=== PATIENT | male | born 1960 | race Caucasian/White ===

== ENCOUNTER 2018-01-28 02:40 | Outpatient (RCR) | payer MEDICARE, SELFPAY ==
[2018-01-28] MEDS: Normal Saline Flush 10 ML SYR IVP (08:15)
[2018-01-28] MEDS: Heparin 500 UNITS/5 ML SYRINGE IV (08:16)
[2018-01-28 08:42] LABS: Creatine Kinase 114 U/L (39-308)
[2018-01-28 09:00] VITALS: BP 126/63; PULSE 61; RESP 18; TEMP 37
[2018-01-28 09:15] VITALS: BP 129/68; PULSE 61; RESP 18; TEMP 37.1
[2018-01-28 09:30] VITALS: BP 149/77; PULSE 59; RESP 20; TEMP 37
[2018-01-28 10:00] VITALS: BP 140/73; PULSE 59; RESP 18; TEMP 37
[2018-01-28 10:30] VITALS: BP 135/65; PULSE 60; RESP 18; TEMP 37.1
[2018-01-28 11:00] VITALS: BP 135/70; PULSE 65; RESP 18; TEMP 37.1
[2018-01-29 08:00] VITALS: BP 132/72; PULSE 60; RESP 17; TEMP 36.1
[2018-01-29] MEDS: Heparin 500 UNITS/5 ML SYRINGE IV (08:06)
[2018-01-29] MEDS: Normal Saline Flush 10 ML SYR IVP (08:06)
[2018-01-29 08:15] VITALS: BP 155/76; PULSE 56; RESP 18; TEMP 37.1
[2018-01-29 08:45] VITALS: BP 144/64; PULSE 46; RESP 18; TEMP 37.1
[2018-01-29 09:15] VITALS: BP 151/69; PULSE 42; RESP 18; TEMP 37.2
[2018-02-04] MEDS: Normal Saline Flush 10 ML SYR IVP (10:29)
[2018-02-04] MEDS: IRON SUCROSE COMPLEX 100 MG in Normal Saline 100 ML 420 MG IVPB (10:29)
[2018-02-04] MEDS: Heparin 500 UNITS/5 ML SYRINGE IV (10:29)
[2018-02-04 10:39] LABS: HCT 30.9 % (40.0-50.0); HGB 9.6 g/dL (13.5-17.5)
== END 2018-02-07 ==
LOC: INF 01-29 01:19
PROVIDERS: PCP Family Medicine; Visit Provider Family Medicine
DX: M60.9 Myositis, unspecified (principal); D63.1 Anemia in chronic kidney disease; N18.3 Chronic kidney disease, stage 3 (moderate); I12.9 Hypertensive chronic kidney disease with stage 1 through stage 4 chronic kidney disease, or unspecified chronic kidney disease; Z45.2 Encounter for adjustment and management of vascular access device
CPT/HCPCS: 36591 ×2; 96365 ×3; 96366 ×2; 96372; J0881; J1459 ×2; J1756; J2930; 82550; 85014; 85018

== ENCOUNTER 2018-03-04 01:38 | Outpatient (RCR) | payer MEDICARE, SELFPAY ==
[2018-02-18] MEDS: Heparin 500 UNITS/5 ML SYRINGE IV (08:10)
[2018-02-18] MEDS: Normal Saline Flush 10 ML SYR IVP (08:10)
[2018-02-18 08:16] LABS: HCT 32.7 % (40.0-50.0); HGB 10.2 g/dL (13.5-17.5)
[2018-02-25] MEDS: Heparin 500 UNITS/5 ML SYRINGE IV (08:24)
[2018-02-25] MEDS: Normal Saline Flush 10 ML SYR IVP (08:24)
[2018-02-25 08:26] LABS: Creatine Kinase 144 U/L (39-308)
[2018-02-25 09:03] VITALS: BP 131/68; PULSE 63; RESP 18; TEMP 37.2
[2018-02-25 09:20] VITALS: BP 130/67; PULSE 62; RESP 18; TEMP 37
[2018-02-26] MEDS: Normal Saline Flush 10 ML SYR IVP (08:15)
[2018-02-26] MEDS: Heparin 500 UNITS/5 ML SYRINGE IV (08:16)
[2018-02-26] MEDS: IRON SUCROSE COMPLEX 100 MG in Normal Saline 100 ML 420 MG IVPB (08:28)
[2018-02-26 08:50] VITALS: BP 148/58; PULSE 50; RESP 18; TEMP 36.8
[2018-02-26 09:05] VITALS: BP 154/60; PULSE 49; RESP 18; TEMP 36.8; O2SAT 95
[2018-02-26 09:35] VITALS: BP 151/56; PULSE 46; RESP 18; TEMP 36.5
[2018-02-26 10:05] VITALS: BP 150/55; PULSE 46; RESP 18; TEMP 36.1
[2018-02-26 10:35] VITALS: BP 164/61; PULSE 46; RESP 18; TEMP 36.5
[2018-03-04] MEDS: Normal Saline Flush 10 ML SYR IVP (07:40)
[2018-03-04] MEDS: Heparin 500 UNITS/5 ML SYRINGE IV (07:40)
[2018-03-04 08:04] LABS: HCT 33.4 % (40.0-50.0); HGB 10.5 g/dL (13.5-17.5)
== END 2018-03-09 23:59 | disposition home or self-care (01) ==
LOC: INF 01:38
PROVIDERS: PCP Family Medicine; Visit Provider Family Medicine
DX: M60.9 Myositis, unspecified (principal); D63.1 Anemia in chronic kidney disease; N18.3 Chronic kidney disease, stage 3 (moderate); I12.9 Hypertensive chronic kidney disease with stage 1 through stage 4 chronic kidney disease, or unspecified chronic kidney disease; Z45.2 Encounter for adjustment and management of vascular access device; D46.9 Myelodysplastic syndrome, unspecified
CPT/HCPCS: 36591; 82550; 96365; 96366; 96372; 85014; 85018; J0881; J1459; J1756; J2930

== ENCOUNTER 2018-04-01 00:54 | Outpatient (RCR) | payer MEDICARE, SELFPAY ==
[2018-03-18] MEDS: Normal Saline Flush 10 ML SYR IVP (07:45)
[2018-03-18 07:50] LABS: HCT 32.5 % (40.0-50.0); HGB 10.3 g/dL (13.5-17.5)
[2018-03-18] MEDS: Heparin 500 UNITS/5 ML SYRINGE IV (07:50)
[2018-03-25] MEDS: Normal Saline Flush 10 ML SYR IVP (07:43)
[2018-03-25] MEDS: Heparin 500 UNITS/5 ML SYRINGE IV (07:44)
[2018-03-25 07:51] VITALS: BP 131/65; PULSE 74; RESP 18; TEMP 37.3; O2SAT 99
[2018-03-25 07:59] LABS: Creatine Kinase 113 U/L (39-308)
[2018-03-25 08:40] VITALS: BP 133/62; PULSE 63; RESP 18; TEMP 37.2; O2SAT 99
[2018-03-25 09:00] VITALS: BP 125/62; PULSE 63; RESP 18; TEMP 37.2; O2SAT 99
[2018-03-25 09:40] VITALS: BP 139/69; PULSE 62; RESP 18; TEMP 37.2; O2SAT 98
[2018-03-25 10:15] VITALS: BP 137/72; PULSE 57; RESP 18; TEMP 37.1; O2SAT 99
[2018-03-26] MEDS: IRON SUCROSE COMPLEX 100 MG in Normal Saline 100 ML 420 MG IVPB (07:46)
[2018-03-26] MEDS: Heparin 500 UNITS/5 ML SYRINGE IV (07:47)
[2018-03-26] MEDS: Normal Saline Flush 10 ML SYR IVP (07:47)
[2018-03-26 08:03] VITALS: BP 126/50; PULSE 61; RESP 18; TEMP 37; O2SAT 97
[2018-03-26 08:25] VITALS: BP 143/59; PULSE 52; RESP 18; TEMP 36.8; O2SAT 98
[2018-03-26 08:40] VITALS: BP 150/58; PULSE 58; RESP 18; TEMP 37; O2SAT 98
[2018-03-26 08:56] VITALS: BP 150/25; PULSE 60; RESP 18; TEMP 37.1; O2SAT 98
[2018-03-26 09:20] VITALS: BP 151/62; PULSE 52; RESP 18; TEMP 37; O2SAT 98
== END 2018-04-09 23:59 | disposition home or self-care (01) ==
LOC: INF 00:54
PROVIDERS: PCP Family Medicine; Visit Provider Internal Medicine Hematology & Oncology
DX: M60.9 Myositis, unspecified (principal); N18.3 Chronic kidney disease, stage 3 (moderate); Z45.2 Encounter for adjustment and management of vascular access device; D63.1 Anemia in chronic kidney disease
CPT/HCPCS: 36591; 82550; 96365; 96366; 96372; 96523; 85014; 85018; J0881; J1459; J1756; J2930

== ENCOUNTER 2018-05-06 01:32 | Outpatient (RCR) | payer MEDICARE, SELFPAY ==
[2018-04-15] MEDS: Normal Saline Flush 10 ML SYR IVP (07:40)
[2018-04-15] MEDS: Heparin 500 UNITS/5 ML SYRINGE IV (07:42)
[2018-04-15 08:14] LABS: HCT 31.4 % (40.0-50.0); HGB 9.8 g/dL (13.5-17.5)
[2018-04-22] MEDS: Normal Saline Flush 10 ML SYR IVP (07:48)
[2018-04-22] MEDS: Heparin 500 UNITS/5 ML SYRINGE IV (07:49)
[2018-04-22 07:58] LABS: Abs Immature Grans 0.02 k/cumm (0.0-0.09); Absolute Basophil Count 0.03 k/cumm (0.0-0.2); Absolute Eosinophil Count 0.34 k/cumm (0.0-0.7); Absolute Lymphocyte Count 0.61 k/cumm (1.2-3.4); Absolute Monocyte Count 0.31 k/cumm (0.11-0.7); Absolute Neutrophil Count 2.61 k/cumm (1.2-6.7); Basophils % 0.8; Eosinophils % 8.7; HCT 32.1 % (40.0-50.0); HGB 10.2 g/dL (13.5-17.5); Immature Grans % 0.5; Lymphocytes % 15.6; Mean Corp. HGB Concentration 31.8 g/dL (32.0-36.0); Mean Corpuscular Hemoglobin 30.4 pg (27.0-33.0); Mean Corpuscular Volume 95.8 fL (80-95); Mean Platelet Volume 11.7 fL (8.0-11.0); Monocytes % 7.9; Neutrophils % 66.5; RBC 3.35 m/cumm (4.50-6.00); RBC Distribution Width 17.3 % (11.8-14.1); White Blood Cell Count 3.92 k/cumm (4.4-10.8)
[2018-04-22 07:59] VITALS: BP 118/61; PULSE 74; RESP 18; TEMP 37.2; O2SAT 99
[2018-04-22 08:10] LABS: Creatine Kinase 112 U/L (39-308)
[2018-04-22 08:17] LABS: Anisocytosis 1+; Diff Comment RBC Morph Reviewed; Platelet Count 86 x1000/uL (130-400); Polychromasia Present
[2018-04-22 08:26] VITALS: BP 115/58; PULSE 70; RESP 18; TEMP 37.1; O2SAT 99
[2018-04-22 08:40] VITALS: BP 129/63; PULSE 70; RESP 18; TEMP 36.8; O2SAT 99
[2018-04-22 09:00] VITALS: BP 129/61; PULSE 71; RESP 18; TEMP 36.8; O2SAT 99
[2018-04-22 10:00] VITALS: BP 135/68; PULSE 65; RESP 18; TEMP 37; O2SAT 99
[2018-04-22 12:21] VITALS: BP 149/68; PULSE 64; TEMP 37.1; O2SAT 100
[2018-04-23] VITALS (7 sets, daily range): BP systolic 138–160; BP diastolic 59–66; PULSE 50–65; RESP 18; TEMP 36.6–37.1; O2SAT 97–99
[2018-04-23] MEDS: Heparin 500 UNITS/5 ML SYRINGE IV (07:27)
[2018-04-23] MEDS: Normal Saline Flush 10 ML SYR IVP (07:27)
[2018-04-23] MEDS: IRON SUCROSE COMPLEX 100 MG in Normal Saline 100 ML 420 MG IVPB (07:32)
[2018-05-06] MEDS: Normal Saline Flush 10 ML SYR IVP (07:45)
[2018-05-06] MEDS: Heparin 500 UNITS/5 ML SYRINGE IV (07:46)
[2018-05-06 08:14] LABS: Abs Immature Grans 0.01 k/cumm (0.0-0.09); Absolute Basophil Count 0.05 k/cumm (0.0-0.2); Absolute Eosinophil Count 0.38 k/cumm (0.0-0.7); Absolute Lymphocyte Count 0.59 k/cumm (1.2-3.4); Absolute Monocyte Count 0.38 k/cumm (0.11-0.7); Eosinophils % 7.9; HCT 31.1 % (40.0-50.0); HGB 9.7 g/dL (13.5-17.5); Immature Grans % 0.2; Lymphocytes % 12.3; Mean Corp. HGB Concentration 31.2 g/dL (32.0-36.0); Mean Corpuscular Hemoglobin 30.4 pg (27.0-33.0); Mean Corpuscular Volume 97.5 fL (80-95); Mean Platelet Volume 11.7 fL (8.0-11.0); Monocytes % 7.9; Neutrophils % 70.7; RBC 3.19 m/cumm (4.50-6.00); White Blood Cell Count 4.81 k/cumm (4.4-10.8)
[2018-05-06 08:26] LABS: Platelet Count 64 x1000/uL (130-400)
[2018-05-06 08:27] LABS: Diff Comment Diff Reviewed; Hypochromasia 2+; Polychromasia Present
== END 2018-05-09 23:59 | disposition home or self-care (01) ==
LOC: INF 01:32
PROVIDERS: Internal Medicine; PCP Family Medicine; Visit Provider Family Medicine
DX: M60.9 Myositis, unspecified (principal); D63.1 Anemia in chronic kidney disease; N18.3 Chronic kidney disease, stage 3 (moderate); Z45.2 Encounter for adjustment and management of vascular access device
CPT/HCPCS: 36591; 36592; 82550; 96365; 96366; 96372; 85014; 85018; 85025; J0881; J1459; J1756; J2930

== ENCOUNTER 2018-06-04 00:34 | Outpatient (RCR) | payer MEDICARE, SELFPAY ==
[2018-05-20 07:48] VITALS: BP 106/44; PULSE 67; RESP 18; TEMP 36.7
[2018-05-20 07:57] LABS: Absolute Basophil Count 0.02 k/cumm (0.0-0.2); Absolute Eosinophil Count 0.35 k/cumm (0.0-0.7); Absolute Lymphocyte Count 0.62 k/cumm (1.2-3.4); Absolute Monocyte Count 0.36 k/cumm (0.11-0.7); Absolute Neutrophil Count 1.94 k/cumm (1.2-6.7); Basophils % 0.6; Eosinophils % 10.6; HCT 30.9 % (40.0-50.0); HGB 9.7 g/dL (13.5-17.5); Lymphocytes % 18.8; Mean Corp. HGB Concentration 31.4 g/dL (32.0-36.0); Mean Corpuscular Hemoglobin 30.9 pg (27.0-33.0); Mean Corpuscular Volume 98.4 fL (80-95); Mean Platelet Volume 11.6 fL (8.0-11.0); Monocytes % 10.9; Neutrophils % 59.1; Platelet Count 76 x1000/uL (130-400); RBC 3.14 m/cumm (4.50-6.00); RBC Distribution Width 16.6 % (11.8-14.1); White Blood Cell Count 3.29 k/cumm (4.4-10.8)
[2018-05-20 07:58] LABS: ALT 35 U/L (12-78); AST 25 U/L (15-37); Albumin 3.2 g/dL (3.4-5.0); Alkaline Phosphatase 146 U/L (46-116); Anion Gap 11.8 mmol/L (3-11); BUN 74 mg/dL (7-18); Bilirubin, Total 0.4 mg/dL (0.2-1.0); CO2 22.2 mmol/L (21.0-32.0); CREATININE 3.22 mg/dL (0.70-1.30); Calcium 8.6 mg/dL (8.5-10.1); Chloride 106 mmol/L (98-107); Creatine Kinase 130 U/L (39-308); Estimated GFR 19.77 (mL/min/1.73m2); Glucose 116 mg/dL (70-100); Potassium 4.7 mmol/L (3.5-5.1); Sodium 140 mmol/L (136-145); Total Protein 7.7 g/dL (6.4-8.2)
[2018-05-20 08:16] VITALS: BP 107/46; PULSE 66; TEMP 36.7
[2018-05-20 08:32] VITALS: BP 110/47; PULSE 66; TEMP 36.4
[2018-05-20 08:52] VITALS: BP 99/43; PULSE 60; TEMP 36.3
[2018-05-20 09:51] VITALS: BP 138/57; PULSE 62; TEMP 36.4
[2018-05-20 10:45] VITALS: BP 130/58; PULSE 64; RESP 16; TEMP 36.4; O2SAT 97
[2018-05-20] MEDS: Normal Saline Flush 10 ML SYR IVP (12:22)
[2018-05-21 07:22] VITALS: BP 139/55; PULSE 56; RESP 16; TEMP 36.5; O2SAT 99
[2018-05-21 07:49] VITALS: BP 144/55; PULSE 52; RESP 16; TEMP 36.7; O2SAT 97
[2018-05-21 08:08] VITALS: BP 134/51; PULSE 50; RESP 14; TEMP 36.6; O2SAT 98
[2018-05-21] MEDS: Normal Saline Flush 10 ML SYR IVP (08:24)
[2018-05-21] MEDS: Heparin 500 UNITS/5 ML SYRINGE IV (08:24)
[2018-05-21 08:34] VITALS: BP 134/51; PULSE 50; RESP 16; TEMP 36.6; O2SAT 98
[2018-05-21 09:27] VITALS: BP 154/63; PULSE 49; RESP 16; TEMP 36.5; O2SAT 98
[2018-05-21 10:06] VITALS: BP 164/55; PULSE 55; RESP 14; TEMP 36.3; O2SAT 99
[2018-06-04 07:36] LABS: HCT 30.4 % (40.0-50.0); HGB 9.7 g/dL (13.5-17.5)
[2018-06-04] MEDS: Normal Saline Flush 10 ML SYR IVP (07:43)
[2018-06-04] MEDS: Heparin 500 UNITS/5 ML SYRINGE IV (07:44)
== END 2018-06-09 23:59 | disposition home or self-care (01) ==
LOC: INF 00:34
PROVIDERS: Internal Medicine; PCP Family Medicine; Visit Provider Family Medicine
DX: M60.9 Myositis, unspecified (principal); D63.1 Anemia in chronic kidney disease; N18.3 Chronic kidney disease, stage 3 (moderate); Z45.2 Encounter for adjustment and management of vascular access device
CPT/HCPCS: 36591; 80053; 82550; 96365; 96366; 96372; 96523; 85014; 85018; 85025; J0881; J1459; J1756; J2930

== ENCOUNTER 2018-07-03 00:52 | Outpatient (RCR) | payer MEDICARE, SELFPAY ==
[2018-06-17 07:50] VITALS: BP 114/54; PULSE 69; RESP 18; TEMP 36.7; O2SAT 98
[2018-06-17 08:02] LABS: Absolute Basophil Count 0.02 k/cumm (0.0-0.2); Absolute Eosinophil Count 0.45 k/cumm (0.0-0.7); Absolute Lymphocyte Count 0.59 k/cumm (1.2-3.4); Absolute Monocyte Count 0.41 k/cumm (0.11-0.7); Absolute Neutrophil Count 2.35 k/cumm (1.2-6.7); Basophils % 0.5; Eosinophils % 11.8; HCT 31.1 % (40.0-50.0); HGB 9.8 g/dL (13.5-17.5); Lymphocytes % 15.4; Mean Corp. HGB Concentration 31.5 g/dL (32.0-36.0); Mean Corpuscular Hemoglobin 30.6 pg (27.0-33.0); Mean Corpuscular Volume 97.2 fL (80-95); Mean Platelet Volume 11.3 fL (8.0-11.0); Monocytes % 10.7; Neutrophils % 61.6; RBC Distribution Width 16.2 % (11.8-14.1); White Blood Cell Count 3.82 k/cumm (4.4-10.8)
[2018-06-17 08:16] LABS: Platelet Count 87 x1000/uL (130-400)
[2018-06-17 08:17] LABS: Anisocytosis 1+; Diff Comment Diff Reviewed
[2018-06-17 08:21] LABS: ALT 22 U/L (12-78); AST 19 U/L (15-37); Alkaline Phosphatase 132 U/L (46-116); Anion Gap 12.1 mmol/L (3-11); BUN 59 mg/dL (7-18); Bilirubin, Total 0.4 mg/dL (0.2-1.0); CO2 21.9 mmol/L (21.0-32.0); CREATININE 2.42 mg/dL (0.70-1.30); Calcium 8.7 mg/dL (8.5-10.1); Chloride 105 mmol/L (98-107); Creatine Kinase 97 U/L (39-308); Estimated GFR 27.49 (mL/min/1.73m2); Glucose 114 mg/dL (70-100); Potassium 4.1 mmol/L (3.5-5.1); Sodium 139 mmol/L (136-145); Total Protein 7.7 g/dL (6.4-8.2)
[2018-06-17 08:42] LABS: Iron 46 ug/dL (50-175); Total Iron Binding Capacity 353 ug/dL (250-450); Transferrin Sat 13 % (20-55)
[2018-06-17] MEDS: Normal Saline Flush 10 ML SYR IVP ×2 (08:54→12:31)
[2018-06-17 08:57] VITALS: BP 116/55; PULSE 64; RESP 18; TEMP 36.5; O2SAT 99
[2018-06-17 09:13] VITALS: BP 118/62; PULSE 58; RESP 18; TEMP 36.7; O2SAT 99
[2018-06-17 09:45] VITALS: BP 116/58; PULSE 57; RESP 18; TEMP 36.5; O2SAT 99
[2018-06-17 10:15] VITALS: BP 144/67; PULSE 58; RESP 18; TEMP 37; O2SAT 99
[2018-06-17 10:56] VITALS: BP 146/69; PULSE 57; RESP 18; TEMP 36.8; O2SAT 100
[2018-06-17] MEDS: Heparin 500 UNITS/5 ML SYRINGE IV ×2 (12:07→12:31)
[2018-06-18 07:28] VITALS: BP 125/53; PULSE 68; RESP 18; TEMP 36.8; O2SAT 98
[2018-06-18 07:40] VITALS: BP 124/56; PULSE 64; RESP 18; TEMP 36.7; O2SAT 97
[2018-06-18 07:54] VITALS: BP 130/53; PULSE 60; RESP 18; TEMP 36.8; O2SAT 97
[2018-06-18 08:25] VITALS: BP 125/53; PULSE 52; RESP 18; TEMP 37; O2SAT 98
[2018-06-18 08:53] VITALS: BP 147/59; PULSE 54; RESP 18; TEMP 36.7; O2SAT 97
[2018-06-18 09:25] VITALS: BP 147/61; PULSE 52; RESP 18; TEMP 36.5; O2SAT 98
[2018-06-18] MEDS: Normal Saline Flush 10 ML SYR IVP (11:22)
[2018-06-18] MEDS: Heparin 500 UNITS/5 ML SYRINGE IV (11:23)
[2018-07-03 07:38] LABS: HGB 10.3 g/dL (13.5-17.5)
[2018-07-03] MEDS: Normal Saline Flush 10 ML SYR IVP (07:47)
[2018-07-03] MEDS: Heparin 500 UNITS/5 ML SYRINGE IV (07:48)
== END 2018-07-10 23:59 | disposition home or self-care (01) ==
LOC: INF 00:52
PROVIDERS: Internal Medicine; PCP Family Medicine; Visit Provider Family Medicine
DX: M60.9 Myositis, unspecified (principal); D63.1 Anemia in chronic kidney disease; N18.3 Chronic kidney disease, stage 3 (moderate); Z45.2 Encounter for adjustment and management of vascular access device
CPT/HCPCS: 36591; 80053; 82550; 96365; 96366; 96372; 96523; 83540; 83550; 85014; 85018; 85025; J0881; J1459; J1756; J2930

== ENCOUNTER 2018-07-29 00:23 | Outpatient (RCR) | payer MEDICARE, SELFPAY ==
[2018-07-15] VITALS (7 sets, daily range): BP systolic 101–133; BP diastolic 53–65; PULSE 60–77; RESP 18; TEMP 36.4–36.9; O2SAT 98–100
[2018-07-15] MEDS: Normal Saline Flush 10 ML SYR IVP (08:04)
[2018-07-15] MEDS: Heparin 500 UNITS/5 ML SYRINGE IV (08:04)
[2018-07-15 08:07] LABS: HCT 32.2 % (40.0-50.0); HGB 10.1 g/dL (13.5-17.5)
[2018-07-15 08:20] LABS: Creatine Kinase 131 U/L (39-308)
[2018-07-16 07:21] VITALS: BP 128/56; PULSE 65; RESP 18; TEMP 37; O2SAT 97
[2018-07-16 07:45] VITALS: BP 146/57; PULSE 57; RESP 18; TEMP 36.6; O2SAT 99
[2018-07-16 07:59] VITALS: BP 145/55; PULSE 61; RESP 18; TEMP 36.5; O2SAT 100
[2018-07-16 08:30] VITALS: BP 170/56; PULSE 52; RESP 18; TEMP 36.6; O2SAT 99
[2018-07-16 09:27] VITALS: BP 165/55; PULSE 53; RESP 18; TEMP 36.6; O2SAT 98
[2018-07-29] MEDS: Heparin 500 UNITS/5 ML SYRINGE IV (07:35)
[2018-07-29] MEDS: Normal Saline Flush 10 ML SYR IVP (07:35)
[2018-07-29 07:49] LABS: HCT 32.4 % (40.0-50.0); HGB 10.1 g/dL (13.5-17.5)
== END 2018-08-07 23:59 | disposition home or self-care (01) ==
LOC: INF 00:23
PROVIDERS: Internal Medicine; PCP Family Medicine; Visit Provider Family Medicine
DX: M60.9 Myositis, unspecified (principal); D53.9 Nutritional anemia, unspecified; D63.1 Anemia in chronic kidney disease; N18.3 Chronic kidney disease, stage 3 (moderate); Z45.2 Encounter for adjustment and management of vascular access device
CPT/HCPCS: 36591; 82550; 96365; 96366; 96372; 85014; 85018; J0881; J1459; J1756; J2930

== ENCOUNTER 2018-08-26 01:36 | Outpatient (RCR) | payer MEDICARE, SELFPAY ==
[2018-08-11 07:28] LABS: HCT 33.5 % (40.0-50.0); HGB 10.6 g/dL (13.5-17.5)
[2018-08-11] MEDS: Normal Saline Flush 10 ML SYR IVP (07:39)
[2018-08-11] MEDS: Heparin 500 UNITS/5 ML SYRINGE IV (07:39)
[2018-08-11 07:46] LABS: Creatine Kinase 116 U/L (39-308)
[2018-08-11 07:51] VITALS: BP 101/63; PULSE 65; RESP 18; TEMP 36.1; O2SAT 97
[2018-08-11 08:25] VITALS: BP 114/53; PULSE 64; RESP 18; TEMP 36; O2SAT 98
[2018-08-11 08:53] VITALS: BP 121/55; PULSE 62; RESP 18; TEMP 36.1; O2SAT 98
[2018-08-11 09:26] VITALS: BP 129/58; PULSE 62; RESP 18; TEMP 36.2; O2SAT 97
[2018-08-11 10:20] VITALS: BP 140/67; PULSE 60; RESP 16; TEMP 36.1; O2SAT 95
[2018-08-11 10:59] VITALS: BP 153/72; PULSE 61; RESP 18; TEMP 36; O2SAT 98
[2018-08-12 07:09] VITALS: BP 142/68; PULSE 63; RESP 18; TEMP 36.1; O2SAT 98
[2018-08-12] MEDS: Heparin 500 UNITS/5 ML SYRINGE IV (07:09)
[2018-08-12] MEDS: Normal Saline Flush 10 ML SYR IVP (07:09)
[2018-08-12 07:30] VITALS: BP 150/60; PULSE 59; RESP 18; TEMP 37; O2SAT 98
[2018-08-12 08:06] VITALS: BP 147/56; PULSE 55; RESP 16; TEMP 37; O2SAT 97
[2018-08-12 08:27] VITALS: BP 147/49; PULSE 56; RESP 18; TEMP 36.8; O2SAT 96
[2018-08-12 09:03] VITALS: BP 151/60; PULSE 51; RESP 18; TEMP 36.9; O2SAT 95
[2018-08-26] MEDS: Heparin 500 UNITS/5 ML SYRINGE IV (07:36)
[2018-08-26] MEDS: Normal Saline Flush 10 ML SYR IVP (07:36)
[2018-08-26 07:38] LABS: Absolute Basophil Count 0.04 k/cumm (0.0-0.2); Absolute Eosinophil Count 0.39 k/cumm (0.0-0.7); Absolute Lymphocyte Count 0.64 k/cumm (1.2-3.4); Absolute Monocyte Count 0.39 k/cumm (0.11-0.7); Absolute Neutrophil Count 2.88 k/cumm (1.2-6.7); Basophils % 0.9; HCT 34.6 % (40.0-50.0); Lymphocytes % 14.7; Mean Corp. HGB Concentration 31.8 g/dL (32.0-36.0); Mean Corpuscular Hemoglobin 31.3 pg (27.0-33.0); Mean Corpuscular Volume 98.3 fL (80-95); Mean Platelet Volume 11.7 fL (8.0-11.0); Neutrophils % 66.4; RBC 3.52 m/cumm (4.50-6.00); RBC Distribution Width 15.7 % (11.8-14.1); White Blood Cell Count 4.34 k/cumm (4.4-10.8)
[2018-08-26 08:01] LABS: ALT 27 U/L (12-78); AST 23 U/L (15-37); Albumin 3.1 g/dL (3.4-5.0); Alkaline Phosphatase 150 U/L (46-116); Anion Gap 11.3 mmol/L (3-11); BUN 58 mg/dL (7-18); Bilirubin, Total 0.6 mg/dL (0.2-1.0); CO2 23.7 mmol/L (21.0-32.0); CREATININE 2.05 mg/dL (0.70-1.30); Calcium 9.1 mg/dL (8.5-10.1); Chloride 104 mmol/L (98-107); Estimated GFR 33.29 (mL/min/1.73m2); Glucose 138 mg/dL (70-100); Sodium 139 mmol/L (136-145); Total Protein 8.5 g/dL (6.4-8.2)
[2018-08-26 08:24] LABS: Iron 67 ug/dL (50-175); Platelet Count 68 x1000/uL (130-400); Total Iron Binding Capacity 330 ug/dL (250-450); Transferrin Sat 20 % (20-55)
[2018-08-26 08:25] LABS: Diff Comment Diff Reviewed; RBC Morphology Normal
[2018-08-26 08:39] VITALS: BP 151/60; PULSE 51; RESP 18; TEMP 36.9; O2SAT 95
== END 2018-09-07 23:59 | disposition home or self-care (01) ==
LOC: INF 01:36
PROVIDERS: PCP Family Medicine; Visit Provider Family Medicine
DX: M60.9 Myositis, unspecified (principal); D53.9 Nutritional anemia, unspecified; N18.3 Chronic kidney disease, stage 3 (moderate); D63.1 Anemia in chronic kidney disease; Z45.2 Encounter for adjustment and management of vascular access device
CPT/HCPCS: 36591; 80053; 82550; 96365; 96366; 96372; 83540; 83550; 85014; 85018; 85025; J0881; J1459; J1756; J2930

== ENCOUNTER 2018-10-07 01:04 | Outpatient (RCR) | payer MEDICARE, SELFPAY ==
[2018-09-08] VITALS (7 sets, daily range): BP systolic 106–142; BP diastolic 59–69; PULSE 58–65; RESP 18; TEMP 36.5–36.7; O2SAT 97–99
[2018-09-08 07:57] LABS: Absolute Basophil Count 0.04 k/cumm (0.0-0.2); Absolute Eosinophil Count 0.43 k/cumm (0.0-0.7); Absolute Lymphocyte Count 0.59 k/cumm (1.2-3.4); Absolute Monocyte Count 0.34 k/cumm (0.11-0.7); Absolute Neutrophil Count 2.19 k/cumm (1.2-6.7); Basophils % 1.1; HCT 33.9 % (40.0-50.0); HGB 10.9 g/dL (13.5-17.5); Lymphocytes % 16.4; Mean Corp. HGB Concentration 32.2 g/dL (32.0-36.0); Mean Corpuscular Hemoglobin 31.3 pg (27.0-33.0); Mean Corpuscular Volume 97.4 fL (80-95); Mean Platelet Volume 11.7 fL (8.0-11.0); Monocytes % 9.5; RBC 3.48 m/cumm (4.50-6.00); RBC Distribution Width 15.8 % (11.8-14.1); White Blood Cell Count 3.59 k/cumm (4.4-10.8)
[2018-09-08] MEDS: methylPREDNISolone SUCC 500 MG in Normal Saline 100 ML 432 MG IVPB (08:12)
[2018-09-08 08:13] LABS: ALT 28 U/L (12-78); AST 28 U/L (15-37); Albumin 3.2 g/dL (3.4-5.0); Alkaline Phosphatase 152 U/L (46-116); Anion Gap 10.6 mmol/L (3-11); BUN 54 mg/dL (7-18); Bilirubin, Total 0.4 mg/dL (0.2-1.0); CO2 24.4 mmol/L (21.0-32.0); CREATININE 1.86 mg/dL (0.70-1.30); Calcium 8.9 mg/dL (8.5-10.1); Chloride 106 mmol/L (98-107); Estimated GFR 37.24 (mL/min/1.73m2); Glucose 137 mg/dL (70-100); Potassium 3.9 mmol/L (3.5-5.1); Sodium 141 mmol/L (136-145); Total Protein 7.8 g/dL (6.4-8.2)
[2018-09-08] MEDS: Normal Saline Flush 10 ML SYR IVP (08:16)
[2018-09-08] MEDS: Heparin 500 UNITS/5 ML SYRINGE IV (08:16)
[2018-09-08 08:19] LABS: Anisocytosis 2+; Diff Comment Diff Reviewed; Iron 61 ug/dL (50-175); Platelet Count 72 x1000/uL (130-400); Poikilocytes 1+; Total Iron Binding Capacity 364 ug/dL (250-450); Transferrin Sat 17 % (20-55)
[2018-09-08 08:25] LABS: C-Reactive Protein 0.65 mg/dL (0.0-0.3)
[2018-09-08 09:58] LABS: Creatine Kinase 418 U/L (39-308)
[2018-09-09 07:09] VITALS: BP 140/62; PULSE 61; RESP 18; TEMP 36.6; O2SAT 99
[2018-09-09] MEDS: Heparin 500 UNITS/5 ML SYRINGE IV (07:19)
[2018-09-09] MEDS: Normal Saline Flush 10 ML SYR IVP (07:19)
[2018-09-09 07:40] VITALS: BP 130/70; PULSE 65; RESP 18; TEMP 36.5; O2SAT 99
[2018-09-09 08:00] VITALS: BP 120/62; PULSE 65; RESP 18; TEMP 36.6; O2SAT 98
[2018-09-09 08:36] VITALS: BP 146/57; PULSE 51; RESP 18; TEMP 36
[2018-09-09 09:00] VITALS: BP 159/64; PULSE 60; RESP 18; TEMP 36.6; O2SAT 99
[2018-09-23 07:39] LABS: HCT 32.9 % (40.0-50.0); HGB 10.4 g/dL (13.5-17.5)
[2018-09-23] MEDS: Normal Saline Flush 10 ML SYR IVP (08:00)
[2018-09-23] MEDS: Heparin 500 UNITS/5 ML SYRINGE IV (08:27)
[2018-10-07] VITALS (8 sets, daily range): BP systolic 125–176; BP diastolic 70–91; PULSE 53–65; RESP 16–18; TEMP 36.4–36.9; O2SAT 97–99
[2018-10-07 07:27] LABS: Abs Immature Grans 0.01 k/cumm (0.0-0.09); Absolute Basophil Count 0.04 k/cumm (0.0-0.2); Absolute Eosinophil Count 0.43 k/cumm (0.0-0.7); Absolute Lymphocyte Count 0.61 k/cumm (1.2-3.4); Absolute Monocyte Count 0.37 k/cumm (0.11-0.7); Absolute Neutrophil Count 1.86 k/cumm (1.2-6.7); Basophils % 1.2; HCT 33.8 % (40.0-50.0); HGB 10.7 g/dL (13.5-17.5); Immature Grans % 0.3; Lymphocytes % 18.4; Mean Corp. HGB Concentration 31.7 g/dL (32.0-36.0); Mean Corpuscular Hemoglobin 31.7 pg (27.0-33.0); Mean Platelet Volume 10.8 fL (8.0-11.0); Monocytes % 11.1; RBC 3.38 m/cumm (4.50-6.00); RBC Distribution Width 15.9 % (11.8-14.1); White Blood Cell Count 3.32 k/cumm (4.4-10.8)
[2018-10-07 07:44] LABS: ALT 25 U/L (12-78); AST 20 U/L (15-37); Albumin 3.2 g/dL (3.4-5.0); Alkaline Phosphatase 124 U/L (46-116); BUN 57 mg/dL (7-18); Bilirubin, Total 0.4 mg/dL (0.2-1.0); CREATININE 1.84 mg/dL (0.70-1.30); Calcium 8.6 mg/dL (8.5-10.1); Chloride 104 mmol/L (98-107); Creatine Kinase 100 U/L (39-308); Estimated GFR 37.71 (mL/min/1.73m2); Glucose 182 mg/dL (70-100); Potassium 4.2 mmol/L (3.5-5.1); Sodium 137 mmol/L (136-145); Total Protein 7.6 g/dL (6.4-8.2)
[2018-10-07] MEDS: methylPREDNISolone SUCC 500 MG in Normal Saline 100 ML 432 MG IVPB (07:45)
[2018-10-07] MEDS: Normal Saline Flush 10 ML SYR IVP (07:46)
[2018-10-07 07:51] LABS: Iron 58 ug/dL (50-175); Total Iron Binding Capacity 349 ug/dL (250-450); Transferrin Sat 17 % (20-55)
[2018-10-07 07:53] LABS: Anisocytosis 1+; Diff Comment RBC Morph Reviewed; Macrocytosis 1+; Platelet Count 70 x1000/uL (130-400)
[2018-10-07] MEDS: Heparin 500 UNITS/5 ML SYRINGE IV (12:00)
== END 2018-10-07 23:59 | disposition home or self-care (01) ==
LOC: INF 01:04
PROVIDERS: Nurse Practitioner Adult Health; PCP Family Medicine; Visit Provider Family Medicine
DX: M60.9 Myositis, unspecified (principal); D50.9 Iron deficiency anemia, unspecified; N18.3 Chronic kidney disease, stage 3 (moderate); D63.1 Anemia in chronic kidney disease
CPT/HCPCS: 36591; 80053; 82550; 96365; 96366; 96372; 83540; 83550; 85014; 85018; 85025; 86140; J0881; J1459; J1756; J2930

== ENCOUNTER 2018-11-06 01:55 | Outpatient (RCR) | payer MEDICARE, SELFPAY ==
[2018-10-08 07:31] VITALS: BP 168/75; PULSE 47; RESP 18; TEMP 36.7; O2SAT 98
[2018-10-08 07:45] VITALS: BP 167/73; PULSE 47; RESP 18; TEMP 36.7; O2SAT 98
[2018-10-08 08:00] VITALS: BP 159/64; PULSE 50; RESP 18; TEMP 36.5; O2SAT 99
[2018-10-08 08:41] VITALS: BP 164/72; PULSE 46; RESP 18; TEMP 36.6; O2SAT 100
[2018-10-08 09:16] VITALS: BP 186/75; PULSE 49; RESP 16; O2SAT 99
[2018-10-08 10:30] VITALS: BP 181/95; PULSE 42; RESP 16; TEMP 36.6; O2SAT 100
[2018-10-08] MEDS: Heparin 500 UNITS/5 ML SYRINGE IV (10:59)
[2018-10-08] MEDS: Normal Saline Flush 10 ML SYR IVP (11:00)
[2018-10-20] MEDS: Normal Saline Flush 10 ML SYR IVP (07:25)
[2018-10-20] MEDS: Heparin 500 UNITS/5 ML SYRINGE IV (07:26)
[2018-10-20 07:39] LABS: Absolute Basophil Count 0.04 k/cumm (0.0-0.2); Absolute Eosinophil Count 0.32 k/cumm (0.0-0.7); Absolute Lymphocyte Count 0.62 k/cumm (1.2-3.4); Absolute Monocyte Count 0.33 k/cumm (0.11-0.7); Absolute Neutrophil Count 1.28 k/cumm (1.2-6.7); Basophils % 1.5; Eosinophils % 12.4; HCT 33.2 % (40.0-50.0); HGB 10.4 g/dL (13.5-17.5); Lymphocytes % 23.9; Mean Corp. HGB Concentration 31.3 g/dL (32.0-36.0); Mean Corpuscular Hemoglobin 31.2 pg (27.0-33.0); Mean Corpuscular Volume 99.7 fL (80-95); Mean Platelet Volume 11.8 fL (8.0-11.0); Monocytes % 12.7; Neutrophils % 49.5; RBC 3.33 m/cumm (4.50-6.00); RBC Distribution Width 15.6 % (11.8-14.1); White Blood Cell Count 2.59 k/cumm (4.4-10.8)
[2018-10-20 07:45] LABS: CREATININE 1.89 mg/dL (0.70-1.30); Estimated GFR 36.56 (mL/min/1.73m2)
[2018-10-20 07:58] LABS: Iron 65 ug/dL (50-175); Platelet Count 62 x1000/uL (130-400); RBC Morphology Normal
[2018-11-04 07:18] VITALS: BP 114/70; PULSE 65; RESP 18; TEMP 36.3; O2SAT 98
[2018-11-04] MEDS: methylPREDNISolone SUCC 500 MG in Normal Saline 100 ML 432 MG IVPB (07:21)
[2018-11-04] MEDS: Normal Saline Flush 10 ML SYR IVP (07:22)
[2018-11-04 07:36] LABS: Abs Immature Grans 0.01 k/cumm (0.0-0.09); Absolute Basophil Count 0.03 k/cumm (0.0-0.2); Absolute Eosinophil Count 0.45 k/cumm (0.0-0.7); Absolute Lymphocyte Count 0.67 k/cumm (1.2-3.4); Absolute Monocyte Count 0.36 k/cumm (0.11-0.7); Basophils % 0.8; Eosinophils % 12.1; HCT 34.3 % (40.0-50.0); Immature Grans % 0.3; Mean Corp. HGB Concentration 32.1 g/dL (32.0-36.0); Mean Corpuscular Hemoglobin 31.7 pg (27.0-33.0); Mean Corpuscular Volume 98.8 fL (80-95); Mean Platelet Volume 11.5 fL (8.0-11.0); Monocytes % 9.7; Neutrophils % 59.1; RBC 3.47 m/cumm (4.50-6.00); RBC Distribution Width 15.8 % (11.8-14.1); White Blood Cell Count 3.73 k/cumm (4.4-10.8)
[2018-11-04 07:50] LABS: ALT 24 U/L (12-78); AST 14 U/L (15-37); Albumin 3.2 g/dL (3.4-5.0); Alkaline Phosphatase 125 U/L (46-116); Anion Gap 12.4 mmol/L (3-11); Bilirubin, Total 0.3 mg/dL (0.2-1.0); CO2 22.6 mmol/L (21.0-32.0); CREATININE 2.88 mg/dL (0.70-1.30); Calcium 8.5 mg/dL (8.5-10.1); Chloride 105 mmol/L (98-107); Creatine Kinase 138 U/L (39-308); Estimated GFR 22.49 (mL/min/1.73m2); Glucose 108 mg/dL (70-100); Potassium 4.1 mmol/L (3.5-5.1); Sodium 140 mmol/L (136-145); Total Protein 7.7 g/dL (6.4-8.2)
[2018-11-04 07:55] LABS: Anisocytosis 1+; Basophilic Stippling Present; Diff Comment RBC Morph Reviewed; Platelet Count 74 x1000/uL (130-400); Polychromasia Present
[2018-11-04 07:57] LABS: BUN 90 mg/dL (7-18)
[2018-11-04 08:06] VITALS: BP 116/69; PULSE 62; RESP 18; TEMP 36.1; O2SAT 98
[2018-11-04 08:30] VITALS: BP 137/73; PULSE 63; RESP 18; TEMP 36.5; O2SAT 98
[2018-11-04 08:33] LABS: Iron 54 ug/dL (50-175); Total Iron Binding Capacity 311 ug/dL (250-450); Transferrin Sat 17 % (20-55)
[2018-11-04 09:05] VITALS: BP 126/74; PULSE 59; RESP 18; TEMP 36.3; O2SAT 98
[2018-11-04 10:14] VITALS: BP 127/76; PULSE 59; RESP 18; TEMP 36.5; O2SAT 98
[2018-11-04 11:21] VITALS: BP 137/85; PULSE 60; RESP 18; TEMP 35.8; O2SAT 98
[2018-11-06 07:01] VITALS: BP 132/69; PULSE 55; RESP 18; TEMP 36.2; O2SAT 98
[2018-11-06] MEDS: Normal Saline Flush 10 ML SYR IVP (07:17)
[2018-11-06 07:18] VITALS: BP 128/72; PULSE 55; RESP 18; TEMP 36.1; O2SAT 98
[2018-11-06] MEDS: Heparin 500 UNITS/5 ML SYRINGE IV (07:18)
[2018-11-06 07:51] VITALS: BP 121/59; PULSE 58; RESP 18; TEMP 36; O2SAT 98
[2018-11-06 08:48] VITALS: BP 134/77; PULSE 49; TEMP 36.6; O2SAT 100
[2018-11-06 09:30] VITALS: BP 167/77; PULSE 43; RESP 18; TEMP 36.3; O2SAT 98
[2018-11-06 10:45] VITALS: BP 147/74; PULSE 50; RESP 18; TEMP 36.1; O2SAT 98
== END 2018-11-07 23:59 | disposition home or self-care (01) ==
LOC: INF 01:55
PROVIDERS: Internal Medicine; PCP Family Medicine; Visit Provider Family Medicine
DX: M60.9 Myositis, unspecified (principal); N18.3 Chronic kidney disease, stage 3 (moderate); D63.1 Anemia in chronic kidney disease; D53.9 Nutritional anemia, unspecified
CPT/HCPCS: 36591; 80053; 82550; 96365; 96366; 96372; 82565; 83540; 83550; 85025; J0881; J1459; J1756; J2930

== ENCOUNTER 2018-12-02 01:30 | Outpatient (RCR) | payer MEDICARE, SELFPAY ==
[2018-11-17 08:04] LABS: Abs Immature Grans 0.01 k/cumm (0.0-0.09); Absolute Basophil Count 0.03 k/cumm (0.0-0.2); Absolute Eosinophil Count 0.37 k/cumm (0.0-0.7); Absolute Lymphocyte Count 0.64 k/cumm (1.2-3.4); Absolute Monocyte Count 0.48 k/cumm (0.11-0.7); Absolute Neutrophil Count 2.59 k/cumm (1.2-6.7); Basophils % 0.7; HCT 35.6 % (40.0-50.0); HGB 11.1 g/dL (13.5-17.5); Immature Grans % 0.2; Lymphocytes % 15.5; Mean Corp. HGB Concentration 31.2 g/dL (32.0-36.0); Mean Corpuscular Hemoglobin 31.1 pg (27.0-33.0); Mean Corpuscular Volume 99.7 fL (80-95); Mean Platelet Volume 11.1 fL (8.0-11.0); Monocytes % 11.7; Neutrophils % 62.9; RBC 3.57 m/cumm (4.50-6.00); RBC Distribution Width 15.6 % (11.8-14.1); White Blood Cell Count 4.12 k/cumm (4.4-10.8)
[2018-11-17 08:17] LABS: ALT 35 U/L (12-78); AST 25 U/L (15-37); Albumin 3.1 g/dL (3.4-5.0); Alkaline Phosphatase 129 U/L (46-116); Anion Gap 9.9 mmol/L (3-11); BUN 64 mg/dL (7-18); Bilirubin, Total 0.5 mg/dL (0.2-1.0); CO2 25.1 mmol/L (21.0-32.0); CREATININE 2.15 mg/dL (0.70-1.30); Calcium 8.9 mg/dL (8.5-10.1); Chloride 102 mmol/L (98-107); Estimated GFR 31.51 (mL/min/1.73m2); Glucose 126 mg/dL (70-100); Potassium 4.1 mmol/L (3.5-5.1); Sodium 137 mmol/L (136-145); Total Protein 8.8 g/dL (6.4-8.2)
[2018-11-17] MEDS: Heparin 500 UNITS/5 ML SYRINGE IV (08:20)
[2018-11-17] MEDS: Normal Saline Flush 10 ML SYR IVP (08:20)
[2018-11-17 08:27] LABS: Anisocytosis 1+; Platelet Count 66 x1000/uL (130-400); Polychromasia Present
[2018-12-01 07:24] VITALS: BP 127/65; PULSE 68; RESP 18; TEMP 37.1; O2SAT 98
[2018-12-01] MEDS: Normal Saline Flush 10 ML SYR IVP ×2 (07:25→07:44)
[2018-12-01] MEDS: methylPREDNISolone SUCC 500 MG in Normal Saline 100 ML 432 MG IVPB (07:25)
[2018-12-01 07:42] LABS: ALT 24 U/L (12-78); AST 20 U/L (15-37); Albumin 3.2 g/dL (3.4-5.0); Alkaline Phosphatase 126 U/L (46-116); Anion Gap 12.6 mmol/L (3-11); BUN 64 mg/dL (7-18); Bilirubin, Total 0.6 mg/dL (0.2-1.0); CO2 24.4 mmol/L (21.0-32.0); CREATININE 2.28 mg/dL (0.70-1.30); Calcium 8.7 mg/dL (8.5-10.1); Chloride 104 mmol/L (98-107); Estimated GFR 29.45 (mL/min/1.73m2); Glucose 114 mg/dL (70-100); Potassium 4.2 mmol/L (3.5-5.1); Sodium 141 mmol/L (136-145)
[2018-12-01] MEDS: Heparin 500 UNITS/5 ML SYRINGE IV (07:44)
[2018-12-01 07:46] LABS: Abs Immature Grans 0.01 k/cumm (0.0-0.09); Absolute Basophil Count 0.04 k/cumm (0.0-0.2); Absolute Eosinophil Count 0.48 k/cumm (0.0-0.7); Absolute Lymphocyte Count 0.67 k/cumm (1.2-3.4); Absolute Monocyte Count 0.48 k/cumm (0.11-0.7); Absolute Neutrophil Count 2.89 k/cumm (1.2-6.7); Basophils % 0.9; Eosinophils % 10.5; HCT 36.4 % (40.0-50.0); HGB 11.5 g/dL (13.5-17.5); Immature Grans % 0.2; Lymphocytes % 14.7; Mean Corp. HGB Concentration 31.6 g/dL (32.0-36.0); Mean Corpuscular Hemoglobin 31.4 pg (27.0-33.0); Mean Corpuscular Volume 99.5 fL (80-95); Mean Platelet Volume 11.7 fL (8.0-11.0); Monocytes % 10.5; Neutrophils % 63.2; RBC 3.66 m/cumm (4.50-6.00); RBC Distribution Width 15.7 % (11.8-14.1); White Blood Cell Count 4.57 k/cumm (4.4-10.8)
[2018-12-01 07:58] VITALS: BP 150/78; PULSE 70; RESP 18; TEMP 37.1; O2SAT 97
[2018-12-01 08:07] LABS: Platelet Count 74 x1000/uL (130-400)
[2018-12-01 08:19] VITALS: BP 139/80; PULSE 65; TEMP 37; O2SAT 99
[2018-12-01 08:19] LABS: Iron 83 ug/dL (50-175); Total Iron Binding Capacity 324 ug/dL (250-450); Transferrin Sat 26 % (20-55)
[2018-12-01 08:35] VITALS: BP 133/70; PULSE 62; RESP 18; TEMP 37.1; O2SAT 95
[2018-12-01 09:07] VITALS: BP 145/75; PULSE 63; RESP 18; TEMP 37; O2SAT 98
[2018-12-01 09:37] VITALS: BP 138/76; PULSE 62; RESP 18; TEMP 37; O2SAT 98
[2018-12-02] VITALS (7 sets, daily range): BP systolic 137–169; BP diastolic 58–77; PULSE 45–56; RESP 18; TEMP 35.1–36.1; O2SAT 98–99
[2018-12-02] MEDS: Normal Saline Flush 10 ML SYR IVP (07:17)
[2018-12-02] MEDS: Heparin 500 UNITS/5 ML SYRINGE IV (07:18)
== END 2018-12-07 23:59 | disposition home or self-care (01) ==
LOC: INF 01:30
PROVIDERS: Internal Medicine; PCP Family Medicine; Visit Provider Family Medicine
DX: N18.3 Chronic kidney disease, stage 3 (moderate) (principal); D63.1 Anemia in chronic kidney disease; Z45.2 Encounter for adjustment and management of vascular access device; D50.9 Iron deficiency anemia, unspecified; M60.9 Myositis, unspecified
CPT/HCPCS: 36591; 80053; 96365; 96366; 96372; 83540; 83550; 85025; J0881; J1459; J1756; J2930

== ENCOUNTER 2018-12-30 01:09 | Outpatient (RCR) | payer MEDICARE, SELFPAY ==
[2018-12-15 07:16] LABS: Absolute Basophil Count 0.05 k/cumm (0.0-0.2); Absolute Eosinophil Count 0.44 k/cumm (0.0-0.7); Absolute Lymphocyte Count 0.66 k/cumm (1.2-3.4); Absolute Monocyte Count 0.34 k/cumm (0.11-0.7); Basophils % 1.4; Eosinophils % 11.9; HCT 35.4 % (40.0-50.0); HGB 11.6 g/dL (13.5-17.5); Lymphocytes % 17.9; Mean Corp. HGB Concentration 32.8 g/dL (32.0-36.0); Mean Corpuscular Hemoglobin 32.2 pg (27.0-33.0); Mean Corpuscular Volume 98.3 fL (80-95); Mean Platelet Volume 11.8 fL (8.0-11.0); Monocytes % 9.2; Neutrophils % 59.6; RBC Distribution Width 15.7 % (11.8-14.1); White Blood Cell Count 3.69 k/cumm (4.4-10.8)
[2018-12-15] MEDS: Normal Saline Flush 10 ML SYR IVP (07:23)
[2018-12-15 07:31] LABS: ALT 21 U/L (12-78); AST 14 U/L (15-37); Alkaline Phosphatase 122 U/L (46-116); Anion Gap 10.8 mmol/L (3-11); BUN 69 mg/dL (7-18); Bilirubin, Total 0.5 mg/dL (0.2-1.0); CO2 23.2 mmol/L (21.0-32.0); Calcium 8.6 mg/dL (8.5-10.1); Chloride 106 mmol/L (98-107); Estimated GFR 32.38 (mL/min/1.73m2); Glucose 128 mg/dL (70-100); Potassium 4.1 mmol/L (3.5-5.1); Sodium 140 mmol/L (136-145); Total Protein 8.6 g/dL (6.4-8.2)
[2018-12-15 07:56] LABS: Diff Comment RBC Morph Reviewed; Platelet Count 63 x1000/uL (130-400)
[2018-12-15 07:57] LABS: Anisocytosis 1+; Polychromasia Present
[2018-12-15 08:12] LABS: Iron 74 ug/dL (50-175); Total Iron Binding Capacity 309 ug/dL (250-450); Transferrin Sat 24 % (20-55)
[2018-12-15] MEDS: Heparin 500 UNITS/5 ML SYRINGE IV (08:21)
[2018-12-29 07:41] LABS: Abs Immature Grans 0.01 k/cumm (0.0-0.09); Absolute Basophil Count 0.04 k/cumm (0.0-0.2); Absolute Eosinophil Count 0.62 k/cumm (0.0-0.7); Absolute Lymphocyte Count 0.64 k/cumm (1.2-3.4); Absolute Monocyte Count 0.41 k/cumm (0.11-0.7); Basophils % 1.1; Eosinophils % 16.7; HCT 36.6 % (40.0-50.0); HGB 11.9 g/dL (13.5-17.5); Immature Grans % 0.3; Lymphocytes % 17.3; Mean Corp. HGB Concentration 32.5 g/dL (32.0-36.0); Mean Corpuscular Hemoglobin 32.1 pg (27.0-33.0); Mean Corpuscular Volume 98.7 fL (80-95); Mean Platelet Volume 11.7 fL (8.0-11.0); Monocytes % 11.1; Neutrophils % 53.5; RBC 3.71 m/cumm (4.50-6.00); White Blood Cell Count 3.71 k/cumm (4.4-10.8)
[2018-12-29 07:42] VITALS: BP 123/75; PULSE 65; RESP 18; TEMP 37.1; O2SAT 98
[2018-12-29 07:44] LABS: Absolute Neutrophil Count 1.98 k/cumm (1.2-6.7)
[2018-12-29] MEDS: methylPREDNISolone SUCC 500 MG in Normal Saline 100 ML 432 MG IVPB (07:45)
[2018-12-29] MEDS: Normal Saline Flush 10 ML SYR IVP (07:49)
[2018-12-29 08:08] LABS: ALT 31 U/L (12-78); AST 22 U/L (15-37); Albumin 3.3 g/dL (3.4-5.0); Alkaline Phosphatase 127 U/L (46-116); BUN 61 mg/dL (7-18); Bilirubin, Total 0.4 mg/dL (0.2-1.0); Calcium 8.9 mg/dL (8.5-10.1); Chloride 105 mmol/L (98-107); Creatine Kinase 116 U/L (39-308); Estimated GFR 34.25 (mL/min/1.73m2); Glucose 130 mg/dL (70-100); Potassium 4.4 mmol/L (3.5-5.1); Sodium 138 mmol/L (136-145)
[2018-12-29 08:09] LABS: Platelet Count 66 x1000/uL (130-400)
[2018-12-29 08:10] VITALS: BP 119/71; PULSE 61; RESP 18; TEMP 36.4; O2SAT 98
[2018-12-29 08:10] LABS: Anisocytosis 1+; Diff Comment RBC Morph Reviewed; Macrocytosis 2+
[2018-12-29 08:11] LABS: Poikilocytes 1+
[2018-12-29 08:32] VITALS: BP 112/70; PULSE 59; RESP 18; TEMP 36.6; O2SAT 99
[2018-12-29 08:59] VITALS: BP 124/73; PULSE 60; RESP 18; TEMP 36.4; O2SAT 98
[2018-12-29 10:20] VITALS: BP 149/77; PULSE 56; RESP 18; TEMP 36.3; O2SAT 100
[2018-12-29 11:23] VITALS: BP 161/90; PULSE 57; RESP 18; TEMP 36.6; O2SAT 100
[2018-12-29] MEDS: Heparin 500 UNITS/5 ML SYRINGE IV (11:36)
[2018-12-30 07:12] VITALS: BP 151/69; PULSE 58; RESP 18; TEMP 37; O2SAT 96
[2018-12-30] MEDS: Normal Saline Flush 10 ML SYR IVP (07:12)
[2018-12-30] MEDS: Heparin 500 UNITS/5 ML SYRINGE IV (07:12)
[2018-12-30 07:40] VITALS: BP 119/84; PULSE 56; RESP 18; TEMP 36.4; O2SAT 99
[2018-12-30 07:55] VITALS: BP 156/78; PULSE 50; RESP 18; TEMP 36.6; O2SAT 99
[2018-12-30 08:05] VITALS: BP 169/76; PULSE 50; RESP 18; TEMP 36.6; O2SAT 99
[2018-12-30 08:37] VITALS: BP 166/76; PULSE 51; RESP 18; TEMP 36.6; O2SAT 99
[2018-12-30 09:00] VITALS: BP 157/76; PULSE 50; RESP 18; TEMP 36.4; O2SAT 98
== END 2019-01-07 23:59 | disposition home or self-care (01) ==
LOC: INF 01:09
PROVIDERS: Internal Medicine; PCP Family Medicine; Visit Provider Family Medicine
DX: M60.9 Myositis, unspecified (principal); D50.9 Iron deficiency anemia, unspecified; N18.3 Chronic kidney disease, stage 3 (moderate); D63.1 Anemia in chronic kidney disease
CPT/HCPCS: 36591; 80053; 82550; 96365; 96366; 96372; 96523; 83540; 83550; 85014; 85018; 85025; J0881; J1459; J1756; J2930

== ENCOUNTER 2019-01-27 01:55 | Outpatient (RCR) | payer MEDICARE, SELFPAY ==
[2019-01-12 07:44] LABS: Absolute Basophil Count 0.02 k/cumm (0.0-0.2); Absolute Eosinophil Count 0.35 k/cumm (0.0-0.7); Absolute Lymphocyte Count 0.68 k/cumm (1.2-3.4); Absolute Monocyte Count 0.33 k/cumm (0.11-0.7); Absolute Neutrophil Count 2.62 k/cumm (1.2-6.7); Basophils % 0.5; Eosinophils % 8.8; HCT 37.1 % (40.0-50.0); HGB 11.8 g/dL (13.5-17.5); Mean Corp. HGB Concentration 31.8 g/dL (32.0-36.0); Mean Corpuscular Hemoglobin 31.5 pg (27.0-33.0); Mean Corpuscular Volume 98.9 fL (80-95); Mean Platelet Volume 12.4 fL (8.0-11.0); Monocytes % 8.3; Neutrophils % 65.4; RBC 3.75 m/cumm (4.50-6.00); RBC Distribution Width 16.1 % (11.8-14.1)
[2019-01-12 07:59] LABS: ALT 28 U/L (12-78); AST 19 U/L (15-37); Albumin 3.1 g/dL (3.4-5.0); Alkaline Phosphatase 118 U/L (46-116); Anion Gap 11.1 mmol/L (3-11); BUN 67 mg/dL (7-18); Bilirubin, Total 0.4 mg/dL (0.2-1.0); CO2 20.9 mmol/L (21.0-32.0); CREATININE 1.94 mg/dL (0.70-1.30); Calcium 8.9 mg/dL (8.5-10.1); Chloride 105 mmol/L (98-107); Estimated GFR 35.48 (mL/min/1.73m2); Glucose 269 mg/dL (70-100); Potassium 4.9 mmol/L (3.5-5.1); Sodium 137 mmol/L (136-145); Total Protein 8.5 g/dL (6.4-8.2)
[2019-01-12 08:12] LABS: Platelet Count 59 x1000/uL (130-400)
[2019-01-12] MEDS: Normal Saline Flush 10 ML SYR IVP (08:59)
[2019-01-12] MEDS: Heparin 500 UNITS/5 ML SYRINGE IV (09:00)
[2019-01-12 09:11] LABS: Iron 67 ug/dL (50-175); Total Iron Binding Capacity 281 ug/dL (250-450); Transferrin Sat 24 % (20-55)
[2019-01-26] MEDS: Normal Saline Flush 10 ML SYR IVP (07:00)
[2019-01-26 07:14] VITALS: BP 123/78; PULSE 69; RESP 18; TEMP 37.1; O2SAT 98
[2019-01-26] MEDS: Heparin 500 UNITS/5 ML SYRINGE IV (07:24)
[2019-01-26 07:37] LABS: Creatine Kinase 88 U/L (39-308)
[2019-01-26] MEDS: methylPREDNISolone SUCC 500 MG in Normal Saline 100 ML 432 MG IVPB (07:43)
[2019-01-26 08:11] VITALS: BP 133/73; PULSE 61; RESP 18; TEMP 36.7; O2SAT 99
[2019-01-26 08:30] VITALS: BP 132/73; PULSE 60; RESP 18; TEMP 36.7; O2SAT 98
[2019-01-26 08:45] VITALS: BP 135/81; PULSE 59; RESP 18; TEMP 36.5; O2SAT 99
[2019-01-26 09:11] VITALS: BP 137/82; PULSE 57; RESP 18; TEMP 36.7; O2SAT 97
[2019-01-26 09:58] VITALS: BP 178/82; PULSE 58; TEMP 36.6; O2SAT 100
[2019-01-26 12:27] LABS: Abs Immature Grans 0.01 k/cumm (0.0-0.09); Absolute Basophil Count 0.03 k/cumm (0.0-0.2); Absolute Eosinophil Count 0.34 k/cumm (0.0-0.7); Absolute Lymphocyte Count 0.56 k/cumm (1.2-3.4); Absolute Monocyte Count 0.42 k/cumm (0.11-0.7); Absolute Neutrophil Count 1.58 k/cumm (1.2-6.7); Eosinophils % 11.6; HCT 35.5 % (40.0-50.0); HGB 11.5 g/dL (13.5-17.5); Immature Grans % 0.3; Mean Corp. HGB Concentration 32.4 g/dL (32.0-36.0); Mean Corpuscular Hemoglobin 32.5 pg (27.0-33.0); Mean Corpuscular Volume 100.3 fL (80-95); Mean Platelet Volume 12.3 fL (8.0-11.0); Monocytes % 14.3; Neutrophils % 53.8; RBC 3.54 m/cumm (4.50-6.00); RBC Distribution Width 16.2 % (11.8-14.1); White Blood Cell Count 2.94 k/cumm (4.4-10.8)
[2019-01-26 12:59] LABS: Diff Comment Diff Reviewed; Platelet Count 71 x1000/uL (130-400); RBC Morphology Normal
[2019-01-27 07:00] VITALS: BP 145/79; PULSE 53; RESP 18; TEMP 37.2; O2SAT 98
[2019-01-27 07:32] VITALS: BP 156/80; PULSE 52; RESP 18; TEMP 37.3; O2SAT 98
[2019-01-27 07:48] VITALS: BP 168/81; PULSE 54; RESP 18; TEMP 36.3; O2SAT 98
[2019-01-27 08:09] VITALS: BP 174/78; PULSE 50; RESP 18; TEMP 36.3; O2SAT 98
[2019-01-27 08:12] LABS: CREATININE 1.82 mg/dL (0.70-1.30); Estimated GFR 38.19 (mL/min/1.73m2)
[2019-01-27 08:43] VITALS: BP 123/73; PULSE 64; RESP 18; TEMP 36.5; O2SAT 98
[2019-01-27] MEDS: Heparin 500 UNITS/5 ML SYRINGE IV (09:33)
[2019-01-27] MEDS: Normal Saline Flush 10 ML SYR IVP (09:33)
== END 2019-02-07 23:59 | disposition home or self-care (01) ==
LOC: INF 01:55
PROVIDERS: PCP Family Medicine; Visit Provider Family Medicine
DX: M60.9 Myositis, unspecified (principal); D63.1 Anemia in chronic kidney disease; N18.3 Chronic kidney disease, stage 3 (moderate); Z45.2 Encounter for adjustment and management of vascular access device; D50.9 Iron deficiency anemia, unspecified
CPT/HCPCS: 36591; 80053; 82550; 96365; 96366; 96372; 82565; 83540; 83550; 85025; J0881; J1459; J2930

== ENCOUNTER 2019-02-24 01:07 | Outpatient (RCR) | payer MEDICARE, SELFPAY ==
[2019-02-10 07:36] LABS: HCT 35.4 % (40.0-50.0); HGB 11.1 g/dL (13.5-17.5)
[2019-02-10 07:39] LABS: Estimated GFR 38.68 (mL/min/1.73m2)
[2019-02-10] MEDS: Normal Saline Flush 10 ML SYR IVP (08:13)
[2019-02-10 09:34] LABS: Iron 63 ug/dL (50-175)
[2019-02-10 09:35] LABS: Total Iron Binding Capacity 298 ug/dL (250-450); Transferrin Sat 21 % (20-55)
[2019-02-10] MEDS: Heparin 500 UNITS/5 ML SYRINGE IV (09:50)
[2019-02-23] VITALS (9 sets, daily range): BP systolic 156–191; BP diastolic 73–105; PULSE 55–63; RESP 18–19; TEMP 35.9–37; O2SAT 99–100
[2019-02-23 07:35] LABS: CREATININE 1.41 mg/dL (0.70-1.30); Estimated GFR 51.27 (mL/min/1.73m2)
[2019-02-23] MEDS: methylPREDNISolone SUCC 500 MG in Normal Saline 100 ML 400 MG IVPB (07:38)
[2019-02-23 07:39] LABS: Abs Immature Grans 0.01 k/cumm (0.0-0.09); Absolute Basophil Count 0.03 k/cumm (0.0-0.2); Absolute Eosinophil Count 0.23 k/cumm (0.0-0.7); Absolute Lymphocyte Count 0.48 k/cumm (1.2-3.4); Absolute Monocyte Count 0.28 k/cumm (0.11-0.7); Absolute Neutrophil Count 1.65 k/cumm (1.2-6.7); Basophils % 1.1; Eosinophils % 8.6; HCT 35.3 % (40.0-50.0); Immature Grans % 0.4; Lymphocytes % 17.9; Mean Corp. HGB Concentration 31.2 g/dL (32.0-36.0); Mean Corpuscular Hemoglobin 31.5 pg (27.0-33.0); Mean Corpuscular Volume 101.1 fL (80-95); Mean Platelet Volume 11.2 fL (8.0-11.0); Monocytes % 10.4; Neutrophils % 61.6; RBC 3.49 m/cumm (4.50-6.00); RBC Distribution Width 15.8 % (11.8-14.1); White Blood Cell Count 2.68 k/cumm (4.4-10.8)
[2019-02-23] MEDS: Normal Saline Flush 10 ML SYR IVP (07:39)
[2019-02-23 07:56] LABS: Creatine Kinase 88 U/L (39-308)
[2019-02-23 08:02] LABS: Diff Comment RBC Morph Reviewed; Hypochromasia 1+; Platelet Count 67 x1000/uL (130-400)
[2019-02-23] MEDS: Heparin 500 UNITS/5 ML SYRINGE IV (08:16)
[2019-02-24] VITALS (7 sets, daily range): BP systolic 166–191; BP diastolic 62–80; PULSE 42–52; TEMP 36.3–36.8; O2SAT 98–100
[2019-02-24] MEDS: Normal Saline Flush 10 ML SYR IVP (07:14)
[2019-02-24] MEDS: Heparin 500 UNITS/5 ML SYRINGE IV (07:15)
== END 2019-03-09 23:59 | disposition home or self-care (01) ==
LOC: INF 01:07
PROVIDERS: PCP Family Medicine; Visit Provider Family Medicine
DX: M60.9 Myositis, unspecified (principal); D50.9 Iron deficiency anemia, unspecified; N18.3 Chronic kidney disease, stage 3 (moderate); D63.1 Anemia in chronic kidney disease; Z45.2 Encounter for adjustment and management of vascular access device
CPT/HCPCS: 36591; 82550; 96365; 96366; 96372; 96523; 82565; 83540; 83550; 85014; 85018; 85025; J0881; J1459; J2930

== ENCOUNTER 2019-03-09 01:42 | Outpatient (RCR) | payer MEDICARE, SELFPAY ==
[2019-03-09] MEDS: Heparin 500 UNITS/5 ML SYRINGE IV (07:04)
[2019-03-09] MEDS: Normal Saline Flush 10 ML SYR IVP (07:04)
[2019-03-09 07:17] LABS: Abs Immature Grans 0.01 k/cumm (0.0-0.09); Absolute Basophil Count 0.04 k/cumm (0.0-0.2); Absolute Eosinophil Count 0.36 k/cumm (0.0-0.7); Absolute Lymphocyte Count 0.58 k/cumm (1.2-3.4); Absolute Monocyte Count 0.47 k/cumm (0.11-0.7); Absolute Neutrophil Count 3.05 k/cumm (1.2-6.7); Basophils % 0.9; HCT 35.3 % (40.0-50.0); HGB 11.3 g/dL (13.5-17.5); Immature Grans % 0.2; Lymphocytes % 12.9; Mean Corpuscular Hemoglobin 32.1 pg (27.0-33.0); Mean Corpuscular Volume 100.3 fL (80-95); Mean Platelet Volume 11.2 fL (8.0-11.0); Monocytes % 10.4; Neutrophils % 67.6; RBC 3.52 m/cumm (4.50-6.00); RBC Distribution Width 15.1 % (11.8-14.1); White Blood Cell Count 4.51 k/cumm (4.4-10.8)
[2019-03-09 07:42] LABS: Diff Comment RBC Morph Reviewed; Macrocytosis 2+; Platelet Count 78 x1000/uL (130-400)
[2019-03-09 07:43] LABS: ALT 26 U/L (16-63); AST 25 U/L (15-37); Alkaline Phosphatase 120 U/L (46-116); Anion Gap 10.9 mmol/L (3-11); BUN 41 mg/dL (7-18); Bilirubin, Total 0.5 mg/dL (0.2-1.0); CO2 25.1 mmol/L (21.0-32.0); CREATININE 1.67 mg/dL (0.70-1.30); Calcium 8.6 mg/dL (8.5-10.1); Chloride 105 mmol/L (98-107); Estimated GFR 42.18 (mL/min/1.73m2); Ferritin 503 ng/mL (8-388); Glucose 173 mg/dL (70-100); Potassium 4.1 mmol/L (3.5-5.1); Sodium 141 mmol/L (136-145); Total Protein 8.4 g/dL (6.4-8.2)
[2019-03-09 08:16] LABS: Iron 53 ug/dL (50-175); Total Iron Binding Capacity 290 ug/dL (250-450); Transferrin Sat 18 % (20-55)
== END 2019-03-09 23:59 | disposition home or self-care (01) ==
LOC: INF 01:42
PROVIDERS: Nurse Practitioner Adult Health; PCP Family Medicine; Visit Provider Family Medicine
DX: D50.9 Iron deficiency anemia, unspecified (principal); N18.3 Chronic kidney disease, stage 3 (moderate); D63.1 Anemia in chronic kidney disease
CPT/HCPCS: 36591; 80053; 96365; 96366; 96372; 82728; 83540; 83550; 85025; J0881; J1756

== ENCOUNTER 2019-04-06 01:59 | Outpatient (RCR) | payer MEDICARE, SELFPAY ==
[2019-03-23] VITALS (10 sets, daily range): BP systolic 144–178; BP diastolic 73–95; PULSE 63–68; RESP 18–19; TEMP 36.7–37.1; O2SAT 94–99
[2019-03-23 07:23] LABS: Abs Immature Grans 0.01 k/cumm (0.0-0.09); Absolute Basophil Count 0.03 k/cumm (0.0-0.2); Absolute Eosinophil Count 0.33 k/cumm (0.0-0.7); Absolute Monocyte Count 0.44 k/cumm (0.11-0.7); Absolute Neutrophil Count 2.03 k/cumm (1.2-6.7); Basophils % 0.9; Eosinophils % 9.9; HCT 36.8 % (40.0-50.0); HGB 11.9 g/dL (13.5-17.5); Immature Grans % 0.3; Mean Corp. HGB Concentration 32.3 g/dL (32.0-36.0); Mean Corpuscular Hemoglobin 32.2 pg (27.0-33.0); Mean Corpuscular Volume 99.5 fL (80-95); Monocytes % 13.2; Neutrophils % 60.7; RBC Distribution Width 15.1 % (11.8-14.1); White Blood Cell Count 3.34 k/cumm (4.4-10.8)
[2019-03-23 07:30] LABS: CREATININE 1.54 mg/dL (0.70-1.30); Creatine Kinase 86 U/L (39-308); Estimated GFR 46.31 (mL/min/1.73m2)
[2019-03-23 07:33] LABS: Platelet Count 73 x1000/uL (130-400)
[2019-03-23 07:34] LABS: Diff Comment RBC Morph Reviewed; RBC Morphology Normal
[2019-03-23] MEDS: methylPREDNISolone SUCC 500 MG in Normal Saline 100 ML 432 MG IVPB (07:35)
[2019-03-23] MEDS: Normal Saline Flush 10 ML SYR IVP (07:38)
[2019-03-23] MEDS: Heparin 500 UNITS/5 ML SYRINGE (12:25)
[2019-03-24] VITALS (10 sets, daily range): BP systolic 155–184; BP diastolic 74–83; PULSE 51–68; RESP 18–19; TEMP 36.6–37; O2SAT 97–99
[2019-03-24] MEDS: Normal Saline Flush 10 ML SYR IVP (07:17)
[2019-03-24] MEDS: Heparin 500 UNITS/5 ML SYRINGE ×2 (07:17→10:40)
[2019-04-06 07:47] LABS: Absolute Basophil Count 0.05 k/cumm (0.0-0.2); Absolute Eosinophil Count 0.36 k/cumm (0.0-0.7); Absolute Lymphocyte Count 0.65 k/cumm (1.2-3.4); Absolute Monocyte Count 0.34 k/cumm (0.11-0.7); Absolute Neutrophil Count 2.79 k/cumm (1.2-6.7); Basophils % 1.2; Eosinophils % 8.6; HCT 37.6 % (40.0-50.0); HGB 11.7 g/dL (13.5-17.5); Lymphocytes % 15.5; Mean Corp. HGB Concentration 31.1 g/dL (32.0-36.0); Mean Corpuscular Hemoglobin 31.2 pg (27.0-33.0); Mean Corpuscular Volume 100.3 fL (80-95); Mean Platelet Volume 11.5 fL (8.0-11.0); Monocytes % 8.1; Neutrophils % 66.6; RBC 3.75 m/cumm (4.50-6.00); RBC Distribution Width 14.8 % (11.8-14.1); White Blood Cell Count 4.19 k/cumm (4.4-10.8)
[2019-04-06 07:49] LABS: CREATININE 1.63 mg/dL (0.70-1.30); Estimated GFR 43.23 (mL/min/1.73m2)
[2019-04-06 08:08] LABS: Iron 73 ug/dL (50-175); Total Iron Binding Capacity 303 ug/dL (250-450); Transferrin Sat 24 % (20-55)
[2019-04-06 08:15] LABS: Diff Comment RBC Morph Reviewed; Platelet Count 64 x1000/uL (130-400); RBC Morphology Normal
[2019-04-06] MEDS: Normal Saline Flush 10 ML SYR IVP (08:26)
[2019-04-06] MEDS: Heparin 500 UNITS/5 ML SYRINGE (08:27)
[2019-04-07 10:51] LABS: Hepatitis C Ab w Rflx HCV PCR Negative (NEGAT)
== END 2019-04-09 23:59 | disposition home or self-care (01) ==
LOC: INF 01:59
PROVIDERS: Nurse Practitioner Adult Health; PCP Family Medicine; Visit Provider Family Medicine
DX: M60.9 Myositis, unspecified (principal); N18.3 Chronic kidney disease, stage 3 (moderate); D63.1 Anemia in chronic kidney disease; D50.9 Iron deficiency anemia, unspecified; Z45.2 Encounter for adjustment and management of vascular access device
CPT/HCPCS: 36591; 82550; 86803; 96365; 96366; 96372; 96523; 82565; 83540; 83550; 85025; 87522; J0881; J1459; J2930

== ENCOUNTER 2019-05-04 02:57 | Outpatient (RCR) | payer MEDICARE, SELFPAY ==
[2019-04-20] VITALS (9 sets, daily range): BP systolic 129–166; BP diastolic 75–82; PULSE 61–73; RESP 17–19; TEMP 37–37.1; O2SAT 98–99
[2019-04-20 07:20] LABS: Absolute Basophil Count 0.04 k/cumm (0.0-0.2); Absolute Eosinophil Count 0.38 k/cumm (0.0-0.7); Absolute Lymphocyte Count 0.59 k/cumm (1.2-3.4); Absolute Monocyte Count 0.29 k/cumm (0.11-0.7); Absolute Neutrophil Count 1.67 k/cumm (1.2-6.7); Basophils % 1.3; Eosinophils % 12.8; HCT 36.9 % (40.0-50.0); HGB 11.7 g/dL (13.5-17.5); Lymphocytes % 19.9; Mean Corp. HGB Concentration 31.7 g/dL (32.0-36.0); Mean Corpuscular Hemoglobin 31.3 pg (27.0-33.0); Mean Corpuscular Volume 98.7 fL (80-95); Mean Platelet Volume 10.5 fL (8.0-11.0); Monocytes % 9.8; Neutrophils % 56.2; RBC 3.74 m/cumm (4.50-6.00); RBC Distribution Width 15.2 % (11.8-14.1); White Blood Cell Count 2.97 k/cumm (4.4-10.8)
[2019-04-20] MEDS: methylPREDNISolone SUCC 500 MG in Normal Saline 100 ML 432 MG IVPB (07:29)
[2019-04-20 07:31] LABS: CREATININE 1.67 mg/dL (0.70-1.30); Creatine Kinase 82 U/L (39-308); Estimated GFR 42.03 (mL/min/1.73m2)
[2019-04-20 07:33] LABS: Diff Comment PLT Morph Reviewed; Platelet Count 73 x1000/uL (130-400); Polychromasia Present
[2019-04-20] MEDS: Normal Saline Flush 10 ML SYR IVP (07:34)
[2019-04-20 08:22] LABS: Iron 56 ug/dL (50-175); Total Iron Binding Capacity 304 ug/dL (250-450); Transferrin Sat 18 % (20-55)
[2019-04-21] VITALS (9 sets, daily range): BP systolic 157–185; BP diastolic 70–79; PULSE 54–63; RESP 18–19; TEMP 36.6–37.1; O2SAT 97–99
[2019-04-21] MEDS: Normal Saline Flush 10 ML SYR IVP (07:25)
[2019-04-21] MEDS: Heparin 500 UNITS/5 ML SYRINGE IV (07:29)
[2019-05-04] MEDS: Normal Saline Flush 10 ML SYR IVP (07:16)
[2019-05-04] MEDS: Heparin 500 UNITS/5 ML SYRINGE IV (07:17)
[2019-05-04 07:42] LABS: Absolute Basophil Count 0.04 k/cumm (0.0-0.2); Absolute Lymphocyte Count 0.56 k/cumm (1.2-3.4); Absolute Neutrophil Count 2.82 k/cumm (1.2-6.7); Basophils % 0.9; CREATININE 1.76 mg/dL (0.70-1.30); Eosinophils % 9.5; Estimated GFR 39.56 (mL/min/1.73m2); HCT 37.8 % (40.0-50.0); HGB 12.1 g/dL (13.5-17.5); Lymphocytes % 13.3; Mean Corpuscular Hemoglobin 31.5 pg (27.0-33.0); Mean Corpuscular Volume 98.4 fL (80-95); Monocytes % 9.5; Neutrophils % 66.8; RBC 3.84 m/cumm (4.50-6.00); RBC Distribution Width 15.4 % (11.8-14.1); White Blood Cell Count 4.22 k/cumm (4.4-10.8)
[2019-05-04 08:03] LABS: Anisocytosis 1+; Diff Comment Diff Reviewed; Platelet Count 70 x1000/uL (130-400)
[2019-05-04 08:22] LABS: Iron 58 ug/dL (65-175); Total Iron Binding Capacity 329 ug/dL (250-450); Transferrin Sat 18 % (20-55)
[2019-05-04] MEDS: IRON SUCROSE COMPLEX 300 MG in Normal Saline 250 ML 176.667 MG IVPB (08:45)
== END 2019-05-09 23:59 | disposition home or self-care (01) ==
LOC: INF 02:57
PROVIDERS: Nurse Practitioner Adult Health; PCP Family Medicine; Visit Provider Family Medicine
DX: M60.9 Myositis, unspecified (principal); N18.3 Chronic kidney disease, stage 3 (moderate); D63.1 Anemia in chronic kidney disease
CPT/HCPCS: 36591; 82550; 96365; 96366; 96372; 82565; 83540; 83550; 85025; J0881; J1459; J1756; J2930

== ENCOUNTER 2019-06-01 01:16 | Outpatient (RCR) | payer MEDICARE, SELFPAY ==
[2019-05-18] MEDS: methylPREDNISolone SUCC 500 MG in Normal Saline 100 ML 200 MG IVPB (07:40)
[2019-05-18] MEDS: Normal Saline Flush 10 ML SYR IVP (07:47)
[2019-05-18] MEDS: Heparin 500 UNITS/5 ML SYRINGE IV (07:48)
[2019-05-18 07:50] VITALS: BP 135/74; PULSE 72; RESP 19; TEMP 37.1; O2SAT 98
[2019-05-18 08:16] VITALS: BP 142/74; PULSE 64; RESP 19; TEMP 36.8; O2SAT 98
[2019-05-18 08:31] VITALS: BP 127/73; PULSE 63; RESP 19; TEMP 37; O2SAT 99
[2019-05-18 08:44] LABS: Absolute Basophil Count 0.04 k/cumm (0.0-0.2); Absolute Eosinophil Count 0.32 k/cumm (0.0-0.7); Absolute Lymphocyte Count 0.71 k/cumm (1.2-3.4); Absolute Monocyte Count 0.49 k/cumm (0.11-0.7); Absolute Neutrophil Count 1.05 k/cumm (1.2-6.7); Basophils % 1.5; Eosinophils % 12.3; HCT 34.7 % (40.0-50.0); HGB 10.9 g/dL (13.5-17.5); Lymphocytes % 27.2; Mean Corp. HGB Concentration 31.4 g/dL (32.0-36.0); Mean Corpuscular Hemoglobin 30.7 pg (27.0-33.0); Mean Corpuscular Volume 97.7 fL (80-95); Mean Platelet Volume 10.8 fL (8.0-11.0); Monocytes % 18.8; Neutrophils % 40.2; Platelet Count 73 x1000/uL (130-400); RBC 3.55 m/cumm (4.50-6.00); RBC Distribution Width 15.2 % (11.8-14.1); White Blood Cell Count 2.61 k/cumm (4.4-10.8)
[2019-05-18 08:55] LABS: Creatine Kinase 80 U/L (39-308); Estimated GFR 36.22 (mL/min/1.73m2)
[2019-05-18 10:01] VITALS: BP 166/77; PULSE 61; RESP 19; TEMP 35.9; O2SAT 98
[2019-05-19 07:00] VITALS: BP 159/77; PULSE 56; RESP 19; TEMP 37.1; O2SAT 98
[2019-05-19 07:24] VITALS: BP 161/77; PULSE 55; RESP 19; TEMP 37.1; O2SAT 98
[2019-05-19] MEDS: Heparin 500 UNITS/5 ML SYRINGE IV (07:30)
[2019-05-19] MEDS: Normal Saline Flush 10 ML SYR IVP (07:30)
[2019-05-19 07:39] VITALS: BP 181/69; PULSE 57; RESP 18; TEMP 36.7; O2SAT 96
[2019-05-19 07:55] VITALS: BP 154/75; PULSE 52; RESP 19; TEMP 37; O2SAT 96
[2019-05-19 08:25] VITALS: BP 148/73; PULSE 53; RESP 18; TEMP 36.7; O2SAT 98
[2019-06-01 07:12] LABS: Absolute Basophil Count 0.06 k/cumm (0.0-0.2); Absolute Eosinophil Count 0.31 k/cumm (0.0-0.7); Absolute Lymphocyte Count 0.64 k/cumm (1.2-3.4); Absolute Monocyte Count 0.39 k/cumm (0.11-0.7); Absolute Neutrophil Count 2.52 k/cumm (1.2-6.7); Basophils % 1.5; Eosinophils % 7.9; HCT 34.9 % (40.0-50.0); HGB 11.2 g/dL (13.5-17.5); Lymphocytes % 16.3; Mean Corp. HGB Concentration 32.1 g/dL (32.0-36.0); Mean Corpuscular Hemoglobin 31.5 pg (27.0-33.0); Mean Platelet Volume 11.6 fL (8.0-11.0); Monocytes % 9.9; Neutrophils % 64.4; RBC 3.56 m/cumm (4.50-6.00); RBC Distribution Width 16.1 % (11.8-14.1); White Blood Cell Count 3.92 k/cumm (4.4-10.8)
[2019-06-01 07:17] LABS: CREATININE 1.65 mg/dL (0.70-1.30); Estimated GFR 42.62 (mL/min/1.73m2)
[2019-06-01 07:32] LABS: Anisocytosis 1+; Diff Comment RBC Morph Reviewed; Platelet Count 57 x1000/uL (130-400)
[2019-06-01 08:03] LABS: Iron 66 ug/dL (65-175); Total Iron Binding Capacity 284 ug/dL (250-450); Transferrin Sat 23 % (20-55)
[2019-06-01] MEDS: Heparin 500 UNITS/5 ML SYRINGE IV (08:56)
[2019-06-01] MEDS: Normal Saline Flush 10 ML SYR IVP (08:56)
== END 2019-06-09 23:59 | disposition home or self-care (01) ==
LOC: INF 01:16
PROVIDERS: Nurse Practitioner Adult Health; PCP Family Medicine; Visit Provider Family Medicine
DX: M60.9 Myositis, unspecified (principal); N18.3 Chronic kidney disease, stage 3 (moderate); D63.1 Anemia in chronic kidney disease; Z45.2 Encounter for adjustment and management of vascular access device
CPT/HCPCS: 36591; 82550; 96365; 96366; 96372; 82565; 83540; 83550; 85025; J0881; J1459; J2930

== ENCOUNTER 2019-06-29 01:02 | Outpatient (RCR) | payer MEDICARE, SELFPAY ==
[2019-06-15 07:24] LABS: Abs Immature Grans 0.01 k/cumm (0.0-0.09); Absolute Basophil Count 0.04 k/cumm (0.0-0.2); Absolute Lymphocyte Count 0.62 k/cumm (1.2-3.4); Absolute Monocyte Count 0.34 k/cumm (0.11-0.7); Absolute Neutrophil Count 1.99 k/cumm (1.2-6.7); Basophils % 1.1; Eosinophils % 14.3; HGB 11.2 g/dL (13.5-17.5); Immature Grans % 0.3 %; Lymphocytes % 17.7; Mean Corpuscular Hemoglobin 31.5 pg (27.0-33.0); Mean Corpuscular Volume 98.6 fL (80-95); Mean Platelet Volume 11.1 fL (8.0-11.0); Monocytes % 9.7; Neutrophils % 56.9; RBC 3.55 m/cumm (4.50-6.00); RBC Distribution Width 16.1 % (11.8-14.1)
[2019-06-15 07:35] LABS: CREATININE 1.56 mg/dL (0.70-1.30); Creatine Kinase 135 U/L (39-308); Estimated GFR 45.47 (mL/min/1.73m2)
[2019-06-15 07:48] VITALS: BP 135/80; PULSE 63; RESP 18; TEMP 35.8; O2SAT 99
[2019-06-15 07:50] LABS: Platelet Count 76 x1000/uL (130-400)
[2019-06-15] MEDS: methylPREDNISolone SUCC 500 MG in Normal Saline 100 ML 432 MG IVPB (07:50)
[2019-06-15 07:51] LABS: Anisocytosis 1+; Diff Comment Diff Reviewed; Polychromasia Present
[2019-06-15 08:21] VITALS: BP 131/75; PULSE 64; RESP 18; TEMP 35.6; O2SAT 98
[2019-06-15] MEDS: Heparin 500 UNITS/5 ML SYRINGE IV (08:23)
[2019-06-15] MEDS: Normal Saline Flush 10 ML SYR IVP (08:23)
[2019-06-15 08:36] VITALS: BP 136/73; PULSE 64; RESP 19; TEMP 35.6; O2SAT 96
[2019-06-15 09:07] VITALS: BP 146/69; PULSE 64; RESP 18; TEMP 36.6; O2SAT 99
[2019-06-15 09:37] VITALS: BP 154/81; PULSE 64; RESP 18; TEMP 36.6; O2SAT 99
[2019-06-15 10:07] VITALS: BP 157/94; PULSE 65; RESP 19; TEMP 35.8; O2SAT 99
[2019-06-16 07:37] VITALS: BP 127/75; PULSE 63; RESP 19; TEMP 35.7; O2SAT 95
[2019-06-16 07:43] VITALS: BP 143/70; PULSE 67; RESP 19; TEMP 35.7; O2SAT 98
[2019-06-16] MEDS: Normal Saline Flush 10 ML SYR IVP (07:44)
[2019-06-16] MEDS: Heparin 500 UNITS/5 ML SYRINGE IV (07:44)
[2019-06-16 07:58] VITALS: BP 133/69; PULSE 64; RESP 18; TEMP 35.7; O2SAT 93
[2019-06-16 08:28] VITALS: BP 151/67; PULSE 63; RESP 19; TEMP 35.3; O2SAT 97
[2019-06-16 08:58] VITALS: BP 163/73; PULSE 65; RESP 18; TEMP 35.4; O2SAT 98
[2019-06-16 09:38] VITALS: BP 155/74; PULSE 54; RESP 18; TEMP 35.5; O2SAT 99
[2019-06-29 07:28] LABS: Abs Immature Grans 0.01 k/cumm (0.0-0.09); Absolute Basophil Count 0.03 k/cumm (0.0-0.2); Absolute Eosinophil Count 0.31 k/cumm (0.0-0.7); Absolute Lymphocyte Count 0.65 k/cumm (1.2-3.4); Absolute Monocyte Count 0.39 k/cumm (0.11-0.7); Absolute Neutrophil Count 2.84 k/cumm (1.2-6.7); Basophils % 0.7; Eosinophils % 7.3; HCT 35.3 % (40.0-50.0); HGB 11.3 g/dL (13.5-17.5); Immature Grans % 0.2 %; Lymphocytes % 15.4; Mean Corpuscular Hemoglobin 31.3 pg (27.0-33.0); Mean Corpuscular Volume 97.8 fL (80-95); Mean Platelet Volume 11.4 fL (8.0-11.0); Monocytes % 9.2; Neutrophils % 67.2; RBC 3.61 m/cumm (4.50-6.00); RBC Distribution Width 16.7 % (11.8-14.1); White Blood Cell Count 4.23 k/cumm (4.4-10.8)
[2019-06-29 07:35] LABS: CREATININE 1.69 mg/dL (0.70-1.30); Estimated GFR 41.46 (mL/min/1.73m2)
[2019-06-29 07:47] LABS: Anisocytosis 1+; Diff Comment PLT Morph Reviewed; Platelet Count 59 x1000/uL (130-400); Polychromasia Present
[2019-06-29 08:17] LABS: Iron 84 ug/dL (65-175); Total Iron Binding Capacity 310 ug/dL (250-450); Transferrin Sat 27 % (20-55)
[2019-06-29] MEDS: Normal Saline Flush 10 ML SYR IVP (08:25)
[2019-06-29] MEDS: Heparin 500 UNITS/5 ML SYRINGE IV (08:25)
== END 2019-07-10 23:59 | disposition home or self-care (01) ==
LOC: INF 01:02
PROVIDERS: Nurse Practitioner Adult Health; PCP Family Medicine; Visit Provider Family Medicine
DX: M60.9 Myositis, unspecified (principal); N18.3 Chronic kidney disease, stage 3 (moderate); D63.1 Anemia in chronic kidney disease
CPT/HCPCS: 36591; 82550; 96365; 96366; 96372; 82565; 83540; 83550; 85025; J0881; J1459; J2930

== ENCOUNTER 2019-07-27 02:57 | Outpatient (RCR) | payer MEDICARE, SELFPAY ==
[2019-07-13 07:15] LABS: Absolute Basophil Count 0.02 k/cumm (0.0-0.2); Absolute Eosinophil Count 0.35 k/cumm (0.0-0.7); Absolute Lymphocyte Count 0.47 k/cumm (1.2-3.4); Absolute Neutrophil Count 2.21 k/cumm (1.2-6.7); Basophils % 0.6; Eosinophils % 9.9; HCT 35.4 % (40.0-50.0); HGB 11.2 g/dL (13.5-17.5); Lymphocytes % 13.2; Mean Corp. HGB Concentration 31.6 g/dL (32.0-36.0); Mean Corpuscular Hemoglobin 31.5 pg (27.0-33.0); Mean Corpuscular Volume 99.4 fL (80-95); Mean Platelet Volume 11.3 fL (8.0-11.0); Monocytes % 14.1; Neutrophils % 62.2; RBC 3.56 m/cumm (4.50-6.00); RBC Distribution Width 16.2 % (11.8-14.1); White Blood Cell Count 3.55 k/cumm (4.4-10.8)
[2019-07-13 07:27] LABS: CREATININE 1.54 mg/dL (0.70-1.30); Creatine Kinase 93 U/L (39-308); Estimated GFR 46.16 (mL/min/1.73m2)
[2019-07-13 07:42] LABS: Diff Comment Diff Reviewed; Platelet Count 70 x1000/uL (130-400)
[2019-07-13 07:43] LABS: Anisocytosis 1+; Hypochromasia 2+; Poikilocytes 2+; Polychromasia Present
[2019-07-13] MEDS: Normal Saline Flush 10 ML SYR IVP (07:52)
[2019-07-13] MEDS: methylPREDNISolone SUCC 500 MG in Normal Saline 100 ML 432 MG IVPB (07:52)
[2019-07-13] MEDS: Heparin 500 UNITS/5 ML SYRINGE IV (07:53)
[2019-07-13 08:15] VITALS: BP 158/83; PULSE 66; RESP 18; TEMP 37.1; O2SAT 99
[2019-07-13 08:40] VITALS: BP 159/83; PULSE 68; RESP 19; TEMP 37; O2SAT 98
[2019-07-13 08:55] VITALS: BP 156/83; PULSE 66; RESP 18; TEMP 37; O2SAT 98
[2019-07-13 09:10] VITALS: BP 164/90; PULSE 66; RESP 18; TEMP 37.1; O2SAT 98
[2019-07-13 09:40] VITALS: BP 140/80; PULSE 70; RESP 19; TEMP 37; O2SAT 98
[2019-07-13 10:10] VITALS: BP 139/82; PULSE 80; RESP 18; TEMP 37; O2SAT 99
[2019-07-14] MEDS: Heparin 500 UNITS/5 ML SYRINGE IV (07:28)
[2019-07-14] MEDS: Normal Saline Flush 10 ML SYR IVP (07:28)
[2019-07-14 07:42] VITALS: BP 148/73; PULSE 60; RESP 16; TEMP 36.3; O2SAT 97
[2019-07-14 07:55] VITALS: BP 162/78; PULSE 60; RESP 18; TEMP 35.7; O2SAT 97
[2019-07-14 08:10] VITALS: BP 163/74; PULSE 63; RESP 18; TEMP 36.3; O2SAT 96
[2019-07-14 08:43] VITALS: BP 148/74; PULSE 63; RESP 18; TEMP 36.1; O2SAT 98
[2019-07-14 09:38] VITALS: BP 155/79; PULSE 58; RESP 16; TEMP 35.6; O2SAT 99
[2019-07-14 11:02] VITALS: BP 179/90; PULSE 57; RESP 14; TEMP 35.7; O2SAT 100
[2019-07-27 07:18] LABS: Abs Immature Grans 0.01 k/cumm (0.0-0.09); Absolute Basophil Count 0.03 k/cumm (0.0-0.2); Absolute Eosinophil Count 0.22 k/cumm (0.0-0.7); Absolute Lymphocyte Count 0.58 k/cumm (1.2-3.4); Absolute Monocyte Count 0.42 k/cumm (0.11-0.7); Absolute Neutrophil Count 2.87 k/cumm (1.2-6.7); Basophils % 0.7; Eosinophils % 5.3; HCT 36.8 % (40.0-50.0); HGB 11.5 g/dL (13.5-17.5); Immature Grans % 0.2 %; Mean Corp. HGB Concentration 31.3 g/dL (32.0-36.0); Mean Corpuscular Hemoglobin 31.3 pg (27.0-33.0); Mean Platelet Volume 11.2 fL (8.0-11.0); Monocytes % 10.2; Neutrophils % 69.6; Platelet Count 73 x1000/uL (130-400); RBC 3.68 m/cumm (4.50-6.00); RBC Distribution Width 15.7 % (11.8-14.1); White Blood Cell Count 4.13 k/cumm (4.4-10.8)
[2019-07-27 07:23] LABS: CREATININE 1.56 mg/dL (0.70-1.30); Estimated GFR 45.47 (mL/min/1.73m2)
[2019-07-27 07:34] LABS: Anisocytosis 1+; Diff Comment Diff Reviewed; Polychromasia Present
[2019-07-27 07:35] LABS: Poikilocytes 1+
[2019-07-27 07:49] LABS: Iron 78 ug/dL (65-175); Total Iron Binding Capacity 300 ug/dL (250-450); Transferrin Sat 26 % (20-55)
[2019-07-27] MEDS: Heparin 500 UNITS/5 ML SYRINGE IV (07:54)
[2019-07-27] MEDS: Normal Saline Flush 10 ML SYR IVP (07:54)
== END 2019-08-08 23:59 | disposition home or self-care (01) ==
LOC: INF 02:57
PROVIDERS: Nurse Practitioner Adult Health; PCP Family Medicine; Visit Provider Family Medicine
DX: M60.9 Myositis, unspecified (principal); D50.9 Iron deficiency anemia, unspecified; N18.3 Chronic kidney disease, stage 3 (moderate); D63.1 Anemia in chronic kidney disease; Z45.2 Encounter for adjustment and management of vascular access device
CPT/HCPCS: 36591; 82550; 96365; 96366; 96372; 82565; 83540; 83550; 85025; J0881; J1459; J2930

== ENCOUNTER 2019-09-08 04:04 | Outpatient (RCR) | payer MEDICARE, SELFPAY ==
[2019-08-10] VITALS (7 sets, daily range): BP systolic 131–161; BP diastolic 76–89; PULSE 62–66; RESP 18–19; TEMP 36–36.8; O2SAT 93–99
[2019-08-10 07:40] LABS: Absolute Basophil Count 0.03 k/cumm (0.0-0.2); Absolute Eosinophil Count 0.36 k/cumm (0.0-0.7); Absolute Lymphocyte Count 0.51 k/cumm (1.2-3.4); Absolute Monocyte Count 0.42 k/cumm (0.11-0.7); Absolute Neutrophil Count 2.05 k/cumm (1.2-6.7); Basophils % 0.9; Eosinophils % 10.7; HCT 35.7 % (40.0-50.0); HGB 11.4 g/dL (13.5-17.5); Lymphocytes % 15.1; Mean Corp. HGB Concentration 31.9 g/dL (32.0-36.0); Mean Corpuscular Hemoglobin 31.8 pg (27.0-33.0); Mean Corpuscular Volume 99.4 fL (80-95); Mean Platelet Volume 11.3 fL (8.0-11.0); Monocytes % 12.5; Neutrophils % 60.8; RBC 3.59 m/cumm (4.50-6.00); RBC Distribution Width 15.6 % (11.8-14.1); White Blood Cell Count 3.37 k/cumm (4.4-10.8)
[2019-08-10 07:43] LABS: CREATININE 1.64 mg/dL (0.70-1.30); Creatine Kinase 63 U/L (39-308); Estimated GFR 42.92 (mL/min/1.73m2)
[2019-08-10] MEDS: methylPREDNISolone SUCC 500 MG in Normal Saline 100 ML 432 MG IVPB (07:56)
[2019-08-10 08:01] LABS: Diff Comment PLT Morph Reviewed; Platelet Count 70 x1000/uL (130-400); RBC Morphology Normal
[2019-08-10] MEDS: Normal Saline Flush 10 ML SYR IVP (08:33)
[2019-08-10] MEDS: Heparin 500 UNITS/5 ML SYRINGE IV (13:00)
[2019-08-11 07:30] VITALS: BP 137/76; PULSE 68; RESP 19; TEMP 37; O2SAT 98
[2019-08-11 07:36] VITALS: BP 146/61; PULSE 64; RESP 19; TEMP 37; O2SAT 96
[2019-08-11] MEDS: Normal Saline Flush 10 ML SYR IVP (07:41)
[2019-08-11] MEDS: Heparin 500 UNITS/5 ML SYRINGE IV (07:41)
[2019-08-11 07:51] VITALS: BP 143/78; PULSE 64; RESP 18; TEMP 36.7; O2SAT 98
[2019-08-11 08:06] VITALS: BP 127/80; PULSE 66; RESP 19; TEMP 37; O2SAT 98
[2019-08-11 08:36] VITALS: BP 154/80; PULSE 59; RESP 18; TEMP 37; O2SAT 97
[2019-08-11 09:06] VITALS: BP 147/73; PULSE 66; RESP 18; TEMP 36.7; O2SAT 99
[2019-08-24] MEDS: Normal Saline Flush 10 ML SYR IVP (07:21)
[2019-08-24 07:29] LABS: Absolute Basophil Count 0.04 k/cumm (0.0-0.2); Absolute Eosinophil Count 0.32 k/cumm (0.0-0.7); Absolute Lymphocyte Count 0.57 k/cumm (1.2-3.4); Absolute Monocyte Count 0.42 k/cumm (0.11-0.7); Absolute Neutrophil Count 2.06 k/cumm (1.2-6.7); Basophils % 1.2; Eosinophils % 9.4; HCT 36.5 % (40.0-50.0); HGB 11.4 g/dL (13.5-17.5); Lymphocytes % 16.7; Mean Corp. HGB Concentration 31.2 g/dL (32.0-36.0); Mean Corpuscular Hemoglobin 31.3 pg (27.0-33.0); Mean Corpuscular Volume 100.3 fL (80-95); Mean Platelet Volume 11.3 fL (8.0-11.0); Monocytes % 12.3; Neutrophils % 60.4; RBC 3.64 m/cumm (4.50-6.00); RBC Distribution Width 15.3 % (11.8-14.1); White Blood Cell Count 3.41 k/cumm (4.4-10.8)
[2019-08-24 07:42] LABS: CREATININE 1.59 mg/dL (0.70-1.30); Estimated GFR 44.48 (mL/min/1.73m2)
[2019-08-24 07:59] LABS: Diff Comment Diff Reviewed; Platelet Count 60 x1000/uL (130-400)
[2019-08-24 08:00] LABS: RBC Morphology Normal
[2019-08-24] MEDS: Heparin 500 UNITS/5 ML SYRINGE IV (08:23)
[2019-08-24 08:37] LABS: Iron 65 ug/dL (65-175); Total Iron Binding Capacity 308 ug/dL (250-450); Transferrin Sat 21 % (20-55)
[2019-09-07 08:48] LABS: Abs Immature Grans 0.01 k/cumm (0.0-0.09); Absolute Basophil Count 0.04 k/cumm (0.0-0.2); Absolute Lymphocyte Count 0.65 k/cumm (1.2-3.4); Absolute Monocyte Count 0.34 k/cumm (0.11-0.7); Absolute Neutrophil Count 2.07 k/cumm (1.2-6.7); Basophils % 1.1; Eosinophils % 11.4; HCT 37.8 % (40.0-50.0); HGB 11.9 g/dL (13.5-17.5); Immature Grans % 0.3 %; Lymphocytes % 18.5; Mean Corp. HGB Concentration 31.5 g/dL (32.0-36.0); Mean Corpuscular Hemoglobin 31.2 pg (27.0-33.0); Mean Platelet Volume 10.8 fL (8.0-11.0); Monocytes % 9.7; RBC 3.82 m/cumm (4.50-6.00); RBC Distribution Width 15.1 % (11.8-14.1); White Blood Cell Count 3.51 k/cumm (4.4-10.8)
[2019-09-07] MEDS: Normal Saline Flush 10 ML SYR IVP (08:57)
[2019-09-07] MEDS: methylPREDNISolone SUCC 500 MG in Normal Saline 100 ML 400 MG IVPB (08:57)
[2019-09-07 09:01] LABS: CREATININE 1.73 mg/dL (0.70-1.30); Estimated GFR 40.36 (mL/min/1.73m2)
[2019-09-07 09:11] VITALS: BP 151/78; PULSE 65; RESP 18; TEMP 36.9; O2SAT 98
[2019-09-07 09:20] LABS: Diff Comment Diff Reviewed; Platelet Count 69 x1000/uL (130-400); RBC Morphology Normal
[2019-09-07 09:38] VITALS: BP 162/84; PULSE 66; RESP 18; TEMP 37.1; O2SAT 98
[2019-09-07] MEDS: Heparin 500 UNITS/5 ML SYRINGE IV (09:40)
[2019-09-07 09:42] LABS: Creatine Kinase 78 U/L (39-308)
[2019-09-07 09:53] VITALS: BP 140/74; PULSE 64; RESP 18; TEMP 36.8; O2SAT 99
[2019-09-07 10:08] VITALS: BP 123/80; PULSE 59; RESP 19; TEMP 36.6; O2SAT 98
[2019-09-07 10:38] VITALS: BP 164/109; PULSE 62; RESP 18; TEMP 36.5; O2SAT 98
[2019-09-07 11:08] VITALS: BP 174/90; PULSE 64; RESP 18; TEMP 36.5; O2SAT 100
[2019-09-08 08:26] VITALS: BP 178/71; PULSE 67; RESP 18; TEMP 36.7; O2SAT 97
[2019-09-08] MEDS: Normal Saline Flush 10 ML SYR IVP (08:38)
[2019-09-08 08:45] VITALS: BP 162/74; PULSE 62; RESP 19; TEMP 36.6; O2SAT 98
[2019-09-08 09:00] VITALS: BP 149/70; PULSE 66; RESP 18; TEMP 36.7; O2SAT 98
[2019-09-08 09:30] VITALS: BP 152/69; PULSE 62; RESP 19; TEMP 36.3; O2SAT 98
[2019-09-08 10:00] VITALS: BP 147/77; PULSE 63; RESP 18; TEMP 36.3; O2SAT 99
[2019-09-08 10:30] VITALS: BP 151/73; PULSE 66; RESP 18; TEMP 36.7; O2SAT 99
[2019-09-08] MEDS: Heparin 500 UNITS/5 ML SYRINGE IV (12:11)
== END 2019-09-08 23:59 | disposition home or self-care (01) ==
LOC: INF 04:04
PROVIDERS: Nurse Practitioner Adult Health; PCP Family Medicine; Visit Provider Family Medicine
DX: D50.9 Iron deficiency anemia, unspecified (principal); N18.3 Chronic kidney disease, stage 3 (moderate); D63.1 Anemia in chronic kidney disease; M60.9 Myositis, unspecified
CPT/HCPCS: 36591; 82550; 96365; 96366; 96372; 82565; 83540; 83550; 85025; J0881; J1459; J2930

== ENCOUNTER 2019-10-06 00:35 | Outpatient (RCR) | payer MEDICARE, SELFPAY ==
[2019-09-22 08:07] LABS: White Blood Cell Count 3.92 k/cumm (4.4-10.8)
[2019-09-22 08:08] LABS: Abs Immature Grans 0.01 k/cumm (0.0-0.09); Absolute Basophil Count 0.05 k/cumm (0.0-0.2); Absolute Eosinophil Count 0.38 k/cumm (0.0-0.7); Absolute Lymphocyte Count 0.72 k/cumm (1.2-3.4); Absolute Monocyte Count 0.42 k/cumm (0.11-0.7); Absolute Neutrophil Count 2.34 k/cumm (1.2-6.7); Basophils % 1.3; Eosinophils % 9.7; HCT 37.1 % (40.0-50.0); HGB 11.7 g/dL (13.5-17.5); Immature Grans % 0.3 %; Lymphocytes % 18.4; Mean Corp. HGB Concentration 31.5 g/dL (32.0-36.0); Mean Corpuscular Hemoglobin 31.4 pg (27.0-33.0); Mean Corpuscular Volume 99.5 fL (80-95); Mean Platelet Volume 11.5 fL (8.0-11.0); Monocytes % 10.7; Neutrophils % 59.6; RBC 3.73 m/cumm (4.50-6.00); RBC Distribution Width 15.2 % (11.8-14.1)
[2019-09-22] MEDS: Normal Saline Flush 10 ML SYR IVP (08:14)
[2019-09-22] MEDS: Heparin 500 UNITS/5 ML SYRINGE IV (08:14)
[2019-09-22 08:17] LABS: CREATININE 1.63 mg/dL (0.70-1.30); Estimated GFR 43.23 (mL/min/1.73m2)
[2019-09-22 08:19] LABS: Platelet Count 57 x1000/uL (130-400)
[2019-09-22 08:22] LABS: Iron 73 ug/dL (65-175); Total Iron Binding Capacity 340 ug/dL (250-450); Transferrin Sat 21 % (20-55)
[2019-10-05] MEDS: Normal Saline Flush 10 ML SYR IVP (08:00)
[2019-10-05 08:19] LABS: Absolute Basophil Count 0.03 k/cumm (0.0-0.2); Absolute Eosinophil Count 0.41 k/cumm (0.0-0.7); Absolute Lymphocyte Count 0.58 k/cumm (1.2-3.4); HCT 35.9 % (40.0-50.0); HGB 11.3 g/dL (13.5-17.5); Lymphocytes % 19.9; Mean Corp. HGB Concentration 31.5 g/dL (32.0-36.0); Mean Corpuscular Hemoglobin 31.4 pg (27.0-33.0); Mean Corpuscular Volume 99.7 fL (80-95); Mean Platelet Volume 10.8 fL (8.0-11.0); Monocytes % 10.3; Neutrophils % 54.8; RBC Distribution Width 15.2 % (11.8-14.1); White Blood Cell Count 2.92 k/cumm (4.4-10.8)
[2019-10-05 08:35] LABS: Anisocytosis 1+; Diff Comment PLT Morph Reviewed; Platelet Count 59 x1000/uL (130-400); Poikilocytes 1+
[2019-10-05 08:40] LABS: Creatine Kinase 80 U/L (39-308); Estimated GFR 38.55 (mL/min/1.73m2)
[2019-10-05] MEDS: methylPREDNISolone SUCC 500 MG in Normal Saline 100 ML 400 MG IVPB (08:49)
[2019-10-05 09:15] VITALS: BP 152/74; PULSE 63; RESP 18; TEMP 36.4
[2019-10-05 09:30] VITALS: BP 148/83; PULSE 98; RESP 18; TEMP 36.4
[2019-10-05 10:15] VITALS: BP 153/74; PULSE 61; RESP 18; TEMP 36.7
[2019-10-05 10:45] VITALS: BP 152/72; PULSE 77; RESP 18; TEMP 36.8
[2019-10-05] MEDS: Heparin 500 UNITS/5 ML SYRINGE IV (12:51)
[2019-10-05 15:47] LABS: Albumin 3.2 g/dL (3.4-5.0); Anion Gap 8.6 mmol/L (3-11); BUN 42 mg/dL (7-18); CO2 25.4 mmol/L (21.0-32.0); CREATININE 1.81 mg/dL (0.70-1.30); Calcium 8.9 mg/dL (8.5-10.1); Chloride 106 mmol/L (98-107); Glucose 152 mg/dL (74-106); PHOSPHORUS 3.2 mg/dL (2.6-4.7); Potassium 4.1 mmol/L (3.5-5.1); Sodium 140 mmol/L (136-145); Uric Acid 4.4 mg/dL (3.5-7.2)
[2019-10-06 08:15] VITALS: BP 146/80; PULSE 64; RESP 19; TEMP 37.1; O2SAT 96
[2019-10-06] MEDS: Normal Saline Flush 10 ML SYR IVP (08:17)
[2019-10-06] MEDS: Heparin 500 UNITS/5 ML SYRINGE IV (08:17)
[2019-10-06 08:21] VITALS: BP 155/73; PULSE 65; RESP 19; TEMP 37; O2SAT 97
[2019-10-06 08:31] LABS: C-Reactive Protein 1.09 mg/dL (0.0-0.3)
[2019-10-06 08:36] VITALS: BP 146/80; PULSE 64; RESP 19; TEMP 37; O2SAT 96
[2019-10-06 08:52] VITALS: BP 147/70; PULSE 69; RESP 18; TEMP 37; O2SAT 97
[2019-10-06 09:19] LABS: ESR 87 mm/hr (1-20)
[2019-10-06 09:22] VITALS: BP 148/78; PULSE 62; RESP 19; TEMP 37; O2SAT 98
[2019-10-06 09:52] VITALS: BP 157/75; PULSE 65; RESP 18; TEMP 37; O2SAT 98
[2019-10-06 12:07] LABS: Parathyroid Hormone,Intact 82 pg/mL (19-88)
== END 2019-10-08 23:59 | disposition home or self-care (01) ==
LOC: INF 00:35
PROVIDERS: Internal Medicine Rheumatology; Nurse Practitioner Adult Health; PCP Family Medicine; Visit Provider Family Medicine
DX: D50.0 Iron deficiency anemia secondary to blood loss (chronic) (principal); D75.89 Other specified diseases of blood and blood-forming organs; M60.9 Myositis, unspecified
CPT/HCPCS: 36591; 80048; 82550; 85652; 96365; 96366; 96372; 82040; 82565; 83540; 83550; 83970; 84100; 84550; 85025; 86140; J0881; J1459; J2930

== ENCOUNTER 2019-11-04 01:42 | Outpatient (RCR) | payer MEDICARE, SELFPAY ==
[2019-10-19] MEDS: Heparin 500 UNITS/5 ML SYRINGE IV ×2 (08:07→08:54)
[2019-10-19] MEDS: Normal Saline Flush 10 ML SYR IVP ×2 (08:07→08:54)
[2019-10-19 08:19] LABS: Absolute Basophil Count 0.02 k/cumm (0.0-0.2); Absolute Lymphocyte Count 0.61 k/cumm (1.2-3.4); Absolute Monocyte Count 0.39 k/cumm (0.11-0.7); Absolute Neutrophil Count 2.84 k/cumm (1.2-6.7); Basophils % 0.5; Eosinophils % 7.2; HCT 34.1 % (40.0-50.0); HGB 10.9 g/dL (13.5-17.5); Lymphocytes % 14.7; Mean Corpuscular Hemoglobin 31.6 pg (27.0-33.0); Mean Corpuscular Volume 98.8 fL (80-95); Mean Platelet Volume 10.4 fL (8.0-11.0); Monocytes % 9.4; Neutrophils % 68.2; RBC 3.45 m/cumm (4.50-6.00); White Blood Cell Count 4.16 k/cumm (4.4-10.8)
[2019-10-19 08:36] LABS: Diff Comment PLT Morph Reviewed; Platelet Count 62 x1000/uL (130-400); RBC Morphology Normal
[2019-10-19 08:45] LABS: ALT 32 U/L (16-63); AST 27 U/L (15-37); Albumin 2.9 g/dL (3.4-5.0); Alkaline Phosphatase 121 U/L (46-116); Anion Gap 8.9 mmol/L (3-11); BUN 38 mg/dL (7-18); Bilirubin, Total 0.6 mg/dL (0.2-1.0); CO2 25.1 mmol/L (21.0-32.0); CREATININE 1.71 mg/dL (0.70-1.30); Calcium 8.5 mg/dL (8.5-10.1); Chloride 105 mmol/L (98-107); Ferritin 461 ng/mL (26-388); Glucose 129 mg/dL (74-106); Potassium 4.4 mmol/L (3.5-5.1); Sodium 139 mmol/L (136-145); Total Protein 8.1 g/dL (6.4-8.2)
[2019-10-19 09:02] LABS: Iron 67 ug/dL (65-175); Total Iron Binding Capacity 311 ug/dL (250-450); Transferrin Sat 22 % (20-55)
[2019-11-03 07:57] LABS: Absolute Basophil Count 0.04 k/cumm (0.0-0.2); Absolute Eosinophil Count 0.45 k/cumm (0.0-0.7); Absolute Lymphocyte Count 0.67 k/cumm (1.2-3.4); Absolute Monocyte Count 0.36 k/cumm (0.11-0.7); Absolute Neutrophil Count 2.18 k/cumm (1.2-6.7); Basophils % 1.1; Eosinophils % 12.2; HCT 35.5 % (40.0-50.0); HGB 11.4 g/dL (13.5-17.5); Lymphocytes % 18.1; Mean Corp. HGB Concentration 32.1 g/dL (32.0-36.0); Mean Corpuscular Hemoglobin 31.7 pg (27.0-33.0); Mean Corpuscular Volume 98.6 fL (80-95); Mean Platelet Volume 10.5 fL (8.0-11.0); Monocytes % 9.7; Neutrophils % 58.9; RBC Distribution Width 15.3 % (11.8-14.1)
[2019-11-03 08:14] LABS: Diff Comment PLT Morph Reviewed; Platelet Count 73 x1000/uL (130-400)
[2019-11-03 08:15] LABS: Anisocytosis 1+
[2019-11-03 08:23] LABS: CREATININE 1.58 mg/dL (0.70-1.30); Creatine Kinase 64 U/L (39-308); Estimated GFR 44.81 (mL/min/1.73m2)
[2019-11-03] MEDS: METHYLPREDNISOLONE SUCC IVPB (08:24)
[2019-11-03] MEDS: NORMAL SALINE IVPB (08:24)
[2019-11-03] MEDS: Heparin 500 UNITS/5 ML SYRINGE IV (08:24)
[2019-11-03] MEDS: Normal Saline Flush 10 ML SYR IVP (08:24)
[2019-11-03 08:25] VITALS: BP 163/79; PULSE 71; RESP 19; TEMP 37.1; O2SAT 98
[2019-11-03 08:41] VITALS: BP 158/78; PULSE 67; RESP 19; TEMP 36.8; O2SAT 100
[2019-11-03 08:59] VITALS: BP 164/76; PULSE 74; RESP 19; TEMP 37.1; O2SAT 99
[2019-11-03 09:44] VITALS: BP 147/85; PULSE 70; RESP 18; TEMP 36.9; O2SAT 99
[2019-11-03 10:14] VITALS: BP 147/85; PULSE 70; RESP 18; TEMP 36.9; O2SAT 99
[2019-11-03 10:44] VITALS: BP 185/93; PULSE 68; RESP 18; TEMP 36.6; O2SAT 99
[2019-11-04] VITALS (8 sets, daily range): BP systolic 151–194; BP diastolic 69–93; PULSE 67–76; RESP 18–19; TEMP 36–37.1; O2SAT 97–99
[2019-11-04] MEDS: Heparin 500 UNITS/5 ML SYRINGE IV (08:16)
[2019-11-04] MEDS: Normal Saline Flush 10 ML SYR IVP (08:16)
== END 2019-11-08 23:59 | disposition home or self-care (01) ==
LOC: INF 01:42
PROVIDERS: Nurse Practitioner Adult Health; PCP Family Medicine; Visit Provider Nurse Practitioner Acute Care
DX: D50.0 Iron deficiency anemia secondary to blood loss (chronic) (principal); Z45.2 Encounter for adjustment and management of vascular access device; D75.89 Other specified diseases of blood and blood-forming organs; M60.9 Myositis, unspecified
CPT/HCPCS: 36591; 80053; 82550; 96365; 96366; 96372; 82565; 82728; 83540; 83550; 85025; J0881; J1459; J2930

== ENCOUNTER 2019-12-01 00:44 | Outpatient (RCR) | payer MEDICARE, SELFPAY ==
[2019-11-16 07:50] LABS: Absolute Basophil Count 0.02 k/cumm (0.0-0.2); Absolute Eosinophil Count 0.34 k/cumm (0.0-0.7); Absolute Lymphocyte Count 0.52 k/cumm (1.2-3.4); Absolute Monocyte Count 0.37 k/cumm (0.11-0.7); Absolute Neutrophil Count 2.82 k/cumm (1.2-6.7); Basophils % 0.5; Eosinophils % 8.4; HGB 11.2 g/dL (13.5-17.5); Lymphocytes % 12.8; Mean Corp. HGB Concentration 31.1 g/dL (32.0-36.0); Mean Corpuscular Hemoglobin 30.9 pg (27.0-33.0); Mean Corpuscular Volume 99.2 fL (80-95); Monocytes % 9.1; Neutrophils % 69.2; RBC 3.63 m/cumm (4.50-6.00); RBC Distribution Width 15.3 % (11.8-14.1); White Blood Cell Count 4.07 k/cumm (4.4-10.8)
[2019-11-16 07:56] LABS: CREATININE 1.74 mg/dL (0.70-1.30); Estimated GFR 40.09 (mL/min/1.73m2)
[2019-11-16 08:07] LABS: Platelet Count 57 x1000/uL (130-400)
[2019-11-16 08:08] LABS: Anisocytosis 1+; Diff Comment PLT Morph Reviewed
[2019-11-16 08:20] LABS: Iron 62 ug/dL (65-175); Total Iron Binding Capacity 310 ug/dL (250-450); Transferrin Sat 20 % (20-55)
[2019-11-16] MEDS: Normal Saline Flush 10 ML SYR IVP ×2 (08:36→08:43)
[2019-11-16] MEDS: Heparin 500 UNITS/5 ML SYRINGE IV ×2 (08:37→08:44)
[2019-11-30 08:46] LABS: Absolute Basophil Count 0.03 k/cumm (0.0-0.2); Absolute Lymphocyte Count 0.64 k/cumm (1.2-3.4); Absolute Monocyte Count 0.45 k/cumm (0.11-0.7); Absolute Neutrophil Count 2.42 k/cumm (1.2-6.7); Basophils % 0.7; Eosinophils % 14.5; HCT 34.4 % (40.0-50.0); HGB 10.8 g/dL (13.5-17.5); Lymphocytes % 15.5; Mean Corp. HGB Concentration 31.4 g/dL (32.0-36.0); Mean Corpuscular Hemoglobin 30.9 pg (27.0-33.0); Mean Corpuscular Volume 98.6 fL (80-95); Mean Platelet Volume 11.6 fL (8.0-11.0); Monocytes % 10.9; Neutrophils % 58.4; RBC 3.49 m/cumm (4.50-6.00); RBC Distribution Width 15.5 % (11.8-14.1); White Blood Cell Count 4.14 k/cumm (4.4-10.8)
[2019-11-30 08:50] VITALS: BP 121/63; PULSE 65; RESP 18; TEMP 36.5; O2SAT 97
[2019-11-30] MEDS: METHYLPREDNISOLONE SUCC IVPB (08:52)
[2019-11-30] MEDS: NORMAL SALINE IVPB (08:52)
[2019-11-30] MEDS: Normal Saline Flush 10 ML SYR IVP (08:52)
[2019-11-30] MEDS: Heparin 500 UNITS/5 ML SYRINGE IV (08:53)
[2019-11-30 08:56] LABS: CREATININE 2.04 mg/dL (0.70-1.30); Creatine Kinase 79 U/L (39-308); Estimated GFR 33.37 (mL/min/1.73m2)
[2019-11-30 09:02] LABS: Anisocytosis 1+; Diff Comment RBC Morph Reviewed; Hypochromasia 1+; Platelet Count 87 x1000/uL (130-400)
[2019-11-30 09:33] VITALS: BP 127/53; PULSE 65; RESP 19; TEMP 36.3; O2SAT 96
[2019-11-30 09:48] VITALS: BP 118/58; PULSE 61; RESP 18; TEMP 36.3; O2SAT 97
[2019-11-30 10:03] VITALS: BP 131/55; PULSE 62; RESP 19; TEMP 36.3; O2SAT 96
[2019-11-30 10:31] VITALS: BP 141/58; PULSE 62; RESP 18; O2SAT 98
[2019-11-30 11:05] VITALS: BP 146/75; PULSE 63; RESP 19; TEMP 36.5; O2SAT 96
[2019-12-01 08:18] VITALS: BP 147/70; PULSE 68; RESP 18; TEMP 36.8; O2SAT 98
[2019-12-01] MEDS: Heparin 500 UNITS/5 ML SYRINGE IV (08:23)
[2019-12-01] MEDS: Normal Saline Flush 10 ML SYR IVP (08:23)
[2019-12-01 08:36] VITALS: BP 130/60; BP 147/70; PULSE 66; PULSE 71; RESP 18; RESP 19; TEMP 36.8; O2SAT 97; O2SAT 98
[2019-12-01 09:06] VITALS: BP 147/71; PULSE 69; RESP 19; TEMP 36.8; O2SAT 99
[2019-12-01 09:37] VITALS: BP 133/65; PULSE 65; RESP 19; TEMP 36.8; O2SAT 99
[2019-12-01 10:05] VITALS: BP 136/63; PULSE 64; RESP 18; TEMP 35.9; O2SAT 98
== END 2019-12-08 23:59 | disposition home or self-care (01) ==
LOC: INF 00:44
PROVIDERS: Nurse Practitioner Adult Health; PCP Family Medicine; Visit Provider Family Medicine
DX: D50.0 Iron deficiency anemia secondary to blood loss (chronic) (principal); D63.1 Anemia in chronic kidney disease; Z45.2 Encounter for adjustment and management of vascular access device; M60.9 Myositis, unspecified
CPT/HCPCS: 36591; 82550; 96365; 96366; 96372; 82565; 83540; 83550; 85025; J0881; J1459; J2930

== ENCOUNTER 2019-12-29 01:54 | Outpatient (RCR) | payer MEDICARE, SELFPAY ==
[2019-12-14] MEDS: Heparin 500 UNITS/5 ML SYRINGE IV (07:58)
[2019-12-14] MEDS: Normal Saline Flush 10 ML SYR IVP (07:58)
[2019-12-14 08:24] LABS: Abs Immature Grans 0.01 k/cumm (0.0-0.09); Absolute Basophil Count 0.03 k/cumm (0.0-0.2); Absolute Eosinophil Count 0.31 k/cumm (0.0-0.7); Absolute Lymphocyte Count 0.61 k/cumm (1.2-3.4); Absolute Monocyte Count 0.34 k/cumm (0.11-0.7); Basophils % 0.8; Eosinophils % 8.2; HCT 34.9 % (40.0-50.0); HGB 11.1 g/dL (13.5-17.5); Immature Grans % 0.3 %; Lymphocytes % 16.1; Mean Corp. HGB Concentration 31.8 g/dL (32.0-36.0); Mean Corpuscular Hemoglobin 31.5 pg (27.0-33.0); Mean Corpuscular Volume 99.1 fL (80-95); Mean Platelet Volume 11.5 fL (8.0-11.0); Monocytes % 8.9; Neutrophils % 65.7; RBC 3.52 m/cumm (4.50-6.00); RBC Distribution Width 15.8 % (11.8-14.1)
[2019-12-14 08:30] LABS: CREATININE 2.04 mg/dL (0.70-1.30); Estimated GFR 33.37 (mL/min/1.73m2)
[2019-12-14 08:34] LABS: Iron 55 ug/dL (65-175); Total Iron Binding Capacity 285 ug/dL (250-450); Transferrin Sat 19 % (20-55)
[2019-12-14 08:41] LABS: Anisocytosis 1+; Diff Comment RBC Morph Reviewed; Platelet Count 59 x1000/uL (130-400)
[2019-12-14] MEDS: IRON SUCROSE COMPLEX 300 MG in Normal Saline 250 ML 176.667 MG IVPB (09:12)
[2019-12-28 08:26] LABS: Absolute Basophil Count 0.03 k/cumm (0.0-0.2); Absolute Lymphocyte Count 0.62 k/cumm (1.2-3.4); Absolute Monocyte Count 0.33 k/cumm (0.11-0.7); Absolute Neutrophil Count 2.01 k/cumm (1.2-6.7); Basophils % 0.9; Eosinophils % 14.3; HCT 33.7 % (40.0-50.0); HGB 10.8 g/dL (13.5-17.5); Lymphocytes % 17.8; Mean Corpuscular Hemoglobin 31.6 pg (27.0-33.0); Mean Corpuscular Volume 98.5 fL (80-95); Mean Platelet Volume 11.1 fL (8.0-11.0); Monocytes % 9.5; Neutrophils % 57.5; RBC 3.42 m/cumm (4.50-6.00); RBC Distribution Width 15.8 % (11.8-14.1); White Blood Cell Count 3.49 k/cumm (4.4-10.8)
[2019-12-28] MEDS: Heparin 500 UNITS/5 ML SYRINGE IV (08:37)
[2019-12-28] MEDS: Normal Saline Flush 10 ML SYR IVP (08:37)
[2019-12-28] MEDS: NORMAL SALINE IVPB (08:37)
[2019-12-28] MEDS: METHYLPREDNISOLONE SUCC IVPB (08:37)
[2019-12-28 08:40] VITALS: BP 149/70; PULSE 64; RESP 19; TEMP 37; O2SAT 98
[2019-12-28 08:40] LABS: CREATININE 1.94 mg/dL (0.70-1.30); Creatine Kinase 156 U/L (39-308); Estimated GFR 35.36 (mL/min/1.73m2)
[2019-12-28 08:41] LABS: Platelet Count 76 x1000/uL (130-400)
[2019-12-28 08:42] LABS: Diff Comment PLT Morph Reviewed; Polychromasia Present
[2019-12-28 09:13] VITALS: BP 153/66; PULSE 63; RESP 18; TEMP 36.6; O2SAT 98
[2019-12-28 09:28] VITALS: BP 135/68; PULSE 64; RESP 19; TEMP 36.4; O2SAT 99
[2019-12-28 09:56] VITALS: BP 155/52; PULSE 65; RESP 20; TEMP 36.6; O2SAT 97
[2019-12-28 10:13] VITALS: BP 129/65; PULSE 65; RESP 18; TEMP 36.8; O2SAT 98
[2019-12-28 10:47] VITALS: BP 153/62; PULSE 61; RESP 19; TEMP 36.6; O2SAT 98
[2019-12-29 07:30] VITALS: BP 147/71; PULSE 62; RESP 18; TEMP 36.7
[2019-12-29 07:33] VITALS: BP 153/62; PULSE 61; RESP 19; TEMP 36.6; O2SAT 98
[2019-12-29] MEDS: Heparin 500 UNITS/5 ML SYRINGE IV (07:33)
[2019-12-29] MEDS: Normal Saline Flush 10 ML SYR IVP (07:33)
[2019-12-29 07:45] VITALS: BP 141/74; PULSE 62; TEMP 36.3
[2019-12-29 08:30] VITALS: BP 129/62; PULSE 62; RESP 19; TEMP 36.6; O2SAT 98
[2019-12-29 09:00] VITALS: BP 145/67; PULSE 64; RESP 18; TEMP 36.4; O2SAT 96
== END 2020-01-08 23:59 | disposition home or self-care (01) ==
LOC: INF 01:54
PROVIDERS: Internal Medicine Rheumatology; PCP Family Medicine; Visit Provider Family Medicine
DX: D50.0 Iron deficiency anemia secondary to blood loss (chronic) (principal); Z45.2 Encounter for adjustment and management of vascular access device; D63.1 Anemia in chronic kidney disease; M60.9 Myositis, unspecified; N18.9 Chronic kidney disease, unspecified
CPT/HCPCS: 36591; 82550; 96365; 96366; 96372; 82565; 83540; 83550; 85025; J0881; J1459; J1756; J2930

== ENCOUNTER 2020-02-08 02:26 | Outpatient (RCR) | payer MEDICARE, SELFPAY ==
[2020-01-12 07:28] LABS: HCT 35.9 % (40.0-50.0); HGB 11.2 g/dL (13.5-17.5); Lymphocytes % 17.4; MCH 31.2 pg (27.0-33.0); MCHC 31.2 % (32.0-36.0); MPV 12.3 fL (8.0-11.0); Monocytes % 8.3; Neutrophils % 63.1; RBC 3.59 10^6/uL (4.36-5.78); RDW 15.9 % (11.8-14.1); RDW-SD 58.5 fL; WBC 4.71 10^3/uL (4.4-10.8)
[2020-01-12 07:29] LABS: Abs Immature Grans 0.01 10^3/uL (0.0-0.06); Absolute Basophil Count 0.04 10^3/uL (0.0-0.2); Absolute Eosinophil Count 0.48 10^3/uL (0.0-0.7); Absolute Lymphocyte Count 0.82 10^3/uL (1.2-3.4); Absolute Monocyte Count 0.39 10^3/uL (0.1-0.8); Absolute Neutrophil Count 2.97 10^3/uL (1.2-6.7); Basophils % 0.8; Eosinophils % 10.2; Immature Grans % 0.2
[2020-01-12 07:31] LABS: CREATININE 1.77 mg/dL (0.70-1.30); Estimated GFR 39.31 (mL/min/1.73m2)
[2020-01-12] MEDS: Normal Saline Flush 10 ML SYR IVP (07:31)
[2020-01-12] MEDS: Heparin 500 UNITS/5 ML SYRINGE IV (07:31)
[2020-01-12 07:49] LABS: Anisocytosis 1+; Diff Comment Diff Reviewed; Macrocytosis 2+; Platelet Count 67 10^3/uL (130-400); Polychromasia Present
[2020-01-12 08:35] LABS: Iron 65 ug/dL (65-175); Total Iron Binding Capacity 296 ug/dL (250-450); Transferrin Sat 22 % (20-55)
[2020-01-25] MEDS: Normal Saline Flush 10 ML SYR IVP (07:57)
[2020-01-25] MEDS: Heparin 500 UNITS/5 ML SYRINGE IV (07:58)
[2020-01-25 08:13] LABS: Creatine Kinase 73 U/L (39-308); Estimated GFR 36.22 (mL/min/1.73m2); Nucleated RBC 0 %
[2020-01-25 08:15] LABS: Absolute Basophil Count 0.05 10^3/uL (0.0-0.2); Absolute Eosinophil Count 0.59 10^3/uL (0.0-0.7); Absolute Monocyte Count 0.35 10^3/uL (0.1-0.8); Absolute Neutrophil Count 2.16 10^3/uL (1.2-6.7); Basophils % 1.3; Eosinophils % 15.7; HGB 10.8 g/dL (13.5-17.5); MCH 31.1 pg (27.0-33.0); MCHC 30.9 % (32.0-36.0); MCV 100.9 fL (80-95); Monocytes % 9.3; Neutrophils % 57.7; RBC 3.47 10^6/uL (4.36-5.78); RDW 15.9 % (11.8-14.1); RDW-SD 58.4 fL; WBC 3.75 10^3/uL (4.4-10.8)
[2020-01-25 08:48] LABS: Platelet Count 71 10^3/uL (130-400)
[2020-01-25] MEDS: METHYLPREDNISOLONE SUCC IVPB (08:50)
[2020-01-25] MEDS: NORMAL SALINE IVPB (08:50)
[2020-01-25 09:16] VITALS: BP 151/70; PULSE 61; RESP 19; TEMP 36.6; O2SAT 99
[2020-01-25 09:25] VITALS: BP 162/72; PULSE 63; RESP 18; TEMP 36.6; O2SAT 100
[2020-01-25 09:40] VITALS: BP 169/70; PULSE 63; RESP 19; TEMP 36.7; O2SAT 98
[2020-01-25 10:10] VITALS: BP 157/59; PULSE 73; RESP 18; TEMP 36.4; O2SAT 98
[2020-01-25 10:40] VITALS: BP 175/78; PULSE 65; RESP 19; TEMP 36.2; O2SAT 98
[2020-01-25 11:10] VITALS: BP 159/69; PULSE 64; RESP 18; TEMP 36.2; O2SAT 100
[2020-01-26 07:50] VITALS: BP 167/68; PULSE 74; RESP 18; TEMP 36.7; O2SAT 97
[2020-01-26 07:55] VITALS: BP 182/62; PULSE 62; RESP 19; TEMP 36.7; O2SAT 97
[2020-01-26] MEDS: Normal Saline Flush 10 ML SYR IVP (08:00)
[2020-01-26 08:10] VITALS: BP 151/70; PULSE 61; RESP 18; TEMP 36.7; O2SAT 98
[2020-01-26 08:40] VITALS: BP 152/65; PULSE 63; RESP 18; TEMP 36.7; O2SAT 98
[2020-01-26 09:10] VITALS: BP 154/71; PULSE 59; RESP 18; TEMP 36.7; O2SAT 98
[2020-01-26 09:40] VITALS: BP 144/74; PULSE 58; RESP 18; TEMP 36.6; O2SAT 98
[2020-02-08] MEDS: Normal Saline Flush 10 ML SYR IVP (08:10)
[2020-02-08] MEDS: Heparin 500 UNITS/5 ML SYRINGE IV (08:10)
[2020-02-08 08:20] LABS: Abs Immature Grans 0.01 10^3/uL (0.0-0.06); Absolute Basophil Count 0.05 10^3/uL (0.0-0.2); Absolute Eosinophil Count 0.46 10^3/uL (0.0-0.7); Absolute Lymphocyte Count 0.81 10^3/uL (1.2-3.4); Absolute Monocyte Count 0.58 10^3/uL (0.1-0.8); Absolute Neutrophil Count 3.78 10^3/uL (1.2-6.7); Basophils % 0.9; Eosinophils % 8.1; HCT 35.8 % (40.0-50.0); HGB 11.3 g/dL (13.5-17.5); Immature Grans % 0.2; Lymphocytes % 14.2; MCH 31.4 pg (27.0-33.0); MCHC 31.6 % (32.0-36.0); MCV 99.4 fL (80-95); MPV 11.9 fL (8.0-11.0); Monocytes % 10.2; Neutrophils % 66.4; Nucleated RBC 0 %; RDW 15.5 % (11.8-14.1); RDW-SD 57.1 fL; WBC 5.69 10^3/uL (4.4-10.8)
[2020-02-08 08:34] LABS: CREATININE 1.96 mg/dL (0.70-1.30); Estimated GFR 34.94 (mL/min/1.73m2)
[2020-02-08 08:49] LABS: Diff Comment PLT Morph Reviewed; Platelet Count 66 10^3/uL (130-400); RBC Morphology Normal
[2020-02-08 09:02] LABS: Iron 54 ug/dL (65-175); Total Iron Binding Capacity 313 ug/dL (250-450); Transferrin Sat 17 % (20-55)
[2020-02-08] MEDS: IRON SUCROSE COMPLEX 300 MG in Normal Saline 250 ML 176.667 MG IVPB (09:39)
== END 2020-02-08 23:59 | disposition home or self-care (01) ==
LOC: INF 02:26
PROVIDERS: PCP Family Medicine; Visit Provider Family Medicine
DX: M60.9 Myositis, unspecified (principal); D75.89 Other specified diseases of blood and blood-forming organs; D50.0 Iron deficiency anemia secondary to blood loss (chronic); D63.1 Anemia in chronic kidney disease; N18.9 Chronic kidney disease, unspecified
CPT/HCPCS: 36591; 82550; 96365; 96366; 96372; 82565; 83540; 83550; 85025; J0881; J1459; J1756; J2930

== ENCOUNTER 2020-03-07 02:07 | Outpatient (RCR) | payer MEDICARE, SELFPAY ==
[2020-02-22] MEDS: Normal Saline Flush 10 ML SYR IVP (07:57)
[2020-02-22 08:10] LABS: Abs Immature Grans 0.01 10^3/uL (0.0-0.06); Absolute Basophil Count 0.04 10^3/uL (0.0-0.2); Absolute Eosinophil Count 0.53 10^3/uL (0.0-0.7); Absolute Lymphocyte Count 0.68 10^3/uL (1.2-3.4); Absolute Monocyte Count 0.46 10^3/uL (0.1-0.8); Absolute Neutrophil Count 2.72 10^3/uL (1.2-6.7); Basophils % 0.9; Eosinophils % 11.9; HCT 36.6 % (40.0-50.0); HGB 11.4 g/dL (13.5-17.5); Immature Grans % 0.2; Lymphocytes % 15.3; MCH 31.4 pg (27.0-33.0); MCHC 31.1 % (32.0-36.0); MCV 100.8 fL (80-95); MPV 11.3 fL (8.0-11.0); Monocytes % 10.4; Neutrophils % 61.3; Nucleated RBC 0 %; RBC 3.63 10^6/uL (4.36-5.78); RDW 15.6 % (11.8-14.1); WBC 4.44 10^3/uL (4.4-10.8)
[2020-02-22 08:15] VITALS: BP 149/75; PULSE 70; RESP 19; TEMP 36.9; O2SAT 99
[2020-02-22 08:17] LABS: CREATININE 1.85 mg/dL (0.70-1.30); Estimated GFR 37.35 (mL/min/1.73m2)
[2020-02-22] MEDS: METHYLPREDNISOLONE SUCC IVPB (08:24)
[2020-02-22] MEDS: NORMAL SALINE IVPB (08:24)
[2020-02-22 08:36] LABS: Platelet Count 69 10^3/uL (130-400)
[2020-02-22 08:56] VITALS: BP 136/75; PULSE 66; RESP 19; TEMP 36.8; O2SAT 99
[2020-02-22 09:11] VITALS: BP 144/76; PULSE 65; RESP 20; TEMP 36.5; O2SAT 98
[2020-02-22 09:41] VITALS: BP 144/80; PULSE 65; RESP 18; TEMP 36.5; O2SAT 98
[2020-02-22 10:11] VITALS: BP 145/84; PULSE 67; RESP 19; TEMP 36.5; O2SAT 99
[2020-02-22 10:45] VITALS: BP 102/70; PULSE 87; RESP 17; TEMP 36.3; O2SAT 100
[2020-02-23] MEDS: Normal Saline Flush 10 ML SYR IVP (07:38)
[2020-02-23] MEDS: Heparin 500 UNITS/5 ML SYRINGE IV (07:38)
[2020-02-23 07:39] VITALS: BP 165/78; PULSE 61; RESP 19; TEMP 36.8; O2SAT 98
[2020-02-23 07:41] VITALS: BP 155/78; PULSE 60; RESP 19; TEMP 36.8; O2SAT 98
[2020-02-23 07:56] VITALS: BP 150/66; PULSE 63; RESP 18; TEMP 36.8; O2SAT 98
[2020-02-23 08:26] VITALS: BP 152/67; PULSE 60; RESP 18; TEMP 36.6; O2SAT 98
[2020-02-23 08:56] VITALS: BP 149/68; PULSE 61; RESP 18; TEMP 36.6; O2SAT 98
[2020-02-23 09:26] VITALS: BP 146/70; PULSE 60; RESP 18; TEMP 36.5; O2SAT 100
[2020-03-07] MEDS: Normal Saline Flush 10 ML SYR IVP ×2 (07:30→09:58)
[2020-03-07 08:12] LABS: Absolute Basophil Count 0.03 10^3/uL (0.0-0.2); Absolute Eosinophil Count 0.35 10^3/uL (0.0-0.7); Absolute Lymphocyte Count 0.59 10^3/uL (1.2-3.4); Absolute Neutrophil Count 2.15 10^3/uL (1.2-6.7); Basophils % 0.9; Eosinophils % 10.2; HCT 35.2 % (40.0-50.0); HGB 11.1 g/dL (13.5-17.5); Lymphocytes % 17.3; MCH 31.4 pg (27.0-33.0); MCHC 31.5 % (32.0-36.0); MCV 99.7 fL (80-95); MPV 12.6 fL (8.0-11.0); Monocytes % 8.8; Neutrophils % 62.8; Nucleated RBC 0 %; RBC 3.53 10^6/uL (4.36-5.78); RDW 15.7 % (11.8-14.1); RDW-SD 57.1 fL; WBC 3.42 10^3/uL (4.4-10.8)
[2020-03-07 08:38] LABS: Diff Comment PLT Morph Reviewed; Platelet Count 58 10^3/uL (130-400); RBC Morphology Normal
[2020-03-07 08:40] LABS: CREATININE 1.95 mg/dL (0.70-1.30); Estimated GFR 35.15 (mL/min/1.73m2)
[2020-03-07 09:29] LABS: Iron 77 ug/dL (65-175); Total Iron Binding Capacity 287 ug/dL (250-450); Transferrin Sat 27 % (20-55)
[2020-03-07] MEDS: IRON SUCROSE COMPLEX 300 MG in Normal Saline 250 ML 176.667 MG IVPB (09:58)
== END 2020-03-09 23:59 | disposition home or self-care (01) ==
LOC: INF 02:07
PROVIDERS: Nurse Practitioner Adult Health; PCP Family Medicine; Visit Provider Family Medicine
DX: D63.1 Anemia in chronic kidney disease (principal); D50.0 Iron deficiency anemia secondary to blood loss (chronic); N18.9 Chronic kidney disease, unspecified; M60.9 Myositis, unspecified; Z45.2 Encounter for adjustment and management of vascular access device
CPT/HCPCS: 36591; 96365; 96366; 96372; 82565; 83540; 83550; 85025; J0881; J1459; J1756; J2930

== ENCOUNTER 2020-04-04 01:04 | Outpatient (RCR) | payer MEDICARE, SELFPAY ==
[2020-03-22 08:09] VITALS: BP 155/76; PULSE 69; RESP 19; TEMP 36.1; O2SAT 98
[2020-03-22] MEDS: NORMAL SALINE IVPB (08:28)
[2020-03-22] MEDS: METHYLPREDNISOLONE SUCC IVPB (08:28)
[2020-03-22 08:31] LABS: Abs Immature Grans 0.01 10^3/uL (0.0-0.06); Absolute Basophil Count 0.04 10^3/uL (0.0-0.2); Absolute Eosinophil Count 0.43 10^3/uL (0.0-0.7); Absolute Lymphocyte Count 0.63 10^3/uL (1.2-3.4); Absolute Monocyte Count 0.37 10^3/uL (0.1-0.8); Absolute Neutrophil Count 2.36 10^3/uL (1.2-6.7); Eosinophils % 11.2; HCT 34.9 % (40.0-50.0); HGB 11.1 g/dL (13.5-17.5); Immature Grans % 0.3; Lymphocytes % 16.4; MCH 31.5 pg (27.0-33.0); MCHC 31.8 % (32.0-36.0); MCV 99.1 fL (80-95); MPV 11.9 fL (8.0-11.0); Monocytes % 9.6; Neutrophils % 61.5; Nucleated RBC 0 %; Platelet Count 65 10^3/uL (130-400); RBC 3.52 10^6/uL (4.36-5.78); RDW-SD 58.5 fL; WBC 3.84 10^3/uL (4.4-10.8)
[2020-03-22 08:37] LABS: CREATININE 1.78 mg/dL (0.70-1.30); Estimated GFR 39.05 (mL/min/1.73m2)
[2020-03-22 08:46] LABS: Diff Comment PLT Morph Reviewed; RBC Morphology Normal
[2020-03-22 09:15] VITALS: BP 149/68; PULSE 63; RESP 18; TEMP 36.7; O2SAT 98
[2020-03-22 09:31] VITALS: BP 138/62; PULSE 62; RESP 18; TEMP 36.7; O2SAT 98
[2020-03-22 10:01] VITALS: BP 175/75; PULSE 63; RESP 19; TEMP 36.7; O2SAT 99
[2020-03-22 10:31] VITALS: BP 167/82; PULSE 62; RESP 18; TEMP 36.6; O2SAT 99
[2020-03-22 11:01] VITALS: BP 175/81; PULSE 67; RESP 18; TEMP 36.2; O2SAT 100
[2020-03-22] MEDS: Normal Saline Flush 10 ML SYR IVP (12:45)
[2020-03-23 07:43] VITALS: BP 160/76; PULSE 60; RESP 18; TEMP 37; O2SAT 98
[2020-03-23 07:44] VITALS: BP 160/76; PULSE 60; RESP 18; TEMP 37; O2SAT 98
[2020-03-23] MEDS: Normal Saline Flush 10 ML SYR IVP (07:46)
[2020-03-23 07:59] VITALS: BP 169/64; PULSE 72; RESP 19; TEMP 37; O2SAT 96
[2020-03-23 08:59] VITALS: BP 156/68; PULSE 60; RESP 18; TEMP 36.8; O2SAT 98
[2020-03-23 09:29] VITALS: BP 147/72; PULSE 63; RESP 18; TEMP 36.6; O2SAT 97
[2020-03-23] MEDS: Heparin 500 UNITS/5 ML SYRINGE (11:00)
[2020-04-04] MEDS: Normal Saline Flush 10 ML SYR IVP (08:11)
[2020-04-04 08:24] LABS: Abs Immature Grans 0.02 10^3/uL (0.0-0.06); Absolute Basophil Count 0.05 10^3/uL (0.0-0.2); Absolute Eosinophil Count 0.38 10^3/uL (0.0-0.7); Absolute Lymphocyte Count 0.71 10^3/uL (1.2-3.4); Absolute Monocyte Count 0.43 10^3/uL (0.1-0.8); Absolute Neutrophil Count 2.58 10^3/uL (1.2-6.7); Basophils % 1.2; Eosinophils % 9.1; HCT 36.2 % (40.0-50.0); HGB 11.2 g/dL (13.5-17.5); Immature Grans % 0.5; MCH 31.5 pg (27.0-33.0); MCHC 30.9 % (32.0-36.0); MPV 11.6 fL (8.0-11.0); Monocytes % 10.3; Neutrophils % 61.9; Nucleated RBC 0 %; RBC 3.55 10^6/uL (4.36-5.78); RDW 15.5 % (11.8-14.1); RDW-SD 58.2 fL; WBC 4.17 10^3/uL (4.4-10.8)
[2020-04-04 08:40] LABS: Diff Comment PLT Morph Reviewed; Platelet Count 62 10^3/uL (130-400); RBC Morphology Normal
[2020-04-04 08:41] LABS: CREATININE 1.78 mg/dL (0.70-1.30); Estimated GFR 38.92 (mL/min/1.73m2)
[2020-04-04 08:53] LABS: Iron 91 ug/dL (65-175); Total Iron Binding Capacity 287 ug/dL (250-450); Transferrin Sat 32 % (20-55)
[2020-04-04] MEDS: Heparin 500 UNITS/5 ML SYRINGE (08:59)
== END 2020-04-09 23:59 | disposition home or self-care (01) ==
LOC: INF 01:04
PROVIDERS: Nurse Practitioner Adult Health; PCP Family Medicine; Visit Provider Family Medicine
DX: D63.1 Anemia in chronic kidney disease (principal); D50.0 Iron deficiency anemia secondary to blood loss (chronic); N18.9 Chronic kidney disease, unspecified; M60.9 Myositis, unspecified; Z45.2 Encounter for adjustment and management of vascular access device
CPT/HCPCS: 36591; 96365; 96366; 96372; 82565; 83540; 83550; 85025; J0881; J1459; J2930

== ENCOUNTER 2020-04-27 00:41 | Outpatient (CLI) | payer MEDICARE, SELFPAY ==
--- NOTE | 2020-04-27 | DI.DEXA_ITS ---
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 FINDINGS: Lateral Spine Image: Unremarkable. No compression deformities identified. Left hip: Total T-Score: 0.6 Total Z-Score: 1.1 T- and Z-scores: Within normal limits. Lumbar Spine: Total T-Score: 1.7 Total Z-Score: 2.4 T- and Z-scores: Within normal limits. IMPRESSION: No evidence of osteoporosis.
== END 2020-04-27 01:01 ==
PROVIDERS: PCP Family Medicine; Visit Provider Nurse Practitioner
DX: Z79.52 Long term (current) use of systemic steroids (principal); G72.0 Drug-induced myopathy; T50.995A Adverse effect of other drugs, medicaments and biological substances, initial encounter
CPT/HCPCS: 77080

== ENCOUNTER 2020-05-02 02:11 | Outpatient (RCR) | payer MEDICARE, SELFPAY ==
[2020-04-18 07:35] LABS: Abs Immature Grans 0.01 10^3/uL (0.0-0.06); Absolute Basophil Count 0.05 10^3/uL (0.0-0.2); Absolute Monocyte Count 0.33 10^3/uL (0.1-0.8); Absolute Neutrophil Count 2.79 10^3/uL (1.2-6.7); Basophils % 1.1; Eosinophils % 13.4; HCT 36.1 % (40.0-50.0); HGB 11.2 g/dL (13.5-17.5); Immature Grans % 0.2; Lymphocytes % 15.6; MCH 31.5 pg (27.0-33.0); MCV 101.4 fL (80-95); MPV 11.1 fL (8.0-11.0); Monocytes % 7.4; Neutrophils % 62.3; Nucleated RBC 0 %; RBC 3.56 10^6/uL (4.36-5.78); RDW 15.7 % (11.8-14.1); RDW-SD 58.5 fL; WBC 4.48 10^3/uL (4.4-10.8)
[2020-04-18 07:46] LABS: Platelet Count 65 10^3/uL (130-400)
[2020-04-18 07:47] LABS: Albumin 3.1 g/dL (3.4-5.0); Anion Gap 7.7 mmol/L (3-11); BUN 51 mg/dL (7-18); CO2 25.3 mmol/L (21.0-32.0); CREATININE 2.05 mg/dL (0.70-1.30); Calcium 8.3 mg/dL (8.5-10.1); Chloride 109 mmol/L (98-107); Diff Comment Diff Reviewed; Estimated GFR 33.07 (mL/min/1.73m2); Glucose 133 mg/dL (74-106); Potassium 4.3 mmol/L (3.5-5.1); RBC Morphology Normal; Sodium 142 mmol/L (136-145)
[2020-04-18 07:57] LABS: C-Reactive Protein 1.09 mg/dL (0.0-0.3); PHOSPHORUS 3.1 mg/dL (2.6-4.7); Uric Acid 4.4 mg/dL (3.5-7.2)
[2020-04-18] MEDS: Normal Saline Flush 10 ML SYR IVP (08:01)
[2020-04-18] MEDS: METHYLPREDNISOLONE SUCC IVPB (08:01)
[2020-04-18] MEDS: NORMAL SALINE IVPB (08:01)
[2020-04-18 08:10] VITALS: BP 153/61; PULSE 64; RESP 19; TEMP 37.1; O2SAT 97
[2020-04-18 08:40] VITALS: BP 123/65; PULSE 62; RESP 16; TEMP 36.6; O2SAT 99
[2020-04-18 08:48] LABS: COMMENT (LAB VIEW ONLY) 48.01 mg/dL; Microalb ug/mg Crea 54.6 ug/mg Cr
[2020-04-18 08:52] VITALS: BP 124/73; PULSE 64; RESP 19; TEMP 37.1; O2SAT 99
[2020-04-18 09:26] VITALS: BP 151/74; PULSE 62; RESP 18; TEMP 36.8; O2SAT 100
[2020-04-18 09:50] VITALS: BP 138/78; PULSE 60; RESP 17; TEMP 36.8; O2SAT 98
[2020-04-18 10:20] VITALS: BP 145/84; PULSE 65; RESP 18; TEMP 36.8; O2SAT 99
[2020-04-18 11:35] LABS: Creatine Kinase 77 U/L (39-308)
[2020-04-18] MEDS: Heparin 500 UNITS/5 ML SYRINGE IV (12:05)
[2020-04-19 07:47] VITALS: BP 159/74; PULSE 70; RESP 18; TEMP 36.7; O2SAT 97
[2020-04-19] MEDS: Heparin 500 UNITS/5 ML SYRINGE IV (08:12)
[2020-04-19] MEDS: Normal Saline Flush 10 ML SYR IVP (08:12)
[2020-04-19 08:18] VITALS: BP 138/72; PULSE 69; RESP 18; TEMP 36; O2SAT 96
[2020-04-19 08:33] VITALS: BP 142/70; PULSE 67; RESP 18; TEMP 36.6; O2SAT 97
[2020-04-19 09:03] VITALS: BP 147/69; PULSE 63; RESP 18; TEMP 36.6; O2SAT 97
[2020-04-19 09:33] VITALS: BP 155/73; PULSE 70; RESP 19; TEMP 36.6; O2SAT 96
[2020-04-19 10:03] VITALS: BP 154/77; PULSE 66; RESP 18; TEMP 36; O2SAT 97
[2020-04-26 13:41] LABS: Parathyroid Hormone,Intact 75 pg/mL (15-65)
[2020-05-02] MEDS: Normal Saline Flush 10 ML SYR IVP (07:38)
[2020-05-02] MEDS: Heparin 500 UNITS/5 ML SYRINGE IV (07:38)
[2020-05-02 07:44] LABS: Abs Immature Grans 0.01 10^3/uL (0.0-0.06); Absolute Basophil Count 0.03 10^3/uL (0.0-0.2); Absolute Eosinophil Count 0.34 10^3/uL (0.0-0.7); Absolute Lymphocyte Count 0.65 10^3/uL (1.2-3.4); Absolute Monocyte Count 0.49 10^3/uL (0.1-0.8); Absolute Neutrophil Count 2.69 10^3/uL (1.2-6.7); Basophils % 0.7; Eosinophils % 8.1; HCT 35.5 % (40.0-50.0); HGB 11.1 g/dL (13.5-17.5); Immature Grans % 0.2; Lymphocytes % 15.4; MCH 31.5 pg (27.0-33.0); MCHC 31.3 % (32.0-36.0); MCV 100.9 fL (80-95); Monocytes % 11.6; Nucleated RBC 0 %; RBC 3.52 10^6/uL (4.36-5.78); RDW 15.1 % (11.8-14.1); WBC 4.21 10^3/uL (4.4-10.8)
[2020-05-02 07:50] LABS: CREATININE 1.92 mg/dL (0.70-1.30); Estimated GFR 35.67 (mL/min/1.73m2)
[2020-05-02 07:57] LABS: Anisocytosis 1+; Diff Comment PLT Morph Reviewed; Platelet Count 68 10^3/uL (130-400); Polychromasia Present
[2020-05-02 08:01] LABS: Iron 60 ug/dL (65-175); Total Iron Binding Capacity 299 ug/dL (250-450); Transferrin Sat 20 % (20-55)
[2020-05-02] MEDS: IRON SUCROSE COMPLEX 300 MG in Normal Saline 250 ML 176.667 MG IVPB (08:48)
== END 2020-05-09 23:59 | disposition home or self-care (01) ==
LOC: INF 02:11
PROVIDERS: Nurse Practitioner Adult Health; PCP Family Medicine; Visit Provider Family Medicine
DX: N18.30 Chronic kidney disease, stage 3 unspecified; D50.0 Iron deficiency anemia secondary to blood loss (chronic); D63.1 Anemia in chronic kidney disease; Z45.2 Encounter for adjustment and management of vascular access device; M60.9 Myositis, unspecified
CPT/HCPCS: 36591; 80048; 82550; 96365; 96366; 96372; 82040; 82043; 82565; 82570; 83540; 83550; 83970; 84100; 84550; 85025; 86140; J0881; J1459; J1756; J2930

== ENCOUNTER 2020-05-30 01:41 | Outpatient (RCR) | payer MEDICARE, SELFPAY ==
[2020-05-10 00:12] VITALS: BP 154/77; PULSE 66; RESP 18; TEMP 36
[2020-05-16] VITALS (7 sets, daily range): BP systolic 122–160; BP diastolic 75–88; PULSE 64–73; RESP 18–19; TEMP 36.2–37.8; O2SAT 97–99
[2020-05-16 07:59] LABS: Abs Immature Grans 0.01 10^3/uL (0.0-0.06); Absolute Basophil Count 0.06 10^3/uL (0.0-0.2); Absolute Eosinophil Count 0.55 10^3/uL (0.0-0.7); Absolute Lymphocyte Count 0.66 10^3/uL (1.2-3.4); Absolute Monocyte Count 0.45 10^3/uL (0.1-0.8); Absolute Neutrophil Count 2.98 10^3/uL (1.2-6.7); Basophils % 1.3; Eosinophils % 11.7; HCT 36.7 % (40.0-50.0); HGB 11.6 g/dL (13.5-17.5); Immature Grans % 0.2; MCHC 31.6 % (32.0-36.0); MCV 101.1 fL (80-95); MPV 10.1 fL (8.0-11.0); Monocytes % 9.6; Neutrophils % 63.2; Nucleated RBC 0 %; RBC 3.63 10^6/uL (4.36-5.78); RDW 15.1 % (11.8-14.1); WBC 4.71 10^3/uL (4.4-10.8)
[2020-05-16] MEDS: Normal Saline Flush 10 ML SYR IVP (08:02)
[2020-05-16 08:09] LABS: Anisocytosis 1+; Diff Comment PLT Morph Reviewed; Macrocytosis 1+; Platelet Count 69 10^3/uL (130-400)
[2020-05-16 08:11] LABS: C-Reactive Protein 0.81 mg/dL (0.0-0.3); CREATININE 1.68 mg/dL (0.70-1.30); Creatine Kinase 61 U/L (39-308); Estimated GFR 41.61 (mL/min/1.73m2)
[2020-05-16] MEDS: Heparin 500 UNITS/5 ML SYRINGE IV (08:17)
[2020-05-16] MEDS: IMMUNE GLOBULIN 5 GM/50 ML BTL 0.68 GM IVPB (08:38)
[2020-05-16] MEDS: IMMUNE GLOBULIN 10 GM/100 ML BTL 2.7 GM IVPB (09:02)
[2020-05-17 07:17] VITALS: BP 160/74; PULSE 81; RESP 19; TEMP 36.8; O2SAT 97
[2020-05-17] MEDS: IMMUNE GLOBULIN 5 GM/50 ML BTL 0.65 GM IVPB (07:27)
[2020-05-17] MEDS: Normal Saline Flush 10 ML SYR IVP (07:27)
[2020-05-17] MEDS: Heparin 500 UNITS/5 ML SYRINGE IV (07:27)
[2020-05-17 07:28] VITALS: BP 144/75; PULSE 69; RESP 19; TEMP 36.8; O2SAT 98
[2020-05-17 07:41] VITALS: BP 127/68; PULSE 64; RESP 18; TEMP 36.6; O2SAT 98
[2020-05-17] MEDS: IMMUNE GLOBULIN 10 GM/100 ML BTL 2.7 GM IVPB (07:49)
[2020-05-17 08:11] VITALS: BP 119/65; PULSE 68; RESP 18; TEMP 36.6; O2SAT 98
[2020-05-17 08:41] VITALS: BP 134/77; PULSE 68; RESP 18; TEMP 36.6; O2SAT 97
[2020-05-17 09:17] VITALS: BP 132/70; PULSE 64; RESP 18; TEMP 36.6; O2SAT 98
[2020-05-30 07:56] LABS: Abs Immature Grans 0.01 10^3/uL (0.0-0.06); Absolute Basophil Count 0.04 10^3/uL (0.0-0.2); Absolute Eosinophil Count 0.43 10^3/uL (0.0-0.7); Absolute Lymphocyte Count 0.59 10^3/uL (1.2-3.4); Absolute Neutrophil Count 2.13 10^3/uL (1.2-6.7); Basophils % 1.1; Eosinophils % 11.9; HCT 34.8 % (40.0-50.0); HGB 11.1 g/dL (13.5-17.5); Immature Grans % 0.3; Lymphocytes % 16.4; MCHC 31.9 % (32.0-36.0); MCV 100.3 fL (80-95); MPV 12.5 fL (8.0-11.0); Monocytes % 11.1; Neutrophils % 59.2; Nucleated RBC 0 %; RBC 3.47 10^6/uL (4.36-5.78); RDW 15.6 % (11.8-14.1); RDW-SD 57.3 fL
[2020-05-30 08:17] LABS: CREATININE 2.09 mg/dL (0.70-1.30); Estimated GFR 32.34 (mL/min/1.73m2)
[2020-05-30 08:18] LABS: Platelet Count 48 10^3/uL (130-400)
[2020-05-30 08:47] LABS: Iron 66 ug/dL (65-175); Total Iron Binding Capacity 301 ug/dL (250-450); Transferrin Sat 22 % (20-55)
[2020-05-30] MEDS: Normal Saline Flush 10 ML SYR IVP (08:53)
[2020-05-30] MEDS: IRON SUCROSE COMPLEX 300 MG in Normal Saline 250 ML 176.667 MG IVPB (09:04)
== END 2020-06-09 23:59 | disposition home or self-care (01) ==
LOC: INF 01:41
PROVIDERS: Nurse Practitioner; Nurse Practitioner Adult Health; PCP Family Medicine; Visit Provider Family Medicine
DX: D50.0 Iron deficiency anemia secondary to blood loss (chronic) (principal); D63.1 Anemia in chronic kidney disease; N18.30 Chronic kidney disease, stage 3 unspecified; M60.9 Myositis, unspecified; Z79.52 Long term (current) use of systemic steroids; Z45.2 Encounter for adjustment and management of vascular access device
CPT/HCPCS: 36591; 82550; 96365; 96366; 96372; 82565; 83540; 83550; 85025; 86140; J0881; J1459; J1561; J1756; J2930

== ENCOUNTER 2020-06-16 17:44 | Outpatient (CLI) | payer MEDICARE, SELFPAY ==
--- NOTE | 2020-06-16 | DI.RAD_ITS ---
EXAM: XR LUMBAR SPINE COMPLETE CLINICAL HISTORY: RT PROXIMAL FLANK PAIN W/POSITION CHANGE 01/17, H/O MYOPATHY, NO RADICULOPAT. TECHNIQUE: 2D digital imaging was performed. COMPARISON: CR LUMBAR SPINE COMPLETE from 02/10/2013 CR LUMBAR SPINE COMPLETE from 02/10/2013 CR XR DEXA BONE DENSITY W/WO MAJO from 04/27/2020 FINDINGS: There is no evidence of acute fracture. There is no prominent anterior left bridging osteophyte betw een the L4 and L5 vertebral bodies. Disc space at this level maintains normal height. Other disc sp aces exhibit normal height. Mild anterior osseous lipping L1-2. No facet arthropathy evident. The sacroiliac joints appear unremarkable. IMPRESSION: DATA REPOSITORY: RADIATION DOSE DELIVERED:
--- NOTE | 2020-06-16 | DI.RAD_ITS ---
EXAM: XR THORACIC SPINE COMPLETE CLINICAL HISTORY: RT PROXIMAL FLANK PAIN 8/10, NO RADICULOPATHY, H/O MYOPATHY. TECHNIQUE: 2D digital imaging was performed. COMPARISON: No exams were available for comparison FINDINGS: There is no evidence of compression fracture in the thoracic spinal column. No scoliosis. Multileve l bridging osteophytes noted with relative preservation of disc space height throughout the thoracic spine. No abnormal widening of the paraspinal lines. No obvious osseous lesions. IMPRESSION: DATA REPOSITORY: RADIATION DOSE DELIVERED:
== END 2020-06-16 18:04 ==
PROVIDERS: PCP Family Medicine; Visit Provider Nurse Practitioner
DX: R10.9 Unspecified abdominal pain (principal); M25.78 Osteophyte, vertebrae
CPT/HCPCS: 72072; 72110

== ENCOUNTER 2020-06-27 01:44 | Outpatient (RCR) | payer MEDICARE, SELFPAY ==
[2020-06-10 00:08] VITALS: BP 132/70; PULSE 64; RESP 18; TEMP 36.6
[2020-06-13] MEDS: Normal Saline Flush 10 ML SYR IVP (07:38)
[2020-06-13] MEDS: Heparin 500 UNITS/5 ML SYRINGE IV (07:39)
[2020-06-13 07:40] LABS: Abs Immature Grans 0.01 10^3/uL (0.0-0.06); Absolute Basophil Count 0.04 10^3/uL (0.0-0.2); Absolute Eosinophil Count 0.61 10^3/uL (0.0-0.7); Absolute Lymphocyte Count 0.62 10^3/uL (1.2-3.4); Absolute Monocyte Count 0.39 10^3/uL (0.1-0.8); Absolute Neutrophil Count 2.32 10^3/uL (1.2-6.7); Eosinophils % 15.3; HCT 36.9 % (40.0-50.0); HGB 11.4 g/dL (13.5-17.5); Immature Grans % 0.3; Lymphocytes % 15.5; MCH 31.4 pg (27.0-33.0); MCHC 30.9 % (32.0-36.0); MCV 101.7 fL (80-95); MPV 9.7 fL (8.0-11.0); Monocytes % 9.8; Neutrophils % 58.1; Nucleated RBC 0 %; RBC 3.63 10^6/uL (4.36-5.78); RDW 15.7 % (11.8-14.1); RDW-SD 58.5 fL; WBC 3.99 10^3/uL (4.4-10.8)
[2020-06-13 07:44] LABS: C-Reactive Protein 0.87 mg/dL (0.0-0.3); CREATININE 1.92 mg/dL (0.70-1.30); Creatine Kinase 73 U/L (39-308); Estimated GFR 35.67 (mL/min/1.73m2)
[2020-06-13 07:58] LABS: Anisocytosis 1+; Diff Comment PLT Morph Reviewed; Macrocytosis 2+; Platelet Count 62 10^3/uL (130-400)
[2020-06-13] MEDS: IMMUNE GLOBULIN 5 GM/50 ML BTL 0.68 GM IVPB (08:06)
[2020-06-13 08:07] VITALS: BP 120/69; PULSE 58; RESP 14; TEMP 35.8; O2SAT 100
[2020-06-13 08:19] VITALS: BP 113/73; PULSE 61; RESP 15; TEMP 35.7; O2SAT 99
[2020-06-13] MEDS: IMMUNE GLOBULIN 10 GM/100 ML BTL 2.7 GM IVPB (08:36)
[2020-06-13 08:45] VITALS: BP 143/79; PULSE 66; RESP 16; TEMP 35.8; O2SAT 99
[2020-06-13 09:28] VITALS: BP 147/72; PULSE 72; RESP 18; TEMP 35.5; O2SAT 97
[2020-06-13 10:02] VITALS: BP 145/70; PULSE 72; RESP 18; TEMP 35.8; O2SAT 100
[2020-06-13 10:36] VITALS: BP 152/80; PULSE 67; RESP 18; TEMP 35.7; O2SAT 97
[2020-06-14 07:11] VITALS: BP 161/73; PULSE 74; RESP 19; TEMP 36.8; O2SAT 97
[2020-06-14 07:25] VITALS: BP 129/71; PULSE 67; RESP 19; TEMP 36.8; O2SAT 97
[2020-06-14] MEDS: IMMUNE GLOBULIN 5 GM/50 ML BTL 0.68 GM IVPB (07:27)
[2020-06-14] MEDS: Heparin 500 UNITS/5 ML SYRINGE IV (07:27)
[2020-06-14] MEDS: Normal Saline Flush 10 ML SYR IVP (07:27)
[2020-06-14 07:40] VITALS: BP 136/72; PULSE 67; RESP 18; TEMP 36.8; O2SAT 97
[2020-06-14] MEDS: IMMUNE GLOBULIN 10 GM/100 ML BTL IVPB (07:49)
[2020-06-14 08:10] VITALS: BP 164/72; PULSE 71; RESP 18; TEMP 36.6; O2SAT 97
[2020-06-14 08:40] VITALS: BP 129/71; PULSE 68; RESP 18; TEMP 36.6; O2SAT 98
[2020-06-14 09:10] VITALS: BP 148/82; PULSE 66; RESP 18; TEMP 36.2; O2SAT 98
[2020-06-27] MEDS: Normal Saline Flush 10 ML SYR IVP (07:25)
[2020-06-27] MEDS: Heparin 500 UNITS/5 ML SYRINGE IV (07:25)
[2020-06-27 07:28] LABS: Abs Immature Grans 0.01 10^3/uL (0.0-0.06); Absolute Basophil Count 0.05 10^3/uL (0.0-0.2); Absolute Eosinophil Count 0.35 10^3/uL (0.0-0.7); Absolute Lymphocyte Count 0.59 10^3/uL (1.2-3.4); Absolute Monocyte Count 0.47 10^3/uL (0.1-0.8); Absolute Neutrophil Count 2.95 10^3/uL (1.2-6.7); Basophils % 1.1; Eosinophils % 7.9; HCT 34.7 % (40.0-50.0); Immature Grans % 0.2; Lymphocytes % 13.3; MCH 31.9 pg (27.0-33.0); MCHC 31.7 % (32.0-36.0); MCV 100.6 fL (80-95); MPV 11.7 fL (8.0-11.0); Monocytes % 10.6; Neutrophils % 66.9; Nucleated RBC 0 %; RBC 3.45 10^6/uL (4.36-5.78); RDW 15.6 % (11.8-14.1); WBC 4.42 10^3/uL (4.4-10.8)
[2020-06-27 07:34] LABS: CREATININE 1.76 mg/dL (0.70-1.30); Estimated GFR 39.43 (mL/min/1.73m2)
[2020-06-27 07:55] LABS: Iron 57 ug/dL (65-175); Total Iron Binding Capacity 296 ug/dL (250-450); Transferrin Sat 19 % (20-55)
[2020-06-27 08:06] LABS: Platelet Count 65 10^3/uL (130-400)
[2020-06-27 08:07] LABS: Anisocytosis 1+; Diff Comment PLT Morph Reviewed; Macrocytosis 2+
[2020-06-27] MEDS: IRON SUCROSE COMPLEX 300 MG in Normal Saline 250 ML 176.667 MG IVPB (08:16)
== END 2020-07-10 23:59 | disposition home or self-care (01) ==
LOC: INF 01:44
PROVIDERS: Nurse Practitioner Adult Health; PCP Family Medicine; Visit Provider Family Medicine
DX: D63.1 Anemia in chronic kidney disease (principal); N18.30 Chronic kidney disease, stage 3 unspecified; D50.0 Iron deficiency anemia secondary to blood loss (chronic); M60.9 Myositis, unspecified; Z79.52 Long term (current) use of systemic steroids; Z45.2 Encounter for adjustment and management of vascular access device
CPT/HCPCS: 36591; 82550; 96365; 96366; 96372; 82565; 83540; 83550; 85025; 86140; J0881; J1459; J1561; J1756; J2930

== ENCOUNTER 2020-07-25 01:19 | Outpatient (RCR) | payer MEDICARE, SELFPAY ==
[2020-07-11] VITALS (8 sets, daily range): BP systolic 121–153; BP diastolic 68–89; PULSE 58–100; RESP 18–20; TEMP 36.2–37.4; O2SAT 99–100
[2020-07-11] MEDS: Normal Saline Flush 10 ML SYR IVP (07:21)
[2020-07-11 07:34] LABS: Absolute Basophil Count 0.04 10^3/uL (0.0-0.2); Absolute Eosinophil Count 0.55 10^3/uL (0.0-0.7); Absolute Lymphocyte Count 0.49 10^3/uL (1.2-3.4); Absolute Monocyte Count 0.44 10^3/uL (0.1-0.8); Absolute Neutrophil Count 2.85 10^3/uL (1.2-6.7); Basophils % 0.9; Eosinophils % 12.6; HCT 36.4 % (40.0-50.0); HGB 11.5 g/dL (13.5-17.5); Lymphocytes % 11.2; MCHC 31.6 % (32.0-36.0); MCV 101.4 fL (80-95); MPV 10.9 fL (8.0-11.0); Monocytes % 10.1; Neutrophils % 65.2; Nucleated RBC 0 %; RBC 3.59 10^6/uL (4.36-5.78); RDW 15.6 % (11.8-14.1); RDW-SD 58.6 fL; WBC 4.37 10^3/uL (4.4-10.8)
[2020-07-11 07:45] LABS: C-Reactive Protein 0.98 mg/dL (0.0-0.3); CREATININE 1.8 mg/dL (0.70-1.30); Creatine Kinase 53 U/L (39-308); Estimated GFR 38.42 (mL/min/1.73m2)
[2020-07-11 07:51] LABS: Diff Comment PLT Morph Reviewed; Platelet Count 64 10^3/uL (130-400)
[2020-07-11 07:52] LABS: Macrocytosis 2+; Polychromasia Present
[2020-07-11] MEDS: IMMUNE GLOBULIN 5 GM/50 ML BTL 0.68 GM IVPB (08:25)
[2020-07-11] MEDS: IMMUNE GLOBULIN 10 GM/100 ML BTL 1.35 GM IVPB (08:51)
[2020-07-11] MEDS: Heparin 500 UNITS/5 ML SYRINGE IV (12:28)
[2020-07-12 07:29] VITALS: BP 183/62; PULSE 70; RESP 19; TEMP 37.2; O2SAT 98
[2020-07-12 07:47] VITALS: BP 132/58; PULSE 68; RESP 19; TEMP 37.2; O2SAT 98
[2020-07-12] MEDS: IMMUNE GLOBULIN 5 GM/50 ML BTL 0.68 GM IVPB (07:48)
[2020-07-12] MEDS: Normal Saline Flush 10 ML SYR IVP (07:48)
[2020-07-12] MEDS: Heparin 500 UNITS/5 ML SYRINGE IV (07:48)
[2020-07-12 08:09] VITALS: BP 142/77; PULSE 67; RESP 19; TEMP 37.2; O2SAT 99
[2020-07-12] MEDS: IMMUNE GLOBULIN 10 GM/100 ML BTL 2.7 GM IVPB (08:10)
[2020-07-12 08:32] VITALS: BP 171/66; PULSE 65; RESP 18; TEMP 37.4; O2SAT 97
[2020-07-12 09:02] VITALS: BP 127/64; PULSE 66; RESP 19; TEMP 37.4; O2SAT 95
[2020-07-12 09:32] VITALS: BP 136/65; PULSE 64; RESP 18; TEMP 37.2; O2SAT 98
[2020-07-25] MEDS: Normal Saline Flush 10 ML SYR IVP (07:23)
[2020-07-25 07:37] LABS: Abs Immature Grans 0.02 10^3/uL (0.0-0.06); Absolute Basophil Count 0.04 10^3/uL (0.0-0.2); Absolute Eosinophil Count 0.35 10^3/uL (0.0-0.7); Absolute Monocyte Count 0.42 10^3/uL (0.1-0.8); Absolute Neutrophil Count 2.81 10^3/uL (1.2-6.7); Eosinophils % 8.5; HCT 35.2 % (40.0-50.0); HGB 10.9 g/dL (13.5-17.5); Immature Grans % 0.5; Lymphocytes % 12.1; MCV 103.2 fL (80-95); MPV 11.8 fL (8.0-11.0); Monocytes % 10.1; Neutrophils % 67.8; Nucleated RBC 0 %; RBC 3.41 10^6/uL (4.36-5.78); RDW 15.9 % (11.8-14.1); RDW-SD 60.5 fL; WBC 4.14 10^3/uL (4.4-10.8)
[2020-07-25 07:51] LABS: CREATININE 1.8 mg/dL (0.70-1.30); Estimated GFR 38.42 (mL/min/1.73m2); Platelet Count 56 10^3/uL (130-400)
[2020-07-25 07:53] LABS: Diff Comment Diff Reviewed; Polychromasia Present
[2020-07-25 08:03] LABS: Iron 65 ug/dL (65-175); Total Iron Binding Capacity 296 ug/dL (250-450); Transferrin Sat 22 % (20-55)
[2020-07-25] MEDS: IRON SUCROSE COMPLEX 300 MG in Normal Saline 250 ML 176.667 MG IVPB (08:23)
[2020-07-25] MEDS: Heparin 500 UNITS/5 ML SYRINGE IV (08:24)
== END 2020-08-07 23:59 | disposition home or self-care (01) ==
LOC: INF 01:19
PROVIDERS: PCP Family Medicine; Visit Provider Family Medicine
DX: D50.0 Iron deficiency anemia secondary to blood loss (chronic) (principal); N18.30 Chronic kidney disease, stage 3 unspecified; D63.1 Anemia in chronic kidney disease; M60.9 Myositis, unspecified; Z79.52 Long term (current) use of systemic steroids; Z45.2 Encounter for adjustment and management of vascular access device; G72.9 Myopathy, unspecified
CPT/HCPCS: 36591; 82550; 96365; 96366; 96372; 82565; 83540; 83550; 85025; 86140; J0881; J1459; J1561; J1756; J2930

== ENCOUNTER 2020-09-06 02:59 | Outpatient (RCR) | payer MEDICARE, SELFPAY ==
[2020-08-08] VITALS (9 sets, daily range): BP systolic 124–164; BP diastolic 65–82; PULSE 63–68; RESP 18–20; TEMP 36.9–37.9; O2SAT 97–100
[2020-08-08 07:32] LABS: Abs Immature Grans 0.01 10^3/uL (0.0-0.06); Absolute Basophil Count 0.03 10^3/uL (0.0-0.2); Absolute Eosinophil Count 0.46 10^3/uL (0.0-0.7); Absolute Lymphocyte Count 0.54 10^3/uL (1.2-3.4); Absolute Neutrophil Count 3.11 10^3/uL (1.2-6.7); Basophils % 0.7; Eosinophils % 10.1; HCT 36.5 % (40.0-50.0); HGB 11.5 g/dL (13.5-17.5); Immature Grans % 0.2; Lymphocytes % 11.9; MCH 31.9 pg (27.0-33.0); MCHC 31.5 % (32.0-36.0); MCV 101.4 fL (80-95); MPV 10.9 fL (8.0-11.0); Monocytes % 8.8; Neutrophils % 68.3; Nucleated RBC 0 %; RDW 15.9 % (11.8-14.1); RDW-SD 60.2 fL; WBC 4.55 10^3/uL (4.4-10.8)
[2020-08-08] MEDS: Normal Saline Flush 10 ML SYR IVP ×2 (07:40→08:12)
[2020-08-08] MEDS: Heparin 500 UNITS/5 ML SYRINGE IV ×2 (07:40→08:12)
[2020-08-08 07:46] LABS: Platelet Count 69 10^3/uL (130-400)
[2020-08-08 07:47] LABS: Diff Comment PLT Morph Reviewed; Polychromasia Present
[2020-08-08 07:49] LABS: C-Reactive Protein 1.07 mg/dL (0.0-0.3); CREATININE 1.8 mg/dL (0.70-1.30); Creatine Kinase 56 U/L (39-308); Estimated GFR 38.42 (mL/min/1.73m2)
[2020-08-08] MEDS: IMMUNE GLOBULIN 10 GM/100 ML BTL IVPB (08:18)
[2020-08-08] MEDS: IMMUNE GLOBULIN 5 GM/50 ML BTL 5.4 GM IVPB (11:46)
[2020-08-09 07:17] VITALS: BP 130/69; PULSE 62; RESP 19; TEMP 37.3; O2SAT 99
[2020-08-09 07:37] VITALS: BP 126/68; PULSE 63; RESP 19; TEMP 36.9; O2SAT 98
[2020-08-09] MEDS: IMMUNE GLOBULIN 5 GM/50 ML BTL 1.35 GM IVPB (07:37)
[2020-08-09] MEDS: Normal Saline Flush 10 ML SYR IVP (07:38)
[2020-08-09] MEDS: Heparin 500 UNITS/5 ML SYRINGE IV (07:38)
[2020-08-09 07:52] VITALS: BP 123/70; PULSE 62; RESP 18; TEMP 36.9; O2SAT 97
[2020-08-09] MEDS: IMMUNE GLOBULIN 10 GM/100 ML BTL 2.7 GM IVPB (07:59)
[2020-08-09 08:22] VITALS: BP 118/70; PULSE 59; RESP 18; TEMP 36.9; O2SAT 98
[2020-08-09 08:52] VITALS: BP 116/68; PULSE 59; RESP 18; TEMP 36.8; O2SAT 98
[2020-08-09 09:22] VITALS: BP 123/62; PULSE 60; RESP 18; TEMP 36.8; O2SAT 98
[2020-08-22 07:16] LABS: CREATININE 1.7 mg/dL (0.70-1.30); Estimated GFR 41.04 (mL/min/1.73m2)
[2020-08-22 07:18] LABS: Abs Immature Grans 0.01 10^3/uL (0.0-0.06); Absolute Basophil Count 0.04 10^3/uL (0.0-0.2); Absolute Eosinophil Count 0.33 10^3/uL (0.0-0.7); Absolute Lymphocyte Count 0.53 10^3/uL (1.2-3.4); Absolute Monocyte Count 0.42 10^3/uL (0.1-0.8); Absolute Neutrophil Count 2.85 10^3/uL (1.2-6.7); Eosinophils % 7.9; HGB 11.3 g/dL (13.5-17.5); Immature Grans % 0.2; Lymphocytes % 12.7; MCH 31.9 pg (27.0-33.0); MCHC 31.4 % (32.0-36.0); MCV 101.7 fL (80-95); MPV 10.9 fL (8.0-11.0); Neutrophils % 68.2; Nucleated RBC 0 %; RBC 3.54 10^6/uL (4.36-5.78); RDW 15.4 % (11.8-14.1); RDW-SD 58.4 fL; WBC 4.18 10^3/uL (4.4-10.8)
[2020-08-22 07:34] LABS: Iron 67 ug/dL (65-175); Total Iron Binding Capacity 302 ug/dL (250-450); Transferrin Sat 22 % (20-55)
[2020-08-22 07:39] LABS: Anisocytosis 1+; Diff Comment Diff Reviewed; Platelet Count 61 10^3/uL (130-400)
[2020-08-22] MEDS: Heparin 500 UNITS/5 ML SYRINGE IV (07:48)
[2020-08-22] MEDS: Normal Saline Flush 10 ML SYR IVP (07:48)
[2020-08-22] MEDS: IRON SUCROSE COMPLEX 300 MG in Normal Saline 250 ML 176.667 MG IVPB (10:57)
[2020-09-05] MEDS: Normal Saline Flush 10 ML SYR IVP ×2 (07:23→08:08)
[2020-09-05 07:34] LABS: Abs Immature Grans 0.01 10^3/uL (0.0-0.06); Absolute Basophil Count 0.05 10^3/uL (0.0-0.2); Absolute Eosinophil Count 0.58 10^3/uL (0.0-0.7); Absolute Lymphocyte Count 0.63 10^3/uL (1.2-3.4); Absolute Monocyte Count 0.37 10^3/uL (0.1-0.8); Absolute Neutrophil Count 2.94 10^3/uL (1.2-6.7); Basophils % 1.1; Eosinophils % 12.7; HCT 37.9 % (40.0-50.0); HGB 11.9 g/dL (13.5-17.5); Immature Grans % 0.2; Lymphocytes % 13.8; MCHC 31.4 % (32.0-36.0); MCV 101.9 fL (80-95); MPV 10.5 fL (8.0-11.0); Monocytes % 8.1; Neutrophils % 64.1; Nucleated RBC 0 %; RBC 3.72 10^6/uL (4.36-5.78); RDW 15.1 % (11.8-14.1); RDW-SD 57.4 fL; WBC 4.58 10^3/uL (4.4-10.8)
[2020-09-05 07:44] LABS: C-Reactive Protein 0.94 mg/dL (0.0-0.3); CREATININE 1.8 mg/dL (0.70-1.30); Creatine Kinase 79 U/L (39-308); Estimated GFR 38.42 (mL/min/1.73m2)
[2020-09-05 07:48] LABS: Platelet Count 71 10^3/uL (130-400)
[2020-09-05 07:49] LABS: Diff Comment PLT Morph Reviewed
[2020-09-05 07:50] LABS: Poikilocytes 1+
[2020-09-05 07:52] LABS: Anisocytosis 1+
[2020-09-05 08:05] VITALS: BP 122/72; PULSE 60; RESP 18; TEMP 37.2; O2SAT 98
[2020-09-05 08:12] VITALS: BP 143/78; PULSE 64; RESP 18; TEMP 36.8; O2SAT 97
[2020-09-05] MEDS: IMMUNE GLOBULIN 5 GM/50 ML BTL 1.36 GM IVPB (08:44)
[2020-09-05 08:58] VITALS: BP 128/78; PULSE 71; RESP 18; TEMP 37.1; O2SAT 97
[2020-09-05] MEDS: IMMUNE GLOBULIN 10 GM/100 ML BTL IVPB (09:08)
[2020-09-05 09:30] VITALS: BP 138/81; PULSE 60; RESP 18; TEMP 37.1; O2SAT 99
[2020-09-05 10:00] VITALS: BP 148/79; PULSE 68; RESP 18; TEMP 37; O2SAT 99
[2020-09-05 10:37] VITALS: BP 143/84; PULSE 65; RESP 18; TEMP 36.9; O2SAT 98
[2020-09-05 17:10] LABS: PSA, Screening 0.1 ng/mL (0.0-4.5)
[2020-09-06 07:25] VITALS: BP 145/78; PULSE 75; RESP 20; TEMP 36.6; O2SAT 98
[2020-09-06 07:41] VITALS: BP 133/67; PULSE 65; RESP 20; TEMP 36.5; O2SAT 98
[2020-09-06] MEDS: Heparin 500 UNITS/5 ML SYRINGE IV (07:41)
[2020-09-06] MEDS: IMMUNE GLOBULIN 5 GM/50 ML BTL 1.35 GM IVPB (07:41)
[2020-09-06] MEDS: Normal Saline Flush 10 ML SYR IVP (07:41)
[2020-09-06 07:55] VITALS: BP 119/68; PULSE 60; RESP 18; TEMP 35.8; O2SAT 97
[2020-09-06] MEDS: IMMUNE GLOBULIN 10 GM/100 ML BTL 2.7 GM IVPB (08:02)
[2020-09-06 08:10] VITALS: BP 114/67; PULSE 60; RESP 18; TEMP 36.4; O2SAT 96
[2020-09-06 08:40] VITALS: BP 123/71; PULSE 67; RESP 16; TEMP 35.7; O2SAT 96
[2020-09-06 09:10] VITALS: BP 134/74; PULSE 56; RESP 16; TEMP 35.9; O2SAT 97
== END 2020-09-07 23:59 | disposition home or self-care (01) ==
LOC: INF 02:59
PROVIDERS: Nurse Practitioner; PCP Family Medicine; Visit Provider Nurse Practitioner Adult Health
DX: D50.0 Iron deficiency anemia secondary to blood loss (chronic) (principal); D63.1 Anemia in chronic kidney disease; G72.9 Myopathy, unspecified; Z79.52 Long term (current) use of systemic steroids; N18.9 Chronic kidney disease, unspecified; Z00.00 Encounter for general adult medical examination without abnormal findings; R39.15 Urgency of urination; M60.9 Myositis, unspecified
CPT/HCPCS: 36591; 82550; 84153; 96365; 96366; 96367; 96372; 82565; 83540; 83550; 85025; 86140; J0881; J1459; J1756; J2930

== ENCOUNTER 2020-10-05 03:17 | Outpatient (RCR) | payer MEDICARE, SELFPAY ==
[2020-09-08 00:13] VITALS: BP 134/74; PULSE 56; RESP 16; TEMP 35.9
[2020-09-19 07:30] LABS: Abs Immature Grans 0.01 10^3/uL (0.0-0.06); Absolute Basophil Count 0.05 10^3/uL (0.0-0.2); Absolute Eosinophil Count 0.43 10^3/uL (0.0-0.7); Absolute Lymphocyte Count 0.56 10^3/uL (1.2-3.4); Absolute Monocyte Count 0.41 10^3/uL (0.1-0.8); Absolute Neutrophil Count 3.61 10^3/uL (1.2-6.7); Eosinophils % 8.5; HCT 36.1 % (40.0-50.0); HGB 11.4 g/dL (13.5-17.5); Immature Grans % 0.2; MCH 32.2 pg (27.0-33.0); MCHC 31.6 % (32.0-36.0); MPV 11.7 fL (8.0-11.0); Monocytes % 8.1; Neutrophils % 71.2; Nucleated RBC 0 %; Platelet Count 59 10^3/uL (130-400); RBC 3.54 10^6/uL (4.36-5.78); RDW 14.8 % (11.8-14.1); RDW-SD 55.8 fL; WBC 5.07 10^3/uL (4.4-10.8)
[2020-09-19 07:33] LABS: Estimated GFR 34.03 (mL/min/1.73m2)
[2020-09-19 07:52] LABS: Iron 66 ug/dL (65-175); Total Iron Binding Capacity 266 ug/dL (250-450); Transferrin Sat 25 % (20-55)
[2020-09-19] MEDS: Normal Saline Flush 10 ML SYR IVP (08:00)
[2020-09-19] MEDS: Heparin 500 UNITS/5 ML SYRINGE IV (08:00)
[2020-09-19] MEDS: IRON SUCROSE COMPLEX 300 MG in Normal Saline 250 ML 176.667 MG IVPB (08:16)
[2020-10-04] MEDS: Normal Saline Flush 10 ML SYR IVP ×2 (07:00→07:47)
[2020-10-04 07:07] LABS: Abs Immature Grans 0.01 10^3/uL (0.0-0.06); Absolute Basophil Count 0.04 10^3/uL (0.0-0.2); Absolute Eosinophil Count 0.56 10^3/uL (0.0-0.7); Absolute Lymphocyte Count 0.58 10^3/uL (1.2-3.4); Absolute Neutrophil Count 3.67 10^3/uL (1.2-6.7); Basophils % 0.8; Eosinophils % 10.6; HCT 37.7 % (40.0-50.0); HGB 12.1 g/dL (13.5-17.5); Immature Grans % 0.2; MCHC 32.1 % (32.0-36.0); MCV 102.7 fL (80-95); MPV 11.9 fL (8.0-11.0); Monocytes % 7.6; Neutrophils % 69.8; Nucleated RBC 0 %; RBC 3.67 10^6/uL (4.36-5.78); RDW 14.5 % (11.8-14.1); WBC 5.26 10^3/uL (4.4-10.8)
[2020-10-04 07:14] LABS: C-Reactive Protein 1.18 mg/dL (0.0-0.3); CREATININE 1.9 mg/dL (0.70-1.30)
[2020-10-04 07:33] LABS: Platelet Count 63 10^3/uL (130-400)
[2020-10-04 07:34] LABS: Diff Comment Diff Reviewed; RBC Morphology Normal
[2020-10-04 07:54] VITALS: BP 122/75; PULSE 64; RESP 16; TEMP 37.2; O2SAT 99
[2020-10-04 08:25] VITALS: BP 135/77; PULSE 65; RESP 16; TEMP 37; O2SAT 99
[2020-10-04] MEDS: IMMUNE GLOBULIN 5 GM/50 ML BTL IVPB (08:26)
[2020-10-04 08:40] VITALS: BP 138/82; PULSE 64; RESP 16; TEMP 37.2; O2SAT 99
[2020-10-04] MEDS: IMMUNE GLOBULIN 10 GM/100 ML BTL IVPB (08:46)
[2020-10-04 09:10] VITALS: BP 126/78; PULSE 62; RESP 16; TEMP 37; O2SAT 99
[2020-10-04] MEDS: IMMUNE GLOBULIN 40 GM/400 ML BTL IVPB ×3 (09:12→11:00)
[2020-10-04 09:40] VITALS: BP 133/79; PULSE 62; RESP 18; TEMP 37; O2SAT 99
[2020-10-04 10:10] VITALS: BP 139/72; PULSE 64; RESP 16; TEMP 37.1; O2SAT 98
[2020-10-05] MEDS: Heparin 500 UNITS/5 ML SYRINGE IV ×2 (07:03→07:33)
[2020-10-05] MEDS: Normal Saline Flush 10 ML SYR IVP ×2 (07:03→07:33)
[2020-10-05 07:15] VITALS: BP 155/78; PULSE 62; RESP 17; TEMP 36.3; O2SAT 98
[2020-10-05 07:30] VITALS: BP 147/82; PULSE 69; RESP 18; TEMP 36.3; O2SAT 98
[2020-10-05] MEDS: IMMUNE GLOBULIN 5 GM/50 ML BTL 1.35 GM IVPB (07:32)
[2020-10-05 07:48] VITALS: BP 146/73; PULSE 65; RESP 16; TEMP 37.1; O2SAT 99
[2020-10-05] MEDS: IMMUNE GLOBULIN 10 GM/100 ML BTL IVPB (07:55)
[2020-10-05 08:15] VITALS: BP 128/68; PULSE 65; RESP 16; TEMP 37; O2SAT 99
[2020-10-05] MEDS: IMMUNE GLOBULIN 40 GM/400 ML BTL IVPB ×3 (08:21→10:15)
[2020-10-05 08:45] VITALS: BP 144/75; PULSE 60; RESP 16; TEMP 36.9; O2SAT 98
[2020-10-05 09:15] VITALS: BP 133/77; PULSE 61; RESP 18; TEMP 36.8; O2SAT 98
== END 2020-10-07 23:59 | disposition home or self-care (01) ==
LOC: INF 03:17
PROVIDERS: PCP Family Medicine; Visit Provider Nurse Practitioner Adult Health
DX: D50.0 Iron deficiency anemia secondary to blood loss (chronic) (principal); N18.30 Chronic kidney disease, stage 3 unspecified; D63.1 Anemia in chronic kidney disease; M60.9 Myositis, unspecified; G72.9 Myopathy, unspecified; Z79.52 Long term (current) use of systemic steroids; Z45.2 Encounter for adjustment and management of vascular access device
CPT/HCPCS: 36591; 96365; 96366; 96372; 82565; 83540; 83550; 85025; 86140; J0881; J1459; J1756; J2930

== ENCOUNTER 2020-11-04 03:59 | Outpatient (RCR) | payer MEDICARE, SELFPAY ==
[2020-10-08 00:08] VITALS: BP 133/77; PULSE 61; RESP 18; TEMP 36.8
[2020-10-20 07:21] LABS: Abs Immature Grans 0.01 10^3/uL (0.0-0.06); Absolute Basophil Count 0.05 10^3/uL (0.0-0.2); Absolute Eosinophil Count 0.51 10^3/uL (0.0-0.7); Absolute Lymphocyte Count 0.55 10^3/uL (1.2-3.4); Absolute Monocyte Count 0.43 10^3/uL (0.1-0.8); Absolute Neutrophil Count 3.59 10^3/uL (1.2-6.7); Eosinophils % 9.9; HCT 36.8 % (40.0-50.0); HGB 11.6 g/dL (13.5-17.5); Immature Grans % 0.2; Lymphocytes % 10.7; MCH 31.7 pg (27.0-33.0); MCHC 31.5 % (32.0-36.0); MCV 100.5 fL (80-95); Monocytes % 8.4; Neutrophils % 69.8; Nucleated RBC 0 %; Platelet Count 67 10^3/uL (130-400); RBC 3.66 10^6/uL (4.36-5.78); RDW 14.5 % (11.8-14.1); RDW-SD 52.9 fL; WBC 5.14 10^3/uL (4.4-10.8)
[2020-10-20 07:31] LABS: CREATININE 1.8 mg/dL (0.70-1.30); Estimated GFR 38.42 (mL/min/1.73m2)
[2020-10-20] MEDS: Heparin 500 UNITS/5 ML SYRINGE IV (07:51)
[2020-10-20] MEDS: Normal Saline Flush 10 ML SYR IVP (07:51)
[2020-10-20 08:14] LABS: Iron 69 ug/dL (65-175); Total Iron Binding Capacity 259 ug/dL (250-450); Transferrin Sat 27 % (20-55)
[2020-10-20] MEDS: IRON SUCROSE COMPLEX 300 MG in Normal Saline 250 ML 176.667 MG IVPB (08:32)
[2020-11-03] MEDS: methylPREDNISolone SUCC 40 MG VIAL (07:00)
[2020-11-03] MEDS: Normal Saline Flush 10 ML SYR IVP ×2 (07:05→07:11)
[2020-11-03 07:15] LABS: Abs Immature Grans 0.01 10^3/uL (0.0-0.06); Absolute Basophil Count 0.05 10^3/uL (0.0-0.2); Absolute Eosinophil Count 0.48 10^3/uL (0.0-0.7); Absolute Monocyte Count 0.39 10^3/uL (0.1-0.8); Absolute Neutrophil Count 2.72 10^3/uL (1.2-6.7); Basophils % 1.2; Eosinophils % 11.3; HCT 37.5 % (40.0-50.0); HGB 12.1 g/dL (13.5-17.5); Immature Grans % 0.2; Lymphocytes % 14.1; MCH 32.1 pg (27.0-33.0); MCHC 32.3 % (32.0-36.0); MCV 99.5 fL (80-95); MPV 11.4 fL (8.0-11.0); Monocytes % 9.2; Nucleated RBC 0 %; RBC 3.77 10^6/uL (4.36-5.78); RDW 14.8 % (11.8-14.1); RDW-SD 54.4 fL; WBC 4.25 10^3/uL (4.4-10.8)
[2020-11-03 07:26] LABS: CREATININE 1.8 mg/dL (0.70-1.30); Creatine Kinase 84 U/L (39-308); Estimated GFR 38.42 (mL/min/1.73m2)
[2020-11-03 07:40] LABS: Platelet Count 61 10^3/uL (130-400)
[2020-11-03] MEDS: IMMUNE GLOBULIN 5 GM/50 ML BTL IVPB (07:40)
[2020-11-03 07:41] LABS: Basophilic Stippling Present; Diff Comment Diff Reviewed
[2020-11-03 07:45] VITALS: BP 120/68; PULSE 61; RESP 16; TEMP 37.1; O2SAT 98
[2020-11-03 08:00] VITALS: BP 110/69; PULSE 61; RESP 16; TEMP 37; O2SAT 99
[2020-11-03] MEDS: IMMUNE GLOBULIN 10 GM/100 ML BTL IVPB (08:09)
[2020-11-03 08:15] VITALS: BP 111/69; PULSE 62; RESP 16; TEMP 37; O2SAT 98
[2020-11-03 08:30] VITALS: BP 134/78; PULSE 63; RESP 16; TEMP 37; O2SAT 98
[2020-11-03] MEDS: IMMUNE GLOBULIN 40 GM/400 ML BTL IVPB (08:33)
[2020-11-03 09:20] VITALS: BP 134/80; PULSE 64; RESP 16; TEMP 37.1; O2SAT 98
[2020-11-04] MEDS: Heparin 500 UNITS/5 ML SYRINGE IV (07:12)
[2020-11-04] MEDS: Normal Saline Flush 10 ML SYR IVP (07:12)
[2020-11-04] MEDS: IMMUNE GLOBULIN 5 GM/50 ML BTL 1.35 GM IVPB (07:12)
[2020-11-04 07:15] VITALS: BP 146/72; PULSE 65; RESP 17; TEMP 36.3; O2SAT 99
[2020-11-04 07:30] VITALS: BP 131/72; PULSE 62; RESP 17; TEMP 36; O2SAT 98
[2020-11-04] MEDS: IMMUNE GLOBULIN 10 GM/100 ML BTL 2.7 GM IVPB (07:35)
[2020-11-04 07:45] VITALS: BP 136/69; PULSE 60; RESP 16; TEMP 36.2; O2SAT 98
[2020-11-04] MEDS: IMMUNE GLOBULIN 40 GM/400 ML BTL IVPB (08:06)
[2020-11-04 08:16] VITALS: BP 129/72; PULSE 57; RESP 16; TEMP 36; O2SAT 99
[2020-11-04 08:52] VITALS: BP 134/74; PULSE 61; RESP 16; TEMP 35.8; O2SAT 99
== END 2020-11-07 23:59 | disposition home or self-care (01) ==
LOC: INF 03:59
PROVIDERS: PCP Family Medicine; Visit Provider Nurse Practitioner Adult Health
DX: D50.0 Iron deficiency anemia secondary to blood loss (chronic) (principal); N18.30 Chronic kidney disease, stage 3 unspecified; D63.1 Anemia in chronic kidney disease; M60.9 Myositis, unspecified; G72.0 Drug-induced myopathy; Z45.2 Encounter for adjustment and management of vascular access device; Z79.52 Long term (current) use of systemic steroids
CPT/HCPCS: 36591; 82550; 96365; 96366; 96372; 96374; 96375; 82565; 83540; 83550; 85025; 86140; J0881; J1459; J1756

== ENCOUNTER 2020-12-02 05:05 | Outpatient (RCR) | payer MEDICARE, SELFPAY ==
[2020-11-08 00:16] VITALS: BP 134/74; PULSE 61; RESP 16; TEMP 35.8
[2020-11-15] MEDS: Heparin 500 UNITS/5 ML SYRINGE IV (07:04)
[2020-11-15] MEDS: Normal Saline Flush 10 ML SYR IVP (07:04)
[2020-11-15 07:22] LABS: Abs Immature Grans 0.02 10^3/uL (0.0-0.06); Absolute Basophil Count 0.05 10^3/uL (0.0-0.2); Absolute Eosinophil Count 0.34 10^3/uL (0.0-0.7); Absolute Monocyte Count 0.37 10^3/uL (0.1-0.8); Absolute Neutrophil Count 2.46 10^3/uL (1.2-6.7); Basophils % 1.3; Eosinophils % 8.9; HCT 35.6 % (40.0-50.0); HGB 11.4 g/dL (13.5-17.5); Immature Grans % 0.5; Lymphocytes % 15.6; MCH 32.2 pg (27.0-33.0); MCV 100.6 fL (80-95); MPV 12.3 fL (8.0-11.0); Monocytes % 9.6; Neutrophils % 64.1; Nucleated RBC 0 %; Platelet Count 59 10^3/uL (130-400); RBC 3.54 10^6/uL (4.36-5.78); RDW 14.8 % (11.8-14.1); RDW-SD 55.9 fL; WBC 3.84 10^3/uL (4.4-10.8)
[2020-11-15 07:25] LABS: Estimated GFR 34.03 (mL/min/1.73m2)
[2020-11-15 08:57] LABS: Iron 63 ug/dL (65-175); Total Iron Binding Capacity 237 ug/dL (250-450); Transferrin Sat 27 % (20-55)
[2020-11-15] MEDS: IRON SUCROSE COMPLEX 300 MG in Normal Saline 250 ML 176.667 MG IVPB (09:21)
[2020-12-01] MEDS: Normal Saline Flush 10 ML SYR IVP (07:12)
[2020-12-01] MEDS: methylPREDNISolone SUCC 40 MG VIAL 30 MG IVP (07:17)
[2020-12-01] MEDS: IMMUNE GLOBULIN 5 GM/50 ML BTL IVPB (07:23)
[2020-12-01 07:25] VITALS: BP 146/78; PULSE 65; RESP 18; TEMP 37; O2SAT 100
[2020-12-01 07:28] LABS: Abs Immature Grans 0.01 10^3/uL (0.0-0.06); Absolute Basophil Count 0.06 10^3/uL (0.0-0.2); Absolute Eosinophil Count 0.52 10^3/uL (0.0-0.7); Absolute Lymphocyte Count 0.56 10^3/uL (1.2-3.4); Absolute Monocyte Count 0.35 10^3/uL (0.1-0.8); Absolute Neutrophil Count 2.76 10^3/uL (1.2-6.7); Basophils % 1.4; Eosinophils % 12.2; HCT 37.9 % (40.0-50.0); HGB 11.9 g/dL (13.5-17.5); Immature Grans % 0.2; Lymphocytes % 13.1; MCH 31.9 pg (27.0-33.0); MCHC 31.4 % (32.0-36.0); MCV 101.6 fL (80-95); MPV 11.9 fL (8.0-11.0); Monocytes % 8.2; Neutrophils % 64.9; Nucleated RBC 0 %; RBC 3.73 10^6/uL (4.36-5.78); RDW 15.1 % (11.8-14.1); RDW-SD 57.3 fL; WBC 4.26 10^3/uL (4.4-10.8)
[2020-12-01 07:41] LABS: C-Reactive Protein 0.89 mg/dL (0.0-0.3); CREATININE 1.8 mg/dL (0.70-1.30); Creatine Kinase 94 U/L (39-308); Estimated GFR 38.42 (mL/min/1.73m2)
[2020-12-01 07:45] LABS: Platelet Count 61 10^3/uL (130-400)
[2020-12-01] MEDS: IMMUNE GLOBULIN 10 GM/100 ML BTL IVPB (07:50)
[2020-12-01 08:20] VITALS: BP 120/73; PULSE 58; RESP 16; TEMP 37.1; O2SAT 99
[2020-12-01] MEDS: IMMUNE GLOBULIN 40 GM/400 ML BTL IVPB ×3 (08:20→10:15)
[2020-12-01 08:55] VITALS: BP 138/80; PULSE 60; RESP 16; TEMP 37; O2SAT 100
[2020-12-01 09:20] VITALS: BP 146/88; PULSE 61; RESP 16; TEMP 36.9; O2SAT 99
[2020-12-02] MEDS: Normal Saline Flush 10 ML SYR IVP (07:11)
[2020-12-02] MEDS: Heparin 500 UNITS/5 ML SYRINGE IV (07:12)
[2020-12-02] MEDS: IMMUNE GLOBULIN 5 GM/50 ML BTL IVPB (07:25)
[2020-12-02 07:30] VITALS: BP 119/68; PULSE 59; RESP 16; TEMP 37; O2SAT 98
[2020-12-02 07:45] VITALS: BP 118/69; PULSE 59; RESP 16; TEMP 37; O2SAT 99
[2020-12-02] MEDS: IMMUNE GLOBULIN 10 GM/100 ML BTL IVPB (07:49)
[2020-12-02 08:15] VITALS: BP 119/71; PULSE 58; RESP 16; TEMP 37; O2SAT 100
[2020-12-02] MEDS: IMMUNE GLOBULIN 40 GM/400 ML BTL IVPB ×3 (08:17→10:00)
[2020-12-02 08:45] VITALS: BP 126/75; PULSE 53; RESP 16; TEMP 36.9; O2SAT 98
[2020-12-02 09:15] VITALS: BP 133/73; PULSE 56; RESP 16; TEMP 37; O2SAT 99
== END 2020-12-07 23:59 | disposition home or self-care (01) ==
LOC: INF 05:05
PROVIDERS: PCP Family Medicine; Visit Provider Nurse Practitioner Adult Health
DX: D50.0 Iron deficiency anemia secondary to blood loss (chronic) (principal); N18.30 Chronic kidney disease, stage 3 unspecified; D63.1 Anemia in chronic kidney disease; M60.9 Myositis, unspecified; Z79.52 Long term (current) use of systemic steroids; Z45.2 Encounter for adjustment and management of vascular access device; G72.9 Myopathy, unspecified
CPT/HCPCS: 36591; 82550; 96365; 96366; 96372; 82565; 83540; 83550; 85025; 86140; J0881; J1459; J1756

== ENCOUNTER 2020-12-27 02:06 | Outpatient (RCR) | payer MEDICARE, SELFPAY ==
[2020-12-08 00:08] VITALS: BP 133/73; PULSE 56; RESP 16; TEMP 37
[2020-12-13] MEDS: Normal Saline Flush 10 ML SYR IVP (07:00)
[2020-12-13 07:05] LABS: Abs Immature Grans 0.01 10^3/uL (0.0-0.06); Absolute Basophil Count 0.05 10^3/uL (0.0-0.2); Absolute Eosinophil Count 0.43 10^3/uL (0.0-0.7); Absolute Lymphocyte Count 0.54 10^3/uL (1.2-3.4); Absolute Neutrophil Count 3.11 10^3/uL (1.2-6.7); Basophils % 1.1; Eosinophils % 9.5; HGB 11.4 g/dL (13.5-17.5); Immature Grans % 0.2; Lymphocytes % 11.9; MCHC 31.7 % (32.0-36.0); MCV 101.1 fL (80-95); MPV 10.9 fL (8.0-11.0); Monocytes % 8.8; Neutrophils % 68.5; Nucleated RBC 0 %; Platelet Count 67 10^3/uL (130-400); RBC 3.56 10^6/uL (4.36-5.78); RDW 15.7 % (11.8-14.1); RDW-SD 58.4 fL; WBC 4.54 10^3/uL (4.4-10.8)
[2020-12-13 07:21] LABS: Diff Comment Diff Reviewed; RBC Morphology Normal
[2020-12-13 07:33] LABS: CREATININE 1.7 mg/dL (0.70-1.30); Estimated GFR 41.04 (mL/min/1.73m2)
[2020-12-13 07:54] LABS: Iron 64 ug/dL (65-175); Total Iron Binding Capacity 253 ug/dL (250-450); Transferrin Sat 25 % (20-55)
[2020-12-13] MEDS: IRON SUCROSE COMPLEX 300 MG in Normal Saline 250 ML 176.667 MG IVPB (08:14)
[2020-12-26] MEDS: Normal Saline Flush 10 ML SYR IVP (07:23)
[2020-12-26] MEDS: IMMUNE GLOBULIN 5 GM/50 ML BTL 0.68 GM IVPB (07:23)
[2020-12-26 07:24] VITALS: BP 149/78; PULSE 71; RESP 18; TEMP 37.2; O2SAT 97
[2020-12-26 07:37] LABS: HCT 38.8 % (40.0-50.0); HGB 12.2 g/dL (13.5-17.5); MCH 31.9 pg (27.0-33.0); MCHC 31.4 % (32.0-36.0); MCV 101.6 fL (80-95); Platelet Count 71 10^3/uL (130-400); RBC 3.82 10^6/uL (4.36-5.78); RDW 15.1 % (11.8-14.1); RDW-SD 56.9 fL; WBC 4.56 10^3/uL (4.4-10.8)
[2020-12-26 07:40] VITALS: BP 112/66; PULSE 68; RESP 18; TEMP 37.2; O2SAT 98
[2020-12-26 07:53] LABS: C-Reactive Protein 1.02 mg/dL (0.0-0.3); CREATININE 1.7 mg/dL (0.70-1.30); Creatine Kinase 117 U/L (39-308); Estimated GFR 41.04 (mL/min/1.73m2)
[2020-12-26] MEDS: IMMUNE GLOBULIN 10 GM/100 ML BTL 2.7 GM IVPB (07:54)
[2020-12-26 07:55] VITALS: BP 124/70; PULSE 66; RESP 18; TEMP 37.2; O2SAT 99
[2020-12-26] MEDS: IMMUNE GLOBULIN 40 GM/400 ML BTL 4.05 GM IVPB ×3 (08:22→10:10)
[2020-12-26 08:25] VITALS: BP 145/79; PULSE 62; RESP 18; TEMP 37.1; O2SAT 99
[2020-12-26 09:05] VITALS: BP 155/80; PULSE 66; RESP 18; TEMP 37.1; O2SAT 99
[2020-12-26 10:00] VITALS: BP 159/88; PULSE 68; RESP 18; TEMP 37; O2SAT 99
[2020-12-26] MEDS: Heparin 500 UNITS/5 ML SYRINGE IV (11:11)
[2020-12-27 07:10] VITALS: BP 143/74; PULSE 72; RESP 20; TEMP 37.1; O2SAT 98
[2020-12-27] MEDS: Normal Saline Flush 10 ML SYR IVP (07:16)
[2020-12-27] MEDS: IMMUNE GLOBULIN 5 GM/50 ML BTL 0.68 GM IVPB (07:16)
[2020-12-27 07:35] VITALS: BP 120/72; PULSE 70; RESP 18; TEMP 37.2; O2SAT 100
[2020-12-27] MEDS: IMMUNE GLOBULIN 10 GM/100 ML BTL 2.7 GM IVPB (07:43)
[2020-12-27 07:50] VITALS: BP 133/74; PULSE 78; RESP 18; TEMP 37.1; O2SAT 96
[2020-12-27] MEDS: IMMUNE GLOBULIN 40 GM/400 ML BTL IVPB ×3 (08:10→09:55)
[2020-12-27 09:10] VITALS: BP 146/83; PULSE 68; RESP 18; TEMP 37.2; O2SAT 98
[2020-12-27 09:40] VITALS: BP 139/85; PULSE 65; RESP 18; TEMP 37.1; O2SAT 98
== END 2021-01-07 23:59 | disposition home or self-care (01) ==
LOC: INF 02:06
PROVIDERS: PCP Family Medicine; Visit Provider Nurse Practitioner Adult Health
DX: D50.0 Iron deficiency anemia secondary to blood loss (chronic) (principal); N18.30 Chronic kidney disease, stage 3 unspecified; D63.1 Anemia in chronic kidney disease; M60.9 Myositis, unspecified; Z79.52 Long term (current) use of systemic steroids; Z45.2 Encounter for adjustment and management of vascular access device; G72.9 Myopathy, unspecified
CPT/HCPCS: 36591; 82550; 85027; 96365; 96366; 96372; 82565; 83540; 83550; 85025; 86140; J0881; J1459; J1756

== ENCOUNTER 2021-02-06 02:48 | Outpatient (RCR) | payer MEDICARE, SELFPAY ==
[2021-01-09 07:34] LABS: Absolute Basophil Count 0.04 10^3/uL (0.0-0.2); Absolute Eosinophil Count 0.45 10^3/uL (0.0-0.7); Absolute Lymphocyte Count 0.53 10^3/uL (1.2-3.4); Absolute Monocyte Count 0.32 10^3/uL (0.1-0.8); Absolute Neutrophil Count 2.19 10^3/uL (1.2-6.7); Basophils % 1.1; Eosinophils % 12.7; HCT 35.3 % (40.0-50.0); HGB 11.2 g/dL (13.5-17.5); MCH 32.2 pg (27.0-33.0); MCHC 31.7 % (32.0-36.0); MCV 101.4 fL (80-95); Monocytes % 9.1; Neutrophils % 62.1; Nucleated RBC 0 %; Platelet Count 68 10^3/uL (130-400); RBC 3.48 10^6/uL (4.36-5.78); RDW 15.3 % (11.8-14.1); WBC 3.53 10^3/uL (4.4-10.8)
[2021-01-09 07:39] LABS: Estimated GFR 34.03 (mL/min/1.73m2)
[2021-01-09] MEDS: Heparin 500 UNITS/5 ML SYRINGE IV (07:41)
[2021-01-09] MEDS: Normal Saline Flush 10 ML SYR IVP (07:41)
[2021-01-09 07:48] LABS: Anisocytosis 1+; Diff Comment Diff Reviewed; Macrocytosis 1+
[2021-01-09 09:13] LABS: Iron 67 ug/dL (65-175); Total Iron Binding Capacity 237 ug/dL (250-450); Transferrin Sat 28 % (20-55)
[2021-01-09] MEDS: IRON SUCROSE COMPLEX 300 MG in Normal Saline 250 ML 176.667 MG IVPB (09:44)
[2021-01-23] VITALS (8 sets, daily range): BP systolic 101–132; BP diastolic 62–80; PULSE 60–63; RESP 16–17; TEMP 36.8–37.1; O2SAT 96–100
[2021-01-23] MEDS: Normal Saline Flush 10 ML SYR IVP (07:23)
[2021-01-23] MEDS: IMMUNE GLOBULIN 5 GM/50 ML BTL IVPB (07:35)
[2021-01-23 07:36] LABS: Abs Immature Grans 0.01 10^3/uL (0.0-0.06); Absolute Basophil Count 0.05 10^3/uL (0.0-0.2); Absolute Eosinophil Count 0.52 10^3/uL (0.0-0.7); Absolute Monocyte Count 0.35 10^3/uL (0.1-0.8); Absolute Neutrophil Count 2.96 10^3/uL (1.2-6.7); Basophils % 1.1; Eosinophils % 11.8; HCT 36.3 % (40.0-50.0); HGB 11.3 g/dL (13.5-17.5); Immature Grans % 0.2; Lymphocytes % 11.4; MCH 32.4 pg (27.0-33.0); MCHC 31.1 % (32.0-36.0); MPV 11.8 fL (8.0-11.0); Neutrophils % 67.5; Nucleated RBC 0 %; RBC 3.49 10^6/uL (4.36-5.78); RDW 15.4 % (11.8-14.1); RDW-SD 59.1 fL; WBC 4.39 10^3/uL (4.4-10.8)
[2021-01-23 07:49] LABS: CREATININE 1.8 mg/dL (0.70-1.30); Creatine Kinase 119 U/L (39-308); Estimated GFR 38.42 (mL/min/1.73m2)
[2021-01-23 07:52] LABS: Diff Comment Diff Reviewed; Platelet Count 60 10^3/uL (130-400); RBC Morphology Normal
[2021-01-23] MEDS: IMMUNE GLOBULIN 10 GM/100 ML BTL IVPB (07:59)
[2021-01-23] MEDS: IMMUNE GLOBULIN 40 GM/400 ML BTL 4.05 GM IVPB ×2 (08:25→09:24)
[2021-01-23] MEDS: IMMUNE GLOBULIN 40 GM/400 ML BTL IVPB (10:14)
[2021-01-23] MEDS: Heparin 500 UNITS/5 ML SYRINGE IV (12:11)
[2021-01-24 07:18] VITALS: BP 115/68; PULSE 64; RESP 17; TEMP 37.1; O2SAT 98
[2021-01-24] MEDS: Heparin 500 UNITS/5 ML SYRINGE IV (07:31)
[2021-01-24] MEDS: Normal Saline Flush 10 ML SYR IVP (07:31)
[2021-01-24] MEDS: IMMUNE GLOBULIN 5 GM/50 ML BTL IVPB (07:32)
[2021-01-24 07:45] VITALS: BP 120/70; PULSE 63; RESP 17; TEMP 37.1; O2SAT 98
[2021-01-24] MEDS: IMMUNE GLOBULIN 10 GM/100 ML BTL IVPB (07:51)
[2021-01-24 08:00] VITALS: BP 114/68; PULSE 64; RESP 17; TEMP 37.1; O2SAT 97
[2021-01-24] MEDS: IMMUNE GLOBULIN 40 GM/400 ML BTL IVPB ×3 (08:20→09:40)
[2021-01-24 08:35] VITALS: BP 128/76; PULSE 62; RESP 16; TEMP 36.9; O2SAT 97
[2021-01-24 09:05] VITALS: BP 138/80; PULSE 64; RESP 16; TEMP 37.1; O2SAT 97
[2021-01-24 09:35] VITALS: BP 138/85; PULSE 62; RESP 16; TEMP 36.8; O2SAT 100
[2021-02-06] MEDS: Normal Saline Flush 10 ML SYR IVP (07:26)
[2021-02-06] MEDS: Heparin 500 UNITS/5 ML SYRINGE IV (07:26)
[2021-02-06 07:45] LABS: Absolute Basophil Count 0.05 10^3/uL (0.0-0.2); Absolute Eosinophil Count 0.44 10^3/uL (0.0-0.7); Absolute Lymphocyte Count 0.47 10^3/uL (1.2-3.4); Absolute Monocyte Count 0.33 10^3/uL (0.1-0.8); Basophils % 1.3; Eosinophils % 11.6; HCT 35.6 % (40.0-50.0); HGB 11.3 g/dL (13.5-17.5); Lymphocytes % 12.4; MCH 32.8 pg (27.0-33.0); MCHC 31.7 % (32.0-36.0); MCV 103.5 fL (80-95); MPV 11.9 fL (8.0-11.0); Monocytes % 8.7; Nucleated RBC 0 %; RBC 3.44 10^6/uL (4.36-5.78); RDW 15.6 % (11.8-14.1); RDW-SD 59.7 fL; WBC 3.79 10^3/uL (4.4-10.8)
[2021-02-06 07:53] LABS: CREATININE 1.9 mg/dL (0.70-1.30)
[2021-02-06 08:11] LABS: Platelet Count 64 10^3/uL (130-400)
[2021-02-06 08:32] LABS: Iron 59 ug/dL (65-175); Total Iron Binding Capacity 242 ug/dL (250-450); Transferrin Sat 24 % (20-55)
[2021-02-06] MEDS: IRON SUCROSE COMPLEX 300 MG in Normal Saline 250 ML 176.667 MG IVPB (09:03)
== END 2021-02-07 23:59 | disposition home or self-care (01) ==
LOC: INF 02:48
PROVIDERS: Nurse Practitioner Adult Health; PCP Family Medicine; Visit Provider Family Medicine
DX: D50.9 Iron deficiency anemia, unspecified (principal); D63.1 Anemia in chronic kidney disease; N18.30 Chronic kidney disease, stage 3 unspecified; G72.9 Myopathy, unspecified; M60.9 Myositis, unspecified; Z79.52 Long term (current) use of systemic steroids; Z45.2 Encounter for adjustment and management of vascular access device
CPT/HCPCS: 36591; 82550; 96365; 96366; 96372; 82565; 83540; 83550; 85025; 86140; J0881; J1459; J1756

== ENCOUNTER 2021-02-10 12:19 | Outpatient (REF) | payer MEDICARE, SELFPAY ==
--- NOTE | 2021-02-10 10:40 | SKI_PTH ---
PATIENT: Bucky Acevedo LOC: [facility] U#:[id number] AGE/SX: 60/M ROOM: RE02/10/[address]: LUDA Kim : 1960 BED: DIS: 02/10/2021 SPEC #: [id number] RECD: 02/14/21 08:19 STATUS: CLAUDIA REQ #: [id number] JAGDISH: 02/10/21 10:[address]: Nile Naik DEPT: Surgical Specimen RECD BY: Makayla Jones ENTERED: 02/14/21 08:20 SP TYPE: SKI OTHR DR: Jazmine Baer V Tissues: 1 - SKIN BIOPSY(SHAVE/PUNCH) Procedures: SKIN LEVEL 4 Comments: [id number]
== END 2021-02-10 12:20 | disposition home or self-care (01) ==
LOC: LBN 12:19
PROVIDERS: PCP Family Medicine; Visit Provider Physician Assistant
DX: C44.319 Basal cell carcinoma of skin of other parts of face (principal)
CPT/HCPCS: 88305

== ENCOUNTER 2021-03-06 02:39 | Outpatient (RCR) | payer MEDICARE, SELFPAY ==
[2021-02-08 00:16] VITALS: BP 138/85; PULSE 62; RESP 16; TEMP 36.8
[2021-02-20] MEDS: Normal Saline Flush 10 ML SYR IVP ×2 (07:37→09:11)
[2021-02-20] MEDS: IMMUNE GLOBULIN 5 GM/50 ML BTL IVPB (07:37)
[2021-02-20 07:41] VITALS: BP 129/66; PULSE 70; RESP 21; TEMP 37.1; O2SAT 98
[2021-02-20 07:41] LABS: HCT 37.5 % (40.0-50.0); HGB 11.9 g/dL (13.5-17.5); MCH 33.4 pg (27.0-33.0); MCHC 31.7 % (32.0-36.0); MCV 105.3 fL (80-95); MPV 11.2 fL (8.0-11.0); RBC 3.56 10^6/uL (4.36-5.78); RDW 15.7 % (11.8-14.1); WBC 4.55 10^3/uL (4.4-10.8)
[2021-02-20 07:59] LABS: Platelet Count 64 10^3/uL (130-400)
[2021-02-20] MEDS: IMMUNE GLOBULIN 10 GM/100 ML BTL IVPB (08:06)
[2021-02-20 08:07] LABS: C-Reactive Protein 1.41 mg/dL (0.0-0.3); CREATININE 1.8 mg/dL (0.70-1.30); Creatine Kinase 205 U/L (39-308); Estimated GFR 38.42 (mL/min/1.73m2)
[2021-02-20 08:20] VITALS: BP 135/76; PULSE 65; RESP 18; TEMP 37.1; O2SAT 99
[2021-02-20] MEDS: IMMUNE GLOBULIN 40 GM/400 ML BTL IVPB ×3 (08:35→10:28)
[2021-02-20 08:50] VITALS: BP 131/75; PULSE 62; RESP 18; TEMP 36.7; O2SAT 98
[2021-02-20 08:55] VITALS: BP 127/72; PULSE 64; RESP 17; TEMP 37; O2SAT 96
[2021-02-20 09:25] VITALS: BP 139/78; PULSE 61; RESP 18; TEMP 36.6; O2SAT 99
[2021-02-21] MEDS: IMMUNE GLOBULIN 5 GM/50 ML BTL IVPB (07:13)
[2021-02-21 07:36] VITALS: BP 138/79; PULSE 73; RESP 19; TEMP 37.1; O2SAT 97
[2021-02-21] MEDS: IMMUNE GLOBULIN 10 GM/100 ML BTL IVPB (07:45)
[2021-02-21 07:51] VITALS: BP 125/74; PULSE 78; RESP 22; TEMP 36.7; O2SAT 94
[2021-02-21] MEDS: IMMUNE GLOBULIN 40 GM/400 ML BTL IVPB ×3 (08:24→10:07)
[2021-02-21 08:30] VITALS: BP 134/78; PULSE 75; RESP 22; TEMP 36.8; O2SAT 98
[2021-02-21 09:03] VITALS: BP 142/78; PULSE 70; RESP 22; TEMP 36.7; O2SAT 99
[2021-02-21 09:35] VITALS: BP 155/88; PULSE 67; RESP 20; TEMP 36.9; O2SAT 97
[2021-02-21] MEDS: Heparin 500 UNITS/5 ML SYRINGE IV (10:30)
[2021-03-06] MEDS: Normal Saline Flush 10 ML SYR IVP (07:13)
[2021-03-06] MEDS: Heparin 500 UNITS/5 ML SYRINGE IV (07:14)
[2021-03-06 07:30] LABS: Abs Immature Grans 0.01 10^3/uL (0.0-0.06); Absolute Basophil Count 0.04 10^3/uL (0.0-0.2); Absolute Eosinophil Count 0.28 10^3/uL (0.0-0.7); Absolute Lymphocyte Count 0.43 10^3/uL (1.2-3.4); Absolute Monocyte Count 0.33 10^3/uL (0.1-0.8); Absolute Neutrophil Count 2.56 10^3/uL (1.2-6.7); Basophils % 1.1; Eosinophils % 7.7; HCT 37.9 % (40.0-50.0); HGB 11.8 g/dL (13.5-17.5); Immature Grans % 0.3; Lymphocytes % 11.8; MCH 32.5 pg (27.0-33.0); MCHC 31.1 % (32.0-36.0); MCV 104.4 fL (80-95); MPV 11.5 fL (8.0-11.0); Neutrophils % 70.1; Nucleated RBC 0 %; RBC 3.63 10^6/uL (4.36-5.78); RDW 15.4 % (11.8-14.1); RDW-SD 59.7 fL; WBC 3.65 10^3/uL (4.4-10.8)
[2021-03-06 07:33] LABS: CREATININE 1.8 mg/dL (0.70-1.30); Estimated GFR 38.42 (mL/min/1.73m2)
[2021-03-06 07:55] LABS: Platelet Count 64 10^3/uL (130-400)
[2021-03-06 08:03] LABS: Iron 71 ug/dL (65-175); Total Iron Binding Capacity 267 ug/dL (250-450); Transferrin Sat 27 % (20-55)
[2021-03-06] MEDS: IRON SUCROSE COMPLEX 300 MG in Normal Saline 250 ML 176.667 MG IVPB (08:29)
== END 2021-03-09 23:59 | disposition home or self-care (01) ==
LOC: INF 02:39
PROVIDERS: Nurse Practitioner Adult Health; PCP Family Medicine; Visit Provider Family Medicine
DX: D50.0 Iron deficiency anemia secondary to blood loss (chronic) (principal); D63.1 Anemia in chronic kidney disease; G72.9 Myopathy, unspecified; Z79.52 Long term (current) use of systemic steroids; N18.30 Chronic kidney disease, stage 3 unspecified; M60.9 Myositis, unspecified; Z45.2 Encounter for adjustment and management of vascular access device
CPT/HCPCS: 36591; 82550; 85027; 96365; 96366; 96372; 82565; 83540; 83550; 85025; 86140; J0881; J1459; J1756

== ENCOUNTER 2021-04-06 01:43 | Outpatient (RCR) | payer MEDICARE, SELFPAY ==
[2021-03-10 00:23] VITALS: BP 155/88; PULSE 67; RESP 20; TEMP 36.9
[2021-03-20 07:25] VITALS: BP 127/70; PULSE 68; RESP 20; TEMP 36.1; O2SAT 98
[2021-03-20] MEDS: IMMUNE GLOBULIN 5 GM/50 ML BTL IVPB (07:25)
[2021-03-20] MEDS: Normal Saline Flush 10 ML SYR IVP (07:31)
[2021-03-20 07:40] VITALS: BP 117/70; PULSE 66; RESP 20; TEMP 35.7; O2SAT 96
[2021-03-20] MEDS: IMMUNE GLOBULIN 10 GM/100 ML BTL IVPB (07:51)
[2021-03-20 07:54] LABS: C-Reactive Protein 0.97 mg/dL (0.0-0.3); Creatine Kinase 313 U/L (39-308); Estimated GFR 34.03 (mL/min/1.73m2)
[2021-03-20 07:55] LABS: HCT 40.9 % (40.0-50.0); HGB 12.4 g/dL (13.5-17.5); MCH 32.6 pg (27.0-33.0); MCHC 30.3 % (32.0-36.0); MCV 107.6 fL (80-95); MPV 12.3 fL (8.0-11.0); Platelet Count 62 10^3/uL (130-400); RDW 15.7 % (11.8-14.1); RDW-SD 63.2 fL; WBC 5.55 10^3/uL (4.4-10.8)
[2021-03-20 08:00] VITALS: BP 115/72; PULSE 62; RESP 20; TEMP 37.4; O2SAT 98
[2021-03-20] MEDS: IMMUNE GLOBULIN 40 GM/400 ML BTL IVPB ×3 (08:23→10:07)
[2021-03-20 08:30] VITALS: BP 114/72; PULSE 61; RESP 20; TEMP 37.3; O2SAT 98
[2021-03-20 09:00] VITALS: BP 127/75; PULSE 61; RESP 20; TEMP 37.1; O2SAT 99
[2021-03-20 09:43] VITALS: BP 156/64; PULSE 75; RESP 20; TEMP 36.8; O2SAT 95
[2021-03-20] MEDS: Heparin 500 UNITS/5 ML SYRINGE IV (11:03)
[2021-03-21] VITALS (7 sets, daily range): BP systolic 103–136; BP diastolic 59–81; PULSE 59–67; RESP 17–20; TEMP 36.4–36.7; O2SAT 97–98
[2021-03-21] MEDS: Normal Saline Flush 10 ML SYR IVP (07:18)
[2021-03-21] MEDS: Heparin 500 UNITS/5 ML SYRINGE IV (07:18)
[2021-03-21] MEDS: IMMUNE GLOBULIN 5 GM/50 ML BTL IVPB (07:45)
[2021-03-21] MEDS: IMMUNE GLOBULIN 10 GM/100 ML BTL IVPB (08:06)
[2021-03-21] MEDS: IMMUNE GLOBULIN 40 GM/400 ML BTL IVPB ×3 (08:34→10:10)
[2021-04-04] MEDS: Heparin 500 UNITS/5 ML SYRINGE IV (07:15)
[2021-04-04] MEDS: Normal Saline Flush 10 ML SYR IVP (07:15)
[2021-04-04 07:33] LABS: Abs Immature Grans 0.01 10^3/uL (0.0-0.06); Absolute Basophil Count 0.05 10^3/uL (0.0-0.2); Absolute Eosinophil Count 0.41 10^3/uL (0.0-0.7); Absolute Lymphocyte Count 0.45 10^3/uL (1.2-3.4); Absolute Monocyte Count 0.36 10^3/uL (0.1-0.8); Absolute Neutrophil Count 2.69 10^3/uL (1.2-6.7); Basophils % 1.3; Eosinophils % 10.3; HCT 37.4 % (40.0-50.0); HGB 11.7 g/dL (13.5-17.5); Immature Grans % 0.3; Lymphocytes % 11.3; MCH 33.2 pg (27.0-33.0); MCHC 31.3 % (32.0-36.0); MCV 106.3 fL (80-95); MPV 11.2 fL (8.0-11.0); Monocytes % 9.1; Neutrophils % 67.7; Nucleated RBC 0 %; RBC 3.52 10^6/uL (4.36-5.78); RDW 15.9 % (11.8-14.1); RDW-SD 62.6 fL; WBC 3.97 10^3/uL (4.4-10.8)
[2021-04-04 07:42] LABS: CREATININE 1.8 mg/dL (0.70-1.30)
[2021-04-04 08:02] LABS: Iron 81 ug/dL (65-175); Total Iron Binding Capacity 255 ug/dL (250-450); Transferrin Sat 32 % (20-55)
[2021-04-04 08:14] LABS: Diff Comment RBC Morph Reviewed; Platelet Count 63 10^3/uL (130-400)
[2021-04-04 08:15] LABS: Macrocytosis 1+
== END 2021-04-09 23:59 | disposition home or self-care (01) ==
LOC: INF 01:43
PROVIDERS: Nurse Practitioner Adult Health; PCP Family Medicine; Visit Provider Family Medicine
DX: D50.0 Iron deficiency anemia secondary to blood loss (chronic) (principal); N18.30 Chronic kidney disease, stage 3 unspecified; D63.1 Anemia in chronic kidney disease; M60.9 Myositis, unspecified; Z79.52 Long term (current) use of systemic steroids; Z45.2 Encounter for adjustment and management of vascular access device; G72.9 Myopathy, unspecified
CPT/HCPCS: 36591; 82533; 82550; 85027; 96365; 96366; 96372; 82565; 83540; 83550; 85025; 86140; J0881; J1459

== ENCOUNTER 2021-04-10 10:14 | Observation (INO) | payer MEDICARE, SELFPAY ==
[2021-04-10] VITALS (39 sets, daily range): BP systolic 115–164; BP diastolic 70–86; PULSE 71–83; RESP 11–24; TEMP 36.4–36.9; O2SAT 95–99
--- NOTE | 2021-04-10 10:26 | W.ED.GENAD ---
Discharge Plan Discharge Details Chief Complaint: CVA/TIA Admit Date/Time: 04/10/21 19:13 Admit Provider: Chris Rossi Attending Provider: Chris Rossi Primary Care Provider: Jazmine Baer V ED Provider: Tayla Santana Discharge Data Discharge Date/Time-TO BE ENTERED AT DEPARTURE: 04/10/21 20:23 Medical Decision Making <LUDA Paniagua - Last Filed: 04/11/21 08:01> 61-year-old gentleman, past medical history of obesity, diabetes, hypertension, myositis, presents to the ER for evaluation of slurred speech and weakness yesterday, now with generalized weakness. Clinically he appears well, nontoxic, neurologically intact. Will initiate a cardiac-CVA work-up including a stroke protocol CT. Initial laboratory values reveal a white blood cell count of 4.57, hemoglobin hematocrit revealed anemia but appears to be baseline, platelet count of 68 10 which is also baseline. Sodium 142 potassium 4.2 creatinine 1.7 with a GFR of 40.91 calcium 8.7 magnesium 1.7 troponin of 0.73 urinalysis negative for infection. CT imaging of the head read by radiology is unremarkable, will obtain MRI and MRA. Patient now tells me that the swelling in his legs is worse than usual, adding on a BNP. MRI and MRA are unremarkable for acute process. Patient will likely require admission to our facility if troponin is unchanged, otherwise potential transfer if troponin is trending upward. He denies any chest pain or shortness of breath whatsoever. BNP over 7000, given his renal status will give 40 IV Lasix Patient also be noted that when the patient presented today his glucose was 60 although he was essentially asymptomatic. I did question if he could have been hypoglycemic last night causing the symptoms in the first place. He was given orange juice and crackers, glucose came up to 85. Checked an hour later and was down to 65 and he remained asymptomatic. Patient ate lunch turkey sandwich, glucose now at 96 and he remains asymptomatic Medical Records Medical records reviewed: Yes I reviewed the patient's medical records. Imaging Data Radiologic Study: Attestation: I personally reviewed and interpreted this imaging study as follows: Imaging: CT Scan Radiologist's impression: Exam(s) CT HEAD - STROKE PROTOCOL EXAM: CT HEAD - STROKE PROTOCOL CLINICAL HISTORY: Slurred speech, weakness. TECHNIQUE: Imaging Protocol: Axial computed tomography images with coronal and sagittal reformatted images were created and reviewed COMPARISON: No exams were available for comparison FINDINGS: There are no skull fractures. Mucosal thickening is noted in both maxillary sinuses, not associated with fluid levels. Also some mucosal thickening in the sphenoid sinuses. Frontal sinuses are well aerated. Ethmoidal air cells are aerated. There is no evidence of intracranial hemorrhage, mass effect, or shift of midline structures. There are no extra-axial fluid collections. The ventricles are not enlarged or shifted and there is no blood within the ventricular system nor within the basal cisterns. IMPRESSION: No acute intracranial findings on this noninfused CT scan of the brain. Clinically indicated follow-up MRI can be performed Paranasal sinus disease as described above. Report called by myself to ER provider 04/10/2021 11:25 a.m. Radiologic Study #2: Attestation: I personally reviewed and interpreted this imaging study as follows: Imaging: X-Ray Radiologist's impression: Exam(s) XR CHEST 2V PA LATERAL EXAM: XR CHEST 2V PA LATERAL CLINICAL HISTORY: Slurred speech. TECHNIQUE: 2D digital imaging was performed. COMPARISON: CR PORTABLE AP CHEST from 07/01/2012 FINDINGS: The previously present left subclavian Port-A-Cath has been replaced by a right supra clavi in Port-A-Cath. Its distal tip is in satisfactory position in the SVC. Mild cardiomegaly. Mediastinum not widened. No confluent infiltrates nor pleural effusions. No pulmonary edema. No pneumothorax. No ominous pulmonary nodule seen. Radiologic Study #3: Attestation: I personally reviewed and interpreted this imaging study as follows: Imaging: MRI Radiologist's impression: Exam(s) MR BRAIN WO EXAM: MR BRAIN WO CLINICAL HISTORY: Slurred speech, weakness TECHNIQUE: Multiplanar multisequence MRI of the brain was performed. COMPARISON: No exams were available for comparison FINDINGS: CEREBRAL PARENCHYMA: There is no evidence of intracranial hemorrhage, mass effect, or shift of midline structures. There are no extra-axial fluid collections. Ventricles are not enlarged or shifted. There is no significant focal signal abnormality in the cerebellar hemispheres nor within the karla, midbrain, and thalami. There are a few foci Moni in ventricular white signal abnormality FLAIR images, the largest of these being right periventricular white matter measuring 5 x 5 millimeters. No associated signal abnormality on DWI to suggest restricted diffusion at this level nor elsewhere in the brain. No hemorrhage. There is no significant focal signal abnormality evident on diffusion imaging to suggest acute ischemic event. No restricted diffusion Susceptibility imaging does not reveal evidence of microhemorrhages. PITUITARY GLAND: No mass nor parasellar abnormality. No obvious abnormality in the cavernous sinuses. FLOW VOIDS: The expected flow void are noted. No evidence of obvious aneurysm nor obvious vascular malformation. PARANASAL SINUSES: Go so thickening in the maxillary sinuses bilaterally noted. Also within the ethmoidal air cells, left more so than right. ORBITS: No obvious findings. IMPRESSION: Nonspecific white matter foci of signal abnormality as described above, not associated restricted diffusion on DWI and therefore not indicating acute lacunar infarcts. No hemorrhage. No territorial infarct. Susceptibility imaging does not reveal evidence of microhemorrhages. Radiologic Study #4: Attestation: I personally reviewed and interpreted this imaging study as follows: Imaging: MRI Radiologist's impression: Exam(s) MR ANGIO BRAIN WO EXAM: MR ANGIO BRAIN WO CLINICAL HISTORY: Slurred speech, weakness TECHNIQUE: Brain MRA study performed with [id number] sequence. No intravenous contrast. COMPARISON: Brain MRI and CT performed today reviewed FINDINGS: ANTERIOR CIRCULATION: Both internal carotid arteries patent the skull base-carotid canals well as within cavernous sinuses. Supraclinoid aspects are patent and nonaneurysmal. Both A1 segments are patent as are the anterior cerebral arteries and there is no evidence of aneurysm at the level of the anterior communicating artery. Both middle cerebral arteries are patent. However, there appears to be a mild-moderate stenosis in the distal M1 segment of the right middle cerebral artery. There is no evidence of intraluminal filling defect in this region. Flow signal is seen in the sylvian fissure branches middle cerebral artery distal to this level. POSTERIOR CIRCULATION: Both vertebral arteries are patent at the skull base and give off the posterior inferior cerebellar arteries at this level. Both vertebral arteries contribute to the formation of the basilar artery. The basilar artery ascends in the midline with normal luminal diameter. Distally it gives off patent superior cerebellar arteries and above this level terminates as patent bilateral posterior cerebral arteries. There is no aneurysm of the tip of the basilar artery nor elsewhere in the mrwppe-hf-[place]. No evidence of venous sinus thrombosis. IMPRESSION: 1. Mild stenosis in the distal M1 segment of the right middle cerebral artery. No intraluminal thrombus evident. 2. No aneurysm seen No evidence of venous dural sinus thrombosis. Lab Data Lab results reviewed: Yes I reviewed the patient's lab results. Labs: Laboratory Tests Range/Units 04/10/21 04/10/21 04/10/21 10:50 13:05 13:05 WBC (4.4-10.8) 10^3/uL 4.57 RBC (4.36-5.78) 10^6/uL 3.81 L Hgb (13.5-17.5) g/dL 12.2 L Hct (40.0-50.0) % 39.9 L MCV (80-95) fL 104.7 H MCH (27.0-33.0) pg 32.0 MCHC (32.0-36.0) % 30.6 L RDW (11.8-14.1) % 15.8 H Plt Count (130-400) 10^3/uL 68 L MPV (8.0-11.0) fL 10.7 Immature Gran % 0.4 Neutrophils % 72.6 Lymphocytes % 10.1 Monocytes % 9.0 Eosinophils % 6.8 Basophils % 1.1 Nucleated RBC % % 0 Absolute Neutrophils (1.2-6.7) 10^3/uL 3.32 Absolute Lymphocytes (1.2-3.4) 10^3/uL 0.46 L Absolute Monocytes (0.1-0.8) 10^3/uL 0.41 Absolute Eosinophils (0.0-0.7) 10^3/uL 0.31 Absolute Basophils (0.0-0.2) 10^3/uL 0.05 RBC Morphology See Below Polychromasia Present Poikilocytosis 2+ Macrocytosis 1+ Sodium (136-145) mmol/L 142 Potassium (3.5-5.1) mmol/L 4.2 Chloride (98-107) mmol/L 108 H Carbon Dioxide (21.0-32.0) mmol/L 28.1 Anion Gap (3-11) mmol/L 5.9 BUN (7-18) mg/dL 53 H Creatinine (0.70-1.30) mg/dL 1.7 H Estimated GFR/1.73 m2 (mL/min/1.73m2) 40.91 Glucose (74-106) mg/dL 60 L Calcium (8.5-10.1) mg/dL 8.7 Magnesium (1.8-2.4) mg/dL 1.7 L Total Bilirubin (0.2-1.0) mg/dL 0.5 AST (15-37) U/L 49 H ALT (16-63) U/L 39 Alkaline Phosphatase (46-116) U/L 143 H Troponin I (<0.06) ng/mL 0.73 H* NT-Pro-B Natriuret Pep (<300) pg/mL Total Protein (6.4-8.2) g/dL 8.2 Albumin (3.4-5.0) g/dL 2.9 L Urine Color (Yellow) Yellow Urine Clarity (Clear) Clear Urine pH (5-8) 5.5 Ur Specific [place] (1.005-1.025) 1.020 Urine Protein (Negative) mg/dL Negative Urine Ketones (Negative) mg/dL Negative Urine Blood (Negative) Small H Urine Nitrite (Negative) Negative Urine Bilirubin (Negative) Negative Urine Urobilinogen (Up TO 0.2) EU/dL 0.2 Ur Leukocyte Esterase (Negative) Negative Urine RBC (0-2) HPF 3-5 H Urine WBC (0-5) HPF 0-2 Ur Epithelial Cells (Negative) HPF Rare Urine Crystals (Negative) HPF Negative Urine Bacteria (Negative) HPF Rare Urine Casts (Negative) LPF Negative Urine Mucus (Negative) Trace Ur Culture Indicated? No Urine Glucose (Negative) mg/dL Negative COVID-19 Source Range/Units 04/10/21 04/10/21 15:00 15:12 WBC (4.4-10.8) 10^3/uL RBC (4.36-5.78) 10^6/uL Hgb (13.5-17.5) g/dL Hct (40.0-50.0) % MCV (80-95) fL MCH (27.0-33.0) pg MCHC (32.0-36.0) % RDW (11.8-14.1) % Plt Count (130-400) 10^3/uL MPV (8.0-11.0) fL Immature Gran % Neutrophils % Lymphocytes % Monocytes % Eosinophils % Basophils % Nucleated RBC % % Absolute Neutrophils (1.2-6.7) 10^3/uL Absolute Lymphocytes (1.2-3.4) 10^3/uL Absolute Monocytes (0.1-0.8) 10^3/uL Absolute Eosinophils (0.0-0.7) 10^3/uL Absolute Basophils (0.0-0.2) 10^3/uL RBC Morphology Polychromasia Poikilocytosis Macrocytosis Sodium (136-145) mmol/L Potassium (3.5-5.1) mmol/L Chloride (98-107) mmol/L Carbon Dioxide (21.0-32.0) mmol/L Anion Gap (3-11) mmol/L BUN (7-18) mg/dL Creatinine (0.70-1.30) mg/dL Estimated GFR/1.73 m2 (mL/min/1.73m2) Glucose (74-106) mg/dL Calcium (8.5-10.1) mg/dL Magnesium (1.8-2.4) mg/dL Total Bilirubin (0.2-1.0) mg/dL AST (15-37) U/L ALT (16-63) U/L Alkaline Phosphatase (46-116) U/L Troponin I (<0.06) ng/mL NT-Pro-B Natriuret Pep (<300) pg/mL 7207 H Total Protein (6.4-8.2) g/dL Albumin (3.4-5.0) g/dL Urine Color (Yellow) Urine Clarity (Clear) Urine pH (5-8) Ur Specific [place] (1.005-1.025) Urine Protein (Negative) mg/dL Urine Ketones (Negative) mg/dL Urine Blood (Negative) Urine Nitrite (Negative) Urine Bilirubin (Negative) Urine Urobilinogen (Up TO 0.2) EU/dL Ur Leukocyte Esterase (Negative) Urine RBC (0-2) HPF Urine WBC (0-5) HPF Ur Epithelial Cells (Negative) HPF Urine Crystals (Negative) HPF Urine Bacteria (Negative) HPF Urine Casts (Negative) LPF Urine Mucus (Negative) Ur Culture Indicated? Urine Glucose (Negative) mg/dL COVID-19 Source Nasal/Nares ECG Data Attestation: I personally reviewed and interpreted this ECG (s) as follows: Interpretation: Please see official report by Dr. Guerin, sinus rhythm, nonspecific T wave abnormalities, no STEMI <LUDA Fortune - Last Filed: 04/10/21 22:04> Care transition myself from Jayden Patel PA-C. Please see his initial note regarding history, presentation and exam. In brief, patient is a pleasant 61-year-old male, accompanied by family, presenting today after having episode of slurred speech yesterday. Generalized weakness today. His generalized weakness is not atypical for the patient. Report indicated that patient's weakness is chronic and associated with flares of the patient's myositis. Initial labs are concerning for troponin of 0.73. EKG without significant abnormality. As the initial concern was for slurred speech and weakness, Mr. Patel was concern for potential CVA. CT and MR were obtained and unremarkable for acute process. At the time I assumed care, repeat troponin is pending. If stable, plan is for patient to be admitted here. Patient did have an elevated BNP which is new, he also has extremity edema and was given 40 mg IV Lasix. Patient's glucose has been running low since being here. His lowest 50, Mr. Patel was questioning if this may be associated with his weakness and slurred speech.. Repeat troponin remains flat at 0.72. Reassessed the patient. He continues to feel well. 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 He denies CP, SOB, nausea. Consulted with hospitalist regarding admission. He is questioning of this elevated troponin may in fact be associated with the myositis flare. Recommend adding on a repeat troponin as well as a CPK. CPK is elevated. Repeat troponin remains flat. Dr. Rossi agrees to admission for continued monitoring and evaluation of his elevated troponin and BNP. Plan with the patient and his are in agreement. HPI <LUDA Paniagua - Last Filed: 04/11/21 08:01> General Mode of arrival: ambulatory. Date/Time Provider Initiated Documentation: 04/10/21 10:26. Limitations to Documentation: no limitations. Information obtained by: patient and family. HPI Narrative: This is a 61-year-old male, past medical history that includes diabetes, hypertension, inclusion body myositis, obesity, presenting to the ER today at the request of his primary care office after having episode of generalized weakness yesterday with slurred speech that occurred around 5:30 PM, lasted for couple of hours. Patient and significant other reports that because of his myositis, he does get generalized weakness like this from time to time but not typically slurred speech. Patient today now reports having generalized weakness, fatigue but otherwise feels well. Denies recent illness or trauma. Denies headache, neck pain, chest pain, shortness of breath, abdominal pain, nausea, vomiting, change in bowel or bladder function, skin rash, numbness, tingling, weakness. Patient reports that he has been having increased leg swelling lately. Has taken all of his regular medications as directed but did not take anything [id number] today. Related Data Home Medications Medication Instructions Recorded Confirmed insulin glargine [Lantus Solostar] 75 unit SQ HS 09/15/12 04/10/21 ondansetron [Zofran Odt] 4 mg PO Q4H PRN 09/15/12 04/10/21 Gamaguard Ivig MONTHLY FOR 2 DAYS 09/18/12 11/24/13 indomethacin 50 mg PO Q8H PRN tab-cap 09/18/12 11/24/13 insulin lispro [Humalog] 100 unit SQ AC cartridge 09/18/12 11/24/13 insulin glargine [Lantus] 10 units SQ DAILY 11/23/13 04/10/21 multivitamin [Multi Vitamin Daily] 1 tab PO DAILY 11/23/13 04/10/21 omeprazole 40 mg PO DAILY PRN 11/23/13 04/10/21 allopurinol 400 mg PO DAILY 04/10/21 04/10/21 furosemide 40 mg PO DAILY 04/10/21 04/10/21 glipizide [Glucotrol XL] 10 mg PO DAILY 04/10/21 04/10/21 losartan-hydrochlorothiazide tab 04/10/21 04/10/21 terazosin 5 mg PO DAILY 04/10/21 04/10/21 Allergies Allergy/AdvReac Type Severity Reaction Status Date / Time methotrexate Allergy Skin Rash Unverified 04/10/21 10:33 morphine Allergy Itching Unverified 04/10/21 10:33 Axxqobp-YOH-GrF Reductase Allergy NECROTIZING Unverified 04/10/21 10:33 Inhibitor MYOPATHY [Rhkxksi-Qxg-Kjo Reductase Inhibitor] Review of Systems <LUDA Paniagua - Last Filed: 04/11/21 08:01> Constitutional Constitutional: Reports fatigue, Denies fever(s) and Denies headache(s) Eyes Eyes: Denies change in vision ENT Ears, Nose, Mouth, and Throat: Denies headache(s) and Denies neck pain Cardiovascular Cardiovascular: Denies chest pain and Denies dyspnea Respiratory Respiratory: Denies cough and Denies dyspnea Gastrointestinal Gastrointestinal: Denies abdominal pain, Denies diarrhea, Denies nausea and Denies vomiting Genitourinary Genitourinary: Denies dysuria Musculoskeletal Musculoskeletal: Denies back pain, Denies neck pain, Denies numbness and Denies tingling Integumentary/Breasts Skin/Breast: Denies rash Neurologic Neurologic: Denies headache(s), Denies numbness, Denies tingling and Reports weakness (Generalized) Endocrine Endocrine: Reports fatigue Hematologic/Lymphatic Hematologic/Lymphatic: Denies easy bleeding and Denies easy bruising PFSH <LUDA Paniagua - Last Filed: 04/11/21 08:01> Medical History Diabetes mellitus Essential hypertension Hypercholesterolemia Inclusion body myositis Kidney stone MYOPATHY DUE TO DRUGS Surgical History Colonoscopy - MAC (~2009) EGD - MAC (~2009) LITHOTRIPSY MUSCLE BIOPSY POWER PORT Repair of umbilical hernia Family History Mother Renal failure syndrome Diabetes Personal history of malignant neoplasm COLON Father No problems noted. Sister Diabetes PATERNAL UNCLE Personal history of malignant neoplasm STOMACH Social History Smoking/Tobacco Use Status: Never Smoking risk assessment performed?: Yes Alcohol Intake: never Drug use: Never Do you feel safe at home: Yes Do you feel safe in your relationship?: Yes Exam <LUDA Paniagua - Last Filed: 04/11/21 08:01> Const General: cooperative, comfortable, no acute distress and ill appearing chronically Orientation: alert, awake and oriented x3 HENMT Head: normal to inspection, normocephalic and atraumatic Face and sinus: normal facial exam Mouth: moist mucous membranes Eyes General: appearance normal, both eyes and all related structures Conjunctivae: conjunctivae normal Neck Neck: normal visual inspection, full ROM, trachea midline, supple and nontender Resp Effort & Inspection: normal respiratory effort and able to speak in complete sentences Auscultation: diminished lung sounds bilaterally in the lower lung cano Cardio Rate: regular rate Rhythm: regular rhythm GI Inspection: obesity Palpation: soft, not firm, no guarding, no pulsatile masses and nontender Back/Spine/Pelvis Back: No back tenderness Skin General skin exam: no rashes or lesions noted Neuro General: patient alert, patient awake, patient oriented x3, moves all extremities and no focal motor deficits Cranial Nerves: CN's II-XI intact bilaterally Cognition: normal cognition Speech: speech normal Gait: normal gait Motor: muscle tone normal throughout, strength 5/5 throughout, no movement abnormalities noted and no fasciculations Sensory Exam: no sensory deficits noted Extrem General: full ROM, capillary refill normal, no calf tenderness and pedal edema bilaterally non-pitting and 2+ Psych Appearance: grossly normal Mental Status: mental status grossly normal Sign Out <LUDA Paniagua - Last Filed: 04/11/21 08:01> Sign Out Data: Sign Out Comment: Slurred speech and weakness yesterday. CT of head, MRI, MRA nothing acute. Patient found to be hypoglycemic at 60, after food, glucose up to 96. Question of episode yesterday could be secondary to hypoglycemia. Work-up today revealed elevated troponin and BNP, what appears to be new onset CHF. Given renal function given 40 IV Lasix. Awaiting repeat troponin, if stable likely admission here, if trending upward or patient becomes symptomatic, likely transfer Last updated by Leoncio Patel PA at 04/10/21 15:59
--- NOTE | 2021-04-10 10:46 | NUR.NOTE ---
Nursing Note: BGL 60. Pt reports that he has a PMH of diabetes and has not had breakfast this morning. PT provided with cup of orange juice with provider approval.
--- NOTE | 2021-04-10 11:00 | RT.EKG_ITS ---
APPROVED REPORT Exam: Resting ECG Reason for Exam: Slurred speech Patient Location: E HR:80 bpm ECG Measurements Heart Rate 80 AXIS UT 177 P 35 QRSd 106 QRS -11 QT 429 T 242 QTc 495 Conclusion Sinus rhythm...normal P axis, V-rate 60- 99 Atrial premature complex...SV complex w/ short R-R interval Nonspecific T abnormalities, lateral leads...T <-0.10mV, I aVL V5 V6 no STEMI, non-diagnostic EKG I have reviewed and interpreted ECG and agree with software generated interpretation.
[2021-04-10 11:05] LABS: Bilirubin Negative (Negative); Blood Small (Negative); Clarity Clear (Clear); Glucose Negative (Negative); Ketones Negative (Negative); Leukocyte Esterase Negative (Negative); Nitrite Negative (Negative); Urobilinogen 0.2 EU/dL (Up TO 0.2); pH 5.5 (5-8)
[2021-04-10 11:11] LABS: Bacteria Rare HPF (Negative); C & S Indicated? No; Casts Negative LPF (Negative); Crystals Negative HPF (Negative); Epithelial Cells Rare HPF (Negative); Mucus Trace (Negative); WBC 0-2 HPF (0-5)
--- NOTE | 2021-04-10 11:20 | DI.CT_ITS ---
Exam(s) CT HEAD - STROKE PROTOCOL EXAM: CT HEAD - STROKE PROTOCOL CLINICAL HISTORY: Slurred speech, weakness. TECHNIQUE: Imaging Protocol: Axial computed tomography images with coronal and sagittal reformatted images were created and reviewed COMPARISON: No exams were available for comparison FINDINGS: There are no skull fractures. Mucosal thickening is noted in both maxillary sinuses, not associated with fluid levels. Also some mucosal thickening in the sphenoid sinuses. Frontal sinuses are well aerated. Ethmoidal air cells are aerated. There is no evidence of intracranial hemorrhage, mass effect, or shift of midline structures. There are no extra-axial fluid collections. The ventricles are not enlarged or shifted and there is no blo od within the ventricular system nor within the basal cisterns. IMPRESSION: No acute intracranial findings on this noninfused CT scan of the brain. Clinically indicated follow- up MRI can be performed Paranasal sinus disease as described above. Report called by myself to ER provider 04/10/2021 11:25 a.m. RADIATION DOSE DELIVERED: 943.07mGy.cm Total DLP DATA REPOSITORY: All CT scans at this facility are submitted to the National Radiology Data Registry (NRDR) Dose Index Registry (DIR) with the [employer] ([employer]). RADIATION OPTIMIZATION: All CT scans at this facility use at least one of these dose optimization te chniques: automated exposure control; mA and/or kV adjustment per patient size (includes targeted exa ms where dose is matched to clinical indication); or iterative reconstruction.
--- NOTE | 2021-04-10 11:25 | DI.RAD_ITS ---
Exam(s) XR CHEST 2V PA LATERAL EXAM: XR CHEST 2V PA LATERAL CLINICAL HISTORY: Slurred speech. TECHNIQUE: 2D digital imaging was performed. COMPARISON: CR PORTABLE AP CHEST from 07/01/2012 FINDINGS: The previously present left subclavian Port-A-Cath has been replaced by a right supra clavi in Port-A -Cath. Its distal tip is in satisfactory position in the SVC. Mild cardiomegaly. Mediastinum not widened. No confluent infiltrates nor pleural effusions. No pulmonary edema. No pneumothorax. No ominous pu lmonary nodule seen. IMPRESSION: No acute pulmonary findings. Port-A-Cath is in satisfactory position DATA REPOSITORY: RADIATION DOSE DELIVERED:
--- NOTE | 2021-04-10 11:30 | DI.MRI_ITS ---
Exam(s) MR BRAIN WO EXAM: MR BRAIN WO CLINICAL HISTORY: Slurred speech, weakness TECHNIQUE: Multiplanar multisequence MRI of the brain was performed. COMPARISON: No exams were available for comparison FINDINGS: CEREBRAL PARENCHYMA: There is no evidence of intracranial hemorrhage, mass effect, or shift of midline structures. There are no extra-axial fluid collections. Ventricles are not enlarged or shifted. There is no significant focal signal abnormality in the cerebellar hemispheres nor within the karla, m idbrain, and thalami. There are a few foci Moni in ventricular white signal abnormality FLAIR images, the largest of these being right periventricular white matter measuring 5 x 5 millimeters. No associated signal abnormali ty on DWI to suggest restricted diffusion at this level nor elsewhere in the brain. No hemorrhage. There is no significant focal signal abnormality evident on diffusion imaging to suggest acute ischem ic event. No restricted diffusion Susceptibility imaging does not reveal evidence of microhemorrhages. PITUITARY GLAND: No mass nor parasellar abnormality. No obvious abnormality in the cavernous sinuses. FLOW VOIDS: The expected flow void are noted. No evidence of obvious aneurysm nor obvious vascular ma lformation. PARANASAL SINUSES: Go so thickening in the maxillary sinuses bilaterally noted. Also within the ethm oidal air cells, left more so than right. ORBITS: No obvious findings. IMPRESSION: Nonspecific white matter foci of signal abnormality as described above, not associated restricted dif fusion on DWI and therefore not indicating acute lacunar infarcts. No hemorrhage. No territorial in farct. Susceptibility imaging does not reveal evidence of microhemorrhages. DATA REPOSITORY:
--- NOTE | 2021-04-10 11:30 | DI.MRI_ITS ---
Exam(s) MR ANGIO BRAIN WO EXAM: MR ANGIO BRAIN WO CLINICAL HISTORY: Slurred speech, weakness TECHNIQUE: Brain MRA study performed with [id number] sequence. No intravenous contrast. COMPARISON: Brain MRI and CT performed today reviewed FINDINGS: ANTERIOR CIRCULATION: Both internal carotid arteries patent the skull base-carotid canals well as wit hin cavernous sinuses. Supraclinoid aspects are patent and nonaneurysmal. Both A1 segments are peterson nt as are the anterior cerebral arteries and there is no evidence of aneurysm at the level of the ant erior communicating artery. Both middle cerebral arteries are patent. However, there appears to be a mild-moderate stenosis in t he distal M1 segment of the right middle cerebral artery. There is no evidence of intraluminal filli ng defect in this region. Flow signal is seen in the sylvian fissure branches middle cerebral artery distal to this level. POSTERIOR CIRCULATION: Both vertebral arteries are patent at the skull base and give off the posterio r inferior cerebellar arteries at this level. Both vertebral arteries contribute to the formation of the basilar artery. The basilar artery ascends in the midline with normal luminal diameter. Distal ly it gives off patent superior cerebellar arteries and above this level terminates as patent bilater al posterior cerebral arteries. There is no aneurysm of the tip of the basilar artery nor elsewhere in the [id number]. No evidence of venous sinus thrombosis. IMPRESSION: 1. Mild stenosis in the distal M1 segment of the right middle cerebral artery. No intraluminal thro mbus evident. 2. No aneurysm seen No evidence of venous dural sinus thrombosis. DATA REPOSITORY:
[2021-04-10 13:14] LABS: Abs Immature Grans 0.02 10^3/uL (0.0-0.06); Absolute Basophil Count 0.05 10^3/uL (0.0-0.2); Absolute Eosinophil Count 0.31 10^3/uL (0.0-0.7); Absolute Lymphocyte Count 0.46 10^3/uL (1.2-3.4); Absolute Monocyte Count 0.41 10^3/uL (0.1-0.8); Absolute Neutrophil Count 3.32 10^3/uL (1.2-6.7); Basophils % 1.1; Eosinophils % 6.8; HCT 39.9 % (40.0-50.0); HGB 12.2 g/dL (13.5-17.5); Immature Grans % 0.4; Lymphocytes % 10.1; MCHC 30.6 % (32.0-36.0); MCV 104.7 fL (80-95); MPV 10.7 fL (8.0-11.0); Neutrophils % 72.6; Nucleated RBC 0 %; RBC 3.81 10^6/uL (4.36-5.78); RDW 15.8 % (11.8-14.1); WBC 4.57 10^3/uL (4.4-10.8)
[2021-04-10 13:30] LABS: ALT 39 U/L (16-63); AST 49 U/L (15-37); Albumin 2.9 g/dL (3.4-5.0); Alkaline Phosphatase 143 U/L (46-116); Anion Gap 5.9 mmol/L (3-11); BUN 53 mg/dL (7-18); Bilirubin, Total 0.5 mg/dL (0.2-1.0); CO2 28.1 mmol/L (21.0-32.0); CREATININE 1.7 mg/dL (0.70-1.30); Calcium 8.7 mg/dL (8.5-10.1); Chloride 108 mmol/L (98-107); Estimated GFR 40.91 (mL/min/1.73m2); Glucose 60 mg/dL (74-106); Magnesium 1.7 mg/dL (1.8-2.4); Potassium 4.2 mmol/L (3.5-5.1); Sodium 142 mmol/L (136-145); Total Protein 8.2 g/dL (6.4-8.2)
[2021-04-10 13:33] LABS: Diff Comment Diff Reviewed; Platelet Count 68 10^3/uL (130-400)
[2021-04-10 13:34] LABS: Macrocytosis 1+; Poikilocytes 2+; Polychromasia Present
[2021-04-10 13:38] LABS: Troponin I 0.73 ng/mL (<0.06)
[2021-04-10] MEDS: Aspirin 325 MG TAB PO (15:00)
[2021-04-10 15:08] LABS: Source Nasal/Nares
[2021-04-10 15:42] LABS: NT-proBNP 7207 pg/mL (<300)
[2021-04-10] MEDS: Furosemide 40 MG/4 ML VIAL IVP (15:51)
--- NOTE | 2021-04-10 16:15 | RT.EKG_ITS ---
APPROVED REPORT Exam: Resting ECG Reason for Exam: elevated trop Patient Location: E HR:71 bpm ECG Measurements Heart Rate 71 AXIS IN 164 P 26 QRSd 106 QRS -9 QT 395 T 245 QTc 430 Conclusion Sinus rhythm...normal P axis, V-rate 60- 99 Nonspecific T abnormalities, lateral leads...T <-0.10mV, I aVL V5 V6
[2021-04-10 16:22] LABS: COVID-19 PCR Negative (Negative)
[2021-04-10 16:32] LABS: Troponin I 0.72 ng/mL (<0.06)
[2021-04-10 18:24] LABS: Creatine Kinase 478 U/L (39-308)
[2021-04-10 18:44] LABS: Troponin I 0.77 ng/mL (<0.06)
--- NOTE | 2021-04-10 18:53 | HPE_ITS ---
Date of service: 04/10/21 Time of Service: 18:53 Assessment and Plan Assessment and plan (1) Elevated troponin: Status: Acute Assessment and plan: That the trops are essentially flat, and without any CP, I suspect this may be a non-cardiac cause (viz, myositis). However the presence of EKG findings (unknown if new old) and elevated BNP with s/s c/w CHF -- this would potentially constitute three separate cardiac factors and I think the wisest course here is to provisionally make a working assumption of some unspecified cardiac lesion. 1. Cardiac: trend trops, ECHO, check MB fraction of CPK, track diuresis 2. DM : glucose 60 here. Will hold oral agents and cut basal insulin by 50%, with SS coverage 3. Episode of slurred speech yesterday: unclear, possibly non-specific, though TIA can be considered, Certainly patient at risk of CVD and should probably be on ASA prevention regardless. As above has received dose in ER. 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 In ER initial findings of note for negative head CT, nonspecific findings MRI. However lab findings of note for troponin 0.73 and BNP >7000. Notably patient denies CP but does note some increase in baseline pedal edema over last month or so and also (to me) endorses a degree of orthopnea over past 3 months. Initial EKG shows NSR with diffuse TW flattening (no priors) and second EKG unchanged. Second and third trop 0.72, 0.77. Patient was given ASA 325 and 40 Lasix IVP. A CPK was 478. I was asked to evaluate for admission. 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 Sister Diabetes PATERNAL UNCLE Personal history of malignant neoplasm STOMACH Social History Smoking/Tobacco Use Status: Never Smoking risk assessment performed?: Yes Alcohol Intake: never Drug use: Never Do you feel safe at home: Yes Do you feel safe in your relationship?: Yes Meds Allergies and Home Medications Allergies Allergy/AdvReac Type Severity Reaction Status Date / Time methotrexate Allergy Skin Rash Unverified 04/10/21 10:33 morphine Allergy Itching Unverified 04/10/21 10:33 [id number]-[id number] Reductase Allergy NECROTIZING Unverified 04/10/21 10:33 Inhibitor MYOPATHY [Caogfxn-Slr-Tfn Reductase Inhibitor] Home Medications Medication Instructions Recorded Confirmed Type insulin glargine [Lantus Solostar] 75 unit SQ HS 09/15/12 04/10/21 History ondansetron [Zofran Odt] 4 mg PO Q4H PRN 09/15/12 04/10/21 History Gamaguard Ivig MONTHLY FOR 2 DAYS 09/18/12 11/24/13 History indomethacin 50 mg PO Q8H PRN tab-cap 09/18/12 11/24/13 History insulin lispro [Humalog] 100 unit SQ AC cartridge 09/18/12 11/24/13 History insulin glargine [Lantus] 10 units SQ DAILY 11/23/13 04/10/21 History multivitamin [Multi Vitamin Daily] 1 tab PO DAILY 11/23/13 04/10/21 History omeprazole 40 mg PO DAILY PRN 11/23/13 04/10/21 History allopurinol 400 mg PO DAILY 04/10/21 04/10/21 History furosemide 40 mg PO DAILY 04/10/21 04/10/21 History glipizide [Glucotrol XL] 10 mg PO DAILY 04/10/21 04/10/21 History losartan-hydrochlorothiazide tab 04/10/21 04/10/21 History terazosin 5 mg PO DAILY 04/10/21 04/10/21 History Exam Narrative Exam Narrative: 138/74, 78, 36.4, 16, 97% RA. HEENT atraumatic; neck 8unablke to read JVP; lungs clear though difficult exam due to ambient noise; heart distant/ RRR; abdomern soft and NT; extremities 1-2+ pedal edema, pulse 2+/=; neuro Ox3, lucid, moves all 4s Results Labs Result diagrams: 04/10/21 13:05 04/10/21 13:05 Labs: Laboratory Results - last 24 hr 04/10/21 04/10/21 04/10/21 10:50 13:05 13:05 WBC 4.57 RBC 3.81 L Hgb 12.2 L Hct 39.9 L MCV 104.7 H MCH 32.0 MCHC 30.6 L RDW 15.8 H Plt Count 68 L MPV 10.7 Immature Gran % 0.4 Neutrophils % 72.6 Lymphocytes % 10.1 Monocytes % 9.0 Eosinophils % 6.8 Basophils % 1.1 Nucleated RBC % 0 Absolute Neutrophils 3.32 Absolute Lymphocytes 0.46 L Absolute Monocytes 0.41 Absolute Eosinophils 0.31 Absolute Basophils 0.05 RBC Morphology See Below Polychromasia Present Poikilocytosis 2+ Macrocytosis 1+ Sodium 142 Potassium 4.2 Chloride 108 H Carbon Dioxide 28.1 Anion Gap 5.9 BUN 53 H Creatinine 1.7 H Estimated GFR/1.73 m2 40.91 Glucose 60 L Calcium 8.7 Magnesium 1.7 L Total Bilirubin 0.5 AST 49 H ALT 39 Alkaline Phosphatase 143 H Creatine Kinase Troponin I 0.73 H* NT-Pro-B Natriuret Pep Total Protein 8.2 Albumin 2.9 L Urine Color Yellow Urine Clarity Clear Urine pH 5.5 Ur Specific [place] 1.020 Urine Protein Negative Urine Ketones Negative Urine Blood Small H Urine Nitrite Negative Urine Bilirubin Negative Urine Urobilinogen 0.2 Ur Leukocyte Esterase Negative Urine RBC 3-5 H Urine WBC 0-2 Ur Epithelial Cells Rare Urine Crystals Negative Urine Bacteria Rare Urine Casts Negative Urine Mucus Trace Ur Culture Indicated? No Urine Glucose Negative COVID-19 Source SARS-CoV-2 (PCR) 04/10/21 04/10/21 04/10/21 15:00 15:12 15:12 WBC RBC Hgb Hct MCV MCH MCHC RDW Plt Count MPV Immature Gran % Neutrophils % Lymphocytes % Monocytes % Eosinophils % Basophils % Nucleated RBC % Absolute Neutrophils Absolute Lymphocytes Absolute Monocytes Absolute Eosinophils Absolute Basophils RBC Morphology Polychromasia Poikilocytosis Macrocytosis Sodium Potassium Chloride Carbon Dioxide Anion Gap BUN Creatinine Estimated GFR/1.73 m2 Glucose Calcium Magnesium Total Bilirubin AST ALT Alkaline Phosphatase Creatine Kinase 478 H Troponin I NT-Pro-B Natriuret Pep 7207 H Total Protein Albumin Urine Color Urine Clarity Urine pH Ur Specific [place] Urine Protein Urine Ketones Urine Blood Urine Nitrite Urine Bilirubin Urine Urobilinogen Ur Leukocyte Esterase Urine RBC Urine WBC Ur Epithelial Cells Urine Crystals Urine Bacteria Urine Casts Urine Mucus Ur Culture Indicated? Urine Glucose COVID-19 Source Nasal/Nares SARS-CoV-2 (PCR) Negative 04/10/21 04/10/21 16:05 18:16 WBC RBC Hgb Hct MCV MCH MCHC RDW Plt Count MPV Immature Gran % Neutrophils % Lymphocytes % Monocytes % Eosinophils % Basophils % Nucleated RBC % Absolute Neutrophils Absolute Lymphocytes Absolute Monocytes Absolute Eosinophils Absolute Basophils RBC Morphology Polychromasia Poikilocytosis Macrocytosis Sodium Potassium Chloride Carbon Dioxide Anion Gap BUN Creatinine Estimated GFR/1.73 m2 Glucose Calcium Magnesium Total Bilirubin AST ALT Alkaline Phosphatase Creatine Kinase Troponin I 0.72 H* 0.77 H* NT-Pro-B Natriuret Pep Total Protein Albumin Urine Color Urine Clarity Urine pH Ur Specific [place] Urine Protein Urine Ketones Urine Blood Urine Nitrite Urine Bilirubin Urine Urobilinogen Ur Leukocyte Esterase Urine RBC Urine WBC Ur Epithelial Cells Urine Crystals Urine Bacteria Urine Casts Urine Mucus Ur Culture Indicated? Urine Glucose COVID-19 Source SARS-CoV-2 (PCR) Last Vital Signs Temp 36.4 C L 04/10/21 10:22 Pulse 78 04/10/21 18:01 Resp 16 04/10/21 17:50 BP 138/74 04/10/21 18:01 Pulse Ox 97 04/10/21 18:01
[2021-04-10] MEDS: Insulin Glargine 300 UNITS/3 ML PEN 25 UNITS SC (23:29)
[2021-04-11] VITALS (9 sets, daily range): BP systolic 118–153; BP diastolic 74–84; PULSE 77–87; RESP 17–18; TEMP 36.4–36.8; O2SAT 95–97
--- NOTE | 2021-04-11 | DI.US_ITS ---
APPROVED REPORT EXAM: Comprehensive 2D, Doppler, and color-flow Echocardiogram Patient Location: In-Patient Room/Bed: [address] Engineer: Kerry Carranza RDCS (AE) Indications: CHF Other Information Study Quality: Poor. Technically limited study due to body habitus. Conclusion Technically difficult study Left ventricle is moderately dilated. Overall left ventricular systolic function is reduced with an ejection fraction estimated at 30 to 35%. Regional wall motion could not be accurately assessed The right ventricle is not well visualized Both atria appear borderline dilated The aortic valve is trileaflet and sclerotic. There is mild aortic stenosis with a peak gradient of 27 mmHg, mean 19 mmHg, calculated aortic valve area of 1.24 cm?? Thickened mitral leaflets with mild regurgitation. Mild mitral annular calcification Normal tricuspid valve with trace regurgitation. Right ventricular systolic pressure could not be es timated Mildly dilated ascending aorta measuring 3.68 cm Wall motion Left Ventricle Left ventricle is moderately dilated. Left ventricular systolic function is moderate to severely decr eased. There is normal left ventricular wall thickness. Regional wall motion abnormalities cannot be excluded. There is no ventricular septal defect visualized. LVEF is 30-35%. Right Ventricle Right ventricle is not well visualized. Right ventricular systolic function could not be assessed. Atria Left atrium is borderline dilated. Right atrium is borderline dilated. The interatrial septum is inta ct with no evidence for an atrial septal defect. Aortic Valve Aortic valve is calcified. Mild aortic stenosis. Peak aortic valve gradient is 30.5mmHg. Highest mean aortic valve gradient is 19.1mmHg. Calculated LILIA by the continuity equation is 1.28cm2. No aortic r egurgitation is present. Mitral Valve The mitral valve is thickened but opens well. Mild mitral annular calcification. No evidence of melissa l valve stenosis. Mild mitral regurgitation. Tricuspid Valve The tricuspid valve is normal in structure. There is no tricuspid valve stenosis. Trace tricuspid reg urgitation. Unable to assess PA pressure. Pulmonic Valve The pulmonary valve is normal in structure. There is no pulmonic valvular stenosis. Trace pulmonic re gurgitation. Great Vessels The aortic root is normal in size. The ascending aorta is mildly dilated. The IVC collapses <50% with inspiration. Pericardium There is no pericardial effusion. 2D Dimensions IVSD d PLAX 0.94 cm M: 0.6-1.2 LVPW d PLAX 0.94 cm M: 0.6 - 1.2 LVID d PLAX 7.08 cm M: 4.2 - 5.8 LVDs 6.00 cm M: 2.5 - 4.0 Ao Root d 3.07 cm M: 3.1 - 3.7 RA Area A4C 14.72 cm2 Ao Asc Diam d 3.68 cm M: 2.6 - 3.4 LV EF Teichholz 30.1 % FS 14.60 % M-Mode TAPSE 2.87 cm (M/F) >1.7 LV Diastology E/A Ratio 2.4 MV E Vmax 1.21 (0.4-1.3 m/s) MV A Vmax 0.50 (0.4-1.3 m/s) MV E/A Ratio 2.32 Aortic Valve LVOT Area 3.13 cm2 AoV Area Vmax 1.28 cm2 LVOT Vmax 1.13 m/s LILIA Mean Volodymyr. 1.35 cm2 LVOT Mean Volodymyr. 0.91 m/s LVOT Peak Grad 5.1 mmHg LVOT Mean Grad 3.4 mmHg LVOT VTI 0.238 m LVOT Diam s 1.95 cm AoV Vmax 2.76 m/s Velocity Ratio 0.40 AoV Mean Volodymyr. 2.11 m/s AoV Peak Grad 30.5 mmHg LVOT SV 74.38 mL AoV Mean Grad 19.1 mmHg AoV VTI 0.598 m AoV Area VTI 1.24 cm2 Mitral Valve MV DT 145 (160-240 msec) MV PHT 42 msec MV Area PHT 5.23 cm2 MV VTI 0.328 m MV Area VTI 2.27 (4.0-6.0 cm2) Pulmonary Valve PV Vmax 1.01 (0.5-1.5 m/s) RVOT Peak Gr. 2.39 mmHg PV Peak Grad 4.1 mmHg RVOT Mean Gr. 1.25 mmHg PV Mean Grad 2.3 mmHg RVOT VTI 0.151 m PV VTI 0.191 m RVOT Vmax 0.77 m/s
[2021-04-11 07:33] LABS: Troponin I 0.45 ng/mL (<0.06)
[2021-04-11] MEDS: Allopurinol 100 MG TAB 400 MG PO (09:01)
[2021-04-11 09:02] LABS: Hemoglobin A1C 4.8 % (<5.7)
[2021-04-11] MEDS: Magnesium Oxide 400 MG TAB 800 MG PO (10:05)
[2021-04-11] MEDS: Insulin Aspart 300 UNITS/3 ML PEN SC ×2 (11:46→16:49)
--- NOTE | 2021-04-11 13:25 | W.PM.PROGNOT ---
Date of Service Date of service: 04/11/21 Time of Service: 13:25 Assessment and Plan Assessment and plan (1) Elevated troponin: Status: Acute Assessment and plan: Possibility secondary to his inflammatory myopathy however the fact that his troponins are declining and his echocardiogram demonstrates moderately severe cardiomyopathy I suspect that this is a recent ischemic event. Patient will be treated like an NSTEMI with dual antiplatelet therapy and beta-blockers and be given a prescription for as needed nitroglycerin. He will be set up to follow-up with cardiology as an outpatient and arrange to have a stress test versus cardiac catheterization in the near future. (2) Cardiomyopathy: Status: Acute Assessment and plan: Probable ischemic cardiomyopathy. Increase Lasix to twice a day, add low-dose carvedilol, continue losartan and consider addition an SGLT2 inhibitor. Qualifiers: Cardiomyopathy type: dilated Qualified Code(s): I42.0 - Dilated cardiomyopathy (3) Diabetes mellitus: Status: Chronic Assessment and plan: Decrease his baseline Lantus by 25% and continue current mealtime treatment. Consider discontinuation of glipizide and adding an SGLT2 inhibitor. 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 mellitus termite exterminator insulin use: with termite exterminator use Diabetes mellitus complication status: with kidney complications Diabetes mellitus complication detail: with chronic kidney disease Chronic kidney disease stage: stage 3 (moderate) Chronic kidney disease stage 3 subtype: stage 3b (GFR 30-44) Qualified Code(s): E11.22 - Type 2 diabetes mellitus with diabetic chronic kidney disease; N18.32 - Chronic kidney disease, stage 3b; Z79.4 - intermediate (current) use of insulin Subjective Subjective Interval history since last seen: He denies any chest pain or chest pressure. He has exertional dyspnea which is been a chronic symptom for years. I met with him and his and explained the findings with the elevated troponin of 0.73 being significant and possibly indicative of having had a CT. His troponins are trending downward and are now down to 0.45. 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 His CK is elevated at 478 therefore the elevated troponin may be part of his inflammatory myopathy however he had an echocardiogram that demonstrates a significant cardiomyopathy. His echocardiogram shows moderately dilated left ventricle with an ejection fraction of 30 to 35%. Because of his poor study and technically limited because of his body habitus regional wall motion abnormality could not be properly assessed. Right ventricle was not well visualized. He has dilated atria bilaterally. He has mild aortic stenosis and mild mitral regurgitation and only trace of tricuspid regurgitation. Based on these findings I recommend that he be treated for ischemic heart disease with dual antiplatelet therapy and low-dose beta-china in addition to his losartan. Furthermore he is mildly volume overloaded as evidenced by his bilateral leg edema and elevated proBNP and therefore I recommended that we double up his Lasix. I recommend that he see a conservation officer and get an outpatient stress test and the next 4 weeks. Because of elevated troponin he would not be a candidate for stress test in the house. With regards to his syncopal spell his indicates she did not check his blood sugar but it sounds like it was more of a hypoglycemic spell rather than a TIA or CVA. I went over the results of his MRI and MRA of his brain. Explained that there is no evidence of an acute infarct. And that the MRA showed mild stenosis in the right middle cerebral artery there is no aneurysm and no evidence of acute thrombosis. Went over his lab results with the patient and his explained his glycohemoglobin A1c is down to 4.8% which suggests his diabetes may be too tightly controlled. I explained to both him that would like him to stay today while we adjust some of his medicines and start him on a beta-china along with the dual antiplatelet therapy. I think he should talk with an elevator troubleshooter or his primary care provider but alternative antihyperlipidemic medications since he is not not able to take statins due to his myopathy. I also think that his glipizide should be discontinued and he should be considered for GLP-1 agonist or an SGLT2 inhibitor which would help with his cardiomyopathy and renal failure as well as his diabetes. Exam Narrative Exam Narrative: Morbidly obese gentleman lying in bed in no discomfort or distress. Lungs with faint bibasilar rales no rhonchi or wheezes Heart with distant heart tones but regular and no appreciable murmur or rub Abdomen morbidly obese soft nontender Lower extremities with 1+ pitting pedal and ankle edema. Objective Last Vital Signs Temp 36.5 C 04/11/21 11:35 Pulse 77 04/11/21 11:35 Resp 18 04/11/21 11:35 BP 126/74 04/11/21 11:35 Pulse Ox 97 04/11/21 11:35 Laboratory Results - last 24 hr 04/10/21 04/10/21 04/10/21 13:05 13:05 15:00 WBC 4.57 RBC 3.81 L Hgb 12.2 L Hct 39.9 L MCV 104.7 H MCH 32.0 MCHC 30.6 L RDW 15.8 H Plt Count 68 L MPV 10.7 Immature Gran % 0.4 Neutrophils % 72.6 Lymphocytes % 10.1 Monocytes % 9.0 Eosinophils % 6.8 Basophils % 1.1 Nucleated RBC % 0 Absolute Neutrophils 3.32 Absolute Lymphocytes 0.46 L Absolute Monocytes 0.41 Absolute Eosinophils 0.31 Absolute Basophils 0.05 RBC Morphology See Below Polychromasia Present Poikilocytosis 2+ Macrocytosis 1+ Sodium 142 Potassium 4.2 Chloride 108 H Carbon Dioxide 28.1 Anion Gap 5.9 BUN 53 H Creatinine 1.7 H Estimated GFR/1.73 m2 40.91 Glucose 60 L Hemoglobin A1c Calcium 8.7 Magnesium 1.7 L Total Bilirubin 0.5 AST 49 H ALT 39 Alkaline Phosphatase 143 H Creatine Kinase CK Isoenzymes Spec Troponin I 0.73 H* NT-Pro-B Natriuret Pep Total Protein 8.2 Albumin 2.9 L COVID-19 Source Nasal/Nares SARS-CoV-2 (PCR) Negative 04/10/21 04/10/21 04/10/21 15:12 15:12 16:05 WBC RBC Hgb Hct MCV MCH MCHC RDW Plt Count MPV Immature Gran % Neutrophils % Lymphocytes % Monocytes % Eosinophils % Basophils % Nucleated RBC % Absolute Neutrophils Absolute Lymphocytes Absolute Monocytes Absolute Eosinophils Absolute Basophils RBC Morphology Polychromasia Poikilocytosis Macrocytosis Sodium Potassium Chloride Carbon Dioxide Anion Gap BUN Creatinine Estimated GFR/1.73 m2 Glucose Hemoglobin A1c Calcium Magnesium Total Bilirubin AST ALT Alkaline Phosphatase Creatine Kinase 478 H CK Isoenzymes Spec Troponin I 0.72 H* NT-Pro-B Natriuret Pep 7207 H Total Protein Albumin COVID-19 Source SARS-CoV-2 (PCR) 04/10/21 04/11/21 04/11/21 18:16 06:49 06:49 WBC RBC Hgb Hct MCV MCH MCHC RDW Plt Count MPV Immature Gran % Neutrophils % Lymphocytes % Monocytes % Eosinophils % Basophils % Nucleated RBC % Absolute Neutrophils Absolute Lymphocytes Absolute Monocytes Absolute Eosinophils Absolute Basophils RBC Morphology Polychromasia Poikilocytosis Macrocytosis Sodium Potassium Chloride Carbon Dioxide Anion Gap BUN Creatinine Estimated GFR/1.73 m2 Glucose Hemoglobin A1c 4.8 Calcium Magnesium Total Bilirubin AST ALT Alkaline Phosphatase Creatine Kinase CK Isoenzymes Spec Troponin I 0.77 H* 0.45 H* NT-Pro-B Natriuret Pep Total Protein Albumin COVID-19 Source SARS-CoV-2 (PCR) 04/11/21 06:49 WBC RBC Hgb Hct MCV MCH MCHC RDW Plt Count MPV Immature Gran % Neutrophils % Lymphocytes % Monocytes % Eosinophils % Basophils % Nucleated RBC % Absolute Neutrophils Absolute Lymphocytes Absolute Monocytes Absolute Eosinophils Absolute Basophils RBC Morphology Polychromasia Poikilocytosis Macrocytosis Sodium Potassium Chloride Carbon Dioxide Anion Gap BUN Creatinine Estimated GFR/1.73 m2 Glucose Hemoglobin A1c Calcium Magnesium Total Bilirubin AST ALT Alkaline Phosphatase Creatine Kinase Cancelled CK Isoenzymes Spec Cancelled Troponin I NT-Pro-B Natriuret Pep Total Protein Albumin COVID-19 Source SARS-CoV-2 (PCR)
[2021-04-11] MEDS: Clopidogrel 300 MG TAB PO (14:13)
[2021-04-11] MEDS: Aspirin 81 MG CHEW 324 MG CH (14:13)
--- NOTE | 2021-04-11 16:19 | CHAPLAIN ---
Bucky was resting in bed when I visited. I explained my role and offered support. Chris said he used to live in [facility], but lives in [place] now. He's been in touch with family, and seems to be comfortable being here.
[2021-04-11] MEDS: Furosemide 20 MG TAB PO (16:49)
--- NOTE | 2021-04-11 19:08 | PDOC.CMIN ---
- If Service Date Differs Date of service: 04/11/21 Time of Service: 19:08 Care Management Initial Assess REASON FOR HOSPITALIZATION:: Elevated troponin, CHF PAST MEDICAL HISTORY/PAST SURGICAL HISTORY:: Diabetes mellitus. Essential hypertension. Hypercholesterolemia. Inclusion body myositis. Kidney stone. 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 Colonoscopy - MAC (~2009). EGD - MAC (~2009). LITHOTRIPSY. MUSCLE BIOPSY. POWER PORT. Repair of umbilical hernia PREVIOUS FUNCTIONAL STATUS/SOCIAL/FAMILY SUPPORTS:: Resides in [place] with , Bethanie. Independent at baseline in the community, utilizes a cane with ambulation. CURRENT FUNCTIONAL STATUS:: Bucky was sitting up in his chair, watching television when CM met with him. He was quite smiling and pleasant in interaction. He shared no concerns and verbalized understanding of his plan of care, including outpatient follow up. He reported anticipating he would discharge tomorrow. Has patient been provided with info about the portal/API?: Yes Did the patient sign up for the portal?: Yes (Previously ) CODE STATUS:: Full Code INSURANCE COVERAGE / FINANCIAL ISSUES:: MCR. Financial Asst 100 CURRENT HOME/COMMUNITY SERVICES/EQUIPMENT:: Ramp, raised toilet seat, w/c, FWW, cane. PRIMARY CARE PHYSICIAN:: Jazmine Baer POTENTIAL DISCHARGE NEEDS:: Follow up appoinment with cardiology, Outpatient MPI Stress Test, new medications. PATIENT/FAMILY EDUCATION NEEDS:: Review discharge instructions, discuss Ask Me Three. ANTICIPATED BARRIERS TO DISCHARGE:: None identified at this time. TRANSPORTATION:: Via private vehicle with his . PLAN:: Bucky will return home when ready per MD. He will have outpatient follow up appointments with Cardiology and for a stress test (4-6 weeks). Per MD, he will have new prescriptions as well. He will follow up with his PCP and plan of care as prescribed and transport via private vehicle with his .
[2021-04-11] MEDS: Carvedilol 3.125 MG TAB PO (19:56)
[2021-04-11] MEDS: Magnesium Oxide 400 MG TAB PO (19:56)
[2021-04-11] MEDS: Insulin Glargine 300 UNITS/3 ML PEN 25 UNITS SC (22:04)
[2021-04-12 03:26] VITALS: BP 135/75; PULSE 95; RESP 17; TEMP 36.7; O2SAT 95
[2021-04-12 07:26] LABS: BUN 57 mg/dL (7-18); CREATININE 1.6 mg/dL (0.70-1.30); Calcium 8.4 mg/dL (8.5-10.1); Chloride 110 mmol/L (98-107); Estimated GFR 43.87 (mL/min/1.73m2); Glucose 119 mg/dL (74-106); NT-proBNP 4532 pg/mL (<300); Potassium 4.3 mmol/L (3.5-5.1); Sodium 144 mmol/L (136-145)
[2021-04-12 07:29] LABS: Troponin I 0.35 ng/mL (<0.06)
[2021-04-12 07:56] VITALS: BP 158/97; PULSE 99; RESP 17; TEMP 36.8; O2SAT 95
[2021-04-12] MEDS: Magnesium Oxide 400 MG TAB PO (08:39)
[2021-04-12] MEDS: Aspirin E.C. 81 MG TABEC PO (08:40)
[2021-04-12] MEDS: Losartan 50 MG TAB PO (08:40)
[2021-04-12] MEDS: Furosemide 20 MG TAB PO (08:40)
[2021-04-12] MEDS: Allopurinol 100 MG TAB 400 MG PO (08:40)
[2021-04-12] MEDS: Carvedilol 3.125 MG TAB PO (08:40)
[2021-04-12] MEDS: Clopidogrel 75 MG TAB PO (08:40)
[2021-04-12 11:22] VITALS: BP 137/83; PULSE 75; RESP 17; TEMP 36.4; O2SAT 96
--- NOTE | 2021-04-12 13:06 | DSE_ITS ---
Date of service: 04/12/21 Time of Service: 13:06 DS: Diagnosis Discharge Diagnosis (1) NSTEMI (non-ST elevated myocardial infarction): Status: Acute Asessment and Plan: see below (2) Elevated troponin: Status: Acute Asessment and Plan: Patient did not present w/ any acute chest pain or pressure. He was initially sent in for evaluation of what was believed to be stroke like or TIA like symptoms. his MRI and MRA did not show evidence for stroke but labs demonstrated elevated troponin of 0.72 and 0.77 which declined the next morning to 0.45 and was down to 0.35 on the day of his discharge. It is believed that he may have experienced a recent NSTEMI. His EKG did not demonstrate any acute ST elevation or depression but he had nonspecific T wave abnormalities in the lateral leads. His echocardiogram which was technically difficult, demonstrated a cardiomyopathy w/ moderately dilated LV and reduced LVEF of 30 to 35%, regional wall abnormalities could not be assessed. He as started on DAPT w/ Plavix and ASA and was begun on low dose carvedilol and his lasix was increased to 40 mg bid. He was kept on his losartan 50 mg daily. He was advised that he needs either a cardiac cath or at least a stress MPI to determine his ischemic burden and if he has a large area of ischemia then he wo uld need a catheterization. As he was feeling fine and felt to be back to his baseline, he was discharged home on the above changes and an follow up appointment was made for him to see a bucket turner at [facility] on April 20. he was instructed that should he have chest pain or pressure or sudden worsening dyspnea he should return to the emergency room. He was given an Rx for prn NTG and information about ACS (3) Cardiomyopathy: Status: Acute Asessment and Plan: patient's lasix was increased to 40 mg bid, carvedilol 3.12 mg bid was started and he was kept on his losartan 50 mg daily (although the HCTZ component was stopped). Patien was put on DAPT (Plavix and ASA). He will be set up for follow up w/ cardiology in couple of weeks and a stress Lexiscan in 4 weeks). Patient was started on Farxiga for his DM and for his CM (4) Diabetes mellitus: Status: Chronic Asessment and Plan: Lantus was reduced to 50 units and his glipizide was stopped d/t low glucose readings and an A1c of 4.8%. Farxiga was added for both his DM and his CM Discharge Plan Disposition Patient Disposition: HOME Condition: Improving Discharge Details Reason For Visit: Elevated Troponin, CHF Admit Date/Time: 04/10/21 19:13 Admit Provider: Chris Rossi Attending Provider: Chris Rossi Primary Care Provider: Jazmine Baer V Home Meds and New Rx's Prescriptions: New aspirin 81 mg Tablet,Delayed Release (Dr/Ec) 81 mg PO DAILY Qty: 100 RF: 0 carvedilol 3.125 mg Tablet 3.125 mg PO BID Qty: 60 RF: 1 clopidogrel 75 mg Tablet 75 mg PO DAILY Qty: 30 RF: 1 magnesium oxide 400 mg (241.3 mg magnesium) Tablet 400 mg PO BID Qty: 60 RF: 1 furosemide 40 mg tablet 40 mg PO BID Qty: 60 RF: 0 canagliflozin 100 mg tablet 100 mg PO DAILY Qty: 30 RF: 1 losartan 50 mg tablet 50 mg PO DAILY Qty: 30 RF: 1 nitroglycerin 0.4 mg tablet, sublingual 0.4 mg sublingual Q5-15M PRNQty: 30 RF: 0 Continued ondansetron [Zofran ODT] 4 MG tablet,disintegrating 4 mg PO Q4H PRN RF: 0 Humalog U-100 Insulin 100 UNIT/1 ML cartridge 100 unit SQ AC RF: 0 GAMAGUARD IVIG MONTHLY FOR 2 DAYS RF: 0 multivitamin [Daily Multi-Vitamin] 1 EACH tablet 1 tab PO DAILY RF: 0 omeprazole 40 MG capsule,delayed release(DR/EC) 40 mg PO DAILY PRN RF: 0 terazosin 5 mg capsule 5 mg PO DAILY RF: 0 allopurinol 100 mg tablet 400 mg PO DAILY RF: 0 Changed Lantus Solostar U-100 Insulin 100 UNIT/1 ML insulin pen 50 unit SQ HS Qty: 0 RF: 0 Discontinued indomethacin 50 MG capsule 50 mg PO Q8H PRN RF: 0 Lantus U-100 Insulin 100 UNIT/ML solution 10 units SQ DAILY RF: 0 losartan-hydrochlorothiazide 50-12.5 mg tablet RF: 0 glipizide [Glucotrol XL] 10 mg Tablet Extended Release 24hr 10 mg PO DAILY RF: 0 furosemide 20 mg tablet 20 mg PO DAILY RF: 0 Discharge Instructions Instructions: Furosemide (By mouth), Carvedilol (By mouth), Clopidogrel (By mouth), Dapagliflozin (By mouth), Heart Failure (DC), Dilated Cardiomyopathy (DC), Acute Coronary Syndrome (DC) Additional Instructions: You were evaluated for stroke like symptoms. Your MRI of the brain and MRA of the vessels of the brain and neck did not show a stroke nor did it show any significant narrowing or aneurysm. However you have small vessel disease from diabetes mellitus and hypercholesterolemia. During your evaluation you had labs that showed an elevated troponin I. This enzyme is specific to heart muscle and is used to help identify a heart attack. Your troponin levels high enough above normal to warrant further workup. Your EKG did not who an acute heart attack and your troponin level declined overnight. However an ultrasound of your heart (also called an echocardiogram) demonstrated moderate impairment of your hearts ability to pump adequately. This is called a cardiomyopathy. Cardiomyopathy developes in patients who have hypertension, diabetes and those who have ischemic heart disease (i.e. blocked coronary arteries). This also can develope in people who have had a viral illness of the heart or those who drink excessive amounts of alcohol. We would like for you to follow up with a bucket turner and get a stress test in about 4 weeks. Your bucket turner may want to forego the stress test and refer you for cardiac catheterization. This is an invasive examine to directly look at your coronary arteries to document and treat any blocked coronary arteries. If you have the stress test and it is abnormal then you will be referred for a cardiac catheterization. You have been put on medications to help with the cardiomyopathy including Farxiga, losartan (which you already were on), carvedilol (a beta china) and your lasix dose was increased to 40 mg twice a day. You should weigh yourself daily and report any sudden weight increase over 2 lbs in a day or increasing legs/foot edema or worsening shortness of breath. Your transient stroke like symptoms, acute confusion, slurred speech which occurred the day prior to your admission may have been a TIA or more likely was due to low glucose readings. We did a glycohemoglobin A1c which measures ferry terminal supervisor glucose control. Your level was 4.8% which is rather low. In diabetes the goal is for an A1c below 7%. You probably have been having frequent lows. Glucose goals should be fasting under 110 and post prandial (i.e. glucose taken 2 hr after eating) under 180. Your A1c should be between 5.8 and 7%. We decrea sed your Lantus dose by 25 units to 50 units. If your fasting glucose climbs over 120 mg/dL then increase your evening Lantus gradually by 5 units with a goal of 90 to 120. Stand Alone Forms: Nursing Discharge Form Referrals: Jazmine Baer MD [Primary Care Provider] - 04/27/21 8:45 am Fiona Cruz MD [ [facility] STAFF PHYSICIAN] - 04/20/21 11:20 am (Referral sent and appt made for discharge) Activity:: Activity as Tolerated Equipment/Supplies:: No Equipment Needed Diet:: Carb Counting Discharge Orders Discharge Orders: Discharge Order (Routine); Ordered 04/12/21 Ordered By: Leoncio Correa Other Ambulatory Orders: Basic Metabolic Panel (Routine) Timeframe: 1 Week Facility: [facility] - Location: Laboratory Outpatient Ordered By: Leoncio Correa Magnesium (Routine) Timeframe: 1 Week Facility: [facility] - Location: Laboratory Outpatient Ordered By: Leoncio Correa MPI Resting & Stress GRP (Routine) Timeframe: 4 Weeks Facility: [facility] - Location: DIAGNOSTIC IMAGING DEPT Ordered By: Leoncio Correa NT-proBNP (Routine) Timeframe: 1 Week Facility: [facility] - Location: Laboratory Outpatient Ordered By: Leoncio Correa Discharge Data Discharge Date/Time-TO BE ENTERED AT DEPARTURE: 04/12/21 14:00 DS: Summary Time Spent with Patient providing and/or coordinating discharge services: Greater than 30 minutes Status at Discharge Functional status at discharge: independent ambulation Overall status at discharge: patient is back to baseline Mental Status: mental status grossly normal Speech and Movement: speech and movement normal Mood: congruent mood Affect: normal affect Exam Narrative Exam Narrative: Morbidly obese gentleman lying in bed in no discomfort or distress. Lungs with faint bibasilar rales no rhonchi or wheezes Heart with distant heart tones but regular and no appreciable murmur or rub Abdomen morbidly obese soft nontender Lower extremities with 1+ pitting pedal and ankle edema. Psych Mental Status: mental status grossly normal Speech and Movement: speech and movement normal Mood: congruent mood Affect: normal affect DS: Data Vitals/I&O Vitals and I&O: Vital Signs Temperature 36.4 C L 04/12/21 11:22 Temperature Source Tympanic 04/12/21 11:22 Pulse 75 04/12/21 11:22 Pulse Rhythm Regular 04/12/21 08:41 Pulse 79 04/10/21 18:11 Respiratory Rate 17 04/12/21 11:22 Respiratory Effort Non-Labored 04/12/21 08:41 Respiratory Depth Shallow 04/12/21 08:41 Respiratory Pattern Normal 04/12/21 08:41 Blood Pressure 137/83 04/12/21 11:22 Blood Pressure Mean 91 04/10/21 18:01 Blood Pressure Position Sitting 04/10/21 10:22 Pulse Oximetry 96 04/12/21 11:22 Oxygen Delivery Method Room Air 04/12/21 11:22 Oxygen Flow Rate 0 04/12/21 11:22 Pain Level 0 04/12/21 11:22 Comment 04/12/21 08:35 Intake & Output 04/11/21 04/12/21 04/12/21 23:59 11:59 23:59 Intake Total 480 / 1270 790 / 1030 240 / 1030 Output Total 1200 / 2300 700 / 700 Balance -720 / -1030 90 / 330 240 / 330 Intake: Oral 480 / 1270 790 / 1030 240 / 1030 Output: Urine 1200 / 2300 700 / 700 Other: Urine Color Yellow Yellow Urine Appearance Clear Clear Urine Odor Normal Normal Comment Per pt. report, void x3 in the toilet (urine amount is from most recent void). Stool Size Moderate Stool Characteristics Soft Voiding Methods Urinal Toilet Data Completed and Pending Labs on day of discharge: Labs from last 24 hours 04/12/21 04/11/21 06:35 06:49 Sodium 144 Potassium 4.3 Chloride 110 H Carbon Dioxide 30.0 Anion Gap 4.0 BUN 57 H Creatinine 1.6 H Estimated GFR/1.73 m2 43.87 Glucose 119 H Calcium 8.4 L Creatine Kinase Pending Troponin I 0.35 H* NT-Pro-B Natriuret Pep 4532 H PFSH Medical History (Updated 04/12/21 @ 21:32 by Leoncio Correa) Chronic kidney disease Diabetes mellitus Essential hypertension Hypercholesterolemia Inclusion body myositis Kidney stone Medication monitoring encounter MYOPATHY DUE TO DRUGS Surgical History Colonoscopy - MAC (~2009) EGD - MAC (~2009) LITHOTRIPSY MUSCLE BIOPSY POWER PORT Repair of umbilical hernia Family History Mother Renal failure syndrome Diabetes Personal history of malignant neoplasm COLON Father No problems noted. Sister Diabetes PATERNAL UNCLE Personal history of malignant neoplasm STOMACH Social History Smoking/Tobacco Use Status: Never Smoking risk assessment performed?: Yes Alcohol Intake: never Drug use: Never Do you feel safe at home: Yes Do you feel safe in your relationship?: Yes
[2021-04-12] MEDS: Heparin 500 UNITS/5 ML SYRINGE IVP (13:16)
[2021-04-12] MEDS: Normal Saline Flush 10 ML SYR (13:21)
--- NOTE | 2021-04-12 17:08 | PDOC.CMDIS ---
- If Service Date Differs Date of service: 04/12/21 Time of Service: 17:08 LACE Index Scoring Tool - Questions: Length of Stay (in days): 2 Acuity (Admit via E.D.?): Yes Comorbidities: Diabetes w/o Complication, Mild Liver/Renal Disease E.D. Visits: 1 - Answers: Total Score: 9 Risk of Readmission: Low Risk Care Management Discharge Reason for Hospitalization: Elevated troponin, CHF Discharge Plan: Bucky will return home today with no new services. He will be driven home via private vehicle by family. He will follow up with his PCP and discharge plan of care. Patient/Family Education Needs: Review discharge instructions regarding activity levels and medications, discussion of self care needs including ask me three.
[2021-04-13 08:53] LABS: Creatine Kinase 341 U/L (39 - 308)
[2021-04-13 09:37] LABS: Myoglobin, S 47 mcg/L (<=90)
[2021-04-13 09:37] LABS: Myoglobin, U 20 mcg/L (<=65)
[2021-04-13 16:49] LABS: BB Fraction 0 % (0); MB Fraction 0 % (0); MM Fraction 100 % (100)
== END 2021-04-12 14:00 | disposition home or self-care (01) ==
LOC: ER 20:08 → MS 20:24
PROVIDERS: Internal Medicine; Physician Assistant; Admitting Provider General Practice; Emergency Provider Physician Assistant; PCP Family Medicine; Visit Provider General Practice
DX: I21.4 Non-ST elevation (NSTEMI) myocardial infarction (principal); R53.1 Weakness; E11.649 Type 2 diabetes mellitus with hypoglycemia without coma; R47.81 Slurred speech; R06.09 Other forms of dyspnea; R55 Syncope and collapse; Z79.84 Long term (current) use of oral hypoglycemic drugs; Z79.4 Long term (current) use of insulin; M79.89 Other specified soft tissue disorders; I42.0 Dilated cardiomyopathy; Z68.41 Body mass index [BMI] 40.0-44.9, adult; Z23 Encounter for immunization; E78.00 Pure hypercholesterolemia, unspecified; G72.41 Inclusion body myositis [IBM]; Z20.822 Contact with and (suspected) exposure to COVID-19; G72.0 Drug-induced myopathy; N18.32 Chronic kidney disease, stage 3b; I12.9 Hypertensive chronic kidney disease with stage 1 through stage 4 chronic kidney disease, or unspecified chronic kidney disease; E11.22 Type 2 diabetes mellitus with diabetic chronic kidney disease; E66.01 Morbid (severe) obesity due to excess calories
CPT/HCPCS: 36416; 70544; 80048; 80053; 82550; 82962; 87635; 90686; 93005; 93306; 96374; 99285; 70450; 70551; 71046; 81003; 81015; 82552; 83036; 83735; 83874; 83880; 84484; 85025; 93010; 99217; 99219; 99225; G0378; J1940

== ENCOUNTER 2021-04-20 09:28 | Outpatient (CLI) | payer MEDICARE, SELFPAY ==
--- NOTE | 2021-04-20 09:15 | RT.EKG_ITS ---
APPROVED REPORT Exam: Resting ECG Reason for Exam: DC Patient Location: O HR:81 bpm ECG Measurements Heart Rate 81 AXIS VA 159 P 48 QRSd 120 QRS -16 QT 395 T 204 QTc 459 Conclusion Sinus rhythm...normal P axis, V-rate 50- 99 Probable left atrial enlargement...P >50mS, <-0.10mV V1 LVH with IVCD and secondary repol abnrm...multi-criteria, wQRSd, abnr ST-T
== END 2021-04-20 09:29 | disposition home or self-care (01) ==
LOC: DI.CARD 09:29
PROVIDERS: PCP Family Medicine; Visit Provider Internal Medicine Cardiovascular Disease
DX: I21.4 Non-ST elevation (NSTEMI) myocardial infarction (principal)
CPT/HCPCS: 93010

== ENCOUNTER → 2021-04-20 11:01 | Outpatient (BNVA) | payer MEDICARE, SELFPAY | PROVIDERS: PCP Family Medicine; Referring Provider Family Medicine; Visit Provider Internal Medicine Cardiovascular Disease | DX: I42.0 Dilated cardiomyopathy (principal); R77.8 Other specified abnormalities of plasma proteins; G72.49 Other inflammatory and immune myopathies, not elsewhere classified; I21.4 Non-ST elevation (NSTEMI) myocardial infarction | CPT/HCPCS: 93005; 99203; 99214 ==

== ENCOUNTER 2021-04-24 01:37 | Outpatient (CLI) | payer MEDICARE, SELFPAY ==
--- NOTE | 2021-04-24 06:30 | DI.NM_ITS ---
APPROVED REPORT Exam: Pharmacologic Patient Location: Out-Patient Room/Bed: Stress Nurse: Rosalinda Eden RN Ordering Provider:GARIMA RAYO, Contact Number: [phone] BMI: 43.55 Baseline Rhythm: Sinus Rhythm Comment: Nonspecific T abnormalities inferior and lateral leads Indications: Dyspnea, new cardiomyopathy, elevated troponin level Medical History Medical History: Hypertension, hyperlipidemia, diabetes, obesity, chronic kidney disease, autoimmune myopathy Cardiac Medications: Clopidogrel, aspirin, losartan, furosemide, magnesium oxide, omeprazole, nitrogl ycerin, lantus insulin, humalog insulin Allergies: Methotrexate, morphine, statins Cardiac Risk Factors: Hypertension, hyperlipidemia, diabetes, obesity, family hx Previous Cardiac Procedures: None Pretest Chest Pain Characteristics: None Exercise History: Sedentary Physical Disabilities: BLE myopathy Lung Sounds: Clear to auscultation Heart Sounds: Regular Stress Test Details Test: Exercise stress converted to pharmacologic stress due to failure to obtain a diagnostic stress test. Reason for pharmacologic stress test: changed from exercise stress test due to inability to reach t arget heart rate. Nuclear Acquisition: Rest Tc-99m/Stress Tc-99m 1 day Rest Isotope: Tc-99m Sestamibi. Dose: 14.5 Date: 04/24/2021 Injection Time: 0945 Stress Isotope: Tc-99m Sestamibi. Dose: 46.2 Date: 04/24/2021 Injection Time: 1140 HR Resting HR Supine: 94 bpm Max Heart Rate (APMHR): 157.409897 bpm Resting HR Standin bpm Target HR (85% APMHR): 133.836011 bpm Max HR Achieved: 124 bpm % of APMHR: 78.98 Recovery HR: 98 bpm BP Resting BP Supine: 140/100 mmHg Resting BP Standin/98 mmHg Max BP: 150/90 mmHg Recovery BP: 124/90 mmHg ECG Resting ECG: Sinus Rhythm, nonspecific ST-T abnormalities inferior and lateral leads Ectopy: Rare PVCs Comment: Flipped T waves inferior leads Stress ECG: Sinus Tachycardia ST Change: Nondiagnostic resting ST abnormalities Arrhythmia: None Comment: Flipped T waves inferior leads Recovery ECG: Sinus Rhythm Recovery ST Change: Nondiagnostic resting ST abnormalities Recovery Arrhythmia: None Comment: Flipped T waves inferior leads Clinical Stress Symptoms: Dyspnea Exercise capacity: 3.83 METs Rate Pressure Product: [id number] Stress ECG Conclusion 1. Resting electrocardiogram showed left ventricular hypertrophy with repolarization abnormalities, I VCD 2. Patient underwent pharmacologic stress with regadenoson, coupled with low-level exercise 3. Peak workload achieved was 3.83 METS. The patient achieved 78% of predicted heart rate for age 2. Electrocardiographically the test was nondiagnostic due to inadequate heart rate and resting elect rocardiographic abnormalities Stress Test Summary STAGE Time (mins) Speed (mph) Grade (%) HR BP SYMPTOMS METS Supine 94 140/100 Standing 97 138/98 SpO2 97% 1 3 1.7 10 124 SpO2 97% 4.6 1 min post Lexiscan injection 122 150/90 SpO2 97%, mild SOB 3 min post Lexiscan injection 107 148/94 SpO2 98%, symptoms resolved 6 min post Lexiscan injection 98 124/90 SpO2 97% Pt exercised for approximately 1 min 45 sec when pt stated he can no longer exercise due to fatigue a nd muscle weakness in legs. Vika injected, pt reported mild SOB. After 3 minutes in recovery pt state d symptoms resolved. MPI Conclusion LV is dilated with global hypokinesis EF 27% No definite ischemia or evidence of prior infarction Radiologist Interpretation Radiologist agrees with Senior Mechanical Engineer's Interpretation. Radiologist Interpretation by: Slade Johnson MD Interpretation Date/Time: 04/26/2021 11:12:21
[2021-04-24] MEDS: Regadenoson 0.4 MG/5 ML SYR IVP (12:05)
== END 2021-04-24 01:57 ==
PROVIDERS: PCP Family Medicine; Visit Provider Internal Medicine
DX: I42.9 Cardiomyopathy, unspecified (principal); R77.8 Other specified abnormalities of plasma proteins; R06.00 Dyspnea, unspecified; I10 Essential (primary) hypertension; E78.5 Hyperlipidemia, unspecified; E11.9 Type 2 diabetes mellitus without complications; E66.9 Obesity, unspecified; Z82.49 Family history of ischemic heart disease and other diseases of the circulatory system; R94.39 Abnormal result of other cardiovascular function study; R94.31 Abnormal electrocardiogram [ECG] [EKG]
CPT/HCPCS: 78452; 93016; 93018; 93017; J2785

== ENCOUNTER 2021-05-01 01:40 | Outpatient (RCR) | payer MEDICARE, SELFPAY ==
[2021-04-10 00:11] VITALS: BP 136/81; PULSE 64; RESP 17; TEMP 36.6
[2021-04-17 07:25] VITALS: BP 121/73; PULSE 72; RESP 20; TEMP 37.2; O2SAT 96
[2021-04-17 07:26] LABS: Abs Immature Grans 0.01 10^3/uL (0.0-0.06); Absolute Basophil Count 0.06 10^3/uL (0.0-0.2); Absolute Eosinophil Count 0.66 10^3/uL (0.0-0.7); Absolute Lymphocyte Count 0.49 10^3/uL (1.2-3.4); Absolute Monocyte Count 0.49 10^3/uL (0.1-0.8); Absolute Neutrophil Count 3.64 10^3/uL (1.2-6.7); Basophils % 1.1; Eosinophils % 12.3; HCT 42.3 % (40.0-50.0); HGB 13.4 g/dL (13.5-17.5); Immature Grans % 0.2; Lymphocytes % 9.2; MCH 32.2 pg (27.0-33.0); MCHC 31.7 % (32.0-36.0); MCV 101.7 fL (80-95); Monocytes % 9.2; Nucleated RBC 0 %; RBC 4.16 10^6/uL (4.36-5.78); RDW 14.6 % (11.8-14.1); RDW-SD 54.7 fL; WBC 5.35 10^3/uL (4.4-10.8)
[2021-04-17] MEDS: IMMUNE GLOBULIN 5 GM/50 ML BTL IVPB (07:26)
[2021-04-17] MEDS: Normal Saline Flush 10 ML SYR IVP (07:26)
[2021-04-17 07:40] VITALS: BP 125/74; PULSE 70; RESP 18; TEMP 37.1; O2SAT 95
[2021-04-17 07:43] LABS: C-Reactive Protein 2.39 mg/dL (0.0-0.3); CREATININE 1.7 mg/dL (0.70-1.30); Estimated GFR 40.91 (mL/min/1.73m2)
[2021-04-17] MEDS: IMMUNE GLOBULIN 10 GM/100 ML BTL IVPB (07:43)
[2021-04-17 07:57] VITALS: BP 121/74; PULSE 73; RESP 18; TEMP 36.8; O2SAT 97
[2021-04-17 08:06] LABS: Platelet Count 74 10^3/uL (130-400)
[2021-04-17] MEDS: IMMUNE GLOBULIN 40 GM/400 ML BTL IVPB ×3 (08:17→10:11)
[2021-04-17 08:28] VITALS: BP 131/72; PULSE 66; RESP 18; TEMP 37; O2SAT 97
[2021-04-17 08:58] VITALS: BP 144/77; PULSE 66; RESP 22; TEMP 36.9; O2SAT 98
[2021-04-17 09:30] VITALS: BP 135/77; PULSE 66; RESP 20; TEMP 37.1; O2SAT 97
[2021-04-17 16:21] LABS: Creatine Kinase 449 U/L (39-308)
[2021-04-18] VITALS (7 sets, daily range): BP systolic 120–152; BP diastolic 74–87; PULSE 62–74; RESP 18–20; TEMP 36.1–36.6; O2SAT 96–99
[2021-04-18] MEDS: Normal Saline Flush 10 ML SYR IVP (07:09)
[2021-04-18] MEDS: Heparin 500 UNITS/5 ML SYRINGE IV (07:09)
[2021-04-18] MEDS: IMMUNE GLOBULIN 5 GM/50 ML BTL IVPB (07:25)
[2021-04-18] MEDS: IMMUNE GLOBULIN 10 GM/100 ML BTL IVPB (08:02)
[2021-04-18] MEDS: IMMUNE GLOBULIN 40 GM/400 ML BTL IVPB ×3 (08:26→10:15)
[2021-05-01 07:22] LABS: Abs Immature Grans 0.01 10^3/uL (0.0-0.06); Absolute Basophil Count 0.06 10^3/uL (0.0-0.2); Absolute Eosinophil Count 0.45 10^3/uL (0.0-0.7); Absolute Lymphocyte Count 0.59 10^3/uL (1.2-3.4); Absolute Monocyte Count 0.47 10^3/uL (0.1-0.8); Absolute Neutrophil Count 3.48 10^3/uL (1.2-6.7); Basophils % 1.2; Eosinophils % 8.9; HCT 43.3 % (40.0-50.0); HGB 13.5 g/dL (13.5-17.5); Immature Grans % 0.2; Lymphocytes % 11.7; MCH 31.8 pg (27.0-33.0); MCHC 31.2 % (32.0-36.0); MCV 102.1 fL (80-95); MPV 11.7 fL (8.0-11.0); Monocytes % 9.3; Neutrophils % 68.7; Nucleated RBC 0 %; RBC 4.24 10^6/uL (4.36-5.78); RDW 14.4 % (11.8-14.1); RDW-SD 54.3 fL; WBC 5.06 10^3/uL (4.4-10.8)
[2021-05-01 07:59] LABS: Platelet Count 92 10^3/uL (130-400)
[2021-05-01 08:06] LABS: Anion Gap 7.7 mmol/L (3-11); BUN 62 mg/dL (7-18); CO2 27.3 mmol/L (21.0-32.0); CREATININE 1.9 mg/dL (0.70-1.30); Calcium 8.9 mg/dL (8.5-10.1); Chloride 103 mmol/L (98-107); Creatine Kinase 644 U/L (39-308); Estimated GFR 35.98 (mL/min/1.73m2); Glucose 146 mg/dL (74-106); Potassium 4.8 mmol/L (3.5-5.1); Sodium 138 mmol/L (136-145)
[2021-05-01 08:47] LABS: Iron 86 ug/dL (65-175)
[2021-05-01 09:18] LABS: Total Iron Binding Capacity 233 ug/dL (250-450); Transferrin Sat 37 % (20-55)
[2021-05-01] MEDS: Normal Saline Flush 10 ML SYR IVP (09:43)
[2021-05-01] MEDS: Heparin 500 UNITS/5 ML SYRINGE IV (09:43)
== END 2021-05-09 23:59 | disposition home or self-care (01) ==
LOC: INF 01:40
PROVIDERS: Nurse Practitioner Adult Health; PCP Family Medicine; Visit Provider Family Medicine
DX: D50.9 Iron deficiency anemia, unspecified (principal); I12.9 Hypertensive chronic kidney disease with stage 1 through stage 4 chronic kidney disease, or unspecified chronic kidney disease; N18.9 Chronic kidney disease, unspecified; D63.1 Anemia in chronic kidney disease; G72.9 Myopathy, unspecified; Z79.52 Long term (current) use of systemic steroids; Z45.2 Encounter for adjustment and management of vascular access device; M60.9 Myositis, unspecified
CPT/HCPCS: 36591; 80048; 82550; 96365; 96366; 96372; 96523; 82565; 83540; 83550; 85025; 86140; J1459

== ENCOUNTER → 2021-05-08 11:21 | Outpatient (BNVA) | payer MEDICARE, SELFPAY | PROVIDERS: PCP Family Medicine; Referring Provider Family Medicine; Visit Provider Internal Medicine Cardiovascular Disease | DX: I42.0 Dilated cardiomyopathy (principal); I10 Essential (primary) hypertension; G72.9 Myopathy, unspecified; Z71.2 Person consulting for explanation of examination or test findings; Z79.899 Other long term (current) drug therapy | CPT/HCPCS: 99214 ==

== ENCOUNTER 2021-05-29 01:20 | Outpatient (RCR) | payer MEDICARE, SELFPAY ==
[2021-05-10 00:03] VITALS: BP 152/87; PULSE 70; RESP 18; TEMP 36.2
[2021-05-15 07:15] VITALS: BP 124/66; PULSE 70; RESP 17; TEMP 37.2; O2SAT 97
[2021-05-15] MEDS: IMMUNE GLOBULIN 5 GM/50 ML BTL IVPB (07:16)
[2021-05-15] MEDS: Normal Saline Flush 10 ML SYR IVP (07:18)
[2021-05-15 07:23] LABS: Abs Immature Grans 0.01 10^3/uL (0.0-0.06); Absolute Basophil Count 0.08 10^3/uL (0.0-0.2); Absolute Eosinophil Count 0.54 10^3/uL (0.0-0.7); Absolute Monocyte Count 0.54 10^3/uL (0.1-0.8); Absolute Neutrophil Count 4.12 10^3/uL (1.2-6.7); Basophils % 1.4; Eosinophils % 9.3; HCT 42.3 % (40.0-50.0); HGB 13.6 g/dL (13.5-17.5); Immature Grans % 0.2; Lymphocytes % 8.6; MCH 32.7 pg (27.0-33.0); MCHC 32.2 % (32.0-36.0); MCV 101.7 fL (80-95); MPV 12.1 fL (8.0-11.0); Monocytes % 9.3; Neutrophils % 71.2; Nucleated RBC 0 %; RBC 4.16 10^6/uL (4.36-5.78); RDW 14.2 % (11.8-14.1); RDW-SD 54.3 fL; WBC 5.79 10^3/uL (4.4-10.8)
[2021-05-15 07:34] LABS: Platelet Count 72 10^3/uL (130-400)
[2021-05-15 07:36] LABS: C-Reactive Protein 1.69 mg/dL (0.0-0.3); CREATININE 2.2 mg/dL (0.70-1.30); Creatine Kinase 800 U/L (39-308); Estimated GFR 30.38 (mL/min/1.73m2)
[2021-05-15 07:40] VITALS: BP 98/61; PULSE 64; RESP 16; TEMP 37.1; O2SAT 95
[2021-05-15] MEDS: IMMUNE GLOBULIN 10 GM/100 ML BTL IVPB (07:40)
[2021-05-15 07:53] VITALS: BP 113/67; PULSE 66; RESP 16; TEMP 37; O2SAT 98
[2021-05-15] MEDS: IMMUNE GLOBULIN 40 GM/400 ML BTL IVPB ×3 (08:12→09:55)
[2021-05-15 08:20] VITALS: BP 116/71; PULSE 79; RESP 19; TEMP 36.9; O2SAT 95
[2021-05-15 08:50] VITALS: BP 111/71; PULSE 61; RESP 16; TEMP 36.6; O2SAT 97
[2021-05-15 09:20] VITALS: BP 117/69; PULSE 67; RESP 18; TEMP 36.9; O2SAT 98
[2021-05-16] MEDS: Heparin 500 UNITS/5 ML SYRINGE IV (07:08)
[2021-05-16] MEDS: Normal Saline Flush 10 ML SYR IVP ×2 (07:08→07:38)
[2021-05-16 07:12] VITALS: BP 125/70; PULSE 63; RESP 17; TEMP 36.8; O2SAT 98
[2021-05-16] MEDS: IMMUNE GLOBULIN 5 GM/50 ML BTL IVPB (07:37)
[2021-05-16 07:42] VITALS: BP 125/71; PULSE 63; RESP 18; TEMP 36.8; O2SAT 98
[2021-05-16 08:02] VITALS: BP 121/71; PULSE 63; RESP 18; TEMP 36.6; O2SAT 98
[2021-05-16] MEDS: IMMUNE GLOBULIN 10 GM/100 ML BTL IVPB (08:14)
[2021-05-16 08:16] VITALS: BP 144/69; PULSE 66; RESP 20; TEMP 36.8; O2SAT 97
[2021-05-16] MEDS: IMMUNE GLOBULIN 40 GM/400 ML BTL IVPB ×3 (08:35→10:22)
[2021-05-16 08:47] VITALS: BP 131/66; PULSE 66; RESP 18; TEMP 36; O2SAT 98
[2021-05-16 09:17] VITALS: BP 122/60; PULSE 62; RESP 18; TEMP 36.4; O2SAT 98
[2021-05-29] MEDS: Heparin 500 UNITS/5 ML SYRINGE IV (07:34)
[2021-05-29] MEDS: Normal Saline Flush 10 ML SYR IVP ×2 (07:34→10:51)
[2021-05-29 07:40] LABS: Abs Immature Grans 0.02 10^3/uL (0.0-0.06); Absolute Basophil Count 0.05 10^3/uL (0.0-0.2); Absolute Lymphocyte Count 0.57 10^3/uL (1.2-3.4); Absolute Neutrophil Count 6.58 10^3/uL (1.2-6.7); Basophils % 0.6; HCT 36.3 % (40.0-50.0); HGB 11.8 g/dL (13.5-17.5); Immature Grans % 0.2; Lymphocytes % 7.1; MCH 32.7 pg (27.0-33.0); MCHC 32.5 % (32.0-36.0); MCV 100.6 fL (80-95); MPV 11.6 fL (8.0-11.0); Neutrophils % 82.1; Nucleated RBC 0 %; RBC 3.61 10^6/uL (4.36-5.78); RDW 14.8 % (11.8-14.1); RDW-SD 55.2 fL; WBC 8.02 10^3/uL (4.4-10.8)
[2021-05-29 07:57] LABS: Platelet Count 68 10^3/uL (130-400)
[2021-05-29 07:59] LABS: Anion Gap 6.4 mmol/L (3-11); CO2 27.6 mmol/L (21.0-32.0); CREATININE 2.1 mg/dL (0.70-1.30); Calcium 8.9 mg/dL (8.5-10.1); Chloride 102 mmol/L (98-107); Estimated GFR 32.06 (mL/min/1.73m2); Glucose 192 mg/dL (74-106); Potassium 4.5 mmol/L (3.5-5.1); Sodium 136 mmol/L (136-145); TSH (W/Ref FT4) 3.66 uIU/mL (0.36-3.74)
[2021-05-29 08:14] LABS: BUN 98 mg/dL (7-18)
[2021-05-29 08:33] LABS: Iron 79 ug/dL (65-175); Total Iron Binding Capacity 287 ug/dL (250-450); Transferrin Sat 28 % (20-55)
[2021-05-29 08:51] LABS: Vitamin B12 1454 pg/mL (193-986)
[2021-05-29] MEDS: IRON SUCROSE COMPLEX 300 MG in Normal Saline 250 ML 176.667 MG IVPB (08:56)
== END 2021-06-09 23:59 | disposition home or self-care (01) ==
LOC: INF 01:20
PROVIDERS: Nurse Practitioner Adult Health; PCP Family Medicine; Visit Provider Family Medicine
DX: G72.0 Drug-induced myopathy (principal); M60.9 Myositis, unspecified; D50.9 Iron deficiency anemia, unspecified; R53.1 Weakness; D53.9 Nutritional anemia, unspecified; T46.6X5A Adverse effect of antihyperlipidemic and antiarteriosclerotic drugs, initial encounter; N18.9 Chronic kidney disease, unspecified; D63.1 Anemia in chronic kidney disease; I12.9 Hypertensive chronic kidney disease with stage 1 through stage 4 chronic kidney disease, or unspecified chronic kidney disease
CPT/HCPCS: 36591; 80048; 82550; 96365; 96366; 82565; 82607; 83540; 83550; 84443; 85025; 86140; J0881; J1459; J1756; J2930

== ENCOUNTER 2021-07-10 01:14 | Outpatient (RCR) | payer MEDICARE, SELFPAY ==
[2021-06-10 00:02] VITALS: BP 122/60; PULSE 62; RESP 18; TEMP 36.4
[2021-06-12] MEDS: IMMUNE GLOBULIN 5 GM/50 ML BTL IVPB (07:22)
[2021-06-12] MEDS: Normal Saline Flush 10 ML SYR IVP (07:22)
[2021-06-12 07:33] LABS: Abs Immature Grans 0.01 10^3/uL (0.0-0.06); Absolute Basophil Count 0.05 10^3/uL (0.0-0.2); Absolute Eosinophil Count 0.66 10^3/uL (0.0-0.7); Absolute Lymphocyte Count 0.47 10^3/uL (1.2-3.4); Absolute Monocyte Count 0.39 10^3/uL (0.1-0.8); Absolute Neutrophil Count 3.93 10^3/uL (1.2-6.7); Basophils % 0.9; HCT 35.8 % (40.0-50.0); HGB 11.5 g/dL (13.5-17.5); Immature Grans % 0.2; Lymphocytes % 8.5; MCHC 32.1 % (32.0-36.0); MCV 102.6 fL (80-95); MPV 11.4 fL (8.0-11.0); Monocytes % 7.1; Neutrophils % 71.3; Nucleated RBC 0 %; RBC 3.49 10^6/uL (4.36-5.78); RDW-SD 55.9 fL; WBC 5.51 10^3/uL (4.4-10.8)
[2021-06-12 07:37] VITALS: BP 101/64; BP 136/76; PULSE 68; PULSE 74; RESP 18; TEMP 36.9; O2SAT 98
[2021-06-12 07:43] LABS: CREATININE 1.9 mg/dL (0.70-1.30); Estimated GFR 35.98 (mL/min/1.73m2)
[2021-06-12 07:46] LABS: Diff Comment Diff Reviewed; Platelet Count 72 10^3/uL (130-400); Stomatocytes 2+
[2021-06-12 07:55] LABS: Creatine Kinase 883 U/L (39-308)
[2021-06-12] MEDS: IMMUNE GLOBULIN 10 GM/100 ML BTL IVPB (08:05)
[2021-06-12 08:16] VITALS: BP 116/69; PULSE 64; RESP 18; TEMP 36.8; O2SAT 99
[2021-06-12] MEDS: IMMUNE GLOBULIN 40 GM/400 ML BTL IVPB ×3 (08:23→10:17)
[2021-06-12 08:43] VITALS: BP 122/70; PULSE 62; RESP 18; TEMP 36.7; O2SAT 98
[2021-06-12 09:14] VITALS: BP 124/72; PULSE 61; RESP 20; TEMP 36.6; O2SAT 99
[2021-06-12 09:40] VITALS: BP 129/75; PULSE 63; RESP 17; TEMP 35.9; O2SAT 100
[2021-06-13 07:09] VITALS: BP 123/80; PULSE 78; RESP 17; TEMP 36.5; O2SAT 98
[2021-06-13] MEDS: Heparin 500 UNITS/5 ML SYRINGE IV (07:17)
[2021-06-13] MEDS: Normal Saline Flush 10 ML SYR IVP (07:17)
[2021-06-13] MEDS: IMMUNE GLOBULIN 5 GM/50 ML BTL IVPB (07:28)
[2021-06-13 07:50] VITALS: BP 100/61; PULSE 63; RESP 17; TEMP 36.6; O2SAT 100
[2021-06-13] MEDS: IMMUNE GLOBULIN 10 GM/100 ML BTL IVPB (07:56)
[2021-06-13 08:00] VITALS: BP 113/63; PULSE 63; RESP 20; TEMP 36.5; O2SAT 100
[2021-06-13] MEDS: IMMUNE GLOBULIN 40 GM/400 ML BTL IVPB ×3 (08:28→10:20)
[2021-06-13 08:39] VITALS: BP 111/68; PULSE 60; RESP 16; TEMP 36.6; O2SAT 99
[2021-06-13 09:10] VITALS: BP 119/71; PULSE 59; RESP 17; TEMP 36.4; O2SAT 99
[2021-06-26 07:17] LABS: Abs Immature Grans 0.01 10^3/uL (0.0-0.06); Absolute Basophil Count 0.07 10^3/uL (0.0-0.2); Absolute Eosinophil Count 0.46 10^3/uL (0.0-0.7); Absolute Lymphocyte Count 0.43 10^3/uL (1.2-3.4); Absolute Monocyte Count 0.41 10^3/uL (0.1-0.8); Absolute Neutrophil Count 4.35 10^3/uL (1.2-6.7); Basophils % 1.2; HCT 34.7 % (40.0-50.0); HGB 10.8 g/dL (13.5-17.5); Immature Grans % 0.2; Lymphocytes % 7.5; MCH 32.6 pg (27.0-33.0); MCHC 31.1 % (32.0-36.0); MCV 104.8 fL (80-95); MPV 11.9 fL (8.0-11.0); Monocytes % 7.2; Neutrophils % 75.9; Nucleated RBC 0 %; RBC 3.31 10^6/uL (4.36-5.78); RDW 15.4 % (11.8-14.1); RDW-SD 59.6 fL; WBC 5.73 10^3/uL (4.4-10.8)
[2021-06-26 07:21] LABS: Estimated GFR 33.91 (mL/min/1.73m2)
[2021-06-26 07:31] LABS: Platelet Count 79 10^3/uL (130-400)
[2021-06-26] MEDS: Normal Saline Flush 10 ML SYR IVP (07:53)
[2021-06-26 08:08] LABS: Iron 80 ug/dL (65-175); Total Iron Binding Capacity 282 ug/dL (250-450); Transferrin Sat 28 % (20-55)
[2021-06-26] MEDS: IRON SUCROSE COMPLEX 300 MG in Normal Saline 250 ML 176.667 MG IVPB (08:46)
[2021-06-26] MEDS: Heparin 500 UNITS/5 ML SYRINGE IV (10:30)
[2021-07-10] MEDS: Normal Saline Flush 10 ML SYR IVP (07:24)
[2021-07-10 07:39] LABS: Abs Immature Grans 0.01 10^3/uL (0.0-0.06); Absolute Basophil Count 0.06 10^3/uL (0.0-0.2); Absolute Eosinophil Count 0.79 10^3/uL (0.0-0.7); Absolute Lymphocyte Count 0.62 10^3/uL (1.2-3.4); Absolute Monocyte Count 0.47 10^3/uL (0.1-0.8); Absolute Neutrophil Count 3.93 10^3/uL (1.2-6.7); Eosinophils % 13.4; HCT 36.6 % (40.0-50.0); HGB 11.6 g/dL (13.5-17.5); Immature Grans % 0.2; Lymphocytes % 10.5; MCH 33.5 pg (27.0-33.0); MCHC 31.7 % (32.0-36.0); MCV 105.8 fL (80-95); MPV 11.9 fL (8.0-11.0); Neutrophils % 66.9; Nucleated RBC 0 %; RBC 3.46 10^6/uL (4.36-5.78); RDW 15.4 % (11.8-14.1); RDW-SD 60.2 fL; WBC 5.88 10^3/uL (4.4-10.8)
[2021-07-10 07:40] VITALS: BP 106/65; PULSE 63; RESP 18; TEMP 36.7; O2SAT 99
[2021-07-10] MEDS: IMMUNE GLOBULIN 5 GM/50 ML BTL IVPB (07:40)
[2021-07-10 07:59] LABS: Diff Comment Diff Reviewed; Macrocytosis 1+; Platelet Count 72 10^3/uL (130-400); Poikilocytes 1+
[2021-07-10 08:02] VITALS: BP 97/58; PULSE 58; RESP 17; TEMP 36.9; O2SAT 98
[2021-07-10] MEDS: IMMUNE GLOBULIN 10 GM/100 ML BTL IVPB (08:10)
[2021-07-10 08:20] VITALS: BP 114/57; PULSE 54; RESP 17; TEMP 36.7; O2SAT 98
[2021-07-10] MEDS: IMMUNE GLOBULIN 40 GM/400 ML BTL IVPB ×3 (08:42→10:28)
[2021-07-10 08:43] LABS: C-Reactive Protein 0.76 mg/dL (0.0-0.3); Creatine Kinase 653 U/L (39-308); Estimated GFR 33.91 (mL/min/1.73m2)
[2021-07-10 08:50] VITALS: BP 102/62; PULSE 59; RESP 17; TEMP 36.7; O2SAT 98
[2021-07-10 09:22] VITALS: BP 108/55; PULSE 59; RESP 17; TEMP 36.6; O2SAT 99
[2021-07-10 09:55] VITALS: BP 135/65; PULSE 60; RESP 17; TEMP 36.4; O2SAT 99
== END 2021-07-10 23:59 | disposition home or self-care (01) ==
LOC: INF 01:14
PROVIDERS: Nurse Practitioner Adult Health; PCP Family Medicine; Visit Provider Family Medicine
DX: D50.9 Iron deficiency anemia, unspecified (principal); N18.9 Chronic kidney disease, unspecified; D63.1 Anemia in chronic kidney disease; G72.0 Drug-induced myopathy; Z79.52 Long term (current) use of systemic steroids; Z45.2 Encounter for adjustment and management of vascular access device; M60.9 Myositis, unspecified
CPT/HCPCS: 36591; 82550; 96365; 96366; 96372; 82565; 83540; 83550; 85025; 86140; J0881; J1459; J1756

== ENCOUNTER 2021-08-01 02:39 | Outpatient (CLI) | payer MEDICARE, SELFPAY ==
--- NOTE | 2021-08-01 06:45 | DI.US_ITS ---
APPROVED REPORT EXAM: Comprehensive 2D, Doppler, and color-flow Echocardiogram Patient Location: Out-Patient Geodesist: Kerry Carranza RDCS ([place]) Indications: Check EF, Cardiomyopathy Other Information Study Quality: Fair. Technically limited study due to body habitus. Conclusion Left ventricle is moderately dilated. Wall thickness is normal. Estimated ejection fraction is 30 t o 35% with global hypokinesis Normal right ventricular size and systolic function Mildly dilated left atrium. Normal right atrial size Aortic valve is sclerotic with mild stenosis, trace regurgitation Mild mitral annular calcification. Mild mitral regurgitation Normal tricuspid valve with trace to mild regurgitation Mildly dilated ascending aorta measuring 3.68 cm Wall motion Left Ventricle Left ventricle is moderately dilated. Left ventricular systolic function is moderately decreased. The re is normal left ventricular wall thickness. There is global hypokinesis of the left ventricle. Ther e is no ventricular septal defect visualized. LVEF is 30-35%. Right Ventricle Right ventricle is grossly normal in size. Right ventricular systolic function is grossly normal. The RVSP is 23.9mmHg. Atria Left atrium is mildly dilated. The right atrium size is normal. The interatrial septum is intact with no evidence for an atrial septal defect. Aortic Valve Aortic valve is calcified. Number of aortic valve leaflets could not be assessed. Mild aortic stenosi s. Peak aortic valve gradient is 26.7mmHg. Highest mean aortic valve gradient is 16.1mmHg. Peak aorti c valve gradient is 26.7mmHg. Calculated LILIA by the continuity equation is 1.69cm2. Trace aortic regu rgitation. Mitral Valve Mild mitral annular calcification. No evidence of mitral valve stenosis. Mild mitral regurgitation. Tricuspid Valve The tricuspid valve is normal in structure. There is no tricuspid valve stenosis. Trace to mild tricu spid regurgitation. Pulmonic Valve The pulmonary valve is normal in structure. There is no pulmonic valvular stenosis. Trace pulmonic re gurgitation. Great Vessels The aortic root is normal in size. The ascending aorta is mildly dilated.3.68 cm Aortic arch is edinson l in caliber. IVC is normal in size and collapses >50% with inspiration. Pericardium There is no pericardial effusion. 2D Dimensions IVSD d PLAX 0.98 cm M: 0.6-1.2 LV Vol A2C d MOD 210.6 mL LVPW d PLAX 0.98 cm M: 0.6 - 1.2 LV Vol A4C d MOD 194.8 mL LVID d PLAX 6.99 cm M: 4.2 - 5.8 LA vol/ BSA A2C s A-L 28.6 mL/m2 LVDs 5.90 cm M: 2.5 - 4.0 LA vol/ BSA A4C s A-L 36.2 mL/m2 Ao Root d 3.28 cm M: 3.1 - 3.7 LA Vol/ BSA Biplane s A-L 34.2 mL/m2 RA Area A4C 14.28 cm2 LA Area A4C s MOD 26.26 cm2 RA Vol/ BSA A4C s A-L 16.0 mL/m2 LA Area A2C s MOD 21.96 cm2 Ao Asc Diam d 3.68 cm M: 2.6 - 3.4 LV EF A4C MOD 30.4 % LV EF Teichholz 31.5 % LV EF A2C MOD 30.4 % LVEF (Acevedo's) 30.12 % M: 52 - 72 LV EF Biplane MOD 30.1 % LV Volume 150.71 mL M: 62 - 150 SV 63.92 mL LV Volume Index 63.32 mL/m2 M: 34 - 74 SV Index 26.86 mL/m2 LV Vol Biplane MOD 212.2 mL FS 15.30 % M-Mode TAPSE 2.52 cm (M/F) >1.7 LV Diastology MV E' medial 0.068 (>0.07 m/s) E/A Ratio 1.9 LV E/e MED 15.60 (<14) MV E Vmax 1.07 (0.4-1.3 m/s) MV E' lateral 0.103 (>0.1 m/s) MV A Vmax 0.55 (0.4-1.3 m/s) LV E/e LAT 10.40 (<14) MV E/A Ratio 1.80 MV E/E' medial 15.64 MV E/E' lateral 10.43 Aortic Valve LVOT Area 3.74 cm2 AoV Area Vmax 1.69 cm2 LVOT Vmax 1.17 m/s AoV Area/ BSA (Vmax) 0.71 cm2/m2 LVOT Mean Volodymyr. 0.94 m/s LILIA Mean Volodymyr. 1.83 cm2 LVOT Peak Grad 5.5 mmHg LILIA Mean Volodymyr. Index 0.77 cm2/m2 LVOT Mean Grad 3.8 mmHg LVOT VTI 0.312 m LVOT Diam s 2.15 cm AoV Vmax 2.58 m/s Velocity Ratio 0.45 AoV Mean Volodymyr. 1.93 m/s AoV Peak Grad 26.7 mmHg LVOT SV 116.65 mL AoV Mean Grad 16.1 mmHg AoV VTI 0.652 m AoV Area VTI 1.79 cm2 AoV Area/ BSA (VTI) 0.75 cm/m2 Mitral Valve MV DT 162 (160-240 msec) MV PHT 47 msec MV Area PHT 4.69 cm2 MV VTI 0.326 m MV Area VTI 3.58 (4.0-6.0 cm2) Pulmonary Valve PV Vmax 0.99 (0.5-1.5 m/s) RVOT Peak Gr. 2.39 mmHg PV Peak Grad 4.0 mmHg RVOT Mean Gr. 1.25 mmHg PV Mean Grad 2.1 mmHg RVOT VTI 0.156 m PV VTI 0.223 m RVOT Vmax 0.77 m/s Tricuspid Valve TR Peak Grad 20.8 mmHg TR Vmax 2.29 m/s RA Pressure 3.00 mmHg RVSP (TR) 23.9 mmHg
== END 2021-08-01 02:59 ==
PROVIDERS: PCP Family Medicine; Visit Provider Internal Medicine Cardiovascular Disease
DX: I42.0 Dilated cardiomyopathy (principal)
CPT/HCPCS: 36591; 93306; 85025

== ENCOUNTER 2021-08-07 01:21 | Outpatient (RCR) | payer MEDICARE, SELFPAY ==
[2021-07-11] VITALS (8 sets, daily range): BP systolic 116–148; BP diastolic 65–77; PULSE 56–67; RESP 16–18; TEMP 36.4–37; O2SAT 98–100
[2021-07-11] MEDS: IMMUNE GLOBULIN 5 GM/50 ML BTL IVPB (07:17)
[2021-07-11] MEDS: Normal Saline Flush 10 ML SYR IVP (07:18)
[2021-07-11] MEDS: Heparin 500 UNITS/5 ML SYRINGE IV (07:18)
[2021-07-11] MEDS: IMMUNE GLOBULIN 10 GM/100 ML BTL IVPB (07:51)
[2021-07-11] MEDS: IMMUNE GLOBULIN 40 GM/400 ML BTL IVPB ×3 (08:22→10:05)
[2021-07-25 07:08] LABS: Abs Immature Grans 0.02 10^3/uL (0.0-0.06); Absolute Basophil Count 0.06 10^3/uL (0.0-0.2); Absolute Eosinophil Count 0.73 10^3/uL (0.0-0.7); Absolute Lymphocyte Count 0.63 10^3/uL (1.2-3.4); Absolute Monocyte Count 0.52 10^3/uL (0.1-0.8); Absolute Neutrophil Count 4.52 10^3/uL (1.2-6.7); Basophils % 0.9; Eosinophils % 11.3; HCT 26.8 % (40.0-50.0); HGB 8.4 g/dL (13.5-17.5); Immature Grans % 0.3; Lymphocytes % 9.7; MCH 33.9 pg (27.0-33.0); MCHC 31.3 % (32.0-36.0); MCV 108.1 fL (80-95); MPV 10.9 fL (8.0-11.0); Neutrophils % 69.8; Nucleated RBC 0 %; Platelet Count 102 10^3/uL (130-400); RBC 2.48 10^6/uL (4.36-5.78); RDW-SD 63.9 fL; WBC 6.48 10^3/uL (4.4-10.8)
[2021-07-25 07:19] LABS: CREATININE 2.1 mg/dL (0.70-1.30); Estimated GFR 32.06 (mL/min/1.73m2)
[2021-07-25 07:45] VITALS: BP 106/62; PULSE 69; RESP 20; O2SAT 100
[2021-07-25 07:52] LABS: Iron 71 ug/dL (65-175); Total Iron Binding Capacity 310 ug/dL (250-450); Transferrin Sat 23 % (20-55)
[2021-07-25] MEDS: Heparin 500 UNITS/5 ML SYRINGE IV (07:55)
[2021-07-25] MEDS: Normal Saline Flush 10 ML SYR IVP (07:55)
[2021-07-25] MEDS: IRON SUCROSE COMPLEX 300 MG in Normal Saline 250 ML 176.667 MG IVPB (08:18)
[2021-08-01] MEDS: Heparin 500 UNITS/5 ML SYRINGE IV (09:06)
[2021-08-01] MEDS: Normal Saline Flush 10 ML SYR IVP (09:06)
[2021-08-01 09:29] LABS: Abs Immature Grans 0.02 10^3/uL (0.0-0.06); Absolute Basophil Count 0.07 10^3/uL (0.0-0.2); Absolute Eosinophil Count 0.62 10^3/uL (0.0-0.7); Absolute Lymphocyte Count 0.55 10^3/uL (1.2-3.4); Basophils % 1.2; Eosinophils % 10.2; HCT 28.3 % (40.0-50.0); Immature Grans % 0.3; Lymphocytes % 9.1; MCH 34.7 pg (27.0-33.0); MCHC 31.8 % (32.0-36.0); MCV 109.3 fL (80-95); MPV 10.4 fL (8.0-11.0); Monocytes % 8.3; Neutrophils % 70.9; Nucleated RBC 0 %; RBC 2.59 10^6/uL (4.36-5.78); RDW 16.1 % (11.8-14.1); RDW-SD 64.9 fL; WBC 6.06 10^3/uL (4.4-10.8)
[2021-08-01 10:18] LABS: Diff Comment RBC Morph Reviewed; Macrocytosis 2+; Platelet Count 94 10^3/uL (130-400)
[2021-08-07 07:25] VITALS: BP 105/55; PULSE 60; RESP 20; TEMP 36.9; O2SAT 99
[2021-08-07 07:36] LABS: Absolute Basophil Count 0.05 10^3/uL (0.0-0.2); Absolute Eosinophil Count 0.47 10^3/uL (0.0-0.7); Absolute Lymphocyte Count 0.45 10^3/uL (1.2-3.4); Absolute Monocyte Count 0.42 10^3/uL (0.1-0.8); Absolute Neutrophil Count 2.96 10^3/uL (1.2-6.7); Basophils % 1.1; Eosinophils % 10.8; HGB 9.4 g/dL (13.5-17.5); Lymphocytes % 10.3; MCH 33.8 pg (27.0-33.0); MCHC 31.3 % (32.0-36.0); MCV 107.9 fL (80-95); MPV 11.3 fL (8.0-11.0); Monocytes % 9.7; Neutrophils % 68.1; Nucleated RBC 0 %; RBC 2.78 10^6/uL (4.36-5.78); RDW 15.2 % (11.8-14.1); RDW-SD 60.9 fL; WBC 4.35 10^3/uL (4.4-10.8)
[2021-08-07] MEDS: IMMUNE GLOBULIN 5 GM/50 ML BTL IVPB (07:37)
[2021-08-07] MEDS: Normal Saline Flush 10 ML SYR IVP (07:37)
[2021-08-07] MEDS: Heparin 500 UNITS/5 ML SYRINGE IV (07:37)
[2021-08-07 07:50] VITALS: BP 132/56; PULSE 65; RESP 20; TEMP 37; O2SAT 100
[2021-08-07] MEDS: IMMUNE GLOBULIN 10 GM/100 ML BTL IVPB (07:56)
[2021-08-07 08:04] LABS: Diff Comment Diff Reviewed; Macrocytosis 2+; Platelet Count 72 10^3/uL (130-400)
[2021-08-07 08:05] LABS: Poikilocytes 1+
[2021-08-07 08:08] LABS: C-Reactive Protein 0.85 mg/dL (0.0-0.3); CREATININE 1.9 mg/dL (0.70-1.30); Creatine Kinase 481 U/L (39-308); Estimated GFR 35.98 (mL/min/1.73m2)
[2021-08-07 08:20] VITALS: BP 136/67; PULSE 57; RESP 20; TEMP 36.9; O2SAT 100
[2021-08-07] MEDS: IMMUNE GLOBULIN 40 GM/400 ML BTL IVPB ×3 (08:24→10:15)
[2021-08-07 08:50] VITALS: BP 130/67; PULSE 64; RESP 18; TEMP 36.9; O2SAT 100
[2021-08-07 09:20] VITALS: BP 123/74; PULSE 57; RESP 18; TEMP 36.9; O2SAT 99
[2021-08-07 09:50] VITALS: BP 138/78; PULSE 61; RESP 20; TEMP 36.9; O2SAT 100
== END 2021-08-07 23:59 | disposition home or self-care (01) ==
LOC: INF 01:21
PROVIDERS: Nurse Practitioner Adult Health; PCP Family Medicine; Visit Provider Family Medicine
DX: D50.9 Iron deficiency anemia, unspecified (principal); N18.31 Chronic kidney disease, stage 3a; D63.1 Anemia in chronic kidney disease; D75.89 Other specified diseases of blood and blood-forming organs; Z79.52 Long term (current) use of systemic steroids; G72.0 Drug-induced myopathy; T46.6X5A Adverse effect of antihyperlipidemic and antiarteriosclerotic drugs, initial encounter; M60.9 Myositis, unspecified
CPT/HCPCS: 36591; 82550; 96365; 96366; 96372; 99214; 82565; 83540; 83550; 85025; 86140; J0881; J1459; J1756

== ENCOUNTER 2021-09-05 02:19 | Outpatient (RCR) | payer MEDICARE, SELFPAY ==
[2021-08-08] VITALS (7 sets, daily range): BP systolic 116–147; BP diastolic 58–78; PULSE 59–65; RESP 18–20; TEMP 36.7–37; O2SAT 99–100
[2021-08-08] MEDS: Heparin 500 UNITS/5 ML SYRINGE IV (07:21)
[2021-08-08] MEDS: IMMUNE GLOBULIN 5 GM/50 ML BTL IVPB (07:21)
[2021-08-08] MEDS: Normal Saline Flush 10 ML SYR IVP (07:21)
[2021-08-08] MEDS: IMMUNE GLOBULIN 10 GM/100 ML BTL IVPB (07:46)
[2021-08-08] MEDS: IMMUNE GLOBULIN 40 GM/400 ML BTL IVPB ×3 (08:20→10:09)
[2021-08-21] MEDS: Normal Saline Flush 10 ML SYR IVP (07:05)
[2021-08-21] MEDS: Heparin 500 UNITS/5 ML SYRINGE IV (07:05)
[2021-08-21 07:18] LABS: Absolute Basophil Count 0.05 10^3/uL (0.0-0.2); Absolute Eosinophil Count 0.52 10^3/uL (0.0-0.7); Absolute Lymphocyte Count 0.57 10^3/uL (1.2-3.4); Absolute Monocyte Count 0.46 10^3/uL (0.1-0.8); Basophils % 1.1; Eosinophils % 11.1; HCT 34.3 % (40.0-50.0); HGB 10.4 g/dL (13.5-17.5); Lymphocytes % 12.1; MCH 32.7 pg (27.0-33.0); MCHC 30.3 % (32.0-36.0); MCV 107.9 fL (80-95); MPV 11.3 fL (8.0-11.0); Monocytes % 9.8; Neutrophils % 65.9; Nucleated RBC 0 %; RBC 3.18 10^6/uL (4.36-5.78); RDW 14.2 % (11.8-14.1); RDW-SD 56.4 fL
[2021-08-21 07:24] LABS: CREATININE 2.3 mg/dL (0.70-1.30); Estimated GFR 28.86 (mL/min/1.73m2)
[2021-08-21 07:26] LABS: Diff Comment RBC Morph Reviewed; Macrocytosis 2+; Platelet Count 81 10^3/uL (130-400)
[2021-08-21 08:02] LABS: Iron 48 ug/dL (65-175); Total Iron Binding Capacity 283 ug/dL (250-450); Transferrin Sat 17 % (20-55)
[2021-08-21] MEDS: IRON SUCROSE COMPLEX 300 MG in Normal Saline 250 ML 176.667 MG IVPB (08:22)
[2021-09-04] MEDS: Normal Saline Flush 10 ML SYR IVP ×2 (07:05→07:58)
[2021-09-04 07:12] LABS: Abs Immature Grans 0.01 10^3/uL (0.0-0.06); Absolute Basophil Count 0.06 10^3/uL (0.0-0.2); Absolute Eosinophil Count 0.58 10^3/uL (0.0-0.7); Absolute Lymphocyte Count 0.54 10^3/uL (1.2-3.4); Absolute Neutrophil Count 3.09 10^3/uL (1.2-6.7); Basophils % 1.3; Eosinophils % 12.1; HCT 35.8 % (40.0-50.0); HGB 11.1 g/dL (13.5-17.5); Immature Grans % 0.2; Lymphocytes % 11.3; MCH 32.6 pg (27.0-33.0); MCV 105.3 fL (80-95); Monocytes % 10.5; Neutrophils % 64.6; Nucleated RBC 0 %; RDW 14.5 % (11.8-14.1); RDW-SD 56.5 fL; WBC 4.78 10^3/uL (4.4-10.8)
[2021-09-04 07:24] LABS: C-Reactive Protein 0.76 mg/dL (0.0-0.3); CREATININE 1.9 mg/dL (0.70-1.30); Creatine Kinase 484 U/L (39-308); Estimated GFR 35.98 (mL/min/1.73m2)
[2021-09-04 07:39] LABS: Platelet Count 73 10^3/uL (130-400)
[2021-09-04 07:40] LABS: Diff Comment RBC Morph Reviewed; Macrocytosis 2+
[2021-09-04] MEDS: IMMUNE GLOBULIN 10 GM/100 ML BTL IVPB (07:58)
[2021-09-04 08:05] VITALS: BP 115/71; PULSE 56; RESP 20; TEMP 36.9; O2SAT 100
[2021-09-04 08:20] VITALS: BP 120/69; PULSE 56; RESP 16; TEMP 36.8; O2SAT 99
[2021-09-04] MEDS: IMMUNE GLOBULIN 40 GM/400 ML BTL IVPB ×3 (08:39→10:42)
[2021-09-04 08:52] VITALS: BP 129/73; PULSE 58; RESP 16; TEMP 36.6; O2SAT 100
[2021-09-04 09:26] VITALS: BP 124/74; PULSE 63; RESP 16; TEMP 36.6; O2SAT 99
[2021-09-04 09:56] VITALS: BP 149/82; PULSE 58; RESP 17; TEMP 36.7; O2SAT 100
[2021-09-05] MEDS: Normal Saline Flush 10 ML SYR IVP (07:01)
[2021-09-05] MEDS: Heparin 500 UNITS/5 ML SYRINGE IV (07:03)
[2021-09-05 07:20] VITALS: BP 124/67; PULSE 61; RESP 17; TEMP 36.9; O2SAT 99
[2021-09-05] MEDS: IMMUNE GLOBULIN 40 GM/400 ML BTL IVPB ×3 (07:28→10:12)
[2021-09-05 07:50] VITALS: BP 122/67; PULSE 58; RESP 19; TEMP 36.6; O2SAT 100
[2021-09-05 08:05] VITALS: BP 133/74; PULSE 58; RESP 18; TEMP 36.5; O2SAT 100
[2021-09-05] MEDS: IMMUNE GLOBULIN 10 GM/100 ML BTL IVPB (08:13)
[2021-09-05 08:35] VITALS: BP 147/80; PULSE 58; RESP 18; TEMP 36.5; O2SAT 100
[2021-09-05 09:05] VITALS: BP 137/77; PULSE 56; RESP 20; TEMP 36.3; O2SAT 100
== END 2021-09-07 23:59 | disposition home or self-care (01) ==
LOC: INF 02:19
PROVIDERS: Nurse Practitioner Adult Health; PCP Family Medicine; Visit Provider Family Medicine
DX: D50.0 Iron deficiency anemia secondary to blood loss (chronic) (principal); N18.9 Chronic kidney disease, unspecified; D63.1 Anemia in chronic kidney disease; Z45.2 Encounter for adjustment and management of vascular access device; M60.9 Myositis, unspecified; G72.0 Drug-induced myopathy; T46.6X5A Adverse effect of antihyperlipidemic and antiarteriosclerotic drugs, initial encounter
CPT/HCPCS: 36591; 82550; 96365; 96366; 96372; 82565; 83540; 83550; 85025; 86140; J0881; J1459; J1756

== ENCOUNTER 2021-10-03 04:39 | Outpatient (RCR) | payer MEDICARE, SELFPAY ==
[2021-09-08 00:12] VITALS: BP 137/77; PULSE 56; RESP 20; TEMP 36.3
[2021-09-18 07:23] LABS: Abs Immature Grans 0.02 10^3/uL (0.0-0.06); Absolute Basophil Count 0.04 10^3/uL (0.0-0.2); Absolute Eosinophil Count 0.54 10^3/uL (0.0-0.7); Absolute Lymphocyte Count 0.45 10^3/uL (1.2-3.4); Absolute Monocyte Count 0.41 10^3/uL (0.1-0.8); Eosinophils % 13.6; HGB 11.6 g/dL (13.5-17.5); Immature Grans % 0.5; Lymphocytes % 11.4; MCH 32.5 pg (27.0-33.0); MCHC 31.4 % (32.0-36.0); MCV 103.6 fL (80-95); MPV 12.2 fL (8.0-11.0); Monocytes % 10.4; Neutrophils % 63.1; Nucleated RBC 0 %; RBC 3.57 10^6/uL (4.36-5.78); RDW 14.6 % (11.8-14.1); RDW-SD 55.7 fL; WBC 3.96 10^3/uL (4.4-10.8)
[2021-09-18 07:29] LABS: CREATININE 1.9 mg/dL (0.70-1.30); Estimated GFR 35.98 (mL/min/1.73m2)
[2021-09-18 07:41] LABS: Platelet Count 62 10^3/uL (130-400)
[2021-09-18 07:59] LABS: Iron 59 ug/dL (65-175); Total Iron Binding Capacity 292 ug/dL (250-450); Transferrin Sat 20 % (20-55)
[2021-09-18] MEDS: Normal Saline Flush 10 ML SYR IVP (08:13)
[2021-09-18] MEDS: Heparin 500 UNITS/5 ML SYRINGE IV (08:14)
[2021-09-18] MEDS: IRON SUCROSE COMPLEX 300 MG in Normal Saline 250 ML 176.667 MG IVPB (08:24)
[2021-10-02] MEDS: Normal Saline Flush 10 ML SYR IVP (07:08)
[2021-10-02 07:16] LABS: Abs Immature Grans 0.01 10^3/uL (0.0-0.06); Absolute Basophil Count 0.05 10^3/uL (0.0-0.2); Absolute Lymphocyte Count 0.44 10^3/uL (1.2-3.4); Absolute Monocyte Count 0.47 10^3/uL (0.1-0.8); Absolute Neutrophil Count 3.56 10^3/uL (1.2-6.7); Eosinophils % 11.7; HCT 38.6 % (40.0-50.0); HGB 12.1 g/dL (13.5-17.5); Immature Grans % 0.2; Lymphocytes % 8.6; MCH 32.3 pg (27.0-33.0); MCHC 31.3 % (32.0-36.0); MCV 102.9 fL (80-95); Monocytes % 9.2; Neutrophils % 69.3; RBC 3.75 10^6/uL (4.36-5.78); RDW 14.8 % (11.8-14.1); RDW-SD 56.9 fL; WBC 5.13 10^3/uL (4.4-10.8)
[2021-10-02 07:30] LABS: Platelet Count 62 10^3/uL (130-400); RBC Morphology Normal
[2021-10-02] MEDS: IMMUNE GLOBULIN 10 GM/100 ML BTL IVPB (07:36)
[2021-10-02 07:40] VITALS: BP 128/73; PULSE 60; RESP 18; TEMP 36.8; O2SAT 100
[2021-10-02 08:00] VITALS: BP 124/77; PULSE 59; RESP 17; TEMP 36.6; O2SAT 100
[2021-10-02 08:15] VITALS: BP 122/75; PULSE 58; RESP 18; TEMP 36.5; O2SAT 100
[2021-10-02] MEDS: IMMUNE GLOBULIN 40 GM/400 ML BTL IVPB ×3 (08:23→10:43)
[2021-10-02 09:10] VITALS: BP 138/78; PULSE 52; RESP 17; TEMP 36.6; O2SAT 100
[2021-10-02 09:16] LABS: ALT 81 U/L (16-63); AST 72 U/L (15-37); Albumin 2.8 g/dL (3.4-5.0); Alkaline Phosphatase 180 U/L (46-116); BUN 68 mg/dL (7-18); Bilirubin, Total 0.5 mg/dL (0.2-1.0); Calcium 8.3 mg/dL (8.5-10.1); Chloride 102 mmol/L (98-107); Estimated GFR 33.91 (mL/min/1.73m2); Glucose 357 mg/dL (74-106); Potassium 4.9 mmol/L (3.5-5.1); Sodium 133 mmol/L (136-145); Total Protein 7.4 g/dL (6.4-8.2)
[2021-10-02 09:33] LABS: C-Reactive Protein 1.15 mg/dL (0.0-0.3); Creatine Kinase 662 U/L (39-308); Magnesium 2.2 mg/dL (1.8-2.4)
[2021-10-02 09:40] VITALS: BP 153/81; PULSE 59; RESP 18; TEMP 36.6; O2SAT 100
[2021-10-02 10:10] VITALS: BP 155/82; PULSE 60; RESP 18; TEMP 36.6; O2SAT 100
[2021-10-03] MEDS: IMMUNE GLOBULIN 10 GM/100 ML BTL IVPB (07:30)
[2021-10-03] MEDS: Normal Saline Flush 10 ML SYR IVP (07:30)
[2021-10-03 07:35] VITALS: BP 128/71; PULSE 56; RESP 16; TEMP 36.9; O2SAT 100
[2021-10-03 07:50] VITALS: BP 129/73; PULSE 56; RESP 16; TEMP 36.9; O2SAT 100
[2021-10-03 08:05] VITALS: BP 120/71; PULSE 55; RESP 16; TEMP 36.9; O2SAT 99
[2021-10-03] MEDS: IMMUNE GLOBULIN 40 GM/400 ML BTL IVPB ×3 (08:11→10:07)
[2021-10-03 08:35] VITALS: BP 131/73; PULSE 57; RESP 16; TEMP 36.8; O2SAT 99
[2021-10-03 09:08] VITALS: BP 129/75; PULSE 56; RESP 16; TEMP 36.9; O2SAT 100
== END 2021-10-07 23:59 | disposition home or self-care (01) ==
LOC: INF 04:39
PROVIDERS: Nurse Practitioner Adult Health; PCP Family Medicine; Visit Provider Family Medicine
DX: D50.9 Iron deficiency anemia, unspecified (principal); D63.1 Anemia in chronic kidney disease; G72.9 Myopathy, unspecified; Z79.52 Long term (current) use of systemic steroids; I42.9 Cardiomyopathy, unspecified; D53.9 Nutritional anemia, unspecified; E11.65 Type 2 diabetes mellitus with hyperglycemia; N28.9 Disorder of kidney and ureter, unspecified
CPT/HCPCS: 36591; 80053; 82550; 96365; 96366; 96372; 82565; 83540; 83550; 83735; 85025; 86140; J0881; J1459; J1756

== ENCOUNTER 2021-10-31 02:22 | Outpatient (RCR) | payer MEDICARE, SELFPAY ==
[2021-10-08 00:14] VITALS: BP 129/75; PULSE 56; RESP 16; TEMP 36.9
[2021-10-16] MEDS: Normal Saline Flush 10 ML SYR IVP (07:11)
[2021-10-16] MEDS: Heparin 500 UNITS/5 ML SYRINGE IV (07:11)
[2021-10-16 07:12] LABS: Abs Immature Grans 0.01 10^3/uL (0.0-0.06); Absolute Basophil Count 0.03 10^3/uL (0.0-0.2); Absolute Eosinophil Count 0.25 10^3/uL (0.0-0.7); Absolute Lymphocyte Count 0.41 10^3/uL (1.2-3.4); Absolute Monocyte Count 0.32 10^3/uL (0.1-0.8); Absolute Neutrophil Count 3.79 10^3/uL (1.2-6.7); Basophils % 0.6; Eosinophils % 5.2; HCT 37.6 % (40.0-50.0); HGB 12.1 g/dL (13.5-17.5); Immature Grans % 0.2; Lymphocytes % 8.5; MCH 32.4 pg (27.0-33.0); MCHC 32.2 % (32.0-36.0); MCV 101 fL (80-95); MPV 11.7 fL (8.0-11.0); Monocytes % 6.7; Neutrophils % 78.8; RBC 3.73 10^6/uL (4.36-5.78); RDW 15.3 % (11.8-14.1); RDW-SD 56.9 fL; WBC 4.81 10^3/uL (4.4-10.8)
[2021-10-16 07:17] LABS: CREATININE 2.1 mg/dL (0.70-1.30); Estimated GFR 32.06 (mL/min/1.73m2)
[2021-10-16 07:30] LABS: Platelet Count 61 10^3/uL (130-400)
[2021-10-16 07:54] LABS: Iron 83 ug/dL (65-175); Total Iron Binding Capacity 277 ug/dL (250-450); Transferrin Sat 30 % (20-55)
[2021-10-30] MEDS: Normal Saline Flush 10 ML SYR IVP ×2 (07:10→11:24)
[2021-10-30 07:17] LABS: Abs Immature Grans 0.01 10^3/uL (0.0-0.06); Absolute Basophil Count 0.05 10^3/uL (0.0-0.2); Absolute Eosinophil Count 0.49 10^3/uL (0.0-0.7); Absolute Lymphocyte Count 0.47 10^3/uL (1.2-3.4); Absolute Monocyte Count 0.46 10^3/uL (0.1-0.8); Absolute Neutrophil Count 2.96 10^3/uL (1.2-6.7); Basophils % 1.1; HCT 35.8 % (40.0-50.0); HGB 11.5 g/dL (13.5-17.5); Immature Grans % 0.2; Lymphocytes % 10.6; MCH 32.4 pg (27.0-33.0); MCHC 32.1 % (32.0-36.0); MCV 101 fL (80-95); MPV 11.6 fL (8.0-11.0); Monocytes % 10.4; Neutrophils % 66.7; RBC 3.55 10^6/uL (4.36-5.78); RDW 15.4 % (11.8-14.1); RDW-SD 57.3 fL; WBC 4.44 10^3/uL (4.4-10.8)
[2021-10-30 07:37] VITALS: BP 112/72; PULSE 58; RESP 17; TEMP 36.9; O2SAT 98
[2021-10-30 07:37] LABS: C-Reactive Protein 1.46 mg/dL (0.0-0.3); CREATININE 2.1 mg/dL (0.70-1.30); Estimated GFR 32.06 (mL/min/1.73m2)
[2021-10-30 07:39] LABS: Creatine Kinase 1425 U/L (39-308)
[2021-10-30] MEDS: IMMUNE GLOBULIN 10 GM/100 ML BTL IVPB (07:39)
[2021-10-30 07:43] LABS: Platelet Count 65 10^3/uL (130-400)
[2021-10-30 08:00] VITALS: BP 111/65; PULSE 60; RESP 16; TEMP 36.9; O2SAT 98
[2021-10-30 08:15] VITALS: BP 115/73; PULSE 58; RESP 17; TEMP 36.9; O2SAT 100
[2021-10-30] MEDS: IMMUNE GLOBULIN 40 GM/400 ML BTL IVPB ×3 (08:29→10:24)
[2021-10-30 08:45] VITALS: BP 121/73; PULSE 58; RESP 16; TEMP 36.8; O2SAT 100
[2021-10-30 09:15] VITALS: BP 120/73; PULSE 53; RESP 18; TEMP 37; O2SAT 99
[2021-10-30 09:45] VITALS: BP 134/66; PULSE 54; RESP 17; TEMP 36.7; O2SAT 100
[2021-10-31] MEDS: Normal Saline Flush 10 ML SYR IVP (07:05)
[2021-10-31 07:16] VITALS: BP 120/73; PULSE 59; RESP 16; TEMP 37.2; O2SAT 99
[2021-10-31] MEDS: IMMUNE GLOBULIN 10 GM/100 ML BTL IVPB (07:34)
[2021-10-31 07:55] VITALS: BP 109/67; PULSE 57; RESP 16; TEMP 37; O2SAT 100
[2021-10-31] MEDS: IMMUNE GLOBULIN 40 GM/400 ML BTL IVPB ×3 (08:18→10:11)
[2021-10-31 08:25] VITALS: BP 117/69; PULSE 64; RESP 17; TEMP 36.8; O2SAT 100
[2021-10-31 08:55] VITALS: BP 132/79; PULSE 64; RESP 16; TEMP 36.9; O2SAT 95
[2021-10-31 09:27] VITALS: BP 131/73; PULSE 58; RESP 16; TEMP 36.9; O2SAT 98
[2021-10-31] MEDS: Heparin 500 UNITS/5 ML SYRINGE IV (11:01)
== END 2021-11-07 23:59 | disposition home or self-care (01) ==
LOC: INF 02:22
PROVIDERS: PCP Family Medicine; Visit Provider Family Medicine
DX: D50.9 Iron deficiency anemia, unspecified (principal); D63.1 Anemia in chronic kidney disease; G72.9 Myopathy, unspecified; Z79.52 Long term (current) use of systemic steroids; M60.9 Myositis, unspecified
CPT/HCPCS: 36591; 82550; 96365; 96366; 96372; 82565; 83540; 83550; 85025; 86140; J0881; J1459

== ENCOUNTER 2021-11-28 00:35 | Outpatient (RCR) | payer MEDICARE, SELFPAY ==
[2021-11-08 00:15] VITALS: BP 131/73; PULSE 58; RESP 16; TEMP 36.9
[2021-11-13 07:30] LABS: Abs Immature Grans 0.01 10^3/uL (0.0-0.06); Absolute Basophil Count 0.05 10^3/uL (0.0-0.2); Absolute Eosinophil Count 0.53 10^3/uL (0.0-0.7); Absolute Lymphocyte Count 0.44 10^3/uL (1.2-3.4); Absolute Monocyte Count 0.47 10^3/uL (0.1-0.8); Absolute Neutrophil Count 2.89 10^3/uL (1.2-6.7); Basophils % 1.1; Eosinophils % 12.1; HCT 35.3 % (40.0-50.0); HGB 11.3 g/dL (13.5-17.5); Immature Grans % 0.2; MCH 32.1 pg (27.0-33.0); MCV 100 fL (80-95); MPV 11.8 fL (8.0-11.0); Monocytes % 10.7; Neutrophils % 65.9; RBC 3.52 10^6/uL (4.36-5.78); RDW 16.1 % (11.8-14.1); RDW-SD 58.9 fL; WBC 4.38 10^3/uL (4.4-10.8)
[2021-11-13 07:38] LABS: CREATININE 2.1 mg/dL (0.70-1.30); Estimated GFR 32.06 (mL/min/1.73m2)
[2021-11-13 07:46] LABS: Platelet Count 65 10^3/uL (130-400)
[2021-11-13 07:47] LABS: Iron 76 ug/dL (65-175); Total Iron Binding Capacity 268 ug/dL (250-450); Transferrin Sat 28 % (20-55)
[2021-11-13] MEDS: IRON SUCROSE COMPLEX 300 MG in Normal Saline 250 ML 176.667 MG IVPB (08:14)
[2021-11-13] MEDS: Heparin 500 UNITS/5 ML SYRINGE IV (08:14)
[2021-11-13] MEDS: Normal Saline Flush 10 ML SYR IVP (08:14)
[2021-11-27 07:10] VITALS: BP 126/73; PULSE 63; RESP 20; TEMP 37; O2SAT 99
[2021-11-27 07:27] LABS: Abs Immature Grans 0.01 10^3/uL (0.0-0.06); Absolute Basophil Count 0.09 10^3/uL (0.0-0.2); Absolute Eosinophil Count 0.75 10^3/uL (0.0-0.7); Absolute Monocyte Count 0.58 10^3/uL (0.1-0.8); Basophils % 1.6; Eosinophils % 13.1; HCT 38.1 % (40.0-50.0); HGB 12.4 g/dL (13.5-17.5); Immature Grans % 0.2; Lymphocytes % 8.7; MCH 32.7 pg (27.0-33.0); MCHC 32.5 % (32.0-36.0); MCV 101 fL (80-95); MPV 11.8 fL (8.0-11.0); Monocytes % 10.1; Neutrophils % 66.3; RBC 3.79 10^6/uL (4.36-5.78); RDW 15.6 % (11.8-14.1); RDW-SD 57.5 fL; WBC 5.73 10^3/uL (4.4-10.8)
[2021-11-27 07:39] LABS: C-Reactive Protein 1.49 mg/dL (0.0-0.3); CREATININE 2.1 mg/dL (0.70-1.30); Estimated GFR 32.06 (mL/min/1.73m2)
[2021-11-27] MEDS: IMMUNE GLOBULIN 10 GM/100 ML BTL IVPB (07:40)
[2021-11-27 07:42] LABS: Platelet Count 79 10^3/uL (130-400)
[2021-11-27] MEDS: Normal Saline Flush 10 ML SYR IVP (07:42)
[2021-11-27 07:58] VITALS: BP 128/75; PULSE 60; RESP 19; TEMP 36.6; O2SAT 99
[2021-11-27 08:13] VITALS: BP 106/66; PULSE 56; RESP 19; TEMP 36.6; O2SAT 100
[2021-11-27 08:21] LABS: Creatine Kinase 1925 U/L (39-308)
[2021-11-27] MEDS: IMMUNE GLOBULIN 40 GM/400 ML BTL IVPB ×3 (08:22→10:16)
[2021-11-27 08:43] VITALS: BP 114/66; PULSE 60; RESP 18; TEMP 36.8; O2SAT 99
[2021-11-27 09:13] VITALS: BP 127/71; PULSE 56; RESP 19; TEMP 36.7; O2SAT 99
[2021-11-27 09:43] VITALS: BP 144/75; PULSE 55; RESP 20; TEMP 36.7; O2SAT 100
[2021-11-28 07:15] VITALS: BP 117/63; PULSE 58; RESP 18; TEMP 36.7; O2SAT 99
[2021-11-28] MEDS: IMMUNE GLOBULIN 10 GM/100 ML BTL IVPB (07:15)
[2021-11-28] MEDS: Normal Saline Flush 10 ML SYR IVP (07:22)
[2021-11-28] MEDS: Heparin 500 UNITS/5 ML SYRINGE IV (07:22)
[2021-11-28 07:30] VITALS: BP 100/63; PULSE 58; RESP 18; TEMP 37; O2SAT 99
[2021-11-28 07:45] VITALS: BP 110/68; PULSE 59; RESP 18; TEMP 37; O2SAT 99
[2021-11-28] MEDS: IMMUNE GLOBULIN 40 GM/400 ML BTL IVPB ×3 (08:02→10:09)
[2021-11-28 08:15] VITALS: BP 124/75; PULSE 61; RESP 18; TEMP 37; O2SAT 97
[2021-11-28 08:45] VITALS: BP 106/64; PULSE 57; RESP 18; TEMP 36.8; O2SAT 99
[2021-11-28 09:15] VITALS: BP 133/77; PULSE 57; TEMP 36.9; O2SAT 99
== END 2021-12-07 23:59 | disposition home or self-care (01) ==
LOC: INF 00:35
PROVIDERS: PCP Family Medicine; Visit Provider Family Medicine
DX: D50.9 Iron deficiency anemia, unspecified (principal); N18.9 Chronic kidney disease, unspecified; D63.1 Anemia in chronic kidney disease; Z79.52 Long term (current) use of systemic steroids; M60.9 Myositis, unspecified
CPT/HCPCS: 36591; 82550; 96365; 96366; 96372; 82565; 83540; 83550; 85025; 86140; J0881; J1459; J1756

== ENCOUNTER 2021-12-28 00:58 | Outpatient (RCR) | payer MEDICARE, SELFPAY ==
[2021-12-08 00:19] VITALS: BP 133/77; PULSE 57; RESP 18; TEMP 36.9
[2021-12-12 07:47] LABS: Abs Immature Grans 0.01 10^3/uL (0.0-0.06); Absolute Basophil Count 0.06 10^3/uL (0.0-0.2); Absolute Eosinophil Count 0.47 10^3/uL (0.0-0.7); Absolute Lymphocyte Count 0.45 10^3/uL (1.2-3.4); Absolute Monocyte Count 0.51 10^3/uL (0.1-0.8); Absolute Neutrophil Count 2.53 10^3/uL (1.2-6.7); Basophils % 1.5; Eosinophils % 11.7; HCT 33.5 % (40.0-50.0); HGB 10.7 g/dL (13.5-17.5); Immature Grans % 0.2; Lymphocytes % 11.2; MCH 32.6 pg (27.0-33.0); MCHC 31.9 % (32.0-36.0); MCV 102 fL (80-95); MPV 11.1 fL (8.0-11.0); Monocytes % 12.7; Neutrophils % 62.7; RBC 3.28 10^6/uL (4.36-5.78); RDW 15.4 % (11.8-14.1); WBC 4.03 10^3/uL (4.4-10.8)
[2021-12-12 07:48] LABS: CREATININE 2.2 mg/dL (0.70-1.30); Estimated GFR 30.38 (mL/min/1.73m2)
[2021-12-12] MEDS: methylPREDNISolone SUCC 500 MG in Normal Saline 100 ML 200 MG IVPB (07:50)
[2021-12-12 08:16] LABS: Diff Comment PLT Morph Reviewed
[2021-12-12 08:17] LABS: Anisocytosis 1+; Macrocytosis 1+; Platelet Count 66 10^3/uL (130-400)
[2021-12-12 09:00] LABS: Iron 62 ug/dL (65-175); Total Iron Binding Capacity 282 ug/dL (250-450); Transferrin Sat 22 % (20-55)
[2021-12-12] MEDS: IRON SUCROSE COMPLEX 300 MG in Normal Saline 250 ML 176.667 MG IVPB (09:17)
[2021-12-12] MEDS: Heparin 500 UNITS/5 ML SYRINGE IV (11:12)
[2021-12-12] MEDS: Normal Saline Flush 10 ML SYR IVP (11:12)
[2021-12-27] VITALS (7 sets, daily range): BP systolic 110–157; BP diastolic 59–82; PULSE 52–57; RESP 17–18; TEMP 36.2–36.9; O2SAT 98–100
[2021-12-27 07:23] LABS: Abs Immature Grans 0.02 10^3/uL (0.0-0.06); Absolute Basophil Count 0.05 10^3/uL (0.0-0.2); Absolute Eosinophil Count 0.37 10^3/uL (0.0-0.7); Absolute Lymphocyte Count 0.42 10^3/uL (1.2-3.4); Absolute Monocyte Count 0.52 10^3/uL (0.1-0.8); Absolute Neutrophil Count 4.11 10^3/uL (1.2-6.7); Basophils % 0.9; Eosinophils % 6.7; HCT 34.7 % (40.0-50.0); HGB 11.4 g/dL (13.5-17.5); Immature Grans % 0.4; Lymphocytes % 7.7; MCH 33.8 pg (27.0-33.0); MCHC 32.9 % (32.0-36.0); MCV 103 fL (80-95); MPV 10.8 fL (8.0-11.0); Monocytes % 9.5; Neutrophils % 74.8; RBC 3.37 10^6/uL (4.36-5.78); RDW 15.3 % (11.8-14.1); RDW-SD 57.6 fL; WBC 5.49 10^3/uL (4.4-10.8)
[2021-12-27 07:42] LABS: Platelet Count 63 10^3/uL (130-400)
[2021-12-27 07:43] LABS: C-Reactive Protein 2.11 mg/dL (0.0-0.3); CREATININE 2.1 mg/dL (0.70-1.30); Creatine Kinase 1394 U/L (39-308); Estimated GFR 32.06 (mL/min/1.73m2); Magnesium 2.2 mg/dL (1.8-2.4)
[2021-12-27] MEDS: methylPREDNISolone SUCC 500 MG in Normal Saline 100 ML 216 MG IVPB (07:45)
[2021-12-27] MEDS: Normal Saline Flush 10 ML SYR IVP (07:46)
[2021-12-27] MEDS: IMMUNE GLOBULIN 10 GM/100 ML BTL IVPB (08:12)
[2021-12-27] MEDS: IMMUNE GLOBULIN 40 GM/400 ML BTL IVPB ×3 (08:48→11:00)
[2021-12-28] VITALS (9 sets, daily range): BP systolic 131–171; BP diastolic 63–75; PULSE 46–58; RESP 16–18; TEMP 36.3–36.8; O2SAT 95–99
[2021-12-28] MEDS: Normal Saline Flush 10 ML SYR IVP (07:12)
[2021-12-28] MEDS: IMMUNE GLOBULIN 10 GM/100 ML BTL IVPB (07:32)
[2021-12-28] MEDS: IMMUNE GLOBULIN 40 GM/400 ML BTL IVPB ×3 (08:19→10:17)
[2021-12-28] MEDS: Heparin 500 UNITS/5 ML SYRINGE IV (10:17)
[2021-12-28 13:41] LABS: ALT 116 U/L (16-63); AST 103 U/L (15-37); Albumin 3.1 g/dL (3.4-5.0); Alkaline Phosphatase 170 U/L (46-116); Total Protein 7.5 g/dL (6.4-8.2)
== END 2022-01-07 23:59 | disposition home or self-care (01) ==
LOC: INF 00:58
PROVIDERS: PCP Family Medicine; Visit Provider Family Medicine
DX: D50.9 Iron deficiency anemia, unspecified (principal); Z45.2 Encounter for adjustment and management of vascular access device
CPT/HCPCS: 36591; 82550; 96365; 96366; 96372; 82040; 82565; 83540; 83550; 83735; 84075; 84155; 84450; 84460; 85025; 86140; J0881; J1459; J1756; J2930

== ENCOUNTER → 2022-01-18 00:57 | Outpatient (CLI) | payer MEDICARE, SELFPAY ==
--- NOTE | 2022-01-18 14:00 | DI.US_ITS ---
APPROVED REPORT EXAM: Comprehensive 2D, Doppler, and color-flow Echocardiogram Patient Location: Out-Patient Black Top Roller: Kerry Carranza RDCS ([facility]) Indications: CMP, Dilated cardiomyopathy Other Information Study Quality: Adequate Conclusion Left ventricle is dilated. There is global hypokinesis with an estimated ejection fraction of 35 to 40% The right ventricle is not well visualized but does not appear enlarged Both atria are normal in size The aortic valve is trileaflet and sclerotic with mild aortic stenosis. Peak gradient is 29, mean 17 mmHg. Calculated aortic valve area is 1.45 cm?? Mild mitral annular calcification, mild mitral regurgitation Normal tricuspid valve with trace to mild regurgitation. Estimated right ventricular systolic pressu re is 29 mmHg Dilated ascending aorta measuring 3.6 cm Wall motion Left Ventricle Left ventricle is moderately to severely dilated. Left ventricular systolic function is moderately de creased. There is normal left ventricular wall thickness. There is global hypokinesis of the left sparkle tricle. There is no ventricular septal defect visualized. LVEF is 35-40%. Right Ventricle Right ventricle is not well visualized. But does not appear enlarged Right ventricular systolic funct ion could not be assessed. Atria The left atrium size is normal. The right atrium size is normal. The interatrial septum is intact wit h no evidence for an atrial septal defect. Aortic Valve Aortic valve is calcified. Aortic valve is trileaflet. Mild aortic stenosis. Peak aortic valve gradie nt is 29.1mmHg. Highest mean aortic valve gradient is 17.0mmHg. Calculated LILIA by the continuity equa tion is1.5_cm2. No aortic regurgitation is present. Mitral Valve Mild mitral annular calcification. No evidence of mitral valve stenosis. Mild mitral regurgitation. Tricuspid Valve The tricuspid valve is normal in structure. There is no tricuspid valve stenosis. Trace to mild tricu spid regurgitation. Pulmonic Valve The pulmonary valve is normal in structure. There is no pulmonic valvular stenosis. There is no pulmo idalmis valvular regurgitation. Great Vessels The aortic root is normal in size. The ascending aorta is mildly dilated. Aortic arch is normal in ca liber. IVC is normal in size and collapses >50% with inspiration. Pericardium There is no pericardial effusion. 2D Dimensions IVSD d PLAX 1.04 cm M: 0.6-1.2 LV Vol A2C d MOD 152.6 mL LVPW d PLAX 1.01 cm M: 0.6 - 1.2 LV Vol A4C d MOD 164.6 mL LVID d PLAX 6.80 cm M: 4.2 - 5.8 LA vol/ BSA A4C s A-L 18.6 mL/m2 LVDs 5.80 cm M: 2.5 - 4.0 LA Area A4C s MOD 15.98 cm2 Ao Root d 3.21 cm M: 3.1 - 3.7 LV EF A4C MOD 35.8 % RA Area A4C 10.28 cm2 LV EF A2C MOD 35.9 % RA Vol/ BSA A4C s A-L 9.4 mL/m2 LV EF Biplane MOD 33.5 % Ao Asc Diam d 3.60 cm M: 2.6 - 3.4 SV 52.83 mL LV EF Teichholz 29.7 % SV Index 22.51 mL/m2 LVEF (Acevedo's) 33.51 % M: 52 - 72 LV Volume 112.41 mL M: 62 - 150 LV Volume Index 48.03 mL/m2 M: 34 - 74 LV Vol Biplane MOD 157.6 mL FS 14.35 % M-Mode TAPSE 3.13 cm (M/F) >1.7 LV Diastology MV E' medial 0.071 (>0.07 m/s) E/A Ratio 0.9 LV E/e MED 11.55 (<14) MV E Vmax 0.82 (0.4-1.3 m/s) MV E' lateral 0.089 (>0.1 m/s) MV A Vmax 0.90 (0.4-1.3 m/s) LV E/e LAT 9.15 (<14) MV E/A Ratio 0.89 MV E/E' medial 11.56 MV E/E' lateral 9.19 Aortic Valve LVOT Area 3.43 cm2 AoV Area Vmax 1.55 cm2 LVOT Vmax 1.22 m/s AoV Area/ BSA (Vmax) 0.66 cm2/m2 LVOT Mean Volodymyr. 0.81 m/s LILIA Mean Volodymyr. 1.42 cm2 LVOT Peak Grad 5.9 mmHg LILIA Mean Volodymyr. Index 0.60 cm2/m2 LVOT Mean Grad 3.1 mmHg LVOT VTI 0.254 m LVOT Diam s 2.05 cm AoV Vmax 2.70 m/s Velocity Ratio 0.45 AoV Mean Volodymyr. 1.97 m/s AoV Peak Grad 29.1 mmHg LVOT SV 87.26 mL AoV Mean Grad 17.0 mmHg AoV VTI 0.538 m AoV Area VTI 1.62 cm2 AoV Area/ BSA (VTI) 0.69 cm/m2 Mitral Valve MV DT 214 (160-240 msec) MV PHT 62 msec MV Area PHT 3.54 cm2 MV VTI 0.364 m MV Area VTI 2.40 (4.0-6.0 cm2) Pulmonary Valve PV Vmax 1.21 (0.5-1.5 m/s) RVOT Peak Gr. 4.66 mmHg PV Peak Grad 5.8 mmHg RVOT Mean Gr. 2.10 mmHg PV Mean Grad 3.3 mmHg RVOT VTI 0.210 m PV VTI 0.247 m RVOT Vmax 1.08 m/s Tricuspid Valve TR Peak Grad 25.6 mmHg TR Vmax 2.53 m/s RA Pressure 3.00 mmHg RVSP (TR) 28.6 mmHg
== END ==
PROVIDERS: PCP Family Medicine; Visit Provider Internal Medicine Cardiovascular Disease
DX: I42.0 Dilated cardiomyopathy (principal)
CPT/HCPCS: 93306

== ENCOUNTER 2022-02-05 02:51 | Outpatient (RCR) | payer MEDICARE, SELFPAY ==
[2022-01-08 00:09] VITALS: BP 169/74; PULSE 46; RESP 16; TEMP 36.6
[2022-01-08 08:36] LABS: Abs Immature Grans 0.01 10^3/uL (0.0-0.06); Absolute Basophil Count 0.06 10^3/uL (0.0-0.2); Absolute Eosinophil Count 0.34 10^3/uL (0.0-0.7); Absolute Lymphocyte Count 0.49 10^3/uL (1.2-3.4); Absolute Monocyte Count 0.47 10^3/uL (0.1-0.8); Absolute Neutrophil Count 3.13 10^3/uL (1.2-6.7); Basophils % 1.3; Eosinophils % 7.6; HCT 36.4 % (40.0-50.0); HGB 11.5 g/dL (13.5-17.5); Immature Grans % 0.2; Lymphocytes % 10.9; MCHC 31.6 % (32.0-36.0); MCV 104 fL (80-95); MPV 12.3 fL (8.0-11.0); Monocytes % 10.4; Neutrophils % 69.6; RBC 3.49 10^6/uL (4.36-5.78); RDW 15.2 % (11.8-14.1); RDW-SD 57.7 fL
[2022-01-08] MEDS: Normal Saline Flush 10 ML SYR IVP (08:44)
[2022-01-08] MEDS: Heparin 500 UNITS/5 ML SYRINGE IV (08:44)
[2022-01-08 08:45] LABS: Estimated GFR 33.91 (mL/min/1.73m2)
[2022-01-08 09:01] LABS: Platelet Count 60 10^3/uL (130-400)
[2022-01-08 09:49] LABS: Total Iron Binding Capacity 270 ug/dL (250-450)
[2022-01-08 10:24] LABS: Iron 80 ug/dL (65-175)
[2022-01-22] MEDS: Normal Saline Flush 10 ML SYR IVP (07:13)
[2022-01-22 07:22] LABS: Abs Immature Grans 0.01 10^3/uL (0.0-0.06); Absolute Basophil Count 0.07 10^3/uL (0.0-0.2); Absolute Lymphocyte Count 0.58 10^3/uL (1.2-3.4); Absolute Monocyte Count 0.53 10^3/uL (0.1-0.8); Absolute Neutrophil Count 3.15 10^3/uL (1.2-6.7); Basophils % 1.4; Eosinophils % 13.9; HCT 37.2 % (40.0-50.0); HGB 12.1 g/dL (13.5-17.5); Immature Grans % 0.2; Lymphocytes % 11.5; MCH 33.4 pg (27.0-33.0); MCHC 32.5 % (32.0-36.0); MCV 103 fL (80-95); Monocytes % 10.5; Neutrophils % 62.5; RBC 3.62 10^6/uL (4.36-5.78); RDW 14.9 % (11.8-14.1); RDW-SD 56.8 fL; WBC 5.04 10^3/uL (4.4-10.8)
[2022-01-22 07:29] VITALS: BP 119/72; PULSE 62; RESP 18; TEMP 36.8; O2SAT 100
[2022-01-22 07:34] LABS: Platelet Count 77 10^3/uL (130-400)
[2022-01-22] MEDS: methylPREDNISolone SUCC 500 MG in Normal Saline 100 ML 216 MG IVPB (07:40)
[2022-01-22 07:41] LABS: C-Reactive Protein 0.71 mg/dL (0.0-0.3); CREATININE 1.8 mg/dL (0.70-1.30)
[2022-01-22 07:42] LABS: Creatine Kinase 1178 U/L (39-308)
[2022-01-22] MEDS: IMMUNE GLOBULIN 10 GM/100 ML BTL IVPB (08:14)
[2022-01-22 08:34] VITALS: BP 127/69; PULSE 60; RESP 16; TEMP 36.3; O2SAT 100
[2022-01-22 08:49] VITALS: BP 117/73; PULSE 59; RESP 16; TEMP 36.6; O2SAT 100
[2022-01-22] MEDS: IMMUNE GLOBULIN 40 GM/400 ML BTL IVPB ×3 (08:58→10:56)
[2022-01-22 09:19] VITALS: BP 144/74; PULSE 56; RESP 16; TEMP 36.9; O2SAT 100
[2022-01-22 09:50] VITALS: BP 152/74; PULSE 57; RESP 16; TEMP 36.7; O2SAT 100
[2022-01-22 10:17] VITALS: BP 149/81; PULSE 58; RESP 17; TEMP 36.8; O2SAT 100
[2022-01-23] VITALS (7 sets, daily range): BP systolic 137–182; BP diastolic 67–78; PULSE 47–60; RESP 18; TEMP 36.2–36.6; O2SAT 97–100
[2022-01-23] MEDS: Heparin 500 UNITS/5 ML SYRINGE IV (07:22)
[2022-01-23] MEDS: IMMUNE GLOBULIN 10 GM/100 ML BTL IVPB (07:22)
[2022-01-23] MEDS: Normal Saline Flush 10 ML SYR IVP (07:22)
[2022-01-23] MEDS: IMMUNE GLOBULIN 40 GM/400 ML BTL IVPB ×3 (08:08→10:10)
[2022-02-05] MEDS: Heparin 500 UNITS/5 ML SYRINGE IV (07:14)
[2022-02-05] MEDS: Normal Saline Flush 10 ML SYR IVP (07:14)
[2022-02-05 07:29] LABS: Abs Immature Grans 0.01 10^3/uL (0.0-0.06); Absolute Basophil Count 0.06 10^3/uL (0.0-0.2); Absolute Eosinophil Count 0.37 10^3/uL (0.0-0.7); Absolute Lymphocyte Count 0.49 10^3/uL (1.2-3.4); Absolute Monocyte Count 0.44 10^3/uL (0.1-0.8); Absolute Neutrophil Count 3.52 10^3/uL (1.2-6.7); Basophils % 1.2; Eosinophils % 7.6; HCT 35.9 % (40.0-50.0); HGB 11.3 g/dL (13.5-17.5); Immature Grans % 0.2; MCH 32.6 pg (27.0-33.0); MCHC 31.5 % (32.0-36.0); MCV 104 fL (80-95); MPV 12.5 fL (8.0-11.0); RBC 3.47 10^6/uL (4.36-5.78); RDW 14.7 % (11.8-14.1); RDW-SD 56.2 fL; WBC 4.89 10^3/uL (4.4-10.8)
[2022-02-05 07:36] LABS: CREATININE 1.9 mg/dL (0.70-1.30); Estimated GFR 35.98 (mL/min/1.73m2)
[2022-02-05 08:05] LABS: Platelet Count 51 10^3/uL (130-400)
[2022-02-05 08:06] LABS: Diff Comment Diff Reviewed; RBC Morphology Normal
[2022-02-05 08:13] LABS: Iron 92 ug/dL (65-175); Total Iron Binding Capacity 304 ug/dL (250-450); Transferrin Sat 30 % (20-55)
== END 2022-02-07 23:59 | disposition home or self-care (01) ==
LOC: INF 02:51
PROVIDERS: Nurse Practitioner Adult Health; PCP Family Medicine; Visit Provider Family Medicine
DX: D50.9 Iron deficiency anemia, unspecified (principal); M60.9 Myositis, unspecified; T46.6X5A Adverse effect of antihyperlipidemic and antiarteriosclerotic drugs, initial encounter; N18.9 Chronic kidney disease, unspecified; D63.1 Anemia in chronic kidney disease; I12.9 Hypertensive chronic kidney disease with stage 1 through stage 4 chronic kidney disease, or unspecified chronic kidney disease; Z45.2 Encounter for adjustment and management of vascular access device
CPT/HCPCS: 36591; 82550; 96365; 96366; 96372; 96523; 99214; 82565; 83540; 83550; 85025; 86140; J0881; J1459; J2930

== ENCOUNTER 2022-02-05 13:34 | Outpatient (CLI) | payer MEDICARE, SELFPAY ==
--- NOTE | 2022-02-05 13:30 | RT.EKG_ITS ---
APPROVED REPORT Exam: Resting ECG Reason for Exam: NPW, Baseline needed Patient Location: O HR:69 bpm ECG Measurements Heart Rate 69 AXIS MS 170 P 44 QRSd 118 QRS -10 QT 414 T 163 QTc 444 Conclusion Sinus rhythm...normal P axis, V-rate 50- 99 LVH with IVCD and secondary repol abnrm...multi-criteria, wQRSd, abnr ST-T
== END 2022-02-05 13:35 | disposition home or self-care (01) ==
LOC: DI.CARD 13:35
PROVIDERS: PCP Family Medicine; Visit Provider Internal Medicine Cardiovascular Disease
DX: I10 Essential (primary) hypertension (principal); I26.99 Other pulmonary embolism without acute cor pulmonale; I42.9 Cardiomyopathy, unspecified; R01.1 Cardiac murmur, unspecified; R77.8 Other specified abnormalities of plasma proteins; R94.31 Abnormal electrocardiogram [ECG] [EKG]
CPT/HCPCS: 93010

== ENCOUNTER 2022-03-05 02:25 | Outpatient (RCR) | payer MEDICARE, SELFPAY ==
[2022-02-08 00:04] VITALS: BP 182/78; PULSE 50; RESP 18; TEMP 36.2
[2022-02-19] VITALS (7 sets, daily range): BP systolic 109–176; BP diastolic 62–85; PULSE 55–59; RESP 16–18; TEMP 36.5–36.8; O2SAT 98–100
[2022-02-19 07:37] LABS: Abs Immature Grans 0.01 10^3/uL (0.0-0.06); Absolute Basophil Count 0.07 10^3/uL (0.0-0.2); Absolute Eosinophil Count 0.63 10^3/uL (0.0-0.7); Absolute Lymphocyte Count 0.57 10^3/uL (1.2-3.4); Absolute Monocyte Count 0.34 10^3/uL (0.1-0.8); Absolute Neutrophil Count 2.97 10^3/uL (1.2-6.7); Basophils % 1.5; Eosinophils % 13.7; HCT 38.2 % (40.0-50.0); HGB 12.7 g/dL (13.5-17.5); Immature Grans % 0.2; Lymphocytes % 12.4; MCH 33.8 pg (27.0-33.0); MCHC 33.2 % (32.0-36.0); MCV 102 fL (80-95); MPV 10.7 fL (8.0-11.0); Monocytes % 7.4; Neutrophils % 64.8; RBC 3.76 10^6/uL (4.36-5.78); RDW 14.9 % (11.8-14.1); RDW-SD 55.8 fL; WBC 4.59 10^3/uL (4.4-10.8)
[2022-02-19 07:56] LABS: C-Reactive Protein 0.83 mg/dL (0.0-0.3); CREATININE 1.9 mg/dL (0.70-1.30); Creatine Kinase 367 U/L (39-308); Estimated GFR 39.15 (mL/min/1.73m2)
[2022-02-19] MEDS: methylPREDNISolone SUCC 500 MG in Normal Saline 100 ML 216 MG IVPB (07:58)
[2022-02-19 08:01] LABS: Platelet Count 76 10^3/uL (130-400)
[2022-02-19] MEDS: IMMUNE GLOBULIN 10 GM/100 ML BTL IVPB (08:27)
[2022-02-19] MEDS: Normal Saline Flush 10 ML SYR IVP (08:28)
[2022-02-19] MEDS: IMMUNE GLOBULIN 40 GM/400 ML BTL IVPB ×3 (09:14→11:15)
[2022-02-20 07:05] VITALS: BP 137/71; PULSE 59; RESP 20; TEMP 37.3; O2SAT 96
[2022-02-20] MEDS: IMMUNE GLOBULIN 10 GM/100 ML BTL IVPB (07:40)
[2022-02-20] MEDS: Heparin 500 UNITS/5 ML SYRINGE IV (07:40)
[2022-02-20] MEDS: Normal Saline Flush 10 ML SYR IVP (07:40)
[2022-02-20 08:00] VITALS: BP 154/71; PULSE 50; RESP 18; TEMP 37.2; O2SAT 98
[2022-02-20 08:15] VITALS: BP 161/73; PULSE 63; RESP 18; TEMP 36.9; O2SAT 99
[2022-02-20] MEDS: IMMUNE GLOBULIN 40 GM/400 ML BTL IVPB ×3 (08:29→10:25)
[2022-02-20 08:45] VITALS: BP 169/72; PULSE 48; RESP 18; TEMP 36.8; O2SAT 97
[2022-02-20 09:15] VITALS: BP 156/63; PULSE 50; RESP 18; TEMP 36.8; O2SAT 97
[2022-02-20 09:49] VITALS: BP 182/69; PULSE 48; RESP 18; TEMP 36.6; O2SAT 99
[2022-03-05 07:37] LABS: Abs Immature Grans 0.01 10^3/uL (0.0-0.06); Absolute Basophil Count 0.06 10^3/uL (0.0-0.2); Absolute Eosinophil Count 0.37 10^3/uL (0.0-0.7); Absolute Lymphocyte Count 0.44 10^3/uL (1.2-3.4); Absolute Monocyte Count 0.31 10^3/uL (0.1-0.8); Absolute Neutrophil Count 3.33 10^3/uL (1.2-6.7); Basophils % 1.3; Eosinophils % 8.2; HCT 36.2 % (40.0-50.0); HGB 11.6 g/dL (13.5-17.5); Immature Grans % 0.2; Lymphocytes % 9.7; MCH 32.8 pg (27.0-33.0); MCV 102 fL (80-95); MPV 11.7 fL (8.0-11.0); Monocytes % 6.9; Neutrophils % 73.7; RBC 3.54 10^6/uL (4.36-5.78); RDW 14.6 % (11.8-14.1); RDW-SD 55.3 fL; WBC 4.52 10^3/uL (4.4-10.8)
[2022-03-05 07:43] LABS: CREATININE 1.8 mg/dL (0.70-1.30); Estimated GFR 41.77 (mL/min/1.73m2)
[2022-03-05 07:57] LABS: Diff Comment Diff Reviewed; Platelet Count 52 10^3/uL (130-400); RBC Morphology Normal
[2022-03-05 08:09] LABS: Iron 75 ug/dL (65-175); Total Iron Binding Capacity 275 ug/dL (250-450); Transferrin Sat 27 % (20-55)
[2022-03-05] MEDS: IRON SUCROSE COMPLEX 300 MG in Normal Saline 250 ML 176.667 MG IVPB (08:30)
[2022-03-05] MEDS: Normal Saline Flush 10 ML SYR IVP (08:30)
== END 2022-03-09 23:59 | disposition home or self-care (01) ==
LOC: INF 02:25
PROVIDERS: Nurse Practitioner Adult Health; PCP Family Medicine; Visit Provider Family Medicine
DX: D50.9 Iron deficiency anemia, unspecified (principal); M60.9 Myositis, unspecified; D63.1 Anemia in chronic kidney disease; Z79.52 Long term (current) use of systemic steroids; Z45.2 Encounter for adjustment and management of vascular access device
CPT/HCPCS: 36591; 82550; 96365; 96366; 96372; 82565; 83540; 83550; 85025; 86140; J0881; J1459; J1756; J2930

== ENCOUNTER 2022-04-02 02:21 | Outpatient (RCR) | payer MEDICARE, SELFPAY ==
[2022-03-10 00:05] VITALS: BP 182/69; PULSE 48; RESP 18; TEMP 36.6
[2022-03-19] VITALS (8 sets, daily range): BP systolic 125–171; BP diastolic 61–90; PULSE 60–67; RESP 17–18; TEMP 36.5–36.7; O2SAT 99–100
[2022-03-19] MEDS: Normal Saline Flush 10 ML SYR IVP (07:14)
[2022-03-19 07:36] LABS: Absolute Basophil Count 0.04 10^3/uL (0.0-0.2); Absolute Lymphocyte Count 0.45 10^3/uL (1.2-3.4); Absolute Neutrophil Count 2.41 10^3/uL (1.2-6.7); Basophils % 1.1; Eosinophils % 13.5; HCT 35.6 % (40.0-50.0); HGB 11.6 g/dL (13.5-17.5); Lymphocytes % 12.2; MCH 33.4 pg (27.0-33.0); MCHC 32.6 % (32.0-36.0); MCV 103 fL (80-95); MPV 12.3 fL (8.0-11.0); Monocytes % 8.1; Neutrophils % 65.1; RBC 3.47 10^6/uL (4.36-5.78); RDW 15.1 % (11.8-14.1); RDW-SD 56.8 fL
[2022-03-19] MEDS: methylPREDNISolone SUCC 500 MG in Normal Saline 100 ML 216 MG IVPB (07:42)
[2022-03-19 07:52] LABS: C-Reactive Protein 1.08 mg/dL (0.0-0.3); CREATININE 1.7 mg/dL (0.70-1.30); Creatine Kinase 154 U/L (39-308); Estimated GFR 44.74 (mL/min/1.73m2)
[2022-03-19 07:57] LABS: Diff Comment Diff Reviewed; Platelet Count 56 10^3/uL (130-400); RBC Morphology Normal
[2022-03-19] MEDS: IMMUNE GLOBULIN 10 GM/100 ML BTL IVPB (08:16)
[2022-03-19] MEDS: IMMUNE GLOBULIN 40 GM/400 ML BTL IVPB ×3 (09:03→11:04)
[2022-03-20] VITALS (7 sets, daily range): BP systolic 154–175; BP diastolic 65–79; PULSE 51–62; RESP 18; TEMP 36.6–36.9; O2SAT 98–100
[2022-03-20] MEDS: IMMUNE GLOBULIN 10 GM/100 ML BTL IVPB (07:35)
[2022-03-20] MEDS: Normal Saline Flush 10 ML SYR IVP (07:36)
[2022-03-20] MEDS: IMMUNE GLOBULIN 40 GM/400 ML BTL IVPB ×3 (08:15→10:25)
[2022-04-02 07:32] LABS: Abs Immature Grans 0.01 10^3/uL (0.0-0.06); Absolute Basophil Count 0.06 10^3/uL (0.0-0.2); Absolute Eosinophil Count 0.44 10^3/uL (0.0-0.7); Absolute Lymphocyte Count 0.56 10^3/uL (1.2-3.4); Absolute Monocyte Count 0.31 10^3/uL (0.1-0.8); Basophils % 1.2; HGB 12.4 g/dL (13.5-17.5); Immature Grans % 0.2; Lymphocytes % 11.5; MCH 32.7 pg (27.0-33.0); MCHC 31.8 % (32.0-36.0); MCV 103 fL (80-95); MPV 11.6 fL (8.0-11.0); Monocytes % 6.4; Neutrophils % 71.7; RBC 3.79 10^6/uL (4.36-5.78); RDW 14.8 % (11.8-14.1); RDW-SD 55.8 fL; WBC 4.88 10^3/uL (4.4-10.8)
[2022-04-02 07:40] LABS: CREATININE 1.8 mg/dL (0.70-1.30); Estimated GFR 41.51 (mL/min/1.73m2)
[2022-04-02 07:58] LABS: Diff Comment Diff Reviewed; Platelet Count 70 10^3/uL (130-400); RBC Morphology Normal
[2022-04-02 08:33] LABS: Iron 90 ug/dL (65-175); Total Iron Binding Capacity 337 ug/dL (250-450); Transferrin Sat 27 % (20-55)
[2022-04-02] MEDS: IRON SUCROSE COMPLEX 300 MG in Normal Saline 250 ML 176.667 MG IVPB (09:18)
[2022-04-02] MEDS: Heparin 500 UNITS/5 ML SYRINGE IV (09:18)
[2022-04-02] MEDS: Normal Saline Flush 10 ML SYR IVP (09:18)
== END 2022-04-09 23:59 | disposition home or self-care (01) ==
LOC: INF 02:21
PROVIDERS: Nurse Practitioner Adult Health; PCP Family Medicine; Visit Provider Family Medicine
DX: D50.9 Iron deficiency anemia, unspecified (principal); D63.1 Anemia in chronic kidney disease; Z45.2 Encounter for adjustment and management of vascular access device; M60.9 Myositis, unspecified
CPT/HCPCS: 36591; 82550; 96365; 96366; 96372; 82565; 83540; 83550; 85025; 86140; J0881; J1459; J1756; J2930

== ENCOUNTER 2022-04-11 10:36 | Emergency (ER) | payer MEDICARE, SELFPAY ==
[2022-04-11 10:44] VITALS: BP 125/57; PULSE 88; RESP 20; TEMP 39; O2SAT 96
--- OUTSIDE RECORDS SUMMARY | 2022-04-11 10:46 | XMS_ITS | Encounter Summary ---
:1960 Author Organization [facility] Address [facility] [place] [address] Care Team Providers Name Role Phone Jazmine Baer MD Primary Care Provider Encounter Details Date Type Department Care Team Description 03/07/2022 Office Visit Nephrology Hypertension Lea Villavicencio MD [facility] [place] [address] Stage 3b chronic kidney disease; at 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 Hypertens ion, unspecified type; Drive Type 2 diabetes mellitus wit h diabetic nephropathy, without long-term current use of insulin; [place] [address] Obesity, unspecified classif ication, unspecified obesity type, unspecified whether serious comorbidity present [phone] Social History Tobacco Use Types Packs/Day Years Used Date Never Smoker Smokeless Tobacco: Never Used Alcohol Use Standard Drinks/Week Comments No 0 (1 standard drink = 0.6 oz pure alcoho l) Sex Assigned at Date Recorded Not on file documented as of this encounter Last Filed Vital Signs Vital Sign Reading Time Taken Comments Blood Pressure 155/62 03/07/2022 9:09 AM EDT Pulse 62 03/07/2022 9:09 AM EDT Temperature - - Respiratory Rate - - Oxygen Saturation - - Inhaled Oxygen Concentration - - Weight 122.8 kg (270 lb 12.8 oz) 03/07/2022 9:09 AM EDT Height - - Body Mass Index 39.99 01/31/2022 8:30 AM EDT documented in this encounter Patient Instructions Patient InstructionsOralia Thomas RN - 03/07/2022 9:00 AM EDT Your kidney function is doing great; it really hasn't changed in the last year. Dr. Villavicencio does not feel we need to change anything in that regard. It may be helpful for you to have a separate sliding scale for insulin when you have your Solu-medrol dose given to help keep your blood sugars down. Call if you feel differently (consistent symptoms of nausea, vomiting, little appeal for food, itching, change in sleep patterns, worsening energy levels, shortness of breath). These are some of the signs of worsening kidney function. We will see you sooner if you are not feeling well. Please call. Oralia Thomas RN Chronic Kidney Disease Nurse Clinician [facility] Nephrology documented in this encounter Progress Notes Lea Villavicencio MD - 03/07/2022 9:00 AM EDT Images from the original note were not included. [facility] [address] [place] [address] Reason for Clinic Visit: Systems Review and CKD management. 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 ?? Bucky is doing well. Conitnues intermittent IVIG for management of chronic statin induced myopathy presenting in 2008.. No recent gout. Obesity: Has lost approximately 30 lb in the past 18 months. Working on portion control and exercise for weight loss. Bucky reports no specific uremic symptoms as de tailed. History obtained by RN Specialist: Last seen in clinic on 05/02/21, eGFR 40. 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 Patient's gout remains well controlled. Review of Systems: Sign/Symptom Comments Activity level/fatigue: Fair - still takes a while to get things done, a lot due to the autoimmune issues Change in sleep patterns: Hit or miss; a lot of times it is hard to get to sleep, and then has difficulty staying asleep. He sleeps for a couple hours at a time. Does not nap during the day Nocturia: Up once or twice for urination Appetite changes: Slim Fast in the morning for breakfast to help lose weight, otherwise he will havea small meal or not eat. Has a lot of tuna fish and chicken Food aversions: Kind of tired of all of it, but no specific odd tastes Nausea: None Vomiting: None Bowels: No issues Edema: No pitting Shortness of breath: Occasionally if he's going up a hill or stairs Orthopnea/PND: No PND; 2 pillows Muscle Cramping: No Cold intolerance: Yes, feels especially cold Itching: Has always had itching, no changes Bruising/bleeding: Has had some bruises in his hands/arms lately Mental Status Changes: No change Recent Home Blood Pressure Control: 123/80 Recent Lipid Management: Allergic to statins Recent Diabetic Management Depends. It goes really high when he has solu-medrol. Runs from 80s to 250s after a meal. Will stay in the 300s when on the steroid dosing. Additional CCM Comments: How's your health been in the last 4 weeks: Poor, Fair, Good, Very Good, Excellent Advanced Directives: None on file in eD-H Social Determinant Date/Comments Food Security/ Nutritional Education Low salt diet. Receives food stamps. Stable Housing/ Safety Concerns Stable housing Community Supports/ Transportation issues/ Appointment coordination Lives with spouse. 4 adult sons live nearby. Supportive family network. 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 SSDI is primary income. Pt is disabled and not able to work. Hepatitis B Status: Serum Testing Date of Testing Results Hep B sAb/Hep B sAg Not tested Vaccination Status: Two doses recorded in 2013 and 2014 Education: AAKP Phase One Booklet, Options video, Kidney Beginnings, Decision Aid:??none given 12/25 - [facility] Nutrition Counter and Potassium Content of Foods given.?? Anticipated Renal Replacement Therapy Plan: not discussed. Transplant evaluation: ??Not discussed Fistula Date/Type of Initial Access/Surgeon: He is right handed; he has a mediport on the right side. When you have IV's or blood drawn use your RIGHT arm. Save your LEFT arm from venipuncture. (i.e. Do not use your left arm for blood drawing.) ?? Patient has a Mediport in his right neck for his monthly infusions PMH: Past Medical History: Diagnosis Date ??? Cirrhosis ??? Diabetes ??? DM II (diabetes mellitus, type II), controlled ??? Gout ??? Hyperlipidemia ??? Hypertension ??? Kidney stone ??? 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 Obesity ??? Shingles 2009 ALLERGIES: Allergies Allergen Reactions ??? Methotrexate Hives, Itching and Rash Other reaction(s): Unknown ??? Morphine Itching ??? Ypjvyoi-Jbv-Mif Reductase Inhibitors Myopathy MEDICATIONS: Current Outpatient Medications Medication Sig Dispense Refill ??? clopidogreL (Plavix) 75 mg Tablet ??? ondansetron ODT (Zofran-ODT) 4 mg Tablet, Rapid Dissolve DISSOLVE 1 TABLET IN MOUTH TWICE DAILY NEEDED FOR NAUSEA ??? magnesium oxide (Mag-Ox) 400 mg (241.3 mg magnesium) Tablet Take by mouth 2 times daily. ??? canagliflozin (Invokana) 100 mg Tablet Take 100 mg by mouth daily. Indications: type 2 diabetes mellitus ??? losartan (Cozaar) 50 mg Tablet Take 50 mg by mouth daily. ??? nitroGLYcerin (Nitrostat) 0.4 mg Tablet, Sublingual Place 0.4 mg under the tongue every 5 minutes as needed for Chest pain. ??? aspirin EC 81 mg Tablet, Delayed Release (E.C.) Take 81 mg by mouth daily. ??? carvediloL (Coreg) 3.125 mg Tablet Take 12.5 mg by mouth 2 times daily (with meals). ??? BD Ultra-Fine Short Pen Needle 31 gauge x 5/16 Needle Inject 1 each subcutaneously 5 times daily. ??? allopurinoL (Zyloprim) 100 mg Tablet Take 400 mg by mouth daily. ??? darbepoetin matt in polysorbat (ARANESP, IN POLYSORBATE, INJ) Inject as directed every 14 days. ??? HUMALOG KWIKPEN 100 unit/mL Insulin Pen 20 Units 3 times daily (with meals). 3 ??? ONETOUCH ULTRA TEST Strip 1 each by Other route 3 times daily. 3 ??? IMMUNE GLOBULIN,GAMMA,IGG, (IMMUNE GLOBULIN, HUMAN,, IGG, IV) 1,200 mg intravenously twice monthly. ??? insulin glargine (Lantus) 100 unit/mL (3 mL) pen Inject 40 Units subcutaneously nightly. ??? furosemide (LASIX) 20 mg Tablet Take 1 tablet by mouth daily. (Patient taking differently: Take 40 mg by mouth daily.) 30 tablet 12 ??? multivitamin Capsule Take 1 capsule by mouth daily. No current facility-administered medications for this visit. PHYSICAL EXAM: Vitals: 03/07/22 0909 BP: 155/62 Pulse: 62 Weight: 122.8 kg (270 lb 12.8 oz) Body mass index is 39.99 kg/m??. General appearance Obese, mildly plethoric, Appears well, alert Head Atraumatic Eyes No pallor, no scleral icterus ENT Neck No JVD Respiratory CTA bilaterally. No added sounds COR/Vascular RRR No RMG Abdomen Soft, non tender, obese Not examined Skin Intact face, neck, limbs, upper trunk. No rash Neuro Intact. Normal facies, gait. Normal speech and mentation Asterixis None present Extremities Trace edema L + R to mid kim. No sacral edema Psych Mood is appropriate LABS: Serum creatinine Recent Results (from the past 336 hour(s)) PTH Collection Time: 03/07/22 7:55 AM Result Value Ref Range PTH 50 15 - 65 pg/mL Uric acid Collection Time: 03/07/22 7:55 AM Result Value Ref Range Uric Acid 4.2 3.5 - 8.5 mg/dL Albumin Level Collection Time: 03/07/22 7:55 AM Result Value Ref Range Albumin 3.7 3.2 - 5.2 g/dL Phosphorus Collection Time: 03/07/22 7:55 AM Result Value Ref Range Phosphorus 3.7 2.5 - 4.5 mg/dL Basic Metabolic Panel (non-fasting) Collection Time: 03/07/22 7:55 AM Result Value Ref Range Glucose Lvl 186 65 - 199 mg/dL BUN 57 (H) 10 - 20 mg/dL Creatinine 1.74 (H) 0.80 - 1.50 mg/dL Sodium 140 135 - 145 mmol/L Potassium 4.2 3.5 - 5.0 mmol/L Chloride 104 98 - 107 mmol/L CO2 26 22 - 31 mmol/L Anion Gap 10 5 - 15 mmol/L Calcium 9.4 8.5 - 10.5 mg/dL Estimated GFR 44 (L) >=60 mL/min/1.73 m?? Reticulocyte Count Collection Time: 03/07/22 7:55 AM Result Value Ref Range Retic Ct % 1.4 0.7 - 2.6 % Retic Ct Abs 0.050 0.030 - 0.120 x10(6)/mcL Immature Retic% 12.3 0.0 - 15.6 % Reticulated Hgb 38.2 31.3 - 40.2 pg Iron and TIBC Collection Time: 03/07/22 7:55 AM Result Value Ref Range Iron 100 45 - 160 mcg/dL TIBC 278 250 - 450 mcg/dL Iron Saturation 36 20 - 50 % Hemogram Collection Time: 03/07/22 7:55 AM Result Value Ref Range WBC 4.8 4.0 - 9.5 x10(3)/mcL RBC 3.61 (L) 4.58 - 5.54 x10(6)/mcL Hemoglobin 12.0 (L) 13.7 - 16.5 g/dL Hematocrit 36.3 (L) 40.5 - 48.5 % MCV 100.6 (H) 82.9 - 93.1 fL MCH 33.2 (H) 27.5 - 32.1 pg MCHC 33.1 32.0 - 35.7 g/dL Platelets 62 (L) 145 - 357 x10(3)/mcL RDWSD 54.9 (H) 36.0 - 45.0 fL RDWCV 14.8 (H) 11.4 - 13.8 % MPV 11.8 7.6 - 12.9 fL nRBC % Auto 0.0 % nRBC Abs Auto 0.000 0.000 - 0.000 x10(3)/mcL Differential, Automated Collection Time: 03/07/22 7:55 AM Result Value Ref Range Neutrophils % 68.4 % Neutr Abs (ANC) 3.26 1.70 - 6.10 x10(3)/mcL Lymphocytes % 12.2 % Lymphocytes Abs 0.6 (L) 0.9 - 3.2 x10(3)/mcL Monocytes % 7.8 % Monocyte Abs 0.4 0.3 - 0.9 x10(3)/mcL Eosinophils % 9.7 % Eosinophils Abs 0.5 (H) 0.0 - 0.4 x10(3)/mcL Basophils % 1.7 % Basophils Abs 0.1 0.0 - 0.1 x10(3)/mcL Immature Gran % 0.20 % Tamara Gran Abs 0.01 0.00 - 0.04 x10(3)/mcL ASSESSMENT AND PLAN: Problem: Chronic Kidney Disease Estimated GFR Date Value 03/07/2022 44 mL/min/1.73 m?? (L) 02/05/2022 35.98 01/22/2022 38.30 CKD Stage 3b Potassium Date Value Ref Range Status 03/07/2022 4.2 3.5 - 5.0 mmol/L Final Comment: Please note: Patients with WBC >100,000 may have falsely elevated Potassium levels. For accurate Potassium quantification in these patients send serum separator tube (gold top) for subsequent determinations. Contact the Clinical Chemistry Laboratory if there are any questions. 10/02/2021 4.9 3.5 - 5.1 Final 05/29/2021 4.5 3.5 - 5.1 Final CO2 (mmol/L) Date Value 03/07/2022 26 05/02/2021 26 03/03/2021 25 Not on bicarb Uric Acid (mg/dL) Date Value 03/07/2022 4.2 05/02/2021 4.4 08/24/2020 4.5 on allopurinol 400 mg daily Standard Recommendations: Reduce rate of progression. Education for CKD stage- specific issues. RN Notes: Your kidney function is doing great; it really hasn't changed in the last year. Dr. Neely not feel we need to change anything in that regard. /FINANCIAL AGENT A/P: Problem: Management of Anemia related to Chronic Kidney Disease (CKD) Hemoglobin (g/dL) Date Value 03/07/2022 12.0 (L) Goal: 9.5-10.9 g/dl Ferritin (ng/mL) Date Value 08/29/2020 1,177 (H) Goal: >100ng/ml Iron Saturation (%) Date Value 03/07/2022 36 Goal: >20% GREGOR: Yes; start date: ; last dose: Drug/Dose/Frequency: Aranesp 60 mcg every two weeks for Hgb < 12 Where administered (clinic/hospital/home): IV Iron replacement therapy (Venofer), Last dose: 300mg dose monthly for iron saturation < 20. Receives dosing for both through [place]. RN Notes: Give Aranesp according to Aranesp guidelines to attain Hemoglobin levels up to 10.9. If Hgb falls below 9.5 g/dl or rises over 10.9g/dl the dose or the frequency of the Aranesp should be adjusted. MD/FINANCIAL AGENT A/P: Problem: Hypertension BP: (155)/(62) Goal (if urine alb:cr ratio is <30mg/g): </= 140/90 Goal (if urine alb:cr ratio is >30mg/g): </= 130/80 Standard Recommendations: Sodium intake < 2 Gm per day. RN Notes: No changes MD/FINANCIAL AGENT A/P: Problem: Proteinuria Prot/Cre Ratio (ratio) Date Value 05/02/2021 1.2 Goal: <0.2mg/mg RN Notes: No changes MD/FINANCIAL AGENT A/P: Problem: Bone and mineral metabolism 25-OH Vit D Total (ng/mL) Date Value 08/24/2020 44 03/15/2020 41 03/31/2019 41 Not on vitamin D PTH (pg/mL) Date Value 03/07/2022 50 05/02/2021 85 (H) 08/24/2020 56 Not on calcitriol Goal: Stage 3: 35-70 pg/ml Stage 4: 70-110 pg/ml Stage 5: 150-300 pg/ml Phosphorus (mg/dL) Date Value 03/07/2022 3.7 05/02/2021 3.8 08/24/2020 3.6 Not on sevelamer/calcium carbonate (Tums)/calcium acetate Goal: 2.7-4.6mg/dl Calcium Date Value 03/07/2022 9.4 mg/dL 10/02/2021 8.3 (A) 05/29/2021 8.9 Not on calcium carbonate Goal: 8.5-10.5mg/dl RN Notes: No changes MD/FINANCIAL AGENT A/P: Problem: Nutrition Albumin Date Value 03/07/2022 3.7 g/dL 10/02/2021 2.8 (A) 05/02/2021 3.7 g/dL Goal: >/= 4.0 gm/dl Body mass index is 39.99 kg/m??. Goal: 20-25 kg/m2 RN Notes: No changes MD/FINANCIAL AGENT A/P: Problem: Diabetes Hemoglobin A1C (%) Date Value 02/16/2019 7.0 (H) 10/30/2017 10.1 (H) 04/11/2017 7.8 (H) Goal: ~7% Random blood glucose: 186 RN Notes: It may be helpful for you to have a separate sliding scale for insulin when you have your Solu-medrol dose given to help keep your blood sugars down. 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 ?? Bucky is doing well. Bibinues intermittent IVIG for management of chronic statin induced myopathy presenting in 2008.. No recent gout. Obesity: Has lost approximately 30 lb in the past 18 months. Working on portion control and exercise for weight loss. Bucky reports no specific uremic symptoms as detailed Recommend monitor home blood pressure and up-titrate losartan as needed with goal SBP < 120 mm Hgon average. Return to CKD clinic: 6 months in Nephrology clinic documented in this encounter Plan of Treatment Upcoming Encounters Date Type Specialty Care Team Description 06/19/2022 Office Visit Rheumatology Richi Blackmon MD [facility] DR RHEUMATOLOGY [place], [place] [address] (Wo rk) Scheduled Procedures Name Priority Associated Diagnoses Date/Time EGD, UPPER GI ENDOSCOPY Family hx of colon cance r COLONOSCOPY, DIAGNOSTIC Family hx of colon cance r documented as of this encounter Visit Diagnoses Diagnosis Stage 3b chronic kidney disease Hyperuricemia Other abnormal blood chemistry Hypertension, unspecified type Type 2 diabetes mellitus with diabetic n ephropathy, without long-term current use of insulin Obesity, unspecified classification, uns pecified obesity type, unspecified whether serious comorbidity present documented in this encounter Care Teams Interventional Neuroradiologist Relationship Specialty Start Date End Date Jazmine Baer MD PCP - General 11/07/10 [address] [place] [address] documented as of this encounter
--- OUTSIDE RECORDS SUMMARY | 2022-04-11 10:46 | XMS_ITS | Clinical Summary ---
:1960 Author Organization [facility] [place] [address] Care Team Providers Name Role Phone Jazmine Baer MD Primary Care Provider Allergies Active Allergy Reactions Severity Noted Date Comments Methotrexate Hives, Itching, Rash 07/08/2014 Other r eaction(s): Unknown Morphine Itching 02/16/2014 Jhrvwvb-Bzb-Gns Myopathy Reductase Inhibitors Medications Medication Sig Dispensed Refills Start Date End Date Status multivitamin Capsule Take 1 capsule by 0 Active mouth daily. furosemide (LASIX) 20 Take 1 tablet by 30 tablet 12 03/25/2015 Active mg TabletIndications: mouth daily. Myopathy Additional Information Patient taking differently: 40 mg Oral DAILY, Reported on 03/07/2022 insulin glargine (Lantus) 100 Inject 40 Units subcutaneously 0 Active unit/mL (3 mL) pen nightly. ONETOUCH ULTRA TEST Strip 1 each by Other route 3 times 3 10/23/2016 Active daily. IMMUNE GLOBULIN,GAMMA,IGG, 1,200 mg intravenously twice 0 Active (IMMUNE GLOBULIN, HUMAN,, IGG, monthly. IV) HUMALOG KWIKPEN 100 unit/mL 20 Units 3 times daily (with 3 02/16/2017 Active Insulin Pen meals). allopurinoL (Zyloprim) 100 mg Take 400 mg by mouth daily. 0 Active Tablet darbepoetin matt in polysorbat Inject as directed every 14 0 Active (ARANESP, IN POLYSORBATE, INJ) days. BD Ultra-Fine Short Pen Needle Inject 1 each subcutaneously 5 0 02/28/2020 Active 31 gauge x 5/16 Needle times daily. canagliflozin (Invokana) 100 Take 100 mg by mouth daily. 0 Active mg TabletIndications: type 2 Indications: type 2 diabetes diabetes mellitus mellitus losartan (Cozaar) 50 mg Tablet Take 50 mg by mouth daily. 0 Active nitroGLYcerin (Nitrostat) 0.[address] Place 0.4 mg under the tongue 0 Active mg Tablet, Sublingual every 5 minutes as needed for Chest pain. aspirin EC 81 mg Tablet, Take 81 mg by mouth daily. 0 Active Delayed Release (E.C.) carvediloL (Coreg) 3.125 mg Take 12.5 mg by mouth 2 times 0 Active Tablet daily (with meals). clopidogreL (Plavix) 75 mg 0 04/12/2021 Active Tablet ondansetron ODT (Zofran-ODT) 4 DISSOLVE 1 TABLET IN MOUTH 0 02/16/2021 Active mg Tablet, Rapid Dissolve TWICE DAILY NEEDED FOR NAUSEA magnesium oxide (Mag-Ox) 400 Take by mouth 2 times daily. 0 05/08/2021 Active mg (241.3 mg magnesium) Tablet carvediloL (Coreg) 12.5 mg TAKE 1 TABLET (12.5 MG) BY 0 02/01/2022 Active Tablet MOUTH TWICE DAILY WITH A MEAL/FOOD furosemide (Lasix) 40 mg Take 40 mg by mouth daily. 0 12/31/2021 Active Tablet calcium carbonate (Tums) 200 Take 2 tablets by mouth daily. 0 03/15/2022 Active mg calcium (500 mg) Tablet, Chewable Active Problems Problem Noted Date Anemia, iron deficiency 01/21/2018 CKD (chronic kidney disease) stage 3, GFR 30-59 ml/min 09/26/2017 Chronic fatigue 01/27/2017 Thrombocytopenia 01/25/2017 Gout 08/02/2016 Myositis 07/09/2016 Imbalance 08/26/2014 Skin rash 07/09/2014 Durand's esophagus 11/04/2013 Overview: Secondary to GERD Nonalcoholic steatohepatitis (HORTON) 11/04/2013 Anemia 11/04/2013 Overview: BMBX was negative. Unclear cause. Either anemia of chronic disease or possibly due to renal insufficiency and decreased epo production. 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 Used to see Dr. Bucky Marie @ [facility] ?? Initial work up and differential diag nosis ?? Onset: late 2008, pain in back & RLE, progressive weakness with walking in setting of being on statin x about 9 years ?? Jun 2009: progressive muscle weakness ?? No improvement with stopping statin & oral prednisone -> further work [place] for [place] [address] ?? Muscle Bx @ [facility] [place] Jul 2009 (Dr. Carolina george) c/w necrotizing myopathy (cannot rule out inclusion body myositis) ?? Bx reviewed by Dr. Ricardo in [place], c onsistent with necrotizing myopathy without significant infalmmation ?? Treated with IVIG & steroids, improve d some but relapsed more than once ?? --> immune mediated necrotizing myopa thy suspected (statin induced vs paraneoplastic) ?? Paraneoplastic work up negative ?? Immunotherapy: ?? Was on prednisone previously, then MT X and monthly IVIG infusions ?? IVIG seemed to be the only effective treatment ?? Workup: ?? TPMT enzyme activity 08/2009 normal ?? Myositis Antibody Panel Plus 06/2009 n egative (anti-Kiesha, PM/SCL, TX-2, PL-7, PL-12, EJ, OJ KU, U2 SN GROCERY STORE ASSOCIATE, SRP) ?? mitochondrial mutations: Absence of a ll screened point mtDNA mutations and deletions associated with neuromuscular disorders. 2012 ?? Was off IVIG from Apr 2012 - Jul 2012 , no change in muscle strength ?? IVIG restarted, 2 days IVIG per month , on MTX 15mg qweekly ?? Weakness stabilized, improved a bit o n exam (3/5 proximal LEs) August 2013 ?? Has exam findings of distal LE sensor y deficits consistent with diabetic neuropathy (very poorly controlled DM) ?? Stopped MTX in summer (seen in [place] for this decision) but stopped seeing Dr. Olivera ?? C/o back pain ?? 4/5 proximal LE strengths ?? Still on IVIG 2 days / month September - October 2013 ?? CK 719 (09/11) --> 664 (09/29) ?? (+) port-induced thrombosis. IVIG dis continued, placed on coumadin Mar 2014 ?? CK 3555 (03/17). Main complaint = low back pain Jun - Jul 2014 ?? Worsening weakness, hard to do stairs ?? CK 8581 -> IVIG x 5 days inpatient ( - 07/13), started on cellcept 250mg daily ?? CK 6277 prior to discharge on 07/12 ?? CK 8738 on 07/29, mild weakness in LUE , and worsened severe weakness in hip flexors compared to the time of discharge ?? Plan titrate cellcept up to 1000mg BI D (schedule given to patient) ?? CK on 08/05 (prior to 2 days of IVIG) was 5720, A1c 6.4 ?? Anti HMGCR Ab positive at titer value >200 (negative <20, strongly positive >=60), repeat muscle biopsy deferred August 2014 ?? Case presented at muscle meeting, adm itted to initiate Rituxan and stop IVIG as weakness worse ?? CK 4393 (08/17), 4329 (08/25) ?? Developed diarrhea with cellcept, sto pped ?? Rituxan started on 08/18 (4 weekly dos es for induction to be completed on 09/15) Plan: ?? Check CD19 level [address] Rituxan induction dose ?? Rituxan to be given Q3-6 months based on CD19 level REFERENCES: Curr Opin Rheumatol. 2010;23(6):612- 9. doi: 10.1097/BOR.[id number]. Necrotizing autoimmune myopathy. Sherwin Madden, Navya M. Muscle Nerve. 2009;41(2):185-90. doi : 10.1002/mus.93550. Immune-mediated necrotizing myopathy ass ociated with statins. Lewis P1, Dominik HD, Jamilah fernandez SA, Keith J, Julissa J, Davion AA. 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; Other specified disorders of bone density and structure, other site ; Gout, unspecifi ed cause, unspecified chronicity, unspecified site; HMG-CoA myositi s; Chronic kidney disease, unspecified CKD stage ; High risk medic ation use 03/14/2022 Telephone Rheumatology Violet Neumann, RMA 03/07/2022 Office Visit Nephrology Lea Villavicencio, Stage 3b c hronic kidney disease; Hyperuricemia; Optimization Engineer, Hypertensio n, unspecified type; B Type 2 diabetes mellitus with diabetic nephropathy, without long-term current use of insulin; Obesity, unspec ified classification, unspecified obesity type, unspecified whether serious comorbidity present 03/07/2022 Laboratory Lab Stage 3b chroni c kidney disease; Appointment Bicytopenia; Iron deficiency anemia, unspecified iron deficiency anemia type; Anemia in stage 3a chronic kidney disease 02/24/2022 External Results Hematology and Jessica Santos Oncology R, RN 02/16/2022 Orders Only Nephrology Sofi, Stage 3b chroni c [facility] [place] kidney disease 02/06/2022 External Results Hematology and Ankita Alonzo analytical statistician 01/31/2022 Office Visit Gastroenterology Tc, Family hx o f colon Slade Mack MD cancer (Primar y Dx) from Last 3 Months Immunizations Name Administration Dates Next Due Hepatitis B Vaccine, Adult 08/10/2014, 01/27/2014 Influenza Vaccine PF, Quadrivalent 03/15/2022, 03/31/2019 Influenza Vaccine w/Preservative, Split 04/29/2015, 03/10/20 14 Influenza Vaccine, Whole 03/10/2009, 04/23/2006 Pneumococcal Polyvalent 23 08/13/2014 Family History Medical History Relation Comments Coronary Artery Disease Father Hyperlipidemia Father Hypertension Father Myocardial Infarction Father first [place] at 36 Colorectal Cancer Mother Diabetes Mother Obesity Mother Stomach Cancer Other uncle Cirrhosis Paternal Aunt Alcohol Abuse Type 2 Diabetes Paternal Uncle Obesity Sister 2 Type 2 Diabetes Sister 3 Relation Status Comments Father (Age 60) [place], HTN, hyperlipide nupur Maternal Grandfather (Age 87) unknown Maternal Grandmother (Age 50s) unknown Mother (Age 59) DM2, colorectal canc er, obesity Other Paternal Aunt Paternal Grandfather (Age 74) unknown Paternal Grandmother (Age 50s) unknown Paternal Uncle Sister 1 Alive age 56, DM2, obesity Sister 2 Sister 3 Son 1 Alive age 33, healthy Son 2 Alive age 30, healthy Son 3 Alive age 27, seizure diso rder (tuberous sclerosis) Son 4 Alive age 24, healthy Social History Tobacco Use Types Packs/Day Years Used Date Never Smoker Smokeless Tobacco: Never Used Alcohol Use Standard Drinks/Week Comments No 0 (1 standard drink = 0.6 oz pure alcoho l) Sex Assigned at Date Recorded Not on file Last Filed Vital Signs Vital Sign Reading Time Taken Comments Blood Pressure 162/60 03/15/2022 10:45 AM EDT Pulse 62 03/15/2022 10:45 AM EDT Temperature 36.4 ??C (97.5 ??F) 03/15/2022 10:45 AM EDT Respiratory Rate 22 03/15/2022 10:45 AM EDT Oxygen Saturation 100% 03/15/2022 10:45 AM EDT Inhaled Oxygen Concentration - - Weight 122.8 kg (270 lb 12.8 oz) 03/15/2022 10:45 AM EDT Height 175.3 cm (5' 9) 03/15/2022 10:45 AM EDT Body Mass Index 39.99 03/15/2022 10:45 AM EDT Plan of Treatment Upcoming Encounters Date Type Specialty Care Team Description 06/19/2022 Office Visit Rheumatology Richi Blackmon MD [facility] [place], [place] [address] (Wo rk) Scheduled Procedures Name Priority Associated Diagnoses Date/Time EGD, UPPER GI ENDOSCOPY Family hx of colon cance r COLONOSCOPY, DIAGNOSTIC Family hx of colon cance r Health Maintenance Due Date Last Done Comments Covid-19 Vaccine (#1) 1960 DM Opthalmology Exam 1968 HIV screen 1976 Hepatitis C Screening 1976 Tdap adult 1977 Tetanus vaccine 1977 Zoster vaccine (1 of 2) 2008 Advance Directive 2013 Pneumococcal Vaccine: At-Risk 08/14/2015 08/13/2014 5-64yrs (2 - PCV) DM Hemoglobin A1c 05/18/2019 02/16/2019, 10/30/2017, 04/11/2017, Additional history exists Lipid Screening 03/06/2021 03/06/2016 DM Urine Microalbumin yearly 08/24/2021 08/24/2020, 019, 07/02/2017 DM Creatinine yearly 03/19/2023 03/19/2022, 03/07/2022, 02/19/2022, Additional history exists Colonoscopy 11/12/2026 11/12/2016, 11/12/2016, 07/21/2013, Additional history exists Influenza (Flu) vaccine Completed 03/15/2022, 03/31/2019, 04/29/2015, Additional history exists Medical Devices Implanted Type Area Director Statistical Programming Device Shelf Model / Identifier Expiration Serial / Date Lot Port,8f,Sgl Lumen,Power ([id number])-11/04/2015 IMPLANTS Right: Bar d Vascular 06/06/2017 [id number] / Implanted: Qty: 1 on 11/04/2015 by Jayson Dias MD [employer] Systems - 0616 / Wall [id number] Description: OK FOR MRI SCANS PER SWAPNIL BANEGAS IN INTERVENTIONAL RADIOLOGY Procedures Procedure Name Priority Date/Time Associated Diagnosis Comme nts CBC (WITH DIFF) Routine 03/19/2022 7:10 AM Result s for this EDT procedure are i n the results section. LAB SCAN 03/19/2022 12:00 Results for this AM EDT procedure are i n the results section. LAB SCAN 03/19/2022 12:00 Results for this AM EDT procedure are i n the results section. HC CREATININE - NON Routine 03/07/2022 8:06 AM Stage 3b chroni c Results for this BLOOD EDT kidney disease procedure are in the results section. DIFFERENTIAL, Routine 03/07/2022 7:55 AM Stage 3b chronic Resu lts for this AUTOMATED EDT kidney disease procedure are in the results section. HEMOGRAM Routine 03/07/2022 7:55 AM Stage 3b chronic Resul ts for this EDT kidney disease procedure are in the results section. HC IRON BINDING Routine 03/07/2022 7:55 AM Bicytopenia Results for this CAPACITY EDT Iron deficiency procedure ar e in anemia, unspecified the resu lts iron deficiency section. anemia type Anemia in stage 3a chronic kidney disease HC FERRITIN, SERUM Routine 03/07/2022 7:55 AM Bicytopeni a Results for this EDT Iron deficiency procedure ar e in anemia, unspecified the resu lts iron deficiency section. anemia type Anemia in stage 3a chronic kidney disease HC RETIC,AUTO STAT 03/07/2022 7:55 AM Bicytopenia Results for this INCLUDES RETHE & IRF EDT Iron deficiency proc edure are in anemia, unspecified the resu lts iron deficiency section. 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 HC PHOSPHORUS, SERUM Routine 03/07/2022 7:55 AM Stage 3b chron ic Results for this EDT kidney disease procedure are in the results section. HC ALBUMIN, SERUM Routine 03/07/2022 7:55 AM Stage 3b chronic Results for this EDT kidney disease procedure are in the results section. HC URIC ACID, SERUM Routine 03/07/2022 7:55 AM Stage 3b chroni c Results for this EDT kidney disease procedure are in the results section. HC VENIPUNCTURE Routine 03/07/2022 7:55 AM Stage 3b chronic Re sults for this EDT kidney disease procedure are in the results section. LAB SCAN 03/06/2022 12:00 Results for this AM EDT procedure are i n the results section. LAB SCAN 03/06/2022 12:00 Results for this AM EDT procedure are i n the results section. CBC (WITH DIFF) Routine 02/19/2022 7:05 AM Result s for this EDT procedure are i n the results section. LAB SCAN 02/19/2022 12:00 Results for this AM EDT procedure are i n the results section. LAB SCAN 02/19/2022 12:00 Results for this AM EDT procedure are i n the results section. CBC (WITH DIFF) Routine 02/05/2022 Results for this procedure are i n the results section. CREATININE Routine 02/05/2022 Results for thi s procedure are i n the results section. IRON AND TIBC Routine 02/05/2022 Results for th is procedure are i n the results section. LAB SCAN 02/05/2022 12:00 Results for this AM EDT procedure are i n the results section. LAB SCAN 02/05/2022 12:00 Results for this AM EDT procedure are i n the results section. CBC (WITH DIFF) Routine 01/22/2022 Results for this procedure are i n the results section. CREATININE Routine 01/22/2022 Results for thi s procedure are i n the results section. CK Routine 01/22/2022 Results for thi s procedure are i n the results section. CRP, ACUTE Routine 01/22/2022 Results for thi s INFLAMMATION procedure are i n the results section. LAB SCAN 01/22/2022 12:00 Results for this AM EDT procedure are i n the results section. LAB SCAN 01/22/2022 12:00 Results for this AM EDT procedure are i n the results section. from Last 3 Months Results (ABNORMAL) CBC (with Diff) (03/19/2022 7:10 AM EDT)Only the most recent of4 resultswithin the time period is included. Analysis Performed At Patho logist Time Signature WBC 3.7 (A) 4.4 - 10.8 EXTERNAL LAB Hemoglobin 11.6 (A) 13.5 - EXTERNAL LAB 17.5 Hematocrit 35.6 (A) 40.0 - EXTERNAL LAB 50.0 Platelets 56 (A) 130 - 400 EXTERNAL LAB Neutr Abs (ANC) 2.41 1.2 - 6.7 EXTERNAL LAB Creatinine 1.7 (A) 0.7 - 1.3 EXTERNAL LAB CK, Total 154 39 - 308 EXTERNAL LAB CRP 1.08 (A) 0 - 0.3 EXTERNAL LAB Specimen (Source) Anatomical Collection Method Collection Time Re ceived Time Location / / Volume Laterality Blood 03/19/2022 7:10 AM EDT Historical Provider HEMATOLOGY ORDERABLES Performing Organization Address City/State/ZIP Code Phon e Number EXTERNAL FACILITY EXTERNAL LAB SCAN DOC: LAB (03/19/2022 12:00 AM EDT)Only the most recent of10 resultswithin the time period is included. Narrative 03/19/2022 12:00 AM EDT This result has an attachment that is no t available. Ordered by an unspecified provider. Scanning Provider MEDIA MGR SCAN EXT ORDR/RSLT Protein/Creatinine Ratio, urine (03/07/2022 8:06 AM EDT) P athologist Signature U Creatinine 18 mg/dL [facility] U Protein Ran <6 0 - 12 [facility] mg/dL [facility] Prot/Cre Ratio <0.3 ratio [facility] Specimen Anatomical Collection Method Collection Time Receive d Time (Source) Location / / Volume Laterality Urine 03/07/2022 8:06 AM 2 8:30 EDT AM EDT Resulting Agency Comment Spec In Lab Lea Villavicencio MD URINE ORDERABLES Performing Organization Address City/State/ZIP Code Phon e Number [address] PTH (03/07/2022 7:55 AM EDT) athologist Signature PTH 50 15 - 65 [facility] Specimen Anatomical Collection Method Collection Time Receive d Time (Source) Location / / Volume Laterality Blood 03/07/2022 7:55 AM 2 8:03 EDT AM EDT Resulting Agency Comment Spec In Lab Lea Villavicencio MD CHEMISTRY ORDERABLES Performing Organization Address City/[facility] Phon e Number [address] (ABNORMAL) Hemogram (03/07/2022 7:55 AM EDT) Patholo gist Method Time Signature WBC 4.8 4.0 - 9.5 [facility] x10(3)/[facility] LABORATORY RBC 3.61 (L) 4.58 - [facility] 5.54 [facility] x10(6)/[facility] LABORATORY Hemoglobin 12.0 (L) 13.7 - [facility] 16.5 g/dL [facility] Hematocrit 36.3 (L) 40.5 - [facility] 48.5 % [facility] MCV 100.6 (H) 82.9 - [facility] 93.1 fL [facility] MCH 33.2 (H) 27.5 - [place] 32.1 pg [facility] MCHC 33.1 32.0 - [place] 35.7 g/dL [facility] Platelets 62 (L) 145 - 357 [facility] x10(3)/[facility] LABORATORY RDWSD 54.9 (H) 36.0 - [facility] 45.0 [facility] LABORATORY RDWCV 14.8 (H) 11.4 - [facility] 13.8 % [facility] MPV 11.8 7.6 - 12.9 [facility] LABORATORY nRBC % Auto 0.0 % [facility] nRBC Abs Auto 0.000 0.000 - [facility] 0.000 [facility] x10(3)/[facility] LABORATORY Specimen Anatomical Collection Method Collection Time Receive d Time (Source) Location / / Volume Laterality Blood 03/07/2022 7:55 AM 8:03 EDT AM EDT Resulting Agency Comment Spec In Lab Lea Villavicencio MD HEMATOLOGY ORDERABLES Performing Organization Address City/State/[place] [address] (ABNORMAL) Differential, Automated (03/07/2022 7:55 AM EDT) [facility] gist Method Time Signature Neutrophils % 68.4 % [facility] Neutr Abs (ANC) 3.26 1.70 - [place] 6.10 [facility] x10(3)/[facility] LABORATORY Lymphocytes % 12.2 % [facility] Lymphocytes Abs 0.6 (L) 0.9 - 3.2 [facility] x10(3)/[facility] LABORATORY Monocytes % 7.8 % [facility] Monocyte Abs 0.4 0.3 - 0.9 [facility] x10(3)/[facility] LABORATORY Eosinophils % 9.7 % [facility] Eosinophils Abs 0.5 (H) 0.0 - 0.4 [facility] x10(3)/[facility] LABORATORY Basophils % 1.7 % [facility] Basophils Abs 0.1 0.0 - 0.1 [facility] x10(3)/[facility] LABORATORY Immature Gran % 0.20 % [facility] Comment: Immature granulocytes(IG's)percentage an d absolute count will include metamyelocytes, myelocytes, and promyelo cytes. Blood smears from CBCs yielding IG's will be scanned manually for concor dance. If this scan disagrees with the automated IG or if promyelocytes are not ed, a manual differential will be performed. Tamara Gran Abs 0.01 0.00 - 0.04 x10(3)/[facility] Specimen Anatomical Collection Method Collection Time Receive d Time (Source) Location / / Volume Laterality Blood 03/07/2022 7:55 AM 2 8:03 EDT AM EDT Resulting Agency Comment Spec In Lab Lea Villavicencio MD HEMATOLOGY ORDERABLES Performing Organization Address City/[facility] Phon e Number [address] Iron and TIBC (03/07/2022 7:55 AM EDT)Only the most recent of2 resultswithin the time period is included. athologist Signature Iron 100 45 - 160 [facility] mcg/dL [facility] TIBC 278 250 - 450 [facility] mcg/dL [facility] Iron Saturation 36 20 - 50 % [facility] Specimen Anatomical Collection Method Collection Time Receive d Time (Source) Location / / Volume Laterality Blood 03/07/2022 7:55 AM 2 8:03 EDT AM EDT Resulting Agency Comment Spec In Lab Jayden Ignacio MD CHEMISTRY ORDERABLES Performing Organization Address City/[facility]/ZIP [facility] Phon e Number [address] Reticulocyte Count (03/07/2022 7:55 AM EDT) P athologist Signature Retic Ct % 1.4 0.7 - 2.6 [facility] LABOR[facility] Retic Ct Abs 0.050 0.030 - [facility] 0.120 [facility] x10(6)/[facility] LABORATORY Immature Retic% 12.3 0.0 - 15.6 [place] K % [facility] Reticulated Hgb 38.2 31.3 - [place] 40.2 pg [facility] Specimen Anatomical Collection Method Collection Time Receive d Time (Source) Location / / Volume Laterality Blood 03/07/2022 7:55 AM 2 8:03 EDT AM EDT Resulting Agency Comment Spec In Lab Jayden Ignacio MD HEMATOLOGY ORDERABLES Performing Organization Address City/[facility]/[place] [address] Uric acid (03/07/2022 7:55 AM EDT) athologist Signature Uric Acid 4.2 3.5 - 8.5 [facility] mg/dL [facility] Specimen Anatomical Collection Method Collection Time Receive d Time (Source) Location / / Volume Laterality Blood 03/07/2022 7:55 AM 2 8:03 EDT AM EDT Resulting Agency Comment Spec In Lab Lea Villavicencio MD CHEMISTRY ORDERABLES Performing Organization Address City/[facility]/[place] [address] Phosphorus (03/07/2022 7:55 AM EDT) athologist Signature Phosphorus 3.7 2.5 - 4.5 [facility] mg/dL [facility] Specimen Anatomical Collection Method Collection Time Receive d Time (Source) Location / / Volume Laterality Blood 03/07/2022 7:55 AM 2 8:03 EDT AM EDT Resulting Agency Comment Spec In Lab Lea Villavicencio MD CHEMISTRY ORDERABLES Performing Organization Address City/[facility]/[place] [address] [address] (ABNORMAL) Ferritin (03/07/2022 7:55 AM EDT) athologist Signature Ferritin 1,996 (H) 30 - 400 [place] ng/mL [facility] Comment: rerun Pediatric reference ranges not verified at [facility], interpret with caution. Reference ranges for females greater kayleigh n 50 years of age approach values for men, i.e., 30-400 ng/mL. Specimen Anatomical Collection Method Collection Time Receive d Time (Source) Location / / Volume Laterality Blood 03/07/2022 7:55 AM 2 8:03 EDT AM EDT Resulting Agency Comment Spec In Lab Jayden Ignacio MD CHEMISTRY ORDERABLES Performing Organization Address City/[facility]/ZIP Code Phon e Number [address] Albumin Level (03/07/2022 7:55 AM EDT) athologist Signature Albumin 3.7 3.2 - 5.2 [facility] g/dL [facility] Specimen Anatomical Collection Method Collection Time Receive d Time (Source) Location / / Volume Laterality Blood 03/07/2022 7:55 AM 2 8:03 EDT AM EDT Resulting Agency Comment Spec In Lab Lea Villavicencio MD CHEMISTRY ORDERABLES Performing Organization Address City/[facility]/[place] [address] (ABNORMAL) Basic Metabolic Panel (non-fasting) (03/07/2022 7:55 AM EDT) athologist Signature Glucose Lvl 186 65 - 199 [facility] mg/dL [facility] Comment: Diabetes: >=200 mg/dL plus symp toms BUN 57 (H) 10 - 20 mg/dL [facility] Creatinine 1.74 (H) 0.80 - 1.50 mg/dL [facility] Sodium 140 135 - 145 mmol/L [facility] Potassium 4.2 3.5 - 5.0 mmol/L [facility] Comment: Please note: ??Patients with WBC >100,00 0 may have falsely elevated Potassium levels. ??For accurate Potassium quantif ication in these patients send serum separator tube (gold top) for subsequent determinations. ??Contact the Clinical Chemistry Laboratory if there are any qu estions. Chloride 104 98 - 107 mmol/L [facility] CO2 26 22 - 31 mmol/L [facility] Anion Gap 10 5 - 15 mmol/L [facility] Calcium 9.4 8.5 - 10.5 mg/dL [facility] Estimated GFR 44 (L) >=60 mL/min/1.73 m?? [facility] Comment: This patient's estimated GFR was calcula manuel using the 2020 CKD-EPI equation. The estimated GFR can vary from the madi ured GFR by up to 30% in the absence of rapidly changing kidney function. Assess ment of the estimated GFR is not appropriate when creatinine concentratio ns are rapidly changing. For clinical situations in which a more precise estim ate of GFR is necessary, consider alternative methods of GFR estimation ro ch as a 24-hour urine creatinine clearance. Assignment of CKD stage 1-5 for patients with an eGFR near the transition point between stages may be based on clinical assessment of muscle mass and symptoms in addition to eGFR. Specimen Anatomical Collection Method Collection Time Receive d Time (Source) Location / / Volume Laterality Blood 03/07/2022 7:55 AM 8:03 EDT AM EDT Resulting Agency Comment Spec In Lab Lea Villavicencio MD CHEMISTRY ORDERABLES Performing Organization Address City/State/[place] [address] (ABNORMAL) Creatinine (02/05/2022)Only the most recent of2 resultswithin the time period is included. Patholo gist Method Time Signature Creatinine 1.9 (A) 0.7 - 1.3 [facility] Estimated GFR 35.98 [facility] Specimen (Source) Anatomical Location Collection Method / Collectio n Time Received Time / Laterality Volume Blood 02/05/2022 Karen Lugo APRN CHEMISTRY ORDERABLES Performing Organization Address City/State/ZIP Code Phon e Number [facility] [address] [place] [address] HOSPITAL (ABNORMAL) CRP, acute inflammation (01/22/2022) P athologist Signature CRP 0.71 (A) 0 - 0.3 [facility] Specimen (Source) Anatomical Location Collection Method / Collectio n Time Received Time / Laterality Volume Blood 01/22/2022 Richard Rodriguez MD CHEMISTRY ORDERABLES Performing Organization Address City/[facility]/ZIP Code Phon e Number [address] [place] [address] HOSPITAL (ABNORMAL) CK (01/22/2022) P athologist Signature CK, Total 1,178 (A) 39 - 308 [facility] Specimen (Source) Anatomical Location Collection Method / Collectio n Time Received Time / Laterality Volume Blood 01/22/2022 Richard Rodriguez MD CHEMISTRY ORDERABLES Performing Organization Address City/[facility]/ZIP Code Phon e Number [address] [place] [address] HOSPITAL from Last 3 Months Insurance Payer Benefit Plan / Subscriber ID Effective Dates Phone Addre ss Type Group MEDICARE MEDICARE PART A [id number] 2013-Present [phone] [facility] [id number] Advance Directives Documents on File Type Date Recorded Patient Internal Recruiter Explanati on Personal Internal Recruiter 07/16/2019 3:39 PM navya dc Latest Code Status on File Code Status Date Activated Date Inactivated Comments Full Code 07/09/2016 10:35 PM 07/13/2016 3:30 PM Does patient have capacity to make decision: Yes Full Code 03/19/2016 10:18 AM 07/09/2016 10:35 PM Does patient have capacity to make decision: Yes Full Code 11/04/2015 7:17 AM 11/05/2015 4:34 AM Does patient have capacity to make decision: Yes Full Code 08/17/2014 4:43 PM 08/19/2014 6:02 PM Order Status: Initial Order Does patient have decision making capacity? Yes, Order is based on Patients wishes. Full Code 07/08/2014 11:09 PM 07/13/2014 3:49 PM Order Status: Initial Order Does patient have decision making capacity? Yes, Order is based on Patients wishes. Care Teams Hotel Dining Room Cashier Relationship Specialty Start Date End Date Jazmine Baer MD PCP - General 11/07/10 [address] [place] [address]
--- OUTSIDE RECORDS SUMMARY | 2022-04-11 10:46 | XMS_ITS | Encounter Summary ---
:1960 Author Organization [facility] [place] [address] Care Team Providers Name Role Phone Jazmine Baer MD Primary Care Provider Encounter Details Date Type Department Care Team Description 10/05/2021 Telephone Hematology and [place]cology [place] [phone] Social History Tobacco Use Types Packs/Day Years Used Date Never Smoker Smokeless Tobacco: Never Used Alcohol Use Standard Drinks/Week Comments No 0 (1 standard drink = 0.6 oz pure alcoho l) Sex Assigned at Date Recorded Not on file documented as of this encounter Miscellaneous Notes Telephone Encounter - Jessica Santos RN - 10/05/2021 3:56 PM EDT Received lab results dated 10/02/21 via fax from [facility]. Results have been input into eDH. Latest Reference Range & Units 10/02/21 08:50 CK, Total 39 - 308 662 ! (E) !: Data is abnormal (E): External lab result Latest Reference Range & Units 10/02/21 08:50 CRP 0.0 - 0.3 1.15 ! (E) !: Data is abnormal (E): External lab result Latest Reference Range & Units 10/02/21 08:50 Magnesium 1.8 - 2.4 mg/dL 2.2 (E) (E): External lab result Note sent to Karen Lugo with lab results. documented in this encounter Plan of Treatment Upcoming Encounters Date Type Specialty Care Team Description 06/19/2022 Office Visit Rheumatology Richi Blackmon MD [facility] ER DR RHEUMATOLOGY [place], [place] [address] (Wo rk) Scheduled Procedures Name Priority Associated Diagnoses Date/Time EGD, UPPER GI ENDOSCOPY Family hx of colon cance r COLONOSCOPY, DIAGNOSTIC Family hx of colon cance r documented as of this encounter Procedures Procedure Name Priority Date/Time Associated Diagnosis Comme nts MAGNESIUM Routine 10/02/2021 8:50 AM Results f or this EDT procedure are i n the results section . documented in this encounter Results (ABNORMAL) Magnesium (10/02/2021 8:50 AM EDT) P athologist Signature Magnesium 2.2 1.8 - 2.4 EXTERNAL LAB mg/dL CK, Total 662 (A) 39 - 308 EXTERNAL LAB CRP 1.15 (A) 0.0 - 0.3 EXTERNAL LAB Specimen (Source) Anatomical Collection Method Collection Time Re ceived Time Location / / Volume Laterality Blood 10/02/2021 8:50 AM EDT Historical Provider CHEMISTRY ORDERABLES Performing Organization Address City/State/ZIP Code Phon e Number EXTERNAL FACILITY EXTERNAL LAB documented in this encounter Visit Diagnoses Not on filedocumented in this encounter Care Teams Call Center Trainer Relationship Specialty Start Date End Date Jazmine Baer MD PCP - General 11/07/10 [address] [place] [address] documented as of this encounter
--- OUTSIDE RECORDS SUMMARY | 2022-04-11 10:46 | XMS_ITS | Encounter Summary ---
:1960 Author Organization [facility] [place] [address] Care Team Providers Name Role Phone Jazmine Baer MD Primary Care Provider Encounter Details Date Type Department Care Team Description 02/06/2022 External Results [facility] [place] [address] Social History Tobacco Use Types Packs/Day Years Used Date Never Smoker Smokeless Tobacco: Never Used Alcohol Use Standard Drinks/Week Comments No 0 (1 standard drink = 0.6 oz pure alcoho l) Sex Assigned at Date Recorded Not on file documented as of this encounter Plan of Treatment Upcoming Encounters Date Type Specialty Care Team Description 06/19/2022 Office Visit Rheumatology Richi Blackmon MD [facility] DR RHEUMATOLOGY [place], [place] [address] (Wo rk) Scheduled Procedures Name Priority Associated Diagnoses Date/Time EGD, UPPER GI ENDOSCOPY Family hx of colon cance r COLONOSCOPY, DIAGNOSTIC Family hx of colon cance r documented as of this encounter Procedures Procedure Name Priority Date/Time Associated Diagnosis Comme nts CREATININE Routine 02/05/2022 Results for thi s procedure are i n the results section . IRON AND TIBC Routine 02/05/2022 Results for th is procedure are i n the results section . CBC (WITH DIFF) Routine 02/05/2022 Results for this procedure are i n the results section . CRP, ACUTE INFLAMMATION Routine 01/22/2022 Resu lts for this procedure are i n the results section . CREATININE Routine 01/22/2022 Results for thi s procedure are i n the results section . CBC (WITH DIFF) Routine 01/22/2022 Results for this procedure are i n the results section . CK Routine 01/22/2022 Results for thi s procedure are i n the results section . CRP, ACUTE INFLAMMATION Routine 12/27/2021 Resu lts for this procedure are i n the results section . CREATININE Routine 12/27/2021 Results for thi s procedure are i n the results section . CBC (WITH DIFF) Routine 12/27/2021 Results for this procedure are i n the results section . MAGNESIUM Routine 12/27/2021 Results for thi s procedure are i n the results section . CK Routine 12/27/2021 Results for thi s procedure are i n the results section . IRON AND TIBC Routine 12/12/2021 Results for th is procedure are i n the results section . documented in this encounter Results (ABNORMAL) CBC (with Diff) (02/05/2022) [facility] Method Time Signature WBC 4.89 4.4 - [facility] 10.8 [facility] RBC 3.47 (A) 4.36 - [facility] 5.78 [facility] Hemoglobin 11.3 (A) 13.5 - [facility] 17.5 [facility] Hematocrit 35.9 (A) 40.0 - [facility] 50.0 [facility] MCV 104.0 (A) 80.0 - [facility] 95.0 [facility] MCH 32.6 27.0 - [facility] 33.0 [facility] MCHC 31.5 (A) 32.0 - [facility] 36.0 [facility] RDWCV 14.7 (A) 11.8 - [facility] 14.1 [facility] Platelets 51 (A) 130 - 400 [facility] MPV 12.5 (A) 8 - 11 [facility] Neutrophils % 72.0 [facility] Lymphocytes % 10.0 [facility] Monocytes % 9.0 [facility] Eosinophil % 7.6 [facility] Basophils % 1.2 [facility] Immature Gran % 0.2 [facility] Neutr Abs (ANC) 3.52 1.2 - 6.7 [facility] Lymphocyte Abs 0.49 (A) 1.2 - 3.4 [facility] Monocyte Abs 0.44 0.1 - 0.8 [facility] Eosinophil Abs 0.37 0 - 0.7 [facility] Basophil Abs 0.06 0 - 0.2 [facility] Specimen (Source) Anatomical Location Collection Method / Collectio n Time Received Time / Laterality Volume Blood 02/05/2022 Karen Lugo PHOTOGRAPHIC LABORATORY TECHNICIAN HEMATOLOGY ORDERABLES Performing Organization Address City/[facility]/ZIP Code Phon e Number [address] [place] [address] HOSPITAL (ABNORMAL) Creatinine (02/05/2022) Patholo gist Method Time Signature Creatinine 1.9 (A) 0.7 - 1.3 [facility] Estimated GFR 35.98 [facility] Specimen (Source) Anatomical Location Collection Method / Collectio n Time Received Time / Laterality Volume Blood 02/05/2022 Karen Lugo PHOTOGRAPHIC LABORATORY TECHNICIAN CHEMISTRY ORDERABLES Performing Organization Address City/[facility] Phon e Number [address] [place] [address] HOSPITAL Iron and TIBC (02/05/2022) P athologist Signature Iron 92 65 - 175 [facility] TIBC 304 250 - 450 [facility] Transferrin 30 20 - 55 [facility] Specimen (Source) Anatomical Location Collection Method / Collectio n Time Received Time / Laterality Volume Blood 02/05/2022 Karen Lugo PHOTOGRAPHIC LABORATORY TECHNICIAN CHEMISTRY ORDERABLES Performing Organization Address City/[facility] Phon e Number [address] [place] [address] HOSPITAL (ABNORMAL) CBC (with Diff) (01/22/2022) Patholo gist Method Time Signature WBC 5.04 4.4 - [facility] 10.8 [facility] RBC 3.62 (A) 4.36 - [facility] 5.78 [facility] Hemoglobin 12.1 (A) 13.5 - [facility] 17.5 [facility] Hematocrit 37.2 (A) 40.0 - [facility] 50.0 [facility] MCV 103.0 (A) 80.0 - [facility] 95.0 [facility] MCH 33.4 (A) 27.0 - [facility] 33.0 [facility] MCHC 32.5 32.0 - [facility] 36.0 [facility] RDWCV 14.9 (A) 11.8 - [facility] 14.1 [facility] Platelets 77 (A) 130 - 400 [facility] MPV 12 (A) 8 - 11 [facility] Neutrophils % 62.5 [facility] Lymphocytes % 11.5 [facility] Monocytes % 10.5 [facility] Eosinophil % 13.9 [facility] Basophils % 1.4 [facility] Immature Gran % 0.2 [facility] Neutr Abs (ANC) 3.15 1.2 - 6.7 [facility] Lymphocyte Abs 0.58 (A) 1.2 - 3.4 [facility] Monocyte Abs 0.53 0.1 - 0.8 [facility] Eosinophil Abs 0.70 0 - 0.7 [facility] Basophil Abs 0.07 0 - 0.2 [facility] Specimen (Source) Anatomical Location Collection Method / Collectio n Time Received Time / Laterality Volume Blood 01/22/2022 Richard Rodriguez MD HEMATOLOGY ORDERABLES Performing Organization Address City/[facility] Phon e Number [address] [place] [address] HOSPITAL (ABNORMAL) Creatinine (01/22/2022) Patholo gist Method Time Signature Creatinine 1.8 (A) 0.7 - 1.3 [facility] Estimated GFR 38.30 [facility] Specimen (Source) Anatomical Location Collection Method / Collectio n Time Received Time / Laterality Volume Blood 01/22/2022 Richard Rodriguez MD CHEMISTRY ORDERABLES Performing Organization Address City/[facility] Phon e Number [address] [place] [address] HOSPITAL (ABNORMAL) CK (01/22/2022) P athologist Signature CK, Total 1,178 (A) 39 - 308 [facility] Specimen (Source) Anatomical Location Collection Method / Collectio n Time Received Time / Laterality Volume Blood 01/22/2022 Richard Rodriguez MD CHEMISTRY ORDERABLES Performing Organization Address City/[facility] Phon e Number [address] [place] [address] HOSPITAL (ABNORMAL) CRP, acute inflammation (01/22/2022) P athologist Signature CRP 0.71 (A) 0 - 0.3 [facility] Specimen (Source) Anatomical Location Collection Method / Collectio n Time Received Time / Laterality Volume Blood 01/22/2022 Richard Rodriguez MD CHEMISTRY ORDERABLES Performing Organization Address City/[facility] Phon e Number [address] [place] [address] HOSPITAL (ABNORMAL) CBC (with Diff) (12/27/2021) Patholo gist Method Time Signature WBC 5.49 4.4 - [facility] 10.8 [facility] RBC 3.37 (A) 4.36 - [facility] 5.78 [facility] Hemoglobin 11.4 (A) 13.5 - [facility] 17.5 [facility] Hematocrit 34.7 (A) 40.0 - [facility] 50.0 [facility] MCV 103.0 (A) 80.0 - [facility] 95.0 [facility] MCH 33.8 (A) 27.0 - [facility] 33.0 [facility] MCHC 32.9 32.0 - [facility] 36.0 [facility] RDWCV 15.3 (A) 11.8 - [facility] 14.1 [facility] Platelets 63 (A) 130 - 400 [facility] MPV 10.8 8 - 11 [facility] Neutrophils % 74.8 [facility] Lymphocytes % 7.7 [facility] Monocytes % 9.5 [facility] Eosinophil % 6.7 [facility] Basophils % 0.9 [facility] Immature Gran % 0.4 [facility] Neutr Abs (ANC) 4.11 1.2 - 6.7 [facility] Lymphocyte Abs 0.42 (A) 1.2 - 3.4 [facility] Monocyte Abs 0.52 0.1 - 0.8 [facility] Eosinophil Abs 0.37 0 - 0.7 [facility] Basophil Abs 0.05 0 - 0.2 [facility] Specimen (Source) Anatomical Location Collection Method / Collectio n Time Received Time / Laterality Volume Blood 12/27/2021 Jazmine Baer MD HEMATOLOGY ORDERABLES Performing Organization Address City/[facility] Phon e Number [address] [place] [address] HOSPITAL (ABNORMAL) Creatinine (12/27/2021) Patholo gist Method Time Signature Creatinine 2.1 (A) 0.7 - 1.3 [facility] Estimated GFR 32.06 [facility] Specimen (Source) Anatomical Location Collection Method / Collectio n Time Received Time / Laterality Volume Blood 12/27/2021 Jazmine Baer MD CHEMISTRY ORDERABLES Performing Organization Address City/[facility] Phon e Number [address] [place] [address] HOSPITAL (ABNORMAL) CK (12/27/2021) P athologist Signature CK, Total 1,394 (A) 39 - 308 [facility] Specimen (Source) Anatomical Location Collection Method / Collectio n Time Received Time / Laterality Volume Blood 12/27/2021 Jazmine Baer MD CHEMISTRY ORDERABLES Performing Organization Address City/[facility] Phon e Number [address] [place] [id number] HOSPITAL (ABNORMAL) CRP, acute inflammation (12/27/2021) P athologist Signature CRP 2.11 (A) 0 - 0.3 [facility] Specimen (Source) Anatomical Location Collection Method / Collectio n Time Received Time / Laterality Volume Blood 12/27/2021 Jazmine Baer MD CHEMISTRY ORDERABLES Performing Organization Address City/[facility]/ZIP [facility] Phon e Number [address] [place], [place] [id number] HOSPITAL Magnesium (12/27/2021) P athologist Signature Magnesium 2.2 1.8 - 2.4 [facility] mg/dL [facility] Specimen (Source) Anatomical Location Collection Method / Collectio n Time Received Time / Laterality Volume Blood 12/27/2021 Jazmine Baer MD CHEMISTRY ORDERABLES Performing Organization Address City/[facility]/ZIP [facility] Phon e Number [address] [place], [place] [id number] HOSPITAL (ABNORMAL) Iron and TIBC (12/12/2021) athologist Signature Iron 62 (A) 65 - 175 [facility] TIBC 282 250 - 450 [facility] Transferrin 22 20 - 55 [facility] Specimen (Source) Anatomical Location Collection Method / Collectio n Time Received Time / Laterality Volume Blood 12/12/2021 Karen Lugo PHOTOGRAPHIC LABORATORY TECHNICIAN CHEMISTRY ORDERABLES Performing Organization Address City/[facility] Phon e Number [address] [place], [place] [address] HOSPITAL documented in this encounter Visit Diagnoses Not on filedocumented in this encounter Care Teams Oncology Admin Relationship Specialty Start Date End Date Jazmine Baer MD PCP - General 11/07/10 [address] [place] [address] documented as of this encounter
--- OUTSIDE RECORDS SUMMARY | 2022-04-11 10:46 | XMS_ITS | Encounter Summary ---
:1960 Author Organization [facility] [place] [address] Care Team Providers Name Role Phone Jazmine Baer MD Primary Care Provider Encounter Details Date Type Department Care Team Description 03/15/2022 Office Visit Rheumatology at [facility] Inserra, Long-term current use of int ravenous immunoglobulin (IVIG); [facility] Jayden Echeverria MD terminal clerk current use of systemic steroi ds; [facility] Other specified disorders of bone density and structure, other site ; [place], [place] Gout, unspecified cause, unspecified chr onicity, unspecified site; [id number] RHEUMATOLOGY DEPT HMG-CoA myositis; [phone] [place], [place] [address] Chronic kidney disease, unspecified CKD stage ; [phone] (Wo rk) High risk medication use Social History Tobacco Use Types Packs/Day Years [...] Mass Index 39.99 03/15/2022 10:45 AM EDT documented in this encounter Progress Notes Jayden Blackmon MD - 03/15/2022 11:00 AM EDT Rheumatology Outpatient Follow Up Note PCP: Jazmine Baer MD Bucky Acevedo is a 61 y.o. 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 Rheum History: HMG-CoA reductase myopathy: ?? Initially seen December 2015 by Akash Prieto MD, for evaluation and treatment of myopathy. ?? 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 + HMG-COA reductase Ab; CK was initially in the 10-11,000 range but below 100 with IVIG. ?? Treatment: IVIG started in 2010. Currently receives 1 g/kg with 2 infusions per month at [facility] on 2 successive days. Previously received Solu-medrol on the first day (intially 1 gram, then decreased to 500 mg September 2019; then decreased to 250 mg March and April 2020 infusions; then decreased to125 mg starting with 05/13/2020 infusion, 60 mg with 10/2020 infusion, 30 mg with 11/2020 infusion, then stopped). SoluMedrol taper initiated due to affect on diabetes control and weight. ?? He has been doing well at baseline until 2-3 days before infusions with mild symptoms including some muscle weakness, eg when climbing a flight of stairs he had to pull himself up by the railing if he has done too much activity. ?? Did not tolerate decreased IVIG dose (had increased muscle weakness, reduced muscle tone) with the last attempt in about 2017 by patient report. ?? Failed azathioprine, mycophenolate, rituximab, and methotrexate (intolerant of MTX due to rash). ?? Re-initiated Solu-Medrol 500 mg daily with the first day of IVIG infusions on 12/12/21 given worsening disease activity ?? Gout: ?? Started in the great toes MTPs bilaterally several years ago. Then when he was in the hospital a couple 3 years ago at [facility] he had his knee drained and says it was related to gout. He has not had follow up for the knee since it was drained. ?? No flares on allopurinol 400 mg. Has not needed to take any colchicine. Uric acid level 4.5 at [facility] 08/2020. Interval History: -last visit: 12/06/21 -most recent labs 03/07/22: uric acid 4.2, BMP notable for creatinine 1.74, CBC stable although Hb 12.0 and platelets 62, ferritin 1995, iron panel normal, urine protein/creatinine <0.3 -most recent CK and CRP 367 and 0.83 mg/dl, respectively, on 02/19/22 -Seen by gastroenterology on 01/31/2022 at which time plan was to set up a follow-up surveillance biopsy session given history of Durand's -Seen by nephrology on 03/07/2022 and deemed to be doing well from renal standpoint -feeling much better after he has received doses of 500 mg Solu-Medrol during first day of IVIG infusions each of last 3 months -denies adverse effects from steroids -feels his strength is coming back -his PCP has been closely following his blood sugars (and has increased his insulin as well); stateshis blood sugars have been under control ROS (positives in bold): Gen: no fevers, no chills, no night sweats Pulm: no SOB CV: no CP Abd: no abd pain, no nausea, no vomiting, no diarrhea MSK: see HPI Meds and Allergies: Reviewed in eDH Physical exam: BP 162/60 Pulse 62 Temp 36.4 ??C (97.5 ??F) (Temporal) Resp 22 Ht 175.3 cm (5' 9) Wt 122.8 kg (270 lb 12.8 oz) SpO2 100% BMI 39.99 kg/m?? Gen: well appearing, alert and oriented x 3, nad, arrives with single point cane HEENT: NCAT, EOMI grossly, normal sclerae Heart: normal rate, regular rhythm Lungs: normal respiratory effort, CTAB Abd: nondistended Skin: warm and dry, no rheumatologic rashes Nails: no nail pitting Joints: Shoulders: FROM, non-tender to palpation Elbows:FROM Wrists: FROM, no swelling, non-tender Hands: No synovitis Knees: FROM, no effusion Ankles: FROM, no effusion Feet: no MTP compression tenderness Neuro: strength appears to be full and symmetric throughout upper extremities and lower extremities with notable exception that he is unable to rise from seated position without the use of his hands; on further isolation of hip flexor strength testing, he is not able to complete full hip flexion against only gravity on either side (testing with gravity eliminated not done) Labs/Studies: Reviewed. Current Immunizations Name Date HEP B 08/10/2014 , 01/27/2014 INFLUENZA 03/15/2022 , 03/31/2019 , 04/29/2015 , 03/10/2014 , 03/10/2009 , 04/23/2006 Pneumo (PPSV-23) 08/13/2014 Assessment/Plan: 1. HMG-CoA reductase myopathy Last visit 12/06/21 at which time Solu-Medrol 500 mg was re-added to the first day of his IVIG infusions given worsening disease activity (had not received a dose since November 2020 as he was tapered off then). This has resulted in a significant improvement in his labs (CK + CRP) and his symptoms. Also appears to be tolerating this without adverse effects. Due for his next doses of IVIG on 03/19/22 and 03/20/22. -continue monthly 1 g/kg IVIG infusions (2 doses on consecutive days) -continue 500 mg Solu-Medrol with the first day of his monthly IVIG infusions -will hopefully be able to taper dose of Solu-Medrol once he is willing but believe it is reasonableto keep dose the same for now given how dramatically his symptoms and labs changed; will plan to reduce dose with more urgency if DXA shows evidence of worsening BMD -labs with each set of infusions: Cr, CK, CRP 2. group home current use of systemic steroids -have ordered DXA and sent this to [facility] per his request -he takes (the [employer] generic version of) Centrum Silver, which contains 1000 units daily -start calcium carbonate 1000 mg daily 3. Health maintenance -flu shot administered in clinic today -plans to get COVID bivalent/omicron booster next time he visits his PCP -also recommended that he get Prevnar 20, states he can get this at PCP's office -has completed Shingrix series 4. Gout Well-controlled on allopurinol 400 mg daily. Uric acid 4.2 on 03/07/22. -continue allopurinol 400 mg daily Follow up in 3 months Patient was discussed with Dr. José Miguel Blackmon MD Rheumatology Fellow Pager: [phone] Jayden Valdez MD - 03/15/2022 11:00 AM EDT Attending Addendum The patient was seen by Jayden Blackmon MD, rheumatology fellow II. We reviewed the patient's interval history and exam, and Dr. Blackmon's management plan. I did not directly meet with the patient. I agree with Dr. Blackmon's assessment and plan. Jayden Valdez MD Staff Management Associate documented in this encounter Plan of Treatment Upcoming Encounters Date Type Specialty Care Team Description 06/19/2022 Office Visit Rheumatology Richi Blackmon MD [facility] DR RHEUMATOLOGY [place], [place] [address] (Wo rk) Scheduled Orders Name Type Priority Associated Diagnoses Order S chedule DXA Central Spine, Imaging Routine Long-term current use of Expected: 03/22/2022 Hip, and/or Whole intravenous immunoglobu trista (Approximate), Body (Generic) (IVIG) Expires: 09/21/2022 Other specified disorders of bone density and structure, other site Scheduled Procedures Name Priority Associated Diagnoses Date/Time EGD, UPPER GI ENDOSCOPY Family hx of colon cance r COLONOSCOPY, DIAGNOSTIC Family hx of colon cance r documented as of this encounter Visit Diagnoses Diagnosis Long-term current use of intravenous imm unoglobulin (IVIG) terminal clerk current use of systemic steroi ds Encounter for long-term (current) use of steroids Other specified disorders of bone densit y and structure, other site Gout, unspecified cause, unspecified chr onicity, unspecified site HMG-CoA myositis Mylagia and myositis, unspecified Chronic kidney disease, unspecified CKD stage High risk medication use Encounter for long-term (current) use of other medications documented in this encounter Care Teams Gang Plank Workman Relationship Specialty Start Date End Date Jazmine Baer MD PCP - General 11/07/10 [address] [place] [address] documented as of this encounter
--- OUTSIDE RECORDS SUMMARY | 2022-04-11 10:46 | XMS_ITS | Encounter Summary ---
:1960 Author Organization [facility] [place] [address] Care Team Providers Name Role Phone Jazmine Baer MD Primary Care Provider Encounter Details Date Type Department Care Team Description 12/06/2021 Office Visit Rheumatology at [facility] Jayden Blackmon HMG-CoA myositis; [facility] MD Juwan High risk medication use; Drive [facility] Gout, unspecified cause, uns pecified chronicity, [place] [address] RHEUMATOLOGY DEPT [phone] [place], [place] [address] (Wo rk) Social History Tobacco Use Types Packs/Day Years Used Date Never Smoker Smokeless Tobacco: Never Used Alcohol Use Standard Drinks/Week Comments No 0 (1 standard drink = 0.6 oz pure alcoho l) Sex Assigned at Date Recorded Not on file documented as of this encounter Last Filed Vital Signs Vital Sign Reading Time Taken Comments Blood Pressure 155/64 12/06/2021 1:19 PM EDT Pulse 69 12/06/2021 1:19 PM EDT Temperature 36.4 ??C (97.5 ??F) 12/06/2021 1:19 PM EDT Respiratory Rate 24 12/06/2021 1:19 PM EDT Oxygen Saturation 99% 12/06/2021 1:19 PM EDT Inhaled Oxygen Concentration - - Weight 123.1 kg (271 lb 4.8 oz) 12/06/2021 1:19 PM EDT Height 175.3 cm (5' 9) 12/06/2021 1:19 PM EDT Body Mass Index 40.06 12/06/2021 1:19 PM EDT documented in this encounter Progress Notes Jayden Blackmon MD - 12/06/2021 1:45 PM EDT Rheumatology Outpatient Follow Up Note PCP: [...] g/kg with 2 infusions per month at [facility] on 2 successive days. Previously received Solu-medrol [...] (intolerant of MTX due to rash). ?? Gout: ?? Started in the great toes MTPs bilaterally several years ago. Then when he was in the hospital a couple 3 years ago at [facility] he had his knee drained and says it was related to gout. He has not had follow up for the knee since it was drained. ?? No flares on allopurinol 400 mg. Has not needed to take any colchicine. Uric acid level 4.5 at [facility] 08/2020. Interval History: -last visit: 08/22/21 -most recent labs 11/27/21 (from [facility]): Cr 2.1, CK 1925, CRP 1.49 -feeling weaker and legs are feeling heavy -continues to be without muscle pain but has noticed some tingling in the tips of both 5th fingers -states that he remembers MTX definitely caused a rash after the first dose that he took it -he does not remember being on AZA and therefore does not know why it was discontinued -reports that he was never on two DMARDs at once -denies dysphagia and dyspnea at rest (will get winded if he has to exert himself greatly but attributes this to his muscle weakness) ROS (positives in bold): Gen: no fevers, no chills, no night sweats Pulm: no SOB CV: no CP Abd: no abd pain, no nausea, no vomiting, no diarrhea MSK: see HPI Meds and Allergies: Reviewed in eDH Physical exam: BP 155/64 (BP Location (NBP): Left arm, Patient Position: Sitting, BP Cuff Sizes: Large Adult (32-43cm)) Pulse 69 Temp 36.4 ??C (97.5 ??F) (Temporal) Resp 24 Ht 175.3 cm (5' 9) Wt 123.1 kg (271 lb 4.8 oz) SpO2 99% BMI 40.06 kg/m?? Gen: well appearing, alert and oriented [...] Date HEP B 08/10/2014 , 01/27/2014 INFLUENZA 03/31/2019 , 04/29/2015 , 03/10/2014 , 03/10/2009 , 04/23/2006 Pneumo (PPSV-23) 08/13/2014 Assessment/Plan: 1. HMG-CoA reductase myopathy Worsened since last visit from both a clinical and laboratory standpoint. In trying to find a specific reason for this, it was noted that he was receiving doses of Solu-Medrol with the first day of hismonthly IVIG infusions up until November 2020 before this was stopped. -will therefore request that patient receive a dose of 500 mg Solu-Medrol with upcoming iron infusion on 12/12/21 -continue monthly 1 g/kg IVIG infusions (2 doses on consecutive days) -will have him again receive 500 mg Solu-Medrol with the first day of his monthly IVIG infusions -will hopefully be able to taper dose of Solu-Medrol once his symptoms start to improve and will also plan to introduce steroid-sparing agent such as AZA or leflunomide at that time -labs with each set of infusions: Cr, CK, CRP -labs today: TSH, T4, Cr, CK, and CRP 2. Gout Well-controlled on allopurinol 400 mg daily. Uric acid 4.4. on 05/02/21. -continue allopurinol 400 mg daily Follow up in 3 months Patient was seen and discussed with Dr. José Miguel Blackmon MD Rheumatology Fellow Pager: [phone] Jayden Valdez MD - 12/06/2021 1:45 PM EDT ATTENDING ADDENDUM The patient's history was reviewed, and I interviewed and examined the patient with Dr. Jayden Blackmon. I agree with his summary, findings, and plan. We'll add back SoluMedrol to his IVIG and consider an alternative agent to add to the IVIG before attempting to get him off steroids again. Jayden Valdez MD Staff Funeral Limousine Driver documented in this encounter Plan of Treatment Upcoming Encounters Date Type Specialty Care Team Description 06/19/2022 Office Visit Rheumatology Richi Blackmon MD [facility] ER RHEUMATOLOGY [place] [address] (Wo rk) Scheduled Procedures Name Priority Associated Diagnoses Date/Time EGD, UPPER GI ENDOSCOPY Family hx of colon cance r COLONOSCOPY, DIAGNOSTIC Family hx of colon cance r documented as of this encounter Results (ABNORMAL) CRP, acute inflammation (12/06/2021 3:12 PM EDT) athologist Signature CRP 9.3 (H) <=4.9 mg/L [facility] Specimen Anatomical Collection Method Collection Time Receive d Time (Source) Location / / Volume Laterality Blood 12/06/2021 3:12 PM 2 3:31 EDT PM EDT Resulting Agency Comment Spec In Lab Jayden Valdez MD CHEMISTRY ORDERABLES Performing Organization Address City/[facility]/[place] [address] (ABNORMAL) CK (12/06/2021 3:12 PM EDT) athologist Signature CK, Total 1,453 (H) 0 - 200 [facility] unit/L [facility] Specimen Anatomical Collection Method Collection Time Receive d Time (Source) Location / / Volume Laterality Blood 12/06/2021 3:12 PM 2 3:31 EDT PM EDT Resulting Agency Comment Spec In Lab Jayden Valdez MD CHEMISTRY ORDERABLES Performing Organization Address City/[facility]/[place] [address] (ABNORMAL) Creatinine (12/06/2021 3:12 PM EDT) Analysis Performed At Patho logist Time Signature Creatinine 1.80 (H) 0.80 [facility] 1.[facility] mg/dL [facility] Estimated GFR 42 (L) >=60 [facility] mL/min/1.[address]?? [facility] Comment: This patient's estimated GFR [...] (Source) Location / / Volume Laterality Blood 12/06/2021 3:12 PM 2 3:31 EDT PM EDT Resulting Agency Comment Spec In Lab Jayden Valdez MD CHEMISTRY ORDERABLES Performing Organization Address City/[facility]/ZIP Code Phon e Number [address] T4, free (12/06/2021 3:12 PM EDT) athologist Signature Free T4 1.07 0.93 - 1.70 [facility] ng/dL [facility] Comment: Reference Interval (ng/dL): Females: ??First Trimester: 0.97-1.68 ??Second Trimester: 0.77-1.51 ??Third Trimester: 0.77-1.49 Specimen Anatomical Collection Method Collection Time Receive d Time (Source) Location / / Volume Laterality Blood 12/06/2021 3:12 PM 2 3:31 EDT PM EDT Resulting Agency Comment Spec In Lab Jayden Valdez MD CHEMISTRY ORDERABLES Performing Organization Address City/[facility]/[place]IP [facility] [place] Number [address] TSH (12/06/2021 3:12 PM EDT) athologist Signature TSH 2.48 0.27 - 4.20 DUGLAS RYANCK mcIU/mL [facility] Comment: Reference Interval (mcIU/mL): Females: ??First Trimester: 0.23-3.88 ??Second Trimester: 0.22-3.90 ??Third Trimester: 0.44-4.66 Specimen Anatomical Collection Method Collection Time Receive d Time (Source) Location / / Volume Laterality Blood 12/06/2021 3:12 PM 2 3:31 EDT PM EDT Resulting Agency Comment Spec In Lab Jayden Valdez MD CHEMISTRY ORDERABLES Performing Organization Address City/State/[place] [address] documented in this encounter Visit Diagnoses Diagnosis HMG-CoA myositis Mylagia and myositis, unspecified High risk medication use Encounter for long-term (current) use of other medications Gout, unspecified cause, unspecified chr onicity, unspecified site documented in this encounter Care Teams Engineering Assistant Relationship Specialty Start Date End Date Jazmine Baer MD PCP - General 11/07/10 [address] [place] [address] documented as of this encounter
--- OUTSIDE RECORDS SUMMARY | 2022-04-11 10:46 | XMS_ITS | Encounter Summary ---
:1960 Author Organization [facility] [place] [address] Care Team Providers Name Role Phone Jazmine Baer MD Primary Care Provider Encounter Details Date Type Department Care Team Description 03/14/2022 Telephone Rheumatology at [facility] Violet Neumann, [facility] [place] [address] Social History Tobacco Use Types Packs/Day Years Used Date Never Smoker Smokeless Tobacco: Never Used Alcohol Use Standard Drinks/Week Comments No 0 (1 standard drink = 0.6 oz pure alcoho l) Sex Assigned at Date Recorded Not on file documented as of this encounter Miscellaneous Notes Telephone Encounter - Violet Neumann RMA - 03/14/2022 11:54 AM EDT Called patient for pre-charting, no answer. JOAN DIEGO documented in this encounter Plan of Treatment Upcoming Encounters Date Type Specialty Care Team Description 06/19/2022 Office Visit Rheumatology Richi Blackmon MD [facility] ER RHEUMATOLOGY [place], [place] [address] (Wo rk) Scheduled Procedures Name Priority Associated Diagnoses Date/Time EGD, UPPER GI ENDOSCOPY Family hx of colon cance r COLONOSCOPY, DIAGNOSTIC Family hx of colon cance r documented as of this encounter Visit Diagnoses Not on filedocumented in this encounter Care Teams Tank Farm Gauger Relationship Specialty Start Date End Date Jazmine Baer MD PCP - General 11/07/10 [address] [place] [address] documented as of this encounter
--- OUTSIDE RECORDS SUMMARY | 2022-04-11 10:46 | XMS_ITS | Encounter Summary ---
:1960 Author Organization [facility] [address] Care Team Providers Name Role Phone Jazmine Baer MD Primary Care Provider Encounter Details Date Type Department Care Team Description 12/25/2021 Telephone Gastroenterology at [facility] [place] [address] Social History Tobacco Use Types Packs/Day Years Used Date Never Smoker Smokeless Tobacco: Never Used Alcohol Use Standard Drinks/Week Comments No 0 (1 standard drink = 0.6 oz pure alcoho l) Sex Assigned at Date Recorded Not on file documented as of this encounter Miscellaneous Notes Telephone Encounter - Kerline Lala - 12/25/2021 4:39 PM EDT Left detailed message informing patient that his appointment with Dr Montez on 01/31/22 has been changed to 830 instead of 9am. The patient was asked to contact the office to confirm he received the information. documented in this encounter Plan of Treatment Upcoming Encounters Date Type Specialty Care Team Description 06/19/2022 Office Visit Rheumatology Richi Blackmon MD [facility] RHEUMATOLOGY [place], [place] [address] (Wo rk) Scheduled Procedures Name Priority Associated Diagnoses Date/Time EGD, UPPER GI ENDOSCOPY Family hx of colon cance r COLONOSCOPY, DIAGNOSTIC Family hx of colon cance r documented as of this encounter Visit Diagnoses Not on filedocumented in this encounter Care Teams Chief Engineer Research Relationship Specialty Start Date End Date Jazmine Baer MD PCP - General 11/07/10 [address] [place] [address] documented as of this encounter
--- OUTSIDE RECORDS SUMMARY | 2022-04-11 10:46 | XMS_ITS | Encounter Summary ---
:1960 Author Organization [facility] [place] [address] Care Team Providers Name Role Phone Jazmine Baer MD Primary Care Provider Encounter Details Date Type Department Care Team Description 03/07/2022 Laboratory Appointment Lab 3L [facility] Stage 3b chronic kidney disease; [facility] Bicytopenia; [facility] Iron defi ciency anemia, unspecified iron deficiency anemia type; Drive Anemia in stage 3a [place] [id number] Social History Tobacco Use Types Packs/Day Years Used Date Never Smoker Smokeless Tobacco: Never Used Alcohol Use Standard Drinks/Week Comments No 0 (1 standard drink = 0.6 oz pure alcoho l) Sex Assigned at Date Recorded Not on file documented as of this encounter Plan of Treatment Upcoming Encounters Date Type Specialty Care Team Description 06/19/2022 Office Visit Rheumatology Richi Blackmon MD [facility] DR RHEUMATOLOGY [place], [place] [address] (Wo rk) Scheduled Procedures Name Priority Associated Diagnoses Date/Time EGD, UPPER GI ENDOSCOPY Family hx of colon cance r COLONOSCOPY, DIAGNOSTIC Family hx of colon cance r documented as of this encounter Procedures Procedure Name Priority Date/Time Associated Diagnosis Comme nts HC CREATININE - NON Routine 03/07/2022 8:06 [...] Stage 3b chronic DIFF EDT kidney disease HC URIC ACID, SERUM Routine 03/07/2022 7:55 AM Stage 3b chroni c Results for this EDT kidney disease procedure are in the results section. HC PHOSPHORUS, SERUM Routine 03/07/2022 7:55 AM Stage 3b chron ic Results for this EDT kidney disease procedure are in the results section. HC FERRITIN, SERUM Routine 03/07/2022 7:55 AM Bicytopeni a Results for this EDT Iron deficiency procedure ar e in anemia, unspecified the resu lts iron deficiency section. anemia type Anemia in stage 3a chronic kidney disease HC ALBUMIN, SERUM Routine 03/07/2022 7:55 AM Stage 3b chronic Results for this EDT kidney disease procedure are in the results section. BASIC METABOLIC PANEL Routine 03/07/2022 7:55 AM Stage 3b prevention rn idalmis Results for this (NON-FASTING) EDT kidney disease procedure ar e in the results section. documented in this encounter Results Protein/Creatinine Ratio, urine (03/07/2022 8:06 AM EDT) P athologist Signature U Creatinine 18 mg/dL [facility] U Protein Ran <6 0 - 12 [facility] mg/dL [facility] Prot/Cre Ratio <0.3 ratio [facility] Specimen Anatomical Collection Method Collection Time Receive d Time (Source) Location / / Volume Laterality Urine 03/07/2022 8:06 AM 2 8:30 EDT AM EDT Resulting Agency Comment Spec In Lab Lea Villavicencio MD URINE ORDERABLES Performing Organization Address City/State/[place] [address] (ABNORMAL) Differential, Automated (03/07/2022 7:55 AM EDT) [facility] Method Time Signature Neutrophils % 68.4 % [facility] Neutr Abs (ANC) 3.26 1.70 - [facility] 6.10 [facility] x10(3)/[facility] LABORATORY Lymphocytes % 12.2 % [facility] Lymphocytes Abs 0.6 (L) 0.9 - 3.2 [facility] x10(3)/[facility] LABORATORY Monocytes % 7.8 % [facility] Monocyte Abs 0.4 0.3 - 0.9 [facility] x10(3)/[facility] LABORATORY Eosinophils % 9.7 % [facility] Eosinophils Abs 0.5 (H) 0.0 - 0.4 [facility] x10(3)/[facility] LABORATORY Basophils % 1.7 % [facility] Basophils Abs 0.1 0.0 - 0.1 [facility] x10(3)/[facility] LABORATORY Immature Gran % 0.20 % [facility] Comment: Immature granulocytes(IG's)percentage an d absolute count will include metamyelocytes, myelocytes, and promyelo cytes. Blood smears from CBCs yielding IG's will be scanned manually for concor dance. If this scan disagrees with the automated IG or if promyelocytes are not ed, a manual differential will be performed. Tamara Gran Abs 0.01 0.00 - 0.04 x10(3)/[facility] Y [facility] LABORATORY Specimen Anatomical Collection Method Collection Time Receive d Time (Source) Location / / Volume Laterality Blood 03/07/2022 7:55 AM 2 8:03 EDT AM EDT Resulting Agency Comment Spec In Lab Lea Villavicencio MD HEMATOLOGY ORDERABLES Performing Organization Address City/[facility]/[place] [address] (ABNORMAL) Hemogram (03/07/2022 7:55 AM EDT) [facility] Method Time Signature WBC 4.8 4.0 - 9.5 [facility] x[facility](3[facility] LABORATORY RBC 3.61 (L) 4.58 - [facility] 5.54 [facility] x10(6)/[facility] LABORATORY Hemoglobin 12.0 (L) 13.7 - [facility] 16.5 g/dL [facility] Hematocrit 36.3 (L) 40.5 - [facility] 48.5 % [facility] MCV 100.6 (H) 82.9 - [facility] 93.1 [facility] LABORATORY MCH 33.2 (H) 27.5 - [facility] 32.1 pg [facility] MCHC 33.1 32.0 - [facility] 35.7 g/dL [facility] Platelets 62 (L) 145 - 357 [facility] x10(3)/[facility] LABORATORY RDWSD 54.9 (H) 36.0 - [facility] 45.0 [facility] LABORATORY RDWCV 14.8 (H) 11.4 - [facility] 13.8 % [facility] MPV 11.8 7.6 - 12.9 [facility] LABORATORY nRBC % Auto 0.0 % [facility] nRBC Abs Auto 0.000 0.000 - [facility] 0.000 [facility] x10(3)/[facility] LABORATORY Specimen Anatomical Collection Method Collection Time Receive d Time (Source) Location / / Volume Laterality Blood 03/07/2022 7:55 AM 8:03 EDT AM EDT Resulting Agency Comment Spec In Lab Lea Villavicencio MD HEMATOLOGY ORDERABLES Performing Organization Address City/[facility]/[place] [address] [facility] LABORATORY Drive Iron and TIBC (03/07/2022 7:55 AM EDT) athologist Signature Iron 100 45 - 160 [facility] mcg/dL [facility] TIBC 278 250 - 450 [facility] mcg/dL [facility] Iron Saturation 36 20 - 50 % [facility] Specimen Anatomical Collection Method Collection Time Receive d Time (Source) Location / / Volume Laterality Blood 03/07/2022 7:55 AM 2 8:03 EDT AM EDT Resulting Agency Comment Spec In Lab Jayden Ignacio MD CHEMISTRY ORDERABLES Performing Organization Address City/[facility]/ZIP [facility] [place] [address] (ABNORMAL) Ferritin (03/07/2022 7:55 AM EDT) athologist Signature Ferritin 1,996 (H) 30 - 400 [facility] ng/mL [facility] Comment: rerun Pediatric reference ranges not verified at [facility], interpret with caution. Reference ranges for females greater kayleigh n 50 years of age approach values for men, i.e., 30-400 ng/mL. Specimen Anatomical Collection Method Collection Time Receive d Time (Source) Location / / Volume Laterality Blood 03/07/2022 7:55 AM 2 8:03 EDT AM EDT Resulting Agency Comment Spec In Lab Jayden Ignacio MD CHEMISTRY ORDERABLES Performing Organization Address City/[facility] [place] [address] Reticulocyte Count (03/07/2022 7:55 AM EDT) athologist Signature Retic Ct % 1.4 0.7 - 2.6 [facility] Retic Ct Abs 0.050 0.030 - [facility] 0.120 [facility] x10(6)/[facility] LABORATORY Immature Retic% 12.3 0.0 - 15.6 [facility] K % [facility] Reticulated Hgb 38.2 31.3 - [facility] 40.2 pg [facility] Specimen Anatomical Collection Method Collection Time Receive d Time (Source) Location / / Volume Laterality Blood 03/07/2022 7:55 AM 8:03 EDT AM EDT Resulting Agency Comment Spec In Lab Jayden Ignacio MD HEMATOLOGY ORDERABLES Performing Organization Address City/State/[place] [address] (ABNORMAL) Basic Metabolic Panel (non-fasting) (03/07/2022 7:55 AM EDT) P athologist Signature Glucose Lvl 186 65 - 199 [facility] mg/dL [facility] Comment: Diabetes: >=200 mg/dL plus symp toms BUN 57 (H) 10 - 20 mg/dL [facility] Creatinine 1.74 (H) 0.80 - 1.50 mg/dL [facility] Sodium 140 135 - 145 mmol/L [facility] Potassium 4.2 3.5 - 5.0 mmol/L [facility] Comment: Please note: ??Patients with WBC >100,00 0 may have falsely elevated Potassium levels. ??For accurate Potassium quantif ication in these patients send serum separator tube (gold top) for subsequent determinations. ??Contact the Clinical Chemistry Laboratory if there are any qu estions. Chloride 104 98 - 107 mmol/L [facility] CO2 26 22 - 31 mmol/L [facility] Anion Gap 10 5 - 15 mmol/L [facility] Calcium 9.4 8.5 - 10.5 mg/dL [facility] Estimated GFR 44 (L) >=60 mL/min/1.73 m?? [facility] Comment: This patient's estimated GFR was [...] Villavicencio MD CHEMISTRY ORDERABLES Performing Organization Address City/[facility]/ZIP Code Phon e Number [address] Phosphorus (03/07/2022 7:55 AM EDT) P athologist Signature Phosphorus 3.7 2.5 - 4.5 [facility] mg/dL [facility] Specimen Anatomical Collection Method Collection Time Receive d Time (Source) Location / / Volume Laterality Blood 03/07/2022 7:55 AM 2 8:03 EDT AM EDT Resulting Agency Comment Spec In Lab Lea Villavicencio MD CHEMISTRY ORDERABLES Performing Organization Address City/[facility]/ZIP Code Phon e Number [address] Albumin Level (03/07/2022 7:55 AM EDT) P athologist Signature Albumin 3.7 3.2 - 5.2 [facility] g/dL [facility] Specimen Anatomical Collection Method Collection Time Receive d Time (Source) Location / / Volume Laterality Blood 03/07/2022 7:55 AM 2 8:03 EDT AM EDT Resulting Agency Comment Spec In Lab Lea Villavicencio MD CHEMISTRY ORDERABLES Performing Organization Address City/[facility]/ZIP [facility] [place] [address] Uric acid (03/07/2022 7:55 AM EDT) P athologist Signature Uric Acid 4.2 3.5 - 8.5 [facility] mg/dL [facility] Specimen Anatomical Collection Method Collection Time Receive d Time (Source) Location / / Volume Laterality Blood 03/07/2022 7:55 AM 2 8:03 EDT AM EDT Resulting Agency Comment Spec In Lab Lea Villavicencio MD CHEMISTRY ORDERABLES Performing Organization Address City/State/ZIP Code Phon e Number [address] PTH (03/07/2022 7:55 AM EDT) P athologist Signature PTH 50 15 - 65 [facility] pg/mL [facility] Specimen Anatomical Collection Method Collection Time Receive d Time (Source) Location / / Volume Laterality Blood 03/07/2022 7:55 AM 8:03 EDT AM EDT Resulting Agency Comment Spec In Lab Lea Villavicencio MD CHEMISTRY ORDERABLES Performing Organization Address City/[facility]/[place] [address] documented in this encounter Visit Diagnoses Diagnosis Stage 3b chronic kidney disease Bicytopenia Other specified diseases of blood and bl ood-forming organs Iron deficiency anemia, unspecified iron deficiency anemia type Anemia in stage 3a chronic kidney diseas e documented in this encounter Care Teams Wrist Liner Relationship Specialty Start Date End Date Jazmine Baer MD PCP - General 11/07/10 [address] [place] [address] documented as of this encounter
--- OUTSIDE RECORDS SUMMARY | 2022-04-11 10:46 | XMS_ITS | Encounter Summary ---
:1960 Author Organization [place] [address] Care Team Providers Name Role Phone Jazmine Baer MD Primary Care Provider Encounter Details Date Type Department Care Team Description 02/24/2022 External Results Hematology and Oncology Rosalina Santos, [place] [address] Social History Tobacco Use Types Packs/Day Years Used Date Never Smoker Smokeless Tobacco: Never Used Alcohol Use Standard Drinks/Week Comments No 0 (1 standard drink = 0.6 oz pure alcoho l) Sex Assigned at Date Recorded Not on file documented as of this encounter Plan of Treatment Upcoming Encounters Date Type Specialty Care Team Description 06/19/2022 Office Visit Rheumatology Richi Blackmon MD [facility] DR RHEUMATOLOGY [place], [place] [address] (Wo rk) Scheduled Procedures Name Priority Associated Diagnoses Date/Time EGD, UPPER GI ENDOSCOPY Family hx of colon cance r COLONOSCOPY, DIAGNOSTIC Family hx of colon cance r documented as of this encounter Procedures Procedure Name Priority Date/Time Associated Diagnosis Comme nts CBC (WITH DIFF) Routine 02/19/2022 7:05 AM Result s for this EDT procedure are i n the results section. documented in this encounter Results (ABNORMAL) CBC (with Diff) (02/19/2022 7:05 AM EDT) Analysis Performed At [facility] Time Signature WBC 4.59 4.4 - 10.8 EXTERNAL LAB Hemoglobin 12.7 (A) 13.5 - EXTERNAL LAB 17.5 Hematocrit 38.2 (A) 40.0 - EXTERNAL LAB 50.0 Platelets 76 (A) 130 - 400 EXTERNAL LAB Neutr Abs (ANC) 2.97 1.2 - 6.7 EXTERNAL LAB Creatinine 1.9 (A) 0.7 - 1.3 EXTERNAL LAB CK, Total 367 (A) 39 - 308 EXTERNAL LAB CRP 0.83 (A) 0 - 0.3 EXTERNAL LAB Specimen (Source) Anatomical Collection Method Collection Time Re ceived Time Location / / Volume Laterality Blood 02/19/2022 7:05 AM EDT Historical Provider HEMATOLOGY ORDERABLES Performing Organization Address City/State/ZIP Code Phon e Number EXTERNAL FACILITY EXTERNAL LAB documented in this encounter Visit Diagnoses Not on filedocumented in this encounter Care Teams Host/Hostess Ground Relationship Specialty Start Date End Date Jazmine Baer MD PCP - General 11/07/10 [address] [place] [address] documented as of this encounter
--- OUTSIDE RECORDS SUMMARY | 2022-04-11 10:46 | XMS_ITS | Encounter Summary ---
:1960 Author Organization [facility] [place] [address] Care Team Providers Name Role Phone Jazmine Baer MD Primary Care Provider Encounter Details Date Type Department Care Team Description 02/16/2022 Orders Only Nephrology Hypertension Pb Farah 3b chronic at [facility] [place] [phone] Social History Tobacco Use Types Packs/Day Years Used Date Never Smoker Smokeless Tobacco: Never Used Alcohol Use Standard Drinks/Week Comments No 0 (1 standard drink = 0.6 oz pure alcoho l) Sex Assigned at Date Recorded Not on file documented as of this encounter Plan of Treatment Upcoming Encounters Date Type Specialty Care Team Description 06/19/2022 Office Visit Rheumatology Richi Blackmon MD [facility] DR RHEUMATOLOGY [place], [place] [address] (Wo rk) Scheduled Procedures Name Priority Associated Diagnoses Date/Time EGD, UPPER GI ENDOSCOPY Family hx of colon cance r COLONOSCOPY, DIAGNOSTIC Family hx of colon cance r documented as of this encounter Results Protein/Creatinine Ratio, urine (03/07/2022 8:06 AM EDT) P athologist Signature U Creatinine 18 mg/dL [facility] U Protein Ran <6 0 - 12 [facility] Prot/Cre Ratio <0.3 ratio [facility] Specimen Anatomical Collection Method Collection Time Receive d Time (Source) Location / / Volume Laterality Urine 03/07/2022 8:06 AM 2 8:30 EDT AM EDT Resulting Agency Comment Spec In Lab Lea Villavicencio MD URINE ORDERABLES Performing Organization Address City/[facility]/[place] [address] PTH (03/07/2022 7:55 AM EDT) P athologist Signature PTH 50 15 - 65 [facility] pg/mL [facility] Specimen Anatomical Collection Method Collection Time Receive d Time (Source) Location / / Volume Laterality Blood 03/07/2022 7:55 AM 2 8:03 EDT AM EDT Resulting Agency Comment Spec In Lab Lea Villavicencio MD CHEMISTRY ORDERABLES Performing Organization Address City/[facility]/[place] [address] Uric acid (03/07/2022 7:55 AM EDT) P athologist Signature Uric Acid 4.2 3.5 - 8.5 [facility] mg/dL [facility] Specimen Anatomical Collection Method Collection Time Receive d Time (Source) Location / / Volume Laterality Blood 03/07/2022 7:55 AM 2 8:03 EDT AM EDT Resulting Agency Comment Spec In Lab Lea Villavicencio MD CHEMISTRY ORDERABLES Performing Organization Address City/[facility]/[place] [address] Albumin Level (03/07/2022 7:55 AM EDT) P athologist Signature Albumin 3.7 3.2 - 5.2 [facility] g/dL [facility] Specimen Anatomical Collection Method Collection Time Receive d Time (Source) Location / / Volume Laterality Blood 03/07/2022 7:55 AM 2 8:03 EDT AM EDT Resulting Agency Comment Spec In Lab Lea Villavicencio MD CHEMISTRY ORDERABLES Performing Organization Address City/[facility]/[place] [address] [facility] [address] Phosphorus (03/07/2022 7:55 AM EDT) athologist Signature Phosphorus 3.7 2.5 - 4.5 [facility] Specimen Anatomical Collection Method Collection Time Receive d Time (Source) Location / / Volume Laterality Blood 03/07/2022 7:55 AM 8:03 EDT AM EDT Resulting Agency Comment Spec In Lab Lea Villavicencio MD CHEMISTRY ORDERABLES Performing Organization Address City/State/[place] [address] [facility] [address] (ABNORMAL) Basic Metabolic Panel (non-fasting) (03/07/2022 7:55 AM EDT) athologist Signature Glucose Lvl 186 65 - 199 [facility] mg/dL [facility] Comment: Diabetes: >=200 mg/dL plus symp toms BUN 57 (H) 10 - 20 mg/dL [facility] Creatinine 1.74 (H) 0.80 - 1.50 mg/dL [facility] Sodium 140 135 - 145 mmol/L [facility] Potassium 4.2 3.5 - 5.0 mmol/L [facility] Comment: Please note: ??Patients with WBC >100,00 0 may have falsely elevated Potassium levels. ??For accurate Potassium quantif ication in these patients send serum separator tube (gold top) for subsequent determinations. ??Contact the Clinical Chemistry Laboratory if there are any qu estions. Chloride 104 98 - 107 mmol/L [facility] CO2 26 22 - 31 mmol/L [facility] Anion Gap 10 5 - 15 mmol/L [facility] Calcium 9.4 8.5 - 10.5 mg/dL [facility] Estimated GFR 44 (L) >=60 mL/min/1.73 m?? [facility] Comment: This patient's estimated GFR [...] Organization Address City/State/[place] [address] documented in this encounter Visit Diagnoses Diagnosis Stage 3b chronic kidney disease documented in this encounter Care Teams Ticket Manager Relationship Specialty Start Date End Date Jazmine Baer MD PCP - General 11/07/10 [address] [place] [address] documented as of this encounter
--- OUTSIDE RECORDS SUMMARY | 2022-04-11 10:46 | XMS_ITS | Encounter Summary ---
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 Jazmine Baer MD [facility] [place] [place] Gastro 4l 571.5 (ICD-9-CM) - K74.60 (I CD-10-CM) - Hepatic cirrhosis, unspecified hepatic cirrhosis type, unspecified whether ascites present [address] [facility] Procedures 530.85 (ICD-9-CM) - K22.70 (ICD-10-CM) - 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 571.5 (ICD-9-CM) - K74.60 (ICD-10-CM) - Hepatic cirrhosis, unspecified hepatic cirrhosis type, unspecified [place] [address] [place] [address] Phone: Fax: Referral ID Status Reason Start Expiration Visits Visits Date Date Requested Authorized [id number] Authorized Consult, 10/04/2021 10/04/2022 12 12 Test & Treat PCP Updated and/or Approved Encounter Details Date Type Department Care Team Description 10/04/2021 Transcribe Orders eDH Incoming Jazmine Baer Durand' s esophagus without dysplasia; Referrals MD Nikia Hepatic cirrhosis, unspecified hepatic c irrhosis type, unspecified whether ascites present [phone] [address] [place] [address] Social History Tobacco Use Types Packs/Day Years Used Date Never Smoker Smokeless Tobacco: Never Used Alcohol Use Standard Drinks/Week Comments No 0 (1 standard drink = 0.6 oz pure alcoho l) Sex Assigned at Date Recorded Not on file documented as of this encounter Plan of Treatment Upcoming Encounters Date Type Specialty Care Team Description 06/19/2022 Office Visit Rheumatology Richi Blackmon MD [facility] DR RHEUMATOLOGY [place], [place] [address] (Wo rk) Scheduled Procedures Name Priority Associated Diagnoses Date/Time EGD, UPPER GI ENDOSCOPY Family hx of colon cance r COLONOSCOPY, DIAGNOSTIC Family hx of colon cance r Scheduled Referrals Name Type Priority Associated Order Schedule Diagnoses Referral to Outpatient Routine Durand's esophagus Ordered: Gastroenterology Referral without dysplas ia 10/04/2021 Hepatic cirrhosis, unspecified hepatic cirrhosis type, unspecified whether ascites present documented as of this encounter Visit Diagnoses Diagnosis 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
--- OUTSIDE RECORDS SUMMARY | 2022-04-11 10:46 | XMS_ITS | Encounter Summary ---
:1960 Author Organization [facility] [place] [address] Care Team Providers Name Role Phone Jazmine Baer MD Primary Care Provider Encounter Details Date Type Department Care Team Description 12/06/2021 Laboratory Appointment Lab 3L [facility] HMG-CoA myositis; [facility] [place] [id number] Social History Tobacco Use Types Packs/Day Years Used Date Never Smoker Smokeless Tobacco: Never Used Alcohol Use Standard Drinks/Week Comments No 0 (1 standard drink = 0.6 oz pure alcoho l) Sex Assigned at Date Recorded Not on file documented as of this encounter Plan of Treatment Upcoming Encounters Date Type Specialty Care Team Description 06/19/2022 Office Visit Rheumatology Richi Blackmon MD [facility] RHEUMATOLOGY [place], [place] [address] (Wo rk) Scheduled Procedures Name Priority Associated Diagnoses Date/Time EGD, UPPER GI ENDOSCOPY Family hx of colon cance r COLONOSCOPY, DIAGNOSTIC Family hx of colon cance r documented as of this encounter Procedures Procedure Name Priority Date/Time Associated Comments Diagnosis HC VENIPUNCTURE Routine 12/06/2021 3:12 PM HMG-CoA myosi tis Results for this EDT High risk procedure are i n medication use the results section. HC CREATININE Routine 12/06/2021 3:12 PM HMG-CoA myosi tis Results for this EDT High risk procedure are i n medication use the results section. HC THYROID Routine 12/06/2021 3:12 PM HMG-CoA myosi tis Results for this STIMULATING HORMONE, EDT High risk procedu re are in SERUM medication use the results section. HC FREE THYROXINE Routine 12/06/2021 3:12 PM HMG-CoA varinder sitis Results for this (T4) EDT High risk procedure are i n medication use the results section. HC CREATINE Routine 12/06/2021 3:12 PM HMG-CoA myosi tis Results for this PHOSPHOKINASE, SERUM EDT High risk procedu re are in medication use the results section. documented in this encounter Results TSH (12/06/2021 3:12 PM EDT) athologist Signature TSH 2.48 0.27 - 4.20 DU[place] JAUREGUI mcIU/mL [facility] Comment: Reference Interval (mcIU/mL): Females: ??First Trimester: 0.23-3.88 ??Second Trimester: 0.22-3.90 ??Third Trimester: 0.44-4.66 Specimen Anatomical Collection Method Collection Time Receive d Time (Source) Location / / Volume Laterality Blood 12/06/2021 3:12 PM 2 3:31 EDT PM EDT Resulting Agency Comment Spec In Lab Jayden Valdez MD CHEMISTRY ORDERABLES Performing Organization Address City/[facility]/[place] [address] T4, free (12/06/2021 3:12 PM EDT) athologist Signature Free T4 1.07 0.93 - 1.70 DU[place] JAUREGUI ng/dL [facility] Comment: Reference Interval (ng/dL): Females: ??First Trimester: 0.97-1.68 ??Second Trimester: 0.77-1.51 ??Third Trimester: 0.77-1.49 Specimen Anatomical Collection Method Collection Time Receive d Time (Source) Location / / Volume Laterality Blood 12/06/2021 3:12 PM 2 3:31 EDT PM EDT Resulting Agency Comment Spec In Lab Jayden Valdez MD CHEMISTRY ORDERABLES Performing Organization Address City/State/ZIP Code [place] [address] (ABNORMAL) Creatinine (12/06/2021 3:12 PM EDT) Analysis Performed At Patho logist Time Signature Creatinine 1.80 (H) 0.80 - DU[place]AS JAUREGUI 1.50 mg/dL [facility] Estimated GFR 42 (L) >=60 DUGLAS JAUREGUI mL/min/1.7 [facility] 3 ?? [facility] Comment: This patient's estimated GFR [...] Organization Address City/State/[place] [address] (ABNORMAL) CK (12/06/2021 3:12 PM EDT) athologist Signature CK, Total 1,453 (H) 0 - 200 [facility] [place] unit/L [facility] Specimen Anatomical Collection Method Collection Time Receive d Time (Source) Location / / Volume Laterality Blood 12/06/2021 3:12 PM 2 3:31 EDT PM EDT Resulting Agency Comment Spec In Lab Jayden Valdez MD CHEMISTRY ORDERABLES Performing Organization Address City/State/[place] [address] (ABNORMAL) CRP, acute inflammation (12/06/2021 3:12 PM EDT) P athologist Signature CRP 9.3 (H) <=4.9 mg/L [facility] Specimen Anatomical Collection Method Collection Time Receive d Time (Source) Location / / Volume Laterality Blood 12/06/2021 3:12 PM 2 3:31 EDT PM EDT Resulting Agency Comment Spec In Lab Jayden Valdez MD CHEMISTRY ORDERABLES Performing Organization Address City/State/[place] [address] documented in this encounter Visit Diagnoses Diagnosis HMG-CoA myositis Mylagia and myositis, unspecified High risk medication use Encounter for long-term (current) use of other medications documented in this encounter Care Teams Refractory Specialist Relationship Specialty Start Date End Date Jazmine Baer MD PCP - General 11/07/10 [address] [place] [address] documented as of this encounter
--- OUTSIDE RECORDS SUMMARY | 2022-04-11 10:47 | XMS_ITS | Encounter Summary ---
:1960 Author Organization [facility] [place] [address] Care Team Providers Name Role Phone Jazmine Baer MD Primary Care Provider Reason for Visit Reason Onset Date Comments Results 06/22/2020 LS/TS Xrays Encounter Details Date Type Department Care Team Description 06/22/2020 Telephone Rheumatology at [facility] Corrine Gomes, Results (LS/TS Xrays) [facility] Hilda shafer [place] [address] [facility] [phone] [place], [place] [address] Social History Tobacco Use Types Packs/Day Years Used Date Never Smoker Smokeless Tobacco: Never Used Alcohol Use Standard Drinks/Week Comments No 0 (1 standard drink = 0.6 oz pure alcoho l) Sex Assigned at Date Recorded Not on file documented as of this encounter Miscellaneous Notes Telephone Encounter - Corrine Gomes APRN - 06/22/2020 11:17 AM EST I spoke with Les via telephone regarding his x-ray results. Overall looks like osteoarthritis withno obvious cause for his right flank pain. He said he tried the baclofen with minimal benefit so hasnot continued. Taking Tylenol 1500 mg twice daily is helpful. Denies hematuria. We discussed need for follow-up as potential causes for his back pain could be renal (though less likely given that it is positional and he had no CVA tenderness on exam) and he should follow-up with his vacuum pan tender, likewise because he is taking 3000 mg of Tylenol daily. If nephrology does not feel that additional work-up is warranted then the next up would be primary care. Les expressed understanding and will follow up with this plan. He will let me know if he needs anything from me. documented in this encounter Plan of Treatment Upcoming Encounters Date Type Specialty Care Team Description 06/19/2022 Office Visit Rheumatology Richi Blackmon MD [facility] DR RHEUMATOLOGY [place], [place] [address] (Wo rk) Scheduled Procedures Name Priority Associated Diagnoses Date/Time EGD, UPPER GI ENDOSCOPY Family hx of colon cance r COLONOSCOPY, DIAGNOSTIC Family hx of colon cance r documented as of this encounter Visit Diagnoses Not on filedocumented in this encounter Care Teams Md Urologist Relationship Specialty Start Date End Date Jazmine Baer MD PCP - General 11/07/10 [address] [place] [address] documented as of this encounter
--- OUTSIDE RECORDS SUMMARY | 2022-04-11 10:47 | XMS_ITS | Encounter Summary ---
:1960 Author Organization [facility] [place] [address] Care Team Providers Name Role Phone Jazmine Baer MD Primary Care Provider Encounter Details Date Type Department Care Team Description 08/02/2021 Telephone Hematology and Oncol ogy at [facility] Daniela Lan, [place] [address] Social History Tobacco Use Types Packs/Day Years Used Date Never Smoker Smokeless Tobacco: Never Used Alcohol Use Standard Drinks/Week Comments No 0 (1 standard drink = 0.6 oz pure alcoho l) Sex Assigned at Date Recorded Not on file documented as of this encounter Miscellaneous Notes Telephone Encounter - Daniela Lan, RN - 08/02/2021 10:42 AM EST Received lab results dated??08/01/2021??via fax from [facility].??Results have been entered into eD-H. ?? Diagnosis: Iron deficiency anemia, anemia of renal insufficiency, (Aranesp 60mcg SQ injection q2 weeks for for Hgb < 12; Venofer 300mg IV every 4 weeks for iron saturation < 30). Continue with current POC: labs and care at [facility]. RTC 03/02/22. ?? 08/01/21 00:00 WBC 6.06 (C) (E) Hemoglobin 9.0 (L) (C) (E) Hematocrit 28.3 (L) (C) (E) Platelets 94 (L) (C) (E) Neutr Abs (ANC) 4.3 (C) (E) (L): Data is abnormally low (C): Corrected (E): External lab result Note sent to Karen Lugo APRN, with??lab results. ?? RN will continue to track labs,??monitor status??and coordinate care. Telephone Encounter - Daniela Lan RN - 08/02/2021 10:22 AM EST Error documented in this encounter Plan of Treatment Upcoming Encounters Date Type Specialty Care Team Description 06/19/2022 Office Visit Rheumatology Richi Blackmon MD [facility] DR RHEUMATOLOGY [place], [place] [address] (Wo rk) Scheduled Procedures Name Priority Associated Diagnoses Date/Time EGD, UPPER GI ENDOSCOPY Family hx of colon cance r COLONOSCOPY, DIAGNOSTIC Family hx of colon cance r documented as of this encounter Procedures Procedure Name Priority Date/Time Associated Diagnosis Comme nts CBC (WITH DIFF) Routine 08/01/2021 Results for this procedure are i n the results section . COMPREHENSIVE METABOLIC Routine 07/31/2021 PANEL (NON-FASTING) documented in this encounter Results (ABNORMAL) CBC (with Diff) (08/01/2021) Analysis Performed At Patho logist Time Signature WBC 6.06 Hemoglobin 9.0 (L) Hematocrit 28.3 (L) Platelets 94 (L) Neutr Abs (ANC) 4.3 Specimen (Source) Anatomical Location Collection Method / Collectio n Time Received Time / Laterality Volume Blood 08/01/2021 Historical Provider HEMATOLOGY ORDERABLES (ABNORMAL) Comprehensive metabolic panel (non-fasting) (07/31/2021) P athologist Signature Sodium Potassium Chloride CO2 Calcium Total Protein AST ALT Specimen (Source) Anatomical Location Collection Method / Collectio n Time Received Time / Laterality Volume Blood 07/31/2021 Historical Provider CHEMISTRY ORDERABLES documented in this encounter Visit Diagnoses Not on filedocumented in this encounter Care Teams Management Information Systems Director Relationship Specialty Start Date End Date Jazmine Baer MD PCP - General 11/07/10 [address] [place] [address] documented as of this encounter
--- OUTSIDE RECORDS SUMMARY | 2022-04-11 10:47 | XMS_ITS | Encounter Summary ---
:1960 Author Organization [facility] [place] [address] Care Team Providers Name Role Phone Jazmine Baer MD Primary Care Provider Encounter Details Date Type Department Care Team Description 02/07/2021 Telephone Hematology and Oncol ogy at [facility] Daniela Lan, [place] [address] Social History Tobacco Use Types Packs/Day Years Used Date Never Smoker Smokeless Tobacco: Never Used Alcohol Use Standard Drinks/Week Comments No 0 (1 standard drink = 0.6 oz pure alcoho l) Sex Assigned at Date Recorded Not on file documented as of this encounter Miscellaneous Notes Telephone Encounter - Daniela Lan RN - 02/07/2021 7:28 PM EDT FReceived lab results dated??02/06/21??via fax from [facility].??Results available under media tab. ?? Patient w/LONNIE & Thrombocytopenia last seen 08/30/19 with q month Venofer for iron sat <20 and q other week Aranesp for HGB <12 at [facility]. ?? HGB 11.3 L, HCT 35.6 L, PLT 64 L, ANC 2.5, CR 1.9 H, IRON 59 L, TIBC 242 L, IRON SAT 24, EGFR 36.1 L ?? Note sent to Karen Lugo APRN, with??lab results. ?? Continue with current POC: labs and care at [facility] 03/03/21 ?? RN will continue to track labs,??monitor status??and coordinate care. documented in this encounter Plan of Treatment Upcoming Encounters Date Type Specialty Care Team Description 06/19/2022 Office Visit Rheumatology Richi Blackmon MD [facility] ER DR RHEUMATOLOGY [place], [place] [address] (Wo rk) Scheduled Procedures Name Priority Associated Diagnoses Date/Time EGD, UPPER GI ENDOSCOPY Family hx of colon cance r COLONOSCOPY, DIAGNOSTIC Family hx of colon cance r documented as of this encounter Visit Diagnoses Not on filedocumented in this encounter Care Teams Aircraft Time Clerk Relationship Specialty Start Date End Date Jazmine Baer MD PCP - General 11/07/10 [address] [place] [address] documented as of this encounter
--- OUTSIDE RECORDS SUMMARY | 2022-04-11 10:47 | XMS_ITS | Encounter Summary ---
:1960 Author Organization [facility] [place] [address] Care Team Providers Name Role Phone Jazmine Baer MD Primary Care Provider Reason for Visit Reason Onset Date Comments Epistaxis 07/25/2021 Encounter Details Date Type Department Care Team Description 07/25/2021 Telephone Hematology and Oncol [place] at [facility] [place] [address] Social History Tobacco Use Types Packs/Day Years Used Date Never Smoker Smokeless Tobacco: Never Used Alcohol Use Standard Drinks/Week Comments No 0 (1 standard drink = 0.6 oz pure alcoho l) Sex Assigned at Date Recorded Not on file documented as of this encounter Miscellaneous Notes Telephone Encounter - Ankita Alonzo RN - 07/25/2021 4:40 PM EST Message received from guidance secretary: Just got a call from Dolores at [facility] infusion room. ??Les gets his iron and aranesp injections thereonce a month. ?? She said he reports that he had a recent nose bleed that lasted for 4 hours and said sometimes they last for 8 hours. ??He said that ever since [facility] docs put him on carvedilol, they seem to be getting worse. ??He was prescribed this drug by them in April,. She said he doesn't go to the ER for these bleeds. ??His hgb last month was 11.6 last month and now it's 8.4. Please givesonja/patient a call at: [phone]. RN Reviewed Chart: patient with both anemia and thrombocytopenia last seen in clinic 03/03/21. Care Plan=monthly Venofer 300mg for iron saturation < 20 and Aranesp 60 mcg SQ injection q2 weeks for Hgb < 12gm/dL at [facility]. RTC currently scheduled for 03/02/22. 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 No clinically significant bleeding. Platelet count remains stable without clinical consequences in the 60-80,000 range. RN called Dolores at [facility]: PLT today 102 which is robust for patient. For today if patient refusing ER, RN instructed Dolores to have him call PCP as high BP (treated with Carvedilol) could contribute to epistaxis. In the meantime, RN will round back to team here for ?sooner RTC or other intervention. Caller: Les Relationship: Self Clarified Two Patient Identifiers: [x] Reason For Call: Epistaxis Assessment/Symptom Review (onset, location, duration, what makes it better or worse, pertinent positives and negatives): He reports he has a long standing history of nosebleeds, that happened monthly, but were able to be controlled readily. He estimates since April they have gotten worse and are happening weekly. Thenin the last month these started happening and were unable to be controlled readily and started persisting for hours. This has only ever been on the right nare, which had been cauterized previously. Blood is deep red not bright red. No clots. It does drain down his throat which then once caused himto vomit. More often he's spitting it out from the nasal drain. When the bleed happens, he lays flat on a bed and uses a kleenex or toilet paper and pushes this up the nasal passage. He is not having any dizziness or lightheadedness right now. No shortness of breath. No feeling of heart racing or skipping beats or chest pain. No CAR[place]. No traumatic injuries. He did call his PCP today, who has referred him back to ENT. Review of Systems Related to Reason for Call: System POS NEG Not Applicable Head (ENT /Neuro) [x] [] [] Cardiac [] [x] [] Respiratory [] [x] [] GI [] [x] [] [] [x] [] Musculoskeletal [] [x] [] Integumentary [] [x] [] Mental Health [] [x] [] Select Specific Decision Support Tool Used: Telephone Triage Protocols for Nurses, 6th Edition, Bethanie Charles, 2020 Name of Guideline/Protocol Used: Nosebleed Disposition/Plan of Care: Referred to specialty provider RN provided home care instructions: maintain moist nasal passages to prevent bleeding (humidifer, nasal saline spray but do not insert nozzle oranything else to nasal passage). Do not traumatize the nasal passage by inserting fingers/kleenex, and if need to blow nose do so gently as possible. If nose bleeds, apply firm pressure using thumb andforefinger to bridge of nose for 15 consecutive minutes. If this does not resolve bleed, repeat. If still bleeding, ER for intervention. Patient/Caregiver verbalizes understanding of plan of care: Yes Patient/Caregiver agrees with plan: No Patient refuses to go to ER but will comply with PCP/ENT follow up and director of career resources instructions. Advised patient/caregiver to: call office back for any new or worsening symptoms; emphasized symptoms that would require immediate ER/UC visit as per guideline in [place] Patient/Caregiver demonstrates understanding via teach back: Yes documented in this encounter Plan of Treatment Upcoming Encounters Date Type Specialty Care Team Description 06/19/2022 Office Visit Rheumatology Richi Blackmon MD [facility] ER DR RHEUMATOLOGY [place], [place] [address] (Wo rk) Scheduled Procedures Name Priority Associated Diagnoses Date/Time EGD, UPPER GI ENDOSCOPY Family hx of colon cance r COLONOSCOPY, DIAGNOSTIC Family hx of colon cance r documented as of this encounter Visit Diagnoses Not on filedocumented in this encounter Care Teams Aircraft Structure Mechanic Relationship Specialty Start Date End Date Jazmine Baer MD PCP - General 11/07/10 [address] [place] [address] documented as of this encounter
--- OUTSIDE RECORDS SUMMARY | 2022-04-11 10:47 | XMS_ITS | Encounter Summary ---
:1960 Author Organization [facility] [place] [address] Care Team Providers Name Role Phone Jazmine Baer MD Primary Care Provider Reason for Visit Reason Onset Date Comments Labs Only 12/26/2020 Encounter Details Date Type Department Care Team Description 12/26/2020 Telephone Hematology and Oncol ogy at [facility] Ankita [place] [address] Social History Tobacco Use Types Packs/Day Years Used Date Never Smoker Smokeless Tobacco: Never Used Alcohol Use Standard Drinks/Week Comments No 0 (1 standard drink = 0.6 oz pure alcoho l) Sex Assigned at Date Recorded Not on file documented as of this encounter Miscellaneous Notes Telephone Encounter - Ankita Alonzo RN - 12/26/2020 4:18 PM EDT Received lab results dated??12/26/20??via fax from [facility].??Results have been sent to Tatiana Vincent to input results into eDH. Results under Media page. ?? Patient w/LONNIE & Thrombocytopenia last seen 08/30/19 with q month Venofer for iron sat <20 and q other week Aranesp for HGB <12 at [facility]. ?? HGB 12.2 L, HCT 38.8 L, PLT 71 L, CR 1.7 H, CRP 1.02 H ?? Note sent to Karen Lugo APRN, with??lab results. ?? Continue with current POC: labs and care at [facility]. RTC 03/03/21 ?? RN will continue to track labs,??monitor status??and coordinate care. documented in this encounter Plan of Treatment Upcoming Encounters Date Type Specialty Care Team Description 06/19/2022 Office Visit Rheumatology Richi Blackmon MD [facility] ER DR RHEUMATOLOGY [place], [place] [address] (Wo rk) Scheduled Procedures Name Priority Associated Diagnoses Date/Time EGD, UPPER GI ENDOSCOPY Family hx of colon cance r COLONOSCOPY, DIAGNOSTIC Family hx of colon cance r documented as of this encounter Visit Diagnoses Not on filedocumented in this encounter Care Teams Blue Line Trimmer Relationship Specialty Start Date End Date Jazmine Baer MD PCP - General 11/07/10 [address] [place] [address] documented as of this encounter
--- OUTSIDE RECORDS SUMMARY | 2022-04-11 10:47 | XMS_ITS | Encounter Summary ---
:1960 Author Organization [facility] [place] [address] Care Team Providers Name Role Phone Jazmine Baer MD Primary Care Provider Encounter Details Date Type Department Care Team Description 06/27/2020 Orders Only Hematology and Oncology at Karen Camilo APRN [facility] Hilda shafer HEMATOLOGY/[place] [address] DEPT. [phone] [place], [place] [address] (Wo rk) Social History Tobacco Use Types Packs/Day Years Used Date Never Smoker Smokeless Tobacco: Never Used Alcohol Use Standard Drinks/Week Comments No 0 (1 standard drink = 0.6 oz pure alcoho l) Sex Assigned at Date Recorded Not on file documented as of this encounter Progress Notes Karen Lugo APRN - 06/27/2020 9:31 AM EST Date: 06/27/2020 Patient Name: Bucky Acevedo : 1960 Diagnosis: Iron deficiency anemia, anemia of renal insufficiency Referral to [site]: [facility] Lab orders: ?? CBC, creatinine q2 weeks; iron saturation q4 weeks Infusion Orders: Standing orders x 12 months ?? Aranesp 60mcg SQ injection q2 weeks for for Hgb < 12 ?? Venofer 300mg IV every 4 weeks for iron saturation < 30 Signature: Karen Lugo, MSN, [employer] MIXER beeper # [id number] documented in this encounter Plan of Treatment Upcoming Encounters Date Type Specialty Care Team Description 06/19/2022 Office Visit Rheumatology Richi Blackmon MD [facility] DR RHEUMATOLOGY [place], [place] [address] (Wo rk) Scheduled Procedures Name Priority Associated Diagnoses Date/Time EGD, UPPER GI ENDOSCOPY Family hx of colon cance r COLONOSCOPY, DIAGNOSTIC Family hx of colon cance r documented as of this encounter Visit Diagnoses Not on filedocumented in this encounter Care Teams Section Gang Relationship Specialty Start Date End Date Jazmine Baer MD PCP - General 11/07/10 [address] [place] [address] documented as of this encounter
--- OUTSIDE RECORDS SUMMARY | 2022-04-11 10:47 | XMS_ITS | Encounter Summary ---
:1960 Author Organization [facility] [place] [address] Care Team Providers Name Role Phone Jazmine Baer MD Primary Care Provider Encounter Details Date Type Department Care Team Description 08/24/2020 Laboratory Appointment Lab 3L [facility] Stage 3b [facility] [place] [id number] Social History Tobacco Use Types Packs/Day Years Used Date Never Smoker Smokeless Tobacco: Never Used Alcohol Use Standard Drinks/Week Comments No 0 (1 standard drink = 0.6 oz pure alcoho l) Sex Assigned at Date Recorded Not on file documented as of this encounter Plan of Treatment Upcoming Encounters Date Type Specialty Care Team Description 06/19/2022 Office Visit Rheumatology Richi Blackmon MD [facility] RHEUMATOLOGY [place], [place] [address] (Wo rk) Scheduled Procedures Name Priority Associated Diagnoses Date/Time EGD, UPPER GI ENDOSCOPY Family hx of colon cance r COLONOSCOPY, DIAGNOSTIC Family hx of colon cance r documented as of this encounter Procedures Procedure Name Priority Date/Time Associated Comments Diagnosis HC CREATININE - NON Routine 08/24/2020 9:38 AM Stage 3b chroni c Results for this BLOOD EDT kidney disease procedure are in the results section. HC PARATHYROID Routine 08/24/2020 9:32 AM Stage 3b chronic Res ults for this HORMONE(PTH INTACT EDT kidney disease procedu re are in the results section. HEMOGRAM Routine 08/24/2020 9:32 AM Stage 3b chronic Resul ts for this EDT kidney disease procedure are in the results section. DIFFERENTIAL, Routine 08/24/2020 9:32 AM Stage 3b chronic Resu lts for this AUTOMATED EDT kidney disease procedure are in the results section. HC VITAMIN D TOTAL-25 Routine 08/24/2020 9:32 AM Stage 3b manager digital idalmis Results for this HYDROXY EDT kidney disease procedure are in the results section. HC VENIPUNCTURE Routine 08/24/2020 9:32 AM Stage 3b chronic EDT kidney disease HC URIC ACID, SERUM Routine 08/24/2020 9:32 AM Stage 3b chroni c Results for this EDT kidney disease procedure are in the results section. HC PHOSPHORUS, SERUM Routine 08/24/2020 9:32 AM Stage 3b chron ic Results for this EDT kidney disease procedure are in the results section. HC ALBUMIN, SERUM Routine 08/24/2020 9:32 AM Stage 3b chronic Results for this EDT kidney disease procedure are in the results section. BASIC METABOLIC PANEL Routine 08/24/2020 9:32 AM Stage 3b manager digital idalmis Results for this (NON-FASTING) EDT kidney disease procedure ar e in the results section. documented in this encounter Results (ABNORMAL) U Albumin/Cre Ratio (08/24/2020 9:38 AM EDT) athologist Signature Alb/Cr Ratio, 111 (H) 0 - 29 [facility] Random mcg/mg Man [facility] LABORATORY Comment: Reference Ranges: <30 mcg/mg: Normal 30-300 mcg/mg: Moderately increased albu minuria.* >300 mcg/mg: Severely increased albuminu marci. * ACEI or ARB recommended if diabetic; s uggested if BP>130/80 without diabetes ACEI or ARB strongly recommended if di abetic; recommended if BP>130/80 without diabetes Two of three specimens collected within a 3 to 6 month period should be abnormal before considering a patient to have albuminuria. Transient causes: exercise, fever, infection, CHF, marked hyperglycemia or hypertension. Persistent albuminuria indicates CKD and is an independent risk factor for ASCVD. ADA Standards of Medical Care in Diabete s-2016; KDIGO: Kidney International Supplements (2012) 2, 357? 362 U Albumin Conc, Random 49.8 mg/L [facility] LABORATORY U Creatinine 45 mg/dL [facility] LABORATORY Specimen Anatomical Collection Method Collection Time Receive d Time (Source) Location / / Volume Laterality Urine specimen 08/24/2020 9:38 AM 021 9:50 (specimen) EDT AM EDT Resulting Agency Comment Spec In Lab Lea Villavicencio MD URINE ORDERABLES Performing Organization Address City/State/[place] [address] (ABNORMAL) Differential, Automated (08/24/2020 9:32 AM EDT) [facility] Method Time Signature Neutrophils % 67.9 % [facility] LABORATORY Neutr Abs (ANC) 3.01 1.70 - [facility] 6.10 [facility] x10(3)/[facility] LABORATORY Lymphocytes % 11.3 % [facility] LABORATORY Lymphocytes Abs 0.5 (L) 0.9 - 3.2 [facility] x10(3)/[facility] LABORATORY Monocytes % 10.4 % [facility] LABORATORY Monocyte Abs 0.5 0.3 - 0.9 [facility] x10(3)/[facility] LABORATORY Eosinophils % 9.3 % [facility] LABORATORY Eosinophils Abs 0.4 0.0 - 0.4 [facility] x10(3)/[facility] LABORATORY Basophils % 1.1 % [facility] LABORATORY Basophils Abs 0.0 0.0 - 0.1 [facility] x10(3)/[facility] LABORATORY Immature Gran % 0.00 % [facility] LABORATORY Comment: Immature granulocytes(IG's)percentage an d absolute count will include metamyelocytes, myelocytes, and promyelo cytes. Blood smears from CBCs yielding IG's will be scanned manually for concor dance. If this scan disagrees with the automated IG or if promyelocytes are not ed, a manual differential will be performed. Tamara Gran Abs 0.00 0.00 - 0.04 x10(3)/[facility] Y [facility] LABORATORY Specimen Anatomical Collection Method Collection Time Receive d Time (Source) Location / / Volume Laterality Blood specimen 08/24/2020 9:32 AM 021 9:41 (specimen) EDT AM EDT Resulting Agency Comment Spec In Lab Lea Villavicencio MD HEMATOLOGY ORDERABLES Performing Organization Address City/State/[place] [address] (ABNORMAL) Hemogram (08/24/2020 9:32 AM EDT) [facility] gist Method Time Signature WBC 4.4 4.0 - 9.5 [facility] LABORATORY RBC 3.63 (L) 4.58 - [place] 5.54 [facility] x10(6)/[facility] LABORATORY Hemoglobin 11.8 (L) 13.7 - [facility] 16.5 gm/dL [facility] LABORATORY Hematocrit 36.7 (L) 40.5 - [facility] 48.5 % [facility] LABORATORY MCV 101.1 (H) 82.9 - [facility] [place] 93.1 [facility] LABORATORY MCH 32.5 (H) 27.5 - [place] 32.1 pg [facility] LABORATORY MCHC 32.2 32.0 - [place] 35.7 gm/dL [facility] LABORATORY Platelets 62 (L) 145 - 357 [facility] x10(3)/[facility] LABORATORY RDWSD 58.4 (H) 36.0 - [place] 45.0 [facility] LABORATORY RDWCV 15.5 (H) 11.4 - [facility] [place] 13.8 % [facility] LABORATORY MPV 11.4 7.6 - 12.9 [facility] nRBC % Auto 0.0 % [facility] LABORATORY nRBC Abs Auto 0.000 0.000 - [facility] [place] 0.000 [facility] x10(3)/[facility] LABORATORY Specimen Anatomical Collection Method Collection Time Receive d Time (Source) Location / / Volume Laterality Blood specimen 08/24/2020 9:32 AM 021 9:41 (specimen) EDT AM EDT Resulting Agency Comment Spec In Lab Lea Villavicencio MD HEMATOLOGY ORDERABLES Performing Organization Address City/State/ZIP Code Phon e Number [place] [address] Vitamin D, 25-Hydroxy (08/24/2020 9:32 AM EDT) Patholo gist Method Time Signature 25-OH Vit D 44 21 - 100 [place] Total ng/mL [facility] LABORATORY 25-OH Vit D Sufficient [facility] LABORATORY Specimen Anatomical Collection Method Collection Time Receive d Time (Source) Location / / Volume Laterality Blood specimen 08/24/2020 9:32 AM 021 9:41 (specimen) EDT AM EDT Resulting Agency Comment Spec In Lab Lea Villavicencio MD CHEMISTRY ORDERABLES Performing Organization Address City/[facility]/ZIP Code Phon e Number [address] PTH (08/24/2020 9:32 AM EDT) P athologist Signature PTH 56 15 - 65 [facility] [place] pg/mL [facility] LABORATORY Specimen Anatomical Collection Method Collection Time Receive d Time (Source) Location / / Volume Laterality Blood specimen 08/24/2020 9:32 AM 021 9:41 (specimen) EDT AM EDT Resulting Agency Comment Spec In Lab Lea Villavicencio MD CHEMISTRY ORDERABLES Performing Organization Address City/[facility]/[place] [address] Uric acid (08/24/2020 9:32 AM EDT) P athologist Signature Uric Acid 4.5 3.5 - 8.5 [facility] [place] mg/dL [facility] LABORATORY Specimen Anatomical Collection Method Collection Time Receive d Time (Source) Location / / Volume Laterality Blood specimen 08/24/2020 9:32 AM 021 9:41 (specimen) EDT AM EDT Resulting Agency Comment Spec In Lab Lea Villavicencio MD CHEMISTRY ORDERABLES Performing Organization Address City/[facility]/[place] [address] Albumin Level (08/24/2020 9:32 AM EDT) P athologist Signature Albumin 3.4 3.2 - 5.2 [facility] gm/dL [facility] LABORATORY Specimen Anatomical Collection Method Collection Time Receive d Time (Source) Location / / Volume Laterality Blood specimen 08/24/2020 9:32 AM 021 9:41 (specimen) EDT AM EDT Resulting Agency Comment Spec In Lab Lea Villavicencio MD CHEMISTRY ORDERABLES Performing Organization Address City/[facility]/ZIP Code Phon e Number [address] Phosphorus (08/24/2020 9:32 AM EDT) athologist Signature Phosphorus 3.6 2.5 - 4.5 [facility] mg/dL [facility] LABORATORY Specimen Anatomical Collection Method Collection Time Receive d Time (Source) Location / / Volume Laterality Blood specimen 08/24/2020 9:32 AM 021 9:41 (specimen) EDT AM EDT Resulting Agency Comment Spec In Lab Lea Villavicencio MD CHEMISTRY ORDERABLES Performing Organization Address City/[facility]/ZIP [facility] Phon e Number [address] (ABNORMAL) Basic Metabolic Panel (non-fasting) (08/24/2020 9:32 AM EDT) athologist Signature Glucose Lvl 83 65 - 199 [facility] mg/dL [facility] LABORATORY Comment: Diabetes: >=200 mg/dL plus symp toms BUN 44 (H) 10 - 20 mg/dL [facility] LABORATORY Creatinine 1.59 (H) 0.80 - 1.50 mg/dL [facility] LABORATORY Sodium 143 135 - 145 mmol/L [facility] LABORATORY Potassium 4.1 3.5 - 5.0 mmol/L [facility] LABORATORY Comment: Please note: ??Patients with WBC >100,00 0 may have falsely elevated Potassium levels. ??For accurate Potassium quantif ication in these patients send serum separator tube (gold top) for subsequent determinations. ??Contact the Clinical Chemistry Laboratory if there are any qu estions. Chloride 107 98 - 107 mmol/L [facility] LABORATORY CO2 25 22 - 31 mmol/L [facility] LABORATORY Anion Gap 11 5 - 15 mmol/L [facility] LABORATORY Calcium 8.9 8.5 - 10.5 mg/dL [facility] LABORATORY Estimated GFR 46 (L) >=60 mL/min/1.73 m?? [facility] LABORATORY Comment: This patient? s estimated glomerular filtration rate (eGFR) is between 46 mL/min/1.73 m2 (patients with less muscl e mass per kg body weight) and 53 mL/min/1.73 m2 (patients with more muscl e mass per kg body weight) as determined by the CKD-EPI equation. Asse ssment of eGFR is not appropriate when creatinine concentrations are rapidly ch anging. For clinical decisions where creatinine clearance will affect therapy , a 24-hour urine creatinine clearance may be advised. Assignment of CKD stage 1 - 5 for patien ts with an eGFR near the transition point between stages may be based on cli nical assessment of muscle mass and symptoms in addition to eGFR. Specimen Anatomical Collection Method Collection Time Receive d Time (Source) Location / / Volume Laterality Blood specimen 08/24/2020 9:32 AM 021 9:41 (specimen) EDT AM EDT Resulting Agency Comment Spec In Lab Lea Villavicencio MD CHEMISTRY ORDERABLES Performing Organization Address City/State/[place] [address] documented in this encounter Visit Diagnoses Diagnosis Stage 3b chronic kidney disease documented in this encounter Care Teams Still Operator Relationship Specialty Start Date End Date Jazmine Baer MD PCP - General 11/07/10 [address] [place] [address] documented as of this encounter
--- OUTSIDE RECORDS SUMMARY | 2022-04-11 10:47 | XMS_ITS | Encounter Summary ---
:1960 [place] [address] Care Team Providers Name Role Phone Jazmine Baer MD Primary Care Provider Encounter Details Date Type Department Care Team Description 03/17/2021 External Results [place]emat[place] [phone] Social History Tobacco Use Types Packs/Day [...] Richi Blackmon MD [facility] RHEUMATOLOGY [place], [place] [address] (Wo rk) Scheduled Procedures Name Priority Associated Diagnoses Date/Time EGD, UPPER GI ENDOSCOPY Family hx of colon cance r COLONOSCOPY, DIAGNOSTIC Family hx of colon cance r documented as of this encounter Procedures Procedure Name Priority Date/Time Associated Diagnosis Comme nts CBC (WITH DIFF) Routine 12/23/2020 7:15 AM Result s for this EDT procedure are i n the results section. documented in this encounter Results (ABNORMAL) CBC (with Diff) (12/23/2020 7:15 AM EDT) athologist Signature WBC 4.56 EXTERNAL LAB Hemoglobin 12.2 EXTERNAL LAB (EXTERNAL/A BN) Hematocrit 38.8 EXTERNAL LAB (EXTERNAL/A BN) Platelets 71 EXTERNAL LAB (EXTERNAL/A BN) Specimen (Source) Anatomical Collection Method Collection Time Re ceived Time Location / / Volume Laterality Blood 12/23/2020 7:15 AM EDT Historical Provider HEMATOLOGY ORDERABLES Performing Organization Address City/State/ZIP Code Phon e Number EXTERNAL FACILITY EXTERNAL LAB documented in this encounter Visit Diagnoses Not on filedocumented in this encounter Care Teams Blue Leather Sorter Relationship Specialty Start Date End Date Jazmine Baer MD PCP - General 11/07/10 [address] [place] [address] documented as of this encounter
--- OUTSIDE RECORDS SUMMARY | 2022-04-11 10:47 | XMS_ITS | Encounter Summary ---
:1960 [place] [address] Care Team Providers Name Role Phone Jazmine Baer MD Primary Care Provider Encounter Details Date Type Department Care Team Description 09/19/2021 Telephone Hematology [place] [phone] Social History Tobacco Use Types Packs/Day Years Used Date Never Smoker Smokeless Tobacco: Never Used Alcohol Use Standard Drinks/Week Comments No 0 (1 standard drink = 0.6 oz pure alcoho l) Sex Assigned at Date Recorded Not on file documented as of this encounter Miscellaneous Notes Telephone Encounter - Jessica Santos RN - 09/19/2021 4:15 PM EDT RN received request from Karen Lugo NP to enter labs dated 09/18/21 from [facility] into patient's chart. Labs entered as requested. documented in this encounter Plan of Treatment Upcoming Encounters Date Type Specialty Care Team Description 06/19/2022 Office Visit Rheumatology Richi Blackmon MD [facility] [address] RHEUMATOLOGY [place], [place] [address] (Wo rk) Scheduled Procedures Name Priority Associated Diagnoses Date/Time EGD, UPPER GI ENDOSCOPY Family hx of colon cance r COLONOSCOPY, DIAGNOSTIC Family hx of colon cance r documented as of this encounter Procedures Procedure Name Priority Date/Time Associated Diagnosis Comme nts CREATININE Routine 09/18/2021 7:17 AM Results f or this EDT procedure are i n the results section. IRON AND TIBC Routine 09/18/2021 7:17 AM Results for this EDT procedure are i n the results section. CBC (WITH DIFF) Routine 09/18/2021 7:17 AM Result s for this EDT procedure are i n the results section. documented in this encounter Results (ABNORMAL) CBC (with Diff) (09/18/2021 7:17 AM EDT) Analysis Performed At Patho logist Time Signature WBC 3.96 (A) 4.4 - 10.8 EXTERNAL LAB Hemoglobin 11.6 (A) 13.5 - EXTERNAL LAB 17.5 Hematocrit 37.0 (A) 40.0 - EXTERNAL LAB 50.0 Platelets 62 (A) 130 - 400 EXTERNAL LAB Neutr Abs (ANC) 2.5 1.2 - 6.7 EXTERNAL LAB Specimen (Source) Anatomical Collection Method Collection Time Re ceived Time Location / / Volume Laterality Blood 09/18/2021 7:17 AM EDT Historical Provider HEMATOLOGY ORDERABLES Performing Organization Address City/State/ZIP Code Phon e Number EXTERNAL FACILITY EXTERNAL LAB (ABNORMAL) Iron and TIBC (09/18/2021 7:17 AM EDT) P athologist Signature Iron 59 (A) 65 - 175 EXTERNAL LAB TIBC 292 250 - 450 EXTERNAL LAB Iron Saturation 20 20 - 55 EXTERNAL LAB Specimen (Source) Anatomical Collection Method Collection Time Re ceived Time Location / / Volume Laterality Blood 09/18/2021 7:17 AM EDT Historical Provider CHEMISTRY ORDERABLES Performing Organization Address City/State/ZIP Code Phon e Number EXTERNAL FACILITY EXTERNAL LAB (ABNORMAL) Creatinine (09/18/2021 7:17 AM EDT) P athologist Signature Creatinine 1.9 (A) 0.7 - 1.3 EXTERNAL LAB Specimen (Source) Anatomical Collection Method Collection Time Re ceived Time Location / / Volume Laterality Blood 09/18/2021 7:17 AM EDT Historical Provider CHEMISTRY ORDERABLES Performing Organization Address City/State/ZIP Code Phon e Number EXTERNAL FACILITY EXTERNAL LAB documented in this encounter Visit Diagnoses Not on filedocumented in this encounter Care Teams Repeat Chief Relationship Specialty Start Date End Date Jazmine Baer MD PCP - General 11/07/10 [address] [place] [address] documented as of this encounter
--- OUTSIDE RECORDS SUMMARY | 2022-04-11 10:47 | XMS_ITS | Encounter Summary ---
:1960 Author Organization [facility] Address [facility] [place] [address] Care Team Providers Name Role Phone Jazmine Baer MD Primary Care Provider Encounter Details Date Type Department Care Team Description 05/02/2021 Office Visit Nephrology Hypertension Lea Villavicencio MD [facility] [place] [address] Stage 3a chronic kidney disease; at [facility] [employer], A None Hyperuricemia; [facility] Gout, uns pecified cause, unspecified chronicity, unspecified site; Drive GUY (acute kidney injury); [place] [address] Hypertension, unspecified ty pe; [phone] Type 2 diabetes mellitus with diabetic nephropathy, without long-term current use of insulin; Obesity, unspec ified classification, unspecified obesity type, unspecified whether serious comorbidity present Social History Tobacco Use Types Packs/Day Years Used Date Never Smoker Smokeless Tobacco: Never Used Alcohol Use Standard Drinks/Week Comments No 0 (1 standard drink = 0.6 oz pure alcoho l) Sex Assigned at Date Recorded Not on file documented as of this encounter Last Filed Vital Signs Vital Sign Reading Time Taken Comments Blood Pressure 157/79 05/02/2021 11:31 AM EST Pulse 74 05/02/2021 11:31 AM EST Temperature - - Respiratory Rate - - Oxygen Saturation - - Inhaled Oxygen Concentration - - Weight 131.8 kg (290 lb 9.6 oz) 05/02/2021 11:31 AM EST Height - - Body Mass Index 42.91 03/17/2021 10:39 AM EDT documented in this encounter Patient Instructions Patient InstructionsOralia Thomas RN - 05/02/2021 11:20 AM EST Your kidney function is looking pretty stable. Your hemoglobin has gone up; it may be beneficial to have a sleep study done to see if you have sleep apnea. Dr. Villavicencio doesn't think that your current symptoms are related to your kidney function; is it more likely related to your myopathy and your more recent weight gain. With your decrease in activity, reducing portions a little at a time may assist with this goal. Call if you feel differently (consistent symptoms of nausea, vomiting, little appeal for food, itching, change in sleep patterns, worsening energy levels, shortness of breath). These are some of the signs of worsening kidney function. We will see you sooner if you are not feeling well. Please call. Oralia Thomas RN Chronic Kidney Disease Nurse Specialist at [facility]. documented in this encounter Progress Notes Lea Villavicencio MD - 05/02/2021 11:20 AM EST Images from the original note were not included. [facility] [address] [place] [address] Reason for Clinic Visit: Systems Review and CKD management. 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 Bucky is doing well. COnitnues intermittent IVIG. Recent rapid weight gain - working on portion control and exercise for weight loss. No specific uremic symptoms as detailed History obtained by RN Specialist: Last seen in clinic on 08/24/20, eGFR 46. Continues allopurinol for gout; no recent flares, hasn't needed colchicine. Recently hospitalized at [facility] (04/15-) and had a lot of his cardiac medications changed. A1c was down to 4.8 when he was in the hospital; he also had a djustments to his Lantus and Humalog. Patient had a stress test last week and is waiting to discuss the results. Review of Systems: Sign/Symptom Comments Activity level/fatigue: Minimal - takes a lot longer to do things and he has to stop in between because he gets tired more easily Change in sleep patterns: Since the furosemide increase, he is up every 2-3 hours Nocturia: Yes - at least three times, usually can fall back to sleep afterward Appetite changes: Appetite is also very minimal; he is not very hungry at all. Food aversions: No Nausea: None Vomiting: None Bowels: No issues Edema: No pitting Shortness of breath: About the same as before; didn't bother him today walking to the clinic but he has difficulty walking around in stores; he needs to stop and rest Orthopnea/PND: No PND; 2 pillows Muscle Cramping: No Cold intolerance: Yes, feels especially cold Itching: None Bruising/bleeding: Nothing unusual Mental Status Changes: No change Recent Home Blood Pressure Control: 134/80 Recent Lipid Management: Allergic to statins Recent Diabetic Management Checks twice daily; 115 this morning Additional CCM Comments: How's your health been [...] Kidney Beginnings, Decision Aid:??none given 12/25 - AAKP Nutrition Counter and Potassium Content of Foods [...] Reactions ??? Methotrexate Hives, Itching and Rash ??? Morphine Itching ??? Ompshma-Mia-Rdh Reductase Inhibitors Myopathy MEDICATIONS: Current Outpatient Medications Medication Sig Dispense Refill ??? canagliflozin (Invokana) 100 mg Tablet Take [...] ??? carvediloL (Coreg) 3.125 mg Tablet Take 3.125 mg by mouth 2 times daily (with meals). ??? ondansetron (Zofran) 4 mg Tablet Take 4 mg by mouth every 8 hours as needed for Nausea. ??? BD Ultra-Fine Short Pen Needle 31 gauge x 5/16 Needle Inject 1 each subcutaneously 5 times daily. ??? allopurinoL (Zyloprim) 100 mg Tablet Take 400 mg by mouth daily. ??? darbepoetin matt in polysorbat (ARANESP, IN POLYSORBATE, INJ) Inject as directed every 14 days. ??? HUMALOG KWIKPEN 100 unit/mL Insulin Pen 35-40 Units. 3 ??? ONETOUCH ULTRA TEST Strip 1 each by Other route 3 times daily. 3 ??? IMMUNE GLOBULIN,GAMMA,IGG, (IMMUNE GLOBULIN, HUMAN,, IGG, IV) 1,200 mg intravenously twice monthly. ??? insulin glargine (LANTUS SOLOSTAR) Insulin Pen Inject 30-55 Units subcutaneously 2 times daily. ??? furosemide (LASIX) 20 mg Tablet Take 1 tablet by mouth daily. 30 tablet 12 ??? multivitamin Capsule Take 1 capsule by mouth daily. No current facility-administered medications for this visit. PHYSICAL EXAM: Vitals: 05/02/21 1131 BP: 157/79 Pulse: 74 Weight: 131.8 kg (290 lb 9.6 oz) Body mass index is 42.91 kg/m??. General appearance Plethoric, obese, Appears well, alert Head Atraumatic Eyes No pallor, no scleral icterus ENT Oropharynx clear. No exudate. Neck No JVD Respiratory CTA bilaterally. No [...] the past 336 hour(s)) PTH Collection Time: 05/02/21 10:16 AM Result Value Ref Range PTH 85 (H) 15 - 65 pg/mL Uric acid Collection Time: 05/02/21 10:16 AM Result Value Ref Range Uric Acid 4.4 3.5 - 8.5 mg/dL Albumin Level Collection Time: 05/02/21 10:16 AM Result Value Ref Range Albumin 3.7 3.2 - 5.2 g/dL Phosphorus Collection Time: 05/02/21 10:16 AM Result Value Ref Range Phosphorus 3.8 2.5 - 4.5 mg/dL Basic Metabolic Panel (non-fasting) Collection Time: 05/02/21 10:16 AM Result Value Ref Range Glucose Lvl 137 65 - 199 mg/dL BUN 53 (H) 10 - 20 mg/dL Creatinine 1.78 (H) 0.80 - 1.50 mg/dL Sodium 136 135 - 145 mmol/L Potassium 4.7 3.5 - 5.0 mmol/L Chloride 99 98 - 107 mmol/L CO2 26 22 - 31 mmol/L Anion Gap 11 5 - 15 mmol/L Calcium 9.7 8.5 - 10.5 mg/dL Estimated GFR 40 (L) >=60 mL/min/1.73 m?? Hemogram Collection Time: 05/02/21 10:16 AM Result Value Ref Range WBC 6.6 4.0 - 9.5 x10(3)/mcL RBC 4.68 4.58 - 5.54 x10(6)/mcL Hemoglobin 15.3 13.7 - 16.5 g/dL Hematocrit 47.6 40.5 - 48.5 % MCV 101.7 (H) 82.9 - 93.1 fL MCH 32.7 (H) 27.5 - 32.1 pg MCHC 32.1 32.0 - 35.7 g/dL Platelets 115 (L) 145 - 357 x10(3)/mcL RDWSD 55.0 (H) 36.0 - 45.0 fL RDWCV 14.6 (H) 11.4 - 13.8 % MPV 11.4 7.6 - 12.9 fL nRBC % Auto 0.0 % nRBC Abs Auto 0.000 0.000 - 0.000 x10(3)/mcL Differential, Automated Collection Time: 05/02/21 10:16 AM Result Value Ref Range Neutrophils % 69.6 % Neutr Abs (ANC) 4.60 1.70 - 6.10 x10(3)/mcL Lymphocytes % 10.9 % Lymphocytes Abs 0.7 (L) 0.9 - 3.2 x10(3)/mcL Monocytes % 9.7 % Monocyte Abs 0.6 0.3 - 0.9 x10(3)/mcL Eosinophils % 8.0 % Eosinophils Abs 0.5 (H) 0.0 - 0.4 x10(3)/mcL Basophils % 1.5 % Basophils Abs 0.1 0.0 - 0.1 x10(3)/mcL Immature Gran % 0.30 % Tamara Gran Abs 0.02 0.00 - 0.04 x10(3)/mcL Protein/Creatinine Ratio, urine Collection Time: 05/02/21 10:17 AM Result Value Ref Range U Creatinine 23 mg/dL U Protein Ran 28 (H) 0 - 12 mg/dL Prot/Cre Ratio 1.2 ratio ASSESSMENT AND PLAN: Problem: Chronic Kidney Disease Estimated GFR (mL/min/1.73 m??) Date Value 05/02/2021 40 (L) 03/03/2021 43 (L) 08/29/2020 48 (L) CKD Stage 3a Potassium Date Value Ref Range Status 05/02/2021 4.7 3.5 - 5.0 mmol/L Final Comment: Please note: Patients with WBC >100,000 may have falsely elevated Potassium levels. For accurate Potassium quantification in these patients send serum separator tube (gold top) for subsequent determinations. Contact the Clinical Chemistry Laboratory if there are any questions. 03/03/2021 4.1 3.5 - 5.0 mmol/L Final Comment: Please note: Patients with WBC >100,000 may have falsely elevated Potassium levels. For accurate Potassium quantification in these patients send serum separator tube (gold top) for subsequent determinations. Contact the Clinical Chemistry Laboratory if there are any questions. 08/29/2020 4.3 3.5 - 5.0 mmol/L Final Comment: Please note: Patients with WBC >100,000 may have falsely elevated Potassium levels. For accurate Potassium quantification in these patients send serum separator tube (gold top) for subsequent determinations. Contact the Clinical Chemistry Laboratory if there are any questions. CO2 (mmol/L) Date Value 05/02/2021 26 03/03/2021 25 08/29/2020 25 Not on bicarb Uric Acid Date Value 05/02/2021 4.4 mg/dL 08/24/2020 4.5 mg/dL 04/18/2020 4.4 on allopurinol 400 mg daily Standard Recommendations: Reduce rate of progression. Education for CKD stage- specific issues. RN Notes: Your kidney function is looking pretty stable. Your hemoglobin has gone up; it may be beneficial to have a sleep study done to see if you have sleep apnea. Dr. Villavicencio doesn't think that your current symptoms are related to your kidney function; is it more likely related to your myopathy and your more recent weight gain. With your decrease in activity, reducing portions a little at a time may assist with this goal. /FLORAL ASSOCIATE A/P: Problem: Management of Anemia related to Chronic Kidney Disease (CKD) Hemoglobin (g/dL) Date Value 05/02/2021 15.3 Goal: 9.5-10.9 g/dl Ferritin (ng/mL) Date Value 08/29/2020 1,177 (H) Goal: >100ng/ml Iron Saturation (%) Date Value 03/03/2021 25 Goal: >20% GREGOR: Yes; start date: ; last dose: Drug/Dose/Frequency: Aranesp 60 mcg every two weeks for Hgb < 12 Where administered (clinic/hospital/home): IV Iron replacement therapy (Venofer), Last dose: 300mg dose monthly for iron saturation < 20. Receives dosing for both through [facility]. RN Notes: Give Aranesp according to Aranesp guidelines to attain Hemoglobin levels up to 10.9. If Hgb falls below 9.5 g/dl or rises over 10.9g/dl the dose or the frequency of the Aranesp should be adjusted. MD/FLORAL ASSOCIATE A/P: Problem: Hypertension BP: (157)/(79) Goal (if urine alb:cr ratio is <30mg/g): </= 140/90 Goal (if urine alb:cr ratio is >30mg/g): </= 130/80 Standard Recommendations: Sodium intake < 2 Gm per day. RN Notes: No changes MD/FLORAL ASSOCIATE A/P: Problem: Proteinuria Prot/Cre Ratio (ratio) Date Value 05/02/2021 1.2 Goal: <0.2mg/mg RN Notes: No changes MD/FLORAL ASSOCIATE A/P: Problem: Bone and mineral metabolism 25-OH Vit D Total (ng/mL) Date Value 08/24/2020 44 03/15/2020 41 03/31/2019 41 Not on vitamin D PTH (pg/mL) Date Value 05/02/2021 85 (H) 08/24/2020 56 08/13/2018 89 (H) Not on calcitriol Goal: Stage 3: 35-70 pg/ml Stage 4: 70-110 pg/ml Stage 5: 150-300 pg/ml Phosphorus Date Value 05/02/2021 3.8 mg/dL 08/24/2020 3.6 mg/dL 04/18/2020 3.1 Not on sevelamer/calcium carbonate (Tums)/calcium acetate Goal: 2.7-4.6mg/dl Calcium (mg/dL) Date Value 05/02/2021 9.7 03/03/2021 8.9 08/29/2020 8.8 Not on calcium carbonate Goal: 8.5-10.5mg/dl RN Notes: No changes MD/FLORAL ASSOCIATE A/P: Problem: Nutrition Albumin Date Value 05/02/2021 3.7 g/dL 03/03/2021 3.3 g/dL 08/29/2020 3.4 gm/dL Goal: >/= 4.0 gm/dl Body mass index is 42.91 kg/m??. 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 Bucky is doing well. Conitnues intermittent IVIG - encouraged adequate hydration prior to infusionsto prevent IVIG-related tubular toxicity. Recent rapid weight gain - working on portion control and exercise for weight loss. No specific uremic symptoms as detailed Return to CKD clinic: 6 months documented in this encounter Plan of Treatment Upcoming Encounters Date Type Specialty Care Team Description 06/19/2022 Office Visit Rheumatology Richi Blackmon MD [facility] [place] [address] ( rk) Scheduled Procedures Name Priority Associated Diagnoses Date/Time EGD, UPPER GI ENDOSCOPY Family hx of colon cance r COLONOSCOPY, DIAGNOSTIC Family hx of colon cance r documented as of this encounter Visit Diagnoses Diagnosis Stage 3a chronic kidney disease Hyperuricemia Other abnormal blood chemistry Gout, unspecified cause, unspecified chr onicity, unspecified site GUY (acute kidney injury) Acute kidney failure, unspecified Hypertension, unspecified type Type 2 diabetes mellitus with diabetic n ephropathy, without long-term current use of insulin Obesity, unspecified classification, uns pecified obesity type, unspecified whether serious comorbidity present documented in this encounter Care Teams Claim Representative Relationship Specialty Start Date End Date Jazmine Baer MD PCP - General 11/07/10 [address] [place] [address] documented as of this encounter
--- OUTSIDE RECORDS SUMMARY | 2022-04-11 10:47 | XMS_ITS | Encounter Summary ---
:1960 Author Organization [place] [address] Care Team Providers Name Role Phone Jazmine Baer MD Primary Care Provider Encounter Details Date Type Department Care Team Description 02/14/2021 Orders Only Nephrology Hypertension Pb Farah 3a chronic at [facility] [place] [address] Social History Tobacco Use Types Packs/Day Years Used Date Never Smoker Smokeless Tobacco: Never Used Alcohol Use Standard Drinks/Week Comments No 0 (1 standard drink = 0.6 oz pure alcoho l) Sex Assigned at Date Recorded Not on file documented as of this encounter Plan of Treatment Upcoming Encounters Date Type Specialty Care Team Description 06/19/2022 Office Visit Rheumatology Richi Blackmon MD [facility] DR RHEUMATOLOGY [place], [place] [address] (Wo rk) Scheduled Procedures Name Priority Associated Diagnoses Date/Time EGD, UPPER GI ENDOSCOPY Family hx of colon cance r COLONOSCOPY, DIAGNOSTIC Family hx of colon cance r documented as of this encounter Results (ABNORMAL) Protein/Creatinine Ratio, urine (05/02/2021 10:17 AM EST) P athologist Signature U Creatinine 23 mg/dL [facility] U Protein Ran 28 (H) 0 - 12 [facility] mg/dL [facility] Prot/Cre Ratio 1.2 ratio [facility] Specimen Anatomical Collection Method Collection Time Receive d Time (Source) Location / / Volume Laterality Urine 05/02/2021 10:17 05/02/2021 AM EST 10:25 AM EST Resulting Agency Comment Spec In Lab Lea Villavicencio MD URINE ORDERABLES Performing Organization Address City/State/[place] [address] (ABNORMAL) PTH (05/02/2021 10:16 AM EST) P athologist Signature PTH 85 (H) 15 - 65 [facility] pg/mL [facility] Specimen Anatomical Collection Method Collection Time Receive d Time (Source) Location / / Volume Laterality Blood 05/02/2021 10:16 05/02/2021 AM EST 10:30 AM EST Resulting Agency Comment Spec In Lab Lea Villavicencio MD CHEMISTRY ORDERABLES Performing Organization Address City/[facility]/[place]IP [place] [address] Uric acid (05/02/2021 10:16 AM EST) P athologist Signature Uric Acid 4.4 3.5 - 8.5 [facility] mg/dL [facility] Specimen Anatomical Collection Method Collection Time Receive d Time (Source) Location / / Volume Laterality Blood 05/02/2021 10:16 05/02/2021 AM EST 10:30 AM EST Resulting Agency Comment Spec In Lab Lea Villavicencio MD CHEMISTRY ORDERABLES Performing Organization Address City/State/[place] [address] Albumin Level (05/02/2021 10:16 AM EST) P athologist Signature Albumin 3.7 3.2 - 5.2 [facility] g/dL [facility] Specimen Anatomical Collection Method Collection Time Receive d Time (Source) Location / / Volume Laterality Blood 05/02/2021 10:16 05/02/2021 AM EST 10:30 AM EST Resulting Agency Comment Spec In Lab Lea Villavicencio MD CHEMISTRY ORDERABLES Performing Organization Address City/State/ZIP Code [place] [address] [facility] [address] Phosphorus (05/02/2021 10:16 AM EST) P athologist Signature Phosphorus 3.8 2.5 - 4.5 [facility] mg/dL [facility] Specimen Anatomical Collection Method Collection Time Receive d Time (Source) Location / / Volume Laterality Blood 05/02/2021 10:16 05/02/2021 AM EST 10:30 AM EST Resulting Agency Comment Spec In Lab Lea Villavicencio MD CHEMISTRY ORDERABLES Performing Organization Address City/State/ZIP Code Phon e Number [place] [phone] [facility] [address] (ABNORMAL) Basic Metabolic Panel (non-fasting) (05/02/2021 10:16 AM EST) athologist Signature Glucose Lvl 137 65 - 199 [facility] mg/dL [facility] Comment: Diabetes: >=200 mg/dL plus symp toms BUN 53 (H) 10 - 20 mg/dL [facility] Creatinine 1.78 (H) 0.80 - 1.50 mg/dL [facility] Sodium 136 135 - 145 mmol/L [facility] Potassium 4.7 3.5 - 5.0 mmol/L [facility] Comment: Please note: ??Patients with WBC >100,00 0 may have falsely elevated Potassium levels. ??For accurate Potassium quantif ication in these patients send serum separator tube (gold top) for subsequent determinations. ??Contact the Clinical Chemistry Laboratory if there are any qu estions. Chloride 99 98 - 107 mmol/L [facility] CO2 26 22 - 31 mmol/L [facility] Anion Gap 11 5 - 15 mmol/L [facility] Calcium 9.7 8.5 - 10.5 mg/dL [facility] Estimated GFR 40 (L) >=60 mL/min/1.73 m?? [facility] Comment: This patient? s estimated glomerular filtration rate (eGFR) is between 40 mL/min/1.73 m2 (patients with less muscl e mass per kg body weight) and 46 mL/min/1.73 m2 (patients with more muscl e [...] (Source) Location / / Volume Laterality Blood 05/02/2021 10:16 05/02/2021 AM EST 10:30 AM EST Resulting Agency Comment Spec In Lab Lea Villavicencio MD CHEMISTRY ORDERABLES Performing Organization Address City/State/[place] [address] documented in this encounter Visit Diagnoses Diagnosis Stage 3a chronic kidney disease documented in this encounter Care Teams Svp Business Development Relationship Specialty Start Date End Date Jazmine Baer MD PCP - General 11/07/10 [address] [place] [address] documented as of this encounter
--- OUTSIDE RECORDS SUMMARY | 2022-04-11 10:47 | XMS_ITS | Encounter Summary ---
:1960 Author Organization [facility] [place] [address] Care Team Providers Name Role Phone Jazmine Baer MD Primary Care Provider Encounter Details Date Type Department Care Team Description 08/29/2020 Hospital Encounter Hematology and Bicytop enia; Oncology at [facility] Iron deficiency anemia due t o chronic blood loss; [facility] Stage 3 c hronic kidney disease; Drive 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 [address] Social History Tobacco Use Types Packs/Day Years Used Date Never Smoker Smokeless Tobacco: Never Used Alcohol Use Standard Drinks/Week Comments No 0 (1 standard drink = 0.6 oz pure alcoho l) Sex Assigned at Date Recorded Not on file documented as of this encounter Medications at Time of Discharge Medication Sig Dispensed Refills Start Date End Date BD Ultra-Fine Short Pen Inject 1 each 0 0 Needle 31 gauge x 5/16 subcutaneously 5 Needle times daily. allopurinoL (Zyloprim) Take 400 mg by mouth 0 100 mg Tablet daily. darbepoetin matt in Inject as directed 0 polysorbat (ARANESP, IN every 14 days. POLYSORBATE, INJ) HUMALOG KWIKPEN 100 20 Units 3 times 3 02/16/2017 unit/mL Insulin Pen daily (with meals). ONETOUCH ULTRA TEST Strip 1 each by Other route 3 10/23/2016 3 times daily. IMMUNE 1,200 mg 0 GLOBULIN,GAMMA,IGG, intravenously twice (IMMUNE GLOBULIN, HUMAN,, monthly. IGG, IV) insulin glargine (Lantus) Inject 40 Units 0 100 unit/mL (3 mL) pen subcutaneously nightly. furosemide (LASIX) 20 mg Take 1 tablet by 30 tablet 12 03/25 TabletIndications: mouth daily. Myopathy multivitamin Capsule Take 1 capsule by 0 mouth daily. ondansetron (Zofran) 4 mg Take 4 mg by mouth 0 05/02/2021 Tablet every 8 hours as needed. sodium chloride 0.9% SolP Inject 125 mg into 0 05/02/2021 100 mL with the vein once. ONCE A methylPREDNISolone sodium MONTH with 1st IVIG succinate (PF) 1,000 mg/8 infusion. mL SolR 500 mg 'SOLUMEDROL' metoprolol succinate Take 50 mg by mouth 0 201705/02/2021 (TOPROL-XL) 50 mg Tablet daily. Sustained Release 24 hr colchicine (COLCRYS) 0.6 Take 0.6 mg by mouth 0 05/02/2021 mg Tablet daily. Per direction for acuet gout attack terazosin (HYTRIN) 5 mg Take 1 capsule by 3 08/0105/02/2021 Capsule mouth nightly. lisinopril-hydrochlorothi Take 2 tablets by 0 05/02/2021 azide mouth daily. (PRINZIDE;ZESTORETIC) 20-12.5 mg per tablet documented as of this encounter Plan of Treatment Upcoming Encounters Date Type Specialty Care Team Description 06/19/2022 Office Visit Rheumatology Richi Blackmon MD [facility] DR RHEUMATOLOGY [place], [place] [address] (Wo rk) Scheduled Procedures Name Priority Associated Diagnoses Date/Time EGD, UPPER GI ENDOSCOPY Family hx of colon cance r COLONOSCOPY, DIAGNOSTIC Family hx of colon cance r documented as of this encounter Procedures Procedure Name Priority Date/Time Associated Comments Diagnosis HEMOGRAM STAT 08/29/2020 10:01 Bicytopenia Results for this AM EDT Iron deficiency procedure ar e in anemia due to the results chronic blood lo ss section. Stage 3 chronic kidney disease DIFFERENTIAL, STAT 08/29/2020 10:01 Bicytopenia Results for this AUTOMATED AM EDT Iron deficiency procedure ar e in anemia due to the results chronic blood lo ss section. Stage 3 chronic kidney disease HC IRON BINDING STAT 08/29/2020 10:01 Bicytopenia Results for this CAPACITY AM EDT Iron deficiency procedure ar e in anemia due to the results chronic blood lo ss section. Stage 3 chronic kidney disease HC VENIPUNCTURE Routine 08/29/2020 10:01 Liver cirrhosis Resul ts for this AM EDT secondary to HORTON procedure are in the results section. HC CBC,PLT & AUTO DIFF STAT 08/29/2020 10:01 Bicytope ge AM EDT Iron deficiency anemia due to chronic blood lo ss Stage 3 chronic kidney disease HC FERRITIN, SERUM STAT 08/29/2020 10:01 Bicytopenia Results for this AM EDT Iron deficiency procedure ar e in anemia due to the results chronic blood lo ss section. Stage 3 chronic kidney disease COMPREHENSIVE Routine 08/29/2020 10:01 Liver cirrhosis Results for this METABOLIC PANEL AM EDT secondary to HORTON procedu re are in (NON-FASTING) the results section. documented in this encounter Results (ABNORMAL) Differential, Automated (08/29/2020 10:01 AM EDT) [facility] gist Method Time Signature Neutrophils % 63.1 % [facility] Neutr Abs (ANC) 2.52 1.70 - [facility] 6.10 [facility] x10(3)/[facility] LAB[facility]ATORY Lymphocytes % 13.8 % [facility] Lymphocytes Abs 0.6 (L) 0.9 - 3.2 [facility] x10(3)/[facility] LABORATORY Monocytes % 8.8 % [facility] Monocyte Abs 0.4 0.3 - 0.9 [facility] x10(3)/[facility] LABORATORY Eosinophils % 12.5 % [facility] Eosinophils Abs 0.5 (H) 0.0 - 0.4 [facility] x10(3)/[facility] LABORATORY Basophils % 1.5 % [facility] Basophils Abs 0.1 0.0 - 0.1 [facility] x10(3)/[facility] LABORATORY Immature Gran % 0.30 % [facility] Comment: Immature granulocytes(IG's)percentage an d absolute count will include metamyelocytes, myelocytes, and promyelo cytes. Blood smears from CBCs yielding IG's will be scanned manually for concor dance. If this scan disagrees with the automated IG or if promyelocytes are not ed, a manual differential will be performed. Tamara Gran Abs 0.01 0.00 - 0.04 x10(3)/[facility] Specimen Anatomical Collection Method Collection Time Receive d Time (Source) Location / / Volume Laterality Blood specimen 08/29/2020 10:01 1 (specimen) AM EDT 10:08 AM EDT Resulting Agency Comment Spec In Lab Noemy Grant APRN HEMATOLOGY ORDERABLES Performing Organization Address City/State/[place] [address] (ABNORMAL) Hemogram (08/29/2020 10:01 AM EDT) [facility] gist Method Time Signature WBC 4.0 4.0 - 9.5 [facility] x10(3)/[facility] LABORATORY RBC 3.63 (L) 4.58 [facility] 5.54 [facility] x10(6)/[facility]ORY Hemoglobin 11.6 (L) 13.7 - [facility] 16.5 gm/dL [facility] Hematocrit 36.9 (L) 40.5 - [facility] 48.5 % [facility] MCV 101.7 (H) 82.9 - [facility] 93.1 [facility] MCH 32.0 27.[address] [facility] 32.1 pg [facility] MCHC 31.4 (L) 32.0 - [facility] 35.7 gm/dL [facility] Platelets 79 (L) 145 - 357 [facility] x10(3)/[facility] LABORATORY RDWSD 58.4 (H) 36.0 - [facility] 45.0 [facility] LABORATORY RDWCV 15.6 (H) 11.4 - [facility] 13.8 % [facility] MPV 11.7 7.6 - 12.9 [facility] LABORATORY nRBC % Auto 0.0 % [facility] nRBC Abs Auto 0.000 0.000 - [facility] 0.000 [facility] x10(3)/[facility] LABORATORY Specimen Anatomical Collection Method Collection Time Receive d Time (Source) Location / / Volume Laterality Blood specimen 08/29/2020 10:01 1 (specimen) AM EDT 10:08 AM EDT Resulting Agency Comment Spec In Lab Noemy Grant SAM HEMATOLOGY ORDERABLES Performing Organization Address City/State/[place] [address] (ABNORMAL) Comprehensive metabolic panel (non-fasting) (08/29/2020 10:01 AM EDT) athologist Signature Glucose Lvl 155 65 - 199 [facility] mg/dL [facility] Comment: Diabetes: >=200 mg/dL plus symp toms BUN 47 (H) 10 - 20 mg/dL [facility] Creatinine 1.52 (H) 0.80 - 1.50 mg/dL [facility] Sodium 142 135 - 145 mmol/L [facility] Potassium 4.3 3.5 - 5.0 mmol/L [facility] Comment: Please note: ??Patients with WBC >100,00 0 may have falsely elevated Potassium levels. ??For accurate Potassium quantif ication in these patients send serum separator tube (gold top) for subsequent determinations. ??Contact the Clinical Chemistry Laboratory if there are any qu estions. Chloride 108 (H) 98 - 107 mmol/L [facility] CO2 25 22 - 31 mmol/L [facility] Anion Gap 9 5 - 15 mmol/L [facility] Calcium 8.8 8.5 - 10.5 mg/dL [facility] Total Protein 7.6 6.1 - 8.0 gm/dL [facility] Albumin 3.4 3.2 - 5.2 gm/dL [facility] AST 24 0 - 39 unit/L [facility] ALT 13 0 - 55 unit/L [facility] Alk Phos 122 40 - 130 unit/L [facility] Total Bilirubin 0.4 0.2 - 1.3 mg/dL [facility] Estimated GFR 48 (L) >=60 mL/min/1.73 m?? [facility] Comment: This patient? s estimated glomerular filtration rate (eGFR) is between 48 mL/min/1.73 m2 (patients with less muscl e mass per kg body weight) and 56 mL/min/1.73 m2 (patients with more muscl e [...] Location / / Volume Laterality Blood specimen 08/29/2020 10:01 1 (specimen) AM EDT 10:08 AM EDT Resulting Agency Comment Spec In Lab Rhiannon Headley MD CHEMISTRY ORDERABLES Performing Organization Address City/State/[facility] [place] [address] Prothrombin Time (08/29/2020 10:01 AM EDT) P athologist Signature PT 12.4 9.4 - 12.5 [facility] LABORATORY INR 1.1 [facility] Comment: An INR <2.0 indicates adequate procoagul ant activity for hemostasis in most patients without underlying bleeding dis orders, though the INR may not adequately reflect hemostatic capacity i n patients with liver disease and synthetic impairment. The recommended ta rget INR range for therapeutic anticoagulation is 2.0 ? 3.0 for most applications, though lower and higher ranges may be appropriate depending on c linical circumstances. Specimen Anatomical Collection Method Collection Time Receive d Time (Source) Location / / Volume Laterality Blood specimen 08/29/2020 10:01 1 (specimen) AM EDT 10:08 AM EDT Resulting Agency Comment Spec In Lab Rhiannon Headley MD HEMATOLOGY ORDERABLES Performing Organization Address City/State/[place] [address] (ABNORMAL) Ferritin (08/29/2020 10:01 AM EDT) athologist Signature Ferritin 1,177 (H) 30 - 400 [place] [facility] ng/mL [facility] Comment: Pediatric reference ranges not verified at [facility], interpret with caution. Reference ranges for females greater kayleigh n 50 years of age approach values for men, i.e., 30-400 ng/mL. Specimen Anatomical Collection Method Collection Time Receive d Time (Source) Location / / Volume Laterality Blood specimen 08/29/2020 10:01 1 (specimen) AM EDT 10:08 AM EDT Resulting Agency Comment Spec In Lab Noemy Grant APRN CHEMISTRY ORDERABLES Performing Organization Address City/[facility]/[place] [address] Iron and TIBC (08/29/2020 10:01 AM EDT) athologist Signature Iron 63 45 - 160 [facility] mcg/dL [facility] TIBC 278 250 - 450 [facility] mcg/dL [facility] Iron Saturation 23 20 - 50 % [facility] Specimen Anatomical Collection Method Collection Time Receive d Time (Source) Location / / Volume Laterality Blood specimen 08/29/2020 10:01 1 (specimen) AM EDT 10:08 AM EDT Resulting Agency Comment Spec In Lab Noemy Grant APRN CHEMISTRY ORDERABLES Performing Organization Address City/[facility]/ZIP [facility] [address] documented in this encounter Visit Diagnoses Diagnosis Bicytopenia Other specified diseases of blood and bl ood-forming organs Iron deficiency anemia due to chronic bl ood loss Iron deficiency anemia secondary to bloo d loss (chronic) Stage 3 chronic kidney disease 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
--- OUTSIDE RECORDS SUMMARY | 2022-04-11 10:47 | XMS_ITS | Encounter Summary ---
:1960 Author Organization [facility] [place] [address] Care Team Providers Name Role Phone Jazmine Baer MD Primary Care Provider Encounter Details Date Type Department Care Team Description 04/10/2021 Ancillary Procedure Radiology Library at Adore Baer, [facility] [id number] [place] [address] [phone] Social History Tobacco Use Types Packs/Day Years Used Date Never Smoker Smokeless Tobacco: Never Used Alcohol Use Standard Drinks/Week Comments No 0 (1 standard drink = 0.6 oz pure alcoho l) Sex Assigned at Date Recorded Not on file documented as of this encounter Plan of Treatment Upcoming Encounters Date Type Specialty Care Team Description 06/19/2022 Office Visit Rheumatology Richi Blackmon MD [facility] DR RHEUMATOLOGY [place], [place] [address] (Wo rk) Scheduled Procedures Name Priority Associated Diagnoses Date/Time EGD, UPPER GI ENDOSCOPY Family hx of colon cance r COLONOSCOPY, DIAGNOSTIC Family hx of colon cance r documented as of this encounter Procedures Procedure Name Priority Date/Time Associated Diagnosis Comme nts FILM LIBRARY Routine 04/10/2021 1:33 PM Results f or this STORAGE ONLY CT EDT procedure ar e in HEAD the results section. documented in this encounter Results Film Library- Storage Only CT Head (04/10/2021 1:33 PM EDT) Specimen (Source) Anatomical Location Collection Method / Collectio n Time Received Time / Laterality Volume Narrative RAD - 04/10/2021 1:33 PM EDT This exam is auto-finalizing. It's purpo se is for storage only. Jazmine Baer MD IMG FILM LIBRARY ORDERABLES Performing Organization Address City/State/ZIP Code Phon e Number [place], [place] documented in this encounter Visit Diagnoses Not on filedocumented in this encounter Care Teams Body Care Manager Relationship Specialty Start Date End Date Jazmine Baer MD PCP - General 11/07/10 [address] [place] [address] documented as of this encounter
--- OUTSIDE RECORDS SUMMARY | 2022-04-11 10:47 | XMS_ITS | Encounter Summary ---
:1960 [place] [address] Care Team Providers Name Role Phone Jazmine Baer MD Primary Care Provider Encounter Details Date Type Department Care Team Description 06/18/2020 External Results Hematology [place] [address] Social History Tobacco Use Types Packs/Day Years Used Date Never Smoker Smokeless Tobacco: Never Used Alcohol Use Standard Drinks/Week Comments No 0 (1 standard drink = 0.6 oz pure alcoho l) Sex Assigned at Date Recorded Not on file documented as of this encounter Plan of Treatment Upcoming Encounters Date Type Specialty Care Team Description 06/19/2022 Office Visit Rheumatology Richi Blackmon MD [facility] DR RHEUMATOLOGY [place], [place] [address] (Wo rk) Scheduled Procedures Name Priority Associated Diagnoses Date/Time EGD, UPPER GI ENDOSCOPY Family hx of colon cance r COLONOSCOPY, DIAGNOSTIC Family hx of colon cance r documented as of this encounter Visit Diagnoses Not on filedocumented in this encounter Care Teams Media Relations Specialist Relationship Specialty Start Date End Date Jazmine Baer MD PCP - General 11/07/10 [address] [place] [address] documented as of this encounter
--- OUTSIDE RECORDS SUMMARY | 2022-04-11 10:47 | XMS_ITS | Encounter Summary ---
:1960 Author Organization [facility] [place] [address] Care Team Providers Name Role Phone Jazmine Baer MD Primary Care Provider Encounter Details Date Type Department Care Team Description 04/10/2021 Ancillary Procedure Radiology Library at Adore Baer, [facility] [id number] [place] [address] [phone] Social History Tobacco Use Types Packs/Day Years Used Date Never Smoker Smokeless Tobacco: Never Used Alcohol Use Standard Drinks/Week Comments No 0 (1 standard drink = 0.6 oz pure alcoho l) Sex Assigned at Date Recorded Not on file documented as of this encounter Plan of Treatment Upcoming Encounters Date Type Specialty Care Team Description 06/19/2022 Office Visit Rheumatology Richi Blackmon MD [facility] DR RHEUMATOLOGY [place], [place] [address] (Wo rk) Scheduled Procedures Name Priority Associated Diagnoses Date/Time EGD, UPPER GI ENDOSCOPY Family hx of colon cance r COLONOSCOPY, DIAGNOSTIC Family hx of colon cance r documented as of this encounter Procedures Procedure Name Priority Date/Time Associated Diagnosis Comme nts FILM LIBRARY Routine 04/10/2021 1:36 PM Results f or this STORAGE ONLY MR EDT procedure ar e in HEAD the results section. documented in this encounter Results Film Library- Storage Only MR Head (04/10/2021 1:36 PM EDT) Specimen (Source) Anatomical Location Collection Method / Collectio n Time Received Time / Laterality Volume Narrative RAD - 04/10/2021 1:36 PM EDT This exam is auto-finalizing. It's purpo se is for storage only. Jazmine Baer MD IMG FILM LIBRARY ORDERABLES Performing Organization Address City/State/ZIP Code Phon e Number [place], [place] documented in this encounter Visit Diagnoses Not on filedocumented in this encounter Care Teams Keeper Helper Relationship Specialty Start Date End Date Jazmine Baer MD PCP - General 11/07/10 [address] [place] [address] documented as of this encounter
--- OUTSIDE RECORDS SUMMARY | 2022-04-11 10:47 | XMS_ITS | Encounter Summary ---
:1960 Author Organization [facility] [place] [address] Care Team Providers Name Role Phone Jazmine Baer MD Primary Care Provider Encounter Details Date Type Department Care Team Description 07/26/2021 Telephone Hematology and [place]cology [place] [address] Social History Tobacco Use Types Packs/Day Years Used Date Never Smoker Smokeless Tobacco: Never Used Alcohol Use Standard Drinks/Week Comments No 0 (1 standard drink = 0.6 oz pure alcoho l) Sex Assigned at Date Recorded Not on file documented as of this encounter Miscellaneous Notes Telephone Encounter - Deja Garcia RN - 07/26/2021 10:00 AM ESTSummary: Lab Tracking Received lab results dated??07/25/21??via fax from [facility].??Results have been entered into eD-H. Note sent to Karen Lugo APRN, with??lab results. ?? Recent Results (from the past 72 hour(s)) Iron and TIBC Result Value Ref Range Creatinine 2.1 (A) 0.7 - 1.3 Iron 71 65 - 175 TIBC 310 250 - 450 Iron Saturation 23 20 - 55 CBC (with Diff) Result Value Ref Range WBC 6.48 4.4 - 10.8 RBC 2.48 (A) 4.36 - 5.78 Hemoglobin 8.4 (A) 13.5 - 17.5 Hematocrit 26.8 (A) 40.0 - 50.0 Platelets 102 (A) 130 - 400 Neutr Abs (ANC) 4.52 1.2 - 6.7 Diagnosis: Iron deficiency anemia, anemia of renal insufficiency, (Aranesp 60mcg SQ injection q2 weeks for for Hgb < 12; Venofer 300mg IV every 4 weeks for iron saturation < 30). Continue with current POC: labs and care at [facility]. [facility] 03/02/22. ?? RN will continue to track labs,??monitor status??and coordinate care. documented in this encounter Plan of Treatment Upcoming Encounters Date Type Specialty Care Team Description 06/19/2022 Office Visit Rheumatology Richi Blackmon MD [facility] DR RHEUMATOLOGY [place], [place] [address] (Wo rk) Scheduled Procedures Name Priority Associated Diagnoses Date/Time EGD, UPPER GI ENDOSCOPY Family hx of colon cance r COLONOSCOPY, DIAGNOSTIC Family hx of colon cance r documented as of this encounter Procedures Procedure Name Priority Date/Time Associated Diagnosis Comme nts IRON AND TIBC Routine 07/25/2021 6:55 AM Results for this EST procedure are i n the results section. CBC (WITH DIFF) Routine 07/25/2021 6:55 AM Result s for this EST procedure are i n the results section. documented in this encounter Results (ABNORMAL) CBC (with Diff) (07/25/2021 6:55 AM EST) Analysis Performed At Patho logist Time Signature WBC 6.48 4.4 - 10.8 EXTERNAL LAB RBC 2.48 (A) 4.36 - EXTERNAL LAB 5.78 Hemoglobin 8.4 (A) 13.5 - EXTERNAL LAB 17.5 Hematocrit 26.8 (A) 40.0 - EXTERNAL LAB 50.0 Platelets 102 (A) 130 - 400 EXTERNAL LAB Neutr Abs (ANC) 4.52 1.2 - 6.7 EXTERNAL LAB Specimen (Source) Anatomical Collection Method Collection Time Re ceived Time Location / / Volume Laterality Blood 07/25/2021 6:55 AM EST Historical Provider HEMATOLOGY ORDERABLES Performing Organization Address City/State/ZIP Code Phon e Number EXTERNAL FACILITY EXTERNAL LAB (ABNORMAL) Iron and TIBC (07/25/2021 6:55 AM EST) P athologist Signature Creatinine 2.1 (A) 0.7 - 1.3 EXTERNAL LAB Iron 71 65 - 175 EXTERNAL LAB TIBC 310 250 - 450 EXTERNAL LAB Iron Saturation 23 20 - 55 EXTERNAL LAB Specimen (Source) Anatomical Collection Method Collection Time Re ceived Time Location / / Volume Laterality Blood 07/25/2021 6:55 AM EST Historical Provider CHEMISTRY ORDERABLES Performing Organization Address City/State/ZIP Code Phon e Number EXTERNAL FACILITY EXTERNAL LAB documented in this encounter Visit Diagnoses Not on filedocumented in this encounter Care Teams Bit Grinder Relationship Specialty Start Date End Date Jazmine Baer MD PCP - General 11/07/10 [address] [place] [address] documented as of this encounter
--- OUTSIDE RECORDS SUMMARY | 2022-04-11 10:47 | XMS_ITS | Encounter Summary ---
:1960 Author Organization [place] [address] Care Team Providers Name Role Phone Jazmine Baer MD Primary Care Provider Encounter Details Date Type Department Care Team Description 05/29/2021 Telephone Hematology and Oncol ogy at [facility] [place] [address] Social History Tobacco Use Types Packs/Day Years Used Date Never Smoker Smokeless Tobacco: Never Used Alcohol Use Standard Drinks/Week Comments No 0 (1 standard drink = 0.6 oz pure alcoho l) Sex Assigned at Date Recorded Not on file documented as of this encounter Miscellaneous Notes Telephone Encounter - Daniela Lan RN - 05/29/2021 8:18 AM EST RN received call at 08:19 from Gloria with [facility] Lab reporting critical result(s) on patient: BUN 98.0 CR 2.1 RN notified Noemy Grant and Karen Lugo of above results at 08:20. documented in this encounter Plan of Treatment Upcoming Encounters Date Type Specialty Care Team Description 06/19/2022 Office Visit Rheumatology Richi Blackmon MD [facility] DR RHEUMATOLOGY [place], [place] [address] (Wo rk) Scheduled Procedures Name Priority Associated Diagnoses Date/Time EGD, UPPER GI ENDOSCOPY Family hx of colon cance r COLONOSCOPY, DIAGNOSTIC Family hx of colon cance r documented as of this encounter Visit Diagnoses Not on filedocumented in this encounter Care Teams Infant Teacher Relationship Specialty Start Date End Date Jazmine Baer MD PCP - General 11/07/10 [address] [place] [address] documented as of this encounter
--- OUTSIDE RECORDS SUMMARY | 2022-04-11 10:47 | XMS_ITS | Encounter Summary ---
:1960 Author Organization [facility] [place] [address] Care Team Providers Name Role Phone Jazmine Baer MD Primary Care Provider Reason for Visit Reason Comments Follow-up Encounter Details Date Type Department Care Team Description 08/29/2020 Office Visit Hematology and Anastasia Ignacio MD [facility] [address] HEMATOLOGY/[place] [address] Bicytopenia; Oncology at [facility] Karen Lugo [facility] [address] HEMATOLOGY/[place] [address] Iron deficiency anemia, unspecified iron deficiency anemia type [facility] Noemy Grant, [facility] [address] HEMATOLOGY-[place] [address] [place] [address] Social History Tobacco Use Types Packs/Day Years Used Date Never Smoker Smokeless Tobacco: Never Used Alcohol Use Standard Drinks/Week Comments No 0 (1 standard drink = 0.6 oz pure alcoho l) Sex Assigned at Date Recorded Not on file documented as of this encounter Last Filed Vital Signs Vital Sign Reading Time Taken Comments Blood Pressure 146/62 08/29/2020 11:15 AM EDT Pulse 70 08/29/2020 11:15 AM EDT Temperature 36.7 ??C (98.1 ??F) 08/29/2020 11:15 AM EDT Respiratory Rate 19 08/29/2020 11:15 AM EDT Oxygen Saturation 97% 08/29/2020 11:15 AM EDT Inhaled Oxygen Concentration - - Weight 134.8 kg (297 lb 3.2 oz) 08/29/2020 11:15 AM EDT Height 171.4 cm (5' 7.48) 08/29/2020 11:15 AM EDT Body Mass Index 45.89 08/29/2020 11:15 AM EDT documented in this encounter Progress Notes Karen Lugo, [employer] - 08/29/2020 11:15 [place] [address] HEMATOLOGY/BMT CONSULTATION VISIT NOTE Chief Complaint: Bucky Beth is a 60 y.o. male referred by Dr. Baer for evaluation of bicytopenia (anemia and thrombocytopenia) . Data Review (From Jazmine Baer MD and [facility]) Oringinal History of Present Illness (03/16/16) Bucky Beth is a 60 y.o. 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 He was referred for evaluation ofiron deficiency anemia and thrombocytopenia. He had been evaluated by Dr Evangelista at [facility] in 2012 for anemia and thrombocytopenia. At that time a bone marrow biopsy was done which was normal. He states that he was started on iron supplementation pills at that time however, he used them briefly before stopping. He is currently on oral ferrous sulfate alternating with ferrous gluconate daily. He states that Ferrous gluconate was started by Jorgito because of constipation with ferrous sulfate. He e ndorses tiredness/ fatigue with exertion. He denies chest pain, shortness of breath, dizziness or headaches. Endorses pica (eats/chews ice). Denies blood in stool,melana,hematuria or hemoptysis. His last upper endoscopy was done on 08/30/15 and showed no obvious cause cause of anemia. Last colonoscopy was in 07/24 and also showed no cause of anemia. He is scheduled for EGD, capsule endoscopy and possible colonoscopy in 04/25. 04/10/16 BM Bx - hypercellular marrow (60-70%) with NTLM. No evidence of MDS, malignancy or other disorder. CG - normal male karyotype in all cells 54 Gene Myeloid Panel - no gene varients detected Fall 2016 IV IRON x 4 doses 06/07/2017 Epogen 20,000 units injection weekly initiated Interim HPI: Bucky returns to clinic today in routine follow-up of his bicytopenias and iron deficiency. He was last seen in clinic ~ 6 months ago. Since last seen, Bucky reports feeling well. He denies changes to his baseline health. No fevers, chills, recurrent infections or intercurrent illnesses. He has received his first COVID vaccination last Saturday without side effects. He continues to receive at [facility] qmonth Venofer 300mg for iron saturation < 20 and Aranesp 60mcg SQ injection q2 weeks for Hgb < 12gm/dL. He does report fatigue though is able to modify his activity and expectations asnecessary. He remains independent in ADLs. He continues to work on glucose control with PCP with last reported A1c of 5.4. No new health-related concerns. Review of Systems: Constitutional --Energy level: reasonably good, manages ADLs, rests as needed --Pain: None --Fevers/chills/sweats: No --Unexpected weight loss or gain: No Eyes, ears, nose, throat --No change in vision- decreased visual acuity- has an upcoming appt with ophthalmology appt In October -No change hearing, no oral or throat pain or thrush Cardiovascular --Chest pain: No --Palpitations: No Respiratory --Cough: No --SOB, CALDERON: No SOB at rest though admits to little outdoor exercise during the winter to comments onwhether or not he still has CALDERON Gastrointestinal --Appetite: so-so but consistently eats 3 meals a day due to DM --Early satiety: No --Nausea/vomiting/diarrhea/constipation: occasional nausea a few times a month which responds to Zofran [less frequent] --Melena/Hematochezia: No Genitourinary --Dysuria or hematuria: No Musculoskeletal --Muscle pain or weakness: no focal pain though continues to describe generalized muscle weakness improved with solumedrol and IVIG infusions- stable --Joint pain or swelling: No Immune System --Recent infections: No Hematology/Lymph --Bruising/bleeding/melena: No --Enlarged nodes or other masses: No Skin --Rashes or petechiae: No Neuro --Numbness/tingling: No --Headache/dizziness: No --lightheadedness: No Other ROS: All negative Past Medical History Past Medical History: Diagnosis Date ??? Cirrhosis ??? Diabetes ??? DM II (diabetes mellitus, type II), controlled ??? Gout ??? Hyperlipidemia ??? Hypertension ??? Kidney stone ??? 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 Obesity ??? Shingles 2010 Medications: ??? BD Ultra-Fine Short Pen Needle 31 gauge x 5/16 Needle ??? allopurinoL (Zyloprim) 100 mg Tablet ??? darbepoetin matt in polysorbat (ARANESP, IN POLYSORBATE, INJ) ??? ondansetron (Zofran) 4 mg Tablet ??? sodium chloride 0.9% SolP 100 mL with methylPREDNISolone sodium succinate (PF) 1,000 mg/8 mL SolR 500 mg ??? metoprolol succinate (TOPROL-XL) 50 mg Tablet Sustained Release 24 hr ??? colchicine (COLCRYS) 0.6 mg Tablet ??? HUMALOG KWIKPEN 100 unit/mL Insulin Pen ??? ONETOUCH ULTRA TEST Strip ??? IMMUNE GLOBULIN,GAMMA,IGG, (IMMUNE GLOBULIN, HUMAN,, IGG, IV) ??? terazosin (HYTRIN) 5 mg Capsule ??? insulin glargine (LANTUS SOLOSTAR) Insulin Pen ??? furosemide (LASIX) 20 mg Tablet ??? multivitamin Capsule ??? lisinopril-hydrochlorothiazide (PRINZIDE;ZESTORETIC) 20-12.5 mg per tablet Allergies Allergies Allergen Reactions ??? Methotrexate Hives, Itching and Rash ??? Morphine Itching ??? Nppoylz-Bmz-Jpy Reductase Inhibitors Myopathy INTERIM SOCIAL HISTORY: Changes in job, home situation, tobacco or alcohol use since last visit: None CHANGES IN RELEVANT FAMILY HISTORY: None Physical Exam VITAL SIGNS: BP 146/62 (Patient Position: Sitting) Pulse 70 Temp 36.7 ??C (98.1 ??F) (Temporal) Resp 19 Ht 171.4 cm (5' 7.48) Wt 134.8 kg (297 lb 3.2 oz) SpO2 97% BMI 45.89 kg/m?? Laboratory: Results for BUCKY BETH ( ) as of 08/31/2020 20:00 Ref. Range 08/29/2020 10:01 WBC Latest Ref Range: 4.0 - 9.5 x10(3)/mcL 4.0 RBC Latest Ref Range: 4.58 - 5.54 x10(6)/mcL 3.63 (L) Hemoglobin Latest Ref Range: 13.7 - 16.5 gm/dL 11.6 (L) Hematocrit Latest Ref Range: 40.5 - 48.5 % 36.9 (L) MCV Latest Ref Range: 82.9 - 93.1 fL 101.7 (H) MCH Latest Ref Range: 27.5 - 32.1 pg 32.0 MCHC Latest Ref Range: 32.0 - 35.7 gm/dL 31.4 (L) RDWSD Latest Ref Range: 36.0 - 45.0 fL 58.4 (H) RDWCV Latest Ref Range: 11.4 - 13.8 % 15.6 (H) Platelets Latest Ref Range: 145 - 357 x10(3)/mcL 79 (L) MPV Latest Ref Range: 7.6 - 12.9 fL 11.7 nRBC % Auto Latest Units: % 0.0 nRBC Abs Auto Latest Ref Range: 0.000 - 0.000 x10(3)/mcL 0.000 Neutr Abs (ANC) Latest Ref Range: 1 - 6 x10(3)/mcL 2.52 Neutrophils % Latest Units: % 63.1 Immature Gran % Latest Units: % 0.30 Lymphocytes % Latest Units: % 13.8 Monocytes % Latest Units: % 8.8 Eosinophils % Latest Units: % 12.5 Basophils % Latest Units: % 1.5 Tamara Gran Abs Latest Ref Range: 0.00 - 0.04 x10(3)/mcL 0.01 Lymphocytes Abs Latest Ref Range: 0.9 - 3.2 x10(3)/mcL 0.6 (L) Monocyte Abs Latest Ref Range: 0.3 - 0.9 x10(3)/mcL 0.4 Eosinophils Abs Latest Ref Range: 0.0 - 0.4 x10(3)/mcL 0.5 (H) Basophils Abs Latest Ref Range: 0.0 - 0.1 x10(3)/mcL 0.1 PT Latest Ref Range: 9.4 - 12.5 sec 12.4 INR Unknown 1.1 Sodium Latest Ref Range: 135 - 145 mmol/L 142 Potassium Latest Ref Range: 3.5 - 5.0 mmol/L 4.3 Chloride Latest Ref Range: 98 - 107 mmol/L 108 (H) CO2 Latest Ref Range: 22 - 31 mmol/L 25 Anion Gap Latest Ref Range: 5 - 15 mmol/L 9 BUN Latest Ref Range: 10 - 20 mg/dL 47 (H) Creatinine Latest Ref Range: 0.80 - 1.50 mg/dL 1.52 (H) Estimated GFR Latest Ref Range: >=60 mL/min/1.73 m?? 48 (L) Calcium Latest Ref Range: 8.5 - 10.5 mg/dL 8.8 Glucose Lvl Latest Ref Range: 65 - 199 mg/dL 155 Total Protein Latest Ref Range: 6.1 - 8.0 gm/dL 7.6 Albumin Latest Ref Range: 3.2 - 5.2 gm/dL 3.4 Total Bilirubin Latest Ref Range: 0.2 - 1.3 mg/dL 0.4 Alk Phos Latest Ref Range: 40 - 130 unit/L 122 AST Latest Ref Range: 0 - 39 unit/L 24 ALT Latest Ref Range: 0 - 55 unit/L 13 Iron Latest Ref Range: 45 - 160 mcg/dL 63 TIBC Latest Ref Range: 250 - 450 mcg/dL 278 Iron Saturation Latest Ref Range: 20 - 50 % 23 Ferritin Latest Ref Range: 30 - 400 ng/mL 1,177 (H) Radiology: No new images reviewed today Assessment & Plan: Bucky Beth is a 60 y.o. male with h/o thrombocytopenia and anemia. 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 He had been evaluated in the past for thrombocytopenia and anemia with BMbx in 2012 with no evidence of MDS or hematologic malignancy. This was repeated by us in June of 2015 and again showed no evidence of an underlying primary hematologic problem and included normal cytogenetics and normal 54 gene myeloid mutation panel. 1. Anemia - --full anemia w/u in January 2017 found only to be iron deficiency - this despite him being on oral iron. --s/p 4 doses of Venofer 300 mg at [facility] followed by once a month Venofer maintenance infusion for iron saturation is < 20. Ferritin is not valuable to follow given ongoing concomittent diagnosis of autoimmune myopathy causing non- specific inflammation --Epo level inappropriately low for Hgb in the setting of CKD, continue Aranesp 60mcg SQ injection qoweekly for Hgb < 12gm/dL 2. 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 No clinically significant bleeding. Platelet count remains stable without clinical consequences in the 60-80,000 range. 3. Follow-up - Continue qmonth Venofer 300mg for iron saturation < 20 and Aranesp 60mcg SQ injection q2 weeks for Hgb < 12gm/dL at [facility] for convenience - RTC in approximately 6 months with labs and a visit. Will ask that this be coordinated with Nephrology follow-up to minimize travel - General medical care and age appropriate health screening remain under the direction of Dr. Baer. - Bucky was reminded that we remain available in the interim should questions/concerns arise. Karen Lugo, MSN, [employer] Nurse Practitioner Section of Hematology/Oncology Copies Jazmine Baer MD documented in this encounter Plan of Treatment Upcoming Encounters Date Type Specialty Care Team Description 06/19/2022 Office Visit Rheumatology Richi Blackmon MD [facility] [address] RHEUMATOLOGY [place], [place] [address] (Wo rk) Scheduled Procedures Name Priority Associated Diagnoses Date/Time EGD, UPPER GI ENDOSCOPY Family hx of colon cance r COLONOSCOPY, DIAGNOSTIC Family hx of colon cance r documented as of this encounter Results Iron and TIBC (03/03/2021 10:48 AM EDT) athologist Signature Iron 66 45 - 160 [facility] mcg/dL [facility] TIBC 262 250 - 450 [facility] mcg/dL [facility] Iron Saturation 25 20 - 50 % [facility] Specimen Anatomical Collection Method Collection Time Receive d Time (Source) Location / / Volume Laterality Blood 03/03/2021 10:48 03/03/2021 AM EDT 11:07 AM EDT Resulting Agency Comment Spec In Lab Karen Lugo SAM CHEMISTRY ORDERABLES Performing Organization Address City/State/Z[place] [address] (ABNORMAL) Comprehensive metabolic panel (non-fasting) (03/03/2021 10:48 AM EDT) P athologist Signature Glucose Lvl 49 65 - 199 [facility] (Critical) mg/dL [facility] Comment: Called by: JESUS, Read back by: Ankita Mulligan rt, Date/Time: 03/03/21 11:55. Diabetes: >=200 mg/dL plus symptoms BUN 46 (H) 10 - 20 mg/dL [facility] Creatinine 1.67 (H) 0.80 - 1.50 mg/dL [facility] Sodium 139 135 - 145 mmol/L [facility] Potassium 4.1 3.5 - 5.0 mmol/L [facility] Comment: Please note: ??Patients with WBC >100,00 0 may have falsely elevated Potassium levels. ??For accurate Potassium quantif ication in these patients send serum separator tube (gold top) for subsequent determinations. ??Contact the Clinical Chemistry Laboratory if there are any qu estions. Chloride 107 98 - 107 mmol/L [facility] CO2 25 22 - 31 mmol/L [facility] Anion Gap 7 5 - 15 mmol/L [facility] Calcium 8.9 8.5 - 10.5 mg/dL [facility] Total Protein 8.5 (H) 6.1 - 8.0 g/dL [facility] Albumin 3.3 3.2 - 5.2 g/dL [facility] AST 33 0 - 39 unit/L [facility] ALT 21 0 - 55 unit/L [facility] Alk Phos 135 (H) 40 - 130 unit/L [facility] Total Bilirubin 0.6 0.2 - 1.3 mg/dL [facility] Estimated GFR 43 (L) >=60 mL/min/1.73 m?? [facility] Comment: This patient? s estimated glomerular filtration rate (eGFR) is between 43 mL/min/1.73 m2 (patients with less muscl e mass per kg body weight) and 50 mL/min/1.73 m2 (patients with more muscl e [...] (Source) Location / / Volume Laterality Blood 03/03/2021 10:48 03/03/2021 AM EDT 11:07 AM EDT Resulting Agency Comment Spec In Lab Karen Lugo [employer] CHEMISTRY ORDERABLES Performing Organization Address City/State/ZIP Code Phon e Number [place] [phone] documented in this encounter Visit Diagnoses Diagnosis Bicytopenia Other specified diseases of blood and bl ood-forming organs Iron deficiency anemia, unspecified iron deficiency anemia type documented in this encounter Care Teams Parts Department Manager Relationship Specialty Start Date End Date Jazmine Baer MD PCP - General 11/07/10 [address] [place] [address] documented as of this encounter
--- OUTSIDE RECORDS SUMMARY | 2022-04-11 10:47 | XMS_ITS | Encounter Summary ---
:1960 Author Organization [facility] [place] [address] Care Team Providers Name Role Phone Jazmine Baer MD Primary Care Provider Encounter Details Date Type Department Care Team Description 05/26/2021 Telephone Rheumatology at [facility] [place] [address] Social History Tobacco Use Types Packs/Day Years Used Date Never Smoker Smokeless Tobacco: Never Used Alcohol Use Standard Drinks/Week Comments No 0 (1 standard drink = 0.6 oz pure alcoho l) Sex Assigned at Date Recorded Not on file documented as of this encounter Miscellaneous Notes Telephone Encounter - Lanie Lopez LPN - 05/26/2021 3:17 PM EST Beatris from [facility] returned call to Dr. Blackmon and wants to relay that pt reported his weight at 126kg. His dose has been based on 130-135 kg. They will take his weight again in two weeks. She states that he is not getting under dosed at all. If you have any questions, you can call Beatris at [phone]. Luis Dela Cruz documented in this encounter Plan of Treatment Upcoming Encounters Date Type Specialty Care Team Description 06/19/2022 Office Visit Rheumatology Richi Blackmon MD [facility] DR RHEUMATOLOGY [place], [place] [address] (Wo rk) Scheduled Procedures Name Priority Associated Diagnoses Date/Time EGD, UPPER GI ENDOSCOPY Family hx of colon cance r COLONOSCOPY, DIAGNOSTIC Family hx of colon cance r documented as of this encounter Visit Diagnoses Not on filedocumented in this encounter Care Teams Professor Of Art History Relationship Specialty Start Date End Date Jazmine Baer MD PCP - General 11/07/10 [address] [place] [address] documented as of this encounter
--- OUTSIDE RECORDS SUMMARY | 2022-04-11 10:47 | XMS_ITS | Encounter Summary ---
:1960 Author Organization [facility] [place] [address] Care Team Providers Name Role Phone Jazmine Baer MD Primary Care Provider Reason for Visit Reason Onset Date Comments Labs Only 11/15/2020 Lab Tracking Encounter Details Date Type Department Care Team Description 11/15/2020 Telephone Hematology and Oncology Ankita Alonzo L abs Only (Lab Tracking) at [facility] [place] [address] Social History Tobacco Use Types Packs/Day Years Used Date Never Smoker Smokeless Tobacco: Never Used Alcohol Use Standard Drinks/Week Comments No 0 (1 standard drink = 0.6 oz pure alcoho l) Sex Assigned at Date Recorded Not on file documented as of this encounter Miscellaneous Notes Telephone Encounter - Ankita Alonzo RN - 11/15/2020 11:16 AM EDT Received lab results dated 11/15/20 via fax from [facility]. Results have been sent to Tatiana Vincent to inputresults into eDH. Patient w/LONNIE & Thrombocytopenia last seen 08/30/19 with q month Venofer for iron sat <20 and q other week Aranesp for HGB <12 at [facility]. Iron 63 L, TIBC 237 L Transferrin Sat WNL at 27% Note sent to Karen Lugo APRN, with lab results. Continue with current POC: labs and care at [facility]. RN will continue to track labs, monitor status and coordinate care. documented in this encounter Plan of Treatment Upcoming Encounters Date Type Specialty Care Team Description 06/19/2022 Office Visit Rheumatology Richi Blackmon MD [facility] RHEUMATOLOGY [place], [place] [address] (Wo rk) Scheduled Procedures Name Priority Associated Diagnoses Date/Time EGD, UPPER GI ENDOSCOPY Family hx of colon cance r COLONOSCOPY, DIAGNOSTIC Family hx of colon cance r documented as of this encounter Visit Diagnoses Not on filedocumented in this encounter Care Teams Thread Puller Relationship Specialty Start Date End Date Jazmine Baer MD PCP - General 11/07/10 [address] [place] [address] documented as of this encounter
--- OUTSIDE RECORDS SUMMARY | 2022-04-11 10:47 | XMS_ITS | Encounter Summary ---
:1960 Author Organization [place] [address] Care Team Providers Name Role Phone Jazmine Baer MD Primary Care Provider Encounter Details Date Type Department Care Team Description 05/02/2021 Laboratory Appointment Lab 3L [facility] Stage 3a chronic [facility] [place] [id number] Social History Tobacco Use Types Packs/Day Years Used Date Never Smoker Smokeless Tobacco: Never Used Alcohol Use Standard Drinks/Week Comments No 0 (1 standard drink = 0.6 oz pure alcoho l) Sex Assigned at Date Recorded Not on file documented as of this encounter Plan of Treatment Upcoming Encounters Date Type Specialty Care Team Description 06/19/2022 Office Visit Rheumatology Richi Blackmon MD [facility] RHEUMATOLOGY [place], [place] [address] (Wo rk) Scheduled Procedures Name Priority Associated Diagnoses Date/Time EGD, UPPER GI ENDOSCOPY Family hx of colon cance r COLONOSCOPY, DIAGNOSTIC Family hx of colon cance r documented as of this encounter Procedures Procedure Name Priority Date/Time Associated Comments Diagnosis HC PROTEIN, Routine 05/02/2021 10:17 Stage 3a chronic Results for this QUANTITATIVE, URINE AM EST kidney disease proced ure are in the results section. HC PARATHYROID Routine 05/02/2021 10:16 Stage 3a chronic Resul ts for this HORMONE(PTH INTACT AM EST kidney disease procedu re are in the results section. HEMOGRAM Routine 05/02/2021 10:16 Stage 3a chronic Results for this AM EST kidney disease procedure are in the results section. DIFFERENTIAL, Routine 05/02/2021 10:16 Stage 3a chronic Result s for this AUTOMATED AM EST kidney disease procedure are in the results section. HC CBC,PLT & AUTO Routine 05/02/2021 10:16 Stage 3a chronic DIFF AM EST kidney disease HC URIC ACID, SERUM Routine 05/02/2021 10:16 Stage 3a chronic Results for this AM EST kidney disease procedure are in the results section. HC PHOSPHORUS, SERUM Routine 05/02/2021 10:16 Stage 3a chronic Results for this AM EST kidney disease procedure are in the results section. HC ALBUMIN, SERUM Routine 05/02/2021 10:16 Stage 3a chronic Re sults for this AM EST kidney disease procedure are in the results section. BASIC METABOLIC PANEL Routine 05/02/2021 10:16 Stage 3a chroni c Results for this (NON-FASTING) AM EST kidney disease procedure ar e in the results section. documented in this encounter Results (ABNORMAL) Protein/Creatinine Ratio, urine (05/02/2021 10:17 AM EST) P athologist Signature U Creatinine 23 mg/dL [facility] U Protein Ran 28 (H) 0 - 12 [facility] mg/dL [facility] Prot/Cre Ratio 1.2 ratio [facility] Specimen Anatomical Collection Method Collection Time Receive d Time (Source) Location / / Volume Laterality Urine 05/02/2021 10:17 05/02/2021 AM EST 10:25 AM EST Resulting Agency Comment Spec In Lab Lea Villavicencio MD URINE ORDERABLES Performing Organization Address City/State/[place] [address] (ABNORMAL) Differential, Automated (05/02/2021 10:16 AM EST) Patholo gist Method Time Signature Neutrophils % 69.6 % [facility] Neutr Abs (ANC) 4.60 1.70 - [facility] 6.10 [facility] x10(3)/[facility] LABORATORY Lymphocytes % 10.9 % [facility] Lymphocytes Abs 0.7 (L) 0.9 - 3.2 [facility] x10(3)/[facility] LABORATORY Monocytes % 9.7 % [facility] Monocyte Abs 0.6 0.3 - 0.9 [facility] x10(3)/[facility] LABORATORY Eosinophils % 8.0 % [facility] Eosinophils Abs 0.5 (H) 0.0 - 0.4 [facility] x10(3)/[facility] LABORATORY Basophils % 1.5 % [facility] Basophils Abs 0.1 0.0 - 0.1 [facility] x10(3)/[facility] LABORATORY Immature Gran % 0.30 % [facility] Comment: Immature granulocytes(IG's)percentage an d absolute count will include metamyelocytes, myelocytes, and promyelo cytes. Blood smears from CBCs yielding IG's will be scanned manually for concor dance. If this scan disagrees with the automated IG or if promyelocytes are not ed, a manual differential will be performed. Tamara Gran Abs 0.02 0.00 - 0.04 x10(3)/[facility] Specimen Anatomical Collection Method Collection Time Receive d Time (Source) Location / / Volume Laterality Blood 05/02/2021 10:16 05/02/2021 AM EST 10:30 AM EST Resulting Agency Comment Spec In Lab Lea Villavicencio MD HEMATOLOGY ORDERABLES Performing Organization Address City/State/ZIP Code Phon e Number [place] [phone] (ABNORMAL) Hemogram (05/02/2021 10:16 AM EST) [facility] gist Method Time Signature WBC 6.6 4.0 - 9.5 [facility] x10(3)/[facility] LABORATORY RBC 4.68 4.58 - [facility] 5.54 [facility] x10(6)/[facility] LABORATORY Hemoglobin 15.3 13.7 - [facility] 16.5 g/dL [facility] Hematocrit 47.6 40.5 - [facility] 48.5 % [facility] MCV 101.7 (H) 82.9 - [facility] fL [facility] MCH 32.7 (H) 27.5 - [facility] 32.1 pg [facility] MCHC 32.1 32.0 - [facility] 35.7 g/dL [facility] Platelets 115 (L) 145 - 357 [facility] x10(3)/[facility] LABORATORY RDWSD 55.0 (H) 36.0 - [facility] 45.0 [facility] LABORATORY RDWCV 14.6 (H) 11.4 - [facility] 13.8 % [facility] MPV 11.4 7.6 - 12.9 [facility] LABORATORY nRBC % Auto 0.0 % [facility] nRBC Abs Auto 0.000 0.000 - [facility] 0.000 [facility] x10(3)/[facility] LABORATORY Specimen Anatomical Collection Method Collection Time Receive d Time (Source) Location / / Volume Laterality Blood 05/02/2021 10:16 05/02/2021 AM EST 10:30 AM EST Resulting Agency Comment Spec In Lab Lea Villavicencio MD HEMATOLOGY ORDERABLES Performing Organization Address City/State/[place] [address] (ABNORMAL) Basic Metabolic Panel (non-fasting) (05/02/2021 10:16 AM EST) P athologist Signature Glucose Lvl 137 65 - 199 [facility] mg/dL [facility] Comment: Diabetes: >=200 mg/dL plus symp toms BUN 53 (H) 10 - 20 mg/dL [facility] Creatinine 1.78 (H) 0.80 - 1.50 mg/dL [facility] Sodium 136 135 - 145 mmol/L [facility] Potassium 4.7 3.5 - 5.0 mmol/L [facility] Comment: Please note: ??Patients with WBC >100,00 0 may have falsely elevated Potassium levels. ??For accurate Potassium quantif ication in these patients send serum separator tube (gold top) for subsequent determinations. ??Contact the Clinical Chemistry Laboratory if there are any qu estions. Chloride 99 98 - 107 mmol/L [facility] CO2 26 22 - 31 mmol/L [facility] Anion Gap 11 5 - 15 mmol/L [facility] Calcium 9.7 8.5 - 10.5 mg/dL [facility] Estimated GFR 40 (L) >=60 mL/min/1.73 m?? [facility] Comment: This patient? s estimated [...] Villavicencio MD CHEMISTRY ORDERABLES Performing Organization Address City/[facility]/ZIP Code Phon e Number [address] Phosphorus (05/02/2021 10:16 AM EST) P athologist Signature Phosphorus 3.8 2.5 - 4.5 [facility] mg/dL [facility] Specimen Anatomical Collection Method Collection Time Receive d Time (Source) Location / / Volume Laterality Blood 05/02/2021 10:16 05/02/2021 AM EST 10:30 AM EST Resulting Agency Comment Spec In Lab Lea Villavicencio MD CHEMISTRY ORDERABLES Performing Organization Address City/[facility] Phon e Number [address] Albumin Level (05/02/2021 10:16 AM EST) athologist Signature Albumin 3.7 3.2 - 5.2 [place] g/dL [facility] Specimen Anatomical Collection Method Collection Time Receive d Time (Source) Location / / Volume Laterality Blood 05/02/2021 10:16 05/02/2021 AM EST 10:30 AM EST Resulting Agency Comment Spec In Lab Lea Villavicencio MD CHEMISTRY ORDERABLES Performing Organization Address City/[facility]/[place] [address] Uric acid (05/02/2021 10:16 AM EST) P athologist Signature Uric Acid 4.4 3.5 - 8.5 [place] mg/dL [facility] Specimen Anatomical Collection Method Collection Time Receive d Time (Source) Location / / Volume Laterality Blood 05/02/2021 10:16 05/02/2021 AM EST 10:30 AM EST Resulting Agency Comment Spec In Lab Lea Villavicencio MD CHEMISTRY ORDERABLES Performing Organization Address City/[facility]/ZIP Code Phon e Number [address] (ABNORMAL) PTH (05/02/2021 10:16 AM EST) P athologist Signature PTH 85 (H) 15 - 65 [facility] JUV[place] pg/mL [facility] Specimen Anatomical Collection Method Collection Time Receive d Time (Source) Location / / Volume Laterality Blood 05/02/2021 10:16 05/02/2021 AM EST 10:30 AM EST Resulting Agency Comment Spec In Lab Lea Villavicencio MD CHEMISTRY ORDERABLES Performing Organization Address City/[facility]/ZIP Code Phon e Number [address] documented in this encounter Visit Diagnoses Diagnosis Stage 3a chronic kidney disease documented in this encounter Care Teams Lawyers Relationship Specialty Start Date End Date Jazmine Baer MD PCP - General 11/07/10 [address] [place] [address] documented as of this encounter
--- OUTSIDE RECORDS SUMMARY | 2022-04-11 10:47 | XMS_ITS | Encounter Summary ---
:1960 Author Organization [place] [address] Care Team Providers Name Role Phone Jazmine Baer MD Primary Care Provider Encounter Details Date Type Department Care Team Description 10/03/2021 Telephone Hematology [place] [phone] Social History Tobacco Use Types Packs/Day Years Used Date Never Smoker Smokeless Tobacco: Never Used Alcohol Use Standard Drinks/Week Comments No 0 (1 standard drink = 0.6 oz pure alcoho l) Sex Assigned at Date Recorded Not on file documented as of this encounter Miscellaneous Notes Telephone Encounter - Jessica Santos RN - 10/03/2021 5:41 PM EDT Received lab results dated 10/02/21 via fax from [facility]. Results have been input into eDH. Latest Reference Range & Units 10/02/21 07:00 WBC 4.4 - 10.8 5.13 (E) Hemoglobin 13.5 - 17.5 12.1 ! (E) Hematocrit 40.0 - 50.0 38.6 ! (E) Platelets 130 - 400 62 ! (E) Neutr Abs (ANC) 1.2 - 6.7 3.56 (E) !: Data is abnormal (E): External lab result Latest Reference Range & Units 10/02/21 08:50 Sodium 136 - 145 133 ! (E) Potassium 3.5 - 5.1 4.9 (E) BUN 7 - 18 68 ! (E) Creatinine 0.7 - 1.3 2.0 ! (E) Calcium 8.5 - 10.1 8.3 ! (E) Glucose Lvl 74 - 106 357 ! (E) Total Protein 6.4 - 8.2 7.4 (E) Albumin 3.4 - 5.0 2.8 ! (E) Total Bilirubin 0.2 - 1.0 0.5 (E) Alk Phos 46 - 116 180 ! (E) AST 15 - 37 72 ! (E) ALT 16 - 63 81 ! (E) !: Data is abnormal (E): External lab result Note sent to Karen Lugo with lab results. Diagnosis: LONNIE documented in this encounter Plan of Treatment Upcoming Encounters Date Type Specialty Care Team Description 06/19/2022 Office Visit Rheumatology Richi Blackmon MD [facility] ER DR RHEUMATOLOGY [place], [place] [address] (Wo rk) Scheduled Procedures Name Priority Associated Diagnoses Date/Time EGD, UPPER GI ENDOSCOPY Family hx of colon cance r COLONOSCOPY, DIAGNOSTIC Family hx of colon cance r documented as of this encounter Procedures Procedure Name Priority Date/Time Associated Comments Diagnosis COMPREHENSIVE Routine 10/02/2021 8:50 AM Results for this METABOLIC PANEL EDT procedure ar e in (NON-FASTING) the results section. CBC (WITH DIFF) Routine 10/02/2021 7:00 AM Result s for this EDT procedure are i n the results section. documented in this encounter Results (ABNORMAL) Comprehensive metabolic panel (non-fasting) (10/02/2021 8:50 AM EDT) P athologist Signature Glucose Lvl 357 (A) 74 - 106 EXTERNAL LAB BUN 68 (A) 7 - 18 EXTERNAL LAB Creatinine 2.0 (A) 0.7 - 1.3 EXTERNAL LAB Sodium 133 (A) 136 - 145 EXTERNAL LAB Potassium 4.9 3.5 - 5.1 EXTERNAL LAB Calcium 8.3 (A) 8.5 - 10.1 EXTERNAL LAB Total Protein 7.4 6.4 - 8.2 EXTERNAL LAB Albumin 2.8 (A) 3.4 - 5.0 EXTERNAL LAB Total Bilirubin 0.5 0.2 - 1.0 EXTERNAL LAB Alk Phos 180 (A) 46 - 116 EXTERNAL LAB AST 72 (A) 15 - 37 EXTERNAL LAB ALT 81 (A) 16 - 63 EXTERNAL LAB Specimen (Source) Anatomical Collection Method Collection Time Re ceived Time Location / / Volume Laterality Blood 10/02/2021 8:50 AM EDT Historical Provider CHEMISTRY ORDERABLES Performing Organization Address City/State/ZIP Code Phon e Number EXTERNAL FACILITY EXTERNAL LAB (ABNORMAL) CBC (with Diff) (10/02/2021 7:00 AM EDT) Analysis Performed At Patho logist Time Signature WBC 5.13 4.4 - 10.8 EXTERNAL LAB Hemoglobin 12.1 (A) 13.5 - EXTERNAL LAB 17.5 Hematocrit 38.6 (A) 40.0 - EXTERNAL LAB 50.0 Platelets 62 (A) 130 - 400 EXTERNAL LAB Neutr Abs (ANC) 3.56 1.2 - 6.7 EXTERNAL LAB Specimen (Source) Anatomical Collection Method Collection Time Re ceived Time Location / / Volume Laterality Blood 10/02/2021 7:00 AM EDT Historical Provider HEMATOLOGY ORDERABLES Performing Organization Address City/State/ZIP Code Phon e Number EXTERNAL FACILITY EXTERNAL LAB documented in this encounter Visit Diagnoses Not on filedocumented in this encounter Care Teams Learning And Development Associate Relationship Specialty Start Date End Date Jazmine Baer MD PCP - General 11/07/10 [address] [place] [address] documented as of this encounter
--- OUTSIDE RECORDS SUMMARY | 2022-04-11 10:47 | XMS_ITS | Encounter Summary ---
:1960 Author Organization [facility] [place] [address] Care Team Providers Name Role Phone Jazmine Baer MD Primary Care Provider Reason for Visit Reason Onset Date Comments Abnormal Labs 03/03/2021 Encounter Details Date Type Department Care Team Description 03/03/2021 Telephone Hematology and Oncol ogy at [facility] [place]ita [place] [address] Social History Tobacco Use Types Packs/Day Years Used Date Never Smoker Smokeless Tobacco: Never Used Alcohol Use Standard Drinks/Week Comments No 0 (1 standard drink = 0.6 oz pure alcoho l) Sex Assigned at Date Recorded Not on file documented as of this encounter Miscellaneous Notes Telephone Encounter - Ankita Alonzo RN - 03/03/2021 11:59 AM EDT RN received call a t12:01 from Leoncio with Lab reporting critical result(s) on patient: Glucose [address] Ignacio with above results 12:02. RN reviewed chart, pt with 11 AM clinic visit today. RN went to clinic but patient gone from clinic/ area. RN called patient, spoke with Bethanie. He was not home from [facility] yet. RN explained situation. Bethanie states Les is very good about managing his sugars and sees a MD for this. RN left message instructing patient to re-check his BG and if low to treatand re-check in 30 min and to call the MD that manages his DM if symptoms/questions/concerns. Bethanie will try to get ahold of Les. Gave RN a cell to try but states he may have left it in the truck andthat patient has trouble hearing the ringer: [phone]. RN called above number, it was a non-specific VM so left generic message requesting return call. documented in this encounter Plan of Treatment Upcoming Encounters Date Type Specialty Care Team Description 06/19/2022 Office Visit Rheumatology Richi Blackmon MD [facility] ER DR RHEUMATOLOGY [place], [place] [address] (Wo rk) Scheduled Procedures Name Priority Associated Diagnoses Date/Time EGD, UPPER GI ENDOSCOPY Family hx of colon cance r COLONOSCOPY, DIAGNOSTIC Family hx of colon cance r documented as of this encounter Visit Diagnoses Not on filedocumented in this encounter Care Teams Tool And Gauge Inspector Relationship Specialty Start Date End Date Jazmine Baer MD PCP - General 11/07/10 [address] [place] [address] documented as of this encounter
--- OUTSIDE RECORDS SUMMARY | 2022-04-11 10:47 | XMS_ITS | Encounter Summary ---
:1960 Author Organization [facility] [place] [address] Care Team Providers Name Role Phone Jazmine Baer MD Primary Care Provider Encounter Details Date Type Department Care Team Description 07/31/2021 Telephone Hematology and Oncol ogy at [facility] Daniela Lan, [place] [address] Social History Tobacco Use Types Packs/Day Years Used Date Never Smoker Smokeless Tobacco: Never Used Alcohol Use Standard Drinks/Week Comments No 0 (1 standard drink = 0.6 oz pure alcoho l) Sex Assigned at Date Recorded Not on file documented as of this encounter Miscellaneous Notes Telephone Encounter - Daniela Lan RN - 07/31/2021 4:55 PM EST Message received from legal administrative secretary: Diagnosis: Iron deficiency anemia, anemia of renal insufficiency, (Aranesp 60mcg SQ injection q2 weeks for for Hgb < 12; Venofer 300mg IV every 4 weeks for iron saturation < 30). Continue with current POC: labs and care at [facility]. RTC 03/02/22. PT TO CALL [facility] TO SET UP APPT. Services to be provided for pt are: LABS (CBC,DIFF) [facility] ON 08/01/21 AT [facility] ??Orders and necessary supporting documents HAS STANDING ORDERS S/W PT. ??HE'S GOING ON 08/01/21 documented in this encounter Plan of Treatment Upcoming Encounters Date Type Specialty Care Team Description 06/19/2022 Office Visit Rheumatology Richi Blackmon MD [facility] ER RHEUMATOLOGY [place], [place] [address] (Wo rk) Scheduled Procedures Name Priority Associated Diagnoses Date/Time EGD, UPPER GI ENDOSCOPY Family hx of colon cance r COLONOSCOPY, DIAGNOSTIC Family hx of colon cance r documented as of this encounter Visit Diagnoses Not on filedocumented in this encounter Care Teams Learning Technologist Relationship Specialty Start Date End Date Jazmine Baer MD PCP - General 11/07/10 [address] [place] [address] documented as of this encounter
--- OUTSIDE RECORDS SUMMARY | 2022-04-11 10:47 | XMS_ITS | Encounter Summary ---
:1960 Author Organization [facility] Address [facility] [place] [address] Care Team Providers Name Role Phone Jazmine Baer MD Primary Care Provider Encounter Details Date Type Department Care Team Description 08/24/2020 Office Visit Nephrology Hypertension Lea Villavicencio MD [facility] [place] [address] Stage 3b chronic kidney disease; at [facility] Slip Tender, A None Hyperuricemia; [facility] Gout, uns pecified cause, unspecified chronicity, unspecified site; Drive GUY (acute kidney injury); [place] [address] Hypertension, unspecified ty pe [phone] Social History Tobacco Use Types Packs/Day Years Used Date Never Smoker Smokeless Tobacco: Never Used Alcohol Use Standard Drinks/Week Comments No 0 (1 standard drink = 0.6 oz pure alcoho l) Sex Assigned at Date Recorded Not on file documented as of this encounter Last Filed Vital Signs Vital Sign Reading Time Taken Comments Blood Pressure 144/78 08/24/2020 10:36 AM EDT Pulse 72 08/24/2020 10:36 AM EDT Temperature - - Respiratory Rate - - Oxygen Saturation - - Inhaled Oxygen Concentration - - Weight 135.8 kg (299 lb 6.4 oz) 08/24/2020 10:36 AM EDT Height 175.3 cm (5' 9) 08/24/2020 10:36 AM EDT Body Mass Index 44.21 08/24/2020 10:36 AM EDT documented in this encounter Patient Instructions Patient InstructionsLilibeth Valdez RN - 08/24/2020 10:40 AM EDT Discussed Healthy LIfestyle=Healthy Kidney concepts. Importance of BP control, exercise, low sodium diet, and weight management in delaying the progression of kidney disease. We recommend you try to lose some weight. You are right handed. When you have IV's or blood drawn use your RIGHT arm. Save your LEFT arm from venipuncture. (i.e. Do not use your left arm for blood drawing. (use your Mediport!) Call us to have labs sent to your infusion room to avoid needle sticks. Please call. Aysha Farah RN [phone] Hydrate the day before your IVIG infusions. Keep the urine pale. Call if you feel differently (consistent symptoms of nausea, vomiting, little appeal for food, itching, change in sleep patterns, worsening energy levels, shortness of breath). These are some of the signs of worsening kidney function. We will see you sooner if you are not feeling well. Please call. Aysha Farah RN [phone] documented in this encounter Progress Notes Lea Villavicencio MD - 08/24/2020 10:40 AM EDT Images from the original note were not included. [facility] [address] [place] [address] Seen in CKD clinic Reason for CKD Clinic Visit: Systems Review and CKD management. 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 CK was initially in the 10-11,000 range but most recently it has been below 100 on a regimen that includes 2 infusions of 1 g/kg of IVIG done on 2 successive days monthly and on the first day he gets a gram of Solu-MedrolDoing well. Reports he has been well. No intercurrent illness. Minimal uremic symptoms as detailed. Anemia managed by hematology [facility] History obtained by RN Specialist: Last seen via telehealth 10/21/19 eGFR -40. No illness or hospitalizations since then. Aranesp every 2 weeks at [facility]. HA1c yesterday was 5.4. Insuliln dosing was adjusted for low blood sugars. He receives IVIG infusions every 4 weeks for 2 days, and Aranesp every two weeks (managed by Dr Ignacio). He states that he has been well since his last visit. No recent falls. No hospitalizations. He gets his first COVID vaccination this coming Wednesday, August 26, 2020 Review of Systems:?Sign/Symptom ?Comments ?? Energy??level/fatigue: Yes - Varies day to day. Most days out and about doing things but gets tired and legs fatigue easily, tired after infusion. Uses cane. 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 Change in sleep patterns: Yes - sleeps 6 hrs per night, but doesn't sleep well. Goes to bed around 11pm. Gets up by 6am. Solumedrol keeps him awake; tosses and turns. Nocturia: Yes - 1x. Appetite changes: Yes - Not hungry eating 3 meals. He restricts sugar for diabetes. He doesn't cook with salt but uses premade and processed foods Food aversions: Yes - Doesn't prefer red meat any more - picky eater at baseline Nausea: Improved, no zofran for 3 weeks. Vomiting: No Bowels: No - diarrhea or constipation. Edema: Yes - pitting present; pt states better in AM Shortness of breath: Yes - with walking with mask Orthopnea/PND: No PND; 2 pillows Muscle Cramping: No Cold intolerance: Yes, feels especially cold. Itching: Yes - some in arms, lower legs, back. Using gold polo lotion. Bruising/bleeding: Yes - no bruising, having nose bleeds (up to 2-3/week but this week none. ), no black stools. Mental Status Changes: No change Recent Home Blood Pressure Control: 128/68 yesterday at MD office. Not taking at home. Recent Home Diabetic Management: checks 2 x daily, 139mg/dl this morning. Last HA1c-5.4 yesterday Recent Lipid Management: allergic to statins. ?? Advance Directives: he has the paperwork at home but hasn't done them. ?? How has your health been in the last 4 weeks???Poor, Fair, Good, Very Good, Excellent. ?? Additional CCM Comments: Social Determinant Date/Comments Food Security/ Nutritional Education Low salt diet. Receives food stamps. Stable Housing/ Safety Concerns Stable housing Community Supports/ Transportation issues/ Appointment coordination Lives with spouse. 4 adult sons live nearby. Supportive family network. 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 Has been able to afford his co-pays for medications. SSDI is primary income. Pt is disabled and not able to work. ?? Hepatitis B Status: ?Serum Testing ?Date of Testing ?Results Hep B sAb/Hep B sAg Not tested Vaccination Status: Not discussed. ?? Education: [facility] Phase One Booklet, Options video, Kidney Beginnings, Decision Aid:??none given 12/25 - [facility] Nutrition Counter and Potassium Content of Foods given.?? Anticipated Renal Replacement Therapy Plan: not discussed. Transplant evaluation: ??Not discussed ?? Fistula Date/Type of Initial Access/Surgeon:??He is right handed; he has a mediport on the right side. When you have IV's or blood drawn use your RIGHT arm. Save your LEFT arm from venipuncture. (i.e. Do not use your left arm for blood drawing.) Patient has a Mediport in his right neck for his monthly infusions. Immunizations Hepatitis B Vaccine, Adult 08/10/2014, 01/27/2014 Influenza Vaccine w/Preservative, Split 04/29/2015, 03/10/2014, 03/31/2019 Influenza Vaccine, Whole 03/10/2009, 04/23/2006 Pneumococcal Polyvalent 23 08/13/2014 PMH: Patient Active Problem List Diagnosis Code ??? Myopathy G72.9 ??? Nausea and vomiting R11.2 ??? Diabetes mellitus, type II E11.9 ??? Hepatosplenomegaly R16.2 ??? Durand's esophagus K22.70 ??? Nonalcoholic steatohepatitis (HORTON) K75.81 ??? Anemia D64.9 ??? Skin rash R21 ??? Imbalance R26.89 ??? Myositis M60.9 ??? Gout M10.9 ??? Thrombocytopenia D69.6 ??? Chronic fatigue R53.82 ??? CKD (chronic kidney disease) stage 3, GFR 30-59 ml/min N18.30 ??? Anemia, iron deficiency D50.9 Allergies Allergen Reactions ??? Methotrexate Hives, Itching and Rash ??? Morphine Itching ??? Fhiohoz-Ddr-Aky Reductase Inhibitors Myopathy Outpatient Medications Marked as Taking for the 08/24/20 encounter (Office Visit) with Catrachito Villavicencio MD Medication Sig Dispense Refill ??? BD Ultra-Fine Short Pen Needle 31 gauge x 5/16 Needle Inject 1 each subcutaneously 5 times daily. ??? allopurinoL (Zyloprim) 100 mg Tablet Take 400 mg by mouth daily. ??? darbepoetin matt in polysorbat (ARANESP, IN POLYSORBATE, INJ) Inject as directed every 14 days. ??? ondansetron (Zofran) 4 mg Tablet Take 4 mg by mouth every 8 hours as needed. ??? sodium chloride 0.9% SolP 100 mL with methylPREDNISolone sodium succinate (PF) 1,000 mg/8 mL SolR 500 mg Inject 125 mg into the vein once. ONCE A MONTH with 1st IVIG infusion. 'SOLUMEDROL' ??? metoprolol succinate (TOPROL-XL) 50 mg Tablet Sustained Release 24 hr Take 50 mg by mouth daily. ??? HUMALOG KWIKPEN 100 unit/mL Insulin Pen 35-40 Units. 3 ??? ONETOUCH ULTRA TEST Strip 1 each by Other route 3 times daily. 3 ??? IMMUNE GLOBULIN,GAMMA,IGG, (IMMUNE GLOBULIN, HUMAN,, IGG, IV) 1,200 mg intravenously twice monthly. ??? terazosin (HYTRIN) 5 mg Capsule Take 1 capsule by mouth nightly. 3 ??? insulin glargine (LANTUS SOLOSTAR) Insulin Pen Inject 30-55 Units subcutaneously 2 times daily. ??? furosemide (LASIX) 20 mg Tablet Take 1 tablet by mouth daily. 30 tablet 12 ??? multivitamin Capsule Take 1 capsule by mouth daily. ??? lisinopril-hydrochlorothiazide (PRINZIDE;ZESTORETIC) 20-12.5 mg per tablet Take 2 tablets by mouth daily. Physical Exam: BP 144/78 Pulse 72 Ht 175.3 cm (5' 9) Wt 135.8 kg (299 lb 6.4 oz) BMI 44.21 kg/m?? General appearance Plethoric obese male, Appears well, alert Head Atraumatic Eyes ENT Neck Respiratory COR/Vascular Abdomen Skin Neuro Intact. Normal facies, gait. Normal speech and mentation Asterixis None present Extremities Trace edema L + R to mid kim. No sacral edema Psych Mood is appropriate Labs Results for BUCKY BETH ( ) as of 08/24/2020 15:25 Ref. Range 05/30/2020 07:25 06/13/2020 07:20 08/24/2020 09:32 08/24/2020 09:38 WBC Latest Ref Range: 4.0 - 9.5 x10(3)/mcL 3.60 (EXTERNAL/ABN) 3.99 (EXTERNAL/ABN) 4.4 RBC Latest Ref Range: 4.58 - 5.54 x10(6)/mcL 3.63 (L) Hemoglobin Latest Ref Range: 13.7 - 16.5 gm/dL 11.1 (EXTERNAL/ABN) 11.4 (EXTERNAL/ABN) 11.8 (L) Hematocrit Latest Ref Range: 40.5 - 48.5 % 34.8 (EXTERNAL/ABN) 36.9 (EXTERNAL/ABN) 36.7 (L) MCV Latest Ref Range: 82.9 - 93.1 fL 101.1 (H) MCH Latest Ref Range: 27.5 - 32.1 pg 32.5 (H) MCHC Latest Ref Range: 32.0 - 35.7 gm/dL 32.2 RDWSD Latest Ref Range: 36.0 - 45.0 fL 58.4 (H) RDWCV Latest Ref Range: 11.4 - 13.8 % 15.5 (H) Platelets Latest Ref Range: 145 - 357 x10(3)/mcL 48 (EXTERNAL/ABN) 62 (EXTERNAL/ABN) 62 (L) MPV Latest Ref Range: 7.6 - 12.9 fL 11.4 nRBC % Auto Latest Units: % 0.0 nRBC Abs Auto Latest Ref Range: 0.000 - 0.000 x10(3)/mcL 0.000 Neutr Abs (ANC) Latest Ref Range: 1 - 6 x10(3)/mcL 2.13 2.32 3.01 Neutrophils % Latest Units: % 67.9 Immature Gran % Latest Units: % 0.00 Lymphocytes % Latest Units: % 11.3 Monocytes % Latest Units: % 10.4 Eosinophils % Latest Units: % 9.3 Basophils % Latest Units: % 1.1 Tamara Gran Abs Latest Ref Range: 0.00 - 0.04 x10(3)/mcL 0.00 Lymphocytes Abs Latest Ref Range: 0.9 - 3.2 x10(3)/mcL 0.5 (L) Monocyte Abs Latest Ref Range: 0.3 - 0.9 x10(3)/mcL 0.5 Eosinophils Abs Latest Ref Range: 0.0 - 0.4 x10(3)/mcL 0.4 Basophils Abs Latest Ref Range: 0.0 - 0.1 x10(3)/mcL 0.0 Lymphocyte Abs Latest Ref Range: 1.2 - 3.4 0.59 (EXTERNAL/ABN) 0.62 (EXTERNAL/ABN) Sodium Latest Ref Range: 135 - 145 mmol/L 143 Potassium Latest Ref Range: 3.5 - 5.0 mmol/L 4.1 Chloride Latest Ref Range: 98 - 107 mmol/L 107 CO2 Latest Ref Range: 22 - 31 mmol/L 25 Anion Gap Latest Ref Range: 5 - 15 mmol/L 11 BUN Latest Ref Range: 10 - 20 mg/dL 44 (H) Creatinine Latest Ref Range: 0.80 - 1.50 mg/dL 2.09 (EXTERNAL/ABN) 1.92 (EXTERNAL/ABN) 1.59 (H) Estimated GFR Latest Ref Range: >=60 mL/min/1.73 m?? 32.34 (EXTERNAL/ABN) 35.67 (EXTERNAL/ABN) 46(L) Calcium Latest Ref Range: 8.5 - 10.5 mg/dL 8.9 Phosphorus Latest Ref Range: 2.5 - 4.5 mg/dL 3.6 Uric Acid Latest Ref Range: 3.5 - 8.5 mg/dL 4.5 Glucose Lvl Latest Ref Range: 65 - 199 mg/dL 83 Albumin Latest Ref Range: 3.2 - 5.2 gm/dL 3.4 Iron Latest Ref Range: 65 - 175 66 TIBC Latest Ref Range: 250 - 450 301 Transferrin Latest Ref Range: 20 - 55 22 25-OH Vit D Total Latest Ref Range: 21 - 100 ng/mL 44 25-OH Vit D Interp Unknown Sufficient PTH Latest Ref Range: 15 - 65 pg/mL 56 Alb/Cr Ratio, Random Latest Ref Range: 0 - 29 mcg/mg Cr 111 (H) U Albumin Conc, Random Latest Units: mg/L 49.8 U Creatinine Latest Units: mg/dL 45 FILM LIBRARY STORAGE ONLY DX SPINE Unknown Problem/Goal/Assessment/Plan: Problem: Chronic Kidney Disease Goal: Reduce rate of progression Education for CKD Stage specific issues Results: Estimated GFR (CKD-EPI): 46 ml/min/1.73m2 CKD Stage G3a A2 Potassium Level - 4.1 CO2 level - 25 Uric Acid level - 4.5 Changes discussed with RN Specialist: Discussed Healthy LIfestyle=Healthy Kidney concepts. Importance of BP control, exercise, low sodium diet, and weight management in delaying the progression of kidney disease. We recommend you try to lose some weight. You are right handed. When you have IV's or blood drawn use your RIGHT arm. Save your LEFT arm from venipuncture. (i.e. Do not use your left arm for blood drawing. (use your Mediport!) Call us to have labs sent to your infusion room to avoid needle sticks. Please call. Aysha Farah RN [phone] Hydrate the day before your IVIG infusions. Keep the urine pale. Call if you feel differently (consistent symptoms of nausea, vomiting, little appeal for food, itching, change in sleep patterns, worsening energy levels, shortness of breath). These are some of the signs of worsening kidney function. We will see you sooner if you are not feeling well. Please call. Aysha Farah RN [phone] Problem: Management of Anemia related to Chronic Kidney Disease (CKD) Goal: Hgb 9.5-10.9 g/dl Ferritin>100ng/ml TSAT>20% Today's Results Hgb - 11.8 Ferritin - not checked TSAT - not checked Receiving erythropoetic stimulating agent? No Last IV Iron replacement therapy (Venofer), Date : Problem: Hypertension Goal: Urine alb:cr ratio <30mg/g - 140/90, Urine alb:cr ratio > 30mg/g - 130/80 Sodium intake < 2 Gm per day. Results: BP today - 144/78 Problem: Proteinuria Goal: Pro:Cr ratio <0.2mg/mg Alb:Cr ratio < 30mg/g Today's results: Pro:Cr ratio Alb:Cr ratio 111 Changes discussed with RN Specialist: Patient takes lisinopril/HCTZ Problem: Bone Disease Goal: Stage 3 PTH: 35-70 pg/ml Phos 2.7-4.6 Ca 8.5-10.5mg/dl Stage 4 PTH: 70-110 pg/ml Phos 2.7-4.6 Ca 8.5-10.5mg/dl Stage 5 PTH: 150-300 pg/ml Phos 3.5-5.5 Ca 8.5-10.5mg/dl Results: PTH today -56 (pt not taking calcitriol) Phos today -3.6 (pt not taking binders) Calcium today - 8.9 Problem: Nutrition Goal: Albumin > 4.0gm/dl BMI 20-25 kg/m2 Results: Albumin today - 3.4 Changes discussed with RN Specialist: None A/P: Problem: Diabetes Goal: HA1C ~ 7.0% Results: HA1C today - Random Glucose - 83: Problem: Dyslipidemia Goal: LDL < 100 mg/dl Results: LDL not checked today - Summary: Stable CKD stage IIIb A1 without proteinuria 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 CK was initially in the 10-11,000 range but most recently it has been below 100 on a regimen that includes 2 infusions of 1 g/kg of IVIG done on 2 successive days monthly and on the first day he gets a gram of Solu-MedrolDoing well. Reports he has been well. No intercurrent illness. Minimal uremic symptoms as detailed. Anemia managed by hematology [facility] Return to CKD clinic: 6 months documented in this encounter Plan of Treatment Upcoming Encounters Date Type Specialty Care Team Description 06/19/2022 Office Visit Rheumatology Richi Blackmon MD [facility] [address] RHEUMATOLOGY [place], [place] [address] (Wo rk) Scheduled Procedures Name [...] Acute kidney failure, unspecified Hypertension, unspecified type documented in this encounter Care Teams Ward Maid Relationship Specialty Start Date End Date Jazmine Baer MD PCP - General 11/07/10 [address] [place] [address] documented as of this encounter
--- OUTSIDE RECORDS SUMMARY | 2022-04-11 10:47 | XMS_ITS | Encounter Summary ---
:1960 Author Organization [facility] [place] [address] Care Team Providers Name Role Phone Jazmine Baer MD Primary Care Provider Encounter Details Date Type Department Care Team Description 10/02/2021 Telephone Hematology and [place] [facility] [address] Social History Tobacco Use Types Packs/Day Years Used Date Never Smoker Smokeless Tobacco: Never Used Alcohol Use Standard Drinks/Week Comments No 0 (1 standard drink = 0.6 oz pure alcoho l) Sex Assigned at Date Recorded Not on file documented as of this encounter Miscellaneous Notes Telephone Encounter - Ankita Alonzo RN - 10/02/2021 8:14 AM EDT RN received call at 08:15 from Aquil[place] with [facility] Lab reporting critical result(s) on patient: Calcium <5.0 Potassium 2.7 RN requested additional non-critical value(s): RN notified Karen Lugo APRN of above results 08:16. Patient with LONNIE and anemia of renal insufficiency getting q4 week Venofer with labs at [facility] beforehand. RN called [facility] infusion room at [phone] and spoke with Mavis. Patient has offered no complaints. RN asked re: arrythmias or muscle cramps, Mavis says he denies. Per CELL ATTENDANT orders, RN requested re-draw of CMP. Mavis repeated this information correctly. documented in this encounter Plan of Treatment Upcoming Encounters Date Type Specialty Care Team Description 06/19/2022 Office Visit Rheumatology Richi Blackmon MD [facility] DR RHEUMATOLOGY [place], [place] [address] (Wo rk) Scheduled Procedures Name Priority Associated Diagnoses Date/Time EGD, UPPER GI ENDOSCOPY Family hx of colon cance r COLONOSCOPY, DIAGNOSTIC Family hx of colon cance r documented as of this encounter Visit Diagnoses Not on filedocumented in this encounter Care Teams Pairing Machine Operator Relationship Specialty Start Date End Date Jazmine Baer MD PCP - General 11/07/10 [address] [place] [address] documented as of this encounter
--- OUTSIDE RECORDS SUMMARY | 2022-04-11 10:47 | XMS_ITS | Encounter Summary ---
:1960 Author Organization [facility] [address] Care Team Providers Name Role Phone Jazmine Baer MD Primary Care Provider Encounter Details Date Type Department Care Team Description 09/14/2020 Office Visit [place] [facility] [place]rine Gomes, Myopathy; [facility] SEISMOLOGY TECHNICAL OFFICER Long-term current use of intravenous imm unoglobulin (IVIG); [facility] Gout, unspecified cause, uns pecified chronicity, unspecified site; [place] [address] Center terminal carman current use of systemic steroi ds [phone] [place] [address] Social History Tobacco Use Types Packs/Day Years Used Date Never Smoker Smokeless Tobacco: Never Used Alcohol Use Standard Drinks/Week Comments No 0 (1 standard drink = 0.6 oz pure alcoho l) Sex Assigned at Date Recorded Not on file documented as of this encounter Last Filed Vital Signs Vital Sign Reading Time Taken Comments Blood Pressure 149/65 09/14/2020 9:40 AM EDT Pulse 74 09/14/2020 9:40 AM EDT Temperature 37 ??C (98.6 ??F) 09/14/2020 9:40 AM EDT Respiratory Rate - - Oxygen Saturation 99% 09/14/2020 9:40 AM EDT Inhaled Oxygen Concentration - - Weight 134.3 kg (296 lb) 09/14/2020 9:40 AM EDT Height 171.4 cm (5' 7.48) 09/14/2020 9:40 AM EDT Body Mass Index 45.7 09/14/2020 9:40 AM EDT documented in this encounter Patient Instructions Patient InstructionsCorrine Gomes APRN - 09/14/2020 10:00 AM EDT I am happy to try to work your appointments in rheumatology around your other specialist appointments if possible. I am usually here every Saturday, Saturday, and . I have meetings until about 10 or 11 on Tuesdays. I alternate Mondays and Fridays. So, I am here 4 days per week. My last PM appointment is at 3PM. I will decrease solumedrol by 1/2 for your next infusion, then in half again for the next infusion, then stop -- as long as you are okay with the result. 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 on 2 successive days with Solu-medrol on the first day (intially 1 gram, then decreased to 500 mg September 2019; then decreased to 250 mg March and April 2020 infusions; then decreased to 125 mg startingwith 05/13/2020 infusion). Solumedrol taper initiated due to affect on diabetes control and weight. ?? Did not tolerate decreased IVIG dose (had increased muscle weakness, reduced muscle tone) with the last attempt in about 2016 by patient report. ?? Failed azathioprine, mycophenolate, rituximab, and methotrexate (intolerant of MTX due to rash). Gout: ?? Started in the great toes MTPs bilaterally several years ago. Then when he was in [place] a couple 3 [place] [facility] [place] his knee drained and says it was related to gout. He has not had follow up for the knee since it was drained. ?? No flares on allopurinol 400 mg. Has not needed to take any colchicine. Uric acid level 4.[address] [facility] 08/2020. Interval History: Les presents today for follow up of stain-induced myopathy and gout. Last seen 03/15/2020 for his initial visit with me. Overall doing well with monthly IVIG infusions. We have been tapering his Solu-medrol. Last infusion was 06/13-10/2020. Tolerating treatment well. He is maintaining COVID19 precautions re social distancing and masking. Moderna vaccine #2 scheduled for next week. Medications prescribed by Rheumatology: ?? Infusions at [facility]: Last infusion was last week by patient report. Tolerates well without s/s fluid overload by patient report. ?? IVIG infusions 1000 mg/kg (127 grams) 2 doses per month on successive days ?? Solumedrol 125 mg with 1st IVIG (see taper notes in Rheumatology history) ?? Acetaminophen 650 mg + diphenhydramine 25 mg with each infusion ?? Allopurinol 400 mg daily ?? Colchicine 0.6 mg daily for flares only (has not needed) Myopathy: Had been doing well at baseline until 2-3 days before infusions with mild symptoms including some muscle weakness, eg when climbing a flight of stairs he had to pull himself up by the railingif he has done too much activity. Overall he feels that his clinical picture has not changed and he would like to proceed with decreasing solumedrol. Low back pain: noted at 05/2020 OV resolved shortly after the appointment. Has muscle relaxant to use if needed. Baseline physical function with treatment as reviewed at 03/2020 visit: ?? Physical function limited in that he can't do as much as he used to be able to do. ?? Picking up something . 50 lbs is difficult. ?? Used to get underneath cars and work on them but since the myopathy he has trouble getting up offthe ground due to overall weakness. ?? Actvity level -- walks around the house, some yard work. Used to snow blow the yard in the winterbut doesn't know if he can continue to do that much activity. ?? Uses a cane when he is out and about. L leg (corrected from 03/2020 notes) sometimes feels weak -- knee will give out. Other ongoing issues as reviewed at 03/2020 visit: ?? Diabetes (reviewed today): Good control with recent HgbA1c 5.4% by patient report. Diabetes managed by primary care; has seen a transportation associate at his local health center; not eating as much, doesn't feel as hungry. ?? DEAN: Had a sleep apnea consult and says the specialist thought he likely had sleep apnea; did nothave a sleep study because he does not think he would tolerate a CPAP. ?? Obesity (reviewed today): He has lost 2 lbs by our scale since his last visit. Weight went up about 30 lbs since COVID -- he was getting out more before the pandemic. Hard to walk around with a maskdue to difficulty breathing. He used to get a lot of his activity walking around in stores and has not been doing that at all with pandemic. ?? Hypertension: Checks BP at home with good control reported. Specialists: ?? Lea Villavicencio MD, [facility] Nephrology for CKD. Last seen 08/24/2020. Note reviewed with no changes totreatment. ?? Karen Lugo ?? Sees hematology for Venofer infusions at [facility]. Last seen 08/29/2020 with no changes in treatment. Says he has had 3 bone marrow biopsies due to concern about cause of iron-deficiency anemia. ?? Followed by Dr. Silvestre for spot on liver. Review of Systems: General: Denies generalized pain, fevers, chills, recent illness Cardiovascular: Denies chest pain, CALDERON though does not exert himself. Pulmonary: Denies SOB, cough, hemoptysis. See Interval History re sleep apnea. Gastrointestinal: Denies abdominal pain, nausea, vomiting, Musculoskeletal: See Interval History. Neurologic: Denies dizziness, presyncope, syncope Psychiatric: Stable mood. See Interval History re sleep apnea. Family History Problem Relation Age of Onset ??? Colorectal Cancer Mother 59 ??? Diabetes Mother ??? Obesity Mother ??? Myocardial Infarction Father first AK at 36 ??? Coronary Artery Disease Father ??? Hypertension Father ??? Hyperlipidemia Father ??? Stomach Cancer Other uncle ??? Type 2 Diabetes Paternal Uncle ??? Obesity Sister ??? Type 2 Diabetes Sister ??? Cirrhosis Paternal Aunt Alcohol Abuse Social History: Smoking Status Never Smoker Smokeless Tobacco Status Never Used Alcohol Use No Drug Use No Social History Social History Narrative Lives with of 35 years. Feels safe at home. Disabled since 2009. 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 Physical Examination: Patient Vitals for the past 24 hrs: Temp Pulse BP SpO2 09/14/20 0940 37 ??C (98.6 ??F) 74 149/65 99 % General: Morbidly obese, alert and oriented male in no acute distress. Some difficulty with rising from chair and uses arm rests for support with this action. Using a cane with ambulation, steady gait.Pleasant affect. Appears to be a good historian. HEENT: No scleral injection, no icterus Neck: Supple, no lymphadenopathy Heart: Regular rate and rhythm, no murmur/rub/gallop Lungs: Clear to auscultation (no wheezes, rales, rubs) with expected respiratory excursion Skin: no rashes or obvious lesions on exposed areas Neuro: Gait even and co-ordinated using a cane. Speech clearly articulated. Stereotype Finisher strength +4/5 = bilaterally. Strength with lower leg extension against light resistance +3/5 = bilaterally. Decreased strength with ankle flexion against resistance on L compared to R (L 2-3/5, R 4/5). Musculature: No obvious atrophy. Extremities: Hands: No synovitis, swelling, tenderness Wrists: normal ROM, no swelling or tenderness DATA: Labs 03/07/2020 with oncology. Ordered by Richard Basurto MD, in [place], [place]. Lab reports are on file from 03/07/20 showing creatinine 1.95, GFR 35, mild anemia with RBC 3.6, hemoglobin 11.4, hematocrit 36.6, MCV 100.8. Platelets were low at 69. CK 01/25/2020 = 73. 06/13/2020 (OSH): Stable anemia; creatinine 1.68 with GFR 41; CK 61; CRP 0.81 mg/dL. 09/05/2020 labs scanned (ordered by outside provider with ck 79, crp 0.94 mg/dl) Impression: Bucky Acevedo is a 60 y.o. male who presents today for continued management of statin induced myopathy and gout. Statin induced myopathy -- Symptoms have been stable with IVIG infusions (1000 mg/kg = 127 grams) monthly (2 doses on consecutive days) at [facility] plus Solu- Medrol on day 1 tapered to 125 mg starting with05/13/2020 infusion. Concern that he noticed some increased muscle weakness 2-3 days prior to 06/13/2020 infusion which has persisted with subsequent infusions though less pronounced. Resolution of symptoms after the infusion. He would like to continue tapering solumedrol. Gout: No flares on allopurinol 400 mg daily and colchicine 0.6 mg daily. Plan: 1. Continue IVIG infusions 1000 mg/kg (127 grams) 2 doses per month on successive days. May need to do a dose adjustment since his weight has increased though he is working on getting some of this weight off so we will hold on dose adjustment for now. 2. Continue Solu-Medrol with first IVIG infusion but will drop by approximately 1/2 for next infusion then 1/2 again for subsequent infusion then DC as long as this is tolerated. Orders to be sent to [facility]. He will let me know how this works for him. Discussed with Enedina Guzman MD, and alternate approach would be to do an oral steroid taper if needed though will hold off on that for now. 3. Follow up 6 months in-person, sooner if needed. Patient Instructions I am happy to try to work your appointments in rheumatology around your other specialist appointments if possible. I am usually here every Saturday, Saturday, and . I have meetings until about 10 or 11 on Tuesdays. I alternate Mondays and Fridays. So, I am here 4 days per week. My last PM appointment is at 3PM. I will decrease solumedrol by 1/2 for your next infusion, then in half again for the next infusion, then stop -- as long as you are okay with the result. Total time associated with visit: 50 minutes CC: Jazmine Baer MD documented in this encounter Plan of Treatment Upcoming Encounters Date Type Specialty Care Team Description 06/19/2022 Office Visit Rheumatology Richi Blackmon MD [address] [facility] [address] RHEUMATOLOGY [place], [place] [address] (Wo rk) Scheduled Procedures Name Priority Associated Diagnoses Date/Time EGD, UPPER GI ENDOSCOPY Family hx of colon cance r COLONOSCOPY, DIAGNOSTIC Family hx of colon cance r documented as of this encounter Visit Diagnoses Diagnosis Myopathy Myopathy, unspecified Long-term current use of intravenous imm unoglobulin (IVIG) Gout, unspecified cause, unspecified chr onicity, unspecified site terminal carman current use of systemic steroi ds Encounter for long-term (current) use of steroids documented in this encounter Care Teams Costume Mistress Relationship Specialty Start Date End Date Jazmine Baer MD PCP - General 11/07/10 [address] [place] [address] documented as of this encounter
--- OUTSIDE RECORDS SUMMARY | 2022-04-11 10:47 | XMS_ITS | Encounter Summary ---
:1960 Author Organization [facility] [place] [address] Care Team Providers Name Role Phone Jazmine Baer MD Primary Care Provider Encounter Details Date Type Department Care Team Description 06/24/2021 Orders Only Hematology and Oncology at Karen Camilo APRN [facility] Hilda shafer HEMATOLOGY/[place] [address] DEPT. [phone] [place] [id number] (Wo rk) Social History Tobacco Use Types Packs/Day Years Used Date Never Smoker Smokeless Tobacco: Never Used Alcohol Use Standard Drinks/Week Comments No 0 (1 standard drink = 0.6 oz pure alcoho l) Sex Assigned at Date Recorded Not on file documented as of this encounter Progress Notes Karen Lugo APRN - 06/24/2021 8:08 PM EST Date: 06/24/2021 Patient Name: Bucky Acevedo : 1960 Diagnosis: Iron deficiency anemia, anemia of renal insufficiency Referral to [site]: [facility] Lab orders: ?? CBC, creatinine q2 weeks; iron saturation q4 weeks Infusion Orders: Standing orders x 12 months ?? Aranesp 60mcg SQ injection q2 weeks for for Hgb < 12 ?? Venofer 300mg IV every 4 weeks for iron saturation < 30 Signature: Karen Lugo, MSN, HOT HEADER OPERATOR beeper # [id number] documented in this encounter Plan of Treatment Upcoming Encounters Date Type Specialty Care Team Description 06/19/2022 Office Visit Rheumatology Richi Blackmon MD [address] [facility] [address] RHEUMATOLOGY [place], [place] [address] (Wo rk) Scheduled Procedures Name Priority Associated Diagnoses Date/Time EGD, UPPER GI ENDOSCOPY Family hx of colon cance r COLONOSCOPY, DIAGNOSTIC Family hx of colon cance r documented as of this encounter Visit Diagnoses Not on filedocumented in this encounter Care Teams Debt Recovery Officer Relationship Specialty Start Date End Date Jazmine Baer MD PCP - General 11/07/10 [address] [place] [address] documented as of this encounter
--- OUTSIDE RECORDS SUMMARY | 2022-04-11 10:47 | XMS_ITS | Encounter Summary ---
:1960 Author Organization [place] [address] Care Team Providers Name Role Phone Jazmine Baer MD Primary Care Provider Encounter Details Date Type Department Care Team Description 03/03/2021 Hospital Encounter Hematology and Iron de ficiency anemia, unspecified iron deficiency anemia type; Oncology at [facility] [place] [address] Social History Tobacco Use Types Packs/Day Years Used Date Never Smoker Smokeless Tobacco: Never Used Alcohol Use Standard Drinks/Week Comments No 0 (1 standard drink = 0.6 oz pure alcoho l) Sex Assigned at Date Recorded Not on file documented as of this encounter Medications at Time of Discharge Medication Sig Dispensed Refills Start Date End Date ondansetron ODT DISSOLVE 1 TABLET IN 0 02/16/2021 (Zofran-ODT) 4 mg Tablet, MOUTH TWICE DAILY Rapid Dissolve NEEDED FOR NAUSEA BD Ultra-Fine Short Pen Inject 1 each [...] Take 1 capsule by 0 mouth daily. losartan-hydrochlorothiaz Take 2 tablets by 0 05/02/2021 howard (HYZAAR) 50-12.5 mg mouth daily. Tablet ondansetron (Zofran) 4 mg Take 4 mg [...] 06/19/2022 Office Visit Rheumatology Richi Blackmon MD [facility] RHEUMATOLOGY [place], [place] [address] (Wo rk) Scheduled Procedures Name Priority Associated Diagnoses Date/Time EGD, UPPER GI ENDOSCOPY Family hx of colon cance r COLONOSCOPY, DIAGNOSTIC Family hx of colon cance r documented as of this encounter Procedures Procedure Name Priority Date/Time Associated Comments Diagnosis HEMOGRAM STAT 03/03/2021 10:48 Bicytopenia Results for this AM EDT Iron deficiency procedure ar e in anemia, unspecified the resu lts iron deficiency section. anemia type DIFFERENTIAL, STAT 03/03/2021 10:48 Bicytopenia Results for this AUTOMATED AM EDT Iron deficiency procedure ar e in anemia, unspecified the resu lts iron deficiency section. anemia type HC IRON BINDING STAT 03/03/2021 10:48 Iron deficiency Resul ts for this CAPACITY AM EDT anemia, unspecified procedur e are in iron deficiency the results anemia type section. HC CBC,PLT & AUTO DIFF STAT 03/03/2021 10:48 Bicytope ge AM EDT Iron deficiency anemia, unspecified iron deficiency anemia type COMPREHENSIVE STAT 03/03/2021 10:48 Bicytopenia Results fo r this METABOLIC PANEL AM EDT procedure ar e in (NON-FASTING) the results section. documented in this encounter Results (ABNORMAL) Differential, Automated (03/03/2021 10:48 AM EDT) [facility] Method Time Signature Neutrophils % 68.6 % [facility] Neutr Abs (ANC) 2.52 1.70 - [facility] 6.10 [facility] x10(3)/[facility] LABORATORY Lymphocytes % 13.1 % [facility] Lymphocytes Abs 0.5 (L) 0.9 - 3.2 [facility] x10(3)/[facility] LABORATORY Monocytes % 10.9 % [facility] Monocyte Abs 0.4 0.3 - 0.9 [facility] x10(3)/[facility] LABORATORY Eosinophils % 6.0 % [facility] Eosinophils Abs 0.2 0.0 - 0.4 [facility] x10(3)/[facility] LABORATORY Basophils % 1.1 % [facility] Basophils Abs 0.0 0.0 - 0.1 [facility] x10(3)/[facility] LABORATORY Immature Gran % 0.30 % [facility] Comment: Immature granulocytes(IG's)percentage an d absolute count will include metamyelocytes, myelocytes, and promyelo cytes. Blood smears from CBCs yielding IG's will be scanned manually for concor dance. If this scan disagrees with the automated IG or if promyelocytes are not ed, a manual differential will be performed. Tamara Gran Abs 0.01 0.00 - 0.04 x10(3)/[facility] LABORATORY Specimen Anatomical Collection Method Collection Time Receive d Time (Source) Location / / Volume Laterality Blood 03/03/2021 10:48 03/03/2021 AM EDT 11:07 AM EDT Resulting Agency Comment Spec In Lab Karen Lugo SUPERVISOR DRYING HEMATOLOGY ORDERABLES Performing Organization Address City/State/[place] [address] (ABNORMAL) Hemogram (03/03/2021 10:48 AM EDT) [facility] gist Method Time Signature WBC 3.7 (L) 4.0 - 9.5 [facility] x10(3)/[facility] LABORATORY RBC 3.80 (L) 4.58 - [facility] x10(6)/[facility] LABORATORY Hemoglobin 12.4 (L) 13.7 - [facility] 16.5 g/dL [facility]ORY Hematocrit 39.2 (L) 40.5 - [facility] 48.5 % [facility] MCV 103.2 (H) 82.9 - [facility] 93.1 [facility] LABORATORY MCH 32.6 (H) 27.5 - [facility] 32.1 pg [facility] MCHC 31.6 (L) 32.0 - [facility] 35.7 g/dL [facility] Platelets 69 (L) 145 - 357 [facility] x10(3)/[facility] LABORATORY RDWSD 60.2 (H) 36.0 - [facility].0 [facility] LAB[facility]ATORY RDWCV 15.8 (H) 11.4 - [facility] JUVENTINO 13.8 % [facility] LABORATORY MPV 11.0 7.6 - 12.9 [facility] LABORATORY nRBC % Auto 0.0 % [facility] nRBC Abs Auto 0.000 0.000 - [facility] 0.000 [facility] x10(3)/[facility] LABORATORY Specimen Anatomical Collection Method Collection Time Receive d Time (Source) Location / / Volume Laterality Blood 03/03/2021 10:48 03/03/2021 AM EDT 11:07 AM EDT Resulting Agency Comment Spec In Lab Karen Lugo SUPERVISOR DRYING HEMATOLOGY ORDERABLES Performing Organization Address City/State/[place] [address] (ABNORMAL) Comprehensive metabolic panel (non-fasting) (03/03/2021 10:48 AM EDT) P athologist Signature Glucose Lvl 49 65 - 199 [facility] (Critical) mg/dL [facility] Comment: Called by: JESUS, Read back by: Ankita Mulligan rt, Date/Time: 03/03/21 11:55. Diabetes: >=200 mg/dL plus symptoms BUN 46 (H) 10 - 20 mg/dL [facility] Creatinine 1.67 (H) 0.80 - 1.50 mg/dL [facility] Sodium 139 135 - 145 mmol/L [facility] Potassium 4.1 3.5 - 5.0 mmol/L [facility] Anion Gap 7 5 - 15 mmol/L [facility] Calcium 8.9 8.5 - 10.5 mg/dL [facility] Total Protein 8.5 (H) 6.1 - 8.0 g/dL [facility] Albumin 3.3 3.2 - 5.2 g/dL [facility] AST 33 0 - 39 unit/L [facility] ALT 21 0 - 55 unit/L [facility] Alk Phos 135 (H) 40 - 130 unit/L [facility] Total Bilirubin 0.6 0.2 - 1.3 mg/dL [facility] Estimated GFR 43 (L) >=60 mL/min/1.73 [...] Agency Comment Spec In Lab Karen Lugo SUPERVISOR DRYING CHEMISTRY ORDERABLES Performing Organization Address City/State/[place] [address] Iron and TIBC (03/03/2021 10:48 AM EDT) P athologist Signature Iron 66 45 - 160 [facility] mcg/dL [facility] TIBC 262 250 - 450 [facility] mcg/dL [facility] Iron Saturation 25 20 - 50 % [facility] Specimen Anatomical Collection Method Collection Time Receive d Time (Source) Location / / Volume Laterality Blood 03/03/2021 10:48 03/03/2021 AM EDT 11:07 AM EDT Resulting Agency Comment Spec In Lab Karen Lugo SUPERVISOR DRYING CHEMISTRY ORDERABLES Performing Organization Address City/State/[place] [address] documented in this encounter Visit Diagnoses Diagnosis Iron deficiency anemia, unspecified iron deficiency anemia type Bicytopenia Other specified diseases of blood and bl ood-forming organs documented in this encounter Care Teams Mortgage Processor Relationship Specialty Start Date End Date Jazmine Baer MD PCP - General 11/07/10 [address] [place] [address] documented as of this encounter
--- OUTSIDE RECORDS SUMMARY | 2022-04-11 10:47 | XMS_ITS | Encounter Summary ---
:1960 Author Organization [facility] [place] [address] Care Team Providers Name Role Phone Jazmine Baer MD Primary Care Provider Encounter Details Date Type Department Care Team Description 03/03/2021 Office Visit Hematology and Jayden Nance Anemia in stage 3a chronic kidney disease (Primary Dx); Oncology at [facility] MD Carly Bicytopenia; [facility] ENTER Iron deficiency anemia, unspecified iron deficiency anemia type Drive HEMATOLOGY/ONCOLOGY [place], [place] DEPT. [address] [place] [address] [phone] (Wo rk) Social History Tobacco Use Types Packs/Day Years Used Date Never Smoker Smokeless Tobacco: Never Used Alcohol Use Standard Drinks/Week Comments No 0 (1 standard drink = 0.6 oz pure alcoho l) Sex Assigned at Date Recorded Not on file documented as of this encounter Last Filed Vital Signs Vital Sign Reading Time Taken Comments Blood Pressure 147/81 03/03/2021 10:58 AM EDT Pulse 75 03/03/2021 10:58 AM EDT Temperature 36.2 ??C (97.2 ??F) 03/03/2021 10:58 AM EDT Respiratory Rate 13 03/03/2021 10:58 AM EDT Oxygen Saturation 98% 03/03/2021 10:58 AM EDT Inhaled Oxygen Concentration - - Weight 131.1 kg (289 lb) 03/03/2021 10:58 AM EDT Height 175.3 cm (5' 9) 03/03/2021 10:58 AM EDT Body Mass Index 42.68 03/03/2021 10:58 AM EDT documented in this encounter Progress Notes Jayden Nance MD - 03/03/2021 11:00 AM EDT [facility] [place] [address] HEMATOLOGY FOLLOW-UP VISIT NOTE Chief Complaint: Bucky Acevedo is a 60 y.o. male referred by Dr. Baer for evaluation of bicytopenia (anemia and thrombocytopenia) . Data Review (From Jazmine Baer MD and eD) Oringinal History of Present Illness (03/16/16) Bucky Acevedo is a 60 y.o. 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 He was referred for evaluation ofiron deficiency anemia and thrombocytopenia. He had been evaluated by Dr Evangelista at [facility] in 2012 for anemia and thrombocytopenia. At [...] Since last seen, Bucky reports feeling well. Gets tired in the middle of the day. Spends time on the computer, does outside housework. In the middle of the afternoon takes a rest. Feels that he has more energy since starting on Procrit and Venofer. Still getting Procrit every 2 weeks and Venofer as needed based on lab tests - needs it approximately every 2 months. He continues to receive at [facility] qmonth Venofer 300mg for iron saturation < 20 and Aranesp 60mcg SQ injection q2 weeks for Hgb < 12gm/dL. Had a biopsy of a scalp lesion - awaiting results. Last HbA1c was normal at 5.3 and Lantus dose was cut back. New meds - Losartan, lisinopril stopped. Review of Systems: Constitutional --Energy level: reasonably [...] No SOB at rest though admits to corinne CALDERON when working in his yard. Gastrointestinal --Appetite: good - --Early satiety: No --Nausea/vomiting/diarrhea/constipation: occasional nausea a [...] with statins ??? Obesity ??? Shingles 2009 Medications: Current Outpatient Medications Medication Instructions ??? allopurinoL (ZYLOPRIM) 400 mg, Oral, DAILY ??? BD Ultra-Fine Short Pen Needle 31 gauge x 5/16 Needle 1 each, Subcutaneous, 5 TIMES DAILY ??? colchicine (COLCRYS) 0.6 mg, Oral, DAILY, Per direction for acuet gout attack ??? darbepoetin matt in polysorbat (ARANESP, IN POLYSORBATE, INJ) Injection, EVERY 14 DAYS ??? furosemide (LASIX) 20 mg, Oral, DAILY ??? HUMALOG KWIKPEN 100 unit/mL Insulin Pen 35-40 Units. ??? IMMUNE GLOBULIN,GAMMA,IGG, (IMMUNE GLOBULIN, HUMAN,, IGG, IV) 1,200 mg intravenously twice monthly. ??? insulin glargine (LANTUS SOLOSTAR U-100 INSULIN) 30-55 Units, Subcutaneous, 2 TIMES DAILY ??? lisinopril-hydrochlorothiazide (PRINZIDE;ZESTORETIC) 20-12.5 mg per tablet 2 tablets, DAILY ??? metoprolol succinate XL (TOPROL-XL) 50 mg, Oral, DAILY ??? multivitamin Capsule 1 capsule, Oral, DAILY ??? ondansetron (ZOFRAN) 4 mg, Oral, EVERY 8 HOURS PRN ??? ONETOUCH ULTRA TEST Strip 1 each, Other, 3 TIMES DAILY ??? sodium chloride 0.9% SolP 100 mL with methylPREDNISolone sodium succinate (PF) 1,000 mg/8 mL SolR 500 mg 125 mg, Intravenous, ONCE, ONCE A MONTH with 1st IVIG infusion. 'SOLUMEDROL' ??? terazosin (HYTRIN) 5 mg Capsule 1 capsule, Oral, NIGHTLY Allergies Allergies Allergen Reactions ??? Methotrexate Hives, Itching and Rash ??? Morphine Itching ??? Buvquon-Vet-Vyx Reductase Inhibitors Myopathy INTERIM SOCIAL HISTORY: Changes in job, home situation, tobacco or alcohol use since last visit: None CHANGES IN RELEVANT FAMILY HISTORY: None PHYSICAL EXAM VITAL SIGNS: Blood pressure 147/81, pulse 75, temperature 36.2 ??C (97.2 ??F), temperature source Temporal, resp. rate 13, height 175.3 cm (5' 9), weight 131.1 kg (289 lb), SpO2 98 %. GENERAL: Bucky Acevedo is a a mildly chronically ill-appearing 60 y.o. year old male in no acute distress. He is using a cane to help his walking. ENT: Sinuses non-tender. Oropharynx clear. No masses. No thrush. ENDOCRINE: No thyromegaly palpated. CARDIOVASCULAR: Heart with regular rate and rhythm without S3,S4 or murmurs. No cyanosis or peripheral edema. PULMONARY: Lungs are clear to auscultation without rales, rhonchi or wheezing. GASTROINTESTINAL: Abdomen soft and non-tender without palpable masses or hepatosplenomegaly. MUSCULOSKELETAL: Neck supple with full ROM. No spine or CVA tenderness. SKIN: No rashes, bruises or petechiae. Has a biopsy site on his forehead that is healing normally. LYMPH: No abnormal lymphadenopathy. NEUROLOGICAL: Alert and oriented to person, place and time. Laboratory: Recent Results (from the past 72 hour(s)) Iron and TIBC Result Value Ref Range Iron 66 45 - 160 mcg/dL TIBC 262 250 - 450 mcg/dL Iron Saturation 25 20 - 50 % Comprehensive metabolic panel (non-fasting) Result Value Ref Range Glucose Lvl 49 (CRIT) 65 - 199 mg/dL BUN 46 (H) 10 - 20 mg/dL Creatinine 1.67 (H) 0.80 - 1.50 mg/dL Sodium 139 135 - 145 mmol/L Potassium 4.1 3.5 - 5.0 mmol/L Chloride 107 98 - 107 mmol/L CO2 25 22 - 31 mmol/L Anion Gap 7 5 - 15 mmol/L Calcium 8.9 8.5 - 10.5 mg/dL Total Protein 8.5 (H) 6.1 - 8.0 g/dL Albumin 3.3 3.2 - 5.2 g/dL AST 33 0 - 39 unit/L ALT 21 0 - 55 unit/L Alk Phos 135 (H) 40 - 130 unit/L Total Bilirubin 0.6 0.2 - 1.3 mg/dL Estimated GFR 43 (L) >=60 mL/min/1.73 m?? Hemogram Result Value Ref Range WBC 3.7 (L) 4.0 - 9.5 x10(3)/mcL RBC 3.80 (L) 4.58 - 5.54 x10(6)/mcL Hemoglobin 12.4 (L) 13.7 - 16.5 g/dL Hematocrit 39.2 (L) 40.5 - 48.5 % MCV 103.2 (H) 82.9 - 93.1 fL MCH 32.6 (H) 27.5 - 32.1 pg MCHC 31.6 (L) 32.0 - 35.7 g/dL Platelets 69 (L) 145 - 357 x10(3)/mcL RDWSD 60.2 (H) 36.0 - 45.0 fL RDWCV 15.8 (H) 11.4 - 13.8 % MPV 11.0 7.6 - 12.9 fL nRBC % Auto 0.0 % nRBC Abs Auto 0.000 0.000 - 0.000 x10(3)/mcL Differential, Automated Result Value Ref Range Neutrophils % 68.6 % Neutr Abs (ANC) 2.52 1.70 - 6.10 x10(3)/mcL Lymphocytes % 13.1 % Lymphocytes Abs 0.5 (L) 0.9 - 3.2 x10(3)/mcL Monocytes % 10.9 % Monocyte Abs 0.4 0.3 - 0.9 x10(3)/mcL Eosinophils % 6.0 % Eosinophils Abs 0.2 0.0 - 0.4 x10(3)/mcL Basophils % 1.1 % Basophils Abs 0.0 0.0 - 0.1 x10(3)/mcL Immature Gran % 0.30 % Tamara Gran Abs 0.01 0.00 - 0.04 x10(3)/mcL Radiology: No new images reviewed today Assessment & Plans: 1. Anemia - --full anemia w/u in January 2017 found only to be iron deficiency - this despite him being on oral iron. --s/p 4 doses of Venofer 300 mg at [facility] followed by once a month Venofer maintenance infusion for iron saturation is < 20. Ferritin is not valuable to follow given ongoing concomittent diagnosis of autoimmune myopathy causing non- specific inflammation --Epo level was inappropriately low for Hgb in the setting of CKD. --Bucky's Hgb has gradually improved and as of today is at the targetr range of >12.0. continue Aranesp 60mcg SQ injection qoweekly for Hgb < 12gm/dL 2. 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 No clinically significant bleeding. Platelet count remains stable without clinical consequences in the 60-80,000 range. 3. Follow-up - As his current regimen is working well for him, our recommendation is to continue monthly Venofer 300mg for iron saturation < 20 and Aranesp 60 mcg SQ injection q2 weeks for Hgb < 12gm/dL at [facility] for convenience - it is fine to space these out if you find he is neeed the treatments less frequently to hit his targets. - RTC in approximately 12 months with labs and a visit. - General medical care and age appropriate health screening remain under the direction of Dr. Baer. - Bucky was reminded that we remain available in the interim should questions/concerns arise. JAYDEN NANCE MD Section of Hematology [facility] Copies Jazmine Baer MD documented in this encounter Plan of Treatment Upcoming Encounters Date Type Specialty Care Team Description 06/19/2022 Office Visit Rheumatology Richi Blackmon MD [facility] DR RHEUMATOLOGY [place] [address] (Wo rk) Scheduled Orders Name Type Priority Associated Diagnoses Order S chedule CBC (with Diff) Lab STAT Bicytopenia Expected: 03/02/2022 Iron deficiency anemia, ([place] roximate), Expires: unspecified iron deficiency 03/03/2022 anemia type Anemia in stage 3a chronic kidney disease Scheduled Procedures Name Priority Associated Diagnoses Date/Time EGD, UPPER GI ENDOSCOPY Family hx of colon cance r COLONOSCOPY, DIAGNOSTIC Family hx of colon cance r documented as of this encounter Results (ABNORMAL) Ferritin (03/07/2022 7:55 AM EDT) athologist Signature Ferritin 1,996 (H) 30 - 400 [facility] ng/mL [facility] Comment: rerun Pediatric reference ranges not verified at [facility], interpret with caution. Reference ranges for females greater kayleigh n 50 years of age approach values for men, i.e., 30-400 ng/mL. Specimen Anatomical Collection Method Collection Time Receive d Time (Source) Location / / Volume Laterality Blood 03/07/2022 7:55 AM 2 8:03 EDT AM EDT Resulting Agency Comment Spec In Lab Jayden Nance MD CHEMISTRY ORDERABLES Performing Organization Address City/[facility]/ZIP [facility] [place] Number [address] Iron and TIBC (03/07/2022 7:55 AM EDT) athologist Signature Iron 100 45 - 160 [facility] mcg/dL [facility] TIBC 278 250 - 450 [facility] m[facility]/dL [facility] Iron Saturation 36 20 - 50 % [facility] Specimen Anatomical Collection Method Collection Time Receive d Time (Source) Location / / Volume Laterality Blood 03/07/2022 7:55 AM 2 8:03 EDT AM EDT Resulting Agency Comment Spec In Lab Jayden Nance MD CHEMISTRY ORDERABLES Performing Organization Address City/[facility]/ZIP Code [place] [address] documented in this encounter Visit Diagnoses Diagnosis Anemia in stage 3a chronic kidney diseas e - Primary Bicytopenia Other specified diseases of blood and bl ood-forming organs Iron deficiency anemia, unspecified iron deficiency anemia type documented in this encounter Care Teams Reel Man Relationship Specialty Start Date End Date Jazmine Baer MD PCP - General 11/07/10 [address] [place] [address] documented as of this encounter
--- OUTSIDE RECORDS SUMMARY | 2022-04-11 10:47 | XMS_ITS | Encounter Summary ---
:1960 [place] [address] Care Team Providers Name Role Phone Jazmine Baer MD Primary Care Provider Encounter Details Date Type Department Care Team Description 12/14/2020 External Results [place] [address] Social History Tobacco Use Types Packs/Day [...] Visit Rheumatology Richi Blackmon MD [facility] RHEUMATOLOGY [place], [place] [address] (Wo rk) Scheduled Procedures Name Priority Associated Diagnoses Date/Time EGD, UPPER GI ENDOSCOPY Family hx of colon cance r COLONOSCOPY, DIAGNOSTIC Family hx of colon cance r documented as of this encounter Procedures Procedure Name Priority Date/Time Associated Diagnosis Comme nts CBC (WITH DIFF) Routine 12/13/2020 6:53 AM Result s for this EDT procedure are i n the results section. CBC (WITH DIFF) Routine 12/01/2020 7:00 AM Result s for this EDT procedure are i n the results section. CBC (WITH DIFF) Routine 11/15/2020 6:55 AM Result s for this EDT procedure are i n the results section. documented in this encounter Results (ABNORMAL) CBC (with Diff) (12/13/2020 6:53 AM EDT) [facility] Method Time Signature WBC 4.54 EXTERNAL LAB Hemoglobin 11.4 EXTERNAL LAB (EXTERNAL/ ABN) Hematocrit 36.0 EXTERNAL LAB (EXTERNAL/ ABN) Platelets 67 EXTERNAL LAB (EXTERNAL/ ABN) Neutr Abs (ANC) 3.11 EXTERNAL LAB Lymphocyte Abs 0.54 EXTERNAL LAB (EXTERNAL/ ABN) Specimen (Source) Anatomical Collection Method Collection Time Re ceived Time Location / / Volume Laterality Blood 12/13/2020 6:53 AM EDT Historical Provider HEMATOLOGY ORDERABLES Performing Organization Address City/[facility]/ZIP Code Phon e Number EXTERNAL FACILITY EXTERNAL LAB (ABNORMAL) CBC (with Diff) (12/01/2020 7:00 AM EDT) [facility] Method Time Signature WBC 4.26 EXTERNAL LAB (EXTERNAL/ ABN) Hemoglobin 11.9 EXTERNAL LAB (EXTERNAL/ ABN) Hematocrit 37.9 EXTERNAL LAB (EXTERNAL/ ABN) Platelets 61 EXTERNAL LAB (EXTERNAL/ ABN) Neutr Abs (ANC) 2.76 EXTERNAL LAB Lymphocyte Abs 0.56 EXTERNAL LAB (EXTERNAL/ ABN) Specimen (Source) Anatomical Collection Method Collection Time Re ceived Time Location / / Volume Laterality Blood 12/01/2020 7:00 AM EDT Historical Provider HEMATOLOGY ORDERABLES Performing Organization Address [facility] Code Phon e Number EXTERNAL FACILITY EXTERNAL LAB (ABNORMAL) CBC (with Diff) (11/15/2020 6:55 AM EDT) [facility] Method Time Signature WBC 3.54 EXTERNAL LAB (EXTERNAL/ ABN) Hemoglobin 11.4 EXTERNAL LAB (EXTERNAL/ ABN) Hematocrit 35.6 EXTERNAL LAB (EXTERNAL/ ABN) Platelets 59 EXTERNAL LAB (EXTERNAL/ ABN) Neutr Abs (ANC) 2.46 EXTERNAL LAB Lymphocyte Abs 0.60 EXTERNAL LAB (EXTERNAL/ ABN) Specimen (Source) Anatomical Collection Method Collection Time Re ceived Time Location / / Volume Laterality Blood 11/15/2020 6:55 AM EDT Historical Provider HEMATOLOGY ORDERABLES Performing Organization Address City/[facility]/ZIP Code Phon e Number EXTERNAL FACILITY EXTERNAL LAB documented in this encounter Visit Diagnoses Not on filedocumented in this encounter Care Teams Electrician Rectifier Maintenance Relationship Specialty Start Date End Date Jazmine Baer MD PCP - General 11/07/10 [address] [place] [address] documented as of this encounter
--- OUTSIDE RECORDS SUMMARY | 2022-04-11 10:47 | XMS_ITS | Encounter Summary ---
:1960 Author Organization [facility] [address] Care Team Providers Name Role Phone Jazmine Baer MD Primary Care Provider Reason for Visit Reason Onset Date Comments Labs Only 05/15/2021 Encounter Details Date Type Department Care Team Description 05/15/2021 Telephone Rheumatology at [facility] Shanthi Ph[place], [place] [phone] Social History Tobacco Use Types Packs/Day Years Used Date Never Smoker Smokeless Tobacco: Never Used Alcohol Use Standard Drinks/Week Comments No 0 (1 standard drink = 0.6 oz pure alcoho l) Sex Assigned at Date Recorded Not on file documented as of this encounter Miscellaneous Notes Telephone Encounter - Corrine Gomes APRN - 05/15/2021 9:57 AM EST I spoke with Sue at [facility]. Needs new orders for CRP which I will defer to Dr. Blackmon who will be taking over his care. Verbal report of CK now 800. Note that he has not had Solu-Medrol prior to IVIG infusions in quite some time. He is currently at [facility] receiving IVIG (this is day 1 of 2). Verbal order to give him 125 mg of Solu-Medrol IV with this current infusion only. I will defer to regarding future orders. Telephone Encounter - Shanthi Pham RN - 05/15/2021 8:58 AM EST Sue from [facility] Infusion calls for new lab orders for Bucky as other labs have . documented in this encounter Plan of Treatment Upcoming Encounters Date Type Specialty Care Team Description 06/19/2022 Office Visit Rheumatology Richi Blackmon MD [facility] ER DR RHEUMATOLOGY [place], [place] [address] (Wo rk) Scheduled Procedures Name Priority Associated Diagnoses Date/Time EGD, UPPER GI ENDOSCOPY Family hx of colon cance r COLONOSCOPY, DIAGNOSTIC Family hx of colon cance r documented as of this encounter Visit Diagnoses Not on filedocumented in this encounter Care Teams Review Coordinator Relationship Specialty Start Date End Date Jazmine Baer MD PCP - General 11/07/10 [address] [place] [address] documented as of this encounter
--- OUTSIDE RECORDS SUMMARY | 2022-04-11 10:48 | XMS_ITS | Encounter Summary ---
:1960 Author Organization [facility] [place] [address] Care Team Providers Name Role Phone Jazmine Baer MD Primary Care Provider Encounter Details Date Type Department Care Team Description 06/13/2020 Telephone [place]ology [place] [facility] [place] Daniela Lan, [place] [address] Social History Tobacco Use Types Packs/Day Years Used Date Never Smoker Smokeless Tobacco: Never Used Alcohol Use Standard Drinks/Week Comments No 0 (1 standard drink = 0.6 oz pure alcoho l) Sex Assigned at Date Recorded Not on file documented as of this encounter Miscellaneous Notes Telephone Encounter - Daniela Lan, RN - 06/13/2020 3:08 PM EST Received lab results??06-13-20 via fax from [facility]. Request sent to Tatiana Vincent to input results into eDH and forward to Dr Ignacio and Gloria Grant NP. ?? WBC 3.99 PLT 62 H/H 11.4 / 36.9 Cr 1.92 CK 73 C-Reac 0.87 GFR 35.67 [facility] is managing anemia. Per note 02-29-20, continue with current POC:??Aranesp 60 mcg SQ injection q2 weeks for for Hgb < 12??and??Venofer 300mg IV every 4 weeks x 6 for iron saturation <??30. ?? Note sent to Dr Ignacoi regarding drop on PLT. Pt is due for lab re-draw on 06-13-20. ?? RN will continue to track labs [id number], monitor status and coordinate care.?? documented in this encounter Plan of Treatment Upcoming Encounters Date Type Specialty Care Team Description 06/19/2022 Office Visit Rheumatology Richi Blackmon MD [facility] ER DR RHEUMATOLOGY [place], [place] [address] (Wo rk) Scheduled Procedures Name Priority Associated Diagnoses Date/Time EGD, UPPER GI ENDOSCOPY Family hx of colon cance r COLONOSCOPY, DIAGNOSTIC Family hx of colon cance r documented as of this encounter Visit Diagnoses Not on filedocumented in this encounter Care Teams Clinical Nursing Director Relationship Specialty Start Date End Date Jazmine Baer MD PCP - General 11/07/10 [address] [place] [address] documented as of this encounter
--- OUTSIDE RECORDS SUMMARY | 2022-04-11 10:48 | XMS_ITS | Encounter Summary ---
:1960 Author Organization [facility] [place] [address] Care Team Providers Name Role Phone Jazmine Baer MD Primary Care Provider Encounter Details Date Type Department Care Team Description 01/22/[address] [facility] [place] [address] Social History Tobacco Use Types Packs/Day Years Used Date Never Smoker Smokeless Tobacco: Never Used Alcohol Use Standard Drinks/Week Comments No 0 (1 standard drink = 0.6 oz pure alcoho l) Sex Assigned at Date Recorded Not on file documented as of this encounter Miscellaneous Notes Telephone Encounter - Shanthi Pham RN - 01/22/2020 2:04 PM EDT Call received from [facility] asking for new CK orders as last have . Will need to be faxed to [phone] documented in this encounter Plan of Treatment Upcoming Encounters Date Type Specialty Care Team Description 06/19/2022 Office Visit Rheumatology Richi Blackmon MD [facility] DR RHEUMATOLOGY [place], [place] [address] (Wo rk) Scheduled Procedures Name Priority Associated Diagnoses Date/Time EGD, UPPER GI ENDOSCOPY Family hx of colon cance r COLONOSCOPY, DIAGNOSTIC Family hx of colon cance r documented as of this encounter Visit Diagnoses Not on filedocumented in this encounter Care Teams Smutter Relationship Specialty Start Date End Date Jazmine Baer MD PCP - General 11/07/10 [address] [place] [address] documented as of this encounter
--- OUTSIDE RECORDS SUMMARY | 2022-04-11 10:48 | XMS_ITS | Encounter Summary ---
:1960 Author Organization [place] [address] Care Team Providers Name Role Phone Jazmine Baer MD Primary Care Provider Encounter Details Date Type Department Care Team Description 10/19/2019 Telephone Nephrology Hypertens [place] [facility] Kanchan Olsen, [place] [address] Social History Tobacco Use Types Packs/Day Years Used Date Never Smoker Smokeless Tobacco: Never Used Alcohol Use Standard Drinks/Week Comments No 0 (1 standard drink = 0.6 oz pure alcoho l) Sex Assigned at Date Recorded Not on file documented as of this encounter Plan of Treatment Upcoming Encounters Date Type Specialty Care Team Description 06/19/2022 Office Visit Rheumatology Richi Blackmon MD [facility] DR RHEUMATOLOGY [place], [place] [address] (Wo rk) Scheduled Procedures Name Priority Associated Diagnoses Date/Time EGD, UPPER GI ENDOSCOPY Family hx of colon cance r COLONOSCOPY, DIAGNOSTIC Family hx of colon cance r documented as of this encounter Visit Diagnoses Not on filedocumented in this encounter Care Teams Machine Stripper Cutter Relationship Specialty Start Date End Date Jazmine Baer MD PCP - General 11/07/10 [address] [place] [address] documented as of this encounter
--- OUTSIDE RECORDS SUMMARY | 2022-04-11 10:48 | XMS_ITS | Encounter Summary ---
:1960 Author Organization [facility] [place] [address] Care Team Providers Name Role Phone Jazmine Baer MD Primary Care Provider Reason for Visit Reason Comments Follow-up Encounter Details Date Type Department Care Team Description 02/29/2020 Office Visit Hematology and Anastasia Ignacio MD [facility] DR HEMATOLOGY/[place] [address] Iron deficiency anemia due to chronic bl ood loss (Primary Dx); Oncology at [facility] Karen Lugo [facility] DR HEMATOLOGY/[place] [address] Bicytopenia; [facility] Noemy Grant CLAMMER [facility] DR HEMATOLOGY-[place] [address] Stage 3 [place] [address] Social History Tobacco Use Types Packs/Day Years Used Date Never Smoker Smokeless Tobacco: Never Used Alcohol Use Standard Drinks/Week Comments No 0 (1 standard drink = 0.6 oz pure alcoho l) Sex Assigned at Date Recorded Not on file documented as of this encounter Last Filed Vital Signs Vital Sign Reading Time Taken Comments Blood Pressure 161/70 02/29/2020 11:10 AM EDT Pulse 65 02/29/2020 11:10 AM EDT Temperature 36.5 ??C (97.7 ??F) 02/29/2020 11:10 AM EDT Respiratory Rate 18 02/29/2020 11:10 AM EDT Oxygen Saturation 98% 02/29/2020 11:10 AM EDT Inhaled Oxygen Concentration - - Weight 130.6 kg (288 lb) 02/29/2020 11:10 AM EDT Height 170.9 cm (5' 7.28) 02/29/2020 11:10 AM EDT Body Mass Index 44.73 02/29/2020 11:10 AM EDT documented in this encounter Progress Notes Noemy Grant, CLAMMER - 02/29/2020 11:15 AM EDT [facility] [place] [place] [address] HEMATOLOGY/BMT CONSULTATION VISIT NOTE Chief Complaint: Bucky Acevedo is a 59 y.o. male referred by Dr. Baer for evaluation of bicytopenia (anemia and thrombocytopenia) . Data Review (From Jazmine Baer MD and [facility]) Oringinal History of Present Illness (03/16/16) Bucky Acevedo is a 59 y.o. 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 He was referred for evaluation ofiron deficiency anemia and thrombocytopenia. He had been evaluated by Dr Evangelista at [facility] in 2012 for anemia and thrombocytopenia. [...] seen in clinic ~ 6 months ago. Bucky had a recent flair of gout which has now settled down. He has otherwise not had any recent changes in his overall health. He does feel fatigued a lot of the time. He received Venofer 3 weeks ago at [facility] which he is tolerating well. Aranesp was given 2 weeks ago. Has received the Shingrix vaccine and will get the flu vaccine. Remainder of ros neg. Review of Systems: Constitutional --Energy level: reasonably good, manages ADLs, rests as needed --Pain: None --Fevers/chills/sweats: No --Unexpected weight loss or gain: No Eyes, ears, nose, throat --No change in vision- needs to make an ophthalmology appt as it has been a number of years since last examined, using stronger reading glasses --No change hearing, no oral or throat pain or thrush Cardiovascular --Chest pain: No --Palpitations: No Respiratory --Cough: No --SOB, CALDERON: No SOB at rest though admits to CALDERON when walking uphill [unchanged] Gastrointestinal --Appetite: stable --Early satiety: No --Nausea/vomiting/diarrhea/constipation: occasional nausea a few times a month which responds to Zofran, has not needed it in over a month --Melena/Hematochezia: No Genitourinary --Dysuria or hematuria: No Musculoskeletal --Muscle pain or weakness: no focal pain though continues to describe generalized muscle weakness improved with solumedrol and IVIG infusions --Joint pain or swelling: No Immune System --Recent infections: No Hematology/Lymph --Bruising/bleeding/melena: No --Enlarged nodes or other masses: No Skin --Rashes or petechiae: No Neuro --Numbness/tingling: No --Headache/dizziness: occasional, sometimes associated with hypoglycemic episodes [a few times a month] --lightheadedness: No Other ROS: All negative Past Medical History Past Medical History: Diagnosis Date ??? Cirrhosis ??? Diabetes ??? DM II (diabetes mellitus, type II), controlled ??? Gout ??? Hyperlipidemia ??? Hypertension ??? Kidney stone ??? 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 Obesity ??? Shingles 2010 Medications: ??? sodium chloride 0.9% SolP 100 mL with methylPREDNISolone sodium succinate (PF) 1,000 mg/8 mL SolR 500 mg ??? allopurinol (ZYLOPRIM) 100 mg Tablet ??? epoetin matt (PROCRIT INJ) ??? metoprolol succinate (TOPROL-XL) 50 mg Tablet Sustained Release 24 hr ??? colchicine (COLCRYS) 0.6 mg Tablet ??? glipiZIDE (GLUCOTROL XL) 10 mg Tablet Extended Rel 24 hr ??? allopurinol (ZYLOPRIM) 300 mg Tablet ??? HUMALOG KWIKPEN 100 unit/mL Insulin Pen ??? ONETOUCH ULTRA TEST Strip ??? IMMUNE GLOBULIN,GAMMA,IGG, (IMMUNE GLOBULIN, HUMAN,, IGG, IV) ??? UNABLE TO FIND ??? terazosin (HYTRIN) 5 mg Capsule ??? insulin glargine (LANTUS SOLOSTAR) Insulin Pen ??? furosemide (LASIX) 20 mg Tablet ??? multivitamin Capsule ??? ondansetron (ZOFRAN) 4 mg tablet ??? lisinopril-hydrochlorothiazide (PRINZIDE;ZESTORETIC) 20-12.5 mg per tablet Allergies Allergies Allergen Reactions ??? Methotrexate Hives, Itching and Rash ??? Morphine Itching ??? Xxjusnq-Mam-Kba Reductase Inhibitors Myopathy INTERIM SOCIAL HISTORY: Changes in job, home situation, tobacco or alcohol use since last visit: None CHANGES IN RELEVANT FAMILY HISTORY: None Physical Exam VITAL SIGNS: BP 161/70 (Patient Position: Sitting) Pulse 65 Temp 36.5 ??C (97.7 ??F) (Temporal) Resp 18 Ht 170.9 cm (5' 7.28) Wt 130.6 kg (288 lb) SpO2 98% BMI 44.73 kg/m? Laboratory: Recent Results (from the past 72 hour(s)) Ferritin Result Value Ref Range Ferritin 605 (H) 30 - 400 ng/mL Iron and TIBC Result Value Ref Range Iron 56 45 - 160 mcg/dL TIBC 274 250 - 450 mcg/dL Iron Saturation 20 20 - 50 % Folate, serum Result Value Ref Range Folate Lvl >20.0 4.8 - 24.2 ng/mL Vitamin B12 Result Value Ref Range Vitamin B-12 966 232 - 1,245 pg/mL Reticulocyte Count Result Value Ref Range Retic Ct % 2.2 0.7 - 2.6 % Retic Ct Abs 0.080 0.030 - 0.120 x10(6)/mcL Immature Retic% 24.4 (H) 0.0 - 15.6 % Reticulated Hgb 33.3 31.3 - 40.2 pg Phosphorus Result Value Ref Range Phosphorus 3.3 2.5 - 4.5 mg/dL CRP, acute inflammation Result Value Ref Range CRP 10.6 (H) <=4.9 mg/L Hemogram Result Value Ref Range WBC 4.5 4.0 - 9.5 x10(3)/mcL RBC 3.68 (L) 4.58 - 5.54 x10(6)/mcL Hemoglobin 11.7 (L) 13.7 - 16.5 gm/dL Hematocrit 36.6 (L) 40.5 - 48.5 % MCV 99.5 (H) 82.9 - 93.1 fL MCH 31.8 27.5 - 32.1 pg MCHC 32.0 32.0 - 35.7 gm/dL Platelets 69 (L) 145 - 357 x10(3)/mcL RDWSD 59.3 (H) 36.0 - 45.0 fL RDWCV 16.3 (H) 11.4 - 13.8 % MPV 11.7 7.6 - 12.9 fL nRBC % Auto 0.0 % nRBC Abs Auto 0.000 0.000 - 0.000 x10(3)/mcL Differential, Automated Result Value Ref Range Neutrophils % 65.7 % Neutr Abs (ANC) 2.98 1.70 - 6.10 x10(3)/mcL Lymphocytes % 15.2 % Lymphocytes Abs 0.7 (L) 0.9 - 3.2 x10(3)/mcL Monocytes % 11.7 % Monocyte Abs 0.5 0.3 - 0.9 x10(3)/mcL Eosinophils % 6.6 % Eosinophils Abs 0.3 0.0 - 0.4 x10(3)/mcL Basophils % 0.4 % Basophils Abs 0.0 0.0 - 0.1 x10(3)/mcL Immature Gran % 0.40 % Tamara Gran Abs 0.02 0.00 - 0.04 x10(3)/mcL Radiology: No new images reviewed today Assessment & Plan: Bucky Acevedo is a 59 y.o. male who presents for return consultation for thrombocytopenia and anemia. 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 He had been evaluated in the past for thrombocyt openia and anemia with BMbx in 2012 with [...] 4 doses of Venofer 300 mg at [facility] followed by once a month Venofer maintenance infusion for iron saturation is < 20 --Epo level inappropriately low for Hgb in the setting of CKD, continue Aranesp 60mcg SQ injection qoweekly for Hgb < 12gm/dL 2. 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 No clinically significant bleeding. Platelet count remains stable without clinical consequences. 3. Thrush --Resolved 4. Follow-up - Continue qmonth Venofer 300mg for iron saturation < 20 and Aranesp 60mcg SQ injection q2 weeks for Hgb < 12gm/dL at [facility] for convenience - We will arrange for Bucky to RTC in approximately 6 months - General medical care and age appropriate health screening remain under the direction of Dr. Baer. - Bucky was reminded that we remain available in the interim should questions/concerns arise. Noemy Grant APRN Section of Hematology/Oncology Copies Jazmine Baer MD documented in this encounter Plan of Treatment Upcoming Encounters Date Type Specialty Care Team Description 06/19/2022 Office Visit Rheumatology Richi Blackmon MD [facility] DR RHEUMATOLOGY DEP [place] [id number] (Wo rk) Scheduled Procedures Name Priority Associated Diagnoses Date/Time EGD, UPPER GI ENDOSCOPY Family hx of colon cance r COLONOSCOPY, DIAGNOSTIC Family hx of colon cance r documented as of this encounter Results Iron and TIBC (08/29/2020 10:01 AM EDT) athologist Signature Iron 63 45 - 160 [facility] mcg/dL [facility] TIBC 278 250 - 450 [facility] mcg/dL [facility] Iron Saturation 23 20 - 50 % [facility] Specimen Anatomical Collection Method Collection Time Receive d Time (Source) Location / / Volume Laterality Blood specimen 08/29/2020 10:01 1 (specimen) AM EDT 10:08 AM EDT Resulting Agency Comment Spec In Lab Noemy Grant APRN CHEMISTRY ORDERABLES Performing Organization Address City/[facility]/[place] [address] (ABNORMAL) Ferritin (08/29/2020 10:01 AM EDT) athologist Signature Ferritin 1,177 (H) 30 - 400 [facility] ng/mL [facility] Comment: Pediatric reference ranges not verified at [facility], interpret with caution. Reference ranges for females greater kayleigh n 50 years of age approach values for men, i.e., 30-400 ng/mL. Specimen Anatomical Collection Method Collection Time Receive d Time (Source) Location / / Volume Laterality Blood specimen 08/29/2020 10:01 1 (specimen) AM EDT 10:08 AM EDT Resulting Agency Comment Spec In Lab Noemy Grant APRN CHEMISTRY ORDERABLES Performing Organization Address City/[facility]/[place] [address] (ABNORMAL) Ferritin (02/29/2020 10:30 AM EDT) athologist Signature Ferritin 605 (H) 30 - 400 [facility] ng/mL [facility] Comment: Pediatric reference ranges not verified at [facility], interpret with caution. Reference ranges for females greater kayleigh n 50 years of age approach values for men, i.e., 30-400 ng/mL. Specimen Anatomical Collection Method Collection Time Receive d Time (Source) Location / / Volume Laterality Blood specimen 02/29/2020 10:30 0 (specimen) AM EDT 10:41 AM EDT Resulting Agency Comment Spec In Lab Jayden Ignacio MD CHEMISTRY ORDERABLES Performing Organization Address City/[facility]/ZIP Code Phon e Number [address] Iron and TIBC (02/29/2020 10:30 AM EDT) athologist Signature Iron 56 45 - 160 [facility] m[facility]/dL [facility] TIBC 274 250 - 450 [facility] mcg/dL [facility] Iron Saturation 20 20 - 50 % [facility] Specimen Anatomical Collection Method Collection Time Receive d Time (Source) Location / / Volume Laterality Blood specimen 02/29/2020 10:30 0 (specimen) AM EDT 10:41 AM EDT Resulting Agency Comment Spec In Lab Jayden Ignacio MD CHEMISTRY ORDERABLES Performing Organization Address City/[facility]/ZIP Code Phon e Number [address] Folate, serum (02/29/2020 10:30 AM EDT) athologist Signature Folate Lvl >20.0 4.8 - 24.2 [place] [facility] ng/mL [facility] Specimen Anatomical Collection Method Collection Time Receive d Time (Source) Location / / Volume Laterality Blood specimen 02/29/2020 10:30 0 (specimen) AM EDT 10:41 AM EDT Resulting Agency Comment Spec In Lab Jayden Ignacio MD CHEMISTRY ORDERABLES Performing Organization Address City/[facility]/ZIP Code Phon e Number [place] [address] Vitamin B12 (02/29/2020 10:30 AM EDT) P athologist Signature Vitamin B-12 966 232 - 1,245 [facility] pg/mL [facility] Specimen Anatomical Collection Method Collection Time Receive d Time (Source) Location / / Volume Laterality Blood specimen 02/29/2020 10:30 0 (specimen) AM EDT 10:41 AM EDT Resulting Agency Comment Spec In Lab Jayden Ignacio MD CHEMISTRY ORDERABLES Performing Organization Address City/[facility]/ZIP Code Phon e Number [address] (ABNORMAL) Reticulocyte Count (02/29/2020 10:30 AM EDT) Patholo gist Method Time Signature Retic Ct % 2.2 0.7 - 2.6 [facility] % [facility] Retic Ct Abs 0.080 0.030 - [facility] 0.120 [facility] x10(6)/[facility] L LABORATORY Immature Retic% 24.4 (H) 0.0 - [facility] 15.6 % [facility] Reticulated Hgb 33.3 31.3 - [facility] 40.2 pg [facility] Specimen Anatomical Collection Method Collection Time Receive d Time (Source) Location / / Volume Laterality Blood specimen 02/29/2020 10:30 0 (specimen) AM EDT 10:41 AM EDT Resulting Agency Comment Spec In Lab Jayden Ignacio MD HEMATOLOGY ORDERABLES Performing Organization Address City/[facility]/[place] [address] documented in this encounter Visit Diagnoses Diagnosis Iron deficiency anemia due to chronic bl ood loss - Primary Iron deficiency anemia secondary to bloo d loss (chronic) Bicytopenia Other specified diseases of blood and bl ood-forming organs Stage 3 chronic kidney disease documented in this encounter Care Teams Change Agent Relationship Specialty Start Date End Date Jazmine Baer MD PCP - General 11/07/10 [address] [place] [address] documented as of this encounter
--- OUTSIDE RECORDS SUMMARY | 2022-04-11 10:48 | XMS_ITS | Encounter Summary ---
:1960 Author Organization [facility] [place] [address] Care Team Providers Name Role Phone Jazmine Baer MD Primary Care Provider Encounter Details Date Type Department Care Team Description 05/23/2020 External Results Hematology and [place]cology [place] [address] Social History Tobacco Use Types Packs/Day Years Used Date Never Smoker Smokeless Tobacco: Never Used Alcohol Use Standard Drinks/Week Comments No 0 (1 standard drink = 0.6 oz pure alcoho l) Sex Assigned at Date Recorded Not on file documented as of this encounter Plan of Treatment Upcoming Encounters Date Type Specialty Care Team Description 06/19/2022 Office Visit Rheumatology Richi Blackmon MD [facility] RHEUMATOLOGY [place], [place] [address] (Wo rk) Scheduled Procedures Name Priority Associated Diagnoses Date/Time EGD, UPPER GI ENDOSCOPY Family hx of colon cance r COLONOSCOPY, DIAGNOSTIC Family hx of colon cance r documented as of this encounter Procedures Procedure Name Priority Date/Time Associated Comments Diagnosis CRP, ACUTE Routine 05/16/2020 7:25 AM Results f or this INFLAMMATION EST procedure are i n the results section. CREATININE Routine 05/16/2020 7:25 AM Results f or this EST procedure are i n the results section. CBC (WITH DIFF) Routine 05/16/2020 7:25 AM Result s for this EST procedure are i n the results section. CK Routine 05/16/2020 7:25 AM Results f or this EST procedure are i n the results section. documented in this encounter Results (ABNORMAL) CBC (with Diff) (05/16/2020 7:25 AM EST) [facility] Method Time Signature WBC 4.71 4.4 - 10.8 EXTERNAL LAB Hemoglobin 11.6 13.5 - EXTERNAL LAB (EXTERNAL/ 17.5 ABN) Hematocrit 36.7 40.0 - EXTERNAL LAB (EXTERNAL/ 50.0 ABN) Platelets 69 130 - 400 EXTERNAL LAB (EXTERNAL/ ABN) Neutr Abs (ANC) 2.98 1.2 - 6.7 EXTERNAL LAB Lymphocyte Abs 0.66 1.2 - 3.4 EXTERNAL LAB (EXTERNAL/ ABN) Specimen (Source) Anatomical Collection Method Collection Time Re ceived Time Location / / Volume Laterality Blood specimen 05/16/2020 7:25 AM (specimen) EST Historical Provider HEMATOLOGY ORDERABLES Performing Organization Address City/State/ZIP Code Phon e Number EXTERNAL FACILITY EXTERNAL LAB (ABNORMAL) CRP, acute inflammation (05/16/2020 7:25 AM EST) athologist Signature CRP 0.81 0.0 - 0.3 EXTERNAL LAB (EXTERNAL/A BN) Specimen (Source) Anatomical Collection Method Collection Time Re ceived Time Location / / Volume Laterality Blood specimen 05/16/2020 7:25 AM (specimen) EST Historical Provider CHEMISTRY ORDERABLES Performing Organization Address City/State/ZIP Code Phon e Number EXTERNAL FACILITY EXTERNAL LAB CK (05/16/2020 7:25 AM EST) athologist Signature CK, Total 61 39 - 308 EXTERNAL LAB Specimen (Source) Anatomical Collection Method Collection Time Re ceived Time Location / / Volume Laterality Blood specimen 05/16/2020 7:25 AM (specimen) EST Historical Provider CHEMISTRY ORDERABLES Performing Organization Address City/State/ZIP Code Phon e Number EXTERNAL FACILITY EXTERNAL LAB (ABNORMAL) Creatinine (05/16/2020 7:25 AM EST) [facility] Time Signature Creatinine 1.68 0.70 - EXTERNAL LAB (EXTERNAL/ 1.30 ABN) Estimated GFR 41.61 EXTERNAL LAB (EXTERNAL/ ABN) Specimen (Source) Anatomical Collection Method Collection Time Re ceived Time Location / / Volume Laterality Blood specimen 05/16/2020 7:25 AM (specimen) EST Historical Provider CHEMISTRY ORDERABLES Performing Organization Address City/State/ZIP Code Phon e Number EXTERNAL FACILITY EXTERNAL LAB documented in this encounter Visit Diagnoses Not on filedocumented in this encounter Care Teams Terrapin Fisher Relationship Specialty Start Date End Date Jazmine Baer MD PCP - General 11/07/10 [address] [place] [address] documented as of this encounter
--- OUTSIDE RECORDS SUMMARY | 2022-04-11 10:48 | XMS_ITS | Encounter Summary ---
:1960 Author Organization [facility] [place] [address] Care Team Providers Name Role Phone Jazmine Baer MD Primary Care Provider Reason for Visit Diagnostic Test (Routine) - Canceled Specialty Diagnoses / Procedures Referred By Contact Refer red To Contact Radiology Diagnoses Hepatic cirrhosis, unspecified hepatic cirrhosis type, unspecified whether ascites present Rhiannon Headley MD [facility] Rad Mri Procedures MRI Abdomen wwo Contrast (Generic) [facility] [place] [address] [place] [address] Referral ID Status Reason Start Expiration Visits Visits Date Date Requested Authorized [id number] Canceled Specialty 03/15/2020 09/13/2021 1 1 Service Requested Encounter Details Date Type Department Care Team Description 04/21/2020 Hospital Encounter MRI at [facility] Rhiannon Headley MD Canceled [facility] [address] [place] GASTRO[place]OLOG[place] [address] [place], [place] [phone] [id number] Social History Tobacco Use Types Packs/Day Years [...] daily. Per direction for acuet gout attack glipiZIDE (GLUCOTROL XL) Take 10 mg by mouth 0 08/24/2020 10 mg Tablet Extended Rel daily. 24 hr terazosin (HYTRIN) 5 mg Take 1 capsule by 3 08/0105/02/2021 Capsule mouth nightly. lisinopril-hydrochlorothi Take 2 tablets by 0 05/02/2021 azide mouth daily. (PRINZIDE;ZESTORETIC) 20-12.5 mg per tablet documented as of this encounter Plan of Treatment Upcoming Encounters Date Type Specialty Care Team Description 06/19/2022 Office Visit Rheumatology Inserra, Richi pher J, MD [facility] DR RHEUMATOLOGY [place], [place] [address] (Wo rk) Scheduled Procedures Name Priority Associated Diagnoses Date/Time EGD, UPPER GI ENDOSCOPY Family hx of colon cance r COLONOSCOPY, DIAGNOSTIC Family hx of colon cance r documented as of this encounter Visit Diagnoses Not on filedocumented in this encounter Care Teams Artisan Plasterer Relationship Specialty Start Date End Date Jazmine Baer MD PCP - General 11/07/10 [address] [place] [address] documented as of this encounter
--- OUTSIDE RECORDS SUMMARY | 2022-04-11 10:48 | XMS_ITS | Encounter Summary ---
:1960 Author Organization [facility] [place] [address] Care Team Providers Name Role Phone Jazmine Baer MD Primary Care Provider Encounter Details Date Type Department Care Team Description 03/16/2020 External Results Hematology [place] [address] Social History Tobacco Use Types Packs/Day [...] Richi Blackmon MD [facility] RHEUMATOLOGY [place], [place] [address] (Wo rk) Scheduled Procedures Name Priority Associated Diagnoses Date/Time EGD, UPPER GI ENDOSCOPY Family hx of colon cance r COLONOSCOPY, DIAGNOSTIC Family hx of colon cance r documented as of this encounter Procedures Procedure Name Priority Date/Time Associated Diagnosis Comme nts CREATININE Routine 02/22/2020 7:50 AM Results f or this EDT procedure are i n the results section. CBC (WITH DIFF) Routine 02/22/2020 7:50 AM Result s for this EDT procedure are i n the results section. documented in this encounter Results (ABNORMAL) Creatinine (02/22/2020 7:50 AM EDT) Analysis Performed At Patho logist Time Signature Creatinine 1.85 0.70 - EXTERNAL LAB (EXTERNAL/ 1.30 ABN) Estimated GFR 37.35 EXTERNAL LAB (EXTERNAL/ ABN) Specimen (Source) Anatomical Collection Method Collection Time Re ceived Time Location / / Volume Laterality Blood specimen 02/22/2020 7:50 AM (specimen) EDT Historical Provider CHEMISTRY ORDERABLES Performing Organization Address City/State/ZIP Code Phon e Number EXTERNAL FACILITY EXTERNAL LAB (ABNORMAL) CBC (with Diff) (02/22/2020 7:50 AM EDT) Patholo gist Method Time Signature WBC 4.44 4.4 - 10.8 EXTERNAL LAB Hemoglobin 11.4 13.5 - EXTERNAL LAB (EXTERNAL/ 17.5 ABN) Hematocrit 36.6 40.0 - EXTERNAL LAB (EXTERNAL/ 50.0 ABN) Platelets 69 130 - 400 EXTERNAL LAB (EXTERNAL/ ABN) Neutr Abs (ANC) 2.72 1.2 - 6.7 EXTERNAL LAB Lymphocyte Abs 0.68 1.2 - 3.4 EXTERNAL LAB (EXTERNAL/ ABN) Specimen (Source) Anatomical Collection Method Collection Time Re ceived Time Location / / Volume Laterality Blood specimen 02/22/2020 7:50 AM (specimen) EDT Historical Provider HEMATOLOGY ORDERABLES Performing Organization Address City/State/ZIP Code Phon e Number EXTERNAL FACILITY EXTERNAL LAB documented in this encounter Visit Diagnoses Not on filedocumented in this encounter Care Teams Information Coder Relationship Specialty Start Date End Date Jazmine Baer MD PCP - General 11/07/10 [address] [place] [address] documented as of this encounter
--- OUTSIDE RECORDS SUMMARY | 2022-04-11 10:48 | XMS_ITS | Encounter Summary ---
:1960 Author Organization [facility] [place] [address] Care Team Providers Name Role Phone Jazmine Baer MD Primary Care Provider Encounter Details Date Type Department Care Team Description 09/29/2019 TH Visit Rheumatology at [facility] Akash Prieto, Myositis of other (TeleHealth) [facility] MD site, unspecified Drive [facility] [place] [address] CENTER [phone] RHEUMAT[address] DEPT. 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 In the past he is tried and failed azathioprine mycophenolate rituximab and methotrexate ?? He has been stable on this regimen for over a year and has no restrictions with regard to his residual muscle strength ?? His other problems include diabetes for which she is on insulin with good control of his hemoglobin A1c but unfortunately his weight is unchanged ?? He has gout but his uric acid is well controlled on allopurinol he has not needed to use colchicine ?? He had a normal cardiac evaluation 2 years ago but by my exam he probably has obstructive sleep apnea and I have asked him to get a sleep study Since his last visit his strength is been unchanged he still able to ambulate by himself and do a little bit of yard work although the weather is not been conducive at all he has had multiple CK levelsmeasured that range from 63-135 but the most recent one was 78. His next infusions at [facility] are Saturday and Saturday of next week. His only musculoskeletal complaint is that his left arm is weaker than his right arm. His primary thought it was rotator cuff and indeed when he rotates his shoulder he getspain there is no restriction of motion so I do not think it is a frozen shoulder and he was scheduled for physical therapy but it got canceled and they do not think they can do it by video so it will ju st have to wait His hemoglobin A1c has been well controlled at 6.2 but his weight is up to 280 pounds he is doing social distancing except for medical appointments which is not been a problem I reinforced the fact that he is immunocompromised and needs to be careful Lastly he had one episode of gout 1 month ago requiring colchicine in spite of the fact that he is continuing on allopurinol 400 His last uric acid was 7.7 in March but I will remeasure it We decided to reduce his Solu-Medrol from 1 g a month to 500 mg for a couple of months to see if he flares and if not we will try him off of the Solu-Medrol altogether since it clearly compromises his weight and his diabetes I will follow-up in 3 months documented in this encounter Plan of Treatment Upcoming Encounters Date Type Specialty Care Team Description 06/19/2022 Office Visit Rheumatology Richi Blackmon MD [facility] RHEUMATOLOGY [place], [place] [address] (Wo rk) Scheduled Procedures Name Priority Associated Diagnoses Date/Time EGD, UPPER GI ENDOSCOPY Family hx of colon cance r COLONOSCOPY, DIAGNOSTIC Family hx of colon cance r documented as of this encounter Results (ABNORMAL) CRP, acute inflammation (02/29/2020 10:30 AM EDT) athologist Signature CRP 10.6 (H) <=4.9 mg/L [facility] Specimen Anatomical Collection Method Collection Time Receive d Time (Source) Location / / Volume Laterality Blood specimen 02/29/2020 10:30 0 (specimen) AM EDT 10:41 AM EDT Resulting Agency Comment Spec In Lab Akash Prieto MD CHEMISTRY ORDERABLES Performing Organization Address City/State/[place] [address] documented in this encounter Visit Diagnoses Diagnosis Myositis of other site, unspecified myos itis type documented in this encounter Care Teams Senior System Operator Relationship Specialty Start Date End Date Jazmine Baer MD PCP - General 11/07/10 [address] [place] [address] documented as of this encounter
--- OUTSIDE RECORDS SUMMARY | 2022-04-11 10:48 | XMS_ITS | Encounter Summary ---
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 HUMALOG KWIKPEN 100 20 Units 3 times [...] Take 1 capsule by 0 mouth daily. sodium chloride 0.9% SolP Inject 125 mg into 0 05/02/2021 100 mL with the vein once. ONCE A methylPREDNISolone sodium MONTH with 1st IVIG succinate (PF) 1,000 mg/8 infusion. mL SolR 500 mg 'SOLUMEDROL' allopurinol (ZYLOPRIM) Take 1 tablet by 90 tablet 1 019 04/20/2020 100 mg Tablet mouth daily. metoprolol succinate Take 50 mg by mouth 0 201705/02/2021 (TOPROL-XL) 50 mg Tablet daily. Sustained Release 24 hr colchicine (COLCRYS) 0.6 Take 0.6 mg by mouth 0 05/02/2021 mg Tablet daily. Per direction for acuet gout attack glipiZIDE (GLUCOTROL XL) Take 10 mg by mouth 0 08/24/2020 10 mg Tablet Extended Rel daily. 24 hr allopurinol (ZYLOPRIM) Take 300 mg by mouth 0 04/20/2020 300 mg TabletIndications: daily. CKD (chronic kidney disease) stage 3, GFR 30-59 ml/min, Anemia of chronic renal failure, stage 3 (moderate) UNABLE TO FIND Solumedrol IV with 0 IVIG infusions, once monthly (one bag, one mL). terazosin (HYTRIN) 5 mg Take 1 capsule by 3 08/0105/02/2021 Capsule mouth nightly. lisinopril-hydrochlorothi Take 2 tablets by 0 05/02/2021 azide mouth daily. (PRINZIDE;ZESTORETIC) 20-12.5 mg per tablet documented as of this encounter Plan of Treatment Upcoming Encounters Date Type Specialty Care Team Description 06/19/2022 Office Visit Rheumatology Richi Blackmon MD [facility] ER RHEUMATOLOGY [place], [place] [address] (Wo rk) Scheduled Orders Name Type Priority Associated Diagnoses Order S chedule CBC (with Diff) Lab Routine CKD (chronic kidney 1 Occ urrences starting disease) stage 3, GFR 30-59 02/29/2020 until 02/29/2020 ml/min Scheduled Procedures Name Priority Associated Diagnoses Date/Time EGD, UPPER GI ENDOSCOPY Family hx of colon cance r COLONOSCOPY, DIAGNOSTIC Family hx of colon cance r documented as of this encounter Procedures Procedure Name Priority Date/Time Associated Diagnosis Comme nts HC C-REACTIVE Routine 02/29/2020 10:30 AM Myositis of other Re sults for this PROTEIN EDT site, unspecified procedure are in myositis type the results section. HEMOGRAM STAT 02/29/2020 10:30 AM Bicytopenia Results for this EDT procedure are i n the results section. DIFFERENTIAL, STAT 02/29/2020 10:30 AM Bicytopenia Results for this AUTOMATED EDT procedure are i n the results section. HC IRON BINDING Routine 02/29/2020 10:30 AM Bicytopenia Results for this CAPACITY EDT Iron deficiency procedure ar e in anemia due to the results chronic blood loss section. HC RETIC,AUTO STAT 02/29/2020 10:30 AM Bicytopenia Results for this INCLUDES RETHE & EDT procedure a re in IRF the results section. HC CBC,PLT & AUTO STAT 02/29/2020 10:30 AM Bicytopenia DIFF EDT HC PHOSPHORUS, Routine 02/29/2020 10:30 AM CKD (chronic kidney Results for this SERUM EDT disease) stage 3, procedure are in GFR 30-59 ml/min the results section. HC FOLATE, SERUM STAT 02/29/2020 10:30 AM Bicytopenia Resu lts for this EDT procedure are i n the results section. HC FERRITIN, SERUM Routine 02/29/2020 10:30 AM Bicytopen ia Results for this EDT Iron deficiency procedure ar e in anemia due to the results chronic blood loss section. HC VITAMIN B12 STAT 02/29/2020 10:30 AM Bicytopenia Result s for this SERUM EDT procedure are i n the results section. documented in this encounter Results (ABNORMAL) Differential, Automated (02/29/2020 10:30 AM EDT) [facility] Method Time Signature Neutrophils % 65.7 % [facility] Neutr Abs (ANC) 2.98 1.70 - [facility] 6.10 [facility] x10(3)/[facility] LABORATORY Lymphocytes % 15.2 % [facility] Lymphocytes Abs 0.7 (L) 0.9 - 3.2 [facility] x10(3)/[facility] LABORATORY Monocytes % 11.7 % [facility] Monocyte Abs 0.5 0.3 - 0.9 [facility] x10(3)/[facility] LABORATORY Eosinophils % 6.6 % [facility] Eosinophils Abs 0.3 0.0 - 0.4 [facility] x10(3)/[facility] LABORATORY Basophils % 0.4 % [facility] Basophils Abs 0.0 0.0 - 0.1 [facility] x10(3)/[facility] LABORATORY Immature Gran % 0.40 % [facility] Comment: Immature granulocytes(IG's)percentage an d absolute count will include metamyelocytes, myelocytes, and promyelo cytes. Blood smears from CBCs yielding IG's will be scanned manually for concor dance. If this scan disagrees with the automated IG or if promyelocytes are not ed, a manual differential will be performed. Tamara Gran Abs 0.02 0.00 - 0.04 x10(3)/[facility] MAR Y [facility] Specimen Anatomical Collection Method Collection Time Receive d Time (Source) Location / / Volume Laterality Blood specimen 02/29/2020 10:30 0 (specimen) AM EDT 10:41 AM EDT Resulting Agency Comment Spec In Lab Jayden Ignacio MD HEMATOLOGY ORDERABLES Performing Organization Address City/State/[place] [address] (ABNORMAL) Hemogram (02/29/2020 10:30 AM EDT) Analysis Performed At Patho logist Time Signature WBC 4.5 4.0 - 9.5 [facility] x10(3)/[facility] LABORATORY RBC 3.68 (L) 4.58 - [facility] 5.54 [facility] x10(6)/[facility] LABORATORY Hemoglobin 11.7 (L) 13.7 - [facility] 16.5 gm/dL [facility] Hematocrit 36.6 (L) 40.5 - [facility] 48.5 % [facility] MCV 99.5 (H) 82.9 - [place] [facility] 93.1 [facility] LABORATORY MCH 31.8 27.5 - [place] [facility] 32.1 pg [facility] MCHC 32.0 32.0 - [place] [facility] 35.7 gm/dL [facility] Platelets 69 (L) 145 - 357 [facility] x10(3)/[facility] LABORATORY RDWSD 59.3 (H) 36.0 - [place] 45.0 fL [facility] RDWCV 16.3 (H) 11.4 - [place] 13.8 % [facility] MPV 11.7 7.6 - 12.9 [facility] nRBC % Auto 0.0 % [facility] nRBC Abs Auto 0.000 0.000 - [place] 0.000 [facility] x10(3)/[facility] LABORATORY Specimen Anatomical Collection Method Collection Time Receive d Time (Source) Location / / Volume Laterality Blood specimen 02/29/2020 10:30 0 (specimen) AM EDT 10:41 AM EDT Resulting Agency Comment Spec In Lab Jayden Ignacio MD HEMATOLOGY ORDERABLES Performing Organization Address City/State/ZIP Code Phon e Number [address] (ABNORMAL) CRP, acute inflammation (02/29/2020 10:30 AM EDT) P athologist Signature CRP 10.6 (H) <=4.9 mg/L [facility] Specimen Anatomical Collection Method Collection Time Receive d Time (Source) Location / / Volume Laterality Blood specimen 02/29/2020 10:30 0 (specimen) AM EDT 10:41 AM EDT Resulting Agency Comment Spec In Lab Akash Prieto MD CHEMISTRY ORDERABLES Performing Organization Address City/State/[place] [address] Phosphorus (02/29/2020 10:30 AM EDT) P athologist Signature Phosphorus 3.3 2.5 - 4.5 [facility] mg/dL [facility] Specimen Anatomical Collection Method Collection Time Receive d Time (Source) Location / / Volume Laterality Blood specimen 02/29/2020 10:30 0 (specimen) AM EDT 10:41 AM EDT Resulting Agency Comment Spec In Lab Lea Villavicencio MD CHEMISTRY ORDERABLES Performing Organization Address City/[facility]/[place] [address] (ABNORMAL) Reticulocyte Count (02/29/2020 10:30 AM EDT) [facility] gist Method Time Signature Retic Ct % 2.2 0.7 - 2.6 [facility] % [facility] LABORATORY Retic Ct Abs 0.080 0.030 - [facility] 0.120 [facility] x10(6)/[facility] L LABORATORY Immature Retic% 24.4 (H) 0.0 - [facility] 15.6 % [facility]ORY Reticulated Hgb 33.3 31.3 - [facility] 40.2 pg [facility] Specimen Anatomical Collection Method Collection Time Receive d Time (Source) Location / / Volume Laterality Blood specimen 02/29/2020 10:30 0 (specimen) AM EDT 10:41 AM EDT Resulting Agency Comment Spec In Lab Jayden Ignacio MD HEMATOLOGY ORDERABLES Performing Organization Address City/[facility]/ZIP Code Phon e Number [address] Vitamin B12 (02/29/2020 10:30 AM EDT) athologist Signature Vitamin B-12 966 232 - 1,245 [facility] pg/mL [facility] Specimen Anatomical Collection Method Collection Time Receive d Time (Source) Location / / Volume Laterality Blood specimen 02/29/2020 10:30 0 (specimen) AM EDT 10:41 AM EDT Resulting Agency Comment Spec In Lab Jayden Ignacio MD CHEMISTRY ORDERABLES Performing Organization Address City/[facility]/ZIP [facility] Phon e Number [address] Folate, serum (02/29/2020 10:30 AM EDT) athologist Signature Folate Lvl >20.0 4.8 - 24.2 [place] ng/mL [facility] Specimen Anatomical Collection Method Collection Time Receive d Time (Source) Location / / Volume Laterality Blood specimen 02/29/2020 10:30 0 (specimen) AM EDT 10:41 AM EDT Resulting Agency Comment Spec In Lab Jayden Ignacio MD CHEMISTRY ORDERABLES Performing Organization Address City/[facility]/[place] [address] Iron and TIBC (02/29/2020 10:30 AM EDT) athologist Signature Iron 56 45 - 160 [facility] mcg/dL [facility] TIBC 274 250 - 450 [facility] mcg/dL [facility] Iron Saturation 20 20 - 50 % [facility] Specimen Anatomical Collection Method Collection Time Receive d Time (Source) Location / / Volume Laterality Blood specimen 02/29/2020 10:30 0 (specimen) AM EDT 10:41 AM EDT Resulting Agency Comment Spec In Lab Jayden Ignacio MD CHEMISTRY ORDERABLES Performing Organization Address City/[facility]/ZIP Code Phon e Number [address] (ABNORMAL) Ferritin (02/29/2020 10:30 AM EDT) athologist Signature Ferritin 605 (H) 30 - 400 [place] ng/mL [facility] Comment: Pediatric reference ranges not verified at [facility], interpret with caution. Reference ranges for females greater kayleigh n 50 years of age approach values for men, i.e., 30-400 ng/mL. 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
--- OUTSIDE RECORDS SUMMARY | 2022-04-11 10:48 | XMS_ITS | Encounter Summary ---
:1960 Author Organization [facility] [place] [address] Care Team Providers Name Role Phone Jazmine Baer MD Primary Care Provider Reason for Visit Reason Onset Date Comments Labs Only 05/04/2020 Encounter Details Date Type Department Care Team Description 05/04/2020 Telephone Hematology and [place]col [place]gy at [facility] Princess Major, [place] [address] Social History Tobacco Use Types Packs/Day Years Used Date Never Smoker Smokeless Tobacco: Never Used Alcohol Use Standard Drinks/Week Comments No 0 (1 standard drink = 0.6 oz pure alcoho l) Sex Assigned at Date Recorded Not on file documented as of this encounter Miscellaneous Notes Telephone Encounter - Princess Major RN - 05/04/2020 10:34 AM EST Received lab results 05-02-20 via fax from [facility]. Request sent to Tatiana Vincent to input results into eD and forward to Dr Ignacio and Gloria Grant NP. ?? Labs stable: H/H=11.1/35.5, PLT=68, Cr=1.92. Iron=60, WXXI=988, iron sat=20. [facility] is managing anemia. Per note 02-29-20, continue with current POC: Aranesp 60 mcg SQ injection q2 weeks for for Hgb < 12 and Venofer 300mg IV every 4 weeks x 6 for iron saturation <??30. ?? RN will continue to track labs [id number], monitor status and coordinate care. documented in this encounter Plan of Treatment Upcoming Encounters Date Type Specialty Care Team Description 06/19/2022 Office Visit Rheumatology Richi Blackmon MD [facility] ER DR RHEUMATOLOGY [place], [place] [address] (Wo rk) Scheduled Procedures Name Priority Associated Diagnoses Date/Time EGD, UPPER GI ENDOSCOPY Family hx of colon cance r COLONOSCOPY, DIAGNOSTIC Family hx of colon cance r documented as of this encounter Visit Diagnoses Not on filedocumented in this encounter Care Teams Cost Recorder Relationship Specialty Start Date End Date Jazmine Baer MD PCP - General 11/07/10 [address] [place] [address] documented as of this encounter
--- OUTSIDE RECORDS SUMMARY | 2022-04-11 10:48 | XMS_ITS | Encounter Summary ---
:1960 Author Organization [facility] [place] [address] Care Team Providers Name Role Phone Jazmine Baer MD Primary Care Provider Reason for Visit Reason Comments Follow-up Encounter Details Date Type Department Care Team Description 08/17/2019 Office Visit Hematology and Anastasia Ignacio MD [facility] DR HEMATOLOGY/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 [address] B[address] [facility] Noemy Grant [facility] [address] HEMATOLOGY-[place] [address] [place] [address] Social History Tobacco Use Types Packs/Day Years Used Date Never Smoker Smokeless Tobacco: Never Used Alcohol Use Standard Drinks/Week Comments No 0 (1 standard drink = 0.6 oz pure alcoho l) Sex Assigned at Date Recorded Not on file documented as of this encounter Last Filed Vital Signs Vital Sign Reading Time Taken Comments Blood Pressure 159/68 08/17/2019 11:04 AM EDT Pulse 69 08/17/2019 11:04 AM EDT Temperature 36.3 ??C (97.3 ??F) 08/17/2019 11:04 AM EDT Respiratory Rate 20 08/17/2019 11:04 AM EDT Oxygen Saturation 99% 08/17/2019 11:04 AM EDT Inhaled Oxygen Concentration - - Weight 132.3 kg (291 lb 9.6 oz) 08/17/2019 11:04 AM EDT Height 173.8 cm (5' 8.43) 08/17/2019 11:04 AM EDT Body Mass Index 43.79 08/17/2019 11:04 AM EDT documented in this encounter Progress Notes Karen Lugo, ONCOLOGY PHYSICIAN - 08/17/2019 11:15 [place] [address] HEMATOLOGY/BMT CONSULTATION VISIT NOTE Chief Complaint: Bucky Beth is a 59 y.o. male referred by Dr. Baer for evaluation of bicytopenia (anemia and thrombocytopenia) . Data Review (From Jazmine Baer MD and [facility]) Oringinal History of Present Illness (03/16/16) Bucky Beth is a 59 y.o. 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 He was referred for evaluation ofiron deficiency anemia and thrombocytopenia. He had been evaluated by Dr Evangelista at [facility] in 2012 for anemia and [...] 6 months ago. Since last seen, Bucky denies changes to his baseline health. No fevers, chills, recurrent infections. No drenching sweats, unintentional weight loss, ab normal bleeding or excessive bruising. He describes and occasional nose bleed which he attributes towinter dryness. We discussed add humidification to the air and applying vasoline or bacitracin to nasal membranes nightly. He continues to receive solumedrol and IVIG per Rheumatology once a month for myopathy which he tolerates well. He feels like the myopathy is livable. He is not needing a walker or wheelchair. He uses a cane it walking long distances. He does not feel as strong as he was a year ago though remains independent in ADLs. In addition, Bucky is scheduled to receive monthly Venofer 300mg for iron saturation < 20 [last administered 3 months ago] and twice a month Aranesp 60mcg injections for Hgb < 12gm/dL at the infusion clinic at [facility]. He describes that his hemoglobin A1c was recently elevated ~ 6.8. It will be repeated shortly and if it remains elevated, he will need to makechanges to his medication regimen. No new health- related concerns. Review of Systems: Constitutional --Energy level: [...] CALDERON when walking uphill [unchanged] Gastrointestinal --Appetite: varies, not always hungry at lunch and skips a meal --Early satiety: No --Nausea/vomiting/diarrhea/constipation: occasional nausea a few times a month which responds to Zofran, has not needed it in over a month --Melena/Hematochezia: No Genitourinary --Dysuria or hematuria: No Musculoskeletal --Muscle pain or weakness: no focal pain though continues to describe generalized muscle weakness improved with solumedrol and IVIG infusions --Joint pain or swelling: No Immune System --Recent infections: No Hematology/Lymph --Bruising/bleeding/melena: occasional nose bleeds which stop spontaneously --Enlarged nodes or other masses: No Skin --Rashes or petechiae: No Neuro --Numbness/tingling: intermittent PN [tingling] affecting bilateral LE, not noticed in the past 2-3 weeks --Headache/dizziness: occasional, sometimes associated with hypoglycemic episodes [...] ??? Obesity ??? Shingles 2010 Medications: ??? allopurinol (ZYLOPRIM) 100 mg Tablet ??? [...] Itching and Rash ??? Morphine Itching ??? Buutzve-Ufg-Egx Reductase Inhibitors Myopathy INTERIM SOCIAL HISTORY: Changes in job, home situation, tobacco or alcohol use since last visit: None CHANGES IN RELEVANT FAMILY HISTORY: None Physical Exam VITAL SIGNS: BP 159/68 (Patient Position: Sitting) Pulse 69 Temp 36.3 ??C (97.3 ??F) (Temporal) Resp 20 Ht 173.8 cm (5' 8.43) Wt 132.3 kg (291 lb 9.6 oz) SpO2 99% BMI 43.79 kg/m?? GENERAL: Bucky Beth is a well-appearing 59 y.o. male in no acute distress. ENT: Oropharynx clear. No masses. No conjunctival pallor. Thrush on soft palate ENDOCRINE: No thyromegaly palpated. CARDIOVASCULAR: Heart with regular rate and rhythm without S3,S4. Has 2/6 SMITA murmur. No cyanosis. 1+ bilateral ankle edema PULMONARY: Lungs are clear to auscultation without rales, rhonchi or wheezing. GASTROINTESTINAL: Abdomen soft and non-tender without palpable masses or hepatosplenomegaly though abdominal exam is difficult given body habitus MUSCULOSKELETAL: Neck supple with full ROM. No spine or CVA tenderness. SKIN: No rashes, bruises or petechiae. LYMPH: No abnormal cervical, supraclavicular, axillary, or groin lymphadenopathy. NEUROLOGICAL: Alert and oriented to person, place and time. ?? Laboratory: Results for BUCKY BETH ( ) as of 08/17/2019 11:25 Ref. Range 08/17/2019 10:11 WBC Latest Ref Range: 4.0 - 9.5 x10(3)/mcL 4.2 RBC Latest Ref Range: 4.58 - 5.54 x10(6)/mcL 3.90 (L) Hemoglobin Latest Ref Range: 13.7 - 16.5 gm/dL 12.2 (L) Hematocrit Latest Ref Range: 40.5 - 48.5 % 38.9 (L) MCV Latest Ref Range: 82.9 - 93.1 fL 99.7 (H) MCH Latest Ref Range: 27.5 - 32.1 pg 31.3 MCHC Latest Ref Range: 32.0 - 35.7 gm/dL 31.4 (L) RDWSD Latest Ref Range: 36.0 - 45.0 fL 57.9 (H) RDWCV Latest Ref Range: 11.4 - 13.8 % 15.9 (H) Platelets Latest Ref Range: 145 - 357 x10(3)/mcL 77 (L) MPV Latest Ref Range: 7.6 - 12.9 fL 11.6 nRBC % Auto Latest Units: % 0.0 nRBC Abs Auto Latest Ref Range: 0.000 - 0.000 x10(3)/mcL 0.000 Neutr Abs (ANC) Latest Ref Range: 1.70 - 6.10 x10(3)/mcL 2.85 Neutrophils % Latest Units: % 67.8 Immature Gran % Latest Units: % 0.20 Lymphocytes % Latest Units: % 14.3 Monocytes % Latest Units: % 10.5 Eosinophils % Latest Units: % 6.7 Basophils % Latest Units: % 0.5 Tamara Gran Abs Latest Ref Range: 0.00 - 0.04 x10(3)/mcL 0.01 Lymphocytes Abs Latest Ref Range: 0.9 - 3.2 x10(3)/mcL 0.6 (L) Monocyte Abs Latest Ref Range: 0.3 - 0.9 x10(3)/mcL 0.4 Eosinophils Abs Latest Ref Range: 0.0 - 0.4 x10(3)/mcL 0.3 Basophils Abs Latest Ref Range: 0.0 - 0.1 x10(3)/mcL 0.0 Sodium Latest Ref Range: 135 - 145 mmol/L 139 Potassium Latest Ref Range: 3.5 - 5.0 mmol/L 4.5 Chloride Latest Ref Range: 98 - 107 mmol/L 104 CO2 Latest Ref Range: 22 - 31 mmol/L 25 Anion Gap Latest Ref Range: 5 - 15 mmol/L 10 BUN Latest Ref Range: 10 - 20 mg/dL 43 (H) Creatinine Latest Ref Range: 0.80 - 1.50 mg/dL 1.41 eGFR Latest Ref Range: >=60 mL/min/1.73 m?? 53 (L) eGFR Latest Ref Range: >=60 mL/min/1.73 m?? 62 Calcium Latest Ref Range: 8.5 - 10.5 mg/dL 9.3 Glucose Lvl Latest Ref Range: 65 - 199 mg/dL 104 Total Protein Latest Ref Range: 6.1 - 8.0 gm/dL 8.6 (H) Albumin Latest Ref Range: 3.2 - 5.2 gm/dL 3.5 Total Bilirubin Latest Ref Range: 0.2 - 1.3 mg/dL 0.6 Alk Phos Latest Ref Range: 40 - 130 unit/L 107 AST Latest Ref Range: 0 - 39 unit/L 31 ALT Latest Ref Range: 0 - 55 unit/L 28 Iron Latest Ref Range: 45 - 160 mcg/dL 59 TIBC Latest Ref Range: 250 - 450 mcg/dL 282 Iron Saturation Latest Ref Range: 20 - 50 % 21 Ferritin Latest Ref Range: 30 - 400 ng/mL 565 (H) Radiology: No new images reviewed today Assessment & Plan: Bucky Beth is a 59 y.o. male who presents [...] 4 doses of Venofer 300 mg at [facility] followed by once a month Venofer maintenance infusion for iron saturation is < 20 --Epo level inappropriately low for Hgb in the setting of CKD, continue Aranesp 60mcg SQ injection qoweekly for Hgb < 12gm/dL 2. 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 No clinically significant bleeding. Platelet count remains stable without clinical consequences. 3. Thrush --recommended frequent salt water mouth rinses --leave dentures out --nystatin swish and spit QID [patient has prescription at home] 4. Follow-up - Continue qmonth Venofer 300mg for iron saturation < 20 and Aranesp 60mcg SQ injection q2 weeks for Hgb < 12gm/dL at [facility] for convenience - We will arrange for Bucky to RTC in approximately 6 months - General medical care and age appropriate health screening remain under the direction of Dr. Baer. - Bucky was reminded that we remain available in the interim should questions/concerns arise. 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
--- OUTSIDE RECORDS SUMMARY | 2022-04-11 10:48 | XMS_ITS | Encounter Summary ---
:1960 Author Organization [facility] [place] [address] Care Team Providers Name Role Phone Jazmine Baer MD Primary Care Provider Reason for Visit Reason Onset Date Comments Labs Only 03/07/2020 Encounter Details Date Type Department Care Team Description 03/07/2020 Telephone Hematology and Oncol ogy at [facility] [place] [address] Social History Tobacco Use Types Packs/Day Years Used Date Never Smoker Smokeless Tobacco: Never Used Alcohol Use Standard Drinks/Week Comments No 0 (1 standard drink = 0.6 oz pure alcoho l) Sex Assigned at Date Recorded Not on file documented as of this encounter Miscellaneous Notes Telephone Encounter - Princess Major RN - 03/07/2020 1:37 PM EDT Received lab results 03-07-20 via fax from [facility]. Request sent to Tatiana Vincent to input results into eD and forward to Dr Ignacio and Gloria Grant NP. Labs stable: H/H=11.1/35.2, PLT=56, iron =77, UNYB=988 and transferrin=27. [facility] is managing anemia. Per note 02-29-20, continue with current POC. RN will continue to track labs [id number], monitor status and coordinate care. documented in this encounter Plan of Treatment Upcoming Encounters Date Type Specialty Care Team Description 06/19/2022 Office Visit Rheumatology Richi Blackmon MD [facility] DR RHEUMATOLOGY [place], [place] [address] (Wo rk) Scheduled Procedures Name Priority Associated Diagnoses Date/Time EGD, UPPER GI ENDOSCOPY Family hx of colon cance r COLONOSCOPY, DIAGNOSTIC Family hx of colon cance r documented as of this encounter Visit Diagnoses Not on filedocumented in this encounter Care Teams Batch Heat Treat Operator Relationship Specialty Start Date End Date Jazmine Baer MD PCP - General 11/07/10 [address] [place] [address] documented as of this encounter
--- OUTSIDE RECORDS SUMMARY | 2022-04-11 10:48 | XMS_ITS | Encounter Summary ---
:1960 Author Organization [facility] [place] [address] Care Team Providers Name Role Phone Jazmine Baer MD Primary Care Provider Encounter Details Date Type Department Care Team Description 05/02/2020 Telephone Rheumatology at [facility] [place] [address] Social History Tobacco Use Types Packs/Day Years Used Date Never Smoker Smokeless Tobacco: Never Used Alcohol Use Standard Drinks/Week Comments No 0 (1 standard drink = 0.6 oz pure alcoho l) Sex Assigned at Date Recorded Not on file documented as of this encounter Miscellaneous Notes Telephone Encounter - Jeffry Granados, RN - 05/02/2020 10:24 AM EST Called [facility] infusion and they report that Bucky receives 2 doses every month, and not every 2 weeks. I also told them and faxed to them the order from Corrine Gomes for changing the Solumedrol from 250 mg to 125 mg. documented in this encounter Plan of Treatment Upcoming Encounters Date Type Specialty Care Team Description 06/19/2022 Office Visit Rheumatology Richi Blackmon MD [facility] DR RHEUMATOLOGY [place], [place] [address] (Wo rk) Scheduled Procedures Name Priority Associated Diagnoses Date/Time EGD, UPPER GI ENDOSCOPY Family hx of colon cance r COLONOSCOPY, DIAGNOSTIC Family hx of colon cance r documented as of this encounter Visit Diagnoses Not on filedocumented in this encounter Care Teams Coal Grader Relationship Specialty Start Date End Date Jazmine Baer MD PCP - General 11/07/10 [address] [place] [address] documented as of this encounter
--- OUTSIDE RECORDS SUMMARY | 2022-04-11 10:48 | XMS_ITS | Encounter Summary ---
:1960 Author Organization [facility] [place] [address] Care Team Providers Name Role Phone Jazmine Baer MD Primary Care Provider Encounter Details Date Type Department Care Team Description 09/30/2019 Orders Only Nephrology Hypertension Sofi, CKD (chronic kidney [place] [facility] [place] [place] disease) stage 3, GFR [facility] D rive 30-59 ml/[place] [address] Social History Tobacco Use Types Packs/Day [...] Richi Blackmon MD [facility] DR RHEUMATOLOGY [place], [place] [address] (Wo rk) Scheduled Orders Name Type Priority Associated Diagnoses Order S chedule CBC (with Diff) Lab Routine CKD (chronic kidney disea se) Expected: 09/30/2019, stage 3, GFR 30-59 ml/min Ex kimberly: 03/31/2020 Scheduled Procedures Name Priority Associated Diagnoses Date/Time EGD, UPPER GI ENDOSCOPY Family hx of colon cance r COLONOSCOPY, DIAGNOSTIC Family hx of colon cance r documented as of this encounter Results Phosphorus (02/29/2020 10:30 AM EDT) P athologist Signature Phosphorus 3.3 2.5 - 4.5 [facility] mg/dL [facility] Specimen Anatomical Collection Method Collection Time Receive d Time (Source) Location / / Volume Laterality Blood specimen 02/29/2020 10:30 0 (specimen) AM EDT 10:41 AM EDT Resulting Agency Comment Spec In Lab Lea Villavicencio MD CHEMISTRY ORDERABLES Performing Organization Address City/State/[place] [address] documented in this encounter Visit Diagnoses Diagnosis CKD (chronic kidney disease) stage 3, GF R 30-59 ml/min Chronic kidney disease, Stage III (moder ate) documented in this encounter Care Teams Warehouse Driver Relationship Specialty Start Date End Date Jazmine Baer MD PCP - General 11/07/10 [address] [place] [address] documented as of this encounter
--- OUTSIDE RECORDS SUMMARY | 2022-04-11 10:48 | XMS_ITS | Encounter Summary ---
:1960 Author Organization [facility] [place] [address] Care Team Providers Name Role Phone Jazmine Baer MD Primary Care Provider Encounter Details Date Type Department Care Team Description 04/14/2020 Orders Only Nephrology Hypertension Pb Farah 3 chronic kidney at [facility] [place] disease, unspecified [facility] D rive whether stage 3a or 3b [place] [address] CKD [phone] Social History Tobacco Use Types Packs/Day Years Used Date Never Smoker Smokeless Tobacco: Never Used Alcohol Use Standard Drinks/Week Comments No 0 (1 standard drink = 0.6 oz pure alcoho l) Sex Assigned at Date Recorded Not on file documented as of this encounter Plan of Treatment Upcoming Encounters Date Type Specialty Care Team Description 06/19/2022 Office Visit Rheumatology Richi Blackmon MD [facility] DR RHEUMATOLOGY [place], [place] [address] (Wo rk) Scheduled Procedures Name Priority Associated Diagnoses Date/Time EGD, UPPER GI ENDOSCOPY Family hx of colon cance r COLONOSCOPY, DIAGNOSTIC Family hx of colon cance r documented as of this encounter Visit Diagnoses Diagnosis Stage 3 chronic kidney disease, unspecif ied whether stage 3a or 3b CKD documented in this encounter Care Teams Center Manager Relationship Specialty Start Date End Date Jazmine Baer MD PCP - General 11/07/10 [address] [place] [address] documented as of this encounter
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
--- OUTSIDE RECORDS SUMMARY | 2022-04-11 10:48 | XMS_ITS | Encounter Summary ---
:1960 Author Organization [facility] [place] [address] Care Team Providers Name Role Phone Jazmine Baer MD Primary Care Provider Encounter Details Date Type Department Care Team Description 04/20/2020 External Results Hematology and Oncology [place] [address] Social History Tobacco Use Types Packs/Day Years Used Date Never Smoker Smokeless Tobacco: Never Used Alcohol Use Standard Drinks/Week Comments No 0 (1 standard drink = 0.6 oz pure alcoho l) Sex Assigned at Date Recorded Not on file documented as of this encounter Plan of Treatment Upcoming Encounters Date Type Specialty Care Team Description 06/19/2022 Office Visit Rheumatology Richi Blackmon MD [facility] RHEUMATOLOGY [place], [place] [address] (Wo rk) Scheduled Procedures Name Priority Associated Diagnoses Date/Time EGD, UPPER GI ENDOSCOPY Family hx of colon cance r COLONOSCOPY, DIAGNOSTIC Family hx of colon cance r documented as of this encounter Procedures Procedure Name Priority Date/Time Associated Comments Diagnosis CRP, ACUTE Routine 04/18/2020 7:14 AM Results f or this INFLAMMATION EST procedure are i n the results section. CBC (WITH DIFF) Routine 04/18/2020 7:14 AM Result s for this EST procedure are i n the results section. URIC ACID Routine 04/18/2020 7:14 AM Results f or this EST procedure are i n the results section. PHOSPHORUS Routine 04/18/2020 7:14 AM Results f or this EST procedure are i n the results section. BASIC METABOLIC PANEL Routine 04/18/2020 7:14 AM Results for this (NON-FASTING) EST procedure are in the results section. documented in this encounter Results (ABNORMAL) CRP, acute inflammation (04/18/2020 7:14 AM EST) athologist Signature CRP 1.09 0.0 - 0.3 EXTERNAL LAB (EXTERNAL/A BN) Specimen (Source) Anatomical Collection Method Collection Time Re ceived Time Location / / Volume Laterality Blood specimen 04/18/2020 7:14 AM (specimen) EST Historical Provider MD CHEMISTRY ORDERABLES Performing Organization Address City/State/ZIP Code Phon e Number EXTERNAL FACILITY EXTERNAL LAB Uric acid (04/18/2020 7:14 AM EST) athologist Signature Uric Acid 4.4 3.5 - 7.2 EXTERNAL LAB Specimen (Source) Anatomical Collection Method Collection Time Re ceived Time Location / / Volume Laterality Blood specimen 04/18/2020 7:14 AM (specimen) EST Historical Provider MD CHEMISTRY ORDERABLES Performing Organization Address City/State/ZIP Code Phon e Number EXTERNAL FACILITY EXTERNAL LAB Phosphorus (04/18/2020 7:14 AM EST) athologist Signature Phosphorus 3.1 2.6 - 4.7 EXTERNAL LAB Specimen (Source) Anatomical Collection Method Collection Time Re ceived Time Location / / Volume Laterality Blood specimen 04/18/2020 7:14 AM (specimen) EST Historical Provider MD CHEMISTRY ORDERABLES Performing Organization Address City/State/ZIP Code Phon e Number EXTERNAL FACILITY EXTERNAL LAB (ABNORMAL) Basic Metabolic Panel (non-fasting) (04/18/2020 7:14 AM EST) Analysis Performed At Patho logist Time Signature Glucose Lvl 133 74 - 106 EXTERNAL LAB (EXTERNAL/ ABN) BUN 51 7 - 18 EXTERNAL LAB (EXTERNAL/ ABN) Creatinine 2.05 0.70 - EXTERNAL LAB (EXTERNAL/ 1.30 ABN) Estimated GFR 33.07 EXTERNAL LAB Sodium 142 136 - 145 EXTERNAL LAB Potassium 4.3 3.5 - 5.1 EXTERNAL LAB Chloride 109 98 - 107 EXTERNAL LAB (EXTERNAL/ ABN) CO2 25 21.0 - EXTERNAL LAB 32.0 Calcium 8.3 8.5 - 10.1 EXTERNAL LAB (EXTERNAL/ ABN) Albumin 3.1 3.4 - 5.0 EXTERNAL LAB (EXTERNAL/ ABN) Specimen (Source) Anatomical Collection Method Collection Time Re ceived Time Location / / Volume Laterality Blood specimen 04/18/2020 7:14 AM (specimen) EST Historical Provider CHEMISTRY ORDERABLES Performing Organization Address City/State/ZIP Code Phon e Number EXTERNAL FACILITY EXTERNAL LAB (ABNORMAL) CBC (with Diff) (04/18/2020 7:14 AM EST) [facility] gist Method Time Signature WBC 4.48 4.4 - 10.8 EXTERNAL LAB Hemoglobin 11.2 13.5 - EXTERNAL LAB (EXTERNAL/ 17.5 ABN) Hematocrit 36.1 40.0 - EXTERNAL LAB (EXTERNAL/ 50.0 ABN) Platelets 65 130 - 400 EXTERNAL LAB (EXTERNAL/ ABN) Neutr Abs (ANC) 2.79 1.2 - 6.7 EXTERNAL LAB Lymphocyte Abs 0.70 1.2 - 3.4 EXTERNAL LAB (EXTERNAL/ ABN) Specimen (Source) Anatomical Collection Method Collection Time Re ceived Time Location / / Volume Laterality Blood specimen 04/18/2020 7:14 AM (specimen) EST Historical Provider HEMATOLOGY ORDERABLES Performing Organization Address City/State/ZIP Code Phon e Number EXTERNAL FACILITY EXTERNAL LAB documented in this encounter Visit Diagnoses Not on filedocumented in this encounter Care Teams Field Care Manager Relationship Specialty Start Date End Date Jazmine Baer MD PCP - General 11/07/10 [address] [place] [address] documented as of this encounter
--- OUTSIDE RECORDS SUMMARY | 2022-04-11 10:48 | XMS_ITS | Encounter Summary ---
:1960 Author Organization [facility] [place] [address] Care Team Providers Name Role Phone Jazmine Baer MD Primary Care Provider Encounter Details Date Type Department Care Team Description 06/15/2020 Office Visit Rheumatology at [facility] Corrine Gomes, Low back pain, non-specific; [facility] GEOSPATIAL INFORMATION TECHNOLOGIST Gout, unspecified cause, unspecified chr onicity, unspecified site; [facility]; [place] [address] Center alf current use of systemic steroi ds; [phone] [place], [place] Chronic kidney disease, unspecified CKD stage ; [address] Long-term current use of intravenous imm unoglobulin (IVIG) Social History Tobacco Use Types Packs/Day Years Used Date Never Smoker Smokeless Tobacco: Never Used Alcohol Use Standard Drinks/Week Comments No 0 (1 standard drink = 0.6 oz pure alcoho l) Sex Assigned at Date Recorded Not on file documented as of this encounter Last Filed Vital Signs Vital Sign Reading Time Taken Comments Blood Pressure 165/78 06/15/2020 9:49 AM EST Pulse 72 06/15/2020 9:49 AM EST Temperature 36.4 ??C (97.6 ??F) 06/15/2020 9:49 AM EST Respiratory Rate 20 06/15/2020 9:49 AM EST Oxygen Saturation 98% 06/15/2020 9:49 AM EST Inhaled Oxygen Concentration - - Weight 139.6 kg (307 lb 12.8 oz) 06/15/2020 9:49 AM EST Height 175.3 cm (5' 9) 06/15/2020 9:49 AM EST Body Mass Index 45.45 06/15/2020 9:49 AM EST documented in this encounter Patient Instructions Patient InstructionsCorrine Gomes APRN - 06/15/2020 10:00 AM EST Xrays. Let me know after your next infusion how you were doing prior to the infusion re myopathy and how your back is doing. I will keep the same solumedrol dose for now (125). documented in this encounter Progress Notes Corrine Gomes APRN - 06/15/2020 10:00 AM EST Rheumatology Outpatient Follow-up Note Rheumatology History: Statin-induced [...] g/kg with 2 infusions per month at [facility] on 2 successive days with Solu-medrol [...] azathioprine, mycophenolate, rituximab, and methotrexate (intolerant of MTX). Gout: ?? Started in the great toes MTPs bilaterally several years ago. Then when he was in the hospital a couple 3 years ago at [facility] he had his knee drained and says it was related to gout. He has not had follow up for the knee since it was drained. ?? No flares on allopurinol 400 mg. Has not needed to take additional colchicine. Uric acid level 4.4 at [facility] 04/2020. Interval History: Les presents today for follow up of stain-induced myopathy and gout. Last seen 03/15/2020 for his initial visit with me. Overall doing well with monthly IVIG infusions. We have been tapering his Solu-medrol. Last infusion was 06/13-10/2020. Tolerating treatment well. He is maintaining COVID19 precautions re social distancing and masking. Does not know when he will be offered vaccine. Medications prescribed by Rheumatology: ?? Infusions at [facility]: ?? IVIG infusions 1000 mg/kg (127 grams) 2 doses per month on successive days ?? Solumedrol 125 mg with 1st IVIG (see taper notes in Rheumatology history) ?? Acetaminophen 650 mg + diphenhydramine 25 mg with each infusion ?? Allopurinol 400 mg daily ?? Colchicine 0.6 mg daily; and for flares (has not needed) Myopathy: Had been doing well at baseline until 2-3 days before his 06/13/2020 infusion. He started tofeel some muscle weakness, eg when climbing a flight of stairs he had to pull himself up by the railing which is unusual for him. Low back pain: ?? Deep in right flank. ?? Large area about the size of his palm. ?? Non-tender. ?? 8/10 pain. ?? Feels tight clenching, not burning or stabbing. ?? Sudden onset with gradual resolution within about 2-3 minutes. ?? Worsens with rolling over in bed (wakes him up), getting OOB, getting out of a chair, after a fewminutes of walking. ?? Heating ointments, icy hot, and/or Tylenol does not help. ?? Intermittent, might be a couple of days in a row, one time it lasted for a week within the last few months, had once or twice in 04/2020. ?? Had this pain with initial myopathy, improved when the myopathy improved. ?? For a year prior to the last few months did not have this pain. Baseline physical function with treatment as reviewed [...] issues as reviewed at 03/2020 visit: ?? Diabetes: Good control with recent HgbA1c 6.2% (updated today) by patient report. Diabetes managed by primary care; has seen a i o psychologist at his local health center; not eating as much, doesn't feel as hungry. ?? DEAN: Had a sleep apnea consult and says the specialist thought he likely had sleep apnea; did nothave a sleep study because he does not think he would tolerate a CPAP. ?? Obesity: Weight has gone up 30 lbs since COVID -- he was getting out more before the pandemic. Hard to walk around with a mask due to difficulty breathing. He used to get a lot of his activity walking around in stores. ?? Followed by Dr. Silvestre for spot on liver. ?? 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 Dr. Balderrama. ?? Sees hematology for iron infusions at [facility]. Has had 3 bone marrow biopsies due to concern about cause of iron-deficiency anemia. Hypertension: Checks BP at home 135/80 and has checked machine. Review of Systems: General: Denies generalized pain, [...] Obesity Mother ??? Myocardial Infarction Father first PA at 36 ??? Coronary Artery Disease Father [...] 2009. 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 Physical Examination: Patient Vitals for the past 24 hrs: Temp Pulse Resp BP SpO2 06/15/20 0949 36.4 ??C (97.6 ??F) 72 20 165/78 98 % General: Morbidly obese, alert and oriented [...] co-ordinated using a cane. Speech clearly articulated. Stripper And Taper strength +4/5 = bilaterally. Strength with lower leg extension against light resistance +3/5 = bilaterally. Decreased strength with ankle flexion against resistance on L compared to R (L 2-3/5, R 4/5). Musculature: No obvious atrophy. Back: NT lumbar/thoracic back including spine. No spasm noted. No CVA tenderness; Extremities: Hands: No synovitis, swelling, tenderness Wrists: normal ROM, no swelling or tenderness DATA: Labs 03/07/2020 with oncology. Ordered by Richard Basurto MD, in [place], [place]. Lab reports are on file from 03/07/20 showing creatinine 1.95, GFR 35, mild anemia with RBC 3.6, hemoglobin 11.4, hematocrit 36.6, MCV 100.8. Platelets were low at 69. CK 01/25/2020 = 73. 06/13/2020 (OSH): Stable anemia; creatinine 1.68 with GFR 41; CK 61; CRP 0.81 mg/dL. Ref. Range 05/16/2020 07:25 WBC Latest Ref Range: 4.4 - 10.8 4.71 Hemoglobin Latest Ref Range: 13.5 - 17.5 11.6 (EXTERNAL/ABN) Hematocrit Latest Ref Range: 40.0 - 50.0 36.7 (EXTERNAL/ABN) Platelets Latest Ref Range: 130 - 400 69 (EXTERNAL/ABN) Neutr Abs (ANC) Latest Ref Range: 1.2 - 6.7 2.98 Lymphocyte Abs Latest Ref Range: 1.2 - 3.4 0.66 (EXTERNAL/ABN) Creatinine Latest Ref Range: 0.70 - 1.30 1.68 (EXTERNAL/ABN) Estimated GFR Unknown 41.61 (EXTERNAL/ABN) CK, Total Latest Ref Range: 39 - 308 61 CRP Latest Ref Range: 0.0 - 0.3 0.81 (EXTERNAL/ABN) Impression: Bucky Acevedo is a 60 y.o. male who presents today for continued management of statin induced myopathy and gout. Statin induced myopathy -- Symptoms have been stable with IVIG infusions (1000 mg/kg = 127 grams) monthly (2 doses on consecutive days) at [facility] plus Solu- Medrol on day 1 tapered to 125 mg starting with05/13/2020 infusion. Concern that he noticed increased muscle weakness 2-3 days prior to 06/13/2020 infusion with resolution of symptoms after the infusion. Will continue current dose solumedrol and see how he does. Low back pain R flank -- sounds like spasm which could be associated with spine pathology though by Les's report it is reminiscent of myopathy. Concern for renal etiology given location but no CVA tenderness or urinary complaints. Gout: No flares on allopurinol 400 mg [...] Continue Solu-Medrol with first IVIG infusion at 125 mg dose for the time being while we investigate his back issue. We will plan to discuss discontinuation or decreasing dose in the coming months. 3. LS and TS xrays ordered to be done at [facility]. 4. Trial muscle relaxant may be helpful and discussed with Jayden Valdez MD, not contraindicated with myopathy. Concern for use of cyclobenzaprine with his renal impairment though would consider starting at 5 mg dose. Diazepam would be safer from a renal perspective though may cause more sedation. Les has left the office so will discuss outside of visit. 5. I will cc nephrology on this note due to location of back pain and follow up if imaging and conservative treatment are not helpful. 6. Follow up 3 months as scheduled. Patient Instructions Xrays. Let me know after your next infusion how you were doing prior to the infusion re myopathy and how your back is doing. I will keep the same solumedrol dose for now (125). Orders Placed This Encounter Procedures ??? XR Lumbar Spine 2 Or 3 Views (Generic) ??? XR Thoracic Spine 2 views Total time associated with visit: 65 minutes CC: Jazmine Baer MD CC: Lea Villavicencio MD (nephrology) -- re flank pain; workup; treatment documented in this encounter Plan of Treatment Upcoming Encounters Date Type Specialty Care Team Description 06/19/2022 Office Visit Rheumatology Richi Blackmon MD [facility] [address] RHEUMATOLOGY [place] [id number] (Wo rk) Scheduled Procedures Name Priority Associated Diagnoses Date/Time EGD, UPPER GI ENDOSCOPY Family hx of colon cance r COLONOSCOPY, DIAGNOSTIC Family hx of colon cance r documented as of this encounter Visit Diagnoses Diagnosis Low back pain, non-specific Gout, unspecified cause, unspecified chr onicity, unspecified site Myopathy Myopathy, unspecified alf current use of systemic steroi ds Encounter for long-term (current) use of steroids Chronic kidney disease, unspecified CKD stage Long-term current use of intravenous imm unoglobulin (IVIG) documented in this encounter Care Teams Bone Tender Relationship Specialty Start Date End Date Jazmine Baer MD PCP - General 11/07/10 [address] [place] [address] documented as of this encounter
--- OUTSIDE RECORDS SUMMARY | 2022-04-11 10:48 | XMS_ITS | Encounter Summary ---
:1960 Author Organization [facility] [place] [address] Care Team Providers Name Role Phone Jazmine Baer MD Primary Care Provider Reason for Visit Reason Onset Date Comments Labs Only 03/25/2020 Encounter Details Date Type Department Care Team Description 03/25/2020 Telephone Hematology and Oncol ogy at [facility] Princess [place], [place] [address] Social History Tobacco Use Types Packs/Day Years Used Date Never Smoker Smokeless Tobacco: Never Used Alcohol Use Standard Drinks/Week Comments No 0 (1 standard drink = 0.6 oz pure alcoho l) Sex Assigned at Date Recorded Not on file documented as of this encounter Miscellaneous Notes Telephone Encounter - Princess Major RN - 03/27/2020 8:45 PM EDT Received lab results 03-22-20 via fax from [facility]. Request sent to Tatiana Vincent to input results into eD and forward to Dr Ignacio and Gloria Grant NP. Labs stable: H/H=11.1/34.9, PLT=65, Cr=1.78. [facility] is managing anemia. Per note 02-29-20, continue with current POC: Aranesp 60 mcg SQ injection q2 weeks for for Hgb < 12 and Venofer 300mg IV every 4 weeks x 6 for iron saturation < 30. RN will continue to track labs [id number], monitor status and coordinate care. documented in this encounter Plan of Treatment Upcoming Encounters Date Type Specialty Care Team Description 06/19/2022 Office Visit Rheumatology Richi Blackmon MD [facility] [address] RHEUMATOLOGY [place], [place] [address] (Wo rk) Scheduled Procedures Name Priority Associated Diagnoses Date/Time EGD, UPPER GI ENDOSCOPY Family hx of colon cance r COLONOSCOPY, DIAGNOSTIC Family hx of colon cance r documented as of this encounter Visit Diagnoses Not on filedocumented in this encounter Care Teams Software Engineer Web Services Relationship Specialty Start Date End Date Jazmine Baer MD PCP - General 11/07/10 [address] [place] [address] documented as of this encounter
--- OUTSIDE RECORDS SUMMARY | 2022-04-11 10:48 | XMS_ITS | Encounter Summary ---
:1960 Author Organization [facility] [place] [address] Care Team Providers Name Role Phone Jazmine Baer MD Primary Care Provider Reason for Visit Reason Onset Date Comments Labs Only 06/09/2020 Encounter Details Date Type Department Care Team Description 06/09/2020 Telephone Hematology and Oncol ogy at [facility] Princess Major, [place] [address] Social History Tobacco Use Types Packs/Day Years Used Date Never Smoker Smokeless Tobacco: Never Used Alcohol Use Standard Drinks/Week Comments No 0 (1 standard drink = 0.6 oz pure alcoho l) Sex Assigned at Date Recorded Not on file documented as of this encounter Miscellaneous Notes Telephone Encounter - Princess Major, RN - 06/09/2020 8:07 AM EST Received lab results??05-30-20 via fax from [facility]. [facility] Dr Ignacio and Gloria Grant NP. ?? PLT=48, sl slower than baseline. Other labs stable: H/H=11.1/34.8, Cr=2.09.??Iron=66, CGSW=768, ironsat=22. [facility] is managing anemia. Per note 02-29-20, continue with current POC:??Aranesp 60 mcg SQ injection q2 weeks for for Hgb < 12??and??Venofer 300mg IV every 4 weeks x 6 for iron saturation <??30. Note sent to Dr Ignacio regarding drop on PLT. Pt is due for lab re-draw on 06-13-20. ?? RN will continue to track labs [id number], monitor status and coordinate care.?? documented in this encounter Plan of Treatment Upcoming Encounters Date Type Specialty Care Team Description 06/19/2022 Office Visit Rheumatology Richi Blackmon MD [facility] DR RHEUMATOLOGY [place], [place] [address] (Wo rk) Scheduled Procedures Name Priority Associated Diagnoses Date/Time EGD, UPPER GI ENDOSCOPY Family hx of colon cance r COLONOSCOPY, DIAGNOSTIC Family hx of colon cance r documented as of this encounter Visit Diagnoses Not on filedocumented in this encounter Care Teams Musculoskeletal Physician Relationship Specialty Start Date End Date Jazmine Baer MD PCP - General 11/07/10 [address] [place] [address] documented as of this encounter
--- OUTSIDE RECORDS SUMMARY | 2022-04-11 10:48 | XMS_ITS | Encounter Summary ---
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; [facility] Myopathy; [facility] Gout, uns pecified cause, unspecified chronicity, unspecified site; [facility] Hepatic cirrhosis, unspecifi ed hepatic cirrhosis type, unspecified [place] [id number] Social History Tobacco Use Types Packs/Day Years Used Date Never Smoker Smokeless Tobacco: Never Used Alcohol Use Standard Drinks/Week Comments No 0 (1 standard drink = 0.6 oz pure alcoho l) Sex Assigned at Date Recorded Not on file documented as of this encounter Plan of Treatment Upcoming Encounters Date Type Specialty Care Team Description 06/19/2022 Office Visit Rheumatology Richi Blackmno MD [facility] DR RHEUMATOLOGY [place], [place] [address] (Wo rk) Scheduled Procedures Name Priority Associated Diagnoses Date/Time EGD, UPPER GI ENDOSCOPY Family hx of colon cance r COLONOSCOPY, DIAGNOSTIC Family hx of colon cance r documented as of this encounter Procedures Procedure Name Priority Date/Time Associated Comments Diagnosis HC C-REACTIVE PROTEIN Routine 03/15/2020 12:32 Myopathy Re sults for this PM EDT procedure are i n the results section. HC ALPHA FETOPROTEIN Routine 03/15/2020 12:32 Hepatic cirrhosi s, Results for this TUMOR MARKER PM EDT unspecified hepatic procedur e are in cirrhosis type, the results unspecified whether section. ascites present HC VITAMIN D TOTAL-25 Routine 03/15/2020 12:32 intermediate accountant curre nt Results for this HYDROXY PM EDT use of systemic procedure ar e in steroids the results section. HC PROTHROMBIN TIME Routine 03/15/2020 12:32 Hepatic cirrhosis , Results for this PM EDT unspecified hepatic procedur e are in cirrhosis type, the results unspecified whether section. ascites present HC URIC ACID, SERUM Routine 03/15/2020 12:32 Gout, unspecified Results for this PM EDT cause, unspecified procedure are in chronicity, the results unspecified site section. HC CREATINE Routine 03/15/2020 12:32 Myopathy Results for this PHOSPHOKINASE, SERUM PM EDT procedu re are in the results section. COMPREHENSIVE Routine 03/15/2020 12:32 Hepatic cirrhosis, Resu lts for this METABOLIC PANEL PM EDT unspecified hepatic proce dure are in (NON-FASTING) cirrhosis type, the results unspecified whether section. ascites present documented in this encounter Results (ABNORMAL) Comprehensive metabolic panel (non-fasting) (03/15/2020 12:32 PM EDT) P athologist Signature Glucose Lvl 166 65 - 199 [facility] mg/dL [facility] Comment: Diabetes: >=200 mg/dL plus symp toms BUN 52 (H) 10 - 20 mg/dL [facility] Creatinine 1.88 (H) 0.80 - 1.50 mg/dL [facility] Sodium 138 135 - 145 mmol/L [facility] Potassium 4.5 3.5 - 5.0 mmol/L [facility] Comment: Please note: ??Patients with WBC >100,00 0 may have falsely elevated Potassium levels. ??For accurate Potassium quantif ication in these patients send serum separator tube (gold top) for subsequent determinations. ??Contact the Clinical Chemistry Laboratory if there are any qu estions. Chloride 107 98 - 107 mmol/L [facility] CO2 20 (L) 22 - 31 mmol/L [facility] Anion Gap 11 5 - 15 mmol/L [facility] Calcium 9.4 8.5 - 10.5 mg/dL [facility] Total Protein 7.9 6.1 - 8.0 gm/dL [facility] Albumin 3.8 3.2 - 5.2 gm/dL [facility] AST 22 0 - 39 unit/L [facility] ALT 15 0 - 55 unit/L [facility] Alk Phos 116 40 - 130 unit/L [facility] Total Bilirubin 0.3 0.2 - 1.3 mg/dL [facility] Estimated GFR 38 (L) >=60 mL/min/1.73 m?? [facility] Comment: The eGFR was calculated using the CKD-EP I equation. As with all creatinine based estimates of kidney function, eGFR values calculated with the CKD-EPI equation are not accurate in patients wi th acute kidney failure, extremes of body mass or the acutely ill. http://[employer]/[facility] eGFR 44 (L) >=60 mL/min/1.73 m?? [facility] Comment: The eGFR was calculated using the CKD-EP I equation. As with all creatinine based estimates of kidney function, eGFR values calculated with the CKD-EPI equation are not accurate in patients wi th acute kidney failure, extremes of body mass or the acutely ill. http://[employer]/[facility] Specimen Anatomical Collection Method Collection Time Receive d Time (Source) Location / / Volume Laterality Blood specimen 03/15/2020 12:32 0 (specimen) PM EDT 12:53 PM EDT Resulting Agency Comment Spec In Lab Rhiannon Headley MD CHEMISTRY ORDERABLES Performing Organization Address City/State/[place] [address] Prothrombin Time (03/15/2020 12:32 PM EDT) P athologist Signature PT 12.2 9.4 - 12.5 [facility] LABORATORY INR 1.1 [facility] Comment: An INR <2.0 indicates adequate [...] Headley MD HEMATOLOGY ORDERABLES Performing Organization Address City/[facility]/[place] [address] AFP tumor marker (03/15/2020 12:32 PM EDT) athologist Signature AFP 3.2 <=8.3 ng/mL [facility] Specimen Anatomical Collection Method Collection Time Receive d Time (Source) Location / / Volume Laterality Blood specimen 03/15/2020 12:32 0 (specimen) PM EDT 12:53 PM EDT Resulting Agency Comment Spec In Lab Rhiannon Headley MD CHEMISTRY ORDERABLES Performing Organization Address City/[facility]/[place] [address] Uric acid (03/15/2020 12:32 PM EDT) athologist Signature Uric Acid 4.7 3.5 - 8.5 [facility] Specimen Anatomical Collection Method Collection Time Receive d Time (Source) Location / / Volume Laterality Blood specimen 03/15/2020 12:32 0 (specimen) PM EDT 12:53 PM EDT Resulting Agency Comment Spec In Lab Corrine Gomes APRN CHEMISTRY ORDERABLES Performing Organization Address City/[facility]/[place] [address] (ABNORMAL) CRP, acute inflammation (03/15/2020 12:32 PM EDT) athologist Signature CRP 9.2 (H) <=4.9 mg/L [facility] Specimen Anatomical Collection Method Collection Time Receive d Time (Source) Location / / Volume Laterality Blood specimen 03/15/2020 12:32 0 (specimen) PM EDT 12:53 PM EDT Resulting Agency Comment Spec In Lab Corrineclarisa Gomes APPLICATIONS SPECIALIST CHEMISTRY ORDERABLES Performing Organization Address City/[facility]/[place] [address] CK (03/15/2020 12:32 PM EDT) athologist Signature CK, Total 91 0 - 200 [facility] unit/L [facility] Specimen Anatomical Collection Method Collection Time Receive d Time (Source) Location / / Volume Laterality Blood specimen 03/15/2020 12:32 0 (specimen) PM EDT 12:53 PM EDT Resulting Agency Comment Spec In Lab Corrineclarisa Gomes APPLICATIONS SPECIALIST CHEMISTRY ORDERABLES Performing Organization Address City/[facility]/[place] [address] Vitamin D, 25-Hydroxy (03/15/2020 12:32 PM EDT) athologist Signature 25-OH Vit D 41 21 - 100 [facility] Total ng/mL [facility] Comment: Please note, effective October 14, 2019, shruthi tional result field for Vitamin D Interpretation, and updated flagging not ification. 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
--- OUTSIDE RECORDS SUMMARY | 2022-04-11 10:48 | XMS_ITS | Encounter Summary ---
:1960 Author Organization [facility] [place] [address] Care Team Providers Name Role Phone Jazmine Baer MD Primary Care Provider Encounter Details Date Type Department Care Team Description 06/15/2020 Orders Only Rheumatology at [facility] Corrine Gomes APRN [facility] [place] [address] [place] [address] [phone] (Wo rk) Social History Tobacco Use Types [...] 06/19/2022 Office Visit Rheumatology Richi Blackmon MD [facility] RHEUMATOLOGY [place], [place] [address] (Wo rk) Scheduled Procedures Name Priority Associated Diagnoses Date/Time EGD, UPPER GI ENDOSCOPY Family hx of colon cance r COLONOSCOPY, DIAGNOSTIC Family hx of colon cance r documented as of this encounter Visit Diagnoses Not on filedocumented in this encounter Care Teams Press Washer Relationship Specialty Start Date End Date Jazmine Baer MD PCP - General 11/07/10 [address] [place] [address] documented as of this encounter
--- OUTSIDE RECORDS SUMMARY | 2022-04-11 10:48 | XMS_ITS | Encounter Summary ---
:1960 Author Organization [facility] [place] [address] Care Team Providers Name Role Phone Jazmine Baer MD Primary Care Provider Reason for Referral Consultation (Routine) - Closed Specialty Diagnoses / Procedures Referred By Contact Refer red To Contact Sleep Center Diagnoses Snoring Damaris Daniel MD [facility] Sleep Medicine Procedures PRG POLYSOM 6+ YRS SLEEP W 4+ ADDL SHADE ATTND [facility] [address] [place] [address] [place] [address] Referral ID Status Reason Start Date Expiration Date Visits V isits Requested Authorized [id number] Closed Test Only 06/22/2019 06/21/2020 1 1 Reason for Visit Consultation (Routine) - Closed Specialty Diagnoses / Procedures Referred By Contact Refer red To Contact Sleep Center Diagnoses Myositis of other site, 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 chronic kidney disease, unspecified whether longterm insulin use Akash Prieto MD [facility] Sleep Medicine [facility] [address] [place] [address] [place] [address] Referral ID Status Reason Start Date Expiration Date Visits V isits Requested Authorized [id number] Closed Consult, 03/31/2019 03/30/2020 1 1 Test & Treat Encounter Details Date Type Department Care Team Description 06/22/2019 Office Visit Sleep Center at Damaris Daniel MD Snoring; [address] [facility] Apnea; [address] Disrupted sleep-wake cycle [place], [place] SLEEP DISORDERS [address] CENTER [phone] [place], [place] [address] (Wo rk) Social History Tobacco Use Types Packs/Day Years Used Date Never Smoker Smokeless Tobacco: Never Used Alcohol Use Standard Drinks/Week Comments No 0 (1 standard drink = 0.6 oz pure alcoho l) Sex Assigned at Date Recorded Not on file documented as of this encounter Last Filed Vital Signs Vital Sign Reading Time Taken Comments Blood Pressure 155/64 06/22/2019 9:49 AM EST Pulse 68 06/22/2019 9:49 AM EST Temperature - - Respiratory Rate - - Oxygen Saturation 99% 06/22/2019 9:49 AM EST Inhaled Oxygen Concentration - - Weight 130.9 kg (288 lb 9.6 06/22/2019 9:49 AM oz) EST Height 175.3 cm (5' 9) 06/22/2019 9:49 AM Patient repo rts EST Body Mass Index 42.62 06/22/2019 9:49 AM EST documented in this encounter Progress Notes Damaris Daniel MD - 06/22/2019 10:00 AM EST Sleep Medicine Consultation Note HPI: Bucky Acevedo is a 59 y.o. male seen at the request of Dr. Akash Prieto for advice regarding possible obstructive sleep apnea. 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 At that time had trouble getting to sleep due to pain. Gets infusions currently every2 weeks which includes high dose steroids, so has a lot of trouble sleeping with that. reports snoring - probably predates 2009. He thinks the snoring has progressed - she can have trouble sleeping because of the snoring. She has reported pauses in breathing which seems newer since 2009. He's notaware of waking gasping or choking. Feels likes wakes a lot. Has to get up 2-3x to urinate. Does have daytime sleepiness - noticeable since 2009. Limited activity due to muscle issues - may be watchingTV, on computer. May fall asleep watching TV 1-2x week. Doesn't fall asleep at computer. Denies sleepiness with driving. Denies accidents/close calls. Doesn't feel limited by sleepiness - more limited from the weakness. Sleep Pattern: Bed/Recliner/Wedge: bed, flat Bedtime: 9-9:30 Lights out: watches TV until feels tired (usually around [place]) then shuts TV off Latency: 15-30min Awakenings: 2-3x Duration: variable Reason: bathroom Wake time: around 8 Rise time: usually immediate Respiratory: Snoring: yes, loud Observed Apneas: yes Mouth Breathing: not sure Dry Mouth: not usually; has noticed drooling Nocturnal Gasping: denies Nasal Obstruction: denies Daytime Symptoms: Patient-reported scores: [facility] 06/16/2019 [facility] 5 Insomnia Severity Index 15 (Moderately severe insomnia) Upon Awakening: variable Naps: after infusions or if does more activity, but otherwise doesn't regularly nap Involuntary Dozing: couple times a week Driving: denies Close calls related to sleepiness denies Accidents related to sleepiness denies Other Associates Sleep Symptoms: Parasomnias: Sleep Walking: no Dream Enactment: no Motor: RLS: no PLMS: no Family History: Family history of sleep disorders: parents snored ROS: CON: weight change: had last 60# in 2009 when got myopathy but has gained weight over time and is now 20# heavier than then - now at highest weight ENT: nasal obstruction: no PUL: CALDERON: yes CV: chest pain: no Palpitations: occ; not nocturnal LE edema: no GI: GERD: occasional; recently has woken him : Nocturia: 2-3x MSK: Pain: back pain NEURO: sleep related headaches: once a month ALL: no PSY: Depression, anxiety: denies Past Medical History: Patient Active Problem List Diagnosis Code ??? [...] kidney disease) stage 3, GFR 30-59 ml/min N18.3 ??? Anemia, iron deficiency D50.9 Medications: Outpatient Medications Marked as Taking for the 06/22/19 encounter (Office Visit) with Damaris Daniel MD Medication Sig Dispense Refill ??? allopurinol (ZYLOPRIM) 100 mg Tablet Take 1 tablet by mouth daily. 90 tablet 1 ??? epoetin matt (PROCRIT INJ) Inject 10,000 Units as directed every 14 days. ??? metoprolol succinate (TOPROL-XL) 50 mg Tablet Sustained Release 24 hr Take 50 mg by mouth daily. ??? colchicine (COLCRYS) 0.6 mg Tablet Take 0.6 mg by mouth daily. Per direction for acuet gout attack ??? glipiZIDE (GLUCOTROL XL) 10 mg Tablet Extended Rel 24 hr Take 10 mg by mouth daily. ??? allopurinol (ZYLOPRIM) 300 mg Tablet Take 300 mg by mouth daily. ??? HUMALOG KWIKPEN 100 unit/mL Insulin Pen INJECT 40 UNITS SUBCUTANEOUSLY BEFORE MEALS 3 ??? BlueRoadsTOUCH ULTRA TEST Strip TEST DIRECTED THREE TIMES A DAY DIRECTED 3 ??? IMMUNE GLOBULIN,GAMMA,IGG, (IMMUNE GLOBULIN, HUMAN,, IGG, IV) 1,200 mg intravenously twice monthly. ??? UNABLE TO FIND Solumedrol IV with IVIG infusions, once monthly (one bag, one mL). ??? terazosin (HYTRIN) 5 mg Capsule Take 1 capsule by mouth nightly. 3 ??? insulin glargine (LANTUS SOLOSTAR) Insulin Pen 35 units subcutaneously every morning, and 60 units subcutaneously nightly. ??? furosemide (LASIX) 20 mg Tablet Take 1 tablet by mouth daily. 30 tablet 12 ??? multivitamin Capsule Take 1 capsule by mouth daily. ??? ondansetron (ZOFRAN) 4 mg tablet Take 1 tablet by mouth as needed. 20 tablet 3 ??? lisinopril-hydrochlorothiazide (PRINZIDE;ZESTORETIC) 20-12.5 mg per tablet Take 2 tablets by mouth daily. 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 General: alert, no distress Eyes: PERRL, conjunctiva clear ENT: oropharynx MP: 3 Crowded: clear Dentition: edentulous Mandibular structure and position: normal NECK: Submental fat present: yes Supple, no LAD, no thyroid enlargement LUNGS: respirations even and unlabored, CTAB CV: RRR, no m/g/r, no c/c, trace LE edema bilat ABD: BS+, soft, NT, not able to palpate liver, spleen SKIN: warm and dry NEURO: walking with cane, no tremor PSYCH: Alert and appropriate: yes Oriented to person, place and time: yes Affect: full range Mood:fine Judgement and insight: intact Assessment: Bucky Acevedo is a 59 y.o. male with a history of loud snoring, observed apneas, disrupted sleep and some daytime sleepiness. He also has a history of DM. The history and symptoms are suspicious forobstructive sleep apnea. The diagnosis of obstructive sleep apnea was reviewed in detail with the patient at this time. Potential consequences of untreated obstructive sleep apnea reviewed, including increased cardiovascular risk. Treatment options reviewed in detail. Patient confirms that study results can be relayed via [facility]. Questions regarding diagnosis and management answered at this time. Recommendations: 1. Overnight PSG (RR for DME) 2. Role of weight loss reviewed 3. Safe driving precautions extensively reviewed with the patient. documented in this encounter Plan of Treatment Upcoming Encounters Date Type Specialty Care Team Description 06/19/2022 Office Visit Rheumatology Richi Blackmon MD [facility] [address] RHEUMATOLOGY [place], [place] [address] (Wo rk) Scheduled Procedures Name Priority Associated Diagnoses Date/Time EGD, UPPER GI ENDOSCOPY Family hx of colon cance r COLONOSCOPY, DIAGNOSTIC Family hx of colon cance r Scheduled Referrals Name Type Priority Associated Diagnoses Order S chedule Referral to Sleep Outpatient Referral Routine Snoring Ord ered: Disorders Center 06/22/2019 documented as of this encounter Visit Diagnoses Diagnosis Snoring Other dyspnea and respiratory abnormalit y Apnea 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
--- OUTSIDE RECORDS SUMMARY | 2022-04-11 10:48 | XMS_ITS | Encounter Summary ---
:1960 Author Organization [facility] [place] [address] Care Team Providers Name Role Phone Jazmine Baer MD Primary Care Provider Encounter Details Date Type Department Care Team Description 04/04/2020 External Results Hematology and [place]cology [place] [address] Social History Tobacco Use Types Packs/Day Years Used Date Never Smoker Smokeless Tobacco: Never Used Alcohol Use Standard Drinks/Week Comments No 0 (1 standard drink = 0.6 oz pure alcoho l) Sex Assigned at Date Recorded Not on file documented as of this encounter Plan of Treatment Upcoming Encounters Date Type Specialty Care Team Description 06/19/2022 Office Visit Rheumatology Richi Blackmon MD [facility] RHEUMATOLOGY [place], [place] [address] (Wo rk) Scheduled Procedures Name Priority Associated Diagnoses Date/Time EGD, UPPER GI ENDOSCOPY Family hx of colon cance r COLONOSCOPY, DIAGNOSTIC Family hx of colon cance r documented as of this encounter Procedures Procedure Name Priority Date/Time Associated Diagnosis Comme nts CREATININE Routine 04/04/2020 8:05 AM Results f or this EDT procedure are i n the results section. IRON AND TIBC Routine 04/04/2020 8:05 AM Results for this EDT procedure are i n the results section. CBC (WITH DIFF) Routine 04/04/2020 8:05 AM Result s for this EDT procedure are i n the results section. documented in this encounter Results Iron and TIBC (04/04/2020 8:05 AM EDT) P athologist Signature Iron 91 65 - 175 EXTERNAL LAB TIBC 287 250 - 450 EXTERNAL LAB Transferrin 32 20 - 55 EXTERNAL LAB Specimen (Source) Anatomical Collection Method Collection Time Re ceived Time Location / / Volume Laterality Blood specimen 04/04/2020 8:05 AM (specimen) EDT Historical Provider CHEMISTRY ORDERABLES Performing Organization Address City/State/ZIP Code Phon e Number EXTERNAL FACILITY EXTERNAL LAB (ABNORMAL) Creatinine (04/04/2020 8:05 AM EDT) Analysis Performed At Patho logist Time Signature Creatinine 1.78 0.70 - EXTERNAL LAB (EXTERNAL/ 1.30 ABN) Estimated GFR 38.92 >=60 EXTERNAL LAB (EXTERNAL/ ABN) Specimen (Source) Anatomical Collection Method Collection Time Re ceived Time Location / / Volume Laterality Blood specimen 04/04/2020 8:05 AM (specimen) EDT Historical Provider CHEMISTRY ORDERABLES Performing Organization Address City/State/ZIP Code Phon e Number EXTERNAL FACILITY EXTERNAL LAB (ABNORMAL) CBC (with Diff) (04/04/2020 8:05 AM EDT) Patholo gist Method Time Signature WBC 4.17 4.4 - 10.8 EXTERNAL LAB (EXTERNAL/ ABN) Hemoglobin 11.2 13.5 - EXTERNAL LAB (EXTERNAL/ 17.5 ABN) Hematocrit 36.2 40.0 - EXTERNAL LAB (EXTERNAL/ 50.0 ABN) Platelets 62 130 - 400 EXTERNAL LAB (EXTERNAL/ ABN) Neutr Abs (ANC) 2.58 1.2 - 6.7 EXTERNAL LAB Lymphocyte Abs 0.71 1.2 - 3.4 EXTERNAL LAB (EXTERNAL/ ABN) Specimen (Source) Anatomical Collection Method Collection Time Re ceived Time Location / / Volume Laterality Blood specimen 04/04/2020 8:05 AM (specimen) EDT Historical Provider HEMATOLOGY ORDERABLES Performing Organization Address City/State/ZIP Code Phon e Number EXTERNAL FACILITY EXTERNAL LAB documented in this encounter Visit Diagnoses Not on filedocumented in this encounter Care Teams Firesetter Relationship Specialty Start Date End Date Jazmine Baer MD PCP - General 11/07/10 [address] [place] [address] documented as of this encounter
--- OUTSIDE RECORDS SUMMARY | 2022-04-11 10:48 | XMS_ITS | Encounter Summary ---
:1960 Author Organization [facility] [place] [address] Care Team Providers Name Role Phone Jazmine Baer MD Primary Care Provider Encounter Details Date Type Department Care Team Description 07/14/2019 Orders Only Hematology and Oncology at Karen Camilo APRN [facility] Hilda shafer HEMATOLOGY/[place] [address] DEPT. [phone] [place], [place] [address] (Wo rk) Social History Tobacco Use Types Packs/Day Years Used Date Never Smoker Smokeless Tobacco: Never Used Alcohol Use Standard Drinks/Week Comments No 0 (1 standard drink = 0.6 oz pure alcoho l) Sex Assigned at Date Recorded Not on file documented as of this encounter Progress Notes Karen Lugo APRN - 07/14/2019 10:45 AM EST Date: 07/14/2019 Patient Name: Bucky Acevedo : 1960 Diagnosis: Iron deficiency anemia, anemia of renal insufficiency Referral to [site]: [facility] Lab orders: ?? CBC, creatinine q2 weeks; iron saturation q4 weeks Infusion Orders: ?? Aranesp 60mcg SQ injection q2 weeks for for Hgb < 12 ?? Venofer 300mg IV every 4 weeks x 6 for iron saturation < 20 Signature: Karen Lugo, MSN, FINISHING RANGE SUPERVISOR beeper # [id number] Co-signature [if needed]: documented in this encounter Plan of Treatment Upcoming Encounters Date Type Specialty Care Team Description 06/19/2022 Office Visit Rheumatology Richi Blackmon MD [facility] DR RHEUMATOLOGY [place], [place] [address] (Wo rk) Scheduled Procedures Name Priority Associated Diagnoses Date/Time EGD, UPPER GI ENDOSCOPY Family hx of colon cance r COLONOSCOPY, DIAGNOSTIC Family hx of colon cance r documented as of this encounter Visit Diagnoses Not on filedocumented in this encounter Care Teams Market Development Analyst Relationship Specialty Start Date End Date Jazmine Baer MD PCP - General 11/07/10 [address] [place] [address] documented as of this encounter
--- OUTSIDE RECORDS SUMMARY | 2022-04-11 10:48 | XMS_ITS | Encounter Summary ---
:1960 Author Organization [facility] [place] [address] Care Team Providers Name Role Phone Jazmine Baer MD Primary Care Provider Encounter Details Date Type Department Care Team Description 06/16/2020 Ancillary Procedure Radiology Library at Adore Ba[place], [place] [facility] [id number] [place] [address] [phone] Social History Tobacco Use Types Packs/Day Years Used Date Never Smoker Smokeless Tobacco: Never Used Alcohol Use Standard Drinks/Week Comments No 0 (1 standard drink = 0.6 oz pure alcoho l) Sex Assigned at Date Recorded Not on file documented as of this encounter Plan of Treatment Upcoming Encounters Date Type Specialty Care Team Description 06/19/2022 Office Visit Rheumatology Richi Blackmon MD [facility] DR RHEUMATOLOGY [place], [place] [address] (Wo rk) Scheduled Procedures Name Priority Associated Diagnoses Date/Time EGD, UPPER GI ENDOSCOPY Family hx of colon cance r COLONOSCOPY, DIAGNOSTIC Family hx of colon cance r documented as of this encounter Procedures Procedure Name Priority Date/Time Associated Diagnosis Comme nts FILM LIBRARY Routine 06/16/2020 12:00 AM Results for this STORAGE ONLY DX EST procedure ar e in SPINE the results section. documented in this encounter Results Film Library- Storage Only DX Spine (06/16/2020 12:00 AM EST) Specimen (Source) Anatomical Location Collection Method / Collectio n Time Received Time / Laterality Volume Narrative RAD - 06/17/2020 8:24 AM EST This exam is auto-finalizing. It's purpo se is for storage only. Jazmine Baer MD IMG FILM LIBRARY ORDERABLES Performing Organization Address City/State/ZIP Code Phon e Number [place], [place] documented in this encounter Visit Diagnoses Not on filedocumented in this encounter Care Teams Thread Winder Automatic Relationship Specialty Start Date End Date Jazmine Baer MD PCP - General 11/07/10 [address] [place] [address] documented as of this encounter
--- OUTSIDE RECORDS SUMMARY | 2022-04-11 10:48 | XMS_ITS | Encounter Summary ---
:1960 Author Organization [facility] [place] [address] Care Team Providers Name Role Phone Jazmine Baer MD Primary Care Provider Encounter Details Date Type Department Care Team Description 03/15/2020 Telephone Gastroenterology at [facility] [place] [address] Social History Tobacco Use Types Packs/Day Years Used Date Never Smoker Smokeless Tobacco: Never Used Alcohol Use Standard Drinks/Week Comments No 0 (1 standard drink = 0.6 oz pure alcoho l) Sex Assigned at Date Recorded Not on file documented as of this encounter Miscellaneous Notes Telephone Encounter - Reyna Wagner - 03/15/2020 11:16 AM EDT Bucky Acevedo [id number] Headley 03/15/2020 Diagnosis/Indication: hepatic cirrhosis, varices screening 1. Have you ever had a/an Upper Endoscopy before? Yes: Date 08/02/2016 If yes, did you have any problems with the procedure? No What type of sedation was used: IV Conscious Sedation 2. Do you take any Blood Thinners? No 3. Do you have a Pacemaker or Defibrillator device? No 4. Are you a diabetic? Yes: Controlled by diet or medication? Medication 5. Do you have any Allergies to Eggs, Latex or Medications? Yes: in chart 6. Do you take any Oral Iron Supplements (Including multi-vitamins)? No 7. Do you have a history of three or more abdominal surgeries? No 8. Have you had a problem with sedation or anesthesia? No 9. Do you have a c-pap machine or oxygen tank? Neither 10. Do you take prescription narcotic pain medications, including suboxone or methodone? No 11. Do you have a preference regarding the gender of your provider? No Preference 12. Is there any other information you would like to give us to aid in scheduling? No 13. Say to patient: You must have a responsible constitution party who will drive you to your procedure, stay on campus for the entire duration of your procedure, and drive you home from your procedure?yes Height: 5.7.28 Weight: 299 BMI: 46 Age:59 y.o. documented in this encounter Plan of Treatment Upcoming Encounters Date Type Specialty Care Team Description 06/19/2022 Office Visit Rheumatology Richi Blackmon MD [facility] [address] RHEUMATOLOGY [place], [place] [address] (Wo rk) Scheduled Procedures Name Priority Associated Diagnoses Date/Time EGD, UPPER GI ENDOSCOPY Family hx of colon cance r COLONOSCOPY, DIAGNOSTIC Family hx of colon cance r documented as of this encounter Visit Diagnoses Not on filedocumented in this encounter Care Teams Tax Professional Relationship Specialty Start Date End Date Jazmine Baer MD PCP - General 11/07/10 [address] [place] [address] documented as of this encounter
--- OUTSIDE RECORDS SUMMARY | 2022-04-11 10:48 | XMS_ITS | Encounter Summary ---
:1960 Author Organization [facility] [place] [address] Care Team Providers Name Role Phone Jazmine Baer MD Primary Care Provider Encounter Details Date Type Department Care Team Description 09/28/2019 Telephone Rheumatology at [facility] [place] [address] Social History Tobacco Use Types Packs/Day Years Used Date Never Smoker Smokeless Tobacco: Never Used Alcohol Use Standard Drinks/Week Comments No 0 (1 standard drink = 0.6 oz pure alcoho l) Sex Assigned at Date Recorded Not on file documented as of this encounter Miscellaneous Notes Telephone Encounter - Adore Galo MA - 09/28/2019 9:03 AM EDT [facility] Front Office Director Pre-Telemedicine Phone Note [x] Patient not reached [] Patient reached and the following information was reviewed/obtained per protocol: [] Confirmed patient name and date of [] Confirmed telemedicine benita (Vidyo and Virtual Visit) is downloaded and functioning [] Confirmed location of patient - TeleVisit is taking place in [] [place] [] [place] [] If not on [facility], working on signing up for [facility] [] Confirmed has completed any pre-visit questionnaires [] If has not received required pre-visit questionnaires, send via [facility] [] Reviewed patient medications [] Documented self-reported vitals: [] Weight: [] Height [] pulse recorded: [x] Other information or concerns Left message documented in this encounter Plan of Treatment Upcoming Encounters Date Type Specialty Care Team Description 06/19/2022 Office Visit Rheumatology Richi Blackmon MD [facility] RHEUMATOLOGY [place], [place] [address] (Wo rk) Scheduled Procedures Name Priority Associated Diagnoses Date/Time EGD, UPPER GI ENDOSCOPY Family hx of colon cance r COLONOSCOPY, DIAGNOSTIC Family hx of colon cance r documented as of this encounter Visit Diagnoses Not on filedocumented in this encounter Care Teams Speech And Language Specialist Relationship Specialty Start Date End Date Jazmine Baer MD PCP - General 11/07/10 [address] [place] [address] documented as of this encounter
--- OUTSIDE RECORDS SUMMARY | 2022-04-11 10:48 | XMS_ITS | Encounter Summary ---
:1960 Author Organization [facility] [place] [address] Care Team Providers Name Role Phone Jazmine Baer MD Primary Care Provider Encounter Details Date Type Department Care Team Description 04/27/2020 External Results Nephrology [place] [address] Social History Tobacco Use Types Packs/Day Years Used Date Never Smoker Smokeless Tobacco: Never Used Alcohol Use Standard Drinks/Week Comments No 0 (1 standard drink = 0.6 oz pure alcoho l) Sex Assigned at Date Recorded Not on file documented as of this encounter Plan of Treatment Upcoming Encounters Date Type Specialty Care Team Description 06/19/2022 Office Visit Rheumatology Richi Blackmon MD [facility] DR RHEUMATOLOGY [place], [place] [address] (Wo rk) Scheduled Procedures Name Priority Associated Diagnoses Date/Time EGD, UPPER GI ENDOSCOPY Family hx of colon cance r COLONOSCOPY, DIAGNOSTIC Family hx of colon cance r documented as of this encounter Procedures Procedure Name Priority Date/Time Associated Diagnosis Comme nts EXTERNAL LAB CBC CMP Routine 04/18/2020 Results for this THYROID RESULTS PANEL proced ure are in the results section . documented in this encounter Results (ABNORMAL) CBC / CMP / Thyroid External Results (04/18/2020) [facility] Time Signature WBC 4.48 (External Lab) RBC 3.56 (External Lab) Hemoglobin 11.2 (External Lab) Hematocrit 36.1 (External Lab) MCV 101.4 (External Lab) Sodium 142 (External Lab) Potassium 4.3 (External Lab) Chloride 109 (External Lab) CO2 25 (External Lab) Creatinine 2.05 (External Lab) Estimated GFR 33.07 (External Lab) Glucose Lvl 133 (External Lab) Calcium 8.3 (External Lab) Phosphorus 3.1 (External Lab) Albumin 3.1 (External Lab) Uric Acid 4.4 (External Lab) Anion Gap 8 (External Lab) U Creatinine 48.01 (External Lab) Specimen (Source) Anatomical Location Collection Method / Collectio n Time Received Time / Laterality Volume 04/18/2020 Historical Provider POINT OF CARE TEST ORDERABLE S documented in this encounter Visit Diagnoses Not on filedocumented in this encounter Care Teams Staff Nuclear Medicine Technologist Relationship Specialty Start Date End Date Jazmine Baer MD PCP - General 11/07/10 [address] [place] [address] documented as of this encounter
--- OUTSIDE RECORDS SUMMARY | 2022-04-11 10:48 | XMS_ITS | Encounter Summary ---
:1960 Author Organization [facility] [place] [address] Care Team Providers Name Role Phone Jazmine Baer MD Primary Care Provider Encounter Details Date Type Department Care Team Description 01/22/2020 Orders Only Rheumatology at [facility] Akash Prieto, Myositis of other [facility] MD site, unspecified Drive [facility] [place] [address] RHEUMATOLOGY DEP [place], [place] [address] Social History Tobacco Use Types [...] 06/19/2022 Office Visit Rheumatology Richi Blackmon MD [facility] ER RHEUMATOLOGY DEP [place], [place] [address] (Wo rk) Scheduled Procedures Name Priority Associated Diagnoses Date/Time EGD, UPPER GI ENDOSCOPY Family hx of colon cance r COLONOSCOPY, DIAGNOSTIC Family hx of colon cance r documented as of this encounter Visit Diagnoses Diagnosis Myositis of other site, unspecified myos itis type documented in this encounter Care Teams Certified Master Locksmith Relationship Specialty Start Date End Date Jazmine Baer MD PCP - General 5/31/11 [address] [place] [address] documented as of this encounter
--- OUTSIDE RECORDS SUMMARY | 2022-04-11 10:48 | XMS_ITS | Encounter Summary ---
:1960 Author Organization [facility] [place] [address] Care Team Providers Name Role Phone Jazmine Baer MD Primary Care Provider Encounter Details Date Type Department Care Team Description 06/22/2019 [facility] [address] [place] [address] [place] [address] [phone] (Wo rk) Social History Tobacco Use Types Packs/Day Years Used Date Never Smoker Smokeless Tobacco: Never Used Alcohol Use Standard Drinks/Week Comments No 0 (1 standard drink = 0.6 oz pure alcoho l) Sex Assigned at Date Recorded Not on file documented as of this encounter Progress Notes Damaris Daniel MD - 06/22/2019 10:58 AM EST Polysomnogram Order Form Room # Technologist Assignment: To be read by on PSG Patient Information Date of study: : 1960 Name: Bucky Acevedo Height: 69in Weight: 288# 59 y.o. male Normal sleep hours: 11-8 Arrival Time: Physical/Mobility Limitations: No Cognitive Limitations: No Requires Male Tech: No Requires Female Tech: No Requires 1:1 Care: No Requires Parent/Caregiver: [place] of Parent/Caregiver staying: Using Home Oxygen: No At home sleeps in: Bed PSG Indications: snoring, apnea, disrupted sleep -- PSG to assess for DEAN Other Medical Conditions: DM, myositis, chronic kidney disease, GERD PSG Orders Type of study: diagnostic PSG -- split for CMS AHI>15 Additional data required: no Special instructions: no *Initiate CPAP/BPAP/oxygen per previously determined protocols unless otherwise specified. documented in this encounter Plan of Treatment Upcoming Encounters Date Type Specialty Care Team Description 06/19/2022 Office Visit Rheumatology Richi Blackmon MD [facility] ER DR RHEUMATOLOGY [place], [place] [address] (Wo rk) Scheduled Procedures Name Priority Associated Diagnoses Date/Time EGD, UPPER GI ENDOSCOPY Family hx of colon cance r COLONOSCOPY, DIAGNOSTIC Family hx of colon cance r documented as of this encounter Visit Diagnoses Not on filedocumented in this encounter Care Teams Strand Forming Machine Operator Relationship Specialty Start Date End Date Jazmine Baer MD PCP - General 11/07/10 [address] [place] [address] documented as of this encounter
--- OUTSIDE RECORDS SUMMARY | 2022-04-11 10:48 | XMS_ITS | Encounter Summary ---
:1960 Author Organization [facility] [place] [address] Care Team Providers Name Role Phone Jazmine Baer MD Primary Care Provider Encounter Details Date Type Department Care Team Description 08/03/2019 External Results Hematology [place] [address] Social History Tobacco Use Types Packs/Day Years Used Date Never Smoker Smokeless Tobacco: Never Used Alcohol Use Standard Drinks/Week Comments No 0 (1 standard drink = 0.6 oz pure alcoho l) Sex Assigned at Date Recorded Not on file documented as of this encounter Plan of Treatment Upcoming Encounters Date Type Specialty Care Team Description 06/19/2022 Office Visit Rheumatology Richi Blackmon MD [facility] RHEUMATOLOGY [place], [place] [address] (Wo rk) Scheduled Procedures Name Priority Associated Diagnoses Date/Time EGD, UPPER GI ENDOSCOPY Family hx of colon cance r COLONOSCOPY, DIAGNOSTIC Family hx of colon cance r documented as of this encounter Procedures Procedure Name Priority Date/Time Associated Diagnosis Comme nts CBC (WITH DIFF) Routine 07/27/2019 7:00 AM Result s for this EST procedure are i n the results section. documented in this encounter Results (ABNORMAL) CBC (with Diff) (07/27/2019 7:00 AM EST) [facility] gist Method Time Signature WBC 4.13 4.4 - 10.8 EXTERNAL LAB (EXTERNAL/ ABN) Hemoglobin 11.5 13.5 - EXTERNAL LAB (EXTERNAL/ 17.5 ABN) Hematocrit 36.8 40.0 - EXTERNAL LAB (EXTERNAL/ 50.0 ABN) Platelets 73 130 - 400 EXTERNAL LAB (EXTERNAL/ ABN) Neutr Abs (ANC) 2.87 1.2 - 6.7 EXTERNAL LAB Lymphocyte Abs 0.58 1.2 - 3.4 EXTERNAL LAB (EXTERNAL/ ABN) Specimen (Source) Anatomical Collection Method Collection Time Re ceived Time Location / / Volume Laterality Blood specimen 07/27/2019 7:00 AM (specimen) EST Historical Provider HEMATOLOGY ORDERABLES Performing Organization Address City/State/ZIP Code Phon e Number EXTERNAL FACILITY EXTERNAL LAB documented in this encounter Visit Diagnoses Not on filedocumented in this encounter Care Teams Airdox Fitter Relationship Specialty Start Date End Date Jazmine Baer MD PCP - General 11/07/10 [address] [place] [address] documented as of this encounter
--- OUTSIDE RECORDS SUMMARY | 2022-04-11 10:48 | XMS_ITS | Encounter Summary ---
:1960 Author Organization [facility] [place] [address] Care Team Providers Name Role Phone Jazmine Baer MD Primary Care Provider Reason for Visit Reason Onset Date Comments Other 10/05/2019 Encounter Details Date Type Department Care Team Description 10/05/2019 Telephone Rheumatology at [facility] [place] [address] Social History Tobacco Use Types Packs/Day Years Used Date Never Smoker Smokeless Tobacco: Never Used Alcohol Use Standard Drinks/Week Comments No 0 (1 standard drink = 0.6 oz pure alcoho l) Sex Assigned at Date Recorded Not on file documented as of this encounter Miscellaneous Notes Telephone Encounter - Anup Jacques RN - 10/05/2019 3:38 PM EDT Sue from [facility] infusion calls. Asks for uric acid order, may draw tomorrow when patient comes in for day 2 ivig. Also states patient states was to have 250 mg of solumedrol, no order received for decrease dose, received 500 mg today. Requests order for 250 mg of solumedrol, appears order completed, will fax updated order. documented in this encounter Plan of Treatment Upcoming Encounters Date Type Specialty Care Team Description 06/19/2022 Office Visit Rheumatology Richi Blackmon MD [facility] DR RHEUMATOLOGY [place], [place] [address] (Wo rk) Scheduled Procedures Name Priority Associated Diagnoses Date/Time EGD, UPPER GI ENDOSCOPY Family hx of colon cance r COLONOSCOPY, DIAGNOSTIC Family hx of colon cance r documented as of this encounter Visit Diagnoses Not on filedocumented in this encounter Care Teams Guest Service Representative Relationship Specialty Start Date End Date Jazmine Baer MD PCP - General 11/07/10 [address] [place] [address] documented as of this encounter
--- OUTSIDE RECORDS SUMMARY | 2022-04-11 10:48 | XMS_ITS | Encounter Summary ---
:1960 Author Organization [facility] [place] [address] Care Team Providers Name Role Phone Jazmine Baer MD Primary Care Provider Encounter Details Date Type Department Care Team Description 12/29/2019 Telephone Gastroenterology at [facility] [place] [address] Social History Tobacco Use Types Packs/Day Years Used Date Never Smoker Smokeless Tobacco: Never Used Alcohol Use Standard Drinks/Week Comments No 0 (1 standard drink = 0.6 oz pure alcoho l) Sex Assigned at Date Recorded Not on file documented as of this encounter Miscellaneous Notes Telephone Encounter - Jessica Wagner - 12/29/2019 9:59 AM EDT Called pt to schedule a follow up with Dr. Headley, with ultrasound and labs prior. Left message with pt's to have pt call office back to schedule. documented in this encounter Plan of Treatment Upcoming Encounters Date Type Specialty Care Team Description 06/19/2022 Office Visit Rheumatology Richi Blackmon MD [facility] DR RHEUMATOLOGY [place], [place] [address] (Wo rk) Scheduled Procedures Name Priority Associated Diagnoses Date/Time EGD, UPPER GI ENDOSCOPY Family hx of colon cance r COLONOSCOPY, DIAGNOSTIC Family hx of colon cance r documented as of this encounter Visit Diagnoses Not on filedocumented in this encounter Care Teams Preparation Room Manager Relationship Specialty Start Date End Date Jazmine Baer MD PCP - General 11/07/10 [address] [place] [address] documented as of this encounter
--- OUTSIDE RECORDS SUMMARY | 2022-04-11 10:48 | XMS_ITS | Encounter Summary ---
:1960 Author Organization [facility] [place] [address] Care Team Providers Name Role Phone Jazmine Baer MD Primary Care Provider Encounter Details Date Type Department Care Team Description 04/18/2020 External Results Nephrology Hypertension [place] [address] Social History Tobacco Use Types Packs/Day Years Used Date Never Smoker Smokeless Tobacco: Never Used Alcohol Use Standard Drinks/Week Comments No 0 (1 standard drink = 0.6 oz pure alcoho l) Sex Assigned at Date Recorded Not on file documented as of this encounter Plan of Treatment Upcoming Encounters Date Type Specialty Care Team Description 06/19/2022 Office Visit Rheumatology Richi Blackmon MD [facility] DR RHEUMATOLOGY [place], [place] [address] (Wo rk) Scheduled Procedures Name [...] / CMP / Thyroid External Results (04/18/2020) P athologist Signature WBC 4.48 (External Lab) RBC 3.56 (External Lab) Hemoglobin 11.2 (External Lab) Hematocrit 36.1 (External Lab) MCV 101.4 (External Lab) Sodium 142 (External Lab) Potassium 4.3 (External Lab) Chloride 109 (External Lab) CO2 25 (External Lab) Creatinine 2.05 (External Lab) Glucose Lvl 133 (External Lab) [...] on filedocumented in this encounter Care Teams Diabetes Clinical Manager Relationship Specialty Start Date End Date Jazmine Baer MD PCP - General 11/07/10 [address] [place] [address] documented as of this encounter
--- OUTSIDE RECORDS SUMMARY | 2022-04-11 10:48 | XMS_ITS | Encounter Summary ---
:1960 Author Organization [facility] [place] [address] Care Team Providers Name Role Phone Jazmine Baer MD Primary Care Provider Encounter Details Date Type Department Care Team Description 08/17/2019 Hospital Encounter Hematology and Bicytop enia; Oncology at [facility] Iron deficiency anemia [place] [address] Social History Tobacco Use Types Packs/Day Years Used Date Never Smoker Smokeless Tobacco: Never Used Alcohol Use Standard Drinks/Week Comments No 0 (1 standard drink = 0.6 oz pure alcoho l) Sex Assigned at Date Recorded Not on file documented as of this encounter Medications at Time of Discharge Medication Sig Dispensed Refills Start Date End Date HUMALOG KWIKPEN 100 20 Units 3 times daily 3 02/2017 unit/mL Insulin Pen (with meals). ONETOUCH ULTRA TEST 1 each by Other route 3 3 Strip times daily. IMMUNE 1,200 mg intravenously 0 GLOBULIN,GAMMA,IGG, twice monthly. (IMMUNE GLOBULIN, HUMAN,, IGG, IV) insulin glargine Inject 40 Units 0 (Lantus) 100 unit/mL subcutaneously nightly. (3 mL) pen furosemide (LASIX) 20 Take 1 tablet by mouth 30 tablet 12 mg TabletIndications: daily. Myopathy multivitamin Capsule Take 1 capsule by mouth 0 daily. allopurinol (ZYLOPRIM) Take 1 tablet by mouth 90 tablet 1 1 04/20/2020 100 mg Tablet daily. epoetin matt (PROCRIT Inject 10,000 Units as 0 02/29/2020 INJ) directed every 14 days. metoprolol succinate Take 50 mg by mouth 0 201705/02/2021 (TOPROL-XL) 50 mg daily. Tablet Sustained Release 24 hr colchicine (COLCRYS) Take 0.6 mg by mouth 0 05/02/2021 0.6 mg Tablet daily. Per direction for acuet gout attack glipiZIDE (GLUCOTROL Take 10 mg by mouth 0 08/24/2020 XL) 10 mg Tablet daily. Extended Rel 24 hr allopurinol (ZYLOPRIM) Take 300 mg by mouth 0 04/20/2020 300 mg daily. TabletIndications: CKD (chronic kidney disease) stage 3, GFR 30-59 ml/min, Anemia of chronic renal failure, stage 3 (moderate) UNABLE TO FIND Solumedrol IV with IVIG 0 04/20/2020 infusions, once monthly (one bag, one mL). terazosin (HYTRIN) 5 Take 1 capsule by mouth 3 05/02/2021 mg Capsule nightly. ondansetron (ZOFRAN) 4 Take 1 tablet by mouth 20 tablet 3 0 06/18/2013 02/29/2020 mg tablet as needed. lisinopril-hydrochloro Take 2 tablets by mouth 0 05/02/2021 thiazide daily. (PRINZIDE;ZESTORETIC) 20-12.5 mg per tablet documented as of this encounter Plan of Treatment Upcoming Encounters Date Type Specialty Care Team Description 06/19/2022 Office Visit Rheumatology Richi Blackmon MD [facility] ER DR RHEUMATOLOGY [place] [id number] (Wo rk) Scheduled Procedures Name Priority Associated Diagnoses Date/Time EGD, UPPER GI ENDOSCOPY Family hx of colon cance r COLONOSCOPY, DIAGNOSTIC Family hx of colon cance r documented as of this encounter Procedures Procedure Name Priority Date/Time Associated Comments Diagnosis HEMOGRAM STAT 08/17/2019 10:11 Bicytopenia Results for this AM EDT procedure are i n the results section. DIFFERENTIAL, STAT 08/17/2019 10:11 Bicytopenia Results fo r this AUTOMATED AM EDT procedure are i n the results section. HC IRON BINDING STAT 08/17/2019 10:11 Iron deficiency Resul ts for this CAPACITY AM EDT anemia due to procedure are in chronic blood loss the resul ts section. HC VENIPUNCTURE STAT 08/17/2019 10:11 Bicytopenia AM EDT HC FERRITIN, SERUM STAT 08/17/2019 10:11 Iron deficiency Re sults for this AM EDT anemia due to procedure are in chronic blood loss the resul ts section. COMPREHENSIVE STAT 08/17/2019 10:11 Bicytopenia Results fo r this METABOLIC PANEL AM EDT procedure ar e in (NON-FASTING) the results section. documented in this encounter Results (ABNORMAL) Differential, Automated (08/17/2019 10:11 AM EDT) [facility] Method Time Signature Neutrophils % 67.8 % [facility] Neutr Abs (ANC) 2.85 1.70 - [facility] 6.10 [facility] x10(3)/[facility] LABORATORY Lymphocytes % 14.3 % [facility] Lymphocytes Abs 0.6 (L) 0.9 - 3.2 [facility] x10(3)/[facility] LABORATORY Monocytes % 10.5 % [facility] Monocyte Abs 0.4 0.3 - 0.9 [facility] x10(3)/[facility] LABORATORY Eosinophils % 6.7 % [facility] Eosinophils Abs 0.3 0.0 - 0.4 [facility] x10(3)/[facility] LABORATORY Basophils % 0.5 % [facility] Basophils Abs 0.0 0.0 - 0.1 [facility] x10(3)/[facility] LABORATORY Immature Gran % 0.20 % [facility] Comment: Immature granulocytes(IG's)percentage an d absolute count will include metamyelocytes, myelocytes, and promyelo cytes. Blood smears from CBCs yielding IG's will be scanned manually for concor dance. If this scan disagrees with the automated IG or if promyelocytes are not ed, a manual differential will be performed. Tamara Gran Abs 0.01 0.00 - 0.04 x10(3)/[facility] Specimen Anatomical Collection Method Collection Time Receive d Time (Source) Location / / Volume Laterality Blood specimen 08/17/2019 10:11 0 (specimen) AM EDT 10:27 AM EDT Resulting Agency Comment Spec In Lab Karen Montejo Brittney VARGAS HEMATOLOGY ORDERABLES Performing Organization Address City/State/[place] [address] (ABNORMAL) Hemogram (08/17/2019 10:11 AM EDT) Analysis Performed At Patho logist Time Signature WBC 4.2 4.0 - 9.5 [facility] x[facility](3[facility] LABORATORY RBC 3.90 (L) 4.58 - [place] 5.54 [facility] x10(6)/[facility] LABORATORY Hemoglobin 12.2 (L) 13.7 - [facility] 16.5 gm/dL [facility] LABORATORY Hematocrit 38.9 (L) 40.5 - [facility] 48.5 % [facility] LABORATORY MCV 99.7 (H) 82.9 - [facility] 93.1 [facility] LABORATORY MCH 31.3 27.5 - [place] 32.1 pg [facility] LABORATORY MCHC 31.4 (L) 32.0 - [facility] 35.7 gm/dL [facility] LABORATORY Platelets 77 (L) 145 - 357 [facility] x10(3)/[facility] LABORATORY RDWSD 57.9 (H) 36.0 - [facility] [place] 45.0 [facility] LABORATORY RDWCV 15.9 (H) 11.4 - [facility] [place] 13.8 % [facility] LABORATORY MPV 11.6 7.6 - 12.9 [facility] nRBC % Auto 0.0 % [facility] nRBC Abs Auto 0.000 0.000 - [facility] 0.000 [facility] x10(3)/[facility] LABORATORY Specimen Anatomical Collection Method Collection Time Receive d Time (Source) Location / / Volume Laterality Blood specimen 08/17/2019 10:11 0 (specimen) AM EDT 10:27 AM EDT Resulting Agency Comment Spec In Lab Karen Nikia Brittney MENTAL HEALTH NURSE PRACTITIONER HEMATOLOGY ORDERABLES Performing Organization Address City/State/Z[place] [address] Iron and TIBC (08/17/2019 10:11 AM EDT) athologist Signature Iron 59 45 - 160 [facility] mcg/dL [facility]ORY TIBC 282 250 - 450 [facility] mcg/dL [facility] Iron Saturation 21 20 - 50 % [facility] Specimen Anatomical Collection Method Collection Time Receive d Time (Source) Location / / Volume Laterality Blood specimen 08/17/2019 10:11 0 (specimen) AM EDT 10:27 AM EDT Resulting Agency Comment Spec In Lab Karen Lugo APRN CHEMISTRY ORDERABLES Performing Organization Address City/State/ZIP Code Phon e Number [address] (ABNORMAL) Ferritin (08/17/2019 10:11 AM EDT) athologist Signature Ferritin 565 (H) 30 - 400 [facility] ng/mL [facility]ATORY Comment: Pediatric reference ranges not verified at [facility], interpret with caution. Reference ranges for females greater kayleigh n 50 years of age approach values for men, i.e., 30-400 ng/mL. Specimen Anatomical Collection Method Collection Time Receive d Time (Source) Location / / Volume Laterality Blood specimen 08/17/2019 10:11 0 (specimen) AM EDT 10:39 AM EDT Resulting Agency Comment Spec In Lab Karen Lugo APRN CHEMISTRY ORDERABLES Performing Organization Address City/State/ZIP [place] [address] (ABNORMAL) Comprehensive metabolic panel (non-fasting) (08/17/2019 10:11 AM EDT) athologist [facility] Glucose Lvl 104 65 - 199 [facility] mg/dL [facility]ORY Comment: Diabetes: >=200 mg/dL plus symp toms BUN 43 (H) 10 - 20 mg/dL [facility] Creatinine 1.41 0.80 - 1.50 mg/dL [facility] Sodium 139 135 - 145 mmol/L [facility] Potassium 4.5 3.5 - 5.0 mmol/L [facility] Comment: Please note: ??Patients with WBC >100,00 0 may have falsely elevated Potassium levels. ??For accurate Potassium quantif ication in these patients send serum separator tube (gold top) for subsequent determinations. ??Contact the Clinical Chemistry Laboratory if there are any qu estions. Chloride 104 98 - 107 mmol/L [facility] CO2 25 22 - 31 mmol/L [facility] Anion Gap 10 5 - 15 mmol/L [facility] Calcium 9.3 8.5 - 10.5 mg/dL [facility] Total Protein 8.6 (H) 6.1 - 8.0 gm/dL [facility] Albumin 3.5 3.2 - 5.2 gm/dL [facility] AST 31 0 - 39 unit/L [facility] ALT 28 0 - 55 unit/L [facility] Alk Phos 107 40 - 130 unit/L [facility] Total Bilirubin 0.6 0.2 - 1.3 mg/dL [facility] Estimated GFR 53 (L) >=60 mL/min/1.73 m?? [facility] Comment: The eGFR was calculated using the CKD-EP I equation. As with all creatinine based estimates of kidney function, eGFR values calculated with the CKD-EPI equation are not accurate in patients wi th acute kidney failure, extremes of body mass or the acutely ill. [email or web address] com/[facility] eGFR 62 >=60 mL/min/1.73 m?? [facility] Comment: The eGFR was calculated using the CKD-EP I equation. As with all creatinine based estimates of kidney function, eGFR values calculated with the CKD-EPI equation are not accurate in patients wi th acute kidney failure, extremes of body mass or the acutely ill. [email or web address] 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
--- OUTSIDE RECORDS SUMMARY | 2022-04-11 10:48 | XMS_ITS | Encounter Summary ---
:1960 Author Organization [facility] [place] [address] Care Team Providers Name Role Phone Jazmine Baer MD Primary Care Provider Reason for Visit Reason Onset Date Comments Labs Only 05/23/2020 Encounter Details Date Type Department Care Team Description 05/23/2020 Telephone Hematology and Oncol ogy at [facility] Princess Major, [place] [address] Social History Tobacco Use Types Packs/Day Years Used Date Never Smoker Smokeless Tobacco: Never Used Alcohol Use Standard Drinks/Week Comments No 0 (1 standard drink = 0.6 oz pure alcoho l) Sex Assigned at Date Recorded Not on file documented as of this encounter Miscellaneous Notes Telephone Encounter - Princess Major RN - 05/23/2020 1:48 PM EST Received lab results??05-16-20 via fax from [facility]. Request sent to Tatiana Vincent to input results into eD and forward to Dr Ignacio and Gloria Grant NP. ?? Labs stable: H/H=11.6/36.7, PLT=69, Cr=1.68.??[facility] is managing anemia. Per note 02-29-20, continue with current POC:??Aranesp 60 mcg SQ injection q2 weeks for for Hgb < 12. ?? RN will continue to track labs [id number], monitor status and coordinate care.?? documented in this encounter Plan of Treatment Upcoming Encounters Date Type Specialty Care Team Description 06/19/2022 Office Visit Rheumatology Richi Blackmon MD [facility] DR RHEUMATOLOGY [place], [place] [address] (Wo rk) Scheduled Procedures Name Priority Associated Diagnoses Date/Time EGD, UPPER GI ENDOSCOPY Family hx of colon cance r COLONOSCOPY, DIAGNOSTIC Family hx of colon cance r documented as of this encounter Visit Diagnoses Not on filedocumented in this encounter Care Teams Black Ash Worker Relationship Specialty Start Date End Date Jazmine Baer MD PCP - General 11/07/10 [address] [place] [address] documented as of this encounter
--- OUTSIDE RECORDS SUMMARY | 2022-04-11 10:48 | XMS_ITS | Encounter Summary ---
:1960 Author Organization [facility] [place] [address] Care Team Providers Name Role Phone Jazmine Baer MD Primary Care Provider Encounter Details Date Type Department Care Team Description 04/20/2020 Telephone Hematology and Oncol ogy at [facility] [place] [address] Social History Tobacco Use Types Packs/Day Years Used Date Never Smoker Smokeless Tobacco: Never Used Alcohol Use Standard Drinks/Week Comments No 0 (1 standard drink = 0.6 oz pure alcoho l) Sex Assigned at Date Recorded Not on file documented as of this encounter Miscellaneous Notes Telephone Encounter - Ellen Henson RN - 04/20/2020 3:08 PM ESTSummary: lab results Received lab results 04/18/20 via fax from [facility]. Request sent to Tatiana Vincent to input results into eD and forward to Dr Ignacio and Gloria Grant NP. ?? Labs stable: H/H=11.2/36.1, PLT=65,BUN 51 Cr=2.05. [facility] is managing anemia. Per note 02-29-20, continue with current POC: Aranesp 60 mcg SQ injection q2 weeks for for Hgb < 12 and Venofer 300mg IV every 4 weeks x 6 for iron saturation <??30. ?? RN will continue to track labs [id number], monitor status and coordinate care. documented in this encounter Plan of Treatment Upcoming Encounters Date Type Specialty Care Team Description 06/19/2022 Office Visit Rheumatology Richi Blackmon MD [facility] ER DR RHEUMATOLOGY [place], [place] [address] (Wo rk) Scheduled Procedures Name Priority Associated Diagnoses Date/Time EGD, UPPER GI ENDOSCOPY Family hx of colon cance r COLONOSCOPY, DIAGNOSTIC Family hx of colon cance r documented as of this encounter Visit Diagnoses Not on filedocumented in this encounter Care Teams Engineer Systems Relationship Specialty Start Date End Date Jazmine Baer MD PCP - General 11/07/10 [address] [place] [address] documented as of this encounter
--- OUTSIDE RECORDS SUMMARY | 2022-04-11 10:48 | XMS_ITS | Encounter Summary ---
:1960 Author Organization [facility] [address] Care Team Providers Name Role Phone Jazmine Baer MD Primary Care Provider Encounter Details Date Type Department Care Team Description 02/23/2020 Orders Only [place] [facility] Rhiannon Headley MD Liver cirrhosis [facility] [place] [place] [place] [address] [place] [address] [place] [address] Social History Tobacco Use Types Packs/Day Years Used Date Never Smoker Smokeless Tobacco: Never Used Alcohol Use Standard Drinks/Week Comments No 0 (1 standard drink = 0.6 oz pure alcoho l) Sex Assigned at Date Recorded Not on file documented as of this encounter Plan of Treatment Upcoming Encounters Date Type Specialty Care Team Description 06/19/2022 Office Visit Rheumatology Richi Blackmon MD [facility] RHEUMATOLOGY [place], [place] [address] (Wo rk) Scheduled Procedures Name Priority Associated Diagnoses Date/Time EGD, UPPER GI ENDOSCOPY Family hx of colon cance r COLONOSCOPY, DIAGNOSTIC Family hx of colon cance r documented as of this encounter Results Prothrombin Time (08/29/2020 10:01 AM EDT) P athologist Signature PT 12.4 9.4 - 12.5 [facility] LABORATORY INR 1.1 [facility] LABORATORY Comment: An INR <2.0 [...] Organization Address City/State/[place] [address] (ABNORMAL) Comprehensive metabolic panel (non-fasting) (08/29/2020 10:01 AM EDT) P athologist Signature Glucose Lvl 155 65 - 199 [facility] mg/dL [facility] LAB[facility]ORY Comment: Diabetes: >=200 mg/dL plus symp toms BUN 47 (H) 10 - 20 mg/dL [facility] LABORATORY Creatinine 1.52 (H) 0.80 - 1.50 mg/dL [facility] LABOR[facility]ORY Sodium 142 135 - 145 mmol/L [facility] Potassium 4.3 3.5 - 5.0 mmol/L [facility] Comment: Please note: ??Patients with WBC >100,00 0 may have falsely elevated Potassium levels. ??For accurate Potassium quantif ication in these patients send serum separator tube (gold top) for subsequent determinations. ??Contact the Clinical Chemistry Laboratory if there are any qu estions. Chloride 108 (H) 98 - 107 mmol/L [facility] LABORATORY CO2 25 22 - 31 mmol/L [facility]ORY Anion Gap 9 5 - 15 mmol/L [facility]ORY Calcium 8.8 8.5 - 10.5 mg/dL [facility] Total Protein 7.6 6.1 - 8.0 gm/dL [facility] Albumin 3.4 3.2 - 5.2 gm/dL [facility] LABORATORY AST 24 0 - 39 unit/L [facility] ALT 13 0 - 55 unit/L [facility] Alk Phos 122 40 - 130 unit/L [facility]ORY Total Bilirubin 0.4 0.2 - 1.3 mg/dL [facility] LABOR[facility]ORY Estimated GFR 48 (L) >=60 mL/min/1.73 m?? [facility] LAB[facility]ORY Comment: This patient? s estimated glomerular [...] Organization Address City/State/[place] [address] documented in this encounter Visit Diagnoses Diagnosis 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 Other chronic nonalcoholic liver disease documented in this encounter Care Teams Painting Worker Relationship Specialty Start Date End Date Jazmine Baer MD PCP - General 11/07/10 [address] [place] [address] documented as of this encounter
--- OUTSIDE RECORDS SUMMARY | 2022-04-11 10:49 | XMS_ITS | Encounter Summary ---
:1960 Author Organization [facility] [place] [address] Care Team Providers Name Role Phone Jazmine Baer MD Primary Care Provider Reason for Visit Reason Onset Date Comments Questions 08/11/2018 Encounter Details Date Type Department Care Team Description 08/11/2018 Telephone Hematology and Oncology at [place] [address] Social History Tobacco Use Types Packs/Day Years Used Date Never Smoker Smokeless Tobacco: Never Used Alcohol Use Standard Drinks/Week Comments No 0 (1 standard drink = 0.6 oz pure alcoho l) Sex Assigned at Date Recorded Not on file documented as of this encounter Miscellaneous Notes Telephone Encounter - Jessica Santos RN - 08/11/2018 4:21 PM EST Images from the original note were not included. RN received the following message from clinical private secretary: [facility] INFUSION ROOM CALLED Received: Today Message Contents Karen Potts Hem Onc Triage Hematology ?? They need to know if this patient needs to continue with q 2 week labs at [facility]. ??If yes, they need a new order faxed to them. ??The other order has . Per Dr Ignacio, patient is coming [place] [facility] [place]. Plan for continuing every 2 week labs and aranesp can RN contacted [facility] infusion at [phone] and spoke with Karie. She is aware of above plan. documented in this encounter Plan of Treatment Upcoming Encounters Date Type Specialty Care Team Description 06/19/2022 Office Visit Rheumatology Richi Blackmon MD [facility] ER DR RHEUMATOLOGY [place], [place] [address] (Wo rk) Scheduled Procedures Name Priority Associated Diagnoses Date/Time EGD, UPPER GI ENDOSCOPY Family hx of colon cance r COLONOSCOPY, DIAGNOSTIC Family hx of colon cance r documented as of this encounter Visit Diagnoses Not on filedocumented in this encounter Care Teams Bill Adjuster Relationship Specialty Start Date End Date Jazmine Baer MD PCP - General 11/07/10 [address] [place] [address] documented as of this encounter
--- OUTSIDE RECORDS SUMMARY | 2022-04-11 10:49 | XMS_ITS | Encounter Summary ---
:1960 Author Organization [facility] [place] [address] Care Team Providers Name Role Phone Jazmine Baer MD Primary Care Provider Encounter Details Date Type Department Care Team Description 09/25/2018 Office Visit Rheumatology at [facility] Akash Prieto, Myositis of other site, unsp ecified myositis type; [facility] Chronic kidney disease, unspecified [place] [address] [place] [address] R[address] [place] [id number] Social History Tobacco Use Types Packs/Day Years Used Date Never Smoker Smokeless Tobacco: Never Used Alcohol Use Standard Drinks/Week Comments No 0 (1 standard drink = 0.6 oz pure alcoho l) Sex Assigned at Date Recorded Not on file documented as of this encounter Progress Notes Akash Prieto MD - 09/25/2018 11:00 AM EDT ?? 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 When he walks long distances he uses a cane but he has not been to physical therapy recently Today he saw Dr. joe dawson in endocrinology and his hemoglobin A1c was 5.6 last determination and he wants to start him on a regimen that will help him lose weight His renal insufficiency is relatively stable with a creatinine in the 1.5 range his PTH is elevated at 87 He has mild iron deficiency with a iron saturation of 18% and is getting parenteral iron monthly On exam he is obese Pediatric Vitals 09/25/2018 B/P - Systolic 150 B/P - Diastolic 64 B/P - Location Pulse 70 Respirations Pulse Oximetry Temperature Height to cm. 175.3 cm Height in feet/inches 5' 9 Height in inches 69 in Weight (Turkish) 269 lb Weight (Metric) 122.018 kg BMI 39.72 kg/m2 His weight has not changed in spite of efforts on his part His skin shows seborrheic dermatitis Is strength exam is notable for 5 of 5 in his upper extremities both proximal and distal and 5 out of 5 in his lower extremities distally but proximally he is 4/5 Results for BUCKY BETH ( ) as of 09/25/2018 11:24 Ref. Range 08/18/2018 09:46 WBC Latest Ref Range: 4.0 - 9.5 x10(3)/mcL 4.6 RBC Latest Ref Range: 4.58 - 5.54 x10(6)/mcL 3.50 (L) Hemoglobin Latest Ref Range: 13.7 - 16.5 gm/dL 11.0 (L) Hematocrit Latest Ref Range: 40.5 - 48.5 % 35.2 (L) MCV Latest Ref Range: 82.9 - 93.1 fL 100.6 (H) MCH Latest Ref Range: 27.5 - 32.1 pg 31.4 MCHC Latest Ref Range: 32.0 - 35.7 gm/dL 31.3 (L) RDWSD Latest Ref Range: 36.0 - 45.0 fL 60.2 (H) RDWCV Latest Ref Range: 11.4 - 13.8 % 16.5 (H) Platelets Latest Ref Range: 145 - 357 x10(3)/mcL 81 (L) MPV Latest Ref Range: 7.6 - 12.9 fL 12.3 nRBC % Auto Latest Units: % 0.0 nRBC Abs Auto Latest Ref Range: 0.000 - 0.000 x10(3)/mcL 0.000 Neutr Abs (ANC) Latest Ref Range: 1.70 - 6.10 x10(3)/mcL 3.23 Neutrophils % Latest Units: % 70.2 Immature Gran % Latest Units: % 0.40 Lymphocytes % Latest Units: % 15.7 Monocytes % Latest Units: % 10.0 Eosinophils % Latest Units: % 3.3 Basophils % Latest Units: % 0.4 Tamara Gran Abs Latest Ref Range: 0.00 - 0.04 x10(3)/mcL 0.02 Lymphocytes Abs Latest Ref Range: 0.9 - 3.2 x10(3)/mcL 0.7 (L) Monocyte Abs Latest Ref Range: 0.3 - 0.9 x10(3)/mcL 0.5 Eosinophils Abs Latest Ref Range: 0.0 - 0.4 x10(3)/mcL 0.2 Basophils Abs Latest Ref Range: 0.0 - 0.1 x10(3)/mcL 0.0 Sodium Latest Ref Range: 135 - 145 mmol/L 137 Potassium Latest Ref Range: 3.5 - 5.0 mmol/L 4.2 Chloride Latest Ref Range: 98 - 107 mmol/L 102 CO2 Latest Ref Range: 22 - 31 mmol/L 23 Anion Gap Latest Ref Range: 5 - 15 mmol/L 12 BUN Latest Ref Range: 10 - 20 mg/dL 59 (H) Creatinine Latest Ref Range: 0.80 - 1.50 mg/dL 1.57 (H) eGFR Latest Ref Range: >=60 mL/min/1.73 m?? 47 (L) eGFR Latest Ref Range: >=60 mL/min/1.73 m?? 55 (L) Glucose Lvl Latest Ref Range: 65 - 199 mg/dL 199 Calcium Latest Ref Range: 8.5 - 10.5 mg/dL 9.1 Total Protein Latest Ref Range: 6.1 - 8.0 gm/dL 8.9 (H) Albumin Latest Ref Range: 3.2 - 5.2 gm/dL 3.4 Total Bilirubin Latest Ref Range: 0.2 - 1.3 mg/dL 0.5 Alk Phos Latest Ref Range: 40 - 120 unit/L 135 (H) AST Latest Ref Range: 0 - 39 unit/L 33 ALT Latest Ref Range: 0 - 55 unit/L 41 Ferritin Latest Ref Range: 30 - 400 ng/mL 279 Iron Latest Ref Range: 45 - 160 mcg/dL 62 TIBC Latest Ref Range: 250 - 450 mcg/dL 340 Iron Saturation Latest Ref Range: 20 - 50 % 18 (L) Unfortunately no CK was drawn I made no medication changes but I did repeat his labs today that are pending at the time of this dictation I will follow-up in 6 months documented in this encounter Plan of Treatment Upcoming Encounters Date Type Specialty Care Team Description 06/19/2022 Office Visit Rheumatology Richi Blackmon MD [facility] ER DR RHEUMATOLOGY [place], [place] [address] (Wo rk) Scheduled Orders Name Type Priority Associated Diagnoses Order S chedule CK Lab Routine Myositis of other site, unsp ecified Expected: 09/25/2018, Expires: myositis type 09/25/2019 Scheduled Procedures Name Priority Associated Diagnoses Date/Time EGD, UPPER GI ENDOSCOPY Family hx of colon cance r COLONOSCOPY, DIAGNOSTIC Family hx of colon cance r documented as of this encounter Procedures Procedure Name Priority Date/Time Associated Comments Diagnosis CRP, ACUTE Routine 09/25/2018 12:05 Myositis of other Result s for this INFLAMMATION PM EDT site, unspecified procedure are in myositis type the results section. HEMOGRAM Routine 09/25/2018 12:05 Myositis of other Result s for this PM EDT site, unspecified procedure are in myositis type the results section. DIFFERENTIAL, Routine 09/25/2018 12:05 Myositis of other Resul ts for this AUTOMATED PM EDT site, unspecified procedure are in myositis type the results section. IRON AND TIBC Routine 09/25/2018 12:05 Chronic kidney Results for this PM EDT disease, procedure are i n unspecified CKD the results stage section. Myositis of other site, unspecified myositis type SEDIMENTATION RATE Routine 09/25/2018 12:05 Myositis of other Results for this PM EDT site, unspecified procedure are in myositis type the results section. CBC (WITH DIFF) Routine 09/25/2018 12:05 Myositis of other PM EDT site, unspecified myositis type CK Routine 09/25/2018 12:05 Myositis of other Result s for this PM EDT site, unspecified procedure are in myositis type the results section. COMPREHENSIVE Routine 09/25/2018 12:05 Myositis of other Resul ts for this METABOLIC PANEL PM EDT site, unspecified procedu re are in (NON-FASTING) myositis type the results section. documented in this encounter Results (ABNORMAL) Differential, Automated (09/25/2018 12:05 PM EDT) [facility] Method Time Signature Neutrophils % 57.4 % [facility] Neutr Abs (ANC) 2.13 1.70 - [facility] 6.10 [facility] x10(3)/[facility] LABORATORY Lymphocytes % 19.7 % [facility] Lymphocytes Abs 0.7 (L) 0.9 - 3.2 [facility] x10(3)/[facility] LABORATORY Monocytes % 8.1 % [facility] Monocyte Abs 0.3 0.3 - 0.9 [facility] x10(3)/[facility] LABORATORY Eosinophils % 13.2 % [facility] Eosinophils Abs 0.5 (H) 0.0 - 0.4 [facility] x10(3)/[facility] LABORATORY Basophils % 1.6 % [facility] Basophils Abs 0.1 0.0 - 0.1 [facility] x10(3)/[facility] LABORATORY Immature Gran % 0.00 % [facility] Comment: Immature granulocytes(IG's)percentage an d absolute count will include metamyelocytes, myelocytes, and promyelo cytes. Blood smears from CBCs yielding IG's will be scanned manually for concor dance. If this scan disagrees with the automated IG or if promyelocytes are not ed, a manual differential will be performed. Tamara Gran Abs 0.00 0.00 - 0.04 x10(3)/[facility] Specimen Anatomical Collection Method Collection Time Receive d Time (Source) Location / / Volume Laterality Blood specimen 09/25/2018 12:05 9 (specimen) PM EDT 12:15 PM EDT Resulting Agency Comment Spec In Lab Akash Prieto MD HEMATOLOGY ORDERABLES Performing Organization Address City/State/Z[place] [address] (ABNORMAL) Hemogram (09/25/2018 12:05 PM EDT) Analysis Performed At Patho logist Time Signature WBC 3.7 (L) 4.0 - 9.5 [facility] x10(3)/[facility] LAB[facility]ATORY RBC 3.34 (L) 4.58 - [facility] x10(6)/[facility] LABORATORY Hemoglobin 10.2 (L) 13.7 - [facility] 16.5 gm/dL [facility] Hematocrit 33.2 (L) 40.5 - [facility] 48.5 % [facility] MCV 99.4 (H) 82.9 - [facility] 93.1 [facility] MCH 30.5 27.5 - [facility] 32.1 pg [facility] MCHC 30.7 (L) 32.0 - [facility] 35.7 gm/dL [facility] Platelets 65 (L) 145 - 357 [facility] x10(3)/[facility] LABORATORY RDWSD 58.4 (H) 36.0 - [facility] 45.0 [facility] LABORATORY RDWCV 15.8 (H) 11.4 - [facility] 13.8 % [facility] MPV 12.1 7.6 - 12.9 [facility] LABORATORY nRBC % Auto 0.0 % [facility] nRBC Abs Auto 0.000 0.000 - [facility] 0.000 [facility] x10(3)/[facility] LABORATORY Specimen Anatomical Collection Method Collection Time Receive d Time (Source) Location / / Volume Laterality Blood specimen 09/25/2018 12:05 9 (specimen) PM EDT 12:15 PM EDT Resulting Agency Comment Spec In Lab Akash Prieto MD HEMATOLOGY ORDERABLES Performing Organization Address City/State/ZIP Code Phon e Number [address] CK (09/25/2018 12:05 PM EDT) P athologist Signature CK, Total 84 0 - 200 [facility] unit/L [facility] Specimen Anatomical Collection Method Collection Time Receive d Time (Source) Location / / Volume Laterality Blood specimen 09/25/2018 12:05 9 (specimen) PM EDT 12:15 PM EDT Resulting Agency Comment Spec In Lab Akash Prieto MD CHEMISTRY ORDERABLES Performing Organization Address City/[facility]/ZIP Code Phon e Number [address] Iron and TIBC (09/25/2018 12:05 PM EDT) athologist [facility] Iron 68 45 - 160 [facility] mcg/dL [facility] TIBC 332 250 - 450 [facility] mcg/dL [facility] Iron Saturation 20 20 - 50 % [facility] Specimen Anatomical Collection Method Collection Time Receive d Time (Source) Location / / Volume Laterality Blood specimen 09/25/2018 12:05 9 (specimen) PM EDT 12:15 PM EDT Resulting Agency Comment Spec In Lab Akash Prieto MD CHEMISTRY ORDERABLES Performing Organization Address City/[facility]/[place] [address] (ABNORMAL) CRP, acute inflammation (09/25/2018 12:05 PM EDT) athologist [facility] CRP 7.9 (H) <=4.9 mg/L [facility] Specimen Anatomical Collection Method Collection Time Receive d Time (Source) Location / / Volume Laterality Blood specimen 09/25/2018 12:05 9 (specimen) PM EDT 12:15 PM EDT Resulting Agency Comment Spec In Lab Akash Prieto MD CHEMISTRY ORDERABLES Performing Organization Address City/State/ZIP Code Phon e Number [address] (ABNORMAL) Sedimentation rate (09/25/2018 12:05 PM EDT) athologist Signature Sed Rate 77 (H) 0 - 15 [facility] mm/hr [facility] Specimen Anatomical Collection Method Collection Time Receive d Time (Source) Location / / Volume Laterality Blood specimen 09/25/2018 12:05 9 (specimen) PM EDT 12:15 PM EDT Resulting Agency Comment Spec In Lab Akash Prieto MD HEMATOLOGY ORDERABLES Performing Organization Address City/State/ZIP Code Phon e Number [address] (ABNORMAL) Comprehensive metabolic panel (non-fasting) (09/25/2018 12:05 PM EDT) athologist Signature Glucose Lvl 232 (H) 65 - 199 [facility] mg/dL [facility] Comment: Diabetes: >=200 mg/dL plus symp toms BUN 64 (H) 10 - 20 mg/dL [facility] Creatinine 1.92 (H) 0.80 - 1.50 mg/dL [facility] Sodium 137 135 - 145 mmol/L [facility] Potassium 5.0 3.5 - 5.0 mmol/L [facility] Comment: Please note: ??Patients with WBC >100,00 0 may have falsely elevated Potassium levels. ??For accurate Potassium quantif ication in these patients send serum separator tube (gold top) for subsequent determinations. ??Contact the Clinical Chemistry Laboratory if there are any qu estions. Chloride 104 98 - 107 mmol/L [facility] CO2 22 22 - 31 mmol/L [facility] Anion Gap 11 5 - 15 mmol/L [facility] Calcium 9.2 8.5 - 10.5 mg/dL [facility] Total Protein 8.3 (H) 6.1 - 8.0 gm/dL [facility] Albumin 3.6 3.2 - 5.2 gm/dL [facility] AST 22 0 - 39 unit/L [facility] ALT 20 0 - 55 unit/L [facility] Alk Phos 124 (H) 40 - 120 unit/L [facility] Total Bilirubin 0.3 0.2 - 1.3 mg/dL [facility] Estimated GFR 37 (L) >=60 mL/min/1.73 m?? [facility] Comment: The eGFR was calculated using the CKD-EP I equation. As with all creatinine based estimates of kidney function, eGFR values calculated with the CKD-EPI equation are not accurate in patients wi th acute kidney failure, extremes of body mass or the acutely ill. http://[employer])/[facility] eGFR 43 (L) >=60 mL/min/1.73 m?? [facility] Comment: The eGFR was calculated using the CKD-EP I equation. As with all creatinine based estimates of kidney function, eGFR values calculated with the CKD-EPI equation are not accurate in patients wi th acute kidney failure, extremes of body mass or the acutely ill. http://[employer])/[facility] Specimen Anatomical Collection Method Collection Time Receive d Time (Source) Location / / Volume Laterality Blood specimen 09/25/2018 12:05 9 (specimen) PM EDT 12:15 PM EDT Resulting Agency Comment Spec In Lab Akash Prieto MD CHEMISTRY ORDERABLES Performing Organization Address City/State/Z[place] [address] documented in this encounter Visit Diagnoses Diagnosis Myositis of other site, unspecified myos itis type Chronic kidney disease, unspecified CKD stage documented in this encounter Care Teams Rn Oncology Research Relationship Specialty Start Date End Date Jazmine Baer MD PCP - General 11/07/10 [address] [place] [address] documented as of this encounter
--- OUTSIDE RECORDS SUMMARY | 2022-04-11 10:49 | XMS_ITS | Encounter Summary ---
:1960 Author Organization [facility] [place] [address] Care Team Providers Name Role Phone Jazmine Baer MD Primary Care Provider Encounter Details Date Type Department Care Team Description 08/13/2018 Laboratory Appointment Lab 3L [facility] CKD (chronic kidney [facility] disease) stage 3, GFR [facility] 30-59 ml/ [place] [id number] Social History Tobacco Use Types Packs/Day Years Used Date Never Smoker Smokeless Tobacco: Never Used Alcohol Use Standard Drinks/Week Comments No 0 (1 standard drink = 0.6 oz pure alcoho l) Sex Assigned at Date Recorded Not on file documented as of this encounter Plan of Treatment Upcoming Encounters Date Type Specialty Care Team Description 06/19/2022 Office Visit Rheumatology Richi Blackmon MD [facility] ER DR RHEUMATOLOGY [place], [place] [address] (Wo rk) Scheduled Procedures Name Priority Associated Diagnoses Date/Time EGD, UPPER GI ENDOSCOPY Family hx of colon cance r COLONOSCOPY, DIAGNOSTIC Family hx of colon cance r documented as of this encounter Procedures Procedure Name Priority Date/Time Associated Comments Diagnosis U ALBUMIN/CRE RATIO Routine 08/13/2018 9:00 AM CKD (chronic ki dney Results for this EST disease) stage 3, procedure are in GFR 30-59 ml/min the results section. PTH Routine 08/13/2018 8:13 AM CKD (chronic kidney Re sults for this EST disease) stage 3, procedure are in GFR 30-59 ml/min the results section. HEMOGRAM Routine 08/13/2018 8:13 AM CKD (chronic kidney Re sults for this EST disease) stage 3, procedure are in GFR 30-59 ml/min the results section. DIFFERENTIAL, Routine 08/13/2018 8:13 AM CKD (chronic kidney R esults for this AUTOMATED EST disease) stage 3, procedure are in GFR 30-59 ml/min the results section. CBC (WITH DIFF) Routine 08/13/2018 8:13 AM CKD (chronic kidney EST disease) stage 3, GFR 30-59 ml/min PHOSPHORUS Routine 08/13/2018 8:13 AM CKD (chronic kidney Re sults for this EST disease) stage 3, procedure are in GFR 30-59 ml/min the results section. ALBUMIN LEVEL Routine 08/13/2018 8:13 AM CKD (chronic kidney R esults for this EST disease) stage 3, procedure are in GFR 30-59 ml/min the results section. BASIC METABOLIC Routine 08/13/2018 8:13 AM CKD (chronic kidney Results for this PANEL (NON-FASTING) EST disease) stage 3, pro cedure are in GFR 30-59 ml/min the results section. documented in this encounter Results U Albumin/Cre Ratio (08/13/2018 9:00 AM EST) athologist Signature Alb/Cr Ratio, 14 0 - 29 [facility] Random mcg/mg [facility] LABORATORY Comment: Reference Ranges: <30 mcg/mg: [...] 2, 357? 362 U Albumin Conc, Random 14.4 mg/L [facility] LABORATORY U Creatinine 104 mg/dL [facility] LABORATORY Specimen Anatomical Collection Method Collection Time Receive d Time (Source) Location / / Volume Laterality Urine specimen 08/13/2018 9:00 AM 019 5:11 (specimen) EST PM EST Resulting Agency Comment Spec In Lab Lea Villavicencio MD URINE ORDERABLES Performing Organization Address City/State/ZIP Code [place] [address] (ABNORMAL) Differential, Automated (08/13/2018 8:13 AM EST) [facility] gist Method Time Signature Neutrophils % 80.4 % [facility] LABORATORY Neutr Abs (ANC) 3.15 1.70 - [facility] 6.10 [facility] x10(3)/[facility] LABORATORY Lymphocytes % 7.9 % [facility] LABORATORY Lymphocytes Abs 0.3 (L) 0.9 - 3.2 [facility] x10(3)/[facility] LABORATORY Monocytes % 11.2 % [facility] LABORATORY Monocyte Abs 0.4 0.3 - 0.9 [facility] x10(3)/[facility] LABORATORY Eosinophils % 0.0 % [facility] LABORATORY Eosinophils Abs 0.0 0.0 - 0.4 [facility] x10(3)/[facility] LABORATORY Basophils % 0.0 % [facility] LABORATORY Basophils Abs 0.0 0.0 - 0.1 [facility] x10(3)/[facility] LABORATORY Immature Gran % 0.50 % [facility] LABORATORY Comment: Immature granulocytes(IG's)percentage an d absolute count will include metamyelocytes, myelocytes, and promyelo cytes. Blood smears from CBCs yielding IG's will be scanned manually for concor dance. If this scan disagrees with the automated IG or if promyelocytes are not ed, a manual differential will be performed. Tamara Gran Abs 0.02 0.00 - 0.04 x10(3)/[facility] LABORATORY Specimen Anatomical Collection Method Collection Time Receive d Time (Source) Location / / Volume Laterality Blood specimen 08/13/2018 8:13 AM 019 8:15 (specimen) EST AM EST Resulting Agency Comment Spec In Lab Lea Villvaicencio MD HEMATOLOGY ORDERABLES Performing Organization Address City/State/ZIP Code Phon e Number [address] (ABNORMAL) Hemogram (08/13/2018 8:13 AM EST) Analysis Performed At Patho logist Time Signature WBC 3.9 (L) 4.0 - 9.5 [facility] LABORATORY RBC 3.17 (L) 4.58 - [facility] 5.54 [facility] x10(6)/[facility] LABORATORY Hemoglobin 9.8 (L) 13.7 - [facility] 16.5 gm/dL [facility] LABORATORY Hematocrit 30.8 (L) 40.5 - [facility] 48.5 % [facility] LABORATORY MCV 97.2 (H) 82.9 - [facility] 93.1 [facility] LABORATORY MCH 30.9 27.5 - [facility] 32.1 pg [facility] LABORATORY MCHC 31.8 (L) 32.0 - [facility] 35.7 gm/dL [facility] LABORATORY Platelets 76 (L) 145 - 357 [facility] x10(3)/[facility] LABORATORY RDWSD 56.4 (H) 36.0 - [facility] 45.0 [facility] LABORATORY RDWCV 15.8 (H) 11.4 - [facility] 13.8 % [facility] LABORATORY MPV 12.2 7.6 - 12.9 [facility] LABORATORY nRBC % Auto 0.0 % [facility] LABORATORY nRBC Abs Auto 0.000 0.000 - [facility] x10(3)/[facility] LABORATORY Specimen Anatomical Collection Method Collection Time Receive d Time (Source) Location / / Volume Laterality Blood specimen 08/13/2018 8:13 AM 019 8:15 (specimen) EST AM EST Resulting Agency Comment Spec In Lab Lea Villavicencio MD HEMATOLOGY ORDERABLES Performing Organization Address City/State/[place] [address] (ABNORMAL) Basic Metabolic Panel (non-fasting) (08/13/2018 8:13 AM EST) P athologist Signature Glucose Lvl 394 (H) 65 - 199 [facility] mg/dL [facility] LABORATORY Comment: Diabetes: >=200 mg/dL plus symp toms BUN 75 (H) 10 - 20 mg/dL [facility] LABORATORY Creatinine 1.91 (H) 0.80 - 1.50 mg/dL [facility] LABORATORY Sodium 135 135 - 145 mmol/L [facility] LABORATORY Potassium 4.0 3.5 - 5.0 mmol/L [facility] LABORATORY Comment: Please note: ??Patients with WBC >100,00 0 may have falsely elevated Potassium levels. ??For accurate Potassium quantif ication in these patients send serum separator tube (gold top) for subsequent determinations. ??Contact the Clinical Chemistry Laboratory if there are any qu estions. Chloride 103 98 - 107 mmol/L [facility] LABORATORY CO2 19 (L) 22 - 31 mmol/L [facility] LABORATORY Anion Gap 13 5 - 15 mmol/L [facility] LABORATORY Calcium 8.4 (L) 8.5 - 10.5 mg/dL [facility] LABORATORY Estimated GFR 37 (L) >=60 mL/min/1.73 m?? [facility] LABORATORY Comment: The eGFR was calculated using the CKD-EP I equation. As with all creatinine based estimates of kidney function, eGFR values calculated with the CKD-EPI equation are not accurate in patients wi th acute kidney failure, extremes of body mass or the acutely ill. http://[employer]/[facility] eGFR 43 (L) >=60 mL/min/1.73 m?? [facility] LABORATORY Comment: The eGFR was calculated using the CKD-EP I equation. As with all creatinine based estimates of kidney function, eGFR values calculated with the CKD-EPI equation are not accurate in patients wi th acute kidney failure, extremes of body mass or the acutely ill. http://[employer]/[facility] Specimen Anatomical Collection Method Collection Time Receive d Time (Source) Location / / Volume Laterality Blood specimen 08/13/2018 8:13 AM 019 8:15 (specimen) EST AM EST Resulting Agency Comment Spec In Lab Lea Villavicencio MD CHEMISTRY ORDERABLES Performing Organization Address City/[facility]/[place] [address] Phosphorus (08/13/2018 8:13 AM EST) P athologist Signature Phosphorus 3.2 2.5 - 4.5 [facility] mg/dL [facility] LABORATORY Specimen Anatomical Collection Method Collection Time Receive d Time (Source) Location / / Volume Laterality Blood specimen 08/13/2018 8:13 AM 019 8:15 (specimen) EST AM EST Resulting Agency Comment Spec In Lab Lea Villavicencio MD CHEMISTRY ORDERABLES Performing Organization Address City/[facility] [place] [address] Albumin Level (08/13/2018 8:13 AM EST) P athologist Signature Albumin 3.3 3.2 - 5.2 [facility] gm/dL [facility] LABORATORY Specimen Anatomical Collection Method Collection Time Receive d Time (Source) Location / / Volume Laterality Blood specimen 08/13/2018 8:13 AM 019 8:15 (specimen) EST AM EST Resulting Agency Comment Spec In Lab Lea Villavicencio MD CHEMISTRY ORDERABLES Performing Organization Address City/[facility]/[place] [address] (ABNORMAL) PTH (08/13/2018 8:13 AM EST) P athologist Signature PTH 89 (H) 15 - 65 [facility] pg/mL [facility] LABORATORY Specimen Anatomical Collection Method Collection Time Receive d Time (Source) Location / / Volume Laterality Blood specimen 08/13/2018 8:13 AM 019 8:15 (specimen) EST AM EST Resulting Agency Comment Spec In Lab Lea Villavicencio MD CHEMISTRY ORDERABLES Performing Organization Address City/[facility] Code [place] [address] documented in this encounter Visit Diagnoses Diagnosis CKD (chronic kidney disease) stage 3, GF R 30-59 ml/min Chronic kidney disease, Stage III (moder ate) documented in this encounter Care Teams Lacing Cutter Relationship Specialty Start Date End Date Jazmine Baer MD PCP - General 11/07/10 [address] [place] [address] documented as of this encounter
--- OUTSIDE RECORDS SUMMARY | 2022-04-11 10:49 | XMS_ITS | Encounter Summary ---
:1960 Author Organization [facility] Address [facility] [place] [address] Care Team Providers Name Role Phone Jazmine Baer MD Primary Care Provider Encounter Details Date Type Department Care Team Description 05/26/2018 Office Visit Endocrinology at [facility] Enedina Bassett Type 2 diabetes [facility] DOUGLAS Montejo mellitus with Drive [facility], [place] [address] long-term current use [phone] [place] [address] of insulin Social History Tobacco Use Types Packs/Day Years Used Date Never Smoker Smokeless Tobacco: Never Used Alcohol Use Standard Drinks/Week Comments No 0 (1 standard drink = 0.6 oz pure alcoho l) Sex Assigned at Date Recorded Not on file documented as of this encounter Patient Instructions Patient InstructionsEnedina Duffy LD - 05/26/2018 11:00 AM EST Thank you Bucky for the wonderful job taking notes on your food, insulin and bgs! This is very helpful. I will give your reports to your Child Development Director. My main recommendation would be to decrease the amount of soda slowly until you can just have water most of the time. Soda is a sometimes food and should be avoided on most occasions. If you plan to drink soda, maybe drink it at dinner time rather than starting your day off with soda at breakfast. You do a great job counting carbs. The recommendation is 45-60g carb per meal Is it possible to cook 2 meals per day and go out 1x per day? The majority of people get a lot of carbs, sodium, calories and fat from going out to eat and packaged processed foods. If you slowly decrease going out to eat, your carbs would naturally be less and you may see improvement in diabetes management and symptoms. All options to consider. The goal is to start small with goals that you feel you can accomplish and to slowly add more on so it doesn't feel overwhelming. Thank you again! Enedina Duffy documented in this encounter Progress Notes Enedina Duffy LD - 05/26/2018 11:00 AM EST Images from the original note were not included. [facility] Diagnostic Download Bucky Acevedo is a 58 y.o. male with T2DM here today to return his [facility] diagnostic cgm and logbook. Pt filled out the logbook completely with information that is very helpful. He had his Solumedrol treatment on 05/20 and ivig on 05/20. Pt also had IVIG on 05/21/18. Pt has a diet that needs improvement. Today we discussed how the goal is to aim for 45-60g carb per meal. Thanked pt for taking the time to honestly write down his diet and count carbs. Pt is eating over 100 sometimes 200 carbs at meal times. Day 1 Egg mcmuffin with sausage cheese and coke 10 piece nuggets with small frie, small soda, apple pie 1/2 cup ice cream Day 2 3 slices toast, 12 oz chocolate milk 8oz water 2 hotdogs with bread 16oz soda with chips 20 oz water 1 cup ice cream 2 hot dogs and soda with wheat thins 20oz water Day 3 3 slice toast 3 bisquits, chicken and wheat thins, ice cream 2 hot dogs no roll soda 20oz water Day 4 2 slices toast, 16oz soda, 20oz water 2 bologna sandwiches with wheat bread, chips, ice cream, 20 oz water 2 slices meat pie and 16 oz soda 20oz water Day 5 3 slices wheat toast 16oz soda 2 bologna sandiwches on wheat 8oz soda 20oz water ice cream Ugandan fries soda 16oz Day 6 8oz soda Fried rice, chicken fingers, crab rangoon 12oz soda Day 7 Sausage egg mcmuffin and water Whopper with 8oz soda 1 1/2 slices toast wheat with gingerale Day 8 No breakfast fench fried and finish machine tender 2 slices toast with wheat thins chicken tenders and soda The rest of his diet is exactly the same. Large portions of soda, water, ice cream and mostly goes to fast food restaurants to eat. Discussed with pt limiting amt of soda- this was a hard conversation. Pt was only here for a short time for a drop off of his device so soda was what we addressed and the carbs / meal target of 45-60g carb/meal. Recent Labs 10/30/17 1315 HA1C 10.1* documented in this encounter Plan of Treatment Upcoming Encounters Date Type Specialty Care Team Description 06/19/2022 Office Visit Rheumatology Richi Blackmon MD [facility] MEDICAL [facility] DR RHEUMATOLOGY [place], [place] [address] (Wo rk) Scheduled Procedures Name Priority Associated Diagnoses Date/Time EGD, UPPER GI ENDOSCOPY Family hx of colon cance r COLONOSCOPY, DIAGNOSTIC Family hx of colon cance r documented as of this encounter Visit Diagnoses Diagnosis Type 2 diabetes mellitus with hyperglyce nupur, with long-term current use of insulin documented in this encounter Care Teams Rotor Blade Installer Relationship Specialty Start Date End Date Jazmine Baer MD PCP - General 11/07/10 [address] [place] [address] documented as of this encounter
--- OUTSIDE RECORDS SUMMARY | 2022-04-11 10:49 | XMS_ITS | Encounter Summary ---
:1960 Author Organization [facility] [place] [address] Care Team Providers Name Role Phone Jazmine Baer MD Primary Care Provider Encounter Details Date Type Department Care Team Description 08/06/2018 Orders Only Nephrology Hypertension Sofi, CKD (chronic kidney at [facility] [place] disease) stage 3, GFR [facility] D rive 30-59 ml/[place] [address] Social History Tobacco Use Types Packs/Day [...] Visit Rheumatology Richi Blackmon MD [facility] DR RHEUMATOLOGY [place], [place] [address] (Wo rk) Scheduled Procedures Name Priority Associated Diagnoses Date/Time EGD, UPPER GI ENDOSCOPY Family hx of colon cance r COLONOSCOPY, DIAGNOSTIC Family hx of colon cance r documented as of this encounter Results U Albumin/Cre Ratio (08/13/2018 9:00 AM EST) athologist Signature Alb/Cr Ratio, 14 0 - 29 [facility] Random mcg/mg Cr [facility] LABORATORY Comment: Reference Ranges: <30 mcg/mg: Normal [...] 362 U Albumin Conc, Random 14.4 mg/L [facility] LABORATORY U Creatinine 104 mg/dL [facility] LABORATORY Specimen Anatomical Collection Method Collection Time Receive d Time (Source) Location / / Volume Laterality Urine specimen 08/13/2018 9:00 AM 019 5:11 (specimen) EST PM EST Resulting Agency Comment Spec In Lab Lea Villavicencio MD URINE ORDERABLES Performing Organization Address City/[facility]/[place] [address] (ABNORMAL) PTH (08/13/2018 8:13 AM EST) P athologist Signature PTH 89 (H) 15 - 65 [facility] pg/mL [facility] LABORATORY Specimen Anatomical Collection Method Collection Time Receive d Time (Source) Location / / Volume Laterality Blood specimen 08/13/2018 8:13 AM 019 8:15 (specimen) EST AM EST Resulting Agency Comment Spec In Lab Lea Villavicencio MD CHEMISTRY ORDERABLES Performing Organization Address City/[facility]/[place] [address] Albumin Level (08/13/2018 8:13 AM EST) P athologist Signature Albumin 3.3 3.2 - 5.2 [facility] g[facility]/dL [facility] LABORATORY Specimen Anatomical Collection Method Collection Time Receive d Time (Source) Location / / Volume Laterality Blood specimen 08/13/2018 8:13 AM 019 8:15 (specimen) EST AM EST Resulting Agency Comment Spec In Lab Lea Villavicencio MD CHEMISTRY ORDERABLES Performing Organization Address City/State/ZIP Code Phon e Number [address] Phosphorus (08/13/2018 8:13 AM EST) P athologist Signature Phosphorus 3.2 2.5 - 4.5 [facility] mg/dL [facility] LABORATORY Specimen Anatomical Collection Method Collection Time Receive d Time (Source) Location / / Volume Laterality Blood specimen 08/13/2018 8:13 AM 019 8:15 (specimen) EST AM EST Resulting Agency Comment Spec In Lab Lea Villavicencio MD CHEMISTRY ORDERABLES Performing Organization Address City/[facility]/ZIP Code Phon e Number [address] (ABNORMAL) Basic Metabolic Panel (non-fasting) (08/13/2018 8:13 AM EST) athologist Signature Glucose Lvl 394 (H) 65 - 199 [facility] mg/dL [facility] LABORATORY Comment: Diabetes: >=200 mg/dL plus symp toms BUN 75 (H) 10 - 20 mg/dL [facility] LABORATORY Creatinine 1.91 (H) 0.80 - 1.50 mg/dL [facility] LABORATORY Sodium 135 135 - 145 mmol/L [facility] LABORATORY Potassium 4.0 3.5 - 5.0 mmol/L [facility] LABORATORY Comment: Please note: ??Patients with WBC >100,00 0 may have falsely elevated Potassium levels. ??For accurate Potassium quantif ication in these patients send serum separator tube (gold top) for subsequent determinations. ??Contact the Clinical Chemistry Laboratory if there are any qu estions. Chloride 103 98 - 107 mmol/L [facility] LABORATORY CO2 19 (L) 22 - 31 mmol/L [facility] LABORATORY Anion Gap 13 5 - 15 mmol/L [facility] LABORATORY Calcium 8.4 (L) 8.5 - 10.5 mg/dL [facility] LABORATORY Estimated GFR 37 (L) >=60 mL/min/1.73 m?? [facility] LABORATORY Comment: The eGFR was calculated using the CKD-EP I equation. As with all creatinine based estimates of kidney function, eGFR values calculated with the CKD-EPI equation are not accurate in patients wi th acute kidney failure, extremes of body mass or the acutely ill. http://[employer] eGFR 43 (L) >=60 mL/min/1.73 m?? [facility] LABORATORY Comment: The eGFR was calculated using the CKD-EP I equation. As with all creatinine based estimates of kidney function, eGFR values calculated with the CKD-EPI equation are not accurate in patients wi th acute kidney failure, extremes of body mass or the acutely ill. http://[employer] Specimen Anatomical Collection Method Collection Time Receive d Time (Source) Location / / Volume Laterality Blood specimen 08/13/2018 8:13 AM 019 8:15 (specimen) EST AM EST Resulting Agency Comment Spec In Lab Lea Villavicencio MD CHEMISTRY ORDERABLES Performing Organization Address City/State/[place] [address] documented in this encounter Visit Diagnoses Diagnosis CKD (chronic kidney disease) stage 3, GF R 30-59 ml/min Chronic kidney disease, Stage III (moder ate) documented in this encounter Care Teams Content Developer Relationship Specialty Start Date End Date Jazmine Baer MD PCP - General 11/07/10 [address] [place] [address] documented as of this encounter
--- OUTSIDE RECORDS SUMMARY | 2022-04-11 10:49 | XMS_ITS | Encounter Summary ---
:1960 Author Organization [facility] [place] [address] Care Team Providers Name Role Phone Jazmine Baer MD Primary Care Provider Encounter Details Date Type Department Care Team Description 01/23/2019 Telephone Rheumatology at [facility] [place] [address] Social History Tobacco Use Types Packs/Day Years Used Date Never Smoker Smokeless Tobacco: Never Used Alcohol Use Standard Drinks/Week Comments No 0 (1 standard drink = 0.6 oz pure alcoho l) Sex Assigned at Date Recorded Not on file documented as of this encounter Miscellaneous Notes Telephone Encounter - Shanthi Pham RN - 01/23/2019 11:11 AM EDT Call received from Karie at [facility] asking for Monthly CK orders. Discussed with Dr. Prieto and he advises to order monthly CK for Bucky. Placed order and have faxed to [phone] documented in this encounter Plan of Treatment Upcoming Encounters Date Type Specialty Care Team Description 06/19/2022 Office Visit Rheumatology Richi Blackmon MD [facility] DR RHEUMATOLOGY [place], [place] [address] (Wo rk) Scheduled Procedures Name Priority Associated Diagnoses Date/Time EGD, UPPER GI ENDOSCOPY Family hx of colon cance r COLONOSCOPY, DIAGNOSTIC Family hx of colon cance r documented as of this encounter Visit Diagnoses Diagnosis Myositis of other site, unspecified myos itis type - Primary documented in this encounter Care Teams Clearing Distribution Clerk Relationship Specialty Start Date End Date Jazmine Baer MD PCP - General 11/07/10 [address] [place] [address] documented as of this encounter
--- OUTSIDE RECORDS SUMMARY | 2022-04-11 10:49 | XMS_ITS | Encounter Summary ---
:1960 Author Organization [facility] [place] [place] [address] Care Team Providers Name Role Phone Jazmine Baer MD Primary Care Provider Reason for Visit Reason Onset Date Comments Other 05/19/2019 Encounter Details Date Type Department Care Team Description 05/19/2019 Telephone Rheumatology at [facility] [place] [address] Social History Tobacco Use Types Packs/Day Years Used Date Never Smoker Smokeless Tobacco: Never Used Alcohol Use Standard Drinks/Week Comments No 0 (1 standard drink = 0.6 oz pure alcoho l) Sex Assigned at Date Recorded Not on file documented as of this encounter Miscellaneous Notes Telephone Encounter - Anup Jacques RN - 05/20/2019 9:05 AM EST Orders faxed. Telephone Encounter - Anup Jacques RN - 05/19/2019 2:24 PM EST Current IVIG (privagen) orders 06/05. Infusion suite at [facility] request new orders [phone]. documented in this encounter Plan of Treatment Upcoming Encounters Date Type Specialty Care Team Description 06/19/2022 Office Visit Rheumatology Richi Blackmon MD [facility] DR RHEUMATOLOGY DEP [place], [place] [address] (Wo rk) Scheduled Procedures Name Priority Associated Diagnoses Date/Time EGD, UPPER GI ENDOSCOPY Family hx of colon cance r COLONOSCOPY, DIAGNOSTIC Family hx of colon cance r documented as of this encounter Visit Diagnoses Not on filedocumented in this encounter Care Teams Ui Application Developer Relationship Specialty Start Date End Date Jazmine Baer MD PCP - General 11/07/10 [address] [place] [address] documented as of this encounter
--- OUTSIDE RECORDS SUMMARY | 2022-04-11 10:49 | XMS_ITS | Encounter Summary ---
:1960 Author Organization [facility] [place] [address] Care Team Providers Name Role Phone Jazmine Baer MD Primary Care Provider Encounter Details Date Type Department Care Team Description 09/16/2018 Orders Only Hematology and Oncology at [facility] Karen arevalo APRN [facility] Hilda shafer HEMATOLOGY/[place] [address] DEPT. [phone] [place], [place] [address] (Wo rk) Social History Tobacco [...] MD [facility] ER RHEUMATOLOGY DEP T [place], [place] [address] (Wo rk) Scheduled Procedures Name Priority Associated Diagnoses Date/Time EGD, UPPER GI ENDOSCOPY Family hx of colon cance r COLONOSCOPY, DIAGNOSTIC Family hx of colon cance r documented as of this encounter Visit Diagnoses Not on filedocumented in this encounter Care Teams Vice President Supply Chain Relationship Specialty Start Date End Date Jazmine Baer MD PCP - General 11/07/10 [address] [place], [place] [address] documented as of this encounter
--- OUTSIDE RECORDS SUMMARY | 2022-04-11 10:49 | XMS_ITS | Encounter Summary ---
:1960 Author Organization [facility] [place] [address] Care Team Providers Name Role Phone Jazmine Baer MD Primary Care Provider Encounter Details Date Type Department Care Team Description 08/13/2018 Office Visit Nephrology Hypertension Lea Villavicencio MD [facility] 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, A None disease) stage 4, GFR [facility] 15-29 ml/ [place] [address] Social History Tobacco Use Types Packs/Day Years Used Date Never Smoker Smokeless Tobacco: Never Used Alcohol Use Standard Drinks/Week Comments No 0 (1 standard drink = 0.6 oz pure alcoho l) Sex Assigned at Date Recorded Not on file documented as of this encounter Last Filed Vital Signs Vital Sign Reading Time Taken Comments Blood Pressure 144/70 08/13/2018 9:32 AM EST Pulse 66 08/13/2018 9:32 AM EST Temperature - - Respiratory Rate - - Oxygen Saturation - - Inhaled Oxygen Concentration - - Weight 124.7 kg (275 lb) 08/13/2018 9:32 AM EST Height 175.3 cm (5' 9) 08/13/2018 9:32 AM EST Body Mass Index 40.61 08/13/2018 9:32 AM EST documented in this encounter Progress Notes Lea Villavicencio MD - 08/13/2018 9:20 AM EST [facility] [address] [place] [address] Reason for Clinic Visit: Systems Review and CKD management. 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 History of Present Illness: Stable stage 3b A1 CKD. No uremic signs or symptoms as detailed below. History obtained by RN Specialist: Last seen in clinic on 12/25/17, eGFR - 37. He receives IVIG infusions every 4 weeks for 2 days, and Procrit 10,000 u, every two weeks per Dr Ignacio. He received a dose yesterday and also receives iron infusions monthly. Mediport in the right chest. Had gout flare once in May in the foot and needed to take colchicine for a few days. He states he has been well since last visit. Fell snowblowing but able to get up ok. Review of Systems:?Sign/Symptom ?Comments ?? Energy??level/fatigue: Yes - Varies day to day. Most days out and about doing things but gets tired and legs fatigue easily, tired after infusion. Goes to PT, using cane today, walking on treadmill, 3.5 min a time, tries to get to 6 min. Snowblowing 2.5 hrs, seldom napping. 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 Change in sleep patterns: Yes - 4-5 hrs per night, doesn't sleep well. Nocturia: Yes - 2 - 3 x. Appetite changes: Yes - doesn't feel like eating, but eating the wrong foods. Not hungry in mornings. He restricts sugar for diabetes. He doesn't cook with salt. Food aversions: Yes - Doesn't prefer red meat any more - picky eater at baseline Nausea: No - only needed Zofran once in last 45 days. Might have a week where he needs it. Vomiting: No Bowels: No - diarrhea or constipation. Edema: Yes - some today but states he just received infusions. Shortness of breath: Yes - with walking longer distances. Orthopnea/PND: No PND; 1-2 pillows Muscle Cramping: No - fingers, when doesn't drinking enough water, (drinks soda - regular coke, willtry to avoid.) Cold intolerance: No - feeling hot, but gets chills at 4 pm. Itching: Yes - some in lower legs, back. Suggested gold polo, some neuropathic pain. Bruising/bleeding: No - bruising, no nose bleeds, no black stools. Mental Status Changes: No change Recent Home Blood Pressure Control: 122/60. Recent Home Diabetic Management: Decreased lantus dose, 110-120 in am, checks 3 x daily, 220 at night. Last [id number].?? Recent Lipid Management: allergic to statins. ?? Advance Directives: not interested ?? How has your health been in the last 4 weeks???Poor, Fair, Good, Very Good, Excellent. ?? Additional CCM Comments: Social Determinant Date/Comments Food Security/ Nutritional Education Low salt diet Stable Housing/ Safety Concerns Community Supports/ Transportation issues/ Appointment coordination Functional Status/ Assistive devices None Learning Style/Considerations Engagement/Readiness to learn or change Financial/Insurance concerns Employment status He has [employer] for charges above Medicare payments. Has been able to afford his co-pays for medications. ?? Hepatitis B Status: ?Serum Testing ?Date of Testing ?Results Hep B sAb/Hep B sAg Not tested Vaccination Status: Not discussed. ?? Education: AAKP Phase One Booklet, Options video, Kidney Beginnings, Decision Aid:??none given 12/25 - [facility] Nutrition Counter and Potassium Content of Foods given.?? Anticipated Renal Replacement Therapy Plan: not discussed Transplant evaluation: ??Not discussed ?? Fistula Date/Type of Initial Access/Surgeon:??Not discussed Immunizations Hepatitis B Vaccine, Adult 08/10/2014, 01/27/2014 Influenza Vaccine w/Preservative, Split 04/29/2015, 03/10/2014 Influenza Vaccine, Whole 03/10/2009, 04/23/2006 Pneumococcal Polyvalent [...] ml/min N18.3 ??? Anemia, iron deficiency D50.9 Allergies Allergen Reactions ??? Methotrexate Hives, Itching and Rash ??? Morphine Itching ??? [id number]-Dtr Reductase Inhibitors Myopathy Medications 08/13/18 0932 Medication Sig Taking? epoetin matt (PROCRIT INJ) Inject 10,000 Units as directed every 14 days. Yes omeprazole (PRILOSEC) 20 mg Capsule, Delayed Release(E.C.) Take 20 mg by mouth daily. Yes metoprolol succinate (TOPROL-XL) 50 mg Tablet Sustained Release 24 hr Take 50 mg by mouth daily. Yes colchicine (COLCRYS) 0.6 mg Tablet Take 0.6 mg by mouth daily. Per direction for acuet gout attack Yes glipiZIDE (GLUCOTROL XL) 10 mg Tablet Extended Rel 24 hr Take 10 mg by mouth daily. Yes allopurinol (ZYLOPRIM) 300 mg Tablet Take 300 mg by mouth daily. Yes HUMALOG KWIKPEN 100 unit/mL Insulin Pen INJECT 40 UNITS SUBCUTANEOUSLY BEFORE MEALS Yes GigaomTOUCH ULTRA TEST Strip TEST DIRECTED THREE TIMES A DAY DIRECTED Yes IMMUNE GLOBULIN,GAMMA,IGG, (IMMUNE GLOBULIN, HUMAN,, IGG, IV) 1,200 mg intravenously twice monthly. Yes UNABLE TO FIND Solumedrol IV with IVIG infusions, once monthly (one bag, one mL). Yes terazosin (HYTRIN) 5 mg Capsule Take 1 capsule by mouth nightly. Yes insulin glargine (LANTUS SOLOSTAR) Insulin Pen 35 units subcutaneously every morning, and 60 units subcutaneously nightly. Yes furosemide (LASIX) 20 mg Tablet Take 1 tablet by mouth daily. Yes multivitamin Capsule Take 1 capsule by mouth daily. Yes lisinopril-hydrochlorothiazide (PRINZIDE;ZESTORETIC) 20-12.5 mg per tablet Take 2 tablets by mouth daily. Yes ondansetron (ZOFRAN) 4 mg tablet Take 1 tablet by mouth as needed. Patient not taking: Reported on 08/13/2018 Physical Exam: BP 144/70 (BP Location (NBP): Right arm, Patient Position: Sitting, BP Cuff Sizes: Large Adult (32-43 cm)) Pulse 66 Ht 175.3 cm (5' 9) Wt 124.7 kg (275 lb) BMI 40.61 kg/m?? General appearance Appears plethoric, cushingoid, alert Head Atraumatic Eyes No pallor, no scleral icterus ENT Oropharynx clear. No exudate. Neck No JVD Respiratory CTA bilaterally. No added sounds COR/Vascular RRR No RMG Abdomen Soft, non tender, obese Not examined Skin Intact face, neck, limbs, upper trunk. No rash Neuro Intact. Normal facies, gait. Normal speech and mentation Asterixis None present Extremities No edema L + R to mid kim. No sacral edema Psych Mood is appropriate Labs Results for BUCKY BETH ( ) Ref. Range 04/21/2018 09:51 08/13/2018 08:13 WBC Latest Ref Range: 4.0 - 9.5 x10(3)/mcL 4.1 3.9 (L) RBC Latest Ref Range: 4.58 - 5.54 x10(6)/mcL 3.38 (L) 3.17 (L) Hemoglobin Latest Ref Range: 13.7 - 16.5 gm/dL 10.1 (L) 9.8 (L) Hematocrit Latest Ref Range: 40.5 - 48.5 % 32.4 (L) 30.8 (L) MCV Latest Ref Range: 82.9 - 93.1 fL 95.9 (H) 97.2 (H) MCH Latest Ref Range: 27.5 - 32.1 pg 29.9 30.9 MCHC Latest Ref Range: 32.0 - 35.7 gm/dL 31.2 (L) 31.8 (L) RDWSD Latest Ref Range: 36.0 - 45.0 fL 59.7 (H) 56.4 (H) RDWCV Latest Ref Range: 11.4 - 13.8 % 17.2 (H) 15.8 (H) Platelets Latest Ref Range: 145 - 357 x10(3)/mcL 88 (L) 76 (L) MPV Latest Ref Range: 7.6 - 12.9 fL 11.4 12.2 nRBC % Auto Latest Units: % 0.0 0.0 nRBC Abs Auto Latest Ref Range: 0.000 - 0.000 x10(3)/mcL 0.000 0.000 Neutr Abs (ANC) Latest Ref Range: 1.70 - 6.10 x10(3)/mcL 2.62 3.15 Neutrophils % Latest Units: % 64.5 80.4 Immature Gran % Latest Units: % 0.20 0.50 Lymphocytes % Latest Units: % 16.2 7.9 Monocytes % Latest Units: % 8.8 11.2 Eosinophils % Latest Units: % 9.1 0.0 Basophils % Latest Units: % 1.2 0.0 Tamara Gran Abs Latest Ref Range: 0.00 - 0.04 x10(3)/mcL 0.01 0.02 Lymphocytes Abs Latest Ref Range: 0.9 - 3.2 x10(3)/mcL 0.7 (L) 0.3 (L) Monocyte Abs Latest Ref Range: 0.3 - 0.9 x10(3)/mcL 0.4 0.4 Eosinophils Abs Latest Ref Range: 0.0 - 0.4 x10(3)/mcL 0.4 0.0 Basophils Abs Latest Ref Range: 0.0 - 0.1 x10(3)/mcL 0.0 0.0 Sodium Latest Ref Range: 135 - 145 mmol/L 140 135 Potassium Latest Ref Range: 3.5 - 5.0 mmol/L 4.5 4.0 Chloride Latest Ref Range: 98 - 107 mmol/L 107 103 CO2 Latest Ref Range: 22 - 31 mmol/L 20 (L) 19 (L) Anion Gap Latest Ref Range: 5 - 15 mmol/L 13 13 BUN Latest Ref Range: 10 - 20 mg/dL 62 (H) 75 (H) Creatinine Latest Ref Range: 0.80 - 1.50 mg/dL 2.12 (H) 1.91 (H) eGFR Latest Ref Range: >=60 mL/min/1.73 m?? 33 (L) 37 (L) eGFR Latest Ref Range: >=60 mL/min/1.73 m?? 38 (L) 43 (L) Glucose Lvl Latest Ref Range: 65 - 199 mg/dL 169 394 (H) Calcium Latest Ref Range: 8.5 - 10.5 mg/dL 9.3 8.4 (L) Phosphorus Latest Ref Range: 2.5 - 4.5 mg/dL 3.2 Total Protein Latest Ref Range: 6.1 - 8.0 gm/dL 7.5 Albumin Latest Ref Range: 3.2 - 5.2 gm/dL 3.8 3.3 Total Bilirubin Latest Ref Range: 0.2 - 1.3 mg/dL 0.4 Alk Phos Latest Ref Range: 40 - 120 unit/L 121 (H) AST Latest Ref Range: 0 - 39 unit/L 18 ALT Latest Ref Range: 0 - 55 unit/L 15 Ferritin Latest Ref Range: 30 - 400 ng/mL 128 Iron Latest Ref Range: 45 - 160 mcg/dL 60 TIBC Latest Ref Range: 250 - 450 mcg/dL 386 Iron Saturation Latest Ref Range: 20 - 50 % 16 (L) PTH Latest Ref Range: 15 - 65 pg/mL 89 (H) Problem/Goal/Assessment/Plan: Problem: Chronic Kidney Disease Goal: Reduce rate of progression Education for CKD Stage specific issues Results: Estimated GFR (MDRD): 43 ml/min/1.73m2 CKD Stage 3 - Potassium level - 4.0 - CO2 level - 19 - Uric Acid level - Not tested, taking allopurinol 300 mg daily. Problem: Management of Anemia related to Chronic Kidney Disease (CKD) Goal:P Hgb 9.5-10.9 g/dl Ferritin>100ng/ml TSAT>20% Today's Results Hgb - 9.8 Ferritin - 128 on 04/21/18 TSAT - 16 on 04/21/18 Receiving erythropoetic stimulating agent? Yes Start Date: 05/10/2017 Drug/Dose/Frequency: Procrit 10,000 every other week Where administered (clinic/hosp/home): [facility] heme/onc Last IV Iron replacement therapy (Venofer), Date : One dose monthly Changes discussed with RN Specialist: Followed by Dr Ignacio in [facility] for Procrit and Venofer. Problem: Hypertension Goal: Urine alb:cr ratio <30mg/g - 140/90, Urine alb:cr ratio > 30mg/g - 130/80 Sodium intake < 2 Gm per day. Results: BP today - 144/70 Problem: Proteinuria Goal: Pro:Cr ratio <0.2mg/mg Today's results: Pro:Cr ratio - not tested Changes discussed with RN Specialist: taking lisinopril 20 mg daily. Problem: Bone Disease Goal: Stage 3 PTH: 35-70 pg/ml Phos 2.7-4.6 Ca 8.5-10.5mg/dl Stage 4 PTH: 70-110 pg/ml Phos 2.7-4.6 Ca 8.5-10.5mg/dl Stage 5 PTH: 150-300 pg/ml Phos 3.5-5.5 Ca 8.5-10.5mg/dl Results: PTH today - 89 (pt not taking calcitriol) Phos today - 3.2 (pt not taking binders) Calcium today - 8.4 Problem: Nutrition Goal: Albumin > 4.0gm/dl BMI 20-25 kg/m2 Results: Albumin today - 3.3 Problem: Diabetes Goal: HA1C ~ 7.0% Results: HA1C today - not tested Random Glucose - 394 Problem: Dyslipidemia Goal: LDL < 100 mg/dl Results: LDL today - not tested Summary: Stable stage 3b A1 CKD. No uremic signs or symptoms as detailed above. Continue iron, GREGOR per hematology. Continue allopurinol. No indication for calcitriol Return to CKD clinic: 6 months. documented in this encounter Plan of Treatment Upcoming Encounters Date Type Specialty Care Team Description 06/19/2022 Office Visit Rheumatology Richi Blackmon MD [facility] DR RHEUMATOLOGY [place], [place] [address] (Wo rk) Scheduled Procedures Name Priority Associated Diagnoses Date/Time EGD, UPPER GI ENDOSCOPY Family hx of colon cance r COLONOSCOPY, DIAGNOSTIC Family hx of colon cance r documented as of this encounter Visit Diagnoses Diagnosis CKD (chronic kidney disease) stage 4, GF R 15-29 ml/min Chronic kidney disease, Stage IV (severe ) documented in this encounter Care Teams Cycle Counter Relationship Specialty Start Date End Date Jazmine Baer MD PCP - General 11/07/10 [address] [place] [address] documented as of this encounter
--- OUTSIDE RECORDS SUMMARY | 2022-04-11 10:49 | XMS_ITS | Encounter Summary ---
:1960 Author Organization [facility] [place] [address] Care Team Providers Name Role Phone Jazmine Baer MD Primary Care Provider Encounter Details Date Type Department Care Team Description 08/18/2018 Hospital Encounter Hematology and Bicytop enia; [place] [facility] Iron deficiency anemia, unsp ecified iron deficiency anemia type; [facility] Stage 3 [place] [id number] Social History Tobacco Use Types Packs/Day [...] Take 1 capsule by mouth 0 daily. epoetin matt (PROCRIT Inject 10,000 Units as 0 02/29/2020 INJ) directed every 14 days. omeprazole (PRILOSEC) Take 20 mg by mouth 0 09/25/2018 20 mg Capsule, Delayed daily. Release(E.C.) metoprolol succinate Take 50 mg by mouth [...] 06/19/2022 Office Visit Rheumatology Richi Blackmon MD [facility] RHEUMATOLOGY [place], [place] [address] (Wo rk) Scheduled Procedures Name Priority Associated Diagnoses Date/Time EGD, UPPER GI ENDOSCOPY Family hx of colon cance r COLONOSCOPY, DIAGNOSTIC Family hx of colon cance r documented as of this encounter Procedures Procedure Name Priority Date/Time Associated Comments Diagnosis HEMOGRAM STAT 08/18/2018 9:46 AM Bicytopenia Results for this EDT Iron deficiency procedure ar e in anemia, unspecified the resu lts iron deficiency section. anemia type Stage 3 chronic kidney disease DIFFERENTIAL, STAT 08/18/2018 9:46 AM Bicytopenia Results for this AUTOMATED EDT Iron deficiency procedure ar e in anemia, unspecified the resu lts iron deficiency section. anemia type Stage 3 chronic kidney disease IRON AND TIBC STAT 08/18/2018 9:46 AM Bicytopenia Results for this EDT Iron deficiency procedure ar e in anemia, unspecified the resu lts iron deficiency section. anemia type Stage 3 chronic kidney disease CBC (WITH DIFF) STAT 08/18/2018 9:46 AM Bicytopenia EDT Iron deficiency anemia, unspecified iron deficiency anemia type Stage 3 chronic kidney disease FERRITIN STAT 08/18/2018 9:46 AM Bicytopenia Results for this EDT Iron deficiency procedure ar e in anemia, unspecified the resu lts iron deficiency section. anemia type Stage 3 chronic kidney disease COMPREHENSIVE STAT 08/18/2018 9:46 AM Bicytopenia Results for this METABOLIC PANEL EDT Iron deficiency procedure are in (NON-FASTING) anemia, unspecified the res ults iron deficiency section. anemia type Stage 3 chronic kidney disease documented in this encounter Results (ABNORMAL) Differential, Automated (08/18/2018 9:46 AM EDT) [facility] gist Method Time Signature Neutrophils % 70.2 % [facility] Neutr Abs (ANC) 3.23 1.70 - [facility] 6.10 [facility] x10(3)/[facility] LABORATORY Lymphocytes % 15.7 % [facility] Lymphocytes Abs 0.7 (L) 0.9 - 3.2 [facility] x10(3)/[facility] LABORATORY Monocytes % 10.0 % [facility] Monocyte Abs 0.5 0.3 - 0.9 [facility] x10(3)/[facility] LABORATORY Eosinophils % 3.3 % [facility] Eosinophils Abs 0.2 0.0 - 0.4 [facility] x10(3)/[facility] LABORATORY Basophils % 0.4 % [facility] Basophils Abs 0.0 0.0 - 0.1 [facility] x10(3)/[facility] LABORATORY Immature Gran % 0.40 % [facility] Comment: Immature granulocytes(IG's)percentage an d absolute count will include metamyelocytes, myelocytes, and promyelo cytes. Blood smears from CBCs yielding IG's will be scanned manually for monserrat bowens. If this scan disagrees with the automated IG or if promyelocytes are not ed, a manual differential will be performed. Tamara Gran Abs 0.02 0.00 - 0.04 x10(3)/[facility] Specimen Anatomical Collection Method Collection Time Receive d Time (Source) Location / / Volume Laterality Blood specimen 08/18/2018 9:46 AM 019 (specimen) EDT 10:01 AM EDT Resulting Agency Comment Spec In Lab Noemy Grant STORE STOCK ASSOCIATE HEMATOLOGY ORDERABLES Performing Organization Address City/State/[place] [address] (ABNORMAL) Hemogram (08/18/2018 9:46 AM EDT) [facility] gist Method Time Signature WBC 4.6 4.0 - 9.5 [facility] x10(3)/[facility] LABORATORY RBC 3.50 (L) 4.58 - [facility] x10(6)/[facility] LABORATORY Hemoglobin 11.0 (L) 13.7 - [facility] 16.5 gm/dL [facility] Hematocrit 35.2 (L) 40.5 - [facility] 48.5 % [facility] MCV 100.6 (H) 82.9 - [facility] 93.1 [facility] LABORATORY MCH 31.4 27.5 - [facility] 32.1 pg [facility] MCHC 31.3 (L) 32.0 - [facility] gm/dL [facility] Platelets 81 (L) 145 - 357 [facility] x10(3)/[facility] LABORATORY RDWSD 60.2 (H) 36.0 - [facility] 45.0 [facility] LABORATORY RDWCV 16.5 (H) 11.4 - [facility] 13.8 % [facility] MPV 12.3 7.6 - 12.9 [facility] LABORATORY nRBC % Auto 0.0 % [facility] nRBC Abs Auto 0.000 0.000 - [facility] 0.000 [facility] x10(3)/[facility] LABORATORY Specimen Anatomical Collection Method Collection Time Receive d Time (Source) Location / / Volume Laterality Blood specimen 08/18/2018 9:46 AM 019 (specimen) EDT 10:01 AM EDT Resulting Agency Comment Spec In Lab Noemy Robles Grant APRN HEMATOLOGY ORDERABLES Performing Organization Address City/State/[place] [address] Ferritin (08/18/2018 9:46 AM EDT) athologist Signature Ferritin 279 30 - 400 [facility] [place] ng/mL [facility] Comment: Pediatric reference ranges not verified at [facility] interpret with caution. Reference ranges for females greater kayleigh n 50 years of age approach values for men, i.e., 30-400 ng/mL. Specimen Anatomical Collection Method Collection Time Receive d Time (Source) Location / / Volume Laterality Blood specimen 08/18/2018 9:46 AM 019 (specimen) EDT 10:01 AM EDT Resulting Agency Comment Spec In Lab Noemy Grant STORE STOCK ASSOCIATE CHEMISTRY ORDERABLES Performing Organization Address City/[facility]/ZIP Code Phon e Number [address] (ABNORMAL) Iron and TIBC (08/18/2018 9:46 AM EDT) athologist Signature Iron 62 45 - 160 [facility] [place] mcg/dL [facility] TIBC 340 250 - 450 [facility] [place] mcg/dL [facility] Iron Saturation 18 (L) 20 - 50 % [facility] Specimen Anatomical Collection Method Collection Time Receive d Time (Source) Location / / Volume Laterality Blood specimen 08/18/2018 9:46 AM 019 (specimen) EDT 10:01 AM EDT Resulting Agency Comment Spec In Lab Noemy Robles Grant STORE STOCK ASSOCIATE CHEMISTRY ORDERABLES Performing Organization Address City/State/[place] [address] (ABNORMAL) Comprehensive metabolic panel (non-fasting) (08/18/2018 9:46 AM EDT) P athologist Signature Glucose Lvl 199 65 - 199 [facility] mg/dL [facility] Comment: Diabetes: >=200 mg/dL plus symp toms BUN 59 (H) 10 - 20 mg/dL [facility] Creatinine 1.57 (H) 0.80 - 1.50 mg/dL [facility] Sodium 137 135 - 145 mmol/L [facility] Potassium 4.2 3.5 - 5.0 mmol/L [facility] Comment: Please note: ??Patients with WBC >100,00 0 may have falsely elevated Potassium levels. ??For accurate Potassium quantif ication in these patients send serum separator tube (gold top) for subsequent determinations. ??Contact the Clinical Chemistry Laboratory if there are any qu estions. Chloride 102 98 - 107 mmol/L [facility] CO2 23 22 - 31 mmol/L [facility] Anion Gap 12 5 - 15 mmol/L [facility] Calcium 9.1 8.5 - 10.5 mg/dL [facility] Total Protein 8.9 (H) 6.1 - 8.0 gm/dL [facility] Albumin 3.4 3.2 - 5.2 gm/dL [facility] AST 33 0 - 39 unit/L [facility] ALT 41 0 - 55 unit/L [facility] Alk Phos 135 (H) 40 - 120 unit/L [facility] Total Bilirubin 0.5 0.2 - 1.3 mg/dL [facility] Estimated GFR 47 (L) >=60 mL/min/1.73 m?? [facility] Comment: The eGFR was calculated using the CKD-EP I equation. As with all creatinine based estimates of kidney function, eGFR values calculated with the CKD-EPI equation are not accurate in patients wi th acute kidney failure, extremes of body mass or the acutely ill. [email or web address] eGFR 55 (L) >=60 mL/min/1.73 m?? [facility] Comment: The eGFR was calculated using the CKD-EP I equation. As with all creatinine based estimates of kidney function, eGFR values calculated with the CKD-EPI equation are not accurate in patients wi th acute kidney failure, extremes of body mass or the acutely ill. [email or web address] Specimen Anatomical Collection Method Collection Time Receive d Time (Source) Location / / Volume Laterality Blood specimen 08/18/2018 9:46 AM 019 (specimen) EDT 10:01 AM EDT Resulting Agency Comment Spec In Lab Noemy Grant APRN CHEMISTRY ORDERABLES Performing Organization Address City/State/Z[place] [address] documented in this encounter Visit Diagnoses Diagnosis Bicytopenia Other specified diseases of blood and bl ood-forming organs Iron deficiency anemia, unspecified iron deficiency anemia type Stage 3 chronic kidney disease documented in this encounter Care Teams Drop Hammer Operator Helper Relationship Specialty Start Date End Date Jazmine Baer MD PCP - General 11/07/10 [address] [place] [address] documented as of this encounter
--- OUTSIDE RECORDS SUMMARY | 2022-04-11 10:49 | XMS_ITS | Encounter Summary ---
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 [address] [place] [address] Referral ID Status Reason Start Date Expiration Date Visits V isits Requested Authorized [id number] Closed Consult, 03/31/2019 03/30/2020 1 1 Test & Treat Encounter Details Date Type Department Care Team Description 03/31/2019 Office Visit Rheumatology at [facility] Akash Prieto, Myositis of other site, unsp ecified myositis type; [facility] Type 2 diabetes mellitus with stage 1 ch ronic kidney disease, unspecified whether medical terminologist insulin use; [facility] Chronic kidney disease, stag e 3 (moderate) [place] [address] CENTER [phone] RHEUMATOLOGY DEPT. [place], [place] [address] Social History Tobacco Use Types Packs/Day Years Used Date Never Smoker Smokeless Tobacco: Never Used Alcohol Use Standard Drinks/Week Comments No 0 (1 standard drink = 0.6 oz pure alcoho l) Sex Assigned at Date Recorded Not on file documented as of this encounter Last Filed Vital Signs Vital Sign Reading Time Taken Comments Blood Pressure 159/67 03/31/2019 10:22 AM EDT Pulse 72 03/31/2019 10:22 AM EDT Temperature 36.7 ??C (98 ??F) 03/31/2019 10:22 AM EDT Respiratory Rate - - Oxygen Saturation 99% 03/31/2019 10:22 AM EDT Inhaled Oxygen Concentration - - Weight 124.7 kg (275 lb) 03/31/2019 10:22 AM EDT Height 172.7 cm (5' 8) 03/31/2019 10:22 AM EDT Body Mass Index 41.81 03/31/2019 10:22 AM EDT documented in this encounter Progress Notes Akash Prieto MD - 03/31/2019 10:30 AM EDT The patient is a 59-year-old male with 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 his CK was initially in the 10-11,000 range but most recently it has been below 100 on a regimen that includes 2 infusions of 1 g/kg of IVIG done on 2 successive days monthly and on the first day he gets a gram of Solu-Medrol In the past he is tried and failed azathioprine mycophenolate rituximab and methotrexate He has been stable on this regimen for over a year and has no restrictions with regard to his residual muscle strength His other problems include diabetes for which she is on insulin with good control of his hemoglobin A1c but unfortunately his weight is unchanged He has gout but his uric acid is well controlled on allopurinol he has not needed to use colchicine He had a normal cardiac evaluation 2 years ago but by my exam he probably has obstructive sleep apnea and I have asked him to get a sleep study On exam he is overweight to obese BP 159/67 Pulse 72 Temp 36.7 ??C (98 ??F) (Oral) Ht 172.7 cm (5' 8) Wt 124.7 kg (275 lb) SpO2 99% BMI 41.81 kg/m?? 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 Ferrara documented in this encounter Miscellaneous Notes Addendum Note - Thelma Crump - 03/31/2019 10:30 AM EDT Addended by: THELMA CRUMP on: 03/31/2019 11:03 AM Modules accepted: Orders documented in this encounter Plan of Treatment Upcoming Encounters Date Type Specialty Care Team Description 06/19/2022 Office Visit Rheumatology Richi Blackmon MD [facility] ER DR RHEUMATOLOGY [place], [place] [address] (Wo rk) Scheduled Procedures Name Priority Associated Diagnoses Date/Time EGD, UPPER GI ENDOSCOPY Family hx of colon cance r COLONOSCOPY, DIAGNOSTIC Family hx of colon cance r Scheduled Referrals Name Type Priority Associated Diagnoses Order S chedule Referral to Sleep Outpatient Referral Routine Myositis of othe r Ordered: [facility] site, unspecified 2018 myositis type Type 2 diabetes mellitus with stage 1 chronic kidney disease, unspecified whether skilled nursing insulin use documented as of this encounter Procedures Procedure Name Priority Date/Time Associated Comments Diagnosis HC C-REACTIVE PROTEIN Routine 03/31/2019 11:07 Myositis of oth er Results for this AM EDT site, unspecified procedure are in myositis type the results Type 2 diabetes section. mellitus with stage 1 chronic kidney disease, unspecified whether skilled nursing insulin use HEMOGRAM Routine 03/31/2019 11:07 Myositis of other Result s for this AM EDT site, unspecified procedure are in myositis type the results Type 2 diabetes section. mellitus with stage 1 chronic kidney disease, unspecified whether medical terminologist insulin use DIFFERENTIAL, Routine 03/31/2019 11:07 Myositis of other Resul ts for this AUTOMATED AM EDT site, unspecified procedure are in myositis type the results Type 2 diabetes section. mellitus with stage 1 chronic kidney disease, unspecified whether medical terminologist insulin use HC VITAMIN D TOTAL-25 Routine 03/31/2019 11:07 Chronic kidney Results for this HYDROXY AM EDT disease, stage 3 procedure a re in (moderate) the results Myositis of other section. site, 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 chronic kidney disease, unspecified whether medical terminologist insulin use HC ESR-SEDIMENTATION Routine 03/31/2019 11:07 Myositis of othe r Results for this RATE, BLOOD AM EDT site, unspecified procedure are in myositis type the results Type 2 diabetes section. mellitus with stage 1 chronic kidney disease, unspecified whether medical terminologist insulin use HC CBC,PLT & AUTO DIFF Routine 03/31/2019 11:07 Myositis of ot her AM EDT site, 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 chronic kidney disease, unspecified whether skilled nursing insulin use HC URIC ACID, SERUM Routine 03/31/2019 11:07 Type 2 diabetes R esults for this AM EDT mellitus with stage procedur e are in 1 chronic kidney the results disease, section. unspecified whether skilled nursing insulin use HC MAGNESIUM, SERUM Routine 03/31/2019 11:07 Myositis of other Results for this AM EDT site, unspecified procedure are in myositis type the results Type 2 diabetes section. mellitus with stage 1 chronic kidney disease, unspecified whether medical terminologist insulin use HC FOLATE, SERUM Routine 03/31/2019 11:07 Myositis of other Re sults for this AM EDT site, unspecified procedure are in myositis type the results Type 2 diabetes section. mellitus with stage 1 chronic kidney disease, unspecified whether skilled nursing insulin use HC VITAMIN B12 SERUM Routine 03/31/2019 11:07 Myositis of othe r Results for this AM EDT site, unspecified procedure are in myositis type the results Type 2 diabetes section. mellitus with stage 1 chronic kidney disease, unspecified whether medical terminologist insulin use HC CREATINE Routine 03/31/2019 11:07 Myositis of other Result s for this PHOSPHOKINASE, SERUM AM EDT site, unspecified pr ocedure are in myositis type the results Type 2 diabetes section. mellitus with stage 1 chronic kidney disease, unspecified whether medical terminologist insulin use COMPREHENSIVE Routine 03/31/2019 11:07 Myositis of other Resul ts for this METABOLIC PANEL AM EDT site, unspecified procedu re are in (NON-FASTING) myositis type the results Type 2 diabetes section. mellitus with stage 1 chronic kidney disease, unspecified whether medical terminologist insulin use documented in this encounter Results (ABNORMAL) Differential, Automated (03/31/2019 11:07 AM EDT) [facility] Method Time Signature Neutrophils % 66.8 % [facility] Neutr Abs (ANC) 3.17 1.70 - [facility] 6.10 [facility] x10(3)/[facility] LABORATORY Lymphocytes % 14.3 % [facility] Lymphocytes Abs 0.7 (L) 0.9 - 3.2 [facility] x10(3)/[facility] LABORATORY Monocytes % 12.0 % [facility] Monocyte Abs 0.6 0.3 - 0.9 [facility] x10(3)/[facility] LABORATORY Eosinophils % 5.9 % [facility] Eosinophils Abs 0.3 0.0 - 0.4 [facility] x10(3)/[facility] LABORATORY Basophils % 0.8 % [facility] Basophils Abs 0.0 0.0 - 0.1 [facility] x10(3)/[facility] LABORATORY Immature Gran % 0.20 % [facility] Comment: Immature granulocytes(IG's)percentage an d absolute count will include metamyelocytes, myelocytes, and promyelo cytes. Blood smears from CBCs yielding IG's will be scanned manually for concor dance. If this scan disagrees with the automated IG or if promyelocytes are not ed, a manual differential will be performed. Tamara Gran Abs 0.01 0.00 - 0.04 x10(3)/[facility] LABORATORY Specimen Anatomical Collection Method Collection Time Receive d Time (Source) Location / / Volume Laterality Blood specimen 03/31/2019 11:07 9 (specimen) AM EDT 11:14 AM EDT Resulting Agency Comment Spec In Lab Akash Prieto MD HEMATOLOGY ORDERABLES Performing Organization Address City/State/ZIP Code Phon e Number [address] (ABNORMAL) Hemogram (03/31/2019 11:07 AM EDT) Analysis Performed At Patho logist Time Signature WBC 4.8 4.0 - 9.[address] [facility] x10(3)/[facility] LABORATORY RBC 4.03 (L) 4.58 - [place] 5.54 [facility] x10(6)/[facility] LABORATORY Hemoglobin 12.6 (L) 13.7 - [place] 16.5 gm/dL [facility] LABORATORY Hematocrit 39.7 (L) 40.5 - [facility] 48.5 % [facility] LABORATORY MCV 98.5 (H) 82.9 - [facility] 93.1 [facility] LABORATORY MCH 31.3 27.5 - [place] 32.1 pg [facility] LABORATORY MCHC 31.7 (L) 32.0 - [place] 35.7 gm/dL [facility] LABORATORY Platelets 77 (L) 145 - 357 [facility] x10(3)/[facility] LABORATORY RDWSD 54.3 (H) 36.0 - [place] 45.0 [facility] LABORATORY RDWCV 14.9 (H) 11.4 - [facility] [place] 13.8 % [facility] LABORATORY MPV 11.7 7.6 - 12.[address] [facility] LABORATORY nRBC % Auto 0.0 % [facility] nRBC Abs Auto 0.000 0.000 - [facility] [place] 0.000 [facility] x10(3)/[facility] LABORATORY Specimen Anatomical Collection Method Collection Time Receive d Time (Source) Location / / Volume Laterality Blood specimen 03/31/2019 11:07 9 (specimen) AM EDT 11:14 AM EDT Resulting Agency Comment Spec In Lab Akash Prieto MD HEMATOLOGY ORDERABLES Performing Organization Address City/State/ZIP Code Phon e Number [address] Uric acid (03/31/2019 11:07 AM EDT) athologist [facility] Uric Acid 7.7 3.5 - 8.[address] [facility] mg/dL [facility] LABORATORY Specimen Anatomical Collection Method Collection Time Receive d Time (Source) Location / / Volume Laterality Blood specimen 03/31/2019 11:07 9 (specimen) AM EDT 11:14 AM EDT Resulting Agency Comment Spec In Lab Akash Prieto MD CHEMISTRY ORDERABLES Performing Organization Address City/State/Z[place] [address] (ABNORMAL) CRP, acute inflammation (03/31/2019 11:07 AM EDT) athologist [facility] CRP 11.8 (H) <=4.9 mg/L [facility] Specimen Anatomical Collection Method Collection Time Receive d Time (Source) Location / / Volume Laterality Blood specimen 03/31/2019 11:07 9 (specimen) AM EDT 11:14 AM EDT Resulting Agency Comment Spec In Lab Akash Prieto MD CHEMISTRY ORDERABLES Performing Organization Address City/[facility]/ZIP [place] [address] (ABNORMAL) Sedimentation rate (03/31/2019 11:07 AM EDT) athologist [facility] Sed Rate 48 (H) 0 - 15 [facility] mm/hr [facility] LABORATORY Specimen Anatomical Collection Method Collection Time Receive d Time (Source) Location / / Volume Laterality Blood specimen 03/31/2019 11:07 9 (specimen) AM EDT 11:14 AM EDT Resulting Agency Comment Spec In Lab Akash Prieto MD HEMATOLOGY ORDERABLES Performing Organization Address City/State/ZIP [place] [address] CK (03/31/2019 11:07 AM EDT) athologist [facility] CK, Total 78 0 - 200 [facility] unit/L [facility] LABORATORY Specimen Anatomical Collection Method Collection Time Receive d Time (Source) Location / / Volume Laterality Blood specimen 03/31/2019 11:07 9 (specimen) AM EDT 11:14 AM EDT Resulting Agency Comment Spec In Lab Akash Prieto MD CHEMISTRY ORDERABLES Performing Organization Address City/[facility]/ZIP Code Phon e Number [address] Magnesium (03/31/2019 11:07 AM EDT) P athologist Signature Magnesium 0.72 0.69 - 1.07 [place] mmol/L [facility] LABORATORY Specimen Anatomical Collection Method Collection Time Receive d Time (Source) Location / / Volume Laterality Blood specimen 03/31/2019 11:07 9 (specimen) AM EDT 11:14 AM EDT Resulting Agency Comment Spec In Lab Akash Prieto MD CHEMISTRY ORDERABLES Performing Organization Address City/[facility]/ZIP Code Phon e Number [address] Vitamin D, 25-Hydroxy (03/31/2019 11:07 AM EDT) P athologist Signature 25-OH Vit D 41 30 - 100 [place] Total ng/mL [facility] LABORATORY Comment: As of 2019, 25-hydroxyvitamin D jim ting has moved from the [employer] to the Ely [facility]. No substantial change in me asured values is expected. Specimen Anatomical Collection Method Collection Time Receive d Time (Source) Location / / Volume Laterality Blood specimen 03/31/2019 11:07 9 (specimen) AM EDT 11:14 AM EDT Resulting Agency Comment Spec In Lab Akash Prieto MD CHEMISTRY ORDERABLES Performing Organization Address City/[facility]/ZIP Code Phon e Number [address] Folate, serum (03/31/2019 11:07 AM EDT) P athologist Signature Folate Lvl >20.0 4.8 - 24.2 [place] ng/mL [facility] LABORATORY Specimen Anatomical Collection Method Collection Time Receive d Time (Source) Location / / Volume Laterality Blood specimen 03/31/2019 11:07 9 (specimen) AM EDT 11:14 AM EDT Resulting Agency Comment Spec In Lab Akash Prieto MD CHEMISTRY ORDERABLES Performing Organization Address City/State/ZIP Code Phon e Number [address] Vitamin B12 (03/31/2019 11:07 AM EDT) athologist Signature Vitamin B-12 1,068 232 - 1,245 [facility] pg/mL [facility]OR[facility]ORY Specimen Anatomical Collection Method Collection Time Receive d Time (Source) Location / / Volume Laterality Blood specimen 03/31/2019 11:07 9 (specimen) AM EDT 11:14 AM EDT Resulting Agency Comment Spec In Lab Akash Prieto MD CHEMISTRY ORDERABLES Performing Organization Address City/[facility]/ZIP [place] [address] (ABNORMAL) Comprehensive metabolic panel (non-fasting) (03/31/2019 11:07 AM EDT) athologist Signature Glucose Lvl 106 65 - 199 [facility] mg/dL [facility]ORY Comment: Diabetes: >=200 mg/dL plus symp toms BUN 49 (H) 10 - 20 mg/dL [facility]ORATORY Creatinine 1.58 (H) 0.80 - 1.50 mg/dL [facility] Sodium 140 135 - 145 mmol/L [facility] Potassium 4.5 3.5 - 5.0 mmol/L [facility] Comment: Please note: ??Patients with WBC >100,00 0 may have falsely elevated Potassium levels. ??For accurate Potassium quantif ication in these patients send serum separator tube (gold top) for subsequent determinations. ??Contact the Clinical Chemistry Laboratory if there are any qu estions. Chloride 104 98 - 107 mmol/L [facility] CO2 23 22 - 31 mmol/L [facility] Anion Gap 13 5 - 15 mmol/L [facility] Calcium 9.1 8.5 - 10.5 mg/dL [facility] Total Protein 9.3 (H) 6.1 - 8.0 gm/dL [facility] Albumin 3.7 3.2 - 5.2 gm/dL [facility] AST 26 0 - 39 unit/L [facility] ALT 25 0 - 55 unit/L [facility] Alk Phos 118 40 - 130 unit/L [facility] Total Bilirubin 0.6 0.2 - 1.3 mg/dL [facility] Estimated GFR 47 (L) >=60 mL/min/1.73 m?? [facility] Comment: The eGFR was calculated using the CKD-EP I equation. As with all creatinine based estimates of kidney function, eGFR values calculated with the CKD-EPI equation are not accurate in patients wi th acute kidney failure, extremes of body mass or the acutely ill. [email or web address]/[email or web address] eGFR 54 (L) >=60 mL/min/1.73 m?? [facility] Comment: The eGFR was calculated using the CKD-EP I equation. As with all creatinine based estimates of kidney function, eGFR values calculated with the CKD-EPI equation are not accurate in patients wi th acute kidney failure, extremes of body mass or the acutely ill. http://bettermarks/[facility] Specimen Anatomical Collection Method Collection Time Receive d Time (Source) Location / / Volume Laterality Blood specimen 03/31/2019 11:07 9 (specimen) AM EDT 11:14 AM EDT Resulting Agency Comment Spec In Lab Akash Prieto MD CHEMISTRY ORDERABLES Performing Organization Address City/State/Z[place] [address] documented in this encounter Visit Diagnoses Diagnosis Myositis of other site, unspecified myos itis type Type 2 diabetes mellitus with stage 1 ch ronic kidney disease, unspecified whether skilled nursing insulin use Chronic kidney disease, stage 3 (moderat e) documented in this encounter Care Teams Senior Interaction Designer Relationship Specialty Start Date End Date Jazmine Baer MD PCP - General 11/07/10 [address] [place] [address] documented as of this encounter
--- OUTSIDE RECORDS SUMMARY | 2022-04-11 10:49 | XMS_ITS | Encounter Summary ---
:1960 Author Organization [facility] [place] [address] Care Team Providers Name Role Phone Jazmine Baer MD Primary Care Provider Encounter Details Date Type Department Care Team Description 09/12/2018 Orders Only Hematology and Oncology at Karen Camilo, WHITE MIXING OPERATOR [facility] Hilda shafer HEMATOLOGY/[place] [address] DEPT. [phone] [place], [place] [address] (Wo rk) Social History Tobacco Use Types Packs/Day Years Used Date Never Smoker Smokeless Tobacco: Never Used Alcohol Use Standard Drinks/Week Comments No 0 (1 standard drink = 0.6 oz pure alcoho l) Sex Assigned at Date Recorded Not on file documented as of this encounter Progress Notes Karen Lugo APRN - 09/12/2018 4:40 PM EDT Date: 09/12/2018 Patient Name: Bucky Acevedo : 1960 Diagnosis: Iron deficiency anemia, anemia of renal insufficiency Referral to [site]: [facility] Lab orders: ?? CBC, creatinine q2 weeks; iron saturation q4 weeks Infusion Orders: ?? Aranesp 60mcg SQ injection q2 weeks for for Hgb < 12 ?? Venofer 300mg IV every 4 weeks x 6 for iron saturation < 20 Signature: Karen Lugo, MSN, WHITE MIXING OPERATOR beeper # [id number] Co-signature [if needed]: documented in this encounter Plan of Treatment Upcoming Encounters Date Type Specialty Care Team Description 06/19/2022 Office Visit Rheumatology Richi Blackmon MD [facility] [address] RHEUMATOLOGY [place], [place] [address] (Wo rk) Scheduled Procedures Name Priority Associated Diagnoses Date/Time EGD, UPPER GI ENDOSCOPY Family hx of colon cance r COLONOSCOPY, DIAGNOSTIC Family hx of colon cance r documented as of this encounter Visit Diagnoses Not on filedocumented in this encounter Care Teams Furnace Liner Relationship Specialty Start Date End Date Jazmine Baer MD PCP - General 11/07/10 [address] [place] [address] documented as of this encounter
--- OUTSIDE RECORDS SUMMARY | 2022-04-11 10:49 | XMS_ITS | Encounter Summary ---
:1960 Author Organization [facility] [place] [address] Care Team Providers Name Role Phone Jazmine Baer MD Primary Care Provider Encounter Details Date Type Department Care Team Description 06/12/2018 Telephone Rheumatology at [facility] [place] [address] Social History Tobacco Use Types Packs/Day Years Used Date Never Smoker Smokeless Tobacco: Never Used Alcohol Use Standard Drinks/Week Comments No 0 (1 standard drink = 0.6 oz pure alcoho l) Sex Assigned at Date Recorded Not on file documented as of this encounter Miscellaneous Notes Telephone Encounter - Jhonathan Diaz RN - 06/12/2018 1:25 PM EST Faxed Physician Order Sheet for IVIG ([facility]) to [facility]. Fax confirmation time stamped for 06/12/2018 @ [id number] documented in this encounter Plan of Treatment Upcoming Encounters Date Type Specialty Care Team Description 06/19/2022 Office Visit Rheumatology Richi Blackmon MD [facility] ER DR RHEUMATOLOGY [place], [place] [address] (Wo rk) Scheduled Procedures Name Priority Associated Diagnoses Date/Time EGD, UPPER GI ENDOSCOPY Family hx of colon cance r COLONOSCOPY, DIAGNOSTIC Family hx of colon cance r documented as of this encounter Visit Diagnoses Not on filedocumented in this encounter Care Teams Senior Branch Manager Relationship Specialty Start Date End Date Jazmine Baer MD PCP - General 11/07/10 [address] [place] [address] documented as of this encounter
--- OUTSIDE RECORDS SUMMARY | 2022-04-11 10:49 | XMS_ITS | Encounter Summary ---
:1960 Author Organization [place] [address] Care Team Providers Name Role Phone Jazmine Baer MD Primary Care Provider Reason for Visit Consultation (Routine) - Closed Specialty Diagnoses / Procedures Referred By Contact Refer red To Contact Endocrinology Diagnoses Type 2 diabetes mellitus with diabetic nephropathy, with long-term current use of insulin Samantha Dietz MD Armstrong, Alicia M, LD [facility] D [facility] [place] [address] Referral ID Status Reason Start Date Expiration Date Visits V isits Requested Authorized [id number] Closed Consult, 03/12/2018 03/12/2019 1 1 Test & Treat Encounter Details Date Type Department Care Team Description 05/12/2018 Office Visit Endocrinology at [facility] Enedina Bassett Type 2 diabetes [facility] DOUGLAS Montejo mellitus with [facility] Medical [facility], [place] [address] long-term current use [phone] [place] [address] of insulin Social History Tobacco Use Types Packs/Day Years Used Date Never Smoker Smokeless Tobacco: Never Used Alcohol Use Standard Drinks/Week Comments No 0 (1 standard drink = 0.6 oz pure alcoho l) Sex Assigned at Date Recorded Not on file documented as of this encounter Progress Notes Enedina Duffy LD - 05/12/2018 11:00 AM EST [facility] Diagnostic Visit Bucky Acevedo is a 58 y.o. male with T2DM in poor control here today for a Chad CGM Placement. Recent Labs 10/30/17 1315 HA1C 10.1* No charge documented in this encounter Plan of Treatment Upcoming Encounters Date Type Specialty Care Team Description 06/19/2022 Office Visit Rheumatology Richi Blackmon MD [facility] DR RHEUMATOLOGY [place], [place] [address] (Wo rk) Scheduled Procedures Name Priority Associated Diagnoses Date/Time EGD, UPPER GI ENDOSCOPY Family hx of colon cance r COLONOSCOPY, DIAGNOSTIC Family hx of colon cance r Scheduled Referrals Name Type Priority Associated Diagnoses Order S chedule Referral to Outpatient Referral Routine Type 2 diabetes Order ed: Diabetic Education mellitus with 03/12/20 18 diabetic nephropathy, with long-term current use of insulin documented as of this encounter Visit Diagnoses Diagnosis Type 2 diabetes mellitus with hyperglyce nupur, with long-term current use of insulin documented in this encounter Care Teams Cold Meat Chef Relationship Specialty Start Date End Date Jazmine Baer MD PCP - General 11/07/10 [address] [place] [address] documented as of this encounter
--- OUTSIDE RECORDS SUMMARY | 2022-04-11 10:49 | XMS_ITS | Encounter Summary ---
:1960 Author Organization [facility] [place] [address] Care Team Providers Name Role Phone Jazmine Baer MD Primary Care Provider Reason for Visit Reason Comments Follow-up Encounter Details Date Type Department Care Team Description 04/21/2018 Office Visit Hematology and Anastasia Ignacio MD [facility] DR HEMATOLOGY/[place] [address] Bicytopenia; [place] [facility] [place] Karen Lugo APRN [facility] DR HEMATOLOGY/[place] [address] Iron deficiency anemia, unspecified iron deficiency anemia type; [facility] Noemy Grant APRN [facility] DR [place]ATOLOGY[place] [address] Stage 3 [place] [address] Social History Tobacco Use Types Packs/Day Years Used Date Never Smoker Smokeless Tobacco: Never Used Alcohol Use Standard Drinks/Week Comments No 0 (1 standard drink = 0.6 oz pure alcoho l) Sex Assigned at Date Recorded Not on file documented as of this encounter Last Filed Vital Signs Vital Sign Reading Time Taken Comments Blood Pressure 138/56 04/21/2018 11:09 AM EST Pulse 67 04/21/2018 11:09 AM EST Temperature 36.5 ??C (97.7 ??F) 04/21/2018 11:09 AM EST Respiratory Rate 18 04/21/2018 11:09 AM EST Oxygen Saturation 100% 04/21/2018 11:09 AM EST Inhaled Oxygen Concentration - - Weight 122 kg (269 lb) 04/21/2018 11:09 AM EST Height 173.5 cm (5' 8.31) 04/21/2018 11:09 AM EST shoe s on Body Mass Index 40.53 04/21/2018 11:09 AM EST documented in this encounter Progress Notes Noemy Grant, PHOTO TECHNICIAN - 04/21/2018 11:15 AM [place] [address] HEMATOLOGY/BMT CONSULTATION VISIT NOTE Chief Complaint: Bucky Beth is a 58 y.o. male referred by Dr. Baer for evaluation of bicytopenia (anemia and thrombocytopenia) . Data Review (From Jazmine Baer MD and [facility]) Oringinal History of Present Illness (03/16/16) Bucky Beth is a 58 y.o. 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 He was referred for evaluation ofiron deficiency anemia and thrombocytopenia. He had been evaluated by Dr Evangelista at [facility] in 2012 for anemia and thrombocytopenia. At that time a bone marrow biopsy was done which was normal. He states that he was started on iron supplementation pills at that time however, he used them briefly before stopping. He is currently on oral ferrous sulfate alternating with ferrous gluconate daily. He states that Ferrous gluconate was started by [facility] because of constipation with ferrous sulfate. He endorses tiredness/ fatigue with exertion. He denies chest [...] Interim HPI: Bucky returns to clinic today for routine follow-up of his bicytopenias, iron deficiency. He has been well. His strength continues to improve and he is able to get on the treadmill for about 20 minutes/day. He continues to receive IVIG for his myopathy. He is no longer requiring a walkeror wheelchair to get around. Blood sugars have been stable. Bucky continues to receive Procrit locally. Review of Systems: Constitutional --Energy level: chronic fatigue, varies --Pain: none --Fevers/chills/sweats: No --Unexpected weight loss or gain: No Eyes, ears, nose, throat --No change in vision --No change hearing, no oral or throat pain or thrush Cardiovascular --Chest pain: No --Palpitations: No Respiratory --Cough: No --SOB, CALDERON: No Gastrointestinal --Appetite: good --Early satiety: No --Nausea/vomiting/diarrhea/constipation: occasional nausea and constipation, but better the last fewweeks. --Melena/Hematochezia: No Genitourinary --Dysuria or hematuria: No Musculoskeletal --Muscle pain or weakness: no focal pain though continues to describe generalized muscle weakness --Joint pain or swelling: No Immune System --Recent infections: No Hematology/Lymph --Bruising/bleeding/melena: No --Enlarged nodes or other masses: No Skin --Rashes or petechiae: No Neuro --Numbness/tingling: Chronic tingling in the bilateral LEs. --Headache/dizziness: No Other ROS: All negative Past Medical History Past Medical History: Diagnosis Date ??? Cirrhosis ??? Diabetes ??? DM II (diabetes mellitus, type II), controlled ??? Gout ??? Hyperlipidemia ??? Hypertension ??? Kidney stone ??? 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 Obesity ??? Shingles 2010 Medications: ??? epoetin matt (PROCRIT INJ) ??? omeprazole (PRILOSEC) 20 mg Capsule, Delayed Release(E.C.) ??? metoprolol succinate (TOPROL-XL) 50 mg Tablet [...] Itching and Rash ??? Morphine Itching ??? Azjeiys-Iaq-Rpj Reductase Inhibitors Myopathy INTERIM SOCIAL HISTORY: Changes in job, home situation, tobacco or alcohol use since last visit: None CHANGES IN RELEVANT FAMILY HISTORY: None Physical Exam VITAL SIGNS: There were no vitals taken for this visit. GENERAL: Bucky Beth is a well-appearing 58 y.o. male in no acute distress. ENT: Oropharynx clear. No masses. No thrush or oral lesions. No conjunctival pallor. ENDOCRINE: No thyromegaly palpated. CARDIOVASCULAR: Heart with regular rate and rhythm without S3,S4. Has 3/6 SMITA murmur. No cyanosis orperipheral edema. PULMONARY: Lungs are clear to auscultation [...] oriented to person, place and time. Laboratory: Results for BUCKY BETH ( ) as of 04/27/2018 20:25 Ref. Range 04/21/2018 09:51 WBC Latest Ref Range: 4.0 - 9.5 x10(3)/mcL 4.1 RBC Latest Ref Range: 4.58 - 5.54 x10(6)/mcL 3.38 (L) Hemoglobin Latest Ref Range: 13.7 - 16.5 gm/dL 10.1 (L) Hematocrit Latest Ref Range: 40.5 - 48.5 % 32.4 (L) MCV Latest Ref Range: 82.9 - 93.1 fL 95.9 (H) MCH Latest Ref Range: 27.5 - 32.1 pg 29.9 MCHC Latest Ref Range: 32.0 - 35.7 gm/dL 31.2 (L) RDWSD Latest Ref Range: 36.0 - 45.0 fL 59.7 (H) RDWCV Latest Ref Range: 11.4 - 13.8 % 17.2 (H) Platelets Latest Ref Range: 145 - 357 x10(3)/mcL 88 (L) MPV Latest Ref Range: 7.6 - 12.9 fL 11.4 nRBC % Auto Latest Units: % 0.0 nRBC Abs Auto Latest Ref Range: 0.000 - 0.000 x10(3)/mcL 0.000 Neutr Abs (ANC) Latest Ref Range: 1.70 - 6.10 x10(3)/mcL 2.62 Neutrophils % Latest Units: % 64.5 Immature Gran % Latest Units: % 0.20 Lymphocytes % Latest Units: % 16.2 Monocytes % Latest Units: % 8.8 Eosinophils % Latest Units: % 9.1 Basophils % Latest Units: % 1.2 Tamara Gran Abs Latest Ref Range: 0.00 - 0.04 x10(3)/mcL 0.01 Lymphocytes Abs Latest Ref Range: 0.9 - 3.2 x10(3)/mcL 0.7 (L) Monocyte Abs Latest Ref Range: 0.3 - 0.9 x10(3)/mcL 0.4 Eosinophils Abs Latest Ref Range: 0.0 - 0.4 x10(3)/mcL 0.4 Basophils Abs Latest Ref Range: 0.0 - 0.1 x10(3)/mcL 0.0 Sodium Latest Ref Range: 135 - 145 mmol/L 140 Potassium Latest Ref Range: 3.5 - 5.0 mmol/L 4.5 Chloride Latest Ref Range: 98 - 107 mmol/L 107 CO2 Latest Ref Range: 22 - 31 mmol/L 20 (L) Anion Gap Latest Ref Range: 5 - 15 mmol/L 13 BUN Latest Ref Range: 10 - 20 mg/dL 62 (H) Creatinine Latest Ref Range: 0.80 - 1.50 mg/dL 2.12 (H) eGFR Latest Ref Range: >=60 mL/min/1.73 m?? 33 (L) eGFR Latest Ref Range: >=60 mL/min/1.73 m?? 38 (L) Glucose Lvl Latest Ref Range: 65 - 199 mg/dL 169 Calcium Latest Ref Range: 8.5 - 10.5 mg/dL 9.3 Total Protein Latest Ref Range: 6.1 - 8.0 gm/dL 7.5 Albumin Latest Ref Range: 3.2 - 5.2 gm/dL 3.8 Total Bilirubin Latest Ref Range: 0.2 - [...] Range: 20 - 50 % 16 (L) Radiology: No new images reviewed today Assessment & Plan: Bucky Beth is a 58 y.o. male who presents for return consultation [...] 4 doses of Venofer 300 mg at [facility] - where he already is receiving his IVIg. --Venofer is currently on hold and we are monitoring iron studies. [iron saturation may be better tofollow than ferritin given chronic inflammatory process] --Epo level inappropriately low for Hgb in the setting of CKD, Procrit 20,000Units SQ injection weekly for Hgb < 12gm/dL arranged at [facility] for patient's convenience 2. 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 No clinically significant bleeding. Platelet count remains stable 3. Fatigue - Unchanged although exercise does help. 4. Follow-up - Continue Procrit locally, continue with nephrology and rheumatology follow-up - We will arrange for Bucky to [facility] in approximately 6 months - Will arrange for iron infusions in [facility] Noemy Grant APRN Copies MD Donato Martinez MD documented in this encounter Plan of Treatment Upcoming Encounters Date Type Specialty Care Team Description 06/19/2022 Office Visit Rheumatology Richi Blackmon MD [facility] DR RHEUMATOLOGY [place], [place] [address] (Wo rk) Scheduled Procedures Name Priority Associated Diagnoses Date/Time EGD, UPPER GI ENDOSCOPY Family hx of colon cance r COLONOSCOPY, DIAGNOSTIC Family hx of colon cance r documented as of this encounter Results (ABNORMAL) Comprehensive metabolic panel (non-fasting) (08/18/2018 9:46 AM EDT) athologist Signature Glucose Lvl 199 65 - [address] [facility] mg/dL [facility] Comment: Diabetes: >=200 mg/dL plus symp toms BUN 59 (H) 10 - 20 mg/dL [facility] Creatinine 1.57 (H) 0.80 - 1.50 mg/dL [facility] Sodium 137 135 - 145 mmol/L [facility] Potassium 4.2 3.5 - 5.0 mmol/L [facility] Comment: Please note: ??Patients [...] Anion Gap 12 5 - 15 mmol/L [facility] Calcium 9.1 8.5 - 10.5 mg/dL [facility] Total Protein 8.9 (H) 6.1 - 8.0 gm/dL [facility] Albumin 3.4 3.2 - 5.2 gm/dL [facility] AST 33 0 - 39 unit/L [facility] ALT 41 0 - 55 unit/L [facility] Alk Phos 135 (H) 40 - 120 unit/L [facility] Total Bilirubin 0.5 0.2 - 1.3 mg/dL [facility] Estimated GFR 47 (L) >=60 mL/min/1.73 m?? [facility] Comment: The eGFR was calculated using the CKD-EP I equation. As with all creatinine based estimates of kidney function, eGFR values calculated with the CKD-EPI equation are not accurate in patients wi th acute kidney failure, extremes of body mass or the acutely ill. [email or web address] [place] [place] eGFR 55 (L) >=60 mL/min/1.73 m?? [facility] Comment: The eGFR was calculated using the CKD-EP I equation. As with all creatinine based estimates of kidney function, eGFR values calculated with the CKD-EPI equation are not accurate in patients wi th acute kidney failure, extremes of body mass or the acutely ill. [email or web address] [place] [place] Specimen Anatomical Collection Method Collection Time Receive d Time (Source) Location / / Volume Laterality Blood specimen 08/18/2018 9:46 AM 019 (specimen) EDT 10:01 AM EDT Resulting Agency Comment Spec In Lab Noemy Grant APRN CHEMISTRY ORDERABLES Performing Organization Address City/[facility]/ZIP [facility] [place] [address] (ABNORMAL) Iron and TIBC (08/18/2018 9:46 AM EDT) athologist Signature Iron 62 45 - 160 [place] mcg/dL [facility] TIBC 340 250 - 450 [place] mcg/dL [facility] Iron Saturation 18 (L) 20 - 50 % [facility] Specimen Anatomical Collection Method Collection Time Receive d Time (Source) Location / / Volume Laterality Blood specimen 08/18/2018 9:46 AM 019 (specimen) EDT 10:01 AM EDT Resulting Agency Comment Spec In Lab Noemy Grant APRN CHEMISTRY ORDERABLES Performing Organization Address City/[facility]/[place] [address] Ferritin (08/18/2018 9:46 AM EDT) athologist Signature Ferritin 279 30 - 400 [place] ng/mL [facility] Comment: Pediatric reference ranges not verified at [facility], interpret with caution. Reference [...] Grant APRN CHEMISTRY ORDERABLES Performing Organization Address City/[facility]/[place] [address] (ABNORMAL) Iron and TIBC (04/21/2018 9:51 AM EST) athologist Signature Iron 60 45 - 160 [place] mcg/dL [facility] TIBC 386 250 - 450 [facility] JUVENTINO mcg/dL [facility] Iron Saturation 16 (L) 20 - 50 % [facility] Specimen Anatomical Collection Method Collection Time Receive d Time (Source) Location / / Volume Laterality Blood specimen 04/21/2018 9:51 AM 018 (specimen) EST 10:06 AM EST Resulting Agency Comment Spec In Lab Karen Montejo Brittney VARGAS CHEMISTRY ORDERABLES Performing Organization Address City/[facility]/[place] [address] Ferritin (04/21/2018 9:51 AM EST) athologist Signature Ferritin 128 30 - 400 [facility] JUVENTINO ng/mL [facility] Comment: Pediatric reference ranges not verified at [facility], interpret with caution. Reference ranges for females greater kayleigh n 50 years of age approach values for men, i.e., 30-400 ng/mL. Specimen Anatomical Collection Method Collection Time Receive d Time (Source) Location / / Volume Laterality Blood specimen 04/21/2018 9:51 AM 018 (specimen) EST 10:06 AM EST Resulting Agency Comment Spec In Lab Karen Montejo Brittney VARGAS CHEMISTRY ORDERABLES Performing Organization Address City/[facility]/[place] [address] (ABNORMAL) Comprehensive metabolic panel (non-fasting) (04/21/2018 9:51 AM EST) athologist [facility] Glucose Lvl 169 65 - 199 [facility] mg[facility]dL [facility] Comment: Diabetes: >=200 mg/dL plus symp toms BUN 62 (H) 10 - 20 mg/dL [facility] Creatinine 2.12 (H) 0.80 - 1.50 mg/dL [facility] Sodium 140 135 - 145 mmol/L [facility] Potassium 4.5 3.5 - 5.0 mmol/L [facility] Comment: Please note: ??Patients with WBC >100,00 0 may have falsely elevated Potassium levels. ??For accurate Potassium quantif ication in these patients send serum separator tube (gold top) for subsequent determinations. ??Contact the Clinical Chemistry Laboratory if there are any qu estions. Chloride 107 98 - 107 mmol/L [facility] CO2 20 (L) 22 - 31 mmol/L [facility] Anion Gap 13 5 - 15 mmol/L [facility] Calcium 9.3 8.5 - 10.5 mg/dL [facility] Total Protein 7.5 6.1 - 8.0 gm/dL [facility] Albumin 3.8 3.2 - 5.2 gm/dL [facility] AST 18 0 - 39 unit/L [facility] ALT 15 0 - 55 unit/L [facility] Alk Phos 121 (H) 40 - 120 unit/L [facility] Total Bilirubin 0.4 0.2 - 1.3 mg/dL [facility] Estimated GFR 33 (L) >=60 mL/min/1.73 m?? [facility] Comment: The eGFR was calculated using the CKD-EP I equation. As with all creatinine based estimates of kidney function, eGFR values calculated with the CKD-EPI equation are not accurate in patients wi th acute kidney failure, extremes of body mass or the acutely ill. [email or web address] [place] [place] eGFR 38 (L) >=60 mL/min/1.73 m?? [facility] Comment: The eGFR was calculated using the CKD-EP I equation. As with all creatinine based estimates of kidney function, eGFR values calculated with the CKD-EPI equation are not accurate in patients wi th acute kidney failure, extremes of body mass or the acutely ill. [email or web address] [place] [place] Specimen Anatomical Collection Method Collection Time Receive d Time (Source) Location / / Volume Laterality Blood specimen 04/21/2018 9:51 AM 018 (specimen) EST 10:06 AM EST Resulting Agency Comment Spec In Lab Karen Lugo APRN CHEMISTRY ORDERABLES Performing Organization Address City/State/ZIP [place] [address] documented in this encounter Visit Diagnoses Diagnosis Bicytopenia Other specified diseases of blood and bl ood-forming organs Iron deficiency anemia, unspecified iron deficiency anemia type Stage 3 chronic kidney disease documented in this encounter Care Teams Pmp Project Manager Relationship Specialty Start Date End Date Jazmine Baer MD PCP - General 11/07/10 [address] [place] [address] documented as of this encounter
--- OUTSIDE RECORDS SUMMARY | 2022-04-11 10:49 | XMS_ITS | Encounter Summary ---
:1960 Author Organization [employer] [place] [address] Care Team Providers Name Role Phone Jazmine Baer MD Primary Care Provider Encounter Details Date Type Department Care Team Description 04/17/2018 Hospital Encounter [place] [facility] [place] Simeon MD Liver cirrhosis [facility] secondary to [facility] [address] [place] GASTRO[place]OLOGY [address] [place], [place] [phone] [facility] Social History Tobacco Use Types Packs/Day Years [...] [facility] RHEUMATOLOGY [place], [place] [address] (Wo rk) Scheduled Procedures Name Priority Associated Diagnoses Date/Time EGD, UPPER GI ENDOSCOPY Family hx of colon cance r COLONOSCOPY, DIAGNOSTIC Family hx of colon cance r documented as of this encounter Procedures Procedure Name Priority Date/Time Associated Diagnosis Comme nts US ABDOMEN COMPLETE Routine 04/17/2018 9:55 AM Liver cirrhosis Results for this WITH VASCULAR EST secondary to HORTON procedure are in the results section. documented in this encounter Results US Abdomen Complete With Vascular (04/17/2018 9:55 AM EST) Anatomical Region Laterality Modality Abdomen Ultrasound Specimen (Source) Anatomical Collection Method Collection Time Re ceived Time Location / / Volume Laterality 04/17/2018 9:00 AM EST Impressions 04/17/2018 12:41 PM EST ?Prior imaging: ?? MR ??10/30/2017 a nd mayes US04/11/2017. 1. Hepato-megaly. Coarse echogenic hepa tic parenchyma with a slightly nodular capsule. Previously noted hemangioma is not visualized on current examination which may related to limitations due to patient body habitus. Cholelithiasis multiple shadowing galls tones. CBD 6 mm. 2. Splenomegaly overall volume 566 cc. 3. Normal appearing right and left kidn ey. Left kidney demonstrates a small cyst 1.5 x 1.7 cm with a thin septation. 4. ??Abdominal aorta nondilated proxima l mid portion. 5. No ascites. ? Kimi govea MD Electronically Signed Final Report ?? 12:41 pm Narrative 04/17/2018 12:41 PM EST Abdominal Duplex ?(Signed Final 04/17/2018 12:41 pm) PATIENT INFO: ID #: ? [id number] ? : [birth year] (58 yrs) Name: ? BUCKY BETH ?Visit Date:04/17/2018 09:00 am PERFORMED BY: Performed By: ? Jazmine Ochoa RDMS Attending: ?Maulik FONSECA, There J. Referred By: ?JEREMY SIMEON Location: ? [place] SERVICE(S) PROVIDED: ??UABDCVASC - Abdominal Complete Survey with Vascular - [id number], [id number] ??[id number] INDICATIONS: ??HORTON cirrhosis and CKD, screen for he patoma and ??signs of portal hypertension; known s table hepatic ??hemangioma and pancreatic cyst COMPARISON: MR: 10/30/17; US: 04/11/17; 03/06/16 HEPATIC-PORTAL DUPLEX: ? PSV ? ED V ? RI ?Waveform ? (cm/s) ??(cm/s) Hepatic Artery: ?? 80.2 ?17.0 ? 0.8 ?Patent Right Hepatic ? Patent Vein: Middle Hepatic ?Patent Vein: Left Hepatic ?Patent Vein: Main Portal ? 31.8 ?Patent Vein: Right Portal ?Patent where seen Vein: Left Portal Vein: ? Patent ?Dire ction of Flow Main Portal ?Hepatopeta l Vein: Collaterals: ??Recanalized umbilical ve in ---- IVC: ---- Proximal portion, normal in caliber ------ LIVER: ------ Right Lobe Length: ?? 19.9 ?? cm Echogenicity/Echotexture: ?? Coarse ech ogenic parenchyma with ? slightly nodular capsule. -------- Lesions: -------- ??# ?Date ?Location ? Description ? L ? AP ?TV (cm) ??1 ?03/06/16 ?Right lobe ?? He mangioma ? 1.6 ?1.3 ? 1.5 ??1 ?02/11/15 ?Right lobe ?? He mangioma ? 1.8 ?1.4 ? 1.4 ??1 ?08/10/14 ?Right lobe ? Hemangioma ?1.9 ?1.7 ? 1.6 Comment: ?Hemangioma not visualized on today's ? ultrasound due to pat ient body habitus. ------- SPLEEN: ------- Size (cm) ? L: 19.9 ?AP: ??8 .1 ? TV: ??6.7 Vol (ml): ?565.5 Comment: ?Splenomegaly ------ AORTA: ------ Measurements (cm): Proximal ?AP: ??2.1 Mid ? AP: ??2.1 Comment: ?Normal in caliber where v isualized. RIGHT KIDNEY: Size (cm) ? L: 12.8 Cortical Thickness: ?Normal Cortical Echogenicity: ?? Normal Hydronephrosis: ?No sonogr aphic evidence LEFT KIDNEY: Size (cm) ? L: 11.9 Cortical Thickness: ?Normal Cortical Echogenicity: ?? Normal Hydronephrosis: ?No sonogr aphic evidence Comment: ?Inferior pole cyst with t hin septation measuring ? 1.5 x 0.8 x 1.7 cm. GALLBLADDER: Cholelithiasis: ?Multiple gallst ones Wall Thickness: ?3. mm Focal Tenderness: ?Negative sonogra phic Morgan's sign BILIARY TRACT: Intrahepatic Ducts: ?? Normal Extrahepatic Ducts: ?? Normal Common Duct Size: ? 6.0 ? mm --------- PANCREAS: --------- Head: ? Poorly visua lized due to overlying bowel Tail: ? Not visualiz ed due to overlying bowel Body: ? Poorly visua lized due to overlying bowel FLUID COLLECTIONS: No ascites seen in all 4 quadrants of t he abdomen. Procedure Note Kimi Willingham MD - 04/17/2018Forma tting of this note might be different from the original. Abdominal Duplex (Signed Final 04/17/20 12:41 pm) PATIENT INFO: ID #: [id number] : [birth year] (58 y rs) Name: BUCKY BETH Visit Date:04/17 09:00 am PERFORMED BY: Performed By: Jazmine Ochoa RDMS Attending: Kimi Willingham MD Referred By: JEREMY SIMEON Location: [place] SERVICE(S) PROVIDED: UABDCVASC - Abdominal Complete Survey w [facility] Vascular - [id number], [id number] INDICATIONS: HORTON cirrhosis and CKD, screen for hepa josé luis and signs of portal hypertension; known sta ble hepatic hemangioma and pancreatic cyst COMPARISON: MR: 10/30/17; US: 04/11/17; 03/06/16 HEPATIC-PORTAL DUPLEX: PSV EDV RI Waveform (cm/s) (cm/s) Hepatic Artery: 80.2 17.0 0.8 Patent Right Hepatic Patent Vein: Middle Hepatic Patent Vein: Left Hepatic Patent Vein: Main Portal 31.8 Patent Vein: Right Portal Patent where seen Vein: Left Portal Vein: Patent Direction of Flow Main Portal Hepatopetal Vein: Collaterals: Recanalized umbilical vein ---- IVC: ---- Proximal portion, normal in caliber ------ LIVER: ------ Right Lobe Length: 19.9 cm Echogenicity/Echotexture: Coarse echoge idalmis parenchyma with slightly nodular capsule. -------- Lesions: -------- # Date Location Description L AP TV (cm ) 1 03/06/16 Right lobe Hemangioma 1.6 1. 3 1.5 1 02/11/15 Right lobe Hemangioma 1.8 1. 4 1.4 1 08/10/14 Right lobe ?? Hemangioma 1.9 1.7 1.6 Comment: Hemangioma not visualized on [facility]'s ultrasound due to patient body habitus. ------- SPLEEN: ------- Size (cm) L: 19.9 AP: 8.1 TV: 6.7 Vol (ml): 565.5 Comment: Splenomegaly ------ AORTA: ------ Measurements (cm): Proximal AP: 2.1 Mid AP: 2.1 Comment: Normal in caliber where visual ized. RIGHT KIDNEY: Size (cm) L: 12.8 Cortical Thickness: Normal Cortical Echogenicity: Normal Hydronephrosis: No sonographic evidence LEFT KIDNEY: Size (cm) L: 11.9 Cortical Thickness: Normal Cortical Echogenicity: Normal Hydronephrosis: No sonographic evidence Comment: Inferior pole cyst with thin s eptation measuring 1.5 x 0.8 x 1.7 cm. GALLBLADDER: Cholelithiasis: Multiple gallstones Wall Thickness: 3. mm Focal Tenderness: Negative sonographic Morgan's sign BILIARY TRACT: Intrahepatic Ducts: Normal Extrahepatic Ducts: Normal Common Duct Size: 6.0 mm --------- PANCREAS: --------- Head: Poorly visualized due to overlyin g bowel Tail: Not visualized due to overlying b owel Body: Poorly visualized due to overlyin g bowel FLUID COLLECTIONS: No ascites seen in all 4 quadrants of t he abdomen. IMPRESSION Prior imaging: MR 10/30/2017 and mayes US1 06/11/2016. 1. Hepato-megaly. Coarse echogenic hepa tic parenchyma with a slightly nodular capsule. Previously noted hemangioma is not visualized on current examination which may related to limitations due to patient body habitus. Cholelithiasis multiple shadowing galls tones. CBD 6 mm. 2. Splenomegaly overall volume 566 cc. 3. Normal appearing right and left kidn ey. Left kidney demonstrates a small cyst 1.5 x 1.7 cm with a thin septation. 4. Abdominal aorta nondilated proximal mid portion. 5. No ascites. Kimi Willingham MD Electronically Signed Final Report 04/17 12:41 pm Jeremy Simeon MD [facility] GEN ORDERABLES documented in this encounter Visit Diagnoses Diagnosis 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 Other chronic nonalcoholic liver disease documented in this encounter Care Teams Mexican Food Machine Tender Relationship Specialty Start Date End Date Jazmine Baer MD PCP - General 11/07/10 [address] [place] [address] documented as of this encounter
--- OUTSIDE RECORDS SUMMARY | 2022-04-11 10:49 | XMS_ITS | Encounter Summary ---
:1960 Author Organization [facility] [address] Care Team Providers Name Role Phone Jazmine Baer MD Primary Care Provider Reason for Visit Reason Comments Follow-up Encounter Details Date Type Department Care Team Description 02/16/2019 Office Visit Hematology and Anastasia Ignacio MD [facility] DR HEMATOLOGY/[place] [address] Bicytopenia; Oncology at [facility] Karen Lugo [facility] DR HEMATOLOGY/[place] [address] Iron deficiency anemia due to chronic bl ood loss [facility] Noemy Grant APRN [facility] DR HEMATOLOGY[place] [address] Jc Howard MD [facility] DR HEMATOLOGY/[place] [address] [place] [id number] Social History Tobacco Use Types Packs/Day Years Used Date Never Smoker Smokeless Tobacco: Never Used Alcohol Use Standard Drinks/Week Comments No 0 (1 standard drink = 0.6 oz pure alcoho l) Sex Assigned at Date Recorded Not on file documented as of this encounter Last Filed Vital Signs Vital Sign Reading Time Taken Comments Blood Pressure 159/63 02/16/2019 10:07 AM EDT Pulse 62 02/16/2019 10:07 AM EDT Temperature 36.7 ??C (98.1 ??F) 02/16/2019 10:07 AM EDT Respiratory Rate 15 02/16/2019 10:07 AM EDT Oxygen Saturation 98% 02/16/2019 10:07 AM EDT Inhaled Oxygen Concentration - - Weight 128 kg (282 lb 3.2 oz) 02/16/2019 10:07 AM EDT Height 175.3 cm (5' 9) 02/16/2019 10:07 AM EDT Body Mass Index 41.67 02/16/2019 10:07 AM EDT documented in this encounter Progress Notes Karen Lugo, [employer] - 02/16/2019 10:45 AM EDT [place] [address] HEMATOLOGY/BMT CONSULTATION VISIT NOTE Chief Complaint: Bucky [...] had been evaluated by Dr Evangelista at [facility] in 2012 for anemia and thrombocytopenia. [...] changes to his baseline health. No fevers, chill, recurrent infections. No drenching sweats, unintentional weight loss, abnormal bleeding or excessive bruising. He continues to receive solumedrol and IVIG per Rheumatology once a month for myopathy which he tolerates well. In addition, he is scheduled to receive monthly Venofer 300mg for iron saturation < 20 and twice a month Aranesp 60mcg injections for Hgb < 12gm/dL at the infusion clinic at [facility] [new orders sent today] . He notes that he has not required iron supp lementation for the past few months based on labs. No new health-related concerns. Review of Systems: [...] though admits to CALDERON when walking uphill or up stairs [unchnaged] Gastrointestinal --Appetite: varies, not always hungry, not uncommon to skip lunch --Early satiety: No --Nausea/vomiting/diarrhea/constipation: occasional nausea a few times a month which responds to Zofran --Melena/Hematochezia: No Genitourinary --Dysuria or hematuria: No Musculoskeletal --Muscle pain or weakness: no focal pain though continues to describe generalized muscle weakness improved with solumedrol and IVIG infusions --Joint pain or swelling: No Immune System --Recent infections: No Hematology/Lymph --Bruising/bleeding/melena: No --Enlarged nodes or other masses: No Skin --Rashes or petechiae: No Neuro --Numbness/tingling: intermittent PN affecting bilateral LE --Headache/dizziness: occasional, sometimes associated with hypoglycemic episodes [a few times a month] --lightheadedness: with position change but no syncope Other ROS: All negative Past Medical History Past Medical History: Diagnosis Date ??? Cirrhosis ??? Diabetes ??? DM II (diabetes mellitus, type II), controlled ??? Gout ??? Hyperlipidemia ??? Hypertension ??? Kidney stone ??? 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 Obesity ??? Shingles 2010 Medications: ??? epoetin matt (PROCRIT INJ) ??? metoprolol [...] Itching and Rash ??? Morphine Itching ??? Qibxuic-Xis-Uzv Reductase Inhibitors Myopathy INTERIM SOCIAL HISTORY: Changes in job, home situation, tobacco or alcohol use since last visit: None CHANGES IN RELEVANT FAMILY HISTORY: None Physical Exam VITAL SIGNS: BP 159/63 (Patient Position: Sitting) Pulse 62 Temp 36.7 ??C (98.1 ??F) (Temporal) Resp 15 Ht 175.3 cm (5' 9) Wt 128 kg (282 lb 3.2 oz) SpO2 98% BMI 41.67 kg/m?? GENERAL: Bucky Beth is a well-appearing 58 y.o. male in no acute distress. NEUROLOGICAL: Alert and oriented to person, place and time. Full exam not performed today Laboratory: Results for BUCKY BETH ( ) as of 02/16/2019 14:27 Ref. Range 02/16/2019 09:38 WBC Latest Ref Range: 4.0 - 9.5 x10(3)/mcL 3.5 (L) RBC Latest Ref Range: 4.58 - 5.54 x10(6)/mcL 3.36 (L) Hemoglobin Latest Ref Range: 13.7 - 16.5 gm/dL 10.8 (L) Hematocrit Latest Ref Range: 40.5 - 48.5 % 33.8 (L) MCV Latest Ref Range: 82.9 - 93.1 fL 100.6 (H) MCH Latest Ref Range: 27.5 - 32.1 pg 32.1 MCHC Latest Ref Range: 32.0 - 35.7 gm/dL 32.0 RDWSD Latest Ref Range: 36.0 - 45.0 fL 60.0 (H) RDWCV Latest Ref Range: 11.4 - 13.8 % 16.1 (H) Platelets Latest Ref Range: 145 - 357 x10(3)/mcL 56 (L) MPV Latest Ref Range: 7.6 - 12.9 fL 11.7 nRBC % Auto Latest Units: % 0.0 nRBC Abs Auto Latest Ref Range: 0.000 - 0.000 x10(3)/mcL 0.000 Neutr Abs (ANC) Latest Ref Range: 1.70 - 6.10 x10(3)/mcL 2.30 Neutrophils % Latest Units: % 65.0 Immature Gran % Latest Units: % 0.30 Lymphocytes % Latest Units: % 15.8 Monocytes % Latest Units: % 8.2 Eosinophils % Latest Units: % 9.9 Basophils % Latest Units: % 0.8 Tamara Gran Abs Latest Ref Range: 0.00 - 0.04 x10(3)/mcL 0.01 Lymphocytes Abs Latest Ref Range: 0.9 - 3.2 x10(3)/mcL 0.6 (L) Monocyte Abs Latest Ref Range: 0.3 - 0.9 x10(3)/mcL 0.3 Eosinophils Abs Latest Ref Range: 0.0 - 0.4 x10(3)/mcL 0.4 Basophils Abs Latest Ref Range: 0.0 - 0.1 x10(3)/mcL 0.0 Sodium Latest Ref Range: 135 - 145 mmol/L 140 Potassium Latest Ref Range: 3.5 - 5.0 mmol/L 4.4 Chloride Latest Ref Range: 98 - 107 mmol/L 108 (H) CO2 Latest Ref Range: 22 - 31 mmol/L 20 (L) Anion Gap Latest Ref Range: 5 - 15 mmol/L 12 BUN Latest Ref Range: 10 - 20 mg/dL 37 (H) Creatinine Latest Ref Range: 0.80 - 1.50 mg/dL 1.50 eGFR Latest Ref Range: >=60 mL/min/1.73 m?? 50 (L) eGFR Latest Ref Range: >=60 mL/min/1.73 m?? 58 (L) Glucose Lvl Latest Ref Range: 65 - 199 mg/dL 197 Calcium Latest Ref Range: 8.5 - 10.5 mg/dL 9.0 Hemoglobin A1C Latest Ref Range: 4.3 - 5.6 % 7.0 (H) Est Avg Gluc Latest Units: mg/dL 153 Total Protein Latest Ref Range: 6.1 - 8.0 gm/dL 7.7 Albumin Latest Ref Range: 3.2 - 5.2 gm/dL 3.5 Total Bilirubin Latest Ref Range: 0.2 - 1.3 mg/dL 0.4 Alk Phos Latest Ref Range: 40 - 130 unit/L 117 AST Latest Ref Range: 0 - 39 unit/L 18 ALT Latest Ref Range: 0 - 55 unit/L 15 Iron Latest Ref Range: 45 - 160 mcg/dL 46 TIBC Latest Ref Range: 250 - 450 mcg/dL 309 Iron Saturation Latest Ref Range: 20 - 50 % 15 (L) Radiology: No new images reviewed today [...] 4 doses of Venofer 300 mg at [facility] - where he already is receiving his IVIg. --continues once a month Venofer maintenance infusion for LONNIE [iron saturation may be better to follow than ferritin given chronic inflammatory process]. His iron saturation is < 20 so he will receive Venofer as scheduled later his month. --Epo level inappropriately low for Hgb in the setting of CKD, Aranesp 60mcg SQ injection qoweekly for Hgb < 12gm/dL 2. 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 No clinically significant bleeding. Platelet count remains stable without clinical consequences. 3. Follow-up - Continue qmonth Venofer 300mg for iron saturation < 20 and Aranesp 60mcg SQ injection q2 weeks for Hgb < 12gm/dL locally at the infusion suite at [facility] for patient convenience - We will arrange for Bucky to RTC in approximately 6 months - General medical care and age appropriate health screening remain under the direction of Dr. Baer. - Bucky was reminded that we remain available in the interim should questions/concerns arise. Karen Lugo, MSN, [employer] Nurse Practitioner Section of Hematology/Oncology Copies Jazmine Baer MD Karen Lugo APRN - 02/16/2019 10:45 AM EDT Date: 02/16/2019 Patient Name: Bucky Beth : 1960 Diagnosis: Iron deficiency anemia, anemia of renal insufficiency Referral to [site]: [facility] Lab orders: ?? CBC, creatinine q2 weeks; iron saturation q4 weeks Infusion Orders: ?? Aranesp 60mcg SQ injection q2 weeks for for Hgb < 12 ?? Venofer 300mg IV every 4 weeks x 6 for iron saturation < 20 Signature: Karen Lugo, MSN, [employer] beeper # [id number] Co-signature [if needed]: documented in this encounter Plan of Treatment Upcoming Encounters Date Type Specialty Care Team Description 06/19/2022 Office Visit Rheumatology InserRichi cuellar MD [facility] DR RHEUMATOLOGY [place], [place] [address] (Wo rk) Scheduled Procedures Name Priority Associated Diagnoses Date/Time EGD, UPPER GI ENDOSCOPY Family hx of colon cance r COLONOSCOPY, DIAGNOSTIC Family hx of colon cance r documented as of this encounter Results Iron and TIBC (08/17/2019 10:11 AM EDT) athologist Signature Iron 59 45 - 160 [facility] TIBC 282 250 - 450 [facility] mcg/dL [facility] Iron Saturation 21 20 - 50 % [facility] Specimen Anatomical Collection Method Collection Time Receive d Time (Source) Location / / Volume Laterality Blood specimen 08/17/2019 10:11 0 (specimen) AM EDT 10:27 AM EDT Resulting Agency Comment Spec In Lab Karen Lugo APRN CHEMISTRY ORDERABLES Performing Organization Address City/State/ZIP [place] [address] (ABNORMAL) Ferritin (08/17/2019 10:11 AM EDT) athologist Signature Ferritin 565 (H) 30 - 400 [place] ng/mL [facility] Comment: Pediatric reference ranges not verified at [facility], interpret with caution. Reference ranges for females [...] Organization Address City/State/ZIP [place] [address] (ABNORMAL) Comprehensive metabolic panel (non-fasting) (08/17/2019 10:11 AM EDT) athologist Signature Glucose Lvl 104 65 - 199 [facility] mg/dL [facility] Comment: Diabetes: >=200 mg/dL plus symp toms BUN 43 (H) 10 - 20 mg/dL [facility] Creatinine 1.41 0.80 - 1.50 mg/dL [facility] Sodium 139 135 - 145 mmol/L [facility] Potassium 4.5 3.5 - 5.0 mmol/L [facility] Comment: Please note: ??Patients with WBC >100,00 0 may have falsely elevated Potassium levels. ??For accurate Potassium quantif ication in these patients send serum separator tube (gold top) for subsequent determinations. ??Contact the Clinical Chemistry Laboratory if there are any qu estions. Chloride 104 98 - 107 mmol/L [facility] CO2 25 22 - 31 mmol/L [facility] Anion Gap 10 5 - 15 mmol/L [facility] Calcium 9.3 8.5 - 10.5 mg/dL [facility] Total Protein 8.6 (H) 6.1 - 8.0 gm/dL [facility] Albumin 3.5 3.2 - 5.2 gm/dL [facility] AST 31 0 - 39 unit/L [facility] ALT 28 0 - 55 unit/L [facility] Alk Phos 107 40 - 130 unit/L [facility] Total Bilirubin 0.6 0.2 - 1.3 mg/dL [facility] Estimated GFR 53 (L) >=60 mL/min/1.73 m?? [facility] Comment: The eGFR was calculated using the CKD-EP I equation. As with all creatinine based estimates of kidney function, eGFR values calculated with the CKD-EPI equation are not accurate in patients wi th acute kidney failure, extremes of body mass or the acutely ill. http://[employer]/[facility] e[facility] 62 >=60 mL/min/1.73 m?? [facility] Comment: The eGFR was calculated using the CKD-EP I equation. As with all creatinine based estimates of kidney function, eGFR values calculated with the CKD-EPI equation are not accurate in patients wi th acute kidney failure, extremes of body mass or the acutely ill. 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
--- OUTSIDE RECORDS SUMMARY | 2022-04-11 10:49 | XMS_ITS | Encounter Summary ---
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 His average glucose is 125 mg/dL. He is above 180mg/dL 16% of the time, in target range (70-180) 60%of the time, and below 70mg/dL 24% of the time. Review of his daily patterns suggests that his low BG levels occur between 0600 and 0800 typically. His higher BG levels occur between 1400 and 1800. Pt's daily glucose summary May 12-May 19 again highlighted the risk of low BG between 0600 and 0800 and high BG between 1400 and 1800. On May 20, pt received IVIG and solumedrol. He again received IVIG and solumedrol on May 21. These medications resulted in roughly 24 hours of BG spent near 350 continuously. , May 23, pt returned to his pattern of low BG between 0600 and 0800. Medication salcido, pt regularly uses humalog 40U at 0700 with glipizide 10mg, lantus 35U. He then uses 40U of humalog at lunch and dinner. Pt then uses 80U of glargine at bed time. Despite increasing his glargine to 70U from 35U on the of and , highs occurred for 24 hours as noted above. A/P: Decrease insulin glargine to 60U nightly except for night prior to the IVIG and solumedrol. Carbohydrate intake at lunch and dinner need to be reduced or meal associated insulin needs to be increased. Samantha Dietz MD PGY-4 [facility] [place] Fellow Pager #[phone] Slade Betancourt MD - 06/05/2018 11:36 AM EST Slade Betancourt MD - 06/05/2018 11:36 AM EST documented in this encounter Plan of Treatment Upcoming Encounters Date Type Specialty Care Team Description 06/19/2022 Office Visit Rheumatology Richi Blackmon MD [facility] RHEUMATOLOGY [place], [place] [address] (Wo rk) Scheduled Procedures Name Priority Associated Diagnoses Date/Time EGD, UPPER GI ENDOSCOPY Family hx of colon cance r COLONOSCOPY, DIAGNOSTIC Family hx of colon cance r documented as of this encounter Visit Diagnoses Diagnosis 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
--- OUTSIDE RECORDS SUMMARY | 2022-04-11 10:49 | XMS_ITS | Encounter Summary ---
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 Rhiannon Headley MD [facility] Rad Mri Procedures MRI Abdomen wwo Contrast (Generic) [facility] [place] [address] [place] [address] Referral ID Status Reason Start Date Expiration Date Visits V isits Requested Authorized [id number] Closed Specialty 03/03/2019 03/02/2020 1 1 Service Requested Reason for Visit Diagnostic Test (Routine) - Closed Specialty Diagnoses / Procedures Referred By Contact Refer red To Contact Radiology Diagnoses 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 Rhiannon Headley MD [facility] Rad Mri Procedures MRI Abdomen wwo Contrast (Generic) [place] [address] [place] [address] Referral ID Status Reason Start Date Expiration Date Visits V isits Requested Authorized [id number] Closed Specialty 03/03/2019 03/02/2020 1 1 Service Requested Encounter Details Date Type Department Care Team Description 03/31/2019 [place] [facility]iannon Headley MD [facility] secondary to [facility] [address] [place], [place] GASTROENTEROLOGY [address] SHAKIRA FRANCIS [phone] [facility] Social History Tobacco Use Types Packs/Day [...] Visit Rheumatology Richi Blackmon MD [facility] ER DR RHEUMATOLOGY [place], [place] [address] (Wo rk) Scheduled Procedures Name Priority Associated Diagnoses Date/Time EGD, UPPER GI ENDOSCOPY Family hx of colon cance r COLONOSCOPY, DIAGNOSTIC Family hx of colon cance r documented as of this encounter Procedures Procedure Name Priority Date/Time Associated Diagnosis Comme nts MRI ABDOMEN WWO Routine 03/31/2019 9:22 AM Liver cirrhosis Res ults for this CONTRAST EDT secondary to HORTON procedure are in the results section. documented in this encounter Results MRI Abdomen wwo Contrast (Generic) (03/31/2019 9:22 AM EDT) Anatomical Region Laterality Modality Abdomen Magnetic Resonance Specimen (Source) Anatomical Location Collection Method / Collectio n Time Received Time / Laterality Volume Impressions 03/31/2019 11:45 AM EDT 1. ??No suspicious liver lesions. 2. ??Hepatosplenomegaly without ascites or large varices. 3. ??1.4 cm pancreatic cyst without worr isome features. Consider follow-up MRI abdomen in 1 year to assess for interval enlargement or change in morphology. Alternatively, if patient is to be follo wed with MRIs of the liver for cirrhosis, the cyst may be assessed at t hat time. 4. ??Small hepatic hemangioma as detaile d above. LI-RADS Categories: LR-TIV = Tumor in vein LR-5 = Definitely hepatocellular carcino ma (concordant with OPTN 5) LR-4 = Probably hepatocellular carcinoma LR-3 = Intermediate probability for hepa tocellular carcinoma LR-2 = Probably benign LR-1 = Definitely benign LR-TR Viable = Treated, probably or defi nitely viable LR-TR Equivocal = Treated, equivocal via ble LR-TR Nonviable = Treated, probably or d efinitely not viable LR-TR Nonevaluable = Treated, Response n ot evaluable (due to image omission or degradation) LR-M = Probably or definitely malignant but not HCC specific LR-NC = Not categorizable (due to image omission or degradation) NOTE: LI-RADS categories should be inter preted in the context of other available data, such as biomarkers and the patient 's prior probability of developing or having hepatocellular carcinoma. The LI- RADS / OPTN classification of liver lesions has been adopted to standardize CT and MRI scan reporting in patients at risk for hepatocellular carcinoma. The i maging criteria for definite hepatocellular carcinoma are concordant for the LI-RADS and OPTN systems. LI-RADS criteria and documentation are a vailable online at https://www.acr.org/Clinical-Resources/R wusotbzv-omi-Ydbq-Systems/LI-RADS. This report utilizes LI-RADS version 2018. Thank you for letting us participate in the care of this patient. For questions regarding this report, please contact e number below. ? Narrative 03/31/2019 11:45 AM EDT EXAMINATION: MRI ABDOMEN WWO CONTRAST (GENERIC) CLINICAL HISTORY: cirrhosis screen for v arices TECHNIQUE: MRI of the abdomen was perfor med with images obtained prior to and following the intravenous administration of 26ml of Dotarem using the dynamic liver protocol. COMPARISONS: MRI abdomen on 10/30/2017 FINDINGS: Prior hepatic interventions: None. Liver Morphology: The liver is large marilyn suring 20 cm in craniocaudal dimension. No diffuse or geographic areas of signal loss are present on T1 out of phase images. Focal hepatic lesions: As on previous st udies, in segment 5, there is a 1.3 cm T2 hyperintense progressively enhancing focus consistent with a hemangioma. No suspicious liver lesions are present. Portal Vein: Widely Patent. Varices: There is recanalization of the umbilical vein. No large gastroesophageal varices are seen. Ascites: None. Spleen: The spleen is large measuring 18 cm in craniocaudal dimension. Bile ducts: Nondilated. Gallbladder: Cholelithiasis without chol ecystitis. Pancreas: There is a 14 mm cyst in the m id pancreatic body (series 3 image 29) which does not appear to connect with th e adjacent nondilated main pancreatic duct. No mural enhancement or nodularity is present. Adrenals: Normal. Kidneys: The kidneys are symmetric and n ormal in size with prompt symmetric enhancement. There are scattered simple cysts the largest of which measures 2 cm in Aorta: No aneurysm. Lymph nodes: No enlarged lymph nodes. Bowel: Nondilated, no inflammatory sosa es. Marrow Signal: Normal. Procedure Note Luiz Rodriguez MD - 03/31/2019Form atting of this note might be different from the original. EXAMINATION: MRI ABDOMEN WWO CONTRAST (G ENERIC) CLINICAL HISTORY: cirrhosis screen for v arices TECHNIQUE: MRI of the abdomen was perfor med with images obtained prior to and following the intravenous administration of 26ml of Dotarem using the dynamic liver protocol. COMPARISONS: MRI abdomen on 10/30/2017 FINDINGS: Prior hepatic interventions: None. Liver Morphology: The liver is large marilyn suring 20 cm in craniocaudal dimension. No diffuse or geographic areas of signal loss are present on T1 out of phase images. Focal hepatic lesions: As on previous st udies, in segment 5, there is a 1.3 cm T2 hyperintense progressively enhancing focus consistent with a hemangioma. No suspicious liver lesions are present. Portal Vein: Widely Patent. Varices: There is recanalization of the umbilical vein. No large gastroesophageal varices are seen. Ascites: None. Spleen: The spleen is large measuring 18 cm in craniocaudal dimension. Bile ducts: Nondilated. Gallbladder: Cholelithiasis without chol ecystitis. Pancreas: There is a 14 mm cyst in the m id pancreatic body (series 3 image 29) which does not appear to connect with th e adjacent nondilated main pancreatic duct. No mural enhancement or nodularity is present. Adrenals: Normal. Kidneys: The kidneys are symmetric and n ormal in size with prompt symmetric enhancement. There are scattered simple cysts the largest of which measures 2 cm in Aorta: No aneurysm. Lymph nodes: No enlarged lymph nodes. Bowel: Nondilated, no inflammatory sosa es. Marrow Signal: Normal. IMPRESSION 1. No suspicious liver lesions. 2. Hepatosplenomegaly without ascites or large varices. 3. 1.4 cm pancreatic cyst without worris ome features. Consider follow-up MRI abdomen in 1 year to assess for interval enlargement or change in morphology. Alternatively, if patient is to be follo wed with MRIs of the liver for cirrhosis, the cyst may be assessed at t hat time. 4. Small hepatic hemangioma as detailed above. LI-RADS Categories: LR-TIV = Tumor in vein LR-5 = Definitely hepatocellular carcino ma (concordant with OPTN 5) LR-4 = Probably hepatocellular carcinoma LR-3 = Intermediate probability for hepa tocellular carcinoma LR-2 = Probably benign LR-1 = Definitely benign LR-TR Viable = Treated, probably or defi nitely viable LR-TR Equivocal = Treated, equivocal via ble LR-TR Nonviable = Treated, probably or d efinitely not viable LR-TR Nonevaluable = Treated, Response n ot evaluable (due to image omission or degradation) LR-M = Probably or definitely malignant but not HCC specific LR-NC = Not categorizable (due to image omission or degradation) NOTE: LI-RADS categories should be inter preted in the context of other available data, such as biomarkers and the patient 's prior probability of developing or having hepatocellular carcinoma. The LI- RADS / OPTN classification of liver lesions has been adopted to standardize CT and MRI scan reporting in patients at risk for hepatocellular carcinoma. The i maging criteria for definite hepatocellular carcinoma are concordant for the LI-RADS and OPTN systems. LI-RADS criteria and documentation are a vailable online at https://www.acr.org/Clinical-Resources/R sosjqvpc-kbw-Bdcd-Systems/LI-RADS. This report utilizes LI-RADS version 2018. Thank you for letting us participate in the care of this patient. For questions regarding this report, please contact e number below. 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 Other chronic nonalcoholic liver disease documented in this encounter Administered Medications Inactive Administered Medications - up to 3 most recent administrations Medication Order MAR Action Action Date Dose Rate Site gadoterate meglumine (DOTAREM) 0.5 Given 03/31/2019 8:50 AM EDT 24 mLs mmol/mL (376.9 mg/mL) injection 0-100 mL 0-100 mL, Intravenous, ONCE PRN, 1 dose, Starting on Sat03/31/19 at 1011, Until Sat03/31/19 at 0850, Per Protocol, Radiology Contrast, Routine documented in this encounter Care Teams College Scouting Coordinator Relationship Specialty Start Date End Date Jazmine Baer MD PCP - General 11/07/10 [address] [place] [address] documented as of this encounter
--- OUTSIDE RECORDS SUMMARY | 2022-04-11 10:49 | XMS_ITS | Encounter Summary ---
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 Rhiannon Headley MD [facility] Rad Mri Procedures MRI Abdomen wwo Contrast (Generic) [facility] [place] [address] [place] [address] Referral ID Status Reason Start Date Expiration Date Visits V isits Requested Authorized [id number] Closed Specialty 03/03/2019 03/02/2020 1 1 Service Requested Encounter Details Date Type Department Care Team Description 03/03/2019 Office Visit [place]enterology [place] [facility] Rhiannon Headley MD Liver cirrhosis [facility] Hilda shafer [facility] [place] [address] [address] [phone] [place] [address] Social History Tobacco Use Types Packs/Day Years Used Date Never Smoker Smokeless Tobacco: Never Used Alcohol Use Standard Drinks/Week Comments No 0 (1 standard drink = 0.6 oz pure alcoho l) Sex Assigned at Date Recorded Not on file documented as of this encounter Last Filed Vital Signs Vital Sign Reading Time Taken Comments Blood Pressure 176/59 03/03/2019 1:39 PM EDT Pulse 66 03/03/2019 1:39 PM EDT Temperature - - Respiratory Rate - - Oxygen Saturation - - Inhaled Oxygen Concentration - - Weight 128.2 kg (282 lb 9.6 oz) 03/03/2019 1:39 PM EDT Height 175.3 cm (5' 9) 03/03/2019 1:39 PM EDT Body Mass Index 41.73 03/03/2019 1:39 PM EDT documented in this encounter Progress Notes Rhiannon Headley MD - 03/03/2019 1:30 PM EDT Gastroenterology and Hepatology Follow Up Note Patient: Bucky Acevedo : 1960 Provider: Rhiannon Headley MD Problem List: Cirrhosis- 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 ?? Metabolic risk factors: HTN, T2DM, Obese, dyslipidemia. No liver biopsy ? Diagnosis of cirrhosis based on liver imaging ?? Serologic work up 06/2013 negative, viral hep negative 2009 ?? 1st presentation- Elevated liver enzymes since 2009 when he was diagnosed with myositis ?? Complicated with transient HE minimal improvement with RIfaximin (01/2014) ?? No ascites or varices ?- Iron deficiency anemia 2016- EGD, colo, video capsule endoscopy negative, bone marrow biopsy X 2 negative 2. Liver Hemangioma 1.6cm ?? 3. DM2- apparently metformin didn't work, was on insulin, then glipizide and insulin 4. HTN 5. Hypertension ?? 6. Myositis- statin induced myoapthy ?-?? Jun 2014-received IVIg x 2days every month and Solumedrol 7. 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 Gout Preventative Health: 1. HAV/HBV: (+)/(-)- received HBV vaccine 2. Colonoscopy - 11/2016 normal 3. Portal HTN: EGD 07/2016 no varices, no gastropathy 4. HCC Surveillance: MRI 10/30/2017: No lesions, +cirrhosis 3. Stable 16 mm right hepatic lobe hemangioma, as seen on prior 06/04/2014 MRI abdomen. No new sonographically evident hepatic mass identified. 4. Stable moderate splenomegaly. No ascites. Interval History: Doing ok. Still getting IVIG Working on diabetes with diabetic specialist- last a1c 7.0. Lantus, humulog and glipizide Getting IV iron every 4 weeks, getting erythropoetin every 2 weeks Current Outpatient Medications Medication Sig Dispense Refill ??? epoetin matt (PROCRIT INJ) Inject 10,000 [...] 40 UNITS SUBCUTANEOUSLY BEFORE MEALS 3 ??? ZeeboTOUCH ULTRA TEST Strip TEST DIRECTED THREE TIMES [...] tablet Take 2 tablets by mouth daily. No current facility-administered medications for this visit. Vitals: 03/03/19 1339 BP: 176/59 Pulse: 66 Weight: 128.2 kg (282 lb 9.6 oz) Height: 175.3 cm (5' 9) Body mass index is 41.73 kg/m??. Lab Results Component Value Date NA 140 02/16/2019 K 4.4 02/16/2019 CL 108 (H) 02/16/2019 CO2 20 (L) 02/16/2019 BUN 37 (H) 02/16/2019 CREATININE 1.50 02/16/2019 GLUCOSE 197 02/16/2019 GLUCFASTING 172 (H) 07/12/2014 CALCIUM 9.0 02/16/2019 ESTGFR 50 (L) 02/16/2019 Lab Results Component Value Date ALT 15 02/16/2019 AST 18 02/16/2019 GGT 124 (H) 05/14/2013 ALKPHOS 117 02/16/2019 BILITOT 0.4 02/16/2019 BILIDIR 0.2 09/19/2016 ALBUMIN 3.5 02/16/2019 PROT 7.7 02/16/2019 Lab Results Component Value Date HA1C 7.0 (H) 02/16/2019 Lab Results Component Value Date WBC 3.5 (L) 02/16/2019 HGB 10.8 (L) 02/16/2019 HCT 33.8 (L) 02/16/2019 MCV 100.6 (H) 02/16/2019 PLATELET 56 (L) 02/16/2019 Exam: Looks well Anicteric Abd- protuberant, non tender Ext- no edema Assessment and Plan: 58 y.o. 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 His liver disease remains reasonably well compensated in that he has no ascites, no encephalopathy, no varices. We discussed management of metabolic risk factors to treat his chronic liver disease. He also has iron deficiency anemia that is unexplained. Bone marrow biopsy in 04/2016 showed decreased iron stores. Recommendations: Iron deficiency- -EGD/capsule/colonoscopy were negative 07/2016 -Continue IV iron per hematology -Anemia in part is likely due to chronic disease HORTON- -Continue to treat diabetes- seeing endocrinology now, control of diabetes is very important in preventing progression of HORTON -Weight loss on low carb diet. -Capac 3 fatty acids for hypertriglyceridemia Cirrhosis- MRI for HCC surveillance- set up now EGD- in 2020 will time with next imaging 6 months after MRI Rhiannon Headley MD Section of Gastroenterology & Hepatology [address] [place] [address] Greater than 50% of this 30 minute visit was spent in discussion. Cc: Jazmine Baer MD documented in this encounter Plan of Treatment Upcoming Encounters Date Type Specialty Care Team Description 06/19/2022 Office Visit Rheumatology Richi Blackmon MD [facility] ER DR RHEUMATOLOGY [place] [phone] (Wo rk) Scheduled Procedures Name Priority Associated Diagnoses Date/Time EGD, UPPER GI ENDOSCOPY Family hx of colon cance r COLONOSCOPY, DIAGNOSTIC Family hx of colon cance r documented as of this encounter Results MRI Abdomen wwo Contrast [...] documentation are a vailable online at https://www.acr.org/Clinical-Resources/R pxzkvckc-fwp-Fkfn-Systems/LI-RADS. This report utilizes LI-RADS version 2018. Thank [...] Focal hepatic lesions: As on previous st ud, in segment 5, there is a 1.3 [...] Focal hepatic lesions: As on previous st ud, in segment 5, there is a 1.3 [...] documentation are a vailable online at https://www.acr.org/Clinical-Resources/R ushjxuxx-fns-Dvfp-Systems/LI-RADS. This report utilizes LI-RADS version 2018. Thank you for letting us participate in the care of this patient. For questions regarding this report, please contact e number below. 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
--- OUTSIDE RECORDS SUMMARY | 2022-04-11 10:49 | XMS_ITS | Encounter Summary ---
:1960 Author Organization [place] [address] Care Team Providers Name Role Phone Jazmine Baer MD Primary Care Provider Encounter Details Date Type Department Care Team Description 09/25/2018 Office Visit Endocrinology at [facility] Slade Betancourt, Type 2 diabetes mellitus wit h diabetic nephropathy, with long- term current use of insulin; [facility] CKD (chronic kidney disease) stage 3, GF R 30-59 ml/[place] [address] CENTER [phone] END[address]PT[address] [place] [address] Social History Tobacco Use Types Packs/Day Years Used Date Never Smoker Smokeless Tobacco: Never Used Alcohol Use Standard Drinks/Week Comments No 0 (1 standard drink = 0.6 oz pure alcoho l) Sex Assigned at Date Recorded Not on file documented as of this encounter Last Filed Vital Signs Vital Sign Reading Time Taken Comments Blood Pressure 150/64 09/25/2018 9:47 AM EDT Pulse 70 09/25/2018 9:47 AM EDT Temperature - - Respiratory Rate - - Oxygen Saturation - - Inhaled Oxygen Concentration - - Weight 122 kg (269 lb) 09/25/2018 9:47 AM EDT Height 175.3 cm (5' 9) 09/25/2018 9:47 AM EDT Body Mass Index 39.72 09/25/2018 9:47 AM EDT documented in this encounter Progress Notes Slade Betancourt MD - 09/25/2018 10:00 AM EDT We are seeing this 58 year old man in follow up of management of Type 2 diabetes Year of diagnosis: 1970's Regimen __x__ oral agents ____ GLP1 injection __x__ basal insulin ____ basal and meal insulin Diagnosis codes 250.03 E10.9 ___ Type 1 250.02 E11.9 __x__Type 2 E38.9, E84.8 ___ CFRD Glucose test strip brand: one touch ultra Number of Tests prescribed per day _x__ 2 ___ 3 __x_ 4 ___ 5-8 ___>8 DURATION of TESTING 4X a day or more __x___ Last 30 days ___x_ last 3 months ____ many years _ Justification for more than 3 tests a day ____ prevent severe hypoglycemia ____ prevent severe hyperglycemia ____ widely fluctuating blood sugars ____ overnight hypoglycemia Duration of need __x_ lifetime until ___/___/___ Prescriber: VINAYAK Betancourt MD Provider NPI [facility] [phone] Mr Acevedo has had Type 2 diabetes for a number of years. 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 He says that his glucose is extremely high for the 2 days after the IgG. He recently completed PT for his gait and says he is reasonable stable with a cane but tires easily. Regimen Oral medications Glipizide 10 mg a day Basal insulin lantus 60 qhs, 35 in am Bolus (meal and correction) insulin humalog 40 per meal Home glucose monitoring: HA1c done locally 5. 6 % (uses EPO)- likely really 7-7.5 Recommended frequency fbs Results 180, 120, 92 -- usually 110-130 Episodes of hypoglycemia Warning signs: Lite headed/headache Frequency of self treated episodes Rare, had more with higher dose Frequency of episodes needing assistance none Dietary plan: No snacking Thinks weight is increasing 24 hour diet recall: Erika dumont cc out AM snack Lunch Sometimes skips Afternoon snack Dinner 2 egg sandwiches (total 4 slices white bread) And chips After dinner snack Exercise routine Preferred exercise Walking (had been in physical therapy) Frequency 1-2 x a week Diabetes complications review eyes No retinopathy feet NO Abnormal shape RARE Symptoms - rare tingling Foot ulcers: None Overall risk of foot problems Low Medium High DOES NOT Uses prescription Inserts Shoes kidneys NO Minor urine protein (microalbuminuria ) NO Severe urine protein (protienuria) YES Decreased kidney function:CKD3, GFR 50's Autonomic neuropathies : NO Early satiety /nausea (gastroparesis) NO Problems emptying bladder NO Unable to detect low sugars NO Persistent rapid heartrate tachycardia cardiac NO chest pain on exertion NO shortness of breath on 1 flight of stairs NO Shortness of breath at rest NO history of Cardiac stent Cardiac bypass surgery Congestive heart failure Peripheral vascular disease: Neck arteries (carotids) Leg arterieis Stroke Diabetes preventative services last eye exam: 2 years last urine protein measurement 2019 last kidney function test (creatinine) 2019 last cholesterol Panel: By PCP regular computer operations manager visits NO special shoes: NO flu shot : MISSED pneumovax: 2015 prevnar (pneumonia shot update) NOT YET Kidney protection: Uses lisinopril or losartan type medications: YES Blood pressure 150/64 Heart protection: Uses low dose aspirin NO Uses cholesterol lowering medication ( statin) NO -ALLERGIC- myopathy Medications 09/25/18 0947 Medication Sig Taking? epoetin matt (PROCRIT INJ) Inject 10,000 Units as directed every 14 days. Yes metoprolol succinate (TOPROL-XL) 50 mg Tablet [...] INJECT 40 UNITS SUBCUTANEOUSLY BEFORE MEALS Yes GaleneaTOUCH ULTRA TEST Strip TEST DIRECTED THREE TIMES [...] Take 1 capsule by mouth daily. Yes ondansetron (ZOFRAN) 4 mg tablet Take 1 tablet by mouth as needed. Yes lisinopril-hydrochlorothiazide (PRINZIDE;ZESTORETIC) 20-12.5 mg per tablet Take 2 tablets by mouth daily. Yes BP 150/64 Pulse 70 Ht 175.3 cm (5' 9) Wt 122 kg (269 lb) BMI 39.72 kg/m?? Appearance: pleasant calm man wt Change Weight today is 270 - perhaps up a lb eyes: no retinopathy seen by green light but pupils were very small ext: no pitting edema feet: shape is flat skin is normal nails are not mycotic pulses in feet : dorsalis pedis-yes posterior tibial-yes neuro: gait is normal appreciation of 10 g of pressure is present Recent HA1c 5.6 % 1) DM2 - Mr Acevedo apparently has good control of his diabetes , though it is difficult to tell because his HA1c is artefactually lowered by the frequent use of EPO. His real HA1c is likely 7 % which is still excellent control. We would get a better sense of his control from a sensor and I am recommending the chandra sensor for him, but he will have to start testing more frequently to qualify (4 x aday). I will send him a letter about this. In the meantime his fasting glucose is good and Dr Dietz has adjusted his am lantus to avoid low sugars. His weight is essentially stable. I will discuss with Dr dietz possibly adding in a GLP1 and lowering all of his insulin doses by 30 %- the goal of this maneuver would be weight loss which might help mobility issues from his muscle weakness. We might be able to get rid of glipizide by this maneuver. He was on byetta in the past without problems but it was stopped when roosevelt had problems: 2) anemia- requires epo 3) ckd 3 - his estimated gfr is good and should pose no health issue , including anemia 4) BMI>39 - his weight is a major health issue ot him and a GLP1 should at least prevent increasein weight 5) prevention - he is not on an asa and missed his flu shot documented in this encounter Plan of Treatment Upcoming Encounters Date Type Specialty Care Team Description 06/19/2022 Office Visit Rheumatology Richi Blackmon MD [facility] DR [facility]HEUMAT[facility], [place] [address] (Wo rk) Scheduled Procedures Name Priority Associated Diagnoses Date/Time EGD, UPPER GI ENDOSCOPY Family hx of colon cance r COLONOSCOPY, DIAGNOSTIC Family hx of colon cance r documented as of this encounter Results (ABNORMAL) Hemoglobin A1c (02/16/2019 9:38 AM EDT) Analysis Performed At [facility] Time Signature Hemoglobin A1C 7.0 (H) 4.3 - 5.6 [facility] Comment: Reference Range: 4.3 - 5.6% 5.7 - 6.4% - Increased Risk of Developin g Diabetes Mellitus >= 6.5% - Consistent with diagnosis of D iabetes Mellitus In the absence of hyperglycemia (i.e. pl asma glucose > 200 mg/dL) or classic symptoms of hyperglycemia a repeat measu rement of HbA1c should be performed on a separate sample to confirm the diagnos is. Diagnosis and Classification of Diabetes Mellitus, Diabetes Care 2013; 36: Suppl. 1, L27-13 Est Avg Gluc 153 mg/dL [facility] Comment: eAG equivalents for HbA1c percentages: HbA1c(%) ?eAG(mg/dL) 6.0 ?126 6.5 ?140 7.0 ?154 7.5 ?169 8.0 ?183 8.5 ?197 9.0 ?212 9.5 ?226 10.0 ? 240 Limitations: The eAG calculation has not been validated on women, individuals below 18 years old and above 70 years old, and individuals with hemoglobinopathies. Additional resources are available on [facility] ADA website. José FLORES, Chaz J, Jeff R, et al. ??Tr anslating the A1C assay into estimated average glucose values. ??Diabetes Care 2008:31(8):6928-6162. Specimen Anatomical Collection Method Collection Time Receive d Time (Source) Location / / Volume Laterality Blood specimen 02/16/2019 9:38 AM 019 9:46 (specimen) EDT AM EDT Resulting Agency Comment Spec In Lab Slade Betancourt MD CHEMISTRY ORDERABLES Performing Organization Address City/State/[place] [address] documented in this encounter Visit Diagnoses Diagnosis Type 2 diabetes mellitus with diabetic n ephropathy, with long-term current use of insulin CKD (chronic kidney disease) stage 3, GF R 30-59 ml/min Chronic kidney disease, Stage III (moder ate) documented in this encounter Care Teams Shot Peening Operator Relationship Specialty Start Date End Date Jazmine Baer MD PCP - General 11/07/10 [address] [place] [address] documented as of this encounter
--- OUTSIDE RECORDS SUMMARY | 2022-04-11 10:49 | XMS_ITS | Encounter Summary ---
:1960 Author Organization [facility] [place] [address] Care Team Providers Name Role Phone Jazmine Baer MD Primary Care Provider Reason for Visit Reason Onset Date Comments Medical Care Coordination 05/20/2018 Encounter Details Date Type Department Care Team Description 05/20/2018 Telephone Hematology and Jessica Santos, Medical Care Oncology at [facility] [place] [address] Social History Tobacco Use Types Packs/Day Years Used Date Never Smoker Smokeless Tobacco: Never Used Alcohol Use Standard Drinks/Week Comments No 0 (1 standard drink = 0.6 oz pure alcoho l) Sex Assigned at Date Recorded Not on file documented as of this encounter Miscellaneous Notes Telephone Encounter - Jessica Santos, RN - 05/20/2018 10:44 AM EST Images from the original note were not included. RN received the following message from clinical school attendance secretary: YUN FROM [facility] CALLED RE: VENOFER Received: Today Message Contents Karen Potts Hem Onc Triage Hematology ?? The patient told them that he was to continue getting venofer there but they have no orders. ??She wants to know if this is the case. ??Please give her a call at: [phone]. ??Orders should be faxedto: [phone] Per Gloria Grant's note 04/21/18: 4. Follow-up - Continue Procrit locally, continue with nephrology and rheumatology follow-up - We will arrange for Bucky to RTC in approximately 6 months - Will arrange for iron infusions in [facility] ?? RN spoke with Yun and she confirms patient is getting IVIG there tomorrow. They can potentially add Venofer if orders are received in the morning, otherwise patient will need to go back for another appt or wait until Kho[facility] for infusion. 05/21/18: RN spoke with Gloria Grant NP and she will write orders for venofer. Orders faxed to [facility] attn Yun at [phone] documented in this encounter Plan of Treatment Upcoming Encounters Date Type Specialty Care Team Description 06/19/2022 Office Visit Rheumatology Richi Blackmon MD [facility] [address] RHEUMATOLOGY [place], [place] [address] (Wo rk) Scheduled Procedures Name Priority Associated Diagnoses Date/Time EGD, UPPER GI ENDOSCOPY Family hx of colon cance r COLONOSCOPY, DIAGNOSTIC Family hx of colon cance r documented as of this encounter Visit Diagnoses Not on filedocumented in this encounter Care Teams Black Leather Buffer Relationship Specialty Start Date End Date Jazmine Baer MD PCP - General 11/07/10 [address] [place] [address] documented as of this encounter
--- OUTSIDE RECORDS SUMMARY | 2022-04-11 10:49 | XMS_ITS | Encounter Summary ---
:1960 Author Organization [facility] [place] [address] Care Team Providers Name Role Phone Jazmine Baer MD Primary Care Provider Encounter Details Date Type Department Care Team Description 04/21/2018 Hospital Encounter Hematology and Iron de ficiency anemia, unspecified iron deficiency anemia type; Oncology at [facility] [place] [address] Social History Tobacco Use Types Packs/Day [...] Visit Rheumatology Richi Blackmon MD [facility] DR RHEUMATOLOGY [place], [place] [address] (Wo rk) Scheduled Procedures Name Priority Associated Diagnoses Date/Time EGD, UPPER GI ENDOSCOPY Family hx of colon cance r COLONOSCOPY, DIAGNOSTIC Family hx of colon cance r documented as of this encounter Procedures Procedure Name Priority Date/Time Associated Comments Diagnosis HEMOGRAM STAT 04/21/2018 9:51 AM Bicytopenia Results f or this EST procedure are i n the results section. DIFFERENTIAL, STAT 04/21/2018 9:51 AM Bicytopenia Results for this AUTOMATED EST procedure are i n the results section. IRON AND TIBC STAT 04/21/2018 9:51 AM Iron deficiency Resul ts for this EST anemia, unspecified procedur e are in iron deficiency the results anemia type section. CBC (WITH DIFF) STAT 04/21/2018 9:51 AM Bicytopenia EST FERRITIN STAT 04/21/2018 9:51 AM Iron deficiency Result s for this EST anemia, unspecified procedur e are in iron deficiency the results anemia type section. COMPREHENSIVE STAT 04/21/2018 9:51 AM Bicytopenia Results for this METABOLIC PANEL EST procedure ar e in (NON-FASTING) the results section. documented in this encounter Results (ABNORMAL) Differential, Automated (04/21/2018 9:51 AM EST) [facility] Method Time Signature Neutrophils % 64.5 % [facility] Neutr Abs (ANC) 2.62 1.70 - [facility] 6.10 [facility] x10(3)/[facility] LABORATORY Lymphocytes % 16.2 % [facility] Lymphocytes Abs 0.7 (L) 0.9 - 3.2 [facility] x10(3)/[facility] LABORATORY Monocytes % 8.8 % [facility] Monocyte Abs 0.4 0.3 - 0.9 [facility] x10(3)/[facility] LABORATORY Eosinophils % 9.1 % [facility] Eosinophils Abs 0.4 0.0 - 0.4 [facility] x10(3)/[facility] LABORATORY Basophils % 1.2 % [facility] Basophils Abs 0.0 0.0 - 0.1 [facility] x10(3)/[facility] LABORATORY Immature Gran % 0.20 % [facility] Comment: Immature granulocytes(IG's)percentage an d absolute count will include metamyelocytes, myelocytes, and promyelo cytes. Blood smears from CBCs yielding IG's will be scanned manually for concor dance. If this scan disagrees with the automated IG or if promyelocytes are not ed, a manual differential will be performed. Tamara Gran Abs 0.01 0.00 - 0.04 x10(3)/[facility] MAR Y [facility] Specimen Anatomical Collection Method Collection Time Receive d Time (Source) Location / / Volume Laterality Blood specimen 04/21/2018 9:51 AM 018 (specimen) EST 10:06 AM EST Resulting Agency Comment Spec In Lab Karen Montejo Brittney TELEGRAPH SERVICE CLERK HEMATOLOGY ORDERABLES Performing Organization Address City/State/[place] [address] (ABNORMAL) Hemogram (04/21/2018 9:51 AM EST) Analysis Performed At Patho logist Time Signature WBC 4.1 4.0 - 9.5 [facility] x[facility](3[facility] LABORATORY RBC 3.38 (L) 4.58 - [place] 5.54 [facility] x10(6)/[facility] LABORATORY Hemoglobin 10.1 (L) 13.7 - [facility] 16.5 gm/dL [facility] Hematocrit 32.4 (L) 40.5 - [facility] 48.5 % [facility] MCV 95.9 (H) 82.9 - [facility] 93.1 [facility] LABORATORY MCH 29.9 27.5 - [place] 32.1 pg [facility]ORY MCHC 31.2 (L) 32.0 - [place] 35.7 gm/dL [facility] Platelets 88 (L) 145 - 357 [facility] x[facility] LABORATORY RDWSD 59.7 (H) 36.0 - [place] 45.0 [facility] LABORATORY RDWCV 17.2 (H) 11.4 - [facility] [place] 13.8 % [facility] LABORATORY MPV 11.4 7.6 - 12.9 [facility] nRBC % Auto 0.0 % [facility] nRBC Abs Auto 0.000 0.000 - [facility] [place] 0.000 [facility] x10(3)/[facility] LABORATORY Specimen Anatomical Collection Method Collection Time Receive d Time (Source) Location / / Volume Laterality Blood specimen 04/21/2018 9:51 AM 018 (specimen) EST 10:06 AM EST Resulting Agency Comment Spec In Lab Karen Montejo Brittney TELEGRAPH SERVICE CLERK HEMATOLOGY ORDERABLES Performing Organization Address City/State/ZIP Code Phon [place] [facility] [place] [address] (ABNORMAL) Comprehensive metabolic panel (non-fasting) (04/21/2018 9:51 AM EST) P athologist Signature Glucose Lvl 169 65 - 199 [facility] mg/dL [facility] Comment: Diabetes: >=200 mg/dL plus symp toms BUN 62 (H) 10 - 20 mg/dL [facility] Creatinine 2.12 (H) 0.80 - 1.50 mg/dL [facility] Sodium 140 135 - 145 mmol/L [facility] Potassium 4.5 3.5 - 5.0 mmol/L [facility] Comment: Please note: ??Patients with WBC >100,00 0 may have falsely elevated Potassium levels. ??For accurate Potassium quantif ication in these patients send serum separator tube (gold top) for subsequent determinations. ??Contact the Clinical Chemistry Laboratory if there are any qu estions. Chloride 107 98 - 107 mmol/L [facility] CO2 20 (L) 22 - 31 mmol/L [facility] Anion Gap 13 5 - 15 mmol/L [facility] Calcium 9.3 8.5 - 10.5 mg/dL [facility] Total Protein 7.5 6.1 - 8.0 gm/dL [facility] Albumin 3.8 3.2 - 5.2 gm/dL [facility] AST 18 0 - 39 unit/L [facility] ALT 15 0 - 55 unit/L [facility] Alk Phos 121 (H) 40 - 120 unit/L [facility] Total Bilirubin 0.4 0.2 - 1.3 mg/dL [facility] Estimated GFR 33 (L) >=60 mL/min/1.73 m?? [facility] Comment: The eGFR was calculated using the CKD-EP I equation. As with all creatinine based estimates of kidney function, eGFR values calculated with the CKD-EPI equation are not accurate in patients wi th acute kidney failure, extremes of body mass or the acutely ill. [email or web address] eGFR 38 (L) >=60 mL/min/1.73 m?? [facility] Comment: The eGFR was calculated using the CKD-EP I equation. As with all creatinine based estimates of kidney function, eGFR values calculated with the CKD-EPI equation are not accurate in patients wi th acute kidney failure, extremes of body mass or the acutely ill. [email or web address] Specimen Anatomical Collection Method Collection Time Receive d Time (Source) Location / / Volume Laterality Blood specimen 04/21/2018 9:51 AM 018 (specimen) EST 10:06 AM EST Resulting Agency Comment Spec In Lab Karen uLgo APRN CHEMISTRY ORDERABLES Performing Organization Address City/[facility]/ZIP Code Phon e Number [address] Ferritin (04/21/2018 9:51 AM EST) athologist Signature Ferritin 128 30 - 400 [facility] ng/mL [facility] Comment: Pediatric reference ranges not verified at [facility], interpret with caution. Reference ranges for females greater kayleigh n 50 years of age approach values for men, i.e., 30-400 ng/mL. Specimen Anatomical Collection Method Collection Time Receive d Time (Source) Location / / Volume Laterality Blood specimen 04/21/2018 9:51 AM 018 (specimen) EST 10:06 AM EST Resulting Agency Comment Spec In Lab Karen Lugo APRN CHEMISTRY ORDERABLES Performing Organization Address City/[facility]/[place] [address] (ABNORMAL) Iron and TIBC (04/21/2018 9:51 AM EST) athologist Signature Iron 60 45 - 160 [facility] mcg/dL [facility] TIBC 386 250 - 450 [facility] [place] mcg/dL [facility] Iron Saturation 16 (L) 20 - 50 % [facility] Specimen Anatomical Collection Method Collection Time Receive d Time (Source) Location / / Volume Laterality Blood specimen 04/21/2018 9:51 AM 018 (specimen) EST 10:06 AM EST Resulting Agency Comment Spec In Lab Karen Lugo TELEGRAPH SERVICE CLERK CHEMISTRY ORDERABLES Performing Organization Address City/State/Z[place] [address] documented in this encounter Visit Diagnoses Diagnosis Iron deficiency anemia, unspecified iron deficiency anemia type Bicytopenia Other specified diseases of blood and bl ood-forming organs documented in this encounter Care Teams Pastry Cook Apprentice Relationship Specialty Start Date End Date Jazmine Baer MD PCP - General 11/07/10 [address] [place] [address] documented as of this encounter
--- OUTSIDE RECORDS SUMMARY | 2022-04-11 10:49 | XMS_ITS | Encounter Summary ---
:1960 Author Organization [facility] [place] [address] Care Team Providers Name Role Phone Jazmine Baer MD Primary Care Provider Encounter Details Date Type Department Care Team Description 04/17/2018 Office Visit Neurology at [facility] Henrry Gleason, Myopathy; [facility] Autoimmune [place] [address] NEUROLOGY DEPT. [phone] [place], [place] [address] Social History Tobacco Use Types Packs/Day Years Used Date Never Smoker Smokeless Tobacco: Never Used Alcohol Use Standard Drinks/Week Comments No 0 (1 standard drink = 0.6 oz pure alcoho l) Sex Assigned at Date Recorded Not on file documented as of this encounter Last Filed Vital Signs Vital Sign Reading Time Taken Comments Blood Pressure 134/63 04/17/2018 12:53 PM EST Pulse 68 04/17/2018 12:53 PM EST Temperature - - Respiratory Rate - - Oxygen Saturation - - Inhaled Oxygen Concentration - - Weight 122 kg (269 lb) 04/17/2018 12:53 PM EST Height 175.3 cm (5' 9) 04/17/2018 12:53 PM EST reporte d Body Mass Index 39.72 04/17/2018 12:53 PM EST documented in this encounter Progress Notes Henrry Gleason MD - 04/17/2018 1:00 PM EST 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 CK in normal range now. ?? Renal says his kidneys are working well at the moment. ? It is not felt that the imuran had anything to do with his gout flair up. He may have been dehydrated. ? IV solumedrol 1 day per month. IVIG 2 days/per mos. HGBA1C was 6.1 most recently. Got last IVIG 3 weeks ago. Port working great. ? Using treadmill 10-20??mins/day ? Seeing Dr. Ignacio. Going to restart the iron and procrit infusions. ? He denies any bowel or bladder dysfunction or any shortness of breath or chest pain.??No leg swelling with Lasix. ? On exam CN'2 2-12 OK. Arms are full strength now. He has 4/5 weakness in the iliopsoas and quads bilaterally and normal strength distally in his lower extremities. He is areflexic in LE's, nl in UE's. His sensory exam is normal.?? He has no major atrophy of his muscles. Walks with cane. Neuro exam stable. Great strength in UE's. ? Spoke with Dr. Prieto. Will go down on Solumedrol to 500mg IV once per month. Keep IVIG the same dosing for now. If he remains stable could cut out the solumedrol all together.? documented in this encounter Plan of Treatment Upcoming Encounters Date Type Specialty Care Team Description 06/19/2022 Office Visit Rheumatology Richi Blackmon MD [facility] DR RHEUMATOLOGY [place], [place] [address] (Wo rk) Scheduled Procedures Name Priority Associated Diagnoses Date/Time EGD, UPPER GI ENDOSCOPY Family hx of colon cance r COLONOSCOPY, DIAGNOSTIC Family hx of colon cance r documented as of this encounter Visit Diagnoses Diagnosis Myopathy Myopathy, unspecified Autoimmune necrotizing myopathy documented in this encounter Care Teams Bag Shop Worker Relationship Specialty Start Date End Date Jazmine Baer MD PCP - General 5/31/11 [address] [place] [address] documented as of this encounter
--- OUTSIDE RECORDS SUMMARY | 2022-04-11 10:49 | XMS_ITS | Encounter Summary ---
:1960 Author Organization [facility] [place] [address] Care Team Providers Name Role Phone Jazmine Baer MD Primary Care Provider Reason for Visit Reason Comments Follow-up Encounter Details Date Type Department Care Team Description 08/18/2018 Office Visit Hematology and Anastasia Ignacio MD [facility] HEMATOLOGY/[place] [address] Iron deficiency anemia, unspecified iron deficiency anemia type; Oncology at [facility] Karen Lugo APRN [facility] HEMATOLOGY/[place] [address] Hepatosplenomegaly; [facility] Noemy Grant APRN [facility] [address] HEMATOLOGY-[place] [address] Jessica Valerio MD [facility] [address] HEMATOLOGY/[place] [address] [place] [id number] Social History Tobacco Use Types Packs/Day Years Used Date Never Smoker Smokeless Tobacco: Never Used Alcohol Use Standard Drinks/Week Comments No 0 (1 standard drink = 0.6 oz pure alcoho l) Sex Assigned at Date Recorded Not on file documented as of this encounter Last Filed Vital Signs Vital Sign Reading Time Taken Comments Blood Pressure 151/67 08/18/2018 10:30 AM EDT Pulse 63 08/18/2018 10:30 AM EDT Temperature 36.7 ??C (98.1 ??F) 08/18/2018 10:30 AM EDT Respiratory Rate 19 08/18/2018 10:30 AM EDT Oxygen Saturation 97% 08/18/2018 10:30 AM EDT Inhaled Oxygen Concentration - - Weight 121.6 kg (268 lb 1.3 oz) 08/18/2018 10:51 AM EDT Height 173.6 cm (5' 8.35) 08/18/2018 10:51 AM EDT Body Mass Index 40.35 08/18/2018 10:51 AM EDT documented in this encounter Progress Notes Jayden Ignacio MD - 08/18/2018 11:15 AM EDT Hematology Clinic [place] [id number] HEMATOLOGY/BMT CONSULTATION VISIT NOTE Chief Complaint: Bucky [...] had been evaluated by Dr Evangelista at [facility] in 2012 for anemia and thrombocytopenia. [...] Itching and Rash ??? Morphine Itching ??? Nzyxrtz-Faa-Awk Reductase Inhibitors Myopathy INTERIM SOCIAL HISTORY: Changes [...] 4 doses of Venofer 300 mg at [facility] - where he already is receiving his IVIg. --Venofer is currently on hold and we are monitoring iron studies. [iron saturation may be better tofollow than ferritin given chronic inflammatory process] --Epo level inappropriately low for Hgb in the setting of CKD, Procrit 20,000Units SQ injection weekly for Hgb < 12gm/dL arranged at [facility] for patient's convenience 2. 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 No clinically significant bleeding. Platelet count remains stable 3. Fatigue - Unchanged although exercise does help. 4. Follow-up - Continue Procrit locally, continue with nephrology and rheumatology follow-up - We will arrange for Bucky to RT in approximately 6 months - Will arrange for iron infusions in [facility] 08/11/18 Note: Need to renew QOW lab orders for [facility] if want to keep doing them. Noemy Grant APRN Copies MD Donato Martinez MD Karen Lugo APRN - 08/18/2018 11:15 AM EDT Hematology Clinic [place] [id number] HEMATOLOGY/BMT CONSULTATION VISIT NOTE Chief Complaint: Bucky Beth is a 58 y.o. male referred by Dr. Baer for evaluation of bicytopenia (anemia and thrombocytopenia) . Data Review (From Jazmine Baer MD and [facility]) Oringinal History of Present Illness (03/16/16) Bucky Beth is a 58 y.o. 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 He was referred for evaluation ofiron deficiency anemia and thrombocytopenia. He had been evaluated by Dr Evangelitsa at [facility] in 2012 for anemia and thrombocytopenia. [...] ~ 6 months ago. Since last seen, he denies changes to his baseline health. No fevers, chill, recurrent infections. His was diagnosed with flu 2 months ago and he rec eived a course of prophylactic Tamiflu. No drenching sweats, unintentional weight loss, abnormal bleeding or excessive bruising. He continues to receive solumedrol and IVIG per Rheumatology once a month for myopathy which he tolerates well. He receives monthly Venofer and twice a month Aranesp injections for Hgb < 12gm/dL at the infusion clinic at [facility]. No new health-related concerns. Review of Systems: [...] CALDERON when walking uphill or up stairs Gastrointestinal --Appetite: good --Early satiety: No --Nausea/vomiting/diarrhea/constipation: No, has not needed Zofran in many weeks --Melena/Hematochezia: No Genitourinary --Dysuria or hematuria: No Musculoskeletal --Muscle pain or weakness: no focal pain though continues to describe generalized muscle weakness improved with solumedrol and IVIG infusions --Joint pain or swelling: No Immune System --Recent infections: No Hematology/Lymph --Bruising/bleeding/melena: No --Enlarged nodes or other masses: No Skin --Rashes or petechiae: No Neuro --Numbness/tingling: intermittent PN affecting bilateral LE --Headache/dizziness: No Other ROS: All negative Past [...] Itching and Rash ??? Morphine Itching ??? Ukyoibe-Lcc-Sti Reductase Inhibitors Myopathy INTERIM SOCIAL HISTORY: Changes in job, home situation, tobacco or alcohol use since last visit: None CHANGES IN RELEVANT FAMILY HISTORY: None Physical Exam VITAL SIGNS: BP 151/67 (Patient Position: Sitting) Pulse 63 Temp 36.7 ??C (98.1 ??F) (Oral) Resp 19 Ht 173.6 cm (5' 8.35) Wt 121.6 kg (268 lb 1.3 oz) SpO2 97% BMI 40.35 kg/m?? GENERAL: Bucky Beth is a well-appearing 58 y.o. male in no acute distress. ENT: Oropharynx clear. No masses. No thrush or oral lesions. No conjunctival pallor. ENDOCRINE: No thyromegaly palpated. CARDIOVASCULAR: Heart with regular rate and rhythm without S3,S4. Has 3/6 SMITA murmur [unchanged]. Nocyanosis. Mild trace bilateral nkle edema. PULMONARY: Lungs are clear to auscultation [...] for BUCKY BETH ( ) as of 08/18/2018 10:56 Ref. Range 08/18/2018 09:46 WBC Latest Ref [...] Ref Range: 0 - 55 unit/L 41 Iron Latest Ref Range: 45 - 160 mcg/dL 62 TIBC Latest Ref Range: 250 - 450 mcg/dL 340 Iron Saturation Latest Ref Range: 20 - 50 % 18 (L) Radiology: No new images reviewed today [...] 4 doses of Venofer 300 mg at [facility] - where he already is receiving his IVIg. --continues once a month Venofer 100mg maintenance infusion for LONNIE [iron saturation may be better to follow than ferritin given chronic inflammatory process] --Epo level inappropriately low for Hgb in the setting of CKD, Aranesp 60mcg SQ injection qoweekly for Hgb < 12gm/dL 2. 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 No clinically significant bleeding. Platelet count remains stable without clinical consequences. 3. Follow-up - Continue qmonth Venofer 100mg and Aranesp 60mcg SQ injection q2 weeks for Hgb < 12gm/dL locally at the infusion suite at [facility] for patient convenience - We will arrange for Bucky to RTC in approximately 6 months - General medical care and age appropriate health screening remain under the direction of Dr. Baer. - Bucky was reminded that we remain available in the interim should questions/concerns arise. Karen Lugo, MSN, FARM TRUCK DRIVER Nurse Practitioner Section of Hematology/Oncology Copies Jazmine Baer MD documented in this encounter Plan of Treatment Upcoming Encounters Date Type Specialty Care Team Description 06/19/2022 Office Visit Rheumatology Richi Blackmon MD [facility] DR RHEUMATOLOGY [place] [address] (Wo rk) Scheduled Procedures Name Priority Associated Diagnoses Date/Time EGD, UPPER GI ENDOSCOPY Family hx of colon cance r COLONOSCOPY, DIAGNOSTIC Family hx of colon cance r documented as of this encounter Results (ABNORMAL) Iron and TIBC (02/16/2019 9:38 AM EDT) athologist Signature Iron 46 45 - 160 [facility] mcg/dL [facility] TIBC 309 250 - 450 [facility] mcg/dL [facility] Iron Saturation 15 (L) 20 - 50 % [facility] Specimen Anatomical Collection Method Collection Time Receive d Time (Source) Location / / Volume Laterality Blood specimen 02/16/2019 9:38 AM 019 9:46 (specimen) EDT AM EDT Resulting Agency Comment Spec In Lab Karen Lugo FARM TRUCK DRIVER CHEMISTRY ORDERABLES Performing Organization Address City/State/[place] [address] (ABNORMAL) Comprehensive metabolic panel (non-fasting) (02/16/2019 9:38 AM EDT) athologist Signature Glucose Lvl 197 65 - 199 [facility] mg/dL [facility] Comment: Diabetes: >=200 mg/dL plus symp toms BUN 37 (H) 10 - 20 mg/dL [facility] Creatinine 1.50 0.80 - 1.50 mg/dL [facility] Sodium 140 135 - 145 mmol/L [facility] Potassium 4.4 3.5 - 5.0 mmol/L [facility] Comment: Please note: ??Patients with WBC >100,00 0 may have falsely elevated Potassium levels. ??For accurate Potassium quantif ication in these patients send serum separator tube (gold top) for subsequent determinations. ??Contact the Clinical Chemistry Laboratory if there are any qu estions. Chloride 108 (H) 98 - 107 mmol/L [facility] CO2 20 (L) 22 - 31 mmol/L [facility] Anion Gap 12 5 - 15 mmol/L [facility] Calcium 9.0 8.5 - 10.5 mg/dL [facility] Total Protein 7.7 6.1 - 8.0 gm/dL [facility] Albumin 3.5 3.2 - 5.2 gm/dL [facility] AST 18 0 - 39 unit/L [facility] ALT 15 0 - 55 unit/L [facility] Alk Phos 117 40 - 130 unit/L [facility] Total Bilirubin 0.4 0.2 - 1.3 mg/dL [facility] Estimated GFR 50 (L) >=60 mL/min/1.73 m?? [facility] Comment: The eGFR was calculated using the CKD-EP I equation. As with all creatinine based estimates of kidney function, eGFR values calculated with the CKD-EPI equation are not accurate in patients wi th acute kidney failure, extremes of body mass or the acutely ill. http://[employer]/[facility] CITYnkf eGFR 58 (L) >=60 mL/min/1.73 m?? [facility] Comment: The eGFR was calculated using the CKD-EP I equation. As with all creatinine based estimates of kidney function, eGFR values calculated with the CKD-EPI equation are not accurate in patients wi th acute kidney failure, extremes of body mass or the acutely ill. http://[employer]/[facility]nkf Specimen Anatomical Collection Method Collection Time Receive d Time (Source) Location / / Volume Laterality Blood specimen 02/16/2019 9:38 AM 019 9:46 (specimen) EDT AM EDT Resulting Agency Comment Spec In Lab Karen Lugo FARM TRUCK DRIVER CHEMISTRY ORDERABLES Performing Organization Address City/State/[place] [address] documented in this encounter Visit Diagnoses Diagnosis Iron deficiency anemia, unspecified iron deficiency anemia type Hepatosplenomegaly Other chronic nonalcoholic liver disease Bicytopenia Other specified diseases of blood and bl ood-forming organs documented in this encounter Care Teams Specifications Checker Relationship Specialty Start Date End Date Jazmine Baer MD PCP - General 11/07/10 [address] [place] [address] documented as of this encounter
--- OUTSIDE RECORDS SUMMARY | 2022-04-11 10:49 | XMS_ITS | Encounter Summary ---
:1960 Author Organization [facility] [place] [address] Care Team Providers Name Role Phone Jazmine Baer MD Primary Care Provider Encounter Details Date Type Department Care Team Description 01/12/2019 Telephone Hematology and [place]cology [place] [address] Social History Tobacco Use Types Packs/Day Years Used Date Never Smoker Smokeless Tobacco: Never Used Alcohol Use Standard Drinks/Week Comments No 0 (1 standard drink = 0.6 oz pure alcoho l) Sex Assigned at Date Recorded Not on file documented as of this encounter Miscellaneous Notes Telephone Encounter - Deja Garcia RN - 01/12/2019 10:48 AM EDT Message received from membership secretary: Sue from [facility] just called concerning lab orders for Bucky Acevedo. She has questions on what exactly they are suppose to be doing. Please give her a call today at [phone]. RN reviewed patient's chart and discussed with Karen Lugo APRN. Per Karen, the orders [facility] should be follow are below, and all others should be voided. Date: 09/12/2018 Patient Name: Bucky Acevedo : 1960 Diagnosis: Iron deficiency anemia, anemia of renal insufficiency Referral to [site]: [facility] ?? Lab orders: ?? CBC, creatinine q2 weeks; iron saturation q4 weeks ?? Infusion Orders: ? Aranesp 60mcg SQ injection q2 weeks for for Hgb < 12 ?? Venofer 300mg IV every 4 weeks x 6 for iron saturation < 20 ? Signature: Karen Lugo, MSN, PIPE FITTER WELDING beeper # [id number] T/C: RN made contact with Sue at [facility] and confirmed above orders as the only open orders, all others should be voided. Sue confirmed understanding and agreement with this plan. documented in this encounter Plan of Treatment Upcoming Encounters Date Type Specialty Care Team Description 06/19/2022 Office Visit Rheumatology Richi Blackmon MD [facility] DR RHEUMATOLOGY [place], [place] [address] (Wo rk) Scheduled Procedures Name Priority Associated Diagnoses Date/Time EGD, UPPER GI ENDOSCOPY Family hx of colon cance r COLONOSCOPY, DIAGNOSTIC Family hx of colon cance r documented as of this encounter Visit Diagnoses Not on filedocumented in this encounter Care Teams Merchandise Processor Relationship Specialty Start Date End Date Jazmine Baer MD PCP - General 11/07/10 [address] [place] [address] documented as of this encounter
--- OUTSIDE RECORDS SUMMARY | 2022-04-11 10:49 | XMS_ITS | Encounter Summary ---
:1960 Author Organization [facility] [place] [address] Care Team Providers Name Role Phone Jazmine Baer MD Primary Care Provider Reason for Visit Reason Onset Date Comments Other 11/05/2018 Encounter Details Date Type Department Care Team Description 11/05/2018 Telephone Rhe[facility]ology at [facility] [place] [address] Social History Tobacco Use Types Packs/Day Years Used Date Never Smoker Smokeless Tobacco: Never Used Alcohol Use Standard Drinks/Week Comments No 0 (1 standard drink = 0.6 oz pure alcoho l) Sex Assigned at Date Recorded Not on file documented as of this encounter Miscellaneous Notes Telephone Encounter - Shanthi Pham RN - 11/05/2018 11:56 AM EDT Akash Prieto MD sent to Shanthi Pham RN Caller: Unspecified (Yesterday, ??3:44 PM) ?? Don't mix I called Weston Patton and gave her above message. Telephone Encounter - Shanthi Pham RN - 11/05/2018 10:04 AM EDT I spoke with Weston Patton and her question is that if they do not have enough Privigen on Handto fulfill dose, can they make up the deficit with Gamunex C to complete the dose. The reason for asking is that they did not have enough Privigen on hand yesterday but will be getting a shipment in tomorrow and have rescheduled the patient so this is not an issue today. Pharmacist wants to know if they are in this situation in the future is it appropriate? I advised that I would discuss with MD but a pharmacist may be more appropriate or their Pharmacology written resources. documented in this encounter Plan of Treatment Upcoming Encounters Date Type Specialty Care Team Description 06/19/2022 Office Visit Rheumatology Richi Blackmon MD [facility] DR RHEUMATOLOGY [place], [place] [address] (Wo rk) Scheduled Procedures Name Priority Associated Diagnoses Date/Time EGD, UPPER GI ENDOSCOPY Family hx of colon cance r COLONOSCOPY, DIAGNOSTIC Family hx of colon cance r documented as of this encounter Visit Diagnoses Not on filedocumented in this encounter Care Teams Sap Solution Manager Consultant Relationship Specialty Start Date End Date Jazmine Baer MD PCP - General 11/07/10 [address] [place] [address] documented as of this encounter
--- OUTSIDE RECORDS SUMMARY | 2022-04-11 10:49 | XMS_ITS | Encounter Summary ---
:1960 Author Organization [facility] [place] [address] Care Team Providers Name Role Phone Jazmine Baer MD Primary Care Provider Reason for Visit Reason Onset Date Comments Referral 04/17/2018 Encounter Details Date Type Department Care Team Description 04/17/2018 Telephone Weight and Wellness at Rajesh Ortega RN Referral [address] [phone] Social History Tobacco Use Types Packs/Day Years Used Date Never Smoker Smokeless Tobacco: Never Used Alcohol Use Standard Drinks/Week Comments No 0 (1 standard drink = 0.6 oz pure alcoho l) Sex Assigned at Date Recorded Not on file documented as of this encounter Miscellaneous Notes Telephone Encounter - Paola Metzger - 04/17/2018 11:52 AM EST Gene Please review Thank you documented in this encounter Plan of Treatment Upcoming Encounters Date Type Specialty Care Team Description 06/19/2022 Office Visit Rheumatology Richi Blackmon MD [facility] RHEUMATOLOGY [place], [place] [address] (Wo rk) Scheduled Procedures Name Priority Associated Diagnoses Date/Time EGD, UPPER GI ENDOSCOPY Family hx of colon cance r COLONOSCOPY, DIAGNOSTIC Family hx of colon cance r documented as of this encounter Visit Diagnoses Not on filedocumented in this encounter Care Teams Store Custodian Relationship Specialty Start Date End Date Jazmine Baer MD PCP - General 11/07/10 [address] [place] [address] documented as of this encounter
--- OUTSIDE RECORDS SUMMARY | 2022-04-11 10:49 | XMS_ITS | Encounter Summary ---
:1960 Author Organization [facility] [place] [address] Care Team Providers Name Role Phone Jazmine Baer MD Primary Care Provider Reason for Visit Reason Onset Date Comments Follow-up 04/01/2019 Encounter Details Date Type Department Care Team Description 04/01/[address] [facility] Shanthi [place] [address] Social History Tobacco Use Types Packs/Day Years Used Date Never Smoker Smokeless Tobacco: Never Used Alcohol Use Standard Drinks/Week Comments No 0 (1 standard drink = 0.6 oz pure alcoho l) Sex Assigned at Date Recorded Not on file documented as of this encounter Miscellaneous Notes Telephone Encounter - Shanthi Pham RN - 04/01/2019 8:18 AM EDT Is he taking the allopurinol? ----- Message ----- From: Abilio, Lab In [facility] Sent: 03/31/2019 ??11:39 AM EDT To: Akash Prieto MD I spoke with Bucky and he reports that he is taking Allopurinol 300 mg daily. Denies any flares at this time. Will ask provider if there are any new recommendations. Akash Prieto MD sent to Shanthi Pham RN Caller: Unspecified (Today, ??8:18 AM) ?? If he is really taking it he needs to increase the dose to 400mg I spoke with Les and he agrees to the increased Allopurinol and new Rx cued up and sent to Dr. Prieto. documented in this encounter Plan of Treatment Upcoming Encounters Date Type Specialty Care Team Description 06/19/2022 Office Visit Rheumatology Richi Blackmon MD [facility] DR RHEUMATOLOGY [place], [place] [address] (Wo rk) Scheduled Procedures Name Priority Associated Diagnoses Date/Time EGD, UPPER GI ENDOSCOPY Family hx of colon cance r COLONOSCOPY, DIAGNOSTIC Family hx of colon cance r documented as of this encounter Visit Diagnoses Not on filedocumented in this encounter Care Teams Speech Lang Path Therapist Relationship Specialty Start Date End Date Jazmine Baer MD PCP - General 11/07/10 [address] [place] [address] documented as of this encounter
--- OUTSIDE RECORDS SUMMARY | 2022-04-11 10:50 | XMS_ITS | Encounter Summary ---
:1960 Author Organization [facility] [place] [address] Care Team Providers Name Role Phone Jazmine Baer MD Primary Care Provider Reason for Visit Reason Comments Injections Epoietin Encounter Details Date Type Department Care Team Description 11/15/2017 Infusion Hematology Oncology at [facility] in chronic kidney [facility] disease, unspecified CKD [address] [place], [place] [phone] Social History Tobacco Use Types Packs/Day Years Used Date Never Smoker Smokeless Tobacco: Never Used Alcohol Use Standard Drinks/Week Comments No 0 (1 standard drink = 0.6 oz pure alcoho l) Sex Assigned at Date Recorded Not on file documented as of this encounter Last Filed Vital Signs Vital Sign Reading Time Taken Comments Blood Pressure 132/53 11/15/2017 12:26 PM EDT Pulse 71 11/15/2017 12:26 PM EDT Temperature 36.8 ??C (98.2 ??F) 11/15/2017 12:26 PM EDT Respiratory Rate 16 11/15/2017 12:26 PM EDT Oxygen Saturation 100% 11/15/2017 12:26 PM EDT Inhaled Oxygen Concentration - - Weight 119.3 kg (263 lb) 11/15/2017 12:26 PM EDT Height 170 cm (5' 6.93) 11/15/2017 12:26 PM EDT Body Mass Index 41.28 11/15/2017 12:26 PM EDT documented in this encounter Progress Notes Ellen Ascencio RN - 11/15/2017 1:00 PM EDT Infusion Note Diagnosis:Anemia Treatment: Procrit Injection Labs: Hgb 10.3 Procrit 20,000 mcg injected SQ in rightt arm. Patient aware to call clinic with any questions or concerns. Plan: Return to clinic weekly as scheduled with every other week labs. documented in this encounter Plan of Treatment Upcoming Encounters Date Type Specialty Care Team Description 06/19/2022 Office Visit Rheumatology Richi Blackmon MD [facility] ER DR RHEUMATOLOGY [place], [place] [address] (Wo rk) Scheduled Procedures Name Priority Associated Diagnoses Date/Time EGD, UPPER GI ENDOSCOPY Family hx of colon cance r COLONOSCOPY, DIAGNOSTIC Family hx of colon cance r documented as of this encounter Visit Diagnoses Diagnosis Anemia in chronic kidney disease, unspec ified CKD stage documented in this encounter Administered Medications Inactive Administered Medications - up to 3 most recent administrations Medication Order MAR Action Action Date Dose Rate Site epoetin matt Given 11/15/2017 12:30 PM 20,000 Units R ight Arm (EPOGEN;PROCRIT) EDT injection 20,000 Units 20,000 Units, Subcutaneous, ONCE, 1 dose, On Sat11/15/17 at 1300, Routine, What is the indication of use? Chronic Kidney Disease (CKD) documented in this encounter Care Teams Quality Auditor Relationship Specialty Start Date End Date Jazmine Baer MD PCP - General 11/07/10 [address] [place] [address] documented as of this encounter
--- OUTSIDE RECORDS SUMMARY | 2022-04-11 10:50 | XMS_ITS | Encounter Summary ---
:1960 Author Organization [place] [address] Care Team Providers Name Role Phone Jazmine Baer MD Primary Care Provider Reason for Visit Reason Comments Injections Encounter Details Date Type Department Care Team Description 12/20/2017 Infusion Hematology Oncology at [facility] in chronic kidney [facility] disease, unspecified CKD [address] [place], [place] [phone] Social History Tobacco Use Types Packs/Day Years Used Date Never Smoker Smokeless Tobacco: Never Used Alcohol Use Standard Drinks/Week Comments No 0 (1 standard drink = 0.6 oz pure alcoho l) Sex Assigned at Date Recorded Not on file documented as of this encounter Last Filed Vital Signs Vital Sign Reading Time Taken Comments Blood Pressure 132/50 12/20/2017 12:33 PM EDT Pulse 77 12/20/2017 12:33 PM EDT Temperature 36.7 ??C (98.1 ??F) 12/20/2017 12:33 PM EDT Respiratory Rate 16 12/20/2017 12:33 PM EDT Oxygen Saturation 99% 12/20/2017 12:33 PM EDT Inhaled Oxygen Concentration - - Weight 120.7 kg (266 lb) 12/20/2017 12:33 PM EDT Height 175 cm (5' 8.9) 12/20/2017 12:33 PM EDT Body Mass Index 39.4 12/20/2017 12:33 PM EDT documented in this encounter Progress Notes Juan Marti RN - 12/20/2017 1:00 PM EDT Infusion Note Diagnosis:Anemia Due to CKD Treatment: Procrit Injection Labs: Hgb 10.9/ HCT 34.7 Procrit 20,000 mcg injected SQ in Left arm. Patient aware to call clinic with any questions or concerns. Plan: Return to clinic weekly as scheduled with every other week labs. documented in this encounter Plan of Treatment Upcoming Encounters Date Type Specialty Care Team Description 06/19/2022 Office Visit Rheumatology Richi Blackmon MD [facility] ER DR RHEUMATOLOGY [place], [place] [address] (Wo rk) Scheduled Procedures Name [...] Date Dose Rate Site epoetin matt Given 12/20/2017 12:40 PM 20,000 Units L eft Arm (EPOGEN;PROCRIT) injection EDT 20,000 Units 20,000 Units, Subcutaneous, ONCE, 1 dose, On Sat12/20/17 at 1300, Hold for Hgb > 12, Routine, What is the indication of use? Chronic Kidney Disease (CKD) documented in this encounter Care Teams Bank Worker Relationship Specialty Start Date End Date Jazmine Baer MD PCP - General 11/07/10 [address] [place] [address] documented as of this encounter
--- OUTSIDE RECORDS SUMMARY | 2022-04-11 10:50 | XMS_ITS | Encounter Summary ---
:1960 Author Organization [facility] [place] [address] Care Team Providers Name Role Phone Jazmine Baer MD Primary Care Provider Reason for Visit Reason Onset Date Comments Medical Care Coordination 01/29/2018 Encounter Details Date Type Department Care Team Description 01/29/2018 Telephone Hematology and Jessica Santos, Medical Care Oncology at [facility] [place] [place] [address] Social History Tobacco Use Types Packs/Day Years Used Date Never Smoker Smokeless Tobacco: Never Used Alcohol Use Standard Drinks/Week Comments No 0 (1 standard drink = 0.6 oz pure alcoho l) Sex Assigned at Date Recorded Not on file documented as of this encounter Miscellaneous Notes Telephone Encounter - Jessica Santos, RN - 01/29/2018 9:17 AM EDT RN received call from Sue at [facility] infusion. She states patient is currently there for IVIG. She has contacted [facility] and they do not have orders for Venofer. Sue states patient is now 4 weeks behind on procrit and has not started monthly venofer. Per Sue they cannot give procrit at [facility]- this has to be done at [facility], but if MD wants to write for [facility], they can give that instead. RN discussed with Sue that Dr Ignacio is not in the office today. RN will discuss plan with [employer] and fax orders to them as requested. Per Sue, her direct phone is: [phone] and her fax is [phone]. Orders written by Gloria Grant for [employer]. Faxed to Sue at above number as requested. Clinical accredited legal secretary will contact [facility] and have them schedule procrit. RN will continue to follow documented in this encounter Plan of Treatment Upcoming Encounters Date Type Specialty Care Team Description 06/19/2022 Office Visit Rheumatology Richi Blackmon MD [facility] ER DR RHEUMATOLOGY [place], [place] [address] (Wo rk) Scheduled Procedures Name Priority Associated Diagnoses Date/Time EGD, UPPER GI ENDOSCOPY Family hx of colon cance r COLONOSCOPY, DIAGNOSTIC Family hx of colon cance r documented as of this encounter Visit Diagnoses Not on filedocumented in this encounter Care Teams Professor Of Sport Management Relationship Specialty Start Date End Date Jazmine Baer MD PCP - General 11/07/10 [address] [place] [address] documented as of this encounter
--- OUTSIDE RECORDS SUMMARY | 2022-04-11 10:50 | XMS_ITS | Encounter Summary ---
:1960 Author Organization [facility] [place] [address] Care Team Providers Name Role Phone Jazmine Baer MD Primary Care Provider Reason for Visit Reason Comments Injections Procrit SQ Encounter Details Date Type Department Care Team Description 12/27/2017 Infusion Hematology Oncology at [facility] in chronic kidney [facility] disease, unspecified CKD [address] [place], [place] [phone] Social History Tobacco Use Types Packs/Day Years Used Date Never Smoker Smokeless Tobacco: Never Used Alcohol Use Standard Drinks/Week Comments No 0 (1 standard drink = 0.6 oz pure alcoho l) Sex Assigned at Date Recorded Not on file documented as of this encounter Last Filed Vital Signs Vital Sign Reading Time Taken Comments Blood Pressure 114/54 12/27/2017 12:16 PM EDT Pulse 70 12/27/2017 12:16 PM EDT Temperature 36.6 ??C (97.9 ??F) 12/27/2017 12:16 PM EDT Respiratory Rate 16 12/27/2017 12:16 PM EDT Oxygen Saturation 99% 12/27/2017 12:16 PM EDT Inhaled Oxygen Concentration - - Weight 120.7 kg (266 lb) 12/27/2017 12:16 PM EDT Height 175 cm (5' 8.9) 12/27/2017 12:16 PM EDT Body Mass Index 39.4 12/27/2017 12:16 PM EDT documented in this encounter Progress Notes Christopher Whitlock RN - 12/27/2017 1:00 PM EDT Infusion Note Diagnosis: Anemia d/t CKD Treatment: SQ Procrit Injection Labs: Hgb 10.9/ HCT 34.7 Procrit 20,000 units injected SQ in Left arm per Pt request. Patient aware to call clinic with any questions or concerns. Plan: Return to clinic weekly as scheduled with every other week labs. documented in this encounter Plan of Treatment Upcoming Encounters Date Type Specialty Care Team Description 06/19/2022 Office Visit Rheumatology Richi Blackmon MD [facility] ER DR RHEUMATOLOGY [place], [place] [address] (Wo rk) Scheduled Procedures Name [...] Date Dose Rate Site epoetin matt Given 12/27/2017 12:49 PM 20,000 Units L eft Arm (EPOGEN;PROCRIT) injection EDT 20,000 Units 20,000 Units, Subcutaneous, ONCE, 1 dose, On Sat12/27/17 at 1300, Hold for Hgb > 12, Routine, What is the indication of use? Chronic Kidney Disease (CKD) documented in this encounter Care Teams Brick Kiln Worker Relationship Specialty Start Date End Date Jazmine Baer MD PCP - General 11/07/10 [address] [place] [address] documented as of this encounter
--- OUTSIDE RECORDS SUMMARY | 2022-04-11 10:50 | XMS_ITS | Encounter Summary ---
:1960 Author Organization [facility] [place] [address] Care Team Providers Name Role Phone Jazmine Baer MD Primary Care Provider Reason for Visit Reason Comments Injections Epoietin Encounter Details Date Type Department Care Team Description 11/22/2017 Infusion Hematology Oncology at [facility] in chronic kidney [facility] disease, unspecified CKD [address] [place], [place] [phone] Social History Tobacco Use Types Packs/Day Years Used Date Never Smoker Smokeless Tobacco: Never Used Alcohol Use Standard Drinks/Week Comments No 0 (1 standard drink = 0.6 oz pure alcoho l) Sex Assigned at Date Recorded Not on file documented as of this encounter Progress Notes Ellen Ascencio RN - 11/22/2017 1:00 PM EDT Infusion Note Diagnosis:Anemia Treatment: Procrit Injection Labs: Hgb/Hct 11.8/37.7 Procrit 20,000 mcg injected SQ in left arm. Patient aware to call clinic with any questions or concerns. Plan: Return to clinic weekly as scheduled with every other week labs. documented in this encounter Plan of Treatment Upcoming Encounters Date Type Specialty Care Team Description 06/19/2022 Office Visit Rheumatology Richi Blackmon MD [facility] RHEUMATOLOGY [place], [place] [address] (Wo rk) Scheduled Procedures Name [...] Date Dose Rate Site epoetin matt Given 11/22/2017 12:59 PM 20,000 Units L eft Arm (EPOGEN;PROCRIT) injection EDT 20,000 Units 20,000 Units, Subcutaneous, ONCE, 1 dose, On Sat11/22/17 at 1300, Routine, What is the indication of use? Chronic Kidney Disease (CKD) documented in this encounter Care Teams Project Consultant Relationship Specialty Start Date End Date Jazmine Baer MD PCP - General 11/07/10 [address] [place] [address] documented as of this encounter
--- OUTSIDE RECORDS SUMMARY | 2022-04-11 10:50 | XMS_ITS | Encounter Summary ---
:1960 Author Organization [facility] [place] [address] Care Team Providers Name Role Phone Jazmine Baer MD Primary Care Provider Reason for Visit Reason Comments Injections Procrit Encounter Details Date Type Department Care Team Description 11/01/2017 Infusion Hematology Oncology at [facility] in chronic kidney [facility] disease, unspecified CKD [address] [place], [place] [phone] Social History Tobacco Use Types Packs/Day Years Used Date Never Smoker Smokeless Tobacco: Never Used Alcohol Use Standard Drinks/Week Comments No 0 (1 standard drink = 0.6 oz pure alcoho l) Sex Assigned at Date Recorded Not on file documented as of this encounter Last Filed Vital Signs Vital Sign Reading Time Taken Comments Blood Pressure 128/55 11/01/2017 12:20 PM EDT Pulse 87 11/01/2017 12:20 PM EDT Temperature 36.7 ??C (98.1 ??F) 11/01/2017 12:20 PM EDT Respiratory Rate 16 11/01/2017 12:20 PM EDT Oxygen Saturation 98% 11/01/2017 12:20 PM EDT Inhaled Oxygen Concentration - - Weight - - Height - - Body Mass Index - - documented in this encounter Progress Notes Ellen Ascencio RN - 11/01/2017 1:00 PM EDT Infusion Note Diagnosis:Anemia Treatment: Procrit Injection Labs: Hgb 11.1 Procrit 20,000 mcg injected SQ in left arm. Patient aware to call clinic with any questions or concerns. Plan: Return to clinic weekly as scheduled with every other week labs. documented in this encounter Plan of Treatment Upcoming Encounters Date Type Specialty Care Team Description 06/19/2022 Office Visit Rheumatology Richi Blackmon MD [facility] ER DR RHEUMATOLOGY [place], [place] [address] (Wo rk) Scheduled Procedures Name [...] Date Dose Rate Site epoetin matt Given 11/01/2017 12:27 PM 20,000 Units L eft Arm (EPOGEN;PROCRIT) injection EDT 20,000 Units 20,000 Units, Subcutaneous, ONCE, 1 dose, On Sat11/01/17 at 1300, Routine, What is the indication of use? Chronic Kidney Disease (CKD) documented in this encounter Care Teams Tv Host Relationship Specialty Start Date End Date Jazmine Baer MD PCP - General 11/07/10 [address] [place] [address] documented as of this encounter
--- OUTSIDE RECORDS SUMMARY | 2022-04-11 10:50 | XMS_ITS | Encounter Summary ---
:1960 Author Organization [facility] [place] [address] Care Team Providers Name Role Phone Jazmine Baer MD Primary Care Provider Reason for Referral Consultation (Routine) - Closed Specialty Diagnoses / Procedures Referred By Contact Refer red To Contact Endocrinology Diagnoses Type 2 diabetes mellitus with stage 1 chronic kidney disease, unspecified whether half-way insulin use Akash Prieto MD [facility] Endocrinology 3[address] [facility] D R [facility] [place] [address] [place] [address] Referral ID Status Reason Start Date Expiration Date Visits V isits Requested Authorized [id number] Closed Consult, 12/31/2017 12/31/2018 1 1 Test & Treat Reason for Visit Reason Comments Follow-up Encounter Details Date Type Department Care Team Description 12/31/2017 Office Visit Rheumatology at [facility] Akash Prieto Type 2 diabetes [facility] mellitus with stage 1 [facility] [place] [address] disease, unspecified [phone] RHEUMATOLOGY whether long te rm DEPT. insulin use [place], [place] [address] Social History Tobacco Use Types Packs/Day Years Used Date Never Smoker Smokeless Tobacco: Never Used Alcohol Use Standard Drinks/Week Comments No 0 (1 standard drink = 0.6 oz pure alcoho l) Sex Assigned at Date Recorded Not on file documented as of this encounter Last Filed Vital Signs Vital Sign Reading Time Taken Comments Blood Pressure 133/50 12/31/2017 10:51 AM EDT Pulse 70 12/31/2017 10:51 AM EDT Temperature 36.9 ??C (98.4 ??F) 12/31/2017 10:51 AM EDT Respiratory Rate - - Oxygen Saturation 100% 12/31/2017 10:51 AM EDT Inhaled Oxygen Concentration - - Weight 120.7 kg (266 lb) 12/31/2017 10:51 AM EDT Height 175.2 cm (5' 8.98) 12/31/2017 10:51 AM EDT Body Mass Index 39.3 12/31/2017 10:51 AM EDT documented in this encounter Progress Notes Akash Prieto MD - 12/31/2017 11:30 AM EDT ?? 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 his CK was initially in the 10-11,000 range but most recently it has been below 100 on a regimen that includes 2 infusions of 1 g/kg of IVIG done on 2 successive days monthly and on the first day he gets a gram of Solu-Medrol Recently has been very active around the house and going outside shop he uses a cane in the hospitalhe does not use any assistive devices when he goes to shop when he needs the stairs he walks down backwards because he does not have the confidence to walk down forwards He has had difficult time with his weight although his diabetes is well controlled He is pancytopenic with 2 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 rather than a primary marrow process is MRI of the abdomen did show cirrhosis and hepatosplenomegaly although he has been scoped and there is been no bleeding source associated with that Recently has been able to cut down his Prilosec because he is less nauseous for unclear reasons Lastly his creatinine has been stable at about 1.79 with most recent CK of 95 On exam he is healthy-appearing upbeat his blood pressure is 133/50 pulse of 70 pulse ox 100 temp of98 4 his weight is stable at 266 with a BMI of 39 his strength exam is within normal limits and he gets out of a chair without any assistive device or using his hands I kept him on the same medications there is nothing that clearly hepatotoxic on a conventional basis. He did have methotrexate but only for less than a year very early in his course I sent him to endocrinology I think it is critical that he lose weight and perhaps a different diabetes regimen would assist that documented in this encounter Plan of Treatment Upcoming Encounters Date Type Specialty Care Team Description 06/19/2022 Office Visit Rheumatology Richi Blackmon MD [facility] ER DR RHEUMATOLOGY [place], [place] [address] (Wo rk) Scheduled Procedures Name Priority Associated Diagnoses Date/Time EGD, UPPER GI ENDOSCOPY Family hx of colon cance r COLONOSCOPY, DIAGNOSTIC Family hx of colon cance r Scheduled Referrals Name Type Priority Associated Order Schedule Diagnoses Referral to Outpatient Referral Routine Type 2 diabetes Order ed: Endocrinology mellitus with stage 018 1 chronic kidney disease, unspecified whether half-way insulin use documented as of this encounter Visit Diagnoses Diagnosis Type 2 diabetes mellitus with stage 1 ch ronic kidney disease, unspecified whether internal auditor insulin use documented in this encounter Care Teams Head Well Puller Relationship Specialty Start Date End Date Jazmine Baer MD PCP - General 11/07/10 [address] [place] [address] documented as of this encounter
--- OUTSIDE RECORDS SUMMARY | 2022-04-11 10:50 | XMS_ITS | Encounter Summary ---
:1960 Author Organization [facility] [place] [address] Care Team Providers Name Role Phone Jazmine Baer MD Primary Care Provider Reason for Visit Reason Comments Chronic Kidney Disease Encounter Details Date Type Department Care Team Description 12/25/2017 Office Visit Nephrology Hypertension Lea Villavicencio MD [facility] DR NEPHROLOGY DEPT. [place] [id number] CKD (chronic kidney at [facility], A None disease) stage 3, GFR [facility] 30-59 ml/ [place] [address] Social History Tobacco Use Types Packs/Day Years Used Date Never Smoker Smokeless Tobacco: Never Used Alcohol Use Standard Drinks/Week Comments No 0 (1 standard drink = 0.6 oz pure alcoho l) Sex Assigned at Date Recorded Not on file documented as of this encounter Last Filed Vital Signs Vital Sign Reading Time Taken Comments Blood Pressure 132/60 12/25/2017 9:49 AM EDT Pulse 64 12/25/2017 9:49 AM EDT Temperature - - Respiratory Rate - - Oxygen Saturation - - Inhaled Oxygen Concentration - - Weight 121.3 kg (267 lb 6.4 oz) 12/25/2017 9:49 AM EDT Height - - Body Mass Index 39.61 12/20/2017 12:33 PM EDT documented in this encounter Patient Instructions Patient InstructionsAysha Farah RN - 12/25/2017 10:00 AM EDT Your kidney function looks much better than it did in October. Your potassium is a little elevated today. Potatoes are high in potassium. To decrease the potassiumin the potatoes: Peel them, cube them, soak them over night in water and change the water before youboil them. We gave you a food list with potassium levels and a nutrition counter Your albumin (protein) is low. Try to increase your protein intake. Eggs are a great source of protein and so is peanut butter and cheese. He is right handed and will begin to save his left arm from venipuncture. Call if you feel differently (consistent symptoms of nausea, vomiting, little appeal for food, itching, change in sleep patterns, worsening energy levels, shortness of breath). These are some of the signs of worsening kidney function. We will see you sooner if you are not feeling well. Please call. Aysha GABRIEL-forestry instructor Kidney Disease Nurse Specialist at [facility] Nephrology. 9 documented in this encounter Progress Notes Lea Villavicencio MD - 12/25/2017 10:00 AM EDT [facility] [address] [place] [address] ?? Reason for Clinic Visit: Systems Review and CKD management. Seen in clinic with: Aysha Farah RN-HARVEY, CKD RN Specialist ? 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 Recommend hydration 1-2 days prior to IVIG infusions. Has been generally well. No specific uremic symptoms as detailed below. ?? History obtained by RN Specialist: Bucky is following up from his last CKD clinic visit in September. 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 Mediport in right chest. Is on Colchicine PRN and Allopurinol daily and hashad no gout flares in past month. He is trying to give up soda for weight loss and has cut down to soda to 4 times in past 2 weeks. Drinking 4-6 20 oz bottles water with Punch sugar free packets ?? Review of Systems: Sign/Symptom Comments Energy level/fatigue: Varies day to day. Most days out and about doing things but gets tired and legs fatigue easily requiring rest breaks every few hours if up on legs Change in sleep patterns: Sleeping good at night about 8 hrs - feeling rested in mornings Nocturia: 2x-3x; improved from up to 5 times previously Appetite changes: Varies from day to day; not hungry in mornings. He restricts sugar for diabetes.He doesn't cook with salt. Has not previously followed low potassium diet Food aversions: Doesn't prefer red meat any more - picky eater at baseline Nausea: Improved - only needed Zofran 1 in last month Vomiting: None Bowels: Intermittent diarrhea Edema: None Shortness of breath: Improved - none lately Orthopnea/PND: No PND; 1-2 pillows Muscle Cramping: None - improved from previous Cold intolerance: Yes Itching: Improved - some in lower legs worse at night; occasional neuropathic pain Bruising/bleeding: This is improved. 1 nosebleed 2 days ago but had been 3 weeks prior Mental Status Changes: No change Recent Home Blood Pressure Control:Has a machine but not checking?? Recent Home Diabetic Management: checks 3 x daily at home fasting range 85- 100s last [id number] ?? Recent Lipid Management: allergic to statins ?? Advance Directives: not interested; ?? How has your health been in the last 4 weeks? Poor, Fair, Good, Very Good, Excellent. ?? Additional CCM Comments: He has NSA for charges above Medicare payments. Has been able to afford hisco-pays for medications ?? Hepatitis B Status: ? Serum Testing Date of Testing Results Hep B sAb/Hep B sAg Not tested ?? Vaccination Status: Unknown ?? Education: [facility] Phase One Booklet, Options video, Kidney Beginnings, Decision Aid: none given 12/25 - [facility] Nutrition Counter and Potassium Content of Foods given ?? Anticipated Renal Replacement Therapy Plan: not discussed Transplant evaluation: Not discussed ?? Fistula Date/Type of Initial Access/Surgeon: Not discussed * Vaccinations: - Influenza - Pneumovax - Zostavax - Meningococcus Advanced Directives: PMH: Patient Active Problem List Diagnosis Code [...] disease) stage 3, GFR 30-59 ml/min N18.3 Allergies Allergen Reactions ??? Methotrexate Hives, Itching and Rash ??? Morphine Itching ??? [id number] Reductase Inhibitors Myopathy Outpatient Prescriptions Marked as Taking for the 12/25/17 encounter (Office Visit) with Lea Villavicencio MD Medication Sig Dispense Refill ??? omeprazole (PRILOSEC) 20 mg Capsule, Delayed Release(E.C.) Take 20 mg by mouth daily. ??? metoprolol succinate (TOPROL-XL) 50 mg Tablet Sustained Release 24 hr Take 50 mg by mouth daily. ??? glipiZIDE (GLUCOTROL XL) 10 mg Tablet Extended Rel 24 hr Take 10 mg by mouth daily. ??? allopurinol (ZYLOPRIM) 300 mg Tablet Take 300 mg by mouth daily. ??? HUMALOG KWIKPEN 100 unit/mL Insulin Pen INJECT 40 UNITS SUBCUTANEOUSLY BEFORE MEALS 3 ??? Peap.coTOUCH ULTRA TEST Strip TEST DIRECTED THREE TIMES [...] Pen 35 units subcutaneously every morning, and 80 units subcutaneously nightly. ??? furosemide (LASIX) 20 mg Tablet Take 1 tablet by mouth daily. (Patient taking differently: Take 20 mg by mouth 2 times daily.) 30 tablet 12 ??? multivitamin Capsule Take 1 capsule by mouth daily. ??? ondansetron (ZOFRAN) 4 mg tablet Take 1 tablet by mouth as needed. 20 tablet 3 ??? lisinopril-hydrochlorothiazide (PRINZIDE;ZESTORETIC) 20-12.5 mg per tablet Take 2 tablets by mouth daily. Physical Exam: BP 132/60 Pulse 64 Wt 121.3 kg (267 lb 6.4 oz) BMI 39.61 kg/m2 General appearance Appears cushingoid, alert Head Atraumatic Eyes No pallor, no scleral icterus ENT Oropharynx clear. No exudate. Dentition fair Neck No JVD Respiratory CTA bilaterally. No added sounds COR/Vascular RRR No RMG Abdomen Obese, soft, non tender Not examined Skin Intact face, neck, limbs, upper trunk. No rash Neuro Intact. Normal facies, gait. Normal speech and mentation Asterixis None present Extremities Trace edema L + R to mid kim. No sacral edema Psych Mood is appropriate Labs Results for BUCKY BETH ( ) as of 12/25/2017 12:42 Ref. Range 09/02/2017 10:17 10/02/2017 08:38 10/30/2017 13:15 12/20/2017 00:00 WBC Unknown 3.5 (L) 4.1 3.9 (L) 5.26 (External Lab) RBC Unknown 3.72 (L) 3.91 (L) 3.66 (L) 3.66 (External Lab) Hemoglobin Unknown 10.9 (L) 11.2 (L) 10.5 (L) 10.9 (External Lab) Hematocrit Unknown 34.4 (L) 36.0 (L) 33.2 (L) 34.7 (External Lab) MCV Unknown 92.5 92.1 90.7 94.8 (External Lab) MCH Latest Ref Range: 27.5 - 32.1 pg 29.3 28.6 28.7 MCHC Latest Ref Range: 32.0 - 35.7 gm/dL 31.7 (L) 31.1 (L) 31.6 (L) RDWSD Latest Ref Range: 36.0 - 45.0 fL 50.5 (H) 55.1 (H) 53.7 (H) RDWCV Latest Ref Range: 11.4 - 13.8 % 14.8 (H) 16.6 (H) 16.5 (H) Platelets Unknown 66 (L) 90 (L) 76 (L) 81 (External Lab) MPV Latest Ref Range: 7.6 - 12.9 fL 11.[address] % Latest Ref Range: 0.7 - 2.6 % 0.[address] Abs Latest Ref Range: 0.030 - 0.120 x10(6)/mcL 0.030 Immature Retic% Latest Ref Range: 0.0 - 15.6 % 7.9 Reticulated Hgb Latest Ref Range: 31.3 - 40.2 pg 33.8 nRBC % Auto Latest Units: % 0.0 0.0 0.0 nRBC Abs Auto Latest Ref Range: 0.000 - 0.000 x10(3)/mcL 0.000 0.000 0.000 Neutr Abs (ANC) Latest Ref Range: 1.70 - 6.10 x10(3)/mcL 2.14 2.57 2.60 Neutrophils % Latest Units: % 60.6 63.0 65.9 Immature Gran % Latest Units: % 0.30 0.50 0.30 Lymphocytes % Latest Units: % 18.7 17.9 15.7 Monocytes % Latest Units: % 7.4 7.4 5.6 Eosinophils % Latest Units: % 11.3 10.0 11.2 Basophils % Latest Units: % 1.7 1.2 1.3 Tamara Gran Abs Latest Ref Range: 0.00 - 0.04 x10(3)/mcL 0.01 0.02 0.01 Lymphocytes Abs Latest Ref Range: 0.9 - 3.2 x10(3)/mcL 0.7 (L) 0.7 (L) 0.6 (L) Monocyte Abs Latest Ref Range: 0.3 - 0.9 x10(3)/mcL 0.3 0.3 0.2 (L) Eosinophils Abs Latest Ref Range: 0.0 - 0.4 x10(3)/mcL 0.4 0.4 0.4 Basophils Abs Latest Ref Range: 0.0 - 0.1 x10(3)/mcL 0.1 0.0 0.0 PT Latest Ref Range: 9.4 - 12.5 sec 11.8 INR Unknown 1.1 Sodium Unknown 134 (L) 135 133 (L) 139 (External Lab) Potassium Unknown 5.0 4.9 4.9 5.1 (External Lab) Chloride Unknown 97 (L) 99 99 107 (External Lab) CO2 Unknown 21 (L) 22 17 (L) 23 (External Lab) Anion Gap Latest Ref Range: 5 - 15 mmol/L 16 (H) 14 17 (H) BUN Unknown 62 (H) 54 (H) 71 (H) 42 (External Lab) Creatinine Unknown 1.87 (H) 2.28 (H) 3.62 (H) 1.79 (External Lab) eGFR Unknown 37 (L) 30 (L) 17 (L) 39 (External Lab) Glucose Lvl Unknown 310 (H) 394 (H) 365 (H) 88 (External Lab) Calcium Unknown 9.0 9.5 8.5 8.6 (External Lab) Magnesium Latest Units: mg/dL Pend Hemoglobin A1C Latest Ref Range: 4.3 - 5.6 % 10.1 (H) Est Avg Gluc Latest Units: mg/dL 243 Phosphorus Unknown 3.8 3.5 (External Lab) Uric Acid Latest Ref Range: 3.5 - 8.5 mg/dL 6.1 Total Protein Unknown 8.0 7.7 8.4 (External Lab) Albumin Unknown 3.7 3.9 3.5 3.2 (External Lab) Total Bilirubin Unknown 0.4 0.5 0.4 (External Lab) Bili, Direct Unknown Pend Alk Phos Unknown 145 (H) 141 (H) 163 (External Lab) AST Unknown 27 25 32 (External Lab) ALT Unknown 23 26 49 (External Lab) GGT Unknown Pend Amylase Unknown Pend Lipase Unknown Pend Ferritin Latest Ref Range: 30 - 400 ng/mL 154 Iron Latest Ref Range: 45 - 160 mcg/dL 50 TIBC Latest Ref Range: 250 - 450 mcg/dL 332 Iron Saturation Latest Ref Range: 20 - 50 % 15 (L) CK, Total Latest Ref Range: 0 - 200 unit/L 89 T4, total Unknown Pend TSH Unknown Pend PTH Unknown 33 pend (External Lab) MRI ABDOMEN WWO CONTRAST Unknown Problem/Goal/Assessment/Plan: Problem: Chronic Kidney Disease Goal: Reduce rate of progression Education for CKD Stage specific issues Results: Estimated GFR (MDRD): 39 ml/min/1.73m2 CKD Stage 3 Potassium Level - 5.1 CO2 level - 23 Uric Acid level - 6.1 on 10/02/17 Changes discussed with RN Specialist: Kidney function tends to change with the IVIG. Make sure you are taking enough fluids to keep your urine color pale yellow. Consider drinking extra fluids the 2 days prior to IVIG administration. Call if you feel differently (consistent symptoms of nausea, vomiting, little appeal for food, itching, change in sleep patterns, worsening energy levels, shortness of breath). These are some of the signs of worsening kidney function. We will see you sooner if you are not feeling well. Problem: Management of Anemia related to Chronic Kidney Disease (CKD) Goal: Hgb 9.5-10.9 g/dl Ferritin>100ng/ml TSAT>20% Today's Results Hgb - 10.9 Ferritin - 154 on 09/02/17 TSAT - 15 on 09/02/17 Receiving erythropoetic stimulating agent? Yes Start Date: Drug/Dose/Frequency: Procrit every week Where administered (clinic/hosp/home): [facility]/onc Last IV Iron replacement therapy (Venofer), Date : Fall 2016 Changes discussed with RN Specialist: Anemia managed at [facility]. Recommend IV iron to maintiantSAt > 20% Problem: Hypertension Goal: Urine alb:cr ratio <30mg/g - 140/90, Urine alb:cr ratio > 30mg/g - 130/80 Sodium intake < 2 Gm per day. Results: BP today - 132/60 Problem: Proteinuria Goal: Pro:Cr ratio <0.2mg/mg Alb:Cr ratio < 30mg/g Today's results: Pro:Cr ratio Alb:Cr ratio 10 on 07/02/17 Changes discussed with RN Specialist: Patient is on [id number] Problem: Bone Disease Goal: Stage 3 PTH: 35-70 pg/ml Phos 2.7-4.6 Ca 8.5-10.5mg/dl Stage 4 PTH: 70-110 pg/ml Phos 2.7-4.6 Ca 8.5-10.5mg/dl Stage 5 PTH: 150-300 pg/ml Phos 3.5-5.5 Ca 8.5-10.5mg/dl Results: PTH today -pending (pt not taking calcitriol) Phos today -3.5 (pt not taking binders) Calcium today - 8.6 Problem: Nutrition Goal: Albumin > 4.0gm/dl BMI 20-25 kg/m2 Results: Albumin today - 3.2 Changes discussed with RN Specialist: Your albumin (protein) is low. Try to increase your protein intake. Eggs are a great source of protein and so is peanut butter and cheese. Problem: Diabetes Goal: HA1C ~ 7.0% Results: HA1C 10.1 on 10/30/17 Random Glucose - 88 Changes discussed with RN Specialist: Patient on IV solumedrol prior to IVIG administration with fluctuations in blood sugars Problem: Dyslipidemia Goal: LDL < 100 mg/dl Results: LDL today - not tested Changes discussed with RN Specialist: Patient allergic to statins Summary: CKD stage IIIb A1 without proteinuria, unclear etiology, likely secondary to chronic myoglobin toxicity, chronic hyperuricemia, amd/or chronic immunoglobulin-associated tubular toxicity, possible underlying atypical diabetic nephropathy ?? 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 Recommend hydration 1-2 days prior to IVIG infusions. Has been generally well. No specific uremic symptoms as detailed below. ?? Uremic symptoms: minimal as detailed above ?? Volume overload: Continue low sodium diet. ?? Hypertension well controlled on current medications ?? Hyperuricemia with gout. Target uric acid < 5-8 mg/dl for prevention of progression of CKD andprevention of gout. Continue allopurinol , Currently at or below target ?? 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 Currently at or above target ?? Anemia - Continue GREGOR and parenteral iron per protocol . Recommend IV iron to maintain TSat > 20% ?? Hyperphosphatemia: No current indication for phosphate binders ?? Secondary hyperparathyroidism and bone health: Maintain 25 vitamin D level in normal range. No current indication for calcitriol ?? Dialysis education planning and access: as detailed above ?? Transplantation: Not referred at this time Return to CKD clinic: 6 months documented in this encounter Plan of Treatment Upcoming Encounters Date Type Specialty Care Team Description 06/19/2022 Office Visit Rheumatology Richi Blackmon MD [facility] DR RHEUMATOLOGY [place], [place] [address] (Wo rk) Pending Results Name Type Priority Associated Diagnoses Date/Ti me CBC / CMP / Thyroid Point of Care Testing Routine 12/20/2017 External Results Scheduled Procedures Name Priority Associated Diagnoses Date/Time EGD, UPPER GI ENDOSCOPY Family hx of colon cance r COLONOSCOPY, DIAGNOSTIC Family hx of colon cance r documented as of this encounter Results CK (12/31/2017 10:22 AM EDT) athologist Signature CK, Total 82 0 - 200 [facility] Specimen Anatomical Collection Method Collection Time Receive d Time (Source) Location / / Volume Laterality Blood specimen 12/31/2017 10:22 8 (specimen) AM EDT 10:43 AM EDT Resulting Agency Comment Spec In Lab Lea Villavicencio MD CHEMISTRY ORDERABLES Performing Organization Address City/State/[place] [address] documented in this encounter Visit Diagnoses Diagnosis CKD (chronic kidney disease) stage 3, GF R 30-59 ml/min Chronic kidney disease, Stage III (moder ate) documented in this encounter Care Teams Guest Advisor Relationship Specialty Start Date End Date Jazmine Baer MD PCP - General 11/07/10 [address] [place] [address] documented as of this encounter
--- OUTSIDE RECORDS SUMMARY | 2022-04-11 10:50 | XMS_ITS | Encounter Summary ---
:1960 Author Organization [facility] [place] [address] Care Team Providers Name Role Phone Jazmine Baer MD Primary Care Provider Reason for Visit Reason Comments Injections Epoietin Encounter Details Date Type Department Care Team Description 11/29/2017 Infusion Hematology Oncology at [facility] in chronic kidney [facility] disease, unspecified CKD [address] [place], [place] [phone] Social History Tobacco Use Types Packs/Day Years Used Date Never Smoker Smokeless Tobacco: Never Used Alcohol Use Standard Drinks/Week Comments No 0 (1 standard drink = 0.6 oz pure alcoho l) Sex Assigned at Date Recorded Not on file documented as of this encounter Last Filed Vital Signs Vital Sign Reading Time Taken Comments Blood Pressure 135/56 11/29/2017 12:50 PM EDT Pulse 63 11/29/2017 12:50 PM EDT Temperature 36.5 ??C (97.7 ??F) 11/29/2017 12:50 PM EDT Respiratory Rate 16 11/29/2017 12:50 PM EDT Oxygen Saturation 100% 11/29/2017 12:50 PM EDT Inhaled Oxygen Concentration - - Weight 119 kg (262 lb 6.4 oz) 11/29/2017 12:50 PM EDT Height 175.3 cm (5' 9) 11/29/2017 12:50 PM EDT Body Mass Index 38.75 11/29/2017 12:50 PM EDT documented in this encounter Progress Notes Ellen Ascencio RN - 11/29/2017 1:00 PM EDT Infusion Note Diagnosis:Anemia Treatment: Procrit Injection Labs: Hgb/Hct 11.8/37.7 Procrit 20,000 mcg injected SQ in right arm. Patient aware to call clinic with any questions or concerns. Plan: Return to clinic weekly as scheduled with every other week labs. documented in this encounter Plan of Treatment Upcoming Encounters Date Type Specialty Care Team Description 06/19/2022 Office Visit Rheumatology Richi Blackmon MD [facility] DR RHEUMATOLOGY [place], [place] [address] (Wo rk) Scheduled Procedures Name Priority Associated Diagnoses Date/Time EGD, UPPER GI ENDOSCOPY Family hx of colon cance r COLONOSCOPY, DIAGNOSTIC Family hx of colon cance r documented as of this encounter Procedures Procedure Name Priority Date/Time Associated Diagnosis Comme nts CHEMOTHERAPY SCAN 11/29/2017 12:00 AM Res ults for this EDT procedure are i n the results section. documented in this encounter Results SCAN DOC: CHEMOTHERAPY (11/29/2017 12:00 AM EDT) Narrative 11/29/2017 12:00 AM EDT This result has an attachment that is no t available. Ordered by an unspecified provider. Scanning Provider MEDIA MGR SCAN EXT ORDR/RSLT documented in this encounter Visit Diagnoses Diagnosis Anemia in chronic kidney disease, unspec ified CKD stage documented in this encounter Administered Medications Inactive Administered Medications - up to 3 most recent administrations Medication Order MAR Action Action Date Dose Rate Site epoetin matt Given 11/29/2017 1:35 PM 20,000 Units Ri ght Arm (EPOGEN;PROCRIT) EDT injection 20,000 Units 20,000 Units, Subcutaneous, ONCE, 1 dose, On Sat11/29/17 at 1545, Routine, What is the indication of use? Chronic Kidney Disease (CKD) documented in this encounter Care Teams Balance Wheel Screw Hole Tapper Relationship Specialty Start Date End Date Jazmine Baer MD PCP - General 11/07/10 [address] [place] [address] documented as of this encounter
--- OUTSIDE RECORDS SUMMARY | 2022-04-11 10:50 | XMS_ITS | Encounter Summary ---
:1960 Author Organization [facility] [place] [address] Care Team Providers Name Role Phone Jazmine Baer MD Primary Care Provider Encounter Details Date Type Department Care Team Description 10/02/2017 Laboratory Appointment Lab 3L [facility] CKD (chronic kidney [facility] disease) stage 3, GFR [facility] 30-59 ml/ [place] [id number] Social History Tobacco Use Types Packs/Day Years Used Date Never Smoker Smokeless Tobacco: Never Used Alcohol Use Standard Drinks/Week Comments No 0 (1 standard drink = 0.6 oz pure alcoho l) Sex Assigned at Date Recorded Not on file documented as of this encounter Plan of Treatment Upcoming Encounters Date Type Specialty Care Team Description 06/19/2022 Office Visit Rheumatology Richi Blackmon MD [facility] DR RHEUMATOLOGY [place], [place] [address] (Wo rk) Scheduled Procedures Name Priority Associated Diagnoses Date/Time EGD, UPPER GI ENDOSCOPY Family hx of colon cance r COLONOSCOPY, DIAGNOSTIC Family hx of colon cance r documented as of this encounter Procedures Procedure Name Priority Date/Time Associated Comments Diagnosis PTH Routine 10/02/2017 8:38 AM CKD (chronic kidney Re sults for this EDT disease) stage 3, procedure are in GFR 30-59 ml/min the results section. HEMOGRAM Routine 10/02/2017 8:38 AM CKD (chronic kidney Re sults for this EDT disease) stage 3, procedure are in GFR 30-59 ml/min the results section. DIFFERENTIAL, Routine 10/02/2017 8:38 AM CKD (chronic kidney R esults for this AUTOMATED EDT disease) stage 3, procedure are in GFR 30-59 ml/min the results section. CBC (WITH DIFF) Routine 10/02/2017 8:38 AM CKD (chronic kidney EDT disease) stage 3, GFR 30-59 ml/min URIC ACID Routine 10/02/2017 8:38 AM CKD (chronic kidney Re sults for this EDT disease) stage 3, procedure are in GFR 30-59 ml/min the results section. PHOSPHORUS Routine 10/02/2017 8:38 AM CKD (chronic kidney Re sults for this EDT disease) stage 3, procedure are in GFR 30-59 ml/min the results section. CK Routine 10/02/2017 8:38 AM Results f or this EDT procedure are i n the results section. ALBUMIN LEVEL Routine 10/02/2017 8:38 AM CKD (chronic kidney R esults for this EDT disease) stage 3, procedure are in GFR 30-59 ml/min the results section. BASIC METABOLIC Routine 10/02/2017 8:38 AM CKD (chronic kidney Results for this PANEL (NON-FASTING) EDT disease) stage 3, pro cedure are in GFR 30-59 ml/min the results section. documented in this encounter Results CK (10/02/2017 8:38 AM EDT) P athologist Signature CK, Total 89 0 - 200 [facility] unit/L [facility] Specimen Anatomical Collection Method Collection Time Receive d Time (Source) Location / / Volume Laterality Blood specimen Venous Draw / 10/02/2017 8:38 AM 2017 9:48 (specimen) Unknown EDT AM EDT Resulting Agency Comment Spec In Lab Lea Villavicencio MD CHEMISTRY ORDERABLES Performing Organization Address City/State/[place] [address] (ABNORMAL) Differential, Automated (10/02/2017 8:38 AM EDT) Patholo gist Method Time Signature Neutrophils % 63.0 % [facility] Neutr Abs (ANC) 2.57 1.70 - [facility] 6.10 [facility] x10(3)/[facility] LABORATORY Lymphocytes % 17.9 % [facility] Lymphocytes Abs 0.7 (L) 0.9 - 3.2 [facility] x10(3)/[facility] LABORATORY Monocytes % 7.4 % [facility] Monocyte Abs 0.3 0.3 - 0.9 [facility] x10(3)/[facility] LABORATORY Eosinophils % 10.0 % [facility] Eosinophils Abs 0.4 0.0 - 0.4 [facility] x10(3)/[facility] LABORATORY Basophils % 1.2 % [facility] Basophils Abs 0.0 0.0 - 0.1 [facility] x10(3)/[facility] LABORATORY Immature Gran % 0.50 % [facility] Comment: Immature granulocytes(IG's)percentage an d absolute count will include metamyelocytes, myelocytes, and promyelo cytes. Blood smears from CBCs yielding IG's will be scanned manually for concor dance. If this scan disagrees with the automated IG or if promyelocytes are not ed, a manual differential will be performed. Tamara Gran Abs 0.02 0.00 - 0.04 x10(3)/[facility] Y [facility] LABORATORY Specimen Anatomical Collection Method Collection Time Receive d Time (Source) Location / / Volume Laterality Blood specimen 10/02/2017 8:38 AM 018 8:46 (specimen) EDT AM EDT Resulting Agency Comment Spec In Lab eLa Villavicencio MD HEMATOLOGY ORDERABLES Performing Organization Address City/State/[place] [address] (ABNORMAL) Hemogram (10/02/2017 8:38 AM EDT) Analysis Performed At Patho logist Time Signature WBC 4.1 4.0 - 9.5 [facility] x10(3)/[facility] LABORATORY RBC 3.91 (L) 4.58 - [facility] 5.54 [facility] x10(6)/[facility] LABORATORY Hemoglobin 11.2 (L) 13.7 - [facility] 16.5 gm/dL [facility] Hematocrit 36.0 (L) 40.5 - [place] 48.5 % [facility] MCV 92.1 82.9 - [place] 93.1 [facility] LABORATORY MCH 28.6 27.5 - [place] 32.1 pg [facility] MCHC 31.1 (L) 32.0 - [place] 35.7 gm/dL [facility] Platelets 90 (L) 145 - 357 [place] x10(3)/[facility] LABORATORY RDWSD 55.1 (H) 36.0 - [place] 45.0 [facility] LABORATORY RDWCV 16.6 (H) 11.4 - [place] 13.8 % [facility] MPV 11.6 7.6 - 12.9 [place] [facility] LABORATORY nRBC % Auto 0.0 % [facility] nRBC Abs Auto 0.000 0.000 - [place] 0.000 [facility] x10(3)/[facility] LABORATORY Specimen Anatomical Collection Method Collection Time Receive d Time (Source) Location / / Volume Laterality Blood specimen 10/02/2017 8:38 AM 018 8:46 (specimen) EDT AM EDT Resulting Agency Comment Spec In Lab Lea Villavicencio MD HEMATOLOGY ORDERABLES Performing Organization Address City/[facility]/ZIP [place] [address] Uric acid (10/02/2017 8:38 AM EDT) P athologist Signature Uric Acid 6.1 3.5 - 8.5 [place] mg/dL [facility] Specimen Anatomical Collection Method Collection Time Receive d Time (Source) Location / / Volume Laterality Blood specimen 10/02/2017 8:38 AM 018 8:47 (specimen) EDT AM EDT Resulting Agency Comment Spec In Lab Lea Villavicencio MD CHEMISTRY ORDERABLES Performing Organization Address City/[facility]/ZIP [facility] [place] [address] PTH (10/02/2017 8:38 AM EDT) P athologist Signature PTH 33 15 - 65 [place] pg/mL [facility] Specimen Anatomical Collection Method Collection Time Receive d Time (Source) Location / / Volume Laterality Blood specimen 10/02/2017 8:38 AM 018 8:47 (specimen) EDT AM EDT Resulting Agency Comment Spec In Lab Lea Villavicencio MD CHEMISTRY ORDERABLES Performing Organization Address City/[facility]/ZIP Code Phon e Number [address] Albumin Level (10/02/2017 8:38 AM EDT) athologist Signature Albumin 3.9 3.2 - 5.2 [facility] [place] gm/dL [facility] Specimen Anatomical Collection Method Collection Time Receive d Time (Source) Location / / Volume Laterality Blood specimen 10/02/2017 8:38 AM 018 8:47 (specimen) EDT AM EDT Resulting Agency Comment Spec In Lab Lea Villavicencio MD CHEMISTRY ORDERABLES Performing Organization Address City/[facility]/ZIP Code Phon e Number [address] Phosphorus (10/02/2017 8:38 AM EDT) athologist Signature Phosphorus 3.8 2.5 - 4.5 [place] mg/dL [facility] Specimen Anatomical Collection Method Collection Time Receive d Time (Source) Location / / Volume Laterality Blood specimen 10/02/2017 8:38 AM 018 8:47 (specimen) EDT AM EDT Resulting Agency Comment Spec In Lab Lea Villavicencio MD CHEMISTRY ORDERABLES Performing Organization Address City/[facility]/ZIP [facility] [place] [address] (ABNORMAL) Basic Metabolic Panel (non-fasting) (10/02/2017 8:38 AM EDT) athologist Signature Glucose Lvl 394 (H) 65 - 199 [facility] Comment: Diabetes: >=200 mg/dL plus symp toms BUN 54 (H) 10 - 20 mg/dL [facility] Creatinine 2.28 (H) 0.80 - 1.50 mg/dL [facility] Sodium 135 135 - 145 mmol/L [facility] Potassium 4.9 3.5 - 5.0 mmol/L [facility] Comment: Please note: ??Patients with WBC >100,00 0 may have falsely elevated Potassium levels. ??For accurate Potassium quantif ication in these patients send serum separator tube (gold top) for subsequent determinations. ??Contact the Clinical Chemistry Laboratory if there are any qu estions. Chloride 99 98 - 107 mmol/L [facility] CO2 22 22 - 31 mmol/L [facility] Anion Gap 14 5 - 15 mmol/L [facility] Calcium 9.5 8.5 - 10.5 mg/dL [facility] Estimated GFR 30 (L) >=60 [facility] Comment: The reported eGFR should be multiplied b y 1.2 for patients. The MDRD is not an appropriate measure o f renal function for patients with body mass extremes or in patients with acute kidney failure. http://[employer]Zenput/DHnkdep http://[employer]/DHMCnkf Specimen Anatomical Collection Method Collection Time Receive d Time (Source) Location / / Volume Laterality Blood specimen 10/02/2017 8:38 AM 018 8:47 (specimen) EDT AM EDT Resulting Agency Comment Spec In Lab Lea Villavicencio MD CHEMISTRY ORDERABLES Performing Organization Address City/State/[place] [address] documented in this encounter Visit Diagnoses Diagnosis CKD (chronic kidney disease) stage 3, GF R 30-59 ml/min Chronic kidney disease, Stage III (moder ate) documented in this encounter Care Teams Farmworker [employer] Relationship Specialty Start Date End Date Jazmine Baer MD PCP - General 11/07/10 [address] [place] [address] documented as of this encounter
--- OUTSIDE RECORDS SUMMARY | 2022-04-11 10:50 | XMS_ITS | Encounter Summary ---
:1960 Author Organization [facility] [place] [address] Care Team Providers Name Role Phone Jazmine Baer MD Primary Care Provider Encounter Details Date Type Department Care Team Description 10/04/2017 Orders Only [place] [facility] [place] [address] Social History Tobacco Use Types Packs/Day Years Used Date Never Smoker Smokeless Tobacco: Never Used Alcohol Use Standard Drinks/Week Comments No 0 (1 standard drink = 0.6 oz pure alcoho l) Sex Assigned at Date Recorded Not on file documented as of this encounter Plan of Treatment Upcoming Encounters Date Type Specialty Care Team Description 06/19/2022 Office Visit Rheumatology Richi Blackmon MD [facility] DR RHEUMATOLOGY [place], [place] [address] (Wo rk) Scheduled Procedures Name Priority Associated Diagnoses Date/Time EGD, UPPER GI ENDOSCOPY Family hx of colon cance r COLONOSCOPY, DIAGNOSTIC Family hx of colon cance r documented as of this encounter Visit Diagnoses Not on filedocumented in this encounter Care Teams [employer] Relationship Specialty Start Date End Date Jazmine Baer MD PCP - General 11/07/10 [address] [place] [address] documented as of this encounter
--- OUTSIDE RECORDS SUMMARY | 2022-04-11 10:50 | XMS_ITS | Encounter Summary ---
:1960 Author Organization [place] [address] Care Team Providers Name Role Phone Jazmine Baer MD Primary Care Provider Encounter Details Date Type Department Care Team Description 09/02/2017 Hospital Encounter Hematology and Anemia, unspecified Oncology at [facility] [place] [address] Social History Tobacco Use Types Packs/Day Years [...] Take 1 capsule by mouth 0 daily. metoprolol succinate Take 50 mg by mouth 0 201705/02/2021 (TOPROL-XL) 50 mg daily. Tablet Sustained Release 24 hr glipiZIDE (GLUCOTROL Take 10 mg by mouth 0 08/24/2020 XL) 10 mg Tablet daily. Extended Rel 24 hr allopurinol Take 300 mg by mouth 0 04/2020 (ZYLOPRIM) 300 mg daily. TabletIndications: CKD (chronic kidney disease) stage 3, GFR 30-59 ml/min, Anemia of chronic renal failure, stage 3 (moderate) UNABLE TO FIND Solumedrol IV with IVIG 0 04/20/2020 infusions, once monthly (one bag, one mL). terazosin (HYTRIN) 5 Take 1 capsule by mouth 3 05/02/2021 mg Capsule nightly. insulin lispro Subcutaneous injection 0 10/02/2017 (HUMALOG) Solution three times daily before meals, sliding scale. indomethacin Take 50 mg by mouth as 0 09/15/2015 10/02/2017 (INDOCIN) 50 mg needed. Capsule atenolol (TENORMIN) Take 50 mg by mouth 0 10/02/2017 50 mg Tablet daily. omeprazole (PRILOSEC) Take 1 capsule by mouth 90 capsule 3 0 09/03/2013 12/25/2017 40 mg capsule daily. ondansetron (ZOFRAN) Take 1 tablet by mouth 20 tablet 3 02/201402/29/2020 4 mg tablet as needed. lisinopril-hydrochlor Take 2 tablets by mouth 0 05/02/2021 othiazide daily. (PRINZIDE;ZESTORETIC) 20-12.5 mg per tablet documented as of this encounter Plan of Treatment Upcoming Encounters Date Type Specialty Care Team Description 06/19/2022 Office Visit Rheumatology Richi Blackmon MD [facility] ER DR RHEUMATOLOGY [place], [place] [address] (Wo rk) Scheduled Procedures Name Priority Associated Diagnoses Date/Time EGD, UPPER GI ENDOSCOPY Family hx of colon cance r COLONOSCOPY, DIAGNOSTIC Family hx of colon cance r documented as of this encounter Procedures Procedure Name Priority Date/Time Associated Comments Diagnosis HEMOGRAM STAT 09/02/2017 10:17 Anemia, unspecified Resu lts for this AM EDT type procedure are i n the results section. DIFFERENTIAL, STAT 09/02/2017 10:17 Anemia, unspecified Res ults for this AUTOMATED AM EDT type procedure are i n the results section. IRON AND TIBC STAT 09/02/2017 10:17 Anemia, unspecified Res ults for this AM EDT type procedure are i n the results section. RETICULOCYTE COUNT STAT 09/02/2017 10:17 Anemia, unspecifie d Results for this AM EDT type procedure are i n the results section. CBC (WITH DIFF) STAT 09/02/2017 10:17 Anemia, unspecified AM EDT type FERRITIN STAT 09/02/2017 10:17 Anemia, unspecified Resu lts for this AM EDT type procedure are i n the results section. COMPREHENSIVE STAT 09/02/2017 10:17 Anemia, unspecified Res ults for this METABOLIC PANEL AM EDT type procedure ar e in (NON-FASTING) the results section. documented in this encounter Results (ABNORMAL) Differential, Automated (09/02/2017 10:17 AM EDT) [facility] Method Time Signature Neutrophils % 60.6 % [facility] Neutr Abs (ANC) 2.14 1.70 - [facility] 6.10 [facility] x10(3)/[facility] LABORATORY Lymphocytes % 18.7 % [facility] Lymphocytes Abs 0.7 (L) 0.9 - 3.2 [facility] x10(3)/[facility] LABORATORY Monocytes % 7.4 % [facility] Monocyte Abs 0.3 0.3 - 0.9 [facility] x10(3)/[facility] LABORATORY Eosinophils % 11.3 % [facility] Eosinophils Abs 0.4 0.0 - 0.4 [facility] x10(3)/[facility] LABORATORY Basophils % 1.7 % [facility] Basophils Abs 0.1 0.0 - 0.1 [facility] x10(3)/[facility] LABORATORY Immature Gran % 0.30 % [facility] Comment: Immature granulocytes(IG's)percentage an d absolute count will include metamyelocytes, myelocytes, and promyelo cytes. Blood smears from CBCs yielding IG's will be scanned manually for concor dance. If this scan disagrees with the automated IG or if promyelocytes are not ed, a manual differential will be performed. Tamara Gran Abs 0.01 0.00 - 0.04 x10(3)/[facility] MAR Y [facility] LABORATORY Specimen Anatomical Collection Method Collection Time Receive d Time (Source) Location / / Volume Laterality Blood specimen 09/02/2017 10:17 8 (specimen) AM EDT 10:29 AM EDT Resulting Agency Comment Spec In Lab Karen Lugo SALVAGE DETERMINER HEMATOLOGY ORDERABLES Performing Organization Address City/State/[place] [address] (ABNORMAL) Hemogram (09/02/2017 10:17 AM EDT) Analysis Performed At Patho logist Time Signature WBC 3.5 (L) 4.0 - 9.5 [facility] x10(3)/[facility] LABORATORY RBC 3.72 (L) 4.58 - [facility] 5.54 [facility] x10(6)/[facility] LABORATORY Hemoglobin 10.9 (L) 13.7 - [facility] 16.5 gm/dL [facility] LAB[facility] Hematocrit 34.4 (L) 40.5 - [facility] 48.5 % [facility] MCV 92.5 82.9 - [facility] 93.1 [facility] LABORATORY MCH 29.3 27.5 - [facility] 32.1 pg [facility] MCHC 31.7 (L) 32.0 - [facility] 35.7 gm/dL [facility] Platelets 66 (L) 145 - 357 [facility] x10(3)/[facility] LABORATORY RDWSD 50.5 (H) [facility].[address] [facility]0 [facility] LABORATORY RDWCV 14.8 (H) 11.4 - [facility] 13.8 % [facility] LABORATORY MPV 11.8 7.6 - 12.9 [facility] LABORATORY nRBC % Auto 0.0 % [facility] LABOR[facility]ORY nRBC Abs Auto 0.000 0.000 - [facility] 0.000 [facility] x10(3)/[facility] LABORATORY Specimen Anatomical Collection Method Collection Time Receive d Time (Source) Location / / Volume Laterality Blood specimen 09/02/2017 10:17 8 (specimen) AM EDT 10:29 AM EDT Resulting Agency Comment Spec In Lab Karen Montejo Brittney VARGAS HEMATOLOGY ORDERABLES Performing Organization Address City/State/ZIP Code Phon e Number [address] Reticulocyte Count (09/02/2017 10:17 AM EDT) athologist Signature Retic Ct % 0.8 0.7 - 2.6 [facility] LABORATORY Retic Ct Abs 0.030 0.030 - [facility] 0.120 [facility] x10(6)/[facility] LABORATORY Immature Retic% 7.9 0.0 - 15.6 [facility] LAB[facility]ORY Reticulated Hgb 33.8 31.3 - [facility] 40.2 [facility] LABORATORY Specimen Anatomical Collection Method Collection Time Receive d Time (Source) Location / / Volume Laterality Blood specimen 09/02/2017 10:17 8 (specimen) AM EDT 10:29 AM EDT Resulting Agency Comment Spec In Lab Karen Montejo Brittney SALVAGE DETERMINER HEMATOLOGY ORDERABLES Performing Organization Address City/[facility]/[place] [address] Ferritin (09/02/2017 10:17 AM EDT) athologist Signature Ferritin 154 30 - [facility] ng/mL [facility] LAB[facility]ORY Comment: Pediatric reference ranges not verified at [facility], interpret with caution. Reference ranges for females greater kayleigh n 50 years of age approach values for men, i.e., 30-400 ng/mL. Specimen Anatomical Collection Method Collection Time Receive d Time (Source) Location / / Volume Laterality Blood specimen 09/02/2017 10:17 8 (specimen) AM EDT 10:29 AM EDT Resulting Agency Comment Spec In Lab Karen Lugo SAM CHEMISTRY ORDERABLES Performing Organization Address City/[facility]/ZIP Code Phon e Number [address] (ABNORMAL) Iron and TIBC (09/02/2017 10:17 AM EDT) athologist Signature Iron 50 45 - 160 [facility] mcg/dL [facility] TIBC 332 250 - 450 [facility] mcg/dL [facility] LAB[facility] Iron Saturation 15 (L) 20 - 50 % [facility] LABORATORY Specimen Anatomical Collection Method Collection Time Receive d Time (Source) Location / / Volume Laterality Blood specimen 09/02/2017 10:17 8 (specimen) AM EDT 10:29 AM EDT Resulting Agency Comment Spec In Lab Karen Nikia Brittney SALVAGE DETERMINER CHEMISTRY ORDERABLES Performing Organization Address City/State/[place] [address] (ABNORMAL) Comprehensive metabolic panel (non-fasting) (09/02/2017 10:17 AM EDT) athologist Signature Glucose Lvl 310 (H) 65 - 199 [facility] mg/dL [facility] LAB[facility]ORY Comment: Diabetes: >=200 mg/dL plus symp toms BUN 62 (H) 10 - 20 mg/dL [facility] Creatinine 1.87 (H) 0.80 - 1.50 mg/dL [facility] Sodium 134 (L) 135 - 145 mmol/L [facility] LABOR[facility]ORY Potassium 5.0 3.5 - 5.0 mmol/L [facility] LAB[facility] Comment: Please note: ??Patients with WBC >100,00 0 may have falsely elevated Potassium levels. ??For accurate Potassium quantif ication in these patients send serum separator tube (gold top) for subsequent determinations. ??Contact the Clinical Chemistry Laboratory if there are any qu estions. Chloride 97 (L) 98 - 107 mmol/L [facility] CO2 21 (L) 22 - 31 mmol/L [facility] Anion Gap 16 (H) 5 - 15 mmol/L [facility] Calcium 9.0 8.5 - 10.5 mg/dL [facility] Total Protein 8.0 6.1 - 8.0 gm/dL [facility] Albumin 3.7 3.2 - 5.2 gm/dL [facility] AST 27 0 - 39 unit/L [facility] ALT 23 0 - 55 unit/L [facility] Alk Phos 145 (H) 40 - 120 unit/L [facility] Total Bilirubin 0.4 0.2 - 1.3 mg/dL [facility] LAB[facility] Estimated GFR 37 (L) >=60 [facility] Comment: The reported eGFR should be multiplied b y 1.2 for patients. The MDRD is not an appropriate measure o f renal function for patients with body mass extremes or in patients with acute kidney failure. http://Savvify/DHnkdep http://Savvify/DHMCnkf Specimen Anatomical Collection Method Collection Time Receive d Time (Source) Location / / Volume Laterality Blood specimen 09/02/2017 10:17 8 (specimen) AM EDT 10:29 AM EDT Resulting Agency Comment Spec In Lab Karen Lugo SALVAGE DETERMINER CHEMISTRY ORDERABLES Performing Organization Address City/State/[place] [address] documented in this encounter Visit Diagnoses Diagnosis Anemia, unspecified type documented in this encounter Care Teams Anode Builder Relationship Specialty Start Date End Date Jazmine Baer MD PCP - General 11/07/10 [address] [place] [address] documented as of this encounter
--- OUTSIDE RECORDS SUMMARY | 2022-04-11 10:50 | XMS_ITS | Encounter Summary ---
:1960 Author Organization [facility] [place] [address] Care Team Providers Name Role Phone Jazmine Baer MD Primary Care Provider Reason for Visit Reason Comments Injections Epoetin SC Encounter Details Date Type Department Care Team Description 12/13/2017 Infusion Hematology Oncology at [facility] in chronic kidney [facility] disease, unspecified CKD [address] [place], [place] [phone] Social History Tobacco Use Types Packs/Day Years Used Date Never Smoker Smokeless Tobacco: Never Used Alcohol Use Standard Drinks/Week Comments No 0 (1 standard drink = 0.6 oz pure alcoho l) Sex Assigned at Date Recorded Not on file documented as of this encounter Last Filed Vital Signs Vital Sign Reading Time Taken Comments Blood Pressure 138/61 12/13/2017 12:18 PM EDT Pulse 67 12/13/2017 12:18 PM EDT Temperature 36.8 ??C (98.2 ??F) 12/13/2017 12:18 PM EDT Respiratory Rate 16 12/13/2017 12:18 PM EDT Oxygen Saturation 100% 12/13/2017 12:18 PM EDT Inhaled Oxygen Concentration - - Weight 119.7 kg (264 lb) 12/13/2017 12:18 PM EDT Height 175.3 cm (5' 9) 12/13/2017 12:18 PM EDT Body Mass Index 38.99 12/13/2017 12:18 PM EDT documented in this encounter Progress Notes Destiny Deshpande RN - 12/13/2017 1:00 PM EDT Infusion Note Diagnosis:Anemia Due to CKD Treatment: Procrit Injection Labs: Hgb 11.3 Procrit 20,000 mcg injected SQ in right arm. Patient aware to call clinic with any questions or concerns. Plan: Return to clinic weekly as scheduled with every other week labs. documented in this encounter Plan of Treatment Upcoming Encounters Date Type Specialty Care Team Description 06/19/2022 Office Visit Rheumatology Richi Blackmon MD [facility] ER DR RHEUMATOLOGY [place], [place] [address] (Wo rk) Scheduled Procedures Name [...] Date Dose Rate Site epoetin matt Given 12/13/2017 12:25 PM 20,000 Units R ight Arm (EPOGEN;PROCRIT) EDT injection 20,000 Units 20,000 Units, Subcutaneous, ONCE, 1 dose, On Sat12/13/17 at 1300, Hold for Hgb > 12, Routine, What is the indication of use? Chronic Kidney Disease (CKD) documented in this encounter Care Teams Packaging Line Operator Relationship Specialty Start Date End Date Jazmine Baer MD PCP - General 11/07/10 [address] [place] [address] documented as of this encounter
--- OUTSIDE RECORDS SUMMARY | 2022-04-11 10:50 | XMS_ITS | Encounter Summary ---
:1960 Author Organization [facility] [place] [address] Care Team Providers Name Role Phone Jazmine Baer MD Primary Care Provider Encounter Details Date Type Department Care Team Description 09/02/2017 Office Visit Hematology and Anastasia Ignacio MD [facility] DR HEMATOLOGY/[place] [address] Anemia, unspecified Oncology at [facility] Karen Lugo, [facility] DR HEMATOLOGY/[place] [address] [facility] Noemy Grant, [facility] [address] HEMATOLOGY[place] [address] Estephania Snowden MD [facility] DR HEMATOLOGY/[place] [address] [place] [id number] Social History Tobacco Use Types Packs/Day Years Used Date Never Smoker Smokeless Tobacco: Never Used Alcohol Use Standard Drinks/Week Comments No 0 (1 standard drink = 0.6 oz pure alcoho l) Sex Assigned at Date Recorded Not on file documented as of this encounter Last Filed Vital Signs Vital Sign Reading Time Taken Comments Blood Pressure 145/71 09/02/2017 10:41 AM EDT Pulse 72 09/02/2017 10:39 AM EDT Temperature 36.2 ??C (97.2 ??F) 09/02/2017 10:39 AM EDT Respiratory Rate 17 09/02/2017 10:39 AM EDT Oxygen Saturation 98% 09/02/2017 10:39 AM EDT Inhaled Oxygen Concentration - - Weight 120.9 kg (266 lb 9.6 oz) 09/02/2017 10:39 AM EDT Height 175 cm (5' 8.9) 09/02/2017 10:39 AM EDT Body Mass Index 39.49 09/02/2017 10:39 AM EDT documented in this encounter Progress Notes Estephania House MD - 09/02/2017 11:15 [place] [address] HEMATOLOGY/BMT CONSULTATION VISIT NOTE Chief Complaint: Bucky Acevedo is a 57 y.o. male referred by Dr. Baer for evaluation of bicytopenia (anemia and thrombocytopenia) . Data Review (From Jazmine Baer MD and [facility]) Oringinal History of Present Illness (03/16/16) Bucky Acevedo is a 57 y.o. 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 He was referred for evaluation ofiron deficiency anemia and thrombocytopenia. He had been evaluated by Dr Evangelista at [facility] in 2012 for anemia and thrombocytopenia. At that time a bone marrow biopsy was done which was normal. He states that he was started on iron supplementation pills at that time however, he used them briefly before stopping. He is currently on oral ferrous sulfate alternating with ferrous gluconate daily. He states that Ferrous gluconate was started by [facility] because of constipation with ferrous sulfate. He [...] returns to clinic today in routine follow-up for his bicytopenia. It has been ~ 4 month sincehis last visit. Since that time, he has been receiving epogen for his anemia of chronic kidney disease. States that energy level varies. Some days are good and some are bad. No necessarily better since receiving epogen. He denies CP, SOB, cough, fever or chills. He denies n/v/d/c. He denies recent illnesses this winter. Appetite is overall good. He has lost a few lbs since last visit, he has been trying to decrease his weight to better control his hgbA1C. He has overall been well this winter with noillnesses or change in his health status. Review of Systems: Constitutional --Energy level: chronic [...] ??? Obesity ??? Shingles 2010 Medications: ??? glipiZIDE (GLUCOTROL XL) 10 mg Tablet Extended Rel 24 hr ??? allopurinol (ZYLOPRIM) 300 mg Tablet ??? HUMALOG KWIKPEN 100 unit/mL Insulin Pen ??? ONETOUCH ULTRA TEST Strip ??? IMMUNE GLOBULIN,GAMMA,IGG, (IMMUNE GLOBULIN, HUMAN,, IGG, IV) ??? UNABLE TO FIND ??? terazosin (HYTRIN) 5 mg Capsule ??? insulin lispro (HUMALOG) Solution ??? insulin glargine (LANTUS SOLOSTAR) Insulin Pen ??? indomethacin (INDOCIN) 50 mg Capsule ??? furosemide (LASIX) 20 mg Tablet ??? multivitamin Capsule ??? ondansetron (ZOFRAN) 4 mg tablet ??? lisinopril-hydrochlorothiazide (PRINZIDE;ZESTORETIC) 20-12.5 mg per tablet ??? atenolol (TENORMIN) 50 mg Tablet ??? omeprazole (PRILOSEC) 40 mg capsule Allergies Allergies Allergen Reactions ??? Methotrexate Hives, Itching and Rash ??? Morphine Itching ??? Pyehzsz-Aei-Vnu Reductase Inhibitors Myopathy INTERIM SOCIAL HISTORY: Changes in job, home situation, tobacco or alcohol use since last visit: None CHANGES IN RELEVANT FAMILY HISTORY: None Physical Exam VITAL SIGNS: BP 145/71 Pulse 72 Temp 36.2 ??C (97.2 ??F) (Temporal) Resp 17 Ht 175 cm (5' 8.9) Wt 120.9 kg (266 lb 9.6 oz) SpO2 98% BMI 39.49 kg/m2 GENERAL: Bucky Acevedo is a well-appearing 57 y.o. male in no acute distress. ENT: [...] Recent Results (from the past 72 hour(s)) Comprehensive metabolic panel (non-fasting) Result Value Ref Range Glucose Lvl 310 (H) 65 - 199 mg/dL BUN 62 (H) 10 - 20 mg/dL Creatinine 1.87 (H) 0.80 - 1.50 mg/dL Sodium 134 (L) 135 - 145 mmol/L Potassium 5.0 3.5 - 5.0 mmol/L Chloride 97 (L) 98 - 107 mmol/L CO2 21 (L) 22 - 31 mmol/L Anion Gap 16 (H) 5 - 15 mmol/L Calcium 9.0 8.5 - 10.5 mg/dL Total Protein 8.0 6.1 - 8.0 gm/dL Albumin 3.7 3.2 - 5.2 gm/dL AST 27 0 - 39 unit/L ALT 23 0 - 55 unit/L Alk Phos 145 (H) 40 - 120 unit/L Total Bilirubin 0.4 0.2 - 1.3 mg/dL Estimated GFR 37 (L) >=60 Iron and TIBC Result Value Ref Range Iron 50 45 - 160 mcg/dL TIBC 332 250 - 450 mcg/dL Iron Saturation 15 (L) 20 - 50 % Reticulocyte Count Result Value Ref Range Retic Ct % 0.8 0.7 - 2.6 % Retic Ct Abs 0.030 0.030 - 0.120 x10(6)/mcL Immature Retic% 7.9 0.0 - 15.6 % Reticulated Hgb 33.8 31.3 - 40.2 pg Hemogram Result Value Ref Range WBC 3.5 (L) 4.0 - 9.5 x10(3)/mcL RBC 3.72 (L) 4.58 - 5.54 x10(6)/mcL Hemoglobin 10.9 (L) 13.7 - 16.5 gm/dL Hematocrit 34.4 (L) 40.5 - 48.5 % MCV 92.5 82.9 - 93.1 fL MCH 29.3 27.5 - 32.1 pg MCHC 31.7 (L) 32.0 - 35.7 gm/dL Platelets 66 (L) 145 - 357 x10(3)/mcL RDWSD 50.5 (H) 36.0 - 45.0 fL RDWCV 14.8 (H) 11.4 - 13.8 % MPV 11.8 7.6 - 12.9 fL nRBC % Auto 0.0 % nRBC Abs Auto 0.000 0.000 - 0.000 x10(3)/mcL Differential, Automated Result Value Ref Range Neutrophils % 60.6 % Neutr Abs (ANC) 2.14 1.70 - 6.10 x10(3)/mcL Lymphocytes % 18.7 % Lymphocytes Abs 0.7 (L) 0.9 - 3.2 x10(3)/mcL Monocytes % 7.4 % Monocyte Abs 0.3 0.3 - 0.9 x10(3)/mcL Eosinophils % 11.3 % Eosinophils Abs 0.4 0.0 - 0.4 x10(3)/mcL Basophils % 1.7 % Basophils Abs 0.1 0.0 - 0.1 x10(3)/mcL Immature Gran % 0.30 % Tamara Gran Abs 0.01 0.00 - 0.04 x10(3)/mcL Radiology: No new images reviewed today Assessment & Plan: Bucky Acevedo is a 57 y.o. male who presents for return consultation [...] 4 doses of Venofer 300 mg at [facility] - where he already is receiving his IVIg. --Venofer is currently on hold and we are monitoring iron studies. [iron saturation may be better tofollow than ferritin given chronic inflammatory process] --Epo level inappropriately low for Hgb in the setting of CKD, Procrit 20,000Units SQ injection weekly for Hgb < 12gm/dL arranged at [facility] for patient's convenience 2. 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 No clinically significant bleeding 3. Fatigue - multifactorial, repletion of iron stores did not seem to improve fatigue much. 4. Follow-up - Continue Procrit locally, continue with nephrology and rheumatology follow-up - We will arrange for Bucky to [facility] in approximately 3-4 months. Estephania House M.D. Hematology and Oncology Fellow HEMATOLOGY/BMT STAFF NOTE I reviewed Bucky Acevedo's situation including labs and history with Dr. House. We formulatedthe above plan together. I agree with Dr. House's assessment and plans as listed in her note. I did not personally see Bucky Acevedo during this visit. Jayden Ignacio MD Section of Hematology/Oncology Page: #[phone] Office Phone: [phone] Copies MD Donato Martinez MD documented in this encounter Plan of Treatment Upcoming Encounters Date Type Specialty Care Team Description 06/19/2022 Office Visit Rheumatology Richi Blackmon MD [facility] DR RHEUMATOLOGY [place], [place] [address] (Wo rk) Scheduled Procedures Name Priority Associated Diagnoses Date/Time EGD, UPPER GI ENDOSCOPY Family hx of colon cance r COLONOSCOPY, DIAGNOSTIC Family hx of colon cance r documented as of this encounter Results (ABNORMAL) Ferritin (12/31/2017 10:22 AM EDT) athologist Signature Ferritin 28 (L) 30 - 400 DUGLAS JUVENTINO ng/mL [facility] Comment: Pediatric reference ranges not verified at [facility], interpret with caution. Reference ranges for females greater kayleigh n 50 years of age approach values for men, i.e., 30-400 ng/mL. Specimen Anatomical Collection Method Collection Time Receive d Time (Source) Location / / Volume Laterality Blood specimen 12/31/2017 10:22 8 (specimen) AM EDT 10:43 AM EDT Resulting Agency Comment Spec In Lab Jayden Ignacio MD CHEMISTRY ORDERABLES Performing Organization Address City/[facility]/ZIP Code Phon e Number [address] (ABNORMAL) Iron and TIBC (12/31/2017 10:22 AM EDT) P athologist Signature Iron 28 (L) 45 - 160 Critical [facility] hospital/dL [facility] TIBC 419 250 - 450 [facility] LABORATORY Iron Saturation 7 (L) 20 - 50 % [facility] Specimen Anatomical Collection Method Collection Time Receive d Time (Source) Location / / Volume Laterality Blood specimen 12/31/2017 10:22 8 (specimen) AM EDT 10:43 AM EDT Resulting Agency Comment Spec In Lab Jayden Ignacio MD CHEMISTRY ORDERABLES Performing Organization Address City/[facility]/ZIP Code Phon e Number [address] (ABNORMAL) Comprehensive metabolic panel (non-fasting) (12/31/2017 10:22 AM EDT) P athologist Signature Glucose Lvl 248 (H) 65 - 199 [facility] mg/dL [facility] Comment: Diabetes: >=200 mg/dL plus symp toms BUN 44 (H) 10 - 20 mg/dL [facility] Creatinine 1.62 (H) 0.80 - 1.50 mg/dL [facility] Sodium 140 135 - 145 mmol/L [facility] Potassium 4.5 3.5 - 5.0 mmol/L [facility] Comment: Please note: ??Patients with WBC >100,00 0 may have falsely elevated Potassium levels. ??For accurate Potassium quantif ication in these patients send serum separator tube (gold top) for subsequent determinations. ??Contact the Clinical Chemistry Laboratory if there are any qu estions. Chloride 104 98 - 107 mmol/L [facility] CO2 19 (L) 22 - 31 mmol/L [facility] Anion Gap 17 (H) 5 - 15 mmol/L [facility] Calcium 8.8 8.5 - 10.5 mg/dL [facility] Total Protein 7.3 6.1 - 8.0 gm/dL [facility] Albumin 3.7 3.2 - 5.2 gm/dL [facility] AST 21 0 - 39 unit/L [facility] ALT 19 0 - 55 unit/L [facility] Alk Phos 137 (H) 40 - 120 unit/L [facility] Total Bilirubin 0.4 0.2 - 1.3 mg/dL [facility] Estimated GFR 46 (L) >=60 mL/min/1.73 m?? [facility] Comment: The eGFR was calculated using the CKD-EP I equation. As with all creatinine based estimates of kidney function, eGFR values calculated with the CKD-EPI equation are not accurate in patients wi th acute kidney failure, extremes of body mass or the acutely ill. http://[employer] Scient[employer]p http://[employer]/[facility]nkf eGFR 53 (L) >=60 mL/min/1.73 m?? [facility] Comment: The eGFR was calculated using the CKD-EP I equation. As with all creatinine based estimates of kidney function, eGFR values calculated with the CKD-EPI equation are not accurate in patients wi th acute kidney failure, extremes of body mass or the acutely ill. http://[employer]dep http://[employer]/[facility]ERSnkf Specimen Anatomical Collection Method Collection Time Receive d Time (Source) Location / / Volume Laterality Blood specimen 12/31/2017 10:22 8 (specimen) AM EDT 10:43 AM EDT Resulting Agency Comment Spec In Lab Jayden Ignacio MD CHEMISTRY ORDERABLES Performing Organization Address City/State/[place] [address] documented in this encounter Visit Diagnoses Diagnosis Anemia, unspecified type documented in this encounter Care Teams Concert Promoter Relationship Specialty Start Date End Date Jazmine Baer MD PCP - General 11/07/10 [address] [place] [address] documented as of this encounter
--- OUTSIDE RECORDS SUMMARY | 2022-04-11 10:50 | XMS_ITS | Encounter Summary ---
:1960 Author Organization [facility] [place] [address] Care Team Providers Name Role Phone Jazmine Baer MD Primary Care Provider Encounter Details Date Type Department Care Team Description 01/30/2018 Notes Only Hematology and Oncology Jayden Ignacio MD at [facility] Hilda shafer HEMATOLOGY/[place] [address] [place] [id number] [phone] (Wo rk) Social History Tobacco Use Types Packs/Day Years Used Date Never Smoker Smokeless Tobacco: Never Used Alcohol Use Standard Drinks/Week Comments No 0 (1 standard drink = 0.6 oz pure alcoho l) Sex Assigned at Date Recorded Not on file documented as of this encounter Progress Notes Jayden Ignacio MD - 01/30/2018 3:13 PM EDT Per request of Mr. Acevedo, he would like to transfer his GREGOR injections from [facility] in [facility] to [facility]. However, they do not have the ability to give Procrit but can give Aranesp there so his dosewas converted from 20,000 units to 60 mcg every 2 weeks of Aranesp. We will forward these orders to [facility]. Leoncio Ignacio MD documented in this encounter Plan of Treatment Upcoming Encounters Date Type Specialty Care Team Description 06/19/2022 Office Visit Rheumatology Richi Blackmon MD [facility] RHEUMATOLOGY [place], [place] [address] (Wo rk) Scheduled Procedures Name Priority Associated Diagnoses Date/Time EGD, UPPER GI ENDOSCOPY Family hx of colon cance r COLONOSCOPY, DIAGNOSTIC Family hx of colon cance r documented as of this encounter Visit Diagnoses Not on filedocumented in this encounter Care Teams Datapower Developer Relationship Specialty Start Date End Date Jazmine Baer MD PCP - General 11/07/10 [address] [place] [address] documented as of this encounter
--- OUTSIDE RECORDS SUMMARY | 2022-04-11 10:50 | XMS_ITS | Encounter Summary ---
:1960 Author Organization [facility] [place] [address] Care Team Providers Name Role Phone Jazmine Baer MD Primary Care Provider Encounter Details Date Type Department Care Team Description 09/13/2017 Infusion Hematology Oncology at [facility] deficiency anemia due [facility] to chronic blood loss [address] [place], [place] [phone] Social History Tobacco Use Types Packs/Day Years Used Date Never Smoker Smokeless Tobacco: Never Used Alcohol Use Standard Drinks/Week Comments No 0 (1 standard drink = 0.6 oz pure alcoho l) Sex Assigned at Date Recorded Not on file documented as of this encounter Last Filed Vital Signs Vital Sign Reading Time Taken Comments Blood Pressure 142/60 09/13/2017 12:38 PM EDT Pulse 63 09/13/2017 12:38 PM EDT Temperature 36.4 ??C (97.5 ??F) 09/13/2017 12:38 PM EDT Respiratory Rate 18 09/13/2017 12:38 PM EDT Oxygen Saturation 99% 09/13/2017 12:38 PM EDT Inhaled Oxygen Concentration - - Weight 119.4 kg (263 lb 3.2 oz) 09/13/2017 12:38 PM EDT Height 175.3 cm (5' 9) 09/13/2017 12:38 PM EDT Body Mass Index 38.87 09/13/2017 12:38 PM EDT documented in this encounter Progress Notes Tila Bauer RN - 09/13/2017 1:00 PM EDT Infusion Note Diagnosis: Anemia Treatment: Procrit Injection Labs: H/H 10.9/34.4 Procrit 20,000 mcg injected in left arm. Patient aware to call clinic with any questions or concerns. Plan: Return to clinic weekly as scheduled with every other week labs. documented in this encounter Plan of Treatment Upcoming Encounters Date Type Specialty Care Team Description 06/19/2022 Office Visit Rheumatology Richi Blackmon MD [facility] DR RHEUMATOLOGY [place], [place] [address] (Wo rk) Scheduled Procedures Name Priority Associated Diagnoses Date/Time EGD, UPPER GI ENDOSCOPY Family hx of colon cance r COLONOSCOPY, DIAGNOSTIC Family hx of colon cance r documented as of this encounter Visit Diagnoses Diagnosis Iron deficiency anemia due to chronic bl ood loss Iron deficiency anemia secondary to bloo d loss (chronic) documented in this encounter Administered Medications Inactive Administered Medications - up to 3 most recent administrations Medication Order MAR Action Action Date Dose Rate Site epoetin matt Given 09/13/2017 1:00 PM EDT 20,000 Units (EPOGEN;PROCRIT) injection 20,000 Units 20,000 Units, Intravenous, ONCE, 1 dose, On Sat09/13/17 at 1300, Routine, What is the indication of use? Chronic Kidney Disease (CKD) documented in this encounter Care Teams Nutrition Technician Relationship Specialty Start Date End Date Jazmine Baer MD PCP - General 11/07/10 [address] [place] [address] documented as of this encounter
--- OUTSIDE RECORDS SUMMARY | 2022-04-11 10:50 | XMS_ITS | Encounter Summary ---
:1960 Author Organization [facility] [place] [address] Care Team Providers Name Role Phone Jazmine Baer MD Primary Care Provider Reason for Visit Reason Comments Injections Epoetin Encounter Details Date Type Department Care Team Description 09/20/2017 Infusion Hematology Oncology at [facility] deficiency anemia due [facility] to chronic blood loss [address] [place] [phone] Social History Tobacco Use Types Packs/Day Years Used Date Never Smoker Smokeless Tobacco: Never Used Alcohol Use Standard Drinks/Week Comments No 0 (1 standard drink = 0.6 oz pure alcoho l) Sex Assigned at Date Recorded Not on file documented as of this encounter Last Filed Vital Signs Vital Sign Reading Time Taken Comments Blood Pressure 152/69 09/20/2017 12:36 PM EDT Pulse 79 09/20/2017 12:36 PM EDT Temperature 36.5 ??C (97.7 ??F) 09/20/2017 12:36 PM EDT Respiratory Rate 18 09/20/2017 12:36 PM EDT Oxygen Saturation 100% 09/20/2017 12:36 PM EDT Inhaled Oxygen Concentration - - Weight 118.6 kg (261 lb 6.4 oz) 09/20/2017 12:36 PM EDT Height 175.3 cm (5' 9) 09/20/2017 12:36 PM EDT Body Mass Index 38.6 09/20/2017 12:36 PM EDT documented in this encounter Progress Notes Ellen Ascencio RN - 09/20/2017 1:00 PM EDT Infusion Note Diagnosis:Anemia Treatment: Procrit Injection Labs: H/H 10.9/34.4 Procrit 20,000 mcg injected SQ in right arm. Patient aware to call clinic with any questions or concerns. Plan: Return to clinic weekly as scheduled with every other week labs. documented in this encounter Plan of Treatment Upcoming Encounters Date Type Specialty Care Team Description 06/19/2022 Office Visit Rheumatology Richi Blackmon MD [facility] DR RHEUMATOLOGY [place], [place] [address] (Wo rk) Scheduled Procedures Name [...] Date Dose Rate Site epoetin matt Given 09/20/2017 12:39 PM 20,000 Units R ight Arm (EPOGEN;PROCRIT) EDT injection 20,000 Units 20,000 Units, Intravenous, ONCE, 1 dose, On Sat09/20/17 at 1300, Routine, What is the indication of use? Chronic Kidney Disease (CKD) documented in this encounter Care Teams Upholstery Trimmer Relationship Specialty Start Date End Date Jazmine Baer MD PCP - General 11/07/10 [address] [place] [address] documented as of this encounter
--- OUTSIDE RECORDS SUMMARY | 2022-04-11 10:50 | XMS_ITS | Encounter Summary ---
:1960 Author Organization [place] [address] Care Team Providers Name Role Phone Jazmine Baer MD Primary Care Provider Encounter Details Date Type Department Care Team Description 12/04/2017 Telephone Gastroenterology at [facility] [place] [address] Social History Tobacco Use Types Packs/Day Years Used Date Never Smoker Smokeless Tobacco: Never Used Alcohol Use Standard Drinks/Week Comments No 0 (1 standard drink = 0.6 oz pure alcoho l) Sex Assigned at Date Recorded Not on file documented as of this encounter Miscellaneous Notes Telephone Encounter - Marlin Mansfield - 12/04/2017 2:34 PM EDT Pt returned call, was able to schedule for early March, added to wait list as well. Telephone Encounter - Oksana Velasquez - 12/04/2017 9:50 AM EDT ?? I wanted this patient to follow-up with [facility] in about 2-3 months Donato documented in this encounter Plan of Treatment Upcoming Encounters Date Type Specialty Care Team Description 06/19/2022 Office Visit Rheumatology Richi Blackmon MD [facility] RHEUMATOLOGY [place], [place] [address] (Wo rk) Scheduled Procedures Name Priority Associated Diagnoses Date/Time EGD, UPPER GI ENDOSCOPY Family hx of colon cance r COLONOSCOPY, DIAGNOSTIC Family hx of colon cance r documented as of this encounter Visit Diagnoses Not on filedocumented in this encounter Care Teams Parking Lot Signaler Relationship Specialty Start Date End Date Jazmine Baer MD PCP - General 11/07/10 [address] [place] [address] documented as of this encounter
--- OUTSIDE RECORDS SUMMARY | 2022-04-11 10:50 | XMS_ITS | Encounter Summary ---
:1960 Author Organization [facility] [place] [address] Care Team Providers Name Role Phone Jazmine Baer MD Primary Care Provider Reason for Visit Reason Comments Chronic Kidney Disease Encounter Details Date Type Department Care Team Description 10/02/2017 Office Visit Nephrology Hypertension Lea Villavicencio MD [facility] NEPHROLOGY DEPT. [place] [phone] CKD [place] [facility] [place] Polisher, A None disease) stage 3, GFR [facility] 30-59 ml/ [place] [address] Social History Tobacco Use Types Packs/Day Years Used Date Never Smoker Smokeless Tobacco: Never Used Alcohol Use Standard Drinks/Week Comments No 0 (1 standard drink = 0.6 oz pure alcoho l) Sex Assigned at Date Recorded Not on file documented as of this encounter Last Filed Vital Signs Vital Sign Reading Time Taken Comments Blood Pressure 134/72 10/02/2017 9:59 AM EDT Pulse 72 10/02/2017 9:59 AM EDT Temperature - - Respiratory Rate - - Oxygen Saturation - - Inhaled Oxygen Concentration - - Weight 120.5 kg (265 lb 9.6 oz) 10/02/2017 9:59 AM EDT Height 175.3 cm (5' 9) 10/02/2017 9:59 AM EDT Body Mass Index 39.22 10/02/2017 9:59 AM EDT documented in this encounter Patient Instructions Patient InstructionsLilibeth Valdez, RN - 10/02/2017 9:40 AM EDT Kidney function tends to change with the IVIG. Make sure you are taking enough fluids to keep your urine color pale yellow. Call if you feel differently (consistent symptoms of nausea, vomiting, little appeal for food, itching, change in sleep patterns, worsening energy levels, shortness of breath). These are some of the signs of worsening kidney function. We will see you sooner if you are not feeling well. Please call. Maria Isabel Valdez RN, [facility] Chronic Kidney Disease Nurse Specialist at [facility]. [phone] documented in this encounter Progress Notes Lea Villavicencio MD - 10/02/2017 9:40 AM EDT [facility] [address] [place] [address] Reason for Clinic Visit: Systems Review and CKD management. 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 No recent gout. NO specific uremic symptoms. Advised to avoid NSAIDs, dehydration. Hydrate prior to IVIG infusions. CK not elevated today History obtained by RN Specialist: This is his first visit to CKD clinic. 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 His indomethacin was stopped recently and replacedwith PRN colchicine which he has not needed since the change was made. No recent gout He is trying to give up soda for weight loss. Review of Systems: Sign/Symptom Comments Energy level/fatigue: fair energy. A little more tired with doing more outside now. Change in sleep patterns: OK; Nocturia: 2x-5x; depending upon fluid before bed Appetite changes: Varies from day to day; not hungry He restricts sugar for diabetes. He doesn't cook with salt Food aversions: Doesn't prefer red meat any more Nausea: 1/7 nausea with ondansetron taken Vomiting: None Bowels: Couple of days; Edema: Trace Shortness of breath: With yard work; needs to pace himself but he has trouble stopping Orthopnea/PND: No PND; 2 pillows Muscle Cramping: In his fingers Cold intolerance: Yes Itching: On his lower legs; occasional neuropathic pain Bruising/bleeding: Nose bleeds every couple of weeks now. This is improved. Mental Status Changes: No change Recent Home Blood Pressure Control: occasionally but not lately Recent Home Diabetic Management: last [id number] Recent Lipid Management: allergic to statins Advance Directives: not interested; How has your health been in the last 4 weeks? Poor, Fair, Good, Very Good, Excellent. Additional CCM Comments: VHAP $15/month plus copays. Insulin is costing him more this year $7. Last year it was covered. He will call to find out why more expensive this year when nothing has changed. He has NSA for charges above Medicare payments. Hepatitis B Status: Serum Testing Date of Testing Results Hep B sAb/Hep B sAg Not tested Vaccination Status: Unknown Education: AAKP Phase One Booklet, Options video, Kidney Beginnings, Decision Aid: none given Anticipated Renal Replacement Therapy Plan: not discussed Transplant evaluation: Not discussed Fistula Date/Type of Initial Access/Surgeon: Not discussed PMH: Patient Active Problem List Diagnosis Code [...] Itching and Rash ??? Morphine Itching ??? Vprocyo-Adj-Uva Reductase Inhibitors Myopathy Medications 10/02/17 1011 Medication Sig Taking? colchicine (COLCRYS) 0.6 mg Tablet Take 0.6 mg by mouth daily. Per direction for acuet gout attack Yes glipiZIDE (GLUCOTROL XL) 10 mg Tablet Extended Rel 24 hr Take 10 mg by mouth daily. Yes allopurinol (ZYLOPRIM) 300 mg Tablet Take 300 mg by mouth daily. Yes HUMALOG KWIKPEN 100 unit/mL Insulin Pen INJECT 40 UNITS SUBCUTANEOUSLY BEFORE MEALS Yes CodotaTOUCH ULTRA TEST Strip TEST DIRECTED THREE TIMES A DAY DIRECTED Yes IMMUNE GLOBULIN,GAMMA,IGG, (IMMUNE GLOBULIN, HUMAN,, IGG, IV) 1,200 mg intravenously twice monthly. Yes UNABLE TO FIND Solumedrol IV with IVIG infusions, once monthly (one bag, one mL). Yes terazosin (HYTRIN) 5 mg Capsule Take 1 capsule by mouth nightly. Yes insulin glargine (LANTUS SOLOSTAR) Insulin Pen 30 units subcutaneously every morning, and 80 units subcutaneously nightly. Yes furosemide (LASIX) 20 mg Tablet Take 1 tablet by mouth daily. Patient taking differently: Take 20 mg by mouth 2 times daily. Yes multivitamin Capsule Take 1 capsule by mouth daily. Yes omeprazole (PRILOSEC) 40 mg capsule Take 1 capsule by mouth daily. Yes ondansetron (ZOFRAN) 4 mg tablet Take 1 tablet by mouth as needed. Yes lisinopril-hydrochlorothiazide (PRINZIDE;ZESTORETIC) 20-12.5 mg per tablet Take 2 tablets by mouth daily. Yes metoprolol succinate (TOPROL-XL) 50 mg Tablet Sustained Release 24 hr Take 50 mg by mouth daily. Physical Exam: BP 134/72 Pulse 72 Ht 175.3 cm (5' 9) Wt 120.5 kg (265 lb 9.6 oz) BMI 39.22 kg/m2 General appearance Appears well, alert Head Atraumatic Eyes No [...] for BUCKY BETH ( ) as of 10/02/2017 14:30 05/24/2017 11:43 07/02/2017 13:24 09/02/2017 10:17 10/02/2017 08:38 WBC 5.6 5.4 3.5 (L) 4.1 RBC 2.98 (L) 3.24 (L) 3.72 (L) 3.91 (L) Hemoglobin 9.8 (L) 10.4 (L) 10.9 (L) 11.2 (L) Hematocrit 29.2 (L) 32.4 (L) 34.4 (L) 36.0 (L) MCV 98.0 (H) 100.0 (H) 92.5 92.1 MCH 32.9 (H) 32.1 29.3 28.6 MCHC 33.6 32.1 31.7 (L) 31.1 (L) RDWSD 59.7 (H) 56.1 (H) 50.5 (H) 55.1 (H) RDWCV 16.7 (H) 15.2 (H) 14.8 (H) 16.6 (H) Platelets 76 (L) 73 (L) 66 (L) 90 (L) MPV 13.0 (H) 11.[address] % 2.[address] 0.070 0.030 Immature Retic% 20.8 (H) 7.9 Reticulated Hgb 35.3 33.8 nRBC % Auto 0.0 0.0 0.0 0.0 nRBC Abs Auto 0.000 0.000 0.000 0.000 Neutr Abs (ANC) 4.28 3.89 2.14 2.57 Neutrophils % 76.5 71.7 60.6 63.0 Immature Gran % 0.50 0.40 0.30 0.50 Lymphocytes % 15.5 13.7 18.7 17.9 Monocytes % 7.0 7.0 7.4 7.4 Eosinophils % 0.5 6.3 11.3 10.0 Basophils % 0.0 0.9 1.7 1.2 Tamara Gran Abs 0.03 0.02 0.01 0.02 Lymphocytes Abs 0.9 0.7 (L) 0.7 (L) 0.7 (L) Monocyte Abs 0.4 0.4 0.3 0.3 Eosinophils Abs 0.0 0.3 0.4 0.4 Basophils Abs 0.0 0.0 0.1 0.0 Sed Rate 91 (H) Sodium 135 134 (L) 135 Potassium 3.6 5.0 4.9 Chloride 101 97 (L) 99 CO2 20 (L) 21 (L) 22 Anion Gap 14 16 (H) 14 BUN 87 (H) 62 (H) 54 (H) Creatinine 2.18 (H) 1.82 (H) 1.87 (H) 2.28 (H) Estimated GFR 31 (L) 38 (L) 37 (L) 30 (L) Glucose Lvl 308 (H) 310 (H) 394 (H) Calcium 8.6 9.0 9.5 Phosphorus 3.8 Uric Acid 6.1 Total Protein 9.4 (H) 8.0 Albumin 3.2 3.7 3.9 Total Bilirubin 0.4 0.4 Alk Phos 103 145 (H) AST 23 27 ALT 24 23 Ferritin 436 (H) 154 Iron 51 50 TIBC 312 332 Iron Saturation 16 (L) 15 (L) CK, Total 89 PTH 33 Alb/Cr Ratio, Random 10 U Albumin Conc, Random 3.5 U Creatinine 36 Problem/Goal/Assessment/Plan: Problem: Chronic Kidney Disease Goal: Reduce rate of progression Education for CKD Stage specific issues Results: Estimated GFR (MDRD): 30 ml/min/1.73m2 CKD Stage G3b A 1 - Potassium level - 4.9 - CO2 level - 22 -uric acid - 6.1 Changes discussed with RN Specialist: Kidney function tends to change with the IVIG. Make sure you are taking enough fluids to keep your urine color pale yellow. Call if you feel differently (consistent symptoms of nausea, vomiting, little appeal for food, itching, change in sleep patterns, worsening energy levels, shortness of breath). These are some of the signs of worsening kidney function. We will see you sooner if you are not feeling well. Please call. Maria Isabel Valdez RN, [facility] Chronic Kidney Disease Nurse Specialist at [facility]. [phone] Problem: Management of Anemia related to Chronic Kidney Disease (CKD) Goal:P Hgb 9.5-10.9 g/dl Ferritin>100ng/ml TSAT>20% Today's Results Hgb - 11.2 Ferritin - 154 TSAT - 15 Receiving erythropoetic stimulating agent? Yes Start Date: Drug/Dose/Frequency: Where administered (clinic/hosp/home): Patient's anemia is managed by hematology in [facility]. Iron Supplement; Date : Fall 2016 Problem: Hypertension Goal: Urine alb:cr ratio <30mg/g - 140/90, Urine alb:cr ratio > 30mg/g - 130/80 Sodium intake < 2 Gm per day. Results: BP today - 134/72 Problem: Proteinuria Goal: Alb:Cr ratio < 30mg/g Today's results: Alb:Cr ratio 10 Changes discussed with RN Specialist: Patient takes lisinopril-HCTZ 20-12.5ng 2 tabs per day. Problem: Bone Disease Goal: Stage 3 PTH: 35-70 pg/ml Phos 2.7-4.6 Ca 8.5-10.5mg/dl Stage 4 PTH: 70-110 pg/ml Phos 2.7-4.6 Ca 8.5-10.5mg/dl Stage 5 PTH: 150-300 pg/ml Phos 3.5-5.5 Ca 8.5-10.5mg/dl Results: PTH today -33 (pt not taking calcitriol) Phos today -3.8 (pt not taking binders) Calcium today - 9.5 Problem: Nutrition Goal: Albumin > 4.0gm/dl BMI 20-25 kg/m2 Results: Albumin today - 3.9 Problem: Diabetes Goal: HA1C ~ 7.0% Results: HA1C not checked today - Random Glucose - 394 Problem: Dyslipidemia Goal: LDL < 100 mg/dl Results: LDL not checked today - Changes discussed with RN Specialist: Allergic to statins. Summary: Progressive stage 3B CKD without proteinuria most likley secondary to chronic IVIG toxicity+/- atypical diabetic nephropathy. No recent gout. NO specific uremic symptoms. Advised to avoid NSAIDs, dehydration. Hydrate prior to IVIG infusions. CK not elevated today. If continues to progress with consider renal biopsy ?? Uremic symptoms: none specificas detailed above ?? Glycemic control: Inadequate based on RBS today ?? Hypertension well controlled on current medications ?? Hyperuricemia without gout. Target uric acid < 5-8 mg/dl for prevention of progression of CKD.Currently at or below target ?? 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 Target serum bicarbonate at or greater than 22 mEq/l. Treatment improves protein metabolism, bone health, and may improve renal function. At or above target ?? Anemia -Continue GREGOR and parenteral iron per hematology ?? Hyperphosphatemia: Avoid high phosphate foods / No current indication for phosphate binders ?? [...] MD [facility] DR RHEUMATOLOGY [place] [id number] (Wo rk) Scheduled Procedures Name Priority Associated Diagnoses Date/Time EGD, UPPER GI ENDOSCOPY Family hx of colon cance r COLONOSCOPY, DIAGNOSTIC Family hx of colon cance r documented as of this encounter Results Uric acid (10/02/2017 8:38 AM EDT) athologist Signature Uric Acid 6.1 3.5 - 8.5 [place] mg/dL [facility] Specimen Anatomical Collection Method Collection Time Receive d Time (Source) Location / / Volume Laterality Blood specimen 10/02/2017 8:38 AM 018 8:47 (specimen) EDT AM EDT Resulting Agency Comment Spec In Lab Lea Villavicencio MD CHEMISTRY ORDERABLES Performing Organization Address City/State/[place] [address] PTH (10/02/2017 8:38 AM EDT) athologist Signature PTH 33 15 - 65 [place] pg/mL [facility] Specimen Anatomical Collection Method Collection Time Receive d Time (Source) Location / / Volume Laterality Blood specimen 10/02/2017 8:38 AM 018 8:47 (specimen) EDT AM EDT Resulting Agency Comment Spec In Lab Lea Villavicencio MD CHEMISTRY ORDERABLES Performing Organization Address City/[facility]/ZIP Code Phon e Number [address] Albumin Level (10/02/2017 8:38 AM EDT) P athologist Signature Albumin 3.9 3.2 - 5.2 [facility] [place] gm/dL [facility] Specimen Anatomical Collection Method Collection Time Receive d Time (Source) Location / / Volume Laterality Blood specimen 10/02/2017 8:38 AM 018 8:47 (specimen) EDT AM EDT Resulting Agency Comment Spec In Lab Lea Villavicencio MD CHEMISTRY ORDERABLES Performing Organization Address City/[facility]/[place] [address] Phosphorus (10/02/2017 8:38 AM EDT) P athologist Signature Phosphorus 3.8 2.5 - 4.5 [place] mg/dL [facility] Specimen Anatomical Collection Method Collection Time Receive d Time (Source) Location / / Volume Laterality Blood specimen 10/02/2017 8:38 AM 018 8:47 (specimen) EDT AM EDT Resulting Agency Comment Spec In Lab Lea Villavicencio MD CHEMISTRY ORDERABLES Performing Organization Address City/[facility]/ZIP [facility] [place] [address] (ABNORMAL) Basic Metabolic Panel (non-fasting) (10/02/2017 8:38 AM EDT) P athologist Signature Glucose Lvl 394 (H) 65 - 199 [facility] mg/dL [facility] Comment: Diabetes: >=200 mg/dL plus symp toms BUN 54 (H) 10 - 20 mg/dL [facility] Creatinine 2.28 (H) 0.80 - 1.50 mg/dL [facility] Sodium 135 135 - 145 mmol/L [facility] Potassium 4.9 3.5 - 5.0 mmol/L [facility] Comment: Please note: ??Patients with WBC >100,00 0 may have falsely elevated Potassium levels. ??For accurate Potassium quantif ication in these patients send serum separator tube (gold top) for subsequent determinations. ??Contact the Clinical Chemistry Laboratory if there are any qu estions. Chloride 99 98 - 107 mmol/L [facility] CO2 22 22 - 31 mmol/L [facility] Anion Gap 14 5 - 15 mmol/L [facility] Calcium 9.5 8.5 - 10.5 mg/dL [facility] Estimated GFR 30 (L) >=60 [facility] Comment: The reported eGFR should be multiplied b y 1.2 for patients. The MDRD is not an appropriate measure o f renal function for patients with body mass extremes or in patients with acute kidney failure. http://[employer]/DHnkdep http://[employer]/DHMCnkf Specimen Anatomical Collection Method Collection Time Receive d Time (Source) Location / / Volume Laterality Blood specimen 10/02/2017 8:38 AM 018 8:47 (specimen) EDT AM EDT Resulting Agency Comment Spec In Lab Lea Villavicencio MD CHEMISTRY ORDERABLES Performing Organization Address City/State/ZIP Code Phon e Number [place] [phone] documented in this encounter Visit Diagnoses Diagnosis CKD (chronic kidney disease) stage 3, GF R 30-59 ml/min Chronic kidney disease, Stage III (moder ate) documented in this encounter Care Teams Industrial Automation Specialist Relationship Specialty Start Date End Date Jazmine Baer MD PCP - General 11/07/10 [address] [place] [address] documented as of this encounter
--- OUTSIDE RECORDS SUMMARY | 2022-04-11 10:50 | XMS_ITS | Encounter Summary ---
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 Type 2 di abetes mellitus with complication, with long-term [place] [id number] Social History Tobacco Use Types Packs/Day Years [...] Visit Rheumatology Richi Blackmon MD [facility] [address] RHEUMATOLOGY [place], [place] [address] (Wo rk) Scheduled Procedures Name Priority Associated Diagnoses Date/Time EGD, UPPER GI ENDOSCOPY Family hx of colon cance r COLONOSCOPY, DIAGNOSTIC Family hx of colon cance r documented as of this encounter Procedures Procedure Name Priority Date/Time Associated Comments Diagnosis HEMOGRAM Routine 10/30/2017 1:15 PM Liver cirrhosis Result s for this EDT secondary to CATINA H procedure are in Iron deficiency the results anemia, unspecified section. iron deficiency anemia type DIFFERENTIAL, Routine 10/30/2017 1:15 PM Liver cirrhosis Resul ts for this AUTOMATED EDT secondary to CATINA H procedure are in Iron deficiency the results anemia, unspecified section. iron deficiency anemia type PROTHROMBIN TIME Routine 10/30/2017 1:15 PM Liver cirrhosis Re sults for this EDT secondary to HORTON procedure are in the results section. CBC (WITH DIFF) Routine 10/30/2017 1:15 PM Liver cirrhosis EDT secondary to CATINA H Iron deficiency anemia, unspecified iron deficiency anemia type HEMOGLOBIN A1C Routine 10/30/2017 1:15 PM Type 2 diabetes Resu lts for this EDT mellitus with procedure are in complication, with the resul ts long-term current section. use of insulin COMPREHENSIVE Routine 10/30/2017 1:15 PM Liver cirrhosis Resul ts for this METABOLIC PANEL EDT secondary to HORTON procedu re are in (NON-FASTING) the results section. documented in this encounter Results (ABNORMAL) Differential, Automated (10/30/2017 1:15 PM EDT) [facility] gist Method Time Signature Neutrophils % 65.9 % [facility] Neutr Abs (ANC) 2.60 1.70 - [facility] 6.10 [facility] x10(3)/[facility] LABORATORY Lymphocytes % 15.7 % [facility] Lymphocytes Abs 0.6 (L) 0.9 - 3.2 [facility] x10(3)/[facility] LABORATORY Monocytes % 5.6 % [facility] Monocyte Abs 0.2 (L) 0.3 - 0.9 [facility] x10(3)/[facility] LABORATORY Eosinophils % 11.2 % [facility] Eosinophils Abs 0.4 0.0 - 0.4 [facility] x10(3)/[facility] LABORATORY Basophils % 1.3 % [facility] Basophils Abs 0.0 0.0 - 0.1 [facility] x10(3)/[facility] LABORATORY Immature Gran % 0.30 % [facility] Comment: Immature granulocytes(IG's)percentage an d absolute count will include metamyelocytes, myelocytes, and promyelo cytes. Blood smears from CBCs yielding IG's will be scanned manually for conczeinab dangina. If this scan disagrees with the automated IG or if promyelocytes are not ed, a manual differential will be performed. Tamara Gran Abs 0.01 0.00 - 0.04 x10(3)/[facility] LABORATORY Specimen Anatomical Collection Method Collection Time Receive d Time (Source) Location / / Volume Laterality Blood specimen 10/30/2017 1:15 PM 018 1:19 (specimen) EDT PM EDT Resulting Agency Comment Spec In Lab Akash LARES HEMATOLOGY ORDERABLES Performing Organization Address City/State/[place] [address] (ABNORMAL) Hemogram (10/30/2017 1:15 PM EDT) Analysis Performed At Patho logist Time Signature WBC 3.9 (L) 4.0 - 9.5 [facility] x10(3)/[facility] LABORATORY RBC 3.66 (L) 4.58 - [facility] 5.54 [facility] x10(6)/[facility] LABORATORY Hemoglobin 10.5 (L) 13.7 - [facility] 16.5 gm/dL [facility] Hematocrit 33.2 (L) 40.5 - [facility] 48.5 % [facility] MCV 90.7 82.9 - [facility] 93.1 [facility] LABORATORY MCH 28.7 27.5 - [facility] 32.1 pg [facility] MCHC 31.6 (L) 32.0 - [facility] 35.7 gm/dL [facility] Platelets 76 (L) 145 - 357 [facility] x10(3)/[facility] LABORATORY RDWSD 53.7 (H) 36.0 - [facility] 45.0 [facility] LABORATORY RDWCV 16.5 (H) 11.4 - [facility] 13.8 % [facility] MPV 12.3 7.6 - 12.9 [facility] LABORATORY nRBC % Auto 0.0 % [facility] nRBC Abs Auto 0.000 0.000 - [facility] 0.000 [facility] x10(3)/[facility] LABORATORY Specimen Anatomical Collection Method Collection Time Receive d Time (Source) Location / / Volume Laterality Blood specimen 10/30/2017 1:15 PM 018 1:19 (specimen) EDT PM EDT Resulting Agency Comment Spec In Lab Akash LARES HEMATOLOGY ORDERABLES Performing Organization Address City/State/[place] [address] (ABNORMAL) Hemoglobin A1c (10/30/2017 1:15 PM EDT) [facility] gist Method Time Signature Hemoglobin A1C 10.1 (H) 4.3 - 5.6 [facility] Comment: Reference Range: 4.3 - 5.6% [...] Mellitus, Diabetes Care 2013; 36: Suppl. 1, S67-56 Est Avg Gluc 243 mg/dL [facility] Comment: eAG equivalents for HbA1c percentages: HbA1c(%) ?eAG(mg/dL) 6.0 ?126 6.5 ?140 7.0 ?154 7.5 ?169 8.0 ?183 8.5 ?197 9.0 ?212 9.5 ?226 10.0 ? 240 Limitations: The eAG calculation has not been validated on women, individuals below 18 years old and above 70 years old, and individuals with hemoglobinopathies. Additional resources are available on [facility] website. José FLORES, Chaz J, Jeff R, et al. ??Tr anslating the A1C assay into estimated average glucose values. ??Diabetes Care 2008:31(8):8928-3758. Specimen Anatomical Collection Method Collection Time Receive d Time (Source) Location / / Volume Laterality Blood specimen 10/30/2017 1:15 PM 018 1:19 (specimen) EDT PM EDT Resulting Agency Comment Spec In Lab Rhiannon Headley MD CHEMISTRY ORDERABLES Performing Organization Address City/[facility] [address] Prothrombin Time (10/30/2017 1:15 PM EDT) athologist Signature PT 11.8 9.4 - 12.5 [facility] LABORATORY INR 1.1 [facility] Comment: An INR <2.0 indicates [...] Location / / Volume Laterality Blood specimen 10/30/2017 1:15 PM 018 1:19 (specimen) EDT PM EDT Resulting Agency Comment Spec In Lab Rhiannon Headley MD HEMATOLOGY ORDERABLES Performing Organization Address [facility] [place] [address] (ABNORMAL) Comprehensive metabolic panel (non-fasting) (10/30/2017 1:15 PM EDT) P athologist Signature Glucose Lvl 365 (H) 65 - 199 [facility] mg/dL [facility] Comment: Diabetes: >=200 mg/dL plus symp toms BUN 71 (H) 10 - 20 mg/dL [facility]OR[facility]ORY Creatinine 3.62 (H) 0.80 - 1.50 mg/dL [facility] Sodium 133 (L) 135 - 145 mmol/L [facility] Potassium 4.9 3.5 - 5.0 mmol/L [facility] Comment: Please note: ??Patients with WBC >100,00 0 may have falsely elevated Potassium levels. ??For accurate Potassium quantif ication in these patients send serum separator tube (gold top) for subsequent determinations. ??Contact the Clinical Chemistry Laboratory if there are any qu estions. Chloride 99 98 - 107 mmol/L [facility] CO2 17 (L) 22 - 31 mmol/L [facility] Anion Gap 17 (H) 5 - 15 mmol/L [facility] Calcium 8.5 8.5 - 10.5 mg/dL [facility] Total Protein 7.7 6.1 - 8.0 gm/dL [facility] Albumin 3.5 3.2 - 5.2 gm/dL [facility] AST 25 0 - 39 unit/L [facility] ALT 26 0 - 55 unit/L [facility] Alk Phos 141 (H) 40 - 120 unit/L [facility] Total Bilirubin 0.5 0.2 - 1.3 mg/dL [facility] Estimated GFR 17 (L) >=60 [facility] Comment: The reported eGFR should be multiplied b y 1.2 for patients. The MDRD is not an appropriate measure o f renal function for patients with body mass extremes or in patients with acute kidney failure. 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
--- OUTSIDE RECORDS SUMMARY | 2022-04-11 10:50 | XMS_ITS | Encounter Summary ---
:1960 Author Organization [facility] [place] [address] Care Team Providers Name Role Phone Jazmine Baer MD Primary Care Provider Reason for Visit Reason Comments Injections Epogen Encounter Details Date Type Department Care Team Description 12/06/2017 Infusion Hematology Oncology at [facility] in chronic kidney [facility] disease, unspecified CKD [address] [place], [place] [phone] Social History Tobacco Use Types Packs/Day Years Used Date Never Smoker Smokeless Tobacco: Never Used Alcohol Use Standard Drinks/Week Comments No 0 (1 standard drink = 0.6 oz pure alcoho l) Sex Assigned at Date Recorded Not on file documented as of this encounter Last Filed Vital Signs Vital Sign Reading Time Taken Comments Blood Pressure 139/67 12/06/2017 12:16 PM EDT Pulse 66 12/06/2017 12:16 PM EDT Temperature 36.9 ??C (98.4 ??F) 12/06/2017 12:16 PM EDT Respiratory Rate 16 12/06/2017 12:16 PM EDT Oxygen Saturation 100% 12/06/2017 12:16 PM EDT Inhaled Oxygen Concentration - - Weight - - Height - - Body Mass Index - - documented in this encounter Progress Notes Anjali Barriga RN - 12/06/2017 1:00 PM EDT Infusion Note Diagnosis:Anemia Due [...] Richi Blackmon MD [facility] [address] RHEUMATOLOGY [place], [place] [address] (Wo rk) Scheduled Procedures Name [...] Date Dose Rate Site epoetin matt Given 12/06/2017 12:19 PM 20,000 Units R ight Arm (EPOGEN;PROCRIT) EDT injection 20,000 Units 20,000 Units, Subcutaneous, ONCE, 1 dose, On Sat12/06/17 at 1300, Routine, What is the indication of use? Chronic Kidney Disease (CKD) documented in this encounter Care Teams Final Operations Technician Relationship Specialty Start Date End Date Jazmine Baer MD PCP - General 11/07/10 [address] [place] [address] documented as of this encounter
--- OUTSIDE RECORDS SUMMARY | 2022-04-11 10:50 | XMS_ITS | Encounter Summary ---
:1960 Author Organization [facility] [place] [address] Care Team Providers Name Role Phone Jazmine Baer MD Primary Care Provider Encounter Details Date Type Department Care Team Description 03/25/2018 Orders Only Hematology and Oncology at [facility] Karen arevalo APRN [facility] Hilda shafer HEMATOLOGY/[place] [address] DEPT. [phone] [place], [place] [address] (Wo rk) Social History Tobacco [...] Rheumatology Richi Blackmon MD [facility] ER RHEUMATOLOGY [place]P [place], [place] [address] (Wo rk) Scheduled Procedures Name Priority Associated Diagnoses Date/Time EGD, UPPER GI ENDOSCOPY Family hx of colon cance r COLONOSCOPY, DIAGNOSTIC Family hx of colon cance r documented as of this encounter Visit Diagnoses Not on filedocumented in this encounter Care Teams Fur Blender Relationship Specialty Start Date End Date Jazmine Baer MD PCP - General 11/07/10 [address] [place], [place] [address] documented as of this encounter
--- OUTSIDE RECORDS SUMMARY | 2022-04-11 10:50 | XMS_ITS | Encounter Summary ---
:1960 Author Organization [facility] [place] [address] Care Team Providers Name Role Phone Jazmine Baer MD Primary Care Provider Encounter Details Date Type Department Care Team Description 12/31/2017 Office Visit Neurology at [facility] Henrry Gleason MD [facility] [place] [address] NEUROLOGY DEPT. [phone] [place], [place] [address] (Wo rk) Social History Tobacco Use Types Packs/Day Years Used Date Never Smoker Smokeless Tobacco: Never Used Alcohol Use Standard Drinks/Week Comments No 0 (1 standard drink = 0.6 oz pure alcoho l) Sex Assigned at Date Recorded Not on file documented as of this encounter Last Filed Vital Signs Vital Sign Reading Time Taken Comments Blood Pressure 132/61 12/31/2017 1:35 PM EDT Pulse 66 12/31/2017 1:35 PM EDT Temperature - - Respiratory Rate - - Oxygen Saturation - - Inhaled Oxygen Concentration - - Weight 122.5 kg (270 lb) 12/31/2017 1:35 PM EDT Height 175.3 cm (5' 9) 12/31/2017 1:35 PM EDT reported Body Mass Index 39.87 12/31/2017 1:35 PM EDT documented in this encounter Progress Notes Henrry Gleason MD - 12/31/2017 2:00 PM EDT 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 Getting IV solumedrol every 4 wks (1 gm). BS's under good control. His CPK ??was 2300 in December. CK 644 on 02/29/16.??CK on [id number]. CK most recently 179 (early August,). Last CK was 95 three weeks ago.??He is now walking rarely with a walker and mostly just a cane. Wt is 265 today. Not losing much weight. ?? Renal says his kidneys are working well at the moment. ? It is not felt that the imuran had anything to do with his gout flair up. He may have been dehydrated. ? Reduced the IV solumedrol to 1 day per month. IVIG 2 days/per mos. HGBA1C was 10.3 three months ago. ? Port working great. ? Using treadmill 10-20??mins/day ? Seeing Dr. Ignacio. Going to restart the iron and procrit infusions. ? He denies any bowel or bladder dysfunction or any shortness of breath or chest Pain.??No leg swelling with Lasix. ? On exam CN'2 2-12 OK. Arms are full strength now. He has 5/5 weakness in the iliopsoas bilaterally and normal strength distally in his lower extremities. He is areflexic in LE's, nl in UE's. His sensory exam is normal.?? He has no major atrophy of his muscles. Walks with cane. ? Will try to followup with him in . He is to contact me with any questions. Regimen will be continuedup custer as will blood draws. He is doing very well. Needs to lose weight and improve BS control. ?? documented in this encounter Plan of Treatment Upcoming Encounters Date Type Specialty Care Team Description 06/19/2022 Office Visit Rheumatology Richi Blackmon MD [facility] DR RHEUMATOLOGY [place], [place] [address] (Wo rk) Scheduled Procedures Name Priority Associated Diagnoses Date/Time EGD, UPPER GI ENDOSCOPY Family hx of colon cance r COLONOSCOPY, DIAGNOSTIC Family hx of colon cance r documented as of this encounter Visit Diagnoses Diagnosis Myopathy Myopathy, unspecified documented in this encounter Care Teams Phlebotomy Services Representative Relationship Specialty Start Date End Date Jazmine Baer MD PCP - General 11/07/10 [address] [place] [address] documented as of this encounter
--- OUTSIDE RECORDS SUMMARY | 2022-04-11 10:50 | XMS_ITS | Encounter Summary ---
:1960 Author Organization [place] [address] Care Team Providers Name Role Phone Jazmine Baer MD Primary Care Provider Encounter Details Date Type Department Care Team Description 12/31/2017 Hospital Encounter Hematology and Anemia, unspecified type; Oncology at [facility] Acute renal failure superimp osed on stage 3 chronic kidney disease, unspecified acute renal failure type; [facility] CKD (concessions manager idalmis kidney disease) stage 3, GFR 30-59 ml/[place] [phone] Social History Tobacco Use Types Packs/Day [...] Rheumatology Richi Blackmon MD [facility] [address] RHEUMATOLOGY [place], [place] [address] (Wo rk) Scheduled Orders Name Type Priority Associated Diagnoses Order S chedule Basic Metabolic Panel Lab Routine CKD (chronic kidney 1 Occurrences starting (non-fasting) disease) stage 3, GFR 12/31 until 30-59 ml/min 12/31/2017 Scheduled Procedures Name Priority Associated Diagnoses Date/Time EGD, UPPER GI ENDOSCOPY Family hx of colon cance r COLONOSCOPY, DIAGNOSTIC Family hx of colon cance r documented as of this encounter Procedures Procedure Name Priority Date/Time Associated Diagnosis Comme nts PTH Routine 12/31/2017 10:22 CKD (chronic kidney Resu lts for this AM EDT disease) stage 3, procedure are in GFR 30-59 ml/min the results section. HEMOGRAM Routine 12/31/2017 10:22 Anemia, unspecified Resu lts for this AM EDT type procedure are i n the results section. DIFFERENTIAL, Routine 12/31/2017 10:22 Anemia, unspecified Res ults for this AUTOMATED AM EDT type procedure are i n the results section. IRON AND TIBC Routine 12/31/2017 10:22 Anemia, unspecified Res ults for this AM EDT type procedure are i n the results section. CBC (WITH DIFF) Routine 12/31/2017 10:22 Anemia, unspecified AM EDT type PHOSPHORUS Routine 12/31/2017 10:22 CKD (chronic kidney Resu lts for this AM EDT disease) stage 3, procedure are in GFR 30-59 ml/min the results section. FERRITIN Routine 12/31/2017 10:22 Anemia, unspecified Resu lts for this AM EDT type procedure are i n the results section. CK Routine 12/31/2017 10:22 CKD (chronic kidney Resu lts for this AM EDT disease) stage 3, procedure are in GFR 30-59 ml/min the results section. ALBUMIN LEVEL Routine 12/31/2017 10:22 CKD (chronic kidney Res ults for this AM EDT disease) stage 3, procedure are in GFR 30-59 ml/min the results section. COMPREHENSIVE Routine 12/31/2017 10:22 Anemia, unspecified Res ults for this METABOLIC PANEL AM EDT type procedure ar e in (NON-FASTING) the results section. BASIC METABOLIC PANEL Routine 12/31/2017 10:22 Acute renal fay lure Results for this (NON-FASTING) AM EDT superimposed on procedure a re in stage 3 chronic the results kidney disease, section. unspecified acute renal failure type documented in this encounter Results CK (12/31/2017 10:22 AM EDT) P athologist Signature CK, Total 82 0 - 200 [facility] Specimen Anatomical Collection Method Collection Time Receive d Time (Source) Location / / Volume Laterality Blood specimen 12/31/2017 10:22 8 (specimen) AM EDT 10:43 AM EDT Resulting Agency Comment Spec In Lab Lea Villavicencio MD CHEMISTRY ORDERABLES Performing Organization Address City/State/[place] [address] PTH (12/31/2017 10:22 AM EDT) P athologist Signature PTH 50 15 - 65 [place] pg/mL [facility] Specimen Anatomical Collection Method Collection Time Receive d Time (Source) Location / / Volume Laterality Blood specimen 12/31/2017 10:22 8 (specimen) AM EDT 10:43 AM EDT Resulting Agency Comment Spec In Lab Lea Villavicencio MD CHEMISTRY ORDERABLES Performing Organization Address City/[facility]/[place]IP [place] [address] Phosphorus (12/31/2017 10:22 AM EDT) P athologist Signature Phosphorus 3.0 2.5 - 4.5 [place] mg/dL [facility] Specimen Anatomical Collection Method Collection Time Receive d Time (Source) Location / / Volume Laterality Blood specimen 12/31/2017 10:22 8 (specimen) AM EDT 10:43 AM EDT Resulting Agency Comment Spec In Lab Lea Villavicencio MD CHEMISTRY ORDERABLES Performing Organization Address City/[facility]/[place]IP [place] [address] Albumin Level (12/31/2017 10:22 AM EDT) P athologist Signature Albumin 3.7 3.2 - 5.2 [place] gm/dL [facility] Specimen Anatomical Collection Method Collection Time Receive d Time (Source) Location / / Volume Laterality Blood specimen 12/31/2017 10:22 8 (specimen) AM EDT 10:43 AM EDT Resulting Agency Comment Spec In Lab Lea Villavicencio MD CHEMISTRY ORDERABLES Performing Organization Address City/[facility]/[place]IP [place] [address] (ABNORMAL) Basic Metabolic Panel (non-fasting) (12/31/2017 10:22 AM EDT) P athologist Signature Glucose Lvl 248 (H) 65 - 199 [facility] mg/dL [facility] Comment: Diabetes: >=200 mg/dL plus symp toms BUN 44 (H) 10 - 20 mg/dL [facility] Creatinine 1.62 (H) 0.80 - 1.50 mg/dL [facility] Sodium 140 135 - 145 mmol/L [facility] Potassium 4.4 3.5 - 5.0 mmol/L [facility] Comment: Please note: ??Patients with WBC >100,00 0 may have falsely elevated Potassium levels. ??For accurate Potassium quantif ication in these patients send serum separator tube (gold top) for subsequent determinations. ??Contact the Clinical Chemistry Laboratory if there are any qu estions. Chloride 103 98 - 107 mmol/L [facility] CO2 20 (L) 22 - 31 mmol/L [facility] Anion Gap 17 (H) 5 - 15 mmol/L [facility] Calcium 9.1 8.5 - 10.5 mg/dL [facility] Estimated GFR 46 (L) >=60 mL/min/1.73 m?? [facility] Comment: The eGFR was calculated using the CKD-EP I equation. As with all creatinine based estimates of kidney function, eGFR values calculated with the CKD-EPI equation are not accurate in patients wi th acute kidney failure, extremes of body mass or the acutely ill. http://[employer]/DHnkdep http://[employer]/DHMCnkf eGFR 53 (L) >=60 mL/min/1.73 m?? [facility] Comment: The eGFR was calculated using the CKD-EP I equation. As with all creatinine based estimates of kidney function, eGFR values calculated with the CKD-EPI equation are not accurate in patients wi th acute kidney failure, extremes of body mass or the acutely ill. http://[employer]/DHnkdep http://[employer]/DHMCnkf Specimen Anatomical Collection Method Collection Time Receive d Time (Source) Location / / Volume Laterality Blood specimen 12/31/2017 10:22 8 (specimen) AM EDT 10:43 AM EDT Resulting Agency Comment Spec In Lab Rhiannon Headley MD CHEMISTRY ORDERABLES Performing Organization Address City/State/[place] [address] (ABNORMAL) Differential, Automated (12/31/2017 10:22 AM EDT) [facility] gist Method Time Signature Neutrophils % 61.0 % [facility] Neutr Abs (ANC) 2.32 1.70 - [facility] 6.10 [facility] x10(3)/[facility] LABORATORY Lymphocytes % 17.4 % [facility] Lymphocytes Abs 0.7 (L) 0.9 - 3.2 [facility] x10(3)/[facility] LABORATORY Monocytes % 11.3 % [facility] Monocyte Abs 0.4 0.3 - 0.9 [facility] x10(3)/[facility] LABORATORY Eosinophils % 8.9 % [facility] Eosinophils Abs 0.3 0.0 - 0.4 [facility] x10(3)/[facility] LABORATORY Basophils % 1.1 % [facility] Basophils Abs 0.0 0.0 - 0.1 [facility] x10(3)/[facility] LABORATORY Immature Gran % 0.30 % [facility] Comment: Immature granulocytes(IG's)percentage an d absolute count will include metamyelocytes, myelocytes, and promyelo cytes. Blood smears from CBCs yielding IG's will be scanned manually for concor dance. If this scan disagrees with the automated IG or if promyelocytes are not ed, a manual differential will be performed. Tamara Gran Abs 0.01 0.00 - 0.04 x10(3)/[facility]ATORY Specimen Anatomical Collection Method Collection Time Receive d Time (Source) Location / / Volume Laterality Blood specimen 12/31/2017 10:22 8 (specimen) AM EDT 10:43 AM EDT Resulting Agency Comment Spec In Lab Estephania House MD HEMATOLOGY ORDERABLES Performing Organization Address City/State/[place] [address] (ABNORMAL) Hemogram (12/31/2017 10:22 AM EDT) Analysis Performed At Patho logist Time Signature WBC 3.8 (L) 4.0 - 9.5 [facility] x10(3)/[facility] LABORATORY RBC 3.61 (L) 4.58 - [facility]54 [facility] x10(6)/[facility] LABORATORY Hemoglobin 10.7 (L) 13.7 - [facility] 16[facility] gm/dL [facility] Hematocrit 33.7 (L) 40.5 - [facility] 48.5 % [facility] MCV 93.4 (H) 82.9 - [facility] 93.1 [facility] LABORATORY MCH 29.6 27.5 - [facility] 32.1 pg [facility] MCHC 31.8 (L) 32.0 - [facility] 35.7 gm/dL [facility] Platelets 99 (L) 145 - 357 [facility] x10(3)/[facility] LABORATORY RDWSD 62.0 (H) 36.0 - [facility] 45.0 [facility] LABORATORY RDWCV 18.0 (H) 11.4 - [facility] 13.8 % [facility] MPV 12.0 7.6 - 12.9 [facility] LABORATORY nRBC % Auto 0.0 % [facility] nRBC Abs Auto 0.000 0.000 - [facility] 0.000 [facility] x10(3)/[facility] LABORATORY Specimen Anatomical Collection Method Collection Time Receive d Time (Source) Location / / Volume Laterality Blood specimen 12/31/2017 10:22 8 (specimen) AM EDT 10:43 AM EDT Resulting Agency Comment Spec In Lab Estephania House MD HEMATOLOGY ORDERABLES Performing Organization Address City/State/[place] [address] (ABNORMAL) Ferritin (12/31/2017 10:22 AM EDT) athologist Signature Ferritin 28 (L) 30 - 400 [facility] J[facility]INO ng/mL [facility] Comment: Pediatric reference ranges not verified at [facility], interpret with caution. Reference ranges for females greater kayleigh n 50 years of age approach values for men, i.e., 30-400 ng/mL. Specimen Anatomical Collection Method Collection Time Receive d Time (Source) Location / / Volume Laterality Blood specimen 12/31/2017 10:22 8 (specimen) AM EDT 10:43 AM EDT Resulting Agency Comment Spec In Lab Jayden Ignacio MD CHEMISTRY ORDERABLES Performing Organization Address City/[facility]/[place]IP [place] [address] (ABNORMAL) Iron and TIBC (12/31/2017 10:22 AM EDT) athologist Signature Iron 28 (L) 45 - 160 [facility] mcg/dL [facility] TIBC 419 250 - 450 [facility] mcg/dL [facility] Iron Saturation 7 (L) 20 - 50 % [facility] Specimen Anatomical Collection Method Collection Time Receive d Time (Source) Location / / Volume Laterality Blood specimen 12/31/2017 10:22 8 (specimen) AM EDT 10:43 AM EDT Resulting Agency Comment Spec In Lab Jayden Ignacio MD CHEMISTRY ORDERABLES Performing Organization Address City/State/Z[place] [address] (ABNORMAL) Comprehensive metabolic panel (non-fasting) (12/31/2017 10:22 AM EDT) athologist Signature Glucose Lvl 248 (H) 65 - 199 [facility] mg/dL [facility] Comment: Diabetes: >=200 mg/dL plus symp toms BUN 44 (H) 10 - 20 mg/dL [facility] Creatinine 1.62 (H) 0.80 - 1.50 mg/dL [facility] Sodium 140 135 - 145 mmol/L [facility] Potassium 4.5 3.5 - 5.0 mmol/L [facility] Comment: Please note: ??Patients with WBC >100,00 0 may have falsely elevated Potassium levels. ??For accurate Potassium quantif ication in these patients send serum separator tube (gold top) for subsequent determinations. ??Contact the Clinical Chemistry Laboratory if there are any qu estions. Chloride 104 98 - 107 mmol/L [facility] CO2 19 (L) 22 - 31 mmol/L [facility] Anion Gap 17 (H) 5 - 15 mmol/L [facility] Calcium 8.8 8.5 - 10.5 mg/dL [facility] Total Protein 7.3 6.1 - 8.0 gm/dL [facility] Albumin 3.7 3.2 - 5.2 gm/dL [facility] AST 21 0 - 39 unit/L [facility] ALT 19 0 - 55 unit/L [facility] Alk Phos 137 (H) 40 - 120 unit/L [facility] Total Bilirubin 0.4 0.2 - 1.3 mg/dL [facility] Estimated GFR 46 (L) >=60 mL/min/1.73 m?? [facility] Comment: The eGFR was calculated using the CKD-EP I equation. As with all creatinine based estimates of kidney function, eGFR values calculated with the CKD-EPI equation are not accurate in patients wi th acute kidney failure, extremes of body mass or the acutely ill. http://[employer]/DHnkdep http://[employer]/DHMCnkf eGFR 53 (L) >=60 mL/min/1.73 m?? [facility] Comment: The eGFR was calculated using the CKD-EP I equation. As with all creatinine based estimates of kidney function, eGFR values calculated with the CKD-EPI equation are not accurate in patients wi th acute kidney failure, extremes of body mass or the acutely ill. http://[employer]/DHnkdep http://[employer]/DHMCnkf Specimen Anatomical Collection Method Collection Time Receive d Time (Source) Location / / Volume Laterality Blood specimen 12/31/2017 10:22 8 (specimen) AM EDT 10:43 AM EDT Resulting Agency Comment Spec In Lab Jayden Ignacio MD CHEMISTRY ORDERABLES Performing Organization Address City/State/[facility] [place] [address] documented in this encounter Visit Diagnoses Diagnosis Anemia, unspecified type Acute renal failure superimposed on stag e 3 chronic kidney disease, unspecified acute renal failure type CKD (chronic kidney disease) stage 3, GF R 30-59 ml/min Chronic kidney disease, Stage III (moder ate) documented in this encounter Care Teams Alumni Coordinator Relationship Specialty Start Date End Date Jazmine Baer MD PCP - General 11/07/10 [address] [place] [address] documented as of this encounter
--- OUTSIDE RECORDS SUMMARY | 2022-04-11 10:50 | XMS_ITS | Encounter Summary ---
:1960 Author Organization [facility] [place] [address] Care Team Providers Name Role Phone Jazmine Baer MD Primary Care Provider Reason for Visit Reason Comments Injections Procrit 20,000 units Encounter Details Date Type Department Care Team Description 11/08/2017 Infusion Hematology Oncology at [facility] in chronic kidney [facility] disease, unspecified CKD [address] [place], [place] [phone] Social History Tobacco Use Types Packs/Day Years Used Date Never Smoker Smokeless Tobacco: Never Used Alcohol Use Standard Drinks/Week Comments No 0 (1 standard drink = 0.6 oz pure alcoho l) Sex Assigned at Date Recorded Not on file documented as of this encounter Progress Notes Destiny Deshpande RN - 11/08/2017 1:00 PM EDT Infusion Note Diagnosis:Anemia Treatment: Procrit Injection Labs: 11/05 -- Hgb 10.3, Hct - 32.4 Procrit 20,000 mcg injected SQ in right arm. Patient aware to call clinic with any questions or concerns. Plan: Return to clinic weekly as scheduled with every other week labs. documented in this encounter Plan of Treatment Upcoming Encounters Date Type Specialty Care Team Description 06/19/2022 Office Visit Rheumatology Richi Blackmon MD [facility] RHEUMATOLOGY [place], [place] [address] (Wo rk) Scheduled Procedures [...] Date Dose Rate Site epoetin matt Given 11/08/2017 12:29 PM 20,000 Units R ight Arm (EPOGEN;PROCRIT) EDT injection 20,000 Units 20,000 Units, Subcutaneous, ONCE, 1 dose, On Sat11/08/17 at 1300, Routine, What is the indication of use? Chronic Kidney Disease (CKD) documented in this encounter Care Teams Lap Checker Relationship Specialty Start Date End Date Jazmine Baer MD PCP - General 11/07/10 [address] [place] [address] documented as of this encounter
--- OUTSIDE RECORDS SUMMARY | 2022-04-11 10:50 | XMS_ITS | Encounter Summary ---
:1960 Author Organization [facility] [place] [address] Care Team Providers Name Role Phone Jazmine Baer MD Primary Care Provider Encounter Details Date Type Department Care Team Description 01/06/2018 External Results Nephrology Hypertension at [facility] [place] [phone] Social History Tobacco Use Types Packs/Day [...] MD [facility] DR RHEUMATOLOGY [place], [place] [address] (Wo rk) Scheduled Procedures Name Priority Associated Diagnoses Date/Time EGD, UPPER GI ENDOSCOPY Family hx of colon cance r COLONOSCOPY, DIAGNOSTIC Family hx of colon cance r documented as of this encounter Procedures Procedure Name Priority Date/Time Associated Diagnosis Comme nts CBC (WITH DIFF) Routine 01/01/2018 Results for this procedure are i n the results section . BASIC METABOLIC PANEL Routine 01/01/2018 Result s for this (NON-FASTING) procedure are in the results section . documented in this encounter Results (ABNORMAL) CBC (with Diff) (01/01/2018) Patholo gist Method Time Signature WBC 3.9 (External Lab) RBC 3.67 (External Lab) Hemoglobin 10.9 (External Lab) Hematocrit 35.0 (External Lab) MCV 95.4 (External Lab) MCH 29.7 (External Lab) MCHC 31.1 (External Lab) RDWCV 17.7 (External Lab) Platelets 104 (External Lab) MPV 11.3 (External Lab) Neutrophils % 59.8 (External Lab) Lymphocytes % 18.7 (External Lab) Monocytes % 11.5 (External Lab) Eosinophil % 8.7 (External Lab) Basophils % 8.7 (External Lab) Immature Gran % 0.3 (External Lab) Neutr Abs (ANC) 2.33 (External Lab) Lymphocyte Abs 0.73 (External Lab) Monocyte Abs 0.45 (External Lab) Eosinophil Abs 0.34 (External Lab) Basophil Abs 0.04 (External Lab) Specimen (Source) Anatomical Location Collection Method / Collectio n Time Received Time / Laterality Volume Blood specimen 01/01/2018 (specimen) Historical Provider HEMATOLOGY ORDERABLES (ABNORMAL) Basic Metabolic Panel (non-fasting) (01/01/2018) Analysis Performed At [facility] Time Signature Glucose Lvl 145 (External Lab) BUN 45 (External Lab) Creatinine 1.93 (External Lab) Estimated GFR 35.81 (External Lab) Sodium 141 (External Lab) Potassium 4.2 (External Lab) Chloride 106 (External Lab) CO2 24 (External Lab) Calcium 8.3 (External Lab) Phosphorus 3.0 (External Lab) PTH 78 (External Lab) Specimen (Source) Anatomical Location Collection Method / Collectio n Time Received Time / Laterality Volume Blood specimen 01/01/2018 (specimen) Historical Provider CHEMISTRY ORDERABLES documented in this encounter Visit Diagnoses Not on filedocumented in this encounter Care Teams Annual Campaign Manager Relationship Specialty Start Date End Date Jazmine Baer MD PCP - General 11/07/10 [address] [place] [address] documented as of this encounter
--- OUTSIDE RECORDS SUMMARY | 2022-04-11 10:50 | XMS_ITS | Encounter Summary ---
:1960 Author Organization [facility] [place] [address] Care Team Providers Name Role Phone Jazmine Baer MD Primary Care Provider Reason for Visit Reason Comments Injections Procrit Encounter Details Date Type Department Care Team Description 10/04/2017 Infusion Hematology Oncology at [facility] in chronic kidney [facility] disease, unspecified CKD [address] [place], [place] [phone] Social History Tobacco Use Types Packs/Day Years Used Date Never Smoker Smokeless Tobacco: Never Used Alcohol Use Standard Drinks/Week Comments No 0 (1 standard drink = 0.6 oz pure alcoho l) Sex Assigned at Date Recorded Not on file documented as of this encounter Last Filed Vital Signs Vital Sign Reading Time Taken Comments Blood Pressure 129/59 10/04/2017 1:28 PM EDT Pulse 72 10/04/2017 1:28 PM EDT Temperature 36.6 ??C (97.9 ??F) 10/04/2017 1:28 PM EDT Respiratory Rate 18 10/04/2017 1:28 PM EDT Oxygen Saturation 100% 10/04/2017 1:28 PM EDT Inhaled Oxygen Concentration - - Weight 120.2 kg (265 lb) 10/04/2017 1:28 PM EDT Height 175 cm (5' 8.9) 10/04/2017 1:28 PM EDT Body Mass Index 39.25 10/04/2017 1:28 PM EDT documented in this encounter Progress Notes Anjali Barriga RN - 10/04/2017 1:00 PM EDT Infusion Note Diagnosis:Anemia Treatment: Procrit Injection Labs: Hgb 11.2 Procrit 20,000 mcg injected SQ in Left arm. Patient aware to call clinic with any questions or concerns. Plan: Return to clinic weekly as scheduled with every other week labs. documented in this encounter Plan of Treatment Upcoming Encounters Date Type Specialty Care Team Description 06/19/2022 Office Visit Rheumatology Richi Blackmon MD [facility] [address] RHEUMATOLOGY [place], [place] [address] (Wo rk) Scheduled Procedures Name [...] Date Dose Rate Site epoetin matt Given 10/04/2017 1:36 PM 20,000 Units Le ft Arm (EPOGEN;PROCRIT) injection EDT 20,000 Units 20,000 Units, Intravenous, ONCE, 1 dose, On Sat10/04/17 at 1300, Routine, What is the indication of use? Chronic Kidney Disease (CKD) documented in this encounter Care Teams Plant Changer Relationship Specialty Start Date End Date Jazmine Baer MD PCP - General 11/07/10 [address] [place] [address] documented as of this encounter
--- OUTSIDE RECORDS SUMMARY | 2022-04-11 10:50 | XMS_ITS | Encounter Summary ---
:1960 Author Organization [facility] [place] [address] Care Team Providers Name Role Phone Jazmine Baer MD Primary Care Provider Encounter Details Date Type Department Care Team Description 01/29/2018 Orders Only Hematology and Noemy Grant, Anemia due to chronic Oncology at [facility] [employer]TER blood loss [facility] [place] [address] HEMATOLOGY-ONCOLOG [phone] Y DEPT. 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
--- OUTSIDE RECORDS SUMMARY | 2022-04-11 10:50 | XMS_ITS | Encounter Summary ---
:1960 Author Organization [facility] [place] [address] Care Team Providers Name Role Phone Jazmine Baer MD Primary Care Provider Reason for Visit Reason Comments Follow-up Encounter Details Date Type Department Care Team Description 03/12/2018 Office Visit Gastroenterology at [facility] Rhiannon Headley MD Liver cirrhosis [facility] D [facility]ve [facility] secondary [place] [address] [place] [address] [place] [address] Social History Tobacco Use Types Packs/Day Years Used Date Never Smoker Smokeless Tobacco: Never Used Alcohol Use Standard Drinks/Week Comments No 0 (1 standard drink = 0.6 oz pure alcoho l) Sex Assigned at Date Recorded Not on file documented as of this encounter Last Filed Vital Signs Vital Sign Reading Time Taken Comments Blood Pressure 129/58 03/12/2018 1:54 PM EDT Pulse 69 03/12/2018 1:54 PM EDT Temperature - - Respiratory Rate - - Oxygen Saturation - - Inhaled Oxygen Concentration - - Weight 121 kg (266 lb 12.8 oz) 03/12/2018 1:54 PM EDT Height 175.3 cm (5' 9) 03/12/2018 1:54 PM EDT Body Mass Index 39.4 03/12/2018 1:54 PM EDT documented in this encounter Progress Notes Rhiannon Headley MD - 03/12/2018 2:00 PM EDT Gastroenterology and Hepatology Follow Up Note Patient: Bucky Acevedo : 1960 Provider: Rhiannon Headley MD Problem List: Cirrhosis- 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 ?? Metabolic risk factors: HTN, T2DM, Obese, dyslipidemia. No liver biopsy ? 1st presentation- Elevated liver enzymes since 2009 when he was diagnosed with myositis ?? Complicated with transient HE minimal improvement with RIfaximin (01/2014) ?? No ascites or varices ?- Iron deficiency anemia 2017- EGD, colo, video capsule endoscopy negative, bone marrow biopsy X 2 negative 2. Liver Hemangioma 1.6cm ?? 3. DM2- apparently metformin didn't work, was on insulin, then glipizide and insulint 4. HTN 5. Hypertension ?? 6. Myositis- [...] splenomegaly. No ascites. Interval History: Doing ok. Working on diabetes with diabetic specialist. Getting IV iron every 4 weeks, getting erythropoetin every 2 weeks Current Outpatient Prescriptions Medication Sig Dispense Refill ??? epoetin matt (PROCRIT INJ) Inject as directed once a week. ??? omeprazole (PRILOSEC) 20 mg Capsule, Delayed [...] 40 UNITS SUBCUTANEOUSLY BEFORE MEALS 3 ??? CommScopeTOUCH ULTRA TEST Strip TEST DIRECTED THREE TIMES [...] current facility-administered medications for this visit. Vitals: 03/12/18 1354 BP: 129/58 Pulse: 69 Weight: 121 kg (266 lb 12.8 oz) Height: 175.3 cm (5' 9) Body mass index is 39.4 kg/(m^2). Lab Results Component Value Date NA 141 (External Lab) 01/01/2018 K 4.2 (External Lab) 01/01/2018 CL 106 (External Lab) 01/01/2018 CO2 24 (External Lab) 01/01/2018 BUN 45 (External Lab) 01/01/2018 CREATININE 1.93 (External Lab) 01/01/2018 GLUCOSE 145 (External Lab) 01/01/2018 GLUCFASTING 172 (H) 07/12/2014 CALCIUM 8.3 (External Lab) 01/01/2018 ESTGFR 35.81 (External Lab) 01/01/2018 Lab Results Component Value Date ALT 19 12/31/2017 AST 21 12/31/2017 GGT 124 (H) 05/14/2013 ALKPHOS 137 (H) 12/31/2017 BILITOT 0.4 12/31/2017 BILIDIR 0.2 09/19/2016 ALBUMIN 3.7 12/31/2017 ALBUMIN 3.7 12/31/2017 PROT 7.3 12/31/2017 Lab Results Component Value Date HA1C 10.1 (H) 10/30/2017 Lab Results Component Value Date WBC 3.9 (External Lab) 01/01/2018 HGB 10.9 (External Lab) 01/01/2018 HCT 35.0 (External Lab) 01/01/2018 MCV 95.4 (External Lab) 01/01/2018 PLATELET 104 (External Lab) 01/01/2018 Exam: Looks well Anicteric Abd- protuberant, non tender Ext- no edema Assessment and Plan: 57 y.o. 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 His liver disease remains reasonably well compensated in that he has no ascites, no encephalopathy, no varices, but does have a low albumin. We discussed management of metabolic risk factors to treat his chronic liver disease. He also has iron deficiency anemia that is unexplained. Bone marrow biopsy in 04/2016 showed decreased iron stores. Recommendations: Iron deficiency- -EGD/capsule were negative 07/2016 -Continue IV iron. -Repeat colonoscopy -Anemia in part is likely due to chronic disease HORTON- -Continue to treat diabetes- seeing endocrinology now, ?role of liraglutide; control of diabetes is very important in preventing progression of HORTON -Weight loss on low carb diet. -[place] 3 fatty acids for hypertriglyceridemia Cirrhosis- US in Apr for HCC surveilance EGD- 2016 no varices, no gastropathy. Repeat in 3 years. Rhiannon Headley MD Section of Gastroenterology & Hepatology [address] [place] [phone] Greater than 50% of this 30 minute visit was spent in discussion. Cc: Jazmine Baer MD documented in this encounter Plan of Treatment Upcoming Encounters Date Type Specialty Care Team Description 06/19/2022 Office Visit Rheumatology Richi Blackmon MD [facility] ER DR RHEUMATOLOGY [place], [place] [address] (Wo rk) Scheduled Procedures Name Priority Associated Diagnoses Date/Time EGD, UPPER GI ENDOSCOPY Family hx of colon cance r COLONOSCOPY, DIAGNOSTIC Family hx of colon cance r documented as of this encounter Visit Diagnoses Diagnosis 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 Other chronic nonalcoholic liver disease documented in this encounter Care Teams Domestic Helper Relationship Specialty Start Date End Date Jazmine Baer MD PCP - General 11/07/10 [address] [place] [address] documented as of this encounter
--- OUTSIDE RECORDS SUMMARY | 2022-04-11 10:50 | XMS_ITS | Encounter Summary ---
:1960 Author Organization [facility] [place] [address] Care Team Providers Name Role Phone Jazmine Baer MD Primary Care Provider Reason for Visit Reason Comments Injections Procrit Encounter Details Date Type Department Care Team Description 10/25/2017 Infusion Hematology Oncology at [facility] in chronic kidney [facility] disease, unspecified CKD [address] [place], [place] [phone] Social History Tobacco Use Types Packs/Day Years Used Date Never Smoker Smokeless Tobacco: Never Used Alcohol Use Standard Drinks/Week Comments No 0 (1 standard drink = 0.6 oz pure alcoho l) Sex Assigned at Date Recorded Not on file documented as of this encounter Last Filed Vital Signs Vital Sign Reading Time Taken Comments Blood Pressure 144/57 10/25/2017 12:18 PM EDT Pulse 72 10/25/2017 12:18 PM EDT Temperature 36.4 ??C (97.5 ??F) 10/25/2017 12:18 PM EDT Respiratory Rate 18 10/25/2017 12:18 PM EDT Oxygen Saturation 100% 10/25/2017 12:18 PM EDT Inhaled Oxygen Concentration - - Weight 120.1 kg (264 lb 12.8 oz) 10/25/2017 12:18 PM EDT Height 175 cm (5' 8.9) 10/25/2017 12:18 PM EDT Body Mass Index 39.22 10/25/2017 12:18 PM EDT documented in this encounter Progress Notes Destiny Deshpande, RN - 10/25/2017 1:00 PM EDT Infusion Note Diagnosis:Anemia Treatment: Procrit Injection Labs: 10/11/17 -- Hgb 10.8, Hct - 33.8 Procrit 20,000 mcg injected SQ in left arm. Patient aware to call clinic with any questions or concerns. Plan: Return to clinic weekly as scheduled with every other week labs. documented in this encounter Plan of Treatment Upcoming Encounters Date Type Specialty Care Team Description 06/19/2022 Office Visit Rheumatology Richi Blackmon MD [facility] DR RHEUMATOLOGY [place] [address] (Wo rk) Scheduled Procedures Name Priority Associated [...] Date Dose Rate Site epoetin matt Given 10/25/2017 12:29 PM 20,000 Units L eft Arm (EPOGEN;PROCRIT) injection EDT 20,000 Units 20,000 Units, Subcutaneous, ONCE, 1 dose, On Sat10/25/17 at 1300, Routine, What is the indication of use? Chronic Kidney Disease (CKD) documented in this encounter Care Teams Superintendent Renting Managing Relationship Specialty Start Date End Date Jazmine Baer MD PCP - General 11/07/10 [address] [place] [address] documented as of this encounter
--- OUTSIDE RECORDS SUMMARY | 2022-04-11 10:50 | XMS_ITS | Encounter Summary ---
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 (Primary Dx); [facility] LUDA Alston Acute renal failure superimposed on stag e 3 chronic kidney disease, unspecified acute renal failure type; [place] [address] [facility] Type 2 diabetes mellitus wit h stage 3 chronic kidney disease, with long-term current use of insulin; [phone] Center Class 2 obesity with serious comorbidity and body mass index (BMI) of 37.0 to 37.9 in adult, [place] [address] Social History Tobacco Use Types Packs/Day Years Used Date Never Smoker Smokeless Tobacco: Never Used Alcohol Use Standard Drinks/Week Comments No 0 (1 standard drink = 0.6 oz pure alcoho l) Sex Assigned at Date Recorded Not on file documented as of this encounter Last Filed Vital Signs Vital Sign Reading Time Taken Comments Blood Pressure 124/56 10/30/2017 1:23 PM EDT Pulse 75 10/30/2017 1:23 PM EDT Temperature - - Respiratory Rate - - Oxygen Saturation - - Inhaled Oxygen Concentration - - Weight 116.1 kg (256 lb) 10/30/2017 1:23 PM EDT Height 175 cm (5' 8.9) 10/30/2017 1:23 PM EDT Body Mass Index 37.92 10/30/2017 1:23 PM EDT documented in this encounter Progress Notes Akash Doll PA - 10/30/2017 1:30 PM EDT Gastroenterology and Hepatology Follow Up Note Patient: Bucky Acevedo : 1960 Provider: Akash Doll PA-C Problem List: Cirrhosis- 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 ?? Metabolic risk factors: HTN, T2DM, Obese, dyslipidemia. No liver biopsy ? 1st presentation- Elevated liver enzymes since 2009 when he was diagnosed with myositis ?? Complicated with transient HE minimal improvement with RIfaximin (01/2014) ?? No ascites or varices (Last EGD 08/02/16) ?? No hepatic encephalopathy ? 2. Liver Hemangioma 1.6cm ??- stable on repeated imaging tests 3. DM2 4. HTN 5. Hypertension ?? 6. Myositis- statin induced myoapthy ?-?? Jun 2014-received IVIg x 2days every month and Solumedrol - Continues IVIG 2 days monthly, solumedrol one day monthly @ [facility] - Followed by Drs. Prieto and Rosibel 7. Durand's Esophagus- last EGD 08/02/16 with irregular Z-line, repeat due in 2018 for repeat biopsies 8. 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 Gout 10. Iron deficiency anemia Negative capsule study Jul 2016 Negative repeat colo on 11/12/16 Seen by hematology 01/2017, thoughts either due to malabsorption or GI loss, monthly Venofer @ [facility] x 4 months 11. Renal insufficiency Creatinine 1.42 on 09/19/16 Creatinine 2.52 on 01/25/17 Slightly elevated EPO level 01/08/[address] Villavicencio -- progressive CKD stage IIIb A1, likely secondary to myoglobin toxicity, chronic hyperuricemia, w/wo immunoglobulin associated tubular toxicity, possible underlying atypical diabetic nephropathy (last visit 10/02/17) Preventative Health: 1. HAV/HBV: (+)/(-)- received HBV vaccine 2. Colonoscopy - 07/21/13 hyperplastic polyp. Repeat 10/2016 for LONNIE, negative, repeat due in 2026. 3. Portal HTN: EGD 08/02/16 no varices, no gastropathy, repeat due 2018 4. HCC Surveillance: MRI 10/30/17 with no lesions, stable hemangioma, stable pancreatic cyst 5. Pneumonia vaccine 6. Influenza vaccine Interval History: Mr. Acevedo returns today for follow-up of his HORTON cirrhosis. Overall, he has no complaints today questions regarding his liver disease, and is happy to hear that his liver function tests are stable and that today's MRI shows no concerning lesions other than a stable hemangioma. He admits to me that he has not been doing very well with his diabetes management, and that blood sugars have been runningin the 200s and 300s more recently. He still taking 10 mg of glipizide in addition to Lantus (10 units in p.m., 30 units in a.m.) and Humalog (14 units per meal). This is managed by Dr. Baer and he believes he is seeing her next in about 2 months. His diet is mostly processed meats such as roast beef sandwiches, tunafish, and frozen prepared meals such as hot pockets, fish sticks, and chicken fries. He is not eating any sweets or now although heis regularly drinking about two 16-ounce bottles of regular Coke a day. He does make sure to drink about 2 bottles of water every day. He tells me that he seen a diabetes counselor before but this is never worked in helping control his diet, and this is something he needs to do on his own. He eats outabout once every other week. His weight has been stable but he is not active due to his other medical conditions. Since I last saw him, he is now established with nephrology and seen Dr. Villavicencio in the CKD clinic. He tells me that his kidney disease is moderate and we are keeping an eye on it. He is unsure exactly what the cause of his kidney disease is but would not be surprised if diabetes is caused this. He is still on the same schedule with his IVIG infusions with Solu-Medrol once monthly. He has also been getting Procrit injections weekly and states that he is no longer taking any oral iron. He denies any symptoms today such as abdominal pain, jaundice, confusion/memory issues, bloating/swelling, or new rashes. Bowel movements are regular daily without any blood. He has mild swelling in his legs but this has been stable for a long time. He generally feels quite well today. MEDICATIONS Current Outpatient Prescriptions Medication Sig Dispense Refill ??? metoprolol succinate (TOPROL-XL) 50 mg Tablet [...] 40 UNITS SUBCUTANEOUSLY BEFORE MEALS 3 ??? Peer[employer] ULTRA TEST Strip TEST DIRECTED THREE TIMES A DAY DIRECTED 3 ??? IMMUNE GLOBULIN,GAMMA,IGG, (IMMUNE GLOBULIN, HUMAN,, IGG, IV) 1,200 mg intravenously twice monthly. ??? UNABLE TO FIND Solumedrol IV with IVIG infusions, once monthly (one bag, one mL). ??? terazosin (HYTRIN) 5 mg Capsule Take 1 capsule by mouth nightly. 3 ??? insulin glargine (LANTUS SOLOSTAR) Insulin Pen 30 units subcutaneously every morning, and 80 units subcutaneously nightly. ??? furosemide (LASIX) 20 mg Tablet Take 1 tablet by mouth daily. (Patient taking differently: Take 20 mg by mouth 2 times daily.) 30 tablet 12 ??? multivitamin Capsule Take 1 capsule by mouth daily. ??? omeprazole (PRILOSEC) 40 mg capsule Take 1 capsule by mouth daily. 90 capsule 3 ??? ondansetron (ZOFRAN) 4 mg tablet Take 1 tablet by mouth as needed. 20 tablet 3 ??? lisinopril-hydrochlorothiazide (PRINZIDE;ZESTORETIC) 20-12.5 mg per tablet Take 2 tablets by mouth daily. No current facility-administered medications for this visit. PHYSICAL EXAM Vitals: 05/23/18 1323 BP: 124/56 Pulse: 75 Weight: 116.1 kg (256 lb) Height: 175 cm (5' 8.9) Body mass index is 37.92 kg/(m^2). Constitutional: Well appearing, appropriate, no acute distress Skin: No cyanosis, no palmar erythema, no jaundice Head: Normocephalic, sclerae anicteric Abdomen: Obese, nondistended, nontender Neurologic: Alert and oriented x 3, no asterixis or tremor Extremities: Trace bilateral LE edema RESULTS Recent Results (from the past 24 hour(s)) Comprehensive metabolic panel (non-fasting) Result Value Ref Range Glucose Lvl 365 (H) 65 - 199 mg/dL BUN 71 (H) 10 - 20 mg/dL Creatinine 3.62 (H) 0.80 - 1.50 mg/dL Sodium 133 (L) 135 - 145 mmol/L Potassium 4.9 3.5 - 5.0 mmol/L Chloride 99 98 - 107 mmol/L CO2 17 (L) 22 - 31 mmol/L Anion Gap 17 (H) 5 - 15 mmol/L Calcium 8.5 8.5 - 10.5 mg/dL Total Protein 7.7 6.1 - 8.0 gm/dL Albumin 3.5 3.2 - 5.2 gm/dL AST 25 0 - 39 unit/L ALT 26 0 - 55 unit/L Alk Phos 141 (H) 40 - 120 unit/L Total Bilirubin 0.5 0.2 - 1.3 mg/dL Estimated GFR 17 (L) >=60 Prothrombin Time Result Value Ref Range PT 11.8 9.4 - 12.5 sec INR 1.1 Hemoglobin A1c Result Value Ref Range Hemoglobin A1C 10.1 (H) 4.3 - 5.6 % Est Avg Gluc 243 mg/dL Hemogram Result Value Ref Range WBC 3.9 (L) 4.0 - 9.5 x10(3)/mcL RBC 3.66 (L) 4.58 - 5.54 x10(6)/mcL Hemoglobin 10.5 (L) 13.7 - 16.5 gm/dL Hematocrit 33.2 (L) 40.5 - 48.5 % MCV 90.7 82.9 - 93.1 fL MCH 28.7 27.5 - 32.1 pg MCHC 31.6 (L) 32.0 - 35.7 gm/dL Platelets 76 (L) 145 - 357 x10(3)/mcL RDWSD 53.7 (H) 36.0 - 45.0 fL RDWCV 16.5 (H) 11.4 - 13.8 % MPV 12.3 7.6 - 12.9 fL nRBC % Auto 0.0 % nRBC Abs Auto 0.000 0.000 - 0.000 x10(3)/mcL Differential, Automated Result Value Ref Range Neutrophils % 65.9 % Neutr Abs (ANC) 2.60 1.70 - 6.10 x10(3)/mcL Lymphocytes % 15.7 % Lymphocytes Abs 0.6 (L) 0.9 - 3.2 x10(3)/mcL Monocytes % 5.6 % Monocyte Abs 0.2 (L) 0.3 - 0.9 x10(3)/mcL Eosinophils % 11.2 % Eosinophils Abs 0.4 0.0 - 0.4 x10(3)/mcL Basophils % 1.3 % Basophils Abs 0.0 0.0 - 0.1 x10(3)/mcL Immature Gran % 0.30 % Tamara Gran Abs 0.01 0.00 - 0.04 x10(3)/mcL MELD-Na score: 23 at 10/30/2017 1:15 PM MELD score: 20 at 10/30/2017 1:15 PM Calculated from: Serum Creatinine: 3.62 mg/dL at 10/30/2017 1:15 PM Serum Sodium: 133 mmol/L at 10/30/2017 1:15 PM Total Bilirubin: 0.5 mg/dL (Rounded to 1) at 10/30/2017 1:15 PM INR(ratio): 1.1 at 10/30/2017 1:15 PM Age: 57 years Imaging: MRI abdomen wwo contrast today: FINDINGS: ?? Prior interventions: None. Liver Morphology: Mildly nodular hepatic capsular contour. No signal dropout on out of phase sequence. ?? Focal hepatic lesions: No suspicious hepatic lesion. A 1.4 cm moderately T2 hyperintense centripetally enhancing lesion consistent with hemangioma seen in the inferior right hepatic lobe. ?? Portal Vein: Widely Patent. Varices: Recanalized umbilical vein and left abdomen varices. Ascites: None. ?? Bile ducts: Nondilated. ?? Gallbladder: No gallstones. Normal caliber wall. Spleen: Enlarged measuring 17 cm Pancreas: Stable nonenhancing unilocular 10 mm ovoid cyst in the pancreatic body without suspicious features. Homogenous enhancement of the pancreas parenchyma. Adrenals: Normal. Kidneys: Symmetric size and enhancement. Stable nonenhancing cysts in the right upper pole and left lower pole. ?? Aorta: No aneurysm. Lymph nodes: No enlarged lymph nodes. Bowel: Nondilated, no inflammatory changes. Marrow Signal: No suspicious marrow signal. ?? IMPRESSION ?? 1. Cirrhosis with evidence of portal hypertension. 2. No suspicious hepatic lesion. 3. Stable 10 mm nonenhancing pancreatic cystic lesion without suspicious features. Assessment and Plan: 57 y.o. male with cirrhosis due to HORTON with risk factors of obesity, diabetes, and dysplipidemia. Synthetic liver function appears well-preserved with normal bilirubin, albumin, and INR levels today, although thrombocytopenia that is related to splenic sequestration from portal hypertension. He has no signs or symptoms today concerning for new decompensation. MRI today is clear of any new liver lesions but does show portal hypertensive changes. His labs today are remarkable for market increase in hemoglobin A1c, 10.1% up from 7.8% about 6 months ago. Late this is directly related to his nonadherence to a diabetic diet low in carbohydrates. I discussed that controlling his diabetes is going to be the best possible thing that he can do for hisliver. I highly recommended he see a intelligence operations again to discuss his diabetes. He declined a referral for dietitian here in the GI clinic. Also notable in his labs today is anything more elevated creatinine from recent baseline of 3.62 (was 2.28 one month ago). GFR today is calculated at 17 and BUN is 71. I am wondering if this representsan acute kidney injury related to contrast from today's MRI. He is asymptomatic today in regard to any kidney injury, not retaining fluid and normotensive, and normal urine output. I paged the nephrology fellow on-call, Dr. Parr, who suggested that he have a basic metabolic panel drawn sometime next week to recheck this. He stated that he would make Dr. Villavicencio aware of this, and if renal function continues to be elevated from baseline next week, they will arrange for him to be seen in nephrology clinic. I will call the patient to ask him to have a BMP drawn next week in [place], and I will route the results to the nephrology team when I receive them. His MELD scores today have increased significantly, now at 20 and MELD-Na of 23. These are being driven by his elevated creatinine and is very likely not an accurate representation of the state of his liver function. Recommendations: 1) Acute on chronic renal injury - May be related to MRI contrast dye - Will call him tomorrow to ask that he have a BMP drawn 1-2 weeks at [facility], to coordinate with Procrit injection - May require sooner follow-up with nephrology 2) HORTON - Is the utmost importance to gain better control of his diabetes. I recommended he call his PCP with today's A1c result and strongly consider seeing a dietitian/intelligence operations. Urged that he discontinuedrinking all soda and swap processed foods for fresh produce. 3) Cirrhosis - No lesions on MRI today, will revert back to ultrasound for next HCC screening in 6 months - No ascites or encephalopathy on imaging or exam, respectively - EGD due in 2019 for repeat varices screening and follow-up of Durand's. 4) Iron deficiency anemia - Continue care with hematology & nephrology 5) Statin-induced myositis - Discuss possibility of decreasing solumedrol with rheumatology, as long-term steroids may contribute to progression of hepatic steatosis over time. Hepatology follow-up: 3-6 months, depending on stability of renal function. Ultrasound in 6 months. He may see Dr. Simeon again or myself. 35 of this 40-minute visit was in [id number] discussion regarding disease, prognosis and treatment. Akash Doll PA-C Section of Gastroenterology [place] [address] Cc: Jazmine Baer MD documented in this encounter Plan of Treatment Upcoming Encounters Date Type Specialty Care Team Description 06/19/2022 Office Visit Rheumatology Richi Blackmon MD [facility] RHEUMATOLOGY [place], [place] [address] (Wo rk) Scheduled Procedures Name Priority Associated Diagnoses Date/Time EGD, UPPER GI ENDOSCOPY Family hx of colon cance r COLONOSCOPY, DIAGNOSTIC Family hx of colon cance r documented as of this encounter Results US Abdomen Complete With [...] 12:41 pm) PATIENT INFO: ID #: ? [id number] ? : [birth year] (58 yrs) Name: ? BUCKY ACEVEDO ?Visit Date:04/17/2018 09:00 am PERFORMED BY: Performed By: ? Jazmine Ochoa RDMS Attending: ?Maulik FONSECA, There J. Referred By: ?RHIANNON SIMEON Location: ? [place] SERVICE(S) PROVIDED: ??UABDCVASC - Abdominal Complete Survey with Vascular - [id number], [id number] ??[id number] INDICATIONS: ??OHRTON cirrhosis and CKD, screen for he patoma [...] 04/17/20 12:41 pm) PATIENT INFO: ID #: [id number] : [birth year] (58 y rs) Name: BUCKY ACEVEDO Visit Date:04/17 09:00 am PERFORMED BY: Performed By: Jazmine Ochoa RDMS Attending: Kimi Willingham MD Referred By: RHIANNON SIMEON Location: [place] SERVICE(S) PROVIDED: UABDCVASC - Abdominal Complete Survey w [facility] Vascular - [id number], [id number] INDICATIONS: HORTON cirrhosis and CKD, screen for [...] 1.7 1.6 Comment: Hemangioma not visualized on cain hernandez's ultrasound due to patient body habitus. ------- [...] Electronically Signed Final Report 04/17 12:41 pm Rhiannon Simeon MD [facility] GEN ORDERABLES (ABNORMAL) Basic Metabolic Panel (non-fasting) (12/31/2017 10:22 AM EDT) P athologist Signature Glucose Lvl 248 (H) 65 - 199 [facility] mg/dL [facility] Comment: Diabetes: >=200 mg/dL plus symp toms BUN 44 (H) 10 - 20 mg/dL [facility] Creatinine 1.62 (H) 0.80 - 1.50 mg/dL [facility] Sodium 140 135 - 145 mmol/L [facility] Potassium 4.4 3.5 - 5.0 mmol/L [facility] Comment: Please note: ??Patients with WBC >100,00 0 may have falsely elevated Potassium levels. ??For accurate Potassium quantif ication in these patients send serum separator tube (gold top) for subsequent determinations. ??Contact the Clinical Chemistry Laboratory if there are any qu estions. Chloride 103 98 - 107 mmol/L [facility] CO2 20 (L) 22 - 31 mmol/L [facility] Anion Gap 17 (H) 5 - 15 mmol/L [facility] Calcium 9.1 8.5 - 10.5 mg/dL [facility] Estimated GFR 46 (L) >=60 mL/min/1.73 m?? [facility] Comment: The eGFR was calculated using the CKD-EP I equation. As with all creatinine based estimates of kidney function, eGFR values calculated with the CKD-EPI equation are not accurate in patients wi th acute kidney failure, extremes of body mass or the acutely ill. http://[employer]/Codotankdep http://[employer]/MCnkf eGFR 53 (L) >=60 mL/min/1.73 m?? [facility] Comment: The eGFR was calculated using the CKD-EP I equation. As with all creatinine based estimates of kidney function, eGFR values calculated with the CKD-EPI equation are not accurate in patients wi th acute kidney failure, extremes of body mass or the acutely ill. 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 - Prim mamadou Other chronic nonalcoholic liver disease Acute renal failure superimposed on stag e 3 chronic kidney disease, unspecified acute renal failure type Type 2 diabetes mellitus with stage 3 ch ronic kidney disease, with long-term current use of insulin Class 2 obesity with serious comorbidity and body mass index (BMI) of 37.0 to 37.9 in adult, unspecified obesity type 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
--- OUTSIDE RECORDS SUMMARY | 2022-04-11 10:50 | XMS_ITS | Encounter Summary ---
:1960 Author Organization [facility] [place] [address] Care Team Providers Name Role Phone Jazmine Baer MD Primary Care Provider Encounter Details Date Type Department Care Team Description 12/31/2017 Office Visit Hematology and Jayden Nance Anemia in chronic kidney disease, unspecified CKD stage; Oncology at [facility] [place] MD [facility] [address] [place], [place] HEMATOLOGY/ONCOLOGY [address] DEPT. [phone] [place], [place] [address] (Wo rk) Social History Tobacco Use Types Packs/Day Years Used Date Never Smoker Smokeless Tobacco: Never Used Alcohol Use Standard Drinks/Week Comments No 0 (1 standard drink = 0.6 oz pure alcoho l) Sex Assigned at Date Recorded Not on file documented as of this encounter Last Filed Vital Signs Vital Sign Reading Time Taken Comments Blood Pressure - - Pulse - - Temperature - - Respiratory Rate 18 12/31/2017 11:48 AM EDT Oxygen Saturation - - Inhaled Oxygen Concentration - - Weight - - Height - - Body Mass Index - - documented in this encounter Progress Notes Jayden Nance MD - 12/31/2017 12:00 PM [place] [address] HEMATOLOGY/BMT CONSULTATION VISIT NOTE Chief Complaint: Bucky Acevedo is a 57 y.o. male referred by Dr. Baer for evaluation of bicytopenia (anemia and thrombocytopenia) . Data Review (From Jazmine Baer MD and [facility]) Oringinal History of Present Illness (03/16/16) [...] for his anemia of chronic kidney disease. This has been going well. Has felt more tired lately - feels iron might be low. 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 Has 11 grandchildren. States that energy level up and down. No infections. Nobleeding or bruisng other than an occasional nose bleed. No new complaints or medical issues. Review of Systems: Constitutional --Energy level: chronic fatigue - waxes and wanes. --Pain: none --Fevers/chills/sweats: No --Unexpected weight loss [...] weakness: no focal pain though continues to have muscle weakness --Joint pain or swelling: No Immune System --Recent infections: No Hematology/Lymph --Bruising/bleeding/melena: No --Enlarged nodes or other masses: No Skin --Rashes or petechiae: No Neuro --Numbness/tingling: Chronic paresthesias in the bilateral LEs. --Headache/dizziness: No Other [...] Itching and Rash ??? Morphine Itching ??? Vwtjrob-Gbf-Ygj Reductase Inhibitors Myopathy INTERIM SOCIAL HISTORY: Changes in job, home situation, tobacco or alcohol use since last visit: None CHANGES IN RELEVANT FAMILY HISTORY: None Physical Exam VITAL SIGNS: Resp. rate 18. Most Recent Value 12/31/2016 - Today Height 175.2 cm (5' 8.98) 12/31/2017 Weight 120.7 kg (266 lb) 12/31/2017 BSA (Calculated - sq m) 2.42 sq meters 12/31/2017 Temp 36.9 ??C (98.4 ??F) 12/31/2017 Pulse 70 12/31/2017 Resp 18 12/31/2017 BP 133/50 12/31/2017 SpO2 100 % 12/31/2017 GENERAL: Bucky Acevedo is a mildly chronically ill-appearing 57 y.o. male in no acute distress. He is accompanied by his today. Full exam not performed today Laboratory: Recent Results (from the past 72 hour(s)) Comprehensive metabolic panel (non-fasting) Result Value Ref Range Glucose Lvl 248 (H) 65 - 199 mg/dL BUN 44 (H) 10 - 20 mg/dL Creatinine 1.62 (H) 0.80 - 1.50 mg/dL Sodium 140 135 - 145 mmol/L Potassium 4.5 3.5 - 5.0 mmol/L Chloride 104 98 - 107 mmol/L CO2 19 (L) 22 - 31 mmol/L Anion Gap 17 (H) 5 - 15 mmol/L Calcium 8.8 8.5 - 10.5 mg/dL Total Protein 7.3 6.1 - 8.0 gm/dL Albumin 3.7 3.2 - 5.2 gm/dL AST 21 0 - 39 unit/L ALT 19 0 - 55 unit/L Alk Phos 137 (H) 40 - 120 unit/L Total Bilirubin 0.4 0.2 - 1.3 mg/dL eGFR 46 (L) >=60 mL/min/1.73 m?? eGFR 53 (L) >=60 mL/min/1.73 m?? Iron and TIBC Result Value Ref Range Iron 28 (L) 45 - 160 mcg/dL TIBC 419 250 - 450 mcg/dL Iron Saturation 7 (L) 20 - 50 % Ferritin Result Value Ref Range Ferritin 28 (L) 30 - 400 ng/mL Hemogram Result Value Ref Range WBC 3.8 (L) 4.0 - 9.5 x10(3)/mcL RBC 3.61 (L) 4.58 - 5.54 x10(6)/mcL Hemoglobin 10.7 (L) 13.7 - 16.5 gm/dL Hematocrit 33.7 (L) 40.5 - 48.5 % MCV 93.4 (H) 82.9 - 93.1 fL MCH 29.6 27.5 - 32.1 pg MCHC 31.8 (L) 32.0 - 35.7 gm/dL Platelets 99 (L) 145 - 357 x10(3)/mcL RDWSD 62.0 (H) 36.0 - 45.0 fL RDWCV 18.0 (H) 11.4 - 13.8 % MPV 12.0 7.6 - 12.9 fL nRBC % Auto 0.0 % nRBC Abs Auto 0.000 0.000 - 0.000 x10(3)/mcL Differential, Automated Result Value Ref Range Neutrophils % 61.0 % Neutr Abs (ANC) 2.32 1.70 - 6.10 x10(3)/mcL Lymphocytes % 17.4 % Lymphocytes Abs 0.7 (L) 0.9 - 3.2 x10(3)/mcL Monocytes % 11.3 % Monocyte Abs 0.4 0.3 - 0.9 x10(3)/mcL Eosinophils % 8.9 % Eosinophils Abs 0.3 0.0 - 0.4 x10(3)/mcL Basophils % 1.1 % Basophils Abs 0.0 0.0 - 0.1 x10(3)/mcL Immature Gran % 0.30 % Tamara Gran Abs 0.01 0.00 - 0.04 x10(3)/mcL Basic Metabolic Panel (non-fasting) Result Value Ref Range Glucose Lvl 248 (H) 65 - 199 mg/dL BUN 44 (H) 10 - 20 mg/dL Creatinine 1.62 (H) 0.80 - 1.50 mg/dL Sodium 140 135 - 145 mmol/L Potassium 4.4 3.5 - 5.0 mmol/L Chloride 103 98 - 107 mmol/L CO2 20 (L) 22 - 31 mmol/L Anion Gap 17 (H) 5 - 15 mmol/L Calcium 9.1 8.5 - 10.5 mg/dL eGFR 46 (L) >=60 mL/min/1.73 m?? eGFR 53 (L) >=60 mL/min/1.73 m?? Albumin Level Result Value Ref Range Albumin 3.7 3.2 - 5.2 gm/dL Phosphorus Result Value Ref Range Phosphorus 3.0 2.5 - 4.5 mg/dL PTH Result Value Ref Range PTH 50 15 - 65 pg/mL CK Result Value Ref Range CK, Total 82 0 - 200 unit/L Radiology: No new images reviewed today Assessment & Plan: Bucky Acevedo is a 57 y.o. male who presents for return for thrombocytopenia and anemia. 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 He had been evaluated in the past for thrombocytopenia and anemia with BMbx in 2012 with no evidence of MDS or hematologic malignancy. This was repeated by us inJanuary of 2015 and again showed no evidence of an underlying primary hematologic problem and included normal cytogenetics and normal 54 gene myeloid mutation panel. As below, anemia likely multifactorial due to low Epo and low iron. 1. Anemia (iron deficiency and low Epo) --full anemia w/u in January 2017 found only to be iron deficiency - this despite him being on oral iron. --Epo level inappropriately low for Hgb in the setting of CKD, Procrit 20,000Units SQ injection weekly for Hgb < 12gm/dL arranged at [facility] for patient's convenience --Ferritin and transferrin sat have both fallen off again - will need repletion of iron stores soon. 2. 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 No clinically significant bleeding 3. Fatigue - multifactorial, repletion of iron stores did not seem to improve fatigue much. 4. Counseling - Bucky, berhanew and I revewed his labs over time showing that his Hgb has stabilized in the 10-11 range and that he is now iron deficient again. We discussed options for venofer and decided to try month infusions at [facility] in association with his Procrit injections which he receives every Saturday. 4. Follow-up - Continue Procrit locally at [facility]. - Will add monthly venofer 100 mg as maintenance/ repletion - start this Saturday. - We will arrange for Bucky to RTC in approximately ~4 months. Jayden Nance MD Section of Hematology/Oncology Page: #[phone] Office Phone: [phone] Copies MD Donato Martinez MD documented in this encounter Miscellaneous Notes Addendum Note - Jayden Nance MD - 01/21/2018 11:56 AM EDT Addended by: JAYDEN NANCE on: 01/21/2018 11:56 AM Modules accepted: Orders documented in this encounter Plan of Treatment Upcoming Encounters Date Type Specialty Care Team Description 06/19/2022 Office Visit Rheumatology Richi Blackmon MD [facility] [address] RHEUMATOLOGY [place], [place] [address] (Wo rk) Scheduled Procedures Name Priority Associated Diagnoses Date/Time EGD, UPPER GI ENDOSCOPY Family hx of colon cance r COLONOSCOPY, DIAGNOSTIC Family hx of colon cance r documented as of this encounter Visit Diagnoses Diagnosis Anemia in chronic kidney disease, unspec ified CKD stage Thrombocytopenia Thrombocytopenia, unspecified documented in this encounter Care Teams Combatant Diver Officer Relationship Specialty Start Date End Date Jazmine Baer MD PCP - General 11/07/10 [address] [place] [address] documented as of this encounter
--- OUTSIDE RECORDS SUMMARY | 2022-04-11 10:51 | XMS_ITS | Encounter Summary ---
:1960 [place] [address] Care Team Providers Name Role Phone Jazmine Baer MD Primary Care Provider Encounter Details Date Type Department Care Team Description 07/02/2017 Laboratory Appointment Lab [facility] Anemia of chronic [facility] renal failure, stage [facility] [address] ([address] te) [place] [id number] Social History Tobacco Use Types Packs/Day Years Used Date Never Smoker Smokeless Tobacco: Never Used Alcohol Use Standard Drinks/Week Comments No 0 (1 standard drink = 0.6 oz pure alcoho l) Sex Assigned at Date Recorded Not on file documented as of this encounter Plan of Treatment Upcoming Encounters Date Type Specialty Care Team Description 06/19/2022 Office Visit Rheumatology Richi Blackmon MD [facility] RHEUMATOLOGY [place], [place] [address] (Wo rk) Scheduled Procedures Name Priority Associated Diagnoses Date/Time EGD, UPPER GI ENDOSCOPY Family hx of colon cance r COLONOSCOPY, DIAGNOSTIC Family hx of colon cance r documented as of this encounter Procedures Procedure Name Priority Date/Time Associated Comments Diagnosis HEMOGRAM STAT 07/02/2017 1:24 PM Anemia of chronic Resu lts for this EST renal failure, procedure are in stage 3 (moderate) the resul ts section. DIFFERENTIAL, STAT 07/02/2017 1:24 PM Anemia of chronic Res ults for this AUTOMATED EST renal failure, procedure are in stage 3 (moderate) the resul ts section. CREATININE STAT 07/02/2017 1:24 PM Anemia of chronic Resu lts for this EST renal failure, procedure are in stage 3 (moderate) the resul ts section. CBC (WITH DIFF) STAT 07/02/2017 1:24 PM Anemia of chronic EST renal failure, stage 3 (moderate) documented in this encounter Results (ABNORMAL) Differential, Automated (07/02/2017 1:24 PM EST) [facility] Method Time Signature Neutrophils % 71.7 % [facility] Neutr Abs (ANC) 3.89 1.70 - [facility] 6.10 [facility] x10(3)/[facility] LABORATORY Lymphocytes % 13.7 % [facility] Lymphocytes Abs 0.7 (L) 0.9 - 3.2 [facility] x10(3)/[facility] LABORATORY Monocytes % 7.0 % [facility] Monocyte Abs 0.4 0.3 - 0.9 [facility] x10(3)/[facility] LABORATORY Eosinophils % 6.3 % [facility] Eosinophils Abs 0.3 0.0 - 0.4 [facility] x10(3)/[facility] LABORATORY Basophils % 0.9 % [facility] Basophils Abs 0.0 0.0 - 0.1 [facility] x10(3)/[facility] LABORATORY Immature Gran % 0.40 % [facility] Comment: Immature granulocytes(IG's)percentage an d absolute count will include metamyelocytes, myelocytes, and promyelo cytes. Blood smears from CBCs yielding IG's will be scanned manually for concor dance. If this scan disagrees with the automated IG or if promyelocytes are not ed, a manual differential will be performed. Tamara Gran Abs 0.02 0.00 - 0.04 x10(3)/[facility] Specimen Anatomical Collection Method Collection Time Receive d Time (Source) Location / / Volume Laterality Blood specimen 07/02/2017 1:24 PM 018 1:28 (specimen) EST PM EST Resulting Agency Comment Spec In Lab Karen Lugo [employer] HEMATOLOGY ORDERABLES Performing Organization Address City/State/ZIP [place] [address] (ABNORMAL) Hemogram (07/02/2017 1:24 PM EST) Patholo gist Method Time Signature WBC 5.4 4.0 - 9.5 [facility] LABORATORY RBC 3.24 (L) 4.58 - [place] 5.54 [facility] x10(6)/[facility] LABORATORY Hemoglobin 10.4 (L) 13.7 - [facility] 16.5 gm/dL [facility] Hematocrit 32.4 (L) 40.5 - [place] 48.5 % [facility] MCV 100.0 (H) 82.9 - [place] 93.1 [facility] LABORATORY MCH 32.1 27.5 - [place] 32.[address] [facility] MCHC 32.1 32.0 - [place] 35.7 gm/dL [facility] Platelets 73 (L) 145 - 357 [facility] x10(3)/[facility] LABORATORY RDWSD 56.1 (H) 36.0 - [place] 45.0 [facility] LABORATORY RDWCV 15.2 (H) 11.4 - [place] 13.8 % [facility] LABORAT[facility] MPV 11.8 7.6 - 12.9 [place] [facility] LABORATORY nRBC % Auto 0.0 % [facility] nRBC Abs Auto 0.000 0.000 - [place] 0.000 [facility] x10(3)/[facility] LABORATORY Specimen Anatomical Collection Method Collection Time Receive d Time (Source) Location / / Volume Laterality Blood specimen 07/02/2017 1:24 PM 018 1:28 (specimen) EST PM EST Resulting Agency Comment Spec In Lab Karen Lugo [employer] HEMATOLOGY ORDERABLES Performing Organization Address City/State/ZIP Code Phon e Number [place] [phone]OS[address] LAB[address]ORY [address] (ABNORMAL) Creatinine (07/02/2017 1:24 PM EST) Analysis Performed At Patho logist Time Signature Creatinine 1.82 (H) 0.80 - [place] 1.50 mg/dL [facility] Estimated GFR 38 (L) >=60 [facility] Comment: The reported eGFR should be multiplied b y 1.2 for patients. The MDRD is not an appropriate measure o f renal function for patients with body mass extremes or in patients with acute kidney failure. http://Flashpoint/DHnkdep http://Flashpoint/DHMCnkf Specimen Anatomical Collection Method Collection Time Receive d Time (Source) Location / / Volume Laterality Blood specimen 07/02/2017 1:24 PM 018 1:28 (specimen) EST PM EST Resulting Agency Comment Spec In Lab Karen Lugo [employer] CHEMISTRY ORDERABLES Performing Organization Address City/State/ZIP Code Phon e Number [place] [phone] documented in this encounter Visit Diagnoses Diagnosis Anemia of chronic renal failure, stage 3 (moderate) documented in this encounter Care Teams Gender Studies Professor Relationship Specialty Start Date End Date Jazmine Baer MD PCP - General 11/07/10 [address] [place] [address] documented as of this encounter
--- OUTSIDE RECORDS SUMMARY | 2022-04-11 10:51 | XMS_ITS | Encounter Summary ---
:1960 Author Organization [facility] [place] [address] Care Team Providers Name Role Phone Jazmine Baer MD Primary Care Provider Encounter Details Date Type Department Care Team Description 04/11/2017 Hospital Encounter Ultrasound [place] [facility] Jeremy Simeon MD Liver cirrhosis [facility] secondary to [facility] [address] [place], [place] GASTROENTEROLOGY [address] [place], [place] [phone] [facility] Social History Tobacco Use Types Packs/Day Years [...] Take 1 capsule by mouth 0 daily. glipiZIDE (GLUCOTROL 0 03/15/2017/08/2017 XL) 10 mg Tablet Extended Rel 24 hr allopurinol Take 300 mg by mouth 0 03/14/2017 (ZYLOPRIM) 100 mg daily. Tablet UNABLE TO FIND Solumedrol IV with IVIG 0 04/20/2020 infusions, once monthly (one bag, one mL). terazosin (HYTRIN) 5 Take 1 capsule by mouth 3 05/02/2021 mg Capsule nightly. glipiZIDE (GLUCOTROL Take 10 mg by mouth 3 201608/29/2017 XL) 5 mg Tablet daily. Extended Rel 24 hr insulin lispro Subcutaneous injection 0 10/02/2017 (HUMALOG) Solution three times daily before meals, sliding scale. ferrous sulfate 324 Take 324 mg by mouth 0 07/02/2017 mg (65 mg iron) every other day. Tablet, Delayed Release (E.C.) indomethacin Take 50 mg by mouth as [...] Richi Blackmon MD [facility] RHEUMATOLOGY [place], [place] [address] (Wo rk) Scheduled Procedures Name Priority Associated Diagnoses Date/Time EGD, UPPER GI ENDOSCOPY Family hx of colon cance r COLONOSCOPY, DIAGNOSTIC Family hx of colon cance r documented as of this encounter Procedures Procedure Name Priority Date/Time Associated Diagnosis Comme nts US ABDOMEN LIMITED Routine 04/11/2017 9:11 AM Liver cirrhosis Results for this EDT secondary to HORTON procedure are in the results section. documented in this encounter Results US Abdomen Limited (04/11/2017 9:11 AM EDT) Anatomical Region Laterality Modality Abdomen Ultrasound Specimen (Source) Anatomical Collection Method Collection Time Re ceived Time Location / / Volume Laterality 04/11/2017 9:07 AM EDT Impressions 04/11/2017 9:24 AM EDT ??Comparison 03/06/2016. This study is l imited due to patientbody habitus.1. ??There is stabl e to slightly smaller echogenic lesion hemangioma rig ht lobeof the liver. No new liver masses are identifi ed.2. ??Liver remains enlarged, mildly echogenic, and mildly coarsened inechotexture.3. ??Known panc reatic cyst is not identified on today's study.4. ??Kn own right renal cysts are not identified on today's erika dy. ? Evelin Howard-Aydee phillips MD Electronically Signed Final Report ?? 09:23 am Narrative 04/11/2017 9:24 AM EDT Abdominal ? (Signed Final 04/11/2017 09:23 am) PATIENT INFO: ID #: ? [id number] ?: ??[birth year] (57 yrs) Name: ? BUCKY ACEVEDO ? Visit Date: 04/11/2017 09:07 am PERFORMED BY: Performed By: ? Romina GAN, ??Rolando gtz Attending: ?Charito FONSECA, Ezequiel Stout Referred By: ?JEREMY JEFFRIESR Location: ? [facility] SERVICE(S) PROVIDED: ??UABDLIM - Abdominal Limited Survey Si ngle ? [id number] ??Organ or Quadrant - [id number] INDICATIONS: ??Compensated cirrhosis, assess for HCC TECHNIQUE/SCAN QUALITY: Technique: ?Limited by bowel gas Limited due to patient ? body habitus Scan Quality: ?? Limited by bowel gas L imited due to body ? habitus ------ LIVER: ------ Right Lobe Length: ?? 21.1 ?? cm Echogenicity/Echotexture: ?? Normal -------- Lesions: -------- ??# ?Date ?Location ? Description ? L ? AP ? TV (cm) ??1 ?04/11/17 ?Right Lobe- ??He mangioma ? 1.4 ?1.4 ?1.2 ? Anterior- ?(MRI ? Subcapsula ? ? Characterized ? r ?09/19/16) ??1 ?12/18/13 ?Subcapsula ?? Sl ightly ? 1.7 ?1.6 ?1.4 ? r, anterior ??hyperechoic, ? at level of ??no internal ? gallbladder ??vascularity GALLBLADDER: Cholelithiasis: ?No stones visua lized Wall Thickness: ?2. mm Focal Tenderness: ?Negative sonogra phic Morgan's sign BILIARY TRACT: Intrahepatic Ducts: ?? Normal Extrahepatic Ducts: ?? Normal Common Duct Size: ? 6.0 ? mm --------- PANCREAS: --------- Head: ? Poorly visua lized due to overlying bowel Tail: ? Poorly visua lized due to overlying bowel Body: ? Poorly visua lized due to overlying bowel RIGHT KIDNEY: Size (cm) ?L: ??12.0 Cortical Thickness: ?Normal Cortical Echogenicity: ?? Normal Hydronephrosis: ?No sonogr aphic evidence Comment: ?Limited Visualization due to patient body habitus ? and bowel gas. ------ AORTA: ------ Measurements (cm): Proximal ? AP: ?? 2.5 Comment: ?Normal in caliber where v isualized. ---- IVC: ---- Normal in caliber where visualized. Procedure Note Evelin Little MD - 07/2016 Abdominal (Signed Final 04/11/2017 09:2 3 am) PATIENT INFO: ID #: [id number] : [birth year] (57 y rs) Name: BUCKY ACEVEDO Visit Date: 07/2016 09:07 am PERFORMED BY: Performed By: Karina Vanegas RDMS Attending: Evelin Howard MD Referred By: JEREMY SIMEON Location: [facility] SERVICE(S) PROVIDED: UABDLIM - Abdominal Limited Survey [place] [id number] Organ or Quadrant - [id number] INDICATIONS: Compensated cirrhosis, assess for HCC TECHNIQUE/SCAN QUALITY: Technique: Limited by bowel gas Limited due to patient body habitus Scan Quality: Limited by bowel gas Limi manuel due to body habitus ------ LIVER: ------ Right Lobe Length: 21.1 cm Echogenicity/Echotexture: Normal -------- Lesions: -------- # Date Location Description L AP TV (cm ) 1 04/11/17 Right Lobe- Hemangioma 1.4 1 .4 1.2 Anterior- (MRI Subcapsula Characterized r 09/19/16) 1 05/27/13 Subcapsula Slightly 1.7 1.6 1.4 r, anterior hyperechoic, at level of no internal gallbladder vascularity GALLBLADDER: Cholelithiasis: No stones visualized Wall Thickness: 2. mm Focal Tenderness: Negative sonographic Morgan's sign BILIARY TRACT: Intrahepatic Ducts: Normal Extrahepatic Ducts: Normal Common Duct Size: 6.0 mm --------- PANCREAS: --------- Head: Poorly visualized due to overlyin g bowel Tail: Poorly visualized due to overlyin g bowel Body: Poorly visualized due to overlyin g bowel RIGHT KIDNEY: Size (cm) L: 12.0 Cortical Thickness: Normal Cortical Echogenicity: Normal Hydronephrosis: No sonographic evidence Comment: Limited Visualization due to p atient body habitus and bowel gas. ------ AORTA: ------ Measurements (cm): Proximal AP: 2.5 Comment: Normal in caliber where visual ized. ---- IVC: ---- Normal in caliber where visualized. IMPRESSION Comparison 03/06/2016. This study is mayes ited due to patientbody habitus.1. There is stable to slightly smaller echogenic lesion hemangioma rig ht lobeof the liver. No new liver masses are identifi ed.2. Liver remains enlarged, mildly echogenic, and mildly coarsened inechotexture.3. Known pancre atic cyst is not identified on today's study.4. Know n right renal cysts are not identified on today's erika dy. Evelin Odom MD Electronically Signed Final Report 04/11 09:23 am Jeremy Simeon MD IMG US GEN ORDERABLES documented in this encounter Visit Diagnoses Diagnosis 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 Other chronic nonalcoholic liver disease documented in this encounter Care Teams Marketing Automation Specialist Relationship Specialty Start Date End Date Jazmine Baer MD PCP - General 11/07/10 [address] [place] [address] documented as of this encounter
--- OUTSIDE RECORDS SUMMARY | 2022-04-11 10:51 | XMS_ITS | Encounter Summary ---
:1960 Author Organization [facility] [place] [address] Care Team Providers Name Role Phone Jazmine Baer MD Primary Care Provider Encounter Details Date Type Department Care Team Description 01/25/2017 Notes Only Hematology and Oncology Jayden Ignacio MD at [facility] Hilda shafer HEMATOLOGY/[place] [address] [place] [id number] [phone] (Wo rk) Social History Tobacco Use Types Packs/Day Years Used Date Never Smoker Smokeless Tobacco: Never Used Alcohol Use Standard Drinks/Week Comments No 0 (1 standard drink = 0.6 oz pure alcoho l) Sex Assigned at Date Recorded Not on file documented as of this encounter Progress Notes Jessica Santos RN - 01/25/2017 4:03 PM EDT Images from the original note were not included. [facility] HEM ONC [facility] [id number] Date: 01/25/17 Patient Name: Bucky Acevedo : 1960 Diagnosis: Anemia Referral to [site]: [facility] Infusion Floor Orders ? Other Orders: o Venofer 300mg IV monthly x 4 months Signature: beeper # Co-signature [if needed]: documented in this encounter Plan of Treatment Upcoming Encounters Date Type Specialty Care Team Description 06/19/2022 Office Visit Rheumatology Richi Blackmon MD [facility] MEDICAL [facility] ER DR RHEUMATOLOGY [place], [place] [address] (Wo rk) Scheduled Procedures Name Priority Associated Diagnoses Date/Time EGD, UPPER GI ENDOSCOPY Family hx of colon cance r COLONOSCOPY, DIAGNOSTIC Family hx of colon cance r documented as of this encounter Visit Diagnoses Not on filedocumented in this encounter Care Teams Practice Clinician Relationship Specialty Start Date End Date Jazmine Baer MD PCP - General 11/07/10 [address] [place] [address] documented as of this encounter
--- OUTSIDE RECORDS SUMMARY | 2022-04-11 10:51 | XMS_ITS | Encounter Summary ---
:1960 Author Organization [facility] [place] [address] Care Team Providers Name Role Phone Jazmine Baer MD Primary Care Provider Reason for Visit Reason Comments Injections procrit injection Encounter Details Date Type Department Care Team Description 08/02/2017 Infusion Hematology Oncology at [facility], unspecified type [address] [phone] Social History Tobacco Use Types Packs/Day Years Used Date Never Smoker Smokeless Tobacco: Never Used Alcohol Use Standard Drinks/Week Comments No 0 (1 standard drink = 0.6 oz pure alcoho l) Sex Assigned at Date Recorded Not on file documented as of this encounter Last Filed Vital Signs Vital Sign Reading Time Taken Comments Blood Pressure 140/56 08/02/2017 12:47 PM EST Pulse 71 08/02/2017 12:47 PM EST Temperature 36.6 ??C (97.9 ??F) 08/02/2017 12:47 PM EST Respiratory Rate 18 08/02/2017 12:47 PM EST Oxygen Saturation 100% 08/02/2017 12:47 PM EST Inhaled Oxygen Concentration - - Weight 121.2 kg (267 lb 3.2 oz) 08/02/2017 12:47 PM EST Height 175.3 cm (5' 9.02) 08/02/2017 12:47 PM EST Body Mass Index 39.44 08/02/2017 12:47 PM EST documented in this encounter Progress Notes Anjali Barriga RN - 08/02/2017 1:00 PM EST Infusion Note Diagnosis:Anemia Treatment: Procrit Injection Labs: H/H 11.7/36.5 Procrit 20,000 mcg injected in right arm. Patient aware to call clinic with any questions or concerns. Plan: Return to clinic weekly as scheduled with every other week labs. documented in this encounter Plan of Treatment Upcoming Encounters Date Type Specialty Care Team Description 06/19/2022 Office Visit Rheumatology Richi Blackmon MD [facility] MEDICAL [facility] DR RHEUMATOLOGY [place], [place] [address] (Wo rk) Scheduled Procedures Name Priority Associated Diagnoses Date/Time EGD, UPPER GI ENDOSCOPY Family hx of colon cance r COLONOSCOPY, DIAGNOSTIC Family hx of colon cance r documented as of this encounter Visit Diagnoses Diagnosis Anemia, unspecified type documented in this encounter Administered Medications Inactive Administered Medications - up to 3 most recent administrations Medication Order MAR Action Action Date Dose Rate Site epoetin matt Given 08/02/2017 1:00 PM 20,000 Units Le ft Arm (EPOGEN;PROCRIT) injection EST 20,000 Units 20,000 Units, Intravenous, ONCE, 1 dose, On Sat08/02/17 at 1300, Repeat CBC every other week., Routine, What is the indication of use? 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
--- OUTSIDE RECORDS SUMMARY | 2022-04-11 10:51 | XMS_ITS | Encounter Summary ---
:1960 Author Organization [facility] [place] [address] Care Team Providers Name Role Phone Jazmine Baer MD Primary Care Provider Reason for Visit Reason Comments Follow-up Encounter Details Date Type Department Care Team Description 05/24/2017 Office Visit Hematology and Anastasia Ignacio MD [facility] DR HEMATOLOGY/[place] [address] Anemia, unspecified Oncology at [facility] Karen Lugo APRN [facility] DR HEMATOLOGY/[place] [address] [place] [address] Social History Tobacco Use Types Packs/Day Years Used Date Never Smoker Smokeless Tobacco: Never Used Alcohol Use Standard Drinks/Week Comments No 0 (1 standard drink = 0.6 oz pure alcoho l) Sex Assigned at Date Recorded Not on file documented as of this encounter Last Filed Vital Signs Vital Sign Reading Time Taken Comments Blood Pressure 157/57 05/24/2017 1:23 PM EST Pulse 61 05/24/2017 1:23 PM EST Temperature 37 ??C (98.6 ??F) 05/24/2017 1:23 PM EST Respiratory Rate 16 05/24/2017 1:23 PM EST Oxygen Saturation 98% 05/24/2017 1:23 PM EST Inhaled Oxygen Concentration - - Weight 122 kg (269 lb) 05/24/2017 1:22 PM EST Height 175.3 cm (5' 9.02) 05/24/2017 1:22 PM EST Body Mass Index 39.71 05/24/2017 1:22 PM EST documented in this encounter Progress Notes Brittney Karen Nikia, SUPERVISOR IN CHARGE - 05/24/2017 1:30 PM [place] [address] HEMATOLOGY/BMT CONSULTATION VISIT NOTE Chief Complaint: Bucky Beth is a 57 y.o. male referred by Dr. Baer for evaluation of bicytopenia (anemia and thrombocytopenia) . Data Review (From Jazmine Baer MD and [facility]) Oringinal History of Present Illness (03/16/16) Bucky Beth is a 57 y.o. 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 He was referred for evaluation ofiron deficiency anemia and thrombocytopenia.He had been evaluated by Dr Evangelista at [facility] [id number] for anemia and thrombocytopenia.At that time a bone marrow biopsy was done which was normal.He states that he was started on iron supplementation pills at that time however, he used them briefly before stopping.He is currently on oral ferrous sulfate alternating with ferrous gluconate daily. He states that Ferrous gluconate was started by [facility] because of constipation with ferrous sulfate. He endorses tiredness/ fatigue with exertion.He denies chest pain, shortness of breath, dizziness orheadaches. Endorses pica (eats/chews ice). Denies blood in stool,melana,hematuria or hemoptysis. Hislast upper endoscopy was done on 08/30/15 and showed no obvious cause cause of anemia. Last colonoscopy was in 07/24 and also showed no cause of anemia. He is scheduled for EGD,capsule endoscopy and possible colonoscopy in 04/25. 04/10/16 BM Bx - hypercellular marrow (60-70%) with NTLM. No evidence of MDS, malignancy or other disorder. CG - normal male karyotype in all cells 54 Gene Myeloid Panel - no gene varients detected Interim HPI: Bucky returns to clinic today in routine follow-up for his bicytopenia. It has been ~ 4 month sincehis last visit. Since that time, Bucky reports no significant changes to his baseline health. He denies fevers, chills,recurrent infections or intercurrent illnesses. No drenching sweats, unintentional weight loss or palpable adenopathy. No abnormal bleeding or excessive bruising. He has had upper and lower endoscopies as well as video capsule endoscopy within the past 6-9 months which did not show and bleeding source. Energy level not great but stable. He tolerated Venofer infusions without difficulty though did notice a significant change in energy level. Review of Systems: Constitutional --Energy level: chronic fatigue [unchanged] --Pain: none --Fevers/chills/sweats: No --Unexpected weight loss or gain: No Eyes, ears, nose, throat --No change in vision --No change hearing, no oral or throat pain or thrush Cardiovascular --Chest pain: No --Palpitations: No Respiratory --Cough: No --SOB, CALDERON: No Gastrointestinal --Appetite: good --Early satiety: No --Nausea/vomiting/diarrhea/constipation: occasional nausea and constipation [unchanged] --Melena/Hematochezia: No Genitourinary --Dysuria or hematuria: No Musculoskeletal --Muscle pain or weakness: no focal pain though continues to describe generalized muscle weakness --Joint pain or swelling: No Immune System --Recent infections: No Hematology/Lymph --Bruising/bleeding/melena: No --Enlarged nodes or other masses: No Skin --Rashes or petechiae: No Neuro --Numbness/tingling: No --Headache/dizziness: No Other ROS: All negative Past Medical History Past Medical History: Diagnosis Date ??? Cirrhosis ??? Diabetes ??? DM II (diabetes mellitus, type II), controlled ??? Gout ??? Hyperlipidemia ??? Hypertension ??? Kidney stone ??? 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 Obesity ??? Shingles 2010 Medications: Prior to Admission medications Medication Sig Start Date End Date Taking? Authorizing Provider glipiZIDE (GLUCOTROL XL) 10 mg Tablet Extended Rel 24 hr 03/15/17 Yes PROVIDER, HISTORICAL allopurinol (ZYLOPRIM) 100 mg Tablet Take 300 mg by mouth daily. 03/14/17 Yes PROVIDER, HISTORICAL HUMALOG KWIKPEN 100 unit/mL Insulin Pen INJECT 40 UNITS SUBCUTANEOUSLY BEFORE MEALS 02/16/17 Yes PROVIDER, HISTORICAL ONETOUCH ULTRA TEST Strip TEST DIRECTED THREE TIMES A DAY DIRECTED 10/23/16 Yes PROVIDER, HISTORICAL IMMUNE GLOBULIN,GAMMA,IGG, (IMMUNE GLOBULIN, HUMAN,, IGG, IV) Inject into the vein. 2x month Yes PROVIDER, HISTORICAL UNABLE TO FIND Solumedrol iv with IVIG infusions Yes PROVIDER, HISTORICAL terazosin (HYTRIN) 5 mg Capsule Take 1 capsule by mouth nightly. 08/01/16 Yes PROVIDER, HISTORICAL glipiZIDE (GLUCOTROL XL) 5 mg Tablet Extended Rel 24 hr Take 10 mg by mouth daily. 07/31/16 Yes PROVIDER, HISTORICAL insulin lispro (HUMALOG) Solution Inject subcutaneously 3 times daily (before meals). Indications: SLIDING SCALE Yes PROVIDER, HISTORICAL insulin glargine (LANTUS SOLOSTAR) Insulin Pen Inject subcutaneously 2 times daily. Indications: 25 units in AM, 80 units in PM Yes PROVIDER, HISTORICAL indomethacin (INDOCIN) 50 mg Capsule Take 50 mg by mouth as needed. 09/15/15 Yes PROVIDER, HISTORICAL atenolol (TENORMIN) 50 mg Tablet Take 50 mg by mouth daily. Yes PROVIDER, HISTORICAL furosemide (LASIX) 20 mg Tablet Take 1 tablet by mouth daily. Patient taking differently: Take 20 mg by mouth 2 times daily. 03/25/15 Yes Akash Prieto MD multivitamin Capsule Take 1 capsule by mouth daily. Yes PROVIDER, HISTORICAL omeprazole (PRILOSEC) 40 mg capsule Take 1 capsule by mouth daily. Patient taking differently: Take 40 mg by mouth daily. Take every other day 09/03/13 Yes Bethanie Gorman APRN ondansetron (ZOFRAN) 4 mg tablet Take 1 tablet by mouth as needed. 06/18/13 Yes Bethanie Gorman APRN lisinopril-hydrochlorothiazide (PRINZIDE;ZESTORETIC) 20-12.5 mg per tablet Take 2 tablets by mouth daily. Yes PROVIDER, HISTORICAL ferrous sulfate 324 mg (65 mg iron) Tablet, Delayed Release (E.C.) Take 324 mg by mouth every other day. PROVIDER, HISTORICAL Allergies Allergies Allergen Reactions ??? Methotrexate Hives, Itching and Rash ??? Morphine Itching ??? Wuadekc-Tpf-Mam Reductase Inhibitors Myopathy INTERIM SOCIAL HISTORY: Changes in job, home situation, tobacco or alcohol use since last visit: None CHANGES IN RELEVANT FAMILY HISTORY: None Physical Exam VITAL SIGNS: BP 157/57 (Patient Position: Sitting) Pulse 61 Temp 37 ??C (98.6 ??F) (Temporal) Resp 16 Ht 175.3 cm (5' 9.02) Wt (!) 122 kg (269 lb) SpO2 98% BMI 39.71 kg/m2 GENERAL: Bucky Beht is a well-appearing 57 y.o. male in [...] for BUCKY BETH ( ) as of 06/05/2017 14:38 Ref. Range 09/19/2016 12:20 11/12/2016 08:01 01/08/2017 12:44 01/25/2017 13:45 04/11/2017 09:11 04/11/2017 09:59 05/24/2017 11:43 WBC Latest Ref Range: 4.0 - 9.5 x10(3)/mcL 4.8 4.1 5.3 5.6 RBC Latest Ref Range: 4.58 - 5.54 x10(6)/mcL 2.97 (L) 3.45 (L) 3.22 (L) 2.98 (L) Hemoglobin Latest Ref Range: 13.7 - 16.5 gm/dL 8.4 (L) 10.1 (L) 10.3 (L) 9.8 (L) Hematocrit Latest Ref Range: 40.5 - 48.5 % 25.6 (L) 31.5 (L) 30.7 (L) 29.2 (L) MCV Latest Ref Range: 82.9 - 93.1 fL 86.2 91.3 95.3 (H) 98.0 (H) MCH Latest Ref Range: 27.5 - 32.1 pg 28.3 29.3 32.0 32.9 (H) MCHC Latest Ref Range: 32.0 - 35.7 gm/dL 32.8 32.1 33.6 33.6 RDWSD Latest Ref Range: 36.0 - 45.0 fL 50.9 (H) 60.0 (H) 58.2 (H) 59.7 (H) RDWCV Latest Ref Range: 11.4 - 13.8 % 17.1 (H) 18.1 (H) 16.8 (H) 16.7 (H) Platelets Latest Ref Range: 145 - 357 x10(3)/mcL 120 (L) 94 (L) 69 (L) 76 (L) MPV Latest Ref Range: 7.6 - 12.9 fL 11.2 12.4 13.3 (H) 13.0 (H) Retic Ct % Latest Ref Range: 0.7 - 2.6 % 1.[address] Abs Latest Ref Range: 0.030 - 0.120 x10(6)/mcL 0.060 0.070 Immature Retic% Latest Ref Range: 0.0 - 15.6 % 10.8 20.8 (H) Reticulated Hgb Latest Ref Range: 31.3 - 40.2 pg 31.8 35.3 nRBC % Auto Latest Units: % 0.4 0.0 0.0 0.0 nRBC Abs Auto Latest Ref Range: 0.000 - 0.000 x10(3)/mcL 0.020 (H) 0.000 0.000 0.000 Neutr Abs (ANC) Latest Ref Range: 1.70 - 6.10 x10(3)/mcL 3.21 2.72 3.51 4.28 Neutrophils % Latest Units: % 66.4 66.0 65.8 76.5 Immature Gran % Latest Units: % 0.40 0.20 0.40 0.50 Lymphocytes % Latest Units: % 16.7 17.5 18.2 15.5 Monocytes % Latest Units: % 13.2 6.6 7.9 7.0 Eosinophils % Latest Units: % 2.5 8.5 6.6 0.5 Basophils % Latest Units: % 0.8 1.2 1.1 0.0 Tamara Gran Abs Latest Ref Range: 0.00 - 0.04 x10(3)/mcL 0.02 0.01 0.02 0.03 Lymphocytes Abs Latest Ref Range: 0.9 - 3.2 x10(3)/mcL 0.8 (L) 0.7 (L) 1.0 0.9 Monocyte Abs Latest Ref Range: 0.3 - 0.9 x10(3)/mcL 0.6 0.3 0.4 0.4 Eosinophils Abs Latest Ref Range: 0.0 - 0.4 x10(3)/mcL 0.1 0.4 0.4 0.0 Basophils Abs Latest Ref Range: 0.0 - 0.1 x10(3)/mcL 0.0 0.0 0.1 0.0 Sed Rate Latest Ref Range: 0 - 15 mm/hr 76 (H) 91 (H) PT Latest Ref Range: 11.8 - 14.0 sec 15.2 (H) 13.9 INR Latest Ref Range: 0.9 - 1.1 1.2 (H) 1.1 Sodium Latest Ref Range: 135 - 145 mmol/L 136 140 136 135 Potassium Latest Ref Range: 3.5 - 5.0 mmol/L 3.4 (L) 4.3 4.4 3.6 Chloride Latest Ref Range: 98 - 107 mmol/L 100 104 99 101 CO2 Latest Ref Range: 22 - 31 mmol/L 23 19 (L) 21 (L) 20 (L) Anion Gap Latest Ref Range: 5 - 15 mmol/L 13 17 (H) 16 (H) 14 BUN Latest Ref Range: 10 - 20 mg/dL 29 (H) 55 (H) 46 (H) 87 (H) Creatinine Latest Ref Range: 0.80 - 1.50 mg/dL 1.42 2.52 (H) 1.67 (H) 2.18 (H) Estimated GFR Latest Ref Range: >=60 51 (L) 26 (L) 42 (L) 31 (L) Glucose Lvl Latest Ref Range: 65 - 199 mg/dL 110 345 (H) 232 (H) 308 (H) Calcium Latest Ref Range: 8.5 - 10.5 mg/dL 8.8 9.2 9.5 8.6 Hemoglobin A1C Latest Ref Range: 4.3 - 5.6 % 6.4 (H) 7.8 (H) Est Avg Gluc Latest Units: mg/dL 137 177 Total Protein Latest Ref Range: 6.1 - 8.0 gm/dL 8.5 (H) 8.2 (H) 8.7 (H) 9.4 (H) Albumin Latest Ref Range: 3.2 - 5.2 gm/dL 2.9 (L) 3.6 3.7 3.2 Total Bilirubin Latest Ref Range: 0.2 - 1.3 mg/dL 0.8 0.5 0.5 0.4 Bili, Direct Latest Ref Range: 0.0 - 0.3 mg/dL 0.2 Alk Phos Latest Ref Range: 40 - 120 unit/L 102 118 117 103 AST Latest Ref Range: 0 - 39 unit/L 20 22 22 23 ALT Latest Ref Range: 0 - 55 unit/L 14 16 21 24 LDH Latest Ref Range: 110 - 220 unit/L 164 Ferritin Latest Ref Range: 30 - 400 ng/mL 108 436 (H) Folate Lvl Latest Ref Range: 4.8 - 24.2 ng/mL >20.0 Iron Latest Ref Range: 45 - 160 mcg/dL 62 51 TIBC Latest Ref Range: 250 - 450 mcg/dL 405 312 Iron Saturation Latest Ref Range: 20 - 50 % 15 (L) 16 (L) Vitamin B-12 Latest Ref Range: 207 - 974 pg/mL 1101 (H) Radiology: No new images reviewed today Assessment & Plan: Bucky Beth is a 57 y.o. male who presents [...] 1. Anemia - --full anemia w/u in 2016 found only to be iron deficiency - this despite him being on oral iron. --s/p 4 doses of Venofer 300 mg at [facility] - where he already is receiving his IVIg. --Given repleted iron stores s/p 4 weekly infusions of Venofer, we will hold on further Venofer at this time [iron saturation may be better to follow than ferritin given chronic inflammatory process] --Epo level inappropriately low for Hgb. --Given chronic renal impairment, will start Procrit 20,000Units SQ injection weekly for Hgb < 12gm/dL to be arranged at [facility] for patient's convenience --Will schedule renal consult given chronic renal dysfunction 2. 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 No clinically significant bleeding 3. Fatigue - multifactorial, repletion of iron stores did not seem to improve fatigue much. 4. Follow-up - We will arrange for Bucky to RTC in approximately 4 months. Karen Lugo, MSN, SUPERVISOR IN CHARGE Nurse Practitioner Section of Hematology/Oncology Office Phone: [phone] Copies MD Donato Martinez MD documented in this encounter Plan of Treatment Upcoming Encounters Date Type Specialty Care Team Description 06/19/2022 Office Visit Rheumatology Richi Blackmon MD [facility] DR RHEUMATOLOGY [place], [place] [address] (Wo rk) Scheduled Procedures Name Priority Associated Diagnoses Date/Time EGD, UPPER GI ENDOSCOPY Family hx of colon cance r COLONOSCOPY, DIAGNOSTIC Family hx of colon cance r documented as of this encounter Results Reticulocyte Count (09/02/2017 10:17 AM EDT) athologist Signature Retic Ct % 0.8 0.7 - 2.6 [facility] Retic Ct Abs 0.030 0.030 - [facility] 0.120 [facility] x10(6)/[facility]ORAT[facility] Immature Retic% 7.9 0.0 - 15.6 [facility] Reticulated Hgb 33.8 31.3 - [facility] 40.2 pg [facility] Specimen Anatomical Collection Method Collection Time Receive d Time (Source) Location / / Volume Laterality Blood specimen 09/02/2017 10:17 8 (specimen) AM EDT 10:29 AM EDT Resulting Agency Comment Spec In Lab Karen Montejo Brittney VARGAS HEMATOLOGY ORDERABLES Performing Organization Address City/State/[place] [address] Ferritin (09/02/2017 10:17 AM EDT) athologist Signature Ferritin 154 30 - 400 [place] ng/mL [facility] Comment: Pediatric reference ranges not verified at [facility], interpret with caution. Reference ranges for females greater kayleigh n 50 years of age approach values for men, i.e., 30-400 ng/mL. Specimen Anatomical Collection Method Collection Time Receive d Time (Source) Location / / Volume Laterality Blood specimen 09/02/2017 10:17 8 (specimen) AM EDT 10:29 AM EDT Resulting Agency Comment Spec In Lab Karen Montejo Brittney LIAON CHEMISTRY ORDERABLES Performing Organization Address City/[facility]/[place]IP [place] [address] (ABNORMAL) Iron and TIBC (09/02/2017 10:17 AM EDT) athologist Signature Iron 50 45 - 160 [facility] mcg/dL [facility] TIBC 332 250 - 450 [facility] JUVENTINO mcg/dL [facility] Iron Saturation 15 (L) 20 - 50 % [facility] Specimen Anatomical Collection Method Collection Time Receive d Time (Source) Location / / Volume Laterality Blood specimen 09/02/2017 10:17 8 (specimen) AM EDT 10:29 AM EDT Resulting Agency Comment Spec In Lab Karen Montejo Brittney VARGAS CHEMISTRY ORDERABLES Performing Organization Address City/[facility]/[place] [address] (ABNORMAL) Comprehensive metabolic panel (non-fasting) (09/02/2017 10:17 AM EDT) P athologist Signature Glucose Lvl 310 (H) 65 - 199 [facility] mg/dL [facility] Comment: Diabetes: >=200 mg/dL plus symp toms BUN 62 (H) 10 - 20 mg/dL [facility] Creatinine 1.87 (H) 0.80 - 1.50 mg/dL [facility] Sodium 134 (L) 135 - 145 mmol/L [facility] Potassium 5.0 3.5 - 5.0 mmol/L [facility] Comment: Please note: ??Patients with WBC >100,00 0 may have falsely elevated Potassium levels. ??For accurate Potassium quantif ication in these patients send serum separator tube (gold top) for subsequent determinations. ??Contact the Clinical Chemistry Laboratory if there are any qu estions. Chloride 97 (L) 98 - 107 mmol/L [facility] CO2 21 (L) 22 - 31 mmol/L [facility] Anion Gap 16 (H) 5 - 15 mmol/L [facility] Calcium 9.0 8.5 - 10.5 mg/dL [facility] Total Protein 8.0 6.1 - 8.0 gm/dL [facility] Albumin 3.7 3.2 - 5.2 gm/dL [facility] AST 27 0 - 39 unit/L [facility] ALT 23 0 - 55 unit/L [facility] Alk Phos 145 (H) 40 - 120 unit/L [facility] Total Bilirubin 0.4 0.2 - 1.3 mg/dL [facility] Estimated GFR 37 (L) >=60 [facility] Comment: The reported eGFR should be multiplied b y 1.2 for patients. The MDRD is not an appropriate measure o f renal function for patients with body mass extremes or in patients with acute kidney failure. http://[employer]/DHnkdep http://[employer]/DHMCnkf Specimen Anatomical Collection Method Collection Time Receive d Time (Source) Location / / Volume Laterality Blood specimen 09/02/2017 10:17 8 (specimen) AM EDT 10:29 AM EDT Resulting Agency Comment Spec In Lab Karen Lugo SUPERVISOR IN CHARGE CHEMISTRY ORDERABLES Performing Organization Address City/State/Z[place] [address] documented in this encounter Visit Diagnoses Diagnosis Anemia, unspecified type documented in this encounter Care Teams Jewel Bearing Broacher Relationship Specialty Start Date End Date Jazmine Baer MD PCP - General 11/07/10 [address] [place] [address] documented as of this encounter
--- OUTSIDE RECORDS SUMMARY | 2022-04-11 10:51 | XMS_ITS | Encounter Summary ---
:1960 Author Organization [facility] [place] [address] Care Team Providers Name Role Phone Jazmine Baer MD Primary Care Provider Encounter Details Date Type Department Care Team Description 05/24/2017 Hospital Encounter Hematology and Anemia, unspecified type; [place] [facility] [place]; [facility] [place] [phone] Social History Tobacco Use Types Packs/Day [...] 1 capsule by mouth 0 daily. allopurinol Take 1 tablet by mouth 0 04/16/2017 1 07/31/2016 (ZYLOPRIM) 300 mg daily. Tablet glipiZIDE (GLUCOTROL 0 03/15/2017/08/2017 XL) 10 mg [...] Visit Rheumatology Richi Blackmon MD [facility] ER RHEUMATOLOGY [place], [place] [address] (Wo rk) Scheduled Procedures Name Priority Associated Diagnoses Date/Time EGD, UPPER GI ENDOSCOPY Family hx of colon cance r COLONOSCOPY, DIAGNOSTIC Family hx of colon cance r documented as of this encounter Procedures Procedure Name Priority Date/Time Associated Comments Diagnosis HEMOGRAM Routine 05/24/2017 11:43 Anemia, unspecified Resu lts for this AM EST type procedure are in Thrombocytopenia the results Chronic fatigue section. DIFFERENTIAL, Routine 05/24/2017 11:43 Anemia, unspecified Res ults for this AUTOMATED AM EST type procedure are in Thrombocytopenia the results Chronic fatigue section. IRON AND TIBC Routine 05/24/2017 11:43 Anemia, unspecified Res ults for this AM EST type procedure are in Thrombocytopenia the results Chronic fatigue section. SEDIMENTATION RATE STAT 05/24/2017 11:43 Anemia, unspecifie d Results for this AM EST type procedure are in Thrombocytopenia the results Chronic fatigue section. RETICULOCYTE COUNT Routine 05/24/2017 11:43 Resul ts for this AM EST procedure are i n the results section. CBC (WITH DIFF) Routine 05/24/2017 11:43 Anemia, unspecified AM EST type Thrombocytopenia Chronic fatigue FERRITIN Routine 05/24/2017 11:43 Anemia, unspecified Resu lts for this AM EST type procedure are in Thrombocytopenia the results Chronic fatigue section. COMPREHENSIVE Routine 05/24/2017 11:43 Anemia, unspecified Res ults for this METABOLIC PANEL AM EST type procedure are in (NON-FASTING) Thrombocytopenia the results Chronic fatigue section. documented in this encounter Results (ABNORMAL) Reticulocyte Count (05/24/2017 11:43 AM EST) Patholo gist Method Time Signature Retic Ct % 2.4 0.7 - 2.6 [facility] % [facility] Retic Ct Abs 0.070 0.030 - [facility] 0.120 [facility] x10(6)/[facility] L LABORATORY Immature Retic% 20.8 (H) 0.0 - [facility] 15.6 % [facility] Reticulated Hgb 35.3 31.3 - [facility] 40.2 pg [facility] Specimen Anatomical Collection Method Collection Time Receive d Time (Source) Location / / Volume Laterality Blood specimen Venous Draw / 05/24/2017 11:43 05/24/20 17 (specimen) Unknown AM EST 11:54 AM EST Resulting Agency Comment Spec In Lab Jayden Ignacio MD HEMATOLOGY ORDERABLES Performing Organization Address City/State/[place] [address] Differential, Automated (05/24/2017 11:43 AM EST) athologist Signature Neutrophils % 76.5 % [facility] Neutr Abs (ANC) 4.28 1.70 - [facility] 6.10 [facility] x10(3)/[facility] LABORATORY Lymphocytes % 15.5 % [facility] Lymphocytes Abs 0.9 0.9 - 3.2 [facility] x10(3)/[facility] LABORATORY Monocytes % 7.0 % [facility] Monocyte Abs 0.4 0.3 - 0.9 [facility] x10(3)/[facility] LABORATORY Eosinophils % 0.5 % [facility] Eosinophils Abs 0.0 0.0 - 0.4 [facility] x10(3)/[facility] LABORATORY Basophils % 0.0 % [facility] Basophils Abs 0.0 0.0 - 0.1 [facility] x10(3)/[facility] LABORATORY Immature Gran % 0.50 % [facility] Comment: Immature granulocytes(IG's)percentage an d absolute count will include metamyelocytes, myelocytes, and promyelo cytes. Blood smears from CBCs yielding IG's will be scanned manually for concor dance. If this scan disagrees with the automated IG or if promyelocytes are not ed, a manual differential will be performed. Tamara Gran Abs 0.03 0.00 - 0.04 x10(3)/[facility] LABORATORY Specimen Anatomical Collection Method Collection Time Receive d Time (Source) Location / / Volume Laterality Blood specimen 05/24/2017 11:43 7 (specimen) AM EST 11:54 AM EST Resulting Agency Comment Spec In Lab Jayden Ignacio MD HEMATOLOGY ORDERABLES Performing Organization Address City/State/[place] [address] (ABNORMAL) Hemogram (05/24/2017 11:43 AM EST) Analysis Performed At Patho logist Time Signature WBC 5.6 4.0 - 9.5 [facility] x10(3)/[facility] LABORATORY RBC 2.98 (L) 4.58 - [facility] 5.54 [facility] x10(6)/[facility] LABORATORY Hemoglobin 9.8 (L) 13.7 - [place] 16.5 gm/dL [facility] Hematocrit 29.2 (L) 40.5 - [place] 48.5 % [facility] MCV 98.0 (H) 82.9 - [place] 93.1 [facility] LABORATORY MCH 32.9 (H) 27.5 - [place] 32.1 pg [facility] MCHC 33.6 32.0 - [place] 35.7 gm/dL [facility] Platelets 76 (L) 145 - 357 [facility] x10(3)/[facility] LABORATORY RDWSD 59.7 (H) 36.0 - [place] 45.0 [facility] LABORATORY RDWCV 16.7 (H) 11.4 - [facility] 13.8 % [facility] MPV 13.0 (H) 7.6 - 12.9 [facility] LABORATORY nRBC % Auto 0.0 % [facility] nRBC Abs Auto 0.000 0.000 - [facility] 0.000 [facility] x10(3)/[facility] LABORATORY Specimen Anatomical Collection Method Collection Time Receive d Time (Source) Location / / Volume Laterality Blood specimen 05/24/2017 11:43 7 (specimen) AM EST 11:54 AM EST Resulting Agency Comment Spec In Lab Jayden Ignacio MD HEMATOLOGY ORDERABLES Performing Organization Address City/State/[place] [address] (ABNORMAL) Ferritin (05/24/2017 11:43 AM EST) athologist Signature Ferritin 436 (H) 30 - 400 [facility] ng/mL [facility] Comment: Pediatric reference ranges not verified at [facility], interpret with caution. Reference ranges for females greater kayleigh n 50 years of age approach values for men, i.e., 30-400 ng/mL. Specimen Anatomical Collection Method Collection Time Receive d Time (Source) Location / / Volume Laterality Blood specimen 05/24/2017 11:43 7 (specimen) AM EST 11:54 AM EST Resulting Agency Comment Spec In Lab Jayden Ignacio MD CHEMISTRY ORDERABLES Performing Organization Address City/State/ZIP Code Phon e Number [address] (ABNORMAL) Iron and TIBC (05/24/2017 11:43 AM EST) P athologist Signature Iron 51 45 - 160 [facility] mcg/dL [facility] TIBC 312 250 - 450 [facility] mcg/dL [facility] Iron Saturation 16 (L) 20 - 50 % [facility] Specimen Anatomical Collection Method Collection Time Receive d Time (Source) Location / / Volume Laterality Blood specimen 05/24/2017 11:43 7 (specimen) AM EST 11:54 AM EST Resulting Agency Comment Spec In Lab Jayden Ignacio MD CHEMISTRY ORDERABLES Performing Organization Address City/[facility]/ZIP [place] [address] (ABNORMAL) Sedimentation rate (05/24/2017 11:43 AM EST) P athologist Signature Sed Rate 91 (H) 0 - 15 [facility] mm/hr [facility] Specimen Anatomical Collection Method Collection Time Receive d Time (Source) Location / / Volume Laterality Blood specimen 05/24/2017 11:43 7 (specimen) AM EST 11:54 AM EST Resulting Agency Comment Spec In Lab Jayden Ignacio MD HEMATOLOGY ORDERABLES Performing Organization Address City/[facility]/ZIP [place] [address] (ABNORMAL) Comprehensive metabolic panel (non-fasting) (05/24/2017 11:43 AM EST) P athologist Signature Glucose Lvl 308 (H) 65 - 199 [facility] mg/dL [facility] Comment: Diabetes: >=200 mg/dL plus symp toms BUN 87 (H) 10 - 20 mg/dL [facility] Creatinine 2.18 (H) 0.80 - 1.50 mg/dL [facility] Sodium 135 135 - 145 mmol/L [facility] Potassium 3.6 3.5 - 5.0 mmol/L [facility] Comment: Please note: ??Patients with WBC >100,00 0 may have falsely elevated Potassium levels. ??For accurate Potassium quantif ication in these patients send serum separator tube (gold top) for subsequent determinations. ??Contact the Clinical Chemistry Laboratory if there are any qu estions. Chloride 101 98 - 107 mmol/L [facility] CO2 20 (L) 22 - 31 mmol/L [facility] Anion Gap 14 5 - 15 mmol/L [facility] Calcium 8.6 8.5 - 10.5 mg/dL [facility] Total Protein 9.4 (H) 6.1 - 8.0 gm/dL [facility] Albumin 3.2 3.2 - 5.2 gm/dL [facility] AST 23 0 - 39 unit/L [facility] ALT 24 0 - 55 unit/L [facility] Alk Phos 103 40 - 120 unit/L [facility] Total Bilirubin 0.4 0.2 - 1.3 mg/dL [facility] Estimated GFR 31 (L) >=60 [facility] Comment: The reported eGFR should be multiplied b y 1.2 for patients. The MDRD is not an appropriate measure o f renal function for patients with body mass extremes or in patients with acute kidney failure. http://[employer]/DHnkdep http://[employer]/DHMCnkf Specimen Anatomical Collection Method Collection Time Receive d Time (Source) Location / / Volume Laterality Blood specimen 05/24/2017 11:43 7 (specimen) AM EST 11:54 AM EST Resulting Agency Comment Spec In Lab Jayden Ignacio MD CHEMISTRY ORDERABLES Performing Organization Address City/State/[place] [address] documented in this encounter Visit Diagnoses Diagnosis Anemia, unspecified type Thrombocytopenia Thrombocytopenia, unspecified Chronic fatigue Other malaise and fatigue documented in this encounter Care Teams Supervisor Post Wave Relationship Specialty Start Date End Date Jazmine Baer MD PCP - General 11/07/10 [address] [place] [address] documented as of this encounter
--- OUTSIDE RECORDS SUMMARY | 2022-04-11 10:51 | XMS_ITS | Encounter Summary ---
:1960 Author Organization [facility] [address] Care Team Providers Name Role Phone Jazmine Baer MD Primary Care Provider Encounter Details Date Type Department Care Team Description 06/18/2017 Telephone [place] [facility] [place] [phone] Social History Tobacco Use Types Packs/Day Years Used Date Never Smoker Smokeless Tobacco: Never Used Alcohol Use Standard Drinks/Week Comments No 0 (1 standard drink = 0.6 oz pure alcoho l) Sex Assigned at Date Recorded Not on file documented as of this encounter Miscellaneous Notes Telephone Encounter - Anup Jacques RN - 06/18/2017 9:42 AM EST Received call from Sue at [facility] infusion, states need clarification on IVIG orders. Orders clarified with Dr. Prieto and faxed to [facility] and Sue notified. documented in this encounter Plan of Treatment Upcoming Encounters Date Type Specialty Care Team Description 06/19/2022 Office Visit Rheumatology Richi Blackmon MD [facility] ER DR RHEUMATOLOGY [place], [place] [address] (Wo rk) Scheduled Procedures Name Priority Associated Diagnoses Date/Time EGD, UPPER GI ENDOSCOPY Family hx of colon cance r COLONOSCOPY, DIAGNOSTIC Family hx of colon cance r documented as of this encounter Visit Diagnoses Not on filedocumented in this encounter Care Teams Sign Builder Relationship Specialty Start Date End Date Jazmine Baer MD PCP - General 11/07/10 [address] [place] [address] documented as of this encounter
--- OUTSIDE RECORDS SUMMARY | 2022-04-11 10:51 | XMS_ITS | Encounter Summary ---
:1960 Author Organization [facility] [place] [address] Care Team Providers Name Role Phone Jazmine Baer MD Primary Care Provider Reason for Referral Consultation (Routine) - Duplicate Referral Specialty Diagnoses / Procedures Referred By Contact Refer red To Contact Hematology and Diagnoses Anemia, unspecified type Akash Prieto MD [facility]c 3k Oncology [facility] [address] [place] [phone] Fax: Referral ID Status Reason Start Expiration Visits Visits Date Date Requested Authorized [id number] Duplicate Consult, 01/09/2017 01/09/2018 1 1 Referral Test & Treat Encounter Details Date Type Department Care Team Description 01/09/2017 Orders Only Rheumatology at [facility] Akash Prieto, Anemia, unspecified [facility] [place] [phone] RHEUMATOLOGY DEP [place], [place] [address] Social History Tobacco Use Types [...] Rheumatology Richi Blackmon MD [facility] ER DR RHEUMATOLOGY [place], [place] [address] (Wo rk) Scheduled Procedures Name Priority Associated Diagnoses Date/Time EGD, UPPER GI ENDOSCOPY Family hx of colon cance r COLONOSCOPY, DIAGNOSTIC Family hx of colon cance r Scheduled Referrals Name Type Priority Associated Diagnoses Order S chedule Referral to Outpatient Referral Routine Anemia, unspecified O rdered: Hematology and type 01/09/2017 Oncology documented as of this encounter Visit Diagnoses Diagnosis Anemia, unspecified type documented in this encounter Care Teams County Attorney Relationship Specialty Start Date End Date Jazmine Baer MD PCP - General 11/07/10 [address] [place] [address] documented as of this encounter
--- OUTSIDE RECORDS SUMMARY | 2022-04-11 10:51 | XMS_ITS | Encounter Summary ---
:1960 Author Organization [facility] [place] [address] Care Team Providers Name Role Phone Jazmine Baer MD Primary Care Provider Reason for Visit Reason Comments Injections Epoietan Encounter Details Date Type Department Care Team Description 07/26/2017 Infusion Hematology Oncology at [facility], unspecified type [address] [phone] Social History Tobacco Use Types Packs/Day Years Used Date Never Smoker Smokeless Tobacco: Never Used Alcohol Use Standard Drinks/Week Comments No 0 (1 standard drink = 0.6 oz pure alcoho l) Sex Assigned at Date Recorded Not on file documented as of this encounter Progress Notes Ellen Ascencio RN - 07/26/2017 1:00 PM EST Infusion Note Diagnosis:Anemia Treatment: Procrit Injection Labs: H/H 10.8/35.6 Procrit 20,000 mcg injected in right arm. Patient aware to call clinic with any questions or concerns. Plan: Return to clinic weekly as scheduled with every other week labs. 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
--- OUTSIDE RECORDS SUMMARY | 2022-04-11 10:51 | XMS_ITS | Encounter Summary ---
:1960 Author Organization [facility] [place] [address] Care Team Providers Name Role Phone Jazmine Baer MD Primary Care Provider Reason for Visit Reason Comments Injections Epoietan Encounter Details Date Type Department Care Team Description 08/09/2017 Infusion Hematology Oncology at [facility], unspecified type [address] [phone] Social History Tobacco Use Types Packs/Day Years Used Date Never Smoker Smokeless Tobacco: Never Used Alcohol Use Standard Drinks/Week Comments No 0 (1 standard drink = 0.6 oz pure alcoho l) Sex Assigned at Date Recorded Not on file documented as of this encounter Last Filed Vital Signs Vital Sign Reading Time Taken Comments Blood Pressure 144/65 08/09/2017 12:43 PM EST Pulse 82 08/09/2017 12:43 PM EST Temperature 36.7 ??C (98.1 ??F) 08/09/2017 12:43 PM EST Respiratory Rate 16 08/09/2017 12:43 PM EST Oxygen Saturation 99% 08/09/2017 12:43 PM EST Inhaled Oxygen Concentration - - Weight 120.6 kg (265 lb 12.8 oz) 08/09/2017 12:43 PM EST Height 175.3 cm (5' 9.02) 08/09/2017 12:43 PM EST Body Mass Index 39.23 08/09/2017 12:43 PM EST documented in this encounter Progress Notes Ellen Ascencio RN - 08/09/2017 1:00 PM EST Infusion Note Diagnosis: Anemia Treatment: Procrit Injection Labs: H/H 11.7/36.5 Procrit 20,000 mcg injected in right arm. Patient aware to call clinic with any questions or concerns. Plan: Return to clinic weekly as scheduled with every other week labs. documented in this encounter Plan of Treatment Upcoming Encounters Date Type Specialty Care Team Description 06/19/2022 Office Visit Rheumatology Richi Blackmon MD [facility] DR RHEUMATOLOGY [place], [place] [address] (Wo rk) Scheduled Procedures [...] Date Dose Rate Site epoetin matt Given 08/09/2017 12:47 PM 20,000 Units L eft Arm (EPOGEN;PROCRIT) injection EST 20,000 Units 20,000 Units, Intravenous, ONCE, 1 dose, On Sat08/09/17 at 1300, Repeat CBC every other week. Hold for Hgb > 12, Routine, What is the indication of use? Chronic Kidney Disease (CKD) documented in this encounter Care Teams Comic Illustrator Relationship Specialty Start Date End Date Jazmine Baer MD PCP - General 11/07/10 [address] [place] [address] documented as of this encounter
--- OUTSIDE RECORDS SUMMARY | 2022-04-11 10:51 | XMS_ITS | Encounter Summary ---
:1960 Author Organization [facility] [place] [address] Care Team Providers Name Role Phone Jazmine Baer MD Primary Care Provider Reason for Visit Reason Comments Injections Procrit injection Encounter Details Date Type Department Care Team Description 08/16/2017 Infusion Hematology Oncology at [facility], unspecified type [address] [phone] Social History Tobacco Use Types Packs/Day Years Used Date Never Smoker Smokeless Tobacco: Never Used Alcohol Use Standard Drinks/Week Comments No 0 (1 standard drink = 0.6 oz pure alcoho l) Sex Assigned at Date Recorded Not on file documented as of this encounter Last Filed Vital Signs Vital Sign Reading Time Taken Comments Blood Pressure 125/56 08/16/2017 12:49 PM EST Pulse 88 08/16/2017 12:49 PM EST Temperature 36.6 ??C (97.9 ??F) 08/16/2017 12:49 PM EST Respiratory Rate 18 08/16/2017 12:49 PM EST Oxygen Saturation 99% 08/16/2017 12:49 PM EST Inhaled Oxygen Concentration - - Weight 119.1 kg (262 lb 9.6 oz) 08/16/2017 12:49 PM EST Height 175.3 cm (5' 9.02) 08/16/2017 12:49 PM EST Body Mass Index 38.76 08/16/2017 12:49 PM EST documented in this encounter Progress Notes Destiny Deshpande RN - 08/16/2017 1:00 PM EST Infusion Note Diagnosis: Anemia Treatment: Procrit Injection Labs: H/H 11.7/36.5 Procrit 20,000 mcg injected in left arm. Patient aware to call clinic with any questions or concerns. Plan: Return to clinic weekly as scheduled with every other week labs. documented in this encounter Plan of Treatment Upcoming Encounters Date Type Specialty Care Team Description 06/19/2022 Office Visit Rheumatology Richi Blackmon MD [facility] DR RHEUMATOLOGY [place], [place] [address] (Wo rk) Scheduled Procedures Name [...] Date Dose Rate Site epoetin matt Given 08/16/2017 1:00 PM 20,000 Units Le ft Arm (EPOGEN;PROCRIT) injection EST 20,000 Units 20,000 Units, Intravenous, ONCE, 1 dose, On Sat08/16/17 at 1300, Repeat CBC every other week. Hold for Hgb > 12, Routine, What is the indication of use? Chronic Kidney Disease (CKD) documented in this encounter Care Teams Grain I Farmworker Relationship Specialty Start Date End Date Jazmine Baer MD PCP - General 11/07/10 [address] [place] [address] documented as of this encounter
--- OUTSIDE RECORDS SUMMARY | 2022-04-11 10:51 | XMS_ITS | Encounter Summary ---
:1960 Author Organization [facility] [place] [address] Care Team Providers Name Role Phone Jazmine Baer MD Primary Care Provider Encounter Details Date Type Department Care Team Description 05/29/2017 Orders Only Hematology and Brittney, Karen M, Anemia o f chronic Oncology at [facility] SUPERVISOR renal failure, stage 3 [facility] [place] [address] HEMATOLOGY/ONCOLOG [phone] Y DEPT. [place] [id number] Social History Tobacco Use Types Packs/Day Years [...] Richi Blackmon MD [facility] ER RHEUMATOLOGY DEP [place], [place] [address] (Wo rk) Scheduled Procedures Name Priority Associated Diagnoses Date/Time EGD, UPPER GI ENDOSCOPY Family hx of colon cance r COLONOSCOPY, DIAGNOSTIC Family hx of colon cance r documented as of this encounter Visit Diagnoses Diagnosis Anemia of chronic renal failure, stage 3 (moderate) documented in this encounter Care Teams Elevator Worker Relationship Specialty Start Date End Date Jazmine Baer MD PCP - General 11/07/10 [address] [place] [address] documented as of this encounter
--- OUTSIDE RECORDS SUMMARY | 2022-04-11 10:51 | XMS_ITS | Encounter Summary ---
:1960 Author Organization [facility] [place] [address] Care Team Providers Name Role Phone Jazmine Baer MD Primary Care Provider Reason for Visit Reason Comments Injections Procrit Encounter Details Date Type Department Care Team Description 06/28/2017 Infusion Hematology Oncology at [facility], unspecified type [address] [phone] Social History Tobacco Use Types Packs/Day Years Used Date Never Smoker Smokeless Tobacco: Never Used Alcohol Use Standard Drinks/Week Comments No 0 (1 standard drink = 0.6 oz pure alcoho l) Sex Assigned at Date Recorded Not on file documented as of this encounter Last Filed Vital Signs Vital Sign Reading Time Taken Comments Blood Pressure 155/60 06/28/2017 12:09 PM EST Pulse 61 06/28/2017 12:09 PM EST Temperature 36.5 ??C (97.7 ??F) 06/28/2017 12:09 PM EST Respiratory Rate 18 06/28/2017 12:09 PM EST Oxygen Saturation - - Inhaled Oxygen Concentration - - Weight - - Height - - Body Mass Index - - documented in this encounter Progress Notes Anjali Barriga RN - 06/28/2017 12:30 PM EST Infusion Note Diagnosis:Anemia Treatment: Procrit Injection Labs: H/H 10.3/32.5 Procrit 20,000 mcg injected in left arm. Patient aware to call clinic with any questions or concerns. Plan: Return to clinic weekly as scheduled with every other week labs. documented in this encounter Plan of Treatment Upcoming Encounters Date Type Specialty Care Team Description 06/19/2022 Office Visit Rheumatology Richi Blackmon MD [facility] ER [facility] RHEUMATOLOGY [place], [place] [address] (Wo rk) Scheduled Procedures Name [...] Date Dose Rate Site epoetin matt Given 06/28/2017 12:40 PM 20,000 Units L eft Arm (EPOGEN;PROCRIT) injection EST 20,000 Units 20,000 Units, Intravenous, ONCE, 1 dose, On Sat06/28/17 at 1245, Repeat CBC every other week., Routine, What is the indication of use? 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
--- OUTSIDE RECORDS SUMMARY | 2022-04-11 10:51 | XMS_ITS | Encounter Summary ---
:1960 Author Organization [facility] [place] [address] Care Team Providers Name Role Phone Jazmine Baer MD Primary Care Provider Reason for Visit Reason Comments Injections Procrit Encounter Details Date Type Department Care Team Description 07/12/2017 Infusion [facility] type [address] [phone] Social History Tobacco Use Types Packs/Day Years Used Date Never Smoker Smokeless Tobacco: Never Used Alcohol Use Standard Drinks/Week Comments No 0 (1 standard drink = 0.6 oz pure alcoho l) Sex Assigned at Date Recorded Not on file documented as of this encounter Progress Notes Ellen Ascencio RN - 07/12/2017 1:00 PM EST Infusion Note Diagnosis:Anemia Treatment: Procrit Injection Labs: H/H 10.3/32.4 Procrit 20,000 mcg injected in right arm. Patient aware to call clinic with any questions or concerns. Plan: Return to clinic weekly as scheduled with every other week labs. documented in this encounter Plan of Treatment Upcoming Encounters Date Type Specialty Care Team Description 06/19/2022 Office Visit Rheumatology Richi Blackmon MD [facility] RHEUMATOLOGY [place], [place] [address] (Wo rk) Scheduled Procedures Name [...] Date Dose Rate Site epoetin matt Given 07/12/2017 12:30 PM 20,000 Units L eft Arm (EPOGEN;PROCRIT) injection EST 20,000 Units 20,000 Units, Intravenous, ONCE, 1 dose, On Sat07/12/17 at 1300, Repeat CBC every other week., Routine, What is the indication of use? 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
--- OUTSIDE RECORDS SUMMARY | 2022-04-11 10:51 | XMS_ITS | Encounter Summary ---
:1960 Author Organization [employer] [place] [address] Care Team Providers Name Role Phone Jazmine Baer MD Primary Care Provider Reason for Visit Reason Comments Follow-up Encounter Details Date Type Department Care Team Description 01/25/2017 Office Visit Hematology and Anastasia Ignacio MD [facility] DR HEMATOLOGY/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 [address] Thrombocytopenia; [facility] [place] [address] Social History Tobacco Use Types Packs/Day Years Used Date Never Smoker Smokeless Tobacco: Never Used Alcohol Use Standard Drinks/Week Comments No 0 (1 standard drink = 0.6 oz pure alcoho l) Sex Assigned at Date Recorded Not on file documented as of this encounter Last Filed Vital Signs Vital Sign Reading Time Taken Comments Blood Pressure 139/55 01/25/2017 3:28 PM EDT Pulse 66 01/25/2017 3:28 PM EDT Temperature 36.8 ??C (98.2 ??F) 01/25/2017 3:28 PM EDT Respiratory Rate 18 01/25/2017 3:28 PM EDT Oxygen Saturation 98% 01/25/2017 3:28 PM EDT Inhaled Oxygen Concentration - - Weight 123.3 kg (271 lb 12.8 oz) 01/25/2017 3:28 PM EDT Height 175.3 cm (5' 9.02) 01/25/2017 3:28 PM EDT Body Mass Index 40.12 01/25/2017 3:28 PM EDT documented in this encounter Progress Notes Jayden Ignacio MD - 01/25/2017 3:30 [place] [address] HEMATOLOGY/BMT CONSULTATION VISIT NOTE Chief Complaint: Bucky Acevedo is a 56 y.o. male referred by Dr. Baer for evaluation of bicytopenia (anemia and thrombocytopenia) . Data Review (From Jazmine Baer MD and eD) Oringinal History of Present Illness (03/16/16) Bucky Acevedo is a 56 y.o. 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 He was referred for evaluation ofiron deficiency anemia and thrombocytopenia.He had been evaluated by Dr Evangelista at [facility] [id number] for anemia and thrombocytopenia.At that time a bone marrow biopsy was done which was normal.He states that he was started on iron supplementation pills at that time however, he used them briefly before stopping.He is currently on oral ferrous sulfate alternating with ferrous gluconate daily. He states that Ferrous gluconate was started by [facility] because of constipation with ferrous sulfate. He [...] Panel - no gene varients detected Interim HPI Bucky says that he feels about the same. Has noted no bleeding or melena. Says he has had upper andlower endoscopies as well as pill endoscopy and bleeding source was found. No recent infections. Energy level not great but stable. No new medications or OTC drugs. Review of Systems: Constitutional --Energy level: +Fatigue - about the same --Pain: none --Fevers/chills/sweats: No --Unexpected weight loss or gain: No Eyes, ears, nose, throat --No change in vision --No change hearing, no oral or throat pain or thrush Cardiovascular --Chest pain: No --Palpitations: No Respiratory --Cough: No --SOB, CALDERON: No Gastrointestinal --Appetite: good --Early satiety: No --Nausea/vomiting/diarrhea/constipation: Occasional nausea and constipation - unchanged --Melena/Hematochezia: No Genitourinary --Dysuria or hematuria: No Musculoskeletal --Muscle pain or weakness:generalized muscle weakness - unchanged --Joint pain or swelling: Ankle swelling Immune System --Recent infections: No Hematology/Lymph --Bruising/bleeding/melena: occasional nose bleeds --Enlarged nodes or other masses: No Skin [...] with statins ??? Obesity ??? Shingles 2010 Medications Medications 01/25/17 1531 Medication Sig Taking? allopurinol (ZYLOPRIM) 300 mg Tablet TAKE ONE TABLET BY MOUTH EVERY DAY Yes ONETOUCH ULTRA TEST Strip TEST DIRECTED THREE TIMES A DAY DIRECTED Yes terazosin (HYTRIN) 5 mg Capsule Take 1 capsule by mouth nightly. Yes glipiZIDE (GLUCOTROL XL) 5 mg Tablet Extended Rel 24 hr Take 1 tablet by mouth daily. Yes insulin lispro (HUMALOG) Solution Inject subcutaneously 3 times daily (before meals). Indications: SLIDING SCALE Yes insulin glargine (LANTUS SOLOSTAR) Insulin Pen Inject subcutaneously 2 times daily. Indications: 25 units in AM, 80 units in PM Yes ferrous sulfate 324 mg (65 mg iron) Tablet, Delayed Release (E.C.) Take 324 mg by mouth every other day. Yes atenolol (TENORMIN) 50 mg Tablet Take 50 mg by mouth daily. Yes furosemide (LASIX) 20 mg Tablet Take 1 tablet by mouth daily. Patient taking differently: Take 20 mg by mouth 2 times daily. Yes multivitamin Capsule Take 1 capsule by mouth daily. Yes omeprazole (PRILOSEC) 40 mg capsule Take 1 capsule by mouth daily. Yes lisinopril-hydrochlorothiazide (PRINZIDE;ZESTORETIC) 20-12.5 mg per tablet Take 2 tablets by mouth daily. Yes IMMUNE GLOBULIN,GAMMA,IGG, (IMMUNE GLOBULIN, HUMAN,, IGG, IV) Inject into the vein. 2x month UNABLE TO FIND Solumedrol iv with IVIG infusions indomethacin (INDOCIN) 50 mg Capsule Take 50 mg by mouth as needed. ondansetron (ZOFRAN) 4 mg tablet Take 1 tablet by mouth as needed. Patient not taking: Reported on 01/25/2017 Allergies Allergies Allergen Reactions ??? Methotrexate Hives, Itching and Rash ??? Morphine Itching ??? Jtuivjg-Sau-Xio Reductase Inhibitors Myopathy Social History Social History Substance Use Topics ??? Smoking status: Never Smoker ??? Smokeless tobacco: Never Used ??? Alcohol use No Family History Family History Problem Relation Age of Onset ??? Colorectal Cancer Mother 59 ??? Diabetes Mother ??? Obesity Mother ??? Myocardial Infarction Father first MT at 36 ??? Coronary Artery Disease Father ??? Hypertension Father ??? Hyperlipidemia Father ??? Stomach Cancer Other uncle ??? Type 2 Diabetes Paternal Uncle ??? Obesity Sister ??? Type 2 Diabetes Sister ??? Cirrhosis Paternal Aunt Alcohol Abuse Physical Exam VITAL SIGNS: Blood pressure 139/55, pulse 66, temperature 36.8 ??C (98.2 ??F), temperature source Temporal, resp. rate 18, height 175.3 cm (5' 9.02), weight (!) 123.3 kg (271 lb 12.8 oz), SpO2 98 %. GENERAL: Bucky Acevedo is a well-appearing 56 y.o. male in no acute distress. ENT: [...] and oriented to person, place and time. Laboratory Recent Results (from the past 24 hour(s)) Comprehensive metabolic panel (non-fasting) Result Value Ref Range Glucose Lvl 345 (H) 65 - 199 mg/dL BUN 55 (H) 10 - 20 mg/dL Creatinine 2.52 (H) 0.80 - 1.50 mg/dL Sodium 140 135 - 145 mmol/L Potassium 4.3 3.5 - 5.0 mmol/L Chloride 104 98 - 107 mmol/L CO2 19 (L) 22 - 31 mmol/L Anion Gap 17 (H) 5 - 15 mmol/L Calcium 9.2 8.5 - 10.5 mg/dL Total Protein 8.2 (H) 6.1 - 8.0 gm/dL Albumin 3.6 3.2 - 5.2 gm/dL AST 22 0 - 39 unit/L ALT 16 0 - 55 unit/L Alk Phos 118 40 - 120 unit/L Total Bilirubin 0.5 0.2 - 1.3 mg/dL Estimated GFR 26 (L) >=60 Reticulocyte Count Result Value Ref Range Retic Ct % 1.8 0.7 - 2.6 % Retic Ct Abs 0.060 0.030 - 0.120 x10(6)/mcL Immature Retic% 10.8 0.0 - 15.6 % Reticulated Hgb 31.8 31.3 - 40.2 pg Vitamin B12 Result Value Ref Range Vitamin B-12 1101 (H) 207 - 974 pg/mL Folate, serum Result Value Ref Range Folate Lvl >20.0 4.8 - 24.2 ng/mL Ferritin Result Value Ref Range Ferritin 108 30 - 400 ng/mL Sedimentation rate Result Value Ref Range Sed Rate 76 (H) 0 - 15 mm/hr Iron and TIBC Result Value Ref Range Iron 62 45 - 160 mcg/dL TIBC 405 250 - 450 mcg/dL Iron Saturation 15 (L) 20 - 50 % Protein Electrophoresis, serum Result Value Ref Range Total Prot Elec 7.7 6.1 - 8.0 gm/dL Immunoglobulins, Quantitative Result Value Ref Range IgG 1745 (H) 700 - 1600 mg/dL IgA 139 70 - 400 mg/dL IgM 37 (L) 40 - 230 mg/dL Lactate Dehydrogenase Result Value Ref Range LDH 164 110 - 220 unit/L Hemogram Result Value Ref Range WBC 4.1 4.0 - 9.5 x10(3)/mcL RBC 3.45 (L) 4.58 - 5.54 x10(6)/mcL Hemoglobin 10.1 (L) 13.7 - 16.5 gm/dL Hematocrit 31.5 (L) 40.5 - 48.5 % MCV 91.3 82.9 - 93.1 fL MCH 29.3 27.5 - 32.1 pg MCHC 32.1 32.0 - 35.7 gm/dL Platelets 94 (L) 145 - 357 x10(3)/mcL RDWSD 60.0 (H) 36.0 - 45.0 fL RDWCV 18.1 (H) 11.4 - 13.8 % MPV 12.4 7.6 - 12.9 fL nRBC % Auto 0.0 % nRBC Abs Auto 0.000 0.000 - 0.000 x10(3)/mcL Differential, Automated Result Value Ref Range Neutrophils % 66.0 % Neutr Abs (ANC) 2.72 1.70 - 6.10 x10(3)/mcL Lymphocytes % 17.5 % Lymphocytes Abs 0.7 (L) 0.9 - 3.2 x10(3)/mcL Monocytes % 6.6 % Monocyte Abs 0.3 0.3 - 0.9 x10(3)/mcL Eosinophils % 8.5 % Eosinophils Abs 0.4 0.0 - 0.4 x10(3)/mcL Basophils % 1.2 % Basophils Abs 0.0 0.0 - 0.1 x10(3)/mcL Immature Gran % 0.20 % Tamara Gran Abs 0.01 0.00 - 0.04 x10(3)/mcL Assessment & Plan: Bucky Aceveod is a 56 y.o. male who presents for return consultation [...] gene myeloid mutation panel. 1. Anemia - We performed full anemia w/u on Bucky today and the only abnormality so far is iron deficiency - this despite him being on oral iron. This suggests either malabsorption or occult GI blood loss. --We have arranged for Bucky to have 4 monthly doses of Venofer 300 mg at [facility] - where he already is receiving his IVIg. Orders have been sent there and we have spoken with Sue the nurse in the infusion room and she was agreeable to the plan. He will receive his first dose next week. 2. 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 3. Fatigue - multifactorial but hopefully repletion of Bucky's iron stores will improve his anemia and his energy level. 4. Follow-up - We will arrange for Bucky to RTC in approximately 4 months so we can assess his response to venofer. Jayden Ignacio MD Section of Hematology/Oncology Page: #[phone] Office Phone: [phone] Copies MD Donato Martinez MD documented in this encounter Plan of Treatment Upcoming Encounters Date Type Specialty Care Team Description 06/19/2022 Office Visit Rheumatology Richi Blackmon MD [facility] DR RHEUMATOLOGY [place], [place] [address] (Wo rk) Scheduled Procedures Name Priority Associated Diagnoses Date/Time EGD, UPPER GI ENDOSCOPY Family hx of colon cance r COLONOSCOPY, DIAGNOSTIC Family hx of colon cance r documented as of this encounter Results (ABNORMAL) Ferritin (05/24/2017 11:43 AM EST) athologist Signature Ferritin 436 (H) 30 - 400 [facility] ng/mL [facility] Comment: Pediatric reference ranges not verified at [facility], interpret with caution. Reference ranges for females greater kayleigh n 50 years of age approach values for men, i.e., 30-400 ng/mL. Specimen Anatomical Collection Method Collection Time Receive d Time (Source) Location / / Volume Laterality Blood specimen 05/24/2017 11:43 7 (specimen) AM EST 11:54 AM EST Resulting Agency Comment Spec In Lab Jayden Ignacio MD CHEMISTRY ORDERABLES Performing Organization Address City/[facility]/ZIP Code Phon e Number [address] (ABNORMAL) Iron and TIBC (05/24/2017 11:43 AM EST) athologist Signature Iron 51 45 - 160 [facility] TIBC 312 250 - 450 [facility] m[facility]/dL [facility] Iron Saturation 16 (L) 20 - 50 % [facility] Specimen Anatomical Collection Method Collection Time Receive d Time (Source) Location / / Volume Laterality Blood specimen 05/24/2017 11:43 7 (specimen) AM EST 11:54 AM EST Resulting Agency Comment Spec In Lab Jayden Ignacio MD CHEMISTRY ORDERABLES Performing Organization Address City/[facility]/[place] [address] (ABNORMAL) Sedimentation rate (05/24/2017 11:43 AM EST) athologist Signature Sed Rate 91 (H) 0 - 15 [facility] mm/hr [facility] Specimen Anatomical Collection Method Collection Time Receive d Time (Source) Location / / Volume Laterality Blood specimen 05/24/2017 11:43 7 (specimen) AM EST 11:54 AM EST Resulting Agency Comment Spec In Lab Jayden Ignacio MD HEMATOLOGY ORDERABLES Performing Organization Address City/[facility]/[place] [address] (ABNORMAL) Comprehensive metabolic panel (non-fasting) (05/24/2017 11:43 AM EST) athologist Signature Glucose Lvl 308 (H) 65 - 199 [facility] mg/dL [facility] Comment: Diabetes: >=200 mg/dL plus symp toms BUN 87 (H) 10 - 20 mg/dL [facility] Creatinine 2.18 (H) 0.80 - 1.50 mg/dL [facility] Sodium 135 135 - 145 mmol/L [facility] Potassium 3.6 3.5 - 5.0 mmol/L [facility] Comment: Please note: ??Patients with WBC >100,00 0 may have falsely elevated Potassium levels. ??For accurate Potassium quantif ication in these patients send serum separator tube (gold top) for subsequent determinations. ??Contact the Clinical Chemistry Laboratory if there are any qu estions. Chloride 101 98 - 107 mmol/L [facility] CO2 20 (L) 22 - 31 mmol/L [facility] Anion Gap 14 5 - 15 mmol/L [facility] Calcium 8.6 8.5 - 10.5 mg/dL [facility] Total Protein 9.4 (H) 6.1 - 8.0 gm/dL [facility] Albumin 3.2 3.2 - 5.2 gm/dL [facility] AST 23 0 - 39 unit/L [facility] ALT 24 0 - 55 unit/L [facility] Alk Phos 103 40 - 120 unit/L [facility] Total Bilirubin 0.4 0.2 - 1.3 mg/dL [facility] Estimated GFR 31 (L) >=60 [facility] Comment: The reported eGFR should be multiplied b y 1.2 for patients. The MDRD is not an appropriate measure o f renal function for patients with body mass extremes or in patients with acute kidney failure. http://[employer]otsAlive/DHnkdep http://[employer]/DHMCnkf Specimen Anatomical Collection Method Collection Time Receive d Time (Source) Location / / Volume Laterality Blood specimen 05/24/2017 11:43 7 (specimen) AM EST 11:54 AM EST Resulting Agency Comment Spec In Lab Jayden Ignacio MD CHEMISTRY ORDERABLES Performing Organization Address City/[facility]/ZIP Code Phon e Number [address] (ABNORMAL) Free Light Chains, Serum (01/25/2017 1:45 PM EDT) Analysis Performed At Patho logist Time Signature [place] Free 3.89 (H) 0.88 - [facility] Light Chains 3.69 mg/dL [facility] Comment: Please be advised that following a multi -institution study the reference interval for Serum Free Light Chains was updated January 09, 2017. Lambda Free Light Chains 2.39 (H) 0.91 - 2.03 mg/dL [facility] Comment: Please be advised that following a multi -institution study the reference interval for Serum Free Light Chains was updated January 09, 2017. Dodson/Lambda Free Light Chain 1.6276 0.7200 - 2.0700 [facility] LABORATORY Comment: Please be advised that following a multi -institution study the reference interval for Serum Free Light Chains was updated January 09, 2017. Specimen Anatomical Collection Method Collection Time Receive d Time (Source) Location / / Volume Laterality Blood specimen 01/25/2017 1:45 PM 017 2:01 (specimen) EDT PM EDT Resulting Agency Comment Spec In Lab Jayden Ignacio MD CHEMISTRY ORDERABLES Performing Organization Address City/[facility]/ZIP Code Phon e Number [address] Lactate Dehydrogenase (01/25/2017 1:45 PM EDT) P athologist Signature LDH 164 110 - 220 [facility] unit/L [facility] Specimen Anatomical Collection Method Collection Time Receive d Time (Source) Location / / Volume Laterality Blood specimen 01/25/2017 1:45 PM 017 2:01 (specimen) EDT PM EDT Resulting Agency Comment Spec In Lab Jayden Ignacio MD CHEMISTRY ORDERABLES Performing Organization Address City/State/ZIP Code Phon e Number [address] (ABNORMAL) Immunoglobulins, Quantitative (01/25/2017 1:45 PM EDT) P athologist Signature IgG 1,745 (H) 700 - [place] 1,600 [facility] mg/dL [facility] IgA 139 70 - 400 [facility] [place]UV[place] mg/dL [facility] IgM 37 (L) 40 - 230 [facility] [place] mg/dL [facility] Specimen Anatomical Collection Method Collection Time Receive d Time (Source) Location / / Volume Laterality Blood specimen 01/25/2017 1:45 PM 017 2:01 (specimen) EDT PM EDT Resulting Agency Comment Spec In Lab Jayden Ignacio MD CHEMISTRY ORDERABLES Performing Organization Address City/[facility]/ZIP Code Phon e Number [address] (ABNORMAL) Protein Electrophoresis, serum (01/25/2017 1:45 PM EDT) Patholo gist Method Time Signature Total Prot 7.7 6.1 - 8.0 [place] Elec gm/dL [facility] Albumin Elect 4.10 3.60 - [place] 6.00 [facility] LABORATORY Alpha1-Globul 0.25 0.10 - [place] in [address].30 [facility]/dL [facility] Alpha2-Globul 0.83 0.40 - [place] in [address].90 [facility]/dL [facility] Beta Globulin 0.87 0.50 - [place] 1.00 [facility]/dL [facility] Gamma 1.65 (H) 0.50 - [place] Globulin 1.30 [facility]/dL [facility] M1 Band None [facility] Detected [facility] Specimen Anatomical Collection Method Collection Time Receive d Time (Source) Location / / Volume Laterality Blood specimen 01/25/2017 1:45 PM 017 2:01 (specimen) EDT PM EDT Narrative This result has an attachment that is no t available. Resulting Agency Comment Spec In Lab Jayden Ignacio MD CHEMISTRY ORDERABLES Performing Organization Address City/State/[place] [address] (ABNORMAL) Iron and TIBC (01/25/2017 1:45 PM EDT) P athologist Signature Iron 62 45 - 160 [facility] mcg/dL [facility] TIBC 405 250 - 450 [facility] mcg/dL [facility] Iron Saturation 15 (L) 20 - 50 % [facility] Specimen Anatomical Collection Method Collection Time Receive d Time (Source) Location / / Volume Laterality Blood specimen 01/25/2017 1:45 PM 017 2:01 (specimen) EDT PM EDT Resulting Agency Comment Spec In Lab Jayden Ignacio MD CHEMISTRY ORDERABLES Performing Organization Address City/[facility]/[place] [address] (ABNORMAL) Sedimentation rate (01/25/2017 1:45 PM EDT) athologist Signature Sed Rate 76 (H) 0 - 15 [facility] mm/hr [facility] Specimen Anatomical Collection Method Collection Time Receive d Time (Source) Location / / Volume Laterality Blood specimen 01/25/2017 1:45 PM 017 2:01 (specimen) EDT PM EDT Resulting Agency Comment Spec In Lab Jayden Ignacio MD HEMATOLOGY ORDERABLES Performing Organization Address City/[facility]/[place] [address] Ferritin (01/25/2017 1:45 PM EDT) athologist Signature Ferritin 108 30 - 400 [facility] ng/mL [facility] Comment: Pediatric reference ranges not verified at [facility], interpret with caution. Reference ranges for females greater kayleigh n 50 years of age approach values for men, i.e., 30-400 ng/mL. Specimen Anatomical Collection Method Collection Time Receive d Time (Source) Location / / Volume Laterality Blood specimen 01/25/2017 1:45 PM 08/18/2 017 2:01 (specimen) EDT PM EDT Resulting Agency Comment Spec In Lab Jayden Ignacio MD CHEMISTRY ORDERABLES Performing Organization Address City/[facility]/ZIP Code Phon e Number [address] Folate, serum (01/25/2017 1:45 PM EDT) P athologist Signature Folate Lvl >20.0 4.8 - 24.2 [facility] ng/mL [facility] Specimen Anatomical Collection Method Collection Time Receive d Time (Source) Location / / Volume Laterality Blood specimen 01/25/2017 1:45 PM 017 2:01 (specimen) EDT PM EDT Resulting Agency Comment Spec In Lab Jayden Ignacio MD CHEMISTRY ORDERABLES Performing Organization Address City/[facility]/ZIP Code Phon e Number [address] (ABNORMAL) Vitamin B12 (01/25/2017 1:45 PM EDT) Analysis Performed At Path logist Time Signature Vitamin B-12 1,101 (H) 207 - 974 [facility] pg/mL [facility] Specimen Anatomical Collection Method Collection Time Receive d Time (Source) Location / / Volume Laterality Blood specimen 01/25/2017 1:45 PM 017 2:01 (specimen) EDT PM EDT Resulting Agency Comment Spec In Lab Jayden Ignacio MD CHEMISTRY ORDERABLES Performing Organization Address City/[facility]/ZIP Code Phon e Number [address] Reticulocyte Count (01/25/2017 1:45 PM EDT) P athologist Signature Retic Ct % 1.8 0.7 - 2.6 [facility] LABORATORY Retic Ct Abs 0.060 0.030 - [facility] 0.120 [facility] x10(6)/[facility] LABORATORY Immature Retic% 10.8 0.0 - 15.6 [facility] K % [facility] Reticulated Hgb 31.8 31.3 - [facility] 40.2 pg [facility] Specimen Anatomical Collection Method Collection Time Receive d Time (Source) Location / / Volume Laterality Blood specimen 01/25/2017 1:45 PM 017 2:01 (specimen) EDT PM EDT Resulting Agency Comment Spec In Lab Jayden Ignacio MD HEMATOLOGY ORDERABLES Performing Organization Address City/State/[place] [address] (ABNORMAL) Comprehensive metabolic panel (non-fasting) (01/25/2017 1:45 PM EDT) athologist Signature Glucose Lvl 345 (H) 65 - 199 [facility] mg/dL [facility] Comment: Diabetes: >=200 mg/dL plus symp toms BUN 55 (H) 10 - 20 mg/dL [facility] Creatinine 2.52 (H) 0.80 - 1.50 mg/dL [facility] Comment: Please note that the pediatric reference intervals supplied above were not validated at [facility]. Results from pediatri c patients should be interpreted in conjunction to the patient's age, height and muscle mass. Sodium 140 135 - 145 mmol/L [facility] Potassium 4.3 3.5 - 5.0 mmol/L [facility] Comment: Please note: ??Patients with WBC >100,00 0 may have falsely elevated Potassium levels. ??For accurate Potassium quantif ication in these patients send serum separator tube (gold top) for subsequent determinations. ??Contact the Clinical Chemistry Laboratory if there are any qu estions. Chloride 104 98 - 107 mmol/L [facility] CO2 19 (L) 22 - 31 mmol/L [facility] Anion Gap 17 (H) 5 - 15 mmol/L [facility] Calcium 9.2 8.5 - 10.5 mg/dL [facility] Total Protein 8.2 (H) 6.1 - 8.0 gm/dL [facility] [facility] Albumin 3.6 3.2 - 5.2 gm/dL [facility] AST 22 0 - 39 unit/L [facility] ALT 16 0 - 55 unit/L [facility] Alk Phos 118 40 - 120 unit/L [facility] Total Bilirubin 0.5 0.2 - 1.3 mg/dL [facility] Estimated GFR 26 (L) >=60 [facility] Comment: This estimated GFR (eGFR) value was calc ulated using the MDRD equation which has been validated on patients between t he ages of 18 and 70. The MDRD should not be used to assess kidney function in patients < 18 years of age or in patients with extremes of body mass, or in patients with acute kidney failure. This value should be multiplied by 1.2 f or patients. For further information please copy and past e the following links into your internet browser. http://[employer]/DHnkdep http://[employer]/DHMCnkf Specimen Anatomical Collection Method Collection Time Receive d Time (Source) Location / / Volume Laterality Blood specimen 01/25/2017 1:45 PM 017 2:01 (specimen) EDT PM EDT Resulting Agency Comment Spec In Lab Jayden Ignacio MD CHEMISTRY ORDERABLES Performing Organization Address City/State/[place] [address] documented in this encounter Visit Diagnoses Diagnosis Anemia, unspecified type Thrombocytopenia Thrombocytopenia, unspecified Chronic fatigue Other malaise and fatigue documented in this encounter Care Teams Artist Consultant Relationship Specialty Start Date End Date Jazmine Baer MD PCP - General 11/07/10 [address] [place] [address] documented as of this encounter
--- OUTSIDE RECORDS SUMMARY | 2022-04-11 10:51 | XMS_ITS | Encounter Summary ---
:1960 Author Organization [facility] [place] [address] Care Team Providers Name Role Phone Jazmine Baer MD Primary Care Provider Reason for Visit Reason Onset Date Comments Other 08/06/2017 Medication Question Encounter Details Date Type Department Care Team Description 08/06/2017 Telephone Rheumatology at [facility] Shanthi Pham, Other (Medication [facility] Hilda shafer RN Question) [place] [address] Social History Tobacco Use Types Packs/Day Years Used Date Never Smoker Smokeless Tobacco: Never Used Alcohol Use Standard Drinks/Week Comments No 0 (1 standard drink = 0.6 oz pure alcoho l) Sex Assigned at Date Recorded Not on file documented as of this encounter Miscellaneous Notes Telephone Encounter - Shanthi Pham RN - 08/06/2017 12:47 PM EST Call placed to Bucky to ask if he has ever had a reaction to Privigen as [facility] is changing Gamunex over to Privigen. I spoke with and she will have Bucky RTC to nurse to advise. Bucky calls back and states he has never received Privigen and agrees to go ahead with the change. documented in this encounter Plan of Treatment Upcoming Encounters Date Type Specialty Care Team Description 06/19/2022 Office Visit Rheumatology Richi Blackmon MD [facility] ER DR RHEUMATOLOGY [place], [place] [address] (Wo rk) Scheduled Procedures Name Priority Associated Diagnoses Date/Time EGD, UPPER GI ENDOSCOPY Family hx of colon cance r COLONOSCOPY, DIAGNOSTIC Family hx of colon cance r documented as of this encounter Visit Diagnoses Not on filedocumented in this encounter Care Teams General Agent Relationship Specialty Start Date End Date Jazmine Baer MD PCP - General 11/07/10 [address] [place] [address] documented as of this encounter
--- OUTSIDE RECORDS SUMMARY | 2022-04-11 10:51 | XMS_ITS | Encounter Summary ---
:1960 Author Organization [place] [address] Care Team Providers Name Role Phone Jazmine Baer MD Primary Care Provider Encounter Details Date Type Department Care Team Description 11/12/2016 Hospital Encounter Gastroenterology at [facility] [place] [address] [place] [address] GASTROENTEROLOGY [place] [address] Social History Tobacco Use Types Packs/Day Years Used Date Never Smoker Smokeless Tobacco: Never Used Alcohol Use Standard Drinks/Week Comments No 0 (1 standard drink = 0.6 oz pure alcoho l) Sex Assigned at Date Recorded Not on file documented as of this encounter Last Filed Vital Signs Vital Sign Reading Time Taken Comments Blood Pressure 145/69 11/12/2016 9:00 AM EDT Pulse 64 11/12/2016 7:10 AM EDT Temperature - - Respiratory Rate 16 11/12/2016 9:00 AM EDT Oxygen Saturation 98% 11/12/2016 9:00 AM EDT Inhaled Oxygen Concentration - - Weight 122.5 kg (270 lb) 11/12/2016 7:10 AM EDT Height 175.3 cm (5' 9) 11/12/2016 7:10 AM EDT Body Mass Index 39.87 11/12/2016 7:10 AM EDT documented in this encounter Discharge Instructions AttachmentsThe following attachments cannot be sent through Care Everywhere. COLONOSCOPY: POST-OP (BULGARIAN)documented in this encounter Medications at Time of Discharge Medication Sig Dispensed Refills Start Date End Date ONETOUCH ULTRA TEST 1 each by Other route 3 3 Strip times daily. insulin glargine Inject 40 Units 0 (Lantus) 100 unit/mL subcutaneously nightly. (3 mL) pen furosemide (LASIX) 20 Take 1 tablet by mouth 30 tablet 12 mg TabletIndications: daily. Myopathy multivitamin Capsule Take 1 capsule by mouth 0 daily. allopurinol TAKE ONE TABLET BY 0 11/01/201604/11 (ZYLOPRIM) 300 mg MOUTH EVERY DAY Tablet allopurinol Take 200 mg by mouth 1 08/01/201606/2016 (ZYLOPRIM) 100 mg daily. Tablet terazosin (HYTRIN) 5 Take 1 capsule by [...] per tablet documented as of this encounter H&P Notes Rhiannon Headley MD - 11/12/2016 7:42 AM EDT Gastroenterology and Hepatology Pre-Procedure History and Physical Exam Procedure: Colonoscopy: Indication: iron def anemia Patient Active Problem List Diagnosis Code ??? Myopathy G72.9 ??? Nausea and vomiting R11.2 ??? Diabetes mellitus, type II E11.9 ??? Hepatosplenomegaly R16.2 ??? Durand's esophagus K22.70 ??? Nonalcoholic steatohepatitis (HORTON) K75.81 ??? Anemia D64.9 ??? Skin rash R21 ??? Imbalance R26.89 ??? Myositis M60.9 ??? Gout M10.9 EXAM: HEENT: Airway examined, oropharynx clear Mallampati Score: II (soft palate, uvula, fauces visible) LUNGS: Clear to auscultation HEART: Regular rate and rhythm, normal S1, S2 ABDOMEN: Normal bowel sounds, soft, non tender, non distended, A/P Proceed with the planned endoscopic procedure. ASA 3 - Patient with moderate systemic disease with functional limitations Sedation Plan: anesthesia Risks and benefits of the procedure explained to the patient. Consent signed. documented in this encounter Plan of Treatment Upcoming Encounters Date Type Specialty Care Team Description 06/19/2022 Office Visit Rheumatology iRchi Blackmon MD [facility] ER DR RHEUMATOLOGY [place] [id number] (Wo rk) Scheduled Procedures Name Priority Associated Diagnoses Date/Time EGD, UPPER GI ENDOSCOPY Family hx of colon cance r COLONOSCOPY, DIAGNOSTIC Family hx of colon cance r documented as of this encounter Procedures Procedure Name Priority Date/Time Associated Comments Diagnosis COLONOSCOPY, 11/12/2016 8:09 AM Durand's esophagus DIAGNOSTIC EDT COLONOSCOPY Routine 11/12/2016 8:01 AM Results f or this EDT procedure are i n the results section. documented in this encounter Results COLONOSCOPY (11/12/2016 8:01 AM EDT) [facility] Method Time Signature COLONOSCOPY [facility] Endoscopy Procedure Date: 11/12/2016 8:01 AM ? Patient Name: Bucky Acevedo ? Date of : 1960 ? Age: 56 ? Order #: [id number] ? Instrument Name: [id number] ? Procedure: ? Colonoscopy Indications: ? Iron deficiency anemia Providers: ? Rhiannon Headley MD, Jayden Delaney ? Yvette Marcos MD: ?Jazmine Baer MD Medicines: ? Propofol per Anesthesia Complications: ? No immediate complications. Procedure: ? Pre-Anesthesia Assessment: ? - Prior to the procedure, a H istory ? and Physical was performed, a nd ? patient medications, allergie s and ? sensitivities were reviewed. The ? patient's tolerance of previo us ? anesthesia was reviewed. ? - The risks and benefits of t he ? procedure and the sedation op tions ? and risks were discussed with the ? patient. All questions were a nswered ? and informed consent was obta ined. ? The procedure, indications, b enefits, ? risks and alternatives were e xplained ? to the patient. Specifically ? discussed were potential ? complications including, but not ? limited to, bleeding, perfora tion, ? infection, missing a cancer, and ? adverse medication reactions. The ? patient was placed in the lef t ? lateral decubitus position, a nd a ? digital rectal exam was perfo rmed. ? The Colonoscope was inserted in the ? anus and under direct visuali zation, ? advanced to the terminal ileu m. ? Careful inspection was made a s the ? colonoscope was withdrawn. Th e ? colonoscopy was performed wit elijah ? difficulty. The patient isabella ated the ? procedure well. The quality o f the ? bowel preparation was excelle nt. ? Findings: ? The ileum and colon (entire examined portion) ? appeared normal. ? Moderate Sedation: ? Not applicable - See Anesthesia documentation Impression: ?- The terminal ileum and entire ? examined colon are normal. ? - No specimens collected. Recommendation: ?- Repeat colonoscopy in 10 years for ? screening purposes. ? Attending Participation: ? I personally performed the entire procedure. ? I was present during the intraservice time as ? documented by the sedation RN. ? Rhiannon Headley MD 11/12/2016 8:30:53 AM This report has been signed electronically. Number of Addenda: 0 Note Initiated On: 11/12/2016 8:01 AM Specimen (Source) Anatomical Collection Method Collection Time Re ceived Time Location / / Volume Laterality 11/12/2016 8:01 AM EDT Jazmine Baer MD GENERAL SURGICAL ORDERABLES Performing Organization Address City/State/ZIP Code Phon e Number [employer] documented in this encounter Visit Diagnoses Not on filedocumented in this encounter Administered Medications Inactive Administered Medications - up to 3 most recent administrations Medication Order MAR Action Action Date Dose Rate Site heparin, porcine 100 unit/mL Given 11/12/2016 9:06 AM EDT 500 Un its flush 500 Units 500 Units (5 mL), Intravenous, DAILY PRN, 1 dose, Starting on Sat11/12/16 at 0717, Until Sat11/12/16 at 0906, Line Care, Terminal Flush for de-accessing of Implantable Port, Routine lactated Ringers infusion 100 mL/hr, Intravenous, CONTINUOUS, Starting on 10/24 at 0730, Until Sat11/12/16 at 1123 sodium chloride 0.9 % flush 10 mL 10 mL, Intravenous, DAILY PRN, Starting on Sat11/12/16 at 0717, Until 11/12/16 at 1123, For use when accessing Implantable Port, Routine documented in this encounter Active and Recently Administered Medications Times are shown in EDT. Continuous Medication Order 11/10/2016 11/11/2016 11/12/2016 lactated Ringers infusion 0730 ( Due) 100 mL/hr, at 100 mL/hr, Intravenous, CO NTINUOUS, Starting 11/12/16 at 0730, Until Sat11/12/16 at 1123 PRN Medication Order 11/10/2016 11/11/2016 11/12/2016 heparin, porcine 100 unit/mL flush 500 Units (COMPLETED) 0906 (Given - Provider: Deja Leach RN) 500 Units (5 mL), Intravenous, DAILY PRN , 1 dose, Starting Sat11/12/16 at 0717, Until Discontinued, Line Care, Terminal Flush for de-accessing of Implantable Port, Routine sodium chloride 0.9 % flush 10 mL 10 mL, Intravenous, DAILY PRN, Starting Sat11/12/16 at 0717, Until Sat11/12/16 at 1123, For use when accessing Implantable Port, Routine documented in this encounter Care Teams Cracking Machine Operator Relationship Specialty Start Date End Date Jazmine Baer MD PCP - General 11/07/10 [address] [place] [address] documented as of this encounter
--- OUTSIDE RECORDS SUMMARY | 2022-04-11 10:51 | XMS_ITS | Encounter Summary ---
:1960 Author Organization [facility] [place] [address] Care Team Providers Name Role Phone Jazmine Baer MD Primary Care Provider Reason for Visit Reason Comments Injections Procrit Encounter Details Date Type Department Care Team Description 07/19/2017 Infusion Hematology Oncology at [facility], unspecified type [address] [phone] Social History Tobacco Use Types Packs/Day Years Used Date Never Smoker Smokeless Tobacco: Never Used Alcohol Use Standard Drinks/Week Comments No 0 (1 standard drink = 0.6 oz pure alcoho l) Sex Assigned at Date Recorded Not on file documented as of this encounter Progress Notes Ellen Ascencio RN - 07/19/2017 1:00 PM EST Infusion Note Diagnosis:Anemia Treatment: [...] Blackmon MD [facility] RHEUMATOLOGY [place], [place] [address] (Wo rk) Scheduled Procedures Name [...] Date Dose Rate Site epoetin matt Given 07/19/2017 1:29 PM 20,000 Units Ri ght Arm (EPOGEN;PROCRIT) injection EST 20,000 Units 20,000 Units, Intravenous, ONCE, 1 dose, On Sat07/19/17 at 1300, Repeat CBC every other week., Routine, What is the indication of use? 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
--- OUTSIDE RECORDS SUMMARY | 2022-04-11 10:51 | XMS_ITS | Encounter Summary ---
:1960 Author Organization [facility] [place] [address] Care Team Providers Name Role Phone Jazmine Baer MD Primary Care Provider Reason for Visit Reason Comments Injections procrit injection Encounter Details Date Type Department Care Team Description 07/04/2017 Infusion Hematology Oncology at [facility], unspecified type [address] [phone] Social History Tobacco Use Types Packs/Day Years Used Date Never Smoker Smokeless Tobacco: Never Used Alcohol Use Standard Drinks/Week Comments No 0 (1 standard drink = 0.6 oz pure alcoho l) Sex Assigned at Date Recorded Not on file documented as of this encounter Last Filed Vital Signs Vital Sign Reading Time Taken Comments Blood Pressure - - Pulse 65 07/04/2017 8:17 AM EST Temperature 36.4 ??C (97.5 ??F) 07/04/2017 8:17 AM EST Respiratory Rate - - Oxygen Saturation 100% 07/04/2017 8:17 AM EST Inhaled Oxygen Concentration - - Weight - - Height - - Body Mass Index - - documented in this encounter Progress Notes Anjali Barriga RN - 07/04/2017 8:30 AM EST Infusion Note Diagnosis:Anemia Treatment: Procrit Injection Labs: H/H 10.4/32.5 Procrit 20,000 mcg injected in left arm. Patient aware to call clinic with any questions or concerns. Plan: Return to clinic weekly as scheduled with every other week labs. documented in this encounter Plan of Treatment Upcoming Encounters Date Type Specialty Care Team Description 06/19/2022 Office Visit Rheumatology Richi Blackmon MD [facility] DR RHEUMATOLOGY [place], [place] [address] (Wo rk) Scheduled Procedures Name [...] Date Dose Rate Site epoetin matt Given 07/04/2017 8:38 AM 20,000 Units Ri ght Arm (EPOGEN;PROCRIT) injection EST 20,000 Units 20,000 Units, Intravenous, ONCE, 1 dose, On Raiza 07/04/17 at 0900, Repeat CBC every other week., Routine, What is the indication of use? 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
--- OUTSIDE RECORDS SUMMARY | 2022-04-11 10:51 | XMS_ITS | Encounter Summary ---
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 Akash Doll PA [facility] Rad Mri Procedures MRI Abdomen wwo Contrast (Generic) [facility] [place] [address] [place] [address] Referral ID Status Reason Start Date Expiration Date Visits V isits Requested Authorized [id number] Closed Specialty 04/11/2017 04/11/2018 1 1 Service Requested Reason for Visit Reason Comments Follow-up Encounter Details Date Type Department Care Team Description 04/11/2017 Office Visit Gastroenterology at [facility] Akash Doll 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 (Primary Dx); [facility] LUDA Alston Anemia of chronic disease; [place] [address] [facility] Iron deficiency anemia, unsp ecified iron deficiency anemia type; [phone]; [place], [place] Type 2 diabetes mellitus with complication, with long-term current use of insulin [id number] Social History Tobacco Use Types Packs/Day Years Used Date Never Smoker Smokeless Tobacco: Never Used Alcohol Use Standard Drinks/Week Comments No 0 (1 standard drink = 0.6 oz pure alcoho l) Sex Assigned at Date Recorded Not on file documented as of this encounter Last Filed Vital Signs Vital Sign Reading Time Taken Comments Blood Pressure 129/61 04/11/2017 10:42 AM EDT Pulse 68 04/11/2017 10:42 AM EDT Temperature - - Respiratory Rate - - Oxygen Saturation - - Inhaled Oxygen Concentration - - Weight 118.8 kg (262 lb) 04/11/2017 10:42 AM EDT Height 175.3 cm (5' 9) 04/11/2017 10:42 AM EDT Body Mass Index 38.69 04/11/2017 10:42 AM EDT documented in this encounter Progress Notes Akash Doll PA - 04/11/2017 11:00 AM EDT Gastroenterology and Hepatology Follow Up Note Patient: Bucky Acevedo : 1960 Provider: Akash Doll PA-C Problem List: Cirrhosis- most likely due to HOTRON. ?? Metabolic risk factors: HTN, T2DM, Obese, dyslipidemia. No liver biopsy ? 1st presentation- Elevated liver enzymes since 2009 when he was diagnosed with myositis ?? Complicated with transient HE minimal improvement with RIfaximin (01/2014) ?? No ascites or varices (Last EGD 08/02/16) ? 2. Liver Hemangioma 1.6cm ?? Stable, slightly smaller on 04/11/17 3. DM2 4. HTN 5. Hypertension ?? 6. Myositis- statin induced myoapthy ?-?? Jun 2014-received IVIg x 2days every month and Solumedrol - Continues IVIG 2 days monthly, solumedrol one day monthly @ [facility] - Followed by Drs. Prieto and Rosibel 7. 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 Gout 10. Iron deficiency anemia Negative capsule study Jul 2016 Negative repeat colo on 11/12/16 Seen by hematology 01/2017, thoughts either due to malabsorption or GI loss, monthly Venofer @ [facility] x 4 months 11. Renal insufficiency Creatinine 1.42 on 09/19/16 Creatinine 2.52 on 01/25/17 Slightly elevated EPO level 01/08/17 Preventative Health: 1. HAV/HBV: (+)/(-)- received HBV vaccine 2. Colonoscopy - 07/21/13 hyperplastic polyp. Repeat 10/2016 for LONNIE, negative, repeat due in 2026. 3. Portal HTN: EGD 08/02/16 no varices, no gastropathy, repeat due 2008 4. HCC Surveillance: US 04/11/17 stable appearing cirrhotic liver, no new lesions 5. Pneumonia vaccine 6. Influenza vaccine Interval History: Mr. Acevedo returns today for follow-up of his HORTON cirrhosis. He states that things have been goingfairly well in regard to his myositis care. He has Gammaguard infusions once monthly with solumedrol. He is now also receiving iron infusions after seeing Dr. Ignacio in hematology for iron deficiency anemia. No GI source has been found to date. He states that his fatigue is a little better now and he has been able to walk more. He has lost some weight because of his increased activity level and he has been watching his diet more closely. Dr. Baer just recently increased his glipizide (HA1C today is 7.8). After reviewing his elevated creatinine levels today he is unaware of any history of kidney problemsand states he doesn't believe he's seen a kidney specialist. He is seeing Dr. Gleason later today in follow-up of his myositis care. MEDICATIONS Current Outpatient Prescriptions Medication Sig Dispense Refill ??? [email or web address] ULTRA TEST Strip TEST DIRECTED THREE TIMES A DAY DIRECTED 3 ??? IMMUNE GLOBULIN,GAMMA,IGG, (IMMUNE GLOBULIN, HUMAN,, IGG, IV) Inject into the vein. 2x month ??? UNABLE TO FIND Solumedrol iv with IVIG infusions ??? terazosin (HYTRIN) 5 mg Capsule Take 1 capsule by mouth nightly. 3 ??? glipiZIDE (GLUCOTROL XL) 5 mg Tablet Extended Rel 24 hr Take 10 mg by mouth daily. 3 ??? insulin lispro (HUMALOG) Solution Inject subcutaneously 3 times daily (before meals). Indications: SLIDING SCALE ??? insulin glargine (LANTUS SOLOSTAR) Insulin Pen Inject subcutaneously 2 times daily. Indications:25 units in AM, 80 units in PM ??? ferrous sulfate 324 mg (65 mg iron) Tablet, Delayed Release (E.C.) Take 324 mg by mouth every other day. ??? indomethacin (INDOCIN) 50 mg Capsule Take 50 mg by mouth as needed. ??? atenolol (TENORMIN) 50 mg Tablet Take 50 mg by mouth daily. ??? furosemide (LASIX) 20 mg Tablet Take 1 tablet by mouth daily. (Patient taking differently: Take 20 mg by mouth 2 times daily.) 30 tablet 12 ??? multivitamin Capsule Take 1 capsule by mouth daily. ??? omeprazole (PRILOSEC) 40 mg capsule Take 1 capsule by mouth daily. (Patient taking differently: Take 40 mg by mouth daily. Take every other day) 90 capsule 3 ??? ondansetron (ZOFRAN) 4 mg tablet Take 1 tablet by mouth as needed. 20 tablet 3 ??? lisinopril-hydrochlorothiazide (PRINZIDE;ZESTORETIC) 20-12.5 mg per tablet Take 2 tablets by mouth daily. ??? glipiZIDE (GLUCOTROL XL) 10 mg Tablet Extended Rel 24 hr ??? allopurinol (ZYLOPRIM) 100 mg Tablet ??? HUMALOG KWIKPEN 100 unit/mL Insulin Pen INJECT 40 UNITS SUBCUTANEOUSLY BEFORE MEALS 3 No current facility-administered medications for this visit. PHYSICAL EXAM Vitals: 04/11/17 1042 BP: 129/61 Pulse: 68 Weight: (!) 118.8 kg (262 lb) Height: 175.3 cm (5' 9) Body mass index is 38.69 kg/(m^2). Constitutional: Well appearing, appropriate, no acute distress Skin: No cyanosis, no palmar erythema, no jaundice Head: Normocephalic, sclerae anicteric Abdomen: Obese, nondistended, nontender Neurologic: Alert and oriented x 3, no asterixis or tremor Extremities: No edema RESULTS Recent Results (from the past 24 hour(s)) Hemoglobin A1c Result Value Ref Range Hemoglobin A1C 7.8 (H) 4.3 - 5.6 % Est Avg Gluc 177 mg/dL Comprehensive metabolic panel (non-fasting) Result Value Ref Range Glucose Lvl 232 (H) 65 - 199 mg/dL BUN 46 (H) 10 - 20 mg/dL Creatinine 1.67 (H) 0.80 - 1.50 mg/dL Sodium 136 135 - 145 mmol/L Potassium 4.4 3.5 - 5.0 mmol/L Chloride 99 98 - 107 mmol/L CO2 21 (L) 22 - 31 mmol/L Anion Gap 16 (H) 5 - 15 mmol/L Calcium 9.5 8.5 - 10.5 mg/dL Total Protein 8.7 (H) 6.1 - 8.0 gm/dL Albumin 3.7 3.2 - 5.2 gm/dL AST 22 0 - 39 unit/L ALT 21 0 - 55 unit/L Alk Phos 117 40 - 120 unit/L Total Bilirubin 0.5 0.2 - 1.3 mg/dL Estimated GFR 42 (L) >=60 Prothrombin Time Result Value Ref Range PT 13.9 11.8 - 14.0 sec INR 1.1 0.9 - 1.1 MELD-Na = 13 CTP Class A (5) Imaging: US abdomen limited today: Comparison 03/06/2016. This study is limited due to patientbody habitus.1. There is stable to slightly smaller echogenic lesion hemangioma right lobeof the liver. No new liver masses are identified.2. Liver remains enlarged, mildly echogenic, and mildly coarsened inechotexture.3. Known pancreatic cyst is not identified on today's study.4. Known right renal cysts are not identified on today's study. Assessment and Plan: 57 y.o. male with cirrhosis due to HORTON with risk factors of obesity, diabetes, and dysplipidemia. Child's class A (5) and MELD-Na today is calculated at 13 although this is mostly due to his elevated creatinine level (1.67). It does not appear that he has been seen by nephrology in the past, unclear as to the etiology of his renal insufficiency although may be due to his diabetes or myositis. Creatinine is better than it was in January (2.52). This may also be partly accountable for his chronic anemia; he had a slightly elevated epo level in January. He may benefit from referral to nephrology for further evaluation of this. No GI etiology has been found to date with capsule endoscopy in July this year and colonoscopy last November. His liver disease remains well compensated in that he has no ascites, no encephalopathy, no varices,and albumin today is back to normal level (was previously low). No signs on exam concerning for decompensated disease. We discussed management of metabolic risk factors to treat his chronic liver diseas e. Diabetes needs further optimization, continue to monitor with PCP. Recommendations: 1) HORTON - Continue to treat diabetes - recent increase in glipizide may help, previously intolerant to metformin (he reported worse glucose levels and blisters). He may also benefit from laraglutide, which hasbeen shown in recent studies to be beneficial for patients with diabetes and HORTON, especially for help with weight loss. - Continue weight loss on low carb diet and increase activity level - he has lost approximately 15 pounds since his last visit, which is excellent. - [place] 3 fatty acids for hypertriglyceridemia in place of statin therapy 2) Cirrhosis - No lesions on US today. Repeat MRI in 6 mos for HCC screening due to poor visibility on today's ultrasound. Previous MRI in September was clear of new suspicious lesions. - EGD due in 2018 for repeat varices screening and follow-up of Durand's. 3) Iron deficiency anemia - Continue care with hematology, iron infusions - ? Due to chronic renal disease, consider nephrology referral - No CBC ordered with today's labs, requested add-on to HA1C tube in lab, not yet resulted. 4) Statin-induced myositis - Discuss possibility of decreasing solumedrol with rheumatology, as long-term steroids may contribute to progression of hepatic steatosis over time. 28 of this 30 minute visit was in [id number] discussion regarding disease, prognosis and treatment. [facility] Section of Gastroenterology and [place] [address] Cc: Jazmine Baer MD documented in this encounter Plan of Treatment Upcoming Encounters Date Type Specialty Care Team Description 06/19/2022 Office Visit Rheumatology Richi Blackmon MD [facility] RHEUMATOLOGY [place], [place] [address] (Wo rk) Scheduled Procedures Name Priority Associated Diagnoses Date/Time EGD, UPPER GI ENDOSCOPY Family hx of colon cance r COLONOSCOPY, DIAGNOSTIC Family hx of colon cance r documented as of this encounter Results (ABNORMAL) Hemoglobin A1c (10/30/2017 1:15 PM EDT) [facility] gist Method Time Signature Hemoglobin A1C 10.1 (H) 4.3 - 5.6 [facility] Comment: Reference Range: 4.3 - [...] Mellitus, Diabetes Care 2013; 36: Suppl. 1, S67-07 Est Avg Gluc 243 mg/dL [facility] Comment: eAG equivalents for HbA1c percentages: HbA1c(%) ?eAG(mg/dL) 6.0 ?126 6.5 ?140 7.0 ?154 7.5 ?169 8.0 ?183 8.5 ?197 9.0 ?212 9.5 ?226 10.0 ? 240 Limitations: The eAG calculation has not been validated on women, individuals below 18 years old and above 70 years old, and individuals with hemoglobinopathies. Additional resources are available on [facility] website. José FLORES, Chaz Echeverria, Jeff Arauz, et al. ??Tr anslating the A1C assay into estimated average glucose values. ??Diabetes Care 2008:31(8):2821-0110. Specimen Anatomical Collection Method Collection Time Receive d Time (Source) Location / / Volume Laterality Blood specimen 10/30/2017 1:15 PM 018 1:19 (specimen) EDT PM EDT Resulting Agency Comment Spec In Lab Rhiannon Headley MD CHEMISTRY ORDERABLES Performing Organization Address [facility] [place] [address] Prothrombin Time (10/30/2017 1:15 PM EDT) athologist Signature PT 11.8 9.4 - 12.5 [facility] LABORATORY INR 1.1 [facility] Comment: An INR <2.0 indicates [...] Headley MD HEMATOLOGY ORDERABLES Performing Organization Address [facility] [place] [address] (ABNORMAL) Comprehensive metabolic panel (non-fasting) (10/30/2017 1:15 PM EDT) athologist Signature Glucose Lvl 365 (H) 65 - 199 [facility] mg/dL [facility] Comment: Diabetes: >=200 mg/dL plus symp toms BUN 71 (H) 10 - 20 mg/dL [facility] Creatinine 3.62 (H) 0.80 - 1.50 mg/dL [facility] Sodium 133 (L) 135 - 145 mmol/L [facility] Potassium 4.9 3.5 - 5.0 mmol/L [facility] Comment: Please note: ??Patients with WBC >100,00 0 may have falsely elevated Potassium levels. ??For accurate Potassium quantif ication in these patients send serum separator tube (gold top) for subsequent determinations. ??Contact the Clinical Chemistry Laboratory if there are any qu estions. Chloride 99 98 - 107 mmol/L [facility] CO2 17 (L) 22 - 31 mmol/L [facility] Anion Gap 17 (H) 5 - 15 mmol/L [facility] Calcium 8.5 8.5 - 10.5 mg/dL [facility] Total Protein 7.7 6.1 - 8.0 gm/dL [facility] Albumin 3.5 3.2 - 5.2 gm/dL [facility] AST 25 0 - 39 unit/L [facility] ALT 26 0 - 55 unit/L [facility] Alk Phos 141 (H) 40 - 120 unit/L [facility] Total Bilirubin 0.5 0.2 - 1.3 mg/dL [facility] Estimated GFR 17 (L) >=60 [facility] Comment: The reported eGFR should be multiplied b y 1.2 for patients. The MDRD is not an appropriate measure o f renal function for patients with body mass extremes or in patients with acute kidney failure. http://[employer].Webupo/DHnkdep http://[employer]/DHMCnkf Specimen Anatomical Collection Method Collection Time Receive d Time (Source) Location / / Volume Laterality Blood specimen 10/30/2017 1:15 PM 018 1:19 (specimen) EDT PM EDT Resulting Agency Comment Spec In Lab Rhiannon Headley MD CHEMISTRY ORDERABLES Performing Organization Address City/State/[place] [address] MRI Abdomen wwo Contrast (Generic) (10/30/2017 12:27 PM EDT) Anatomical Region Laterality Modality Abdomen Magnetic Resonance Specimen (Source) Anatomical Location Collection Method / Collectio n Time Received Time / Laterality Volume Impressions 10/30/2017 2:40 PM EDT 1. ??Cirrhosis with evidence of portal h ypertension. 2. ??No suspicious hepatic lesion. 3. ??Stable 10 mm nonenhancing pancreati c cystic lesion without suspicious features. Preliminary report signed by: Tae Yañez at 10/30/2017 1:13 PM I have personally reviewed the image(s) and the residents interpretation and agree with the findings, Richard martinze at 10/30/2017 2:40 PM Narrative 10/30/2017 2:40 PM EDT EXAMINATION: MRI ABDOMEN WWO CONTRAST (GENERIC) CLINICAL HISTORY: cirrhosis d/t HORTON, HC C screening, no new lesions on prior US and MRI, stable hemangioma and pancreati c cyst TECHNIQUE: MRI of the abdomen was perfor med with images obtained prior to and following intravenous administration of 25ml of Dotarem using the dynamic liver protocol. COMPARISONS: none FINDINGS: Prior interventions: None. Liver Morphology: Mildly nodular hepatic capsular contour. No signal dropout on out of phase sequence. Focal hepatic lesions: No suspicious hep atic lesion. A 1.4 cm moderately T2 hyperintense centripetally enhancing les ion consistent with hemangioma seen in the inferior right hepatic lobe. Portal Vein: Widely Patent. Varices: Recanalized umbilical vein and left abdomen varices. Ascites: None. Bile ducts: Nondilated. Gallbladder: No gallstones. Normal calib er wall. Spleen: Enlarged measuring 17 cm Pancreas: Stable nonenhancing unilocular 10 mm ovoid cyst in the pancreatic body without suspicious features. Homogenous enhancement of the pancreas parenchyma. Adrenals: Normal. Kidneys: Symmetric size and enhancement. Stable nonenhancing cysts in the right upper pole and left lower pole. Aorta: No aneurysm. Lymph nodes: No enlarged lymph nodes. Bowel: Nondilated, no inflammatory sosa es. Marrow Signal: No suspicious marrow sign al. Procedure Note Richard Brantley MD - 10/30/2017Form atting of this note might be different from the original. EXAMINATION: MRI ABDOMEN WWO CONTRAST (G ENERIC) CLINICAL HISTORY: cirrhosis d/t HORTON, HC C screening, no new lesions on prior US and MRI, stable hemangioma and pancreati c cyst TECHNIQUE: MRI of the abdomen was perfor med with images obtained prior to and following intravenous administration of 25ml of Dotarem using the dynamic liver protocol. COMPARISONS: none FINDINGS: Prior interventions: None. Liver Morphology: Mildly nodular hepatic capsular contour. No signal dropout on out of phase sequence. Focal hepatic lesions: No suspicious hep atic lesion. A 1.4 cm moderately T2 hyperintense centripetally enhancing les ion consistent with hemangioma seen in the inferior right hepatic lobe. Portal Vein: Widely Patent. Varices: Recanalized umbilical vein and left abdomen varices. Ascites: None. Bile ducts: Nondilated. Gallbladder: No gallstones. Normal calib er wall. Spleen: Enlarged measuring 17 cm Pancreas: Stable nonenhancing unilocular 10 mm ovoid cyst in the pancreatic body without suspicious features. Homogenous enhancement of the pancreas parenchyma. Adrenals: Normal. Kidneys: Symmetric size and enhancement. Stable nonenhancing cysts in the right upper pole and left lower pole. Aorta: No aneurysm. Lymph nodes: No enlarged lymph nodes. Bowel: Nondilated, no inflammatory sosa es. Marrow Signal: No suspicious marrow sign al. IMPRESSION 1. Cirrhosis with evidence of portal hyp ertension. 2. No suspicious hepatic lesion. 3. Stable 10 mm nonenhancing pancreatic cystic lesion without suspicious features. 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
--- OUTSIDE RECORDS SUMMARY | 2022-04-11 10:51 | XMS_ITS | Encounter Summary ---
:1960 Author Organization [facility] [place] [address] Care Team Providers Name Role Phone Jazmine Baer MD Primary Care Provider Encounter Details Date Type Department Care Team Description 01/25/2017 Telephone Hematology [place] [address] Social History Tobacco Use Types Packs/Day Years Used Date Never Smoker Smokeless Tobacco: Never Used Alcohol Use Standard Drinks/Week Comments No 0 (1 standard drink = 0.6 oz pure alcoho l) Sex Assigned at Date Recorded Not on file documented as of this encounter Miscellaneous Notes Telephone Encounter - Jessica Santos RN - 01/25/2017 4:[address] Ignacio, patient is currently receiving IVIG at [facility], and needs Venofer. Patient is currently scheduled for IVIG next Saturday and at [facility] on the infusion floor. Patient is asking if thiscan be done at the same location on the same day Contacted Second Floor infusion at [phone] and spoke with WES Rogers. She is familiar with this patient and states they can give Venofer there. She will speak with patient about it Saturday during his appt. She states it will add an extra 1.5 hrs to his scheduled appt. Orders can be faxed to them at: [phone] Ignacio and faxed to Sue's attn at above number as requested RN will continue to follow documented in this encounter Plan of Treatment Upcoming Encounters Date Type Specialty Care Team Description 06/19/2022 Office Visit Rheumatology Richi Blackmon MD [facility] DR RHEUMATOLOGY [place], [place] [address] (Wo rk) Scheduled Procedures Name Priority Associated Diagnoses Date/Time EGD, UPPER GI ENDOSCOPY Family hx of colon cance r COLONOSCOPY, DIAGNOSTIC Family hx of colon cance r documented as of this encounter Visit Diagnoses Not on filedocumented in this encounter Care Teams Assistant Clinical Director Relationship Specialty Start Date End Date Jazmine Baer MD PCP - General 11/07/10 [address] [place] [address] documented as of this encounter
--- OUTSIDE RECORDS SUMMARY | 2022-04-11 10:51 | XMS_ITS | Encounter Summary ---
:1960 Author Organization [facility] [place] [address] Care Team Providers Name Role Phone Jazmine Baer MD Primary Care Provider Encounter Details Date Type Department Care Team Description 11/12/2016 Surgery Gastroenterology at [facility] Rhiannon Headley MD COLONOSCOPY, [facility] Hilda shafer [facility] [place] [address] GASTROENTEROLOGY [place] [id number] Social History Tobacco Use Types Packs/Day Years [...] be sent through Care Everywhere. COLONOSCOPY: POST-OP (LITHUANIAN)documented in this encounter Medications at Time of [...] Office Visit Rheumatology Richi Blackmon MD [facility] ER DR RHEUMATOLOGY [place], [place] [address] (Wo rk) Scheduled Procedures Name [...] encounter Results COLONOSCOPY (11/12/2016 8:01 AM EDT) [facility] Method Time Signature COLONOSCOPY [facility] PROVATION Endoscopy Procedure Date: 11/12/2016 8:01 AM ? Patient Name: Bucky Acevedo ? Date of : 1960 ? Age: 56 ? Order #: [id number] ? Instrument Name: [id number] ? Procedure: ? Colonoscopy Indications: ? Iron [...] PROVATION documented in this encounter Visit Diagnoses Diagnosis Durand's esophagus documented in this encounter Administered Medications Inactive [...] Routine documented in this encounter Care Teams Extension Worker Relationship Specialty Start Date End Date Jazmine Baer MD PCP - General 11/07/10 [address] [place] [address] documented as of this encounter
--- OUTSIDE RECORDS SUMMARY | 2022-04-11 10:51 | XMS_ITS | Encounter Summary ---
:1960 Author Organization [facility] [place] [address] Care Team Providers Name Role Phone Jazmine Baer MD Primary Care Provider Reason for Visit Reason Comments Injections procrit Encounter Details Date Type Department Care Team Description 06/13/2017 Infusion Hematology Oncology at [facility], unspecified type [address] [phone] Social History Tobacco Use Types Packs/Day Years Used Date Never Smoker Smokeless Tobacco: Never Used Alcohol Use Standard Drinks/Week Comments No 0 (1 standard drink = 0.6 oz pure alcoho l) Sex Assigned at Date Recorded Not on file documented as of this encounter Progress Notes Tila Bauer RN - 06/13/2017 10:00 AM EST Infusion Note Diagnosis:Anemia Treatment: Procrit [place] [facility] [place] 06/18/17 at [facility] Procrit 20,000 mcg injected in right arm. Patient aware to call clinic with any questions or concerns. Plan: Return to clinic weekly as scheduled with every other week labs. documented in this encounter Plan of Treatment Upcoming Encounters Date Type Specialty Care Team Description 06/19/2022 Office Visit Rheumatology Richi Blackmon MD [facility] DR RHEUMATOLOGY [place], [place] [address] (Wo rk) Scheduled Procedures Name Priority Associated Diagnoses Date/Time EGD, UPPER GI ENDOSCOPY Family hx of colon cance r COLONOSCOPY, DIAGNOSTIC Family hx of colon cance r documented as of this encounter Visit Diagnoses Diagnosis Anemia, unspecified type documented in this encounter Care Teams Psychologist Chief Relationship Specialty Start Date End Date Jazmine Baer MD PCP - General 11/07/10 [address] [place] [address] documented as of this encounter
--- OUTSIDE RECORDS SUMMARY | 2022-04-11 10:51 | XMS_ITS | Encounter Summary ---
:1960 Author Organization [facility] [place] [address] Care Team Providers Name Role Phone Jazmine Baer MD Primary Care Provider Encounter Details Date Type Department Care Team Description 01/25/2017 Hospital Encounter Hematology and Anemia, unspecified type; [place] [facility] [place] [phone] Social History Tobacco Use Types Packs/Day Years [...] (ZYLOPRIM) 300 mg MOUTH EVERY DAY Tablet UNABLE TO FIND Solumedrol IV with [...] 06/19/2022 Office Visit Rheumatology Richi Blackmon MD [facility] RHEUMATOLOGY [place], [place] [address] (Wo rk) Scheduled Procedures Name Priority Associated Diagnoses Date/Time EGD, UPPER GI ENDOSCOPY Family hx of colon cance r COLONOSCOPY, DIAGNOSTIC Family hx of colon cance r documented as of this encounter Procedures Procedure Name Priority Date/Time Associated Comments Diagnosis IMMUNOGLOBULIN FREE Routine 01/25/2017 1:45 Anemia, unspecifie d Results for this LIGHT CHAINS, SERUM PM EDT type procedure are in Thrombocytopenia the results section. IMMUNOGLOBULINS, STAT 01/25/2017 1:45 Anemia, unspecified R esults for this QUANTITATIVE PM EDT type procedure are in Thrombocytopenia the results section. HEMOGRAM Routine 01/25/2017 1:45 Anemia, unspecified Resul ts for this PM EDT type procedure are in Thrombocytopenia the results section. DIFFERENTIAL, AUTOMATED Routine 01/25/2017 1:45 Anemia, unspec ified Results for this PM EDT type procedure are in Thrombocytopenia the results section. IRON AND TIBC Routine 01/25/2017 1:45 Anemia, unspecified Resu lts for this PM EDT type procedure are in Thrombocytopenia the results section. SEDIMENTATION RATE STAT 01/25/2017 1:45 Anemia, unspecified Results for this PM EDT type procedure are in Thrombocytopenia the results section. RETICULOCYTE COUNT STAT 01/25/2017 1:45 Anemia, unspecified Results for this PM EDT type procedure are in Thrombocytopenia the results section. CBC (WITH DIFF) Routine 01/25/2017 1:45 Anemia, unspecified PM EDT type Thrombocytopenia PROTEIN STAT 01/25/2017 1:45 Anemia, unspecified Resul ts for this ELECTROPHORESIS, SERUM PM EDT type procedure are in Thrombocytopenia the results section. LACTATE DEHYDROGENASE Routine 01/25/2017 1:45 Anemia, unspecif ied Results for this PM EDT type procedure are in Thrombocytopenia the results section. FOLATE, SERUM Routine 01/25/2017 1:45 Anemia, unspecified Resu lts for this PM EDT type procedure are in Thrombocytopenia the results section. FERRITIN Routine 01/25/2017 1:45 Anemia, unspecified Resul ts for this PM EDT type procedure are in Thrombocytopenia the results section. VITAMIN B12 STAT 01/25/2017 1:45 Anemia, unspecified Resul ts for this PM EDT type procedure are in Thrombocytopenia the results section. COMPREHENSIVE METABOLIC Routine 01/25/2017 1:45 Anemia, unspec ified Results for this PANEL (NON-FASTING) PM EDT type procedure are in Thrombocytopenia the results section. documented in this encounter Results (ABNORMAL) Differential, Automated (01/25/2017 1:45 PM EDT) [facility] Method Time Signature Neutrophils % 66.0 % [facility] Neutr Abs (ANC) 2.72 1.70 - [facility] 6.10 [facility] x10(3)/[facility] LABORATORY Lymphocytes % 17.5 % [facility] Lymphocytes Abs 0.7 (L) 0.9 - 3.2 [facility] x10(3)/[facility] LABORATORY Monocytes % 6.6 % [facility] Monocyte Abs 0.3 0.3 - 0.9 [facility] x10(3)/[facility] LABORATORY Eosinophils % 8.5 % [facility] Eosinophils Abs 0.4 0.0 - 0.4 [facility] x10(3)/[facility] LABORATORY Basophils % 1.2 % [facility] Basophils Abs 0.0 0.0 - 0.1 [facility] x10(3)/[facility] LABORATORY Immature Gran % 0.20 % [...] Tamara Gran Abs 0.01 0.00 - 0.04 x10(3)/[facility] MAR Y [facility] Specimen Anatomical Collection Method Collection Time Receive d Time (Source) Location / / Volume Laterality Blood specimen 01/25/2017 1:45 PM 017 2:01 (specimen) EDT PM EDT Resulting Agency Comment Spec In Lab Jayden Ignacio MD HEMATOLOGY ORDERABLES Performing Organization Address City/State/[place] [address] (ABNORMAL) Hemogram (01/25/2017 1:45 PM EDT) Analysis Performed At Patho logist Time Signature WBC 4.1 4.0 - 9.5 [facility] x10(3)/[facility] LABORATORY RBC 3.45 (L) 4.58 - [facility] 5.54 [facility] x10(6)/[facility] LABORATORY Hemoglobin 10.1 (L) 13.7 - [facility] 16.5 gm/dL [facility] Hematocrit 31.5 (L) 40.5 - [facility] 48.5 % [facility] MCV 91.3 82.9 - [facility] 93.1 fL [facility] MCH 29.3 27.5 - [facility] 32.1 pg [facility] MCHC 32.1 32.0 - [facility] 35.7 gm/dL [facility] Platelets 94 (L) 145 - 357 [facility] x10(3)/[facility] LABORATORY RDWSD 60.0 (H) 36.0 - [facility] 45.[address] [facility] LABORATORY RDWCV 18.1 (H) 11.4 - [facility] 13.8 % [facility] MPV 12.4 7.6 - 12.9 [facility] LABORATORY nRBC % Auto 0.0 % [facility] nRBC Abs Auto 0.000 0.000 - [facility] 0.000 [facility] x10(3)/[facility] LABORATORY Specimen Anatomical Collection Method Collection Time Receive d Time (Source) Location / / Volume Laterality Blood specimen 01/25/2017 1:45 PM 017 2:01 (specimen) EDT PM EDT Resulting Agency Comment Spec In Lab Jayden Ignacio MD HEMATOLOGY ORDERABLES Performing Organization Address City/[facility] [place] [address] (ABNORMAL) Free Light Chains, Serum (01/25/2017 1:45 PM EDT) Analysis Performed At Patho logist Time Signature [place] Free 3.89 (H) 0.88 - [facility] Light Chains 3.69 mg/dL [facility] Comment: Please be advised that following a multi -institution study the reference interval for Serum Free Light Chains was updated January 09, 2017. Lambda Free Light Chains 2.39 (H) 0.91 - 2.03 mg/dL [facility] Comment: Please be advised that following a multi -institution study the reference interval for Serum Free Light Chains was updated January 09, 2017. [place]/Lambda Free Light Chain 1.6276 0.7200 - 2.0700 [facility] LABORATORY Comment: Please be advised that [...] Organization Address City/State/[place] [address] Lactate Dehydrogenase (01/25/2017 1:45 PM EDT) athologist Signature LDH 164 110 - 220 [facility]L [facility] Specimen Anatomical Collection Method Collection Time Receive d Time (Source) Location / / Volume Laterality Blood specimen 01/25/2017 1:45 PM 017 2:01 (specimen) EDT PM EDT Resulting Agency Comment Spec In Lab Jayden Ignacio MD CHEMISTRY ORDERABLES Performing Organization Address City/State/[place] [address] (ABNORMAL) Immunoglobulins, Quantitative (01/25/2017 1:45 PM EDT) athologist Signature IgG 1,745 (H) 700 - [facility] 1,600 [facility] mg/dL [facility] IgA 139 70 - 400 [facility] mg/dL [facility] IgM 37 (L) 40 - 230 [facility] mg/dL [facility] Specimen Anatomical Collection Method Collection Time Receive d Time (Source) Location / / Volume Laterality Blood specimen 01/25/2017 1:45 PM 017 2:01 (specimen) EDT PM EDT Resulting Agency Comment Spec In Lab Jayden Ignacio MD CHEMISTRY ORDERABLES Performing Organization Address City/State/[place] [address] (ABNORMAL) Protein Electrophoresis, serum (01/25/2017 1:45 PM EDT) [facility] gist Method Time Signature Total Prot 7.7 6.1 - 8.0 [facility] Elec gm/dL [facility] Albumin Elect 4.10 3.60 - [facility] 6.00 [facility] gm/dL [facility] Alpha1-Globul 0.25 0.10 - [place] in 0.30 [facility] gm/dL HOSPITAL LABORATORY Alpha2-Globul 0.83 0.40 - [place] in 0.90 [facility] gm/dL HOSPITAL LABORATORY Beta Globulin 0.87 0.50 - [facility] 1.00 [facility] LABORATORY Gamma 1.65 (H) 0.50 - [facility] Globulin 1.30 [facility] LABORATORY M1 Band None [facility] LABORATORY Specimen Anatomical Collection Method Collection Time Receive d Time (Source) Location / / Volume Laterality Blood specimen 01/25/2017 1:45 PM 017 2:01 (specimen) EDT PM EDT Narrative This result has an attachment that is no t available. Resulting Agency Comment Spec In Lab Jayden Ignacio MD CHEMISTRY ORDERABLES Performing Organization Address City/[facility]/[place] [address] (ABNORMAL) Iron and TIBC (01/25/2017 1:45 PM EDT) P athologist Signature Iron 62 45 - 160 [facility] mcg/dL [facility] TIBC 405 250 - 450 [facility] mcg/dL [facility] Iron Saturation 15 (L) 20 - 50 % [facility] Specimen Anatomical Collection Method Collection Time Receive d Time (Source) Location / / Volume Laterality Blood specimen 01/25/2017 1:45 PM 017 2:01 (specimen) EDT PM EDT Resulting Agency Comment Spec In Lab Jayden Ignacio MD CHEMISTRY ORDERABLES Performing Organization Address City/[facility]/[place] [address] (ABNORMAL) Sedimentation rate (01/25/2017 1:45 PM EDT) P athologist Signature Sed Rate 76 (H) 0 - 15 [facility] mm/hr [facility] Specimen Anatomical Collection Method Collection Time Receive d Time (Source) Location / / Volume Laterality Blood specimen 01/25/2017 1:45 PM 017 2:01 (specimen) EDT PM EDT Resulting Agency Comment Spec In Lab Jayden Ignacio MD HEMATOLOGY ORDERABLES Performing Organization Address City/[facility]/[place] [address] Ferritin (01/25/2017 1:45 PM EDT) athologist Signature Ferritin 108 30 - 400 [facility] ng/mL [facility] Comment: Pediatric reference ranges not verified at [facility], interpret with caution. Reference ranges for females greater kayleigh n 50 years of age approach values for men, i.e., 30-400 ng/mL. Specimen Anatomical Collection Method Collection Time Receive d Time (Source) Location / / Volume Laterality Blood specimen 01/25/2017 1:45 PM 017 2:01 (specimen) EDT PM EDT Resulting Agency Comment Spec In Lab Jayden Ignacio MD CHEMISTRY ORDERABLES Performing Organization Address City/[facility]/ZIP Code Phon e Number [address] Folate, serum (01/25/2017 1:45 PM EDT) athologist Signature Folate Lvl >20.0 4.8 - 24.2 [place] ng/mL [facility] Specimen Anatomical Collection Method Collection Time Receive d Time (Source) Location / / Volume Laterality Blood specimen 01/25/2017 1:45 PM 017 2:01 (specimen) EDT PM EDT Resulting Agency Comment Spec In Lab Jayden Ignacio MD CHEMISTRY ORDERABLES Performing Organization Address City/[facility]/[place] [address] (ABNORMAL) Vitamin B12 (01/25/2017 1:45 PM EDT) Analysis Performed At Patho logist Time Signature Vitamin B-12 1,101 (H) 207 - 974 [place] pg/mL [facility] Specimen Anatomical Collection Method Collection Time Receive d Time (Source) Location / / Volume Laterality Blood specimen 01/25/2017 1:45 PM 017 2:01 (specimen) EDT PM EDT Resulting Agency Comment Spec In Lab Jayden Ignacio MD CHEMISTRY ORDERABLES Performing Organization Address City/State/[place] [address] Reticulocyte Count (01/25/2017 1:45 PM EDT) athologist Signature Retic Ct % 1.8 0.7 - 2.6 [facility] LABORAT[facility] Retic Ct Abs 0.060 0.030 - [facility] 0.120 [facility] x10(6)/[facility] LABORATORY Immature Retic% 10.8 0.0 - 15.6 [facility] LABORATORY Reticulated Hgb 31.8 31.3 - [facility] 40.2 [facility] LABORATORY Specimen Anatomical Collection Method Collection Time Receive d Time (Source) Location / / Volume Laterality Blood specimen 01/25/2017 1:45 PM 017 2:01 (specimen) EDT PM EDT Resulting Agency Comment Spec In Lab Jayden Ignacio MD HEMATOLOGY ORDERABLES Performing Organization Address City/State/[place] [address] (ABNORMAL) Comprehensive metabolic panel (non-fasting) (01/25/2017 1:45 PM EDT) athologist Signature Glucose Lvl 345 (H) 65 - 199 [facility] mg/dL [facility] Comment: Diabetes: >=200 mg/dL plus symp toms BUN 55 (H) 10 - 20 mg/dL [facility] Creatinine 2.52 (H) 0.80 - 1.50 mg/dL [facility] Comment: Please note that the pediatric reference intervals supplied above were not validated at [facility]. Results from pediatri c patients should be interpreted in conjunction to the patient's age, height and muscle mass. Sodium 140 135 - 145 mmol/L [facility] Potassium 4.3 3.5 - 5.0 mmol/L [facility] Comment: Please note: ??Patients with WBC >100,00 0 may have falsely elevated Potassium levels. ??For accurate Potassium quantif ication in these patients send serum separator tube (gold top) for subsequent determinations. ??Contact the Clinical Chemistry Laboratory if there are any qu estions. Chloride 104 98 - 107 mmol/L [facility] CO2 19 (L) 22 - 31 mmol/L [facility] Anion Gap 17 (H) 5 - 15 mmol/L [facility] Calcium 9.2 8.5 - 10.5 mg/dL [facility] Total Protein 8.2 (H) 6.1 - 8.0 gm/dL [facility] Albumin 3.6 3.2 - 5.2 gm/dL [facility] AST 22 0 - 39 unit/L [facility] ALT 16 0 - 55 unit/L [facility] Alk Phos 118 40 - 120 unit/L [facility] Total Bilirubin 0.5 0.2 - 1.3 mg/dL [facility] Estimated GFR 26 (L) >=60 [facility] Comment: This estimated GFR (eGFR) [...] the following links into your internet browser. [email or web address] Specimen Anatomical Collection Method Collection Time Receive d Time (Source) Location / / Volume Laterality Blood specimen 01/25/2017 1:45 PM 017 2:01 (specimen) EDT PM EDT Resulting Agency Comment Spec In Lab Jayden Ignacio MD CHEMISTRY ORDERABLES Performing Organization Address City/State/[place] [address] documented in this encounter Visit Diagnoses Diagnosis Anemia, unspecified type Thrombocytopenia Thrombocytopenia, unspecified documented in this encounter Care Teams Foundry Laborer Coreroom Relationship Specialty Start Date End Date Jazmine Baer MD PCP - General 11/07/10 [address] [place] [address] documented as of this encounter
--- OUTSIDE RECORDS SUMMARY | 2022-04-11 10:51 | XMS_ITS | Encounter Summary ---
:1960 Author Organization [facility] [place] [address] Care Team Providers Name Role Phone Jazmine Baer MD Primary Care Provider Reason for Visit Consultation (Routine) - Canceled Specialty Diagnoses / Procedures Referred By Contact Refer red To Contact Nephrology Diagnoses Anemia, unspecified type Karen Lugo APRN [facility] [address] [place] [address] [facility] HEMATOLOGY/[place] [address] [place] [address] Referral ID Status Reason Start Date Expiration Date Visits V isits Requested Authorized [id number] Canceled Consult, 06/05/2017 06/05/2018 1 1 Test & Treat Encounter Details Date Type Department Care Team Description 07/02/2017 Office Visit Nephrology Hypertension Lea Villavicencio, CKD (chronic kidney disease) stage 3, GFR 30-59 ml/min; at [facility] Anemia of chronic renal failure, stage 3 (moderate) [facility] [place] [address] NEPHROLOGY DEPT. [phone] [place], [place] [address] Social History Tobacco Use Types Packs/Day Years Used Date Never Smoker Smokeless Tobacco: Never Used Alcohol Use Standard Drinks/Week Comments No 0 (1 standard drink = 0.6 oz pure alcoho l) Sex Assigned at Date Recorded Not on file documented as of this encounter Last Filed Vital Signs Vital Sign Reading Time Taken Comments Blood Pressure 132/68 07/02/2017 8:57 AM EST Pulse 64 07/02/2017 8:57 AM EST Temperature - - Respiratory Rate - - Oxygen Saturation - - Inhaled Oxygen Concentration - - Weight 121.1 kg (267 lb) 07/02/2017 8:57 AM EST Height 175.3 cm (5' 9) 07/02/2017 8:57 AM EST Body Mass Index 39.43 07/02/2017 8:57 AM EST documented in this encounter Progress Notes Lea Villavicencio MD - 07/02/2017 2:00 PM EST Images from the original note were not included. Renal and Hypertension New Patient Visit 07/02/2017 History of Presenting Complaint including relevant review of systems This is a new patient visit to the Renal and Hypertension clinic for this 57 y.o. year old male referred by Jazmine Baer MD The referring documents were reviewed. Additional data were obtained from the [facility] records ([facility] and [facility]) and the referring physician's office. CKD stage IIIb A1, unclear etiology, likely secondary to chronic myoglobin toxicity, chronic hyperuricemia, with or without chronic immunoglobulin associated tubular toxicity, possible underlying atypical diabetic nephropathy. ?? History of diabetes type 2 since the patient's teens. Recent hemoglobin A1c 6 - 7.5%. No history of diabetic retinopathy per patient report. Endorses occasional numbness and tingling in the hands and feet.. ?? 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 ReceivesIV immunoglobulin 2400 mils monthly.. Receives intravenous methylprednisolone prior to infusions. ?? Gout. Most recent attack July 2016. At that time uric acid 14 mg/dL. Currently 5.7 mg/dL on allopurinol.. No recent episodes ?? Nephrolithiasis. 2 episodes. None recent.. ?? Hypertension since his teens. Well controlled on lisinopril, hydrochlorothiazide. ?? Anemia. Has received erythropoietin in the past. Last dose 1 year ago ?? Cirrhosis secondary to nonalcoholic steatohepatitis. ?? Family history of tuberous sclerosis, some. Patient is negative for TS by genetic testing There is no previous history of, hepatitis identified primary renal disease, nephrolithiasis, urinary tract infection, heart disease, stroke, peripheral vascular disease collagen vascular disease Additional Past Medical History Patient Active Problem List Diagnosis Code ??? Myopathy G72.9 ??? Nausea and vomiting R11.2 ??? Diabetes mellitus, type II E11.9 ??? Hepatosplenomegaly R16.2 ??? Durand's esophagus K22.70 ??? Nonalcoholic steatohepatitis (HORTON) K75.81 ??? Anemia D64.9 ??? Skin rash R21 ??? Imbalance R26.89 ??? Myositis M60.9 ??? Gout M10.9 ??? Thrombocytopenia D69.6 ??? Chronic fatigue R53.82 Family history Mother age 60 diabetes, colon cancer, chronic kidney disease, vascular disease Father Sibs sister of diabetes peripheral vascular disease Children 4 sons, one has tuberosclerosis. Presented with seizures. Remainder immediate family genetic testing negative. Other paternal uncle diabetes Social and Habits Disabled. Tobacco none Alcohol rarely Excercise active. Uses treadmill. Diet/nutrition regular, minimal red meat nephrolithiasis. Other Medications Current Outpatient Prescriptions Medication Sig Dispense Refill ??? epoetin matt (PROCRIT) 10,000 unit/mL Solution Inject subcutaneously once a week. ??? allopurinol (ZYLOPRIM) 300 mg Tablet Take 300 mg by mouth daily. ??? HUMALOG KWIKPEN 100 unit/mL Insulin Pen INJECT 40 UNITS SUBCUTANEOUSLY BEFORE MEALS 3 ??? ONETOUCH ULTRA TEST Strip TEST DIRECTED THREE [...] in AM, 80 units in PM ??? indomethacin (INDOCIN) 50 mg Capsule Take [...] No current facility-administered medications for this visit. No NSAIDs. No OTCs or supplements Review of Systems Complete review of systems is negative apart from relevant positives and negatives listed above On examination This is a [id number] y.o. male in no acute distress Blood pressure 132/68, pulse 64, height 175.3 cm (5' 9), weight 121.1 kg (267 lb). Body mass index is 39.43 kg/(m^2). There is no uremic fetor and no asterixis The head is normal There is no conjunctival pallor The hands and nails are unremarkable The oropharynx appears normal. Dentition is fair There is no jugular venous distention There is trace peripheral edema at the ankles and no sacral edema The heart sounds are S1 + S2 with no rubs, murmurs or gallops The Breath sounds are vesicular throughout with no added sounds The thoracic and lumbar spine is non tender to percussion along its length The abdomen is obese, soft and nontender. There are pinkish striae. there is no costovertebral angletenderness. The carotid, brachial, dorsalis pedis and posterior tibial pulses are present and equal without bruits. There are no abdominal bruits Gait is normal. Facies symmetrical. MINESH, Mentation and speech are normal Labs: Reviewed outside laboratory values and data available in eDH. Results for BUCKY BETH ( ) as of 07/10/2017 11:56 Ref. Range 04/11/2017 09:59 05/24/2017 11:43 07/02/2017 13:24 WBC Latest Ref Range: 4.0 - 9.5 x10(3)/mcL 5.3 5.6 5.4 RBC Latest Ref Range: 4.58 - 5.54 x10(6)/mcL 3.22 (L) 2.98 (L) 3.24 (L) Hemoglobin Latest Ref Range: 13.7 - 16.5 gm/dL 10.3 (L) 9.8 (L) 10.4 (L) Hematocrit Latest Ref Range: 40.5 - 48.5 % 30.7 (L) 29.2 (L) 32.4 (L) MCV Latest Ref Range: 82.9 - 93.1 fL 95.3 (H) 98.0 (H) 100.0 (H) MCH Latest Ref Range: 27.5 - 32.1 pg 32.0 32.9 (H) 32.1 MCHC Latest Ref Range: 32.0 - 35.7 gm/dL 33.6 33.6 32.1 RDWSD Latest Ref Range: 36.0 - 45.0 fL 58.2 (H) 59.7 (H) 56.1 (H) RDWCV Latest Ref Range: 11.4 - 13.8 % 16.8 (H) 16.7 (H) 15.2 (H) Platelets Latest Ref Range: 145 - 357 x10(3)/mcL 69 (L) 76 (L) 73 (L) MPV Latest Ref Range: 7.6 - 12.9 fL 13.3 (H) 13.0 (H) 11.[address] % Latest Ref Range: 0.7 - 2.6 % 2.[address] Abs Latest Ref Range: 0.030 - 0.120 x10(6)/mcL 0.070 Immature Retic% Latest Ref Range: 0.0 - 15.6 % 20.8 (H) Reticulated Hgb Latest Ref Range: 31.3 - 40.2 pg 35.3 nRBC % Auto Latest Units: % 0.0 0.0 0.0 nRBC Abs Auto Latest Ref Range: 0.000 - 0.000 x10(3)/mcL 0.000 0.000 0.000 Neutr Abs (ANC) Latest Ref Range: 1.70 - 6.10 x10(3)/mcL 3.51 4.28 3.89 Results for BUCKY BETH ( ) as of 07/10/2017 11:56 Ref. Range 09/19/2016 12:20 01/25/2017 13:45 04/11/2017 09:59 05/24/2017 11:43 07/02/2017 13:24 Sodium Latest Ref Range: 135 - 145 [...] 1.42 2.52 (H) 1.67 (H) 2.18 (H) 1.82 (H) Estimated GFR Latest Ref Range: >=60 51 (L) 26 (L) 42 (L) 31 (L) 38 (L) Glucose Lvl Latest Ref Range: [...] Range: 207 - 974 pg/mL 1101 (H) Results for UBCKY BETH ( ) as of 07/10/2017 11:56 Ref. Range 07/11/2016 16:13 07/02/2017 13:30 Alb/Cr Ratio, Random Latest Ref Range: 0 - 29 mcg/mg Cr 10 U Albumin Conc, Random Latest Units: mg/L 3.5 U Creatinine Latest Units: mg/dL 41 36 U Sodium Latest Units: mmol/L 31 U Potassium Latest Units: mmol/L 7 U Chloride Latest Units: mmol/L <20 Radiology studies: Reports: I personally reviewed the following images: Abdominal ultrasound August 2015 bilateral kidneys with reduced corticomedullary differentiation and possible cortical thinning. Kidney length is normal. Urinalysis and microscopy: Renal clinic laboratory Urine dipstick: negative for blood, protein, leucocytes Urine microscopy: Low and High power cano occasional white blood cells. Otherwise negative for cells,casts, crystals Assessment and Recommendations 1. Stable or very slowly progressive CKD stage IIIb A1, unclear etiology, likely secondary to chronic tubular injury secondary to chronic myoglobin toxicity, chronic hyperuricemia, with or without chronic immunoglobulin associated tubular toxicity, possible underlying atypical diabetic nephropathy. 2. Hypertension well controlled on current medications. 3. Anemia. Likely multifactorial. CKD, cirrhosis. No current indication for iron, erythropoietin 4. Gout with hyperuricemia. Continue allopurinol. Strongly recommend avoid nonsteroidals particularly indomethacin because of nephrotoxicity. Both prednisone and colchicine may be safely used for symptomatic gout in this population 5. I have asked the patient to have medications renewed by your office as needed 6. Return to clinic 6 months with the above investigations - CKD/RV2 clinic Thank you for referring this interesting patient Addendum Creatinine 08/01/17 2.95, eGFR 22 ml/min. Uric acid 5.6 mg/dl. Will move RV2 appointment forward documented in this encounter Plan of Treatment Upcoming Encounters Date Type Specialty Care Team Description 06/19/2022 Office Visit Rheumatology Richi Blackmon MD [facility] ER DR RHEUMATOLOGY [place], [place] [address] (Wo rk) Scheduled Procedures Name Priority Associated Diagnoses Date/Time EGD, UPPER GI ENDOSCOPY Family hx of colon cance r COLONOSCOPY, DIAGNOSTIC Family hx of colon cance r documented as of this encounter Procedures Procedure Name Priority Date/Time Associated Diagnosis Comme nts U ALBUMIN/CRE RATIO Routine 07/02/2017 1:30 PM CKD (chronic ki dney Results for this EST disease) stage 3, procedure are in GFR 30-59 ml/min the results Anemia of chronic section. renal failure, stage 3 (moderate) documented in this encounter Results U Albumin/Cre Ratio (07/02/2017 1:30 PM EST) P athologist Signature Alb/Cr Ratio, 10 0 - 29 [facility] Random mcg/mg Cr [facility] Comment: Reference Ranges: <30 mcg/mg: Normal [...] 2, 357? 362 U Albumin Conc, Random 3.5 mg/L [facility] U Creatinine 36 mg/dL [facility] Specimen Anatomical Collection Method Collection Time Receive d Time (Source) Location / / Volume Laterality Urine specimen 07/02/2017 1:30 PM 018 4:25 (specimen) EST PM EST Resulting Agency Comment Spec In Lab Lea Villavicencio MD URINE ORDERABLES Performing Organization Address City/State/ZIP Code Phon e Number [place] [phone] documented in this encounter Visit Diagnoses Diagnosis CKD (chronic kidney disease) stage 3, GF R 30-59 ml/min Chronic kidney disease, Stage III (moder ate) Anemia of chronic renal failure, stage 3 (moderate) documented in this encounter Care Teams Quality Assurance Lab Technician Relationship Specialty Start Date End Date Jazmine Baer MD PCP - General 11/07/10 [address] [place] [address] documented as of this encounter
--- OUTSIDE RECORDS SUMMARY | 2022-04-11 10:51 | XMS_ITS | Encounter Summary ---
:1960 Author Organization [facility] [place] [address] Care Team Providers Name Role Phone Jazmine Baer MD Primary Care Provider Encounter Details Date Type Department Care Team Description 11/12/2016 Anesthesia Event Gastroenterology at [facility] Tash Villagomez, [facility] [place] [phone] [facility] [phone] DR ANESTHESIOLOGY [place], [place] [address] Anesthesia Record Procedure Summary Procedure Name Responsible Anesthesia Start Anesthesia Stop Anesthesiologist Time Time COLONOSCOPY, Tash Villagomez MD 11/12/16 0807 11/12/16 08 30 DIAGNOSTIC (N/A Trunk) Events Date Time Event Comment 11/12/2016 0756 0807 AN Verify 0807 Start 0807 An Start Data 0811 An Induction 0815 Anesthesia Ready 0830 an stop data 0830 Recovery or ICU Handoff Patient care was transferred to the destination unit staff after review of the patient's medica l history, current anesthetic/surgi carlos status and plan, according to the Provider Handoff Checklist. 0830 Stop Name Total Propofol 50 mg Propofol INF 257.25 mg Dexmedetomidine 8 mcg Lactated Ringers 0 mL Agents Name O2 Blood No blood administrations on file. Lines, Drains, and Airways Type Details Placement Removal Supraglottic Nasopharyngeal Size: 32 11/12/16 0821 by Fr; Inserted by: TENA Chopra Implanted Port - Single 11/04/15; 0859; 11/04/15 0859 by Lumen (non-apheresis) infraclavicular fossa, Premo, Cher A, right; power injectable RN port; superior vena cava; Dr. Jayson Dias; Lot # [id number], Ref # [id number] Incision 05/28/13; 1512; hip; 05/28/13 1512 by 02/05/22 1 715 by 02/05/22 (LDA cleanup Mariposa Smith Torres, Dierdre L utility RA#[id number]); 1715 M, RN (LDA cleanup utility RA#[id number]) Incision 04/10/16; 1018; hip; 04/10/16 1018 by 02/05/22 1 715 by 02/05/22 (LDA cleanup Richard Reynaga Melissa, Dierdre L utility RA#[id number]); 1715 R, RN (LDA cleanup utility RA#[id number]) documented in this encounter Social History Tobacco Use Types Packs/Day Years Used Date Never Smoker Smokeless Tobacco: Never Used Alcohol Use Standard Drinks/Week Comments No 0 (1 standard drink = 0.6 oz pure alcoho l) Sex Assigned at Date Recorded Not on file documented as of this encounter OR Notes Anesthesia Postprocedure Evaluation - Tash Villagomez MD - 11/12/2016 9:34 AM EDT [facility] Department of Anesthesiology Post-procedure Note Patient: Bucky Acevedo Procedure Summary Date Anesthesia Start Anesthesia Stop Room / Location 11/12/16 0807 0830 [facility] / [facility] Procedure Diagnosis Surgeon Responsible Provider COLONOSCOPY, DIAGNOSTIC (N/A Trunk) Durand's esophagus (anemia; (consult)) Rhiannon Headley MD Schroeck, Hedwig, MD All Anesthesia Providers: Anesthesiologist: Tash Villagomez MD MODEL MAKER SCALE: Sophia Chopra CRNA Last (1hr) Vitals: BP 145/69 (11/12/16 0900) Temp Pulse Resp 16 (11/12/16 0900) SpO2 98 % (11/12/16 09) Patient Location: PACU/[facility] Level of Consciousness: Awake and Alert Pain Management: Satisfactory Analgesia PONV: None Cardiovascular Status: At Baseline and Hemodynamically Stable Respiratory Status: At Baseline and Room Air Postoperative Fluid Status: Intravascular EUvolemia Possible Anesthetic Complications: NONE apparent at time of evaluation Final Primary Anesthesia Type: General (The anesthetic type performed was the same as planned.) Comments: TASH VILLAGOMEZ MD Anesthesia Preprocedure Evaluation - Tash Villagomez MD - 11/11/2016 4:36 PM EDT Images from the original note were not included. Pre-Anesthesia Evaluation for: Bucky Acevedo a 56 y.o. male. Procedure(s): COLONOSCOPY, DIAGNOSTIC Patient Active Problem List Diagnosis ??? Gout ??? Myositis ??? Imbalance ??? Skin rash ??? 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 Nonalcoholic steatohepatitis (HORTON) ??? Anemia BMBX was negative. Unclear cause. Either anemia of chronic disease or possibly due to renal insufficiency and decreased epo production. ??? Hepatosplenomegaly US abdomen ??? Nausea and vomiting ??? Diabetes mellitus, type II ??? Myopathy Statin induced autoimmune myopathy (anti-HMGCR) ?? Used to see Dr. Bucky Marie @ [facility] ?? Initial work up and differential diagnosis ?? Onset: late 2008, pain in back & RLE, progressive weakness with walking in setting of being on statin x about 9 years ?? Jun 2009: progressive muscle weakness ?? No improvement with stopping statin & oral prednisone -> further work [place] for myopathy -> [place] [address] ?? Muscle Bx @ [facility] Jul 2009 (Dr. Gleason) c/w necrotizing myopathy (cannot rule out inclusion body myositis) ?? Bx reviewed by Dr. Ricardo in [place], consistent with necrotizing myopathy without significant infalmmation ?? Treated with IVIG & steroids, improved some but relapsed more than once ?? --> immune mediated necrotizing myopathy suspected (statin induced vs paraneoplastic) ?? Paraneoplastic work up negative ?? Immunotherapy: ?? Was on prednisone previously, then MTX and monthly IVIG infusions ?? IVIG seemed to be the only effective treatment ?? Workup: ?? TPMT enzyme activity 08/2009 normal ?? Myositis Antibody Panel Plus 06/2009 negative (anti-Kiesha, PM/SCL, DC-2, PL-7, PL-12, EJ, OJ KU, U2 SN BRIM GREASER OPERATOR, SRP) ?? mitochondrial mutations: Absence of all screened point mtDNA mutations and deletions associated with neuromuscular disorders. 2012 ?? Was off IVIG from Apr 2012 - Jul 2012, no change in muscle strength ?? IVIG restarted, 2 days IVIG per month, on MTX 15mg qweekly ?? Weakness stabilized, improved a bit on exam (3/5 proximal LEs) August 2013 ?? Has exam findings of distal LE sensory deficits consistent with diabetic neuropathy (very poorly controlled DM) ?? Stopped MTX in summer (seen in [place] for this decision) but stopped seeing Dr. Olivera ?? C/o back pain ?? 4/5 proximal LE strengths ?? Still on IVIG 2 days / month September - October 2013 ?? CK 719 (09/11) --> 664 (09/29) ?? (+) port-induced thrombosis. IVIG discontinued, placed on coumadin Mar 2014 ?? CK 3555 (03/17). Main complaint = low back pain Jun - Jul 2014 ?? Worsening weakness, hard to do stairs ?? CK 8581 -> IVIG x 5 days inpatient (07/09 - 07/13), started on cellcept 250mg daily ?? CK 6277 prior to discharge on 07/12 ?? CK 8738 on 07/29, mild weakness in LUE, and worsened severe weakness in hip flexors compared to the time of discharge ?? Plan titrate cellcept up to 1000mg BID (schedule given to patient) ?? CK on 08/05 (prior to 2 days of IVIG) was 5720, A1c 6.4 ?? Anti HMGCR Ab positive at titer value >200 (negative <20, strongly positive >=60), repeat muscle biopsy deferred August 2014 ?? Case presented at muscle meeting, admitted to initiate Rituxan and stop IVIG as weakness worse ?? CK 4393 (08/17), 4329 (08/25) ?? Developed diarrhea with cellcept, stopped ?? Rituxan started on 08/18 (4 weekly doses for induction to be completed on 09/15) Plan: ?? Check CD19 level 1 month after the last Rituxan induction dose ?? Rituxan to be given Q3-6 months based on CD19 level REFERENCES: Curr Opin Rheumatol. 2010;23(6):612-9. doi: 10.1097/BOR.[id number]. Necrotizing autoimmune myopathy. Navya Kerr. Muscle Nerve. 2009;41(2):185-90. doi: 10.1002/mus.49909. Immune-mediated necrotizing myopathy associated with statins. Lewis P1, Dominik HANSEN, Cynthia SA, Keith J, Julissa J, Davion AA. Past Medical History: Diagnosis Date ??? Cirrhosis ??? Diabetes ??? DM II (diabetes mellitus, type II), controlled ??? Gout ??? Hyperlipidemia ??? Hypertension ??? Kidney stone ??? 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 Obesity ??? Shingles 2010 Past Surgical History: Procedure Laterality Date ??? LITHOTRIPSY ??? MUSCLE BIOPSY 2008 ? ? PRG GI TRACT IMAGING, INTRALUMINAL, ESOPHAGUS THROUGH ILEUM, W INTERP & REPORT N/A 08/02/2016 VIDEO CAPSULE ENDOSCOPY performed by Bucky Pryor MD at [facility] ??? PRO BONE MARROW ASPIRATION W/BX THROUGH SAME INCISION/SITE 05/28/2013 ([facility]) BONE MARROW ASP PERFORMED W/BX THRU BX INCISION performed by Alem Evangelista MD at [facility] ??? PRO BONE MARROW ASPIRATION W/BX THROUGH SAME INCISION/SITE Right 04/10/2016 ([facility]) BONE MARROW ASP PERFORMED W/BX THRU BX INCISION performed by Jayden Ignacio MD at [facility] ??? PRO BONE MARROW BX, NEEDLE/TROCAR 05/28/2013 ([facility]) BONE MARROW,BIOPSY performed by Alem Evangelista MD at [facility] ??? PRO BONE MARROW BX, NEEDLE/TROCAR Right 04/10/2016 ([facility]) BONE MARROW,BIOPSY performed by Jayden Ignacio MD at [facility] ??? PRO COLONOSCOPY, DIAGNOSTIC 07/21/2013 COLONOSCOPY, DIAGNOSTIC performed by Royer Temple MD at [facility] ??? PRO ENDOSCOPIC US EXAM, ESOPH 07/21/2013 UPPER EUS- ENDOSCOPIC ULTRASOUND performed by Royer Temple MD at [facility] ??? PRO UPPER GI ENDOSCOPY, BIOPSY 07/21/2013 UPPER GASTROINTESTINAL ENDOSCOPY,WITH BIOPSY SINGLE OR MULTIPLE performed by Royer Temple MD at [facility] ??? PRO UPPER GI ENDOSCOPY, DIAGNOSTIC N/A 08/30/2015 EGD, UPPER GI ENDOSCOPY performed by Anastasia Mccauley MD at [facility] ??? PRO UPPER GI ENDOSCOPY, DIAGNOSTIC N/A 08/02/2016 EGD, UPPER GI ENDOSCOPY performed by Bucky Pryor MD at [facility] ??? TUNNELED VENOUS PORT PLACEMENT Jun 2012 ??? TUNNELED VENOUS PORT PLACEMENT ??? TUNNELED VENOUS PORT PLACEMENT 2011 ??? UMBILICAL HERNIA REPAIR ??? URETER STENT PLACEMENT renal stent Social History Substance Use Topics ??? Smoking status: Never Smoker ??? Smokeless tobacco: Never Used ??? Alcohol use No History Drug Use No Allergies Allergen Reactions ??? Methotrexate Hives, Itching and Rash ??? Morphine Itching ??? Nenqakj-Bua-Pgc Reductase Inhibitors Myopathy Medications: MAR and/or home medications have been reviewed. Physical Exam: There were no vitals filed for this visit. There is no height or weight on file to calculate BMI. Airway Assessment: Mallampati: IV TM distance: >3 FB Neck ROM: full Thick neck, abundant soft tissue Cardiovascular Assessment: cardiovascular exam normal Pulmonary Assessment: breath sounds clear to auscultation (+) decreased breath sounds Dental Assessment: Misc Assessment: IV access: Central line Anesthesia Plan: ASA 3 MAC, with a(n) intravenous induction 56yoM with anemia for colonoscopy. PMH includes obesity, IDDM, Durand's esophagos, statin-induced myopathy GERD - controlled. NPO. No recent change in health or acute illness. Denies SOB/PNA/URI. Plan: Propofol IV with pauma airway, LMA or ETT as backup. The patient verbalized understanding of the anesthesia plan including risks and alternatives and agreed to proceed. All questions were answered. Axel Villagomez MD. Region - Other Informed Consent: Anesthetic plan and risks discussed with patient. Plan discussed with MODEL MAKER SCALE and attending. PAT Staff Note documented in this encounter Plan of Treatment Upcoming Encounters Date Type Specialty Care Team Description 06/19/2022 Office Visit Rheumatology Richi Blackmon MD [facility] DR RHEUMATOLOGY [place] [phone] (Wo rk) Scheduled Procedures Name Priority Associated Diagnoses Date/Time EGD, UPPER GI ENDOSCOPY Family hx of colon cance r COLONOSCOPY, DIAGNOSTIC Family hx of colon cance r documented as of this encounter Visit Diagnoses Not on filedocumented in this encounter Administered Medications Inactive Administered Medications - up to 3 most recent administrations Medication Order MAR Action Action Date Dose Rate Site dexmedetomidine (PRECEDEX) Given 11/12/2016 8:22 AM EDT 4 mcg injection PRN, Starting on Sat11/12/16 at 0814, Until Sat11/12/16 at 0830, Anesthesia Intra-op, Routine Given 11/12/2016 8:14 AM EDT 4 mcg lactated Ringers infusion New Bag 11/12/2016 8:07 AM EDT CONTINUOUS PRN, Starting on Sat11/12/16 at 0807, Until Sat11/12/16 at 0830, Anesthesia Intra-op propofol (DIPRIVAN) 10 mg/mL bolus injection Given 7 8:12 AM EDT 50 mg (Anesthesia) PRN, Starting on Sat11/12/16 at 0812, Until Sat11/12/16 at 0830, Anesthesia Intra-op propofol (DIPRIVAN) Rate/Dose 11/12/2016 8:22 75 mcg/kg/min 55.1 mL/ hr infusion Change AM EDT CONTINUOUS PRN, Starting on Sat11/12/16 at 0812, Until Sat11/12/16 at 0830, Anesthesia Intra-op, Routine New Bag 11/12/2016 8:12 AM EDT 150 mcg/kg/min 110.3 mL/hr documented in this encounter Care Teams Meeting Facilitator Relationship Specialty Start Date End Date Jazmine Baer MD PCP - General 11/07/10 [address] [place] [address] documented as of this encounter
--- OUTSIDE RECORDS SUMMARY | 2022-04-11 10:51 | XMS_ITS | Encounter Summary ---
:1960 Author Organization [facility] [place] [address] Care Team Providers Name Role Phone Jazmine Baer MD Primary Care Provider Reason for Visit Reason Comments IV Medication Procrit injection Encounter Details Date Type Department Care Team Description 06/07/2017 Infusion Hematology Oncology at [facility], unspecified type [address] [phone] Social History Tobacco Use Types Packs/Day Years Used Date Never Smoker Smokeless Tobacco: Never Used Alcohol Use Standard Drinks/Week Comments No 0 (1 standard drink = 0.6 oz pure alcoho l) Sex Assigned at Date Recorded Not on file documented as of this encounter Progress Notes Anjali Barriga, RN - 06/07/2017 12:00 PM EST Infusion Note Diagnosis: Anemia due to CKD Treatment: Procrit Injection Procrit 20,000 injected in Left arm. Patient aware to call clinic with any questions or concerns. Plan: Return to clinic as scheduled. documented in this encounter Plan of Treatment Upcoming Encounters Date Type Specialty Care Team Description 06/19/2022 Office Visit Rheumatology Richi Blackmon MD [facility] DR RHEUMATOLOGY [place], [place] [address] (Wo rk) Scheduled Procedures Name [...] Date Dose Rate Site epoetin matt Given 06/07/2017 12:00 PM 20,000 Units L eft Arm (EPOGEN;PROCRIT) injection EST 20,000 Units 20,000 Units, Intravenous, ONCE, 1 dose, On Sat06/07/17 at 1200, Routine, What is the indication of use? 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
--- OUTSIDE RECORDS SUMMARY | 2022-04-11 10:51 | XMS_ITS | Encounter Summary ---
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; [facility] Type 2 diabetes mellitus wit hout complication, with long-[place] [id number] Social History Tobacco Use Types Packs/Day Years Used Date Never Smoker Smokeless Tobacco: Never Used Alcohol Use Standard Drinks/Week Comments No 0 (1 standard drink = 0.6 oz pure alcoho l) Sex Assigned at Date Recorded Not on file documented as of this encounter Plan of Treatment Upcoming Encounters Date Type Specialty Care Team Description 06/19/2022 Office Visit Rheumatology Richi Blackmon MD [facility] RHEUMATOLOGY [place], [place] [address] (Wo rk) Scheduled Procedures Name Priority Associated Diagnoses Date/Time EGD, UPPER GI ENDOSCOPY Family hx of colon cance r COLONOSCOPY, DIAGNOSTIC Family hx of colon cance r documented as of this encounter Procedures Procedure Name Priority Date/Time Associated Comments Diagnosis HEMOGRAM Routine 04/11/2017 9:59 AM Results f or this EDT procedure are i n the results section. DIFFERENTIAL, Routine 04/11/2017 9:59 AM Results for this AUTOMATED EDT procedure are i n the results section. PROTHROMBIN TIME Routine 04/11/2017 9:59 AM Liver cirrhosis Re sults for this EDT secondary to HORTON procedure are in the results section. HEMOGLOBIN A1C Routine 04/11/2017 9:59 AM Liver cirrhosis Resu lts for this EDT secondary to CATINA H procedure are in Type 2 diabetes the results mellitus without section. complication, with long-term current use of insulin COMPREHENSIVE Routine 04/11/2017 9:59 AM Liver cirrhosis Resul ts for this METABOLIC PANEL EDT secondary to HORTON procedu re are in (NON-FASTING) the results section. documented in this encounter Results Differential, Automated (04/11/2017 9:59 AM EDT) athologist Signature Neutrophils % 65.8 % [facility] Neutr Abs (ANC) 3.51 1.70 - [facility] 6.10 [facility] x10(3)/[facility] LABORATORY Lymphocytes % 18.2 % [facility] Lymphocytes Abs 1.0 0.9 - 3.2 [facility] x10(3)/[facility] LABORATORY Monocytes % 7.9 % [facility] Monocyte Abs 0.4 0.3 - 0.9 [facility] x10(3)/[facility] LABORATORY Eosinophils % 6.6 % [facility] Eosinophils Abs 0.4 0.0 - 0.4 [facility] x10(3)/[facility] LABORATORY Basophils % 1.1 % [facility] Basophils Abs 0.1 0.0 - 0.1 [facility] x10(3)/[facility] LABORATORY Immature Gran % 0.40 % [facility] Comment: Immature granulocytes(IG's)percentage an d absolute count will include metamyelocytes, myelocytes, and promyelo cytes. Blood smears from CBCs yielding IG's will be scanned manually for concor dance. If this scan disagrees with the automated IG or if promyelocytes are not ed, a manual differential will be performed. Tamara Gran Abs 0.02 0.00 - 0.04 x10(3)/[facility] LABOR[facility] Specimen Anatomical Collection Method Collection Time Receive d Time (Source) Location / / Volume Laterality Blood specimen Venous Draw / 04/11/2017 9:59 AM 2016 (specimen) Unknown EDT 11:21 AM EDT Resulting Agency Comment Spec In Lab Rhiannon Headley MD HEMATOLOGY ORDERABLES Performing Organization Address City/State/ZIP Code Phon e Number [address] (ABNORMAL) Hemogram (04/11/2017 9:59 AM EDT) Analysis Performed At Patho logist Time Signature WBC 5.3 4.0 - 9.5 [facility] x[facility] LABORATORY RBC 3.22 (L) 4.58 - [place] 5.54 [facility] x10(6)/[facility] LABORATORY Hemoglobin 10.3 (L) 13.7 - [facility] 16.5 gm/dL [facility] Hematocrit 30.7 (L) 40.5 - [facility] 48.5 % [facility] MCV 95.3 (H) 82.9 - [facility] 93.1 [facility] LABORATORY MCH 32.0 27.5 - [place] 32.1 pg [facility] MCHC 33.6 32.0 - [place] 35.7 gm/dL [facility] Platelets 69 (L) 145 - 357 [facility] x10(3)/[facility] LABORATORY RDWSD 58.2 (H) 36.0 - [facility] [place] 45.0 [facility] LABORATORY RDWCV 16.8 (H) 11.4 - [facility] [place] 13.8 % [facility] MPV 13.3 (H) 7.6 - 12.9 [facility] nRBC % Auto 0.0 % [facility] nRBC Abs Auto 0.000 0.000 - [place] 0.000 [facility] x10(3)/[facility] LABORATORY Specimen Anatomical Collection Method Collection Time Receive d Time (Source) Location / / Volume Laterality Blood specimen Venous Draw / 04/11/2017 9:59 AM 2016 (specimen) Unknown EDT 11:21 AM EDT Resulting Agency Comment Spec In Lab Rhiannon Headley MD HEMATOLOGY ORDERABLES Performing Organization Address City/State/ZIP Code Phon e Number [address] Prothrombin Time (04/11/2017 9:59 AM EDT) athologist Signature PT 13.9 11.8 - 14.0 [facility] LABORATORY Comment: An INR <2.0 indicates adequate [...] be appropriate depending on c linical circumstances. INR 1.1 0.9 - 1.1 [facility] LABOR[facility]ORY Specimen Anatomical Collection Method Collection Time Receive d Time (Source) Location / / Volume Laterality Blood specimen 04/11/2017 9:59 AM 017 (specimen) EDT 10:04 AM EDT Resulting Agency Comment Spec In Lab Rhiannon Headley MD HEMATOLOGY ORDERABLES Performing Organization Address City/State/[place] [address] (ABNORMAL) Comprehensive metabolic panel (non-fasting) (04/11/2017 9:59 AM EDT) athologist Signature Glucose Lvl 232 (H) 65 - 199 [facility] mg/dL [facility] Comment: Diabetes: >=200 mg/dL plus symp toms BUN 46 (H) 10 - 20 mg/dL [facility] Creatinine 1.67 (H) 0.80 - 1.50 mg/dL [facility] Sodium 136 135 - 145 mmol/L [facility] Potassium 4.4 3.5 - 5.0 mmol/L [facility] Comment: Please note: ??Patients with WBC >100,00 0 may have falsely elevated Potassium levels. ??For accurate Potassium quantif ication in these patients send serum separator tube (gold top) for subsequent determinations. ??Contact the Clinical Chemistry Laboratory if there are any qu estions. Chloride 99 98 - 107 mmol/L [facility] CO2 21 (L) 22 - 31 mmol/L [facility] Anion Gap 16 (H) 5 - 15 mmol/L [facility] Calcium 9.5 8.5 - 10.5 mg/dL [facility] Total Protein 8.7 (H) 6.1 - 8.0 gm/dL [facility] LABORATORY Albumin 3.7 3.2 - 5.2 gm/dL [facility] AST 22 0 - 39 unit/L [facility] ALT 21 0 - 55 unit/L [facility] Alk Phos 117 40 - 120 unit/L [facility] Total Bilirubin 0.5 0.2 - 1.3 mg/dL [facility] Estimated GFR 42 (L) >=60 [facility] Comment: The reported eGFR should be multiplied b y 1.2 for patients. The MDRD is not an appropriate measure o f renal function for patients with body mass extremes or in patients with acute kidney failure. http://[employer]/DHnkdep http://[employer]/DHMCnkf Specimen Anatomical Collection Method Collection Time Receive d Time (Source) Location / / Volume Laterality Blood specimen 04/11/2017 9:59 AM 017 (specimen) EDT 10:04 AM EDT Resulting Agency Comment Spec In Lab Rhiannon Headley MD CHEMISTRY ORDERABLES Performing Organization Address City/State/[place] [address] (ABNORMAL) Hemoglobin A1c (04/11/2017 9:59 AM EDT) Analysis Performed At Patho logist Time Signature Hemoglobin A1C 7.8 (H) 4.3 - 5.6 [facility] Comment: Reference Range: 4.3 - 5.6% 5.7 - 6.4% - Increased Risk of Developin g Diabetes Mellitus >=6.5% - Consistent with diagnosis of Di abetes Mellitus In the absence of hyperglycemia (i.e. pl asma glucose > 200 mg/dL) or classic symptoms of hyperglycemia a repeat measu rement of HbA1c should be performed on a separate sample to confirm the diagnos is. Diagnosis and Classification of Diabetes Mellitus, Diabetes Care 2013; 36: Suppl. 1, S67-22 Est Avg Gluc 177 mg/dL [facility] Comment: eAG equivalents for HbA1c percentages: HbA1c(%) ?eAG(mg/dL) 6.0 ?126 6.5 ?140 7.0 ?154 7.5 ?169 8.0 ?183 8.5 ?197 9.0 ?212 9.5 ?226 10.0 ? 240 Limitations: The eAG calculation has not been validated on women, individuals below 18 years old and above 70 years old, and individuals with hemoglobinopathies. Additional resources are available on ADA website. José FLORES, Chaz J, Jeff R, et al. ??Tr anslating the A1C assay into estimated average glucose values. ??Diabetes Care 2008:31(8):3657-8699. 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
--- OUTSIDE RECORDS SUMMARY | 2022-04-11 10:51 | XMS_ITS | Encounter Summary ---
:1960 Author Organization [facility] [place] [address] Care Team Providers Name Role Phone Jazmine Baer MD Primary Care Provider Reason for Referral Consultation (Routine) - Closed Specialty Diagnoses / Procedures Referred By Contact Refer red To Contact General Surgery Diagnoses Myositis of other site, unspecified myositis type Idiopathic gout, unspecified chronicity, unspecified site Akash Prieto MD [facility] Gen Surgery 4l [facility] D [facility] [place] [address] [place] [address] Fax: Referral ID Status Reason Start Date Expiration Date Visits V isits Requested Authorized [id number] Closed Consult, 10/05/2016 10/05/2017 1 1 Test & Treat Reason for Visit Reason Comments Follow-up Encounter Details Date Type Department Care Team Description 10/05/2016 Office Visit Rheumatology at [facility] Akash Prieto, Myositis of other site, unsp ecified myositis type; [facility] Idiopathic gout, unspecified chronicity, [place] [address] CENTER [phone] RHEUMATOLOGY DEPT. [place], [place] [address] Social History Tobacco Use Types Packs/Day Years Used Date Never Smoker Smokeless Tobacco: Never Used Alcohol Use Standard Drinks/Week Comments No 0 (1 standard drink = 0.6 oz pure alcoho l) Sex Assigned at Date Recorded Not on file documented as of this encounter Last Filed Vital Signs Vital Sign Reading Time Taken Comments Blood Pressure 146/57 10/05/2016 10:09 AM EDT Pulse 73 10/05/2016 10:09 AM EDT Temperature - - Respiratory Rate 18 10/05/2016 10:09 AM EDT Oxygen Saturation 100% 10/05/2016 10:09 AM EDT Inhaled Oxygen Concentration - - Weight 124.7 kg (275 lb) 10/05/2016 10:09 AM EDT Height 175.3 cm (5' 9) 10/05/2016 10:09 AM EDT Body Mass Index 40.61 10/05/2016 10:09 AM EDT documented in this encounter Progress Notes Akash Prieto MD - 10/05/2016 10:30 AM EDT The patient is a 56-year-old male with 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 CK initially in the 10,000 to 11,000 range and he got partial response from IVIG 1 gram/kg twice on 2 successive days each month. CK has been trending down and most recently on 09/11, he had a CK of 75 and I think he is in remission from his myositis. His 2nd problem is gout. 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 He is on allopurinol. He has not had a gout attack and his most recent uric acid is 7.5. The previous time he got IVIG was 09/11 and 09/12. He is getting another one on 10/11 and 10/12. He gets IVIG 1 gram/kg on 2 successive days each month. He gets Solu-Medrol 1 day a month and is 1 gram. In the interim, he is off prednisone altogether and his functional level is pretty good. He walks without any assistive devices within the house. He has a cane for use around the yard, and he has a walker for small stores and electric wheelchair for big malls. His diabetes is under reasonable control with a hemoglobin A1c of 6.4 last measured. PHYSICAL EXAM: He is healthy appearing, upbeat. His blood pressure is 146/57, pulse 73, respirations 18, pulse ox 100. Height is 69 inches, weight is 275. His BMI is 40.7. On exam, his strength is excellent in his hands. 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 His proximal upper extremity strength is completely normal. His proximal lower extremity strength is very weak. He cannot get out of the chair without assistance. I think his myositis is as close to remission as we are going to get. 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 I spent most of the time talking to him about weight. It is unlikely that he is going to lose weight with a diet, even though I put him on an Atkins diet. I referred him to Bariatric Surgery, because I think that weighing the risks and benefits, he is probably an excellent candidate. documented in this encounter Plan of Treatment Upcoming Encounters Date Type Specialty Care Team Description 06/19/2022 Office Visit Rheumatology Richi Blackmon MD [facility] DR RHEUMATOLOGY [place], [place] [address] (Wo rk) Scheduled Procedures Name Priority Associated Diagnoses Date/Time EGD, UPPER GI ENDOSCOPY Family hx of colon cance r COLONOSCOPY, DIAGNOSTIC Family hx of colon cance r Scheduled Referrals Name Type Priority Associated Diagnoses Order S chedule Referral to Outpatient Referral Routine Myositis of other Ord ered: Bariatric Surgery site, unspecified 10/05 Program myositis type Idiopathic gout, unspecified chronicity, unspecified site documented as of this encounter Visit Diagnoses Diagnosis Myositis of other site, unspecified myos itis type Idiopathic gout, unspecified chronicity, unspecified site documented in this encounter Care Teams Diesel Powerplant Supervisor Relationship Specialty Start Date End Date Jazmine Baer MD PCP - General 11/07/10 [address] [place] [address] documented as of this encounter
--- OUTSIDE RECORDS SUMMARY | 2022-04-11 10:51 | XMS_ITS | Encounter Summary ---
:1960 Author Organization [facility] Address [facility] [place] [address] Care Team Providers Name Role Phone Jazmine Baer MD Primary Care Provider Encounter Details Date Type Department Care Team Description 01/08/2017 Office Visit Rheumatology at [facility] Akash Prieto, Iron deficiency [facility] anemia due to chronic [address] [place] [phone] [place] [address] RHE[address] DEPT[address] [place], [place] [address] Social History Tobacco Use Types Packs/Day Years Used Date Never Smoker Smokeless Tobacco: Never Used Alcohol Use Standard Drinks/Week Comments No 0 (1 standard drink = 0.6 oz pure alcoho l) Sex Assigned at Date Recorded Not on file documented as of this encounter Last Filed Vital Signs Vital Sign Reading Time Taken Comments Blood Pressure 128/43 01/08/2017 11:07 AM EDT Pulse 63 01/08/2017 11:07 AM EDT Temperature 36.9 ??C (98.4 ??F) 01/08/2017 11:07 AM EDT Respiratory Rate - - Oxygen Saturation 100% 01/08/2017 11:07 AM EDT Inhaled Oxygen Concentration - - Weight 122 kg (269 lb) 01/08/2017 11:07 AM EDT Height 175.3 cm (5' 9) 01/08/2017 11:07 AM EDT Body Mass Index 39.72 01/08/2017 11:07 AM EDT documented in this encounter Progress Notes Akash Prieto MD - 01/08/2017 11:30 AM EDT The patient is a 56-year-old male with statin-induced myopathy from 2008, with positive SRMP6 antibodies to HMG-CoA reductase enzyme. The CK was initially in the 10-11,000 range and he got a partial response from IVIG, 1 g/kg twice on 2 successive days each month. The CK has been trending down most recently and his most recent CK has been 117. He is much better. He is able to take care of himself continuously with regard to normal ADLs and also was able to walk with a walker for 2-1/2 hours at a fair when he took his grandchildren. His second problem is gout. He has had no gout attacks and his uric acid is 6.2. One of the issues we discussed is his persistent anemia. His hematocrit is in the 25 range with no clear-cut explanation. Looking back at the workup he has had a negative bone marrow, but because of his renal insufficiency with a creatinine of 1.42, it is thought that he might have either the anemia of chronic disease or he might be erythropoietin deficient. Today, I measured his erythropoietin levels and they are pending at the time of this dictation. His diabetes is overall in better control and he has lost some pounds. His BMI is below 40 for the first time. Lastly, he was noted to have a murmur and had an echocardiogram and is referred to cardiology. Not sure what the echo showed, but my exam it sounds like a flow murmur. His strength exam is completely normal for upper extremities. 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 His lower extremities, his proximal strength is still a little weak, probably having to do with a steroid myopathy or residual muscle atrophy from the previous active statin myopathy, which is no longer active. I will follow up in 3 months. documented in this encounter Plan of Treatment Upcoming Encounters Date Type Specialty Care Team Description 06/19/2022 Office Visit Rheumatology Richi Blackmon MD [facility] [address] RHEUMATOLOGY [place], [place] [address] (Wo ) Scheduled Procedures Name Priority Associated Diagnoses Date/Time EGD, UPPER GI ENDOSCOPY Family hx of colon cance r COLONOSCOPY, DIAGNOSTIC Family hx of colon cance r documented as of this encounter Procedures Procedure Name Priority Date/Time Associated Comments Diagnosis ERYTHROPOIETIN LEVEL Routine 01/08/2017 12:44 Iron deficiency Results for this PM EDT anemia due to procedure are in chronic blood loss the resul ts section. documented in this encounter Results (ABNORMAL) Erythropoietin Level (01/08/2017 12:44 PM EDT) [facility] gist Method Time Signature Erythropoietin 19.1 (H) 2.6 - 18.5 [facility] mIU/mL [facility] Comment: Test Performed by: [facility] [address] [place] [id number] Specimen Anatomical Collection Method Collection Time Receive d Time (Source) Location / / Volume Laterality Blood specimen 01/08/2017 12:44 7 1:31 (specimen) PM EDT PM EDT Resulting Agency Comment Spec In Lab Akash Prieto MD CHEMISTRY ORDERABLES Performing Organization Address City/State/[place] [address] documented in this encounter Visit Diagnoses Diagnosis 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
--- OUTSIDE RECORDS SUMMARY | 2022-04-11 10:52 | XMS_ITS | Encounter Summary ---
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; [facility] Type 2 diabetes mellitus wit hout complication, with long-term [place] [address] [facility] [phone] [place] [address] Social History Tobacco Use Types Packs/Day Years Used Date Never Smoker Smokeless Tobacco: Never Used Alcohol Use Standard Drinks/Week Comments No 0 (1 standard drink = 0.6 oz pure alcoho l) Sex Assigned at Date Recorded Not on file documented as of this encounter Last Filed Vital Signs Vital Sign Reading Time Taken Comments Blood Pressure 125/55 09/19/2016 1:16 PM EDT Pulse 69 09/19/2016 1:16 PM EDT Temperature - - Respiratory Rate - - Oxygen Saturation - - Inhaled Oxygen Concentration - - Weight 125.7 kg (277 lb 1.6 oz) 09/19/2016 1:16 PM EDT Height 175.3 cm (5' 9) 09/19/2016 1:16 PM EDT Body Mass Index 40.92 09/19/2016 1:16 PM EDT documented in this encounter Progress Notes Rhiannon Simeon MD - 09/19/2016 1:30 PM EDT Gastroenterology and Hepatology Follow Up Note Patient: Bucky Acevedo : 1960 Provider: Rhiannon Simeon MD Problem List: Cirrhosis- 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 ?? Metabolic risk factors: HTN, T2DM, Obese, dyslipidemia. No liver biopsy ? 1st presentation- Elevated liver enzymes since 2009 when he was diagnosed with myositis ?? Complicated with transient HE minimal improvement with RIfaximin (01/2014) ?? No ascites or varices ?- 2. Liver Hemangioma 1.6cm ?? 3. DM2 4. HTN 5. Hypertension ?? 6. Myositis- statin induced myoapthy ?-?? Jun 2014-received IVIg x 2days every month and Solumedrol 7. 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 Gout Preventative Health: 1. HAV/HBV: (+)/(-)- received HBV vaccine 2. Colonoscopy - 07/21/13 hyperplastic polyp. Due again 07/2023 3. Portal HTN: EGD 08/30/15 no varices, no gastropathy 4. HCC Surveillance: US 02/2016: Stable mild hepatomegaly with coarse, echogenic parenchyma, consistent with reportedly known HORTON cirrhosis. 3. Stable 16 mm right hepatic lobe hemangioma, as seen on prior 06/04/2014 MRI abdomen. No new sonographically evident hepatic mass identified. 4. Stable moderate splenomegaly. No ascites. Interval History: Doing ok, muscle pain/weakness tolerable. Lots of fatigue. Current Outpatient Prescriptions Medication Sig Dispense Refill ??? allopurinol (ZYLOPRIM) 100 mg Tablet Take 200 mg by mouth daily. 1 ??? terazosin (HYTRIN) 5 mg Capsule Take 1 capsule by mouth nightly. 3 ??? glipiZIDE (GLUCOTROL XL) 5 mg Tablet Extended Rel 24 hr Take 1 tablet by mouth daily. 3 ??? insulin lispro [...] current facility-administered medications for this visit. Vitals: 09/19/16 1316 BP: 125/55 Pulse: 69 Weight: (!) 125.7 kg (277 lb 1.6 oz) Height: 175.3 cm (5' 9) Body mass index is 40.92 kg/(m^2). Recent Results (from the past 24 hour(s)) Hemoglobin A1c Result Value Ref Range Hemoglobin A1C 6.4 (H) 4.3 - 5.6 % Est Avg Gluc 137 mg/dL Comprehensive metabolic panel (non-fasting) Result Value Ref Range Glucose Lvl 110 65 - 199 mg/dL BUN 29 (H) 10 - 20 mg/dL Creatinine 1.42 0.80 - 1.50 mg/dL Sodium 136 135 - 145 mmol/L Potassium 3.4 (L) 3.5 - 5.0 mmol/L Chloride 100 98 - 107 mmol/L CO2 23 22 - 31 mmol/L Anion Gap 13 5 - 15 mmol/L Calcium 8.8 8.5 - 10.5 mg/dL Total Protein 8.5 (H) 6.1 - 8.0 gm/dL Albumin 2.9 (L) 3.2 - 5.2 gm/dL AST 20 0 - 39 unit/L ALT 14 0 - 55 unit/L Alk Phos 102 40 - 120 unit/L Total Bilirubin 0.8 0.2 - 1.3 mg/dL Bili, Direct 0.2 0.0 - 0.3 mg/dL Estimated GFR 51 (L) >=60 Prothrombin Time Result Value Ref Range PT 15.2 (H) 12.0 - 15.0 sec INR 1.2 (H) 0.9 - 1.1 Hemogram Result Value Ref Range WBC 4.8 4.0 - 9.5 x10(3)/mcL RBC 2.97 (L) 4.58 - 5.54 x10(6)/mcL Hemoglobin 8.4 (L) 13.7 - 16.5 gm/dL Hematocrit 25.6 (L) 40.5 - 48.5 % MCV 86.2 82.9 - 93.1 fL MCH 28.3 27.5 - 32.1 pg MCHC 32.8 32.0 - 35.7 gm/dL Platelets 120 (L) 145 - 357 x10(3)/mcL RDWSD 50.9 (H) 36.0 - 45.0 fL RDWCV 17.1 (H) 11.4 - 13.8 % MPV 11.2 7.6 - 12.9 fL nRBC % Auto 0.4 % nRBC Abs Auto 0.020 (H) 0.000 - 0.000 x10(3)/mcL Differential, Automated Result Value Ref Range Neutrophils % 66.4 % Neutr Abs (ANC) 3.21 1.70 - 6.10 x10(3)/mcL Lymphocytes % 16.7 % Lymphocytes Abs 0.8 (L) 0.9 - 3.2 x10(3)/mcL Monocytes % 13.2 % Monocyte Abs 0.6 0.3 - 0.9 x10(3)/mcL Eosinophils % 2.5 % Eosinophils Abs 0.1 0.0 - 0.4 x10(3)/mcL Basophils % 0.8 % Basophils Abs 0.0 0.0 - 0.1 x10(3)/mcL Immature Gran % 0.40 % Tamara Gran Abs 0.02 0.00 - 0.04 x10(3)/mcL Exam: Looks well Anicteric Abd- protuberant, non tender Ext- no edema MRI today- no liver lesions Assessment and Plan: 56 y.o. male with cirrhosis due to HORTON [...] Iron deficiency- -EGD/capsule were negative 07/2016 -Continue iron. -Repeat colonoscopy -Anemia in part is likely due to chronic disease HORTON- -Continue to treat diabetes- good control now -Weight loss on low carb diet. -[place] 3 fatty acids for hypertriglyceridemia Cirrhosis- US in 6 mos for HCC screening EGD- 2015 no varices, no gastropathy. Repeat in 3 years. Rhiannon Simeon MD Section of Gastroenterology & Hepatology [address] [place], [place] [id number] Greater than 50% of this 30 minute visit was spent in discussion. Cc: Jazmine Baer MD documented in this encounter Plan of Treatment Upcoming Encounters Date Type Specialty Care Team Description 06/19/2022 Office Visit Rheumatology Richi Blackmon MD [facility] [address] RHEUMATOLOGY [place] [address] (Wo rk) Scheduled Procedures Name Priority Associated Diagnoses Date/Time EGD, UPPER GI ENDOSCOPY Family hx of colon cance r COLONOSCOPY, DIAGNOSTIC Family hx of colon cance r documented as of this encounter Results Prothrombin Time (04/11/2017 9:59 AM EDT) athologist Signature PT 13.9 11.8 - 14.0 [facility]AT[facility] Comment: An INR <2.0 indicates [...] linical circumstances. INR 1.1 0.9 - 1.1 [facility] Specimen Anatomical Collection Method Collection Time Receive d Time (Source) Location / / Volume Laterality Blood specimen 04/11/2017 9:59 AM 017 (specimen) EDT 10:04 AM EDT Resulting Agency Comment Spec In Lab Rhiannon Simeon MD HEMATOLOGY ORDERABLES Performing Organization Address City/State/[place] [address] (ABNORMAL) Comprehensive metabolic panel (non-fasting) (04/11/2017 9:59 AM EDT) athologist Signature Glucose Lvl 232 (H) 65 - 199 [facility] mg/dL [facility] Comment: Diabetes: >=200 mg/dL plus symp toms BUN 46 (H) 10 - 20 mg/dL [facility] Creatinine 1.67 (H) 0.80 - 1.50 mg/dL [facility] Sodium 136 135 - 145 mmol/L [facility] Potassium 4.4 3.5 - 5.0 mmol/L [facility] Comment: Please note: ??Patients with WBC >100,00 0 may have falsely elevated Potassium levels. ??For accurate Potassium quantif ication in these patients send serum separator tube (gold top) for subsequent determinations. ??Contact the Clinical Chemistry Laboratory if there are any qu estions. Chloride 99 98 - 107 mmol/L [facility] CO2 21 (L) 22 - 31 mmol/L [facility] Anion Gap 16 (H) 5 - 15 mmol/L [facility] Calcium 9.5 8.5 - 10.5 mg/dL [facility] Total Protein 8.7 (H) 6.1 - 8.0 gm/dL [facility] Albumin 3.7 3.2 - 5.2 gm/dL [facility] AST 22 0 - 39 unit/L [facility] ALT 21 0 - 55 unit/L [facility] Alk Phos 117 40 - 120 unit/L [facility] Total Bilirubin 0.5 0.2 - 1.3 mg/dL [facility] Estimated GFR 42 (L) >=60 [facility] Comment: The reported eGFR should be multiplied b y 1.2 for patients. The MDRD is not an appropriate measure o f renal function for patients with body mass extremes or in patients with acute kidney failure. http://vip.com/DHnkdep http://vip.com/DHMCnkf Specimen Anatomical Collection Method Collection Time Receive d Time (Source) Location / / Volume Laterality Blood specimen 04/11/2017 9:59 AM 017 (specimen) EDT 10:04 AM EDT Resulting Agency Comment Spec In Lab Rhiannon Simeon MD CHEMISTRY ORDERABLES Performing Organization Address City/State/[place] [address] (ABNORMAL) Hemoglobin A1c (04/11/2017 9:59 AM EDT) Analysis Performed At Patho logist Time Signature Hemoglobin A1C 7.8 (H) 4.3 - 5.6 [facility] Comment: Reference Range: 4.3 - [...] Mellitus, Diabetes Care 2013; 36: Suppl. 1, S67-74 Est Avg Gluc 177 mg/dL [facility] Comment: eAG equivalents for [...] into estimated average glucose values. ??Diabetes Care 2008:31(8):2435-9845. Specimen Anatomical Collection Method Collection Time Receive d Time (Source) Location / / Volume Laterality Blood specimen 04/11/2017 9:59 AM 017 (specimen) EDT 10:04 AM EDT Resulting Agency Comment Spec In Lab Rhiannon Simeon MD CHEMISTRY ORDERABLES Performing Organization Address City/State/ZIP Code Phon e Number [place] [phone] US Abdomen Limited (04/11/2017 9:11 AM EDT) [...] 09:23 am) PATIENT INFO: ID #: ? [id number] ?: ??[birth year] (57 yrs) Name: ? BUCKY ACEVEDO ? Visit Date: 04/11/2017 09:07 am PERFORMED BY: Performed By: ? Romina GAN, ??Rolando gtz Attending: ?Charito FONSECA, Ezequiel Stout Referred By: ?RHIANNON SIMEON Location: ? [place] SERVICE(S) PROVIDED: ??UABDLIM - Abdominal Limited Survey Si ngle ? [id number] ??Organ or Quadrant - [id number] INDICATIONS: ??Compensated cirrhosis, assess for HCC TECHNIQUE/SCAN [...] ? ? Characterized ? r ?09/19/16) ??1 ?05/27/13 ?Subcapsula ?? Sl ightly ? 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
--- OUTSIDE RECORDS SUMMARY | 2022-04-11 10:52 | XMS_ITS | Encounter Summary ---
:1960 Author Organization [facility] [place] [address] Care Team Providers Name Role Phone Jazmine Baer MD Primary Care Provider Reason for Visit Reason Onset Date Comments Prior Authorization 05/31/2016 AZATHIOPRINE- DENIED Encounter Details Date Type Department Care Team Description 05/31/2016 Telephone Rheumatology at [facility] Ludwig Wood Prior Authorization [facility] (AZATHIOP RINE- DENIED) [place] [address] Social History Tobacco Use Types Packs/Day Years Used Date Never Smoker Smokeless Tobacco: Never Used Alcohol Use Standard Drinks/Week Comments No 0 (1 standard drink = 0.6 oz pure alcoho l) Sex Assigned at Date Recorded Not on file documented as of this encounter Miscellaneous Notes Telephone Encounter - Ludwig Wood - 06/19/2016 9:24 AM EST Azathioprine has been denied under Medicare Part D because The request for asathioprine 50mg is denied because the indciation provided, Myopathy unspecified, is not a medically accepted indication for this medication. Drugs can be approved under Medicare Part D benefit when they are being used for the treatment of medically accepted indications. An appeal can be done by phone [phone] Or [employer] mail Part D Appeals [address] [address] [place] [address] Telephone Encounter - Ludwig Wood - 06/01/2016 10:03 AM EST Called number Dami has listed below and spoke with Sandee. Verbally gave more clinical information that would be submitted immediately for review. Telephone Encounter - Shanthi Pham RN - 05/31/2016 1:00 PM EST Call received from [facility] requesting more information on PA for Azathioprine. Contact# [phone] Ref# [id number] Telephone Encounter - Ludwig Wood - 05/31/2016 11:42 AM EST SENT FAXED PA REQUEST TO [facility] ON AZATHIOPRINE [phone]. WILL WAIT FOR DECISION documented in this encounter Plan of Treatment Upcoming Encounters Date Type Specialty Care Team Description 06/19/2022 Office Visit Rheumatology Richi Blackmon MD [facility] DR RHEUMATOLOGY [place] [address] (Wo rk) Scheduled Procedures Name Priority Associated Diagnoses Date/Time EGD, UPPER GI ENDOSCOPY Family hx of colon cance r COLONOSCOPY, DIAGNOSTIC Family hx of colon cance r documented as of this encounter Visit Diagnoses Not on filedocumented in this encounter Care Teams Carpet Jack Relationship Specialty Start Date End Date Jazmine Baer MD PCP - General 11/07/10 [address] [place] [address] documented as of this encounter
--- OUTSIDE RECORDS SUMMARY | 2022-04-11 10:52 | XMS_ITS | Encounter Summary ---
:1960 Author Organization [facility] [place] [address] Care Team Providers Name Role Phone Jazmine Baer MD Primary Care Provider Encounter Details Date Type Department Care Team Description 08/02/2016 Hospital Encounter [place] [facility] [place], [facility] [place] [address] [facility] [phone] [facility] [place], [place] [address] Social History Tobacco Use Types Packs/Day Years Used Date Never Smoker Smokeless Tobacco: Never Used Alcohol Use Standard Drinks/Week Comments No 0 (1 standard drink = 0.6 oz pure alcoho l) Sex Assigned at Date Recorded Not on file documented as of this encounter Last Filed Vital Signs Vital Sign Reading Time Taken Comments Blood Pressure 139/55 08/02/2016 8:50 AM EST Pulse 58 08/02/2016 8:13 AM EST Temperature - - Respiratory Rate 18 08/02/2016 8:50 AM EST Oxygen Saturation 100% 08/02/2016 8:50 AM EST Inhaled Oxygen Concentration - - Weight - - Height - - Body Mass Index - - documented in this encounter Discharge Instructions Discharge Deja Norwood RN - 08/02/2016 8:14 AM EST Please call [phone] before 8pm with problems, questions or concerns, after 5pm call the Hospital at [phone] and ask to speak to the Cosmetic Account Coordinator slurry control tender and the sealing machine operator will contact that person for you. Discharge instructions reviewed with patient who expresses understanding. You may have received medications before and/or during your procedure which effects your judgement and reaction time. Do not drive, operate machinery, drink alcoholic beverages or make important decisions for 24 hours. Be careful on stairs as you may be unsteady on your feet. You may eat a regular diet as tolerated. Do not smoke if you are alone. IV site: Slight redness or tenderness is normal, you can use a warm compress if you would like. If tenderness and/or redness increase or if foul drainage occurs, please contact your Doctor. AttachmentsThe following attachments cannot be sent through Care Everywhere. COLONOSCOPY: POST-OP (MOHAWK)documented in this encounter Medications at Time of Discharge Medication Sig Dispensed Refills Start Date End Date furosemide (LASIX) 20 mg Take 1 tablet by 30 tablet 12 03/25 TabletIndications: mouth daily. Myopathy multivitamin Capsule Take 1 capsule by 0 mouth daily. allopurinol (ZYLOPRIM) Take 200 mg by 1 7 01/08/2017 100 mg Tablet mouth daily. terazosin (HYTRIN) 5 mg Take 1 capsule by 3 08/0105/02/2021 Capsule mouth nightly. glipiZIDE (GLUCOTROL XL) Take 10 mg by mouth 3 08/29/2017 5 mg Tablet Extended Rel daily. 24 hr predniSONE (DELTASONE) 20 Take 1 tablet by 21 tablet 0 12/201608/30/2016 mg Tablet mouth daily. glipiZIDE (GLUCOTROL XL) TAKE ONE TABLET BY 3 08/30/2016 10 mg Tablet Extended Rel MOUTH EVERY DAY 24 hr ferrous sulfate 324 mg Take 324 mg by 0 07/02/2017 (65 mg iron) Tablet, mouth every other Delayed Release (E.C.) day. indomethacin (INDOCIN) 50 Take 50 mg by mouth 0 0 09/15/2015 10/02/2017 mg Capsule as needed. atenolol (TENORMIN) 50 mg Take 50 mg by mouth 0 10/02/2017 Tablet daily. omeprazole (PRILOSEC) 40 Take 1 capsule by 90 capsule 3 08/0912/25/2017 mg capsule mouth daily. ondansetron (ZOFRAN) 4 mg Take 1 tablet by 20 tablet 3 02/201402/29/2020 tablet mouth as needed. lisinopril-hydrochlorothi Take 2 tablets by 0 05/02/2021 azide mouth daily. (PRINZIDE;ZESTORETIC) 20-12.5 mg per tablet documented as of this encounter Progress Notes Angie Lott RN - 08/02/2016 8:[address] Turcios, pt may drink 0950. D/C 5% dextrose documented in this encounter H&P Notes Bucky Pryor MD - 08/02/2016 7:51 AM EST Gastroenterology and Hepatology Pre-Procedure History and Physical Exam Procedure: EGD: capsule Indication: anemia Patient Active Problem List Diagnosis Code ??? Myopathy G72.9 ??? Nausea and vomiting R11.2 ??? Diabetes mellitus, type II E11.9 ??? Hepatosplenomegaly R16.2 ??? Durand's esophagus K22.70 ??? Nonalcoholic steatohepatitis (HORTON) K75.81 ??? Anemia D64.9 ??? Skin rash R21 ??? Imbalance R26.89 ??? Myositis M60.9 EXAM: HEENT: Airway examined, oropharynx clear Mallampati Score: II (soft palate, uvula, fauces visible) LUNGS: Clear to auscultation HEART: Regular rate and rhythm, normal S1, S2 ABDOMEN: Normal bowel sounds, soft, non tender, non distended, A/P Proceed with the planned endoscopic procedure. ASA 2 - Patient with mild systemic disease with no functional limitations Sedation Plan: moderate (conscious sedation) Risks and benefits of the procedure explained to the patient. Consent signed. documented in this encounter Plan of Treatment Upcoming Encounters Date Type Specialty Care Team Description 06/19/2022 Office Visit Rheumatology Richi Blackmon MD [facility]HE[facility] [place], [place] [address] (Wo rk) Scheduled Procedures Name Priority Associated Diagnoses Date/Time EGD, UPPER GI ENDOSCOPY Family hx of colon cance r COLONOSCOPY, DIAGNOSTIC Family hx of colon cance r documented as of this encounter Procedures Procedure Name Priority Date/Time Associated Comments Diagnosis VIDEO CAPSULE Routine 08/02/2016 4:06 PM Results for this ENDOSCOPY EST procedure are i n the results section. POCT FINGERSTICK Routine 08/02/2016 8:41 AM Resul ts for this GLUCOSE EST procedure are i n the results section. POCT GLUCOSE Routine 08/02/2016 8:39 AM Results f or this EST procedure are i n the results section. VIDEO CAPSULE 08/02/2016 7:50 AM GAVE, evaluate for ENDOSCOPY EST gastropathy; small bowel case for LONNIE EGD, UPPER GI 08/02/2016 7:50 AM GAVE, evaluate for ENDOSCOPY EST gastropathy; small bowel case for LONNIE POCT GLUCOSE Routine 08/02/2016 7:35 AM Results f or this EST procedure are i n the results section. UPPER GI ENDOSCOPY Routine 08/02/2016 7:31 AM Res ults for this EST procedure are i n the results section. POCT GLUCOSE Routine 08/02/2016 7:28 AM Results f or this EST procedure are i n the results section. documented in this encounter Results VIDEO CAPSULE ENDOSCOPY (08/02/2016 4:06 PM EST) [facility] Method Time Signature VIDEO CAPSULE [facility] ENDOSCOPY Endoscopy Procedure Date: 08/02/2016 4:06 PM ? Patient Name: Bucky Acevedo ? Date of : 1960 ? Age: 56 ? Order #: [id number] ? Instrument Name: ? Procedure: ? Video capsule endoscopy Indications: ? Iron deficiency anemia Providers: ? Bucky Pryor MD Referring : ?Jazmine Baer MD Medicines: ? None Complications: ? No immediate complications. Procedure: ? The video capsule endoscopy was ? accomplished without difficul ty. The ? patient tolerated the procedu re well. ? The SensorArray was applied t o the ? patient's abdomen with adhesi ve pads ? and connected to the DataReco rder ? around the waist. The DataRec order ? was checked to ensure green l ight was ? flashing. The patient was the n ? instructed to ingest the M2A capsule ? and provided a glass of water . This ? was accomplished without diff iculty. ? The patient was then given ? instructions for eating and d rinking ? and was instructed to periodi vernon ? monitor the DataRecorder thro ughout ? the day to insure proper santillan smission. ? Approximately eight hours lat er the ? patient returned for removal of the ? SensorArray. ? Findings: ? The capsule was placed into the duodenum and ? traveleled retrograde into stomach ? Passed on its own into small bowel at 1 hour 32 ? minutes ? Small bowel transit time was 4 hours and 41 minutes ? The duodenum was normal. ? The jejunum was normal. ? The ileum was normal. ? Impression: ?- Normal duodenum. ? - Normal jejunum. ? - Normal ileum. ? - Normal video capsule endosc opy. Attending Participation: ? I personally performed the entire procedure. ? Bucky Pryor MD 08/03/2016 4:08:52 PM This report has been signed electronically. Number of Addenda: 0 Note Initiated On: 08/03/2016 4:06 PM Specimen (Source) Anatomical Collection Method Collection Time Re ceived Time Location / / Volume Laterality 08/02/2016 4:06 PM EST Jazmine Baer MD GENERAL SURGICAL ORDERABLES Performing Organization Address City/State/ZIP Code Phon e Number [facility] POCT Fingerstick Glucose (08/02/2016 8:41 AM EST) athologist Signature POC Glucose 103 60 - 199 mg/dl Specimen (Source) Anatomical Collection Method Collection Time Re ceived Time Location / / Volume Laterality 08/02/2016 8:41 AM EST Bucky Pryor MD POINT OF CARE TEST ORDERABLE S POCT Glucose (08/02/2016 8:39 AM EST) athologist Signature POC Glucose 103 65 - 199 [facility] Comment: Supplemental ranges: <140 mg/dL before meals <180 mg/dL all other times of the day Specimen Anatomical Collection Method Collection Time Receive d Time (Source) Location / / Volume Laterality Blood specimen 08/02/2016 8:39 AM 017 8:39 (specimen) EST AM EST Bucky Pryor MD POINT OF CARE TEST ORDERABLE S Performing Organization Address City/State/[place] [address] (ABNORMAL) POCT Glucose (08/02/2016 7:35 AM EST) athologist Signature POC Glucose 52 65 - 199 [facility] (Critical) mg/dL [facility] Comment: Supplemental ranges: <140 mg/dL before meals <180 mg/dL all other times of the day Specimen Anatomical Collection Method Collection Time Receive d Time (Source) Location / / Volume Laterality Blood specimen 08/02/2016 7:35 AM 017 7:35 (specimen) EST AM EST Bucky Pryor MD POINT OF CARE TEST ORDERABLE S Performing Organization Address City/State/[place] [address] UPPER GI ENDOSCOPY (08/02/2016 7:31 AM EST) [facility] gist Method Time Signature UPPER GI [facility] ENDOSCOPY Endoscopy Procedure Date: 08/02/2016 7:31 AM ? Patient Name: Bucky Acevedo ? Date of : 1960 ? Age: 56 ? Order #: [id number] ? Instrument Name: [id number] ? Procedure: ? Upper GI endoscopy Indications: ? Iron deficiency anemia, For capsule ? placement, question GAVE Providers: ? Bucky Pryor MD, Sherry olivera, ? RN, Francia Stephenson, Paloma Acevedo MD: ?Jazmine Baer MD Medicines: ? Midazolam 3 mg IV, Fentanyl 150 ? micrograms IV Complications: ? No immediate complications. Procedure: ? The procedure, indications, benefi ts, ? risks and alternatives were e xplained ? to the patient. Specifically ? discussed were potential ? complications including, but not ? limited to, bleeding, perfora tion, ? infection, missing a cancer, and ? adverse medication reactions. The ? Endoscope was introduced thro [facility] the ? mouth, and advanced to the ird part ? of duodenum. The patient tole rated ? the procedure well. The upper GI ? endoscopy was accomplished wi out ? difficulty. The patient isabella ated the ? procedure well. ? Findings: ? The Z-line was irregular and was found 40 cm from the ? incisors. This was not biopsied today given capsule ? exam ? The stomach was normal. There was no evidence of GAVE . ? The examined duodenum was normal. Capsule was placed ? into duodenum, small amount of heme from placement. ? Impression: ?- Z-line irregular, 40 cm from the ? incisors. ? - Normal stomach. No GAVE ? - Normal examined duodenum. ? - No specimens collected. ? Capsule placed Recommendation: ?Await capsule results ? Can repeat EGD in 2 years for short ? segment Durand's biopsies ? Attending Participation: ? I personally performed the entire procedure. I was ? present during the intraservice time as documented by ? the sedation RN. ? Bucky Pryor MD 08/02/2016 8:20:05 AM This report has been signed electronically. Number of Addenda: 0 Note Initiated On: 08/02/2016 7:31 AM Specimen (Source) Anatomical Collection Method Collection Time Re ceived Time Location / / Volume Laterality 08/02/2016 7:31 AM EST Jazmine Baer MD GENERAL SURGICAL ORDERABLES Performing Organization Address City/State/ZIP Code Phon e Number [facility] (ABNORMAL) POCT Glucose (08/02/2016 7:28 AM EST) athologist Signature POC Glucose 42 65 - 199 [facility] (Critical) mg/dL [facility] Comment: Supplemental ranges: <140 mg/dL before meals <180 mg/dL all other times of the day Specimen Anatomical Collection Method Collection Time Receive d Time (Source) Location / / Volume Laterality Blood specimen 08/02/2016 7:28 AM 017 7:28 (specimen) EST AM EST Bucky Pryor MD POINT OF CARE TEST ORDERABLE S Performing Organization Address City/State/[place] [address] documented in this encounter Visit Diagnoses Not on filedocumented in this encounter Active and Recently Administered Medications Times are shown in EST. PRN Medication Order 07/31/2016 08/01/2016 08/02/2016 fentaNYL 50 mcg/mL multi-dose injection (CANCELED) 0753 (Given - Provider: Sherry Miller, RN)0756 (Given - Provider: Sherry Miller, RN)0759 (Given - Provider: Sherry Miller, RN) ONCE PRN, Starting Raiza 08/02/16 at 0753, Until Raiza 2/23/17 at 1110, Intra- Operative (Intra-Procedure), Routine midazolam (PF) (VERSED) 1 mg/mL multi-dose injection (CANCELED) 0753 (Given - Provider: Sherry Miller, WES)0756 (Given - Provider: Sherry Miller, WES)0759 (Given - Provider: Sherry Miller, RN) ONCE PRN, Starting Raiza 08/02/16 at 0753, Until Raiza 08/02/16 at 1110, Intra- Operative (Intra-Procedure), Routine documented in this encounter Care Teams Shoeshiner Relationship Specialty Start Date End Date Jazmine Baer MD PCP - General 11/07/10 [address] [place] [address] documented as of this encounter
--- OUTSIDE RECORDS SUMMARY | 2022-04-11 10:52 | XMS_ITS | Encounter Summary ---
:1960 Author Organization [facility] [place] [address] Care Team Providers Name Role Phone Jazmine Baer MD Primary Care Provider Encounter Details Date Type Department Care Team Description 05/17/2016 Office Visit [place]rology at [facility] [place] Henrry Gleason, Necrotizing myopathy [facility] [place] [address] NEUROLOGY DEPT. [place], [place] [address] Social History Tobacco Use Types Packs/Day Years Used Date Never Smoker Smokeless Tobacco: Never Used Alcohol Use Standard Drinks/Week Comments No 0 (1 standard drink = 0.6 oz pure alcoho l) Sex Assigned at Date Recorded Not on file documented as of this encounter Last Filed Vital Signs Vital Sign Reading Time Taken Comments Blood Pressure 155/54 05/17/2016 11:08 AM EST Pulse 58 05/17/2016 11:08 AM EST Temperature - - Respiratory Rate - - Oxygen Saturation - - Inhaled Oxygen Concentration - - Weight 125.4 kg (276 lb 6.4 oz) 05/17/2016 11:08 AM EST Height 174 cm (5' 8.5) 05/17/2016 11:08 AM EST Body Mass Index 41.42 05/17/2016 11:08 AM EST documented in this encounter Progress Notes Henrry Gleason MD - 05/17/2016 11:30 AM EST 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 Getting IV solumedrol every 4 wks (1 gm). BS's under good control. His CPK was 2300 in December. CK 644 on 02/29/16.??CK on was 421. He is now walking with a walker. He is markedly overweight. Trying to do some walking. Walking better than in December. Reduced the IV solumedrol to 1 day per month. IVIG 2 days/per mos. Blood sugars under pretty good control. ? Port placed several mos ago. Using treadmill 10 mins/day ?? Fe levels very low (0). Getting iron supplements. Borderline anemia. ? He denies any bowel or bladder dysfunction or any shortness of breath or chest pain. Still some leg swelling which is getting better with walking. Some nonradiating back pain.Lost4 lbs. ? On exam CN'2 2-12 OK. Arms are full strength now. He has 4+/5 weakness in the iliopsoas and quads bilaterally and normal strength distally in his lower extremities. He is areflexic in LE's, nl in UE's. His sensory exam is normal.?? He has no major atrophy of his muscles. He is walking with a walker. ? He was supposed to be taking cellcept, but denied by insurance. I believe imuran was also denied. Walter need to revisit this issue as he will likely eventually need to be on something to suppress hisimmune system. His CK is coming down and his strength is quite good. I am not sure how we can get him on an immunosuppresant medication if [employer] won't pay. ?? Will try to followup with him in Jul. He is to contact me with any questions. Reg[place] as will blood draws. I would like dr. Prieto's opinion as to how to proceed. He is as good as I have ever seen him at this point. What immunotherapy could be initiated that [employer] would cover is unclear. ?? documented in this encounter Plan of Treatment Upcoming Encounters Date Type Specialty Care Team Description 06/19/2022 Office Visit Rheumatology Richi Blackmon MD [facility] RHEUMATOLOGY [place], [place] [address] (Wo rk) Scheduled Procedures Name Priority Associated Diagnoses Date/Time EGD, UPPER GI ENDOSCOPY Family hx of colon cance r COLONOSCOPY, DIAGNOSTIC Family hx of colon cance r documented as of this encounter Visit Diagnoses Diagnosis Necrotizing myopathy Other myopathies documented in this encounter Care Teams Radio Communications Mechanician Relationship Specialty Start Date End Date Jazmine Baer MD PCP - General 11/07/10 [address] [place] [address] documented as of this encounter
--- OUTSIDE RECORDS SUMMARY | 2022-04-11 10:52 | XMS_ITS | Encounter Summary ---
:1960 Author Organization [facility] [place] [address] Care Team Providers Name Role Phone Jazmine Baer MD Primary Care Provider Encounter Details Date Type Department Care Team Description 08/16/2016 Orders Only Gastroenterology at [facility] [place] [address] Social History Tobacco Use Types Packs/Day Years [...] MD [facility] RHEUM[facility] [place], [place] [address] (Wo rk) Scheduled Procedures Name Priority Associated Diagnoses Date/Time EGD, UPPER GI ENDOSCOPY Family hx of colon cance r COLONOSCOPY, DIAGNOSTIC Family hx of colon cance r documented as of this encounter Visit Diagnoses Not on filedocumented in this encounter Care Teams Can Filling Machine Operator Relationship Specialty Start Date End Date Jazmine Baer MD PCP - General 11/07/10 [address] [place] [address] documented as of this encounter
--- OUTSIDE RECORDS SUMMARY | 2022-04-11 10:52 | XMS_ITS | Encounter Summary ---
:1960 Author Organization [facility] [place] [address] Care Team Providers Name Role Phone Jazmine Baer MD Primary Care Provider Encounter Details Date Type Department Care Team Description 09/19/2016 Laboratory Lab 3L Fiona Iron deficiency anemia, unspecified iron deficiency anemia type; Appointment 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; [facility] Diabetes mellitus type 2, [place] [id number] Social History Tobacco Use Types Packs/Day Years Used Date Never Smoker Smokeless Tobacco: Never Used Alcohol Use Standard Drinks/Week Comments No 0 (1 standard drink = 0.6 oz pure alcoho l) Sex Assigned at Date Recorded Not on file documented as of this encounter Plan of Treatment Upcoming Encounters Date Type Specialty Care Team Description 06/19/2022 Office Visit Rheumatology Richi Blackmon MD [facility] ER DR RHEUMATOLOGY [place], [place] [address] (Wo rk) Scheduled Procedures Name Priority Associated Diagnoses Date/Time EGD, UPPER GI ENDOSCOPY Family hx of colon cance r COLONOSCOPY, DIAGNOSTIC Family hx of colon cance r documented as of this encounter Procedures Procedure Name Priority Date/Time Associated Diagnosis Comme nts HEMOGRAM Routine 09/19/2016 12:20 Iron deficiency Results for this PM EDT anemia, unspecified procedur e are in iron deficiency the results anemia type section. 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 Diabetes mellitus type 2, uncomplicated COMPREHENSIVE Routine 09/19/2016 12:20 Iron deficiency Results for this METABOLIC PANEL PM EDT anemia, unspecified proce dure are in (NON-FASTING) iron deficiency the results anemia type section. documented in this encounter Results (ABNORMAL) Differential, Automated (09/19/2016 12:20 PM EDT) [facility] gist Method Time Signature Neutrophils % 66.4 % [facility] Neutr Abs (ANC) 3.21 1.70 - [facility] 6.10 [facility] x10(3)/[facility] LABORATORY Lymphocytes % 16.7 % [facility] Lymphocytes Abs 0.8 (L) 0.9 - 3.2 [facility] x10(3)/[facility] LABORATORY Monocytes % 13.2 % [facility] Monocyte Abs 0.6 0.3 - 0.9 [facility] x10(3)/[facility] LABORATORY Eosinophils % 2.5 % [facility] Eosinophils Abs 0.1 0.0 - 0.4 [facility] x10(3)/[facility] LABORATORY Basophils % 0.8 % [facility] Basophils Abs 0.0 0.0 - 0.1 [facility] x10(3)/[facility] LABORATORY Immature Gran % 0.40 % [facility] Comment: Immature granulocytes(IG's)percentage an d absolute count will include metamyelocytes, myelocytes, and promyelo cytes. Blood smears from CBCs yielding IG's will be scanned manually for concor dance. If this scan disagrees with the automated IG or if promyelocytes are not ed, a manual differential will be performed. Tamara Gran Abs 0.02 0.00 - 0.04 x10(3)/[facility] LABORATORY Specimen Anatomical Collection Method Collection Time Receive d Time (Source) Location / / Volume Laterality Blood specimen 09/19/2016 12:20 7 (specimen) PM EDT 12:52 PM EDT Resulting Agency Comment Spec In Lab Rhiannon Headley MD HEMATOLOGY ORDERABLES Performing Organization Address City/State/Z[place] [address] (ABNORMAL) Hemogram (09/19/2016 12:20 PM EDT) [facility] gist Method Time Signature WBC 4.8 4.0 - 9.5 [facility] x10(3)/[facility] LABORATORY RBC 2.97 (L) 4.58 - [facility] 5.54 [facility] x10(6)/[facility] LABORATORY Hemoglobin 8.4 (L) 13.7 - [facility] gm/dL [facility] Hematocrit 25.6 (L) 40.5 - [facility] % [facility] MCV 86.2 82.9 - [facility] 93[facility]1 [facility] LABORATORY MCH 28.3 27.5 - [facility] 32.1 pg [facility] MCHC 32.8 32.0 - [facility] 35.7 gm/dL [facility] Platelets 120 (L) 145 - 357 [facility] x10(3)/[facility] LABORATORY RDWSD 50.9 (H) 36.0 - [facility]0 [facility] LABORATORY RDWCV 17.1 (H) 11.4 - [facility] 13.8 % [facility] MPV 11.2 7.6 - 12.9 [facility] LABORATORY nRBC % Auto 0.4 % [facility] nRBC Abs Auto 0.020 (H) 0.000 - [facility] 0.000 [facility] x10(3)/[facility] LABORATORY Specimen Anatomical Collection Method Collection Time Receive d Time (Source) Location / / Volume Laterality Blood specimen 09/19/2016 12:20 7 (specimen) PM EDT 12:52 PM EDT Resulting Agency Comment Spec In Lab Rhiannon Headley MD HEMATOLOGY ORDERABLES Performing Organization Address City/[facility]/[place] [address] (ABNORMAL) Prothrombin Time (09/19/2016 12:20 PM EDT) athologist Signature PT 15.2 (H) 12.0 - 15.0 [facility] LABORATORY Comment: An INR <2.0 indicates [...] appropriate depending on c linical circumstances. INR 1.2 (H) 0.9 - 1.1 [facility]OR[facility] Specimen Anatomical Collection Method Collection Time Receive d Time (Source) Location / / Volume Laterality Blood specimen 09/19/2016 12:20 7 (specimen) PM EDT 12:52 PM EDT Resulting Agency Comment Spec In Lab Rhiannon Headley MD HEMATOLOGY ORDERABLES Performing Organization Address City/[facility] [place] [address] (ABNORMAL) Comprehensive metabolic panel (non-fasting) (09/19/2016 12:20 PM EDT) athologist Signature Glucose Lvl 110 65 - 199 [facility] mg/dL [facility] Comment: Diabetes: >=200 mg/dL plus symp toms BUN 29 (H) 10 - 20 mg/dL [facility] Creatinine 1.42 0.80 - 1.50 mg/dL [facility] Comment: Please note that the pediatric reference intervals supplied above were not validated at [facility]. Results from pediatri c patients should be interpreted in conjunction to the patient's age, height and muscle mass. Sodium 136 135 - 145 mmol/L [facility] Potassium 3.4 (L) 3.5 - 5.0 mmol/L [facility] Comment: Please note: ??Patients with WBC >100,00 0 may have falsely elevated Potassium levels. ??For accurate Potassium quantif ication in these patients send serum separator tube (gold top) for subsequent determinations. ??Contact the Clinical Chemistry Laboratory if there are any qu estions. Chloride 100 98 - 107 mmol/L [facility] CO2 23 22 - 31 mmol/L [facility] Anion Gap 13 5 - 15 mmol/L [facility] Calcium 8.8 8.5 - 10.5 mg/dL [facility] Total Protein 8.5 (H) 6.1 - 8.0 gm/dL [facility] Albumin 2.9 (L) 3.2 - 5.2 gm/dL [facility] AST 20 0 - 39 unit/L [facility] ALT 14 0 - 55 unit/L [facility] Alk Phos 102 40 - 120 unit/L [facility] Total Bilirubin 0.8 0.2 - 1.3 mg/dL [facility] Bili, Direct 0.2 0.0 - 0.3 mg/dL [facility] Estimated GFR 51 (L) >=60 [facility] Comment: This estimated GFR (eGFR) value [...] the following links into your internet browser. http://[employer]/DHnkdep http://[employer]/DHMCnkf Specimen Anatomical Collection Method Collection Time Receive d Time (Source) Location / / Volume Laterality Blood specimen 09/19/2016 12:20 7 (specimen) PM EDT 12:52 PM EDT Resulting Agency Comment Spec In Lab Rhiannon Headley MD CHEMISTRY ORDERABLES Performing Organization Address City/State/Z[place] [address] (ABNORMAL) Hemoglobin A1c (09/19/2016 12:20 PM EDT) Analysis Performed At Patho logist Time Signature Hemoglobin A1C 6.4 (H) 4.3 - 5.6 [facility] [...] Mellitus, Diabetes Care 2013; 36: Suppl. 1, S67-51 Est Avg Gluc 137 mg/dL [facility] Comment: eAG equivalents for HbA1c percentages: HbA1c(%) ?eAG(mg/dL) 6.0 ?126 6.5 ?140 7.0 ?154 7.5 ?169 8.0 ?183 8.5 ?197 9.0 ?212 9.5 ?226 10.0 ? 240 Limitations: The eAG calculation has not been validated on women, individuals below 18 years old and above 70 years old, and individuals with hemoglobinopathies. Additional resources are available on ADA website: http://[employer]/DHMCadacalc José FLORES, Chaz J, Jeff R, et al. ??Tr anslating the A1C assay into estimated average glucose values. ??Diabetes Care 2008:31(8):0396-0579. 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
--- OUTSIDE RECORDS SUMMARY | 2022-04-11 10:52 | XMS_ITS | Encounter Summary ---
:1960 Author Organization [place] [address] Care Team Providers Name Role Phone Jazmine Baer MD Primary Care Provider Reason for Visit Reason Onset Date Comments Prior Authorization 06/25/2016 azathioprine-approve d Encounter Details Date Type Department Care Team Description 06/25/2016 Telephone Rheumatology at [facility] [place] Prior Authorization [facility] (azathiop rine-approved) [place] [phone] Social History Tobacco Use Types Packs/Day Years Used Date Never Smoker Smokeless Tobacco: Never Used Alcohol Use Standard Drinks/Week Comments No 0 (1 standard drink = 0.6 oz pure alcoho l) Sex Assigned at Date Recorded Not on file documented as of this encounter Miscellaneous Notes Telephone Encounter - [place] - 06/25/2016 1:26 PM EST Spoke with Pharmacist from [email or web address]. After explaining that Bucky was experiencing an autoimmune response with associated rash that at times, on history, lesion description - pustules - that come and go in a intertriginous distribution isconsistent w/ hidradenitis suppurativa-- Azathioprine was approved 30 for 30 days, 50 mg tablet from to 05/31/2017. Patient aware. documented in this encounter Plan of Treatment Upcoming Encounters Date Type Specialty Care Team Description 06/19/2022 Office Visit Rheumatology Richi Blackmon MD [facility] DR RHEUMATOLOGY [place]P [place], [place] [address] (Wo rk) Scheduled Procedures Name Priority Associated Diagnoses Date/Time EGD, UPPER GI ENDOSCOPY Family hx of colon cance r COLONOSCOPY, DIAGNOSTIC Family hx of colon cance r documented as of this encounter Visit Diagnoses Not on filedocumented in this encounter Care Teams Director Corporate Sales Relationship Specialty Start Date End Date Jazmine Baer MD PCP - General 11/07/10 [address] [place] [address] documented as of this encounter
--- OUTSIDE RECORDS SUMMARY | 2022-04-11 10:52 | XMS_ITS | Encounter Summary ---
:1960 Author Organization [facility] [place] [address] Care Team Providers Name Role Phone Jazmine Baer MD Primary Care Provider Encounter Details Date Type Department Care Team Description 08/30/2016 Office Visit Neurology at [facility] Henrry Gleason, Necrotizing myopathy [facility] [place] [phone] NEUROLOGY DEPT. [place], [place] [address] Social History Tobacco Use Types Packs/Day Years Used Date Never Smoker Smokeless Tobacco: Never Used Alcohol Use Standard Drinks/Week Comments No 0 (1 standard drink = 0.6 oz pure alcoho l) Sex Assigned at Date Recorded Not on file documented as of this encounter Last Filed Vital Signs Vital Sign Reading Time Taken Comments Blood Pressure 165/61 08/30/2016 10:48 AM EDT Pulse 74 08/30/2016 10:48 AM EDT Temperature - - Respiratory Rate - - Oxygen Saturation - - Inhaled Oxygen Concentration - - Weight 127 kg (280 lb) 08/30/2016 10:48 AM EDT Height 175.3 cm (5' 9) 08/30/2016 10:48 AM EDT reporte d Body Mass Index 41.35 08/30/2016 10:48 AM EDT documented in this encounter Progress Notes Henrry Gleason MD - 08/30/2016 11:30 AM EDT 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 Getting IV solumedrol every 4 wks (1 gm). BS's under good control. His CPK was 2300 in December. CK 644 on 02/29/16.??CK on was 421. CK most recently 179 (early August,) He is now walking with a walker and sometimes just a cane. He is markedly overweight. It is not felt that the imuran had anything to do with his gout flair up. He may have been dehydrated. ?? Reduced the IV solumedrol to 1 day per month. IVIG 2 days/per mos. Blood sugars under pretty good control. ? Port placed several mos ago. Working great. ?? Using treadmill 10-20 mins/day ? Fe levels very low (0). Getting iron supplements. Borderline anemia by previous labs. ? He denies any bowel or bladder [...] He is walking with a walker. ? I don't know if Dr. Prieto will want to try another immunosuppressant, but it may be more dictated by his insurance. ? Will try to followup with him in November. He is to contact me with any questions. Regimen will be continued up mayking as will blood draws. I would like dr. Prieto's opinion as to how to proceed. He is as good as I have ever seen him at this point. What immunotherapy could be initiated that [employer] wouldcover is unclear. documented in this encounter Plan of Treatment Upcoming Encounters Date Type Specialty Care Team Description 06/19/2022 Office Visit Rheumatology Richi Blackmon MD [facility] ER DR RHEUMATOLOGY DEP [place], [place] [address] (Wo rk) Scheduled Procedures Name Priority Associated Diagnoses Date/Time EGD, UPPER GI ENDOSCOPY Family hx of colon cance r COLONOSCOPY, DIAGNOSTIC Family hx of colon cance r documented as of this encounter Visit Diagnoses Diagnosis Necrotizing myopathy Other myopathies documented in this encounter Care Teams Drip Box Tender Relationship Specialty Start Date End Date Jazmine Baer MD PCP - General 11/07/10 [address] [place] [address] documented as of this encounter
--- OUTSIDE RECORDS SUMMARY | 2022-04-11 10:52 | XMS_ITS | Encounter Summary ---
:1960 Author Organization [facility] [place] [address] Care Team Providers Name Role Phone Jazmine Baer MD Primary Care Provider Reason for Visit Reason Comments Extremity Weakness Auth/Cert Specialty Diagnoses / Procedures Referred By Contact Refer red To Contact Diagnoses Myositis Myopathy Referral ID Status Reason Start Date Expiration Date Visits Requ ested Visits Authorized [id number] 1 1 Encounter Details Date Type Department Care Team Description 07/09/2016 - Hospital Encounter [facility] 2 Margi Carias MD [facility] [place] [address] Myopathy; 07/13/2016 [facility] Celso Casiano MD [facility] [place] [address] Myositis of lower extremity, unspecified laterality, unspecified myositis type; Augustina Ramos MD [facility] [place] [address] Pain in joint, [place] [id number] Social History Tobacco Use Types Packs/Day Years Used Date Never Smoker Smokeless Tobacco: Never Used Alcohol Use Standard Drinks/Week Comments No 0 (1 standard drink = 0.6 oz pure alcoho l) Sex Assigned at Date Recorded Not on file documented as of this encounter Last Filed Vital Signs Vital Sign Reading Time Taken Comments Blood Pressure 166/68 07/13/2016 11:22 AM EST Pulse 59 07/13/2016 11:22 AM EST Temperature 36.7 ??C (98.1 ??F) 07/13/2016 11:22 AM EST Respiratory Rate 20 07/13/2016 11:22 AM EST Oxygen Saturation 100% 07/13/2016 11:22 AM EST Inhaled Oxygen Concentration - - Weight 123.8 kg (273 lb) 07/12/2016 11:32 AM EST Height 175.3 cm (5' 9) 07/09/2016 11:44 PM EST Body Mass Index 40.32 07/09/2016 11:44 PM EST documented in this encounter Discharge Summaries Cecy Cardenas MD - 07/13/2016 11:52 AM EST Discharge Summary Patient Name: Bucky Acevedo Patient Age: 56 y.o. Language: Bermudian Race: White Ethnicity: Not nor Admit Date: 07/09/2016 Discharge Date: 07/13/16 Attending Physician: No att. providers found Discharge Physician: No att. providers found Igor Herrera MD Follow-up Recommendations for Providers: - Consider starting allopurinol when appropriate for gout prevention - Follow-up with pt's at-home VNA services for PT and OT for regaining mobility and function - Follow BMP for electrolyte imbalances, hyponatremia, hyperkalemia - Follow pt's long-terms steroid use; he has been instructed to finish up a remaining 3 of total 7-day course of prednisone 60 mg and then to taper down to 20 mg qd until symptoms resolve (which may take days to weeks), and then down to 10 mg for 5 days; it is noted that pt already has been set-up with follow-up rheumatology in clinic as noted below - Pt has been started on a PPI 40 mg for GI prophylaxis with high-dose steroids, and also has been prescribed pentamidine inhaled to use once every 4-weeks while on high-dosed steroids or prolonged course of steroids - Pt is being discharged to resume his [id number] insulin regimen for his diabetes - Pt's azathioprine is being held at discharge as the pt had started that new medication ~1-week prior to his acute presentation; this may or may not be resumed at a later time as per rheumatology in outpatient follow-up Inpatient Provider Contact Information: For questions regarding this document or issues related to this hospitalization on the Neurology Service, please contact the author(s) of this discharge summary through the [facility] [employer] . Discharge Diagnoses (Hospital Problems) and Secondary Diagnoses (Chronic Problems): Primary Diagnosis: Polyarticular gout Secondary Diagnosis: Active Hospital Problems Diagnosis ??? Myositis Resolved Hospital Problems Diagnosis Date Resolved No resolved problems to display. Active Non-Hospital Problems Diagnosis ??? Imbalance ??? Skin rash ??? Durand's esophagus ??? Nonalcoholic steatohepatitis (HORTON) ??? Anemia ??? Hepatosplenomegaly ??? Nausea and vomiting ??? Diabetes mellitus, type II ??? Myopathy Past Medical History Diagnosis Date ??? Cirrhosis ??? Diabetes ??? DM II (diabetes mellitus, type II), controlled ??? Gout ??? Hyperlipidemia ??? Hypertension ??? Kidney stone ??? 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 Obesity ??? Shingles 2009 History of Presentation: Bucky Acevedo is a 56 y.o. 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 He also has a PMH of HTN, HLD, T2DM, GERD, Gout. ?? Early this month, he was at his functional baseline, able to ambulate around his house without usinga walker. ?? He had Right leg weakness about 1 week ago. At that time, he was still able to get around house withwalker. On , the weakness spread to the left leg as well, and he was unable to walk without being able to stand. Does have pain across both knees. Feels the pain is similar to when statin myopathy was diagnosed. He does note that the statin myopathy also caused weakness of his arms, which he has not had during this illness. ?? He notes that he has had a viral illness, started a week and a half ago, with a runny nose. He has had a dry cough since then. Coricidin helped the illness somewhat. He lives with his , who had a similar illness. ?? Has also been having increasing episodes of black, runny stools. These started for the past three weeks, increasing and decreasing in quantity. Follows with Dr. Headley of GI for iron-deficiency anemia, HORTON cirrhosis, Durand esophagus. Scheduled for EGD on 08/02/16. Has had occasional issues with incontinence. ?? For his statin myopathy, his most recent IVIG was on 06/21/16. He routinely gets these at [facility] Physical Exam at Admission Vitals: Temp: [36.8 ??C (98.2 ??F)] Heart Rate: [70] Resp: [15] BP: (126)/(58) SpO2: [97 %] Heart Rate from SPO2: -- ?? Gen: Patient of apparent stated age, well nourished, well developed, awake, alert, NAD Neck: Supple, no meningismus, no carotid bruit, no occipital tenderness Resp: Normal respiratory effort, frequent non-productive coughs Abd: Obese, soft, nontender, nondistended Ext: Bilateral knee edema, with tenderness to palpation along joint line, as well as around patella bilaterally. ?? Neuro Exam: MS: AAOx4, clear language, no dysarthria, follows simple and complex commands CN: Pupils 4mm ERRL, EOMI, visual cano full to confrontation Facial sensation intact to soft touch, temperature, vibration, no facial asymmetry Hearing intact to tuning fork Palate elevates symmetrically, tongue protrudes midline SCM and trap strength intact Motor: Normal bulk and tone. UE: 5/5 R, 5/5 L Arm abduction at shoulder 5/5 R, 5/5 L Elbow extension 5/5 R, 5/5 L Elbow flexion 5/5 R, 5/5 L [employer] LE: 3/5 R, 3/5 L Hip flexion 3/5 R, 3/5 L Knee extension - NB: Hip and knee strength also limited by pain. 3/5 R, 3/5 L Knee flexion 5/5 R, 5/5 L Foot dorsiflexion 5/5 R, 5/5 L Foot plantar flexion Sensation: Intact to light touch, temperature, and vibration throughout Reflexes: DTRs 2+ R, 2+ L Biceps 2+ R, 2+ L Brachioradialis 2+ R, 2+ L Triceps 1+ R, 1+ L Patellar Trace R, Trace L Achilles tendon Toes - Mute bilaterally Coordination: Finger to nose intact, no dysmetria Rapid alternating movements & finger tapping smooth and symmetric No tremor Gait: Not assessed Hospital Course: Bucky Acevedo is a 56 y.o. male w/ HMGCoA reductase Ab necrotizing myositis( 2008) [facility], IVIG, MTX, MMF, RTX(2014), and currently on monthly IVIG and azathioprine 50mg QD(last CK 316) admitted with worsening bilateral ankle/knee pain w/ synovial fluid consistent with polyarticular gout and a flare of his autoimmune myopathy. Initial infectious workup of his URI symptoms was negative and CXR in the ED was unremarkable. Additional labs in the ED revealed a normal WBC, but elevations in his CK (405, which appears to be his baseline), elevated CRP (>300), and BUN/Cr concerning for GUY. Rheumatology was consulted, and the pt was transferred to hospital medicine on 07/11/16 for further work-up and management of his GUY, hyponatremia, autoimmune myopathy and polyarticular gout. # LE weakness, pain, and swelling over joints in setting of polyarticular gout and autoimmune myopathy - Admission CK was 405, which is near his previous baseline around 500. He had no pain on muscle palpation, and strength was full despite limitation by pain. Bilateral knee x-rays were obtained, revealing evidence of joint effusions. Orthopedics was initially consulted for consideration of compartmentsyndrome. They did not feel this was the case, and he had no indication for fasciotomy. Rheumatologywas consulted given joint swelling in setting of elevated CRP. A right knee joint aspiration was performed, and revealed elevated PMNs, and uric acid crystals. He was started on prednisone 40 mg daily on 07/10/16 and eventually increased to 60 mg as per rheumatology. Pt's CK trended down to 203 and hissymptoms including polyarticular joints and LE diffuse muscle pain were all improved after starting prednisone 60 mg qd. # GUY in setting of elevated CK 2/2 autoimmune myopathy -Initial presenting BUN and creatinine was noted at 57 and 2.14. He was aggressively hydrated with oral hydration. He was taking over 3 liters orally daily. Daily BMPs were monitored with improvement of creatinine, with discharge BUN and creatinine down to 57 and 1.31. # Hyponatremia, electrolyte imbalance - daily BMPs were monitored, and pt's sodium dropped to 125 from 136 after he had taken in > 4 L of water intake by mouth, and a fluid restriction was placed with the hyponatremia fully resolving and normalizing back to 135 on 07/13/16 before discharge; other electrolyte abnormalities were repleted as needed. # Dark stools - CBCs were monitored to assess for progressive anemia to suggest GIB. Hemoglobins were stable, withmild downtrend attributed to hemodilution. Stools were more formed while inpatient, as compared to patterns prior to admission. Iron supplements were initially held with concern for GIB. For several days prior to discharge, the pt remained hemodynamically stable and daily hemoglobins were stable and unchanged, and was noted at normal at 8.3 at time of discharge (stable/unchanged compared to 8.4 in the morning after the night of the pt's admission). Operations/Major Procedures: None Consultations 1. Neurology 2. Orthopaedics 3. Rheumatology 4. General Hospital Medicine 5. Physical and Occupational Therapy Diagnostic Tests & Neuroimaging: Date Study Results 07/09/16 ECG Component Value Flag Ref Range Units Status Ventricular rate 72 BPM Preliminary Atrial Rate 72 BPM Preliminary P-R Interval 164 ms Preliminary QRS Duration 86 ms Preliminary Q-T Interval 416 ms Preliminary QTC Calculated (Bezet) 455 ms Preliminary Calculated P [place] 6 degrees Preliminary Calculated R [place] 5 degrees Preliminary Calculated T [place] -3 degrees Preliminary INTERPRETATION Preliminary Normal sinus rhythm Moderate voltage criteria for LVH, may be normal variant Borderline ECG When compared with ECG of 17-AUG-2014 17:34, No significant change was found 07/09/16 CXR FINDINGS: Slightly lower inspiratory depth in comparison to the prior exam. Taking this into account the findings of the lungs are stable. No pleural effusion. Size of the heart and width of the mediastinum are within normal limits for AP technique. A right-sided port catheter ends at the superior cavoatrial junction. Degenerative changes of the spine are seen again. ?? IMPRESSION No acute cardiopulmonary pathology identified on chest radiograph. CT Head MRI BRAIN EEG Labs: Recent Labs 07/13/16 0842 07/12/16 0501 07/11/16 0735 07/10/16 1000 07/10/16 0040 WBC 8.0 6.5 8.1 9.5 10.8* HGB 8.3* 7.5* 7.5* 7.7* 8.4* HCT 25.5* 23.3* 22.3* 22.9* 25.7* PLATELET 174 136* 124* 117* 114* NEUTROABS 6.84* 5.77 7.19* 8.45* 10.10* Recent Labs 07/13/16 0649 07/12/16 1611 07/12/16 0533 NA 135 132* 128* K 5.3* 5.4* 5.2* CL 104 99 96* CO2 19* 18* 19* BUN 57* 62* 67* CREATININE 1.31 1.43 1.43 GLUCOSE 200* 269* 250* Recent Labs 07/13/16 0649 07/12/16 1611 07/12/16 0533 07/11/16 0735 07/10/16 1000 07/10/16 0040 CALCIUM 9.3 9.4 9.2 < > 8.9 -- 8.7 MAGNESIUM -- -- -- -- 1.12* 0.86 0.78 PHOS -- -- -- -- -- 3.7 -- < > = values in this interval not displayed. Recent Labs 07/10/16 1000 07/09/16 1751 AST 25 30 ALT 18 21 ALKPHOS 101 103 BILITOT 0.5 0.5 BILIDIR 0.2 0.2 Recent Labs 07/10/16 1752 CK 203* Recent Results (from the past 72 hour(s)) POCT Glucose Result Value Ref Range POC Glucose 171 65 - 199 mg/dL CK Result Value Ref Range CK, Total 203 (H) 0 - 200 unit/L Uric acid Result Value Ref Range Uric Acid 13.3 (H) 3.5 - 8.5 mg/dL POCT Glucose Result Value Ref Range POC Glucose 257 (H) 65 - 199 mg/dL POCT Glucose Result Value Ref Range POC Glucose 258 (H) 65 - 199 mg/dL POCT Glucose Result Value Ref Range POC Glucose 252 (H) 65 - 199 mg/dL POCT Glucose Result Value Ref Range POC Glucose 190 65 - 199 mg/dL ABO/Rh Typing Result Value Ref Range ABORh Type A Neg Antibody screen Result Value Ref Range Ab Screen Interp Negative Expires at 2359 on: 07/14/2016 ABORH Recheck Status Result Value Ref Range ABORH Type Recheck Completed Basic Metabolic Panel (non-fasting) Result Value Ref Range Glucose Lvl 157 65 - 199 mg/dL BUN 63 (H) 10 - 20 mg/dL Creatinine 1.82 (H) 0.80 - 1.50 mg/dL Sodium 129 (L) 135 - 145 mmol/L Potassium 5.3 (H) 3.5 - 5.0 mmol/L Chloride 93 (L) 98 - 107 mmol/L CO2 19 (L) 22 - 31 mmol/L Anion Gap 17 (H) 5 - 15 mmol/L Calcium 8.9 8.5 - 10.5 mg/dL Estimated GFR 38 (L) >=60 Hemogram Result Value Ref Range WBC 8.1 4.0 - 9.5 x10(3)/mcL RBC 2.63 (L) 4.58 - 5.54 x10(6)/mcL Hemoglobin 7.5 (L) 13.7 - 16.5 gm/dL Hematocrit 22.3 (L) 40.5 - 48.5 % MCV 84.8 82.9 - 93.1 fL MCH 28.5 27.5 - 32.1 pg MCHC 33.6 32.0 - 35.7 gm/dL Platelets 124 (L) 145 - 357 x10(3)/mcL RDWSD 51.5 (H) 36.0 - 45.0 fL RDWCV 16.6 (H) 11.4 - 13.8 % MPV 11.3 7.6 - 12.9 fL nRBC % Auto 0.0 % nRBC Abs Auto 0.000 0.000 - 0.000 x10(3)/mcL Differential, Automated Result Value Ref Range Neutrophils % 89.2 % Neutr Abs (ANC) 7.19 (H) 1.70 - 6.10 x10(3)/mcL Lymphocytes % 4.6 % Lymphocytes Abs 0.4 (L) 0.9 - 3.2 x10(3)/mcL Monocytes % 6.0 % Monocyte Abs 0.5 0.3 - 0.9 x10(3)/mcL Eosinophils % 0.0 % Eosinophils Abs 0.0 0.0 - 0.4 x10(3)/mcL Basophils % 0.0 % Basophils Abs 0.0 0.0 - 0.1 x10(3)/mcL Immature Gran % 0.20 % Tmaara Gran Abs 0.02 0.00 - 0.04 x10(3)/mcL Magnesium Result Value Ref Range Magnesium 1.12 (H) 0.69 - 1.07 mmol/L POCT Glucose Result Value Ref Range POC Glucose 164 65 - 199 mg/dL POCT Glucose Result Value Ref Range POC Glucose 254 (H) 65 - 199 mg/dL POCT Glucose Result Value Ref Range POC Glucose 278 (H) 65 - 199 mg/dL Basic Metabolic Panel (non-fasting) Result Value Ref Range Glucose Lvl 235 (H) 65 - 199 mg/dL BUN 67 (H) 10 - 20 mg/dL Creatinine 1.71 (H) 0.80 - 1.50 mg/dL Sodium 125 (L) 135 - 145 mmol/L Potassium 5.2 (H) 3.5 - 5.0 mmol/L Chloride 90 (L) 98 - 107 mmol/L CO2 18 (L) 22 - 31 mmol/L Anion Gap 17 (H) 5 - 15 mmol/L Calcium 9.2 8.5 - 10.5 mg/dL Estimated GFR 41 (L) >=60 Uric acid Result Value Ref Range Uric Acid 13.3 (H) 3.5 - 8.5 mg/dL POCT Glucose Result Value Ref Range POC Glucose 252 (H) 65 - 199 mg/dL Electrolytes, urine, random Result Value Ref Range U Sodium 31 mmol/L U Potassium 7 mmol/L U Chloride <20 mmol/L Creatinine, urine, random Result Value Ref Range U Creatinine 41 mg/dL POCT Glucose Result Value Ref Range POC Glucose 242 (H) 65 - 199 mg/dL POCT Glucose Result Value Ref Range POC Glucose 226 (H) 65 - 199 mg/dL POCT Glucose Result Value Ref Range POC Glucose 205 (H) 65 - 199 mg/dL POCT Glucose Result Value Ref Range POC Glucose 218 (H) 65 - 199 mg/dL POCT Glucose Result Value Ref Range POC Glucose 244 (H) 65 - 199 mg/dL Hemogram Result Value Ref Range WBC 6.5 4.0 - 9.5 x10(3)/mcL RBC 2.69 (L) 4.58 - 5.54 x10(6)/mcL Hemoglobin 7.5 (L) 13.7 - 16.5 gm/dL Hematocrit 23.3 (L) 40.5 - 48.5 % MCV 86.6 82.9 - 93.1 fL MCH 27.9 27.5 - 32.1 pg MCHC 32.2 32.0 - 35.7 gm/dL Platelets 136 (L) 145 - 357 x10(3)/mcL RDWSD 51.3 (H) 36.0 - 45.0 fL RDWCV 16.4 (H) 11.4 - 13.8 % MPV 11.9 7.6 - 12.9 fL nRBC % Auto 0.0 % nRBC Abs Auto 0.000 0.000 - 0.000 x10(3)/mcL Differential, Automated Result Value Ref Range Neutrophils % 88.4 % Neutr Abs (ANC) 5.77 1.70 - 6.10 x10(3)/mcL Lymphocytes % 5.5 % Lymphocytes Abs 0.4 (L) 0.9 - 3.2 x10(3)/mcL Monocytes % 5.5 % Monocyte Abs 0.4 0.3 - 0.9 x10(3)/mcL Eosinophils % 0.0 % Eosinophils Abs 0.0 0.0 - 0.4 x10(3)/mcL Basophils % 0.0 % Basophils Abs 0.0 0.0 - 0.1 x10(3)/mcL Immature Gran % 0.60 % Tamara Gran Abs 0.04 0.00 - 0.04 x10(3)/mcL Basic Metabolic Panel (non-fasting) Result Value Ref Range Glucose Lvl 250 (H) 65 - 199 mg/dL BUN 67 (H) 10 - 20 mg/dL Creatinine 1.43 0.80 - 1.50 mg/dL Sodium 128 (L) 135 - 145 mmol/L Potassium 5.2 (H) 3.5 - 5.0 mmol/L Chloride 96 (L) 98 - 107 mmol/L CO2 19 (L) 22 - 31 mmol/L Anion Gap 13 5 - 15 mmol/L Calcium 9.2 8.5 - 10.5 mg/dL Estimated GFR 51 (L) >=60 POCT Glucose Result Value Ref Range POC Glucose 266 (H) 65 - 199 mg/dL POCT Glucose Result Value Ref Range POC Glucose 230 (H) 65 - 199 mg/dL POCT Glucose Result Value Ref Range POC Glucose 247 (H) 65 - 199 mg/dL POCT Glucose Result Value Ref Range POC Glucose 202 (H) 65 - 199 mg/dL Basic Metabolic Panel (non-fasting) Result Value Ref Range Glucose Lvl 269 (H) 65 - 199 mg/dL BUN 62 (H) 10 - 20 mg/dL Creatinine 1.43 0.80 - 1.50 mg/dL Sodium 132 (L) 135 - 145 mmol/L Potassium 5.4 (H) 3.5 - 5.0 mmol/L Chloride 99 98 - 107 mmol/L CO2 18 (L) 22 - 31 mmol/L Anion Gap 15 5 - 15 mmol/L Calcium 9.4 8.5 - 10.5 mg/dL Estimated GFR 51 (L) >=60 POCT Glucose Result Value Ref Range POC Glucose 276 (H) 65 - 199 mg/dL POCT Glucose Result Value Ref Range POC Glucose 373 (H) 65 - 199 mg/dL POCT Glucose Result Value Ref Range POC Glucose 332 (H) 65 - 199 mg/dL POCT Glucose Result Value Ref Range POC Glucose 285 (H) 65 - 199 mg/dL POCT Glucose Result Value Ref Range POC Glucose 266 (H) 65 - 199 mg/dL POCT Glucose Result Value Ref Range POC Glucose 253 (H) 65 - 199 mg/dL POCT Glucose Result Value Ref Range POC Glucose 204 (H) 65 - 199 mg/dL Basic Metabolic Panel (non-fasting) Result Value Ref Range Glucose Lvl 200 (H) 65 - 199 mg/dL BUN 57 (H) 10 - 20 mg/dL Creatinine 1.31 0.80 - 1.50 mg/dL Sodium 135 135 - 145 mmol/L Potassium 5.3 (H) 3.5 - 5.0 mmol/L Chloride 104 98 - 107 mmol/L CO2 19 (L) 22 - 31 mmol/L Anion Gap 12 5 - 15 mmol/L Calcium 9.3 8.5 - 10.5 mg/dL Estimated GFR 56 (L) >=60 POCT Glucose Result Value Ref Range POC Glucose 175 65 - 199 mg/dL Hemogram Result Value Ref Range WBC 8.0 4.0 - 9.5 x10(3)/mcL RBC 2.92 (L) 4.58 - 5.54 x10(6)/mcL Hemoglobin 8.3 (L) 13.7 - 16.5 gm/dL Hematocrit 25.5 (L) 40.5 - 48.5 % MCV 87.3 82.9 - 93.1 fL MCH 28.4 27.5 - 32.1 pg MCHC 32.5 32.0 - 35.7 gm/dL Platelets 174 145 - 357 x10(3)/mcL RDWSD 53.1 (H) 36.0 - 45.0 fL RDWCV 16.6 (H) 11.4 - 13.8 % MPV 11.5 7.6 - 12.9 fL nRBC % Auto 0.3 % nRBC Abs Auto 0.020 (H) 0.000 - 0.000 x10(3)/mcL Differential, Automated Result Value Ref Range Neutrophils % 86.0 % Neutr Abs (ANC) 6.84 (H) 1.70 - 6.10 x10(3)/mcL Lymphocytes % 6.4 % Lymphocytes Abs 0.5 (L) 0.9 - 3.2 x10(3)/mcL Monocytes % 6.5 % Monocyte Abs 0.5 0.3 - 0.9 x10(3)/mcL Eosinophils % 0.0 % Eosinophils Abs 0.0 0.0 - 0.4 x10(3)/mcL Basophils % 0.0 % Basophils Abs 0.0 0.0 - 0.1 x10(3)/mcL Immature Gran % 1.10 % Tamara Gran Abs 0.09 (H) 0.00 - 0.04 x10(3)/mcL POCT Glucose Result Value Ref Range POC Glucose 204 (H) 65 - 199 mg/dL Pending Studies and Lab Data: The patient will need the following 2 tests completed on: 07/09/2016 1. CBC (with Diff) 2. CBC (with Diff) Diagnosis: Authorizing Provider: Celso Casiano MD Vital Signs at Discharge: BP: 166/68, Heart Rate: 59, Temp: 36.7 ??C (98.1 ??F), Resp: 20, BMI (Calculated): 40 Height: 175.3 cm (5' 9) (07/09/16 2344) Weight - Scale: (!) 123.8 kg (273 lb) (07/12/16 1132) Functional and Cognitive Status: Baseline cognitive status; pt will need continued PT and OT to get back to his baseline functional status Physical Exam at Discharge: GEN: NAD, A&C HENT: NC, AT, PERRL, EOMI, AI-sclera, MMM Neck: Supple, non-tender, no JVD CV: RRR, s1 s2 nl, no murmurs, rubs, or gallops Pulm: CTAB, no wheezing, rhonchi, or rales Abd: Soft, non-tender, non-distended, normoactive BS, no rebound or guarding Ext: Radial and DP pulses 2+ b/l; good capillary refill distally; no edema peripherally Neuro: Alert and oriented x4, LE weakness 2/2 pain with interval improvement with greater strength and equal b/l Skin: No new lesions appreciated Discharge Conditions/Prognosis: Good / Fair Discharge to: Home with VNA services including PT and OT Updated Allergies/ADRs: Allergies Allergen Reactions ??? Methotrexate Hives, Itching and Rash ??? Morphine Itching ??? Xqokzca-Kbe-Ltq Reductase Inhibitors Myopathy Immunizations Given this Hospitalization: Immunization History Administered Date(s) Administered ??? Hepatitis B Vaccine, Adult 01/27/2014, 08/10/2014 ??? Influenza Vaccine w/Preservative, Split 03/10/2014, 04/29/2015 ??? Influenza Vaccine, Whole 04/23/2006, 03/10/2009 ??? Pneumococcal Polyvalent 23 08/13/2014 Discharge Medications: Your Medications New Medications Dose Details pantoprazole 40 mg Tbec Commonly known as: PROTONIX Take 1 tablet by mouth daily. 40 mg Quantity: 90 tablet Refills: 3 pentamidine 300 mg Solr Commonly known as: PENTAM Inhale 300 mg into the lungs once for 1 dose. 300 mg Quantity: 1 each Refills: 0 * predniSONE 20 mg Tab Commonly known as: DELTASONE Take 3 tablets by mouth daily for 3 days. Start taking on: 07/14/2016 60 mg Quantity: 9 tablet Refills: 0 * predniSONE 20 mg Tab Commonly known as: DELTASONE Take 1 tablet by mouth daily. Start taking on: 07/17/2016 20 mg Quantity: 21 tablet Refills: 0 * Notice: This list has 2 medication(s) that are the same as other medications prescribed for you. Read the directions carefully, and ask your doctor or other care provider to review them with you. Continued medications, unchanged Dose Details atenolol 50 mg Tab Commonly known as: TENORMIN Take 50 mg by mouth daily. 50 mg Refills: 0 BD INSULIN PEN NEEDLE UF SHORT 31 gauge x 5/16 Ndle USE 5 DAILY WITH LANTUS AND HUMALOG. Generic drug: insulin needles (disposable) Refills: 4 ferrous gluconate 240 mg (27 mg iron) Tab Commonly known as: FERGON Take 240 mg by mouth 3 times daily (with meals). 240 mg Refills: 0 ferrous sulfate 324 mg (65 mg iron) Tbec Take 324 mg by mouth every other day. 324 mg Refills: 0 furosemide 20 mg Tab Commonly known as: LASIX Take 1 tablet by mouth daily. 20 mg Quantity: 30 tablet Refills: 12 glipiZIDE 10 mg Tr24 Commonly known as: GLUCOTROL XL TAKE ONE TABLET BY MOUTH EVERY DAY Refills: 3 humaLOG KwikPen 100 unit/mL Inpn INJECT UNDER THE SKIN DIRECTED BEFORE MEALS MAXIMUM OF 40 UNITS TOTAL PER DAY Generic drug: Insulin Lispro Refills: 3 indomethacin 50 mg Cap Commonly known as: INDOCIN Take 50 mg by mouth as needed. 50 mg Refills: 0 LANTUS SOLOSTAR Inpn INJECT 25 UNITS SUBCUTANEOUSLY EVERY MORNING AND 80 UNITS IN THE EVENING DOSE INCREASE Generic drug: insulin glargine Refills: 5 lisinopril-hydrochlorothiazide 20-12.5 mg Tab Commonly known as: PRINZIDE;ZESTORETIC Take 2 tablets by mouth daily. 2 tablet Refills: 0 multivitamin Cap Take 1 capsule by mouth daily. 1 capsule Refills: 0 omeprazole 40 mg Cpdr Commonly known as: PriLOSEC Take 1 capsule by mouth daily. 40 mg Quantity: 90 capsule Refills: 3 ondansetron 4 mg Tab Commonly known as: ZOFRAN Take 1 tablet by mouth as needed. 4 mg Quantity: 20 tablet Refills: 3 terazosin 5 mg Cap Commonly known as: HYTRIN Take 5 mg by mouth nightly. 5 mg Refills: 0 STOPPED Medications azaTHIOprine 50 mg Tab Commonly known as: IMURAN Smoking Status at Discharge: History Smoking Status ??? Never Smoker Smokeless Tobacco ??? Never Used Instructions Given to Patient at Discharge: Patient Instructions Instruction after leaving the hospital 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 You will continue the high dosed steroid at least until your brim edge trimmer will instruct you when to stop. You will start a new medication to reduce risk of gastritis and infection as you take the high dosed steroids for a prolonged period of time. You will continue physical and occupational therapies at home with VNA services. Call your doctor or seek medical attention if you develop the following: Call your doctor or seek medical attention if you experience any alarming symptoms. This may include, but is not limited to, fever, chest pain, severe shortness of breath, nausea with vomiting, persistent decrease in your urinaryoutput, severe pain, or any other concerning symptoms. Activity level: As tolerated but ask for help when needed for any physical activity; please continueto work with physical therapy and occupational therapy at home with VNA services. Diet: No new restrictions. Driving: Please do not drive if you feel lightheaded, dizzy, faint, or taking any opioids/narcotics (i.e oxycodone). It is advisable that you do not drive till you follow-up with your primary care physician and after you have been cleared by physical therapy to do so. Shower/Bath: No new restrictions. Patient Instructions: Follow-Up Appointments Future Appointments Date Time Provider Department Center 07/23/2016 11:00 AM Henrry Gleason MD [facility] 08/02/2016 4:00 PM Akash Prieto MD [facility] Date and Time Provider and Specialty Location July 17 at 10:15 AM Jazmine Baer MD , PCP [address] / [place] [address] Your Inpatient Doctor(s) at [facility]: Augustina Tao MD Huynh, Richie, MD Wesley, Mathew, MD Your Primary Care Provider: Jazmine Baer MD [address] / [place] [address] For questions regarding this document or issues relating to this hospitalization on the Medical Service, please contact your inpatient physician through the [facility] Astronautical Engineer . Issues after hours and on weekends will be handled by the Hospitalist staff on-call. Physical Therapy Recommendations: Staff Mobility Recommendations: Currently performs sit to stand transfers with rolling walker and min-mod assist of two from elevated bed. Has not performed stand pivot transfer yet. Precautions/Restrictions: fall, other (see comments) (skin breakdown risk)?? Anticipated Physical Therapy Frequency: 3-5 times/wk Occupational Therapy Recommendations: Pt would benefit from ongoing OT interventions to increase independence with self care and progress functional mobility while hospitalized. Therapy Frequency: 3-5 times/wk General Instructions None Future Appointments and Orders Future Appointments Provider Department Dept Phone 07/23/2016 11:00 AM Henrry Gleason MD Neurology [phone] 08/02/2016 4:00 PM Akash Prieto MD Rheumatology [phone] Future Orders Complete By Expires Referral to Home Health - at DISCHARGE [[id number] CPT(R)] As directed Process Instructions: Scheduling Instructions: Comments: DOCUMENTATION FOR VNA SERVICES PATIENT'S LOCATION: [facility] [address] [facility] [address] (home) Cell: Telephone Information: Cosmetic Sales Assistant's Name: Patient In discussion with the attending physician, it is certified that this patient is under their care and that they, or a Nurse Practitioner,Clinical Nurse specialist or Physician Residential Housekeeper who is working directly with them, had a face to face encounter that meets the physician face to face encounter requirements with this patient on 07/13/2016 The encounter with the patient was in whole, or in part, for the following medical condition, which is the primary reason for home health care services: Myositis In discussion with the provider, it is certified that, based on their findings, the following services are medically necessary for home health services. To provide the following care/treatments with the clinical findings supporting the need for servicesas follows: HOME CARE ORDERS: PT ORDERS: Continue rehab for endurance, gait stability and strength with mobility and transfers. Home safety evaluation. Home exercise program if appropriate. OT: assess and continue rehab for managing ADL's. HOME HEALTH CARE AGENCY: [facility] ([facility] [place] [facility]-is in [place], [place]) PHONE: [phone] FAX: [phone] Start of care: Within 24-48hrs of discharge FOR MEDICARE ONLY: In discussion with the attending physician, it is certified that the clinical findings support that this patient is homebound because absences from home require considerable and taxing effort due to: pain with activity, limited mobility, requires assistance with transfers, bed mobility and ambulation Please note that any additional orders needs or changes will need to be obtained from this patient'sPCP: Jazmine Baer MD [address] / [place] [address] All VNA agencies which cover the area of patient's residence have been reviewed, either verbally or in writing, and patient/family have chosen the home health care agency noted Questions: Agency name and contact information: [facility] Patient location post discharge: Home What services are requested: Physical Therapy Occupational Therapy Start date: 07/13/2016 Responsible MD post discharge contact info: PCP Referral to Home Health - at DISCHARGE [[id number] CPT(R)] As directed Process Instructions: Scheduling Instructions: Comments: Bucky Acevedo ? [address] [place] [address] (home) ?? Cell: Telephone Information: Mobile ?[phone] Cosmetic Sales Assistant's Name: Patient In discussion with the attending physician, it is certified that this patient is under their care and that they, or a Nurse Practitioner,Clinical Nurse specialist or Physician Residential Housekeeper who is working directly with them, had a face to face encounter that meets the physician face to face encounter requirements with this patient on 07/13/2016 ? The encounter with the patient was in whole, or in part, for the following medical condition, which is the primary reason for home health care services: Myositis In discussion with the provider, it is certified that, based on their findings, the following services are medically necessary for home health services. To provide the following care/treatments with the clinical findings supporting the need for servicesas follows: HOME CARE ORDERS: PT ORDERS: Continue rehab for endurance, gait stability and strength with mobility and transfers. Home safety evaluation. Home exercise program if appropriate. OT: assess and continue rehab for ??managing ADL's. HOME HEALTH CARE AGENCY: [facility] PHONE: [phone] FAX: [phone] Start of care: Within 24-48hrs of discharge FOR MEDICARE ONLY: In discussion with the attending physician, it is certified that the clinical findings support that this patient is homebound because absences from home require considerable and taxing effort due to: pain with activity, limited mobility, requires assistance with transfers, bed mobility and ambulation Please note that any additional orders needs or changes will need to be obtained from this patient'sPCP: ??Jazmine Baer MD ? [address] / [place] [address] ?[phone] All VNA agencies which cover the area of patient's residence have been reviewed, either verbally or in writing, and patient/family have chosen the home health care agency noted Questions: Agency name and contact information: [facility] Patient location post discharge: Home What services are requested: Physical Therapy Occupational Therapy Start date: 07/13/2016 Responsible MD post discharge contact info: PCP Future Appointments Date Time Provider Department Center 07/23/2016 11:00 AM Henrry Gleason MD [facility] 08/02/2016 4:00 PM Akash Prieto MD [facility] Primary Care Provider: Jazmine Baer MD [address] / [place] [address] Discharge References/Attachments None documented in this encounter Discharge Instructions Patient InstructionsIgor Herrera MD - 07/12/2016 4:39 PM EST Instruction after leaving the hospital 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 You will continue the high dosed steroid at least until your brim edge trimmer will instruct you when to stop. You will start a new medication to reduce risk of gastritis and infection as you take the high dosed steroids for a prolonged period of time. You will continue physical and occupational therapies at home with VNA services. Call your doctor or seek medical attention if you develop the following: Call your doctor or seek medical attention if you experience any alarming symptoms. This may include, but is not limited to, fever, chest pain, severe shortness of breath, nausea with vomiting, persistent decrease in your urinaryoutput, severe pain, or any other concerning symptoms. Activity level: As tolerated but ask for help when needed for any physical activity; please continueto work with physical therapy and occupational therapy at home with VNA services. Diet: No new restrictions. Driving: Please do not drive if you feel lightheaded, dizzy, faint, or taking any opioids/narcotics (i.e oxycodone). It is advisable that you do not drive till you follow-up with your primary care physician and after you have been cleared by physical therapy to do so. Shower/Bath: No new restrictions. Patient Instructions: Follow-Up Appointments Future Appointments Date Time Provider Department Center 07/23/2016 11:00 AM Henrry Gleason MD [facility] 08/02/2016 4:00 PM Akash Prieto MD [facility] Date and Time Provider and Specialty Location July 17 at 10:15 AM Jazmine Baer MD , PCP [address] / [place] [address] Your Inpatient Doctor(s) at [facility]: Augustina Tao MD Huynh, Richie, MD Wesley, Mathew, MD Your Primary Care Provider: Jazmine Baer MD [address] / [place] [address] For questions regarding this document or issues relating to this hospitalization on the Medical Service, please contact your inpatient physician through the [facility] Astronautical Engineer . Issues after hours and on weekends will be handled by the Hospitalist staff on-call. Physical Therapy Recommendations: Staff Mobility Recommendations: Currently performs sit to stand transfers with rolling walker and min-mod assist of two from elevated bed. Has not performed stand pivot transfer yet. Precautions/Restrictions: fall, other (see comments) (skin breakdown risk)?? Anticipated Physical Therapy Frequency: 3-5 times/wk Occupational Therapy Recommendations: Pt would benefit from ongoing OT interventions to increase independence with self care and progress functional mobility while hospitalized. Therapy Frequency: 3-5 times/wk documented in this encounter Medications at Time of Discharge Medication Sig Dispensed Refills Start Date End Date furosemide (LASIX) 20 mg Take 1 tablet by 30 tablet 12 03/25 TabletIndications: mouth daily. Myopathy multivitamin Capsule Take 1 capsule by 0 mouth daily. predniSONE (DELTASONE) Take 3 tablets by 9 tablet 0 201607/17/2016 20 mg Tablet mouth daily for 3 days. pentamidine (PENTAM) 300 Inhale 300 mg into 1 each 0 08/201607/13/2016 mg Recon Soln the lungs once for 1 dose. pantoprazole (PROTONIX) Take 1 tablet by 90 tablet 3 201608/02/2016 40 mg Tablet, Delayed mouth daily. Release (E.C.) predniSONE (DELTASONE) Take 1 tablet by 21 tablet 0 017 08/30/2016 20 mg Tablet mouth daily. ferrous gluconate Take 240 mg by mouth 0 08/02/2016 (FERGON) 240 mg (27 mg 3 times daily (with iron) TabletIndications: meals). Reported on Iron deficiency anemia, 08/02/2016 unspecified iron deficiency anemia type glipiZIDE (GLUCOTROL XL) TAKE ONE TABLET BY 3 08/30/2016 10 mg Tablet Extended MOUTH EVERY DAY Rel 24 hr ferrous sulfate 324 mg Take 324 mg by mouth 0 07/02/2017 (65 mg iron) Tablet, every other day. Delayed Release (E.C.) terazosin (HYTRIN) 5 mg Take 5 mg by mouth 0 09/0908/02/2016 Capsule nightly. Reported on 08/02/2016 indomethacin (INDOCIN) Take 50 mg by mouth 0 04/0 12/201510/02/2017 50 mg Capsule as needed. atenolol (TENORMIN) 50 Take 50 mg by mouth 0 10/02/2017 mg Tablet daily. omeprazole (PRILOSEC) 40 Take 1 capsule by 90 capsule 3 08/0912/25/2017 mg capsule mouth daily. ondansetron (ZOFRAN) 4 Take 1 tablet by 20 tablet 3 014 02/29/2020 mg tablet mouth as needed. lisinopril-hydrochloroth Take 2 tablets by 0 05/02/2021 iazide mouth daily. (PRINZIDE;ZESTORETIC) 20-12.5 mg per tablet documented as of this encounter Progress Notes Augustina Tao MD - 07/13/2016 1:29 PM EST Patient Name: Bucky Acevedo Patient Age: 56 y.o. Birthdate: 1960 Admit date: 07/09/2016 Attending Physician: Claudette att. providers found Hospital Medicine - Attending Day of Discharge Documentation Discharge diagnosis Active Hospital Problems Diagnosis ??? Myositis Resolved Hospital Problems Diagnosis Date Resolved No resolved problems to display. Secondary Issues Active Non-Hospital Problems Diagnosis ??? Imbalance ??? Skin rash ??? Durand's esophagus ??? Nonalcoholic steatohepatitis (HORTON) ??? Anemia ??? Hepatosplenomegaly ??? Nausea and vomiting ??? Diabetes mellitus, type II ??? Myopathy I have personally seen and examined the patient and they are ready for discharge. Select the appropriate statement that describes your involvement and care and omit the other: I spent >30 minutes (Day of Discharge Code 61549) involved in the final examination of the patient, discussion of the hospital stay, instructions for continuing care to all relevant caregivers, and preparation of discharge records, prescriptions and referral forms. Plans ? Discharge to Home with VNA services ? Follow-up scheduled with PCP, rheumatology. ? Please see the Discharge Summary for complete details of any medication changes and additional plans. Norma Winkler RN - 07/13/2016 11:48 AM EST Patient Name: Bucky Acevedo Patient Age: 56 y.o. Birthdate: 1960 Admit date: 07/09/2016 Attending Physician: Augustina Tao MD Pt discharged home with VNA service via a ride from family. IV removed. AVS given and reviewed, questions answered. Medications discussed and their impact on BS management. Deric Michaud MD - 07/12/2016 9:13 AM EST Rheumatology Consult Follow Up Note Attending: Dr. Deric Morales Fellow: Dr. Ruth Voss Date: 07/12/16 ID: Bucky Acevedo is a 56 y.o. male w/ a Hx of HMGCoA reductase Ab necrotizing myositis(2008) treated in the past with steroids, IVIG, MTX, MMF, RTX(2014), and currently on monthly IVIG and azathioprine 50mg QD(last CK 316), admitted with worsening bilateral ankle/knee pain w/ synovial fluid consistent with polyarticular gout. Length of Stay: Hospital Day 3 days Active Problems: Polyarticular Gout GUY Anemia 24 Hour Events/Subjective: - pain now 5/10 today - much improvement in ROM, but still significant pain in knees in ankles. MTPs feel better today. - unable to work with PT yesterday due to pain, however he did sit up to the side of the bed - worsening anemia; being set up for outpatient EGD and pill camera - GUY improving Inpatient Medications: Scheduled Meds: ??? insulin glargine 60 Units Subcutaneous Nightly ??? senna-docusate 1 tablet Oral BID ??? insulin lispro 3-12 Units Subcutaneous Q4H MAGAIL ??? polyethylene glycol (MIRALAX)oral powder 17 g Oral Daily ??? predniSONE 40 mg Oral Daily ??? atenolol 50 mg Oral Daily ??? terazosin 5 mg Oral Nightly ??? sodium chloride 0.9 % 5 mL Intravenous BID ??? enoxaparin 40 mg Subcutaneous Nightly ??? pantoprazole 40 mg Intravenous Daily Continuous Infusions: ??? sodium chloride 0.9% 100 mL/hr (07/12/16 9143) PRN Meds:.HYDROmorphone, sodium chloride 0.9 %, lidocaine, senna-docusate, ondansetron OR ondansetron, dextrose 50% OR glucagon (human recombinant), acetaminophen Physical Examination: Vitals: Last value Range last 24 hrs Temperature Temp: 36.5 ??C (97.7 ??F) Temp: [36.1 ??C (97 ??F)-36.5 ??C (97.7 ??F)] Heart Rate Heart Rate: 63 Heart Rate: [62-63] Blood Pressure BP: 141/63 BP: (118-150)/(60-70) Respiratory Rate Resp: 18 Resp: [16-18] SpO2 SpO2: 98 % SpO2: [98 %-99 %] Patient Vitals for the past 168 hrs: Weight 07/11/16 2035 (!) 124.1 kg (273 lb 8 oz) 07/09/16 1516 (!) 122.5 kg (270 lb) Admit wt:122.47 kg Ins/Outs: Intake/Output Summary (Last 24 hours) at 07/12/16 0913 Last data filed at 07/12/16 0851 Gross per 24 hour Intake 3124 ml Output 2550 ml Net 574 ml Gen: Alert and pleasant in conversation Eyes: EOMI, anicteric CV: intact distal pulses GI: Obese, nontender Skin: Warm and Dry, no lesions Neuro: Decreased strength in bilateral lower extremities due to pain Extremities: Elbows: no synovitis or evidence of tophi, normal ROM Wrists: no synovitis, normal ROM Hands: no synovitis Knees: Minimal ROM w/ flexion due to pain, but slight improvement from yesterday, large bilateral effusions, warm Ankles: Minimal ROM w/ dorsiflex or plantar-flex due to pain but slight improvement from yesterday, large bilateral effusions, warm Left Calf: The patient has pain to the lateral left calf, there is no size difference between his calves, and there is no posterior calf pain. Feet: MPT w/ improved ROM, less swelling and tenderness today compared to yesterday. Laboratory: Recent Labs 07/12/16 0501 07/11/16 0735 07/10/16 1000 WBC 6.5 8.1 9.5 HGB 7.5* 7.5* 7.7* HCT 23.3* 22.3* 22.9* PLATELET 136* 124* 117* Recent Labs 07/12/16 0533 07/11/16 1546 07/11/16 0735 NA 128* 125* 129* K 5.2* 5.2* 5.3* CL 96* 90* 93* CO2 19* 18* 19* BUN 67* 67* 63* CREATININE 1.43 1.71* 1.82* Recent Labs 07/10/16 1000 07/09/16 1751 AST 25 30 ALT 18 21 ALKPHOS 101 103 BILITOT 0.5 0.5 BILIDIR 0.2 0.2 Recent Labs 07/12/16 0533 07/11/16 1546 07/11/16 0735 07/10/16 1000 07/10/16 0040 CALCIUM 9.2 9.2 8.9 -- 8.7 MAGNESIUM -- -- 1.12* 0.86 0.78 PHOS -- -- -- 3.7 -- Microbiology: Synovial Fluid: Nucleated Cells: 57661 Neut Abs: 19163 Crystal: many intracellular and extracellular uric acid crystals seen Assessment/Plan: Bucky Acevedo is a 56 y.o. male w/ a Hx of HMGCoA reductase Ab necrotizing myositis(2008) treated in the past with steroids, IVIG, MTX, MMF, RTX(2014), and currently on monthly IVIGand azathioprine 50mg QD(last CK 316), admitted with worsening bilateral ankle/knee pain w/ synovialfluid consistent with polyarticular gout. Mr. Acevedo is now on day 2 of prednisone 20mg. He again had a slight subjective improvement in his pain since yesterday. However, his MTPs look much better, and he is starting to get some ROM back in his knees and wrists. He was unable to work with PT yesterday due to the pain, but even getting him to the chair today would be helpful. He will continue his steroids as outlined below. #Polyarticular Gout - prednisone 40mg x7 days, 20mg until symptoms resolve, then 10mg for 5 days - follow up with outpatient rheumatology. Thank your for the consult, and letting us be involved in Mr. Acevedo's care. SPIKE DOOLEY MD Medicine Resident: PGY2 07/12/2016 ATTENDING ADDENDUM: Correction of the above assessment, Mr. Acevedo is now day 3 of 40mg of prednisone. Slowly improving. We will sign off. Augustina Tao MD - 07/12/2016 7:22 AM EST [facility] Medicine Resident Progress Note Admit date: Hospital day: Service: Attending 07/09/2016 3 Medicine Green Team Pager [phone] Augustina Tao MD ID: Bucky Acevedo is a 56 y.o. male with HTN, HLD, DM2, HORTON, GERD, anemia, gout and necrotizing statin myopathy who was admitted with lower extremity weakness and pain. (S) - No overnight events - Per patient: No nausea/vomiting/fevers/chills; pain in legs has improved so that he can move them better (O) Meds Notable Meds: Atenlolol, enoxaparin, prednisone, terazosin IV infusions: IVNS 24 hr Vitals T Temp: [36.1 ??C (97 ??F)-36.5 ??C (97.7 ??F)] HR Heart Rate: [60-63] BP BP: (118-150)/(60-71) Art BP BP (Arterial Line): -- RR Resp: [16-18] SpO2 SpO2: [98 %-99 %] IO 07/11 07 - 07/12 0700 In: 2525 [P.O.:600; I.V.:1925] Out: 2500 [Urine:2500] Wt Last (!) 124.1 kg (273 lb 8 oz) Admit 122.47 kg Physical Exam GEN Comfortable in bed, NAD HEENT NC/AT CV Nl rate, regular rhythm, soft systolic murmur PULM Nl resp effort, CTAB anteriorly GI Soft, NT, ND, nl bs DERM No new rashes MSK Trace pitting edema of feet bilaterally NEURO Grossly moves extremities PSYCH Good mood, pleasant, cooperative Pertinent Labs/Micro Coag - staph in urine <50k NGTD on blood cx Anemia 7.5 (stable) Hyponatremia 128 K 5.2 Cr 1.4 (improving) (A/P) Bucky Acevedo is a 56 y.o. male w/ PMH notable for HTN, HLD, DM2, and necrotizing statin myopathyadmitted with an acute flair of myositis that likely precipitated GUY. Bone marrow biopsy in 2016 which was unrevealing and therefore will continue to monitor anemia clnically. Continue free water restriction and IVNS to treat hyponatremia. Otherwise, looking to PT to evaluate function of lower extremity with goal to return to baseline. Patient declines rehab and is interested in home PT services. ?? Plan: # GUY on CKD, resolved # Hyponatremia - free water restriction - IVNS infusion ?? # Anemia - daily CBC - no indication for transfusion at this time # Autoimmune myopathy, improved - PT evaluation - prednisone 40mg (07/10-07/16), then 20mg (07/17-07/23) # DM - increase to glargine 60U nightly Josias Carreon MD PGY-1, Internal Medicine Medicine Green Team, Pager [phone] M2 Hospital Medicine Service Attending Documentation I certify that the patient requires: [x] inpatient care status due to [myositis, gout, deconditioning] Please see Dr. Josias Carreon's note for details of the patient history of presentation and data. I have discussed, reviewed and agree with the documented History, Physical findings, Assessment and Plan of care. I have examined the patient myself and personally reviewed all studies. Additions to thehistory, physical, assessment and plan include the following: continue steroids, PT/OT, iv fluids. Angel Mcnulty RN - 07/12/2016 7:02 AM EST Pt arrived to floor at 0635. No s/s of distress. Pt oriented to room. Belongings at bedside. Deric Michaud MD - 07/11/2016 10:54 AM EST Rheumatology Consult Follow Up Note Attending: Dr. Deric Morales Fellow: Dr. Ruth Voss Date: 07/11/16 ID: Bucky Acevedo is a 56 y.o. male w/ a Hx of HMGCoA reductase Ab necrotizing myositis(2008) treated in the past with steroids, IVIG, MTX, MMF, RTX(2014), and currently on monthly IVIG and azathioprine 50mg QD(last CK 316), admitted with worsening bilateral ankle/knee pain w/ synovial fluid consistent with polyarticular gout. Length of Stay: Hospital Day 2 days Active Problems: Polyarticular Gout GUY 24 Hour Events/Subjective: - synovial fluid consistent with acute gout - started on prednisone, pain now 11/17, yesterday 03/19 - still feels stiff, but improving - going to work with PT today. Inpatient Medications: Scheduled Meds: ??? polyethylene glycol (MIRALAX)oral powder 17 g Oral Daily ??? predniSONE 40 mg Oral Daily ??? atenolol 50 mg Oral Daily ??? terazosin 5 mg Oral Nightly ??? sodium chloride 0.9 % 5 mL Intravenous BID ??? enoxaparin 40 mg Subcutaneous Nightly ??? insulin lispro 2-8 Units Subcutaneous Q4H MAGALI ??? insulin glargine 40 Units Subcutaneous Nightly ??? pantoprazole 40 mg Intravenous Daily Continuous Infusions: PRN Meds:.HYDROmorphone, sodium chloride 0.9 %, lidocaine, senna-docusate, ondansetron OR ondansetron, dextrose 50% OR glucagon (human recombinant), acetaminophen Physical Examination: Vitals: Last value Range last 24 hrs Temperature Temp: 36.5 ??C (97.7 ??F) Temp: [36.5 ??C (97.7 ??F)-37.5 ??C (99.5 ??F)] Heart Rate Heart Rate: 60 Heart Rate: [60-77] Blood Pressure BP: 125/71 BP: (107-129)/(50-71) Respiratory Rate Resp: 18 Resp: [18-20] SpO2 SpO2: 98 % SpO2: [95 %-99 %] Patient Vitals for the past 168 hrs: Weight 07/09/16 1516 (!) 122.5 kg (270 lb) Admit wt:122.47 kg Ins/Outs: Intake/Output Summary (Last 24 hours) at 07/11/16 1055 Last data filed at 07/11/16 1000 Gross per 24 hour Intake 2840 ml Output 850 ml Net 1990 ml Gen: Alert and pleasant in conversation Eyes: EOMI, anicteric CV: intact distal pulses GI: Obese, nontender Skin: Warm and Dry, no lesions Neuro: Decreased strength in bilateral lower extremities due to pain Extremities: Elbows: no synovitis or evidence of tophi, normal ROM Wrists: no synovitis, normal ROM Hands: no synovitis Knees: Unable to flex past 120 degrees due to pain, large bilateral effusions, warm Ankles: Unable to dorsiflex or plantar-flex due to pain, large bilateral effusions, warm Feet: MTP warmth and swelling R>L w/ TTP and decreased ROM of 1st MTP bilaterally due to pain. Laboratory: Recent Labs 07/11/16 0735 07/10/16 1000 07/10/16 0040 WBC 8.1 9.5 10.8* HGB 7.5* 7.7* 8.4* HCT 22.3* 22.9* 25.7* PLATELET 124* 117* 114* Recent Labs 07/11/16 0735 07/10/16 0040 07/09/16 1751 NA 129* 136 137 K 5.3* 4.4 4.0 CL 93* 99 97* CO2 19* 19* Not Perf BUN 63* 53* 57* CREATININE 1.82* 1.98* 2.14* Recent Labs 07/10/16 1000 07/09/16 1751 AST 25 30 ALT 18 21 ALKPHOS 101 103 BILITOT 0.5 0.5 BILIDIR 0.2 0.2 Recent Labs 07/11/16 0735 07/10/16 1000 07/10/16 0040 07/09/16 1751 CALCIUM 8.9 -- 8.7 9.4 MAGNESIUM 1.12* 0.86 0.78 -- PHOS -- 3.7 -- -- Microbiology: Synovial Fluid: Nucleated Cells: [id number] Neut Abs: [id number] Crystal: many intracellular and extracellular uric acid crystals seen Assessment/Plan: Bucky Acevedo is a 56 y.o. male w/ a Hx of HMGCoA reductase Ab necrotizing myositis(2008) treated in the past with steroids, IVIG, MTX, MMF, RTX(2014), and currently on monthly IVIGand azathioprine 50mg QD(last CK 316), admitted with worsening bilateral ankle/knee pain w/ synovialfluid consistent with polyarticular gout. Mr. Acevedo started on prednisone yesterday and had a small amount of subjective improvement of his joint pain. He will begin to work with physical therapy later today. There is no sign of active involvement of his myositis at this time(downtrending CK). We will continue treatment at 40mg prednisone for a total of 7 days, then 20mg of prednisone until his pain is gone, and then 10mg for 5 days after.He will start allopurinol in the outpatient setting when he follows up with Dr. Prieto. #Polyarticular Gout - prednisone 40mg x7 days, 20mg until symptoms resolve, then 10mg for 5 days - follow up with outpatient rheumatology. Thank your for the consult, and letting us be involved in Mr. Acevedo's care. SPIKE DOOELY MD Medicine Resident: PGY2 07/11/2016 ATTENDING ADDENDUM: I have seen the patient and reviewed Dr. Dooley's above history and I agree with the details as written. The assessment and plan were formulated in discussion with me and I agree with them as documented. Vineet Moore MD - 07/11/2016 8:42 AM EST Internal Medicine Consultation - Daily Progress Note Primary Service: Neuro Reason for Consult: GUY, fever Active Problem List: # Necrotizing myopathy # Polyarticular gout # GUY # Anemia Mendez 24 Hr Events/Subjective: - Was quite thirsty yesterday, still somewhat thirsty today - Joint pain slightly better though still significant. Can move legs and ankles slightly more than prior. - Denies dyspnea, chest pain or back pain Inpatient Meds: Scheduled Meds: ??? polyethylene glycol (MIRALAX)oral powder 17 g Oral Daily ??? predniSONE 40 mg Oral Daily ??? atenolol 50 mg Oral Daily ??? terazosin 5 mg Oral Nightly ??? sodium chloride 0.9 % 5 mL Intravenous BID ??? enoxaparin 40 mg Subcutaneous Nightly ??? insulin lispro 2-8 Units Subcutaneous Q4H MAGALI ??? insulin glargine 40 Units Subcutaneous Nightly ??? pantoprazole 40 mg Intravenous Daily Continuous Infusions: PRN Meds:.HYDROmorphone, sodium chloride 0.9 %, lidocaine, senna-docusate, ondansetron OR ondansetron, dextrose 50% OR glucagon (human recombinant), acetaminophen Vitals: Last value Range last 24 hrs Temperature Temp: 36.9 ??C (98.4 ??F) Temp: [36.5 ??C (97.7 ??F)-37.6 ??C (99.7 ??F)] Heart Rate Heart Rate: 65 Heart Rate: [64-77] Blood Pressure BP: 112/62 BP: (107-147)/(50-67) Respiratory Rate Resp: 18 Resp: [18-20] SpO2 SpO2: 97 % SpO2: [95 %-99 %] I's and O's: Intake/Output Summary (Last 24 hours) at 07/11/16 0842 Last data filed at 07/11/16 0800 Gross per 24 hour Intake 2720 ml Output 900 ml Net 1820 ml Since admission: net +4.7 Weights: Patient Vitals for the past 168 hrs: Weight 07/09/16 1516 (!) 122.5 kg (270 lb) Physical Examination: Gen: ANOx3, NAD, WD/WN Eyes: EOMI, anicteric ENT: MMM, no lesions CV: RRR, Normal S1/S2, systolic murmur 3/6 Respiratory: Good Aeration, CTAB, -w/r/r GI: Soft, NT/ ND, + BS, -HSM Skin: Warm and Dry, no lesions Neuro: no pronator drift, 3/5 strength in LEs (partially limited by pain) Musculoskeletal: Swelling around knees and ankles, markedly tender. No redness. Ext: No tenderness over calf. No tenderness over kim. No tightness. 2+ edema up to knees. Labs: Recent Labs 07/11/16 0735 07/10/16 1000 07/10/16 0040 WBC 8.1 9.5 10.8* HGB 7.5* 7.7* 8.4* HCT 22.3* 22.9* 25.7* PLATELET 124* 117* 114* No results for input(s): INR in the last 168 hours. Recent Labs 07/11/16 0735 07/10/16 0040 07/09/16 1751 NA 129* 136 137 K 5.3* 4.4 4.0 CL 93* 99 97* CO2 19* 19* Not Perf BUN 63* 53* 57* CREATININE 1.82* 1.98* 2.14* Recent Labs 07/10/16 1000 07/09/16 1751 AST 25 30 ALT 18 21 ALKPHOS 101 103 BILITOT 0.5 0.5 BILIDIR 0.2 0.2 Recent Labs 07/11/16 0735 07/10/16 1000 07/10/16 0040 07/09/16 1751 CALCIUM 8.9 -- 8.7 9.4 MAGNESIUM -- 0.86 0.78 -- PHOS -- 3.7 -- -- Recent Labs 07/10/16 1752 07/10/16 1000 07/09/16 1751 CK 203* 242* 405* Recent Labs 07/10/16 1000 TSH 1.08 Recent Labs 03/06/16 1146 HA1C 6.3* Lab Results Component Value Date CHLPL 208 (H) 03/06/2016 HDL 27 (L) 03/06/2016 CHOLHDL 7.7 03/06/2016 TRIG 346 (H) 03/06/2016 LDLCHOL 112 (H) 03/06/2016 Micro: Urine cx 07/09: coag - staph Blood cx 07/09: NGTD New Diagnostic Studies: CXR 07/09: no pathology Assessment: Bucky Acevedo is a 56 y.o. male w/ PMH notable for HTN, HLD, DM2, and necrotizing statin myopathywho was admitted with lower extremity weakness but also found to have fever and GUY. GUY likely due to dehydration from viral infection plus lisinopril/HCTZ exacerbated by myoglobin and uric acid. We re commend reassessing his BMP and urine studies, then giving 1L of NS (this should provide more intravascular volume than free water intake). We will see the impact on his hyponatremia (likely from free water intake), rising BUN, improving creatinine and high uric acid (which can also cause GUY). He has2+ LE edema but at this point, it is likely to be secondary to the massive lower extremity inflammatory response. Recommendations: # GUY - Probably has some baseline CKD from HTN and DM2 - In setting of dehydration plus lisinopril/HCTZ/furosemide plus uricemia - Atenolol might be blunting tachycardic response - Agree with holding lisinopril/HCTZ - Did not get IV fluid 07/10, but took in 4L of water orally - BUN worse from 07/10. Creatinine better from 07.10. - Recommend bolus 1L NS. Avoid overaggressive free water oral intake. - Get urine lytes/urine creatinine and another BMP - Check uric acid daily - Check phos daily - Check BMP after 1L of fluid - If creatinine does not come down, may need to get retroperitoneal US to assess for stones (though no back pain) - If uric acid does not come down, can consider furosemide ?? # Fever / polyarticular gout - Crystal proven - On prednisone. Rheumatology following ?? # Anemia - Followed by heme/onc, no clear etiology despite bone marrow biopsy - If continuing to downtrend, consider GI involvement: ([facility]'s on last EGD 2015, hemorrhoids and polyp on colo 2013) - If GI bleeding present, may also explain BUN elevation, but hgb fairly stable. # Constipation - Recommend Miralax prn Case was discussed with Dr. Meyer who agrees with recommendations as documented above. Recommendations relayed to primary steam gigger. X Consult service will continue to follow patient. Recommendations are above, please page if further consultation required. VINEET MOORE MD Internal Medicine, PGY3 07/11/2016 Consult pager #[phone] Associated attestation - Brian Meyer MD - 07/11/2016 4:27 PM EST Attending staff follow-up documentation Please see Dr. Moore's note for details of the 24hr events, current issues and clinical course. I have discussed, reviewed and agree with the documented history , physical findings, Assessment and Plan of care. I have examined the patient myself on and reviewed all labs and studies personally. Additions to the history, physical, assessment and plan include the following: GUY/polyarticular gout with as primary reasons for hospitalization, reasonable to transfer to medicine service today. O/W plan as above. Derrell Malone MD - 07/11/2016 7:06 AM EST Neurology Note - 07/11/2016 Patient name: Bucky Acevedo Date of : 1960 PCP: Jazmine Baer MD ID: Bucky Acevedo is a 56 y.o. man with hx necrotizing statin myopathy, HTN, HLD, T2DM, GERD, Gout, who presents with progressive pain and weakness of bilateral LEs. Active Issues: Bilateral leg pain and secondary weakness Fever GUY Secondary issues: HTN HLD T2DM GERD Gout Interval Events: - Orthopedics consult: unlikely compartment syndrome - Rheumatology consut: suggestive of polyarticular gout, aspirated knee joint as well - Serum Uric acid 13.3 - Joint aspirate with uric acid crystals; 16k PMNs. No organisms on gram stain - Medicine consult: agree with rheumatology involvement, send uric acid level. Hydrate for GUY. - Started on Prednisone 40 mg daily - Had 3L in yesterday AM, 500 cc in overnight; 1100 cc out. States he is drinking multiple cups of his Liter beverage container daily; already on 2nd Liter for today as of time of rounding - GUY slowly improving after prodigious oral hydration - Has been afebrile in last 24 hours - Urine culture with 10-49k CoNS - WBC down to 8.1 - Hemoglobin stable 7.5 today - Creatinine down to 1.82 today, K up to 5.3 - Blood glucoses 150 to 250. - Subjectively right knee feels less painful, left feels about the same Physical Exam: Vitals: Temp: [36.5 ??C (97.7 ??F)-37.6 ??C (99.7 ??F)] Heart Rate: [64-77] Resp: [18-20] BP: (107-147)/(50-67) SpO2: [95 %-99 %] Heart Rate from SPO2: [86 bpm] Gen: Patient of apparent stated age, well nourished, well developed, awake, alert, NAD Neck: Supple, no meningismus, no carotid bruit, no occipital tenderness Card: RRR, SMITA Resp: Normal respiratory effort, frequent non-productive coughs Abd: Obese, soft, nontender, nondistended Ext: Bilateral knee edema, with tenderness to palpation along joint line, as well as around patella bilaterally. 2+ Pitting edema at ankles, ankle joint lines also TTP Neuro Exam: MS: AAOx4, clear language, no dysarthria, follows simple and complex commands CN: Pupils 4mm ERRL, EOMI, visual cano full to confrontation Facial sensation intact to soft touch, temperature, vibration, no facial asymmetry Hearing intact to tuning fork Palate elevates symmetrically, tongue protrudes midline SCM and trap strength intact Motor: Normal bulk and tone. 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 3/5 R, 3/5 L Knee flexion 5/5 R, 5/5 L Foot dorsiflexion - NB: Today much more limited by pain than yesterday 5/5 R, 5/5 L Foot plantar flexion Sensation: Intact to light touch, temperature, and vibration throughout Reflexes: DTRs 2+ R, 2+ L Biceps 2+ R, 2+ L Brachioradialis 2+ R, 2+ L Triceps 1+ R, 1+ L Patellar Trace R, Trace L Achilles tendon Toes - Mute bilaterally Coordination: Finger to nose intact, no dysmetria Rapid alternating movements & finger tapping smooth and symmetric No tremor Gait: Not assessed Labs: Recent Results (from the past 24 hour(s)) POCT Glucose Result Value Ref Range POC Glucose 136 65 - 199 mg/dL Smear Review Report Result Value Ref Range Smear Review Report [id number] Location: [facility]; [facility]; A The signing pathologist has (i) examined the relevant preparation(s) for the specimen(s) and (ii) rendered or confirmed the diagnosis(es). . Smear Review DIAGNOSIS Anemia, thrombocytopenia. No diagnostic morphologic features for hemolysis. Electronically signed by: Calos Cotto MD Verified: 07/10/2016 Hematopathologist DISCUSSION Although the peripheral blood smear findings do not suggest the presence of significant intra- or extravascular hemolysis, suggest further evaluation with LDH, bilirubin, reticulocyte count, haptoglobin, DIC screen and direct antiglobulin test (if not already done) for definitive evaluation if RBC hemolysis is suspected clinically. See e-DH: LAB and PATHOLOGY, Lab Results, CBC and manual differential. ADDITIONAL STUDIES Not performed CLINICAL INFORMATION Anemia, thrombocytopenia , ? hemolysis . Magnesium Result Value Ref Range Magnesium 0.86 0.69 - 1.07 mmol/L CK Result Value Ref Range CK, Total 242 (H) 0 - 200 unit/L Phosphorus Result Value Ref Range Phosphorus 3.7 2.5 - 4.5 mg/dL TSH Result Value Ref Range TSH 1.08 0.27 - 4.20 mcIU/mL Peripheral Smear Review Result Value Ref Range Periph Smear Rev See Comment Hemogram Result Value Ref Range WBC 9.5 4.0 - 9.5 x10(3)/mcL RBC 2.71 (L) 4.58 - 5.54 x10(6)/mcL Hemoglobin 7.7 (L) 13.7 - 16.5 gm/dL Hematocrit 22.9 (L) 40.5 - 48.5 % MCV 84.5 82.9 - 93.1 fL MCH 28.4 27.5 - 32.1 pg MCHC 33.6 32.0 - 35.7 gm/dL Platelets 117 (L) 145 - 357 x10(3)/mcL RDWSD 51.2 (H) 36.0 - 45.0 fL RDWCV 16.4 (H) 11.4 - 13.8 % MPV 11.1 7.6 - 12.9 fL nRBC % Auto 0.0 % nRBC Abs Auto 0.000 0.000 - 0.000 x10(3)/mcL Differential, Automated Result Value Ref Range Neutrophils % 88.8 % Neutr Abs (ANC) 8.45 (H) 1.70 - 6.10 x10(3)/mcL Lymphocytes % 2.7 % Lymphocytes Abs 0.3 (L) 0.9 - 3.2 x10(3)/mcL Monocytes % 6.7 % Monocyte Abs 0.6 0.3 - 0.9 x10(3)/mcL Eosinophils % 0.1 % Eosinophils Abs 0.0 0.0 - 0.4 x10(3)/mcL Basophils % 0.2 % Basophils Abs 0.0 0.0 - 0.1 x10(3)/mcL Immature Gran % 1.50 % Tamara Gran Abs 0.14 (H) 0.00 - 0.04 x10(3)/mcL Hepatic Function Panel Result Value Ref Range Total Protein 7.5 6.1 - 8.0 gm/dL Albumin 3.1 (L) 3.2 - 5.2 gm/dL AST 25 0 - 39 unit/L ALT 18 0 - 55 unit/L Alk Phos 101 40 - 120 unit/L Total Bilirubin 0.5 0.2 - 1.3 mg/dL Bili, Direct 0.2 0.0 - 0.3 mg/dL Scan, Peripheral Blood Result Value Ref Range Plat Estimate Decreased RBC Morphology Abnormal Microcytes 1-5 /HPF POCT Glucose Result Value Ref Range POC Glucose 193 65 - 199 mg/dL Body fluid culture Synovial Fluid Result Value Ref Range Gram Stain Cytocentrifuge Gram Stain performed White Blood Cells seen No microorganisms seen. Cell Count Body Fluid Synovial Fluid Result Value Ref Range Spec Type BF Synov Fl Color BF Yellow Appearance [place] [address] /[place] [address] /mcl Neutrophil BF 96 % Lymphocyte BF 1 % Macrophage BF 3 % Tot Diff Ct BF 200 Cells Crystal Exam Body Fluid Synovial Fluid Result Value Ref Range Crystal BF Type Synovial fl Crystal BF See Comment POCT Glucose Result Value Ref Range POC Glucose 171 65 - 199 mg/dL CK Result Value Ref Range CK, Total 203 (H) 0 - 200 unit/L Uric acid Result Value Ref Range Uric Acid 13.3 (H) 3.5 - 8.5 mg/dL POCT Glucose Result Value Ref Range POC Glucose 257 (H) 65 - 199 mg/dL POCT Glucose Result Value Ref Range POC Glucose 258 (H) 65 - 199 mg/dL POCT Glucose Result Value Ref Range POC Glucose 252 (H) 65 - 199 mg/dL POCT Glucose Result Value Ref Range POC Glucose 190 65 - 199 mg/dL ABO/Rh Typing Result Value Ref Range ABORh Type A Neg Antibody screen Result Value Ref Range Ab Screen Interp Negative Expires at 2359 on: 07/14/2016 ABORH Recheck Status Result Value Ref Range ABORH Type Recheck Completed Diagnostic Tests and Imaging CXR: No acute cardiopulmonary pathology identified on chest radiograph. Knee X-rays: Joint effusion Assessment and Plan: Bucky Acevedo is a 56 y.o. 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 He also has a PMH of HTN, HLD, T2DM, GERD, Gout, and is presenting with progressive leg weakness resulting in inability to walk, in the setting of viral URI. His examination is significant for swollen knees, shins, ankles, and feet, with associated exquisitetenderness. Rheumatology aspirated the right knee, revealing PMNs and uric acid crystals. This is most consistent with bilateral symmetric gout. He is started on prednisone 40 mg daily on 07/10/16. PT and OT consulted for mobility and functionality. CK is improved with hydration, and suggests this is not an acute exacerbation of his myopathy. Pain with movement also initially concerning for compartment syndrome, orthopedics consulted, no indication at this time for fasciotomy. He does have a fever with an GUY. UA sent, and blood cultures as well. Continuing hydration and monitoring BMP. Regarding black stools, his hemoglobin appears to be near his baseline, ~8. He is also aggressively hydrating, and he is likely having some dilutional lowering of level. Holding iron supplements for now. He is not having prodigious loose stools as he had at the beginning of his viral prodrome. # Bilateral LE Weakness 2/2 polyarticular gout - On 40 mg daily prednisone - No NSAIDs given GUY - CK normal, less likely myositis - Appreciate orthopedics recommendations - Appreciate rheumatology recommendations - Tylenol prn for mild pain - dilaudid 2 mg Q4 prn for moderate-severe pain (holding NSAIDs in setting of GUY) - PT/OT - zofran prn - consider DVT duplex studies # Black stools - Holding iron - Monitoring CBC daily # GUY - Aggressively hydrate; he is doing this on his own via PO intake - Holding Home Lasix - trend BMP daily - Holding home Lisinopril/HCTZ for now - I/O Q shift - daily weight ?? # Fever - Blood, urine cultures in process - Viral DFA, Flu swabs negative # DMII - patient came in hypoglycemic; home night lantus halved to 40 units - ISS - Q4 glucose checks - Holding Home glipizide while inpatient # Other: - Holding Home Ferrous gluconate for now (patient complained of some black tarry stools which may becausing these symptoms) - Holding Home azathioprine 100 mg Daily; possibly elevated uric acid levels - Holding home HCTZ/lisinopril () given normotension currently - DVT ppx: lovenox 40 mg SC QD - Home atenolol 50 mg QD for HTN - Protonix 40 mg QD for GI protection - Terazosin for BPH - Diet: Carb Controlled diet - Dispo: Consider transfer to medicine ?? FULL CODE Derrell Malone MD Neurology Pager [phone] 07/11/2016 Associated attestation - Celso Casiano MD - 07/11/2016 12:36 PM EST I have seen the patient and reviewed the resident's above history and I agree with the details as written. The assessment and plan were formulated in discussion with me and I agree with them as documented. Sona Mao MD, OT - 07/10/2016 3:13 PM EST Occupational Therapy Note: OT referral received and chart reviewed. Pt not appropriate to participate in OT evaluation as he currently has bedrest orders and is being worked up for possible compartment syndrome. Will complete OTevaluation when activity orders are liberalized and pt is appropriate to participate. Sona Rivero, OT Pager [phone] Nkechi Urbano PT - 07/10/2016 3:00 PM EST Physical Therapy Contact Note Consult received, history reviewed in eDH. Unable to complete initial PT assessment at this time secondary to bedrest orders. Will follow up to re- attempt when appropriate. Nkechi Urbano PT DPT Pager #[phone] 07/10/16 Physical Therapy Rehabilitation Department Derrell Malone MD - 07/10/2016 6:55 AM EST Neurology Note - 07/10/2016 Patient name: Bucky Acevedo Date of : 1960 PCP: Jazmine Baer MD ID: Bucky Acevedo is a 56 y.o. man with hx necrotizing statin myopathy, HTN, HLD, T2DM, GERD, Gout, who presents with progressive pain and weakness of bilateral LEs. Active Issues: Bilateral leg pain and secondary weakness Fever GUY Secondary issues: HTN HLD T2DM GERD Gout Interval Events: - Admitted to neurology floor - Viral DFA, Flu swabs negative. - GUY slowly improving after prodigious oral hydration - Febrile to 38.4 this AM. Blood cultures sent. - Progressive swelling and pain in the bilateral LEs. - Orthopedics, rheumatology consults today Physical Exam: Vitals: Temp: [36.8 ??C (98.2 ??F)-38.4 ??C (101.1 ??F)] Heart Rate: [68-98] Resp: [11-29] BP: (126-163)/(49-82) SpO2: [97 %-100 %] Heart Rate from SPO2: [71 bpm-96 bpm] Gen: Patient of apparent stated age, well nourished, well developed, awake, alert, NAD Neck: Supple, no meningismus, no carotid bruit, no occipital tenderness Resp: Normal respiratory effort, frequent non-productive coughs Abd: Obese, soft, nontender, nondistended Ext: Bilateral knee edema, with tenderness to palpation along joint line, as well as around patella bilaterally. 2+ Pitting edema at ankles, ankle joint lines also TTP Neuro Exam: MS: AAOx4, clear language, no dysarthria, follows simple and complex commands CN: Pupils 4mm ERRL, EOMI, visual cano full to confrontation Facial sensation intact to soft touch, temperature, vibration, no facial asymmetry Hearing intact to tuning fork Palate elevates symmetrically, tongue protrudes midline SCM and trap strength intact Motor: Normal bulk and tone. 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 3/5 R, 3/5 L Knee flexion 5/5 R, 5/5 L Foot dorsiflexion - NB: Today much more limited by pain than yesterday 5/5 R, 5/5 L Foot plantar flexion Sensation: Intact to light touch, temperature, and vibration throughout Reflexes: DTRs 2+ R, 2+ L Biceps 2+ R, 2+ L Brachioradialis 2+ R, 2+ L Triceps 1+ R, 1+ L Patellar Trace R, Trace L Achilles tendon Toes - Mute bilaterally Coordination: Finger to nose intact, no dysmetria Rapid alternating movements & finger tapping smooth and symmetric No tremor Gait: Not assessed Labs: Recent Results (from the past 24 hour(s)) TSH Result Value Ref Range TSH 1.11 0.27 - 4.20 mcIU/mL Sedimentation rate Result Value Ref Range Sed Rate 27 (H) 0 - 15 mm/hr CRP, acute inflammation Result Value Ref Range CRP >300.0 (H) <=4.9 mg/L Basic Metabolic Panel (non-fasting) Result Value Ref Range Glucose Lvl 53 (CRIT) 65 - 199 mg/dL BUN 57 (H) 10 - 20 mg/dL Creatinine 2.14 (H) 0.80 - 1.50 mg/dL Sodium 137 135 - 145 mmol/L Potassium 4.0 3.5 - 5.0 mmol/L Chloride 97 (L) 98 - 107 mmol/L CO2 Not Perf 22 - 31 mmol/L Anion Gap Not Calculated 5 - 15 mmol/L Calcium 9.4 8.5 - 10.5 mg/dL Estimated GFR 32 (L) >=60 CK Result Value Ref Range CK, Total 405 (H) 0 - 200 unit/L Hepatic Function Panel Result Value Ref Range Total Protein 8.9 (H) 6.1 - 8.0 gm/dL Albumin 3.6 3.2 - 5.2 gm/dL AST 30 0 - 39 unit/L ALT 21 0 - 55 unit/L Alk Phos 103 40 - 120 unit/L Total Bilirubin 0.5 0.2 - 1.3 mg/dL Bili, Direct 0.2 0.0 - 0.3 mg/dL Hemogram Result Value Ref Range WBC 6.5 4.0 - 9.5 x10(3)/mcL RBC 3.45 (L) 4.58 - 5.54 x10(6)/mcL Hemoglobin 9.8 (L) 13.7 - 16.5 gm/dL Hematocrit 29.6 (L) 40.5 - 48.5 % MCV 85.8 82.9 - 93.1 fL MCH 28.4 27.5 - 32.1 pg MCHC 33.1 32.0 - 35.7 gm/dL Platelets 147 145 - 357 x10(3)/mcL RDWSD 52.4 (H) 36.0 - 45.0 fL RDWCV 16.7 (H) 11.4 - 13.8 % MPV 12.0 7.6 - 12.9 fL nRBC % Auto 0.0 % nRBC Abs Auto 0.000 0.000 - 0.000 x10(3)/mcL Differential, Automated Result Value Ref Range Neutrophils % 82.6 % Neutr Abs (ANC) 5.39 1.70 - 6.10 x10(3)/mcL Lymphocytes % 9.6 % Lymphocytes Abs 0.6 (L) 0.9 - 3.2 x10(3)/mcL Monocytes % 5.5 % Monocyte Abs 0.4 0.3 - 0.9 x10(3)/mcL Eosinophils % 1.7 % Eosinophils Abs 0.1 0.0 - 0.4 x10(3)/mcL Basophils % 0.3 % Basophils Abs 0.0 0.0 - 0.1 x10(3)/mcL Immature Gran % 0.30 % Tamara Gran Abs 0.02 0.00 - 0.04 x10(3)/mcL Rapid Influenza A/B PCR Result Value Ref Range Influenza A PCR Not Detected Not Detected Influenza B PCR Not Detected Not Detected Resp PCR Source [employer] Swab Rapid Respiratory Virus Antigen Panel Nasopharyngeal Swab Result Value Ref Range Rapid Virus Antigen Stain DFA Negative for Adenovirus Antigen DFA Negative for Human Metapneumovirus Antigen DFA Negative for Influenza Virus Type A Antigen DFA Negative for Influenza Virus Type B Antigen DFA Negative for Parainfluenza Virus Type 1 Antigen DFA Negative for Parainfluenza Virus Type 2 Antigen DFA Negative for Parainfluenza Virus Type 3 Antigen DFA Negative for Respiratory Syncytial Virus Antigen POCT Glucose Result Value Ref Range POC Glucose 99 65 - 199 mg/dL Urinalysis with reflex Culture Result Value Ref Range Glucose UA Negative Negative mg/dL Protein UA Negative Negative mg/dL Bilirubin UA Negative Negative mg/dL Urobilinogen UA Normal Normal mg/dL pH UA 5.0 5.0 - 8.0 Blood UA Negative Negative mg/dL Ketones UA Negative Negative mg/dL Nitrite UA Negative Negative Leukocytes UA Large (A) Negative mcL Appearance UA Clear Clear Spec [place] UA 1.017 1.002 - 1.030 Color UA Yellow Yellow RBC UA 3 0 - 3 /HPF WBC UA 41 (H) 0 - 3 /HPF Squam Epith UA <1 <=4 /HPF Hyaline Cast UA 1 0 - 2 /LPF Culture Reflexed Yes Urine Hold Result Value Ref Range Urine Hold Sample in lab. POCT Glucose Result Value Ref Range POC Glucose 118 65 - 199 mg/dL Hemogram Result Value Ref Range WBC 10.8 (H) 4.0 - 9.5 x10(3)/mcL RBC 2.99 (L) 4.58 - 5.54 x10(6)/mcL Hemoglobin 8.4 (L) 13.7 - 16.5 gm/dL Hematocrit 25.7 (L) 40.5 - 48.5 % MCV 86.0 82.9 - 93.1 fL MCH 28.1 27.5 - 32.1 pg MCHC 32.7 32.0 - 35.7 gm/dL Platelets 114 (L) 145 - 357 x10(3)/mcL RDWSD 52.0 (H) 36.0 - 45.0 fL RDWCV 16.6 (H) 11.4 - 13.8 % MPV 11.5 7.6 - 12.9 fL nRBC % Auto 0.0 % nRBC Abs Auto 0.000 0.000 - 0.000 x10(3)/mcL Differential, Automated Result Value Ref Range Neutrophils % 93.9 % Neutr Abs (ANC) 10.10 (H) 1.70 - 6.10 x10(3)/mcL Lymphocytes % 1.3 % Lymphocytes Abs 0.1 (L) 0.9 - 3.2 x10(3)/mcL Monocytes % 3.2 % Monocyte Abs 0.3 0.3 - 0.9 x10(3)/mcL Eosinophils % 0.0 % Eosinophils Abs 0.0 0.0 - 0.4 x10(3)/mcL Basophils % 0.2 % Basophils Abs 0.0 0.0 - 0.1 x10(3)/mcL Immature Gran % 1.40 % Tamara Gran Abs 0.15 (H) 0.00 - 0.04 x10(3)/mcL Basic Metabolic Panel (non-fasting) Result Value Ref Range Glucose Lvl 117 65 - 199 mg/dL BUN 53 (H) 10 - 20 mg/dL Creatinine 1.98 (H) 0.80 - 1.50 mg/dL Sodium 136 135 - 145 mmol/L Potassium 4.4 3.5 - 5.0 mmol/L Chloride 99 98 - 107 mmol/L CO2 19 (L) 22 - 31 mmol/L Anion Gap 18 (H) 5 - 15 mmol/L Calcium 8.7 8.5 - 10.5 mg/dL Estimated GFR 35 (L) >=60 Magnesium Result Value Ref Range Magnesium 0.78 0.69 - 1.07 mmol/L POCT Glucose Result Value Ref Range POC Glucose 137 65 - 199 mg/dL Diagnostic Tests and Imaging CXR: No acute cardiopulmonary pathology identified on chest radiograph. Assessment and Plan: Bucky Acevedo is a 56 y.o. 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 He also has a PMH of HTN, HLD, T2DM, GERD, Gout, and is presenting with progressive leg weakness resulting in inability to walk, in the setting of viral URI. His examination is significant for swollen knees, shins, ankles, and feet, with associated exquisitetenderness. CK at his baseline suggests this is not an acute exacerbation of his myopathy. CRP >300 suggests other rheumatologic process, will consult rheumatology. Holding home azathioprine for now. Pain with movement also concerning for compartment syndrome, orthopedics consulted. He does have a fever with an GUY. UA sent, and blood cultures as well. Appreciate medicine consult. Regarding black stools, his hemoglobin appears to be at his baseline, ~mid 8s. # Bilateral LE weakness - CK normal, less likely myositis - Appreciate orthopedics recommendations - Appreciate rheumatology recommendations - Tylenol prn for mild pain - dilaudid 2 mg Q4 prn for moderate-severe pain (holding NSAIDs in setting of GUY) - PT/OT - zofran prn - consider DVT duplex studies # GUY - IVF @ 150 cc/hr - Holding Home Lasix - trend BMP - Holding home Lisinopril/HCTZ for now - I/O Q shift - daily weight ?? # Fever - Blood, urine cultures in process - Viral DFA, Flu swabs negative # DMII - patient came in hypoglycemic; home lantus halved to 40 units - ISS - Q4 glucose checks - Holding Home glipizide while inpatient # Other: - Holding Home Ferrous gluconate for now (patient complained of some black tarry stools which may becausing these symptoms) - Holding Home azathioprine 100 mg Daily - DVT ppx: lovenox 40 mg SC QD - Home atenolol 50 mg QD for HTN - Protonix 40 mg QD for GI protection - Terazosin for BPH - Diet: Daily Healthy Menu ?? FULL CODE Derrell Malone MD Neurology Pager [phone] 07/10/2016 Associated attestation - Celso Casiano MD - 07/10/2016 10:31 AM EST I have seen the patient and reviewed the resident's above history and I agree with the details as written. The assessment and plan were formulated in discussion with me and I agree with them as documented. Celso Casiano MD documented in this encounter H&P Notes Bismark Rivera MD - 07/09/2016 11:33 PM EST PLEASE REFER TO CONSULT NOTE DATED ON 07/09/16 FOR COMPLETED DETAILS. In short, patient is being admitted for suspected myopathy of his LE. He has a history of necrotizing statin myopathy with marked elevated CK, and presentation of LE weakness and pain is similar in presentation. Patient does have elevated CK though not at the degree as they were before. However, his CRP >300 indicating active inflammatorey process going on. His infectious work-up has been negativeso far (DFA, influenza A/B) and CXR shows nothing acute. Patient does appear dry and has an elevatedBUN/Cr concerning for GUY. He is unable to walk d/t the extent of his LE pain. Will admit him for a suspected myopathy. Will continue IV hydration for his GUY and will order PT/Nida assess for needs. PLAN: #Possible recurrent acute myopathy -consider immunosuppressive therapy -trend CK -Tylenol prn for mild pain -dilaudid 2 mg Q4 prn for moderate-severe pain (holding NSAIDs in setting of GUY) -PT/OT -zofran prn -consider DVT duplex studies GUY -IVF @ 150 cc/hr -Holding Home Lasix -trend BMP -Holding home Lisinopril/HCTZ for now -I/O Q shift -daily weight DMII -patient came in hypoglycemic so I have halved his home night lantus dose to 40 units -ISS Q4 sugar checks for now -Holding Home glipizide -adjust ISS as appropriate to optimize Glucose control Other: -Holding Home Ferrous gluconate for now (patient complained of some black tarry stools which may be causing these symptoms) -Continuing Home azathioprine 100 mg Daily -DVT ppx: lovenox 40 mg SC QD -Home atenolol 50 mg QD for HTN -Protonix 40 mg QD for GI protection -Terazosin for BPH -Diet: Daily Healthy Menu FULL CODE Bismark Rivera MD PGY-2 Neurology Resident Associated attestation - Celso Casiano MD - 07/10/2016 10:36 AM EST I certify that the patient requires:Inpatient care status due to severe bilateral lowerextermity weakness and pain .The patient requires frequent neurologic monitoring. The patient is likely to remain in the hospital for more than two nights. See Dr. Malone's ED consult note and this mornings progressnote for more details. documented in this encounter ED Notes Margi Caicedo MD - 07/09/2016 9:47 PM EST Brief Attending Note I cared for the patient with the resident physician. Please see Dr. Dunn's note, associated with the encounter, for more details. HPI: Bucky Acevedo is a 56 y.o. hx myopathy in past who presents to the ED with BLE weakness similar to past myopathy episodes. ROS: Pertinent positives and negatives are included in the history of present illness, otherwise 10 systems are reviewed and negative Gen: well appearing, NAD HENT: atraumatic, OP clear, mmm Pulm: CTA francis, no respiratory distress Card: RRR Abd: soft, nt Skin: warm and dry Neuro: 5/5 strength BUE, 3/5 strength BLE, decreased patellar reflexes, sensation intact MS: No obvious deformity Psych: Normal mood Assessment: 56 yo M hx myopathy with sxs similar to past myopathy. To be admitted by neurology service. Margi Caicedo MD 07/09/16 2149 You Cardenas - 07/09/2016 3:47 PM EST Chief Complaint Patient presents with ??? Extremity Weakness HPI Comments: 56yo man with history of autoimmune statin myopathy that presents today with worseninglower extremity weakness. He states that 1 week ago he started to experience cold like symptoms including nasal congestion and cough that he feels is improving. At the same time as those symptoms he started to experience weakness in his right lower extremity (mostly around the knee), but was still able to ambulate with assistance. Then on he started to experience weakness in his left lower extremity, and this inhibited him from ambulating. He has not been able to be weight bearing since , and his feels things have been getting worse. In regards to his cold like symptoms he states all he is still experiencing is a cold, but this morning felt that he had a fever and at home temperature was 100.2. He was started on azathioprine 2 weeks ago, no other recent medication changes. He also has a history of reported black tarry stools for the past few week, and reports that he is followed by GI, and is planned for an endoscopic procedure in a few weeks. He reports a new onset of loose stools with 3 episodes within the past 24 hours. He denies any fresh red blood in his stool. He reports that he still has full sensation in his lower extremities. He denies any headaches, vision change, nausea, vomiting, abdominal pain. The history is provided by the patient. Allergies Allergen Reactions ??? Methotrexate Hives, Itching and Rash ??? Morphine Itching ??? Bmlzztk-Ilx-Yre Reductase Inhibitors Myopathy Review of Systems Constitutional: Positive for activity change and fever. Negative for appetite change, chills, diaphoresis, fatigue and unexpected weight change. HENT: Negative for congestion, ear discharge, ear pain, facial swelling, hearing loss, postnasal drip, sneezing, sore throat and trouble swallowing. Eyes: Negative for pain and visual disturbance. Respiratory: Positive for cough. Negative for choking, shortness of breath and wheezing. Cardiovascular: Negative. Negative for chest pain, palpitations and leg swelling. Gastrointestinal: Positive for diarrhea. Negative for abdominal pain, blood in stool, constipation, nausea and vomiting. Endocrine: Negative. Genitourinary: Negative. Musculoskeletal: Positive for arthralgias and gait problem. Negative for joint swelling, myalgias, neck pain and neck stiffness. Skin: Negative for color change, pallor and rash. Allergic/Immunologic: Positive for immunocompromised state. Neurological: Positive for weakness. Negative for dizziness, tremors, seizures, syncope, facial asymmetry, speech difficulty, light-headedness, numbness and headaches. Hematological: Negative. Physical Exam Constitutional: He is oriented to person, place, and time. He appears well- developed and well-nourished. No distress. HENT: Head: Normocephalic and atraumatic. Right Ear: External ear normal. Left Ear: External ear normal. Nose: Nose normal. Mouth/Throat: Oropharynx is clear and moist. Eyes: EOM are normal. Pupils are equal, round, and reactive to light. Neck: Normal range of motion. Neck supple. No JVD present. No thyromegaly present. Cardiovascular: Normal rate, regular rhythm and normal heart sounds. Pulmonary/Chest: Effort normal and breath sounds normal. Abdominal: Soft. Bowel sounds are normal. He exhibits no distension. There is no tenderness. There is no rebound and no guarding. Genitourinary: Rectum normal. Rectal exam shows guaiac negative stool. Musculoskeletal: Decreased bilateral lower extremity ROM -Tenderness in bilateral knees with ROM Neurological: He is alert and oriented to person, place, and time. He has normal reflexes. No cranial nerve deficit. Coordination normal. Skin: Skin is warm and dry. He is not diaphoretic. Procedures MDM Number of Diagnoses or Management Options Diagnosis management comments: 56yo man with history of autoimmune statin myopathy that presented today with worsening lower extremity weakness that started last week, and has since progressed bilaterally to cause him to not be able to ambulate. He also reported cold like symptoms that started last week, but are now improving. He also has been experiencing black tarry stools for the past 2 weeks, and had new onset of loose stool today. On examination he was in no acute distress, he had a dry non productive cough, vitals WNL, he did not have full ROM in his lower extremities, but no focal deficits noted. He was guaiac negative. He was evaluated by neurology. He had a CBC, BMP, UA, rapid respiratory virus panel, rapid influenza, CRP, ESR, TSH, CK, HFP, and a CXR. His CXR was WNL. His rapid influenza returned negative. He was found to have a CK of 405, ESR 27, CRP >300, BUN 57, CR. 2.14. He received IV fluid x2, and dilaudid 0.5mg x3 for pain. Neurology was contacted, and he will be admitted to their service. ED Course: ED Course -CBC, BMP, UA, CXR, Rapid respiratory virus, CRP, ESR, TSH, CK, HFP -Dilaudid 0.5mg x3 -CXR: IMPRESSION No acute cardiopulmonary pathology identified on chest radiograph. -Influenza negative -CK 405, ESR 27, CRP >300, BUN 57, Cr 2.14 -Admit to neurology You Cardenas MD Resident 07/09/16 4143 Associated attestation - Margi Caicedo MD - 07/12/2016 5:20 PM EST ED ATTENDING ATTESTATION NOTE The patient was seen in conjunction with Dr. Cardenas, the resident physician. I have independently performed the mendez portions of the history and physical exam. I have reviewed the nursing notes, vital signs, and all diagnostic studies personally including labs, imaging studies and EKGs. I have discussedthe details of the case with the resident and agree with the assessment and plan as described in theresident note above unless noted otherwise in my separate note. documented in this encounter Miscellaneous Notes Care Management - Vernell Dodson MSW - 07/13/2016 1:29 PM EST The patient/career representative has been provided a list of Home Health Agencies/DME vendors which serve their preferred geographic area. A letter describing our affiliations was reviewed with them and theywere educated about their right to choose where referrals are placed. Patient requests referral to [facility]. PT/OT Start date of service is 07/16/16 Expected date of discharge: 07/13/16 Referral routed to the [facility] for matching with agency/vendor and to provide any required information. Care Management - Vernell Dodson MSW - 07/13/2016 11:23 AM EST The patient/career representative has been provided a list of Home Health Agencies/DME vendors which serve their preferred geographic area. A letter describing our affiliations was reviewed with them and theywere educated about their right to choose where referrals are placed. Patient requests referral to [facility] For PT/OT Expected date of discharge: 07/13/16 Referral routed to the [facility] for matching with agency/vendor and to provide any required information. Consult Note - Fiona Nova RN - 07/13/2016 8:27 AM EST Spoke with Igor Herrera with [id number] regarding IV infiltration and possibly accessing mediport. Dr. Herrera stated that patient was more than likely being discharged today and it was ok for patient to not have iv access. Primary nurse Norma brady. Consult Note - Fiona Nova RN - 07/13/2016 8:10 AM EST Images from the original note were not included. Infiltration/Extravasation Scale Instructions: Strikeout non-applicable grades, highlight the grade which applies to this patient by BOLD lettering and COLOR RED 2 Skin blanched Edema 1 to 6 inches (2.5 to 15 cm) in any direction Or 6 -25% of limb affected Cool to touch With or without pain Infiltration harm % for this extremity 22.75 Based on measurement calculation ( greatest measurement X divided by length of extremity multiplied by 100=%) Specific details of infiltration/extravasation Medication infiltrated Normal Saline Infiltration of any amount of ___NA irritant, ___NA____vesicant Include:Right or left extremity?Left Anterior (volar aspect) or posterior (dorsal aspect) Anterior Measurement in cm of length and width of affected area---Affected extremity 16cm x 16.5cm Measurement of Circumference in cm of Infiltrated area of affected extremity 36cm Measurement of Circumference in cm of Unaffected extremity 32cm (at same location as affected extremity) Pulses present on affected extremity Yes Medicated treatment given per policy/ order Elevate extremity Plan for continued monitoring of infiltration/extravasation Name of MD contacted Igor Herrera pager [phone] 07/13/16 9772 Name of RN contacted Norma Woodard Name of Pharmacist if consulted NA Name of Plastics MD ( if consulted) NA LOAD TALLIER CARING FOR THIS PATIENT WILL CONTINUE TO MONITOR AND WILL ASSUME CARE, VASCULAR ACCESS WILL NOT FOLLOW THIS EVENT AT THE SIGNING OF THIS NOTE. Plan of Care - Angel Campos RN - 07/13/2016 5:09 AM EST Problem: Patient Care Overview Goal: Plan of Care Review Outcome: Ongoing (Interventions Implemented as Appropriate) 07/13/16 0503 Plan of Care Review Progress progress toward functional goals as expected Coping/Psychosocial Plan Of Care Reviewed With patient OUTCOME EVALUATION NOTE: OUTCOME SUMMARY: Pt pain is improving. Mobility remains unchanged. Dulcolax given with good affect, small BM. Sodium level is improving. BG remain high and maximum coverage has been needed despite change in lantus. PLAN MOVING FORWARD: Continue to monitor, work with PT INDIVIDUALIZED FALL PREVENTION INTERVENTIONS: Patient-specific fall risk factors per assessment: [current deficits]: LE weakness, narcotics Assistance [level of assistance required for transfers and ambulation]: 2 person and walker S/P Supervision [direct monitoring required during toileting and ADLs]: rn/lumber planer Surveillance [continuous indirect monitoring]: Masimo, hourly rounding Patient-specific fall prevention interventions for sensory deficits provided, if applicable: [X] N/A CPG GOAL OUTCOME EVALUATION: Goal: Fall Prevention-Safe Patient Handling Outcome: Ongoing (Interventions Implemented as Appropriate) 07/10/16 1632 07/11/16 1109 07/12/16 0539 Daily Care Interventions Self-Care Promotion -- independence encouraged;BADL personal objects within reach -- Activity and Safety Assistive Device Front wheel walker -- -- Musculoskeletal Interventions Muscle Strengthening -- -- activity/mobility promoted;mobility in bed promoted;personal routines forBADL/IADL promoted [place] Fall Risk History of Falling -- -- -- Secondary Diagnosis -- -- -- Ambulatory Aids -- -- -- Intravenous Therapy/Heparin/Saline Lock -- -- -- Gait/Transferring -- -- -- Mental Status -- -- -- Score -- -- -- OTHER [place] Fall Risk -- -- -- Restraint Interventions Safety Promotion/Fall Prevention -- -- -- Positioning Body Position -- -- -- 07/12/16 2100 Daily Care Interventions Self-Care Promotion -- Activity and Safety Assistive Device -- Musculoskeletal Interventions Muscle Strengthening -- [place] Fall Risk History of Falling 25 Secondary Diagnosis 15 Ambulatory Aids 15 Intravenous Therapy/Heparin/Saline Lock 20 Gait/Transferring 10 Mental Status 0 Score 85 OTHER [place] Fall Risk High Restraint Interventions Safety Promotion/Fall Prevention activity supervised;fall prevention program maintained;muscle strengthening facilitated;nonskid shoes/slippers when out of bed;safety round/check completed Positioning Body Position independent Goal: Infection Control Outcome: Ongoing (Interventions Implemented as Appropriate) 07/12/16 2100 Safety Interventions Isolation Precautions standard precautions maintained Infection Prevention single patient room provided;rest/sleep promoted Coping Strategies Supportive Measures active listening utilized;problem solving facilitated;relaxation techniques promoted;self-care encouraged Goal: Discharge Needs Assessment Outcome: Ongoing (Interventions Implemented as Appropriate) 07/10/16 1631 07/12/16 1600 07/13/16 050 Discharge Needs Assessment Concerns To Be Addressed -- -- no discharge needs identified Readmission Within The Last 30 Days -- -- no previous admission in last 30 days Provider Choice List(s) Given -- -- no Equipment Needed After Discharge walker, rolling -- -- Current Health Anticipated Changes Related to Illness -- -- inability to care for self Activity/Self Care Review of Systems Equipment Currently Used at Home -- walker, rolling;shower chair;commode;wheelchair;cane, straight (raised toilet seat) -- Living Environment Transportation Available car;family or friend will provide -- -- Problem: Pain, Acute (Adult) Goal: Acceptable Pain Control/Comfort Level Patient will demonstrate the desired outcomes by discharge/transition of care. Outcome: Ongoing (Interventions Implemented as Appropriate) 07/13/16 050 Pain, Acute (Adult) Acceptable Pain Control/Comfort Level making progress toward outcome Problem: Mobility, Physical Impaired (Adult) Goal: Identify Related Risk Factors and Signs and Symptoms Related risk factors and signs and symptoms are identified upon initiation of Human Response Clinical Practice Guideline (CPG) Outcome: Ongoing (Interventions Implemented as Appropriate) 07/13/16 050 Mobility, Physical Impaired Physical Mobility, Impaired: Related Risk Factors psychosocial factor Signs and Symptoms (Physical Mobility Impaired) inability to purposefully move in environment;postural instability with activity;unsafe transfers/ambulation Goal: Enhanced Mobility Skills Patient will demonstrate the desired outcomes by discharge/transition of care. Outcome: Ongoing (Interventions Implemented as Appropriate) 07/13/16 050 Mobility, Physical Impaired (Adult) Enhanced Mobility Skills making progress toward outcome Goal: Enhanced Functionality Ability Patient will demonstrate the desired outcomes by discharge/transition of care. Outcome: Ongoing (Interventions Implemented as Appropriate) 07/13/16 050 Mobility, Physical Impaired (Adult) Enhanced Functionality Ability making progress toward outcome Plan of Care - Gabrielle Murillo RN - 07/12/2016 5:35 PM EST Problem: Patient Care Overview Goal: Plan of Care Review Outcome: Ongoing (Interventions Implemented as Appropriate) 07/12/16 1729 Plan of Care Review Progress progress toward functional goals as expected Coping/Psychosocial Plan Of Care Reviewed With patient OUTCOME EVALUATION NOTE: OUTCOME SUMMARY: Pt stable, calm and cooperative throughout shift. AAOx4. Pt c/o pain 4/10, worse with activity. Worked w PT/OT. IVF maintained. Pt still no BM. Blood sugars remain high. No apparent distress. WCTM. PLAN MOVING FORWARD: IVF Monitor labs PT/OT Pain control INDIVIDUALIZED FALL PREVENTION INTERVENTIONS: Patient-specific fall risk factors per assessment: [current deficits]: Pain and weakness Assistance [level of assistance required for transfers and ambulation]: Max of 2 Supervision [direct monitoring required during toileting and ADLs]: 1 assist Surveillance [continuous indirect monitoring]: Masimo; hourly rounding Patient-specific fall prevention interventions for sensory deficits provided, if applicable: na CPG GOAL OUTCOME EVALUATION: Plan of Care - Iasbell Edwards OT - 07/12/2016 4:34 PM EST Problem: Patient Care Overview Goal: Plan of Care Review Outcome: Ongoing (Interventions Implemented as Appropriate) 07/12/16 1609 Plan of Care Review Progress progress toward functional goals as expected Coping/Psychosocial Plan Of Care Reviewed With patient Occupational Therapy Evaluation Pertinent History of Current Problem: 56 y.o. male w/ a Hx of HMGCoA reductase Ab necrotizing myositis(2008) treated in the past with steroids, IVIG, MTX, MMF, RTX(2014), and currently on monthly IVIG and azathioprine 50mg QD(last CK 316), admitted with worsening bilateral ankle/knee pain w/ synovial fluid consistent with polyarticular gout. Precautions/Restrictions: fall (high risk for skin breakdown) Pt profile: Pt lives with his and had 4 adult sons- 3 live nearby. He has a split level home with a ramp to the second floor (which is the main level) with his kitchen, walk in shower, and bedroom. He has significant equipment at home including a w/c, walker, cane, commode, and raised toilet seat, but until this admission was walking with a cane. He has been able to drive but has been off work for several years due to medical conditions. He sometimes needs help to get out of bed from his and uses a sock aid and scenario writer for LB dressing at baseline. Assessment: Pt has been seen by OT for evaluation, please refer to associated flowsheet data for details. Pt presents with impaired ability to perform daily activities and functional mobility secondary to performance deficits in pain in francis knees and ankles restricting ability to weight bear, decreased flexibility in the trunk and adipose, severe francis LE edema and impaired sensation, decreased activity tolerance,standing tolerance, and inability to transfer due to pain. Pt completed sit to stand X2 for 30-60 seconds with mod AX2 and use of walker- pt was in significant pain in weight bearing and unable to takesteps at this time. Pt completed UB bathing sitting edge of bed with set up and required mod A for LB bathing due to pain, decreased flexibility, and edema. 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 Pt would prefer d/c to home if possible. Pt would benefit fromongoing OT interventions to increase independence with self care and progress functional mobility while hospitalized. Therapy Frequency: 3-5 times/wk Anticipated Discharge Disposition: home with assist, home with home health (pending pt progress) Pager: [phone] ISABELL EDWARDS OT 07/12/2016 Occupational Therapy Rehabilitation Department Goal: Discharge Needs Assessment Outcome: Ongoing (Interventions Implemented as Appropriate) 07/10/16 1631 07/12/16 1600 Discharge Needs Assessment Discharge Disposition home or self-care -- Activity/Self Care Review of Systems Equipment Currently Used at Home -- walker, rolling;shower chair;commode;wheelchair;cane, straight (raised toilet seat) Problem: Acute Rehab Services Goal & Intervention Plan Goal: Bathing Goal Stand Alone Therapy Goal Outcome: Ongoing (Interventions Implemented as Appropriate) 07/12/16 1628 Bathing Goal Bathing Goal, Date Established 07/12/16 Bathing Goal, Time to Achieve 2 wks Bathing Goal, Activity Type Mod I standing in shower Bathing Goal, Outcome goal ongoing Goal: LB Dressing Goal Stand Alone Therapy Goal Outcome: Ongoing (Interventions Implemented as Appropriate) 07/12/16 1628 LB Dressing Goal LB Dressing Goal, Date Established 07/12/16 LB Dressing Goal, Time to Achieve 2 wks LB Dressing Goal, Activity Type Mod I sitting with AE LB Dressing Goal, Outcome goal ongoing Goal: Toileting Goal Stand Alone Therapy Goal Outcome: Ongoing (Interventions Implemented as Appropriate) 07/12/16 1628 Toileting Goal Toileting Goal, Date Established 07/12/16 Toileting Goal, Time to Achieve 2 wks Toileting Goal, Activity Type Mod I in bathroom with walker Toileting Goal, Outcome goal ongoing Plan of Care - Nkechi Urbano, PT - 07/12/2016 4:18 PM EST Problem: Patient Care Overview Goal: Plan of Care Review Outcome: Ongoing (Interventions Implemented as Appropriate) 07/12/16 1609 Plan of Care Review Progress progress toward functional goals as expected Coping/Psychosocial Plan Of Care Reviewed With patient Physical Therapy Assessment Pt seen for skilled PT Treatment Number: 1 Please see the Rehab Evaluation Summaries report for objective data and specifics of today???s session. Pt presents with B LE pain, decreased B LE A/PROM associated with edema, and decreased strength and endurance. These impairments currently limit pt's ability to perform functional tasks including bed mobility, transfers and ambulation. Pt required mod assist of two, progressing to min assist of two, in order to perform sit to stand transfers today; plan to progress to stand pivot transfers at next session. Pt will benefit from ongoing skilled physical therapy to address the above impairments and facilitate return to PLOF. Pertinent History of Current Problem: 56 y.o. male w/ a Hx of HMGCoA reductase Ab necrotizing myositis(2008) treated in the past with steroids, IVIG, MTX, MMF, RTX(2014), and currently on monthly IVIG and azathioprine 50mg QD(last CK 316), admitted with worsening bilateral ankle/knee pain w/ synovial fluid consistent with polyarticular gout. Staff Mobility Recommendations: Currently performs sit to stand transfers with rolling walker and min-mod assist of two from elevated bed. Has not performed stand pivot transfer yet. Precautions/Restrictions: fall, other (see comments) (skin breakdown risk) Anticipated Physical Therapy Frequency: 3-5 times/wk Anticipated Discharge Disposition: home with assist Pager: [phone] Nkechi Urbano, PT 07/12/2016 Inpatient Physical Therapy Problem: Acute Rehab Services Goal & Intervention Plan Goal: Bed Mobility Goal Stand Alone Therapy Goal Outcome: Ongoing (Interventions Implemented as Appropriate) 07/12/16 1609 Bed Mobility Goal Bed Mobility Goal, Date Established 07/12/16 Bed Mobility Goal, Time to Achieve 1 wk Bed Mobility Goal, Activity Type supine to sit/sit to supine Bed Mobility Goal, [place] Level independent Goal: Gait Training Goal Stand Alone Therapy Goal Outcome: Ongoing (Interventions Implemented as Appropriate) 07/12/16 1609 Gait Training Goal Gait Training Goal, Date Established 07/12/16 Gait Training Goal, Time to Achieve 1 wk Gait Training Goal, [place] Level conditional independence Gait Training Goal, Assist Device walker, rolling Gait Training Goal, Distance to Achieve 150ft Goal: Goal Transfer Training Stand Alone Therapy Goal Outcome: Ongoing (Interventions Implemented as Appropriate) 07/12/16 1609 Goal Transfer Training Transfer Training Goal, Date Established 07/12/16 Transfer Training Goal, Time to Achieve 1 wk Transfer Training Goal, Activity Type fjd-fl-wnumz/mnetc-fo-vam;whd-mj-rktgi/rtnry-rc-ssf Transfer Train Goal, [place] Level conditional independence Transfer Training Goal, Assist Device walker, rolling Plan of Care - Isabell Simmons RN - 07/12/2016 6:19 AM EST Problem: Patient Care Overview Goal: Plan of Care Review Outcome: Ongoing (Interventions Implemented as Appropriate) 07/11/16 1714 07/11/162034 Plan of Care Review Progress progress toward functional goals as expected -- Coping/Psychosocial Plan Of Care Reviewed With -- patient OUTCOME EVALUATION NOTE: OUTCOME SUMMARY: Vital signs for past 24 H Temp: [36.1 ??C (97 ??F)-36.5 ??C (97.7 ??F)] Heart Rate: [60-63] Resp: [16-18] BP: (118-139)/(60-71) SpO2: [98 %-99 %] Heart Rate from SPO2: [55 bpm-81 bpm] A&O x4, strengths 5/5 RUE and LUE. 2.5 RLE and 3/5 LLE, PERRL, VSS. Systems WNL. Noted pt has left facial droop like deficit that pt reported happened in 2008 when they thought I had a stroke but didn't find anything. Pt pain is lessened but not controlled on current pain regimen. Pt winces in pain at the slightest touch of his feet. Lower extremities are swollen. Pt to transfer to Room #271. Report given to Caden HARVEY. PLAN MOVING FORWARD: Continue to monitor patient progress with treatment. Monitor input/output Fluid restriction 1500mL INDIVIDUALIZED FALL PREVENTION INTERVENTIONS : Pt at RISK OF FALLS. Patient-specific fall risk factors per assessment: [current deficits]: Mobility : severely limited due to pain in lower extremities Diagnosis: TBD myopathy; GUY Restrictions: Carb control diet 60-60-75 with carb counting Problems: Diabetes, gout, HTN, Pain GUY Assistance [level of assistance required for transfers and ambulation]: Independent in bed with encouragement to shift positions Supervision [direct monitoring required during toileting and ADLs]: Monitoring during toileting and ADLs hands on Surveillance [continuous indirect monitoring]: Bed locked in low position, call howe within reach, Hourly rounding by RN/ASSOCIATE PROFESSOR OF KINESIOLOGY. Close to nurse's station. Bed alarm / Chair alarm. Patient-specific fall prevention interventions for sensory deficits provided, if applicable: [X] Yes CPG GOAL OUTCOME EVALUATION: Plan of Care - Deja Rivera RN - 07/11/2016 5:18 PM EST Problem: Patient Care Overview Goal: Plan of Care Review Outcome: Ongoing (Interventions Implemented as Appropriate) 07/11/16 1714 Plan of Care Review Progress progress toward functional goals as expected Coping/Psychosocial Plan Of Care Reviewed With patient OUTCOME EVALUATION NOTE: OUTCOME SUMMARY: Pt transferred from 507 to 516 this afternoon (report received from [facility]). Pt A&Ox4, PERRLA,AVSS, LS clear on RA, pain treated with Tylenol with +effect. Pt's BG levels remained elevated this shift, sliding scale adjusted. Pt transferred to the Medicine team. Bolus of 1 L NS given at 1700, and MIVF of NS running at 100 mL/hr, site CDI. Pedal pulses remain faint. Urine samples sent. Pt calm and cooperative with care, call light at bedside and pt rings appropriately. PLAN MOVING FORWARD: Continue to monitor pt's FS and treat according to sliding scale Work with PT/OT 2/? INDIVIDUALIZED FALL PREVENTION INTERVENTIONS: Patient-specific fall risk factors per assessment: Pt at risk to fall d/t extreme LE weakness; fall precautions maintained Assistance: Max-assist stand and pivot Supervision: Hands on Surveillance: Bed locked in low position, call howe within reach, purposeful hourly rounding, clutter free environment, bed/chair alarm on, family at bedside Patient-specific fall prevention interventions for sensory deficits provided: N/A CPG GOAL OUTCOME EVALUATION: Continue care plan as documented. Plan of Care - Ellen Hernandez RN - 07/11/2016 12:02 PM EST Problem: Patient Care Overview Goal: Plan of Care Review Outcome: Ongoing (Interventions Implemented as Appropriate) 07/10/16 1632 07/11/16 1109 Plan of Care Review Progress progress toward functional goals as expected -- Coping/Psychosocial Plan Of Care Reviewed With -- patient;spouse .OUTCOME EVALUATION NOTE: OUTCOME SUMMARY: Pt reports his leg pain 5/10 today which is improved from yesterday. RN had MD change activity order to OOB w/ assist so PT/OT can assess his mobility. Pt informed of this and is in agreement. Pt's anti-hypertensive home regimen changed as per AUG. Pt informed of these changes and has verbalized his agreement/understanding. Pt's diet changed to 60-60-75 as he's on prednisone and is DMII. PLAN MOVING FORWARD: PT/OT assessment Pt dorsi-plantar flex ankles to best of his ability as he's unable to tolerate SCDs to calves at this time. INDIVIDUALIZED FALL PREVENTION INTERVENTIONS: Patient-specific fall risk factors per assessment: Reduced mobility; LE bilat pain; prior falls Assistance: 2 assist, FWW Supervision: Hands on Surveillance: Bed locked in low position, call howe within reach, purposeful hourly rounding, clutter free environment, bed/chair alarm on, family at bedside Patient-specific fall prevention interventions for sensory deficits provided: N/A CPG GOAL OUTCOME EVALUATION: Continue care plan as documented. Goal: Individualization & Mutuality Outcome: Ongoing (Interventions Implemented as Appropriate) 07/10/16 0025 Mutuality/Individual Preferences What Anxieties, Fears or Concerns Do You Have About Your Health or Care? not being able to rebound from this What Questions Do You Have About Your Health or Care? none What Information Would Help Us Give You More Personalized Care? this started in 2009, on [place] and knee gave out. started treatments for muscles. Goal: Fall Prevention-Safe Patient Handling Outcome: Ongoing (Interventions Implemented as Appropriate) 07/10/16 16307/11/16 1109 Daily Care Interventions Self-Care Promotion -- independence encouraged;BADL personal objects within reach Activity and Safety Assistive Device Front wheel walker -- Peralta Fall Risk History of Falling -- 25 Secondary Diagnosis -- 15 Ambulatory Aids -- 15 Intravenous Therapy/Heparin/Saline Lock -- 20 Gait/Transferring -- 10 Mental Status -- 0 Score -- 85 OTHER Peralta Fall Risk -- High Restraint Interventions Safety Promotion/Fall Prevention -- safety round/check completed;nonskid shoes/slippers when out of bed;fall prevention program maintained;activity supervised Positioning Body Position -- supine;supine, legs elevated Goal: Infection Control Outcome: Ongoing (Interventions Implemented as Appropriate) 07/10/16199907/11/16 1109 Safety Interventions Isolation Precautions -- standard precautions maintained Infection Prevention rest/sleep promoted;single patient room provided -- Coping Strategies Supportive Measures active listening utilized -- Goal: Discharge Needs Assessment Outcome: Ongoing (Interventions Implemented as Appropriate) 07/10/16 1631 Discharge Needs Assessment Concerns To Be Addressed no discharge needs identified Readmission Within The Last 30 Days no previous admission in last 30 days Equipment Needed After Discharge walker, rolling Discharge Disposition home or self-care Current Health Anticipated Changes Related to Illness inability to care for self Activity/Self Care Review of Systems Equipment Currently Used at Home walker, rolling Living Environment Transportation Available car;family or friend will provide Goal: Interdisciplinary Rounds/Family Conf Outcome: Ongoing (Interventions Implemented as Appropriate) 07/11/16 1153 Interdisciplinary Rounds/Family Conf Participants family;occupational therapy;patient;manager of case management;physical therapy;physician Problem: Skin Integrity Impairment, Risk/Actual (Adult) Goal: Skin Integrity/Wound Healing Patient will demonstrate the desired outcomes by discharge/transition of care. Outcome: Ongoing (Interventions Implemented as Appropriate) 07/11/16 1153 Skin Integrity Impairment, Risk/Actual (Adult) Skin Integrity/Wound Healing making progress toward outcome Pt educated on importance of getting OOB with PT/OT. RN had MD change order to OOB as per tolerance so PT/OT can assess. Problem: Pain, Acute (Adult) Goal: Acceptable Pain Control/Comfort Level Patient will demonstrate the desired outcomes by discharge/transition of care. Outcome: Ongoing (Interventions Implemented as Appropriate) 07/11/16 1153 Pain, Acute (Adult) Acceptable Pain Control/Comfort Level making progress toward outcome Pt taking PRN dilaudid and tylenol for LE joint pain management. States today's pain level is 5/10 as opposed to 10/10 which he had yesterday. Plan of Care - Robles Donovan RN - 07/11/2016 5:26 AM EST Problem: Patient Care Overview Goal: Plan of Care Review 07/10/16 1632 07/10/161999 Plan of Care Review Progress progress toward functional goals as expected -- Coping/Psychosocial Plan Of Care Reviewed With -- patient OUTCOME EVALUATION NOTE: OUTCOME SUMMARY: Patient's pain is improved tonight. He is a little stronger in his right leg. PLAN MOVING FORWARD: Continue to monitor patient's pain INDIVIDUALIZED FALL PREVENTION INTERVENTIONS: Patient-specific fall risk factors per assessment: [current deficits]: Patient has significant pain and weakness in his lower extremities which places him at high risk for falling Assistance [level of assistance required for transfers and ambulation]: 2max Supervision [direct monitoring required during toileting and ADLs]: Hands on Surveillance [continuous indirect monitoring]: Purposeful rounding Patient-specific fall prevention interventions for sensory deficits provided, if applicable: [X] N/A CPG GOAL OUTCOME EVALUATION: Goal: Individualization & Mutuality 07/10/16 0025 Mutuality/Individual Preferences What Anxieties, Fears or Concerns Do You Have About Your Health or Care? not being able to rebound from this What Questions Do You Have About Your Health or Care? none What Information Would Help Us Give You More Personalized Care? this started in 2009, on trip to [place] and knee gave out. started treatments for muscles. Goal: Fall Prevention-Safe Patient Handling 07/10/16 1632 07/10/16199907/11/16 0000 Daily Care Interventions Self-Care Promotion -- BADL personal objects within reach -- Activity and Safety Assistive Device Front wheel walker -- -- Peralta Fall Risk History of Falling -- 25 -- Secondary Diagnosis -- 15 -- Ambulatory Aids -- 15 -- Intravenous Therapy/Heparin/Saline Lock -- 20 -- Gait/Transferring -- 10 -- Mental Status -- 0 -- Score -- 85 -- OTHER Peralta Fall Risk -- High -- Restraint Interventions Safety Promotion/Fall Prevention -- -- -- Positioning Body Position -- -- independent 07/11/16 0200 Daily Care Interventions Self-Care Promotion -- Activity and Safety Assistive Device -- [place] Fall Risk History of Falling -- Secondary Diagnosis -- Ambulatory Aids -- Intravenous Therapy/Heparin/Saline Lock -- Gait/Transferring -- Mental Status -- Score -- OTHER P[place] Fall Risk -- Restraint Interventions Safety Promotion/Fall Prevention fall prevention program maintained Positioning Body Position -- Goal: Infection Control 07/10/161999 Safety Interventions Isolation Precautions standard precautions maintained Infection Prevention rest/sleep promoted;single patient room provided Coping Strategies Supportive Measures active listening utilized Goal: Discharge Needs Assessment 07/10/16 163 Discharge Needs Assessment Concerns To Be Addressed no discharge needs identified Readmission Within The Last 30 Days no previous admission in last 30 days Equipment Needed After Discharge walker, rolling Discharge Disposition home or self-care Current Health Anticipated Changes Related to Illness inability to care for self Activity/Self Care Review of Systems Equipment Currently Used at Home walker, rolling Living Environment Transportation Available car;family or friend will provide Goal: Interdisciplinary Rounds/Family Conf 07/10/16 163 Interdisciplinary Rounds/Family Conf Participants family;nursing;patient;pharmacy;physician Problem: Skin Integrity Impairment, Risk/Actual (Adult) Intervention: Prevent/Manage Excess Moisture 07/10/161999 Skin Interventions Skin Protection tubing/devices free from skin contact Intervention: Prevent/Minimize Sheer/Friction Injuries 07/10/16199907/11/16 0000 Skin Interventions Pressure Reduction Devices pressure-redistributing mattress utilized -- Pressure Reduction Techniques frequent weight shift encouraged -- Positioning Positioning/Transfer Devices -- pillows Goal: Skin Integrity/Wound Healing Patient will demonstrate the desired outcomes by discharge/transition of care. 07/10/16 1631 Skin Integrity Impairment, Risk/Actual (Adult) Skin Integrity/Wound Healing making progress toward outcome Problem: Pain, Acute (Adult) Intervention: Monitor/Manage Analgesia 07/10/16 0840 Safety Interventions Medication Review/Management medications reviewed Intervention: Support/Optimize Psychosocial Response to Acute Pain 07/10/161999 Coping Strategies Supportive Measures active listening utilized Diversional Activities television Family/Support System Care involvement promoted Trust Relationship/Rapport care explained Goal: Acceptable Pain Control/Comfort Level Patient will demonstrate the desired outcomes by discharge/transition of care. 07/10/16 1629 Pain, Acute (Adult) Acceptable Pain Control/Comfort Level making progress toward outcome Plan of Care - Veronica Harris RN - 07/10/2016 4:38 PM EST Problem: Patient Care Overview Goal: Plan of Care Review Outcome: Ongoing (Interventions Implemented as Appropriate) 07/10/16 0840 07/10/16 1632 Plan of Care Review Progress -- progress toward functional goals as expected Coping/Psychosocial Plan Of Care Reviewed With patient -- OUTCOME EVALUATION NOTE: OUTCOME SUMMARY: Pt is alert and oriented x4, LE strengths 2/5. Lung sounds clear. Admin Tylenol and Dilaudid for reports of pain, see MAR. Xray bilat knee completed. Ortho and rheumatology consults completed. at bedside. PLAN MOVING FORWARD: Pain management INDIVIDUALIZED FALL PREVENTION INTERVENTIONS: Patient-specific fall risk factors per assessment: decreased strengths in lower extremities Assistance: Bedrest Supervision: Hands on Surveillance: Bed locked in low position, call howe within reach, purposeful hourly rounding, clutter free environment, bed/chair alarm on, family at bedside Patient-specific fall prevention interventions for sensory deficits provided: yes CPG GOAL OUTCOME EVALUATION: Continue care plan as documented. Consult Note - Akash Underwood MD - 07/10/2016 10:47 AM EST Orthopaedic Surgery Consult Note Attending: Dr. Boo Acevedo is a 56 y.o. male who presents to see us in consultation today at the request of Celso Casiano MD. Chief Complaint: Bilateral lower extremity pain x3-4 weeks. Consulted for rule out of compartment syndrome. History of Present Illness: Bucky Acevedo is a 56 y.o. male with history of DMII, HTN, HLD, gout,and autoimmune statin necrotizing myopathy (dx 2010) receiving gammaguard infusions twice weekly andIV solumedrol q4 weeks. He reports attacks of myositis every 3-4 weeks that manifest with upper or lower extremity weakness and pain that typically resolve in one week. 3-4 weeks ago he developed pain in his bilateral ankles that he thought was the beginning of another typical attack. 1-2 weeks later he developed bilateral knee pain and then diffuse pain in his lower legs (from knees to toes). He previously ambulated without assistive devices but since Saturday has been unable to walk at all due to pain and weakness. He presented to the ED yesterday for via EMS for this prolonged pain and weakness. He denies bowel or bladder incontinence but does endorse black stools, which we attributes to takingiron supplements. He is scheduled for endoscopy soon with GI. He denies subjective fevers but did have chills yesterday. Tmax last night was 38.4. He denies history of trauma to either lower extremity.Does have history of blood clots, one in the RUE and one in his port - both treated with warfarin. He denies currently taking any anticoagulants. The pain he is experiencing now is different from past flares with respect to duration, intensity, and affecting the entire lower legs bilaterally. Past Medical History: Patient Active Problem List Diagnosis Code ??? Myopathy G72.9 ??? Nausea and vomiting R11.2 ??? Diabetes mellitus, type II E11.9 ??? Hepatosplenomegaly R16.2 ??? Durand's esophagus K22.70 ??? Nonalcoholic steatohepatitis (HORTON) K75.81 ??? Anemia D64.9 ??? Skin rash R21 ??? Imbalance R26.89 ??? Myositis M60.9 Past Surgical History: Past Surgical History Procedure Laterality Date ??? Umbilical hernia repair 1980s ??? Ureter stent placement renal stent ??? Tunneled venous port placement Jun 2012 ??? Tunneled venous port placement ??? Pro bone marrow aspiration w/bx through same incision/site 05/28/2013 ([facility]) BONE MARROW ASP PERFORMED W/BX THRU BX INCISION performed by Alem Evangelista MD at [facility] ??? Pro bone marrow bx, needle/trocar 05/28/2013 ([facility]) BONE MARROW,BIOPSY performed by Alem Evangelista MD at [facility] ??? Muscle biopsy 2008 ??? Lithotripsy ??? Tunneled venous port placement 2011 ??? Pro colonoscopy, diagnostic 07/21/2013 COLONOSCOPY, DIAGNOSTIC performed by Royer Temple MD at [facility] ??? Pro endoscopic us exam, esoph 07/21/2013 UPPER EUS- ENDOSCOPIC ULTRASOUND performed by Royer Temple MD at [facility] ??? Pro upper gi endoscopy, biopsy 07/21/2013 UPPER GASTROINTESTINAL ENDOSCOPY,WITH BIOPSY SINGLE OR MULTIPLE performed by Royer Temple MD at [facility] ??? Pro upper gi endoscopy, diagnostic N/A 08/30/2015 EGD, UPPER GI ENDOSCOPY performed by Anastasia Mccauley MD at [facility] ??? Pro bone marrow aspiration w/bx through same incision/site Right 04/10/2016 ([facility]) BONE MARROW ASP PERFORMED W/BX THRU BX INCISION performed by Jayden Ignacio MD at [facility] ??? Pro bone marrow bx, needle/trocar Right 04/10/2016 ([facility]) BONE MARROW,BIOPSY performed by Jayden Ignacio MD at [facility] Allergies Allergen Reactions ??? Methotrexate Hives, Itching and Rash ??? Morphine Itching ??? Wjeedua-Chy-Kxs Reductase Inhibitors Myopathy No current facility-administered medications on file prior to encounter. Current Outpatient Prescriptions on File Prior to Encounter Medication Sig Dispense Refill ??? ferrous gluconate (FERGON) 240 mg (27 mg iron) Tablet Take 240 mg by mouth 3 times daily (with meals). ??? BD INSULIN PEN NEEDLE UF SHORT 31 gauge x 5/16 Needle USE 5 DAILY WITH LANTUS AND HUMALOG. 4 ??? glipiZIDE (GLUCOTROL XL) 10 mg Tablet Extended Rel 24 hr TAKE ONE TABLET BY MOUTH EVERY DAY 3 ??? LANTUS SOLOSTAR Insulin Pen INJECT 25 UNITS SUBCUTANEOUSLY EVERY MORNING AND 80 UNITS IN THE EVENING DOSE INCREASE 5 ??? HUMALOG KWIKPEN Insulin Pen INJECT UNDER THE SKIN DIRECTED BEFORE MEALS MAXIMUM OF 40 UNITS TOTAL PER DAY 3 ??? ferrous sulfate 324 mg (65 mg iron) Tablet, Delayed Release (E.C.) Take 324 mg by mouth every other day. ??? terazosin (HYTRIN) 5 mg Capsule Take 5 mg by mouth nightly. ??? indomethacin (INDOCIN) 50 mg Capsule Take [...] tablet Take 2 tablets by mouth daily. Family History: Negative for bleeding/clotting disorders or anesthetic complications. Social History: Tobacco: Denies EtOH: Denies Illicits: Denies Employment: No longer working. 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 Living Situation: Lives with in [place]. Review of Systems: As per HPI, otherwise negative Objective: Temp: [36.8 ??C (98.2 ??F)-38.4 ??C (101.1 ??F)] Heart Rate: [68-98] Resp: [11-29] BP: (126-163)/(49-82) SpO2: [95 %-100 %] Heart Rate from SPO2: [71 bpm-96 bpm] Gen: Pleasant, obese man in NAD, sitting upright in bed, AOx3, answering questions appropriately. HEENT: NC, AT CV: Regular rate and rhythm. Pulm: Normal respiratory effort on room air. Skin: Intact Psych: Normal mood and affect Bilateral Upper Extremity Exam: No TTP clavicle, shoulder, humerus, elbow, forearm, wrist, hand Painless range of motion of shoulder / elbow / wrist / fingers No ecchymosis, erythema, or overlying skin changes. Sensation intact to light touch in Ax/M/R/U/LABC distributions Motor intact (5/5) shoulder abduction, elbow flexion/extension, wrist flexion/extension, digital retoucher, EPL, AIN, IO Brisk capillary refill distally 2+ radial pulse Right Lower Extremity Exam: No TTP pelvis, hip, femur. Tenderness to palpation of knee, tib/fib, ankle, foot. Painless range of motion of hip. Pain in calf with range of motion of knee / ankle / extension of great toe. Lower leg diffusely swollen. Erythema overlying 1st MTP and medial malleolus. Sensation intact to light touch in Saphenous/Sural/LFC/Femoral/MP/LP/T/DP/SP distributions. Motor intact (2/5) hip flexion/extension, (3/5) knee flexion/extension, ankle flexion/extension, EHL/FHL/TA. Compartments soft and compressible. Brisk capillary refill distally. DP/PT pulses not palpable, but positive signal on doppler. Left Lower Extremity Exam: No TTP pelvis, hip, femur. Tenderness to palpation of knee, tib/fib, ankle, foot. Painless range of motion of hip. Pain in calf with range of motion of knee / ankle / extension of great toe. Lower leg diffusely swollen. Erythema overlying 1st MTP and medial malleolus. Sensation intact to light touch in Saphenous/Sural/LFC/Femoral/MP/LP/T/DP/SP distributions. Motor intact (4/5) hip flexion/extension, (3/5) knee flexion/extension, ankle flexion/extension, EHL/FHL/TA. Compartments soft and compressible. Brisk capillary refill distally. DP/PT pulses not palpable, but positive signal on doppler. Labs: Last 3 wbc, hgb, hct plt Recent Labs 07/10/16 1000 07/10/16 0040 07/09/16 1751 WBC 9.5 10.8* 6.5 HGB 7.7* 8.4* 9.8* HCT 22.9* 25.7* 29.6* PLATELET 117* 114* 147 Last 3 Lytes Recent Labs 07/10/16 0040 07/09/16 1751 03/16/16 1252 NA 136 137 144 K 4.4 4.0 4.6 CL 99 97* 105 CO2 19* Not Perf 18* BUN 53* 57* 33* CREATININE 1.98* 2.14* 1.48 Last 3 LFTs Recent Labs 07/10/16 1000 07/09/16 1751 03/16/16 1252 AST 25 30 27 ALT 18 21 24 ALKPHOS 101 103 108 BILITOT 0.5 0.5 0.5 BILIDIR 0.2 0.2 0.1 Last Ca, Mg, Phos Recent Labs 07/10/16 1000 07/10/16 0040 CALCIUM -- 8.7 PHOS 3.7 -- Last 3 Coags Last 3 ProBNP, Trop, CK Recent Labs 07/10/16 1000 07/09/16 1751 CK 242* 405* Last 3 HgbA1C Recent Labs 03/06/16 1146 HA1C 6.3* Last CRP, SEDRATE Recent Labs 07/09/16 1751 CRP >300.0* SEDRATE 27* Imaging: Bilateral knee xrays pending. Assessment/Plan: 56 y.o. male with hx of statin induced autoimmune necrotizing myositis admitted from ED for 3-4 week period of worsening pain and weakness in the bilateral lower extremities. Orthopaedics was consulted for rule out of compartment syndrome. Patient complains of BLE pain from knee to toes, R>L. On clinical exam the patient does exhibit significant calf pain with passive stretch of the great toe bilaterally, but improves with continued motion. He is diffusely tender to palpation in the lower legs and exhibits weakness, likely limited due to pain. Although he has profound weakness with R hip flexion and little pain when doing so. His clinical exam taken with his history yields low suspicion for compartment syndrome. In the eventthat he did have a true compartment syndrome, fasciotomies would not be indicated given the prolonged amount of time that his symptoms have been present for (5-7 days). There is also low suspicion for septic arthritis given that several joints are affected bilaterally (knees, ankles, 1st MTPs). He is likely experiencing an inflammatory arthritis or some other immune related process. Recommend rheumatology consult for further workup. I have contacted the referring team and discussed our evaluation and recommendations as listed above. The orthopaedic service will continue to follow this patient. Thank you for the opportunity to assist in their evaluation and treatment. Please call Ortho resident composition board press operator with any questions or concerns. ?? Akash Underwood MD, MS Orthopaedic Surgery #[id number] Associated attestation - Jeanmarie Haddad MD - 07/25/2016 5:48 PM EST ATTENDING NOTE: Bucky Acevedo was seen in consultation at the request of the Medicine team here at [facility]. As described in the full consultation note above, the reason for the consultationwas concern for compartment syndrome. I have reviewed the imaging and findings for Bucky Acevedo and I agree with the impression and plan in the full consultation note above. Consult Note - Vineet Moore MD - 07/10/2016 9:56 AM EST Inpatient Hospital Medicine - Initial Consultation Date of Consultation: 07/10/2016 Reason for Consult: We are seeing Bucky Acevedo at the request of Celso Casiano MD of the Neurology service for the evaluation of GUY and fever. I have reviewed the available records, interviewed, and examined the patient. Active Problem List: # Myositis # GUY # DM2 # Fever HPI: Bucky Acevedo is a 56 y.o. male w/ PMH notable for HTN, HLD, DM2, HORTON, GERD, anemia, gout and necrotizing statin myopathy who was admitted with lower extremity weakness and pain. Initially diagnosed with statin myopathy in 2009 after presenting with progressive muscle weakness and a CK in the 5000s. Had been on atorvastatin for 9 years, reportedly at 100 mg. Biopsy at that timeshowed necrotizing myopathy. Paraneoplastic work-up was negative. He was treated with IVIG and prednisone. He recovered from a bed bound to state to ambulation without assistive device. For a while, he would get worse whenever they tried weaning his immunosuppression/IVIG. CK spiked again in 5830-8020 and he had worsening weakness. He had to start using a walker/wheelchair in 2014. They went back up on his IVIG dose and he got better with CK has since trended down. For about 2 months he has had intermittent pains in his right leg. He has been following up with and at last visit in May, was still getting IVIG every 2 weeks and IV solumedrol. His strength was 4+/5 UE and 5/5 LE and was walking with a walker. He was doing house-work and mowing the lawn. Insurance denied request for cellcept and immuran. He was then started on azathioprine in June. He had URI symptoms (nasal congestion and cough) that he transmitted to his as well. In the last day he also had 3 loose bowel movements. LE weakness (initially right side but then left as well) and pain started about 2 weeks ago then progressed prompting him to come into the ED. Tearing pain started above the right knee and goes to the toes, on the front side of the leg. It is constant. On 07/06 it started on the other leg. Pain gets worse with usage of muscles. This pain is worse than previous episodes of myositis. It started off similar but felt more like a heaviness. Denies dysuria. Urine has been darker. No hematuria. No changes in urine volume. Had some back pain today, consistent with chronic back pain he has had in the past. Usually exacerbated by activity. Review of Systems (positives bold) Constitutional: see HPI HENT: visual changes, hearing loss, vertigo, trouble swallowing Respiratory: cough, shortness of breath, snoring, nocturnal hypopneic/apneic episodes. Cardiovascular: chest pain, palpitations, paroxysmal nocturnal dyspnea, dyspnea on exertion, orthopnea, leg swelling Gastrointestinal: abdominal pain, nausea, vomitting, diarrhea, constipation, blood in stool, dark stool on iron, stool changes Genitourinary: dysuria, urgency/frequency, hesitancy/dribbling/weak stream Skin: rash, skin changes M/S: see HPI Neurological: see HPI Hematological: adenopathy, easy bruising. Past Medical History Past Medical History Diagnosis Date ??? Cirrhosis ??? Diabetes ??? DM II (diabetes mellitus, type II), controlled ??? Gout ??? Hyperlipidemia ??? Hypertension ??? Kidney stone ??? 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 Obesity ??? Shingles 2010 No current facility-administered medications on file prior to encounter. Current Outpatient Prescriptions on File Prior to Encounter Medication Sig Dispense Refill ??? ferrous gluconate (FERGON) 240 mg (27 mg iron) Tablet Take 240 mg by mouth 3 times daily (with meals). ??? BD INSULIN PEN NEEDLE UF SHORT 31 gauge x 5/16 Needle USE 5 DAILY WITH LANTUS AND HUMALOG. 4 ??? glipiZIDE (GLUCOTROL XL) 10 mg Tablet Extended Rel 24 hr TAKE ONE TABLET BY MOUTH EVERY DAY 3 ??? LANTUS SOLOSTAR Insulin Pen INJECT 25 UNITS SUBCUTANEOUSLY EVERY MORNING AND 80 UNITS IN THE EVENING DOSE INCREASE 5 ??? HUMALOG KWIKPEN Insulin Pen INJECT UNDER THE SKIN DIRECTED BEFORE MEALS MAXIMUM OF 40 UNITS TOTAL PER DAY 3 ??? ferrous sulfate 324 mg (65 mg iron) Tablet, Delayed Release (E.C.) Take 324 mg by mouth every other day. ??? terazosin (HYTRIN) 5 mg Capsule Take 5 mg by mouth nightly. ??? indomethacin (INDOCIN) 50 mg Capsule Take [...] tablet Take 2 tablets by mouth daily. Inpatient Meds: Scheduled Meds: ??? polyethylene glycol (MIRALAX)oral powder 17 g Oral Daily ??? magnesium sulfate 2 g Intravenous Once ??? atenolol 50 mg Oral Daily ??? terazosin 5 mg Oral Nightly ??? sodium chloride 0.9 % 5 mL Intravenous BID ??? enoxaparin 40 mg Subcutaneous Nightly ??? insulin lispro 2-8 Units Subcutaneous Q4H MAGALI ??? insulin glargine 40 Units Subcutaneous Nightly ??? pantoprazole 40 mg Intravenous Daily Continuous Infusions: PRN Meds:.HYDROmorphone, sodium chloride 0.9 %, lidocaine, senna-docusate, ondansetron OR ondansetron, dextrose 50% OR glucagon (human recombinant), acetaminophen Allergies: Allergies Allergen Reactions ??? Methotrexate Hives, Itching and Rash ??? Morphine Itching ??? Dctmxsm-Ycz-Ewk Reductase Inhibitors Myopathy Family History: Mother: colon cancer No history of muscle problems or weakness Social History: Tobacco: None EtOH: None Illicits: None Vitals: Last value Range last 24 hrs Temperature Temp: 37.6 ??C (99.7 ??F) Temp: [36.8 ??C (98.2 ??F)-38.4 ??C (101.1 ??F)] Heart Rate Heart Rate: 93 Heart Rate: [68-98] Blood Pressure BP: 147/61 BP: (126-163)/(49-82) Respiratory Rate Resp: 20 Resp: [11-29] SpO2 SpO2: 95 % SpO2: [95 %-100 %] I's and O's: Intake/Output Summary (Last 24 hours) at 07/10/16 0957 Last data filed at 07/10/16 0800 Gross per 24 hour Intake 3640 ml Output 750 ml Net 2890 ml Weights: Patient Vitals for the past 168 hrs: Weight 07/09/16 1516 (!) 122.5 kg (270 lb) PHYSICAL EXAM: Gen: ANOx3, NAD, WD/WN Eyes: EOMI, anicteric ENT: MMM, no lesions CV: RRR, Normal S1/S2, systolic murmur 3/6 Respiratory: Good Aeration, CTAB, -w/r/r GI: Soft, NT/ ND, + BS, -HSM Skin: Warm and Dry, no lesions Neuro: no pronator drift, 3/5 strength in LEs (partially limited by pain) Musculoskeletal: Swelling around knees and ankles, markedly tender. No redness. Ext: No tenderness over calf. No tenderness over kim. No tightness. Labs: Recent Labs 07/10/16 0040 07/09/16 1751 WBC 10.8* 6.5 HGB 8.4* 9.8* HCT 25.7* 29.6* PLATELET 114* 147 No results for input(s): INR in the last 168 hours. Recent Labs 07/10/16 0040 07/09/16 1751 NA 136 137 K 4.4 4.0 CL 99 97* CO2 19* Not Perf BUN 53* 57* CREATININE 1.98* 2.14* Recent Labs 07/09/16 1751 AST 30 ALT 21 ALKPHOS 103 BILITOT 0.5 BILIDIR 0.2 Recent Labs 07/10/16 0040 07/09/16 1751 CALCIUM 8.7 9.4 MAGNESIUM 0.78 -- Recent Labs 07/09/16 1751 CK 405* Recent Labs 07/09/16 1751 TSH 1.11 Recent Labs 03/06/16 1146 HA1C 6.3* Lab Results Component Value Date CHLPL 208 (H) 03/06/2016 HDL 27 (L) 03/06/2016 CHOLHDL 7.7 03/06/2016 TRIG 346 (H) 03/06/2016 LDLCHOL 112 (H) 03/06/2016 UA: Component Value Date/Time SPGRAVITYUA 1.017 07/09/2016 2225 PHUADIP 5.0 07/09/2016 2225 PROTEINUADIP Negative 07/09/2016 2225 GLUCOSEU Negative 07/09/2016 2225 KETONESUA Negative 07/09/2016 2225 UROBILIUADIP Normal 07/09/2016 2225 BLOODUADIP Negative 07/09/2016 2225 NITRATEUA Negative 07/09/2016 2225 LEUKOESTERUA Large (A) 07/09/2016 2225 WBCUA 41 (H) 07/09/2016 2225 BILIRUBINUA Negative 07/09/2016 2225 Micro: Urine cx 07/09: pending Blood cx 07/09: pending Imaging/Other studies: CXR 07/09: pending Assessment: Bucky Acevedo is a 56 y.o. male w/ PMH notable for HTN, HLD, DM2, and necrotizing statin myopathywho was admitted with lower extremity weakness but also found to have fever and GUY. GUY likely due to dehydration from viral infection plus lisinopril/HCTZ exacerbated by myoglobinuria. Fluid should help improve the GUY, but if it does not we will need further testing. We should check a uric acid as well, it may be exacerbating the GUY. It may also explain his joint pain, though it is interesting that it is affecting multiple joints and is symmetrical. Recommendations: # GUY - Probably has some baseline CKD from HTN and DM2 - In setting of dehydration plus lisinopril/HCTZ plus renal toxicity of persistent myositis - Atenolol might be blunting tachycardic response - Agree with holding lisinopril/HCTZ - Agree with fluid administration. Continue bolusing daily and trending creatinine. - Has adequate urine output currently - Check uric acid - If creatinine does not come down, may need to get retroperitoneal US # Fever - Could be secondary to a viral syndrome. - Could also be secondary to myopathy, if it is recurring - No clear source of bacterial infection. - UA showing pyuria. Culture pending - Agree with ortho in their suspicion for a rheumatologic process, with more of a joint process thana muscular process. Recommend rheumatology consultation. # Anemia - Maybe some dilutional component now - If continuing to downtrend, consider GI involvement: (Durand's on last EGD 2015, hemorrhoids and polyp on colo 2013) Case was discussed with Dr. Meyer who agrees with recommendations as documented above. Recommendations relayed to primary steam gigger. X Consult service will continue to follow patient. Recommendations are above, please page if further consultation required. VINEET MOORE MD 07/10/2016 Consult pager #[phone] Associated attestation - Brian Meyer MD - 07/11/2016 4:25 PM EST Attending Staff New Consult Documentation We have been asked to see this patient in consultation by Dr. casiano from neruology Please see Dr. Moore'snote for details of the patient history of presentation and data. I have discussed, reviewed and agree with the documented history with ROS, social and family history, medication list, physical findings, labs/studies, Assessment and Plan of care. I have examined the patient myself and reviewed all labs and studies personally. Consult Note - Deric Morales MD - 07/10/2016 9:50 AM EST Rheumatology Inpatient Consult Note Reason for Consult: Bucky Acevedo is a 56 y.o. male who we are seeing today at the request of Celso Casiano MD for evaluation of polyarthritis. HPI: Mr. Acevedo is a 56 yo M with a h/o HMGCoA reductase Ab necrotizing myositis dx in [address] Prieto and treated in the past with steroids, IVIG, MTX, MMF, RTX (last given in 2014) currently on montly IVIG and azathioprine 50mg QD and last CK in clinic 316 as well as HORTON, and DM2 admitted to [facility] 07/09/16 for LE pain/weakness. The patient was in his USOH until last week when he had symptoms of a URI - rhinorrhea, sore throat,and subjective fevers/chills. This was managed conservatively (no abx), but then on he started noticing bilateral R>L knee pain that progressed to bilateral ankle pain. The is sharp, worse with movement but present at rest, and so severe that he can't walk. He even had a couple episodes ofdiarrhea that he was unable to get up for because of pain. He tells me that he thinks the weakness is not related to his muscles and more related to the joints. He even says that these symptoms are different from those that let to the dx of autoimmune myositis, which were insidious while these were very abrupt. ROS (positive in bold): General fevers, chills HEENT see HPI Card chest pain, palpitations Pulm SOB, cough, CALDERON GI abd pain, nausea, vomiting, diarrhea dysuria, hematuria MS: arthritis, arthralgia, muscle aches Neuro [place] Skin rash Psych difficulty sleeping PMHx: Past Medical History Diagnosis Date ??? Cirrhosis ??? Diabetes ??? DM II (diabetes mellitus, type II), controlled ??? Gout ??? Hyperlipidemia ??? Hypertension ??? Kidney stone ??? 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 Obesity ??? Shingles 2010 SurgHx: Past Surgical History Procedure Laterality Date ??? Umbilical hernia repair ??? Ureter stent placement renal stent ??? Tunneled venous port placement Jun 2012 ??? Tunneled venous port placement ??? Pro bone marrow aspiration w/bx through same incision/site 05/28/2013 ([facility]) BONE MARROW ASP PERFORMED W/BX THRU BX INCISION performed by Alem Evangelista MD at [facility] ??? Pro bone marrow bx, needle/trocar 05/28/2013 ([facility]) BONE MARROW,BIOPSY performed by Alem Evangelista MD at [facility] ??? Muscle biopsy 2008 ??? Lithotripsy ??? Tunneled venous port placement 2011 ??? Pro colonoscopy, diagnostic 07/21/2013 COLONOSCOPY, DIAGNOSTIC performed by Royer Temple MD at [facility] ??? Pro endoscopic us exam, esoph 07/21/2013 UPPER EUS- ENDOSCOPIC ULTRASOUND performed by Royer Temple MD at [facility] ??? Pro upper gi endoscopy, biopsy 07/21/2013 UPPER GASTROINTESTINAL ENDOSCOPY,WITH BIOPSY SINGLE OR MULTIPLE performed by Royer Temple MD at [facility] ??? Pro upper gi endoscopy, diagnostic N/A 08/30/2015 EGD, UPPER GI ENDOSCOPY performed by Anastasia Mccauley MD at [facility] ??? Pro bone marrow aspiration w/bx through same incision/site Right 04/10/2016 ([facility]) BONE MARROW ASP PERFORMED W/BX THRU BX INCISION performed by Jayden Ignacio MD at [facility] ??? Pro bone marrow bx, needle/trocar Right 04/10/2016 ([facility]) BONE MARROW,BIOPSY performed by Jayden Ignacio MD at [facility] FamHx: Family History Problem Relation Age of Onset ??? Colorectal Cancer Mother 59 ??? Diabetes Mother ??? Obesity Mother ??? Myocardial Infarction Father first [place] at 36 ??? Coronary Artery Disease Father ??? Hypertension Father ??? Hyperlipidemia Father ??? Stomach Cancer Other uncle ??? Type 2 Diabetes Paternal Uncle ??? Obesity Sister ??? Type 2 Diabetes Sister ??? Cirrhosis Paternal Aunt Alcohol Abuse SocHx: Social History Substance Use Topics ??? Smoking status: Never Smoker ??? Smokeless tobacco: Never Used ??? Alcohol use No Pertinent Inpatient Med List: Azathioprine 50mg QD Vitals: Last value 24hr range T 37.6 ??C (99.7 ??F) Temp: [36.8 ??C (98.2 ??F)-38.4 ??C (101.1 ??F)] HR 93 Heart Rate: [68-98] BP 147/61 BP: (126-163)/(49-82) RR 20 Resp: [11-29] SpO2 95 % SpO2: [95 %-100 %] Physical Exam: General: Tired appearing male, NAD HEENT: No ear tophi Neck: Supple Cardiovascular: 2+ radial and pedal pulses Abdomen: Soft, nontender, nondistended Neuro: Alert and oriented x3. Skin: no rashes or lesions noted Extremities: Elbows:FROM, no synovitis, no tophi Wrists: FROM, no swelling, non-tender Hands: No synovitis, no MCP compression tenderness, full claw and fist Knees: Unable to flex actively or passively 2/2 pain, large bilateral effusions with overlying warmth Ankles: Unable to dorsi or plantar flex 2/2 pain, effusions bilaterally with warmth Feet: bilateral 1st MTP redness, swelling, and TTP with inability to move great toes 2/2 pain Labs: Reviewed and notable for the following: WBC 9.5, Hgb 7.7, Plt 117 Cr 1.98 CK 405-->242 CRP > 300 ESR 27 Body Fluid Labs: Negative gram stain Cell count 17K, 96% PMNs Studies: Knee x-rays showed bilateral effusions and OA Procedure: Informed consent was obtained after a discussion of the nature of the procedure, its risks, benefitsand possible alternatives. Immediately prior to the start of the procedure a time out was taken: - The patient's identity was confirmed using two identifiers - The intended procedure, patient positioning and availability of all required equipment was also confirmed. The right knee was prepped in sterile fashion. Ethyl chloride and 2.5 ml 1% lidocaine was used as local anaesthetic. The joint was entered and 60cc of cloudy synovial fluid was aspirated. The patient tolerated the procedure well with no immediate complications. Patient was advised to rest the joint for 5 days and watch for signs of infection including fever. Dr. Spike Dooley, PGY-2, performed this procedure under my direct supervision. Our polarized light microscopy exam was c/w many intra- and extra-cellular MSU crystals. Assessment: 56 yo M with a h/o HMGCoA reductase Ab necrotizing myositis dx in [address] Prieto and treated in the past with steroids, IVIG, MTX, MMF, RTX (last given in 2014) currently on montly IVIG and azathioprine 50mg QD and last CK in clinic 316 as well as HORTON, and DM2 admitted to [facility] 07/09/16 for LE pain/weakness. Clinically this is most c/w polyarticular gout. His almost normal CK makes a flare of his autoimmune myopathy highly unlikely, and I do not think there is another autoimmune explanation for his symptoms. Recommendations: # Polyarticular gout -Prednisone 40mg PO QD (please keep a close eye on his blood sugars) -Uric acid -Once GUY and acute flare resolves, we would recommend he f/u with Dr. Prieto to discuss starting allopurinol and a medication for gout flare ppx, but this can be done in outpatient clinic. Recs communicated to primary team. Discussed with Dr. Morales. Yony Jon MD Rheumatology Fellow, PGY-4 ADDENDUM: I have seen the patient and reviewed Dr. Jon's above history and I agree with the details as written. The assessment and plan were formulated in discussion with me and I agree with them as documented. Mr. Acevedo has bilateral leg pain, along with swelling and marked tenderness of both knees, both ankles, and the right first MTP. We aspirated the knee joint and identified numerous intracellular uricacid crystals, consistent with an acute gout flare. Our conclusion is that this represents polyarticular gout. Given the renal insufficiency and recent diarrhea we would avoid NSAIDs or colchicine. Instead we would recommend prednisone 40mg daily. Please treat with 40mg for one week, then 20mg daily until his joint pain has completely resolved, followed by 10mg daily for an additional 5 days. He will need allopurinol eventually, but we would defer that to his primary brim edge trimmer, Dr. Prieto, as an outpatient. Initial Assessments - Luiz Pierre MSW - 07/10/2016 8:11 AM EST Office of Care Management Initial Assessment HIMANSHU Clark reviewed record and discussed patient with Care Team. Source of Information: Patient, Chart, Introduced self/reviewed role; services accepted. Reason for Hospitalization: statin myopathy Past Medical History Diagnosis Date ??? Cirrhosis ??? Diabetes ??? DM II (diabetes mellitus, type II), controlled ??? Gout ??? Hyperlipidemia ??? Hypertension ??? Kidney stone ??? 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 Obesity ??? Shingles 2010 Hospitalizations Within the Past 30 Days: no Anticipated Length Of Stay (If known): 3 days Current Decision-Making Capacity: fine Advance Care Planning: no would name my Current Coping/Education/Information Needs: none Current Functional Ability: poor Functional Status Prior to Admission: poor; has flared up Home Environment: single level with ramp to enter Social & Family Supports/Community Resources: , four sons, friends Behavioral Health History: denies- speaks of frustration Substance Use/Abuse: denies Other Pertinent/Service Specific Information: none Health/Prescription Coverage: Primary Insurance: MEDICARE PART A & B Secondary Insurance: None Prescription Coverage: yes part D Preferred Pharmacy: [id number] - [place], [place] - [address] [facility] Other: none Primary Care Provider: Jazmine Baer MD [phone] Patient/Caregiver Goals of Treatment: get happy and go home Potential Needs for Transition of Care: Rehab/SNF: potential Home Health: has had [facility] and had issues DME: has walker, cane, and scooter Dialysis: tbd- does IV/IG at an infusion suite every two weeks Community Resources: NA Transportation:yes Other: none Anticipated Barriers to Discharge/Special Considerations: possible compartment syndrome Plan: TBD after rule out of compartment syndrome A member of the Care Management team will continue to monitor progress, follow for continuity of care and assist with transition of care planning. HIMANSHU Clark Pager: [phone] Plan of Care - Robles Donovan RN - 07/10/2016 6:35 AM EST Problem: Patient Care Overview Goal: Plan of Care Review OUTCOME EVALUATION NOTE: OUTCOME SUMMARY: Patient admitted from the ED. He has significant pain and weakness in his lower extremities. Dr. Rivera called regarding. Pain medication increased. Patient drinking a lot of water tonight. (over 2 liters here on the floor) He had a 2 liter iv bolus in the Ed. Per patient request 4 side rails are up and utilized during repositioning. PLAN MOVING FORWARD: Continue to encourage patient with repositioning. Continue close monitoring of I&O. INDIVIDUALIZED FALL PREVENTION INTERVENTIONS: Patient-specific fall risk factors per assessment: [current deficits]: Patient has bilateral lower extremity weakness which places him at high risk for falling Assistance [level of assistance required for transfers and ambulation]: 2-3 max assist, if not more Supervision [direct monitoring required during toileting and ADLs]: Hands on Surveillance [continuous indirect monitoring]: Purposeful rounding Patient-specific fall prevention interventions for sensory deficits provided, if applicable: [X] N/A CPG GOAL OUTCOME EVALUATION: Goal: Individualization & Mutuality 07/10/16 0025 Mutuality/Individual Preferences What Anxieties, Fears or Concerns Do You Have About Your Health or Care? not being able to rebound from this What Questions Do You Have About Your Health or Care? none What Information Would Help Us Give You More Personalized Care? this started in 2009, on trip to [place] and knee gave out. started treatments for muscles. Goal: Fall Prevention-Safe Patient Handling 07/09/16 1518 [place] Fall Risk History of Falling 25 Secondary Diagnosis 0 Ambulatory Aids 15 Intravenous Therapy/Heparin/Saline Lock 0 Gait/Transferring 10 Mental Status 0 Score 50 OTHER [place] Fall Risk High Goal: Discharge Needs Assessment 07/10/16 0025 Living Environment Transportation Available family or friend will provide ED Triage - Benedict Alvarez NRP - 07/09/2016 3:19 PM EST Patient arrived via EMS with increased weakness in lower extremities for about a week. He states that he has myopathy in his lower extremities, but this is the worst weakness he has had. Lower extremity movement decreased bilaterally, pulses and sensations intact bilaterally. CHAVIRA x 4. No arm drift, nofacial droop. Notes no swelling of lower extremities. Consult Note - Derrell Malone MD - 07/09/2016 3:19 PM EST Neurology Note - 07/09/2016 Patient name: Bucky Acevedo Date of : 1960 PCP: Jazmine Baer MD CC: Progressive LE weakness HPI: Bucky Acevedo is a 56 y.o. 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 He also has a PMH of HTN, HLD, T2DM, GERD, Gout. Early this month, he was at his functional baseline, able to ambulate around his house without usinga walker. He had Right leg weakness about 1 week ago. At that time, he was still able to get around house withwalker. On , the weakness spread to the left leg as well, and he was unable to walk without being able to stand. Does have pain across both knees. Feels the pain is similar to when statin myopathy was diagnosed. He does note that the statin myopathy also caused weakness of his arms, which he has not had during this illness. He notes that he has had a viral illness, started a week and a half ago, with a runny nose. He has had a dry cough since then. Coricidin helped the illness somewhat. He lives with his , who had a similar illness. Has also been having increasing episodes of black, runny stools. These started for the past three weeks, increasing and decreasing in quantity. Follows with Dr. Headley of GI for iron-deficiency anemia, HORTON cirrhosis, Durand esophagus. Scheduled for EGD on 08/02/16. Has had occasional issues with incontinence. For his statin myopathy, his most recent IVIG was on 06/21/16. He routinely gets these at [facility]. Past Medical & Surgical History: Past Medical History Diagnosis Date ??? Cirrhosis ??? Diabetes ??? DM II (diabetes mellitus, type II), controlled ??? Gout ??? Hyperlipidemia ??? Hypertension ??? Kidney stone ??? 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 Obesity ??? Shingles 2009 Past Surgical History Procedure Laterality Date ??? Umbilical hernia repair ??? Ureter stent placement renal stent ??? Tunneled venous port placement Jun 2012 ??? Tunneled venous port placement ??? Pro bone marrow aspiration w/bx through same incision/site 05/28/2013 ([facility]) BONE MARROW ASP PERFORMED W/BX THRU BX INCISION performed by Alem Evangelista MD at [facility] ??? Pro bone marrow bx, needle/trocar 05/28/2013 ([facility]) BONE MARROW,BIOPSY performed by Alem Evangelista MD at [facility] ??? Muscle biopsy 2008 ??? Lithotripsy ??? Tunneled venous port placement 2011 ??? Pro colonoscopy, diagnostic 07/21/2013 COLONOSCOPY, DIAGNOSTIC performed by Royer Temple MD at [facility] ??? Pro endoscopic us exam, esoph 07/21/2013 UPPER EUS- ENDOSCOPIC ULTRASOUND performed by Royer Temple MD at [facility] ??? Pro upper gi endoscopy, biopsy 07/21/2013 UPPER GASTROINTESTINAL ENDOSCOPY,WITH BIOPSY SINGLE OR MULTIPLE performed by Royer Temple MD at [facility] ??? Pro upper gi endoscopy, diagnostic N/A 08/30/2015 EGD, UPPER GI ENDOSCOPY performed by Anastasia Mccauley MD at [facility] ??? Pro bone marrow aspiration w/bx through same incision/site Right 04/10/2016 ([facility]) BONE MARROW ASP PERFORMED W/BX THRU BX INCISION performed by Jayden Ignacio MD at [facility] ??? Pro bone marrow bx, needle/trocar Right 04/10/2016 ([facility]) BONE MARROW,BIOPSY performed by Jayden Ignacio MD at [facility] Home Medications: No current facility-administered medications on file prior to encounter. Current Outpatient Prescriptions on File Prior to Encounter Medication Sig Dispense Refill ??? ferrous gluconate (FERGON) 240 mg (27 mg iron) Tablet Take 240 mg by mouth 3 times daily (with meals). ??? BD INSULIN PEN NEEDLE UF SHORT 31 gauge x 5/16 Needle USE 5 DAILY WITH LANTUS AND HUMALOG. 4 ??? glipiZIDE (GLUCOTROL XL) 10 mg Tablet Extended Rel 24 hr TAKE ONE TABLET BY MOUTH EVERY DAY 3 ??? LANTUS SOLOSTAR Insulin Pen INJECT 25 UNITS SUBCUTANEOUSLY EVERY MORNING AND 80 UNITS IN THE EVENING DOSE INCREASE 5 ??? HUMALOG KWIKPEN Insulin Pen INJECT UNDER THE SKIN DIRECTED BEFORE MEALS MAXIMUM OF 40 UNITS TOTAL PER DAY 3 ??? ferrous sulfate 324 mg (65 mg iron) Tablet, Delayed Release (E.C.) Take 324 mg by mouth every other day. ??? terazosin (HYTRIN) 5 mg Capsule Take 5 mg by mouth nightly. ??? indomethacin (INDOCIN) 50 mg Capsule Take [...] tablet Take 2 tablets by mouth daily. Azathioprine 50 mg, started 06/25/16. IVIG once per month for two days. Solumedrol with the infusion as well. Takes 10-12 units humalog per meal Allergy: Allergies Allergen Reactions ??? Methotrexate Hives, Itching and Rash ??? Morphine Itching ??? Sbsgzch-Nrf-Mdz Reductase Inhibitors Myopathy Family History: Family History Problem Relation Age of Onset ??? Colorectal Cancer Mother 59 ??? Diabetes Mother ??? Obesity Mother ??? Myocardial Infarction Father first [place] at 36 ??? Coronary Artery Disease Father ??? Hypertension Father ??? Hyperlipidemia Father ??? Stomach Cancer Other uncle ??? Type 2 Diabetes Paternal Uncle ??? Obesity Sister ??? Type 2 Diabetes Sister ??? Cirrhosis Paternal Aunt Alcohol Abuse Social History: Smoking: Never. EtOH: Denies. Illicits: Denies. Living situation: [place], [place]. Lives with . Has a dog, Checo. Occupation: Disabled. When he feels good, he has some woodworking that he does for enjoyment. Also helps out with 11 grandchildren. Review of systems: Constitutional: No fevers or chills, weight changes in last two days. Did have episodes of Hot and sweaty last week a few times. Fever was 100.2. Eyes: No vision changes, no diplopia, no blurry vision ENT: No rhinorrhea or pharyngitis, no meningismus CV: No chest pain or palpitations Resp: + cough, no shortness of breath GI: No nausea, vomiting, diarrhea or constipation - Has had three episodes of black, runny stool : No dysuria, no incontinence Heme: No bleeding or bruising Endo: No polyuria or cold intolerance Neuro: See HPI Derm: No suspicious rashes or itching Psych: No depression, normal sleep [x] Review of systems otherwise negative Physical Exam: Vitals: Temp: [36.8 ??C (98.2 ??F)] Heart Rate: [70] Resp: [15] BP: (126)/(58) SpO2: [97 %] Heart Rate from SPO2: -- Gen: Patient of apparent stated age, well nourished, well developed, awake, alert, NAD Neck: Supple, no meningismus, no carotid bruit, no occipital tenderness Resp: Normal respiratory effort, frequent non-productive coughs Abd: Obese, soft, nontender, nondistended Ext: Bilateral knee edema, with tenderness to palpation along joint line, as well as around patella bilaterally. Neuro Exam: MS: AAOx4, clear language, no dysarthria, follows simple and complex commands CN: Pupils 4mm ERRL, EOMI, visual cano full to confrontation Facial sensation intact to soft touch, temperature, vibration, no facial asymmetry Hearing intact to tuning fork Palate elevates symmetrically, tongue protrudes midline SCM and trap strength intact Motor: Normal bulk and tone. UE: 5/5 R, 5/5 L Arm abduction at shoulder 5/5 R, 5/5 L Elbow extension 5/5 R, 5/5 L Elbow flexion 5/5 R, 5/5 L [employer] LE: 3/5 R, 3/5 L Hip flexion 3/5 R, 3/5 L Knee extension - NB: Hip and knee strength also limited by pain. 3/5 R, 3/5 L Knee flexion 5/5 R, 5/5 L Foot dorsiflexion 5/5 R, 5/5 L Foot plantar flexion Sensation: Intact to light touch, temperature, and vibration throughout Reflexes: DTRs 2+ R, 2+ L Biceps 2+ R, 2+ L Brachioradialis 2+ R, 2+ L Triceps 1+ R, 1+ L Patellar Trace R, Trace L Achilles tendon Toes - Mute bilaterally Coordination: Finger to nose intact, no dysmetria Rapid alternating movements & finger tapping smooth and symmetric No tremor Gait: Not assessed Labs: No results found for this or any previous visit (from the past 24 hour(s)). Diagnostic Tests and Imaging Assessment and Plan: Bucky Acevedo is a 56 y.o. 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 He also has a PMH of HTN, HLD, T2DM, GERD, Gout, and is presenting with progressive leg weakness resulting in inability to walk, in the setting of viral URI. It is most likely that he is having a worsening of his myopathy due to viral illness. He does think the symptoms are exactly the same. Would suggest obtaining CK to assess whether his myopathy is indeed worsening (A CK of >500, his baseline, would suggest this, in which case he would be a good admission for myopathy exacerbation). He also has a diarrhea with black stools of unclear etiology. He is scheduled for an outpatient EGD on 08/02/16 for EGD for assessement of iron-deficiency anemia, as well as Durand esophagus. A CBC should certainly be obtained to evaluate for worsened anemia. Although is iron supplements could cause black stools, we suggest it would not be unreasonable to be assessed by gastroenterology. He also has a URI of unclear etiology. Would suggest workup of this by chest x- ray and viral DFA. # Recommendations: - Send for Flu, respiratory virus panel; droplet precautions - CBC, BMP, CPK - CXR - EKG - UA - We will continue to check on this patient tonight, please don't hesitate to contact us with further questions or concerns Derrell Malone MD Neurology Pager [phone] 07/09/2016 Associated attestation - Celso Casiano MD - 07/10/2016 7:55 AM EST I have seen the patient and reviewed the resident's above history and I agree with the details as written. The assessment and plan were formulated in discussion with me and I agree with them as documented. Celso Casiano MD documented in this encounter Plan of Treatment Upcoming Encounters Date Type Specialty Care Team Description 06/19/2022 Office Visit Rheumatology Richi Blackmon MD [facility] RHEUMATOLOGY [place], [place] [address] (Wo rk) Scheduled Procedures Name Priority Associated Diagnoses Date/Time EGD, UPPER GI ENDOSCOPY Family hx of colon cance r COLONOSCOPY, DIAGNOSTIC Family hx of colon cance r documented as of this encounter Procedures Procedure Name Priority Date/Time Associated Comments Diagnosis POCT GLUCOSE Routine 07/13/2016 11:21 Results for this AM EST procedure are i n the results section. HEMOGRAM Routine 07/13/2016 8:42 AM Results f or this EST procedure are i n the results section. DIFFERENTIAL, Routine 07/13/2016 8:42 AM Results for this AUTOMATED EST procedure are i n the results section. CBC (WITH DIFF) Routine 07/13/2016 8:42 AM EST POCT GLUCOSE Routine 07/13/2016 7:28 AM Results f or this EST procedure are i n the results section. BASIC METABOLIC PANEL Routine 07/13/2016 6:49 AM Results for this (NON-FASTING) EST procedure are in the results section. POCT GLUCOSE Routine 07/13/2016 6:20 AM Results f or this EST procedure are i n the results section. POCT GLUCOSE Routine 07/13/2016 3:57 AM Results f or this EST procedure are i n the results section. POCT GLUCOSE Routine 07/13/2016 1:07 AM Results f or this EST procedure are i n the results section. POCT GLUCOSE Routine 07/12/2016 11:07 Results for this PM EST procedure are i n the results section. POCT GLUCOSE Routine 07/12/2016 9:07 PM Results f or this EST procedure are i n the results section. POCT GLUCOSE Routine 07/12/2016 6:51 PM Results f or this EST procedure are i n the results section. POCT GLUCOSE Routine 07/12/2016 4:44 PM Results f or this EST procedure are i n the results section. BASIC METABOLIC PANEL Routine 07/12/2016 4:11 PM Results for this (NON-FASTING) EST procedure are in the results section. POCT GLUCOSE Routine 07/12/2016 1:43 PM Results f or this EST procedure are i n the results section. POCT GLUCOSE Routine 07/12/2016 11:31 Results for this AM EST procedure are i n the results section. POCT GLUCOSE Routine 07/12/2016 7:39 AM Results f or this EST procedure are i n the results section. POCT GLUCOSE Routine 07/12/2016 6:03 AM Results f or this EST procedure are i n the results section. BASIC METABOLIC PANEL Routine 07/12/2016 5:33 AM Results for this (NON-FASTING) EST procedure are in the results section. HEMOGRAM Routine 07/12/2016 5:01 AM Results f or this EST procedure are i n the results section. DIFFERENTIAL, Routine 07/12/2016 5:01 AM Results for this AUTOMATED EST procedure are i n the results section. CBC (WITH DIFF) Routine 07/12/2016 5:01 AM EST POCT GLUCOSE Routine 07/12/2016 4:15 AM Results f or this EST procedure are i n the results section. POCT GLUCOSE Routine 07/12/2016 12:35 Results for this AM EST procedure are i n the results section. POCT GLUCOSE Routine 07/11/2016 8:03 PM Results f or this EST procedure are i n the results section. POCT GLUCOSE Routine 07/11/2016 6:10 PM Results f or this EST procedure are i n the results section. POCT GLUCOSE Routine 07/11/2016 4:42 PM Results f or this EST procedure are i n the results section. ELECTROLYTES, URINE, Routine 07/11/2016 4:13 PM R esults for this RANDOM EST procedure are i n the results section. CREATININE, URINE, Routine 07/11/2016 4:13 PM Res ults for this RANDOM EST procedure are i n the results section. POCT GLUCOSE Routine 07/11/2016 3:51 PM Results f or this EST procedure are i n the results section. URIC ACID Routine 07/11/2016 3:46 PM Results f or this EST procedure are i n the results section. BASIC METABOLIC PANEL Routine 07/11/2016 3:46 PM Results for this (NON-FASTING) EST procedure are in the results section. POCT GLUCOSE Routine 07/11/2016 1:49 PM Results f or this EST procedure are i n the results section. POCT GLUCOSE Routine 07/11/2016 11:43 Results for this AM EST procedure are i n the results section. POCT GLUCOSE Routine 07/11/2016 7:36 AM Results f or this EST procedure are i n the results section. HEMOGRAM Routine 07/11/2016 7:35 AM Results f or this EST procedure are i n the results section. DIFFERENTIAL, Routine 07/11/2016 7:35 AM Results for this AUTOMATED EST procedure are i n the results section. CBC (WITH DIFF) Routine 07/11/2016 7:35 AM EST MAGNESIUM Routine 07/11/2016 7:35 AM Results f or this EST procedure are i n the results section. BASIC METABOLIC PANEL Routine 07/11/2016 7:35 AM Results for this (NON-FASTING) EST procedure are in the results section. ABORH RECHECK STATUS Routine 07/11/2016 4:57 AM R esults for this EST procedure are i n the results section. ABO/RH TYPING Routine 07/11/2016 4:57 AM Results for this EST procedure are i n the results section. ANTIBODY SCREEN Routine 07/11/2016 4:57 AM Result s for this EST procedure are i n the results section. TYPE AND SCREEN Routine 07/11/2016 4:57 AM ([facility]/CGP/DONATO) EST POCT GLUCOSE Routine 07/11/2016 3:30 AM Results f or this EST procedure are i n the results section. POCT GLUCOSE Routine 07/11/2016 12:53 Results for this AM EST procedure are i n the results section. POCT GLUCOSE Routine 07/10/2016 11:04 Results for this PM EST procedure are i n the results section. POCT GLUCOSE Routine 07/10/2016 8:54 PM Results f or this EST procedure are i n the results section. URIC ACID Routine 07/10/2016 5:52 PM Results f or this EST procedure are i n the results section. CK STAT 07/10/2016 5:52 PM Results f or this EST procedure are i n the results section. POCT GLUCOSE Routine 07/10/2016 3:48 PM Results f or this EST procedure are i n the results section. CRYSTAL EXAM BODY Routine 07/10/2016 2:40 PM Resu lts for this FLUID EST procedure are i n the results section. BODY FLUID CULTURE, Routine 07/10/2016 2:40 PM Re sults for this AEROBIC EST procedure are i n the results section. CELL COUNT BODY FLUID Routine 07/10/2016 2:40 PM Results for this EST procedure are i n the results section. POCT GLUCOSE Routine 07/10/2016 12:21 Results for this PM EST procedure are i n the results section. XR KNEE AP AND LAT Routine 07/10/2016 12:02 Resul ts for this BILAT PM EST procedure are i n the results section. PERIPHERAL SMEAR Routine 07/10/2016 10:00 Results for this REVIEW AM EST procedure are i n the results section. SCAN, PERIPHERAL BLOOD Routine 07/10/2016 10:00 R esults for this AM EST procedure are i n the results section. HEMOGRAM Routine 07/10/2016 10:00 Results for this AM EST procedure are i n the results section. DIFFERENTIAL, Routine 07/10/2016 10:00 Results fo r this AUTOMATED AM EST procedure are i n the results section. BLOOD CULTURE STAT 07/10/2016 10:00 Results fo r this AM EST procedure are i n the results section. TSH Routine 07/10/2016 10:00 Results for this AM EST procedure are i n the results section. PHOSPHORUS Routine 07/10/2016 10:00 Results for this AM EST procedure are i n the results section. MAGNESIUM Routine 07/10/2016 10:00 Results for this AM EST procedure are i n the results section. CK Routine 07/10/2016 10:00 Results for this AM EST procedure are i n the results section. HEPATIC FUNCTION PANEL Routine 07/10/2016 10:00 R esults for this AM EST procedure are i n the results section. SMEAR REVIEW REPORT Routine 07/10/2016 9:00 AM Re sults for this EST procedure are i n the results section. POCT GLUCOSE Routine 07/10/2016 7:26 AM Results f or this EST procedure are i n the results section. POCT GLUCOSE Routine 07/10/2016 3:57 AM Results f or this EST procedure are i n the results section. HEMOGRAM STAT 07/10/2016 12:40 Results for this AM EST procedure are i n the results section. DIFFERENTIAL, STAT 07/10/2016 12:40 Results fo r this AUTOMATED AM EST procedure are i n the results section. BLOOD CULTURE STAT 07/10/2016 12:40 Results fo r this AM EST procedure are i n the results section. CBC (WITH DIFF) STAT 07/10/2016 12:40 AM EST MAGNESIUM STAT 07/10/2016 12:40 Results for this AM EST procedure are i n the results section. BASIC METABOLIC PANEL STAT 07/10/2016 12:40 Re sults for this (NON-FASTING) AM EST procedure are in the results section. POCT GLUCOSE Routine 07/10/2016 12:13 Results for this AM EST procedure are i n the results section. URINE HOLD STAT 07/09/2016 10:25 Results for this PM EST procedure are i n the results section. URINALYSIS WITH REFLEX STAT 07/09/2016 10:25 R esults for this CULTURE PM EST procedure are i n the results section. URINE CULTURE STAT 07/09/2016 10:25 Results fo r this PM EST procedure are i n the results section. POCT GLUCOSE Routine 07/09/2016 8:43 PM Results f or this EST procedure are i n the results section. RAPID INFLUENZA A/B STAT 07/09/2016 6:02 PM Re sults for this PCR (DONATO) EST procedure are i n the results section. RESP VIRUS AG PANEL STAT 07/09/2016 6:02 PM Re sults for this EST procedure are i n the results section. CRP, ACUTE STAT 07/09/2016 5:51 PM Results f or this INFLAMMATION EST procedure are i n the results section. HEMOGRAM STAT 07/09/2016 5:51 PM Results f or this EST procedure are i n the results section. DIFFERENTIAL, STAT 07/09/2016 5:51 PM Results for this AUTOMATED EST procedure are i n the results section. SEDIMENTATION RATE STAT 07/09/2016 5:51 PM Res ults for this EST procedure are i n the results section. TSH STAT 07/09/2016 5:51 PM Results f or this EST procedure are i n the results section. CK STAT 07/09/2016 5:51 PM Results f or this EST procedure are i n the results section. HEPATIC FUNCTION PANEL STAT 07/09/2016 5:51 PM Results for this EST procedure are i n the results section. BASIC METABOLIC PANEL STAT 07/09/2016 5:51 PM Results for this (NON-FASTING) EST procedure are in the results section. EKG 12-LEAD STAT 07/09/2016 4:58 PM Myopathy Results f or this EST procedure are i n the results section. XR CHEST PA AND STAT 07/09/2016 4:50 PM Result s for this LATERAL EST procedure are i n the results section. documented in this encounter Results (ABNORMAL) POCT Glucose (07/13/2016 11:21 AM EST) P athologist Signature POC Glucose 204 (H) 65 - 199 [facility] mg/dL [facility] Comment: Supplemental ranges: <140 mg/dL before meals <180 mg/dL all other times of the day Specimen Anatomical Collection Method Collection Time Receive d Time (Source) Location / / Volume Laterality Blood specimen 07/13/2016 11:21 7 (specimen) AM EST 11:21 AM EST Augustina Tao MD POINT OF CARE TEST ORDERABLE S Performing Organization Address City/State/ZIP Code Phon e Number [address] (ABNORMAL) Differential, Automated (07/13/2016 8:42 AM EST) [facility] Method Time Signature Neutrophils % 86.0 % [facility] LABORATORY Neutr Abs (ANC) 6.84 (H) 1.70 - [facility] 6.10 [facility] x10(3)/[facility] L LABORATORY Lymphocytes % 6.4 % [facility] LABORATORY Lymphocytes Abs 0.5 (L) 0.9 - 3.2 [facility] x10(3)/[facility] LABORATORY Monocytes % 6.5 % [facility] LABORATORY Monocyte Abs 0.5 0.3 - 0.9 [facility] x10(3)/[facility] LABORATORY Eosinophils % 0.0 % [facility] LABORATORY Eosinophils Abs 0.0 0.0 - 0.4 [facility] x10(3)/[facility] LABORATORY Basophils % 0.0 % [facility] LABORATORY Basophils Abs 0.0 0.0 - 0.1 [facility] x10(3)/[facility] LABORATORY Immature Gran % 1.10 % [facility] LABORATORY Comment: Immature granulocytes(IG's)percentage an d absolute count will include metamyelocytes, myelocytes, and promyelo cytes. Blood smears from CBCs yielding IG's will be scanned manually for concor dance. If this scan disagrees with the automated IG or if promyelocytes are not ed, a manual differential will be performed. Tamara Gran Abs 0.09 (H) 0.00 - 0.04 x10(3)/[facility] LABORATORY Specimen Anatomical Collection Method Collection Time Receive d Time (Source) Location / / Volume Laterality Blood specimen 07/13/2016 8:42 AM 017 8:48 (specimen) EST AM EST Resulting Agency Comment Spec In Lab Augustina Tao MD HEMATOLOGY ORDERABLES Performing Organization Address City/[facility]/ZIP Code Phon e Number [place] [id number] LAB[address]ORY [address] (ABNORMAL) Hemogram (07/13/2016 8:42 AM EST) Patholo gist Method Time Signature WBC 8.0 4.0 - 9.5 [facility] x10(3)/[facility] LABORATORY RBC 2.92 (L) 4.58 - [facility] 5.54 [facility] x10(6)/[facility] LABORATORY Hemoglobin 8.3 (L) 13.7 - [facility] 16[facility] gm[facility]dL [facility] LABORATORY Hematocrit 25.5 (L) 40.5 - [facility] 48.5 % [facility] LABORATORY MCV 87.3 82.9 - [facility] 93.1 [facility] LABORATORY MCH 28.4 27.5 - [facility] 32.1 pg [facility] LABORATORY MCHC 32.5 32.0 - [facility] 35.7 gm/dL [facility] LABORATORY Platelets 174 145 - 357 [facility] x10(3)/[facility] LABORATORY RDWSD 53.1 (H) 36.0 - [facility] 45.0 [facility] LABORATORY RDWCV 16.6 (H) 11.4 - [facility] 13.8 % [facility] LABORATORY MPV 11.5 7.6 - 12.9 [facility] LABORATORY nRBC % Auto 0.3 % [facility] LABORATORY nRBC Abs Auto 0.020 (H) 0.000 - [facility] 0.000 [facility] x10(3)/[facility] LABORATORY Specimen Anatomical Collection Method Collection Time Receive d Time (Source) Location / / Volume Laterality Blood specimen 07/13/2016 8:42 AM 017 8:48 (specimen) EST AM EST Resulting Agency Comment Spec In Lab Augustina Tao MD HEMATOLOGY ORDERABLES Performing Organization Address City/State/ZIP Code Phon e Number [address] POCT Glucose (07/13/2016 7:28 AM EST) P athologist Signature POC Glucose 175 65 - 199 [facility] mg/dL [facility] LABORATORY Comment: Supplemental ranges: <140 mg/dL before meals <180 mg/dL all other times of the day Specimen Anatomical Collection Method Collection Time Receive d Time (Source) Location / / Volume Laterality Blood specimen 07/13/2016 7:28 AM 017 7:28 (specimen) EST AM EST Augustina Tao MD POINT OF CARE TEST ORDERABLE S Performing Organization Address City/State/[place] [address] (ABNORMAL) Basic Metabolic Panel (non-fasting) (07/13/2016 6:49 AM EST) athologist Signature Glucose Lvl 200 (H) 65 - 199 [facility] mg/dL [facility] LABORATORY Comment: Diabetes: >=200 mg/dL plus symp toms BUN 57 (H) 10 - 20 mg/dL [facility] LABORATORY Creatinine 1.31 0.80 - 1.50 mg/dL [facility] LABORATORY Comment: Please note that the pediatric reference intervals supplied above were not validated at [facility]. Results from pediatri c patients should be interpreted in conjunction to the patient's age, height and muscle mass. Sodium 135 135 - 145 mmol/L [facility] LABORATORY Potassium 5.3 (H) 3.5 - 5.0 mmol/L [facility] LABORATORY Comment: Please note: ??Patients with WBC >100,00 0 may have falsely elevated Potassium levels. ??For accurate Potassium quantif ication in these patients send serum separator tube (gold top) for subsequent determinations. ??Contact the Clinical Chemistry Laboratory if there are any qu estions. Chloride 104 98 - 107 mmol/L [facility] LABORATORY CO2 19 (L) 22 - 31 mmol/L [facility] LABORATORY Anion Gap 12 5 - 15 mmol/L [facility] LABORATORY Calcium 9.3 8.5 - 10.5 mg/dL [facility] LABORATORY Estimated GFR 56 (L) >=60 [facility] LABORATORY Comment: This estimated GFR (eGFR) [...] the following links into your internet browser. [email or web address] Specimen Anatomical Collection Method Collection Time Receive d Time (Source) Location / / Volume Laterality Blood specimen 07/13/2016 6:49 AM 017 6:57 (specimen) EST AM EST Resulting Agency Comment Spec In Lab Celso Casiano MD CHEMISTRY ORDERABLES Performing Organization Address City/[facility] Code Phon e Number [address] (ABNORMAL) POCT Glucose (07/13/2016 6:20 AM EST) P athologist Signature POC Glucose 204 (H) 65 - 199 [facility] mg/dL [facility] LABORATORY Comment: Supplemental ranges: <140 mg/dL before meals <180 mg/dL all other times of the day Specimen Anatomical Collection Method Collection Time Receive d Time (Source) Location / / Volume Laterality Blood specimen 07/13/2016 6:20 AM 017 6:20 (specimen) EST AM EST Augustina Tao MD POINT OF CARE TEST ORDERABLE S Performing Organization Address [facility]/[place]IP [place] [address] (ABNORMAL) POCT Glucose (07/13/2016 3:57 AM EST) P athologist Signature POC Glucose 253 (H) 65 - 199 [facility] mg/dL [facility] LABORATORY Comment: Supplemental ranges: <140 mg/dL before meals <180 mg/dL all other times of the day Specimen Anatomical Collection Method Collection Time Receive d Time (Source) Location / / Volume Laterality Blood specimen 07/13/2016 3:57 AM 017 3:57 (specimen) EST AM EST Augustina Tao MD POINT OF CARE TEST ORDERABLE S Performing Organization Address City/State/[place] [address] (ABNORMAL) POCT Glucose (07/13/2016 1:07 AM EST) athologist Signature POC Glucose 266 (H) 65 - 199 [facility] mg/dL [facility] LABORATORY Comment: Supplemental ranges: <140 mg/dL before meals <180 mg/dL all other times of the day Specimen Anatomical Collection Method Collection Time Receive d Time (Source) Location / / Volume Laterality Blood specimen 07/13/2016 1:07 AM 017 1:07 (specimen) EST AM EST Augustina Tao MD POINT OF CARE TEST ORDERABLE S Performing Organization Address City/State/[place] [address] (ABNORMAL) POCT Glucose (07/12/2016 11:07 PM EST) athologist Signature POC Glucose 285 (H) 65 - 199 [facility] LABORATORY Comment: Supplemental ranges: <140 mg/dL before meals <180 mg/dL all other times of the day Specimen Anatomical Collection Method Collection Time Receive d Time (Source) Location / / Volume Laterality Blood specimen 07/12/2016 11:07 7 (specimen) PM EST 11:07 PM EST Augustina Tao MD POINT OF CARE TEST ORDERABLE S Performing Organization Address City/State/[place] [address] (ABNORMAL) POCT Glucose (07/12/2016 9:07 PM EST) athologist Signature POC Glucose 332 (H) 65 - 199 [facility] mg/dL [facility] LABORATORY Comment: Supplemental ranges: <140 mg/dL before meals <180 mg/dL all other times of the day Specimen Anatomical Collection Method Collection Time Receive d Time (Source) Location / / Volume Laterality Blood specimen 07/12/2016 9:07 PM 017 9:07 (specimen) EST PM EST Augustina aTo MD POINT OF CARE TEST ORDERABLE S Performing Organization Address City/State/[place] [address] (ABNORMAL) POCT Glucose (07/12/2016 6:51 PM EST) athologist Signature POC Glucose 373 (H) 65 - 199 [facility] LABORATORY Comment: Supplemental ranges: <140 mg/dL before meals <180 mg/dL all other times of the day Specimen Anatomical Collection Method Collection Time Receive d Time (Source) Location / / Volume Laterality Blood specimen 07/12/2016 6:51 PM 017 6:51 (specimen) EST PM EST Augustina Tao MD POINT OF CARE TEST ORDERABLE S Performing Organization Address City/[facility]/[place] [address] (ABNORMAL) POCT Glucose (07/12/2016 4:44 PM EST) athologist Signature POC Glucose 276 (H) 65 - 199 [facility] mg/dL [facility] LABORATORY Comment: Supplemental ranges: <140 mg/dL before meals <180 mg/dL all other times of the day Specimen Anatomical Collection Method Collection Time Receive d Time (Source) Location / / Volume Laterality Blood specimen 07/12/2016 4:44 PM 017 4:44 (specimen) EST PM EST Augustina Tao MD POINT OF CARE TEST ORDERABLE S Performing Organization Address City/State/[place] [address] (ABNORMAL) Basic Metabolic Panel (non-fasting) (07/12/2016 4:11 PM EST) athologist Signature Glucose Lvl 269 (H) 65 - 199 [facility] mg/dL [facility] LABORATORY Comment: Diabetes: >=200 mg/dL plus symp toms BUN 62 (H) 10 - 20 mg/dL [facility] LABORATORY Creatinine 1.43 0.80 - 1.50 mg/dL [facility] LABORATORY Comment: Please note that the pediatric reference intervals supplied above were not validated at [facility]. Results from pediatri c patients should be interpreted in conjunction to the patient's age, height and muscle mass. Sodium 132 (L) 135 - 145 mmol/L [facility] LABORATORY Potassium 5.4 (H) 3.5 - 5.0 mmol/L [facility] LABORATORY Comment: Please note: ??Patients with WBC >100,00 0 may have falsely elevated Potassium levels. ??For accurate Potassium quantif ication in these patients send serum separator tube (gold top) for subsequent determinations. ??Contact the Clinical Chemistry Laboratory if there are any qu estions. Chloride 99 98 - 107 mmol/L [facility] LABORATORY CO2 18 (L) 22 - 31 mmol/L [facility] LABORATORY Anion Gap 15 5 - 15 mmol/L [facility] LABORATORY Calcium 9.4 8.5 - 10.5 mg/dL [facility] LABORATORY Estimated GFR 51 (L) >=60 [facility] LABORATORY Comment: This estimated GFR (eGFR) [...] the following links into your internet browser. [email or web address] Specimen Anatomical Collection Method Collection Time Receive d Time (Source) Location / / Volume Laterality Blood specimen 07/12/2016 4:11 PM 017 4:20 (specimen) EST PM EST Resulting Agency Comment Spec In Lab Celso Casiano MD CHEMISTRY ORDERABLES Performing Organization Address City/State/[place] [address] (ABNORMAL) POCT Glucose (07/12/2016 1:43 PM EST) athologist Signature POC Glucose 202 (H) 65 - 199 [facility] mg/dL [facility] LABORATORY Comment: Supplemental ranges: <140 mg/dL before meals <180 mg/dL all other times of the day Specimen Anatomical Collection Method Collection Time Receive d Time (Source) Location / / Volume Laterality Blood specimen 07/12/2016 1:43 PM 017 1:43 (specimen) EST PM EST Augustina Tao MD POINT OF CARE TEST ORDERABLE S Performing Organization Address City/State/[place] [address] (ABNORMAL) POCT Glucose (07/12/2016 11:31 AM EST) P athologist Signature POC Glucose 247 (H) 65 - 199 [facility] LABORATORY Comment: Supplemental ranges: <140 mg/dL before meals <180 mg/dL all other times of the day Specimen Anatomical Collection Method Collection Time Receive d Time (Source) Location / / Volume Laterality Blood specimen 07/12/2016 11:31 7 (specimen) AM EST 11:31 AM EST Augustina Tao MD POINT OF CARE TEST ORDERABLE S Performing Organization Address City/State/[place] [address] (ABNORMAL) POCT Glucose (07/12/2016 7:39 AM EST) P athologist Signature POC Glucose 230 (H) 65 - 199 [facility] LABORATORY Comment: Supplemental ranges: <140 mg/dL before meals <180 mg/dL all other times of the day Specimen Anatomical Collection Method Collection Time Receive d Time (Source) Location / / Volume Laterality Blood specimen 07/12/2016 7:39 AM 017 7:39 (specimen) EST AM EST Augustina Tao MD POINT OF CARE TEST ORDERABLE S Performing Organization Address City/State/[place] [address] (ABNORMAL) POCT Glucose (07/12/2016 6:03 AM EST) P athologist Signature POC Glucose 266 (H) 65 - 199 [facility] mg/dL [facility] LABORATORY Comment: Supplemental ranges: <140 mg/dL before meals <180 mg/dL all other times of the day Specimen Anatomical Collection Method Collection Time Receive d Time (Source) Location / / Volume Laterality Blood specimen 07/12/2016 6:03 AM 017 6:03 (specimen) EST AM EST Augustina Tao MD POINT OF CARE TEST ORDERABLE S Performing Organization Address City/State/[place] [address] (ABNORMAL) Basic Metabolic Panel (non-fasting) (07/12/2016 5:33 AM EST) athologist Signature Glucose Lvl 250 (H) 65 - 199 [facility] mg/dL [facility] LABORATORY Comment: Diabetes: >=200 mg/dL plus symp toms BUN 67 (H) 10 - 20 mg/dL [facility] LABORATORY Creatinine 1.43 0.80 - 1.50 mg/dL [facility] LABORATORY Comment: Please note that the pediatric reference intervals supplied above were not validated at [facility]. Results from pediatri c patients should be interpreted in conjunction to the patient's age, height and muscle mass. Sodium 128 (L) 135 - 145 mmol/L [facility] LABORATORY Potassium 5.2 (H) 3.5 - 5.0 mmol/L [facility] LABORATORY Comment: Please note: ??Patients with WBC >100,00 0 may have falsely elevated Potassium levels. ??For accurate Potassium quantif ication in these patients send serum separator tube (gold top) for subsequent determinations. ??Contact the Clinical Chemistry Laboratory if there are any qu estions. Chloride 96 (L) 98 - 107 mmol/L [facility] LABORATORY CO2 19 (L) 22 - 31 mmol/L [facility] LABORATORY Anion Gap 13 5 - 15 mmol/L [facility] LABORATORY Calcium 9.2 8.5 - 10.5 mg/dL [facility] LABORATORY Estimated GFR 51 (L) >=60 [facility] LABORATORY Comment: This estimated GFR (eGFR) [...] the following links into your internet browser. [email or web address] Specimen Anatomical Collection Method Collection Time Receive d Time (Source) Location / / Volume Laterality Blood specimen 07/12/2016 5:33 AM 017 5:58 (specimen) EST AM EST Resulting Agency Comment Spec In Lab Celso Casiano MD CHEMISTRY ORDERABLES Performing Organization Address City/State/[place] [address] (ABNORMAL) Differential, Automated (07/12/2016 5:01 AM EST) [facility] Method Time Signature Neutrophils % 88.4 % [facility] LABORATORY Neutr Abs (ANC) 5.77 1.70 - [facility] 6.10 [facility] x10(3)/[facility] LABORATORY Lymphocytes % 5.5 % [facility] LABORATORY Lymphocytes Abs 0.4 (L) 0.9 - 3.2 [facility] x10(3)/[facility] LABORATORY Monocytes % 5.5 % [facility] LABORATORY Monocyte Abs 0.4 0.3 - 0.9 [facility] x10(3)/[facility] LABORATORY Eosinophils % 0.0 % [facility] LABORATORY Eosinophils Abs 0.0 0.0 - 0.4 [facility] x10(3)/[facility] LABORATORY Basophils % 0.0 % [facility] LABORATORY Basophils Abs 0.0 0.0 - 0.1 [facility] x10(3)/[facility] LABORATORY Immature Gran % 0.60 % [facility] LABORATORY Comment: Immature granulocytes(IG's)percentage an d absolute count will include metamyelocytes, myelocytes, and promyelo cytes. Blood smears from CBCs yielding IG's will be scanned manually for monserrat bowens. If this scan disagrees with the automated IG or if promyelocytes are not ed, a manual differential will be performed. Tamara Gran Abs 0.04 0.00 - 0.04 x10(3)/[facility] LABORATORY Specimen Anatomical Collection Method Collection Time Receive d Time (Source) Location / / Volume Laterality Blood specimen 07/12/2016 5:01 AM 017 5:20 (specimen) EST AM EST Resulting Agency Comment Spec In Lab Celso Casiano MD HEMATOLOGY ORDERABLES Performing Organization Address City/State/[place] [address] (ABNORMAL) Hemogram (07/12/2016 5:01 AM EST) Analysis Performed At Patho logist Time Signature WBC 6.5 4.0 - 9.5 [facility] x10(3)/[facility] LABORATORY RBC 2.69 (L) 4.58 - [facility] 5.54 [facility] x10(6)/[facility] LABORATORY Hemoglobin 7.5 (L) 13.7 - [facility] 16.5 gm/dL [facility] LABORATORY Hematocrit 23.3 (L) 40.5 - [facility] 48.5 % [facility] LABORATORY MCV 86.6 82.9 - [facility] 93.1 [facility] LABORATORY MCH 27.9 27.5 - [facility] 32.1 pg [facility] LABORATORY MCHC 32.2 32.0 - [facility] 35.7 gm/dL [facility] LABORATORY Platelets 136 (L) 145 - 357 [facility] x10(3)/[facility] LABORATORY RDWSD 51.3 (H) 36.0 - [facility] 45.0 [facility] LABORATORY RDWCV 16.4 (H) 11.4 - [facility] 13.8 % [facility] LABORATORY MPV 11.9 7.6 - 12.9 [facility] LABORATORY nRBC % Auto 0.0 % [facility] LABORATORY nRBC Abs Auto 0.000 0.000 - [facility] 0.000 [facility] x10(3)/[facility] LABORATORY Specimen Anatomical Collection Method Collection Time Receive d Time (Source) Location / / Volume Laterality Blood specimen 07/12/2016 5:01 AM 017 5:20 (specimen) EST AM EST Resulting Agency Comment Spec In Lab Celso Casiano MD HEMATOLOGY ORDERABLES Performing Organization Address City/State/ZIP Code Phon e Number [address] (ABNORMAL) POCT Glucose (07/12/2016 4:15 AM EST) P athologist Signature POC Glucose 244 (H) 65 - 199 [facility] LABORATORY Comment: Supplemental ranges: <140 mg/dL before meals <180 mg/dL all other times of the day Specimen Anatomical Collection Method Collection Time Receive d Time (Source) Location / / Volume Laterality Blood specimen 07/12/2016 4:15 AM 017 4:15 (specimen) EST AM EST Augustina Tao MD POINT OF CARE TEST ORDERABLE S Performing Organization Address City/State/ZIP Code Phon e Number [address] (ABNORMAL) POCT Glucose (07/12/2016 12:35 AM EST) P athologist Signature POC Glucose 218 (H) 65 - 199 [facility] LABORATORY Comment: Supplemental ranges: <140 mg/dL before meals <180 mg/dL all other times of the day Specimen Anatomical Collection Method Collection Time Receive d Time (Source) Location / / Volume Laterality Blood specimen 07/12/2016 12:35 7 (specimen) AM EST 12:35 AM EST Augustina Tao MD POINT OF CARE TEST ORDERABLE S Performing Organization Address City/[facility]/ZIP Code Phon e Number [address] (ABNORMAL) POCT Glucose (07/11/2016 8:03 PM EST) P athologist Signature POC Glucose 205 (H) 65 - 199 [facility] mg/dL [facility] LABORATORY Comment: Supplemental ranges: <140 mg/dL before meals <180 mg/dL all other times of the day Specimen Anatomical Collection Method Collection Time Receive d Time (Source) Location / / Volume Laterality Blood specimen 07/11/2016 8:03 PM 017 8:03 (specimen) EST PM EST Augustina Tao MD POINT OF CARE TEST ORDERABLE S Performing Organization Address City/State/ZIP Code Phon e Number [address] (ABNORMAL) POCT Glucose (07/11/2016 6:10 PM EST) P athologist Signature POC Glucose 226 (H) 65 - 199 [facility] mg/dL [facility] LABORATORY Comment: Supplemental ranges: <140 mg/dL before meals <180 mg/dL all other times of the day Specimen Anatomical Collection Method Collection Time Receive d Time (Source) Location / / Volume Laterality Blood specimen 07/11/2016 6:10 PM 017 6:10 (specimen) EST PM EST Augustina Tao MD POINT OF CARE TEST ORDERABLE S Performing Organization Address City/State/[place] [address] (ABNORMAL) POCT Glucose (07/11/2016 4:42 PM EST) P athologist Signature POC Glucose 242 (H) 65 - 199 [facility] LABORATORY Comment: Supplemental ranges: <140 mg/dL before meals <180 mg/dL all other times of the day Specimen Anatomical Collection Method Collection Time Receive d Time (Source) Location / / Volume Laterality Blood specimen 07/11/2016 4:42 PM 017 4:42 (specimen) EST PM EST Celso Casiano MD POINT OF CARE TEST ORDERABLE S Performing Organization Address City/State/[place] [address] Creatinine, urine, random (07/11/2016 4:13 PM EST) P athologist Signature U Creatinine 41 mg/dL [facility] LABORATORY Specimen Anatomical Collection Method Collection Time Receive d Time (Source) Location / / Volume Laterality Urine specimen 07/11/2016 4:13 PM 017 4:20 (specimen) EST PM EST Resulting Agency Comment Spec In Lab Celso Casiano MD URINE ORDERABLES Performing Organization Address City/State/[place] [address] Electrolytes, urine, random (07/11/2016 4:13 PM EST) P athologist Signature U Sodium 31 mmol/L [facility] LABORATORY U Potassium 7 mmol/L [facility] LABOR[facility] U Chloride <20 mmol/L [facility] LABORATORY Specimen Anatomical Collection Method Collection Time Receive d Time (Source) Location / / Volume Laterality Urine specimen 07/11/2016 4:13 PM 017 4:20 (specimen) EST PM EST Resulting Agency Comment Spec In Lab Celso Casiano MD URINE ORDERABLES Performing Organization Address City/[facility]/ZIP Code Phon e Number [place] [id number] (ABNORMAL) POCT Glucose (07/11/2016 3:51 PM EST) athologist Signature POC Glucose 252 (H) 65 - 199 [facility] Comment: Supplemental ranges: <140 mg/dL before meals <180 mg/dL all other times of the day Specimen Anatomical Collection Method Collection Time Receive d Time (Source) Location / / Volume Laterality Blood specimen 07/11/2016 3:51 PM 017 3:51 (specimen) EST PM EST Celso Casiano MD POINT OF CARE TEST ORDERABLE S Performing Organization Address City/State/[place] [address] (ABNORMAL) Uric acid (07/11/2016 3:46 PM EST) athologist Signature Uric Acid 13.3 (H) 3.5 - 8.5 [facility] Specimen Anatomical Collection Method Collection Time Receive d Time (Source) Location / / Volume Laterality Blood specimen 07/11/2016 3:46 PM 017 3:54 (specimen) EST PM EST Resulting Agency Comment Spec In Lab Celso Casiano MD CHEMISTRY ORDERABLES Performing Organization Address City/State/ZIP Code Phon e Number [facility] [place] [address] (ABNORMAL) Basic Metabolic Panel (non-fasting) (07/11/2016 3:46 PM EST) athologist Signature Glucose Lvl 235 (H) 65 - 199 [facility] mg/dL [facility] Comment: Diabetes: >=200 mg/dL plus symp toms BUN 67 (H) 10 - 20 mg/dL [facility] Creatinine 1.71 (H) 0.80 - 1.50 mg/dL [facility] Comment: Please note that the pediatric reference intervals supplied above were not validated at [facility]. Results from pediatri c patients should be interpreted in conjunction to the patient's age, height and muscle mass. Sodium 125 (L) 135 - 145 mmol/L [facility] Potassium 5.2 (H) 3.5 - 5.0 mmol/L [facility] Comment: Please note: ??Patients with WBC >100,00 0 may have falsely elevated Potassium levels. ??For accurate Potassium quantif ication in these patients send serum separator tube (gold top) for subsequent determinations. ??Contact the Clinical Chemistry Laboratory if there are any qu estions. Chloride 90 (L) 98 - 107 mmol/L [facility] CO2 18 (L) 22 - 31 mmol/L [facility] Anion Gap 17 (H) 5 - 15 mmol/L [facility] Calcium 9.2 8.5 - 10.5 mg/dL [facility] Estimated GFR 41 (L) >=60 [facility] Comment: This estimated GFR (eGFR) [...] the following links into your internet browser. [email or web address] Specimen Anatomical Collection Method Collection Time Receive d Time (Source) Location / / Volume Laterality Blood specimen 07/11/2016 3:46 PM 017 3:54 (specimen) EST PM EST Resulting Agency Comment Spec In Lab Celso Casiano MD CHEMISTRY ORDERABLES Performing Organization Address City/[facility]/ZIP Code Phon e Number [address] (ABNORMAL) POCT Glucose (07/11/2016 1:49 PM EST) P athologist Signature POC Glucose 278 (H) 65 - 199 [facility] Comment: Supplemental ranges: <140 mg/dL before meals <180 mg/dL all other times of the day Specimen Anatomical Collection Method Collection Time Receive d Time (Source) Location / / Volume Laterality Blood specimen 07/11/2016 1:49 PM 017 1:49 (specimen) EST PM EST Celso Casiano MD POINT OF CARE TEST ORDERABLE S Performing Organization Address [facility]/[place]IP [place] [address] (ABNORMAL) POCT Glucose (07/11/2016 11:43 AM EST) P athologist Signature POC Glucose 254 (H) 65 - 199 [facility] mg/dL [facility] Comment: Supplemental ranges: <140 mg/dL before meals <180 mg/dL all other times of the day Specimen Anatomical Collection Method Collection Time Receive d Time (Source) Location / / Volume Laterality Blood specimen 07/11/2016 11:43 7 (specimen) AM EST 11:43 AM EST Celso Casiano MD POINT OF CARE TEST ORDERABLE S Performing Organization Address City/[facility]/ZIP Code Phon e Number [address] POCT Glucose (07/11/2016 7:36 AM EST) athologist Signature POC Glucose 164 65 - 199 [facility] mg/dL [facility] Comment: Supplemental ranges: <140 mg/dL before meals <180 mg/dL all other times of the day Specimen Anatomical Collection Method Collection Time Receive d Time (Source) Location / / Volume Laterality Blood specimen 07/11/2016 7:36 AM 017 7:36 (specimen) EST AM EST Celso aCsiano MD POINT OF CARE TEST ORDERABLE S Performing Organization Address City/State/ZIP Code Phon e Number [address] (ABNORMAL) Magnesium (07/11/2016 7:35 AM EST) athologist [facility] Magnesium 1.12 (H) 0.69 - 1.07 [facility] mmol/L [facility]OR[facility]ORY Specimen Anatomical Collection Method Collection Time Receive d Time (Source) Location / / Volume Laterality Blood specimen Venous Draw / 07/11/2016 7:35 AM 2016 7:42 (specimen) Unknown EST AM EST Resulting Agency Comment Spec In Lab Celso Casiano MD CHEMISTRY ORDERABLES Performing Organization Address City/State/ZIP Code Phon e Number [address] (ABNORMAL) Differential, Automated (07/11/2016 7:35 AM EST) Patholo gist Method Time Signature Neutrophils % 89.2 % [facility] Neutr Abs (ANC) 7.19 (H) 1.70 - [facility] 6.10 [facility] x10(3)/[facility] L LABORATORY Lymphocytes % 4.6 % [facility] LABORATORY Lymphocytes Abs 0.4 (L) 0.9 - 3.2 [facility] x10(3)/[facility] LABORATORY Monocytes % 6.0 % [facility] Monocyte Abs 0.5 0.3 - 0.9 [facility] x10(3)/[facility] LABORATORY Eosinophils % 0.0 % [facility] Eosinophils Abs 0.0 0.0 - 0.4 [facility] x10(3)/[facility] LABORATORY Basophils % 0.0 % [facility] Basophils Abs 0.0 0.0 - 0.1 [facility] x10(3)/[facility] LABORATORY Immature Gran % 0.20 % [facility] Comment: Immature granulocytes(IG's)percentage an d absolute count will include metamyelocytes, myelocytes, and promyelo cytes. Blood smears from CBCs yielding IG's will be scanned manually for concor dance. If this scan disagrees with the automated IG or if promyelocytes are not ed, a manual differential will be performed. Tamara Gran Abs 0.02 0.00 - 0.04 x10(3)/[facility] LABORATORY Specimen Anatomical Collection Method Collection Time Receive d Time (Source) Location / / Volume Laterality Blood specimen 07/11/2016 7:35 AM 017 7:40 (specimen) EST AM EST Resulting Agency Comment Spec In Lab Celso Casiano MD HEMATOLOGY ORDERABLES Performing Organization Address City/State/[place] [address] (ABNORMAL) Hemogram (07/11/2016 7:35 AM EST) Analysis Performed At Patho logist Time Signature WBC 8.1 4.0 - 9.5 [facility] x10(3)/[facility] LABORATORY RBC 2.63 (L) 4.58 - [facility] 5.54 [facility] x10(6)/[facility] LABORATORY Hemoglobin 7.5 (L) 13.7 - [facility] 16.5 gm/dL [facility] Hematocrit 22.3 (L) 40.5 - [facility] 48.5 % [facility] MCV 84.8 82.9 - [facility] 93.1 fL [facility] MCH 28.5 27.5 - [facility] 32.1 pg [facility] MCHC 33.6 32.0 - [facility] 35.7 gm/dL [facility] Platelets 124 (L) 145 - 357 [facility] x10(3)/[facility] LABORATORY RDWSD 51.5 (H) 36.0 - [facility] 45.0 [facility] LABORATORY RDWCV 16.6 (H) 11.4 - [facility] 13.8 % [facility] LABORATORY MPV 11.3 7.6 - 12.9 [facility] LABORATORY nRBC % Auto 0.0 % [facility] LABORATORY nRBC Abs Auto 0.000 0.000 - [facility] 0.000 [facility] x10(3)/[facility] LABORATORY Specimen Anatomical Collection Method Collection Time Receive d Time (Source) Location / / Volume Laterality Blood specimen 07/11/2016 7:35 AM 017 7:40 (specimen) EST AM EST Resulting Agency Comment Spec In Lab Celso Casiano MD HEMATOLOGY ORDERABLES Performing Organization Address City/State/[place] [address] (ABNORMAL) Basic Metabolic Panel (non-fasting) (07/11/2016 7:35 AM EST) athologist Signature Glucose Lvl 157 65 - 199 [facility] mg/dL [facility] Comment: Diabetes: >=200 mg/dL plus symp toms BUN 63 (H) 10 - 20 mg/dL [facility] Creatinine 1.82 (H) 0.80 - 1.50 mg/dL [facility] Comment: Please note that the pediatric reference intervals supplied above were not validated at [facility]. Results from pediatri c patients should be interpreted in conjunction to the patient's age, height and muscle mass. Sodium 129 (L) 135 - 145 mmol/L [facility] Potassium 5.3 (H) 3.5 - 5.0 mmol/L [facility] Comment: Please note: ??Patients with WBC >100,00 0 may have falsely elevated Potassium levels. ??For accurate Potassium quantif ication in these patients send serum separator tube (gold top) for subsequent determinations. ??Contact the Clinical Chemistry Laboratory if there are any qu estions. Chloride 93 (L) 98 - 107 mmol/L [facility] CO2 19 (L) 22 - 31 mmol/L [facility] Anion Gap 17 (H) 5 - 15 mmol/L [facility] Calcium 8.9 8.5 - 10.5 mg/dL [facility] Estimated GFR 38 (L) >=60 [facility] Comment: This estimated GFR (eGFR) [...] the following links into your internet browser. [email or web address] Specimen Anatomical Collection Method Collection Time Receive d Time (Source) Location / / Volume Laterality Blood specimen 07/11/2016 7:35 AM 017 7:40 (specimen) EST AM EST Resulting Agency Comment Spec In Lab Celso Casiano MD CHEMISTRY ORDERABLES Performing Organization Address City/[facility] Code Phon e Number [address] ABORH Recheck Status (07/11/2016 4:57 AM EST) [facility] [employer] Method Time Signature ABORH Type Completed [facility] LABORATORY Specimen Anatomical Collection Method Collection Time Receive d Time (Source) Location / / Volume Laterality Blood specimen 07/11/2016 4:57 AM 017 5:03 (specimen) EST AM EST Resulting Agency Comment Spec In Lab Celso Casiano MD BLOOD BANK ORDERABLES Performing Organization Address City/[facility] [place] [address] Antibody screen (07/11/2016 4:57 AM EST) [facility] [employer] Method Time Signature Ab Screen Negative [facility] LABORATORY Expires at 07/14/2016 [facility] [id number] on: [facility] Specimen Anatomical Collection Method Collection Time Receive d Time (Source) Location / / Volume Laterality Blood specimen 07/11/2016 4:57 AM 017 5:03 (specimen) EST AM EST Resulting Agency Comment Spec In Lab Celso Casiano MD BLOOD BANK ORDERABLES Performing Organization Address City/[facility]/[place] [address] ABO/Rh Typing (07/11/2016 4:57 AM EST) athologist Signature ABORh Type A Neg [facility] LABORATORY Specimen Anatomical Collection Method Collection Time Receive d Time (Source) Location / / Volume Laterality Blood specimen 07/11/2016 4:57 AM 017 5:03 (specimen) EST AM EST Resulting Agency Comment Spec In Lab Celso Casiano MD BLOOD BANK ORDERABLES Performing Organization Address City/[facility]/[place] [address] POCT Glucose (07/11/2016 3:30 AM EST) athologist Signature POC Glucose 190 65 - 199 [facility] mg/dL [facility] Comment: Supplemental ranges: <140 mg/dL before meals <180 mg/dL all other times of the day Specimen Anatomical Collection Method Collection Time Receive d Time (Source) Location / / Volume Laterality Blood specimen 07/11/2016 3:30 AM 017 3:30 (specimen) EST AM EST Celso Casiano MD POINT OF CARE TEST ORDERABLE S Performing Organization Address City/[facility]/[place] [address] (ABNORMAL) POCT Glucose (07/11/2016 12:53 AM EST) athologist Signature POC Glucose 252 (H) 65 - 199 [facility] mg/dL [facility] Comment: Supplemental ranges: <140 mg/dL before meals <180 mg/dL all other times of the day Specimen Anatomical Collection Method Collection Time Receive d Time (Source) Location / / Volume Laterality Blood specimen 07/11/2016 12:53 7 (specimen) AM EST 12:53 AM EST Celso Casiano MD POINT OF CARE TEST ORDERABLE S Performing Organization Address City/State/[place] [address] (ABNORMAL) POCT Glucose (07/10/2016 11:04 PM EST) P athologist Signature POC Glucose 258 (H) 65 - 199 [facility] mg/dL [facility] Comment: Supplemental ranges: <140 mg/dL before meals <180 mg/dL all other times of the day Specimen Anatomical Collection Method Collection Time Receive d Time (Source) Location / / Volume Laterality Blood specimen 07/10/2016 11:04 7 (specimen) PM EST 11:04 PM EST Celso Casiano MD POINT OF CARE TEST ORDERABLE S Performing Organization Address City/[facility]/[place] [address] (ABNORMAL) POCT Glucose (07/10/2016 8:54 PM EST) P athologist Signature POC Glucose 257 (H) 65 - 199 [facility] mg/dL [facility] Comment: Supplemental ranges: <140 mg/dL before meals <180 mg/dL all other times of the day Specimen Anatomical Collection Method Collection Time Receive d Time (Source) Location / / Volume Laterality Blood specimen 07/10/2016 8:54 PM 017 8:54 (specimen) EST PM EST Celso Casiano MD POINT OF CARE TEST ORDERABLE S Performing Organization Address City/State/ZIP Code Phon e Number [address] (ABNORMAL) Uric acid (07/10/2016 5:52 PM EST) P athologist Signature Uric Acid 13.3 (H) 3.5 - 8.5 [facility] mg/dL [facility]OR[facility]ORY Specimen Anatomical Collection Method Collection Time Receive d Time (Source) Location / / Volume Laterality Blood specimen 07/10/2016 5:52 PM 017 5:58 (specimen) EST PM EST Resulting Agency Comment Spec In Lab Celso Casiano MD CHEMISTRY ORDERABLES Performing Organization Address City/[facility]/[place] [address] (ABNORMAL) CK (07/10/2016 5:52 PM EST) P athologist Signature CK, Total 203 (H) 0 - 200 [facility] unit/L [facility] LABORATORY Specimen Anatomical Collection Method Collection Time Receive d Time (Source) Location / / Volume Laterality Blood specimen 07/10/2016 5:52 PM 017 5:58 (specimen) EST PM EST Resulting Agency Comment Spec In Lab Celso Casiano MD CHEMISTRY ORDERABLES Performing Organization Address City/[facility]/[place] [address] POCT Glucose (07/10/2016 3:48 PM EST) P athologist Signature POC Glucose 171 65 - 199 [facility] mg/dL [facility] Comment: Supplemental ranges: <140 mg/dL before meals <180 mg/dL all other times of the day Specimen Anatomical Collection Method Collection Time Receive d Time (Source) Location / / Volume Laterality Blood specimen 07/10/2016 3:48 PM 017 3:48 (specimen) EST PM EST Celso Casiano MD POINT OF CARE TEST ORDERABLE S Performing Organization Address City/[facility]/[place] [address] Crystal Exam Body Fluid Synovial Fluid (07/10/2016 2:40 PM EST) Patholo gist Method Time Signature Crystal BF Synovial fl [facility] LABORATORY Crystal BF See Comment [facility] LABOR[facility]ORY Comment: Few crystals seen, consistent w ith uric acid. Specimen Anatomical Collection Method Collection Time Receive d Time (Source) Location / / Volume Laterality Synovial fluid 07/10/2016 2:40 PM 017 2:48 specimen EST PM EST (specimen) Resulting Agency Comment Spec In Lab Celso Casiano MD BODY FLUIDS AND STOOLS ORDER HOSEA Performing Organization Address City/[facility]/ZIP Code Phon e Number [address] Cell Count Body Fluid Synovial Fluid (07/10/2016 2:40 PM EST) [facility] Method Time Signature Spec Type BF Synov Fl [facility] Color BF Yellow [facility] Appearance BF Slightly [facility] LABORATORY Nucl Cell BF 17,010 /mcl [place] LABORATORY Comment: Guidelines listed below apply to all Bod y Fluids EXCEPT Bronchial Lavage Specimens (BAL specimens). Differentials on BAL specimens are perfo rmed by the Cytology laboratory section. Differential Guidelines: If Nucleated Cell Count equals zero, No Scan or Differential is performed. If Nucleated Cell Count equals 1-5, Smea r is scanned but no results are reported unless abnormalities are seen. If Nucleated Cell Count equals [address], Differential is reported. Nucleated Cell Count Results are correla manuel with body fluid type and clinical condition. Neut Absolute BF 16,330 /mcl [facility]ORATORY Neutrophil BF 96 % [facility] Lymphocyte BF 1 % [facility] Macrophage BF 3 % [facility] Tot Diff Ct BF 200 Cells [facility] Specimen Anatomical Collection Method Collection Time Receive d Time (Source) Location / / Volume Laterality Synovial fluid 07/10/2016 2:40 PM 017 2:48 specimen EST PM EST (specimen) Resulting Agency Comment Spec In Lab Celso Casiano MD BODY FLUIDS AND STOOLS ORDER HOSEA Performing Organization Address City/[facility]/ZIP Code Phon e Number [address] Body fluid culture Synovial Fluid (07/10/2016 2:40 PM EST) Component Value Ref Test Analysis Performed At [facility] [employer] Range Method Time Signature Body Fluid No growth [facility] LABORATORY Gram Stain Cytocentrifuge Gram Stain performed FIONA White Blood Cells seen [facility] CK No microorganisms seen. [facility] LABORATORY Specimen Anatomical Collection Method Collection Time Receive d Time (Source) Location / / Volume Laterality Synovial fluid 07/10/2016 2:40 PM 017 2:58 specimen EST PM EST (specimen) Resulting Agency Comment Spec In Lab Celso Casiano MD MICROBIOLOGY - GENERAL ORDER HOSEA Performing Organization Address City/State/ZIP Code Phon e Number [address] POCT Glucose (07/10/2016 12:21 PM EST) P athologist Signature POC Glucose 193 65 - 199 [facility] mg/dL [facility]ORY Comment: Supplemental ranges: <140 mg/dL before meals <180 mg/dL all other times of the day Specimen Anatomical Collection Method Collection Time Receive d Time (Source) Location / / Volume Laterality Blood specimen 07/10/2016 12:21 7 (specimen) PM EST 12:21 PM EST Celso Casiano MD POINT OF CARE TEST ORDERABLE S Performing Organization Address City/State/[place] [address] XR Knee 1-2 Views Bilat (Generic) (07/10/2016 12:02 PM EST) Anatomical Region Laterality Modality Knee Bilateral Digital Radiography Specimen (Source) Anatomical Location Collection Method / Collectio n Time Received Time / Laterality Volume Impressions 07/10/2016 12:21 PM EST Bilateral knee joint effusions. No fracture or dislocation. Mild osteoarthritis bilateral knees. Narrative 07/10/2016 12:21 PM EST EXAMINATION: XR KNEE 1-2 VIEWS BILAT (GENERIC) CLINICAL HISTORY: 56M w bilateral swolle n and painful knees TECHNIQUE: AP and crosstable lateral francis ateral knees COMPARISON: None FINDINGS: Moderate size suprapatellar joint effusi ons are noted bilaterally. No fracture or dislocation. Examination demonstrates degenerative ch anges bilaterally characterized by narrowing of the medial femoral tibial c ompartment and small scattered osteophytes. There is also narrowing of the patellofemoral joint with small osteophytes on the posterior aspect of p atella and enthesophytes on the anterior aspect of patella. Procedure Note Lilibeth Meyers MD - 7 EXAMINATION: XR KNEE 1-2 VIEWS BILAT (GE NERIC) CLINICAL HISTORY: 56M w bilateral swolle n and painful knees TECHNIQUE: AP and crosstable lateral francis ateral knees COMPARISON: None FINDINGS: Moderate size suprapatellar joint effusi ons are noted bilaterally. No fracture or dislocation. Examination demonstrates degenerative ch anges bilaterally characterized by narrowing of the medial femoral tibial c ompartment and small scattered osteophytes. There is also narrowing of the patellofemoral joint with small osteophytes on the posterior aspect of p atella and enthesophytes on the anterior aspect of patella. IMPRESSION Bilateral knee joint effusions. No fract ure or dislocation. Mild osteoarthritis bilateral knees. Celso Casiano MD IMG DX ORDERABLES Scan, Peripheral Blood (07/10/2016 10:00 AM EST) Patholo gist Method Time Signature Plat Estimate Decreased [facility] RBC Morphology Abnormal [facility] Microcytes 1-5 /HPF [facility] Specimen Anatomical Collection Method Collection Time Receive d Time (Source) Location / / Volume Laterality Blood specimen 07/10/2016 10:00 7 (specimen) AM EST 10:15 AM EST Resulting Agency Comment Spec In Lab Derrell Malone MD HEMATOLOGY ORDERABLES Performing Organization Address City/State/[place] [address] (ABNORMAL) Hepatic Function Panel (07/10/2016 10:00 AM EST) P athologist Signature Total Protein 7.5 6.1 - 8.0 [facility] Albumin 3.1 (L) 3.2 - 5.2 [facility] gm/dL [facility]OR[facility] AST 25 0 - 39 [facility] JUVENT[facility] unit/L [facility] ALT 18 0 - 55 [facility] Alk Phos 101 40 - 120 [facility] unit/L [facility]ORATORY Total 0.5 0.2 - 1.3 [facility] Bilirubin mg/dL [facility]OR[facility] Bili, Direct 0.2 0.0 - 0.3 [facility] mg/dL [facility]OR[facility] Specimen Anatomical Collection Method Collection Time Receive d Time (Source) Location / / Volume Laterality Blood specimen Venous Draw / 07/10/2016 10:00 07/10/19 17 (specimen) Unknown AM EST 10:15 AM EST Resulting Agency Comment Spec In Lab Celso Casiano MD CHEMISTRY ORDERABLES Performing Organization Address City/State/[place] [address] (ABNORMAL) Differential, Automated (07/10/2016 10:00 AM EST) [facility] Method Time Signature Neutrophils % 88.8 % [facility] LABORATORY Neutr Abs (ANC) 8.45 (H) 1.70 - [facility] 6.10 [facility] x10(3)/[facility] LABORATORY Lymphocytes % 2.7 % [facility] Lymphocytes Abs 0.3 (L) 0.9 - 3.2 [facility] x10(3)/[facility] LABORATORY Monocytes % 6.7 % [facility] Monocyte Abs 0.6 0.3 - 0.9 [facility] x10(3)/[facility] LABORATORY Eosinophils % 0.1 % [facility] Eosinophils Abs 0.0 0.0 - 0.4 [facility] x10(3)/[facility] LABORATORY Basophils % 0.2 % [facility] Basophils Abs 0.0 0.0 - 0.1 [facility] x10(3)/[facility] LABORATORY Immature Gran % 1.50 % [facility] Comment: Immature granulocytes(IG's)percentage an d absolute count will include metamyelocytes, myelocytes, and promyelo cytes. Blood smears from CBCs yielding IG's will be scanned manually for concor dance. If this scan disagrees with the automated IG or if promyelocytes are not ed, a manual differential will be performed. Tamara Gran Abs 0.14 (H) 0.00 - 0.04 x10(3)/[facility] LABORATORY Specimen Anatomical Collection Method Collection Time Receive d Time (Source) Location / / Volume Laterality Blood specimen 07/10/2016 10:00 7 (specimen) AM EST 10:15 AM EST Resulting Agency Comment Spec In Lab Celso Casiano MD HEMATOLOGY ORDERABLES Performing Organization Address City/State/[place] [address] (ABNORMAL) Hemogram (07/10/2016 10:00 AM EST) Analysis Performed At Patho logist Time Signature WBC 9.5 4.0 - 9.5 [facility] x10(3)/[facility] LABORATORY RBC 2.71 (L) 4.58 - [facility] 5.54 [facility] x10(6)/[facility] LABORATORY Hemoglobin 7.7 (L) 13.7 - [facility] 16.5 gm/dL [facility] Hematocrit 22.9 (L) 40.5 - [facility] 48.5 % [facility] LABORATORY MCV 84.5 82.9 - [facility] 93.1 [facility] LABORATORY MCH 28.4 27.5 - [facility] 32.1 pg [facility] LABORATORY MCHC 33.6 32.0 - [facility] 35.7 gm/dL [facility]OR[facility]ORY Platelets 117 (L) 145 - 357 [facility] x10(3)/[facility] LABORATORY RDWSD 51.2 (H) 36.0 - [facility] 45.0 [facility] LABORATORY RDWCV 16.4 (H) 11.4 - [facility] 13.8 % [facility] LABORATORY MPV 11.1 7.6 - 12.9 [facility] LABORATORY nRBC % Auto 0.0 % [facility] nRBC Abs Auto 0.000 0.000 - [facility] 0.000 [facility] x10(3)/[facility] LABORATORY Specimen Anatomical Collection Method Collection Time Receive d Time (Source) Location / / Volume Laterality Blood specimen 07/10/2016 10:00 7 (specimen) AM EST 10:15 AM EST Resulting Agency Comment Spec In Lab Celso aCsiano MD HEMATOLOGY ORDERABLES Performing Organization Address City/State/[place] [address] Peripheral Smear Review (07/10/2016 10:00 AM EST) [facility] gist Method Time Signature Periph Smear See Comment FIONA JUVENTINO [facility] LABORATORY Comment: When completed by the Pathologist, repor cain [id number] will display under Hematopathology Reports. Specimen Anatomical Collection Method Collection Time Receive d Time (Source) Location / / Volume Laterality Blood specimen 07/10/2016 10:00 7 (specimen) AM EST 10:15 AM EST Resulting Agency Comment Spec In Lab Celso Casiano MD HEMATOLOGY ORDERABLES Performing Organization Address City/[facility]/ZIP Code Phon e Number [address] Blood culture (07/10/2016 10:00 AM EST) [facility] Method Time Signature Blood Culture No growth FIONA JAUREGUI at 5 days. [facility] LABORATORY Specimen Anatomical Collection Method Collection Time Receive d Time (Source) Location / / Volume Laterality Blood specimen 07/10/2016 10:00 7 (specimen) AM EST 10:24 AM EST Resulting Agency Comment Spec In Lab Celso Casiano MD MICROBIOLOGY - BLOOD ORDERAB LES Performing Organization Address City/[facility]/ZIP Code Phon e Number [address] TSH (07/10/2016 10:00 AM EST) P athologist Signature TSH 1.08 0.27 - 4.20 [facility] JUVENTINO mcIU/mL [facility] LABORATORY Specimen Anatomical Collection Method Collection Time Receive d Time (Source) Location / / Volume Laterality Blood specimen 07/10/2016 10:00 7 (specimen) AM EST 10:15 AM EST Resulting Agency Comment Spec In Lab Celso Casiano MD CHEMISTRY ORDERABLES Performing Organization Address City/[facility]/ZIP Code Phon e Number [address] Phosphorus (07/10/2016 10:00 AM EST) P athologist Signature Phosphorus 3.7 2.5 - 4.5 FIONA JAUREGUI mg/dL [facility] LABORATORY Specimen Anatomical Collection Method Collection Time Receive d Time (Source) Location / / Volume Laterality Blood specimen 07/10/2016 10:00 7 (specimen) AM EST 10:15 AM EST Resulting Agency Comment Spec In Lab Celso Casiano MD CHEMISTRY ORDERABLES Performing Organization Address City/[facility]/ZIP Code Phon e Number [address] Magnesium (07/10/2016 10:00 AM EST) P athologist Signature Magnesium 0.86 0.69 - 1.07 [facility]L [facility] Specimen Anatomical Collection Method Collection Time Receive d Time (Source) Location / / Volume Laterality Blood specimen 07/10/2016 10:00 7 (specimen) AM EST 10:15 AM EST Resulting Agency Comment Spec In Lab Celso Casiano MD CHEMISTRY ORDERABLES Performing Organization Address City/[facility]/ZIP Code Phon e Number [address] (ABNORMAL) CK (07/10/2016 10:00 AM EST) P athologist Signature CK, Total 242 (H) 0 - 200 [facility] unit/L [facility] LABORATORY Specimen Anatomical Collection Method Collection Time Receive d Time (Source) Location / / Volume Laterality Blood specimen 07/10/2016 10:00 7 (specimen) AM EST 10:15 AM EST Resulting Agency Comment Spec In Lab Celso Casiano MD CHEMISTRY ORDERABLES Performing Organization Address City/[facility]/[place] [address] Smear Review Report (07/10/2016 9:00 AM EST) Component Value Ref Test Analysis Performed At Patholo gist Range Method Time Signature Smear Review [id number] ?Location: 5WST; 0507; A FIONA JAUREGUI The signing pathologist has (i) examined the relevant preparation(s) for the [facility] specimen(s) and (ii) rendered or confirmed the diagnosis(es) . HOSPITAL LABORATORY . ? Sm ear Review DIAGNOSIS Anemia, thrombocytopenia. ?No diagnostic morphologic features for hemolysis. Electronically signed by: ??Calos Cotto MD Verified: ??07/10/2016 ?Hematopathologist DISCUSSION Although the peripheral blood smear findings do not sugges t the presence of significant intra- or extra vascular hemolysis, suggest further evaluation with LDH, bilirubin, reticulocyt e count, haptoglobin, DIC screen and direct antiglobulin test (if not already done) for definitive evaluation if RBC hemolysis is suspected clinically. See e-DH: LAB and PATHOLOGY, Lab Results, CBC and manual dif ferential. ADDITIONAL STUDIES Not performed CLINICAL INFORMATION Anemia, thrombocytopenia , ? hemolysis. Specimen (Source) Anatomical Collection Method Collection Time Re ceived Time Location / / Volume Laterality 07/10/2016 9:00 AM EST Derrell Malone MD PATHOLOGY/CYTOLOGY ORDERABLE S Performing Organization Address City/[facility]/ZIP Code Phon e Number [address] POCT Glucose (07/10/2016 7:26 AM EST) athologist Signature POC Glucose 136 65 - 199 [facility] J[place] mg/dL [facility] LABOR[facility]ORY Comment: Supplemental ranges: <140 mg/dL before meals <180 mg/dL all other times of the day Specimen Anatomical Collection Method Collection Time Receive d Time (Source) Location / / Volume Laterality Blood specimen 07/10/2016 7:26 AM 017 7:26 (specimen) EST AM EST Celso Casiano MD POINT OF CARE TEST ORDERABLE S Performing Organization Address City/[facility]/ZIP Code Phon e Number [address] POCT Glucose (07/10/2016 3:57 AM EST) athologist Signature POC Glucose 137 65 - 199 FIONA JAUREGUI mg/dL [facility] LABORATORY Comment: Supplemental ranges: <140 mg/dL before meals <180 mg/dL all other times of the day Specimen Anatomical Collection Method Collection Time Receive d Time (Source) Location / / Volume Laterality Blood specimen 07/10/2016 3:57 AM 017 3:57 (specimen) EST AM EST Celso Casiano MD POINT OF CARE TEST ORDERABLE S Performing Organization Address City/[facility]/[place] [address] Magnesium (07/10/2016 12:40 AM EST) P athologist Signature Magnesium 0.78 0.69 - 1.07 [facility] [place] mmol/L [facility] LABORATORY Specimen Anatomical Collection Method Collection Time Receive d Time (Source) Location / / Volume Laterality Blood specimen Venous Draw / 07/10/2016 12:40 07/10/19 17 (specimen) Unknown AM EST 12:59 AM EST Resulting Agency Comment Spec In Lab Celso Casiano MD CHEMISTRY ORDERABLES Performing Organization Address City/[facility]/[place] [address] Blood culture (07/10/2016 12:40 AM EST) Patholo gist Method Time Signature Blood Culture No growth FIONA JAUREGUI at 5 days. [facility] LABORATORY Specimen Anatomical Collection Method Collection Time Receive d Time (Source) Location / / Volume Laterality Blood specimen 07/10/2016 12:40 7 1:35 (specimen) AM EST AM EST Comment: R ARM Resulting Agency Comment Spec In Lab Celso Casiano MD MICROBIOLOGY - BLOOD ORDERAB LES Performing Organization Address City/[facility]/[place] [address] (ABNORMAL) Basic Metabolic Panel (non-fasting) (07/10/2016 12:40 AM EST) P athologist Signature Glucose Lvl 117 65 - 199 FIONA JAUREGUI mg/dL [facility] LABOR[facility]ORY Comment: Diabetes: >=200 mg/dL plus symp toms BUN 53 (H) 10 - 20 mg/dL [facility] LABORATORY Creatinine 1.98 (H) 0.80 - 1.50 mg/dL [facility] LABORATORY Comment: Please note that the pediatric reference intervals supplied above were not validated at [facility]. Results from pediatri c patients should be interpreted in conjunction to the patient's age, height and muscle mass. Sodium 136 135 - 145 mmol/L [facility] LABOR[facility]ORY Potassium 4.4 3.5 - 5.0 mmol/L [facility] LABOR[facility]ORY Comment: Please note: ??Patients with WBC >100,00 0 may have falsely elevated Potassium levels. ??For accurate Potassium quantif ication in these patients send serum separator tube (gold top) for subsequent determinations. ??Contact the Clinical Chemistry Laboratory if there are any qu estions. Chloride 99 98 - 107 mmol/L [facility] CO2 19 (L) 22 - 31 mmol/L [facility] Anion Gap 18 (H) 5 - 15 mmol/L [facility] Calcium 8.7 8.5 - 10.5 mg/dL [facility]OR[facility] Estimated GFR 35 (L) >=60 [facility] Comment: This estimated GFR (eGFR) [...] the following links into your internet browser. [email or web address] Specimen Anatomical Collection Method Collection Time Receive d Time (Source) Location / / Volume Laterality Blood specimen 07/10/2016 12:40 7 (specimen) AM EST 12:59 AM EST Resulting Agency Comment Spec In Lab Celso Casiano MD CHEMISTRY ORDERABLES Performing Organization Address City/State/[place] [address] [facility] [address]ORY Drive (ABNORMAL) Differential, Automated (07/10/2016 12:40 AM EST) [facility] Method Time Signature Neutrophils % 93.9 % [facility]OR[facility]ORY Neutr Abs (ANC) 10.10 (H) 1.70 - [facility] 6.10 [facility] x10(3)/[facility] LABORATORY Lymphocytes % 1.3 % [facility]ORY Lymphocytes Abs 0.1 (L) 0.9 - 3.2 [facility] x10(3)/[facility] LABORATORY Monocytes % 3.2 % [facility] Monocyte Abs 0.3 0.3 - 0.9 [facility] x10(3)/[facility] LABORATORY Eosinophils % 0.0 % [facility] Eosinophils Abs 0.0 0.0 - 0.4 [facility] x10(3)/[facility] LABORATORY Basophils % 0.2 % [facility] Basophils Abs 0.0 0.0 - 0.1 [facility] x10(3)/[facility] LABORATORY Immature Gran % 1.40 % [facility] Comment: Immature granulocytes(IG's)percentage an d absolute count will include metamyelocytes, myelocytes, and promyelo cytes. Blood smears from CBCs yielding IG's will be scanned manually for concor dance. If this scan disagrees with the automated IG or if promyelocytes are not ed, a manual differential will be performed. Tamara Gran Abs 0.15 (H) 0.00 - 0.04 x10(3)/[facility] LABORATORY Specimen Anatomical Collection Method Collection Time Receive d Time (Source) Location / / Volume Laterality Blood specimen 07/10/2016 12:40 7 (specimen) AM EST 12:59 AM EST Resulting Agency Comment Spec In Lab Celso Casiano MD HEMATOLOGY ORDERABLES Performing Organization Address City/State/ZIP Code Phon e Number [address] (ABNORMAL) Hemogram (07/10/2016 12:40 AM EST) Analysis Performed At Patho logist Time Signature WBC 10.8 (H) 4.0 - 9.5 [facility] x10(3)/[facility] LABORATORY RBC 2.99 (L) 4.58 - FIONA JUVENTINO 5.54 [facility] x10(6)/[facility] LABORATORY Hemoglobin 8.4 (L) 13.7 - [facility] 16.5 gm/dL [facility] LABORATORY Hematocrit 25.7 (L) 40.5 - [facility]A [facility]OCK 48.5 % [facility]ORATORY MCV 86.0 82.9 - [facility] 93.1 [facility] LABORATORY MCH 28.1 27.5 - FIONA JUVENTINO 32.1 pg [facility] LABORATORY MCHC 32.7 32.0 - FIONA JUVENTINO 35.7 gm/dL [facility] LABORATORY Platelets 114 (L) 145 - 357 [facility] x10(3)/[facility] LABORATORY RDWSD 52.0 (H) 36.0 - [facility] 45.0 [facility] LABORATORY RDWCV 16.6 (H) 11.4 - [facility] 13.8 % [facility] LABORATORY MPV 11.5 7.6 - 12.9 [facility] LABORATORY nRBC % Auto 0.0 % [facility]ORY nRBC Abs Auto 0.000 0.000 - [facility] 0.000 [facility] x10(3)/[facility] LABORATORY Specimen Anatomical Collection Method Collection Time Receive d Time (Source) Location / / Volume Laterality Blood specimen 07/10/2016 12:40 7 (specimen) AM EST 12:59 AM EST Resulting Agency Comment Spec In Lab Celso Casiano MD HEMATOLOGY ORDERABLES Performing Organization Address City/State/[place] [address] POCT Glucose (07/10/2016 12:13 AM EST) P athologist Signature POC Glucose 118 65 - 199 [facility] mg/dL [facility] LABORATORY Comment: Supplemental ranges: <140 mg/dL before meals <180 mg/dL all other times of the day Specimen Anatomical Collection Method Collection Time Receive d Time (Source) Location / / Volume Laterality Blood specimen 07/10/2016 12:13 7 (specimen) AM EST 12:13 AM EST Celso Casiano MD POINT OF CARE TEST ORDERABLE S Performing Organization Address City/[facility]/[place] [address] (ABNORMAL) Urine culture (07/09/2016 10:25 PM EST) Component Value Ref Test Analysis Performed At [facility] Range Method Time Signature Urine Culture 10,000-49,000 cfu/ml Coagula se Negative Staph, not S. saprophyticus [facility] Susceptibility testing not routinely performed for Coagula se Negative JUVENTINO Staphylococcus species and other Gram Positive organisms f rom urine. [facility] () [facility] LABORATORY Organism Coagulase FIONA Negative Staph, JUVENTINO not S. [facility] saprophyticus () [facility] LABORATORY Specimen Anatomical Collection Method Collection Time Receive d Time (Source) Location / / Volume Laterality Urine specimen 07/09/2016 10:25 7 (specimen) PM EST 11:06 PM EST Resulting Agency Comment Spec In Lab Celso Casiano MD MICROBIOLOGY - GENERAL ORDER HOSEA Performing Organization Address City/[facility]/[place] [address] Urine Hold (07/09/2016 10:25 PM EST) P athologist Signature Urine Hold Sample in [facility]. [facility] LABORATORY Specimen Anatomical Collection Method Collection Time Receive d Time (Source) Location / / Volume Laterality Urine specimen Urine / Unknown 07/09/2016 10:25 2016 (specimen) PM EST 10:35 PM EST Celso Casiano MD URINE ORDERABLES Performing Organization Address City/[facility]/[place] [address] (ABNORMAL) Urinalysis with reflex Culture (07/09/2016 10:25 PM EST) [facility] Method Time Signature Glucose UA Negative Negative [facility] Protein UA Negative Negative [facility] Bilirubin UA Negative Negative [facility] mg/dL [facility] Comment: Clinical correlation required for positi ve Urine Bilirubin results as false positive may occur with some drugs and d rug related products. If a false positive is suspected a serum total bili sykes should be considered if clinically indicated. Urobilinogen UA Normal Normal mg/dL [facility] LABORATORY pH UA 5.0 5.0 - 8.0 [facility] LABORATORY Blood UA Negative Negative mg/dL [facility] Ketones UA Negative Negative mg/dL [facility] Nitrite UA Negative Negative [facility] Leukocytes UA Large (A) Negative [facility] LABORATORY Appearance UA Clear Clear [facility] LABOR[facility] Spec [place] UA 1.017 1.002 - 1.030 [facility] LABORATORY Color UA Yellow Yellow [facility] RBC UA 3 0 - 3 /HPF [facility] WBC UA 41 (H) 0 - 3 /HPF [facility] Squam Epith UA <1 <=4 /HPF [facility] Hyaline Cast UA 1 0 - 2 /LPF [facility] LABOR[facility]ORY Culture Reflexed Yes [facility] LABOR[facility]ORY Specimen Anatomical Collection Method Collection Time Receive d Time (Source) Location / / Volume Laterality Urine specimen 07/09/2016 10:25 7 (specimen) PM EST 10:34 PM EST Resulting Agency Comment Spec In Lab Celso Casiano MD URINE ORDERABLES Performing Organization Address City/State/[place] [address] POCT Glucose (07/09/2016 8:43 PM EST) P athologist Signature POC Glucose 99 65 - 199 [facility] mg/dL [facility] LABOR[facility]ORY Comment: Supplemental ranges: <140 mg/dL before meals <180 mg/dL all other times of the day Specimen Anatomical Collection Method Collection Time Receive d Time (Source) Location / / Volume Laterality Blood specimen 07/09/2016 8:43 PM 017 8:43 (specimen) EST PM EST Margi Caicedo MD POINT OF CARE TEST ORDERABLE S Performing Organization Address City/[facility]/[place] [address] Rapid Respiratory Virus Antigen Panel Nasopharyngeal Swab (07/09/2016 6:02 PM EST) Component Value Ref Test Analysis Performed At [facility] Method Time Signature Rapid Virus DFA Negative for Adenovirus Antigen [facility] Antigen DFA Negative for Human Metapneumovirus Antigen CARTERET Stain DFA Negative for Influenza Virus Type A Antigen [facility] DFA Negative for Influenza Virus Type B Antigen [facility] DFA Negative for Parainfluenza Virus Type 1 Antigen LABORATORY DFA Negative for Parainfluenza Virus Type 2 Antigen DFA Negative for Parainfluenza Virus Type 3 Antigen DFA Negative for Respiratory Syncytial Virus Antigen Specimen (Source) Anatomical Collection Method Collection Time Re ceived Time Location / / Volume Laterality Nasopharyngeal swab 07/09/2016 6:02 07/09 (specimen) PM EST 6:28 PM EST Resulting Agency Comment Spec In Lab Celso Casiano MD MICROBIOLOGY - GENERAL ORDER HOSEA Performing Organization Address City/State/[place] [address] Rapid Influenza A/B PCR (07/09/2016 6:02 PM EST) [facility] Influenza A Not Detected Not Detected [facility] PCR [facility] LABORATORY Influenza B Not Detected Not Detected [facility] PCR [facility] LABOR[facility]ORY Resp PCR [employer] Swab [facility] Source [facility] LABORATORY Specimen (Source) Anatomical Collection Method Collection Time Re ceived Time Location / / Volume Laterality Nasopharyngeal swab 07/09/2016 6:02 07/09 (specimen) PM EST 6:28 PM EST Resulting Agency Comment Spec In Lab Christian Graham MD MICROBIOLOGY - GENERAL ORDER HOSEA Performing Organization Address City/State/ZIP Code Phon e Number [address] (ABNORMAL) Differential, Automated (07/09/2016 5:51 PM EST) [facility] Method Time Signature Neutrophils % 82.6 % [facility] LABORATORY Neutr Abs (ANC) 5.39 1.70 - [facility] 6.10 [facility] x10(3)/[facility] LABORATORY Lymphocytes % 9.6 % [facility] LABORATORY Lymphocytes Abs 0.6 (L) 0.9 - 3.2 [facility] x10(3)/[facility] LABORATORY Monocytes % 5.5 % [facility] LABORATORY Monocyte Abs 0.4 0.3 - 0.9 [facility] x10(3)/[facility] LABORATORY Eosinophils % 1.7 % [facility] LABORATORY Eosinophils Abs 0.1 0.0 - 0.4 [facility] x10(3)/[facility] LABORATORY Basophils % 0.3 % [facility] LABORATORY Basophils Abs 0.0 0.0 - 0.1 [facility] x10(3)/[facility] LABORATORY Immature Gran % 0.30 % [facility]ORY Comment: Immature granulocytes(IG's)percentage an d absolute count will include metamyelocytes, myelocytes, and promyelo cytes. Blood smears from CBCs yielding IG's will be scanned manually for concor dance. If this scan disagrees with the automated IG or if promyelocytes are not ed, a manual differential will be performed. Tamara Gran Abs 0.02 0.00 - 0.04 x10(3)/[facility] LABORATORY Specimen Anatomical Collection Method Collection Time Receive d Time (Source) Location / / Volume Laterality Blood specimen Venous Draw / 07/09/2016 5:51 PM 2016 6:03 (specimen) Unknown EST PM EST Resulting Agency Comment Spec In Lab Celso Casiano MD HEMATOLOGY ORDERABLES Performing Organization Address City/State/[place] [address] (ABNORMAL) Hemogram (07/09/2016 5:51 PM EST) Analysis Performed At Patho logist Time Signature WBC 6.5 4.0 - 9.5 [facility] x10(3)/[facility] LABORATORY RBC 3.45 (L) 4.58 - [facility] 5.54 [facility] x10(6)/[facility] LABORATORY Hemoglobin 9.8 (L) 13.7 - [place] 16.5 gm/dL [facility] LABORATORY Hematocrit 29.6 (L) 40.5 - [place] 48.5 % [facility] LABORATORY MCV 85.8 82.9 - [place] 93.1 [facility] LABORATORY MCH 28.4 27.5 - [place] 32.1 pg [facility] LABORATORY MCHC 33.1 32.0 - [place] 35.7 gm/dL [facility] LABORATORY Platelets 147 145 - 357 [facility] x10(3)/[facility] LABORATORY RDWSD 52.4 (H) 36.0 - [place] 45.0 [facility] LABORATORY RDWCV 16.7 (H) 11.4 - [place] 13.8 % [facility] LABORATORY MPV 12.0 7.6 - 12.9 [place] [facility] LABORATORY nRBC % Auto 0.0 % [facility] LABORATORY nRBC Abs Auto 0.000 0.000 - [place] 0.000 [facility] x10(3)/[facility] LABORATORY Specimen Anatomical Collection Method Collection Time Receive d Time (Source) Location / / Volume Laterality Blood specimen Venous Draw / 07/09/2016 5:51 PM 2016 6:03 (specimen) Unknown EST PM EST Resulting Agency Comment Spec In Lab Celso Casiano MD HEMATOLOGY ORDERABLES Performing Organization Address City/State/[place] [address] (ABNORMAL) Hepatic Function Panel (07/09/2016 5:51 PM EST) P athologist Signature Total Protein 8.9 (H) 6.1 - 8.0 [place] [place] gm/dL [facility] LABORATORY Albumin 3.6 3.2 - 5.2 [facility] [place] gm/dL [facility] LABORATORY AST 30 0 - 39 [place] [place] unit/L [facility] LABORATORY ALT 21 0 - 55 [facility] [place] unit/L [facility] LABORATORY Alk Phos 103 40 - 120 [facility] [place] unit/L [facility] LABORATORY Total 0.5 0.2 - 1.3 [place] Bilirubin mg/dL [facility] LABORATORY Bili, Direct 0.2 0.0 - 0.3 [facility] [place] mg/dL [facility] LABORATORY Specimen Anatomical Collection Method Collection Time Receive d Time (Source) Location / / Volume Laterality Blood specimen Venous Draw / 07/09/2016 5:51 PM 2016 6:10 (specimen) Unknown EST PM EST Resulting Agency Comment Spec In Lab Celso Casiano MD CHEMISTRY ORDERABLES Performing Organization Address City/[facility]/ZIP [facility] Phon e Number [address] (ABNORMAL) CK (07/09/2016 5:51 PM EST) athologist Signature CK, Total 405 (H) 0 - 200 [facility] unit/L [facility] LABORATORY Specimen Anatomical Collection Method Collection Time Receive d Time (Source) Location / / Volume Laterality Blood specimen Venous Draw / 07/09/2016 5:51 PM 2016 6:10 (specimen) Unknown EST PM EST Resulting Agency Comment Spec In Lab Celso Casiano MD CHEMISTRY ORDERABLES Performing Organization Address City/[facility] [place] [address] (ABNORMAL) Basic Metabolic Panel (non-fasting) (07/09/2016 5:51 PM EST) athologist Signature Glucose Lvl 53 65 - 199 [facility] (Critical) mg/dL [facility] LABORATORY Comment: Result rechecked. Called by: flor, Read back by: devan phelan, Date/Time:07/09/16 20:31. Diabetes: >=200 mg/dL plus symptoms BUN 57 (H) 10 - 20 mg/dL [facility] LABORATORY Creatinine 2.14 (H) 0.80 - 1.50 mg/dL [facility] LABORATORY Comment: Please note that the pediatric reference intervals supplied above were not validated at [facility]. Results from pediatri c patients should be interpreted in conjunction to the patient's age, height and muscle mass. Sodium 137 135 - 145 mmol/L [facility] [...] Chloride 97 (L) 98 - 107 mmol/L [facility] LABORATORY CO2 Not Perf 22 - 31 mmol/L [facility] LABORATORY Comment: Add-on request. Sample too old to perform test. Anion Gap Not Calculated 5 - 15 mmol/L [facility] LABORATORY Calcium 9.4 8.5 - 10.5 mg/dL [facility] LABORATORY Estimated GFR 32 (L) >=60 [facility] LABORATORY Comment: This estimated GFR (eGFR) [...] the following links into your internet browser. [email or web address] Specimen Anatomical Collection Method Collection Time Receive d Time (Source) Location / / Volume Laterality Blood specimen Venous Draw / 07/09/2016 5:51 PM 2016 6:10 (specimen) Unknown EST PM EST Resulting Agency Comment Spec In Lab Celso Casiano MD CHEMISTRY ORDERABLES Performing Organization Address City/State/[place] [address] (ABNORMAL) CRP, acute inflammation (07/09/2016 5:51 PM EST) P athologist Signature CRP >300.0 (H) <=4.9 mg/L [facility] LABORATORY Specimen Anatomical Collection Method Collection Time Receive d Time (Source) Location / / Volume Laterality Blood specimen 07/09/2016 5:51 PM 017 6:03 (specimen) EST PM EST Resulting Agency Comment Spec In Lab Celso Casiano MD CHEMISTRY ORDERABLES Performing Organization Address City/[facility]/ZIP Code Phon e Number [address] (ABNORMAL) Sedimentation rate (07/09/2016 5:51 PM EST) P athologist Signature Sed Rate 27 (H) 0 - 15 [facility] [place] mm/hr [facility] LABORATORY Specimen Anatomical Collection Method Collection Time Receive d Time (Source) Location / / Volume Laterality Blood specimen 07/09/2016 5:51 PM 017 6:03 (specimen) EST PM EST Resulting Agency Comment Spec In Lab Celso Casiano MD HEMATOLOGY ORDERABLES Performing Organization Address City/[facility]/[place]IP [place] [address] TSH (07/09/2016 5:51 PM EST) P athologist Signature TSH 1.11 0.27 - 4.20 [facility] [place] mcIU/mL [facility] LABORATORY Specimen Anatomical Collection Method Collection Time Receive d Time (Source) Location / / Volume Laterality Blood specimen 07/09/2016 5:51 PM 017 6:03 (specimen) EST PM EST Resulting Agency Comment Spec In Lab Celso Casiano MD CHEMISTRY ORDERABLES Performing Organization Address City/[facility]/[place]IP [place] [address] EKG 12 Lead (07/09/2016 4:58 PM EST) Component Value Ref Range Test Analysis Performed Pathologis t Method Time At Signature Ventricular rate 72 BPM MUSE SYSTEM Atrial Rate 72 BPM MUSE SYSTEM P-R Interval 164 ms MUSE SYSTEM QRS Duration 86 ms MUSE SYSTEM Q-T Interval 416 ms MUSE SYSTEM QTC Calculated 455 ms MUSE SYSTEM (Bezet) Calculated P [place] 6 degrees MUSE SYSTEM Calculated R [place] 5 degrees MUSE SYSTEM Calculated T [place] -3 degrees MUSE SYSTEM INTERPRETATION Normal sinus rhythm MUSE SYSTEM Moderate voltage criteria for LVH, may be normal variant Borderline ECG When compared with ECG of 17-AUG-2014 17:34, No significant change was found Confirmed by MD Hammer Megan ([id number]) on 07/10/2016 12: 47:13 PM Specimen Anatomical Collection Method Collection Time Receive d Time (Source) Location / / Volume Laterality 07/09/2016 4:58 PM 7 EST 12:47 PM EST Celso Casiano MD ECG ORDERABLES Performing Organization Address City/State/ZIP Code Phon e Number MUSE SYSTEM XR Chest PA & Lateral (Generic) (07/09/2016 4:50 PM EST) Anatomical Region Laterality Modality Chest N/A Digital Radiography Specimen (Source) Anatomical Location Collection Method / Collectio n Time Received Time / Laterality Volume Impressions 07/09/2016 5:08 PM EST No acute cardiopulmonary pathology identified on chest radiograph. Narrative 07/09/2016 5:08 PM EST EXAMINATION: XR CHEST PA AND LATERAL (GENERIC) CLINICAL HISTORY: patient presents with SOB, weakness, cough TECHNIQUE: 2 views of the chest. COMPARISON: July 05, 2009. FINDINGS: Slightly lower inspiratory depth in comp arison to the prior exam. Taking this into account the findings of the lungs a re stable. No pleural effusion. Size of the heart and width of the mediastinum a re within normal limits for AP technique. A right-sided port catheter e nds at the superior cavoatrial junction. Degenerative changes of the spine are se en again. Procedure Note Simran Mario MD - 2016 EXAMINATION: XR CHEST PA AND LATERAL (GE NERIC) CLINICAL HISTORY: patient presents with SOB, weakness, cough TECHNIQUE: 2 views of the chest. COMPARISON: July 05, 2009. FINDINGS: Slightly lower inspiratory depth in comp arison to the prior exam. Taking this into account the findings of the lungs a re stable. No pleural effusion. Size of the heart and width of the mediastinum a re within normal limits for AP technique. A right-sided port catheter e nds at the superior cavoatrial junction. Degenerative changes of the spine are se en again. IMPRESSION No acute cardiopulmonary pathology ident ified on chest radiograph. Celso Casiano MD IMG DX ORDERABLES documented in this encounter Visit Diagnoses Diagnosis Myopathy Myopathy, unspecified Myositis of lower extremity, unspecified laterality, unspecified myositis type Pain in joint, site unspecified documented in this encounter Admitting Diagnoses Diagnosis Myositis Mylagia and myositis, unspecified documented in this encounter Administered Medications Inactive Administered Medications - up to 3 most recent administrations Medication Order MAR Action Action Date Dose Rate Site acetaminophen (TYLENOL) tablet 650 Given 07/13/2016 8:50 AM EST 650 mg mg 650 mg, Oral, EVERY 6 HOURS PRN, Starting on Sat07/09/16 at 2258, Until Sat07/13/16 at 1530, Pain, Fever, Administer for temperature greater than or equal to 38.2 degrees celsius. Maximum daily dose of acetaminophen from all sources not to exceed 4,000 mg., Routine Given 07/12/2016 6:52 AM EST 650 mg Given 07/12/2016 12:33 AM EST 650 mg atenolol (TENORMIN) tablet 50 mg Given 07/13/2016 8:50 AM EST 50 mg 50 mg, Oral, DAILY, First dose on Sat07/10/16 at 0900, Until Discontinued, Routine Given 07/12/2016 8:46 AM EST 50 mg Given 07/11/2016 9:36 AM EST 50 mg bisacodyl (DULCOLAX) EC tablet 10 mg Given 07/12/2016 8:33 PM EST 10 mg 10 mg, Oral, DAILY PRN, Starting on Sat07/12/16 at 1939, Until Sat07/13/16 at 1530, Constipation, DO NOT CRUSH OR OPEN, Routine bisacodyl (DULCOLAX) suppository 10 mg 10 mg, Rectal, DAILY PRN, Starting on u 07/12/16 at 1939, Until Sat07/13/16 at 1530, Constipation, if no effect from PO, Routine dextrose 50% injection 25-50 mL 25-50 mL (12.5-25 g), Intravenous, EVERY 1 HOUR PRN, S tarting on Sat07/12/16 at 2312, Until Sat07/13/16 at 1530, Low bloo d sugar, For BG 50-70: 120 mL Juice or Regular (not diet) soda OR 12.5 gram (25 mL) Dextrose 50% IV OR, if no IV access, 1 mg Glucagon IM. Recheck BG in 30 minut es. May repeat juice, dextrose or glucagon once per episode For BG less than 50: 240 mL Juice or Regular (not diet) soda OR 25 grams (50 mL) Dextrose 50% IV OR, if no IV access, 1 mg Glucagon IM. Recheck BG in 30 minutes. May repeat juice, dext toya, or glucagon once per episode. To avoid extravasation, push Dextrose 50% SLOWLY (3 mL ov er 1 minute) in a patent, running IV, preferably a central line. For persisten t hypoglycemia, consider longer-acting treatment for the duration of the active insulin., Routine enoxaparin (LOVENOX) Given 07/12/2016 8:33 PM EST 40 mg Left Lower Quadrant injection 40 mg 40 mg, Subcutaneous, NIGHTLY, First dose on Sat07/09/16 at 2345, Until Discontinued, Routine Given 07/11/2016 8:40 PM EST 40 mg Given 07/10/2016 8:59 PM EST 40 mg glucagon (human recombinant) injection 1 mg 1 mg, Intramuscular, EVERY 1 HOUR PRN, L ow blood sugar, Starting on Sat07/12/16 at 2312, Until Sat07/13/16 at 1530, For BG 50-70: 120 mL Juice or Regular (not diet) soda OR 12.5 gram (25 mL) Dextrose 50% I V OR, if no IV access, 1 mg Glucagon IM. Recheck BG in 30 minutes. May repeat j uice, dextrose or glucagon once per episode For BG less than 50: 240 mL Juice or R egular (not diet) soda OR 25 grams (50 mL) Dextrose 50% IV OR, if no IV access, 1 m g Glucagon IM. Recheck BG in 30 minutes. May repeat juice, dextrose, or glucagon once per episode. To avoid extravasation, push Dextrose 50% SLOWLY (3 mL over 1 mi nute) in a patent, running IV, preferably a central line. For persistent hypoglyce nupur, consider longer-acting treatment for the duration of the active insulin. HYDROmorphone (DILAUDID) injection 0.5 m g Given 07/09/2016 7:23 PM EST 0.5 mg 0.5 mg, Intravenous, ONCE, 1 dose, On Sat07/09/16 at 1921, STAT HYDROmorphone (DILAUDID) injection 0.5 m g Given 07/09/2016 9:28 PM EST 0.5 mg 0.5 mg, Intravenous, ONCE, 1 dose, On Sat07/09/16 at 2115, STAT HYDROmorphone (DILAUDID) injection 0.5 m g Given 07/09/2016 5:47 PM EST 0.5 mg 0.5 mg, Intravenous, ONCE, 1 dose, On Sat07/09/16 at 1732, STAT HYDROmorphone (DILAUDID) oral liquid 2 m g Given 07/10/2016 1:11 AM EST 2 mg 2 mg, Oral, EVERY 4 HOURS PRN, Starting on Sat07/09/16 at 2314, Until Sat07/10/16 at 0458, Pain, for moderate-severe pain (>5/10) after Tylenol dose given, Routine HYDROmorphone (DILAUDID) tablet 2 mg Given 07/10/2016 5:22 AM EST 2 mg 2 mg, Oral, ONCE, 1 dose, On Sat07/10/16 at 0515, STAT HYDROmorphone (DILAUDID) tablet 4 mg Given 07/13/2016 4:01 AM EST 4 mg 4 mg, Oral, EVERY 4 HOURS PRN, Starting on Sat07/10/16 at 0457, Until Sat07/13/16 at 1530, Pain, Routine Given 07/12/2016 6:58 PM EST 4 mg Given 07/12/2016 11:43 AM EST 4 mg insulin glargine (LANTUS) VIAL injection 10 Given 07/2016 8:45 AM EST 10 Units Units 10 Units, Subcutaneous, ONCE, 1 dose, On Sat07/12/16 at 0745, Routine insulin glargine (LANTUS) VIAL injection 40 Given 06/2016 8:40 PM EST 40 Units Units 40 Units, Subcutaneous, NIGHTLY, First dose on Sat07/10/16 at 2100, Until Discontinued, Routine Given 07/10/2016 8:54 PM EST 40 Units insulin glargine (LANTUS) VIAL Given 07/12/2016 8:33 PM EST 60 U nits Left Arm injection 60 Units 60 Units, Subcutaneous, NIGHTLY, First dose (after last modification) on Sat07/12/16 at 2100, Until Discontinued, Routine insulin lispro (humaLOG) VIAL Given 07/13/2016 1:17 AM EST 12 Un its Left Arm injection 12 Units 12 Units, Subcutaneous, ONCE, 1 dose, On Sat07/13/16 at 0130, Routine insulin lispro (humaLOG) VIAL injection 2-8 Given 06/2016 4:00 PM EST 8 Units Units 2-8 Units, Subcutaneous, EVERY 4 HOURS SCHEDULED, First dose on Sat07/10/16 at 0000, Until Discontinued, CORRECTION BOLUS Moderate BG 140 - 160 Give 2 units BG 161 - 200 Give 4 units BG 201 - 240 Give 6 units BG greater than 240, give 8 units and recheck BG in 2 hours. If BG remains greater than 240, repeat 8 units (no more than three times) & call for new basal insulin orders. If less than 240 after two hours, give no insulin and resume prior schedule., Routine Given 07/11/2016 1:51 PM EST 8 Units Given 07/11/2016 11:45 AM EST 8 Units insulin lispro (humaLOG) VIAL injection Given 07/13/2016 11:27 A M EST 9 Units 3-12 Units 3-12 Units, Subcutaneous, EVERY 4 HOURS SCHEDULED, First dose on Sat07/11/16 at 1630, Until Discontinued, CORRECTION BOLUS Resistant to insulin obese patient and TDD (total daily dose of all insulin needed to achieve glycemic control) greater than 60 units BG 140 - 160 Give 3 units BG 161 - 200 Give 6 units BG 201 - 240 Give 9 units BG greater than 240, give 12 units and recheck BG in 2 hours. If BG remains greater than 240, repeat 12 units (no more than three times) & call for new basal insulin orders. If less than 240 after two hours, give no insulin and resume prior schedule., Routine Given 07/13/2016 7:36 AM EST 6 Units Given 07/13/2016 4:01 AM EST 12 Units Left Arm insulin lispro (humaLOG) VIAL Given 07/12/2016 11:16 PM EST 6 Un its Left Arm injection 6 Units 6 Units, Subcutaneous, ONCE, 1 dose, On Sat07/12/16 at 2330, Routine lidocaine (XYLOCAINE) 10 mg/mL (1 %) Given 07/10/2016 2:45 PM ES T 200 mg injection 200 mg 200 mg (20 mL), Subcutaneous, ONCE, 1 dose, On Sat07/10/16 at 1445, Routine magnesium sulfate 2 g in sterile water Given 07/10/2016 10:1 4 AM EST 2 g 25 mL/hr 50 mL 2 g, Intravenous, ONCE, 1 dose, On Sat07/10/16 at 0845, Administer over 120 Minutes ondansetron (ZOFRAN) injection 4 mg 4 mg, Intravenous, EVERY 8 HOURS PRN, St arting on Sat07/09/16 at 2258, Until Sat07/13/16 at 1530, Nausea, May repeat times one in 30 minutes if ineffective. If multiple antiemetics are ordered, give ondansetron fir st. ondansetron (ZOFRAN) tablet 4 mg 4 mg, Oral, EVERY 8 HOURS PRN, Starting on Sat07/09/16 at 2258, Until Sat07/13/16 at 1530, Nausea, Vomiting, If multiple antiemetics are ordered, use ondansetron first. PO Preferred. If patient unable to take PO, may give IV if ordered. May repeat times one in 45 minutes if ineffe ctive. If unable to take PO, may give IV., Routine pantoprazole (PROTONIX) injection 40 mg Given 07/12/2016 8:47 AM EST 40 mg 40 mg, Intravenous, DAILY, First dose on Sat07/10/16 at 0900, Until Discontinued Given 07/11/2016 8:19 AM EST 40 mg Given 07/10/2016 8:41 AM EST 40 mg pantoprazole (PROTONIX) tablet 40 mg Given 07/13/2016 8:50 AM EST 40 mg 40 mg, Oral, DAILY, First dose on Sat07/13/16 at 0900, Until Discontinued, DO NOT CRUSH OR OPEN, Routine polyethylene glycol (MIRALAX) packet 17 g Given 07/12/2016 8:47 AM EST 17 g 17 g, Oral, DAILY, First dose on Sat07/10/16 at 0900, Until Discontinued, Routine Given 07/10/2016 8:40 AM EST 17 g predniSONE (DELTASONE) tablet 40 mg Given 07/13/2016 8:50 AM EST 40 mg 40 mg, Oral, DAILY, First dose on Sat07/10/16 at 1700, Until Discontinued, Routine Given 07/12/2016 8:46 AM EST 40 mg Given 07/11/2016 8:18 AM EST 40 mg senna-docusate (PERICOLACE) 8.6-50 mg per Given 07/12/2016 8 :33 PM EST 1 tablet tablet 1 tablet 1 tablet, Oral, 2 TIMES DAILY, First dose on Sat07/12/16 at 0900, Until Discontinued, Routine Given 07/12/2016 8:47 AM EST 1 tablet sodium chloride 0.9 % flush 5 mL Given 07/12/2016 8:49 AM EST 5 mLs 5 mL, Intravenous, 2 TIMES DAILY, First dose on Sat07/09/16 at 2315, Until Discontinued, Routine Given 07/11/2016 8:41 PM EST 5 mLs Given 07/11/2016 8:21 AM EST 10 mLs sodium chloride 0.9% 1,000 mL IV bolus Given 07/09/2016 9:31 PM EST Intravenous, ONCE, 1 dose, On Sat07/09/16 at 2046 sodium chloride 0.9% 1,000 mL IV bolus Given 07/11/2016 4:49 PM EST Intravenous, ONCE, 1 dose, On Sat07/11/16 at 1645 sodium chloride 0.9% 1,000 mL IV bolus Given 07/09/2016 5:38 PM EST 4000 mL/hr at 4,000 mL/hr, Intravenous, ONCE, 1 dose, On Sat07/09/16 at 1653 sodium chloride 0.9% infusion New Bag 07/12/2016 11:51 PM EST 100 mL/hr 100 mL/hr 100 mL/hr, Intravenous, CONTINUOUS, Starting on Sat07/11/16 at 1630, Until Sat07/13/16 at 1530 New Bag 07/12/2016 1:46 PM EST 100 mL/hr 100 mL/hr New Bag 07/12/2016 4:22 AM EST 100 mL/hr 100 mL/hr terazosin (HYTRIN) capsule 5 mg Given 07/12/2016 8:33 PM EST 5 mg 5 mg, Oral, NIGHTLY, First dose on Sat07/09/16 at 2345, Until Discontinued, Routine Given 07/11/2016 8:40 PM EST 5 mg Given 07/10/2016 9:06 PM EST 5 mg documented in this encounter Active and Recently Administered Medications Times are shown in EST. Scheduled Medication Order 07/11/2016 07/12/2016 07/13/2016 atenolol (TENORMIN) tablet 50 mg 0936 (Given - Provider: Sujata Hernandez RN) 0846 (Given - Provider: Gabrielle Murillo RN) 0850 (Given - Provider: Norma Woodard RN) 50 mg, Oral, DAILY, First dose on Sat at 0900, Until Discontinued, Routine enoxaparin (LOVENOX) injection 40 mg 2039 (Given - Pro vider: Isabell Simmons RN) 2032 (Given - Provider: Angel Campos RN) 40 mg, Subcutaneous, NIGHTLY, First dose on Sat07/09/16 at 2345, Until Discontinued, Routine insulin glargine (LANTUS) VIAL injection 10 Units (COMPLETED ) 844 (Given - Provider: Gabrielle Murillo RN) 10 Units, Subcutaneous, ONCE, 1 dose, Sat07/12/16 at 0745, Routin e insulin glargine (LANTUS) VIAL injection 40 Units (CAN CELED) 2039 (Given - Provider: Isabell Simmons RN) 40 Units, Subcutaneous, NIGHTLY, First d ose on Sat07/10/16 at 2100, Until Discontinued, Routine insulin glargine (LANTUS) VIAL injection 60 Units 2032 (Given - Provider: Angel Campos RN) 60 Units, Subcutaneous, NIGHTLY, First d ose on Sat07/12/16 at 2100, Until Discontinued, Routine insulin lispro (humaLOG) VIAL injection 12 Units (COMPLETED) 116 (Given - Provider: Angel Campos RN) 12 Units, Subcutaneous, ONCE, 1 dose, Sat07/13/16 at 0130, Routin e insulin lispro (humaLOG) VIAL injection 2-8 Units (CAN CELED) 0059 (Given - Provider: Robles Donovan RN)0334 (Given - Provider: Robles Donovan RN)0748 (Given - Provider: Ellen Hernandez RN)1145 (Given - Provider: Ellen Hernandez RN)1351 (Given - Provider: Deja Rivera RN - Comment: FS 278) 2-8 Units, Subcutaneous, EVERY 4 HOURS S CHEDULED, First dose on Sat07/10/16 at 0000, Until Discontinued, CORRECTION BOLUS Moderate BG 140 - 160 Give 2 units BG 161 - 200 Give 4 units BG 201 - 240 Gi 1600 (Given - Provider: Deja Rivera, WES - Comment: Third time BG over 240. paged to change sliding scale.) ve 6 units BG greater than 240, give 8 u nits and recheck BG in 2 hours. If BG remains greater than 240, repeat 8 units (no more than three times) & call for new basal insulin orders. If less than 24 0 after two hours, give no insulin and resume prior schedule., R outine insulin lispro (humaLOG) VIAL injection 3-12 Units(R[employer] 1) 1650 (Given - Provider: Deja Rivera, RN)2039 (Given - Provider: Isabell Simmons, RN) 0035 (Given - Provider: Isabell Simmons, RN)0500 (Given - Provider: Isabell Simmons RN)0643 (Given - Provider: Angel Campos, WES)0849 (Given - Provider: Gabrielle Murillo RN)1135 (Given - Provider: Gabrielle Murillo RN) 0000 (Not Given - Provider: Angel Campos, WES - Reason: Contraindicated)0401 (Given - Provider: Angel Campos, WES)0736 (Given - Provider: Norma Woodard, WES)1127 (Given - Provider: Norma Woodard RN) 3-12 Units, Subcutaneous, EVERY 4 HOURS SCHEDULED, First dose on Sat07/11/16 at 1630, Until Discontinued, CORRECTION BOLUS Resistant to insulin obese patient and TDD (total daily dose of all insulin 1649 (Given - Provider: Gabrielle Murillo, WES)1859 (Given - Provider: Gabrielle Murillo, WES)2110 (Given - Provider: Angel Campos, WES) needed to achieve glycemic control) grea ter than 60 units BG 140 - 160 Give 3 units BG 161 - 200 Give 6 units BG 201 - 240 Give 9 units BG greater than 240, give 12 units and recheck BG in 2 hours. If B G remains greater than 240, repeat 12 un its (no more than three times) & call for new basal insulin orders. If less than 240 after two hours, give no insulin and resume prior schedule., Routine insulin lispro (humaLOG) VIAL injection 6 Units (COMPLETED) 2316 (Given - Provider: Angel Campos, WES) 6 Units, Subcutaneous, ONCE, 1 dose, Sat07/12/16 at 2330, Routine pantoprazole (PROTONIX) injection 40 mg (CANCELED) 081 9 (Given - Provider: Ellen Hernandez RN) 0847 (Given - Provider: Gabrielle Murillo RN) 40 mg, Intravenous, DAILY, First dose on Sat07/10/16 at 0900, Until Discontinued pantoprazole (PROTONIX) tablet 40 mg 0850 (Given - Provider: Norma Woodard RN) 40 mg, Oral, DAILY, First dose on 08/24 at 0900, Until Discontinued, DO NOT CRUSH OR OPEN, Routine polyethylene glycol (MIRALAX) packet 17 g 09 (Not Gi sparkle - Provider: Ellen Hernandez RN - Reason: Patient/family refused) 0847 (Given - Provider: Gabrielle Murillo RN) 0900 (Not Given - Provider: Norma Ernst ch, RN - Reason: Patient/family refused) 17 g, Oral, DAILY, First dose on 06/12 at 0900, Until Discontinued, Routine predniSONE (DELTASONE) tablet 40 mg 0818 (Given - Provider: Ellen Hernandez RN) 0846 (Given - Provider: Gabrielle Murillo RN) 0850 (Given - Provider: Norma Woodard RN) 40 mg, Oral, DAILY, First dose on Sat at 1700, Until Discontinued, Routine senna-docusate (PERICOLACE) 8.6-50 mg per tablet 1 tablet 0847 (Given - Provider: Gabrielle Murillo RN)2032 (Given - Provider: Angel Campos, WES) 0850 (Not Given - Provider: Norma Woodard RN - Reason: Patient/family refused) 1 tablet, Oral, 2 TIMES DAILY, First dos e on Sat07/12/16 at 0900, Until Discontinued, Routine sodium chloride 0.9 % flush 5 mL 0821 (Given - Provide r: Ellen Hernandez RN)2040 (Given - Provider: Isabell Simmons RN) 0849 (Given - Provider: Gabrielle Murillo RN)2099 (Not Given - Provider: Angel Campos RN - Reason: See comment - Comment: infusing) 0900 (Not Given - Provider: Norma Ernst ch, RN - Reason: Contraindicated - Comment: IV infusing, stopped, infiltrated) 5 mL, Intravenous, 2 TIMES DAILY, First dose on Sat07/09/16 at 2315, Until Discontinued, Routine sodium chloride 0.9% 1,000 mL IV bolus (COMPLETED) 164 9 (Given - Provider: Deja Rivera RN) Intravenous, ONCE, 1 dose, Sat07/11/16 at 1645 terazosin (HYTRIN) capsule 5 mg 2040 (Given - Provider: Jaki Simmons RN) 2033 (Given - Provider: Angel Campos, WES) 5 mg, Oral, NIGHTLY, First dose on Sat at 2345, Until Discontinued, Routine Continuous Medication Order 07/11/2016 07/12/2016 07/13/2016 sodium chloride 0.9% infusion 1816 (New Bag - Provider: Oriana Rivera RN) 0422 (New Bag - Provider: Isabell Simmons RN)1346 (New Bag - Provider: Gabrielle Murillo RN)2351 (New Bag - Provider: Tamia Layton RN) 0800 (Stopped - Provider: Norma Woodard RN) 100 mL/hr, at 100 mL/hr, Intravenous, CO NTINUOUS, Starting Sat07/11/16 at 1630, Until Sat07/13/16 at 1530 PRN Medication Order 07/11/2016 07/12/2016 07/13/2016 acetaminophen (TYLENOL) tablet 650 mg 0410 (Given - Pr ovider: Robles Donovan RN)0650 (Given - Provider: Ellen Hernandez RN)1649 (Given - Provider: Deja Rivera RN) 0033 (Given - Provider: Isabell Simmons RN)0652 (Given - Provider: Angel Campos RN) 0850 (Given - Provider: Norma Woodard RN) 650 mg, Oral, EVERY 6 HOURS PRN, Startin g Sat07/09/16 at 2258, Until Sat07/13/16 at 1530, Pain, Fever, Administer for temperature greater than or equal to 38.2 degrees celsius. Maximum daily dose of acet aminophen from all sources not to exceed 4,000 mg., Routine bisacodyl (DULCOLAX) EC tablet 10 mg(Linked Group 2) 2032 (Given - Provider: Angel Campos, WES) 10 mg, Oral, DAILY PRN, Starting Razia 07/12 at 1939, Until Sat07/13/16 at 1530, Constipation, DO NOT CRUSH OR OPEN, Routine bisacodyl (DULCOLAX) suppository 10 mg(Linked Group 2) 2032 (See Alternative - Provider: Angel Campos RN) 10 mg, Rectal, DAILY PRN, Starting Raiza at 1939, Until Sat07/13/16 at 1530, Constipation, if no effect from PO, Routine dextrose 50% injection 25-50 mL(Linked Group 3) 25-50 mL (12.5-25 g), Intravenous, EVERY 1 HOUR PRN, Starting Raiza 07/12/16 at 2312, Until Sat07/13/16 at 1530, Low blood sugar, For BG 50-70: 120 mL Juice or Regular (not diet) soda OR 12.5 gram (25 mL) Dextrose 50% IV OR, if no IV access, 1 m g Glucagon IM. Recheck BG in 30 minutes. May repeat juice, dextrose or glucagon once per episode For BG less than 50: 240 mL Juice or Regular (not diet) soda OR 25 grams (50 mL) Dextrose 50% IV OR, if no IV access, 1 mg Glucagon IM. Recheck BG in 30 minutes. May repeat juice, dextrose, or glucagon once per episode. To avoid extravasation, push Dextrose 5 0% SLOWLY (3 mL over 1 minute) in a peterson nt, running IV, preferably a central line. For persistent hypoglycemia, consider longer-acting treatment for the duration of the active insulin., Routine glucagon (human recombinant) injection 1 mg(Linked Group 3) 1 mg, Intramuscular, EVERY 1 HOUR PRN, S tarting Raiza 07/12/16 at 2312, Until Sat07/13/16 at 1530, Low blood sugar, For BG 50-70: 120 mL Juice or Regular (not diet) soda OR 12.5 gram (25 mL) Dextrose 50% I V OR, if no IV access, 1 mg Glucagon IM. Recheck BG in 30 minutes. May repeat juice, dextrose or glucagon once per episode For BG less than 50: 240 mL Juice or Regular (not diet) soda OR 25 grams (5 0 mL) Dextrose 50% IV OR, if no IV acces s, 1 mg Glucagon IM. Recheck BG in 30 minutes. May repeat juice, dextrose, or glucagon once per episode. To avoid extravasation, push Dextrose 50% SLOWLY (3 m L over 1 minute) in a patent, running IV , preferably a central line. For persistent hypoglycemia, consider longer-acting treatment for the duration of the active insulin. , Routine HYDROmorphone (DILAUDID) tablet 4 mg 0410 (Given - Pro vider: Robles Donovan RN)0817 (Given - Provider: Ellen Hernandez, WES)1744 (Given - Provider: Deja Rivera, WES)2205 (Given - Provider: Isabell Simmons RN) 0422 (Given - Provider: Isabell Simmons RN)1143 (Given - Provider: Gabrielle Murillo, WES)1858 (Given - Provider: Gabrielle Murillo RN) 0401 (Given - Provider: Angel Campos , WES) 4 mg, Oral, EVERY 4 HOURS PRN, Starting Sat07/10/16 at 0457, Until Sat07/13/16 at 1530, Pain, Routine lidocaine (XYLOCAINE) 10 mg/mL (1 %) injection 3 mg 3 mg (0.3 mL), Subcutaneous, ONCE PRN, 1 dose, Starting Sat07/09/16 at 2258, Until Sat07/13/16 at 1530, for discomfort with PIV insertion, Routine ondansetron (ZOFRAN) injection 4 mg(Linked Group 4) 4 mg, Intravenous, EVERY 8 HOURS PRN, St arting 07/09/16 at 2258, Until Sat07/13/16 at 1530, Nausea, May repeat times one in 30 minutes if ineffective. If multiple antiemetics are ordered, give ondansetron first. ondansetron (ZOFRAN) tablet 4 mg(Linked Group 4) 4 mg, Oral, EVERY 8 HOURS PRN, Starting Sat07/09/16 at 2258, Until Sat07/13/16 at 1530, Nausea, Vomiting, If multiple antiemetics are ordered, use ondansetron first. PO Preferred. If patient unable t o take PO, may give IV if ordered. May r epeat times one in 45 minutes if ineffective. If unable to take PO, may give IV., Routine senna-docusate (PERICOLACE) 8.6-50 mg per tablet 2 tablet 2 tablet, Oral, 2 TIMES DAILY PRN, Start ing Sat07/09/16 at 2258, Until Sat07/13/16 at 1530, Constipation, Routine sodium chloride 0.9 % flush 5-20 mL 5-20 mL, Intravenous, EVERY 1 MIN PRN, S tarting Sat07/09/16 at 2258, Until Sat07/13/16 at 1530, flush, Flush pertains to all indwelling lines. Flush per protocol found in the job aid using the link provided on this medication record., Routine Linked Groups Order Group 1: POCT Fingerstick Glucose (CANCELED) Routine, EVERY 4 HOURS, First occurrence on Sat07/11/16 at 2000, Until Specified
Consider choosing EVERY 4 HOURS as frequency for: - Type 1 Diabetes - At least 24 hours after coming off an insul in drip - At least 24 hours after admiss ion for DKA - Hypoglycemia unawareness - Patients who are otherwise unstable Select the same frequency for the correction bolus insulin order And insulin lispro (humaLOG) VIAL injection 3-12 UnitsJump to med 3-12 Units, Subcutaneous, EVERY 4 HOURS SCHEDULED, First dose on Sat07/11/16 at 1630, Until Discontinued
CORRECTION BOLUS Resistant to insulin obese patient and TDD (total daily dose of all insulin needed to ach ieve glycemic control) greater than 60 units BG 140 - 160 Give 3 units BG 161 - 200 Give 6 units BG 201 - 240 Give 9 un its BG greater than 240 , give 12 units and recheck BG in 2 hours. If BG remains greater than 240, repeat 12 units (no more than three times) & call for new basal ins ulin orders. If less than 240 after two hours, give no insulin and resume prior schedule.
Routine Group 2: bisacodyl (DULCOLAX) EC tablet 10 mgJump to med 10 mg, Oral, DAILY PRN, Starting Raiza 07/12 at 1939, Until Sat07/13/16 at 1530, Constipation
DO NOT CRUSH OR OPEN
Routine Or bisacodyl (DULCOLAX) suppository 10 mgJump to med 10 mg, Rectal, DAILY PRN, Starting Sat at 1939, Until Sat07/13/16 at 1530, Constipation, if no effect from PO, Routine Group 3: dextrose 50% injection 25-50 mLJump to med 25-50 mL (12.5-25 g), Intravenous, EVERY 1 HOUR PRN, Starting Sat07/12/16 at 2312, Until Sat07/13/16 at 1530, Low blood sugar
For BG 50- 70: 120 mL Juice or Regular (not diet) soda OR 12.5 gram (25 mL) Dextrose 50% IV OR, if no IV access, 1 mg Glucagon IM. Recheck BG in 30 minutes. May repeat juice, dextrose or glucagon once per episod e For BG less than 50: 240 mL Jui ce or Regular (not diet) soda OR 25 grams (50 mL) Dextrose 50% IV OR, if no IV access, 1 mg Glucagon IM. Recheck BG in 30 minutes. &nb sp;May repeat juice, dextrose, or glucag on once per episode. To avoid extravasation, push Dextrose 50% SLOWLY (3 mL over 1 minute) in a patent, running IV, preferably a central line.&nbsp ;For persistent hypoglycemia, consider longer-acting treatment for the duration of the active insulin.
Routine Or glucagon (human recombinant) injection 1 mgJump to med 1 mg, Intramuscular, EVERY 1 HOUR PRN, S tarting Raiza 07/12/16 at 2312, Until Sat07/13/16 at 1530, Low blood sugar
For BG 50-70: 120 mL Juice or Regular (not diet) soda OR 12.5 gram (25 mL) Dextrose 50% IV OR, if no I V access, 1 mg Glucagon IM. Recheck BG in 30 minutes. May repeat juice, dextrose or glucagon once per episode F or BG less than 50: 240 mL Juice or Regu lar (not diet) soda OR 25 grams (50 mL) Dextrose 50% IV OR, if no IV access, 1 mg Glucagon IM. Recheck BG in 30 minutes. May repeat juice, dextrose, or glucagon once per ep isode. To avoid extravasation, push Dextrose 50% SLOWLY (3 mL over 1 minute) in a patent, running IV, preferably a central line. For persist ent hypoglycemia, consider longer-acting treatment for the duration of the active insulin.
Routine Group 4: ondansetron (ZOFRAN) tablet 4 mgJump to med 4 mg, Oral, EVERY 8 HOURS PRN, Starting 07/09/16 at 2258, Until Sat07/13/16 at 1530, Nausea, Vomiting
If multiple antiemetics are ordered, use ondansetron first. PO Preferred. I f patient unable to take PO, may give IV if ordered. May repeat times one in 45 minutes if ineffective. If unable to take PO, may give IV.
Routine Or ondansetron (ZOFRAN) injection 4 mgJump to med 4 mg, Intravenous, EVERY 8 HOURS PRN, St arting 07/09/16 at 2258, Until Sat07/13/16 at 1530, Nausea
May repeat times one in 30 minutes if ineffective. If multiple antiemetics are ordered, give ondansetron first.
documented in this encounter Care Teams Learning Disabilities Specialist Relationship Specialty Start Date End Date Jazmine Baer MD PCP - General 11/07/10 [address] [place] [address] documented as of this encounter
--- OUTSIDE RECORDS SUMMARY | 2022-04-11 10:52 | XMS_ITS | Encounter Summary ---
:1960 Author Organization [place] [address] Care Team Providers Name Role Phone Jazmine Baer MD Primary Care Provider Reason for Visit Reason Comments Follow-up Encounter Details Date Type Department Care Team Description 08/02/2016 Office Visit Rheumatology at [facility] Akash Prieto, Acute idiopathic [facility] gout, [place] [address] [place] [address] R[address]. [place] [address] Social History Tobacco Use Types Packs/Day Years Used Date Never Smoker Smokeless Tobacco: Never Used Alcohol Use Standard Drinks/Week Comments No 0 (1 standard drink = 0.6 oz pure alcoho l) Sex Assigned at Date Recorded Not on file documented as of this encounter Last Filed Vital Signs Vital Sign Reading Time Taken Comments Blood Pressure 145/67 08/02/2016 3:35 PM EST Pulse 80 08/02/2016 3:35 PM EST Temperature 36.8 ??C (98.3 ??F) 08/02/2016 3:35 PM EST Respiratory Rate 18 08/02/2016 3:35 PM EST Oxygen Saturation 98% 08/02/2016 3:35 PM EST Inhaled Oxygen Concentration - - Weight 119.7 kg (264 lb) 08/02/2016 3:35 PM EST Height 174 cm (5' 8.5) 08/02/2016 3:35 PM EST Body Mass Index 39.56 08/02/2016 3:35 PM EST documented in this encounter Progress Notes Akash Prieto MD - 08/02/2016 4:00 PM EST The patient is a 56-year-old male with 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 His CKs initially were in the 10,000 to 11,000 range, and he got a partial response from IVIG 1 gram/kg twice on 2 successive days each month. His CKs have been trending down and most recently they have been in the normal range. He had one of 203 and one of 140 in the last two that were drawn last month. His IVIG is 2 successive days still, but the Solu-Medrol was cut down to 1 day a month. 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 The gout, in retrospect, was a past history which I think was podagra, but he had not been on therapy for as long as we knew him. When he developed this polyarticular flare, it was in the context of starting azathioprine (he had failed rituxan and methotrexate) and although there is no convincing reason why azathioprine should cause gout, the observation is temporally correlated. He has other medications that might have contributed, including furosemide and hydrochlorothiazide, but those were longstanding and should not have precipitated an attack. In any case, the attack was characterized by both knee and ankle involvement, and aspiration of his knee yielded urate crystals. At that time, his uric acid was 13.3 and was recommended to be started on allopurinol, but he was treated acutely with prednisone. He remains on 20 mg of prednisone for the gout. He is asymptomatic from the gout now and on exam does not have tophi. In fact, he is back to his functional level before the gout attack. However, he has not started the allopurinol because the pharmacy was worried about the interaction with azathioprine, even though he had stopped the azathioprine when he got the attack. In any case, he is going to start allopurinol now and will remeasure his uric acid in 2 weeks and at that time will start slowly weaning him off the prednisone 5 mg every time we increase the allopurinol. I suspect it will take between 300 and 400 mg of allopurinol in order to get his uric acid down to a 7, and that will probably take a couple of months to achieve. During that period of time, will be dropping his prednisone by 5 mg each time, and hopefully we will not have a repeat of this episode. I will follow up in 2 months. documented in this encounter Plan of Treatment Upcoming Encounters Date Type Specialty Care Team Description 06/19/2022 Office Visit Rheumatology Richi Blackmon MD [facility] DR RHEUMATOLOGY [place], [place] [address] (Wo rk) Scheduled Procedures Name Priority Associated Diagnoses Date/Time EGD, UPPER GI ENDOSCOPY Family hx of colon cance r COLONOSCOPY, DIAGNOSTIC Family hx of colon cance r documented as of this encounter Visit Diagnoses Diagnosis Acute idiopathic gout, unspecified site documented in this encounter Care Teams Coarse Wire Drawer Relationship Specialty Start Date End Date Jazmine Baer MD PCP - General 11/07/10 [address] [place] [address] documented as of this encounter
--- OUTSIDE RECORDS SUMMARY | 2022-04-11 10:52 | XMS_ITS | Encounter Summary ---
:1960 Author Organization [facility] [place] [address] Care Team Providers Name Role Phone Jazmine Baer MD Primary Care Provider Encounter Details Date Type Department Care Team Description 07/07/2016 Telephone [place]rology [place] [facility] Jana Jorgensen MD [facility] [place] [address] NEUROLOGY DEPT [phone] [place], [place] [address] (Wo rk) Social History Tobacco Use Types Packs/Day Years Used Date Never Smoker Smokeless Tobacco: Never Used Alcohol Use Standard Drinks/Week Comments No 0 (1 standard drink = 0.6 oz pure alcoho l) Sex Assigned at Date Recorded Not on file documented as of this encounter Miscellaneous Notes Telephone Encounter - Jana Jorgensen MD - 07/07/2016 11:01 AM EST Major difficulties getting out of bed and has a great deal of pain. Trouble controlling his legs Last treatment was on and of this month with IV solumedrol and IVIG. He was recently started on azathioprine 2 weeks ago. He got a cold and had right knee weakness (started about 10-12 days ago) and now has bilateral LE weakness. He has also had diarrhea for the last few days. Appears to be a flu bug. And now his has it as well. No trouble breathing, no chest pain. Last CPK level was on Jun 19 and it was 551 He talked to his auto hauler who prescribed the medication and he thought this was not due to azathioprine. Most likely due to his flu like illness his myopathy might be worse. Able to tolerate PO, recommend continued hydration. Can continue to monitor if feel comfortable or consider coming in if does improve. documented in this encounter Plan of Treatment Upcoming Encounters Date Type Specialty Care Team Description 06/19/2022 Office Visit Rheumatology Richi Blackmon MD [facility] DR RHEUMATOLOGY [place], [place] [address] (Wo rk) Scheduled Procedures Name Priority Associated Diagnoses Date/Time EGD, UPPER GI ENDOSCOPY Family hx of colon cance r COLONOSCOPY, DIAGNOSTIC Family hx of colon cance r documented as of this encounter Visit Diagnoses Not on filedocumented in this encounter Care Teams Efficiency Manager Relationship Specialty Start Date End Date Jazmine Baer MD PCP - General 11/07/10 [address] [place] [address] documented as of this encounter
--- OUTSIDE RECORDS SUMMARY | 2022-04-11 10:52 | XMS_ITS | Encounter Summary ---
:1960 Author Organization [facility] [place] [address] Care Team Providers Name Role Phone Jazmine Baer MD Primary Care Provider Reason for Visit Reason Comments Follow-up Encounter Details Date Type Department Care Team Description 05/17/2016 Office Visit Rheumatology at [facility] Akash Preito MD [facility] [place] [address] RHEUMATOLOGY DEPT. [phone] [place] [id number] (Wo rk) Social History Tobacco Use Types Packs/Day Years Used Date Never Smoker Smokeless Tobacco: Never Used Alcohol Use Standard Drinks/Week Comments No 0 (1 standard drink = 0.6 oz pure alcoho l) Sex Assigned at Date Recorded Not on file documented as of this encounter Progress Notes Akash Prieto MD - 05/17/2016 1:30 PM EST The patient is a 56-year-old male with statin-induced myopathy from 2008, with positive SRMP-6 antibodies to the HMG-CoA reductase enzyme. His CKs were initially in the 10,000 to 11,000 range, and he got partial response from IVIG 1 g/kg twice on 2 successive days each month. His CKs have been trending down and is now at 421. We have cut back his Solu-Medrol to 1 day a month, because we feel that he has had too many steroid side effects and we do not have a CK on that regimen, but he is due for it in a week or so, when he gets his next IVIG. Overall, he feels a lot stronger. He is walking with a walker here. He walks sometimes without any aid at home, even outside, and he is independent for ADLs in the bathroom. In the past, he was wheelchair-bound and even bed-bound, with 2 to 3 people needing to lift him up, and he was not at all independent for any activities of daily living, so he is much, much better than he used to be. On exam, he is healthy-appearing. He has some seborrheic dermatitis on his face, but he looks healthy. His blood pressure is 155/54, pulse of 58. His height is 69 inches. His weight is 276, which is the highest he has ever been since I have been following him. He was 230 when I first started. His strength exam is 5- in the upper extremities and 3+ in the lower extremities proximally. He has no skin findings of autoimmune skin disease. His capillaroscopy was normal. 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 His lower extremity proximal strength is weak, and I think that, along with his weight, is the major impetus for getting him off the steroids. He needs a steroid-sparing drug. We were not able to get mycophenolate approved, but for reasons that are unclear to me, we were unable to get azathioprine approved either. I will try resubmitting it and see if we can get approval this time around. On his part, he needs to do increased exercise and increase dieting. In order to make sure he tolerates the azathioprine, I have ordered TPMT enzyme testing, which is pending at the time of this dictation. I will follow up, coordinated with Dr. Gleason, in July. documented in this encounter Plan of Treatment Upcoming Encounters Date Type Specialty Care Team Description 06/19/2022 Office Visit Rheumatology Richi Blackmon MD [facility] RHEUMATOLOGY [place], [place] [address] (Wo rk) Scheduled Procedures Name Priority Associated Diagnoses Date/Time EGD, UPPER GI ENDOSCOPY Family hx of colon cance r COLONOSCOPY, DIAGNOSTIC Family hx of colon cance r documented as of this encounter Procedures Procedure Name Priority Date/Time Associated Diagnosis Comme nts ORDS - PROVIDER CARE 06/25/2016 12:00 AM EST SCAN documented in this encounter Results SCAN DOC: ORDS - PROVIDER CARE (06/25/2016 12:00 AM EST) Narrative This result has an attachment that is no t available. Scanning Provider MEDIA MGR SCAN EXT ORDR/RSLT documented in this encounter Visit Diagnoses Diagnosis Myopathy Myopathy, unspecified documented in this encounter Care Teams Nuclear Technologist Relationship Specialty Start Date End Date Jazmine Baer MD PCP - General 11/07/10 [address] [place] [address] documented as of this encounter
--- OUTSIDE RECORDS SUMMARY | 2022-04-11 10:52 | XMS_ITS | Encounter Summary ---
:1960 Author Organization [facility] [place] [address] Care Team Providers Name Role Phone Jazmine Baer MD Primary Care Provider Reason for Visit Reason Onset Date Comments Other 06/21/2016 Encounter Details Date Type Department Care Team Description 06/21/[address] [facility] [place] [address] Social History Tobacco Use Types Packs/Day Years Used Date Never Smoker Smokeless Tobacco: Never Used Alcohol Use Standard Drinks/Week Comments No 0 (1 standard drink = 0.6 oz pure alcoho l) Sex Assigned at Date Recorded Not on file documented as of this encounter Miscellaneous Notes Telephone Encounter - Shanthi Pham RN - 06/21/2016 8:35 AM EST [employer] calls for more information in regards to PA for Imuran. documented in this encounter Plan of Treatment Upcoming Encounters Date Type Specialty Care Team Description 06/19/2022 Office Visit Rheumatology Richi Blackmon MD [facility] DR RHEUMATOLOGY [place], [place] [address] (Wo rk) Scheduled Procedures Name Priority Associated Diagnoses Date/Time EGD, UPPER GI ENDOSCOPY Family hx of colon cance r COLONOSCOPY, DIAGNOSTIC Family hx of colon cance r documented as of this encounter Visit Diagnoses Not on filedocumented in this encounter Care Teams Animal Bounty Hunter Relationship Specialty Start Date End Date Jazmine Baer MD PCP - General 11/07/10 [address] [place] [address] documented as of this encounter
--- OUTSIDE RECORDS SUMMARY | 2022-04-11 10:52 | XMS_ITS | Encounter Summary ---
:1960 Author Organization [facility] [place] [address] Care Team Providers Name Role Phone Jazmine Baer MD Primary Care Provider Reason for Referral Diagnostic Test (Routine) - Closed Specialty Diagnoses / Procedures Referred By Contact Refer red To Contact Radiology Diagnoses Iron deficiency anemia, unspecified iron deficiency anemia type Rhiannon Headley MD [facility] Rad Mri Procedures MRI Abdomen With/WO Contrast (GENERIC) [place] [address] [place] [address] Referral ID Status Reason Start Date Expiration Date Visits V isits Requested Authorized [id number] Closed Specialty 03/06/2016 03/06/2017 1 1 Service Requested Reason for Visit Diagnostic Test (Routine) - Closed Specialty Diagnoses / Procedures Referred By Contact Refer red To Contact Radiology Diagnoses Iron deficiency anemia, unspecified iron deficiency anemia type Rhiannon Headley MD [facility] Rad Mri Procedures MRI Abdomen With/WO Contrast (GENERIC) [place] [address] [place] [address] Referral ID Status Reason Start Date Expiration Date Visits V isits Requested Authorized [id number] Closed Specialty 03/06/2016 03/06/2017 1 1 Service Requested Encounter Details Date Type Department Care Team Description 09/19/2016 Hospital [place] [facility] [place]iannon Headley MD Iron deficiency [facility] deficiency Michael, SHAKIRA GASTROENTEROLOGY anemia type [id number] HSAKIRA FRANCIS [phone] [id number] Social History Tobacco Use Types Packs/Day Years Used Date Never Smoker Smokeless Tobacco: Never Used Alcohol Use Standard Drinks/Week Comments No 0 (1 standard drink = 0.6 oz pure alcoho l) Sex Assigned at Date Recorded Not on file documented as of this encounter Medications at Time of Discharge Medication Sig Dispensed Refills Start Date End Date insulin glargine Inject 40 Units 0 (Lantus) 100 unit/mL subcutaneously nightly. (3 mL) pen furosemide (LASIX) 20 Take 1 tablet by mouth 30 tablet 12 mg TabletIndications: daily. Myopathy multivitamin Capsule Take 1 capsule by mouth 0 daily. allopurinol Take 200 mg by mouth 1 [...] Visit Rheumatology Richi Blackmon MD [facility] ER DR RHEUMATOLOGY [place], [place] [address] (Wo rk) Scheduled Procedures Name Priority Associated Diagnoses Date/Time EGD, UPPER GI ENDOSCOPY Family hx of colon cance r COLONOSCOPY, DIAGNOSTIC Family hx of colon cance r documented as of this encounter Procedures Procedure Name Priority Date/Time Associated Diagnosis Comme nts MRI ABDOMEN WWO Routine 09/19/2016 11:13 AM Iron deficiency Re sults for this CONTRAST EDT anemia, unspecified procedur e are in iron deficiency the results anemia type section. documented in this encounter Results MRI Abdomen With/WO Contrast (GENERIC) (09/19/2016 11:13 AM EDT) Anatomical Region Laterality Modality Abdomen Magnetic Resonance Specimen (Source) Anatomical Location Collection Method / Collectio n Time Received Time / Laterality Volume Impressions 09/19/2016 3:45 PM EDT 1. ??No new or suspicious hepatic lesions. Stable small hepatic hemangioma. 2. ??Unchanged 7 mm pancreatic cyst sinc e 07/07/2013. Most likely, this represents a sidebranch IPMN (intraductal papillary mucinous neoplasm). 3. ??Interval enlargement of the spleen. 4. ??Mildly nodular hepatic contour sugg estive of cirrhosis. LI-RADS 5V = Definitely hepatocellular c arcinoma with tumor in vein LI-RADS 5 = Definitely hepatocellular ca rcinoma (concordant with OPTN 5) LI-RADS 4 = Probably hepatocellular carc inoma LI-RADS 3 = Intermediate probability for hepatocellular carcinoma LI-RADS 2 = Probably benign LI-RADS 1 = Definitely benign NOTE: LI-RADS categories should be inter preted [...] and documentation are a vailable online at www.acr.org/LI-RADS. This report utilizes LI-RADS version 201 4. I have personally reviewed the image(s) and the residents interpretation and agree with the findings, Rosalia barlow 09/19/2016 3:45 PM Narrative 09/19/2016 3:45 PM EDT EXAMINATION: MRI ABDOMEN WWO CONTRAST (GENERIC) CLINICAL HISTORY: Cirrhosis survey for h epatoma TECHNIQUE: MRI of the abdomen was perfor med with images obtained prior to and following intravenous administration of 12mL of Gadavist using the dynamic liver protocol. COMPARISONS: MRIs of the abdomen, dates between 05/30/2015 and 07/07/2013 FINDINGS: The fat-suppressed T2 and T1-w eighted images are limited by poor fat suppression. LIVER: Prior interventions: None. Liver Morphology: Normal size. Mildly no dular contour. Focal hepatic lesions: Lesion 1: Segment 5 Size: 14mm Enhancement: Peripheral enhancement on t he arterial phase images with progressive centripetal filling out to 5 minutes. Washout or pseudocapsule: None. T2 signal: Hyperintense Change from prior: None. LI-RADS: 2. Hemangioma. VASCULATURE Portal Vein: Widely Patent. Varices: None. The umbilical vein is rec analized, but remains small in caliber. Ascites: None. Bile ducts: Nondilated. Spleen: Enlarged, 17.5 cm. Previously 15 cm on 05/30/2015. No focal lesions. Gallbladder: A few stones are present in the dependent portion of the gallbladder. Normal caliber archuleta. Pancreas: Stable nonenhancing 7 mm cysti c lesion in the body since 07/07/2013. Questionable sub-5 mm cyst versus ectati c duct in the pancreatic head/uncinate process, also unchanged. Adrenals: Normal. Kidneys: Stable nonenhancing simple cyst s in both kidneys, unchanged in size and number. Aorta: No aneurysm. Lymph nodes: No enlarged lymph nodes. Bowel: Nondilated, no inflammatory sosa es. There is a fat-containing umbilical mariusz ia, incompletely visualized. Marrow Signal: Normal. Procedure Note Sonja, Rosalia J, MD - 09/19/2016Formatt ing of this note might be different from the original. EXAMINATION: MRI ABDOMEN WWO CONTRAST (G ENERIC) CLINICAL HISTORY: Cirrhosis survey for h epatoma TECHNIQUE: MRI of the abdomen was perfor med with images obtained prior to and following intravenous administration of 12mL of Gadavist using the dynamic liver protocol. COMPARISONS: MRIs of the abdomen, dates between 05/30/2015 and 07/07/2013 FINDINGS: The fat-suppressed T2 and T1-w eighted images are limited by poor fat suppression. LIVER: Prior interventions: None. Liver Morphology: Normal size. Mildly no dular contour. Focal hepatic lesions: Lesion 1: Segment 5 Size: 14mm Enhancement: Peripheral enhancement on t he arterial phase images with progressive centripetal filling out to 5 minutes. Washout or pseudocapsule: None. T2 signal: Hyperintense Change from prior: None. LI-RADS: 2. Hemangioma. VASCULATURE Portal Vein: Widely Patent. Varices: None. The umbilical vein is rec analized, but remains small in caliber. Ascites: None. Bile ducts: Nondilated. Spleen: Enlarged, 17.5 cm. Previously 15 cm on 05/30/2015. No focal lesions. Gallbladder: A few stones are present in the dependent portion of the gallbladder. Normal caliber archuleta. Pancreas: Stable nonenhancing 7 mm cysti c lesion in the body since 07/07/2013. Questionable sub-5 mm cyst versus ectati c duct in the pancreatic head/uncinate process, also unchanged. Adrenals: Normal. Kidneys: Stable nonenhancing simple cyst s in both kidneys, unchanged in size and number. Aorta: No aneurysm. Lymph nodes: No enlarged lymph nodes. Bowel: Nondilated, no inflammatory sosa es. There is a fat-containing umbilical mariusz ia, incompletely visualized. Marrow Signal: Normal. IMPRESSION 1. No new or suspicious hepatic lesions. Stable small hepatic hemangioma. 2. Unchanged 7 mm pancreatic cyst since 07/07/2013. Most likely, this represents a sidebranch IPMN (intraductal papillary mucinous neoplasm). 3. Interval enlargement of the spleen. 4. Mildly nodular hepatic contour sugges tive of cirrhosis. LI-RADS 5V = Definitely hepatocellular c arcinoma with tumor in vein LI-RADS 5 = Definitely hepatocellular ca rcinoma (concordant with OPTN 5) LI-RADS 4 = Probably hepatocellular carc inoma LI-RADS 3 = Intermediate probability for hepatocellular carcinoma LI-RADS 2 = Probably benign LI-RADS 1 = Definitely benign NOTE: LI-RADS categories should be inter preted [...] and documentation are a vailable online at www.acr.org/LI-RADS. This report utilizes LI-RADS version 201 4. I have personally reviewed the image(s) and the residents interpretation and agree with the findings, Rosalia barlow 09/19/2016 3:45 PM Rhiannon Headley MD IMG MRI ORDERABLES documented in this encounter Visit Diagnoses Diagnosis Iron deficiency anemia, unspecified iron deficiency anemia type documented in this encounter Administered Medications Inactive Administered Medications - up to 3 most recent administrations Medication Order MAR Action Action Date Dose Rate Site gadobutrol (GADAVIST) 1 mMol/mL Given 09/19/2016 10:41 AM EDT 12 mLs injection 12 mL 12 mL, Intravenous, ONCE PRN, 1 dose, Starting on Sat09/19/16 at 1041, Until Sat09/19/16 at 1041, Per Protocol, Routine documented in this encounter Care Teams Python Consultant Relationship Specialty Start Date End Date Jazmine Baer MD PCP - General 11/07/10 [address] [place] [address] documented as of this encounter
--- OUTSIDE RECORDS SUMMARY | 2022-04-11 10:52 | XMS_ITS | Encounter Summary ---
:1960 Author Organization [facility] [place] [address] Care Team Providers Name Role Phone Jazmine Baer MD Primary Care Provider Encounter Details Date Type Department Care Team Description 08/17/2016 Orders Only Gastroenterology at [facility] [place] [address] Social History Tobacco Use Types Packs/Day Years [...] MD [facility] DR RHEUMATOLOGY [place], [place] [address] (Wo rk) Scheduled Procedures Name Priority Associated Diagnoses Date/Time EGD, UPPER GI ENDOSCOPY Family hx of colon cance r COLONOSCOPY, DIAGNOSTIC Family hx of colon cance r documented as of this encounter Visit Diagnoses Not on filedocumented in this encounter Care Teams Gallery Host Relationship Specialty Start Date End Date Jazmine Baer MD PCP - General 11/07/10 [address] [place] [address] documented as of this encounter
--- OUTSIDE RECORDS SUMMARY | 2022-04-11 10:52 | XMS_ITS | Encounter Summary ---
:1960 Author Organization [facility] [place] [address] Care Team Providers Name Role Phone Jazmine Baer MD Primary Care Provider Encounter Details Date Type Department Care Team Description 08/02/2016 [place] [facility] [place]ucky [place]ryor, EGD, UPPER GI [facility] Hilda [place] [address] [facility] [phone] GASTROENTEROLOGY [place] [id number] Social History Tobacco Use Types Packs/Day Years Used Date Never Smoker Smokeless Tobacco: Never Used Alcohol Use Standard Drinks/Week Comments No 0 (1 standard drink = 0.6 oz pure alcoho l) Sex Assigned at Date Recorded Not on file documented as of this encounter Last Filed Vital Signs Vital Sign Reading Time Taken Comments Blood Pressure 141/53 08/02/2016 8:30 AM EST Pulse 58 08/02/2016 8:13 AM EST Temperature - - Respiratory Rate 18 08/02/2016 8:13 AM EST Oxygen Saturation 99% 08/02/2016 8:30 AM EST Inhaled Oxygen Concentration - - Weight - - Height - - Body Mass Index - - documented in this encounter Discharge Instructions Discharge InstructionsDeja Leach RN - 08/02/2016 8:14 AM EST Please call [phone] before 8pm with problems, questions or concerns, after 5pm call the Hospital at [phone] and ask to speak to the Back Seam Stitcher front end java developer and the ditto machine operator will contact that person for [...] be sent through Care Everywhere. COLONOSCOPY: POST-OP (TURKMEN)documented in this encounter Medications at Time of [...] Rheumatology Richi Blackmon MD [facility] [place] [address] (Wo rk) Scheduled Procedures Name [...] VIDEO CAPSULE ENDOSCOPY (08/02/2016 4:06 PM EST) [facility] Method Time Signature VIDEO CAPSULE [facility] ENDOSCOPY Endoscopy Procedure Date: 08/02/2016 4:06 PM ? Patient Name: Bucky Acevedo ? Date of : 1960 ? Age: 56 ? Order #: [id number] ? Instrument Name: ? Procedure: ? Video capsule endoscopy Indications: ? Iron deficiency anemia Providers: ? Bucky Pryor MD Referring MD: ?Jazmine Baer MD Medicines: ? None Complications: [...] Signature POC Glucose 103 65 - 199 [place] mg/dL [facility] Comment: Supplemental ranges: <140 mg/dL before meals <180 mg/dL all other times of the day Specimen Anatomical Collection Method Collection Time Receive d Time (Source) Location / / Volume Laterality Blood specimen 08/02/2016 8:39 AM 017 8:39 (specimen) EST AM EST Bucky Pryor MD POINT OF CARE TEST ORDERABLE S Performing Organization Address City/State/[place] [address] (ABNORMAL) POCT Glucose (08/02/2016 7:35 AM EST) athologist Signature POC Glucose 52 65 - 199 [facility] ([facility] mg/dL [facility] Comment: Supplemental ranges: <140 mg/dL before meals <180 mg/dL all other times of the day Specimen Anatomical Collection Method Collection Time Receive d Time (Source) Location / / Volume Laterality Blood specimen 08/02/2016 7:35 AM 017 7:35 (specimen) EST AM EST Bucky Pryor MD POINT OF CARE TEST ORDERABLE S Performing Organization Address City/State/[place] [address] UPPER GI ENDOSCOPY (08/02/2016 7:31 AM EST) [facility] Method Time Signature UPPER GI [facility] ENDOSCOPY Endoscopy Procedure Date: 08/02/2016 7:31 AM ? Patient Name: Bucky Acevedo ? Date of : 1960 ? Age: 56 ? Order #: [id number] ? Instrument Name: [id number] ? Procedure: ? Upper GI endoscopy Indications: [...] reactions. The ? Endoscope was introduced thro [facility] the ? mouth, and advanced to [...] MD GENERAL SURGICAL ORDERABLES Performing Organization Address City/[facility]/ZIP Code Phon e Number [place] (ABNORMAL) POCT Glucose (08/02/2016 7:28 AM EST) athologist Signature POC Glucose 42 65 - 199 [facility] (Critical) mg/dL [facility] Comment: Supplemental ranges: <140 mg/dL before meals <180 mg/dL all other times of the day Specimen Anatomical Collection Method Collection Time Receive d Time (Source) Location / / Volume Laterality Blood specimen 08/02/2016 7:28 AM 017 7:28 (specimen) EST AM EST Bucky Pryor MD POINT OF CARE TEST ORDERABLE S Performing Organization Address City/State/ZIP Code Phon e Number [place] [phone] documented in this encounter Visit Diagnoses Not on filedocumented in this encounter Administered Medications Inactive Administered Medications - up to 3 most recent administrations Medication Order MAR Action Action Date Dose Rate Site fentaNYL 50 mcg/mL multi-dose Given 08/02/2016 7:59 AM EST 50 mc g Right Arm injection ONCE PRN, Starting on Raiza 08/02/16 at 0753, Until Raiza 08/02/16 at 1110, Intra-Operative (Intra-Procedure), Routine Given 08/02/2016 7:56 AM EST 50 mcg Right Arm Given 08/02/2016 7:53 AM EST 50 mcg Right Arm midazolam (PF) (VERSED) 1 mg/mL Given 08/02/2016 7:59 AM EST 1 m g Right Arm multi-dose injection ONCE PRN, Starting on Raiza 08/02/16 at 0753, Until Raiza 08/02/16 at 1110, Intra-Operative (Intra-Procedure), Routine Given 08/02/2016 7:56 AM EST 1 mg Right Arm Given 08/02/2016 7:53 AM EST 1 mg Right Arm documented in this encounter Active and Recently Administered Medications Times are shown in EST. PRN Medication Order 07/31/2016 08/01/2016 08/02/2016 fentaNYL 50 mcg/mL multi-dose injection (CANCELED) 0753 (Given - Provider: Sherry Miller RN)0756 (Given - Provider: Sherry Miller RN)0759 (Given - Provider: Sherry Miller RN) ONCE PRN, Starting Raiza 08/02/16 at 0753, Until Raiza 08/02/16 at 1110, Intra- Operative (Intra-Procedure), Routine midazolam (PF) (VERSED) 1 mg/mL multi-dose injection (CANCELED) 0753 (Given - Provider: Sherry Miller RN)0756 (Given - Provider: Sherry Miller RN)0759 (Given - Provider: Sherry Miller RN) ONCE PRN, Starting Raiza 08/02/16 at 0753, Until Raiza 08/02/16 at 1110, Intra- Operative (Intra-Procedure), Routine documented in this encounter Care Teams Interventional Sale Consultant Relationship Specialty Start Date End Date Jazmine Baer MD PCP - General 11/07/10 [address] [place] [address] documented as of this encounter
--- OUTSIDE RECORDS SUMMARY | 2022-04-11 10:53 | XMS_ITS | Encounter Summary ---
:1960 Author Organization [facility] [place] [address] Care Team Providers Name Role Phone Jazmine Baer MD Primary Care Provider Reason for Visit Reason Onset Date Comments Health Screening 03/22/2016 Encounter Details Date Type Department Care Team Description 03/22/2016 Telephone Hematology and Oncology at [facility] [place] [address] Social History Tobacco Use Types Packs/Day Years Used Date Never Smoker Smokeless Tobacco: Never Used Alcohol Use Standard Drinks/Week Comments No 0 (1 standard drink = 0.6 oz pure alcoho l) Sex Assigned at Date Recorded Not on file documented as of this encounter Miscellaneous Notes Telephone Encounter - Jessica Santos RN - 03/22/2016 11:40 AM EDT Reviewed pre op health assessment with patient over the phone. Patient denies further questions. Form given to clinical litigation secretary to be faxed to [facility] as required RN will continue to follow. documented in this encounter Plan of Treatment Upcoming Encounters Date Type Specialty Care Team Description 06/19/2022 Office Visit Rheumatology Richi Blackmon MD [facility] DR RHEUMATOLOGY [place], [place] [address] (Wo rk) Scheduled Procedures Name Priority Associated Diagnoses Date/Time EGD, UPPER GI ENDOSCOPY Family hx of colon cance r COLONOSCOPY, DIAGNOSTIC Family hx of colon cance r documented as of this encounter Visit Diagnoses Not on filedocumented in this encounter Care Teams Ceo And Founder Relationship Specialty Start Date End Date Jazmine Baer MD PCP - General 11/07/10 [address] [place] [address] documented as of this encounter
--- OUTSIDE RECORDS SUMMARY | 2022-04-11 10:53 | XMS_ITS | Encounter Summary ---
:1960 Author Organization [facility] [place] [address] Care Team Providers Name Role Phone Jazmine Baer MD Primary Care Provider Encounter Details Date Type Department Care Team Description 10/13/2015 Office Visit Neurology at [facility] Henrry Gleason, Necrotizing myopathy [facility] [place] [address] NEUROLOGY DEPT. [place], [place] [address] Social History Tobacco Use Types Packs/Day Years Used Date Never Smoker Smokeless Tobacco: Never Used Alcohol Use Standard Drinks/Week Comments No 0 (1 standard drink = 0.6 oz pure alcoho l) Sex Assigned at Date Recorded Not on file documented as of this encounter Last Filed Vital Signs Vital Sign Reading Time Taken Comments Blood Pressure 160/65 10/13/2015 10:35 AM EDT Pulse 67 10/13/2015 10:35 AM EDT Temperature - - Respiratory Rate - - Oxygen Saturation - - Inhaled Oxygen Concentration - - Weight 123.8 kg (273 lb) 10/13/2015 10:35 AM EDT Height 175.3 cm (5' 9) 10/13/2015 10:35 AM EDT Body Mass Index 40.32 10/13/2015 10:35 AM EDT documented in this encounter Progress Notes Henrry Gleason MD - 10/13/2015 11:13 AM EDT Bucky 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 No IV steroids since 5-6 mos.. His CPK is creeping down and is presently in the 300's. Because it had creeped up slightly, Dr. Prieto has increased the dose of IVIG slightly.?? He is now walking with a walker. He is a heavy man at 275 pounds. Trying to do some walking, but no PT at present. Was to get a port placed but nothing has happened. He denies any bowel or bladder dysfunction or any shortness of breath or chest pain. Some leg swelling which is getting better with walking. On exam CN'2 2-12 OK. Arms are full strength now. He has 4/5 weakness in the iliopsoas and quads bilaterally and near normal strength distally in his lower extremities. The knee flexors may be slightly weak as well. He is areflexic in LE's, nl in UE's. His sensory exam is normal.?? He has no major atrophy of his muscles. He is walking with a walker. He is to see Dr. Prieto today. He likely needs some form of immune modulation above and beyond what he is getting now. Other options might include pulsed IV steroids, tracrolimus, cellcept, imuran or even plasma exchange. Will try to discuss with Dr. Prieto today.?? His legs are stronger today, but I am worried about the increasing CK level. He needs to lose weight. Serial CK's being checked. Will followup with him in 3 mos.?? documented in this encounter Plan of Treatment Upcoming Encounters Date Type Specialty Care Team Description 06/19/2022 Office Visit Rheumatology Richi Blackmon MD [facility] ER DR RHEUMATOLOGY [place], [place] [address] (Wo rk) Scheduled Procedures Name Priority Associated Diagnoses Date/Time EGD, UPPER GI ENDOSCOPY Family hx of colon cance r COLONOSCOPY, DIAGNOSTIC Family hx of colon cance r documented as of this encounter Visit Diagnoses Diagnosis Necrotizing myopathy Other myopathies documented in this encounter Care Teams Propeller Tester Relationship Specialty Start Date End Date Jazmine Baer MD PCP - General 11/07/10 [address] [place] [address] documented as of this encounter
--- OUTSIDE RECORDS SUMMARY | 2022-04-11 10:53 | XMS_ITS | Encounter Summary ---
:1960 Author Organization [facility] Address [place] [id number] Care Team Providers Name Role Phone Jazmine Baer MD Primary Care Provider Reason for Referral Diagnostic Test (Routine) - Closed Specialty Diagnoses / Procedures Referred By Contact Refer red To Contact Radiology Diagnoses Iron deficiency anemia, unspecified iron deficiency anemia type Rhiannon Headley MD [facility] Rad Mri Procedures MRI Abdomen With/WO Contrast (GENERIC) [facility] [place] [address] [place] [address] Referral ID Status Reason Start Date Expiration Date Visits V isits Requested Authorized [id number] Closed Specialty 03/06/2016 03/06/2017 1 1 Service Requested Encounter Details Date Type Department Care Team Description 03/06/2016 Office Visit Gastroenterology at [facility] Rhiannon Headley MD Iron deficiency anemia, unspecified iron deficiency anemia type; [facility] Hilda shafer [facility] 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; [place] [address] CENTER Diabetes mellitus type 2, uncomplicated [phone] [place] [address] Social History Tobacco Use Types Packs/Day Years Used Date Never Smoker Smokeless Tobacco: Never Used Alcohol Use Standard Drinks/Week Comments No 0 (1 standard drink = 0.6 oz pure alcoho l) Sex Assigned at Date Recorded Not on file documented as of this encounter Last Filed Vital Signs Vital Sign Reading Time Taken Comments Blood Pressure 129/57 03/06/2016 1:28 PM EDT Pulse 65 03/06/2016 1:28 PM EDT Temperature - - Respiratory Rate - - Oxygen Saturation - - Inhaled Oxygen Concentration - - Weight 121.9 kg (268 lb 12.8 oz) 03/06/2016 1:28 PM EDT Height 175.3 cm (5' 9) 03/06/2016 1:28 PM EDT Body Mass Index 39.69 03/06/2016 1:28 PM EDT documented in this encounter Progress Notes Rhiannon Headley MD - 03/06/2016 1:30 PM EDT Gastroenterology and Hepatology Follow [...] vein (while on Lovenox); now on coumadin Preventative Health: 1. HAV/HBV: (+)/(-)- received HBV [...] Interval History: Doing ok, muscle pain/weakness tolerable. No weight loss. Current Outpatient Prescriptions Medication Sig Dispense Refill ??? ferrous sulfate 324 mg (65 mg iron) Tablet, Delayed Release (E.C.) Take 324 mg by mouth every other day. ??? METHYLPREDNISOLONE SOD SUCC/PF (SOLU-MEDROL, PF, IV) Inject into the vein. ??? terazosin (HYTRIN) 5 mg Capsule Take 5 mg by mouth nightly. ??? indomethacin (INDOCIN) 50 mg Capsule Take 50 mg by mouth as needed. ??? atenolol (TENORMIN) 50 mg Tablet Take 50 mg by mouth daily. ??? glipiZIDE (GLUCOTROL XL) 5 mg Tablet Extended Rel 24 hr Take 5 mg by mouth daily. ??? furosemide (LASIX) 20 mg Tablet Take 1 tablet by mouth daily. 30 tablet 12 ??? UNABLE TO FIND IVIG every month for 2 days ??? insulin glargine (LANTUS) Solution Inject 25 Units subcutaneously nightly. (Patient taking differently: Inject 80 Units subcutaneously nightly.) 10 mL 12 ??? insulin lispro (HUMALOG) Solution Inject 2-4 Units subcutaneously 3 times daily (with meals). (Patient taking differently: Inject 10-12 Units subcutaneously 3 times daily (with meals).) 10 mL 12 ??? multivitamin Capsule Take 1 capsule by mouth daily. ??? omeprazole (PRILOSEC) 40 mg capsule Take 1 capsule by mouth daily. 90 capsule 3 ??? ondansetron (ZOFRAN) 4 mg tablet Take 1 tablet by mouth as needed. 20 tablet 3 ??? lisinopril-hydrochlorothiazide (PRINZIDE;ZESTORETIC) 20-12.5 mg per tablet Take 2 tablets by mouth daily. No current facility-administered medications for this visit. Vitals: 03/06/16 1328 BP: 129/57 BP Location ([facility]): Left arm Patient Position: Sitting BP Cuff Sizes: Adult (25-34 cm) Pulse: 65 Weight: (!) 121.9 kg (268 lb 12.8 oz) Height: 175.3 cm (5' 9) Body mass index is 39.69 kg/(m^2). Recent Results (from the past 24 hour(s)) Hemoglobin A1c Result Value Ref Range Hemoglobin A1C 6.3 (H) 4.3 - 5.6 % Est Avg Gluc 134 mg/dL Comprehensive metabolic panel (non-fasting) Result Value Ref Range Glucose Lvl 116 65 - 199 mg/dL BUN 40 (H) 10 - 20 mg/dL Creatinine 1.28 0.80 - 1.50 mg/dL Sodium 140 135 - 145 mmol/L Potassium 4.1 3.5 - 5.0 mmol/L Chloride 102 98 - 107 mmol/L CO2 22 22 - 31 mmol/L Anion Gap 16 (H) 5 - 15 mmol/L Calcium 9.1 8.5 - 10.5 mg/dL Total Protein 9.3 (H) 6.1 - 8.0 gm/dL Albumin 3.6 3.2 - 5.2 gm/dL AST 29 0 - 39 unit/L ALT 23 0 - 55 unit/L Alk Phos 93 40 - 120 unit/L Total Bilirubin 0.7 0.2 - 1.3 mg/dL Bili, Direct 0.2 0.0 - 0.3 mg/dL Estimated GFR 58 (L) >=60 Lipid panel (fasting) Result Value Ref Range Chol, Total 208 (H) <=199 mg/dL Triglycerides 346 (H) <=149 mg/dL HDL 27 (L) >=40 mg/dL LDL Cholesterol 112 (H) <=99 mg/dL Chol/HDL Ratio 7.7 ratio Prothrombin Time Result Value Ref Range PT 14.3 12.0 - 15.0 sec INR 1.1 0.9 - 1.1 Exam: Looks well Anicteric Abd- protuberant, non tender Ext- no edema Assessment and Plan: 55 y.o. 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 His liver disease remains well compensated. We discussed management of metabolic risk factors to treat hischronic liver disease. He also has iron deficiency anemia that is unexplained. Recommendations: Iron deficiency- -Start ferrous gluconate 325mg daily. This causes less constipation than the ferrous sulfate that hefirst tried but stopped due to constipation. -Obtain EGD to look for GAVE, evaluate for gastopathy (though none seen 08/23) and place capsule endoscopy camera to assess for small bowel cause of iron deficiency anemia -if above testing negative repeat colonoscopy that was last done in 2013 HORTON- -Continue to treat diabetes- good control now -Weight loss on low carb diet. Try to discuss this more at next visit. -[place] 3 fatty acids for hypertriglyceridemia Cirrhosis- MRI in 6 mos for HCC screening No signs of liver decompensation, though low platelets do suggest portal hypertension Rhiannon Headley MD Section of Gastroenterology & Hepatology [address] [place] [id number] Greater than 50% of this 30 minute visit was spent in discussion. Cc: JAZMINE BAER MD documented in this encounter Plan of Treatment Upcoming Encounters Date Type Specialty Care Team Description 06/19/2022 Office Visit Rheumatology Richi Blackmon MD [facility] ER DR RHEUMATOLOGY DEP [place], [place] [address] (Wo rk) Scheduled Procedures Name Priority Associated Diagnoses Date/Time EGD, UPPER GI ENDOSCOPY Family hx of colon cance r COLONOSCOPY, DIAGNOSTIC Family hx of colon cance r documented as of this encounter Results (ABNORMAL) Prothrombin Time (09/19/2016 12:20 PM EDT) P athologist Signature PT 15.2 (H) 12.0 - [...] circumstances. INR 1.2 (H) 0.9 - 1.1 [facility] Specimen Anatomical Collection Method Collection Time Receive d Time (Source) Location / / Volume Laterality Blood specimen 09/19/2016 12:20 7 (specimen) PM EDT 12:52 PM EDT Resulting Agency Comment Spec In Lab Rhiannon Headley MD HEMATOLOGY ORDERABLES Performing Organization Address City/State/ZIP Code Phon e Number [facility] [place] [address] (ABNORMAL) Comprehensive metabolic panel (non-fasting) (09/19/2016 12:20 PM EDT) P athologist Signature Glucose Lvl 110 65 - 199 [facility] mg/dL [facility] Comment: Diabetes: >=200 mg/dL plus symp toms BUN 29 (H) 10 - 20 mg/dL [facility] Creatinine 1.42 0.80 - 1.50 mg/dL [facility] Comment: Please note that the pediatric reference intervals supplied above were not validated at [facility]. Results from pediatri c patients should be interpreted in conjunction to the patient's age, height and muscle mass. Sodium 136 135 - 145 mmol/L [facility] Potassium 3.4 (L) 3.5 - 5.0 mmol/L [facility] Comment: Please note: ??Patients with WBC >100,00 0 may have falsely elevated Potassium levels. ??For accurate Potassium quantif ication in these patients send serum separator tube (gold top) for subsequent determinations. ??Contact the Clinical Chemistry Laboratory if there are any qu estions. Chloride 100 98 - 107 mmol/L [facility] CO2 23 22 - 31 mmol/L [facility] Anion Gap 13 5 - 15 mmol/L [facility] Calcium 8.8 8.5 - 10.5 mg/dL [facility] Total Protein 8.5 (H) 6.1 - 8.0 gm/dL [facility] Albumin 2.9 (L) 3.2 - 5.2 gm/dL [facility] AST 20 0 - 39 unit/L [facility] ALT 14 0 - 55 unit/L [facility] Alk Phos 102 40 - 120 unit/L [facility] Total Bilirubin 0.8 0.2 - 1.3 mg/dL [facility] Bili, Direct 0.2 0.0 - 0.3 mg/dL [facility] Estimated GFR 51 (L) >=60 [facility] Comment: This estimated GFR (eGFR) [...] the following links into your internet browser. [email or web address] [email or web address] Specimen Anatomical Collection Method Collection Time Receive d Time (Source) Location / / Volume Laterality Blood specimen 09/19/2016 12:20 7 (specimen) PM EDT 12:52 PM EDT Resulting Agency Comment Spec In Lab Rhiannon Headley MD CHEMISTRY ORDERABLES Performing Organization Address City/State/[place] [address] (ABNORMAL) Hemoglobin A1c (09/19/2016 12:20 PM EDT) Analysis Performed At Patho logist Time Signature Hemoglobin A1C 6.4 (H) 4.3 - 5.6 [facility] Comment: Reference Range: 4.3 - [...] Mellitus, Diabetes Care 2013; 36: Suppl. 1, Z07-62 Est Avg Gluc 137 mg/dL [facility] Comment: eAG equivalents for HbA1c percentages: HbA1c(%) ?eAG(mg/dL) 6.0 ?126 6.5 ?140 7.0 ?154 7.5 ?169 8.0 ?183 8.5 ?197 9.0 ?212 9.5 ?226 10.0 ? 240 Limitations: The eAG calculation has not been validated on women, individuals below 18 years old and above 70 years old, and individuals with hemoglobinopathies. Additional resources are available on ADA website: http://[employer]/DHMCadacalc José FLORES, Chaz J, Jeff R, et al. ??Tr anslating the A1C assay into estimated average glucose values. ??Diabetes Care 2008:31(8):5323-1535. Specimen Anatomical Collection Method Collection Time Receive d Time (Source) Location / / Volume Laterality Blood specimen 09/19/2016 12:20 7 (specimen) PM EDT 12:52 PM EDT Resulting Agency Comment Spec In Lab Rhiannon Headley MD CHEMISTRY ORDERABLES Performing Organization Address City/State/ZIP Code Phon e Number [place] [id number] [address] MRI Abdomen With/WO Contrast (GENERIC) (09/19/2016 11:13 [...] incompletely visualized. Marrow Signal: Normal. Procedure Note Rosalia Casillas MD - 09/19/2016Formatt ing of this note [...] at risk for hepatocellular carcinoma. The [facility] criteria for definite hepatocellular carcinoma are concordant [...] mention of complication, not stated as uncontrolled Iron deficiency anemia, unspecified iron deficiency anemia type documented in this encounter Care Teams Density Control Puncher Relationship Specialty Start Date End Date Jazmine Baer MD PCP - General 11/07/10 [address] [place] [address] documented as of this encounter
--- OUTSIDE RECORDS SUMMARY | 2022-04-11 10:53 | XMS_ITS | Encounter Summary ---
:1960 Author Organization [facility] [place] [address] Care Team Providers Name Role Phone Jazmine Baer MD Primary Care Provider Encounter Details Date Type Department Care Team Description 01/11/2016 Orders Only Rheumatology at [facility] Akash Prieto MD [facility] [place] [address] RHEUMATOLOGY DEPT. [phone] [place], [place] [address] (Wo rk) Social History Tobacco [...] 06/19/2022 Office Visit Rheumatology Richi Blackmon MD [facility] RHEUMATOLOGY DEP [place], [place] [address] (Wo rk) Scheduled Procedures Name Priority Associated Diagnoses Date/Time EGD, UPPER GI ENDOSCOPY Family hx of colon cance r COLONOSCOPY, DIAGNOSTIC Family hx of colon cance r documented as of this encounter Visit Diagnoses Diagnosis Myopathy Myopathy, unspecified documented in this encounter Care Teams Dental Sales Representative Relationship Specialty Start Date End Date Jazmine Baer MD PCP - General 11/07/10 [address] [place] [address] (work) documented as of this encounter
--- OUTSIDE RECORDS SUMMARY | 2022-04-11 10:53 | XMS_ITS | Encounter Summary ---
:1960 Author Organization [facility] [place] [address] Care Team Providers Name Role Phone Jazmine Baer MD Primary Care Provider Encounter Details Date Type Department Care Team Description 03/06/2016 Hospital Encounter Ultrasound at [facility] Kunal Norman Liver cirrhosis [facility] MD Nikia secondary to HORTON Drive [facility] [address] GASTROENTEROLOGY [phone] [place] [address] Social History Tobacco Use Types Packs/Day Years [...] Take 1 capsule by 0 mouth daily. glipiZIDE (GLUCOTROL XL) TAKE ONE TABLET BY 3 08/30/2016 10 mg Tablet Extended Rel MOUTH EVERY DAY 24 hr ferrous sulfate 324 mg Take 324 mg by mouth 0 07/02/2017 (65 mg iron) Tablet, every other day. Delayed Release (E.C.) METHYLPREDNISOLONE SOD Inject into the 0 03/16/2016 SUCC/PF (SOLU-MEDROL, PF, vein. IV) terazosin (HYTRIN) 5 mg Take 5 mg by mouth 0 09/0908/02/2016 Capsule nightly. Reported on 08/02/2016 indomethacin (INDOCIN) 50 Take 50 mg by mouth 0 0 09/15/2015 10/02/2017 mg Capsule as needed. atenolol (TENORMIN) 50 mg Take 50 mg by mouth 0 10/02/2017 Tablet daily. UNABLE TO FIND IVIG every month for 0 03/16/2016 2 days insulin glargine (LANTUS) Inject 25 Units 10 mL 12 07/1303/16/2016 Solution subcutaneously nightly. insulin lispro (HUMALOG) Inject 2-4 Units 10 mL 12 07/1303/16/2016 Solution subcutaneously 3 times daily (with meals). omeprazole (PRILOSEC) 40 Take 1 capsule by [...] 06/19/2022 Office Visit Rheumatology Richi Blackmon MD [facility] ER RHEUMATOLOGY [place], [place] [address] (Wo rk) Scheduled Procedures Name Priority Associated Diagnoses Date/Time EGD, UPPER GI ENDOSCOPY Family hx of colon cance r COLONOSCOPY, DIAGNOSTIC Family hx of colon cance r documented as of this encounter Procedures Procedure Name Priority Date/Time Associated Diagnosis Comme nts US ABDOMEN COMPLETE Routine 03/06/2016 10:40 AM Liver cirrhosi s Results for this WITH VASCULAR EDT secondary to HORTON procedure are in the results section. documented in this encounter Results US Abdomen Complete With Vascular (03/06/2016 10:40 AM EDT) Anatomical Region Laterality Modality Abdomen Ultrasound Specimen (Source) Anatomical Collection Method Collection Time Re ceived Time Location / / Volume Laterality 03/06/2016 10:36 AM EDT Impressions 03/06/2016 1:25 PM EDT ??Ultrasound Dictation: 1. ??Evaluation is limited by patient b fany habitus and bowel gas. 2. ??Stable mild hepatomegaly with coar se, echogenic parenchyma, consistent with reportedly known HORTON cirrhosis. 3. ??Stable 16 mm right hepatic lobe he mangioma, as seen on prior 06/04/2014 MRI abdomen. No new sonographically evident hepatic mass identified. 4. ??Stable moderate splenomegaly. No a scites. 5. ??The visualized hepatic veins, visu alized portal veins, and hepatic artery are patent with normal directional flow . I have personally reviewed the image(s) and the residents interpretation and agree with the findings, Sue Kam at 03/06/2016 1:19 PM ?Sue arreola MD Electronically Signed Final Report ?? 01:25 pm Narrative 03/06/2016 1:25 PM EDT Abdominal Duplex ?(Signed Final 03/06/2016 01:25 pm) PATIENT INFO: ID #: ? [id number] ? : [birth year] (55 yrs) Name: ? BUCKY BETH ?Visit Date:03/06/2016 10:36 am PERFORMED BY: Performed By: ? Bandar Higgins RDMS Attending: ?Negin FONSECA, Sue Spear Referred By: ?KUNAL NORMAN MD SERVICE(S) PROVIDED: ??UABDCVASC - Abdominal Complete Survey with Vascular ?? [id number], [id number] ??- [id number] INDICATIONS: ??HORTON cirrhosis- Feb 2016 TECHNIQUE/SCAN QUALITY: Scan Quality: ??Limitedby ??patient bod y habitus COMPARISON: Abdominal ulttrasound with liver Dopple r interrogation 08/19/15. ------ LIVER: ------ Right Lobe Length: ?? 19.8 ?? cm Echogenicity/Echotexture: ?? Coarse, ec hogenic parenchyma with ? slightly nodular capsule. -------- Lesions: -------- ??# ?Date ?Location ? Description ?L ?AP ? TV (cm) ??1 ?03/06/16 ?Right lobe ?? He mangioma ? 1.6 ?1.3 ?1.5 ??1 ?02/11/15 ?Right lobe ?? He mangioma ? 1.8 ?1.4 ?1.4 ??1 ?08/10/14 ?Right lobe ? Hemangioma ?1.9 ?1.7 ?1.6 Comment: ?Hepatomegaly mild GALLBLADDER: Cholelithiasis: ?No stones visua lized Wall Thickness: ?Normal wall thi ckness Focal Tenderness: ?Negative sonogra phic Morgan's sign BILIARY TRACT: Intrahepatic Ducts: ?? Normal Extrahepatic Ducts: ?? Normal where see n Common Duct Size: ? 5.0 ? mm --------- PANCREAS: --------- Head: ? Poorly visua lized, overlying bowel Tail: ? Not visualiz ed due to overlying bowel Body: ? Poorly visua lized, overlying bowel ------- SPLEEN: ------- Size (cm) ? L: 16.6 ?AP: ??6 .7 ? TV: ??6.4 Vol (ml): ?372.7 Comment: ?Moderate splenomegaly, st able. RIGHT KIDNEY: Size (cm) ? L: 11.9 Cortical Thickness: ?Normal wher e seen Cortical Echogenicity: ?? Normal Hydronephrosis: ?No sonogr aphic evidence Comment: ?Limited visualization LEFT KIDNEY: Size (cm) ? L: 12.7 Cortical Thickness: ?Normal wher e seen Cortical Echogenicity: ?? Normal Hydronephrosis: ?No sonogr aphic evidence Comment: ?Limited visualization ------ AORTA: ------ Comment: ?Not visualized ??due to o verlying bowel gas. ---- IVC: ---- Proximal portion, normal in caliber. FLUID COLLECTIONS: No ascites seen. HEPATIC-PORTAL DUPLEX: ?PSV ?E DV ? RI ??Waveform ? (cm/s) ??(cm/s) Hepatic Artery: ??60.8 ? 12.0 ? 0.8 ??Patent Right Hepatic ? Patent where seen Vein: Middle ?Patent where seen Hepatic Vein: Left Hepatic ?Patent where seen Vein: Main Portal ?35.0 ? Patent Vein: Right Portal ?Patent where seen, Vein: ? hepatopetal Left Portal ? Patent where seen, Vein: ? hepatopetal ?Dire ction of Flow Main Portal ?Hepatopeta l Vein: Collaterals: ??Not visualized Procedure Note Sue Kam MD - 03/06/2016Formatt ing of this note might be different from the original. Abdominal Duplex (Signed Final 03/06/20 01:25 pm) PATIENT INFO: ID #: [id number] : [birth year] (55 y rs) Name: BUCKY BETH Visit Date:03/06 10:36 am PERFORMED BY: Performed By: Nancy Higgins RDMS Attending: Sue Kam MD Referred By: KUNAL NORMAN MD SERVICE(S) PROVIDED: UABDCVASC - Abdominal Complete Survey w [facility] Vascular [id number], [id number] - [id number] INDICATIONS: HORTON cirrhosis- Feb 2016 TECHNIQUE/SCAN QUALITY: Scan Quality: Limitedby patient body giron bitus COMPARISON: Abdominal ulttrasound with liver Dopple r interrogation 08/19/15. ------ LIVER: ------ Right Lobe Length: 19.8 cm Echogenicity/Echotexture: Coarse, echog enic parenchyma with slightly nodular capsule. -------- Lesions: -------- # Date Location Description L AP TV (cm ) 1 03/06/16 Right lobe Hemangioma 1.6 1. 3 1.5 1 02/11/15 Right lobe Hemangioma 1.8 1. 4 1.4 1 08/10/14 Right lobe ?? Hemangioma 1.9 1.7 1.6 Comment: Hepatomegaly mild GALLBLADDER: Cholelithiasis: No stones visualized Wall Thickness: Normal wall thickness Focal Tenderness: Negative sonographic Morgan's sign BILIARY TRACT: Intrahepatic Ducts: Normal Extrahepatic Ducts: Normal where seen Common Duct Size: 5.0 mm --------- PANCREAS: --------- Head: Poorly visualized, overlying keerthi l Tail: Not visualized due to overlying b owel Body: Poorly visualized, overlying keerthi l ------- SPLEEN: ------- Size (cm) L: 16.6 AP: 6.7 TV: 6.4 Vol (ml): 372.7 Comment: Moderate splenomegaly, stable. RIGHT KIDNEY: Size (cm) L: 11.9 Cortical Thickness: Normal where seen Cortical Echogenicity: Normal Hydronephrosis: No sonographic evidence Comment: Limited visualization LEFT KIDNEY: Size (cm) L: 12.7 Cortical Thickness: Normal where seen Cortical Echogenicity: Normal Hydronephrosis: No sonographic evidence Comment: Limited visualization ------ AORTA: ------ Comment: Not visualized due to overlyin g bowel gas. ---- IVC: ---- Proximal portion, normal in caliber. FLUID COLLECTIONS: No ascites seen. HEPATIC-PORTAL DUPLEX: PSV EDV RI Waveform (cm/s) (cm/s) Hepatic Artery: 60.8 12.0 0.8 Patent Right Hepatic Patent where seen Vein: Middle Patent where seen Hepatic Vein: Left Hepatic Patent where seen Vein: Main Portal 35.0 Patent Vein: Right Portal Patent where seen, Vein: hepatopetal Left Portal Patent where seen, Vein: hepatopetal Direction of Flow Main Portal Hepatopetal Vein: Collaterals: Not visualized IMPRESSION Ultrasound Dictation: 1. Evaluation is limited by patient bod y habitus and bowel gas. 2. Stable mild hepatomegaly with coarse , echogenic parenchyma, consistent with reportedly known HORTON cirrhosis. 3. Stable 16 mm right hepatic lobe sam ngioma, as seen on prior 06/04/2014 MRI abdomen. No new sonographically evident hepatic mass identified. 4. Stable moderate splenomegaly. No asc ites. 5. The visualized hepatic veins, visual ized portal veins, and hepatic artery are patent with normal directional flow . 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
--- OUTSIDE RECORDS SUMMARY | 2022-04-11 10:53 | XMS_ITS | Encounter Summary ---
:1960 Author Organization [facility] [place] [address] Care Team Providers Name Role Phone Jazmine Baer MD Primary Care Provider Reason for Visit Reason Onset Date Comments Other 02/14/2016 Encounter Details Date Type Department Care Team Description 02/14/2016 Telephone Neurology at [facility] Henrry Gleason MD [facility] [place] [address] NEUROLOGY DEPT. [phone] [place], [place] [address] (Wo rk) Social History Tobacco Use Types Packs/Day Years Used Date Never Smoker Smokeless Tobacco: Never Used Alcohol Use Standard Drinks/Week Comments No 0 (1 standard drink = 0.6 oz pure alcoho l) Sex Assigned at Date Recorded Not on file documented as of this encounter Miscellaneous Notes Telephone Encounter - Karen Culver - 02/14/2016 2:44 PM EDT Jessica from [employer] called. What is the next step? Is there going to be an appeal? Please call her at [phone] documented in this encounter Plan of Treatment Upcoming Encounters Date Type Specialty Care Team Description 06/19/2022 Office Visit Rheumatology Richi Blackmon MD [facility] DR RHEUMATOLOGY DEP [place], [place] [address] (Wo rk) Scheduled Procedures Name Priority Associated Diagnoses Date/Time EGD, UPPER GI ENDOSCOPY Family hx of colon cance r COLONOSCOPY, DIAGNOSTIC Family hx of colon cance r documented as of this encounter Visit Diagnoses Not on filedocumented in this encounter Care Teams Associate Marketing Manager Relationship Specialty Start Date End Date Jazmine Baer MD PCP - General 11/07/10 [address] [place] [address] documented as of this encounter
--- OUTSIDE RECORDS SUMMARY | 2022-04-11 10:53 | XMS_ITS | Encounter Summary ---
:1960 Author Organization [facility] [place] [place] [address] Care Team Providers Name Role Phone Jazmine Baer MD Primary Care Provider Encounter Details Date Type Department Care Team Description 04/10/2016 Hospital Encounter Outpatient Surgery Anastasia Ignacio , [facility] HEMATOLOGY/ONCOLOGY Drive DEPT. [place] [id number] [phone] [phone] Social History Tobacco Use Types Packs/Day Years Used Date Never Smoker Smokeless Tobacco: Never Used Alcohol Use Standard Drinks/Week Comments No 0 (1 standard drink = 0.6 oz pure alcoho l) Sex Assigned at Date Recorded Not on file documented as of this encounter Last Filed Vital Signs Vital Sign Reading Time Taken Comments Blood Pressure 179/64 04/10/2016 9:46 AM EDT Pulse 62 04/10/2016 9:46 AM EDT Temperature 36.4 ??C (97.5 ??F) 04/10/2016 9:46 AM EDT Respiratory Rate 20 04/10/2016 9:46 AM EDT Oxygen Saturation 99% 04/10/2016 9:46 AM EDT Inhaled Oxygen Concentration - - Weight 120.2 kg (265 lb) 04/10/2016 9:46 AM EDT Height 175.3 cm (5' 9) 04/10/2016 9:46 AM EDT Body Mass Index 39.13 04/10/2016 9:46 AM EDT documented in this encounter Discharge Instructions Discharge InstructionsShayy Coppola RN - 04/10/2016 9:44 AM EDT OUTPATIENT SURGERY POST-OPERATIVE INSTRUCTIONS BONE MARROW BIOPSY SITE 1. You have had a bone marrow aspiration and or/biopsy, which is like having an operation with a tiny, deep incision. 2. Do Not do any strenuous work today, like housework, yard work, sports of any kind or lifting morethan 5 pounds as it may cause your bone marrow site to bleed. 3. To avoid infection, leave the clear plastic dressing on the site for three days. You may shower, bathe, or swim as you wish, provided the clear dressing remains intact, and all sides of the dressingare firmly adhered to the skin. In the unlikely event that a portion or the entire dressing should come off, you may replace it with a conventional cloth band aid. However, you will no longer be able to get the site wet until three days have passed, as a conventional band aid is not waterproof and thesite is no longer a sterile area. 4. It is not unusual for the site to leak a scant amount of blood, so do not be alarmed to see a small collection, or ???puddle?? of blood under the dressing. Wound healing will still occur. 5. If you are uncertain if there is an increase in any leaking from your bone marrow site, roll up atowel, lie down on a firm surface, place the towel directly under the puncture site to apply pressure, and rest there for one half hour. Direct, FIRM thumb pressure applied to the site for 10 minutes works well as an alternative method. Leave the dressing on. 6. Most people do not experience much discomfort after this procedure, but if you do, you should askyour physician what to take. AVOID ASPIRIN PRODUCTS as these interfere with clotting. 7. After three days, remove your dressing and leave it off, so the air can get to the site to finishthe healing process. 8. NOTIFY YOUR DOCTOR FOR: a. Redness b. Heat c. Fever d. Swelling e. Drainage f. Increased pain g. Foul odor (which may not be apparent through the dressing) If you are having problems or have any additional concerns or questions: Between 8am and 5pm - Call the Hematology Clinic at . After 5pm or on a weekend: Call the [facility] bag making machine operator at and ask for the physician mirror fabrication supervisor covering for your doctor. Instructions following sedation You may have received medication before and/or during your procedure, which affects judgement and reaction time. Use caution with stairs. Do not drive, operate machinery, drink alcoholic beverages, or make any legal decisions for 24 hours. You may eat a regular diet as tolerated. Do not smoke if you are alone. IV site -- slight redness, or tenderness is normal, you can use a warm compress. If tenderness and redness increases or foul drainage occurs, please contact your M. D. [address] ??? [place] [address] ??? [phone] ??? [email or web address] ??? [facility] ??? [facility] ??? [facility] documented in this encounter Medications at Time of Discharge Medication Sig Dispensed Refills Start Date End Date furosemide (LASIX) 20 mg Take 1 tablet by 30 tablet 12 03/25 TabletIndications: mouth daily. Myopathy multivitamin Capsule Take 1 capsule by 0 mouth daily. ferrous gluconate Take 240 mg [...] mg Take 5 mg by mouth 0 /2 11/201508/02/2016 Capsule nightly. Reported on 08/02/2016 indomethacin (INDOCIN) [...] documented as of this encounter Progress Notes Shayy Coppola RN - 04/10/2016 10:23 AM EDT Bone marrow BX done without sedation , tolerated well. documented in this encounter H&P Notes Lanie Mcfadden APRN - 04/10/2016 10:06 AM EDT Bucky is here today for a bone marrow biopsy. Local anesthesia only. No changes in H and P dated 03/16/16. We will proceed with planned procedure. documented in this encounter Procedure Notes Lanie Mcfadden APRN - 04/10/2016 10:34 AM EDTAssociated Order(s): ([facility]) UNILAT BONE MARROW BIOSPY; ([facility])BONE MARROW ASP PERFORMED W/BX THRU BX INCISION BONE MARROW BIOPSY AND ASPIRATION PROCEDURE NOTE Bone marrow biopsy with local anesthesia only Consent: Signed and on chart DIAGNOSIS: Thrombocytopenia and Anemia IV ACCESS: Peripheral IV Pre-Procedure: (x) Pt and family educated about bone marrow biopsy and aspiration. (x) Consent signed (scanned into pt's chart) (x) CBC drawn within 3 days. (x) Medications/Allergies/Problem List reviewed Prior to start of procedure the following is verified in a Time Out: (x) Patient identity (x) Planned procedure (x) Safety concerns PAIN INTERVENTION: local Sterile Condition: Chlorohexidine was used to cleanse the biopsy site Sterile drapes were used to create a sterile field. Local Anesthesia: 1 % Lidocaine: total dose = 19 mL w/ 1 mL sodium bicarb PROCEDURE: A bone marrow biopsy and aspiration was performed on the RIGHT posterior iliac crest. Tegaderm dressing placed and pressure applied to site for 30 minutes following the procedure. Estimated Blood Loss: minimal Complications: none Testing: Per bone marrow requisition Follow-up: Written/Verbal instructions for site care reviewed and given to the patient. Encouraged to call with any concerns. Follow-up with Physician as instructed. documented in this encounter Plan of Treatment Upcoming Encounters Date Type Specialty Care Team Description 06/19/2022 Office Visit Rheumatology Richi Blackmon MD [facility] ER DR RHEUMATOLOGY [place], [place] [address] (Wo rk) Scheduled Procedures Name Priority Associated Diagnoses Date/Time EGD, UPPER GI ENDOSCOPY Family hx of colon cance r COLONOSCOPY, DIAGNOSTIC Family hx of colon cance r documented as of this encounter Procedures Procedure Name Priority Date/Time Associated Diagnosis Comme nts CHROMO REPORT ACQUIRED Routine 04/10/2016 4:21 Re sults for PM EDT this procedure are in the results section. ([facility])BONE MARROW Routine 04/10/2016 Resul ts for ASP PERFORMED W/BX THRU 10:36 AM EDT this procedure BX INCISION are in the results section. ([facility]) BONE MARROW Routine 04/10/2016 Resu lts for BIOPSY; DIAGNOSTIC 10:36 AM EDT this proc edure are in the results section. IMMUNOPHENOTYPING FLOW Routine 04/10/2016 Resul ts for CYTOMETRY 10:30 AM EDT this procedure are in the results section. BONE MARROW FINAL REPORT Routine 04/10/2016 Res ults for 10:30 AM EDT this procedure are in the results section. IRON STAIN, BONE MARROW Routine 04/10/2016 Resu lts for 10:30 AM EDT this procedure are in the results section. BONE MARROW PANEL Routine 04/10/2016 ([facility]) 10:30 AM EDT ([facility]) BONE MARROW 04/10/2016 Anemia and BIOPSY; DIAGNOSTIC ([facility] 10:18 AM EDT thrombocytopenia 1.37) ([facility]) BONE MARROW 04/10/2016 Anemia and ASP PERFORMED W/BX THRU 10:18 AM EDT thrombocytopenia BX INCISION (WRVU 0.16) HEMOGRAM Routine 04/10/2016 Results for 10:04 AM EDT this procedure are in the results section. DIFFERENTIAL, AUTOMATED Routine 04/10/2016 Resu lts for 10:04 AM EDT this procedure are in the results section. CBC (WITH DIFF) Routine 04/10/2016 10:04 AM EDT documented in this encounter Results chromo report acquired (04/10/2016 4:21 PM EDT) Component Value Ref Test Analysis Performed At [facility] Range Method Time Signature Cytogenetics Final Report [facility] Acquired Report [facility] ? [id number] HOSPITAL LABORATORY Specimen Type: Bone Marrow Specimen Condition: ~ 3 MLS, SPICULES Collection Date/Time: 04/10/2016 10:30 Received Date/Time: 04/11/2016 11:22 Indication: Cytopenias ---Results--- Normal karyotype ---Karyotype--- 46,XY[20] ---Preparation--- Culture Type: 24 and 48 hour short term cultures Days in Culture: 2 Banding Method: G-banding Banding Level: 400-450 bands FISH Method: ??N/A ---Analysis--- Cultures Analyzed: 2 Metaphase Cells Counted: ??20 Metaphase Cells Analyzed: ??20 Metaphase Cells Karyotyped: ??2 ---Interpretation--- Cytogenetic analysis revealed a normal male karyotype of 46, XY. No clonal abnormalities were observed. ---Comments--- Correlation of this result with clinical presentations and other laboratory studies is recommended. 11.22.16 (Electronic Signature) Verified By: Lawrence FONSECA, Ph.D., [facility] Director, Cytogenetics Specimen (Source) Anatomical Collection Method Collection Time Re ceived Time Location / / Volume Laterality 04/10/2016 4:21 PM EDT Jessica Valerio MD HEMATOLOGY ORDERABLES Performing Organization Address City/State/ZIP [place] [address] ([facility])BONE MARROW ASP PERFORMED W/BX THRU BX INCISION (04/10/2016 10:36 AM EDT) Narrative Lanie Mcfadden APRN - 04/10/2016 1 0:36 AM EDT Lanie Mcfadden APRN ? 04/10/2016 10:36 AM ? BONE MARROW BIOPSY AND ASPIRATION PROCEDURE NOTE ? Bon e marrow biopsy with local anesthesia only Consent: ?? Signed and on chart DIAGNOSIS: Thrombocytopenia and Anemia IV ACCESS: Peripheral IV Pre-Procedure: (x) Pt and family educated about bone ma rrow biopsy and aspiration. (x) Consent signed (scanned into pt's ch art) (x) CBC drawn within 3 days. (x) Medications/Allergies/Problem List r eviewed Prior to start of procedure the followin g is verified in a Time Out: (x) Patient identity (x) Planned procedure (x) Safety concerns PAIN INTERVENTION: local ?? Sterile Condition: ??Chlorohexidine was used to cleanse the biopsy site ?Sterile dr castaneda were used to create a sterile field. Local Anesthesia: 1 % Lidocaine: total d ose = 19 mL w/ 1 mL sodium bicarb PROCEDURE: A bone marrow biopsy and aspi ration was performed on the RIGHT posterior iliac crest. ? Tegaderm dressing placed and pressure ap plied to site for 30 minutes following the procedure. Estimated Blood Loss: minimal Complications: none Testing: ??Per bone marrow requisition Follow-up: ??Written/Verbal instructions for site care reviewed and given to the patient. Encouraged to call with any concerns. Follow-up with Physician as instructed. Jayden Ignacio MD GENERAL SURGICAL ORDERABLES ([facility]) UNILAT BONE MARROW BIOSPY (04/10/2016 10:36 AM EDT) Narrative Lanie Mcfadden APRN - 04/10/2016 1 0:36 AM EDT Lanie Mcfadden APRN ? 04/10/2016 10:36 AM ? BONE MARROW BIOPSY AND ASPIRATION PROCEDURE NOTE ? Bon e marrow biopsy with local anesthesia only Consent: ?? Signed and on chart DIAGNOSIS: Thrombocytopenia and Anemia IV ACCESS: Peripheral IV Pre-Procedure: (x) Pt and family educated about bone ma rrow biopsy and aspiration. (x) Consent signed (scanned into pt's ch art) (x) CBC drawn within 3 days. (x) Medications/Allergies/Problem List r eviewed Prior to start of procedure the followin g is verified in a Time Out: (x) Patient identity (x) Planned procedure (x) Safety concerns PAIN INTERVENTION: local ?? Sterile Condition: ??Chlorohexidine was used to cleanse the biopsy site ?Sterile dr castaneda were used to create a sterile field. Local Anesthesia: 1 % Lidocaine: total d ose = 19 mL w/ 1 mL sodium bicarb PROCEDURE: A bone marrow biopsy and aspi ration was performed on the RIGHT posterior iliac crest. ? Tegaderm dressing placed and pressure ap plied to site for 30 minutes following the procedure. Estimated Blood Loss: minimal Complications: none Testing: ??Per bone marrow requisition Follow-up: ??Written/Verbal instructions for site care reviewed and given to the patient. Encouraged to call with any concerns. Follow-up with Physician as instructed. Jayden Ignacio MD GENERAL SURGICAL ORDERABLES Bone Marrow Final Report (04/10/2016 10:30 AM EDT) Component Value Ref Test Analysis Performed At [facility] gist Range Method Time Signature Bone Marrow [id number] ?Location: [facility] Final Report [place] The signing pathologist has (i) examined the relevant preparation(s) for the [facility] specimen(s) and (ii) rendered or confirmed the diagnosis(es) . HOSPITAL LABORATORY . ?[facility]ole[facility] lar Genetics RESULTS DIAGNOSIS 1. ??Anemia, thrombocytopenia since 2013, by history. 2. ??Hypercellular marrow wi th maturing trilineage hematopoiesis. No diagnostic features of dysplasia or he matolymphoid malignancy are seen. ??Cytogenetics pending. Iron stores decreased. Myeloid Sequencing Panel (54-Gene Panel) SPECIMEN ANALYZED: ??[id number] Analysis: ?? Examination of DNA extracte d from peripheral blood or bone marrow aspirates for somatic mutation analysis. Results: ?? No gene variants were identified in the submitte d sample. VARIANTS DETECTED: N/A Interpretation: ?? After rev iew of the pathology report, the specimen ([id number]) was selected for mutation fernanda sis with a panel of 54 genes. ??The results of this test indicate that the tissue sp ecimen analyzed was normal for hotspots in 54 genes. Therapeutic options related to the presence or a bsence of mutations should be carefully assessed. Availab ility of other therapeutic indications and clinical trials may be possible. For additional information on clinically actionable variants, please visit the following websites: http://www.mycancergenome.org http://www.nccn.org/professionals/physician_gls/f_guidelines .asp http://evs.gs.street.edu/EVS/ http://www.ncbi.nlm.nih.gov/clinvar/ http://www.ncbi.nlm.nih.gov/snp . RESULTS Methods: ??Genomic DNA was e xtracted from peripheral blood or bone marrow aspirates. DNA sequencing was performed using the [employer] Myeloid Panel ([employer]) that contains of 54 genes associ ated to myeloid diseases, such as acute myeloid leukemia (AML), myelodysplastic synd mckenna (MDS), myeloproliferative neoplasms (MPN), chronic myelogenous leukemia (CML), chronic myelomonocy tic leukemia (CMML), juvenile myelomonocytic leukemia (JMML). ??Seque nces were aligned to the hg19 (GRCh37) reference genome. ??Next-ge neration sequencing analysis of these genes was further confirmed by other assays during valida tion in our CLIA-certified laboratory. The genes assessed by the [employer] Myeloid Panel include: ?ABL1 , ASXL1, ATRX, BCOR , BCORL1 , BRAF, CALR, CBL , CBLB, CBLC, CDKN2A , CEBPA, CSF3R, CUX1 , DNMT3A, ETV6/ TEL , EZH2, FBXW7, FLT3 , GA TA1, GATA2, GNAS , HRAS, IDH1, IDH2, ??IKZF1, JAK2, JAK3, KDM6A , KIT, KRAS, MLL , MP L, MYD88, NOTCH1 , NPM1, NRAS, PDGFRA , PHF6, PTEN, PTPN11 , RAD21 , RUNX1, SETBP1 , SF3 B1, SMC1A, SMC3 , SRSF2, STAG2, TET2 , TP53, U2AF1, WT1, and ??ZRSR2. While DNA testing is very ac curate, rare diagnostic errors due to various pre- and post-analytical variables d o occur. This test was developed and its performance determined by the Laborator y for Clinical Genomics and Advanced Technology (CGAT) in the Department of Pathology at [facility]. It has not been cleared or approved by the U.S. Food and Drug Administratio n. This test is used for clinical purposes and should not be considered as investigat ional or for research purposes. The [facility] is certified by the Clinical Laboratory Imp rovement Act of 1988 and as such is allowed to perform high complexity clinical testing. Genes associated with Myeloid Diseases: AML: ??CEBPA, FLT3, KIT , NPM1. Additional genes associated with prognosis: ??ASXL1, DNMT3A , IDH1, IDH2, MLL , PHF6, RUNX1, TET2 MDS: ??ASXL1, CBL, DNMT3A , ETV6, ETV6/TEL, EZH2 , GATA2, IDH1, IDH2 , JAK2, KRAS, NPM1 , NRAS , RAD21, RUNX1, SETBP1 , SF3B1, SMC3, ??SRSF2, STAG2, TET2, ??TP53, U2AF1, ZRSR2 MPN: ??CALR, JAK2, MPL (PV: Polycythemia Vera and PMF: Primary Myelofibrosis), ?JAK2 (ET: Essential Thrombocythe nupur), ?? CSF3R (Chronic Neutrophilic Leukemia), ?? SETBP1 (Atypical CML), ??PDGFRA ?? (Hypereosinophilic Leukemia), ??KIT (Mast Cell). Genes associated with prognosis: ?? ASXL1, DNMT3A , E ZH2, IDH1, IDH2, SRSF2 , TET2 CMML: ??ASXL1, CBL, DNMT3A , EZH2, FLT3, IDH1 , IDH2, JAK2, KRAS, ??NRAS, RUNX1, SETBP1 , SF3A1 , SF3B1, SRSF2, ??TET2, TP53, U2AF1, ZRSR2 JMML: ??ASXL1, CBL, FLT3 , JAK3, KRAS, NRAS, ??PTPN11, SETBP 1, SRSF2 Clinical Disclaimer: ?? Muta tions in these genes may be associated with one or more myeloid neoplasms but are not necessari ly diagnostic for a specific disorder. Correlation with morphologic, immunophenotypic, clinical and other data is encouraged for comprehensiv e diagnostic evaluation. This test should not be used alone for a diagnosis of ma lignancy, and is not intended to detect minimal residual disease. Assay Limitations : (1) The [employer] Myeloid Panel provides 95% coverage of all targeted regions. Some regions in the following genes are compromised by low coverage ??DNMT3A, GATA2 , RUNX1, SMC3, STAG2 , and TET2. (2) Mutations outside of the targeted genes and below th e limit of detection will not be detected. (3) Large frameshift mutations common in the ?? CALR and ??FLT3 genes cannot be detected by this panel. Samples are concurre ntly tested for CALR Exon 9 Frameshift Mutation Analysis using a separate fragment a nalysis assay. For positive samples, a separate molecular genetics report will be iss ued. For FLT3 screening, an additional report will be generated if ordered. . RESULTS References : Castro et al, J Clin Oncol, 2012; Desmond et al, NEJ, 2012; Karen, Best Practice ??& Research Clini carlos Haematology, 2013; Leukemia Research 2013; Joey et al, Blood 2013; Gabby and Reza, Curr Hematol Malig Rep, 2013; Adrián and Miguel, Blood, 2014; Nishant g et al, Blood, 2014; Mel et al, [place] Journal of Haematology, 2014; Sylvie et al, NE, 2015. Reviewed by: Sarah Kendall, PhD, [facility]-[employer] ?06/04/16 13:40 Reviewed by: Jaxson quiroz, PhD, [facility], Director-[facility] ([facility],06/12/16 09:15) Electronically signed by: ??Calos Cotto MD Verified: ??07/11/2016 ?Hematopathologist ? Bone Marrow Final DIAGNOSIS 1. ??Anemia, thrombocytopenia since 2012, by history. 2. ??Hypercellular marrow wi th maturing trilineage hematopoiesis. No diagnostic features of dysplasia or he matolymphoid malignancy are seen. ??Cytogenetics pending. Iron stores decreased. See discussion. Electronically signed by: ??Calos Cotto MD Verified: ??04/12/2016 ?Hematopathologist DISCUSSION Flow analysis shows no abber ant B-cell, T-cell or blasts population and supports the above finding. Noted is a history of persistent cytopenias since 2012, However the marrow still does not s how diagnostic features of a hematolymphoid neoplasm. Molecular studies for 54 gene panel are ongoing. ??Separate report to follow. PERIPHERAL SMEAR WBC 4.5K/ul; RBC 3.1x10 ??6/ul; Hgb 8.6; MCV 86.9; RDW 16.4; PLT 83K/ul There is significant anemia with moderate anisopoikilocytosis with elliptocytes, dacrocytes, macrocytes, kaylynn rocytes seen. The granulocytes include occasional hypo segmented forms. Platelets are decreased by show normal mor phology. BONE MARROW ASPIRATE The bone marrow aspirate is adequate. ??It is cellular with granulocyte:erythroid ratio of 2:1. ??Erythroid p recursors show normoblastic maturation. ??Granulocytic precursors show normal maturation. ??Megakaryoc ytes are normal in number and morphology. ??Lymphocytes a nd plasma cells are normal. ??Iron stain performed and shows that iron stores are ?? decreased. ??No ringed sideroblasts are seen. DIFFERENTIAL Neutrophils/bands 30%, Lymph ocytes 6%, Monocytes 1%, Eosinophils 6%, Basophils 0%, Metamyelocytes 4%, Myelocyt es 8%, Promyelocytes 3%, Blasts 1%, Erythroid precursors 41%, Plasma cells 0%. BONE MARROW BIOPSY and/or CLOT The adequate decalcified bon e marrow biopsy is slightly hypercellular (60-70%). ??The erythroid precursors are nu merically normal to slightly increased. ??The granulocytic precursors are numerically normal with normal maturation. ??Megakaryocytes are adequate in number. ??Lymph oid aggregates are not seen. ??Plasma cells are not increased. ??Granulomas are not identified. ??Bony spicules appear normal for age. CLINICAL INFORMATION Specimen: Bone marrow aspirate and biopsy, right Clinical Diagnosis: ? Anemia, Thrombocytopenia since 201 3 Indication for Study: ?? ? myelodysplasia . ?Rajat w Cytometry DIAGNOSIS Normal immunophenotyping res ults. No monotypic B-cell population or phenotypically abnormal T-cell population or increase in blasts is detecte d. see discussion Electronically signed by: ??Kirti FONSECA, Calos Verified: ??04/11/2016 ?Hematopathologist DISCUSSION Blasts based on CD45 express ion and orthogonal light scatter, are not increased. The CD19 positive B-cells have a polytypic expression of surface immunoglobulin light chain (Vaiva Vo:Lambda ratio a t 2.3). The T-cells are an admixture of CD4+ and CD8+ T lymphocytes (ratio of 0.8). No loss or atypical intensity distributions are seen for any prater T antigen (CD2, 3, 4+8, 5, 7). There is no increase in NK45-zzapmxyr/CD3-neg NK cells or CD3+/Cd56+ abberant T cells. Flow analysis is an ancillar y study. A definite diagnosis requires correlation with the morphologic features of thi s process and if necessary, correlation with other ancillary studies like immunohistoche loulou, enzyme cytochemistry and/or cyto/molecular genetics. This test was developed and its performance characteristics determined by the Clinical Flow Cytometry Laboratory a t [facility]. It has not been cleared or approved by the U.[place]. [place] d and Drug Administration. ??The FDA has determined that such clearance or approval is not necessary. ??This test is used for clinical purposes. ??It should not be regarded as investigational or for research. ??This laboratory is certified under the Clinica l Laboratory Improvement Act of 1988 (CLIA) as qualified to perform high complexity clinical laboratory testing. SPECIMEN PROCESSING [id number] Cells for immunophenotypic a nalysis were derived from bone marrow. ??CD45 vs side scatter gating was utilized to iden tify a lymphoid analysis region that comprises approximately 3% of all cells. The following markers were a ssessed: CD2, CD3, CD4, CD5, CD7, CD8, CD10, CD19, CD45, CD56, kappa light chain, and lambda light chain. CLINICAL INFORMATION cytopenia Specimen (Source) Anatomical Collection Method Collection Time Re ceived Time Location / / Volume Laterality 04/10/2016 10:30 AM EDT Jessica Valerio MD PATHOLOGY/CYTOLOGY ORDERABLE S Performing Organization Address City/[facility] Phon e Number [address] Immunophenotyping Flow Cytometry (04/10/2016 10:30 AM EDT) Component Value Ref Test Analysis Performed At [facility] Range Method Time Signature Immunophenotyping See [facility] LABORATORY Comment: When completed by the Pathologist, the F low Cytometry Report ([id number]) will display under the Pathology Results se ction within eDH. Specimen Anatomical Collection Method Collection Time Receive d Time (Source) Location / / Volume Laterality Bone marrow 04/10/2016 10:30 04/10/2016 specimen AM EDT 11:36 AM EDT (specimen) Resulting Agency Comment Spec In Lab Jayden Ignacio MD HEMATOLOGY ORDERABLES Performing Organization Address City/[facility]/[place] [address] Iron Stain, Bone Marrow (04/10/2016 10:30 AM EDT) Patholo gist Method Time Signature Iron Stain BM See Comment [facility] Comment: See Bone Marrow Report [id number] under Hematopathology Reports. Specimen Anatomical Collection Method Collection Time Receive d Time (Source) Location / / Volume Laterality Bone marrow 04/10/2016 10:30 04/10/2016 specimen AM EDT 11:36 AM EDT (specimen) Resulting Agency Comment Spec In Lab Jayden Ignacio MD HEMATOLOGY ORDERABLES Performing Organization Address City/State/ZIP Code Phon e Number [address] (ABNORMAL) Differential, Automated (04/10/2016 10:04 AM EDT) [facility] Method Time Signature Neutrophils % 73.7 % [facility] Neutr Abs (ANC) 3.33 1.70 - [facility] 6.10 [facility] x10(3)/[facility] LABORATORY Lymphocytes % 15.3 % [facility] Lymphocytes Abs 0.7 (L) 0.9 - 3.2 [facility] x10(3)/[facility] LABORATORY Monocytes % 7.5 % [facility] Monocyte Abs 0.3 0.3 - 0.9 [facility] x10(3)/[facility] LABORATORY Eosinophils % 2.7 % [facility] Eosinophils Abs 0.1 0.0 - 0.4 [facility] x10(3)/[facility] LABORATORY Basophils % 0.4 % [facility] Basophils Abs 0.0 0.0 - 0.1 [facility] x10(3)/[facility] LABORATORY Immature Gran % 0.40 % [facility]BS [...] Tamara Gran Abs 0.02 0.00 - 0.04 x10(3)/[facility] Y [facility] LABORATORY Specimen Anatomical Collection Method Collection Time Receive d Time (Source) Location / / Volume Laterality Blood specimen 04/10/2016 10:04 6 (specimen) AM EDT 11:33 AM EDT Resulting Agency Comment Spec In Lab Jayden Ignacio MD HEMATOLOGY ORDERABLES Performing Organization Address City/[facility]/[place] [address] (ABNORMAL) Hemogram (04/10/2016 10:04 AM EDT) Analysis Performed At Patho logist Time Signature WBC 4.5 4.0 - 9.5 [facility] x10(3)/[facility] LABORATORY RBC 3.13 (L) 4.58 - [facility] 5.54 [facility] x10(6)/[facility] LABORATORY Hemoglobin 8.6 (L) 13.7 - [facility] 16[facility] gm/dL [facility] Hematocrit 27.2 (L) 40.5 - [facility] 48.5 % [facility] MCV 86.9 82.9 - [facility] 93.1 [facility] LABORATORY MCH 27.5 27.5 - [facility] 32.1 pg [facility] MCHC 31.6 (L) 32.0 - [facility] 35.7 gm/dL [facility] Platelets 83 (L) 145 - 357 [facility] x10(3)/[facility] LABORATORY RDWSD 51.4 (H) 36.0 - [facility] 45.0 [facility] LABORATORY RDWCV 16.4 (H) 11.4 - [facility] 13.8 % [facility] MPV 11.9 7.6 - 12.9 [facility] LABORATORY nRBC % Auto 0.0 % [facility] LABORATORY nRBC Abs Auto 0.000 0.000 - [facility] 0.000 [facility] x10(3)/[facility] LABORATORY Specimen Anatomical Collection Method Collection Time Receive d Time (Source) Location / / Volume Laterality Blood specimen 04/10/2016 10:04 6 (specimen) AM EDT 11:33 AM EDT Resulting Agency Comment Spec In Lab Jayden Ignacio MD HEMATOLOGY ORDERABLES Performing Organization Address City/State/ZIP Code Phon e Number [address] documented in this encounter Visit Diagnoses Not on filedocumented in this encounter Active and Recently Administered Medications Times are shown in EDT. No Frequency Medication Order 04/08/2016 04/09/2016 04/10/2016 heparin, porcine (PF) 1,000 unit/mL injection 1015 (Due) 1 dose, Starting Sat04/10/16 at 1005, Un til e 04/10/16 at 2214, SHAYY COPPOLA: cabinet override lidocaine (PF) (XYLOCAINE) 10 mg/mL (1 %) injection 1015 (Due) 1 dose, Starting Sat04/10/16 at 1005, Un til e 04/10/16 at 2214, SHAYY COPPOLA: cabinet override sodium bicarbonate 10 mEq/10 mL (8.4 %) Syrg 1015 (Due) Starting Sat04/10/16 at 1004, For 1 dose, SHAYY COPPOLA: cabi net override documented in this encounter Care Teams Medical Affairs Director Relationship Specialty Start Date End Date Jazmine Baer MD PCP - General 11/07/10 [address] [place] [address] documented as of this encounter
--- OUTSIDE RECORDS SUMMARY | 2022-04-11 10:53 | XMS_ITS | Encounter Summary ---
:1960 Author Organization [facility] [place] [address] Care Team Providers Name Role Phone Jazmine Baer MD Primary Care Provider Reason for Visit Auth/Cert Specialty Diagnoses / Procedures Referred By Contact Refer red To Contact Diagnoses anemia ssess for varices, history of HORTON cirrhosis Procedures PRO UPPER GI ENDOSCOPY, DIAGNOSTIC EGD, UPPER GI ENDOSCOPY Referral ID Status Reason Start Date Expiration Date Visits Requ ested Visits Authorized [id number] 1 1 Encounter Details Date Type Department Care Team Description 08/30/2015 Surgery Gastroenterology at [facility] [place] Anastasia Mccauley, EGD, UPPER GI [facility] Hilda shafer [place] [address] [facility] [phone] GASTROENTEROLOGY DEPT. [place], [place] [address] Social History Tobacco Use Types Packs/Day Years Used Date Never Smoker Smokeless Tobacco: Never Used Alcohol Use Standard Drinks/Week Comments No 0 (1 standard drink = 0.6 oz pure alcoho l) Sex Assigned at Date Recorded Not on file documented as of this encounter Last Filed Vital Signs Vital Sign Reading Time Taken Comments Blood Pressure 146/61 08/30/2015 4:35 PM EDT Pulse 60 08/30/2015 4:35 PM EDT Temperature - - Respiratory Rate 17 08/30/2015 4:25 PM EDT Oxygen Saturation 98% 08/30/2015 4:35 PM EDT Inhaled Oxygen Concentration - - Weight - - Height - - Body Mass Index - - documented in this encounter Discharge Instructions Discharge InstructionsNoemy Baker RN - 08/30/2015 4:36 PM EDT UPPER GI ENDOSCOPY WHAT TO EXPECT AFTER THE PROCEDURE After the test you may feel a little more gassy or bloated than usual, this is normal. ACTIVITY Because of the sedation that you received Your judgement and reaction time are affected ?? Go home and rest quietly for the remainder of the day. You may resume your normal activities tomorrow. ?? Change from one position to the next slowly. You may lose your balance unexpectedly Be careful on stairs, as you may be unsteady on your feet. FOR THE NEXT 24 HRS ?? DO NOT DRIVE OR OPERATE ANY MACHINERY ?? DO NOT DRINK ALCOHOLIC BEVERAGES ?? DO NOT SIGN LEGAL DOCUMENTS ?? If you are a smoker: DO NOT SMOKE WHILE YOU ARE ALONE Diet ?? Start by eating small portions of foods that ordinarily will not upset your stomach. Be gentle with what you choose to start with. ?? Drink plenty of fluids ( unless otherwise told not to) Medications You may have a mild sore throat. Ice chips, popsicles, over the counter throat lozenges or spray may help numb your throat. This procedure should not cause a fever. IV SITE-- slight redness or tenderness is normal, you can use warm compresses if you get concerned.If the tenderness +/or redness increases or foul drainage and a red streak occurs, please contact your PCP immediately. WHEN SHOULD YOU CALL FOR HELP? Call 911 anytime you think that you need emergency care. For example, call if: You passed out (lost consciousness). You cough up blood. You vomit blood or what looks like coffee grounds. You pass maroon or very bloody stools. Call your healthcare provider or seek immediate medical attention if: You have trouble swallowing. You have belly pain. Your stools are black or tarlike or have streaks of blood. You are sick to your stomach or cannot keep fluids down. Watch closely for changes in your health, and be sure to contact your doctor IF Your throat still hurts after a day or two You do not get better as expected. Saturday-Saturday Same Day Endo [phone] 7a-8p Otherwise contact [phone] and ask to speak to the bonding machine operator iron melter Follow-up care is a mendez part of your treatment and safety. Be sure to make and go to all appointments, and call your doctor if you are having problems. Instructions have been reviewed and patient expresses understanding documented in this encounter Medications at Time of Discharge Medication Sig Dispensed Refills Start Date End Date furosemide (LASIX) 20 Take 1 tablet by mouth 30 tablet 12 mg TabletIndications: daily. Myopathy multivitamin Capsule Take 1 capsule by mouth 0 daily. terazosin (HYTRIN) 2 Take 2 mg by mouth 0 016 10/13/2015 mg Capsule nightly. UNABLE TO FIND IVIG every month for 2 0 03/16/2016 days insulin glargine Inject 25 Units 10 mL 12 07/13/201412/2015 (LANTUS) Solution subcutaneously nightly. insulin lispro Inject 2-4 Units 10 mL 12 07/13/20140 12/2015 (HUMALOG) Solution subcutaneously 3 times daily (with meals). omeprazole (PRILOSEC) Take 1 capsule by mouth 90 capsule 3 0 09/03/2013 12/25/2017 40 mg capsule daily. indomethacin Take 25 mg by mouth 2 0 0 10/13/2015 (INDOCIN) 25 mg times daily (with capsule meals). As needed ondansetron (ZOFRAN) Take 1 tablet by mouth 20 tablet 3 02/201402/29/2020 4 mg tablet as needed. lisinopril-hydrochlor Take 2 tablets by mouth 0 05/02/2021 othiazide daily. (PRINZIDE;ZESTORETIC) 20-12.5 mg per tablet atenolol (TENORMIN) Take 50 mg by mouth 0 10/13/2015 100 mg tablet daily. documented as of this encounter H&P Notes Anastasia Mccauley MD - 08/30/2015 3:35 PM EDT Gastroenterology and Hepatology Pre-Procedure History and Physical Exam Procedure:Upper endoscopy +/- banding Indication: 55M with HORTON cirrhosis, found to have a normacytic anemia. On beta blockers. Assess foresophageal varices. Patient Active Problem List Diagnosis Code ??? Myopathy G72.9 ??? Nausea and vomiting R11.2 ??? Diabetes mellitus type II E11.9 ??? Hepatosplenomegaly R16.2 ??? Durand's esophagus K22.70 ??? Nonalcoholic steatohepatitis (HORTON) K75.81 ??? Anemia D64.9 ??? Skin rash R21 ??? Imbalance R26.89 EXAM: HEENT: Airway examined, oropharynx clear Mallampati [...] Richi Blackmon MD [facility] ER DR RHEUMATOLOGY [place], [place] [address] (Wo rk) Scheduled Procedures Name Priority Associated Diagnoses Date/Time EGD, UPPER GI ENDOSCOPY Family hx of colon cance r COLONOSCOPY, DIAGNOSTIC Family hx of colon cance r documented as of this encounter Procedures Procedure Name Priority Date/Time Associated Comments Diagnosis EGD, UPPER GI 08/30/2015 4:10 PM Liver cirrhosis ENDOSCOPY EDT secondary to HORTON POCT FINGERSTICK Routine 08/30/2015 3:48 PM Resul ts for this GLUCOSE EDT procedure are i n the results section. UPPER GI ENDOSCOPY Routine 08/30/2015 3:42 PM Res ults for this EDT procedure are i n the results section. POCT GLUCOSE Routine 08/30/2015 3:40 PM Results f or this EDT procedure are i n the results section. documented in this encounter Results POCT Fingerstick Glucose (08/30/2015 3:48 PM EDT) P athologist Signature POC Glucose 103 60 - 199 mg/dl Specimen (Source) Anatomical Collection Method Collection Time Re ceived Time Location / / Volume Laterality 08/30/2015 3:48 PM EDT Anastasia Mccualey MD POINT OF CARE TEST ORDERABLE S UPPER GI ENDOSCOPY (08/30/2015 3:42 PM EDT) Component Value Ref Test Analysis Performed At [facility] Range Method Time Signature UPPER GI [facility] ENDOSCOPY Endoscopy Patient Name: Bucky Acevedo ? Procedure Date: 08/30/2015 3:42 PM ? Date of : 1960 ? Age: 55 ? Order #: [id number] ? Procedure: ? Upper GI endoscopy Indications: ? Screening procedure, Anemia, histor y ? of HORTON cirrhosis. Providers: ? Sue Ceballos ? Kinza Hwoell T echnician Referring MD: ?Jazmine Baer MD Medicines: ? Midazolam 4 mg IV, Fentanyl 150 ? micrograms IV [...] and informed consent was obta ined. ? - Patient identification and proposed ? procedure were verified prior to the ? procedure by the physician lauryn gannon the ? nurse. The procedure was veri fied in ? the pre-procedure area in the ? procedure room. ? - Pre-procedure physical exam ination ? revealed no contraindications to ? sedation. ? - ASA Grade Assessment: II - A ? patient with mild systemic di sease. ? - After reviewing the risks a nd ? benefits, the patient was davida med in ? satisfactory condition to und ergo the ? procedure. ? - The anesthesia plan was to use ? moderate sedation/analgesia ? (conscious sedation). ? - Immediately prior to admini stration ? of medications, the patient w as ? re-assessed for adequacy to r eceive ? sedatives. ? The procedure, indications, b enefits, ? risks and alternatives were e xplained ? to the patient. Specifically ? discussed were potential ? complications including, but not ? limited to, bleeding, perfora tion, ? infection, missing a cancer, and ? adverse medication reactions. The ? Endoscope was introduced thro h the ? and advanced to the. The thierry ent ? tolerated the procedure well. The ? patient tolerated the procedu re well. ? Findings: ? The upper third of the esophagus, middle third of the ? esophagus and lower third of the esophagus were ? normal. 2 cm length of Durand esophagus seen. z line ? was GEJ was at 41cm. ? Small food particles seen along the greater curvature ? of the stomach. The gastric body, gastric antrum, ? cardia (on retroflexion) and gastric fundus (on ? retroflexion) were normal. ? The duodenal bulb, first part of the duodenum, 2nd ? part of the duodenum and 3rd part of the duodenum ? were normal. ? Impression: ?- Normal esophagus ? - 2cm Durand's esophagus ? - Normal stomach ? - Normal duodenum Recommendation: ?No obvious cause for anemia. No ? evidence of portal gastropath y or ? varices ? Anastasia Mccauley Anastasia Mccauley, 08/30/2015 4:30 PM This report has been signed electronically. Number of Addenda: 0 Note Initiated On: 08/30/2015 3:42 PM Specimen (Source) Anatomical Collection Method Collection Time Re ceived Time Location / / Volume Laterality 08/30/2015 3:42 PM EDT Jazmine Baer MD GENERAL SURGICAL ORDERABLES Performing Organization Address City/State/ZIP Code Phon e Number [facility] POCT Glucose (08/30/2015 3:40 PM EDT) P athologist Signature POC Glucose 103 65 - 199 [facility] mg/dL [facility] Comment: Supplemental ranges: <140 mg/dL before meals <180 mg/dL all other times of the day Specimen Anatomical Collection Method Collection Time Receive d Time (Source) Location / / Volume Laterality Blood specimen 08/30/2015 3:40 PM 016 3:40 (specimen) EDT PM EDT Anastasia Mccauley MD POINT OF CARE TEST ORDERABLE S Performing Organization Address City/State/ZIP Code Phon e Number [place] [phone] documented in this encounter Visit Diagnoses Diagnosis 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 Other chronic nonalcoholic liver disease documented in this encounter Administered Medications Inactive Administered Medications - up to 3 most recent administrations Medication Order MAR Action Action Date Dose Rate Site fentaNYL 50 mcg/mL multi-dose Given 08/30/2015 4:19 PM EDT 50 mc g Right Arm injection ONCE PRN, Starting on 08/30/15 at 1612, Until Tu08/30/15 at 1857, Intra-Operative (Intra-Procedure), Routine Given 08/30/2015 4:16 PM EDT 50 mcg Right Arm Given 08/30/2015 4:12 PM EDT 50 mcg Right Arm midazolam (PF) (VERSED) 1 mg/mL Given 08/30/2015 4:19 PM EDT 1 m g Right Arm multi-dose injection ONCE PRN, Starting on 08/30/15 at 1612, Until 08/30/15 at 1857, Intra-Operative (Intra-Procedure), Routine Given 08/30/2015 4:16 PM EDT 1 mg Right Arm Given 08/30/2015 4:12 PM EDT 2 mg Right Arm documented in this encounter Active and Recently Administered Medications Times are shown in EDT. PRN Medication Order 08/28/2015 08/29/2015 08/30/2015 fentaNYL 50 mcg/mL multi-dose injection (CANCELED) 1612 (Given - Provider: Sue Howell RN)1615 (Given - Provider: Sue Howell, WES)161 (Given - Provider: Sue Howell RN) ONCE PRN, Starting 08/30/15 at 1612, Until 08/30/15 at 1857, Intra- Operative (Intra-Procedure), Routine midazolam (PF) (VERSED) 1 mg/mL multi-dose injection (CANCELED) 1611 (Given - Provider: Sue Howell RN)1615 (Given - Provider: Sue Howell RN)1618 (Given - Provider: Sue Howell RN) ONCE PRN, Starting 08/30/15 at 1612, Until Tu08/30/15 at 1857, Intra- Operative (Intra-Procedure), Routine documented in this encounter Care Teams Education Sales Consultant Relationship Specialty Start Date End Date Jazmine Baer MD PCP - General 11/07/10 [address] [place] [address] documented as of this encounter
--- OUTSIDE RECORDS SUMMARY | 2022-04-11 10:53 | XMS_ITS | Encounter Summary ---
:1960 Author Organization [facility] [address] Care Team Providers Name Role Phone Jazmine Baer MD Primary Care Provider Encounter Details Date Type Department Care Team Description 04/10/2016 Surgery Outpatient Surgery Jayden Ignacio, ([facility] MSURG) BONE Center Fiona Avery MD MARROW ASP PERFORMED [facility] DR W/BX THRU BX INCISION [facility] HEMATOLOGY/ONCOLOGY (W RVU 0.16) [place] [address] [place], [place] [id number] [phone] (Wo rk) Social History Tobacco Use Types [...] in this encounter Discharge Instructions Discharge InstructionsShayy Reynaga RN - 04/10/2016 9:44 AM EDT OUTPATIENT [...] 5pm or on a weekend: Call the [facility] link wire fabric machine operator at and ask for the physician transportation logistics internship covering for your doctor. Instructions following sedation [...] occurs, please contact your M. D. [address] ??? [place] [address] ??? [phone] ??? [email or web address] [employer] ??? [facility] ??? [facility] ??? [facility] documented in this encounter Medications at Time [...] as of this encounter Progress Notes Shayy Reynaga RN - 04/10/2016 10:23 AM EDT Bone [...] Richi Blackmon MD [facility] [address] RHEUMATOLOGY [place], [place] [address] (Wo rk) Scheduled Procedures Name Priority Associated Diagnoses Date/Time EGD, UPPER GI ENDOSCOPY Family hx of colon cance r COLONOSCOPY, DIAGNOSTIC Family hx of colon cance r documented as of this encounter Procedures Procedure Name Priority Date/Time Associated Diagnosis Comme nts CHROMO REPORT ACQUIRED Routine 04/10/2016 4:21 Re sults for PM EDT this procedure are in the results section. ([facility]BONE MARROW Routine 04/10/2016 Resul ts for ASP PERFORMED W/BX THRU 10:36 AM EDT this procedure BX INCISION are in the results section. ([facility] BONE MARROW Routine 04/10/2016 Resu lts for [...] results section. BONE MARROW PANEL Routine 04/10/2016 ([facility]/CGP/APD) 10:30 AM EDT ([facility] MSURG) BONE MARROW 04/10/2016 Anemia and BIOPSY; DIAGNOSTIC [...] Component Value Ref Test Analysis Performed At [facility] Range Method Time Signature Cytogenetics Final Report FIONA Zhu Report [facility] ? [id number] HOSPITAL LABORATORY Specimen Type: Bone Marrow Specimen [...] (Electronic Signature) Verified By: Lawrence FONSECA, Ph.D., [facility] [place] Director, Cytogenetics Specimen (Source) Anatomical Collection Method Collection Time Re ceived Time Location / / Volume Laterality 04/10/2016 4:21 PM EDT Jessica Valerio MD HEMATOLOGY ORDERABLES Performing Organization Address City/State/[place] [address] ([facility]C MSURG)BONE MARROW ASP [...] instructed. Jayden Ignacio MD GENERAL SURGICAL ORDERABLES ([facility]C MSURG) UNILAT BONE MARROW BIOSPY (04/10/2016 10:36 AM EDT) Narrative Lanie Mcfadden APRN - 04/10/2016 1 0:36 AM EDT Lanie Mcfadden, AUTOMATION TECH ? 04/10/2016 10:36 AM ? BONE MARROW [...] Component Value Ref Test Analysis Performed At [facility] Range Method Time Signature Bone Marrow [id number] ?Location: [facility] Final Report IBAPAH The signing pathologist has (i) examined the relevant preparation(s) for the [facility]IAL specimen(s) and (ii) rendered or confirmed the diagnosis(es) . HOSPITAL LABORATORY . ?Molecu lar Genetics RESULTS DIAGNOSIS 1. ??Anemia, thrombocytopenia since 2012, by [...] aspirates. DNA sequencing was performed using the Sentri Myeloid Panel ([email or web address]) that contains of 54 genes associ ated [...] CLIA-certified laboratory. The genes assessed by the Gaelectric Myeloid Panel include: ?ABL1 , ASXL1, ATRX, [...] (CGAT) in the Department of Pathology at [facility]. It has not been cleared or approved by the U.S. Food and Drug Administratio n. This test is used for clinical purposes and should not be considered as investigat ional or for research purposes. The [facility] is certified by the Clinical Laboratory Imp [...] residual disease. Assay Limitations : (1) The Sentri Myeloid Panel provides 95% coverage of all [...] J Clin Oncol, 2012; Desmond et al, NEJM, 2012; Karen, Best Practice ??& Research Clini carlos Haematology, 2013; Leukemia Research 2013; Joey et al, Blood 2013; Gabby and Reza, Curr Hematol Malig Rep, 2013; Adrián and Miguel, Blood, 2014; Nishant sanchez et al, Blood, 2014; Mel et al, Cambodian Journal of Haematology, 2014; Sylvie et al, NEJ, 2015. Reviewed by: Sarah Kendall, PhD, CGAT-Industrial Eng Direc tor ?06/04/16 13:40 Reviewed by: Jaxson quiroz, PhD, [facility], Director-[facility] ([facility],06/12/16 09:15) Electronically signed by: ??Calos Cotto MD [...] polytypic expression of surface immunoglobulin light chain ([place]wood:Lambda ratio a t 2.3). The T-cells are an admixture of CD4+ and CD8+ T lymphocytes (ratio of 0.8). No loss or atypical intensity distributions are seen for any prater T antigen (CD2, 3, 4+8, 5, 7). There is no increase in LM62-rwlsmird/CD3-neg NK cells or CD3+/Cd56+ abberant T cells. Flow analysis is an ancillar y study. A definite diagnosis requires correlation with the morphologic features of thi s process and if necessary, correlation with other ancillary studies like immunohistoche loulou, enzyme cytochemistry and/or cyto/molecular genetics. This test was developed and its performance characteristics determined by the Clinical Flow Cytometry Laboratory a t [facility]. It has not been cleared or approved [...] high complexity clinical laboratory testing. SPECIMEN PROCESSING [id number] Cells for immunophenotypic a nalysis were derived [...] MD PATHOLOGY/CYTOLOGY ORDERABLE S Performing Organization Address City/[facility]/ZIP Code Phon e Number [address] Immunophenotyping Flow Cytometry (04/10/2016 10:30 AM EDT) Component Value Ref Test Analysis Performed At [facility] gist Range Method Time Signature Immunophenotyping See [facility] Flow [facility] LABORATORY Comment: When completed by the Pathologist, the F low Cytometry Report ([id number]) will display under the Pathology Results se ction within eDH. Specimen Anatomical Collection Method Collection Time Receive d Time (Source) Location / / Volume Laterality Bone marrow 04/10/2016 10:30 04/10/2016 specimen AM EDT 11:36 AM EDT (specimen) Resulting Agency Comment Spec In Lab Jayden Ignacio MD HEMATOLOGY ORDERABLES Performing Organization Address City/[facility]/ZIP Code Phon e Number [address] Iron Stain, Bone Marrow (04/10/2016 10:30 AM EDT) Patholo gist Method Time Signature Iron Stain BM See Comment [facility] LABORATORY Comment: See Bone Marrow Report [id number] under Hematopathology Reports. Specimen Anatomical Collection Method Collection Time Receive d Time (Source) Location / / Volume Laterality Bone marrow 04/10/2016 10:30 04/10/2016 specimen AM EDT 11:36 AM EDT (specimen) Resulting Agency Comment Spec In Lab Jayden Ignacio MD HEMATOLOGY ORDERABLES Performing Organization Address City/State/[place] [address] (ABNORMAL) Differential, Automated (04/10/2016 10:04 AM EDT) [facility] Method Time Signature Neutrophils % 73.7 % [facility] LABORATORY Neutr Abs (ANC) 3.33 1.70 - [facility] 6.10 [facility] x10(3)/[facility] LAB[facility]ATORY Lymphocytes % 15.3 % [facility] LABORATORY Lymphocytes Abs 0.7 (L) 0.9 - 3.2 [facility] x10(3)/[facility] LABORATORY Monocytes % 7.5 % [facility] LABORATORY Monocyte Abs 0.3 0.3 - 0.9 [facility] x10(3)/[facility] LABORATORY Eosinophils % 2.7 % [facility] LABORATORY Eosinophils Abs 0.1 0.0 - 0.4 [facility] x10(3)/[facility] LABORATORY Basophils % 0.4 % [facility] LABORATORY Basophils Abs 0.0 0.0 - 0.1 [facility] x10(3)/[facility] LABORATORY Immature Gran % 0.40 % [facility] LABORATORY Comment: Immature granulocytes(IG's)percentage an d absolute count will include metamyelocytes, myelocytes, and promyelo cytes. Blood smears from CBCs yielding IG's will be scanned manually for concor dance. If this scan disagrees with the automated IG or if promyelocytes are not ed, a manual differential will be performed. Tamara Gran Abs 0.02 0.00 - 0.04 x10(3)/[facility] Y [facility] LABORATORY Specimen Anatomical Collection Method Collection Time Receive d Time (Source) Location / / Volume Laterality Blood specimen 04/10/2016 10:04 6 (specimen) AM EDT 11:33 AM EDT Resulting Agency Comment Spec In Lab Jayden Ignacio MD HEMATOLOGY ORDERABLES Performing Organization Address City/State/[place] [address] (ABNORMAL) Hemogram (04/10/2016 10:04 AM EDT) Analysis Performed At Patho logist Time Signature WBC 4.5 4.0 - 9.5 [facility] x10(3)/[facility] LABORATORY RBC 3.13 (L) 4.58 - [facility] 5.54 [facility] x10(6)/[facility] LABORATORY Hemoglobin 8.6 (L) 13.7 [facility] 16.5 gm/dL [facility] LABORATORY Hematocrit 27.2 (L) 40.5 - [facility] 48.5 % [facility] LABORATORY MCV 86.9 82.9 [facility] 93.1 [facility] LABORATORY MCH 27.5 27.5 - [facility] 32.1 pg [facility] LABORATORY MCHC 31.6 (L) 32.0 - [facility] 35.7 gm/dL [facility] LABORATORY Platelets 83 (L) 145 - 357 [facility] x10(3)/[facility] LABORATORY RDWSD 51.4 (H) 36.0 - [facility] 45.0 [facility] LABORATORY RDWCV 16.4 (H) 11.4 - [facility] 13.8 % [facility] LABORATORY MPV 11.9 7.6 - 12.9 [facility] LABORATORY nRBC % Auto 0.0 % [facility] LABORATORY nRBC Abs Auto 0.000 0.000 - [facility] 0.000 [facility] x10(3)/[facility] LABORATORY Specimen Anatomical Collection Method Collection Time Receive d Time (Source) Location / / Volume Laterality Blood specimen 04/10/2016 10:04 6 (specimen) AM EDT 11:33 AM EDT Resulting Agency Comment Spec In Lab Jayden Ignacio MD HEMATOLOGY ORDERABLES Performing Organization Address City/State/[place] [address] documented in this encounter Visit Diagnoses Not on filedocumented in this encounter Active and Recently Administered Medications Times are shown in EDT. No Frequency Medication Order 04/08/2016 04/09/2016 04/10/2016 heparin, porcine (PF) 1,000 unit/mL injection 1015 (Due) 1 dose, Starting Sat04/10/16 at 1005, Un til Sat04/10/16 at 2214, SHAYY REYNAGA: cabinet override lidocaine (PF) (XYLOCAINE) 10 mg/mL (1 %) injection 1015 (Due) 1 dose, Starting Sat04/10/16 at 1005, Un til e 04/10/16 at 2214, SHAYY REYNAGA: cabinet override sodium bicarbonate 10 mEq/10 mL (8.4 %) Syrg 1015 (Due) Starting Sat04/10/16 at 1004, For 1 dose, SHAYY REYNAGA: cabi net override documented in this encounter Care Teams Label Stamper Relationship Specialty Start Date End Date Jazmine Baer MD PCP - General 11/07/10 [address] [place] [address] documented as of this encounter
--- OUTSIDE RECORDS SUMMARY | 2022-04-11 10:53 | XMS_ITS | Encounter Summary ---
:1960 Author Organization [facility] [place] [address] Care Team Providers Name Role Phone Jazmine Baer MD Primary Care Provider Reason for Visit Reason Comments Follow-up Encounter Details Date Type Department Care Team Description 10/13/2015 Office Visit Rhe[place]ology [place] [facility] Akash Prieto MD [facility] [place] [address] RHEUMATOLOGY DEPT. [phone] [place] [id number] (Wo rk) Social History Tobacco Use Types Packs/Day Years Used Date Never Smoker Smokeless Tobacco: Never Used Alcohol Use Standard Drinks/Week Comments No 0 (1 standard drink = 0.6 oz pure alcoho l) Sex Assigned at Date Recorded Not on file documented as of this encounter Progress Notes Akash Prieto MD - 10/13/2015 1:12 PM EDT The patient is a 55-year-old male with statin-induced myopathy from 2008, which was characterized by SRMP-6 antibodies to HGM CoA reductase. His initial CKs were in the 10 to 11,000 range and he has gotten a partial response from IVIG, most recently at 1 g/kg twice on 2 successive days each month. His CKs have gone down as low as 191, but recently since March of 2015, they have been increasing in spite of the fact that his strength has been better. Over the last 3 months they have increased to a high 3 days ago of 2917. It is a little bit difficult to figure out what part of his regimen has been responsible for the worsening, but the best guess we have is stopping his Solu-Medrol 5 to 6 months ago. As a consequence of that, Dr. Garcia and I have decided to re-institute pulse dose steroids. He is going to get three 1 g infusions each day, so 1 g daily for 3 days and then check a CK in 2 weeks. If this does effect the CK, then I think we are going to re-institute 1 g of Solu-Medrol with each of the IVIG's. If it does not work then we are going on the discuss tacrolimus. Today on exam, he is definitely stronger than he was before we changed the IVIG regimen but that over the last couple of weeks he says he has got a heaviness sensation in his legs. He is walking with a walker. He has 4+/5 strength in his proximal upper and lower extremities and near normal strength distally in his upper and lower extremities with a endoscopy technician strength of 31. His CK's have been scanned into the chart, but his most recent ones were June 22 518, July 20 942, August 15 147, September [id number] and October [id number]. Two other items. I asked that a port be placed so they can get his IVIG without struggling for access and secondly I ordered PFT's to be done the next clinic visit in 2 months. documented in this encounter Plan of Treatment Upcoming Encounters Date Type Specialty Care Team Description 06/19/2022 Office Visit Rheumatology Richi Blackmon MD [facility] DR RHEUMATOLOGY [place], [place] [address] (Wo rk) Scheduled Procedures Name Priority Associated Diagnoses Date/Time EGD, UPPER GI ENDOSCOPY Family hx of colon cance r COLONOSCOPY, DIAGNOSTIC Family hx of colon cance r documented as of this encounter Results Pulmonary Function Testing (01/17/2016 4:26 PM EDT) Narrative Slade Keller MD - 01/17/2016 4:26 PM EDT Slade Keller MD ? 01/17/2016 ??4:26 PM FVC,FEV1 are low. ??FEV1/FVC within norm al limits. TLC, RV are low. Diffusing capacity low. IMPRESSION: Restrictive lung disease. Akash Prieto MD PFT ORDERABLES documented in this encounter Visit Diagnoses Diagnosis Myopathy Myopathy, unspecified Myopathy Myopathy, unspecified documented in this encounter Care Teams Buzzle Buffer Relationship Specialty Start Date End Date Jazmine Baer MD PCP - General 11/07/10 [address] [place] [address] documented as of this encounter
--- OUTSIDE RECORDS SUMMARY | 2022-04-11 10:53 | XMS_ITS | Encounter Summary ---
:1960 Author Organization [facility] [place] [address] Care Team Providers Name Role Phone Samantha Baer MD Primary Care Provider Reason for Referral Diagnostic Test (Routine) - Closed Specialty Diagnoses / Procedures Referred By Contact Refer red To Contact Radiology Diagnoses Myositis associated antibody positive Akash Prieto MD [facility] Intervention[facility] Rad Procedures IR Mediport Placement / Exchange [facility] [place] [address] [place] [address] Referral ID Status Reason Start Date Expiration Date Visits V isits Requested Authorized [id number] Closed Specialty 10/31/2015 10/30/2016 1 1 Service Requested Reason for Visit Diagnostic Test (Routine) - Closed Specialty Diagnoses / Procedures Referred By Contact Refer red To Contact Radiology Diagnoses Myositis associated antibody positive Akash Prieto MD [facility] Rad Procedures IR Mediport Placement / Exchange [facility] [place] [address] [place] [address] Referral ID Status Reason Start Date Expiration Date Visits V isits Requested Authorized [id number] Closed Specialty 10/31/2015 10/30/2016 1 1 Service Requested Encounter Details Date Type Department Care Team Description 11/04/2015 Hospital Encounter Radiology at [facility] Akash Prieto Nonalcoholic steatohepatitis (HORTON); One [facility] MD Michelle Myositis associated antibody positive Drive [facility] [phone] RHEUMATOLOGY [phone] [place] [address] Social History Tobacco Use Types Packs/Day Years Used Date Never Smoker Smokeless Tobacco: Never Used Alcohol Use Standard Drinks/Week Comments No 0 (1 standard drink = 0.6 oz pure alcoho l) Sex Assigned at Date Recorded Not on file documented as of this encounter Last Filed Vital Signs Vital Sign Reading Time Taken Comments Blood Pressure 122/63 11/04/2015 10:00 AM EDT Pulse 63 11/04/2015 9:35 AM EDT Temperature 36.7 ??C (98 ??F) 11/04/2015 9:48 AM EDT Respiratory Rate 18 11/04/2015 9:48 AM EDT Oxygen Saturation 97% 11/04/2015 10:00 AM EDT Inhaled Oxygen Concentration - - Weight - - Height - - Body Mass Index - - documented in this encounter Discharge Instructions Discharge InstructionsAquilino Villarreal RN - 11/04/2015 10:10 AM EDT Images from the original note were not included. [facility] Department of Vascular and Interventional Radiology Discharge Instructions for your Chest Port You have received a ???Power Port?? , which provides access for infusions and blood draws. What makes this a ???Power Port?? is the unique ability to ???power inject?? contrast (intravenous dye) through the port when getting a CT scan, which produces superior images (pictures). Patients who don???thave these special ports need to have an IV started if they need dye injected for their CT scan. Your port is printed with the letters ???CT?? which can be detected by x- ray to identify it as a ???Power Port?? . You will be provided with an ID card stating the seo associate and type of port you have. Please carry this with you in a safe place. Bandage: There is a sterile dressing over the port site consisting of small gauze with a clear dressing (Tegaderm or [id number] ). This dressing should be left in place for 48 hours. If the clear dressing becomes loose you should place tape over the edges to secure it in place. Note: If you have steri-strips beneath your dressing, simply allow them to fall off. Do not peel them off. Pain: Apply ice bag to site (s) at 30 minute intervals (30 minutes on and 30 minutes off) for 24 hours?? . May use as needed for pain and/or bruising after 24 hours. Bathing: Do not take a shower until 48 hours after your port is placed; after this time you may shower with the dressing in place, then remove it and pat your skin dry. After 48 hours, we recommend that you cover the area with THE AQUA GUARD PROVIDED for 1 week while showering, facing away from the shower stream. You may use a bandaid to cover the site after the 48 hours are up if there is any drainage. No tub baths, whirlpools or swimming for one week following port placement. What to expect when your port is accessed: 1. You may feel tenderness the first few times it is accessed but generally this subsides over time.Ask your healthcare provider to use a local anesthetic on the site if discomfort is a problem for you. You may ask for a prescription for a topical cream (EMLA) from your clinician; you may apply at home prior to your appointments, to help numb the skin over your port. 2. The clinician should be wearing sterile gloves and a mask during the access procedure. Anyone in the room with you should also have a mask on. 3. The skin over and 2 inches around the port should be cleaned with a disinfectant 4. Tell the clinician if you would like the skin numbed (lidocaine) before the access needle is placed. 5. Unless you are unable to take heparin (blood thinner), the port should be injected with a heparinsolution before deaccess (at end of each treatment or blood draw). When to call your healthcare provider: ??? If you notice bleeding from the puncture site in your neck, or from the port incision on your chest, you should apply firm pressure over the site for 10-15 minutes, keeping the site covered. Call if you are still bleeding after 10-15 minutes. ??? If you develop pain, redness, drainage or swelling at or around the port site, or the puncture site in the neck ??? If you develop fever (elevation of more than 2 degrees or greater than 101F) and/or shaking chills When to call the Interventional Radiology Department: Please call with any questions or concerns. Ifit is during regular office hours, please call [phone]. If it is after regular office hours, oron weekends or holidays, please call [phone] and ask to speak to the Protocol Officer on callfor Interventional Radiology. XXX You have received medication during your procedure to help lesson anxiety and keep you comfortable. These medications affect judgement and reaction time. We recommend that you do not drive, operateequipment, sign any important documents, or smoke unattended for 24 hours following your procedure. Because of the sedation, be careful on stairs, as you may be unsteady on your feet. You may resume your regular diet as tolerated. IV site -- slight redness, or tenderness is normal, you can use a warm compress. If tenderness and redness increases or foul drainage occurs, please contact your M. D. Revised 06/24/15 documented in this encounter Medications at Time of Discharge Medication Sig Dispensed Refills Start Date End Date furosemide (LASIX) 20 Take 1 tablet by mouth 30 tablet 12 mg TabletIndications: daily. Myopathy multivitamin Capsule Take 1 capsule by mouth 0 daily. terazosin (HYTRIN) 5 Take 5 mg by mouth 0 016 08/02/2016 mg Capsule nightly. Reported on 08/02/2016 indomethacin Take 50 mg by mouth as 0 09/15/2015 10/02/2017 (INDOCIN) 50 mg needed. Capsule atenolol (TENORMIN) Take 50 mg by mouth 0 10/02/2017 50 mg Tablet daily. UNABLE TO FIND IVIG every [...] documented as of this encounter Progress Notes Cher Colmenares RN - 11/04/2015 8:43 AM EDT 0828 To procedure room 2 via stretcher. Onto table supine. All monitors, O2, safety strap in place. Med's per protocol. Jayson Dias MD - 11/03/2015 11:29 AM EDT Images from the original note were not included. PRE-PROCEDURE VIR NOTE: Referring Physician: Akash Prieto PCP: SAMANTHA BEAR MD Planned Procedure: Mediport placement Procedure Indication: IVIG infusion. Presenting Diagnosis/ Complaint: Bucky Beth is a 55 y.o. male with statin- induced antibody mediated myopathy. He has been previously treated with Solu- Medrol and IVIG with partial response. His condition recently worsened with rise in CKs, and IR has been consulted to place a Mediport for the IVIG infusion. Past Medical/Surgical History Patient Active Problem List Diagnosis Code ??? Myopathy G72.9 ??? Nausea and vomiting R11.2 ??? Diabetes mellitus type II E11.9 ??? Hepatosplenomegaly R16.2 ??? Durand's esophagus K22.70 ??? Nonalcoholic steatohepatitis (HORTON) K75.81 ??? Anemia D64.9 ??? Skin rash R21 ??? Imbalance R26.89 Past Medical History Diagnosis Date ??? Cirrhosis ??? Diabetes ??? DM II (diabetes mellitus, type II), controlled ??? Gout ??? Hyperlipidemia ??? Hypertension ??? Kidney stone ??? 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 Obesity ??? Shingles 2010 Past Surgical History Procedure Laterality Date ??? Umbilical hernia repair ??? Ureter stent placement renal stent ??? Tunneled venous port placement Jun 2012 ??? Tunneled venous port placement ??? Pro bone marrow aspiration w/bx through same incision/site 05/28/2013 ([facility]) BONE MARROW ASP PERFORMED W/BX THRU BX INCISION performed by Alem Evangelista MD at [facility] ??? Pro bone marrow bx, needle/trocar 05/28/2013 ([facility]) BONE MARROW,BIOPSY performed by Alem Evangelista MD at [facility] ??? Muscle biopsy 2008 ??? Lithotripsy ??? Tunneled venous port placement 2011 ??? Pro colonoscopy, diagnostic 07/21/2013 COLONOSCOPY, DIAGNOSTIC performed by Royer Temple MD at [facility] ??? Pro endoscopic us exam, esoph 07/21/2013 UPPER EUS- ENDOSCOPIC ULTRASOUND performed by Royer Temple MD at [facility] ??? Pro upper gi endoscopy, biopsy 07/21/2013 UPPER GASTROINTESTINAL ENDOSCOPY,WITH BIOPSY SINGLE OR MULTIPLE performed by Royer Temple MD at [facility] ??? Pro upper gi endoscopy, diagnostic N/A 08/30/2015 EGD, UPPER GI ENDOSCOPY performed by Anastasia Mccauley MD at [facility] Medications: Current Outpatient Prescriptions on File Prior to Encounter Medication Sig Dispense Refill ??? terazosin (HYTRIN) 5 mg Capsule Take 5 mg by mouth nightly. ??? atenolol (TENORMIN) 50 mg Tablet Take 50 mg by mouth daily. ??? furosemide (LASIX) 20 mg Tablet Take 1 tablet by mouth daily. 30 tablet 12 ??? UNABLE TO FIND IVIG every month for 2 days ??? insulin lispro (HUMALOG) Solution Inject 2-4 Units subcutaneously 3 times daily (with meals). (Patient taking differently: Inject 10-12 Units subcutaneously 3 times daily (with meals).) 10 mL 12 ??? multivitamin Capsule Take 1 capsule by mouth daily. ??? omeprazole (PRILOSEC) 40 mg capsule Take 1 capsule by mouth daily. 90 capsule 3 ??? lisinopril-hydrochlorothiazide (PRINZIDE;ZESTORETIC) 20-12.5 mg per tablet Take 2 tablets by mouth daily. ??? indomethacin (INDOCIN) 50 mg Capsule Take 50 mg by mouth as needed. ??? glipiZIDE (GLUCOTROL XL) 5 mg Tablet Extended Rel 24 hr Take 5 mg by mouth daily. ??? insulin glargine (LANTUS) Solution Inject 25 Units subcutaneously nightly. (Patient taking differently: Inject 80 Units subcutaneously nightly.) 10 mL 12 ??? ondansetron (ZOFRAN) 4 mg tablet Take 1 tablet by mouth as needed. 20 tablet 3 No current facility-administered medications on file prior to encounter. Allergies: Methotrexate; Morphine; and Nuqmkqx-kuc-ghy reductase inhibitors Social History and Habits: History Social History ??? Marital status: Spouse name: N/A ??? Number of children: 4 ??? Years of education: N/A Occupational History ??? Not on file. Social History Main Topics ??? Smoking status: Never Smoker ??? Smokeless tobacco: Never Used ??? Alcohol use: No ??? Drug use: No ??? Sexual activity: Not on file Comment: Deferred Other Topics Concern ??? Blood Transfusions No ??? Service No Social History Narrative Lives with of 35 years. Feels safe at home. Disabled since 2009. 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 Significant Family History: Family History Problem Relation Age of Onset ??? Colorectal Cancer Mother 59 ??? Diabetes Mother ??? Myocardial Infarction Father first [place] at 36 ??? Coronary Artery Disease Father ??? Stomach Cancer uncle ??? Obesity Mother ??? Hypertension Father ??? Hyperlipidemia Father ??? Type 2 Diabetes Paternal Uncle ??? Obesity Sister ??? Type 2 Diabetes Sister ??? Cirrhosis Paternal Aunt Alcohol Abuse Physical Exam: Pending ASA: Pending Mallampati: Pending Labs: Lab Results Component Value Date WBC 3.7 (L) 08/19/2015 ANC 2.05 (External Lab) 09/29/2013 HCT 29.0 (L) 08/19/2015 PLATELET 115 (L) 08/19/2015 INR 1.1 08/19/2015 BUN 32 (H) 08/19/2015 CREATININE 1.29 08/19/2015 ALKPHOS 94 08/19/2015 AST 56 (H) 08/19/2015 ALBUMIN 3.3 08/19/2015 BILIDIR 0.1 08/19/2015 BILITOT 0.5 08/19/2015 ALT 44 08/19/2015 PROT 9.7 (H) 08/19/2015 Prior relevant imagin07/05/2009: Chest Radiograph Assessment/Plan: 55 y.o. male with recent worsening of antibody mediated myopathy. The patient needsa Mediport for IVIG infusion therapy. Plan: Mediport placement. Patient Position: Supine Biopsy/drain access site: Likely RIJ Medications to discontinue (and days): [none] Labs: [obtain per protocol] General anesthesia required: [no] PRE-SEDATION ASSESSMENT / FOCUSED H&P Addendum: The patient's history and physical exam have been reviewed and completed. There has been no intervalchange from that of the pre-operative history and physical exam done within the last 30 days. Risks (including hemorrhage, infection, allergic reaction, occlusion, respiratory depression), and benefits discussed and patient consented to the procedure. I have reviewed with the patient, their prior experience with sedation. The patient has been NPO perprotocol I have reviewed the sedation plan for this patient???s case and concur that Fentanyl and Versed are appropriate choices for sedation and will be provided per the protocoled order set for this case Given history of RUE thrombus, will possibly plan for a left sided port today. Physical Exam Heart: RRR Lungs: clear ASA Classification: ASA 2 - Patient with mild systemic disease with no functional limitations Mallampati Classification: III (soft palate, base of uvula visible) Cher Colmenares RN - 11/01/2015 9:19 AM EDT [facility] NURSING DATABASE Name: BUCKY BETH Date of : 1960 AGE 55 y.o. Address: [address] [place] [phone] (home) Mobile: Telephone Information: Referring Provider: Akash Prieto REASON FOR VISIT: Prefered insertion location: No Preference Is the patient on anticoagulant / anitplatelet therapy ? No Where will study be performed? [facility] Reason for exam and clinical history: needs IVIg Exam/Procedure requested: mediport placement Anticoagulant/antiplatelet/herbal med. stopped on per MD order. Allergies Allergen Reactions ??? Methotrexate Hives, Itching and Rash ??? Morphine Itching ??? Uuyzfbn-Kxx-Fkx Reductase Inhibitors Myopathy Pertinent PMH: Patient Active Problem List Diagnosis Code ??? Myopathy G72.9 ??? Nausea and vomiting R11.2 ??? Diabetes mellitus type II E11.9 ??? Hepatosplenomegaly R16.2 ??? Durand's esophagus K22.70 ??? Nonalcoholic steatohepatitis (HORTON) K75.81 ??? Anemia D64.9 ??? Skin rash R21 ??? Imbalance R26.89 Pertinent PSH: Past Surgical History Procedure Laterality Date ??? Umbilical hernia repair ??? Ureter stent placement renal stent ??? Tunneled venous port placement Jun 2012 ??? Tunneled venous port placement ??? Pro bone marrow aspiration w/bx through same incision/site 05/28/2013 [facility]) BONE MARROW ASP PERFORMED W/BX THRU BX INCISION performed by Alem Evangelista MD at [facility] ??? Pro bone marrow bx, needle/trocar 05/28/2013 ([facility]) BONE MARROW,BIOPSY performed by Alem Evangelista MD at [facility] ??? Muscle biopsy 2008 ??? Lithotripsy ??? Tunneled venous port placement 2011 ??? Pro colonoscopy, diagnostic 07/21/2013 COLONOSCOPY, DIAGNOSTIC performed by Royer Temple MD at [facility] ??? Pro endoscopic us exam, esoph 07/21/2013 UPPER EUS- ENDOSCOPIC ULTRASOUND performed by Royer Temple MD at [facility] ??? Pro upper gi endoscopy, biopsy 07/21/2013 UPPER GASTROINTESTINAL ENDOSCOPY,WITH BIOPSY SINGLE OR MULTIPLE performed by Royer Temple MD at [facility] ??? Pro upper gi endoscopy, diagnostic N/A 08/30/2015 EGD, UPPER GI ENDOSCOPY performed by Anastasia Mccauley MD at [facility] Date/Procedure Med's given/comments 11/04/15 mediport placement Cefazolin 2gm IV, Fentanyl 175 mcg IV, Versed 3.5 mg IV Laboratory Results: Lab Results Component Value Date INR 1.1 08/19/2015 Lab Results Component Value Date CREATININE 1.29 08/19/2015 Lab Results Component Value Date K 5.1 (H) 08/19/2015 Lab Results Component Value Date PLATELET 115 (L) 08/19/2015 Medications: Prior to Admission medications Medication Sig Start Date End Date Taking? Authorizing Provider terazosin (HYTRIN) 5 mg Capsule Take 5 mg by mouth nightly. 10/04/15 PROVIDER, HISTORICAL indomethacin (INDOCIN) 50 mg Capsule Take 50 mg by mouth as needed. 09/15/15 PROVIDER, HISTORICAL atenolol (TENORMIN) 50 mg Tablet Take 50 mg by mouth daily. PROVIDER, HISTORICAL glipiZIDE (GLUCOTROL XL) 5 mg Tablet Extended Rel 24 hr Take 10 mg by mouth daily. 07/29/15 PROVIDER,HISTORICAL furosemide (LASIX) 20 mg Tablet Take 1 tablet by mouth daily. 03/25/15 Akash Prieto MD UNABLE TO FIND IVIG every month for 2 days PROVIDER, HISTORICAL insulin glargine (LANTUS) Solution Inject 25 Units subcutaneously nightly. Patient taking differently: Inject subcutaneously nightly. 07/13/14 Nilesh Kay MD insulin lispro (HUMALOG) Solution Inject 2-4 Units subcutaneously 3 times daily (with meals). Patient taking differently: Inject 10-12 Units subcutaneously 3 times daily (with meals). 07/13/14 Nilesh Kay MD multivitamin Capsule Take 1 capsule by mouth daily. PROVIDER, HISTORICAL omeprazole (PRILOSEC) 40 mg capsule Take 1 capsule by mouth daily. 09/03/13 Bethanie Gorman APRN ondansetron (ZOFRAN) 4 mg tablet Take 1 tablet by mouth as needed. 06/18/13 Bethanie Gorman APRN lisinopril-hydrochlorothiazide (PRINZIDE;ZESTORETIC) 20-12.5 mg per tablet Take 2 tablets by mouth daily. PROVIDER, HISTORICAL documented in this encounter Plan of Treatment Upcoming Encounters Date Type Specialty Care Team Description 06/19/2022 Office Visit Rheumatology Richi Blackmon MD [facility] [address] RHEUMATOLOGY [facility] [place], [place] [address] (Wo rk) Scheduled Procedures Name Priority Associated Diagnoses Date/Time EGD, UPPER GI ENDOSCOPY Family hx of colon cance r COLONOSCOPY, DIAGNOSTIC Family hx of colon cance r documented as of this encounter Procedures Procedure Name Priority Date/Time Associated Diagnosis Comme nts ORDS - PROVIDER 11/14/2015 12:00 AM CARE SCAN EDT IR MEDIPORT Routine 11/04/2015 9:44 AM Myositis associated Re sults for this PLACEMENT EDT antibody positive procedure are in the results section. POCT GLUCOSE Routine 11/04/2015 7:23 AM Results f or this EDT procedure are i n the results section. documented in this encounter Results SCAN DOC: ORDS - PROVIDER CARE (11/14/2015 12:00 AM EDT) Narrative This result has an attachment that is no t available. Scanning Provider MEDIA MGR SCAN EXT ORDR/RSLT IR Mediport Placement / Exchange (11/04/2015 9:44 AM EDT) Anatomical Region Laterality Modality X-Ray Angiography Specimen (Source) Anatomical Location Collection Method / Collectio n Time Received Time / Laterality Volume Impressions 11/04/2015 4:17 PM EDT : ??Successful placement single lumen right IJ port, catheter tip at cavoatrial junction. ??Port ready for use. Fellow: ??Jayson Dias MD Attending: ??Jeanmarie Leal MD I, Dr. Leal, was present throughout th e procedure. Narrative 11/04/2015 4:17 PM EDT VIR PROCEDURE NOTE: ?? Tunneled R IJ chest port. INDICATION: Bucky Beth is a 55 y.o . male with statin-induced antibody mediated myopathy. He has been previously treated with Solu-Medrol and IVIG with partial respon se. His condition recently worsened with rise in CKs, and IR has be en consulted to place a Mediport for the IVIG infusion. TECHNIQUE: After discussing risks (inclu ding infection, hemorrhage, occlusion), and benefits, patient consen manuel to the procedure and conscious sedation. Due to the painful nature of t he procedure, split doses of fentanyl and versed were administered by the IR nurse during continuous monitoring of pulse, blood pressure and oxygen saturation. ??Ancef 2g IV administered for antibiotic prophylaxis. Maximal sterile barrier technique was ut ilized. ??After sterile preparation of the right neck and upper chest, ultra sound was used to localize the internal jugular vein. 7 cc 1% lidocaine SQ was administered for anesthesia, and a 21 ga needle was advan curtis under ultrasound guidance into the IJ and a 0.018 inch wire was advance d into SVC under fluoroscopic guidance. ??A 5 Fr introducer sheath was placed and the wire exchanged for a 0.035 inch wire. ??Lidocaine was then infiltrated in a caudal-lateral direction, and infiltrated over a 3 cm i nfraclavicular area for pocket creation. ??A 2.5 cm incision was made, and with blunt dissection a pocket created. ??Port was attached to the cath eter, placed into the pocket. ??A tunneler was then used to bring the 8 Fr catheter through the tunnel to the venotomy site. ??Venotomy was dilate d to accommodate the 8 Fr peel-away sheath, and during breath-hold, the cath eter advanced. ??Sheath was removed. ??Port flushed and aspirated we ll. ??Tip position confirmed with stored fluoroscopic image. ??Pocket was closed with resorbable 2-0 interrupted sutures and running 4-0 subc uticular suture. ??Patient tolerated the procedure well. ??There we re no immediate complications. ??No contrast administered. ??Fluro dose: 0.1 min. ?? EBL : ??<5 cc's Medications: Cefazolin 2gm IV, Fentanyl 175 mcg IV, Versed 3.5 mg IV Akash Prieto MD IMG IR ORDERABLES POCT Glucose (11/04/2015 7:23 AM EDT) P athologist Signature POC Glucose 188 65 - [facility] Comment: Supplemental ranges: <140 mg/dL before meals <180 mg/dL all other times of the day Specimen Anatomical Collection Method Collection Time Receive d Time (Source) Location / / Volume Laterality Blood specimen 11/04/2015 7:23 AM 05/27/2 016 7:23 (specimen) EDT AM EDT Akash Prieto MD POINT OF CARE TEST ORDERABLE S Performing Organization Address City/State/ZIP [place] [address] documented in this encounter Visit Diagnoses Diagnosis Nonalcoholic steatohepatitis (HORTON) Other chronic nonalcoholic liver disease Myositis associated antibody positive documented in this encounter Administered Medications Inactive Administered Medications - up to 3 most recent administrations Medication Order MAR Action Action Date Dose Rate Site BUpivacaine-EPINEPHrine 0.25 Given 11/04/2015 8:55 AM EDT 20 mLs %-1:200,000 injection 20 mL 20 mL (50 mg), Infiltration, ONCE, 1 dose, On Sat11/04/15 at 0730, For use in Interventional Radiology (IR) only for procedural sedation with direct provider supervision and verbal order., Angio/IR (Intra-Procedure), Routine ceFAZolin (ANCEF) 2g in dextrose 5% 50 Given 11/04/2015 8:15 AM EDT 2 g 100 mL/hr mL 2 g, Intravenous, ONCE, 1 dose, On Sat11/04/15 at 0730, Administer over 30 Minutes, Redose every 3 hours if CrCl is greater than 20. Redose every 8 hours if CrCl is less than 20., Day of Surgery (Day of Procedure), Indication for (Active or Suspected): Prophylaxis fentaNYL 50 mcg/mL multi-dose injection Given 11/04/2015 9:19 AM EDT 25 mcg 25-50 mcg, Intravenous, EVERY 5 MIN PRN, Starting on Sat11/04/15 at 0711, Until Sat11/04/15 at 0928, Pain, per unit protocol, - Start dose 50 mcg (reduce dose to 25 mcg if history of sedation sensitivity). - Titration dose 25-50 mcg IV, (based on patient response) every 3 minutes PRN, to maintain procedural pain less than 2 per pain Scale. Maximum dose: 50 mcg/dose, 250 mcg/hour For use in Interventional Radiology (IR) only for procedural sedation with direct provider supervision and verbal order., Angio/IR (Intra-Procedure), Routine Given 11/04/2015 9:11 AM EDT 25 mcg Given 11/04/2015 8:55 AM EDT 25 mcg lidocaine (XYLOCAINE) 10 mg/mL (1 %) injection Given 0 11/04/2015 8:55 AM EDT 10 mg 10 mg 10 mg, Subcutaneous, ONCE, 1 dose, On Sat11/04/15 at 0730, For use in Interventional Radiology (IR) only for procedure with direct provider supervision and verbal order., Angio/IR (Intra-Procedure), Routine midazolam (PF) (VERSED) 1 mg/mL multi-dose Given 11/04/2015 9:19 AM EDT 0.5 mg injection 0.5-1 mg 0.5-1 mg, Intravenous, EVERY 3 MIN PRN, Starting on Sat11/04/15 at 0711, Until Sat11/04/15 at 0928, Sleep, - Start dose; 1 mg (Reduce dose to 0.5 mg if history of sedation sensitivity). - Titration dose: 0.5 mg - 1 mg (based on patient response) every 3 minutes PRN to obtain RASS score of -3. Maximum dose: 1 mg per dose, 5 mg/hour. For use in Interventional Radiology (IR) only for procedural sedation with direct provider supervision and verbal order., Angio/IR (Intra-Procedure), Routine Given 11/04/2015 9:11 AM EDT 0.5 mg Given 11/04/2015 8:55 AM EDT 0.5 mg sodium chloride 0.9% infusion New Bag 11/04/2015 7:30 AM EDT 50 mL/hr 50 mL/hr 50 mL/hr, Intravenous, CONTINUOUS, Starting on Sat11/04/15 at 0730, Until Sat11/04/15 at 1025, Day of Surgery (Day of Procedure) documented in this encounter Care Teams Metal Hanger Relationship Specialty Start Date End Date Samantha Baer MD PCP - General 11/07/10 [address] [place] [address] documented as of this encounter
--- OUTSIDE RECORDS SUMMARY | 2022-04-11 10:53 | XMS_ITS | Encounter Summary ---
:1960 Author Organization [facility] [place] [address] Care Team Providers Name Role Phone Samantha Baer MD Primary Care Provider Reason for Visit Reason Comments Follow-up Encounter Details Date Type Department Care Team Description 08/19/2015 Office Visit Gastroenterology at [facility] Anastasia Norman Liver cirrhosis [facility] Hilda Montejo [place] [address] [facility] (Primary Dx) [phone] [place] [address] Social History Tobacco Use Types Packs/Day Years Used Date Never Smoker Smokeless Tobacco: Never Used Alcohol Use Standard Drinks/Week Comments No 0 (1 standard drink = 0.6 oz pure alcoho l) Sex Assigned at Date Recorded Not on file documented as of this encounter Last Filed Vital Signs Vital Sign Reading Time Taken Comments Blood Pressure 169/66 08/19/2015 10:49 AM EST Pulse 67 08/19/2015 10:49 AM EST Temperature - - Respiratory Rate - - Oxygen Saturation - - Inhaled Oxygen - - Concentration Weight 128.1 kg (282 lb 6.4 08/19/2015 10:49 Weighed wi th shoes. oz) AM EST Height 174 cm (5' 8.5) 08/19/2015 10:49 AM EST Body Mass Index 42.31 08/19/2015 10:49 AM EST documented in this encounter Progress Notes Anastasia Norman MD - 08/19/2015 11:17 AM EST Gastroenterology and Hepatology Follow Up Note Patient: Bucky Beth Gender: Male : 1960 Provider: Anastasia Norman MD Interval History: Mr. Beth is here with his for follow up for HORTON Cirrhosis. I last saw him in February 2016. Since, he's gained >20lbs which he thinks is related to him myositis. He isn't exercising much and finds that he is more unstable on his feet. He uses a cane to walk. He is restarting with PT next week to see what he is able to do. He is also having issues with hisdiabetes which is likely related to is weight gain. His fasting sugars are 140-240s. His Glucotrol was increased to 10mg daily. He noticed this since increasing his dose of gammaguard about two months ago. He was told he has anemia. He's had a couple of nosebleeds which stopped spontaneously, but otherwise denies hematochezia, hematemesis or melena. He is not using ASA or NSAIDs. He denies any heartburn or dyspepsia symptoms. I reviewed his blood work, imaging today. We also reviewed his diet: breakfast- toast x 2 with butter, bologne or tuna sandwich; lunch- chicken or left overs. Preventative Health: 1. HAV/HBV: (+)/(-)- received last shot of HBV vaccine 2. Colonoscopy - 07/21/13 hyperplastic polyp. Due again 07/2023 3. Portal HTN: EGD 07/21/13 no EV. Due again 07/2016 4. HCC Surveillance: US August 2015- Coarsely echogenic liver c/w chronic liver disease. No focal ??hepatic mass seen. The small right lobe hemangioma noted ??previously is not seen. Mild splenomegaly. No ascites.??The hepatic veins, portal veins and hepatic artery are patent with??normal directional flow in the main portal vein. 5. Influenza: 2012 6. Pneumovax: unknown Problem List: 1. Cirrhosis- 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 Metabolic risk factors: HTN, T2DM, Obese, dyslipidemia. No liver biopsy ?- 1st presentation- Elevated liver enzymes since 2009 when he was diagnosed with myositis ?- Complicated with transient HE minimal improvement with RIfaximin (01/2014) ?- No ascites, on EV 2. Liver Hemangioma 1.6cm ?? 3. DM2 4. HTN 5. Hypertension ?? 6. Myositis- statin induced myoapthy ?-?? Jun 2014-received IVIg x 2days every month and Solumedrol 7. 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 glipiZIDE (GLUCOTROL XL) 5 mg Tablet Extended Rel 24 hr Take 10 mg by mouth daily. ??? terazosin (HYTRIN) 2 mg Capsule Take 2 mg by mouth nightly. ??? furosemide (LASIX) 20 mg Tablet Take 1 tablet by mouth daily. 30 tablet 12 ??? UNABLE TO FIND IVIG every month for 2 days ??? insulin glargine (LANTUS) Solution Inject 25 Units subcutaneously nightly. (Patient taking differently: Inject subcutaneously nightly.) 10 mL 12 ??? insulin lispro (HUMALOG) Solution Inject 2-4 Units subcutaneously 3 times daily (with meals). (Patient taking differently: Inject 10-12 Units subcutaneously 3 times daily (with meals).) 10 mL 12 ??? multivitamin Capsule Take 1 capsule by mouth daily. ??? omeprazole (PRILOSEC) 40 mg capsule Take 1 capsule by mouth daily. 90 capsule 3 ??? indomethacin (INDOCIN) 25 mg capsule Take 25 mg by mouth 2 times daily (with meals). As needed ??? ondansetron (ZOFRAN) 4 mg tablet Take 1 tablet by mouth as needed. 20 tablet 3 ??? lisinopril-hydrochlorothiazide (PRINZIDE;ZESTORETIC) 20-12.5 mg per tablet Take 2 tablets by mouth daily. ??? atenolol (TENORMIN) 100 mg tablet Take 50 mg by mouth daily. No current facility-administered medications for this visit. ALLERGIES/ADR Allergies Allergen Reactions ??? Methotrexate Hives, Itching and Rash ??? Morphine Itching ??? Gffcmvp-Ybe-Jeg Reductase Inhibitors Myopathy PHYSICAL EXAMINATION: Filed Vitals: 08/19/15 1049 BP: 169/66 Pulse: 67 Height: 174 cm (5' 8.5) Weight: 128.096 kg (282 lb 6.4 oz) Body mass index is 42.31 kg/(m^2). GEN: Healthy in appearance, no acute distress. No asterixis SKIN: No rashes or abnormal lesions noted. No stigmata of chronic liver disease HEENT: Nonicteric sclera, no oral lesions NECK: No lymphadenopathy or thyromegaly LUNGS: Clear to auscultation bilaterally COR: Regular, normal S1 and S2 without murmurs ABD: Soft and non-distended. Normal active bowel sounds. No tenderness to deep palpation in all 4 quadrants. No ascites. No hepatosplenomegaly. EXT: No edema, cyanosis or edema PERTINENT LABS AND IMAGING: Recent Labs 08/19/15 1013 WBC 3.7* RBC 3.34* HGB 9.2* HCT 29.0* MCV 86.8 MCH 27.5 MCHC 31.7* PLATELET 115* RDWCV 16.6* Lab Results Component Value Date ALT 44 08/19/2015 AST 56* 08/19/2015 GGT 124* 05/14/2013 ALKPHOS 94 08/19/2015 BILITOT 0.5 08/19/2015 Recent Labs 08/19/15 1013 NA 141 K 5.1* CL 107 CO2 21* BUN 32* CREATININE 1.29 GLUCOSE 130 Recent Labs 08/19/15 1013 INR 1.1 IMPRESSION/PLAN: Mr. Beth is a 55M with HORTON cirrhosis and myositis. He is doing well from a cirrhosis standpoint,well compensated. His mobility is unfortunately limited by his myositis which is likely contributingto his poor control of his diabetes. He is due to see Rheumatology and is planning to work with physical therapy to regain strength in his muscles. He has a normacytic anemia with no obvious overt bleeding except for nosebleeds. I am not as familiar with gamagaurd but understand it can lead to anemia and hemolysis. I am going to do a basic hemolysis work up today and have asked him to see Hematology and Rheumatology regarding this. I have also scheduled him for an upper endoscopy to assess for varices and optimize therapy if needed. Otherwise, I will see him back in clinic in 6 months with blood work and US the same day. The patient was given my contact information and will call me with concerns or questions 25 minutes of this 30 minute [id number] encounter were spent counseling the patient in HORTON cirrhosis. Anastasia Norman MD Section of Gastroenterology [place] [address] Cc: SAMANTHA BAER MD [address] [place] [id number] documented in this encounter Plan of Treatment Upcoming Encounters Date Type Specialty Care Team Description 06/19/2022 Office Visit Rheumatology Richi Blackmon MD [facility] [address] RHEUMATOLOGY [place], [place] [address] (Wo rk) Scheduled Procedures Name Priority Associated [...] 01:25 pm) PATIENT INFO: ID #: ? [id number] ? : [birth year] (55 yrs) Name: ? BUCKY BETH ?Visit Date:03/06/2016 10:36 am PERFORMED BY: Performed By: ? Bandar Higgins RDMS Attending: ?Negin FONSECA, Sue Spear Referred By: ?ANASTASIA NORMAN MD SERVICE(S) PROVIDED: ??UABDCVASC - Abdominal Complete Survey with Vascular ?? [id number], [id number] ??- [id number] INDICATIONS: ??HORTON cirrhosis- Feb 2016 TECHNIQUE/SCAN QUALITY: [...] the original. Abdominal Duplex (Signed Final 03/06/20 16 01:25 pm) PATIENT INFO: ID #: [id number] : [birth year] (55 y rs) Name: BUCKY BETH Visit Date:03/06 10:36 am PERFORMED BY: Performed By: Nancy Higgins RDMS Attending: Sue Kam MD Referred By: ANASTASIA NORMAN MD SERVICE(S) PROVIDED: UABDCVASC - Abdominal Complete Survey w [facility] Vascular [id number], [id number] - [id number] INDICATIONS: HORTNO cirrhosis- Feb 2016 TECHNIQUE/SCAN QUALITY: Scan Quality: [...] Electronically Signed Final Report 03/06 01:25 pm Anastasia Norman MD IMG US GEN ORDERABLES Direct antiglobulin test (08/19/2015 12:25 PM EST) athologist Signature JOHANNY Positive [facility] JOHANNY IgG Positive [facility] JOHANNY C3 Negative [facility] Specimen Anatomical Collection Method Collection Time Receive d Time (Source) Location / / Volume Laterality Blood specimen 08/19/2015 12:25 6 (specimen) PM EST 12:32 PM EST Resulting Agency Comment Spec In Lab Anastasia Norman MD BLOOD BANK ORDERABLES Performing Organization Address City/State/[place] [address] (ABNORMAL) Iron and TIBC (08/19/2015 12:25 PM EST) athologist Signature Iron 54 45 - 160 [facility]dL [facility] TIBC 385 250 - 450 [facility]dL [facility] Iron Saturation 14 (L) 20 - 50 % [facility] Specimen Anatomical Collection Method Collection Time Receive d Time (Source) Location / / Volume Laterality Blood specimen 08/19/2015 12:25 6 (specimen) PM EST 12:33 PM EST Resulting Agency Comment Spec In Lab Anastasia Norman MD CHEMISTRY ORDERABLES Performing Organization Address City/State/[place] [address] Ferritin (08/19/2015 12:25 PM EST) athologist Signature Ferritin 64 30 - 400 [facility] ng/mL [facility] Comment: Pediatric reference ranges not verified at [facility], interpret with caution. Reference ranges for females greater kayleigh n 50 years of age approach values for men, i.e., 30-400 ng/mL. Specimen Anatomical Collection Method Collection Time Receive d Time (Source) Location / / Volume Laterality Blood specimen 08/19/2015 12:25 6 (specimen) PM EST 12:33 PM EST Resulting Agency Comment Spec In Lab Anastasia Norman MD CHEMISTRY ORDERABLES Performing Organization Address City/State/[place] [address] documented in this encounter Visit Diagnoses Diagnosis 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 - Prim mamadou Other chronic nonalcoholic liver disease 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 Other chronic nonalcoholic liver disease documented in this encounter Care Teams Basting Cleaner Relationship Specialty Start Date End Date Samantha Baer MD PCP - General 11/07/10 [address] [place] [address] documented as of this encounter
--- OUTSIDE RECORDS SUMMARY | 2022-04-11 10:53 | XMS_ITS | Encounter Summary ---
:1960 Author Organization [facility] [place] [address] Care Team Providers Name Role Phone Jazmine Baer MD Primary Care Provider Reason for Referral Diagnostic Test (Routine) - Closed Specialty Diagnoses / Procedures Referred By Contact Refer red To Contact Radiology Diagnoses Myositis associated antibody positive Akash Prieto MD [facility] Interventionl Rad Procedures IR Mediport Placement / Exchange [facility] [place] [address] [place] [address] Referral ID Status Reason Start Date Expiration Date Visits V isits Requested Authorized [id number] Closed Specialty 10/31/2015 10/30/2016 1 1 Service Requested Encounter Details Date Type Department Care Team Description 10/31/2015 Orders Only [place] [facility] Akash Prieto, Myositis associated [facility] [place] [address] RHEUMATOLOGY DEP [place], [place] [address] Social History Tobacco Use Types [...] Visit Rheumatology Richi Blackmon MD [facility] DR RHEUMATOLOGY [place], [place] [address] (Wo rk) Scheduled Procedures Name Priority Associated Diagnoses Date/Time EGD, UPPER GI ENDOSCOPY Family hx of colon cance r COLONOSCOPY, DIAGNOSTIC Family hx of colon cance r documented as of this encounter Results IR Mediport Placement / Exchange (11/04/2015 9:44 [...] Tunneled R IJ chest port. INDICATION: Bucky Acevedo is a 55 y.o . male with [...] IV Akash Prieto MD IMG IR ORDERABLES documented in this encounter Visit Diagnoses Diagnosis Myositis associated antibody positive Nonalcoholic steatohepatitis (HORTON) Other chronic nonalcoholic liver disease Myositis associated antibody positive documented in this encounter Care Teams Investigative Agent Relationship Specialty Start Date End Date Jazmine Baer MD PCP - General 11/07/10 [address] [place] [address] documented as of this encounter
--- OUTSIDE RECORDS SUMMARY | 2022-04-11 10:53 | XMS_ITS | Encounter Summary ---
:1960 Author Organization [facility] [place] [address] Care Team Providers Name Role Phone Jazmine Baer MD Primary Care Provider Encounter Details Date Type Department Care Team Description 03/16/2016 Hospital Encounter Hematology and Iron de ficiency anemia, [place] [facility] [place] iron [facility] [place] [address] Social History Tobacco Use Types Packs/Day [...] (INDOCIN) Take 50 mg by mouth 0 12/201510/02/2017 50 mg Capsule as needed. atenolol [...] Rheumatology Richi Blackmon MD [facility] ER DR RHEUMATOLOGY [place], [place] [address] (Wo rk) Scheduled Procedures Name Priority Associated Diagnoses Date/Time EGD, UPPER GI ENDOSCOPY Family hx of colon cance r COLONOSCOPY, DIAGNOSTIC Family hx of colon cance r documented as of this encounter Procedures Procedure Name Priority Date/Time Associated Comments Diagnosis HEMOGRAM Routine 03/16/2016 12:52 Iron deficiency Results for this PM EDT anemia, unspecified procedur e are in iron deficiency the results anemia type section. DIFFERENTIAL, Routine 03/16/2016 12:52 Iron deficiency Results for this AUTOMATED PM EDT anemia, unspecified procedur e are in iron deficiency the results anemia type section. IRON AND TIBC Routine 03/16/2016 12:52 Iron deficiency Results for this PM EDT anemia, unspecified procedur e are in iron deficiency the results anemia type section. RETICULOCYTE COUNT Routine 03/16/2016 12:52 Iron deficiency Re sults for this PM EDT anemia, unspecified procedur e are in iron deficiency the results anemia type section. CBC (WITH DIFF) Routine 03/16/2016 12:52 Iron deficiency PM EDT anemia, unspecified iron deficiency anemia type IRON Routine 03/16/2016 12:52 Iron deficiency Results for this PM EDT anemia, unspecified procedur e are in iron deficiency the results anemia type section. FOLATE, SERUM Routine 03/16/2016 12:52 Iron deficiency Results for this PM EDT anemia, unspecified procedur e are in iron deficiency the results anemia type section. FERRITIN Routine 03/16/2016 12:52 Iron deficiency Results for this PM EDT anemia, unspecified procedur e are in iron deficiency the results anemia type section. VITAMIN B12 Routine 03/16/2016 12:52 Iron deficiency Results for this PM EDT anemia, unspecified procedur e are in iron deficiency the results anemia type section. COMPREHENSIVE Routine 03/16/2016 12:52 Iron deficiency Results for this METABOLIC PANEL PM EDT anemia, unspecified proce dure are in (NON-FASTING) iron deficiency the results anemia type section. documented in this encounter Results Differential, Automated (03/16/2016 12:52 PM EDT) P athologist Signature Neutrophils % 66.2 % [facility] Neutr Abs (ANC) 3.48 1.70 - [facility] 6.10 [facility] x10(3)/[facility] LABORATORY Lymphocytes % 21.9 % [facility] Lymphocytes Abs 1.2 0.9 - 3.2 [facility] x10(3)[facility] LABORATORY Monocytes % 8.8 % [facility] Monocyte Abs 0.5 0.3 - 0.9 [facility] x10(3)[facility] LABORATORY Eosinophils % 1.9 % [facility] Eosinophils Abs 0.1 0.0 - 0.4 [facility] x10(3)/[facility] LABORATORY Basophils % 1.0 % [facility] Basophils Abs 0.0 0.0 - 0.1 [facility] x10(3)/[facility] LABORATORY Immature Gran % 0.20 % [facility] Comment: Immature granulocytes(IG's)percentage an d absolute count will include metamyelocytes, myelocytes, and promyelo cytes. Blood smears from CBCs yielding IG's will be scanned manually for concor dance. If this scan disagrees with the automated IG or if promyelocytes are not ed, a manual differential will be performed. Tamara Gran Abs 0.01 0.00 - 0.04 x10(3)/[facility] Specimen Anatomical Collection Method Collection Time Receive d Time (Source) Location / / Volume Laterality Blood specimen 03/16/2016 12:52 6 1:05 (specimen) PM EDT PM EDT Resulting Agency Comment Spec In Lab Jayden Ignacio MD HEMATOLOGY ORDERABLES Performing Organization Address City/State/[place] [address] (ABNORMAL) Hemogram (03/16/2016 12:52 PM EDT) Analysis Performed At Patho logist Time Signature WBC 5.2 4.0 - 9.5 [facility] x10(3)/[facility] LABORATORY RBC 3.41 (L) 4.58 - [facility] 5.54 [facility] x10(6)/[facility] LABORATORY Hemoglobin 9.5 (L) 13.7 - [facility] 16.5 gm/dL [facility] Hematocrit 30.4 (L) 40.5 - [facility] 48.5 % [facility] MCV 89.1 82.9 - [facility] 93.1 [facility] LABORATORY MCH 27.9 27.5 - [facility] 32.1 pg [facility] MCHC 31.3 (L) 32.0 - [facility] 35.7 gm/dL [facility] Platelets 87 (L) 145 - 357 [facility] x10(3)/[facility] LABORATORY RDWSD 59.6 (H) 36.0 - [facility] 45.0 [facility] LABORATORY RDWCV 18.2 (H) 11.4 - [facility] 13.8 % [facility] MPV 12.1 7.6 - 12.9 [facility] LABORATORY nRBC % Auto 0.0 % [facility] nRBC Abs Auto 0.000 0.000 - [facility] 0.000 [facility] x10(3)/[facility] LABORATORY Specimen Anatomical Collection Method Collection Time Receive d Time (Source) Location / / Volume Laterality Blood specimen 03/16/2016 12:52 6 1:05 (specimen) PM EDT PM EDT Resulting Agency Comment Spec In Lab Jayden Ignacio MD HEMATOLOGY ORDERABLES Performing Organization Address City/State/ZIP Code Phon e Number [address] (ABNORMAL) Reticulocyte Count (03/16/2016 12:52 PM EDT) Patholo gist Method Time Signature Retic Ct % 2.6 0.7 - 2.6 [facility] % [facility] Retic Ct Abs 0.090 0.030 - [facility] 0.120 [facility] x10(6)/[facility] L LABORATORY Immature Retic% 19.0 (H) 0.0 - [facility] 15.6 % [facility] Reticulated Hgb 32.0 31.3 - [facility] 40.2 pg [facility] Specimen Anatomical Collection Method Collection Time Receive d Time (Source) Location / / Volume Laterality Blood specimen 03/16/2016 12:52 6 1:05 (specimen) PM EDT PM EDT Resulting Agency Comment Spec In Lab Jayden Ignacio MD HEMATOLOGY ORDERABLES Performing Organization Address City/State/ZIP Code Phon e Number [address] Iron (03/16/2016 12:52 PM EDT) P athologist Signature Iron 62 45 - 160 [facility] mcg/dL [facility] Specimen Anatomical Collection Method Collection Time Receive d Time (Source) Location / / Volume Laterality Blood specimen 03/16/2016 12:52 6 1:05 (specimen) PM EDT PM EDT Resulting Agency Comment Spec In Lab Jayden Ignacio MD CHEMISTRY ORDERABLES Performing Organization Address City/State/ZIP Code Phon e Number [address] Folate, serum (03/16/2016 12:52 PM EDT) P athologist Signature Folate Lvl >20.0 4.8 - 24.2 [facility] ng/mL [facility] Specimen Anatomical Collection Method Collection Time Receive d Time (Source) Location / / Volume Laterality Blood specimen 03/16/2016 12:52 6 1:05 (specimen) PM EDT PM EDT Resulting Agency Comment Spec In Lab Jayden Ignacio MD CHEMISTRY ORDERABLES Performing Organization Address City/[facility]/ZIP Code Phon e Number [address] (ABNORMAL) Iron and TIBC (03/16/2016 12:52 PM EDT) athologist Signature Iron 62 45 - 160 [facility] mcg/dL [facility] TIBC 446 250 - 450 [facility] mcg/dL [facility] Iron Saturation 14 (L) 20 - 50 % [facility] Specimen Anatomical Collection Method Collection Time Receive d Time (Source) Location / / Volume Laterality Blood specimen 03/16/2016 12:52 6 1:05 (specimen) PM EDT PM EDT Resulting Agency Comment Spec In Lab Jayden Ignaico MD CHEMISTRY ORDERABLES Performing Organization Address City/State/[place] [address] Vitamin B12 (03/16/2016 12:52 PM EDT) athologist [facility] Vitamin B-12 863 207 - 974 [facility] pg/mL [facility] Specimen Anatomical Collection Method Collection Time Receive d Time (Source) Location / / Volume Laterality Blood specimen 03/16/2016 12:52 6 1:05 (specimen) PM EDT PM EDT Resulting Agency Comment Spec In Lab Jayden Ignacio MD CHEMISTRY ORDERABLES Performing Organization Address City/[facility]/[place] [address] Ferritin (03/16/2016 12:52 PM EDT) athologist Signature Ferritin 78 30 - 400 [facility] ng/mL [facility] Comment: Pediatric reference ranges not verified at [facility], interpret with caution. Reference ranges for females greater kayleigh n 50 years of age approach values for men, i.e., 30-400 ng/mL. Specimen Anatomical Collection Method Collection Time Receive d Time (Source) Location / / Volume Laterality Blood specimen 03/16/2016 12:52 6 1:05 (specimen) PM EDT PM EDT Resulting Agency Comment Spec In Lab Jayden Ignacio MD CHEMISTRY ORDERABLES Performing Organization Address City/State/[place] [address] (ABNORMAL) Comprehensive metabolic panel (non-fasting) (03/16/2016 12:52 PM EDT) athologist Signature Glucose Lvl 170 65 - 199 [facility] mg/dL [facility] Comment: Diabetes: >=200 mg/dL plus symp toms BUN 33 (H) 10 - 20 mg/dL [facility] Creatinine 1.48 0.80 - 1.50 mg/dL [facility] Comment: Please note that the pediatric reference intervals supplied above were not validated at [facility]. Results from pediatri c patients should be interpreted in conjunction to the patient's age, height and muscle mass. Sodium 144 135 - 145 mmol/L [facility] Potassium 4.6 3.5 - 5.0 mmol/L [facility] Comment: Please note: ??Patients with WBC >100,00 0 may have falsely elevated Potassium levels. ??For accurate Potassium quantif ication in these patients send serum separator tube (gold top) for subsequent determinations. ??Contact the Clinical Chemistry Laboratory if there are any qu estions. Chloride 105 98 - 107 mmol/L [facility] CO2 18 (L) 22 - 31 mmol/L [facility] Anion Gap 21 (H) 5 - 15 mmol/L [facility] Calcium 9.3 8.5 - 10.5 mg/dL [facility] Total Protein 8.5 (H) 6.1 - 8.0 gm/dL [facility] Albumin 3.9 3.2 - 5.2 gm/dL [facility] AST 27 0 - 39 unit/L [facility] ALT 24 0 - 55 unit/L [facility] Alk Phos 108 40 - 120 unit/L [facility] Total Bilirubin 0.5 0.2 - 1.3 mg/dL [facility] Bili, Direct 0.1 0.0 - 0.3 mg/dL [facility] Estimated GFR 49 (L) >=60 [facility] Comment: This estimated GFR [...] the following links into your internet browser. [email or web address] [email or web address] Specimen Anatomical Collection Method Collection Time Receive d Time (Source) Location / / Volume Laterality Blood specimen 03/16/2016 12:52 6 1:05 (specimen) PM EDT PM EDT Resulting Agency Comment Spec In Lab Jayden Ignacio MD CHEMISTRY ORDERABLES Performing Organization Address City/State/ZIP Code Phon e Number [place] [id number] documented in this encounter Visit Diagnoses Diagnosis Iron deficiency anemia, unspecified iron deficiency anemia type documented in this encounter Care Teams Mental Health Nurse Relationship Specialty Start Date End Date Jazmine Baer MD PCP - General 11/07/10 [address] [place] [address] documented as of this encounter
--- OUTSIDE RECORDS SUMMARY | 2022-04-11 10:53 | XMS_ITS | Encounter Summary ---
:1960 Author Organization [facility] [place] [address] Care Team Providers Name Role Phone Jazmine Baer MD Primary Care Provider Encounter Details Date Type Department Care Team Description 03/06/2016 Orders Only Gastroenterology at [facility] Mat Nonalcoholic steatohepatitis (HORTON); [facility] Hilda Mckinley RN Type 2 [place] [address] Social History Tobacco Use Types Packs/Day Years Used Date Never Smoker Smokeless Tobacco: Never Used Alcohol Use Standard Drinks/Week Comments No 0 (1 standard drink = 0.6 oz pure alcoho l) Sex Assigned at Date Recorded Not on file documented as of this encounter Progress Notes Sona Rivero RN - 03/06/2016 11:13 AM EDT Lab cannot process orders from . Ask for re-entry with another provider name. documented in this encounter Plan of Treatment Upcoming Encounters Date Type Specialty Care Team Description 06/19/2022 Office Visit Rheumatology Richi Blackmon MD [facility] ER DR RHEUMATOLOGY [place], [place] [address] (Wo rk) Scheduled Procedures Name Priority Associated Diagnoses Date/Time EGD, UPPER GI ENDOSCOPY Family hx of colon cance r COLONOSCOPY, DIAGNOSTIC Family hx of colon cance r documented as of this encounter Results (ABNORMAL) Lipid panel (fasting) (03/06/2016 11:46 AM EDT) athologist Signature Chol, Total 208 (H) <=199 [facility] mg/dL [facility] Comment: Recommendations of the NCEP Adult Treatm ent Panel for the following risk cutoff thresholds for the [place] popul[place] n: Desirable: <200 mg/dL Borderline High: 200-239 mg/dL High: > or = 240 mg/dL Triglycerides 346 (H) <=149 mg/dL [facility] Comment: Reference Range: Normal triglycerides: ??<150 mg/dL Borderline high: ??150-199 mg/dL High: ??200-499 mg/dL Very high: ??>hb=089 mg/dL BRIDGETT 2001; 285(19):1560-3670 HDL 27 (L) >=40 mg/dL [facility] Comment: Reference range: ??Low HDL: ?? < 40 mg/dL ??Normal: ?40-60 mg/dL ??Desirable: > 60 mg/dL [facility] 2001; 285(19):6879-4783 LDL Cholesterol 112 (H) <=99 mg/dL [facility] Comment: Reference range: ?? Optimal: ?<100 mg/dL ?? Near Optimal/Above Optimal: ?? 100-1 29 mg/dL ?? Borderline high: ?130-159 mg/dL ?? High: ? 160-189 mg/dL ?? Very high: ?>qy=278 mg/dL [facility] 2001: 285(19):6253-6434 Chol/HDL Ratio 7.7 ratio [facility] Comment: A Cholesterol to HDL ratio below 4:1 is desirable. ??Studies suggest that increased CAD risk occurs at ratios abov e 5 for females and above 6 for men. ? [place] Heart Association ??(htt p://www.americanheart.org) ? Marlin Int Med, 1994; 121:641 ? AM J Med, 1998; 105(1A):48S Specimen Anatomical Collection Method Collection Time Receive d Time (Source) Location / / Volume Laterality Blood specimen 03/06/2016 11:46 6 (specimen) AM EDT 11:55 AM EDT Resulting Agency Comment Spec In Lab Rhiannon Headley MD CHEMISTRY ORDERABLES Performing Organization Address City/State/[place] [address] (ABNORMAL) Comprehensive metabolic panel (non-fasting) (03/06/2016 11:46 AM EDT) athologist Signature Glucose Lvl 116 65 - 199 [facility] mg/dL [facility] Comment: Diabetes: >=200 mg/dL plus symp toms BUN 40 (H) 10 - 20 mg/dL [facility] Creatinine 1.28 0.80 - 1.50 mg/dL [facility] Comment: Please note that the pediatric reference intervals supplied above were not validated at [facility]. Results from pediatri c patients should be interpreted in conjunction to the patient's age, height and muscle mass. Sodium 140 135 - 145 mmol/L [facility] Potassium 4.1 3.5 - 5.0 mmol/L [facility] Comment: Please note: ??Patients with WBC >100,00 0 may have falsely elevated Potassium levels. ??For accurate Potassium quantif ication in these patients send serum separator tube (gold top) for subsequent determinations. ??Contact the Clinical Chemistry Laboratory if there are any qu estions. Chloride 102 98 - 107 mmol/L [facility] CO2 22 22 - 31 mmol/L [facility] Anion Gap 16 (H) 5 - 15 mmol/L [facility] Calcium 9.1 8.5 - 10.5 mg/dL [facility] Total Protein 9.3 (H) 6.1 - 8.0 gm/dL [facility] Albumin 3.6 3.2 - 5.2 gm/dL [facility] AST 29 0 - 39 unit/L [facility] ALT 23 0 - 55 unit/L [facility] Alk Phos 93 40 - 120 unit/L [facility] Total Bilirubin 0.7 0.2 - 1.3 mg/dL [facility] Bili, Direct 0.2 0.0 - 0.3 mg/dL [facility] Estimated GFR 58 (L) >=60 [facility] Comment: This estimated GFR (eGFR) [...] the following links into your internet browser. [email or web address] [email or web address] Specimen Anatomical Collection Method Collection Time Receive d Time (Source) Location / / Volume Laterality Blood specimen 03/06/2016 11:46 6 (specimen) AM EDT 11:55 AM EDT Resulting Agency Comment Spec In Lab Rhiannon Headley MD CHEMISTRY ORDERABLES Performing Organization Address City/State/[place] [address] Prothrombin Time (03/06/2016 11:46 AM EDT) P athologist Signature PT 14.3 12.0 - 15.0 [facility] LABORATORY Comment: An INR <2.0 indicates [...] linical circumstances. INR 1.1 0.9 - 1.1 [facility] Specimen Anatomical Collection Method Collection Time Receive d Time (Source) Location / / Volume Laterality Blood specimen 03/06/2016 11:46 6 (specimen) AM EDT 11:54 AM EDT Resulting Agency Comment Spec In Lab Rhiannon Headley MD HEMATOLOGY ORDERABLES Performing Organization Address City/State/[place] [address] (ABNORMAL) Hemoglobin A1c (03/06/2016 11:46 AM EDT) Analysis Performed At Patho logist Time Signature Hemoglobin A1C 6.3 (H) 4.3 - 5.6 [facility] Comment: Reference Range: 4.3 [...] 36: Suppl. 1, S67-74 Est Avg Gluc 134 mg/dL [facility] Comment: eAG equivalents for HbA1c percentages: HbA1c(%) ?eAG(mg/dL) 6.0 ?126 6.5 ?140 7.0 ?154 7.5 ?169 8.0 ?183 8.5 ?197 9.0 ?212 9.5 ?226 10.0 ? 240 Limitations: The eAG calculation has not been validated on women, individuals below 18 years old and above 70 years old, and individuals with hemoglobinopathies. Additional resources are available on [employer] website: [email or web address] José FLORES, Chaz J, Jeff R, et al. ??Tr anslating the A1C assay into estimated average glucose values. ??Diabetes Care 2008:31(8):4062-2146. Specimen Anatomical Collection Method Collection Time Receive d Time (Source) Location / / Volume Laterality Blood specimen 03/06/2016 11:46 6 (specimen) AM EDT 11:55 AM EDT Resulting Agency Comment Spec In Lab Rhiannon Headley MD CHEMISTRY ORDERABLES Performing Organization Address City/State/[place] [address] documented in this encounter Visit Diagnoses Diagnosis Nonalcoholic steatohepatitis (HORTON) Other chronic nonalcoholic liver disease Type 2 diabetes mellitus without complic ation documented in this encounter Care Teams Auto Body Detailer Relationship Specialty Start Date End Date Jazmine Baer MD PCP - General 11/07/10 [address] [place] [address] documented as of this encounter
--- OUTSIDE RECORDS SUMMARY | 2022-04-11 10:53 | XMS_ITS | Encounter Summary ---
:1960 Author Organization [facility] [place] [address] Care Team Providers Name Role Phone Jazmine Baer MD Primary Care Provider Encounter Details Date Type Department Care Team Description 01/18/2016 Orders Only [place] [facility] Akash Prieto MD [facility] [place] [address] RHEUMATOLOGY DEPT. [phone] [place], [place] [address] (Wo rk) Social History Tobacco [...] Visit Rheumatology Richi Blackmon MD [facility] RHEUMATOLOGY DEP [place], [place] [address] (Wo rk) Scheduled Procedures Name Priority Associated Diagnoses Date/Time EGD, UPPER GI ENDOSCOPY Family hx of colon cance r COLONOSCOPY, DIAGNOSTIC Family hx of colon cance r documented as of this encounter Visit Diagnoses Diagnosis Myopathy Myopathy, unspecified documented in this encounter Care Teams English Composition Teacher Relationship Specialty Start Date End Date Jazmine Baer MD PCP - General 11/07/10 [address] [place] [address] (work) documented as of this encounter
--- OUTSIDE RECORDS SUMMARY | 2022-04-11 10:53 | XMS_ITS | Encounter Summary ---
:1960 Author Organization [facility] [place] [address] Care Team Providers Name Role Phone Jazmine Baer MD Primary Care Provider Encounter Details Date Type Department Care Team Description 03/15/2016 Office Visit Neurology at [facility] Henrry Gleason, Necrotizing myopathy [facility] [place] [address] NEUROLOGY DEPT. 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 Getting IV solumedrol every 4 wks (1 gm). BS's under good control. His CPK was 2300 in December. CK 644 on 02/29/16.?? He is now walking with a walker. He is a heavy man at 268 pounds. Trying to do some walking. Walking better than in December. ? Port placed several mos ago. Fe levels very low (0). ? He denies any bowel or bladder dysfunction or any shortness of breath or chest pain. Still some leg swelling which is getting better with walking. ? On exam CN'2 2-12 OK. Arms [...] be on something to suppress hisimmune system. Perhaps Dr. Prieto will have an opinion in this regard. His CK is coming down and hisstrength is quite good. Will try to followup with him in May. He is to contact me with any questions. [place] blood [place]. His other medical issues are being attended to. He is to see hematology here tomorrow. documented in this encounter Plan of Treatment Upcoming Encounters Date Type Specialty Care Team Description 06/19/2022 Office Visit Rheumatology Richi Blackmon MD [facility] DR RHEUMATOLOGY [place], [place] [address] (Wo rk) Scheduled Procedures Name Priority Associated Diagnoses Date/Time EGD, UPPER GI ENDOSCOPY Family hx of colon cance r COLONOSCOPY, DIAGNOSTIC Family hx of colon cance r documented as of this encounter Visit Diagnoses Diagnosis Necrotizing myopathy Other myopathies documented in this encounter Care Teams Drop Worker Relationship Specialty Start Date End Date Jazmine Baer MD PCP - General 11/07/10 [address] [place] [address] documented as of this encounter
--- OUTSIDE RECORDS SUMMARY | 2022-04-11 10:53 | XMS_ITS | Encounter Summary ---
:1960 Author Organization [facility] [place] [address] Care Team Providers Name Role Phone Jazmine Baer MD Primary Care Provider Encounter Details Date Type Department Care Team Description 08/19/2015 Laboratory Appointment Lab 3L [facility]; [facility] 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 [id number] Social History Tobacco Use Types Packs/Day Years [...] Visit Rheumatology Richi Blackmon MD [facility] RHEUMATOLOGY [place], [place] [address] (Wo rk) Scheduled Procedures Name Priority Associated Diagnoses Date/Time EGD, UPPER GI ENDOSCOPY Family hx of colon cance r COLONOSCOPY, DIAGNOSTIC Family hx of colon cance r documented as of this encounter Procedures Procedure Name Priority Date/Time Associated Comments Diagnosis IRON AND TIBC Routine 08/19/2015 12:25 Liver cirrhosis Results for this PM EST secondary to HORTON procedure are in the results section. ABO/RH TYPING Routine 08/19/2015 12:25 Results fo r this PM EST procedure are i n the results section. ANTIBODY SCREEN Routine 08/19/2015 12:25 Results for this PM EST procedure are i n the results section. DIRECT ANTIGLOBULIN Routine 08/19/2015 12:25 Liver cirrhosis R esults for this TEST PM EST secondary to HORTON procedure are in the results section. HAPTOGLOBIN Routine 08/19/2015 12:25 Results for this PM EST procedure are i n the results section. FERRITIN Routine 08/19/2015 12:25 Liver cirrhosis Results for this PM EST secondary to HORTON procedure are in the results section. HEMOGRAM Routine 08/19/2015 10:13 Myopathy Results for this AM EST procedure are i n the results section. DIFFERENTIAL, Routine 08/19/2015 10:13 Myopathy Results fo r this AUTOMATED AM EST procedure are i n the results section. PROTHROMBIN TIME Routine 08/19/2015 10:13 Liver cirrhosis Resu lts for this AM EST secondary to HORTON procedure are in the results section. CBC (WITH DIFF) Routine 08/19/2015 10:13 Myopathy AM EST LACTATE DEHYDROGENASE Routine 08/19/2015 10:13 Re sults for this AM EST procedure are i n the results section. COMPREHENSIVE Routine 08/19/2015 10:13 Myopathy Results fo r this METABOLIC PANEL AM EST procedure ar e in (NON-FASTING) the results section. documented in this encounter Results Haptoglobin (08/19/2015 12:25 PM EST) P athologist Signature Haptoglobin 151 30 - 200 [facility] mg/dL [facility] Comment: Haptoglobin concentrations in newborns i s low to undetectable; however, adult concentrations are usually attained by 4 months of age. ??No sex-related differences for haptoglobin have been de tected. Specimen Anatomical Collection Method Collection Time Receive d Time (Source) Location / / Volume Laterality Blood specimen Venous Draw / 08/19/2015 12:25 08/19/19 16 (specimen) Unknown PM EST 12:44 PM EST Resulting Agency Comment Spec In Lab Anastasia Mccauley MD CHEMISTRY ORDERABLES Performing Organization Address City/State/[place] [address] Antibody screen (08/19/2015 12:25 PM EST) Patholo gist Method Time Signature Ab Screen Negative [facility] LABORATORY Expires at 08/22/2015 [id number] on: [facility] Specimen Anatomical Collection Method Collection Time Receive d Time (Source) Location / / Volume Laterality Blood specimen Venous Draw / 08/19/2015 12:25 08/19/19 16 (specimen) Unknown PM EST 12:32 PM EST Resulting Agency Comment Spec In Lab Anastasia Mccauley MD BLOOD BANK ORDERABLES Performing Organization Address City/[facility]/ZIP Code Phon e Number [address] ABO/Rh Typing (08/19/2015 12:25 PM EST) P athologist Signature ABORh Type A Neg [facility] Specimen Anatomical Collection Method Collection Time Receive d Time (Source) Location / / Volume Laterality Blood specimen Venous Draw / 08/19/2015 12:25 08/19/19 16 (specimen) Unknown PM EST 12:32 PM EST Resulting Agency Comment Spec In Lab Anastasia Mccauley MD BLOOD BANK ORDERABLES Performing Organization Address City/[facility]/ZIP Code Phon e Number [address] Direct antiglobulin test (08/19/2015 12:25 PM EST) P athologist Signature JOHANNY Positive [facility] JOHANNY IgG Positive [facility] JOHANNY C3 Negative [facility] Specimen Anatomical Collection Method Collection Time Receive d Time (Source) Location / / Volume Laterality Blood specimen 08/19/2015 12:25 6 (specimen) PM EST 12:32 PM EST Resulting Agency Comment Spec In Lab Anastasia Mccauley MD BLOOD BANK ORDERABLES Performing Organization Address City/[facility]/[place] [address] (ABNORMAL) Iron and TIBC (08/19/2015 12:25 PM EST) P athologist Signature Iron 54 45 - 160 [facility] mcg/dL [facility] TIBC 385 250 - 450 [facility]/dL [facility] Iron Saturation 14 (L) 20 - 50 % [facility] Specimen Anatomical Collection Method Collection Time Receive d Time (Source) Location / / Volume Laterality Blood specimen 08/19/2015 12:25 6 (specimen) PM EST 12:33 PM EST Resulting Agency Comment Spec In Lab Anastasia Mccauley MD CHEMISTRY ORDERABLES Performing Organization Address City/[facility]/ZIP Code Phon e Number [address] Ferritin (08/19/2015 12:25 PM EST) P athologist Signature Ferritin 64 30 - 400 [facility] ng/mL [facility] Comment: Pediatric reference ranges not verified at [facility], interpret with caution. Reference ranges for females greater kayleigh n 50 years of age approach values for men, i.e., 30-400 ng/mL. Specimen Anatomical Collection Method Collection Time Receive d Time (Source) Location / / Volume Laterality Blood specimen 08/19/2015 12:25 6 (specimen) PM EST 12:33 PM EST Resulting Agency Comment Spec In Lab Anastasia Mccauley MD CHEMISTRY ORDERABLES Performing Organization Address City/[facility]/[place] [address] (ABNORMAL) Lactate Dehydrogenase (08/19/2015 10:13 AM EST) athologist Signature LDH 271 (H) 110 - 220 [facility] unit/L [facility] Specimen Anatomical Collection Method Collection Time Receive d Time (Source) Location / / Volume Laterality Blood specimen Venous Draw / 08/19/2015 10:13 08/19/19 16 (specimen) Unknown AM EST 10:22 AM EST Resulting Agency Comment Spec In Lab Ana Zamora MD CHEMISTRY ORDERABLES Performing Organization Address City/[facility]/ZIP Code Phon e Number [address] (ABNORMAL) Differential, Automated (08/19/2015 10:13 AM EST) Patholo gist Method Time Signature Neutrophils % 65.1 % [facility] Neutr Abs (ANC) 2.43 1.50 - [facility] 6.30 [facility] x10(3)/[facility] LABORATORY Lymphocytes % 18.7 % [facility] Lymphocytes Abs 0.7 (L) 1.0 - 3.6 [facility] x10(3)/[facility] LABORATORY Monocytes % 12.8 % [facility] Monocyte Abs 0.5 0.2 - 1.0 [facility] x10(3)/[facility] LABORATORY Eosinophils % 2.1 % [facility] Eosinophils Abs 0.1 0.0 - 0.5 [facility] x10(3)/[facility] LABORATORY Basophils % 0.8 % [facility] Basophils Abs 0.0 0.0 - 0.2 [facility] x10(3)/[facility] LABORATORY Immature Gran % 0.50 % [facility] Comment: Immature granulocytes(IG's)percentage an d absolute count will include metamyelocytes, myelocytes, and promyelo cytes. Blood smears from CBCs yielding IG's will be scanned manually for concor dance. If this scan disagrees with the automated IG or if promyelocytes are not ed, a manual differential will be performed. Tamara Gran Abs 0.02 0.00 - 0.05 x10(3)/[facility] Specimen Anatomical Collection Method Collection Time Receive d Time (Source) Location / / Volume Laterality Blood specimen 08/19/2015 10:13 6 (specimen) AM EST 10:17 AM EST Resulting Agency Comment Spec In Lab Ana Zamora MD HEMATOLOGY ORDERABLES Performing Organization Address City/State/[place] [address] (ABNORMAL) Hemogram (08/19/2015 10:13 AM EST) P athologist Signature WBC 3.7 (L) 4.0 - 10.0 [facility] x10(3)/[facility] LABORATORY RBC 3.34 (L) 4.63 - [facility] 6.08 [facility] x10(6)/[facility] LABORATORY Hemoglobin 9.2 (L) 13.7 - [facility] 17.5 gm/dL [facility] Hematocrit 29.0 (L) 40.0 - [facility] 51.0 % [facility] MCV 86.8 79.0 - [facility] 92.0 [facility] LABORATORY MCH 27.5 25.6 - [facility] 32.2 pg [facility] MCHC 31.7 (L) 32.0 - [facility] 36.5 gm/dL [facility] Platelets 115 (L) 145 - 370 [place] [facility] x10(3)/[facility] LABORATORY RDWSD 53.2 (H) 35.0 - [place] [facility] 46.0 [facility] LABORATORY RDWCV 16.6 (H) 10.9 - [place] 14.4 % [facility] MPV 11.7 9.0 - 12.0 [facility] LABORATORY Specimen Anatomical Collection Method Collection Time Receive d Time (Source) Location / / Volume Laterality Blood specimen 08/19/2015 10:13 6 (specimen) AM EST 10:17 AM EST Resulting Agency Comment Spec In Lab Ana Zamora MD HEMATOLOGY ORDERABLES Performing Organization Address City/[facility]/[place] [address] Prothrombin Time (08/19/2015 10:13 AM EST) P athologist Signature PT 14.7 12.0 - 15.0 [facility] LABORATORY Comment: An INR <2.0 indicates adequate [...] linical circumstances. INR 1.1 0.9 - 1.1 [facility] Specimen Anatomical Collection Method Collection Time Receive d Time (Source) Location / / Volume Laterality Blood specimen 08/19/2015 10:13 6 (specimen) AM EST 10:17 AM EST Resulting Agency Comment Spec In Lab Anastasia Mccauley MD HEMATOLOGY ORDERABLES Performing Organization Address City/[facility]/[place] [address] (ABNORMAL) Comprehensive metabolic panel (non-fasting) (08/19/2015 10:13 AM EST) P athologist Signature Glucose Lvl 130 65 - 199 [facility] mg/dL [facility] Comment: Diabetes: >=200 mg/dL plus symp toms BUN 32 (H) 10 - 20 mg/dL [facility] Creatinine 1.29 0.80 - 1.50 mg/dL [facility] Comment: Please note that the pediatric reference intervals supplied above were not validated at [facility]. Results from pediatri c patients should be interpreted in conjunction to the patient's age, height and muscle mass. Sodium 141 135 - 145 mmol/L [facility] Potassium 5.1 (H) 3.5 - 5.0 mmol/L [facility] Comment: Please note: ??Patients with WBC >100,00 0 may have falsely elevated Potassium levels. ??For accurate Potassium quantif ication in these patients send serum separator tube (gold top) for subsequent determinations. ??Contact the Clinical Chemistry Laboratory if there are any qu estions. Chloride 107 98 - 107 mmol/L [facility] CO2 21 (L) 22 - 31 mmol/L [facility] Anion Gap 13 5 - 15 mmol/L [facility] Calcium 9.2 8.5 - 10.5 mg/dL [facility] Total Protein 9.7 (H) 6.1 - 8.0 gm/dL [facility] Albumin 3.3 3.2 - 5.2 gm/dL [facility] AST 56 (H) 0 - 39 unit/L [facility] ALT 44 0 - 55 unit/L [facility] Alk Phos 94 40 - 120 unit/L [facility] Total Bilirubin 0.5 0.2 - 1.3 mg/dL [facility] Bili, Direct 0.1 0.0 - 0.3 mg/dL [facility] Estimated GFR 57 (L) >=60 [facility] Comment: This estimated GFR (eGFR) [...] the following links into your internet browser. 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
--- OUTSIDE RECORDS SUMMARY | 2022-04-11 10:53 | XMS_ITS | Encounter Summary ---
:1960 Author Organization [facility] [place] [address] Care Team Providers Name Role Phone Jazmine Baer MD Primary Care Provider Encounter Details Date Type Department Care Team Description 03/19/2016 Orders Only Hematology and Oncology at Jessica Valerio MD [facility] Hilda shafer HEMATOLOGY/[place] [address] [place] [address] [phone] (Wo rk) Social History Tobacco Use Types [...] Blackmon MD [facility] ER DR RHEUMATOLOGY [place], [place] [address] (Wo rk) Scheduled Orders Name Type Priority Associated Diagnoses Order S chedule ([facility] MSURG)BONE Procedures Routine One Time for 1 MARROW ASP PERFORMED Occurre nces starting W/BX THRU BX INCISION 2015 until 03/19/2016 ([facility] MSURG) UNILAT Procedures Routine One Time for 1 BONE MARROW BIOSPY Occurrenc es starting 03/19/2016 unti l 03/19/2016 Scheduled Procedures Name Priority Associated Diagnoses Date/Time EGD, UPPER GI ENDOSCOPY Family hx of colon cance r COLONOSCOPY, DIAGNOSTIC Family hx of colon cance r documented as of this encounter Visit Diagnoses Not on filedocumented in this encounter Care Teams Drum Puller Relationship Specialty Start Date End Date Jazmine Baer MD PCP - General 11/07/10 [address] [place] [address] documented as of this encounter
--- OUTSIDE RECORDS SUMMARY | 2022-04-11 10:53 | XMS_ITS | Encounter Summary ---
:1960 Author Organization [facility] [place] [address] Care Team Providers Name Role Phone Jazmine Baer MD Primary Care Provider Reason for Visit Reason Onset Date Comments Prior Authorization 01/20/2016 Encounter Details Date Type Department Care Team Description 01/20/2016 Telephone Rheumatology at [facility] Jojo Viramont[place] [address] Social History Tobacco Use Types Packs/Day Years Used Date Never Smoker Smokeless Tobacco: Never Used Alcohol Use Standard Drinks/Week Comments No 0 (1 standard drink = 0.6 oz pure alcoho l) Sex Assigned at Date Recorded Not on file documented as of this encounter Miscellaneous Notes Telephone Encounter - Jojo Viramontes - 01/23/2016 11:46 AM EDT PA for Imuran 50 mg is denied. Indication is not approved by the FDA. Telephone Encounter - Jojo Viramontes - 01/20/2016 1:57 PM EDT PA for Imuran sent to plan via CM. documented in this encounter Plan of Treatment Upcoming Encounters Date Type Specialty Care Team Description 06/19/2022 Office Visit Rheumatology Richi Blackmon MD [facility] DR RHEUMATOLOGY [place], [place] [address] (Wo rk) Scheduled Procedures Name Priority Associated Diagnoses Date/Time EGD, UPPER GI ENDOSCOPY Family hx of colon cance r COLONOSCOPY, DIAGNOSTIC Family hx of colon cance r documented as of this encounter Visit Diagnoses Not on filedocumented in this encounter Care Teams [employer] Police Sergeant Relationship Specialty Start Date End Date Jazmine Baer MD PCP - General 11/07/10 [address] [place] [address] documented as of this encounter
--- OUTSIDE RECORDS SUMMARY | 2022-04-11 10:53 | XMS_ITS | Encounter Summary ---
:1960 Author Organization [facility] [place] [address] Care Team Providers Name Role Phone Jazmine Baer MD Primary Care Provider Reason for Visit Reason Onset Date Comments Medication Refill 12/19/2015 Encounter Details Date Type Department Care Team Description 12/19/2015 Refill [facility]rology at [facility] Henrry Gleason MD Necrotizing myopathy [facility] [place] [address] NEUROLOGY DEPT. 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 Given. Rx also sent in as 60 tablets which is only enough for 1/2 month. Will correct the amt and pend rx to Dr Gleason. Unsure that this dx will support coverage for Cellcept. Telephone Encounter - Gail Contreras - 12/19/2015 4:11 PM EDT [place] from [facility] specialty pharmacy called with questions regarding this patients prescription for mycophenolate CELLCEPT 250mg capsule. Please call to discuss documented in this encounter Plan of Treatment Upcoming Encounters Date Type Specialty Care Team Description 06/19/2022 Office Visit Rheumatology Richi Blackmon MD [facility] ER DR RHEUMATOLOGY [place], [place] [address] (Wo rk) Scheduled Procedures Name Priority Associated Diagnoses Date/Time EGD, UPPER GI ENDOSCOPY Family hx of colon cance r COLONOSCOPY, DIAGNOSTIC Family hx of colon cance r documented as of this encounter Visit Diagnoses Diagnosis Necrotizing myopathy Other myopathies documented in this encounter Care Teams Diffusion Operator Relationship Specialty Start Date End Date aJzmine Baer MD PCP - General 11/07/10 [address] [place] [address] documented as of this encounter
--- OUTSIDE RECORDS SUMMARY | 2022-04-11 10:53 | XMS_ITS | Encounter Summary ---
:1960 Author Organization [facility] [place] [address] Care Team Providers Name Role Phone Jazmine Baer MD Primary Care Provider Encounter Details Date Type Department Care Team Description 12/15/2015 Office Visit Neurology at [facility] Henrry Gleason, Necrotizing myopathy [facility] [place] [address] NEUROLOGY DEPT. [place], [place] [address] Social History Tobacco Use Types Packs/Day Years Used Date Never Smoker Smokeless Tobacco: Never Used Alcohol Use Standard Drinks/Week Comments No 0 (1 standard drink = 0.6 oz pure alcoho l) Sex Assigned at Date Recorded Not on file documented as of this encounter Last Filed Vital Signs Vital Sign Reading Time Taken Comments Blood Pressure 142/88 12/15/2015 2:17 PM EDT Pulse 68 12/15/2015 2:17 PM EDT Temperature - - Respiratory Rate - - Oxygen Saturation - - Inhaled Oxygen Concentration - - Weight 120.2 kg (265 lb) 12/15/2015 2:17 PM EDT Height 175.3 cm (5' 9) 12/15/2015 2:17 PM EDT Body Mass Index 39.13 12/15/2015 2:17 PM EDT documented in this encounter Progress Notes Henrry Gleason MD - 12/15/2015 2:37 PM EDT 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 Getting IV solumedrol every 4 wks (1 gm). BS's under good control. His CPK has gone down by 700 in 4 weeks. It is now 2300 as of last week.?? He is now walking with a walker. He is a heavy man at 275 pounds. Trying to do some walking, but no PT at present. ?? Was to get a port placed but nothing has happened. ?? He denies any bowel or bladder dysfunction or any shortness of breath or chest pain. Some leg swelling which is getting better with walking. ?? On exam CN'2 2-12 OK. Arms are [...] muscles. He is walking with a walker. ?? Talked to Dr. Prieto today. We will start some cellcept today 500mg BID. If his counts are good in 2-3 weeks we will likely go up on dose to 1000mg BID. His legs are fairly strong Today. He needs to lose weight. Serial CK's being checked. Will followup with him in 3 mos.?? documented in this encounter Plan of Treatment Upcoming Encounters Date Type Specialty Care Team Description 06/19/2022 Office Visit Rheumatology Richi Blackmon MD [facility] DR RHEUMATOLOGY [place], [place] [address] (Wo rk) Scheduled Procedures Name Priority Associated Diagnoses Date/Time EGD, UPPER GI ENDOSCOPY Family hx of colon cance r COLONOSCOPY, DIAGNOSTIC Family hx of colon cance r documented as of this encounter Visit Diagnoses Diagnosis Necrotizing myopathy Other myopathies documented in this encounter Care Teams Utility Worker Forge Relationship Specialty Start Date End Date Jazmine Baer MD PCP - General 11/07/10 [address] [place], [place] [address] documented as of this encounter
--- OUTSIDE RECORDS SUMMARY | 2022-04-11 10:53 | XMS_ITS | Encounter Summary ---
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; Appointment [facility] Nonalcoho lic steatohepatitis (HORTON); [facility] Type 2 diabetes mellitus [place] [id number] Social History Tobacco Use Types Packs/Day Years [...] Richi Blackmon MD [facility] ER DR RHEUMATOLOGY [place], [place] [address] (Wo rk) Scheduled Procedures Name Priority Associated Diagnoses Date/Time EGD, UPPER GI ENDOSCOPY Family hx of colon cance r COLONOSCOPY, DIAGNOSTIC Family hx of colon cance r documented as of this encounter Procedures Procedure Name Priority Date/Time Associated Diagnosis Comme nts HEMOGRAM Routine 03/06/2016 11:46 Results for this AM EDT procedure are i n the results section. DIFFERENTIAL, Routine 03/06/2016 11:46 Results fo r this AUTOMATED AM EDT procedure are i n the results section. PROTHROMBIN TIME Routine 03/06/2016 11:46 Nonalcoholic Results for this AM EDT steatohepatitis (HORTON) proce dure are in the results section. HEMOGLOBIN A1C Routine 03/06/2016 11:46 Nonalcoholic Results f or this AM EDT steatohepatitis (HORTON) procedure are in Type 2 diabetes the results mellitus without section. complication LIPID PANEL (REFLEX Routine 03/06/2016 11:46 Nonalcoholic Resu lts for this DIRECT LDL) AM EDT steatohepatitis (HORTON) proce dure are in the results section. COMPREHENSIVE Routine 03/06/2016 11:46 Nonalcoholic Results fo r this METABOLIC PANEL AM EDT steatohepatitis (HORTON) pr ocedure are in (NON-FASTING) the results section. documented in this encounter Results Differential, Automated (03/06/2016 11:46 AM EDT) athologist Signature Neutrophils % 71.2 % [facility] Neutr Abs (ANC) 3.88 1.70 - [facility] 6.10 [facility] x10(3)/[facility] LABORATORY Lymphocytes % 19.4 % [facility] Lymphocytes Abs 1.1 0.9 - 3.2 [facility] x10(3)/[facility] LABORATORY Monocytes % 7.5 % [facility] Monocyte Abs 0.4 0.3 - 0.9 [facility] x10(3)/[facility] LABORATORY Eosinophils % 1.1 % [facility] Eosinophils Abs 0.1 0.0 - 0.4 [facility] x10(3)/[facility] LABORATORY Basophils % 0.4 % [facility] Basophils Abs 0.0 0.0 - 0.1 [facility] x10(3)/[facility] LABORATORY Immature Gran % 0.40 % [facility] Comment: Immature granulocytes(IG's)percentage an d absolute count will include metamyelocytes, myelocytes, and promyelo cytes. Blood smears from CBCs yielding IG's will be scanned manually for concor dance. If this scan disagrees with the automated IG or if promyelocytes are not ed, a manual differential will be performed. Tamara Gran Abs 0.02 0.00 - 0.04 x10(3)/[facility] Specimen Anatomical Collection Method Collection Time Receive d Time (Source) Location / / Volume Laterality Blood specimen Venous Draw / 03/06/2016 11:46 03/06/20 16 2:07 (specimen) Unknown AM EDT PM EDT Resulting Agency Comment Spec In Lab Rhiannon Headley MD HEMATOLOGY ORDERABLES Performing Organization Address City/State/[place] [address] (ABNORMAL) Hemogram (03/06/2016 11:46 AM EDT) Analysis Performed At Patho logist Time Signature WBC 5.4 4.0 - 9.5 [facility] x10(3)/[facility] LABORATORY RBC 3.94 (L) 4.58 - [facility] x10(6)/[facility] LABORATORY Hemoglobin 10.8 (L) 13.7 - [facility] 16.5 gm/dL [facility] Hematocrit 33.7 (L) 40.5 - [facility] 48.5 % [facility] MCV 85.5 82.9 - [facility] 93.1 [facility] LABORATORY MCH 27.4 (L) 27.5 - [facility] 32.1 pg [facility] MCHC 32.0 32.0 - [facility] 35.7 gm/dL [facility] Platelets 121 (L) 145 - 357 [facility] x10(3)/[facility] LABORATORY RDWSD 53.1 (H) 36.0 - [facility] 45.0 [facility] LABORATORY RDWCV 17.2 (H) 11.4 - [facility] JUVENTINO 13.8 % [facility] MPV 11.9 7.6 - 12.9 [facility] LABORATORY nRBC % Auto 0.0 % [facility] nRBC Abs Auto 0.000 0.000 - [facility] 0.000 [facility] x10(3)/[facility] LABORATORY Specimen Anatomical Collection Method Collection Time Receive d Time (Source) Location / / Volume Laterality Blood specimen Venous Draw / 03/06/2016 11:46 03/06/20 16 2:07 (specimen) Unknown AM EDT PM EDT Resulting Agency Comment Spec In Lab Rhiannon Headley MD HEMATOLOGY ORDERABLES Performing Organization Address City/[facility]/[place] [address] Prothrombin Time (03/06/2016 11:46 AM EDT) P athologist Signature PT 14.3 12.0 - 15.0 [facility] LABORATORY Comment: An INR <2.0 indicates [...] linical circumstances. INR 1.1 0.9 - 1.1 [facility] Specimen Anatomical Collection Method Collection Time Receive d Time (Source) Location / / Volume Laterality Blood specimen 03/06/2016 11:46 6 (specimen) AM EDT 11:54 AM EDT Resulting Agency Comment Spec In Lab Rhiannon Headley MD HEMATOLOGY ORDERABLES Performing Organization Address City/[facility]/[place] [address] (ABNORMAL) Lipid panel (fasting) (03/06/2016 11:46 AM EDT) P athologist Signature Chol, Total 208 (H) <=199 [facility] mg/dL [facility] Comment: Recommendations of the NCEP Adult Treatm ent Panel for the following risk cutoff thresholds for the [place] popul[place] n: Desirable: <200 mg/dL Borderline High: 200-239 mg/dL High: > or = 240 mg/dL Triglycerides 346 (H) <=149 mg/dL [facility] Comment: Reference Range: Normal triglycerides: ??<150 mg/dL Borderline high: ??150-199 mg/dL High: ??200-499 mg/dL Very high: ??>gt=127 mg/dL BRIDGETT 2001; 285(19):4916-3967 HDL 27 (L) >=40 mg/dL [facility] Comment: Reference range: ??Low HDL: ?? < 40 mg/dL ??Normal: ?40-60 mg/dL ??Desirable: > 60 mg/dL BRIDGETT 2001; 285(19):0896-7332 LDL Cholesterol 112 (H) <=99 mg/dL [facility] Comment: Reference range: ?? Optimal: ?<100 mg/dL ?? Near Optimal/Above Optimal: ?? 100-1 29 mg/dL ?? Borderline high: ?130-159 mg/dL ?? High: ? 160-189 mg/dL ?? Very high: ?>ph=344 mg/dL RBIDGETT 2001: 285(19):8086-4037 Chol/HDL Ratio 7.[address] [facility] Comment: A Cholesterol to HDL ratio below 4:1 is desirable. ??Studies suggest that increased CAD risk occurs at ratios abov e 5 for females and above 6 for men. ? [place] [employer] ??(htt p://www.americanheart.org) ? Marlin Int Med, 1994; 121:641 ? AM J Med, 1998; 105(1A):48S Specimen Anatomical Collection Method Collection Time Receive d Time (Source) Location / / Volume Laterality Blood specimen 03/06/2016 11:46 6 (specimen) AM EDT 11:55 AM EDT Resulting Agency Comment Spec In Lab Rhiannon Headley MD CHEMISTRY ORDERABLES Performing Organization Address City/State/[place] [address] (ABNORMAL) Comprehensive metabolic panel (non-fasting) (03/06/2016 11:46 AM EDT) athologist Signature Glucose Lvl 116 65 - 199 [facility] mg/dL [facility] Comment: Diabetes: >=200 mg/dL plus symp toms BUN 40 (H) 10 - 20 mg/dL [facility] Creatinine 1.28 0.80 - 1.50 mg/dL [facility] Comment: Please note that the pediatric reference intervals supplied above were not validated at [facility]. Results from pediatri c patients should be [...] estions. Chloride 102 98 - 107 mmol/L [facility] CO2 22 22 - 31 mmol/L [facility] Anion Gap 16 (H) 5 - 15 mmol/L [facility] Calcium 9.1 8.5 - 10.5 mg/dL [facility] Total Protein 9.3 (H) 6.1 - 8.0 gm/dL [facility] Albumin 3.6 3.2 - 5.2 gm/dL [facility] AST 29 0 - 39 unit/L [facility] ALT 23 0 - 55 unit/L [facility] Alk Phos 93 40 - 120 unit/L [facility] Total Bilirubin 0.7 0.2 - 1.3 mg/dL [facility] Bili, Direct 0.2 0.0 - 0.3 mg/dL [facility] Estimated GFR 58 (L) >=60 [facility] Comment: This estimated [...] the following links into your internet browser. http://SvitStyle/DHnkdep [email or web address]://SvitStyle/DHMCnkf Specimen Anatomical Collection Method Collection Time Receive d Time (Source) Location / / Volume Laterality Blood specimen 03/06/2016 11:46 6 (specimen) AM EDT 11:55 AM EDT Resulting Agency Comment Spec In Lab Rhiannon Headley MD CHEMISTRY ORDERABLES Performing Organization Address City/State/[place] [address] (ABNORMAL) Hemoglobin A1c (03/06/2016 11:46 AM EDT) Analysis Performed At [facility] Time Signature Hemoglobin A1C 6.3 (H) 4.3 - 5.6 [facility] [...] Mellitus, Diabetes Care 2013; 36: Suppl. 1, Q54-85 Est Avg Gluc 134 mg/dL [facility] Comment: eAG equivalents for HbA1c percentages: HbA1c(%) ?eAG(mg/dL) 6.0 ?126 6.5 ?140 7.0 ?154 7.5 ?169 8.0 ?183 8.5 ?197 9.0 ?212 9.5 ?226 10.0 ? 240 Limitations: The eAG calculation has not been validated on women, individuals below 18 years old and above 70 years old, and individuals with hemoglobinopathies. Additional resources are available on [facility] website: [email or web address]/[facility] HE[facility]ON[facility]acalc José FLORES, Chaz J, Jeff R, et al. ??Tr anslating the A1C assay into estimated average glucose values. ??Diabetes Care 2008:31(8):7611-2630. 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
--- OUTSIDE RECORDS SUMMARY | 2022-04-11 10:53 | XMS_ITS | Encounter Summary ---
:1960 Author Organization [facility] [address] Care Team Providers Name Role Phone Jazmine Baer MD Primary Care Provider Reason for Visit Reason Comments Follow-up Encounter Details Date Type Department Care Team Description 12/15/2015 Office Visit Rheumatology at [facility] Akash Prieto MD [facility] [place] [address] RHEUMATOLOGY DEPT. [phone] [place] [address] (Wo rk) Social History Tobacco Use Types Packs/Day Years Used Date Never Smoker Smokeless Tobacco: Never Used Alcohol Use Standard Drinks/Week Comments No 0 (1 standard drink = 0.6 oz pure alcoho l) Sex Assigned at Date Recorded Not on file documented as of this encounter Last Filed Vital Signs Vital Sign Reading Time Taken Comments Blood Pressure 152/69 12/15/2015 11:43 AM EDT Pulse 68 12/15/2015 11:43 AM EDT Temperature 36.9 ??C (98.5 ??F) 12/15/2015 11:43 AM EDT Respiratory Rate 18 12/15/2015 11:43 AM EDT Oxygen Saturation 100% 12/15/2015 11:43 AM EDT Inhaled Oxygen Concentration - - Weight 120.2 kg (265 lb) 12/15/2015 11:43 AM EDT Height 175.3 cm (5' 9) 12/15/2015 11:43 AM EDT Body Mass Index 39.13 12/15/2015 11:43 AM EDT documented in this encounter Progress Notes Akash Prieto MD - 12/15/2015 12:05 PM EDT The patient is a 55-year-old male with statin-induced myopathy from 2008 which was characterized by SRMP-6 antibodies to the HMG-CoA reductase enzyme. His initial CKs were in the 10-11,000 range, and he has gotten a partial response from IVIG, most recently at 1 g/kg twice on 2 successive days each month. His CKs have gone down as low as 191, but recently, they have been in the 2-3000 range. Approximately 2 months ago, when I saw him last October 12, we added a gram of Solu-Medrol to each IVIG infusion, and that has improved his CKs down to about 2000, and he feels significantly stronger. Compared with the way he was when I first him, he is markedly improved. He is completely independent for ADLs, whereas before, it took 2-3 people to get him out of a chair. He is independent for walking, does not use any assistive device within the house, but when he is outside of the house, he uses a walker. He is able to dress himself, shower, bathe, toilet, etc. On exam, he is healthy appearing, very cushingoid. His blood pressure is 152/69. His pulse is 68. His respirations are 18. His pulse ox is 100. His temp is 98.5. His height is 69 inches. His weight is 265, down from 282. He has mild acne. His chest: He is ventilating better, and he is scheduled for PFTs. Unfortunately, he has never had PFTs in the past. 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 His proximal upper extremity strength is excellent. His proximal lower extremity strength is 4/5. I think he has made substantial improvement on the current regimen. I would leave him on this regimen. I do want to try additional treatment to reduce his CK and improve his strength even further. He has tried rituximab, CellCept, and methotrexate without improvement which leaves us with azathioprine and biologics including TNF inhibitors. I will discuss with Dr. Gleason which ones we want to try first in addition to what he is already on. I will follow up in 2 months. documented in this encounter Plan of Treatment Upcoming Encounters Date Type Specialty Care Team Description 06/19/2022 Office Visit Rheumatology Richi Blackmon MD [facility] DR RHEUMATOLOGY [place], [place] [address] (Wo rk) Scheduled Procedures Name Priority Associated Diagnoses Date/Time EGD, UPPER GI ENDOSCOPY Family hx of colon cance r COLONOSCOPY, DIAGNOSTIC Family hx of colon cance r documented as of this encounter Visit Diagnoses Diagnosis Myopathy Myopathy, unspecified documented in this encounter Care Teams Obiee Architect Relationship Specialty Start Date End Date Jazmine Baer MD PCP - General 11/07/10 [address] [place] [address] documented as of this encounter
--- OUTSIDE RECORDS SUMMARY | 2022-04-11 10:53 | XMS_ITS | Encounter Summary ---
:1960 Author Organization [facility] [place] [address] Care Team Providers Name Role Phone Jazmine Baer MD Primary Care Provider Reason for Visit Auth/Cert Specialty Diagnoses / Procedures Referred By Contact Refer red To Contact Diagnoses anemia ssess for varices, history of HORTON cirrhosis Procedures PRO UPPER GI ENDOSCOPY, DIAGNOSTIC EGD, UPPER GI ENDOSCOPY Referral ID Status Reason Start Date Expiration Date Visits Requ ested Visits Authorized [id number] 1 1 Encounter Details Date Type Department Care Team Description 08/30/2015 Hospital Encounter Gastroenterology at [facility] Anastasia Mccauley, [facility] [place] [address] [facility] [phone] [facility] [place], [place] [address] Social History Tobacco Use Types [...] better as expected. Saturday-Saturday Same Day Endo [phone] Otherwise contact [phone] and ask to speak to the human factors advisor lead container finisher Follow-up care is a mendez part of [...] Richi Blackmon MD [facility] DR RHEUMATOLOGY [place], [place] [address] (Wo rk) Scheduled Procedures Name [...] Volume Laterality 08/30/2015 3:48 PM EDT Anastasia Mccauley MD POINT OF CARE TEST ORDERABLE S UPPER GI ENDOSCOPY (08/30/2015 3:42 PM EDT) Component Value Ref Test Analysis Performed At [facility] Range Method Time Signature UPPER GI [facility] PROVATION ENDOSCOPY Endoscopy Patient Name: Bucky Acevedo ? Procedure Date: 08/30/2015 3:42 PM ? Date of : 1960 ? Age: 55 ? Order #: [id number] ? Procedure: ? Upper GI endoscopy Indications: ? Screening procedure, Anemia, histor y ? of HORTON cirrhosis. Providers: ? Sue Ceballos ? Kinza Howell T echnician Referring MD: ?Jazmine Baer MD [...] Signature POC Glucose 103 65 - 199 [facility] mg/dL [facility] Comment: Supplemental ranges: <140 mg/dL before meals <180 mg/dL all other times of the day Specimen Anatomical Collection Method Collection Time Receive d Time (Source) Location / / Volume Laterality Blood specimen 08/30/2015 3:40 PM 016 3:40 (specimen) EDT PM EDT Anastasia Mccauley MD POINT OF CARE TEST ORDERABLE S Performing Organization Address City/State/ZIP Code Phon e Number [place] [phone] documented in this encounter Visit Diagnoses Not on filedocumented in this encounter Active and Recently Administered Medications Times are shown in EDT. PRN Medication Order 08/28/2015 08/29/2015 08/30/2015 fentaNYL 50 mcg/mL multi-dose injection (CANCELED) 161 (Given - Provider: Sue Howell RN)161 (Given - Provider: Sue Howell RN)1619 (Given - Provider: Sue Howell, RN) ONCE PRN, Starting 08/30/15 at 1612, Until 08/30/15 at 1857, Intra- Operative (Intra-Procedure), Routine midazolam (PF) (VERSED) 1 mg/mL multi-dose injection (CANCELED) 161 (Given - Provider: Sue Howell, RN)1616 (Given - Provider: Sue Howell, RN)1619 (Given - Provider: Sue Howell, RN) ONCE PRN, Starting 08/30/15 at 1612, Until 08/30/15 at 1857, Intra- Operative (Intra-Procedure), Routine documented in this encounter Care Teams It Support Consultant Relationship Specialty Start Date End Date Jazmine Baer MD PCP - General 11/07/10 [address] [place] [address] documented as of this encounter
--- OUTSIDE RECORDS SUMMARY | 2022-04-11 10:54 | XMS_ITS | Encounter Summary ---
:1960 Author Organization [facility] [place] [address] Care Team Providers Name Role Phone Jazmine Baer MD Primary Care Provider Encounter Details Date Type Department Care Team Description 03/15/2015 Laboratory Appointment Lab 3L [facility] [place] [id number] Social History Tobacco Use Types Packs/Day Years [...] MD [facility] DR RHEUMATOLOGY [place], [place] [address] (Wo rk) Scheduled Procedures Name Priority Associated Diagnoses Date/Time EGD, UPPER GI ENDOSCOPY Family hx of colon cance r COLONOSCOPY, DIAGNOSTIC Family hx of colon cance r documented as of this encounter Procedures Procedure Name Priority Date/Time Associated Diagnosis Comme nts CHEMOTHERAPY SCAN 03/29/2015 12:00 AM EDT SEDIMENTATION RATE Routine 03/15/2015 10:45 AM Autoimmune Re sults for this EDT necrotizing myopathy procedu re are in the results section. CK Routine 03/15/2015 10:45 AM Autoimmune Results for this EDT necrotizing myopathy procedu re are in the results section. documented in this encounter Results SCAN DOC: CHEMOTHERAPY (03/29/2015 12:00 AM EDT) Narrative This result has an attachment that is no t available. Scanning Provider MEDIA MGR SCAN EXT ORDR/RSLT (ABNORMAL) Sedimentation rate (03/15/2015 10:45 AM EDT) P athologist Signature Sed Rate 93 (H) 0 - 15 CERNER mm/hr MILLENNIUM Specimen Anatomical Collection Method Collection Time Receive d Time (Source) Location / / Volume Laterality Blood specimen 03/15/2015 10:45 5 (specimen) AM EDT 10:58 AM EDT Resulting Agency Comment Spec In Lab Henrry Gleason MD HEMATOLOGY ORDERABLES Performing Organization Address City/State/ZIP Code Phon e Number [address] CERNER MILLENNIUM (ABNORMAL) CK (03/15/2015 10:45 AM EDT) athologist Signature CK, Total 316 (H) 0 - 200 CERNER unit/L MILLENNIUM Specimen Anatomical Collection Method Collection Time Receive d Time (Source) Location / / Volume Laterality Blood specimen 03/15/2015 10:45 5 (specimen) AM EDT 10:58 AM EDT Resulting Agency Comment Spec In Lab Henrry Gleason MD CHEMISTRY ORDERABLES Performing Organization Address City/[facility]/ZIP [facility] Ph[place] Number [address] CERNER [facility] documented in this encounter Visit Diagnoses Diagnosis Autoimmune necrotizing myopathy documented in this encounter Care Teams Burner Operator Relationship Specialty Start Date End Date Jazmine Baer MD PCP - General 11/07/10 [address] [place] [address] documented as of this encounter
--- OUTSIDE RECORDS SUMMARY | 2022-04-11 10:54 | XMS_ITS | Encounter Summary ---
:1960 Author Organization [place] [address] Care Team Providers Name Role Phone Jazmine Baer MD Primary Care Provider Encounter Details Date Type Department Care Team Description 08/25/2014 Office Visit Physical Therapy at [facility], DR JH Bunch; [facility] Ana Malik MD [facility] [place] [address] [place] [address] Mingo Taylor, PT [facility] PHYSICAL MEDICINE & [place] [address] Social History Tobacco Use Types Packs/Day Years Used Date Never Smoker Smokeless Tobacco: Never Used Alcohol Use Standard Drinks/Week Comments No 0 (1 standard drink = 0.6 oz pure alcoho l) yearly Alcohol Habits Answer Date Recorded How often do you have a drink containing alcohol? Not asked How many drinks containing alcohol do you have on a typical Not asked day when you are drinking? How often do you have six or more drinks on one occasion? 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 Imbalance 2. Myopathy Medicare Cert Period: 08/25/2014 - 10/07/2014 G-Code: Mobility Status Modifier CURRENT CK - At least 40 percent but less than 60 percent impaired, limited or restricted PROJECTED CJ - At least 20 percent but less than 40 percent impaired, limited or restricted DISCHARGE Not Discharged Yet - Ongoing G Code Rationale: This G-Code and these disability modifiers were selected as the primary therapy goal based upon the patient's evaluation including the following functional test(s) 5 Times Sit to Stand. Current ability measures, co- morbidities and clinical judgement were also used to select the disability modifier. Mr. Acevedo's current G-Code functional level is 50% impaired based upon weakness, observed gait impairment, level of assist to enter/exit home. Medicare Therapy G-Code Date Tracking: (Update G-Code status every 10 visits or when code changes) 1 2 3 4 5 6 7 8 9 10 08/25/14 Functional Limitations: Patient reports difficulty with stairs, ambulation, endurance Previous Level of Function: Independent, several years ago HISTORY: Bucky Acevedo is a 54 y.o. male referred to physical therapy for weakness and recent fall at MD visit. Pt had loss of balance in MD office today resulting in being lowered to floor. Took several staff to assist him in getting onto stretcher. Pt has had progressive weakness over several years resulting in difficulty with ambulation and stair negotiation, as well as transfers if no UE support. Has been seen by neurologist in [place] and here at [facility]. Was admitted recently to initiate treatment with Rituxan. Pt previously managed with steriods and IVIG, however, some hypercoagulation noted.Pt monitored for first dose of Rituxan and then d/c'd home, now returns weekly for 3 additional Rituxan infusions. Social/work history: On disability, lives in [place], [place]. Home with ~14 steps to main level. Difficulty with stairs, has to help pt lift B LEs onto step. Medical/Surgical History: refer to medical record Medications: refer to medical record Pain: Pt has history of LBP, not fully evaluated today OBJECTIVE FINDINGS: BP: 147/60 HR: 60 Active Range of Motion: Upper Quarter: Right: Limited secondary to weakness, WNL for PROM Left: Limited secondary to weakness, WNL for PROM Cervical: Not formally tested, no deficits noted with functional mobility Lower Quarter: Right: Limited secondary to weakness, WNL for PROM Left: Limited secondary to weakness, WNL for PROM Lumbar: Not formally tested, no deficits noted with functional mobility Strength Screen: Upper Quarter: Right: 3-/5 shoulder flexion, 3+/5 elbow flexion, 4/5 elbow extension, 5/5 wrist extension Left: 3-/5 shoulder flexion, 3+/5 elbow flexion, 5/5 elbow extension, 5/5 wrist extension Cervical: Not formally tested, no deficits noted with functional mobility Lower Quarter: Right: <3-/5 hip flexion, 5/5 knee extension, 4/5 knee flexion, 5/5 DF Left: <3-/5 hip flexion, 5/5 knee extension, 5/5 knee flexion, 5/5 DF Lumbar: Not formally tested, no deficits noted with functional mobility Five Times Sit to Stand: 48.09 seconds (Greta, et al., 2008) The optimal cutoff time for performing test in predicting recurrent fallers was 15 seconds (sensitivity 55%, specificity 65%). Cutoff time for Parkinson's Disease: >16 sec indicates fall risk (Grey, 2011) Cutoff time for Stroke: 12 sec (Fritz 2010) Cutoff time for Balance/Vestibular: 10 sec for <60 yrs old, 14.2 sec for >60 yrs old (Toshia,2005) [place] analysis results demonstrated that individuals with times for 5 repetitions of this test exceeding the following can be considered to have worse than average performance (Enid, 2006) 60?69 y/o 11.4 sec 70?79 y/o 12.6 sec 80?89 y/o 14.8 sec Elderly, MDC=4.2 sec (Cheryl, 2005) Stroke, MDC=3.6 sec (Fritz, 2010) Vestibular, MCID=2.3 sec (Bj, 2006) Sensory Testing: Upper Quarter: light touch, no numbness or tingling reported at time of eval, pt reports occasional numbness in fingers, mostly at night in supine position Right: Grossly intact Left: Grossly intact Lower Quarter: light touch, no numbness or tingling reported Right: Grossly intact, likely diminished or absent distally - will evaluate at future visit Left: Grossly intact, likely diminished or absent distally - will evaluate at future visit Motor Control: Coordination: Pt able to move all limbs in isolation. No coordination deficit/difficulty noted with functional mobility. Balance: Sitting: Independent Standing: Independent with B UE support of RW Functional Mobility: Transfers: Close supervision for familiar transfers from bed to chair and sit to stand. Likely pt requires contact guard for novel transfers from low surfaces and in unfamiliar environments. Gait: Slow azeb with decreased step length and foot clearance due to weak hip flexors Stairs: Not evaluated Outcome measures: Not evaluated at this time in order to prioritize functional mobility and transferinto w/c for next appointment at infusion lab CLINICAL EVALUATION AND DIAGNOSIS: These findings are consistent with decreased functional mobility secondary to impaired strength, balance, gait, and deconditioning associated with peripheral neuropathy and immune-mediated myopathy. Ptmost affected by decreased LE strength, altered gait and decreased balance limiting his safety with n egotiating stairs, ambulation and transfers in the home and community settings. Bucky Acevedo tests at a (+) risk to fall on the 5 times sit to stand test. Skilled physical therapy is indicated to: increase strength, improve balance, improve gait and increase endurance. Specifically, the patient will benefit from a comprehensive home exercise program that enables safe practice of balance and functional exercises to aid in recovery of functional mobility. FUNCTIONAL GOALS: Therapy Short Term Goals - NA as pt only to be seen for ~4 visits Therapy Production Grip Goals - 6 weeks, 10/07/14 1. (I) home exercise program 2. Pt demonstrates improved modified independence with functional mobility of transfers, ambulation,standing balance to reduce risk of fall and reduce caregiver burden. 3. Five times sit to stand test in less than 30 seconds to improve ability to come to stand from lowsurfaces, ascend/descend stairs, and ambulate during ADLs 4. Patient will be successfully transferred to care of a PT closer to home or be engaged in community based or regular home based strengthening and balance exercise program. INITIAL TREATMENT INCLUDED: initial evaluation and patient education PLAN: Frequency and duration: 1/week x 4-6 weeks tapering as appropriate. Pt will be seen when here at [facility] for Rituxan infusions. Treatment: Therapeutic exercise, Patient/Family education, Home Exercise Program and Balance and Gait Training Informed Consent: The patient consented to the physical therapy evaluation. The patient agrees to and understands the physical therapy treatment plan and goals. Total treatment time: 50 minutes Total Timed Coded Treatment: 0 minutes Mingo Taylor, PT, DPT, NCS [facility] Outpatient Rehabilitation Department documented in this encounter Plan of Treatment Upcoming Encounters Date Type Specialty Care Team Description 06/19/2022 Office Visit Rheumatology Richi Blackmon MD [facility] MEDICAL [facility] DR RHEUMATOLOGY [place], [place] [address] (Wo rk) Scheduled Procedures Name Priority Associated Diagnoses Date/Time EGD, UPPER GI ENDOSCOPY Family hx of colon cance r COLONOSCOPY, DIAGNOSTIC Family hx of colon cance r documented as of this encounter Visit Diagnoses Diagnosis Imbalance Abnormality of gait Myopathy Myopathy, unspecified documented in this encounter Care Teams Vtc Technician Relationship Specialty Start Date End Date Jazmine Baer MD PCP - General 11/07/10 [address] [place] [address] documented as of this encounter
--- OUTSIDE RECORDS SUMMARY | 2022-04-11 10:54 | XMS_ITS | Encounter Summary ---
:1960 Author Organization [facility] [place] [address] Care Team Providers Name Role Phone Jazmine Baer MD Primary Care Provider Reason for Visit Reason Comments Referral Encounter Details Date Type Department Care Team Description 09/09/2014 Office Visit Rheumatology at [facility] Akash Prieto MD [facility] [place] [address] RHEUMATOLOGY DEPT. [phone] [place] [id number] (Wo rk) Social History Tobacco Use Types [...] Reading Time Taken Comments Blood Pressure 122/63 09/09/2014 10:40 AM EDT Pulse 63 09/09/2014 10:40 AM EDT Temperature 36.8 ??C (98.2 ??F) 09/09/2014 10:40 AM EDT Respiratory Rate - - Oxygen Saturation 100% 09/09/2014 10:40 AM EDT Inhaled Oxygen Concentration - - Weight 104.3 kg (230 lb) 09/09/2014 10:40 AM EDT Height 172.7 cm (5' 8) 09/09/2014 10:40 AM EDT Body Mass Index 34.97 09/09/2014 10:40 AM EDT documented in this encounter Progress Notes Akash Prieto MD - 09/09/2014 11:32 AM EDT This is a new patient consultation seen at the request of Jazmine Baer. 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 His course has been progressive in spite of some improvement with various immunosuppressive drugs. In 2009, he went to [place] to see , but actually saw Dr. Marie. At that time, his CK levels were in the 10,000 to 11,000. He was started on IVIG from which he initially got excellent response to, but subsequently the response has been largely muted and most recently he has stopped it altogether. He has also received prednisone, methotrexate, CellCept, and physical therapy. Most recently, he was placed on rituximab and he has had two infusions and is set up for a total of four at 375 mg per meter squared with the last one being September 15, at which time he will see Dr. Mcclellan and Dr. Gleason. So far he has noted no improvement in the myopathy from the two infusions of rituximab that he has had and his most recent CK, I believe was before the first infusion, was 4329. He is limited to cane and wheelchair for long distances. His weakness is primarily proximal, but he does not have shortness of breath or aspiration. HIS ALLERGIES ARE METHOTREXATE WITH HIVES AND RASH, STATINS BECAUSE OF THE MYOPATHY, AND MORPHINE WITH ITCHING. His current medications are atenolol 50, Lovenox around the time of IVIG infusions because of a blood clot, ferrous sulfate, indomethacin rarely, insulin, lisinopril, hydrochlorothiazide, omeprazole, ondansetron when needed, and tramadol in addition to the Rituxan infusions. His problem list includes type 2 diabetes, HORTON with splenomegaly, and skin rash. He also has psoriasis, hypertension, and anemia. His review of systems is largely fatigue and weakness, 15-pound weight loss, hypertension, gastritis, headaches, and difficulty sleeping. FAMILY HISTORY: His father at age 61 of a heart attack, his mother at age 60 of cancer and diabetes. He has one sibling who is , four children that are alive and well. The only articular problem in his family is his father with gout. Past surgical history includes hernia, kidney stones, and the port. 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 He does not smoke or drink. PHYSICAL EXAMINATION: He is awake and alert in wheelchair, not complaining. His blood pressure was 122/63, his pulse is 63, his pulse ox is 100, his height is 68 inches, his weight is 230 pounds, his BMI is 35. He has got mild acne. No other rash. His chest is clear. Heart exam is unremarkable. His extremities, he has no active synovitis or rash. He is weak proximally, both upper and lower. Distal strength is preserved. His all round logger strength is 17 kg. Capillaroscopy was negative. There is very little written about the treatment of statin-induced myopathy, but there are case reports of rituximab, and it is simply too early to say whether it is going to be helpful. He is going to see his neurologist on September 15, at the time of his last infusion and I will see him again on October 15, and I will check a CK on that date as well. documented in this encounter Plan of Treatment Upcoming Encounters Date Type Specialty Care Team Description 06/19/2022 Office Visit Rheumatology Richi Blackmon MD [facility] DR RHEUMATOLOGY [place], [place] [address] ( rk) Scheduled Procedures Name Priority Associated Diagnoses Date/Time EGD, UPPER GI ENDOSCOPY Family hx of colon cance r COLONOSCOPY, DIAGNOSTIC Family hx of colon cance r documented as of this encounter Visit Diagnoses Diagnosis Myopathy Myopathy, unspecified documented in this encounter Care Teams Utilization Specialist Relationship Specialty Start Date End Date Jazmine Baer MD PCP - General 11/07/10 [address] [place] [address] documented as of this encounter
--- OUTSIDE RECORDS SUMMARY | 2022-04-11 10:54 | XMS_ITS | Encounter Summary ---
:1960 Author Organization [facility] [place] [address] Care Team Providers Name Role Phone Jazmine Baer MD Primary Care Provider Encounter Details Date Type Department Care Team Description 09/15/2014 Follow-Up Physical Therapy at [facility] Mingo Taylor, PT [facility] D [facility] [place] [address] PHYSICAL MEDICINE & [phone] [place] [address] Social History Tobacco Use Types Packs/Day Years Used Date Never Smoker Smokeless Tobacco: Never Used Alcohol Use Standard Drinks/Week Comments No 0 (1 standard drink = 0.6 oz pure alcoho l) Sex Assigned at Date Recorded Not on file documented as of this encounter Progress Notes Mingo Taylor, PT - 09/15/2014 9:20 AM EDT Physical Therapy Progress Note Total Timed Code Treatment: 45 minutes Total Treatment Time: 45 minutes Follow up visit for a patient with 1. Alivia Medicare Cert Period: 08/25/2014 - 10/07/2014 G-Code: Mobility Status Modifier CURRENT CK - At least 40 percent but less than 60 percent impaired, limited or restricted PROJECTED CJ - At least 20 percent but less than 40 percent impaired, limited or restricted DISCHARGE CK - At least 40 percent but less than 60 percent impaired, limited or restricted G Code Rationale: This G-Code and these [...] 5 6 7 8 9 10 08/25/14 09/01/14 09/09/14 09/15/14 S: Patient reports doing ok. No significant change in strength. Having some difficulty with sit to stand. Hasn't been going out at all except for medical appointments. Back pain at end of appt ~09/17 (improved since first arriving) O: Therex: Strength/Endurance/ROM (31057) 45 min 1. Chair dips, x 10 2. Nu-step, Level 1, 4 min with assist to maintain neutral position with B LEs (pt in excessive ER) 3. Nu-step, Level 1, 2 min with emphasis on use of B UEs 4. Crouched gait walking, 6x40 feet with verbal cues to maintain knee flexion, more difficult with LLE (ADDED TO HEP) 5. Standing hip abduction, Bx10, 2 reps with cues to bring LE back on a diagonal (pt indicates he feels it in distal quad - note contraction of glutes, though) 6. Seated twist, Bx30 sec with cues to hold 30 sec, improved back pain 7. Seated forward back stretch x 30 sec (pt indicates he feels stretch in low back) A: No significant change in pt's strength noted today. Continues to have difficulty with sit to stand transfer and difficulty negotiating stairs limiting his ability to safely leave/return home. As such, pt is mostly homebound, he does go out for medical appointments and when ground is not so muddy will be able to enter/exit the home better. Lift chair has not yet been delivered but he is hoping it will arrive soon. Today is last infusion here at [facility] as such, pt's care will be transferred to local PT. Will provide local PT with notes and discuss the pt's care as able. Feel pt will continue to benefit FUNCTIONAL GOALS: Therapy Short Term Goals - NA as pt only to be seen for ~4 visits Therapy Cattle Feeder Goals - 6 weeks, 10/07/14 1. (I) [...] home based strengthening and balance exercise program. Home Exercises: 1. Sit to stand x 5 from 22 with B UE support 2. Seated twist, Bx30 sec 3. Sit backs x 10 4. Chair dips - modified, x10 5. Standing hip abduction, Bx10 6. Crouched gait, 100 feet, 2x/day P: Discontinue PT here at [facility], to be continued at [facility] in [place], [place] Mingo Taylor PT [facility] Outpatient Rehabilitation Department documented in this encounter Plan of Treatment Upcoming Encounters Date Type Specialty Care Team Description 06/19/2022 Office Visit Rheumatology Richi Blackmon MD [facility] ER DR RHEUMATOLOGY [place], [place] [address] (Wo rk) Scheduled Procedures Name Priority Associated Diagnoses Date/Time EGD, UPPER GI ENDOSCOPY Family hx of colon cance r COLONOSCOPY, DIAGNOSTIC Family hx of colon cance r documented as of this encounter Visit Diagnoses Diagnosis Imbalance Abnormality of gait documented in this encounter Care Teams Change Manager Relationship Specialty Start Date End Date Jazmine Baer MD PCP - General 11/07/10 [address] [place] [address] documented as of this encounter
--- OUTSIDE RECORDS SUMMARY | 2022-04-11 10:54 | XMS_ITS | Encounter Summary ---
:1960 Author Organization [facility] [place] [address] Care Team Providers Name Role Phone Jazmine Baer MD Primary Care Provider Encounter Details Date Type Department Care Team Description 05/30/2015 Orders Only Gastroenterology at [facility] Bethanie Gorman, Abnormal MRI of [facility] H[place] [address] [facility] [phone] [place] [address] Social History Tobacco Use Types Packs/Day Years Used Date Never Smoker Smokeless Tobacco: Never Used Alcohol Use Standard Drinks/Week Comments No 0 (1 standard drink = 0.6 oz pure alcoho l) Sex Assigned at Date Recorded Not on file documented as of this encounter Plan of Treatment Upcoming Encounters Date Type Specialty Care Team Description 06/19/2022 Office Visit Rheumatology Richi Blackmon MD [facility] DR RHEUMATOLOGY [place], [place] [address] (Wo rk) Scheduled Procedures Name Priority Associated Diagnoses Date/Time EGD, UPPER GI ENDOSCOPY Family hx of colon cance r COLONOSCOPY, DIAGNOSTIC Family hx of colon cance r documented as of this encounter Results Creatinine (05/30/2015 4:17 PM EST) athologist Signature Creatinine 1.12 0.80 - 1.50 CERNER mg/dL [facility] Comment: Please note that the pediatric reference intervals supplied above were not validated at [facility]. Results from pediatri c patients should be interpreted in conjunction to the patient's age, height and muscle mass. Estimated GFR >60 >=60 COLLIN Montejo Comment: This estimated GFR (eGFR) value was [...] the following links into your internet browser. [email or web address]/[facility]f Specimen Anatomical Collection Method Collection Time Receive d Time (Source) Location / / Volume Laterality Blood specimen 05/30/2015 4:17 PM 015 4:30 (specimen) EST PM EST Resulting Agency Comment Spec In Lab Brian Brunson MD CHEMISTRY ORDERABLES Performing Organization Address City/State/[place] [address] COLLIN WALTER documented in this encounter Visit Diagnoses Diagnosis Abnormal MRI of abdomen Nonspecific (abnormal) findings on radio logical and other examination of abdominal area, including retroperitoneum documented in this encounter Care Teams Refrigerated Company Driver Relationship Specialty Start Date End Date Jazmine Baer MD PCP - General 11/07/10 [address] [place] [address] documented as of this encounter
--- OUTSIDE RECORDS SUMMARY | 2022-04-11 10:54 | XMS_ITS | Encounter Summary ---
:1960 Author Organization [facility] [address] Care Team Providers Name Role Phone Jazmine Baer MD Primary Care Provider Encounter Details Date Type Department Care Team Description 09/01/2014 Follow-Up Physical Therapy at [facility] Mingo Taylor, PT Imbalance; [facility] [place] [address] PHYSICAL MEDICINE & [phone] [place] [address] Social History Tobacco Use Types Packs/Day Years [...] encounter Progress Notes Mingo Taylor, PT - 09/01/2014 9:42 AM EDT Physical Therapy Progress Note Total Timed Code Treatment: 45 minutes Total Treatment Time: 45 minutes Follow up visit for a patient with 1. Imbalance 2. Myopathy Medicare Cert Period: [...] used to select the disability modifier. Mr. Alexanders current G-Code functional level is 50% impaired based upon weakness, observed gait impairment, level of assist to enter/exit home. Medicare Therapy G-Code Date Tracking: (Update G-Code status every 10 visits or when code changes) 1 2 3 4 5 6 7 8 9 10 08/25/14 09/01/14 S: Patient reports having 3rd injection of Rituxan. Some days are better than others. Constant pain in the lower back since 2008, fluctuates based on activity level. Some difficulty getting in and out of bed but only occasionally. O: Therapeutic / Functional Activities (38757) 30 min Therex: Strength/Endurance/ROM (59640) 15 min 1. Amb 6x40 feet, 2x with rollator, 4x with 2-wheeled RW, cues to decrease L hyperextension, 1 rep with crouched gait walking 2. 5x Sit to Stand: 35 sec from 21 with B UE support on chair and RW, more difficult with increasing reps (ADDED TO HEP) 3. Bed mobility: 1. Rolling: pt able to roll to R, unable to roll L. Attempted to bend knee to assist with rolling, but pt needs assist secondary to hip weakness. 2. Supine to sit: Pt hooks L UE under L LE and rocks up to sitting utilizing R UE as able. Unable touse limited shoulder strength to sit from sideyling. 4. Seated twist, Bx30 sec, 3 reps with cues to proper technique (ADDED TO HEP) A: Pt continues to have difficulty with functional mobility. Spent some time with family training toassist with sit to stand transfer without pulling on pt's UEs, particularly b/c shoulder weakness leads to some baseline instability in B shoulder joints. Some home exercises provided, pt continues to indicate that getting into home is difficult and is more house-bound than he would like to be. Pt would benefit from a lift chair for use in the home as now he can only transfer from a desk chair (on wheels) or his bed. He can not sit on any dining room chairs or living room chairs or couches. He even needed assist to stand from the chairs in our waiting room. Medicare will cover a portion of the costof a lift chair with attending physician documentation of severe neuromuscular disease and pt's inability to stand from standard chairs and the chairs in his home. Will assist pt in getting this prescription from Dr. Zamora. FUNCTIONAL GOALS: Therapy Short Term Goals - NA as pt only to be seen for ~4 visits Therapy Fdc Goals - 6 weeks, 10/07/14 1. (I) [...] UE support 2. Seated twist, Bx30 sec P: Continue PT for Therapeutic exercise, Patient/Family education, Home Exercise Program and Balanceand Gait Training, follow-up on RW, trial AFO on L LE for improved knee control Mingo Taylor, NIYAH [facility] Outpatient Rehabilitation Department documented in this encounter Plan of Treatment Upcoming Encounters Date Type Specialty Care Team Description 06/19/2022 Office Visit Rheumatology Richi Blackmon MD [facility] DR RHEUMATOLOGY [place], [place] [address] (Wo rk) Scheduled Procedures Name Priority Associated Diagnoses Date/Time EGD, UPPER GI ENDOSCOPY Family hx of colon cance r COLONOSCOPY, DIAGNOSTIC Family hx of colon cance r documented as of this encounter Visit Diagnoses Diagnosis Imbalance Abnormality of gait Myopathy Myopathy, unspecified documented in this encounter Care Teams Aged Or Disabled Carer Relationship Specialty Start Date End Date Jazmine Baer MD PCP - General 11/07/10 [address] [place] [address] documented as of this encounter
--- OUTSIDE RECORDS SUMMARY | 2022-04-11 10:54 | XMS_ITS | Encounter Summary ---
:1960 Author Organization [facility] [address] Care Team Providers Name Role Phone Jazmine Baer MD Primary Care Provider Reason for Visit Reason Comments Follow-up Encounter Details Date Type Department Care Team Description 06/24/2015 Office Visit Rheumatology at [facility] Akash Prieto MD [facility] [place] [address] RHEUMATOLOGY DEPT. [phone] [place] [id number] (Wo rk) Social History Tobacco Use Types Packs/Day Years Used Date Never Smoker Smokeless Tobacco: Never Used Alcohol Use Standard Drinks/Week Comments No 0 (1 standard drink = 0.6 oz pure alcoho l) Sex Assigned at Date Recorded Not on file documented as of this encounter Last Filed Vital Signs Vital Sign Reading Time Taken Comments Blood Pressure 173/66 06/24/2015 1:14 PM EST Pulse 56 06/24/2015 1:14 PM EST Temperature 36.4 ??C (97.5 ??F) 06/24/2015 1:14 PM EST Respiratory Rate - - Oxygen Saturation 100% 06/24/2015 1:14 PM EST Inhaled Oxygen Concentration - - Weight 123.8 kg (273 lb) 06/24/2015 1:14 PM EST Height 175.3 cm (5' 9) 06/24/2015 1:14 PM EST Body Mass Index 40.32 06/24/2015 1:14 PM EST documented in this encounter Progress Notes Akash Prieto MD - 06/24/2015 2:00 PM EST The patient is a 55-year-old male with statin-induced myopathy from 2008, 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 His initial CK's were in 10,000 to 11,000 range and he has gotten partial response from IVIG most recently. He has gotten several months of 1 g per kg twice in two successive days each month, and his CK's have gone down as low as 191, but recently he has had a progressive, but modest increase in his CK's on a monthly basis from 191 to 254, 349, 446 and 518. Based on this, he was referred back. During this time, he has actually increased his strength and is more functional. He still cannot do stairs, but is able to ambulate without a walker in the house. On exam, he is healthy appearing, obese. His blood pressure is 173/69, pulse of 56, pulse ox of 100, temp of 97.5, height is 69 inches, weight is 273 which is up almost 50 pounds. His neurologic exam was notable for a pie filling mixer strength of 30 kg on the right and 27 on the left. His proximal upper extremity strength is 5, his proximal lower extremity strength is 1. These are better I increased his IVIG appropriately to his weight of 123 kg, so 123 g of IVIG for two successive days monthly. We discussed tacrolimus. He does not want to do it now. Lastly, I ordered that a port be placed in because he is having a really hard time with access. documented in this encounter Plan of Treatment Upcoming Encounters Date Type Specialty Care Team Description 06/19/2022 Office Visit Rheumatology Richi Blackmon MD [facility] RHEUMATOLOGY [place], [place] [address] (Wo rk) Scheduled Procedures Name Priority Associated Diagnoses Date/Time EGD, UPPER GI ENDOSCOPY Family hx of colon cance r COLONOSCOPY, DIAGNOSTIC Family hx of colon cance r documented as of this encounter Visit Diagnoses Diagnosis Myopathy Myopathy, unspecified documented in this encounter Care Teams Domestic Maid Relationship Specialty Start Date End Date Jazmine Baer MD PCP - General 11/07/10 [address] [place] [address] documented as of this encounter
--- OUTSIDE RECORDS SUMMARY | 2022-04-11 10:54 | XMS_ITS | Encounter Summary ---
:1960 Author Organization [facility] [place] [address] Care Team Providers Name Role Phone Jazmine Baer MD Primary Care Provider Reason for Visit Reason Comments Follow-up Encounter Details Date Type Department Care Team Description 12/03/2014 Follow-Up Rheumatology at [facility] Akash Prieto MD [facility] [place] [address] RHEUMATOLOGY DEPT. [phone] [place] [id number] (Wo rk) Social History Tobacco Use Types Packs/Day Years Used Date Never Smoker Smokeless Tobacco: Never Used Alcohol Use Standard Drinks/Week Comments No 0 (1 standard drink = 0.6 oz pure alcoho l) Sex Assigned at Date Recorded Not on file documented as of this encounter Last Filed Vital Signs Vital Sign Reading Time Taken Comments Blood Pressure 131/54 12/03/2014 10:27 AM EDT Pulse 62 12/03/2014 10:27 AM EDT Temperature 36.5 ??C (97.7 ??F) 12/03/2014 10:27 AM EDT Respiratory Rate - - Oxygen Saturation 100% 12/03/2014 10:27 AM EDT Inhaled Oxygen Concentration - - Weight 109.8 kg (242 lb) 12/03/2014 10:27 AM EDT Height 174 cm (5' 8.5) 12/03/2014 10:27 AM EDT Body Mass Index 36.26 12/03/2014 10:27 AM EDT documented in this encounter Progress Notes Akash Prieto MD - 12/03/2014 11:25 AM EDT This is a followup on Bucky Acevedo. date is 1960. The patient is a 54-year-old male with a statin-induced myopathy dating from 2008, which has been characterized as SRMP6 with antibodies to HMG CoA reductase. His course has been progressive in spite of some improvement with various immunosuppressive drugs. His original CKs were 10,000 to 11,000 and he got a partial response from IVIG. He has received prednisone, methotrexate, CellCept, and physical therapy and most recently had two infusions of rituximab with no clear-cut improvement. I saw him in September and reinstated the IVIG and he got the calculated dose divided in two on two successive days; however, when I finally got the original orders from [facility], it appears as though he was getting double dose that is 1 g per kilogram each day for two days in a pair every month instead of 1 g per kilogram divided into two days and since then he has had some progressive decline and now when he falls he cannot get up and now it takes two people to get him up. He is having some difficulty swallowing and where as he used to able to do transfers with using a cane to push himself up, he now is unable to do that. In fact, he has been discharged from physical therapy because they are so afraid that he would not be able to get up when he falls and he might injure himself. His current medications are insulin, omeprazole 40, indomethacin 25 twice daily, Zofran 4 mg p.r.n., lisinopril/hydrochlorothiazide 20/12.5 two tablets daily, and atenolol 150 mg a day. On exam, he is wheelchair bound with central obesity, some acne. His blood pressure is 131/54. His pulse is 62. His pulse ox is 100. His temperature is 97.7. His height is 69 inches and weight is 242, which is up about 12 pounds. His chest has bibasilar rales and his heart exam has soft heart sounds, but they appear to be normal. His strength exam, he has 4- in the upper extremities and 0 in the lower extremities proximally. Laboratory data includes a CK of 4329 on 08/25, 3809 on 09/15, and 3778 on 11/15 indicating a poor response to rituximab. Today, his CK is pending. I have decided to try pulse Solu-Medrol along with the IVIG for three months. After that if we have not made any progress, I will add cyclophosphamide, and if we still have not made progress, I will consider plasmapheresis. In the interim, I will speak with Dr. Freedman in [place] who apparently has a large experience with this. I will follow up in one month. documented in this encounter Plan of Treatment Upcoming Encounters Date Type Specialty Care Team Description 06/19/2022 Office Visit Rheumatology Richi Blackmon MD [facility] DR RHEUMATOLOGY [place], [place] [address] (Wo rk) Scheduled Procedures Name Priority Associated Diagnoses Date/Time EGD, UPPER GI ENDOSCOPY Family hx of colon cance r COLONOSCOPY, DIAGNOSTIC Family hx of colon cance r documented as of this encounter Procedures Procedure Name Priority Date/Time Associated Comments Diagnosis ORDS - PROVIDER CARE 04/04/2015 12:00 SCAN AM EDT HEMOGRAM Routine 12/03/2014 11:31 Myopathy Results for this AM EDT procedure are i n the results section. DIFFERENTIAL, Routine 12/03/2014 11:31 Myopathy Results fo r this AUTOMATED AM EDT procedure are i n the results section. SEDIMENTATION RATE Routine 12/03/2014 11:31 Myopathy Resul ts for this AM EDT procedure are i n the results section. CBC (WITH DIFF) Routine 12/03/2014 11:31 Myopathy AM EDT CRP, CARDIAC RISK (HS Routine 12/03/2014 11:31 Myopathy Re sults for this CRP) AM EDT procedure are i n the results section. CK Routine 12/03/2014 11:31 Myopathy Results for this AM EDT procedure are i n the results section. COMPREHENSIVE Routine 12/03/2014 11:31 Myopathy Results fo r this METABOLIC PANEL AM EDT procedure ar e in (NON-FASTING) the results section. documented in this encounter Results SCAN DOC: ORDS - PROVIDER CARE (04/04/2015 12:00 AM EDT) Narrative This result has an attachment that is no t available. Scanning Provider MEDIA MGR SCAN EXT ORDR/RSLT (ABNORMAL) Differential, Automated (12/03/2014 11:31 AM EDT) [facility] Time Signature Neutrophils % 66.5 % CERNER MILLENNIUM Neutr Abs (ANC) 3.82 1.50 - CERNER 6.30 MILLENNIUM x10(3)/mcL Lymphocytes % 16.4 % CERNER MILLENNIUM Lymphocytes Abs 0.9 (L) 1.0 - 3.6 CERNER x10(3)/mcL MILLENNIUM Monocytes % 9.4 % CERNER MILLENNIUM Monocyte Abs 0.5 0.2 - 1.0 CERNER x10(3)/mcL MILLENNIUM Eosinophils % 7.0 % CERNER MILLENNIUM Eosinophils Abs 0.4 0.0 - 0.5 CERNER x10(3)/mcL MILLENNIUM Basophils % 0.5 % CERNER MILLENNIUM Basophils Abs 0.0 0.0 - 0.2 CERNER x10(3)/mcL MILLENNIUM Immature Gran % 0.20 % CERNER MILLENNIUM Comment: Immature granulocytes(IG's)percentage an d absolute count will include metamyelocytes, myelocytes, and promyelo cytes. Blood smears from CBCs yielding IG's will be scanned manually for monserrat dangina. If this scan disagrees with the automated IG or if promyelocytes are not ed, a manual differential will be performed. Tamara Gran Abs 0.01 0.00 - 0.05 x10(3)/mcL CER NER MILLENNIUM Specimen Anatomical Collection Method Collection Time Receive d Time (Source) Location / / Volume Laterality Blood specimen 12/03/2014 11:31 5 (specimen) AM EDT 11:41 AM EDT Resulting Agency Comment Spec In Lab Akash Prieto MD HEMATOLOGY ORDERABLES Performing Organization Address City/State/[place] [address] CERNER MILLENNIUM (ABNORMAL) Hemogram (12/03/2014 11:31 AM EDT) P athologist Signature WBC 5.7 4.0 - 10.0 CERNER x10(3)/mcL MILLENNIUM RBC 4.17 (L) 4.63 - CERNER 6.08 MILLENNIUM x10(6)/mcL Hemoglobin 12.0 (L) 13.7 - CERNER 17.5 gm/dL MILLENNIUM Hematocrit 37.3 (L) 40.0 - CERNER 51.0 % MILLENNIUM MCV 89.4 79.0 - CERNER 92.0 fL MILLENNIUM MCH 28.8 25.6 - CERNER 32.2 pg MILLENNIUM MCHC 32.2 32.0 - CERNER 36.5 gm/dL MILLENNIUM Platelets 152 145 - 370 CERNER x10(3)/mcL MILLENNIUM RDWSD 47.4 (H) 35.0 - CERNER 46.0 fL MILLENNIUM RDWCV 14.7 (H) 10.9 - CERNER 14.4 % MILLENNIUM MPV 11.3 9.0 - 12.0 CERNER fL MILLENNIUM Specimen Anatomical Collection Method Collection Time Receive d Time (Source) Location / / Volume Laterality Blood specimen 12/03/2014 11:31 5 (specimen) AM EDT 11:41 AM EDT Resulting Agency Comment Spec In Lab Akash Prieto MD HEMATOLOGY ORDERABLES Performing Organization Address City/State/ZIP Code Phon e Number [address] [facility] MILLENNIUM (ABNORMAL) CK (12/03/2014 11:31 AM EDT) P athologist Signature CK, Total 3,019 (H) 0 - 200 CERNER unit/L [facility] Specimen Anatomical Collection Method Collection Time Receive d Time (Source) Location / / Volume Laterality Blood specimen 12/03/2014 11:31 5 (specimen) AM EDT 11:41 AM EDT Resulting Agency Comment Spec In Lab Akash Prieto MD CHEMISTRY ORDERABLES Performing Organization Address City/State/ZIP Code Phon e Number [address] [facility] High Sensitivity CRP (12/03/2014 11:31 AM EDT) athologist Signature CRP High Sens 6.5 mg/L [facility] Comment: Interpretations: 1) For accurate cardiac risk assessment, the average of 2 values >2 weeks apart should be obtained (ref 1&2). A value >1 0 mg/L indicates an inflammatory condition, concentrations >10 mg/L shoul d not be used for cardiac risk assessment. ?<1.0 mg/L: low risk ?1.0 - 3.0 mg/L: moderate risk ?>3.0 mg/L: high risk groups for fu ture cardiovascular events 2) The general reference range of appare ntly healthy individuals using this test is <5.0 mg/L (derived from the test package insert) References: 1. Paige RECINOS et. al. ??AHA/CDC Scientif ic Statement: Markers of Inflammation and Cardiovascular Disease. ??Circulatio n 2003; 107:499-511 2. Benitez PM. ??Clinical applications of C-reactive protein for cardiovascular disease detection and prevention. ??Circ ulation 2003; 107:363-369 Specimen Anatomical Collection Method Collection Time Receive d Time (Source) Location / / Volume Laterality Blood specimen 12/03/2014 11:31 5 (specimen) AM EDT 11:41 AM EDT Resulting Agency Comment Spec In Lab Akash Prieto MD CHEMISTRY ORDERABLES Performing Organization Address City/[facility]/ZIP Code Phon e Number [address] [facility] (ABNORMAL) Sedimentation rate (12/03/2014 11:31 AM EDT) P athologist Signature Sed Rate 86 (H) 0 - 15 CERNER mm/hr [facility] Specimen Anatomical Collection Method Collection Time Receive d Time (Source) Location / / Volume Laterality Blood specimen 12/03/2014 11:31 5 (specimen) AM EDT 11:41 AM EDT Resulting Agency Comment Spec In Lab Akash Prieto MD HEMATOLOGY ORDERABLES Performing Organization Address City/State/ZIP Code Phon e Number [address] [facility] ([facility] Comprehensive metabolic panel (non-fasting) (12/03/2014 11:31 AM EDT) athologist Signature Glucose Lvl 148 65 - 199 CERNER mg/dL MILLENNIUM Comment: Diabetes: >=200 mg/dL plus symp toms BUN 27 (H) 10 - 20 mg/dL CERNER MILLENNIU M Creatinine 0.84 0.80 - 1.50 mg/dL CERNER MILL ENNIUM Comment: Please note that the pediatric reference intervals supplied above were not validated at [facility]. Results from pediatri c patients should be interpreted in conjunction to the patient's age, height and muscle mass. Sodium 140 135 - 145 mmol/L CERNER ELISE NIUM Potassium 4.7 3.5 - 5.0 mmol/L CERNER ELISE NIUM Comment: Please note: ??Patients with WBC >100,00 0 may have falsely elevated Potassium levels. ??For accurate Potassium quantif ication in these patients send serum separator tube (gold top) for subsequent determinations. ??Contact the Clinical Chemistry Laboratory if there are any qu estions. Chloride 103 98 - 107 mmol/L CERNER MILLENN IUM CO2 24 22 - 31 mmol/L CERNER MILLENNI UM Anion Gap 13 5 - 15 mmol/L CERNER MILLENNIU M Calcium 9.6 8.5 - 10.5 mg/dL CERNER ELISE NIUM Total Protein 7.8 6.1 - 8.0 gm/dL CERNER MIL LENNIUM Albumin 3.7 3.2 - 5.2 gm/dL CERNER MILLENN IUM AST 134 (H) 0 - 39 unit/L CERNER MILLENNIU M ALT 200 (H) 0 - 55 unit/L CERNER MILLENNIU M Alk Phos 108 40 - 120 unit/L CERNER MILLENN IUM Total Bilirubin 0.3 0.2 - 1.3 mg/dL CERNER M ILLENNIUM Bili, Direct 0.1 0.0 - 0.3 mg/dL CERNER MILL ENNIUM Estimated GFR >60 >=60 CERNER MILLENNIU M Comment: This estimated GFR (eGFR) value was [...] the following links into your internet browser. [email or web address]://[employer]/DHnkdep [email or web address] Specimen Anatomical Collection Method Collection Time Receive d Time (Source) Location / / Volume Laterality Blood specimen 12/03/2014 11:31 5 (specimen) AM EDT 11:41 AM EDT Resulting Agency Comment Spec In Lab Akash Prieto MD CHEMISTRY ORDERABLES Performing Organization Address City/State/ZIP Code Phon e Number [address] [facility] documented in this encounter Visit Diagnoses Diagnosis Myopathy Myopathy, unspecified documented in this encounter Care Teams Lining Cutter Relationship Specialty Start Date End Date Jazmine Baer MD PCP - General 11/07/10 [address] [place] [address] documented as of this encounter
--- OUTSIDE RECORDS SUMMARY | 2022-04-11 10:54 | XMS_ITS | Encounter Summary ---
:1960 Author Organization [facility] Address [facility] [place] [address] Care Team Providers Name Role Phone Jazmine Baer MD Primary Care Provider Reason for Visit Reason Onset Date Comments Other 08/20/2014 RE: scheduling pt in fusion Encounter Details Date Type Department Care Team Description 08/20/2014 Telephone Neurology at [facility] [place] Ruperto Mcclellan MD Other (RE: scheduling [facility] pt infusion) [place] [address] NEUROLOGY DEPT [phone] [place] [id number] (Wo rk) Social History Tobacco Use Types [...] this encounter Miscellaneous Notes Telephone Encounter - Joaquin Beavers - 08/20/2014 4:47 PM EDT Thao from Oncology called in regards to message left by Dr. Mcclellan for this pt to receive an infusion of rituxan, possibly on 08/25. Thao stated that the Infusion suite would not have enough time on that day, as the infusion takes over 5 hours to complete. She would like a call back to discuss this further. She can be reached at [phone] documented in this encounter Plan of Treatment Upcoming Encounters Date Type Specialty Care Team Description 06/19/2022 Office Visit Rheumatology Richi Blackmon MD [facility] ER DR RHEUMATOLOGY [place], [place] [address] (Wo rk) Scheduled Procedures Name Priority Associated Diagnoses Date/Time EGD, UPPER GI ENDOSCOPY Family hx of colon cance r COLONOSCOPY, DIAGNOSTIC Family hx of colon cance r documented as of this encounter Visit Diagnoses Not on filedocumented in this encounter Care Teams Chef Broiler Or Fry Relationship Specialty Start Date End Date Jazmine Baer MD PCP - General 11/07/10 [address] [place] [address] documented as of this encounter
--- OUTSIDE RECORDS SUMMARY | 2022-04-11 10:54 | XMS_ITS | Encounter Summary ---
:1960 Author Organization [facility] [address] Care Team Providers Name Role Phone Samantha Baer MD Primary Care Provider Encounter Details Date Type Department Care Team Description 08/25/2014 [place] [facility] [place] Zamora MD [facility] [place] [address] [facility] Ruperto Ocampo MD [facility] [place] [address] [place] [address] Social History Tobacco Use Types Packs/Day [...] Sign Reading Time Taken Comments Blood Pressure 125/60 08/25/2014 7:59 AM EDT Pulse 75 08/25/2014 7:59 AM EDT Temperature - - Respiratory Rate - - Oxygen Saturation - - Inhaled Oxygen Concentration - - Weight 104.3 kg (230 lb) 08/25/2014 7:59 AM EDT Height 172.7 cm (5' 8) 08/25/2014 7:59 AM EDT Body Mass Index 34.97 08/25/2014 7:59 AM EDT documented in this encounter Progress Notes Ana Zamora MD - 08/25/2014 11:26 AM EDT Attending Physician Attestation I saw and evaluated the patient with Dr. Mcclellan. I have reviewed the medical records and the patient's history during the visit and I agree with the details as written. My physical examination confirms the findings. Severe proximal > distal symmetric LE>>UE weakness and diffuse arreflexia. Normal sensory exam. VSS. Lungs CTA, RRR, =BSs and soft/NT abdomen. No CCE. Impression: Anti-HMGCR immune mediated myopathy. First Dose Rituxan well tolerated one week ago, andplan to contniue weekly Rituxan 375mg/m2 x 3 additional doses. (Per Gastroenterology notes- HORTON with HAV/HBV: (+)/(-)- received last shot of HBV vaccine) Plan to check CD-19 levels one month after 4th loading dose of Rituxan. Subsequent Rituxan doses planned q 3-6 months depending on clinical and CD-19 response. The assessment and plan were formulated in discussion with me at the time of the visit and I agree with them as documented. Ruperto Mcclellan MD - 08/25/2014 8:32 AM EDT Neurology Clinic Note Patient Name: Bucky Acevedo : 1960 PCP: SAMANTHA BAER MD Clinic Attending: Dr. Zamora Patient ID: Bucky Acevedo is a 54 y.o. man with h/o immune mediated myopathy (detailed below) here for scheduled FU visit. Patient was last seen by me during hospital admission earlier this month. Patient Active Problem List Diagnosis ??? Skin rash ??? 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 Nonalcoholic steatohepatitis (HORTON) ??? Anemia Overview Note: BMBX was negative. Unclear cause. Either anemia of chronic disease or possibly due to renal insufficiency and decreased epo production. ??? Hepatosplenomegaly Overview Note: US abdomen ??? Nausea and vomiting ??? Diabetes mellitus type II ??? Myopathy Overview Note: Statin induced autoimmune myopathy (anti-HMGCR) ?? Used [...] further work [place] for [place]opathy -> [place] [address] ?? Mus[place] B[place] [facility] [place] (Dr. Gleason) c/w necrotizing myopathy (cannot rule out inclusion body myositis) ?? Bx reviewed by Dr. 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 mitochondrial mutations: Absence of [...] ?? Stopped MTX in summer (seen in [place] for this decision) but stopped seeing Dr. [...] IVIG as weakness worse ?? CK 4393 (08/17) ?? Developed diarrhea with cellcept, stopped ?? Rituxan started on 08/18 (4 weekly doses for induction) REFERENCES: Curr Opin Rheumatol. 2010;23(6):612-9. doi: 10.1097/BOR.[id number]. Necrotizing autoimmune myopathy. Sherwin Madden, Navya M. Muscle Nerve. 2009;41(2):185-90. doi: 10.1002/mus.53666. Immune-mediated necrotizing myopathy associated with statins. Lewis P1, Dominik HD, Cynthia SA, Keith J, Julissa J, Davion AA. Interval History: Rituxan was started on 08/18 last week then patient was discharged home. Per CRC note last week, he did not want VNA at home and a walker was recommended but patient opted to use a walker he can borrow from his friend. Cellcept & IVIG were stopped. His feels that he has been doing about the same at home. He feels he's somewhat better and doing okay at home. No falls at home. Had an incident of R knee pain the other day. This morning during vitals check by RN in clinic, patient was unable to keep himself held up during a transfer to the chair (he thinks it's due to the walker being unfamiliar to him and having had to travel here very early this morning). He was supported by staff while he slowly lowered to the floor. It was not a traumatic fall. He was then transferred to a stretcher when male staffs arrived. Tolerated rituxan last week. Denies SOB, denies CP. At home, he can only transfer from a desk chair on wheels or his bed. Cannot sit on any dining room chairs or living room chairs, or couches. Past Medical History Diagnosis Date ??? Diabetes ??? Hypertension ??? Hyperlipidemia ??? Gout ??? Obesity ??? Kidney stone ??? 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 Shingles 2010 ??? DM II (diabetes mellitus, type II), controlled ??? Cirrhosis Medications: Medications 08/25/14 0800 Medication Sig Taking? insulin glargine (LANTUS) Solution Inject 25 Units subcutaneously nightly. Patient taking differently: Inject 75 Units subcutaneously nightly. Yes insulin lispro (HUMALOG) Solution Inject 2-4 Units subcutaneously 3 times daily (with meals). Patient taking differently: Inject 10-12 Units subcutaneously 3 times daily (with meals). Yes enoxaparin (LOVENOX) 40 mg/0.4 mL Syringe Inject 0.4 mLs subcutaneously daily. Administer this one day prior, the days of, and the day after your IVIG infusions. Yes insulin glargine (LANTUS) Solution Inject 25 Units subcutaneously every morning. Yes multivitamin Capsule Take 1 capsule by mouth daily. Yes ferrous sulfate 325 mg (65 mg iron) Tablet Take 1 tablet by mouth 2 times daily. Yes omeprazole (PRILOSEC) 40 mg capsule Take 1 capsule by mouth daily. Yes indomethacin (INDOCIN) 25 mg capsule Take 25 mg by mouth 2 times daily (with meals). As needed Yes ondansetron (ZOFRAN) 4 mg tablet Take 1 tablet by mouth as needed. Yes lisinopril-hydrochlorothiazide (PRINZIDE;ZESTORETIC) 20-12.5 mg per tablet Take 2 tablets by mouth daily. Yes atenolol (TENORMIN) 100 mg tablet Take 50 mg by mouth daily. Yes traMADol (ULTRAM) 50 mg tablet Take 100 mg by mouth 2 times daily. Yes Allergy: Allergies Allergen Reactions ??? Methotrexate Hives, Itching and Rash ??? Morphine Itching ??? Jhqpsny-Uyu-Lwy Reductase Inhibitors Myopathy Review of systems: Constitutional: No fevers or chills Eyes: No vision changes, no diplopia, no blurry vision ENT: No rhinorrhea or pharyngitis, no meningismus CV: No chest pain or palpitations Resp: No cough, no shortness of breath GI: No nausea, vomiting, diarrhea (+) constipation : No dysuria, no incontinence Heme: No bleeding or bruising Endo: No polyuria or cold intolerance Neuro: See HPI Psych: No depression, normal sleep [x] Review of systems otherwise negative Physical Exam: Filed Vitals: 08/25/14 0759 BP: 125/60 Pulse: 75 Height: 172.7 cm (5' 8) Weight: 104.327 kg (230 lb) Gen: NAD Neck: Supple Neuro Exam: MS: AAOx4, clear language, no dysarthria, follows commands CN: PERRL, EOMI, no facial asymmetry Motor: Normal bulk and tone. UE: 5/5 R shoulder abduction, 4+/5 R elbow flexion, 4+/5 L shoulder abduction, 5/5 R 4+/5 L elbow extension LE: 3/5 BL hip flexion, 5/5 BL knee flexion & extension, foot dorsi/plantarflexion Unable to get up from the floor by himself Labs: CK 4394 (08/17) Diagnostic Tests and Imaging: No new imaging studies Assessment / Plan: Bucky Acevedo is a 54 y.o. 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 Weakness seems to be stable since last week, if not slightly better even though he is unable to get back up from the floor without multiple staffs help. As patient cannot sit on anything but desk chair or bed, unable to sig on other chairs or couch at home, and he could not even stand without assistance from the chairs in waiting room at . Patient would benefit from a lift chair to use at home at this time due to his severe weakness from the autoimmune myopathy. -CBC, CMP, CK today -rituxan today (#2), and 2 more weekly doses managed by Dr. Zamora -PT/OT -will arrange for a FU visit with me again, to be coordinated with his infusions Ruperto Mcclellan MD Neurology Resident, PGY4 Pager [phone] documented in this encounter Miscellaneous Notes Addendum Note - Ana Zamora MD - 08/25/2014 11:36 AM EDT Addended by: ANA ZAMORA on: 08/25/2014 11:36 AM Modules accepted: Orders, Level of Service documented in this encounter Plan of Treatment Upcoming Encounters Date Type Specialty Care Team Description 06/19/2022 Office Visit Rheumatology Richi Blackmon MD [facility] ER DR RHEUMATOLOGY [place], [place] [address] (Wo rk) Scheduled Procedures Name Priority Associated Diagnoses Date/Time EGD, UPPER GI ENDOSCOPY Family hx of colon cance r COLONOSCOPY, DIAGNOSTIC Family hx of colon cance r documented as of this encounter Results (ABNORMAL) CD19 (01/14/2015 11:12 AM EDT) athologist Signature CD19% <1 (L) 6 - 23 % CERNER MILLENNIUM CD19 ABS 1 (L) 99 - 473 CERNER /mcl MILLENNIUM Comment: This assay is a dual platform determin ation. ??The PERCENTAGE of lymphocytes bearing the CD19 is determined using bandar w cytometry immunophenotyping. ??The ABSOULTE COUNT of LY75-jgamyxwespt is de termined by multiplying the percentages by the absolute lymphocyte count obtaine d from the concurrent CBC. The displayed reference range is derived by assaying the general reference population, regardless of gender, but ag ed between 16 and 70 years of age. ?? For individuals less than 16, pediatric refe rence ranges are derived from the literature [Journal of Pediatrics 1997 M ar;130(3):388-393]. WBC 5.8 4.0 - 10.0 x10(3)/mcL CERNER M ILLENNIUM Lymphocytes % 21.6 % CERNER MILLENNIU M Lymphocytes Abs 1.3 1.0 - 3.6 x10(3)/mcL CER NER MILLENNIUM Specimen Anatomical Collection Method Collection Time Receive d Time (Source) Location / / Volume Laterality Blood specimen 01/14/2015 11:12 5 (specimen) AM EDT 11:29 AM EDT Resulting Agency Comment Spec In Lab Ana Zamora MD HEMATOLOGY ORDERABLES Performing Organization Address [facility]/ZIP Code Phon e Number [address] CERNER MILLENNIUM (ABNORMAL) CK (08/25/2014 11:45 AM EDT) athologist Signature CK, Total 4,329 (H) 0 - 200 CERNER unit/L MILLENNIUM Comment: result rechecked, blr Specimen Anatomical Collection Method Collection Time Receive d Time (Source) Location / / Volume Laterality Blood specimen 08/25/2014 11:45 5 (specimen) AM EDT 11:54 AM EDT Resulting Agency Comment Spec In Lab Ana Zamora MD CHEMISTRY ORDERABLES Performing Organization Address City/[facility]/ZIP Code Phon e Number [address] CERNER MILLENNIUM (ABNORMAL) Comprehensive metabolic panel (non-fasting) (08/25/2014 11:45 AM EDT) athologist Signature Glucose Lvl 184 60 - 199 CERNER mg/dL MILLENNIUM Comment: Diabetes: >=200 mg/dL plus symp toms BUN 31 (H) 10 - 20 mg/dL CERNER MILLENNIU M Creatinine 0.87 0.80 - 1.50 mg/dL CERNER MILL ENNIUM Comment: Please note that the pediatric reference intervals supplied above were not validated at [facility] [place]. Results from pediatri c patients should be interpreted in conjunction to the patient's age, height and muscle mass. Sodium 139 135 - 145 mmol/L CERNER ELISE NIUM Potassium 5.0 3.5 - 5.0 mmol/L CERNER ELISE NIUM Comment: Please note: ??Patients with WBC >100,00 0 may have falsely elevated Potassium levels. ??For accurate Potassium quantif ication in these patients send serum separator tube (gold top) for subsequent determinations. ??Contact the Clinical Chemistry Laboratory if there are any qu estions. Chloride 103 98 - 107 mmol/L CERNER MILLENN IUM CO2 21 (L) 22 - 31 mmol/L CERNER MILLENNI UM Anion Gap 15 5 - 15 mmol/L CERNER MILLENNIU M Calcium 8.8 8.5 - 10.5 mg/dL CERNER ELISE NIUM Total Protein 7.3 6.1 - 8.0 gm/dL CERNER MIL LENNIUM Albumin 3.2 3.2 - 5.2 gm/dL CERNER MILLENN IUM AST Not Perf 0 - 39 unit/L CERNER MILLENNIU M Comment: Unable to quantitate due to sample hemol ysis. ??Sample redraw suggested. blr ALT 258 (H) 0 - 55 unit/L CERNER MILLENNIU M Alk Phos 118 40 - 120 unit/L CERNER MILLENN IUM [...] the following links into your internet browser. [email or web address] Specimen Anatomical Collection Method Collection Time Receive d Time (Source) Location / / Volume Laterality Blood specimen 08/25/2014 11:45 5 (specimen) AM EDT 11:54 AM EDT Resulting Agency Comment Spec In Lab Ana Zamora MD CHEMISTRY ORDERABLES Performing Organization Address City/State/ZIP Code Phon e Number [place] [phone] CERNER MILLENNIUM documented in this encounter Visit Diagnoses Diagnosis Myopathy Myopathy, unspecified documented in this encounter Care Teams Rubber Cutting Machine Tender Relationship Specialty Start Date End Date Samantha Baer MD PCP - General 11/07/10 [address] [place] [address] documented as of this encounter
--- OUTSIDE RECORDS SUMMARY | 2022-04-11 10:54 | XMS_ITS | Encounter Summary ---
:1960 Author Organization [facility] [place] [address] Care Team Providers Name Role Phone Jazmine Baer MD Primary Care Provider Encounter Details Date Type Department Care Team Description 01/14/2015 Hospital Encounter Laboratory Parisa Anastasia Liver cirrhosis [facility] MD Nikia secondary to HORTON [facility] [id number] GASTROENTEROLOGY [phone] [facility] [place] [address] Social History Tobacco Use Types Packs/Day Years Used Date Never Smoker Smokeless Tobacco: Never Used Alcohol Use Standard Drinks/Week Comments No 0 (1 standard drink = 0.6 oz pure alcoho l) Sex Assigned at Date Recorded Not on file documented as of this encounter Medications at Time of Discharge Medication Sig Dispensed Refills Start Date End Date multivitamin Capsule Take 1 capsule by mouth 0 daily. UNABLE TO FIND IVIG every month for 2 0 03/16/2016 days insulin glargine Inject 25 Units 10 mL 12 07/13/201412/2015 (LANTUS) Solution subcutaneously nightly. insulin lispro Inject 2-4 Units 10 mL 12 07/13/201412/2015 (HUMALOG) Solution subcutaneously 3 times daily (with [...] tablet daily. documented as of this encounter Plan of Treatment Upcoming Encounters Date Type Specialty Care Team Description 06/19/2022 Office Visit Rheumatology Richi Blackmon MD [facility] ER DR RHEUMATOLOGY [place], [place] [address] (Wo rk) Scheduled Orders Name Type Priority Associated Diagnoses Order S chedule CBC (with Diff) Lab Routine Liver cirrhosis 1 Occurre nces starting secondary to HORTON 01/14/2015 until 01/14/2015 Comprehensive metabolic Lab Routine Liver cirrhosis 1 Occurrences starting panel (non-fasting) secondary to HORTON 12/2014 until 01/14/2015 Prothrombin Time Lab Routine Liver cirrhosis 1 Occurr ences starting secondary to HORTON 01/14/2015 until 01/14/2015 Scheduled Procedures Name Priority Associated Diagnoses Date/Time EGD, UPPER GI ENDOSCOPY Family hx of colon cance r COLONOSCOPY, DIAGNOSTIC Family hx of colon cance r documented as of this encounter Procedures Procedure Name Priority Date/Time Associated Diagnosis Comme nts PROTHROMBIN TIME Routine 01/14/2015 11:12 AM Liver cirrhosis R esults for this EDT secondary to HORTON procedure are in the results section. documented in this encounter Results Prothrombin Time (01/14/2015 11:12 AM EDT) P athologist Signature PT 14.3 12.0 - 15.0 CERNER sec MILLENNIUM Comment: Transfusion Committee Guidelines: INR less than 2.0, PTT less than OR equal to 43.5 seconds, or Fibrinogen greater t villanueva or equal to 100 mg/dl indicate adequate procoagulant activity for hemos tasis in patients without underlying bleeding disorders. INR 1.1 0.9 - 1.1 CERNER SKAI HoldingsIUM Specimen Anatomical Collection Method Collection Time Receive d Time (Source) Location / / Volume Laterality Blood specimen 01/14/2015 11:12 08/07/201 5 (specimen) AM EDT 11:29 AM EDT Resulting Agency Comment Spec In Lab Anastasia Mccauley MD HEMATOLOGY ORDERABLES Performing Organization Address City/State/[place] [address] [facility] documented in this encounter Visit Diagnoses Diagnosis 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 Other chronic nonalcoholic liver disease documented in this encounter Care Teams Water Resources Engineer Relationship Specialty Start Date End Date Jazmine Baer MD PCP - General 11/07/10 [address] [place] [address] documented as of this encounter
--- OUTSIDE RECORDS SUMMARY | 2022-04-11 10:54 | XMS_ITS | Encounter Summary ---
:1960 Author Organization [facility] [place] [address] Care Team Providers Name Role Phone Jazmine Baer MD Primary Care Provider Encounter Details Date Type Department Care Team Description 02/11/2015 Hospital Encounter Ultrasound at [facility] Liver cirrhosis [facility] [place] [address] Social History Tobacco Use Types Packs/Day [...] [facility] ER DR RHEUMATOLOGY [place] [phone] (Wo rk) Scheduled Procedures Name Priority Associated Diagnoses Date/Time EGD, UPPER GI ENDOSCOPY Family hx of colon cance r COLONOSCOPY, DIAGNOSTIC Family hx of colon cance r documented as of this encounter Procedures Procedure Name Priority Date/Time Associated Diagnosis Comme nts US ABDOMEN COMPLETE Routine 02/11/2015 9:48 AM Liver cirrhosis Results for this WITH VASCULAR EDT secondary to HORT[place] procedure are in the results section. documented in this encounter Results US abdomen complete with vascular (02/11/2015 9:48 AM EDT) Anatomical Region Laterality Modality Abdomen Ultrasound Specimen (Source) Anatomical Collection Method Collection Time Re ceived Time Location / / Volume Laterality 02/11/2015 9:48 AM EDT Narrative 02/11/2015 10:07 AM EDT Abdominal Duplex ? (Signed Final 02/11/2015 10:06 am) Patient Info ID #: ? [id number] ? : [birth year] (54 yrs) Name: ? PAU BETH ?Visit Date:02/11/2015 09:45 am Performed By Performed By: ?Ashley Reynolds RDMS Attending: ? Jinny FONSECA, Pau Prieto Referred By: ? KUNAL NORMAN MD Service(s) Provided ??UABDCVASC - Abdominal Complete Survey with Vascular - [id number], [id number] ??[id number], [id number] Indications ??cirrhosis, assess for hepatoma Sep 20 ----- Liver ----- Right Lobe Length: ?? 20.5 ?? cm Echogenicity/Echotexture: ?? Coarse par enchyma Portal Veins: ?Patent Hepatic Veins: ?? Patent ------- Lesions ------- ??# ?Date ?Location ? Description ? L ? AP ?TV (cm) ??1 ?02/11/15 ?Right lobe ?? He mangioma ? 1.8 ?1.4 ? 1.4 ??1 ?08/10/14 ?Right lobe ? Hemangioma ?1.9 ?1.7 ? 1.6 Comment: ?Surface nodularity, consi stent with cirrhosis. Gallbladder Cholelithiasis: ?No stones visua lized Wall Thickness: ?2.6 mm Focal Tenderness: ?Negative Morgan' s sign Biliary Tract Intrahepatic Ducts: ?? Normal Extrahepatic Ducts: ?? Normal Common Duct Size: ? 4.0 ? mm -------- Pancreas -------- Head: ? Normal Tail: ? Poorly visua lized due to overlying bowel Body: ? Poorly visua lized due to overlying bowel ------ Spleen ------ Size (cm) ? L: 17.1 Comment: ?Mild splenomegaly Right Kidney Size (cm) ? L: 12.4 Cortical Thickness: ?Normal Cortical Echogenicity: ?? Normal Hydronephrosis: ?No sonogr aphic evidence Left Kidney Size (cm) ? L: 12.1 Cortical Thickness: ?Normal Cortical Echogenicity: ?? Normal Hydronephrosis: ?No sonogr aphic evidence ----- Aorta ----- Measurements (cm): Proximal ?AP: ??2.2 Mid ? AP: ??1.8 Comment: ?Normal in caliber --- IVC --- Proximal portion, normal in caliber Hepatic-Portal Duplex ? PSV ? RI ??Waveform ? (cm/s) Hepatic Artery: ? 0.74 ??Patent Right Hepatic ? Patent Vein: Middle Hepatic ?Patent Vein: Left Hepatic ?Patent Vein: Main Portal ? 26.7 ?Patent Vein: Right Portal ?Patent Vein: Left Portal Vein: ? Patent Impression Ultrasound - Abdomen Complete - Summary The liver is coarsely echogenic c/w cir rhosis. The small echogenic focus in the right lobe is again seen, unchanged in size and c/w a hemangioma. No other hepatic lesion seen. Mild splenomegaly. No ascites. Ultrasound - Vascular evaluation - Summ mamadou The hepatic veins, portal veins and hep atic artery are patent with normal directional flow. I ??viewed the images and agree with ady lyn above interpretation. ? Pau Stearns MD Electronically Signed Final Report ?? 10:06 am Procedure Note Pau Stearns MD - 02/11/2015Format ting of this note might be different from the original. Abdominal Duplex (Signed Final 02/12/20 15 10:06 am) Patient Info ID #: [id number] : [birth year] (54 y rs) Name: PAULULY BETH Visit Date:02/11 09:45 am Performed By Performed By: Ashley Reynolds RDMS Attending: Pau Stearns MD Referred By: KUNAL NORMAN MD Service(s) Provided UABDCVASC - Abdominal Complete Survey w ith Vascular - 17263, [id number], [id number] Indications cirrhosis, assess for hepatoma Feb 2015 ----- Liver ----- Right Lobe Length: 20.5 cm Echogenicity/Echotexture: Coarse parenc hyma Portal Veins: Patent Hepatic Veins: Patent ------- Lesions ------- # Date Location Description L AP TV (cm ) 1 02/11/15 Right lobe Hemangioma 1.8 1. 4 1.4 1 08/10/14 Right lobe ?? Hemangioma 1.9 1.7 1.6 Comment: Surface nodularity, consistent with cirrhosis. Gallbladder Cholelithiasis: No stones visualized Wall Thickness: 2.6 mm Focal Tenderness: Negative Morgan's sig n Biliary Tract Intrahepatic Ducts: Normal Extrahepatic Ducts: Normal Common Duct Size: 4.0 mm -------- Pancreas -------- Head: Normal Tail: Poorly visualized due to overlyin g bowel Body: Poorly visualized due to overlyin g bowel ------ Spleen ------ Size (cm) L: 17.1 Comment: Mild splenomegaly Right Kidney Size (cm) L: 12.4 Cortical Thickness: Normal Cortical Echogenicity: Normal Hydronephrosis: No sonographic evidence Left Kidney Size (cm) L: 12.1 Cortical Thickness: Normal Cortical Echogenicity: Normal Hydronephrosis: No sonographic evidence ----- Aorta ----- Measurements (cm): Proximal AP: 2.2 Mid AP: 1.8 Comment: Normal in caliber --- IVC --- Proximal portion, normal in caliber Hepatic-Portal Duplex PSV RI Waveform (cm/s) Hepatic Artery: 0.74 Patent Right Hepatic Patent Vein: Middle Hepatic Patent Vein: Left Hepatic Patent Vein: Main Portal 26.7 Patent Vein: Right Portal Patent Vein: Left Portal Vein: Patent Impression Ultrasound - Abdomen Complete - Summary The liver is coarsely echogenic c/w cir rhosis. The small echogenic focus in the right lobe is again seen, unchanged in size and c/w a hemangioma. No other hepatic lesion seen. Mild splenomegaly. No ascites. Ultrasound - Vascular evaluation - Summ mamadou The hepatic veins, portal veins and hep atic artery are patent with normal directional flow. I viewed the images and agree with the above interpretation. Pau Stearns MD Electronically Signed Final Report 02/11 10:06 am Kunal Norman MD IMG US GEN ORDERABLES documented in this encounter Visit Diagnoses Diagnosis 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 Other chronic nonalcoholic liver disease documented in this encounter Care Teams Marine Tower Operator Relationship Specialty Start Date End Date Jazmine Baer MD PCP - General 11/07/10 [address] [place] [address] documented as of this encounter
--- OUTSIDE RECORDS SUMMARY | 2022-04-11 10:54 | XMS_ITS | Encounter Summary ---
:1960 Author Organization [facility] [place] [address] Care Team Providers Name Role Phone Samantha Baer MD Primary Care Provider Encounter Details Date Type Department Care Team Description 09/15/2014 Office Visit Neurology at [facility] Henrry Gleason MD [facility] [place] [address] Statin myopathy [facility] Ruperto Ocampo MD [facility] [place] [address] [place] [address] Social History Tobacco Use Types Packs/Day Years Used Date Never Smoker Smokeless Tobacco: Never Used Alcohol Use Standard Drinks/Week Comments No 0 (1 standard drink = 0.6 oz pure alcoho l) Sex Assigned at Date Recorded Not on file documented as of this encounter Last Filed Vital Signs Vital Sign Reading Time Taken Comments Blood Pressure 150/68 09/15/2014 2:43 PM EDT Pulse 62 09/15/2014 2:43 PM EDT Temperature - - Respiratory Rate - - Oxygen Saturation - - Inhaled Oxygen Concentration - - Weight 104.3 kg (230 lb) 09/15/2014 2:43 PM EDT Height 174 cm (5' 8.5) 09/15/2014 2:43 PM EDT Body Mass Index 34.46 09/15/2014 2:43 PM EDT documented in this encounter Patient Instructions Patient InstructionsUmemura, Yoshie, MD - 09/15/2014 4:02 PM EDT ?? Blood work in 1 month (to check CD19 level) ?? Follow up with Dr. Prieto as scheduled on October 15 ?? Follow up with Dr. Gleason in about 3 months in neurology clinic, clinic visit to be coordinated to be on the same day as your other appontments documented in this encounter Progress Notes Ruperto Mcclellan MD - 09/15/2014 3:49 PM EDT Neurology Clinic Note Patient Name: Bucky Acevedo : 1960 PCP: SAMANTHA BAER MD Clinic Attending: Dr. Gleason Patient ID: Bucky Acevedo is a 54 y.o. man with h/o anti-HMGCR autoimmune myopathy (detailed below) here for scheduled FU visit. Patient was last seen by me on 08/25/14. Patient Active Problem List Diagnosis ??? Imbalance ??? Skin rash ??? Durand's esophagus Overview [...] see Dr. Bucky Marie @ [facility] ?? Initial work up and differential diagnosis ?? Onset: late 2008, pain in back & RLE, progressive weakness with walking in setting of being on statin x about 9 years ?? Jun 2009: progressive muscle weakness ?? No improvement with stopping statin & oral prednisone -> further work [place]opathy -> [place] [address] ?? Muscle Bx @ [facility] Jul 2009 (Dr. Gleason) c/w necrotizing myopathy (cannot rule out inclusion body myositis) ?? Bx reviewed by Dr. Ricardo in [place], consistent with necrotizing myopathy without significant infalmmation [...] Antibody Panel Plus 06/2009 negative (anti-Kiesha, PM/SCL, MO-2, PL-7, PL-12, EJ, OJ KU, U2 SN MANAGER SHIPPING, SRP) ?? mitochondrial mutations: Absence of all [...] ?? Stopped MTX in summer (seen in [place] for this decision) but stopped seeing Dr. [...] on CD19 level REFERENCES: Curr Opin Rheumatol. 2011 Apr;23(6):612-9. doi: 10.1097/BOR.[id number]. Necrotizing autoimmune myopathy. Navya Kerr. Muscle Nerve. 2010 Jul;41(2):185-90. doi: 10.1002/mus.72141. Immune-mediated necrotizing myopathy associated with statins. Lewis P1, Dominik HANSEN, Cynthia SA, Keith J, Julissa J, Davion AA. Interval History: Finished the 4th dose (last) of Rituxan induction today. Saw Dr. Prieto on 09/09, scheduled to be seenagain by him on 10/15. He received PT in conjunction with infusions here. His PT has been transferred to a local facility as he is done with infusions for now. He's been using a walker at home, sometimescane on a good day but told by PT to stick with the walker more. He feels the weakness has been about unchanged. Back pain somewhat worse, DM in better control. Past Medical History Diagnosis Date ??? Diabetes ??? Hypertension ??? Hyperlipidemia ??? Gout ??? Obesity ??? Kidney stone ??? 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 Shingles 2010 ??? DM II (diabetes mellitus, type II), controlled ??? Cirrhosis Medications: Medications 09/15/14 1446 Medication Sig Taking? RITUXIMAB (RITUXAN IV) Inject into the vein. Yes insulin glargine (LANTUS) Solution Inject 25 Units subcutaneously nightly. Patient taking differently: Inject 75 Units subcutaneously nightly. Yes insulin lispro (HUMALOG) Solution Inject 2-4 Units subcutaneously 3 times daily (with meals). Patient taking differently: Inject 10-12 Units subcutaneously 3 times daily (with meals). Yes insulin glargine (LANTUS) Solution Inject 25 [...] Itching and Rash ??? Morphine Itching ??? Jztfklu-Bcn-Gap Reductase Inhibitors Myopathy Review of systems: Constitutional: [...] systems otherwise negative Physical Exam: Filed Vitals: 09/15/14 1443 BP: 150/68 Pulse: 62 Height: 174 cm (5' 8.5) Weight: 104.327 kg (230 lb) Gen: NAD Neck: Supple Resp: Breathing comfortably Neuro Exam: MS: AAOx4, clear language, no dysarthria, follows commands CN: PERRL, EOMI, no facial asymmetry, my intact to voice Motor: Normal bulk and tone. 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 BL LE: 3/5 BL hip flexion, 5/5 BL knee extension, 4/5 BL knee flexion, 5/5 BL foot dorsi/plantarflexion Sensory: intact to light touch DTRs diminished throughout Labs: Recent Results (from the past 24 hour(s)) HEMOGRAM Result Value Ref Range WBC 4.5 4.0 - 10.0 x10(3)/mcL RBC 3.87 (*) 4.63 - 6.08 x10(6)/mcL Hemoglobin 11.7 (*) 13.7 - 17.5 gm/dL Hematocrit 35.9 (*) 40.0 - 51.0 % MCV 92.8 (*) 79.0 - 92.0 fL MCH 30.2 25.6 - 32.2 pg MCHC 32.6 32.0 - 36.5 gm/dL Platelets 121 (*) 145 - 370 x10(3)/mcL RDWSD 49.8 (*) 35.0 - 46.0 fL RDWCV 14.7 (*) 10.9 - 14.4 % MPV 10.7 9.0 - 12.0 fL DIFFERENTIAL, AUTOMATED Result Value Ref Range Neutrophils % 91.4 Neutr Abs (ANC) 4.15 1.50 - 6.30 x10(3)/mcL Lymphocytes % 7.5 Lymphocytes Abs 0.3 (*) 1.0 - 3.6 x10(3)/mcL Monocytes % 0.2 Monocyte Abs 0.0 (*) 0.2 - 1.0 x10(3)/mcL Eosinophils % 0.7 Eosinophils Abs 0.0 0.0 - 0.5 x10(3)/mcL Basophils % 0.2 Basophils Abs 0.0 0.0 - 0.2 x10(3)/mcL Immature Gran % 0.00 Tamara Gran Abs 0.00 0.00 - 0.05 x10(3)/mcL Diagnostic Tests and Imaging: No new imaging studies Assessment / Plan: Bucky Acevedo is a 54 y.o. 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 CK is coming down (today's lab pending) and weakness is stable and no longer worsening. -FU CK from today -check CD19 in 1 month -will ask Dr. Prieto to manage Rituxan from here on out -continue PT -FU with Dr. Gleason in coordination with visits with Dr. Prieto's appointment in about 3 months (ptwould like to wait to make appt until he sees Dr. Prieto on 10/15, then make both FU with Dr. Prieto and Dr. Gleason after that) Ruperto Mcclellan MD Neurology Resident, PGY4 Pager [phone] Neurology Staff Note I have reviewed the above resident's history during the visit and I agree with the details as written. My physical examination confirms the resident's findings. The assessment and plan were formulated in discussion with me at the time of the visit and I agree with them as documented. Patient is in need of a lift chair because of his severe neuromuscular compromised related to his statin induced autoimmune myopathy. documented in this encounter Plan of Treatment Upcoming Encounters Date Type Specialty Care Team Description 06/19/2022 Office Visit Rheumatology Richi Blackmon MD [facility] ER DR RHEUMATOLOGY [place], [place] [address] (Wo rk) Scheduled Procedures Name Priority Associated Diagnoses Date/Time EGD, UPPER GI ENDOSCOPY Family hx of colon cance r COLONOSCOPY, DIAGNOSTIC Family hx of colon cance r documented as of this encounter Procedures Procedure Name Priority Date/Time Associated Diagnosis Comme nts HEMOGRAM Routine 09/15/2014 4:03 PM Statin myopathy Result s for this EDT procedure are i n the results section. DIFFERENTIAL, Routine 09/15/2014 4:03 PM Statin myopathy Resul ts for this AUTOMATED EDT procedure are i n the results section. CBC (WITH DIFF) Routine 09/15/2014 4:03 PM Statin myopathy EDT CK Routine 09/15/2014 4:03 PM Statin myopathy Result s for this EDT procedure are i n the results section. documented in this encounter Results (ABNORMAL) Differential, Automated (09/15/2014 4:03 PM EDT) [facility] Method Time Signature Neutrophils % 91.4 % CERNER MILLENNIUM Neutr Abs (ANC) 4.15 1.50 - CERNER 6.30 MILLENNIUM x10(3)/mcL Lymphocytes % 7.5 % CERNER MILLENNIUM Lymphocytes Abs 0.3 (L) 1.0 - 3.6 CERNER x10(3)/mcL MILLENNIUM Monocytes % 0.2 % CERNER MILLENNIUM Monocyte Abs 0.0 (L) 0.2 - 1.0 CERNER x10(3)/mcL MILLENNIUM Eosinophils % 0.7 % CERNER MILLENNIUM Eosinophils Abs 0.0 0.0 - 0.5 CERNER x10(3)/mcL MILLENNIUM Basophils % 0.2 % CERNER MILLENNIUM Basophils Abs 0.0 0.0 - 0.2 CERNER x10(3)/mcL MILLENNIUM Immature Gran % 0.00 % CERNER MILLENNIUM Comment: Immature granulocytes(IG's)percentage an d absolute count will include metamyelocytes, myelocytes, and promyelo cytes. Blood smears from CBCs yielding IG's will be scanned manually for concor dance. If this scan disagrees with the automated IG or if promyelocytes are not ed, a manual differential will be performed. Tamara Gran Abs 0.00 0.00 - 0.05 x10(3)/mcL CER NER MILLENNIUM Specimen Anatomical Collection Method Collection Time Receive d Time (Source) Location / / Volume Laterality Blood specimen 09/15/2014 4:03 PM 015 4:10 (specimen) EDT PM EDT Resulting Agency Comment Spec In Lab Henrry Gleason MD HEMATOLOGY ORDERABLES Performing Organization Address City/State/[place] [address] CERNER MILLENNIUM (ABNORMAL) Hemogram (09/15/2014 4:03 PM EDT) P athologist Signature WBC 4.5 4.0 - 10.0 CERNER x10(3)/mcL MILLENNIUM RBC 3.87 (L) 4.63 - CERNER 6.08 MILLENNIUM x10(6)/mcL Hemoglobin 11.7 (L) 13.7 - CERNER 17.5 gm/dL MILLENNIUM Hematocrit 35.9 (L) 40.0 - CERNER 51.0 % MILLENNIUM MCV 92.8 (H) 79.0 - CERNER 92.0 fL MILLENNIUM MCH 30.2 25.6 - CERNER 32.2 pg MILLENNIUM MCHC 32.6 32.0 - CERNER 36.5 gm/dL MILLENNIUM Platelets 121 (L) 145 - 370 CERNER x10(3)/mcL MILLENNIUM RDWSD 49.8 (H) 35.0 - CERNER 46.0 fL MILLENNIUM RDWCV 14.7 (H) 10.9 - CERNER 14.4 % MILLENNIUM MPV 10.7 9.0 - 12.0 CERNER fL MILLENNIUM Specimen Anatomical Collection Method Collection Time Receive d Time (Source) Location / / Volume Laterality Blood specimen 09/15/2014 4:03 PM 015 4:10 (specimen) EDT PM EDT Resulting Agency Comment Spec In Lab Henrry Gleason MD HEMATOLOGY ORDERABLES Performing Organization Address City/State/ZIP Code Phon e Number [address] CERNER MILLENNIUM (ABNORMAL) CK (09/15/2014 4:03 PM EDT) athologist Signature CK, Total 3,809 (H) 0 - 200 CERNER unit/L MILLENNIUM Comment: result rechecked-NM Specimen Anatomical Collection Method Collection Time Receive d Time (Source) Location / / Volume Laterality Blood specimen 09/15/2014 4:03 PM 015 4:10 (specimen) EDT PM EDT Resulting Agency Comment Spec In Lab Henrry Gleason MD CHEMISTRY ORDERABLES Performing Organization Address City/[facility]/ZIP [place] [address] CERNER MILLENNIUM documented in this encounter Visit Diagnoses Diagnosis Statin myopathy Toxic myopathy documented in this encounter 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
--- OUTSIDE RECORDS SUMMARY | 2022-04-11 10:54 | XMS_ITS | Encounter Summary ---
:1960 Author Organization [facility] [place] [address] Care Team Providers Name Role Phone Jazmine Baer MD Primary Care Provider Reason for Visit Reason Comments Follow-up Encounter Details Date Type Department Care Team Description 02/11/2015 Follow-Up Gastroenterology at [facility], DR CONV Liver cirrhosis [facility] Kunal Harrington MD [facility] [place] [address] [place] [address] (Primary Dx) [phone] Social History Tobacco Use Types Packs/Day Years Used Date Never Smoker Smokeless Tobacco: Never Used Alcohol Use Standard Drinks/Week Comments No 0 (1 standard drink = 0.6 oz pure alcoho l) Sex Assigned at Date Recorded Not on file documented as of this encounter Last Filed Vital Signs Vital Sign Reading Time Taken Comments Blood Pressure 161/60 02/11/2015 11:03 AM EDT Pulse 60 02/11/2015 11:03 AM EDT Temperature - - Respiratory Rate - - Oxygen Saturation - - Inhaled Oxygen Concentration - - Weight 113.4 kg (250 lb) 02/11/2015 11:03 AM EDT Height 172.7 cm (5' 8) 02/11/2015 11:03 AM EDT Body Mass Index 38.01 02/11/2015 11:03 AM EDT documented in this encounter Progress Notes Kunal Norman MD - 02/11/2015 11:27 AM EDT Gastroenterology and Hepatology Follow Up Note Patient: Bucky Beth Gender: Male : 1960 Provider: Kunal Norman MD Interval History: Mr. Beth is here for follow up for HORTON Cirrhosis. I last saw him in August 2014. He is doing well from a liver standpoint. 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 He is currently receiving IVIg 2 days every month and Solumedrol. Because of this he hasn't been able to exercise. His diabetes is well controlled, his last HgA1c is 6.1%. We reviewed his recent blood work and imaging from today. US of the abdomen: Feb 11, 2015- liver is coarsely echogenic c/w cirrhosis. The small echogenic focusin the right lobe is again seen, unchanged in size and c/w a hemangioma. No other hepatic lesion seen. Mild splenomegaly. No ascites. Preventative Health: 1. HAV/HBV: (+)/(-)- received last shot of HBV vaccine 2. Colonoscopy - 07/21/13 hyperplastic polyp. Due again 07/2023 3. Portal HTN: EGD 07/21/13 no EV. Due again 07/2016 4. HCC Surveillance: MRI 01/27/14 no liver lesions concerning for HCC (stable hemangioma). AFP 5.1 (01/27/14). US Abdomen- cirrhotic liver, no focal lesions 5. Influenza: 2012 6. Pneumovax: unknown Problem List: 1. Cirrhosis- 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 Metabolic risk factors: HTN, T2DM, Obese, dyslipidemia. No liver biopsy - 1st presentation- Elevated liver enzymes since 2009 when he was diagnosed with myositis - Complicated with transient HE minimal improvement with RIfaximin (01/2014) - No ascites, on EV 2. Liver Hemangioma 1.6cm 3. DM2 4. HTN 5. Hypertension 6. Myositis- statin induced myoapthy - Jun 2014-received IVIg x 2days every month and Solumedrol 7. 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 UNABLE TO FIND Solumedrol pulse before IVIG ??? UNABLE TO FIND IVIG every month for 2 days ??? insulin glargine (LANTUS) Solution Inject 25 Units subcutaneously nightly. (Patient taking differently: Inject 75 Units subcutaneously nightly.) 10 mL 12 ??? insulin lispro (HUMALOG) Solution Inject 2-4 Units subcutaneously 3 times daily (with meals). (Patient taking differently: Inject 10-12 Units subcutaneously 3 times daily (with meals).) 10 mL 12 ??? insulin glargine (LANTUS) Solution Inject 25 Units subcutaneously every morning. ??? multivitamin Capsule Take 1 capsule by [...] tablet Take 50 mg by mouth daily. ??? ferrous sulfate 325 mg (65 mg iron) Tablet Take 1 tablet by mouth 2 times daily. 60 tablet 12 No current facility-administered medications for this visit. ALLERGIES/ADR Allergies Allergen Reactions ??? Methotrexate Hives, Itching and Rash ??? Morphine Itching ??? Eutayxt-Bjq-Byw Reductase Inhibitors Myopathy PHYSICAL EXAMINATION: Filed Vitals: 02/11/15 1103 BP: 161/60 Pulse: 60 Height: 172.7 cm (5' 8) Weight: 113.399 kg (250 lb) Body mass index is 38.02 kg/(m^2). GEN: Healthy in appearance, no acute [...] cyanosis or edema PERTINENT LABS AND IMAGING: Lab Results Component Value Date WBC 5.8 01/14/2015 WBC 5.8 01/14/2015 HGB 12.4* 01/14/2015 HCT 36.8* 01/14/2015 MCV 88.7 01/14/2015 Lab Results Component Value Date ALT 121* 01/14/2015 AST 95* 01/14/2015 GGT 124* 05/14/2013 ALKPHOS 115 01/14/2015 BILITOT 0.5 01/14/2015 Chemistry Component Value Date/Time NA 140 01/14/2015 1112 K 4.3 01/14/2015 1112 CL 104 01/14/2015 1112 CO2 20* 01/14/2015 1112 BUN 24* 01/14/2015 1112 CREATININE 0.77* 01/14/2015 1112 Component Value Date/Time CALCIUM 9.8 01/14/2015 1112 ALKPHOS 115 01/14/2015 1112 AST 95* 01/14/2015 1112 ALT 121* 01/14/2015 1112 BILITOT 0.5 01/14/2015 1112 IMPRESSION/PLAN: Mr. Beth is a 54M with well compensated HORTON cirrhosis. His liver enzymes have slightly improved.HORTON is the least of his problems at this time. He should continue to focus on managing his diabetesand making healthy food choices. Once he is more ambulatory he can focus on exercising. I have cautioned his on signs and symptoms to watch out for requiring immediate medical attention: jaundice,confusion, lethargy, abdominal distention and vomiting blood or melena. I will see him back in clinic in 6 months with blood work and US the same day. The patient was given my contact information and will call me with concerns or questions 25 minutes of this 30 minute [id number]-az-[id number] encounter were spent counseling the patient in HORTON cirrhosis. Kunal Norman MD Section of Gastroenterology [place] [address] Cc: JAZMINE BAER MD (General) [address] [place] [address] documented in this encounter Plan of Treatment Upcoming Encounters Date Type Specialty Care Team Description 06/19/2022 Office Visit Rheumatology Richi Blackmon MD [facility] ER RHEUMATOLOGY [place] [address] (Wo rk) Scheduled Orders Name Type Priority Associated Diagnoses Order S chedule CBC (with Diff) Lab Routine Liver cirrhosis Expected: 02/11/2015 secondary to HORTON (Approxima te), Expires: 2015 Comprehensive metabolic Lab Routine Liver cirrhosis E xpected: 02/11/2015 panel (non-fasting) secondary to HORTON (Ap proximate), Expires: 2015 Scheduled Procedures Name Priority Associated Diagnoses Date/Time EGD, UPPER GI ENDOSCOPY Family hx of colon cance r COLONOSCOPY, DIAGNOSTIC Family hx of colon cance r documented as of this encounter Results Prothrombin Time (08/19/2015 10:13 AM EST) P athologist Signature PT 14.7 12.0 - 15.0 [facility] LABORATORY Comment: An INR <2.0 indicates [...] circumstances. INR 1.1 0.9 - 1.1 [facility] LABOR[facility] Specimen Anatomical Collection Method Collection Time Receive d Time (Source) Location / / Volume Laterality Blood specimen 08/19/2015 10:13 6 (specimen) AM EST 10:17 AM EST Resulting Agency Comment Spec In Lab Kunal Norman MD HEMATOLOGY ORDERABLES Performing Organization Address City/State/[place] [address] US Abdomen Complete With Vascular (08/19/2015 9:00 AM EST) Anatomical Region Laterality Modality Abdomen Ultrasound Specimen (Source) Anatomical Collection Method Collection Time Re ceived Time Location / / Volume Laterality 08/19/2015 9:02 AM EST Impressions 08/19/2015 9:13 AM EST Impression Ultrasound - Abdomen Complete - Summary Coarsely echogenic liver c/w chronic li uzair disease. No focal hepatic mass seen. The small right lobe hemangioma noted previously is not seen. Mild splenomegaly. No ascites. Ultrasound - Vascular evaluation - Summ mamadou The hepatic veins, portal veins and hep atic artery are patent with normal directional flow in the main por tristin vein. I ??viewed the images and agree with ady lyn above interpretation. ? Bucky Stearns MD Electronically Signed Final Report ?? 09:12 am Narrative 08/19/2015 9:13 AM EST Abdominal Duplex ? (Signed Final 08/19/2015 09:12 am) Patient Info ID #: ? [id number] ? : [birth year] (55 yrs) Name: ? BUCKY BETH ?Visit Date:08/19/2015 09:02 am Performed By Performed By: ? Angel Luis Curran RDMS Attending: ?Jinny FONSECA, Les Lindsay. Referred By: ?KUNAL NORMAN MD Service(s) Provided ??UABDCVASC - Abdominal Complete Survey with Vascular - [id number], [id number] ??[id number] Indications ??HORTON cirrhosis, assess for HCC and PV patency Comparison U/S - ABD. VASC . 02/11/15 ----- Liver ----- Right Lobe Length: ?? 19.9 ?? cm Echogenicity/Echotexture: ?? Coarse par enchyma Portal Veins: ?Patent Hepatic Veins: ?? Patent ------- Lesions ------- ??# ?Date ?Location ?Description ?L ?AP ? TV (cm) ??1 ?02/11/15 ?Right lobe ? Hemangioma ?1.8 ?1.4 ? 1.4 ??1 ?08/10/14 ?Right lobe ? Hemangioma ? 1.9 ?1.7 ? 1.6 Comment: ?Surface nodularity. Gallbladder Cholelithiasis: ?No stones visua lized Wall Thickness: ?2.0 mm Focal Tenderness: ?Negative sonogra phic Morgan's sign Biliary Tract Intrahepatic Ducts: ?? Normal Extrahepatic Ducts: ?? Normal Common Duct Size: ? 5.0 ? mm -------- Pancreas -------- Head: ? Poorly visua lized due to overlying bowel Tail: ? Poorly visua lized due to overlying bowel Body: ? Poorly visua lized due to overlying bowel ------ Spleen ------ Size (cm) ? L: 16.4 ?AP: ??6 .6 ? TV: ??5.2 Vol (ml): ?294.7 Comment: ?Mildly large Right Kidney Size (cm) ? L: 12.4 Cortical Thickness: ?Normal Cortical Echogenicity: ?? Normal Hydronephrosis: ?No sonogr aphic evidence Left Kidney Size (cm) ? L: 11.7 Cortical Thickness: ?Normal Cortical Echogenicity: ?? Normal Hydronephrosis: ?No sonogr aphic evidence ----- Aorta ----- Measurements (cm): Proximal ?AP: ??2.4 Mid ? AP: ??2.3 Distal ?AP: ??1.7 Comment: ?Normal in caliber --- IVC --- Proximal portion, normal in caliber Hepatic-Portal Duplex ? PSV ? ED V ? RI ??Waveform ? (cm/s) ??(cm/s) Hepatic Artery: ??138.0 ?19.2 ? 0.86 ??Patent Right Hepatic ? Not visualized Artery: Left Hepatic ?Patent Artery: Right Hepatic ? Patent Vein: Middle Hepatic ?Patent Vein: Left Hepatic ?Patent Vein: Portal Vein At ?Patent Lyndon: Main Portal ? 29.5 ?Hepatopetal Vein: Right Portal ?Patent Vein: Left Portal Vein: ? Patent Splenic Vein At ? Patent Lyndon: Splenic Vein: ? Patent Procedure Note Bucky Stearns MD - 08/19/2015Format ting of this note might be different from the original. Abdominal Duplex (Signed Final 08/19/19 16 09:12 am) Patient Info ID #: [id number] : [birth year] (55 y rs) Name: BUCKY BETH Visit Date:08/18 09:02 am Performed By Performed By: Angel Luis Curran RDMS Attending: Bucky Stearns MD Referred By: KUNAL NORMAN MD Service(s) Provided UABDCVASC - Abdominal Complete Survey w [facility] Vascular - [id number], [id number] Indications HORTON cirrhosis, assess for HCC and PV p atency Comparison U/S - ABD. VASC . 02/11/15 ----- Liver ----- Right Lobe Length: 19.9 cm Echogenicity/Echotexture: Coarse parenc hyma Portal Veins: Patent Hepatic Veins: Patent ------- Lesions ------- # Date Location Description L AP TV (cm ) 1 02/11/15 Right lobe Hemangioma 1.8 1. 4 1.4 1 08/10/14 Right lobe ?? Hemangioma 1.9 1.7 1.6 Comment: Surface nodularity. Gallbladder Cholelithiasis: No stones visualized Wall Thickness: 2.0 mm Focal Tenderness: Negative sonographic Morgan's sign Biliary Tract Intrahepatic Ducts: Normal Extrahepatic Ducts: Normal Common Duct Size: 5.0 mm -------- Pancreas -------- Head: Poorly visualized due to overlyin g bowel Tail: Poorly visualized due to overlyin g bowel Body: Poorly visualized due to overlyin g bowel ------ Spleen ------ Size (cm) L: 16.4 AP: 6.6 TV: 5.2 Vol (ml): 294.7 Comment: Mildly large Right Kidney Size (cm) L: 12.4 Cortical Thickness: Normal Cortical Echogenicity: Normal Hydronephrosis: No sonographic evidence Left Kidney Size (cm) L: 11.7 Cortical Thickness: Normal Cortical Echogenicity: Normal Hydronephrosis: No sonographic evidence ----- Aorta ----- Measurements (cm): Proximal AP: 2.4 Mid AP: 2.3 Distal AP: 1.7 Comment: Normal in caliber --- IVC --- Proximal portion, normal in caliber Hepatic-Portal Duplex PSV EDV RI Waveform (cm/s) (cm/s) Hepatic Artery: 138.0 19.2 0.86 Patent Right Hepatic Not visualized Artery: Left Hepatic Patent Artery: Right Hepatic Patent Vein: Middle Hepatic Patent Vein: Left Hepatic Patent Vein: Portal Vein At Patent Lyndon: Main Portal 29.5 Hepatopetal Vein: Right Portal Patent Vein: Left Portal Vein: Patent Splenic Vein At Patent Lyndon: Splenic Vein: Patent IMPRESSION Impression Ultrasound - Abdomen Complete - Summary Coarsely echogenic liver c/w chronic li uzair disease. No focal hepatic mass seen. The small right lobe hemangioma noted previously is not seen. Mild splenomegaly. No ascites. Ultrasound - Vascular evaluation - Summ mamadou The hepatic veins, portal veins and hep atic artery are patent with normal directional flow in the main por tristin vein. I viewed the images and agree with the above interpretation. Bucky Stearns MD Electronically Signed Final Report 08/18 09:12 am Kunal Norman MD IMG US GEN ORDERABLES documented in this encounter Visit Diagnoses Diagnosis 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 - Prim mamadou Other chronic nonalcoholic liver disease 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 Other chronic nonalcoholic liver disease documented in this encounter Care Teams Undercover Agent Relationship Specialty Start Date End Date Jamzine Baer MD PCP - General 11/07/10 [address] [place] [address] documented as of this encounter
--- OUTSIDE RECORDS SUMMARY | 2022-04-11 10:54 | XMS_ITS | Encounter Summary ---
:1960 Author Organization [facility] [place] [address] Care Team Providers Name Role Phone Jazmine Baer MD Primary Care Provider Encounter Details Date Type Department Care Team Description 08/25/2014 External Results [facility] Pharmacy Ana Zamora MD [place] [address] NEUROLOGY DEPT. [phone] [place], [place] [address] (Wo rk) Social History Tobacco [...] [facility] RHEUMATOLOGY DEP [place], [place] [address] (Wo rk) Scheduled Procedures Name Priority Associated Diagnoses Date/Time EGD, UPPER GI ENDOSCOPY Family hx of colon cance r COLONOSCOPY, DIAGNOSTIC Family hx of colon cance r documented as of this encounter Visit Diagnoses Not on filedocumented in this encounter Care Teams Graphic Pre Press Trades Worker Relationship Specialty Start Date End Date Jazmine Baer MD PCP - General 11/07/10 [address] [place] [address] documented as of this encounter
--- OUTSIDE RECORDS SUMMARY | 2022-04-11 10:54 | XMS_ITS | Encounter Summary ---
:1960 Author Organization [facility] [place] [address] Care Team Providers Name Role Phone Jazmine Baer MD Primary Care Provider Encounter Details Date Type Department Care Team Description 03/15/2015 Office Visit Neurology at [facility] Henrry Gleason, Autoimmune necrotizing [facility] [place] [place] [address] NEUROLOGY DEPT. [phone] [place], [place] [address] Social History Tobacco Use Types Packs/Day Years Used Date Never Smoker Smokeless Tobacco: Never Used Alcohol Use Standard Drinks/Week Comments No 0 (1 standard drink = 0.6 oz pure alcoho l) Sex Assigned at Date Recorded Not on file documented as of this encounter Last Filed Vital Signs Vital Sign Reading Time Taken Comments Blood Pressure 170/61 03/15/2015 9:59 AM EDT Pulse 66 03/15/2015 9:59 AM EDT Temperature - - Respiratory Rate - - Oxygen Saturation - - Inhaled Oxygen Concentration - - Weight 114.3 kg (252 lb) 03/15/2015 9:59 AM EDT Height 175.3 cm (5' 9) 03/15/2015 9:59 AM EDT Body Mass Index 37.21 03/15/2015 9:59 AM EDT documented in this encounter Progress Notes Henrry Gleason MD - 03/15/2015 10:06 AM EDT 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 Dose of IV steroids last month. His CPK iscreeping down and is presently 1100's as of the end of Feb 22.. He is now walking with a walker. He is a heavy man at 252 pounds. Trying to do some walking and PT guided exercises. Pleased that he is improving. He denies any bowel or bladder dysfunction or any shortness of breath or chest pain. Some leg swelling which is getting better with walking. On exam, arms are full strength now. He has 3+/5 weakness in the iliopsoas and quads bilaterally and near normal strength distally in his lower extremities. The knee flexors may be slightly weak as well. He is areflexic. His sensory exam is normal. Cranial nerves are unremarkable. He has no major atrophy of his muscles. He is walking with a walker. I would maintain present course. We will arrange for another two days of IVIG next week. We will also arrange for IV steroids at the same time. He is definitely making progress. ESR and CPK to be checked today. He is to call me in the interim with any questions. He will followup with me and Dr. Prieto in the next 6 weeks or so onsame day. documented in this encounter Plan of Treatment Upcoming Encounters Date Type Specialty Care Team Description 06/19/2022 Office Visit Rheumatology Richi Blackmon MD [facility] ER DR RHEUMATOLOGY [place], [place] [address] (Wo rk) Scheduled Procedures Name Priority Associated Diagnoses Date/Time EGD, UPPER GI ENDOSCOPY Family hx of colon cance r COLONOSCOPY, DIAGNOSTIC Family hx of colon cance r documented as of this encounter Results (ABNORMAL) Sedimentation rate (03/15/2015 10:45 AM EDT) P athologist Signature Sed Rate 93 (H) 0 - 15 CERNER mm/hr [facility] Specimen Anatomical Collection Method Collection Time Receive d Time (Source) Location / / Volume Laterality Blood specimen 03/15/2015 10:45 5 (specimen) AM EDT 10:58 AM EDT Resulting Agency Comment Spec In Lab Henrry Gleason MD HEMATOLOGY ORDERABLES Performing Organization Address City/State/[place] [address] CERNER MILLENNIUM (ABNORMAL) CK (03/15/2015 10:45 AM EDT) P athologist Signature CK, Total 316 (H) 0 - 200 CERNER unit/L MILLENNIUM Specimen Anatomical Collection Method Collection Time Receive d Time (Source) Location / / Volume Laterality Blood specimen 03/15/2015 10:45 5 (specimen) AM EDT 10:58 AM EDT Resulting Agency Comment Spec In Lab Henrry Gleason MD CHEMISTRY ORDERABLES Performing Organization Address City/[facility]/ZIP Code Phon e Number [address] CERNER MILLENNIUM documented in this encounter Visit Diagnoses Diagnosis Autoimmune necrotizing myopathy documented in this encounter Care Teams Noodle Catalyst Maker Relationship Specialty Start Date End Date Jazmine Baer MD PCP - General 11/07/10 [address] [place] [address] documented as of this encounter
--- OUTSIDE RECORDS SUMMARY | 2022-04-11 10:54 | XMS_ITS | Encounter Summary ---
:1960 Author Organization [facility] [place] [address] Care Team Providers Name Role Phone Jazmine Baer MD Primary Care Provider Reason for Visit Reason Onset Date Comments Other 12/08/2014 IVIG Questions Encounter Details Date Type Department Care Team Description 12/08/2014 Telephone [place] [facility] Corrie Martin, Other (IVIG Questions) [facility] [place] [address] Social History Tobacco Use Types Packs/Day Years Used Date Never Smoker Smokeless Tobacco: Never Used Alcohol Use Standard Drinks/Week Comments No 0 (1 standard drink = 0.6 oz pure alcoho l) Sex Assigned at Date Recorded Not on file documented as of this encounter Miscellaneous Notes Telephone Encounter - Ngozi Hansen RN - 12/09/2014 9:55 AM EDT I spoke with them he is to receive IVIg on day one and day two then wait a month and again day one and day two with 1gm solumedrol as a premed Telephone Encounter - Corrie Martin RN - 12/08/2014 3:01 PM EDT Lisset calls nurse triage line with questions regarding IVIG. Called [facility], spoke with Lisset. She states that last week Bucky received incorrect dose of IVIG, states he rec'd only half dose both days. States they rec'd new order with correct dose, but that Bucky went there today stating someone toldhim he could have the other half of his dose. Lisset states he is scheduled for infusion on the and . Wants to clarify if four weeks need to pass between infusions. Does Dr. Prieto indeed want him to have the other half of the dose, and when? Wants to clarify that he is to get 1000 mg Solumedrol pre infusion. Requests order be faxed for specific time frame to pass between infusions to [phone]. Call back number is [phone] for questions. Will forward to Dr. Prieto for review and to his Primary RN for review. documented in this encounter Plan of Treatment Upcoming Encounters Date Type Specialty Care Team Description 06/19/2022 Office Visit Rheumatology Richi Blackmon MD [facility] ER DR RHEUMATOLOGY [place], [place] [address] (Wo rk) Scheduled Procedures Name Priority Associated Diagnoses Date/Time EGD, UPPER GI ENDOSCOPY Family hx of colon cance r COLONOSCOPY, DIAGNOSTIC Family hx of colon cance r documented as of this encounter Visit Diagnoses Not on filedocumented in this encounter Care Teams Glued Wood Tester Relationship Specialty Start Date End Date Jazmine Baer MD PCP - General 11/07/10 [address] [place] [address] documented as of this encounter
--- OUTSIDE RECORDS SUMMARY | 2022-04-11 10:54 | XMS_ITS | Encounter Summary ---
:1960 Author Organization [facility] [place] [address] Care Team Providers Name Role Phone Jazmine Bear MD Primary Care Provider Reason for Visit Reason Comments Follow-up Encounter Details Date Type Department Care Team Description 10/15/2014 Follow-Up Rheumatology at [facility] Akash Prieto MD [facility] [place] [address] RHEUMATOLOGY DEPT. [phone] [place] [address] (Wo rk) Social History Tobacco Use Types Packs/Day Years Used Date Never Smoker Smokeless Tobacco: Never Used Alcohol Use Standard Drinks/Week Comments No 0 (1 standard drink = 0.6 oz pure alcoho l) Sex Assigned at Date Recorded Not on file documented as of this encounter Last Filed Vital Signs Vital Sign Reading Time Taken Comments Blood Pressure 134/60 10/15/2014 8:43 AM EDT Pulse 66 10/15/2014 8:43 AM EDT Temperature 36.7 ??C (98 ??F) 10/15/2014 8:43 AM EDT Respiratory Rate - - Oxygen Saturation 100% 10/15/2014 8:43 AM EDT Inhaled Oxygen Concentration - - Weight 108.9 kg (240 lb) 10/15/2014 8:43 AM EDT Height 174 cm (5' 8.5) 10/15/2014 8:43 AM EDT Body Mass Index 35.96 10/15/2014 8:43 AM EDT documented in this encounter Progress Notes Akash Prieto MD - 10/15/2014 9:24 AM EDT This is a followup appointment on Bucky Acevedo. date is 1960. 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 He recently completed four weeks of 375 mg/meter squared rituximab, and this is a one month followup from his last infusion. In the interim, his weakness has actually gotten worse. He has had one fall. The fall was against concrete. He injured both his face and his legs. They initially were treated conservatively and looked okay but then subsequently got infected, and now he has mild cellulitis. On Saturday, he was placed on Keflex 500 mg four times a day, and he had partial response. Last day will be day 7 on Saturday, and because he is still having significant erythema and tenderness with an eschar at the abrasion site, I gave him a followup dicloxacillin. We made no other alterations in his medications, and he remains on insulin, tramadol, atenolol, and omeprazole. He also takes indomethacin 25 twice a day and lisinopril/hydrochlorothiazide 20/12.5 once a day. On exam, he is in no acute distress. His blood pressure is 134/60; his pulse is 66; his pulse ox is 100; his temp is 98; and his weight is 240, it is up 10 pounds. His musculoskeletal exam is notable for profound weakness both distally and proximally. He cannot lift his legs against gravity and before he could. My assessment is that rituximab has not been successful, but I want to wait and see what the CK levels do. If they do not fall, and his weakness is worse, then I am going to call [facility] and find out what they do with statin myopathy rituximab failures. I did prescribe dicloxacillin to follow up the Keflex if his wounds do not look better by Saturday. I will follow up. CK unchanged >3500 Will seek another opinion regarding additional therapy documented in this encounter Miscellaneous Notes Addendum Note - Zana Martinez - 10/15/2014 9:53 AM EDT Addended by: ZANA MARTINEZ on: 10/15/2014 09:53 AM Modules accepted: Orders documented in this encounter Plan of Treatment Upcoming Encounters Date Type Specialty Care Team Description 06/19/2022 Office Visit Rheumatology Richi Blackmon MD [facility] RHEUMATOLOGY [place] [address] (Wo rk) Scheduled Procedures Name Priority Associated Diagnoses Date/Time EGD, UPPER GI ENDOSCOPY Family hx of colon cance r COLONOSCOPY, DIAGNOSTIC Family hx of colon cance r documented as of this encounter Procedures Procedure Name Priority Date/Time Associated Diagnosis Comme nts CK Routine 10/15/2014 9:43 AM Myopathy Results f or this EDT procedure are i n the results section . documented in this encounter Results (ABNORMAL) CK (10/15/2014 9:43 AM EDT) athologist Signature CK, Total 3,778 (H) 0 - 200 CERNER unit/L MILLENNIUM Comment: result rechecked, blr Specimen Anatomical Collection Method Collection Time Receive d Time (Source) Location / / Volume Laterality Blood specimen 10/15/2014 9:43 AM 015 (specimen) EDT 10:01 AM EDT Resulting Agency Comment Spec In Lab Akash Prieto MD CHEMISTRY ORDERABLES Performing Organization Address City/State/ZIP [place] [address] CERNER MILLENNIUM documented in this encounter Visit Diagnoses Diagnosis Myopathy Myopathy, unspecified documented in this encounter Care Teams Group Cio Relationship Specialty Start Date End Date Jazmine Baer MD PCP - General 11/07/10 [address] [place] [address] documented as of this encounter
--- OUTSIDE RECORDS SUMMARY | 2022-04-11 10:54 | XMS_ITS | Encounter Summary ---
:1960 Author Organization [facility] [place] [address] Care Team Providers Name Role Phone Jazmine Baer MD Primary Care Provider Encounter Details Date Type Department Care Team Description 09/09/2014 Follow-Up Physical Therapy at [facility], DR JH Bunch; [facility] Ana Malik MD [facility] [place] [address] [place] [address] Mingo Taylor, PT [facility] PHYSICAL MEDICINE & [place] [address] Social History Tobacco Use Types Packs/Day Years [...] encounter Progress Notes Mingo Taylor, PT - 09/09/2014 12:48 PM EDT Physical Therapy Progress Note Total Timed [...] 7 8 9 10 08/25/14 09/01/14 09/09/14 S: Patient reports doing ok. No significant change in strength. Pt reports doing sit to stand, can have back pain when trying to straighten up. Feels like back pain is getting worse. O: Therex: Strength/Endurance/ROM (93203) 45 min 1. Amb 6x40 feet, 2x with rollator, 2. Sidestepping, Bx10 feet, 4 reps with cues to maintain IR of hip to promote strengthening of hip abductors 3. Standing hip abduction, Bx10, 2 reps with cues to bring LE back on a diagonal (ADDED TO HEP) 4. Seated twist, Bx30 sec, 2 reps with cues to hold 30 sec, improved back pain 5. Sit backs on mat x 10 (ADDED TO HEP) 6. Chair dips x 5 (ADDED TO HEP) A: Pt demonstrating greater difficulty today with sit to stand transfer, particularly at end of session. Pt appears reluctant to sit as he is concerned he won't be able to rise again. Continues to havesignificant proximal weakness with trunk weakness making it particularly difficult to go into extension during transfer. Will see him for one more visit and will focus on functional exercises as well as continued stretching to manage back pain. Pt to receive lift chair fully from [employer] donation. FUNCTIONAL GOALS: Therapy Short Term Goals - NA as pt only to be seen for ~4 visits Therapy Validation Technician Goals - 6 weeks, 10/07/14 1. (I) [...] Home Exercise Program and Balanceand Gait Training, Review HEP, add rotation trunk exercise Mingo Taylor, NIYAH [facility] Outpatient Rehabilitation Department documented in this encounter Plan of Treatment Upcoming Encounters Date Type Specialty Care Team Description 06/19/2022 Office Visit Rheumatology Richi Blackmon MD [facility] DR RHEUMATOLOGY [place], [place] [address] (Wo rk) Scheduled Procedures Name Priority Associated Diagnoses Date/Time EGD, UPPER GI ENDOSCOPY Family hx of colon cance r COLONOSCOPY, DIAGNOSTIC Family hx of colon cance r documented as of this encounter Visit Diagnoses Diagnosis Imbalance Abnormality of gait Myopathy Myopathy, unspecified documented in this encounter Care Teams Relief Charge Nurse Relationship Specialty Start Date End Date Jazmine Baer MD PCP - General 11/07/10 [address] [place] [address] documented as of this encounter
--- OUTSIDE RECORDS SUMMARY | 2022-04-11 10:54 | XMS_ITS | Encounter Summary ---
:1960 Author Organization [facility] [place] [address] Care Team Providers Name Role Phone Jazmine Baer MD Primary Care Provider Encounter Details Date Type Department Care Team Description 07/18/2015 Office Visit Neurology at [facility] Henrry Gleason, [place] [address] NEUROLOGY DEPT. [place], [place] [address] Social History Tobacco Use Types Packs/Day Years Used Date Never Smoker Smokeless Tobacco: Never Used Alcohol Use Standard Drinks/Week Comments No 0 (1 standard drink = 0.6 oz pure alcoho l) Sex Assigned at Date Recorded Not on file documented as of this encounter Last Filed Vital Signs Vital Sign Reading Time Taken Comments Blood Pressure 177/68 07/18/2015 11:11 AM EST Pulse 68 07/18/2015 11:11 AM EST Temperature - - Respiratory Rate - - Oxygen Saturation - - Inhaled Oxygen Concentration - - Weight 124.2 kg (273 lb 12.8 oz) 07/18/2015 11:11 AM EST Height 175.3 cm (5' 9) 07/18/2015 11:11 AM EST Body Mass Index 40.43 07/18/2015 11:11 AM EST documented in this encounter Progress Notes Henrry Gleason MD - 07/18/2015 11:43 AM EST Expand All Collapse All 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 Dose of IV steroids last month. His CPK iscreeping down and is presently in the 300's. Because it had creeped up slightly, Dr. Prieto has increased the dose of IVIG slightly.?? He is now walking with a walker. He is a heavy man at 275 pounds. Trying to do some walking, but no PT at present. He denies any bowel or bladder dysfunction or any shortness of breath or chest pain. Some leg swelling which is getting better with walking. On exam CN'2 2-12 OK. Arms are full strength now. He has 3+/5 weakness in the iliopsoas and quads bilaterally and near normal strength distally in his lower extremities. The knee flexors may be slightly weak as well. He is areflexic. His sensory exam is normal. He has no major atrophy of his muscles. He is walking with a walker. Treatment as per Dr. Prieto. He is definitely making progress and reasonably stable. He needs to lose weight. Serial CK's being checked. Will followup with him in 3 mos. documented in this encounter Plan of Treatment Upcoming Encounters Date Type Specialty Care Team Description 06/19/2022 Office Visit Rheumatology Richi Blackmon MD [facility] DR RHEUMATOLOGY [place], [place] [address] (Wo rk) Scheduled Procedures Name Priority Associated Diagnoses Date/Time EGD, UPPER GI ENDOSCOPY Family hx of colon cance r COLONOSCOPY, DIAGNOSTIC Family hx of colon cance r documented as of this encounter Visit Diagnoses Diagnosis Necrotizing myopathy Other myopathies documented in this encounter Care Teams Cut Off Operator Scorer Relationship Specialty Start Date End Date Jazmine Baer MD PCP - General 11/07/10 [address] [place], [place] [id number] documented as of this encounter
--- OUTSIDE RECORDS SUMMARY | 2022-04-11 10:54 | XMS_ITS | Encounter Summary ---
:1960 Author Organization [facility] [place] [address] Care Team Providers Name Role Phone Jazmine Baer MD Primary Care Provider Encounter Details Date Type Department Care Team Description 08/25/2014 Hospital Encounter Hematology and INFUSION THER APY, MEDS None Myopathy; Oncology at [facility] [place] Ana Zamora MD [facility] [place] [address] 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 [id number] Social History Tobacco Use Types Packs/Day Years [...] Sign Reading Time Taken Comments Blood Pressure 130/68 08/25/2014 2:17 PM EDT Pulse 68 08/25/2014 2:17 PM EDT Temperature 36.9 ??C (98.4 ??F) 08/25/2014 2:17 PM EDT Respiratory Rate 18 08/25/2014 2:17 PM EDT Oxygen Saturation 100% 08/25/2014 2:17 PM EDT Inhaled Oxygen Concentration - - Weight - - Height - - Body Mass Index - - documented in this encounter Medications at Time of Discharge Medication Sig Dispensed Refills Start Date End Date multivitamin Capsule Take 1 capsule by mouth 0 daily. insulin glargine Inject 25 Units 10 mL 12 07/13/201412/2015 (LANTUS) Solution subcutaneously nightly. insulin lispro Inject 2-4 Units 10 mL 12 07/13/201412/2015 (HUMALOG) Solution subcutaneously 3 times daily (with meals). enoxaparin (LOVENOX) Inject 0.4 mLs 20 Syringe 3 07/13/2014 09/15/2014 40 mg/0.4 mL Syringe subcutaneously daily. Administer this one day prior, the days of, and the day after your IVIG infusions. omeprazole (PRILOSEC) Take 1 capsule by mouth [...] mouth 0 10/13/2015 100 mg tablet daily. traMADol (ULTRAM) 50 Take 100 mg by mouth 2 0 01/14/2015 mg tablet times daily. documented as of this encounter Progress Notes Gael Iyer RN - 08/25/2014 2:33 PM EDT Patient Name: Bucky Acevedo Patient Age: 54 y.o. Birthdate: 1960 Admit date: 08/25/2014 Attending Physician: Infusion Therapy, Meds TIME TREATMENT STARTED: 1110 TIME TREATMENT ENDED: 1415 Bucky Acevedo, 54 y.o. male with diagnosis of myopathy is here for chemotherapy infusion of rapidrituxan. S: Pt. offers no complaints at this time. O: Chemotherapy orders independently verified for correct drug name, route and dosage per patient's height, weight and BSA by Gael Iyer RN and onsite pharmacist REACTIONS (DESCRIPTION, TIME, INTERVENTION AND EFFECTIVENESS) none A: Pt. Tolerated treatment well. Bucky Acevedo confirms that all questions and issues have been addressed. P: Return to clinic per routine. documented in this encounter Plan of Treatment Upcoming Encounters Date Type Specialty Care Team Description 06/19/2022 Office Visit Rheumatology Richi Blackmon MD [facility] DR RHEUMATOLOGY [place], [place] [address] (Wo rk) Scheduled Procedures Name Priority Associated Diagnoses Date/Time EGD, UPPER GI ENDOSCOPY Family hx of colon cance r COLONOSCOPY, DIAGNOSTIC Family hx of colon cance r documented as of this encounter Procedures Procedure Name Priority Date/Time Associated Comments Diagnosis LIVER/KIDNEY MICROSOME Routine 08/25/2014 11:45 Liver cirrhosi s Results for this TYPE 1 ANTIBODY AM EDT secondary to HORTON procedu re are in the results section. HEMOGRAM Routine 08/25/2014 11:45 Myopathy Results for this AM EDT procedure are i n the results section. DIFFERENTIAL, Routine 08/25/2014 11:45 Myopathy Results fo r this AUTOMATED AM EDT procedure are i n the results section. MITOCHONDRIAL Routine 08/25/2014 11:45 Liver cirrhosis Results for this ANTIBODY, M2 AM EDT secondary to HORTON procedure are in the results section. SMOOTH MUSCLE ANTIBODY Routine 08/25/2014 11:45 Liver cirrhosi s Results for this AM EDT secondary to HORTON procedure are in the results section. CBC (WITH DIFF) Routine 08/25/2014 11:45 Myopathy AM EDT KIRTI ANTIBODY SCREEN Routine 08/25/2014 11:45 Liver cirrhosis R esults for this AM EDT secondary to HORTON procedure are in the results section. IGA Routine 08/25/2014 11:45 Liver cirrhosis Results for this AM EDT secondary to HORTON procedure are in the results section. IGM Routine 08/25/2014 11:45 Liver cirrhosis Results for this AM EDT secondary to HORTON procedure are in the results section. IGG Routine 08/25/2014 11:45 Liver cirrhosis Results for this AM EDT secondary to HOROTN procedure are in the results section. CK Routine 08/25/2014 11:45 Myopathy Results for this AM EDT procedure are i n the results section. COMPREHENSIVE Routine 08/25/2014 11:45 Myopathy Results fo r this METABOLIC PANEL AM EDT procedure ar e in (NON-FASTING) the results section. documented in this encounter Results Liver/Kidney Microsome Type 1 Antibody (08/25/2014 11:45 AM EDT) athologist Signature Stacy/Kid Mirco1 <5.0 <=20.0 CERNER (Negative) MILLENNIUM U Comment: Test Performed by: [place] [address] Claims Counsel: Yony Blue II, M.D., Ph.D. Specimen Anatomical Collection Method Collection Time Receive d Time (Source) Location / / Volume Laterality Blood specimen 08/25/2014 11:45 5 3:33 (specimen) AM EDT PM EDT Resulting Agency Comment Spec In Lab Anastasia Mccauley MD IMMUNOLOGY ORDERABLES Performing Organization Address City/[facility]/[place] [address] CERNER MILLENNIUM IgM (08/25/2014 11:45 AM EDT) athologist Signature IgM 106 40 - 230 CERNER mg/dL MILLENNIUM Specimen Anatomical Collection Method Collection Time Receive d Time (Source) Location / / Volume Laterality Blood specimen 08/25/2014 11:45 5 (specimen) AM EDT 11:54 AM EDT Resulting Agency Comment Spec In Lab Anastasia Mccauley MD IMMUNOLOGY ORDERABLES Performing Organization Address City/[facility]/ZIP Code Phon e Number [address] CERNER MILLENNIUM (ABNORMAL) IgA (08/25/2014 11:45 AM EDT) athologist Signature IgA 447 (H) 70 - 400 CERNER mg/dL MILLENNIUM Specimen Anatomical Collection Method Collection Time Receive d Time (Source) Location / / Volume Laterality Blood specimen 08/25/2014 11:45 5 (specimen) AM EDT 11:54 AM EDT Resulting Agency Comment Spec In Lab Anastasia Mccauley MD IMMUNOLOGY ORDERABLES Performing Organization Address City/[facility]/ZIP Code Phon e Number [address] CERNER MILLENNIUM (ABNORMAL) IgG (08/25/2014 11:45 AM EDT) athologist Signature IgG 1,720 (H) 700 - CERNER 1,600 MILLENNIUM mg/dL Specimen Anatomical Collection Method Collection Time Receive d Time (Source) Location / / Volume Laterality Blood specimen 08/25/2014 11:45 5 (specimen) AM EDT 11:54 AM EDT Resulting Agency Comment Spec In Lab Anastasia Mccauley MD IMMUNOLOGY ORDERABLES Performing Organization Address City/[facility]/ZIP Code Phon e Number [address] CERNER MILLENNIUM Smooth Muscle Antibody (08/25/2014 11:45 AM EDT) athologist Signature Sm Muscle Ab Negative Negative CERNER MILLENNIUM Comment: Test Performed by: [facility] [place] [address] Claims Counsel: Yony Blue II, M.D., Ph.D. Specimen Anatomical Collection Method Collection Time Receive d Time (Source) Location / / Volume Laterality Blood specimen 08/25/2014 11:45 5 3:33 (specimen) AM EDT PM EDT Resulting Agency Comment Spec In Lab Anastasia Mccauley MD IMMUNOLOGY ORDERABLES Performing Organization Address City/[facility]/ZIP Code Phon e Number [address] CERNER MILLENNIUM Mitochondrial Antibody, M2 (08/25/2014 11:45 AM EDT) athologist Signature Mitochon Ab <0.1 <0.1 CERNER (Negative) MILLENNIUM U Comment: Test Performed by: [place] [address] Claims Counsel: Yony Blue II, M.D., Ph.D. Specimen Anatomical Collection Method Collection Time Receive d Time (Source) Location / / Volume Laterality Blood specimen 08/25/2014 11:45 5 3:33 (specimen) AM EDT PM EDT Resulting Agency Comment Spec In Lab Anastasia Mccauley MD IMMUNOLOGY ORDERABLES Performing Organization Address City/[facility]/ZIP Code Phon e Number [address] CERNER MILLENNIUM KIRTI (08/25/2014 11:45 AM EDT) P athologist Signature KIRTI Neg Neg CERNER MILLENNIUM Specimen Anatomical Collection Method Collection Time Receive d Time (Source) Location / / Volume Laterality Blood specimen 08/25/2014 11:45 5 8:04 (specimen) AM EDT AM EDT Resulting Agency Comment Spec In Lab Anastasia Mccauley MD IMMUNOLOGY ORDERABLES Performing Organization Address City/[facility]/ZIP [facility] Phon e Number [address] CERNER MILLENNIUM Differential, Automated (08/25/2014 11:45 AM EDT) P athologist Signature Neutrophils % 67.2 % CERNER MILLENNIUM Neutr Abs (ANC) 3.93 1.50 - CERNER 6.30 MILLENNIUM x10(3)/mcL Lymphocytes % 18.0 % CERNER MILLENNIUM Lymphocytes Abs 1.0 1.0 - 3.6 CERNER x10(3)/mcL MILLENNIUM Monocytes % 10.3 % CERNER MILLENNIUM Monocyte Abs 0.6 0.2 - 1.0 CERNER x10(3)/mcL MILLENNIUM Eosinophils % 3.8 % CERNER MILLENNIUM Eosinophils Abs 0.2 0.0 - 0.5 CERNER x10(3)/mcL MILLENNIUM Basophils % 0.7 % CERNER MILLENNIUM Basophils Abs 0.0 0.0 [...] Organization Address City/State/Z[place] [address] CERNER MILLENNIUM (ABNORMAL) Hemogram (08/25/2014 11:45 AM EDT) P athologist Signature WBC 5.8 4.0 - 10.0 CERNER x10(3)/mcL MILLENNIUM RBC 3.72 (L) 4.63 - CERNER 6.08 MILLENNIUM x10(6)/mcL Hemoglobin 11.3 (L) 13.7 - CERNER 17.5 gm/dL MILLENNIUM Hematocrit 34.1 (L) 40.0 - CERNER 51.0 % MILLENNIUM MCV 91.7 79.0 - CERNER 92.0 fL MILLENNIUM MCH 30.4 25.6 - CERNER 32.2 pg MILLENNIUM MCHC 33.1 32.0 - CERNER 36.5 gm/dL MILLENNIUM Platelets 187 145 - 370 CERNER x10(3)/mcL MILLENNIUM RDWSD 56.4 (H) 35.0 - CERNER 46.0 fL MILLENNIUM RDWCV 16.9 (H) 10.9 - CERNER 14.4 % MILLENNIUM MPV 10.6 9.0 - 12.0 CERNER fL MILLENNIUM Specimen Anatomical Collection Method Collection Time Receive d Time (Source) Location / / Volume Laterality Blood specimen 08/25/2014 11:45 5 (specimen) AM EDT 11:54 AM EDT Resulting Agency Comment Spec In Lab Ana Zamora MD HEMATOLOGY ORDERABLES Performing Organization Address City/[facility]/ZIP Code Phon e Number [address] CERNER MILLENNIUM (ABNORMAL) CK [...] Organization Address City/State/ZIP Code Phon e Number [address] CERNER MILLENNIUM (ABNORMAL) Comprehensive [...] intervals supplied above were not validated at [facility] [place]. Results from pediatri c patients should be [...] Total Bilirubin 0.3 0.2 - 1.3 mg/dL KATHYNER M ILLENNIUM Bili, Direct 0.1 0.0 - [...] the following links into your internet browser. 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 chronic nonalcoholic liver disease documented in this encounter Administered Medications Inactive Administered Medications - up to 3 most recent administrations Medication Order MAR Action Action Date Dose Rate Site acetaminophen (TYLENOL) tablet Given 08/25/2014 12:00 PM EDT 650 mg 650 mg 650 mg, Oral, ONCE, 1 dose, On Sat08/25/14 at 1145, Upon arrival prior to rituximab., Routine dexamethasone (DECADRON) injection 10 mg Given 08/25/2014 12:03 PM EDT 10 mg 10 mg, Intravenous, ONCE, 1 dose, On Sat08/25/14 at 1145, Before Rituximab dexamethasone (DECADRON) injection 10 mg Given 08/25/2014 12:04 PM EDT 10 mg 10 mg, Intravenous, ONCE PRN, Starting on Sat08/25/14 at 1124, Until Raiza 08/26/14 at 0244, infusion reaction, For use only after hypersensitivity order set found to be ineffective. diphenhydrAMINE (BENADRYL) injection 50 mg Given 08/25/2014 12:07 PM EDT 50 mg 50 mg, Intravenous, ONCE, 1 dose, On Sat08/25/14 at 1230, Upon arrival prior to rituximab., Routine riTUXimab (RITUXAN) 800 mg in sodium New Bag 08/25/2014 12:40 PM E DT 800 mg chloride 0.9% 400 mL infusion 800 mg, Intravenous, ONCE, 1 dose, On Sat08/25/14 at 1145, Administer intravenously at an initial rate of 50 mg/hour. If no hypersensitivity or infusion-related events occur, increase infusion rate in 50 mg/hour increments every 30 minutes, to a maximum of 400 mg/hour. If hypersensitivity or an infusion-related event develops, the infusion should be temporarily slowed or interrupted. Upon improvement of the patient's symptoms, the infusion can be continued at one-half the previous rate., Indication: Statin-induced autoimmune myopathy documented in this encounter Care Teams Char Belt Operator Relationship Specialty Start Date End Date Jazmine Baer MD PCP - General 11/07/10 [address] [place] [address] documented as of this encounter
--- OUTSIDE RECORDS SUMMARY | 2022-04-11 10:54 | XMS_ITS | Encounter Summary ---
:1960 Author Organization [facility] [place] [address] Care Team Providers Name Role Phone Jazmine Baer MD Primary Care Provider Reason for Visit Reason Onset Date Comments Other 12/09/2014 infusion Encounter Details Date Type Department Care Team Description 12/09/2014 Telephone [place] [facility] [place]gozi Hansen, Other (infusion) [facility] [place] [address] Social History Tobacco Use Types Packs/Day Years Used Date Never Smoker Smokeless Tobacco: Never Used Alcohol Use Standard Drinks/Week Comments No 0 (1 standard drink = 0.6 oz pure alcoho l) Sex Assigned at Date Recorded Not on file documented as of this encounter Miscellaneous Notes Telephone Encounter - Ngozi Hansen RN - 12/09/2014 1:35 PM EDT Bucky called to find out what is going on with his infusions at [facility]. Relayed Dr. Prieto's message from earlier today. Bucky verbalized understanding. He then called [facility], who told him he was set up for infusions on 12/24 and 12/25. That is when he called back here and said he only received half of his dosing at the last infusion. He has gotten considerably weaker. He says it requires three people toget him out of bed or off the toilet. He would like to get the balance of IVIG that he missed. documented in this encounter Plan of Treatment Upcoming Encounters Date Type Specialty Care Team Description 06/19/2022 Office Visit Rheumatology Richi Blackmon MD [facility] DR RHEUMATOLOGY [place], [place] [address] (Wo rk) Scheduled Procedures Name Priority Associated Diagnoses Date/Time EGD, UPPER GI ENDOSCOPY Family hx of colon cance r COLONOSCOPY, DIAGNOSTIC Family hx of colon cance r documented as of this encounter Visit Diagnoses Not on filedocumented in this encounter Care Teams Telecom Coordinator Relationship Specialty Start Date End Date Jazmine Baer MD PCP - General 11/07/10 [address] [place] [address] documented as of this encounter
--- OUTSIDE RECORDS SUMMARY | 2022-04-11 10:54 | XMS_ITS | Encounter Summary ---
:1960 Author Organization [facility] [place] [address] Care Team Providers Name Role Phone Jazmine Baer MD Primary Care Provider Encounter Details Date Type Department Care Team Description 08/25/2014 Orders Only [place]rology [place] [facility] Ruperto Mcclellan MD [facility] [place] [address] NEUROLOGY DEPT [phone] [place], [place] [address] (Wo rk) Social History Tobacco [...] Blackmon MD [facility] RHEUMATOLOGY DEP T [place], [place] [address] (Wo rk) Scheduled Procedures Name Priority Associated Diagnoses Date/Time EGD, UPPER GI ENDOSCOPY Family hx of colon cance r COLONOSCOPY, DIAGNOSTIC Family hx of colon cance r documented as of this encounter Visit Diagnoses Diagnosis Myopathy Myopathy, unspecified documented in this encounter Care Teams Geographic Area Intelligence Officer Relationship Specialty Start Date End Date Jazmine Baer MD PCP - General 11/07/10 [address] [place] [address] documented as of this encounter
--- OUTSIDE RECORDS SUMMARY | 2022-04-11 10:54 | XMS_ITS | Encounter Summary ---
:1960 Author Organization [facility] [place] [address] Care Team Providers Name Role Phone Jazmine Baer MD Primary Care Provider Encounter Details Date Type Department Care Team Description 01/14/2015 Hospital Encounter Laboratory Ana Zamora MD [facility] [place] [address] NEUROLOGY DEPT. [phone] [place] [address] (Wo rk) Social History Tobacco Use Types [...] Rheumatology Richi Blackmon MD [facility] ER DR RHEUMATOLOGY [place], [place] [address] (Wo rk) Scheduled Procedures Name Priority Associated Diagnoses Date/Time EGD, UPPER GI ENDOSCOPY Family hx of colon cance r COLONOSCOPY, DIAGNOSTIC Family hx of colon cance r documented as of this encounter Procedures Procedure Name Priority Date/Time Associated Comments Diagnosis CD19 Routine 01/14/2015 11:12 Myopathy Results for this AM EDT procedure are i n the results section. HEMOGRAM Routine 01/14/2015 11:12 Myopathy Results for this AM EDT procedure are i n the results section. DIFFERENTIAL, Routine 01/14/2015 11:12 Myopathy Results fo r this AUTOMATED AM EDT procedure are i n the results section. CBC (WITH DIFF) Routine 01/14/2015 11:12 Myopathy AM EDT COMPREHENSIVE Routine 01/14/2015 11:12 Myopathy Results fo r this METABOLIC PANEL AM EDT procedure ar e in (NON-FASTING) the results section. documented in this encounter Results Differential, Automated (01/14/2015 11:12 AM EDT) P athologist Signature Neutrophils % 64.3 % CERNER MILLENNIUM Neutr Abs (ANC) 3.74 1.50 - CERNER 6.30 MILLENNIUM x10(3)/mcL Lymphocytes % 21.6 % CERNER MILLENNIUM Lymphocytes Abs 1.3 1.0 - 3.6 CERNER x10(3)/mcL MILLENNIUM Monocytes % 7.2 % CERNER MILLENNIUM Monocyte Abs 0.4 0.2 - 1.0 CERNER x10(3)/mcL MILLENNIUM Eosinophils % 5.3 % CERNER MILLENNIUM Eosinophils Abs 0.3 0.0 - 0.5 CERNER x10(3)/mcL MILLENNIUM Basophils % 1.4 % CERNER MILLENNIUM Basophils Abs 0.1 0.0 - 0.2 CERNER x10(3)/mcL MILLENNIUM Immature [...] Organization Address City/State/ZIP Code Phon e Number [place] [phone] CERNER MILLENNIUM (ABNORMAL) Hemogram (01/14/2015 11:12 AM EDT) P athologist Signature WBC 5.8 4.0 - 10.0 CERNER x10(3)/mcL MILLENNIUM RBC 4.15 (L) 4.63 - CERNER 6.08 MILLENNIUM x10(6)/mcL Hemoglobin 12.4 (L) 13.7 - CERNER 17.5 gm/dL MILLENNIUM Hematocrit 36.8 (L) 40.0 - CERNER 51.0 % MILLENNIUM MCV 88.7 79.0 - CERNER 92.0 fL MILLENNIUM MCH 29.9 25.6 - CERNER 32.2 pg MILLENNIUM MCHC 33.7 32.0 - CERNER 36.5 gm/dL MILLENNIUM Platelets 143 (L) 145 - 370 CERNER x10(3)/mcL MILLENNIUM RDWSD 53.2 (H) 35.0 - CERNER 46.0 fL MILLENNIUM RDWCV 16.5 (H) 10.9 - CERNER 14.4 % MILLENNIUM MPV 11.5 9.0 - 12.0 CERNER fL MILLENNIUM Specimen Anatomical Collection Method Collection Time Receive d Time (Source) Location / / Volume Laterality Blood specimen 01/14/2015 11:12 5 (specimen) AM EDT 11:29 AM EDT Resulting Agency Comment Spec In Lab Ana Zamora MD HEMATOLOGY ORDERABLES Performing Organization Address City/[facility] [place] [address] CERNER MILLENNIUM (ABNORMAL) CD19 (01/14/2015 11:12 AM EDT) athologist Signature CD19% <1 (L) 6 - 23 % CERNER MILLENNIUM CD19 ABS 1 (L) 99 - 473 CERNER /mcl MILLENNIUM Comment: This assay is a dual platform determin ation. ??The PERCENTAGE of lymphocytes bearing the CD19 is determined using bandar w cytometry immunophenotyping. ??The ABSOULTE COUNT of [id number] is de termined by multiplying the percentages [...] Zamora MD HEMATOLOGY ORDERABLES Performing Organization Address City/[facility] [place] [address] CERNER MILLENNIUM (ABNORMAL) Comprehensive metabolic panel (non-fasting) (01/14/2015 11:12 AM EDT) P athologist Signature Glucose Lvl 116 65 - 199 CERNER mg/dL MILLENNIUM Comment: Diabetes: >=200 mg/dL plus symp toms BUN 24 (H) 10 - 20 mg/dL CERNER MILLENNIU M Creatinine 0.77 (L) 0.80 - 1.50 mg/dL CERNER MILL ENNIUM Comment: Please note that the pediatric reference intervals supplied above were not validated [place] [facility]. Results from pediatri c patients should be interpreted in conjunction to the patient's age, height and muscle mass. Sodium 140 135 - 145 mmol/L CERNER ELISE NIUM Potassium 4.3 3.5 - 5.0 mmol/L CERNER ELISE NIUM Comment: Please note: ??Patients with WBC >100,00 0 may have falsely elevated Potassium levels. ??For accurate Potassium quantif ication in these patients send serum separator tube (gold top) for subsequent determinations. ??Contact the Clinical Chemistry Laboratory if there are any qu estions. Chloride 104 98 - 107 mmol/L CERNER MILLENN IUM CO2 20 (L) 22 - 31 mmol/L CERNER MILLENNI UM Anion Gap 16 (H) 5 - 15 mmol/L CERNER MILLENNIU M Calcium 9.8 8.5 - 10.5 mg/dL CERNER ELISE NIUM Total Protein 8.8 (H) 6.1 - 8.0 gm/dL CERNER MIL LENNIUM Albumin 3.9 3.2 - 5.2 gm/dL CERNER MILLENN IUM AST 95 (H) 0 - 39 unit/L CERNER MILLENNIU M ALT 121 (H) 0 - 55 unit/L CERNER MILLENNIU M Alk Phos 115 40 - 120 unit/L CERNER MILLENN IUM Total Bilirubin 0.5 0.2 - 1.3 mg/dL CERNER M ILLENNIUM [...] the following links into your internet browser. [email or web address]/DHnkdep [email or web address]/DHMCnkf Specimen Anatomical Collection Method Collection Time Receive d Time (Source) Location / / Volume Laterality Blood specimen 01/14/2015 11:12 5 (specimen) AM EDT 11:29 AM EDT Resulting Agency Comment Spec In Lab Ana Zamora MD CHEMISTRY ORDERABLES Performing Organization Address City/State/ZIP Code Phon e Number [address] LABORATORY [facility] documented in this encounter Visit Diagnoses Diagnosis Myopathy Myopathy, unspecified documented in this encounter Care Teams Manager Fund Relationship Specialty Start Date End Date Jazmine Baer MD PCP - General 11/07/10 [address] [place] [address] documented as of this encounter
--- OUTSIDE RECORDS SUMMARY | 2022-04-11 10:54 | XMS_ITS | Encounter Summary ---
:1960 Author Organization [facility] [place] [address] Care Team Providers Name Role Phone Jazmine Baer MD Primary Care Provider Reason for Visit Reason Comments Follow-up Encounter Details Date Type Department Care Team Description 03/25/2015 Office Visit [place] [facility] Akash Prieto MD [facility] [place] [address] RHEUMATOLOGY DEPT. [phone] [place] [id number] (Wo rk) Social History Tobacco Use Types Packs/Day Years Used Date Never Smoker Smokeless Tobacco: Never Used Alcohol Use Standard Drinks/Week Comments No 0 (1 standard drink = 0.6 oz pure alcoho l) Sex Assigned at Date Recorded Not on file documented as of this encounter Last Filed Vital Signs Vital Sign Reading Time Taken Comments Blood Pressure 159/62 03/25/2015 1:22 PM EDT Pulse 66 03/25/2015 1:22 PM EDT Temperature 36.4 ??C (97.5 ??F) 03/25/2015 1:22 PM EDT Respiratory Rate - - Oxygen Saturation 100% 03/25/2015 1:22 PM EDT Inhaled Oxygen Concentration - - Weight 114.3 kg (252 lb) 03/25/2015 1:22 PM EDT Height 175.3 cm (5' 9) 03/25/2015 1:22 PM EDT Body Mass Index 37.21 03/25/2015 1:22 PM EDT documented in this encounter Progress Notes kAash Prieto MD - 03/25/2015 2:33 PM EDT The patient is a 54-year-old male 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 In any case, his disease has dramatically improved so that he was so weak that he could not get out of the wheelchair and on my last exam he could not lift his leg against gravity, today he was lifting his leg against gravity. He was not in a wheelchair. He was using a walker. He can get in and out of his car and he can do some ADLs. His CK has gone down from 2394 to 316. Interestingly, his sed rate remains very high. It was 86, 96, and 93 and I am not sure if that is related to the IVIG or whether that is ongoing inflammation, but I asked that he repeat them and CRP at the same time because that should clarify that Issue. I also today started him on Lasix because he is about 10 pounds up and has 3+ pitting edema in his lower extremity. We will do BMP next week to make sure he is not potassium depleted and I will follow up in three months. Lastly, I talked him a little bit about starting tacrolimus and I am not sure if we are going to do that, but I thought I would give him an opportunity to read up on it. documented in this encounter Plan of Treatment Upcoming Encounters Date Type Specialty Care Team Description 06/19/2022 Office Visit Rheumatology Richi Blackmon MD [facility] [address] RHEUMATOLOGY [place], [place] [address] (Wo rk) Scheduled Procedures Name Priority Associated Diagnoses Date/Time EGD, UPPER GI ENDOSCOPY Family hx of colon cance r COLONOSCOPY, DIAGNOSTIC Family hx of colon cance r documented as of this encounter Visit Diagnoses Diagnosis Myopathy Myopathy, unspecified documented in this encounter Care Teams Casting Finisher Relationship Specialty Start Date End Date Jazmine Baer MD PCP - General 11/07/10 [address] [place] [address] documented as of this encounter
--- OUTSIDE RECORDS SUMMARY | 2022-04-11 10:54 | XMS_ITS | Encounter Summary ---
:1960 Author Organization [facility] [place] [address] Care Team Providers Name Role Phone Jazmine Baer MD Primary Care Provider Encounter Details Date Type Department Care Team Description 05/20/2015 Orders Only Gastroenterology at [facility] Glenna Mendoza, [facility] [place] [address] Social History Tobacco Use Types Packs/Day Years [...] Blackmon MD [facility] DR RHEUMATOLOGY [place], [place] [address] (Wo rk) Scheduled Procedures Name Priority Associated Diagnoses Date/Time EGD, UPPER GI ENDOSCOPY Family hx of colon cance r COLONOSCOPY, DIAGNOSTIC Family hx of colon cance r documented as of this encounter Visit Diagnoses Not on filedocumented in this encounter Care Teams Certified Genetic Counselor Relationship Specialty Start Date End Date Jazmine Baer MD PCP - General 11/07/10 [address] [place] [address] documented as of this encounter
--- OUTSIDE RECORDS SUMMARY | 2022-04-11 10:54 | XMS_ITS | Encounter Summary ---
:1960 Author Organization [place] [place] [address] Care Team Providers Name Role Phone Jazmine Baer MD Primary Care Provider Reason for Visit Reason Comments Chemotherapy autoimmune myopathy: oleg r berenice Encounter Details Date Type Department Care Team Description 09/01/2014 Hospital Encounter Hematology and INFUS[facility], MEDS None Myopathy (Primary Oncology at [facility] Ana Zamora MD [facility] [place] [address] Dx) [place] [id number] Social History Tobacco Use Types Packs/Day Years [...] Sign Reading Time Taken Comments Blood Pressure 134/67 09/01/2014 2:07 PM EDT Pulse 68 09/01/2014 2:07 PM EDT Temperature 36.8 ??C (98.2 ??F) 09/01/2014 2:07 PM EDT Respiratory Rate 18 09/01/2014 2:07 PM EDT Oxygen Saturation 100% 09/01/2014 2:07 PM EDT Inhaled Oxygen Concentration - - [...] documented as of this encounter Progress Notes Ashley King RN - 09/01/2014 6:04 PM EDT Patient Name: Bucky Acevedo Patient Age: 54 y.o. Birthdate: 1960 Admit date: 09/01/2014 Attending Physician: Infusion Therapy, Meds 1700 - 1845 Assumed care of pt at 1700 from Dianelys Andrade RN. Rituxan infusion completed without incident as ordered. Pt was discharged at 1845 per W/C accompanied by . Pt advised to call if any problems and verbalized understanding. Dianelys Avendaño RN - 09/01/2014 3:20 PM EDT Patient Name: Bucky Acevedo Patient Age: 54 y.o. Birthdate: 1960 Admit date: 09/01/2014 Attending Physician: Infusion Therapy, Meds TIME TREATMENT STARTED: 1400 TIME TREATMENT ENDED: 1700 handoff report to Luda King RN Bucky Acevedo, 54 y.o. 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 PROTOCOL: n/a CYCLE: 2 WEEK: n/a DAY: 1 S: Pt. offers no complaints at this time. O: Chemotherapy orders independently verified for correct drug name, route and dosage per patient's height, weight and BSA by Dianelys Avendaño RN and onsite pharmacist. Pt. Very difficult for IV access. Were able to obtain a 24 g. PIV to R hand which we used for pre-medications though not able to get blood return and too tenuous for rapid Rituxan. IV team at this time have had 2 RN's attempt placement. Would page IV team first next time pt. Is in. REACTIONS (DESCRIPTION, TIME, INTERVENTION AND EFFECTIVENESS) None at this time. A: Pt. Tolerated treatment well. Bucky Robles Curtis confirms that all questions and issues have been addressed. P: Return to clinic as advised. documented in this encounter Plan of Treatment Upcoming Encounters Date Type Specialty Care Team Description 06/19/2022 Office Visit Rheumatology Richi Blackmon MD [facility] DR RHEUMATOLOGY [place], [place] [address] (Wo rk) Scheduled Procedures Name Priority Associated Diagnoses Date/Time EGD, UPPER GI ENDOSCOPY Family hx of colon cance r COLONOSCOPY, DIAGNOSTIC Family hx of colon cance r documented as of this encounter Visit Diagnoses Diagnosis Myopathy - Primary Myopathy, unspecified documented in this encounter Administered Medications Inactive Administered Medications - up to 3 most recent administrations Medication Order MAR Action Action Date Dose Rate Site acetaminophen (TYLENOL) tablet 650 Given 09/01/2014 2:59 PM EDT 650 mg mg 650 mg, Oral, ONCE, 1 dose, On Sat09/01/14 at 1415, Upon arrival prior to rituximab., Routine dexamethasone (DECADRON) injection 10 mg Given 09/01/2014 3:00 PM EDT 10 mg 10 mg, Intravenous, ONCE, 1 dose, On Sat09/01/14 at 1415, Before Rituximab diphenhydrAMINE (BENADRYL) injection 50 mg Given 09/01/2014 3:00 PM EDT 50 mg 50 mg, Intravenous, ONCE, 1 dose, On Sat09/01/14 at 1415, Upon arrival prior to rituximab., Routine riTUXimab (RITUXAN) 800 mg in sodium New Bag 09/01/2014 5:07 PM ED T 800 mg chloride 0.9% 400 mL infusion 800 mg, Intravenous, ONCE, 1 dose, On Sat09/01/14 at 1415, Administer intravenously at an initial rate of [...] myopathy documented in this encounter Care Teams Outreach Counselor Relationship Specialty Start Date End Date Jamzine Baer MD PCP - General 11/07/10 [address] [place] [address] documented as of this encounter
--- OUTSIDE RECORDS SUMMARY | 2022-04-11 10:54 | XMS_ITS | Encounter Summary ---
:1960 Author Organization [facility] [place] [address] Care Team Providers Name Role Phone Jazmine Baer MD Primary Care Provider Encounter Details Date Type Department Care Team Description 01/14/2015 Follow-Up Neurology at [facility] Henrry Gleason, Autoimmune necrotizing [facility] [place] [address] NEUROLOGY DEPT. [place], [place] [address] (Wo rk) Social History Tobacco Use Types Packs/Day Years Used Date Never Smoker Smokeless Tobacco: Never Used Alcohol Use Standard Drinks/Week Comments No 0 (1 standard drink = 0.6 oz pure alcoho l) Sex Assigned at Date Recorded Not on file documented as of this encounter Last Filed Vital Signs Vital Sign Reading Time Taken Comments Blood Pressure 149/70 01/14/2015 9:47 AM EDT Pulse 60 01/14/2015 9:47 AM EDT Temperature - - Respiratory Rate - - Oxygen Saturation - - Inhaled Oxygen Concentration - - Weight 109.8 kg (242 lb) 01/14/2015 9:47 AM EDT Height 174 cm (5' 8.5) 01/14/2015 9:47 AM EDT Body Mass Index 36.26 01/14/2015 9:47 AM EDT documented in this encounter Progress Notes Henrry Gleason MD - 01/14/2015 11:19 AM EDT 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 He is not improving on the IVIG steroid regimen, but on the other hand, he is not getting worse. His CPK is creeping down and is presently 3019 as of the end of November,. His sedimentation rate at that time was 86. He can stand and pivot, but he is unable to walk. He is a heavy man at 242 pounds. He has been unable to exercise because of the weakness. His arms are of near normal strength. Patient is feeling discouraged as he is unable to regain his strength. He denies any bowel or bladder dysfunction or any shortness of breath or chest pain. On exam, there is some subtle weakness in his arms proximally. He has 3/5 weakness in the iliopsoas and quads bilaterally and near normal strength distally in his lower extremities. The knee flexors may be slightly weak as well. He is areflexic. His sensory exam is normal. Cranial nerves are unremarkable. He has no major atrophy of his muscles. I spoke with Dr. Prieto on the phone today. He does think that cyclophosphamide will need to be started in the relatively near future. He wants to continue IVIG and steroids for another two months. He is to have a repeat sed rate and CK drawn today. The fact that his muscle enzyme is still markedly elevated and that he has an elevated sed rate suggests active disease. I will try to follow up with him in the next few months. He is to call me in the interim with any questions. documented in this encounter Plan of Treatment Upcoming Encounters Date Type Specialty Care Team Description 06/19/2022 Office Visit Rheumatology Richi Blackmon MD [facility] DR RHEUMATOLOGY [place], [place] [address] (Wo rk) Scheduled Procedures Name Priority Associated Diagnoses Date/Time EGD, UPPER GI ENDOSCOPY Family hx of colon cance r COLONOSCOPY, DIAGNOSTIC Family hx of colon cance r documented as of this encounter Visit Diagnoses Diagnosis Autoimmune necrotizing myopathy documented in this encounter Care Teams Scrap Baller Relationship Specialty Start Date End Date Jazmine Baer MD PCP - General 11/07/10 [address] [place], [place] [id number] documented as of this encounter
--- OUTSIDE RECORDS SUMMARY | 2022-04-11 10:54 | XMS_ITS | Encounter Summary ---
:1960 Author Organization [facility] [place] [address] Care Team Providers Name Role Phone Jazmine Baer MD Primary Care Provider Reason for Visit Reason Onset Date Comments Questions 03/15/2015 Encounter Details Date Type Department Care Team Description 03/15/2015 Telephone Neurology at [facility] Henrry Gleason MD Questions [facility] D sheilae [facility] [place] [address] NEUROLOGY DEPT. [phone] [place], [place] [address] (Wo rk) Social History Tobacco Use Types Packs/Day Years Used Date Never Smoker Smokeless Tobacco: Never Used Alcohol Use Standard Drinks/Week Comments No 0 (1 standard drink = 0.6 oz pure alcoho l) Sex Assigned at Date Recorded Not on file documented as of this encounter Miscellaneous Notes Telephone Encounter - Celina Jarrett RN - 03/17/2015 12:47 PM EDT Pt to have infusions at [facility] Called [facility] to inform pt not to be having infusions there and to disregard the orders sent Telephone Encounter - Gail Contreras - 03/17/2015 12:16 PM EDT Vance from [facility] called in regards to this patients IVIG orders. They received theorders but they need clarification/more information prior to be able to fill it. Please call to discuss Telephone Encounter - Sharon Stokes RN - 03/15/2015 6:21 PM EDT Pt needs new IVIG and IV Solumedrol orders sent in. I called [facility] in [facility] and they had no record of him having infusions there ineither of the infusion clinics. LM for pt earlier on home number and again now on cell at 6:22 pm as both just go directly to voicemail. Advised please call tomorrow so that the orders can be sent along. documented in this encounter Plan of Treatment Upcoming Encounters Date Type Specialty Care Team Description 06/19/2022 Office Visit Rheumatology Richi Blackmon MD [facility] DR RHEUMATOLOGY [place], [place] [address] (Wo rk) Scheduled Procedures Name Priority Associated Diagnoses Date/Time EGD, UPPER GI ENDOSCOPY Family hx of colon cance r COLONOSCOPY, DIAGNOSTIC Family hx of colon cance r documented as of this encounter Visit Diagnoses Not on filedocumented in this encounter Care Teams Research Administrator Relationship Specialty Start Date End Date Jazmine Baer MD PCP - General 11/07/10 [address] [place] [address] documented as of this encounter
--- OUTSIDE RECORDS SUMMARY | 2022-04-11 10:54 | XMS_ITS | Encounter Summary ---
:1960 Author Organization [facility] [place] [address] Care Team Providers Name Role Phone Jazmine Baer MD Primary Care Provider Encounter Details Date Type Department Care Team Description 09/15/2014 External Results [facility] Ana Zamora MD [facility] [place] [address] NEUROLOGY DEPT. [phone] [place], [place] [address] (Wo rk) Social History Tobacco [...] 06/19/2022 Office Visit Rheumatology Richi Blackmon MD [facility] ER DR RHEUMATOLOGY [place]P [place], [place] [address] (Wo rk) Scheduled Procedures Name Priority Associated Diagnoses Date/Time EGD, UPPER GI ENDOSCOPY Family hx of colon cance r COLONOSCOPY, DIAGNOSTIC Family hx of colon cance r documented as of this encounter Visit Diagnoses Not on filedocumented in this encounter Care Teams Siebel Crm Developer Relationship Specialty Start Date End Date Jazmine Baer MD PCP - General 11/07/10 [address] [place] [address] documented as of this encounter
--- OUTSIDE RECORDS SUMMARY | 2022-04-11 10:54 | XMS_ITS | Encounter Summary ---
:1960 Author Organization [facility] [place] [address] Care Team Providers Name Role Phone Jazmine Baer MD Primary Care Provider Reason for Referral Physical Therapy (Routine) - Closed Specialty Diagnoses / Procedures Referred By Contact Refer red To Contact Physical Therapy Diagnoses Myopathy Ruperto Mcclellan MD [facility] [place] [address] [place] [address] Fax: Referral ID Status Reason Start Date Expiration Date Visits V isits Requested Authorized [id number] Closed Evaluate and 08/25/2014 08/25/2015 12 12 Treat Encounter Details Date Type Department Care Team Description 08/25/2014 Orders Only Neurology at [facility] Ruperto Mcclellan MD [facility] [place] [address] NEUROLOGY DEPT [phone] [place], [place] [address] (Wo rk) Social History Tobacco [...] Visit Rheumatology Richi Blackmon MD [facility] RHEUMATOLOGY [place], [place] [address] (Wo rk) Scheduled Procedures Name Priority Associated Diagnoses Date/Time EGD, UPPER GI ENDOSCOPY Family hx of colon cance r COLONOSCOPY, DIAGNOSTIC Family hx of colon cance r Scheduled Referrals Name Type Priority Associated Diagnoses Order S chedule Referral to Outpatient Referral Routine Myopathy Ordered: Physical Therapy 08/25/2014 documented as of this encounter Visit Diagnoses Diagnosis Myopathy Myopathy, unspecified documented in this encounter Care Teams Manager Database Administration Relationship Specialty Start Date End Date Jazmine Baer MD PCP - General 11/07/10 [address] [place] [address] documented as of this encounter
--- OUTSIDE RECORDS SUMMARY | 2022-04-11 10:55 | XMS_ITS | Encounter Summary ---
:1960 Author Organization [facility] [place] [address] Care Team Providers Name Role Phone Jazmine Baer MD Primary Care Provider Encounter Details Date Type Department Care Team Description 05/14/2014 Orders Only Gastroenterology at [facility] Glenna Mendoza, [facility] [place] [address] Social History Tobacco Use Types Packs/Day [...] 06/19/2022 Office Visit Rheumatology Richi Blackmon MD [facility] ER DR RHEUMATOLOGY [place], [place] [address] (Wo rk) Scheduled Procedures Name Priority Associated Diagnoses Date/Time EGD, UPPER GI ENDOSCOPY Family hx of colon cance r COLONOSCOPY, DIAGNOSTIC Family hx of colon cance r documented as of this encounter Visit Diagnoses Not on filedocumented in this encounter Care Teams Front End Technician Relationship Specialty Start Date End Date Jazmine Baer MD PCP - General 11/07/10 [address] [place] [address] documented as of this encounter
--- OUTSIDE RECORDS SUMMARY | 2022-04-11 10:55 | XMS_ITS | Encounter Summary ---
:1960 Author Organization [facility] [place] [address] Care Team Providers Name Role Phone Jazmine Baer MD Primary Care Provider Encounter Details Date Type Department Care Team Description 08/17/2014 Notes Only [place]rology [place] [facility] Ruperto Mcclellan MD [facility] [place] [address] NEUROLOGY DEPT [phone] [place] [id number] (Wo rk) Social History Tobacco Use Types [...] documented as of this encounter Progress Notes Ruperto Mcclellan MD - 08/17/2014 12:40 PM EDT Patient attended muscle meeting (5C conference room) today, met with Cruzito Lea Alberts, along with other fellows & providers attending the meeting. He is accompanied by his and eldest son. Patient's clinical synopsis as below provided and examined. Bucky Acevedo is a 54 y.o. 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 Used to see Dr. Bucky Marie [...] further work up for myopathy -> [place] [address] ?? Muscle Bx [place] [facility] [place] (Dr. Gleason) c/w necrotizing myopathy (cannot rule out inclusion body myositis) ?? Bx reviewed by Dr. Ricardo in [place], consistent with necrotizing myopathy without significant infalmmation [...] Antibody Panel Plus 06/2009 negative (anti-Kiesha, PM/SCL, PR-2, PL-7, PL-12, EJ, OJ KU, U2 SN FOREIGN LEGAL CONSULTANT, SRP) ?? mitochondrial mutations: Absence of all [...] ?? Stopped MTX in summer (seen in [place] for this decision) but stopped seeing Dr. [...] 1000mg BID (schedule given to patient) ?? 08/05 (before IVIG) CK 5720, HbA1c 6.4 ?? Anti HMGCR Ab positive at titer value >200 (negative <20, strongly positive >=60), repeat muscle biopsy deferred REFERENCES: Curr Opin Rheumatol. 2010;23(6):612-9. doi: 10.1097/BOR.[id number]. Necrotizing autoimmune myopathy. Navya Kerr. Muscle Nerve. 2009;41(2):185-90. doi: 10.1002/mus.89992. Immune-mediated necrotizing myopathy associated with statins. Lewis P1, Dominik HD, Cynthia SA, Keith J, Julissa J, Davion AA. Interval History: Now on cellcept 1000mg BID. Yesterday had very little appetite and had diarrhea, unsure if this is related to cellcept. He was on cellcept 500mg daily for about a week. He was seen in the clinic on 07/29. He feels his strength is worse and very difficult to get out the chair on his own, and now still walking with a cane but feels that he is on a decline to get weaker as he did last relapse years ago. His last HbA1c was less than 7 and recently lost some weight. Of note his HbA1c was 12 a little over a year ago. Physical Exam (focused): Gen: NAD Neck: Supple Neuro Exam: MS: AAOx4, clear language, no dysarthria, follows commands CN: EOMI, no facial asymmetry Motor: Normal bulk and tone. UE: 5/5 R shoulder abduction, 4-/5 R elbow flexion, 4+/5 L shoulder abduction, 5/5 R 4/5 L elbow flexion LE: 2/4 BL hip flexion, 5/5 BL knee flexion & extension, foot dorsi/plantarflexion Gait: waddling gait with a cane, need to use 2 hands on chair arms to get up with his son's assistancce (difficult) Assessment / Plan: Bucky Acevedo is a 54 y.o. 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 He had a relapse inworsening proximal weakness recently, refractory to IVIG x 5 days early Feb, IVIG 2 days 2 weeks ago. Likely too early to tell if Cellcept is helping or not (can take 6 weeks on therapeutic dose beforeseeing benefit). As his weakness has been refractory to IVIG, discussed alternative treatment options. 1) plasmapheresis: could be beneficial but high risk for complications given his comorbidities, 2)rituximab: initiation outpatient would be delayed for weeks approval and he is rapidly getting weaker. Either options would also pose his difficult IV access an issue and he also has h/o previous port clotting more than once. He will need to be admitted to the inpatient service for either of these treatments to be initiated. -recheck CK -stop IVIG -will arrange for admission for rituximab Ruperto Mcclellan MD Neurology Resident, PGY4 Pager [phone] documented in this encounter Plan of Treatment Upcoming Encounters Date Type Specialty Care Team Description 06/19/2022 Office Visit Rheumatology Richi Blackmon MD [facility] DR RHEUMATOLOGY [place], [place] [address] (Wo rk) Scheduled Procedures Name Priority Associated Diagnoses Date/Time EGD, UPPER GI ENDOSCOPY Family hx of colon cance r COLONOSCOPY, DIAGNOSTIC Family hx of colon cance r documented as of this encounter Visit Diagnoses Not on filedocumented in this encounter Care Teams Button Riveter Relationship Specialty Start Date End Date Jazmine Baer MD PCP - General 11/07/10 [address] [place] [address] documented as of this encounter
--- OUTSIDE RECORDS SUMMARY | 2022-04-11 10:55 | XMS_ITS | Encounter Summary ---
:1960 Author Organization [facility] [place] [address] Care Team Providers Name Role Phone Jazmine Baer MD Primary Care Provider Encounter Details Date Type Department Care Team Description 06/04/2014 Hospital Encounter Laboratory PhilipFermín Cirrhosis of liver [facility] MD [place] [facility] [address] GASTROENTEROLOGY [phone] [place] [id number] Social History Tobacco Use Types Packs/Day Years [...] Sig Dispensed Refills Start Date End Date warfarin (COUMADIN) 5 Take 5 mg by mouth 0 06/30/2014 mg tablet daily. omeprazole (PRILOSEC) Take 1 capsule by mouth 90 capsule 3 0 09/03/2013 12/25/2017 40 mg capsule daily. indomethacin Take 25 mg by mouth 2 0 0 10/13/2015 (INDOCIN) 25 mg times daily (with capsule meals). As needed ondansetron (ZOFRAN) Take 1 tablet by mouth 20 tablet 3 02/201402/29/2020 4 mg tablet as needed. INSULIN LISPRO Inject 12 Units 0 07/13 (HUMALOG SUBQ) subcutaneously 3 times daily (with meals). insulin glargine Inject 75 Units 0 08/2014 (LANTUS) 100 unit/mL subcutaneously nightly. vial injection lisinopril-hydrochlor Take 2 tablets by mouth 0 05/02/2021 othiazide daily. (PRINZIDE;ZESTORETIC) 20-12.5 mg per tablet atenolol (TENORMIN) Take 50 mg by mouth 0 10/13/2015 100 mg tablet daily. traMADol (ULTRAM) 50 Take 100 mg by mouth 2 0 01/14/2015 mg tablet times daily. documented as of this encounter Plan of Treatment Upcoming Encounters Date Type Specialty Care Team Description 06/19/2022 Office Visit Rheumatology Richi Blackmon MD [facility] ER DR RHEUMATOLOGY [place], [place] [address] (Wo rk) Scheduled Procedures Name Priority Associated Diagnoses Date/Time EGD, UPPER GI ENDOSCOPY Family hx of colon cance r COLONOSCOPY, DIAGNOSTIC Family hx of colon cance r documented as of this encounter Procedures Procedure Name Priority Date/Time Associated Comments Diagnosis LAB SCAN 06/24/2014 12:00 AM EST HEMOGRAM Routine 06/04/2014 3:15 PM Cirrhosis of liver Res ults for this EST procedure are i n the results section. DIFFERENTIAL, Routine 06/04/2014 3:15 PM Cirrhosis of liver Re sults for this AUTOMATED EST procedure are i n the results section. ZINC Routine 06/04/2014 3:15 PM Cirrhosis of liver Res ults for this EST procedure are i n the results section. PROTHROMBIN TIME Routine 06/04/2014 3:15 PM Cirrhosis of liver Results for this EST procedure are i n the results section. CBC (WITH DIFF) Routine 06/04/2014 3:15 PM Cirrhosis of liver EST COMPREHENSIVE Routine 06/04/2014 3:15 PM Cirrhosis of liver Re sults for this METABOLIC PANEL EST procedure ar e in (NON-FASTING) the results section. documented in this encounter Results SCAN DOC: LAB (06/24/2014 12:00 AM EST) Narrative This result has an attachment that is no t available. Scanning Provider MEDIA MGR SCAN EXT ORDR/RSLT Differential, Automated (06/04/2014 3:15 PM EST) P athologist Signature Neutrophils % 64.5 % CERNER MILLENNIUM Neutr Abs (ANC) 4.36 1.50 - CERNER 6.30 MILLENNIUM x10(3)/mcL Lymphocytes % 23.4 % CERNER MILLENNIUM Lymphocytes Abs 1.6 1.0 - 3.6 CERNER x10(3)/mcL MILLENNIUM Monocytes % 7.7 % CERNER MILLENNIUM Monocyte Abs 0.5 0.2 - 1.0 CERNER x10(3)/mcL MILLENNIUM Eosinophils % 3.7 % CERNER MILLENNIUM Eosinophils Abs 0.2 0.0 - 0.5 CERNER x10(3)/mcL MILLENNIUM Basophils % 0.6 % CERNER MILLENNIUM Basophils Abs 0.0 0.0 - 0.2 CERNER x10(3)/mcL MILLENNIUM Immature Gran % 0.10 % CERNER MILLENNIUM Comment: Immature granulocytes(IG's)percentage an [...] Location / / Volume Laterality Blood specimen 06/04/2014 3:15 PM 014 3:21 (specimen) EST PM EST Resulting Agency Comment Spec In Lab Fermín Palacios MD HEMATOLOGY ORDERABLES Performing Organization Address City/State/[place] [address] CERNER MILLENNIUM (ABNORMAL) Hemogram (06/04/2014 3:15 PM EST) P athologist Signature WBC 6.8 4.0 - 10.0 CERNER x10(3)/mcL MILLENNIUM RBC 3.98 (L) 4.63 - CERNER 6.08 MILLENNIUM x10(6)/mcL Hemoglobin 11.4 (L) 13.7 - CERNER 17.5 gm/dL MILLENNIUM Hematocrit 34.0 (L) 40.0 - CERNER 51.0 % MILLENNIUM MCV 85.4 79.0 - CERNER 92.0 fL MILLENNIUM MCH 28.6 25.6 - CERNER 32.2 pg MILLENNIUM MCHC 33.5 32.0 - CERNER 36.5 gm/dL MILLENNIUM Platelets 141 (L) 145 - 370 CERNER x10(3)/mcL MILLENNIUM RDWSD 45.4 35.0 - CERNER 46.0 fL MILLENNIUM RDWCV 14.6 (H) 10.9 - CERNER 14.4 % MILLENNIUM MPV 10.6 9.0 - 12.0 CERNER fL MILLENNIUM Specimen Anatomical Collection Method Collection Time Receive d Time (Source) Location / / Volume Laterality Blood specimen 06/04/2014 3:15 PM 014 3:21 (specimen) EST PM EST Resulting Agency Comment Spec In Lab Fermín Palacios MD HEMATOLOGY ORDERABLES Performing Organization Address City/State/[place] [address] [facility] MILLENNIUM (ABNORMAL) Prothrombin Time (06/04/2014 3:15 PM EST) P athologist Signature PT 15.5 12.5 - 15.5 CERNER sec MILLENNIUM Comment: [facility] Transfusion Committee Guidelines: I NR less than 2.0, PTT less than OR equal to 43.5 seconds, or Fibrinogen gre ater than or equal to 100 mg/dl indicate adequate procoagulant activity for hemostasis in patients without underlying bleeding disorders. INR 1.2 (H) 0.9 - 1.1 [facility] Specimen Anatomical Collection Method Collection Time Receive d Time (Source) Location / / Volume Laterality Blood specimen 06/04/2014 3:15 PM 014 3:21 (specimen) EST PM EST Resulting Agency Comment Spec In Lab Fermín Palacios MD HEMATOLOGY ORDERABLES Performing Organization Address City/[facility]/ZIP Code Phon e Number [facility] [place] [address] CERNER MILLENNIUM (ABNORMAL) Comprehensive metabolic panel (non-fasting) (06/04/2014 3:15 PM EST) athologist Signature Glucose Lvl 159 60 - 199 CERNER mg/dL MILLENNIUM Comment: Diabetes: >=200 mg/dL plus symp toms BUN 32 (H) 10 - 20 mg/dL CERNER MILLENNIU M Creatinine 1.88 (H) 0.80 - 1.50 mg/dL CERNER MILL ENNIUM Comment: Please note that the pediatric reference intervals supplied above were not validated at [facility]. Results from pediatri c patients should be interpreted in conjunction to the patient's age, height and muscle mass. Sodium 141 135 - 145 mmol/L CERNER ELISE NIUM Potassium 4.0 3.5 - 5.0 mmol/L CERNER ELISE NIUM Comment: Please note: ??Patients with WBC >100,00 0 may have falsely elevated Potassium levels. ??For accurate Potassium quantif ication in these patients send serum separator tube (gold top) for subsequent determinations. ??Contact the Clinical Chemistry Laboratory if there are any qu estions. Chloride 101 98 - 107 mmol/L CERNER MILLENN IUM CO2 23 22 - 31 mmol/L CERNER MILLENNI UM Anion Gap 17 (H) 5 - 15 mmol/L CERNER MILLENNIU M Calcium 8.8 8.5 - 10.5 mg/dL CERNER ELISE NIUM Total Protein 7.5 6.4 - 8.3 gm/dL CERNER MIL LENNIUM Albumin 3.8 3.2 - 5.2 gm/dL CERNER MILLENN IUM AST 219 (H) 0 - 39 unit/L CERNER MILLENNIU M ALT 246 (H) 0 - 55 unit/L CERNER MILLENNIU M Alk Phos 140 (H) 40 - 120 unit/L CERNER MILLENN IUM Total Bilirubin 0.4 0.2 - 1.3 mg/dL CERNER M ILLENNIUM Bili, Direct 0.1 0.0 - 0.3 mg/dL CERNER MILL ENNIUM Estimated GFR 37 (L) >=60 CERNER MILLENNIU M Comment: This estimated [...] the following links into your internet browser. [email or web address] Specimen Anatomical Collection Method Collection Time Receive d Time (Source) Location / / Volume Laterality Blood specimen 06/04/2014 3:15 PM 014 3:21 (specimen) EST PM EST Resulting Agency Comment Spec In Lab Fermín Palacios MD CHEMISTRY ORDERABLES Performing Organization Address City/[facility]/[place] [address] CERNER MILLENNIUM (ABNORMAL) Zinc (06/04/2014 3:15 PM EST) athologist Signature Zinc 0.62 (L) 0.66 - 1.10 CERNER mcg/mL MILLENNIUM Comment: Test Performed by: [place] [address] Slasher Tender: Nikia Morton Specimen Anatomical Collection Method Collection Time Receive d Time (Source) Location / / Volume Laterality Blood specimen 06/04/2014 3:15 PM 014 8:40 (specimen) EST AM EST Resulting Agency Comment Spec In Lab Fermín Palacios MD CHEMISTRY ORDERABLES Performing Organization Address City/State/ZIP [facility] [place] [address] CERNER MILLENNIUM documented in this encounter Visit Diagnoses Diagnosis Cirrhosis of liver Cirrhosis of liver without mention of al cohol documented in this encounter Care Teams Quantitative Analyst Marketing Relationship Specialty Start Date End Date Jazmine Baer MD PCP - General 11/07/10 [address] [place] [address] documented as of this encounter
--- OUTSIDE RECORDS SUMMARY | 2022-04-11 10:55 | XMS_ITS | Encounter Summary ---
:1960 Author Organization [facility] [place] [address] Care Team Providers Name Role Phone Jazmine Baer MD Primary Care Provider Encounter Details Date Type Department Care Team Description 08/10/2014 [facility] [place] [address] Social History Tobacco Use Types Packs/Day [...] Date multivitamin Capsule Take 1 capsule by 0 mouth daily. mycophenolate Take 4 capsules by 60 capsule 3 07/29/201405/2015 (CELLCEPT) 250 mg mouth 2 times daily. Capsule Follow titration schedule insulin glargine Inject 25 Units 10 mL [...] infusions. omeprazole (PRILOSEC) Take 1 capsule by 90 capsule 3 014 12/25/2017 40 mg capsule mouth daily. indomethacin (INDOCIN) Take 25 mg by mouth 2 0 10/13/2015 25 mg capsule times daily (with meals). As needed ondansetron (ZOFRAN) 4 Take 1 tablet by mouth 20 tablet 3 0 06/18/2013 02/29/2020 mg tablet as needed. lisinopril-hydrochloro Take 2 tablets by 0 05/02/2021 thiazide mouth daily. (PRINZIDE;ZESTORETIC) 20-12.5 mg per tablet atenolol (TENORMIN) Take 50 mg by mouth 0 10/13/2015 100 mg tablet daily. traMADol (ULTRAM) 50 Take 100 mg by mouth 2 0 01/14/2015 mg tablet times daily. documented as of this encounter Plan of Treatment Upcoming Encounters Date Type Specialty Care Team Description 06/19/2022 Office Visit Rheumatology Richi Blackmon MD [facility] ER DR RHEUMATOLOGY [place], [place] [address] (Wo rk) Scheduled Procedures Name Priority Associated Diagnoses Date/Time EGD, UPPER GI ENDOSCOPY Family hx of colon cance r COLONOSCOPY, DIAGNOSTIC Family hx of colon cance r documented as of this encounter Procedures Procedure Name Priority Date/Time Associated Diagnosis Comme nts US ABDOMEN COMPLETE Routine 08/10/2014 10:54 AM R esults for this WITH VASCULAR EST procedure are in the results section. documented in this encounter Results US abdomen complete with vascular (08/10/2014 10:54 AM EST) Anatomical Region Laterality Modality Abdomen Ultrasound Specimen (Source) Anatomical Collection Method Collection Time Re ceived Time Location / / Volume Laterality 08/10/2014 10:54 AM EST Narrative 08/10/2014 11:07 AM EST Abdominal Duplex ? (Signed Final 08/10/2014 11:05 am) Patient Info ID #: ? [id number] ? : [birth year] (54 yrs) Name: ? BUCKY BETH ?Visit Date:08/10/2014 10:49 am Performed By Performed By: ?Marisabel Morales RDMS Attending: ? Charito FONSECA, Luiz Stout Referred By: ? GABE UREÑA Service(s) Provided ??UABDCVASC - Abdominal Complete Survey with Vascular - 91378, [id number] ??[id number], [id number] Indications ??cirrhosis, HCC surveillance, portal H [place] surveillance ----- Liver ----- Right Lobe Length: ?? 18.5 ?? cm Echogenicity/Echotexture: ?? Coarse par enchyma ------- Lesions ------- ??# ?Date ?Location ? Description ? L ? AP ?TV (cm) ??1 ?08/10/14 ?Right lobe ? Hemangioma ?1.9 ?1.7 ? 1.6 Comment: ?Surface nodularity Gallbladder Cholelithiasis: ?No stones visua lized Wall Thickness: ?1.8 mm Focal Tenderness: ?Negative Morgan' s sign Biliary Tract Intrahepatic Ducts: ?? Normal Extrahepatic Ducts: ?? Normal Common Duct Size: ? 5.0 ? mm -------- Pancreas -------- Head: ? Normal Tail: ? Poorly visua lized due to overlying bowel Body: ? Normal ------ Spleen ------ Size (cm) ? L: 15.6 ?AP: ??1 6.0 ?TV: ??6.0 Vol (ml): ?784.1 Comment: ?Spleenomegaly Right Kidney Size (cm) ? L: 10.9 ?AP: ??4 .7 ? TV: ??4.6 Cortical Thickness: ?Normal Cortical Echogenicity: ?? Normal Hydronephrosis: ?No sonogr aphic evidence Left Kidney Size (cm) ? L: 10.3 ?AP: ??6 .4 ? TV: ??5.3 Cortical Thickness: ?Normal Cortical Echogenicity: ?? Normal Hydronephrosis: ?No sonogr aphic evidence ----- Aorta ----- Measurements (cm): Mid ? AP: ??2.6 Distal ?AP: ??1.9 Comment: ?Proximal portion was not visualized due to excessive ? bowel gas --- IVC --- Proximal portion, normal in caliber Fluid Collections No ascites seen. Hepatic-Portal Duplex ? PSV ? ED V ? RI ??Waveform ? (cm/s) ??(cm/s) Hepatic Artery: ??109.0 ?20.0 ? 0.81 ??Patent Right Hepatic ? Patent Vein: Middle Hepatic ?Patent Vein: Left Hepatic ?Patent Vein: Portal Vein At ?35.0 ?Hepatopetal [place]: Main Portal ? 23.0 ?Hepatopetal Vein: Right Portal ?21.0 ?Hepatopetal Vein: Left Portal Vein: 16.0 ?Hepatopetal Splenic Vein At ?? 32.0 ?Hepatopetal [place]: IVC: ?Patent Impression Ultrasound - Abdomen Complete - Summary Stable coarse heterogeneous enlarged li uzair with stable hepatic hemangioma. No ascites. Stable enlarged spleen. Ultrasound - Vascular evaluation - Summ mamadou Portal vein, hepatic veins, and hepatic artery demonstrated normal directional flow and waveforms I ??viewed the images and agree with ady lyn above interpretation. ?Nikia Roman Electronically Signed Final Report ?? 11:05 am Procedure Note Evelin Little MD - 08/2014 Abdominal Duplex (Signed Final 08/11/19 11:05 am) Patient Info ID #: [id number] : [birth year] (54 y rs) Name: BUCKY BETH Visit Date:08/10 10:49 am Performed By Performed By: Marisabel Morales RDMS Attending: Evelin Mcneill MD Referred By: GABE WEEKS APRN Service(s) Provided UABDCVASC - Abdominal Complete Survey w [facility] Vascular - 07255, 54583 [id number], [id number] Indications cirrhosis, HCC surveillance, portal HTN surveillance ----- Liver ----- Right Lobe Length: 18.5 cm Echogenicity/Echotexture: Coarse parenc hyma ------- Lesions ------- # Date Location Description L AP TV (cm ) 1 08/10/14 Right lobe ?? Hemangioma 1.9 1.7 1.6 Comment: Surface nodularity Gallbladder Cholelithiasis: No stones visualized Wall Thickness: 1.8 mm Focal Tenderness: Negative Morgan's sig n Biliary Tract Intrahepatic Ducts: Normal Extrahepatic Ducts: Normal Common Duct Size: 5.0 mm -------- Pancreas -------- Head: Normal Tail: Poorly visualized due to overlyin g bowel Body: Normal ------ Spleen ------ Size (cm) L: 15.6 AP: 16.0 TV: 6.0 Vol (ml): 784.1 Comment: Spleenomegaly Right Kidney Size (cm) L: 10.9 AP: 4.7 TV: 4.6 Cortical Thickness: Normal Cortical Echogenicity: Normal Hydronephrosis: No sonographic evidence Left Kidney Size (cm) L: 10.3 AP: 6.4 TV: 5.3 Cortical Thickness: Normal Cortical Echogenicity: Normal Hydronephrosis: No sonographic evidence ----- Aorta ----- Measurements (cm): Mid AP: 2.6 Distal AP: 1.9 Comment: Proximal portion was not visua lized due to excessive bowel gas --- IVC --- Proximal portion, normal in caliber Fluid Collections No ascites seen. Hepatic-Portal Duplex PSV EDV RI Waveform (cm/s) (cm/s) Hepatic Artery: 109.0 20.0 0.81 Patent Right Hepatic Patent Vein: Middle Hepatic Patent Vein: Left Hepatic Patent Vein: Portal Vein At 35.0 Hepatopetal [place]: Main Portal 23.0 Hepatopetal Vein: Right Portal 21.0 Hepatopetal Vein: Left Portal Vein: 16.0 Hepatopetal Splenic Vein At 32.0 Hepatopetal [place]: IVC: Patent Impression Ultrasound - Abdomen Complete - Summary Stable coarse heterogeneous enlarged li uzair with stable hepatic hemangioma. No ascites. Stable enlarged spleen. Ultrasound - Vascular evaluation - Summ mamadou Portal vein, hepatic veins, and hepatic artery demonstrated normal directional flow and waveforms I viewed the images and agree with the above interpretation. Evelin Odom MD Electronically Signed Final Report 08/10 11:05 am Fermín Palacios MD IMG US GEN ORDERABLES documented in this encounter Visit Diagnoses Not on filedocumented in this encounter Care Teams Manager Lighting Relationship Specialty Start Date End Date Jazmine Baer MD PCP - General 11/07/10 [address] [place] [address] documented as of this encounter
--- OUTSIDE RECORDS SUMMARY | 2022-04-11 10:55 | XMS_ITS | Encounter Summary ---
:1960 Author Organization [facility] [address] Care Team Providers Name Role Phone Jazmine Baer MD Primary Care Provider Encounter Details Date Type Department Care Team Description 03/22/2014 Telephone Neurology at [facility] Ruperto Mcclellan MD [facility] [place] [address] NEUROLOGY DEPT [phone] [place] [phone] (Wo rk) Social History Tobacco Use Types [...] this encounter Miscellaneous Notes Telephone Encounter - Ruperto Mcclellan MD - 03/22/2014 12:26 PM EDT Called patient. Left a message for a call back to discuss recent lab values and future plans. documented in this encounter Plan of Treatment Upcoming Encounters Date Type Specialty Care Team Description 06/19/2022 Office Visit Rheumatology Richi Blackmon MD [facility] DR RHEUMATOLOGY [place], [place] [address] (Wo rk) Scheduled Procedures Name Priority Associated Diagnoses Date/Time EGD, UPPER GI ENDOSCOPY Family hx of colon cance r COLONOSCOPY, DIAGNOSTIC Family hx of colon cance r documented as of this encounter Visit Diagnoses Not on filedocumented in this encounter Care Teams Billing Department Supervisor Relationship Specialty Start Date End Date Jazmine Baer MD PCP - General 11/07/10 [address] [place] [address] documented as of this encounter
--- OUTSIDE RECORDS SUMMARY | 2022-04-11 10:55 | XMS_ITS | Encounter Summary ---
:1960 Author Organization [facility] [place] [address] Care Team Providers Name Role Phone Jazmine Baer MD Primary Care Provider Encounter Details Date Type Department Care Team Description 07/30/2014 Orders Only [place]rology [place] [facility] Ruperto Mcclellan MD [facility] [place] [address] NEUROLOGY DEPT [phone] [place], [place] [address] (Wo rk) Social History Tobacco [...] Richi Blackmon MD [facility] RHEUMATOLOGY DEP T [place], [place] [address] (Wo rk) Scheduled Procedures Name Priority Associated Diagnoses Date/Time EGD, UPPER GI ENDOSCOPY Family hx of colon cance r COLONOSCOPY, DIAGNOSTIC Family hx of colon cance r documented as of this encounter Visit Diagnoses Not on filedocumented in this encounter Care Teams Finished Goods Planner Relationship Specialty Start Date End Date Jazmine Baer MD PCP - General 11/07/10 [address] [place] [address] documented as of this encounter
--- OUTSIDE RECORDS SUMMARY | 2022-04-11 10:55 | XMS_ITS | Encounter Summary ---
:1960 Author Organization [facility] [place] [address] Care Team Providers Name Role Phone Jazmine Baer MD Primary Care Provider Reason for Visit Reason Onset Date Comments Other 07/23/2014 IVIG question Encounter Details Date Type Department Care Team Description 07/23/2014 Telephone Neurology at [facility] Ruperto Mcclellan MD Other (IVIG question) [facility] [place] [address] NEUROLOGY DEPT [phone] [place] [phone] (Wo rk) Social History Tobacco Use Types [...] Telephone Encounter - Ruperto Mcclellan MD - 07/23/2014 12:[address] Baer back. Confirmed IVIG monthly 500mg/kg/dose x 2 consecutive days for total of 1gram/kg per month. Telephone Encounter - Jh Alexandrelottie Godoy - 07/23/2014 9:00 AM EST Please call Dr. Baer at [phone] regarding clarificant on the IVIG dosing. documented in this encounter Plan of Treatment Upcoming Encounters Date Type Specialty Care Team Description 06/19/2022 Office Visit Rheumatology Richi Blackmon MD [facility] ER DR RHEUMATOLOGY [place], [place] [address] (Wo rk) Scheduled Procedures Name Priority Associated Diagnoses Date/Time EGD, UPPER GI ENDOSCOPY Family hx of colon cance r COLONOSCOPY, DIAGNOSTIC Family hx of colon cance r documented as of this encounter Visit Diagnoses Not on filedocumented in this encounter Care Teams Principal Scientist Relationship Specialty Start Date End Date Jazmine Baer MD PCP - General 11/07/10 [address] [place] [address] documented as of this encounter
--- OUTSIDE RECORDS SUMMARY | 2022-04-11 10:55 | XMS_ITS | Encounter Summary ---
:1960 Author Organization [facility] [address] Care Team Providers Name Role Phone Jazmine Baer MD Primary Care Provider Reason for Visit Reason Onset Date Comments Other 03/23/2014 Encounter Details Date Type Department Care Team Description 03/23/2014 Telephone [place] [facility]cc[place]llan [place] [address] NEUROLOGY DEPT [phone] [place] [phone] (Wo rk) Social History Tobacco Use Types [...] Telephone Encounter - Ruperto Mcclellan MD - 03/23/2014 4:04 PM EDT Called PCP's office (Dr. Jazmine Baer [phone]) regarding the plan with CK. Spoke with her nurse. They will have CK checked and fax over the result in 4 weeks. Telephone Encounter - Ruperto Mcclellan MD - 03/23/2014 3:58 PM EDT Spoke with patient. Instructed patient to have CK checked in about 4 weeks by PCP and have the result sent here. Patient's CK was elevated at the time of last visit but he had just fallen and strengthswere good on exam. Will clinically follow for indication to treat with immunotherapy Telephone Encounter - Uma Manriquez - 03/23/2014 1:47 PM EDT [facility] is returning Dr. Mcclellan's call. Please call him back at [phone] documented in this encounter Plan of Treatment Upcoming Encounters Date Type Specialty Care Team Description 06/19/2022 Office Visit Rheumatology Richi Blackmon MD [facility] DR RHEUMATOLOGY [place], [place] [address] (Wo rk) Scheduled Procedures Name Priority Associated Diagnoses Date/Time EGD, UPPER GI ENDOSCOPY Family hx of colon cance r COLONOSCOPY, DIAGNOSTIC Family hx of colon cance r documented as of this encounter Visit Diagnoses Not on filedocumented in this encounter Care Teams Window Glass Cutter Off Relationship Specialty Start Date End Date Jazmine Baer MD PCP - General 11/07/10 [address] [place] [address] documented as of this encounter
--- OUTSIDE RECORDS SUMMARY | 2022-04-11 10:55 | XMS_ITS | Encounter Summary ---
:1960 Author Organization [facility] [place] [address] Care Team Providers Name Role Phone Jazmine Baer MD Primary Care Provider Encounter Details Date Type Department Care Team Description 07/02/2014 Office Visit Neurology at [facility] Marino East MD [facility] [address] [facility] Germán Slaughter Jr., MD [facility] [place] [address] [place] [address] Social History Tobacco Use Types Packs/Day [...] Sign Reading Time Taken Comments Blood Pressure 167/70 07/02/2014 2:56 PM EST Pulse 69 07/02/2014 2:56 PM EST Temperature - - Respiratory Rate - - Oxygen Saturation - - Inhaled Oxygen Concentration - - Weight 111.1 kg (245 lb) 07/02/2014 2:56 PM EST Height 172.7 cm (5' 8) 07/02/2014 2:56 PM EST Body Mass Index 37.25 07/02/2014 2:56 PM EST documented in this encounter Progress Notes Marino East MD - 07/04/2014 10:45 AM EST I saw and evaluated the patient with Dr. Wan . I have reviewed the resident's history during the visit and I agree with the details as written. My neurological examination confirms the resident's findings. The assessment and plan were formulated in discussion with me at the time of the visit and I agree with them as documented. Discussed at length with patient and family about diagnostic considerations. Explained diagnosis and treatment. I went over medications, indications and side-effects. Patient understands and accepts our plan. .Marino East MD Germán Wan Jr. - 07/02/2014 3:29 PM EST Neurology Progress Note Bucky Acevedo 54 y.o. [id number] 07/02/2014 [id number] with generalized weakness Interval Events/Subjective Mr. Acevedo is in the clinic today for urgent evaluation of progressive weakness. He was last in clinic on 03/17/2014 at which time he had been doing OK in terms of his weakness despite being off IVIG since September 2013. Today he tells me that he has had some slow progression of his weakness manifesting as trouble going up stairs and reaching above his head since about March, but this seems to have accelerated over the past 2 weeks. He mentioned that over the recent weekend he had trouble with some fine motor skills (buttoning his pants), with associated muscle pain in the arms and legs. His chronicback pain continues. He denies any trouble breathing, double vision or choking. ROS ROS positive for constipation (since starting Fe supplementation for anemia), decreased appetite with 7lbs weight loss. Specifically denies any SOB or diplopia. Also negative for fevers, chills, nausea, vomiting, hematochezia/melena, hematuria, dysuria, headaches, vision changes, rashes or other skin lesions, easy bleeding/bruising, chest pain, dyspnea, cough or upper respiratory symptoms. Physical Exam: BP 167/70 Pulse 69 Ht 172.7 cm (5' 8) Wt 111.131 kg (245 lb) BMI 37.26 kg/m2 General: nondiaphoretic, no acute distress. Head/Neck: normocephalic/atraumatic. Oropharynx clear. Extremities: 1+ BLE edema, no joint abnormalities. Neuro: Mental Status: alert and oriented to person, follows directions. HEENT/CN: PERRL, EOMI without fatigue Facial sensation intact, muscles of mastication normal. Flattening of the left nasolabial fold, eyelids closed equally Hearing grossly intact Symmetric palate, midline tongue, no dysarthria. Normal shoulder shrug, normal head rotation strength Motor: Normal tone and bulk. No tremor or abnormal movements BUE: shoulder abduction, elbow flex and ext 4/5, while finger flexion, wrist flex/ext and auditor tax 5/5 BLE: hip flex/ext weak (left 4/5, right 3-4/5) knee flex/ext 4/5, ankle dorsi/plantar flex 5/5 Reflex: Biceps and KJ 1/4, AJs absent. Plantar reflex downgoing. Sensation: grossly intact to light touch. Temperature scientifically decreased in the feet, vibration decreased distal LE R>L. Proprioception intact distal LE Coordination: Pnwyoj-kevv-azbhah accurate but altered by shoulder weakness. Romberg not present. 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 Acevedo is a 54yo with proximal extremity weakness that started in 2008 in the setting of starting a statin; subsequent testing for genetric/mitochondrial cause. It seems that only a CXR was obtained to evaluate for underlying malignancy, although he was seen [place] [facility] and further investigation into this might have been done there. 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 He has been treated with MTX which caused a severe blistering rash, and more recently IVIG which seemed to keep things at bay. 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 Although IVIG seems to have been effective, he initially had trouble with maintaining peripheral IVsfor treatment, and subsequently had a port placed. This unfortunately clotted off (rather extensively) and has been removed. He therefore has not been treated for several months now and seems to been slowly progressing, perhaps more so over the past 2 weeks. On exam I find proximal weakness consistent with myopathy. Moving forward there are a couple of things to consider: First is treatment options. He has had trouble with maintaining sites for IVIG and therefore might benefit from subcutaneous IVIG. So we are going to look into acquiring this and arrangefor inpatient stay to initiate this. Given that he seems to have clotting associated with IVIG in the past, will consider giving aspirin along with IVIG. During hospitalization will repeat muscle biopsy, and review prior slides if still available, to reconsider the diagnosis. His last CK was 3555 on 03/17/14 and will check this again today, along with CBC, CMP, ESR and CRP. The second issue is the concern that he might have an hypercoaguability disorder accounting for the problems with IVIG stated above. Will send labs detailed below. Plan: -Investigate subq IVIG and plan for inpatient stay early next week once the details of this have been worked out. -Plan to repeat muscle biopsy, review prior slides if still available -Labs today: CK, CBC, CMP, ESR, CRP. He says that he recently had a1c checked at PCP, was 7 Labs for ?hypercoagulable state; protein c and s activity, MTHFR mutation, Factor V mutation, prothrombin mutation, antithrombin, lupus anticoagulant. -He will call with any problems in the meantime. Germán Wan MD, PhD Personal Pager #[phone] documented in this encounter Plan of Treatment Upcoming Encounters Date Type Specialty Care Team Description 06/19/2022 Office Visit Rheumatology Richi Blackmon MD [facility] [address] RHEUMATOLOGY [place], [place] [address] (Wo rk) Scheduled Procedures Name Priority Associated Diagnoses Date/Time EGD, UPPER GI ENDOSCOPY Family hx of colon cance r COLONOSCOPY, DIAGNOSTIC Family hx of colon cance r documented as of this encounter Procedures Procedure Name Priority Date/Time Associated Comments Diagnosis PROTHROMBIN MUT Routine 07/02/2014 4:28 PM Thrombosis Result s for this EST procedure are i n the results section. FACTOR 5 MUTATION Routine 07/02/2014 4:28 PM Thrombosis Resu lts for this EST procedure are i n the results section. MTHFR MUTATION Routine 07/02/2014 4:28 PM Thrombosis Results for this EST procedure are i n the results section. MTHFR MUTATION Routine 07/02/2014 4:28 PM Thrombosis EST FACTOR 5 MUTATION Routine 07/02/2014 4:28 PM Thrombosis EST PROTEIN S ACTIVITY Routine 07/02/2014 4:28 PM Thrombosis Res ults for this EST procedure are i n the results section. LUPUS ANTICOAGULANT Routine 07/02/2014 4:28 PM Thrombosis Re sults for this EST procedure are i n the results section. HEMOGRAM Routine 07/02/2014 4:28 PM Thrombosis Results f or this EST procedure are i n the results section. DIFFERENTIAL, Routine 07/02/2014 4:28 PM Thrombosis Results for this AUTOMATED EST procedure are i n the results section. PROTHROMBIN GENE Routine 07/02/2014 4:28 PM Thrombosis MUTATION EST PROTEIN C ACTIVITY Routine 07/02/2014 4:28 PM Thrombosis Res ults for this EST procedure are i n the results section. SEDIMENTATION RATE Routine 07/02/2014 4:28 PM Thrombosis Res ults for this EST procedure are i n the results section. ANTITHROMBIN Routine 07/02/2014 4:28 PM Thrombosis Results f or this EST procedure are i n the results section. CBC (WITH DIFF) Routine 07/02/2014 4:28 PM Thrombosis EST CRP, CARDIAC RISK (HS Routine 07/02/2014 4:28 PM Thrombosis Results for this CRP) EST procedure are i n the results section. CK Routine 07/02/2014 4:28 PM Thrombosis Results f or this EST procedure are i n the results section. COMPREHENSIVE Routine 07/02/2014 4:28 PM Thrombosis Results for this METABOLIC PANEL EST procedure ar e in (NON-FASTING) the results section. documented in this encounter Results Differential, Automated (07/02/2014 4:28 PM EST) P athologist Signature Neutrophils % 62.1 % CERNER MILLENNIUM Neutr Abs (ANC) 3.46 1.50 - CERNER 6.30 MILLENNIUM x10(3)/mcL Lymphocytes % 24.4 % CERNER MILLENNIUM Lymphocytes Abs 1.4 1.0 - 3.6 CERNER x10(3)/mcL MILLENNIUM Monocytes % 8.3 % CERNER MILLENNIUM Monocyte Abs 0.5 0.2 - 1.0 CERNER x10(3)/mcL MILLENNIUM Eosinophils % 4.1 % CERNER MILLENNIUM Eosinophils Abs 0.2 0.0 - 0.5 CERNER x10(3)/mcL MILLENNIUM Basophils % 0.9 % CERNER MILLENNIUM Basophils Abs 0.0 0.0 [...] Location / / Volume Laterality Blood specimen 07/02/2014 4:28 PM 015 4:34 (specimen) EST PM EST Resulting Agency Comment Spec In Lab Marino East MD HEMATOLOGY ORDERABLES Performing Organization Address City/State/[place] [address] CERNER MILLENNIUM (ABNORMAL) Hemogram (07/02/2014 4:28 PM EST) P athologist Signature WBC 5.6 4.0 - 10.0 CERNER x10(3)/mcL MILLENNIUM RBC 3.94 (L) 4.63 - CERNER 6.08 MILLENNIUM x10(6)/mcL Hemoglobin 11.1 (L) 13.7 - CERNER 17.5 gm/dL MILLENNIUM Hematocrit 34.2 (L) 40.0 - CERNER 51.0 % MILLENNIUM MCV 86.8 79.0 - CERNER 92.0 fL MILLENNIUM MCH 28.2 25.6 - CERNER 32.2 pg MILLENNIUM MCHC 32.5 32.0 - CERNER 36.5 gm/dL [facility] Platelets 123 (L) 145 - 370 CERNER x10(3)/mcL MILLENNIUM RDWSD 47.5 (H) 35.0 - CERNER 46.0 fL MILLENNIUM RDWCV 15.0 (H) 10.9 - CERNER 14.4 % [facility] MPV 10.7 9.0 - 12.0 CERNER fL [facility] Specimen Anatomical Collection Method Collection Time Receive d Time (Source) Location / / Volume Laterality Blood specimen 07/02/2014 4:28 PM 015 4:34 (specimen) EST PM EST Resulting Agency Comment Spec In Lab Marino East MD HEMATOLOGY ORDERABLES Performing Organization Address City/State/ZIP Code Phon e Number [place] [phone] [facility] Fact V Mutation (07/02/2014 4:28 PM EST) Component Value Ref Test Analysis Performed At [facility] Range Method Time Signature Factor V Negative KATHYKARLY Leiden [facility] Factor V RESULT: NEGATIVE FOR THE 169 1G>A MUTATION [LEIDEN] OF FACTOR V GENE (([id number]) COLLIN Leiden [id number] [[id number]]). [facility] Interp METHOD: The region of interest in the Factor V gene (G 1691A) is interrogated using a TaqMan allelic discrimination as say. Genomic DNA was isolated from the submitted peripheral blood specimen. Real-time P CR was performed to amplify a short region spanning the mutation site, and genotyping was performed by allelic discrimination using a mixture o f fluorescently labeled probes, one of which is specific for the wild type gene, the other specif ic for the mutant gene. This assay was performed usi ng analyte specific reagents which are regulated by the U.S. Food and Drug Administration. This test was develop ed and its performance characteristics determined by the Molecular Pathology Laboratory at [facility]. This test is used for clinical purposes an d should not be considered as investigational or for research purposes. It has not been cleared or approved by the U.S. Food and Drug Administration. However, as a [employer] licensed laboratory, our facility is approved for such high complexity clinical testing. Comment: [VERIFIED DATE]07.08.14 Verified By:Ada Yee MD Pathologist (Electronic Signature) Specimen Anatomical Collection Method Collection Time Receive d Time (Source) Location / / Volume Laterality Blood specimen 07/02/2014 4:28 PM 015 4:34 (specimen) EST PM EST Resulting Agency Comment Spec In Lab Marino East MD HEMATOLOGY ORDERABLES Performing Organization Address City/[facility] [place] [address] [facility] PT Mut (07/02/2014 4:28 PM EST) Component Value Ref Test Analysis Performed At [facility] Range Method Time Signature Prothrombin Negative CERNER Mutation [facility] Prothrombin RESULT: NEGATIVE FOR THE 202 10G>A MUTATON IN THE 3' UNTRANSLATED REGION OF THE CERNER Mutation PROTHROMBIN GENE (([id number]) [id number]). [facility] Interp METHODS: The region of interest in the Prothrombin gene (202 10G->A) is interrogated using a TaqMan allelic discrimination assay. [facility] DNA was isolated from the submitted peripheral blood specimen. Real- time PCR was performed to amplify a short region span araceli the mutation site, and genotyping was performed by allelic discrimination using a mixture of f luorescently labeled probes, one of which is specific for the wild type g kiran, the other specific for the mutant gene. This assay was performed usi ng analyte specific reagents which are regulated by the U.S. Food and Drug Administration. This test was develop ed and its performance characteristics determined by the Molecular Pathology Laboratory at [facility]. This test is used for clinical purposes an d should not be considered as investigational or for research purposes. It has not been cleared or approved by the U.S. Food and Drug Administration. However, as a [employer] licensed laboratory, our facility is approved for such high complexity clinical testing. Comment: [VERIFIED DATE]07.08.14 Verified By:Ada Yee MD Pathologist (Electronic Signature) Specimen Anatomical Collection Method Collection Time Receive d Time (Source) Location / / Volume Laterality Blood specimen 07/02/2014 4:28 PM 015 4:34 (specimen) EST PM EST Resulting Agency Comment Spec In Lab Marino East MD HEMATOLOGY ORDERABLES Performing Organization Address City/State/[place] [address] CERNER MILLENNIUM MTHFR Mutation (07/02/2014 4:28 PM EST) Component Value Ref Test [facility] Range Method Time Signature MTHFR Heterozygous CERNER Mutation MILLENNIUM Result MTHFR RESULT: HETEROZYGOUS POSITIV E FOR THE 677C>T MUTATION IN THE 5,10-METHYLENE CERNER Mutation TETRAHYDROFOLATE REDUCTASE ( MTHFR) GENE (([id number]) [id number] [facility] [[id number]]). METHOD: The region of interest in the MT HFR gene (C677T) is interrogated using a TaqMan allelic discrimination assay. Genomic DNA was isola manuel from the submitted peripheral blood specimen. Real-time P CR was performed to amplify a short region spanning the mutation site, and genotyping was performed by allelic discrimination using a mixture o f fluorescently labeled probes, one of which is specific for the wild type gene, the other specif ic for the mutant gene. This assay was performed us ng analyte specific reagents which are regulated by the U.S. Food and Drug Administration. This test was develop ed and its performance characteristics determined by the Molecular Pathology Laboratory at [facility]. This test is used for clinical purposes an d should not be considered as investigational or for research purposes. It has not been cleared or approved by the U.S. Food and Drug Administration. However, as a [employer] licensed laboratory, our facility is approved for such high complexity clinical testing. Comment: [VERIFIED DATE]07.08.14 Verified By:Joselito FONSECA, Ada Echeverria Pathologist (Electronic Signature) Specimen Anatomical Collection Method Collection Time Receive d Time (Source) Location / / Volume Laterality Blood specimen 07/02/2014 4:28 PM 015 4:34 (specimen) EST PM EST Resulting Agency Comment Spec In Lab Marino East MD HEMATOLOGY ORDERABLES Performing Organization Address City/State/ZIP Code Phon e Number [address] CERNER MILLENNIUM High Sensitivity CRP (07/02/2014 4:28 PM EST) athologist Signature CRP High Sens 9.1 mg/L CERNER MILLENNIUM Comment: Interpretations: 1) For accurate cardiac risk [...] Cardiovascular Disease. ??Circulatio n 2003; 107:499-511 2. Ridker PM. ??Clinical applications of C-reactive protein for cardiovascular disease detection and prevention. ??Circ ulation 2003; 107:363-369 Specimen Anatomical Collection Method Collection Time Receive d Time (Source) Location / / Volume Laterality Blood specimen 07/02/2014 4:28 PM 015 4:34 (specimen) EST PM EST Resulting Agency Comment Spec In Lab Marino East MD CHEMISTRY ORDERABLES Performing Organization Address City/[facility] Code Phon e Number [address] [facility] Sedimentation rate (07/02/2014 4:28 PM EST) P athologist Signature Sed Rate 53 (H) 0 - 15 CERNER mm/hr [facility] Specimen Anatomical Collection Method Collection Time Receive d Time (Source) Location / / Volume Laterality Blood specimen 07/02/2014 4:28 PM 015 4:34 (specimen) EST PM EST Resulting Agency Comment Spec In Lab Marino East MD HEMATOLOGY ORDERABLES Performing Organization Address [facility] Phon e Number [address] CERNER [facility] (ABNORMAL) CK (07/02/2014 4:28 PM EST) P athologist Signature CK, Total 8,581 (H) 0 - 200 CERNER unit/L MILLENNIUM Specimen Anatomical Collection Method Collection Time Receive d Time (Source) Location / / Volume Laterality Blood specimen 07/02/2014 4:28 PM 015 4:34 (specimen) EST PM EST Resulting Agency Comment Spec In Lab Marino East MD CHEMISTRY ORDERABLES Performing Organization Address City/State/[place] [address] CERNER MILLENNIUM (ABNORMAL) Comprehensive metabolic panel (non-fasting) (07/02/2014 4:28 PM EST) athologist Signature Glucose Lvl 81 60 - 199 CERNER mg/dL MILLENNIUM Comment: Diabetes: >=200 mg/dL plus symp toms BUN 26 (H) 10 - 20 mg/dL CERNER MILLENNIU M Creatinine 1.02 0.80 - 1.50 mg/dL CERNER MILL ENNIUM Comment: Please note that the pediatric reference intervals supplied above were not validated at [facility]. Results from pediatri c patients should be interpreted in conjunction to the patient's age, height and muscle mass. Sodium 141 135 - 145 mmol/L CERNER ELISE NIUM Potassium 4.6 3.5 - 5.0 mmol/L CERNER ELISE NIUM Comment: Please note: ??Patients with WBC >100,00 0 may have falsely elevated Potassium levels. ??For accurate Potassium quantif ication in these patients send serum separator tube (gold top) for subsequent determinations. ??Contact the Clinical Chemistry Laboratory if there are any qu estions. Chloride 105 98 - 107 mmol/L CERNER MILLENN IUM CO2 23 22 - 31 mmol/L CERNER MILLENNI UM Anion Gap 13 5 - 15 mmol/L CERNER MILLENNIU M Calcium 9.3 8.5 - 10.5 mg/dL CERNER ELISE NIUM Total Protein 7.6 6.4 - 8.3 gm/dL CERNER MIL LENNIUM Albumin 3.6 3.2 - 5.2 gm/dL CERNER MILLENN IUM AST 286 (H) 0 - 39 unit/L CERNER MILLENNIU M ALT 313 (H) 0 - 55 unit/L CERNER MILLENNIU M Alk Phos 126 (H) 40 - 120 unit/L CERKARLY GALICIA IUM Total Bilirubin 0.4 0.2 - 1.3 mg/dL COLLIN Montejo ILLENNIUM Bili, Direct 0.1 0.0 - 0.3 mg/dL COLLIN BOOKER ENNIUM Estimated GFR >60 >=60 COLLIN GALICIAIU M Comment: This estimated GFR (eGFR) value [...] the following links into your internet browser. [email or web address] Specimen Anatomical Collection Method Collection Time Receive d Time (Source) Location / / Volume Laterality Blood specimen 07/02/2014 4:28 PM 015 4:34 (specimen) EST PM EST Resulting Agency Comment Spec In Lab Marino East MD CHEMISTRY ORDERABLES Performing Organization Address City/[facility] [place] [address] COLLIN GALICIAIUM Lupus Anticoagulant (07/02/2014 4:28 PM EST) P athologist Signature Lupus Anticoag Neg Neg [facility] Specimen Anatomical Collection Method Collection Time Receive d Time (Source) Location / / Volume Laterality Blood specimen 07/02/2014 4:28 PM 015 4:34 (specimen) EST PM EST Resulting Agency Comment Spec In Lab Marino East MD HEMATOLOGY ORDERABLES Performing Organization Address City/[facility]/ZIP Code Phon e Number [address] [facility] ([facility] Antithrombin (07/02/2014 4:28 PM EST) P athologist Signature Antithrombin 69 (L) 80 - 120 % [facility] FRIDAIUM Specimen Anatomical Collection Method Collection Time Receive d Time (Source) Location / / Volume Laterality Blood specimen 07/02/2014 4:28 PM 015 4:34 (specimen) EST PM EST Resulting Agency Comment Spec In Lab Marino East MD HEMATOLOGY ORDERABLES Performing Organization Address City/[facility]/[place] [address] CERNER MILLENNIUM Protein S Activity (07/02/2014 4:28 PM EST) Analysis Performed At Patho logist Time Signature Protein S Act 79 66 - 139 % CERNER activity MILLENNIUM Specimen Anatomical Collection Method Collection Time Receive d Time (Source) Location / / Volume Laterality Blood specimen 07/02/2014 4:28 PM 015 4:34 (specimen) EST PM EST Resulting Agency Comment Spec In Lab Marino East MD HEMATOLOGY ORDERABLES Performing Organization Address City/[facility]/[place] [address] CERNER MILLENNIUM Protein C activity (07/02/2014 4:28 PM EST) Analysis Performed At Patho logist Time Signature Protein C Act 77 67 - 156 % CERNER activity MILLENNIUM Specimen Anatomical Collection Method Collection Time Receive d Time (Source) Location / / Volume Laterality Blood specimen 07/02/2014 4:28 PM 015 4:34 (specimen) EST PM EST Resulting Agency Comment Spec In Lab Marino East MD HEMATOLOGY ORDERABLES Performing Organization Address City/[facility] Hospital/ZIP [facility] [address] CERNER MILLENNIUM documented in this encounter Visit Diagnoses Diagnosis Thrombosis Embolism and thrombosis of unspecified s ite documented in this encounter Care Teams Cushion Former Relationship Specialty Start Date End Date Jazmine Baer MD PCP - General 11/07/10 [address] [place] [address] documented as of this encounter
--- OUTSIDE RECORDS SUMMARY | 2022-04-11 10:55 | XMS_ITS | Encounter Summary ---
:1960 Author Organization [facility] [place] [address] Care Team Providers Name Role Phone Jazmine Baer MD Primary Care Provider Encounter Details Date Type Department Care Team Description 07/29/2014 Hospital Encounter Laboratory Wilfred Nelson MD Skin rash [facility] [place] [address] NEUROLOGY DEPT. [phone] [place] [id number] (Wo rk) Social History Tobacco Use Types [...] lispro Inject 2-4 Units 10 mL 12 07/13/2014 10/0 12/2015 (HUMALOG) Solution subcutaneously 3 times daily [...] MD [facility]HE[facility]AT[facility] [place], [place] [address] (Wo rk) Scheduled Procedures Name Priority Associated Diagnoses Date/Time EGD, UPPER GI ENDOSCOPY Family hx of colon cance r COLONOSCOPY, DIAGNOSTIC Family hx of colon cance r documented as of this encounter Procedures Procedure Name Priority Date/Time Associated Comments Diagnosis MISCELLANEOUS LAB Routine 07/29/2014 3:40 PM Resu lts for this REQUEST EST procedure are i n the results section. HEPATIC FUNCTION PANEL Routine 07/29/2014 3:40 PM Skin rash Results for this EST procedure are i n the results section. documented in this encounter Results Miscellaneous Lab request (07/29/2014 3:40 PM EST) [facility] gist Method Time Signature [facility] Lab Request CERNER Result received in [facility] lab. Specimen Anatomical Collection Method Collection Time Receive d Time (Source) Location / / Volume Laterality Blood specimen Venous Draw / 07/29/2014 3:40 PM 2014 4:50 (specimen) Unknown EST PM EST Resulting Agency Comment Spec In Lab Wilfred Nelson MD HEMATOLOGY ORDERABLES Performing Organization Address City/[facility]/[place] [address] CERNER MILLENNIUM (ABNORMAL) Hepatic Function Panel (07/29/2014 3:40 PM EST) P athologist Signature Total Protein 8.9 (H) 6.4 - 8.3 CERNER gm/dL MILLENNIUM Albumin 3.9 3.2 - 5.2 CERNER gm/dL MILLENNIUM AST 361 (H) 0 - 39 CERNER unit/L MILLENNIUM ALT 367 (H) 0 - 55 CERNER unit/L MILLENNIUM Alk Phos 113 40 - 120 CERNER unit/L MILLENNIUM Total 0.6 0.2 - 1.3 CERNER Bilirubin mg/dL MILLENNIUM Bili, Direct 0.1 0.0 - 0.3 CERNER mg/dL MILLENNIUM Specimen Anatomical Collection Method Collection Time Receive d Time (Source) Location / / Volume Laterality Blood specimen 07/29/2014 3:40 PM 015 4:01 (specimen) EST PM EST Resulting Agency Comment Spec In Lab Wilfred Nelson MD CHEMISTRY ORDERABLES Performing Organization Address City/[facility]/[place] [address] CERNER MILLENNIUM documented in this encounter Visit Diagnoses Diagnosis Skin rash Rash and other nonspecific skin eruption documented in this encounter Care Teams Project Consultant Relationship Specialty Start Date End Date Jazmine Baer MD PCP - General 11/07/10 [address] [place] [address] documented as of this encounter
--- OUTSIDE RECORDS SUMMARY | 2022-04-11 10:55 | XMS_ITS | Encounter Summary ---
:1960 Author Organization [facility] [place] [place] [address] Care Team Providers Name Role Phone Samantha Baer MD Primary Care Provider Reason for Referral Consultation (Routine) - Closed Specialty Diagnoses / Procedures Referred By Contact Refer red To Contact Hematology and Oncology Diagnoses Myopathy Chris Verduzco MD [facility] [place] [phone] Fax: Referral ID Status Reason Start Date Expiration Date Visits V isits Requested Authorized [id number] Closed Consult, 08/19/2014 08/19/2015 3 3 Test & Treat Encounter Details Date Type Department Care Team Description 08/17/2014 - Hospital Encounter 3 [facility] Fiona Joe Myopathy 08/19/2014 [facility] [place] [phone] Social History Tobacco Use Types Packs/Day Years [...] Sign Reading Time Taken Comments Blood Pressure 107/65 08/19/2014 11:34 AM EDT Pulse 74 08/19/2014 11:34 AM EDT Temperature 36.9 ??C (98.4 ??F) 08/19/2014 11:34 AM EDT Respiratory Rate 16 08/19/2014 11:34 AM EDT Oxygen Saturation 100% 08/19/2014 11:34 AM EDT Inhaled Oxygen Concentration - - Weight 104.3 kg (230 lb) 08/18/2014 4:59 PM EDT Height 175.3 cm (5' 9) 08/18/2014 4:59 PM EDT Body Mass Index 33.97 08/18/2014 4:59 PM EDT documented in this encounter Discharge Instructions Patient InstructionsChris Verduzco 08/19/2014 2:02 PM EDT You were admitted to the neurology service at [facility]. Your diagnosis: Statin induced autoimmune myopathy Medication Changes: Stop taking Cellcept (Mycophenolate) Patient Instructions: ??? Call your doctor or seek medical attention if you have ??? weakness or numbness in your face or one of your limbs or difficulty speaking ??? loss of vision ??? seizures or loss of consciousness ??? Diet: we recommend a heart healthy diet: low fat, low cholesterol, low concentrated sweets. ??? Activity Restrictions: as tolerated ??? Driving Restrictions: Recommend no driving ??? Home oxygen therapy: none needed ??? Anticoagulation Follow-up and Instructions: none FOLLOWUP APPOINTMENT: You will have an outpatient followup appointment in the neurology clinic at [facility]. If not already listed in this document, we will contact you to schedule this appointment. -- If 1 week passes by after you are discharged and you still do not have an appointment, please call [phone]. Future Appointments Provider Department Dept Phone 09/09/2014 10:45 AM Akash Prieto MD Rheumatology [phone] Joint Appt Res, Rheumatology Nurse Rheumatology [phone] 02/11/2015 9:30 AM Ultrasound Rm 4 [facility] RAD ULTRASOUND [phone] 02/11/2015 11:30 AM Anastasia Mccauley MD Gastroenterology [phone] documented in this encounter Medications at Time [...] documented as of this encounter Progress Notes Chris Verduzco - 08/19/2014 4:11 PM EDT While reviewing patient's medications, it was found that the patient received 2 doses of Cellcept contrary to the intended plan. The medication was stopped immediately. There was no known harm to the patient. The patient only received two unintedned doses. The team will follow up the patient and also investigate further. Chris Verduzco MD Janny Pierce RN - 08/19/2014 3:53 PM EDT Office of Care Management Clinical Computer Assembler (CRC) Janny Pierce RN, BSN -CRC Neurology/ENT Voice Mail [phone] Pager [phone] #[phone] DISCHARGE PLANNING: Met with patient and his . He is dressed and ready for d/c. He does not want VNA support. The team is recommending a walker for home. His friend will get him one tonight. P: plan d/chome now, no other d/c needs have been identified. Chanelle Osei, PT - 08/19/2014 3:20 PM EDT Physical Therapy Treatment Note Visit #2 Patient profile: Pt is a 54 year old male with statin induced autoimmune myopathy who was adm 08/17/2014 by Fiona Mcbride DO with progressive muscle weakness. Weakness has been refractory to multiple treatments, including prednisone, MTX and multiple cycles of IVIG. PMH: Past Medical History Diagnosis Date ??? Diabetes ??? Hypertension ??? Hyperlipidemia ??? Gout ??? Obesity ??? Kidney stone ??? 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 Shingles 2009 ??? DM II (diabetes mellitus, type II), controlled ??? Cirrhosis Past Surgical History Procedure Laterality Date ??? Umbilical hernia repair ??? Ureter stent placement renal stent ??? Tunneled venous port placement Jun 2012 ??? Tunneled venous port placement ??? Bone marrow aspiration w/bx through same incision/site 05/28/2013 ([facility]) BONE MARROW ASP PERFORMED W/BX THRU BX INCISION performed by Alem Evangelista MD at [facility] ??? Bone marrow bx, needle/trocar 05/28/2013 ([facility]) BONE MARROW,BIOPSY performed by Alem Evangelista MD at [facility] OSC ??? Muscle biopsy 2008 ??? Lithotripsy ??? Tunneled venous port placement 2011 ??? Colonoscopy, diagnostic 07/21/2013 COLONOSCOPY, DIAGNOSTIC performed by Royer Temple MD at [facility] ENDOSCOPY ??? Endoscopic us exam, esoph 07/21/2013 UPPER EUS- ENDOSCOPIC ULTRASOUND performed by Royer Temple MD at [facility] ENDOSCOPY ??? Upper gi endoscopy, biopsy 07/21/2013 UPPER GASTROINTESTINAL ENDOSCOPY,WITH BIOPSY SINGLE OR MULTIPLE performed by Royer Temple MD at [facility] ENDOSCOPY Social History: Patient is disabled and lives with his Bethanie in a two story home in [place], [place]. 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 Pt enters home via basement withfull flight of stairs and 2 rails to get to main living level. Bathroom includes raised toilet seat and stall shower. Pt has shower chair available. Pt's is available to provide 24/7 assist if needed. Stairs: 3 without a rail to enter - of note pt reports that stairs are low, 3 inch rise Baseline Mobility: Disabled since 2009; ambulates primarily without use of assistive device but willoccasionally use SC; drives when feeling well but has not been driving since prior admission to [facility]; has baseline decreased functional endurance. Equipment at home: SC, raised toilet seat, cancer registry coordinator, sock aid, grab bar Precautions/Special Considerations: contact (cdiff pending), at risk to fall Staff Communication/Mobility Recommendations:recommend at least 3 walks/day with nursing supervision S: I think I better use the walker rather than the cane. O: Pt seen for functional mobility activities and therapeutic exercises this afternoon. Vitals: Last value Range last 8 hrs Temperature Temp: 36.9 ??C (98.4 ??F) Temp: [36.7 ??C (98.1 ??F)-36.9 ??C (98.4 ??F)] Heart Rate Heart Rate: 74 Heart Rate: [64-74] Blood Pressure BP: 107/65 mmHg BP: (107-130)/(65) Respiratory Rate Resp: 16 Resp: [16-20] SpO2 SpO2: 100 % SpO2: [99 %-100 %] Mental Status/Behavior: Alert & oriented x4, pleasant & cooperative Pain: reports chronic LBP, tolerable during eval ROM: WFL in frnacis UEs and LEs Neuromuscular: RIGHT LEFT HIP Flexion 2/5 2/5 Abduction 5/5 5/5 Adduction 2/5 2/5 KNEE Flexion 3+/5 4/5 Extension 4+/5 4+/5 ANKLE Dorsiflexion 5/5 5/5 Plantarflexion 5/5 5/5 Bed Mobility: supine->sit EOB on L with HOB elevated ~30 degrees, use of bedrail, and handheld assist, increased effort noted Balance: Sitting balance: WFL Standing balance: WFL with walker support for standing, transfers, and gait; able to maintain staticstanding with feet apart->together x30 sec, increased sway with feet together, able to maintain feet apart EC x20 sec with increased sway; requires walker support for dynamic activities such as marching, heel/toe raises, hip abd, hip ext, and knee flex Therex: Standing at walker: marching, hip ext, hip abd, knee flex, and heel/toe raises Transfers: sit<->stand with SBA with bed at lowest position, requires use of francis UEs Gait: Ambulated ~200 ft with SBA using FWW, gait slow but steady; Discussed safe technique for negotiating stairs with railing and step-to pattern, advising pt to be sure he has family member providingCG assist. Education: The pt has been educated on Bed mobility, Transfers, Assistive device/technique, Exercise, Safety , Gait , Activity pacing/Energy conservation, Role of therapy, Balance and Discharge planning and verbalizes and demonstrates understanding Assessment: Pt demonstrates steady gait using FWW but remains weak with no improvement in strength compared to yesterday. Pt has difficulty getting in/out of bed and recommended he get a bedrail. Pt also will benefit from a FWW or rollator and reports that his son has access to one and his PCP has also been working on getting him a 4WW prior to this admission. Discussed safety and recommendation thatpt use walker at all times instead of his cane at this time. Pt will also benefit from further PT upon d/c. He prefers to have outpatient PT rather than have home PT services despite recommendation forhome services. He reports that he has referral for outpatient PT from prior (recent) admission. Goals: To be achieved by 08/23/14 - all ongoing 1. Pt. to demonstrate knowledge of energy conservation strategies and to appropriately integrate such strategies into functional mobility tasks. 2. Pt. to demonstrate understanding of appropriate exercises. 3. Pt. to perform bed mobility with independent without bed rail and with HOB flat. 4. Pt. to perform sit to stand transfers with independent with increased time utilizing a no assistive device. 5. Pt. to ambulate >150 feet with least restrictive device and independent with increased time. 6. Pt. to ambulate up/down 14 step/stairs with supervision, using one railing. 7. Family or caregiver to demonstrate understanding of therapeutic interventions to support the careof the patient. Plan: Pt to be seen 3-5x per week for therapy including Bed mobility, Transfers, Assistive device/technique, Stairs, Safety , Gait , Activity pacing/Energy conservation, Role of therapy, Balance and Discharge planning and pt /family/caregiver education. Equipment needs: rolling walker, pt prefers 4WW and will have access to one through son's connectionand his PCP has also been working on getting him one, educated pt on how to fit properly for walker;pt will also benefit from a bedrail to assist him with bed mobility, he declines a hospital bed Discharge Recommendations:Recommend home PT services but pt states that he plans to have outpatient PT instead as he has referral from recent admission Total time spent with patient: 38 minutes Total timed interventions: 38 minutes Pager: [phone] Chanelle Osei, NIYAH 08/19/2014 Physical Therapy Rehabilitation Department Chris Verduzco - 08/19/2014 7:00 AM EDT Neurology Progress Note Patient Name: Bucky Acevedo Admit Date: 08/17/2014 Attending: Patient ID: Bucky Acevedo is a 54 y.o. male with statin induced autoimmune myopathy, who presents with progressive muscle weakness. Active Issues: Secondary Problems: Interval History: No acute events, overnight. No bowel movements, overnight. Patient reports feeling essentially the same, today. Rituximab was started, last night, and was well-tolerated. Medications: No current facility-administered medications on file prior to encounter. Current Outpatient Prescriptions on File Prior to Encounter Medication Sig Dispense Refill ??? mycophenolate (CELLCEPT) 250 mg Capsule Take 4 capsules by mouth 2 times daily. Follow titrationschedule 60 capsule 3 ??? insulin glargine (LANTUS) Solution Inject 25 Units subcutaneously nightly. (Patient taking differently: Inject 75 Units subcutaneously nightly.) 10 mL 12 ??? enoxaparin (LOVENOX) 40 mg/0.4 mL Syringe Inject 0.4 mLs subcutaneously daily. Administer this one day prior, the days of, and the day after your IVIG infusions. 20 Syringe 3 ??? insulin glargine (LANTUS) Solution Inject 25 Units subcutaneously every morning. ??? multivitamin Capsule Take 1 capsule by mouth daily. ??? ferrous sulfate 325 mg (65 mg iron) Tablet Take 1 tablet by mouth 2 times daily. 60 tablet 12 ??? omeprazole (PRILOSEC) 40 mg capsule Take [...] Take 50 mg by mouth daily. ??? traMADol (ULTRAM) 50 mg tablet Take 100 mg by mouth 2 times daily. ??? insulin lispro (HUMALOG) Solution Inject 2-4 Units subcutaneously 3 times daily (with meals). (Patient taking differently: Inject 10-12 Units subcutaneously 3 times daily (with meals).) 10 mL 12 Physical Exam: Vitals: Temp: [36.6 ??C (97.9 ??F)-36.9 ??C (98.4 ??F)] Heart Rate: [61-68] Resp: [16-20] BP: (106-145)/(56-71) SpO2: [96 %-99 %] Gen: Patient of apparent stated age, well nourished, well developed, awake, alert, NAD Ext: No edema. No bony deformity Neuro Exam: MS: AAOx4, clear language, no dysarthria, follows commands CN: PERRL, EOMI Facial sensation intact, no facial asymmetry Hearing intact to finger rub Palate elevates symmetrically, tongue protrudes midline SCM and trap strength intact Motor: Normal bulk and tone. UE: 4/5 R, 4-/5 L Arm abduction at shoulder 4/5 R, 4-/5 L Elbow extension 5/5 R, 4/5 L Elbow flexion 5/5 R, 5/5 L Thumb abduction (APB) 5/5 R, 5/5 L Finger abduction LE: 2/5 R, 2/5 L Hip flexion 4/5 R, 4/5 L Knee extension 4/5 R, 4/5 L Knee flexion 5/5 R, 5/5 L Foot dorsiflexion 5/5 R, 5/5 L Foot plantar flexion Reflexes: DTRs absent R, absent L Biceps absent R, absent L Patellar absent R, absent L Achilles tendon Coordination: Finger to nose intact though could only reach 1-2 feet from his face 2/2 weakness, no dysmetria Labs: Recent Results (from the past 24 hour(s)) POCT GLUCOSE Result Value Ref Range POC Glucose 107 60 - 199 mg/dL POCT GLUCOSE Result Value Ref Range POC Glucose 115 60 - 199 mg/dL POCT GLUCOSE Result Value Ref Range POC Glucose 116 60 - 199 mg/dL POCT GLUCOSE Result Value Ref Range POC Glucose 250 (*) 60 - 199 mg/dL POCT GLUCOSE Result Value Ref Range POC Glucose 207 (*) 60 - 199 mg/dL Diagnostic Tests and Imaging: Assessment / Plan: Bucky Acevedo is a 54 y.o. with statin induced autoimmune myopathy, who presents with progressivemuscle weakness. Based on history and exam, abdominal muscles and those involved in hip flexion appear severely affected, although there is also diminished strength in legs and UE, bilaterally. The patient's symptoms have been refractory to multiple modalities of treatment, and we will admit the patient to Neurology to initiate rituximab. Update for 08/19/14: the patient is essentially the same, this AM, as on admission. Rituximab was started, last night, and was well-tolerated. We will plan to discharge, today, with outpatient follow-up. Further rituximab will be coordinated as outpatient. He reports having had no more diarrhea, overnight. Clostridium difficile test is pending. # - Discharge, today - Patient to follow up as outpatient - Further rituximab will be coordinated as outpatient. - Patient to follow up with outpatient physical therapy # FULL code Chris Verduzco MD General Neurology [id number] Associated attestation - Fiona Whiting DO - 08/19/2014 8:29 PM EDT Neurology Staff Note I have reviewed the above resident's history during the visit and I agree with the details as written. My physical examination confirms the resident's findings. The assessment and plan were formulated in discussion with me at the time of the visit and I agree with them as documented. Rituximab has been started, and the patient feels well. No side effects. Diarrhea has resolved. Examfairly stable. Pt will be discharged today, as he is stable, and will f/u as an outpatient. DO Luba Cardona David R - 08/18/2014 6:50 AM EDT Neurology Progress Note Patient Name: Bucky Acevedo Admit Date: 08/17/2014 Attending: Patient ID: Bucky Acevedo is a 54 y.o. male with statin induced autoimmune myopathy, who presents with progressive muscle weakness. Active Issues: Secondary Problems: Interval History: No acute events, overnight, although the patient reported he had 4 liquid BMs. Medications: No current facility-administered medications on file prior to encounter. Current Outpatient Prescriptions on File Prior to Encounter Medication Sig Dispense Refill ??? mycophenolate (CELLCEPT) 250 mg Capsule Take 4 capsules by mouth 2 times daily. Follow titrationschedule 60 capsule 3 ??? insulin glargine (LANTUS) Solution Inject 25 Units subcutaneously nightly. (Patient taking differently: Inject 75 Units subcutaneously nightly.) 10 mL 12 ??? enoxaparin (LOVENOX) 40 mg/0.4 mL Syringe Inject 0.4 mLs subcutaneously daily. Administer this one day prior, the days of, and the day after your IVIG infusions. 20 Syringe 3 ??? insulin glargine (LANTUS) Solution Inject 25 Units subcutaneously every morning. ??? multivitamin Capsule Take 1 capsule by mouth daily. ??? ferrous sulfate 325 mg (65 mg iron) Tablet Take 1 tablet by mouth 2 times daily. 60 tablet 12 ??? omeprazole (PRILOSEC) 40 mg capsule Take [...] Take 50 mg by mouth daily. ??? traMADol (ULTRAM) 50 mg tablet Take 100 mg by mouth 2 times daily. ??? insulin lispro (HUMALOG) Solution Inject 2-4 Units subcutaneously 3 times daily (with meals). (Patient taking differently: Inject 10-12 Units subcutaneously 3 times daily (with meals).) 10 mL 12 Physical Exam: Vitals: Temp: [36.8 ??C (98.2 ??F)-37.2 ??C (99 ??F)] Heart Rate: [62-69] Resp: [14-18] BP: (124-157)/(52-68) SpO2: [95 %-100 %] Gen: Patient of apparent stated age, well nourished, well developed, awake, alert, NAD Ext: No edema. No bony deformity Neuro Exam: MS: AAOx4, clear language, no dysarthria, follows commands CN: PERRL, EOMI Facial sensation intact, no facial asymmetry Hearing intact to finger rub Palate elevates symmetrically, tongue protrudes midline SCM and trap strength intact Motor: Normal bulk and tone. UE: 4/5 R, 4-/5 L Arm abduction at shoulder 4/5 R, 4-/5 L Elbow extension 5/5 R, 4/5 L Elbow flexion 5/5 R, 5/5 L Thumb abduction (APB) 5/5 R, 5/5 L Finger abduction LE: 2/5 R, 2/5 L Hip flexion 4/5 R, 4/5 L Knee extension 4/5 R, 4/5 L Knee flexion 5/5 R, 5/5 L Foot dorsiflexion 5/5 R, 5/5 L Foot plantar flexion Reflexes: DTRs absent R, absent L Biceps absent R, absent L Patellar absent R, absent L Achilles tendon Coordination: Finger to nose intact though could only reach 1-2 feet from his face 2/2 weakness, no dysmetria Labs: Recent Results (from the past 24 hour(s)) POCT GLUCOSE Result Value Ref Range POC Glucose 91 60 - 199 mg/dL URINALYSIS WITH MICROSCOPIC Result Value Ref Range Glucose UA Negative Negative mg/dL Protein UA Negative Negative mg/dL Bilirubin UA Negative Negative mg/dL Urobilinogen UA Normal Normal mg/dL pH UA 5.0 5.0 - 8.0 Blood UA Negative Negative mg/dL Ketones UA Negative Negative mg/dL Nitrite UA Negative Negative Leukocytes UA Small (*) Negative mcL Appearance UA Clear Clear Spec [place] UA 1.018 1.002 - 1.030 Color UA Yellow Yellow RBC UA 3 0 - 3 /HPF WBC UA 6 (*) 0 - 3 /HPF Squam Epith UA <1 <=4 /HPF Hyaline Cast UA 1 0 - 2 /LPF BASIC METABOLIC PANEL (NON-FASTING) Result Value Ref Range Glucose Lvl 125 60 - 199 mg/dL BUN 26 (*) 10 - 20 mg/dL Creatinine 0.98 0.80 - 1.50 mg/dL Sodium 136 135 - 145 mmol/L Potassium 3.9 3.5 - 5.0 mmol/L Chloride 101 98 - 107 mmol/L CO2 21 (*) 22 - 31 mmol/L Anion Gap 14 5 - 15 mmol/L Calcium 8.8 8.5 - 10.5 mg/dL Estimated GFR >60 >=60 CALCIUM Result Value Ref Range Calcium 8.8 8.5 - 10.5 mg/dL MAGNESIUM Result Value Ref Range Magnesium 0.67 (*) 0.69 - 1.07 mmol/L PHOSPHORUS Result Value Ref Range Phosphorus 3.0 2.5 - 4.5 mg/dL HEPATIC FUNCTION PANEL Result Value Ref Range Total Protein 7.3 6.1 - 8.0 gm/dL Albumin 3.0 (*) 3.2 - 5.2 gm/dL AST 225 (*) 0 - 39 unit/L ALT 233 (*) 0 - 55 unit/L Alk Phos 88 40 - 120 unit/L Total Bilirubin 0.4 0.2 - 1.3 mg/dL Bili, Direct 0.1 0.0 - 0.3 mg/dL PROTHROMBIN TIME Result Value Ref Range PT 15.1 12.5 - 15.5 sec INR 1.1 0.9 - 1.1 HEMOGRAM Result Value Ref Range WBC 5.8 4.0 - 10.0 x10(3)/mcL RBC 3.47 (*) 4.63 - 6.08 x10(6)/mcL Hemoglobin 10.6 (*) 13.7 - 17.5 gm/dL Hematocrit 31.4 (*) 40.0 - 51.0 % MCV 90.5 79.0 - 92.0 fL MCH 30.5 25.6 - 32.2 pg MCHC 33.8 32.0 - 36.5 gm/dL Platelets 144 (*) 145 - 370 x10(3)/mcL RDWSD 56.5 (*) 35.0 - 46.0 fL RDWCV 17.2 (*) 10.9 - 14.4 % MPV 10.5 9.0 - 12.0 fL DIFFERENTIAL, AUTOMATED Result Value Ref Range Neutrophils % 57.9 Neutr Abs (ANC) 3.38 1.50 - 6.30 x10(3)/mcL Lymphocytes % 23.3 Lymphocytes Abs 1.4 1.0 - 3.6 x10(3)/mcL Monocytes % 12.8 Monocyte Abs 0.8 0.2 - 1.0 x10(3)/mcL Eosinophils % 5.5 Eosinophils Abs 0.3 0.0 - 0.5 x10(3)/mcL Basophils % 0.3 Basophils Abs 0.0 0.0 - 0.2 x10(3)/mcL Immature Gran % 0.20 Tamara Gran Abs 0.01 0.00 - 0.05 x10(3)/mcL POCT GLUCOSE Result Value Ref Range POC Glucose 111 60 - 199 mg/dL POCT GLUCOSE Result Value Ref Range POC Glucose 89 60 - 199 mg/dL POCT GLUCOSE Result Value Ref Range POC Glucose 107 60 - 199 mg/dL Diagnostic Tests and Imaging: Assessment / Plan: Bucky Acevedo is a 54 y.o. with statin induced autoimmune myopathy, who presents with progressivemuscle weakness. Based on history and exam, abdominal muscles and those involved in hip flexion appear severely affected, although there is also diminished strength in legs and UE, bilaterally. The patient's symptoms have been refractory to multiple modalities of treatment, and we will admit the patient to Neurology to initiate rituximab. Update for 08/18/14: the patient is essentially the same, this AM, as on admission. He reports continued diarrhea, and we will test for C. Diff. We will discuss, today, a plan for trial of rituximab, and in the meantime we will continue current medications. # -admit to neurology, floor level of care -neuro check & vitals q4h - Continue Cellcept 1000 mg BID - Consider trial of rituximab. 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 #DM - Continue home insulin regimen - Lantus 25 mg QAM + 75 mg QHS - Novolog (substitute for patient's home Humalog) 10-12 units TID with meals #HTN -Continue home medications Lisinopril-HCTZ 50-25 mg QAM Atenolol 50 mg QHS #Pain -Continue home tramadol 100 mg BID PRN # prophylaxis -lovenox 40mg SC daily -RBOs -SCDs # supportive care -carb controlled diet -tylenol PRN -up with assistance # FULL code Chris Verduzco MD Vascular Neurology [id number] General Neurology [id number] General Neurology Consult [id number] Associated attestation - Fiona Whiting DO - 08/19/2014 5:57 AM EDT Neurology Staff Note I have reviewed the above resident's history during the visit and I agree with the details as written. My physical examination confirms the resident's findings. The assessment and plan were formulated in discussion with me at the time of the visit and I agree with them as documented. Will initiate Rituximab today. Fiona Whiting DO documented in this encounter H&P Notes Chris Verduzco - 08/17/2014 2:12 PM EDT Neurology Admission History and Physical Patient name: Bucky Acevedo Date of : 1960 PCP: SAMANTHA BAER MD CC: progressive muscle weakness HPI: Bucky Acevedo is a 54 y.o. male with statin induced autoimmune myopathy, diagnosed in 2008. His symptoms have included pain and progressive muscle weakness. Muscle biopsy has been consistent with necrotizing myopathy. His disease has been refractory to multiple treatments, including prednisone, MTXand multiple cycles of IVIG. For detailed clinical history of the patient's disease, please see the clinic note of 08/17/14 (today), by Ruperto Mcclellan MD. The patient's past medical history is also significant for DM, HORTON, Durand's esophagus. On interview, recently weakness in his legs, hips and arms has been getting worse. Pain is 4/10 in the lower back. His hands go numb during sleep. His legs will feel heavy, and transfers have become more difficult. Things have been getting worse since June. Walking up stair has become more difficult. Lately he needs his to walk behind him and lift his legs. He can walk with a cane, the farthest he can walk without pausing is around 50 yards. Past Medical & Surgical History: Past Medical History Diagnosis Date ??? Diabetes ??? Hypertension ??? Hyperlipidemia ??? Gout ??? Obesity ??? Kidney stone ??? 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 Shingles 2009 ??? DM II (diabetes mellitus, type II), controlled ??? Cirrhosis Past Surgical History Procedure Laterality Date ??? Umbilical hernia repair ??? Ureter stent placement renal stent ??? Tunneled venous port placement Jun 2012 ??? Tunneled venous port placement ??? Bone marrow aspiration w/bx through same incision/site 05/28/2013 ([facility]) BONE MARROW ASP PERFORMED W/BX THRU BX INCISION performed by Alem Evangelista MD at [facility] ??? Bone marrow bx, needle/trocar 05/28/2013 ([facility]) BONE MARROW,BIOPSY performed by Alem Evangelista MD at [facility] ??? Muscle biopsy 2008 ??? Lithotripsy ??? Tunneled venous port placement 2011 ??? Colonoscopy, diagnostic 07/21/2013 COLONOSCOPY, DIAGNOSTIC performed by Royer Temple MD at [facility] ??? Endoscopic us exam, esoph 07/21/2013 UPPER EUS- ENDOSCOPIC ULTRASOUND performed by Royer Temple MD at [facility] ??? Upper gi endoscopy, biopsy 07/21/2013 UPPER GASTROINTESTINAL ENDOSCOPY,WITH BIOPSY SINGLE OR MULTIPLE performed by Royer Temple MD at [facility] Home Medications: No current facility-administered medications on file prior to encounter. Current Outpatient Prescriptions on File Prior to Encounter Medication Sig Dispense Refill ??? mycophenolate (CELLCEPT) 250 mg Capsule Take 4 capsules by mouth 2 times daily. Follow titrationschedule 60 capsule 3 ??? insulin glargine (LANTUS) Solution Inject 25 Units subcutaneously nightly. (Patient taking differently: Inject 75 Units subcutaneously nightly.) 10 mL 12 ??? enoxaparin (LOVENOX) 40 mg/0.4 mL Syringe Inject 0.4 mLs subcutaneously daily. Administer this one day prior, the days of, and the day after your IVIG infusions. 20 Syringe 3 ??? insulin glargine (LANTUS) Solution Inject 25 Units subcutaneously every morning. ??? multivitamin Capsule Take 1 capsule by mouth daily. ??? ferrous sulfate 325 mg (65 mg iron) Tablet Take 1 tablet by mouth 2 times daily. 60 tablet 12 ??? omeprazole (PRILOSEC) 40 mg capsule Take [...] Take 50 mg by mouth daily. ??? traMADol (ULTRAM) 50 mg tablet Take 100 mg by mouth 2 times daily. ??? insulin lispro (HUMALOG) Solution Inject 2-4 Units subcutaneously 3 times daily (with meals). (Patient taking differently: Inject 10-12 Units subcutaneously 3 times daily (with meals).) 10 mL 12 Allergy: Allergies Allergen Reactions ??? Methotrexate Hives, Itching and Rash ??? Morphine Itching ??? Adehjtq-Jhr-Ivh Reductase Inhibitors Myopathy Family History: Family History Problem Relation Age of Onset ??? Colorectal Cancer Mother 59 ??? Diabetes Mother ??? Myocardial Infarction Father first SD at 36 ??? Coronary Artery Disease Father ??? Stomach Cancer uncle ??? Obesity Mother ??? Hypertension Father ??? Hyperlipidemia Father ??? Type 2 Diabetes Paternal Uncle ??? Obesity Sister ??? Type 2 Diabetes Sister ??? 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 Review of systems: Constitutional: No fevers or chills, currently, subjective fever 1 week ago Eyes: No vision changes, no diplopia, no blurry vision ENT: No rhinorrhea or pharyngitis, no meningismus CV: No chest pain or palpitations Resp: + dry cough, no shortness of breath GI: + nausea yesterday, no vomiting, diarrhea yesterday : No dysuria, no incontinence Heme: No bleeding, bruises easily Endo: No polyuria or cold intolerance Neuro: See HPI Psych: No depression, wakes frequently during the night for the last month [x] Review of systems otherwise negative Physical Exam: Vitals: BP Temp Temp src Pulse Resp SpO2 Height Weight 08/17/14 1640 157/68 mmHg 37.2 ??C (99 ??F) Oral 69 18 100 % 174 cm (5' 8.5) 104.7 kg (230 lb 13.2 oz) Gen: Patient of apparent stated age, well nourished, well developed, awake, alert, NAD CV: + S1, S2, RRR, no murmur Resp: CTA B/L Abd: +normoactive bowel sounds, soft, +midline tenderness Ext: No edema. No bony deformity Neuro Exam: MS: AAOx4, clear language, no dysarthria, follows commands CN: PERRL, EOMI Facial sensation intact, no facial asymmetry Hearing intact to finger rub Palate elevates symmetrically, tongue protrudes midline SCM and trap strength intact Motor: Normal bulk and tone. Difficulty sitting up and rolling over, 2/2 weakness UE: 4/5 R, 4-/5 L Arm abduction at shoulder 4/5 R, 4-/5 L Elbow extension 5/5 R, 5/5 L Elbow flexion 5/5 R, 5/5 L Rv Repair Technician 5/5 R, 5/5 L Thumb abduction (APB) 5/5 R, 5/5 L Finger abduction LE: 3/5 R, 3/5 L Hip flexion 4/5 R, 4/5 L Knee extension 4/5 R, 4/5 L Knee flexion 5/5 R, 5/5 L Foot dorsiflexion 5/5 R, 5/5 L Foot plantar flexion Sensation: Intact to light touch, temperature, and vibration throughout Reflexes: DTRs 1+ R, 1+ L Biceps absent R, absent L Brachioradialis absent R, absent L Patellar absent R, absent L Achilles tendon Toes - R mute, L mute Coordination: Finger to nose intact though could only reach 1-2 feet from his face 2/2 weakness, no dysmetria Rapid alternating movements slowed Gait: Not tested, though patient able to stand and maintain balance briefly Labs: No results found for this or any previous visit (from the past 24 hour(s)). Diagnostic Tests and Imaging: Assessment / Plan: Bucky Acevedo is a 54 y.o. male with statin induced autoimmune myopathy, who presents with progressive muscle weakness. Based on history and exam, abdominal muscles and those involved in hip flexionappear severely affected, although there is also diminished strength in legs and UE, bilaterally. The patient's symptoms have been refractory to multiple modalities of treatment, and we will admit the patient to Neurology to initiate rituximab. # -admit to neurology, floor level of care -neuro check & vitals q4h - Continue Cellcept 1000 mg BID - Consider trial of rituximab. 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 #DM - Continue home insulin regimen - Lantus 25 mg QAM + 75 mg QHS - Novolog (substitute for patient's home Humalog) 10-12 units TID with meals #HTN -Continue home medications Lisinopril-HCTZ 50-25 mg QAM Atenolol 50 mg QHS #Pain -Continue home tramadol 100 mg BID PRN # prophylaxis -lovenox 40mg SC daily -RBOs -SCDs # supportive care -carb controlled diet -tylenol PRN -up with assistance # FULL code Chris Verduzco MD Pager [phone] Vascular Neurology 4233 General Neurology 4751 General Neurology Consult [id number] Associated attestation - Fiona Whiting DO - 08/18/2014 11:09 AM EDT Neurology Staff Note I have reviewed the above resident's history during the visit and I agree with the details as written. My physical examination confirms the resident's findings. The assessment and plan were formulated in discussion with me at the time of the visit and I agree with them as documented. Fiona Whiting DO documented in this encounter Miscellaneous Notes Plan of Care - Whitney Franz RN - 08/19/2014 2:06 AM EDT Problem: General Plan of Care Goal: Plan of Care Review Outcome: Ongoing (Interventions Implemented as Appropriate) 08/18/14 0213 08/18/14 2300 08/19/14 0154 Plan of Care Review Plan of Care Outcome Status outcome achieved -- -- Progress -- -- progress toward functional goals as expected Coping/Psychosocial Response Interventions Plan of Care Reviewed with -- patient -- OUTCOME EVALUATION NOTE: OUTCOME SUMMARY: Patient AOx4, c/o chronic back/RLE pain denies need for prn tramadol at this time. Patient declines Masimo. OOB w/1-assist and walker to bathroom. No BM this shift, awaiting cdiff results, contact precautions maintained. Rituxan gtt started this shift per protocol (see MAR), infusing at 100mL/hr because of pt report of being a hard stick and PIV access, did not want to increase gtt any further. No s/sx of reaction to rituxan gtt. paged for fingerstick orders. Turns self independently in bed. Noacute events overnight. Call light in reach, will continue to monitor and report any acute changes. PLAN MOVING FORWARD: -PT/OT -Continue w/rituxan treatments? Neuro pt -Promote independence/involvement in ADLs -Manage and control pain INDIVIDUALIZED FALL PREVENTION: Assistance: 1-assist w/walker when OOB; turns self independently Supervision: Reliably summons help Surveillance: Call light in reach, room near nurse's station, hourly rounding, declines Wilbert CPG OUTCOME EVALUATION: Goal: Individualization and Mutuality Outcome: Ongoing (Interventions Implemented as Appropriate) 08/17/141699 Mutuality/Individual Preferences What anxieties, fears or concerns do you have about your health or care? none What questions do you have about your health or care? none What information would help us give you more personalized care? none Goal: Fall Prevention-Safe Patient Handling Outcome: Ongoing (Interventions Implemented as Appropriate) 08/18/14229908/18/142354 Safety Interventions Safety Precautions/Fall Reduction environmental modification;fall reduction program maintained;lighting adjusted for task/safety;low bed;nonskid shoes/slippers when out of bed;room near unit station -- Musculoskeletal Interventions Activity/Level of Assistance up in room;ambulated;with walker;with 1-person assist -- Positioning -- independent Activity and Safety Assistive Device Front wheel walker -- Peralta Fall Risk History of Falling 25 -- Secondary Diagnosis 15 -- Ambulatory Aids 15 -- Intravenous Therapy/Heparin/Saline Lock 20 -- Gait/Transferring 10 -- Mental Status 0 -- Score 85 -- OTHER Peralta Fall Risk High -- Goal: Infection Control Outcome: Ongoing (Interventions Implemented as Appropriate) 08/18/14229908/18/142354 Coping/Psychosocial Response Interventions Counseling calming techniques promoted;emotional support provided;reassurance provided;relaxation techniques promoted -- Safety Interventions Isolation Precautions -- standard precautions maintained;contact precautions maintained Infection Prevention bronchial hygiene promoted;environmental surveillance;blood glucose management;hydration promoted;nutrition promoted;promote handwashing;rest/sleep promoted -- Goal: Discharge Needs Assessment Outcome: Ongoing (Interventions Implemented as Appropriate) 08/17/14169908/19/14 0154 Discharge Needs Assessment Concerns to be Addressed -- basic needs concerns Readmission Within the Last 30 Days -- no previous admission in last 30 days Equipment Needed After Discharge -- none Current Health Anticipated Changes Related to Illness -- none Self-Care Equipment Currently Used at Home -- none Living Environment Transportation Available car;family or friend will provide -- Problem: Pain, Acute (Adult, Obstetrics) Goal: Identify Signs and Symptoms and Related Risk Factors Signs and symptoms and related risk factors are identified upon initiation of Human Response Clinical Practice Guideline (CPG) Outcome: Outcome (s) achieved Date Met: 08/19/14 08/19/14153 Pain, Acute Related Risk Factors (Acute Pain) comorbidities;disease process;fatigue;knowledge deficit;stress Signs and Symptoms (Acute Pain) alteration in muscle tone;BADLs/IADLs reluctance/inability to perform;constipation/diarrhea;facial mask of pain/grimace;fatigue/weakness Goal: Acceptable Pain Control/Comfort Level Patient will demonstrate the desired outcomes. Outcome: Ongoing (Interventions Implemented as Appropriate) 08/19/14153 Pain, Acute (Adult, Obstetrics) Acceptable Pain Control/Comfort Level making progress toward outcome Problem: Skin Integrity Impairment, Risk/Actual (Adult, Obstetrics) Goal: Identify Signs and Symptoms and Related Risk Factors Signs and symptoms and related risk factors are identified upon initiation of Human Response Clinical Practice Guideline (CPG) Outcome: Outcome (s) achieved Date Met: 08/19/14 08/19/14153 Skin Integrity Impairment, Risk/Actual Physiological Related Risk Factors (Skin Integrity Impairment, Risk/Actual) metabolic/endocrine imbalance Treatment Related Related Risk Factors (Skin Integrity Impairment, Risk/Actual) medication Goal: Skin Integrity/Wound Healing Patient will demonstrate the desired outcomes. Outcome: Ongoing (Interventions Implemented as Appropriate) 08/19/14153 Skin Integrity Impairment, Risk/Actual (Adult, Obstetrics) Skin Integrity/Wound Healing making progress toward outcome Plan of Care - Dannielle Ybarra RN - 08/18/2014 6:51 PM EDT Problem: General Plan of Care Goal: Plan of Care Review Outcome: Ongoing (Interventions Implemented as Appropriate) 08/18/14 0213 08/18/14 0900 Plan of Care Review Plan of Care Outcome Status outcome achieved -- Coping/Psychosocial Response Interventions Plan of Care Reviewed with -- patient OUTCOME EVALUATION NOTE: OUTCOME SUMMARY: Pt arrived on unit at 1700 from [address]. Report received from Alem Reis RN. Pt A&Ox4. Oriented pt to room and call howe system. Pt denies pain at this time. Lung sounds clear/diminished on RA. Assessment coincides with that of Alem Reis RN. Will notify MD of any changes. PLAN MOVING FORWARD: Maintain adequate pain control. Pt safety. Ritaximab treatment tomorrow. INDIVIDUALIZED FALL PREVENTION: Assistance: 1 assist with walker. Supervision: purposeful hourly rounding Surveillance: kris. CPG OUTCOME EVALUATION: Goal: Infection Control 08/18/14 09 Coping/Psychosocial Response Interventions Counseling goal setting facilitated;emotional support provided Safety Interventions Isolation Precautions standard precautions maintained Infection Prevention blood glucose management;nutrition promoted;promote handwashing;rest/sleep promoted;hydration promoted;environmental surveillance Plan of Care - Alem Reis RN - 08/18/2014 4:27 PM EDT Problem: General Plan of Care Goal: Plan of Care Review Outcome: Ongoing (Interventions Implemented as Appropriate) 08/18/14 0213 08/18/14899 Plan of Care Review Plan of Care Outcome Status outcome achieved -- Coping/Psychosocial Response Interventions Plan of Care Reviewed with -- patient OUTCOME EVALUATION NOTE: OUTCOME SUMMARY: Pt calm, cooperative this shift. Loose stool x2 this morning, contact precautions initiated and C. Difficile screen sent to lab- awaiting results. Pain controlled with PRN pain medications- see MAR Pt requiring single room- transferred to [facility], report called to RN all questions answered Medications and ritaximab protocol, for RN reference if initiated, tubed to [address]. PLAN MOVING FORWARD: Maintain safety, maintain adequate pain control Plasmapheresis or ritaximab treatment INDIVIDUALIZED FALL PREVENTION: Assistance: 1 assist with walker/cane when transferring/ambulating Supervision: Purposeful hourly rounding, q4 vitals/FSBG Surveillance: Masimo, bed/chair alarm CPG GOAL OUTCOME EVALUATION: Goal: Individualization and Mutuality Outcome: Ongoing (Interventions Implemented as Appropriate) 08/17/14 1700 Mutuality/Individual Preferences What anxieties, fears or concerns do you have about your health or care? none What questions do you have about your health or care? none What information would help us give you more personalized care? none Goal: Fall Prevention-Safe Patient Handling Outcome: Ongoing (Interventions Implemented as Appropriate) 08/18/14 0800 08/18/14 0900 08/18/14 1600 Safety Interventions Safety Precautions/Fall Reduction -- bed alarm;commode/urinal/bedpan at bedside;elopement precautions initiated;environmental modification;fall reduction program maintained;lighting adjusted for task/safety;low bed;muscle strengthening facilitated;nonskid shoes/slippers when out of bed;sensory aid -- Musculoskeletal Interventions Activity/Level of Assistance -- -- with 1-person assist;with walker Positioning up in chair -- -- Activity and Safety Assistive Device -- -- Cane;Front wheel walker Peralta Fall Risk History of Falling -- 25 -- Secondary Diagnosis -- 15 -- Ambulatory Aids -- 15 -- Intravenous Therapy/Heparin/Saline Lock -- 20 -- Gait/Transferring -- 10 -- Mental Status -- 0 -- Score -- 85 -- OTHER Peralta Fall Risk -- High -- Goal: Infection Control Outcome: Ongoing (Interventions Implemented as Appropriate) 08/18/14 0900 Coping/Psychosocial Response Interventions Counseling goal setting facilitated;emotional support provided Safety Interventions Isolation Precautions standard precautions maintained Infection Prevention blood glucose management;nutrition promoted;promote handwashing;rest/sleep promoted;hydration promoted;environmental surveillance Goal: Discharge Needs Assessment Outcome: Ongoing (Interventions Implemented as Appropriate) 08/17/14 1700 Living Environment Transportation Available car;family or friend will provide Initial Assessments - Brianna Fox OT - 08/18/2014 2:48 PM EDT Occupational Therapy Evaluation Patient profile: Bucky Acevedo is a 54 y.o. 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 Past Medical History Diagnosis Date ??? Diabetes ??? Hypertension ??? Hyperlipidemia ??? Gout ??? Obesity ??? Kidney stone ??? 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 Shingles 2009 ??? DM II (diabetes mellitus, type II), controlled ??? Cirrhosis Past Surgical History Procedure Laterality Date ??? Umbilical hernia repair ??? Ureter stent placement renal stent ??? Tunneled venous port placement Jun 2012 ??? Tunneled venous port placement ??? Bone marrow aspiration w/bx through same incision/site 05/28/2013 ([facility]) BONE MARROW ASP PERFORMED W/BX THRU BX INCISION performed by Alem Evangelista MD at [facility] ??? Bone marrow bx, needle/trocar 05/28/2013 ([facility]) BONE MARROW,BIOPSY performed by Alem Evangelista MD at [facility] ??? Muscle biopsy 2008 ??? Lithotripsy ??? Tunneled venous port placement 2011 ??? Colonoscopy, diagnostic 07/21/2013 COLONOSCOPY, DIAGNOSTIC performed by Royer Temple MD at [facility] ??? Endoscopic us exam, esoph 07/21/2013 UPPER EUS- ENDOSCOPIC ULTRASOUND performed by Royer Temple MD at [facility] ??? Upper gi endoscopy, biopsy 07/21/2013 UPPER GASTROINTESTINAL ENDOSCOPY,WITH BIOPSY SINGLE OR MULTIPLE performed by Royer Temple MD at [facility] Social History: Patient lives in [place], [place] with his of 35 years, who cares for someone at home (more cognitively disabled vs physically disabled per pt), but she recently broke her left arm so she cannot physically assist pt. Home Setup: 4 shallow steps to enter without a rail from garage to the basement level, flight to main living level, then can stay on that level, has a walk-in shower. 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 Pt reports he tries to do as much as he can without assistance. Pt usually ambulates with no device in thehome and shorter distances but uses a cane for longer distances. The last few days before admission pt was using a cane more consistently. On prior admission, pt reported 2 falls in the last 6 months, one in which he slipped on ice and the other more recently with this decline. Pt reports that he has not fallen since his last admission at [facility]. Code Status: Full Code Activity Orders:up with assistance Precautions: at risk to fall, proximal weakness, contact precautions (c-diff pending) Subjective: My PCP wants me to use a walker now. Objective: Seen today for OT evaluation in collaboration with PT. 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 Carpal tunnel Activities of Daily Living: Self-feeding: Able to feed himself, using utensils appropriately Hygiene grooming: pt reports independent Upper and lower body dressing and bathing: ?? LB dressing: able to don socks by bending forward, increased effort, has a sockaid at home; donned slip on shoes with supervision, has a cancer registry coordinator to don pants if needed ?? Recommend seated shower Toileting: Toilet Transfer: SBA with grab bar Toilet Hygiene: Not tested Functional Mobility: Supine to sit: not observed, reports easier with trapeze Sit to stand: CGA with FWW Ambulation: pt ambulated >150' with FWW and CGA Stand to sit: CGA Balance: static standing with FWW and CGA, ambulating with CGA and FWW IADL???s: has assist if needed Endurance: Information taken from last recorded vitals in flowsheet. 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 Education: Patient has been educated on Role of occupational therapy/rehabilitation, Transfers, Assistive device/technique, ADL, Exercise, Positioning, Safety, Precautions/Protocol, Functional Mobility, Activity pacing/Energy conservation, Home Management, Balance, Recommendations and Discharge planning and verbalizes understanding. Patient status, treatment, and mobility recommendations discussed with nursing. Assessment: Pt presents with progressive weakness with ongoing management of statin induced autoimmune myopathy. Pt presents with mildly improved UE strength compared to prior admission, though increased weakness in proximal LE's. Pt is mobilizing better with FWW and is agreeable to continuing to use a walker. Pt can manage most of his ADL's with adaptive techniques, but will benefit from ongoing education re: energy conservation/adaptive techniques. Pt would benefit from ongoing OT services to maximize functional independence. Recommendations: Equipment needs at discharge: ? FWW Discharge Recommendations: Recommend home OT and PT (if possible); pt has an outpatient referral on last admission and did not follow up Other Recommendations: none Goals: To be achieved by d/c: 1. Patient will be independent with UE and LE dressing with adaptive techniques/energy conservation strategies. 2. Patient will be distant supervision for simple meal prep with least restrictive device. 3. Patient will be independent with toileting. 4. Patient will demonstrate understanding of environmental modifications to maximize safety and efficiency at home. 5. Patient will demonstrate understanding of energy conservation techniques. Plan: Pt to be seen 2-4 times per week for therapy including Role of occupational therapy/rehabilitation, Transfers, Assistive device/technique, Adaptive equipment training, ADL, Exercise, Breathing exercises, Positioning, Safety, Precautions/Protocol, Functional Mobility, Activity pacing/Energy conser vation, Home Management, Balance, Recommendations, Family training and Discharge planning Eval Date: 08/18/2014 Total time spent with patient: 35 minutes for initial evaluation Total timed interventions: 0 minutes Pager: [phone] Brianna Fox OT 08/18/2014 Occupational Therapy Rehabilitation Department Initial Assessments - Chanelle Osei, PT - 08/18/2014 2:31 PM EDT Physical Therapy Neuro Evaluation Patient profile: Pt is a 54 year old male with statin induced autoimmune myopathy who was adm 08/17/2014 by Fiona Mcbride DO with progressive muscle weakness PMH: Past Medical History Diagnosis Date ??? Diabetes ??? Hypertension ??? Hyperlipidemia ??? Gout ??? Obesity ??? Kidney stone ??? 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 Shingles 2009 ??? DM II (diabetes mellitus, type II), controlled ??? Cirrhosis Past Surgical History Procedure Laterality Date ??? Umbilical hernia repair ??? Ureter stent placement renal stent ??? Tunneled venous port placement Jun 2012 ??? Tunneled venous port placement ??? Bone marrow aspiration w/bx through same incision/site 05/28/2013 ([facility]) BONE MARROW ASP PERFORMED W/BX THRU BX INCISION performed by Alem Evangelista MD at [facility] ??? Bone marrow bx, needle/trocar 05/28/2013 ([facility]) BONE MARROW,BIOPSY performed by Alem Evangelista MD at [facility] ??? Muscle biopsy 2008 ??? Lithotripsy ??? Tunneled venous port placement 2011 ??? Colonoscopy, diagnostic 07/21/2013 COLONOSCOPY, DIAGNOSTIC performed by Royer Temple MD at [facility] ??? Endoscopic us exam, esoph 07/21/2013 UPPER EUS- ENDOSCOPIC ULTRASOUND performed by Royer Temple MD at [facility] ??? Upper gi endoscopy, biopsy 07/21/2013 UPPER GASTROINTESTINAL ENDOSCOPY,WITH BIOPSY SINGLE OR MULTIPLE performed by Royer Temple MD at [facility] Social History: Patient is disabled and lives with his Bethanie in a two story home in [place], [place]. 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 Pt enters home via basement withfull flight of stairs and 2 rails to get to main living level. Bathroom includes raised toilet seat and stall shower. Pt has shower chair available. Pt's is available to provide 24/7 assist if needed. Stairs: 3 without a rail to enter - of note pt reports that stairs are low, 3 inch rise Baseline Mobility: Disabled since 2009; ambulates primarily without use of assistive device but willoccasionally use SC; drives when feeling well but has not been driving since prior admission to [facility]; has baseline decreased functional endurance. Equipment at home: SC, raised toilet seat, cancer registry coordinator, sock aid, grab bar Precautions/Special Considerations: contact (cdiff pending), at risk to fall Staff Communication/Mobility Recommendations: able to ambulate with CG assist using FWW S: I got up on my own earlier today because there was no one around. O: Pt seen for initial evaluation in collaboration with OT. Vitals: Last value Range last 8 hrs Temperature Temp: 36.9 ??C (98.4 ??F) Temp: [36.9 ??C (98.4 ??F)] Heart Rate Heart Rate: 66 Heart Rate: [66] Blood Pressure BP: 130/56 mmHg BP: (130-145)/(56) Respiratory Rate Resp: 16 Resp: [16] SpO2 SpO2: 98 % SpO2: [98 %] Communication: WNL Mental Status/Behavior: Alert & oriented x4, cooperative Pain: reports chronic LBP, tolerable during eval Sensation: WFL, although reports that he has had numbness in hands which reportedly is related to sleeping Vision/Perception: WFL Skin/Soft Tissue: unremarkable ROM: WFL in francis UEs and LEs Neuromuscular: RIGHT LEFT HIP Flexion 2/5 2/5 Abduction 5/5 5/5 Adduction 2/5 2/5 KNEE Flexion 3+/5 4/5 Extension 4+/5 4+/5 ANKLE Dorsiflexion 5/5 5/5 Plantarflexion 5/5 5/5 Bed Mobility: n/a, pt reports that he used trapeze to get out of bed earlier today Balance: Sitting balance: WFL Standing balance: WFL with walker support for standing, transfers, and gait Transfers: sit<->stand with contact guard assist with increased effort, use of francis UEs Gait: Ambulated ~150 ft with contact guard assist using FWW, gait slow but steady Informed Consent: The pt understands and agrees to the PT treatment plan and goals. Education: The pt has been educated on Transfers, Assistive device/technique, Safety , Gait , Activity pacing/Energy conservation and Role of therapy and verbalizes and demonstrates understanding Assessment: Pt is a 54 year old male admitted with progressive muscle weakness. Pt is limited by proximal>distal weakness in francis UEs and LEs. Recommended pt use walker at all times and to pace himself to avoid excessive fatigue. Also recommend contact guard assist for safety at this time. Pt will benefit from ongoing therapeutic interventions as outlined below to achieve the following goals Goals: To be achieved by 08/23/14 1. Pt. to demonstrate knowledge of energy conservation strategies and to appropriately integrate such strategies into functional mobility tasks. 2. Pt. to demonstrate understanding of appropriate exercises. 3. Pt. to perform bed mobility with independent without bed rail and with HOB flat. 4. Pt. to perform sit to stand transfers with independent with increased time utilizing a no assistive device. 5. Pt. to ambulate >150 feet with least restrictive device and independent with increased time. 6. Pt. to ambulate up/down 14 step/stairs with supervision, using one railing. 7. Family or caregiver to demonstrate understanding of therapeutic interventions to support the careof the patient. Plan: Pt to be seen 3-5x per week for therapy including Bed mobility, Transfers, Assistive device/technique, Stairs, Safety , Gait , Activity pacing/Energy conservation, Role of therapy, Balance and Discharge planning and pt /family/caregiver education. Equipment needs: TBD Discharge Recommendations:Patient would benefit from continued therapeutic interventions 2-3 times aweek as provided in a home environment to progress toward functional goals. Total time spent with patient: 35 minutes Total timed interventions: 0 minutes Pager: [phone] Chanelle Osei, PT 08/18/2014 Physical Therapy Rehabilitation Department Discharge Summary - Chris Verduzco - 08/18/2014 8:12 AM EDT Discharge Summary Patient Name: Bucky Acevedo Patient Age: 54 y.o. Language: Portuguese Race: White Ethnicity: Not nor Admit Date: 08/17/2014 Discharge Date: 08/19/14 Attending Physician: No att. providers found Discharge Physician: Fiona Whiting, Follow-up Recommendations for Providers: 1. Follow up pending Clostridium difficile test. Inpatient Provider Contact Information: For questions regarding this document or issues related to this hospitalization on the Neurology Service, please contact the author(s) of this discharge summary through the [facility] Contact Agent . Discharge Diagnoses (Hospital Problems) and Secondary Diagnoses (Chronic Problems): Primary Diagnosis: Statin induced autoimmune myopathy Secondary Diagnosis: There are no hospital problems to display for this patient. Active Non-Hospital Problems Diagnosis ??? Durand's esophagus ??? Nonalcoholic steatohepatitis (HORTON) ??? Anemia ??? Hepatosplenomegaly ??? Nausea and vomiting ??? Diabetes mellitus type II ??? Myopathy Past Medical History Diagnosis Date ??? Diabetes ??? Hypertension ??? Hyperlipidemia ??? Gout ??? Obesity ??? Kidney stone ??? 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 Shingles 2010 ??? DM II (diabetes mellitus, type II), controlled ??? Cirrhosis History of Presentation: Bucky Acevedo is a 54 y.o. with statin induced autoimmune myopathy, diagnosed in 2008. His symptoms have included pain and progressive muscle weakness. Muscle biopsy has been consistent with necrotizing myopathy. His disease has been refractory to multiple treatments, including prednisone, MTX and multiple cycles of IVIG. For detailed clinical history of the patient's disease, please see the clinic note of 08/17/14 (today), by Ruperto Mcclellan MD. The patient's past medical history is also significant for DM, HORTON, Durand's esophagus. On interview, recently weakness in his legs, hips and arms has been getting worse. Pain is 4/10 in the lower back. His hands go numb during sleep. His legs will feel heavy, and transfers have become more difficult. Things have been getting worse since June. Walking up stair has become more difficult. Lately he needs his to walk behind him and lift his legs. He can walk with a cane, the farthest he can walk without pausing is around 50 yards. Physical Exam at Admission Vitals: BP Temp Temp src Pulse Resp SpO2 Height Weight 08/17/14 1640 157/68 mmHg 37.2 ??C (99 ??F) Oral 69 18 100 % 174 cm (5' 8.5) 104.7 kg (230 lb 13.2 oz) Gen: Patient of apparent stated age, well nourished, well developed, awake, alert, NAD CV: + S1, S2, RRR, no murmur Resp: CTA B/L Abd: +normoactive bowel sounds, soft, +midline tenderness Ext: No edema. No bony deformity Neuro Exam: MS: AAOx4, clear language, no dysarthria, follows commands CN: PERRL, EOMI Facial sensation intact, no facial asymmetry Hearing intact to finger rub Palate elevates symmetrically, tongue protrudes midline SCM and trap strength intact Motor: Normal bulk and tone. Difficulty sitting up and rolling over, 2/2 weakness UE: 4/5 R, 4-/5 L Arm abduction at shoulder 4/5 R, 4-/5 L Elbow extension 5/5 R, 5/5 L Elbow flexion 5/5 R, 5/5 L Rv Repair Technician 5/5 R, 5/5 L Thumb abduction (APB) 5/5 R, 5/5 L Finger abduction LE: 3/5 R, 3/5 L Hip flexion 4/5 R, 4/5 L Knee extension 4/5 R, 4/5 L Knee flexion 5/5 R, 5/5 L Foot dorsiflexion 5/5 R, 5/5 L Foot plantar flexion Sensation: Intact to light touch, temperature, and vibration throughout Reflexes: DTRs 1+ R, 1+ L Biceps absent R, absent L Brachioradialis absent R, absent L Patellar absent R, absent L Achilles tendon Toes - R mute, L mute Coordination: Finger to nose intact though could only reach 1-2 feet from his face 2/2 weakness, no dysmetria Rapid alternating movements slowed Gait: Not tested, though patient able to stand and maintain balance briefly Hospital Course: Bucky Acevedo was admitted to the neurology services for further evaluation. Basic labs were significant for mild anemia, hyperglycemia and several other minor abnormalities that did not affect management. On the first night of admission, outpatient Cellcept was continued. On the second day of admission, the patient received his first dose of rituximab. Rituximab was well-tolerated. The patient reported that his symptoms remained essentially the same during his admission. His neurological exam was also essentially the same on discharge as on admission. The patient will follow up with Neurology as an outpatient and further rituxmiab treatment will be coordinated in the outpatient setting. The patient reported, on admission, that he had been having diarrhea. Clostridium difficile test wassent, and this result is pending. The patient was evaluated by Rehabilitation Services and deemed appropriate for discharge to home with PT/OT. PT also indicated the patient should have a walker at home for safety. The patient's familyreportedly insisted on leaving, and said they had a friend from whom they could borrow a walker. Operations/Major Procedures: none Consultations 1. PT/OT Diagnostic Tests & Neuroimaging: Date Study Results 08/17/14 ECG Normal sinus rhythm Left ventricular hypertrophy Abnormal ECG When compared with ECG of 05-JUL-2009 18:35, No significant change was found CXR CT Head MRI BRAIN EEG Labs: Recent Labs 08/17/141934 WBC 5.8 HGB 10.6* PLATELET 144* Recent Labs 08/17/141934 NA 136 K 3.9 CL 101 CO2 21* BUN 26* CREATININE 0.98 GLUCOSE 125 Results for BUCKY ACEVEDO ( ) as of 08/19/2014 14:04 Ref. Range 08/18/2014 17:03 08/18/2014 21:08 08/18/2014 23:57 08/19/2014 06:41 08/19/2014 11:38 POC Glucose Latest Range: 60-199 mg/dL 115 116 250 (H) 207 (H) 187 Pending Studies and Lab Data: Clostridium difficile test Vital Signs at Discharge: BP: 107/65 mmHg, Heart Rate: 74, Temp: 36.9 ??C (98.4 ??F), Resp: 16, BMI (Calculated): 34 Height: 175.3 cm (5' 9) (08/18/14 1659) Weight - Scale: 104.327 kg (230 lb) (08/18/14 1659) Functional and Cognitive Status: Cognitive status at baseline. Functional status limited by progressive muscle weakness Physical Exam at Discharge: Vitals: Temp: [36.6 ??C (97.9 ??F)-36.9 ??C (98.4 ??F)] Heart Rate: [61-68] Resp: [16-20] BP: (106-145)/(56-71) SpO2: [96 %-99 %] Gen: Patient of apparent stated age, well nourished, well developed, awake, alert, NAD Ext: No edema. No bony deformity Neuro Exam: MS: AAOx4, clear language, no dysarthria, follows commands CN: PERRL, EOMI Facial sensation intact, no facial asymmetry Hearing intact to finger rub Palate elevates symmetrically, tongue protrudes midline SCM and trap strength intact Motor: Normal bulk and tone. UE: 4/5 R, 4-/5 L Arm abduction at shoulder 4/5 R, 4-/5 L Elbow extension 5/5 R, 4/5 L Elbow flexion 5/5 R, 5/5 L Thumb abduction (APB) 5/5 R, 5/5 L Finger abduction LE: 2/5 R, 2/5 L Hip flexion 4/5 R, 4/5 L Knee extension 4/5 R, 4/5 L Knee flexion 5/5 R, 5/5 L Foot dorsiflexion 5/5 R, 5/5 L Foot plantar flexion Reflexes: DTRs absent R, absent L Biceps absent R, absent L Patellar absent R, absent L Achilles tendon Coordination: Finger to nose intact though could only reach 1-2 feet from his face 2/2 weakness, no dysmetria Discharge Conditions/Prognosis: Progressive muscle weakness secondary to statin induced autoimmune myopathy Discharge to: Home Updated Allergies/ADRs: Allergies Allergen Reactions ??? Methotrexate Hives, Itching and Rash ??? Morphine Itching ??? Dqrxocg-Mco-Uth Reductase Inhibitors Myopathy Immunizations Given this Hospitalization: Immunization History Administered Date(s) Administered ??? Hepatitis B Vaccine, Adult 01/27/2014, 08/10/2014 ??? Influenza Vaccine, Whole 04/23/2006, 03/10/2009 ??? Pneumococcal Polyvalent 23 08/13/2014 Discharge Medications: Your Medications Continued medications with new dosing Dose Details insulin lispro Soln Commonly known as: humaLOG Inject 2-4 Units subcutaneously 3 times daily (with meals). What changed: how much to take 2-4 Units Quantity: 10 mL Refills: 12 * insulin glargine Soln Commonly known as: LANTUS Inject 25 Units subcutaneously nightly. What changed: how much to take 25 Units Quantity: 10 mL Refills: 12 * LANTUS Soln Inject 25 Units subcutaneously every morning. Generic drug: insulin glargine What changed: Another medication with the same name was changed. Make sure you understand how and when to take each. 25 Units Refills: 0 * Notice: This list has 2 medication(s) that are the same as other medications prescribed for you. Read the directions carefully, and ask your doctor or other care provider to review them with you. Continued medications, unchanged Dose Details atenolol 100 mg Tab Commonly known as: TENORMIN Take 50 mg by mouth daily. 50 mg Refills: 0 enoxaparin 40 mg/0.4 mL Syrg Commonly known as: LOVENOX Inject 0.4 mLs subcutaneously daily. Administer this one day prior, the days of, and the day after your IVIG infusions. 40 mg Quantity: 20 Syringe Refills: 3 ferrous sulfate 325 mg (65 mg iron) Tab Take 1 tablet by mouth 2 times daily. 325 mg Quantity: 60 tablet Refills: 12 indomethacin 25 mg Cap Commonly known as: INDOCIN Take 25 mg by mouth 2 times daily (with meals). As needed 25 mg Refills: 0 lisinopril-hydrochlorothiazide 20-12.5 mg Tab Commonly known as: PRINZIDE;ZESTORETIC Take 2 tablets by mouth daily. 2 tablet Refills: 0 multivitamin Cap Take 1 capsule by mouth daily. 1 capsule Refills: 0 omeprazole 40 mg Cpdr Commonly known as: PRILOSEC Take 1 capsule by mouth daily. 40 mg Quantity: 90 capsule Refills: 3 ondansetron 4 mg Tab Commonly known as: ZOFRAN Take 1 tablet by mouth as needed. 4 mg Quantity: 20 tablet Refills: 3 traMADol 50 mg Tab Commonly known as: ULTRAM Take 100 mg by mouth 2 times daily. 100 mg Refills: 0 STOPPED Medications mycophenolate 250 mg Cap Commonly known as: CELLCEPT Smoking Status at Discharge: Instructions Given to Patient at Discharge: Patient Instructions You were admitted to the neurology service at [facility]. Your diagnosis: Statin induced autoimmune myopathy Medication Changes: Stop taking Cellcept (Mycophenolate) Patient Instructions: ??? Call your doctor or seek medical attention if you have ??? weakness or numbness in your face or one of your limbs or difficulty speaking ??? loss of vision ??? seizures or loss of consciousness ??? Diet: we recommend a heart healthy diet: low fat, low cholesterol, low concentrated sweets. ??? Activity Restrictions: as tolerated ??? Driving Restrictions: Recommend no driving ??? Home oxygen therapy: none needed ??? Anticoagulation Follow-up and Instructions: none FOLLOWUP APPOINTMENT: You will have an outpatient followup appointment in the neurology clinic at [facility]. If not already listed in this document, we will contact you to schedule this appointment. -- If 1 week passes by after you are discharged and you still do not have an appointment, please call [phone]. Future Appointments Provider Department Dept Phone 09/09/2014 10:45 AM Akash Prieto MD Rheumatology [phone] Joint Appt Res, Rheumatology Nurse Rheumatology [phone] 02/11/2015 9:30 AM Ultrasound Rm 4 [facility] RAD ULTRASOUND [phone] 02/11/2015 11:30 AM Anastasia Mccauley MD Gastroenterology [phone] General Instructions None Future Appointments and Orders Future Appointments Provider Department Dept Phone 08/30/2014 2:00 PM Braeden Barriga MD Neurology [phone] 08/30/2014 2:00 PM Ruperto Mcclelaln MD Neurology [phone] 09/09/2014 10:45 AM Akash Prieto MD Rheumatology [phone] Joint Appt Res, Rheumatology Nurse Rheumatology [phone] 02/11/2015 9:30 AM Ultrasound Rm 4 [facility] ULTRASOUND [phone] 02/11/2015 11:30 AM Anastasia Mccauley MD Gastroenterology [phone] Future Orders Complete By Expires Referral to Hematology and Oncology [REF33 Custom] As directed Process Instructions: If no progress note charted, please enter Clinical details in comments. Scheduling Instructions: Comments: Questions: My question or request is: Continuation of Rituxan inpatient with autoimmune myositis. Request Dr. Zamora Future Appointments Date Time Provider Department Center 08/30/2014 2:00 PM Braeden Barriga MD [facility] 08/30/2014 2:00 PM Ruperto Mcclellan MD [facility] 09/09/2014 10:45 AM Akash Prieto MD [facility] Rheum [facility] 02/11/2015 9:30 AM Ultrasound Rm 4 [facility] None 02/11/2015 11:30 AM Anastasia Mccauley MD [facility] Gastro [facility] Primary Care Provider: SAMANTHA BAER MD [address] / [place] [address] Discharge References/Attachments None Plan of Care - Afua San RN - 08/18/2014 5:06 AM EDT OUTCOME EVALUATION NOTE: OUTCOME SUMMARY: Bucky was admitted due to muscular weakness, he denies numbness and tingling, denies pain. He is able to Walk to the bathroom with 1 assist especially from getting out and back into bed due to his inability to lift his legs off the bed. He requires a cane/walker when he walks. He had BM 3x of loose, brownish stool PLAN MOVING FORWARD: Monitor progress of weakness, INDIVIDUALIZED FALL PREVENTION: Assistance: 1 person assist, use of Trapeze Supervision: RN/BRYAN Surveillance: Fall precaution, Masimo, hourly purposeful rounding CPG GOAL OUTCOME EVALUATION: Problem: General Plan of Care Goal: Plan of Care Review Outcome: Ongoing (Interventions Implemented as Appropriate) 08/18/14212 Plan of Care Review Plan of Care Outcome Status outcome achieved Coping/Psychosocial Response Interventions Plan of Care Reviewed with patient Goal: Individualization and Mutuality Outcome: Ongoing (Interventions Implemented as Appropriate) 08/17/141699 Mutuality/Individual Preferences What anxieties, fears or concerns do you have about your health or care? none What questions do you have about your health or care? none What information would help us give you more personalized care? none Goal: Fall Prevention-Safe Patient Handling Outcome: Ongoing (Interventions Implemented as Appropriate) 08/17/14199908/18/14212 Safety Interventions Safety Precautions/Fall Reduction -- bed alarm;fall reduction program maintained Musculoskeletal Interventions Activity/Level of Assistance -- up ad darin Activity and Safety Assistive Device -- Cane Peralta Fall Risk History of Falling 25 -- Secondary Diagnosis 15 -- Ambulatory Aids 15 -- Intravenous Therapy/Heparin/Saline Lock 20 -- Gait/Transferring 10 -- Mental Status 0 -- Score 85 -- OTHER Peralta Fall Risk High -- Goal: Infection Control 08/18/14212 Safety Interventions Isolation Precautions standard precautions maintained Infection Prevention blood glucose management Goal: Discharge Needs Assessment Outcome: Ongoing (Interventions Implemented as Appropriate) 03/10/15 1700 Living Environment Transportation Available car;family or friend will provide Plan of Care - Afua San RN - 08/18/2014 1:33 AM EDT Problem: General Plan of Care Goal: Plan of Care Review Outcome: Ongoing (Interventions Implemented as Appropriate) Goal: Individualization and Mutuality Outcome: Ongoing (Interventions Implemented as Appropriate) Goal: Discharge Needs Assessment Outcome: Ongoing (Interventions Implemented as Appropriate) 08/17/14 1700 Living Environment Transportation Available car;family or friend will provide documented in this encounter Plan of Treatment Upcoming Encounters Date Type Specialty Care Team Description 06/19/2022 Office Visit Rheumatology Richi Blackmon MD [facility] [address] [facility]AT[facility] [place] [address] (Wo rk) Scheduled Procedures Name Priority Associated Diagnoses Date/Time EGD, UPPER GI ENDOSCOPY Family hx of colon cance r COLONOSCOPY, DIAGNOSTIC Family hx of colon cance r Scheduled Referrals Name Type Priority Associated Order Schedule Diagnoses Referral to Outpatient Referral Routine Myopathy Ordered: Hematology and 08/19/2014 Oncology documented as of this encounter Procedures Procedure Name Priority Date/Time Associated Comments Diagnosis POCT GLUCOSE Routine 08/19/2014 11:38 Results for this AM EDT procedure are i n the results section. POCT GLUCOSE Routine 08/19/2014 6:41 AM Results f or this EDT procedure are i n the results section. POCT GLUCOSE Routine 08/18/2014 11:57 Results for this PM EDT procedure are i n the results section. POCT GLUCOSE Routine 08/18/2014 9:08 PM Results f or this EDT procedure are i n the results section. POCT GLUCOSE Routine 08/18/2014 5:03 PM Results f or this EDT procedure are i n the results section. C. DIFFICILE SCREEN Routine 08/18/2014 12:12 Resu lts for this PM EDT procedure are i n the results section. POCT GLUCOSE Routine 08/18/2014 11:03 Results for this AM EDT procedure are i n the results section. POCT GLUCOSE Routine 08/18/2014 6:30 AM Results f or this EDT procedure are i n the results section. POCT GLUCOSE Routine 08/17/2014 8:50 PM Results f or this EDT procedure are i n the results section. HEMOGRAM Routine 08/17/2014 7:35 PM Results f or this EDT procedure are i n the results section. DIFFERENTIAL, Routine 08/17/2014 7:35 PM Results for this AUTOMATED EDT procedure are i n the results section. PROTHROMBIN TIME Routine 08/17/2014 7:35 PM Resul ts for this EDT procedure are i n the results section. CBC (WITH DIFF) Routine 08/17/2014 7:35 PM EDT PHOSPHORUS Routine 08/17/2014 7:35 PM Results f or this EDT procedure are i n the results section. MAGNESIUM Routine 08/17/2014 7:35 PM Results f or this EDT procedure are i n the results section. CK Routine 08/17/2014 7:35 PM Results f or this EDT procedure are i n the results section. CALCIUM Routine 08/17/2014 7:35 PM Results f or this EDT procedure are i n the results section. HEPATIC FUNCTION Routine 08/17/2014 7:35 PM Resul ts for this PANEL EDT procedure are i n the results section. BASIC METABOLIC PANEL Routine 08/17/2014 7:35 PM Results for this (NON-FASTING) EDT procedure are in the results section. URINALYSIS WITH Routine 08/17/2014 6:27 PM Result s for this REFLEX CULTURE EDT procedure are in the results section. EKG 12-LEAD STAT 08/17/2014 5:34 PM Myopathy Results f or this EDT procedure are i n the results section. POCT GLUCOSE Routine 08/17/2014 4:56 PM Results f or this EDT procedure are i n the results section. documented in this encounter Results POCT Glucose (08/19/2014 11:38 AM EDT) P athologist Signature POC Glucose 187 60 - 199 CERNER mg/dL [facility] Comment: Supplemental ranges: <140 mg/dL before meals <180 mg/dL all other times of the day Specimen Anatomical Collection Method Collection Time Receive d Time (Source) Location / / Volume Laterality Blood specimen 08/19/2014 11:38 5 (specimen) AM EDT 11:38 AM EDT Fiona Whiting DO POINT OF CARE TEST ORDERABLE S Performing Organization Address City/State/ZIP Code Phon e Number [address] CERNER MILLENNIUM (ABNORMAL) POCT Glucose (08/19/2014 6:41 AM EDT) P athologist Signature POC Glucose 207 (H) 60 - 199 CERNER mg/dL MILLENNIUM Comment: Supplemental ranges: <140 mg/dL before meals <180 mg/dL all other times of the day Specimen Anatomical Collection Method Collection Time Receive d Time (Source) Location / / Volume Laterality Blood specimen 08/19/2014 6:41 AM 015 6:41 (specimen) EDT AM EDT Fiona Whiting DO POINT OF CARE TEST ORDERABLE S Performing Organization Address City/[facility]/ZIP Code Phon e Number [address] CERNER MILLENNIUM (ABNORMAL) POCT Glucose (08/18/2014 11:57 PM EDT) P athologist Signature POC Glucose 250 (H) 60 - 199 CERNER mg/dL MILLENNIUM Comment: Supplemental ranges: <140 mg/dL before meals <180 mg/dL all other times of the day Specimen Anatomical Collection Method Collection Time Receive d Time (Source) Location / / Volume Laterality Blood specimen 08/18/2014 11:57 5 (specimen) PM EDT 11:57 PM EDT Fiona Whiting DO POINT OF CARE TEST ORDERABLE S Performing Organization Address City/State/ZIP [place] [address] CERNER MILLENNIUM POCT Glucose (08/18/2014 9:08 PM EDT) P athologist Signature POC Glucose 116 60 - 199 CERNER mg/dL MILLENNIUM Comment: Supplemental ranges: <140 mg/dL before meals <180 mg/dL all other times of the day Specimen Anatomical Collection Method Collection Time Receive d Time (Source) Location / / Volume Laterality Blood specimen 08/18/2014 9:08 PM 015 9:08 (specimen) EDT PM EDT Fiona Whiting DO POINT OF CARE TEST ORDERABLE S Performing Organization Address City/State/ZIP Code Phon e Number [address] CERNER MILLENNIUM POCT Glucose (08/18/2014 5:03 PM EDT) P athologist Signature POC Glucose 115 60 - 199 CERNER mg/[facility] Comment: Supplemental ranges: <140 mg/dL before meals <180 mg/dL all other times of the day Specimen Anatomical Collection Method Collection Time Receive d Time (Source) Location / / Volume Laterality Blood specimen 08/18/2014 5:03 PM 015 5:03 (specimen) EDT PM EDT Fiona Whiting DO POINT OF CARE TEST ORDERABLE S Performing Organization Address City/[facility]/ZIP Code Phon e Number [address] CERNER MILLENNIUM C. Difficile Screen (08/18/2014 12:12 PM EDT) Analysis Performed At Patho logist Time Signature C Diff Screen Negative Negative [facility] Specimen Anatomical Collection Method Collection Time Receive d Time (Source) Location / / Volume Laterality Stool specimen 08/18/2014 12:12 5 (specimen) PM EDT 12:34 PM EDT Resulting Agency Comment Spec In Lab Fiona Whiting MICROBIOLOGY - GENERAL ORDER [place] Performing Organization Address City/State/ZIP Code Phon e Number [address] CERNER MILLENNIUM POCT Glucose (08/18/2014 11:03 AM EDT) P athologist Signature POC Glucose 107 60 - 199 CERNER mg/dL [facility] Comment: Supplemental ranges: <140 mg/dL before meals <180 mg/dL all other times of the day Specimen Anatomical Collection Method Collection Time Receive d Time (Source) Location / / Volume Laterality Blood specimen 08/18/2014 11:03 5 (specimen) AM EDT 11:03 AM EDT Fiona Whiting POINT OF CARE TEST ORDERABLE S Performing Organization Address City/State/ZIP Code Phon e Number [address] CERNER MILLENNIUM POCT Glucose (08/18/2014 6:30 AM EDT) athologist Signature POC Glucose 89 60 - 199 CERNER mg/dL [facility] Comment: Supplemental ranges: <140 mg/dL before meals <180 mg/dL all other times of the day Specimen Anatomical Collection Method Collection Time Receive d Time (Source) Location / / Volume Laterality Blood specimen 08/18/2014 6:30 AM 015 6:30 (specimen) EDT AM EDT Fiona Acevedo Henok LYLES POINT OF CARE TEST ORDERABLE S Performing Organization Address City/[facility]/ZIP Code Phon e Number FIONA [address] CERNER MILLENNIUM POCT Glucose (08/17/2014 8:50 PM EDT) athologist Signature POC Glucose 111 60 - 199 CERNER mg/dL [facility] Comment: Supplemental ranges: <140 mg/dL before meals <180 mg/dL all other times of the day Specimen Anatomical Collection Method Collection Time Receive d Time (Source) Location / / Volume Laterality Blood specimen 08/17/2014 8:50 PM 015 8:50 (specimen) EDT PM EDT Fiona Acevedo Henok LYLES POINT OF CARE TEST ORDERABLE S Performing Organization Address City/State/ZIP Code Phon e Number FIONA [address] CERNER MILLENNIUM (ABNORMAL) CK (08/17/2014 7:35 PM EDT) athologist Signature CK, Total 4,393 (H) 0 - 200 CERNER unit/L MILLENNIUM Specimen Anatomical Collection Method Collection Time Receive d Time (Source) Location / / Volume Laterality Blood specimen Venous Draw / 08/17/2014 7:35 PM 2014 7:52 (specimen) Unknown EDT PM EDT Resulting Agency Comment Spec In Lab Fiona Acevedo Henok LYLES CHEMISTRY ORDERABLES Performing Organization Address City/State/ZIP Code Phon e Number [place] [phone] [facility] [address] CERNER MILLENNIUM Differential, Automated (08/17/2014 7:35 PM EDT) P athologist Signature Neutrophils % 57.9 % CERNER MILLENNIUM Neutr Abs (ANC) 3.38 1.50 - CERNER 6.30 MILLENNIUM x10(3)/mcL Lymphocytes % 23.3 % CERNER MILLENNIUM Lymphocytes Abs 1.4 1.0 - 3.6 CERNER x10(3)/mcL MILLENNIUM Monocytes % 12.8 % CERNER MILLENNIUM Monocyte Abs 0.8 0.2 - 1.0 CERNER x10(3)/mcL MILLENNIUM Eosinophils % 5.5 % CERNER MILLENNIUM Eosinophils Abs 0.3 0.0 - 0.5 CERNER x10(3)/mcL MILLENNIUM Basophils % 0.3 % CERNER MILLENNIUM Basophils Abs 0.0 0.0 [...] Location / / Volume Laterality Blood specimen 08/17/2014 7:35 PM 015 7:52 (specimen) EDT PM EDT Resulting Agency Comment Spec In Lab Fiona Whiting DO HEMATOLOGY ORDERABLES Performing Organization Address City/State/ZIP Code Phon e Number [address] CERNER MILLENNIUM (ABNORMAL) Hemogram (08/17/2014 7:35 PM EDT) P athologist Signature WBC 5.8 4.0 - 10.0 CERNER x10(3)/mcL MILLENNIUM RBC 3.47 (L) 4.63 - CERNER 6.08 MILLENNIUM x10(6)/mcL Hemoglobin 10.6 (L) 13.7 - CERNER 17.5 gm/dL MILLENNIUM Hematocrit 31.4 (L) 40.0 - CERNER 51.0 % MILLENNIUM MCV 90.5 79.0 - CERNER 92.0 fL ENNIUM MCH 30.5 25.6 - CERNER 32.2 pg MILLENNIUM MCHC 33.8 32.0 - CERNER 36.5 gm/dL ENNIUM Platelets 144 (L) 145 - 370 CERNER x10(3)/mcL MILLENNIUM RDWSD 56.5 (H) 35.0 - CERNER 46.0 fL MILLENNIUM RDWCV 17.2 (H) 10.9 - CERNER 14.4 % MILLENNIUM MPV 10.5 9.0 - 12.0 CERNER fL ENNIUM Specimen Anatomical Collection Method Collection Time Receive d Time (Source) Location / / Volume Laterality Blood specimen 08/17/2014 7:35 PM 015 7:52 (specimen) EDT PM EDT Resulting Agency Comment Spec In Lab Fiona Whiting HEMATOLOGY ORDERABLES Performing Organization Address City/State/ZIP [place] [address] [facility] Prothrombin Time (08/17/2014 7:35 PM EDT) P athologist Signature PT 15.1 12.5 - 15.5 [facility] Comment: Transfusion Committee Guidelines: INR less than 2.0, PTT less than OR equal to 43.5 seconds, or Fibrinogen greater t villanueva or equal to 100 mg/dl indicate adequate procoagulant activity for hemos tasis in patients without underlying bleeding disorders. INR 1.1 0.9 - 1.1 [facility] Specimen Anatomical Collection Method Collection Time Receive d Time (Source) Location / / Volume Laterality Blood specimen 08/17/2014 7:35 PM 015 7:52 (specimen) EDT PM EDT Resulting Agency Comment Spec In Lab Fiona Chuajordan LYLES HEMATOLOGY ORDERABLES Performing Organization Address City/State/ZIP Code Phon e Number [address] CERNER MILLENNIUM (ABNORMAL) Hepatic Function Panel (08/17/2014 7:35 PM EDT) athologist Signature Total Protein 7.3 6.1 - 8.0 CERNER gm/dL MILLENNIUM Albumin 3.0 (L) 3.2 - 5.2 CERNER gm/dL MILLENNIUM AST 225 (H) 0 - 39 CERNER unit/L MILLENNIUM ALT 233 (H) 0 - 55 CERNER unit/L MILLENNIUM Alk Phos 88 40 - 120 CERNER unit/L MILLENNIUM Total 0.4 0.2 - 1.3 CERNER Bilirubin mg/dL MILLENNIUM Bili, Direct 0.1 0.0 - 0.3 CERNER mg/dL MILLENNIUM Specimen Anatomical Collection Method Collection Time Receive d Time (Source) Location / / Volume Laterality Blood specimen 08/17/2014 7:35 PM 015 7:52 (specimen) EDT PM EDT Resulting Agency Comment Spec In Lab Fiona Whiting DO CHEMISTRY ORDERABLES Performing Organization Address City/State/ZIP Code Phon e Number [address] CERNER MILLENNIUM Phosphorus (08/17/2014 7:35 PM EDT) athologist Signature Phosphorus 3.0 2.5 - 4.5 CERNER mg/dL MILLENNIUM Specimen Anatomical Collection Method Collection Time Receive d Time (Source) Location / / Volume Laterality Blood specimen 08/17/2014 7:35 PM 015 7:52 (specimen) EDT PM EDT Resulting Agency Comment Spec In Lab Fiona Whiting DO CHEMISTRY ORDERABLES Performing Organization Address City/State/ZIP Code Phon e Number [address] CERNER MILLENNIUM (ABNORMAL) Magnesium (08/17/2014 7:35 PM EDT) athologist Signature Magnesium 0.67 (L) 0.69 - 1.07 CERNER mmol/L MILLENNIUM Specimen Anatomical Collection Method Collection Time Receive d Time (Source) Location / / Volume Laterality Blood specimen 08/17/2014 7:35 PM 015 7:52 (specimen) EDT PM EDT Resulting Agency Comment Spec In Lab Fiona Whiting DO CHEMISTRY ORDERABLES Performing Organization Address City/[facility]/ZIP [place] [address] CERNER MILLENNIUM Calcium (08/17/2014 7:35 PM EDT) athologist Signature Calcium 8.8 8.5 - 10.5 CERNER mg/dL MILLENNIUM Specimen Anatomical Collection Method Collection Time Receive d Time (Source) Location / / Volume Laterality Blood specimen 08/17/2014 7:35 PM 015 7:52 (specimen) EDT PM EDT Resulting Agency Comment Spec In Lab Fiona Whiting DO CHEMISTRY ORDERABLES Performing Organization Address City/[facility] [place] [address] CERNER MILLENNIUM (ABNORMAL) Basic Metabolic Panel (non-fasting) (08/17/2014 7:35 PM EDT) athologist Signature Glucose Lvl 125 60 - 199 CERNER mg/dL MILLENNIUM Comment: Diabetes: >=200 mg/dL plus symp toms BUN 26 (H) 10 - 20 mg/dL CERNER MILLENNIU M Creatinine 0.98 0.80 - 1.50 mg/dL CERNER MILL ENNIUM Comment: Please note that the pediatric reference intervals supplied above were not validated at [facility]. Results from pediatri c patients should be interpreted in conjunction to the patient's age, height and muscle mass. Sodium 136 135 - 145 mmol/L CERNER ELISE NIUM Potassium 3.9 3.5 - 5.0 mmol/L CERNER ELISE NIUM [...] 31 mmol/L CERNER MILLENNI UM Anion Gap 14 5 - 15 mmol/L CERNER MILLENNIU M Calcium 8.8 8.5 - 10.5 mg/dL CERNER ELISE NIUM Estimated GFR >60 >=60 CERNER MILLENNIU M [...] the following links into your internet browser. http://Nerve.com/DHnkdep [email or web address].com/DHMCnkf Specimen Anatomical Collection Method Collection Time Receive d Time (Source) Location / / Volume Laterality Blood specimen 08/17/2014 7:35 PM 015 7:52 (specimen) EDT PM EDT Resulting Agency Comment Spec In Lab Fiona Whiting CHEMISTRY ORDERABLES Performing Organization Address City/State/ZIP [place] [address] CERNER MILLENNIUM (ABNORMAL) Urinalysis with microscopic (08/17/2014 6:27 PM EDT) [facility] Method Time Signature Glucose UA Negative Negative CERNER mg/dL MILLENNIUM Protein UA Negative Negative CERNER mg/dL MILLENNIUM Bilirubin UA Negative Negative CERNER mg/dL MILLENNIUM Comment: Clinical correlation required for positi ve Urine Bilirubin results as false positive may occur with some drugs and d rug related products. If a false positive is suspected a serum total bili sykes should be considered if clinically indicated. Urobilinogen UA Normal Normal mg/dL CERNER MILL ENNIUM pH UA 5.0 5.0 - 8.0 CERNER MILLENNIUM Blood UA Negative Negative mg/dL CERNER MILLENNI UM Ketones UA Negative Negative mg/dL CERNER MILLENN IUM Nitrite UA Negative Negative CERNER MILLENNIUM Leukocytes UA Small (A) Negative mcL CERNER ELISE NIUM Appearance UA Clear Clear CERNER MILLENNIU M Spec [place] UA 1.018 1.002 - 1.[address] [facility] MIL LENNIUM Color UA Yellow Yellow [facility] M[facility] RBC UA 3 0 - 3 /HPF CERNER MILLENNIUM WBC UA 6 (H) 0 - 3 /HPF CERNER MILLENNIUM Squam Epith UA <1 <=4 /HPF CERNER MILLENNI UM Hyaline Cast UA 1 0 - 2 /LPF [facility] ELISE NIUM Specimen Anatomical Collection Method Collection Time Receive d Time (Source) Location / / Volume Laterality Urine specimen 08/17/2014 6:27 PM 015 6:35 (specimen) EDT PM EDT Resulting Agency Comment Spec In Lab Fiona Whiting DO URINE ORDERABLES Performing Organization Address City/State/ZIP [place] [address] COLLIN GALICIAIUM EKG 12 Lead (08/17/2014 5:34 PM EDT) Component Value Ref Range Test Analysis Performed Pathologis t Method Time At Signature Ventricular rate 65 BPM MUSE SYSTEM Atrial Rate 65 BPM MUSE SYSTEM P-R Interval 160 ms MUSE SYSTEM QRS Duration 100 ms MUSE SYSTEM Q-T Interval 408 ms MUSE SYSTEM QTC Calculated 424 ms MUSE SYSTEM (Bezet) Calculated P [place] 23 degrees MUSE SYSTEM Calculated R [place] -9 degrees MUSE SYSTEM Calculated T [place] 2 degrees MUSE SYSTEM INTERPRETATION Normal sinus rhythm MUSE SYSTEM Left ventricular hypertrophy Abnormal ECG When compared with ECG of 05-JUL-2009 18:35, No significant change was found I personally reviewed the tracing and edited the fellows int erpretation Confirmed by fellow Solitario Mixon MD, Derrell ([id number]) on 08/18/2014 10:56:42 AM Confirmed by MD AVENDAÑO JOHN ([id number]) on 08/18/2014 6:24:54 PM Specimen Anatomical Collection Method Collection Time Receive d Time (Source) Location / / Volume Laterality 08/17/2014 5:34 PM 5 6:24 EDT PM EDT Fiona Whiting DO ECG ORDERABLES Performing Organization Address City/State/ZIP Code Phon e Number MUSE SYSTEM POCT Glucose (08/17/2014 4:56 PM EDT) P athologist Signature POC Glucose 91 60 - 199 CERNER mg/dL [facility] Comment: Supplemental ranges: <140 mg/dL before meals <180 mg/dL all other times of the day Specimen Anatomical Collection Method Collection Time Receive d Time (Source) Location / / Volume Laterality Blood specimen 08/17/2014 4:56 PM 015 4:56 (specimen) EDT PM EDT Fiona Whiting DO POINT OF CARE TEST ORDERABLE S Performing Organization Address City/State/ZIP Code Phon e Number [place] [phone] [facility] documented in this encounter Visit Diagnoses Diagnosis Myopathy Myopathy, unspecified documented in this encounter Administered Medications Inactive Administered Medications - up to 3 most recent administrations Medication Order MAR Action Action Date Dose Rate Site acetaminophen (TYLENOL) tablet 650 Given 08/18/2014 8:35 PM EDT 650 mg mg 650 mg, Oral, ONCE, 1 dose, On Sat08/18/14 at 1999, Upon arrival prior to rituximab., Routine atenolol (TENORMIN) tablet 50 mg Given 08/19/2014 8:49 AM EDT 50 mg 50 mg, Oral, DAILY, First dose on Sat08/17/14 at 1900, Until Discontinued, Routine Given 08/18/2014 8:12 AM EDT 50 mg Given 08/17/2014 8:09 PM EDT 50 mg diphenhydrAMINE (BENADRYL) injection 25 mg Given 08/18/2014 8:35 PM EDT 25 mg 25 mg, Intravenous, ONCE, 1 dose, On Sat08/18/14 at 2000, Upon arrival prior to rituximab., Routine enoxaparin (LOVENOX) injection 40 mg Given 08/19/2014 8:48 AM EDT 40 mg 40 mg, Subcutaneous, DAILY, First dose on Sat08/17/14 at 1900, Until Discontinued, Routine Given 08/18/2014 8:12 AM EDT 40 mg Given 08/17/2014 8:09 PM EDT 40 mg esomeprazole (NexIUM) capsule 40 mg Given 08/19/2014 8:49 AM EDT 40 mg 40 mg, Oral, DAILY, First dose on Sat08/17/14 at 1800, Until Discontinued, Routine Given 08/18/2014 8:12 AM EDT 40 mg Given 08/17/2014 8:10 PM EDT 40 mg ferrous sulfate EC tablet 325 mg Given 08/19/2014 8:49 AM EDT 325 mg 325 mg, Oral, DAILY WITH BREAKFAST, First dose on Sat08/18/14 at 0800, Until Discontinued, Routine Given 08/18/2014 8:12 AM EDT 325 mg hydrochlorothiazide (HYDRODIURIL) tablet 25 mg Given 08/19/2014 8:49 AM EDT 25 mg 25 mg, Oral, DAILY, First dose on Sat08/17/14 at 1900, Until Discontinued, Routine Given 08/18/2014 8:12 AM EDT 25 mg Given 08/17/2014 8:10 PM EDT 25 mg insulin aspart (novoLOG) VIAL injection 2-8 Given 08/08 1:06 PM EDT 4 Units Units 2-8 Units, Subcutaneous, 3 TIMES DAILY BEFORE MEALS, First dose on Sat08/19/14 at 1130, Until Discontinued, CORRECTION BOLUS Moderate BG 140 [...] give no insulin and resume prior schedule. insulin glargine (LANTUS) VIAL injection 25 Given 08/08 6:44 AM EDT 25 Units Units 25 Units, Subcutaneous, EVERY MORNING, First dose on Sat08/18/14 at 0700, Until Discontinued, Routine insulin glargine (LANTUS) VIAL injection Given 08/19/2014 10 :46 AM EDT 25 Units 25 Units 25 Units, Subcutaneous, DAILY, First dose on Sat08/19/14 at 1015, Until Discontinued, Routine insulin glargine (LANTUS) VIAL injection 75 Given 08/08 9:33 PM EDT 75 Units Units 75 Units, Subcutaneous, NIGHTLY, First dose on Sat08/17/14 at 2100, Until Discontinued, Routine Given 08/17/2014 8:51 PM EDT 75 Units lisinopril (PRINIVIL;ZESTRIL) tablet 40 mg Given 08/19/2014 8:49 AM EDT 40 mg 40 mg, Oral, DAILY, First dose on Sat08/17/14 at 1900, Until Discontinued, Routine Given 08/18/2014 8:12 AM EDT 40 mg Given 08/17/2014 8:10 PM EDT 40 mg loperamide (IMMODIUM) capsule 2 mg Given 08/18/2014 10:50 AM EDT 2 mg 2 mg, Oral, 4 TIMES DAILY PRN, Starting on Sat08/18/14 at 1009, Until Sat08/19/14 at 1802, Diarrhea, Do not exceed 16 mg/day., Routine methylPREDNISolone sodium succinate (PF) Given 08/18/2014 8:36 P M EDT 100 mg (solu-MEDROL) injection 100 mg 100 mg, Intravenous, ONCE, 1 dose, On Sat08/18/14 at 2000, Upon arrival prior to rituximab. mycophenolate (CELLCEPT) capsule 1,000 m g Given 08/19/2014 8:48 AM EDT 1,000 mg 1,000 mg, Oral, 2 TIMES DAILY, First dose on Sat08/18/14 at 2100, Until Discontinued, Routine Given 08/18/2014 9:34 PM EDT 1,000 mg mycophenolate (CELLCEPT) capsule 1,000 m g Given 08/18/2014 8:12 AM EDT 1,000 mg 1,000 mg, Oral, 2 TIMES DAILY, First dose on Sat08/17/14 at 2100, Until Discontinued, Routine Given 08/17/2014 8:10 PM EDT 1,000 mg riTUXimab (RITUXAN) 800 mg Rate/Dose Change 08/18/2014 11:31 PM 800 mg 100 mL/hr in sodium chloride 0.9% 400 EDT mL infusion 800 mg, Intravenous, ONCE, 1 dose, On Sat08/18/14 at 2100, Administer intravenously at an initial rate of [...] the previous rate., Indication: Statin-induced autoimmune myopathy Rate/Dose Change 08/18/2014 10:46 PM EDT 800 mg 75 mL/hr Rate/Dose Change 08/18/2014 10:05 PM EDT 800 mg 50 mL/hr sodium chloride 0.9 % flush 5 mL Given 08/19/2014 8:50 AM EDT 5 mLs 5 mL, Intravenous, 2 TIMES DAILY, First dose on Sat08/17/14 at 2100, Until Discontinued, Routine Given 08/18/2014 8:36 PM EDT 5 mLs Given 08/18/2014 8:13 AM EDT 5 mLs traMADol (ULTRAM) tablet 100 mg Given 08/18/2014 9:52 AM EDT 100 mg 100 mg, Oral, 2 TIMES DAILY PRN, Starting on Sat08/17/14 at 1738, Until Raiza 08/19/14 at 1802, Pain, Routine documented in this encounter Active and Recently Administered Medications Times are shown in EDT. Scheduled Medication Order 08/17/2014 08/18/2014 08/19/2014 acetaminophen (TYLENOL) tablet 650 mg (COMPLETED) 2034 (Given - Provider: Ramiro Robles RN) 650 mg, Oral, ONCE, 1 dose, Sat08/18/14 at 2000, Upon arrival prior to rituximab., Routine atenolol (TENORMIN) tablet 50 mg (CANCELED) 2008 (Give n - Provider: Afua San RN) 0812 (Given - Provider: Alem Reis RN) 0849 ( Given - Provider: Dannielle Ybarra, WES) 50 mg, Oral, DAILY, First dose on 03/24 at 1900, Until Discontinued, Routine diphenhydrAMINE (BENADRYL) injection 25 mg (COMPLETED) 2034 (Given - Provider: Ramiro Robles RN) 25 mg, Intravenous, ONCE, 1 dose, 04/24 at 2000, Upon arrival prior to rituximab., Routine enoxaparin (LOVENOX) injection 40 mg (CANCELED) 2008 ( Given - Provider: Afua San RN) 0812 (Given - Provider: Alem Reis RN) 0848 (Given - Provider: Dannielle Ybarra RN) 40 mg, Subcutaneous, DAILY, First dose o n Sat08/17/14 at 1900, Until Discontinued, Routine esomeprazole (NexIUM) capsule 40 mg (CANCELED) 2009 (G iven - Provider: Afua San RN) 0812 (Given - Provider: Alem Reis RN) 0849 ( Given - Provider: Dannielle Ybarra RN) 40 mg, Oral, DAILY, First dose on 03/24 at 1800, Until Discontinued, Routine ferrous sulfate EC tablet 325 mg (CANCELED) 811 (Given - Provider: Alem Reis RN) 0849 (Given - Provider: Dannielle jansen RN) 325 mg, Oral, DAILY WITH BREAKFAST, Firs t dose on Sat08/18/14 at 0800, Until Discontinued, Routine hydrochlorothiazide (HYDRODIURIL) tablet 25 mg (CANCEL ED) 2009 (Given - Provider: Afua San RN) 811 (Given - Provider: Alem freeman RN) 0849 (Given - Provider: Dannielle jansen RN) 25 mg, Oral, DAILY, First dose on 03/24 at 1900, Until Discontinued, Routine insulin aspart (novoLOG) VIAL injection 2-8 Units (CANCELED) 1306 (Given - Provider: Dannielle Ybarra RN) 2-8 Units, Subcutaneous, 3 TIMES DAILY B EFORE MEALS, First dose on Sat08/19/14 at 1130, Until Discontinued, CORRECTION BOLUS Moderate BG 140 [...] give no insulin and resume prior schedule. , Routine insulin glargine (LANTUS) VIAL injection 25 Units (CANCELED) 0700 (Not Given - Provider: Afua San RN - Reason: Contraindicated - Comment: given orange juice) 0644 (Given - Provider: Whitney sellers RN) 25 Units, Subcutaneous, EVERY MORNING, F irst dose on Sat08/18/14 at 0700, Until Discontinued, Routine insulin glargine (LANTUS) VIAL injection 25 Units (CANCELED) 1046 (Given - Provider: Dannielle Ybarra RN) 25 Units, Subcutaneous, DAILY, First dos e on Raiza 08/19/14 at 1015, Until Discontinued, Routine insulin glargine (LANTUS) VIAL injection 75 Units (CAN CELED) 2050 (Given - Provider: Afua San RN) 2132 (Given - Provider: Whitney Franz RN) 75 Units, Subcutaneous, NIGHTLY, First d ose on Sat08/17/14 at 2100, Until Discontinued, Routine lisinopril (PRINIVIL;ZESTRIL) tablet 40 mg (CANCELED) 2009 (Given - Provider: Afua San RN) 08 (Given - Provider: Alem Reis RN) 0849 (Given - Provider: Dannielle Ybarra RN) 40 mg, Oral, DAILY, First dose on 03/24 at 1900, Until Discontinued, Routine methylPREDNISolone sodium succinate (PF) (solu-MEDROL) injection 100 mg (COMPLETED) 2035 (Given - Provider: Ramiro jansen RN) 100 mg, Intravenous, ONCE, 1 dose, Sat at 2000, Upon arrival prior to rituximab., Routine mycophenolate (CELLCEPT) capsule 1,000 mg (CANCELED) 2133 (Given - Provider: Whitney Franz RN) 0848 (Given - Provider: Dannielle jansen RN) 1,000 mg, Oral, 2 TIMES DAILY, First dos e on Sat08/18/14 at 2100, Until Discontinued, Routine mycophenolate (CELLCEPT) capsule 1,000 mg (CANCELED) 2 010 (Given - Provider: Afua San RN) 0812 (Given - Provider: Alem Reis RN) 1,000 mg, Oral, 2 TIMES DAILY, First dos e on Sat08/17/14 at 2100, Until Discontinued, Routine riTUXimab (RITUXAN) 800 mg in sodium chloride 0.9% 400 mL in fusion (COMPLETED) 2129 (New Bag - Provider: Whitney Franz RN)2204 (Rate/Dose Change - Provider: Whitney Franz RN)2245 (Rate/Dose Change - Provider: Whitney Franz RN)2331 (Rate/Dose Change - Provider: Whitney Franz RN) 800 mg, Intravenous, ONCE, 1 dose, Sat at 2100, Administer intravenously at an initial rate of 50 mg/hour. If no hypersensitivity or infusion-related events occur, increase infusion rate in 50 m g/hour increments every 30 minutes, to a maximum of 400 mg/hour. If hypersensitivity or an infusion-related event develops, the infusion should be temporarily slowed or interrupted. Upon improvement of the patient's symptoms, the infusion can be continued at one-half the previous rate., Indication: Statin-induced autoimmune myopathy sodium chloride 0.9 % flush 5 mL (CANCELED) 2010 (Give n - Provider: Afua San RN) 08 (Given - Provider: Alem freeman RN)2035 (Given - Provider: Ramiro Robles RN) 0850 (Given - Provider: Dannielle jansen RN) 5 mL, Intravenous, 2 TIMES DAILY, First dose on Sat08/17/14 at 2100, Until Discontinued, Routine PRN Medication Order 08/17/2014 08/18/2014 08/19/2014 loperamide (IMMODIUM) capsule 2 mg (CANCELED) 1050 (Given - Provider: Alem Reis RN) 2 mg, Oral, 4 TIMES DAILY PRN, Starting Sat08/18/14 at 1009, Until Raiza 08/19/14 at 1802, Diarrhea, Do not exceed 16 mg/day., Routine traMADol (ULTRAM) tablet 100 mg (CANCELED) 0952 (Given - Provider: Alem Reis RN) 100 mg, Oral, 2 TIMES DAILY PRN, Startin g Sat08/17/14 at 1738, Until Raiza 08/19/14 at 1802, Pain, Routine documented in this encounter Care Teams Keno Clerk Relationship Specialty Start Date End Date Samantha Baer MD PCP - General 11/07/10 [address] [place] [address] documented as of this encounter
--- OUTSIDE RECORDS SUMMARY | 2022-04-11 10:55 | XMS_ITS | Encounter Summary ---
:1960 Author Organization [facility] [place] [address] Care Team Providers Name Role Phone Jazmine Baer MD Primary Care Provider Encounter Details Date Type Department Care Team Description 08/17/2014 Office Visit Neurology at [facility] [place] Krishnamurthy [facility] [place] [phone] [facility] [address] [place], [place] [address] (Wo rk) Social History Tobacco Use Types [...] documented as of this encounter Progress Notes Vladimir Krishnamurthy MD - 08/23/2014 1:05 PM EDT Admitted directly from clinic see admission notes. documented in this encounter Plan of Treatment Upcoming Encounters Date Type Specialty Care Team Description 06/19/2022 Office Visit Rheumatology Richi Blackmon MD [facility] [address] [facility] [place], [place] [address] (Wo rk) Scheduled Procedures Name Priority Associated Diagnoses Date/Time EGD, UPPER GI ENDOSCOPY Family hx of colon cance r COLONOSCOPY, DIAGNOSTIC Family hx of colon cance r documented as of this encounter Visit Diagnoses Diagnosis Myopathy Myopathy, unspecified documented in this encounter Care Teams Digital Analytics Manager Relationship Specialty Start Date End Date Jazmine Baer MD PCP - General 11/07/10 [address] [place] [address] documented as of this encounter
--- OUTSIDE RECORDS SUMMARY | 2022-04-11 10:55 | XMS_ITS | Encounter Summary ---
:1960 Author Organization [facility] [place] [address] Care Team Providers Name Role Phone Samantha Baer MD Primary Care Provider Encounter Details Date Type Department Care Team Description 07/08/2014 - Hospital Encounter 5 [facility] [place] Caridad Ren MD [facility] [place] [address] Skin rash 07/13/2014 [facility] Wilfred Nelson MD [facility] [place] [address] [place] [address] Social History Tobacco Use Types Packs/Day Years [...] Sign Reading Time Taken Comments Blood Pressure 149/66 07/13/2014 9:51 AM EST Pulse 65 07/13/2014 9:51 AM EST Temperature 36.7 ??C (98.1 ??F) 07/13/2014 9:51 AM EST Respiratory Rate 18 07/13/2014 9:51 AM EST Oxygen Saturation 97% 07/13/2014 9:51 AM EST Inhaled Oxygen Concentration - - Weight 110 kg (242 lb 8.1 oz) 07/09/2014 12:35 AM EST Height 174 cm (5' 8.5) 07/08/2014 6:00 PM EST Body Mass Index 36.34 07/08/2014 6:00 PM EST documented in this encounter Discharge Instructions Patient InstructionsTaNilesh avilez MD - 07/13/2014 11:34 AM EST Instructions on Discharge to Home Why you were hospitalized - IVIG Therapy for Myopathy Call your doctor or seek medical attention if you develop the following - chest pain, shortness of breath, fever, cough, worsening weakness in an arm or leg. Activity level - no restrictions Diet - no change in previous diet Driving - as before hospitalization Shower/Bath - permitted Wound Care - none Changes in Your Medications: New Medications: - CELLCEPT: Take two 250mg tablets per day (for total of 500mg per day) - LOVENOX: Inject 40mg subcutaneously one day prior to, the days of, and the day after your IVIG injections. Medication dose changes: - LANTUS: Dose changed to 25 units in the morning and in the evening - HUMALOG: Dose changed to 2-4 units with meals Follow-up: Future Appointments Date Time Provider Department Center 07/29/2014 2:15 PM Henrry Gleason MD [facility] 07/29/2014 2:30 PM Ruperto Mcclellan MD [facility] 08/10/2014 10:00 AM Ultrasound, Room Five US None 08/10/2014 11:30 AM Anastasia Mccauley MD [facility] Your Inpatient Doctor: Wilfred Nelson MD Your Primary Care Provider: SAMANTHA BAER MD [phone] For questions regarding this document or issues relating to this hospitalization on the Medical Service, please contact your inpatient physician through the [facility] . Issues after hours and on weekends will be handled by the Hospitalist staff on-call. documented in this encounter Medications at Time of Discharge Medication Sig Dispensed Refills Start Date End Date multivitamin Capsule Take 1 capsule by 0 mouth daily. insulin glargine Inject 25 Units 10 mL 12 07/13/201412/2015 (LANTUS) Solution subcutaneously nightly. insulin lispro Inject 2-4 Units 10 mL 12 07/13/201412/2015 (HUMALOG) Solution subcutaneously 3 times daily (with meals). mycophenolate Take 2 capsules by 60 capsule 3 07/13/2014 (CELLCEPT) 250 mg mouth daily. Capsule enoxaparin (LOVENOX) Inject 0.4 mLs 20 Syringe [...] documented as of this encounter Progress Notes Brianna Fox OT - 07/13/2014 2:03 PM EST Occupational Therapy Treatment Note Visit #: 2 Patient Profile: Bucky Acevedo is a 54 y.o. 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 Pt has poor IV access and was given a port,which accrued a DVT 01/21 and thus he has not been on IVIG therapy since then. Social History: Patient lives with his of 35 years, who cars for someone at home, so she can be available as needed. She has been able to help him up by bringing something over to help him get up Home Setup: 4 shallow steps to enter without a rail from garage to the basement level, flight to main living level, then can stay on that level, has a walk-in shower. 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 Pt reports he tries to do as much as he can without assistance. Pt ambulates with no device in the home and shorter distances but uses a cane for longer distances. Pt reports 2 falls in the last 6 months, one in which he slipped on ice and the other more recently with this decline. Code Status: Full Code Activity Orders:up with assistance Precautions: at risk to fall, proximal weakness S: I know all of that, but I still need to live my life. O: Patient seen for therapeutic activities in preparation for d/c. Pt's was present. Pt demonstrated the following: ?? Self-care: ?? Dressing: close SBA for upper and lower body dressing, no LOB ?? Bathing: strongly recommend use of shower seat and non-skid mat in the shower for safety and energy conservation purposes ?? Extensively educated pt and his re: energy conservation-offered various strategies for how to manage with weakness-discussed moving objects for ease of access, benefit of pacing (more frequent smaller bouts of activity); pt was mildly receptive. Pt's agrees to try to reinforce ?? Discussed recommendation to avoid use of police judge/shoveling for energy conservation and safetypurposes ?? Functional Mobility: ?? Mobilizing with no device in room, see PT note Pain: no c/o pain during session Education: Pt and his were educated re: safety, discharge planning, and energy conservation. Staff Communication: Patient status, treatment, and mobility recommendations discussed with nursing/other staff. A: Pt presents with improved balance and endurance compared to prior sessions, though continues to be at risk to fall, especially with fatigue. Discussed risks and extensively educated pt re: energy conservation for improved participation in his ADL's. Pt's was present and agreed to try to reinforce. Pt would likely benefit from guidance in progressing his activity via OT or PT, though unable toreceive home services 2/2 outpatient clinic visits for IVIG infusions. Pt will benefit from ongoing therapeutic interventions to achieve pt's and therapy goals Occupational Therapy Goals: To be achieved by d/c: 1. [...] Patient will demonstrate understanding of energy conservation techniques P: Plan is for pt to d/c home today with his . Pt will benefit from further PT services and would recommend home OT for further energy conservation reinforcement but pt will be attending outpatientclinic for IVIG infusions. Total time spent with patient: 17 minutes for self-care x 1 Total timed interventions: 17 minutes Pager: [phone] Brianna Fox OT Occupational Therapy Rehabilitation Department Jennifer Lieberman RN - 07/13/2014 1:50 PM EST Patient discharged to home. At time of discharge patient is alert and oriented, skin is intact, all questions answered to patients satisfaction. Patient left floor with family. All personal belongings with patient. Janny Staton RN - 07/13/2014 12:52 PM EST Office of Care Management Clinical Industrial Locomotive Operator (CRC) Janny Pierce RN, BSN -CRC Neurology/ENT Voice Mail [phone] Pager [phone] DISCHARGE PLANNING: Room: 503 Attending: Dr. Nelson Reason for Hospitalization: 54 y.o. 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 He has decided that he would prefer to go to [facility] infusion clinic to have them assist with his outpatient IVIG. He feels comfortable giving himself his sq Lovenox. He has done this in the past. Have contacted the infusion clinic, this has been all set up and he has appointments set up for August 10 and at 8:00 am each day. No other d/c needs have been identified. He will go outpatient with his to have his IV infusions. Camila Gasca RD - 07/13/2014 12:32 PM EST Nutrition Note S: Prefers regular diet O: Regular diet Novolog, lantus Bld glu 98- 172 A: Pt seen as he is on a regular diet but receiving insulin. In d/w pt, he prefers this. Also encouraged low Na intake given HORTON. Pt denies need for information and expects discharge today. Nutrition Services to follow should discharge be delayed Wilfred Ruggiero MD - 07/13/2014 7:07 AM EST Neurology Progress Note Patient Name: Bucky Acevedo Admit Date: 07/08/2014 Patient ID: Bucky Acevedo is a 54 y.o. 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 Active Issues: Inflammatory myopathy Secondary Problems: DM HTN HLD Obesity Interval History: No acute events. Medications: Scheduled Meds: ??? insulin glargine 25 Units Subcutaneous Nightly ??? immune globulin 20 g Intravenous Q24H And ??? immune globulin 20 g Intravenous Q24H And ??? immune globulin 5 g Intravenous Q24H ??? insulin glargine 25 Units Subcutaneous Daily ??? mycophenolate 500 mg Oral Daily ??? atenolol 50 mg Oral Daily ??? ferrous sulfate 325 mg Oral BID ??? multivitamin 1 tablet Oral Daily ??? traMADol 100 mg Oral BID ??? enoxaparin 40 mg Subcutaneous Daily ??? docusate sodium 100 mg Oral BID ??? insulin aspart 1-4 Units Subcutaneous TID AC ??? lisinopril 40 mg Oral Daily And ??? hydrochlorothiazide 25 mg Oral Daily ??? esomeprazole 40 mg Oral Daily Continuous Infusions: PRN Meds:.ondansetron, magnesium hydroxide, polyethylene glycol, bisacodyl, bisacodyl, lactulose, acetaminophen, dextrose 50% OR glucagon (human recombinant) Physical Exam: Vitals: Temp: [36.7 ??C (98.1 ??F)-37.1 ??C (98.8 ??F)] Heart Rate: [66-77] Resp: [16-18] BP: (118-159)/(57-86) SpO2: [98 %-100 %] General: Middle aged male in bed, NAD. MS: Alert, oriented, clear language, no dysarthria CN: PERRL, EOMI, visual cano full, no facial asymmetry Motor: Normal bulk and tone. No fasciculations. No tremors. No myoclonus. Strength generally slightly weaker on the right; 3+/5 on the right and 4-/5 on the left upper extremities, finger abduction andgrip 4+/5 bl, 3+ in the proximal LE muscles on the right, and 4- on the left, dorsiflexion/plantarflexion 4+/5 bl. Reflexes: absent reflexes in the lower extremity. Equivocal toes. Labs: Recent Results (from the past 24 hour(s)) POCT GLUCOSE Result Value Ref Range POC Glucose 104 60 - 199 mg/dL CK Result Value Ref Range CK, Total 6277 (*) 0 - 200 unit/L BMP W/FASTING GLUCOSE Result Value Ref Range Glucose Fasting 172 (*) 65 - 99 mg/dL BUN 27 (*) 10 - 20 mg/dL Creatinine 0.98 0.80 - 1.50 mg/dL Sodium 133 (*) 135 - 145 mmol/L Potassium 4.7 3.5 - 5.0 mmol/L Chloride 98 98 - 107 mmol/L CO2 24 22 - 31 mmol/L Anion Gap 11 5 - 15 mmol/L Calcium 9.5 8.5 - 10.5 mg/dL Estimated GFR >60 >=60 HEPATIC FUNCTION PANEL Result Value Ref Range Total Protein 8.9 (*) 6.4 - 8.3 gm/dL Albumin 3.3 3.2 - 5.2 gm/dL AST 261 (*) 0 - 39 unit/L ALT 235 (*) 0 - 55 unit/L Alk Phos 91 40 - 120 unit/L Total Bilirubin 0.6 0.2 - 1.3 mg/dL Bili, Direct 0.2 0.0 - 0.3 mg/dL HEMOGRAM Result Value Ref Range WBC 3.5 (*) 4.0 - 10.0 x10(3)/mcL RBC 3.81 (*) 4.63 - 6.08 x10(6)/mcL Hemoglobin 11.0 (*) 13.7 - 17.5 gm/dL Hematocrit 33.8 (*) 40.0 - 51.0 % MCV 88.7 79.0 - 92.0 fL MCH 28.9 25.6 - 32.2 pg MCHC 32.5 32.0 - 36.5 gm/dL Platelets 113 (*) 145 - 370 x10(3)/mcL RDWSD 50.1 (*) 35.0 - 46.0 fL RDWCV 15.5 (*) 10.9 - 14.4 % MPV 10.6 9.0 - 12.0 fL DIFFERENTIAL, AUTOMATED Result Value Ref Range Neutrophils % 62.1 Neutr Abs (ANC) 2.20 1.50 - 6.30 x10(3)/mcL Lymphocytes % 20.1 Lymphocytes Abs 0.7 (*) 1.0 - 3.6 x10(3)/mcL Monocytes % 13.6 Monocyte Abs 0.5 0.2 - 1.0 x10(3)/mcL Eosinophils % 3.4 Eosinophils Abs 0.1 0.0 - 0.5 x10(3)/mcL Basophils % 0.8 Basophils Abs 0.0 0.0 - 0.2 x10(3)/mcL Immature Gran % 0.00 Tamara Gran Abs 0.00 0.00 - 0.05 x10(3)/mcL POCT GLUCOSE Result Value Ref Range POC Glucose 171 60 - 199 mg/dL POCT GLUCOSE Result Value Ref Range POC Glucose 92 60 - 199 mg/dL POCT GLUCOSE Result Value Ref Range POC Glucose 116 60 - 199 mg/dL POCT GLUCOSE Result Value Ref Range POC Glucose 117 60 - 199 mg/dL Diagnostic Tests and Imaging: No new imaging Assessment: Bucky Acevedo is a 54 y.o. 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 He has a history of DVTs thought to be secondary to IVIG therapy, discussed with hematology, he is on prophylactic lovenox for now. Today is day 5 of 5 day IVIG course. Plan: #Myositis: -neuro check & vitals q4h / q4h -IVIG x 5 days 400 mg/kg/dose (today day 55) - Continue CellCept 50mmg qd #DM -ISS - Continue lantus 25u BID #HTN/ASCVD - Continue Atenolol 50mg qd - Continue Lisinopril 40mg qd - Continue HCTZ 25mg qd #Other -lovenox 40mg SC daily -RBOs -SCDs -home tramadol 100mg BID -regular diet -tylenol PRN -up with assistance - PT/OT # FULL code Nilesh Kay MD General Neurology Pager: [phone] Neurology Attending I saw and evaluated the patient with the neurology team. I have reviewed the resident's history during the visit and I agree with the details as written. My physical examination confirms the resident'sfindings. The assessment and plan were formulated in discussion with me at the time of the visit Shayan agree with them as documented. Patient with autoimmune myopathy is admitted following exacerbation of symptoms. Exam is noteworthy for mild weakness only. He is receiving a course of IVIG and is perhaps a little improved. He is medically stable and ready for discharge today Wilfred Nelson MD [place] [address] Pager #[phone] Email: [email or web address] Apoorva Leong [facility] - 07/12/2014 4:56 PM EST 07/12/14 0900 Pulmonary Mechanics Negative Inspiratory Force (cm H2O) -50 Vital Capacity (mL) 2.6 Spont. Tidal Volume (mL) 1300 Pulmonary mechanics done with patient. 18.3ml/fk vital capacity. PT results very stable. Janny Pierce RN - 07/12/2014 2:26 PM EST Office of Care Management Clinical Industrial Locomotive Operator (CRC) Janny Pierce RN, BSN -CRC Neurology/ENT Voice Mail [phone] Initial Assessment: Room: 503 Attending: Dr. Nelson Patient/family has agreed to CRC services. Reason for Hospitalization: 54 y.o. 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 Social/Family Services: her lives with his very supportive , who assists him a great deal Advance Directives: not on file, will provide him with a DPOA packet SMASH HAND referral: available if needed PCP:SAMANTHA BAER MD @[email or web address]@ [phone] Insurance Coverage: Medicare/Medicaid Potential Discharge Needs: Have been following patient. Spent time with him this am. He has a very good support system at home. HE explains that for years he has been getting IVIG at home. He has had his local [facility] this [facility]IG. We spoke today about the fact that he may need to continue this treatment. Spoke with him about doing it at a local infusion room at his local hospital, or [facility] she want to do this at home again. He stated that he is a hard stick and would like to have a mediport done here if he is to do it at home. So have spoken the team and they are planning on contacting patients PCP to talk about it. In the meantime, need to find out the specific order of IVIG, which has not been decided yet and assist with setting this up for home infusion. Anticipated Barriers to Discharge:not medically stable (patient has been discussed at daily multidisciplinary rounds) Plan: will continue to follow and assist with d/c plan. Sharri River, PT - 07/12/2014 1:19 PM EST Physical Therapy Treatment Note Visit #: 2 Patient Dx: Bucky Acevedo is a 54 y.o. male admitted on 07/08/2014 by Caridad Land MD with proximal weakness consistent with inflammatory myopathy. Patient with the following active problems: Patient Active Problem List Diagnosis Code ??? Myopathy 359.9 ??? Nausea and vomiting 787.01 ??? Diabetes mellitus type II 250.00 ??? Hepatosplenomegaly 571.8 ??? Durand's esophagus 530.85 ??? Nonalcoholic steatohepatitis (HORTON) 571.8 ??? Anemia 285.9 ??? Skin rash 782.1 PMH: Past Medical History Diagnosis Date ??? Diabetes ??? Hypertension ??? Hyperlipidemia ??? Gout ??? Obesity ??? Kidney stone ??? 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 Shingles 2010 ??? DM II (diabetes mellitus, type II), controlled ??? Cirrhosis Social History: Patient lives with his Bethanie in a two story home in [place], [place]. Pt states thatentry level is basement with full flight of stairs and 2 rails to get to main living level. Bathroomincludes raised toilet seat, stall shower, and pt states that he has a wall suction grab bar (not yet installed) and shower chair available but does not use them. Pt's is available to provide 24/7assist if needed. Stairs: 3 without a rail to enter - of note pt reports that stairs are low, 3 inch rise Baseline Mobility: Disabled since 2009; ambulates primarily without use of assistive device but willoccasionally use SC for longer distances out of home or when feeling very weak; drives when feeling well; fluctuating functional endurance Equipment at home: SC, raised toilet seat, palliative care physician, sock aid, grab bar Precautions / Special Considerations: Full code; At risk to fall with h/o falls Activity Orders: Up with assistance Interval History: pt has been ambulating independently within room over weekend Staff communication/Mobility Recommendations: Pt. to utilize straight cane and supervision for ambulation with nursing. Bed Mobility: minimal assist from flat bed Transfers: supervision using SC Ambulation: supervision SC Subjective: Yesterday I was able to go three laps, but then I got really tired. I know I'm supposedto pace myself but I don't want to get worse. Objective: Patient seen for 24 mins for functional therapeutic exercise to address goals. Pt demonstrated the following: ?? Pt seated at EOB upon arrival, had just finished up lunch ?? Sit to stand with supervision without use of assistive device ?? Ambulated 300 feet with supervision without use of assistive device ?? No evidence of furniture walking or loss of balance ?? No rest breaks required ?? Comments: reduced azeb, widened base of support with (B) excessive hip external rotation, increased lateral weight shifting within OSMANY with ambulation ?? Ascended / descended 6 stairs using one railing with supervision ?? Limited to small stair set 2/2 IV infusing ?? Step-to pattern for stair ascent, [id number] pattern for stair descent ?? Ambulated 30 feet back to room with supervision without use of assistive device ?? Stand to sit at EOB with supervision without use of assistive device ?? Pt left resting comfortably at EOB with call howe in reach Vitals: Temperature Temp: 37 ??C (98.6 ??F) Heart Rate Heart Rate: 77 Blood Pressure BP: 141/61 mmHg Respiratory Rate Resp: 18 SpO2 SpO2: 99 % Pain: 0/10 on Numeric Pain Rating Scale Education: Pt/family education ongoing - Patient educated on Exercise, Safety , Gait , Activity pacing/Energy conservation and Discharge planning and verbalizes and demonstrates understanding. HEP: ambulation >/= 3x/day with integration of energy conservation skills Assessment: Bucky Acevedo admitted with proximal weakness consistent with inflammatory myopathy. At this time, pt limited by proximal muscle weakness and reduced activity tolerance. Pt demonstrated improved activity tolerance and dynamic safety compared to initial evaluation, however would continueto benefit from education and training regarding energy conservation strategies in order to maximizefunctional mobility status and dynamic safety. Pt encouraged to ambulate frequently with staff, getting into the bathroom for toileting and walking out in the [place] as able. Pt will benefit from ongoingtherapeutic interventions to achieve therapy goals. Physical Therapy Goals: To be achieved by 07/16/14: 1. Pt. to demonstrate knowledge of energy [...] 5. Pt. to ambulate >150 feet with a no assistive device, and independent with increased time. 6. Pt. to ambulate up/down 14 step/stairs with supervision, using one railing. 7. Family or caregiver to demonstrate understanding of therapeutic interventions to support the careof the patient. Plan: Pt to be seen 3-4 times per week for therapy including Bed mobility, Transfers, Stairs, Exercise, Safety , Activity pacing/Energy conservation, Home program and Discharge planning. Patient agreeswith plan as stated above. Initial Evaluation Date: 07/09/14 Discharge Recommendations: Patient would benefit from continued therapeutic interventions 2-3 times a week as provided in a home environment to progress toward functional goals. Equipment needs: Patient has all necessary equipment. Total time spent with patient: 24 minutes Total timed interventions: 24 minutes for functional therapeutic exercise Sharri River PT, DPT 07/12/2014 Pager: [phone] Physical Therapy Inpatient Rehabilitation Department Wilfred Nelson MD - 07/12/2014 7:29 AM EST Neurology Progress Note Patient Name: Bucky Acevedo Admit Date: 07/08/2014 Patient ID: Bucky Acevedo is a 54 y.o. 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 Active Issues: Inflammatory myopathy Secondary Problems: DM HTN HLD Obesity Interval History: No acute events. NIFs stable (-50). Patient feels well, but thinks his strength has not improved much. Medications: Scheduled Meds: ??? insulin glargine 25 Units Subcutaneous Nightly ??? immune globulin 20 g Intravenous Q24H And ??? immune globulin 20 g Intravenous Q24H And ??? immune globulin 5 g Intravenous Q24H ??? insulin glargine 25 Units Subcutaneous Daily ??? mycophenolate 500 mg Oral Daily ??? atenolol 50 mg Oral Daily ??? ferrous sulfate 325 mg Oral BID ??? multivitamin 1 tablet Oral Daily ??? traMADol 100 mg Oral BID ??? enoxaparin 40 mg Subcutaneous Daily ??? docusate sodium 100 mg Oral BID ??? insulin aspart 1-4 Units Subcutaneous TID AC ??? lisinopril 40 mg Oral Daily And ??? hydrochlorothiazide 25 mg Oral Daily ??? esomeprazole 40 mg Oral Daily Continuous Infusions: PRN Meds:.ondansetron, magnesium hydroxide, polyethylene glycol, bisacodyl, bisacodyl, lactulose, acetaminophen, dextrose 50% OR glucagon (human recombinant) Physical Exam: Vitals: Temp: [36.6 ??C (97.9 ??F)-37.6 ??C (99.7 ??F)] Heart Rate: [64-78] Resp: [16-18] BP: (133-155)/(59-71) SpO2: [94 %-99 %] General: Middle aged male in bed, NAD. MS: Alert, oriented, clear language, no dysarthria CN: PERRL, EOMI, visual cano full, no facial asymmetry Motor: Normal bulk and tone. No fasciculations. No tremors. No myoclonus. Strength generally slightly weaker on the right; 3+/5 on the right and 4-/5 on the left upper extremities, finger abduction andgrip 4+/5 bl, 3+ in the proximal LE muscles on the right, and 4- on the left, dorsiflexion/plantarflexion 4+/5 bl. Reflexes: absent reflexes in the lower extremity. Equivocal toes. Labs: Recent Results (from the past 24 hour(s)) POCT GLUCOSE Result Value Ref Range POC Glucose 77 60 - 199 mg/dL POCT GLUCOSE Result Value Ref Range POC Glucose 121 60 - 199 mg/dL POCT GLUCOSE Result Value Ref Range POC Glucose 106 60 - 199 mg/dL POCT GLUCOSE Result Value Ref Range POC Glucose 109 60 - 199 mg/dL POCT GLUCOSE Result Value Ref Range POC Glucose 99 60 - 199 mg/dL POCT GLUCOSE Result Value Ref Range POC Glucose 104 60 - 199 mg/dL Diagnostic Tests and Imaging: No new imaging Assessment: Bucky Acevedo is a 54 y.o. 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 He has a history of DVTs thought to be secondary to IVIG therapy, discussed with hematology, he is on prophylactic lovenox for now. Today is day 4 of 5 day IVIG course. Will stop pulm mechanics, stable for the last 3 days. Somewhat unrelated, he has a history of chronic gastroparesis and abdominal pain. Prior to admissionhepatitis A was checked Joann Giordano ([employer]) - GI service, and incidentally is positive. Discussedwith lab, antibody checked was for IgG, I have sent for IgM. He is scheduled for an outpatient abdominal ultrasound for tomorrow. Plan: #Myositis: -neuro check & vitals q4h / q4h -IVIG x 5 days 400 mg/kg/dose (today day 4/5) - Continue CellCept 50mmg qd #DM -ISS - Continue lantus 25u BID #HTN/ASCVD - Continue Atenolol 50mg qd - Continue Lisinopril 40mg qd - Continue HCTZ 25mg qd #Other -lovenox 40mg SC daily -RBOs -SCDs -home tramadol 100mg BID -regular diet -tylenol PRN -up with assistance - PT/OT # FULL code Nilesh Kay MD General Neurology Pager: [phone] Neurology Attending I saw and evaluated the patient with the neurology team. I have reviewed the resident's history during the visit and I agree with the details as written. My physical examination confirms the resident'sfindings. The assessment and plan were formulated in discussion with me at the time of the visit Shayan agree with them as documented. Patient is autoimmune myopathy is admitted following exacerbation of symptoms. Exam is noteworthy for mild weakness only. He is receiving a course of IVIG and is perhaps a little improved. Wilfred Nelson MD [place] [address] Pager #[phone] Email: [email or web address] Svetlana Haas RCP - 07/11/2014 9:49 PM EST 07/11/14 1940 Pulmonary Mechanics Negative Inspiratory Force (cm H2O) -50 Vital Capacity (mL) 3.2 Spont. Tidal Volume (mL) 1500 Resting RR 18 pt on ra sat 98. Pt does 1500 on IS, -50 nif, vc 3.2 izabel well ? Need for further pulm mechanics Ellen Hernandez RN - 07/11/2014 2:58 PM EST Problem: General Plan of Care Goal: Plan of Care Review Outcome: Ongoing (Interventions Implemented as Appropriate) 07/11/14 Coping/Psychosocial Response Interventions Plan of Care Reviewed with patient Plan of Care Review Plan of Care Outcome Status ongoing (interventions implemented as appropriate) Progress progress toward functional goals as expected OUTCOME EVALUATION NOTE: OUTCOME SUMMARY: IVIG administration #3 administered in a.m. w/in policy guidelines as ordered. Right LFA IV line w/os/s inflammation or clotting. Special attention to this line to avoid clotting off as per lines. OOBw/ cane or IV pole. IV kep KVO. Pt fully A+Ox4. Showered. Ambulated many times around [place] and down [place]. PLAN MOVING FORWARD: IVIG administration #4 OOB with assist and cane Neuro checks Is/Os INDIVIDUALIZED FALL PREVENTION: Assistance: OOB w/ supervisory assist w/cane Supervision: Bed alarm, IV site flushing well w/ no s/s clotting or infiltration/induration. Surveillance: Hourly rounding; bedside report for safety CPG GOAL OUTCOME EVALUATION: Problem: Fall/Trauma/Injury Risk (Adult, Obstetrics) Goal: Identify Signs and Symptoms and Related Risk Factors Signs and symptoms and related risk factors are identified upon initiation of Human Response Clinical Practice Guideline (CPG) Outcome: Ongoing (Interventions Implemented as Appropriate) Pt free from falls/trauma this shift. Kathleen Loera RCP - 07/11/2014 1:59 PM EST Pt was sitting up in a chair on RA. NIF -50 VC 2.2 m/L 31.63 cc/per kg Fredy Peña MD - 07/11/2014 7:13 AM EST Neurology Progress Note Patient Name: Bucky Acevedo Admit Date: 07/08/2014 Attending: Dr. Casiano Patient ID: Bucky Acevedo is a 54 y.o. male who was admitted with inflammatory myopathy for IVIG treatment Active Issues: Inflammatory myopathy Secondary Problems: DM HTN HLD Obesity Interval History: No acute events. NIFs stable. BS a little low yesterday FS 75. Reccommended taking extra snack at night. Medications: Scheduled Meds: ??? insulin glargine 50 Units Subcutaneous Nightly ??? immune globulin 20 g Intravenous Q24H And ??? immune globulin 20 g Intravenous Q24H And ??? immune globulin 5 g Intravenous Q24H ??? insulin glargine 25 Units Subcutaneous Daily ??? mycophenolate 500 mg Oral Daily ??? atenolol 50 mg Oral Daily ??? ferrous sulfate 325 mg Oral BID ??? multivitamin 1 tablet Oral Daily ??? traMADol 100 mg Oral BID ??? enoxaparin 40 mg Subcutaneous Daily ??? docusate sodium 100 mg Oral BID ??? insulin aspart 1-4 Units Subcutaneous TID AC ??? lisinopril 40 mg Oral Daily And ??? hydrochlorothiazide 25 mg Oral Daily ??? esomeprazole 40 mg Oral Daily Continuous Infusions: PRN Meds:.ondansetron, magnesium hydroxide, polyethylene glycol, bisacodyl, bisacodyl, lactulose, acetaminophen, dextrose 50% OR glucagon (human recombinant) Physical Exam: Vitals: Temp: [36.7 ??C (98.1 ??F)-37.4 ??C (99.3 ??F)] Heart Rate: [66-71] Resp: [18-20] BP: (131-144)/(53-67) SpO2: [95 %-100 %] Constitutional: Patient of apparent stated age, no acute distress Neuro: MS: Alert, oriented, clear language, no dysarthria CN: PERRL, EOMI, visual cano full, no facial asymmetry Motor: Normal bulk and tone. Slightly weaker in the right upper extremity compared to the left upperextremity more proximally 3/5 on the right and 4/5 on the left, but strong distally. weak in the bilateral lower extremities more on the right proximally compared to distally also 3/5 on the right and 4/5 on the left. Sensation: Intact to light touch Reflexes: absent reflexes in the lower extremity. Equivocal toes. Coordination: not assessed Gait: not assessed Labs: Recent Results (from the past 24 hour(s)) POCT GLUCOSE Result Value Ref Range POC Glucose 86 60 - 199 mg/dL POCT GLUCOSE Result Value Ref Range POC Glucose 149 60 - 199 mg/dL POCT GLUCOSE Result Value Ref Range POC Glucose 116 60 - 199 mg/dL POCT GLUCOSE Result Value Ref Range POC Glucose 113 60 - 199 mg/dL POCT GLUCOSE Result Value Ref Range POC Glucose 95 60 - 199 mg/dL POCT GLUCOSE Result Value Ref Range POC Glucose 74 60 - 199 mg/dL POCT GLUCOSE Result Value Ref Range POC Glucose 75 60 - 199 mg/dL Diagnostic Tests and Imaging: No new imaging Assessment: Bucky Acevedo is a 54 y.o. male who was admitted with inflammatory myopathy for IVIG treatment. Given his history of provoked clotting hematology was consulted. Their recommendations are appreciated. IV line has been placed successfully and patient will receive 5 days of IVIG. Will continue Lovenoxfor DVT prophylaxis while inpatient. Dermatology was consulted. Does not think this is dermatomyositis. Plan: #myopathy -floor level of care -neuro check & vitals q4h / q4h -consult derm -consult heme -IVIG x 5 days 400 mg/kg/dose (today day 3) #DM -ISS -home lantus 25 AM -decrease PM lantus from 75-->50 # prophylaxis -lovenox 40mg SC daily -RBOs -SCDs -home tramadol # supportive care -regular diet -tylenol PRN -up with assistance # FULL code Fredy Peña MD Pager#: [phone] General Neurology Pager: [phone] Associated attestation - Celso Casiano MD - 07/11/2014 3:52 PM EST I have seen the patient and reviewed the resident's above history and I agree with the details as written. The assessment and plan were formulated in discussion with me and I agree with them as documented. Svetlana Hudson MD, RCP - 07/10/2014 9:28 PM EST 07/10/14 1915 Pulmonary Mechanics Negative Inspiratory Force (cm H2O) -50 Vital Capacity (mL) 2.9 Spont. Tidal Volume (mL) 1500 Resting RR 18 pt on ra sat =100. Pt vc 2.9L, ri=1014, nif= -50 izabel well Uzma Lin RCP - 07/10/2014 4:45 PM EST 07/10/14 0900 Pulmonary Mechanics Negative Inspiratory Force (cm H2O) -50 Vital Capacity (mL) 2.2 Resting RR 16 Patient Effort Good Patient Position sitting Did the above Pulm Mechs. Will continue to monitor closely. Uzma Lin RCP - 07/10/2014 2:35 PM EST 07/10/14 0900 Pulmonary Mechanics Negative Inspiratory Force (cm H2O) -50 Vital Capacity (mL) 2.2 Resting RR 16 Patient Effort Good Patient Position sitting Pulmonary Mechanics performed with good pt effort. Will continue to monitor closely. Deric Dominguez MD - 07/10/2014 7:19 AM EST Neurology Progress Note Patient Name: Bucky Acevedo Admit Date: 07/08/2014 Attending: Dr. Casiano Patient ID: Bucky Acevedo is a 54 y.o. male who was admitted with inflammatory myopathy for IVIG treatment Active Issues: Inflammatory myopathy Secondary Problems: DM HTN HLD Obesity Interval History: Labs were drawn, magnesium was replaced Seen by hematology and recommendations appreciated IV started IVIG given last night with no issue CK has trended down since last office visit Slightly hypoglycemic in the AM and last night Medications: Scheduled Meds: ??? insulin glargine 50 Units Subcutaneous Nightly ??? insulin glargine 25 Units Subcutaneous Daily ??? mycophenolate 500 mg Oral Daily ??? atenolol 50 mg Oral Daily ??? ferrous sulfate 325 mg Oral BID ??? multivitamin 1 tablet Oral Daily ??? traMADol 100 mg Oral BID ??? enoxaparin 40 mg Subcutaneous Daily ??? docusate sodium 100 mg Oral BID ??? insulin aspart 1-4 Units Subcutaneous TID AC ??? lisinopril 40 mg Oral Daily And ??? hydrochlorothiazide 25 mg Oral Daily ??? esomeprazole 40 mg Oral Daily Continuous Infusions: PRN Meds:.ondansetron, magnesium hydroxide, polyethylene glycol, bisacodyl, bisacodyl, lactulose, acetaminophen, dextrose 50% OR glucagon (human recombinant) Physical Exam: Vitals: Temp: [36.3 ??C (97.3 ??F)-36.8 ??C (98.2 ??F)] Heart Rate: [59-72] Resp: [18] BP: (122-154)/(51-73) SpO2: [97 %-100 %] Constitutional: Patient of apparent stated age, no acute distress Neuro: MS: Alert, oriented, clear language, no dysarthria CN: PERRL, EOMI, visual cano full, no facial asymmetry Motor: Normal bulk and tone. Slightly weaker in the right upper extremity compared to the left upperextremity more proximally 3/5 on the right and 4/5 on the left, but strong distally. weak in the bilateral lower extremities more on the right proximally compared to distally also 3/5 on the right and 4/5 on the left. Sensation: Intact to light touch Reflexes: absent reflexes in the lower extremity. Equivocal toes. Coordination: not assessed Gait: not assessed Labs: Recent Results (from the past 24 hour(s)) MAGNESIUM Result Value Ref Range Magnesium 0.64 (*) 0.69 - 1.07 mmol/L PHOSPHORUS Result Value Ref Range Phosphorus 3.9 2.5 - 4.5 mg/dL PROTHROMBIN TIME Result Value Ref Range PT 15.6 (*) 12.5 - 15.5 sec INR 1.2 (*) 0.9 - 1.1 APTT Result Value Ref Range PTT 33 25 - 35 sec CK Result Value Ref Range CK, Total 5535 (*) 0 - 200 unit/L BASIC METABOLIC PANEL (NON-FASTING) Result Value Ref Range Glucose Lvl 84 60 - 199 mg/dL BUN 18 10 - 20 mg/dL Creatinine 0.92 0.80 - 1.50 mg/dL Sodium 141 135 - 145 mmol/L Potassium 4.1 3.5 - 5.0 mmol/L Chloride 104 98 - 107 mmol/L CO2 24 22 - 31 mmol/L Anion Gap 13 5 - 15 mmol/L Calcium 9.4 8.5 - 10.5 mg/dL Estimated GFR >60 >=60 HEMOGRAM Result Value Ref Range WBC 6.5 4.0 - 10.0 x10(3)/mcL RBC 4.05 (*) 4.63 - 6.08 x10(6)/mcL Hemoglobin 11.5 (*) 13.7 - 17.5 gm/dL Hematocrit 35.3 (*) 40.0 - 51.0 % MCV 87.2 79.0 - 92.0 fL MCH 28.4 25.6 - 32.2 pg MCHC 32.6 32.0 - 36.5 gm/dL Platelets 130 (*) 145 - 370 x10(3)/mcL RDWSD 48.0 (*) 35.0 - 46.0 fL RDWCV 15.1 (*) 10.9 - 14.4 % MPV 11.3 9.0 - 12.0 fL DIFFERENTIAL, AUTOMATED Result Value Ref Range Neutrophils % 62.9 Neutr Abs (ANC) 4.09 1.50 - 6.30 x10(3)/mcL Lymphocytes % 23.8 Lymphocytes Abs 1.6 1.0 - 3.6 x10(3)/mcL Monocytes % 8.8 Monocyte Abs 0.6 0.2 - 1.0 x10(3)/mcL Eosinophils % 4.0 Eosinophils Abs 0.3 0.0 - 0.5 x10(3)/mcL Basophils % 0.5 Basophils Abs 0.0 0.0 - 0.2 x10(3)/mcL Immature Gran % 0.00 Tamara Gran Abs 0.00 0.00 - 0.05 x10(3)/mcL POCT GLUCOSE Result Value Ref Range POC Glucose 115 60 - 199 mg/dL URINALYSIS WITH MICROSCOPIC Result Value Ref Range Glucose UA Negative Negative mg/dL Protein UA Negative Negative mg/dL Bilirubin UA Negative Negative mg/dL Urobilinogen UA Normal Normal mg/dL pH UA 6.0 5.0 - 8.0 Blood UA Small (*) Negative mg/dL Ketones UA Negative Negative mg/dL Nitrite UA Negative Negative Leukocytes UA Large (*) Negative mcL Appearance UA Hazy (*) Clear Spec [place] UA 1.014 1.002 - 1.030 Color UA Yellow Yellow RBC UA 4 (*) 0 - 3 /HPF WBC UA 57 (*) 0 - 3 /HPF Bacteria UA Rare (*) None /HPF Squam Epith UA <1 <=4 /HPF POCT GLUCOSE Result Value Ref Range POC Glucose 131 60 - 199 mg/dL POCT GLUCOSE Result Value Ref Range POC Glucose 151 60 - 199 mg/dL POCT GLUCOSE Result Value Ref Range POC Glucose 76 60 - 199 mg/dL POCT GLUCOSE Result Value Ref Range POC Glucose 62 60 - 199 mg/dL POCT GLUCOSE Result Value Ref Range POC Glucose 94 60 - 199 mg/dL POCT GLUCOSE Result Value Ref Range POC Glucose 65 60 - 199 mg/dL POCT GLUCOSE Result Value Ref Range POC Glucose 86 60 - 199 mg/dL Diagnostic Tests and Imaging: No new imaging Assessment: Bucky Acevedo is a 54 y.o. male who was admitted with inflammatory myopathy for IVIG treatment. Given his history of provoked clotting hematology was consulted. Their recommendations are appreciated. IV line has been placed successfully and patient will receive 5 days of IVIG. We'll consider subcuta neous hygiene as an outpatient, then alternative to IVIG. Will continue Lovenox for DVT prophylaxis while inpatient. Dermatology was consulted, awaiting their recommendations, as this could be related to a more systemic process, dermatomyositis, although he does not seem to have significant pain. Plan: #myopathy -floor level of care -neuro check & vitals q4h / q4h -consult derm -consult heme -IVIG x 5 days 400 mg/kg/dose (today day 07/15) #DM -ISS -home lantus 25 AM -decrease PM lantus from 75-->50 # prophylaxis -lovenox 40mg SC daily -RBOs -SCDs -home tramadol # supportive care -regular diet -tylenol PRN -up with assistance # FULL code Deric Dominguez Neurology Resident General Neurology Pager: [phone] Associated attestation - Celso Casiano MD - 07/10/2014 10:54 AM EST I have seen the patient and reviewed the resident's above history and I agree with the details as written. The assessment and plan were formulated in discussion with me and I agree with them as documented. Alyssa Mcelroy MD, RN - 07/10/2014 7:00 AM EST MD Dominguez notified of patient's low blood sugars overnight. Lantus dose to be adjusted. Ralph Reyes RCP - 07/10/2014 12:04 AM EST Pulmonary mechanics was not performed due to pt sleeping, will continue to monitor. Kathleen Loera RCP - 07/09/2014 6:25 PM EST Pulmonary mechanics performed while pt was sitting up in chair. NIF -50 VC 1100 Jhonathan Diaz RN - 07/08/2014 6:30 PM EST Patient arrived to unit at 1810, oriented to bed, call howe and call howe usage. Will continue to monitor. documented in this encounter H&P Notes Wilfred Nelson MD - 07/08/2014 12:41 AM EST Neurology Admission History and Physical Patient name: Bucky Acevedo Date of : 1960 PCP: SAMANTHA BAER MD Case discussed with Dr Chew CC: worsening weakness HPI: Bucky Acevedo is a 54 y.o. Right handed man who has been followed by [facility] for myopathy since 2009. This presumably is from taking lipitor 100mg for 10 years. 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 He has had the best response to IVIG. Unfortunately, he has poor IV access and was given a port for therapy which accrued a DVT 01/21 and thus he has not been on IVIG therapy since then. He has completed 6 months of coumadin. He was seen in urgent follow-up this week for progressive weakness, worsening slowly over the last few months and then more noticable the last 2 weeks. At the start of the new year, he was not having limited ability to climb into his car and a few other daily activities which he no longer accomplishes due to weakness. He is not on ASA because either his GI doctor or his PCP told him to stop taking it (likely possible could have been instructions from oncology who is following him for anemia). His summarized health history based on eD review is outlined in chart below. Date Service S/O A/P 06/19 Neuro Progressive muscle weakness, CK 5000, sees Dr Singer in [place], responded toIVIG and prednisone, bx showed necrotizing myopathy. Plan IVIG x 1 year and methotrexate starting 09/17 Attributed to lipitor 100mg x 10 yrs 10/18 Neuro Worse weakness. Mitochondrial mutations - TPMT normal Myositis ab panel: JULIANNA, PM/SCL, IL-2, PL-7, PL-12, E5, OJ, KU, U2, SNRNP, SRP 05/20 Neuro Symptoms worse, CK 1000 On disability 11/19 Neuro Symptoms stable, exam stronger, CK 146, new fatigue, nausea, vomiting. DVT UE at an IV sight. Completed Coumadin 3 months. Lantus for bg control, IVIG twice monthly, refer GI for possible gastroparesis 06/22 Neuro Weaker, falls, CK 1200, port placed for IVIG 12/19-06/22 no IVIG for insurance problem. Stopped MTX 01/20 because of skin hives (blistering rash documented previously) 01/20 Neuro Exam waxing and waning, pustular erythema which resolved after stopping MTX, never saw derm GI referral, anemia studies 03/22 GI Easy bruising, voice change, prior EGD, abd US, and CT a/p reported normal Gastroparesis diet and GES 05/22 Heme/onc Anemia, thrombocytopenia despite no MTX x 6 months, hepatosplenomegaly, marrow bx normal 06/23 Hepato Hepatic enceph mild and chronic x 1 year (abnormal sleep patterns), HBV vaccine, DX portal HTN, HORTON cirrhosis, gall stones Rifaximin 08/21 Neuro Exam improved, CK 248, DM neuropathy on exam, worse back pain Tramadol for back pain 100BID, stops seeing Marie 08/21 Hepato New EGD barretts, colonoscopy ok, EUS pancreatic cyst (benign but possible pre-malignantpotential), n/v improved 09/21 Neuro Right knee pain only, ESR >120, CK 719 10/21 Heme/onc Considered EPO (GFR too good), unsure source of anemia 01/21 Hepat MRI abd ok Stop rifaximin, repeat MRI abd 1 year 02/21 Heme/onc ESR 64, DVT in left mediport (second DVT) Coumadin 6 months 11/21- 05/23, Fe supplement 1 yr. 03/23 Neuro Holding IVIG, CK 3555 06/30/14 Heme/onc Port removed Fe deficiency anemia 07/09/14 Neuro MRI abd repeated, rash has returned, might get sara. Lupus anticoag, factor V, protein C/S, prothrombin mut all negative. MTHFR heterozygous, antithrombin 3 low. ESR 53, CRP 9.1, CK 8581 Past Medical History: Past Medical History Diagnosis Date ??? Diabetes ??? Hypertension ??? Hyperlipidemia ??? Gout ??? Obesity ??? Kidney stone ??? 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 Shingles 2009 ??? DM II (diabetes mellitus, type II), controlled ??? Cirrhosis Medications: Prescriptions prior to admission Medication Sig Dispense Refill ??? insulin glargine (LANTUS) Solution Inject 25 Units subcutaneously daily. ??? multivitamin Capsule Take 1 capsule by mouth daily. ??? ferrous sulfate 325 mg (65 mg iron) Tablet Take 1 tablet by mouth 2 times daily. 60 tablet 12 ??? omeprazole (PRILOSEC) 40 mg capsule Take 1 capsule by mouth daily. 90 capsule 3 ??? indomethacin (INDOCIN) 25 mg capsule Take 12.5 mg by mouth 2 times daily (with meals). As needed ??? ondansetron (ZOFRAN) 4 mg tablet Take 1 tablet by mouth as needed. 20 tablet 3 ??? INSULIN LISPRO (HUMALOG SUBQ) Inject 12 Units subcutaneously 3 times daily (with meals). ??? insulin glargine (LANTUS) 100 unit/mL vial injection Inject 75 Units subcutaneously nightly. ??? lisinopril-hydrochlorothiazide (PRINZIDE;ZESTORETIC) 20-12.5 mg per tablet Take 2 tablets by mouth daily. ??? atenolol (TENORMIN) 100 mg tablet Take 50 mg by mouth daily. ??? traMADol (ULTRAM) 50 mg tablet Take 100 mg by mouth 2 times daily. Allergies Allergen Reactions ??? Methotrexate Hives, Itching and Rash ??? Morphine Itching ??? Jynsdri-Wea-Srs Reductase Inhibitors Myopathy Family History Problem Relation Age of Onset ??? Colorectal Cancer Mother 59 ??? Diabetes Mother ??? Myocardial Infarction Father first [place] at 36 ??? Coronary Artery Disease Father ??? Stomach Cancer uncle ??? Obesity Mother ??? Hypertension Father ??? Hyperlipidemia Father ??? Type 2 Diabetes Paternal Uncle ??? Obesity Sister ??? Type 2 Diabetes Sister ??? Cirrhosis Paternal Aunt Alcohol Abuse History Social History Narrative Lives with of 35 years. Feels safe at home. Disabled since 2009. 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 Review of systems: Constitutional: No fevers or chills Eyes: No vision changes, no diplopia, no blurry vision ENT: No rhinorrhea or pharyngitis, no meningismus CV: No chest pain or palpitations Resp: No cough, no shortness of breath GI: No nausea, vomiting, diarrhea or constipation : No dysuria, no incontinence Heme: No bleeding or bruising Endo: No diabetes or thyroid disease Neuro: See HPI Psych: No depression, normal sleep [x] Review of systems otherwise negative Physical Exam: Vitals: Temp: [36.8 ??C (98.2 ??F)] Heart Rate: [67-72] Resp: [20-24] BP: (127-136)/(56-59) SpO2: [97 %-100 %] Constitutional: Patient of apparent stated age, well nourished, well developed, no acute distress Neck: Supple, no meningismus, no carotid bruit CV: RRR, S1, S2, no murmur Resp: CTAB Abd: Soft, nontender, nondistended Ext: No edema but thick ankles, left ankle stiff, frozen Neuro Exam: MS: AAOx4, clear language, no dysarthria, follows commands CN: PERRL, EOMI, no facial asymmetry Motor: Normal bulk and tone. UE: shoulder shrug 5/5 b/l Defective Cigarette Slitter 5/5 b/l 2/5 right 3/5 leftElbow flexion 3/5 right 4/5 left elbow extension 3/5 right 4/5 left Shoulder adbuction 4/5 b/l Shoulder adduction LE: 4- BL hip flexion 3/5 R, 4/5 L Knee extension 3/5 R, 4/5 L Knee flexion 4-/5 R, 4+/5 L Foot dorsiflexion 4-/5 R, 4+/5 L Foot plantar flexion Sensation: Impaired proprioception and light touch of L toes Reflexes: DTRs 1+ throughout Coordination: LAURA and finger tapping smooth & symmetric Gait: not assessed Labs: Recent Results (from the past 24 hour(s)) POCT GLUCOSE Result Value Ref Range POC Glucose 122 60 - 199 mg/dL Diagnostic Tests and Imaging: Assessment: Mr Acevedo is a 54yo man with weakness. The patient exhibits proximal weakness consistent with myopathy. The case is unusual for PM also unusual for [employer]. Likely has infammatory myopathy. MTHFR mutationheterozygote.The patient has had trouble with maintaining sites for IVIG and could might benefit from subcutaneous IVIG. So we are going to look into acquiring this and arrange for inpatient stay to initiate this. Furthermore, because the patient seems to have clotting associated with IVIG in the past, we will give aspirin along with IVIG. We will also repeat muscle biopsy, and review prior slides ifstill available, to reconsider the diagnosis.Other considerations: hizentra (ScIG) vs IVIG, Start cellcept 500 daily and if tolerates GI salcido will increase. #myopathy -admit to neurology, floor level of care -neuro check & vitals q4h / q4h -aspirin daily tomorrow -12 lead EKG -PT/OT/GENETIC COUNSELOR -consult derm -consult heme #DM -ISS and home lantus # prophylaxis -lovenox 40mg SC daily -RBOs -SCDs -home tramadol # supportive care -regular diet -tylenol PRN -up with assistance # FULL code Cristin Parekh MD General Neurology [id number] Neurology Attending I saw and evaluated the patient with the neurology team. I have reviewed the resident's history during the visit and I agree with the details as written. My physical examination confirms the resident'sfindings. The assessment and plan were formulated in discussion with me at the time of the visit Shayan agree with them as documented. Patient is autoimmune myopathy is admitted following exacerbation of symptoms. Exam is noteworthy for mild weakness only. He has in the past responded to IVIG. Owing to his coagulopathy there is some doubt as to how it is best to administer IVIG. We will obtain consultation from hematology before proceeding. Wilfred Nelson MD [place] [address] Pager #[phone] Email: [email or web address] documented in this encounter Miscellaneous Notes Plan of Care - Jennifer Lieberman RN - 07/13/2014 1:33 PM EST Problem: General Plan of Care Goal: Plan of Care Review Outcome: Outcome (s) achieved Date Met: 07/13/14 07/13/14 1330 Coping/Psychosocial Response Interventions Plan of Care Reviewed with patient Plan of Care Review Plan of Care Outcome Status outcome achieved Progress progress toward functional goals as expected OUTCOME EVALUATION NOTE: OUTCOME SUMMARY: Patient alert and oriented. Last dose of IVIG given. Ambulating independently with cane. PLAN MOVING FORWARD: Patient to be discharged to home. INDIVIDUALIZED FALL PREVENTION: Assistance: Independent with ADLs Supervision: Nursing Surveillance: Wilbert, Hourly rounding CPG GOAL OUTCOME EVALUATION: Goal: Individualization and Mutuality Outcome: Outcome (s) achieved Date Met: 07/13/14 Goal: Fall Prevention-Safe Patient Handling Outcome: Outcome (s) achieved Date Met: 07/13/14 07/13/14 0341 07/13/14 0948 07/13/14 0952 Safety Interventions Safety Precautions/Fall Reduction -- -- -- Musculoskeletal Interventions Activity/Level of Assistance -- -- -- Positioning -- -- independent Muscle Strengthening activity/mobility promoted -- -- Self-Care Promotion independence encouraged while providing assistance -- -- Activity and Safety Assistive Device Cane -- -- Peralta Fall Risk History of Falling -- 25 -- Secondary Diagnosis -- 15 -- Ambulatory Aids -- 15 -- Intravenous Therapy/Heparin/Saline Lock -- 20 -- Gait/Transferring -- 0 -- Mental Status -- 0 -- Score -- 75 -- OTHER Peralta Fall Risk -- High (45 and higher) -- 07/13/14 1000 07/13/14 1200 Safety Interventions Safety Precautions/Fall Reduction -- environmental modification;fall reduction program maintained;family at bedside;nonskid shoes/slippers when out of bed;room near unit station;supervised activity Musculoskeletal Interventions Activity/Level of Assistance up ad darin;with cane -- Positioning -- -- Muscle Strengthening -- -- Self-Care Promotion -- -- Activity and Safety Assistive Device -- -- Peralta Fall Risk History of Falling -- -- Secondary Diagnosis -- -- Ambulatory Aids -- -- Intravenous Therapy/Heparin/Saline Lock -- -- Gait/Transferring -- -- Mental Status -- -- Score -- -- OTHER Peralta Fall Risk -- -- Goal: Infection Control Outcome: Outcome (s) achieved Date Met: 07/13/14 07/13/14 1330 Coping/Psychosocial Response Interventions Counseling emotional support provided;calming techniques promoted;understanding of situation facilitated;verbalization of feelings encouraged Safety Interventions Isolation Precautions standard precautions maintained Infection Prevention blood glucose management;bronchial hygiene promoted;environmental surveillance;rest/sleep promoted;promote handwashing;nutrition promoted;hydration promoted Goal: Discharge Needs Assessment Outcome: Outcome (s) achieved Date Met: 07/13/14 Problem: Fall/Trauma/Injury Risk (Adult, Obstetrics) Goal: Identify Signs and Symptoms and Related Risk Factors Signs and symptoms and related risk factors are identified upon initiation of Human Response Clinical Practice Guideline (CPG) Outcome: Outcome (s) achieved Date Met: 07/13/14 07/09/14 205 Fall/Trauma/Injury Risk Personal Related Risk Factors (Fall/Trauma/Injury Risk) emotional state;fatigue/slowed reaction time;gait/mobility problems/weakness Environmental Related Risk Factors (Fall/Trauma/Injury Risk) environment unfamiliar Physiological Related Risk Factors (Fall/Trauma/Injury Risk) musculoskeletal alterations Treatment Related Related Risk Factors (Fall/Trauma/Injury Risk) invasive/noninvasive equipment;medications, greater than 4 daily Signs and Symptoms (Fall/Trauma/Injury Risk) presence of risk factors Goal: Absence of Trauma/Injury/Falls Patient will demonstrate the desired outcomes. Outcome: Outcome (s) achieved Date Met: 07/13/14 07/13/14 1330 Fall/Trauma/Injury Risk (Adult, Obstetrics) Absence of Trauma/Injury/Falls achieves outcome Plan of Care - Robles Donovan RN - 07/13/2014 3:50 AM EST Problem: General Plan of Care Goal: Plan of Care Review 07/13/14 034 Plan of Care Review Plan of Care Outcome Status ongoing (interventions implemented as appropriate) Progress no change OUTCOME EVALUATION NOTE: OUTCOME SUMMARY: Patient oriented to his own ability. Strengths are 4/4 bilaterally tonight. Ambulating independentlywith his cane. PLAN MOVING FORWARD: Possible discharge later today after last IVIG dose. INDIVIDUALIZED FALL PREVENTION: Assistance: 1 standby or independent Supervision: nursing Surveillance: darnell Atkins CPG GOAL OUTCOME EVALUATION: Goal: Fall Prevention-Safe Patient Handling 07/12/14199907/13/14 034 Safety Interventions Safety Precautions/Fall Reduction -- environmental modification;fall reduction program maintained;nonskid shoes/slippers when out of bed;room near unit station Musculoskeletal Interventions Activity/Level of Assistance -- up ad darin Positioning -- independent Muscle Strengthening -- activity/mobility promoted Self-Care Promotion -- independence encouraged while providing assistance Activity and Safety Assistive Device -- Cane Peralta Fall Risk History of Falling 25 -- Secondary Diagnosis 15 -- Ambulatory Aids 15 -- Intravenous Therapy/Heparin/Saline Lock 0 -- Gait/Transferring 10 -- Mental Status 0 -- Score 65 -- OTHER Peralta Fall Risk High (45 and higher) -- Goal: Infection Control 07/13/14 034 Coping/Psychosocial Response Interventions Counseling personal strengths integrated Safety Interventions Isolation Precautions standard precautions maintained Infection Prevention rest/sleep promoted;environmental surveillance Goal: Discharge Needs Assessment 07/13/14 0341 Discharge Needs Assessment Concerns to be Addressed no discharge needs identified Equipment Needed After Discharge cane, straight Living Environment Transportation Available family or friend will provide Self-Care Equipment Currently Used at Home cane, straight Plan of Care - Cathy Laurent RN - 07/12/2014 3:25 PM EST Problem: General Plan of Care Goal: Discharge Needs Assessment Outcome: Ongoing (Interventions Implemented as Appropriate) 07/08/14 1800 07/09/14 0639 07/12/14 0604 Discharge Needs Assessment Concerns to be Addressed -- no discharge needs identified -- Living Environment Transportation Available -- -- family or friend will provide Self-Care Equipment Currently Used at Home cane, straight -- -- Comments: care OUTCOME EVALUATION NOTE: OUTCOME SUMMARY: home PLAN MOVING FORWARD: In progress when testing done INDIVIDUALIZED FALL PREVENTION: Assistance: independent Supervision: independent Surveillance: observation for sadfety CPG GOAL OUTCOME EVALUATION: Hourly rounding Close observation IVIG HOME SOON Plan of Care - Cathy Laurent RN - 07/12/2014 3:19 PM EST Problem: Fall/Trauma/Injury Risk (Adult, Obstetrics) Intervention: Muscle Strengthening 07/12/14 1518 Musculoskeletal Interventions Muscle Strengthening activity/mobility promoted Intervention: Self-Care Promotion 07/12/14 1518 Musculoskeletal Interventions Self-Care Promotion independence encouraged while providing assistance Goal: Absence of Trauma/Injury/Falls Patient will demonstrate the desired outcomes. Outcome: Ongoing (Interventions Implemented as Appropriate) 07/12/14 1518 Fall/Trauma/Injury Risk (Adult, Obstetrics) Absence of Trauma/Injury/Falls making progress toward outcome Comments: OUTCOME EVALUATION NOTE: OUTCOME SUMMARy ambulating independently in room PLAN MOVING FORWARD: discharge soon INDIVIDUALIZED FALL PREVENTION: Assistance: 1 assist at times Supervision: 1 assist outside room for long distances Surveillance: no issues CPG GOAL OUTCOME EVALUATION: hourly rounding/ Close observation/ IVIG / pain control Discharge Summary - Wilfred Nelson MD - 07/12/2014 8:59 AM EST Discharge Summary Patient Name: Bucky Acevedo Patient Age: 54 y.o. Language: Montenegrin Race: White Ethnicity: Not nor Admit Date: 07/08/2014 Discharge Date: 07/13/2014 Attending Physician: Wilfred Nelson MD Discharge Physician: Dr. Nelson Follow-up Recommendations for Providers: 1) On discharge he will receive IVIG therapy on a monthly basis: 1g IVIG over two days (500mg per day). He will need DVT prophylaxis with Lovenox day prior, days of, and one day after IVIG therapy. We recommend not placing any permanent lines given his propensity to clotting. His next scheduled IVIG doses are scheduled for August 10 and , at [facility]. 2) He was started on CellCept 500mg qd. Will need an outpatient CBC, BMP, LFTs done - if results aresatisfactory, will need to increase CellCept to 1000mg qd. 3) He will need to have a muscle biopsy done - needs to be scheduled 3-5 days prior to monthly IVIG therapy. 4) His PLT and WBC count have slowly trended down since admission, this is likely due to the Cell Cept. Recommend rechecking CBC within one week. 5) Unrelated to his admission - prior to admission he had a hepatitis A Ab checked, that was positive. This is a Hep A IgG antibody. We have sent for the IgM. This will need to be followed up by PCP and/or GI. Inpatient Provider Contact Information: For questions regarding this document or issues related to this hospitalization on the Neurology Service, please contact the author(s) of this discharge summary through the [facility] [employer] . Discharge Diagnoses (Hospital Problems) and Secondary Diagnoses (Chronic Problems): Primary Diagnosis: Necrotizing Myopathy Active Non-Hospital Problems Diagnosis ??? Durand's esophagus [...] Presentation: Bucky Acevedo is a 54 y.o. Right handed man who has been followed by [facility] for myopathy since 2009. 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 He has had the best response to IVIG. Unfortunately,he has poor IV access and was given a port for therapy which accrued a DVT 01/21 and thus he has not been on IVIG therapy since then. He has completed 6 months of coumadin. He was seen in urgent follow-up this week for progressive weakness, worsening slowly over the last few months and then more noticable the last 2 weeks. At the start of the new year, he was not having limited ability to climb into his car and a few other daily activities which he no longer accomplishes due to weakness. He is not on ASA because either his GI doctor or his PCP told him to stop taking it (likely possible could have been instructions from oncology who is following him for anemia). His summarized health history based on [facility] review is outlined in chart below. Date Service S/O A/P 06/19 Neuro Progressive muscle weakness, CK 5000, sees Dr Singer in [place], responded toIVIG and prednisone, bx showed necrotizing myopathy. Plan IVIG x 1 year and methotrexate starting 09/17 10/18 Neuro Worse weakness. Mitochondrial mutations - TPMT normal Myositis ab panel: JULIANNA, PM/SCL, IL-2, PL-7, PL-12, E5, OJ, KU, U2, SNRNP, SRP 05/20 Neuro Symptoms worse, CK 1000 On disability 11/19 Neuro Symptoms stable, exam stronger, CK 146, new fatigue, nausea, vomiting. DVT UE at an IV sight. Completed Coumadin 3 months. Lantus for bg control, IVIG twice monthly, refer GI for possible gastroparesis 06/22 Neuro Weaker, falls, CK 1200, port placed for IVIG 12/19-06/22 no IVIG for insurance problem. Stopped MTX 01/20 because of skin hives (blistering rash documented previously) 01/20 Neuro Exam waxing and waning, pustular erythema which resolved after stopping MTX, never saw derm GI referral, anemia studies 03/22 GI Easy bruising, voice change, prior EGD, abd US, and CT a/p reported normal Gastroparesis diet and GES 05/22 Heme/onc Anemia, thrombocytopenia despite no MTX x 6 months, hepatosplenomegaly, marrow bx normal 06/23 Hepato Hepatic enceph mild and chronic x 1 year (abnormal sleep patterns), HBV vaccine, DX portal HTN, HORTON cirrhosis, gall stones Rifaximin 08/21 Neuro Exam improved, CK 248, DM neuropathy on exam, worse back pain Tramadol for back pain 100BID, stops seeing Marie 08/21 Hepato New EGD barretts, colonoscopy ok, EUS pancreatic cyst (benign but possible pre-malignantpotential), n/v improved 09/21 Neuro Right knee pain only, ESR >120, CK 719 10/21 Heme/onc Considered EPO (GFR too good), unsure source of anemia 01/21 Hepat MRI abd ok Stop rifaximin, repeat MRI abd 1 year 02/21 Heme/onc ESR 64, DVT in left mediport (second DVT) Coumadin 6 months 11/21- 05/23, Fe supplement 1 yr. 03/23 Neuro Holding IVIG, CK 3555 06/30/14 Heme/onc Port removed Fe deficiency anemia 07/09/14 Neuro MRI abd repeated, rash has returned, might get sara. Lupus anticoag, factor V, protein C/S, prothrombin mut all negative. MTHFR heterozygous, antithrombin 3 low. ESR 53, CRP 9.1, CK 8581 Physical Exam at Admission Vitals: Temp: [36.8 ??C (98.2 ??F)] Heart Rate: [67-72] Resp: [20-24] BP: (127-136)/(56-59) SpO2: [97 %-100 %] Constitutional: Patient of apparent stated age, well nourished, well developed, no acute distress Neck: Supple, no meningismus, no carotid bruit CV: RRR, S1, S2, no murmur Resp: CTAB Abd: Soft, nontender, nondistended Ext: No edema but thick ankles, left ankle stiff, frozen Neuro Exam: MS: AAOx4, clear language, no dysarthria, follows commands CN: PERRL, EOMI, no facial asymmetry Motor: Normal bulk and tone. UE: shoulder shrug 5/5 b/l Defective Cigarette Slitter 5/5 b/l 3/5 right 3/5 leftElbow flexion 3/5 right 4/5 left elbow extension 3/5 right 4/5 left Shoulder adbuction 4/5 b/l Shoulder adduction LE: 4- BL hip flexion 3/5 R, 4/5 L Knee extension 3/5 R, 4/5 L Knee flexion 4-/5 R, 4+/5 L Foot dorsiflexion 4-/5 R, 4+/5 L Foot plantar flexion Sensation: Impaired proprioception and light touch of L toes Reflexes: DTRs 1+ throughout Coordination: LAURA and finger tapping smooth & symmetric Gait: not assessed Hospital Course: Bucky Acevedo was admitted to the neurology services for further evaluation of weakness. #Necrotizing Myopathy On admission, the patient exhibited proximal weakness consistent with a myopathy, likely inflammatory, based on prior biopsy results. He is an MTHFR mutation heterozygote. The patient has trouble with maintaining sites for IVIG and has a history of provoked clotting. For this reason he did not get IVIG for many months, and this may account for deterioration. Hematology/Oncology was consulted and havecleared him for a peripheral line through which he will receive IVIG monthly in the future. For this hospitalization He was placed on Lovenox for DVT prophylaxis. He received 5 doses of IVIG (400mg/kg/dose), no complications were observed.There was perhaps slight clinical improvement. Lovenoxcan be given prophylactically prior to infusions in the future #Rash Dermatology was consulted for rash, question of dermatomyositis. They did not think the history of rash or physical exam findings, were consistent with dermatomyositis - see full assessment below. Theyrecommended applying clindamycin solution twice daily to affected areas. The patient was evaluated by Rehabilitation Services and deemed appropriate for discharge to home. There is modest improvement. The patient will continue with monthly IVIG infusions. He will also continue with CellCept. He will followup in the neurology clinic here. Consultations 1. PT/OT 2. Dermatology Assessment/Plan 54 y.o. 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 Dermatology was consulted for further evaluation. On history, lesion description - pustules - that come and go in a intertriginous distribution is consistent w/ hidradenitis suppurativa (HS). Nevertheless, exam has limited findings outside what could be several resolving lesions on the left upper abdomen. No appreciable scaring in that area or in theaxilla. He denies similar lesion present today in the groin. If this is HS - presentation is consistent w/ mild Poe type I dx, and pt. May likely benefit from application of clindamycin topically. Of note - exam and hx are not consistent w/ dermatomyositis at the current time - Recommendations: - clindamycin 1% solution twice daily to the affected areas - - f/u w/ dermatology as outpatient if condition is not adequately controlled 3. Hematology RECOMMENDATIONS: Hx of provoked VTE -hold on alf anticoagulation provided no line placement -however if patient needs a line placement for therapy, or use a of peripheral IV when getting IVIG then would anticoagulate at that time -workup for secondary malignancies: MRI abdomen was neg HCC (repeat UT in 6 mo), BM biopsy on neg for evidence of heme malignancy, colo no evidence of malignancy -MTHFR mutation no association to VTE risk -if possible obtain notes from primary care doc to see event of first right arm clot (per pt sounds superficial) Labs: Recent Labs 07/13/14 1124 07/12/14 0928 07/09/14 0735 WBC 3.3* 3.5* 6.5 HGB 11.9* 11.0* 11.5* HCT 35.6* 33.8* 35.3* PLATELET 90* 113* 130* Recent Labs 07/13/14 1124 07/12/14 0928 07/09/14 0735 NA 134* 133* 141 K 4.7 4.7 4.1 CL 99 98 104 CO2 23 24 24 BUN 33* 27* 18 CREATININE 1.00 0.98 0.92 Recent Labs 07/12/14 0928 07/02/14 1628 06/04/14 1515 AST 261* 286* 219* ALT 235* 313* 246* ALKPHOS 91 126* 140* BILITOT 0.6 0.4 0.4 BILIDIR 0.2 0.1 0.1 Recent Labs 07/13/14 11207/09/14 0735 CALCIUM 9.6 < > 9.4 PHOS -- -- 3.9 < > = values in this interval not displayed. Recent Labs 07/09/14 0735 PT 15.6* INR 1.2* PTT 33 Recent Labs 07/12/14 0907/09/14 0735 CK 6277* 5535* Vital Signs at Discharge: BP: 149/66 mmHg, Heart Rate: 65, Temp: 36.7 ??C (98.1 ??F), Resp: 18, Height: 174 cm (5' 8.5) (07/08/14 1800) Weight - Scale: 110 kg (242 lb 8.1 oz) (07/09/14 0035) Functional and Cognitive Status: Baseline, normal mentation Physical Exam at Discharge: General: Middle aged male in bed, NAD. MS: Alert, oriented, clear language, no dysarthria CN: PERRL, EOMI, visual cano full, no facial asymmetry Motor: Normal bulk and tone. No fasciculations. No tremors. No myoclonus. Strength generally slightly weaker on the right; 3+/5 on the right and 4-/5 on the left upper extremities, finger abduction andgrip 4+/5 bl, 3+ in the proximal LE muscles on the right, and 4- on the left, dorsiflexion/plantarflexion 4+/5 bl. Reflexes: absent reflexes in the lower extremity, 1+ biceps/triceps. Equivocal toes. Discharge Conditions/Prognosis: Stable Discharge to: Home Updated Allergies/ADRs: Allergies Allergen Reactions ??? Methotrexate Hives, Itching and Rash ??? Morphine Itching ??? Eeuikvv-Ejy-Mfj Reductase Inhibitors Myopathy Immunizations Given this Hospitalization: Immunization History Administered Date(s) Administered ??? Hepatitis B Vaccine, Adult 01/27/2014 ??? Influenza Vaccine, Whole 04/23/2006, 03/10/2009 Discharge Medications: Your Medications New Medications Dose Details enoxaparin 40 mg/0.4 mL Syrg Commonly known as: LOVENOX Inject 0.4 mLs subcutaneously daily. Administer this one day prior, the days of, and the day after your IVIG infusions. 40 mg Quantity: 20 Syringe Refills: 3 mycophenolate 250 mg Cap Commonly known as: CELLCEPT Take 2 capsules by mouth daily. 500 mg Quantity: 60 capsule Refills: 3 Continued medications with new dosing Dose Details insulin lispro Soln Commonly known as: humaLOG Inject 2-4 Units subcutaneously 3 times daily (with meals). What changed: - medication strength - how much to take 2-4 Units Quantity: 10 mL Refills: 12 * insulin glargine Soln Commonly known as: LANTUS Inject 25 Units subcutaneously nightly. What changed: how much to take 25 Units Quantity: 10 mL Refills: 12 * LANTUS Soln Inject 25 Units subcutaneously daily. Generic drug: insulin glargine What changed: Another [...] by mouth daily. 50 mg Refills: 0 ferrous sulfate 325 mg (65 mg iron) Tab Take 1 tablet by mouth 2 times daily. 325 mg Quantity: 60 tablet Refills: 12 indomethacin 25 mg Cap Commonly known as: INDOCIN Take 12.5 mg by mouth 2 times daily (with meals). As needed 12.5 mg Refills: 0 lisinopril-hydrochlorothiazide 20-12.5 mg Tab [...] 2 times daily. 100 mg Refills: 0 Smoking Status at Discharge: Does not smoke Instructions Given to Patient at Discharge: Patient Instructions Instructions on Discharge to Home Why you were hospitalized - IVIG Therapy for Myopathy Call your doctor or seek medical attention if you develop the following - chest pain, shortness of breath, fever, cough, worsening weakness in an arm or leg. Activity level - no restrictions Diet - no change in previous diet Driving - as before hospitalization Shower/Bath - permitted Wound Care - none Changes in Your Medications: New Medications: - CELLCEPT: Take two 250mg tablets per day (for total of 500mg per day) - LOVENOX: Inject 40mg subcutaneously one day prior to, the days of, and the day after your IVIG injections. Medication dose changes: - LANTUS: Dose changed to 25 units in the morning and in the evening - HUMALOG: Dose changed to 2-4 units with meals Follow-up: Future Appointments Date Time Provider Department Center 07/29/2014 2:15 PM Henrry Gleason MD [facility] 07/29/2014 2:30 PM Ruperto Mcclellan MD [facility] 08/10/2014 10:00 AM Ultrasound, Room Five [facility] None 08/10/2014 11:30 AM Anastasia Mccauley MD [facility] Your Inpatient Doctor: Wilfred Nelson MD Your Primary Care Provider: SAMANTHA BAER MD [phone] For questions regarding this document or issues relating to this hospitalization on the Medical Service, please contact your inpatient physician through the [facility] [employer] . Issues after hours and on weekends will be handled by the Hospitalist staff on-call. General Instructions None Future Appointments and Orders Future Appointments Provider Department Dept Phone 07/29/2014 2:15 PM Henrry Gleason MD Neurology [phone] Joint Appt Nurse Visit, Neurology Neurology [phone] 07/29/2014 2:30 PM Ruperto Mcclellan MD Neurology [phone] 08/10/2014 10:00 AM Ultrasound, Room Five [facility] RAD ULTRASOUND [phone] 08/10/2014 11:30 AM Anastasia Mccauley MD Gastroenterology [phone] Future Orders Complete By Expires Basic Metabolic Panel (non-fasting) [LAB15 Custom] 07/26/2014 07/13/2015 Process Instructions: INCLUDES: Calcium, BUN, Creat, GFR, Glucose, Lytes Scheduling Instructions: Comments: Questions: Should this service/procedure be billed to the research sponsor?: CBC (with Diff) [[id number] Custom] 07/26/2014 (Approximate) 07/13/2015 Process Instructions: INCLUDES: WBC, RBC, Hgb, Hct, Platelets, RBC Indices and Differential Scheduling Instructions: Comments: Questions: Should this service/procedure be billed to the research sponsor?: Hepatic Function Panel [LAB20 Custom] 07/26/2014 (Approximate) 07/13/2015 Process Instructions: INCLUDES: T Protein, Alb, AST, ALT, Alk Phos, T Bili, D Bili Scheduling Instructions: Comments: Questions: Should this service/procedure be billed to the research sponsor?: Future Appointments Date Time Provider Department Center 07/29/2014 2:15 PM Henrry Gleason MD [facility] 07/29/2014 2:30 PM Ruperto Mcclellan MD [facility] 08/10/2014 10:00 AM Ultrasound, Room Five [facility] None 08/10/2014 11:30 AM Anastasia Mccauley MD [facility] Primary Care Provider: SAMANTHA BAER MD [address] / [place] [address] Plan of Care - Robles Donovan RN - 07/12/2014 6:18 AM EST Problem: General Plan of Care Goal: Plan of Care Review 07/12/14603 Coping/Psychosocial Response Interventions Plan of Care Reviewed with patient Plan of Care Review Plan of Care Outcome Status ongoing (interventions implemented as appropriate) Progress no change OUTCOME EVALUATION NOTE: OUTCOME SUMMARY: Patient receiving ivig during the day. No issues tonight, protect IV access PLAN MOVING FORWARD: Continue to get IVIG. Monitor strengths. Continue to protect IV access INDIVIDUALIZED FALL PREVENTION: Assistance: 1 stand by assist Supervision: nursing Surveillance: Sun purposeful rounding CPG GOAL OUTCOME EVALUATION: Goal: Individualization and Mutuality 07/08/14 1800 Mutuality/Individual Preferences What anxieties, fears or concerns do you have about your health or care? trying to get this straightened out What questions do you have about your health or care? none What information would help us give you more personalized care? none Goal: Fall Prevention-Safe Patient Handling 07/11/14199907/12/14603 Safety Interventions Safety Precautions/Fall Reduction -- fall reduction program maintained;lighting adjusted for task/safety;low bed;nonskid shoes/slippers when out of bed;room near unit station Musculoskeletal Interventions Activity/Level of Assistance -- up in room Positioning -- independent Muscle Strengthening -- activity/mobility promoted Self-Care Promotion -- grooming assistance provided;independence encouraged while providing assistance Activity and Safety Assistive Device -- Cane Peralta Fall Risk History of Falling 25 -- Secondary Diagnosis 15 -- Ambulatory Aids 15 -- Intravenous Therapy/Heparin/Saline Lock 20 -- Gait/Transferring 10 -- Mental Status 0 -- Score 85 -- OTHER Peralta Fall Risk High (45 and higher) -- Goal: Infection Control 07/12/14 06 Coping/Psychosocial Response Interventions Counseling personal strengths integrated Safety Interventions Isolation Precautions standard precautions maintained Infection Prevention rest/sleep promoted Goal: Discharge Needs Assessment 07/08/14 1800 07/09/14 0639 07/12/14603 Discharge Needs Assessment Concerns to be Addressed -- no discharge needs identified -- Living Environment Transportation Available -- -- family or friend will provide Self-Care Equipment Currently Used at Home cane, straight -- -- Plan of Care - Ellen Hernandez RN - 07/10/2014 8:37 PM EST Problem: General Plan of Care Goal: Plan of Care Review Outcome: Ongoing (Interventions Implemented as Appropriate) 07/10/142032 Coping/Psychosocial Response Interventions Plan of Care Reviewed with patient Plan of Care Review Plan of Care Outcome Status ongoing (interventions implemented as appropriate) Progress progress toward functional goals as expected OUTCOME EVALUATION NOTE: OUTCOME SUMMARY: IVIG administered w/in policy guidelines as ordered with special care/attention to maintaining pt.'sIV line to avoid clotting off. OOB w/ assist and cane. VSS. PLAN MOVING FORWARD: IVIG administration #3 OOB with assist and cane Neuro checks INDIVIDUALIZED FALL PREVENTION: Assistance: OOB w/ supervisory assist w/cane Supervision: Bed alarm, IV site flushing well w/ no s/s clotting or infiltration/induration Surveillance: Hourly rounding; bedside report for safety CPG GOAL OUTCOME EVALUATION: Problem: Fall/Trauma/Injury Risk (Adult, Obstetrics) Goal: Identify Signs and Symptoms and Related Risk Factors Signs and symptoms and related risk factors are identified upon initiation of Human Response Clinical Practice Guideline (CPG) Outcome: Ongoing (Interventions Implemented as Appropriate) Pt free from falls/trauma this shift. Plan of Care - Alyssa Barragan RN - 07/10/2014 5:04 AM EST Problem: General Plan of Care Goal: Plan of Care Review Outcome: Ongoing (Interventions Implemented as Appropriate) 07/09/142052 Coping/Psychosocial Response Interventions Plan of Care Reviewed with patient Plan of Care Review Plan of Care Outcome Status ongoing (interventions implemented as appropriate) Progress progress toward functional goals as expected Goal: Individualization and Mutuality Outcome: Ongoing (Interventions Implemented as Appropriate) 07/08/14 1800 Mutuality/Individual Preferences What anxieties, fears or concerns do you have about your health or care? trying to get this straightened out What questions do you have about your health or care? none What information would help us give you more personalized care? none Goal: Fall Prevention-Safe Patient Handling Outcome: Ongoing (Interventions Implemented as Appropriate) 07/09/14205207/10/14 0400 Peralta Fall Risk History of Falling 25 -- Secondary Diagnosis 15 -- Ambulatory Aids 15 -- Intravenous Therapy/Heparin/Saline Lock 0 -- Gait/Transferring 10 -- Mental Status 0 -- Score 65 -- Activity and Safety Assistive Device Cane -- OTHER Peralta Fall Risk High (45 and higher) -- Safety Interventions Safety Precautions/Fall Reduction bed alarm;low bed;mobility aid;nonskid shoes/slippers when out of bed;room near unit station;supervised activity;environmental modification;fall reduction program maintained;toileting scheduled -- Musculoskeletal Interventions Activity/Level of Assistance up in [place];with cane;with stand by assist -- Positioning -- independent Muscle Strengthening activity/mobility promoted;mobility in bed promoted;personal routines for BADL/IADL promoted;sitting on edge of bed encouraged;up in chair encouraged for meals and activities;strengthening exercises performed -- Self-Care Promotion toileting offered;toileting assistance provided;personal/BADL objects within reach;personal routines for BADL/IADL promoted;instruction in safe use of adaptive equipment provided;bathing assistance provided;assistance provided to decrease frustration -- Goal: Infection Control Outcome: Ongoing (Interventions Implemented as Appropriate) 07/09/142052 Coping/Psychosocial Response Interventions Counseling calming techniques promoted;emotional support provided Safety Interventions Isolation Precautions standard precautions maintained Infection Prevention blood glucose management;bronchial hygiene promoted;environmental surveillance;hydration promoted;nutrition promoted;rest/sleep promoted;promote handwashing Goal: Discharge Needs Assessment Outcome: Ongoing (Interventions Implemented as Appropriate) 07/08/14 1800 07/09/14 0639 Discharge Needs Assessment Concerns to be Addressed -- no discharge needs identified Self-Care Equipment Currently Used at Home cane, straight -- Living Environment Transportation Available car -- OUTCOME EVALUATION NOTE: OUTCOME SUMMARY: Patient had first dose of IVIG this evening, tolerated well. Neuro status remains unchanged. Blood glucose down to 62 this am, up to 94 with orange juice. Patient asymptomatic. Will continue to monitor. PLAN MOVING FORWARD: Continue with IVIG. INDIVIDUALIZED FALL PREVENTION: Assistance: Patient ambulates with stand by assistance and use of cane. Supervision: Patient out of bed with stand by supervision. Surveillance: Fall precautions in place. Purposeful hourly rounding performed. Patient remains free from falls while hospitalized. CPG OUTCOME EVALUATION: Problem: Fall/Trauma/Injury Risk (Adult, Obstetrics) Goal: Identify Signs and Symptoms and Related Risk Factors Signs and symptoms and related risk factors are identified upon initiation of Human Response Clinical Practice Guideline (CPG) Outcome: Ongoing (Interventions Implemented as Appropriate) 07/09/142052 Fall/Trauma/Injury Risk Personal Related Risk Factors (Fall/Trauma/Injury Risk) emotional state;fatigue/slowed reaction time;gait/mobility problems/weakness Environmental Related Risk Factors (Fall/Trauma/Injury Risk) environment unfamiliar Physiological Related Risk Factors (Fall/Trauma/Injury Risk) musculoskeletal alterations Treatment Related Related Risk Factors (Fall/Trauma/Injury Risk) invasive/noninvasive equipment;medications, greater than 4 daily Signs and Symptoms (Fall/Trauma/Injury Risk) presence of risk factors Goal: Absence of Trauma/Injury/Falls Patient will demonstrate the desired outcomes. Outcome: Ongoing (Interventions Implemented as Appropriate) 07/09/14 06 Fall/Trauma/Injury Risk (Adult, Obstetrics) Absence of Trauma/Injury/Falls making progress toward outcome Plan of Care - Ellen Hernandez RN - 07/09/2014 8:58 PM EST Problem: General Plan of Care Goal: Plan of Care Review Outcome: Ongoing (Interventions Implemented as Appropriate) 07/09/142052 Coping/Psychosocial Response Interventions Plan of Care Reviewed with patient Plan of Care Review Plan of Care Outcome Status ongoing (interventions implemented as appropriate) Progress progress toward functional goals as expected OUTCOME EVALUATION NOTE: OUTCOME SUMMARY: IV placed Hematology consult completed Lovenox treatments begun IVIG administration begun OOB w 1 assist and cane UA/C&S sent PLAN MOVING FORWARD: Ambulate IVIG administration Is/Os Pain management INDIVIDUALIZED FALL PREVENTION: Assistance: w/ 1 person and cane Supervision: Blood glucose, Is/Os, IVIG administration protocol, ambulation Surveillance: Hourly rounding and bedside RN reports CPG GOAL OUTCOME EVALUATION: Problem: Fall/Trauma/Injury Risk (Adult, Obstetrics) Goal: Identify Signs and Symptoms and Related Risk Factors Signs and symptoms and related risk factors are identified upon initiation of Human Response Clinical Practice Guideline (CPG) Outcome: Ongoing (Interventions Implemented as Appropriate) 07/09/142052 Fall/Trauma/Injury Risk Personal Related Risk Factors (Fall/Trauma/Injury Risk) emotional state;fatigue/slowed reaction time;gait/mobility problems/weakness Environmental Related Risk Factors (Fall/Trauma/Injury Risk) environment unfamiliar Physiological Related Risk Factors (Fall/Trauma/Injury Risk) musculoskeletal alterations Treatment Related Related Risk Factors (Fall/Trauma/Injury Risk) invasive/noninvasive equipment;medications, greater than 4 daily Signs and Symptoms (Fall/Trauma/Injury Risk) presence of risk factors Consult Note - Richard Pena MD - 07/09/2014 7:48 PM EST DERMATOLOGY - INPATIENT CONSULT NOTE Dermatology Resident: Donato De La Torre MD Attending Sales Planner: Argelia Pena MD Place of Service: Inpatient Unit Reason for Consult: We are seeing Mr. Bucky Acevedo at the request of Caridad Ren MD of the Neurology service for the evaluation of 'Polymyositis, possible biopsy'. I have personally reviewed the available records, interviewed, and examined the patient. History of Present Illness: Mr. Bucky Acevedo is a 54 y.o. 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 He is admitted to Neurology for increasing weakness for the past 2 months. Dermatology was consulted for evaluation of a rash. Pt. States that his rash comes and goes - across his upper abdomen and in the groin. That he develops pustules, that come and resolve. He states this has been occuring for quite some time, and that they are similar to the reaction he had to MTX in 2012, but less of his body is involved. At the currentmoment he states he has some spots on his abdomen that are resolving. He is asymptomatic. On skin ROS - he denies a hx of rough hands, pink raised papules on the hands, rashes limited to the neck, and purple rashes around the eyes. Past Dermatologic History: Per chart and patient - hx of pustular erythema 2/2 MTX Past Medical History: Past Medical History Diagnosis Date ??? Diabetes ??? Hypertension ??? Hyperlipidemia ??? Gout ??? Obesity ??? Kidney stone ??? 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 Shingles 2010 ??? DM II (diabetes mellitus, type II), controlled ??? Cirrhosis Past Surgical History: Past Surgical History Procedure Laterality Date ??? Umbilical hernia repair ??? Ureter stent placement renal stent ??? Tunneled venous port placement Jun 2012 ??? Tunneled venous port placement ??? Bone marrow [place] w/bx through same [place] BONE MARROW ASP PERFORMED W/BX THRU BX INCISION performed by Alem Evangelista MD at [facility] ??? Bone marrow bx, needle/trocar 05/28/2013 ([facility]) BONE MARROW,BIOPSY performed by Alem Evangelista MD at [facility] ??? Muscle biopsy 2008 ??? Lithotripsy ??? Tunneled venous port placement 2011 ??? Colonoscopy, diagnostic 07/21/2013 COLONOSCOPY, DIAGNOSTIC performed by Royer Temple MD at [facility] ??? Endoscopic us exam, esoph 07/21/2013 UPPER EUS- ENDOSCOPIC ULTRASOUND performed by Royer Temple MD at [facility] ??? Upper gi endoscopy, biopsy 07/21/2013 UPPER GASTROINTESTINAL ENDOSCOPY,WITH BIOPSY SINGLE OR MULTIPLE performed by Royer Temple MD at [facility] Current Medications: Infusions: Scheduled medications: ??? insulin glargine 25 Units Subcutaneous Daily ??? mycophenolate 500 mg Oral Daily ??? immune globulin 20 g Intravenous Once Followed by ??? immune globulin 5 g Intravenous Once ??? atenolol 50 mg Oral Daily ??? ferrous sulfate 325 mg Oral BID ??? multivitamin 1 tablet Oral Daily ??? traMADol 100 mg Oral BID ??? enoxaparin 40 mg Subcutaneous Daily ??? docusate sodium 100 mg Oral BID ??? insulin aspart 1-4 Units Subcutaneous TID AC ??? insulin glargine 75 Units Subcutaneous Nightly ??? lisinopril 40 mg Oral Daily And ??? hydrochlorothiazide 25 mg Oral Daily ??? esomeprazole 40 mg Oral Daily PRN medications: ??? ondansetron (ZOFRAN) tablet 4 mg 4 mg Oral Q8H PRN ### ??? magnesium hydroxide (MILK OF MAGNESIA) oral suspension 10 mL 10 mL Oral Daily PRN ### ??? polyethylene glycol (MIRALAX) packet 17 g 17 g Oral Daily PRN ### ??? bisacodyl (DULCOLAX) EC tablet 10 mg 10 mg Oral BID PRN ### ??? bisacodyl (DULCOLAX) suppository 10 mg 10 mg Rectal Daily PRN ### ??? lactulose (CHRONULAC) 20 gram/30 mL oral solution 20-40 g 30-60 mL Oral Daily PRN ### ??? acetaminophen (TYLENOL) tablet 650 mg 650 mg Oral Q6H PRN ### ??? dextrose 50% injection 25-50 mL 12.5-25 g Intravenous Q1H PRN ### Or ??? glucagon (human recombinant) injection 1 mg 1 mg Intramuscular Q1H PRN ### Allergies: Allergies Allergen Reactions ??? Methotrexate Hives, Itching and Rash ??? Morphine Itching ??? Tfviakh-Bxi-Lsh Reductase Inhibitors Myopathy Family History: Family History Problem Relation Age of Onset ??? Colorectal Cancer Mother 59 ??? Diabetes Mother ??? Myocardial Infarction Father first [place] at 36 ??? Coronary Artery Disease Father ??? Stomach Cancer uncle ??? Obesity Mother ??? Hypertension Father ??? Hyperlipidemia Father ??? Type 2 Diabetes Paternal Uncle ??? Obesity Sister ??? Type 2 Diabetes Sister ??? Cirrhosis Paternal Aunt Alcohol Abuse Social History and Habits: History Social History ??? Marital Status: Spouse Name: N/A Number of Children: 4 ??? Years of Education: N/A Occupational History ??? Not on file. Social History Main Topics ??? Smoking status: Never Smoker ??? Smokeless tobacco: Never Used ??? Alcohol Use: No Comment: yearly ??? Drug Use: No ??? Sexual Activity: Not on file Comment: Deferred Other Topics Concern ??? Blood Transfusions No ??? Service No Social History Narrative Lives with of 35 years. Feels safe at home. Disabled since 2009. 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 Review of Systems: See HPI Physical Exam: Vital Signs: Last Set of Vitals and range of vitals over past 24 hours: Last value Range last 24 hrs Temperature Temp: 36.8 ??C (98.2 ??F) Temp: [36.6 ??C (97.9 ??F)-36.8 ??C (98.2 ??F)] Heart Rate Heart Rate: 67 Heart Rate: [59-72] Blood Pressure BP: 139/63 mmHg (pre IVIG #1 VS) BP: (122-154)/(59-73) Respiratory Rate Resp: 18 Resp: [18-20] SpO2 SpO2: 100 % SpO2: [95 %-100 %] Examination: - Constitutional: Patient was alert, well-appearing and in no noticeable distress. - Skin: A abbreviated skin examination was performed. This includes the face, the chest, abdomen, axillae, as well as the arms, hands, palms, fingers. Specific skin findings: 1. On the left upper abdomen in the submammary fold - 3-4 well-demarcated, dull, brown-red macules/patches Laboratory (Last 24 Hours): Recent Results (from the past 24 hour(s)) POCT GLUCOSE Result Value Ref Range POC Glucose 122 60 - 199 mg/dL POCT GLUCOSE Result Value Ref Range POC Glucose 92 60 - 199 mg/dL POCT GLUCOSE Result Value Ref Range POC Glucose 84 60 - 199 mg/dL MAGNESIUM Result Value Ref Range Magnesium 0.64 (*) 0.69 - 1.07 mmol/L PHOSPHORUS Result Value Ref Range Phosphorus 3.9 2.5 - 4.5 mg/dL PROTHROMBIN TIME Result Value Ref Range PT 15.6 (*) 12.5 - 15.5 sec INR 1.2 (*) 0.9 - 1.1 APTT Result Value Ref Range PTT 33 25 - 35 sec CK Result Value Ref Range CK, Total 5535 (*) 0 - 200 unit/L BASIC METABOLIC PANEL (NON-FASTING) Result Value Ref Range Glucose Lvl 84 60 - 199 mg/dL BUN 18 10 - 20 mg/dL Creatinine 0.92 0.80 - 1.50 mg/dL Sodium 141 135 - 145 mmol/L Potassium 4.1 3.5 - 5.0 mmol/L Chloride 104 98 - 107 mmol/L CO2 24 22 - 31 mmol/L Anion Gap 13 5 - 15 mmol/L Calcium 9.4 8.5 - 10.5 mg/dL Estimated GFR >60 >=60 HEMOGRAM Result Value Ref Range WBC 6.5 4.0 - 10.0 x10(3)/mcL RBC 4.05 (*) 4.63 - 6.08 x10(6)/mcL Hemoglobin 11.5 (*) 13.7 - 17.5 gm/dL Hematocrit 35.3 (*) 40.0 - 51.0 % MCV 87.2 79.0 - 92.0 fL MCH 28.4 25.6 - 32.2 pg MCHC 32.6 32.0 - 36.5 gm/dL Platelets 130 (*) 145 - 370 x10(3)/mcL RDWSD 48.0 (*) 35.0 - 46.0 fL RDWCV 15.1 (*) 10.9 - 14.4 % MPV 11.3 9.0 - 12.0 fL DIFFERENTIAL, AUTOMATED Result Value Ref Range Neutrophils % 62.9 Neutr Abs (ANC) 4.09 1.50 - 6.30 x10(3)/mcL Lymphocytes % 23.8 Lymphocytes Abs 1.6 1.0 - 3.6 x10(3)/mcL Monocytes % 8.8 Monocyte Abs 0.6 0.2 - 1.0 x10(3)/mcL Eosinophils % 4.0 Eosinophils Abs 0.3 0.0 - 0.5 x10(3)/mcL Basophils % 0.5 Basophils Abs 0.0 0.0 - 0.2 x10(3)/mcL Immature Gran % 0.00 Tamara Gran Abs 0.00 0.00 - 0.05 x10(3)/mcL POCT GLUCOSE Result Value Ref Range POC Glucose 115 60 - 199 mg/dL URINALYSIS WITH MICROSCOPIC Result Value Ref Range Glucose UA Negative Negative mg/dL Protein UA Negative Negative mg/dL Bilirubin UA Negative Negative mg/dL Urobilinogen UA Normal Normal mg/dL pH UA 6.0 5.0 - 8.0 Blood UA Small (*) Negative mg/dL Ketones UA Negative Negative mg/dL Nitrite UA Negative Negative Leukocytes UA Large (*) Negative mcL Appearance UA Hazy (*) Clear Spec [place] UA 1.014 1.002 - 1.030 Color UA Yellow Yellow RBC UA 4 (*) 0 - 3 /HPF WBC UA 57 (*) 0 - 3 /HPF Bacteria UA Rare (*) None /HPF Squam Epith UA <1 <=4 /HPF POCT GLUCOSE Result Value Ref Range POC Glucose 131 60 - 199 mg/dL POCT GLUCOSE Result Value Ref Range POC Glucose 151 60 - 199 mg/dL Assessment/Plan 54 y.o. 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 Dermatology was consulted for further evaluation. On history, lesion description - pustules - that come and go in a intertriginous distribution is consistent w/ hidradenitis suppurativa (HS). Nevertheless, exam has limited findings outside what could be several resolving lesions on the left upper abdomen. No appreciable scaring in that area or in theaxilla. He denies similar lesion present today in the groin. If this is HS - presentation is consistent w/ mild Poe type I dx, and pt. May likely benefit from application of clindamycin topically. Of note - exam and hx are not consistent w/ dermatomyositis at the current time - Recommendations: - clindamycin 1% solution twice daily to the affected areas - - f/u w/ dermatology as outpatient if condition is not adequately controlled Follow-up: Dermatology will sign-off for now. Please do not hesitate to contact us if you have any questions orconcerns. Impression and Recommendations were attempted to be discussed w/ the remote operations producer resident at [phone] on 07/09/2014. Donato De La Torre MD Resident in Dermatology [facility] Patient seen and evaluated with staff Sales Planner: Nikia Pena MD Section of Dermatology [facility] Level of Resident Supervision: Direct Supervision (The supervising physician is physically present with the resident and patient). I directly supervised Dr. De La Torre in the inpatient consultation of this patient. I saw and evaluated this patient with Dr. De La Torre. She presented the history and physical exam details to me, then we saw the patient together and I confirmed these findings. I agree with details as written. My physical examination confirms Dr. De La Torre' findings. The assessment and plan were formulated in discussion with me at the time of visit and I agree with them as documented. These lesions are nodular, scarred, clustered in skin folds, none inflamed today. The history of pustules and drainage with scar like healing in these areas suggest a diagnosis of hidradentis suppurativa, quiet right now. No need for treatment of this today, and unless it flares, no need to adjust therapy currently. We can follow up as outpatient. Richard Pena MD Staff Physician Initial Assessments - Brianna Fox, OT - 07/09/2014 1:25 PM EST Occupational Therapy Evaluation Patient profile: Bucky Acevedo is a 54 y.o. 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 Pt has poor IV access and was given a port,which accrued a DVT 01/21 and thus he has not been on IVIG therapy since then. Past Medical History Diagnosis Date ??? Diabetes [...] marrow aspiration w/bx through [place] BONE MARROW ASP PERFORMED W/BX THRU BX INCISION performed by Alem Evangelista MD at [facility] ??? Bone marrow bx, needle/trocar [place]/28/2013 [place] BONE MARROW,BIOPSY performed by Alem Evangelista MD at [facility] ??? Muscle biopsy 2008 ??? Lithotripsy ??? Tunneled venous port placement 2011 ??? Colonoscopy, diagnostic 07/21/2013 COLONOSCOPY, DIAGNOSTIC performed by Royer Temple MD at [facility] ??? Endoscopic us exam, esoph 07/21/2013 UPPER EUS- ENDOSCOPIC ULTRASOUND performed by Royer Temple MD at [facility] ??? Upper gi endoscopy, biopsy 07/21/2013 UPPER GASTROINTESTINAL ENDOSCOPY,WITH BIOPSY SINGLE OR MULTIPLE performed by Royer Temple MD at [facility] Social History: Patient lives with his of 35 years, who cars for someone at home, so she can be available as needed. She has been able to help him up by bringing something over to help him get up Home Setup: 4 shallow steps to enter without a rail from garage to the basement level, flight to main living level, then can stay on that level, has a walk-in shower. 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 Pt reports he tries to do as much as he can without assistance. Pt ambulates with no device in the home and shorter distances but uses a cane for longer distances. Pt reports 2 falls in the last 6 months, one in which he slipped on ice and the other more recently with this decline. Code Status: Full Code Activity Orders:up with assistance Precautions: at risk to fall, proximal weakness Subjective: I try to be as independent as I can. I want to use the strength I have. Objective: Seen today for OT evaluation. Cognitive Status/Behavior: Alert, oriented x 4 Following commands appropriately Communication: intact Vision & Perception: Wears glasses for small print Denies any vision changes Able to read article without difficulty Denies visual fatigue Range of motion, strength, coordination: Hand dominance: right UE status: shoulder flexion: 3-/5, shoulder ext: 3/5, elbow flex: 3/5 R, 3+/5 L, elbow ext: 3+/5 R, 4/5 L, wrist flex/ext: 5/5, finger flex/ext: 5/5, poor muscular endurance, give-way weakness, LE status: proximal > distal weakness, see PT note Sensation: denies numbness/tingling at this time Activities of Daily Living: Self-feeding: indep (anticipate needs to be upright with table in front of him) Hygiene grooming: ?? Not observed, denies deficits, anticipate upright seated with table in front of him Upper and lower body dressing and bathing: ?? Pt reports that he stands in the shower at home, declines to use a shower seat (though recommend seated showers here) ?? LB dressing: able to don/doff socks seated with extra time, increased effort; has a sock aid at home, but does not use ?? UB dressing: able to don robe with min A, difficulty, overhead pullover shirts are challenging but he doesn't really wear button up shirts Toileting: not observed, anticipate CGA to min A Simple beverage preparation: pt obtained a cup of diet soda from refrigerator, able to reach bottom shelf with unilateral UE support, awkward shoulder flex when pouring (compensatory muscles used); hadpt hold cup and carry back to his room with no spilling but +fatigue Functional Mobility: Supine to sit: rolled to R side, min A sidelying to sit, increased effort Sit to stand: CGA with cane Ambulation: pt ambulated 150' with cane and CGA Stand to sit: CGA Balance: good sitting, standing with CGA and cane IADL???s: Assistance available to patient, though pt continues to participate; will further assess prior to d/c Endurance: Information taken from last recorded vitals in flowsheet. Last value Range last 8 hrs Heart Rate Heart Rate: 72 Heart Rate: [67-72] Blood Pressure BP: 141/69 mmHg BP: (122-141)/(60-69) SpO2 SpO2: 96 % on RA SpO2: [96 %] Fair tolerance to session Pain: pt denied pain Skin: Not assessed Informed Consent: The patient agrees to and understands the OT treatment plan and goals. Education: Patient has been educated on Role of occupational therapy/rehabilitation, Transfers, Assistive device/technique, ADL, Exercise, Positioning, Safety, Precautions/Protocol, Brace Management, Functional Mobility, Activity pacing/Energy conservation, Balance and Recommendations and verbalizes understanding. Patient status, treatment, and mobility recommendations discussed with nursing. Assessment: Pt presents with progressive weakness, impaired dynamic standing balance and increased difficulty managing ADL's. Pt is very motivated to maintain his independence and may not be likely to alter how he approaches a task. At this time, recommend CGA for standing tasks/mobility. Will provide further education re: energy conservation and adaptive strategies to maximize his functional capacity. Recommendations: Equipment needs at discharge: TBD Discharge Recommendations: recommend home PT and OT Other Recommendations: none Goals: To be achieved [...] Patient will demonstrate understanding of energy conservation techniques Plan: Pt to be seen 3-5 times per week for therapy including Role of occupational therapy/rehabilitation, Transfers, Assistive device/technique, ADL, Exercise, Positioning, Safety, Precautions/Protocol, Functional Mobility, Activity pacing/Energy conservation, Home Management, Balance, Recommendations, Family training and Discharge planning Eval Date: 07/09/2014 Total time spent with patient: 40 minutes for initial evaluation Total timed interventions: 0 minutes Pager: [phone] Brianna Fox OT 07/09/2014 Occupational Therapy Rehabilitation Department Consult Note - Randi Ames MD - 07/09/2014 10:32 AM EST INITIAL HEME/ ONC CONSULT DATE OF CONSULT 07/09/2014 PATIENT Bucky Acevedo 1960 REFERRING PHYSICIAN Caridad Ren REASON FOR CONSULTATION Heterozygous MHTFR, management of anticoagulation need given ongoing HISTORY PRESENT ILLNESS This patient is a 54 y.o. 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 We were asked to see the patient for management of anticoagulation inthe setting of MTHFR mutation. Mr. Acevedo explains that the overall course of his myositis has been that since it was first diagnosed in 2009 with myositis and receives IVIG, his symptoms remit and his strength returns. The time between relapses of symptoms is variable but has in the past responded to IVIG. Over the last two months he has become increasingly week again, and was admitted to the hospital to pursue subcutaneous IVIGas he has had clotting issues around his port and peripheral IVs. The patient explains that the first VTE he had was in his right arm and occurred around an IV insertion site; he states that this was ~08/2013. The clot upon asking him did not travel thoughout his arm and was superficial (however, no accompany documentation to verify this). He states he underwent 3 months of anticoagulation for this episode managed by his PCP. In 11/2013 he developed a subclavian vein thrombosis associated with his port, the port was removed and he underwent 6 months of anticoagulation ending in 05/2014. THROMBOSIS RISK FACTORS Risk Factor Comment Obesity (BMI >30 kg/m2) V/A Y Diabetes V/A Y Current smoker V/A N Estrogen or estrogen/progestin V/A N V/A N Inflammatory disease V/A Y Recent surgery (<3 months) V N Recent hospitalization (<3 mo) V Y Recent travel (<3 mo) V N Period of immobility V N Documented thrombophilia V N Accident/Trauma V/A N Cancer or treatment for cancer V/A N Blood transfusion V/A N Central venous catheter V Y Family history (1st degree) V/A N States his mother might have, but he is unsure and what he describes is bilateral amputation from bad diabetes as opposed to clotting Varicose veins/venous insuff. V N Hypertension A Y Hyperlipidemia A Vascular disease A N MEDICATIONS AND ALLERGIES No current facility-administered medications on file prior to encounter. Current Outpatient Prescriptions on File Prior to Encounter Medication Sig Dispense Refill ??? ferrous sulfate 325 mg (65 mg iron) Tablet Take 1 tablet by mouth 2 times daily. 60 tablet 12 ??? omeprazole (PRILOSEC) 40 mg capsule Take 1 capsule by mouth daily. 90 capsule 3 ??? indomethacin (INDOCIN) 25 mg capsule Take 12.5 mg by mouth 2 times daily (with meals). As needed ??? ondansetron (ZOFRAN) 4 mg tablet Take 1 tablet by mouth as needed. 20 tablet 3 ??? INSULIN LISPRO (HUMALOG SUBQ) Inject 12 Units subcutaneously 3 times daily (with meals). ??? insulin glargine (LANTUS) 100 unit/mL vial injection Inject 75 Units subcutaneously nightly. ??? lisinopril-hydrochlorothiazide (PRINZIDE;ZESTORETIC) 20-12.5 mg per tablet Take 2 tablets by mouth daily. ??? atenolol (TENORMIN) 100 mg tablet Take 50 mg by mouth daily. ??? traMADol (ULTRAM) 50 mg tablet Take 100 mg by mouth 2 times daily. PAST MEDICAL HISTORY Past Medical History Diagnosis Date ??? Diabetes ??? Hypertension ??? Hyperlipidemia ??? Gout ??? Obesity ??? Kidney stone ??? 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 Shingles 2009 ??? DM II (diabetes mellitus, type II), controlled ??? Cirrhosis PAST SURGICAL HISTORY Past Surgical History Procedure Laterality Date ??? Umbilical hernia repair ??? Ureter stent placement renal stent ??? Tunneled venous port placement Jun 2012 ??? Tunneled venous port placement ??? Bone marrow aspiration w/bx through same incision/[place] BONE MARROW ASP PERFORMED W/BX THRU BX INCISION performed by Alem Evangelista MD at [facility] ??? Bone marrow bx, needle/trocar 05/28/2013 ([facility]) BONE MARROW,BIOPSY performed by Alem Evangelista MD at [facility] ??? Muscle biopsy 2008 ??? Lithotripsy ??? Tunneled venous port placement 2011 ??? Colonoscopy, diagnostic 07/21/2013 COLONOSCOPY, DIAGNOSTIC performed by Royer Temple MD at [facility] ??? Endoscopic us exam, esoph 07/21/2013 UPPER EUS- ENDOSCOPIC ULTRASOUND performed by Royer Temple MD at [facility] ??? Upper gi endoscopy, biopsy 07/21/2013 UPPER GASTROINTESTINAL ENDOSCOPY,WITH BIOPSY SINGLE OR MULTIPLE performed by Royer Temple MD at [facility] FAMILY HISTORY Family History Problem Relation Age of Onset ??? Colorectal Cancer Mother 59 ??? Diabetes Mother ??? Myocardial Infarction Father first [place] at 36 ??? Coronary Artery Disease Father ??? Stomach Cancer uncle ??? Obesity Mother ??? Hypertension Father ??? Hyperlipidemia Father ??? Type 2 Diabetes Paternal Uncle ??? Obesity Sister ??? Type 2 Diabetes Sister ??? Cirrhosis Paternal Aunt Alcohol Abuse SOCIAL HISTORY History Social History ??? Marital Status: Spouse Name: N/A Number of Children: 4 ??? Years of Education: N/A Social History Main Topics ??? Smoking status: Never Smoker ??? Smokeless tobacco: Never Used ??? Alcohol Use: No Comment: yearly ??? Drug Use: No ??? Sexual Activity: Not on file Comment: Deferred Other Topics Concern ??? Blood Transfusions No ??? Service No Social History Narrative Lives with of 35 years. Feels safe at home. Disabled since 2009. 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 COMPREHENSIVE REVIEW OF SYSTEMS Besides what is mentioned in the HPI, all other systems are negative PHYSICAL EXAMINATION Filed Vitals: 07/09/14 0934 BP: 141/69 Pulse: 72 Temp: Resp: NAD, pleasant, Abd is soft, NT/ ND, did not appreciate organomegally Lymphadenopathy non palpable Joints are not swollen or inflamed There are no gross neurologic deficits Affect and mood are appropriate for the situation There are no appreciable rashes LABORATORY EVALUATION Recent Results (from the past 24 hour(s)) POCT GLUCOSE Result Value Ref Range POC Glucose 122 60 - 199 mg/dL POCT GLUCOSE Result Value Ref Range POC Glucose 92 60 - 199 mg/dL POCT GLUCOSE Result Value Ref Range POC Glucose 84 60 - 199 mg/dL MAGNESIUM Result Value Ref Range Magnesium 0.64 (*) 0.69 - 1.07 mmol/L PHOSPHORUS Result Value Ref Range Phosphorus 3.9 2.5 - 4.5 mg/dL PROTHROMBIN TIME Result Value Ref Range PT 15.6 (*) 12.5 - 15.5 sec INR 1.2 (*) 0.9 - 1.1 APTT Result Value Ref Range PTT 33 25 - 35 sec CK Result Value Ref Range CK, Total 5535 (*) 0 - 200 unit/L BASIC METABOLIC PANEL (NON-FASTING) Result Value Ref Range Glucose Lvl 84 60 - 199 mg/dL BUN 18 10 - 20 mg/dL Creatinine 0.92 0.80 - 1.50 mg/dL Sodium 141 135 - 145 mmol/L Potassium 4.1 3.5 - 5.0 mmol/L Chloride 104 98 - 107 mmol/L CO2 24 22 - 31 mmol/L Anion Gap 13 5 - 15 mmol/L Calcium 9.4 8.5 - 10.5 mg/dL Estimated GFR >60 >=60 HEMOGRAM Result Value Ref Range WBC 6.5 4.0 - 10.0 x10(3)/mcL RBC 4.05 (*) 4.63 - 6.08 x10(6)/mcL Hemoglobin 11.5 (*) 13.7 - 17.5 gm/dL Hematocrit 35.3 (*) 40.0 - 51.0 % MCV 87.2 79.0 - 92.0 fL MCH 28.4 25.6 - 32.2 pg MCHC 32.6 32.0 - 36.5 gm/dL Platelets 130 (*) 145 - 370 x10(3)/mcL RDWSD 48.0 (*) 35.0 - 46.0 fL RDWCV 15.1 (*) 10.9 - 14.4 % MPV 11.3 9.0 - 12.0 fL DIFFERENTIAL, AUTOMATED Result Value Ref Range Neutrophils % 62.9 Neutr Abs (ANC) 4.09 1.50 - 6.30 x10(3)/mcL Lymphocytes % 23.8 Lymphocytes Abs 1.6 1.0 - 3.6 x10(3)/mcL Monocytes % 8.8 Monocyte Abs 0.6 0.2 - 1.0 x10(3)/mcL Eosinophils % 4.0 Eosinophils Abs 0.3 0.0 - 0.5 x10(3)/mcL Basophils % 0.5 Basophils Abs 0.0 0.0 - 0.2 x10(3)/mcL Immature Gran % 0.00 Tamara Gran Abs 0.00 0.00 - 0.05 x10(3)/mcL RADIOGRAPHIC EVALUATION No new imaging to review PATHOLOGY EVALUATION None ASSESSMENT: Bucky Acevedo is a 54 y.o. 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 The patient first event - right arm thrombosis - per patient report did not extend throughout his arm, and sounds superficial (ie. Not a significant VTE). The patient's biggest risk factor for clots appears to be presence of a peripheral or central line per his history. He does have some likely nonreversible risk factors for VTE: inflammatory disease, obesity, andrecent hospitalization (with the frequency of his flairs this will likely occur in the future). The positivity of his MTHFR mutation is not associated with increased likelihood of VTE (Kang et al). The decision of anticoagulation should be guided by whether he is going to have a line in place - if he is then it does may sense to have him anticoagulated for the duration of that line placement. RECOMMENDATIONS: Hx of provoked VTE -hold on alf anticoagulation provided no line placement -however if patient needs a line placement for therapy, or use a of peripheral IV when getting IVIG then would anticoagulate at that time -if going to give through a PIV, then just continue with enoxparin 40mg daily until line removed or d/c from hospital -workup for secondary malignancies: MRI abdomen was neg HCC (repeat UT in 6 mo), BM biopsy on neg for evidence of heme malignancy, colo no evidence of malignancy -MTHFR mutation no association to VTE risk -if possible obtain notes from primary care doc to see event of first right arm clot (per pt sounds superficial) Reference: Pablito Kapadia., Marielle Quiles., Axel Fish., & Bert Argueta. (2007). [facility] 677C->T polymorphism and venous thrombosis: results from the MARIA G study. Archives ofinternal medicine, [phone]. Ever Farmer MD PG-2 seen in tandem with heme/onc fellow Pager [phone]*+*+*+*+*+*+*+*+*+*+*+*+*+*+*+*+*+*+*+*+*+*+*+*+*+*+*+*+*+*+*+*+*+*+*+*+*+* Hematology/Coagulation Consult Staff I have independently interviewed and examined this patient and have personally reviewed the relevantclinical, laboratory and radiological data with Dr. Ever Farmer, Hematology/Oncology Resident. Please refer to the comprehensive consultation note above, with which I concur, for complete details of our encounter with this patient. I have reviewed and endorse the recommendations as outlined and have made any additions/corrections below. In brief, Bucky Acevedo has had what he describes and we interpret as an episode of superficial thrombophlebitis associated with an IV insertion for an IVIG infusion and a more extensive venous thrombosis in the upper extremity and neck associated with a mediport. He was anticoagulated for both events but is not on penitentiary anticoagulation at the current time. The mediport has been removed, but he has an ongoing requirement for periodic IVIG infusions. He has undergone thrombophilia testing, the results of which are all negative or irrelevant, as thrombophilia testing is not helpful for making management decisions in this patient's situation. He was also tested for MTHFR gene polymorphisms which are NOT associated with thrombophilia or VTE but for which we are consulted when his test disclosed the common C677T polymorphism. His risk factors for VTEinclude inflammatory disease, obesity, IV catheter, IVIG. As above, we see no contraindication to the use of a peripheral IV catheter for IVIG infusions and would recommend thromboprophylaxis with enoxaparin, 40 mg once daily while receiving IVIG through a catheter. Should he develop a superficial thrombophlebitis at the site of the IV despite this intervention , the treatment is with antiinflammatory agents and local measures; this does not require full anticoagulation. He has no contraindication to insertion of a mediport in the future, but we would recommend anticoagulation with warfarin (target INR 2.5, range 2.0 to 3.0) for the duration of time that the port remains in place in order to prevent recurrent VTE. We recommend no further thrombophilia testing and there is no indication for family testing for MTHFR polymorphisms. The C677T polymorphism that Bucky has is found in ~40% of the population and is notpathologic. Thanks for asking us to consult on this delightful patient's case. Please don't hesitate to contact us if we may provide additional information or assistance. Randi Ames MD Marketing Traffic Manager, [facility] Initial Assessments - Sharri River, PT - 07/09/2014 8:33 AM EST Physical Therapy Evaluation Patient profile: Bucky Acevedo is a 54 y.o. male admitted on 07/08/2014 by Caridad Land MD with proximal weakness consistent with inflammatory myopathy. PT Consult Received 07/08 for initial evaluation. Patient with the following active problems: Patient Active Problem List Diagnosis Code ??? Myopathy 359.9 ??? Nausea and vomiting 787.01 ??? Diabetes mellitus type II 250.00 ??? Hepatosplenomegaly 571.8 ??? Durand's esophagus 530.85 ??? Nonalcoholic steatohepatitis (HORTON) 571.8 ??? Anemia 285.9 PMH: Past Medical History Diagnosis Date ??? [...] INCISION performed by Alem Evangelista MD at [facility] ??? Bone marrow bx, needle/trocar 05/28/2013 ([facility]) BONE MARROW,BIOPSY performed by Alem Evangelista MD at [facility] ??? Muscle biopsy 2008 ??? Lithotripsy ??? Tunneled venous port placement 2011 ??? Colonoscopy, diagnostic 07/21/2013 COLONOSCOPY, DIAGNOSTIC performed by Royer Temple MD at [facility] ??? Endoscopic us exam, esoph 07/21/2013 UPPER EUS- ENDOSCOPIC ULTRASOUND performed by Royer Temple MD at [facility] ??? Upper gi endoscopy, biopsy 07/21/2013 UPPER GASTROINTESTINAL ENDOSCOPY,WITH BIOPSY SINGLE OR MULTIPLE performed by Royer Temple MD at [facility] Social History: Patient lives with his Bethanie in a two story home in [place], [place]. Pt states thatentry level is basement with full flight of stairs and 2 rails to get to main living level. Bathroomincludes raised toilet seat, stall shower, and pt states that he has a wall suction grab bar (not yet installed) and shower chair available but does not use them. Pt's is available to provide 24/7assist if needed. Stairs: 3 without a rail to enter - of note pt reports that stairs are low, 3 inch rise Baseline Mobility: Disabled since 2009; ambulates primarily without use of assistive device but willoccasionally use SC for longer distances out of home or when feeling very weak; drives when feeling well; fluctuating functional endurance Equipment at home: SC, raised toilet seat, palliative care physician, sock aid, grab bar, Precautions/Special Considerations: Full code; At risk to fall with h/o falls Activity Orders: Up with assistance Staff communication/Mobility Recommendations: Pt. to utilize straight cane and contact guard for ambulation with nursing. Bed Mobility: minimal assist from flat bed Transfers: contact guard assist using SC Ambulation: contact guard assist using SC Subjective: ???Oh I know I know I've definitely heard that before, I just don't like to limit myselffrom doing things.?? - Following discussion regarding safety and energy conservation Objective: Pt seen for evaluation today in coordination with OT services. Pain: 0/10 on Numeric Pain Rating Scale Vital Signs: Last value Range last 8 hrs Temperature Temp: 36.6 ??C (97.9 ??F) Temp: [36.6 ??C (97.9 ??F)-36.8 ??C (98.2 ??F)] Heart Rate Heart Rate: 67 Heart Rate: [62-67] Blood Pressure BP: 122/60 mmHg BP: (122-134)/(60-61) Respiratory Rate Resp: 18 Resp: [18] SpO2 SpO2: 96 % SpO2: [95 %-96 %] Mental Status: alert, oriented to person, place, and time Musculoskeletal: LE AROM: WFL STRENGTH: RIGHT LEFT HIP Flexion 3+/5 3+/5 Abduction 5/5 5/5 Adduction 3+/5 3+/5 Internal rotation 3/5 3/5 External rotation 3+/5 3+/5 KNEE Flexion 4/5 4/5 Extension 4+/5 4+/5 ANKLE Dorsiflexion 5/5 5/5 Plantarflexion 5/5 5/5 SENSATION: WFL Bed Mobility: Supine to Sit: minimal assist with increased time without bed rail and with HOB flat Transfers: Sit to Stand: contact guard using SC Stand to Sit: contact guard using SC Bed to Chair: contact guard using SC Gait: Distance: 300 feet Device used: straight cane Level of assist: contact guard Gait pattern: excessive lateral trunk lean to side that holds SC (pt switches sides for energy conservation) Balance: Sitting: WFL Standing: Impaired Education: patient have been educated on Bed mobility, Exercise, Safety , Gait , Activity pacing/Energy conservation, Home program, Balance and Discharge planning and verbalizes and demonstrates understanding. Patient status, treatment, and mobility recommendations discussed with nursing. Assessment: Bucky Acevedo admitted with proximal weakness consistent with inflammatory myopathy. At this time, pt limited by proximal muscle weakness and reduced activity tolerance. Pt with good understanding of some energy conservation strategies, however notes that he tends to use full energy reserve VS utilize strategies 2/2 strong preference to not be self-limiting. Long discussion with pt regarding energy conservation strategies and when to use them appropriately, with clear recommendation to ensure that safety should not be compromised. Pt left resting comfortably in bedside chair with Masimo secured and call howe in reach. Pt encouraged to ambulate frequently with staff, getting into thebathroom for toileting and walking out in the [place] as able. The pt would benefit from skilled therapy services to maximize functional independence while in the hospital and to address limitations as noted above. Goals: To be achieved by 07/16/14: 1. Pt. to demonstrate knowledge of energy [...] 5. Pt. to ambulate >150 feet with a no assistive device, and independent with increased time. 6. Pt. to ambulate up/down 14 step/stairs with supervision, using one railing. 7. Family or caregiver to demonstrate understanding of therapeutic interventions to support the careof the patient. Plan: Pt to be seen 3-4 times per week for therapy including Bed mobility, Transfers, Stairs, Exercise, Safety , Activity pacing/Energy conservation, Home program and Discharge planning. Patient agrees with plan as stated above. Discharge Recommendations: Patient would benefit from continued therapeutic interventions 2-3 times a week as provided in a home environment to progress toward functional goals. No other consults recommended at this time Equipment needs: TBD, likely no DME needs . Total time spent with patient: 45 minutes for evaluation in coordination with OT evaluation Total timed interventions: 0 minutes Sharri River PT, DPT 07/09/2014 Pager: [phone] Physical Therapy Inpatient Rehabilitation Department Plan of Care - Alyssa Barragan RN - 07/09/2014 6:45 AM EST Problem: General Plan of Care Goal: Plan of Care Review Outcome: Ongoing (Interventions Implemented as Appropriate) 07/09/14 0639 Coping/Psychosocial Response Interventions Plan of Care Reviewed with patient Plan of Care Review Plan of Care Outcome Status ongoing (interventions implemented as appropriate) Progress no change OUTCOME EVALUATION NOTE: OUTCOME SUMMARY: Patient a direct admit from home. Admitted for necrotizing myopathy, was getting IVIG, but loss of port and hx of difficult IV access so plan is to admit for subq therapy PLAN MOVING FORWARD: Plan to begin subq IG therapy. INDIVIDUALIZED FALL PREVENTION: Assistance: Patient out of bed with stand by assistance and use of cane. Supervision: Patient up with stand by supervision. Surveillance: Fall precaution in place. Bed alarm on. Purposeful hourly rounding performed. Patient remains free from falls while hospitalized. CPG OUTCOME EVALUATION: Goal: Individualization and Mutuality Outcome: Ongoing (Interventions Implemented as Appropriate) 07/08/14 1800 Mutuality/Individual Preferences What anxieties, fears or concerns do you have about your health or care? trying to get this straightened out What questions do you have about your health or care? none What information would help us give you more personalized care? none Goal: Fall Prevention-Safe Patient Handling Outcome: Ongoing (Interventions Implemented as Appropriate) 07/08/14 2114 07/09/14 0100 07/09/14 0600 Peralta Fall Risk History of Falling 25 -- -- Secondary Diagnosis 0 -- -- Ambulatory Aids 15 -- -- Intravenous Therapy/Heparin/Saline Lock 0 -- -- Gait/Transferring 10 -- -- Mental Status 0 -- -- Score 50 -- -- Activity and Safety Assistive Device Cane -- -- OTHER Peralta Fall Risk High (45 and higher) -- -- Safety Interventions Safety Precautions/Fall Reduction -- bed alarm -- Musculoskeletal Interventions Activity/Level of Assistance up in room;with cane;with stand by assist -- -- Positioning -- -- independent Goal: Infection Control Outcome: Ongoing (Interventions Implemented as Appropriate) 07/08/142113 Coping/Psychosocial Response Interventions Counseling calming techniques promoted;emotional support provided;reassurance provided;problem solving facilitated;relaxation techniques promoted;understanding of situation facilitated;verbalization offeelings encouraged Safety Interventions Isolation Precautions standard precautions maintained Infection Prevention bronchial hygiene promoted;environmental surveillance;hydration promoted;nutrition promoted;promote handwashing;rest/sleep promoted;blood glucose management Goal: Discharge Needs Assessment Outcome: Ongoing (Interventions Implemented as Appropriate) 07/08/14 1800 07/09/14638 Discharge Needs Assessment Concerns to be Addressed -- no discharge needs identified Self-Care Equipment Currently Used at Home cane, straight -- Living Environment Transportation Available car -- Problem: Fall/Trauma/Injury Risk (Adult, Obstetrics) Goal: Identify Signs and Symptoms and Related Risk Factors Signs and symptoms and related risk factors are identified upon initiation of Human Response Clinical Practice Guideline (CPG) Outcome: Ongoing (Interventions Implemented as Appropriate) 07/09/14638 Fall/Trauma/Injury Risk Personal Related Risk Factors (Fall/Trauma/Injury Risk) fatigue/slowed reaction time;gait/mobility problems/weakness;history of falls Environmental Related Risk Factors (Fall/Trauma/Injury Risk) environment unfamiliar Physiological Related Risk Factors (Fall/Trauma/Injury Risk) neuromuscular alteration Signs and Symptoms (Fall/Trauma/Injury Risk) presence of risk factors Goal: Absence of Trauma/Injury/Falls Patient will demonstrate the desired outcomes. Outcome: Ongoing (Interventions Implemented as Appropriate) 07/09/14638 Fall/Trauma/Injury Risk (Adult, Obstetrics) Absence of Trauma/Injury/Falls making progress toward outcome documented in this encounter Plan of Treatment Upcoming Encounters Date Type Specialty Care Team Description 06/19/2022 Office Visit Rheumatology Richi Blackmon MD [facility] [place] [place] [address] (Wo rk) Scheduled Procedures Name Priority Associated Diagnoses Date/Time EGD, UPPER GI ENDOSCOPY Family hx of colon cance r COLONOSCOPY, DIAGNOSTIC Family hx of colon cance r documented as of this encounter Procedures Procedure Name Priority Date/Time Associated Comments Diagnosis POCT GLUCOSE Routine 07/13/2014 12:05 Results for this PM EST procedure are i n the results section. HEMOGRAM Routine 07/13/2014 11:24 Results for this AM EST procedure are i n the results section. DIFFERENTIAL, Routine 07/13/2014 11:24 Results fo r this AUTOMATED AM EST procedure are i n the results section. CBC (WITH DIFF) Routine 07/13/2014 11:24 AM EST BASIC METABOLIC PANEL Routine 07/13/2014 11:24 Re sults for this (NON-FASTING) AM EST procedure are in the results section. POCT GLUCOSE Routine 07/13/2014 7:46 AM Results f or this EST procedure are i n the results section. POCT GLUCOSE Routine 07/13/2014 3:58 AM Results f or this EST procedure are i n the results section. POCT GLUCOSE Routine 07/12/2014 9:04 PM Results f or this EST procedure are i n the results section. POCT GLUCOSE Routine 07/12/2014 3:44 PM Results f or this EST procedure are i n the results section. POCT GLUCOSE Routine 07/12/2014 11:36 Results for this AM EST procedure are i n the results section. BMP W/FASTING GLUCOSE Routine 07/12/2014 9:28 AM Results for this EST procedure are i n the results section. HEMOGRAM Routine 07/12/2014 9:28 AM Results f or this EST procedure are i n the results section. DIFFERENTIAL, Routine 07/12/2014 9:28 AM Results for this AUTOMATED EST procedure are i n the results section. CBC (WITH DIFF) Routine 07/12/2014 9:28 AM EST CK Routine 07/12/2014 9:28 AM Results f or this EST procedure are i n the results section. HEPATIC FUNCTION Routine 07/12/2014 9:28 AM Resul ts for this PANEL EST procedure are i n the results section. POCT GLUCOSE Routine 07/12/2014 7:16 AM Results f or this EST procedure are i n the results section. POCT GLUCOSE Routine 07/12/2014 3:50 AM Results f or this EST procedure are i n the results section. POCT GLUCOSE Routine 07/11/2014 11:45 Results for this PM EST procedure are i n the results section. POCT GLUCOSE Routine 07/11/2014 7:39 PM Results f or this EST procedure are i n the results section. POCT GLUCOSE Routine 07/11/2014 4:17 PM Results f or this EST procedure are i n the results section. POCT GLUCOSE Routine 07/11/2014 12:04 Results for this PM EST procedure are i n the results section. POCT GLUCOSE Routine 07/11/2014 6:50 AM Results f or this EST procedure are i n the results section. POCT GLUCOSE Routine 07/11/2014 4:14 AM Results f or this EST procedure are i n the results section. POCT GLUCOSE Routine 07/10/2014 11:42 Results for this PM EST procedure are i n the results section. POCT GLUCOSE Routine 07/10/2014 7:56 PM Results f or this EST procedure are i n the results section. POCT GLUCOSE Routine 07/10/2014 4:10 PM Results f or this EST procedure are i n the results section. POCT GLUCOSE Routine 07/10/2014 12:05 Results for this PM EST procedure are i n the results section. POCT GLUCOSE Routine 07/10/2014 7:14 AM Results f or this EST procedure are i n the results section. POCT GLUCOSE Routine 07/10/2014 6:41 AM Results f or this EST procedure are i n the results section. POCT GLUCOSE Routine 07/10/2014 4:35 AM Results f or this EST procedure are i n the results section. POCT GLUCOSE Routine 07/10/2014 3:53 AM Results f or this EST procedure are i n the results section. POCT GLUCOSE Routine 07/09/2014 11:44 Results for this PM EST procedure are i n the results section. POCT GLUCOSE Routine 07/09/2014 7:46 PM Results f or this EST procedure are i n the results section. POCT GLUCOSE Routine 07/09/2014 4:17 PM Results f or this EST procedure are i n the results section. URINALYSIS WITH STAT 07/09/2014 2:13 PM Result s for this REFLEX CULTURE EST procedure are in the results section. URINE CULTURE STAT 07/09/2014 2:12 PM Results for this EST procedure are i n the results section. POCT GLUCOSE Routine 07/09/2014 11:35 Results for this AM EST procedure are i n the results section. HEMOGRAM STAT 07/09/2014 7:35 AM Results f or this EST procedure are i n the results section. DIFFERENTIAL, STAT 07/09/2014 7:35 AM Results for this AUTOMATED EST procedure are i n the results section. APTT STAT 07/09/2014 7:35 AM Results f or this EST procedure are i n the results section. PROTHROMBIN TIME STAT 07/09/2014 7:35 AM Resul ts for this EST procedure are i n the results section. CBC (WITH DIFF) STAT 07/09/2014 7:35 AM EST PHOSPHORUS STAT 07/09/2014 7:35 AM Results f or this EST procedure are i n the results section. MAGNESIUM STAT 07/09/2014 7:35 AM Results f or this EST procedure are i n the results section. CK STAT 07/09/2014 7:35 AM Results f or this EST procedure are i n the results section. BASIC METABOLIC PANEL STAT 07/09/2014 7:35 AM Results for this (NON-FASTING) EST procedure are in the results section. POCT GLUCOSE Routine 07/09/2014 7:17 AM Results f or this EST procedure are i n the results section. POCT GLUCOSE Routine 07/09/2014 3:57 AM Results f or this EST procedure are i n the results section. POCT GLUCOSE Routine 07/08/2014 11:53 Results for this PM EST procedure are i n the results section. documented in this encounter Results (ABNORMAL) Hepatic Function Panel (07/29/2014 3:40 PM [...] Nelson MD CHEMISTRY ORDERABLES Performing Organization Address City/[facility]/ZIP Code Phon e Number [address] CERNER MILLENNIUM POCT Glucose (07/13/2014 12:05 PM EST) athologist Signature POC Glucose 90 60 - 199 CERNER mg/dL MILLENNIUM Comment: Supplemental ranges: <140 mg/dL before meals <180 mg/dL all other times of the day Specimen Anatomical Collection Method Collection Time Receive d Time (Source) Location / / Volume Laterality Blood specimen 07/13/2014 12:05 5 (specimen) PM EST 12:05 PM EST Caridad Ren MD POINT OF CARE TEST ORDERABLE S Performing Organization Address City/[facility]/ZIP Code Phon e Number [address] CERNER MILLENNIUM (ABNORMAL) Differential, Automated (07/13/2014 11:24 AM EST) [facility] gist Method Time Signature Neutrophils % 54.5 % CERNER MILLENNIUM Neutr Abs (ANC) 1.82 1.50 - CERNER 6.30 MILLENNIUM x10(3)/mcL Lymphocytes % 27.5 % CERNER MILLENNIUM Lymphocytes Abs 0.9 (L) 1.0 - 3.6 CERNER x10(3)/mcL MILLENNIUM Monocytes % 14.1 % CERNER MILLENNIUM Monocyte Abs 0.5 0.2 - 1.0 CERNER x10(3)/mcL MILLENNIUM Eosinophils % 3.3 % CERNER MILLENNIUM Eosinophils Abs 0.1 0.0 - 0.5 CERNER x10(3)/mcL MILLENNIUM Basophils [...] Location / / Volume Laterality Blood specimen 07/13/2014 11:24 5 (specimen) AM EST 11:35 AM EST Resulting Agency Comment Spec In Lab Wilfred Nelson MD HEMATOLOGY ORDERABLES Performing Organization Address City/State/[place] [address] CERNER MILLENNIUM (ABNORMAL) Hemogram (07/13/2014 11:24 AM EST) P athologist Signature WBC 3.3 (L) 4.0 - 10.0 CERNER x10(3)/mcL MILLENNIUM RBC 4.12 (L) 4.63 - CERNER 6.08 MILLENNIUM x10(6)/mcL Hemoglobin 11.9 (L) 13.7 - CERNER 17.5 gm/dL MILLENNIUM Hematocrit 35.6 (L) 40.0 - CERNER 51.0 % MILLENNIUM MCV 86.4 79.0 - CERNER 92.0 fL MILLENNIUM MCH 28.9 25.6 - CERNER 32.2 pg MILLENNIUM MCHC 33.4 32.0 - CERNER 36.5 gm/dL MILLENNIUM Platelets 90 (L) 145 - 370 CERNER x10(3)/mcL MILLENNIUM RDWSD 48.5 (H) 35.0 - CERNER 46.0 fL MILLENNIUM RDWCV 15.4 (H) 10.9 - CERNER 14.4 % MILLENNIUM MPV 10.7 9.0 - 12.0 CERNER fL MILLENNIUM Specimen Anatomical Collection Method Collection Time Receive d Time (Source) Location / / Volume Laterality Blood specimen 07/13/2014 11:24 5 (specimen) AM EST 11:35 AM EST Resulting Agency Comment Spec In Lab Wilfred Nelson MD HEMATOLOGY ORDERABLES Performing Organization Address City/State/[place] [address] CERNER MILLENNIUM (ABNORMAL) Basic Metabolic Panel (non-fasting) (07/13/2014 11:24 AM EST) athologist Signature Glucose Lvl 98 60 - 199 CERNER mg/dL MILLENNIUM Comment: Diabetes: >=200 mg/dL plus symp toms BUN 33 (H) 10 - 20 mg/dL CERNER MILLENNIU M Creatinine 1.00 0.80 - 1.50 mg/dL CERNER MILL ENNIUM Comment: Please note that the pediatric reference intervals supplied above were not validated at [facility]. Results from pediatri c patients should be interpreted in conjunction to the patient's age, height and muscle mass. Sodium 134 (L) 135 - 145 mmol/L CERNER ELISE NIUM [...] estions. Chloride 99 98 - 107 mmol/L CERNER MILLENN IUM CO2 23 22 - 31 mmol/L CERNER MILLENNI UM Anion Gap 12 5 - 15 mmol/L CERNER MILLENNIU M [...] the following links into your internet browser. [email or web address]/DHnkdep [email or web address]/DHMCnkf Specimen Anatomical Collection Method Collection Time Receive d Time (Source) Location / / Volume Laterality Blood specimen 07/13/2014 11:24 5 (specimen) AM EST 11:35 AM EST Resulting Agency Comment Spec In Lab Wilfred Nelson MD CHEMISTRY ORDERABLES Performing Organization Address City/[facility]/ZIP Code Phon e Number [address] CERNER MILLENNIUM POCT Glucose (07/13/2014 7:46 AM EST) athologist Signature POC Glucose 98 60 - 199 CERNER mg/dL MILLENNIUM Comment: Supplemental ranges: <140 mg/dL before meals <180 mg/dL all other times of the day Specimen Anatomical Collection Method Collection Time Receive d Time (Source) Location / / Volume Laterality Blood specimen 07/13/2014 7:46 AM 015 7:46 (specimen) EST AM EST Caridad Ren MD POINT OF CARE TEST ORDERABLE S Performing Organization Address City/[facility]/ZIP Code Phon e Number [address] CERNER MILLENNIUM POCT Glucose (07/13/2014 3:58 AM EST) athologist Signature POC Glucose 117 60 - 199 CERNER mg/dL MILLENNIUM Comment: Supplemental ranges: <140 mg/dL before meals <180 mg/dL all other times of the day Specimen Anatomical Collection Method Collection Time Receive d Time (Source) Location / / Volume Laterality Blood specimen 07/13/2014 3:58 AM 015 3:58 (specimen) EST AM EST Caridad Ren MD POINT OF CARE TEST ORDERABLE S Performing Organization Address City/[facility]/ZIP Code Phon e Number [address] CERNER MILLENNIUM POCT Glucose (07/12/2014 9:04 PM EST) athologist Signature POC Glucose 116 60 - 199 CERNER mg/dL MILLENNIUM Comment: Supplemental ranges: <140 mg/dL before meals <180 mg/dL all other times of the day Specimen Anatomical Collection Method Collection Time Receive d Time (Source) Location / / Volume Laterality Blood specimen 07/12/2014 9:04 PM 015 9:04 (specimen) EST PM EST Caridad Ren MD POINT OF CARE TEST ORDERABLE S Performing Organization Address City/[facility]/[place] [address] CERNER MILLENNIUM POCT Glucose (07/12/2014 3:44 PM EST) athologist Signature POC Glucose 92 60 - 199 CERNER mg/dL MILLENNIUM Comment: Supplemental ranges: <140 mg/dL before meals <180 mg/dL all other times of the day Specimen Anatomical Collection Method Collection Time Receive d Time (Source) Location / / Volume Laterality Blood specimen 07/12/2014 3:44 PM 015 3:44 (specimen) EST PM EST Cardiad Ren MD POINT OF CARE TEST ORDERABLE S Performing Organization Address City/[facility]/ZIP Code Phon e Number [address] CERNER MILLENNIUM POCT Glucose (07/12/2014 11:36 AM EST) athologist Signature POC Glucose 171 60 - 199 CERNER mg/dL MILLENNIUM Comment: Supplemental ranges: <140 mg/dL before meals <180 mg/dL all other times of the day Specimen Anatomical Collection Method Collection Time Receive d Time (Source) Location / / Volume Laterality Blood specimen 07/12/2014 11:36 5 (specimen) AM EST 11:36 AM EST Caridad Ren MD POINT OF CARE TEST ORDERABLE S Performing Organization Address City/State/ZIP Code Phon e Number [address] CERNER MILLENNIUM (ABNORMAL) Differential, Automated (07/12/2014 9:28 AM EST) [facility] gist Method Time Signature Neutrophils % 62.1 % CERNER MILLENNIUM Neutr Abs (ANC) 2.20 1.50 - CERNER 6.30 MILLENNIUM x10(3)/mcL Lymphocytes % 20.1 % CERNER MILLENNIUM Lymphocytes Abs 0.7 (L) 1.0 - 3.6 CERNER x10(3)/mcL MILLENNIUM Monocytes % 13.6 % CERNER MILLENNIUM Monocyte Abs 0.5 0.2 - 1.0 CERNER x10(3)/mcL MILLENNIUM Eosinophils % 3.4 % CERNER MILLENNIUM Eosinophils Abs 0.1 0.0 - 0.5 CERNER x10(3)/mcL MILLENNIUM Basophils % 0.8 % CERNER MILLENNIUM Basophils Abs 0.0 0.0 [...] Location / / Volume Laterality Blood specimen 07/12/2014 9:28 AM 015 9:31 (specimen) EST AM EST Resulting Agency Comment Spec In Lab Wilfred Nelson MD HEMATOLOGY ORDERABLES Performing Organization Address City/State/[place] [address] CERNER MILLENNIUM (ABNORMAL) Hemogram (07/12/2014 9:28 AM EST) P athologist Signature WBC 3.5 (L) 4.0 - 10.0 CERNER x10(3)/mcL MILLENNIUM RBC 3.81 (L) 4.63 - CERNER 6.08 MILLENNIUM x10(6)/mcL Hemoglobin 11.0 (L) 13.7 - CERNER 17.5 gm/dL MILLENNIUM Hematocrit 33.8 (L) 40.0 - CERNER 51.0 % MILLENNIUM MCV 88.7 79.0 - CERNER 92.0 fL MILLENNIUM MCH 28.9 25.6 - CERNER 32.2 pg MILLENNIUM MCHC 32.5 32.0 - CERNER 36.5 gm/dL MILLENNIUM Platelets 113 (L) 145 - 370 CERNER x10(3)/mcL MILLENNIUM RDWSD 50.1 (H) 35.0 - CERNER 46.0 fL MILLENNIUM RDWCV 15.5 (H) 10.9 - CERNER 14.4 % MILLENNIUM MPV 10.6 9.0 - 12.0 CERNER fL MILLENNIUM Specimen Anatomical Collection Method Collection Time Receive d Time (Source) Location / / Volume Laterality Blood specimen 07/12/2014 9:28 AM 015 9:31 (specimen) EST AM EST Resulting Agency Comment Spec In Lab Wilfred Nelson MD HEMATOLOGY ORDERABLES Performing Organization Address City/[facility] [place] [address] CERNER MILLENNIUM (ABNORMAL) Hepatic Function Panel (07/12/2014 9:28 AM EST) P athologist Signature Total Protein 8.9 (H) 6.4 - 8.3 CERNER gm/dL MILLENNIUM Albumin 3.3 3.2 - 5.2 CERNER gm/dL MILLENNIUM AST 261 (H) 0 - 39 CERNER unit/L MILLENNIUM ALT 235 (H) 0 - 55 CERNER unit/L MILLENNIUM Alk Phos 91 40 - 120 CERNER unit/L MILLENNIUM Total 0.6 0.2 - 1.3 CERNER Bilirubin mg/dL MILLENNIUM Bili, Direct 0.2 0.0 - 0.3 CERNER mg/dL MILLENNIUM Specimen Anatomical Collection Method Collection Time Receive d Time (Source) Location / / Volume Laterality Blood specimen 07/12/2014 9:28 AM 015 9:31 (specimen) EST AM EST Resulting Agency Comment Spec In Lab Wilfred Nelson MD CHEMISTRY ORDERABLES Performing Organization Address City/[facility]/[place] [address] CERNER MILLENNIUM (ABNORMAL) BMP w/fasting Glucose (07/12/2014 9:28 AM EST) athologist Signature Glucose 172 (H) 65 - 99 CERNER Fasting mg/dL MILLENNIUM Comment: ?Fasting* Glucose Interpretive C riteria Normal ?65-99 mg/dL Impaired Fasting glucose ?100-125 mg/dL Consistent with Diabetes Mellitus ? >or= 126 mg/dL *Fasting is defined as no caloric intake for at least 8 hours In the absence of unequivocal hypergly cemia a plasma glucose value of >or= 126 mg/dL should be repeated on a subseq uent day. Diagnosis and Classification of Diabetes Mellitus, Position Statement from the [place] [employer]. ??Diabete s Care, Volume 33, Supplement 1, Jun 2009 BUN 27 (H) 10 - 20 mg/dL CERNER MILLENNIU M Creatinine 0.98 0.80 - 1.50 mg/dL CERNER MILL ENNIUM Comment: Please note that the pediatric reference intervals supplied above were not validated at [facility]. Results from pediatri c patients should be interpreted in conjunction to the patient's age, height and muscle mass. Sodium 133 (L) 135 - 145 mmol/L CERNER ELISE NIUM Potassium 4.7 3.5 - 5.0 mmol/L CERNER ELISE NIUM Comment: Please note: ??Patients with WBC >100,00 0 may have falsely elevated Potassium levels. ??For accurate Potassium quantif ication in these patients send serum separator tube (gold top) for subsequent determinations. ??Contact the Clinical Chemistry Laboratory if there are any qu estions. Chloride 98 98 - 107 mmol/L CERNER MILLENN IUM CO2 24 22 - 31 mmol/L CERNER MILLENNI UM Anion Gap 11 5 - 15 mmol/L CERNER MILLENNIU M Calcium 9.5 8.5 - 10.5 mg/dL CERNER ELISE NIUM [...] the following links into your internet browser. http://coJuvo/DHnkdep http://coJuvo/DHMCnkf Specimen Anatomical Collection Method Collection Time Receive d Time (Source) Location / / Volume Laterality Blood specimen 07/12/2014 9:28 AM 015 9:31 (specimen) EST AM EST Resulting Agency Comment Spec In Lab Wilfred Nelson MD CHEMISTRY ORDERABLES Performing Organization Address [facility] Phon e Number [address] CERNER MILLENNIUM (ABNORMAL) CK (07/12/2014 9:28 AM EST) athologist Signature CK, Total 6,277 (H) 0 - 200 CERNER unit/L MILLENNIUM Specimen Anatomical Collection Method Collection Time Receive d Time (Source) Location / / Volume Laterality Blood specimen 07/12/2014 9:28 AM 015 9:31 (specimen) EST AM EST Resulting Agency Comment Spec In Lab Wilfred Nelson MD CHEMISTRY ORDERABLES Performing Organization Address [facility] [place] [address] CERNER MILLENNIUM POCT Glucose (07/12/2014 7:16 AM EST) athologist Signature POC Glucose 104 60 - 199 CERNER mg/dL [facility] Comment: Supplemental ranges: <140 mg/dL before meals <180 mg/dL all other times of the day Specimen Anatomical Collection Method Collection Time Receive d Time (Source) Location / / Volume Laterality Blood specimen 07/12/2014 7:16 AM 015 7:16 (specimen) EST AM EST Caridad Ren MD POINT OF CARE TEST ORDERABLE S Performing Organization Address City/State/ZIP Code Phon e Number [address] CERNER MILLENNIUM POCT Glucose (07/12/2014 3:50 AM EST) P athologist Signature POC Glucose 99 60 - 199 CERNER mg/dL MILLENNIUM Comment: Supplemental ranges: <140 mg/dL before meals <180 mg/dL all other times of the day Specimen Anatomical Collection Method Collection Time Receive d Time (Source) Location / / Volume Laterality Blood specimen 07/12/2014 3:50 AM 015 3:50 (specimen) EST AM EST Caridad Ren MD POINT OF CARE TEST ORDERABLE S Performing Organization Address City/[facility]/ZIP Code Phon e Number [address] CERNER MILLENNIUM POCT Glucose (07/11/2014 11:45 PM EST) athologist Signature POC Glucose 109 60 - 199 CERNER mg/dL MILLENNIUM Comment: Supplemental ranges: <140 mg/dL before meals <180 mg/dL all other times of the day Specimen Anatomical Collection Method Collection Time Receive d Time (Source) Location / / Volume Laterality Blood specimen 07/11/2014 11:45 5 (specimen) PM EST 11:45 PM EST Authorizing Provider Result Denise Ren MD POINT OF CARE TEST ORDERABLE S Performing Organization Address City/State/ZIP Code Phon e Number [address] CERNER MILLENNIUM POCT Glucose (07/11/2014 7:39 PM EST) athologist Signature POC Glucose 106 60 - 199 CERNER mg/dL MILLENNIUM Comment: Supplemental ranges: <140 mg/dL before meals <180 mg/dL all other times of the day Specimen Anatomical Collection Method Collection Time Receive d Time (Source) Location / / Volume Laterality Blood specimen 07/11/2014 7:39 PM 015 7:39 (specimen) EST PM EST Authorizing Provider Result Denise Ren MD POINT OF CARE TEST ORDERABLE S Performing Organization Address City/State/[place] [address] CERNER MILLENNIUM POCT Glucose (07/11/2014 4:17 PM EST) athologist Signature POC Glucose 121 60 - 199 CERNER mg/dL MILLENNIUM Comment: Supplemental ranges: <140 mg/dL before meals <180 mg/dL all other times of the day Specimen Anatomical Collection Method Collection Time Receive d Time (Source) Location / / Volume Laterality Blood specimen 07/11/2014 4:17 PM 015 4:17 (specimen) EST PM EST Caridad Ren MD POINT OF CARE TEST ORDERABLE S Performing Organization Address City/State/ZIP Code Phon e Number [address] CERNER MILLENNIUM POCT Glucose (07/11/2014 12:04 PM EST) athologist Signature POC Glucose 77 60 - 199 CERNER mg/dL MILLENNIUM Comment: Supplemental ranges: <140 mg/dL before meals <180 mg/dL all other times of the day Specimen Anatomical Collection Method Collection Time Receive d Time (Source) Location / / Volume Laterality Blood specimen 07/11/2014 12:04 5 (specimen) PM EST 12:04 PM EST Caridad Ren MD POINT OF CARE TEST ORDERABLE S Performing Organization Address City/State/ZIP Code Phon e Number [address] CERNER MILLENNIUM POCT Glucose (07/11/2014 6:50 AM EST) athologist Signature POC Glucose 75 60 - 199 CERNER mg/dL MILLENNIUM Comment: Supplemental ranges: <140 mg/dL before meals <180 mg/dL all other times of the day Specimen Anatomical Collection Method Collection Time Receive d Time (Source) Location / / Volume Laterality Blood specimen 07/11/2014 6:50 AM 015 6:50 (specimen) EST AM EST Caridad Ren MD POINT OF CARE TEST ORDERABLE S Performing Organization Address City/State/[place] [address] CERNER MILLENNIUM POCT Glucose (07/11/2014 4:14 AM EST) athologist Signature POC Glucose 74 60 - 199 CERNER mg/dL [facility] Comment: Supplemental ranges: <140 mg/dL before meals <180 mg/dL all other times of the day Specimen Anatomical Collection Method Collection Time Receive d Time (Source) Location / / Volume Laterality Blood specimen 07/11/2014 4:14 AM 015 4:14 (specimen) EST AM EST Authorizing Provider Result Denise Ren MD POINT OF CARE TEST ORDERABLE S Performing Organization Address City/State/ZIP Code Phon e Number [address] CERNER MILLENNIUM POCT Glucose (07/10/2014 11:42 PM EST) athologist Signature POC Glucose 95 60 - 199 CERNER mg/dL [facility] Comment: Supplemental ranges: <140 mg/dL before meals <180 mg/dL all other times of the day Specimen Anatomical Collection Method Collection Time Receive d Time (Source) Location / / Volume Laterality Blood specimen 07/10/2014 11:42 5 (specimen) PM EST 11:42 PM EST Authorizing Provider Result Denise Ren MD POINT OF CARE TEST ORDERABLE S Performing Organization Address City/[facility]/ZIP Code Phon e Number [address] CERNER MILLENNIUM POCT Glucose (07/10/2014 7:56 PM EST) athologist Signature POC Glucose 113 60 - 199 CERNER mg/dL [facility] Comment: Supplemental ranges: <140 mg/dL before meals <180 mg/dL all other times of the day Specimen Anatomical Collection Method Collection Time Receive d Time (Source) Location / / Volume Laterality Blood specimen 07/10/2014 7:56 PM 015 7:56 (specimen) EST PM EST Authorizing Provider Result Denise Ren MD POINT OF CARE TEST ORDERABLE S Performing Organization Address City/State/ZIP Code Phon e Number [address] CERNER MILLENNIUM POCT Glucose (07/10/2014 4:10 PM EST) athologist Signature POC Glucose 116 60 - 199 CERNER mg/dL MILLENNIUM Comment: Supplemental ranges: <140 mg/dL before meals <180 mg/dL all other times of the day Specimen Anatomical Collection Method Collection Time Receive d Time (Source) Location / / Volume Laterality Blood specimen 07/10/2014 4:10 PM 015 4:10 (specimen) EST PM EST Caridad Ren MD POINT OF CARE TEST ORDERABLE S Performing Organization Address City/State/[place] [address] CERNER MILLENNIUM POCT Glucose (07/10/2014 12:05 PM EST) athologist Signature POC Glucose 149 60 - 199 CERNER mg/dL ENNIUM Comment: Supplemental ranges: <140 mg/dL before meals <180 mg/dL all other times of the day Specimen Anatomical Collection Method Collection Time Receive d Time (Source) Location / / Volume Laterality Blood specimen 07/10/2014 12:05 5 (specimen) PM EST 12:05 PM EST Caridad Ren MD POINT OF CARE TEST ORDERABLE S Performing Organization Address City/State/ZIP Code Phon e Number [address] CERNER MILLENNIUM POCT Glucose (07/10/2014 7:14 AM EST) athologist Signature POC Glucose 86 60 - 199 CERNER mg/dL ENNIUM Comment: Supplemental ranges: <140 mg/dL before meals <180 mg/dL all other times of the day Specimen Anatomical Collection Method Collection Time Receive d Time (Source) Location / / Volume Laterality Blood specimen 07/10/2014 7:14 AM 015 7:14 (specimen) EST AM EST Caridad Ren MD POINT OF CARE TEST ORDERABLE S Performing Organization Address City/State/ZIP Code Phon e Number [address] CERNER MILLENNIUM POCT Glucose (07/10/2014 6:41 AM EST) athologist Signature POC Glucose 65 60 - 199 CERNER mg/dL [facility] Comment: Supplemental ranges: <140 mg/dL before meals <180 mg/dL all other times of the day Specimen Anatomical Collection Method Collection Time Receive d Time (Source) Location / / Volume Laterality Blood specimen 07/10/2014 6:41 AM 015 6:41 (specimen) EST AM EST Caridad Ren MD POINT OF CARE TEST ORDERABLE S Performing Organization Address City/State/ZIP Code Phon e Number [address] CERNER MILLENNIUM POCT Glucose (07/10/2014 4:35 AM EST) athologist Signature POC Glucose 94 60 - 199 CERNER mg/dL [facility] Comment: Supplemental ranges: <140 mg/dL before meals <180 mg/dL all other times of the day Specimen Anatomical Collection Method Collection Time Receive d Time (Source) Location / / Volume Laterality Blood specimen 07/10/2014 4:35 AM 015 4:35 (specimen) EST AM EST Caridad Ren MD POINT OF CARE TEST ORDERABLE S Performing Organization Address City/[facility]/ZIP Code Phon e Number [address] CERNER MILLENNIUM POCT Glucose (07/10/2014 3:53 AM EST) athologist Signature POC Glucose 62 60 - 199 CERNER mg/dL [facility] Comment: Supplemental ranges: <140 mg/dL before meals <180 mg/dL all other times of the day Specimen Anatomical Collection Method Collection Time Receive d Time (Source) Location / / Volume Laterality Blood specimen 07/10/2014 3:53 AM 015 3:53 (specimen) EST AM EST Caridad Ren MD POINT OF CARE TEST ORDERABLE S Performing Organization Address City/[facility]/ZIP Code Phon e Number [address] CERNER MILLENNIUM POCT Glucose (07/09/2014 11:44 PM EST) athologist Signature POC Glucose 76 60 - 199 CERNER mg/dL E[facility]UM Comment: Supplemental ranges: <140 mg/dL before meals <180 mg/dL all other times of the day Specimen Anatomical Collection Method Collection Time Receive d Time (Source) Location / / Volume Laterality Blood specimen 07/09/2014 11:44 5 (specimen) PM EST 11:44 PM EST Caridad Ren MD POINT OF CARE TEST ORDERABLE S Performing Organization Address City/State/ZIP Code Phon e Number [address] CERNER MILLENNIUM POCT Glucose (07/09/2014 7:46 PM EST) athologist Signature POC Glucose 151 60 - 199 CERNER mg/dL [facility] Comment: Supplemental ranges: <140 mg/dL before meals <180 mg/dL all other times of the day Specimen Anatomical Collection Method Collection Time Receive d Time (Source) Location / / Volume Laterality Blood specimen 07/09/2014 7:46 PM 015 7:46 (specimen) EST PM EST Caridad Ren MD POINT OF CARE TEST ORDERABLE S Performing Organization Address City/State/ZIP Code Phon e Number [address] CERNER MILLENNIUM POCT Glucose (07/09/2014 4:17 PM EST) athologist Signature POC Glucose 131 60 - 199 CERNER mg/dL [facility] Comment: Supplemental ranges: <140 mg/dL before meals <180 mg/dL all other times of the day Specimen Anatomical Collection Method Collection Time Receive d Time (Source) Location / / Volume Laterality Blood specimen 07/09/2014 4:17 PM 015 4:17 (specimen) EST PM EST Authorizing Provider Result Denise Ren MD POINT OF CARE TEST ORDERABLE S Performing Organization Address City/[facility]/ZIP Code Phon e Number [address] CERNER MILLENNIUM (ABNORMAL) Urinalysis with microscopic (07/09/2014 2:13 PM EST) [facility] Method Time Signature Glucose UA Negative [...] Normal mg/dL CERNER MILL ENNIUM pH UA 6.0 5.0 - 8.0 CERNER MILLENNIUM Blood UA Small (A) Negative mg/dL CERNER MILLENNI UM Ketones UA Negative Negative mg/dL CERNER MILLENN IUM Nitrite UA Negative Negative CERNER MILLENNIUM Leukocytes UA Large (A) Negative mcL CERNER ELISE NIUM Appearance UA Hazy (A) Clear CERNER MILLENNIU M Spec Wilmore UA 1.014 1.002 - 1.030 CERNER MIL LENNIUM Color UA Yellow Yellow CERNER MILLENNIUM RBC UA 4 (H) 0 - 3 /HPF CERNER MILLENNIUM WBC UA 57 (H) 0 - 3 /HPF CERNER MILLENNIUM Bacteria UA Rare (A) None /HPF CERNER MILLENNIUM Squam Epith UA <1 <=4 /HPF CERNER MILLENNI UM Specimen Anatomical Collection Method Collection Time Receive d Time (Source) Location / / Volume Laterality Urine specimen 07/09/2014 2:13 PM 015 2:20 (specimen) EST PM EST Resulting Agency Comment Spec In Lab Caridad Ren MD URINE ORDERABLES Performing Organization Address City/State/[place] [address] CERNER MILLENNIUM Urine culture Clean Catch Urine (07/09/2014 2:12 PM EST) [facility] Method Time Signature Urine Culture CERNER ? Patient Name: BUCKY ACEVEDO ?Ordered By: CARIDAD REN ? MR#: [id number] ?LOC: ??5WST ? /Sex: ??1960 (54 years), ? Male ? PROCEDURE: Urine Culture ?SOURCE: U CC ? COLLECTED: 07/09/2014 14:12 ? STARTED: 07/09/2014 14:34 ? FINAL REPORT ? Final Report ? Verified:07/10/2014 07:29 ? No growth (Less than 1,000 cfu/ml). ? Specimen (Source) Anatomical Collection Method Collection Time Re ceived Time Location / / Volume Laterality Urine specimen 07/09/2014 2:12 07/09/2014 2:34 obtained by clean PM EST PM EST catch procedure (specimen) Resulting Agency Comment Spec In Lab Caridad Ren MD MICROBIOLOGY - GENERAL ORDER [place] Performing Organization Address City/State/ZIP Code Phon e Number [address] CERNER [employer] SolutionENNIUM POCT Glucose (07/09/2014 11:35 AM EST) P athologist Signature POC Glucose 115 60 - 199 CERNER mg/dL [facility] Comment: Supplemental ranges: <140 mg/dL before meals <180 mg/dL all other times of the day Specimen Anatomical Collection Method Collection Time Receive d Time (Source) Location / / Volume Laterality Blood specimen 07/09/2014 11:35 5 (specimen) AM EST 11:35 AM EST Caridad Ren MD POINT OF CARE TEST ORDERABLE S Performing Organization Address City/State/ZIP Code Phon e Number [address] CERChirpifyENNIUM Differential, Automated (07/09/2014 7:35 AM EST) P athologist Signature Neutrophils % 62.9 % CERNER MILLENNIUM Neutr Abs (ANC) 4.09 1.50 - CERNER 6.30 MILLENNIUM x10(3)/mcL Lymphocytes % 23.8 % CERNER MILLENNIUM Lymphocytes Abs 1.6 1.0 - 3.6 CERNER x10(3)/mcL MILLENNIUM Monocytes % 8.8 % CERNER MILLENNIUM Monocyte Abs 0.6 0.2 - 1.0 CERNER x10(3)/mcL MILLENNIUM Eosinophils % 4.0 % CERNER MILLENNIUM Eosinophils Abs 0.3 0.0 [...] Location / / Volume Laterality Blood specimen 07/09/2014 7:35 AM 015 8:19 (specimen) EST AM EST Resulting Agency Comment Spec In Lab Caridad Ren MD HEMATOLOGY ORDERABLES Performing Organization Address City/State/[place] [address] CERNER MILLENNIUM (ABNORMAL) Hemogram (07/09/2014 7:35 AM EST) P athologist Signature WBC 6.5 4.0 - 10.0 CERNER x10(3)/mcL MILLENNIUM RBC 4.05 (L) 4.63 - CERNER 6.08 MILLENNIUM x10(6)/mcL Hemoglobin 11.5 (L) 13.7 - CERNER 17.5 gm/dL MILLENNIUM Hematocrit 35.3 (L) 40.0 - CERNER 51.0 % MILLENNIUM MCV 87.2 79.0 - CERNER 92.0 fL MILLENNIUM MCH 28.4 25.6 - CERNER 32.2 pg MILLENNIUM MCHC 32.6 32.0 - CERNER 36.5 gm/dL MILLENNIUM Platelets 130 (L) 145 - 370 CERNER x10(3)/mcL MILLENNIUM RDWSD 48.0 (H) 35.0 - CERNER 46.0 fL MILLENNIUM RDWCV 15.1 (H) 10.9 - CERNER 14.4 % MILLENNIUM MPV 11.3 9.0 - 12.0 CERNER fL MILLENNIUM Specimen Anatomical Collection Method Collection Time Receive d Time (Source) Location / / Volume Laterality Blood specimen 07/09/2014 7:35 AM 015 8:19 (specimen) EST AM EST Resulting Agency Comment Spec In Lab Caridad Ren MD HEMATOLOGY ORDERABLES Performing Organization Address City/State/ZIP Code Phon e Number [place] [id number] CERNER MILLENNIUM Basic Metabolic Panel (non-fasting) (07/09/2014 7:35 AM EST) athologist Signature Glucose Lvl 84 60 - 199 CERNER mg/dL MILLENNIUM Comment: Diabetes: >=200 mg/dL plus symp toms BUN 18 10 - 20 mg/dL CERNER MILLENNIU M Creatinine 0.92 0.80 - 1.50 mg/dL CERNER MILL ENNIUM Comment: Please note that the pediatric reference intervals supplied above were not validated at [facility]. Results from pediatri c patients should be interpreted in conjunction to the patient's age, height and muscle mass. Sodium 141 135 - 145 mmol/L CERNER ELISE NIUM Potassium 4.1 3.5 - 5.0 mmol/L CERNER ELISE NIUM [...] - 15 mmol/L CERNER MILLENNIU M Calcium 9.4 8.5 - 10.5 mg/dL CERNER ELISE NIUM [...] the following links into your internet browser. [email or web address] Specimen Anatomical Collection Method Collection Time Receive d Time (Source) Location / / Volume Laterality Blood specimen 07/09/2014 7:35 AM 015 8:19 (specimen) EST AM EST Resulting Agency Comment Spec In Lab Caridad Ren MD CHEMISTRY ORDERABLES Performing Organization Address City/[facility]/ZIP Code Phon e Number [address] [facility] MILLENNIUM (ABNORMAL) CK (07/09/2014 7:35 AM EST) P athologist Signature CK, Total 5,535 (H) 0 - 200 CERNER unit/L MILLENNIUM Specimen Anatomical Collection Method Collection Time Receive d Time (Source) Location / / Volume Laterality Blood specimen 07/09/2014 7:35 AM 015 8:19 (specimen) EST AM EST Resulting Agency Comment Spec In Lab Caridad Ren MD CHEMISTRY ORDERABLES Performing Organization Address City/[facility]/ZIP Code Phon e Number [address] [facility] APTT (07/09/2014 7:35 AM EST) P athologist Signature PTT 33 25 - 35 sec [facility] Comment: Recommended therapeutic PTT range for fu ll dose unfractionated heparin is 80-114 seconds. Specimen Anatomical Collection Method Collection Time Receive d Time (Source) Location / / Volume Laterality Blood specimen 07/09/2014 7:35 AM 015 8:19 (specimen) EST AM EST Resulting Agency Comment Spec In Lab Caridad Ren MD HEMATOLOGY ORDERABLES Performing Organization Address City/[facility] [place] [address] CERNER MILLENNIUM (ABNORMAL) Prothrombin Time (07/09/2014 7:35 AM EST) P athologist Signature PT 15.6 (H) 12.5 - 15.5 CERNER sec MILLENNIUM Comment: Transfusion Committee Guidelines: INR less than 2.0, PTT less than OR equal to 43.5 seconds, or Fibrinogen greater t [place] or equal to 100 mg/dl indicate adequate procoagulant activity for hemos tasis in patients without underlying bleeding disorders. INR 1.2 (H) 0.9 - 1.1 CERNER MILLENNIUM Specimen Anatomical Collection Method Collection Time Receive d Time (Source) Location / / Volume Laterality Blood specimen 07/09/2014 7:35 AM 015 8:19 (specimen) EST AM EST Resulting Agency Comment Spec In Lab Caridad Ren MD HEMATOLOGY ORDERABLES Performing Organization Address City/[facility]/ZIP Code Phon e Number [address] CERNER MILLENNIUM Phosphorus (07/09/2014 7:35 AM EST) P athologist Signature Phosphorus 3.9 2.5 - 4.5 CERNER mg/dL MILLENNIUM Specimen Anatomical Collection Method Collection Time Receive d Time (Source) Location / / Volume Laterality Blood specimen 07/09/2014 7:35 AM 015 8:19 (specimen) EST AM EST Resulting Agency Comment Spec In Lab Caridad Ren MD CHEMISTRY ORDERABLES Performing Organization Address City/[facility]/ZIP [facility] [place] [address] CERNER MILLENNIUM (ABNORMAL) Magnesium (07/09/2014 7:35 AM EST) athologist Signature Magnesium 0.64 (L) 0.69 - 1.07 CERNER mmol/L MILLENNIUM Specimen Anatomical Collection Method Collection Time Receive d Time (Source) Location / / Volume Laterality Blood specimen 07/09/2014 7:35 AM 015 8:19 (specimen) EST AM EST Resulting Agency Comment Spec In Lab Caridad Ren MD CHEMISTRY ORDERABLES Performing Organization Address City/[facility]/ZIP Code Phon e Number [address] CERNER MILLENNIUM POCT Glucose (07/09/2014 7:17 AM EST) athologist Signature POC Glucose 84 60 - 199 CERNER mg/dL MILLENNIUM Comment: Supplemental ranges: <140 mg/dL before meals <180 mg/dL all other times of the day Specimen Anatomical Collection Method Collection Time Receive d Time (Source) Location / / Volume Laterality Blood specimen 07/09/2014 7:17 AM 015 7:17 (specimen) EST AM EST Caridad Ren MD POINT OF CARE TEST ORDERABLE S Performing Organization Address City/[facility]/ZIP Code Phon e Number [address] CERNER MILLENNIUM POCT Glucose (07/09/2014 3:57 AM EST) athologist Signature POC Glucose 92 60 - 199 CERNER mg/dL MILLENNIUM Comment: Supplemental ranges: <140 mg/dL before meals <180 mg/dL all other times of the day Specimen Anatomical Collection Method Collection Time Receive d Time (Source) Location / / Volume Laterality Blood specimen 07/09/2014 3:57 AM 015 3:57 (specimen) EST AM EST Caridad Ren MD POINT OF CARE TEST ORDERABLE S Performing Organization Address City/[facility]/ZIP Code Phon e Number [address] CERNER MILLENNIUM POCT Glucose (07/08/2014 11:53 PM EST) athologist Signature POC Glucose 122 60 - 199 CERNER mg/dL MILLENNIUM Comment: Supplemental ranges: <140 mg/dL before meals <180 mg/dL all other times of the day Specimen Anatomical Collection Method Collection Time Receive d Time (Source) Location / / Volume Laterality Blood specimen 07/08/2014 11:53 5 (specimen) PM EST 11:53 PM EST Caridad Ren MD POINT OF CARE TEST ORDERABLE S Performing Organization Address City/State/[place] [address] COLLIN WALTER documented in this encounter Visit Diagnoses Diagnosis Skin rash Rash and other nonspecific skin eruption documented in this encounter Administered Medications Inactive Administered Medications - up to 3 most recent administrations Medication Order MAR Action Action Date Dose Rate Site atenolol (TENORMIN) tablet 50 mg Given 07/13/2014 8:13 AM EST 50 mg 50 mg, Oral, DAILY, First dose on Sat07/09/14 at 0900, Until Discontinued, Routine Given 07/12/2014 9:02 AM EST 50 mg Given 07/11/2014 9:14 AM EST 50 mg docusate sodium (COLACE) capsule 100 mg Given 07/12/2014 9:03 AM EST 100 mg 100 mg, Oral, 2 TIMES DAILY, First dose on Sat07/08/14 at 2330, Until Discontinued, Routine Given 07/10/2014 9:07 AM EST 100 mg enoxaparin (LOVENOX) injection 40 mg Given 07/13/2014 8:14 AM EST 40 mg 40 mg, Subcutaneous, DAILY, First dose on Sat07/09/14 at 0900, Until Discontinued, Routine Given 07/12/2014 9:05 AM EST 40 mg Given 07/11/2014 9:14 AM EST 40 mg esomeprazole (NexIUM) capsule 40 mg Given 07/13/2014 8:13 AM EST 40 mg 40 mg, Oral, DAILY, First dose on Sat07/09/14 at 0900, Until Discontinued, Omeprazole changed per P&T approved therapeutic interchange policy, Routine Given 07/12/2014 9:03 AM EST 40 mg Given 07/11/2014 9:14 AM EST 40 mg ferrous sulfate EC tablet 325 mg Given 07/13/2014 8:13 AM EST 325 mg 325 mg, Oral, 2 TIMES DAILY, First dose on Sat07/08/14 at 2330, Until Discontinued, Routine Given 07/12/2014 9:17 PM EST 325 mg Given 07/12/2014 9:04 AM EST 325 mg hydrochlorothiazide (HYDRODIURIL) tablet 25 mg Given 07/13/2014 8:13 AM EST 25 mg 25 mg, Oral, DAILY, First dose on Sat07/09/14 at 0900, Until Discontinued, Routine Given 07/12/2014 9:04 AM EST 25 mg Given 07/11/2014 9:14 AM EST 25 mg immune globulin (GAMUNEX-C) 20 Rate/Dose Change 07/09/2014 8:53 PM 20 g 99 mL/hr gram/200 mL (10 %) solution 20 EST g 20 g, Intravenous, ONCE, 1 dose, On Sat07/09/14 at 1800, For a total dose of 45 g X1 Gradually Increase rate as tolerated, per guidelines. Initial rate: 0.01-0.02mL/kg/min, Interim rate: 0.04mL/kg/min, Maxiumim rate: 0.08mL/kg/min, Please indicate the name & specialty of the Attending Provider who authorized the use of this medication: [place], As of December 2020 IVIG supply has stabilized; the below listed indications are approved for use via P&T. All other indications require approval by P&T Chair or On-Call Marketing Traffic Manager. Multifocal motor neuropathy New Bag 07/09/2014 6:25 PM EST 20 g immune globulin (GAMUNEX-C) 20 Rate/Dose Change 07/10/2014 12:00 AM 20 g 150 mL/hr gram/200 mL (10 %) solution 20 EST g 20 g, Intravenous, ONCE, 1 dose, On Sat07/09/14 at 2000, For a total dose of 45 g X1 Gradually Increase rate as tolerated, per guidelines. Initial rate: 0.01-0.02mL/kg/min, Interim rate: 0.04mL/kg/min, Maxiumim rate: 0.08mL/kg/min, Please indicate the name & specialty of the Attending Provider who authorized the use of this medication: [place], As of December 2020 IVIG supply has stabilized; the below listed indications are approved for use via P&T. All other indications require approval by P&T Chair or On-Call Marketing Traffic Manager. Multifocal motor neuropathy New Bag 07/09/2014 11:24 PM EST 20 g 132 mL/hr immune globulin (GAMUNEX-C) 20 gram/200 mL New Bag 07/13/2014 8:52 AM EST 20 g (10 %) solution 20 g 20 g, Intravenous, EVERY 24 HOURS, 4 doses, First dose on Sat07/10/14 at 0900, Last dose on Sat07/13/14 at 0900, Total dose 45 grams Gradually Increase rate as tolerated, per guidelines. Initial rate: 0.01-0.02mL/kg/min, Interim rate: 0.04mL/kg/min, Maxiumim rate: 0.08mL/kg/min, Please indicate the name & specialty of the Attending Provider who authorized the use of this medication: [place], As of December 2020 IVIG supply has stabilized; the below listed indications are approved for use via P&T. All other indications require approval by P&T Chair or On-Call Marketing Traffic Manager. Multifocal motor neuropathy New Bag 07/12/2014 11:05 AM EST 20 g New Bag 07/11/2014 8:51 AM EST 20 g immune globulin (GAMUNEX-C) 20 gram/200 mL New Bag 07/13/2014 9:58 AM EST 20 g (10 %) solution 20 g 20 g, Intravenous, EVERY 24 HOURS, 4 doses, First dose on Sat07/10/14 at 1000, Last dose on Sat07/13/14 at 1000, Total dose 45 grams Gradually Increase rate as tolerated, per guidelines. Initial rate: 0.01-0.02mL/kg/min, Interim rate: 0.04mL/kg/min, Maxiumim rate: 0.08mL/kg/min, Please indicate the name & specialty of the Attending Provider who authorized the use of this medication: [place], As of December 2020 IVIG supply has stabilized; the below listed indications are approved for use via P&T. All other indications require approval by P&T Chair or On-Call Marketing Traffic Manager. Multifocal motor neuropathy New Bag 07/12/2014 9:43 AM EST 20 g 33 mL/hr New Bag 07/11/2014 10:11 AM EST 20 g immune globulin (GAMUNEX-C) 5 gram/50 New Bag 07/10/2014 12:56 AM EST 5 g 132 mL/hr mL (10 %) solution 5 g 5 g, Intravenous, ONCE, 1 dose, On Sat07/09/14 at 2200, For a total dose of 45 g X1 Gradually Increase rate as tolerated, per guidelines. Initial rate: 0.01-0.02mL/kg/min, Interim rate: 0.04mL/kg/min, Maxiumim rate: 0.08mL/kg/min, Please indicate the name & specialty of the Attending Provider who authorized the use of this medication: [place], As of December 2020 IVIG supply has stabilized; the below listed indications are approved for use via P&T. All other indications require approval by P&T Chair or On-Call Marketing Traffic Manager. Multifocal motor neuropathy immune globulin (GAMUNEX-C) 5 gram/50 mL (10 New Bag 08/2014 11:02 AM EST 5 g %) solution 5 g 5 g, Intravenous, EVERY 24 HOURS, 4 doses, First dose on Sat07/10/14 at 1100, Last dose on Sat07/13/14 at 1100, Total dose 45 grams Gradually Increase rate as tolerated, per guidelines. Initial rate: 0.01-0.02mL/kg/min, Interim rate: 0.04mL/kg/min, Maxiumim rate: 0.08mL/kg/min, Please indicate the name & specialty of the Attending Provider who authorized the use of this medication: [place], As of December 2020 IVIG supply has stabilized; the below listed indications are approved for use via P&T. All other indications require approval by P&T Chair or On-Call Marketing Traffic Manager. Multifocal motor neuropathy New Bag 07/12/2014 11:44 AM EST 5 g New Bag 07/11/2014 11:58 AM EST 5 g insulin aspart (novoLOG) VIAL injection 1-4 Given 07/2014 11:44 AM EST 2 Units Units 1-4 Units, Subcutaneous, 3 TIMES DAILY BEFORE MEALS, First dose on Sat07/09/14 at 0730, Until Discontinued, Check with meals and before bed CORRECTION BOLUS Sensitive to insulin lean patient or total daily dose of all insulin needed to achieve glycemic control less than 30 units BG 140 - 160 Give 1 unit BG 161 - 200 Give 2 units BG 201 - 240 Give 3 units BG greater than 240, give 4 units and recheck BG in 2 hours. If BG remains greater than 240, repeat 4 units (no more than three times) & call for new basal insulin orders. If less than 240 after two hours, give no insulin and resume prior schedule. Given 07/10/2014 1:24 PM EST 1 Units insulin glargine (LANTUS) VIAL injection 25 Given 08/2014 8:14 AM EST 25 Units Units 25 Units, Subcutaneous, DAILY, First dose on Sat07/09/14 at 0900, Until Discontinued, Routine Given 07/12/2014 9:11 AM EST 25 Units Given 07/11/2014 9:15 AM EST 25 Units insulin glargine (LANTUS) VIAL injection 25 Given 07/2014 9:19 PM EST 25 Units Units 25 Units, Subcutaneous, NIGHTLY, First dose (after last modification) on Sat07/11/14 at 2100, Until Discontinued, Routine Given 07/11/2014 8:48 PM EST 25 Units insulin glargine (LANTUS) VIAL injection 50 Given 06/12 8:35 PM EST 50 Units Units 50 Units, Subcutaneous, NIGHTLY, First dose (after last modification) on Sat07/10/14 at 2100, Until Discontinued, Routine insulin glargine (LANTUS) VIAL injection 75 Given 06/12 8:48 PM EST 75 Units Units 75 Units, Subcutaneous, NIGHTLY, First dose on Sat07/08/14 at 2330, Until Discontinued, Routine Given 07/09/2014 12:07 AM EST 75 Units lisinopril (PRINIVIL;ZESTRIL) tablet 40 mg Given 07/13/2014 8:12 AM EST 40 mg 40 mg, Oral, DAILY, First dose on Sat07/09/14 at 0900, Until Discontinued, Routine Given 07/12/2014 9:02 AM EST 40 mg Given 07/11/2014 9:14 AM EST 40 mg magnesium oxide (MAG-OX) tablet 400 mg Given 07/10/2014 6:00 AM EST 400 mg 400 mg, Oral, EVERY 2 HOURS, 2 doses, First dose on Sat07/09/14 at 2030, Last dose on Sat07/09/14 at 2230, Routine Given 07/09/2014 10:18 PM EST 400 mg multivitamin (THERAGRAN) tablet 1 tablet Given 07/13/2014 8:12 AM EST 1 tablet 1 tablet, Oral, DAILY, First dose on Sat07/09/14 at 0900, Until Discontinued Given 07/12/2014 9:04 AM EST 1 tablet Given 07/11/2014 9:14 AM EST 1 tablet mycophenolate (CELLCEPT) capsule 500 mg Given 07/13/2014 8:13 AM EST 500 mg 500 mg, Oral, DAILY, First dose on Sat07/09/14 at 1000, Until Discontinued, Routine Given 07/12/2014 9:03 AM EST 500 mg Given 07/11/2014 9:14 AM EST 500 mg traMADol (ULTRAM) tablet 100 mg Given 07/13/2014 8:23 AM EST 100 mg 100 mg, Oral, 2 TIMES DAILY, First dose on Sat07/08/14 at 2330, Until Discontinued, Routine Given 07/12/2014 9:19 PM EST 100 mg Given 07/12/2014 9:05 AM EST 100 mg documented in this encounter Active and Recently Administered Medications Times are shown in EST. Scheduled Medication Order 07/11/2014 07/12/2014 07/13/2014 atenolol (TENORMIN) tablet 50 mg (CANCELED) 0914 (Give n - Provider: Ellen Hernandez RN) 0902 (Given - Provider: Cathy Laurent RN) 0813 (Give n - Provider: Jennifer Lieberman RN) 50 mg, Oral, DAILY, First dose on Sat at 0900, Until Discontinued, Routine docusate sodium (COLACE) capsule 100 mg (CANCELED) 090 0 (Not Given - Provider: Ellen Hernandez RN - Reason: Patient/family refused)2100 (Not Given - Provider: Robles Donovan RN - Reason: Contraindicated) 0903 (Given - Provider: Cathy Laurent RN)2100 (Not Given - Provider: Robles Donovan RN - Reason: Contraindicated) 0900 (Not Given - Provider: Jennifer nichols RN - Reason: Patient/family refused) 100 mg, Oral, 2 TIMES DAILY, First dose on Sat07/08/14 at 2330, Until Discontinued, Routine enoxaparin (LOVENOX) injection 40 mg 0914 (Given - Provider: Ellen Hernandez RN) 0905 (Given - Provider: Cathy Laurent RN) 0814 (Given - Provider: Jennifer Lieberman RN) 40 mg, Subcutaneous, DAILY, First dose o n Sat07/09/14 at 0900, Until Discontinued, Routine esomeprazole (NexIUM) capsule 40 mg (CANCELED) 913 (G iven - Provider: Ellen Hernandez RN) 0903 (Given - Provider: Cathy Laurent RN) 0813 (Give n - Provider: Jennifer Lieberman RN) 40 mg, Oral, DAILY, First dose on Sat at 0900, Until Discontinued, Omeprazole changed per P[employer]T approved therapeutic interchange policy, Routine ferrous sulfate EC tablet 325 mg (CANCELED) 913 (Give n - Provider: Ellen Hernandez RN)2049 (Given - Provider: Robles Donovan RN) 09 (Given - Provider: Cathy Laurent RN)2116 (Given - Provider: Robles Donovan RN) 0813 (Given - Provider: Jennifer Lieberman RN) 325 mg, Oral, 2 TIMES DAILY, First dose on Sat07/08/14 at 2330, Until Discontinued, Routine hydrochlorothiazide (HYDRODIURIL) tablet 25 mg (CANCEL ED) 09 (Given - Provider: Ellen Hernandez RN) 09 (Given - Provider: Ctahy Laurent RN) 0813 (Given - Provider: Jennifer Lieberman RN) 25 mg, Oral, DAILY, First dose on Sat at 0900, Until Discontinued, Routine immune globulin (GAMUNEX-C) 20 gram/200 mL (10 %) solu tion 20 g (COMPLETED) 0851 (New Bag - Provider: Ellen Hernandez RN) 1105 (New Bag - Provider: Cathy Laurent RN) 0852 (New Bag - Provider: Jennifer canales RN) 20 g, Intravenous, EVERY 24 HOURS, 4 dos es, First dose on Sat07/10/14 at 0900, Last dose on Sat07/13/14 at 0900, Total dose 45 grams Gradually Increase rate as tolerated, per guidelines. Initial rate: 0. 01-0.02mL/kg/min, Interim rate: 0.04mL/k g/min, Maxiumim rate: 0.08mL/kg/min, Please indicate the name & specialty of the Attending Provider who authorized the use of this medication: [place], Specify IVIG indication (* = indication for [facility] supply < 1000 grams): Multifocal motor neuropathy immune globulin (GAMUNEX-C) 20 gram/200 mL (10 %) solu tion 20 g (COMPLETED) 1011 (New Bag - Provider: Ellen Hernandez RN) 0943 (New Bag - Provider: Cathy Laurent , WES) 0958 (New Bag - Provider: Jennifer canales, RN) 20 g, Intravenous, EVERY 24 HOURS, 4 dos es, First dose on 07/10/14 at 1000, Last dose on Sat07/13/14 at 1000, Total dose 45 grams Gradually Increase rate as tolerated, per guidelines. Initial rate: 0. 01-0.02mL/kg/min, Interim rate: 0.04mL/k g/min, Maxiumim rate: 0.08mL/kg/min, Please indicate the name & specialty of the Attending Provider who authorized the use of this medication: [place], Specify IVIG indication (* = indication for [facility] supply < 1000 grams): Multifocal motor neuropathy immune globulin (GAMUNEX-C) 5 gram/50 mL (10 %) soluti on 5 g (COMPLETED) 1158 (New Bag - Provider: Ellen Hernandez RN) 1144 (New Bag - Provider: Cathy Laurent , WES) 1102 (New Bag - Provider: Jennifer canales, RN) 5 g, Intravenous, EVERY 24 HOURS, 4 dose s, First dose on Sat07/10/14 at 1100, Last dose on Sat07/13/14 at 1100, Total dose 45 grams Gradually Increase rate as tolerated, per guidelines. Initial rate: 0.0 1-0.02mL/kg/min, Interim rate: 0.04mL/kg /min, Maxiumim rate: 0.08mL/kg/min, Please indicate the name & specialty of the Attending Provider who authorized the use of this medication: [place], Specify I VIG indication (* = indication for [facility] supply < 1000 grams): Multifocal motor neuropathy insulin aspart (novoLOG) VIAL injection 1-4 Units (CAN CELED) 4340 (Not Given - Provider: Alyssa Barragan RN - Reason: Order parameters not met)1130 (Not Given - Provider: Ellen Hernandez RN - Reason: Order parameters not met)1630 (Not Given - Provider: Ellen Hernandez RN - Reason: Order parameters not met) 0730 (Not Given - Provider: Cathy Laurent RN - Reason: Order parameters not met)1144 (Given - Provider: Cathy Laurent RN)1630 (Not Given - Provider: Cathy Laurent RN - Reason: Order parameters not met - Comment: patient drank coke) 0730 (Not Given - Provider: Jennifer Lieberman RN - Reason: Order parameters not met)1130 (Not Given - Provider: Jennifer Lieberman RN - Reason: Order parameters not met) 1-4 Units, Subcutaneous, 3 TIMES DAILY B EFORE MEALS, First dose on Sat07/09/14 at 0730, Until Discontinued, Check with meals and before bed CORRECTION BOLUS Sensitive to insulin lean patient or tota l daily dose of all insulin needed to ac hieve glycemic control less than 30 units BG 140 - 160 Give 1 unit BG 161 - 200 Give 2 units BG 201 - 240 Give 3 units BG greater than 240, give 4 units and reche ck BG in 2 hours. If BG remains greater than 240, repeat 4 units (no more than three times) & call for new basal insulin orders. If less than 240 after two hours, give no insulin and resume prior schedule., Routine insulin glargine (LANTUS) VIAL injection 25 Units (CAN CELED) 0915 (Given - Provider: Ellen Hernandez RN) 0911 (Given - Provider: Cathy Laurent RN) 0814 (Given - Provider: Jennifer Lieberman, WES) 25 Units, Subcutaneous, DAILY, First dos e on Sat07/09/14 at 0900, Until Discontinued, Routine insulin glargine (LANTUS) VIAL injection 25 Units 2047 (Given - Provider: Robles Donovan, WES) 2118 (Given - Provider: Robles Donovan, WES) 25 Units, Subcutaneous, NIGHTLY, First d ose on Sat07/11/14 at 2100, Until Discontinued, Routine lisinopril (PRINIVIL;ZESTRIL) tablet 40 mg (CANCELED) 0914 (Given - Provider: Ellen Hernandez RN) 09 (Given - Provider: Cathy Laurent RN) 0812 (Give n - Provider: Jennifer Lieberman RN) 40 mg, Oral, DAILY, First dose on Sat at 0900, Until Discontinued, Routine multivitamin (THERAGRAN) tablet 1 tablet (CANCELED) 09 14 (Given - Provider: Ellen Hernandez RN) 0904 (Given - Provider: Cathy Laurent RN) 0812 (Give n - Provider: Jennifer Lieberman RN) 1 tablet, Oral, DAILY, First dose on Sat07/09/14 at 0900, Until Discontinued, Routine mycophenolate (CELLCEPT) capsule 500 mg 09 (Given - Provider: Ellen Hernandez RN) 09 (Given - Provider: Cathy Laurent RN) 08 (Give n - Provider: Jennifer Lieberman RN) 500 mg, Oral, DAILY, First dose on Sat at 1000, Until Discontinued, Routine traMADol (ULTRAM) tablet 100 mg (CANCELED) 926 (Given - Provider: Ellen Hernandez RN)2051 (Given - Provider: Robles Donovan RN) 09 (Given - Provider: Cathy Laurent RN)2118 (Given - Provider: Robles Donovan RN) 08 (Given - Provider: Jennifer Lieberman RN) 100 mg, Oral, 2 TIMES DAILY, First dose on Sat07/08/14 at 2330, Until Discontinued, Routine documented in this encounter Care Teams Advanced Developer Relationship Specialty Start Date End Date Samantha Baer MD PCP - General 11/07/10 [address] [place] [address] documented as of this encounter
--- OUTSIDE RECORDS SUMMARY | 2022-04-11 10:55 | XMS_ITS | Encounter Summary ---
:1960 Author Organization [facility] [place] [address] Care Team Providers Name Role Phone Jazmine Baer MD Primary Care Provider Encounter Details Date Type Department Care Team Description 06/04/2014 Hospital Encounter Hematology and Jean [place], Myopath y; [place]cology at [facility] Alem Montejo MD Durand's esophagus; [facility] [address] [place], [place] HEMATOLOGY/ONCOLOG [id number] Y DEPT. [phone] [place], [place] [address] Social History Tobacco Use Types [...] MD [facility] DR RHEUMATOLOGY [place], [place] [address] (Wo rk) Scheduled Procedures Name Priority Associated Diagnoses Date/Time EGD, UPPER GI ENDOSCOPY Family hx of colon cance r COLONOSCOPY, DIAGNOSTIC Family hx of colon cance r documented as of this encounter Procedures Procedure Name Priority Date/Time Associated Diagnosis Comme nts LAB SCAN 06/23/2014 12:00 AM EST documented in this encounter Results SCAN DOC: LAB (06/23/2014 12:00 AM EST) Narrative This result has an attachment that is no t available. Scanning Provider MEDIA MGR SCAN EXT ORDR/RSLT documented in this encounter Visit Diagnoses Diagnosis Myopathy Myopathy, unspecified Durand's esophagus Anemia Anemia, unspecified documented in this encounter Care Teams Filler And Trimmer Relationship Specialty Start Date End Date Jazmine Baer MD PCP - General 11/07/10 [address] [place] [address] documented as of this encounter
--- OUTSIDE RECORDS SUMMARY | 2022-04-11 10:55 | XMS_ITS | Encounter Summary ---
:1960 Author Organization [facility] [place] [address] Care Team Providers Name Role Phone Jazmine Baer MD Primary Care Provider Encounter Details Date Type Department Care Team Description 08/17/2014 Orders Only Neurology at [facility] [place] Ruperto Mcclellan MD [facility] [place] [address] NEUROLOGY DEPT [phone] [place], [place] [address] (Wo rk) Social History Tobacco [...] Richi Blackmon MD [facility] RHEUMATOLOGY DEP T [place], [place] [address] (Wo rk) Scheduled Procedures Name Priority Associated Diagnoses Date/Time EGD, UPPER GI ENDOSCOPY Family hx of colon cance r COLONOSCOPY, DIAGNOSTIC Family hx of colon cance r documented as of this encounter Visit Diagnoses Not on filedocumented in this encounter Care Teams Hospice Nurse Practitioner Relationship Specialty Start Date End Date Jazmine Baer MD PCP - General 11/07/10 [address] [place] [address] documented as of this encounter
--- OUTSIDE RECORDS SUMMARY | 2022-04-11 10:55 | XMS_ITS | Encounter Summary ---
:1960 Author Organization [facility] [place] [address] Care Team Providers Name Role Phone Jazmine Baer MD Primary Care Provider Encounter Details Date Type Department Care Team Description 05/07/2014 Orders Only Gastroenterology at [facility] SherifBethanie, Pancreatic cyst [facility] [place] [address] [facility] [phone] [address] [place], [place] [address] Social History Tobacco Use Types [...] Rheumatology Richi Blackmon MD [facility] ER RHEUMATOLOGY [place], [place] [address] (Wo rk) Scheduled Procedures Name Priority Associated Diagnoses Date/Time EGD, UPPER GI ENDOSCOPY Family hx of colon cance r COLONOSCOPY, DIAGNOSTIC Family hx of colon cance r documented as of this encounter Results MRI abdomen with/WO contrast (06/04/2014 4:48 PM EST) Anatomical Region Laterality Modality Abdomen Magnetic Resonance Specimen (Source) Anatomical Collection Method Collection Time Re ceived Time Location / / Volume Laterality 06/04/2014 4:48 PM EST Addenda Addendum by Andrzej Shipley MD on 06/18/2014 8:18 AM EST Addendum Begins CONTRAST: ??11 mL's of Gadavist Addendum Ends Addendum Begins CONTRAST: ??11 mL's of Gadavist Addendum Ends Addendum by TANNER, UNSIGNED REPORT on 02/2015 8:18 AM EST Addendum Begins CONTRAST: ??11 mL's of Gadavist Addendum Ends Addendum Begins CONTRAST: ??11 mL's of Gadavist Addendum Ends Addendum by Andrzej Shipley MD on 06/14/2014 8:57 AM EST Addendum Begins CONTRAST: ??11 mL's of Gadavist Addendum Ends Addendum by TANNER, UNSIGNED REPORT on 05/12 8:42 PM EST Addendum Begins CONTRAST: ??11 mL's of Gadavist Addendum Ends Impressions 06/04/2014 5:13 PM EST IMPRESSION: No interval change. Hepatic hemangioma, and simple cystic foci without enhancing soft tissue component within the body an d detailed pancreas. Narrative 06/04/2014 5:13 PM EST EXAMINATION: MR ABDOMEN W/WO GADO CLINICAL HISTORY: Pancreatic cystic lesi on surveillance Technique: MRI of the abdomen obtained p rior to and following intravenous demonstration of 18 cc of Gadavist contr ast COMPARISON: January 27, 2014 FINDINGS: Unchanged appearance of a solitary, mode rately T2 hyperintense, T1 hypointense 15 mm rounded focus in the right lobe of the liver, which demonstrates discontinues peripheral enhancement foll owing contrast demonstration, compatible with a hemangioma. Unchanged borderline hepatosplenomegaly at 20 and 14 cm respectively. No intra or extra hepatic biliary ductal dilatation. Normal caliber of the pancreatic duct. Unchanged two small cys tic foci within the body of the pancreas, 8 and 5 mm respectively. Normal appearance of the adrenal glands, kidneys and the gallbladder with exception of a number of unchanged scatt ered well-circumscribed T2 hyperintense, T1 hypointense nonenhancing renal cysts. No ascites. No adenopathy. Unremarkable appearance of the included portion of the large and small bowel. No pleural ef fusions. Procedure Note Andrzej Shipley MD / TANNER, UNSIGNED REPORT - 06/18/2014 EXAMINATION: MR ABDOMEN W/WO GADO CLINICAL HISTORY: Pancreatic cystic lesi on surveillance Technique: MRI of the abdomen obtained p rior to and following intravenous demonstration of 18 cc of Gadavist contr ast COMPARISON: January 27, 2014 FINDINGS: Unchanged appearance of a solitary, mode rately T2 hyperintense, T1 hypointense 15 mm rounded focus in the right lobe of the liver, which demonstrates discontinues peripheral enhancement foll owing contrast demonstration, compatible with a hemangioma. Unchanged borderline hepatosplenomegaly at 20 and 14 cm respectively. No intra or extra hepatic biliary ductal dilatation. Normal caliber of the pancreatic duct. Unchanged two small cys tic foci within the body of the pancreas, 8 and 5 mm respectively. Normal appearance of the adrenal glands, kidneys and the gallbladder with exception of a number of unchanged scatt ered well-circumscribed T2 hyperintense, T1 hypointense nonenhancing renal cysts. No ascites. No adenopathy. Unremarkable appearance of the included portion of the large and small bowel. No pleural ef fusions. IMPRESSION IMPRESSION: No interval change. Hepatic hemangioma, and simple cystic foci without enhancing soft tissue component within the body an d detailed pancreas. Brian Brunson MD IMG MRI ORDERABLES documented in this encounter Visit Diagnoses Diagnosis Pancreatic cyst Cyst and pseudocyst of pancreas Pancreatic cyst Cyst and pseudocyst of pancreas documented in this encounter Care Teams Bit Welder Relationship Specialty Start Date End Date Jazmine Baer MD PCP - General 11/07/10 [address] [place] [address] documented as of this encounter
--- OUTSIDE RECORDS SUMMARY | 2022-04-11 10:55 | XMS_ITS | Encounter Summary ---
:1960 Author Organization [facility] [place] [address] Care Team Providers Name Role Phone Jazmine Baer MD Primary Care Provider Reason for Referral Consultation (Routine) - Complete-Ref Provider Notified Specialty Diagnoses / Procedures Referred By Contact Refer red To Contact Telehealth Diagnoses Myopathy Ruperto Mcclellan MD [facility] [place] [address] [place] [address] Referral ID Status Reason Start Expiration Visits Visits Date Date Requested Authorized [id number] Complete-Ref Second 08/02/2014 08/02/2015 1 1 Provider Opinion Notified Encounter Details Date Type Department Care Team Description 08/02/2014 Orders Only Neurology at [facility] [place] Ruperto Mcclellan MD [facility] [place] [address] NEUROLOGY DEPT [phone] [place], [place] [address] (Wo rk) Social History Tobacco [...] [facility] ER DR RHEUMATOLOGY [place], [place] [address] (Wo rk) Scheduled Procedures Name Priority Associated Diagnoses Date/Time EGD, UPPER GI ENDOSCOPY Family hx of colon cance r COLONOSCOPY, DIAGNOSTIC Family hx of colon cance r Scheduled Referrals Name Type Priority Associated Diagnoses Order S chedule eConsult to [facility] Outpatient Referral Routine Myopathy Orde red: Neurology Clinic 08/02/2014 documented as of this encounter Visit Diagnoses Diagnosis Myopathy Myopathy, unspecified documented in this encounter Care Teams Investment Banking Manager Relationship Specialty Start Date End Date Jazmine Baer MD PCP - General 11/07/10 [address] [place] [address] documented as of this encounter
--- OUTSIDE RECORDS SUMMARY | 2022-04-11 10:55 | XMS_ITS | Encounter Summary ---
:1960 Author Organization [facility] [place] [address] Care Team Providers Name Role Phone Jazmine Baer MD Primary Care Provider Reason for Referral Diagnostic Test (Routine) - Closed Specialty Diagnoses / Procedures Referred By Contact Refer red To Contact Radiology Diagnoses Pancreatic lesion Bethanie Gorman, [facility] Rad Mri Procedures MRI Cholangiopancreatography [facility] [address], [place] [id number] Referral ID Status Reason Start Date Expiration Date Visits V isits Requested Authorized [id number] Closed Specialty 05/24/2015 05/23/2016 1 1 Service Requested Encounter Details Date Type Department Care Team Description 06/07/2014 Telephone Gastroenterology at [facility] Bethanie Gorman, [facility] [place] [address] [place] [address] [phone] (Wo rk) Social History Tobacco Use Types [...] this encounter Miscellaneous Notes Telephone Encounter - Bethanie Gorman APRN - 06/07/2014 5:33 PM EST Contacted Mr Acevedo regarding the results of his MRI abdomen: no interval change. Hepatic hemangioma, and simple cystic foci without enhancing soft tissue component within the body and detailed pancreas. Repeat MRI abdomen in 12 months. He is amenable to this. documented in this encounter Plan of Treatment Upcoming Encounters Date Type Specialty Care Team Description 06/19/2022 Office Visit Rheumatology Richi Blackmon MD [facility] ER DR RHEUMATOLOGY [place], [place] [address] (Wo rk) Scheduled Procedures Name Priority Associated Diagnoses Date/Time EGD, UPPER GI ENDOSCOPY Family hx of colon cance r COLONOSCOPY, DIAGNOSTIC Family hx of colon cance r documented as of this encounter Results MRI Cholangiopancreatography (05/30/2015 6:33 PM EST) Anatomical Region Laterality Modality Magnetic Resonance Specimen (Source) Anatomical Location Collection Method / Collectio n Time Received Time / Laterality Volume Impressions 05/31/2015 11:18 AM EST IMPRESSION: 1. 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 2. Subtle micronodular liver contour and borderline splenomegaly. 3. Stable small liver hemangioma. I have personally reviewed the image(s) and the residents interpretation and agree with the findings, Aisha Abdullahi at 1 08/01/2014 11:18 AM Narrative 05/31/2015 11:18 AM EST EXAMINATION: MRI CHOLANGIOPANCREATOGRAPHY CLINICAL HISTORY: Pancreatic cystic lesi on surveillance TECHNIQUE: 3D-MRCP, axial and coronal 2D MRCP, axial T2 fast (turbo) spin-echo with fat saturation, axial 2D T1 weighte d in/out phase. COMPARISON: 06/04/2014, 07/07/2013 FINDINGS: Bile ducts: The common bile duct measure s 4mm. Intrahepatic bile ducts are well visualized and appear normal in caliber. Gallbladder: Normal ? Liver: Stable 16 mm T2 hyperintense lesi on in the inferior aspect of the right hepatic lobe previously characterized as a hemangioma. The liver has a mild micronodular contour. ? Pancreas: There is a stable 8 mm cyst is present in the pancreatic body. On the MRCP images, there is suggestion of a co mmunication with the main duct. A stable 3 mm cystic structure is seen downstream from this other lesion in the body that may represent a prominent side duct or a n additional cystic lesion. Pancreatic duct: Normal caliber and conf igurations Spleen: The spleen is upper limits of no rmal size at 15 cm. Adrenal glands: Normal Kidneys: Cysts are again seen in both dneys. Procedure Note Aisha Abdullahi MD - 05/31/2015 EXAMINATION: MRI CHOLANGIOPANCREATOGRAPH Y CLINICAL HISTORY: Pancreatic cystic lesi on surveillance TECHNIQUE: 3D-MRCP, axial and coronal 2D MRCP, axial T2 fast (turbo) spin-echo with fat saturation, axial 2D T1 weighte d in/out phase. COMPARISON: 06/04/2014, 07/07/2013 FINDINGS: Bile ducts: The common bile duct measure s 4mm. Intrahepatic bile ducts are well visualized and appear normal in caliber. Gallbladder: Normal ? Liver: Stable 16 mm T2 hyperintense lesi on in the inferior aspect of the right hepatic lobe previously characterized as a hemangioma. The liver has a mild micronodular contour. ? Pancreas: There is a stable 8 mm cyst is present in the pancreatic body. On the MRCP images, there is suggestion of a co mmunication with the main duct. A stable 3 mm cystic structure is seen downstream from this other lesion in the body that may represent a prominent side duct or a n additional cystic lesion. Pancreatic duct: Normal caliber and conf igurations Spleen: The spleen is upper limits of no rmal size at 15 cm. Adrenal glands: Normal Kidneys: Cysts are again seen in both dneys. IMPRESSION IMPRESSION: 1. 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 2. Subtle micronodular liver contour and borderline splenomegaly. 3. Stable small liver hemangioma. I have personally reviewed the image(s) and the residents interpretation and agree with the findings, Aisha Abdullahi at 1 08/01/2014 11:18 AM Brian Brunson MD IMG MRI ORDERABLES documented in this encounter Visit Diagnoses Diagnosis Pancreatic lesion Unspecified disease of pancreas Pancreatic lesion Unspecified disease of pancreas documented in this encounter Care Teams Risk Management Professional Relationship Specialty Start Date End Date Jazmine Baer MD PCP - General 11/07/10 [address] [place] [address] documented as of this encounter
--- OUTSIDE RECORDS SUMMARY | 2022-04-11 10:55 | XMS_ITS | Encounter Summary ---
:1960 Author Organization [facility] [place] [address] Care Team Providers Name Role Phone Jazmine Baer MD Primary Care Provider Encounter Details Date Type Department Care Team Description 08/16/2014 Abstract Gastroenterology at [facility] Sujatha Dove, [place] [address] Social History Tobacco Use Types Packs/Day [...] MD [facility] DR RHEUMATOLOGY [place], [place] [address] (Wo rk) Scheduled Procedures Name Priority Associated Diagnoses Date/Time EGD, UPPER GI ENDOSCOPY Family hx of colon cance r COLONOSCOPY, DIAGNOSTIC Family hx of colon cance r documented as of this encounter Visit Diagnoses Not on filedocumented in this encounter Care Teams Electrical And Radio Mechanic Relationship Specialty Start Date End Date Jazmine Baer MD PCP - General 11/07/10 [address] [place] [address] documented as of this encounter
--- OUTSIDE RECORDS SUMMARY | 2022-04-11 10:55 | XMS_ITS | Encounter Summary ---
:1960 Author Organization [facility] [place] [address] Care Team Providers Name Role Phone Jazmine Baer MD Primary Care Provider Encounter Details Date Type Department Care Team Description 06/01/2014 Telephone Gastroenterology at [facility] Joann Giordano, [facility] [place] [address] [address] [facility] [phone] GASTROENTEROLOGY [place], [place] [address] (Wo rk) Social History Tobacco [...] this encounter Miscellaneous Notes Telephone Encounter - Joann Giordano APRN - 06/01/2014 8:24 AM EST I received a call from pt's PCP with concerns about markedly elevated LFT's. 01/27/14 03/17/14 05/14/14 T. Bili 0.3 0.4 0.29 AP 114 113 120 AST 54 116 185 ALT 43 98 246 No new medications or dose changes. As far as Dr. Baer knows, no OTC medications and no EtOH. He is asymptomatic. I have asked that she repeat LFT's locally to ensure that this is not transient. If remain markedly elevated will plan to see pt in follow-up with labs and CT scan the same day. She will have pt get labs locally this week and fax me those results. documented in this encounter Plan of Treatment Upcoming Encounters Date Type Specialty Care Team Description 06/19/2022 Office Visit Rheumatology Richi Blackmon MD [facility] ER DR RHEUMATOLOGY [place], [place] [address] (Wo rk) Scheduled Procedures Name Priority Associated Diagnoses Date/Time EGD, UPPER GI ENDOSCOPY Family hx of colon cance r COLONOSCOPY, DIAGNOSTIC Family hx of colon cance r documented as of this encounter Visit Diagnoses Diagnosis Cirrhosis of liver Cirrhosis of liver without mention of al cohol documented in this encounter Care Teams Attorney General Relationship Specialty Start Date End Date Jazmine Baer MD PCP - General 11/07/10 [address] [place] [address] documented as of this encounter
--- OUTSIDE RECORDS SUMMARY | 2022-04-11 10:55 | XMS_ITS | Encounter Summary ---
:1960 Author Organization [facility] [place] [address] Care Team Providers Name Role Phone Samantha Baer MD Primary Care Provider Reason for Visit Reason Comments Follow-up Encounter Details Date Type Department Care Team Description 08/10/2014 Follow-Up Gastroenterology at [facility], DR PEÑALOZA Liver cirrhosis [facility] Anastasia Harrington MD [facility] [place] [address] [place] [address] Social History Tobacco Use Types Packs/Day [...] Sign Reading Time Taken Comments Blood Pressure 153/64 08/10/2014 11:19 AM EST Pulse 67 08/10/2014 11:19 AM EST Temperature - - Respiratory Rate - - Oxygen Saturation - - Inhaled Oxygen Concentration - - Weight 107.5 kg (237 lb) 08/10/2014 11:19 AM EST Height - - Body Mass Index 36.04 07/29/2014 1:46 PM EST documented in this encounter Progress Notes Anastasia Norman MD - 08/10/2014 11:38 AM EST Gastroenterology and Hepatology Follow Up Note Patient: Bucky Acevedo Gender: Male : 1960 Provider: Anastasia Norman MD Interval History: Mr. Acevedo is here for follow up for HORTON Cirrhosis. Mr. Conte is here with his . Mr. Conte was being cared for by Kajal Giordano APRN, last seen in Feb 2014. In summary, Bucky was diagnosed with HORTON cirrhosis based on presence of metabolic risk factors- T2DM, Hypertension, central adiposity , Class II Obesity and hyperlipidemia. He was noted to have elevated liver enzymes in 2009 when he was diagnosed with myositis. He developed a left subclavian artery thrombus in October 2013 and since has been on Lovenox. To date, mild but transient hepatic encephalopathy, minimal improved with rifaximin. 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 He was hospitalized for a week in Jun 2014. Heis receiving IVIg x 2days every month. He is planned for a muscle biopsy later this month. He deniesjaundice, no overt bleeding, no fluid rentention or leg swelling. He is not sleeping well due to hismyopathy, denies confusion, forgetfulness or problems with concentration. Problem List: 1. Cirrhosis- 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 Metabolic risk factors: HTN, T2DM, Obese, dyslipidemia. No liver biopsy - Complicated with transient HE minimal improvement with RIfaximin (01/2014) 2. Ascites - none to date 3. UGIB - none to date 4. Portal HTN - EGD 07/21/13 no EV 5. Liver Lesion - A. 01/27/14 Stable 1.6 cm hemangioma 2. DM2 3. HTN 4. Hyperlipidemia 5. Class II Obesity 6. Myositis 8. 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 HAV/HBV: (+)/(-)- received last shot of HBV vaccine 2. Colonoscopy - 07/21/13 hyperplastic polyp. Due again 07/2023 3. Portal HTN: EGD 07/21/13 no EV. Due again 07/2016 4. HCC Surveillance: MRI 01/27/14 no liver lesions concerning for HCC (stable hemangioma). AFP 5.1 (01/27/14). US Abdomen- cirrhotic liver, no focal lesions 5. Influenza: 2012 6. Pneumovax: unknown MEDICATIONS: Current Outpatient Prescriptions Medication Sig Dispense Refill ??? mycophenolate (CELLCEPT) [...] daily (with meals).) 10 mL 12 ??? enoxaparin (LOVENOX) 40 [...] 100 mg by mouth 2 times daily. No current facility-administered medications for this visit. ALLERGIES/ADR Allergies Allergen Reactions ??? Methotrexate Hives, Itching and Rash ??? Morphine Itching ??? Smljbko-Ekg-Wzd Reductase Inhibitors Myopathy PHYSICAL EXAMINATION: Filed Vitals: 08/10/14 1119 BP: 153/64 Pulse: 67 Weight: 107.502 kg (237 lb) Body mass index is 36.04 kg/(m^2). GEN: Healthy in appearance, no acute [...] IMAGING: Lab Results Component Value Date WBC 6.7 07/29/2014 RBC 3.89* 07/29/2014 HGB 11.6* 07/29/2014 HCT 34.8* 07/29/2014 MCV 89.5 07/29/2014 MCH 29.8 07/29/2014 MCHC 33.3 07/29/2014 PLATELET 144* 07/29/2014 RDWCV 17.3* 07/29/2014 Lab Results Component Value Date ALT 367* 07/29/2014 AST 361* 07/29/2014 GGT 124* 05/14/2013 ALKPHOS 113 07/29/2014 BILITOT 0.6 07/29/2014 Chemistry Component Value Date/Time NA 138 07/29/2014 1540 K 4.2 07/29/2014 1540 CL 102 07/29/2014 1540 CO2 23 07/29/2014 1540 BUN 31* 07/29/2014 1540 CREATININE 0.94 07/29/2014 1540 Component Value Date/Time CALCIUM 9.4 07/29/2014 1540 ALKPHOS 113 07/29/2014 1540 AST 361* 07/29/2014 1540 ALT 367* 07/29/2014 1540 BILITOT 0.6 07/29/2014 1540 IMPRESSION/PLAN: Mr. Acevedo is a 54M with well compensated HORTON cirrhosis. His current issue is his myoapthy. I see that his liver enzymes have increased and this could be a consequence of underlying. I have asked himto repeat these for me next week when he comes in for an appointment and am going to check his autoimmune markers as well. Normally HORTON cirrhosis does not give a presentation of high transaminases in the 200-300s. I haven't made any changes to his management today. I encourage him to continue to workon tight glycemic control, eat heathly, try incorporate regular exercise and avoid high fructose corn syrup containing foods. I will see him back in 6 months in follow up with an US the same day. He is also going to repeat hisblood work for me in 3 months time. The patient was given my contact information and will call me with concerns or questions 25 minutes of this 30 minute [id number] encounter were spent counseling the patient in HORTON cirrhosis. Anastasia Norman MD Section of Gastroenterology [place] [address] Cc: SAMANTHA BAER MD [address] [place] [phone] documented in this encounter Plan of Treatment Upcoming Encounters Date Type Specialty Care Team Description 06/19/2022 Office Visit Rheumatology Richi Blackmon MD [facility] ER DR RHEUMATOLOGY [place] [address] (Wo rk) Scheduled Orders Name Type Priority Associated Diagnoses Order S chedule CBC (with Diff) Lab Routine Liver cirrhosis Expected: 02/08/2015 secondary to HORTON (Approxima te), Expires: 2014 Comprehensive metabolic Lab Routine Liver cirrhosis E xpected: 02/08/2015 panel (non-fasting) secondary to HORTON (Ap proximate), Expires: 2014 Prothrombin Time Lab Routine Liver cirrhosis Expected : 02/08/2015 secondary to HORTON (Approxima te), Expires: 2014 Scheduled Procedures Name Priority Associated Diagnoses Date/Time EGD, UPPER GI ENDOSCOPY Family hx of colon cance r COLONOSCOPY, DIAGNOSTIC Family hx of colon cance r documented as of this encounter Results US abdomen complete with vascular (02/11/2015 9:48 AM EDT) Anatomical Region Laterality Modality Abdomen Ultrasound Specimen (Source) Anatomical Collection Method Collection Time Re ceived Time Location / / Volume Laterality 02/11/2015 9:48 AM EDT Narrative 02/11/2015 10:07 AM EDT Abdominal Duplex ? (Signed Final 02/11/2015 10:06 am) Patient Info ID #: ? [id number] ? : [birth year] (54 yrs) Name: ? BUCKY ACEVEDO ?Visit Date:02/11/2015 09:45 am Performed By Performed By: ?Ashley Reynolds RDMS Attending: ? Jinny FONSECA, Bucky Prieto Referred By: ? ANASTASIA NORMAN MD Service(s) Provided ??UABDCVASC - Abdominal Complete Survey with Vascular - [id number], [id number] ??[id number], [id number] Indications ??cirrhosis, assess for hepatoma Sep 20 15 ----- Liver ----- Right Lobe Length: ?? [...] Final Report ?? 10:06 am Procedure Note Bucky Stearns MD - 02/11/2015Format ting of this note might be different from the original. Abdominal Duplex (Signed Final 02/12/20 10:06 am) Patient Info ID #: [id number] : [birth year] (54 y rs) Name: BUCKY ACEVEDO Visit Date:02/11 09:45 am Performed By Performed By: Ashley Reynolds RDMS Attending: Bucky Stearns MD Referred By: ANASTASIA NORMAN MD Service(s) Provided UABDCVASC - Abdominal Complete Survey w [facility] Vascular - [id number], [id number], [id number] Indications cirrhosis, assess for hepatoma Feb 2015 [...] Bucky Stearns MD Electronically Signed Final Report 02/11 10:06 am Anastasia Norman MD IMG US GEN ORDERABLES Prothrombin Time (01/14/2015 11:12 AM EDT) P athologist Signature PT 14.3 12.0 - 15.0 CERNER sec MILLENNIUM Comment: Transfusion Committee Guidelines: INR less than 2.0, PTT less than OR equal to 43.5 seconds, or Fibrinogen greater t villanueva or equal to 100 mg/dl indicate adequate procoagulant activity for hemos tasis in patients without underlying bleeding disorders. INR 1.1 0.9 - 1.1 CERNER MILLENNIUM Specimen Anatomical Collection Method Collection Time Receive d Time (Source) Location / / Volume Laterality Blood specimen 01/14/2015 11:12 5 (specimen) AM EDT 11:29 AM EDT Resulting Agency Comment Spec In Lab Anastasia Norman MD HEMATOLOGY ORDERABLES Performing Organization Address City/[facility]/[place] [address] CERNER MILLENNIUM Liver/Kidney Microsome Type 1 Antibody (08/25/2014 11:45 AM EDT) P athologist Signature Stacy/Kid Mirco1 <5.0 <=20.0 CERNER (Negative) MILLENNIUM U Comment: Test Performed by: [place] [address] Project Associate: Yony Blue II, M.D., Ph.D. Specimen Anatomical Collection Method Collection Time Receive d Time (Source) Location / / Volume Laterality Blood specimen 08/25/2014 11:45 5 3:33 (specimen) AM EDT PM EDT Resulting Agency Comment Spec In Lab Anastasia Norman MD IMMUNOLOGY ORDERABLES Performing Organization Address City/[facility]/[place] [address] CERNER MILLENNIUM IgM (08/25/2014 11:45 AM EDT) P athologist Signature IgM 106 40 - 230 CERNER mg/dL MILLENNIUM Specimen Anatomical Collection Method Collection Time Receive d Time (Source) Location / / Volume Laterality Blood specimen 08/25/2014 11:45 5 (specimen) AM EDT 11:54 AM EDT Resulting Agency Comment Spec In Lab Anastasia Norman MD IMMUNOLOGY ORDERABLES Performing Organization Address City/State/[place] [address] CERNER MILLENNIUM (ABNORMAL) IgA (08/25/2014 11:45 AM EDT) athologist Signature IgA 447 (H) 70 - 400 CERNER mg/dL MILLENNIUM Specimen Anatomical Collection Method Collection Time Receive d Time (Source) Location / / Volume Laterality Blood specimen 08/25/2014 11:45 5 (specimen) AM EDT 11:54 AM EDT Resulting Agency Comment Spec In Lab Anastasia Norman MD IMMUNOLOGY ORDERABLES Performing Organization Address City/[facility]/ZIP Code Phon e Number [address] CERNER MILLENNIUM (ABNORMAL) IgG (08/25/2014 11:45 AM EDT) athologist Signature IgG 1,720 (H) 700 - CERNER 1,600 MILLENNIUM mg/dL Specimen Anatomical Collection Method Collection Time Receive d Time (Source) Location / / Volume Laterality Blood specimen 08/25/2014 11:45 5 (specimen) AM EDT 11:54 AM EDT Resulting Agency Comment Spec In Lab Anastasia Norman MD IMMUNOLOGY ORDERABLES Performing Organization Address City/[facility]/ZIP Code Phon e Number [address] CERNER MILLENNIUM Smooth Muscle Antibody (08/25/2014 11:45 AM EDT) athologist Signature Sm Muscle Ab Negative Negative CERNER MILLENNIUM Comment: Test Performed by: [place] [address] Project Associate: Yony Blue II, M.D., Ph.D. Specimen Anatomical Collection Method Collection Time Receive d Time (Source) Location / / Volume Laterality Blood specimen 08/25/2014 11:45 5 3:33 (specimen) AM EDT PM EDT Resulting Agency Comment Spec In Lab Anastasia Norman MD IMMUNOLOGY ORDERABLES Performing Organization Address City/[facility]/[place] [address] [facility]IUM Mitochondrial Antibody, M2 (08/25/2014 11:45 AM EDT) P athologist Signature Mitochon Ab <0.1 <0.1 CERNER (Negative) ADEENNIUM U Comment: Test Performed by: [place] [address] Project Associate: Yony Blue II, M.D., Ph.D. Specimen Anatomical Collection Method Collection Time Receive d Time (Source) Location / / Volume Laterality Blood specimen 08/25/2014 11:45 5 3:33 (specimen) AM EDT PM EDT Resulting Agency Comment Spec In Lab Anastasia Norman MD IMMUNOLOGY ORDERABLES Performing Organization Address City/State/ZIP Code Phon e Number [address] CERKARLY BOOKERENNIUM KIRTI (08/25/2014 11:45 AM EDT) athologist Signature KIRTI Neg Neg CERNER [facility]CRISTÓBAL Specimen Anatomical Collection Method Collection Time Receive d Time (Source) Location / / Volume Laterality Blood specimen 08/25/2014 11:45 5 8:04 (specimen) AM EDT AM EDT Resulting Agency Comment Spec In Lab Anastasia Norman MD IMMUNOLOGY ORDERABLES Performing Organization Address City/[facility]/ZIP [facility] Phon e Number [address] COLLIN WALTER documented in this encounter Visit Diagnoses Diagnosis 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 Other chronic nonalcoholic liver disease 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 Other chronic nonalcoholic liver disease documented in this encounter Care Teams Plate Glass Grinder Relationship Specialty Start Date End Date Samantha Baer MD PCP - General 11/07/10 [address] [place] [address] documented as of this encounter
--- OUTSIDE RECORDS SUMMARY | 2022-04-11 10:55 | XMS_ITS | Encounter Summary ---
:1960 Author Organization [facility] Address [place] [id number] Care Team Providers Name Role Phone Samantha Baer MD Primary Care Provider Reason for Referral Occupational Therapy (Routine) - Closed Specialty Diagnoses / Procedures Referred By Contact Refer red To Contact Occupational Therapy Diagnoses Myopathy Ruperto Mcclellan MD [facility] Hilda Arauz [place] [address] Referral ID Status Reason Start Date Expiration Date Visits V isits Requested Authorized [id number] Closed Evaluate and 07/29/2014 01/25/2015 1 1 Treat hysical Therapy (Routine) - Closed Specialty Diagnoses / Procedures Referred By Contact Refer red To Contact Physical Therapy Diagnoses Myopathy Ruperto Mcclellan MD [facility] Hilda [place] [address] Referral ID Status Reason Start Date Expiration Date Visits V isits Requested Authorized [id number] Closed Evaluate and 07/29/2014 01/25/2015 1 1 Treat Encounter Details Date Type Department Care Team Description 07/29/2014 Office Visit Neurology [place] [facility] Henrry Gleason MD [facility] [place] [address] [facility] Ruperto Ocampo MD [facility] [place] [address] [place] [address] Social History Tobacco Use Types Packs/Day [...] Sign Reading Time Taken Comments Blood Pressure 142/71 07/29/2014 1:46 PM EST Pulse 72 07/29/2014 1:46 PM EST Temperature - - Respiratory Rate - - Oxygen Saturation - - Inhaled Oxygen Concentration - - Weight 109.8 kg (242 lb) 07/29/2014 1:46 PM EST Height 172.7 cm (5' 8) 07/29/2014 1:46 PM EST Body Mass Index 36.8 07/29/2014 1:46 PM EST documented in this encounter Patient Instructions Patient InstructionsRuperto Mcclellan MD - 07/29/2014 2:57 PM EST Increase cellcept as below Week 1 500mg daily Week 2 500mg twice daily Week 3 500mg in morning, 1000mg at night Week 4 1000mg twice daily Muscle biopsy to be done close to IVIG administration date Return to clinic in 1 month documented in this encounter Progress Notes Ruperto Mcclellan MD - 07/29/2014 2:23 PM EST Neurology Clinic Note Patient Name: Bucky Acevedo [...] mellitus type II ??? 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 Used to see Dr. Bucky Marie [...] further work up for [place]opathy -> [place] [address] ?? Muscle Bx @ [facility] Jul 2009 (Dr. Gleason) c/w necrotizing myopathy (cannot rule out inclusion body myositis) ?? Bx reviewed by Dr. Ricardo in [place], consistent with necrotizing myopathy without significant infalmmation [...] Antibody Panel Plus 06/2009 negative (anti-Kiesha, PM/SCL, OK-2, PL-7, PL-12, EJ, OJ KU, U2 SN WILDLIFE ECOLOGY PROFESSOR, SRP) ?? mitochondrial mutations: Absence of all [...] ?? Stopped MTX in summer (seen in [place] for this decision) but stopped seeing Dr. [...] to the time of discharge ?? Plan for repeat muscle Bx, titrate cellcept up to 1000mg BID (schedule given to patient) REFERENCES: Curr Opin Rheumatol. 2010;23(6):612-9. doi: 10.1097/BOR.8s201v46888x032p. Necrotizing autoimmune myopathy. Sherwin Madden, Navya Montejo. Muscle Nerve. 2009;41(2):185-90. doi: 10.1002/mus.27928. Immune-mediated necrotizing myopathy associated with statins. Lewis P1, Dominik HANSEN, Cynthia SA, Keith J, Julissa J, Davion AA. Interval History: Taking cellcept 250mg daily only, did not titrate up since discharge, tolerating well, willing to goup on the dose. Weakness worse, hard to even turn over in bed or sit up, legs really weak, shouldersweak. Definitely weaker than the time of discharge a couple of weeks ago. Denies problem with slurred speech, swallowing or chewing. Past Medical History Diagnosis Date ??? Diabetes ??? Hypertension ??? Hyperlipidemia ??? Gout ??? Obesity ??? Kidney stone ??? 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 Shingles 2009 ??? DM II (diabetes mellitus, type II), controlled ??? Cirrhosis Medications: Medications 07/29/14 1349 Medication Sig Taking? mycophenolate (CELLCEPT) 250 mg Capsule Take 4 capsules by mouth 2 times daily. Follow titration schedule Yes insulin glargine (LANTUS) Solution Inject 25 [...] Itching and Rash ??? Morphine Itching ??? Jgknzep-Zcc-Mhb Reductase Inhibitors Myopathy Review of systems: Constitutional: [...] systems otherwise negative Physical Exam: Filed Vitals: 07/29/14 1346 BP: 142/71 Pulse: 72 Height: 172.7 cm (5' 8) Weight: 109.77 kg (242 lb) Gen: NAD Neck: Supple Neuro Exam: MS: AAOx4, clear language, no dysarthria, follows commands CN: PERRL, EOMI, no facial asymmetry Motor: Normal bulk and tone. UE: 5/5 R 4+/5 L shoulder abduction, 5/5 R 4/5 L elbow flexion, 5/5 BL finger flexion, 5/5 BL wristextension & flexion, 4/5 BL finger abudction LE: 2/4 BL hip flexion 5/5 BL knee flexion & extension, foot dorsi/plantarflexion Sensation: Impaired proprioception and light touch of L toes Reflexes: DTRs diminished throughout Coordination: LAURA and finger tapping smooth & symmetric Gait: waddling gait with a cane, need to use 2 hands on chair arms to get up (difficult) Labs: Recent Results (from the past 24 hour(s)) CK Result Value Ref Range CK, Total 8738 (*) 0 - 200 unit/L BASIC METABOLIC PANEL (NON-FASTING) Result Value Ref Range Glucose Lvl 123 60 - 199 mg/dL BUN 31 (*) 10 - 20 mg/dL Creatinine 0.94 0.80 - 1.50 mg/dL Sodium 138 135 - 145 mmol/L Potassium 4.2 3.5 - 5.0 mmol/L Chloride 102 98 - 107 mmol/L CO2 23 22 - 31 mmol/L Anion Gap 13 5 - 15 mmol/L Calcium 9.4 8.5 - 10.5 mg/dL Estimated GFR >60 >=60 HEPATIC FUNCTION PANEL Result Value Ref Range Total Protein 8.9 (*) 6.4 - 8.3 gm/dL Albumin 3.9 3.2 - 5.2 gm/dL AST 361 (*) 0 - 39 unit/L ALT 367 (*) 0 - 55 unit/L Alk Phos 113 40 - 120 unit/L Total Bilirubin 0.6 0.2 - 1.3 mg/dL Bili, Direct 0.1 0.0 - 0.3 mg/dL HEMOGRAM Result Value Ref Range WBC 6.7 4.0 - 10.0 x10(3)/mcL RBC 3.89 (*) 4.63 - 6.08 x10(6)/mcL Hemoglobin 11.6 (*) 13.7 - 17.5 gm/dL Hematocrit 34.8 (*) 40.0 - 51.0 % MCV 89.5 79.0 - 92.0 fL MCH 29.8 25.6 - 32.2 pg MCHC 33.3 32.0 - 36.5 gm/dL Platelets 144 (*) 145 - 370 x10(3)/mcL RDWSD 56.3 (*) 35.0 - 46.0 fL RDWCV 17.3 (*) 10.9 - 14.4 % MPV 11.4 9.0 - 12.0 fL DIFFERENTIAL, AUTOMATED Result Value Ref Range Neutrophils % 64.0 Neutr Abs (ANC) 4.30 1.50 - 6.30 x10(3)/mcL Lymphocytes % 23.7 Lymphocytes Abs 1.6 1.0 - 3.6 x10(3)/mcL Monocytes % 8.5 Monocyte Abs 0.6 0.2 - 1.0 x10(3)/mcL Eosinophils % 3.1 Eosinophils Abs 0.2 0.0 - 0.5 x10(3)/mcL Basophils % 0.6 Basophils Abs 0.0 0.0 - 0.2 x10(3)/mcL Immature Gran % 0.10 Tamara Gran Abs 0.01 0.00 - 0.05 x10(3)/mcL Diagnostic Tests and Imaging: No new imaging studies Assessment / Plan: Bucky Acevedo is a 54 y.o. 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 He developed weakness off IVIG last month and received 5 days of IVIG and started on cellcept (low dose). Unfortunately weakness has been progressive and worsening since the hospitalization. CK still very elevated. -muscle biopsy right before one of his IVIG date -titrate up cellcept to 1000mg BID (schedule given to him on AVS) -PT/OT (external referral) -IVIG 1g/kg per month, split over 2 consecutive days -lovenox 40mg SC daily on the day before, days of, and the day after IVIG (4days per month) for DVT PPx -RTC in [address] Rosibel Mcclellan MD Neurology Resident, PGY4 Pager [phone] Neurology Staff Note I have reviewed the above resident's history during the visit and I agree with the details as written. My physical examination confirms the resident's findings. The assessment and plan were formulated in discussion with me at the time of the visit and I agree with them as documented. Henrry Gleason documented in this encounter Plan of Treatment Upcoming Encounters Date Type Specialty Care Team Description 06/19/2022 Office Visit Rheumatology Richi Blackmon MD [facility] [address] RHEUMATOLOGY [place], [place] [address] (Wo rk) Scheduled Procedures Name Priority Associated Diagnoses Date/Time EGD, UPPER GI ENDOSCOPY Family hx of colon cance r COLONOSCOPY, DIAGNOSTIC Family hx of colon cance r Scheduled Referrals Name Type Priority Associated Order Schedule Diagnoses Referral to Physical Outpatient Referral Routine Myopathy Ordered: Therapy 07/29/2014 Referral to Outpatient Referral Routine Myopathy Ordered: Occupational Therapy 015 documented as of this encounter Procedures Procedure Name Priority Date/Time Associated Diagnosis Comme nts [facility] SENDOUT Routine 07/29/2014 3:40 PM Results f or this EST procedure are i n the results section. HEMOGRAM Routine 07/29/2014 3:40 PM Myopathy Results f or this EST procedure are i n the results section. DIFFERENTIAL, Routine 07/29/2014 3:40 PM Myopathy Results for this AUTOMATED EST procedure are i n the results section. CBC (WITH DIFF) Routine 07/29/2014 3:40 PM Myopathy EST CK Routine 07/29/2014 3:40 PM Myopathy Results f or this EST procedure are i n the results section. BASIC METABOLIC Routine 07/29/2014 3:40 PM Myopathy Result s for this PANEL (NON-FASTING) EST procedur e are in the results section. documented in this encounter Results [facility] Sendout (07/29/2014 3:40 PM EST) P athologist Signature [facility] Sendout See Note COLLIN GALICIAIUM Comment: The ordered test is: ??Anti-HMGCR Ab Performed by: RDL ? [id number] ?[place] The test result is: Please see scanned r eport in Chart Review under the Non-DH Laboratory Heading. Specimen Anatomical Collection Method Collection Time Receive d Time (Source) Location / / Volume Laterality Specimen of Other / Unknown 07/29/2014 3:40 PM 2014 unknown material EST 11:21 AM ES T (specimen) Narrative This result has an attachment that is no t available. Henrry Gleason MD CHEMISTRY ORDERABLES Performing Organization Address City/State/ZIP Code Phon e Number [place] [phone] CERNER MILLENNIUM Differential, Automated (07/29/2014 3:40 PM EST) P athologist Signature Neutrophils % 64.0 % CERNER MILLENNIUM Neutr Abs (ANC) 4.30 1.50 - CERNER 6.30 MILLENNIUM x10(3)/mcL Lymphocytes % 23.7 % CERNER MILLENNIUM Lymphocytes Abs 1.6 1.0 - 3.6 CERNER x10(3)/mcL MILLENNIUM Monocytes % 8.5 % CERNER MILLENNIUM Monocyte Abs 0.6 0.2 - 1.0 CERNER x10(3)/mcL MILLENNIUM Eosinophils % 3.1 % CERNER MILLENNIUM Eosinophils Abs 0.2 0.0 [...] EST Resulting Agency Comment Spec In Lab Henrry Gleason MD HEMATOLOGY ORDERABLES Performing Organization Address City/[facility] [address]/[place] [address] CERNER MILLENNIUM (ABNORMAL) Hemogram (07/29/2014 3:40 PM EST) P athologist Signature WBC 6.7 4.0 - 10.0 CERNER x10(3)/mcL MILLENNIUM RBC 3.89 (L) 4.63 - CERNER 6.08 MILLENNIUM x10(6)/mcL Hemoglobin 11.6 (L) 13.7 - CERNER 17.5 gm/dL MILLENNIUM Hematocrit 34.8 (L) 40.0 - CERNER 51.0 % MILLENNIUM MCV 89.5 79.0 - CERNER 92.0 fL MILLENNIUM MCH 29.8 25.6 - CERNER 32.2 pg MILLENNIUM MCHC 33.3 32.0 - CERNER 36.5 gm/dL MILLENNIUM Platelets 144 (L) 145 - 370 CERNER x10(3)/mcL MILLENNIUM RDWSD 56.3 (H) 35.0 - CERNER 46.0 fL MILLENNIUM RDWCV 17.3 (H) 10.9 - CERNER 14.4 % MILLENNIUM MPV 11.4 9.0 - 12.0 CERNER fL MILLENNIUM Specimen Anatomical Collection Method Collection Time Receive d Time (Source) Location / / Volume Laterality Blood specimen 07/29/2014 3:40 PM 015 4:01 (specimen) EST PM EST Resulting Agency Comment Spec In Lab Henrry Gleason MD HEMATOLOGY ORDERABLES Performing Organization Address City/[facility] [address]/ZIP Code Phon e Number [address] CERNER MILLENNIUM (ABNORMAL) Basic Metabolic Panel (non-fasting) (07/29/2014 3:40 PM EST) P athologist Signature Glucose Lvl 123 60 - 199 CERNER mg/dL MILLENNIUM Comment: Diabetes: >=200 mg/dL plus symp toms BUN 31 (H) 10 - 20 mg/dL CERNER MILLENNIU M Creatinine 0.94 0.80 - 1.50 mg/dL CERNER MILL ENNIUM Comment: Please note that the pediatric reference intervals supplied above were not validated at [facility]. Results from pediatri c patients should be interpreted in conjunction to the patient's age, height and muscle mass. Sodium 138 135 - 145 mmol/L CERNER ELISE NIUM Potassium 4.2 3.5 - 5.0 mmol/L CERNER ELISE NIUM Comment: Please note: ??Patients with WBC >100,00 0 may have falsely elevated Potassium levels. ??For accurate Potassium quantif ication in these patients send serum separator tube (gold top) for subsequent determinations. ??Contact the Clinical Chemistry Laboratory if there are any qu estions. Chloride 102 98 - 107 mmol/L CERNER MILLENN IUM [...] the following links into your internet browser. [email or web address] Specimen Anatomical Collection Method Collection Time Receive d Time (Source) Location / / Volume Laterality Blood specimen 07/29/2014 3:40 PM 015 4:01 (specimen) EST PM EST Resulting Agency Comment Spec In Lab Henrry Gleason MD CHEMISTRY ORDERABLES Performing Organization Address City/State/[place] [address] CERNER MILLENNIUM (ABNORMAL) CK (07/29/2014 3:40 PM EST) athologist Signature CK, Total 8,738 (H) 0 - 200 CERNER unit/L MILLENNIUM Comment: result rechecked-afp Specimen Anatomical Collection Method Collection Time Receive d Time (Source) Location / / Volume Laterality Blood specimen 07/29/2014 3:40 PM 015 4:01 (specimen) EST PM EST Resulting Agency Comment Spec In Lab Henrry Gleason MD CHEMISTRY ORDERABLES Performing Organization Address City/State/[place] [address] [facility] documented in this encounter Visit Diagnoses Diagnosis Myopathy Myopathy, unspecified documented in this encounter Care Teams Manager Of Applications Development Relationship Specialty Start Date End Date Samantha Baer MD PCP - General 11/07/10 [address] [place] [address] documented as of this encounter
--- OUTSIDE RECORDS SUMMARY | 2022-04-11 10:56 | XMS_ITS | Encounter Summary ---
:1960 Author Organization [facility] [place] [address] Care Team Providers Name Role Phone Jazmine Baer MD Primary Care Provider Reason for Visit Reason Comments Other Liver Tumor Board Conference Encounter Details Date Type Department Care Team Description 07/21/2013 Multidisciplinary Care Gastroenterology at [facility] Liver lesion Committee [facility] Melanie RN (Primary Dx) [place] [address] Social History Tobacco Use Types Packs/Day Years Used Date Never Smoker Smokeless Tobacco: Never Used Alcohol Use Standard Drinks/Week Comments Yes 0 (1 standard drink = 0.6 oz pure Occasi onal, 1 beer once or twice a alcohol) year; no hx of heavy ETOH Alcohol Habits Answer Date Recorded How often do you have a drink Not asked containing alcohol? How many drinks containing alcohol do Not asked you have on a typical day when you are drinking? How often do you have six or more Not asked drinks on one occasion? Comment: Occasional, 1 beer once or twice 014 a year; no hx of heavy ETOH Sex Assigned at Date Recorded Not on file documented as of this encounter Plan of Treatment Upcoming Encounters Date Type Specialty Care Team Description 06/19/2022 Office Visit Rheumatology Richi Blackmon MD [facility] DR RHEUMATOLOGY [place], [place] [address] (Wo rk) Scheduled Orders Name Type Priority Associated Diagnoses Order S chedule AFP tumor marker Lab Routine Liver lesion Expected: 0 10/12/2013 (Approximate), Expires: 2014 Comprehensive metabolic Lab Routine Liver lesion Expe cted: 10/12/2013 panel (non-fasting) (Approxi mate), Expires: 2014 Prothrombin Time Lab Routine Liver lesion Expected: 0 10/12/2013 (Approximate), Expires: 2014 Scheduled Procedures Name Priority Associated Diagnoses Date/Time EGD, UPPER GI ENDOSCOPY Family hx of colon cance r COLONOSCOPY, DIAGNOSTIC Family hx of colon cance r documented as of this encounter Visit Diagnoses Diagnosis Liver lesion - Primary Other specified disorders of liver documented in this encounter Care Teams Quality Control Analyst Relationship Specialty Start Date End Date Jazmine Baer MD PCP - General 11/07/10 [address] [place] [address] documented as of this encounter
--- OUTSIDE RECORDS SUMMARY | 2022-04-11 10:56 | XMS_ITS | Encounter Summary ---
:1960 Author Organization [facility] [place] [address] Care Team Providers Name Role Phone Jazmine Baer MD Primary Care Provider Reason for Visit Reason Comments Follow-up Encounter Details Date Type Department Care Team Description 07/07/2013 Follow-Up Gastroenterology at [facility], DR PEÑALOZA Cirrhosis of liver; [facility] Joann Olivo, TOOL PUSHER [facility] [place] [address] [place] [address] Social History Tobacco Use Types Packs/Day [...] Sign Reading Time Taken Comments Blood Pressure 104/60 07/07/2013 1:44 PM EST Pulse 58 07/07/2013 1:44 PM EST Temperature - - Respiratory Rate - - Oxygen Saturation - - Inhaled Oxygen Concentration - - Weight 113.4 kg (250 lb) 07/07/2013 1:44 PM EST Height 170.2 cm (5' 7) 07/07/2013 1:44 PM EST Body Mass Index 39.16 07/07/2013 1:44 PM EST documented in this encounter Progress Notes Giuliana Joann Melanie, SAM - 07/07/2013 2:09 PM EST Subjective: Patient ID: Bucky Acevedo is a 53 y.o. male. HPI Problem List: 1. Cirrhosis A. Labs - see below B. Imaging - see below C. Liver Biopsy - none to date D. Complications 1. Hepatic Encephalopathy A. Possible mild HE with altered sleep patterns B. 07/07/13 Rx Rifaximin 550 mg BID 2. Ascites - none to date 3. UGIB - none to date 4. Portal HTN - EGD Pending 5. Liver Lesion - none to date 2. DM2 3. HTN 4. Hyperlipidemia 5. Class II Obesity 6. Myositis Preventative Health: 1. HAV/HBV: (pending)/(-) 2. Colonoscopy - pending 3. Portal HTN: EGD pending 4. HCC Surveillance: Ultrasound 05/27/13 no liver lesions. AFP pending (07/07/13) 5. Influenza: received through PCP 2012 6. Pneumovax: ? Initial Consult 07/07/13: Mr. Acevedo is a very pleasant 53 year old white male seen today at [facility] in consultation for concerns about cirrhosis at the request of my colleague Bethanie Gorman APRN. He has never been told that he had liver disease. He had markedly elevated LFT's in 2009 when he was first diagnosedwith myositis. To his knowledge, he has had thrombocytopenia for only a few months. He has no risk factors for viral hepatitis and viral serology was negative in 2009. He has no risk factors for alcohol liver disease. He drinks one beer once or twice a year and no history of heavy alcohol use. He does have risk factors for HORTON: Class II Obesity, DM2, HTN and hyperlipidemia. He tells me that he has been experiencing nosebleeds x 6 months although these are improving slightly as he was getting them every other day. He denies fever, chills, sweats, abdominal distention, melena, hematochezia, hematemesis, confusion. His sleep patterns are now reversed, awake all night and sleeps all day. Abdominal Ultrasound 05/27/13: Impression Ultrasound - Abdomen Complete - Summary 1. UNEXPECTED FINDING: Limited sonographic evaluation of the liver due to limited sonographic penetration. That said, there is an indeterminate slightly hyperechoic subcapsular 1.7 cm lesion as described above, possibly representing a hemangioma, though definitive characterization by ultrasound is not possible. Suggest CT or MRI for further evaluation. 2. Mild hepatosplenomegaly. 3. Cholelithiasis and small amount of gravel/sludge. No evidence of acute cholecystitis. 4. Inadequate visualization of the pancreas. Past Medical History Diagnosis Date ??? Diabetes ??? Hypertension ??? Hyperlipidemia ??? Gout ??? Obesity ??? Kidney stone ??? 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 Shingles 2009 ??? DM II (diabetes mellitus, type II), controlled ??? Cirrhosis Past Surgical History Procedure Date ??? Umbilical hernia repair ??? Ureter stent placement renal stent ??? Tunneled venous port placement Jun 2012 ??? Tunneled venous port placement ??? Bone marrow aspiration w/bx through same incision/site 05/28/2013 ([facility]) BONE MARROW ASP PERFORMED W/BX THRU BX INCISION performed by Alem Evangelista MD at [facility] ??? Bone marrow bx, needle/trocar 05/28/2013 ([facility]) BONE MARROW,BIOPSY performed by Alem Evangelista MD at [facility] ??? Muscle biopsy 2008 ??? Lithotripsy ??? Tunneled venous port placement 2011 omeprazole (PRILOSEC) 40 mg capsule; ondansetron (ZOFRAN) 4 mg tablet; trimethobenzamide (TIGAN) 300mg capsule; INSULIN LISPRO (HUMALOG SUBQ); insulin glargine (LANTUS) 100 unit/mL vial injection; lisinopril-hydrochlorothiazide (PRINZIDE;ZESTORETIC) 20-12.5 mg per tablet; metFORMIN (GLUCOPHAGE) 500 mg tablet; atenolol (TENORMIN) 100 mg tablet; immune globulin,hum,,capr,IGG, (GAMUNEX) 10 % Inj infusion; folic acid (FOLVITE) 1 mg tablet traMADol (ULTRAM) 50 mg tablet; [DISCONTINUED] aspirin 81 mg tablet No current facility-administered medications for this visit. gadobutrol (GADAVIST) 10 mmol/10 mL (1 mmol/mL) injection 11.34 mL Allergies Allergen Reactions ??? Cquzylw-Kxy-Jwo Reductase Inhibitors Myopathy Family Status Relation Status Age ??? Mother 59 DM2, colorectal cancer, obesity ??? Father 60 [place], HTN, hyperlipidemia ??? Sister Alive age 56, DM2, obesity ??? Son Alive age 33, healthy ??? Son Alive age 30, healthy ??? Son Alive age 27, seizure disorder (tuberous sclerosis) ??? Son Alive age 24, healthy ??? Maternal Grandmother 50s unknown ??? Maternal Grandfather 87 unknown ??? Paternal Grandmother 50s unknown ??? Paternal Grandfather 74 unknown Family History Problem Relation Age of Onset ??? Colorectal Cancer Mother 59 ??? Diabetes Mother ??? Myocardial Infarction Father first [place] at 36 ??? Coronary Artery Disease Father ??? Stomach Cancer uncle ??? Obesity Mother ??? Hypertension Father ??? Hyperlipidemia Father ??? Type 2 Diabetes Paternal Uncle ??? Obesity Sister ??? Type 2 Diabetes Sister History Social History ??? Marital Status: Spouse Name: N/A Number of Children: 4 ??? Years of Education: N/A Occupational History ??? Not on file. Social History Main Topics ??? Smoking status: Never Smoker ??? Smokeless tobacco: Never Used ??? Alcohol Use: 0.0 oz/week Comment: Occasional, 1 beer once or twice a year; no hx of heavy ETOH ??? Drug Use: No ??? Sexually Active: Not on file Comment: Deferred Other Topics Concern ??? Blood Transfusions No ??? Service No Social History Narrative Lives with of 35 years. Feels safe at home.Disabled since 2009. 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 Review of Systems Constitutional: Positive for fatigue (significant fatigue). Negative for fever, chills, diaphoresis and unexpected weight change. Normal adult weight 240-255 lbs. HENT: Positive for nosebleeds (once or twice weekly x 6 months. ). Negative for trouble swallowing. Respiratory: Negative for cough, shortness of breath and wheezing. Cardiovascular: Positive for chest pain (experienced 2 episodes of chest pain near port. PCP is planning on obtaining stress test) and leg swelling (with prolonged standing). Negative for palpitations. Gastrointestinal: Negative for nausea (Nausea improved with Tigan and zofran), vomiting (Improved. Last episode > 1 month. No hx hematemesis), abdominal pain, diarrhea, constipation, blood in stool,abdominal distention and anal bleeding. Heartburn well-controlled with omeprazole 40 mg once daily. BM once daily. Occ sensation of incomplete evacuation Genitourinary: Negative for hematuria. Musculoskeletal: Positive for back pain (chronic mid back pain since 2008). Negative for arthralgias. Skin: Positive for rash (will develop blisters occasionally (diffusely)). Negative for color change (No h/o icteric illness). Diffuse pruritus which bothers him at night Neurological: Positive for weakness (s/p myopathy) and light-headedness (with standing quickly). Negative for dizziness, tremors and syncope. Is off balance and will fall occasionally. Last episode of falling x 6 months Hematological: Bruises/bleeds easily (x 6-12 months). Psychiatric/Behavioral: Positive for sleep disturbance (awake all night, then sleeps all day x 1 year) and dysphoric mood (depression r/t current health). Negative for suicidal ideas and confusion. Objective: Physical Exam Constitutional: He is oriented to person, place, and time. He appears well- developed and well-nourished. Body mass index is 39.16 kg/(m^2). HENT: Head: Normocephalic and atraumatic. edentulous Eyes: Pupils are equal, round, and reactive to light. No scleral icterus. Neck: Normal range of motion. Neck supple. No thyromegaly present. Cardiovascular: Normal rate and regular rhythm. Murmur (grade 2/6 systolic murmur heard best LUSB) heard. Pulmonary/Chest: Effort normal and breath sounds normal. He has no wheezes. He has no rales. Abdominal: Soft. Bowel sounds are normal. He exhibits no distension and no mass. There is no tenderness. There is no guarding. +HSM Exam limited due to body habitus Able to palpate umbilical hernia mesh Musculoskeletal: He exhibits no edema. Lymphadenopathy: He has no cervical adenopathy. Neurological: He is alert and oriented to person, place, and time. No asterixis Skin: Skin is warm and dry. There is erythema (mild palmar erythema. spider angiomata on chest). Psychiatric: He has a normal mood and affect. His behavior is normal. Assessment and Plan: Mr. Acevedo is a very pleasant 53 year old white male seen today in consultation for concerns about cirrhosis. 1. Cirrhosis, likely HORTON. Will obtain labs today to evaluate for other potential causes of cirrhosis, as well as calculate MELD score. He will require bi-annual HCC surveillance with labs and imaging.Today's MRI is still pending at the time of his visit. 2. Portal HTN. He is scheduled for EGD 07/29/13 to evaluate for signs portal hypertension and esophageal varices. 3. Hepatic encephalopathy, mild. He has been experiencing alter sleep patterns x 1 year. This may represent HE. Trial Rifaximin 550 mg BID. 4. Thrombocytopenia. This is likely due to portal hypertension and splenomegaly. 5. HAV/HBV. He is not immune to HBV. Will obtain HAV titer today. He will require vaccine series (40mcg dose HBV due to cirrhosis). 6. Influenza vaccine. Strongly advise that he obtain this annually. He tells me he received this in the fall. 7. Pneumovax. Strongly advise that he get this vaccine q 5 years. He is not sure if he has already had this. 8. Colonoscopy. He is scheduled 07/29/13. All of his questions were answered at the conclusion of the visit. He verbalized understanding to the agreement to the plan of care. -MRI pending. Will call him with these results -Labs today -EGD/Colonoscopy 07/29/13 -F/U appt with me when returns to see Bethanie Gorman APRN documented in this encounter Plan of Treatment Upcoming Encounters Date Type Specialty Care Team Description 06/19/2022 Office Visit Rheumatology Richi Blackmon MD [facility]HE[facility] [place], [place] [address] ( rk) Scheduled Procedures Name Priority Associated Diagnoses Date/Time EGD, UPPER GI ENDOSCOPY Family hx of colon cance r COLONOSCOPY, DIAGNOSTIC Family hx of colon cance r documented as of this encounter Procedures Procedure Name Priority Date/Time Associated Comments Diagnosis .A1AT GENOTYPE Routine 07/07/2013 3:30 PM Cirrhosis of liver Results for this EST Diabetes mellitus procedure are in the results section. A1AT GENOTYPE PROFILE Routine 07/07/2013 3:30 PM Cirrhos is of liver EST Diabetes mellitus DIFFERENTIAL, Routine 07/07/2013 3:30 PM Results for this AUTOMATED EST procedure are i n the results section. IRON AND TIBC Routine 07/07/2013 3:30 PM Cirrhosis of liver Results for this EST Diabetes mellitus procedure are in the results section. [id number] Routine 07/07/2013 3:30 PM Cirrhosis of liver Results for this EST Diabetes mellitus procedure are in the results section. HEPATITIS A ANTIBODY, Routine 07/07/2013 3:30 PM Cirrhos is of liver Results for this TOTAL EST Diabetes mellitus procedure are in the results section. MITOCHONDRIAL Routine 07/07/2013 3:30 PM Cirrhosis of liver Results for this ANTIBODY, M2 EST Diabetes mellitus procedure are in the results section. CERULOPLASMIN Routine 07/07/2013 3:30 PM Cirrhosis of liver Results for this EST Diabetes mellitus procedure are in the results section. ZINC Routine 07/07/2013 3:30 PM Cirrhosis of liver Results for this EST Diabetes mellitus procedure are in the results section. AFP TUMOR MARKER Routine 07/07/2013 3:30 PM Cirrhosis of liver Results for this EST Diabetes mellitus procedure are in the results section. SMOOTH MUSCLE ANTIBODY Routine 07/07/2013 3:30 PM Cirrho sis of liver Results for this EST Diabetes mellitus procedure are in the results section. PROTHROMBIN TIME Routine 07/07/2013 3:30 PM Cirrhosis of liver Results for this EST Diabetes mellitus procedure are in the results section. CBC (WITH DIFF) Routine 07/07/2013 3:30 PM Cirrhosis of liver Results for this EST Diabetes mellitus procedure are in the results section. KIRTI ANTIBODY SCREEN Routine 07/07/2013 3:30 PM Cirrhosis of liver Results for this EST Diabetes mellitus procedure are in the results section. TSH Routine 07/07/2013 3:30 PM Cirrhosis of liver Results for this EST Diabetes mellitus procedure are in the results section. HEMOGLOBIN A1C Routine 07/07/2013 3:30 PM Cirrhosis of liver Results for this EST Diabetes mellitus procedure are in the results section. IGA Routine 07/07/2013 3:30 PM Cirrhosis of liver Results for this EST Diabetes mellitus procedure are in the results section. IGM Routine 07/07/2013 3:30 PM Cirrhosis of liver Results for this EST Diabetes mellitus procedure are in the results section. IGG Routine 07/07/2013 3:30 PM Cirrhosis of liver Results for this EST Diabetes mellitus procedure are in the results section. FERRITIN Routine 07/07/2013 3:30 PM Cirrhosis of liver Results for this EST Diabetes mellitus procedure are in the results section. COMPREHENSIVE Routine 07/07/2013 3:30 PM Cirrhosis of liver Results for this METABOLIC PANEL EST Diabetes mellitus procedu re are in (NON-FASTING) the results section. documented in this encounter Results Differential, Automated (07/07/2013 3:30 PM EST) P athologist Signature Neutrophils % 61.5 34.0 - CERNER 71.0 % MILLENNIUM Neutr Abs (ANC) 2.28 1.50 - CERNER 6.30 MILLENNIUM x10(3)/mcL Lymphocytes % 27.2 19.0 - CERNER 53.0 % MILLENNIUM Lymphocytes Abs 1.0 1.0 - 3.6 CERNER x10(3)/mcL MILLENNIUM Monocytes % 7.3 4.0 - 13.0 CERNER % MILLENNIUM Monocyte Abs 0.3 0.2 - 1.0 CERNER x10(3)/mcL MILLENNIUM Eosinophils % 3.5 0.0 - 7.0 CERNER % MILLENNIUM Eosinophils Abs 0.1 0.0 - 0.5 CERNER x10(3)/mcL MILLENNIUM Basophils % 0.5 0.0 - 2.0 CERNER % MILLENNIUM Basophils Abs 0.0 0.0 - 0.2 CERNER x10(3)/mcL MILLENNIUM Immature Gran % 0.00 0.00 - CERNER 0.66 % MILLENNIUM Comment: Immature granulocytes(IG's)percentage an d absolute count will include metamyelocytes, myelocytes, and promyelo cytes. Blood smears from CBCs yielding IG's will be scanned manually for concor dance. If this scan disagrees with the automated IG or if promyelocytes are not ed, a manual differential will be performed. Tamara Gran Abs 0.00 0.00 - 0.05 x10(3)/mcL CER NER [facility] Specimen Anatomical Collection Method Collection Time Receive d Time (Source) Location / / Volume Laterality Blood specimen 07/07/2013 3:30 PM 014 3:41 (specimen) EST PM EST Fermín Palacios MD HEMATOLOGY ORDERABLES Performing Organization Address City/State/[place] [address] COLLIN [facility] .A1AT Genotype (07/07/2013 3:30 PM EST) Component Value Ref Test Analysis Performed At [facility] Range Method Time Signature A1AT A1AT (SERPINA1) GENOTYPING RESULTS: COLLIN Genotype S ALLELE: NOT DETECTED ELISE SEGAL Z ALLELE: NOT DETECTED INTERPRETATION: The absence of both the S and Z alleles in this patient along with a separate test showing normal levels of A1 AT protein (176mg/dL) in this patient? s serum suggest this patient does not have an A1AT deficiency. Although the S and Z alleles were not detected by this test, the presence of other less common A1AT variants cannot be exclud ed. ??These results should be interpreted based on the complete clinical presentation whic h may warrant additional testing and/or a genetic consultation. METHOD: Two regions of interest in the serpin peptidase inhi bitor, clade A (alpha-1 antiproteinase, antitrypsin), member 1 gene (SERPIN A1), commonly alpha-1 anti-trypsin or A1AT) that are known to contain vari ant alleles resulting in the ? S? phenotype ([id number]; [id number]) and the ? Z? phenotype (c. 1096G>A; [id number]) are a mplified and genotyped by two separate PCR assays each containing two primers for amplification a nd two probes for detection the normal and que iant alleles. ??Genomic DNA used in this testing was isolated from peripheral blood. LIMITATIONS AND DISCLAIMERS: ??Although unlikely, rare variants or polymorphisms (known or unknown) have the potential to interfere with the performance of this test, producing false negative or false positive results. ??When genotyping results are not consistent with other clinical observa tions or test results, additional testing should be considered. This test was developed and its performance maury acteristics determined by the Molecular Pathology Laborato ry at [facility]. This test is used for clinical purposes and should not be considered as investig ational or for research purposes. ??It has not been cleared or approved by the U.S. Food and Drug A dministration. However, as a CLIA licensed laboratory, our facility is appr karena for such high-complexity clinical testing. Comment: [VERIFIED DATE]07.17.13 Verified By:Joselito FONSECA, Ada Echeverria Pathologist (Electronic Signature) Specimen Anatomical Collection Method Collection Time Receive d Time (Source) Location / / Volume Laterality Blood specimen 07/07/2013 3:30 PM 014 8:18 (specimen) EST AM EST Resulting Agency Comment Spec In Lab Fermín Palacios MD CHEMISTRY ORDERABLES Performing Organization Address City/[facility]/ZIP [facility] Phon e Number [address] CERNER MILLENNIUM (ABNORMAL) AFP tumor marker (07/07/2013 3:30 PM EST) P athologist Signature AFP 22.9 (H) <=8.3 ng/mL CERNER MILLENNIUM Specimen Anatomical Collection Method Collection Time Receive d Time (Source) Location / / Volume Laterality Blood specimen 07/07/2013 3:30 PM 014 3:41 (specimen) EST PM EST Resulting Agency Comment Spec In Lab Fermín Palacios MD CHEMISTRY ORDERABLES Performing Organization Address [facility] [place] [address] CERNER MILLENNIUM (ABNORMAL) Prothrombin Time (07/07/2013 3:30 PM EST) P athologist Signature PT 16.2 (H) 12.0 - 15.0 CERNER sec MILLENNIUM Comment: [facility] Transfusion Committee Guidelines: I NR less than 2.0, PTT less than OR equal to 43.5 seconds, or Fibrinogen gre ater than or equal to 100 mg/dl indicate adequate procoagulant activity for hemostasis in patients without underlying bleeding disorders. INR 1.3 (H) 0.9 - 1.1 CERNER MILLENNIUM Specimen Anatomical Collection Method Collection Time Receive d Time (Source) Location / / Volume Laterality Blood specimen 07/07/2013 3:30 PM 014 3:41 (specimen) EST PM EST Resulting Agency Comment Spec In Lab Fermín Palacios MD HEMATOLOGY ORDERABLES Performing Organization Address City/State/ZIP Code Phon e Number [place] [phone] CERNER MILLENNIUM (ABNORMAL) Comprehensive metabolic panel (non-fasting) (07/07/2013 3:30 PM EST) P athologist Signature Glucose Lvl 557 60 - 199 CERNER (Critical) mg/dL MILLENNIUM Comment: Result rechecked. Called by: flor, Read back by: dr glenn mondragon, Date/Time:07/07/13 17:12. Diabetes: >=200 mg/dL plus symptoms BUN 37 (H) 10 - 20 mg/dL CERNER MILLENNIU M Creatinine 2.40 (H) 0.80 - 1.50 mg/dL CERNER MILL ENNIUM Comment: Please note that the pediatric reference intervals supplied above were not validated at [facility]. Results from pediatri c patients should be interpreted in conjunction to the patient's age, height and muscle mass. Sodium 131 (L) 135 - 145 mmol/L CERNER ELISE NIUM Potassium 4.8 3.5 - 5.0 mmol/L CERNER ELISE NIUM Comment: Please note: ??Patients with WBC >100,00 0 may have falsely elevated Potassium levels. ??For accurate Potassium quantif ication in these patients send serum separator tube (gold top) for subsequent determinations. ??Contact the Clinical Chemistry Laboratory if there are any qu estions. Chloride 95 (L) 98 - 107 mmol/L CERNER MILLENN IUM CO2 23 22 - 31 mmol/L CERNER MILLENNI UM Anion Gap 13 5 - 15 mmol/L CERNER MILLENNIU M Calcium 8.6 8.5 - 10.5 mg/dL CERNER ELISE NIUM Total Protein 7.0 6.4 - 8.3 gm/dL CERNER MIL LENNIUM Albumin 3.0 (L) 3.2 - 5.2 gm/dL CERNER MILLENN IUM AST 37 0 - 39 unit/L CERNER MILLENNIU M ALT 28 0 - 55 unit/L CERNER MILLENNIU M Alk Phos 113 40 - 120 unit/L CERNER MILLENN IUM Total Bilirubin 0.5 0.2 - 1.3 mg/dL CERNER M ILLENNIUM Bili, Direct 0.2 0.0 - 0.3 mg/dL CERNER MILL ENNIUM Estimated GFR 28 (L) >=60 CERNER MILLENNIU M Comment: This [...] the following links into your internet browser. http://www.nkdep.nih.gov/lab-evaluation. shtml http://www.kidney.org/professionals/ Specimen Anatomical Collection Method Collection Time Receive d Time (Source) Location / / Volume Laterality Blood specimen 07/07/2013 3:30 PM 014 3:41 (specimen) EST PM EST Resulting Agency Comment Spec In Lab Fermín Palacios MD CHEMISTRY ORDERABLES Performing Organization Address City/State/ZIP Code Phon e Number [place] [phone] CERNER MILLENNIUM (ABNORMAL) CBC (with Diff) (07/07/2013 3:30 PM EST) P athologist Signature WBC 3.7 (L) 4.0 - 10.0 CERNER x10(3)/mcL MILLENNIUM RBC 3.36 (L) 4.63 - CERNER 6.08 MILLENNIUM x10(6)/mcL Hemoglobin 10.4 (L) 13.7 - CERNER 17.5 gm/dL MILLENNIUM Hematocrit 31.4 (L) 40.0 - CERNER 51.0 % MILLENNIUM MCV 93.5 (H) 79.0 - CERNER 92.0 fL MILLENNIUM MCH 31.0 25.6 - CERNER 32.2 pg MILLENNIUM MCHC 33.1 32.0 - CERNER 36.5 gm/dL MILLENNIUM Platelets 95 (L) 145 - 370 CERNER x10(3)/mcL MILLENNIUM RDWSD 45.3 35.0 - CERNER 46.0 fL MILLENNIUM RDWCV 13.3 10.9 - CERNER 14.4 % MILLENNIUM MPV 11.6 9.0 - 12.0 CERNER fL MILLENNIUM Specimen Anatomical Collection Method Collection Time Receive d Time (Source) Location / / Volume Laterality Blood specimen 07/07/2013 3:30 PM 014 3:41 (specimen) EST PM EST Resulting Agency Comment Spec In Lab Fermín Palacios MD HEMATOLOGY ORDERABLES Performing Organization Address [facility] [place] [address] CERNER MILLENNIUM (ABNORMAL) Zinc (07/07/2013 3:30 PM EST) athologist Signature Zinc 0.43 (L) 0.66 - 1.10 CERNER mcg/mL [facility] Comment: Test Performed by: [place] [address] Chief Technician X Ray: Luis byers III, M.D. Specimen Anatomical Collection Method Collection Time Receive d Time (Source) Location / / Volume Laterality Blood specimen 07/07/2013 3:30 PM 014 4:45 (specimen) EST PM EST Resulting Agency Comment Spec In Lab Fermín Palacios MD CHEMISTRY ORDERABLES Performing Organization Address [facility] [place] [address] CERNER MILLENNIUM (ABNORMAL) Hemoglobin A1c (07/07/2013 3:30 PM EST) [facility] gist Method Time Signature Hemoglobin A1C 12.0 (H) <=5.6 % CERNER MILLENNIUM Comment: As of 2013 the methodology for Hem oglobin A1c testing has changed. This change is accompanied by a new interpret ida statement and flags. Please review the new interpretive statement and conta ct Dr. Ordonez or Dr. Barriga with questions. Reference Range: 4.3 ? 5.6% 5.7 ? 6.4% - Increased Risk of Developing Diabetes Mellitus 6.5% - Consistent with diagnosis of Diab etes Mellitus In the absence of hyperglycemia (i.e. pl asma glucose > 200 mg/dL) or classic symptoms of hyperglycemia a repeat measu rement of HbA1c should be performed on a separate sample to confirm the diagnos is. Diagnosis and Classification of Diabetes Mellitus, Diabetes Care 2013; 36: Suppl. 1, S67-74 Est Avg Gluc 298 mg/dL [facility] Comment: eAG equivalents for HbA1c percentages: HbA1c(%) ?eAG(mg/dL) 6.0 ?126 6.5 ?140 7.0 ?154 7.5 ?169 8.0 ?183 8.5 ?197 9.0 ?212 9.5 ?226 10.0 ? 240 Limitations: The eAG calculation has not been validated on women, individuals below 18 years old and above 70 years old, and individuals with hemoglobinopathies. Additional resources are available on [facility] ADA website: ??http://professional.diabetes.org/gluc osecalculator.aspx José FLORES, Chaz J, Jeff R, et al. ??Tr anslating the A1C assay into estimated average glucose values. ??Diabetes Care 2008:31(8):8368-3634. Specimen Anatomical Collection Method Collection Time Receive d Time (Source) Location / / Volume Laterality Blood specimen 07/07/2013 3:30 PM 014 3:41 (specimen) EST PM EST Resulting Agency Comment Spec In Lab Fermín Palacios MD CHEMISTRY ORDERABLES Performing Organization Address City/State/[place] [address] CERNER MILLENNIUM Ceruloplasmin (07/07/2013 3:30 PM EST) athologist Signature Ceruloplasmin 25.6 15.0 - CERNER 30.0 mg/dL MILLENNIUM Specimen Anatomical Collection Method Collection Time Receive d Time (Source) Location / / Volume Laterality Blood specimen 07/07/2013 3:30 PM 014 3:41 (specimen) EST PM EST Resulting Agency Comment Spec In Lab Fermín Palacios MD CHEMISTRY ORDERABLES Performing Organization Address [facility]/ZIP Code Phon e Number [address] CERNER MILLENNIUM A1AT Serum Concentration (07/07/2013 3:30 PM EST) athologist Signature A1AT 176 90 - 200 CERNER mg/dL MILLENNIUM Comment: Please note that as of 01/26/2013, the te sting methodology for this assay has changed. Please review the interpretive criteria for any associated changes in reference interval Specimen Anatomical Collection Method Collection Time Receive d Time (Source) Location / / Volume Laterality Blood specimen 07/07/2013 3:30 PM 014 3:41 (specimen) EST PM EST Resulting Agency Comment Spec In Lab Fermín Palacios MD CHEMISTRY ORDERABLES Performing Organization Address [facility]/[place] [address] CERNER MILLENNIUM (ABNORMAL) Iron and TIBC (07/07/2013 3:30 PM EST) athologist Signature Iron 52 45 - 160 CERNER mcg/dL MILLENNIUM TIBC 335 250 - 450 CERNER mcg/dL MILLENNIUM Iron Saturation 16 (L) 20 - 50 % CERNER MILLENNIUM Specimen Anatomical Collection Method Collection Time Receive d Time (Source) Location / / Volume Laterality Blood specimen 07/07/2013 3:30 PM 014 3:41 (specimen) EST PM EST Resulting Agency Comment Spec In Lab Fermín Palacios MD CHEMISTRY ORDERABLES Performing Organization Address City/State/[facility] Phon e Number [address] CERNER MILLENNIUM Ferritin (07/07/2013 3:30 PM EST) athologist Signature Ferritin 97 30 - 400 CERNER ng/mL MILLENNIUM Comment: Pediatric reference ranges not verified at [facility], interpret with caution. Reference ranges for females greater kayleigh n 50 years of age approach values for men, i.e., 30-400 ng/mL. Specimen Anatomical Collection Method Collection Time Receive d Time (Source) Location / / Volume Laterality Blood specimen 07/07/2013 3:30 PM 014 3:41 (specimen) EST PM EST Resulting Agency Comment Spec In Lab Fermín Palacios MD CHEMISTRY ORDERABLES Performing Organization Address [facility] Phon e Number [address] CERNER MILLENNIUM TSH (07/07/2013 3:30 PM EST) athologist Signature TSH 1.64 0.27 - 4.20 CERNER mcIU/mL [facility] Specimen Anatomical Collection Method Collection Time Receive d Time (Source) Location / / Volume Laterality Blood specimen 07/07/2013 3:30 PM 014 3:41 (specimen) EST PM EST Resulting Agency Comment Spec In Lab Fermín Palacios MD CHEMISTRY ORDERABLES Performing Organization Address [facility] Phon e Number [place] [address] CERNER MILLENNIUM KIRTI (07/07/2013 3:30 PM EST) athologist Signature KIRTI Neg Neg CERNER [facility] Comment: Negative KIRTI; however 1:80 Cytoplasmic p attern present using HEP-2 substrate. Is suggestive of autoantibodies to mitochondria or smooth muscle. Specimen Anatomical Collection Method Collection Time Receive d Time (Source) Location / / Volume Laterality Blood specimen 07/07/2013 3:30 PM 014 8:04 (specimen) EST AM EST Resulting Agency Comment Spec In Lab Fermín Palacios MD IMMUNOLOGY ORDERABLES Performing Organization Address City/[facility]/ZIP Code Phon e Number [address] CERNER MILLENNIUM Smooth Muscle Antibody (07/07/2013 3:30 PM EST) athologist Signature Sm Muscle Ab Negative Negative CERNER MILLENNIUM Comment: Test Performed by: [facility] [place] [address] Chief Technician X Ray: Luis byers III, M.D. Specimen Anatomical Collection Method Collection Time Receive d Time (Source) Location / / Volume Laterality Blood specimen 07/07/2013 3:30 PM 014 4:45 (specimen) EST PM EST Resulting Agency Comment Spec In Lab Fermín Palacios MD IMMUNOLOGY ORDERABLES Performing Organization Address City/[facility]/ZIP Code Phon e Number [address] CERNER MILLENNIUM Mitochondrial Antibody, M2 (07/07/2013 3:30 PM EST) athologist Signature Mitochon Ab <0.1 <0.1 CERNER (Negative) MILLENNIUM U Comment: Test Performed by: [facility] [place] [address] Chief Technician X Ray: Luis byers III, M.D. Specimen Anatomical Collection Method Collection Time Receive d Time (Source) Location / / Volume Laterality Blood specimen 07/07/2013 3:30 PM 014 4:45 (specimen) EST PM EST Resulting Agency Comment Spec In Lab Fermín Palacios MD IMMUNOLOGY ORDERABLES Performing Organization Address City/State/ZIP Code Phon e Number [address] CERNER MILLENNIUM (ABNORMAL) IgA (07/07/2013 3:30 PM EST) athologist Signature IgA 634 (H) 70 - 400 CERNER mg/dL MILLENNIUM Specimen Anatomical Collection Method Collection Time Receive d Time (Source) Location / / Volume Laterality Blood specimen 07/07/2013 3:30 PM 014 3:41 (specimen) EST PM EST Resulting Agency Comment Spec In Lab Fermín Palacios MD IMMUNOLOGY ORDERABLES Performing Organization Address City/[facility]/[place] [address] CERNER MILLENNIUM (ABNORMAL) IgG (07/07/2013 3:30 PM EST) athologist Signature IgG 1673 (H) 700 - 1600 CERNER mg/dL MILLENNIUM Specimen Anatomical Collection Method Collection Time Receive d Time (Source) Location / / Volume Laterality Blood specimen 07/07/2013 3:30 PM 014 3:41 (specimen) EST PM EST Resulting Agency Comment Spec In Lab Fermín Palacios MD IMMUNOLOGY ORDERABLES Performing Organization Address City/[facility] Code Phon e Number [address] CERNER MILLENNIUM IgM (07/07/2013 3:30 PM EST) athologist Signature IgM 163 40 - 230 CERNER mg/dL MILLENNIUM Specimen Anatomical Collection Method Collection Time Receive d Time (Source) Location / / Volume Laterality Blood specimen 07/07/2013 3:30 PM 014 3:41 (specimen) EST PM EST Resulting Agency Comment Spec In Lab Fermín Palacios MD IMMUNOLOGY ORDERABLES Performing Organization Address [facility] [place] [address] CERNER MILLENNIUM (ABNORMAL) Hepatitis A Antibody, Total (07/07/2013 3:30 PM EST) [facility] Method Time Signature Hepatitis A Positive (A) Negative CERNER Ab Total MILLENNIUM Comment: Please note that as of 01/13/2013, the jim ting methodology for this assay has changed. However there is no change in t he interpretation of the results. Specimen Anatomical Collection Method Collection Time Receive d Time (Source) Location / / Volume Laterality Blood specimen 07/07/2013 3:30 PM 014 3:41 (specimen) EST PM EST Resulting Agency Comment Spec In Lab Fermín Palacios MD IMMUNOLOGY ORDERABLES Performing Organization Address City/[facility]/ZIP Code Phon e Number [place] [phone] [facility] documented in this encounter Visit Diagnoses Diagnosis Cirrhosis of liver Cirrhosis of liver without mention of al cohol Diabetes mellitus Type II or unspecified type diabetes eugenie litus without mention of complication, not stated as uncontrolled documented in this encounter Care Teams Door Worker Relationship Specialty Start Date End Date Jazmine Baer MD PCP - General 11/07/10 [address] [place] [address] documented as of this encounter
--- OUTSIDE RECORDS SUMMARY | 2022-04-11 10:56 | XMS_ITS | Encounter Summary ---
:1960 [place] [address] Care Team Providers Name Role Phone Jazmine Baer MD Primary Care Provider Reason for Visit Reason Comments Anemia Encounter Details Date Type Department Care Team Description 02/16/2014 Follow-Up Hematology Oncology at [facility] Anemia (Primary Dx) St Yoni Montejo MD [address] [place] [address] [address] [place] HEMATOLOGY/ONCOLOGY [address] DEPT. [phone] [place], [place] [address] (Wo rk) Social History Tobacco [...] Sign Reading Time Taken Comments Blood Pressure 140/70 02/16/2014 2:17 PM EDT Pulse 64 02/16/2014 2:17 PM EDT Temperature 36.7 ??C (98.1 ??F) 02/16/2014 2:17 PM EDT Respiratory Rate 16 02/16/2014 2:17 PM EDT Oxygen Saturation 99% 02/16/2014 2:17 PM EDT Inhaled Oxygen Concentration - - Weight 111.4 kg (245 lb 8 oz) 02/16/2014 2:17 PM EDT Height 172.7 cm (5' 7.99) 02/16/2014 2:17 PM EDT charletteisaias teressa Body Mass Index 37.34 02/16/2014 2:17 PM EDT documented in this encounter Progress Notes Alem Evangelista MD - 02/16/2014 2:29 PM [place] [address] FOLLOW-UP PATIENT EVALUATION PROBLEM LIST: Patient Active Problem List Diagnosis ??? 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 Nonalcoholic steatohepatitis (HORTON) ??? Anemia BMBX was negative. Unclear cause. Either anemia of chronic disease or possibly due to renal insufficiency and decreased epo production. ??? Hepatosplenomegaly US abdomen ??? Nausea and vomiting ??? Diabetes mellitus type II ??? Myopathy Immune mediated necrotizing myopathy ?? Usually followed by [facility] Bucky Marie at [facility] ?? In late 2008 symptoms began (pain in back & RLE, progressive weakness with walking in settingof being on statin x about 9 years) ?? Jun 2009: seen in Neurology for progressive muscle weakness --> myopathy with elevated CK (5000s) ?? Muscle biopsy slides reviewed by Dr. Ricardo in [place], reportedly consistent with necrotizing myopathy ?? Paraneoplastic work up negative ?? Was on prednisone previously ?? MTX and monthly IVIG infusions ?? IVIG seems to be the only effective treatment to him, CK decreasing ?? IVIG was restarted June 2013, complicated by port-induced thrombosis. IVIG discontinued. ?? Workup: ?? TPMT enzyme activity 08/2009 normal ?? Myositis Antibody Panel Plus 06/2009 negative (anti-Kiesha, PM/SCL, NH-2, PL-7, PL-12, EJ, OJ KU, U2 SN ENVIRONMENTAL AID, SRP) ?? mitochondrial mutations: Absence of all screened point mtDNA mutations and deletions associated with neuromuscular disorders. Jun 2012 ?? Seen by Dr. David. CK 1 month prior was 1200 ?? IVIG restarted in Jul ?? Seen by Dr. Mcclellan ?? On 2 days IVIG per month, on MTX 15mg qweekly ?? Since restarting back on IVIG, patient's weakness has stabilized per Dr. Marie. Patient's weakness waxes and wanes. On a good day, patient is able to get up and able to perform chores and able to lift up to 10-20 lbs. On a bad day, it takes longer to get out of bed and lacks energy all day long, and gait is less stable and he rocks to sit up. Patient has fallen once since the last visit (in December) without any serious injury. Patient continues to have constant lower back pain and sharp R kneepain. Denies cramps. He notices fatigue in the arms when carrying things. Able to climb up a few steps of stairs. Patient has not had blood work done for about 5 months. Patient reports that Dr. Marie had recommended continuation of IVIG and MTX at the appointment 1 day prior to the visit. Patientuses his cane towards the end of the day if he really needs it. ?? Patient has been vomiting frequently and has a referral to see GI. Patient also has been having afew pustular erythema and requesting to see dermatology. Per PCP, patient was supposed to have ferritin, iron, b12, folate checked but he has not done so as he hasn't gone to the lab lately, and requests these checked if he is getting blood work done today. ?? Comparing documented exam from last visit and today's encounter, patient's weakness has improved a little. ?? Patient and his are inquiring about need for MRI for his back pain, though patient had problem getting MRI in the past 2/2 claustrophobia. Patient's exam is negative for signs of severe radiculopathy such as sensory loss, focal weakness, hyperreflexia or shooting pain, so will forgo MRI for now, patient understands this. ?? Plan: ?? continue IVIG 2 days per month, methotrexate 15mg qweekly ?? monitor CK, check CBC, CMP, CK, ferritin, iron, b12, folate ?? continue home PT ?? continue zofran prn for nausea, folate 1mg daily ?? agree with GI and dermatology evaluation (will defer to PCP for referral) ?? RTC in 6 months INTERIM HISTORY OF PRESENT ILLNESS: It was my pleasure to see Bucky Acevedo back in clinic today. Bucky Acevedo is a 53 y.o. year old male being seen for follow-up evaluation of Anemia. He has been getting IVIG for his myositis. Itwas restarted after our appt in Jun. unfortunately after reinitiation of the IVIG in June 2013, St even developed a port induced thrombosis. Plans are to discontinue the IVIG and removed the mediport. His IVIG has been discontinued after the port thrombosis. His myositis continues to be in poor control. Labs from September 2013 show a sedimentation rate greaterthan 120. He also has continued to lose weight. He has anemia as of September was down to 8.7 with a creatinine of 1.5. His CLcr was over 80 so he was not a Candidate to consider exogenous epo supplementation. His repeat labs at [facility] in 01/2014 show an even better CLcr of over 100 with improved creat. ESR remains high and anemia of chronic disease secondary to chronic inflammation is the most likely causeof his anemia. Today his H/H has improved spontaneously since his appt in September. ROS Energy level: he reports that his fatique is improved overall. Pain: chronic back pain thought to be due to DJD Appetite:good Fevers/chills/sweats:No Bruising/bleeding/melena:No Recent infections:No HEENT: negative Nausea/vomiting/diarrhea/constipation:No SOB/CALDERON/chest pain:No Change in adenopathy or other masses:No Unexpected weight loss or gain:No Skin rashes or petechiae:No Musculoskeletal complaints: myositis pain is slightly improved Extremities: Negative upper and lower bilaterally Neurologic symptoms:No Mood: Normal Sleep: Difficulty sleeping - awakens early MEDS: Outpatient Prescriptions Marked as Taking for the 02/16/14 encounter (Follow-Up) with Alem Evangelista MD Medication Sig Dispense Refill ??? warfarin (COUMADIN) 5 mg tablet Take 5 mg by mouth daily. ??? omeprazole (PRILOSEC) 40 mg capsule Take 1 capsule by mouth daily. 90 capsule 3 ??? indomethacin (INDOCIN) 25 mg capsule Take 12.5 mg by mouth 2 times daily (with meals). ??? ondansetron (ZOFRAN) 4 mg tablet Take 1 tablet by mouth as needed. 20 tablet 3 ??? INSULIN LISPRO (HUMALOG SUBQ) Inject 18 Units subcutaneously 3 times daily (with meals). ??? insulin glargine (LANTUS) 100 unit/mL vial injection Inject 70 Units subcutaneously nightly. ??? lisinopril-hydrochlorothiazide (PRINZIDE;ZESTORETIC) 20-12.5 mg per tablet Take 2 tablets by mouth daily. ??? atenolol (TENORMIN) 100 mg tablet Take 50 mg by mouth daily. ??? traMADol (ULTRAM) 50 mg tablet Take 200 mg by mouth 2 times daily. Allergies: Allergies Allergen Reactions ??? Morphine Itching ??? Tpqbxsm-Www-Vhu Reductase Inhibitors Myopathy INTERIM SOCIAL HISTORY Changes in job, home situation, tobacco or alcohol use: see HPI PHYSICAL EXAM BP 140/70 Pulse 64 Temp 36.7 ??C (98.1 ??F) (Oral) Resp 16 Ht 172.7 cm (5' 7.99) Wt 111.358 kg (245 lb 8 oz) BMI 37.34 kg/m2 SpO2 99% Body surface area is 2.31 meters squared. GENERAL: Bucky Acevedo appears well and is in no acute distress. ENT: Oral pharynx clear. EYES: MARYSOL NECK: Supple without adenopathy. AXILLARY: no adenopathy OTHER LYMPH: no adenopathy CARDIAC: Regular rate and rhythm without S3,S4 or murmurs. LUNGS: Clear to auscultation./percussion ABDOMEN: Soft and non-tender without hepatosplenomegaly or masses. EXTREMITIES: No cyanosis, clubbing, edema or calf tenderness. SKIN: No bruises or petechiae. NEUROLOGICAL: Alert and oriented to person, place and time. MUSCULOSKELETAL: pain in back, chronic, exacerbated with some movement LABORATORY STUDIES No results found for this or any previous visit (from the past 72 hour(s)). Labs 06/2013 at [facility] Iron equals 52, TIBC equals 335, iron saturation = 16% percent. Ferritin 97. Labs for 09/29/13 White count is 4.0 hemoglobin 8.7 MCV 93.8 RDW 16 platelet count is 153. Sedimentation rate is greater than 120. Creatinine is 1.5 ALT is slightly elevated 45 CK is elevated at 664 Labs 01/27/14 at [facility] White count 3.6 with an ANC of 2.09. Hemoglobin 9.9. Platelets 121. Creatinine 1.1. Calculated creatinine clearance of greater than 100. Labs 02/12/14 at [facility] WBC is 5.6. Hemoglobin 9.9. MCV 85. Platelet count 147. Normal differential. ANC 2.9. ALC 1.8. Sedimentation rate 64. Iron 48, TIBC 505, iron saturation 10. Ferritin low at 17. RADIOLOGY STUDIES REVIEWED: EGD and colonoscopy done at [facility] in July 2013. EGD with mild gastritis only. Patient on PPI. Colonoscopy with small flat hyperplastic polyp. Next colonoscopy recommended for 5-10 years. ASSESSMENT/PLAN: It was my pleasure to see and Mrs. Acevedo back in clinic today. Mr. Acevedo had previously beenseen at [facility] for ongoing anemia. I suspected that he probably would have an anemia of chronic disease however his iron studies in June did not support that. Bone marrow biopsy was normal. The only only etiology we could find was that his erythropoietin level was inappropriately low at 6. He did have chronic renal insufficiency. But this has improved over the last 4 mos and his CLcr is now over 100so he would not qualify for epo supplementation. His myositis has remained quite active and is elevated ESR reflects that - ESR = 64 at today's visit. He received IVIG as treatment for his myositis however, he developed a port induced thrombosis. He is scheduled for port removal and Continues on coumadin. Braeden clearly does not qualify for erythropoietin supplementation. Of note, today his iron studiesreflect iron deficiency anemia. His anemia now is consistent with LONNIE. CVAD had iron studies done at [facility] in June 2013. At that time he has no evidence of iron deficiency. Please see labs above. EGD and colonoscopy were done in July 2013. Only mild gastritis and a small polyp were noted. He continues on PPI. His labs now showprogressive iron deficiency. Transferrin saturation is down to 10 and ferritin is down to 17. This is a significant change from the last 6 months ago. PE allergy of this is puzzling. With a negative endoscopy so recently, it is hard to imagine that he is having GI blood loss. He notes no dark black stools no chocolate colored stools and no bread red blood per rectum. He has no other signs or symptomsof bleeding. I will check TTA, it is possible that he has not absorbing iron well. Duodenal biopsieswere not done at the time of his last EGD so celiac sprue was not ruled out. At the time being, I amgoing to start him on iron supplementation and see him back in 4 months to assess response. I will also repeat his erythropoietin level at that time. 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 One was associated with his Mediport. The other was associated with a needlestick. Both were in the setting of IVIG. Both were thought to be provoked. Dr. Baer asked my opinion regarding the duration of Coumadin for the second thrombosis. She was thinking of 6 months. Giventhat Braeden has ongoing inflammation from his myositis, I think 6 months would be better than 3. I would agree with this plan. I think Return to clinic in 4 months with CBC, CMP, iron, TIBC, ferritin, erythropoietin level, and TTA. Start iron supplementation at 1-2 tablets per day total time: 30 time in counsellin Copy JAZMINE BAER MD documented in this encounter Miscellaneous Notes Advance Care Plan Note - Lucía Garrido RN - 02/16/2014 2:25 PM EDT ADVANCE CARE PLANNING NOTE I. WHEN TO USE THIS FORM: This Advance Care Planning Note should be used for patients with decisional capacity who have not executed advance directives, such as a Durable Power of Profile Grinder for Health Care. DETERMINATION OF CAPACITY The basis for decisional capacity entails all of the following criteria. The patient, Bucky Acevedo, must be able (in a general way) to understand: ?? His condition ?? Treatment alternatives ?? Potential benefits and risks of proposed treatments/interventions The patient has the capacity to make decisions: Yes If the patient does not have decisional capacity, go no further. This form cannot be used. II. DESIGNATION OF DECISION MAKER The patient, Bucky Acevedo, expresses the following preference: Designation of health care agent: The patient, Bucky Acevedo, identifies the following individualto serve as a health care agent, authorized to speak for the individual in making medical treatment decisions in the future if he/she is unable to speak for him/herself. Name: Bethanie Acevedo Relationship to patient: III. OPTIONAL EXPRESSION OF PREFERENCES FOR SPECIFIC LIFE-PROLONGING TREATMENTS Not discussed at this time. IV: OTHERS PRESENT None V. OTHER COMMENTS Not interested in Advanced Directives forms at this time. documented in this encounter Plan of Treatment Upcoming Encounters Date Type Specialty Care Team Description 06/19/2022 Office Visit Rheumatology Richi Blackmon MD [facility] [address] RHEUMATOLOGY [place], [place] [address] (Wo rk) Scheduled Procedures Name Priority Associated Diagnoses Date/Time EGD, UPPER GI ENDOSCOPY Family hx of colon cance r COLONOSCOPY, DIAGNOSTIC Family hx of colon cance r documented as of this encounter Visit Diagnoses Diagnosis Anemia - Primary Anemia, unspecified documented in this encounter Care Teams Substance Abuse Prevention Coordinator Relationship Specialty Start Date End Date Jazmine Baer MD PCP - General 11/07/10 [address] [place] [address] documented as of this encounter
--- OUTSIDE RECORDS SUMMARY | 2022-04-11 10:56 | XMS_ITS | Encounter Summary ---
:1960 Author Organization [facility] [place] [address] Care Team Providers Name Role Phone Jazmine Baer MD Primary Care Provider Encounter Details Date Type Department Care Team Description 01/27/2014 Follow-Up Gastroenterology at [facility] Joann Giordano Cirrhosis of liver [facility] Hilda Navarro APRN (Primary Dx) [place] [address] [facility] [phone] GASTROENTEROLOGY DEPT [place] [address] Social History Tobacco Use Types Packs/Day Years [...] Reading Time Taken Comments Blood Pressure 155/60 01/27/2014 1:24 PM EDT Pulse 64 01/27/2014 1:24 PM EDT Temperature - - Respiratory Rate - - Oxygen Saturation - - Inhaled Oxygen Concentration - - Weight 113.4 kg (250 lb) 01/27/2014 1:24 PM EDT Height 172.7 cm (5' 8) 01/27/2014 1:24 PM EDT Body Mass Index 38.01 01/27/2014 1:24 PM EDT documented in this encounter Progress Notes Joann Giordano APRN - 01/27/2014 1:37 PM EDT Subjective: Patient ID: Bucky Beth is a 53 y.o. male. HPI Problem List: 1. Cirrhosis A. Labs - see below B. Imaging - see below C. Liver Biopsy - none to date D. Complications 1. Hepatic Encephalopathy A. Possible mild HE with altered sleep patterns B. 07/07/13 Rx Rifaximin 550 mg BID C. 01/27/14 - no improvement in sleep patterns with Rifaximin - d/c Rifaximin 2. Ascites - none to date 3. UGIB - none to date 4. Portal HTN - EGD 07/21/13 no EV 5. Liver Lesion - A. 01/27/14 Stable 1.6 cm hemangioma 2. DM2 3. HTN 4. Hyperlipidemia 5. Class II Obesity 6. Myositis 7. Anemia 8. 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 HAV/HBV: (+)/(-) 2. Colonoscopy - 07/21/13 hyperplastic polyp. Due again 07/2023 3. Portal HTN: EGD 07/21/13 no EV. Due again 07/2016 4. HCC Surveillance: MRI 01/27/14 no liver lesions concerning for HCC (stable hemangioma). AFP 5.1 (01/27/14) 5. Influenza: received through PCP 2012 6. Pneumovax: ? Initial Consult 07/07/13: Mr. Beth is a very pleasant 53 year old white male seen today at [facility] Hepatology Clinic in consultation for concerns about [...] awake all night and sleeps all day. Interval History 01/27/14: Mr. Beth returns today in follow-up of cirrhosis due to HORTON. He tells me that he developed a blood clot of his subclavian vein at the end of October despite being on Lovenox; he is now on coumadin. He tells me that his last A1c was 7.2 (I don't have these records) in November, which is down from 12.0 in June. He has been walking for 15 minutes most three days weekly on his treadmill. He tells me that the Rifaximin might have helped initially but continues to have difficulty sleeping. He has been fighting with his which is contributing to his depression. He denies SI. He denies s/s overt HE, UGIB, ascites. Abdominal Ultrasound 05/27/13: Impression Ultrasound - Abdomen [...] cholecystitis. 4. Inadequate visualization of the pancreas. Labs 07/07/13: Hgb 10.4 Plt 95 INR 1.3 Creat 2.40 A1c 12.0 Alb 3.0 T. Bili 0.5 AP 113 AST 37 ALT 29 Ferritin 97 Iron 52 TIBC 335 Iron Sat 16 Zinc 0.43 A1AT 176 KIRTI negative AMA negative SMA negative IgG 1673 IgA 634 IgM 163 TSH 1.64 Ceruloplasmin 25.1 EGD 07/21/13: Findings: The upper third of the esophagus and middle third of the esophagus were normal. There wereesophageal mucosal changes classified as Durand's stage C1-M2 per [place] criteria present in the lower third of the esophagus. The maximum longitudinal extent of these mucosal changes was 2 cm in length. Mucosa was biopsied with a cold forceps for histology. One specimen bottle was sent to pathology.A small hiatus hernia was present. Scattered mild inflammation characterized by erythema and granularity was found in the gastric antrum. Biopsies were taken with a cold forceps for Helicobacter pyloritesting. The examined duodenum was normal. Impression: - Normal upper third of esophagus and middle third of esophagus. - Esophageal mucosal changes classified as Durand's stage C1-M2 per [place] criteria. Biopsied. - Hiatus hernia. - Gastritis. Biopsied. - Normal examined duodenum. Recommendation: - Await pathology results. - Proceed with EUS - The attending physician listed EUS 07/21/13: Impression: - 10mm pancreas body likely cystic lesion s/p FNA. - 10mm pancreas body/tail lesion s/p FNA. This may represent an intrapancreatic lymph-node, intrapancreatic splenule, neuroendocrine tumor, or other. Recommendation: - Await cytology results. - Proceed with colonoscopy. - Cipro 500 mg BID x 3 days. - The attending physician listed above was present for the entire procedure. Colonoscopy 07/21/13: Impression: - Hemorrhoids found on perianal exam. - One 2 mm polyp in the sigmoid colon. Resected and retrieved. - The examined portion of the ileum was normal. Recommendation: - Discharge patient to home (via wheelchair). - Await pathology results. - Repeat colonoscopy in 5-10 years for surveillance based on pathology results. EUS/EGD Pathology 07/21/13: ---Pathologic Diagnosis--- A - Sigmoid colon, polypectomy: Hyperplastic polyp. B - Distal esophagus,biopsy: Squamocolumnar junctional mucosa with intestinal metaplasia, negative for dysplasia. C - Stomach, biopsy: Antrum-type mucosa with very mild chronic gastritis. Body/fundic-type mucosa with very mild chronic gastritis and superficial intestinal metaplasia in two oxyntic mucosal fragments. Immunostaining for H. pylori is negative. (see Note) Note: Superficial intestinal metaplasia in some tissuefragements labeled as taken from the stomach may represent either true metaplasia of the gastric mucosa or metaplastic Durand's mucosa if taken close to GE junction. Endoscopic correlations are recommended. ---Comment--- Pancreas, EUS-guided FNA 1cm cystic mass pancreas body: Clusters of mucinous epithelial cells present, compatible with neoplastic mucinous cyst. Cell block findings incorporated. Additional levels examined. Clinicopathologic correlation is recommended. Drs. Lai, Salvador and Yaneli have reviewed the case and concur with the above diagnosis. Labs 01/27/14: Results for BUCKY BETH ( ) as of 01/27/2014 13:48 Ref. Range 01/27/2014 09:01 WBC Latest Range: 4.0-10.0 x10(3)/mcL 3.6 (L) RBC Latest Range: 4.63-6.08 x10(6)/mcL 3.51 (L) Hemoglobin Latest Range: 13.7-17.5 gm/dL 9.9 (L) Hematocrit Latest Range: 40.0-51.0 % 30.3 (L) MCV Latest Range: 79.0-92.0 fL 86.3 MCH Latest Range: 25.6-32.2 pg 28.2 MCHC Latest Range: 32.0-36.5 gm/dL 32.7 RDWSD Latest Range: 35.0-46.0 fL 43.2 RDWCV Latest Range: 10.9-14.4 % 13.8 Platelets Latest Range: 145-370 x10(3)/mcL 121 (L) MPV Latest Range: 9.0-12.0 fL 11.1 Neutr Abs (ANC) Latest Range: 1.50-6.30 x10(3)/mcL 2.09 Neutrophils % Latest Range: 34.0-71.0 % 57.9 Immature Gran % Latest Range: 0.00-0.66 % 0.00 Lymphocytes % Latest Range: 19.0-53.0 % 29.9 Monocytes % Latest Range: 4.0-13.0 % 8.9 Eosinophils % Latest Range: 0.0-7.0 % 2.5 Basophils % Latest Range: 0.0-2.0 % 0.8 Tamara Gran Abs Latest Range: 0.00-0.05 x10(3)/mcL 0.00 Lymphocytes Abs Latest Range: 1.0-3.6 x10(3)/mcL 1.1 Monocyte Abs Latest Range: 0.2-1.0 x10(3)/mcL 0.3 Eosinophils Abs Latest Range: 0.0-0.5 x10(3)/mcL 0.1 Basophils Abs Latest Range: 0.0-0.2 x10(3)/mcL 0.0 PT Latest Range: 12.5-15.5 sec 31.4 (H) INR Latest Range: 0.9-1.1 2.8 (H) Sodium Latest Range: 135-145 mmol/L 135 Potassium Latest Range: 3.5-5.0 mmol/L 4.4 Chloride Latest Range: 98-107 mmol/L 103 CO2 Latest Range: 22-31 mmol/L 21 (L) Anion Gap Latest Range: 5-15 mmol/L 11 BUN Latest Range: 10-20 mg/dL 17 Creatinine Latest Range: 0.80-1.50 mg/dL 1.11 Estimated GFR Latest Range: >=60 >60 Glucose Lvl Latest Range: 60-199 mg/dL 261 (H) Calcium Latest Range: 8.5-10.5 mg/dL 9.2 Total Protein Latest Range: 6.4-8.3 gm/dL 7.6 Albumin Latest Range: 3.2-5.2 gm/dL 3.6 Total Bilirubin Latest Range: 0.2-1.3 mg/dL 0.3 Bili, Direct Latest Range: 0.0-0.3 mg/dL 0.1 Alk Phos Latest Range: 40-120 unit/L 114 AST Latest Range: 0-39 unit/L 54 (H) ALT Latest Range: 0-55 unit/L 43 AFP Latest Range: <=8.3 ng/mL 5.1 Abdominal MRI 01/27/14: Impression 1. Stable solitary hepatic lesion with imaging features most consistent with hemangioma. 2. Mild splenomegaly, marginally increased from prior. 3. Cholelithiasis without acute cholecystitis. 4. Stable 9 mm cystic focus in the body of the pancreas with differential including cyst, pseudocyst, and side branch IPMN. Recommend followup MRCP in 6-12 months. Past Medical History Diagnosis Date ??? Diabetes [...] marrow aspiration w/bx through same incision/site 05/28/2013 [facility] BONE MARROW ASP PERFORMED W/BX THRU BX INCISION performed by Alem Evangelista MD at [facility] ??? Bone marrow bx, needle/trocar 05/28/2013 ([facility]) BONE MARROW,BIOPSY performed by Alem Evangelista MD at [facility] ??? Muscle biopsy 2008 ??? Lithotripsy ??? Tunneled venous port placement 2011 ??? Colonoscopy, diagnostic 07/21/2013 COLONOSCOPY, DIAGNOSTIC performed by Royer Temple MD at [facility] ??? Endoscopic us exam, esoph 07/21/2013 UPPER EUS- ENDOSCOPIC ULTRASOUND performed by Royer Temple MD at [facility] ??? Upper gi endoscopy, biopsy 07/21/2013 UPPER GASTROINTESTINAL ENDOSCOPY,WITH BIOPSY SINGLE OR MULTIPLE performed by Royer Temple MD at [facility] warfarin (COUMADIN) 5 mg tablet; [DISCONTINUED] enoxaparin (LOVENOX) 120 mg/0.8 mL injection; [DISCONTINUED] morphine (MSIR) 15 mg tablet; omeprazole (PRILOSEC) 40 mg capsule; indomethacin (INDOCIN) 25mg capsule; rifaximin (XIFAXIN) 550 mg Tab tablet; ondansetron (ZOFRAN) 4 mg tablet; trimethobenzamide (TIGAN) 300 mg capsule; INSULIN LISPRO (HUMALOG SUBQ); insulin glargine (LANTUS) 100 unit/mL vial injection lisinopril-hydrochlorothiazide (PRINZIDE;ZESTORETIC) 20-12.5 mg per tablet; atenolol (TENORMIN) 100 mg tablet; [DISCONTINUED] metFORMIN (GLUCOPHAGE) 500 mg tablet; [DISCONTINUED] immune globulin,hum,,capr,IGG, (GAMUNEX) 10 % Inj infusion; traMADol (ULTRAM) 50 mg tablet No current facility-administered medications for this visit. [COMPLETED] gadopentetate dimeglumine (MAGNEVIST) injection 0.2 mL/kg; gadobutrol (GADAVIST) 10 mmol/10 mL (1 mmol/mL) injection 11.34 mL Allergies Allergen Reactions ??? Bvrmufc-Kgw-Adp Reductase Inhibitors Myopathy Family Status Relation Status Age ??? Mother 59 DM2, colorectal cancer, obesity ??? Father 60 GA, HTN, hyperlipidemia ??? Sister Alive age 56, [...] Diabetes Mother ??? Myocardial Infarction Father first GA at 36 ??? Coronary Artery Disease Father ??? Stomach Cancer uncle ??? Obesity Mother ??? Hypertension Father ??? Hyperlipidemia Father ??? Type 2 Diabetes Paternal Uncle ??? Obesity Sister ??? Type 2 Diabetes Sister ??? Cirrhosis Paternal Aunt Alcohol Abuse History Social History ??? Marital Status: Spouse [...] 2009. 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 Review of Systems Constitutional: Positive for fatigue (fatigue, improved). Negative for fever, chills, diaphoresis and unexpected weight change. Normal adult weight 240-255 lbs. HENT: Positive for nosebleeds (no longer getting nosebleeds s/p cautery July or August 2013). Negative for trouble swallowing. Respiratory: Negative for cough, shortness of breath and wheezing. Cardiovascular: Positive for chest pain (mild chest pain when walking on treadmill; he will stop andchest pain resolves) and leg swelling (with prolonged sitting and standing). Negative for palpitations. Gastrointestinal: Negative for [...] fall occasionally. Last episode of falling x 12 months Hematological: Bruises/bleeds easily (x 6-12 months). Psychiatric/Behavioral: Positive for sleep disturbance (awake all night, then sleeps all day x 1 year) and dysphoric mood (depression r/t current health but working it out. tells me that has been fighting with which is stressful). Negative for suicidal ideas and confusion. Objective: Physical Exam Constitutional: He is oriented to person, place, and time. He appears well- developed and well-nourished. Body mass index is 38.02 kg/(m^2). HENT: Head: Normocephalic and atraumatic. edentulous Eyes: No scleral icterus. Musculoskeletal: He exhibits no edema. Neurological: He is alert and oriented to person, place, and time. No asterixis Skin: Skin is warm and dry. There is erythema (mild palmar erythema. spider angiomata on chest). Psychiatric: He has a normal mood and affect. His behavior is normal. Assessment and Plan: Mr. Beth is a very pleasant 53 year old white male seen today in follow-up of HORTON-related cirrhosis. 1. Cirrhosis, likely HORTON. MELD 19 but pt on coumadin and INR elevated. Child's A. 2. Portal HTN. EGD 07/21/13 negative for esophageal varices. Due again 07/2016 3. Hepatic encephalopathy, mild. He had been experiencing alter sleep patterns x 1 year. He started Rifaximin after his last visit and felt that it might have helped initially but unfortunately his altered sleep patterns recurred. Will d/c the rifaximin; if notes worsening sleep patterns or confusion he can restart his rifaximin. 4. Thrombocytopenia. This is due to portal hypertension and splenomegaly. 5. HAV/HBV. He is not immune to HBV. He is immune to HAV. HBV #1 (40 mcg dose HBV due to cirrhosis) administered 01/27/14. He can have #2 in one month through PCP and his 3rd in 6 months when he returnsto see me. . 6. Influenza vaccine. Strongly advise that he obtain this annually. He tells me he received this in the fall. 7. Pneumovax. Strongly advise that he get this vaccine q 5 years. He is not sure if he has already had this. 8. Hyperplastic polyp. His colonoscopy on 07/21/13 revealed hyperplastic polyp. He will be due for repeat colonoscopy 07/2023 9. Pancreatic mucinous cystic neoplasm. He underwent biopsy of the pancreatic lesion which was foundto be mucinous cyst. His MRI is pending today; will plan to repeat MRI in one year. 10. Durand's Esophagus. He will need to continue with omeprazole 40 mg qam. Due for Durand's surveillance with EGD in 3 years (also same for esophageal variceal screen). 11. HORTON. His risk factors include Class II Obesity, DM2, hyperlipidemia, HTN. His A1c in June was 12.0. He tells me that his A1c about three months ago was 7.2 (I do not have a copy of these labs).He started walking on his treadmill for 15 min three times a week. I have encouraged continued efforts for weight loss through diet and exercise. 12. HCC Surveillance. His MRI today was negative for worrisome liver lesions (stable hemangioma noted). He will be due for repeat imaging in 6 months. WIll plan to alternate ultrasound and MRI every 6 months. Due for ultrasound in July. All of his questions were answered at the conclusion of the visit. He verbalized understanding to the agreement to the plan of care. -F/U appt with me in 6 months with labs, ultrasound and HBV #3 40 min of this 50 min visit spent counseling pt documented in this encounter Plan of Treatment Upcoming Encounters Date Type Specialty Care Team Description 06/19/2022 Office Visit Rheumatology Richi Blackmon MD [facility] DR RHEUMATOLOGY [place], [place] [address] (Wo rk) Scheduled Procedures Name Priority Associated Diagnoses Date/Time EGD, UPPER GI ENDOSCOPY Family hx of colon cance r COLONOSCOPY, DIAGNOSTIC Family hx of colon cance r documented as of this encounter Visit Diagnoses Diagnosis Cirrhosis of liver - Primary Cirrhosis of liver without mention of al cohol documented in this encounter Care Teams Financial Sales Manager Relationship Specialty Start Date End Date Jazmine Baer MD PCP - General 11/07/10 [address] [place] [address] documented as of this encounter
--- OUTSIDE RECORDS SUMMARY | 2022-04-11 10:56 | XMS_ITS | Encounter Summary ---
:1960 Author Organization [facility] Address [facility] [place] [address] Care Team Providers Name Role Phone Jazmine Baer MD Primary Care Provider Reason for Visit Reason Onset Date Comments Other 09/15/2013 Knee pain Encounter Details Date Type Department Care Team Description 09/15/2013 Telephone Neurology at [facility] Ruperto Mcclellan MD Other (Knee pain) [facility] Hilda [facility] [place] [address] NEUROLOGY DEPT [phone] [place] [address] (Wo rk) Social History Tobacco Use Types [...] Telephone Encounter - Ruperto Mcclellan MD - 09/15/2013 3:27 PM EDT Called patient back. Patient saw his PCP last and had some blood work done including CK. Hedoes not know the results as his PCP is away until this . I called the PCP's office but unable to get to any RN or practitioner. Instructed the patient to obtain the CK value from last . If it is below Jun 2013's value (452) the pain is unlikely related to his myopathy. The pain is still in the joints and not in the muscles. He will call back with the CK result. Telephone Encounter - Uma Manriquez - 09/15/2013 2:42 PM EDT Pt is having pain in the left knee and ankles now. He would like to speak with you regarding the worsening condition. documented in this encounter Plan of Treatment Upcoming Encounters Date Type Specialty Care Team Description 06/19/2022 Office Visit Rheumatology Richi Blackmon MD [facility] DR RHEUMATOLOGY [place], [place] [address] (Wo rk) Scheduled Procedures Name Priority Associated Diagnoses Date/Time EGD, UPPER GI ENDOSCOPY Family hx of colon cance r COLONOSCOPY, DIAGNOSTIC Family hx of colon cance r documented as of this encounter Visit Diagnoses Not on filedocumented in this encounter Care Teams Teenage Program Director Relationship Specialty Start Date End Date Jazmine Baer MD PCP - General 11/07/10 [address] [place] [address] documented as of this encounter
--- OUTSIDE RECORDS SUMMARY | 2022-04-11 10:56 | XMS_ITS | Encounter Summary ---
:1960 Author Organization [facility] [place] [address] Care Team Providers Name Role Phone Jazmine Baer MD Primary Care Provider Reason for Visit Reason Onset Date Comments Other 09/08/2013 Update regarding R k joslyne Encounter Details Date Type Department Care Team Description 09/08/2013 Telephone Neurology at [facility] Ruperto Mcclellan MD Other (Update regarding [facility] [address] [place] [address] NEUROLOGY DEPT [phone] [place] [id number] (Wo rk) Social History Tobacco Use Types [...] Telephone Encounter - Ruperto Mcclellan MD - 09/08/2013 11:19 AM EDT Called patient back. The pain is in the knee joint. It could be anything. If pain continues to be anissue, suggested making an appointment to see his PCP as it could be anything. Telephone Encounter - Ada Alexandre - 09/08/2013 10:56 AM EDT The patient called stated that this is day #3 of right knee pain and difficulty using his knee. He has had to use his hands to move his knee. Please [phone]. documented in this encounter Plan of Treatment Upcoming Encounters Date Type Specialty Care Team Description 06/19/2022 Office Visit Rheumatology Richi Blackmon MD [facility] DR RHEUMATOLOGY [place], [place] [address] (Wo rk) Scheduled Procedures Name Priority Associated Diagnoses Date/Time EGD, UPPER GI ENDOSCOPY Family hx of colon cance r COLONOSCOPY, DIAGNOSTIC Family hx of colon cance r documented as of this encounter Visit Diagnoses Not on filedocumented in this encounter Care Teams Metallurgical Analyst Relationship Specialty Start Date End Date Jazmine Baer MD PCP - General 11/07/10 [address] [place] [address] documented as of this encounter
--- OUTSIDE RECORDS SUMMARY | 2022-04-11 10:56 | XMS_ITS | Encounter Summary ---
:1960 Author Organization [facility] [place] [address] Care Team Providers Name Role Phone Jazmine Baer MD Primary Care Provider Reason for Visit Reason Onset Date Comments Prior Authorization 07/09/2013 xifaxan Encounter Details Date Type Department Care Team Description 07/09/2013 Telephone Gastroenterology at [facility] Cici Grimaldo, Prior Authorization [facility] Hilda shafer RN (xifaxan) [place] [address] Social History Tobacco Use Types Packs/Day [...] this encounter Miscellaneous Notes Telephone Encounter - Cici Grimaldo, [facility] - 07/09/2013 3:48 PM EST Medication: xifaxan Dosage: 550 mg Frequency & Route: 1 po bid Insurance & Phone #: [place] [phone] ID #: [id number] Notes: PA approved for 1 year. Pt informed. documented in this encounter Plan of Treatment Upcoming Encounters Date Type Specialty Care Team Description 06/19/2022 Office Visit Rheumatology Richi Blackmon MD [facility] DR RHEUMATOLOGY [place], [place] [address] (Wo rk) Scheduled Procedures Name Priority Associated Diagnoses Date/Time EGD, UPPER GI ENDOSCOPY Family hx of colon cance r COLONOSCOPY, DIAGNOSTIC Family hx of colon cance r documented as of this encounter Visit Diagnoses Not on filedocumented in this encounter Care Teams Buffet Manager Relationship Specialty Start Date End Date Jazmine Baer MD PCP - General 11/07/10 [address] [place] [address] documented as of this encounter
--- OUTSIDE RECORDS SUMMARY | 2022-04-11 10:56 | XMS_ITS | Encounter Summary ---
:1960 Author Organization [facility] [place] [address] Care Team Providers Name Role Phone Jazmine Baer MD Primary Care Provider Encounter Details Date Type Department Care Team Description 01/27/2014 Hospital Encounter MRI at [facility] [place] [address] Social History Tobacco Use Types Packs/Day [...] Start Date End Date warfarin (COUMADIN) 5 mg Take 5 mg by mouth 0 06/30/2014 tablet daily. omeprazole (PRILOSEC) 40 Take 1 capsule by 90 capsule 3 08/0912/25/2017 mg capsule mouth daily. indomethacin (INDOCIN) Take 25 mg by mouth 2 0 10/13/2015 25 mg capsule times daily (with meals). As needed rifaximin (XIFAXIN) 550 Take 1 tablet by 60 tablet 11 201302/16/2014 mg Tab tablet mouth 2 times daily. ondansetron (ZOFRAN) 4 Take 1 tablet by 20 tablet 3 014 02/29/2020 mg tablet mouth as needed. trimethobenzamide Take 1 capsule by 90 capsule 12 06/18/2013 02/16/2014 (TIGAN) 300 mg mouth 3 times daily capsuleIndications: as needed. Nausea and vomiting INSULIN LISPRO (HUMALOG Inject 12 Units 0 07/13/2014 SUBQ) subcutaneously 3 times daily (with meals). insulin glargine Inject 75 Units 0 08/2014 (LANTUS) 100 unit/mL subcutaneously vial injection nightly. lisinopril-hydrochloroth Take 2 tablets by 0 05/02/2021 iazide mouth daily. (PRINZIDE;ZESTORETIC) 20-12.5 mg per tablet atenolol (TENORMIN) 100 Take 50 mg by mouth 0 10/13/2015 mg tablet daily. traMADol (ULTRAM) 50 mg Take 100 mg by mouth 0 01/14/2015 tablet 2 times daily. documented as of this encounter Plan of Treatment Upcoming Encounters Date Type Specialty Care Team Description 06/19/2022 Office Visit Rheumatology Richi Blackmon MD [facility] ER DR RHEUMATOLOGY [place], [place] [address] (Wo rk) Scheduled Procedures Name Priority Associated Diagnoses Date/Time EGD, UPPER GI ENDOSCOPY Family hx of colon cance r COLONOSCOPY, DIAGNOSTIC Family hx of colon cance r documented as of this encounter Procedures Procedure Name Priority Date/Time Associated Diagnosis Comme nts MRI ABDOMEN WWO Routine 01/27/2014 12:05 PM Resul ts for this CONTRAST EDT procedure are i n the results section. documented in this encounter Results MRI abdomen with/WO contrast (01/27/2014 12:05 PM EDT) Anatomical Region Laterality Modality Abdomen Magnetic Resonance Specimen (Source) Anatomical Collection Method Collection Time Re ceived Time Location / / Volume Laterality 01/27/2014 12:05 PM EDT Narrative 01/27/2014 2:22 PM EDT Examination MR ABDOMEN W/WO GADO Clinical History cirrhosis, HCC surveillance, hemangioma, pancreatic lesion Comparison 07/07/2013. Technique MRI of the abdomen was performed prior t o and following intravenous administration of 20 mL of Magnevist. ?? Findings Liver is at the upper limits of normal i n size, measuring 20 cm in craniocaudal extent. ??Smooth contour. No loss of sig nal on out of phase images to indicate fatty infiltration. No surface nodularit y. Solitary focal liver lesion is as follows: ?? Location: ??Anterior segment right lobe inferiorly. Size: ??16 mm. T2: ??Smoothly marginated, lobular, hype rintense. T1: ??Hypo intense. Post gadolinium: ??Irregular peripheral partial enhancement with progressive fill in. ??At the 5 minutes images, it i s partially isointense to liver, however complete fill-in does not occur. Ability: no change from prior ?? No additional liver lesions are present. Portal and hepatic veins are widely patent. ??Gallbladder is mildly distende d without wall thickening or adjacent fluid. ??Layering calculi are seen depen dently. ??No intra or extrahepatic biliary ductal dilatation. Spleen is mildly enlarged, measuring 16 cm in maximal dimension, marginally increased from prior. ??Adrenal glands u nremarkable. ??Stable 8 mm circumscribed T2 hyperintense nonenhancing focus in th e body of the pancreas. ??2 right upper pole and a single left renal lower pole lesion which are T2 hyperintense and do not enhance post-contrast are compatible with renal cysts. ??No interval change. No basilar pleural effusion. ??No ascite s. ??No abdominal lymphadenopathy. ??No bowel abnormality or mesenteric inflamma tion. ??Normal bone marrow signal. Impression ? 1. Stable solitary hepatic lesion with imaging features most consistent with hemangioma. ? 2. Mild splenomegaly, marginally increased from prior. ? 3. Cholelithiasis without acute c holecystitis. ? 4. Stable 9 mm cystic focus in th e body of the pancreas with differential including cyst, pseudocyst, and side bra formerly [facility] IPMN. ??Recommend followup MRCP in 6-12 months. Procedure Note Rosalia Casillas MD - 01/27/2014Formatt ing of this note might be different from the original. Examination MR ABDOMEN W/WO GADO Clinical History cirrhosis, HCC surveillance, hemangioma, pancreatic lesion Comparison 07/07/2013. Technique MRI of the abdomen was performed prior t o and following intravenous administration of 20 mL of Magnevist. Findings Liver is at the upper limits of normal i n size, measuring 20 cm in craniocaudal extent. Smooth contour. No loss of signa l on out of phase images to indicate fatty infiltration. No surface nodularit y. Solitary focal liver lesion is as follows: Location: Anterior segment right lobe in feriorly. Size: 16 mm. T2: Smoothly marginated, lobular, hyperi ntense. T1: Hypo intense. Post gadolinium: Irregular peripheral pa rtial enhancement with progressive fill in. At the 5 minutes images, it is partially isointense to liver, however complete fill-in does not occur. Ability: no change from prior No additional liver lesions are present. Portal and hepatic veins are widely patent. Gallbladder is mildly distended without wall thickening or adjacent fluid. Layering calculi are seen depende ntly. No intra or extrahepatic biliary ductal dilatation. Spleen is mildly enlarged, measuring 16 cm in maximal dimension, marginally increased from prior. Adrenal glands unr emarkable. Stable 8 mm circumscribed T2 hyperintense nonenhancing focus in th e body of the pancreas. 2 right upper pole and a single left renal lower pole lesion which are T2 hyperintense and do not enhance post-contrast are compatible with renal cysts. No interval change. No basilar pleural effusion. No ascites. No abdominal lymphadenopathy. No bowel abnormality or mesenteric inflamma tion. Normal bone marrow signal. Impression 1. Stable solitary hepatic lesion with imaging features most consistent with hemangioma. 2. Mild splenomegaly, marginally increa sed from prior. 3. Cholelithiasis without acute cholecy stitis. 4. Stable 9 mm cystic focus in the body of the pancreas with differential including cyst, pseudocyst, and side bra formerly [facility] IPMN. Recommend followup MRCP in 6-12 months. Joann Giordano APRN IMG MRI ORDERABLES documented in this encounter Visit Diagnoses Not on filedocumented in this encounter Administered Medications Inactive Administered Medications - up to 3 most recent administrations Medication Order MAR Action Action Date Dose Rate Site gadopentetate dimeglumine Given 01/27/2014 11:45 AM EDT 20 mLs (MAGNEVIST) injection 0.2 mL/kg 0.2 mL/kg/dose, Intravenous, ONCE PRN, 1 dose, Starting on Sat01/27/14 at 1216, Until Sat01/27/14 at 1145, Per Protocol, Routine documented in this encounter Care Teams Candy Rolling Machine Operator Relationship Specialty Start Date End Date Jazmine Baer MD PCP - General 11/07/10 [address] [place] [address] documented as of this encounter
--- OUTSIDE RECORDS SUMMARY | 2022-04-11 10:56 | XMS_ITS | Encounter Summary ---
:1960 Author Organization [facility] [place] [address] Care Team Providers Name Role Phone Jazmine Baer MD Primary Care Provider Encounter Details Date Type Department Care Team Description 01/27/2014 Hospital Encounter Laboratory PalaciosFermín wilson Cirrhosis of liver; [facility] MD Robles Diabetes mellitus; [facility] Liver lesion [place], [place] CENTER [address] GASTROENTEROLOGY [phone] [place] [address] Social History Tobacco Use Types Packs/Day Years [...] [facility] ER DR RHEUMATOLOGY [place], [place] [address] (Wo rk) Scheduled Orders Name Type Priority Associated Diagnoses Order S chedule AFP tumor marker Lab Routine Liver lesion 1 Occurrenc es starting 01/27/2014 Comprehensive metabolic Lab Routine Liver lesion 1 Oc currences starting panel (non-fasting) 01/28/20 14 Prothrombin Time Lab Routine Liver lesion 1 Occurrenc es starting 01/27/2014 CBC (with Diff) Lab Routine Cirrhosis of liver 1 Occu rrences starting 01/27/2014 Comprehensive metabolic Lab Routine Cirrhosis of live r 1 Occurrences starting panel (non-fasting) 01/28/20 14 Prothrombin Time Lab Routine Cirrhosis of liver 1 Occ urrences starting 01/27/2014 AFP tumor marker Lab Routine Cirrhosis of liver 1 Occ urrences starting 01/27/2014 Scheduled Procedures Name Priority Associated Diagnoses Date/Time EGD, UPPER GI ENDOSCOPY Family hx of colon cance r COLONOSCOPY, DIAGNOSTIC Family hx of colon cance r documented as of this encounter Procedures Procedure Name Priority Date/Time Associated Comments Diagnosis HEMOGRAM Routine 01/27/2014 9:01 AM Cirrhosis of liver Results for this EDT Diabetes mellitus procedure are in the results section. DIFFERENTIAL, Routine 01/27/2014 9:01 AM Cirrhosis of liver Results for this AUTOMATED EDT Diabetes mellitus procedure are in the results section. ZINC Routine 01/27/2014 9:01 AM Cirrhosis of liver Results for this EDT Diabetes mellitus procedure are in the results section. AFP TUMOR MARKER Routine 01/27/2014 9:01 AM Cirrhosis of liver Results for this EDT Diabetes mellitus procedure are in the results section. PROTHROMBIN TIME Routine 01/27/2014 9:01 AM Cirrhosis of liver Results for this EDT Diabetes mellitus procedure are in the results section. CBC (WITH DIFF) Routine 01/27/2014 9:01 AM Cirrhosis of liver EDT Diabetes mellitus COMPREHENSIVE Routine 01/27/2014 9:01 AM Cirrhosis of liver Results for this METABOLIC PANEL EDT Diabetes mellitus procedu re are in (NON-FASTING) the results section. documented in this encounter Results Differential, Automated (01/27/2014 9:01 AM EDT) P athologist Signature Neutrophils % 57.9 34.0 - CERNER 71.0 % MILLENNIUM Neutr Abs (ANC) 2.09 1.50 - CERNER 6.30 MILLENNIUM x10(3)/mcL Lymphocytes % 29.9 19.0 - CERNER 53.0 % MILLENNIUM Lymphocytes Abs 1.1 1.0 - 3.6 CERNER x10(3)/mcL MILLENNIUM Monocytes % 8.9 4.0 - 13.0 CERNER % MILLENNIUM Monocyte Abs 0.3 0.2 - 1.0 CERNER x10(3)/mcL MILLENNIUM Eosinophils % 2.5 0.0 - 7.0 CERNER % MILLENNIUM Eosinophils Abs 0.1 0.0 - 0.5 CERNER x10(3)/mcL MILLENNIUM Basophils % 0.8 0.0 - 2.0 CERNER % MILLENNIUM Basophils [...] Location / / Volume Laterality Blood specimen 01/27/2014 9:01 AM 014 9:11 (specimen) EDT AM EDT Resulting Agency Comment Spec In Lab Fermín Palacios MD HEMATOLOGY ORDERABLES Performing Organization Address City/State/ZIP Code Phon e Number [place] [phone] CERNER MILLENNIUM (ABNORMAL) Hemogram (01/27/2014 9:01 AM EDT) P athologist Signature WBC 3.6 (L) 4.0 - 10.0 CERNER x10(3)/mcL MILLENNIUM RBC 3.51 (L) 4.63 - CERNER 6.08 MILLENNIUM x10(6)/mcL Hemoglobin 9.9 (L) 13.7 - CERNER 17.5 gm/dL MILLENNIUM Hematocrit 30.3 (L) 40.0 - CERNER 51.0 % MILLENNIUM MCV 86.3 79.0 - CERNER 92.0 fL MILLENNIUM MCH 28.2 25.6 - CERNER 32.2 pg MILLENNIUM MCHC 32.7 32.0 - CERNER 36.5 gm/dL MILLENNIUM Platelets 121 (L) 145 - 370 CERNER x10(3)/mcL MILLENNIUM RDWSD 43.2 35.0 - CERNER 46.0 fL MILLENNIUM RDWCV 13.8 10.9 - CERNER 14.4 % MILLENNIUM MPV 11.1 9.0 - 12.0 CERNER fL MILLENNIUM Specimen Anatomical Collection Method Collection Time Receive d Time (Source) Location / / Volume Laterality Blood specimen 01/27/2014 9:01 AM 014 9:11 (specimen) EDT AM EDT Resulting Agency Comment Spec In Lab Fermín Palacios MD HEMATOLOGY ORDERABLES Performing Organization Address [facility] Phon e Number [address] [facility] AFP tumor marker (01/27/2014 9:01 AM EDT) P athologist Signature AFP 5.1 <=8.3 ng/mL [facility] Specimen Anatomical Collection Method Collection Time Receive d Time (Source) Location / / Volume Laterality Blood specimen 01/27/2014 9:01 AM 014 9:11 (specimen) EDT AM EDT Resulting Agency Comment Spec In Lab Fermín Palacios MD CHEMISTRY ORDERABLES Performing Organization Address [facility] Phon e Number [address] [facility] (ABNORMAL) Prothrombin Time (01/27/2014 9:01 AM EDT) P athologist Signature PT 31.4 (H) 12.5 - 15.5 [facility] Comment: [facility] Transfusion Committee Guidelines: I NR less than 2.0, PTT less than OR equal to 43.5 seconds, or Fibrinogen gre ater than or equal to 100 mg/dl indicate adequate procoagulant activity for hemostasis in patients without underlying bleeding disorders. INR 2.8 (H) 0.9 - 1.1 [facility] Specimen Anatomical Collection Method Collection Time Receive d Time (Source) Location / / Volume Laterality Blood specimen 01/27/2014 9:01 AM 014 9:11 (specimen) EDT AM EDT Resulting Agency Comment Spec In Lab Fermín Palacios MD HEMATOLOGY ORDERABLES Performing Organization Address [facility] Phon e Number [address] [facility] (ABNORMAL) Comprehensive metabolic panel (non-fasting) (01/27/2014 9:01 AM EDT) P athologist Signature Glucose Lvl 261 (H) 60 - 199 CERNER mg/dL MILLENNIUM Comment: Diabetes: >=200 mg/dL plus symp toms BUN 17 10 - 20 mg/dL CERNER MILLENNIU M Creatinine 1.11 0.80 - 1.50 mg/dL CERNER MILL ENNIUM Comment: Please note that the pediatric reference intervals supplied above were not validated at [facility]. Results from pediatri c patients should be interpreted in conjunction to the patient's age, height and muscle mass. Sodium 135 135 - 145 mmol/L CERNER ELISE NIUM Potassium 4.4 3.5 - 5.0 mmol/L CERNER ELISE NIUM [...] - 15 mmol/L CERNER MILLENNIU M Calcium 9.2 8.5 - 10.5 mg/dL CERNER ELISE NIUM Total Protein 7.6 6.4 - 8.3 gm/dL CERNER MIL LENNIUM Albumin 3.6 3.2 - 5.2 gm/dL CERNER MILLENN IUM AST 54 (H) 0 - 39 unit/L CERNER MILLENNIU M ALT 43 0 - 55 unit/L CERNER MILLENNIU M Alk Phos 114 40 - 120 unit/L CERNER MILLENN IUM [...] the following links into your internet browser. [email or web address] Specimen Anatomical Collection Method Collection Time Receive d Time (Source) Location / / Volume Laterality Blood specimen 01/27/2014 9:01 AM 014 9:11 (specimen) EDT AM EDT Resulting Agency Comment Spec In Lab Fermín Palacios MD CHEMISTRY ORDERABLES Performing Organization Address City/[facility]/ZIP Code Phon e Number [address] CERNER MILLENNIUM Zinc (01/27/2014 9:01 AM EDT) athologist Signature Zinc 0.66 0.66 - 1.10 CERNER mcg/mL MILLENNIUM Comment: Test Performed by: [place] [address] Engine Monitor: Luis byers III, M.D. Specimen Anatomical Collection Method Collection Time Receive d Time (Source) Location / / Volume Laterality Blood specimen 01/27/2014 9:01 AM 014 (specimen) EDT 11:15 AM EDT Resulting Agency Comment Spec In Lab Fermín Palacios MD CHEMISTRY ORDERABLES Performing Organization Address City/[facility]/ZIP Code Phon e Number [address] CERNER MILLENNIUM documented in this encounter Visit Diagnoses Diagnosis Cirrhosis of liver Cirrhosis of liver without mention of al cohol Diabetes mellitus Type II or unspecified type diabetes eugenie litus without mention of complication, not stated as uncontrolled Liver lesion Other specified disorders of liver documented in this encounter Care Teams Rail Switch Operator Relationship Specialty Start Date End Date Jazmine Baer MD PCP - General 11/07/10 [address] [place] [address] documented as of this encounter
--- OUTSIDE RECORDS SUMMARY | 2022-04-11 10:56 | XMS_ITS | Encounter Summary ---
:1960 Author Organization [facility] [place] [address] Care Team Providers Name Role Phone Jazmine Baer MD Primary Care Provider Encounter Details Date Type Department Care Team Description 07/08/2013 Orders Only Gastroenterology at [facility] Bethanie Gorman, Abnormal findings on [facility] Hilda shafer [place] [address] [facility] (Primary Dx) [phone] [place] [address] Social History Tobacco Use Types Packs/Day Years [...] Office Visit Rheumatology Richi Blackmon MD [facility] ER RHEUMATOLOGY DEP [place], [place] [address] (Wo rk) Scheduled Procedures Name Priority Associated Diagnoses Date/Time EGD, UPPER GI ENDOSCOPY Family hx of colon cance r COLONOSCOPY, DIAGNOSTIC Family hx of colon cance r documented as of this encounter Visit Diagnoses Diagnosis Abnormal findings on imaging test - Prim mamadou Other nonspecific (abnormal) findings on radiological and other examinations of body structure documented in this encounter Care Teams Replanting Machine Crewman Relationship Specialty Start Date End Date Jazmine Baer MD PCP - General 11/07/10 [address] [place] [address] documented as of this encounter
--- OUTSIDE RECORDS SUMMARY | 2022-04-11 10:56 | XMS_ITS | Encounter Summary ---
:1960 Author Organization [facility] [place] [address] Care Team Providers Name Role Phone Jazmine Baer MD Primary Care Provider Encounter Details Date Type Department Care Team Description 07/22/2013 Telephone Gastroenterology at [facility] Joann Giordano, [facility] [place] [address] [facility] [phone] GASTROENTEROLOGY [place], [place] [address] (Wo rk) Social History Tobacco [...] Telephone Encounter - Joann Giordano APRN - 07/22/2013 4:59 PM EST Abd MRI 07/07/13: Impression 1. 16 mm lesion within the anterior segment of the right hepatic lobe corresponds with the hyperechoic finding on recent ultrasound. Constellation of findings is compatible with a hemangioma. 2. Bilateral probable renal cyst. 3. Cholelithiasis. Trace pericholecystic is fluid is noted, however there are no inflammatory changes to indicate acute cholecystitis. Correlation with any clinical symptoms in the right upper quadrant is recommended. 4. Incidental unexpected finding of a 9 mm cystic focus in the body of the pancreas. The differential diagnosis includes cyst, pseudocyst, or side branch IPMN. Per ACR incidental findings committee recommendations, a 1 year followup MRI/MRCP is recommended. [facility] reviewed pt's MRI on 07/21/13. Liver lesion is compatible with hemangioma. Plan is to repeat MRI in 6 months and watch the pancreatic lesion as well. I called and spoke with pt. He verbalized understanding and agreement to the plan of care. documented in this encounter Plan of Treatment Upcoming Encounters Date Type Specialty Care Team Description 06/19/2022 Office Visit Rheumatology Richi Blackmon MD [facility] DR RHEUMATOLOGY [place], [place] [address] (Wo rk) Scheduled Procedures Name Priority Associated Diagnoses Date/Time EGD, UPPER GI ENDOSCOPY Family hx of colon cance r COLONOSCOPY, DIAGNOSTIC Family hx of colon cance r documented as of this encounter Visit Diagnoses Diagnosis Cirrhosis of liver - Primary Cirrhosis of liver without mention of al cohol documented in this encounter Care Teams Geographic Information Systems Engineer Relationship Specialty Start Date End Date Jazmine Baer MD PCP - General 11/07/10 [address] [place] [address] documented as of this encounter
--- OUTSIDE RECORDS SUMMARY | 2022-04-11 10:56 | XMS_ITS | Encounter Summary ---
:1960 Author Organization [facility] [place] [address] Care Team Providers Name Role Phone Jazmine Baer MD Primary Care Provider Encounter Details Date Type Department Care Team Description 01/27/2014 Follow-Up Gastroenterology at [facility] Bethanie Gorman, GI problem (Primary [facility] Hilda shafer APRN Dx) [place] [address] [place] [address] [place] [address] Social History Tobacco Use Types Packs/Day [...] Sign Reading Time Taken Comments Blood Pressure 172/75 01/27/2014 12:54 PM EDT Pulse 62 01/27/2014 12:54 PM EDT Temperature - - Respiratory Rate 20 01/27/2014 12:54 PM EDT Oxygen Saturation - - Inhaled Oxygen Concentration - - Weight 113.4 kg (250 lb) 01/27/2014 12:54 PM EDT Height 172.7 cm (5' 8) 01/27/2014 12:54 PM EDT Body Mass Index 38.01 01/27/2014 12:54 PM EDT documented in this encounter Progress Notes Bethanie Gorman, DIPPER FISH - 01/27/2014 12:58 PM EDT Subjective: Patient ID: Bucky Acevedo is a 53 y.o. male. HPI Comments: He reports that nausea was good up until this past week. Had not required Zofran or Tigan in months. The nausea tends to be worse upon awakening. Takes Zofran 4 mg qd with good effect. Has required Zofran two times this past week. No vomiting. No nocturnal symptoms. Unable to identify any specific triggers. No new medications or recent GI illness. Denies indigestion, early satiety or post prandial fullness. Blood sugars have ranging from 150-160 and one week there were in the 120's. HbA1C 7.2. Durand's esophagus/GERD well controlled on Prilosec 40 mg qd. No nocturnal symptoms. No dysphagia, odynophagia or chest pain. He reports no change in bowel habits. Stools are soft. Has a bowel movement every day. Admits to periodic straining and incomplete evacuation of stool. No blood in stool, rectal bleeding, rectal or anal pain. Appetite good. Weight stable. Remainder of ROS unremarkable. Review of Systems Constitutional: Negative. HENT: Negative. Respiratory: Negative. Cardiovascular: Negative. Gastrointestinal: See HPI Neurological: Negative. Psychiatric/Behavioral: Negative. Allergies Allergen Reactions ??? Eenpalj-Jli-Vgl Reductase Inhibitors Myopathy Current Outpatient Prescriptions on File Prior to Visit Medication Sig Dispense Refill ??? omeprazole (PRILOSEC) 40 mg capsule Take 1 capsule by mouth daily. 90 capsule 3 ??? indomethacin (INDOCIN) 25 mg capsule Take 12.5 mg by mouth 2 times daily (with meals). ??? rifaximin (XIFAXIN) 550 mg Tab tablet Take 1 tablet by mouth 2 times daily. 60 tablet 11 ??? ondansetron (ZOFRAN) 4 mg tablet Take 1 tablet by mouth as needed. 20 tablet 3 ??? trimethobenzamide (TIGAN) 300 mg capsule Take 1 capsule by mouth 3 times daily as needed. 90 capsule 12 ??? INSULIN LISPRO (HUMALOG SUBQ) Inject 18 [...] mg by mouth 2 times daily. ??? [DISCONTINUED] enoxaparin (LOVENOX) 120 mg/0.8 mL injection Inject subcutaneously every 12 hours. ??? [DISCONTINUED] morphine (MSIR) 15 mg tablet Take 15 mg by mouth nightly as needed. ??? [DISCONTINUED] metFORMIN (GLUCOPHAGE) 500 mg tablet Take 500 mg by mouth 2 times daily (with meals). ??? [DISCONTINUED] immune globulin,hum,,capr,IGG, (GAMUNEX) 10 % Inj infusion Inject into the vein. Receiving IVIG treatments for 2 consecutive days at the start of each month. Current Facility-Administered Medications on File Prior to Visit Medication Dose Route Frequency Provider Last Rate Last Dose ??? gadobutrol (GADAVIST) 10 mmol/10 mL (1 mmol/mL) injection 11.34 mL 0.1 mL/kg Intravenous Once PRN Clifton Mijares MD PMHx: Patient Active Problem List Diagnosis Code ??? Myopathy 359.9 ??? Nausea and vomiting 787.01 ??? Diabetes mellitus type II 250.00 ??? Hepatosplenomegaly 571.8 ??? Durand's esophagus 530.85 ??? Nonalcoholic steatohepatitis (HORTON) 571.8 ??? Anemia 285.9 Past Surgical History Procedure Date ??? Umbilical hernia repair ??? Ureter stent placement renal stent ??? Tunneled venous port placement Jun 2012 ??? Tunneled venous port placement ??? Bone marrow aspiration w/bx through same incision/site 05/28/2013 ([facility]) BONE MARROW ASP PERFORMED W/BX THRU BX INCISION performed by Alem Evangelista MD at [facility] ??? Bone marrow bx, needle/trocar 05/28/2013 ([facility]) BONE MARROW,BIOPSY performed by Alem Evangelista MD at [facility] ??? Muscle biopsy 2008 ??? Lithotripsy ??? Tunneled venous port placement 2011 ??? Colonoscopy, diagnostic 07/21/2013 COLONOSCOPY, DIAGNOSTIC performed by Royer Temple MD at [facility] ??? Endoscopic us exam, esoph 07/21/2013 UPPER EUS- ENDOSCOPIC ULTRASOUND performed by Royer Temple MD at [facility] ??? Upper gi endoscopy, biopsy 07/21/2013 UPPER GASTROINTESTINAL ENDOSCOPY,WITH BIOPSY SINGLE OR MULTIPLE performed by Royer Temple MD at [facility] Recent tests: *Colonoscopy 07/21/2013 [facility]: hemorrhoids found on perianal exam; one 2 mm polyp in the sigmoid colon; the examined portion of the ileum was normal. Bx: hyperplastic polyp. *EGD 07/21/2013 [facility]: normal upper third of esophagus and middle third of esophagus; esophageal mucosal changes classified as Durand's stage C1-M2 per [place] criteria; small hiatus hernia; gastritis; normal examined duodenum. Bx: distal esophagus~intestinal metaplasia, no dysplasia. Stomach~mild mild chronic gastritis. No H. Pylori. *EUS 07/21/2013 [facility]: 10mm pancreas body likely cystic lesion s/p FNA; 10mm pancreas body/tail lesions/p FNA. *SBFT 05/13/2013: Preliminary marketing technology coordinator view of the abdomen reveals a normal bowel gas pattern. The small bowel is normal in caliber. There is no evidence of mucosal fold thickening, stricture, nodularity or evidence of bowel wall thickening. Small bowel transit time is normal. *GES 04/15/2013: normal gastric emptying. Quantitative Analysis Two hours: 22% remains in the stomach(normal <60%); Four hours: 1% remains in the stomach (normal <10%) *Colonoscopy 10/2012: chunks of material that clogged the scope on multiple occasions. Cecum irrigated for several minutes. Normal terminal ileum that was intubated. Large colon and chunks of material throughout. Diverticulosis. Recommended repeat colonoscopy in one year. *EGD 10/2012: Short segment Durand's esophagus; gastritis and duodenitis noted at duodenal bulb but second/third portion of duodenum normal. Vital Signs: BP 172/75; P 62; Wt 250 lbs; Ht 5'8 Objective: Physical Exam Vitals reviewed. Constitutional: He is oriented to person, place, and time. He appears well- developed and well-nourished. No distress. HENT: Head: Normocephalic and atraumatic. Mouth/Throat: Oropharynx is clear and moist. No oropharyngeal exudate. Eyes: Pupils are equal, round, and reactive to light. Neck: Normal range of motion. Neck supple. Cardiovascular: Normal rate, regular rhythm, normal heart sounds and intact distal pulses. Exam reveals no gallop and no friction rub. No murmur heard. Pulmonary/Chest: Effort normal and breath sounds normal. No respiratory distress. He has no wheezes.He has no rales. He exhibits no tenderness. Abdominal: Soft. He exhibits no distension and no mass. There is no tenderness. There is no rebound and no guarding. Obese abdomen. No succussion splash. Lymphadenopathy: He has no cervical adenopathy. Neurological: He is alert and oriented to person, place, and time. No cranial nerve deficit. Skin: Skin is warm and dry. No rash noted. He is not diaphoretic. No erythema. No pallor. Psychiatric: He has a normal mood and affect. His behavior is normal. Judgment and thought content normal. Assessment and Plan: #Durand's esophagus: asymptomatic on Prilosec 40 mg qd. Discussed continuing with Prilosec 40 mg qd. GERD diet and lifestyle modifications. Repeat EGD in 3 years. #Pancreatic cyst: repeat MRI abdomen in 12 months (around 07/2014) and will contact patient to schedule. #N/V: was improved until this past week. Discussed that if symptoms worsen then consider repeating GES for ?gastroparesis. Can use Zofran and Tigan prn. Consider gastroparesis diet. #HORTON: defer management to Kajal Giordano APRN. MRI abdomen in 6 months. Follow up with Kajal Giordano APRN as previously scheduled. #Colon cancer screening: repeat in 10 years. I did my best to answer all of his questions. The following plan was formulated. Plan: 1. Prilosec 40 mg qd 2. Zofran 4 mg TID prn 3. Tigan 300 mg TID prn 4. Follow up prn Patient understands and is agreeable to the above plan. Written instructions provided. Bethanie Gorman APRN Section of Gastroenterology [place] [address] documented in this encounter Plan of Treatment Upcoming Encounters Date Type Specialty Care Team Description 06/19/2022 Office Visit Rheumatology Richi Blackmon MD [facility] [address] RHEUMATOLOGY [place], [place] [address] (Wo rk) Scheduled Procedures Name Priority Associated Diagnoses Date/Time EGD, UPPER GI ENDOSCOPY Family hx of colon cance r COLONOSCOPY, DIAGNOSTIC Family hx of colon cance r documented as of this encounter Visit Diagnoses Diagnosis GI problem - Primary Other symptoms involving digestive syste m documented in this encounter Care Teams Document Management Analyst Relationship Specialty Start Date End Date Jazmine Baer MD PCP - General 11/07/10 [address] [place] [address] documented as of this encounter
--- OUTSIDE RECORDS SUMMARY | 2022-04-11 10:56 | XMS_ITS | Encounter Summary ---
:1960 Author Organization [facility] [place] [address] Care Team Providers Name Role Phone Jazmine Baer MD Primary Care Provider Encounter Details Date Type Department Care Team Description 07/07/2013 Telephone Gastroenterology at [facility] Mani Lopez MD [facility] [place] [address] GASTROENTEROLOGY DEPT [phone] [place] [address] (Wo rk) Social History Tobacco Use Types [...] this encounter Miscellaneous Notes Telephone Encounter - Mani Lopez MD - 07/07/2013 5:16 PM EST Called from lab critical value. Glucose 500. Pt known diabetic. Tried to call. Left VM asking him tocall back and/or call his PCP to discuss. documented in this encounter Plan of Treatment Upcoming Encounters Date Type Specialty Care Team Description 06/19/2022 Office Visit Rheumatology Richi Blackmon MD [facility] DR RHEUMATOLOGY [place], [place] [address] (Wo rk) Scheduled Procedures Name Priority Associated Diagnoses Date/Time EGD, UPPER GI ENDOSCOPY Family hx of colon cance r COLONOSCOPY, DIAGNOSTIC Family hx of colon cance r documented as of this encounter Visit Diagnoses Not on filedocumented in this encounter Care Teams Textile Conservator Relationship Specialty Start Date End Date Jazmine Baer MD PCP - General 11/07/10 [address] [place] [address] documented as of this encounter
--- OUTSIDE RECORDS SUMMARY | 2022-04-11 10:56 | XMS_ITS | Encounter Summary ---
:1960 Author Organization [facility] [place] [address] Care Team Providers Name Role Phone Jazmine Bare MD Primary Care Provider Encounter Details Date Type Department Care Team Description 07/07/2013 Hospital Encounter MRI at [facility] Abnormal [facility] (ultrasou nd) [place] [address] Social History Tobacco Use Types Packs/Day [...] - - Temperature - - Respiratory Rate - - Oxygen Saturation - - Inhaled Oxygen Concentration - - Weight 113.4 kg (250 lb) 07/07/2013 11:17 AM EST Height - - Body Mass Index 39.16 06/18/2013 2:40 PM EST documented in this encounter Medications at Time of Discharge Medication Sig Dispensed Refills Start Date End Date ciprofloxacin (CIPRO) Take 1 tablet by 6 tablet 0 07/21/19 14 07/24/2013 500 mg tablet mouth 2 times daily for 3 days. rifaximin (XIFAXIN) 550 Take 1 tablet by 60 tablet 11 201302/16/2014 mg Tab tablet mouth 2 times daily. omeprazole (PRILOSEC) 40 Take 1 capsule by 30 capsule 12 02/201409/03/2013 mg capsule mouth daily. ondansetron (ZOFRAN) 4 [...] mouth daily. (PRINZIDE;ZESTORETIC) 20-12.5 mg per tablet metFORMIN (GLUCOPHAGE) Take 500 mg by mouth 0 01/27/2014 500 mg tablet 2 times daily (with meals). atenolol (TENORMIN) 100 Take 50 mg by mouth 0 10/13/2015 mg tablet daily. immune Inject into the vein. 0 globulin,hum,,capr,IGG, Receiving IVIG (GAMUNEX) 10 % Inj treatments for 2 infusion consecutive days at the start of each month. folic acid (FOLVITE) 1 Take 1 mg by mouth 0 11/04/2013 mg tablet daily. traMADol (ULTRAM) 50 mg Take 100 mg by mouth 0 01/14/2015 tablet 2 times daily. documented as of this encounter Miscellaneous Notes Miscellaneous - Provider, Scanning - 07/21/2013 11:13 AM EST documented in this encounter Plan of Treatment Upcoming Encounters Date Type Specialty Care Team Description 06/19/2022 Office Visit Rheumatology Richi Blackmon MD [facility] ER DR RHEUMATOLOGY [place], [place] [address] (Wo rk) Scheduled Procedures Name Priority Associated Diagnoses Date/Time EGD, UPPER GI ENDOSCOPY Family hx of colon cance r COLONOSCOPY, DIAGNOSTIC Family hx of colon cance r documented as of this encounter Procedures Procedure Name Priority Date/Time Associated Diagnosis Comme nts MRI ABDOMEN WWO Routine 07/07/2013 11:52 AM Abnormal US Resul ts for this CONTRAST EST (ultrasound) of procedure ar e in abdomen the results section. documented in this encounter Results (ABNORMAL) MRI abdomen with/WO contrast (07/07/2013 11:52 AM EST) Anatomical Region Laterality Modality Abdomen Magnetic Resonance Specimen (Source) Anatomical Collection Method Collection Time Re ceived Time Location / / Volume Laterality 07/07/2013 11:52 AM EST Narrative 07/07/2013 3:10 PM EST Examination MR ABDOMEN W/WO GADO Clinical History Hepatosplenomegaly ?? ? hemangioma on liver per US abd/thrombo cytopenia ?? ? HORTON cirrhosis Comparison Ultrasound 05/27/2013. Technique MRI of the abdomen was performed prior t o and following intravenous administration of 11 mL of Gadavist Findings No basilar pleural effusions. ??No ascit es. ??The liver is normal in size with a smooth contour. No loss of signal on out of phase images to indicate fatty infiltration. A solitary 16 mm hepatic l esion is present in the anterior segment of the right lobe with imaging c haracteristics as follows: T2: ??Lobular, hyperintense ?? T1: ??Hypo intense. Post gadolinium: ??There is peripheral i rregular enhancement with progressive central fill-in of the lesion. ??At the 5 minutes image, it is nearly isointense to liver; 2 focal areas do not completel y fill. Spleen is normal in size and signal inte nsity. ??The adrenal glands are unremarkable. ??Within the body of the p ancreas, there is a 9 mm circumscribed T2 hyperintense, T1 hypointense, nonenha ncing focus. Two T2 hyperintense, nonenhancing foci i n the upper pole of the right kidney and a 2 within the left kidney are most compatible with cysts. Small low attenuation foci layer depende ntly within the gallbladder compatible with calculi. ??A trace amount of perich olecystic fluid is noted. ??No gallbladder wall thickening or adjacent inflammation. At the lowest levels imaged, the upper p ortion of a known umbilical hernia is partially visualized. ??No lymphadenopat hy. Impression ? 1. 16 mm lesion within the anteri or segment of the right hepatic lobe corresponds with the hyperechoic finding on recent ultrasound. ??Constellation of findings is compatible with a hemangi jay. ? 2. Bilateral probable renal cyst. ? 3. Cholelithiasis. ??Trace perich olecystic is fluid is noted, however there are no inflammatory changes to indicate acute cholecystitis. ??Correlation with any clinical symptoms in the right upper quadrant is recommended. ? 4. Incidental unexpected finding of a 9 mm cystic focus in the body of the pancreas. ??The differential diagnosis i ncludes cyst, pseudocyst, or side branch IPMN. ??Per ACR incidental findings comm ittee recommendations, a 1 year followup MRI/MRCP is recommended. Resulting Agency Comment Unexpected Finding Procedure Note Rosalia Casillas MD - 07/07/2013Formatt ing of this note might be different from the original. Examination MR ABDOMEN W/WO GADO Clinical History Hepatosplenomegaly ? hemangioma on liver per US abd/thrombo cytopenia ? HORTON cirrhosis Comparison Ultrasound 05/27/2013. Technique MRI of the abdomen was performed prior t o and following intravenous administration of 11 mL of Gadavist Findings No basilar pleural effusions. No ascites . The liver is normal in size with a smooth contour. No loss of signal on out of phase images to indicate fatty infiltration. A solitary 16 mm hepatic l esion is present in the anterior segment of the right lobe with imaging c haracteristics as follows: T2: Lobular, hyperintense T1: Hypo intense. Post gadolinium: There is peripheral irr egular enhancement with progressive central fill-in of the lesion. At the 5 minutes image, it is nearly isointense to liver; 2 focal areas do not completel y fill. Spleen is normal in size and signal inte nsity. The adrenal glands are unremarkable. Within the body of the prater creas, there is a 9 mm circumscribed T2 hyperintense, T1 hypointense, nonenha ncing focus. Two T2 hyperintense, nonenhancing foci i n the upper pole of the right kidney and a 2 within the left kidney are most compatible with cysts. Small low attenuation foci layer depende ntly within the gallbladder compatible with calculi. A trace amount of perichol ecystic fluid is noted. No gallbladder wall thickening or adjacent inflammation. At the lowest levels imaged, the upper p ortion of a known umbilical hernia is partially visualized. No lymphadenopathy . Impression 1. 16 mm lesion within the anterior seg ment of the right hepatic lobe corresponds with the hyperechoic finding on recent ultrasound. Constellation of findings is compatible with a hemangi jay. 2. Bilateral probable renal cyst. 3. Cholelithiasis. Trace pericholecysti c is fluid is noted, however there are no inflammatory changes to indicate acute cholecystitis. Correlation with any clinical symptoms in the right upper quadrant is recommended. 4. Incidental unexpected finding of a 9 mm cystic focus in the body of the pancreas. The differential diagnosis inc ludes cyst, pseudocyst, or side branch IPMN. Per ACR incidental findings commit suzie recommendations, a 1 year followup MRI/MRCP is recommended. Brian Brunson MD IMG MRI ORDERABLES documented in this encounter Visit Diagnoses Diagnosis Abnormal US (ultrasound) of abdomen Nonspecific (abnormal) findings on radio logical and other examination of abdominal area, including retroperitoneum documented in this encounter Care Teams Knotter Hand Relationship Specialty Start Date End Date Jazmine Baer MD PCP - General 11/07/10 [address] [place] [address] documented as of this encounter
--- OUTSIDE RECORDS SUMMARY | 2022-04-11 10:56 | XMS_ITS | Encounter Summary ---
:1960 Author Organization [facility] [place] [address] Care Team Providers Name Role Phone Jazmine Baer MD Primary Care Provider Encounter Details Date Type Department Care Team Description 01/27/2014 Hospital Encounter MRI at [facility], [address] [place] [address] Social History Tobacco Use Types Packs/Day [...] as of this encounter Progress Notes Ashley Schumacher RN - 01/25/2014 3:34 PM EDT VIR MRI PRE-SEDATION ASSESSMENT NOTE NAME: Bucky Acevedo AGE: 53 y.o. : 1960 Male [phone] (home) No relevant phone numbers on file. PCP LEGAL RECEPTIONIST JAZMINE BAER MD None Allergies Allergen Reactions ??? Vvlpklk-Qdh-Ydu Reductase Inhibitors Myopathy Date/Time of call: January 25, 2014/3:34 PM/ PREVIOUS MRI SCAN?yes HEIGHT: 67 WEIGHT:252# SCHEDULED SCAN:MRI Abdomen wwo Lx SUBJECTIVE: ASSESSMENT: PLAN: PRIOR SCAN DATE/S SEDATION TYPE SUCCESSFUL 07/07/13MRI Abdomen wwo Lx unknown Yes per note 01/27/14MRI Abdomen wwo Lx Patient declining meds stating he is fine in the larger scanners PT WILL ARRIVE 1 HR. BEFORE SCHEDULED SCAN AND HAVE A CONFIGURATION MANAGEMENT SPECIALIST AVAILABLE. PT STATED TO FIREARMS INSPECTOR THAT THE SEDATION WAS EFFECTIVE FOR SCAN: Y N COMMENTS: This patient has been informed that they require a delivery motorcycle driver to drive them home after this procedure. In the absence of a delivery motorcycle driver, IR will not be able to perform this procedure and will need to reschedule.Pt verbalized understanding of these instructions during the pre-procedure education via phone. documented in this encounter Plan of Treatment Upcoming Encounters Date Type Specialty Care Team Description 06/19/2022 Office Visit Rheumatology Richi Blackmon MD [facility] DR RHEUMATOLOGY [place], [place] [address] (Wo rk) Scheduled Procedures Name Priority Associated Diagnoses Date/Time EGD, UPPER GI ENDOSCOPY Family hx of colon cance r COLONOSCOPY, DIAGNOSTIC Family hx of colon cance r documented as of this encounter Visit Diagnoses Not on filedocumented in this encounter Care Teams Leasing Coordinator Relationship Specialty Start Date End Date Jazmine Baer MD PCP - General 11/07/10 [address] [place] [address] documented as of this encounter
--- OUTSIDE RECORDS SUMMARY | 2022-04-11 10:56 | XMS_ITS | Encounter Summary ---
:1960 Author Organization [facility] [place] [address] Care Team Providers Name Role Phone Jazmine Baer MD Primary Care Provider Encounter Details Date Type Department Care Team Description 07/21/2013 Anesthesia [place] [facility] [place] Grant MD [facility] [place] [address] [facility] Chris Gracia CRNA [facility] [place] [address] [place] [address] Anesthesia Record Procedure Summary Procedure Name Responsible Anesthesia Start Anesthesia Stop Anesthesiologist Time Time COLONOSCOPY, Josias Grant MD 07/21/13 1055 07/21/13 123 0 DIAGNOSTIC (N/A Trunk) Events Date Time Event Comment 07/21/2013 1042 1055 Start 1057 AN Verify 1057 An Start Data 1100 An Induction 1106 Anesthesia Ready 1119 Break/Relief In Robles SAWANT RNA 1148 Break/Relief Out 1225 an stop data 1230 Stop Name Total IV Lidocaine 50 mg Propofol 70 mg Propofol INF 2,041.2 mg Glycopyrrolate 0.2 mg Ciprofloxacin 400 mg Lactated Ringers 900 mL Agents Name O2 Auxiliary Flowmeter 1 Blood No blood administrations on file. Lines, Drains, and Airways Type Details Placement Removal Incision 05/28/13; 1512; hip; 05/28/13 1512 by Fito Smith 02/05/22 1715 by Melissa, 02/05/22 (LDA cleanup WES Lopez utility RA#[id number]); 1715 (LDA cleanup utility RA#[id number]) PIV 07/21/13; 1038; 07/21/13; 07/21/13 1038 by Surinder lenz, 07/21/13 1450 by Fabio, 1450 WES Lindsey RN documented in this encounter Social History Tobacco [...] encounter OR Notes Anesthesia Postprocedure Evaluation - Josias Grant MD - 07/23/2013 8:46 PM EST Patient: Bucky Acevedo Procedure(s) Performed: Procedure(s): COLONOSCOPY, DIAGNOSTIC UPPER EUS- ENDOSCOPIC ULTRASOUND UPPER GASTROINTESTINAL ENDOSCOPY,WITH BIOPSY SINGLE OR MULTIPLE Actual Anesthetic: MAC Patient location: PACU Post-op pain: Adequate analgesia Post-op nausea: no nausea or vomiting Last Vitals: Filed Vitals: 07/21/13 1233 BP: 112/45 Pulse: 74 Temp: Resp: 16 Post-op cardiovascular and respiratory status: is stable Level of consciousness: awake, alert and oriented Complications: no apparent complications and tolerated the procedure well Fluid Status: normal Anesthesia Preprocedure Evaluation - Josias Grant MD - 07/21/2013 10:33 AM EST Pre-Anesthesia Evaluation for: Bucky Acevedo a 53 y.o. male. Procedure(s): EGD, UPPER GI ENDOSCOPY COLONOSCOPY, DIAGNOSTIC UPPER EUS- ENDOSCOPIC ULTRASOUND Patient Active Problem List Diagnosis ??? Hepatosplenomegaly US abdomen ??? Nausea and [...] aspiration w/bx through same incision/site [place] [place] [facility] BONE MARROW ASP PERFORMED W/BX THRU BX INCISION performed by Alem Evangelista MD at [facility] ??? Bone marrow bx, needle/trocar [place] [place] BONE MARROW,BIOPSY performed by Alem Evagnelista MD at [facility] ??? Muscle biopsy 2008 ??? Lithotripsy ??? Tunneled venous port placement 2011 History Substance Use Topics ??? Smoking status: Never Smoker ??? Smokeless tobacco: Never Used ??? Alcohol Use: 0.0 oz/week Comment: Occasional, 1 beer once or twice a year; no hx of heavy ETOH History Drug Use No Allergies Allergen Reactions ??? Ofnkzvg-Dcx-Cov Reductase Inhibitors Myopathy Medications: MAR and/or home medications have been reviewed. Physical Exam: There were no vitals filed for this visit. There is no height or weight on file to calculate BMI. Airway Assessment: Mallampati: IV TM distance: <3 FB Neck ROM: full Cardiovascular Assessment: cardiovascular exam normal Pulmonary Assessment: pulmonary exam normal Dental Assessment: (+) upper dentures and lower dentures Misc Assessment: Patient is wearing No contact(s). IV access: Peripheral line Anesthesia Plan: ASA 3 MAC, with a(n) intravenous induction Propofol for EGD colonoscopy Region - Other Informed Consent: Anesthetic plan and risks discussed with patient. Plan discussed with BID MANAGER. Misc. Assessment: documented in this encounter Plan of Treatment Upcoming Encounters Date Type Specialty Care Team Description 06/19/2022 Office Visit Rheumatology Richi Blackmon MD [facility] RHEUMATOLOGY [place], [place] [address] (Wo rk) Scheduled Procedures Name Priority Associated Diagnoses Date/Time EGD, UPPER GI ENDOSCOPY Family hx of colon cance r COLONOSCOPY, DIAGNOSTIC Family hx of colon cance r documented as of this encounter Visit Diagnoses Not on filedocumented in this encounter Administered Medications Inactive Administered Medications - up to 3 most recent administrations Medication Order MAR Action Action Date Dose Rate Site ciprofloxacin (CIPRO) 400mg in Given 07/21/2013 11:40 AM EST 400 mg dextrose 5% 200mL PRN, Starting on Sat07/21/13 at 1140, Until Sat07/21/13 at 1232, Administer over 60 Minutes, Anesthesia Intra-op glycopyrrolate (ROBINUL) injection Given 07/21/2013 11:05 AM EST 0.2 mg PRN, Starting on Sat07/21/13 at 1105, Until Sat07/21/13 at 1232, Anesthesia Intra-op, Routine lactated ringers infusion New Bag 07/21/2013 10:50 AM EST mL CONTINUOUS PRN, Starting on Sat07/21/13 at 1050, Until Sat07/21/13 at 1232, Anesthesia Intra-op lidocaine (PF) (XYLOCAINE) 100 mg/5 mL (2 %) Given 04/2014 11:00 AM EST 50 mg injection PRN, Starting on Sat07/21/13 at 1100, Until Sat07/21/13 at 1232, Anesthesia Intra-op, Routine propofol (DIPRIVAN) 10 mg/mL bolus injection Given 04/2014 11:00 AM EST 70 mg (Anesthesia) PRN, Starting on Sat07/21/13 at 1100, Until Sat07/21/13 at 1232, Anesthesia Intra-op propofol (DIPRIVAN) Rate/Dose 07/21/2013 12:14 150 mcg/kg/min 102.1 mL/hr infusion Change PM EST CONTINUOUS PRN, Starting on Sat07/21/13 at 1105, Until Sat07/21/13 at 1232, Anesthesia Intra-op, Routine Rate/Dose Change 07/21/2013 12:11 PM EST 200 mcg/kg/min 136.1 mL/hr Rate/Dose Change 07/21/2013 11:25 AM EST 250 mcg/kg/min 170.1 mL/hr documented in this encounter Care Teams Coat Checker Relationship Specialty Start Date End Date Jazmine Baer MD PCP - General 11/07/10 [address] [place] [address] documented as of this encounter
--- OUTSIDE RECORDS SUMMARY | 2022-04-11 10:56 | XMS_ITS | Encounter Summary ---
:1960 Author Organization [facility] [place] [address] Care Team Providers Name Role Phone Jazmine Baer MD Primary Care Provider Encounter Details Date Type Department Care Team Description 03/17/2014 Office Visit Neurology at [facility] [place] Celso Casiano MD [facility] NEUROLOGY DEPT. [place] [id number] Myopathy (Primary Dx) [facility] Ruperto Mcclellan MD [facility] [place] [address] [place] [id number] Social History Tobacco Use Types Packs/Day Years [...] Sign Reading Time Taken Comments Blood Pressure 150/66 03/17/2014 2:42 PM EDT Pulse 56 03/17/2014 2:42 PM EDT Temperature - - Respiratory Rate - - Oxygen Saturation - - Inhaled Oxygen Concentration - - Weight 111.1 kg (245 lb) 03/17/2014 2:42 PM EDT Height 172.7 cm (5' 8) 03/17/2014 2:42 PM EDT Body Mass Index 37.25 03/17/2014 2:42 PM EDT documented in this encounter Progress Notes Ruperto Mcclellan MD - 03/17/2014 3:48 PM EDT Neurology Clinic Note Patient Name: Bucky Acevedo : 1960 PCP: JAZMINE BAER MD Clinic Attending: Dr. Casiano Patient ID: Bucky Acevedo is a 53 y.o. man with h/o immune mediated myopathy (detailed below) here for scheduled FU visit. Patient was last seen by me in August this year. Patient Active Problem List Diagnosis ??? 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 Nonalcoholic steatohepatitis (HORTON) ??? Anemia Overview Note: BMBX was negative. Unclear cause. Either anemia of chronic disease or possibly due to renal insufficiency and decreased epo production. ??? Hepatosplenomegaly Overview Note: US abdomen ??? Nausea and vomiting ??? Diabetes mellitus type II ??? Myopathy Overview Note: Necrotizing myopathy (immune mediated?) ?? Used to see Dr. Bucky Marie @ [facility] ?? Onset: late 2008, pain in back & RLE, progressive weakness with walking in setting of being on statin x about 9 years ?? Jun 2009: progressive muscle weakness --> Dx myopathy. CK in 5000s ?? Muscle Bx (Dr. Ricardo in [place]) reportedly consistent with necrotizing myopathy ?? Paraneoplastic work up negative ?? Immunotherapy: ?? Was on prednisone previously, then MTX and monthly IVIG infusions ?? IVIG seemed to be the only effective treatment ?? (+) port-induced thrombosis. IVIG discontinued in September 2013 ?? Workup: ?? TPMT enzyme activity 08/2009 normal ?? Myositis Antibody Panel Plus 06/2009 negative (anti-Kiesha, PM/SCL, WA-2, PL-7, PL-12, EJ, OJ KU, U2 SN ASSIGNMENT DESK ASSISTANT, SRP) ?? mitochondrial mutations: Absence of all screened point mtDNA mutations and deletions associated with neuromuscular disorders. Jun 2012 ?? Seen by Dr. David. CK 1 month prior was 1200 ?? IVIG restarted in Jul 2012 (no change in strength while off IVIG Apr-Jul) Jan 2013 ?? Established care with Dr. Mcclellan ?? On 2 days IVIG per month, on MTX 15mg qweekly ?? Weakness stabilized, improved a bit on exam (3/5 proximal LEs) August 2013 ?? Has exam findings of distal LE sensory deficits consistent with diabetic neuropathy (very poorly controlled DM) ?? Stopped MTX in summer (seen in [place] for this decision) but stopped seeing Dr. Olivera ?? C/o back pain ?? 4/5 proximal LE strengths ?? Still on IVIG 2 days / month September 2013 ?? CK 719 (09/11) --> 664 (09/29) October 2013 ?? Had another port-induced thrombosis ?? Port removed, last IVIG given early October, placed on coumadin Interval History: Last IVIG in October Hasn't had recurrence of LE weakness yet but feels somewhat heavy Had a fall last week going up the stairs but seemed to be more from losing balance (has sensory ataxia) Still on coumadin, sees Hem/Onc here No pain in legs Has pain across lower back Thinks he had some blood work done last month, no result faxed to this office Past Medical History Diagnosis Date ??? Diabetes ??? Hypertension ??? Hyperlipidemia ??? Gout ??? Obesity ??? Kidney stone ??? 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 Shingles 2010 ??? DM II (diabetes mellitus, type II), controlled ??? Cirrhosis Medications: Medications 03/17/14 1444 Medication Sig Taking? ferrous sulfate 325 mg (65 mg iron) Tablet Take 1 tablet by mouth 2 times daily. Yes warfarin (COUMADIN) 5 mg tablet Take 5 mg by mouth daily. Yes omeprazole (PRILOSEC) 40 mg capsule Take 1 capsule by mouth daily. Yes indomethacin (INDOCIN) 25 mg capsule Take 12.5 mg by mouth 2 times daily (with meals). Yes ondansetron (ZOFRAN) 4 mg tablet Take 1 tablet by mouth as needed. Yes INSULIN LISPRO (HUMALOG SUBQ) Inject 12 Units subcutaneously 3 times daily (with meals). Yes insulin glargine (LANTUS) 100 unit/mL vial injection Inject 70 Units subcutaneously nightly. Yes lisinopril-hydrochlorothiazide (PRINZIDE;ZESTORETIC) 20-12.5 mg per tablet Take 2 tablets by mouth daily. Yes atenolol (TENORMIN) 100 mg tablet Take 50 mg by mouth daily. Yes traMADol (ULTRAM) 50 mg tablet Take 200 mg by mouth 3 times daily as needed. Yes Allergy: Allergies Allergen Reactions ??? Morphine Itching ??? Pukutrg-Xmk-Rmn Reductase Inhibitors Myopathy Review of systems: Constitutional: [...] systems otherwise negative Physical Exam: Filed Vitals: 03/17/14 1442 BP: 150/66 Pulse: 56 Height: 172.7 cm (5' 8) Weight: 111.131 kg (245 lb) Gen: NAD Neck: Supple Neuro Exam: MS: AAOx4, clear language, no dysarthria, follows commands CN: PERRL, EOMI, no facial asymmetry Motor: Normal bulk and tone. UE: 5/5 throughout LE: 5- BL hip flexion (3/5 R in Jan 2013, 4/5 BL in August 2013) 5/5 R, 5/5 L Knee extension 5/5 R, 5/5 L Knee flexion 5/5 R, 5/5 L Foot dorsiflexion 5/5 R, 5/5 L Foot plantar flexion Sensation: Impaired proprioception and light touch of L toes Reflexes: DTRs 1+ throughout Coordination: LAURA and finger tapping smooth & symmetric Gait: mild waddling gait Labs: No recent to review Diagnostic Tests and Imaging: No new imaging studies Assessment / Plan: Bucky Acevedo is a 53 y.o. 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 He has been off all immunotherapy since early October 2013 due to port thrombosis (2nd time). His hip flexion strength continues to improve despite being off immunotherapy on exam. Distal LE sensory deficit likely from diabetic neuropathy. -consider gabapentin or amitriptyline for back pain (will defer to PCP) -no more immunotherapy for now, will observe clinically -recheck CK today -continue to FU with GI, Hem/Onc, PCP -DM control -continue home PT -RTC in [address] Oh Mcclellan MD Neurology Resident, PGY4 Pager [phone] I have seen the patient and reviewed [...] Blackmon MD [facility] DR RHEUMATOLOGY [place] [phone] (Wo rk) Scheduled Procedures Name Priority Associated Diagnoses Date/Time EGD, UPPER GI ENDOSCOPY Family hx of colon cance r COLONOSCOPY, DIAGNOSTIC Family hx of colon cance r documented as of this encounter Results (ABNORMAL) CK (03/17/2014 4:40 PM EDT) P athologist Signature CK, Total 3555 (H) 0 - 200 CERNER unit/L MILLENNIUM Specimen Anatomical Collection Method Collection Time Receive d Time (Source) Location / / Volume Laterality Blood specimen 03/17/2014 4:40 PM 014 4:49 (specimen) EDT PM EDT Resulting Agency Comment Spec In Lab Celso Casiano MD CHEMISTRY ORDERABLES Performing Organization Address City/State/[place] [address] [facility] [employer] [facility] documented in this encounter Visit Diagnoses Diagnosis Myopathy - Primary Myopathy, unspecified documented in this encounter Care Teams Felt Pad Cutter Relationship Specialty Start Date End Date Jazmine Baer MD PCP - General 11/07/10 [address] [place] [address] documented as of this encounter
--- OUTSIDE RECORDS SUMMARY | 2022-04-11 10:56 | XMS_ITS | Encounter Summary ---
:1960 Author Organization [facility] [place] [address] Care Team Providers Name Role Phone Jazmine Baer MD Primary Care Provider Encounter Details Date Type Department Care Team Description 07/09/2013 Telephone Gastroenterology at [facility] [place] Bethanie Gorman APRN [facility] [place] [address] [place], [place] [id number] [phone] (Wo rk) Social History Tobacco Use Types [...] Telephone Encounter - Bethanie Gorman APRN - 07/09/2013 4:34 PM EST Contacted Mr Acevedo to discuss/review the results of his MRI abdomen that revealed 1. 16 mm lesion within the anterior segment of the right hepatic lobe corresponds with the hyperechoic finding on recent ultrasound. Constellation of findings is compatible with a hemangioma. Bilateral probable renal cyst. 3. Cholelithiasis. Trace pericholecystic is fluid is noted, however there are no inflammatory changes to indicate acute cholecystitis. Correlation with any clinical symptoms in the right upper quadrant is recommended. 4. Incidental unexpected finding of a 9 mm cystic focus in the body of the pancreas. The differential diagnosis includes cyst, pseudocyst, or side branch IPMN. Recommend proceeding with EUS to evaluate 9 mm cystic focus noted in the body of his pancreas. He isamenable to this. Will have the office contact him to schedule. Await results for further management. documented in this encounter Plan of Treatment Upcoming Encounters Date Type Specialty Care Team Description 06/19/2022 Office Visit Rheumatology Richi Blackmon MD [facility] DR RHEUMATOLOGY [place], [place] [address] (Wo rk) Scheduled Procedures Name Priority Associated Diagnoses Date/Time EGD, UPPER GI ENDOSCOPY Family hx of colon cance r COLONOSCOPY, DIAGNOSTIC Family hx of colon cance r documented as of this encounter Visit Diagnoses Not on filedocumented in this encounter Care Teams Hospital Unit Coordinator Relationship Specialty Start Date End Date Jazmine Baer MD PCP - General 11/07/10 [address] [place] [address] documented as of this encounter
--- OUTSIDE RECORDS SUMMARY | 2022-04-11 10:56 | XMS_ITS | Encounter Summary ---
:1960 Author Organization [facility] [place] [address] Care Team Providers Name Role Phone Jazmine Baer MD Primary Care Provider Encounter Details Date Type Department Care Team Description 07/21/2013 Surgery Gastroenterology at [facility] Royer Temple, COLONOSCOPY, [facility] Hilda [place] [address] [facility] [phone] GASTROENTEROLOGY DEPT. [place], [place] [address] Social History Tobacco Use Types [...] Sign Reading Time Taken Comments Blood Pressure 112/45 07/21/2013 12:33 PM EST Pulse 74 07/21/2013 12:33 PM EST Temperature 36.7 ??C (98.1 ??F) 07/21/2013 9:53 AM EST Respiratory Rate 16 07/21/2013 12:33 PM EST Oxygen Saturation 100% 07/21/2013 12:33 PM EST Inhaled Oxygen Concentration - - Weight - - Height - - Body Mass Index - - documented in this encounter Discharge Instructions Discharge InstructionsRandi Mccarthy RN - 07/21/2013 12:59 PM EST UPPER GI ENDOSCOPY WHAT TO EXPECT AFTER THE PROCEDURE Medications You may have a mild sore throat. Ice chips, popsicles, over the counter throat lozenges or spray may help numb your throat. This procedure should not cause a fever. Call your healthcare provider or seek immediate [...] You do not get better as expected. Colonoscopy and polyp removal What to expect after the procedure You may feel a little more gassy or bloated than usual, this is normal. You should expect the return of normal bowel function in the next 2 to 3 days. Because some polyps were removed, you may see a little blood with the next few bowel movements, this should be a small amount ( less than a few tablespoons) and will resolve on it's own. ACTIVITY Because of the sedation that you received Your judgement and reaction time are effected ?? Go home and rest for the remainder for the day. You may resume your normal activities tomorrow ?? Change from one position to the next slowly because you may lose your balance unexpectedly. ?? Be careful on stairs, as you may be unsteady. FOR THE NEXT 24 HRS ?? DO NOT DRIVE OR OPERATE MACHINERY ?? DO NOT DRINK ALCOHOLIC BEVERAGES ?? DO NOT SIGN LEGAL DOCUMENTS ?? If you are a smoker: DO NOT SMOKE WHILE YOU ARE ALONE Diet ?? Start by eating small portions of foods that ordinarily will not upset your stomach, avoid gas producing foods for the next few days. ?? Be gentle with what you choose to start with ?? A soft diet may be helpful for the next 3 days as this may help to keep your stools soft. ?? Drink plenty of fluids ( unless your doctor has told you not to). Medicines Avoid medicines that influence the way your blood clots for the next week. These would include anti-inflammatory medicine, such as ibuprofen( Advil, Motrin) and naproxen ( Aleve). If you need something for discomfort, Tylenol (Acetaminophen) is safe if used as directed. Your Doctor will tell you whento restart your prescribed blood thinners The IV site-- slight tenderness, or redness is normal, you can use warm compresses if you get concerned. If the tenderness +/or redness increases or foul drainage and a red streak occurs, please contact your PCP immediately. When should you call for help? Call 911 anytime you think you may need emergency care. For example If you pass out (loss of consciousness) If you pass maroon or bloody stools If you have severe belly pain Call your healthcare provider or seek immediate medical care if: Your stools are black or tar like Your stools have streaks of blood that is more pronounced with each BM You have belly pain, or your belly is swollen and firm You vomit You have a fever You are very dizzy Watch closely for changes in your health, and be sure to contact your doctor if you have any problems. Your Doctor will let you know when you will need your next colonoscopy. The results of your test andyour risk for colorectal cancer will help your doctor decide how often you need to be checked. Saturday-Saturday Clinic [phone] 8a-5p Same Day Endo [phone] 7a-8p Otherwise contact [phone] and ask to speak to the vp revenue cycle government operations consultant Follow up care is a mendez part of your treatment and safety. Be sure to make and go to all appointments, and call your doctor if you are having problems. Discharge instructions reviewed with patient who expresses understanding Patient InstructionsRoyer Temple MD - 07/21/2013 12:25 PM EST Please see Recommendations in the Provation procedure report which is documented in the procedural note in E-DH. AttachmentsThe following attachments cannot be sent through Care Everywhere. COLON POLYPS: AFTER YOUR VISIT (CZECH)UPPER GI ENDOSCOPY: WHAT TO EXPECT AT HOME (CZECH)documented in this encounter Medications at Time of Discharge Medication Sig Dispensed Refills Start Date End Date ciprofloxacin (CIPRO) Take 1 tablet by 6 tablet 0 07/21/19 14 07/24/2013 500 mg tablet mouth 2 times daily for 3 days. zinc sulfate (ZINCATE) Take 1 capsule by 60 capsule 5 201309/01/2013 220 (50) mg mouth 2 times daily. capsuleIndications: Zinc deficiency rifaximin (XIFAXIN) 550 Take 1 tablet by [...] times daily. documented as of this encounter H&P Notes Royer Temple MD - 07/21/2013 10:52 AM EST Gastroenterology and Hepatology Pre-Procedure History and Physical Exam Procedure: EUS: /EGD/colonoscopy Indication: Abnormal MRI (cyst pancreas); Durand's; screening for colon cancer. Patient Active Problem List Diagnosis Code ??? Myopathy 359.9 ??? Nausea and vomiting 787.01 ??? Diabetes mellitus type II 250.00 ??? Hepatosplenomegaly 571.8 EXAM: HEENT: Airway examined, oropharynx clear LUNGS: Clear to auscultation HEART: Regular rate and rhythm, normal S1, S2 ABDOMEN: Normal bowel sounds, soft, non tender, non distended, A/P Proceed with the planned endoscopic procedure. Risks and benefits of the procedure explained to the patient. Consent signed. documented in this encounter Miscellaneous Notes Miscellaneous - Provider, Scanning - 07/21/2013 10:04 PM EST Miscellaneous - Provider, Scanning - 07/21/2013 9:59 PM EST Miscellaneous - Provider, Scanning - 07/21/2013 4:32 PM EST Op Note - Royer Temple MD - 07/21/2013 12:25 PM EST [facility] Operative Note Patient Name: Bucky Acevedo : [id number] MR#: [id number] Case Date: 07/21/2013 Surgeon: Surgeon(s) and Role: * Royer Temple MD - Primary Preoperative diagnosis: Durand's esophagus; r/o gastritis,duodenitis,anemia,in- complete colo,CRC screening pancreatic lesion (consult) Postoperative diagnosis: * No post-op diagnosis entered * Procedure(s): COLONOSCOPY, DIAGNOSTIC UPPER EUS- ENDOSCOPIC ULTRASOUND UPPER GASTROINTESTINAL ENDOSCOPY,WITH BIOPSY SINGLE OR MULTIPLE Full procedure note is documented under the Procedure section of eD. documented in this encounter Plan of Treatment Upcoming Encounters Date Type Specialty Care Team Description 06/19/2022 Office Visit Rheumatology Richi Blackmon MD [facility] ER [address] RHEUMATOLOGY [place], [place] [address] (Wo rk) Scheduled Procedures Name Priority Associated Diagnoses Date/Time EGD, UPPER GI ENDOSCOPY Family hx of colon cance r COLONOSCOPY, DIAGNOSTIC Family hx of colon cance r documented as of this encounter Procedures Procedure Name Priority Date/Time Associated Comments Diagnosis NON-PELLETIZER OPERATOR FINAL REPORT Routine 07/21/2013 12:25 Res ults for this PM EST procedure are i n the results section. NON-PELLETIZER OPERATOR FINAL REPORT Routine 07/21/2013 12:25 Res ults for this PM EST procedure are i n the results section. SURGICAL PATHOLOGY Routine 07/21/2013 12:25 Resul ts for this REPORT PM EST procedure are i n the results section. SPECIMEN TO PATHOLOGY Routine 07/21/2013 12:25 Re sults for this PM EST procedure are i n the results section. SPECIMEN TO PATHOLOGY Routine 07/21/2013 12:25 Re sults for this PM EST procedure are i n the results section. SPECIMEN TO PATHOLOGY Routine 07/21/2013 12:25 Re sults for this PM EST procedure are i n the results section. SPECIMEN TO PATHOLOGY Routine 07/21/2013 12:25 Re sults for this PM EST procedure are i n the results section. CYTOPATHOLOGY Routine 07/21/2013 12:25 Results fo r this NON-GYNECOLOGICAL PM EST procedure are in the results section. CYTOPATHOLOGY Routine 07/21/2013 12:25 Results fo r this NON-GYNECOLOGICAL PM EST procedure are in the results section. CYTOPATHOLOGY Routine 07/21/2013 12:25 Results fo r this NON-GYNECOLOGICAL PM EST procedure are in the results section. UPPER GI ENDOSCOPY Routine 07/21/2013 10:55 Resul ts for this AM EST procedure are i n the results section. UPPER GASTROINTESTINAL 07/21/2013 10:54 Durand's ENDOSCOPY,WITH BIOPSY AM EST esophagus SINGLE OR MULTIPLE (WRVU 2.49) UPPER EUS- ENDOSCOPIC 07/21/2013 10:54 Durand's ULTRASOUND AM EST esophagus COLONOSCOPY, DIAGNOSTIC 07/21/2013 10:54 Durand's AM EST esophagus COLONOSCOPY Routine 07/21/2013 10:53 Results for this AM EST procedure are i n the results section. UPPER EUS-ENDOSCOPIC Routine 07/21/2013 10:47 Res ults for this ULTRASOUND AM EST procedure are i n the results section. POCT GLUCOSE Routine 07/21/2013 10:00 Results for this AM EST procedure are i n the results section. documented in this encounter Results Non-Consulting Technical Manager Final Report (07/21/2013 12:25 PM EST) Component Value Ref Test Analysis Performed At [facility] Method Time Signature Non-Consulting Technical Manager CERNER Final Report ? [facility] ? Provider: ?? ROYER TEMPLE ?Pt. Name: ?? FAROOQ AARON, BUCKY Arboleda ? Acc #: ?[id number] ?Pt. MRN: ?[id number] ? Col Date: ?? 4 ? /Sex: ?1960,(53 years),Male ? Rec Date: ?? 07/21/2013 ? LOC: ?4T ? CYTOPATHOLOGY: ??NGYN ? ---Adequacy--- ? Specimen submitted is satisfactory. ? ---Cytopathologic Diagnosis--- ? See Comment ? 07/22/13 ?Screened by: ? REP ? Rescreened by: ?? FR,FR,X ? 07/27/13 ?Verified by: ? Devon FONSECA, Hetal ?Pathol ogist ? (Electronic Signature) ? ---Comment--- ? Pancreas, EUS-guided FNA 1cm cystic mass pancreas bod y: ? 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 ? Cell block findings incorporated. Additional levels e xamined. ? Clinicopathologic correlation is recommended. ? Drs. Salvador Lai and Astrid coates have reviewed the case and concur ? with the above diagnosis. ? ---Clinical Information--- ? Specimen Source: ?Pancreas, EUS-guided FNA 1cm cystic mass pancrea s body ? Pertinent Clinical Data and Significant Therapy: ?Small 1cm cystic mass pancreas body and adjacent 1cm solid mass vs LN ? Clinical Impression: ?Peripancreatic LN ? Pertinent Radiologic Findings: ?(not provided) ? Gross Description: ?Received in Cyto rich Red, approximately 10 ml. total volume of clear, ? pink fluid, with clots. ?Total Preparation: Liquid Based Prep 1; Cell Blo ck 1. Specimen (Source) Anatomical Collection Method Collection Time Re ceived Time Location / / Volume Laterality 07/21/2013 12:25 PM EST Royer Temple MD PATHOLOGY/CYTOLOGY ORDERABLE S Performing Organization Address City/State/ZIP [place] [address] [facility] Non-Consulting Technical Manager Final Report (07/21/2013 12:25 PM EST) Component Value Ref Test Analysis Performed At [facility] gist Range Method Time Signature Non-Consulting Technical Manager [facility] Final Report ? [facility] ? Provider: ?? CAROL, ROYER R ?Pt. Name: ?? SIMPS ON, BUCKY Arboleda ? Acc #: ?[id number] ?Pt. MRN: ?[id number] ? Col Date: ?? 4 ? /Sex: ?1960,(53 years),Male ? Rec Date: ?? 07/21/2013 ? LOC: ?4T ? CYTOPATHOLOGY: ??NGYN ? ---Adequacy--- ? Specimen submitted is satisfactory. ? ---Cytopathologic Diagnosis--- ? See Comment ? 07/22/13 ?Screened by: ? REP ? Rescreened by: ?? FR,XL,X ? 07/27/13 ?Verified by: ? Devon FONSECA, Hetal ?Pathol ogist ? (Electronic Signature) ? ---Comment--- ? 1cm pancreatic mass vs LN, EUS FNA: ? Clusters of bland benita earing cells (possible acinar cells), rare groups of ? ductal epithelial fer ls and gastrointestinal epithelial cells (procedural ? contaminant), and blood are present. ? No definite evidence of lymph node sampling identifie d. ? Diagnostic tissue is not appreciated. ? Cell block findings incorporated. Additional levels e xamined. ? Clinicopathologic and endoscopic correlation is requi red. ? Salvador Uribe and Astrid coates have reviewed the case and concur ? with the above diagnosis. ? ---Clinical Information--- ? Specimen Source: ?1cm pancreatic mass vs LN, EUS FNA ? Pertinent Clinical Data and Significant Therapy: ?Small 1cm cystic mass pancreas body and adjacent 1cm solid mass vs LN ? Clinical Impression: ?Peripancreatic LN ? Pertinent Radiologic Findings: ?(not provided) ? Gross Description: ? [facility] ? Provider: ?? CAROL, ROYER Arauz ?Pt. Name: ?? FAROOQ ON, BUCKY Arboleda ? Acc #: ?[id number] ?Pt. MRN: ?[id number] ? Col Date: ?? 4 ? /Sex: ?1960,(53 years),Male ? Rec Date: ?? 07/21/2013 ? LOC: ?4T ? CYTOPATHOLOGY: ??NGYN ?Received in Cyto rich Red, approximately 15 ml. total volume of clear, ? red fluid, with clots. ?Total Preparation: Liquid Based Prep 1; Cell Blo ck 1. Specimen (Source) Anatomical Collection Method Collection Time Re ceived Time Location / / Volume Laterality 07/21/2013 12:25 PM EST Royer Temple MD PATHOLOGY/CYTOLOGY ORDERABLE S Performing Organization Address City/State/ZIP [place] [address] [facility] Surgical Pathology Report (07/21/2013 12:25 PM EST) Component Value Ref Test Analysis Performed At [facility] gist Range Method Time Signature Surgical [facility] Pathology ? [facility] Report ? Provider: ?? ROYER TEMPLE ?Pt. Name: ?? FAROOQ ON, BUCKY Arboleda ? Acc #: ?[id number] ?Pt. MRN: ?[id number] ? Col Date: ?? 4 ? /Sex: ?1960,(53 years),Male ? Rec Date: ?? 07/21/2013 ? LOC: ?4T ? SURGICAL PATHOLOGY ? ---Pathologic Diagnosis--- ? A - Sigmoid colon, polypectomy: ? Hyperplastic polyp. ? B - Distal esophagus, biopsy: ? Squamocolumnar junctional mucosa with ??intestinal metaplasia, negative ? for dysplasia. ? C - Stomach, biopsy: ? Antrum-type mucosa with very mild chronic gastr itis. ? Body/fundic-type mucosa with very mild chronic gastritis and ? superficial intestinal metaplasia in two oxyntic muco sarabjit fragments. ? Immunostaining for H. pylori is negative. (see Note) ? Note: Superficial int estinal metaplasia in some tissue fragements labeled ? as taken from the stomach may represent either true metaplasia of the ? gastric mucosa or metaplastic Durand's mucosa if bennie en close to GE ? junction. Endoscopic correlations are recommended. ? CR-0 ? 07/24/13 ? B[facility] ? 07/24/13 Verified by: ? Yoel Wang MD ? Pathologist ? (Electronic Si gnature) ? The attending pathologist whose signature appears o n this report has ? reviewed all diagnostic slides and has edited the talia ss and/or ? microscopic portion of the report in rendering the fi nal pathologic ? diagnosis. ? ---Microscopic Description--- ? Immunohistochemistry Studies: ? Formalin-fixed, paraf fin-embedded tissue sections are studied using the B- ? SA system technique w ith appropriate positive and negative controls. ??These ? IHC studies provide t he pathologist with adjunctive diagnostic information. ? Antibody specificity has been verified by testing antibodies on a series of ? in-house tissues with known immunohistochemical perfo rmance ? characteristics. The clinical interpretation of any antibody positive ? staining or its absence is evaluated within the markie xt of clinical ? presentation, morphol ogy, histopathological criteria and other diagnostic ? tests. ? [facility] ? Provider: ?? ROYER TEMPLE ?Pt. Name: ?? FAROOQ ON, BUCKY C ? Acc #: ?[id number] ?Pt. MRN: ?[id number] ? Col Date: ?? 4 ? /Sex: ?1960,(53 years),Male ? Rec Date: ?? 07/21/2013 ? LOC: ?4T ? SURGICAL PATHOLOGY ? Block ?Antibody ? Result (Posi tive/Negative) ? C1 ? H. pylori ?Negat ida. ? ---Gross Description--- ? A - Labeled/Fixative: Polyp sigmoid, formalin. ? Quantity/Size: One, 0.3 cm. ? Tissue Description: Soft good tissue. ? Sections/Processing: (T1) ? B - Labeled/Fixative: BX distal esophagus, formalin. ? Quantity/Size: Six, ranging from 0.1-0.4 cm. ? Tissue Description: Soft good-brown tissue, friable. ? Sections/Processing: (T2) ? C - Labeled/Fixative: BX stomach, formalin. ? Quantity/Size: Five, ranging from 0.3-0.7 cm. ? Tissue Description: Soft good tissue. ? Sections/Processing: (T1) ??aml ? ---Clinical Information--- ? Specimen Submitted: ? A - Polyp sigmoid ? B - Bx distal esophagus ? C - Bx stomach ? Clinical History: ? Polyps-rule out TA ? Clinical Diagnosis: ? Same Specimen (Source) Anatomical Collection Method Collection Time Re ceived Time Location / / Volume Laterality 07/21/2013 12:25 PM EST Royer Temple MD PATHOLOGY/CYTOLOGY ORDERABLE S Performing Organization Address City/[facility]/ZIP Code Phon e Number [address] [facility] Specimen to Pathology (surgical or derm) (07/21/2013 12:25 PM EST) Specimen Anatomical Collection Method Collection Time Receive d Time (Source) Location / / Volume Laterality AP Specimen 07/21/2013 12:25 07/21/2013 PM EST 12:25 PM EST Narrative CERNER MILLENNIUM - 07/21/2013 12:25 PM EST Specimen requisition ordered. ??Separate Pathology report to follow Royer Temple MD PATHOLOGY/CYTOLOGY ORDERABLE S Performing Organization Address City/[facility]/ZIP Code Phon e Number [address] [facility] Specimen to Pathology (surgical or derm) (07/21/2013 12:25 PM EST) Specimen Anatomical Collection Method Collection Time Receive d Time (Source) Location / / Volume Laterality AP Specimen 07/21/2013 12:25 07/21/2013 PM EST 12:25 PM EST Narrative CERNER ADEENNIUM - 07/21/2013 12:25 PM EST Specimen requisition ordered. ??Separate Pathology report to follow Jayson Andrade MD PATHOLOGY/CYTOLOGY ORDERABLE S Performing Organization Address City/State/[place] [address] [facility] ADEEN[facility]UM Specimen to Pathology (surgical or derm) (07/21/2013 12:25 PM EST) Specimen Anatomical Collection Method Collection Time Receive d Time (Source) Location / / Volume Laterality AP Specimen 07/21/2013 12:25 07/21/2013 PM EST 12:25 PM EST Narrative CERNER ADEENNIUM - 07/21/2013 12:25 PM EST Specimen requisition ordered. ??Separate Pathology report to follow Royer Temple MD PATHOLOGY/CYTOLOGY ORDERABLE S Performing Organization Address City/[facility]/[place] [address] [facility] FRIDAIUM Specimen to Pathology (surgical or derm) (07/21/2013 12:25 PM EST) Specimen Anatomical Collection Method Collection Time Receive d Time (Source) Location / / Volume Laterality AP Specimen 07/21/2013 12:25 07/21/2013 PM EST 12:25 PM EST Narrative COLLIN BOOKERENNIUM - 07/21/2013 12:25 PM EST Specimen requisition ordered. ??Separate Pathology report to follow Royer Temple MD PATHOLOGY/CYTOLOGY ORDERABLE S Performing Organization Address City/[facility]/[place] [address] [facility] ADEENNIUM Cytopathology Non-Gynecological (07/21/2013 12:25 PM EST) Specimen Anatomical Collection Method Collection Time Receive d Time (Source) Location / / Volume Laterality AP Specimen 07/21/2013 12:25 07/21/2013 PM EST 12:25 PM EST Narrative COLLIN BOOKERENNIUM - 07/21/2013 12:25 PM EST Specimen requisition ordered. ??Separate Pathology report to follow Royer Temple MD PATHOLOGY/CYTOLOGY ORDERABLE S Performing Organization Address City/[facility]/[place] [address] [facility] Cytopathology Non-Gynecological (07/21/2013 12:25 PM EST) Specimen Anatomical Collection Method Collection Time Receive d Time (Source) Location / / Volume Laterality AP Specimen 07/21/2013 12:25 07/21/2013 PM EST 12:25 PM EST Narrative [facility] - 07/21/2013 12:25 PM EST Specimen requisition ordered. ??Separate Pathology report to follow Royer Temple MD PATHOLOGY/CYTOLOGY ORDERABLE S Performing Organization Address City/State/ZIP Code Phon e Number [address] [facility] Cytopathology Non-Gynecological (07/21/2013 12:25 PM EST) Specimen Anatomical Collection Method Collection Time Receive d Time (Source) Location / / Volume Laterality AP Specimen 07/21/2013 12:25 07/21/2013 PM EST 12:25 PM EST [facility]arrative [facility] - 07/21/2013 12:25 PM EST Specimen requisition ordered. ??Separate Pathology report to follow Jayson Andrade MD PATHOLOGY/CYTOLOGY ORDERABLE S Performing Organization Address City/[facility] Code Phon e Number [address] [facility] UPPER GI ENDOSCOPY (07/21/2013 10:55 AM EST) [facility] Method Time Signature UPPER GI [facility] ENDOSCOPY Endoscopy Patient Name: Bucky Acevedo ? Procedure Date: 07/21/2013 10:55 AM ? N: [id number] ? Date of : 1960 ? Age: 53 ? Order #: [id number] ? Procedure: ? Upper GI endoscopy Indications: ? Dyspepsia, Follow-up of Durand's ? esophagus Providers: ? Royer Temple MD, Jayson Stout ? MD Raymond, Noemy Ontiveros RN, ? Betty Ureña RN, Michael in ? Sachin, Pre Kindergarten Teacher Referring : ?Jazmine Baer MD Medicines: ? Monitored Anesthesia Care Complications: ? No immediate complications. Procedure: ? [...] informed consent was obta ined. ? - ASA Grade Assessment: II - A ? patient with mild systemic di sease. ? - Using IV propofol was deter mined to ? be medically necessary for th is ? procedure based on complex pr ocedure ? (ERCP, EUS). ? The procedure, indications, b enefits, ? risks and alternatives were e xplained ? to the patient. Specifically ? discussed were potential ? complications including, but not ? limited to, bleeding, perfora tion, ? infection, missing a cancer, and ? adverse medication reactions. The ? Endoscope was introduced thro ugh the ? mouth, and advanced to the se cond ? part of duodenum. The patient ? tolerated the procedure well. The ? upper GI endoscopy was accomp lished ? without difficulty. The patie nt ? tolerated the procedure well. ? Findings: ? The upper third of the esophagus and middle third of ? the esophagus were normal. ? There were esophageal mucosal changes classified as ? Durand's stage C1-M2 per [place] criteria present in ? the lower third of the esophagus. The maximum ? longitudinal extent of these mucosal changes was 2 cm ? in length. Mucosa was biopsied with a cold forceps ? for histology. One specimen bottle was sent to ? pathology. ? A small hiatus hernia was present. ? Scattered mild inflammation characterized by erythema ? and granularity was found in the gastric antrum. ? Biopsies were taken with a cold forceps for ? Helicobacter pylori testing. ? The examined duodenum was normal. ? Impression: ?- Normal upper third of esophagus and ? middle third of esophagus. ? - Esophageal mucosal changes ? classified as Durand's stage C1-M2 ? per [place] criteria. Biopsied . ? - Hiatus hernia. ? - Gastritis. Biopsied. ? - Normal examined duodenum. Recommendation: ?- Await pathology results. ? - Proceed with EUS ? - The attending physician marshal jackson ? above was present for the ent mary ? procedure. ? Royer Temple MD 07/21/2013 12:50 PM This report has been signed electronically. Number of Addenda: 0 Note Initiated On: 07/21/2013 10:55 AM Specimen (Source) Anatomical Collection Method Collection Time Re ceived Time Location / / Volume Laterality 07/21/2013 10:55 AM EST Jazmine Baer MD GENERAL SURGICAL ORDERABLES Performing Organization Address City/State/[facility] Phon e Number PROVATION COLONOSCOPY (07/21/2013 10:53 AM EST) [facility] Method Time Signature COLONOSCOPY [facility] PROVATION Endoscopy Patient Name: Bucky Acevedo ? Procedure Date: 07/21/2013 10:53 AM ? N: [id number] ? Date of : 1960 ? Age: 53 ? Order #: [id number] ? Procedure: ? Colonoscopy Indications: ? Screening for colorectal malignant ? neoplasm Providers: ? Royer Temple MD, Jayson Stout ? MD Raymond, Noemy Ontiveros RN, ? Betty Ureña RN, Michael in ? [place], Pre Kindergarten Teacher Referring : ?Jazmine Baer MD, Bethanie Arboleda. ? Sherif, BASE LOADER Medicines: ? Monitored Anesthesia Care Complications: ? No immediate complications. Procedure: ? [...] informed consent was obta ined. ? - ASA Grade Assessment: II - A ? patient with mild systemic di sease. ? - Using IV propofol was deter mined to ? be medically necessary for th is ? procedure based on review of the ? patient's medical history, ? medications, and prior anesth esia ? history. ? The procedure, indications, b enefits, ? [...] ? colonoscope was withdrawn. Th e ? quality of the bowel preparat ion was ? good. Scope insertion time wa s 3 ? minutes. Scope withdrawal tyson e was 15 ? minutes. ? Findings: ? The perianal exam was abnormal. Findings include ? hemorrhoids. These were noted on retroflexed view of ? the colon as well. ? A flat polyp was found in the sigmoid colon. The ? polyp was 2 mm in size. The polyp was removed with a ? cold biopsy forceps. Resection and retrieval were ? complete. ? The exam was otherwise normal throughout the examined ? colon. ? The terminal ileum appeared normal. ? Impression: ?- Hemorrhoids found on perianal ex am. ? - One 2 mm polyp in the sigmo id ? colon. Resected and retrieved . ? - The examined portion of the ileum ? was normal. Recommendation: ?- Discharge patient to home (via ? wheelchair). ? - Await pathology results. ? - Repeat colonoscopy in 5-10 years ? for surveillance based on pat hology ? results. ? - The attending physician marshal jackson ? above was present for the ent mary ? procedure. ? Royer Temple MD 07/21/2013 1:22 PM This report has been signed electronically. Number of Addenda: 0 Note Initiated On: 07/21/2013 10:53 AM Specimen (Source) Anatomical Collection Method Collection Time Re ceived Time Location / / Volume Laterality 07/21/2013 10:53 AM EST Jazmine Baer MD GENERAL SURGICAL ORDERABLES Performing Organization Address City/State/ZIP Code Phon e Number PROVATION UPPER EUS-ENDOSCOPIC ULTRASOUND (07/21/2013 10:47 AM EST) Component Value Ref Test Analysis Performed At [facility] Method Time Signature UPPER [facility] PROVATION ENDOSCOPIC Endoscopy ULTRASOUND _ Patient Name: Bucky Acevedo ? Procedure Date: 07/21/2013 10:47 AM ? Date of : 1960 ? Age: 53 ? Order #: [id number] ? Procedure: ? Upper EUS Indications: ? Pancreatic cyst on CT scan Providers: ? Royer Temple MD, Jayson Stout ? MD Raymond, Betty peña RN, ? Noemy Ontiveros RN, Francia keys, ? Pre Kindergarten Teacher Referring : ?Jazmine Baer MD, Bethanie Palomares ? Sherif, BASE LOADER Medicines: ? Monitored Anesthesia Care, Cirpo ? 400mg IV Complications: ? No immediate complications. Procedure: [...] informed consent was obta ined. ? - After reviewing the risks a nd ? benefits, the patient was davida med in ? satisfactory condition to und ergo the ? procedure. ? - ASA Grade Assessment: II - A ? patient with mild systemic di sease. ? - Using IV propofol was deter mined to ? be medically necessary for th is ? procedure based on complex pr ocedure ? (ERCP, EUS). ? The procedure, indications, b enefits, ? risks and alternatives were e xplained ? to the patient. Specifically ? discussed were potential ? complications including, but not ? limited to, bleeding, perfora tion, ? infection, missing a cancer, and ? adverse medication reactions. The ? Endosonoscope was introduced through ? the mouth, and advanced to th e second ? part of duodenum. The upper E US was ? accomplished without difficul ty. The ? patient tolerated the procedu re well. ? Findings: ? Endosonographic Finding : ? There was no sign of significant endosonographic ? abnormality in the esophagus. ? Endosonographic images of the stomach were ? unremarkable. ? There was no sign of significant endosonographic ? abnormality in the examined duodenum. ? There was no sign of significant endosonographic ? abnormality in the common bile duct and in the ? gallbladder. ? A hypoechoic lesion suggestive of a cyst was ? identified in the pancreatic body. The lesion ? measured 10 mm by 7 mm in maximal cross-sectional ? diameter. There was a single compartment without ? septae. The outer wall of the lesion was not seen. ? There was no internal debris within the fluid-filled ? cavity. Diagnostic needle aspiration for fluid was ? performed. Color Doppler imaging was utilized prior ? to needle puncture to confirm a lack of significant ? vascular structures within the needle path. Two ? passes were made with the 22 gauge needle using a ? transgastric approach. A stylet was used. The amount ? of fluid collected was <1 mL. The fluid was turbid, ? blood-tinged and thick. Sample(s) were sent for ? cytology. ? An oval mass was identified in the pancreatic tail. ? The mass was isoechoic. The mass measured 10 mm by 7 ? mm in maximal cross-sectional diameter. The outer ? margins were irregular. Fine needle aspiration was ? performed. Color Doppler imaging was utilized prior ? to needle puncture to confirm a lack of significant ? vascular structures within the needle path. Three ? passes were made with the 25 gauge needle using a ? transgastric approach. A stylet was used. A ? preliminary cytologic examination was not performed. ? Final cytology results are pending. ? Normal spleen with a small adjacent splenule. ? Impression: ?- 10mm pancreas body likely cystic ? lesion s/p FNA. ? - 10mm pancreas body/tail les ion s/p ? FNA. This may represent an ? intrapancreatic lymph-node, ? intrapancreatic splenule, ? neuroendocrine tumor, or othe r. Recommendation: ?- Await cytology results. ? - Proceed with colonoscopy. ? - Cipro 500 mg BID x 3 days. ? - The attending physician marshal jackson ? above was present for the ent mary ? procedure. ? Attending Participation: ? I was present and participated during the entire ? procedure, including non-mendez portions. ? Royer Temple MD 07/21/2013 1:18 PM This report has been signed electronically. Number of Addenda: 0 Note Initiated On: 07/21/2013 10:47 AM Specimen (Source) Anatomical Collection Method Collection Time Re ceived Time Location / / Volume Laterality 07/21/2013 10:47 AM EST Jazmine Baer MD GENERAL SURGICAL ORDERABLES Performing Organization Address City/State/ZIP Code Phon e Number PROVATION (ABNORMAL) POCT Glucose (07/21/2013 10:00 AM EST) P athologist Signature POC Glucose 243 (H) 60 - 199 CERNER mg/dL [facility] Comment: Supplemental ranges: <110 mg/dL before meals <200 mg/dL all other times of the day Specimen Anatomical Collection Method Collection Time Receive d Time (Source) Location / / Volume Laterality Blood specimen 07/21/2013 10:00 4 (specimen) AM EST 10:00 AM EST Willian Jones MD POINT OF CARE TEST ORDERABLE S Performing Organization Address City/State/[place] [address] [facility] documented in this encounter Visit Diagnoses Diagnosis Durand's esophagus documented in this encounter Care Teams Facialist Relationship Specialty Start Date End Date Jazmine Baer MD PCP - General 11/07/10 [address] [place] [address] documented as of this encounter
--- OUTSIDE RECORDS SUMMARY | 2022-04-11 10:56 | XMS_ITS | Encounter Summary ---
:1960 Author Organization [facility] [place] [address] Care Team Providers Name Role Phone Jazmine Baer MD Primary Care Provider Reason for Visit Reason Comments Other Encounter Details Date Type Department Care Team Description 07/07/2013 Telephone [place] [facility] Bethanie Gorman APRN [facility] [place] [address] [place], [place] [id number] [phone] (Wo rk) Social History Tobacco Use Types [...] Telephone Encounter - Bethanie Gorman APRN - 07/07/2013 6:01 PM EST Attempted to contact Mr. Acevedo but no answer and left a message with call back number. documented in this encounter Plan of Treatment Upcoming Encounters Date Type Specialty Care Team Description 06/19/2022 Office Visit Rheumatology Richi Blackmon MD [facility] DR RHEUMATOLOGY [place], [place] [address] (Wo rk) Scheduled Procedures Name Priority Associated Diagnoses Date/Time EGD, UPPER GI ENDOSCOPY Family hx of colon cance r COLONOSCOPY, DIAGNOSTIC Family hx of colon cance r documented as of this encounter Visit Diagnoses Not on filedocumented in this encounter Care Teams Behavioral Health Professional Relationship Specialty Start Date End Date Jazmine Baer MD PCP - General 11/07/10 [address] [place] [address] documented as of this encounter
--- OUTSIDE RECORDS SUMMARY | 2022-04-11 10:56 | XMS_ITS | Encounter Summary ---
:1960 Author Organization [facility] [place] [address] Care Team Providers Name Role Phone Jazmine Baer MD Primary Care Provider Encounter Details Date Type Department Care Team Description 07/08/2013 Telephone Gastroenterology at [facility] [place] Ragini Woodard, [place] [address] Social History Tobacco Use Types Packs/Day [...] this encounter Miscellaneous Notes Telephone Encounter - Ragini Woodard, RN - 07/08/2013 8:37 AM EST Per Neftali Hunt CONTENT DIRECTOR: Please call pt and advise that blood sugar was too high (500) and A1c 12.0. Ask if he has taken blood sugar today and what it was? Ask who is managing his DM. If his PCP is managing, offer him referral to endocrinology here. Call to patient and detailed message left on his identified VM asking him to call back 07/10: Second call to patient. He states that his blood sugar this morning was 217. His PCP manages his blood sugars, and he just spoke with her office this morning. He declines a referral to Endocrinology at this time and will continue to work with his PCP office. documented in this encounter Plan of Treatment Upcoming Encounters Date Type Specialty Care Team Description 06/19/2022 Office Visit Rheumatology Richi Blackmon MD [facility] DR RHEUMATOLOGY [place], [place] [address] (Wo rk) Scheduled Procedures Name Priority Associated Diagnoses Date/Time EGD, UPPER GI ENDOSCOPY Family hx of colon cance r COLONOSCOPY, DIAGNOSTIC Family hx of colon cance r documented as of this encounter Visit Diagnoses Not on filedocumented in this encounter Care Teams Seamless Hosiery Knitter Relationship Specialty Start Date End Date Jazmine Baer MD PCP - General 11/07/10 [address] [place] [address] documented as of this encounter
--- OUTSIDE RECORDS SUMMARY | 2022-04-11 10:56 | XMS_ITS | Encounter Summary ---
:1960 Author Organization [facility] [place] [address] Care Team Providers Name Role Phone Jazmine Baer MD Primary Care Provider Reason for Visit Reason Onset Date Comments Medication Refill 07/09/2013 Encounter Details Date Type Department Care Team Description 07/09/2013 Refill Gastroenterology at [facility] Joann Giordano, Zinc deficiency [facility] Hilda shafer APRN (Primary Dx) [place] [address] [facility] [phone] DR GASTROENTEROLOGY DEPT [place], [place] [address] (Wo rk) Social History Tobacco [...] 06/19/2022 Office Visit Rheumatology Richi Blackmon MD [facility] ER DR RHEUMATOLOGY [place]P [place], [place] [address] (Wo rk) Scheduled Procedures Name Priority Associated Diagnoses Date/Time EGD, UPPER GI ENDOSCOPY Family hx of colon cance r COLONOSCOPY, DIAGNOSTIC Family hx of colon cance r documented as of this encounter Visit Diagnoses Diagnosis Zinc deficiency - Primary Mineral deficiency, 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
--- OUTSIDE RECORDS SUMMARY | 2022-04-11 10:56 | XMS_ITS | Encounter Summary ---
:1960 Author Organization [facility] [place] [address] Care Team Providers Name Role Phone Jazmine Baer MD Primary Care Provider Reason for Visit Reason Onset Date Comments Other 08/11/2013 Disability paperwork not received Encounter Details Date Type Department Care Team Description 08/11/2013 Telephone Hematology and Oncology Princess Major, Other (Disability at [facility] RN paperwork not received) [place] [address] Social History Tobacco Use Types Packs/Day [...] Telephone Encounter - Princess Major, RN - 08/11/2013 1:22 PM EST Received eD message from clinical social secretary with request to contact [facility] and notify them if disability paperwork and request for medical records had not been received. Left message for Vanessa at [facility] to notify her that above fax had not been received and asked her to re-fax request to Dr Evangelista [phone]. RN will continue to follow. documented in this encounter Plan of Treatment Upcoming Encounters Date Type Specialty Care Team Description 06/19/2022 Office Visit Rheumatology Richi Blackmon MD [facility] ER DR RHEUMATOLOGY [place], [place] [address] (Wo rk) Scheduled Procedures Name Priority Associated Diagnoses Date/Time EGD, UPPER GI ENDOSCOPY Family hx of colon cance r COLONOSCOPY, DIAGNOSTIC Family hx of colon cance r documented as of this encounter Visit Diagnoses Not on filedocumented in this encounter Care Teams Fur Clipper Relationship Specialty Start Date End Date Jazmine Baer MD PCP - General 11/07/10 [address] [place] [address] documented as of this encounter
--- OUTSIDE RECORDS SUMMARY | 2022-04-11 10:56 | XMS_ITS | Encounter Summary ---
:1960 Author Organization [facility] [place] [address] Care Team Providers Name Role Phone Jazmine Baer MD Primary Care Provider Encounter Details Date Type Department Care Team Description 07/21/2013 Hospital Encounter Gastroenterology at [facility] Brian Brunson MD [facility] [place] [address] [facility] Willian López MD [facility] [place] [address] [place] [address] Angel Olson MD [facility] [place] [address] [phone] Royer Temple MD [facility] [place] [address] Social History Tobacco Use Types Packs/Day Years [...] you need to be checked. Saturday-Saturday Clinic [phone] 8a-5p Same Day Endo [phone]-8p Otherwise contact [phone] and ask to speak to the rubber goods inspector construction person Follow up care is a mendez part [...] Care Everywhere. COLON POLYPS: AFTER YOUR VISIT (AUSTRALIAN)UPPER GI ENDOSCOPY: WHAT TO EXPECT AT HOME (AUSTRALIAN)documented in this encounter Medications at Time of [...] Temple MD - 07/21/2013 12:25 PM EST [facility] Operative Note Patient Name: Bucky Acevedo : [id number] MR#: [id number] Case Date: 07/21/2013 Surgeon: Surgeon(s) and Role: [...] MD [facility] [address] RHEUMATOLOGY [place], [place] [address] (Wo rk) Scheduled Procedures Name Priority Associated Diagnoses Date/Time EGD, UPPER GI ENDOSCOPY Family hx of colon cance r COLONOSCOPY, DIAGNOSTIC Family hx of colon cance r documented as of this encounter Procedures Procedure Name Priority Date/Time Associated Comments Diagnosis NON-SKEIN TIER FINAL REPORT Routine 07/21/2013 12:25 Res ults for this PM EST procedure are i n the results section. NON-SKEIN TIER FINAL REPORT Routine 07/21/2013 12:25 Res ults [...] results section. documented in this encounter Results Non-Wrestling Coach Final Report (07/21/2013 12:25 PM EST) Component Value Ref Test Analysis Performed At [facility] Range Method Time Signature Non-Wrestling Coach CERNER Final Report ? [facility] ? Provider: ?? ROYER TEMPLE ?Pt. Name: ?? FAROOQ ON, BUCKY Arboleda ? Acc #: ?[id number] ?Pt. MRN: ?[id number] ? Col Date: ?? 4 ? /Sex: [...] City/State/[place] [address] [facility] Non-Wrestling Coach Final Report (07/21/2013 12:25 PM EST) Component Value Ref Test Analysis Performed At [facility] Range Method Time Signature Non-Wrestling Coach [facility] Final Report ? [facility] ? Provider: ?? ROYER TEMPLE ?Pt. Name: ?? SIMPS ON, BUCKY Robles ? Acc #: ?[id number] ?Pt. MRN: ?[id number] ? Col Date: ?? 4 ? /Sex: ?1960,(53 years),Male ? Rec Date: ?? 07/21/2013 ? LOC: ?4T ? CYTOPATHOLOGY: ??NGYN ? ---Adequacy--- ? Specimen submitted is satisfactory. ? ---Cytopathologic Diagnosis--- ? See Comment ? 07/22/13 ?Screened by: ? REP ? Rescreened by: ?? FR,XL,X ? 07/27/13 ?Verified by: ? Hetal Osorio MD ?Pathol ogist ? (Electronic Signature) ? ---Comment--- [...] Findings: ?(not provided) ? Gross Description: ? [facility] ? Provider: ?? ROYER TEMPLE ?Pt. Name: ?? FAROOQ ON, BUCKY Arboleda ? Acc #: ?[id number] ?Pt. MRN: ?[id number] ? Col Date: ?? 4 ? /Sex: [...] Organization Address City/State/[place] [address] [facility] Surgical Pathology Report (07/21/2013 12:25 PM EST) Component Value Ref Test Analysis Performed At [facility] gist Range Method Time Signature [facility] ? [facility] Report ? Provider: ?? ROYER TEMPLE ?Pt. Name: ?? FAROOQ ON, BUCKY Arboleda ? Acc #: ?[id number] ?Pt. MRN: ?[id number] ? Col Date: ?? 4 ? /Sex: [...] criteria and other diagnostic ? tests. ? [facility] ? Provider: ?? ROYER TEMPLE ?Pt. Name: ?? FAROOQ ON, BUCKY C ? Acc #: ?[id number] ?Pt. MRN: ?[id number] ? Col Date: ?? 4 ? /Sex: [...] City/State/[place] [address] COLLIN WALTER Specimen to Pathology (surgical or derm) (07/21/2013 [...] City/State/[place] [address] CERNER MILLENNIUM Specimen to Pathology (surgical or derm) (07/21/2013 12:25 PM EST) Specimen Anatomical Collection Method Collection Time Receive d Time (Source) Location / / Volume Laterality AP Specimen 07/21/2013 12:25 07/21/2013 PM EST 12:25 PM EST Narrative CERNER MILLENNIUM - 07/21/2013 12:25 PM EST Specimen requisition ordered. ??Separate Pathology report to follow Jayson Andrade MD PATHOLOGY/CYTOLOGY ORDERABLE S Performing Organization Address City/[facility]/[place] [address] CERNER MILLENNIUM Specimen to Pathology (surgical or derm) (07/21/2013 [...] City/State/[place] [address] CERNER MILLENNIUM Specimen to Pathology (surgical or derm) (07/21/2013 [...] City/State/[place] [address] CERNER MILLENNIUM Cytopathology Non-Gynecological (07/21/2013 12:25 PM EST) Specimen Anatomical Collection Method Collection Time Receive d Time (Source) Location / / Volume Laterality AP Specimen 07/21/2013 12:25 07/21/2013 PM EST 12:25 PM EST Narrative [facility] - 07/21/2013 12:25 PM EST Specimen requisition ordered. ??Separate Pathology report to follow Royer Temple MD PATHOLOGY/CYTOLOGY ORDERABLE S Performing Organization Address City/State/ZIP Code Phon e Number [address] [facility] Cytopathology Non-Gynecological (07/21/2013 12:25 PM EST) Specimen Anatomical Collection Method Collection Time Receive d Time (Source) Location / / Volume Laterality AP Specimen 07/21/2013 12:25 07/21/2013 PM EST 12:25 PM EST Narrative [facility] - 07/21/2013 12:25 PM EST Specimen requisition ordered. ??Separate Pathology report to follow Royer Temple MD PATHOLOGY/CYTOLOGY ORDERABLE S Performing Organization Address City/State/ZIP Code Phon e Number [address] [facility] Cytopathology Non-Gynecological (07/21/2013 12:25 PM EST) Specimen Anatomical Collection Method Collection Time Receive d Time (Source) Location / / Volume Laterality AP Specimen 07/21/2013 12:25 07/21/2013 PM EST 12:25 PM EST Narrative [facility] - 07/21/2013 12:25 PM EST Specimen requisition ordered. ??Separate Pathology report to follow Jayson Andrade MD PATHOLOGY/CYTOLOGY ORDERABLE S Performing Organization Address City/State/ZIP Code Phon e Number [address] [facility] UPPER GI ENDOSCOPY (07/21/2013 10:55 AM EST) [facility] Method Time Signature UPPER GI [facility] ENDOSCOPY Endoscopy Patient Name: Bucky Acevedo ? Procedure Date: 07/21/2013 10:55 AM ? Date of : 1960 ? Age: 53 ? Order #: [id number] ? Procedure: ? Upper GI endoscopy Indications: ? Dyspepsia, Follow-up of Durand's ? esophagus Providers: ? Royer Temple MD, Jayson Stout ? MD Raymond, Noemy Ontiveros, RN, ? Betty Ureña RN, Krist in ? Sachin, Steel Melter Referring MD: ?Jazmine Baer MD Medicines: ? Monitored Anesthesia [...] classified as ? Durand's stage C1-M2 per [place] criteria present in ? the lower third [...] classified as Durand's stage C1-M2 ? per [place] criteria. Biopsied . ? - Hiatus hernia. [...] Volume Laterality 07/21/2013 10:55 AM EST Jazmine Bare MD GENERAL SURGICAL ORDERABLES Performing Organization Address City/State/ZIP Code Phon e Number [facility] COLONOSCOPY (07/21/2013 10:53 AM EST) [facility] Method Time Signature COLONOSCOPY [facility] Endoscopy Patient Name: Bucky Acevedo ? Procedure Date: 07/21/2013 10:53 AM ? Date of : 1960 ? Age: 53 ? Order #: [id number] ? Procedure: ? Colonoscopy Indications: ? Screening for colorectal malignant ? neoplasm Providers: ? Royer Temple MD, Jayson Stout ? MD Raymond, Noemy Ontiveros RN, ? Betty Ureña RN, Michael in ? Sachin, Steel Melter Referring : ?Jazmine Baer MD, Bethanie Arboleda. ? Sherif, AIR BRAKE TESTER Medicines: ? Monitored Anesthesia Care Complications: ? [...] Component Value Ref Test Analysis Performed At [facility] Method Time Signature UPPER [facility] ENDOSCOPIC Endoscopy ULTRASOUND _ Patient Name: Bucky Acevedo ? Procedure Date: 07/21/2013 10:47 AM ? Date of : 1960 ? Age: 53 ? Order #: [id number] ? Procedure: ? Upper EUS Indications: ? Pancreatic cyst on CT scan Providers: ? Royer Temple MD, Jayson Stout ? MD Raymond, Betty peña RN, ? Noemy Ontiveros RN, Francia keys, ? Steel Melter Referring : ?Jazmine Baer MD, Bethanie C. ? Sherif, AIR BRAKE TESTER Medicines: ? Monitored Anesthesia Care, Cirpo ? [...] 243 (H) 60 - 199 CERNER mg/dL MILLENNIUM Comment: Supplemental ranges: <110 mg/dL before meals <200 mg/dL all other times of the day Specimen Anatomical Collection Method Collection Time Receive d Time (Source) Location / / Volume Laterality Blood specimen 07/21/2013 10:00 4 (specimen) AM EST 10:00 AM EST Willian Jones MD POINT OF CARE TEST ORDERABLE S Performing Organization Address City/State/[place] [address] CERNER MILLENNIUM documented in this encounter Visit Diagnoses Not on filedocumented in this encounter Care Teams Food Broker Relationship Specialty Start Date End Date Jazmine Baer MD PCP - General 11/07/10 [address] [place] [address] documented as of this encounter
--- OUTSIDE RECORDS SUMMARY | 2022-04-11 10:56 | XMS_ITS | Encounter Summary ---
:1960 Author Organization [place] [address] Care Team Providers Name Role Phone Jazmine Baer MD Primary Care Provider Encounter Details Date Type Department Care Team Description 03/17/2014 Hospital Encounter Laboratory PalaciosFermín wilson Cirrhosis of liver; [facility] MD [place] [facility] [address] GASTROENTEROLOGY [phone] [place] [address] Social History Tobacco Use Types Packs/Day Years [...] Visit Rheumatology Richi Blackmon MD [facility] DR RHEUMATOLOGY [place], [place] [address] (Wo rk) Scheduled Procedures Name Priority Associated Diagnoses Date/Time EGD, UPPER GI ENDOSCOPY Family hx of colon cance r COLONOSCOPY, DIAGNOSTIC Family hx of colon cance r documented as of this encounter Procedures Procedure Name Priority Date/Time Associated Comments Diagnosis HEMOGRAM Routine 03/17/2014 4:40 PM Cirrhosis of liver Res ults for this EDT procedure are i n the results section. DIFFERENTIAL, Routine 03/17/2014 4:40 PM Cirrhosis of liver Re sults for this AUTOMATED EDT procedure are i n the results section. ZINC Routine 03/17/2014 4:40 PM Cirrhosis of liver Res ults for this EDT procedure are i n the results section. AFP TUMOR MARKER Routine 03/17/2014 4:40 PM Cirrhosis of liver Results for this EDT procedure are i n the results section. PROTHROMBIN TIME Routine 03/17/2014 4:40 PM Cirrhosis of liver Results for this EDT procedure are i n the results section. CBC (WITH DIFF) Routine 03/17/2014 4:40 PM Cirrhosis of liver EDT CK Routine 03/17/2014 4:40 PM Myopathy Results f or this EDT procedure are i n the results section. COMPREHENSIVE Routine 03/17/2014 4:40 PM Cirrhosis of liver Re sults for this METABOLIC PANEL EDT procedure ar e in (NON-FASTING) the results section. documented in this encounter Results Differential, Automated (03/17/2014 4:40 PM EDT) athologist Signature Neutrophils % 55.9 % CERNER MILLENNIUM Neutr Abs (ANC) 2.42 1.50 - CERNER 6.30 MILLENNIUM x10(3)/mcL Lymphocytes % 31.2 % CERNER MILLENNIUM Lymphocytes Abs 1.4 1.0 - 3.6 CERNER x10(3)/mcL MILLENNIUM Monocytes % 8.3 % CERNER MILLENNIUM Monocyte Abs 0.4 0.2 - 1.0 CERNER x10(3)/mcL MILLENNIUM Eosinophils % 3.9 % CERNER MILLENNIUM Eosinophils Abs 0.2 0.0 [...] Organization Address City/State/[place] [address] CERNER MILLENNIUM (ABNORMAL) Hemogram (03/17/2014 4:40 PM EDT) athologist Signature WBC 4.3 4.0 - 10.0 CERNER x10(3)/mcL MILLENNIUM RBC 3.54 (L) 4.63 - CERNER 6.08 MILLENNIUM x10(6)/mcL Hemoglobin 10.0 (L) 13.7 - CERNER 17.5 gm/dL MILLENNIUM Hematocrit 30.6 (L) 40.0 - CERNER 51.0 % MILLENNIUM MCV 86.4 79.0 - CERNER 92.0 fL [facility] MCH 28.2 25.6 - CERNER 32.2 pg [facility] MCHC 32.7 32.0 - CERNER 36.5 gm/dL [facility] Platelets 137 (L) 145 - 370 CERNER x10(3)/mcL MILLENNIUM RDWSD 52.8 (H) 35.0 - CERNER 46.0 fL [facility] RDWCV 16.5 (H) 10.9 - CERNER 14.4 % MILLENNIUM MPV 10.8 9.0 - 12.0 CERNER fL [facility] Specimen Anatomical Collection Method Collection Time Receive d Time (Source) Location / / Volume Laterality Blood specimen 03/17/2014 4:40 PM 014 4:49 (specimen) EDT PM EDT Resulting Agency Comment Spec In Lab Fermín Palacios MD HEMATOLOGY ORDERABLES Performing Organization Address City/[facility]/ZIP Code Phon e Number [address] [facility] (ABNORMAL) CK (03/17/2014 4:40 PM EDT) athologist Signature CK, Total 3555 (H) 0 - 200 CERNER unit/L [facility] Specimen Anatomical Collection Method Collection Time Receive d Time (Source) Location / / Volume Laterality Blood specimen 03/17/2014 4:40 PM 014 4:49 (specimen) EDT PM EDT Resulting Agency Comment Spec In Lab Celso Casiano MD CHEMISTRY ORDERABLES Performing Organization Address City/[facility] Code Phon e Number [address] [facility] AFP tumor marker (03/17/2014 4:40 PM EDT) athologist Signature AFP 5.1 <=8.3 ng/mL CERNER MILLENNIUM Specimen Anatomical Collection Method Collection Time Receive d Time (Source) Location / / Volume Laterality Blood specimen 03/17/2014 4:40 PM 014 4:49 (specimen) EDT PM EDT Resulting Agency Comment Spec In Lab Fermín Palacios MD CHEMISTRY ORDERABLES Performing Organization Address [facility] Phon e Number [address] CERNER MILLENNIUM (ABNORMAL) Prothrombin Time (03/17/2014 4:40 PM EDT) athologist Signature PT 21.1 (H) 12.5 - 15.5 CERNER sec MILLENNIUM Comment: [facility] Transfusion Committee Guidelines: I NR less than 2.0, PTT less than OR equal to 43.5 seconds, or Fibrinogen gre ater than or equal to 100 mg/dl indicate adequate procoagulant activity for hemostasis in patients without underlying bleeding disorders. INR 1.7 (H) 0.9 - 1.1 CERNER MILLENNIUM Specimen Anatomical Collection Method Collection Time Receive d Time (Source) Location / / Volume Laterality Blood specimen 03/17/2014 4:40 PM 014 4:49 (specimen) EDT PM EDT Resulting Agency Comment Spec In Lab Fermín Palacios MD HEMATOLOGY ORDERABLES Performing Organization Address [facility] Phon e Number [address] CERNER MILLENNIUM (ABNORMAL) Comprehensive metabolic panel (non-fasting) (03/17/2014 4:40 PM EDT) athologist Signature Glucose Lvl 107 60 - 199 CERNER mg/dL MILLENNIUM Comment: Diabetes: >=200 mg/dL plus symp toms BUN 13 10 - 20 mg/dL CERNER MILLENNIU M Creatinine 1.04 0.80 - 1.50 mg/dL CERNER MILL ENNIUM Comment: Please note that the pediatric reference intervals supplied above were not validated at [facility]. Results from pediatri c patients should be interpreted in conjunction to the patient's age, height and muscle mass. Sodium 139 135 - 145 mmol/L CERNER ELISE NIUM Potassium 3.7 3.5 - 5.0 mmol/L CERNER ELISE NIUM [...] - 8.3 gm/dL CERNER MIL LENNIUM Albumin 3.5 3.2 - 5.2 gm/dL CERNER MILLENN IUM AST 116 (H) 0 - 39 unit/L CERNER MILLENNIU M ALT 98 (H) 0 - 55 unit/L CERNER MILLENNIU [...] the following links into your internet browser. [email or web address] [email or web address] Specimen Anatomical Collection Method Collection Time Receive d Time (Source) Location / / Volume Laterality Blood specimen 03/17/2014 4:40 PM 014 4:49 (specimen) EDT PM EDT Resulting Agency Comment Spec In Lab Fermín Palacios MD CHEMISTRY ORDERABLES Performing Organization Address City/State/[place] [address] [facility] [address] CERNER MILLENNIUM (ABNORMAL) Zinc (03/17/2014 4:40 PM EDT) athologist Signature Zinc 0.57 (L) 0.66 - 1.10 CERNER mcg/mL MILLENNIUM Comment: Test Performed by: [facility] [address] [place] [address] Bar Captain: Nikia Morton Specimen Anatomical Collection Method Collection Time Receive d Time (Source) Location / / Volume Laterality Blood specimen 03/17/2014 4:40 PM 014 8:34 (specimen) EDT AM EDT Resulting Agency Comment Spec In Lab Fermín Palacios MD CHEMISTRY ORDERABLES Performing Organization Address City/State/[place] [address] [facility] [address] CERNER MILLENNIUM documented in this encounter Visit Diagnoses Diagnosis Cirrhosis of liver Cirrhosis of liver without mention of al cohol Myopathy Myopathy, unspecified documented in this encounter Care Teams Sports Trainer Relationship Specialty Start Date End Date Jazmine Baer MD PCP - General 11/07/10 [address] [place] [address] documented as of this encounter
--- OUTSIDE RECORDS SUMMARY | 2022-04-11 10:56 | XMS_ITS | Encounter Summary ---
:1960 Author Organization [facility] [place] [address] Care Team Providers Name Role Phone Jazmine Baer MD Primary Care Provider Encounter Details Date Type Department Care Team Description 09/17/2013 Telephone Neurology at [facility] Ruperto Mcclellan MD [facility] [place] [address] NEUROLOGY DEPT [phone] [place] [id number] (Wo rk) Social History Tobacco Use Types [...] Telephone Encounter - Ruperto Mcclellan MD - 09/17/2013 2:28 PM EDT Received lab valued from 09/11/13 done at [facility]. WBC 5, Hb 10.1, Hct 32, Plt 94 Na 135, K 4.8, Cl 100, CO2 21.5, BUN 17, Cr 1.2, Glc 221, Ca 8.9 Protein 9.4, T bili 0.53, AST 42, ALT 37, albumin 2.8, CK 719 ESR >120 Last CK was 452 on 06/21/13, increased to 719 above Called patient. He is doing better in terms of joint pain, most pain is in R knee now. Took some indomethacin and pain improved. IVIG scheduled next week. Discussed that the pain can still be unrelatedto his myopathy but if he has worsening even after the IVIG and cannot be explained by any other process, we should re-evaluate for his immunotherapy. Above also relayed to the PCP's office. documented in this encounter Plan of Treatment Upcoming Encounters Date Type Specialty Care Team Description 06/19/2022 Office Visit Rheumatology Richi Blackmon MD [facility] ER DR RHEUMATOLOGY [place], [place] [address] (Wo rk) Scheduled Procedures Name Priority Associated Diagnoses Date/Time EGD, UPPER GI ENDOSCOPY Family hx of colon cance r COLONOSCOPY, DIAGNOSTIC Family hx of colon cance r documented as of this encounter Visit Diagnoses Not on filedocumented in this encounter Care Teams Outboard Motor Tester Relationship Specialty Start Date End Date Jazmine Baer MD PCP - General 11/07/10 [address] [place] [address] documented as of this encounter
--- OUTSIDE RECORDS SUMMARY | 2022-04-11 10:56 | XMS_ITS | Encounter Summary ---
:1960 Author Organization [place] [address] Care Team Providers Name Role Phone Jazmine Baer MD Primary Care Provider Encounter Details Date Type Department Care Team Description 11/05/2013 Telephone Hematology and Oncology at [facility] Alem wilson MD [facility] Hilda shafer HEMATOLOGY/[place] [address] [place] [address] [phone] (Wo rk) Social History Tobacco Use Types [...] this encounter Miscellaneous Notes Telephone Encounter - Alem Evangelista MD - 11/05/2013 11:13 AM EDT I called Mr. Acevedo today in followup from her appointment yesterday. His labs are essentially stable from his last appointment. His creatinine is now down to 1.3 and I calculated his creatinine clearance using Cockcroft-Gault formulation and his creatinine clearance is over 80. Given the improvementin the creatinine and creatinine clearance he will no longer be a candidate for erythropoietin supplementation. Instead, I will see him back in clinic at [facility] in 3-4 months with repeat labs including iron studies and sedimentation rate. Mr. Acevedo understood and agreed to the plan. documented in this encounter Plan of Treatment Upcoming Encounters Date Type Specialty Care Team Description 06/19/2022 Office Visit Rheumatology Richi Blackmon MD [facility] ER DR RHEUMATOLOGY [place], [place] [address] (Wo rk) Scheduled Procedures Name Priority Associated Diagnoses Date/Time EGD, UPPER GI ENDOSCOPY Family hx of colon cance r COLONOSCOPY, DIAGNOSTIC Family hx of colon cance r documented as of this encounter Visit Diagnoses Not on filedocumented in this encounter Care Teams Optics Technical Officer Relationship Specialty Start Date End Date Jazmine Baer MD PCP - General 11/07/10 [address] [place] [address] documented as of this encounter
--- OUTSIDE RECORDS SUMMARY | 2022-04-11 10:56 | XMS_ITS | Encounter Summary ---
:1960 Author Organization [facility] [place] [address] Care Team Providers Name Role Phone Jazmine Baer MD Primary Care Provider Encounter Details Date Type Department Care Team Description 09/01/2013 Office Visit Neurology at [facility] [place] Alejandracollin Cooper, Myositis (Primary Dx) [facility] Vladimir Echavarria MD [address] [phone] [facility] [phone] [place] [address] (Wo rk) Social History Tobacco Use Types [...] Reading Time Taken Comments Blood Pressure 122/63 09/01/2013 1:15 PM EDT Pulse 61 09/01/2013 1:15 PM EDT Temperature - - Respiratory Rate - - Oxygen Saturation - - Inhaled Oxygen Concentration - - Weight 111.6 kg (246 lb) 09/01/2013 1:15 PM EDT Height 172.7 cm (5' 8) 09/01/2013 1:15 PM EDT Body Mass Index 37.4 09/01/2013 1:15 PM EDT documented in this encounter Progress Notes Ruperto Mcclellan MD - 09/01/2013 1:52 PM EDT Neurology Clinic Note Patient Name: Bucky Acevedo : 1960 PCP: JAZMINE BAER MD Clinic Attending: Dr. Roberts Patient ID: Bucky Acevedo is a 53 y.o. man being seen in Neurology clinic for immune mediated myopathy here for a scheduled FU visit (detailed below). Patient was last seen by me in Jan 2013. Patient Active Problem List Diagnosis ??? Hepatosplenomegaly Overview Note: US abdomen ??? Nausea and vomiting ??? Diabetes mellitus type II ??? 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 Usually followed by Dr. Bucky Marie at [facility] ?? In late 2008 symptoms began (pain in back & RLE, progressive weakness with walking in settingof being on statin x about 9 years) ?? Jun 2009: seen in Neurology for progressive muscle weakness --> myopathy with elevated CK (5000s) ?? Muscle biopsy slides reviewed by Dr. Ricardo in [place], reportedly consistent with necrotizing myopathy ?? Paraneoplastic work up negative ?? Was on prednisone previously ?? MTX and monthly IVIG infusions ?? IVIG seems to be the only effective treatment to him, CK decreasing ?? Workup: ?? TPMT enzyme activity 08/2009 normal ?? Myositis Antibody Panel Plus 06/2009 negative (anti-Kiesha, PM/SCL, AZ-2, PL-7, PL-12, EJ, OJ KU, U2 SN PROGRAM ARRANGER, SRP) ?? mitochondrial mutations: Absence of all [...] for referral) ?? RTC in 6 months Interval History: For GI work up, he has been found to have liver hemangioma, pancreatic lesion, cirrhosis, florian's esophagus, along with confirmation of uncontrolled DM. IVIG was stopped in Apr to Jul during the GI work up. During that time, he did not have any significant worsening of weakness but some increase in hard time getting out of bed. Back to just IVIG now, off MTX since last summer. Stopped seeing Dr. Olivera since the last summer and wishes to just follow up here (too much travelling to go to [place]). Seen GI for chronic GI upset, improving. Seen Hem/Onc for thrombocytopenia and anemia, plt count improving. Still feeling fatigued but not much falls anymore, PT has helped. Still has back pain, worsening x 6 months, taking ultram 100mg BID with minimal relief, PCP is proposing him to take morphine but he has not started this. DM still very poorly controlled. Patient admits to very poor diet. Smoking: denies EtOH: denies Past Medical History Diagnosis Date ??? Diabetes ??? Hypertension ??? Hyperlipidemia ??? Gout ??? Obesity ??? Kidney stone ??? 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 Shingles 2009 ??? DM II (diabetes mellitus, type II), controlled ??? Cirrhosis Medications: Current Outpatient Prescriptions on File Prior to Visit Medication Sig Dispense Refill ??? rifaximin (XIFAXIN) 550 mg Tab tablet Take 1 tablet by mouth 2 times daily. 60 tablet 11 ??? omeprazole (PRILOSEC) 40 mg capsule Take 1 capsule by mouth daily. 30 capsule 12 ??? ondansetron (ZOFRAN) 4 mg tablet [...] Take 2 tablets by mouth daily. ??? metFORMIN (GLUCOPHAGE) 500 mg tablet Take 500 mg by mouth 2 times daily (with meals). ??? atenolol (TENORMIN) 100 mg tablet Take 50 mg by mouth daily. ??? immune globulin,hum,,capr,IGG, (GAMUNEX) 10 % Inj infusion Inject into the vein. Receiving IVIG treatments for 2 consecutive days at the start of each month. ??? folic acid (FOLVITE) 1 mg tablet Take 1 mg by mouth daily. ??? traMADol (ULTRAM) 50 mg tablet Take 100 mg by mouth 2 times daily. ??? [DISCONTINUED] zinc sulfate (ZINCATE) 220 (50) mg capsule Take 1 capsule by mouth 2 times daily.60 capsule 5 Current Facility-Administered Medications on File Prior to Visit Medication Dose Route Frequency Provider Last Rate Last Dose ??? gadobutrol (GADAVIST) 10 mmol/10 mL (1 mmol/mL) injection 11.34 mL 0.1 mL/kg Intravenous Once PRN Clifton Mijares MD Allergy: Allergies Allergen Reactions ??? Azrejsn-Owk-Mpp Reductase Inhibitors Myopathy Review of systems: Constitutional: [...] systems otherwise negative Physical Exam: Vitals: Temp: -- Heart Rate: [61] Resp: -- BP: (122)/(63) SpO2: -- Gen: Patient of apparent stated age, well nourished, well developed, awake, alert, NAD Neck: Supple, no meningismus CV: + S1, S2, RRR, no murmur Resp: CTA B/L Abd: +normoactive bowel sounds, soft, nontender, nondistended Ext: No edema. No bony deformity Neuro Exam: MS: AAOx4, clear language, no dysarthria, follows commands CN: PERRL, EOMI, visual cano full Facial sensation intact, no facial asymmetry Hearing intact to finger rub Palate elevates symmetrically, tongue protrudes midline SCM and trap strength intact Motor: Normal bulk and tone. UE: 5/5 R, 5/5 L Arm abduction at shoulder 5/5 R, 5/5 L Elbow extension 5/5 R, 5/5 L Elbow flexion 5/5 R, 5/5 L Water Purification Chemist LE: 4/5 R, 4/5 L Hip flexion (3/5 R in Jan 2013) 5/5 R, 5/5 L Knee extension 5/5 R, 5/5 L Knee flexion 5/5 R, 5/5 L Foot dorsiflexion 5/5 R, 5/5 L Foot plantar flexion Sensation: Impaired proprioception and light touch of L toes Reflexes: DTRs 1+ throughout Coordination: LAURA and finger tapping smooth & symmetric No tremor Gait: mild waddling gait Labs: 06/11/13 CK 452 02/05/13 WBC 5, Hb 10.3, Hct 32.4, Plt 64 Na 132, K 3.7, Cl 100, CO2 22, BUN 24, Cr 1.14, Glc 178, Ca 8.7, Tprot 7.9, Alb 2.8, Tbili 1, Alk phos 121, AST 38, ALT 27 Ferritin 894, folate 7.4, iron 76, TIBC 263, iron sat 29, B12 842 CK 286 Diagnostic Tests and Imaging: No new imaging studies Assessment / Plan: Bucky Acevedo is a 53 y.o. man with necrotizing myopathy of unclear etiology previously treated with steroids, MTX, currently just on monthly IVIG. Continues to have back pain but still without any signs of severe radiculopathy. GI symptoms improving and he is following with GI and Hem/Onc, as wellas PCP for DM. Thrombocytopenia improving. Exam again, slightly improved since the last visit. Seemsto have diabetic neuropathy in distal LEs. CK being monitored and stable. -consider gabapentin or amitriptyline for back pain (will defer to PCP) -continue IVIG 2 days per month -recheck CK at the next visit -continue to FU with GI, Hem/Onc, PCP -DM control -continue home PT -RTC in [address] Alejandra Mcclellan MD Neurology Resident, PGY3 Pager [phone] NEUROLOGY ATTENDING PHYSICIAN ATTESTATION NOTE: I have reviewed the above resident's history during the visit and I agree with the details as written. My physical examination confirms the resident's findings. The assessment and plan were formulated in discussion with me at the time of the visit and I agree with them as documented. 53 yo man with chronic necrotizing myopathy (immune mediated, possibly triggered by statin therapy).Biopsy proven. Stable on IVIg therapy. No methotrexate. We will continue IVIg, neoplastic survellance. If any worsening, should call us immediately. Vladimir Cooper MD Adult Neurology Clinical Neurophysiology documented in this encounter Plan of Treatment Upcoming Encounters Date Type Specialty Care Team Description 06/19/2022 Office Visit Rheumatology Richi Blackmon MD [facility] DR RHEUMATOLOGY [place], [place] [address] (Wo rk) Scheduled Procedures Name Priority Associated Diagnoses Date/Time EGD, UPPER GI ENDOSCOPY Family hx of colon cance r COLONOSCOPY, DIAGNOSTIC Family hx of colon cance r documented as of this encounter Visit Diagnoses Diagnosis Myositis - Primary Mylagia and myositis, unspecified documented in this encounter Care Teams Licensed Sales Producer Relationship Specialty Start Date End Date Jazmine Baer MD PCP - General 11/07/10 [address] [place] [address] documented as of this encounter
--- OUTSIDE RECORDS SUMMARY | 2022-04-11 10:56 | XMS_ITS | Encounter Summary ---
:1960 Author Organization [facility] [place] [address] Care Team Providers Name Role Phone Jazmine Baer MD Primary Care Provider Reason for Visit Reason Onset Date Comments Other 10/26/2013 IVIG issues Encounter Details Date Type Department Care Team Description 10/26/2013 Telephone Neurology at [facility] Ruperto Mcclellan MD Other (IVIG issues) [facility] [place] [phone] NEUROLOGY DEPT [place] [phone] (Wo rk) Social History Tobacco Use Types [...] Telephone Encounter - Ruperto Mcclellan MD - 10/27/2013 1:44 PM EDT Called patient. Last Saturday during the IVIG infusion via his port, he had pain across the chest near the port. On Saturday he had another infusion with similar symptoms. On Saturday night he had hot flashes and cold chills, nausea, sweating. This persisted on Saturday and . This past weekend, he started feeling stiff over L neck above the port. He called his PCP and is scheduled for an ultrasound to look for any blood clot, and waiting for a call back for an appt to see his PCP. He will call with updates. Telephone Encounter - Uma Manriquez - 10/26/2013 9:25 AM EDT Patient calls to say that he has had a lot of side effects from his IVIG infusions. He has been having pain in his nec, trouble swallowing, headache and so on. Please call him back tomorrow as he is aware that Dr. Mcclellan is out on Saturday. Pt will call his PCP today and let them know as well. documented in this encounter Plan of Treatment Upcoming Encounters Date Type Specialty Care Team Description 06/19/2022 Office Visit Rheumatology Richi Blackmon MD [facility] DR RHEUMATOLOGY [place], [place] [address] (Wo rk) Scheduled Procedures Name Priority Associated Diagnoses Date/Time EGD, UPPER GI ENDOSCOPY Family hx of colon cance r COLONOSCOPY, DIAGNOSTIC Family hx of colon cance r documented as of this encounter Visit Diagnoses Not on filedocumented in this encounter Care Teams Health And Wellness Sales Consultant Relationship Specialty Start Date End Date Jazmine Baer MD PCP - General 11/07/10 [address] [place] [address] documented as of this encounter
--- OUTSIDE RECORDS SUMMARY | 2022-04-11 10:56 | XMS_ITS | Encounter Summary ---
:1960 Author Organization [place] [address] Care Team Providers Name Role Phone Jazmine Baer MD Primary Care Provider Encounter Details Date Type Department Care Team Description 09/03/2013 Follow-Up Gastroenterology at [facility] Bethanie Gorman, GI problem (Primary [facility] Hilda shafer APRN Dx) [place] [address] [place] [address] [place] [address] Social History Tobacco Use Types Packs/Day [...] Sign Reading Time Taken Comments Blood Pressure 137/70 09/03/2013 1:10 PM EDT Pulse 58 09/03/2013 1:10 PM EDT Temperature - - Respiratory Rate 20 09/03/2013 1:10 PM EDT Oxygen Saturation - - Inhaled Oxygen Concentration - - Weight 114.3 kg (252 lb) 09/03/2013 1:10 PM EDT Height 172.7 cm (5' 8) 09/03/2013 1:10 PM EDT Body Mass Index 38.32 09/03/2013 1:10 PM EDT documented in this encounter Patient Instructions Patient InstructionsBethanie Gorman APRN - 09/03/2013 1:47 PM EDT 1. Prilosec 40 mg daily 2. Zofran as needed 3. Tigan as needed 4. Dulcolax 10 mg suppository daily as needed 5. Schedule your appointment with Kajal Giordano APRN re: liver 6. Follow up in 6 months Bethanie Gorman APRN [phone] documented in this encounter Progress Notes Bethanie Gorman APRN - 09/03/2013 12:46 PM EDT Subjective: Patient ID: Bucky Acevedo is a 53 y.o. man who presents for follow up of his gastrointestinal symptoms. HPI Comments: Initial visit 04/02/2013: Mr. Acevedo is a pleasant 53 year old man with a hx significant for DM II, inclusion body myositis and arthritis who presents for consultation of his nausea and vomiting. Symptoms have been present since 2008. States that nausea and vomiting were constant but now occur intermittently. Admits to N/V once a week. It is unpredictable. Periodically wakes up at night secondary to N/V. He reports vomiting food eaten that day. At times just experiences dry heaves. Denies abdominal pain or cramping. Unable to identify any specific triggers. Uses Zofran prn with good effect. Has been taking Prilosec 40 mg qd but notes no improvement. Has noted that N/V has improved since Methotrexate was stopped. He reports that appetite poor. Does not avoiding eating secondary to abdominal pain post prandially.No early satiety or post prandial fullness. No gas, bloating or distention post prandially. N/V doesnot occur post prandially. He reports no heartburn, regurgitation or acid taste. States that he was started on Prilosec for treatment of N/V. Weight stable. Work up to date: --EGD 2011 unsure of results per patient (no report available). PCP notes mentioned Durand's esophagus. --colonoscopy 2011 poor prep and unrevealing per patient (no report available) --US abdomen 2011 normal per patient (no report) --CT A/P 2013: normal per patient (no report available) Diet recall: breakfast~hotpocket, grape juice; lunch~skips; dinner~protein, starch. Snack~peanut butter with crackers. Drinks one regular 8 ounce soda per day. He reports having a soft bowel movement daily. Rare constipation. No diarrhea. Admits to straining and incomplete evacuation of stool. Stools are not explosive. No incontinence. No nocturnal symptoms. No blood in stool, rectal bleeding, rectal or anal pain. Most recent HbA1C 9.2 but was 7. No chronic NSAID's. He reports being anemic and is scheduled to see the supervisor tree trimming. Denies heartburn, regurgitation, acid taste, chest pain, ENT concerns, dysphagia, early satiety, post prandial fullness, gas, bloating, distended, abdominal pain or cramping. Interval Hx 09/03/2013: he reports only experiencing one episode of nausea in the last month. No vomiting. Has not required anti-emetics. No indigestion, early satiety or post prandial fullness. Taking Prilosec 40 mg qd for treatment of Durand's esophagus. Asymptomatic. He reports no change in bowel habits. Stools are soft. Has a bowel movement every 2-3 days. Admits to straining and incomplete evacuation of stool. No blood in stool, rectal bleeding, rectal or anal pain. Appetite fair. Weight stable. Remainder of ROS unremarkable. Interval Hx 06/18/2013: Mr. Acevedo is a pleasant 53 year old man who presents for follow up of his N/V. He is accompanied by his . He reports that nausea occurs 1-2 times per week and unpredictable. No vomiting since GI visit in March. Taking Tigan qd-BID as a preventative measure. Uses Zofran 1-2 times per week with relief. No nocturnal symptoms. Appetite fair. No early satiety or post prandial fullness. No indigestion, abdominal pain or cramping. He reports having a formed bowel movement every day to every other day. No diarrhea or constipation.No blood in stool, rectal bleeding, rectal or anal pain. He reports being evaluated by hematology. Refer to note in edh. Abdominal US was obtained on 05/27/2013 that revealed indeterminate slightly hyperechoic subcapsular 1.7 cm lesion as described above, possibly representing a hemangioma, though definitive characterization by ultrasound is not possible. Mild hepatosplenomegaly. Cholelithiasis and small amount of gravel/sludge. No evidence of acute cholecystitis. Most recent lab work on 06/11/2013: CBC~11.3/33.8, plts 80; CMP wnl except for creatinine 1.57, ALP 146, GGT 124. Iron studies wnl. Refer to edh. Weight stable. Remainder of ROS unremarkable. Recent tests: *Colonoscopy 07/21/2013 [facility]: hemorrhoids found on perianal exam; one 2 mm polyp in the sigmoid colon; the examined portion of the ileum was normal. Bx: hyperplastic polyp. *EGD 07/21/2013 [facility]: normal upper third of esophagus and middle third of esophagus; esophageal mucosal changes classified as Durand's stage C1-M2 per Hunt criteria; small hiatus hernia; gastritis; normal examined duodenum. Bx: distal esophagus~intestinal metaplasia, no dysplasia. Stomach~mild mild chronic gastritis. No H. Pylori. *EUS 07/21/2013 [facility]: 10mm pancreas body likely cystic lesion s/p FNA; 10mm pancreas body/tail lesions/p FNA. *SBFT 05/13/2013: Preliminary biological technician view of the abdomen reveals a normal [...] bulb but second/third portion of duodenum normal. Review of Systems Constitutional: Negative. Respiratory: Negative. Cardiovascular: Negative. Gastrointestinal: See HPI Neurological: Negative. Psychiatric/Behavioral: Negative. Allergies Allergen Reactions ??? Kzztoau-Vrk-Yor Reductase Inhibitors Myopathy Current Outpatient Prescriptions on File Prior to Visit Medication Sig Dispense Refill ??? indomethacin (INDOCIN) 25 mg capsule Take [...] 100 mg by mouth 2 times daily. Current Facility-Administered Medications on File Prior to Visit Medication Dose Route Frequency Provider Last Rate Last Dose ??? gadobutrol (GADAVIST) 10 mmol/10 mL (1 mmol/mL) injection 11.34 mL 0.1 mL/kg Intravenous Once PRN Clifton Mijares MD Vital Signs: BP 137/70; P 58; Wt ; Ht 5'8 Objective: Physical Exam Vitals reviewed. Constitutional: He is oriented to person, place, and time. He appears well- developed and well-nourished. No distress. Neurological: He is alert and oriented to person, place, and time. Skin: He is not diaphoretic. Psychiatric: He has a normal mood and affect. His behavior is normal. Judgment and thought content normal. Assessment and Plan: #Durand's esophagus: asymptomatic on Prilosec 40 mg qd. We reviewed the results of his EGD that revealed esophageal mucosal changes classified as Durand's esophagus, small HH, gastritis and normal duodenum. Bx: intestinal metaplasia, no dysplasia. Continue Prilosec 40 mg qd. GERD diet and lifestyle modifications. Repeat EGD in 3 years. #Pancreatic cyst: we discussed the results of the EUS that revealed two 10 mm pancreatic lesions in the body and body/tail. The cytology revealed benign cells but the presence of mucinous pancreas cells suggestive of a benign but potentially premalignant cyst. Recommend repeating MRI abdomen in 12 months for monitoring. #N/V: nausea much improved and vomiting resolved at this time. Discussed using anti-emetics prn. #HORTON: defer management to Kajal Giordano APRN. MRI abdomen in 6 months. Follow up with Kajal Giordano APRN as previously scheduled. #Colon cancer screening: we reviewed the results of his colonoscopy that revealed an entirely normalcolon except for one hyperplastic polyp that was removed. Recommend repeating colonoscopy in 10 years. Plan: 1. Prilosec 40 mg qd 2. Zofran prn 3. Tigan prn 4. Dulcolax 10 mg TN qd prn 5. MRI abdomen 12 months to evaluate pancreatic lesions 6. Follow up with Kajal Giordano APRN 7. Follow up in 6 months Patient understands and is agreeable to the above plan. Written instructions provided. Bethanie Gorman APRN Section of Gastroenterology [place] [address] documented in this encounter Plan of Treatment Upcoming Encounters Date Type Specialty Care Team Description 06/19/2022 Office Visit Rheumatology Richi Blackmon MD [facility] DR RHEUMATOLOGY [place], [place] [address] (Wo rk) Scheduled Procedures Name Priority Associated Diagnoses Date/Time EGD, UPPER GI ENDOSCOPY Family hx of colon cance r COLONOSCOPY, DIAGNOSTIC Family hx of colon cance r documented as of this encounter Visit Diagnoses Diagnosis GI problem - Primary Other symptoms involving digestive syste m documented in this encounter Care Teams Fitter And Turner Relationship Specialty Start Date End Date Jazmine Baer MD PCP - General 11/07/10 [address] [place] [address] documented as of this encounter
--- OUTSIDE RECORDS SUMMARY | 2022-04-11 10:57 | XMS_ITS | Encounter Summary ---
:1960 Author Organization [place] [address] Care Team Providers Name Role Phone Jazmine Baer MD Primary Care Provider Encounter Details Date Type Department Care Team Description 05/21/2013 [facility] [place] [place] [facility] [place] [address] HEMATOLOGY/ONCOLOGY [phone] DEPT. [place], [place] [address] (Wo rk) Social History Tobacco Use Types Packs/Day Years Used Date Never Smoker Smokeless Tobacco: Never Used Alcohol Use Standard Drinks/Week Comments Yes 0 (1 standard drink = 0.6 oz pure alcoho l) Occasional Alcohol Habits Answer Date Recorded How often do you have a drink containing alcohol? Not asked How many drinks containing alcohol do you have on a typical Not asked day when you are drinking? How often do you have six or more drinks on one occasion? No t asked Comment: Occasional 02/05/2013 Sex Assigned at Date Recorded Not on file documented as of this encounter Plan of Treatment Upcoming Encounters Date Type Specialty Care Team Description 06/19/2022 Office Visit Rheumatology Richi Blackmon MD [facility] RHEUMATOLOGY [place], [place] [address] (Wo rk) Scheduled Orders Name Type Priority Associated Diagnoses Order S chedule ([facility] MSURG)BONE Procedures Routine One Time for 1 MARROW ASP PERFORMED Occurre nces starting W/BX THRU BX INCISION 2012 until 05/21/2013 ([facility] MSURG) UNILAT Procedures Routine One Time for 1 BONE MARROW BIOSPY Occurrenc es starting 05/21/2013 unti l 05/21/2013 Scheduled Procedures Name Priority Associated Diagnoses Date/Time EGD, UPPER GI ENDOSCOPY Family hx of colon cance r COLONOSCOPY, DIAGNOSTIC Family hx of colon cance r documented as of this encounter Visit Diagnoses Not on filedocumented in this encounter Care Teams Argon Tester Relationship Specialty Start Date End Date Jazmine Baer MD PCP - General 11/07/10 [address] [place] [address] documented as of this encounter
--- OUTSIDE RECORDS SUMMARY | 2022-04-11 10:57 | XMS_ITS | Encounter Summary ---
:1960 Author Organization [facility] [place] [address] Care Team Providers Name Role Phone Jazmine Baer MD Primary Care Provider Reason for Visit Reason Onset Date Comments Other 07/23/2011 Insurance update Encounter Details Date Type Department Care Team Description 07/23/2011 Telephone Neurology at [facility] Hilary David MD Other (Insurance [facility] upd [facility]) [place] [address] NEUROLOGY DEPT. [phone] [place] [id number] (Wo rk) Social History Tobacco Use Types Packs/Day Years Used Date Never Smoker Smokeless Tobacco: Never Used Alcohol Use Standard Drinks/Week Comments No 0 (1 standard drink = 0.6 oz pure alcoho l) < 1 drink per month Alcohol Habits Answer Date Recorded How often do you have a drink containing alcohol? Not asked How many drinks containing alcohol do you have on a Not aske d typical day when you are drinking? How often do you have six or more drinks on one Not asked occasion? Comment: < 1 drink per month 11/07/2010 Sex Assigned at Date Recorded Not on file documented as of this encounter Miscellaneous Notes Telephone Encounter - Hilary David MD - 07/25/2011 9:13 AM EST Called patient's insurance company and got approval until 10/20/11 for IVIG. I called [facility] that infuses it, patient has been set up for Saturday and Saturday infusions. They will double check to make sure this is covered. Telephone Encounter - Corrie Ha - 07/23/2011 2:16 PM EST Patient returned call from Dr. David to provide updated insurance information: [facility] Provider Phone#: documented in this encounter Plan of Treatment Upcoming Encounters Date Type Specialty Care Team Description 06/19/2022 Office Visit Rheumatology Richi Blackmon MD [facility] ER DR RHEUMATOLOGY [place], [place] [address] (Wo rk) Scheduled Procedures Name Priority Associated Diagnoses Date/Time EGD, UPPER GI ENDOSCOPY Family hx of colon cance r COLONOSCOPY, DIAGNOSTIC Family hx of colon cance r documented as of this encounter Visit Diagnoses Not on filedocumented in this encounter Care Teams Weight Checker Relationship Specialty Start Date End Date Jazmine Baer MD PCP - General 11/07/10 [address] [place] [address] documented as of this encounter
--- OUTSIDE RECORDS SUMMARY | 2022-04-11 10:57 | XMS_ITS | Encounter Summary ---
:1960 Author Organization [facility] [place] [address] Care Team Providers Name Role Phone Jazmine Baer MD Primary Care Provider Encounter Details Date Type Department Care Team Description 04/15/2013 Telephone [place]ology [place] [facility] Bethanie Gormna APRN [facility] [place] [address] [place] [address] [phone] (Wo rk) Social History Tobacco Use Types [...] Telephone Encounter - Bethanie Gorman APRN - 04/15/2013 4:36 PM EST Attempted to contact Mr. Acevedo re: GES results but no answer and left message with call back number. documented in this encounter Plan of Treatment Upcoming Encounters Date Type Specialty Care Team Description 06/19/2022 Office Visit Rheumatology Richi Blackmon MD [facility] DR RHEUMATOLOGY [place], [place] [address] (Wo rk) Scheduled Procedures Name Priority Associated Diagnoses Date/Time EGD, UPPER GI ENDOSCOPY Family hx of colon cance r COLONOSCOPY, DIAGNOSTIC Family hx of colon cance r documented as of this encounter Visit Diagnoses Not on filedocumented in this encounter Care Teams Biofuels Production Associate Relationship Specialty Start Date End Date Jazmine Baer MD PCP - General 11/07/10 [address] [place] [address] documented as of this encounter
--- OUTSIDE RECORDS SUMMARY | 2022-04-11 10:57 | XMS_ITS | Encounter Summary ---
:1960 Author Organization [facility] Address [facility] [place] [address] Care Team Providers Name Role Phone Jazmine Baer MD Primary Care Provider Reason for Visit Reason Onset Date Comments Other 07/25/2011 Infusion is authoriz ed for 2 days Encounter Details Date Type Department Care Team Description 07/25/2011 Telephone Neurology at [facility] Hilary David MD Other (Infusion is [facility] aut horized for [address] days) [place] [address] NEUROLOGY DEPT. [phone] [place] [id number] (Wo rk) Social History Tobacco Use Types [...] this encounter Miscellaneous Notes Telephone Encounter - Cherrie Sorenson Melanie - 07/25/2011 9:50 AM EST Vanessa from [employer] has called to report that they do have authorization for the two day infusion and the patient is scheduled for and Saturday. Please call if you have any further questions or concerns documented in this encounter Plan of Treatment Upcoming Encounters Date Type Specialty Care Team Description 06/19/2022 Office Visit Rheumatology Richi Blackmon MD [facility] ER DR RHEUMATOLOGY [place], [place] [address] (Wo rk) Scheduled Procedures Name Priority Associated Diagnoses Date/Time EGD, UPPER GI ENDOSCOPY Family hx of colon cance r COLONOSCOPY, DIAGNOSTIC Family hx of colon cance r documented as of this encounter Visit Diagnoses Not on filedocumented in this encounter Care Teams Corporate Intern Relationship Specialty Start Date End Date Jazmine Baer MD PCP - General 11/07/10 [address] [place] [address] documented as of this encounter
--- OUTSIDE RECORDS SUMMARY | 2022-04-11 10:57 | XMS_ITS | Encounter Summary ---
:1960 Author Organization [facility] [place] [address] Care Team Providers Name Role Phone Jazmine Baer MD Primary Care Provider Encounter Details Date Type Department Care Team Description 05/14/2013 Hospital Encounter Hematology and CLINIC, CONV Oncology at [facility] Alem Evangelista MD [facility] HEMATOLOGY/[place] [address] [place] [address] Social History Tobacco Use Types Packs/Day [...] Sig Dispensed Refills Start Date End Date omeprazole (PRILOSEC) 40 Take 1 capsule by 60 capsule 3 /09/201206/18/2013 mg capsule mouth 2 times daily. ondansetron (ZOFRAN) 4 Take 4 mg by mouth 0 06/18/2013 mg tablet as needed. trimethobenzamide Take 1 capsule by 120 capsule 12 04/02/2013 06/18/2013 (TIGAN) 300 mg mouth 4 times daily. capsuleIndications: Nausea and vomiting INSULIN LISPRO (HUMALOG Inject 12 Units 0 07/13/2014 SUBQ) subcutaneously 3 times daily (with meals). aspirin 81 mg tablet Take 81 mg by mouth 0 07/07/2013 daily. insulin glargine Inject 75 Units 0 08/2014 (LANTUS) 100 unit/mL subcutaneously vial injection nightly. lisinopril-hydrochloroth Take 2 tablets by 0 05/02/2021 iazide mouth daily. (PRINZIDE;ZESTORETIC) 20-12.5 mg per tablet metFORMIN (GLUCOPHAGE) Take 500 mg by mouth 0 01/27/2014 500 mg tablet 2 times daily (with meals). atenolol (TENORMIN) 100 Take 50 mg by mouth 0 10/13/2015 mg tablet daily. immune Inject into the 0 4 globulin,hum,,capr,IGG, vein. Receiving IVIG (GAMUNEX) 10 % Inj treatments [...] MD [facility] DR RHEUMATOLOGY [place], [place] [address] (Wo rk) Scheduled Procedures Name Priority Associated Diagnoses Date/Time EGD, UPPER GI ENDOSCOPY Family hx of colon cance r COLONOSCOPY, DIAGNOSTIC Family hx of colon cance r documented as of this encounter Visit Diagnoses Not on filedocumented in this encounter Care Teams Ivf Embryologist Relationship Specialty Start Date End Date Jazmine Baer MD PCP - General 11/07/10 [address] [place] [address] documented as of this encounter
--- OUTSIDE RECORDS SUMMARY | 2022-04-11 10:57 | XMS_ITS | Encounter Summary ---
:1960 Author Organization [facility] [place] [address] Care Team Providers Name Role Phone Samantha Baer MD Primary Care Provider Encounter Details Date Type Department Care Team Description 02/05/2013 Office Visit Neurology at [facility] Abe Newsome (Primary Dx) [facility] [place] [address] NEUROLOGY DEPT. [phone] [place], [place] [address] (Wo rk) Social History Tobacco [...] Sign Reading Time Taken Comments Blood Pressure 116/64 02/05/2013 12:54 PM EDT Pulse 66 02/05/2013 12:54 PM EDT Temperature - - Respiratory Rate - - Oxygen Saturation - - Inhaled Oxygen Concentration - - Weight 111.1 kg (245 lb) 02/05/2013 12:54 PM EDT Height 174 cm (5' 8.5) 02/05/2013 12:54 PM EDT Body Mass Index 36.71 02/05/2013 12:54 PM EDT documented in this encounter Progress Notes Ruperto Mcclellan MD - 02/05/2013 1:14 PM EDT Neurology Clinic Note Patient Name: Bucky Acevedo : 1960 PCP: SAMATNHA BAER MD Clinic Attending: Dr. Newsome Patient ID: Bucky Acevedo is a 52 y.o. man with h/o immune mediated necrotizing myopathy. He is usually followed by Dr. Bucky Marie at [facility]. Patient's symptoms began in late 2008 with pain in his back and RLE and progressive weakness with walking in setting of being on statin meds. Mr. Acevedo first came to the attention of the neurology department in Jun 2009 with progressive muscle weakness and was found to have myopathy with elevated CKin the 5000s. He had been on Lipitor for about nine years, he stated he was on 100 mg. A muscle biopsy was performed which revealed myopathy but no clear etiology was determined. He was then followed by Dr. Marie in [facility] and his pathology slides where review by a Dr. Ricardo on [place]. He felt that the slides were consistent with necrotizing myopathy. A paraneoplastic work-up was recommended, whichhe did have at the time of presentation to [facility] and it was negative. He was on prednisone for a time. He continues on MTX and monthly IVIg infusions. IVIg seems to be the only effective treatment for him, with CK levels decreasing. Workup: TPMT enzyme activity 08/2009 normal Myositis Antibody Panel Plus 06/2009 negative (anti-Kiesha, PM/SCL, CO-2, PL-7, PL- 12, EJ, OJ KU, U2 SN SORTING GRAPPLE OPERATOR, SRP) mitochondrial mutations: Absence of all screened point mtDNA mutations and deletions associated with neuromuscular disorders. Interval History: Patient was last seen by Dr. David in Jun 2012. CK 1 month prior to that was 1200. IVIG was restartedin Jul 2012. Currently on 2 day IVIG per month. Patient currently on MTX 15mg. Since restarting backon IVIG, patient's weakness has stabilized per Dr. Marie. Patient's weakness waxes and wanes. Amna good day, patient is able to get up and able to perform chores and able to lift up to 10- 20 lbs. On a bad day, it takes longer to get out of bed and lacks energy all day long, and gait is less stableand he rocks to sit up. Patient has fallen once since the last visit (in December) without any seriousinjury. Patient continues to have constant lower back pain and sharp R knee pain. Denies cramps. He notices fatigue in the arms when carrying things. Able to climb up a few steps of stairs. Patient hasnot had blood work done for about 5 months. He was expecting to have lab work done yesterday after seeing Dr. Marie as usual but was not told to do so. Patient reports that Dr. Marie had recommended continuation of IVIG and MTX at yesterday's appointment. Patient uses his cane towards the end of the day if he really needs it. Patient has been vomiting frequently and has a referral to see GI. Patient also has been having a few pustular erythema and requesting to see dermatology. Per PCP, patient was supposed to have ferritin, iron, b12, folate checked but he has not done so as he hasn't gone to the lab lately, and requests these checked if he is getting blood work done today. Smoking: denies EtOH: denies Does not work Past Medical History Diagnosis Date ??? Diabetes ??? Hypertension ??? Hyperlipidemia ??? Gout ??? Obesity ??? Kidney stone ??? 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 Shingles Meds: Current Outpatient Prescriptions on File Prior to Visit Medication Status Sig Dispense Refill ??? INSULIN LISPRO (HUMALOG SUBQ) Active Inject 18 Units subcutaneously 3 times daily (with meals). ??? aspirin 81 mg tablet Active Take 81 mg by mouth daily. ??? insulin glargine (LANTUS) 100 unit/mL vial injection Active Inject 55 Units subcutaneously nightly. ??? lisinopril-hydrochlorothiazide (PRINZIDE;ZESTORETIC) 20-12.5 mg per tablet Active Take 2 tabletsby mouth daily. ??? metFORMIN (GLUCOPHAGE) 500 mg tablet Active Take 500 mg by mouth 2 times daily (with meals). ??? atenolol (TENORMIN) 100 mg tablet Active Take 50 mg by mouth daily. ??? immune globulin,hum,,capr,IGG, (GAMUNEX) 10 % Inj infusion Active Inject into the vein. Receiving IVIG treatments for 2 consecutive days at the start of each month. ??? folic acid (FOLVITE) 1 mg tablet Active Take 1 mg by mouth daily. ??? methotrexate 2.5 mg tablet Active Take 15 mg by mouth once a week. ??? traMADol (ULTRAM) 50 mg tablet Active Take 100 mg by mouth 2 times daily. Family History Problem Relation Age of Onset ??? Colorectal Cancer Mother ??? Diabetes Mother ??? Myocardial Infarction Father first CO at 36 ??? Coronary Artery Disease Father ??? Diabetes Sister ??? Stomach Cancer uncle Allergy: Allergies Allergen Reactions ??? Vidirss-Aqa-Xuc Reductase Inhibitors Myopathy Review of systems: Constitutional: No fevers or chills Eyes: No vision changes, no diplopia, no blurry vision ENT: No rhinorrhea or pharyngitis, no meningismus CV: No chest pain or palpitations Resp: No cough, no shortness of breath GI: (+) frequent nausea and occasional vomiting, zofran helps, cannot tell if it is related to any medications : No dysuria, no incontinence Heme: No bleeding or bruising Endo: diabetes not in control Neuro: See HPI Psych: No depression, normal sleep [x] Review of systems otherwise negative Physical Exam: Vitals: Temp: -- Heart Rate: [66] Resp: -- BP: (116)/(64) SpO2: -- Gen: NAD Neck: Supple, no meningismus CV: + S1, S2, RRR, no murmur Resp: CTA B/L Abd: +normoactive bowel sounds, soft, nontender, nondistended Ext: No edema. No bony deformity Skin: pustular erythematous folliculitis appearing lesions on L arm and chest Neuro Exam: MS: AAOx4, clear language, no [...] L Elbow flexion 5/5 R, 5/5 L Wrist extension 5/5 R, 5/5 L Thumb abduction (APB) 5/5 R, 5/5 L Finger abduction LE: 3/5 R, 4/5 L Hip flexion 5/5 R, 5/5 L Knee extension 5/5 R, 5/5 L Knee flexion (4/5 L in Jun 2012) 5/5 R, 5/5 L Foot dorsiflexion 5/5 R, 5/5 L Foot plantar flexion Sensation: Intact to light touch throughout Reflexes: DTRs 1+ throughout Coordination: LAURA & finger tapping smooth and symmetric No tremor Gait: mild waddling gait Labs: No results found for this or any previous visit (from the past 24 hour(s)). Diagnostic Tests and Imaging: No new imaging studies Assessment / Plan: Bucky Acevedo is a 52 y.o. man with necrotizing myopathy of unclear etiology previously treated with steroids, currently on monthly IVIG and MTX. Paraneoplastic panel and mitochondrial mutation workup have been negative. Comparing patient's documented exam from last visit and today's encounter, pauly bernardo's weakness has improved a little. Patient and his are inquiring about need for MRI for hisback pain, though patient had problem getting MRI in the past 2/2 claustrophobia. Patient's exam is negative for signs of severe radiculopathy such as sensory loss, focal weakness, hyperreflexia or shooting pain, so will forgo MRI for now, patient understands this. -continue IVIG 2 days per month -continue methotrexate 15mg qweekly -monitor CK -check CBC, CMP, CK, ferritin, iron, b12, folate today -continue home PT -continue zofran prn for nausea -continue folate 1mg daily -agree with GI and dermatology evaluation (will defer to PCP for referral) -RTC in [address] Jerod Mcclellan MD Neurology Resident, PGY3 Pager [phone] Neurology (Staff) Addendum I saw and evaluated the patient. I have reviewed the resident's history, physical examination findings, assessment and plan during the visit and I agree with the details as written, unless otherwise specified as below. Dimas Newsome MD documented in this encounter Miscellaneous Notes Addendum Note - Florence Luis - 02/05/2013 2:34 PM EDT Addended by: FLORENCE LUIS on: 02/05/2013 02:34 PM Modules accepted: Orders documented in this encounter Plan of Treatment Upcoming Encounters Date Type Specialty Care Team Description 06/19/2022 Office Visit Rheumatology Richi Blackmon MD [facility] [address] RHEUMATOLOGY [place], [place] [address] (Wo rk) Scheduled Procedures Name Priority Associated Diagnoses Date/Time EGD, UPPER GI ENDOSCOPY Family hx of colon cance r COLONOSCOPY, DIAGNOSTIC Family hx of colon cance r documented as of this encounter Procedures Procedure Name Priority Date/Time Associated Diagnosis Comme nts DIFFERENTIAL, Routine 02/05/2013 2:45 PM Results for this AUTOMATED EDT procedure are i n the results section. IRON AND TIBC Routine 02/05/2013 2:45 PM Myopathy Results for this EDT procedure are i n the results section. CBC (WITH DIFF) Routine 02/05/2013 2:45 PM Myopathy Result s for this EDT procedure are i n the results section. FOLATE, SERUM Routine 02/05/2013 2:45 PM Myopathy Results for this EDT procedure are i n the results section. FERRITIN Routine 02/05/2013 2:45 PM Myopathy Results f or this EDT procedure are i n the results section. VITAMIN B12 Routine 02/05/2013 2:45 PM Myopathy Results f or this EDT procedure are i n the results section. CK Routine 02/05/2013 2:45 PM Myopathy Results f or this EDT procedure are i n the results section. HEPATIC FUNCTION Routine 02/05/2013 2:45 PM Myopathy Resul ts for this PANEL EDT procedure are i n the results section. BASIC METABOLIC Routine 02/05/2013 2:45 PM Myopathy Result s for this PANEL (NON-FASTING) EDT procedur e are in the results section. documented in this encounter Results (ABNORMAL) Differential, Automated (02/05/2013 2:45 PM EDT) [facility] Method Time Signature Neutrophils % 38.8 34.0 - CERNER 71.0 % MILLENNIUM Neutr Abs (ANC) 1.95 1.50 - CERNER 6.30 MILLENNIUM x10(3)/mc L Lymphocytes % 30.5 19.0 - CERNER 53.0 % MILLENNIUM Lymphocytes Abs 1.5 1.0 - 3.6 CERNER x10(3)/mc MILLENNIUM L Monocytes % 17.3 (H) 4.0 - CERNER 13.0 % MILLENNIUM Monocyte Abs 0.9 0.2 - 1.0 CERNER x10(3)/mc MILLENNIUM L Eosinophils % 12.2 (H) 0.0 - 7.0 CERNER % MILLENNIUM Eosinophils Abs 0.6 (H) 0.0 - 0.5 CERNER x10(3)/mc MILLENNIUM L Basophils % 1.0 0.0 - 2.0 CERNER % MILLENNIUM Basophils Abs 0.0 0.0 - 0.2 CERNER x10(3)/mc MILLENNIUM L Immature Gran % 0.20 0.00 - CERNER 0.66 % MILLENNIUM Comment: [...] Location / / Volume Laterality Blood specimen 02/05/2013 2:45 PM 013 2:53 (specimen) EDT PM EDT Abe Newsome MD HEMATOLOGY ORDERABLES Performing Organization Address City/State/[place] [address] CERNER MILLENNIUM Vitamin B12 (02/05/2013 2:45 PM EDT) athologist Signature Vitamin B-12 842 207 - 974 CERNER pg/mL MILLENNIUM Specimen Anatomical Collection Method Collection Time Receive d Time (Source) Location / / Volume Laterality Blood specimen 02/05/2013 2:45 PM 013 2:53 (specimen) EDT PM EDT Resulting Agency Comment Spec In Lab Abe Newsome MD CHEMISTRY ORDERABLES Performing Organization Address City/State/ZIP Code Phon e Number [address] CERNER MILLENNIUM Folate, serum (02/05/2013 2:45 PM EDT) athologist Signature Folate Lvl 7.4 4.6 - 34.8 CERNER ng/mL MILLENNIUM Specimen Anatomical Collection Method Collection Time Receive d Time (Source) Location / / Volume Laterality Blood specimen 02/05/2013 2:45 PM 013 2:53 (specimen) EDT PM EDT Resulting Agency Comment Spec In Lab Abe Newsome MD CHEMISTRY ORDERABLES Performing Organization Address City/[facility]/ZIP Code Phon e Number [address] CERNER MILLENNIUM Iron and TIBC (02/05/2013 2:45 PM EDT) athologist Signature Iron 76 45 - 160 CERNER mcg/dL MILLENNIUM TIBC 263 250 - 450 CERNER mcg/dL MILLENNIUM Iron Saturation 29 20 - 50 % CERNER MILLENNIUM Specimen Anatomical Collection Method Collection Time Receive d Time (Source) Location / / Volume Laterality Blood specimen 02/05/2013 2:45 PM 013 2:53 (specimen) EDT PM EDT Resulting Agency Comment Spec In Lab Abe Newsome MD CHEMISTRY ORDERABLES Performing Organization Address City/[facility]/ZIP Code Phon e Number [address] CERNER MILLENNIUM (ABNORMAL) Ferritin (02/05/2013 2:45 PM EDT) P athologist Signature Ferritin 894 (H) 30 - 400 CERNER ng/mL MILLENNIUM Comment: Pediatric reference ranges not verified at [facility], interpret with caution. Reference ranges for females greater kayleigh n 50 years of age approach values for men, i.e., 30-400 ng/mL. Specimen Anatomical Collection Method Collection Time Receive d Time (Source) Location / / Volume Laterality Blood specimen 02/05/2013 2:45 PM 013 2:53 (specimen) EDT PM EDT Resulting Agency Comment Spec In Lab Abe Newsome MD CHEMISTRY ORDERABLES Performing Organization Address City/[facility] Code Phon e Number [address] CERNER MILLENNIUM (ABNORMAL) Hepatic Function Panel (02/05/2013 2:45 PM EDT) Analysis Performed At Patho logist Time Signature Total Protein 7.9 6.4 - 8.3 CERNER gm/dL MILLENNIUM Albumin 2.8 (L) 3.2 - 5.2 CERNER gm/dL MILLENNIUM AST 38 0 - 39 CERNER unit/L MILLENNIUM ALT 27 0 - 55 CERNER unit/L MILLENNIUM Alk Phos 121 (H) 40 - 120 CERNER unit/L MILLENNIUM Total 1.0 0.2 - 1.3 CERNER Bilirubin mg/dL MILLENNIUM Bili, Direct Not Perf 0.0 - 0.3 CERNER mg/dL MILLENNIUM Comment: Specimen lipemic or turbid in appearance , unsuitable for analysis. [facility] Specimen Anatomical Collection Method Collection Time Receive d Time (Source) Location / / Volume Laterality Blood specimen 02/05/2013 2:45 PM 013 2:53 (specimen) EDT PM EDT Resulting Agency Comment Spec In Lab Abe Newsome MD CHEMISTRY ORDERABLES Performing Organization Address City/[facility] [place] [address] CERNER MILLENNIUM (ABNORMAL) Basic Metabolic Panel (non-fasting) (02/05/2013 2:45 PM EDT) athologist Signature Glucose Lvl 178 60 - 199 CERNER mg/dL MILLENNIUM Comment: Diabetes: >=200 mg/dL plus symp toms BUN 24 (H) 10 - 20 mg/dL CERNER MILLENNIU M Creatinine 1.14 0.80 - 1.50 mg/dL CERNER MILL ENNIUM Comment: Please note that the pediatric reference intervals supplied above were not validated at [facility]. Results from pediatri c patients should be interpreted in conjunction to the patient's age, height and muscle mass. Sodium 132 (L) 135 - 145 mmol/L CERNER ELISE [...] estions. Chloride 100 98 - 107 mmol/L CERNER MILLENN IUM CO2 22 22 - 31 mmol/L CERNER MILLENNI UM Anion Gap 10 5 - 15 mmol/L CERNER MILLENNIU M Calcium 8.7 8.5 - 10.5 mg/dL CERNER ELISE NIUM [...] Location / / Volume Laterality Blood specimen 02/05/2013 2:45 PM 013 2:53 (specimen) EDT PM EDT Resulting Agency Comment Spec In Lab Abe Newsome MD CHEMISTRY ORDERABLES Performing Organization Address City/State/ZIP [place] [address] CERNER MILLENNIUM (ABNORMAL) CBC (with Diff) (02/05/2013 2:45 PM EDT) athologist Signature WBC 5.0 4.0 - 10.0 CERNER x10(3)/mcL MILLENNIUM RBC 3.11 (L) 4.63 - CERNER 6.08 MILLENNIUM x10(6)/mcL Hemoglobin 10.4 (L) 13.7 - CERNER 17.5 gm/dL MILLENNIUM Hematocrit 32.4 (L) 40.0 - CERNER 51.0 % MILLENNIUM MCV 104.2 (H) 79.0 - CERNER 92.0 fL MILLENNIUM MCH 33.4 (H) 25.6 - CERNER 32.2 pg MILLENNIUM MCHC 32.1 32.0 - CERNER 36.5 gm/dL MILLENNIUM Platelets 64 (L) 145 - 370 CERNER x10(3)/mcL MILLENNIUM RDWSD 67.8 (H) 35.0 - CERNER 46.0 fL MILLENNIUM RDWCV 18.3 (H) 10.9 - CERNER 14.4 % MILLENNIUM MPV 11.2 9.0 - 12.0 CERNER fL MILLENNIUM Specimen Anatomical Collection Method Collection Time Receive d Time (Source) Location / / Volume Laterality Blood specimen 02/05/2013 2:45 PM 013 2:53 (specimen) EDT PM EDT Resulting Agency Comment Spec In Lab Abe Newsome MD HEMATOLOGY ORDERABLES Performing Organization Address City/State/ZIP [place] [address] CERNER MILLENNIUM (ABNORMAL) CK (02/05/2013 2:45 PM EDT) athologist Signature CK, Total 286 (H) 0 - 200 CERNER unit/L MILLENNIUM Specimen Anatomical Collection Method Collection Time Receive d Time (Source) Location / / Volume Laterality Blood specimen 02/05/2013 2:45 PM 013 2:53 (specimen) EDT PM EDT Resulting Agency Comment Spec In Lab Abe Newsome MD CHEMISTRY ORDERABLES Performing Organization Address City/State/ZIP Code Phon e Number [place] [phone] [facility] documented in this encounter Visit Diagnoses Diagnosis Myopathy - Primary Myopathy, unspecified documented in this encounter Care Teams Critical Care Paramedic Relationship Specialty Start Date End Date Samantha Baer MD PCP - General 11/07/10 [address] [place] [address] documented as of this encounter
--- OUTSIDE RECORDS SUMMARY | 2022-04-11 10:57 | XMS_ITS | Encounter Summary ---
:1960 Author Organization [facility] [place] [address] Care Team Providers Name Role Phone Jazmine Baer MD Primary Care Provider Reason for Visit Reason Comments Advice Only Encounter Details Date Type Department Care Team Description 05/14/2013 Office Visit Hematology and Alem Fuentes Nausea and vomiting; Oncology at [facility] MD Nikia Anemia; [facility] [address] Rodriguez [place] HEMATOLOGY/ONCOLOGY [address] DEPT. [phone] [place], [place] [address] (Wo rk) Social History Tobacco [...] Sign Reading Time Taken Comments Blood Pressure 128/67 05/14/2013 8:53 AM EST Pulse 63 05/14/2013 8:53 AM EST Temperature 36.5 ??C (97.7 ??F) 05/14/2013 8:53 AM EST Respiratory Rate 18 05/14/2013 8:53 AM EST Oxygen Saturation 99% 05/14/2013 8:53 AM EST Inhaled Oxygen Concentration - - Weight 117.6 kg (259 lb 3.2 oz) 05/14/2013 8:53 AM EST Height 172.6 cm (5' 7.95) 05/14/2013 8:53 AM EST Body Mass Index 39.47 05/14/2013 8:53 AM EST documented in this encounter Progress Notes Alem Fuentes MD - 05/18/2013 5:18 PM EST ++++++++++++++++++++++++++++++++++++++++++++++++++++++++++++++++ Attending Addendum: I personally saw, examined and interviewed the patient. I agree with the history, physical, assessment and plan in the note by Dr Fermin of the same date. I have reviewed all pertinent laboratory and radiographic findings. We discussed the patient in detail and formulated the assessment and plan together. 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 He has been off MTX and taking folate supplementation and that is not currently thought to be the cause of his cytopenias. As listed in Dr Fermin note, the differential diagnosis is broad. We will draw screening labs today but he understands that a BMBX might be necessary and we consented him for that as well; should it be necessary. We will also obtaoin outside images that have been done at [facility] and [facility] as well as EGD/COLO reports. Jigna Fermin MD - 05/14/2013 9:09 AM EST 53 year old male with PMH myositis (as described) below presents for discussion about investigation of his recently discovered anemia and thrombocytopenia. He tells me that these were discovered on labs drawn by his PCP when he presented with the complaint of fatigue and 3x/week epistaxis for the pastseveral months. He had been taking po MTX weekly for his myositis but this was discontinued in 12/2012 and his cytopenias have persisted despite this. Macrocytosis has improved since January but still slightly macrocytic. 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 He had been taking MTX 20-->15mg weekly for ~2 years but was instructed to stop this in 12/2012 #DM-2 #DVT of the upper extremity in 2011 - completed several months of warfarin for this - not on anticoagulation currently #Arthritis #Hernia Current Outpatient Prescriptions on File Prior to Visit Medication Sig Dispense Refill ??? omeprazole (PRILOSEC) 40 mg capsule Take 1 capsule by mouth 2 times daily. 60 capsule 3 ??? ondansetron (ZOFRAN) 4 mg tablet Take 4 mg by mouth as needed. ??? trimethobenzamide (TIGAN) 300 mg capsule Take 1 capsule by mouth 4 times daily. 120 capsule 12 ??? INSULIN LISPRO (HUMALOG SUBQ) Inject 18 Units subcutaneously 3 times daily (with meals). ??? aspirin 81 mg tablet Take 81 mg by mouth daily. ??? insulin glargine (LANTUS) 100 unit/mL vial injection Inject 70 Units subcutaneously nightly. ??? lisinopril-hydrochlorothiazide (PRINZIDE;ZESTORETIC) 20-12.5 mg per tablet Take 2 tablets by mouth daily. ??? metFORMIN (GLUCOPHAGE) 500 mg tablet Take 500 mg by mouth 2 times daily (with meals). ??? atenolol (TENORMIN) 100 mg tablet Take 50 mg by mouth daily. ??? folic acid (FOLVITE) 1 mg tablet Take 1 mg by mouth daily. ??? traMADol (ULTRAM) 50 mg tablet Take 200 mg by mouth nightly. ??? immune globulin,hum,,capr,IGG, (GAMUNEX) 10 % Inj infusion Inject into the vein. Receiving IVIG treatments for 2 consecutive days at the start of each month. 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 No alcohol. Never smoker. BP 128/67 Pulse 63 Temp 36.5 ??C (97.7 ??F) (Oral) Resp 18 Ht 172.6 cm (5' 7.95) Wt 117.572 kg (259 lb 3.2 oz) BMI 39.47 kg/m2 SpO2 99% General: alert, conversant, NAD HEENT: PERRLA, EOMI, mmm, no oropharyngeal lesions, erythema or exudates, symmetric palate raise Neck: no palpable lymphadenopathy (including axillary lymphadenopathy) CVS: regular S1S2 without MRG Chest: CTAB, no crackles or wheezes Abdomen: soft, NT, protuberant, BS+, Spleen not palpable Extremities: no edema, normal bulk and tone Neuro: ambulatory, CN 2-12 grossly intact, moves all 4 extremities Skin: no visible rashes or lesions Recent Results (from the past 24 hour(s)) CBC (WITH DIFF) Component Value Range WBC 4.0 4.0 - 10.0 x10(3)/mcL RBC 3.47 (*) 4.63 - 6.08 x10(6)/mcL Hemoglobin 10.9 (*) 13.7 - 17.5 gm/dL Hematocrit 33.8 (*) 40.0 - 51.0 % MCV 97.4 (*) 79.0 - 92.0 fL MCH 31.4 25.6 - 32.2 pg MCHC 32.2 32.0 - 36.5 gm/dL Platelets 88 (*) 145 - 370 x10(3)/mcL RDWSD 47.8 (*) 35.0 - 46.0 fL RDWCV 13.6 10.9 - 14.4 % MPV 11.6 9.0 - 12.0 fL COMPREHENSIVE METABOLIC PANEL (NON-FASTING) Component Value Range Glucose Lvl 421 (*) 60 - 199 mg/dL BUN 17 10 - 20 mg/dL Creatinine 1.40 0.80 - 1.50 mg/dL Sodium 130 (*) 135 - 145 mmol/L Potassium 4.5 3.5 - 5.0 mmol/L Chloride 98 98 - 107 mmol/L CO2 21 (*) 22 - 31 mmol/L Anion Gap 11 5 - 15 mmol/L Calcium 8.5 8.5 - 10.5 mg/dL Total Protein 7.8 6.4 - 8.3 gm/dL Albumin 2.9 (*) 3.2 - 5.2 gm/dL AST 30 0 - 39 unit/L ALT 23 0 - 55 unit/L Alk Phos 126 (*) 40 - 120 unit/L Total Bilirubin 0.5 0.2 - 1.3 mg/dL Bili, Direct 0.2 0.0 - 0.3 mg/dL Estimated GFR 53 (*) >=60 DIFFERENTIAL, AUTOMATED Component Value Range Neutrophils % 59.2 34.0 - 71.0 % Neutr Abs (ANC) 2.34 1.50 - 6.30 x10(3)/mcL Lymphocytes % 27.8 19.0 - 53.0 % Lymphocytes Abs 1.1 1.0 - 3.6 x10(3)/mcL Monocytes % 9.1 4.0 - 13.0 % Monocyte Abs 0.4 0.2 - 1.0 x10(3)/mcL Eosinophils % 2.8 0.0 - 7.0 % Eosinophils Abs 0.1 0.0 - 0.5 x10(3)/mcL Basophils % 0.8 0.0 - 2.0 % Basophils Abs 0.0 0.0 - 0.2 x10(3)/mcL Immature Gran % 0.30 0.00 - 0.66 % Tamara Gran Abs 0.01 0.00 - 0.05 x10(3)/mcL A/P: 53 year old male with PMH myositis (as described) below presents for discussion about investigation of his recently discovered anemia and thrombocytopenia. He tells me that these were discovered on labs drawn by his PCP when he presented with the complaint of fatigue and 3x/week epistaxis for the pastseveral months. He had been taking po MTX weekly for his myositis but this was discontinued in 12/2012 and his cytopenias have persisted despite this. Macrocytosis has improved since January but still slightly macrocytic. I do not see any abdominal imaging in his record to assess his liver or spleen size - he has abnormal LFTs in 2009 and significant central obesity and therefore could have liver dysfunction that he is not aware of. This in turn could cause splenomegaly and renal dysfunction (his creatinine is elevatedtoday for the first time in any of the labs I see). His DM and elevated ferritin make me wonder about hemochromatosis, but his iron sat is normal so perhaps not. We will check hemolysis labs (although this seems unlikely since he is getting IVIG currently), a GGT to assess for the etiology of the elevated alk phos and a DIC screen to assess his synthetic function. The macrocytosis makes me think of MDS - a peripheral smear would be helpful to look for leukoerythroblastosis and/or abnormal morphology. Finally I discussed that given that he has 2 lines down over several months, we should assess the bone marrow directly with a bone marrow biopsy, and we will schedule this now and should our imaging or other labs give us the answer in the mean time we can cancel it. Also, we will hold off on hemochromatosis genetic studies for the moment but can consider them depending on what the results of the above tests shows. Summary of plan: -peripheral smear -repeat iron studies including folate -DIC screen -GGT -epo level -US of abdomen to assess liver and spleen -bone marrow biopsy -request results of EGD and colo from [facility] -request recent CT and US from [facility] (if these have adequate spleen and liver assessment we don't need to repeat these) documented in this encounter Plan of Treatment Upcoming Encounters Date Type Specialty Care Team Description 06/19/2022 Office Visit Rheumatology Richi Blackmon MD [facility] RHEUMATOLOGY [place], [place] [address] (Wo rk) Scheduled Procedures Name Priority Associated Diagnoses Date/Time EGD, UPPER GI ENDOSCOPY Family hx of colon cance r COLONOSCOPY, DIAGNOSTIC Family hx of colon cance r documented as of this encounter Procedures Procedure Name Priority Date/Time Associated Comments Diagnosis SMEAR REVIEW REPORT Routine 05/14/2013 11:19 Resu lts for this AM EST procedure are i n the results section. D-DIMER, QUANTITATIVE Routine 05/14/2013 10:53 Nausea and Re sults for this AM EST vomiting procedure are in Anemia the results section. ERYTHROPOIETIN LEVEL Routine 05/14/2013 10:53 Nausea and Res ults for this AM EST vomiting procedure are in Anemia the results section. APTT Routine 05/14/2013 10:53 Nausea and Results for this AM EST vomiting procedure are in Anemia the results section. THROMBIN TIME Routine 05/14/2013 10:53 Nausea and Results fo r this AM EST vomiting procedure are in Anemia the results section. PROTHROMBIN TIME Routine 05/14/2013 10:53 Nausea and Results for this AM EST vomiting procedure are in Anemia the results section. FIBRINOGEN Routine 05/14/2013 10:53 Nausea and Results for this AM EST vomiting procedure are in Anemia the results section. FOLATE, SERUM Routine 05/14/2013 10:53 Nausea and Results fo r this AM EST vomiting procedure are in Anemia the results section. FERRITIN Routine 05/14/2013 10:53 Nausea and Results for this AM EST vomiting procedure are in Anemia the results section. PERIPHERAL SMEAR REVIEW STAT 05/14/2013 7:36 AM Results for this EST procedure are i n the results section. DIFFERENTIAL, AUTOMATED STAT 05/14/2013 7:36 AM Results for this EST procedure are i n the results section. IRON AND TIBC STAT 05/14/2013 7:36 AM Results for this EST procedure are i n the results section. CBC (WITH DIFF) STAT 05/14/2013 7:36 AM Nausea and Result s for this EST vomiting procedure are in Anemia the results section. LACTATE DEHYDROGENASE STAT 05/14/2013 7:36 AM Results for this EST procedure are i n the results section. GAMMA GT STAT 05/14/2013 7:36 AM Results f or this EST procedure are i n the results section. COMPREHENSIVE METABOLIC STAT 05/14/2013 7:36 AM Nausea and Results for this PANEL (NON-FASTING) EST vomiting procedure are in Anemia the results section. documented in this encounter Results (ABNORMAL) US abdomen complete (05/27/2013 9:25 AM EST) Anatomical Region Laterality Modality Abdomen, Vascular Ultrasound Specimen (Source) Anatomical Collection Method Collection Time Re ceived Time Location / / Volume Laterality 05/27/2013 9:25 AM EST Narrative 05/27/2013 9:48 AM EST ?Abdominal ? (Signed Final 05/27/2013 09 :47 am) Patient Info ID: ? [id number] ? : ??[birth year] (53 yrs) Name: ? BUCKY ACEVEDO ?Visit Date: 05/27/2013 09:21 am Performed By Performed By: ?Nupur Braden RDMS Attending: ? Sue Kam MD Referred By: ? JIGNA Stevens Service(s) Provided [facility] - Abdominal Complete Survey - [phone] ? [id number] Indications assess for liver abnormality and/or spl enomegaly in pt with cytopenias Comparison Outside CT abdomen/pelvis from [facility] ??without IV, with oral contrast 03/18/13. ----- Liver ----- Right Lobe Length: ?? 19.8 ?? cm Echogenicity/Echotexture: ?? See below; smooth capsular ? contour ------- Lesions ------- # ?Date ?Location ?Description ? L ? AP ? TV (cm) 1 ?05/27/13 ?Subcapsula ?Sl ightly ? 1.7 ?1.6 ?1.4 ?r, anterior ? ? hyperechoic, ?at level of ? ? no internal ?gallbladder ? ? vascularity Comment: ?Difficult to penetrate th e liver, limiting sonographic ? evaluation. Gallbladder Cholelithiasis: ?Tiny gallstones Wall Thickness: ?Normal Focal Tenderness: ?Negative sonogra phic Morgan's sign Comment: ?Small amount of gravel/sl udge also noted. ??No ? pericholecystic fluid . Biliary Tract Intrahepatic Ducts: ?? Normal Extrahepatic Ducts: ?? Normal Common Duct Size: ? 5 ? mm -------- Pancreas -------- Head: ? Poorly visua lized Tail: ? Poorly visua lized Body: ? Poorly visua lized ------ Spleen ------ Size (cm) ?L: ??15.5 Comment: ?Normal appearance. Right Kidney Size (cm) ?L: ??10.8 Cortical Thickness: ?Normal Cortical Echogenicity: ?? Normal Hydronephrosis: ?No sonogr aphic evidence Left Kidney Size (cm) ?L: ??11.1 Cortical Thickness: ?Normal Cortical Echogenicity: ?? Normal Hydronephrosis: ?No sonogr aphic evidence ----- Aorta ----- Measurements (cm): Proximal ? AP: ?? 2.2 Comment: ?Normal in caliber where v isualized. --- IVC --- Normal in caliber where visualized. Fluid Collections No ascites seen. Impression Ultrasound - Abdomen Complete - Summary 1. ??UNEXPECTED FINDING: ??Limited sono graphic evaluation of the liver due to limited sonographic penetration. ??That said, there is an i ndeterminate slightly hyperechoic subcapsular 1.7 cm lesion as described above, possibly representing a hemangioma, though definitive characterization by u ltrasound is not possible. ??Suggest CT or MRI for furth er evaluation. 2. ??Mild hepatosplenomegaly. 3. ??Cholelithiasis and small amount of gravel/sludge. No evidence of acute cholecystitis. 4. ??Inadequate visualization of the pa ncreas. I ??viewed the images and agree with ady lyn above interpretation. Thank you for allowing us to participat e in the care of BUCKY ACEVEDO. Please do not hesitat e to call if you have any questions. ? Nikia Al Electronically Signed Final Report ?? 09:47 am Resulting Agency Comment Unexpected Finding Procedure Note Sue Kam MD - 05/27/2013Formatt ing of this note might be different from the original. Abdominal (Signed Final 05/27/2013 09:47 am) Patient Info ID: [id number] : [birth year] (53 yrs ) Name: BUCKY ACEVEDO Visit Date: 05/10 09:21 am Performed By Performed By: Nupur Braedn RDMS Attending: Sue Kam MD Referred By: JIGNA FERMIN MD Service(s) Provided [facility] - Abdominal Complete Survey - [phone] Indications assess for liver abnormality and/or spl enomegaly in pt with cytopenias Comparison Outside CT abdomen/pelvis from [facility] without IV, with oral contrast 03/18/13. ----- Liver ----- Right Lobe Length: 19.8 cm Echogenicity/Echotexture: See below; sm ooth capsular contour ------- Lesions ------- # Date Location Description L AP TV (cm ) 1 05/27/13 Subcapsula Slightly 1.7 1.6 1.4 r, anterior hyperechoic, at level of no internal gallbladder vascularity Comment: Difficult to penetrate the ananda er, limiting sonographic evaluation. Gallbladder Cholelithiasis: Tiny gallstones Wall Thickness: Normal Focal Tenderness: Negative sonographic Morgan's sign Comment: Small amount of gravel/sludge also noted. No pericholecystic fluid. Biliary Tract Intrahepatic Ducts: Normal Extrahepatic Ducts: Normal Common Duct Size: 5 mm -------- Pancreas -------- Head: Poorly visualized Tail: Poorly visualized Body: Poorly visualized ------ Spleen ------ Size (cm) L: 15.5 Comment: Normal appearance. Right Kidney Size (cm) L: 10.8 Cortical Thickness: Normal Cortical Echogenicity: Normal Hydronephrosis: No sonographic evidence Left Kidney Size (cm) L: 11.1 Cortical Thickness: Normal Cortical Echogenicity: Normal Hydronephrosis: No sonographic evidence ----- Aorta ----- Measurements (cm): Proximal AP: 2.2 Comment: Normal in caliber where visual ized. --- IVC --- Normal in caliber where visualized. Fluid Collections No ascites seen. Impression Ultrasound - Abdomen Complete - Summary 1. UNEXPECTED FINDING: Limited sonograp hic evaluation of the liver due to limited sonographic penetration. That said, there is an ind eterminate slightly hyperechoic subcapsular 1.7 cm lesion as described above, possibly representing a hemangioma, though definitive characterization by u ltrasound is not possible. Suggest CT or MRI for further evaluation. 2. Mild hepatosplenomegaly. 3. Cholelithiasis and small amount of g ravel/sludge. No evidence of acute cholecystitis. 4. Inadequate visualization of the panc reas. I viewed the images and agree with the above interpretation. Thank you for allowing us to participat e in the care of BUCKY ACEVEDO. Please do not hesitat e to call if you have any questions. Sue Kam MD Electronically Signed Final Report 05/27 09:47 am Alem Fuentes MD [facility] US GEN ORDERABLES Smear Review Report (05/14/2013 11:19 AM EST) Component Value Ref Test Analysis [facility] Method Time Signature Smear Review CERNER Report ? [facility] ? Provider: ?? ALEM FUENTES Pt. Name: ?? KIRIT BUCKY C ?M ? Acc #: ?[id number] ? Pt. ? Col Date: ?? 3 ? /Sex: ?1960,(53 years),Male ? Rec Date: ?? 05/14/2013 ? LOC: ?3K ? MORPHOLOGIC HEMATOLOGY: SMEAR REVIEW ? ---Clinical Information--- ? EXTERNAL Cytopenia ? pt with myositis on metotrexate w eekly until 12/2012, then discontinued, ? persistent thrombocytopenia and anemia ? ---Results--- ? WBC 3.95K/ul; RBC 3.4 7x106/ul; Hgb 10.9; Hct 33.8; MCV 97.4; RDW 13.6; PLT ? 88K/ul ? The WBC differential: Segs 59.2%, ??Lymphs 27.8%, Monos 9.1%, Eos 2.8%, ? Basos 0.8%, ??0 nRBC per 100 wbc. ? There is macrocytic anemia. The red blood cells show slight ? anisopoikilocytosis w ith ??microcytes. Singe nucleated RBC is seen. There is ? borderline leukopenia. The white blood cells show n ormal morphology. ? Platelets are decreas ed by number, but clumping is noted. Occasional large ? hypogranular forms are seen. ? ---Interpretation--- ? 1 - Macrocytic anemia ? 2 - Thrombocytopenia see comment ? 05/15/13 ? OVD ? 05/19/13 Verified by: ? Calos Cotto MD ? Hematopatholog ist ? (Electronic Si gnature) ? The attending pathologist whose signature appears o n this report has ? reviewed all diagnostic slides and has edited the talia ss and/or ? microscopic portion of the report in rendering the fi nal pathologic ? diagnosis. ? ---Comment--- ? The etiology of throm bocytopenia and anemia is not apparent from peripheral ? evaluation. There is no obvious dysplasia, abnormal cell population seen. ? There is no evidence of hemolysis. Macrocytic a nemia may be caused by ? nutritional deficiencies, liver disease, drug effect, dysplasia. ? Thrombocytopenia is seen. Differe ntial includes peripheral destruction, ? drug effects, dysplasia. Clinicopathologic correlatio n is required. ? Dictated by: ??Yadira Varner MD ? [facility] ? Provider: ?? ALEM FUENTES Pt. Name: ?? BUCKY ACEVEDO ?M ? Acc #: ?[id number] ? Pt. ? Col Date: ?? 3 ? /Sex: ?1960,(53 years),Male ? Rec Date: ?? 05/14/2013 ? LOC: ?3K ? Hematopathology Fellow ? MORPHOLOGIC HEMATOLOGY: SMEAR REVIEW ? As the attending phys ician, I attest that I examined the histologic slides, ? and confirm Dr. Yadira Varner's diagnosis. Specimen (Source) Anatomical Collection Method Collection Time Re ceived Time Location / / Volume Laterality 05/14/2013 11:19 AM EST Alem Fuentes MD PATHOLOGY/CYTOLOGY ORDERABLE S Performing Organization Address City/[facility]/[place] [address] CERNER MILLENNIUM Folate, serum (05/14/2013 10:53 AM EST) athologist Signature Folate Lvl >20.0 4.6 - 34.8 CERNER ng/mL MILLENNIUM Specimen Anatomical Collection Method Collection Time Receive d Time (Source) Location / / Volume Laterality Blood specimen 05/14/2013 10:53 3 (specimen) AM EST 11:03 AM EST Resulting Agency Comment Spec In Lab Alem Fuentes MD CHEMISTRY ORDERABLES Performing Organization Address City/[facility] Code Phon e Number [address] CERNER MILLENNIUM Ferritin (05/14/2013 10:53 AM EST) athologist Signature Ferritin 193 30 - 400 CERNER ng/mL MILLENNIUM Comment: Pediatric reference ranges not verified at [facility], interpret with caution. Reference ranges for females greater kayleigh n 50 years of age approach values for men, i.e., 30-400 ng/mL. Specimen Anatomical Collection Method Collection Time Receive d Time (Source) Location / / Volume Laterality Blood specimen 05/14/2013 10:53 3 (specimen) AM EST 11:03 AM EST Resulting Agency Comment Spec In Lab Alem Fuentes MD CHEMISTRY ORDERABLES Performing Organization Address City/[facility]/[place] [address] CERNER MILLENNIUM Erythropoietin Level (05/14/2013 10:53 AM EST) athologist Signature Erythropoietin 6 4 - 24 CERNER mIU/mL MILLENNIUM Specimen Anatomical Collection Method Collection Time Receive d Time (Source) Location / / Volume Laterality Blood specimen 05/14/2013 10:53 3 2:33 (specimen) AM EST PM EST Resulting Agency Comment Spec In Lab Alem Fuentes MD CHEMISTRY ORDERABLES Performing Organization Address City/[facility]/[place] [address] CERNER MILLENNIUM (ABNORMAL) D-Dimer, Quantitative (05/14/2013 10:53 AM EST) P athologist Signature D-Dimer, Quant 529 (H) 0 - 500 CERNER FEU ng/ml [facility] Comment: The D-Dimer assay is used to aid in the diagnosis of deep vein thrombosis and pulmonary embolism. A normal D-Dimer res ult (less than 500 FEU ng/ml) has a negative predictive value of approximate ly 95% for the exclusion of acute PE and DVT when there is low to moderate pr etest probability. Specimen Anatomical Collection Method Collection Time Receive d Time (Source) Location / / Volume Laterality Blood specimen 05/14/2013 10:53 3 (specimen) AM EST 11:03 AM EST Resulting Agency Comment Spec In Lab Alem Fuentes MD HEMATOLOGY ORDERABLES Performing Organization Address City/[facility]/ZIP Code Phon e Number [address] CERNER MILLENNIUM Fibrinogen (05/14/2013 10:53 AM EST) athologist Signature Fibrinogen 201 175 - 450 CERNER mg/dL [facility] Specimen Anatomical Collection Method Collection Time Receive d Time (Source) Location / / Volume Laterality Blood specimen 05/14/2013 10:53 3 (specimen) AM EST 11:03 AM EST Resulting Agency Comment Spec In Lab Alem Fuentes MD HEMATOLOGY ORDERABLES Performing Organization Address City/[facility]/ZIP Code Phon e Number [address] CERNER MILLENNIUM Thrombin time (05/14/2013 10:53 AM EST) P athologist Signature Thrombin Time 19 15 - 20 CERNER sec [facility] Specimen Anatomical Collection Method Collection Time Receive d Time (Source) Location / / Volume Laterality Blood specimen 05/14/2013 10:53 3 (specimen) AM EST 11:03 AM EST Resulting Agency Comment Spec In Lab Alem Fuentes MD HEMATOLOGY ORDERABLES Performing Organization Address City/State/[place] [address] [facility] MILLENNIUM (ABNORMAL) APTT (05/14/2013 10:53 AM EST) P athologist Signature PTT 23 (L) 25 - 35 sec [facility] Comment: Recommended therapeutic PTT range for fu ll dose unfractionated heparin is 80-114 seconds. Specimen Anatomical Collection Method Collection Time Receive d Time (Source) Location / / Volume Laterality Blood specimen 05/14/2013 10:53 3 (specimen) AM EST 11:03 AM EST Resulting Agency Comment Spec In Lab Alem Fuentes MD HEMATOLOGY ORDERABLES Performing Organization Address City/[facility]/ZIP Code Phon e Number [address] [facility] Prothrombin Time (05/14/2013 10:53 AM EST) P athologist Signature PT 14.9 12.0 - 15.0 [facility]: [facility] Transfusion Committee Guidelines: I NR less than 2.0, PTT less than OR equal to 43.5 seconds, or Fibrinogen gre ater than or equal to 100 mg/dl indicate adequate procoagulant activity for hemostasis in patients without underlying bleeding disorders. INR 1.1 0.9 - 1.1 [facility] Specimen Anatomical Collection Method Collection Time Receive d Time (Source) Location / / Volume Laterality Blood specimen 05/14/2013 10:53 3 (specimen) AM EST 11:03 AM EST Resulting Agency Comment Spec In Lab Alem Fuentes MD HEMATOLOGY ORDERABLES Performing Organization Address City/[facility]/ZIP Code Phon e Number [address] [facility] MILLENNIUM Peripheral Smear Review (05/14/2013 7:36 AM EST) [facility] gist Method Time Signature Periph Smear See Comment CERNER Rev MILLENNIUM Comment: When completed by the Pathologist, repor [id number] will display under Hematopathology Reports. Specimen Anatomical Collection Method Collection Time Receive d Time (Source) Location / / Volume Laterality Blood specimen 05/14/2013 7:36 AM 013 7:40 (specimen) EST AM EST Resulting Agency Comment Spec In Lab Alem Fuentes MD HEMATOLOGY ORDERABLES Performing Organization Address City/[facility]/ZIP Code Phon e Number [address] CERNER MILLENNIUM Lactate Dehydrogenase (05/14/2013 7:36 AM EST) P athologist Signature LDH Not Perf 110 - 220 CERNER unit/L MILLENNIUM Comment: Unable to quantitate due to yennifer ple hemolysis. Sample redraw suggested. Specimen Anatomical Collection Method Collection Time Receive d Time (Source) Location / / Volume Laterality Blood specimen 05/14/2013 7:36 AM 013 7:43 (specimen) EST AM EST Resulting Agency Comment Spec In Lab Alem Fuentes MD CHEMISTRY ORDERABLES Performing Organization Address City/[facility]/[place] [address] CERNER MILLENNIUM Iron and TIBC (05/14/2013 7:36 AM EST) P athologist Signature Iron 71 45 - 160 CERNER mcg/dL MILLENNIUM TIBC 307 250 - 450 CERNER mcg/dL MILLENNIUM Iron Saturation 23 20 - 50 % CERNER MILLENNIUM Specimen Anatomical Collection Method Collection Time Receive d Time (Source) Location / / Volume Laterality Blood specimen 05/14/2013 7:36 AM 013 7:43 (specimen) EST AM EST Resulting Agency Comment Spec In Lab Alem Fuentes MD CHEMISTRY ORDERABLES Performing Organization Address City/[facility]/ZIP Code Phon e Number [address] CERNER MILLENNIUM (ABNORMAL) Gamma GT (05/14/2013 7:36 AM EST) P athologist Signature GGT 124 (H) 8 - 61 CERNER unit/L MILLENNIUM Specimen Anatomical Collection Method Collection Time Receive d Time (Source) Location / / Volume Laterality Blood specimen 05/14/2013 7:36 AM 013 7:43 (specimen) EST AM EST Resulting Agency Comment Spec In Lab Alem Fuentes MD CHEMISTRY ORDERABLES Performing Organization Address City/[facility]/[place] [address] CERNER MILLENNIUM Differential, Automated (05/14/2013 7:36 AM EST) P athologist Signature Neutrophils % 59.2 34.0 - CERNER 71.0 % MILLENNIUM Neutr Abs (ANC) 2.34 1.50 - CERNER 6.30 MILLENNIUM x10(3)/mcL Lymphocytes % 27.8 19.0 - CERNER 53.0 % MILLENNIUM Lymphocytes Abs 1.1 1.0 - 3.6 CERNER x10(3)/mcL MILLENNIUM Monocytes % 9.1 4.0 - 13.0 CERNER % MILLENNIUM Monocyte Abs 0.4 0.2 - 1.0 CERNER x10(3)/mcL MILLENNIUM Eosinophils % 2.8 0.0 - 7.0 CERNER % MILLENNIUM Eosinophils Abs 0.1 0.0 - 0.5 CERNER x10(3)/mcL MILLENNIUM Basophils % 0.8 0.0 - 2.0 CERNER % MILLENNIUM Basophils Abs 0.0 0.0 - 0.2 CERNER x10(3)/mcL MILLENNIUM Immature Gran % 0.30 0.00 - CERNER 0.66 % MILLENNIUM Comment: [...] Location / / Volume Laterality Blood specimen 05/14/2013 7:36 AM 013 7:40 (specimen) EST AM EST Alem Fuentes MD HEMATOLOGY ORDERABLES Performing Organization Address City/[facility]/[place] [address] CERNER MILLENNIUM (ABNORMAL) Comprehensive metabolic panel (non-fasting) (05/14/2013 7:36 AM EST) athologist Signature Glucose Lvl 421 (H) 60 - 199 CERNER mg/dL MILLENNIUM Comment: Diabetes: >=200 mg/dL plus symp toms BUN 17 10 - 20 mg/dL CERNER MILLENNIU M Creatinine 1.40 0.80 - 1.50 mg/dL CERNER MILL ENNIUM Comment: Please note that the pediatric reference intervals supplied above were not validated at [facility]. Results from pediatri c patients should be interpreted in conjunction to the patient's age, height and muscle mass. Sodium 130 (L) 135 - 145 mmol/L CERNER ELISE NIUM Potassium 4.5 3.5 - 5.0 mmol/L CERNER ELISE NIUM [...] - 15 mmol/L CERNER MILLENNIU M Calcium 8.5 8.5 - 10.5 mg/dL CERNER ELISE NIUM Total Protein 7.8 6.4 - 8.3 gm/dL CERNER MIL LENNIUM Albumin 2.9 (L) 3.2 - 5.2 gm/dL CERNER MILLENN IUM AST 30 0 - 39 unit/L CERNER MILLENNIU M ALT 23 0 - 55 unit/L CERNER MILLENNIU M Alk Phos 126 (H) 40 - 120 unit/L CERNER MILLENN IUM Total Bilirubin 0.5 0.2 - 1.3 mg/dL CERNER M ILLENNIUM Bili, Direct 0.2 0.0 - 0.3 mg/dL CERNER MILL ENNIUM Estimated GFR 53 (L) >=60 CERNER MILLENNIU M Comment: This [...] Location / / Volume Laterality Blood specimen 05/14/2013 7:36 AM 013 7:40 (specimen) EST AM EST Resulting Agency Comment Spec In Lab Alem Fuentes MD CHEMISTRY ORDERABLES Performing Organization Address City/State/[place] [address] CERNER MILLENNIUM (ABNORMAL) CBC (with Diff) (05/14/2013 7:36 AM EST) P athologist Signature WBC 4.0 4.0 - 10.0 CERNER x10(3)/mcL MILLENNIUM RBC 3.47 (L) 4.63 - CERNER 6.08 MILLENNIUM x10(6)/mcL Hemoglobin 10.9 (L) 13.7 - CERNER 17.5 gm/dL MILLENNIUM Hematocrit 33.8 (L) 40.0 - CERNER 51.0 % MILLENNIUM MCV 97.4 (H) 79.0 - CERNER 92.0 fL MILLENNIUM MCH 31.4 25.6 - CERNER 32.2 pg MILLENNIUM MCHC 32.2 32.0 - CERNER 36.5 gm/dL MILLENNIUM Platelets 88 (L) 145 - 370 CERNER x10(3)/mcL MILLENNIUM RDWSD 47.8 (H) 35.0 - CERNER 46.0 fL MILLENNIUM RDWCV 13.6 10.9 - CERNER 14.4 % MILLENNIUM MPV 11.6 9.0 - 12.0 CERNER fL MILLENNIUM Specimen Anatomical Collection Method Collection Time Receive d Time (Source) Location / / Volume Laterality Blood specimen 05/14/2013 7:36 AM 013 7:40 (specimen) EST AM EST Resulting Agency Comment Spec In Lab Alem Fuentes MD HEMATOLOGY ORDERABLES Performing Organization Address City/State/[place] [address] [facility] documented in this encounter Visit Diagnoses Diagnosis Nausea and vomiting Nausea with vomiting Anemia Anemia, unspecified Thrombocytopenia Thrombocytopenia, unspecified Anemia Anemia, unspecified Thrombocytopenia Thrombocytopenia, unspecified documented in this encounter Care Teams Rejogger Relationship Specialty Start Date End Date Jazmine Baer MD PCP - General 11/07/10 [address] [place] [address] documented as of this encounter
--- OUTSIDE RECORDS SUMMARY | 2022-04-11 10:57 | XMS_ITS | Encounter Summary ---
:1960 Author Organization [facility] [place] [place] [address] Care Team Providers Name Role Phone Jazmine Baer MD Primary Care Provider Encounter Details Date Type Department Care Team Description 04/14/2013 Orders Only Hematology and Alem Evangelista Nausea and vomiting; [place] [facility] [place] Nikia [facility] [address] [place] HEMATOLOGY/ONCOLOGY [id number] DEPT. [phone] [place], [place] [address] (Wo rk) Social History Tobacco [...] 06/19/2022 Office Visit Rheumatology Richi Blackmon MD [facility] RHEUMATOLOGY DEP [place], [place] [address] (Wo rk) Scheduled Procedures Name Priority Associated Diagnoses Date/Time EGD, UPPER GI ENDOSCOPY Family hx of colon cance r COLONOSCOPY, DIAGNOSTIC Family hx of colon cance r documented as of this encounter Results (ABNORMAL) Comprehensive metabolic panel (non-fasting) (05/14/2013 7:36 AM EST) P athologist Signature Glucose Lvl 421 (H) 60 - 199 CERNER mg/dL MILLENNIUM Comment: Diabetes: >=200 mg/dL plus symp toms BUN 17 10 - 20 mg/dL CERNER MILLENNIU M Creatinine 1.40 0.80 - 1.50 mg/dL CERNER MILL ENNIUM Comment: Please note that the pediatric reference intervals supplied above were [place] validated [place] [facility] [place]. Results [...] Resulting Agency Comment Spec In Lab Alem Evangelista MD CHEMISTRY ORDERABLES Performing Organization Address City/State/[place] [address] CERNER MILLENNIUM (ABNORMAL) CBC [...] Resulting Agency Comment Spec In Lab Alem Evangelista MD HEMATOLOGY ORDERABLES Performing Organization Address City/State/[place] [address] [facility] documented in this encounter Visit Diagnoses Diagnosis Nausea and vomiting Nausea with vomiting Anemia Anemia, unspecified documented in this encounter Care Teams Clay Miner Relationship Specialty Start Date End Date Jazmine Baer MD PCP - General 11/07/10 [address] [place] [address] documented as of this encounter
--- OUTSIDE RECORDS SUMMARY | 2022-04-11 10:57 | XMS_ITS | Encounter Summary ---
:1960 Author Organization [facility] Address [facility] [facility] [place] [address] Care Team Providers Name Role Phone Jazmine Baer MD Primary Care Provider Encounter Details Date Type Department Care Team Description 05/28/2013 Surgery Outpatient Surgery Alem Fuentes (O [place] MSURG) BONE MARROW Center Fiona Montejo MD ASP PERFORMED W/BX [facility] DR TOVAR INCISION (WRVU 0.16) [facility] HEMATOLOGY/[place] [address] [place] [address] [phone] (Wo rk) Social History Tobacco Use Types [...] Sign Reading Time Taken Comments Blood Pressure 132/57 05/28/2013 3:29 PM EST Pulse 72 05/28/2013 3:29 PM EST Temperature 36.4 ??C (97.5 ??F) 05/28/2013 2:11 PM EST Respiratory Rate 18 05/28/2013 3:29 PM EST Oxygen Saturation 96% 05/28/2013 3:29 PM EST Inhaled Oxygen Concentration - - Weight - - Height - - Body Mass Index - - documented in this encounter Discharge Instructions Discharge InstructionsMariposa Smith RN - 05/28/2013 1:56 PM EST OUTPATIENT SURGERY POST-OPERATIVE INSTRUCTIONS BONE MARROW BIOPSY SITE 1. You have had a bone marrow aspiration and or/biopsy, which is like having an operation with a tiny, deep incision. 2. Do Not do any strenuous work today, like housework, yard work, lifting more than 5 pounds, jogging, tennis or golf as it may cause your bone marrow [...] 5pm or on a weekend: Call the [facility] cement grinding mill operator at and ask for the physician vocational rehabilitation consultant covering for your doctor. Instructions following sedation [...] occurs, please contact your M. D. [address] ??? [place] [address] ??? [phone] ??? [email or web address] [employer] ??? [facility] ??? [facility] ??? .[facility] documented in this encounter Medications at Time [...] documented as of this encounter H&P Notes Deja Wagner APRN - 05/28/2013 2:52 PM EST Bucky Beth is here today for a bone marrow biopsy and aspirate. No changes in H & P since last exam dated 05/14/13. We will proceed with planned procedure. documented in this encounter Procedure Notes Deja Wagner APRN - 05/28/2013 3:32 PM EST BONE MARROW BIOPSY AND ASPIRATION PROCEDURE NOTE Bone Marrow Biopsy & Aspiration with Conscious Sedation - Unilateral Date/Time of Procedure: 05/28/13 at 1515 Proceduralist: Deja Wagner APRN DIAGNOSIS: Pre-Procedure: (x) Consent signed and on chart. (x) CBC drawn within 3 days. (x) Medications/Allergies/Problem List reviewed. (x) H & P complete Prior to start of procedure the following is verified in a TIME OUT: (x) Patient identity (x) Planned procedure (x) Safety concerns IV ACCESS: Per sedation RN PAIN INTERVENTION: Per sedation RN Sterile Condition: Chlorohexidine/betadine was used to sterilize the area. Sterile drapes were used to create a sterile field. Local Anesthesia: 1% Lidocaine- 20 mL PROCEDURE: A bone marrow biopsy and aspiration was performed on the right posterior iliac crest. Pressure applied to site(s) for at least 20 minutes following the procedure and Tegaderm placed. Estimated Blood Loss: minimal Complications: none POST INTERVENTION CARE & PAIN ASSESSMENT: Per [facility] nurses. Follow-up: Written/Verbal instructions for site care given to patient per [facility] nurses. Follow-up with Physician as instructed. documented in this encounter Miscellaneous Notes Miscellaneous - Provider, Scanning - 05/28/2013 11:00 PM EST Miscellaneous - Provider, Scanning - 05/28/2013 2:03 PM EST documented in this encounter Plan of Treatment Upcoming Encounters Date Type Specialty Care Team Description 06/19/2022 Office Visit Rheumatology Richi Blackmon MD [facility] ER DR RHEUMATOLOGY [place], [place] [address] (Wo rk) Scheduled Procedures Name Priority Associated Diagnoses Date/Time EGD, UPPER GI ENDOSCOPY Family hx of colon cance r COLONOSCOPY, DIAGNOSTIC Family hx of colon cance r documented as of this encounter Procedures Procedure Name Priority Date/Time Associated Diagnosis Comme nts CHROMO REPORT ACQUIRED Routine 05/28/2013 5:07 Re sults for PM EST this procedure are in the results section. IMMUNOPHENOTYPING FLOW Routine 05/28/2013 3:15 Re sults for CYTOMETRY PM EST this procedure are in the results section. IRON STAIN, BONE MARROW Routine 05/28/2013 3:15 R esults for PM EST this procedure are in the results section. BONE MARROW PANEL Routine 05/28/2013 3:15 ([facility]/APD) PM EST ([facility] MSURG) BONE MARROW 05/28/2013 2:51 anemia and BIOPSY; DIAGNOSTIC (WRVU PM EST thrombocytopenia 1.37) ([facility] MSURG) BONE MARROW 05/28/2013 2:51 anemia and ASP PERFORMED W/BX THRU PM EST thrombocytopenia BX INCISION (WRVU 0.16) DIFFERENTIAL, AUTOMATED Routine 05/28/2013 2:40 R esults for PM EST this procedure are in the results section. CBC (WITH DIFF) Routine 05/28/2013 2:40 Results f or PM EST this procedure are in the results section. BONE MARROW FLOW Routine 05/28/2013 2:05 Results for CYTOMETRY REPORT PM EST this proced ure are in the results section. BONE MARROW FINAL REPORT Routine 05/28/2013 2:05 Results for PM EST this procedure are in the results section. documented in this encounter Results chromo report acquired (05/28/2013 5:07 PM EST) Component Value Ref Test Analysis Performed At [facility] Range Method Time Signature Cytogenetics Final Report CERNER Acquired Report [facility] Department of Pathology - Cytogenetics Laboratory [address] [place] [address] [id number] ---Clinical Information--- Indication for Study: Anemia ?thrombocytopenia Specimen: ? Bone Marrow Accession: ?[id number] Collection Date/Time: 05/28/2013 15:15 Received Date/Time: ?? 05/29/2013 10:41 ---Preparation--- 24 and 48 hour short term cultures Banding Method: ??G-banding Banding Level: 400-450 bands ---Analysis--- Total Cultures Analyzed: ??2 Total Metaphase Cells Counted: ??20 Total Metaphase Cells Analyzed: ??20 Total Metaphase Cells Karyotyped: ??4 ---Karyotype--- 46,XY[20] ---Interpretation--- Cytogenetic analysis revealed a normal male karyotype of 46, XY. No clonal abnormalities were observed. 03.10.14 (Electronic Signature) Verified By: Lawrence FONSECA, Ph.D., Protestant Hospitaling Director, Cytogenetics Specimen (Source) Anatomical Collection Method Collection Time Re ceived Time Location / / Volume Laterality 05/28/2013 5:07 PM EST Alem Fuentes MD HEMATOLOGY ORDERABLES Performing Organization Address City/State/ZIP Code Phon e Number [address] [facility] Immunophenotyping Flow Cytometry (05/28/2013 3:15 PM EST) Component Value Ref Test Analysis Performed At [facility] gist Range Method Time Signature Type of Specimen Bone CERNER Marrow MILLENNIUM Panel Requested Other [facility] MILLENNIUM Immunophenotyping See CERNER Flow Comment MILLENNIUM Comment: When completed by the Pathologist, the F low Cytometry Report ([id number]) will display under the Hematopathology Repor ts result section in [facility]. Specimen Anatomical Collection Method Collection Time Receive d Time (Source) Location / / Volume Laterality Body fluid 05/28/2013 3:15 PM 3 8:29 specimen EST AM EST (specimen) Resulting Agency Comment Spec In Lab Alem Fuentes MD HEMATOLOGY ORDERABLES Performing Organization Address City/[facility]/[place] [address] CERNER MILLENNIUM Iron Stain, Bone Marrow (05/28/2013 3:15 PM EST) [facility] gist Method Time Signature Iron Stain BM See Comment CERNER MILLENNIUM Comment: See Bone Marrow Report [id number] under Hematopathology Reports. Specimen Anatomical Collection Method Collection Time Receive d Time (Source) Location / / Volume Laterality Bone marrow 05/28/2013 3:15 PM 3 3:51 specimen EST PM EST (specimen) Resulting Agency Comment Spec In Lab Alem Fuentes MD HEMATOLOGY ORDERABLES Performing Organization Address City/[facility]/ZIP Code Phon e Number [address] CERNER MILLENNIUM Differential, Automated (05/28/2013 2:40 PM EST) P athologist Signature Neutrophils % 52.4 34.0 - CERNER 71.0 % MILLENNIUM Neutr Abs (ANC) 2.67 1.50 - CERNER 6.30 MILLENNIUM x10(3)/mcL Lymphocytes % 30.5 19.0 - CERNER 53.0 % MILLENNIUM Lymphocytes Abs 1.6 1.0 - 3.6 CERNER x10(3)/mcL MILLENNIUM Monocytes % 10.8 4.0 - 13.0 CERNER % MILLENNIUM Monocyte Abs 0.6 0.2 - 1.0 CERNER x10(3)/mcL MILLENNIUM Eosinophils % 5.3 0.0 - 7.0 CERNER % MILLENNIUM Eosinophils Abs 0.3 0.0 - 0.5 CERNER x10(3)/mcL MILLENNIUM Basophils % 1.0 0.0 - 2.0 CERNER [...] Location / / Volume Laterality Blood specimen 05/28/2013 2:40 PM 013 3:51 (specimen) EST PM EST Alem Fuentes MD HEMATOLOGY ORDERABLES Performing Organization Address City/State/[place] [address] CERNER MILLENNIUM (ABNORMAL) CBC (with Diff) (05/28/2013 2:40 PM EST) P athologist Signature WBC 5.1 4.0 - 10.0 CERNER x10(3)/mcL MILLENNIUM RBC 3.61 (L) 4.63 - CERNER 6.08 MILLENNIUM x10(6)/mcL Hemoglobin 11.5 (L) 13.7 - CERNER 17.5 gm/dL MILLENNIUM Hematocrit 34.4 (L) 40.0 - CERNER 51.0 % MILLENNIUM MCV 95.3 (H) 79.0 - CERNER 92.0 fL MILLENNIUM MCH 31.9 25.6 - CERNER 32.2 pg MILLENNIUM MCHC 33.4 32.0 - CERNER 36.5 gm/dL MILLENNIUM Platelets 101 (L) 145 - 370 CERNER x10(3)/mcL [facility] RDWSD 48.4 (H) 35.0 - CERNER 46.0 fL MILLENNIUM RDWCV 13.9 10.9 - CERNER 14.4 % MILLENNIUM MPV 12.5 (H) 9.0 - 12.0 CERNER fL MILLENNIUM Specimen Anatomical Collection Method Collection Time Receive d Time (Source) Location / / Volume Laterality Blood specimen 05/28/2013 2:40 PM 013 3:51 (specimen) EST PM EST Resulting Agency Comment Spec In Lab Alem Fuentes MD HEMATOLOGY ORDERABLES Performing Organization Address City/State/[place] [address] CERNER MILLENNIUM Bone Marrow Flow Cytometry Report (05/28/2013 2:05 PM EST) Component Value Ref Test Analysis Performed At [facility] gist Range Method Time Signature Bone Marrow CERNER Flow ? [facility] MILLENNIUM Cytometry Report ? Provider: ?? ALEM FUENTES Pt. Name: ?? S BUCKY POWERS ?M ? Acc #: ?[id number] ? Pt. ? Col Date: ?? 05/28/20 13 ?/Sex: ?1960,(53 years),Male ? Rec Date: ?? 05/28/2013 ?LOC: ?[facility] ? ANALYTICAL CELL PATHOLOGY ? ---Clinical Information--- ? 53 yo man with anemia and thrombocytopenia. ? ---Preparation--- ? FCM: [id number] ? [id number] ? Bone Marrow ? ---Markers--- ? Cells for immunopheno typic analysis were derived from bone marrow. ??CD45 vs ? side scatter gating was utilized to identify a lymphoid analysis region ? that comprises approximately 6% of all cells. ? The following markers were assese d: CD2, CD3, CD4, CD5, CD7, CD8, CD10, ? CD19, CD20, CD38, CD45, CD56, veda pa light chain and lambda light chain. ? ---Interpretation--- ? DIAGNOSIS: NO EVIDENC E FOR INVOLVEMENT OF THE BONE MARROW BY A MONOCLONAL ? LYMPHOPROLIFERATIVE OR PLASMA CELL NEOPLASM (SEE COMM ENT) ? 05/29/13 ? 05/31/13 Verified by: ? Hui FONSECA, Randi West ? (Electronic Si gnature) ? ---Comment--- ? The majority of lymph ocytes in this bone marrow aspirate specimen are CD3+ ? T-cells (67% of lymph ocytes; 4% of total cells) with an appropriate mixture ? of mature CD4+ and CD8+ forms (CD 4:CD8 ratio approximately 1.2) without ? aberrant antigen loss or expression. CD3-CD56+ NK cells constitute 12% of ? lymphocytes (1% of to tristin cells). B-cells account for 19% of lymphocytes (1% ? of total cells) and express surfa ce light chains in a polytypic pattern ? (kappa:lambda approximately 2.0), thus there is no immmunophenotypic ? evidence for involvement of the bone marrow by a mono clonal B-cell ? lymphoproliferative n eoplasm. Similarly, plasma cells are polyclonal. No ? increased myeloblast population i s identified by CD45/right angle light ? scatter gating. These immunopheno typic findings support the morphologic ? impression (see separate report). ? Flow analysis is an ancillary study. A definite diagn osis requires ? correlation with the morphologic features of this process and if necessary, ? [facility] ? Provider: ?? ALEM FUENTES Pt. Name: ?? BUCKY BETH ?M ? Acc #: ?[id number] ? Pt. ? Col Date: ?? 05/28/20 13 ?/Sex: ?1960,(53 years),Male ? Rec Date: ?? 05/28/2013 ?LOC: ?[facility] ? correlation with othe r ancillary studies like immunohistochemistry, enzyme ? cytochemistry and/or cyto/molecular genetics. ? ANALYTICAL CELL PATHOLOGY ? This test was develop ed and its performance characteristics determined by ? the Clinical Flow Cytometry Laboratory at [facility] ? Center. It has not been cleared or approved by the U.S. Food and Drug ? Administration. The [employer] has determined that such clearance or approval is ? not necessary. ??This test is used for clinical purposes. ??It should not be ? regarded as investiga tional or for research. ??This laboratory is certified ? under the Clinical La boratory Improvement Act of 1988 (CLIA) as qualified ? to perform high complexity clinical laboratory testin g. Specimen (Source) Anatomical Collection Method Collection Time Re ceived Time Location / / Volume Laterality 05/28/2013 2:05 PM EST Alem Fuentes MD PATHOLOGY/CYTOLOGY ORDERABLE S Performing Organization Address City/State/[place] [address] [facility] Bone Marrow Final Report (05/28/2013 2:05 PM EST) Component Value Ref Test Analysis Performed At [facility] gist Range Method Time Signature Bone Marrow [facility] Final Report ? [facility] ? Provider: ?? ALEM FUENTES Pt. Name: ?? BUCKY BETH ?M ? Acc #: ?[id number] ? Pt. ? Col Date: ?? 05/28/20 13 ?/Sex: ?1960,(53 years),Male ? Rec Date: ?? 05/28/2013 ?LOC: ?[facility] ? HEMATOPATHOLOGY ? ---Clinical Information--- ? Specimen: ? Bone marrow aspi rate and biopsy, right ? Clinical Diagnosis: ? Anemia and thrombocytopenia ? Indication for Study: ?? Evaluate etiology of cytopen ias ? ---Peripheral Blood Findings--- ? The white blood cell count is 5.1K/uL. ??The predom inating cells are ? neutrophils with norm al morphology. No abnormal lymphocytes or circulating ? plasma cells are seen . Slight macrocytic anemia is evident (Hgb 11.5 g/dL; ? MCV 95.3 fL), and RBC morphology is notable for slight anisopoikilocytosis ? with rare microcytes and ovalocytes seen. Platelets are slightly decreased ? in number (101K/uL) b ut exhibit normal morphologic features with occasional ? small clumps present. No blasts or abnormal circulating cell populations ? are appreciated. ? ---Aspirate--- ? The bone marrow aspirate is cellular and particulate with an estimated ? myeloid:erythroid (M: E) ratio of approximately 2:1. A neoplastic infiltrate ? is not identified. Myeloid maturation is sequen tial to the neutrophil ? without dysplastic features or an increase in blasts, and erythroid ? precursors show somew hat megaloblastoid maturation with rare multinucleated ? precursors present. ? ?Megakaryocytes are normal in number and morphology for ? the most part with occasional small cells and c ells with mild nuclear ? atypia seen. Plasma cells are prominent in some areas but are ? morphologically normal. Lymphocytes have normal morphology and are not ? increased in number. An iron stain is performed and demonstrates that iron ? stores are present and distributed appropriately in m acrophages. No ? increase in ringed sideroblasts is appreciated. ? ---Differential--- ? Neutrophils/bands 39%, Lymphocytes 7%, Monocytes 1% , Eosinophils 6%, ? Basophils 0%, Metamye locytes 0%, Myelocytes 7%, Promyelocytes 2%, Blasts ? 2%, Erythroid precursors 32%, Plasma cells 4%. ? ---Enzyme Cytochemistry--- ? Not performed. ? ---Biopsy and/or Clot Section--- ? The decalcified bone marrow biopsy specimen consist s of cortical and ? trabecular bone and hematopoietic tissue in multiple fragments with ? substantial clot appe nded. The bone marrow appears normocellular for age ? with an overall cellularity estimated at approximatel y 50%. Myeloid ? [facility] ? Provider: ?? ALEM FUENTES Pt. Name: ?? BUCKY BETH ?M ? Acc #: ?[id number] ? Pt. ? Col Date: ?? 05/28/20 13 ?/Sex: ?1960,(53 years),Male ? Rec Date: ?? 05/28/2013 ?LOC: ?[facility] ? maturation is once ag ain seen as sequential to the neutrophil without an ? increase in blasts, and active ? HEMATOPATHOLOGY ? islands of maturing erythroid precursors are present throughout. ? Megakaryocytes are present in normal number, have a generally normal ? morphology and are distributed in a edinson l pattern throughout the bone ? marrow space without significant cluster formation or abnormal ? localization. There are no lympho id aggregates, granulomata or abnormal ? infiltrating nonhemat opoietic cell populations. The bony trabeculae appear ? normal for age. ? ---Diagnosis--- ? 1. ?? MILD ANEMIA & THROMBOCYTOPE KATTY WITH PLATELET CLUMPING, PERIPHERAL ? BLOOD ? 2. ?? NORMOCELLULAR MARROW WITH MATURING TRILINEAGE H EMATOPOIESIS ? 3. ?? NO DEFINITIVE M ORPHOLOGIC EVIDENCE FOR A MYELODYSPLASTIC SYNDROME AND ? NO EVIDENCE FOR ? INVOLVEMENT BY A HEMATOLYMPHOID NEOPLASM (SEE COMMENT ) ? 05/29/13 ? OVD ? 05/31/13 Verified by: ? Hui FONSECA, Randi West ? (Electronic Si gnature) ? The attending pathologist whose signature appears o n this report has ? reviewed all diagnostic slides and has edited the talia ss and/or ? microscopic portion of the report in rendering the fi nal pathologic ? diagnosis. ? ---Comment--- ? Flow cytometry immuno phenotype analysis was performed concurrently on the ? bone marrow aspirate specimen (see separate report) and showed no evidence ? for a monoclonal lymphoproliferative or plasma cell n eoplasm and no ? increased myeloblast population. While there is some atypia in both the ? erythroid and megakar yocyte lines, the morphologic features do not rise to ? the level of a diagno sis of a myelodysplastic syndrome (MDS) at this time. ? Note is made of the history of tr eatment with methotrexate and slow but ? steady improvement in blood counts and decrease in MCV since cessation of ? the medication. The c urrent morphologic findings in this blood and marrow ? would be consistent w ith recovery from treatment with an antifolate agent. ? Alternatively, though the current findings do not satisfy W.H.O. criteria ? for a diagnosis of a myelodysplastic syndrome (MDS) at this time, we could ? be looking at an early MDS, and a clonal cytogenetic change would favor ? [facility] ? Provider: ?? ALEM FUENTES Pt. Name: ?? BUCKY BETH ?M ? Acc #: ?[id number] ? Pt. ? Col Date: ?? 05/28/20 13 ?/Sex: ?1960,(53 years),Male ? Rec Date: ?? 05/28/2013 ?LOC: ?[facility] ? this diagnosis. Accordingly, the specimen has been ro bmitted for ? cytogenetic analysis, and the results roldan l be reported separately when ? available. Interestingly, while there is mild thrombo cytopenia by ? HEMATOPATHOLOGY ? the automated countin g method, there are platelet clumps identified on the ? peripheral smear, sug gesting that the actual platelet count may be somewhat ? higher than documente d. A recheck of the platelet count in a citrated blood ? tube (blue top) is recommended to establish a true pl atelet count. Specimen (Source) Anatomical Collection Method Collection Time Re ceived Time Location / / Volume Laterality 05/28/2013 2:05 PM EST Alem Fuentes MD PATHOLOGY/CYTOLOGY ORDERABLE S Performing Organization Address City/State/[place] [address] [facility] documented in this encounter Visit Diagnoses Not on filedocumented in this encounter Administered Medications Inactive Administered Medications - up to 3 most recent administrations Medication Order MAR Action Action Date Dose Rate Site fentaNYL 50mcg/mL injection Given 05/28/2013 3:07 PM EST 25 mcg 25-100 mcg, Intravenous, EVERY 5 MIN PRN, Starting on Raiza 05/28/13 at 1356, Until Raiza 05/28/13 at 1601, Pain, Hold for respiratory rate less than 8 breaths per minute. (maximum dose 200 mcg) , Intra-Operative (Intra-Procedure), Routine Given 05/28/2013 3:02 PM EST 50 mcg midazolam (VERSED) injection 0.5-2 mg Given 05/28/2013 3:07 PM EST 1 mg 0.5-2 mg, Intravenous, EVERY 5 MIN PRN, Starting on Raiza 05/28/13 at 1356, Until Raiza 05/28/13 at 1601, Sleep, Anxiety, Hold for delirium/agitation. (maximum dose 5 mg), Intra-Operative (Intra-Procedure), Routine Given 05/28/2013 3:00 PM EST 2 mg sodium chloride 0.9% infusion New Bag 05/28/2013 2:38 PM EST 100 mL/hr 100 mL/hr 100 mL/hr, Intravenous, CONTINUOUS, Starting on Raiza 05/28/13 at 1415, Until Raiza 05/28/13 at 1601, Day of Surgery (Day of Procedure) documented in this encounter Active and Recently Administered Medications Times are shown in EST. Continuous Medication Order 05/26/2013 05/27/2013 05/28/2013 sodium chloride 0.9% infusion (CANCELED) 1438 (New Bag - Provider: Mariposa Smith RN) 100 mL/hr, at 100 mL/hr, Intravenous, CO NTINUOUS, Starting Raiza 05/28/13 at 1415, Until Raiza 05/28/13 at 1601, Day of Surgery (Day of Procedure) PRN Medication Order 05/26/2013 05/27/2013 05/28/2013 fentaNYL 50mcg/mL injection (CANCELED) 1502 (Given - Provider: Mariposa Smith RN)1507 (Given - Provider: Mariposa Smith RN) 25-100 mcg, Intravenous, EVERY 5 MIN PRN , Starting Raiza 05/28/13 at 1356, Until Raiza 05/28/13 at 1601, Pain, Hold for respiratory rate less than 8 breaths per minute. (maximum dose 200 mcg) , Intra-Operative (Intra-Procedure), Routine midazolam (VERSED) injection 0.5-2 mg (CANCELED) 1500 (Given - Provider: Mariposa Smith, WES)1507 (Given - Provider: Mariposa Smith RN) 0.5-2 mg, Intravenous, EVERY 5 MIN PRN, Starting Raiza 05/28/13 at 1356, Until Raiza 05/28/13 at 1601, Sleep, Anxiety, Hold for delirium/agitation. (maximum dose 5 mg), Intra-Operative (Intra-Procedure), Routine documented in this encounter Care Teams Release Of Information Clerk Relationship Specialty Start Date End Date Jazmine Baer MD PCP - General 11/07/10 [address] [place] [address] documented as of this encounter
--- OUTSIDE RECORDS SUMMARY | 2022-04-11 10:57 | XMS_ITS | Encounter Summary ---
:1960 Author Organization [facility] [place] [address] Care Team Providers Name Role Phone Jazmine Baer MD Primary Care Provider Encounter Details Date Type Department Care Team Description 02/05/2013 Telephone [place] [facility] [place] Ruperto Mcclellan MD [facility] [place] [address] NEUROLOGY DEPT [phone] [place] [id number] (Wo rk) Social History Tobacco Use Types [...] Telephone Encounter - Ruperto Mcclellan MD - 02/05/2013 4:15 PM EDT Tried to reach patient to advise him to stop taking methotrexate until he hears from his PCP or Dr. Marie, however the eD listed phone number is a wrong number. ([phone]). Called a listed family's phone number which was [phone] but no answer. Contacted patient's PCP and it seems that the platelet has indeed dropped from normal range since the last draw in June 2012. As I will be out of town / country for a week after tomorrow, PCP will try to contact patient to advise him. I have faxed the lab results from today to Dr. Marie's office as I have not heard from him. Patient's PCP will also get in touch with Dr. Marie. Recent Results (from the past 24 hour(s)) CK Component Value Range CK, Total 286 (*) 0 - 200 unit/L CBC (WITH DIFF) Component Value Range WBC 5.0 4.0 - 10.0 x10(3)/mcL RBC 3.11 (*) 4.63 - 6.08 x10(6)/mcL Hemoglobin 10.4 (*) 13.7 - 17.5 gm/dL Hematocrit 32.4 (*) 40.0 - 51.0 % MCV 104.2 (*) 79.0 - 92.0 fL MCH 33.4 (*) 25.6 - 32.2 pg MCHC 32.1 32.0 - 36.5 gm/dL Platelets 64 (*) 145 - 370 x10(3)/mcL RDWSD 67.8 (*) 35.0 - 46.0 fL RDWCV 18.3 (*) 10.9 - 14.4 % MPV 11.2 9.0 - 12.0 fL BASIC METABOLIC PANEL (NON-FASTING) Component Value Range Glucose Lvl 178 60 - 199 mg/dL BUN 24 (*) 10 - 20 mg/dL Creatinine 1.14 0.80 - 1.50 mg/dL Sodium 132 (*) 135 - 145 mmol/L Potassium 3.7 3.5 - 5.0 mmol/L Chloride 100 98 - 107 mmol/L CO2 22 22 - 31 mmol/L Anion Gap 10 5 - 15 mmol/L Calcium 8.7 8.5 - 10.5 mg/dL Estimated GFR >60 >=60 HEPATIC FUNCTION PANEL Component Value Range Total Protein 7.9 6.4 - 8.3 gm/dL Albumin 2.8 (*) 3.2 - 5.2 gm/dL AST 38 0 - 39 unit/L ALT 27 0 - 55 unit/L Alk Phos 121 (*) 40 - 120 unit/L Total Bilirubin 1.0 0.2 - 1.3 mg/dL Bili, Direct Not Perf 0.0 - 0.3 mg/dL FERRITIN Component Value Range Ferritin 894 (*) 30 - 400 ng/mL IRON AND TIBC Component Value Range Iron 76 45 - 160 mcg/dL TIBC 263 250 - 450 mcg/dL Iron Saturation 29 20 - 50 % DIFFERENTIAL, AUTOMATED Component Value Range Neutrophils % 38.8 34.0 - 71.0 % Neutr Abs (ANC) 1.95 1.50 - 6.30 x10(3)/mcL Lymphocytes % 30.5 19.0 - 53.0 % Lymphocytes Abs 1.5 1.0 - 3.6 x10(3)/mcL Monocytes % 17.3 (*) 4.0 - 13.0 % Monocyte Abs 0.9 0.2 - 1.0 x10(3)/mcL Eosinophils % 12.2 (*) 0.0 - 7.0 % Eosinophils Abs 0.6 (*) 0.0 - 0.5 x10(3)/mcL Basophils % 1.0 0.0 - 2.0 % Basophils Abs 0.0 0.0 - 0.2 x10(3)/mcL Immature Gran % 0.20 0.00 - 0.66 % Tamara Gran Abs 0.01 0.00 - 0.05 x10(3)/mcL documented in this encounter Plan of Treatment Upcoming Encounters Date Type Specialty Care Team Description 06/19/2022 Office Visit Rheumatology Richi Blackmon MD [facility] MEDICAL [facility] DR RHEUMATOLOGY [place] [address] (Wo rk) Scheduled Procedures Name Priority Associated Diagnoses Date/Time EGD, UPPER GI ENDOSCOPY Family hx of colon cance r COLONOSCOPY, DIAGNOSTIC Family hx of colon cance r documented as of this encounter Visit Diagnoses Not on filedocumented in this encounter Care Teams Sugar Drier Relationship Specialty Start Date End Date Jazmine Baer MD PCP - General 11/07/10 [address] [place] [address] documented as of this encounter
--- OUTSIDE RECORDS SUMMARY | 2022-04-11 10:57 | XMS_ITS | Encounter Summary ---
:1960 Author Organization [facility] [place] [address] Care Team Providers Name Role Phone Jazmine Baer MD Primary Care Provider Encounter Details Date Type Department Care Team Description 05/13/2013 Telephone [place] [facility] Bethanie Gorman APRN [facility] [place] [address] [place], [place] [id number] [phone] (Wo rk) Social History Tobacco Use Types [...] Telephone Encounter - Bethanie Gorman APRN - 05/13/2013 4:42 PM EST Contacted Mr. Acevedo with the results of his SBFT that was normal and GES normal (1% at 4 hrs). He reports experiencing periodic N/V. Discussed increasing Prilosec to 40 mg BID and he is amenable to trying. He will schedule a f/u appt. documented in this encounter Plan of Treatment Upcoming Encounters Date Type Specialty Care Team Description 06/19/2022 Office Visit Rheumatology Richi Blackmon MD [facility] MEDICAL [facility] DR RHEUMATOLOGY [place], [place] [address] (Wo rk) Scheduled Procedures Name Priority Associated Diagnoses Date/Time EGD, UPPER GI ENDOSCOPY Family hx of colon cance r COLONOSCOPY, DIAGNOSTIC Family hx of colon cance r documented as of this encounter Visit Diagnoses Not on filedocumented in this encounter Care Teams Steam Brush Operator Relationship Specialty Start Date End Date Jazmine Baer MD PCP - General 11/07/10 [address] [place] [address] documented as of this encounter
--- OUTSIDE RECORDS SUMMARY | 2022-04-11 10:57 | XMS_ITS | Encounter Summary ---
:1960 Author Organization [facility] [place] [address] Care Team Providers Name Role Phone Jazmine Baer MD Primary Care Provider Reason for Visit Reason Onset Date Comments Medication Problem 07/10/2011 IVIG Encounter Details Date Type Department Care Team Description 07/10/2011 Telephone [place]rology [place] [facility] [place] Hilary David MD Medication Problem [facility] (IV [place]) [place] [address] NEUROLOGY DEPT. [phone] [place] [address] (Wo rk) Social History Tobacco Use Types [...] this encounter Miscellaneous Notes Telephone Encounter - Kristin Olsen LPN - 07/10/2011 9:46 AM EST Cathy Harrington from the [facility] ([phone])reports that Mr. Acevedo's insurance is changing at the [facility] June and the new insurance has not approved the IVIG infusions yet. It is expected it will be the second week in July before they will be able to do the two consecutive days of IVIG. Dr. Hilary David paged. Per Dr. David the patient may have infusions one week later than originally planned. Cathy Harrington called and notified of above. documented in this encounter Plan of Treatment Upcoming Encounters Date Type Specialty Care Team Description 06/19/2022 Office Visit Rheumatology Richi Blackmon MD [facility] DR RHEUMATOLOGY [place], [place] [address] (Wo rk) Scheduled Procedures Name Priority Associated Diagnoses Date/Time EGD, UPPER GI ENDOSCOPY Family hx of colon cance r COLONOSCOPY, DIAGNOSTIC Family hx of colon cance r documented as of this encounter Visit Diagnoses Not on filedocumented in this encounter Care Teams Buffing Wheel Inspector Relationship Specialty Start Date End Date Jazmine Baer MD PCP - General 11/07/10 [address] [place] [address] documented as of this encounter
--- OUTSIDE RECORDS SUMMARY | 2022-04-11 10:57 | XMS_ITS | Encounter Summary ---
:1960 Author Organization [facility] [place] [address] Care Team Providers Name Role Phone Jazmine Baer MD Primary Care Provider Encounter Details Date Type Department Care Team Description 09/17/2011 Telephone Neurology at [facility] [place] Hilary David MD [facility] [place] [address] NEUROLOGY DEPT. [phone] [place] [address] (Wo rk) Social History Tobacco Use Types [...] this encounter Miscellaneous Notes Telephone Encounter - Corrie Ha - 09/17/2011 8:16 AM EDT err documented in this encounter Plan of Treatment Upcoming Encounters Date Type Specialty Care Team Description 06/19/2022 Office Visit Rheumatology Richi Blackmon MD [facility] DR RHEUMATOLOGY [place], [place] [address] (Wo rk) Scheduled Procedures Name Priority Associated Diagnoses Date/Time EGD, UPPER GI ENDOSCOPY Family hx of colon cance r COLONOSCOPY, DIAGNOSTIC Family hx of colon cance r documented as of this encounter Visit Diagnoses Not on filedocumented in this encounter Care Teams Physical Therapy Manager Relationship Specialty Start Date End Date Jazmine Baer MD PCP - General 11/07/10 [address] [place] [address] documented as of this encounter
--- OUTSIDE RECORDS SUMMARY | 2022-04-11 10:57 | XMS_ITS | Encounter Summary ---
:1960 Author Organization [facility] [place] [address] Care Team Providers Name Role Phone Jazmine Baer MD Primary Care Provider Reason for Visit Reason Onset Date Comments Other 02/06/2012 Encounter Details Date Type Department Care Team Description 02/06/2012 Telephone [place]rology [place] [facility] [place] Hilary David MD [facility] Hilda shafer [facility] [place] [address] NEUROLOGY DEPT. [phone] [place] [address] (Wo rk) Social History Tobacco Use Types [...] Telephone Encounter - Hilary David MD - 02/06/2012 12:11 PM EDT Called patient and [facility]. Never received order to sign. It was faxed over again today which Isigned and sent back. They should now be contacting him to arrange infusions. Telephone Encounter - Uma Manriquez - 02/06/2012 11:42 AM EDT Patient calls to give a CPK level update it is 271 from 142 two months ago. Patient is also wondering about the status of the injections instead of the infusions as this patient has not had any infusions since November. Please call back to discuss. documented in this encounter Plan of Treatment Upcoming Encounters Date Type Specialty Care Team Description 06/19/2022 Office Visit Rheumatology Richi Blackmon MD [facility] ER DR RHEUMATOLOGY [place], [place] [address] (Wo rk) Scheduled Procedures Name Priority Associated Diagnoses Date/Time EGD, UPPER GI ENDOSCOPY Family hx of colon cance r COLONOSCOPY, DIAGNOSTIC Family hx of colon cance r documented as of this encounter Visit Diagnoses Not on filedocumented in this encounter Care Teams Senior Drupal Developer Relationship Specialty Start Date End Date Jazmine Baer MD PCP - General 11/07/10 [address] [place] [address] documented as of this encounter
--- OUTSIDE RECORDS SUMMARY | 2022-04-11 10:57 | XMS_ITS | Encounter Summary ---
:1960 Author Organization [facility] [place] [address] Care Team Providers Name Role Phone Jazmine Baer MD Primary Care Provider Reason for Visit Reason Onset Date Comments Other 05/25/2011 Encounter Details Date Type Department Care Team Description 05/25/2011 Telephone [place]rology [place] [facility] [place] Hilary David MD [facility] Hilda shafer [facility] [place] [address] NEUROLOGY DEPT. [phone] [place] [address] (Wo rk) Social History Tobacco Use Types [...] Telephone Encounter - Hilary David MD - 05/25/2011 4:15 PM EST Spoke to Kristin at [facility] regarding plan for Mr. Acevedo. Will proceed with another 6 monthsof IVIG. 1 gram x 2 days q 6 months, Orders sent from [place], signed and returned. Hilary David documented in this encounter Plan of Treatment Upcoming Encounters Date Type Specialty Care Team Description 06/19/2022 Office Visit Rheumatology Richi Blackmon MD [facility] ER DR RHEUMATOLOGY [place], [place] [address] (Wo rk) Scheduled Procedures Name Priority Associated Diagnoses Date/Time EGD, UPPER GI ENDOSCOPY Family hx of colon cance r COLONOSCOPY, DIAGNOSTIC Family hx of colon cance r documented as of this encounter Visit Diagnoses Not on filedocumented in this encounter Care Teams Carpenter Repairer Relationship Specialty Start Date End Date Jazmine Baer MD PCP - General 11/07/10 [address] [place] [address] documented as of this encounter
--- OUTSIDE RECORDS SUMMARY | 2022-04-11 10:57 | XMS_ITS | Encounter Summary ---
:1960 Author Organization [facility] [place] [address] Care Team Providers Name Role Phone Jazmine Baer MD Primary Care Provider Reason for Visit Reason Onset Date Comments Other 12/31/[address] Dvaid on infusions Encounter Details Date Type Department Care Team Description 12/31/2011 Telephone [place]rology [place] [facility] [place]ary David MD Other (updating [facility] on infusions) [place] [address] NEUROLOGY DEPT. [phone] [place] [address] (Wo rk) Social History Tobacco Use Types [...] Telephone Encounter - Hilary David MD - 12/31/2011 4:48 PM EDT Spoke to patient. He was having problems with infusions this last month and the month prior to that.He did call Dr. Marie at [facility] who did want to continue infusions. We discussed option ofputting in some form of permanent access. I will call Dr. Marie and see if subcutaneous forms would be okay. [phone] Telephone Encounter - Marilyn Haddad - 12/31/2011 2:52 PM EDT Patient called to update Dr. David on his infusions that he has been having with Dr. Olivera in [place]. Patient reports that they have been having a hard time with infusions, and at last infusion they were only able to get half of what patient was supposed to have. Patient reports Dr. Olivera would like to continue with infusions, but they are having a hard time getting the IV in. Please return his call at [phone]. documented in this encounter Plan of Treatment Upcoming Encounters Date Type Specialty Care Team Description 06/19/2022 Office Visit Rheumatology Richi Blackmon MD [facility] DR RHEUMATOLOGY [place], [place] [address] (Wo rk) Scheduled Procedures Name Priority Associated Diagnoses Date/Time EGD, UPPER GI ENDOSCOPY Family hx of colon cance r COLONOSCOPY, DIAGNOSTIC Family hx of colon cance r documented as of this encounter Visit Diagnoses Not on filedocumented in this encounter Care Teams Sanding Machine Operator Relationship Specialty Start Date End Date Jazmine Baer MD PCP - General 11/07/10 [address] [place] [address] documented as of this encounter
--- OUTSIDE RECORDS SUMMARY | 2022-04-11 10:57 | XMS_ITS | Encounter Summary ---
:1960 Author Organization [facility] [place] [address] Care Team Providers Name Role Phone Jazmine Baer MD Primary Care Provider Reason for Visit Reason Onset Date Comments Other 06/27/2012 Encounter Details Date Type Department Care Team Description 06/27/2012 [place]phone [place] [facility] [place] David MD [facility] Hilda shafer [facility] [place] [address] NEUROLOGY DEPT. [phone] [place] [address] (Wo rk) Social History Tobacco Use Types [...] Telephone Encounter - Hilary David MD - 06/30/2012 12:49 PM EST Called Kristin again to inform her Mr. Acevedo will be getting port placed tomorrow. She will fax orders for me to sign for IVIG. Telephone Encounter - Hilary David MD - 06/30/2012 11:36 AM EST Called [facility]- they will keep order open. Called patient as well. Last spoke to him in Apr about having a port placed for IVIG. He had problems with insurance and had to hold off but will be getting port placed tomorrow 07/01. He will call me afterwards to let me know when it is okay to use. Will call [facility] to let them know that we can continue with monthly IVIG infusions. Will also need to schedule f/u appointment. Telephone Encounter - Antonina Reyes - 06/27/2012 2:50 PM EST Kristin from the pharmacy called to ask if they could discharge the home delivery of IVIG medications. They have not administered since December but they wanted to check if it is ok to Discharge the order. Please call. documented in this encounter Plan of Treatment Upcoming Encounters Date Type Specialty Care Team Description 06/19/2022 Office Visit Rheumatology Richi Blackmon MD [facility] DR RHEUMATOLOGY [place], [place] [address] (Wo rk) Scheduled Procedures Name Priority Associated Diagnoses Date/Time EGD, UPPER GI ENDOSCOPY Family hx of colon cance r COLONOSCOPY, DIAGNOSTIC Family hx of colon cance r documented as of this encounter Visit Diagnoses Not on filedocumented in this encounter Care Teams Gas Plant Dispatcher Relationship Specialty Start Date End Date Jazmine Baer MD PCP - General 11/07/10 [address] [place] [address] documented as of this encounter
--- OUTSIDE RECORDS SUMMARY | 2022-04-11 10:57 | XMS_ITS | Encounter Summary ---
:1960 Author Organization [facility] [address] Care Team Providers Name Role Phone Jzamine Baer MD Primary Care Provider Reason for Visit Reason Onset Date Comments Other 01/15/2012 Encounter Details Date Type Department Care Team Description 01/15/2012 Telephone Neurology at [place] Dariel Doty MD [facility] DR Maggy [place] [address] [place] [address] [phone] (Wo rk) Social History Tobacco Use Types [...] encounter Miscellaneous Notes Telephone Encounter - Hilary Doty MD - 01/16/2012 1:13 PM EDT Spoke to Cher at [facility] about SC IVIG. Patient was getting 1 gram/kg over two days IV infusions. Converting dosing to SC comes out to 771 ml. I think this is quite a bit so we will change to 500 mg/kg to be given over 3 days. She will fax me new orders. Telephone Encounter - Marilyn Haddad - 01/15/2012 4:57 PM EDT Cher from [facility] called to follow up with Dr. Doty on this patient. She can be reached at [phone]. Please return her call. HILARY DOTY MD 01/09/12 11:41 AM Signed Spoke to Dr. Marie at [facility] ([phone]) regarding Mr. Acevedo.Would like to continue IVIG infusions for now as he is improving. Mr. Acevedo has been running into trouble over the past few months with IV access for the infusions. Last month he did not receive the full dose due to infiltration and losing his IV. We discussed option of SC injections, which I think is reasonable. Another option would be to put in a port-a-cath but given that we may not continue infusions for much longer I do not think we need this. Spoke to patient about this who is agreeable. Also spoke to Cher at [facility] ([phone]) who sets up infusions. She will look into dosing changes, etc and call me back regarding orders, etc. documented in this encounter Plan of Treatment Upcoming Encounters Date Type Specialty Care Team Description 06/19/2022 Office Visit Rheumatology Richi Blackmon MD [facility] DR RHEUMATOLOGY [place], [place] [address] (Wo rk) Scheduled Procedures Name Priority Associated Diagnoses Date/Time EGD, UPPER GI ENDOSCOPY Family hx of colon cance r COLONOSCOPY, DIAGNOSTIC Family hx of colon cance r documented as of this encounter Visit Diagnoses Not on filedocumented in this encounter Care Teams Pillow Filler Relationship Specialty Start Date End Date Jazmine Baer MD PCP - General 11/07/10 [address] [place] [address] documented as of this encounter
--- OUTSIDE RECORDS SUMMARY | 2022-04-11 10:57 | XMS_ITS | Encounter Summary ---
:1960 Author Organization [facility] [place] [address] Care Team Providers Name Role Phone Jazmine Baer MD Primary Care Provider Encounter Details Date Type Department Care Team Description 03/18/2013 Orders Only [facility] [place] [address] HEMATOLOGY/ONCOLOGY [phone] DEPT. [place], [place] [address] (Wo rk) Social History Tobacco [...] Rheumatology Richi Blackmon MD [facility] RHEUMATOLOGY DEP [place], [place] [address] (Wo rk) Pending Results Name Type Priority Associated Diagnoses Date/Ti ak Film Library- Storage Imaging Routine 2012 8:[address] abdomen & pelvis Scheduled Procedures Name Priority Associated Diagnoses Date/Time EGD, UPPER GI ENDOSCOPY Family hx of colon cance r COLONOSCOPY, DIAGNOSTIC Family hx of colon cance r documented as of this encounter Visit Diagnoses Not on filedocumented in this encounter Care Teams Diver'S Tender Relationship Specialty Start Date End Date Jazmine Baer MD PCP - General 11/07/10 [address] [place] [address] documented as of this encounter
--- OUTSIDE RECORDS SUMMARY | 2022-04-11 10:57 | XMS_ITS | Encounter Summary ---
:1960 Author Organization [facility] [place] [address] Care Team Providers Name Role Phone Jazmine Baer MD Primary Care Provider Reason for Visit Reason Comments Follow-up Encounter Details Date Type Department Care Team Description 06/11/2013 Follow-Up Hematology and Oncology Gertrudis Fuentes Anemia (Primary Dx) at [facility] MD Nikia [facility] [address] Fowler HEMATOLOGY/[place] [address] DEPT. [phone] [place] [address] (Wo rk) Social History Tobacco Use Types [...] Sign Reading Time Taken Comments Blood Pressure 146/68 06/11/2013 11:08 AM EST Pulse 66 06/11/2013 11:08 AM EST Temperature 36.6 ??C (97.9 ??F) 06/11/2013 11:08 AM EST Respiratory Rate 22 06/11/2013 11:08 AM EST Oxygen Saturation 100% 06/11/2013 11:08 AM EST Inhaled Oxygen Concentration - - Weight 114 kg (251 lb 5.2 oz) 06/11/2013 11:08 AM EST Height 171.5 cm (5' 7.52) 06/11/2013 11:08 AM EST Body Mass Index 38.76 06/11/2013 11:08 AM EST documented in this encounter Progress Notes Alem Fuentes MD - 06/13/2013 10:28 PM EST ++++++++++++++++++++++++++++++++++++++++++++++++++++++++++++++++ Attending Addendum: I personally saw, examined and interviewed the patient. I agree with the history, physical, assessment and plan in the note by Dr Fermin of the same date. I have reviewed all pertinent laboratory and radiographic findings. We discussed the patient in detail and formulated the assessment and plan together. We were pleased to tell Mr Acevedo that his anemia work up was negative. No clear signs of any marrow based abnormality. He does have some renal insufficiency (creat = 1.4) and his epo level was slightly low. If his anemia worsened with hgb less than 10 then that would be one thing that would need to b e repeated and he could receive exogenous epo, but not until hgb is regularly under 10 (per insurance guidelines). He can have IVIG but since IVIG can rarely cause renal insuff - his creat should be checked before each dose and the IVIG should be held if worsening renal function is noted. Our only other concern is whether he might have liver insufficiency. He does have SM at 15.5 cm and a slightly enlarged liver as well. This could be due to fatty liver, etc. We will defer further w/u of this to hisPCP. She can work up If she feels it is clinically appropriate. Just to be sure that there have been no changes or that we have not missed anythign - I will plan tosee him once in about 3-6 mos at [facility] for final evaluation. 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 He tells me that these were discovered on labs drawn by his PCP when he presented with the complaint of fatigue and 3x/week epistaxis for the past several months. He had been taking po MTX weekly for his myositis but this was discontinued in 12/2012 and his cytopenias have persisted despite this. Macrocytosis has improved since January. No new symptoms since last visit. Patient Active Problem List Diagnosis ??? Nausea and vomiting ??? Diabetes mellitus type II ??? Myopathy Current Outpatient Prescriptions on File Prior [...] mg by mouth 2 times daily. ??? aspirin 81 mg tablet Take 81 mg by mouth daily. ??? immune globulin,hum,,capr,IGG, (GAMUNEX) 10 % Inj infusion Inject into the vein. Receiving IVIG treatments for 2 consecutive days at the start of each month. BP 146/68 Pulse 66 Temp 36.6 ??C (97.9 ??F) (Oral) Resp 22 Ht 171.5 cm (5' 7.52) Wt 114 kg (251 lb 5.2 oz) BMI 38.76 kg/m2 SpO2 100% General: alert, conversant, NAD HEENT: PERRLA, EOMI, mmm, no oropharyngeal lesions, erythema or exudates, symmetric palate raise Neck: no palpable lymphadenopathy (including axillary lymphadenopathy) CVS: regular S1S2 without MRG Chest: CTAB, no crackles or wheezes Abdomen: soft, NT, ND, BS+, spleen not palpable (but exam limited by habitus) Extremities: no edema Neuro: ambulatory, CN 2-12 grossly intact, moves all 4 extremities Skin: no visible rashes or lesions Pertinent labs since last visit: Epo 6 Iron studies WNL Worsening creatinine No evidence hemolysis GGT suggests elev alk phos is of liver origin Bone marrow biopsy with no leukemia, lymphoma or MDS Abdominal US with hepatosplenomegaly and likely hepatic hemangioma OSH colo with poor prep - planning on repeat with a 2 day prep within 1 year A/P: 53 year old 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 He tells me that these were discovered on labs drawn by his PCP when he presented with the complaint of fatigue and 3x/week epistaxis for the past several months. He had been taking po MTX weekly for his myositis but this was discontinued in 12/2012 and his cytopenias have persisted despite this. Macrocytosis has improved since January. Today we reassured him that there is not a malignant or premalignant primary marrow process going onthat explains his cytopenias, which is good. We suspect that there is sequestering due to his hepatosplenomegaly (chart review reveals negative hepatitis studies in 2009; US does not report fatty liver but was somewhat limited due to body habitus - i suspect that there is some degree of this; his iron studiesdo not suggest hemochromatosis). Also, his epo is low and his renal function is abnormal, likely contributing. He may need epo supplementation at some point and therefore we will follow him for his anemia. We will defer further work up of liver and kidneys to his PCP. He will be scheduled for follow up in [facility] in 4 months (EMB to arrange). documented in this encounter Miscellaneous Notes Addendum Note - Alem Fuentes MD - 06/13/2013 10:37 PM EST Addended by: ALEM FUENTES on: 06/13/2013 10:37 PM Modules accepted: Orders documented in this encounter Plan of Treatment Upcoming Encounters Date Type Specialty Care Team Description 06/19/2022 Office Visit Rheumatology Richi Blackmon MD [facility] ER DR [facility]OLOGY [facility] [place] [address] (Wo rk) Scheduled Procedures Name Priority Associated Diagnoses Date/Time EGD, UPPER GI ENDOSCOPY Family hx of colon cance r COLONOSCOPY, DIAGNOSTIC Family hx of colon cance r documented as of this encounter Procedures Procedure Name Priority Date/Time Associated Comments Diagnosis DIFFERENTIAL, Routine 06/11/2013 12:14 Anemia Results fo r this AUTOMATED PM EST procedure are i n the results section. CBC (WITH DIFF) Routine 06/11/2013 12:14 Anemia Results for this PM EST procedure are i n the results section. LACTATE DEHYDROGENASE Routine 06/11/2013 12:14 Anemia Re sults for this PM EST procedure are i n the results section. HAPTOGLOBIN Routine 06/11/2013 12:14 Anemia Results for this PM EST procedure are i n the results section. CK Routine 06/11/2013 12:14 Anemia Results for this PM EST procedure are i n the results section. COMPREHENSIVE Routine 06/11/2013 12:14 Anemia Results fo r this METABOLIC PANEL PM EST procedure ar e in (NON-FASTING) the results section. documented in this encounter Results (ABNORMAL) CBC (with Diff) (09/29/2013 7:05 PM EDT) [facility] gist Method Time Signature WBC 4.07 EXTERNAL LAB (External Lab) Hemoglobin 8.7 13.5 - EXTERNAL LAB (EXTERNAL/ 17.5 ABN) Hematocrit 27.1 (A) 41.0 - EXTERNAL LAB 53.0 Platelets 153 EXTERNAL LAB (External Lab) Neutr Abs (ANC) 2.05 EXTERNAL LAB (External Lab) Specimen (Source) Anatomical Collection Method Collection Time Re ceived Time Location / / Volume Laterality Blood specimen 09/29/2013 7:05 PM (specimen) EDT Alem Fuentes MD HEMATOLOGY ORDERABLES Performing Organization Address City/State/ZIP Code Phon e Number EXTERNAL FACILITY EXTERNAL LAB Differential, Automated (06/11/2013 12:14 PM EST) P athologist Signature Neutrophils % 60.8 34.0 - [facility] 71.0 % [facility] Neutr Abs (ANC) 3.28 1.50 - [facility] 6.30 [place] x10(3)/mcL Lymphocytes % 27.1 19.0 - [facility] 53.0 % [facility] Lymphocytes Abs 1.5 1.0 - 3.6 [facility] x10(3)/mcL [facility] Monocytes % 9.5 4.0 - 13.0 [place] % [facility] Monocyte Abs 0.5 0.2 - 1.0 [facility] x10(3)/mcL [facility] Eosinophils % 1.7 0.0 - 7.0 [place] % [facility] Eosinophils Abs 0.1 0.0 - 0.5 [facility] x10(3)/mcL [facility] Basophils % 0.7 0.0 - 2.0 [place] % [facility] Basophils Abs 0.0 0.0 - 0.2 [facility] x10(3)/mcL [facility] Immature Gran % 0.20 0.00 - [facility] [...] Location / / Volume Laterality Blood specimen 06/11/2013 12:14 4 (specimen) PM EST 12:20 PM EST Alem Fuentes MD HEMATOLOGY ORDERABLES Performing Organization Address City/State/[place] [address] [facility] (ABNORMAL) CK (06/11/2013 12:14 PM EST) athologist Signature CK, Total 452 (H) 0 - 200 [facility] unit/L [facility] Specimen Anatomical Collection Method Collection Time Receive d Time (Source) Location / / Volume Laterality Blood specimen 06/11/2013 12:14 4 (specimen) PM EST 12:20 PM EST Resulting Agency Comment Spec In Lab Alem Fuentes MD CHEMISTRY ORDERABLES Performing Organization Address City/State/ZIP Code Phon e Number [address] [place] [facility] Haptoglobin (06/11/2013 12:14 PM EST) athologist [facility] Haptoglobin 79 30 - 200 [facility] mg/dL [facility] Comment: Haptoglobin concentrations in newborns i s low to undetectable; however, adult concentrations are usually attained by 4 months of age. ??No sex-related differences for haptoglobin have been de tected. Specimen Anatomical Collection Method Collection Time Receive d Time (Source) Location / / Volume Laterality Blood specimen 06/11/2013 12:14 4 (specimen) PM EST 12:20 PM EST Resulting Agency Comment Spec In Lab Alem Fuentes MD CHEMISTRY ORDERABLES Performing Organization Address City/[facility] [address]/ZIP Code Phon e Number [address] [place] MILLENNIUM Lactate Dehydrogenase (06/11/2013 12:14 PM EST) athologist [facility] LDH Not Perf 110 - 220 C[facility]ER unit/L [facility] Comment: Unable to quantitate due to yennifer ple hemolysis. Sample redraw suggested. Specimen Anatomical Collection Method Collection Time Receive d Time (Source) Location / / Volume Laterality Blood specimen 06/11/2013 12:14 4 (specimen) PM EST 12:20 PM EST Resulting Agency Comment Spec In Lab Alem Fuentes MD CHEMISTRY ORDERABLES Performing Organization Address City/State/[place] [address] [facility] MILLENNIUM (ABNORMAL) Comprehensive metabolic panel (non-fasting) (06/11/2013 12:14 PM EST) athologist Signature Glucose Lvl 495 (H) 60 - 199 [facility] mg/dL [facility] Comment: Diabetes: >=200 mg/dL plus symp toms BUN 13 10 - 20 mg/dL [facility] MILLENNIU M Creatinine 1.52 (H) 0.80 - 1.50 mg/dL [facility] MILL ENNIUM Comment: Please note that the pediatric reference intervals supplied above were not validated at [facility]. Results from pediatri c patients should be [...] Chloride 96 (L) 98 - 107 mmol/L C[facility]ER MILLENN IUM CO2 21 (L) 22 - 31 mmol/L C[facility]ER MILLENNI UM Anion Gap 14 5 - 15 mmol/L C[facility]ER MILLENNIU M Calcium 9.1 8.5 - 10.5 mg/dL [facility] ELISE NIUM Total Protein 8.0 6.4 - 8.3 gm/dL C[facility]ER MIL LENNIUM Albumin 3.2 3.2 - 5.2 gm/dL CERNER MILLENN IUM AST Not Perf 0 - 39 unit/L CERNER MILLENNIU M Comment: Unable to quantitate due to yennifer ple hemolysis. Sample redraw suggested. ALT 25 0 - 55 unit/L C[facility]ER MILLENNIU M Alk Phos 146 (H) 40 - 120 unit/L CERNER MILLENN IUM Total Bilirubin 0.6 0.2 - 1.3 mg/dL C[facility]ER M ILLENNIUM Bili, Direct 0.2 0.0 - 0.3 mg/dL C[facility] MILL ENNIUM Estimated GFR 48 (L) >=60 CERNER MILLENNIU M Comment: This [...] Location / / Volume Laterality Blood specimen 06/11/2013 12:14 4 (specimen) PM EST 12:20 PM EST Resulting Agency Comment Spec In Lab Alem Fuentes MD CHEMISTRY ORDERABLES Performing Organization Address City/State/[place] [address] CERNER MILLENNIUM (ABNORMAL) CBC (with Diff) (06/11/2013 12:14 PM EST) P athologist Signature WBC 5.4 4.0 - 10.0 C[facility]ER x10(3)/mcL [facility] RBC 3.62 (L) 4.63 - CERNER 6.08 MILLENNIUM x10(6)/mcL Hemoglobin 11.3 (L) 13.7 - CERNER 17.5 gm/dL [facility] Hematocrit 33.8 (L) 40.0 - CERNER 51.0 % MILLENNIUM MCV 93.4 (H) 79.0 - CERNER 92.0 fL MILLENNIUM MCH 31.2 25.6 - CERNER 32.2 pg MILLENNIUM MCHC 33.4 32.0 - CERNER 36.5 gm/dL MILLENNIUM Platelets 80 (L) 145 - 370 CERNER x10(3)/mcL MILLENNIUM RDWSD 46.9 (H) 35.0 - CERNER 46.0 fL MILLENNIUM RDWCV 13.7 10.9 - CERNER 14.4 % MILLENNIUM MPV 12.4 (H) 9.0 - 12.0 CERNER fL M[facility]ENNIUM Specimen Anatomical Collection Method Collection Time Receive d Time (Source) Location / / Volume Laterality Blood specimen 06/11/2013 12:14 4 (specimen) PM EST 12:20 PM EST Resulting Agency Comment Spec In Lab Alem Fuentes MD HEMATOLOGY ORDERABLES Performing Organization Address City/State/[place] [address] [facility] documented in this encounter Visit Diagnoses Diagnosis Anemia - Primary Anemia, unspecified documented in this encounter Care Teams Dialysis Nurse Relationship Specialty Start Date End Date Jazmine Baer MD PCP - General 11/07/10 [address] [place] [address] documented as of this encounter
--- OUTSIDE RECORDS SUMMARY | 2022-04-11 10:57 | XMS_ITS | Encounter Summary ---
:1960 Author Organization [facility] [place] [address] Care Team Providers Name Role Phone Jazmine Baer MD Primary Care Provider Encounter Details Date Type Department Care Team Description 05/13/2013 Hospital Encounter XRay at [facility], DR PEÑALOZA Nausea and vomiting 1 [facility] Bethanie Maldonado, NURSE [facility] [place] [address] [place] [id number] Social History Tobacco Use Types Packs/Day Years [...] Take 1 capsule by 60 capsule 3 09/201206/18/2013 mg capsule mouth 2 times daily. ondansetron [...] Miscellaneous Notes Miscellaneous - Provider, Scanning - 05/15/2013 2:28 PM EST documented in this encounter Plan of Treatment Upcoming Encounters Date Type Specialty Care Team Description 06/19/2022 Office Visit Rheumatology Richi Blackmon MD [facility] DR RHEUMATOLOGY [place], [place] [address] (Wo rk) Scheduled Procedures Name Priority Associated Diagnoses Date/Time EGD, UPPER GI ENDOSCOPY Family hx of colon cance r COLONOSCOPY, DIAGNOSTIC Family hx of colon cance r documented as of this encounter Procedures Procedure Name Priority Date/Time Associated Diagnosis Comme nts XR FLUORO SMALL Routine 05/13/2013 10:54 AM Nausea and vomitin g Results for this BOWEL ONLY EST procedure are i n the results section. documented in this encounter Results XR Fluoro small bowel only (05/13/2013 10:54 AM EST) Anatomical Region Laterality Modality Abdomen N/A Radiographic Imaging Specimen (Source) Anatomical Collection Method Collection Time Re ceived Time Location / / Volume Laterality 05/13/2013 10:54 AM EST Narrative 05/13/2013 12:29 PM EST Examination SMALL BOWEL ONLY Clinical History N/V, R/o inflammation, stricture, narrow ing, mass Comparison None. Technique The standard small bowel follow through was performed with overhead and fluoroscopic Linus guided images and fluor oscopic observation following the oral administration of barium. Findings Preliminary plate and frame filter operator view of the abdomen re veals a normal bowel gas pattern. The small bowel is normal in caliber. There is no evidence of mucosal fold thickening, stricture, nodularity or di dence of bowel wall thickening. ??Small bowel transit time is normal. Impression Normal small bowel follow-through. Procedure Note Bucky Stearns MD - 05/13/2013Format ting of this note might be different from the original. Examination SMALL BOWEL ONLY Clinical History N/V, R/o inflammation, stricture, narrow ing, mass Comparison None. Technique The standard small bowel follow through was performed with overhead and fluoroscopic Linus guided images and fluor oscopic observation following the oral administration of barium. Findings Preliminary plate and frame filter operator view of the abdomen re veals a normal bowel gas pattern. The small bowel is normal in caliber. There is no evidence of mucosal fold thickening, stricture, nodularity or di dence of bowel wall thickening. Small bowel transit time is normal. Impression Normal small bowel follow-through. Brian Brunson MD IMG FLUORO ORDERABLES documented in this encounter Visit Diagnoses Diagnosis Nausea and vomiting Nausea with vomiting documented in this encounter Administered Medications Inactive Administered Medications - up to 3 most recent administrations Medication Order MAR Action Action Date Dose Rate Site barium sulfate (EZPAQUE) oral Given 05/13/2013 9:30 AM EST 530 m Ls suspension 530 mL 530 mL, Oral, ONCE, 1 dose, On Sat05/13/13 at 1115, Routine documented in this encounter Care Teams Leaf Sorter Relationship Specialty Start Date End Date Jazmine Baer MD PCP - General 11/07/10 [address] [place] [address] documented as of this encounter
--- OUTSIDE RECORDS SUMMARY | 2022-04-11 10:57 | XMS_ITS | Encounter Summary ---
:1960 Author Organization [facility] [place] [address] Care Team Providers Name Role Phone Jazmine Baer MD Primary Care Provider Reason for Visit Reason Onset Date Comments Other 01/09/2012 Encounter Details Date Type Department Care Team Description 01/09/2012 Telephone Neurology at [facility] Hilary David MD [facility] Hilda shafer [facility] [address] NEUROLOGY DEPT. [phone] [place] [id number] (Wo rk) Social History Tobacco Use Types [...] Telephone Encounter - Hilary David MD - 01/09/2012 11:41 AM EDT Spoke to Dr. Marie at [facility] ([phone]) regarding Mr. Acevedo.Would like to continue IVIG [...] is agreeable. Also spoke to Cher at [facility] ([phone]) who sets up infusions. She will look into dosing changes, etc and call me back regarding orders, etc. documented in this encounter Plan of Treatment Upcoming Encounters Date Type Specialty Care Team Description 06/19/2022 Office Visit Rheumatology Richi Blackmon MD [facility] ER DR RHEUMATOLOGY [place], [place] [address] (Wo rk) Scheduled Procedures Name Priority Associated Diagnoses Date/Time EGD, UPPER GI ENDOSCOPY Family hx of colon cance r COLONOSCOPY, DIAGNOSTIC Family hx of colon cance r documented as of this encounter Visit Diagnoses Not on filedocumented in this encounter Care Teams Foil Operator Relationship Specialty Start Date End Date Jazmine Baer MD PCP - General 11/07/10 [address] [place] [address] documented as of this encounter
--- OUTSIDE RECORDS SUMMARY | 2022-04-11 10:57 | XMS_ITS | Encounter Summary ---
:1960 Author Organization [facility] [place] [address] Care Team Providers Name Role Phone Jazmine Baer MD Primary Care Provider Reason for Visit Reason Comments Follow-up Encounter Details Date Type Department Care Team Description 06/18/2013 Follow-Up Gastroenterology at [facility] Bethanie Gorman Durand's esophagus (Primary Dx); [facility] Hilda Arboleda APRN Screening for colon cancer; [place] [address] [facility]; [phone] CENTER Abnormal US (ultrasound) of abdomen; [place], [place] Nausea and vomi ting; [address] Hepatosplenomegaly Social History Tobacco Use Types Packs/Day Years [...] Sign Reading Time Taken Comments Blood Pressure 132/69 06/18/2013 2:40 PM EST Pulse 62 06/18/2013 2:40 PM EST Temperature - - Respiratory Rate - - Oxygen Saturation - - Inhaled Oxygen Concentration - - Weight 114.3 kg (252 lb) 06/18/2013 2:40 PM EST Height 170.2 cm (5' 7) 06/18/2013 2:40 PM EST Body Mass Index 39.47 06/18/2013 2:40 PM EST documented in this encounter Patient Instructions Patient InstructionsBethanie Gorman APRN - 06/18/2013 3:46 PM EST 1. MRI abdomen to evaluate your liver and spleen 2. Repeat upper endoscopy and colonoscopy with biopsies 3. Referral to liver group (summer law clerk) 4. Before MRI: take Valium 5 mg one hour before test; can repeat upon arrival at [facility] 5. Prilosec 40 mg daily on an empty stomach 30 minutes before breakfast 6. Zofran 4 mg every 8 hours needed 7. Tigan 300 mg every 8 hours as needed 8. Will call with results of testing 9. Follow up 2-3 months Bethanie Gorman APRN [phone] documented in this encounter Progress Notes Bethanie Gorman APRN - 06/18/2013 2:34 PM EST Subjective: Patient ID: Bucky Acevedo [...] anemic and is scheduled to see the flat clothier. Denies heartburn, regurgitation, acid taste, chest pain, ENT concerns, dysphagia, early satiety, post prandial fullness, gas, bloating, distended, abdominal pain or cramping. Interval Hx 06/18/2013: Mr. Acevedo is a pleasant 53 year old man who presents for follow up of his N/V. He is accompanied by his . He reports that nausea occurs 1-2 times per week and unpredictable. No vomiting since GI visit in March. Taking Tigan qd-BID as a preventative. Uses Zofran 1- 2 times per week with relief. No nocturnal symptoms. Appetite fair. No early satiety or post prandial fullness. No indigestion, abdominal painor cramping. He reports having a formed bowel [...] GGT 124. Iron studies wnl. Refer to ed. Weight stable. Remainder of ROS unremarkable. Recent tests: *SBFT 05/13/2013: Preliminary industrial locomotive operator view of the abdomen reveals a normal [...] duodenum normal. Review of Systems Constitutional: Negative. HENT: Negative. Respiratory: Negative. Cardiovascular: Negative. Gastrointestinal: See HPI Neurological: Negative. Psychiatric/Behavioral: Negative. Allergies Allergen Reactions ??? Ishrhrx-Hmq-Gey Reductase Inhibitors Myopathy Current Outpatient Prescriptions on [...] 100 mg by mouth 2 times daily. Past Medical History Diagnosis Date ??? Diabetes ??? Hypertension ??? Hyperlipidemia ??? Gout ??? Obesity ??? Kidney stone ??? 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 Shingles ??? DM II (diabetes mellitus, type II), controlled Past Surgical History Procedure Date ??? Abdominal hernia repair ??? Ureter stent placement renal stent ??? Tunneled venous port placement Jun 2012 ??? Tunneled venous port placement ??? Bone marrow aspiration w/bx through same incision/site 05/28/2013 ([facility]) BONE MARROW ASP PERFORMED W/BX THRU BX INCISION performed by Alem Evangelista MD at [facility] ??? Bone marrow bx, needle/trocar 05/28/2013 ([facility]) BONE MARROW,BIOPSY performed by Aelm Evangelista MD at [facility] History Social History ??? Marital Status: Spouse Name: N/A Number of Children: 4 ??? Years of Education: N/A Occupational History ??? Not on file. Social History Main Topics ??? Smoking status: Never Smoker ??? Smokeless tobacco: Never Used ??? Alcohol Use: 0.0 oz/week Comment: Occasional ??? Drug Use: No ??? Sexually Active: Not on file Comment: Deferred Other Topics Concern ??? 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 Constitutional: He is oriented to person, place, and time. He appears well- developed and well-nourished. No distress. Neurological: He is alert and oriented to person, place, and time. Skin: He is not diaphoretic. Psychiatric: He has a normal mood and affect. His behavior is normal. Judgment and thought content normal. Assessment and Plan: Mr. Acevedo is a pleasant 53 year old man who presents for follow up of his nausea and vomiting. Symptoms are controlled with Tigan BID and Zofran prn. His work up to date revealed a normal GES (22% at2 hrs (normal <60% and 1% at 4 hrs (normal < 10%) and normal SBFT. Reviewed his EGD that was obtained after GI consult that revealed a short segment BE, gastritis and duodenitis. US abd revealed cholelithiasis and small amount of sludge/gravel. The etiology of N/V unclear given normal GES and SBFT. Question role of gallbladder given recent findings on US and consider referral to surgeon for consultation for question of gallbladder disease. Also question role of gastritis/duodenitis found on pre vious EGD. Recommend repeating EGD to ensure that gastritis/duodenitis has resolved with daily use of PPI and evaluate Durand' esophagus. #Hepatosplenomegaly: question HORTON/cirrhosis given mild hepatosplenomegaly noted on abd US, ALP 146 (was 126 on ), GGT 124, decreased platelet count 80 but normal AST 30/ALT 23. Mr. Acevedo is at risk for HORTON given BMI 39.46, DM II and HLD. No h/o alcohol abuse. There is also a question of hemangioma given indeterminate slightly hyperechoic subcapsular 1.7 cm lesion on ultrasound. We discussed proceeding with further imaging and recommend MRI abdomen to evaluate the indeterminate slightly hyperechoic subcapsular 1.7 cm lesion noted on liver and hepatosplenomegaly. Recommend referral to hepatology for consultation. He is amenable to plan. #Durand's esophagus: recommend repeating EGD to evaluate BE and ensure that gastritis/duodenitis has healed with daily PPI use. We discussed the etiology, pathophysiology and treatment of BE. Recommend that he continue Prilosec 40 mg qd and GERD diet/lifestyle modifications. #Anemia: recently evaluated by hematology and refer to notes in edh. Bone marrow showed no leukemia,lymphoma or MDS. Iron studies wnl. The sequestering most likely due to hepatosplenomegaly. Defer further management of anemia to hematology. #Elevated creatinine: defer work up to PCP #Colon cancer screening: poor prep per report. Discussed repeating the colonoscopy in light of poor prep. Order placed. I did my best to answer all of his questions. The following plan was formulated. Plan: 1. MRI abdomen 2. Repeat upper endoscopy for hx Durand's esophagus 3. Colonoscopy secondary to poor prep. 4. Referral to [facility] hepatology for consultation of HORTON/cirrhosis 5. Instructed patient to take Valium 5 mg 1 hr before MRI; may repeat upon arrival 6. Prilosec 40 mg daily on an empty stomach 30 minutes before breakfast 7. Zofran 4 mg TID prn 8. Tigan 300 mg TID prn 9. Consider referral to either Dr. Dos Santos or Dr. Schmidt for consultation of possible cholecystectomy. 10. Will call with results of testing 11. Follow up 2-3 months Patient understands and is agreeable to the above plan. Written instructions provided. Bethanie Gorman APRN Section of Gastroenterology [place] [address] documented in this encounter Plan of Treatment Upcoming Encounters Date Type Specialty Care Team Description 06/19/2022 Office Visit Rheumatology Richi Blackmon MD [facility] DR RHEUMATOLOGY [place], [place] [address] (Wo rk) Scheduled Orders Name Type Priority Associated Diagnoses Order S chedule UPPER GI ENDOSCOPY Procedures Routine Durand's esophagus Or dered: 06/18/2013 Scheduled Procedures Name Priority Associated Diagnoses Date/Time EGD, UPPER GI ENDOSCOPY Family hx of colon cance r COLONOSCOPY, DIAGNOSTIC Family hx of colon cance r documented as of this encounter Results (ABNORMAL) MRI abdomen with/WO [...] this encounter Visit Diagnoses Diagnosis Durand's esophagus - Primary Screening for colon cancer Special screening for malignant neoplasm s, colon Anemia Anemia, unspecified Abnormal US (ultrasound) of abdomen Nonspecific (abnormal) findings on radio logical and other examination of abdominal area, including retroperitoneum Nausea and vomiting Nausea with vomiting Hepatosplenomegaly Other chronic nonalcoholic liver disease Abnormal US (ultrasound) of abdomen Nonspecific (abnormal) findings on radio logical and other examination of abdominal area, including retroperitoneum documented in this encounter Care Teams Psychiatric Rn Relationship Specialty Start Date End Date Jazmine Baer MD PCP - General 11/07/10 [address] [place] [address] documented as of this encounter
--- OUTSIDE RECORDS SUMMARY | 2022-04-11 10:57 | XMS_ITS | Encounter Summary ---
:1960 Author Organization [facility] [place] [address] Care Team Providers Name Role Phone Jazmine Baer MD Primary Care Provider Encounter Details Date Type Department Care Team Description 02/05/2013 Telephone Neurology at [facility] Ruperto Mcclellan MD [facility] [place] [address] NEUROLOGY DEPT [phone] [place] [id number] (Wo rk) Social History Tobacco Use Types [...] Encounter - Ruperto Mcclellan MD - 02/05/2013 3:38 PM EDT Reviewed the CBC result. In light of decreased Hb and Plt values (more markedly platelet), I have placed a call to Dr. Marie's office to review patient's recent labs. The last lab values on [facility] system is from 2010. I would like to determine how significant the drop in the above values are since patient is on methotrexate and IVIG treatment. Left a message for Dr. Marie requesting a call back to discuss. documented in this encounter Plan of Treatment Upcoming Encounters Date Type Specialty Care Team Description 06/19/2022 Office Visit Rheumatology Richi Blackmon MD [facility] ER DR RHEUMATOLOGY [place], [place] [address] (Wo rk) Scheduled Procedures Name Priority Associated Diagnoses Date/Time EGD, UPPER GI ENDOSCOPY Family hx of colon cance r COLONOSCOPY, DIAGNOSTIC Family hx of colon cance r documented as of this encounter Visit Diagnoses Not on filedocumented in this encounter Care Teams Functional Tester Relationship Specialty Start Date End Date Jazmine Baer MD PCP - General 11/07/10 [address] [place] [address] documented as of this encounter
--- OUTSIDE RECORDS SUMMARY | 2022-04-11 10:57 | XMS_ITS | Encounter Summary ---
:1960 Author Organization [facility] [place] [address] Care Team Providers Name Role Phone Jazmine Baer MD Primary Care Provider Encounter Details Date Type Department Care Team Description 04/15/2013 Hospital Encounter Nuclear Medicine at [facility] Nausea and vomiting Brian Mcrae MD [facility] [place] [address] [place] [id number] Social History Tobacco Use Types Packs/Day Years [...] Dispensed Refills Start Date End Date ondansetron (ZOFRAN) 4 Take 4 mg by mouth 0 06/18/2013 mg tablet as needed. trimethobenzamide Take 1 capsule by 120 capsule 12 04/02/2013 06/18/2013 (TIGAN) 300 mg mouth 4 times daily. capsuleIndications: Nausea and vomiting omeprazole (PRILOSEC) 20 Take 40 mg by mouth 0 05/13/2013 mg capsule daily. INSULIN LISPRO (HUMALOG Inject 12 Units 0 [...] [facility] ER DR RHEUMATOLOGY [place], [place] [address] (Wo rk) Scheduled Procedures Name Priority Associated Diagnoses Date/Time EGD, UPPER GI ENDOSCOPY Family hx of colon cance r COLONOSCOPY, DIAGNOSTIC Family hx of colon cance r documented as of this encounter Procedures Procedure Name Priority Date/Time Associated Diagnosis Comme nts NM GASTRIC EMPTYING Routine 04/15/2013 12:47 PM Nausea and vom iting Results for this SCAN EST procedure are i n the results section. documented in this encounter Results NM gastric emptying scan (04/15/2013 12:47 PM EST) Anatomical Region Laterality Modality Other Specimen (Source) Anatomical Collection Method Collection Time Re ceived Time Location / / Volume Laterality 04/15/2013 12:47 PM EST Narrative 04/15/2013 2:15 PM EST Examination GASTRIC EMPTYING SCAN Clinical History N/V, decrease appetite, DM II, HbA1C 10. 2, ?gastroparesis Comparison None Technique A standard meal was labeled with 0.5 mCi of technetium-99m sulfur colloid and ingested. Images of the stomach were obt ained in the anterior and posterior projections immediately thereafter and o ne, two and four hours later. Findings Activity fills the stomach in the initia l image. Small bowel is visible at one hour. There is minimal activity present in the stomach at four hours. Quantitative Analysis Two hours: 22% remains in the stomach (n ormal <60%) Four hours: 1% remains in the stomach (n ormal <10%) Impression Normal gastric emptying. Procedure Note Oleg Parker MD - 04/15/2013Formatti ng of this note might be different from the original. Examination GASTRIC EMPTYING SCAN Clinical History N/V, decrease appetite, DM II, HbA1C 10. 2, ?gastroparesis Comparison None Technique A standard meal was labeled with 0.5 mCi of technetium-99m sulfur colloid and ingested. Images of the stomach were obt ained in the anterior and posterior projections immediately thereafter and o ne, two and four hours later. Findings Activity fills the stomach in the initia l image. Small bowel is visible at one hour. There is minimal activity present in the stomach at four hours. Quantitative Analysis Two hours: 22% remains in the stomach (n ormal <60%) Four hours: 1% remains in the stomach (n ormal <10%) Impression Normal gastric emptying. Brian Brunson MD IM NM ORDERABLES documented in this encounter Visit Diagnoses Diagnosis Nausea and vomiting Nausea with vomiting documented in this encounter Care Teams Field Advisor Relationship Specialty Start Date End Date Jazmine Baer MD PCP - General 11/07/10 [address] [place] [address] documented as of this encounter
--- OUTSIDE RECORDS SUMMARY | 2022-04-11 10:57 | XMS_ITS | Encounter Summary ---
:1960 Author Organization [facility] [place] [address] Care Team Providers Name Role Phone Jazmine Baer MD Primary Care Provider Reason for Visit Reason Onset Date Comments Other 03/18/2012 Encounter Details Date Type Department Care Team Description 03/18/2012 Telephone Neurology at [facility] Hilary David MD [facility] Hilda shafer [facility] [address] NEUROLOGY DEPT. [phone] [place] [id number] (Wo rk) Social History Tobacco Use Types [...] Telephone Encounter - Hilary David MD - 03/18/2012 2:39 PM EDT Called Kristin back. There are problems with his dosing, coverage, etc. i will need to call patientfirst to figure out treatment plan and called her back. Telephone Encounter - Marilyn Haddad - 03/18/2012 10:21 AM EDT Kristin, from [place], called to speak with Dr. David regarding patient's IVIG. Please return her callat [phone]. documented in this encounter Plan of Treatment Upcoming Encounters Date Type Specialty Care Team Description 06/19/2022 Office Visit Rheumatology Rcihi Blackmon MD [facility] DR RHEUMATOLOGY [place], [place] [address] (Wo rk) Scheduled Procedures Name Priority Associated Diagnoses Date/Time EGD, UPPER GI ENDOSCOPY Family hx of colon cance r COLONOSCOPY, DIAGNOSTIC Family hx of colon cance r documented as of this encounter Visit Diagnoses Not on filedocumented in this encounter Care Teams Mailroom Supervisor Relationship Specialty Start Date End Date Jazmine Baer MD PCP - General 11/07/10 [address] [place] [address] documented as of this encounter
--- OUTSIDE RECORDS SUMMARY | 2022-04-11 10:57 | XMS_ITS | Encounter Summary ---
:1960 Author Organization [facility] [address] Care Team Providers Name Role Phone Jazmine Baer MD Primary Care Provider Reason for Visit Reason Onset Date Comments Prior Authorization 05/20/2013 Omeprazole Encounter Details Date Type Department Care Team Description 05/20/2013 Telephone Gastroenterology at [facility] [place] [place] Cici Grimaldo, Prior Authorization [facility] Hilda shafer RN (Omeprazole) [place] [address] Social History Tobacco Use Types Packs/Day [...] encounter Miscellaneous Notes Telephone Encounter - Cici Grimaldo RMA - 05/20/2013 4:44 PM EST Medication: Omeprazole Dosage: 40 mg Frequency & Route: BID Insurance & Phone #: [place] Medicaid [phone] ID #: [id number] Trialed (dosage, frequency): omeprazole QD Note: [place] approved- pharmacy informed. documented in this encounter Plan of Treatment Upcoming Encounters Date Type Specialty Care Team Description 06/19/2022 Office Visit Rheumatology Richi Blackmon MD [facility] ER RHEUMATOLOGY [place], [place] [address] (Wo rk) Scheduled Procedures Name Priority Associated Diagnoses Date/Time EGD, UPPER GI ENDOSCOPY Family hx of colon cance r COLONOSCOPY, DIAGNOSTIC Family hx of colon cance r documented as of this encounter Visit Diagnoses Not on filedocumented in this encounter Care Teams Artificial Insemination Technician Relationship Specialty Start Date End Date Jazmine Baer MD PCP - General 11/07/10 [address] [place] [address] documented as of this encounter
--- OUTSIDE RECORDS SUMMARY | 2022-04-11 10:57 | XMS_ITS | Encounter Summary ---
:1960 Author Organization [place] [address] Care Team Providers Name Role Phone Jazmine Baer MD Primary Care Provider Reason for Visit Reason Comments Follow-up Encounter Details Date Type Department Care Team Description 07/07/2012 [place] [facility] [place], Necrotizing myopathy [facility] (Primary Dx) [place] [address] NEUROLOGY DEPT. [phone] [place], [place] [address] Social History Tobacco Use Types Packs/Day Years Used Date Never Smoker Smokeless Tobacco: Never Used Alcohol Use Standard Drinks/Week Comments Yes 0 (1 standard drink = 0.6 oz pure alcoho l) occasionally Alcohol Habits Answer Date Recorded How often do you have a drink containing alcohol? Not asked How many drinks containing alcohol do you have on a Not aske d typical day when you are drinking? How often do you have six or more drinks on one occasion? No t asked Comment: occasionally 07/07/2012 Sex Assigned at Date Recorded Not on file documented as of this encounter Last Filed Vital Signs Vital Sign Reading Time Taken Comments Blood Pressure 104/72 07/07/2012 2:42 PM EST Pulse 75 07/07/2012 2:42 PM EST Temperature - - Respiratory Rate - - Oxygen Saturation - - Inhaled Oxygen Concentration - - Weight 113.4 kg (250 lb) 07/07/2012 2:42 PM EST Height 174 cm (5' 8.5) 07/07/2012 2:42 PM EST Body Mass Index 37.46 07/07/2012 2:42 PM EST documented in this encounter Progress Notes Hilary David MD - 07/07/2012 3:24 PM EST NEUROLOGY CLINIC [facility] [place] [address] Facsimile: Neurology Clinic Follow-up: 07/07/2012 Patient name: Bucky Acevedo Date of : 1960 CC: Follow-up Patient ID: This is a 52 y.o. male with a diagnosis of immune-mediated necrotizing myopathy. He is usually followed by Dr. Bucky Marie at [facility]. Mr. Acevedo first came to the attention of the neurology department in Jun 2009 with progressive muscle weakness and was found to have myopathy with elevated CK in the 5000s. He had been on Lipitor forabout nine years, he stated he was on 100 mg. A muscle biopsy was performed which revealed myopathy but no clear etiology was determined. He was then followed by Dr. Marie in [facility] and his pathologyslides where review by a Dr. Ricardo on [place]. He felt that the slides were consistent with necrotizing myopathy. A paraneoplastic work-up was recommended, which he did have at the time of presentation [place] [facility] and it was negative. He was on prednisone for a time. He continues on MTX and monthly IVIg infusions. IVIg seems to be the only effective treatment for him, with CK levels decreasing. Workup: TPMT enzyme activity 08/2009 normal Myositis Antibody Panel Plus 06/2009 negative (anti-Kiesha, PM/SCL, GA-2, PL-7, PL- 12, EJ, OJ KU, U2 SN EHS ENGINEER, SRP) mitochondrial mutations: Absence of all screened point mtDNA mutations and deletions associated with neuromuscular disorders. Subjective: CK last month was 1200. Unfortunately, his last full dose of IVIG was October 2011, with half doses up to December. He was having trouble with access, insurance coverage. We arranged for placement of a port of monthly IVIG infusions,which was done last week. He will be getting infusion soon. He does feel he is getting weaker and has fallen. If he is down on the floor he has trouble getting up. Getting tried after walking. Continues to have back pain. No muscle cramps or leg pains. He notices fatigue in the arms when carrying things. Has trouble climbing stairs, getting out of bed, or a chair. Past Medical History Diagnosis Date ??? Diabetes ??? Hypertension ??? Hyperlipidemia ??? Gout ??? Obesity ??? Kidney stone ??? 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 Shingles No new medical problems since last being seen Meds: Outpatient Encounter Prescriptions as of 07/07/2012 Medication Sig Dispense Refill ??? INSULIN LISPRO (HUMALOG SUBQ) Inject 18 Units subcutaneously 3 times daily (with meals). ??? aspirin 81 mg tablet Take 81 mg by mouth daily. ??? insulin glargine (LANTUS) 100 unit/mL vial injection Inject 55 Units subcutaneously nightly. ??? lisinopril-hydrochlorothiazide (PRINZIDE;ZESTORETIC) 20-12.5 mg per tablet Take 2 tablets by mouth daily. ??? metFORMIN (GLUCOPHAGE) 500 mg tablet Take 500 mg by mouth 2 times daily (with meals). ??? atenolol (TENORMIN) 100 mg tablet Take 100 mg by mouth daily. ??? folic acid (FOLVITE) 1 mg tablet Take 1 mg by mouth daily. ??? methotrexate 2.5 mg tablet Take 15 mg by mouth once a week. ??? traMADol (ULTRAM) 50 mg tablet Take 100 mg by mouth 2 times daily. ??? immune globulin,hum,,capr,IGG, (GAMUNEX) 10 % Inj infusion Inject into the vein. Receiving IVIG treatments for 2 consecutive days at the start of each month. ??? DISCONTD: ibuprofen (ADVIL;MOTRIN) 200 mg tablet Take 400 mg by mouth every 6 hours as needed. Family History Problem Relation Age of Onset ??? Colon Cancer Mother ??? Diabetes Mother ??? Heart Attack Father first GA at 36 ??? Coronary Art Dis Father ??? Diabetes Sister ??? Stomach Cancer uncle Social: Not working anymore Review of systems: Constitutional: No fevers or chills Eyes: No vision changes, no diplopia, no blurry vision ENMT: No rhinorrhea or pharyngitis, no meningismus CV: No chest pain or palpitations Resp: No cough, no shortness of breath GI: No nausea, vomiting, diarrhea or constipation : No dysuria, no incontinence Musculoskeletal:+ weakness Heme: No bleeding or bruising Neuro: See HPI Psych: No depression, normal sleep [x] Review of systems otherwise negative Objective: Vitals: Temp: -- Heart Rate: [75] Resp: -- BP: (104)/(72) SpO2: -- Constitutional: Patient of apparent stated age, well nourished, well developed, no acute distress HEENT: no conjunctival injection, oral mucosa moist CV: RRR Musculoskeletal: Normal bulk and tone. 5/5 strength in bilateral upper extremities 3-4/5 strength proximal lower extremities 5/5 distal LE extremities 4/5 knee flexion left leg Neuro: Mental status: Alert, oriented to person, place, month, year, clear language, recalls 3/3 objects, naming and repetition intact, can state months of the years backwards and calculate serial 7s without difficulty CN: normal fundoscopic exam, PERRL, EOMI, visual cano full, trigeminal sensation intact, no facialasymmetry, hearing intact to whisper, no dysarthria, palate elevates symmetrically, tongue protrudesmidline, SCM and trap strength intact Motor: 5/5 strength in bilateral upper and lower extremities, no pronator drift Reflexes: 1+ DTRs Gait: waddling gait Labs: Diagnostic Tests and Images: Assessment: Bucky Acevedo is a 52 y.o. male with necrotizing myopathy of unclear etiology previously treated with steroids and now on Monthly IVIG and MTX. Etiology remains unclear, as paraneoplastic panel and mitochondrial mutations have not been found. Doing poorly since monthly IVIG treatment were halted but will be re-initiating again shortly. Plan: Re-initiating monthly IVIG Trend CK Continue with home PT exercises RTC in 6 months Hilary David DO PGY-4 Neurology Resident I have seen the patient and reviewed [...] Blackmon MD [facility] ER DR RHEUMATOLOGY [place], [place] [address] (Wo rk) Scheduled Procedures Name Priority Associated Diagnoses Date/Time EGD, UPPER GI ENDOSCOPY Family hx of colon cance r COLONOSCOPY, DIAGNOSTIC Family hx of colon cance r documented as of this encounter Visit Diagnoses Diagnosis Necrotizing myopathy - Primary Other myopathies documented in this encounter Care Teams Radio Control Crane Operator Relationship Specialty Start Date End Date Jazmine Baer MD PCP - General 11/07/10 [address] [place] [address] documented as of this encounter
--- OUTSIDE RECORDS SUMMARY | 2022-04-11 10:57 | XMS_ITS | Encounter Summary ---
:1960 Author Organization [facility] Address [facility] [place] [address] Care Team Providers Name Role Phone Jazmine Baer MD Primary Care Provider Encounter Details Date Type Department Care Team Description 05/28/2013 Hospital Encounter Outpatient Surgery Arvind Fuentes [facility] Fiona Montejo MD [facility] HEMATOLOGY/[place] [address] [place] [address] [phone] (Wo rk) Social History Tobacco Use Types [...] 5pm or on a weekend: Call the [facility] veneer jointer operator at and ask for the physician therapeutic recreation assistant covering for your doctor. Instructions following sedation [...] occurs, please contact your M. D. [address] [facility] [address] ??? [place] [address] ??? [phone] ??? [email or web address] ??? [facility] ??? [facility] ??? [facility] documented in this encounter Medications at Time of Discharge Medication Sig Dispensed Refills Start Date End Date omeprazole (PRILOSEC) 40 Take 1 capsule by 60 capsule 3 12/0 09/201206/18/2013 mg capsule mouth 2 times daily. [...] MD [facility] RHEUMATOLOGY [place], [place] [address] (Wo rk) Scheduled Procedures Name [...] Component Value Ref Test Analysis Performed At [facility] Method Time Signature Cytogenetics Final Report CERNER Acquired Report [facility] Department of Pathology - Cytogenetics Laboratory [address] [place] [address] [id number] ---Clinical Information--- Indication for Study: Anemia ?thrombocytopenia Specimen: ? Bone Marrow Accession: ?[id number] Collection Date/Time: 05/28/2013 15:15 Received Date/Time: ?? [...] (Electronic Signature) Verified By: Lawrence FONSECA, Ph.D., Liming Director, Cytogenetics Specimen (Source) Anatomical Collection Method Collection Time Re ceived Time Location / / Volume Laterality 05/28/2013 5:07 PM EST Alem Fuentes MD HEMATOLOGY ORDERABLES Performing Organization Address City/State/ZIP Code Phon e Number [address] [facility] Immunophenotyping Flow Cytometry (05/28/2013 3:15 PM EST) Component Value Ref Test Analysis Performed At [facility] SingOn Method Time Signature Type of Specimen Bone CERNER Marrow MILLENNIUM Panel Requested Other CERNER MILLENNIUM Immunophenotyping See CERNER Flow Comment MILLENNIUM Comment: When completed by the Pathologist, the F low Cytometry Report ([id number]) will display under the Hematopathology Repor ts result section in [facility]. Specimen Anatomical Collection Method Collection Time Receive d Time (Source) Location / / Volume Laterality Body fluid 05/28/2013 3:15 PM 3 8:29 specimen EST AM EST (specimen) Resulting Agency Comment Spec In Lab Alem Fuentes MD HEMATOLOGY ORDERABLES Performing Organization Address City/[facility]/ZIP Code Phon e Number [address] CERNER MILLENNIUM Iron Stain, Bone Marrow (05/28/2013 3:15 PM EST) [facility] gist Method Time Signature Iron Stain BM See Comment CERNER MILLENNIUM Comment: See Bone Marrow Report [id number] under Hematopathology Reports. Specimen Anatomical Collection Method Collection Time Receive d Time (Source) Location / / Volume Laterality Bone marrow 05/28/2013 3:15 PM 3 3:51 specimen EST PM EST (specimen) Resulting Agency Comment Spec In Lab Alem Fuentes MD HEMATOLOGY ORDERABLES Performing Organization Address City/[facility]/ZIP Code Phon e Number [address] CERNER MILLENNIUM Differential, Automated [...] Organization Address City/State/[place] [address] CERNER MILLENNIUM (ABNORMAL) CBC [...] 101 (L) 145 - 370 CERNER x10(3)/mcL MILLENNIUM RDWSD 48.4 (H) 35.0 - CERNER 46.0 [...] Organization Address City/State/[place] [address] CERNER MILLENNIUM Bone Marrow Flow Cytometry Report (05/28/2013 2:05 PM EST) Component Value Ref Test Analysis Performed At [facility] gist Range Method Time Signature Bone Marrow CERNER Flow ? [facility] MILLENNIUM Cytometry Report ? Provider: ?? ALEM FUENTES Pt. Name: ?? S BUCKY POWERS ?M ? Acc #: ?[id number] ? Pt. ? Col Date: ?? 05/28/20 13 ?/Sex: ?1960,(53 years),Male ? Rec Date: ?? 05/28/2013 ?LOC: ?[facility] ? ANALYTICAL CELL PATHOLOGY ? ---Clinical Information--- ? 53 yo man with anemia and thrombocytopenia. ? ---Preparation--- ? FCM: [id number] ? [id number] ? Bone Marrow ? ---Markers--- ? Cells [...] ? 05/29/13 ? 05/31/13 Verified by: ? Randi Ames MD ? (Electronic Si gnature) ? ---Comment--- ? [...] of this process and if necessary, ? [facility] ? Provider: ?? ALEM FUENTES Pt. Name: ?? BUCKY BETH ?M ? Acc #: ?[id number] ? Pt. ? Col Date: ?? 05/28/20 13 ?/Sex: ?1960,(53 years),Male ? Rec Date: ?? 05/28/2013 ?LOC: ?[facility] ? correlation with othe r ancillary studies like immunohistochemistry, enzyme ? cytochemistry and/or cyto/molecular genetics. ? ANALYTICAL CELL PATHOLOGY ? This test was develop ed and its performance characteristics determined by ? the Clinical Flow Cytometry Laboratory at [facility] ? Center. It has not been cleared or approved by the U.S. Food and Drug ? Administration. The [facility] has determined that such clearance or approval [...] Organization Address City/State/[place] [address] [facility] Bone Marrow Final Report (05/28/2013 2:05 PM EST) Component Value Ref Test Analysis Performed At [facility] gist Range Method Time Signature Bone Marrow CERNER Final Report ? [facility] ? Provider: ?? ALEM FUENTES Pt. Name: ?? BUCKY BETH ?M ? Acc #: ?[id number] ? Pt. ? Col Date: ?? 05/28/20 [...] estimated at approximatel y 50%. Myeloid ? [facility] ? Provider: ?? ALEM FUENTES Pt. Name: ?? BUCKY BETH ?M ? Acc #: ?[id number] ? Pt. ? Col Date: ?? 05/28/20 [...] since cessation of ? the medication. The herlinda mcclure morphologic findings in this blood and marrow ? would be consistent w ith recovery from treatment with an antifolate agent. ? Alternatively, though the current findings do not satisfy W.H.O. criteria ? for a diagnosis of a myelodysplastic syndrome (MDS) at this time, we could ? be looking at an early MDS, and a clonal cytogenetic change would favor ? [facility] ? Provider: ?? ALEM FUENTES Pt. Name: ?? BUCKY BETH ?M ? Acc #: ?[id number] ? Pt. ? Col Date: ?? 05/28/20 [...] Organization Address City/State/[place] [address] [facility] documented in this encounter Visit Diagnoses [...] injection (CANCELED) 1502 (Given - Provider: Mariposa Smith, WES)1507 (Given - Provider: Mariposa Smith RN) 25-100 mcg, Intravenous, EVERY 5 MIN PRN , Starting Raiza 05/28/13 at 1356, Until Raiza 12/19/13 at 1601, Pain, Hold for respiratory rate less than 8 breaths per minute. (maximum dose 200 mcg) , Intra-Operative (Intra-Procedure), Routine midazolam (VERSED) injection 0.5-2 mg (CANCELED) 1500 (Given - Provider: Mariposa Smith RN)1507 (Given - Provider: Mariposa Smith RN) 0.5-2 mg, Intravenous, EVERY 5 MIN PRN, Starting Raiza 05/28/13 at 1356, Until Raiza 05/28/13 at 1601, Sleep, Anxiety, Hold for delirium/agitation. (maximum dose 5 mg), Intra-Operative (Intra-Procedure), Routine documented in this encounter Care Teams Graphic Design Intern Relationship Specialty Start Date End Date Jazmine Baer MD PCP - General 11/07/10 [address] [place] [address] documented as of this encounter
--- OUTSIDE RECORDS SUMMARY | 2022-04-11 10:57 | XMS_ITS | Encounter Summary ---
:1960 Author Organization [facility] [place] [address] Care Team Providers Name Role Phone Jazmine Baer MD Primary Care Provider Reason for Visit Reason Onset Date Comments Other 05/05/2012 Encounter Details Date Type Department Care Team Description 05/05/2012 [place]phone [place] [facility] [place]ary David MD [facility] [place] [address] NEUROLOGY DEPT. [phone] [place] [id number] (Wo rk) Social History Tobacco Use Types [...] Telephone Encounter - Hilary David MD - 05/06/2012 5:35 PM EST Called patient. He saw Dr. Marie and he wished to continue IVIG treatment. Given all the troubleMr. Marie has with access he will need a port. Will contact PCP to arrange this so we can continue IVIG. Telephone Encounter - Bethanie Canales - 05/05/2012 12:52 PM EST Patient would like a call back from Dr David regarding a letter he received to discuss IVIG treatments. Please call the patient to discuss. documented in this encounter Plan of Treatment Upcoming Encounters Date Type Specialty Care Team Description 06/19/2022 Office Visit Rheumatology Richi Blackmon MD [facility] ER DR RHEUMATOLOGY [place], [place] [address] (Wo rk) Scheduled Procedures Name Priority Associated Diagnoses Date/Time EGD, UPPER GI ENDOSCOPY Family hx of colon cance r COLONOSCOPY, DIAGNOSTIC Family hx of colon cance r documented as of this encounter Visit Diagnoses Not on filedocumented in this encounter Care Teams Candy Dipper Relationship Specialty Start Date End Date Jazmine Baer MD PCP - General 11/07/10 [address] [place] [address] documented as of this encounter
--- OUTSIDE RECORDS SUMMARY | 2022-04-11 10:57 | XMS_ITS | Encounter Summary ---
:1960 Author Organization [facility] [place] [address] Care Team Providers Name Role Phone Jazmine Baer MD Primary Care Provider Encounter Details Date Type Department Care Team Description 11/15/2011 Abstract Neurology at [facility] iHlary David MD [facility] [place] [address] NEUROLOGY DEPT. [phone] [place], [place] [address] (Wo rk) Social History Tobacco [...] Blackmon MD [facility] RHEUMATOLOGY DEP [place], [place] [address] (Wo rk) Scheduled Procedures Name Priority Associated Diagnoses Date/Time EGD, UPPER GI ENDOSCOPY Family hx of colon cance r COLONOSCOPY, DIAGNOSTIC Family hx of colon cance r documented as of this encounter Visit Diagnoses Not on filedocumented in this encounter Care Teams Escalator Mechanic Relationship Specialty Start Date End Date Jazmine Baer MD PCP - General 11/07/10 [address] [place] [address] documented as of this encounter
--- OUTSIDE RECORDS SUMMARY | 2022-04-11 10:57 | XMS_ITS | Encounter Summary ---
:1960 Author Organization [facility] [place] [place] [address] Care Team Providers Name Role Phone Jazmine Baer MD Primary Care Provider Reason for Visit Reason Comments Follow-up Encounter Details Date Type Department Care Team Description 11/21/2011 Follow-Up Neurology at [facility] Braeden Barriga MD [facility] [place] [address] Myopathy (Primary Dx) [facility] Henrry Gleason MD [facility] [place] [address] [place] [address] Social History Tobacco Use Types Packs/Day [...] Sign Reading Time Taken Comments Blood Pressure 122/76 11/21/2011 9:15 AM EDT Pulse 57 11/21/2011 9:15 AM EDT Temperature - - Respiratory Rate - - Oxygen Saturation - - Inhaled Oxygen Concentration - - Weight 109.8 kg (242 lb) 11/21/2011 9:15 AM EDT reporte d Height 172.7 cm (5' 8) 11/21/2011 9:15 AM EDT reported Body Mass Index 36.8 11/21/2011 9:15 AM EDT documented in this encounter Progress Notes Hilary David MD - 11/21/2011 9:46 AM EDT Neurology Clinic Follow-up: Patient name: Bucky Acevedo Date of : 1960 CC: follow-up Patient ID: This is a 51 y.o. year old male I am following for necrotizing myopathy. He continues toreceiver monthly IVIG infusions and MTX and is followed at [facility] as well. Subjective: Since last being seen, Mr. Acevedo's CK levels have trended down from >1000 to 146 last month. Heis due for his next infusion tomorrow and is to go until February. He will see Dr. Marie at [facility] again at that time and than will decide how to proceed based on CK levels and his symptoms.He feels that overall his symptoms are stable but has not noticed a great improvement. He still has trouble with stairs but some improvement in carrying things, however still with difficulty with carrying things when going up stairs. He does mention some new systemic systems for the past three months or so. He reports a generalized fatigue, different from the muscular weakness he felt with his myopathy. He feels he has no energy atall,needs to nap constantly and does not feel like he can go to work. He has been nauseous and vomtiing for past three months as well large amounts, sometimes multiple times a day. Vomiting is not always associated with meals. Sometimes he doesn't feel like eating and soemtimes the site of food makes him sick. He feels full with eating only a little bit. He had a CT scan of the abdomen which was normal. He also states his blood sugars have been hard to control for the past few months ranging from 300- 400. He has been started on Lantus. Meds: Current outpatient prescriptions ordered prior to encounter Medication Sig Dispense Refill ??? lisinopril-hydrochlorothiazide (PRINZIDE;ZESTORETIC) 20-12.5 mg per tablet Take 1 tablet by mouth daily. ??? metFORMIN (GLUCOPHAGE) 500 mg tablet Take 500 mg by mouth 2 times daily (with meals). ??? atenolol (TENORMIN) 100 mg tablet Take 100 mg by mouth daily. ??? immune globulin,hum,,capr,IGG, (GAMUNEX) 10 % Inj infusion Inject into the vein. Receiving IVIG treatments for 2 consecutive days at the start of each month. ??? ibuprofen (ADVIL;MOTRIN) 200 mg tablet Take 400 mg by mouth every 6 hours as needed. ??? folic acid (FOLVITE) 1 mg tablet Take 1 mg by mouth daily. ??? methotrexate 2.5 mg tablet Take 15 mg by mouth once a week. ??? traMADol (ULTRAM) 50 mg tablet Take 100 mg by mouth 2 times daily. lantus 12 units at bedtime Review of systems: Constitutional: No fevers or chills Eyes: No vision changes, no diplopia, no blurry vision ENT: No rhinorrhea or pharyngitis, no meningismus CV: No chest pain or palpitations Resp: No cough, no shortness of breath GI: + nausea, vomiting, constipation : No dysuria, no incontinence Heme: No bleeding or bruising Endo: No diabetes or thyroid disease Neuro: See HPI Psych: No depression, normal sleep [x] Review of systems otherwise negative Objective: Vitals: Temp: -- Heart Rate: [57] Resp: -- BP: (122)/(76) SpO2: -- Constitutional: Patient of apparent stated age, no acute distress Resp: CTAB Abd: Soft, nontender, nondistended, protuberant Neuro: MS: Alert, oriented, clear language, no dysarthria CN: PERRL, EOMI, visual cano full, trigeminal sensation intact, no facial asymmetry, hearing intact to whisper, palate elevates symmetrically, tongue protrudes midline, SCM and trap strength intact Motor: Normal bulk and tone. 5/5 biceps bilaterally 4/5 triceps bilaterally 5/5 wrist extension and flexion 5/5 deltoids on right, 4/5 deltoids in left 4 /5 hip flexors, though weaker on left 5/5 knee extension and flexion 5/5 dorsi/plantar flexion Reflexes: 1+ DTRs, downgoing toes Assessment: 51 y.o. yo male with necrotizing myopathy of unclear etiology previously treated with steroids and now on Monthly IVIG and MTX. Etiology remains unclear, as paraneoplastic panel and mitochondrial mutations have not been found. CK levels have trended down nicely and on exam today he does appear stronger. He is going to continue monthly IVIg and monitoring CK levels. He will see Dr. Marie at [facility] in Feb at which time they will determine if he should continue with further infusions. As for his other symptoms of n/v/generalized fatigue, these appear to be unrelated to his neuromuscular disorder. I do not think these are side effects from IVIg as he has been receiving infusions for the past year without any trouble. In addition, symptoms have been persistent. He does have a historyof diabetes and I wonder if he may be developing gastroparesis. I advised him to bring this to the attention of his PCP for further work-up. Plan: Continue monthly IVIg until Feb Continue to monitor CK levels RTC in 6 months Work-up for other systemic complaints as per PCP Hilary David, Neurology Neurology Staff Note I have reviewed with the above resident's history during the visit and I agree with the details as written. My physical examination confirms the resident's findings. The assessment and plan were formulated in discussion with me at the time of the visit and I agree with them as documented. documented in this encounter Plan of Treatment Upcoming Encounters Date Type Specialty Care Team Description 06/19/2022 Office Visit Rheumatology Richi Blackmon MD [facility] DR RHEUMATOLOGY [place], [place] [address] (Wo rk) Scheduled Procedures Name Priority Associated Diagnoses Date/Time EGD, UPPER GI ENDOSCOPY Family hx of colon cance r COLONOSCOPY, DIAGNOSTIC Family hx of colon cance r documented as of this encounter Visit Diagnoses Diagnosis Myopathy - Primary Myopathy, unspecified documented in this encounter Care Teams Network Support Specialist Relationship Specialty Start Date End Date Jazmine Baer MD PCP - General 11/07/10 [address] [place] [address] documented as of this encounter
--- OUTSIDE RECORDS SUMMARY | 2022-04-11 10:58 | XMS_ITS | Encounter Summary ---
:1960 Author Organization [facility] [place] [address] Care Team Providers Name Role Phone Jazmine Baer MD Primary Care Provider Reason for Visit Reason Comments Myopathy CK levels Encounter Details Date Type Department Care Team Description 11/07/2010 Office Visit Neurology at [facility] Henrry Gleason, Necrotizing myositis [facility] (Primary Dx) [place] [address] NEUROLOG[address] DEPT. [phone] [place], [place] [address] Social History Tobacco Use Types [...] Sign Reading Time Taken Comments Blood Pressure 130/72 11/07/2010 12:46 PM EDT Pulse 72 11/07/2010 12:46 PM EDT Temperature - - Respiratory Rate - - Oxygen Saturation - - Inhaled Oxygen Concentration - - Weight 113.4 kg (250 lb) 11/07/2010 12:46 PM EDT Height 172.7 cm (5' 8) 11/07/2010 12:46 PM EDT Body Mass Index 38.01 11/07/2010 12:46 PM EDT documented in this encounter Patient Instructions Patient InstructionsHilary David MD - 11/07/2010 1:59 PM EDT Myopathy - Will arrange for a 3 day course of IVIg infusions. We will be in touch regarding infusions when insurance approval is obtained. documented in this encounter Progress Notes Henrry Gleason MD - 11/07/2010 8:29 PM EDT Patient examined, assessed and discussed with Dr. David. I agree with her exam, assessment and plan as outlined in her note above. Hilary David MD - 11/07/2010 1:58 PM EDT Patient name: Bucky Acevedo Date of : 1960 CC: progressive weakness HPI: Bucky Acevedo is a 50 y.o. year old male presenting to urgent clinic at the request of Daniela Hanna PA-C for progressive weakness in the setting of a diagnosis of immune-mediated necrotizing myopathy. He is usually followed by Dr. Bucky Marie at [facility]. Mr. Acevedo noted increased back aches, muscle pains, and weakness over the past two months. He reports difficulty climbing stairs and holding a gallon of milk or pitcher of water. He also thinks his speech has become more nasal as previously. He denies difficulty swallowing. His recent CK level from the was 5431. He reports a outbreak of shingles last month on the upper left side of his chest for which he went to the ER but was not treated with anything. Mr. Acevedo first came to the attention of the neurology department in Jun 2009 with progressive muscle weakness and found to have myopathy with elevated CK in the 5000s. He had been on Lipitor for about nine years, he stated he was on 100 mg. A muscle biopsy was performed which revealed myopathy but no clear etiology was determined. He was then followed by Dr. Marie in [facility] and his pathology slides where review by a Dr. Ricardo on [place]. He felt that the slides were consistent with necrotizing myopathy. A paraneoplastic work-up was recommended, which he did have at the time of presentation to [facility] and it was negative. Mr. Acevedo has recovered from being bed bound to ambulating without an assistive device over the course of the year. He was treated with a course of IVIg 1gram/kg x 2 days and prednisone. He was tapered off but prior to his f/u with Dr. Marie he discontinued it entirely inAugust 2009. When seen in September [address] Marie, patient complained of increasing weakness and his CK was 3287. At that time he was started on methotrexate and is currently on 12.5 mg every . He was to bee seen in three month however it was noted that his CK levels were rising so Dr. Marie was arranging for home IVIg as patient lives in [place] and cannot easily travel to [place] and so presented here. Past Medical History Diagnosis Date ??? Diabetes ??? Hypertension ??? Hyperlipidemia ??? Gout ??? Obesity ??? Kidney stone ??? 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 Shingles Family History Problem Relation Age of Onset ??? Colon Cancer Mother ??? Diabetes Mother ??? Heart Attack Father first [place] at 36 ??? Coronary Art Dis Father ??? Diabetes Sister ??? Stomach Cancer uncle History Social History ??? Marital Status: Spouse Name: N/A Number of Children: 4 ??? Years of Education: N/A Occupational History ??? Not on file. Social History Main Topics ??? Smoking status: Never Smoker ??? Smokeless tobacco: Never Used ??? Alcohol Use: 0.0 oz/week < 1 drink per month ??? Drug Use: No ??? Sexually Active: Not on file Other Topics Concern ??? 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 folic acid (FOLVITE) 1 mg tablet Take 1 mg by mouth daily. ??? methotrexate 2.5 mg tablet Take 12.5 mg by mouth once a week. ??? traMADol (ULTRAM) 50 mg tablet Take 100 mg by mouth 2 times daily. ??? pioglitazone (ACTOS) 30 mg tablet Take 30 mg by mouth daily. Indications: Type 2 Diabetes Mellitus ??? metFORMIN (GLUCOPHAGE) 1,000 mg tablet 850MG, PO, Twice daily ??? atenolol (TENORMIN) 100 mg tablet 100MG, PO, Once daily ??? lisinopril-hydrochlorothiazide (PRINZIDE;ZESTORETIC) 20-12.5 mg per tablet 1 Tablet(s), PO, Oncedaily Allergies Allergen Reactions ??? Miwzgnt-try-zid Reductase Inhibitors Myopathy Review of systems: Constitutional: [...] negative Objective: Vitals: Temp: -- Heart Rate: [72] Resp: -- BP: (130)/(72) SpO2: -- Constitutional: Patient of apparent stated age, well nourished, well developed Neck: Supple, no meningismus, no carotid bruit CV: RRR, S1, S2, no murmur Resp: CTAB Abd: Soft, nontender, nondistended, protuberant abdomen Ext:bilateral lower extremity swelling Neuro: MS: Alert, oriented, clear language, no dysarthria CN: PERRL, EOMI, visual cano full, trigeminal sensation intact, no facial asymmetry, hearing intact to whisper, palate elevates symmetrically, tongue protrudes midline, SCM and trap strength intact Motor: Normal bulk and tone. 5/5 strength in bilateral upper extremities 4/5 proximal lower extremities (hip flexion and extension) 5/5 distal lower extremities Sensation: Intact to light touch, pain, temperature, and vibration throughout expect for decreased sensation to pinprick and vibration in the feet Reflexes: 1+ DTRs throughout , downgoing toes Coordination: Finger to nose intact, rapid alternating movements intact and symmetric Gait: ambulates with a slight limp Labs: CK 11/01/10: 5431 TPMT enzyme activity 08/2009 normal Myositis Antibody Panel Plus 06/2009 negative (anti-Kiesha, PM/SCL, WI-2, PL-7, PL- 12, EJ, OJ KU, U2 SN SAFE TECHNICIAN, SRP) mitochondrial mutations: Absence of all screened point mtDNA mutations and deletions associated with neuromuscular disorders. 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 Etiology remains unclear, as paraneoplastic panel and mitochondrial mutations have not been found. Since IVIg has worked for him in the past, it isnot unreasonable to try this again. Plan: - will set up for 3 day course of IVIg this week pending insurance approval, either home or at [facility] - will monitor CK levels - will see patient in f/u a few weeks after IVIg infusion - patient is to see Dr. Marie in December - we are happy to follow-up in between his appointments in [place] documented in this encounter Plan of Treatment Upcoming Encounters Date Type Specialty Care Team Description 06/19/2022 Office Visit Rheumatology Richi Blackmon MD [facility] DR RHEUMATOLOGY [place], [place] [address] (Wo rk) Scheduled Procedures Name Priority Associated Diagnoses Date/Time EGD, UPPER GI ENDOSCOPY Family hx of colon cance r COLONOSCOPY, DIAGNOSTIC Family hx of colon cance r documented as of this encounter Visit Diagnoses Diagnosis Necrotizing myositis - Primary Necrotizing fasciitis documented in this encounter Care Teams Nurses Superintendent Relationship Specialty Start Date End Date Jazmine Baer MD PCP - General 11/07/10 [address] [place] [address] documented as of this encounter
--- OUTSIDE RECORDS SUMMARY | 2022-04-11 10:58 | XMS_ITS | Encounter Summary ---
:1960 Author Organization [place] [address] Care Team Providers Name Role Phone Jazmine Baer MD Primary Care Provider Reason for Visit Reason Onset Date Comments Other 12/21/2010 Encounter Details Date Type Department Care Team Description 12/21/2010 Telephone Neurology at [facility] Hilary David MD [facility] Hilda shafer [facility] [place] [address] NEUROLOGY DEPT. [phone] [place] [id number] (Wo rk) Social History Tobacco Use Types [...] Telephone Encounter - Hilary David MD - 12/21/2010 9:50 AM EDT Called patient back. No answer. Left message. As far as I know he was not supposed to get more IVIg infusions. He has an appointment with his other neurology in [place] his month and we wanted him to f/u there as was scheduled prior to other testing/treatment. We had asked that he f/u with his PCP to check levels. He shouldn't have to come all the way to [facility] foe lab draw. Telephone Encounter - Christal Chappell - 12/21/2010 8:24 AM EDT Patient state not hearing from company in regard to IVIIG infusions. Patients states that a Dr. Bucky Olivera is awaiting CK counts. documented in this encounter Plan of Treatment Upcoming Encounters Date Type Specialty Care Team Description 06/19/2022 Office Visit Rheumatology Richi Blackmon MD [facility] ER DR RHEUMATOLOGY [place], [place] [address] (Wo rk) Scheduled Procedures Name Priority Associated Diagnoses Date/Time EGD, UPPER GI ENDOSCOPY Family hx of colon cance r COLONOSCOPY, DIAGNOSTIC Family hx of colon cance r documented as of this encounter Visit Diagnoses Not on filedocumented in this encounter Care Teams Belly Roller Relationship Specialty Start Date End Date Jazmine Baer MD PCP - General 11/07/10 [address] [place] [address] documented as of this encounter
--- OUTSIDE RECORDS SUMMARY | 2022-04-11 10:58 | XMS_ITS | Encounter Summary ---
:1960 Author Organization [facility] [place] [address] Care Team Providers Name Role Phone Jazmine Baer MD Primary Care Provider Reason for Visit Reason Comments Dysphagia Encounter Details Date Type Department Care Team Description 11/22/2010 Emergency Emergency Department Rosales Parker ph, E LEARNING COORDINATOR Dysphagia, unspecified [facility] PHYSICAL [facility]IC[facility] & [facility] [place] [address] [place] [address] Social History Tobacco Use Types Packs/Day Years [...] documented as of this encounter Progress Notes Pop Parker, E LEARNING COORDINATOR - 11/22/2010 4:16 PM EDT Speech-Language Pathology Bedside Swallow Evaluation 11/22/2010 2:13 PM 1960 Total Treatment Time: 31 min.eval. Total Timed Code Treatment: 0 min. Hospital Course: Order received. Pt. is a Bucky Arboleda Curtis is a 50 y.o. male admitted on 11/22/2010 due to [place], increased raspy voice. Presumed diagnosis is necrotizing myopathy. Speech consulted. For complete history see physician's H&P. Past Medical history: Past Medical History Diagnosis Date ??? Diabetes ??? Hypertension ??? Hyperlipidemia ??? Gout ??? Obesity ??? Kidney stone ??? 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 Shingles S: Pt. contacted, alert. HOB elevated to approximately 65 degrees. Oriented x 4. Follows directions. Pt. denies pain at this time. O: Current diet: Regular consistency, low carb diet with regular liquids. Respiratory Status: Currently on RA. Feeding / Oral Care Status: Independent. Oral / Laryngeal Mechanism Clinical Assessment: Lingual: Tongue protrudes midline. Normal lingual ROM in all planes. Clear articulatory contacts during diadochokinetic movements. Labial: Slight decrease in left labial protrusion and retraction. Slight left labial droop at rest. Velar: Uvula is midline. Velar elevation is present. Velo-pharyngeal seal is functional. Sensation: Intact. Vocal fold function and airway protection: Vocal quality is clear. Voluntary cough is strong and sufficient to protect airway. Bolus Presentation(s) Thin liquid, Regular consistency Oral Preparatory Phase Mastication: Normal. Oral Transit: Normal. Bolus Cohesion: Normal. Labial Seal / Loss: Negative. Oral Stasis: Negative. Pharyngeal Phase Initiation: Timely. Laryngeal Elevation: Functional to palpation. Vocal quality change: Without change in vocal quality following swallows. Cough: Without cough following swallows. Change in O2 sats: Negative. Pt. complaint of food getting stuck: Negative. Esophageal Phase Appears to be WFL, No overt clinical s/s of esophageal phase dysphagia noted during this evaluation. A: Summary: Normal oral manipulation of bolus material. Without signs of aspiration. Articulatory contacts are clear and organized appropriately during diadochokinetic movements and during conversation. Only significant finding at this time is left labial weakness. Will monitor given unclear diagnosis in the event symptoms progress. Dx: Functionally appearing oral / pharyngeal swallow. Education: Spoke with pt. re: above results and below recommendations. P: RECOMMENDATIONS: Regular consistency diet with regular liquids. Upright to feed. PO medication whole with water. Frequency of care: Speech Pathology to monitor pt. with a meal / for need for further w/u Pt./family are in agreement with treatment plan. Goals: Pt will take part in further evaluation. Thank you for this consult with this patient. Please feel free to page me with any questions or concerns. Pop Parker MS, CCC-E LEARNING COORDINATOR Inpatient Rehabilitation Medicine Pager: # [phone] documented in this encounter Plan of Treatment Upcoming Encounters Date Type Specialty Care Team Description 06/19/2022 Office Visit Rheumatology Richi Blackmon MD [facility] ER DR RHEUMATOLOGY [place], [place] [address] (Wo rk) Scheduled Procedures Name Priority Associated Diagnoses Date/Time EGD, UPPER GI ENDOSCOPY Family hx of colon cance r COLONOSCOPY, DIAGNOSTIC Family hx of colon cance r documented as of this encounter Visit Diagnoses Diagnosis Dysphagia, unspecified(787.20) Dysphagia, unspecified documented in this encounter Care Teams Bottled Beverage Inspector Relationship Specialty Start Date End Date Jazmine Baer MD PCP - General 11/07/10 [address] [place] [address] documented as of this encounter
--- OUTSIDE RECORDS SUMMARY | 2022-04-11 10:58 | XMS_ITS | Encounter Summary ---
:1960 Author Organization [facility] [place] [address] Care Team Providers Name Role Phone Jazmine Baer MD Primary Care Provider Reason for Visit Reason Onset Date Comments Prior Authorization 11/21/2010 ivig Encounter Details Date Type Department Care Team Description 11/21/2010 Telephone Neurology at [facility] Hilary David MD Prior Authorization [facility] (iv ig ) [place] [address] NEUROLOGY DEPT. [phone] [place] [address] Social History Tobacco Use Types Packs/Day Years [...] Telephone Encounter - Sharon Stokes RN - 11/21/2010 5:24 PM EDT Call from Pat at [facility], IVIG authorization given starting November 29 x 6 mo. Authorization number [id number]. Pt scheduled for IVIG , December 18,13 @ 130 pm,1pm ,1pm. Pt notified. Pat at [facility] indicated that the first infusions are covered for clinic but further infusions must be done via [place] home [facility]. Dr David notified. documented in this encounter Plan of Treatment Upcoming Encounters Date Type Specialty Care Team Description 06/19/2022 Office Visit Rheumatology Richi Blackmon MD [facility] ER DR RHEUMATOLOGY [place], [place] [address] (Wo rk) Scheduled Procedures Name Priority Associated Diagnoses Date/Time EGD, UPPER GI ENDOSCOPY Family hx of colon cance r COLONOSCOPY, DIAGNOSTIC Family hx of colon cance r documented as of this encounter Visit Diagnoses Not on filedocumented in this encounter Care Teams Pattern Gater Relationship Specialty Start Date End Date Jazmine Baer MD PCP - General 11/07/10 [address] [place] [address] documented as of this encounter
--- OUTSIDE RECORDS SUMMARY | 2022-04-11 10:58 | XMS_ITS | Encounter Summary ---
:1960 Author Organization [facility] Address [facility] [address] Care Team Providers Name Role Phone Jazmine Baer MD Primary Care Provider Reason for Visit Reason Comments Follow-up Encounter Details Date Type Department Care Team Description 05/24/2011 Office Visit Neurology at [facility] Braeden Barriga MD Necrotizing myositis [facility] (Pr imary Dx) Drive [place] NE[place]PT. [id number] [place] [address] [phone] Social History Tobacco Use Types Packs/Day Years [...] Sign Reading Time Taken Comments Blood Pressure 118/67 05/24/2011 2:52 PM EST Pulse 69 05/24/2011 2:52 PM EST Temperature - - Respiratory Rate - - Oxygen Saturation - - Inhaled Oxygen Concentration - - Weight 112.5 kg (248 lb) 05/24/2011 2:52 PM EST Height 175.3 cm (5' 9) 05/24/2011 2:52 PM EST Body Mass Index 36.62 05/24/2011 2:52 PM EST documented in this encounter Progress Notes Braeden Barriga MD - 06/16/2011 1:25 PM EST Patient name: Bucky Acevedo Date of : 1960 CC: f/u Patient ID: This is a 51 y.o. year old male I am following for necrotizing myopathy. Subjective: Since last being seen, Mr. Acevedo was undergone 6 months of IVIG treatment. His CK level trended down to ~1000. He continues to have weakness, especially proximal lower extremity. It is very difficulty to climb stairs. He states overall, even though his CK levels have decreased he does not feel any stronger. He needs to take frequent breaks. He stopped working about 12 weeks ago due to symptoms. He saw Dr. Marie in [place] yesterday. Plan is to continue another 6 month course of IVIg. Meds: Outpatient encounter prescriptions as of 05/24/2011 Medication Sig Dispense Refill ??? metFORMIN (GLUCOPHAGE) 500 mg tablet Take [...] daily. ??? methotrexate 2.5 mg tablet Take 20 mg by mouth once a week. ??? traMADol (ULTRAM) 50 mg tablet Take 100 mg by mouth 2 times daily. ??? pioglitazone (ACTOS) 30 mg tablet Take 30 mg by mouth daily. Indications: Type 2 Diabetes Mellitus ??? lisinopril-hydrochlorothiazide (PRINZIDE;ZESTORETIC) 20-12.5 mg per tablet 1 Tablet(s), PO, Oncedaily ??? DISCONTD: metFORMIN (GLUCOPHAGE) 1,000 mg tablet 850MG, PO, Twice daily ??? DISCONTD: atenolol (TENORMIN) 100 mg tablet 100MG, PO, Once daily Objective: Vitals: Temp: -- Heart Rate: [69] Resp: -- BP: (118)/(67) SpO2: -- Constitutional: Patient of apparent stated age, well nourished, well developed, no acute distress Neuro: MS: Alert, oriented, clear language, no dysarthria CN: PERRL, EOMI, visual cano full, trigeminal sensation intact, no facial asymmetry, hearing intact to whisper, palate elevates symmetrically, tongue protrudes midline, SCM and trap strength intact Motor: Normal bulk and tone. 4/5 strength in bilateral upper and lower extremities, but worse so on left and hip flexors Sensation: Intact to light touch, pain, temperature, and vibration throughout Reflexes: 1+ DTRs, downgoing toes Assessment: 50 year old man with necrotizing myopathy previously treated with IVIg, steroids and now on MTX witha re-occurrence of symptoms. Etiology remains unclear, as paraneoplastic panel and mitochondrial mutations have not been found. Since IVIg has worked for him in the past and his CK levels are decreasing will continue another 6 month course [address] per Dr. Marie. Plan: - continue another six month course of IVIg - will call pharmacy to set up and give orders - will see in 6 months - f/u in [place] in 3 months Hilary David, Neurology Neurology Attending Note I have seen and examined Mr. Acevedo with Neurology resident Dr. Hilary David. My history and examination corroborates the findings documented above. Pertinent history: Presenting with similar symptoms as past which represents recurrent necrotizing myopathy Pertinent exam: Mild proximal weakness in upper and lower extremities. Major issues addressed: Agree with plan as documented above. Continue another course if IVIG for 6 months. F/u in [place] in 3 months and here in 6 months. documented in this encounter Plan of Treatment Upcoming Encounters Date Type Specialty Care Team Description 06/19/2022 Office Visit Rheumatology Richi Blackmon MD [facility] MEDICAL [facility] DR RHEUMATOLOGY [place], [place] [address] (Wo rk) Scheduled Procedures Name Priority Associated Diagnoses Date/Time EGD, UPPER GI ENDOSCOPY Family hx of colon cance r COLONOSCOPY, DIAGNOSTIC Family hx of colon cance r documented as of this encounter Visit Diagnoses Diagnosis Necrotizing myositis - Primary Necrotizing fasciitis documented in this encounter Care Teams Process Development Manager Relationship Specialty Start Date End Date Jazmine Baer MD PCP - General 11/07/10 [address] [place] [address] documented as of this encounter
--- OUTSIDE RECORDS SUMMARY | 2022-04-11 10:58 | XMS_ITS | Encounter Summary ---
:1960 Author Organization [facility] [place] [address] Care Team Providers Name Role Phone Jazmine Baer MD Primary Care Provider Reason for Visit Reason Onset Date Comments Other 11/14/2010 Encounter Details Date Type Department Care Team Description 11/14/2010 Telephone Neurology at [facility] Hilary David MD [facility] Hilda shafer [facility] [place] [address] NEUROLOGY DEPT. [phone] [place] [phone] (Wo rk) Social History Tobacco Use Types [...] this encounter Miscellaneous Notes Telephone Encounter - BacilioChristal meyer [place] - 11/14/2010 4:35 PM EDT PATIENT CALLED [employer] (INSURANCE) TO LET THEM KNOW THAT [facility] NEEDED MORE INFORMATION OR AN AUTHORIZATION FOR INJECTIONS. THE CONTACT THERE TOLD THE PATIENT THAT SHE DID NOT UNDERSTAND WHAT WAS NEEDED. [facility]ED[facility] A CALL ABOUT THIS. THE MINE LABORER IS KRISHNA AND HER NUMBER IS [phone] SHE IS IN FROM 9- 5. documented in this encounter Plan of Treatment Upcoming Encounters Date Type Specialty Care Team Description 06/19/2022 Office Visit Rheumatology Richi Blackmon MD [facility] ER DR RHEUMATOLOGY [place], [place] [address] (Wo rk) Scheduled Procedures Name Priority Associated Diagnoses Date/Time EGD, UPPER GI ENDOSCOPY Family hx of colon cance r COLONOSCOPY, DIAGNOSTIC Family hx of colon cance r documented as of this encounter Visit Diagnoses Not on filedocumented in this encounter Care Teams Director Erp Relationship Specialty Start Date End Date Jazmine Baer MD PCP - General 11/07/10 [address] [place] [address] documented as of this encounter
--- OUTSIDE RECORDS SUMMARY | 2022-04-11 10:58 | XMS_ITS | Encounter Summary ---
:1960 Author Organization [facility] [place] [address] Care Team Providers Name Role Phone Jazmine Baer MD Primary Care Provider Reason for Visit Reason Onset Date Comments Other 11/15/2010 Encounter Details Date Type Department Care Team Description 11/15/2010 Telephone Neurology at [facility] [place] [place] Hilary David MD [facility] [place] [facility] Hilda shafer [facility] [place] [address] NEUROLOGY DEPT. [phone] [place] [id number] (Wo rk) Social History Tobacco Use Types [...] Telephone Encounter - Sharon Stokes RN - 11/15/2010 11:23 AM EDT I just faxed it. It is not a covered dx for IVIG so will see what they say. I called initially advised send info for review. I will let you know as soon as I hear so that we can schedule. Thanks,C Telephone Encounter - Hilary David MD - 11/15/2010 11:07 AM EDT I called patient's .I stated that I called insurance appraiser this Am and left a message for her to call be back. We did also fax over some information on this Saturday. Will speak to her to figure out why this is taking so long. Telephone Encounter - Eugenia Castorena - 11/15/2010 10:55 AM EDT called to see if phone call has been made to [facility]. She says her is getting worse. He haslost 9 lbs. documented in this encounter Plan of Treatment Upcoming Encounters Date Type Specialty Care Team Description 06/19/2022 Office Visit Rheumatology Richi Blackmon MD [facility] MEDICAL [facility] ER DR RHEUMATOLOGY [place], [place] [address] (Wo rk) Scheduled Procedures Name Priority Associated Diagnoses Date/Time EGD, UPPER GI ENDOSCOPY Family hx of colon cance r COLONOSCOPY, DIAGNOSTIC Family hx of colon cance r documented as of this encounter Visit Diagnoses Not on filedocumented in this encounter Care Teams Tool Clerk Relationship Specialty Start Date End Date Jazmine Baer MD PCP - General 11/07/10 [address] [place] [address] documented as of this encounter
--- OUTSIDE RECORDS SUMMARY | 2022-04-11 10:58 | XMS_ITS | Encounter Summary ---
:1960 [place] [address] Care Team Providers Name Role Phone Samantha Baer MD Primary Care Provider Reason for Visit Reason Comments Extremity Weakness Encounter Details Date Type Department Care Team Description 11/22/2010 - Hospital Encounter 1 Wilfred Monson Myopath y; 11/25/2010 [facility] MD Nikia Myopathy, unspecified Hospital [facility] [address] [place] [id number] [phone] Social History Tobacco Use Types Packs/Day Years [...] Sign Reading Time Taken Comments Blood Pressure 112/74 11/25/2010 8:27 AM EDT Pulse 66 11/25/2010 8:27 AM EDT Temperature 37.2 ??C (99 ??F) 11/25/2010 8:27 AM EDT Respiratory Rate 16 11/25/2010 8:27 AM EDT Oxygen Saturation 96% 11/25/2010 8:27 AM EDT Inhaled Oxygen Concentration - - Weight 112 kg (247 lb) 11/22/2010 11:22 AM EDT Height 175.2 cm (5' 8.98) 11/23/2010 11:36 AM EDT Body Mass Index 36.5 11/22/2010 11:22 AM EDT documented in this encounter Discharge Instructions Patient InstructionsAmy Mayer MD - 11/24/2010 1:34 PM EDT Your diagnosis: Necrotizing myopathy Changes to Medication Regimen: None Primary Care Provider: SAMANTHA BAER MD Recommendations for Primary Care Provider for Follow-up: Monitor CK levels Patient Instructions: Call your doctor or seek medical attention if you have increasing weakness or numbness, fever Diet: we recommend a heart healthy diet: low fat, low cholesterol, low concentrated sweets. Activity Restrictions: as tolerated Follow-up: 1. Neurology: You will have a follow-up appointment in the neurology clinic at [facility] with Dr. David. You will be called with a time/date for this appointment. Please keep your follow-up appointment with Dr. Marie in [place] in December. 2. Primary Care Provider: Please follow up with your Primary Care Provider as recommended above. Please call his/her office at the number listed above to schedule an appointment. For questions regarding this document or issues relating to this hospitalization on the Neurology Service, please contact the author(s) of this discharge summary through the [facility] [place] . documented in this encounter Medications at Time of Discharge Medication Sig Dispensed Refills Start Date End Date folic acid (FOLVITE) 1 mg Take 1 mg by mouth 0 11/04/2013 tablet daily. methotrexate 2.5 mg tablet Take 15 mg by mouth 0 04/02/2013 once a week. traMADol (ULTRAM) 50 mg Take 100 mg by 0 11/08/19 11 01/14/2015 tablet mouth 2 times daily. 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 Interval History/Subjective: No acute issues overnight per nursing. Patient to receive last dose of IVIG this am. He believes hisstrength continues to improve slightly, especially in his LE. Relevant Meds: ??? immune globulin(hum),capr(IGG) 60 g Intravenous Daily ??? immune globulin(hum),capr(IGG) 5 g Intravenous Daily ??? atenolol 100 mg Oral Daily ??? folic acid 1 mg Oral Daily ??? methotrexate 12.5 mg Oral Weekly ??? pioglitazone 30 mg Oral Daily ??? traMADol 100 mg Oral BID ??? lisinopril 10 mg Oral Daily ??? hydrochlorothiazide 25 mg Oral Daily ??? sodium chloride 0.9 % 5 mL Intravenous Q12H ??? enoxaparin 40 mg Subcutaneous Daily ??? docusate sodium 100 mg Oral BID Prn: acetaminophen, bisacodyl, magnesium hydroxide, ondansetron, ondansetron Physical Exam: Vitals: Temp: [35.9 ??C (96.6 ??F)-37.2 ??C (99 ??F)] Heart Rate: [60-87] Resp: [18] BP: (107-131)/(55-77) SpO2: [96 %-98 %] General: NAD. Nondiaphoretic. Neuro: Neuro exam: MSE: alert and oriented. Follows simple and complex commands. Speech fluent with mild hypophonia, able to repeat a sentence, names objects. CN: PERRL, no nystagmus, EOMI, facial sensation intact, face symmetric, tongue protrudes midline, uvula and palate elevate symmetrically, trap symmetric strength bilaterally Segment Muscle Action Right Left C5 Deltoids Biceps Shoulder abduction Elbow flexion 5-/5 5-/5 C6 Extensor carpi radialis Wrist extension 5/5 5/5 C7 Triceps Elbow extension 5/5 5/5 C8, T1 Hand intrinsics Thumb abduction (rad) Finger flexion/battalion fire chief (med) Interosseous (ulnar) 5/5 5/5 L2 Iliopsoas Hip flexion 4/5 4/5 L3 Quadriceps Knee extension 4+/5 4+/5 L5-S2 Biceps femoris Knee flexion 5/5 5/5 L4 Tibialis anterior Dorsiflexion 5/5 5/5 L5 Extensor hallucis Great toe extension 5/5 5/5 S1 Gastrocnemius Plantar flexion 5/5 5/5 Reflexes 1+ bilat biceps, brachioradialis, triceps tr bilat patella, achilles downgoing toes Sensation: diminished vibration and temp in bilat feet Coordination: improved dysmetria with FNF bilaterally Gait: not tested this am Labs: Results for orders placed during the hospital encounter of 11/22/10 (from the past 24 hour(s)) POCT GLUCOSE LAB USE ONLY Component Value Range ??? POC Glucose 115 60 - 199 (mg/dL) BASIC METABOLIC PANEL (NON-FASTING) Component Value Range ??? Glucose Lvl 106 60 - 199 (mg/dL) ??? BUN 17 10 - 20 (mg/dL) ??? Creatinine 0.69 (*) 0.80 - 1.50 (mg/dL) ??? Sodium 135 135 - 145 (mmol/L) ??? Potassium 3.9 3.5 - 5.0 (mmol/L) ??? Chloride 101 98 - 107 (mmol/L) ??? CO2 26 22 - 31 (mmol/L) ??? Anion Gap 8 5 - 15 (mmol/L) ??? Calcium 9.0 8.5 - 10.5 (mg/dL) ? ? Estimated GFR >60 >=60 CK Component Value Range ??? CK, Total 6057 (*) 0 - 200 (unit/L) POCT GLUCOSE LAB USE ONLY Component Value Range ??? POC Glucose 150 60 - 199 (mg/dL) POCT GLUCOSE LAB USE ONLY Component Value Range ??? 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 Etiology remains elusive , as paraneoplastic panel and mitochondrial mutations have not been found. Statin induced myopathy remains a possibility as this can be recurrent despite discontinuation of statin. Patient had a great response to IVIG last year, and thus he was admitted to repeat this as well as hydrate, close monitor for respiratory status, and monitor cpks. Patient has improved clinically on the IVIG and will receive his last dose this am. Anticipate he will be medically ready for discharge later this am. 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 I saw and evaluated the patient with Dr. Gonzales . I have reviewed the fellow' history during the visit and I agree with the details as written. My neurological examination confirms the resident's findings. The assessment and plan were formulated in discussion with me at the time of the visit and I agree with them as documented. Marino East MD Pop Parker SLP - 11/24/2010 10:19 AM EDT Speech-Language Pathology Progress Note 11/24/2010 10:20 AM Total Treatment Time: 7 min DCP. Total Timed Code Treatment: 0 min. S: Pt contacted, alert. Pt denies pain with treatment. O&A: Pt reports no difficulty with swallowing has developed. Speech remains clear. Nursing reports no difficulty. Continues to tolerate regular diet with regular liquids. P: D/C from speech intervention. Pt/family are in agreement with plan. 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 Interval History/Subjective: - No events overnight - Feels stronger this am Relevant Meds: ??? immune globulin(hum),capr(IGG) 60 g Intravenous Daily ??? immune globulin(hum),capr(IGG) 5 g Intravenous Daily ??? DISCONTD: immune globulin(hum),capr(IGG) 65 g Intravenous Daily ??? DISCONTD: immune globulin(hum),capr(IGG) 65 g Intravenous Daily ??? atenolol 100 mg Oral Daily ??? folic acid 1 mg Oral Daily ??? methotrexate 12.5 mg Oral Weekly ??? pioglitazone 30 mg Oral Daily ??? traMADol 100 mg Oral BID ??? lisinopril 10 mg Oral Daily ??? hydrochlorothiazide 25 mg Oral Daily ??? sodium chloride 0.9 % 5 mL Intravenous Q12H ??? enoxaparin 40 mg Subcutaneous Daily ??? docusate sodium 100 mg Oral BID ??? DISCONTD: immune globulin(hum),capr(IGG) 40 g Intravenous Daily ??? DISCONTD: immune globulin(hum),capr(IGG) 5 g Intravenous Daily Prn: acetaminophen, bisacodyl, magnesium hydroxide, ondansetron, ondansetron Physical Exam: Vitals: Temp: [35.9 ??C (96.6 ??F)-36.7 ??C (98.1 ??F)] Heart Rate: [68] Resp: [18-20] BP: (106-137)/(63-82) SpO2: [96 %-97 %] General: NAD. Nondiaphoretic. HEENT: normocephalic/atraumatic. Oropharynx clear. Neck is supple with FROM. No meningeal signs CV: regular rate/rhythm, no murmurs/rubs/gallops. No carotid bruits ascultated. Pulm: clear to auscultation bilaterally. Abd: soft, ND, NTTP, NABS Back: No spinal deformities or localized signs of inflammation. No saddle anesthesia. Rectal tone isnormal. Extremities: warm and well perfused, no edema Neuro: Neuro exam: MSE: alert, oriented to person, place, time, situation, follows simple and complex commands, speech fluent with mild hypophonia, able to repeat a sentence, names objects. CN: PERRL, no nystagmus, EOMI, facial sensation intact, nasolabial flattening on the left improved, tongue protrudes midline, uvula and palate elevate symmetrically, trap symmetric strength bilaterally Segment Muscle Action Right Left C5 Deltoids Biceps Shoulder abduction Elbow flexion 4+/5 4+/5 C6 Extensor carpi radialis Wrist extension 5/5 5/5 C7 Triceps Elbow extension 5/5 5/5 C8, T1 Hand intrinsics Thumb abduction (rad) Finger flexion/battalion fire chief (med) Interosseous (ulnar) 5/5 5/5 L2 Iliopsoas Hip flexion 3/5 3/5 L3 Quadriceps Knee extension 4/5 4/5 L5-S2 Biceps femoris Knee flexion 5/5 5/5 L4 Tibialis anterior Dorsiflexion 5/5 5/5 L5 Extensor hallucis Great toe extension 5/5 5/5 S1 Gastrocnemius Plantar flexion 5/5 5/5 Reflexes 1+ bilat biceps, brachioradialis, triceps tr bilat patella, achilles downgoing toes Sensation: diminished vibration and temp in bilat feet Coordination: intact finger nose finger with mild bilat dysmetria consistent with weakness Gait: able to walk a few steps, has significant difficulty getting up from stretcher Labs: Results for orders placed during the hospital encounter of 11/22/10 (from the past 24 hour(s)) POCT GLUCOSE LAB USE ONLY Component Value Range ??? POC Glucose 118 60 - 199 (mg/dL) BASIC METABOLIC PANEL (NON-FASTING) Component Value Range ??? Glucose Lvl 121 60 - 199 (mg/dL) ??? BUN 14 10 - 20 (mg/dL) ??? Creatinine 0.67 (*) 0.80 - 1.50 (mg/dL) ??? Sodium 137 135 - 145 (mmol/L) ??? Potassium 3.9 3.5 - 5.0 (mmol/L) ??? Chloride 102 98 - 107 (mmol/L) ??? CO2 28 22 - 31 (mmol/L) ??? Anion Gap 7 5 - 15 (mmol/L) ??? Calcium 9.1 8.5 - 10.5 (mg/dL) ? ? Estimated GFR >60 >=60 POCT GLUCOSE LAB USE ONLY Component Value Range ??? POC Glucose 120 60 - 199 (mg/dL) POCT GLUCOSE LAB USE ONLY Component Value Range ??? POC Glucose 125 60 - 199 (mg/dL) POCT GLUCOSE LAB USE ONLY Component Value Range ??? 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 Etiology remains elusive , as paraneoplastic panel and mitochondrial mutations have not been found. Statin induced myopathy remains a possibility as this can be recurrent despite discontinuation of statin. Patient had a great response to IVIg last year, will repeat this as well as hydrate, close monitor for respiratory status, and monitor cpks. Plan: - ivig 4 day course - will contact Dr. 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 I have reviewed the resident's history during the visit and I agree with the details as written. My physical examination confirms the resident'sfindings. The assessment and plan were formulated in discussion with me at the time of the visit Shayan agree with them as documented. Pertinent History: Feels stronger after start of IVIG. Pertinent Exam: Mentally clear, speech normal .Strength 5-/5. Gait slightly ataxic. Pertinent Diagnostic Studies: None Major issues addressed and Plan: Inflammatory myopathy definitely improving with IVIG. I still do not really have a good diagnostic handle here, but will complete IVIG Rx and discharge tomorrow. F/U in [place]. Monthly pulses of IVIG can be considered. Cathy Flores PT - 11/23/2010 2:40 PM EDT Physical Therapy Evaluation Patient profile: Patient is a 50 y.o. male of Wilfred Garcia MD, admitted on 11/22/2010 with necrotizing myopathy 2/2 statins PMH: Past Medical History Diagnosis Date ??? Diabetes ??? Hypertension ??? Hyperlipidemia ??? Gout ??? Obesity ??? Kidney stone ??? 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 Shingles Past Surgical History Procedure Date ??? Abdominal hernia repair 1980s ??? Ureter stent placement renal stent Interval History: No resolved problems to display. Active Hospital Problems Diagnoses ??? 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 Pt has been followed by a local PT in the past. He is right next door to my house. Objective: Total time spent with patient: 52 minutes evaluation Total timed interventions: 0 minutes Pain: chronic back pain rated at 3/10 during the eval but can vary to as high as 9/10 with no consistent trigger identified Vital Signs: Pt on RA at time of eval ?? 02 Sat: 96% HR: 83 Mental Status/Behavior: Pt status: alert, coop, able to follow instructions Strength/ROM: Proximal weakness, LE strength 3-3+/5, Skin/sensation: LE edema, pt uses compression stockings at home but is not convinced that they help him, Pt reported tingling in feet Bed Mobility: Sit >supine without assistance Supine>sit with min mark. Pt states he uses the corner of his mattress at home to help pull himself up to sitting Pt report increasing difficulty rolling side to side. Pt used bedside rail to mark with rolling Transfers: Sit <-> Stand: contact guard to supervision using no assistive device. Gait: Distance: 150' Device: pt pushed IV pole Assist level:contact guard to supervision Gait pattern:increased Stance width with increased lateral drop; increased ER (R) foot Pt. to utilize IV pole and contact guard for ambulation with nursing. Balance: Sitting: Pt able to maintain unsupported sitting balance EOB, able to recover from sway when donning socks and shoes ?? Standing: Pt req 2 handed mark to maintain standing balance when first amb but able to use only 1 hand support after increased distance amb Education: patient have been educated on Exercise, Safety and Role of therapy and demonstrates understanding. Patient status, treatment, and mobility recommendations discussed with nursing. Assessment: Recommend pt resume outpt PT when first disch to improve extremity strengthening, activity izabel. Goals: To be achieved by November 25, 2010. 1. Pt. to demonstrate appropriate exercises with cueing 2. supervision with bed mobility. 3. supervision with sit <-> stand transfers utilizing a no assistive device. 4. Pt. to ambulate household distances with supervision and least restrictive mark dev 5. Pt. to ambulate up/down 4 step/stairs with minimal assist, using two railings. Plan: Pt to be seen 2-5 times per week for therapy including Bed mobility, Transfers, Stairs, Exercise andGait . Discharge Recommendations: Patient would benefit from continued therapeutic interventions 2-3 times a week as provided in a home environment to progress toward functional goals. Pager:[phone] CATHY FLORES, PT 11/23/2010 Physical Therapy Rehabilitation Department Isabell Villatoro OT - 11/23/2010 11:58 AM EDT Occupational Therapy Evaluation Patient profile: Patient is a 50 y.o. male of Wilfred Garcia MD, admitted on 11/22/2010 with necrotizing myopathy previously treated with IVIg, steroids and now on MTX with a re-occurrence of symptoms over the past two months. Patient Active Problem List Diagnoses Code ??? Weakness generalized 780.79G ??? Myopathy 359.9U ??? Dysphagia, unspecified 787.20 Past Surgical History Procedure Date ??? Abdominal hernia repair ??? Ureter stent placement renal stent Social History: Patient lives with their spouse in 1-story house/ trailer, ramped. Has bars next to toilet. Uses cane occasionally. Has bottom turning lathe turner and sock aid. Had OT home assessment last fall. Baseline ADL/Mobility: independent with increased time. Has a cane if needed. 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 Has to climb stairs at work. Able to drive short distances. Precautions/Special Considerations: fall Subjective: I can drive short distances Objective: Seen today for OT evaluation. Cognitive Status/Behavior: alert, oriented to person, place, and time Vision & Perception: reading glasses Range of motion, strength, coordination: Hand dominance: right Bilateral UEs: functional. >90 degrees awkward, requires effort. States has difficulty holding objects, such as milk carton and pouring. LE limitations:functional Sensation: within normal limits in hands. Tingling in b/l feet. Activities of Daily Living: Self-feeding: not assessed. Do not anticipate any difficulty. Upper body self care: set up Lower body self care: Level of assistance: independent with increased time to don pants, socks and shoes. Easier L side than R side. Completed: EOB Adaptive equipment/techniques: none. Does have bottom turning lathe turner and sock aid at home, though reports hasn't been using for dressing. Toileting: Toilet Transfer: Level of assistance: independent with urinal Toilet Hygiene: Level of assistance: independent. Functional Mobility: Supine to sit:min assist with increased time with HOB flat Sit to stand: supervision Ambulation: supervision with unilateral support on IV pole Stand to sit: supervision Sit to supine: independent with increased time Balance: Sitting balance: Static: good Dynamic: good Standing balance: Static: good Dynamic: fair+ Endurance: Information taken from last recorded vitals in flowsheet. Last value Range last 8 hrs Heart Rate Heart Rate: 68 Heart Rate: [68] Blood Pressure BP: 137/82 mmHg BP: (122-137)/(59-82) SpO2 SpO2: 96 % SpO2: [96 %] Pt tolerated well. After mobility: O2 95-97; HR 80s to low 90s Pain: At rest: 3 on a scale of 1 - 10 Location:low back With activity: 3 on a scale of 1 - 10 Location: low back Has chronic low back pain which can be 9/10 without any trigger. Coping: very pleasant, no apparent distress Skin: Not assessed Informed Consent: The patient agrees to and understands the OT treatment plan and goals. Education: patient have been educated on Role of occupational therapy/rehabilitation, Transfers, ADL, Safety and Functional Mobility and verbalizes and demonstrates understanding. Patient status, treatment, and mobility recommendations discussed with nursing. Assessment: Pt admitted for re-occurrence of symptoms past several months of necrotizing myopathy. Has had increased LE weakness, difficulty with transfers, climbing stairs. Able to perform LE dressingsitting EOB with increased time and effort. Had a home OT assessment last fall. Pt would benefit from ongoing OT services to maximize functional independence. Recommendations: Equipment needs at discharge: none at this time. Discharge Recommendations: At this time do not anticipate need for follow up OT services. Goals: To be achieved by November 30:. 1. Patient will stand at the sink for 2-3 lt hygiene tasks. 2. Patient to perform light beverage retrieval with supervision. 3. Patient will ambulate independently to the bathroom with least restrictive device. Plan: Pt to be seen 1-2 sessions for therapy including Transfers, Positioning, Functional Mobility, Activity pacing/Energy conservation and Home Management. 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 Interval History/Subjective: - No events overnight - Feels stronger this am Relevant Meds: ??? atenolol 100 mg Oral Daily ??? folic acid 1 mg Oral Daily ??? methotrexate 12.5 mg Oral Weekly ??? pioglitazone 30 mg Oral Daily ??? traMADol 100 mg Oral BID ??? lisinopril 10 mg Oral Daily ??? hydrochlorothiazide 25 mg Oral Daily ??? sodium chloride 0.9 % 5 mL Intravenous Q12H ??? enoxaparin 40 mg Subcutaneous Daily ??? docusate sodium 100 mg Oral BID ??? immune globulin(hum),capr(IGG) 40 g Intravenous Daily ??? immune globulin(hum),capr(IGG) 5 g Intravenous Daily ??? DISCONTD: immune globulin(hum),capr(IGG) 400 mg/kg/dose Intravenous Daily Prn: acetaminophen, bisacodyl, magnesium hydroxide, ondansetron, ondansetron Physical Exam: Vitals: Temp: [36.5 ??C (97.7 ??F)-37.1 ??C (98.8 ??F)] Heart Rate: [66-75] Resp: [14-20] BP: (116-156)/(59-87) SpO2: [96 %-100 %] General: NAD. Nondiaphoretic. HEENT: normocephalic/atraumatic. Oropharynx clear. Neck is supple with FROM. No meningeal signs CV: regular rate/rhythm, no murmurs/rubs/gallops. No carotid bruits ascultated. Pulm: clear to auscultation bilaterally. Abd: soft, ND, NTTP, NABS Back: No spinal deformities or localized signs of inflammation. No saddle anesthesia. Rectal tone isnormal. Extremities: warm and well perfused, no edema Neuro: Neuro exam: MSE: alert, oriented to person, place, time, situation, follows simple and complex commands, speech fluent with mild hypophonia, able to repeat a sentence, names objects. CN: PERRL, no nystagmus, EOMI, facial sensation intact, nasolabial flattening on the left, tongue protrudes midline, uvula and palate elevate symmetrically, trap symmetric strength bilaterally Segment Muscle Action Right Left C5 Deltoids Biceps Shoulder abduction Elbow flexion 4+/5 4+/5 C6 Extensor carpi radialis Wrist extension 5/5 5/5 C7 Triceps Elbow extension 5/5 5/5 C8, T1 Hand intrinsics Thumb abduction (rad) Finger flexion/battalion fire chief (med) Interosseous (ulnar) 5/5 5/5 L2 Iliopsoas Hip flexion 3/5 3/5 L3 Quadriceps Knee extension 4/5 4/5 L5-S2 Biceps femoris Knee flexion 4/5 4/5 L4 Tibialis anterior Dorsiflexion 5/5 5/5 L5 Extensor hallucis Great toe extension 5/5 5/5 S1 Gastrocnemius Plantar flexion 5/5 5/5 Reflexes 1+ bilat biceps, brachioradialis, triceps tr bilat patella, achilles downgoing toes Sensation: diminished vibration and temp in bilat feet Coordination: intact finger nose finger with mild bilat dysmetria consistent with weakness Gait: able to walk a few steps, has significant difficulty getting up from stretcher Labs: Results for orders placed during the hospital encounter of 11/22/10 (from the past 24 hour(s)) CK Component Value Range ??? CK, Total 6896 (*) 0 - 200 (unit/L) CBC (WITH DIFF) Component Value Range ??? WBC 7.1 4.0 - 10.0 (x10(3)/mcL) ??? RBC 4.13 (*) 4.63 - 6.08 (x10(6)/mcL) ??? Hemoglobin 11.6 (*) 13.7 - 17.5 (gm/dL) ??? Hematocrit 37.1 (*) 40.0 - 51.0 (%) ??? MCV 89.8 79.0 - 92.0 (fL) ??? MCH 28.1 25.6 - 32.2 (pg) ??? MCHC 31.3 (*) 32.0 - 36.5 (gm/dL) ??? Platelets 330 145 - 370 (x10(3)/mcL) ??? RDWSD 50.6 (*) 35.0 - 46.0 (fL) ??? RDWCV 16.1 (*) 10.9 - 14.4 (%) ??? MPV 10.2 9.0 - 12.0 (fL) BASIC METABOLIC PANEL (NON-FASTING) Component Value Range ??? Glucose Lvl 134 60 - 199 (mg/dL) ??? BUN 14 10 - 20 (mg/dL) ??? Creatinine 0.57 (*) 0.80 - 1.50 (mg/dL) ??? Sodium 140 135 - 145 (mmol/L) ??? Potassium 4.3 3.5 - 5.0 (mmol/L) ??? Chloride 102 98 - 107 (mmol/L) ??? CO2 27 22 - 31 (mmol/L) ??? Anion Gap 11 5 - 15 (mmol/L) ??? Calcium 9.4 8.5 - 10.5 (mg/dL) ? ? Estimated GFR >60 >=60 MAGNESIUM Component Value Range ??? Magnesium 0.71 0.69 - 1.07 (mmol/L) PHOSPHORUS Component Value Range ??? Phosphorus 3.9 2.5 - 4.5 (mg/dL) REFLEX LAB-A-DIFF Component Value Range ??? Neutrophils % 63.0 34.0 - 71.0 (%) ??? Neutr Abs (ANC) 4.48 1.50 - 6.30 (x10(3)/mcL) ??? Lymphocytes % 24.2 19.0 - 53.0 (%) ??? Lymphocytes Abs 1.7 1.0 - 3.6 (x10(3)/mcL) ??? Monocytes % 7.3 4.0 - 13.0 (%) ??? Monocyte Abs 0.5 0.2 - 1.0 (x10(3)/mcL) ??? Eosinophils % 4.5 0.0 - 7.0 (%) ??? Eosinophils Abs 0.3 0.0 - 0.5 (x10(3)/mcL) ??? Basophils % 0.7 0.0 - 2.0 (%) ??? Basophils Abs 0.1 0.0 - 0.2 (x10(3)/mcL) ??? Immature Gran % 0.30 0.00 - 0.66 (%) ??? Tamara Gran Abs 0.02 0.00 - 0.05 (x10(3)/mcL) POCT GLUCOSE LAB USE ONLY Component Value Range ??? POC Glucose 105 60 - 199 (mg/dL) POCT GLUCOSE LAB USE ONLY Component Value Range ??? POC Glucose 114 60 - 199 (mg/dL) POCT GLUCOSE LAB USE ONLY Component Value Range ??? 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 Etiology remains elusive , as paraneoplastic panel and mitochondrial mutations have not been found and it would be unusual for statin myopathy to continue long after cessation of treatment. Patient had a great response to IVIg last year, will repeat this as well as hydrate, close monitor for respiratory status, and monitor cpks. 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 I have reviewed the resident's history during the visit and I agree with the details as written. My physical examination confirms the resident'sfindings. The assessment and plan were formulated in discussion with me at the time of the visit Shayan agree with them as documented. Pertinent History: Feels stronger after start of IVIG Pertinent Exam: Mentally clear, speech normal .Strength 5-/5. ait slightly ataxic. 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 I do not really have a good diagnostic handlehere, but will not w/u aggressively as he is followed mostly in [place]. documented in this encounter H&P Notes Wilfred Nelson MD - 11/22/2010 11:18 AM EDT Cc: worsening weakness HPI: Bucky Acevedo is a 50 y.o. 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 Patient's sx began in late 2008 with pain in his back and RLE and progressive weakness with walking, especially up stairs. Mr. Acevedo first came to the attention of the neurology department in Jun 2009 with progressive muscle weakness and found to have myopathy with elevated CK in the 5000s. He had been on Lipitor for about nine years, he stated he was on 100 mg. A muscle biopsy was performed which revealed myopathy but no clear etiology was determined. He also was seen by Dr. Castro in rheumatology. He was then followed by Dr. Marie in [facility] and his pathology slides where review by a Dr. Ricardo on [place]. He felt that the slides were consistent with necrotizing myopathy. A paraneoplastic work-up was recommended, which he did have at the time of presentation [place] [facility] and it was negative. Mr. Acevedo has recovered from being bed bound to ambulating without an assistive device over the course of the year. He was treated with a course of IVIg 1gram/kg x 2 days and prednisone. He was tapered off but prior to his f/uwith Dr. Marie he discontinued it entirely in August 2009. When seen in September [address] Marie, patient complained of increasing weakness and his CK was 3287. At that time he was started on methotrexate and is currently on 12.5 mg every . For the last few months the patient reports worsening sx. His voice is more raspy, he is short of breath when he exerts himself, and he can not carry anything including a small trash bag. He can not walk up stairs. He has constant low back pain for which he takes tramadol and tylenol. He presents [place] [facility] [place]. Past Medical History Diagnosis Date ??? Diabetes ??? Hypertension ??? Hyperlipidemia ??? Gout ??? Obesity ??? Kidney stone ??? 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 Shingles Family History Problem Relation Age of Onset ??? Colon Cancer Mother ??? Diabetes Mother ??? Heart Attack Father first [place] at 36 ??? Coronary Art Dis Father [...] Concern ??? 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 Current outpatient prescriptions ordered prior to encounter Medication Sig Dispense Refill ??? folic acid [...] mg per tablet 1 Tablet(s), PO, Oncedaily Review of systems: Constitutional: No fevers or [...] [x] Review of systems otherwise negative Objective: Patient Vitals in the past 8 hrs: BP Temp Temp src Pulse Resp SpO2 Weight 11/22/10 1122 156/87 mmHg 36.5 ??C (97.7 ??F) Oral 66 14 99 % 112.038 kg (247 lb) General: alert, NAD HEENT: oral mucosa moist, no thrush, no carotid bruits, no thyromegaly, no lymphadenopathy Heart: RRR S1S2 no murmur Lungs: CTAB symmetric expansion Abd: soft, nontender, nondistended Ext: mild nonpitting edema, adequate pulses Neuro exam: MSE: alert, oriented to person, place, time, situation, follows simple and complex commands, speechfluent with mild hypophonia, able to repeat a sentence, names objects. CN: PERRL, no nystagmus, EOMI, facial sensation intact, nasolabial flattening on the left, tongue protrudes midline, uvula and palate elevate symmetrically, trap symmetric strength bilaterally Segment Muscle Action Right Left C5 Deltoids Biceps Shoulder abduction Elbow flexion 4+/5 4+/5 C6 Extensor carpi radialis Wrist extension 5/5 5/5 C7 Triceps Elbow extension 5/5 5/5 C8, T1 Hand intrinsics Thumb abduction (rad) Finger flexion/battalion fire chief (med) Interosseous (ulnar) 5/5 5/5 L2 Iliopsoas Hip flexion 3/5 3/5 L3 Quadriceps Knee extension 4/5 4/5 L5-S2 Biceps femoris Knee flexion 4/5 4/5 L4 Tibialis anterior Dorsiflexion 5/5 5/5 L5 Extensor hallucis Great toe extension 5/5 5/5 S1 Gastrocnemius Plantar flexion 5/5 5/5 Reflexes 1+ bilat biceps, brachioradialis, triceps tr bilat patella, achilles downgoing toes Sensation: diminished vibration and temp in bilat feet Coordination: intact finger nose finger with mild bilat dysmetria consistent with weakness Gait: able to walk a few steps, has significant difficulty getting up from stretcher Labs: CK 11/01/10: 5431 TPMT enzyme activity 08/2009 normal Myositis Antibody Panel Plus 06/2009 negative (anti-Kiesha, PM/SCL, AK-2, PL-7, PL- 12, EJ, OJ KU, U2 SN WEBSPHERE COMMERCE DEVELOPER, SRP) mitochondrial mutations: Absence of all screened point mtDNA mutations and deletions associated with neuromuscular disorders. 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 Etiology remains elusive, as paraneoplastic panel and mitochondrial mutations have not been found and it would be unusual for statin myopathy to continue long after cessation of treatment. Patient had a great response to IVIg last year, will repeatthis as well as hydrate, close monitor for respiratory status, and monitor cpks. 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 I have reviewed the resident's history during the visit and I agree with the details as written. My physical examination confirms the resident'sfindings. The assessment and plan were formulated in discussion with me at the time of the visit Shayan agree with them as documented. Pertinent History: Patient with worsening weakness secondary to inflammatory myopathy. No etiology or underlying disorder found. Pertinent Exam: Mentally clear, speech normal. Strength 5-/45 right, 4/5 left. Pertinent Diagnostic Studies: Elevated CPK. Major issues addressed and Plan: Worsening myositis/myopathy. Agree with plan to admit for IVIG. Oracio solano-consult with rheumatology. Continue IVIG for now. Re-consult rheumatology. documented in this encounter ED Notes Sigrid Leach RN - 11/22/2010 4:00 PM EDT Pt. Placed on a regular hospital bed for comfort and admission. No change in initial assessment.. Pop Parker SLP - 11/22/2010 2:13 PM EDT Speech-Language Pathology Bedside Swallow Evaluation 11/22/2010 2:13 PM 1960 Total Treatment Time: 31 min.eval. Total Timed Code Treatment: 0 min. Hospital Course: Order received. Pt. is a Bucky Acevedo is a 50 y.o. male admitted on [...] any questions or concerns. Pop Parker MS, CCC-SHOWROOM CONSULTANT Inpatient Rehabilitation Medicine Pager: # [phone] Sigrid Leach RN - 11/22/2010 2:00 PM EDT Speech therapist in to evaluate pt. Pt eating lunch and tolerating well. Sharon White RN - 11/22/2010 1:54 PM EDT Office of Care Management (OCM) / Clinical Sanitary Engineering Teacher (CRC)ED Initial Assessment. Reviewed record and interviewed patient. Introduced/reviewed CRC role and services accepted. REASON for HOSPITALIZATION: Pt came [place] [facility] with concerns of an increase in his extremity weakness. Pt is being followed her by Neurology, Dr. Almanza for his weakness with unknown etiology; see ED note. Pt is also followed by a Dr Marie, Neurologist, at [facility] in [place]. Pt described to me having problems being able to handle stairs, having increase pain in his legs and back. Plan is to admit pt to Neuro services; start IVIG. Pt presently has IVF infusing; waiting for in pt bed. PREVIOUS FUNCTIONAL STATUS : Independent CURRENT FUNCTIONAL STATUS: reported that pt needs assistance with stairs/driving/preparing meals. SOCIAL/FAMILY SUPPORTS: Lives with his Bethanie in a home located in [place], [place] Couple has four adult sons; one lives close by, three live in the [facility] area. 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 Pt has been at this job for eight years. ADVANCE DIRECTIVES: Does not have; is interested and knows to how to obtain the [place] AD forms. INSURANCE COVERAGE / FINANCIAL ISSUES: [employer]. Bethanie has been talking weekly with an [employer] pillowcase cutter about pt's continuing medical needs. CURRENT HOME/COMMUNITY SERVICES/EQUIPMENT: No services. Pt was able to obtain a FWW through the [employer] when needed last year. POTENTIAL DISCHARGE NEEDS: Potential for DME needs. Anticipate no other needs at this time. Pt's Bethanie is of great support. TRANSPORTATION: via car. PLAN: Will continue to monitor progress, follow for continuity of care and assist with discharge planning while hospitalized ED BRITTNEE White RN, pager [phone] Barb Mckee RN - 11/22/2010 12:03 PM EDT Pt with history of Lipitor allergy that caused muscle weakness, presents now with increasing weakness x 2 months. Patient is able to walk. Strength equal to all extremities. Patient is here to see neurology and continue treatments. Neuro presently at bedside. Barb Mckee RN - 11/22/2010 12:01 PM EDT documented in this encounter Miscellaneous Notes Discharge Summary - Marino East MD - 11/25/2010 12:46 PM EDT Patient Name: Bucky Acevedo : 1960 Admit Date: 11/22/2010 Primary Diagnosis: 1. Inflammatory myopathy Past Medical History: Past Medical History Diagnosis Date ??? Diabetes ??? Hypertension ??? Hyperlipidemia ??? Gout ??? Obesity ??? Kidney stone ??? 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 Shingles History of Presentation: Bucky Acevedo is a 50 y.o. 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 Patient's sx began in late 2008 with pain in his back and RLE and progressive weakness with walking, especially up stairs. Mr. Acevedo first came to the attention of the neurology department in Jun 2009 with progressive muscle weakness and found to have myopathy with elevated CK in the 5000s. He had been on Lipitor for about nine years, he stated he was on 100 mg. A muscle biopsy was performed which revealed myopathy but no clear etiology was determined. He also was seen by Dr. Castro in rheumatology. He was then followed by Dr. Marie in [facility] and his pathology slides where review by a Dr. Ricardo on [place]. He felt that the slides were consistent with necrotizing myopathy. A paraneoplastic work-up was recommended, which he did have at the time of presentation [place] [facility] and it was negative. Mr. Acevedo has recovered from being bed bound to ambulating without an assistive device over the course of the year. He was treated with a course of IVIg 1gram/kg x 2 days and prednisone. He was tapered off but prior to his f/uwith Dr. Marie he discontinued it entirely in August 2009. When seen in September [address] Marie, patient complained of increasing weakness and his CK was 3287. At that time he was started on methotrexate and is currently on 12.5 mg every . For the last few months the patient reports worsening sx. His voice is more raspy, he is short of breath when he exerts himself, and he can not carry anything including a small trash bag. He can not walk up stairs. He has constant low back pain for which he takes tramadol and tylenol. He presents [place] [facility] [place]. Physical Exam at Admission: Patient Vitals in the past 8 hrs: BP Temp Temp src Pulse Resp SpO2 Weight 11/22/10 1122 156/87 mmHg 36.5 ??C (97.7 ??F) Oral 66 14 99 % 112.038 kg (247 lb) General: alert, NAD HEENT: oral mucosa moist, no thrush, no carotid bruits, no thyromegaly, no lymphadenopathy Heart: RRR S1S2 no murmur Lungs: CTAB symmetric expansion Abd: soft, nontender, nondistended Ext: mild nonpitting edema, adequate pulses Neuro exam: MSE: alert, oriented to person, place, time, situation, follows simple and complex commands, speech fluent with mild hypophonia, able to repeat a sentence, names objects. CN: PERRL, no nystagmus, EOMI, facial sensation intact, nasolabial flattening on the left, tongue protrudes midline, uvula and palate elevate symmetrically, trap symmetric strength bilaterally Segment Muscle Action Right Left C5 Deltoids Biceps Shoulder abduction Elbow flexion 4+/5 4+/5 C6 Extensor carpi radialis Wrist extension 5/5 5/5 C7 Triceps Elbow extension 5/5 5/5 C8, T1 Hand intrinsics Thumb abduction (rad) Finger flexion/battalion fire chief (med) Interosseous (ulnar) 5/5 5/5 L2 Iliopsoas Hip flexion 3/5 3/5 L3 Quadriceps Knee extension 4/5 4/5 L5-S2 Biceps femoris Knee flexion 4/5 4/5 L4 Tibialis anterior Dorsiflexion 5/5 5/5 L5 Extensor hallucis Great toe extension 5/5 5/5 S1 Gastrocnemius Plantar flexion 5/5 5/5 Reflexes 1+ bilat biceps, brachioradialis, triceps tr bilat patella, achilles downgoing toes Sensation: diminished vibration and temp in bilat feet Coordination: intact finger nose finger with mild bilat dysmetria consistent with weakness Gait: able to walk a few steps, has significant difficulty getting up from stretcher Operations & Procedures: none Consultations: 1. PT/OT/SHOWROOM CONSULTANT Hospital Course: Bucky Acevedo was admitted to the neurology service for further evaluation of necrotizing myopathy with a re-occurrence of symptoms over the past two months. Etiology remains elusive , as paraneoplastic panel and mitochondrial mutations have not been found. Statin induced myopathy remains a possibility as this can be recurrent despite discontinuation of statin. Patient had a great response to IVIglast year, so he was subsequently started on a 4 day course of IVIg. He tolerated this well. Subjectively, he felt that his strength improved during the hospital admission. He worked with rehabilitation medicine while he was an inpatient. He was discharged home in stable condition, with followup arranged with his outpatient provider, Dr. Marie, as well as in our neurology clinic Important Lab Data: TPMT enzyme activity 08/2009 normal Myositis Antibody Panel Plus 06/2009 negative (anti-Kiesha, PM/SCL, AK-2, PL-7, PL- 12, EJ, OJ KU, U2 SN WEBSPHERE COMMERCE DEVELOPER, SRP) mitochondrial mutations: Absence of all screened point mtDNA mutations and deletions associated with neuromuscular disorders. CK on admission: 6896 Recent Results (from the past 72 hour(s)) CK Component Value Range ??? CK, Total 6896 (*) 0 - 200 (unit/L) CBC (WITH DIFF) Component Value Range ??? WBC 7.1 4.0 - 10.0 (x10(3)/mcL) ??? RBC 4.13 (*) 4.63 - 6.08 (x10(6)/mcL) ??? Hemoglobin 11.6 (*) 13.7 - 17.5 (gm/dL) ??? Hematocrit 37.1 (*) 40.0 - 51.0 (%) ??? MCV 89.8 79.0 - 92.0 (fL) ??? MCH 28.1 25.6 - 32.2 (pg) ??? MCHC 31.3 (*) 32.0 - 36.5 (gm/dL) ??? Platelets 330 145 - 370 (x10(3)/mcL) ??? RDWSD 50.6 (*) 35.0 - 46.0 (fL) ??? RDWCV 16.1 (*) 10.9 - 14.4 (%) ??? MPV 10.2 9.0 - 12.0 (fL) BASIC METABOLIC PANEL (NON-FASTING) Component Value Range ??? Glucose Lvl 134 60 - 199 (mg/dL) ??? BUN 14 10 - 20 (mg/dL) ??? Creatinine 0.57 (*) 0.80 - 1.50 (mg/dL) ??? Sodium 140 135 - 145 (mmol/L) ??? Potassium 4.3 3.5 - 5.0 (mmol/L) ??? Chloride 102 98 - 107 (mmol/L) ??? CO2 27 22 - 31 (mmol/L) ??? Anion Gap 11 5 - 15 (mmol/L) ??? Calcium 9.4 8.5 - 10.5 (mg/dL) ? ? Estimated GFR >60 >=60 MAGNESIUM Component Value Range ??? Magnesium 0.71 0.69 - 1.07 (mmol/L) PHOSPHORUS Component Value Range ??? Phosphorus 3.9 2.5 - 4.5 (mg/dL) REFLEX LAB-A-DIFF Component Value Range ??? Neutrophils % 63.0 34.0 - 71.0 (%) ??? Neutr Abs (ANC) 4.48 1.50 - 6.30 (x10(3)/mcL) ??? Lymphocytes % 24.2 19.0 - 53.0 (%) ??? Lymphocytes Abs 1.7 1.0 - 3.6 (x10(3)/mcL) ??? Monocytes % 7.3 4.0 - 13.0 (%) ??? Monocyte Abs 0.5 0.2 - 1.0 (x10(3)/mcL) ??? Eosinophils % 4.5 0.0 - 7.0 (%) ??? Eosinophils Abs 0.3 0.0 - 0.5 (x10(3)/mcL) ??? Basophils % 0.7 0.0 - 2.0 (%) ??? Basophils Abs 0.1 0.0 - 0.2 (x10(3)/mcL) ??? Immature Gran % 0.30 0.00 - 0.66 (%) ??? Tamara Gran Abs 0.02 0.00 - 0.05 (x10(3)/mcL) POCT GLUCOSE LAB USE ONLY Component Value Range ??? POC Glucose 105 60 - 199 (mg/dL) POCT GLUCOSE LAB USE ONLY Component Value Range ??? POC Glucose 114 60 - 199 (mg/dL) POCT GLUCOSE LAB USE ONLY Component Value Range ??? POC Glucose 131 60 - 199 (mg/dL) POCT GLUCOSE LAB USE ONLY Component Value Range ??? POC Glucose 118 60 - 199 (mg/dL) BASIC METABOLIC PANEL (NON-FASTING) Component Value Range ??? Glucose Lvl 121 60 - 199 (mg/dL) ??? BUN 14 10 - 20 (mg/dL) ??? Creatinine 0.67 (*) 0.80 - 1.50 (mg/dL) ??? Sodium 137 135 - 145 (mmol/L) ??? Potassium 3.9 3.5 - 5.0 (mmol/L) ??? Chloride 102 98 - 107 (mmol/L) ??? CO2 28 22 - 31 (mmol/L) ??? Anion Gap 7 5 - 15 (mmol/L) ??? Calcium 9.1 8.5 - 10.5 (mg/dL) ? ? Estimated GFR >60 >=60 POCT GLUCOSE LAB USE ONLY Component Value Range ??? POC Glucose 120 60 - 199 (mg/dL) POCT GLUCOSE LAB USE ONLY Component Value Range ??? POC Glucose 125 60 - 199 (mg/dL) POCT GLUCOSE LAB USE ONLY Component Value Range ??? POC Glucose 129 60 - 199 (mg/dL) POCT GLUCOSE LAB USE ONLY Component Value Range ??? POC Glucose 115 60 - 199 (mg/dL) BASIC METABOLIC PANEL (NON-FASTING) Component Value Range ??? Glucose Lvl 106 60 - 199 (mg/dL) ??? BUN 17 10 - 20 (mg/dL) ??? Creatinine 0.69 (*) 0.80 - 1.50 (mg/dL) ??? Sodium 135 135 - 145 (mmol/L) ??? Potassium 3.9 3.5 - 5.0 (mmol/L) ??? Chloride 101 98 - 107 (mmol/L) ??? CO2 26 22 - 31 (mmol/L) ??? Anion Gap 8 5 - 15 (mmol/L) ??? Calcium 9.0 8.5 - 10.5 (mg/dL) ? ? Estimated GFR >60 >=60 Lab results pending at discharge: none Condition at Discharge: Blood pressure 107/72, pulse 60, temperature 36.6 ??C (97.9 ??F), temperature source Oral, resp. rate 18, height 1.752 m (5' 8.98), weight 112.038 kg (247 lb), SpO2 97.00%. Neuro exam: MSE: alert and oriented. Follows simple and complex commands. Speech fluent with mild hypophonia, able to repeat a sentence, names objects. CN: PERRL, no nystagmus, EOMI, facial sensation intact, face symmetric, tongue protrudes midline, uvula and palate elevate symmetrically, trap symmetric strength bilaterally Segment Muscle Action Right Left C5 Deltoids Biceps Shoulder abduction Elbow flexion 5-/5 5-/5 C6 Extensor carpi radialis Wrist extension 5/5 5/5 C7 Triceps Elbow extension 5/5 5/5 C8, T1 Hand intrinsics Thumb abduction (rad) Finger flexion/battalion fire chief (med) Interosseous (ulnar) 5/5 5/5 L2 Iliopsoas Hip flexion 4/5 4/5 L3 Quadriceps Knee extension 4+/5 4+/5 L5-S2 Biceps femoris Knee flexion 5/5 5/5 L4 Tibialis anterior Dorsiflexion 5/5 5/5 L5 Extensor hallucis Great toe extension 5/5 5/5 S1 Gastrocnemius Plantar flexion 5/5 5/5 Reflexes 1+ bilat biceps, brachioradialis, triceps tr bilat patella, achilles downgoing toes Sensation: diminished vibration and temp in bilat feet Coordination: improved dysmetria with FNF bilaterally Gait: Able to arise from bed without assistance. Patient is being discharged to: home Medications at Discharge: Not reviewed [employer]PER[employer] DEPARTMENT meds Medication Sig Dispense Refill ??? folic acid [...] mg per tablet 1 Tablet(s), PO, Oncedaily Changes to Medication Regimen: None ADR/ALLERGIES: Allergies Allergen Reactions ??? [id number]-meg Reductase Inhibitors Myopathy Primary Care Provider: SAMANTHA BAER MD Recommendations for Primary Care Provider for Follow-up: Monitor CK levels Patient Instructions: Call your doctor or seek medical attention if you have increasing weakness or numbness, fever Diet: we recommend a heart healthy diet: low fat, low cholesterol, low concentrated sweets. Activity Restrictions: as tolerated Follow-up: 1. Neurology: You will have a follow-up appointment in the neurology clinic at [facility] with Dr. David on May 24 at 3:00 pm. You will be called with a time/date for thisappointment. Please keep your follow-up appointment with Dr. Marie in [place] in December. 2. Primary Care Provider: Please follow up with your Primary Care Provider as recommended above. Please call his/her office at the number listed above to schedule an appointment. For questions regarding this document or issues relating to this hospitalization on the Neurology Service, please contact the author(s) of this discharge summary through the [facility] Export Agent . Discussed at length with patient; I supervised Dr Leyla East MD Med Student Progress Note - Karoline Fuentes - 11/22/2010 3:40 PM EDT Neurology Inpatient Progress Note Attending: Omar Date of Admission: 11/22 Patient ID: Bucky Acevedo is a 50 year-old M with presumed statin-induced necrotizing myopathy who presents with worsening weakness. He began having RLE weakness, proximal muscle weakness, and back pain in 2008. Weakness associated with elevated CKs (~5000) and muscle biopsy consistent with necrotizing process. Pt was on 100 mg dose of Lipitor for 9 years. He received 2 day course of IVIG and prednisone in August 2009. His weakness improved, but in September 2010 had increasing weakness and was started on Methotrexate 12.5 mg per week. Worsening symptoms include hoarseness of speech, shortness of breath with exertion, and unable to carry things that he previously was able to. He is unable to walk up stairs. He has constant back pain that he treats with Tramadol and Tylenol. Interval Hx: Patient received one dose of IVIg yesterday and feels stronger than at admission. He isnot in pain except for his low back pain that is currently out of control. PT and OT saw him this morning, advised him to continue his home exercises. ??? atenolol 100 mg Oral Daily ??? folic acid 1 mg Oral Daily ??? methotrexate 12.5 mg Oral Weekly ??? pioglitazone 30 mg Oral Daily ??? traMADol 100 mg Oral BID ??? lisinopril 10 mg Oral Daily ??? hydrochlorothiazide 25 mg Oral Daily ??? sodium chloride 0.9 % 5 mL Intravenous Q12H ??? enoxaparin 40 mg Subcutaneous Daily ??? docusate sodium 100 mg Oral BID ??? immune globulin(hum),capr(IGG) 40 g Intravenous Daily ??? immune globulin(hum),capr(IGG) 5 g Intravenous Daily ??? DISCONTD: immune globulin(hum),capr(IGG) 400 mg/kg/dose Intravenous Daily acetaminophen, bisacodyl, magnesium hydroxide, ondansetron, ondansetron Vitals: Last value Range last 24 hrs Temperature Temp: 36.7 ??C (98.1 ??F) Temp: [36.7 ??C (98.1 ??F)-37.1 ??C (98.8 ??F)] Heart Rate Heart Rate: 68 Heart Rate: [68-75] Blood Pressure BP: 137/82 mmHg BP: (116-141)/(59-82) Respiratory Rate Resp: 20 Resp: [16-20] SpO2 SpO2: 96 % SpO2: [96 %-100 %] PE: Gen: Alert, NAD HEENT: NCAT, neck supple CV: RRR, normal S1 and S2. No murmurs. Pulm: CTAB Neuro: MS: AOx3. Normal speech. CN: EOMI. PERRL. Facial sensation intact. Face symmetric. Tongue and uvula midline. Motor: 5/5 shoulder abductors. 4/5 elbow flexion and extension. 3/5 strength in hip flexors bilaterally. 5/5 knee extension and flexion, ankle extension and flexion. Reflexes: 1+ reflexes in BR, TR, OK bilaterally. Downgoing toes bilaterally. Sensory: Impaired vibratory sensation in both feet below medial malleolus bilaterally. Fine touch intact bilaterally. Coordination: Normal [id number] testing bilaterally. Normal LAURA bilaterally. Gait: Difficulty getting out of chair but able to do this independently. Walks with wide based gaitin waddling fashion, steady but slow independently. Assessment: Mr. 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 Since IVIg improved his condition in 2009 and is the only treatment that has improved his weakness, he will undergo a 2nd course during this hospital stay. He has noticed improvement with one dose given last night. 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 Notably, it has not improved with withdrawal of statin, which has been recorded in theliterature. This diagnosis could be further supported with positive testing for HMGCR antibody. Thiswould not change the management, but a positive result would solidify the diagnosis. Plan: - Continue IVIg for total of 3 day course (2/3 completed) - Continue Atenelol, Lisinopril for CV protection - Continue Folate - Continue Tramadol for back pain - PT/OT Karoline Fuentes, MS III Miscellaneous - Provider, Bernadette - 11/22/2010 2:01 PM EDT ED Triage - Tila Boyd RN - 11/22/2010 11:24 AM EDT Patient here with complaints of weakening of his extremities. Patient has had same problem in the past and received IVIG injections at [place] and lasted about one year. Patient has been having More weakness in the past three weeks and is to see Dr. David. Patient is alert and oriented x 3. No other complaints offered. documented in this encounter Plan of Treatment Upcoming Encounters Date Type Specialty Care Team Description 06/19/2022 Office Visit Rheumatology Richi Blackmon MD [facility] ER [address] RHEUMATOLOGY [place], [place] [address] (Wo rk) Scheduled Procedures Name Priority Associated Diagnoses Date/Time EGD, UPPER GI ENDOSCOPY Family hx of colon cance r COLONOSCOPY, DIAGNOSTIC Family hx of colon cance r documented as of this encounter Procedures Procedure Name Priority Date/Time Associated Comments Diagnosis BASIC METABOLIC Routine 11/25/2010 12:39 PM Resul ts for this PANEL (NON-FASTING) EDT procedur e are in the results section. POCT GLUCOSE Routine 11/25/2010 11:55 AM Results for this EDT procedure are i n the results section. POCT GLUCOSE Routine 11/25/2010 7:08 AM Results f or this EDT procedure are i n the results section. POCT GLUCOSE Routine 11/24/2010 9:05 PM Results f or this EDT procedure are i n the results section. POCT GLUCOSE Routine 11/24/2010 4:46 PM Results f or this EDT procedure are i n the results section. CK Routine 11/24/2010 11:57 AM Results for this EDT procedure are i n the results section. BASIC METABOLIC Routine 11/24/2010 11:57 AM Resul ts for this PANEL (NON-FASTING) EDT procedur e are in the results section. POCT GLUCOSE Routine 11/24/2010 11:18 AM Results for this EDT procedure are i n the results section. POCT GLUCOSE Routine 11/24/2010 6:45 AM Results f or this EDT procedure are i n the results section. POCT GLUCOSE Routine 11/23/2010 9:16 PM Results f or this EDT procedure are i n the results section. POCT GLUCOSE Routine 11/23/2010 4:48 PM Results f or this EDT procedure are i n the results section. BASIC METABOLIC Routine 11/23/2010 12:05 PM Resul ts for this PANEL (NON-FASTING) EDT procedur e are in the results section. POCT GLUCOSE Routine 11/23/2010 12:00 PM Results for this EDT procedure are i n the results section. POCT GLUCOSE Routine 11/23/2010 6:33 AM Results f or this EDT procedure are i n the results section. POCT GLUCOSE Routine 11/22/2010 9:04 PM Results f or this EDT procedure are i n the results section. POCT GLUCOSE Routine 11/22/2010 6:39 PM Results f or this EDT procedure are i n the results section. DIFFERENTIAL, Routine 11/22/2010 1:00 PM Results for this AUTOMATED EDT procedure are i n the results section. CBC (WITH DIFF) Routine 11/22/2010 1:00 PM Result s for this EDT procedure are i n the results section. PHOSPHORUS Routine 11/22/2010 1:00 PM Results f or this EDT procedure are i n the results section. MAGNESIUM Routine 11/22/2010 1:00 PM Results f or this EDT procedure are i n the results section. CK Routine 11/22/2010 1:00 PM Results f or this EDT procedure are i n the results section. BASIC METABOLIC Routine 11/22/2010 1:00 PM Result s for this PANEL (NON-FASTING) EDT procedur e are in the results section. documented in this encounter Results (ABNORMAL) Basic metabolic panel (11/25/2010 12:39 PM EDT) P athologist Signature Glucose Lvl 108 60 - 199 CERNER mg/dL [facility] Comment: Diabetes: >=200 mg/dL plus symp toms BUN 19 10 - 20 mg/dL CERNER MILLENNIU M Creatinine 0.75 (L) 0.80 - 1.50 mg/dL CERNER MILL ENNIUM Sodium 134 (L) 135 - 145 mmol/L [...] - 107 mmol/L CERNER MILLENN IUM CO2 26 22 - 31 mmol/L CERNER MILLENNI UM Anion Gap 8 5 - 15 mmol/L CERNER MILLENNIU M Calcium 9.4 8.5 - 10.5 mg/dL CERNER ELISE NIUM Estimated GFR >60 >=60 CERNER MILLENNIU M Comment: The National Kidney Disease Education Pr ogram (NKDEP) has recommended all laboratories report estimated GFR (eGFR) along with plasma creatinine measurements to assist you with recognit ion of early kidney disease. Caveats: ??Plasma creatinine should be a t steady-state (unchanged within the past week). For patient s multiply eGFR by 1.2.MDRD equation has not been validated for pediatric pat ients and is only valid for patients with age >= 18 years. At present, NKDEP does NOT recommend usi ng the MDRD equation for drug dosing purposes and pharmacists should continue to use their current dosing methods. In addition, numerical eGFR values great er than 60 ml/min/1.73 square meters should be treated as > 60, and not an ex act number due to greater inaccuracies at these higher values. Per NKDEP, they classify normal renal function as any GFR >60ml/min/1.73 square meters; chronic kidney disease wh en GFR <60, and renal failure when GFR <15. ??This calculation may not be valid for patients with atypical muscle mass (very lean or obese), acute renal failur e, and in patients with diabetic kidney disease. References: http://nkdep.nih.gov/resources/NKDEP_Sug gestn4Labs_0606_508.pdf http://www.kidney.org/professionals/kls/ pdf/faq_gfr.pdf Specimen Anatomical Collection Method Collection Time Receive d Time (Source) Location / / Volume Laterality Blood specimen 11/25/2010 12:39 1 (specimen) PM EDT 12:46 PM EDT Authorizing Provider Result Denise Nelson MD CHEMISTRY ORDERABLES Performing Organization Address City/[facility]/ZIP Code Phon e Number [address] CERNER MILLENNIUM POCT GLUCOSE LAB USE ONLY (11/25/2010 11:55 AM EDT) P athologist Signature POC Glucose 108 60 - 199 CERNER mg/dL [facility] Comment: Supplemental ranges: <110 mg/dL before meals <200 mg/dL all other times of the day Specimen Anatomical Collection Method Collection Time Receive d Time (Source) Location / / Volume Laterality Blood specimen 11/25/2010 11:55 1 (specimen) AM EDT 11:55 AM EDT Authorizing Provider Result Denise Nelson MD POINT OF CARE TEST ORDERABLE S Performing Organization Address City/State/ZIP Code Phon e Number [address] CERNER MILLENNIUM POCT GLUCOSE LAB USE ONLY (11/25/2010 7:08 AM EDT) P athologist Signature POC Glucose 125 60 - 199 CERNER mg/dL [facility] Comment: Supplemental ranges: <110 mg/dL before meals <200 mg/dL all other times of the day Specimen Anatomical Collection Method Collection Time Receive d Time (Source) Location / / Volume Laterality Blood specimen 11/25/2010 7:08 AM 011 7:08 (specimen) EDT AM EDT Authorizing Provider Result Denise Nelson MD POINT OF CARE TEST ORDERABLE S Performing Organization Address City/[facility]/[place]IP [place] [address] CERNER MILLENNIUM POCT GLUCOSE LAB USE ONLY (11/24/2010 9:05 PM EDT) P athologist Signature POC Glucose 126 60 - 199 CERNER mg/dL [facility] Comment: Supplemental ranges: <110 mg/dL before meals <200 mg/dL all other times of the day Specimen Anatomical Collection Method Collection Time Receive d Time (Source) Location / / Volume Laterality Blood specimen 11/24/2010 9:05 PM 011 9:05 (specimen) EDT PM EDT Authorizing Provider Result Denise Nelson MD POINT OF CARE TEST ORDERABLE S Performing Organization Address City/State/[place] [address] CERNER MILLENNIUM POCT GLUCOSE LAB USE ONLY (11/24/2010 4:46 PM EDT) athologist Signature POC Glucose 150 60 - 199 CERNER mg/dL [facility] Comment: Supplemental ranges: <110 mg/dL before meals <200 mg/dL all other times of the day Specimen Anatomical Collection Method Collection Time Receive d Time (Source) Location / / Volume Laterality Blood specimen 11/24/2010 4:46 PM 011 4:46 (specimen) EDT PM EDT Authorizing Provider Result Denise Nelson MD POINT OF CARE TEST ORDERABLE S Performing Organization Address City/[facility]/ZIP Code Phon e Number [address] CERNER MILLENNIUM (ABNORMAL) CK (11/24/2010 11:57 AM EDT) athologist Signature CK, Total 6057 (H) 0 - 200 CERNER unit/L MILLENNIUM Specimen Anatomical Collection Method Collection Time Receive d Time (Source) Location / / Volume Laterality Blood specimen 11/24/2010 11:57 1 (specimen) AM EDT 12:21 PM EDT Authorizing Provider Result Denise Nelson MD CHEMISTRY ORDERABLES Performing Organization Address City/State/ZIP Code Phon e Number [address] CERNER MILLENNIUM (ABNORMAL) Basic metabolic panel (11/24/2010 11:57 AM EDT) athologist Signature Glucose Lvl 106 60 - 199 CERNER mg/dL [facility] Comment: Diabetes: >=200 mg/dL plus symp toms BUN 17 10 - 20 mg/dL CERNER MILLENNIU M Creatinine 0.69 (L) 0.80 - 1.50 mg/dL CERNER MILL ENNIUM Sodium 135 135 - 145 mmol/L CERNER [...] - 107 mmol/L CERNER MILLENN IUM CO2 26 22 - 31 mmol/L CERNER MILLENNI UM Anion Gap 8 5 - 15 mmol/L CERNER MILLENNIU M Calcium 9.0 8.5 - 10.5 mg/dL CERNER ELISE NIUM Estimated GFR >60 >=60 CERNER MILLENNIU M Comment: The National Kidney Disease Education Pr ogram (NKDEP) has recommended all laboratories report estimated GFR (eGFR) along with plasma creatinine measurements to assist you with recognit ion of early kidney disease. Caveats: ??Plasma creatinine should be a t steady-state (unchanged within the past week). For patient s multiply eGFR by 1.2.MDRD equation has not been validated for pediatric pat ients and is only valid for patients with age >= 18 years. At present, NKDEP does NOT recommend usi ng the MDRD equation for drug dosing purposes and pharmacists should continue to use their current dosing methods. In addition, numerical eGFR values great er than 60 ml/min/1.73 square meters should be treated as > 60, and not an ex act number due to greater inaccuracies at these higher values. Per NKDEP, they classify normal renal function as any GFR >60ml/min/1.73 square meters; chronic kidney disease wh en GFR <60, and renal failure when GFR <15. ??This calculation may not be valid for patients with atypical muscle mass (very lean or obese), acute renal failur e, and in patients with diabetic kidney disease. References: http://nkdep.nih.gov/resources/NKDEP_Sug gestn4Labs_0606_508.pdf http://www.kidney.org/professionals/kls/ pdf/faq_gfr.pdf Specimen Anatomical Collection Method Collection Time Receive d Time (Source) Location / / Volume Laterality Blood specimen 11/24/2010 11:57 1 (specimen) AM EDT 12:12 PM EDT Authorizing Provider Result Denise Nelson MD CHEMISTRY ORDERABLES Performing Organization Address City/[facility]/ZIP Code Phon e Number [address] CERNER MILLENNIUM POCT GLUCOSE LAB USE ONLY (11/24/2010 11:18 AM EDT) P athologist Signature POC Glucose 115 60 - 199 CERNER mg/dL [facility] Comment: Supplemental ranges: <110 mg/dL before meals <200 mg/dL all other times of the day Specimen Anatomical Collection Method Collection Time Receive d Time (Source) Location / / Volume Laterality Blood specimen 11/24/2010 11:18 1 (specimen) AM EDT 11:18 AM EDT Authorizing Provider Result Denise Nelson MD POINT OF CARE TEST ORDERABLE S Performing Organization Address City/[facility]/ZIP Code Phon e Number [address] CERNER MILLENNIUM POCT GLUCOSE LAB USE ONLY (11/24/2010 6:45 AM EDT) P athologist Signature POC Glucose 129 60 - 199 CERNER mg/dL [facility] Comment: Supplemental ranges: <110 mg/dL before meals <200 mg/dL all other times of the day Specimen Anatomical Collection Method Collection Time Receive d Time (Source) Location / / Volume Laterality Blood specimen 11/24/2010 6:45 AM 011 6:45 (specimen) EDT AM EDT Authorizing Provider Result Denise Nelson MD POINT OF CARE TEST ORDERABLE S Performing Organization Address City/[facility]/ZIP Code Phon e Number [address] CERNER MILLENNIUM POCT GLUCOSE LAB USE ONLY (11/23/2010 9:16 PM EDT) P athologist Signature POC Glucose 125 60 - 199 CERNER mg/dL [facility] Comment: Supplemental ranges: <110 mg/dL before meals <200 mg/dL all other times of the day Specimen Anatomical Collection Method Collection Time Receive d Time (Source) Location / / Volume Laterality Blood specimen 11/23/2010 9:16 PM 011 9:16 (specimen) EDT PM EDT Authorizing Provider Result Denise Nelson MD POINT OF CARE TEST ORDERABLE S Performing Organization Address City/[facility]/ZIP Code Phon e Number [address] CERNER MILLENNIUM POCT GLUCOSE LAB USE ONLY (11/23/2010 4:48 PM EDT) athologist Signature POC Glucose 120 60 - 199 CERNER mg/dL [facility] Comment: Supplemental ranges: <110 mg/dL before meals <200 mg/dL all other times of the day Specimen Anatomical Collection Method Collection Time Receive d Time (Source) Location / / Volume Laterality Blood specimen 11/23/2010 4:48 PM 011 4:48 (specimen) EDT PM EDT Authorizing Provider Result Denise Nelson MD POINT OF CARE TEST ORDERABLE S Performing Organization Address City/[facility]/ZIP Code Phon e Number [address] CERNER MILLENNIUM (ABNORMAL) Basic metabolic panel (11/23/2010 12:05 PM EDT) athologist Signature Glucose Lvl 121 60 - 199 CERNER mg/dL [facility] Comment: Diabetes: >=200 mg/dL plus symp toms BUN 14 10 - 20 mg/dL CERNER MILLENNIU M Creatinine 0.67 (L) 0.80 - 1.50 mg/dL CERNER MILL ENNIUM Sodium 137 135 - 145 mmol/L CERNER ELISE NIUM [...] - 107 mmol/L CERNER MILLENN IUM CO2 28 22 - 31 mmol/L COLLIN GALICIAI UM Anion Gap 7 5 - 15 mmol/L COLLIN GALICIAIU M Calcium 9.1 8.5 - 10.5 mg/dL COLLIN OLIVARES NIUM Estimated GFR >60 >=60 COLLIN WAREU M Comment: The National Kidney Disease Education Pr ogram (NKDEP) has recommended all laboratories report estimated GFR (eGFR) along with plasma creatinine measurements to assist you with recognit ion of early kidney disease. Caveats: ??Plasma creatinine should be a t steady-state (unchanged within the past week). For patient s multiply eGFR by 1.2.MDRD equation has not been validated for pediatric pat ients and is only valid for patients with age >= 18 years. At present, NKDEP does NOT recommend usi ng the MDRD equation for drug dosing purposes and pharmacists should continue to use their current dosing methods. In addition, numerical eGFR values great er than 60 ml/min/1.73 square meters should be treated as > 60, and not an ex act number due to greater inaccuracies at these higher values. Per NKDEP, they classify normal renal function as any GFR >60ml/min/1.73 square meters; chronic kidney disease wh en GFR <60, and renal failure when GFR <15. ??This calculation may not be valid for patients with atypical muscle mass (very lean or obese), acute renal failur e, and in patients with diabetic kidney disease. References: http://nkdep.nih.gov/resources/NKDEP_Sug gestn4Labs_0606_508.pdf http://www.kidney.org/professionals/kls/ pdf/faq_gfr.pdf Specimen Anatomical Collection Method Collection Time Receive d Time (Source) Location / / Volume Laterality Blood specimen 11/23/2010 12:05 1 (specimen) PM EDT 12:10 PM EDT Wilfred Nelson MD CHEMISTRY ORDERABLES Performing Organization Address City/State/[place] [address] COLLIN GALICIAIUM POCT GLUCOSE LAB USE ONLY (11/23/2010 12:00 PM EDT) athologist Signature POC Glucose 118 60 - 199 CERNER mg/dL [facility] Comment: Supplemental ranges: <110 mg/dL before meals <200 mg/dL all other times of the day Specimen Anatomical Collection Method Collection Time Receive d Time (Source) Location / / Volume Laterality Blood specimen 11/23/2010 12:00 1 (specimen) PM EDT 12:00 PM EDT Authorizing Provider Result Denise Nelson MD POINT OF CARE TEST ORDERABLE S Performing Organization Address City/State/ZIP Code Phon e Number [address] CERNER MILLENNIUM POCT GLUCOSE LAB USE ONLY (11/23/2010 6:33 AM EDT) athologist Signature POC Glucose 131 60 - 199 CERNER mg/dL [facility] Comment: Supplemental ranges: <110 mg/dL before meals <200 mg/dL all other times of the day Specimen Anatomical Collection Method Collection Time Receive d Time (Source) Location / / Volume Laterality Blood specimen 11/23/2010 6:33 AM 011 6:33 (specimen) EDT AM EDT Authorizing Provider Result Denise Nelson MD POINT OF CARE TEST ORDERABLE S Performing Organization Address City/State/ZIP Code Phon e Number [address] CERNER MILLENNIUM POCT GLUCOSE LAB USE ONLY (11/22/2010 9:04 PM EDT) athologist Signature POC Glucose 114 60 - 199 CERNER mg/dL [facility] Comment: Supplemental ranges: <110 mg/dL before meals <200 mg/dL all other times of the day Specimen Anatomical Collection Method Collection Time Receive d Time (Source) Location / / Volume Laterality Blood specimen 11/22/2010 9:04 PM 011 9:04 (specimen) EDT PM EDT Authorizing Provider Result Denise Nelson MD POINT OF CARE TEST ORDERABLE S Performing Organization Address City/State/ZIP Code Phon e Number [address] CERNER MILLENNIUM POCT GLUCOSE LAB USE ONLY (11/22/2010 6:39 PM EDT) athologist Signature POC Glucose 105 60 - 199 CERNER mg/dL [facility] Comment: Supplemental ranges: <110 mg/dL before meals <200 mg/dL all other times of the day Specimen Anatomical Collection Method Collection Time Receive d Time (Source) Location / / Volume Laterality Blood specimen 11/22/2010 6:39 PM 011 6:39 (specimen) EDT PM EDT Wilfred Nelson MD POINT OF CARE TEST ORDERABLE S Performing Organization Address City/State/ZIP Code Phon e Number [place] [id number] CERNER MILLENNIUM REFLEX LAB-A-DIFF (11/22/2010 1:00 PM EDT) athologist Signature Neutrophils % 63.0 34.0 - CERNER 71.0 % MILLENNIUM Neutr Abs (ANC) 4.48 1.50 - CERNER 6.30 MILLENNIUM x10(3)/mcL Lymphocytes % 24.2 19.0 - CERNER 53.0 % MILLENNIUM Lymphocytes Abs 1.7 1.0 - 3.6 CERNER x10(3)/mcL MILLENNIUM Monocytes % 7.3 4.0 - 13.0 CERNER % MILLENNIUM Monocyte Abs 0.5 0.2 - 1.0 CERNER x10(3)/mcL MILLENNIUM Eosinophils % 4.5 0.0 - 7.0 CERNER % MILLENNIUM Eosinophils Abs 0.3 0.0 - 0.5 CERNER x10(3)/mcL MILLENNIUM Basophils % 0.7 0.0 - 2.0 CERNER % MILLENNIUM Basophils Abs 0.1 0.0 - 0.2 [...] Tamara Gran Abs 0.02 0.00 - 0.05 x10(3)/mcL CER NER MILLENNIUM Specimen Anatomical Collection Method Collection Time Receive d Time (Source) Location / / Volume Laterality Blood specimen 11/22/2010 1:00 PM 011 1:33 (specimen) EDT PM EDT Wilfred Nelson MD HEMATOLOGY ORDERABLES Performing Organization Address City/State/[place] [address] CERNER MILLENNIUM (ABNORMAL) Basic metabolic panel (11/22/2010 1:00 PM EDT) P athologist Signature Glucose Lvl 134 60 - 199 CERNER mg/dL [facility] Comment: Diabetes: >=200 mg/dL plus symp toms BUN 14 10 - 20 mg/dL CERNER MILLENNIU M Creatinine 0.57 (L) 0.80 - 1.50 mg/dL CERNER MILL ENNIUM Sodium 140 135 - 145 mmol/L CERNER [...] - 107 mmol/L CERNER MILLENN IUM CO2 27 22 - 31 mmol/L CERNER MILLENNI UM Anion Gap 11 5 - 15 mmol/L CERNER MILLENNIU M Calcium 9.4 8.5 - 10.5 mg/dL CERNER ELISE NIUM Estimated GFR >60 >=60 CERNER MILLENNIU M Comment: The National Kidney Disease Education Pr ogram (NKDEP) has recommended all laboratories report estimated GFR (eGFR) along with plasma creatinine measurements to assist you with recognit ion of early kidney disease. Caveats: ??Plasma creatinine should be a t steady-state (unchanged within the past week). For patient s multiply eGFR by 1.2.MDRD equation has not been validated for pediatric pat ients and is only valid for patients with age >= 18 years. At present, NKDEP does NOT recommend usi ng the MDRD equation for drug dosing purposes and pharmacists should continue to use their current dosing methods. In addition, numerical eGFR values great er than 60 ml/min/1.73 square meters should be treated as > 60, and not an ex act number due to greater inaccuracies at these higher values. Per NKDEP, they classify normal renal function as any GFR >60ml/min/1.73 square meters; chronic kidney disease wh en GFR <60, and renal failure when GFR <15. ??This calculation may not be valid for patients with atypical muscle mass (very lean or obese), acute renal failur e, and in patients with diabetic kidney disease. References: http://nkdep.nih.gov/resources/NKDEP_Sug gestn4Labs_0606_508.pdf http://www.kidney.org/professionals/kls/ pdf/faq_gfr.pdf Specimen Anatomical Collection Method Collection Time Receive d Time (Source) Location / / Volume Laterality Blood specimen 11/22/2010 1:00 PM 011 1:33 (specimen) EDT PM EDT Wilfred Nelson MD CHEMISTRY ORDERABLES Performing Organization Address City/[facility] Code Phon e Number [address] CERNER MILLENNIUM Phosphorus (11/22/2010 1:00 PM EDT) P athologist Signature Phosphorus 3.9 2.5 - 4.5 CERNER mg/dL [facility] Specimen Anatomical Collection Method Collection Time Receive d Time (Source) Location / / Volume Laterality Blood specimen 11/22/2010 1:00 PM 011 1:33 (specimen) EDT PM EDT Wilfred Nelson MD CHEMISTRY ORDERABLES Performing Organization Address City/[facility] Phon e Number [address] CERNER MILLENNIUM Magnesium (11/22/2010 1:00 PM EDT) P athologist Signature Magnesium 0.71 0.69 - 1.07 CERNER mmol/L MILLENNIUM Specimen Anatomical Collection Method Collection Time Receive d Time (Source) Location / / Volume Laterality Blood specimen 11/22/2010 1:00 PM 011 1:33 (specimen) EDT PM EDT Wilfred Nelson MD CHEMISTRY ORDERABLES Performing Organization Address City/[facility]/[place] [address] CERNER MILLENNIUM (ABNORMAL) CBC (with Diff) (11/22/2010 1:00 PM EDT) athologist Signature WBC 7.1 4.0 - 10.0 CERNER x10(3)/mcL MILLENNIUM RBC 4.13 (L) 4.63 - CERNER 6.08 MILLENNIUM x10(6)/mcL Hemoglobin 11.6 (L) 13.7 - CERNER 17.5 gm/dL MILLENNIUM Hematocrit 37.1 (L) 40.0 - CERNER 51.0 % MILLENNIUM MCV 89.8 79.0 - CERNER 92.0 fL MILLENNIUM MCH 28.1 25.6 - CERNER 32.2 pg MILLENNIUM MCHC 31.3 (L) 32.0 - CERNER 36.5 gm/dL MILLENNIUM Platelets 330 145 - 370 CERNER x10(3)/mcL MILLENNIUM RDWSD 50.6 (H) 35.0 - CERNER 46.0 fL MILLENNIUM RDWCV 16.1 (H) 10.9 - CERNER 14.4 % MILLENNIUM MPV 10.2 9.0 - 12.0 CERNER fL MILLENNIUM Specimen Anatomical Collection Method Collection Time Receive d Time (Source) Location / / Volume Laterality Blood specimen 11/22/2010 1:00 PM 011 1:33 (specimen) EDT PM EDT Wilfred Nelson MD HEMATOLOGY ORDERABLES Performing Organization Address City/[facility]/[place] [address] CERNER MILLENNIUM (ABNORMAL) CK (11/22/2010 1:00 PM EDT) athologist Signature CK, Total 6896 (H) 0 - 200 CERNER unit/L MILLENNIUM Specimen Anatomical Collection Method Collection Time Receive d Time (Source) Location / / Volume Laterality Blood specimen 11/22/2010 1:00 PM 011 1:33 (specimen) EDT PM EDT Wilfred Nelson MD CHEMISTRY ORDERABLES Performing Organization Address City/State/ZIP Code Phon e Number [place] [phone] [facility] documented in this encounter Visit Diagnoses Diagnosis Myopathy Myopathy, unspecified Myopathy, unspecified documented in this encounter Administered Medications Inactive Administered Medications - up to 3 most recent administrations Medication Order MAR Action Action Date Dose Rate Site atenolol (TENORMIN) tablet 100 mg Given 11/25/2010 9:00 AM EDT 100 mg 100 mg, Oral, DAILY, First dose on Sat11/23/10 at 0900, Until Discontinued, Routine Given 11/24/2010 9:29 AM EDT 100 mg Given 11/23/2010 9:00 AM EDT 100 mg docusate sodium (COLACE) capsule 100 mg Given 11/24/2010 9:00 PM EDT 100 mg 100 mg, Oral, 2 TIMES DAILY, First dose on Sat11/22/10 at 1330, Until Discontinued, Routine Given 11/23/2010 9:00 AM EDT 100 mg Given 11/22/2010 9:00 PM EDT 100 mg enoxaparin (LOVENOX) injection 40 mg Given 11/25/2010 9:00 AM EDT 40 mg 40 mg, Subcutaneous, DAILY, First dose on Sat11/22/10 at 1330, Until Discontinued, Routine Given 11/24/2010 9:30 AM EDT 40 mg Given 11/23/2010 9:00 AM EDT 40 mg folic acid (FOLVITE) tablet 1,000 mcg Given 11/25/2010 9:00 AM EDT 1,000 mcg 1,000 mcg (1 mg), Oral, DAILY, First dose on Sat11/23/10 at 0900, Until Discontinued, Routine Given 11/24/2010 9:00 AM EDT 1,000 mcg Given 11/23/2010 9:00 AM EDT 1,000 mcg hydrochlorothiazide (HYDRODIURIL) tablet 25 mg Given 11/25/2010 9:00 AM EDT 25 mg 25 mg, Oral, DAILY, First dose on Sat11/22/10 at 1900, Until Discontinued, Routine Given 11/24/2010 9:00 AM EDT 25 mg Given 11/23/2010 9:00 AM EDT 25 mg immune globulin (GAMUNEX) 10% infusion Given 11/23/2010 10:24 AM EDT 40 g 40 g, Intravenous, DAILY, 3 doses, First dose (after last reorder) on Sat11/22/10 at 1415, Last dose on Sat11/24/10 at 0900, Gradually Increase rate as tolerated, per guidelines. Initial rate: 0.01-0.02mL/kg/min, Interim rate: 0.04mL/kg/min, Maxiumim rate: 0.08mL/kg/min TOTAL DOSE 45g, Routine, Please indicate the name & specialty of the Attending Provider who authorized the use of this medication: johanna Nelson Given by Other 11/22/2010 2:15 PM EDT 40 g immune globulin (GAMUNEX) 10% infusion Given 11/23/2010 10:32 AM EDT 5 g 5 g, Intravenous, DAILY, 3 doses, First dose on Sat11/22/10 at 1415, Last dose on Sat11/24/10 at 0900, Gradually Increase rate as tolerated, per guidelines. Initial rate: 0.01-0.02mL/kg/min, Interim rate: 0.04mL/kg/min, Maxiumim rate: 0.08mL/kg/min TOTAL DOSE 45g, Routine, Please indicate the name & specialty of the Attending Provider who authorized the use of this medication: johanna Nelson Given by Other 11/22/2010 2:15 PM EDT 5 g immune globulin (GAMUNEX) 10% infusion Given 11/25/2010 9:00 AM EDT 60 g 60 g, Intravenous, DAILY, 2 doses, First dose on Sat11/24/10 at 0900, Last dose on Sat11/25/10 at 0900, Gradually Increase rate as tolerated, per guidelines. Initial rate: 0.01-0.02mL/kg/min, Interim rate: 0.04mL/kg/min, Maxiumim rate: 0.08mL/kg/min Total dose is 65 g, Routine, Please indicate the name & specialty of the Attending Provider who authorized the use of this medication: johanna Nelson Given 11/24/2010 9:00 AM EDT 60 g immune globulin (GAMUNEX) 10% infusion Given 11/25/2010 9:00 AM EDT 5 g 5 g, Intravenous, DAILY, 2 doses, First dose on Sat11/24/10 at 0900, Last dose on Sat11/25/10 at 0900, Gradually Increase rate as tolerated, per guidelines. Initial rate: 0.01-0.02mL/kg/min, Interim rate: 0.04mL/kg/min, Maxiumim rate: 0.08mL/kg/min Total dose is 65 g, Routine, Please indicate the name & specialty of the Attending Provider who authorized the use of this medication: Omar neurology Given 11/24/2010 9:00 AM EDT 5 g lisinopril (PRINIVIL;ZESTRIL) tablet 10 mg Given 11/25/2010 9:00 AM EDT 10 mg 10 mg, Oral, DAILY, First dose on Sat11/22/10 at 1900, Until Discontinued, Routine Given 11/24/2010 9:00 AM EDT 10 mg Given 11/23/2010 9:00 AM EDT 10 mg methotrexate chemo tablet 12.5 mg Given 11/23/2010 9:00 AM EDT 12.5 mg 12.5 mg, Oral, WEEKLY, First dose on Sat11/23/10 at 0900, Until Discontinued, Routine pioglitazone (ACTOS) tablet 30 mg Given 11/25/2010 9:00 AM EDT 30 mg 30 mg, Oral, DAILY, First dose on Sat11/23/10 at 0900, Until Discontinued, Routine Given 11/24/2010 9:00 AM EDT 30 mg Given 11/23/2010 9:00 AM EDT 30 mg sodium chloride 0.9 % flush 5 mL Given 11/25/2010 1:15 AM EDT 5 mLs 5 mL, Intravenous, EVERY 12 HOURS, First dose on Sat11/22/10 at 1315, Until Discontinued Given 11/24/2010 1:15 PM EDT 5 mLs Given 11/24/2010 1:15 AM EDT 5 mLs sodium chloride 0.9% infusion New Bag 11/23/2010 6:01 AM EDT 100 mL/hr 100 mL/hr 100 mL/hr, Intravenous, CONTINUOUS, Starting on Sat11/22/10 at 1315, Until Sat11/23/10 at 1359 New Bag 11/22/2010 8:28 PM EDT 100 mL/hr 100 mL/hr New Bag 11/22/2010 1:15 PM EDT 100 mL/hr 100 mL/hr traMADol (ULTRAM) tablet 100 mg Given 11/25/2010 9:00 AM EDT 100 mg 100 mg, Oral, 2 TIMES DAILY, First dose on Sat11/22/10 at 1330, Until Discontinued, Routine Given 11/24/2010 9:02 PM EDT 100 mg Given 11/24/2010 9:00 AM EDT 100 mg documented in this encounter Active and Recently Administered Medications Times are shown in EDT. Scheduled Medication Order 11/23/2010 11/24/2010 11/25/2010 atenolol (TENORMIN) tablet 100 mg (CANCELED) 0900 (Giv en - Provider: Cher Weathers RN) 0929 (Given - Provider: Birgit Phillips RN) 0900 (Given - Provider: Birgit Phillips RN) 100 mg, Oral, DAILY, First dose on Sat at 0900, Until Discontinued, Routine docusate sodium (COLACE) capsule 100 mg (CANCELED) 090 0 (Given - Provider: Cher Weathers RN)2100 (Not Given - Provider: Cher Weathers RN - Reason: Patient/family refused) 0900 (Not Given - Provider: Birgit tafoya RN - Reason: Patient/family refused)2100 (Given - Provider: Enedina Mayer RN) 0900 (Not Given - Provider: Birgit Phillips RN - Reason: Patient/family refused) 100 mg, Oral, 2 TIMES DAILY, First dose on Sat11/22/10 at 1330, Until Discontinued, Routine enoxaparin (LOVENOX) injection 40 mg (CANCELED) 0900 ( Given - Provider: Cher Weathers RN) 0930 (Given - Provider: Birgit Phillips RN) 0900 (Given - Provider: Birgit hPillips RN) 40 mg, Subcutaneous, DAILY, First dose o n Sat11/22/10 at 1330, Until Discontinued, Routine folic acid (FOLVITE) tablet 1,000 mcg (CANCELED) 0900 (Given - Provider: Cher Weathers RN) 899 (Given - Provider: Birgit Phillips RN) 899 (Given - Provider: Birgit Phillips RN) 1 mg = 1,000 mcg, Oral, DAILY, First dos e on Raiza 11/23/10 at 0900, Until Discontinued, Routine hydrochlorothiazide (HYDRODIURIL) tablet 25 mg (CANCEL ED) 899 (Given - Provider: Cher Weathers RN) 899 (Given - Provider: Birgit Phillips RN) 899 (Given - Provider: Birgit Phillips RN) 25 mg, Oral, DAILY, First dose on 24/04 at 1900, Until Discontinued, Routine immune globulin (GAMUNEX) 10% infusion (CANCELED) 1024 (Given - Provider: Cher Weathers RN) 40 g, Intravenous, DAILY, 3 doses, First dose on Sat11/22/10 at 1415, Last dose on Sat11/24/10 at 0900, Gradually Increase rate as tolerated, per guidelines. Initial rate: 0.01-0.02mL/kg/min, Interim ra te: 0.04mL/kg/min, Maxiumim rate: 0.08mL/kg/min TOTAL DOSE 45g, Routine immune globulin (GAMUNEX) 10% infusion (CANCELED) 1032 (Given - Provider: Cher Weathers RN) 5 g, Intravenous, DAILY, 3 doses, First dose on Sat11/22/10 at 1415, Last dose on Sat11/24/10 at 0900, Gradually Increase rate as tolerated, per guidelines. Initial rate: 0.01-0.02mL/kg/min, Interim rat e: 0.04mL/kg/min, Maxiumim rate: 0.08mL/kg/min TOTAL DOSE 45g, R outine immune globulin (GAMUNEX) 10% infusion (COMPLETED) 899 (Given - Provider: Birgit Phillips RN) 09 (Given - Provider: Regla Rdz) 60 g, Intravenous, DAILY, 2 doses, First dose on Sat11/24/10 at 0900, Last dose on Sat11/25/10 at 0900, Gradually Increase rate as tolerated, per guidelines. Initial rate: 0.01-0.02mL/kg/min, Interim ra te: 0.04mL/kg/min, Maxiumim rate: 0.08mL/kg/min Total dose is 65 g, Routine immune globulin (GAMUNEX) 10% infusion (COMPLETED) 09 (Given - Provider: Birgit Phillips RN) 09 (Given - Provider: Regla Rdz) 5 g, Intravenous, DAILY, 2 doses, First dose on Sat11/24/10 at 0900, Last dose on Sat11/25/10 at 0900, Gradually Increase rate as tolerated, per guidelines. Initial rate: 0.01-0.02mL/kg/min, Interim rat e: 0.04mL/kg/min, Maxiumim rate: 0.08mL/kg/min Total dose is 65 g, Routine lisinopril (PRINIVIL;ZESTRIL) tablet 10 mg (CANCELED) 09 (Given - Provider: Cher Weathers RN) 09 (Given - Provider: Birgit Phillips RN) 899 (Given - Provider: Birgit Phillips RN) 10 mg, Oral, DAILY, First dose on 24/04 at 1900, Until Discontinued, Routine methotrexate chemo tablet 12.5 mg (CANCELED) 899 (Giv en - Provider: Cher Weathers RN) 12.5 mg, Oral, WEEKLY, First dose on Sat11/23/10 at 0900, Until Discontinued, Routine pioglitazone (ACTOS) tablet 30 mg (CANCELED) 09 (Giv en - Provider: Cher Weathers RN) 899 (Given - Provider: Birgit Phillips RN) 09 (Given - Provider: Birgit Phillips RN) 30 mg, Oral, DAILY, First dose on 25/04 at 0900, Until Discontinued, Routine sodium chloride 0.9 % flush 5 mL (CANCELED) 0115 (Not Given - Provider: Tara Live - Reason: See comment - Comment: infusing IVF)1315 (Given - Provider: Cher Weathers RN) 0115 (Given - Provider: Regla Mckeon)1315 (Given - Provider: Birgit Phillips RN) 0115 (Given - Provider: Enedina A Leyla, R N)1315 (Due) 5 mL, Intravenous, EVERY 12 HOURS, First dose on Sat11/22/10 at 1315, Until Discontinued, Routine traMADol (ULTRAM) tablet 100 mg (CANCELED) 0900 (Given - Provider: Cher Weathers RN)2140 (Given - Provider: Enedina Mayer, RN) 0900 (Given - Provider: Birgit Phillips, RN)2101 (Given - Provider: Enedina Mayer, WES) 0900 (Given - Provider: Birgit Phillips RN) 100 mg, Oral, 2 TIMES DAILY, First dose on Sat11/22/10 at 1330, Until Discontinued, Routine Continuous Medication Order 11/23/2010 11/24/2010 11/25/2010 sodium chloride 0.9% infusion () 0601 (New Bag - Provider: Tara Live) 100 mL/hr, at 100 mL/hr, Intravenous, CO NTINUOUS, Starting Sat11/22/10 at 1315, Until Raiza 11/23/10 at 1359 documented in this encounter Care Teams Data Input Clerk Relationship Specialty Start Date End Date Samantha Baer MD PCP - General 11/07/10 [address] [place] [address] documented as of this encounter
--- NOTE | 2022-04-11 11:00 | DI.US_ITS ---
Exam(s) US EXTREMITY VENOUS BI EXAM: US EXTREMITY VENOUS BI CLINICAL HISTORY: Bilateral leg swelling, Right leg erythema, warmth. TECHNIQUE: Bilateral lower extremity venous ultrasound performed using grayscale, color-flow, and sp ectral Doppler analysis. COMPARISON: No exams were available for comparison FINDINGS: The bilateral common femoral, femoral and popliteal veins demonstrate normal compressibility, augment ation, and color Doppler. The posterior tibial veins are patent. IMPRESSION: Right: Negative for DVT Left: Negative for DVT DATA REPOSITORY:
--- NOTE | 2022-04-11 11:04 | DI.RAD_ITS ---
Exam(s) XR CHEST 2V PA LATERAL EXAM: XR CHEST 2V PA LATERAL CLINICAL HISTORY: Cough, Fever, PUI, TECHNIQUE: 2D digital imaging was performed. COMPARISON: CR XR CHEST 2V PA LATERAL from 04/10/2021 FINDINGS: A port is noted over the right upper chest with the tip in the SVC, unchanged. HEART: Heart is mildly enlarged, stable. Aorta: Not dilated. PULMONARY VASCULATURE: Normal. LUNGS: Clear. PLEURAL SPACE: No pleural effusion or pneumothorax. BONE:Flowing osteophytes in the thoracic spine. IMPRESSION: No acute abnormality. DATA REPOSITORY: RADIATION DOSE DELIVERED:
--- OUTSIDE RECORDS SUMMARY | 2022-04-11 11:06 | XMS_ITS | Clinical Summary ---
:1960 Author Organization [facility] Address [address] [place] [address] Care Team Providers Name Role Phone Jazmine Baer MD Primary Care Provider Social History Tobacco Use Types Packs/Day Years Used Date Never Assessed Sex Assigned at Date Recorded Not on file Plan of Treatment Health Maintenance Due Date Last Done Comments Hepatitis C Screen 1960 COVID-19 Vaccine (1) 1965 Insurance Payer Benefit Plan / Subscriber ID Effective Dates Phone Addre ss Type Group MEDICARE MEDICARE A/B [id number] 2013-Present [id number] [place] [phone] (Work) [id number] Bucky Acevedo Personal/Family Self 1960 [address] [phone] [place] (Work) [id number] Bucky Acevedo Personal/Family Self 1960 [address] [phone] [place] (Work) [phone] Bucky Acevedo Personal/Family Self 1960 [address] [phone] [place] (Work) [id number] Bucky Acevedo Personal/Family Self 1960 [address] [phone] [place] (Work[place] [phone] Bucky Acevedo Personal/Family Self 1960 [address] [phone] [place] (Work) [phone] Bucky Acevedo Personal/Family Self 1960 [address] [phone] [place] (Work) [phone] Bucky Acevedo Personal/Family Self 1960 [address] [place] [phone] [place] (Work) [phone] Care Teams Magazine Writer Relationship Specialty Start Date End Date Jazmine Baer MD PCP - General 10/20/[address] [place] [id number]
--- OUTSIDE RECORDS SUMMARY | 2022-04-11 11:06 | XMS_ITS | Encounter Summary ---
:1960 Author Organization [facility] Address [address] [place] [address] Care Team Providers Name Role Phone Jazmine Baer MD Primary Care Provider Encounter Details Date Type Department Care Team Description 02/14/[address] [facility] Nile Naik eoplasm of Pathology & P, PA unspecified behavior Laboratory Medicine [address] tissue, and skin [address] [place] [id number] Social History Tobacco Use Types Packs/Day Years Used Date Never Assessed Sex Assigned at Date Recorded Not on file documented as of this encounter Plan of Treatment Not on filedocumented as of this encounter Procedures Procedure Name Priority Date/Time Associated Diagnosis Comme nts SURGICAL PATHOLOGY Today 02/10/2021 10:40 Neoplasm of Resul ts for this EDT unspecified behavior procedu re are in of bone, soft the results tissue, and skin section. documented in this encounter Results SURGICAL PATHOLOGY (02/10/2021 10:40 EDT) Note to Patient The following [facility] pathology results CENTER have been interpreted LABORATORY by your pathologist SERVICES and may be available to you before your health provider has had the opportunity to review them. Please allow time for your provider to receive these results and explore management options, if applicable. Final Diagnosis A. SKIN OF FOREHEAD, RIGHT, SHAVE BIOPSY: [facility] - Basal cell carcinoma, nodu lar type, involving the biopsy base and peripheral edge. CENTER LABORATORY SERVICES Attestation By the signature [facility] Electronica lly below, the attending CENTER signed by [place] physician certifies LABORATORY Aisha Montejo MD on that they have 1) SERVICES 02/16/2021 a t 1043 personally conducted a gross and/or microscopic examination of the described specimen(s), and/or personally interpreted the results of laboratory testing of the described specimen(s), and 2) personally rendered or confirmed the above diagnosis. Clinical History Non-healing skin [facility] lesion; clinical CENTER diagnosis code: D49.2 LABORATORY SERVICES Gross Description A. [facility] Received in formalin maximo d with proper patient identification (initials S, S) and right forehead is a good-white nodular skin shave biopsy measuring 1.5 x 1.2 x 0.4 cm. The specimen is inked, serially sectioned and submitted entirely in A1-A2. CENTER LABORATORY LUDA ENGLAND(ASCP) 02/14/2021 19:02 SERVICES Performing Lab [facility] HOSPITAL LAB [facility] SERVICES Scanned Images [facility] SERVICES Specimen Tissue - Skin (tissue) specimen (specime n) Performing Organization Address City/State/ZIP Code Phon e Number [facility] [address] [place] [address] SERVICES documented in this encounter Visit Diagnoses Diagnosis Neoplasm of unspecified behavior of bone , soft tissue, and skin documented in this encounter Care Teams Office Services Manager Relationship Specialty Start Date End Date Jazmine Baer MD PCP - General 10/20/12 [address] [place] [address] documented as of this encounter
--- OUTSIDE RECORDS SUMMARY | 2022-04-11 11:06 | XMS_ITS ---
:1960 Author Organization [facility] Address [address], [place] [address] Care Team Providers Name Role Phone Nile Naik Unavailable Unavailable PROBLEMS Type Condition ICD9-CM Code AMX25-IH Code Onset Condition SNO MED Code Dates Status Problem Neoplasm of D49.2 Active [id number] [id number] unspecified behavior of bone, soft tissue, and skin Problem Basal cell C44.310 Active 705118348 carcinoma, face Problem Skin cancer, C44.91 Active [id number] basal cell ALLERGIES Substance Reaction Event Type Date Status MS Contin Unknown Drug Allergy Sep, Active Methotrexate Unknown Drug Allergy Sep, Active Morphine Unknown Drug Allergy Sep, Active Statin Unknown Non Drug Allergy Sep, Active ENCOUNTERS Encounter Location Date Diagnosis [address] Sep, Postoperat ida examination Otolaryngology [address] [id number] [address] Aug, Basal cell carcinoma, Otolaryngology [address] [facility] C44.310 ; Skin [place] [id number] cancer, basal ce ll C44.91 and Visit for ro ture removal Z48.[address] 10 Aug, 2021 Basal cell carcinoma, [address] [place], [place] face C44.[id number] Jul, Basal cell carcinoma, Otolaryngology [address] [facility] C44.310 [place] [id number] [address] Jun, Otolaryngology [address] [place], [place] [id number] [address] Apr, Neoplasm o f unspecified Otolaryngology [address] [place], [facility], soft [place] [id number] tissue, and skin D49.[address], Mar, Skin c ancer, basal cell [facility] [address] C4 4.91 ; [facility] keratoses L5 7.0 and [id number] Atypical nevi D2 2.[address] Mar, Otolaryngology [address] [place], [place] [id number] [address] Feb, Otolaryngology [address] [place], [place] [id number] [address], Feb, Neopla sm of unspecified [facility] [address] be hav[facility] of bone, soft [place], [place] tissue, and skin D49.[id number], Nov, [facility] [address] [place], [place] [id number] IMMUNIZATIONS No Known Immunizations SOCIAL HISTORY Qualifiers Date Never Smoker REASON FOR REFERRAL FUNCTIONAL STATUS PLAN OF CARE Activity Details Follow Up 6 Month Reason:recheck skin VITAL SIGNS Height 5 ft 9 in in 2021-09-19 Height 5 ft 9 in in 2021-08-28 Height 5 ft 9 in in 2021-07-13 Height 5 ft 9 in in 2021-04-07 Height 5 ft 9 in in 2021-02-10 Weight 280 lbs 2021-09-19 Weight 280 lbs 2021-08-28 Weight 290 lbs 2021-07-13 Weight 290 lbs 2021-04-07 Weight 280 lbs 2021-02-10 Heart Rate 67 /min 2021-09-19 Heart Rate 72 /min 2021-07-13 Oximetry 98 2021-07-13 BMI 41.34 kg/m2 2021-09-19 BMI 41.34 kg/m2 2021-08-28 BMI 42.82 kg/m2 2021-07-13 BMI 42.82 kg/m2 2021-04-07 BMI 41.34 kg/m2 2021-02-10 Blood pressure systolic 143 mm Hg 2021-09-19 Blood pressure diastolic 71 mm Hg 2021-09-19 MEDICATIONS Medication Instructions Dosage Frequency Start End Duration Statu s Date Date Furosemide 20 MG Orally Once a 1 tablet 24h 30 day(s ) Active day Aranesp (Alb Active Free) SureClick Lantus SoloStar Subcutaneous as directed 12h Not-Taki 100 UNIT/ML BID ng Aspirin 81 81 MG Orally Once a 1 tablet 24h 30 day(s ) Active day Losartan Orally Once a 1 tablet 24h Not-Taki Potassium-HCTZ day ng 50-12.5 MG Colchicine 0.6 1 tablet 30 day(s) Active MG Venofer 20 MG/ML as directed Act ida Ondansetron 4 MG Orally Once a 1 tablet on 24h 30 da y(s) Active day the tongue and allow to dissolve Allopurinol 100 Orally Once a as directed 24h Active MG day Nitroglycerin as directed Active 0.4 MG Multivitamin Active Carvedilol 6.25 Orally Twice a 1 tablet 12h 30 day(s ) Active MG day with food Lantus 100 as directed Active UNIT/ML Terazosin HCl 5 Orally Once a 1 capsule 24h Not-Taki MG day at bedtime ng Losartan Orally Once a 1 tablet 24h 30 day(s) Active Potassium 50 MG day HumaLOG 100 as directed Active UNIT/ML furosemide 20 mg 1 tab Not-Zeeshan i ng Metoprolol Orally Once a 1 tablet 24h Not-Ta ki Succinate ER 50 day ng MG Magnesium Oxide Orally Once a 1 tablet as 24h 30 day (s) Active 400 MG day needed Clopidogrel Orally Once a 1 tablet 24h 30 day(s) Act ida Bisulfate 75 MG day Procrit as directed Not-Ta ki UNIT/ML ng HumaLOG KwikPen Not-Taki ng Canagliflozin Orally Once a 1 tablet 24h 30 day(s) A ctive 100 MG day before the first meal of the day SOLU-Medrol 125 as directed Not- Taki MG ng PROCEDURES Procedure Date Ordered Result Body Site SKIN TISSUE REARRANGE ADD-ON August 17, 2021 EXCISION MAL LESION 3.1-4.0CM August 17, 2021 SKIN TISSUE REARRANGEMENT August 17, 2021 RESULTS Name Result Date Reference Range SURGICAL PATH 2021-02-10 REASON FOR VISIT ENT 6mo wound check, ENT- 3 wk wound check, ENT POST OP SKIN CANCER, ENT Excision of skin cancer right forehead, frozen section and reconstruction, ENT POST OP SKIN CANCER, ENT Excision of skin cancer right forehead with frozen sections and reconstruction (LOCAL ONLY), ENT- CLEARANCE, ENT- Pre-OP, confirm only oral melt, ENT PAT STOP-BANG, ENT Excision skin cancer right forehead frozen and reconstruction, surg path, ENT pre op skin cancer, Pre op call, Surgical Path results, ENT [facility] Skin Lesion on face, Chart preload Insurance Providers [facility] Member Patient Patient Patient Patient Patient Subscriber Subscriber Subscriber Group Insurance Plan Plan Plan Plan ID Relationship Address Phone Name Date of ID Name Date of No Type Insurance Insurance Insurance Coverage to Subscriber Address Phone Name Dates [facility] - [address] [facility] - self [place] [id number] DO NOT MEGHANA DO ELBA LUQUE ([place] ([place]) [place] [address] Off) [facility] CARE [address] [phone] [facility] self [place] [id number] LEVEL 1 MEGHANA 60 LEVEL [id number] [facility] [id number] MEDICARE [id number] MEDICARE self [place] [id number] PART A [id number] PART A [place] [id number] MEDICARE [phone] MEDICARE self [place] [id number] [place] [address]
--- OUTSIDE RECORDS SUMMARY | 2022-04-11 11:06 | XMS_ITS | Encounter Summary ---
:1960 Author Organization Address [address] [place] [address] Care Team Providers Name Role Phone Jazmine Baer MD Primary Care Provider Encounter Details Date Type Department Care Team Description 08/18/2021 Lab Requisition [facility] Onofre Riley sm of unspecified behavior of bone, soft tissue, and skin; Pathology & Jerry Montejo DO Basal cell carcinoma of skin, unspecifie d Laboratory Medicine [address] [place] [address] [place] [address] Social History Tobacco Use Types Packs/Day Years Used Date Never Assessed Sex Assigned at Date Recorded Not on file documented as of this encounter Plan of Treatment Not on filedocumented as of this encounter Procedures Procedure Name Priority Date/Time Associated Diagnosis Comme nts SURGICAL PATHOLOGY Today 08/17/2021 11:41 Neoplasm of Resul ts for this EST unspecified behavior procedu re are in of bone, soft the results tissue, and skin section. Basal cell carcinoma of skin, unspecified documented in this encounter Results SURGICAL PATHOLOGY (08/17/2021 11:41 EST) Note to Patient The following [facility] MEDICAL pathology results CENTER have been LABORATORY interpreted by your SERVICES pathologist and may be available to you before your health provider has had the opportunity to review them. Please allow time for your provider to receive these results and explore management options, if applicable. Final Diagnosis A. SKIN OF FOREHEAD, RIGHT, EXCISIONAL BIOPSY: [facility] [place] - Minute focus of residual basal cell carcinoma. See c omment. [facility] - Background scar and dermal solar elastosis. - Peripheral and deep margin s negative for involvement by basal cell carcinoma. Diagnosis Comment Correlation is made [facility] with the prior [facility] biopsy ([id number]). The current follow-up excision shows a minute focus of residual basal cell carcinoma in the mid dermis, located well away from the inked edges. Uninvolved benign skeletal muscle is present at the deep edge of the excision. Attestation By the signature [facility] MEDICAL Electronica lly below, the attending CENTER signed by Howard, physician certifies LABORATORY Tessy jauregui MD PhD that they have 1) SERVICES on 08/26/19 at personally conducted 1112 a gross and/or microscopic examination of the described specimen(s), and/or personally interpreted the results of laboratory testing of the described specimen(s), and 2) personally rendered or confirmed the above diagnosis. Intraoperative A. [facility] MEDICAL Consultation SKIN OF FOREHEAD, RIGHT, FROZEN SECTION: CENTER - FSA1: Levels 1 + 8 (1:30 and 7:30 tips en face ): Uninvolved by tumor. LABORATORY - FSA2: Levels 2 + 3: Margins uninvolved by tumor. SERVICES - FSA3: Levels 4 + 5: Margins uninvolved by tumor. - FSA4: Levels 6 + 7: Margins uninvolved by tumor. - Frozen section findings co mmunicated to Dr. Jerry Riley and Nile Naik on 08/17/21 at 12:[address] Marielle Lawrence 08/17/21 Clinical History Neoplasm of unspecified beha vior of bone, soft tissue, and skin [facility] Basal cell carcinoma of skin, unspecified [facility] Gross Description A. [facility] Received fresh labelled with proper patient identification (initials S, S) and skin cancer right forehead is an oriented irregular portion of skin, 2.8 x 2.3 cm which is excised to depth of 0.5 cm. [address] [facility] white suture designates 3 o' clock, a blue suture designates 6 o'clock, and a black suture designates 9 o'clock. The margins are inked with blue representing the 12 o'clock side margin, green representin g the 6 o'clock side margin and orange representing deep. The specimen is serially sectioned from 1:30-7:30 o'clock, into 8 levels and entirely submitted for frozen section as FS A1-FS A4 with interpret ation as rendered above. Lev els 1, 2, 4, and 6 are over inked red. The frozen section residue is entirely submitted as follows: BLOCK KING A1- portion FS A1 residue, level 1, 1:30 tip, en face A2- portion FS A2 residue, level 2 A3- remaining FS A2 residue, level 3 A4- portion FS A3 residue, level 4 A5- remaining FS A3 residue, level 5 A6- portion FS A4 residue, level 6 A7- remaining portion FS A4 residue, level 7 A8- remaining portion FS A1 residue, level 8, 7:30 tip , en face LUDA MORENO(ASCP) 08/21/2021 11:56 Performing Lab [facility] Scanned Images [facility] Specimen Tissue - Skin (tissue) specimen (specime n) Performing Organization Address City/State/ZIP Code Phon e Number [facility] [address] [place] [address] LAB [facility] [address] [place] [address] SERVICES documented in this encounter Visit Diagnoses Diagnosis Neoplasm of unspecified behavior of bone , soft tissue, and skin Basal cell carcinoma of skin, unspecifie d documented in this encounter Care Teams Professor Of Political Science Relationship Specialty Start Date End Date Jazmine Baer MD PCP - General 10/20/[address] [place] [id number] documented as of this encounter
--- OUTSIDE RECORDS SUMMARY | 2022-04-11 11:06 | XMS_ITS | Encounter Summary ---
:1960 Author Organization [facility] Address [address] [place] [address] Care Team Providers Name Role Phone Jazmine Baer MD Primary Care Provider Encounter Details Date Type Department Care Team Description 09/05/2020 Lab Requisition [facility] Outr Resulting Lab, Pathology & Laboratory Provider [facility] [address] [place] [address] Social History Tobacco Use Types Packs/Day Years Used Date Never Assessed Sex Assigned at Date Recorded Not on file documented as of this encounter Plan of Treatment Not on filedocumented as of this encounter Procedures Procedure Name Priority Date/Time Associated Comments Diagnosis PSA TOTAL, Routine 09/05/2020 7:15 EDT Results for this DIAGNOSTIC procedure are i n the results section. documented in this encounter Results PSA TOTAL, DIAGNOSTIC (09/05/2020 7:15 EDT) Pathologist Sig nature PSA 0.1 0.0 - 4.5 ng/mL [facility] TORY SERVICES Specimen Blood - Venous blood (substance) Narrative [facility] SERVICES - 09/05/2020 17:05 EDT NOTE: Serum PSA concentration should not be in terpreted as absolute evidence for the presence or absence of malignant disease. Assayed on Siemens ADVIA Centaur XPT usi ng chemiluminescent technology.??Values obtained by using different assay methods cannot be used interchangeably. Performing Organization Address City/State/ZIP Code Phon e Number [facility] [address] [place] [address] SERVICES documented in this encounter Visit Diagnoses Not on filedocumented in this encounter Care Teams Cleaning Associate Relationship Specialty Start Date End Date Jazmine Baer MD PCP - General 10/20/12 [address] [place] [address] documented as of this encounter
--- OUTSIDE RECORDS SUMMARY | 2022-04-11 11:06 | XMS_ITS | Encounter Summary ---
:[address] [facility] Address [address] [place] [address] Care Team Providers Name Role Phone Luiz Hi MD Primary Care Provider Encounter Details Date Type Department Care Team Description 10/15/2012 Results Only [facility] Bogdan Sanderson MD Laboratory Services - [address] [place] [address] [address] [facility] [place] [address] [phone] Social History Tobacco Use Types Packs/Day Years Used Date Never Assessed Sex Assigned at Date Recorded Not on file documented as of this encounter Plan of Treatment Not on filedocumented as of this encounter Procedures Procedure Name Priority Date/Time Associated Diagnosis Comme [facility] SURGICAL PATHOLOGY Routine 10/15/2012 8:51 EDT Re sults for this procedure are i n the results section. documented in this encounter Results SURGICAL PATHOLOGY (10/15/2012 8:51 EDT) Pathologist [facility] Pathology SURGICAL PATHOLOGY REPORT SOPHIA MALIN Report: Reports generated via electronic interface contain isa ginal data; LAB however they are lacking the format of the original re port. Caution should be taken when reading/interpreting unfo rmatted reports. Name: ? BUCKY BETH ? Accession #: ? [id number] ? : ? 1960 (Age: 52) ??M ? Collect Date: ? 10/15/2012 ? Location: ? [facility] ? Receive Date: ? 013 ? Provider: BOGDAN SANDERSON MD Copy to: SAMANTHA HODGSON MD ? Final Pathologic Diagnosis: A. ?Duodenum, bulb, biopsy: 1. ?Active, erosive duodenitis. B. ?Stomach, antrum, biopsy: 1. ?Gastric body mucosa with mild chronic gastritis. 2. ?Immunostain ing for Helicobacter pylori is negative. ??See comment. C. ?Stomach, body, biopsy: 1. ?Gastric bod y mucosa with focal intestinal metaplasia associated with mild chronic gastritis and foveolar hyperplasia. 2. ? Negative for dysplasia. D. ?Esophagus, 37 cm, biopsy: 1. ?Columnar-lined mucosa w ith active inflammation and intestinal metaplasia (Durand's esophagus). ?- Negative for dysplasia. 2. ?Squamous mu cosa with histologic features of reflux esophagitis. ?? Comment: ? Immunohistochemical staining was performed on t his case to further characterize the lesion. ??P ositive and negative controls stained appropriately. (Dr. Turner)/kmm Block ?Antibody (Clone) ? Result ? B1 ?H. p ylori (Rabbit Monoclonal (SP48), [place]) ? Negative ? NOTE: ??One or more of the reagents used in immunohistochemical testing in this case may not have been cleared or approved by the U.S. Food and Drug Administration (FDA). ??The FDA has determined that such clearance or approval is not necessary. ??These tests are used for clinical purposes. ??They should not be regarded as investigational or for research. ??These r eagents' performance characteristics have been determined by [facility]. ??This laboratory is certified unde r the Clinical Laboratory Improvement Amendments of 1988 (CLIA-88) as qualified to perform high complexity clinical laboratory testing. ?? Document reviewed and electronically signed by: VELMA DAVILA MD Report ??Date: 10/20/2012 17:46 By the signature above, the attending physician certif ies that he/she has personally conducted a gross and/or microscopic examin ation of the described specimens and rendered or confirmed the above diagnosi s. Specimen(s) Received: A. ?Duodenal bulb (#1) B. ? Gastric antrum (#2) C. ? Gastric body (#3) D. ? Short segment Durand's 37 cm (#4) Clinical History: ? H/O colon adenomas, Durand's esophagus, H. pyl isa, F/H colon cancer, grossly consistent w/atrophic gastritis Gross Description: ? Received in formalin labelled Si teresa, Bucky and duodenal bulb are three light good biopsies eac h measuring 0.2 x 0.2 x 0.2 cm. ??The specimens are submitted intact as (A1). Received in formalin maximo d Bucky Beth and #2-gastric antrum are two light good biopsies measuring 0.4 x 0.1 x 0.1 cm and 0.5 x 0.2 x 0.1 cm. ??The specimens are submitted intact as (B1). Received in formalin maximo d Bucky Beth and #3-gastric body are three light good biopsies which que y in size from 0.2 x 0.2 x 0.1 cm up to 0.5 x 0.2 x 0.2 cm. ??The specimens are submitted intact as (C1). Received in formalin labelled Bucky Beth and D -esophagus biopsy are four light good biopsies which vary in si ze from 0.2 x 0.2 x 0.1 cm up to 0.4 x 0.2 x 0.2 cm. ??The specimens are submitted intact as (D1) and (D2). ??(Mj Lau)/[facility] End of Report Specimen Performing Organization Address City/State/ZIP Code Phon e Number [facility] [address] [place] [address] SERVICES [facility] [address] [place] [address] documented in this encounter Visit Diagnoses Not on filedocumented in this encounter Care Teams Critical Care Specialist Relationship Specialty Start Date End Date Luiz Hi MD PCP - General 09/22/09 10/19/[address] [place] [id number] documented as of this encounter
--- OUTSIDE RECORDS SUMMARY | 2022-04-11 11:06 | XMS_ITS | Encounter Summary ---
:1960 Author Organization [facility] Address [address] [place] [address] Care Team Providers Name Role Phone Luiz Hi MD Primary Care Provider Encounter Details Date Type Department Care Team Description 09/21/2009 Results Only [facility] Bogdan Sanderson MD Laboratory Services - [address] [place] [address] [address] [place] [address] [phone] Social History Tobacco Use Types Packs/Day Years Used Date Never Assessed Sex Assigned at Date Recorded Not on file documented as of this encounter Plan of Treatment Not on filedocumented as of this encounter Procedures Procedure Name Priority Date/Time Associated Diagnosis Comme [facility] SURGICAL PATHOLOGY Routine 09/21/2009 0:00 EDT Re sults for this procedure are i n the results section. documented in this encounter Results SURGICAL PATHOLOGY (09/21/2009 0:00 EDT) Pathologist [facility] SURGICAL PATHOLOGY REPORT ? SOPHIA MALIN Report: Reports generated via electr [email or web address] interface contain original data; ? LAB however they are lacking the format of the original report. ? Caution should be taken when reading/interpreting unformatted reports. ? Name: ? BETH, BUCKY C ? Accession #: ? [id number] ? : ? 1960 (Age: 49) ??M ? Collec t Date: ? 09/21/2009 ? Location: ? [facility] ? R eceive Date: ? 09/21/2009 ? Provider: BOGDAN WALKO MD ? Copy to: ? Final Pathologic Diagnosis: ? A. ?Duodenum, 2 nd portion, biopsies: ? 1. ?Duodenal mu cosa with no specific histopathologic diagnosis. ? 2. ? No features of eunice ac sprue or peptic duodenitis. ? B. ?Stomach, an trum, biopsies: ? 1. ?Chronic gas tritis, focally active. ? 2. ? Immunohistochemistr y positive for Helicobacter pylori. ??See comment. ? 3. ? Intestinal metaplas ia with goblet cells. ? 4. ? No dysplasia. ? C. ?Stomach, italo dy, biopsies: ? 1. ?Chronic gas tritis, focally active. ? 2. ? Immunohistochemistr y positive for Helicobacter pylori. ??See comment. ? 3. ? No goblet cells or intestinal metaplasia. ? 4. ? No dysplasia. ? D. ?Gastroesoph ageal junction, biopsies: ? 1. ?Squamocolum cindy junctional mucosa with mild chronic inflammation and reactive epithelial changes. ? 2. ? Columnar mucosa wit h mild chronic inflammation, intestinal metaplasia ? with goblet cells, and react ida epithelial changes. ? 3. ? No dysplasia. ? E. ?Colon, hepa tic flexure, polyps, biopsies: ? 1. ?Portions of tubular adenoma (two pieces); no high grade dysplasia. ?? 2. ? Colonic mucosa (one piece) with innominate groove. ? F. ?Rectum, ngoc yp, biopsy: ? 1. ?Polypoid co lorectal mucosa with surface epithelial hyperplastic ? change. ? Comment: ? Immunohistochemical s tudy was performed on this case to further ? characterize the lesion. ??P ositive and negative controls stained appropriately. Deeper sections of specimen (F) were also examined. ??(Dr. Waller)/kieshan ? Block ?Antibody (Clone) ? Result ? B, C ?H. pylori (polyclonal, [facility]) ? positive ? NOTE: ??One or more of the reagents used in immunohistochemical testing in this case may not have been clear ed or approved by the U.S. Food and Drug ? Administration (FDA). ??The FDA has determined that such clearance or approval is not necessary. ??These tests are used for clinical purposes. ??They should not be regarded as investigational or for research. ??These reagents' ??performance ? characteristics have been de termined by [facility]. ??This ? laboratory is certified unde r the Clinical Laboratory Improvement Amendments of 1988 (CLIA-88) as qualified to perform high complexity clinical laboratory ? testing. ? Document reviewed and electr onically signed by: ? Sathish Waller MD ? Report ??Date: 09/26/2009 20 :23 ? By the signature above, the attending physician certifies that he/she has ? personally conducted a gross and/or microscopic examination of the described ? specimens and rendered or co nfirmed the above diagnosis. ? Specimen(s) Received: ? EGD: ? A. ?2nd portion duodenum (#1) ? B. ? Bx antrum (#2) ? C. ? Bx body (#3) ? D. ? Bx EG junction (#4) ? Colonoscopy: ? E. ?Hepatic fle xure polyp x2 (#5) ? F. ? Rectal polyp (#6) ? Clinical History: ? Wt loss, dysphagia, c onstipation; h/o inclusion body myositis ? Gross Description: ? [facility] labelled Curtis Bucky and 2nd portion duodenum are two good-pink s oft tissues averaging 0.2 x 0.2 x 0.2 cm. ??The ? specimen is entirely submitt ed as (A). ? Received in [facility]'s fixat ida labelled Bucky Beth and bx antrum are ?? two good-pink soft tissues me asuring 0.2 x 0.2 x 0.2 cm and 0.4 x 0.2 x 0.2 cm. ?? The specimen is entirely sub mitted as (B). ? Received in [facility] fixat ida labelled Bucky Beth and bx body are two good-pink soft tissues averag ing 0.3 x 0.2 x 0.2 cm. ??The specimen is entirely ?? submitted as (C). ? Received in [facility] fixat ida labelled Bucky Beth and bx EG junction are two good-pink soft tissue s averaging 0.2 x 0.2 x 0.2 cm. ??The specimen is ? entirely submitted as (D). ? [facility] labelled Bucky Beth and hepatic flexure polyp are three good-pink so ft tissues ranging from 0.3 x 0.2 x 0.2 cm to 0.6 x 0.2 x 0.2 cm. ??The specimen is entirely submitted as (E). ? Received in [facility]'s fixat ida labelled Beth, Bucky and rectal polyp is a good-pink 0.3 x 0.2 x 0.2 c m soft tissue fragment. ??The specimen is entirely ?? submitted as (F). ??(Argelia valenzuela)/kmm ? End of Report ? Specimen Performing Organization Address City/State/ZIP Code Phon e Number [facility] [address] [place] [address] SERVICES [facility] [address] [place] [address] documented in this encounter Visit Diagnoses Not on filedocumented in this encounter Care Teams Supervisor Twisting Department Relationship Specialty Start Date End Date Luiz Hi MD PCP - General 09/22/09 10/19/[address] [place] [id number] documented as of this encounter
--- NOTE | 2022-04-11 11:07 | ED.GENADUL_ITS ---
Discharge Plan Disposition Patient Disposition: HOME Condition: Stable Discharge Details Clinical Impression: Diabetic ulcer of right great toe Primary Care Provider: Jazmine Baer V ED Provider: Grecia Brizuela Home Meds and New Rx's Prescriptions: New cephalexin 500 mg tablet 500 mg PO BID 10 Days Qty: 20 0RF benzonatate 100 mg capsule 100 mg PO BID PRN (Reason: cough) 7 Days Qty: 14 0RF Rx Instructions: Take one tablet twice daily as needed for cough Continued carvedilol 12.5 mg tablet 12.5 mg PO BID Qty: 180 3RF Rx Instructions: must administer with a meal/food colchicine 0.6 mg capsule 0.6 mg PO DIRECTED Humalog U-100 Insulin 100 unit/mL cartridge 100 unit subcut AC Label Comments: sliding scale Rx Instructions: as directed allopurinol 100 mg tablet 400 mg PO DAILY aspirin 81 mg Tablet,Delayed Release (Dr/Ec) 81 mg PO DAILY Qty: 100 0RF furosemide 40 mg tablet 40 mg PO BID Qty: 60 0RF insulin glargine [Lantus Solostar U-100 Insulin] 100 UNIT/1 ML insulin pen 50 unit SQ HS Qty: 0 0RF losartan 50 mg tablet 75 mg PO DAILY No Action Aranesp (in polysorbate) 60 mcg/mL solution 60 mcg IV Q2W PRN Label Comments: Through [facility] Outpatient Infusion Venofer 200 mg iron/10 mL solution 300 mg IV .Q30 PRN Label Comments: Through [facility] Outpatient [facility] Rx Instructions: administer over 30 mins GAMAGUARD IVIG MONTHLY FOR 2 DAYS ondansetron [Zofran ODT] 4 mg tablet,disintegrating 4 mg PO BID PRN epoetin matt 20,000 unit/mL solution 20,000 unit subcut .every other week Solu-Medrol (PF) 125 mg/2 mL recon soln 125 mg IM MONTHLY multivitamin [Daily Multi-Vitamin] 1 EACH tablet 1 tab PO DAILY magnesium oxide 400 mg (241.3 mg magnesium) Tablet 400 mg PO BID Qty: 60 1RF canagliflozin 100 mg tablet 100 mg PO DAILY Qty: 30 1RF nitroglycerin 0.4 mg tablet, sublingual 0.4 mg sublingual Q5-15M PRNQty: 30 0RF Rx Instructions: do not exceed 3 doses per episode Discharge Instructions Instructions: Foot Care for People with Diabetes (ED), Diabetic Foot Ulcers (ED) Additional Instructions: At this time your fever may be caused from an infected toe ulcer. Right lower extremity is warm and red. You are given the first dose of the antibiotic here in the emergency department. Please take the antibiotic twice daily for the next 10 days. Take the Tessalon Perles as needed for cough. If you feel sicker at any time do not hesitate to return to the emergency department. Follow up with primary care provider in 3-5 days. Return to ED sooner if any worsening or concerns. Increase oral fluids. Please take Tylenol with food every 4-6 hours as needed for pain and swelling. Referrals: Jazmine Baer MD [Primary Care Provider] - 3 days Medical Decision Making 62-year-old male presents to the ER with a chief complaint of fever, headaches, bilateral foot pain and cough. Other associated symptoms include emesis x1 last night and an episode of diarrhea prior to arrival. CBC shows hemoglobin 12.0 hematocrit 36.7 which is at patient's baseline, platelets are 55 which also are at patient's baseline does have a history of thrombocytopenia, absolute neutrophils 8.01 no leukocytosis, my patient lactate is 2.1, sodium 133, BUN 62 creatinine 2.4 GFR is 29, glucose 205 AST 54 alk phos 157 lipase is 247 urinalysis is pending COVID is negative. Bilateral lower extremity ultrasounds are negative for DVT. 1333: Patient reevaluation, repeat temp is 100.0 Fahrenheit, patient reports to feel somewhat better after the Toradol he is received a liter of fluid we will recheck a lactate at this time. He awaiting urinalysis which patient is aware of. His chest x-ray shows no acute abnormality, no pleural effusion or pneumothorax. Urinalysis shows no evidence of UTI, does have moderate blood and greater than 1000 glucose, repeat lactate is 1.9 which is improving. Fever could be from a nonhealing right toe chronic wound which does have some erythema surrounding it but no drainage. He is not currently on antibiotics. I will consider placing patient on antibiotics for fever of unknown origin, due to patient's comorbidities and possible immune suppression. I will also give patient cough medicine. Medical Records Medical records reviewed: Yes I reviewed the patient's medical records. Lab Data Lab results reviewed: Yes I reviewed the patient's lab results. Labs: Laboratory Tests Range/Units 04/11/22 04/11/22 04/11/22 11:04 11:33 11:33 WBC (4.4-10.8) 10^3/uL 8.84 RBC (4.36-5.78) 10^6/uL 3.65 L Hgb (13.5-17.5) g/dL 12.0 L Hct (40.0-50.0) % 36.7 L MCV (80-95) fL 101 H MCH (27.0-33.0) pg 32.9 MCHC (32.0-36.0) % 32.7 RDW (11.8-14.1) % 14.6 H Plt Count (130-400) 10^3/uL 55 L MPV (8.0-11.0) fL 11.4 H Immature Gran % 0.3 Neutrophils % 90.7 Lymphocytes % 2.7 Monocytes % 6.1 Eosinophils % 0.0 Basophils % 0.2 Nucleated RBC % (0.0-0.3) % 0.0 Absolute Neutrophils (1.2-6.7) 10^3/uL 8.01 H Absolute Lymphocytes (1.2-3.4) 10^3/uL 0.24 L Absolute Monocytes (0.1-0.8) 10^3/uL 0.54 Absolute Eosinophils (0.0-0.7) 10^3/uL 0.00 Absolute Basophils (0.0-0.2) 10^3/uL 0.02 RBC Morphology See Below Polychromasia Present VBG Lactate (0.6-1.4) mmol/L Sodium (136-145) mmol/L 133 L Potassium (3.5-5.1) mmol/L 4.2 Chloride (98-107) mmol/L 100 Carbon Dioxide (21.0-32.0) mmol/L 23.8 Anion Gap (3-11) mmol/L 9.2 BUN (7-18) mg/dL 62 H Creatinine (0.70-1.30) mg/dL 2.4 H Est GFR (CKD-EPI 2020) (mL/min/1.73m2) 29.39 Glucose (74-106) mg/dL 205 H Calcium (8.5-10.1) mg/dL 9.0 Magnesium (1.8-2.4) mg/dL 2.0 Total Bilirubin (0.2-1.0) mg/dL 1.0 AST (15-37) U/L 54 H ALT (16-63) U/L 44 Alkaline Phosphatase (46-116) U/L 157 H Creatine Kinase (39-308) U/L 111 Total Protein (6.4-8.2) g/dL 7.9 Albumin (3.4-5.0) g/dL 2.9 L Lipase (73-393) U/L 246 COVID-19 Source Nasal/Nares SARS-CoV-2 (PCR) (Negative) Negative Range/Units 04/11/22 04/11/22 04/11/22 11:33 11:33 11:33 WBC (4.4-10.8) 10^3/uL RBC (4.36-5.78) 10^6/uL Hgb (13.5-17.5) g/dL Hct (40.0-50.0) % MCV (80-95) fL MCH (27.0-33.0) pg MCHC (32.0-36.0) % RDW (11.8-14.1) % Plt Count (130-400) 10^3/uL MPV (8.0-11.0) fL Immature Gran % Neutrophils % Lymphocytes % Monocytes % Eosinophils % Basophils % Nucleated RBC % (0.0-0.3) % Absolute Neutrophils (1.2-6.7) 10^3/uL Absolute Lymphocytes (1.2-3.4) 10^3/uL Absolute Monocytes (0.1-0.8) 10^3/uL Absolute Eosinophils (0.0-0.7) 10^3/uL Absolute Basophils (0.0-0.2) 10^3/uL RBC Morphology Polychromasia VBG Lactate (0.6-1.4) mmol/L 2.1 H Sodium (136-145) mmol/L Potassium (3.5-5.1) mmol/L Chloride (98-107) mmol/L Carbon Dioxide (21.0-32.0) mmol/L Anion Gap (3-11) mmol/L BUN (7-18) mg/dL Creatinine (0.70-1.30) mg/dL Est GFR (CKD-EPI 2021) (mL/min/1.73m2) Glucose (74-106) mg/dL Calcium (8.5-10.1) mg/dL Magnesium (1.8-2.4) mg/dL Total Bilirubin (0.2-1.0) mg/dL AST (15-37) U/L ALT (16-63) U/L Alkaline Phosphatase (46-116) U/L Creatine Kinase (39-308) U/L Cancelled Total Protein (6.4-8.2) g/dL Albumin (3.4-5.0) g/dL Lipase (73-393) U/L Cancelled COVID-19 Source SARS-CoV-2 (PCR) (Negative) HPI General Mode of arrival: ambulatory . Date/Time Provider Initiated Documentation: 04/11/22 10:37 . Limitations to Documentation: no limitations . Information obtained by: patient, RN notes reviewed and old records reviewed . HPI Narrative: 62-year-old male presents to the ER with a chief complaint of fever, headaches, bilateral foot pain and cough. Other associated symptoms include emesis x1 last night and an episode of diarrhea prior to arrival. Symptoms began on Saturday. He is fully vaccinated for COVID. He is febrile upon arrival. He does have a past medical history of diabetes, cardiomyopathy, chronic kidney disease, NSTEMI, heart murmur, anemia, obesity, Durand's esophagus, PE, cirrhosis, hy pertension and subclavian vein thrombus. He is taking colchicine for gout he attributes the leg pain to a gout flare. Related Data Home Medications Medication Instructions Recorded Confirmed Gamaguard Ivig MONTHLY FOR 2 DAYS 09/18/12 02/05/22 multivitamin (Daily Multi-Vitamin 1 tab PO DAILY 11/23/13 02/05/22 tablet) allopurinol 100 mg tablet 400 mg PO DAILY 04/10/21 02/05/22 aspirin 81 mg tablet,delayed 81 mg PO DAILY #100 tabs 04/12/21 02/05/22 release canagliflozin 100 mg tablet 100 mg PO DAILY #30 tabs 04/12/21 02/05/22 furosemide 40 mg tablet 40 mg PO BID #60 tabs 04/12/21 02/05/22 insulin glargine 100 unit/mL (3 50 unit (0.5 mL) SQ HS #0 mL 04/12/21 02/05/22 mL) subcutaneous pen (Lantus Solostar U-100 Insulin) magnesium oxide 400 mg (241.3 mg 400 mg PO BID #60 tabs 04/12/21 02/05/22 magnesium) tablet nitroglycerin 0.4 mg sublingual 0.4 mg sublingual Q5-15M PRN #30 04/12/21 02/05/22 tablet tabs darbepoetin matt in polysorbat 60 60 mcg IV Q2W PRN 04/20/21 02/05/22 mcg/mL in polysorbate injection (Aranesp) iron sucrose 200 mg iron/10 mL 300 mg IV .Q30 PRN 04/20/21 02/05/22 intravenous solution (Venofer) colchicine 0.6 mg capsule 0.6 mg PO DIRECTED 04/24/21 02/05/22 epoetin matt 20,000 unit/mL 20,000 unit subcut .every other 04/24/21 02/05/22 injection solution week insulin lispro 100 unit/mL 100 unit subcut AC 04/24/21 02/05/22 subcutaneous cartridge (Humalog U-100 Insulin) methylprednisolone sod suc(PF) 125 125 mg IM MONTHLY 04/24/21 02/05/22 mg/2 mL solution for injection (Solu-Medrol (PF)) ondansetron 4 mg disintegrating 4 mg PO BID PRN 04/24/21 02/05/22 tablet (Zofran ODT) carvedilol 12.5 mg tablet 12.5 mg PO BID #180 tabs 08/07/21 02/05/22 benzonatate 100 mg capsule 100 mg PO BID PRN cough 7 days #14 04/11/22 caps cephalexin 500 mg tablet 500 mg PO BID 10 days #20 tabs 04/11/22 losartan 50 mg tablet 75 mg PO DAILY 04/11/22 Previous Rx's Medication Instructions Recorded aspirin 81 mg tablet,delayed 81 mg PO DAILY #100 tabs 04/12/21 release canagliflozin 100 mg tablet 100 mg PO DAILY #30 tabs 04/12/21 furosemide 40 mg tablet 40 mg PO BID #60 tabs 04/12/21 insulin glargine 100 unit/mL (3 50 unit (0.5 mL) SQ HS #0 mL 04/12/21 mL) subcutaneous pen (Lantus Solostar U-100 Insulin) magnesium oxide 400 mg (241.3 mg 400 mg PO BID #60 tabs 04/12/21 magnesium) tablet nitroglycerin 0.4 mg sublingual 0.4 mg sublingual Q5-15M PRN #30 04/12/21 tablet tabs carvedilol 12.5 mg tablet 12.5 mg PO BID #180 tabs 08/07/21 benzonatate 100 mg capsule 100 mg PO BID PRN cough 7 days #14 04/11/22 caps cephalexin 500 mg tablet 500 mg PO BID 10 days #20 tabs 04/11/22 Allergies Allergy/AdvReac Type Severity Reaction Status Date / Time methotrexate Allergy Skin Rash Verified 02/05/22 13:37 morphine Allergy Itching Verified 02/05/22 13:37 Gywuemt-CKG-OmM Reductase Allergy NECROTIZING Verified 02/05/22 13:37 Inhibitor MYOPATHY [Hffwlpb-Bth-Rgp Reductase Inhibitor] General Stated Complaint: GenMedical AURA: 3 Review of Systems All systems reviewed & are unremarkable except as noted in HPI and below Constitutional Constitutional: Reports as per HPI, Reports chills, Reports fever(s) and Reports headache(s) ENT Ears, Nose, Mouth, and Throat: Reports headache(s) Cardiovascular Cardiovascular: Denies chest pain, Reports claudication and Reports leg edema Respiratory Respiratory: Reports cough and Denies hemoptysis Gastrointestinal Gastrointestinal: Denies abdominal pain, Reports diarrhea and Reports nausea Neurologic Neurologic: Reports headache(s) PFSH All Active Problems (Updated 04/11/22 @ 14:02 by Grecia Brizuela NP) Diabetic ulcer of right great toe (Acute) Impacted cerumen of both ears (Acute) HTN (hypertension) (Chronic) Cirrhosis of liver (Acute) Subclavian vein thrombosis (Acute) Pulmonary embolism (Chronic) Myopathy (Acute) Barretts esophagus (Acute) Hearing deficit (Acute) Gout (Chronic) Epistaxis (Acute) Chronic anemia (Acute) Edema (Acute) Heart murmur, systolic (Acute) CALDERON (dyspnea on exertion) (Acute) Diastolic dysfunction (Acute) Renal insufficiency (Chronic) Excess ear wax (Acute) Weakness of both legs (Acute) Nocturnal cough (Acute) NSTEMI (non-ST elevated myocardial infarction) (Acute) Chronic kidney disease (Chronic) Medication monitoring encounter (Acute) Skin cancer, basal cell (Acute) face Diabetes mellitus (Chronic) Cardiomyopathy (Acute) Elevated troponin (Acute) Medical History Basal cell carcinoma, face Duodenitis DVT (deep venous thrombosis) Essential hypertension Hypercholesterolemia Hyperlipidemia 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 Sister Diabetes PATERNAL UNCLE Personal history of malignant neoplasm STOMACH Social History Smoking/Tobacco Use Status: Never Smoking risk assessment performed?: Yes Alcohol Intake: never Drug use: Never Do you feel safe at home: Yes Do you feel safe in your relationship?: Yes Exam Narrative Exam Narrative: Constitutional: Alert and oriented x3. Appears stated age. Normal body habitus. Head: Normocephalic, no trauma. Eyes: Pupils PERRL, Red reflex noted, EOM's intact. Eyelids symmetrical without lesions, discharge, or swelling. ENT: Bilateral TM's WNL, External ear normal to inspection, no mastoid TTP, sw elling, or erythema, Nasal turbinates WNL, no nasal discharge. Normal dentition, Posterior pharynx WNL, no exudate. Chest: RRR, Normal S1, S2, distal pulses intact. Port-A-Cath right anterior chest, Resp: Lungs clear to auscultation bilaterally, no wheezes, rales, or rhonchi. Abdomen: Soft, non-distended, Normoactive bowel sounds all 4 quads. Musculoskeletal: Unable to assess gait, 5/5 strength to all four extremities. 2+ nonpitting edema noted to his bilateral lower extremity Skin: He does have a chronic appearing diabetic ulcer noted to his plantar surface of right great toe, surrounding erythema and mild warmth noted which extends up to his mid kim, capillary refill less than 2 sec. Neurologic: Cranial nerves II-XII intact. Alert and oriented x 3. Motor: No deficits noted. Sensory: Intact bilaterally all 4 extremities. Reflexes: DTR's intact bilaterally.. Hematologic/Lymphatic: No ecchymosis, no lymphadenopathy. Course Vital Signs Vital signs: Vital Signs Temperature 39.0 C H 04/11/22 10:44 Pulse 88 04/11/22 10:44 Respiratory Rate 20 04/11/22 10:44 Blood Pressure 125/57 L 04/11/22 10:44 Pulse Oximetry 96 04/11/22 10:44 Temperature 39.0 C H 04/11/22 10:44 Temperature Source Temporal Artery Scan 04/11/22 10:44 Pulse 88 04/11/22 10:44 Respiratory Rate 20 04/11/22 10:44 Blood Pressure 125/57 L 04/11/22 10:44 Blood Pressure Position Sitting 04/11/22 10:44 Pulse Oximetry 96 04/11/22 10:44 Oxygen Delivery Method Room Air 04/11/22 10:44 Oxygen Flow Rate 0 04/11/22 10:44 Pain Level 5 04/11/22 10:44
[2022-04-11] MEDS: Ketorolac 15 MG/ML VIAL IVP (11:39)
[2022-04-11 11:40] LABS: Source Nasal/Nares
[2022-04-11] MEDS: Normal Saline 1,000 ML 250 ML IV (11:40)
[2022-04-11 11:43] LABS: Abs Immature Grans 0.03 10^3/uL (0.0-0.06); Absolute Basophil Count 0.02 10^3/uL (0.0-0.2); Absolute Lymphocyte Count 0.24 10^3/uL (1.2-3.4); Absolute Monocyte Count 0.54 10^3/uL (0.1-0.8); Absolute Neutrophil Count 8.01 10^3/uL (1.2-6.7); Basophils % 0.2; HCT 36.7 % (40.0-50.0); Immature Grans % 0.3; Lymphocytes % 2.7; MCH 32.9 pg (27.0-33.0); MCHC 32.7 % (32.0-36.0); MCV 101 fL (80-95); MPV 11.4 fL (8.0-11.0); Monocytes % 6.1; Neutrophils % 90.7; RBC 3.65 10^6/uL (4.36-5.78); RDW 14.6 % (11.8-14.1); RDW-SD 54.3 fL; WBC 8.84 10^3/uL (4.4-10.8)
[2022-04-11 11:45] LABS: Lactate 2.1 mmol/L (0.6-1.4)
[2022-04-11 11:48] VITALS: RESP 18
[2022-04-11 11:57] LABS: Platelet Count 55 10^3/uL (130-400)
[2022-04-11 11:58] LABS: Diff Comment Diff Reviewed; Polychromasia Present
[2022-04-11 12:01] LABS: ALT 44 U/L (16-63); AST 54 U/L (15-37); Albumin 2.9 g/dL (3.4-5.0); Alkaline Phosphatase 157 U/L (46-116); Anion Gap 9.2 mmol/L (3-11); BUN 62 mg/dL (7-18); CO2 23.8 mmol/L (21.0-32.0); CREATININE 2.4 mg/dL (0.70-1.30); Chloride 100 mmol/L (98-107); Creatine Kinase 111 U/L (39-308); Estimated GFR 29.39 (mL/min/1.73m2); Glucose 205 mg/dL (74-106); Lipase 246 U/L (73-393); Potassium 4.2 mmol/L (3.5-5.1); Sodium 133 mmol/L (136-145); Total Protein 7.9 g/dL (6.4-8.2)
[2022-04-11 12:12] LABS: COVID-19 PCR Negative (Negative)
[2022-04-11 13:41] LABS: Bilirubin Negative (Negative); Blood Moderate (Negative); Clarity Clear (Clear); Glucose >=1000 mg/dL (Negative); Ketones Negative (Negative); Leukocyte Esterase Negative (Negative); Nitrite Negative (Negative); Specific Gravity 1.015 (1.005-1.025); Urobilinogen 0.2 EU/dL (Up TO 0.2); pH 5.5 (5-8)
[2022-04-11 13:43] LABS: Lactate 1.9 mmol/L (0.6-1.4)
[2022-04-11] MEDS: Acetaminophen 500 MG TAB PO (13:46)
[2022-04-11 13:49] LABS: WBC 0-2 HPF (0-5)
[2022-04-11 13:50] LABS: Bacteria Rare HPF (Negative); C & S Indicated? No; Casts Negative LPF (Negative); Crystals Negative HPF (Negative); Epithelial Cells Few HPF (Negative); Mucus Negative (Negative)
[2022-04-11 14:25] VITALS: BP 132/86; PULSE 78; RESP 20; TEMP 37.7; O2SAT 98
[2022-04-11] MEDS: Cephalexin 500 MG CAP PO (14:25)
[2022-04-11] MEDS: Heparin 500 UNITS/5 ML SYRINGE (14:25)
== END 2022-04-11 14:27 | disposition home or self-care (01) ==
PROVIDERS: Emergency Provider Registered Nurse Emergency; PCP Family Medicine
DX: E11.621 Type 2 diabetes mellitus with foot ulcer (principal); L97.519 Non-pressure chronic ulcer of other part of right foot with unspecified severity; E11.22 Type 2 diabetes mellitus with diabetic chronic kidney disease; I12.9 Hypertensive chronic kidney disease with stage 1 through stage 4 chronic kidney disease, or unspecified chronic kidney disease; N18.9 Chronic kidney disease, unspecified; Z20.822 Contact with and (suspected) exposure to COVID-19; R05.9 Cough, unspecified; R60.0 Localized edema
CPT/HCPCS: 80053; 82550; 83690; 87635; 96361; 96374; 99284; 71046; 81003; 81015; 83605; 83735; 85025; 93970; J1885

== ENCOUNTER 2022-04-12 17:59 | Inpatient (IN) | payer MEDICARE, SELFPAY ==
[2022-04-12 18:10] VITALS: BP 122/78; PULSE 78; RESP 18; TEMP 36.8; O2SAT 99
--- NOTE | 2022-04-12 19:02 | ED.GENADUL_ITS ---
Discharge Plan Disposition Patient Disposition: STILL A PATIENT Condition: Stable Discharge Details Clinical Impression: Lower extremity cellulitis Primary Care Provider: Jazmine Baer V ED Provider: Luzi Richey [place] Meds and New Rx's Prescriptions: No Action Aranesp (in polysorbate) 60 mcg/mL solution 60 mcg IV Q2W PRN Label Comments: Through [facility] Outpatient Infusion Venofer 200 mg iron/10 mL solution 300 mg IV .Q30 PRN Label Comments: Through [facility] Outpatient Infusion Rx Instructions: administer over 30 mins carvedilol 12.5 mg tablet 12.5 mg PO BID Qty: 180 3RF Rx Instructions: must administer with a meal/food GAMAGUARD IVIG MONTHLY FOR 2 DAYS ondansetron [Zofran ODT] 4 mg tablet,disintegrating 4 mg PO BID PRN colchicine 0.6 mg capsule 0.6 mg PO DIRECTED epoetin matt 20,000 unit/mL solution 20,000 unit subcut .every other week Solu-Medrol (PF) 125 mg/2 mL recon soln 125 mg IM MONTHLY Humalog U-100 Insulin 100 unit/mL cartridge 100 unit subcut AC Label Comments: sliding scale Rx Instructions: as directed multivitamin [Daily Multi-Vitamin] 1 EACH tablet 1 tab PO DAILY allopurinol 100 mg tablet 400 mg PO DAILY aspirin 81 mg Tablet,Delayed Release (Dr/Ec) 81 mg PO DAILY Qty: 100 0RF magnesium oxide 400 mg (241.3 mg magnesium) Tablet 400 mg PO BID Qty: 60 1RF furosemide 40 mg tablet 40 mg PO BID Qty: 60 0RF canagliflozin 100 mg tablet 100 mg PO DAILY Qty: 30 1RF insulin glargine [Lantus Solostar U-100 Insulin] 100 UNIT/1 ML insulin pen 50 unit SQ HS Qty: 0 0RF nitroglycerin 0.4 mg tablet, sublingual 0.4 mg sublingual Q5-15M PRNQty: 30 0RF Rx Instructions: do not exceed 3 doses per episode losartan 50 mg tablet 75 mg PO DAILY cephalexin 500 mg tablet 500 mg PO BID 10 Days Qty: 20 0RF benzonatate 100 mg capsule 100 mg PO BID PRN (Reason: cough) 7 Days Qty: 14 0RF Rx Instructions: Take one tablet twice daily as needed for cough Medical Decision Making Patient presenting with worsening leg pain, redness, rash. He was started on cephalexin yesterday for presumed cellulitis. He had ultrasound of both legs yesterday which were negative. He has a cough but a negative chest x-ray yesterday. At this point he has erythematous vasculitic type rash which is exquisitely tender to palpation. He does have history of chronic kidney disease and cannot have IV contrast. I will get a CT of the right lower extremity to evaluate for possible necrotizing fasciitis. IV ordered with repeat laboratory studies, fluids, vancomycin, Unasyn. Patient be signed out to oncoming physician for follow-up of studies and disposition/admission. Medical Records Medical records reviewed: Yes I reviewed the patient's medical records. HPI General Mode of arrival: wheelchair . Date/Time Provider Initiated Documentation: 04/12/22 18:18 . Information obtained by: patient . HPI Narrative: Patient returns to ED with worsening right lower extremity pain, swelling, redness. He now has redness and purplish rash present. He has exquisite tenderness anywhere you touch his leg on the right from the knee down. He was seen here yesterday and started on cephalexin for presumed cellulitis. He reports that initially he thought it was related to gout and did try colchicine which gave him vomiting and diarrhea. He did have fever to 102 yesterday. He also has cough but denies chest pain or shortness of breath. He is unable to ambulate at this time. He has not had fever at home today. He denies chills. Related Data Home Medications Medication Instructions Recorded Confirmed Gamaguard Ivig MONTHLY FOR 2 DAYS 09/18/12 02/05/22 multivitamin (Daily Multi-Vitamin 1 tab PO DAILY 11/23/13 04/12/22 tablet) allopurinol 100 mg tablet 400 mg PO DAILY 04/10/21 04/12/22 aspirin 81 mg tablet,delayed 81 mg PO DAILY #100 tabs 04/12/21 04/12/22 release canagliflozin 100 mg tablet 100 mg PO DAILY #30 tabs 04/12/21 04/12/22 furosemide 40 mg tablet 40 mg PO BID #60 tabs 04/12/21 04/12/22 insulin glargine 100 unit/mL (3 50 unit (0.5 mL) SQ HS #0 mL 04/12/21 04/12/22 mL) subcutaneous pen (Lantus Solostar U-100 Insulin) magnesium oxide 400 mg (241.3 mg 400 mg PO BID #60 tabs 04/12/21 04/12/22 magnesium) tablet nitroglycerin 0.4 mg sublingual 0.4 mg sublingual Q5-15M PRN #30 04/12/21 04/12/22 tablet tabs darbepoetin matt in polysorbat 60 60 mcg IV Q2W PRN 04/20/21 04/12/22 mcg/mL in polysorbate injection (Aranesp) iron sucrose 200 mg iron/10 mL 300 mg IV .Q30 PRN 04/20/21 04/12/22 intravenous solution (Venofer) colchicine 0.6 mg capsule 0.6 mg PO DIRECTED 04/24/21 04/12/22 epoetin matt 20,000 unit/mL 20,000 unit subcut .every other 04/24/21 04/12/22 injection solution week insulin lispro 100 unit/mL 100 unit subcut AC 04/24/21 04/12/22 subcutaneous cartridge (Humalog U-100 Insulin) methylprednisolone sod suc(PF) 125 125 mg IM MONTHLY 04/24/21 04/12/22 mg/2 mL solution for injection (Solu-Medrol (PF)) ondansetron 4 mg disintegrating 4 mg PO BID PRN 04/24/21 04/12/22 tablet (Zofran ODT) carvedilol 12.5 mg tablet 12.5 mg PO BID #180 tabs 08/07/21 04/12/22 benzonatate 100 mg capsule 100 mg PO BID PRN cough 7 days #14 04/11/22 04/12/22 caps cephalexin 500 mg tablet 500 mg PO BID 10 days #20 tabs 04/11/22 04/12/22 losartan 50 mg tablet 75 mg PO DAILY 04/11/22 04/12/22 Previous Rx's Medication Instructions Recorded aspirin 81 mg tablet,delayed 81 mg PO DAILY #100 tabs 04/12/21 release canagliflozin 100 mg tablet 100 mg PO DAILY #30 tabs 04/12/21 furosemide 40 mg tablet 40 mg PO BID #60 tabs 04/12/21 insulin glargine 100 unit/mL (3 50 unit (0.5 mL) SQ HS #0 mL 04/12/21 mL) subcutaneous pen (Lantus Solostar U-100 Insulin) magnesium oxide 400 mg (241.3 mg 400 mg PO BID #60 tabs 04/12/21 magnesium) tablet nitroglycerin 0.4 mg sublingual 0.4 mg sublingual Q5-15M PRN #30 04/12/21 tablet tabs carvedilol 12.5 mg tablet 12.5 mg PO BID #180 tabs 08/07/21 benzonatate 100 mg capsule 100 mg PO BID PRN cough 7 days #14 04/11/22 caps cephalexin 500 mg tablet 500 mg PO BID 10 days #20 tabs 04/11/22 Allergies Allergy/AdvReac Type Severity Reaction Status Date / Time methotrexate Allergy Skin Rash Verified 02/05/22 13:37 morphine Allergy Itching Verified 02/05/22 13:37 [id number] Reductase Allergy NECROTIZING Verified 02/05/22 13:37 Inhibitor MYOPATHY [Utuqkxe-Fpw-Ofe Reductase Inhibitor] General Stated Complaint: Cellulitis AURA: 3 Review of Systems Narrative: 03/23 Review of Systems completed and is negative except as stated above in HPI (Systems reviewed: Const, Eyes, ENT, Resp, CV, GI, , MSK, Skin, Neuro) PFSH All Active Problems (Updated 04/12/22 @ 19:59 by Luiz Richey MD) Lower extremity cellulitis (Acute) Renal insufficiency (Chronic) Diabetic ulcer of right great toe (Acute) Impacted cerumen of both ears (Acute) HTN (hypertension) (Chronic) Cirrhosis of liver (Acute) Subclavian vein thrombosis (Acute) Myopathy (Acute) Barretts esophagus (Acute) Hearing deficit (Acute) Epistaxis (Acute) Chronic anemia (Acute) Edema (Acute) Heart murmur, systolic (Acute) CALDERON (dyspnea on exertion) (Acute) Diastolic dysfunction (Acute) Excess ear wax (Acute) Weakness of both legs (Acute) Nocturnal cough (Acute) Medication monitoring encounter (Acute) Skin cancer, basal cell (Acute) face Elevated troponin (Acute) Medical History Basal cell carcinoma, face Cardiomyopathy Chronic kidney disease Diabetes mellitus Duodenitis DVT (deep venous thrombosis) Essential hypertension Gout Hypercholesterolemia 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 Sister Diabetes PATERNAL UNCLE Personal history of malignant neoplasm STOMACH Social History Smoking/Tobacco Use Status: Never Smoking risk assessment performed?: Yes Alcohol Intake: never Drug use: Never Do you feel safe at home: Yes Do you feel safe in your relationship?: Yes Exam Narrative Exam Narrative: Const: Obese male sitting in wheelchair in NAD. HEENT: NC/AT. Normal facial exam. Eyes: Normal conjunctiva and sclera. Neck: Supple. Trachea midline. Lungs: Normal respiratory effort. Lungs are clear. Cor: RRR with murmur. Good radial pulses. DP pulses also present. GI: Soft. NT/ND. Neuro: A+O x 3. Normal speech, mentation. Cranial nerves II - XII grossly intact. No gross motor or sensory deficit. Ext: Bilateral lower extremity edema right greater than left. Erythematous as well as vasculitic type rash from the knee down. Significant tenderness to any palpation in same area. I do not appreciate crepitus but he cannot tolerate palpation. Skin: Warm and dry with rash. Course Vital Signs Vital signs: Vital Signs Temperature 98.2 F 04/12/22 18:10 Pulse 78 04/12/22 18:10 Respiratory Rate 18 04/12/22 18:10 Blood Pressure 122/78 04/12/22 18:10 Pulse Oximetry 99 04/12/22 18:10 Temperature 98.2 F 04/12/22 18:10 Temperature Source Temporal Artery Scan 04/12/22 18:10 Pulse 78 04/12/22 18:10 Respiratory Rate 18 04/12/22 18:10 Blood Pressure 122/78 04/12/22 18:10 Blood Pressure Position Sitting 04/12/22 18:10 Pulse Oximetry 99 04/12/22 18:10 Oxygen Delivery Method Room Air 04/12/22 18:10 Oxygen Flow Rate 0 04/12/22 18:10
--- NOTE | 2022-04-12 19:15 | DI.CT_ITS ---
Exam(s) CT LOWER EXTREMITY RT WO EXAM: CT LOWER EXTREMITY RT WO CLINICAL HISTORY: swelling, worsening redness/rash, pain. TECHNIQUE: Imaging Protocol: Axial computed tomography images with coronal and sagittal reformatted images were created and reviewed. CONTRAST MATERIAL: Intravenous: None COMPARISON: No exams were available for comparison FINDINGS: OSSEOUS: No fractures and no radiographic evidence of osteomyelitis in the tibia and fibula and bones of the feet. No evidence of knee joint effusion. There is some soft tissues swelling and subcutaneous edema throughout the cath, ankle and foot region but there is no distinct fluid collection to suggest abscess nor hematoma. Mild degenerative changes in the foot, most evident at talonavicular joint. No significant erosions. No evidence of osteomyelitis. Small inferior calcaneal spur noted. Incidentally noted is vascular calcification in the vessels of the calf indicating atherosclerotic in volvement. IMPRESSION: There is soft tissue swelling and subcutaneous edema in the calf, ankle, and foot which is either rel ated to edema or cellulitis. There is no radiopaque foreign body and there is no evidence of focal f luid collection to suggest the presence of hematoma or abscess. There is no evidence of knee joint effusion and there is no evidence of osteomyelitis. RADIATION DOSE DELIVERED: 543.93mGy.cm Total DLP DATA REPOSITORY: All CT scans at this facility are submitted to the National Radiology Data Registry (NRDR) Dose Index Registry (DIR) with the [employer] ([employer]). RADIATION OPTIMIZATION: All CT scans at this facility use at least one of these dose optimization te chniques: automated exposure control; mA and/or kV adjustment per patient size (includes targeted exa ms where dose is matched to clinical indication); or iterative reconstruction.
--- NOTE | 2022-04-12 20:20 | DI.VRAD_ITS ---
PROCEDURE INFORMATION: Exam: CT Right Lower Extremity Without Contrast; Lower Leg Exam date and time: 04/12/2022 7:48 PM Age: 62 years old Clinical indication: Lower leg; Patient HX: Redness, swelling and increased pain on right leg, from right knee to toes. TECHNIQUE: Imaging protocol: CT of the Right lower extremity without contrast was performed. Exam focused on the lower leg. Radiation optimization: All CT scans at this facility use at least one of these dose optimization techniques: automated exposure control; mA and/or kV adjustment per patient size (includes targeted exams where dose is matched to clinical indication); or iterative reconstruction. COMPARISON: US EXTREMITY VENOUS BI 04/11/2022 12:46 PM FINDINGS: Bones/joints: Nonspecific soft tissue swelling which is most pronounced in the dorsal forefoot and midfoot and extending circumferentially around the ankle and mid to distal lower leg. This could represent edema or cellulitis. No soft tissue air. There are no fluid collections suggestive of abscess or hematoma. No fracture or dislocation. Sclerosis and sclerotic erosions in the sesamoids at the 1st MTP joint with a few sclerotic erosions at the medial margin of the 1st metatarsal head and in the midfoot articulations. History of gout is provided on the comparison lower extremity ultrasound exam 04/11/2022, and this may represent changes of chronic gout arthropathy. No knee joint effusion. Mild patellar spurring. No changes of osteomyelitis or septic joint. Mild plantar calcaneal spurring and slight spurring at the Achilles attachment zone. Mild anterior tibial plafond spurring. Moderate dorsal talonavicular spurring. Soft tissues: See Bones/joints finding. Vasculature: There is severe calcific atherosclerosis. IMPRESSION: 1. Nonspecific soft tissue swelling in the right lower extremity involving the foot, ankle, and lower leg. This could represent edema or cellulitis. No soft tissue air or foreign body. No fluid collections suggestive of abscess or hematoma. 2. No changes of osteomyelitis or septic joint. 3. A few small sclerotic erosions are present in the 1st metatarsal head and adjacent sesamoids, and at multiple midfoot articulations, possibly representing chronic erosive changes of gout arthropathy. 4. Severe calcific atherosclerosis. Dictated and Authenticated by: Jayson Morales MD. Ordering:MARIELA Dee MD
[2022-04-12 20:22] LABS: Lactate 2.8 mmol/L (0.6-1.4)
[2022-04-12] MEDS: HYDROmorphone 2 MG/ML SYR 0.5 MG IVP (20:22)
[2022-04-12 20:26] LABS: Abs Immature Grans 0.05 10^3/uL (0.0-0.06); Absolute Basophil Count 0.05 10^3/uL (0.0-0.2); Absolute Eosinophil Count 0.05 10^3/uL (0.0-0.7); Absolute Lymphocyte Count 0.52 10^3/uL (1.2-3.4); Absolute Monocyte Count 1.04 10^3/uL (0.1-0.8); Absolute Neutrophil Count 8.23 10^3/uL (1.2-6.7); Basophils % 0.5; Eosinophils % 0.5; HCT 36.9 % (40.0-50.0); HGB 12.1 g/dL (13.5-17.5); Immature Grans % 0.5; Lymphocytes % 5.2; MCH 32.9 pg (27.0-33.0); MCHC 32.8 % (32.0-36.0); MCV 100 fL (80-95); MPV 11.5 fL (8.0-11.0); Monocytes % 10.5; Neutrophils % 82.8; RBC 3.68 10^6/uL (4.36-5.78); RDW 14.9 % (11.8-14.1); RDW-SD 55.8 fL; WBC 9.94 10^3/uL (4.4-10.8)
[2022-04-12] MEDS: AMPICILLIN/SULBACTAM 3 GM in Normal Saline 100 ML IVPB (20:27)
--- NOTE | 2022-04-12 20:34 | NUR.NOTE ---
[place] accessed using asseptic technique, without issue, good blood No, labs drawn, central line cover applied. retrurnte:
--- NOTE | 2022-04-12 20:39 | ED.PROG_ITS ---
Date of service: 04/12/22 Time of Service: 20:39 Medical Decision Making Received signout from Dr. Richey. Please see his note regarding details of the initial presentation, exam and plan of care. CT exam reveals soft tissue swelling most pronounced in the dorsal forefoot and midfoot, no soft tissue air, no fluid collections suggestive of abscess. No fracture or dislocation. There is sclerosis and erosion present. No changes of osteomyelitis or septic joint. Laboratories note an elevated lactic acid of 2.8, white blood cell count 9, 36, platelets 77. Chemistries show sodium 133, testing 3.4, BUN 75 and creatinine 2.6. He will require admission for further management of lower extremity cellulitis versus vasculitis. Sign Out Sign Out Data: Sign Out Comment: Worsening lower extremity infection ordered for Vanco and Unasyn. Noncontrast CT of leg and labs pending. Last updated by Luiz Richey MD at 04/12/22 20:04 Discharge Plan Disposition Patient Disposition: [facility] INPATIENT Condition: Stable Discharge Details Clinical Impression: Lower extremity cellulitis Primary Care Provider: Jazmine Baer V ED Provider: Slade Tiwari Home Meds and New Rx's Prescriptions: No Action Aranesp (in polysorbate) 60 mcg/mL solution 60 mcg IV Q2W PRN Label Comments: Through [facility] Outpatient Infusion Venofer 200 mg iron/10 mL solution 300 mg IV .Q30 PRN Label Comments: Through [facility] Outpatient Infusion Rx Instructions: administer over 30 mins carvedilol 12.5 mg tablet 12.5 mg PO BID Qty: 180 3RF Rx Instructions: must administer with a meal/food GAMAGUARD IVIG MONTHLY FOR 2 DAYS ondansetron [Zofran ODT] 4 mg tablet,disintegrating 4 mg PO BID PRN colchicine 0.6 mg capsule 0.6 mg PO DIRECTED epoetin matt 20,000 unit/mL solution 20,000 unit subcut .every other week Solu-Medrol (PF) 125 mg/2 mL recon soln 125 mg IM MONTHLY Humalog U-100 Insulin 100 unit/mL cartridge 100 unit subcut AC Label Comments: sliding scale Rx Instructions: as directed multivitamin [Daily Multi-Vitamin] 1 EACH tablet 1 tab PO DAILY allopurinol 100 mg tablet 400 mg PO DAILY aspirin 81 mg Tablet,Delayed Release (Dr/Ec) 81 mg PO DAILY Qty: 100 0RF magnesium oxide 400 mg (241.3 mg magnesium) Tablet 400 mg PO BID Qty: 60 1RF furosemide 40 mg tablet 40 mg PO BID Qty: 60 0RF canagliflozin 100 mg tablet 100 mg PO DAILY Qty: 30 1RF insulin glargine [Lantus Solostar U-100 Insulin] 100 UNIT/1 ML insulin pen 50 unit SQ HS Qty: 0 0RF nitroglycerin 0.4 mg tablet, sublingual 0.4 mg sublingual Q5-15M PRNQty: 30 0RF Rx Instructions: do not exceed 3 doses per episode losartan 50 mg tablet 75 mg PO DAILY cephalexin 500 mg tablet 500 mg PO BID 10 Days Qty: 20 0RF benzonatate 100 mg capsule 100 mg PO BID PRN (Reason: cough) 7 Days Qty: 14 0RF Rx Instructions: Take one tablet twice daily as needed for cough
[2022-04-12 20:40] LABS: Platelet Count 77 10^3/uL (130-400)
[2022-04-12 20:42] LABS: Anion Gap 10.2 mmol/L (3-11); BUN 75 mg/dL (7-18); CO2 22.8 mmol/L (21.0-32.0); CREATININE 2.6 mg/dL (0.70-1.30); Chloride 100 mmol/L (98-107); Glucose 96 mg/dL (74-106); Potassium 3.4 mmol/L (3.5-5.1); Sodium 133 mmol/L (136-145)
[2022-04-12 20:53] LABS: Creatine Kinase 82 U/L (39-308)
[2022-04-12] MEDS: VANCOMYCIN 2,000 MG in Normal Saline 500 ML 250 MG IVPB (21:38)
[2022-04-12 22:04] LABS: Lab Add On Test DONE
[2022-04-12 22:20] LABS: Hemoglobin A1C 6.7 % (<5.7)
[2022-04-12 22:32] LABS: Source Nasal/Nares
[2022-04-12 22:49] VITALS: BP 148/88; PULSE 102; RESP 18; TEMP 36.7; O2SAT 92
[2022-04-12 23:04] LABS: COVID-19 PCR Negative (Negative)
[2022-04-13 00:16] VITALS: BP 119/78; PULSE 78; RESP 18; TEMP 37.3; O2SAT 100
[2022-04-13 00:44] VITALS: TEMP 37.3
[2022-04-13] MEDS: Acetaminophen 325 MG TAB PO (00:44)
[2022-04-13] MEDS: Normal Saline 1,000 ML 150 ML IV (00:45)
[2022-04-13] MEDS: Normal Saline Flush 10 ML SYR IVP ×4 (02:26→12:03)
[2022-04-13] MEDS: AMPICILLIN/SULBACTAM 3 GM in Normal Saline 100 ML IVPB ×4 (02:26→19:07)
[2022-04-13 03:40] VITALS: BP 109/56; PULSE 70; RESP 18; TEMP 37.4; O2SAT 98
--- NOTE | 2022-04-13 04:45 | W.PM.HP.N ---
Date of service: 04/12/22 Time of Service: 21:01 Assessment and Plan Assessment and plan (1) Lower extremity cellulitis: Status: Acute Assessment and plan: Appearance of scattered nonblancing petechial rash suggests vasculitis. If cellulitis is present, the likely source is chronic toe ulcer. Cont Unsasyn and vancomycin but consider stopping. MRSA screen. (2) Diabetic ulcer of right great toe: Status: Acute Assessment and plan: Does not appear currently to show acute infection. (3) Cirrhosis of liver: Status: Acute Assessment and plan: Stable with total bilirubin of 1.0, mild AST elevation of 54 a nd normal ALT of 44. (4) Cardiomyopathy: Assessment and plan: HFrEF. No evidence of decompensation. Echo on 01/18/22: EF est. of 35-40%. Mod to severely dilated left ventricle. Mild aortic stenosis. Qualifiers: Cardiomyopathy type: dilated Qualified Code(s): I42.0 - Dilated cardiomyopathy (5) Acute on chronic renal insufficiency: Status: Acute Assessment and plan: Baselin creatinine in the 1.7-2.0 range in January/Feb/Mar of this year. Creatinine now 2.6. He received a 1L IV bolus of LR in the ED and placed on NS at 150/hr. Will hold IV fluids at this time and evaluate creatinine with morning lab draw. Concerned about risk of volume overload given HFrEF. (6) Essential hypertension: Assessment and plan: Holding Losartan d/t acute on chronic renal insuff. SBP range since admission of 109-148; monitor. (7) Gout: Assessment and plan: Cont allopurinol. Check uric acid level. There could be a compenent of gout in the right great toe. (8) Diabetes mellitus: Assessment and plan: Basal/bolus insulin. SS correction insulin dosing ACHS glucose monitoring. diabetic diet. Likely will see elevations related to steroids being used for vasculitis treatment. Qualifiers: Chronic kidney disease stage: stage 3 (moderate) Chronic kidney disease stage 3 subtype: stage 3b (GFR 30-44) Diabetes mellitus complication detail: with chronic kidney disease Diabetes mellitus complication status: with kidney complications Diabetes mellitus longterm insulin use: with tank terminal gauger use Diabetes mellitus type: type 2 Qualified Code(s): E11.22 - Type 2 diabetes mellitus with diabetic chronic kidney disease; N18.32 - Chronic kidney disease, stage 3b; Z79.4 - tank terminal gauger (current) use of insulin (9) Vasculitis: Status: Acute Assessment and plan: CRP pending. Likely elevated and also influenced by other chronic disease states. High-dose prednisone indicated for vasculitis; 1mg/kg/day. Will give an initial dose of 80mg and if bx is positive, could escalate to 1mg/kg/day for the suggested 1 month, then taper. Bx will need to be obtained. History of Present Illness History of Present Illness Chief Complaint: Right lower extremity redness and pain Narrative: This is a 62 yo male with a PMH of DM2, HTN, CKD, NSTEMIS, pulmonary embolism, cardiomyopathy, Cirrhosis, Barretts esophagus, chronic anemia. He presents with pain and rash in the RLE. He was seen the previous day in the ED with then of bilateral foot pain R>L, fever and one episode of emesis. He attributed his RLE foot pain to gout. US of BLEs were negative for DVT. Temp of 39.9, then decreased to 37.7. With IV toradol and fluids he felt better. His lactate was noted to be 2.1 then decreased to 1.9 after fluid administration. CXR and UA were neative. He was noted to have a right toe wound that is chronic; some erthema at the site noted, but no drainage. Keflex prescribed. He returned on this date because of worsening symptoms in the RLE. He also was noted to have a cough at time of both ED visits; CXR negative. WBC counts normal. CT of RLE was negative for evidence of faciitis or abscess. He was started on Unasyn and vancomycin. Review of Systems All systems reviewed & are unremarkable except as noted in HPI and below PFSH All Active Problems (Updated 04/13/22 @ 05:16 by Braeden Lagos MD) Vasculitis (Acute) Acute on chronic renal insufficiency (Acute) Lower extremity cellulitis (Acute) Renal insufficiency (Chronic) Diabetic ulcer of right great toe (Acute) Impacted cerumen of both ears (Acute) HTN (hypertension) (Chronic) Cirrhosis of liver (Acute) Subclavian vein thrombosis (Acute) Myopathy (Acute) Barretts esophagus (Acute) Hearing deficit (Acute) Epistaxis (Acute) Chronic anemia (Acute) Edema (Acute) Heart murmur, systolic (Acute) CALDERON (dyspnea on exertion) (Acute) Diastolic dysfunction (Acute) Excess ear wax (Acute) Weakness of both legs (Acute) Nocturnal cough (Acute) Medication monitoring encounter (Acute) Skin cancer, basal cell (Acute) face Elevated troponin (Acute) Medical History Basal cell carcinoma, face Cardiomyopathy Chronic kidney disease Diabetes mellitus Duodenitis DVT (deep venous thrombosis) Essential hypertension Gout Hypercholesterolemia 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 Sister Diabetes PATERNAL UNCLE Personal history of malignant neoplasm STOMACH Social History Smoking/Tobacco Use Status: Never Smoking risk assessment performed?: Yes Alcohol Intake: never Drug use: Never Do you feel safe at home: Yes Do you feel safe in your relationship?: Yes Meds Allergies and Home Medications Allergies Allergy/AdvReac Type Severity Reaction Status Date / Time methotrexate Allergy Skin Rash Verified 02/05/22 13:37 morphine Allergy Itching Verified 02/05/22 13:37 Sqbifqr-HGE-OoY Reductase Allergy NECROTIZING Verified 02/05/22 13:37 Inhibitor MYOPATHY [Perlhsp-Wye-Rjr Reductase Inhibitor] Home Medications Medication Instructions Recorded Confirmed Type Gamaguard Ivig MONTHLY FOR 2 DAYS 09/18/12 02/05/22 History multivitamin (Daily Multi-Vitamin 1 tab PO DAILY 11/23/13 04/12/22 History tablet) allopurinol 100 mg tablet 400 mg PO DAILY 04/10/21 04/12/22 History aspirin 81 mg tablet,delayed 81 mg PO DAILY #100 tabs 04/12/21 04/12/22 Rx release canagliflozin 100 mg tablet 100 mg PO DAILY #30 tabs 04/12/21 04/12/22 Rx furosemide 40 mg tablet 40 mg PO BID #60 tabs 04/12/21 04/12/22 Rx insulin glargine 100 unit/mL (3 50 unit (0.5 mL) SQ HS #0 mL 04/12/21 04/12/22 Rx mL) subcutaneous pen (Lantus Solostar U-100 Insulin) magnesium oxide 400 mg (241.3 mg 400 mg PO BID #60 tabs 04/12/21 04/12/22 Rx magnesium) tablet nitroglycerin 0.4 mg sublingual 0.4 mg sublingual Q5-15M PRN #30 04/12/21 04/12/22 Rx tablet tabs darbepoetin matt in polysorbat 60 60 mcg IV Q2W PRN 04/20/21 04/12/22 History mcg/mL in polysorbate injection (Aranesp) iron sucrose 200 mg iron/10 mL 300 mg IV .Q30 PRN 04/20/21 04/12/22 History intravenous solution (Venofer) colchicine 0.6 mg capsule 0.6 mg PO DIRECTED 04/24/21 04/12/22 History epoetin matt 20,000 unit/mL 20,000 unit subcut .every other 04/24/21 04/12/22 History injection solution week insulin lispro 100 unit/mL 100 unit subcut AC 04/24/21 04/12/22 History subcutaneous cartridge (Humalog U-100 Insulin) methylprednisolone sod suc(PF) 125 125 mg IM MONTHLY 04/24/21 04/12/22 History mg/2 mL solution for injection (Solu-Medrol (PF)) ondansetron 4 mg disintegrating 4 mg PO BID PRN 04/24/21 04/12/22 History tablet (Zofran ODT) carvedilol 12.5 mg tablet 12.5 mg PO BID #180 tabs 08/07/21 04/12/22 Rx benzonatate 100 mg capsule 100 mg PO BID PRN cough 7 days #14 04/11/22 04/12/22 Rx caps cephalexin 500 mg tablet 500 mg PO BID 10 days #20 tabs 04/11/22 04/12/22 Rx losartan 50 mg tablet 75 mg PO DAILY 04/11/22 04/12/22 History Exam Narrative Exam Narrative: Const:? Obese. Asleep / easily arousable. Eyes:? Normal conjunctiva and sclera. MINESH Neck:? Supple.? FROM Lungs:? Normal respiratory effort.? Lungs are clear. Cor:? RRR with murmur.? Good radial pulses GI:? Soft.? NT/ND. Neuro:? A+O x 3.? Normal speech, mentation. No gross motor or sensory deficit. Ext: Bilateral lower extremity edema right greater than left.?Scattered petechial rash below the knee on the right. No confuluent erythema. Significant tenderness to any palpation in same area.? Skin:?As above. Plantar aspect of right great toe ulcer with eschar, no drainage. Psych: Affect appropriate. General appearance normal. Results Labs Result diagrams: 04/13/22 06:50 04/13/22 06:50 Labs: Laboratory Results - last 24 hr 04/12/22 04/12/22 04/12/22 20:09 20:09 20:09 WBC 9.94 RBC 3.68 L Hgb 12.1 L Hct 36.9 L MCV 100 H MCH 32.9 MCHC 32.8 RDW 14.9 H Plt Count 77 L MPV 11.5 H Immature Gran % 0.5 Neutrophils % 82.8 Lymphocytes % 5.2 Monocytes % 10.5 Eosinophils % 0.5 Basophils % 0.5 Nucleated RBC % 0.0 Absolute Neutrophils 8.23 H Absolute Lymphocytes 0.52 L Absolute Monocytes 1.04 H Absolute Eosinophils 0.05 Absolute Basophils 0.05 VBG Lactate 2.8 H* Sodium 133 L Potassium 3.4 L Chloride 100 Carbon Dioxide 22.8 Anion Gap 10.2 BUN 75 H Creatinine 2.6 H Est GFR (CKD-EPI 2020) 26.70 Glucose 96 Hemoglobin A1c Calcium 9.0 Creatine Kinase COVID-19 Source SARS-CoV-2 (PCR) Add-On Test Request 04/12/22 04/12/22 04/12/22 20:09 20:09 20:09 WBC RBC Hgb Hct MCV MCH MCHC RDW Plt Count MPV Immature Gran % Neutrophils % Lymphocytes % Monocytes % Eosinophils % Basophils % Nucleated RBC % Absolute Neutrophils Absolute Lymphocytes Absolute Monocytes Absolute Eosinophils Absolute Basophils VBG Lactate Sodium Potassium Chloride Carbon Dioxide Anion Gap BUN Creatinine Est GFR (CKD-EPI 2020) Glucose Hemoglobin A1c 6.7 H Calcium Creatine Kinase 82 COVID-19 Source SARS-CoV-2 (PCR) Add-On Test Request DONE 04/12/22 22:30 WBC RBC Hgb Hct MCV MCH MCHC RDW Plt Count MPV Immature Gran % Neutrophils % Lymphocytes % Monocytes % Eosinophils % Basophils % Nucleated RBC % Absolute Neutrophils Absolute Lymphocytes Absolute Monocytes Absolute Eosinophils Absolute Basophils VBG Lactate Sodium Potassium Chloride Carbon Dioxide Anion Gap BUN Creatinine Est GFR (CKD-EPI 2020) Glucose Hemoglobin A1c Calcium Creatine Kinase COVID-19 Source Nasal/Nares SARS-CoV-2 (PCR) Negative Add-On Test Request Last Vital Signs Temp 37.4 C 04/13/22 03:40 Pulse 70 04/13/22 03:40 Resp 18 04/13/22 03:40 BP 109/56 L 04/13/22 03:40 Pulse Ox 98 04/13/22 03:40
[2022-04-13 07:02] LABS: Lactate 1.1 mmol/L (0.6-1.4)
[2022-04-13 07:14] LABS: Abs Immature Grans 0.03 10^3/uL (0.0-0.06); Absolute Basophil Count 0.03 10^3/uL (0.0-0.2); Absolute Lymphocyte Count 0.38 10^3/uL (1.2-3.4); Absolute Monocyte Count 0.94 10^3/uL (0.1-0.8); Absolute Neutrophil Count 5.34 10^3/uL (1.2-6.7); Basophils % 0.4; Eosinophils % 1.5; HCT 32.2 % (40.0-50.0); HGB 10.5 g/dL (13.5-17.5); Immature Grans % 0.4; Lymphocytes % 5.6; MCH 33.1 pg (27.0-33.0); MCHC 32.6 % (32.0-36.0); MCV 102 fL (80-95); MPV 12.5 fL (8.0-11.0); Monocytes % 13.8; Neutrophils % 78.3; RBC 3.17 10^6/uL (4.36-5.78); RDW-SD 56.2 fL; WBC 6.82 10^3/uL (4.4-10.8)
[2022-04-13 07:42] LABS: ALT 36 U/L (16-63); AST 40 U/L (15-37); Albumin 2.2 g/dL (3.4-5.0); Alkaline Phosphatase 131 U/L (46-116); Anion Gap 10.1 mmol/L (3-11); BUN 71 mg/dL (7-18); Bilirubin, Total 0.6 mg/dL (0.2-1.0); CO2 22.9 mmol/L (21.0-32.0); CREATININE 2.4 mg/dL (0.70-1.30); Calcium 8.5 mg/dL (8.5-10.1); Chloride 104 mmol/L (98-107); Estimated GFR 29.39 (mL/min/1.73m2); Glucose 157 mg/dL (74-106); Potassium 3.3 mmol/L (3.5-5.1); Sodium 137 mmol/L (136-145); Total Protein 6.7 g/dL (6.4-8.2)
[2022-04-13 07:44] LABS: C-Reactive Protein 18.91 mg/dL (0.0-0.3)
[2022-04-13 07:45] LABS: Uric Acid 4.6 mg/dL (3.5-7.2)
[2022-04-13 07:52] LABS: Platelet Count 56 10^3/uL (130-400)
[2022-04-13 07:58] VITALS: BP 135/77; PULSE 70; RESP 18; TEMP 37.2; O2SAT 97
[2022-04-13] MEDS: Carvedilol 12.5 MG TAB PO ×2 (08:18→19:08)
[2022-04-13] MEDS: Allopurinol 100 MG TAB 400 MG PO (08:18)
[2022-04-13] MEDS: predniSONE 20 MG TAB 80 MG PO (08:18)
[2022-04-13] MEDS: Aspirin E.C. 81 MG TABEC PO (08:19)
[2022-04-13] MEDS: Magnesium Oxide 400 MG TAB PO ×2 (08:19→19:08)
[2022-04-13] MEDS: Insulin Aspart 300 UNITS/3 ML PEN SC ×3 (08:19→16:55)
[2022-04-13] MEDS: Potassium Chloride 10 MEQ CAPCR 40 MEQ PO (08:58)
[2022-04-13 09:00] LABS: ESR 72 mm/hr (0-20)
[2022-04-13 09:35] LABS: Lab Add On Test DONE
[2022-04-13 09:36] LABS: Procalcitonin 23.8 ng/mL
[2022-04-13] MEDS: HYDROmorphone 2 MG/ML SYR 0.5 MG IVP ×2 (12:03→19:07)
--- NOTE | 2022-04-13 12:34 | INITIAL_ITS ---
- If Service Date Differs Date of service: 04/13/22 Time of Service: 12:34 Care Management Initial Assess REASON FOR HOSPITALIZATION:: Cellulitis PAST MEDICAL HISTORY/PAST SURGICAL HISTORY:: Medical History . Basal cell carcinoma, face. Cardiomyopathy. Chronic kidney disease. Diabetes mellitus. Duodenitis. DVT (deep venous thrombosis). Essential hypertension. Gout. Hypercholesterolemia. Inclusion body myositis. Kidney stone. 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 NSTEMI (non-ST elevated myocardial infarction). Obesity. Pancytopenia. Pulmonary embolism. Shingles. Surgical History . Colonoscopy - MAC (~2009). EGD - MAC (~2009). LITHOTRIPSY. MUSCLE BIOPSY. POWER PORT. Repair of umbilical hernia PREVIOUS FUNCTIONAL STATUS/SOCIAL/FAMILY SUPPORTS:: Resides in [place] with , Bethanie. Independent at baseline in the community, utilizes a cane with ambulation. CURRENT FUNCTIONAL STATUS:: Bucky was sitting up in his chair, watching television when CM met with him. He was pleasant in interaction and shared no concerns. ADVANCE DIRECTIVES:: None on file. Has patient been provided with info about the portal/API?: Yes Did the patient sign up for the portal?: Yes CODE STATUS:: Full Code INSURANCE COVERAGE / FINANCIAL ISSUES:: MCR. Financial Asst 100 CURRENT HOME/COMMUNITY SERVICES/EQUIPMENT:: ramp PRIMARY CARE PHYSICIAN:: Jazmine Baer POTENTIAL DISCHARGE NEEDS:: Follow up appointments. PATIENT/FAMILY EDUCATION NEEDS:: Review discharge instructions, discuss Ask Me Three. ANTICIPATED BARRIERS TO DISCHARGE:: None identified. TRANSPORTATION:: Via private vehicle with his . PLAN:: Bucky will return home when ready per MD. Bucky continues to be treated empirically while awaiting updates on treatment course to inform discharge planning considerations; blood and MRSA cultures pending. CM continues to follow.
[2022-04-13 15:24] VITALS: BP 158/70; PULSE 73; RESP 18; TEMP 37.4; O2SAT 96
--- NOTE | 2022-04-13 16:57 | CHAPLAIN ---
Bucky was resting in bed when I visited. He told me about his cellulitis and why he's here. His was in earlier to visit. I explained my role and offered support.
[2022-04-13] MEDS: Enoxaparin 40 MG/0.4 ML SYR SC (19:07)
[2022-04-13] MEDS: VANCOMYCIN/WATER (PEG) 1.25 GM/250 ML BAG IVPB (21:18)
[2022-04-13] MEDS: Polyethylene Glycol 3350 17 GM PACKET PO (21:18)
[2022-04-13] MEDS: Insulin Glargine 300 UNITS/3 ML PEN 50 UNITS SC (21:18)
--- NOTE | 2022-04-13 22:11 | PGE_ITS ---
Date of Service Date of service: 04/13/22 Time of Service: 22:11 Assessment and Plan Assessment and plan (1) Lower extremity cellulitis: Status: Acute Assessment and plan: Appearance of scattered nonblancing petechial rash on right lower extremeitysuggests vasculitis. If cellulitis is present, the likely source is chronic toe ulcer. Cont Unsasyn and vancomycin but consider stopping. MRSA screen. (2) Diabetic ulcer of right great toe: Status: Acute Assessment and plan: Does not appear currently to show acute infection. Will watch (3) Cirrhosis of liver: Status: Acute Assessment and plan: Stable with total bilirubin of 1.0, mild AST elevation of 54 a nd normal ALT of 44. (4) Cardiomyopathy: Assessment and plan: HFrEF. No evidence of decompensation. Echo on 01/18/22: EF est. of 35-40%. Mod to severely dilated left ventricle. Mild aortic stenosis. Qualifiers: Cardiomyopathy type: dilated Qualified Code(s): I42.0 - Dilated cardiomyopathy (5) Acute on chronic renal insufficiency: Status: Acute Assessment and plan: Baselin creatinine in the 1.7-2.0 range in January/Feb/Mar of this year. Creatinine now 2.6. He received a 1L IV bolus of LR in the ED and placed on NS at 150/hr. Will hold IV fluids at this time and evaluate creatinine with morning lab draw. Concerned about risk of volume overload given HFrEF. (6) Essential hypertension: Assessment and plan: Holding Losartan d/t acute on chronic renal insuff. SBP range since admission of 109-148; monitor. (7) Gout: Assessment and plan: Cont allopurinol. Check uric acid level. There could be a compenent of gout in the right great toe. (8) Diabetes mellitus: Assessment and plan: Basal/bolus insulin. SS correction insulin dosing ACHS glucose monitoring. diabetic diet. Likely will see elevations related to steroids being used for vasculitis treatment. 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 Likely elevated and also influenced by other chronic disease states. High-dose prednisone indicated for vasculitis; 1mg/kg/day. Will give an initial dose of 80mg and if bx is positive, could escalate to 1mg/kg/day for the suggested 1 month, then taper. Bx will need to be obtained by surgery - consulted Discussed with Dr Correa Subjective Subjective Patient reports: no new complaints, still having pain, tolerating a regular diet, voiding w/o difficulty and bowel movement; denies diarrhea, nausea, vomiting or shortness of breath Interval history since last seen: Bucky continues to have pain with the lightest of touch to his right lower extremity. Exam Narrative Exam Narrative: Const:? Sitting up, eating, appears uncomfortable. Eyes:? Normal conjunctiva and sclera. MINESH Neck:? Supple.? FROM Lungs:? Normal respiratory effort.? Lungs are clear. Cor:? RRR with murmur.? Good radial pulses GI:? Soft.? NT/ND. Neuro:? A+O x 3.? Normal speech, mentation. No gross motor or sensory deficit. Ext: Bilateral lower extremity edema right greater than left.?Scattered petechial rash below the knee on the right. No confuluent erythema. Significant tenderness to any palpation in same area. He can not tolerate the lightest touch Skin:?As above. Plantar aspect of right great toe ulcer with eschar, no drainage. Psych: Affect appropriate. General appearance normal. Const General: ill appearing Nutritional Appearance: obese and edematous Orientation: alert, awake and oriented x3 Objective Last Vital Signs Temp 37.4 C 04/13/22 15:24 Pulse 73 04/13/22 15:24 Resp 18 04/13/22 15:24 BP 158/70 H 04/13/22 15:24 Pulse Ox 96 04/13/22 15:24 Laboratory Results - last 24 hr 04/12/22 04/12/22 04/13/22 20:09 22:30 06:50 WBC RBC Hgb Hct MCV MCH MCHC RDW Plt Count MPV Immature Gran % Neutrophils % Lymphocytes % Monocytes % Eosinophils % Basophils % Nucleated RBC % Absolute Neutrophils Absolute Lymphocytes Absolute Monocytes Absolute Eosinophils Absolute Basophils ESR VBG Lactate Sodium Potassium Chloride Carbon Dioxide Anion Gap BUN Creatinine Est GFR (CKD-EPI 2020) Glucose Hemoglobin A1c 6.7 H Uric Acid Calcium Total Bilirubin AST ALT Alkaline Phosphatase C-Reactive Protein 18.91 H Total Protein Albumin Procalcitonin COVID-19 Source Nasal/Nares SARS-CoV-2 (PCR) Negative Add-On Test Request 04/13/22 04/13/22 04/13/22 06:50 06:50 06:50 WBC 6.82 RBC 3.17 L Hgb 10.5 L Hct 32.2 L MCV 102 H MCH 33.1 H MCHC 32.6 RDW 15.0 H Plt Count 56 L MPV 12.5 H Immature Gran % 0.4 Neutrophils % 78.3 Lymphocytes % 5.6 Monocytes % 13.8 Eosinophils % 1.5 Basophils % 0.4 Nucleated RBC % 0.0 Absolute Neutrophils 5.34 Absolute Lymphocytes 0.38 L Absolute Monocytes 0.94 H Absolute Eosinophils 0.10 Absolute Basophils 0.03 ESR VBG Lactate 1.1 Sodium 137 Potassium 3.3 L Chloride 104 Carbon Dioxide 22.9 Anion Gap 10.1 BUN 71 H Creatinine 2.4 H Est GFR (CKD-EPI 2020) 29.39 Glucose 157 H Hemoglobin A1c Uric Acid Calcium 8.5 Total Bilirubin 0.6 AST 40 H ALT 36 Alkaline Phosphatase 131 H C-Reactive Protein Total Protein 6.7 Albumin 2.2 L Procalcitonin COVID-19 Source SARS-CoV-2 (PCR) Add-On Test Request 04/13/22 04/13/22 04/13/22 06:50 06:50 06:50 WBC RBC Hgb Hct MCV MCH MCHC RDW Plt Count MPV Immature Gran % Neutrophils % Lymphocytes % Monocytes % Eosinophils % Basophils % Nucleated RBC % Absolute Neutrophils Absolute Lymphocytes Absolute Monocytes Absolute Eosinophils Absolute Basophils ESR 72 H VBG Lactate Sodium Potassium Chloride Carbon Dioxide Anion Gap BUN Creatinine Est GFR (CKD-EPI 2020) Glucose Hemoglobin A1c Uric Acid 4.6 Calcium Total Bilirubin AST ALT Alkaline Phosphatase C-Reactive Protein Total Protein Albumin Procalcitonin COVID-19 Source SARS-CoV-2 (PCR) Add-On Test Request DONE 04/13/22 06:50 WBC RBC Hgb Hct MCV MCH MCHC RDW Plt Count MPV Immature Gran % Neutrophils % Lymphocytes % Monocytes % Eosinophils % Basophils % Nucleated RBC % Absolute Neutrophils Absolute Lymphocytes Absolute Monocytes Absolute Eosinophils Absolute Basophils ESR VBG Lactate Sodium Potassium Chloride Carbon Dioxide Anion Gap BUN Creatinine Est GFR (CKD-EPI 2020) Glucose Hemoglobin A1c Uric Acid Calcium Total Bilirubin AST ALT Alkaline Phosphatase C-Reactive Protein Total Protein Albumin Procalcitonin 23.8 COVID-19 Source SARS-CoV-2 (PCR) Add-On Test Request
[2022-04-13 23:35] VITALS: BP 152/68; PULSE 64; RESP 18; TEMP 35.6; O2SAT 96
[2022-04-14] MEDS: AMPICILLIN/SULBACTAM 3 GM in Normal Saline 100 ML IVPB ×4 (01:57→19:48)
[2022-04-14] MEDS: Normal Saline Flush 10 ML SYR IVP ×7 (01:57→23:22)
[2022-04-14 07:13] LABS: Abs Immature Grans 0.05 10^3/uL (0.0-0.06); Absolute Basophil Count 0.02 10^3/uL (0.0-0.2); Absolute Monocyte Count 0.47 10^3/uL (0.1-0.8); Absolute Neutrophil Count 5.58 10^3/uL (1.2-6.7); Basophils % 0.3; HCT 32.6 % (40.0-50.0); HGB 10.6 g/dL (13.5-17.5); Immature Grans % 0.8; Lymphocytes % 3.2; MCH 32.9 pg (27.0-33.0); MCHC 32.5 % (32.0-36.0); MCV 101 fL (80-95); MPV 12.8 fL (8.0-11.0); Monocytes % 7.4; Neutrophils % 88.3; RBC 3.22 10^6/uL (4.36-5.78); RDW 14.6 % (11.8-14.1); RDW-SD 54.8 fL; WBC 6.32 10^3/uL (4.4-10.8)
[2022-04-14 07:15] LABS: Platelet Count 48 10^3/uL (130-400)
[2022-04-14 07:30] VITALS: BP 146/71; PULSE 62; RESP 18; TEMP 36.2; O2SAT 100
[2022-04-14 07:30] LABS: Anion Gap 10.8 mmol/L (3-11); BUN 71 mg/dL (7-18); CO2 22.2 mmol/L (21.0-32.0); CREATININE 2.2 mg/dL (0.70-1.30); Chloride 103 mmol/L (98-107); Estimated GFR 32.63 (mL/min/1.73m2); Glucose 256 mg/dL (74-106); Sodium 136 mmol/L (136-145)
[2022-04-14 07:33] LABS: C-Reactive Protein 24.06 mg/dL (0.0-0.3); Magnesium 2.4 mg/dL (1.8-2.4)
[2022-04-14] MEDS: predniSONE 20 MG TAB 80 MG PO (08:04)
[2022-04-14] MEDS: Magnesium Oxide 400 MG TAB PO ×2 (08:04→19:46)
[2022-04-14] MEDS: Carvedilol 12.5 MG TAB PO ×2 (08:05→19:46)
[2022-04-14] MEDS: Aspirin E.C. 81 MG TABEC PO (08:05)
[2022-04-14] MEDS: Allopurinol 100 MG TAB 400 MG PO (08:05)
[2022-04-14] MEDS: Insulin Aspart 300 UNITS/3 ML PEN SC ×3 (08:06→17:35)
[2022-04-14] MEDS: Enoxaparin 40 MG/0.4 ML SYR SC ×2 (08:06→19:47)
[2022-04-14] MEDS: Normal Saline 500 ML 30 ML IV (08:07)
--- NOTE | 2022-04-14 13:15 | SKI_PTH ---
PATIENT: Bucky Acevedo LOC: U#:[id number] AGE/SX: 62/M ROOM: 208 RE04/12/[address]: Braeden Lagos MD : 1960 BED: A DIS: 04/19/2022 SPEC #: [id number] RECD: 04/16/22 11:11 STATUS: CLAUDIA REQ #: [id number] JAGDISH: 04/14/22 13:[address]: Braeden Lagos DEPT: Surgical Specimen RECD BY: Makayla Jones ENTERED: 04/16/22 11:13 SP TYPE: SKI OTHR DR: Nile Naik, LUDA Baer,Jazmine Fish, LUDA Staton,MD Jerry Nielson, MD Bethanie Gardner, HIS Jayden Barcenas, Ludmila Sauceda MD Leung,Ayah Lai, MD Saldivar,Adarsh Contreras, MD Gonzalez,Ada Harrison, DO [facility] Donato Melendrez Tissues: 1 - SKIN BIOPSY(SHAVE/PUNCH) Procedures: SKIN LEVEL 4 SPECIAL STAIN 1 Comments: [id number] (ADDENDED REPORT)
--- NOTE | 2022-04-14 13:22 | SCONE_ITS ---
Date of service: 04/14/22 Time of Service: 13:23 Assessment and Plan Assessment and plan (1) Petechial rash: Status: Acute Assessment and plan: 62 year old gentleman with new onset petechial rash suspicious for small vessel vasculitis. Discussed punch biopsy with patient at the bedside. Discussed t issue handling with Dr. Robles. Tissue can go in formalin. Risks, benefits and complications were reviewed. The patient agreed to proceed. See procedure note History of Present Illness Narrative: Mr. Acevedo is a pleasant 62 year old who was admitted on 04/13 with celulitis of the RLE. It is painful and his lower extremity is edematous from lknee down to his foot. He has a history of gout. He started with pain last saturday and thought maybe his gout was acting up so he took his gout medication. When the pain worsened he went to the ER. He was discharged to home. He returned to the ER the next day with worsening pain, edema and a new petichial rash. He was admitted and given both an antibiotic and prednisone. I was asked to see the patient for a biopsy for diagnoses. Consults Consult date: 04/14/22 Requesting physician: Tatiana Levy Review of Systems All systems reviewed & are unremarkable except as noted in HPI and below PFSH All Active Problems (Updated 04/14/22 @ 13:29 by Fela Donaldson MD) Petechial rash (Acute) Vasculitis (Acute) Acute on chronic renal insufficiency (Acute) Lower extremity cellulitis (Acute) Renal insufficiency (Chronic) Diabetic ulcer of right great toe (Acute) Impacted cerumen of both ears (Acute) HTN (hypertension) (Chronic) Cirrhosis of liver (Acute) Subclavian vein thrombosis (Acute) Myopathy (Acute) Barretts esophagus (Acute) Hearing deficit (Acute) Epistaxis (Acute) Chronic anemia (Acute) Edema (Acute) Heart murmur, systolic (Acute) CALDERON (dyspnea on exertion) (Acute) Diastolic dysfunction (Acute) Excess ear wax (Acute) Weakness of both legs (Acute) Nocturnal cough (Acute) Medication monitoring encounter (Acute) Skin cancer, basal cell (Acute) face Elevated troponin (Acute) Medical History Basal cell carcinoma, face Cardiomyopathy Chronic kidney disease Diabetes mellitus Duodenitis DVT (deep venous thrombosis) Essential hypertension Gout Hypercholesterolemia 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 Sister Diabetes PATERNAL UNCLE Personal history of malignant neoplasm STOMACH Social History Smoking/Tobacco Use Status: Never Smoking risk assessment performed?: Yes Alcohol Intake: never Drug use: Never Do you feel safe at home: Yes Do you feel safe in your relationship?: Yes Exam Const General: comfortable and no acute distress Nutritional Appearance: obese Orientation: alert and oriented x3 HENMT Head: normocephalic and atraumatic Resp Effort & Inspection: normal respiratory effort Extrem Other: RLE- pitting edema, tenderness to palpation, Petechial rash Results Last Vital Signs Temp 97.2 F L 04/14/22 07:30 Pulse 62 04/14/22 07:30 Resp 18 04/14/22 07:30 BP 146/71 H 04/14/22 07:30 Pulse Ox 100 04/14/22 07:30 Labs Result diagrams: 04/14/22 06:10 04/14/22 06:10 Labs: Laboratory Results - last 24 hr 04/14/22 04/14/22 04/14/22 06:10 06:10 06:10 WBC 6.32 RBC 3.22 L Hgb 10.6 L Hct 32.6 L MCV 101 H MCH 32.9 MCHC 32.5 RDW 14.6 H Plt Count 48 L MPV 12.8 H Immature Gran % 0.8 Neutrophils % 88.3 Lymphocytes % 3.2 Monocytes % 7.4 Eosinophils % 0.0 Basophils % 0.3 Nucleated RBC % 0.0 Absolute Neutrophils 5.58 Absolute Lymphocytes 0.20 L Absolute Monocytes 0.47 Absolute Eosinophils 0.00 Absolute Basophils 0.02 Sodium 136 Potassium 4.0 Chloride 103 Carbon Dioxide 22.2 Anion Gap 10.8 BUN 71 H Creatinine 2.2 H Est GFR (CKD-EPI 2020) 32.63 Glucose 256 H Calcium 9.0 Magnesium 2.4 C-Reactive Protein 24.06 H Procedures Other Procedure Description/Findings: Pre-op Dx: petechial rash, ? vasculitis Post-op Dx: same Procedure: 4 mm punch biopsy x2 Surgeon: Heron Donaldson MD Anesthesia: 1% lidocaine- 3 cc Blood loss: minimal Specimen: skin and subcutaneous tissue x2 Complications: no immediate complications Procedure: after informed consent was obtained the patient was asked to lay on his bed. An area on his RLE was prepped with chlorhexedine swabs. The dermis and subcutaneous tissue was injected with lidocaine. Once the area was numb. 2 4 mm punch biopsies were done. The tissue was placed into formalin. The skin was cleaned and a dry dressing was applied. The patient toelrated the procedure well.
[2022-04-14] MEDS: HYDROmorphone 2 MG/ML SYR 0.5 MG IVP (13:23)
[2022-04-14 14:39] VITALS: BP 146/75; PULSE 59; RESP 18; TEMP 35.5; O2SAT 99
--- NOTE | 2022-04-14 17:19 | PGE_ITS ---
Date of Service Date of service: 04/14/22 Time of Service: 13:00 Assessment and Plan Assessment and plan (1) Lower extremity cellulitis: Status: Acute Assessment and plan: Appearance of scattered nonblancing petechial rash on right lower extremeity suggests vasculitis; consult surgeon for skin bx If cellulitis is present, the likely source is chronic toe ulcer. Cont Unsasyn and discontinue vancomycin - MRSA screen negative (2) Diabetic ulcer of right great toe: Status: Acute Assessment and plan: Does not appear currently to show acute infection. Will watch (3) Cirrhosis of liver: Status: Acute Assessment and plan: Stable with total bilirubin of 0.6, mild AST elevation of 40 and normal ALT of 36. (4) Cardiomyopathy: Assessment and plan: HFrEF. No evidence of decompensation. Echo on 01/18/22: EF est. of 35-40%. Mod to severely dilated left ventricle. Mild aortic stenosis. Qualifiers: Cardiomyopathy type: dilated Qualified Code(s): I42.0 - Dilated cardiomyopathy (5) Acute on chronic renal insufficiency: Status: Acute Assessment and plan: Baseline creatinine in the 1.7-2.0 range in January/Feb/Mar of this year. Creatinine now 2.2. IVF discontinued - concerned about risk of volume overload given HFrEF. (6) Essential hypertension: Assessment and plan: Holding Losartan d/t acute on chronic renal insuff. SBP range since admission of 140-150; monitor. (7) Gout: Assessment and plan: Cont allopurinol. uric acid 4.4 - w/i normal range There could be a compenent of gout in the right great toe. (8) Diabetes mellitus: Assessment and plan: Basal/bolus insulin. SS correction insulin dosing ACHS glucose monitoring. diabetic diet. Likely will see elevations related to steroids being used for vasculitis treatment. 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 Procalcitonin 04/12 23.8 High-dose prednisone indicated for vasculitis; 1mg/kg/day. Will give an initial dose of 80mg and if bx is positive, could escalate to 1mg/kg/day for the suggested 1 month, then taper. Bx obtained today by Dr Donaldson RLE US negative for DVT Labs ordered per recommendation of UTD for small vessel vasculitis: Acute hepatitis profile ANCA vasculitis panel Antinuclear antibody Anti-DNA C3 complement C4 complement Cryo globulin HIV Rheumatoid factor Contreras Antibody Lupus anticoagulant cascade All send outs Discussed with Dr Correa. Subjective Subjective Patient reports: no new complaints, tolerating a regular diet, voiding w/o difficulty and afebrile; denies diarrhea, nausea, vomiting or shortness of breath Interval history since last seen: Chris is sitting in a chair states he has less pain although still significant, but controlled with current medication regime. . Exam Narrative Exam Narrative: Const:? Sitting up, eating, appears uncomfortable. Eyes:? Normal conjunctiva and sclera. MINESH Neck:? Supple.? FROM Lungs:? Normal respiratory effort.? Lungs are clear. Cor:? RRR with murmur.? Good radial pulses GI:? Soft.? NT/ND. Neuro:? A+O x 3.? Normal speech, mentation. No gross motor or sensory deficit. Ext: Bilateral lower extremity edema right greater than left.?Scattered petechial rash below the knee on the right. No confuluent erythema. Significant tenderness to any palpation in same area. He can not tolerate the lightest touch Skin:?As above. Plantar aspect of right great toe ulcer with eschar, no drainage. Psych: Affect appropriate. General appearance normal. Const General: ill appearing Nutritional Appearance: obese and edematous Orientation: alert, awake and oriented x3 Objective Last Vital Signs Temp 35.5 C L 04/14/22 14:39 Pulse 59 L 04/14/22 14:39 Resp 18 04/14/22 14:39 BP 146/75 H 04/14/22 14:39 Pulse Ox 99 04/14/22 14:39 Laboratory Results - last 24 hr 04/14/22 04/14/22 04/14/22 06:10 06:10 06:10 WBC 6.32 RBC 3.22 L Hgb 10.6 L Hct 32.6 L MCV 101 H MCH 32.9 MCHC 32.5 RDW 14.6 H Plt Count 48 L MPV 12.8 H Immature Gran % 0.8 Neutrophils % 88.3 Lymphocytes % 3.2 Monocytes % 7.4 Eosinophils % 0.0 Basophils % 0.3 Nucleated RBC % 0.0 Absolute Neutrophils 5.58 Absolute Lymphocytes 0.20 L Absolute Monocytes 0.47 Absolute Eosinophils 0.00 Absolute Basophils 0.02 Sodium 136 Potassium 4.0 Chloride 103 Carbon Dioxide 22.2 Anion Gap 10.8 BUN 71 H Creatinine 2.2 H Est GFR (CKD-EPI 2020) 32.63 Glucose 256 H Calcium 9.0 Magnesium 2.4 C-Reactive Protein 24.06 H
[2022-04-14] MEDS: VANCOMYCIN/WATER (PEG) 1.25 GM/250 ML BAG IVPB (21:24)
[2022-04-14] MEDS: Insulin Glargine 300 UNITS/3 ML PEN 50 UNITS SC (21:40)
[2022-04-14 23:10] VITALS: BP 136/75; PULSE 78; RESP 18; TEMP 36; O2SAT 96
[2022-04-15] MEDS: AMPICILLIN/SULBACTAM 3 GM in Normal Saline 100 ML IVPB ×4 (02:07→20:13)
[2022-04-15] MEDS: Normal Saline Flush 10 ML SYR IVP ×5 (02:07→20:19)
[2022-04-15 06:07] LABS: Absolute Basophil Count 0.01 10^3/uL (0.0-0.2); Absolute Lymphocyte Count 0.25 10^3/uL (1.2-3.4); Absolute Monocyte Count 0.48 10^3/uL (0.1-0.8); Absolute Neutrophil Count 6.84 10^3/uL (1.2-6.7); Basophils % 0.1; HCT 30.7 % (40.0-50.0); HGB 10.2 g/dL (13.5-17.5); Immature Grans % 1.3; Lymphocytes % 3.3; MCH 33.2 pg (27.0-33.0); MCHC 33.2 % (32.0-36.0); MCV 100 fL (80-95); MPV 12.9 fL (8.0-11.0); Monocytes % 6.3; RBC 3.07 10^6/uL (4.36-5.78); RDW 14.6 % (11.8-14.1); RDW-SD 53.8 fL; WBC 7.68 10^3/uL (4.4-10.8)
[2022-04-15 06:22] LABS: ESR 86 mm/hr (0-20)
[2022-04-15 06:36] LABS: Platelet Count 54 10^3/uL (130-400)
[2022-04-15 06:41] LABS: Anion Gap 10.3 mmol/L (3-11); BUN 78 mg/dL (7-18); C-Reactive Protein 11.48 mg/dL (0.0-0.3); CO2 22.7 mmol/L (21.0-32.0); Calcium 8.8 mg/dL (8.5-10.1); Chloride 103 mmol/L (98-107); Estimated GFR 36.58 (mL/min/1.73m2); Glucose 239 mg/dL (74-106); Magnesium 2.4 mg/dL (1.8-2.4); Potassium 4.2 mmol/L (3.5-5.1); Sodium 136 mmol/L (136-145)
[2022-04-15 07:15] VITALS: BP 147/75; PULSE 62; RESP 17; TEMP 35.6; O2SAT 99
[2022-04-15] MEDS: predniSONE 20 MG TAB 80 MG PO (08:20)
[2022-04-15] MEDS: Carvedilol 12.5 MG TAB PO ×2 (08:20→20:13)
[2022-04-15] MEDS: Allopurinol 100 MG TAB 400 MG PO (08:20)
[2022-04-15] MEDS: Magnesium Oxide 400 MG TAB PO ×2 (08:20→20:13)
[2022-04-15] MEDS: Aspirin E.C. 81 MG TABEC PO (08:21)
[2022-04-15] MEDS: Insulin Aspart 300 UNITS/3 ML PEN SC ×4 (08:21→22:07)
[2022-04-15] MEDS: Insulin Glargine 300 UNITS/3 ML PEN 10 UNITS SC (14:51)
[2022-04-15 14:59] VITALS: BP 149/78; PULSE 61; RESP 18; TEMP 35.9; O2SAT 99
[2022-04-15] MEDS: HYDROmorphone 2 MG/ML SYR 0.5 MG IVP (15:00)
--- NOTE | 2022-04-15 18:17 | PGE_ITS ---
Date of Service Date of service: 04/15/22 Time of Service: 11:00 Assessment and Plan Assessment and plan (1) Lower extremity cellulitis: Status: Acute Assessment and plan: Appearance of scattered nonblancing petechial rash on right lower extremeity suggests vasculitis; skin bx done If cellulitis is present, the likely source is chronic toe ulcer. Cont Unsasyn and discontinue vancomycin - MRSA screen negative (2) Thrombocytopenia: Status: Chronic Assessment and plan: Platelets 54, continues to drop; xarelto held. Minor bleeding from biopsy areas on his leg; He has no critical or severe bleeding. Hgb has not fallen > 2gm - it has gone from 12.1 to 10.2 in 3 days, borderline. He does receive IVIG as outpatient - will continue to watch and ask infusion when his next tx is due. He is on predinisone. (3) Diabetic ulcer of right great toe: Status: Acute Assessment and plan: Does not appear currently to show acute infection. WBC 7.68, afebrile Will watch (4) Cirrhosis of liver: Status: Chronic Assessment and plan: Stable (5) Cardiomyopathy: Assessment and plan: HFrEF. No evidence of decompensation. Echo on 01/18/22: EF est. of 35-40%. Mod to severely dilated left ventricle. Mild aortic stenosis. Qualifiers: Cardiomyopathy type: dilated Qualified Code(s): I42.0 - Dilated cardiomyopathy (6) Acute on chronic renal insufficiency: Status: Acute Assessment and plan: Baseline creatinine in the 1.7-2.0 range in January/Feb/Mar of this year. Creatinine now 2.0. IVF continue to be held, discontinued - concerned about risk of volume overload given HFrEF. (7) Essential hypertension: Assessment and plan: Holding Losartan d/t acute on chronic renal insuff. SBP range stable at-S150s; monitor. (8) Gout: Assessment and plan: Cont allopurinol, however this is not gout. uric acid 4.4 - w/i normal range There could be a component of gout in the right great toe. (9) Diabetes mellitus: Assessment and plan: Basal/bolus insulin. Increased basal to include 20 units lantus in the am for glucose ~ 300s with steroids. SS correction insulin dosing ACHS glucose monitoring. diabetic diet. Likely will see elevations related to steroids being used for vasculitis treatment. 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 Procalcitonin 04/12 23.8 High-dose prednisone indicated for vasculitis; 1mg/kg/day. Will give an initial dose of 80mg and if bx is positive, could escalate to 1mg/kg/day for the suggested 1 month, then taper. Bx obtained today by Dr Donaldson RLMelanie US negative for DVT Labs ordered per recommendation of UTD for small vessel vasculitis: Acute hepatitis profile ANCA vasculitis panel Antinuclear antibody Anti-DNA C3 complement C4 complement Cryo globulin HIV Rheumatoid factor Contreras Antibody Lupus anticoagulant cascade\ All pending - I suspect he will be discharged prior to most results being received. All send outs Discussed with Dr. Lagos. Subjective Subjective Patient reports: no new complaints, pain is less, tolerating a regular diet, voiding w/o difficulty, bowel movement and afebrile; denies diarrhea, nausea or vomiting Interval history since last seen: Bucky is resting comfortably in bed, states his leg feels better when he has it elevated. He reports he Exam Narrative Exam Narrative: Const:? Sitting up, eating, appears uncomfortable. Eyes:? Normal conjunctiva and sclera. MINESH Neck:? Supple.? FROM Lungs:? Normal respiratory effort.? Lungs are clear. Cor:? RRR with murmur.? Good radial pulses GI:? Soft.? NT/ND. Neuro:? A+O x 3.? Normal speech, mentation. No gross motor or sensory deficit. Ext: Bilateral lower extremity edema right greater than left.?Scattered petechial rash below the knee on the right. No confuluent erythema. Significant tenderness to any palpation in same area. He can not tolerate the lightest touch Skin:?As above. Plantar aspect of right great toe ulcer with eschar, no drainage. Psych: Affect appropriate. General appearance normal. Const General: ill appearing Nutritional Appearance: obese and edematous Orientation: alert, awake and oriented x3 Objective Last Vital Signs Temp 35.9 C L 04/15/22 14:59 Pulse 61 04/15/22 14:59 Resp 18 04/15/22 14:59 BP 149/78 H 04/15/22 14:59 Pulse Ox 99 04/15/22 14:59 Laboratory Results - last 24 hr 04/15/22 04/15/22 04/15/22 05:48 05:48 05:48 WBC 7.68 RBC 3.07 L Hgb 10.2 L Hct 30.7 L MCV 100 H MCH 33.2 H MCHC 33.2 RDW 14.6 H Plt Count 54 L MPV 12.9 H Immature Gran % 1.3 Neutrophils % 89.0 Lymphocytes % 3.3 Monocytes % 6.3 Eosinophils % 0.0 Basophils % 0.1 Nucleated RBC % 0.0 Absolute Neutrophils 6.84 H Absolute Lymphocytes 0.25 L Absolute Monocytes 0.48 Absolute Eosinophils 0.00 Absolute Basophils 0.01 ESR 86 H Sodium 136 Potassium 4.2 Chloride 103 Carbon Dioxide 22.7 Anion Gap 10.3 BUN 78 H Creatinine 2.0 H Est GFR (CKD-EPI 2020) 36.58 Glucose 239 H Calcium 8.8 Magnesium 2.4 C-Reactive Protein 11.48 H
[2022-04-15 18:40] LABS: Rheumatoid Factor 11.4 IU/mL (<12.0)
[2022-04-15] MEDS: Normal Saline 500 ML 30 ML IV (20:14)
[2022-04-15] MEDS: Insulin Glargine 300 UNITS/3 ML PEN 50 UNITS SC (22:08)
[2022-04-15 22:30] VITALS: BP 144/78; PULSE 57; RESP 18; TEMP 36.7; O2SAT 98
[2022-04-16] VITALS (9 sets, daily range): BP systolic 135–158; BP diastolic 70–84; PULSE 58–68; RESP 18–19; TEMP 35.7–36.3; O2SAT 97–99
[2022-04-16] MEDS: AMPICILLIN/SULBACTAM 3 GM in Normal Saline 100 ML IVPB ×4 (02:49→20:53)
[2022-04-16] MEDS: Normal Saline Flush 10 ML SYR IVP ×5 (05:45→20:54)
[2022-04-16 06:47] LABS: Abs Immature Grans 0.36 10^3/uL (0.0-0.06); Absolute Basophil Count 0.04 10^3/uL (0.0-0.2); Absolute Eosinophil Count 0.01 10^3/uL (0.0-0.7); Absolute Monocyte Count 0.56 10^3/uL (0.1-0.8); Absolute Neutrophil Count 7.46 10^3/uL (1.2-6.7); Basophils % 0.5; Eosinophils % 0.1; HCT 31.5 % (40.0-50.0); HGB 10.4 g/dL (13.5-17.5); Immature Grans % 4.1; Lymphocytes % 3.4; MCH 32.9 pg (27.0-33.0); MCV 100 fL (80-95); MPV 11.9 fL (8.0-11.0); Monocytes % 6.4; Neutrophils % 85.5; Nucleated RBC 0.5 % (0.0-0.3); RBC 3.16 10^6/uL (4.36-5.78); RDW 14.6 % (11.8-14.1); RDW-SD 53.7 fL; WBC 8.73 10^3/uL (4.4-10.8)
[2022-04-16 07:05] LABS: ALT 57 U/L (16-63); AST 61 U/L (15-37); Albumin 1.9 g/dL (3.4-5.0); Alkaline Phosphatase 137 U/L (46-116); Anion Gap 7.4 mmol/L (3-11); BUN 76 mg/dL (7-18); Bilirubin, Total 0.5 mg/dL (0.2-1.0); CO2 22.6 mmol/L (21.0-32.0); Calcium 8.8 mg/dL (8.5-10.1); Chloride 104 mmol/L (98-107); Estimated GFR 36.58 (mL/min/1.73m2); Glucose 135 mg/dL (74-106); Magnesium 2.3 mg/dL (1.8-2.4); Potassium 4.5 mmol/L (3.5-5.1); Sodium 134 mmol/L (136-145); Total Protein 6.3 g/dL (6.4-8.2)
[2022-04-16 07:32] LABS: Platelet Count 60 10^3/uL (130-400)
[2022-04-16] MEDS: Aspirin E.C. 81 MG TABEC PO (08:12)
[2022-04-16] MEDS: Magnesium Oxide 400 MG TAB PO ×2 (08:12→20:54)
[2022-04-16] MEDS: predniSONE 20 MG TAB 80 MG PO (08:12)
[2022-04-16] MEDS: Allopurinol 100 MG TAB 400 MG PO (08:12)
[2022-04-16] MEDS: Carvedilol 12.5 MG TAB PO ×2 (08:12→20:54)
[2022-04-16] MEDS: Insulin Glargine 300 UNITS/3 ML PEN 20 UNITS SC (08:13)
[2022-04-16] MEDS: Insulin Aspart 300 UNITS/3 ML PEN SC ×4 (08:14→21:04)
[2022-04-16 09:10] LABS: HIV-1/2 Ag & Ab Screen Negative (Negative)
--- NOTE | 2022-04-16 09:48 | PT.INIE ---
Date of service: 04/16/22 Time of Service: 09:48 PT Notes Visit Reasons: Cellulitis Physical Therapy Inpatient Initial Evaluation Date: 04/16/2022 Referring Doctor: Tatiana Levy NP PT Orders: PT CONSULT: D/C Non-PT Dependent Precautions: Fall. Standard. Activity as tolerated. Patient Profile/Admitting Diagnosis: Braeden is a 62-year-old female who presented to the ED on 04/12/2020 for worsening neck pain, leg pain and rash. Patient is diagnostically, No synovitis on the right worse, diabetic cholesterol prior to returning, cirrhosis of liver, cardiomyopathy with HFrEF of 30%-40%, chronic renal insufficiency, essential hypertension, DM, vasculitis. PMHX: All Active Problems?(Updated 04/13/22 @ 05:16 by Braeden Lagos MD) Vasculitis (Acute) Acute on chronic renal insufficiency (Acute) Lower extremity cellulitis (Acute) Renal insufficiency (Chronic) Diabetic ulcer of right great toe (Acute) Impacted cerumen of both ears (Acute) HTN (hypertension) (Chronic) Cirrhosis of liver (Acute) Subclavian vein thrombosis (Acute) Myopathy (Acute) Barretts esophagus (Acute) Hearing deficit (Acute) Epistaxis (Acute) Chronic anemia (Acute) Edema (Acute) Heart murmur, systolic (Acute) CALDERON (dyspnea on exertion) (Acute) Diastolic dysfunction (Acute) Excess ear wax (Acute) Weakness of both legs (Acute) Nocturnal cough (Acute) Medication monitoring encounter (Acute) Skin cancer, basal cell (Acute) face Elevated troponin (Acute) Medical History? 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 Colonoscopy - MAC (~2009) EGD - MAC (~2009) LITHOTRIPSY MUSCLE BIOPSY POWER PORT Repair of umbilical hernia Social History/Home Situation: Lives with in a multilevel home with several steps to enter with rails. He has another set of stairs to their bedroom with rails on B sides. Receives daily Ig infusion at this hospital. Equipment Owned/DME: Powered wheelchair, FWW, SPC Subjective: Reported marked decrease in Patient states that he does not use an AD indside the house. Uses the FWW infrequently outdoors and brings the motorized wheelchair with him during community affairs that entail long distance walking as she had had a drug-induced myopathy that limits his activity tolerance for community ambulation at baseline. Objective: General Observation: Seated on chair. R leg erythematous and minimally swollen. Mental Status: Alert and oriented as to person, place, time, and purpose. Able to pay attention, focus, and respond appropriately. Pain: 2/10 in R leg Vital Signs: WNL as closely monitored by nursing staff ROM: Right Upper Extremity: Shoulder Flexion WFL. Shoulder abduction WFL. Elbow flexion WFL. Wrist flexion WFL. Functional opening and closing of hand WFL. Left Upper Extremity: Shoulder Flexion WFL. Shoulder abduction WFL. Elbow flexion WFL. Wrist flexion WFL. Functional opening and closing of hand WFL. Right Lower Extremity: Hip flexion WFL. Hip abduction WFL. Knee flexion WFL. Ankle dorsiflexion WFL. Ankle plantarflexion WFL. Left Lower Extremity: Hip flexion WFL. Hip abduction WFL. Knee flexion WFL. Ankle dorsiflexion WFL. Ankle plantarflexion WFL. Strength: Right Upper Extremity: Shoulder flexors 5/5. Shoulder abductors 5/5. Elbow flexors 5/5. Elbow extensors 5/5. Lay Ups Assembler strong. Left Upper Extremity: Shoulder flexors 5/5. Shoulder abductors 5/5. Elbow flexors 5/5. Elbow extensors 5/5. Lay Ups Assembler strong. Right Lower Extremity: Hip flexors 5/5. Hip abductors 5/5. Knee flexors 4/5. Knee extensors 4/5. Ankle dorsiflexors 4/5. Ankle plantarflexors 4/5. Left Lower Extremity: Hip flexors 4/5. Hip abductors 4/5. Knee flexors 4/5. Knee extensors 4/5. Ankle dorsiflexors 4/5. Ankle plantarflexors 4/5. Bed Mobility/Transfers: Rolling independent Supine to sit independent Sit to supine independent Sit to stand independent Stand to sit independent Bed to reclining chair independent Reclining chair to bed independent Gait: Instructed patient with level surface ambulation of 200 feet requiring FWW indepedently. Sarika decreased. Step height on R decreased. Step length on R decreased. Pain with walking now only 2/10. Balance: Static Sitting: Normal Dynamic Sitting: Normal Static Standing: Fair Dynamic Standing: Fair Special Tests: Mobility Limitations Standardized Measure [facility] AM-PAC 6 clicks Basic Mobility Inpatient Short Form: Raw Score: 23 CMS Score: 11% deficit Informed Consent/Education: Patient was instructed in purpose of PT consult and plan of care. Agreeable to proceed with established PT POC to achieve personal goals. Assessment: Patient at baseline did not need any assistive device indoors. He only uses motorized wheelchair in the community for activities needing long distance walking. He will be skilled once a day for stairs training and mobility upgrade to independent walking indoors about 50 feet without AD. Patient presents with clinical signs and symptoms consistent with current/admitting diagnoses that have resulted to mobility limitations, gait instability, and overall ADL decline as demonstrated by the following impairment level findings: 1. Decreased strength to R LE major muscle groups 2. Impaired tanding balance 3. Impaired activity tolerance 4. Shortness of breath 5. Swelling Impairments are contributing to the following functional limitations: 1. Difficulty with ambulation without assistive device 2. Increased completion time for mobility ADL performance 3. Increased risk for falls 4. Difficulty with managing steps alone safely Patient is assessed as a [id number] moderate complexity based on the following: History: 62-year-old male with past medical history as indicated above Examination: Demonstrable impairment in strength, balance, and mobility level with underlying impairments and functional limitations as exhibited above as well as deficit score of 11% utilizing the [facility] Mobility Inpatient Short Form Presentation: Evolving Decision Makin moderate complexity Goals: Goals X1 week 1. Independent gait on level surface with use of no AD for at least 50 feet without report of pain nor dyspnea with improved step length and height 2. Independent stair negotiation while holding onto B rails for at least 15 steps without report of pain nor dyspnea 3. Independent with SPC for ambulation of up to 300 feet Plan of Care/Treatment Plan: 1/day, 7 days/week x 1 week. Plan of care has been reviewed with the UROGYNECOLOGY PHYSICIAN providing the service under Physical Therapy direction. Initiate Physical Therapy intervention for pain management as needed, stairs, balance training, and use of assistive device. DISCHARGE RECOMMENDATIONS: [X] Home with no services. HOme when medically cleared by hospitalist. [] Home with services [specify] [] Home with outpatient PT [] [] SNF for continued rehabilitation [] [] Plate Corrector Care [] [] SNF versus LTC based on ability to participate and progress [] TREATMENT CODE/TIME: 36335 x 19 minutes beginning at 9:48 AM. Thank you for the opportunity to participate in the care of this patient. Bri Ryder PT, DPT, CLT [facility] [place], [place]
[2022-04-16 11:04] LABS: C3 Complement 136 mg/dL (81-157); C4 Complement 36 mg/dL (13-39)
--- NOTE | 2022-04-16 11:25 | PDOC.CMPRO ---
- If Service Date Differs Date of service: 04/16/22 Time of Service: 11:25
[2022-04-16] MEDS: IMMUNE GLOBULIN 10 GM/100 ML BTL IVPB (11:35)
[2022-04-16 12:22] LABS: Hepatitis A Antibody IgM Negative (Negative); Hepatitis B Core Antibody Positive (Negative); Hepatitis B surface Ag Negative (Negative); Hepatitis C Ab w Rflx HCV PCR Negative (Negative)
[2022-04-16] MEDS: IMMUNE GLOBULIN 40 GM/400 ML BTL IVPB ×3 (12:22→15:05)
--- NOTE | 2022-04-16 12:25 | PDOC.CMPRO ---
- If Service Date Differs Date of service: 04/16/22 Time of Service: 12:25 Care Management Progress Note S/O: Bucky remains inpatient, medically improving per provider. No change to overall plan; no additional services anticipated at this time. Bucky remains pleasant in interaction and shares no concerns at this time except wanting to know what is causing his skin rash and awaiting skin biopsy results. CM validated stress of waiting and unknown. CM continues to follow. A: 62 year old male admitted to [facility] 04/12/22 for Cellulitis P: Bucky will return home when ready per MD. He will follow up with his PCP and plan of care as prescribed and transport via private vehicle with his Bethanie.
--- NOTE | 2022-04-16 13:21 | W.PM.PROGNOT ---
Date of Service Date of service: 04/16/22 Time of Service: Assessment and Plan Assessment and plan (1) Lower extremity cellulitis: Status: Acute Assessment and plan: Appearance of scattered nonblancing petechial rash on right lower extremeity suggests vasculitis; skin bx done - slightly better today, definitely not worse Cont Unsasyn MRSA screen negative BC neg x 72h (2) Thrombocytopenia: Status: Chronic Assessment and plan: Platelets 60, continues to drop; xarelto held. Minor bleeding from biopsy areas on his leg has stopped, dsd on - He has no critical or severe bleeding. Hgb has not fallen > 2gm - it has gone from 12.1 to 10.2 in 3 days, today it is 10.4 He does receive IVIG as outpatient - received one dose today and will have second dose tomorrow - he usually gets 2 doses a month- He continues to be on predinisone. (3) Diabetic ulcer of right great toe: Status: Acute Assessment and plan: Does not appear currently to show acute infection. WBC 8.73, afebrile Will watch (4) Cirrhosis of liver: Status: Chronic Assessment and plan: Stable (5) Cardiomyopathy: Assessment and plan: HFrEF. No evidence of decompensation. Echo on 01/18/22: EF est. of 35-40%. Mod to severely dilated left ventricle. Mild aortic stenosis. Qualifiers: Cardiomyopathy type: dilated Qualified Code(s): I42.0 - Dilated cardiomyopathy (6) Acute on chronic renal insufficiency: Status: Acute Assessment and plan: Baseline creatinine in the 1.7-2.0 range in January/Feb/Mar of this year. Creatinine now 2.0. BUN 76 IVF discontinued - concerned about risk of volume overload given HFrEF. (7) Essential hypertension: Assessment and plan: Holding Losartan d/t acute on chronic renal insuff. SBP range stable at-S150s; monitor. (8) Gout: Assessment and plan: Cont allopurinol, however this is not gout. uric acid 4.4 - w/i normal range There could be a component of gout in the right great toe. (9) Diabetes mellitus: Assessment and plan: Basal/bolus insulin. Increased basal to include 25 units lantus in the am for glucose ~ 170-270 with steroids. SS correction insulin dosing ACHS glucose monitoring. diabetic diet. Likely will see elevations related to steroids being used for vasculitis treatment. 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 Procalcitonin 04/12 23.8 High-dose prednisone indicated for vasculitis; 1mg/kg/day. Will give an initial dose of 80mg and if bx is positive, could escalate to 1mg/kg/day for the suggested 1 month, then taper. Bx obtained today by Dr Donaldson RLE US negative for DVT Labs ordered per recommendation of UTD for small vessel vasculitis: Acute hepatitis profile ANCA vasculitis panel Antinuclear antibody Anti-DNA C3 complement C4 complement Cryo globulin HIV Rheumatoid factor Contreras Antibody Lupus anticoagulant cascade\ All pending - I suspect he will be discharged prior to most results being received. All send outs Discussed with Dr. Lagos. Subjective Subjective Patient reports: no new complaints, pain is less, tolerating a regular diet, voiding w/o difficulty, bowel movement and afebrile; denies flatus, diarrhea, nausea or vomiting Interval history since last seen: Bucky states he was sitting too long in the chair with his leg dependent and it is somewhat more swollen. He is back in bed and watching TV. A family member is in the room with him visiting. Exam Narrative Exam Narrative: Const:? Sitting upright in bed, awake, alert, no new complaints Eyes:? Normal conjunctiva and sclera. MINESH Neck:? Supple.? FROM Lungs:? Normal respiratory effort.? Lungs are clear. Cor:? RRR with murmur.? Good radial pulses GI:? Soft.? NT/ND. Neuro:? A+O x 3.? Normal speech, mentation. No gross motor or sensory deficit. Ext: Bilateral lower extremity edema right greater than left.?Scattered petechial rash below the knee on the right. No confuluent erythema. Significant tenderness to any palpation in same area. He can not tolerate the lightest touch - it has improved since yesterday and rash is lightening from the knee down Skin:?As above. Plantar aspect of right great toe ulcer with eschar, no drainage, no change since admission Psych: Affect appropriate. General appearance normal. Const General: ill appearing Nutritional Appearance: obese and edematous Orientation: alert, awake and oriented x3 Objective Last Vital Signs Temp 36.2 C L 04/16/22 12:56 Pulse 62 04/16/22 12:56 Resp 18 04/16/22 12:56 BP 145/82 H 04/16/22 12:56 Pulse Ox 97 04/16/22 12:56 Laboratory Results - last 24 hr 04/14/22 04/14/22 04/15/22 21:30 21:30 21:00 WBC RBC Hgb Hct MCV MCH MCHC RDW Plt Count MPV Immature Gran % Neutrophils % Lymphocytes % Monocytes % Eosinophils % Basophils % Nucleated RBC % Absolute Neutrophils Absolute Lymphocytes Absolute Monocytes Absolute Eosinophils Absolute Basophils Sodium Potassium Chloride Carbon Dioxide Anion Gap BUN Creatinine Est GFR (CKD-EPI 2020) Glucose Calcium Magnesium Total Bilirubin AST ALT Alkaline Phosphatase Total Protein Albumin Vancomycin Trough Cancelled Rheumatoid Factor 11.4 HIV 1&2 Ag/Ab, 4th Gen Negative 04/16/22 04/16/22 05:49 05:49 WBC 8.73 RBC 3.16 L Hgb 10.4 L Hct 31.5 L MCV 100 H MCH 32.9 MCHC 33.0 RDW 14.6 H Plt Count 60 L MPV 11.9 H Immature Gran % 4.1 Neutrophils % 85.5 Lymphocytes % 3.4 Monocytes % 6.4 Eosinophils % 0.1 Basophils % 0.5 Nucleated RBC % 0.5 H Absolute Neutrophils 7.46 H Absolute Lymphocytes 0.30 L Absolute Monocytes 0.56 Absolute Eosinophils 0.01 Absolute Basophils 0.04 Sodium 134 L Potassium 4.5 Chloride 104 Carbon Dioxide 22.6 Anion Gap 7.4 BUN 76 H Creatinine 2.0 H Est GFR (CKD-EPI 2020) 36.58 Glucose 135 H Calcium 8.8 Magnesium 2.3 Total Bilirubin 0.5 AST 61 H ALT 57 Alkaline Phosphatase 137 H Total Protein 6.3 L Albumin 1.9 L Vancomycin Trough Rheumatoid Factor HIV 1&2 Ag/Ab, 4th Gen
[2022-04-16 14:23] LABS: ANA Interpretation Positive (Negative); ANA Titer Pattern 1:80 Speckled
[2022-04-16] MEDS: Insulin Glargine 300 UNITS/3 ML PEN 50 UNITS SC (21:05)
[2022-04-17] VITALS (10 sets, daily range): BP systolic 154–181; BP diastolic 54–99; PULSE 54–61; RESP 14–19; TEMP 35.9–36.8; O2SAT 95–98
[2022-04-17] MEDS: AMPICILLIN/SULBACTAM 3 GM in Normal Saline 100 ML IVPB ×4 (02:38→20:08)
[2022-04-17] MEDS: Normal Saline Flush 10 ML SYR IVP ×7 (02:39→21:16)
[2022-04-17] MEDS: Normal Saline 500 ML 30 ML IV (02:40)
[2022-04-17 07:10] LABS: HCT 29.8 % (40.0-50.0); HGB 9.7 g/dL (13.5-17.5); MCH 32.7 pg (27.0-33.0); MCHC 32.6 % (32.0-36.0); MCV 100 fL (80-95); MPV 12.1 fL (8.0-11.0); Nucleated RBC 0.4 % (0.0-0.3); RBC 2.97 10^6/uL (4.36-5.78); RDW 14.8 % (11.8-14.1); WBC 7.24 10^3/uL (4.4-10.8)
[2022-04-17 07:44] LABS: Anisocytosis 1+; Diff Comment Manual Differential; Macrocytosis 1+
[2022-04-17 07:45] LABS: Absolute Lymphocyte Count 0.14 10^3/uL (1.2-3.4); Absolute Monocyte Count 0.43 10^3/uL (0.1-0.8); Absolute Neutrophil Count 6.52 10^3/uL (1.2-6.7); Bands % 2; Metamyelocytes % 2; Platelet Count 63 10^3/uL (130-400)
[2022-04-17] MEDS: Insulin Aspart 300 UNITS/3 ML PEN SC ×4 (08:09→21:12)
[2022-04-17] MEDS: Insulin Glargine 300 UNITS/3 ML PEN 20 UNITS SC (08:09)
[2022-04-17] MEDS: Allopurinol 100 MG TAB 400 MG PO (08:10)
[2022-04-17] MEDS: Carvedilol 12.5 MG TAB PO ×2 (08:11→20:08)
[2022-04-17] MEDS: Magnesium Oxide 400 MG TAB PO ×2 (08:11→20:07)
[2022-04-17] MEDS: Aspirin E.C. 81 MG TABEC PO (08:11)
[2022-04-17] MEDS: predniSONE 20 MG TAB 80 MG PO (08:11)
[2022-04-17 08:52] LABS: Anion Gap 8.5 mmol/L (3-11); CO2 22.5 mmol/L (21.0-32.0); Calcium 8.5 mg/dL (8.5-10.1); Chloride 104 mmol/L (98-107); Estimated GFR 36.58 (mL/min/1.73m2); Glucose 186 mg/dL (74-106); Magnesium 2.4 mg/dL (1.8-2.4); Potassium 4.4 mmol/L (3.5-5.1); Sodium 135 mmol/L (136-145)
[2022-04-17 08:55] LABS: BUN 88 mg/dL (7-18)
[2022-04-17 09:03] LABS: C-Reactive Protein 4.14 mg/dL (0.0-0.3)
--- NOTE | 2022-04-17 10:50 | CHAPLAIN ---
Bucky was sitting up in bed when I visited. He was pleasant and remembered meeting each other during a previous admission. He had visitors in the room with him. He said he's feeling okay. Medical staff are keeping an eye on cellulitis on his leg. I offered support and will continue to visit.
[2022-04-17 11:08] LABS: Myeloperoxidase Ab IgG <0.2 U; Proteinase 3 Ab (PR3) <0.2 U
--- NOTE | 2022-04-17 12:05 | PGE_ITS ---
Date of Service Date of service: 04/17/22 Time of Service: 12:05 Assessment and Plan Assessment and plan (1) Lower extremity cellulitis: Status: Acute Assessment and plan: Appearance of scattered nonblancing petechial rash on right lower extremeity suggests vasculitis; skin bx done - slightly better today, definitely not worse Cont Unsasyn MRSA screen negative BC neg x 72h (2) Thrombocytopenia: Status: Chronic Assessment and plan: Platelets , continues to drop; xarelto held. Minor bleeding from biopsy areas on his leg has stopped, dsd on - He has no critical or severe bleeding. Hgb has fallen > 2gm - it has gone from 12.1 to 9.7 in 4 days He does receive IVIG as outpatient - received second dose today - he usually gets 2 doses a month- He continues to be on predinisone. (3) Diabetic ulcer of right great toe: Status: Acute Assessment and plan: Does not appear currently to show acute infection. WBC 7.24, afebrile Will watch (4) Cirrhosis of liver: Status: Chronic Assessment and plan: Stable (5) Cardiomyopathy: Assessment and plan: HFrEF. No evidence of decompensation. Echo on 01/18/22: EF est. of 35-40%. Mod to severely dilated left ventricle. Mild aortic stenosis. Qualifiers: Cardiomyopathy type: dilated Qualified Code(s): I42.0 - Dilated cardiomyopathy (6) Acute on chronic renal insufficiency: Status: Acute Assessment and plan: Baseline creatinine in the 1.7-2.0 range in January/Feb/Mar of this year. Creatinine now 2.0. BUN 88 IVF discontinued - concerned about risk of volume overload given HFrEF. (7) Essential hypertension: Assessment and plan: Holding Losartan d/t acute on chronic renal insuff. SBP range stable at-S150s; monitor. (8) Gout: Assessment and plan: Cont allopurinol, however this is not gout. uric acid 4.4 - w/i normal range (9) Diabetes mellitus: Assessment and plan: Basal/bolus insulin. Increased basal to include 25 units lantus in the am for glucose ~ 170-270 with steroids. SS correction insulin dosing ACHS glucose monitoring. diabetic diet. Likely will see elevations related to steroids being used for vasculitis treatment. 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 Procalcitonin 04/12 23.8 High-dose prednisone indicated for vasculitis; 1mg/kg/day. Will give an initial dose of 80mg and if bx is positive, could escalate to 1mg/kg/day for the suggested 1 month, then taper. Bx obtained today by Dr Donaldson RLE US negative for DVT Labs ordered per recommendation of UTD for small vessel vasculitis: Acute hepatitis profile ANCA vasculitis panel Antinuclear antibody Anti-DNA C3 complement C4 complement Cryo globulin HIV Rheumatoid factor Contreras Antibody Lupus anticoagulant cascade\ All pending - I suspect he will be discharged prior to most results being received. All send outs Discussed with Dr. Lagos. Subjective Subjective Patient reports: no new complaints, pain is less, tolerating a regular diet, voiding w/o difficulty, bowel movement and afebrile; denies no flatus, flatus, diarrhea, blood in stool, vomiting or shortness of breath Exam Narrative Exam Narrative: Const:? Sitting in the chair. with feet elevated - awake, alert, no new complaints Eyes:? Normal conjunctiva and sclera. MINESH Neck:? Supple.? FROM Lungs:? Normal respiratory effort.? Lungs are clear. Cor:? RRR with murmur.? Good radial pulses GI:? Soft.? NT/ND. Neuro:? A+O x 3.? Normal speech, mentation. No gross motor or sensory deficit. Ext: Bilateral lower extremity edema right greater than left, however improving.?Scattered petechial rash below the knee on the right. Still no confuluent erythema. Continues to have significant tenderness to any palpation in same area. He can not tolerate the lightest touch - it has improved since yesterday and rash is lightening from the knee down Skin:?As above. Plantar aspect of right great toe ulcer with eschar, no drainage, no change since admission Psych: Affect appropriate. General appearance normal. Const General: ill appearing Nutritional Appearance: obese and edematous Orientation: alert, awake and oriented x3 Objective Last Vital Signs Temp 35.9 C L 04/17/22 07:43 Pulse 57 L 04/17/22 07:43 Resp 18 04/17/22 07:43 BP 154/77 H 04/17/22 07:43 Pulse Ox 98 04/17/22 07:43 Laboratory Results - last 24 hr 04/14/22 04/14/22 04/14/22 21:30 21:30 21:30 WBC RBC Hgb Hct MCV MCH MCHC RDW Plt Count MPV Immature Gran % Neutrophils % Band Neutrophils % Lymphocytes % Monocytes % Eosinophils % Basophils % Metamyelocytes % Nucleated RBC % Absolute Neutrophils Absolute Lymphocytes Absolute Monocytes Absolute Eosinophils Absolute Basophils RBC Morphology Anisocytosis Macrocytosis Sodium Potassium Chloride Carbon Dioxide Anion Gap BUN Creatinine Est GFR (CKD-EPI 2020) Glucose Calcium Magnesium C-Reactive Protein KIRTI Titer 1:80 Speckled KIRTI Titer 2 Not Applicable KIRTI Titer 3 Not Applicable KIRTI Interpretation Positive A Complement C3 136 Complement C4 36 Hepatitis A IgM Ab Negative Hep Bs Antigen Negative Hep B Core Total Ab Positive A Hepatitis C Antibody Negative 04/17/22 04/17/22 06:20 06:20 WBC 7.24 RBC 2.97 L Hgb 9.7 L Hct 29.8 L MCV 100 H MCH 32.7 MCHC 32.6 RDW 14.8 H Plt Count 63 L MPV 12.1 H Immature Gran % See Differential Neutrophils % 88.0 Band Neutrophils % 2 Lymphocytes % 2.0 Monocytes % 6.0 Eosinophils % 0.0 Basophils % 0.0 Metamyelocytes % 2 Nucleated RBC % 0.4 H Absolute Neutrophils 6.52 Absolute Lymphocytes 0.14 L Absolute Monocytes 0.43 Absolute Eosinophils 0.00 Absolute Basophils 0.00 RBC Morphology See Below Anisocytosis 1+ Macrocytosis 1+ Sodium 135 L Potassium 4.4 Chloride 104 Carbon Dioxide 22.5 Anion Gap 8.5 BUN 88 H* Creatinine 2.0 H Est GFR (CKD-EPI 2020) 36.58 Glucose 186 H Calcium 8.5 Magnesium 2.4 C-Reactive Protein 4.14 H KIRTI Titer KIRTI Titer 2 KIRTI Titer 3 KIRTI Interpretation Complement C3 Complement C4 Hepatitis A IgM Ab Hep Bs Antigen Hep B Core Total Ab Hepatitis C Antibody
[2022-04-17] MEDS: IMMUNE GLOBULIN 40 GM/400 ML BTL IVPB ×3 (12:49→16:03)
[2022-04-17 12:52] LABS: Dilute Russell Viper Venom 42.4 secs (25.2-42.2); LA Cascade Summary (See Note); Silica Clotting Time 39.8 secs (30.2-48.4)
[2022-04-17 14:45] LABS: dsDNA Ab, IgG <12.3 IU/mL (<30.0)
[2022-04-17 15:05] LABS: HBc IgM Ab, S Negative (Negative)
[2022-04-17 15:31] LABS: Sm (Smith) Ab, IgG 2.5 Units (<20.0)
--- NOTE | 2022-04-17 16:18 | PT.INTREAT ---
Date of service: 04/17/22 Time of Service: 16:18 PT Notes Visit Reasons: Cellulitis Physical Therapy Inpatient Treatment Note Date: 04/17/2022 Precautions: Fall. Standard. Activity as tolerated. Subjective: Politely requested to wait until infusion is done so he can try ambulation without any AD unencumbered by lines. States that he feels that R leg felt more swollen. Objective: General Observation: Supine in bed.? R leg erythematous and more swollen than yesterday. Mental Status: Alert and oriented as to person, place, time, and purpose. Able to pay attention, focus, and respond appropriately. Pain: 3-4/10 in R leg Vital Signs: WNL as closely monitored by nursing staff THERA EX: Alternate knee-to chest x 10 Supine hip abduction x 10 Heel slides x 10 Ankle PF/DF x 10 Assessment: Patient had ongoing infusion and preferred to be seen after. However, patient's infusion duration has been lengthened when PT came back the second time in the afternoon. Patient was only agreeable to bed level exercises for this session and politely declined ambulation as he stated that he walked on his own already this morning with a walker. Remaining goal for patient is to progress to unassisted ambulation up to 300 feet and do stairs training before discharge from [facility]. DISCHARGE RECOMMENDATIONS: [X] ? Home with no services.? Home when medically cleared by hospitalist. [] ? Home with services [specify] [] ? Home with outpatient PT [] [] ? SNF for continued rehabilitation [] [] ? Care Home Care [] [] ? SNF versus LTC based on ability to participate and progress [] PLAN: Will follow up patient tomorrow for stairs training and ambulation progression using no AD for short/long distances as tolerated. TREATMENT CODE/TIME: 36942 x 16 minutes beginning at 16:18 PM.
[2022-04-17] MEDS: Insulin Glargine 300 UNITS/3 ML PEN 50 UNITS SC (21:13)
[2022-04-18] MEDS: AMPICILLIN/SULBACTAM 3 GM in Normal Saline 100 ML IVPB ×2 (02:21→07:45)
[2022-04-18] MEDS: Normal Saline Flush 10 ML SYR IVP ×5 (02:21→09:18)
[2022-04-18 07:06] LABS: HCT 28.2 % (40.0-50.0); HGB 9.2 g/dL (13.5-17.5); MCH 32.7 pg (27.0-33.0); MCHC 32.6 % (32.0-36.0); MCV 100 fL (80-95); MPV 11.6 fL (8.0-11.0); RBC 2.81 10^6/uL (4.36-5.78); RDW 15.5 % (11.8-14.1); RDW-SD 57.1 fL
[2022-04-18 07:25] LABS: C-Reactive Protein 2.44 mg/dL (0.0-0.3); CREATININE 2.1 mg/dL (0.70-1.30); Calcium 8.3 mg/dL (8.5-10.1); Chloride 104 mmol/L (98-107); Glucose 172 mg/dL (74-106); Magnesium 2.4 mg/dL (1.8-2.4); Potassium 4.6 mmol/L (3.5-5.1); Sodium 133 mmol/L (136-145)
[2022-04-18 07:31] LABS: BUN 97 mg/dL (7-18)
[2022-04-18 07:39] LABS: Absolute Lymphocyte Count 0.48 10^3/uL (1.2-3.4); Absolute Neutrophil Count 7.04 10^3/uL (1.2-6.7); Bands % 3; Metamyelocytes % 1; Platelet Count 66 10^3/uL (130-400)
[2022-04-18 07:40] LABS: Diff Comment Manual Differential; RBC Morphology Normal
[2022-04-18] MEDS: Normal Saline 500 ML 100 ML IV (07:44)
[2022-04-18] MEDS: Aspirin E.C. 81 MG TABEC PO (07:46)
[2022-04-18] MEDS: Allopurinol 100 MG TAB 400 MG PO (07:46)
[2022-04-18] MEDS: Magnesium Oxide 400 MG TAB PO ×2 (07:46→19:37)
[2022-04-18] MEDS: Carvedilol 12.5 MG TAB PO ×2 (07:46→19:37)
[2022-04-18] MEDS: predniSONE 20 MG TAB 80 MG PO (07:46)
[2022-04-18 07:58] VITALS: BP 171/77; PULSE 57; RESP 18; TEMP 35.8; O2SAT 97
[2022-04-18] MEDS: Insulin Aspart 300 UNITS/3 ML PEN SC ×4 (07:59→21:17)
[2022-04-18] MEDS: Insulin Glargine 300 UNITS/3 ML PEN 20 UNITS SC (07:59)
--- NOTE | 2022-04-18 08:26 | PDOC.CMPRO ---
- If Service Date Differs Date of service: 04/18/22 Time of Service: 08:26 Care Management Progress Note S/O: Bucky was sitting up in bed when CM met with him. His was present at the time and participated in the conversation. Bucky shared that he is feeling better and is hoping to be discharged soon. He identified that his right leg feels more swollen today than yesterday but the erythema is definitely improving. Bucky uses a cane and a walker at home and will resume their use upon discharge. Neither Bucky nor his anticipate the need for any additional services. Per provider, Bucky's antibiotics will be changed from parenteral to oral today and, if he continues to improve, Braeden may be discharged tomorrow. A: 62 year old male admitted to [facility] 04/12/22 for Cellulitis P: Bucky will return home when ready per MD. He will follow up with his PCP and plan of care as prescribed and transport via private vehicle with his Bethanie. CM will support Bucky and assess for discharge concerns.
[2022-04-18 10:34] LABS: Creatine Kinase 30 U/L (39-308)
--- NOTE | 2022-04-18 13:23 | PT.INTREAT ---
Date of service: 04/18/22 Time of Service: 13:02 PT Notes Visit Reasons: Cellulitis Inpatient Physical Therapy Treatment Note [facility] Date: 04/18/2022 PRECAUTIONS: Activity as tolerated SUBJECTIVE: Bucky is pleasant and agreeable to participating in PT. He reports that he has been ambulating and transferring independently both witthin his room and in the hallway. He reports that he is able to complete all functional ADLs and has adaptive equipment at home. OBJECTIVE: PAIN: No c/o pain BED MOBILITY/TRANSFERS: Supine-sit: I with HOB flat Sit-supine: I with HOB flat Sit-stand: I Stand-sit: I Bed-chair: I Chair-bed: I GAIT Assistive Device: SPC Weight bearing: Full Assist: I Distance: 300' Deviation: Some reported CALDERON, slightly wide OSMANY THEREX: Patient reports independent completion of LE strengthening HEP. STAIRS: Up/down 3x4 and 2x6 using B rails and a step-to pattern with supervision ASSESSMENT: Patient tolerated session well, although with c/o some CALDERON with gait training. He tolerates gait training with SPC well, demonstrating independence, although with a noted slightly wide OSMANY. PLAN: Patient is independent with gait, transfers and completion of LE strengthening HEP, at this time and no longer requires inpatient PT interventions. TREATMENT CODE/TIME: 19 minutes; 03636 (13:02)
[2022-04-18 14:01] LABS: Cryoglobulin, S Negative %ppt (Negative)
[2022-04-18 15:32] VITALS: BP 154/74; PULSE 54; RESP 18; TEMP 36.3; O2SAT 98
--- NOTE | 2022-04-18 16:49 | W.PM.PROGNOT ---
Date of Service Date of service: 04/18/22 Time of Service: 16:49 Assessment and Plan Assessment and plan (1) Lower extremity cellulitis: Status: Acute Assessment and plan: Appearance of scattered nonblancing petechial rash on right lower extremeity suggests vasculitis; skin bx done - slightly better today, definitely not worse Cont Unsasyn MRSA screen negative BC neg x 72h (2) Thrombocytopenia: Status: Chronic Assessment and plan: Platelets , continues to drop; xarelto held. Minor bleeding from biopsy areas on his leg has stopped, dsd on - He has no critical or severe bleeding. Hgb has fallen > 2gm - it has gone from 12.1 to 9.7 in 4 days He does receive IVIG as outpatient - received second dose today - he usually gets 2 doses a month- He continues to be on predinisone. (3) Diabetic ulcer of right great toe: Status: Acute Assessment and plan: Does not appear currently to show acute infection. WBC 7.24, afebrile Will watch (4) Cirrhosis of liver: Status: Chronic Assessment and plan: Stable (5) Cardiomyopathy: Assessment and plan: HFrEF. No evidence of decompensation. Echo on 01/18/22: EF est. of 35-40%. Mod to severely dilated left ventricle. Mild aortic stenosis. Qualifiers: Cardiomyopathy type: dilated Qualified Code(s): I42.0 - Dilated cardiomyopathy (6) Acute on chronic renal insufficiency: Status: Acute Assessment and plan: Baseline creatinine in the 1.7-2.0 range in January/Feb/Mar of this year. Creatinine now 2.0. BUN 88 IVF discontinued - concerned about risk of volume overload given HFrEF. (7) Essential hypertension: Assessment and plan: Holding Losartan d/t acute on chronic renal insuff. SBP range stable at-S150s; monitor. (8) Gout: Assessment and plan: Cont allopurinol, however this is not gout. uric acid 4.4 - w/i normal range (9) Diabetes mellitus: Assessment and plan: Basal/bolus insulin. Increased basal to include 25 units lantus in the am for glucose ~ 170-270 with steroids. SS correction insulin dosing ACHS glucose monitoring. diabetic diet. Likely will see elevations related to steroids being used for vasculitis treatment. 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 Procalcitonin 04/12 23.8 High-dose prednisone indicated for vasculitis; 1mg/kg/day. Will give an initial dose of 80mg and if bx is positive, could escalate to 1mg/kg/day for the suggested 1 month, then taper. Bx obtained today by Dr Donaldson RLMelanie US negative for DVT Labs ordered per recommendation of UTD for small vessel vasculitis: Acute hepatitis profile ANCA vasculitis panel Antinuclear antibody Anti-DNA C3 complement C4 complement Cryo globulin HIV Rheumatoid factor Contreras Antibody Lupus anticoagulant cascade\ All pending - I suspect he will be discharged prior to most results being received. All send outs Discussed with Dr. Lagos. Subjective Subjective Patient reports: no new complaints, feels better, tolerating liquids well, tolerating a regular diet, voiding w/o difficulty and afebrile; denies shortness of breath Exam Const General: cooperative, comfortable, no acute distress and ill appearing chronically Orientation: alert, awake and oriented x3 [facility] Head: normal to inspection, normocephalic and atraumatic Face and sinus: normal facial exam Mouth: moist mucous membranes Eyes General: appearance normal, both eyes and all related structures Conjunctivae: conjunctivae normal Neck Neck: normal visual inspection and full ROM Resp Effort & Inspection: normal respiratory effort and able to speak in complete sentences Auscultation: diminished lung sounds bilaterally in the lower lung cano Cardio Rate: regular rate Rhythm: regular rhythm GI Inspection: obesity Palpation: soft, no guarding and nontender Skin General skin exam: no rashes or lesions noted Neuro General: patient alert, patient awake, patient oriented x3 and moves all extremities Cognition: normal cognition Speech: speech normal Gait: normal gait Motor: muscle tone normal throughout, strength 5/5 throughout and no movement abnormalities noted Sensory Exam: no sensory deficits noted Extrem General: full ROM, capillary refill normal, no calf tenderness and pedal edema bilaterally non-pitting and 2+ Psych Appearance: grossly normal Mental Status: mental status grossly normal Objective Last Vital Signs Temp 36.3 C L 04/18/22 15:32 Pulse 54 L 04/18/22 15:32 Resp 18 04/18/22 15:32 BP 154/74 H 04/18/22 15:32 Pulse Ox 98 04/18/22 15:32 Laboratory Results - last 24 hr 04/14/22 04/18/22 04/18/22 21:30 06:30 06:30 WBC 8.00 RBC 2.81 L Hgb 9.2 L Hct 28.2 L MCV 100 H MCH 32.7 MCHC 32.6 RDW 15.5 H Plt Count 66 L MPV 11.6 H Immature Gran % 0.0 Neutrophils % 85.0 Band Neutrophils % 3 Lymphocytes % 6.0 Monocytes % 5.0 Eosinophils % 0.0 Basophils % 0.0 Metamyelocytes % 1 Nucleated RBC % 2.0 H Absolute Neutrophils 7.04 H Absolute Lymphocytes 0.48 L Absolute Monocytes 0.40 Absolute Eosinophils 0.00 Absolute Basophils 0.00 RBC Morphology Normal Sodium 133 L Potassium 4.6 Chloride 104 Carbon Dioxide 24.0 Anion Gap 5.0 BUN 97 H* Creatinine 2.1 H Est GFR (CKD-EPI 2020) 34.50 Glucose 172 H Calcium 8.3 L Magnesium 2.4 Creatine Kinase C-Reactive Protein 2.44 H Serum Cryoglobulins Negative 04/18/22 06:30 WBC RBC Hgb Hct MCV MCH MCHC RDW Plt Count MPV Immature Gran % Neutrophils % Band Neutrophils % Lymphocytes % Monocytes % Eosinophils % Basophils % Metamyelocytes % Nucleated RBC % Absolute Neutrophils Absolute Lymphocytes Absolute Monocytes Absolute Eosinophils Absolute Basophils RBC Morphology Sodium Potassium Chloride Carbon Dioxide Anion Gap BUN Creatinine Est GFR (CKD-EPI 2020) Glucose Calcium Magnesium Creatine Kinase 30 L C-Reactive Protein Serum Cryoglobulins
[2022-04-18 19:36] VITALS: BP 170/89; PULSE 89; RESP 16; TEMP 36.4; O2SAT 96
[2022-04-18] MEDS: Insulin Glargine 300 UNITS/3 ML PEN 50 UNITS SC (21:14)
[2022-04-18 23:05] VITALS: BP 163/82; PULSE 60; RESP 21; TEMP 36.2; O2SAT 98
[2022-04-19] MEDS: Normal Saline Flush 10 ML SYR IVP ×2 (06:16→14:56)
[2022-04-19 07:17] LABS: Abs Immature Grans 1.53 10^3/uL (0.0-0.06); HCT 32.5 % (40.0-50.0); HGB 10.4 g/dL (13.5-17.5); MCH 32.5 pg (27.0-33.0); MCV 102 fL (80-95); MPV 12.3 fL (8.0-11.0); RDW 15.4 % (11.8-14.1); RDW-SD 58.2 fL; WBC 13.89 10^3/uL (4.4-10.8)
[2022-04-19 07:27] VITALS: BP 166/94; PULSE 60; RESP 18; TEMP 35.9; O2SAT 0
[2022-04-19 07:35] LABS: Absolute Lymphocyte Count 1.53 10^3/uL (1.2-3.4); Absolute Monocyte Count 0.97 10^3/uL (0.1-0.8); Absolute Neutrophil Count 10.56 10^3/uL (1.2-6.7); Atypical Lymphocytes % 0; Bands % 2; Platelet Count 78 10^3/uL (130-400)
[2022-04-19 07:36] LABS: Basophilic Stippling Present; Diff Comment Manual Differential; Macrocytosis 1+; Metamyelocytes % 5; Myelocytes % 1
[2022-04-19 07:37] LABS: Polychromasia Present
[2022-04-19 07:42] LABS: Anion Gap 4.5 mmol/L (3-11); C-Reactive Protein 1.86 mg/dL (0.0-0.3); CO2 25.5 mmol/L (21.0-32.0); CREATININE 1.9 mg/dL (0.70-1.30); Calcium 8.4 mg/dL (8.5-10.1); Chloride 107 mmol/L (98-107); Estimated GFR 38.91 (mL/min/1.73m2); Glucose 99 mg/dL (74-106); Potassium 4.9 mmol/L (3.5-5.1); Sodium 137 mmol/L (136-145)
[2022-04-19 07:47] LABS: BUN 88 mg/dL (7-18)
[2022-04-19] MEDS: predniSONE 20 MG TAB 80 MG PO (08:15)
[2022-04-19] MEDS: Carvedilol 12.5 MG TAB PO (08:15)
[2022-04-19] MEDS: Magnesium Oxide 400 MG TAB PO (08:15)
[2022-04-19] MEDS: Aspirin E.C. 81 MG TABEC PO (08:15)
[2022-04-19] MEDS: Insulin Glargine 300 UNITS/3 ML PEN 20 UNITS SC (08:15)
[2022-04-19] MEDS: Allopurinol 100 MG TAB 400 MG PO (08:15)
--- NOTE | 2022-04-19 08:46 | PDOC.CMDIS ---
- If Service Date Differs Date of service: 04/19/22 Time of Service: 08:46 LACE Index Scoring Tool - Questions: Length of Stay (in days): 7 - 13 Acuity (Admit via E.D.?): Yes Comorbidities: Previous M.I., Any Tumor E.D. Visits: 2 - Answers: Total Score: 13 Risk of Readmission: High Risk Care Management Discharge Reason for Hospitalization: Cellulitis Discharge Plan: Bucky will return home when ready per MD. He will follow up with his PCP and plan of care as prescribed and transport via private vehicle with his Bethanie. Patient/Family Education Needs: Review discharge instructions, discuss Ask Me Three.
--- NOTE | 2022-04-19 08:48 | INDS_ITS ---
Date of service: 04/19/22 PT Notes Visit Reasons: Cellulitis Physical Therapy Inpatient Discharge Summary Date: 04/18/2022 Dates of Service: 04/16/2022 through 04/18/2022 This is a clinical summary of care provided for the duration of dates listed above. No charge was made in the completion of this documentation. Referring Doctor:? Tatiana Levy,? ENAMEL FINISHER PT Orders: PT CONSULT: D/C Non-PT Dependent Precautions: Fall. Standard. Activity as tolerated. Patient Profile/Admitting Diagnosis:? Braeden is a 62-year-old female who presented to the ED on 04/12/2020 for worsening neck pain, leg pain and rash.? Patient is diagnostically, No synovitis on the right worse, diabetic cholesterol prior to returning, cirrhosis of liver, cardiomyopathy with HFrEF of 30%-40%, chronic renal insufficiency, essential hypertension, DM, vasculitis. PMHX: All Active Problems?(Updated 04/13/22 @ 05:16 by Braeden Lagos MD) Vasculitis (Acute) Acute on chronic renal insufficiency (Acute) Lower extremity cellulitis (Acute) Renal insufficiency (Chronic) Diabetic ulcer of right great toe (Acute) Impacted cerumen of both ears (Acute) HTN (hypertension) (Chronic) Cirrhosis of liver (Acute) Subclavian vein thrombosis (Acute) Myopathy (Acute) Barretts esophagus (Acute) Hearing deficit (Acute) Epistaxis (Acute) Chronic anemia (Acute) Edema (Acute) Heart murmur, systolic (Acute) CALDERON (dyspnea on exertion) (Acute) Diastolic dysfunction (Acute) Excess ear wax (Acute) Weakness of both legs (Acute) Nocturnal cough (Acute) Medication monitoring encounter (Acute) Skin cancer, basal cell (Acute) face Elevated troponin (Acute) Medical History? 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 Colonoscopy - MAC (~2009) EGD - MAC (~2009) LITHOTRIPSY MUSCLE BIOPSY POWER PORT Repair of umbilical hernia Social History/Home Situation: Lives with in a multilevel home with several steps to enter with rails.? He has another set of stairs to their bedroom with rails on B sides. ? Receives reed ly Ig infusion at this hospital. Equipment Owned/DME: Powered wheelchair, FWW, SPC Subjective: NT. See most recent SPORTS JOURNALIST notes. Objective: General Observation: NT. See most recent SPORTS JOURNALIST notes. Mental Status: NT. See most recent SPORTS JOURNALIST notes. Pain: NT. See most recent SPORTS JOURNALIST notes. Vital Signs: NT. See most recent SPORTS JOURNALIST notes. ROM: Right Upper Extremity: ? Shoulder Flexion WFL. Shoulder abduction WFL. Elbow flexion WFL. Wrist flexion WFL. Functional opening and closing of hand WFL. Left Upper Extremity:? Shoulder Flexion WFL. Shoulder abduction WFL. Elbow flexion WFL. Wrist flexion WFL. Functional opening and closing of hand WFL. Right Lower Extremity: Hip flexion WFL. Hip abduction WFL. Knee flexion WFL. Ankle dorsiflexion WFL. Ankle plantarflexion WFL. Left Lower Extremity: Hip flexion WFL. Hip abduction WFL. Knee flexion WFL. Ankle dorsiflexion WFL. Ankle plantarflexion WFL. Strength: Right Upper Extremity: Shoulder flexors 5/5. Shoulder abductors 5/5. Elbow flexors 5/5. Elbow extensors 5/5. Professor Of Fine Art strong. Left Upper Extremity: Shoulder flexors 5/5. Shoulder abductors 5/5. Elbow flexors 5/5. Elbow extensors 5/5. Professor Of Fine Art strong. Right Lower Extremity: Hip flexors 5/5. Hip abductors 5/5. Knee flexors 4/5. Knee extensors 4/5. Ankle dorsiflexors 4/5. Ankle plantarflexors 4/5. Left Lower Extremity: Hip flexors 4/5. Hip abductors 4/5. Knee flexors 4/5. Knee extensors 4/5. Ankle dorsiflexors 4/5. Ankle plantarflexors 4/5. BED MOBILITY/TRANSFERS: ? Supine-sit: I with HOB flat Sit-supine: I with HOB flat Sit-stand: I? Stand-sit: I Bed-chair: I Chair-bed: I? GAIT? Assistive Device: SPC? Weight bearing: Full Assist: I? Distance: 300'? Deviation: Some reported CALDERON, slightly wide OSMANY Balance: Static Sitting: Normal Dynamic Sitting: Normal Static Standing: Fair Dynamic Standing: Fair Assessment: Patient at baseline did not need any assistive device indoors.? He only uses motorized wheelchair in the community for activities needing long distance walking.? He will be skilled once a day for stairs training and mobility upgrade to independent walking indoors about 50 feet without AD.? Patient presents with clinical signs and symptoms consistent with current/admitting diagnoses that have resulted to mobility limitations, gait instability, and overall ADL decline as demonstrated by the following impairment level findings: 1.? Decreased strength to R LE major muscle groups 2.? Impaired tanding balance 3.? Impaired activity tolerance 4.? Shortness of breath 5.? Swelling Impairments are contributing to the following functional limitations: 1.? Difficulty with ambulation without assistive device 2.? Increased completion time for mobility ADL performance 3.? Increased risk for falls 4.? Difficulty with managing steps alone safely Goals: Goals X1 week 1. Independent gait on level surface with use of no AD for at least 50 feet without report of pain nor dyspnea with improved step length and height MET 2. Independent stair negotiation while holding onto B rails for at least 15 steps without report of pain nor dyspnea MET 3. Independent with SPC for ambulation of up to 300 feet MET DISCHARGE RECOMMENDATIONS: [X] ? Home with no services.? HOme when medically cleared by hospitalist. [] ? Home with services [specify] [] ? Home with outpatient PT [] [] ? SNF for continued rehabilitation [] [] ? [facility] [] [] ? SNF versus LTC based on ability to participate and progress [] TREATMENT CODE/TIME: FLAVIA Thank you for the opportunity to participate in the care of this patient. Bri Ryder PT, DPT, CLT [facility] [place], [place]
[2022-04-19] MEDS: Insulin Aspart 300 UNITS/3 ML PEN SC (11:24)
[2022-04-19 12:29] LABS: Bilirubin Negative (Negative); Blood Trace-lysed (Negative); Clarity Clear (Clear); Glucose Negative (Negative); Ketones Negative (Negative); Leukocyte Esterase Negative (Negative); Nitrite Negative (Negative); Urobilinogen 0.2 EU/dL (Up TO 0.2)
[2022-04-19 12:39] LABS: Lab Add On Test DONE
[2022-04-19 12:45] LABS: Bacteria Few HPF (Negative); C & S Indicated? No; Casts Negative LPF (Negative); Crystals Negative HPF (Negative); Epithelial Cells Rare HPF (Negative); Mucus Negative (Negative); Other Cells Negative (Negative); WBC Negative HPF (0-5)
[2022-04-19 13:13] LABS: Procalcitonin 0.7 ng/mL
--- NOTE | 2022-04-19 14:06 | W.PM.DS.N ---
Date of service: 04/19/22 Time of Service: 12:00 DS: Diagnosis Discharge Diagnosis (1) Lower extremity cellulitis: Status: Acute (2) Thrombocytopenia: Status: Chronic (3) Diabetic ulcer of right great toe: Status: Acute (4) Cirrhosis of liver: Status: Chronic (5) Acute on chronic renal insufficiency: Status: Acute (6) Essential hypertension: Discharge Plan Disposition Patient Disposition: HOME Condition: Stable Discharge Details Reason For Visit: Cellulitis Admit Date/Time: 04/12/22 21:20 Admit Provider: Braeden Lagos Attending Provider: Braeden Lagos Primary Care Provider: Jazmine Baer V Hospital Course Hospital Course: This is a 62 yo male with a PMH of DM2, HTN, CKD, NSTEMIS, pulmonary embolism, cardiomyopathy, Cirrhosis, Barretts esophagus, chronic anemia.? He presented to the [facility] ED 04/13/2022 with pain and rash in the RLE.? He was seen the previous day in the ED with then of bilateral foot pain R>L, fever and one episode of emesis.? He attributed his RLE foot pain to gout. US of BLEs were negative for DVT.? Temp of 39.9, then decreased to 37.7. With IV toradol and fluids he felt better.? His lactate was noted to be 2.1 then decreased to 1.9 after fluid administration.? CXR and UA were negative.? He was noted to have a right toe wound that is chronic; some erythema at the site noted, but no drainage.? Keflex prescribed.? He returned on this date because of worsening symptoms in the RLE. He also was noted to have a cough at time of both ED visits; CXR negative.? WBC counts normal.? CT of RLE was negative for evidence of faciitis or abscess.? He was started on Unasyn and vancomycin. A skin biopsy was done of his right lower leg showed neutrophilic inflammation which is deeply extending, consistent with infection, not vasculitis. A gram stain was performed and it showed no evidence of bacterial organisms or fungus. He is being discharged to home without antibiotics and will have labs checked on 04/24/2022 and follow up with PCP. Home Meds and New Rx's Prescriptions: New prednisone 10 mg tablet See Taper PO DAILY Qty: 108 0RF Taper: Prednisone 10mg taper 60 mg Daily for 5 Days and 0 Hour 50 mg Daily for 5 Days and 0 Hour 40 mg Daily for 5 Days and 0 Hour 30 mg Daily for 5 Days and 0 Hour 20 mg Daily for 5 Days and 0 Hour 10 mg Daily for 5 Days 5 mg Daily for 5 Days Continued Aranesp (in polysorbate) 60 mcg/mL solution 60 mcg IV Q2W PRN Label Comments: Through [facility] Outpatient Infusion Venofer 200 mg iron/10 mL solution 300 mg IV .Q30 PRN Label Comments: Through [facility] Rx Instructions: administer over 30 mins carvedilol 12.5 mg tablet 12.5 mg PO BID Qty: 180 3RF Rx Instructions: must administer with a meal/food epoetin matt 20,000 unit/mL solution 20,000 unit subcut .every other week Solu-Medrol (PF) 125 mg/2 mL recon soln 125 mg IM MONTHLY Humalog U-100 Insulin 100 unit/mL cartridge 100 unit subcut AC Label Comments: sliding scale Rx Instructions: as directed multivitamin [Daily Multi-Vitamin] 1 EACH tablet 1 tab PO DAILY allopurinol 100 mg tablet 400 mg PO DAILY aspirin 81 mg Tablet,Delayed Release (Dr/Ec) 81 mg PO DAILY Qty: 100 0RF magnesium oxide 400 mg (241.3 mg magnesium) Tablet 400 mg PO BID Qty: 60 1RF furosemide 40 mg tablet 40 mg PO BID Qty: 60 0RF canagliflozin 100 mg tablet 100 mg PO DAILY Qty: 30 1RF insulin glargine [Lantus Solostar U-100 Insulin] 100 UNIT/1 ML insulin pen 50 unit SQ HS Qty: 0 0RF nitroglycerin 0.4 mg tablet, sublingual 0.4 mg sublingual Q5-15M PRNQty: 30 0RF Rx Instructions: do not exceed 3 doses per episode losartan 50 mg tablet 75 mg PO DAILY Discontinued colchicine 0.6 mg capsule 0.6 mg PO DIRECTED cephalexin 500 mg tablet 500 mg PO BID 10 Days Qty: 20 0RF benzonatate 100 mg capsule 100 mg PO BID PRN (Reason: cough) 7 Days Qty: 14 0RF Rx Instructions: Take one tablet twice daily as needed for cough No Action GAMAGUARD IVIG MONTHLY FOR 2 DAYS ondansetron [Zofran ODT] 4 mg tablet,disintegrating 4 mg PO BID PRN Discharge Instructions Instructions: Cellulitis (DC) Additional Instructions: The skin biopsy of your lower leg showed neutrophilic inflammation which is deeply extending, consistent with infection, not vasculitis. A gram stain was performed and it showed no evidence of bacterial organisms or fungus. We are not sending you home with antibiotics. Have your labs checked on 04/24/2022 prior to your appointment with Dr Baer. Return to emergency department if fevers, or worsening rash. Stand Alone Forms: Nursing Discharge Form Referrals: Jazmine Baer MD [Primary Care Provider] - 04/26/22 10:00 am Activity:: Activity as Tolerated Equipment/Supplies:: No Equipment Needed Diet:: Carb Counting Discharge Orders Other Ambulatory Orders: Complete Blood Count w/Diff (Routine) Location: None Selected Ordered By: Tatiana Levy Comprehensive Metabolic Panel (Routine) Location: None Selected Ordered By: Tatiana Levy Discharge Data Discharge Date/Time-TO BE ENTERED AT DEPARTURE: 04/19/22 15:56 DS: Summary Time Spent with Patient providing and/or coordinating discharge services: Greater than 30 minutes Status at Discharge Functional status at discharge: uses cane/walker Overall status at discharge: patient is progressing back to baseline Mental Status: mental status grossly normal Speech and Movement: speech and movement normal Mood: congruent mood Affect: normal affect Exam Const General: cooperative, comfortable, no acute distress and ill appearing chronically Orientation: alert, awake and oriented x3 HENMT Head: normal to inspection, normocephalic and atraumatic Face and sinus: normal facial exam Mouth: moist mucous membranes Eyes General: appearance normal, both eyes and all related structures Conjunctivae: conjunctivae normal Neck Neck: normal visual inspection and full ROM Resp Effort & Inspection: normal respiratory effort and able to speak in complete sentences Auscultation: diminished lung sounds bilaterally in the lower lung cano Cardio Rate: regular rate Rhythm: regular rhythm GI Inspection: obesity Palpation: soft, no guarding and nontender Skin General skin exam: no rashes or lesions noted Neuro General: patient alert, patient awake, patient oriented x3 and moves all extremities Cognition: normal cognition Speech: speech normal Gait: normal gait Motor: muscle tone normal throughout, strength 5/5 throughout and no movement abnormalities noted Sensory Exam: no sensory deficits noted Extrem General: full ROM, capillary refill normal, no calf tenderness and pedal edema bilaterally non-pitting and 2+ Psych Appearance: grossly normal Mental Status: mental status grossly normal Speech and Movement: speech and movement normal Mood: congruent mood Affect: normal affect DS: Data Vitals/I&O Vitals and I&O: Vital Signs Temperature 35.9 C L 04/19/22 07:27 Temperature Source Tympanic 04/19/22 07:27 Pulse 60 04/19/22 07:27 Pulse Rhythm Regular 04/19/22 08:57 Respiratory Rate 18 04/19/22 07:27 Respiratory Effort Non-Labored 04/19/22 08:57 Respiratory Depth Normal 04/19/22 08:57 Respiratory Pattern Normal 04/19/22 08:57 Blood Pressure 166/94 H 04/19/22 07:27 Blood Pressure Position Sitting 04/12/22 18:10 Pulse Oximetry 0 L 04/19/22 07:27 Oxygen Delivery Method Room Air 04/19/22 07:27 Oxygen Flow Rate 0 04/19/22 07:27 Pain Level 2 04/19/22 07:27 Comment 04/18/22 07:58 Intake & Output 04/18/22 04/19/22 04/19/22 23:59 11:59 23:59 Intake Total 720 / 1901.667 180 / 180 Output Total 700 / 2700 1400 / 1400 Balance 20 / -798.333 -1220 / -1220 Intake: Oral 720 / 1630 180 / 180 Output: Urine 700 / 2700 1400 / 1400 Other: Urine Color Yellow Yellow Urine Appearance Clear Clear Urine Odor Strong Comment Per pt. report, void x3 in the toilet throughout the day thus far. 300 mL this void; unsure of other volumes. Stool Characteristics Soft Formed Brown Voiding Methods Toilet Toilet Data Completed and Pending Labs on day of discharge: Labs from last 24 hours 04/19/22 04/19/22 04/19/22 11:45 06:24 06:24 WBC RBC Hgb Hct MCV MCH MCHC RDW Plt Count MPV Immature Gran % Neutrophils % Band Neutrophils % Lymphocytes % Atypical Lymphs % Monocytes % Eosinophils % Basophils % Metamyelocytes % Myelocytes % Nucleated RBC % Absolute Neutrophils Absolute Lymphocytes Absolute Monocytes Absolute Eosinophils Absolute Basophils RBC Morphology Polychromasia Basophilic Stippling Macrocytosis Sodium Potassium Chloride Carbon Dioxide Anion Gap BUN Creatinine Est GFR (CKD-EPI 2020) Glucose Calcium C-Reactive Protein Procalcitonin 0.7 Urine Color Yellow Urine Clarity Clear Urine pH 6.0 Ur Specific [place] 1.020 Urine Protein Negative Urine Ketones Negative Urine Blood Trace-lysed H Urine Nitrite Negative Urine Bilirubin Negative Urine Urobilinogen 0.2 Ur Leukocyte Esterase Negative Urine RBC 3-5 H Urine WBC Negative Ur Epithelial Cells Rare Urine Crystals Negative Urine Bacteria Few Urine Casts Negative Urine Mucus Negative Urine Other Negative Ur Culture Indicated? No Urine Glucose Negative Serum Cryoglobulins Add-On Test Request DONE 04/19/22 04/19/22 04/14/22 06:24 06:24 21:30 WBC 13.89 H RBC 3.20 L Hgb 10.4 L Hct 32.5 L MCV 102 H MCH 32.5 MCHC 32.0 RDW 15.4 H Plt Count 78 L MPV 12.3 H Immature Gran % 0.0 Neutrophils % 74.0 Band Neutrophils % 2 Lymphocytes % 11.0 Atypical Lymphs % 0 Monocytes % 7.0 Eosinophils % 0.0 Basophils % 0.0 Metamyelocytes % 5 Myelocytes % 1 Nucleated RBC % 0.0 Absolute Neutrophils 10.56 H Absolute Lymphocytes 1.53 Absolute Monocytes 0.97 H Absolute Eosinophils 0.00 Absolute Basophils 0.00 RBC Morphology See Below Polychromasia Present Basophilic Stippling Present Macrocytosis 1+ Sodium 137 Potassium 4.9 Chloride 107 Carbon Dioxide 25.5 Anion Gap 4.5 BUN 88 H* Creatinine 1.9 H Est GFR (CKD-EPI 2020) 38.91 Glucose 99 Calcium 8.4 L C-Reactive Protein 1.86 H Procalcitonin Urine Color Urine Clarity Urine pH Ur Specific [place] Urine Protein Urine Ketones Urine Blood Urine Nitrite Urine Bilirubin Urine Urobilinogen Ur Leukocyte Esterase Urine RBC Urine WBC Ur Epithelial Cells Urine Crystals Urine Bacteria Urine Casts Urine Mucus Urine Other Ur Culture Indicated? Urine Glucose Serum Cryoglobulins Negative Add-On Test Request PFSH All Active Problems (Updated 04/20/22 @ 00:05 by EDDA HOUSE) Thrombocytopenia (Chronic) Acute on chronic renal insufficiency (Acute) Lower extremity cellulitis (Acute) Renal insufficiency (Chronic) Diabetic ulcer of right great toe (Acute) Impacted cerumen of both ears (Acute) HTN (hypertension) (Chronic) Cirrhosis of liver (Chronic) Subclavian vein thrombosis (Acute) Myopathy (Acute) Barretts esophagus (Acute) Hearing deficit (Acute) Epistaxis (Acute) Chronic anemia (Acute) Edema (Acute) Heart murmur, systolic (Acute) CALDERON (dyspnea on exertion) (Acute) Diastolic dysfunction (Acute) Excess ear wax (Acute) Weakness of both legs (Acute) Nocturnal cough (Acute) Medication monitoring encounter (Acute) Skin cancer, basal cell (Acute) face Elevated troponin (Acute) Medical History Basal cell carcinoma, face Cardiomyopathy Chronic kidney disease Diabetes mellitus Duodenitis DVT (deep venous thrombosis) Essential hypertension Gout Hypercholesterolemia 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 Sister Diabetes PATERNAL UNCLE Personal history of malignant neoplasm STOMACH Social History Smoking/Tobacco Use Status: Never Smoking risk assessment performed?: Yes Alcohol Intake: never Drug use: Never Do you feel safe at home: Yes Do you feel safe in your relationship?: Yes
[2022-04-19] MEDS: Heparin 500 UNITS/5 ML SYRINGE IVP (14:57)
== END 2022-04-19 15:56 | disposition home or self-care (01) | DRG 603 ==
LOC: ER 22:34 → MS 22:51
PROVIDERS: Emergency Medicine; Internal Medicine; Nurse Practitioner Acute Care; Nurse Practitioner Family; Admitting Provider Family Medicine; Emergency Provider Emergency Medicine; PCP Family Medicine; Visit Provider Family Medicine
DX: L03.115 Cellulitis of right lower limb (principal); Z68.41 Body mass index [BMI] 40.0-44.9, adult; L97.518 Non-pressure chronic ulcer of other part of right foot with other specified severity; I50.20 Unspecified systolic (congestive) heart failure; I13.0 Hypertensive heart and chronic kidney disease with heart failure and stage 1 through stage 4 chronic kidney disease, or unspecified chronic kidney disease; I42.0 Dilated cardiomyopathy; L95.9 Vasculitis limited to the skin, unspecified; Z79.4 Long term (current) use of insulin; E11.22 Type 2 diabetes mellitus with diabetic chronic kidney disease; K74.60 Unspecified cirrhosis of liver; K22.70 Barrett's esophagus without dysplasia; D64.9 Anemia, unspecified; I51.89 Other ill-defined heart diseases; Z86.718 Personal history of other venous thrombosis and embolism; E78.00 Pure hypercholesterolemia, unspecified; I25.2 Old myocardial infarction; E66.9 Obesity, unspecified; E11.621 Type 2 diabetes mellitus with foot ulcer; I35.0 Nonrheumatic aortic (valve) stenosis; M10.9 Gout, unspecified; N28.9 Disorder of kidney and ureter, unspecified; N18.32 Chronic kidney disease, stage 3b; I77.6 Arteritis, unspecified; D69.6 Thrombocytopenia, unspecified
CPT/HCPCS: 11104; 36415; 36416; 80048; 80053; 82550; 82962; 84145; 85652; 86704; 86709; 86803; 87040; 87081; 87116; 87340; 87389; 87635; 96365; 96367; 96375; 97110; 97162; 97530; 99222; 99285; J1650; 73700; 80202; 81003; 81015; 82595; 83036; 83516; 83605; 83735; 84550; 85025; 86038; 86140; 86160; 86225; 86235; 86431; 86705; 88305; 88312; 99223; 99232; 99233; 99239; J0295; J0881; J1170; J1459; J3490; J7512

== ENCOUNTER 2022-04-26 11:57 | Outpatient (REF) | payer MEDICARE, SELFPAY | END 2022-04-26 11:58 | disposition home or self-care (01) | LOC: NCHCN 11:57 | PROVIDERS: PCP Family Medicine; Visit Provider Family Medicine | DX: L03.115 Cellulitis of right lower limb (principal) | CPT/HCPCS: 87077; 87070; 87186; 87205 ==

== ENCOUNTER 2022-04-30 02:16 | Outpatient (RCR) | payer MEDICARE, SELFPAY ==
[2022-04-10 00:15] VITALS: BP 155/65; PULSE 53; RESP 18; TEMP 36.8
[2022-04-30 08:18] LABS: Abs Immature Grans 0.02 10^3/uL (0.0-0.06); Absolute Basophil Count 0.01 10^3/uL (0.0-0.2); Absolute Eosinophil Count 0.03 10^3/uL (0.0-0.7); Absolute Lymphocyte Count 0.27 10^3/uL (1.2-3.4); Absolute Monocyte Count 0.29 10^3/uL (0.1-0.8); Basophils % 0.2; Eosinophils % 0.6; HCT 36.1 % (40.0-50.0); HGB 11.4 g/dL (13.5-17.5); Immature Grans % 0.4; Lymphocytes % 5.1; MCH 32.6 pg (27.0-33.0); MCHC 31.6 % (32.0-36.0); MCV 103 fL (80-95); Monocytes % 5.5; Neutrophils % 88.2; RDW 16.4 % (11.8-14.1); RDW-SD 62.1 fL; WBC 5.32 10^3/uL (4.4-10.8)
[2022-04-30 08:26] LABS: CREATININE 1.5 mg/dL (0.70-1.30); Estimated GFR 51.67 (mL/min/1.73m2)
[2022-04-30 08:29] LABS: Platelet Count 39 10^3/uL (130-400)
[2022-04-30 08:38] LABS: Iron 114 ug/dL (65-175); Total Iron Binding Capacity 295 ug/dL (250-450); Transferrin Sat 39 % (20-55)
[2022-04-30] MEDS: Normal Saline Flush 10 ML SYR IVP (09:51)
== END 2022-05-09 23:59 | disposition home or self-care (01) ==
LOC: INF 02:16
PROVIDERS: PCP Family Medicine; Visit Provider Family Medicine
DX: D50.9 Iron deficiency anemia, unspecified (principal); D63.1 Anemia in chronic kidney disease; Z45.2 Encounter for adjustment and management of vascular access device
CPT/HCPCS: 36591; 96372; 82565; 83540; 83550; 85025; J0881

== ENCOUNTER → 2022-05-22 01:37 | Outpatient (CLI) | payer MEDICARE, SELFPAY ==
--- NOTE | 2022-05-22 10:00 | DI.DEXA_ITS ---
Exam(s) XR DEXA BONE DENSITY W/WO MAJO EXAM: XR DEXA BONE DENSITY W/WO MAJO CLINICAL HISTORY: OTHER SPECIFIED DISORDERS OF BONE DENSITY AND STRUCTURE, M85.88; TECHNIQUE: COMPARISON: CR XR DEXA BONE DENSITY W/WO MAJO from 04/27/2020 FINDINGS: Lateral Spine Image: Unremarkable. No compression deformities identified. Left hip: Total T-Score: 0.3. This compares to 0.6 on the prior examination. Total Z-Score: 0.8 T- and Z-scores: Within normal limits. Lumbar Spine: Total T-Score: 2.1. This compares to 1.7 on the prior examination. Total Z-Score: 2.9 T- and Z-scores: Within normal limits. IMPRESSION: No evidence of osteoporosis.
== END ==
PROVIDERS: PCP Family Medicine; Visit Provider Student in an Organized Health Care Education/Training Program
DX: M85.88 Other specified disorders of bone density and structure, other site (principal); Z13.820 Encounter for screening for osteoporosis
CPT/HCPCS: 77080

== ENCOUNTER 2022-05-28 02:40 | Outpatient (RCR) | payer MEDICARE, SELFPAY ==
[2022-05-10 00:18] VITALS: BP 155/65; PULSE 53; RESP 18; TEMP 36.8
[2022-05-14] VITALS (7 sets, daily range): BP systolic 112–134; BP diastolic 63–78; PULSE 58–72; RESP 12–20; TEMP 36.3–36.7; O2SAT 98–100
[2022-05-14 07:26] LABS: Abs Immature Grans 0.01 10^3/uL (0.0-0.06); Absolute Basophil Count 0.03 10^3/uL (0.0-0.2); Absolute Eosinophil Count 0.11 10^3/uL (0.0-0.7); Absolute Monocyte Count 0.19 10^3/uL (0.1-0.8); Basophils % 1.2; Eosinophils % 4.3; HCT 37.4 % (40.0-50.0); HGB 11.9 g/dL (13.5-17.5); Immature Grans % 0.4; Lymphocytes % 11.8; MCH 32.7 pg (27.0-33.0); MCHC 31.8 % (32.0-36.0); MCV 103 fL (80-95); MPV 12.8 fL (8.0-11.0); Monocytes % 7.5; Neutrophils % 74.8; RBC 3.64 10^6/uL (4.36-5.78); RDW 15.1 % (11.8-14.1); RDW-SD 58.1 fL; WBC 2.54 10^3/uL (4.4-10.8)
[2022-05-14] MEDS: methylPREDNISolone SUCC 500 MG in Normal Saline 100 ML 216 MG IVPB (07:41)
[2022-05-14] MEDS: Normal Saline Flush 10 ML SYR IVP (07:41)
[2022-05-14 07:42] LABS: Anion Gap 7.9 mmol/L (3-11); BUN 62 mg/dL (7-18); C-Reactive Protein 0.15 mg/dL (0.0-0.3); CO2 28.1 mmol/L (21.0-32.0); CREATININE 2.3 mg/dL (0.70-1.30); Calcium 8.7 mg/dL (8.5-10.1); Chloride 105 mmol/L (98-107); Creatine Kinase 66 U/L (39-308); Estimated GFR 30.93 (mL/min/1.73m2); Glucose 52 mg/dL (74-106); Potassium 4.2 mmol/L (3.5-5.1); Sodium 141 mmol/L (136-145)
[2022-05-14 07:53] LABS: Platelet Count 40 10^3/uL (130-400)
[2022-05-14] MEDS: IMMUNE GLOBULIN 10 GM/100 ML BTL IVPB (08:11)
[2022-05-14] MEDS: IMMUNE GLOBULIN 40 GM/400 ML BTL IVPB ×3 (08:54→10:54)
[2022-05-15] MEDS: Normal Saline Flush 10 ML SYR IVP (07:09)
[2022-05-15 07:30] VITALS: BP 132/59; PULSE 68; RESP 18; TEMP 36; O2SAT 100
[2022-05-15] MEDS: IMMUNE GLOBULIN 10 GM/100 ML BTL IVPB (07:40)
[2022-05-15 07:55] VITALS: BP 116/69; PULSE 65; RESP 18; TEMP 36.4; O2SAT 99
[2022-05-15 08:10] VITALS: BP 134/71; PULSE 65; RESP 18; TEMP 36.6; O2SAT 100
[2022-05-15] MEDS: IMMUNE GLOBULIN 40 GM/400 ML BTL IVPB ×2 (08:29→10:31)
[2022-05-15 08:40] VITALS: BP 121/64; PULSE 64; RESP 18; TEMP 36.4; O2SAT 100
[2022-05-15 09:10] VITALS: BP 133/76; PULSE 67; RESP 18; TEMP 36.5; O2SAT 100
[2022-05-15] MEDS: IMMUNE GLOBULIN 40 GM/400 ML BTL 4.92 GM IVPB (09:37)
[2022-05-15 09:45] VITALS: BP 120/70; PULSE 62; RESP 17; TEMP 36.5; O2SAT 100
[2022-05-28] MEDS: Normal Saline Flush 10 ML SYR IVP (07:26)
[2022-05-28 07:41] LABS: Abs Immature Grans 0.01 10^3/uL (0.0-0.06); Absolute Basophil Count 0.06 10^3/uL (0.0-0.2); Absolute Eosinophil Count 0.06 10^3/uL (0.0-0.7); Absolute Lymphocyte Count 0.62 10^3/uL (1.2-3.4); Absolute Monocyte Count 0.44 10^3/uL (0.1-0.8); Absolute Neutrophil Count 3.09 10^3/uL (1.2-6.7); Basophils % 1.4; Eosinophils % 1.4; HCT 36.7 % (40.0-50.0); HGB 11.5 g/dL (13.5-17.5); Immature Grans % 0.2; Lymphocytes % 14.5; MCH 32.1 pg (27.0-33.0); MCHC 31.3 % (32.0-36.0); MCV 103 fL (80-95); MPV 12.2 fL (8.0-11.0); Monocytes % 10.3; Neutrophils % 72.2; RBC 3.58 10^6/uL (4.36-5.78); RDW-SD 56.8 fL; WBC 4.28 10^3/uL (4.4-10.8)
[2022-05-28 08:02] LABS: Platelet Count 63 10^3/uL (130-400)
[2022-05-28 08:13] LABS: CREATININE 1.7 mg/dL (0.70-1.30); Estimated GFR 44.46 (mL/min/1.73m2)
[2022-05-28 08:16] LABS: Iron 67 ug/dL (65-175); Total Iron Binding Capacity 273 ug/dL (250-450); Transferrin Sat 25 % (20-55)
[2022-05-28] MEDS: IRON SUCROSE COMPLEX 300 MG in Normal Saline 250 ML 176.667 MG IVPB (08:40)
== END 2022-06-09 23:59 | disposition home or self-care (01) ==
LOC: INF 02:40
PROVIDERS: Nurse Practitioner Adult Health; PCP Family Medicine; Visit Provider Family Medicine
DX: Z45.2 Encounter for adjustment and management of vascular access device; E83.42 Hypomagnesemia; N28.9 Disorder of kidney and ureter, unspecified; R80.0 Isolated proteinuria; I10 Essential (primary) hypertension; D50.9 Iron deficiency anemia, unspecified; D63.1 Anemia in chronic kidney disease; Z79.52 Long term (current) use of systemic steroids; D61.818 Other pancytopenia; M60.9 Myositis, unspecified
CPT/HCPCS: 36591; 80048; 82550; 96365; 96366; 96372; 82565; 83540; 83550; 85025; 86140; J0881; J1459; J1756; J2930

== ENCOUNTER 2022-06-20 20:51 | Observation (INO) | payer MEDICARE, SELFPAY ==
[2022-06-20] VITALS (26 sets, daily range): BP systolic 100–133; BP diastolic 54–78; PULSE 79–143; RESP 8–20; TEMP 37.3; O2SAT 96–100
--- NOTE | 2022-06-20 21:15 | RT.EKG_ITS ---
APPROVED REPORT Exam: Resting ECG Reason for Exam: shortness of breath Patient Location: E HR:80 bpm ECG Measurements Heart Rate 80 AXIS NC 153 P 39 QRSd 117 QRS -12 QT 392 T 196 QTc 451 Conclusion Sinus rhythm...normal P axis, V-rate 60- 99 Incomplete left bundle branch block...QRSd>110mS, terminal axis(-90,-1) LVH with secondary repolarization abnormality...multi-LVH criteria, abnrm ST-T Physician: anterior elevation in V1 and V2 are old and unchanged, but new depression and t wave inver thea is noted in V4-6. Does not meet stemi criterion
[2022-06-20 22:05] LABS: Lactate 1.6 mmol/L (0.6-1.4)
[2022-06-20 22:07] LABS: COVID-19 PCR Negative (Negative); Influenza A PCR Negative (Negative); Influenza B PCR Negative (Negative); RSV PCR Negative (Negative)
[2022-06-20 22:08] LABS: Abs Immature Grans 0.03 10^3/uL (0.0-0.06); Absolute Basophil Count 0.03 10^3/uL (0.0-0.2); Absolute Eosinophil Count 0.03 10^3/uL (0.0-0.7); Absolute Lymphocyte Count 0.18 10^3/uL (1.2-3.4); Absolute Monocyte Count 0.64 10^3/uL (0.1-0.8); Absolute Neutrophil Count 6.84 10^3/uL (1.2-6.7); Basophils % 0.4; Eosinophils % 0.4; HCT 31.4 % (40.0-50.0); HGB 10.2 g/dL (13.5-17.5); Immature Grans % 0.4; Lymphocytes % 2.3; MCH 32.3 pg (27.0-33.0); MCHC 32.5 % (32.0-36.0); MCV 99 fL (80-95); MPV 11.6 fL (8.0-11.0); Monocytes % 8.3; Neutrophils % 88.2; RBC 3.16 10^6/uL (4.36-5.78); RDW 16.2 % (11.8-14.1); RDW-SD 58.6 fL; WBC 7.75 10^3/uL (4.4-10.8)
[2022-06-20] MEDS: methylPREDNISolone SUCC 125 MG VIAL 80 MG IVP (22:11)
[2022-06-20] MEDS: Albuterol/Ipratropium 3 ML UPD VIAL UPD (22:12)
[2022-06-20 22:16] LABS: Source Nasopharynx
[2022-06-20] MEDS: Lactated Ringers 1,000 ML 1000 ML IV (22:19)
[2022-06-20 22:34] LABS: ALT 45 U/L (16-63); AST 51 U/L (15-37); Albumin 2.4 g/dL (3.4-5.0); Alkaline Phosphatase 161 U/L (46-116); Anion Gap 7.1 mmol/L (3-11); BUN 73 mg/dL (7-18); Bilirubin, Total 0.9 mg/dL (0.2-1.0); CO2 23.9 mmol/L (21.0-32.0); Calcium 8.5 mg/dL (8.5-10.1); Chloride 103 mmol/L (98-107); Estimated GFR 36.58 (mL/min/1.73m2); Glucose 161 mg/dL (74-106); NT-proBNP 10645 pg/mL (<300); Potassium 3.8 mmol/L (3.5-5.1); Sodium 134 mmol/L (136-145); Total Protein 8.3 g/dL (6.4-8.2)
[2022-06-20 22:38] LABS: Troponin I 432 ng/L (<or=60)
[2022-06-20 22:45] LABS: Platelet Count 62 10^3/uL (130-400)
--- NOTE | 2022-06-20 22:45 | DI.CT_ITS ---
Exam(s) CT CHEST PE CTA EXAM: CT CHEST PE CTA CLINICAL HISTORY: elevated troponin, elevated bnp, cough. TECHNIQUE: Imaging Protocol: Axial CT angiography was performed with multi-slice acquisition and mu lti-planar and/or 3D reconstructions. CONTRAST MATERIAL: Intravenous: Omnipaque 350 contrast volume:100 mL COMPARISON: CT CHEST WITH CONTRAST from 10/28/2013 FINDINGS: Tracheobronchial tree: Patent where visualized. Pulmonary parenchyma: No consolidation or dominant measurable mass. No architectural distortion. Pulmonary Arteries: No evidence of filling defect to suggest pulmonary emboli. Mediastinum and Tiffany: No dominant adenopathy or fluid collection. The esophagus is unremarkable. Visualized thyroid gland: There is a 1.4 cm hypodense nodule in the left lobe of the thyroid gland. Pleura: No effusion or pneumothorax. Heart: The heart is not dilated. Mild coronary artery calcification is present. No pericardial effus ion. Aorta: Thoracic aorta non-dilated. No evidence of dissection. Atherosclerosis is present. Upper abdomen: Gallstones are present. There is a cyst in the superior pole of the right kidney. T he spleen appears enlarged. There is a nodular contour of the liver suggesting hepatic cirrhosis. Tubes, Catheters, and Lines: There is a right-sided central venous catheter in place. Soft tissues: Unremarkable. Bones: Within normal limits for the patient's age. IMPRESSION: 1. No evidence of pulmonary embolism, thoracic aortic dissection or aneurysm. 2. 1.4 cm left thyroid nodule. Nonemergent thyroid ultrasound is recommended for further evaluation. 3. Cholelithiasis. 4. Findings suggestive of hepatic cirrhosis with splenomegaly. RADIATION DOSE DELIVERED: 745.2mGy.cm Total DLP DATA REPOSITORY: All CT scans at this facility are submitted to the National Radiology Data Registry (NRDR) Dose Index Registry (DIR) with the [employer] (ACR). RADIATION OPTIMIZATION: All CT scans at this facility use at least one of these dose optimization te chniques: automated exposure control; mA and/or kV adjustment per patient size (includes targeted exa ms where dose is matched to clinical indication); or iterative reconstruction.
--- NOTE | 2022-06-20 23:16 | W.ED.GENAD ---
Discharge Plan Disposition Patient Disposition: Admit to [facility] Condition: Serious Discharge Details Clinical Impression: Fever of unknown origin, Elevated troponin, Thrombocytopenia, Mass of thyroid gland Admit Date/Time: 06/21/22 01:21 Admit Provider: Richard Rodriguez Attending Provider: Richard Rodriguez Primary Care Provider: Jazmine Baer V ED Provider: Edson Molina Discharge Data Discharge Date/Time-TO BE ENTERED AT DEPARTURE: 06/21/22 02:41 Medical Decision Making <LUDA Potter - Last Filed: 06/21/22 12:01> This chronically unwell 62-year-old gentleman presents with report of fever, weakness, cough Symptoms have been present since of last week He adamantly denies any chest pain or significant shortness of breath ordered solumedrol and albuterol initially for respiratory complaints with 500 cc saline Secondary to comorbidities, age, and recent immunoglobulin infusion, did order troponin, diagnostic labs, DuoNeb, fluid, initially patient's blood pressure was 100/60, responded to IV fluids, given 500 cc After reviewing prior echocardiogram with ejection fraction of 40%, this was discontinued BNP was notably elevated from 7000- 10,000 and troponin of 432 creatinine appears baseline with levels ranging from 1.8-2 , He does have a prior elevated troponin in 2020, however we have no tests prior to that for comparison Pending CT interpretation by radiology at this time, remains chest pain-free Will need repeat troponin and EKG at 0055 care will be transitioned to Dr Molina pending cta interpretation, repeat troponin and EKG and likely admission vs transfer <Edson Molina DO - Last Filed: 06/21/22 02:06> This chronically unwell 62-year-old gentleman presents with report of fever, weakness, cough Symptoms have been present since of last week He adamantly denies any chest pain or significant shortness of breath ordered solumedrol and albuterol initially for respiratory complaints with 500 cc saline Secondary to comorbidities, age, and recent immunoglobulin infusion, did order troponin, diagnostic labs, DuoNeb, fluid, initially patient's blood pressure was 100/60, responded to IV fluids, given 500 cc After reviewing prior echocardiogram with ejection fraction of 40%, this was discontinued BNP was notably elevated from 7000- 10,000 and troponin of 432 creatinine appears baseline with levels ranging from 1.8-2 , He does have a prior elevated troponin in 2020, however we have no tests prior to that for comparison Pending CT interpretation by radiology at this time, remains chest pain-free Will need repeat troponin and EKG at 0055 care will be transitioned to Dr Molina pending cta interpretation, repeat troponin and EKG and likely admission vs transfer Dr. Molina's documentation 2 AM Patient was received in signout. Please refer to Ellen Clement's HPI, physical exam, assessment and plan. CT scan results have returned, and shows no evidence of pulmonary embolism. No evidence of pneumonia. Cholelithiasis is noted but no cholecystitis. Thyroid mass is noted. No elevated white count. The patient did have a temperature of 103 at home earlier today though. He was given 500 cc of normal saline by the previous provider and his blood pressure is stable. Heart rate stable. Lactate slightly elevated, troponin is elevated however it appears to be at his baseline levels. proBNP is also elevated at 10,000 which is slightly higher than normal. EKG shows some mild depressions and elevations but does not meet STEMI criteria. Patient otherwise remained stable. COVID/flu/RSV are negative. Discussed the case with cardiology Dr. Aceves, he does not recommend heparinization at this time as the troponin appears to be stable, and with his thrombocytopenia this would not be beneficial to the patient's other comorbidities. Recommends trending of troponins and echo for further assessment. Myself, I am uncertain as to the exact etiology of where his fever and symptoms have come from. No evidence of aspiration pneumonia. No major viral etiology is currently present. He does have a port and this could be an infected site. The ulcer on his great toe demonstrates no evidence of significant cellulitis at this time. No other lesions or other sources of infection that I can see clinically. He has a minimally elevated WBC count in his urine, and trace leuk esterase but negative nitrites. Symptoms appear less consistent for significant UTI causing the fever. Differential still remains at bacteremia secondary to his immunocompromise state. We have started Zosyn, vancomycin, and doxycycline for broad coverage of potential bacteremia. No clinical evidence of meningitis. Discussed the case with the hospitalist Dr. Aminata Encinas, she agrees with the assessment and plan. I have extensively reviewed the treatment plan with the patient. I have addressed all patient concerns at this time. I have also discussed the plan with the admitting physician and they agree with the current assessment and plan and have agreed to assume responsibility for the patient. All parties demonstrate verbal understanding and agreement with our assessment and plan at this time. The documentation in this chart was dictated using [employer] dictation software. Please excuse any dictation errors. FINDINGS: Tubes, catheters and devices: Right internal jugular Port-A-Cath catheter present tip lies at the level of the cavoatrial junction. Pulmonary arteries: The pulmonary arteries are normal in caliber. No evidence of acute pulmonary embolism. Aorta: The aorta demonstrates mild atherosclerotic calcification. The aorta is otherwise normal without evidence of aneurysmal dilatation, or dissection. Other arteries: The arterial peripheral vasculature at the great vessels demonstrates diffuse mild to moderate atherosclerotic calcification. Thyroid: 16 mm low-attenuation mass present within the left thyroid lobe. Consider ultrasound for further evaluation. Lungs: There is mild heterogeneous attenuation of the pulmonary parenchyma, consistent with mild air trapping from underlying small airways disease. There is no evidence of focal pulmonary consolidation. No evidence of pulmonary parenchymal inflammatory changes. There is no evidence of pulmonary masses. Pleural spaces: There is no evidence of pneumothorax. There are no pleural effusions present. Heart: The cardiac structures are normal. The right ventricular to left ventricular ratio is normal measuring approximately 0.5. Lymph nodes: There is no evidence of lymphadenopathy. Liver: There is a finely nodular contour to the liver and hypertrophy of the caudate lobe, consistent with cirrhosis. Gallbladder and bile ducts: There are calcified gallstones present within the gallbladder lumen. There is no wall thickening or pericholecystic fluid. Findings consistant with cholelitiasis without cholecystitis. Spleen: The spleen is enlarged. Bones/joints: Moderate degenerative changes of the thoracic spine. The spine, sternum, ribs, and pectoral girdles otherwise show no evidence of acute abnormality. Soft tissues: There are no soft tissue masses or fluid collections. Other findings: The mediastinal structures are normal. IMPRESSION: 1. There is mild heterogeneous attenuation of the pulmonary parenchyma, consistent with mild air trapping from underlying small airways disease. 2. No evidence of acute pulmonary embolism. 3. 16 mm low-attenuation mass present within the left thyroid lobe. Consider ultrasound for further evaluation. 4. Findings consistant with cholelitiasis without cholecystitis. 5. Cirrhosis with splenomegaly Thank you for allowing us to participate in the care of your patient. Dictated and Authenticated by: Bucky Weinstein MD 06/20/2022 11:47 PM Eastern Time ([place] & [place]) HPI <LUDA Potter - Last Filed: 06/21/22 12:01> General Date/Time Provider Initiated Documentation: 06/20/22 20:56. HPI Narrative: This 62-year-old gentleman with history of chronic renal failure, hypertension, aortic stenosis, diabetes, cirrhosis, subclavian vein thrombosis, thrombocytopenia, anemia, systolic heart murmur, chronic dyspnea on exertion, cardiomyopathy presents with report of cough and shortness of breath with weakness which started approximately a week ago with cough alone, worse today per patient. Symptoms started on after having a bone marrow biopsy at [facility] for thrombocytopenia. He denies significant shortness of breath. He came in predominantly tonight secondary to weakness and posttussive emesis. He had a temp of 103 earlier today for which he took Tylenol for. He denies any known sick contacts. He states his blood sugars have been stable for him. His last immunoglobulin infusion was reportedly 2 days ago. He adamantly denies any chest pain or new calf pain or swelling, he states that the bone marrow biopsy was uneventful. Related Data Home Medications Medication Instructions Recorded Confirmed Gamaguard Ivig MONTHLY FOR 2 DAYS 09/18/12 05/31/22 multivitamin (Daily Multi-Vitamin 1 tab PO DAILY 11/23/13 06/20/22 tablet) allopurinol 100 mg tablet 400 mg PO DAILY 04/10/21 06/20/22 aspirin 81 mg tablet,delayed 81 mg PO DAILY #100 tabs 04/12/21 06/20/22 release canagliflozin 100 mg tablet 100 mg PO DAILY #30 tabs 04/12/21 06/20/22 insulin glargine 100 unit/mL (3 50 unit (0.5 mL) SQ HS #0 mL 04/12/21 06/20/22 mL) subcutaneous pen (Lantus Solostar U-100 Insulin) magnesium oxide 400 mg (241.3 mg 400 mg PO BID #60 tabs 04/12/21 06/20/22 magnesium) tablet nitroglycerin 0.4 mg sublingual 0.4 mg sublingual Q5-15M PRN #30 04/12/21 06/20/22 tablet tabs darbepoetin matt in polysorbat 60 60 mcg IV Q2W PRN 04/20/21 06/20/22 mcg/mL in polysorbate injection (Aranesp) iron sucrose 200 mg iron/10 mL 300 mg IV .Q30 PRN 04/20/21 06/20/22 intravenous solution (Venofer) epoetin matt 20,000 unit/mL 20,000 unit subcut .every other 04/24/21 06/20/22 injection solution week insulin lispro 100 unit/mL 100 unit subcut AC 04/24/21 06/20/22 subcutaneous cartridge (Humalog U-100 Insulin) methylprednisolone sod suc(PF) 125 125 mg IM MONTHLY 04/24/21 06/20/22 mg/2 mL solution for injection (Solu-Medrol (PF)) ondansetron 4 mg disintegrating 4 mg PO BID PRN 04/24/21 06/20/22 tablet (Zofran ODT) carvedilol 12.5 mg tablet 12.5 mg PO BID #180 tabs 08/07/21 06/20/22 losartan 50 mg tablet 75 mg PO DAILY 04/11/22 06/20/22 furosemide 40 mg tablet 40 mg PO DAILY 06/20/22 06/20/22 Previous Rx's Medication Instructions Recorded aspirin 81 mg tablet,delayed 81 mg PO DAILY #100 tabs 04/12/21 release canagliflozin 100 mg tablet 100 mg PO DAILY #30 tabs 04/12/21 insulin glargine 100 unit/mL (3 50 unit (0.5 mL) SQ HS #0 mL 04/12/21 mL) subcutaneous pen (Lantus Solostar U-100 Insulin) magnesium oxide 400 mg (241.3 mg 400 mg PO BID #60 tabs 04/12/21 magnesium) tablet nitroglycerin 0.4 mg sublingual 0.4 mg sublingual Q5-15M PRN #30 04/12/21 tablet tabs carvedilol 12.5 mg tablet 12.5 mg PO BID #180 tabs 08/07/21 Allergies Allergy/AdvReac Type Severity Reaction Status Date / Time methotrexate Allergy Skin Rash Verified 06/20/22 23:23 morphine Allergy Itching Verified 06/20/22 23:23 [id number]-[id number]-HbF Reductase Allergy NECROTIZING Verified 06/20/22 23:23 Inhibitor MYOPATHY [Vfxmods-Pvt-Mvh Reductase Inhibitor] General Stated Complaint: Fever AURA: 3 Review of Systems <LUDA Potter - Last Filed: 06/21/22 12:01> All systems reviewed & are unremarkable except as noted in HPI and below PFSH <ULDA Potter - Last Filed: 06/21/22 12:01> All Active Problems (Updated 06/21/22 @ 02:03 by Aminata Sewell MD) Thyroid nodule (Acute) Fever (Acute) HFrEF (heart failure with reduced ejection fraction) (Acute) Thrombocytopenia (Chronic) Acute on chronic renal insufficiency (Acute) Lower extremity cellulitis (Acute) Renal insufficiency (Chronic) Impacted cerumen of both ears (Acute) HTN (hypertension) (Chronic) Cirrhosis of liver (Chronic) Subclavian vein thrombosis (Acute) Myopathy (Acute) Barretts esophagus (Acute) Hearing deficit (Acute) Epistaxis (Acute) Chronic anemia (Acute) Edema (Acute) Heart murmur, systolic (Acute) CALDERON (dyspnea on exertion) (Acute) Diastolic dysfunction (Acute) Excess ear wax (Acute) Weakness of both legs (Acute) Nocturnal cough (Acute) Medication monitoring encounter (Acute) Skin cancer, basal cell (Acute) face Elevated troponin (Acute) Medical History Basal cell carcinoma, face Cardiomyopathy Chronic kidney disease Diabetes mellitus Duodenitis DVT (deep venous thrombosis) Essential hypertension Gout Hypercholesterolemia 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 Sister Diabetes PATERNAL UNCLE Personal history of malignant neoplasm STOMACH Social History Smoking/Tobacco Use Status: Never Smoking risk assessment performed?: Yes Alcohol Intake: never Drug use: Never Substance use type: does not use Do you feel safe at home: Yes Do you feel safe in your relationship?: Yes Exam <LUDA Potter - Last Filed: 06/21/22 12:01> Const General: cooperative and comfortable Other: Chronically ill-appearing HENMT Head: normal to inspection Mouth: oral mucosae normal Resp Effort & Inspection: normal respiratory effort Other: Diminished lung sounds without wheezes Cardio Rate: regular rate Rhythm: regular rhythm Other: murmur GI Inspection: normal to inspection Skin Other: small ulcer stage 2 right great toe, no drainage or surroudning erythema Neuro General: patient alert and patient oriented x3 Extrem Other: 2+ edema bilateral lower extremities Course <LUDA Potter - Last Filed: 06/21/22 12:01> Vital Signs Vital signs: Vital Signs Temperature 37.3 C 06/20/22 20:57 Pulse 88 06/20/22 20:57 Respiratory Rate 20 06/20/22 20:57 Blood Pressure 100/60 06/20/22 20:57 Pulse Oximetry 97 06/20/22 20:57 Temperature 37.3 C 06/20/22 20:57 Temperature Source Oral 06/20/22 20:57 Pulse 80 06/20/22 22:16 Respiratory Rate 20 06/20/22 20:57 Respiratory Effort 06/20/22 21:12 Blood Pressure 125/61 06/20/22 22:16 Blood Pressure Mean 74 06/20/22 22:16 Blood Pressure Position Supine 06/20/22 20:57 Pulse Oximetry 100 06/20/22 22:30 Oxygen Delivery Method Room Air 06/20/22 20:57 Oxygen Flow Rate 0 06/20/22 20:57 Comment 06/20/22 20:57 Lab/Test Results Lab/Test Results: 06/20/22 22:15 Blood Blood Culture - Pending 06/20/22 21:55 Blood Blood Culture - Pending Laboratory Tests Range/Units 06/20/22 06/20/22 06/20/22 21:28 21:55 21:55 WBC (4.4-10.8) 10^3/uL RBC (4.36-5.78) 10^6/uL Hgb (13.5-17.5) g/dL Hct (40.0-50.0) % MCV (80-95) fL MCH (27.0-33.0) pg MCHC (32.0-36.0) % RDW (11.8-14.1) % Plt Count (130-400) 10^3/uL MPV (8.0-11.0) fL Immature Gran % Neutrophils % Lymphocytes % Monocytes % Eosinophils % Basophils % Nucleated RBC % (0.0-0.3) % Absolute Neutrophils (1.2-6.7) 10^3/uL Absolute Lymphocytes (1.2-3.4) 10^3/uL Absolute Monocytes (0.1-0.8) 10^3/uL Absolute Eosinophils (0.0-0.7) 10^3/uL Absolute Basophils (0.0-0.2) 10^3/uL VBG Lactate (0.6-1.4) mmol/L 1.6 H Sodium (136-145) mmol/L 134 L Potassium (3.5-5.1) mmol/L 3.8 Chloride (98-107) mmol/L 103 Carbon Dioxide (21.0-32.0) mmol/L 23.9 Anion Gap (3-11) mmol/L 7.1 BUN (7-18) mg/dL 73 H Creatinine (0.70-1.30) mg/dL 2.0 H Est GFR (CKD-EPI 2020) (mL/min/1.73m2) 36.58 Glucose (74-106) mg/dL 161 H Calcium (8.5-10.1) mg/dL 8.5 Magnesium (1.8-2.4) mg/dL Total Bilirubin (0.2-1.0) mg/dL 0.9 AST (15-37) U/L 51 H ALT (16-63) U/L 45 Alkaline Phosphatase (46-116) U/L 161 H Troponin I (<or=60) ng/L 432 H* NT-Pro-B Natriuret Pep (<300) pg/mL 91148 H Total Protein (6.4-8.2) g/dL 8.3 H Albumin (3.4-5.0) g/dL 2.4 L COVID-19 Source Nasopharynx SARS-CoV-2 (PCR) (Negative) Negative Influenza Type A (PCR) (Negative) Negative Influenza Type B (PCR) (Negative) Negative RSV (PCR) (Negative) Negative Range/Units 06/20/22 06/20/22 21:55 21:55 WBC (4.4-10.8) 10^3/uL 7.75 RBC (4.36-5.78) 10^6/uL 3.16 L Hgb (13.5-17.5) g/dL 10.2 L Hct (40.0-50.0) % 31.4 L MCV (80-95) fL 99 H MCH (27.0-33.0) pg 32.3 MCHC (32.0-36.0) % 32.5 RDW (11.8-14.1) % 16.2 H Plt Count (130-400) 10^3/uL 62 L MPV (8.0-11.0) fL 11.6 H Immature Gran % 0.4 Neutrophils % 88.2 Lymphocytes % 2.3 Monocytes % 8.3 Eosinophils % 0.4 Basophils % 0.4 Nucleated RBC % (0.0-0.3) % 0.0 Absolute Neutrophils (1.2-6.7) 10^3/uL 6.84 H Absolute Lymphocytes (1.2-3.4) 10^3/uL 0.18 L Absolute Monocytes (0.1-0.8) 10^3/uL 0.64 Absolute Eosinophils (0.0-0.7) 10^3/uL 0.03 Absolute Basophils (0.0-0.2) 10^3/uL 0.03 VBG Lactate (0.6-1.4) mmol/L Sodium (136-145) mmol/L Potassium (3.5-5.1) mmol/L Chloride (98-107) mmol/L Carbon Dioxide (21.0-32.0) mmol/L Anion Gap (3-11) mmol/L BUN (7-18) mg/dL Creatinine (0.70-1.30) mg/dL Est GFR (CKD-EPI 2020) (mL/min/1.73m2) Glucose (74-106) mg/dL Calcium (8.5-10.1) mg/dL Magnesium (1.8-2.4) mg/dL 2.0 Total Bilirubin (0.2-1.0) mg/dL AST (15-37) U/L ALT (16-63) U/L Alkaline Phosphatase (46-116) U/L Troponin I (<or=60) ng/L NT-Pro-B Natriuret Pep (<300) pg/mL Total Protein (6.4-8.2) g/dL Albumin (3.4-5.0) g/dL COVID-19 Source SARS-CoV-2 (PCR) (Negative) Influenza Type A (PCR) (Negative) Influenza Type B (PCR) (Negative) RSV (PCR) (Negative) Sign Out <LUDA Potter - Last Filed: 06/21/22 12:01> Sign Out Data: Sign Out Comment: pending CTA radiology interpretation and repeat troponin and EKG +troponin, elevated BNP, soft BP in need of reassessment and disposition of likely admission vs transfer Last updated by Ellen Tello PA at 06/20/22 23:39
[2022-06-20] MEDS: Omnipaque 350 MG/ML 100 ML BTL IJ (23:26)
[2022-06-20] MEDS: Normal Saline - Diluent 50 ML VIAL IJ (23:27)
--- NOTE | 2022-06-20 23:48 | DI.VRAD_ITS ---
PROCEDURE INFORMATION: Exam: CTA Chest With Contrast Exam date and time: 06/20/2022 11:15 PM Age: 62 years old Clinical indication: Cough and other: Elevated trop, elevated bnp; Patient HX: Port; Additional info: Elevated trop, elevated bnp, cough TECHNIQUE: Imaging protocol: Computed tomographic angiography of the chest with contrast. 3D rendering (Not supervised by radiologist): MIP and/or 3D reconstructed images were created by the technologist. Radiation optimization: All CT scans at this facility use at least one of these dose optimization techniques: automated exposure control; mA and/or kV adjustment per patient size (includes targeted exams where dose is matched to clinical indication); or iterative reconstruction. Contrast material: OMNI 350; Contrast volume: 100 ml; Contrast route: INTRAVENOUS (IV); COMPARISON: CR XR CHEST 2V PA LATERAL 04/11/2022 1:15 PM FINDINGS: Tubes, catheters and devices: Right internal jugular Port-A-Cath catheter present tip lies at the level of the cavoatrial junction. Pulmonary arteries: The pulmonary arteries are normal in caliber. No evidence of acute pulmonary embolism. Aorta: The aorta demonstrates mild atherosclerotic calcification. The aorta is otherwise normal without evidence of aneurysmal dilatation, or dissection. Other arteries: The arterial peripheral vasculature at the great vessels demonstrates diffuse mild to moderate atherosclerotic calcification. Thyroid: 16 mm low-attenuation mass present within the left thyroid lobe. Consider ultrasound for further evaluation. Lungs: There is mild heterogeneous attenuation of the pulmonary parenchyma, consistent with mild air trapping from underlying small airways disease. There is no evidence of focal pulmonary consolidation. No evidence of pulmonary parenchymal inflammatory changes. There is no evidence of pulmonary masses. Pleural spaces: There is no evidence of pneumothorax. There are no pleural effusions present. Heart: The cardiac structures are normal. The right ventricular to left ventricular ratio is normal measuring approximately 0.5. Lymph nodes: There is no evidence of lymphadenopathy. Liver: There is a finely nodular contour to the liver and hypertrophy of the caudate lobe, consistent with cirrhosis. Gallbladder and bile ducts: There are calcified gallstones present within the gallbladder lumen. There is no wall thickening or pericholecystic fluid. Findings consistant with cholelitiasis without cholecystitis. Spleen: The spleen is enlarged. Bones/joints: Moderate degenerative changes of the thoracic spine. The spine, sternum, ribs, and pectoral girdles otherwise show no evidence of acute abnormality. Soft tissues: There are no soft tissue masses or fluid collections. Other findings: The mediastinal structures are normal. IMPRESSION: 1. There is mild heterogeneous attenuation of the pulmonary parenchyma, consistent with mild air trapping from underlying small airways disease. 2. No evidence of acute pulmonary embolism. 3. 16 mm low-attenuation mass present within the left thyroid lobe. Consider ultrasound for further evaluation. 4. Findings consistant with cholelitiasis without cholecystitis. 5. Cirrhosis with splenomegaly Dictated and Authenticated by: Bucky Weinstein MD. Ordering:TESSIE Hughes MD
[2022-06-20 23:49] LABS: Bilirubin Negative (Negative); Blood Trace-intact (Negative); Clarity Clear (Clear); Glucose 250 mg/dL (Negative); Ketones Negative (Negative); Leukocyte Esterase Trace (Negative); Nitrite Negative (Negative); Urobilinogen 0.2 EU/dL (Up TO 0.2); pH 5.5 (5-8)
[2022-06-20 23:55] LABS: Bacteria Few HPF (Negative); C & S Indicated? Yes; Crystals Negative HPF (Negative); Epithelial Cells Few HPF (Negative); Mucus Negative (Negative)
[2022-06-21] VITALS (38 sets, daily range): BP systolic 81–160; BP diastolic 41–82; PULSE 67–88; RESP 16–24; TEMP 35.8–38.2; O2SAT 95–100
--- NOTE | 2022-06-21 | DI.US_ITS ---
APPROVED REPORT EXAM: Comprehensive 2D, Doppler, and color-flow Echocardiogram Patient Location: In-Patient Room/Bed: [address] [employer] [employer] [employer] Rep[employer]r: Kerry Carranza RDCS (AE) Indications: Elevated troponin Other Information Study Quality: Fair. Technically limited study due to body habitus. Conclusion Left ventricle is moderately dilated. Wall thickness is normal. Estimated ejection fraction is 35% with global hypokinesis Right ventricle is not well visualized Left atrium is mildly dilated. Right atrial size is normal Aortic valve is calcified. There is mild aortic stenosis. Peak gradient is 28, mean 17 mmHg. Calcu lated aortic valve area is 1.32 cm??. There is trace aortic regurgitation Mild mitral annular calcification. Trace to mild mitral regurgitation Normal tricuspid valve with trace to mild regurgitation. Estimated right ventricular systolic pressu re is 19 mmHg Mildly dilated ascending aorta measuring 3.6 cm Wall motion Left Ventricle Left ventricle is moderately dilated. Left ventricular systolic function is moderately decreased. Th ere is normal left ventricular wall thickness. There is global hypokinesis of the left ventricle. The re is no ventricular septal defect visualized. LVEF is 35%. Right Ventricle Right ventricle is not well visualized. Right ventricular systolic function could not be assessed. Th e RVSP is 18.9_ mmHg. Atria Left atrium is mildly dilated. The right atrium size is normal. The interatrial septum is intact with no evidence for an atrial septal defect. Aortic Valve Aortic valve is calcified. Number of aortic valve leaflets could not be assessed. Mild aortic stenosi s. Peak aortic valve gradient is 28.1mmHg. Highest mean aortic valve gradient is 17.3mmHg. Calculated LILIA by the continuity equation is 1.32_cm2. Trace aortic regurgitation. Mitral Valve Mild mitral annular calcification. Mitral valve leaflets are mildly thickened. No evidence of mitral valve stenosis. Trace to mild mitral regurgitation. Tricuspid Valve The tricuspid valve is normal in structure. There is no tricuspid valve stenosis. Trace to mild tricu spid regurgitation. Pulmonic Valve The pulmonary valve is normal in structure. There is no pulmonic valvular stenosis. Trace pulmonic re gurgitation. Great Vessels The aortic root is normal in size. The ascending aorta is mildly dilated. Aortic arch is normal in ca liber. IVC is normal in size and collapses >50% with inspiration. Pericardium There is no pericardial effusion. 2D Dimensions IVSD d PLAX 0.96 cm M: 0.6-1.2 LV Vol A2C d MOD 199.0 mL LVPW d PLAX 1.01 cm M: 0.6 - 1.2 LV Vol A4C d MOD 207.3 mL LVID d PLAX 6.75 cm M: 4.2 - 5.8 LA vol/ BSA A2C s A-L 24.2 mL/m2 LVDs 5.75 cm M: 2.5 - 4.0 LA vol/ BSA A4C s A-L 30.7 mL/m2 Ao Root d 3.35 cm M: 3.1 - 3.7 LA Vol/ BSA Biplane s A-L 31.0 mL/m2 RA Area A4C 12.28 cm2 LA Area A4C s MOD 22.94 cm2 RA Vol/ BSA A4C s A-L 12.2 mL/m2 LA Area A2C s MOD 17.90 cm2 Ao Asc Diam d 3.60 cm M: 2.6 - 3.4 LV EF A4C MOD 35.6 % LV EF Teichholz 29.4 % LV EF A2C MOD 35.3 % LVEF (Acevedo's) 35.51 % M: 52 - 72 LV EF Biplane MOD 35.5 % LV Volume 146.46 mL M: 62 - 150 SV 72.88 mL LV Volume Index 62.58 mL/m2 M: 34 - 74 SV Index 31.15 mL/m2 LV Vol Biplane MOD 205.2 mL FS 14.15 % M-Mode TAPSE 1.91 cm (M/F) >1.7 LV Diastology MV E' medial 0.051 (>0.07 m/s) E/A Ratio 2.5 LV E/e MED 21.70 (<14) MV E Vmax 1.11 (0.4-1.3 m/s) MV E' lateral 0.094 (>0.1 m/s) MV A Vmax 0.45 (0.4-1.3 m/s) LV E/e LAT 11.80 (<14) MV E/A Ratio 2.28 MV E/E' medial 21.71 MV E/E' lateral 11.84 Aortic Valve LVOT Area 3.77 cm2 AoV Area Vmax 1.32 cm2 LVOT Vmax 0.93 m/s AoV Area/ BSA (Vmax) 0.57 cm2/m2 LVOT Mean Volodymyr. 0.60 m/s LILIA Mean Volodymyr. 1.13 cm2 LVOT Peak Grad 3.5 mmHg LILIA Mean Volodymyr. Index 0.48 cm2/m2 LVOT Mean Grad 1.7 mmHg LVOT VTI 0.258 m LVOT Diam s 2.15 cm AoV Vmax 2.65 m/s Velocity Ratio 0.35 AoV Mean Volodymyr. 2.00 m/s AoV Peak Grad 28.1 mmHg LVOT SV 97.09 mL AoV Mean Grad 17.3 mmHg AoV VTI 0.678 m AoV Area VTI 1.43 cm2 AoV Area/ BSA (VTI) 0.61 cm/m2 Mitral Valve MV DT 189 (160-240 msec) MR Vmax 5.30 m/s MV PHT 55 msec MR VTI 2.143 m MV Area PHT 4.02 cm2 MR Peak Grad 112.5 mmHg MV VTI 0.388 m MR Mean Grad 79.9 mmHg MV Area VTI 2.50 (4.0-6.0 cm2) Pulmonary Valve PV Vmax 1.01 (0.5-1.5 m/s) RVOT Peak Gr. 2.33 mmHg PV Peak Grad 4.1 mmHg RVOT Mean Gr. 1.20 mmHg PV Mean Grad 1.9 mmHg RVOT VTI 0.148 m PV VTI 0.190 m RVOT Vmax 0.76 m/s Tricuspid Valve TR Peak Grad 15.8 mmHg TR Vmax 1.99 m/s RA Pressure 3.00 mmHg RVSP (TR) 18.9 mmHg
[2022-06-21] MEDS: DOXYCYCLINE 100 MG in Normal Saline 100 ML IVPB ×2 (01:04→16:29)
--- NOTE | 2022-06-21 01:26 | W.PM.HP.N ---
Date of service: 06/21/22 Time of Service: : Assessment and Plan Assessment and plan (1) Thrombocytopenia: Status: Chronic Assessment and plan: Chronic and stable (2) Renal insufficiency: Status: Chronic Assessment and plan: Chronic and stable (3) HTN (hypertension): Status: Chronic Assessment and plan: Chronic, well controlled - continue losartan (4) Cirrhosis of liver: Status: Chronic Assessment and plan: HORTON cirrhosis (5) Myopathy: Status: Acute Assessment and plan: Autoimmune statin induced --> gets monthly IVIG and 500mg solumedrol - am cortisol (6) Barretts esophagus: Status: Acute (7) Chronic anemia: Status: Acute (8) Elevated troponin: Status: Acute Assessment and plan: Multiple encounters with elevated troponins. Non concerning EKG. [facility] [place] [place] cardiology do not think this is plaque rupture, but more likely demand from a potential infection. - trend troponins and EKG's - no heparin - continue home ASA (9) HFrEF (heart failure with reduced ejection fraction): Status: Acute Assessment and plan: EF 35% previously, [facility] [place] [place] cards recommends to diuresis. CLinically not overtly volume overloaded, however bnp is elevated. - echo - continue home Lasix - negative faily fluid balance (10) Diabetes mellitus: Assessment and plan: Home Lantus and SSI Qualifiers: Chronic kidney disease stage: stage 3 (moderate) Chronic kidney disease stage 3 subtype: stage 3b (GFR 30-44) Diabetes mellitus complication detail: with chronic kidney disease Diabetes mellitus complication status: with kidney complications Diabetes mellitus manager long term care insulin use: with manager long term care use Diabetes mellitus type: type 2 Qualified Code(s): E11.22 - Type 2 diabetes mellitus with diabetic chronic kidney disease; N18.32 - Chronic kidney disease, stage 3b; 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 Differentials certainly include infection, however given his history I do wonder about a potential inflammatory cause. - ceftriaxone and doxy (recent negative MRSA screen) - blood and urine cultures - chest CT without clear cause of fever - CRP, CK (12) Thyroid nodule: Status: Acute Assessment and plan: Not present in 2015, will need outpatient work up History of Present Illness Narrative: This is a medically complex 62 yo with a history of DM, HTN, CKD, several elevated troponin encounters, mild , cardiomyopathy (HFrEF 35%), autoimmune-statin induced myopathy, cirrhosis, Barretts esophagus and chronic anemia and thrombocytopenia who presents with significant fevers. Her was admitted here 04/13/22-04/19/22 for a RLE cellulitis. He presented to the ED with fevers, weakness and cough. He notes these symptoms for 1 week now. His work up in the ED was significant for stable anemia and thrombocytopenia, a normal lactate, stable Cr but with an elevated bnp from baseline and an elevated troponin. [facility] [place] [place] cardiology was consulted and did not feel strongly regarding urgent cath and did not recommend heparin given thrombocytopenia. [facility] [place] [place] cardiology recommended trending the troponin and EKG, getting and echo, diuresis and to continue home coreg if BP can toelrate. He also had a CTPE which did find a thyroid mass (16mm) that is not present on a prior CT from 2013 with no PE and normal appearing lung parenchyma. His last visit with rheumatology is from 06/19/22. He receives IVIG monthly as well as 500mg Solu medrol monthly. He did not have a documented fever at the time of this visit. He underwent bone marrow biopsy 9 days ago that was reportedly non eventful. His cough is not productive, he has some SOB with normoxia. There are no other clear sources of potential infection. Review of Systems All systems reviewed & are unremarkable except as noted in HPI and below PFSH All Active Problems (Updated 06/21/22 @ 02:03 by Aminata Sewell MD) Thyroid nodule (Acute) Fever (Acute) HFrEF (heart failure with reduced ejection fraction) (Acute) Thrombocytopenia (Chronic) Acute on chronic renal insufficiency (Acute) Lower extremity cellulitis (Acute) Renal insufficiency (Chronic) Impacted cerumen of both ears (Acute) HTN (hypertension) (Chronic) Cirrhosis of liver (Chronic) Subclavian vein thrombosis (Acute) Myopathy (Acute) Barretts esophagus (Acute) Hearing deficit (Acute) Epistaxis (Acute) Chronic anemia (Acute) Edema (Acute) Heart murmur, systolic (Acute) CALDERON (dyspnea on exertion) (Acute) Diastolic dysfunction (Acute) Excess ear wax (Acute) Weakness of both legs (Acute) Nocturnal cough (Acute) Medication monitoring encounter (Acute) Skin cancer, basal cell (Acute) face Elevated troponin (Acute) Medical History Basal cell carcinoma, face Cardiomyopathy Chronic kidney disease Diabetes mellitus Duodenitis DVT (deep venous thrombosis) Essential hypertension Gout Hypercholesterolemia 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 Sister Diabetes PATERNAL UNCLE Personal history of malignant neoplasm STOMACH Social History Smoking/Tobacco Use Status: Never Smoking risk assessment performed?: Yes Alcohol Intake: never Drug use: Never Substance use type: does not use Do you feel safe at home: Yes Do you feel safe in your relationship?: Yes Meds Allergies and Home Medications Allergies Allergy/AdvReac Type Severity Reaction Status Date / Time methotrexate Allergy Skin Rash Verified 06/20/22 23:23 morphine Allergy Itching Verified 06/20/22 23:23 Bsxteno-LZE-KxK Reductase Allergy NECROTIZING Verified 06/20/22 23:23 Inhibitor MYOPATHY [Ckunien-Hdq-Rjs Reductase Inhibitor] Home Medications Medication Instructions Recorded Confirmed Type Gamaguard Ivig MONTHLY FOR 2 DAYS 09/18/12 05/31/22 History multivitamin (Daily Multi-Vitamin 1 tab PO DAILY 11/23/14 06/20/22 History tablet) allopurinol 100 mg tablet 400 mg PO DAILY 04/10/21 06/20/22 History aspirin 81 mg tablet,delayed 81 mg PO DAILY #100 tabs 04/12/21 06/20/22 Rx release canagliflozin 100 mg tablet 100 mg PO DAILY #30 tabs 04/12/21 06/20/22 Rx insulin glargine 100 unit/mL (3 50 unit (0.5 mL) SQ HS #0 mL 04/12/21 06/20/22 Rx mL) subcutaneous pen (Lantus Solostar U-100 Insulin) magnesium oxide 400 mg (241.3 mg 400 mg PO BID #60 tabs 04/12/21 06/20/22 Rx magnesium) tablet nitroglycerin 0.4 mg sublingual 0.4 mg sublingual Q5-15M PRN #30 04/12/21 06/20/22 Rx tablet tabs darbepoetin matt in polysorbat 60 60 mcg IV Q2W PRN 04/20/21 06/20/22 History mcg/mL in polysorbate injection (Aranesp) iron sucrose 200 mg iron/10 mL 300 mg IV .Q30 PRN 04/20/21 06/20/22 History intravenous solution (Venofer) epoetin matt 20,000 unit/mL 20,000 unit subcut .every other 04/24/21 06/20/22 History injection solution week insulin lispro 100 unit/mL 100 unit subcut AC 04/24/21 06/20/22 History subcutaneous cartridge (Humalog U-100 Insulin) methylprednisolone sod suc(PF) 125 125 mg IM MONTHLY 04/24/21 06/20/22 History mg/2 mL solution for injection (Solu-Medrol (PF)) ondansetron 4 mg disintegrating 4 mg PO BID PRN 04/24/21 06/20/22 History tablet (Zofran ODT) carvedilol 12.5 mg tablet 12.5 mg PO BID #180 tabs 08/07/21 06/20/22 Rx losartan 50 mg tablet 75 mg PO DAILY 04/11/22 06/20/22 History furosemide 40 mg tablet 40 mg PO DAILY 06/20/22 06/20/22 History Exam Narrative Exam Narrative: Gen: NAD, normal respiratory effort, well-nourished HENT: PERRL, Chest: No respiratory distress, normal appearance of chest, clear to auscultation bilaterally, no crackles or wheezes, normal inspiratory effort Heart: regular rate and rhythym, + murmurs, rubs or gallops Abdomen: Non-distended, soft, non tender Extremities: No clubbing, 1+ edema, no cyanosis, rashes Neuro: AAOx3 , non focal Psych: cooperative, appropriate mental affect Results Labs Result diagrams: 06/20/22 21:55 06/20/22 21:55 Labs: Laboratory Results - last 24 hr 06/20/22 06/20/22 06/20/22 21:28 21:55 21:55 WBC RBC Hgb Hct MCV MCH MCHC RDW Plt Count MPV Immature Gran % Neutrophils % Lymphocytes % Monocytes % Eosinophils % Basophils % Nucleated RBC % Absolute Neutrophils Absolute Lymphocytes Absolute Monocytes Absolute Eosinophils Absolute Basophils VBG Lactate 1.6 H Sodium 134 L Potassium 3.8 Chloride 103 Carbon Dioxide 23.9 Anion Gap 7.1 BUN 73 H Creatinine 2.0 H Est GFR (CKD-EPI 2020) 36.58 Glucose 161 H Calcium 8.5 Magnesium Total Bilirubin 0.9 AST 51 H ALT 45 Alkaline Phosphatase 161 H Troponin I 432 H* NT-Pro-B Natriuret Pep 09715 H Total Protein 8.3 H Albumin 2.4 L Urine Color Urine Clarity Urine pH Ur Specific [place] Urine Protein Urine Ketones Urine Blood Urine Nitrite Urine Bilirubin Urine Urobilinogen Ur Leukocyte Esterase Urine RBC Urine WBC Ur Epithelial Cells Urine Crystals Urine Bacteria Urine Mucus Ur Culture Indicated? Urine Glucose COVID-19 Source Nasopharynx SARS-CoV-2 (PCR) Negative Influenza Type A (PCR) Negative Influenza Type B (PCR) Negative RSV (PCR) Negative 06/20/22 06/20/22 06/20/22 21:55 21:55 23:40 WBC 7.75 RBC 3.16 L Hgb 10.2 L Hct 31.4 L MCV 99 H MCH 32.3 MCHC 32.5 RDW 16.2 H Plt Count 62 L MPV 11.6 H Immature Gran % 0.4 Neutrophils % 88.2 Lymphocytes % 2.3 Monocytes % 8.3 Eosinophils % 0.4 Basophils % 0.4 Nucleated RBC % 0.0 Absolute Neutrophils 6.84 H Absolute Lymphocytes 0.18 L Absolute Monocytes 0.64 Absolute Eosinophils 0.03 Absolute Basophils 0.03 VBG Lactate Sodium Potassium Chloride Carbon Dioxide Anion Gap BUN Creatinine Est GFR (CKD-EPI 2020) Glucose Calcium Magnesium 2.0 Total Bilirubin AST ALT Alkaline Phosphatase Troponin I NT-Pro-B Natriuret Pep Total Protein Albumin Urine Color Yellow Urine Clarity Clear Urine pH 5.5 Ur Specific [place] 1.010 Urine Protein Negative Urine Ketones Negative Urine Blood Trace-intact H Urine Nitrite Negative Urine Bilirubin Negative Urine Urobilinogen 0.2 Ur Leukocyte Esterase Trace H Urine RBC 3-5 H Urine WBC 5-10 Ur Epithelial Cells Few Urine Crystals Negative Urine Bacteria Few Urine Mucus Negative Ur Culture Indicated? Yes Urine Glucose 250 H COVID-19 Source SARS-CoV-2 (PCR) Influenza Type A (PCR) Influenza Type B (PCR) RSV (PCR) Last Vital Signs Temp 37.5 C 06/21/22 00:26 Pulse 88 06/21/22 00:16 Resp 20 06/20/22 20:57 BP 110/53 L 06/21/22 00:16 Pulse Ox 97 06/21/22 00:20 Time Spent Time spent with Patient: 40-54 minutes Time was spent: preparing to see the patient(eg.review tests), obtaining and/or reviewing separately otained hiistory, ordering medications,tests, procedures, referring, communicating with other health floor care specialist and indepentently interpreting results
[2022-06-21 02:44] LABS: C-Reactive Protein 8.43 mg/dL (0.0-0.3); Creatine Kinase 16 U/L (39-308)
[2022-06-21 02:47] LABS: Troponin I 408 ng/L (<or=60)
[2022-06-21] MEDS: cefTRIAXone 1 GM/50 ML BAG IVPB (03:40)
[2022-06-21] MEDS: Acetaminophen 325 MG TAB 650 MG PO (03:41)
[2022-06-21] MEDS: Normal Saline Flush 10 ML SYR (05:31)
[2022-06-21 09:08] LABS: INR 1.1 (0.9-1.1); Prothrombin Time 11.4 sec (9.3-11.0)
[2022-06-21] MEDS: Multivitamin TAB 1 TAB PO (09:22)
[2022-06-21] MEDS: Aspirin E.C. 81 MG TABEC PO (09:22)
[2022-06-21] MEDS: Losartan 25 MG TAB 75 MG PO (09:22)
[2022-06-21] MEDS: Allopurinol 100 MG TAB 400 MG PO (09:23)
[2022-06-21] MEDS: Carvedilol 12.5 MG TAB PO ×2 (09:23→19:37)
[2022-06-21] MEDS: Furosemide 40 MG TAB PO (09:23)
[2022-06-21] MEDS: Magnesium Oxide 400 MG TAB PO ×2 (09:23→19:37)
[2022-06-21] MEDS: Insulin Aspart 300 UNITS/3 ML PEN SC ×4 (09:25→21:24)
[2022-06-21 09:42] LABS: BUN 72 mg/dL (7-18); CREATININE 1.9 mg/dL (0.70-1.30); Calcium 8.7 mg/dL (8.5-10.1); Estimated GFR 38.91 (mL/min/1.73m2); Glucose 317 mg/dL (74-106); Sodium 132 mmol/L (136-145); Troponin I 376 ng/L (<or=60)
[2022-06-21 09:43] LABS: Anion Gap 8.7 mmol/L (3-11); CO2 23.3 mmol/L (21.0-32.0); Chloride 100 mmol/L (98-107); Potassium 4.4 mmol/L (3.5-5.1)
[2022-06-21 10:58] LABS: Absolute Lymphocyte Count 0.19 10^3/uL (1.2-3.4); Absolute Neutrophil Count 5.08 10^3/uL (1.2-6.7); HCT 30.4 % (40.0-50.0); HGB 9.8 g/dL (13.5-17.5); Lymphocytes % 3.5; MCH 32.3 pg (27.0-33.0); MCHC 32.2 % (32.0-36.0); MCV 100 fL (80-95); MPV 12.9 fL (8.0-11.0); Monocytes % 1.8; Neutrophils % 93.9; RBC 3.03 10^6/uL (4.36-5.78); RDW 16.1 % (11.8-14.1); RDW-SD 58.6 fL; WBC 5.41 10^3/uL (4.4-10.8)
[2022-06-21 10:59] LABS: Abs Immature Grans 0.03 10^3/uL (0.0-0.06); Absolute Basophil Count 0.01 10^3/uL (0.0-0.2); Basophils % 0.2; Immature Grans % 0.6
[2022-06-21 11:00] LABS: Platelet Count 57 10^3/uL (130-400)
--- NOTE | 2022-06-21 11:03 | PGE_ITS ---
Date of Service Date of service: 06/21/22 Time of Service: 10:40 Assessment and Plan Assessment and plan (1) Fever: Status: Acute Assessment and plan: Patient was still febrile wit 38.2 temp. last night for which he received Acetaminophen; he is not febrile this AM. He was started on broad antibiotic coverage as he came in with a lactic acid of 2.8, down to 1.6 . We will continue mangement with Ceftriaxone until we have the urine culture results. Patient was MRSA negative on 04/13/22 Will keep trending his WBC, patient is not neutropenic at this time but liver cirrhosis put him at risk of immunosuppresion and risk of acquiring gram begative infection is increased due to diabetes and potential liver failure. He will also be covered with doxyclycline; he hads a previous infection with S. maltophilis on 04/26/2022. We will order liver function test as his CT showed liver cirrhosis Continue:Ceftriaxone and Doxycycline CBC and LFT in AM (2) HFrEF (heart failure with reduced ejection fraction): Status: Acute Assessment and plan: Patient has a previous EF of 35% today's results shows no changes Continue management with home medication as there is no acute decompensation at this point: Continue: losartan, Carvedilol, lasix, canagliflozin (3) HTN (hypertension): Status: Chronic Assessment and plan: As above (4) Acute on chronic renal insufficiency: Status: Acute Assessment and plan: Patient will continue antihypertensive, we will f/u on kidney functionlabs BMP in AM (5) Cirrhosis of liver: Status: Chronic Assessment and plan: Evidenced by CT, we will order LFT's to assess lever of liver dysfunction. Patient had a positve HB core antibody and should be tested for HBV DNA for low level of Hepatitis B infection. Will oreder HBV DNA (6) Thrombocytopenia: Status: Chronic Assessment and plan: We will not proceed with DVT prophylaxis as the patient has a platelet count of 57. We will f/u the trend. CBC in AM (7) Chronic anemia: Status: Chronic Assessment and plan: Patient has a normal ferritin level, but Iron = 31, TIBC= 167, and seems to have anemia of chronic disease. At this time there is no decompensation at this time and can be manage as an outpatient. (8) Thyroid nodule: Status: Acute Assessment and plan: Nodule of [address]: Thyroid ultra-sound and TSH are indicated for incidental finding of the nodule. Patient can also be referred for outpatient f/u if he decides. (9) Elevated troponin: Status: Acute Assessment and plan: The plan was to continue trending the troponin as per [facility]. Patient remains asymptomatic when it come to ACS signs and symptoms.He is on telemetry and has been SR 65 with a BBB. Platelets are 57 thsi AM and we are considering hold the ASA 81 mg home dose today, and follow up with AM labs We will order PRN EKG for rhythm change and chest pain, and sublingual nitro for chest pain for chest pain and rhythm change on telemetry Troponin in AM (10) Diabetes mellitus: Assessment and plan: Blood glucose 267 this AM. We will continue point of care blood glucose monitoring AC and HS with sliding scale insulin coverage, canagliflozin and lantus daily dose Qualifiers: Chronic kidney disease stage: stage 3 (moderate) Chronic kidney disease stage 3 subtype: stage 3b (GFR 30-44) Diabetes mellitus complication detail: with chronic kidney disease Diabetes mellitus complication status: with kidney complications Diabetes mellitus nursing home insulin use: with nursing home use Diabetes mellitus type: type 2 Qualified Code(s): E11.22 - Type 2 diabetes mellitus with diabetic chronic kidney disease; N18.32 - Chronic kidney disease, stage 3b; 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 ASA 81 mg is still ordered. We will continue to monitor the need for DVT prophylaxis (12) Discharge planning issues: Status: Acute Assessment and plan: No discharge planning issues at this time but CM will evaluate for oncoming problems. Subjective Subjective Patient reports: feels better (Denies chills, pain or chest pain, shortness of breath or cough, difficulty voiding or dysruria . Reports tolerating oral intake.), tolerating a regular diet, voiding w/o difficulty, flatus and bowel movement; denies diarrhea, vomiting or shortness of breath Exam Narrative Exam Narrative: patient is sitting at the edge of the bed during exam, spouse at the bedside. Obese body habitus. Patient is alert and oriented X3, speaks in full sentence and is calm and cooperative. No focal neurological deficits but right upper extremity strength is 4/5 due to past allergic reaction to Lipitor. Head is normocephalic, no adenopathy. Pansystolic cardiac murmur heard, previous EF was 35%. Lung are clear bilaterally normopnea on RA. Abdomen is large, non-tender, nondistended, bowel sounds are present. No costovertebral angle tenderness. No new skin lesion but discoloration to right lower extremity from previous infection. Objective Last Vital Signs Temp 96.4 F L 06/21/22 09:36 Pulse 78 06/21/22 09:36 Resp 18 06/21/22 09:36 BP 160/80 H 06/21/22 09:36 Pulse Ox 98 06/21/22 09:36 Laboratory Results - last 24 hr 06/20/22 06/20/22 06/20/22 21:28 21:55 21:55 WBC RBC Hgb Hct MCV MCH MCHC RDW Plt Count MPV Immature Gran % Neutrophils % Lymphocytes % Monocytes % Eosinophils % Basophils % Nucleated RBC % Absolute Neutrophils Absolute Lymphocytes Absolute Monocytes Absolute Eosinophils Absolute Basophils PT INR VBG Lactate 1.6 H Sodium 134 L Potassium 3.8 Chloride 103 Carbon Dioxide 23.9 Anion Gap 7.1 BUN 73 H Creatinine 2.0 H Est GFR (CKD-EPI 2020) 36.58 Glucose 161 H Calcium 8.5 Magnesium Total Bilirubin 0.9 AST 51 H ALT 45 Alkaline Phosphatase 161 H Creatine Kinase Troponin I 432 H* C-Reactive Protein NT-Pro-B Natriuret Pep 33092 H Total Protein 8.3 H Albumin 2.4 L Urine Color Urine Clarity Urine pH Ur Specific [place] Urine Protein Urine Ketones Urine Blood Urine Nitrite Urine Bilirubin Urine Urobilinogen Ur Leukocyte Esterase Urine RBC Urine WBC Ur Epithelial Cells Urine Crystals Urine Bacteria Urine Mucus Ur Culture Indicated? Urine Glucose COVID-19 Source Nasopharynx SARS-CoV-2 (PCR) Negative Influenza Type A (PCR) Negative Influenza Type B (PCR) Negative RSV (PCR) Negative 06/20/22 06/20/22 06/20/22 21:55 21:55 23:40 WBC 7.75 RBC 3.16 L Hgb 10.2 L Hct 31.4 L MCV 99 H MCH 32.3 MCHC 32.5 RDW 16.2 H Plt Count 62 L MPV 11.6 H Immature Gran % 0.4 Neutrophils % 88.2 Lymphocytes % 2.3 Monocytes % 8.3 Eosinophils % 0.4 Basophils % 0.4 Nucleated RBC % 0.0 Absolute Neutrophils 6.84 H Absolute Lymphocytes 0.18 L Absolute Monocytes 0.64 Absolute Eosinophils 0.03 Absolute Basophils 0.03 PT INR VBG Lactate Sodium Potassium Chloride Carbon Dioxide Anion Gap BUN Creatinine Est GFR (CKD-EPI 2020) Glucose Calcium Magnesium 2.0 Total Bilirubin AST ALT Alkaline Phosphatase Creatine Kinase Troponin I C-Reactive Protein NT-Pro-B Natriuret Pep Total Protein Albumin Urine Color Yellow Urine Clarity Clear Urine pH 5.5 Ur Specific [place] 1.010 Urine Protein Negative Urine Ketones Negative Urine Blood Trace-intact H Urine Nitrite Negative Urine Bilirubin Negative Urine Urobilinogen 0.2 Ur Leukocyte Esterase Trace H Urine RBC 3-5 H Urine WBC 5-10 Ur Epithelial Cells Few Urine Crystals Negative Urine Bacteria Few Urine Mucus Negative Ur Culture Indicated? Yes Urine Glucose 250 H COVID-19 Source SARS-CoV-2 (PCR) Influenza Type A (PCR) Influenza Type B (PCR) RSV (PCR) 06/21/22 06/21/22 06/21/22 01:50 01:51 02:20 WBC RBC Hgb Hct MCV MCH MCHC RDW Plt Count MPV Immature Gran % Neutrophils % Lymphocytes % Monocytes % Eosinophils % Basophils % Nucleated RBC % Absolute Neutrophils Absolute Lymphocytes Absolute Monocytes Absolute Eosinophils Absolute Basophils PT INR VBG Lactate Sodium Potassium Chloride Carbon Dioxide Anion Gap BUN Creatinine Est GFR (CKD-EPI 2020) Glucose Calcium Magnesium Total Bilirubin AST ALT Alkaline Phosphatase Creatine Kinase Cancelled 16 L Troponin I Cancelled 408 H* C-Reactive Protein Cancelled 8.43 H NT-Pro-B Natriuret Pep Total Protein Albumin Urine Color Urine Clarity Urine pH Ur Specific [place] Urine Protein Urine Ketones Urine Blood Urine Nitrite Urine Bilirubin Urine Urobilinogen Ur Leukocyte Esterase Urine RBC Urine WBC Ur Epithelial Cells Urine Crystals Urine Bacteria Urine Mucus Ur Culture Indicated? Urine Glucose COVID-19 Source SARS-CoV-2 (PCR) Influenza Type A (PCR) Influenza Type B (PCR) RSV (PCR) 06/21/22 06/21/22 06/21/22 04:50 05:21 05:31 WBC RBC Hgb Hct MCV MCH MCHC RDW Plt Count MPV Immature Gran % Neutrophils % Lymphocytes % Monocytes % Eosinophils % Basophils % Nucleated RBC % Absolute Neutrophils Absolute Lymphocytes Absolute Monocytes Absolute Eosinophils Absolute Basophils PT 11.4 H INR 1.1 VBG Lactate Sodium 132 L Potassium 4.4 Chloride 100 Carbon Dioxide 23.3 Anion Gap 8.7 BUN 72 H Creatinine 1.9 H Est GFR (CKD-EPI 2020) 38.91 Glucose 317 H Calcium 8.7 Magnesium Total Bilirubin AST ALT Alkaline Phosphatase Creatine Kinase Troponin I Cancelled C-Reactive Protein NT-Pro-B Natriuret Pep Total Protein Albumin Urine Color Urine Clarity Urine pH Ur Specific [place] Urine Protein Urine Ketones Urine Blood Urine Nitrite Urine Bilirubin Urine Urobilinogen Ur Leukocyte Esterase Urine RBC Urine WBC Ur Epithelial Cells Urine Crystals Urine Bacteria Urine Mucus Ur Culture Indicated? Urine Glucose COVID-19 Source SARS-CoV-2 (PCR) Influenza Type A (PCR) Influenza Type B (PCR) RSV (PCR) 06/21/22 06/21/22 05:31 05:31 WBC 5.41 RBC 3.03 L Hgb 9.8 L Hct 30.4 L MCV 100 H MCH 32.3 MCHC 32.2 RDW 16.1 H Plt Count 57 L MPV 12.9 H Immature Gran % 0.6 Neutrophils % 93.9 Lymphocytes % 3.5 Monocytes % 1.8 Eosinophils % 0.0 Basophils % 0.2 Nucleated RBC % 0.0 Absolute Neutrophils 5.08 Absolute Lymphocytes 0.19 L Absolute Monocytes 0.10 Absolute Eosinophils 0.00 Absolute Basophils 0.01 PT INR VBG Lactate Sodium Potassium Chloride Carbon Dioxide Anion Gap BUN Creatinine Est GFR (CKD-EPI 2020) Glucose Calcium Magnesium Total Bilirubin AST ALT Alkaline Phosphatase Creatine Kinase Troponin I 376 H* C-Reactive Protein NT-Pro-B Natriuret Pep Total Protein Albumin Urine Color Urine Clarity Urine pH Ur Specific [place] Urine Protein Urine Ketones Urine Blood Urine Nitrite Urine Bilirubin Urine Urobilinogen Ur Leukocyte Esterase Urine RBC Urine WBC Ur Epithelial Cells Urine Crystals Urine Bacteria Urine Mucus Ur Culture Indicated? Urine Glucose COVID-19 Source SARS-CoV-2 (PCR) Influenza Type A (PCR) Influenza Type B (PCR) RSV (PCR) Time Spent with Patient Time Spent with Patient: >50 minutes Time was spent: preparing to see the patient(eg.review tests)
--- NOTE | 2022-06-21 16:12 | INITIAL_ITS ---
- If Service Date Differs Date of service: 06/21/22 Time of Service: 16:12 Care Management Initial Assess REASON FOR HOSPITALIZATION:: Fever of unknown origin, Elevated troponin, Thrombocytopenia, Mass of thyroid gland PAST MEDICAL HISTORY/PAST SURGICAL HISTORY:: medically complex 62 yo with a history of DM, HTN, CKD, several elevated troponin encounters, mild , cardiomyopathy (HFrEF 35%), autoimmune-statin induced myopathy, cirrhosis, Barretts esophagus and chronic anemia and thrombocytopenia who presents with significant fevers. Medical History . Basal cell carcinoma, face. Cardiomyopathy. Chronic kidney disease. Diabetes mellitus. Duodenitis. DVT (deep venous thrombosis). Essential hypertension. Gout. Hypercholesterolemia. Inclusion body myositis. Kidney stone. 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 NSTEMI (non-ST elevated myocardial infarction). Obesity. Pancytopenia. Pulmonary embolism. Shingles. Vasculitis. Surgical History . Colonoscopy - [facility] (~2009). EGD - [facility] (~2009). LITHOTRIPSY. MUSCLE BIOPSY. POWER PORT. Repair of umbilical hernia PREVIOUS FUNCTIONAL STATUS/SOCIAL/FAMILY SUPPORTS:: Resides in [place] with , Bethanie. Independent at baseline in the community, though chronically unwell per MD-utilizes a cane with ambulation. CURRENT FUNCTIONAL STATUS:: Up independently with FWW, calm and cooperative; continues to require close monitoring and inpatient treatment. ADVANCE DIRECTIVES:: None on file. Has patient been provided with info about the portal/API?: Yes Did the patient sign up for the portal?: Yes CODE STATUS:: Full Code INSURANCE COVERAGE / FINANCIAL ISSUES:: [facility]. Financial Asst 100 CURRENT HOME/COMMUNITY SERVICES/EQUIPMENT:: Ashley, last visit with rheumatology was 06/19/22. He receives IVIG monthly as well as 500mg Solu medrol monthly. PRIMARY CARE PHYSICIAN:: Jazmine Baer POTENTIAL DISCHARGE NEEDS:: Follow up appointments. PATIENT/FAMILY EDUCATION NEEDS:: Review discharge instructions, discuss Ask Me Three. ANTICIPATED BARRIERS TO DISCHARGE:: None identified. TRANSPORTATION:: Via private vehicle with his . PLAN:: Bucky continues to be closely monitored. Undetermined course of treatement at this time; anticipate he will return home via private vehicle with his and follow up as an outpatient. CM continues to follow.
--- NOTE | 2022-06-21 17:11 | W.PM.PROGNOT ---
Date of Service Date of service: 06/21/22 Time of Service: 17:13 Subjective Subjective Interval history since last seen: Patient was seen in brief follow up. He continues to report a cough which is productive. He does not know the color of the sputum. Denies dizziness, chest pain, shortness of breath, nausea. He does not feel like his myopathy is flaring right now. His CPK is low and also argues against it. His blood cultures are still pending. His R great toe is dressed but does not look bad. He just saw podiatry for it last week. I will ask Dr Barron to see him again. Objective Last Vital Signs Temp 36.0 C L 06/21/22 15:06 Pulse 79 06/21/22 15:53 Resp 17 06/21/22 15:06 BP 140/75 06/21/22 15:06 Pulse Ox 100 06/21/22 15:06 Laboratory Results - last 24 hr 06/20/22 06/20/22 06/20/22 21:28 21:55 21:55 WBC RBC Hgb Hct MCV MCH MCHC RDW Plt Count MPV Immature Gran % Neutrophils % Lymphocytes % Monocytes % Eosinophils % Basophils % Nucleated RBC % Absolute Neutrophils Absolute Lymphocytes Absolute Monocytes Absolute Eosinophils Absolute Basophils PT INR VBG Lactate 1.6 H Sodium 134 L Potassium 3.8 Chloride 103 Carbon Dioxide 23.9 Anion Gap 7.1 BUN 73 H Creatinine 2.0 H Est GFR (CKD-EPI 2020) 36.58 Glucose 161 H Calcium 8.5 Magnesium Total Bilirubin 0.9 AST 51 H ALT 45 Alkaline Phosphatase 161 H Creatine Kinase Troponin I 432 H* C-Reactive Protein NT-Pro-B Natriuret Pep 62244 H Total Protein 8.3 H Albumin 2.4 L Urine Color Urine Clarity Urine pH Ur Specific [place] Urine Protein Urine Ketones Urine Blood Urine Nitrite Urine Bilirubin Urine Urobilinogen Ur Leukocyte Esterase Urine RBC Urine WBC Ur Epithelial Cells Urine Crystals Urine Bacteria Urine Mucus Ur Culture Indicated? Urine Glucose COVID-19 Source Nasopharynx SARS-CoV-2 (PCR) Negative Influenza Type A (PCR) Negative Influenza Type B (PCR) Negative RSV (PCR) Negative 06/20/22 06/20/22 06/20/22 21:55 21:55 23:40 WBC 7.75 RBC 3.16 L Hgb 10.2 L Hct 31.4 L MCV 99 H MCH 32.3 MCHC 32.5 RDW 16.2 H Plt Count 62 L MPV 11.6 H Immature Gran % 0.4 Neutrophils % 88.2 Lymphocytes % 2.3 Monocytes % 8.3 Eosinophils % 0.4 Basophils % 0.4 Nucleated RBC % 0.0 Absolute Neutrophils 6.84 H Absolute Lymphocytes 0.18 L Absolute Monocytes 0.64 Absolute Eosinophils 0.03 Absolute Basophils 0.03 PT INR VBG Lactate Sodium Potassium Chloride Carbon Dioxide Anion Gap BUN Creatinine Est GFR (CKD-EPI 2020) Glucose Calcium Magnesium 2.0 Total Bilirubin AST ALT Alkaline Phosphatase Creatine Kinase Troponin I C-Reactive Protein NT-Pro-B Natriuret Pep Total Protein Albumin Urine Color Yellow Urine Clarity Clear Urine pH 5.5 Ur Specific [place] 1.010 Urine Protein Negative Urine Ketones Negative Urine Blood Trace-intact H Urine Nitrite Negative Urine Bilirubin Negative Urine Urobilinogen 0.2 Ur Leukocyte Esterase Trace H Urine RBC 3-5 H Urine WBC 5-10 Ur Epithelial Cells Few Urine Crystals Negative Urine Bacteria Few Urine Mucus Negative Ur Culture Indicated? Yes Urine Glucose 250 H COVID-19 Source SARS-CoV-2 (PCR) Influenza Type A (PCR) Influenza Type B (PCR) RSV (PCR) 06/21/22 06/21/22 06/21/22 01:50 01:51 02:20 WBC RBC Hgb Hct MCV MCH MCHC RDW Plt Count MPV Immature Gran % Neutrophils % Lymphocytes % Monocytes % Eosinophils % Basophils % Nucleated RBC % Absolute Neutrophils Absolute Lymphocytes Absolute Monocytes Absolute Eosinophils Absolute Basophils PT INR VBG Lactate Sodium Potassium Chloride Carbon Dioxide Anion Gap BUN Creatinine Est GFR (CKD-EPI 2020) Glucose Calcium Magnesium Total Bilirubin AST ALT Alkaline Phosphatase Creatine Kinase Cancelled 16 L Troponin I Cancelled 408 H* C-Reactive Protein Cancelled 8.43 H NT-Pro-B Natriuret Pep Total Protein Albumin Urine Color Urine Clarity Urine pH Ur Specific [place] Urine Protein Urine Ketones Urine Blood Urine Nitrite Urine Bilirubin Urine Urobilinogen Ur Leukocyte Esterase Urine RBC Urine WBC Ur Epithelial Cells Urine Crystals Urine Bacteria Urine Mucus Ur Culture Indicated? Urine Glucose COVID-19 Source SARS-CoV-2 (PCR) Influenza Type A (PCR) Influenza Type B (PCR) RSV (PCR) 06/21/22 06/21/22 06/21/22 04:50 05:21 05:31 WBC RBC Hgb Hct MCV MCH MCHC RDW Plt Count MPV Immature Gran % Neutrophils % Lymphocytes % Monocytes % Eosinophils % Basophils % Nucleated RBC % Absolute Neutrophils Absolute Lymphocytes Absolute Monocytes Absolute Eosinophils Absolute Basophils PT 11.4 H INR 1.1 VBG Lactate Sodium 132 L Potassium 4.4 Chloride 100 Carbon Dioxide 23.3 Anion Gap 8.7 BUN 72 H Creatinine 1.9 H Est GFR (CKD-EPI 2020) 38.91 Glucose 317 H Calcium 8.7 Magnesium Total Bilirubin AST ALT Alkaline Phosphatase Creatine Kinase Troponin I Cancelled C-Reactive Protein NT-Pro-B Natriuret Pep Total Protein Albumin Urine Color Urine Clarity Urine pH Ur Specific [place] Urine Protein Urine Ketones Urine Blood Urine Nitrite Urine Bilirubin Urine Urobilinogen Ur Leukocyte Esterase Urine RBC Urine WBC Ur Epithelial Cells Urine Crystals Urine Bacteria Urine Mucus Ur Culture Indicated? Urine Glucose COVID-19 Source SARS-CoV-2 (PCR) Influenza Type A (PCR) Influenza Type B (PCR) RSV (PCR) 06/21/22 06/21/22 05:31 05:31 WBC 5.41 RBC 3.03 L Hgb 9.8 L Hct 30.4 L MCV 100 H MCH 32.3 MCHC 32.2 RDW 16.1 H Plt Count 57 L MPV 12.9 H Immature Gran % 0.6 Neutrophils % 93.9 Lymphocytes % 3.5 Monocytes % 1.8 Eosinophils % 0.0 Basophils % 0.2 Nucleated RBC % 0.0 Absolute Neutrophils 5.08 Absolute Lymphocytes 0.19 L Absolute Monocytes 0.10 Absolute Eosinophils 0.00 Absolute Basophils 0.01 PT INR VBG Lactate Sodium Potassium Chloride Carbon Dioxide Anion Gap BUN Creatinine Est GFR (CKD-EPI 2020) Glucose Calcium Magnesium Total Bilirubin AST ALT Alkaline Phosphatase Creatine Kinase Troponin I 376 H* C-Reactive Protein NT-Pro-B Natriuret Pep Total Protein Albumin Urine Color Urine Clarity Urine pH Ur Specific [place] Urine Protein Urine Ketones Urine Blood Urine Nitrite Urine Bilirubin Urine Urobilinogen Ur Leukocyte Esterase Urine RBC Urine WBC Ur Epithelial Cells Urine Crystals Urine Bacteria Urine Mucus Ur Culture Indicated? Urine Glucose COVID-19 Source SARS-CoV-2 (PCR) Influenza Type A (PCR) Influenza Type B (PCR) RSV (PCR) Time Spent with Patient Time Spent with Patient: <25 minutes Time was spent: preparing to see the patient(eg.review tests), obtaining and/or reviewing separately otained hiistory, ordering medications,tests, procedures, referring, communicating with other health critical care educator, indepentently interpreting results, counseling the patient and care coordination
[2022-06-21] MEDS: Insulin Glargine 300 UNITS/3 ML PEN 50 UNITS SC (21:26)
[2022-06-22] VITALS (9 sets, daily range): BP systolic 117–165; BP diastolic 67–83; PULSE 67–83; RESP 16–18; TEMP 35.2–36.3; O2SAT 98–100
[2022-06-22] MEDS: cefTRIAXone 1 GM/50 ML BAG IVPB (04:02)
[2022-06-22] MEDS: Normal Saline Flush 10 ML SYR (04:02)
[2022-06-22] MEDS: DOXYCYCLINE 100 MG in Normal Saline 100 ML IVPB ×2 (05:16→15:38)
[2022-06-22 07:12] LABS: Abs Immature Grans 0.06 10^3/uL (0.0-0.06); Absolute Basophil Count 0.01 10^3/uL (0.0-0.2); Absolute Eosinophil Count 0.02 10^3/uL (0.0-0.7); Absolute Lymphocyte Count 0.38 10^3/uL (1.2-3.4); Absolute Monocyte Count 0.79 10^3/uL (0.1-0.8); Absolute Neutrophil Count 6.56 10^3/uL (1.2-6.7); Basophils % 0.1; Eosinophils % 0.3; HCT 29.7 % (40.0-50.0); HGB 9.7 g/dL (13.5-17.5); Immature Grans % 0.8; Lymphocytes % 4.9; MCH 32.3 pg (27.0-33.0); MCHC 32.7 % (32.0-36.0); MCV 99 fL (80-95); MPV 12.2 fL (8.0-11.0); Monocytes % 10.1; Neutrophils % 83.8; RDW 16.3 % (11.8-14.1); RDW-SD 59.3 fL; WBC 7.82 10^3/uL (4.4-10.8)
[2022-06-22 07:26] LABS: Anion Gap 6.6 mmol/L (3-11); BUN 75 mg/dL (7-18); C-Reactive Protein 7.86 mg/dL (0.0-0.3); CO2 24.4 mmol/L (21.0-32.0); CREATININE 1.8 mg/dL (0.70-1.30); Calcium 8.6 mg/dL (8.5-10.1); Chloride 103 mmol/L (98-107); Estimated GFR 41.51 (mL/min/1.73m2); Glucose 217 mg/dL (74-106); Magnesium 2.3 mg/dL (1.8-2.4); Potassium 4.2 mmol/L (3.5-5.1); Sodium 134 mmol/L (136-145)
[2022-06-22 07:32] LABS: ALT 41 U/L (16-63); AST 39 U/L (15-37); Albumin 2.3 g/dL (3.4-5.0); Alkaline Phosphatase 146 U/L (46-116); Bilirubin, Direct 0.2 mg/dL (0.0-0.2); Bilirubin, Total 0.4 mg/dL (0.2-1.0); Total Protein 7.5 g/dL (6.4-8.2)
[2022-06-22 07:35] LABS: Diff Comment Diff Reviewed; Platelet Count 66 10^3/uL (130-400); RBC Morphology Normal
[2022-06-22] MEDS: Aspirin E.C. 81 MG TABEC PO (08:13)
[2022-06-22] MEDS: Losartan 25 MG TAB 75 MG PO (08:14)
[2022-06-22] MEDS: Allopurinol 100 MG TAB 400 MG PO (08:14)
[2022-06-22] MEDS: Carvedilol 12.5 MG TAB PO ×2 (08:14→19:44)
[2022-06-22] MEDS: Insulin Aspart 300 UNITS/3 ML PEN SC ×4 (08:14→21:08)
[2022-06-22] MEDS: Furosemide 40 MG TAB PO (08:14)
[2022-06-22] MEDS: Multivitamin TAB 1 TAB PO (08:14)
[2022-06-22] MEDS: Magnesium Oxide 400 MG TAB PO ×2 (08:14→19:44)
--- NOTE | 2022-06-22 09:08 | PDOC.CMPRO ---
- If Service Date Differs Date of service: 06/22/22 Time of Service: 09:08 Care Management Progress Note S/O: Bucky is sitting up in his chair working on his laptop when CM met with him. He is awake, alert and able to engage in conversation. He is being treated with IV Ceftriaxone and Doxycycline and has cultures pending. Per provider, Bucky requires further medical work up. A: 62 year old male admitted to [facility] on 06/21/22 for Fever of unknown origin, Elevated troponin, Thrombocytopenia, Mass of thyroid gland P:Bucky continues to be closely monitored. Undetermined course of treatment at this time; anticipate he will return home via private vehicle with his and follow up as an outpatient. CM continues to follow.
[2022-06-22 11:34] LABS: Lab Add On Test DONE
--- NOTE | 2022-06-22 12:21 | W.PODCONSULT ---
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 No clinical signs of infection noted. Recommend continued wound care (optifoam or comparable as opposed to non adherant dressing), recommend vascular consult (appt with [facility] pending), and recommend more appropriate offloading with DM shoes and orthotics (pending). Pt has appt in clinic; will follow as an outpatient. History of Present Illness History of Present Illness Chief Complaint: R hallux ulcer Narrative: Bucky is a 62 year old male with DM, admitted for acute on chronic renal insufficiency, whom I've been asked to evaluate for a R hallux ulcer. He was evaluated at bedside. He reports that he feels the ulcer looks better and he denies any recent redness, swelling, or signs of infection. It is covered with a non adherent dressing today (telfa or similar). He reports he is still awaiting the rescheduling of his appt with [facility], and awaiting his DM shoes Consults Consult date: 06/22/22 [facility] All Active Problems (Updated 06/22/22 @ 12:26 by Annette Barron DPM) Ulcer of foot (Acute) Thyroid nodule (Acute) Fever (Acute) HFrEF (heart failure with reduced ejection fraction) (Acute) Thrombocytopenia (Chronic) Acute on chronic renal insufficiency (Acute) Lower extremity cellulitis (Acute) Renal insufficiency (Chronic) Impacted cerumen of both ears (Acute) HTN (hypertension) (Chronic) Cirrhosis of liver (Chronic) Subclavian vein thrombosis (Acute) Myopathy (Acute) Barretts esophagus (Acute) Hearing deficit (Acute) Epistaxis (Acute) Chronic anemia (Acute) Edema (Acute) Heart murmur, systolic (Acute) CALDERON (dyspnea on exertion) (Acute) Diastolic dysfunction (Acute) Excess ear wax (Acute) Weakness of both legs (Acute) Nocturnal cough (Acute) Medication monitoring encounter (Acute) Skin cancer, basal cell (Acute) face Elevated troponin (Acute) Medical History Basal cell carcinoma, face Cardiomyopathy Chronic kidney disease Diabetes mellitus Duodenitis DVT (deep venous thrombosis) Essential hypertension Gout Hypercholesterolemia 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 Sister Diabetes PATERNAL UNCLE Personal history of malignant neoplasm STOMACH Social History Smoking/Tobacco Use Status: Never Smoking risk assessment performed?: Yes Alcohol Intake: never Drug use: Never Substance use type: does not use Do you feel safe at home: Yes Do you feel safe in your relationship?: Yes Exam Skin Other: Remainder of examination without any changes since my evaluation in clinic last week. R LE examination: Full thickness ulceration plantar R hallux, with depth through skin and subcutaneous tissue, ~4-5 mm in diameter, with surrounding hyperkeratotic skin but without erythema, purulence, fluctuance, lymphangitis, crepitus or signs of infection Results Last Vital Signs Temp 96.6 F L 06/22/22 11:02 Pulse 69 06/22/22 11:02 Resp 16 06/22/22 11:02 BP 132/83 06/22/22 11:02 Pulse Ox 98 06/22/22 11:02 Labs Result diagrams: 06/22/22 06:50 06/22/22 06:50 Labs: Laboratory Results - last 24 hr 06/21/22 06/22/22 06/22/22 05:30 06:50 06:50 WBC 7.82 RBC 3.00 L Hgb 9.7 L Hct 29.7 L MCV 99 H MCH 32.3 MCHC 32.7 RDW 16.3 H Plt Count 66 L MPV 12.2 H Immature Gran % 0.8 Neutrophils % 83.8 Lymphocytes % 4.9 Monocytes % 10.1 Eosinophils % 0.3 Basophils % 0.1 Nucleated RBC % 0.0 Absolute Neutrophils 6.56 Absolute Lymphocytes 0.38 L Absolute Monocytes 0.79 Absolute Eosinophils 0.02 Absolute Basophils 0.01 RBC Morphology Normal Sodium 134 L Potassium 4.2 Chloride 103 Carbon Dioxide 24.4 Anion Gap 6.6 BUN 75 H Creatinine 1.8 H Est GFR (CKD-EPI 2020) 41.51 Glucose 217 H Calcium 8.6 Magnesium 2.3 Total Bilirubin Conjugated Bilirubin AST ALT Alkaline Phosphatase C-Reactive Protein 7.86 H Total Protein Albumin Cortisol 18 Add-On Test Request 06/22/22 06/22/22 06:50 06:50 WBC RBC Hgb Hct MCV MCH MCHC RDW Plt Count MPV Immature Gran % Neutrophils % Lymphocytes % Monocytes % Eosinophils % Basophils % Nucleated RBC % Absolute Neutrophils Absolute Lymphocytes Absolute Monocytes Absolute Eosinophils Absolute Basophils RBC Morphology Sodium Potassium Chloride Carbon Dioxide Anion Gap BUN Creatinine Est GFR (CKD-EPI 2020) Glucose Calcium Magnesium Total Bilirubin 0.4 Conjugated Bilirubin 0.2 AST 39 H ALT 41 Alkaline Phosphatase 146 H C-Reactive Protein Total Protein 7.5 Albumin 2.3 L Cortisol Add-On Test Request DONE
--- NOTE | 2022-06-22 14:08 | CHAPLAIN ---
Bucky was up in the chair when I visited. He was pleasant and easily engaged in a conversation. He's been in touch with his family and told his not to drive to [facility] today as they live in [place] and the roads are messy today. I explained my role and offered support.
--- NOTE | 2022-06-22 19:33 | W.PM.PROGNOT ---
Date of Service Date of service: 06/22/22 Time of Service: 19:33 Assessment and Plan Assessment and plan (1) Acute bronchitis: Status: Acute Assessment and plan: Continue empiric doxycycline/ceftriaxone. Defervesced and improved. Anticipate discharge home tomorrow. (2) Thrombocytopenia: Status: Chronic Assessment and plan: S/p bone marrow bx. Avoid chemical DVT ppx Follow up as outpatient. (3) Renal insufficiency: Status: Chronic Assessment and plan: Cr better than baseline. Follow up as outpatient. (4) HTN (hypertension): Status: Chronic Assessment and plan: Continue losartan. (5) Cirrhosis of liver: Status: Chronic Assessment and plan: HORTON cirrhosis low sodium diet. Continue furosemide. Follow up as outpatient. (6) Myopathy: Status: Acute Assessment and plan: Autoimmune, statin induced , on monthly IVIG and solumedrol. Not in acute flare per CPK. Follow up as outpatient. Am cortisol is not c/w adrenal insufficiency. (7) Barretts esophagus: Status: Acute Assessment and plan: Not on a PPI - consider starting. (8) Chronic anemia: Status: Chronic Assessment and plan: S/p recent bone marrow bx. F/u as outpatient. Does get arinesp infusions and is due for one on Saturday. (9) Elevated troponin: Status: Acute Assessment and plan: Not ACS. This is likely a product of his myopathy. No further ischemic workup on this admission. (10) HFrEF (heart failure with reduced ejection fraction): Status: Acute Assessment and plan: LVEF 3% by echo here. Continue PO furosemide. Consider temporarily increasing the dose on discharge. (11) Diabetes mellitus: Assessment and plan: Continue basal bolus inuslin. 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 Suspect bronchitis due to a viral illness vs a bacterial process since he seems to have gotten better with antibiotics. Await expanded respiratory panel. Would discharge home on oral abx to complete a 5 day course. (13) Thyroid nodule: Status: Acute Assessment and plan: outpatient work up (14) DVT prophylaxis: Status: Acute Assessment and plan: SCDs. Avoiding chemical DVT ppx due to thrombocytopenia (15) Discharge planning issues: Status: Acute Assessment and plan: Full code. Anticipate discharge home tomorrow. Subjective Subjective Interval history since last seen: Mr Acevedo states that the cough is almost entirely gone. He feels almost back to normal. His lives far away and would need to come pick him up, so he is more comfortable being discharged home tomorrow. He denies dizziness, chest pain, shortness of breath, nausea. Exam Narrative Exam Narrative: General: Pleasant middle-aged male who is sitting up at the edge of the bed, does cough when taking a deep breath, A&Ox3, NAD HEENT: EOMI, MMM Heart: RRR, no m/r/g Lungs: Coarse breath sounds B Abdomen: soft, nontender, nondistended Extremities: +1 edema BLEs Objective Last Vital Signs Temp 35.9 C L 06/22/22 15:15 Pulse 67 06/22/22 15:15 Resp 16 06/22/22 15:15 BP 149/79 H 06/22/22 15:15 Pulse Ox 100 06/22/22 15:15 Laboratory Results - last 24 hr 06/21/22 06/22/22 06/22/22 05:30 06:50 06:50 WBC 7.82 RBC 3.00 L Hgb 9.7 L Hct 29.7 L MCV 99 H MCH 32.3 MCHC 32.7 RDW 16.3 H Plt Count 66 L MPV 12.2 H Immature Gran % 0.8 Neutrophils % 83.8 Lymphocytes % 4.9 Monocytes % 10.1 Eosinophils % 0.3 Basophils % 0.1 Nucleated RBC % 0.0 Absolute Neutrophils 6.56 Absolute Lymphocytes 0.38 L Absolute Monocytes 0.79 Absolute Eosinophils 0.02 Absolute Basophils 0.01 RBC Morphology Normal Sodium 134 L Potassium 4.2 Chloride 103 Carbon Dioxide 24.4 Anion Gap 6.6 BUN 75 H Creatinine 1.8 H Est GFR (CKD-EPI 2020) 41.51 Glucose 217 H Calcium 8.6 Magnesium 2.3 Total Bilirubin Conjugated Bilirubin AST ALT Alkaline Phosphatase C-Reactive Protein 7.86 H Total Protein Albumin Cortisol 18 Add-On Test Request 06/22/22 06/22/22 06:50 06:50 WBC RBC Hgb Hct MCV MCH MCHC RDW Plt Count MPV Immature Gran % Neutrophils % Lymphocytes % Monocytes % Eosinophils % Basophils % Nucleated RBC % Absolute Neutrophils Absolute Lymphocytes Absolute Monocytes Absolute Eosinophils Absolute Basophils RBC Morphology Sodium Potassium Chloride Carbon Dioxide Anion Gap BUN Creatinine Est GFR (CKD-EPI 2020) Glucose Calcium Magnesium Total Bilirubin 0.4 Conjugated Bilirubin 0.2 AST 39 H ALT 41 Alkaline Phosphatase 146 H C-Reactive Protein Total Protein 7.5 Albumin 2.3 L Cortisol Add-On Test Request DONE Objective Narrative Objective Narrative: Echo; Left ventricle is moderately dilated.? Wall thickness is normal.? Estimated ejection fraction is 35% with global hypokinesis Right ventricle is not well visualized Left atrium is mildly dilated.? Right atrial size is normal Aortic valve is calcified.? There is mild aortic stenosis.? Peak gradient is 28, mean 17 mmHg.? Calculated aortic valve area is 1.32 cm??.? There is trace aortic regurgitation Mild mitral annular calcification.? Trace to mild mitral regurgitation Normal tricuspid valve with trace to mild regurgitation.? Estimated right ventricular systolic pressure is 19 mmHg Mildly dilated ascending aorta measuring 3.6 cm Time Spent with Patient Time Spent with Patient: 25-34 minutes Time was spent: preparing to see the patient(eg.review tests), obtaining and/or reviewing separately otained hiistory, ordering medications,tests, procedures, indepentently interpreting results, counseling the patient and care coordination
[2022-06-22] MEDS: Insulin Glargine 300 UNITS/3 ML PEN 50 UNITS SC (21:06)
[2022-06-22 22:47] LABS: Adenovirus DNA Result Negative (Negative); Metapneumovirus RNA Result Negative (Negative); Parainfluenza Type1 RNA Result Negative (Negative); Parainfluenza Type2 RNA Result Negative (Negative); Parainfluenza Type3 RNA Result Negative (Negative); Parainfluenza Type4 RNA Result Negative (Negative); Rhinovirus RNA Result Negative (Negative)
[2022-06-23] MEDS: cefTRIAXone 1 GM/50 ML BAG IVPB (03:10)
[2022-06-23] MEDS: Normal Saline Flush 10 ML SYR IVP ×3 (03:11→11:16)
[2022-06-23 03:23] VITALS: BP 123/73; PULSE 73; RESP 16; TEMP 36.4; O2SAT 98
[2022-06-23] MEDS: DOXYCYCLINE 100 MG in Normal Saline 100 ML IVPB (04:17)
[2022-06-23 06:23] LABS: Abs Immature Grans 0.05 10^3/uL (0.0-0.06); Absolute Basophil Count 0.03 10^3/uL (0.0-0.2); Absolute Eosinophil Count 0.06 10^3/uL (0.0-0.7); Absolute Lymphocyte Count 0.58 10^3/uL (1.2-3.4); Absolute Monocyte Count 0.66 10^3/uL (0.1-0.8); Absolute Neutrophil Count 4.94 10^3/uL (1.2-6.7); Basophils % 0.5; Eosinophils % 0.9; HCT 30.9 % (40.0-50.0); Immature Grans % 0.8; Lymphocytes % 9.2; MCH 32.5 pg (27.0-33.0); MCHC 32.4 % (32.0-36.0); MCV 100 fL (80-95); MPV 11.3 fL (8.0-11.0); Monocytes % 10.4; Neutrophils % 78.2; RBC 3.08 10^6/uL (4.36-5.78); RDW 16.2 % (11.8-14.1); RDW-SD 59.4 fL; WBC 6.32 10^3/uL (4.4-10.8)
[2022-06-23 06:47] LABS: Anion Gap 6.7 mmol/L (3-11); BUN 77 mg/dL (7-18); CO2 26.3 mmol/L (21.0-32.0); CREATININE 1.6 mg/dL (0.70-1.30); Calcium 8.7 mg/dL (8.5-10.1); Chloride 105 mmol/L (98-107); Estimated GFR 47.82 (mL/min/1.73m2); Glucose 142 mg/dL (74-106); Magnesium 2.2 mg/dL (1.8-2.4); Sodium 138 mmol/L (136-145)
[2022-06-23 07:15] LABS: Platelet Count 70 10^3/uL (130-400)
[2022-06-23 07:16] LABS: Diff Comment Diff Reviewed; RBC Morphology Normal
[2022-06-23 07:33] VITALS: PULSE 73
[2022-06-23 07:35] VITALS: BP 153/79; PULSE 72; RESP 18; TEMP 36.5; O2SAT 99
[2022-06-23] MEDS: Magnesium Oxide 400 MG TAB PO (08:33)
[2022-06-23] MEDS: Furosemide 40 MG TAB PO (08:33)
[2022-06-23] MEDS: Allopurinol 100 MG TAB 400 MG PO (08:34)
[2022-06-23] MEDS: Losartan 25 MG TAB 75 MG PO (08:34)
[2022-06-23] MEDS: Aspirin E.C. 81 MG TABEC PO (08:35)
[2022-06-23] MEDS: Insulin Aspart 300 UNITS/3 ML PEN SC (08:35)
[2022-06-23] MEDS: Multivitamin TAB 1 TAB PO (08:35)
[2022-06-23] MEDS: Carvedilol 12.5 MG TAB PO (08:35)
--- NOTE | 2022-06-23 11:00 | W.PM.DS.N ---
Date of service: 06/23/22 Time of Service: 11:00 DS: Diagnosis Discharge Diagnosis (1) Acute bronchitis: Status: Acute Asessment and Plan: respiratory status stable, oxygenating well on room air. will complete 5 days of antibiotics. 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 Not in acute flare per CPK. Follow up as outpatient. Am cortisol is not c/w adrenal insufficiency. (7) Barretts esophagus: Status: Acute (8) Chronic anemia: Status: Chronic (9) Elevated troponin: Status: Acute Asessment and Plan: Not ACS. This is likely a product of his myopathy and in setting of CKD. troponins remain flat, no chest pain No further ischemic workup on this admission. defer to outpatient team (10) HFrEF (heart failure with reduced ejection fraction): Status: Acute Asessment and Plan: echo shows EF 35% (11) Diabetes mellitus: (12) Fever: Status: Acute Asessment and Plan: blood cultures remain negative. Suspect bronchitis due to a viral illness vs a bacterial process since he seems to have gotten better with antibiotics. expanded respiratory panel. will discharge home on oral abx to complete a 5 day course. (13) Thyroid nodule: Status: Acute Asessment and Plan: will need outpatient follow up Discharge Plan Disposition Patient Disposition: Home Condition: Improving Discharge Details Reason For Visit: Fever Admit Date/Time: 06/21/22 01:21 Admit Provider: Richard Rodriguez Attending Provider: Richard Rodriguez Primary Care Provider: Jazmine Baer V Hospital Course Hospital Course: This is a medically complex 62 yo with a history of DM, HTN, CKD, several elevated troponin encounters, mild , cardiomyopathy (HFrEF 35%), autoimmune-statin induced myopathy, cirrhosis, Barretts esophagus and chronic anemia and thrombocytopenia who presents with significant fevers. Her was admitted here 04/13/22-04/19/22 for a RLE cellulitis. He presented to the ED with fevers, weakness and cough. He notes these symptoms for 1 week now. His work up in the ED was significant for stable anemia and thrombocytopenia, a normal lactate, stable Cr but with an elevated bnp from baseline and an elevated troponin. [facility] cardiology was consulted and did not feel strongly regarding urgent cath and did not recommend heparin given thrombocytopenia. [facility] cardiology recommended trending the troponin and EKG, getting and echo, diuresis and to continue home coreg if BP can toelrate. He also had a CTPE which did find a thyroid mass (16mm) that is not present on a prior CT from 2013 with no PE and normal appearing lung parenchyma. His last visit with rheumatology is from 06/19/22. He receives IVIG monthly as well as 500mg Solu medrol monthly. He did not have a documented fever at the time of this visit.? He underwent bone marrow biopsy 9 days ago that was reportedly non eventful. His cough is not productive, he has some SOB with normoxia. There are no other clear sources of potential infection. He was admitted to hospitalist services for further monitoring. He remained on ceftriaxone and doxycycline with improvement in his symptoms. There was no other fevers. All cultures remained negative. Was noted to have an elevated troponin which did remain flat. This was thought to be due secondary to myopathy in the setting of chronic kidney disease. He did not have any acute ST segment changes on his EKG chest pain or significant changes from previous echocardiogram. Will defer further outpatient work-up to his primary care provider. Chronic diseases such as thrombocytopenia cirrhosis of the liver chronic anemia remained stable while hospitalized. He was eating and drinking bowels and bladder functioning he felt discharge at this point was appropriate. He was actually can to be discharged the night prior but did not have transportation so remained overnight without issue. He will be discharged home on 3 more days of antibiotics to complete a 5-day course as previously planned. Should follow-up outpatient with his primary care provider. There has been no medication changes to his previously prescribed medications with the exception of the addition of 3 more days of antibiotics. Discharge discussed with Dr. Sunny Golden Meds and New Rx's Prescriptions: New doxycycline hyclate 100 mg capsule 100 mg PO BID Qty: 7 0RF cefpodoxime 200 mg tablet 200 mg PO BID Qty: 7 0RF Rx Instructions: must administer with a meal/food Continued Aranesp (in polysorbate) 60 mcg/mL solution 60 mcg IV Q2W PRN Label Comments: Through [facility] Outpatient Infusion Venofer 200 mg iron/10 mL solution 300 mg IV .Q30 PRN Label Comments: Through [facility] Outpatient Infusion Rx Instructions: administer over 30 mins carvedilol 12.5 mg tablet 12.5 mg PO BID Qty: 180 3RF Rx Instructions: must administer with a meal/food GAMAGUARD IVIG MONTHLY FOR 2 DAYS ondansetron [Zofran ODT] 4 mg tablet,disintegrating 4 mg PO BID PRN epoetin matt 20,000 unit/mL solution 20,000 unit subcut .every other week Solu-Medrol (PF) 125 mg/2 mL recon soln 125 mg IM MONTHLY Humalog U-100 Insulin 100 unit/mL cartridge 100 unit subcut AC Label Comments: sliding scale Rx Instructions: as directed multivitamin [Daily Multi-Vitamin] 1 EACH tablet 1 tab PO DAILY allopurinol 100 mg tablet 400 mg PO DAILY aspirin 81 mg Tablet,Delayed Release (Dr/Ec) 81 mg PO DAILY Qty: 100 0RF magnesium oxide 400 mg (241.3 mg magnesium) Tablet 400 mg PO BID Qty: 60 1RF canagliflozin 100 mg tablet 100 mg PO DAILY Qty: 30 1RF insulin glargine [Lantus Solostar U-100 Insulin] 100 UNIT/1 ML insulin pen 50 unit SQ HS Qty: 0 0RF nitroglycerin 0.4 mg tablet, sublingual 0.4 mg sublingual Q5-15M PRNQty: 30 0RF Rx Instructions: do not exceed 3 doses per episode losartan 50 mg tablet 75 mg PO DAILY furosemide 40 mg tablet 40 mg PO DAILY Discharge Instructions Instructions: Heart Failure (DC), Fever in Adults (ED), Acute Bronchitis (ED), Thyroid Nodules (DC) Stand Alone Forms: Nursing Discharge Form Referrals: Jazmine Baer MD [Primary Care Provider] - (Please call Saturday to make an Appointment in the next 10-14 days) Fiona Cruz MD [ [facility] STAFF PHYSICIAN] - (Please call Saturday to make an Appointment ) Activity:: Activity as Tolerated Equipment/Supplies:: No Equipment Needed Diet:: Low Sodium Discharge Orders Discharge Orders: Discharge Order (Routine); Ordered 06/23/22 Ordered By: Shital Crespo Discharge Data Discharge Date/Time-TO BE ENTERED AT DEPARTURE: 06/23/22 11:32 DS: Summary Time Spent with Patient providing and/or coordinating discharge services: Less than 30 minutes Status at Discharge Functional status at discharge: independent ambulation Overall status at discharge: patient is progressing back to baseline Mental Status: mental status grossly normal Speech and Movement: speech and movement normal Mood: congruent mood Affect: normal affect Exam Const General: cooperative, comfortable and no acute distress Nutritional Appearance: obese Orientation: alert, awake and oriented x3 HENMT Head: normal to inspection, normocephalic and atraumatic Mouth: oral mucosae normal Chest Chest: normal inspection of the chest Resp Effort & Inspection: normal respiratory effort Auscultation: clear to auscultation bilaterally and no wheezes Cardio Rate: regular rate Rhythm: regular rhythm GI Inspection: normal to inspection Palpation: soft Neuro General: patient alert, patient awake, patient oriented x3 and no focal motor deficits Extrem General: normal to inspection Psych Mental Status: mental status grossly normal Speech and Movement: speech and movement normal Mood: congruent mood Affect: normal affect DS: Data Vitals/I&O Vitals and I&O: Vital Signs Temperature 36.5 C 06/23/22 07:35 Temperature Source Tympanic 06/23/22 07:35 Pulse 72 06/23/22 07:35 Pulse Rhythm Regular 06/23/22 08:00 Respiratory Rate 18 06/23/22 07:35 Respiratory Effort 06/23/22 08:00 Respiratory Depth Normal 06/23/22 08:00 Respiratory Pattern Normal 06/23/22 08:00 Blood Pressure 153/79 H 06/23/22 07:35 Blood Pressure Mean 69 06/21/22 02:16 Blood Pressure Position Supine 06/20/22 20:57 Pulse Oximetry 99 06/23/22 07:35 Oxygen Delivery Method Room Air 06/23/22 07:35 Oxygen Flow Rate 0 06/23/22 07:35 Pain Level 0 06/23/22 07:35 Comment 06/23/22 03:23 Intake & Output 06/22/22 06/22/22 06/23/22 11:59 23:59 11:59 Intake Total 540 / 880 340 / 880 450 / 450 Output Total 950 / 2250 1300 / 2250 650 / 650 Balance -410 / -1370 -960 / -1370 -200 / -200 Weight 118.4 kg Intake: IV 180 / 280 100 / 280 150 / 150 Oral 360 / 600 240 / 600 300 / 300 Output: Urine 950 / 2250 1300 / 2250 650 / 650 Other: Urine Color Yellow Yellow Yellow Urine Appearance Clear Clear Clear Urine Odor Normal Comment toilet insert. toilet insert empited. Stool Characteristics Soft Voiding Methods Toilet Toilet Toilet Data Completed and Pending Labs on day of discharge: Labs from last 24 hours 06/23/22 06/23/22 06/23/22 Unknown 05:47 05:47 WBC 6.32 RBC 3.08 L Hgb 10.0 L Hct 30.9 L MCV 100 H MCH 32.5 MCHC 32.4 RDW 16.2 H Plt Count 70 L MPV 11.3 H Immature Gran % 0.8 Neutrophils % 78.2 Lymphocytes % 9.2 Monocytes % 10.4 Eosinophils % 0.9 Basophils % 0.5 Nucleated RBC % 0.0 Absolute Neutrophils 4.94 Absolute Lymphocytes 0.58 L Absolute Monocytes 0.66 Absolute Eosinophils 0.06 Absolute Basophils 0.03 RBC Morphology Normal Sodium 138 Potassium 4.0 Chloride 105 Carbon Dioxide 26.3 Anion Gap 6.7 BUN 77 H Creatinine 1.6 H Est GFR (CKD-EPI 2020) 47.82 Glucose 142 H Calcium 8.7 Magnesium 2.2 C-Reactive Protein 5.10 H B. divergens/MO-1 PCR Babesia duncani (PCR) Babesia microti DNA PCR Lyme Disease Antibody E.chaffeensis DNA (PCR) E.ewingii/canis DNA PCR E.muris eauclairensis (PCR) A. phagocytophilum (PCR) Blood B. miyamotoi (PCR) Add-On Test Request Pending 06/22/22 06/22/22 06:50 06:50 WBC RBC Hgb Hct MCV MCH MCHC RDW Plt Count MPV Immature Gran % Neutrophils % Lymphocytes % Monocytes % Eosinophils % Basophils % Nucleated RBC % Absolute Neutrophils Absolute Lymphocytes Absolute Monocytes Absolute Eosinophils Absolute Basophils RBC Morphology Sodium Potassium Chloride Carbon Dioxide Anion Gap BUN Creatinine Est GFR (CKD-EPI 2020) Glucose Calcium Magnesium C-Reactive Protein B. divergens/MO-1 PCR Pending Babesia duncani (PCR) Pending Babesia microti DNA PCR Pending Lyme Disease Antibody Pending E.chaffeensis DNA (PCR) Pending E.ewingii/canis DNA PCR Pending E.muris eauclairensis (PCR) Pending A. phagocytophilum (PCR) Pending Blood B. miyamotoi (PCR) Pending Add-On Test Request DONE Preliminary micro results at discharge 06/20/22 22:15 Blood Culture - Preliminary Blood NO GROWTH 48 HOURS 06/20/22 21:55 Blood Culture - Preliminary Blood NO GROWTH 48 HOURS PFSH All Active Problems (Updated 06/22/22 @ 21:49 by Maureen Fletcher MD) Discharge planning issues (Acute) DVT prophylaxis (Acute) Acute bronchitis (Acute) Ulcer of foot (Acute) Thyroid nodule (Acute) Fever (Acute) HFrEF (heart failure with reduced ejection fraction) (Acute) Thrombocytopenia (Chronic) Acute on chronic renal insufficiency (Acute) Lower extremity cellulitis (Acute) Renal insufficiency (Chronic) Impacted cerumen of both ears (Acute) HTN (hypertension) (Chronic) Cirrhosis of liver (Chronic) Subclavian vein thrombosis (Acute) Myopathy (Acute) Barretts esophagus (Acute) Hearing deficit (Acute) Epistaxis (Acute) Chronic anemia (Chronic) Edema (Acute) Heart murmur, systolic (Acute) CALDERON (dyspnea on exertion) (Acute) Diastolic dysfunction (Acute) Excess ear wax (Acute) Weakness of both legs (Acute) Nocturnal cough (Acute) Medication monitoring encounter (Acute) Skin cancer, basal cell (Acute) face Elevated troponin (Acute) Medical History Basal cell carcinoma, face Cardiomyopathy Chronic kidney disease Diabetes mellitus Duodenitis DVT (deep venous thrombosis) Essential hypertension Gout Hypercholesterolemia 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 Sister Diabetes PATERNAL UNCLE Personal history of malignant neoplasm STOMACH Social History Smoking/Tobacco Use Status: Never Smoking risk assessment performed?: Yes Alcohol Intake: never Drug use: Never Substance use type: does not use Do you feel safe at home: Yes Do you feel safe in your relationship?: Yes Time Spent with Patient Time Spent with Patient: <45 minutes Time was spent: preparing to see the patient(eg.review tests), obtaining and/or reviewing separately otained hiistory, indepentently interpreting results and counseling the patient
[2022-06-23 11:09] LABS: Lab Add On Test DONE
[2022-06-23] MEDS: Heparin 500 UNITS/5 ML SYRINGE IV (11:15)
[2022-06-23 11:31] LABS: Troponin I 264 ng/L (<or=60)
--- NOTE | 2022-06-23 15:33 | PDOC.CMDIS ---
- If Service Date Differs Date of service: 06/23/22 Time of Service: 15:33 LACE Index Scoring Tool - Questions: Length of Stay (in days): 2 Acuity (Admit via E.D.?): Yes Comorbidities: Previous M.I., Diabetes w/o Complication, Congestive Heart Failure, Liver or Renal Disease E.D. Visits: 3 - Answers: Total Score: 13 Risk of Readmission: High Risk Care Management Discharge Reason for Hospitalization: Fever of unknown origin, Elevated troponin, Thrombocytopenia, Mass of thyroid gland Discharge Plan: Bucky will return home with no new services. His will drive him home via private vehicle. He will follow up with his PCP and discharge plan of care. Patient/Family Education Needs: Review discharge instructions and limitations, discussion of self care needs including ask me three.
[2022-06-24 16:29] LABS: Anaplasma phagocytophilum Negative (Negative); B. miyamotoi PCR Negative (Negative); Babesia divergens/MO-1 Negative (Negative); Babesia duncani Negative (Negative); Babesia microti Negative (Negative); Ehrlichia chaffeensis Negative (Negative); Ehrlichia ewingii/canis Negative (Negative); Ehrlichia muris eauclairensis Negative (Negative)
[2022-06-25 11:17] LABS: Lyme Ab w Rflx to Lyme Confirm Negative (Negative)
== END 2022-06-23 11:32 | disposition home or self-care (01) ==
LOC: ER 06-21 02:06 → MS 06-21 02:38
PROVIDERS: Internal Medicine; Physician Assistant; Student in an Organized Health Care Education/Training Program; Admitting Provider Family Medicine; Emergency Provider Student in an Organized Health Care Education/Training Program; PCP Family Medicine; Visit Provider Family Medicine
DX: J20.9 Acute bronchitis, unspecified (principal); I44.7 Left bundle-branch block, unspecified; I50.22 Chronic systolic (congestive) heart failure; E04.1 Nontoxic single thyroid nodule; D69.6 Thrombocytopenia, unspecified; K74.69 Other cirrhosis of liver; G72.0 Drug-induced myopathy; I13.0 Hypertensive heart and chronic kidney disease with heart failure and stage 1 through stage 4 chronic kidney disease, or unspecified chronic kidney disease; E11.22 Type 2 diabetes mellitus with diabetic chronic kidney disease; K22.70 Barrett's esophagus without dysplasia; D64.9 Anemia, unspecified; R74.8 Abnormal levels of other serum enzymes; Z79.01 Long term (current) use of anticoagulants; N18.32 Chronic kidney disease, stage 3b; Z79.4 Long term (current) use of insulin; I35.0 Nonrheumatic aortic (valve) stenosis; I42.9 Cardiomyopathy, unspecified; N28.9 Disorder of kidney and ureter, unspecified; R53.1 Weakness; M10.9 Gout, unspecified; I25.2 Old myocardial infarction; Z86.711 Personal history of pulmonary embolism; E78.00 Pure hypercholesterolemia, unspecified; E66.9 Obesity, unspecified; T46.6X5A Adverse effect of antihyperlipidemic and antiarteriosclerotic drugs, initial encounter; Z20.822 Contact with and (suspected) exposure to COVID-19; E11.621 Type 2 diabetes mellitus with foot ulcer; L97.519 Non-pressure chronic ulcer of other part of right foot with unspecified severity
CPT/HCPCS: 71275; 80048; 80053; 80076; 82533; 82550; 87040; 87632; 87637; 87798; 93005; 93306; 94640; 96361; 96365; 96366; 96367; 96372; 96375; 99285; 81003; 81015; 83605; 83735; 83880; 84484; 85025; 85610; 86140; 86618; 87070; 87086; 87205; 93010; 99223; 99232; 99238; G0378; J0696; J2930; J3490; J7620

== ENCOUNTER 2022-07-10 02:31 | Outpatient (RCR) | payer MEDICARE, SELFPAY ==
[2022-06-10 00:09] VITALS: BP 120/70; PULSE 62; RESP 17; TEMP 36.5
[2022-06-12 07:26] LABS: Abs Immature Grans 0.03 10^3/uL (0.0-0.06); Absolute Basophil Count 0.07 10^3/uL (0.0-0.2); Absolute Eosinophil Count 0.37 10^3/uL (0.0-0.7); Absolute Lymphocyte Count 0.59 10^3/uL (1.2-3.4); Absolute Monocyte Count 0.51 10^3/uL (0.1-0.8); Absolute Neutrophil Count 3.13 10^3/uL (1.2-6.7); Basophils % 1.5; Eosinophils % 7.9; HCT 36.6 % (40.0-50.0); HGB 11.9 g/dL (13.5-17.5); Immature Grans % 0.6; Lymphocytes % 12.6; MCH 32.5 pg (27.0-33.0); MCHC 32.5 % (32.0-36.0); MCV 100 fL (80-95); MPV 11.8 fL (8.0-11.0); Monocytes % 10.9; Neutrophils % 66.5; RBC 3.66 10^6/uL (4.36-5.78); RDW 15.2 % (11.8-14.1); RDW-SD 56.5 fL
[2022-06-12 07:49] LABS: C-Reactive Protein 1.55 mg/dL (0.0-0.3); CREATININE 1.8 mg/dL (0.70-1.30); Creatine Kinase 34 U/L (39-308); Estimated GFR 41.51 (mL/min/1.73m2)
[2022-06-12 07:51] LABS: Platelet Count 82 10^3/uL (130-400)
[2022-06-12] MEDS: methylPREDNISolone SUCC 500 MG in Normal Saline 100 ML 216 MG IVPB (08:01)
[2022-06-12] MEDS: Normal Saline Flush 10 ML SYR IVP (08:02)
[2022-06-12 08:40] VITALS: BP 107/67; PULSE 64; RESP 18; TEMP 37.1; O2SAT 98
[2022-06-12] MEDS: IMMUNE GLOBULIN 10 GM/100 ML BTL IVPB (08:41)
[2022-06-12 08:59] VITALS: BP 116/66; PULSE 68; RESP 18; TEMP 36.1; O2SAT 98
[2022-06-12 09:15] VITALS: BP 117/72; PULSE 65; RESP 18; TEMP 36.1; O2SAT 98
[2022-06-12] MEDS: IMMUNE GLOBULIN 40 GM/400 ML BTL IVPB ×3 (09:25→11:28)
[2022-06-12 09:45] VITALS: BP 127/72; PULSE 64; RESP 18; TEMP 36.9; O2SAT 99
[2022-06-12 10:15] VITALS: BP 127/75; PULSE 65; RESP 18; TEMP 36.4; O2SAT 99
[2022-06-12 10:45] VITALS: BP 151/79; PULSE 67; RESP 18; TEMP 37.2; O2SAT 100
[2022-06-13] MEDS: IMMUNE GLOBULIN 10 GM/100 ML BTL 1.23 GM IVPB (07:38)
[2022-06-13] MEDS: Normal Saline Flush 10 ML SYR IVP (07:39)
[2022-06-13 07:47] VITALS: BP 135/84; PULSE 73; RESP 18; TEMP 36.6; O2SAT 97
[2022-06-13 08:00] VITALS: BP 127/67; PULSE 59; TEMP 36.5; O2SAT 98
[2022-06-13 08:15] VITALS: BP 135/70; PULSE 59; TEMP 36.4; O2SAT 99
[2022-06-13] MEDS: IMMUNE GLOBULIN 40 GM/400 ML BTL IVPB ×3 (08:26→10:27)
[2022-06-13 08:43] VITALS: BP 137/70; PULSE 55; RESP 18; TEMP 36.4; O2SAT 97
[2022-06-13 09:13] VITALS: BP 138/63; PULSE 60; RESP 18; TEMP 36.4; O2SAT 99
[2022-06-13 09:42] VITALS: BP 143/73; PULSE 54; RESP 18; TEMP 36.4; O2SAT 99
[2022-07-09 07:24] LABS: Abs Immature Grans 0.01 10^3/uL (0.0-0.06); Absolute Basophil Count 0.05 10^3/uL (0.0-0.2); Absolute Eosinophil Count 0.37 10^3/uL (0.0-0.7); Absolute Lymphocyte Count 0.45 10^3/uL (1.2-3.4); Absolute Monocyte Count 0.38 10^3/uL (0.1-0.8); Absolute Neutrophil Count 3.76 10^3/uL (1.2-6.7); Eosinophils % 7.4; HCT 35.8 % (40.0-50.0); HGB 11.3 g/dL (13.5-17.5); Immature Grans % 0.2; MCH 32.3 pg (27.0-33.0); MCHC 31.6 % (32.0-36.0); MCV 102 fL (80-95); MPV 11.6 fL (8.0-11.0); Monocytes % 7.6; Neutrophils % 74.8; RDW 15.6 % (11.8-14.1); RDW-SD 58.4 fL; WBC 5.02 10^3/uL (4.4-10.8)
[2022-07-09] MEDS: Normal Saline Flush 10 ML SYR IVP (07:32)
[2022-07-09 07:35] VITALS: BP 135/79; PULSE 70; RESP 18; TEMP 36.6; O2SAT 100
[2022-07-09 07:39] LABS: C-Reactive Protein 1.88 mg/dL (0.0-0.3); CREATININE 1.9 mg/dL (0.70-1.30); Creatine Kinase 24 U/L (39-308); Estimated GFR 38.91 (mL/min/1.73m2)
[2022-07-09 07:41] LABS: Diff Comment Diff Reviewed; Platelet Count 73 10^3/uL (130-400); RBC Morphology Normal
[2022-07-09] MEDS: methylPREDNISolone SUCC 500 MG in Normal Saline 100 ML 216 MG IVPB (08:01)
[2022-07-09] MEDS: IMMUNE GLOBULIN 10 GM/100 ML BTL IVPB (08:33)
[2022-07-09 08:50] VITALS: BP 126/74; PULSE 62; RESP 18; TEMP 36.7; O2SAT 100
[2022-07-09 09:05] VITALS: BP 121/69; PULSE 70; RESP 18; TEMP 36.6; O2SAT 99
[2022-07-09] MEDS: IMMUNE GLOBULIN 40 GM/400 ML BTL IVPB ×3 (09:19→11:24)
[2022-07-09 09:35] VITALS: BP 120/72; PULSE 63; RESP 18; TEMP 36.6; O2SAT 100
[2022-07-09 10:05] VITALS: BP 138/74; PULSE 65; RESP 18; TEMP 37.4; O2SAT 100
[2022-07-09 10:35] VITALS: BP 135/76; PULSE 62; RESP 18; TEMP 36.9; O2SAT 100
[2022-07-10 07:08] VITALS: BP 126/74; PULSE 79; RESP 18; TEMP 36.6; O2SAT 97
[2022-07-10] MEDS: Normal Saline Flush 10 ML SYR IVP (07:09)
[2022-07-10] MEDS: IMMUNE GLOBULIN 10 GM/100 ML BTL IVPB (07:37)
[2022-07-10 07:55] VITALS: BP 125/72; PULSE 68; RESP 18; TEMP 36.9; O2SAT 97
[2022-07-10 08:10] VITALS: BP 117/70; PULSE 67; RESP 18; TEMP 36.5; O2SAT 99
[2022-07-10] MEDS: IMMUNE GLOBULIN 40 GM/400 ML BTL IVPB ×3 (08:21→10:20)
[2022-07-10 08:40] VITALS: BP 130/74; PULSE 64; RESP 18; TEMP 36.9; O2SAT 99
[2022-07-10 09:10] VITALS: BP 127/77; PULSE 67; RESP 18; TEMP 36.7; O2SAT 99
[2022-07-10 09:40] VITALS: BP 117/72; PULSE 75; RESP 18; TEMP 36.6; O2SAT 99
== END 2022-07-10 23:59 | disposition home or self-care (01) ==
LOC: INF 02:31
PROVIDERS: Family Medicine; PCP Family Medicine; Visit Provider Nurse Practitioner Acute Care
DX: D50.9 Iron deficiency anemia, unspecified (principal); D63.1 Anemia in chronic kidney disease; Z79.52 Long term (current) use of systemic steroids; M60.9 Myositis, unspecified; T46.6X5D Adverse effect of antihyperlipidemic and antiarteriosclerotic drugs, subsequent encounter
CPT/HCPCS: 36591; 82550; 96365; 96366; 96372; 82565; 85025; 86140; J0881; J1459; J2930

== ENCOUNTER → 2022-07-16 13:01 | Outpatient (BNVA) | payer MEDICARE, SELFPAY | PROVIDERS: PCP Family Medicine; Visit Provider Internal Medicine Cardiovascular Disease | DX: I42.0 Dilated cardiomyopathy (principal); R77.8 Other specified abnormalities of plasma proteins; R01.1 Cardiac murmur, unspecified; I10 Essential (primary) hypertension; I26.99 Other pulmonary embolism without acute cor pulmonale; I50.20 Unspecified systolic (congestive) heart failure | CPT/HCPCS: 99214 ==

== ENCOUNTER 2022-07-16 17:42 | Inpatient (IN) | payer MEDICARE, SELFPAY ==
[2022-07-16] VITALS (23 sets, daily range): BP systolic 110–153; BP diastolic 41–121; PULSE 67–92; RESP 10–25; TEMP 36.7–37.2; O2SAT 95–99
--- NOTE | 2022-07-16 18:00 | RT.EKG_ITS ---
APPROVED REPORT Exam: Resting ECG Reason for Exam: SOB Patient Location: E HR:81 bpm ECG Measurements Heart Rate 81 AXIS RI 155 P 48 QRSd 115 QRS -16 QT 405 T 163 QTc 470 Conclusion Sinus rhythm...normal P axis, V-rate 60- 99 Probable left atrial enlargement...P >50mS, <-0.10mV V1 Incomplete left bundle branch block...QRSd>110mS, terminal axis(-90,-1) LVH with secondary repolarization abnormality...multi-LVH criteria, abnrm ST-T
--- NOTE | 2022-07-16 18:00 | DI.RAD_ITS ---
Exam(s) XR PORTABLE CHEST AP EXAM: XR PORTABLE CHEST AP CLINICAL HISTORY: PUI, Cough, fever. TECHNIQUE: 2D digital imaging was performed. COMPARISON: CR XR CHEST 2V PA LATERAL from 04/11/2022 FINDINGS: Single AP portable view. Heart size is mildly prominent, unchanged.. The mediastinum is not widened. Lungs are clear. No infiltrates nor obvious pleural effusions. No nodules evident. Distal aspect of the right supra clavi in Port-A-Cath is in the SVC. IMPRESSION: No acute pulmonary findings on this single AP portable view of the chest. DATA REPOSITORY: RADIATION DOSE DELIVERED:
--- NOTE | 2022-07-16 18:11 | ED.GENADUL_ITS ---
Discharge Plan Disposition Patient Disposition: Admit to [facility] Condition: Serious Discharge Details Clinical Impression: Non-ST elevation MS (NSTEMI), HFrEF (heart failure with reduced ejection fraction) Primary Care Provider: Jazmine Baer V ED Provider: Grecia Brizuela Home Meds and New Rx's Prescriptions: No Action Aranesp (in polysorbate) 60 mcg/mL solution 60 mcg IV Q2W PRN Label Comments: Through [facility] Outpatient Infusion Venofer 200 mg iron/10 mL solution 300 mg IV .Q30 PRN Label Comments: Through [facility] Outpatient Infusion Rx Instructions: administer over 30 mins insulin glargine [Lantus Solostar U-100 Insulin] 100 unit/mL (3 mL) insulin pen See Rx Instructions subcut HS Rx Instructions: 25-30 U daily subcutaneously bedtime; [place] Saline Gel 1 applic topical QID PRN Rx Instructions: while awake carvedilol 12.5 mg tablet 12.5 mg PO BID Qty: 180 3RF Rx Instructions: must administer with a meal/food Coricidin HBP Chest Oliver-Cough 10-200 mg capsule 1 tab-cap PO ONCE PRN GAMAGUARD IVIG See Rx Instructions .ROUTE .COMPLEX Rx Instructions: Patient seen at [facility] for IVIG infusions 2x a month ondansetron [Zofran ODT] 4 mg tablet,disintegrating 4 mg PO BID PRN epoetin matt 20,000 unit/mL solution 20,000 unit subcut .every other week Solu-Medrol (PF) 125 mg/2 mL recon soln 125 mg IM MONTHLY Humalog U-100 Insulin 100 unit/mL cartridge 100 unit subcut AC Label Comments: sliding scale Rx Instructions: as directed multivitamin [Daily Multi-Vitamin] 1 EACH tablet 1 tab PO DAILY allopurinol 100 mg tablet 400 mg PO DAILY aspirin 81 mg Tablet,Delayed Release (Dr/Ec) 81 mg PO DAILY Qty: 100 0RF magnesium oxide 400 mg (241.3 mg magnesium) Tablet 400 mg PO BID Qty: 60 1RF canagliflozin 100 mg tablet 100 mg PO DAILY Qty: 30 1RF nitroglycerin 0.4 mg tablet, sublingual 0.4 mg sublingual Q5-15M PRNQty: 30 0RF Rx Instructions: do not exceed 3 doses per episode losartan 50 mg tablet 75 mg PO DAILY furosemide 40 mg tablet 40 mg PO DAILY doxycycline hyclate 100 mg capsule 100 mg PO BID Qty: 7 0RF Medical Decision Making 62-year-old male presents to the ER with chief complaint of cough, shortness of breath and fever which she reports began Saturday. Reports 2 weeks ago he was diagnosed with bronchitis had a routine cardiology appointment today prior to arrival and was sent here for further eval. He reports intermittent substernal chest pain that radiates up into his right neck which occurred prior to arrival which was relieved with Tylenol. He reports he has had a total of 3-1/2 g of Tylenol over the last 24 hours prior to arrival. He does have a past medical history of obesity, PE, myopathy, NSTEMI, hypercholesterolemia hypertension, diabetes mellitus, DVT chronic kidney disease cardiomyopathy and facial basal cell carcinoma. Work-up ordered including CBC CMP serial troponins, D-dimer, proBNP chest x-ray and fluid swab. Differential diagnosis includes but not limited to worsening CHF exacerbation, flu COVID, continued URI, pneumonia, CAD 1899: Critical value troponin 2,252, proBNP 12,925, D-dimer is also elevated at 1,758, platelets are 80 and sodium 131, glucose 161, AST 60 ALT 49 alk phos 169 EKG and x-ray forwarded to [facility] cardiology will consult with cardiology. Heparin drip ordered and 243 of aspirin. Patient does have 81 mg of aspirin on his med list. COVID flu RSV pending at this time. GFR is 38 however the benefits outweigh the risks for CT imaging to rule out PE. And to evaluate right heart strain. 1908: Spoke with [facility] transfer center for transfer requesting to speak with cardiology, 1930: Spoke with Dr Mcelroy, with Cardiology at [facility] who recommends plavix, Heparin, ASA, and call back if he becomes hemodynamically unstable or has arrhythmias. Will call [facility] for consultation. Transfer center did say to call back in the a.m. to see if there bed capacity has changed. At this time [facility] is at bed capacity. 1939: Will consult with [facility] Cardiology. Plavix 300mg and PT, PTT added on to labs. 1943: [facility] transfer center contacted, Spoke with Kimberly at the transfer center. 2005: Dr. Vasques with cardiology at [facility], they are at capacity, they recommend calling tomorrow AM or if patient decompensates to call back, He does recommend Lasix or Nitro if his pressure remains stable. 2016: Will consult with Hospitalist and order, Furosemide 40mg IV. 2033: Spoke with Dr. Chiu, he agrees to come evaluate the patient. Informed patient on plan of care he verbalized understanding. 2102: [facility] report of CT chest shows no PE no aortic aneurysm no dissection no pneumothorax no pleural effusion. Partially visualized spleen is enlarged measuring up to 17 cm. 2123: APTT 100.9 seconds, instructed RN to follow protocol and decrease the heparin infusion by 250 units an hour. 2131: Dr. Chiu here at [facility] for eval. Repeat APtt, ordered to verify level. Second troponin elevated at 2946. Upon further questioning, patient did have CP 2 days ago and took 2 nitro at that time. Plan is for admission patient remained hemodynamically stable throughout the remainder of his stay will be transported up to the ICU. This text was generated using [employer] system, please disregard any oddities of phrase or misspellings. Medical Records Medical records reviewed: Yes I reviewed the patient's medical records. 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 He is chronically immunosuppressed does have a history of myopathy is on steroids and immunosuppressants. Echocardiogram on 06/21/2022 which shows a decreased ejection fraction of 35%, mild aortic stenosis, trace aortic regurgitation, trace to mild mitral regurgitation, trace to mild tricuspid regurgitation trace pulmonic regurgitation. Imaging Data Radiologic Study: Imaging: CT Scan Radiologist's impression: CT Chest PE VRAD Report: FINDINGS: Tubes, catheters and devices: A right-sided chest port is noted in place. Pulmonary arteries: No pulmonary emboli identified. Aorta: No aortic aneurysm. No aortic dissection. Lungs: No consolidation. No masses. Pleural spaces: No pneumothorax. No pleural effusion. Heart: No cardiomegaly. No pericardial effusion. Lymph nodes: No enlarged lymph nodes. Spleen: The partially visualized spleen is enlarged measuring up to 17 cm in AP dimension. Bones/joints: No acute fracture. IMPRESSION: 1. No pulmonary embolism seen. 2. No significant consolidation. 3. Splenomegaly partially visualized. Thank you for allowing us to participate in the care of your patient. Dictated and Authenticated by: Radha Oleary MD Lab Data Lab results reviewed: Yes I reviewed the patient's lab results. Labs: 07/16/22 20:40 Blood Blood Culture - Pending 07/16/22 20:21 Blood Blood Culture - Pending Laboratory Tests Range/Units 07/16/22 07/16/22 07/16/22 18:17 18:17 18:17 WBC (4.4-10.8) 10^3/uL 4.72 RBC (4.36-5.78) 10^6/uL 3.40 L Hgb (13.5-17.5) g/dL 11.0 L Hct (40.0-50.0) % 34.2 L MCV (80-95) fL 101 H MCH (27.0-33.0) pg 32.4 MCHC (32.0-36.0) % 32.2 RDW (11.8-14.1) % 15.8 H Plt Count (130-400) 10^3/uL 80 L MPV (8.0-11.0) fL 11.4 H Immature Gran % 0.4 Neutrophils % 84.0 Lymphocytes % 3.6 Monocytes % 11.4 Eosinophils % 0.2 Basophils % 0.4 Nucleated RBC % (0.0-0.3) % 0.0 Absolute Neutrophils (1.2-6.7) 10^3/uL 3.96 Absolute Lymphocytes (1.2-3.4) 10^3/uL 0.17 L Absolute Monocytes (0.1-0.8) 10^3/uL 0.54 Absolute Eosinophils (0.0-0.7) 10^3/uL 0.01 Absolute Basophils (0.0-0.2) 10^3/uL 0.02 RBC Morphology Normal D-Dimer (<500) ng/mlFEU Sodium (136-145) mmol/L 131 L Potassium (3.5-5.1) mmol/L 4.3 Chloride (98-107) mmol/L 99 Carbon Dioxide (21.0-32.0) mmol/L 22.4 Anion Gap (3-11) mmol/L 9.6 BUN (7-18) mg/dL 62 H Creatinine (0.70-1.30) mg/dL 1.9 H Est GFR (CKD-EPI 2020) (mL/min/1.73m2) 38.91 Glucose (74-106) mg/dL 161 H Calcium (8.5-10.1) mg/dL 8.8 Total Bilirubin (0.2-1.0) mg/dL 0.9 AST (15-37) U/L 60 H ALT (16-63) U/L 49 Alkaline Phosphatase (46-116) U/L 169 H Troponin I (<or=60) ng/L 2252 H* NT-Pro-B Natriuret Pep (<300) pg/mL 72276 H Total Protein (6.4-8.2) g/dL 8.8 H Albumin (3.4-5.0) g/dL 2.4 L Acetaminophen (10-30) ug/mL COVID-19 Source Nasopharynx SARS-CoV-2 (PCR) (Negative) Negative Influenza Type A (PCR) (Negative) Negative Influenza Type B (PCR) (Negative) Negative RSV (PCR) (Negative) Negative Range/Units 07/16/22 07/16/22 18:17 18:44 WBC (4.4-10.8) 10^3/uL RBC (4.36-5.78) 10^6/uL Hgb (13.5-17.5) g/dL Hct (40.0-50.0) % MCV (80-95) fL MCH (27.0-33.0) pg MCHC (32.0-36.0) % RDW (11.8-14.1) % Plt Count (130-400) 10^3/uL MPV (8.0-11.0) fL Immature Gran % Neutrophils % Lymphocytes % Monocytes % Eosinophils % Basophils % Nucleated RBC % (0.0-0.3) % Absolute Neutrophils (1.2-6.7) 10^3/uL Absolute Lymphocytes (1.2-3.4) 10^3/uL Absolute Monocytes (0.1-0.8) 10^3/uL Absolute Eosinophils (0.0-0.7) 10^3/uL Absolute Basophils (0.0-0.2) 10^3/uL RBC Morphology D-Dimer (<500) ng/mlFEU 1758 H Sodium (136-145) mmol/L Potassium (3.5-5.1) mmol/L Chloride (98-107) mmol/L Carbon Dioxide (21.0-32.0) mmol/L Anion Gap (3-11) mmol/L BUN (7-18) mg/dL Creatinine (0.70-1.30) mg/dL Est GFR (CKD-EPI 2020) (mL/min/1.73m2) Glucose (74-106) mg/dL Calcium (8.5-10.1) mg/dL Total Bilirubin (0.2-1.0) mg/dL AST (15-37) U/L ALT (16-63) U/L Alkaline Phosphatase (46-116) U/L Troponin I (<or=60) ng/L NT-Pro-B Natriuret Pep (<300) pg/mL Total Protein (6.4-8.2) g/dL Albumin (3.4-5.0) g/dL Acetaminophen (10-30) ug/mL 16 COVID-19 Source SARS-CoV-2 (PCR) (Negative) Influenza Type A (PCR) (Negative) Influenza Type B (PCR) (Negative) RSV (PCR) (Negative) HPI General Mode of arrival: ambulatory . Date/Time Provider Initiated Documentation: 07/16/22 17:44 . Limitations to Documentation: no limitations . Information obtained by: patient, RN notes reviewed and old records reviewed . HPI Narrative: 62-year-old male presents to the ER with chief complaint of cough, shortness of breath and fever which she reports began Saturday. Reports 2 weeks ago he was diagnosed with bronchitis had a routine cardiology appointment today prior to arrival and was sent here for further eval. He reports intermittent substernal chest pain that radiates up into his right neck which occurred prior to arrival which was relieved with Tylenol. He reports he has had a total of 3-1/2 g of Tylenol over the last 24 hours prior to arrival. He does have a past medical history of obesity, PE, myopathy, NSTEMI, hypercholesterolemia hypertension, diabetes mellitus, DVT chronic kidney disease cardiomyopathy and facial basal cell carcinoma. Related Data Home Medications Medication Instructions Recorded Confirmed Gamaguard Ivig See Rx Instructions .Route .COMPLEX 09/18/12 07/16/22 multivitamin (Daily Multi-Vitamin 1 tab PO DAILY 11/23/13 07/16/22 tablet) allopurinol 100 mg tablet 400 mg PO DAILY 04/10/21 07/16/22 aspirin 81 mg tablet,delayed 81 mg PO DAILY #100 tabs 04/12/21 07/16/22 release canagliflozin 100 mg tablet 100 mg PO DAILY #30 tabs 04/12/21 07/16/22 magnesium oxide 400 mg (241.3 mg 400 mg PO BID #60 tabs 04/12/21 07/16/22 magnesium) tablet nitroglycerin 0.4 mg sublingual 0.4 mg sublingual Q5-15M PRN #30 04/12/21 07/16/22 tablet tabs darbepoetin matt in polysorbat 60 60 mcg IV Q2W PRN 04/20/21 07/16/22 mcg/mL in polysorbate injection (Aranesp) iron sucrose 200 mg iron/10 mL 300 mg IV .Q30 PRN 04/20/21 07/16/22 intravenous solution (Venofer) epoetin matt 20,000 unit/mL 20,000 unit subcut .every other 04/24/21 07/16/22 injection solution week methylprednisolone sod suc(PF) 125 125 mg IM MONTHLY 04/24/21 07/16/22 mg/2 mL solution for injection (Solu-Medrol (PF)) ondansetron 4 mg disintegrating 4 mg PO BID PRN 04/24/21 07/16/22 tablet (Zofran ODT) carvedilol 12.5 mg tablet 12.5 mg PO BID #180 tabs 08/07/21 07/16/22 losartan 50 mg tablet 75 mg PO DAILY 04/11/22 07/16/22 furosemide 40 mg tablet 40 mg PO DAILY 06/20/22 07/16/22 doxycycline hyclate 100 mg capsule 100 mg PO BID #7 caps 06/23/22 07/16/22 dextromethorphan-guaifenesin 10 1 tab-cap PO ONCE PRN 07/16/22 07/16/22 mg-200 mg capsule (Coricidin HBP Chest Congestion-Cough) insulin glargine 100 unit/mL (3 See Rx Instructions subcut HS 07/16/22 07/16/22 mL) subcutaneous pen (Lantus Solostar U-100 Insulin) insulin lispro 100 unit/mL 100 unit subcut AC 07/16/22 07/16/22 subcutaneous cartridge (Humalog U-100 Insulin) sodium chloride-aloe vera nasal 1 applic topical QID PRN 07/16/22 07/16/22 gel ([place] Saline nasal gel) Previous Rx's Medication Instructions Recorded aspirin 81 mg tablet,delayed 81 mg PO DAILY #100 tabs 04/12/21 release canagliflozin 100 mg tablet 100 mg PO DAILY #30 tabs 04/12/21 magnesium oxide 400 mg (241.3 mg 400 mg PO BID #60 tabs 04/12/21 magnesium) tablet nitroglycerin 0.4 mg sublingual 0.4 mg sublingual Q5-15M PRN #30 04/12/21 tablet tabs carvedilol 12.5 mg tablet 12.5 mg PO BID #180 tabs 08/07/21 doxycycline hyclate 100 mg capsule 100 mg PO BID #7 caps 06/23/22 Allergies Allergy/AdvReac Type Severity Reaction Status Date / Time methotrexate Allergy Skin Rash Verified 07/16/22 19:37 morphine Allergy Itching Verified 07/16/22 19:37 [id number] Reductase Allergy NECROTIZING Verified 07/16/22 19:37 Inhibitor MYOPATHY [Efmssqt-Eax-Cuk Reductase Inhibitor] General Stated Complaint: RespSymp AURA: 3 Review of Systems All systems reviewed & are unremarkable except as noted in HPI and below Constitutional Constitutional: Reports as per HPI, Reports fever(s) and Reports weight loss (Intentional) ENT Ears, Nose, Mouth, and Throat: Denies otalgia and Denies sore throat Cardiovascular Cardiovascular: Reports as per HPI, Reports chest pain (Resolved with Tylenol), Denies pedal edema, Denies edema, Reports dyspnea and Reports dyspnea on exertion Respiratory Respiratory: Denies change in phlegm color, Reports cough, Denies hemoptysis, Reports dyspnea, Reports dyspnea on exertion, Denies stridor and Denies wheezing Gastrointestinal Gastrointestinal: Denies diarrhea, Denies nausea and Denies vomiting Genitourinary Genitourinary: Denies dysuria and Denies urinary hesitancy Allergic/Immunologic Allergic/Immunologic: Denies wheezing PFSH All Active Problems (Updated 07/16/22 @ 22:37 by Jayson Chiu MD) Heart failure (Acute) Non-ST elevation MS (NSTEMI) (Acute) Discharge planning issues (Acute) Encounter for deep vein thrombosis (DVT) prophylaxis (Acute) Acute bronchitis (Acute) Ulcer of foot (Acute) Thyroid nodule (Acute) Fever (Acute) HFrEF (heart failure with reduced ejection fraction) (Acute) Thrombocytopenia (Chronic) Acute on chronic renal insufficiency (Acute) Lower extremity cellulitis (Acute) Renal insufficiency (Chronic) Impacted cerumen of both ears (Acute) HTN (hypertension) (Chronic) Cirrhosis of liver (Chronic) Subclavian vein thrombosis (Acute) Myopathy (Acute) Barretts esophagus (Acute) Hearing deficit (Acute) Epistaxis (Acute) Chronic anemia (Chronic) Edema (Acute) Heart murmur, systolic (Acute) CALDERON (dyspnea on exertion) (Acute) Diastolic dysfunction (Acute) Excess ear wax (Acute) Weakness of both legs (Acute) Nocturnal cough (Acute) Medication monitoring encounter (Acute) Skin cancer, basal cell (Acute) face Elevated troponin (Acute) Medical History Basal cell carcinoma, face Cardiomyopathy Chronic kidney disease Diabetes mellitus Duodenitis DVT (deep venous thrombosis) Essential hypertension Gout Hypercholesterolemia 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 Sister Diabetes PATERNAL UNCLE Personal history of malignant neoplasm STOMACH Social History Smoking/Tobacco Use Status: Never Smoking risk assessment performed?: Yes Alcohol Intake: never Drug use: Never Substance use type: does not use Do you feel safe at home: Yes Do you feel safe in your relationship?: Yes Exam Narrative Exam Narrative: Constitutional: Alert and oriented x3. Appears stated age. Obese body habitus. Head: Normocephalic, no trauma. Eyes: Pupils PERRL, Red reflex noted, EOM's intact. Eyelids symmetrical without lesions, discharge, or swelling. ENT: Bilateral TM's WNL, External ear normal to inspection, no mastoid TTP, swelling, or erythema, Nasal turbinates WNL, no nasal discharge. Normal dentition, Posterior pharynx WNL, no exudate. Chest: RRR, Normal S1, S2, distal pulses intact. Nonpitting edema 1+ bilateral lower extremities. Patient denies any new swelling. Resp: Lungs clear to auscultation bilaterally, no wheezes, rales, or rhonchi. Dry cough. Abdomen: Soft, non-distended, Normoactive bowel sounds all 4 quads. Nontender to palpation all 4 quadrants Musculoskeletal: Normal gait, 5/5 strength to all four extremities. Skin: No suspicious rashes or lesions. Capillary refill less than 2 sec. Neurologic: Cranial nerves II-XII intact. Alert and oriented x 3. Motor: No deficits noted. Sensory: Intact bilaterally all 4 extremities. Hematologic/Lymphatic: No ecchymosis, no lymphadenopathy. Course Vital Signs Vital signs: Vital Signs Temperature 37.2 C 07/16/22 17:46 Pulse 92 H 07/16/22 17:46 Respiratory Rate 18 07/16/22 17:46 Blood Pressure 136/61 07/16/22 17:46 Pulse Oximetry 97 07/16/22 17:46 Temperature 37.2 C 07/16/22 17:46 Temperature Source Temporal Artery Scan 07/16/22 17:46 Pulse 92 H 07/16/22 17:46 Respiratory Rate 18 07/16/22 17:46 Respiratory Effort 07/16/22 17:51 Blood Pressure 136/61 07/16/22 17:46 Pulse Oximetry 97 07/16/22 17:46 Oxygen Delivery Method Room Air 07/16/22 17:46 Oxygen Flow Rate 0 07/16/22 17:46 Critical Care Time Critical Care Time Critical Care Time: Yes Total Critical Care Time: 55 Attestation: I spent greater than 35 minutes addressing this patient's acute life threatening illness. This time was spent engaged in actions directly related to the patient's care. Failure to initiate these interventions would have likely resulted in clinically significant or life threatening deterioration in the patients condition.
[2022-07-16 18:24] LABS: Abs Immature Grans 0.02 10^3/uL (0.0-0.06); Absolute Basophil Count 0.02 10^3/uL (0.0-0.2); Absolute Eosinophil Count 0.01 10^3/uL (0.0-0.7); Absolute Lymphocyte Count 0.17 10^3/uL (1.2-3.4); Absolute Monocyte Count 0.54 10^3/uL (0.1-0.8); Absolute Neutrophil Count 3.96 10^3/uL (1.2-6.7); Basophils % 0.4; Eosinophils % 0.2; HCT 34.2 % (40.0-50.0); Immature Grans % 0.4; Lymphocytes % 3.6; MCH 32.4 pg (27.0-33.0); MCHC 32.2 % (32.0-36.0); MCV 101 fL (80-95); MPV 11.4 fL (8.0-11.0); Monocytes % 11.4; Platelet Count 80 10^3/uL (130-400); RDW 15.8 % (11.8-14.1); RDW-SD 58.3 fL; WBC 4.72 10^3/uL (4.4-10.8)
[2022-07-16 18:51] LABS: ALT 49 U/L (16-63); AST 60 U/L (15-37); Albumin 2.4 g/dL (3.4-5.0); Alkaline Phosphatase 169 U/L (46-116); Anion Gap 9.6 mmol/L (3-11); BUN 62 mg/dL (7-18); Bilirubin, Total 0.9 mg/dL (0.2-1.0); CO2 22.4 mmol/L (21.0-32.0); CREATININE 1.9 mg/dL (0.70-1.30); Calcium 8.8 mg/dL (8.5-10.1); Chloride 99 mmol/L (98-107); Estimated GFR 38.91 (mL/min/1.73m2); Glucose 161 mg/dL (74-106); NT-proBNP 12925 pg/mL (<300); Potassium 4.3 mmol/L (3.5-5.1); Sodium 131 mmol/L (136-145); Total Protein 8.8 g/dL (6.4-8.2)
[2022-07-16 18:54] LABS: Troponin I 2252 ng/L (<or=60)
[2022-07-16 19:04] LABS: D-Dimer 1758 ng/mlFEU (<500)
--- NOTE | 2022-07-16 19:07 | DI.VRAD_ITS ---
PROCEDURE INFORMATION: Exam: XR Chest Exam date and time: 07/16/2022 6:14 PM Age: 62 years old Clinical indication: cough, fever TECHNIQUE: Imaging protocol: Radiologic exam of the chest. Views: 1 view. COMPARISON: CR XR CHEST 2V PA LATERAL 04/11/2022 1:15 PM FINDINGS: Tubes, catheters and devices: A right-sided chest port is noted with catheter seen in the SVC. Lungs: No significant consolidation. Pleural spaces: No pneumothorax. No pleural effusion seen. Heart/Mediastinum: Unremarkable. No cardiomegaly. Bones/joints: No evidence of acute osseous abnormality. IMPRESSION: No acute abnormality. Dictated and Authenticated by: Radha Sanabria MD. Ordering:ROCKY Paige MD
[2022-07-16 19:14] LABS: COVID-19 PCR Negative (Negative); Influenza A PCR Negative (Negative); Influenza B PCR Negative (Negative); RSV PCR Negative (Negative)
[2022-07-16] MEDS: Aspirin 81 MG CHEW 243 MG CH (19:14)
[2022-07-16 19:15] LABS: Source Nasopharynx
--- NOTE | 2022-07-16 19:15 | DI.CT_ITS ---
Exam(s) CT CHEST PE CTA EXAM: CT CHEST PE CTA CLINICAL HISTORY: SOB, CHF, Elevated Dimer, R/O PE. TECHNIQUE: Imaging Protocol: CT angiography of the chest was performed using pulmonary embolus chantal col. Multi planar reconstructions were performed. CONTRAST MATERIAL: Intravenous: Omnipaque 350 Contrast volume: 100 cc COMPARISON: CT CT CHEST PE CTA from 06/20/2022 FINDINGS: CHEST: There is a right sided Port-A-Cath. Its distal tip is in the lower SVC. PULMONARY ARTERIES: There are no intraluminal filling defects to suggest acute pulmonary emboli. LUNGS: There are no infiltrates nor evidence of pulmonary infarction.. There are no pleural effusions . MEDIASTINUM: There is no hilar nor mediastinal adenopathy. Prominent nodule in left thyroid gland not ed. Should be further studied with ultrasound. CARDIAC: Heart size is upper normal. There is no pericardial effusion.Caliber of the thoracic aorta is within normal limits. No evidence of aortic dissection. There is no significant shift of the inte rventricular septum. PARTIALLY VISUALIZED UPPERMOST ABDOMEN: Splenomegaly again noted. Also somewhat cirrhotic appearing liver. Also cholelithiasis noted. Visualized CBD not dilated. OSSEOUS: No significant osseous lesions.No fractures.. IMPRESSION: 1. No evidence of acute pulmonary emboli. No evidence of pulmonary infarction.No pleural effusions. No lung infiltrates. 2. Distal tip of the Port-A-Cath is in the lower SVC. 3. Splenomegaly again noted. Cholelithiasis noted. RADIATION DOSE DELIVERED: 772.78mGy.cm Total DLP DATA REPOSITORY: All CT scans at this facility are submitted to the National Radiology Data Registry (NRDR) Dose Index Registry (DIR) with the [employer] ([employer]). RADIATION OPTIMIZATION: All CT scans at this facility use at least one of these dose optimization te chniques: automated exposure control; mA and/or kV adjustment per patient size (includes targeted exa ms where dose is matched to clinical indication); or iterative reconstruction.
[2022-07-16 19:22] LABS: Acetaminophen 16 ug/mL (10-30)
[2022-07-16 19:30] LABS: Diff Comment PLT Morph Reviewed; RBC Morphology Normal
[2022-07-16] MEDS: Clopidogrel 300 MG TAB PO (20:01)
[2022-07-16] MEDS: Omnipaque 350 MG/ML 100 ML BTL IJ (20:03)
[2022-07-16] MEDS: Normal Saline Flush 10 ML SYR IVP (20:05)
[2022-07-16] MEDS: Normal Saline - Diluent 50 ML VIAL IJ (20:05)
--- NOTE | 2022-07-16 20:44 | DI.VRAD_ITS ---
PROCEDURE INFORMATION: Exam: CTA Chest With Contrast Exam date and time: 07/16/2022 7:53 PM Age: 62 years old Clinical indication: SOB, chf, elevated dimer, R/O pe TECHNIQUE: Imaging protocol: Computed tomographic angiography of the chest with contrast. 3D rendering (Not supervised by radiologist): MIP and/or 3D reconstructed images were created by the technologist. Radiation optimization: All CT scans at this facility use at least one of these dose optimization techniques: automated exposure control; mA and/or kV adjustment per patient size (includes targeted exams where dose is matched to clinical indication); or iterative reconstruction. Contrast material: OMNIPAQUE 350; Contrast volume: 100 ml; Contrast route: INTRAVENOUS (IV); COMPARISON: CT CHEST PE CTA 06/20/2022 11:15 PM FINDINGS: Tubes, catheters and devices: A right-sided chest port is noted in place. Pulmonary arteries: No pulmonary emboli identified. Aorta: No aortic aneurysm. No aortic dissection. Lungs: No consolidation. No masses. Pleural spaces: No pneumothorax. No pleural effusion. Heart: No cardiomegaly. No pericardial effusion. Lymph nodes: No enlarged lymph nodes. Spleen: The partially visualized spleen is enlarged measuring up to 17 cm in AP dimension. Bones/joints: No acute fracture. Soft tissues: Unremarkable. IMPRESSION: 1. No pulmonary embolism seen. 2. No significant consolidation. 3. Splenomegaly partially visualized. Dictated and Authenticated by: Radha Sanabria MD. Ordering:ROCKY Paige MD
[2022-07-16] MEDS: Furosemide 40 MG/4 ML VIAL IVP (20:51)
--- NOTE | 2022-07-16 20:52 | NUR.NOTE ---
R chest port accessed per provider ords. [id number] power lock needle used. Sterile technique maintained. Pt tolerated procedure well. Per provider draw x1 set of blood cultures off of central line.
[2022-07-16] MEDS: Normal Saline-STERILE FIELD 0.9% 10 ML SYR (20:59)
[2022-07-16 21:14] LABS: INR 1.2 (0.9-1.1); Prothrombin Time 12.6 sec (9.3-11.0)
[2022-07-16 21:21] LABS: PTT Activated 100.9 sec (21.5-31.9)
[2022-07-16 21:33] LABS: Troponin I 2946 ng/L (<or=60)
[2022-07-16 22:04] LABS: PTT Activated 93.4 sec (21.5-31.9)
--- NOTE | 2022-07-16 22:17 | W.PM.HP.N ---
Date of service: 07/16/22 Time of Service: 22:19 Assessment and Plan Assessment and plan (1) Non-ST elevation [place] (NSTEMI): Status: Acute Assessment and plan: He had chest pain 2 days ago. He has elevated troponin at this time. Electrocardiogram does not show any acute changes. Emergency department contacted both [facility] and [facility] and neither had beds available. He has been given aspirin, clopidogrel and has been started on intravenous heparin. I discussed situation with him and his son. I offered to see if we can call other medical centers for transfer. He elected not to have us do that at this time. I told him that we could contact another Medical Center if situations became unstable. He agreed with that approach. Troponin will be rechecked tomorrow. I have continued his clopidogrel aspirin and heparin. Troponin will be rechecked tomorrow. Cardiology consultation has been requested for tomorrow although I do not know if cardiology is available here tomorrow. He wants to be full code. Kidney function will be rechecked tomorrow. (2) Thrombocytopenia: Status: Chronic Assessment and plan: This is stable at present time. His platelets will be rechecked tomorrow. (3) Heart failure: Status: Acute Assessment and plan: He has been given 40 mg of furosemide here in the emergency department. We will follow his urinary output. He does not appear to have significant congestion on his chest CT or chest x-ray. I do believe that he has cardiomegaly on the chest x-ray and chest CT. (4) Fever: Status: Acute Assessment and plan: He reported a fever at home but there is no fever here. His white blood cell count is normal. He does get steroids left leg. Blood cultures have been obtained. I do not see an obvious source for infection at this time. He will submit a urine for analysis. History of Present Illness History of Present Illness Chief Complaint: cough, abnormal troponin and BNP, reported fever Narrative: This 62-year-old male who is here because of multiple symptoms. He was here in the hospital about 1 month ago for 3 to 4 days because of a bronchitis. He had a follow-up visit today with the manager of merchandising who recommended he come down to the emergency department to be evaluated. He has not felt well for the last 3 to 4 days. He thought it was a recurrence of his bronchitis. He was having cough and shortness of breath with some chest pain. He describes the chest pain as a discomfort and mild pain in his upper central chest 2 days ago. He states he took 2 nitroglycerin tablets for this but it did not go away but he says it got better about an hour later so he did not come to the emergency department. He states he was given nitroglycerin to be used as needed about a year ago by the manager of merchandising. He said he had a fever of 102.5 ?F 2 days ago and 102.3 ?F today at home. He has had a cough but has not been productive. He states he had some similar discomfort in his chest about a month ago before he came to the hospital at that time. There is no radiation of pain. He was having some nausea but no diaphoresis. He has not been around anyone has been sick. He says he has had all but the most recent bivalved COVID booster and has had flu vaccine this season. He has been taking acetaminophen for his fever. 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 States she is on disability for his chronic medical problems. He states he developed a myopathy in 2010 and was in a wheelchair for couple months. He says they have tried to reduce the frequency of his immunoglobulin but his myopathy gets worse. He gets injections through a central pore monthly. He does not use tobacco or alcohol. He lives with his . He says that he has not been around anyone else that has been ill. He also has chronic kidney disease, and thrombocytopenia that is also chronic. Review of Systems Constitutional Constitutional: Reports chills, Reports fever(s), Denies weakness and Reports weight loss ENT Ears, Nose, Mouth, and Throat: Denies disequilibrium Cardiovascular Cardiovascular: Reports chest pain at rest, Denies irregular heart rhythm, Denies palpitations and Reports dyspnea Respiratory Respiratory: Reports cough, Denies hemoptysis, Denies pain on inspiration, Denies pain with cough and Reports dyspnea Gastrointestinal Gastrointestinal: Denies abdominal pain, Denies diarrhea, Reports nausea and Denies vomiting Genitourinary Genitourinary: Denies difficulty urinating, Denies dysuria, Denies urinary frequency and Denies urinary urgency Neurologic Neurologic: Denies confusion, Denies disequilibrium and Denies weakness Psychiatric Psychiatric: Denies confusion Endocrine Endocrine: Denies palpitations PFSH All Active Problems (Updated 07/16/22 @ 22:37 by Jayson Chiu MD) Heart failure (Acute) Non-ST elevation [place] (NSTEMI) (Acute) Discharge planning issues (Acute) Encounter for deep vein thrombosis (DVT) prophylaxis (Acute) Acute bronchitis (Acute) Ulcer of foot (Acute) Thyroid nodule (Acute) Fever (Acute) HFrEF (heart failure with reduced ejection fraction) (Acute) Thrombocytopenia (Chronic) Acute on chronic renal insufficiency (Acute) Lower extremity cellulitis (Acute) Renal insufficiency (Chronic) Impacted cerumen of both ears (Acute) HTN (hypertension) (Chronic) Cirrhosis of liver (Chronic) Subclavian vein thrombosis (Acute) Myopathy (Acute) Barretts esophagus (Acute) Hearing deficit (Acute) Epistaxis (Acute) Chronic anemia (Chronic) Edema (Acute) Heart murmur, systolic (Acute) CALDERON (dyspnea on exertion) (Acute) Diastolic dysfunction (Acute) Excess ear wax (Acute) Weakness of both legs (Acute) Nocturnal cough (Acute) Medication monitoring encounter (Acute) Skin cancer, basal cell (Acute) face Elevated troponin (Acute) Medical History Basal cell carcinoma, face Cardiomyopathy Chronic kidney disease Diabetes mellitus Duodenitis DVT (deep venous thrombosis) Essential hypertension Gout Hypercholesterolemia 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 Sister Diabetes PATERNAL UNCLE Personal history of malignant neoplasm STOMACH Social History Smoking/Tobacco Use Status: Never Smoking risk assessment performed?: Yes Alcohol Intake: never Drug use: Never Substance use type: does not use Do you feel safe at home: Yes Do you feel safe in your relationship?: Yes Meds Allergies and Home Medications Allergies Allergy/AdvReac Type Severity Reaction Status Date / Time methotrexate Allergy Skin Rash Verified 07/16/22 19:37 morphine Allergy Itching Verified 07/16/22 19:37 [id number]-JUL-PmM Reductase Allergy NECROTIZING Verified 07/16/22 19:37 Inhibitor MYOPATHY [Mtsivxv-Mnd-Rfz Reductase Inhibitor] Home Medications Medication Instructions Recorded Confirmed Type Gamaguard Ivig See Rx Instructions .Route .COMPLEX 09/18/12 07/16/22 History multivitamin (Daily Multi-Vitamin 1 tab PO DAILY 11/23/13 07/16/22 History tablet) allopurinol 100 mg tablet 400 mg PO DAILY 04/10/21 07/16/22 History aspirin 81 mg tablet,delayed 81 mg PO DAILY #100 tabs 04/12/21 07/16/22 Rx release canagliflozin 100 mg tablet 100 mg PO DAILY #30 tabs 04/12/21 07/16/22 Rx magnesium oxide 400 mg (241.3 mg 400 mg PO BID #60 tabs 04/12/21 07/16/22 Rx magnesium) tablet nitroglycerin 0.4 mg sublingual 0.4 mg sublingual Q5-15M PRN #30 04/12/21 07/16/22 Rx tablet tabs darbepoetin matt in polysorbat 60 60 mcg IV Q2W PRN 04/20/21 07/16/22 History mcg/mL in polysorbate injection (Aranesp) iron sucrose 200 mg iron/10 mL 300 mg IV .Q30 PRN 04/20/21 07/16/22 History intravenous solution (Venofer) epoetin matt 20,000 unit/mL 20,000 unit subcut .every other 04/24/21 07/16/22 History injection solution week methylprednisolone sod suc(PF) 125 125 mg IM MONTHLY 04/24/21 07/16/22 History mg/2 mL solution for injection (Solu-Medrol (PF)) ondansetron 4 mg disintegrating 4 mg PO BID PRN 04/24/21 07/16/22 History tablet (Zofran ODT) carvedilol 12.5 mg tablet 12.5 mg PO BID #180 tabs 08/07/21 07/16/22 Rx losartan 50 mg tablet 75 mg PO DAILY 04/11/22 07/16/22 History furosemide 40 mg tablet 40 mg PO DAILY 06/20/22 07/16/22 History doxycycline hyclate 100 mg capsule 100 mg PO BID #7 caps 06/23/22 07/16/22 Rx dextromethorphan-guaifenesin 10 1 tab-cap PO ONCE PRN 07/16/22 07/16/22 History mg-200 mg capsule (Coricidin HBP Chest Congestion-Cough) insulin glargine 100 unit/mL (3 See Rx Instructions subcut HS 07/16/22 07/16/22 History mL) subcutaneous pen (Lantus Solostar U-100 Insulin) insulin lispro 100 unit/mL 100 unit subcut AC 07/16/22 07/16/22 History subcutaneous cartridge (Humalog U-100 Insulin) sodium chloride-aloe vera nasal 1 applic topical QID PRN 07/16/22 07/16/22 History gel (Ailey Saline nasal gel) Exam Const General: cooperative, comfortable, no acute distress and disheveled Nutritional Appearance: obese Orientation: alert and awake Neck Neck: normal visual inspection, no lymphadenopathy, trachea midline and JVD Resp Auscultation: clear to auscultation bilaterally, no rales, no rhonchi and no wheezes Cardio Rate: regular rate Rhythm: regular rhythm Heart Sounds: S1 normal, S2 normal, no gallops, murmur and no rubs Other: 1/6 SMITA GI Palpation: soft, no hepatosplenomegaly, not firm, no hernias and nontender Extrem General: no clubbing, no cyanosis and edema Other: +2 Edema of both lower legs, pitting. Results Labs Result diagrams: 07/16/22 18:17 07/16/22 18:17 Labs: Laboratory Results - last 24 hr 07/16/22 07/16/22 07/16/22 18:17 18:17 18:17 WBC 4.72 RBC 3.40 L Hgb 11.0 L Hct 34.2 L MCV 101 H MCH 32.4 MCHC 32.2 RDW 15.8 H Plt Count 80 L MPV 11.4 H Immature Gran % 0.4 Neutrophils % 84.0 Lymphocytes % 3.6 Monocytes % 11.4 Eosinophils % 0.2 Basophils % 0.4 Nucleated RBC % 0.0 Absolute Neutrophils 3.96 Absolute Lymphocytes 0.17 L Absolute Monocytes 0.54 Absolute Eosinophils 0.01 Absolute Basophils 0.02 RBC Morphology Normal PT INR APTT D-Dimer Sodium 131 L Potassium 4.3 Chloride 99 Carbon Dioxide 22.4 Anion Gap 9.6 BUN 62 H Creatinine 1.9 H Est GFR (CKD-EPI 2020) 38.91 Glucose 161 H Calcium 8.8 Total Bilirubin 0.9 AST 60 H ALT 49 Alkaline Phosphatase 169 H Troponin I 2252 H* NT-Pro-B Natriuret Pep 36282 H Total Protein 8.8 H Albumin 2.4 L Acetaminophen COVID-19 Source Nasopharynx SARS-CoV-2 (PCR) Negative Influenza Type A (PCR) Negative Influenza Type B (PCR) Negative RSV (PCR) Negative 07/16/22 07/16/22 07/16/22 18:17 18:44 20:40 WBC RBC Hgb Hct MCV MCH MCHC RDW Plt Count MPV Immature Gran % Neutrophils % Lymphocytes % Monocytes % Eosinophils % Basophils % Nucleated RBC % Absolute Neutrophils Absolute Lymphocytes Absolute Monocytes Absolute Eosinophils Absolute Basophils RBC Morphology PT 12.6 H INR 1.2 H APTT 100.9 H* D-Dimer 1758 H Sodium Potassium Chloride Carbon Dioxide Anion Gap BUN Creatinine Est GFR (CKD-EPI 2020) Glucose Calcium Total Bilirubin AST ALT Alkaline Phosphatase Troponin I NT-Pro-B Natriuret Pep Total Protein Albumin Acetaminophen 16 COVID-19 Source SARS-CoV-2 (PCR) Influenza Type A (PCR) Influenza Type B (PCR) RSV (PCR) 07/16/22 07/16/22 21:04 21:39 WBC RBC Hgb Hct MCV MCH MCHC RDW Plt Count MPV Immature Gran % Neutrophils % Lymphocytes % Monocytes % Eosinophils % Basophils % Nucleated RBC % Absolute Neutrophils Absolute Lymphocytes Absolute Monocytes Absolute Eosinophils Absolute Basophils RBC Morphology PT INR APTT 93.4 H* D-Dimer Sodium Potassium Chloride Carbon Dioxide Anion Gap BUN Creatinine Est GFR (CKD-EPI 2020) Glucose Calcium Total Bilirubin AST ALT Alkaline Phosphatase Troponin I 2946 H* NT-Pro-B Natriuret Pep Total Protein Albumin Acetaminophen COVID-19 Source SARS-CoV-2 (PCR) Influenza Type A (PCR) Influenza Type B (PCR) RSV (PCR) Last Vital Signs Temp 37.1 C 07/16/22 19:15 Pulse 69 07/16/22 20:50 Resp 16 07/16/22 20:50 BP 121/57 L 07/16/22 20:50 Pulse Ox 97 07/16/22 20:50 Time Spent Time spent with Patient: 55-74 minutes Time was spent: preparing to see the patient(eg.review tests), obtaining and/or reviewing separately otained hiistory and ordering medications,tests, procedures
[2022-07-17] VITALS (8 sets, daily range): BP systolic 104–149; BP diastolic 45–57; PULSE 82–90; RESP 14–30; TEMP 36.7–38.4; O2SAT 95–98
[2022-07-17 00:08] LABS: Bilirubin Negative (Negative); Blood Trace-intact (Negative); Clarity Clear (Clear); Glucose 250 mg/dL (Negative); Ketones Negative (Negative); Leukocyte Esterase Negative (Negative); Nitrite Negative (Negative); Urobilinogen 0.2 EU/dL (Up TO 0.2); pH 5.5 (5-8)
[2022-07-17] MEDS: guaiFENesin/D-METHORPHAN HB 5 ML CUP PO ×2 (00:20→04:30)
[2022-07-17] MEDS: Insulin Glargine 300 UNITS/3 ML PEN 20 UNITS SC (00:21)
[2022-07-17 00:24] LABS: Bacteria Rare HPF (Negative); C & S Indicated? No; Crystals Negative HPF (Negative); Epithelial Cells Negative HPF (Negative); Mucus Negative (Negative); RBC 0-2 HPF (0-2); WBC 0-2 HPF (0-5)
[2022-07-17] MEDS: Normal Saline Flush 10 ML SYR IVP ×2 (02:57→08:58)
[2022-07-17 03:44] LABS: Abs Immature Grans 0.02 10^3/uL (0.0-0.06); Absolute Basophil Count 0.03 10^3/uL (0.0-0.2); Absolute Eosinophil Count 0.01 10^3/uL (0.0-0.7); Absolute Lymphocyte Count 0.23 10^3/uL (1.2-3.4); Absolute Monocyte Count 0.56 10^3/uL (0.1-0.8); Absolute Neutrophil Count 3.06 10^3/uL (1.2-6.7); Basophils % 0.8; Eosinophils % 0.3; HGB 10.1 g/dL (13.5-17.5); Immature Grans % 0.5; Lymphocytes % 5.9; MCH 32.8 pg (27.0-33.0); MCHC 32.6 % (32.0-36.0); MCV 101 fL (80-95); MPV 11.6 fL (8.0-11.0); Monocytes % 14.3; Neutrophils % 78.2; Platelet Count 65 10^3/uL (130-400); RBC 3.08 10^6/uL (4.36-5.78); RDW 15.9 % (11.8-14.1); WBC 3.91 10^3/uL (4.4-10.8)
[2022-07-17 03:54] LABS: Magnesium 1.8 mg/dL (1.8-2.4)
[2022-07-17 03:55] LABS: PTT Activated 53.9 sec (21.5-31.9)
[2022-07-17 04:00] LABS: ALT 47 U/L (16-63); AST 66 U/L (15-37); Albumin 2.3 g/dL (3.4-5.0); Alkaline Phosphatase 158 U/L (46-116); Anion Gap 7.3 mmol/L (3-11); BUN 63 mg/dL (7-18); Bilirubin, Total 0.9 mg/dL (0.2-1.0); CO2 23.7 mmol/L (21.0-32.0); Calcium 8.5 mg/dL (8.5-10.1); Chloride 99 mmol/L (98-107); Creatine Kinase 49 U/L (39-308); Estimated GFR 36.58 (mL/min/1.73m2); Glucose 156 mg/dL (74-106); Potassium 4.2 mmol/L (3.5-5.1); Sodium 130 mmol/L (136-145); Total Protein 8.2 g/dL (6.4-8.2)
[2022-07-17 04:05] LABS: Troponin I 2769 ng/L (<or=60)
[2022-07-17] MEDS: MAGNESIUM SULFATE 2 GM/50 ML BAG IVPB (06:26)
[2022-07-17] MEDS: Amiodarone in Dextrose 360 MG/200 ML BAG 33.3 MG IV (06:35)
--- NOTE | 2022-07-17 07:16 | W.PM.PROGNOT ---
Date of Service Date of service: 07/17/22 Time of Service: 07:16 Assessment and Plan Assessment and plan (1) Heart failure: Status: Acute Assessment and plan: He has diuresed well. Vital signs have remained stable. (2) Non-ST elevation [place] (NSTEMI): Status: Acute Assessment and plan: He has been treated for the myocardial infarction with aspirin, clopidogrel and intravenous heparin. He is also on carvedilol. He developed 2 episodes of ventricular tachycardia through the night and has now been given magnesium to raise his magnesium level up and started on amiodarone. He is currently on amiodarone infusion. I discussed situation with cardiology at [facility] as well as [facility]. There are no beds available at [facility] but he is on the transfer list with the attending Dr. Dr. Constantino. There are no beds at [facility] in [facility]. I have been in discussion with cardiology at [facility] in [facility] and they are working on finding a bed. (3) Thrombocytopenia: Status: Chronic Assessment and plan: Platelets have dropped to 65,000 from 80,000. This will need to be monitored. (4) Renal insufficiency: Status: Chronic Assessment and plan: Creatinine has gone up to 2.0 compared to 1.9 on admission. We note that his urinalysis is normal. This elevated creatinine will need to be monitored. Subjective Subjective Interval history since last seen: The patient feels fine at this time. He has no trouble breathing or chest pain discomfort. He has diuresed well and has put out 1200 cc of urine since admission and presentation to the hospital. Through the night he has had 2 episodes nonsustained ventricular tachycardia. Each lasted about 27 seconds. They resolved spontaneously. Labs were drawn this morning and shows that his troponin has gone down to 2700 after peaking over 2900. His magnesium is a bit low at 1.8. CK is normal. V. tach was not symptomatic. Vital signs have remained stable. Objective Last Vital Signs Temp 36.7 C 07/17/22 04:00 Pulse 86 07/17/22 06:01 Resp 14 07/17/22 06:01 BP 117/54 L 07/17/22 06:01 Pulse Ox 97 07/17/22 06:01 Laboratory Results - last 24 hr 07/16/22 07/16/22 07/16/22 18:17 18:17 18:17 WBC 4.72 RBC 3.40 L Hgb 11.0 L Hct 34.2 L MCV 101 H MCH 32.4 MCHC 32.2 RDW 15.8 H Plt Count 80 L MPV 11.4 H Immature Gran % 0.4 Neutrophils % 84.0 Lymphocytes % 3.6 Monocytes % 11.4 Eosinophils % 0.2 Basophils % 0.4 Nucleated RBC % 0.0 Absolute Neutrophils 3.96 Absolute Lymphocytes 0.17 L Absolute Monocytes 0.54 Absolute Eosinophils 0.01 Absolute Basophils 0.02 RBC Morphology Normal PT INR APTT D-Dimer Sodium 131 L Potassium 4.3 Chloride 99 Carbon Dioxide 22.4 Anion Gap 9.6 BUN 62 H Creatinine 1.9 H Est GFR (CKD-EPI 2020) 38.91 Glucose 161 H Calcium 8.8 Magnesium Total Bilirubin 0.9 AST 60 H ALT 49 Alkaline Phosphatase 169 H Creatine Kinase Troponin I 2252 H* NT-Pro-B Natriuret Pep 28220 H Total Protein 8.8 H Albumin 2.4 L Urine Color Urine Clarity Urine pH Ur Specific [place] Urine Protein Urine Ketones Urine Blood Urine Nitrite Urine Bilirubin Urine Urobilinogen Ur Leukocyte Esterase Urine RBC Urine WBC Ur Epithelial Cells Urine Crystals Urine Bacteria Urine Mucus Ur Culture Indicated? Urine Glucose Acetaminophen COVID-19 Source Nasopharynx SARS-CoV-2 (PCR) Negative Influenza Type A (PCR) Negative Influenza Type B (PCR) Negative RSV (PCR) Negative 07/16/22 07/16/22 07/16/22 18:17 18:44 20:40 WBC RBC Hgb Hct MCV MCH MCHC RDW Plt Count MPV Immature Gran % Neutrophils % Lymphocytes % Monocytes % Eosinophils % Basophils % Nucleated RBC % Absolute Neutrophils Absolute Lymphocytes Absolute Monocytes Absolute Eosinophils Absolute Basophils RBC Morphology PT 12.6 H INR 1.2 H APTT 100.9 H* D-Dimer 1758 H Sodium Potassium Chloride Carbon Dioxide Anion Gap BUN Creatinine Est GFR (CKD-EPI 2020) Glucose Calcium Magnesium Total Bilirubin AST ALT Alkaline Phosphatase Creatine Kinase Troponin I NT-Pro-B Natriuret Pep Total Protein Albumin Urine Color Urine Clarity Urine pH Ur Specific [place] Urine Protein Urine Ketones Urine Blood Urine Nitrite Urine Bilirubin Urine Urobilinogen Ur Leukocyte Esterase Urine RBC Urine WBC Ur Epithelial Cells Urine Crystals Urine Bacteria Urine Mucus Ur Culture Indicated? Urine Glucose Acetaminophen 16 COVID-19 Source SARS-CoV-2 (PCR) Influenza Type A (PCR) Influenza Type B (PCR) RSV (PCR) 07/16/22 07/16/22 07/16/22 21:04 21:39 23:25 WBC RBC Hgb Hct MCV MCH MCHC RDW Plt Count MPV Immature Gran % Neutrophils % Lymphocytes % Monocytes % Eosinophils % Basophils % Nucleated RBC % Absolute Neutrophils Absolute Lymphocytes Absolute Monocytes Absolute Eosinophils Absolute Basophils RBC Morphology PT INR APTT 93.4 H* D-Dimer Sodium Potassium Chloride Carbon Dioxide Anion Gap BUN Creatinine Est GFR (CKD-EPI 2020) Glucose Calcium Magnesium Total Bilirubin AST ALT Alkaline Phosphatase Creatine Kinase Troponin I 2946 H* NT-Pro-B Natriuret Pep Total Protein Albumin Urine Color Yellow Urine Clarity Clear Urine pH 5.5 Ur Specific [place] 1.010 Urine Protein Negative Urine Ketones Negative Urine Blood Trace-intact H Urine Nitrite Negative Urine Bilirubin Negative Urine Urobilinogen 0.2 Ur Leukocyte Esterase Negative Urine RBC 0-2 Urine WBC 0-2 Ur Epithelial Cells Negative Urine Crystals Negative Urine Bacteria Rare Urine Mucus Negative Ur Culture Indicated? No Urine Glucose 250 H Acetaminophen COVID-19 Source SARS-CoV-2 (PCR) Influenza Type A (PCR) Influenza Type B (PCR) RSV (PCR) 07/17/22 07/17/22 07/17/22 03:35 03:35 03:35 WBC 3.91 L RBC 3.08 L Hgb 10.1 L Hct 31.0 L MCV 101 H MCH 32.8 MCHC 32.6 RDW 15.9 H Plt Count 65 L MPV 11.6 H Immature Gran % 0.5 Neutrophils % 78.2 Lymphocytes % 5.9 Monocytes % 14.3 Eosinophils % 0.3 Basophils % 0.8 Nucleated RBC % 0.0 Absolute Neutrophils 3.06 Absolute Lymphocytes 0.23 L Absolute Monocytes 0.56 Absolute Eosinophils 0.01 Absolute Basophils 0.03 RBC Morphology PT INR APTT 53.9 H D-Dimer Sodium 130 L Potassium 4.2 Chloride 99 Carbon Dioxide 23.7 Anion Gap 7.3 BUN 63 H Creatinine 2.0 H Est GFR (CKD-EPI 2020) 36.58 Glucose 156 H Calcium 8.5 Magnesium Total Bilirubin 0.9 AST 66 H ALT 47 Alkaline Phosphatase 158 H Creatine Kinase 49 Troponin I 2769 H* NT-Pro-B Natriuret Pep Total Protein 8.2 Albumin 2.3 L Urine Color Urine Clarity Urine pH Ur Specific [place] Urine Protein Urine Ketones Urine Blood Urine Nitrite Urine Bilirubin Urine Urobilinogen Ur Leukocyte Esterase Urine RBC Urine WBC Ur Epithelial Cells Urine Crystals Urine Bacteria Urine Mucus Ur Culture Indicated? Urine Glucose Acetaminophen COVID-19 Source SARS-CoV-2 (PCR) Influenza Type A (PCR) Influenza Type B (PCR) RSV (PCR) 07/17/22 03:35 WBC RBC Hgb Hct MCV MCH MCHC RDW Plt Count MPV Immature Gran % Neutrophils % Lymphocytes % Monocytes % Eosinophils % Basophils % Nucleated RBC % Absolute Neutrophils Absolute Lymphocytes Absolute Monocytes Absolute Eosinophils Absolute Basophils RBC Morphology PT INR APTT D-Dimer Sodium Potassium Chloride Carbon Dioxide Anion Gap BUN Creatinine Est GFR (CKD-EPI 2020) Glucose Calcium Magnesium 1.8 Total Bilirubin AST ALT Alkaline Phosphatase Creatine Kinase Troponin I NT-Pro-B Natriuret Pep Total Protein Albumin Urine Color Urine Clarity Urine pH Ur Specific [place] Urine Protein Urine Ketones Urine Blood Urine Nitrite Urine Bilirubin Urine Urobilinogen Ur Leukocyte Esterase Urine RBC Urine WBC Ur Epithelial Cells Urine Crystals Urine Bacteria Urine Mucus Ur Culture Indicated? Urine Glucose Acetaminophen COVID-19 Source SARS-CoV-2 (PCR) Influenza Type A (PCR) Influenza Type B (PCR) RSV (PCR) Time Spent with Patient Time Spent with Patient: 25-34 minutes Time was spent: ordering medications,tests, procedures, referring, communicating with other health ostomy care nurse and indepentently interpreting results
[2022-07-17] MEDS: Acetaminophen 325 MG TAB 650 MG PO (08:22)
[2022-07-17] MEDS: Aspirin E.C. 81 MG TABEC PO (08:22)
[2022-07-17] MEDS: Magnesium Oxide 400 MG TAB PO (08:23)
[2022-07-17] MEDS: Losartan 50 MG TAB 75 MG PO (08:23)
[2022-07-17] MEDS: Clopidogrel 75 MG TAB PO (08:23)
[2022-07-17] MEDS: Carvedilol 12.5 MG TAB PO (08:23)
[2022-07-17] MEDS: Allopurinol 100 MG TAB 400 MG PO (08:24)
--- NOTE | 2022-07-17 08:26 | W.PM.DS.N ---
Date of service: 07/17/22 Time of Service: 08:26 DS: Diagnosis Discharge Diagnosis (1) Heart failure: Status: Acute (2) Non-ST elevation NM (NSTEMI): Status: Acute (3) Thrombocytopenia: Status: Chronic (4) Renal insufficiency: Status: Chronic Discharge Plan Disposition Patient Disposition: Transfer-Acute Inpatient Care Specific Acute Inpt Facility: [facility] Condition: Stable Discharge Details Reason For Visit: Non-STEMI NM,Heart Failure Admit Date/Time: 07/16/22 22:00 Admit Provider: Jayson Chiu Attending Provider: Jayson Chiu Primary Care Provider: Jazmine Baer V Hospital Course Hospital Course: This 62-year-old male who is here because of multiple symptoms.? He was here in the hospital about 1 month ago for 3 to 4 days because of a bronchitis.? He had a follow-up visit today with the wheel loader operator who recommended he come down to the emergency department to be evaluated.? He has not felt well for the last 3 to 4 days.? He thought it was a recurrence of his bronchitis.? He was having cough and shortness of breath with some chest pain.? He describes the chest pain as a discomfort and mild pain in his upper central chest 2 days ago.? He states he took 2 nitroglycerin tablets for this but it did not go away but he says it got better about an hour later so he did not come to the emergency department.? He states he was given nitroglycerin to be used as needed about a year ago by the wheel loader operator.? He said he had a fever of 102.5 ?F 2 days ago and 102.3 ?F today at home.? He has had a cough but has not been productive.? He states he had some similar discomfort in his chest about a month ago before he came to the hospital at that time.? There is no radiation of pain.? He was having some nausea but no diaphoresis.? He has not been around anyone has been sick.? He says he has had all but the most recent bivalved COVID booster and has had flu vaccine this season.? He has been taking acetaminophen for his fever.? 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 States she is on disability for his chronic medical problems.? He states he developed a myopathy in 2010 and was in a wheelchair for couple months.? He says they have tried to reduce the frequency of his immunoglobulin but his myopathy gets worse.? He gets injections through a central port monthly.? He does not use tobacco or alcohol.? He lives with his .? He says that he has not been around anyone else that has been ill.? He also has chronic kidney disease, and thrombocytopenia that is also chronic. He was febrile at time of presentation and until the next morning at 0741 when his temperature was 38.4 His EKG showed diffuse downsloping ST depression that was seen to a lesser degree on EKG of 06/20/22 and not seen on EKG in January of 2022. His troponin was initially 2252, then 2946 > 2769. He had no chest pain while admitted. He has been treated for the myocardial infarction with aspirin, clopidogrel and intravenous heparin.? He is also on carvedilol.? He developed 2 episodes of ventricular tachycardia through the night and wasgiven magnesium to raise his magnesium level up and started on amiodarone infusion.? The infusion was paused after his heart rate decreased into the 50's and remained there after a paroxysm of coughing. He has been accepted in transfer to the ED at [facility] and then to Cardiology service once a bed is available. Home Meds and New Rx's Prescriptions: No Action Aranesp (in polysorbate) 60 mcg/mL solution 60 mcg IV Q2W PRN Label Comments: Through [facility] Outpatient Infusion Venofer 200 mg iron/10 mL solution 300 mg IV .Q30 PRN Label Comments: Through [facility] Outpatient Infusion Rx Instructions: administer over 30 mins insulin glargine [Lantus Solostar U-100 Insulin] 100 unit/mL (3 mL) insulin pen See Rx Instructions subcut HS Rx Instructions: 25-30 U daily subcutaneously bedtime; Streetman Saline Gel 1 applic topical QID PRN Rx Instructions: while awake carvedilol 12.5 mg tablet 12.5 mg PO BID Qty: 180 3RF Rx Instructions: must administer with a meal/food Coricidin HBP Chest Oliver-Cough 10-200 mg capsule 1 tab-cap PO ONCE PRN GAMAGUARD IVIG See Rx Instructions .ROUTE .COMPLEX Rx Instructions: Patient seen at [facility] for IVIG infusions 2x a month ondansetron [Zofran ODT] 4 mg tablet,disintegrating 4 mg PO BID PRN epoetin matt 20,000 unit/mL solution 20,000 unit subcut .every other week Solu-Medrol (PF) 125 mg/2 mL recon soln 125 mg IM MONTHLY multivitamin [Daily Multi-Vitamin] 1 EACH tablet 1 tab PO DAILY allopurinol 100 mg tablet 400 mg PO DAILY aspirin 81 mg Tablet,Delayed Release (Dr/Ec) 81 mg PO DAILY Qty: 100 0RF magnesium oxide 400 mg (241.3 mg magnesium) Tablet 400 mg PO BID Qty: 60 1RF canagliflozin 100 mg tablet 100 mg PO DAILY Qty: 30 1RF nitroglycerin 0.4 mg tablet, sublingual 0.4 mg sublingual Q5-15M PRNQty: 30 0RF Rx Instructions: do not exceed 3 doses per episode losartan 50 mg tablet 75 mg PO DAILY insulin lispro [Humalog KwikPen Insulin] 100 unit/mL insulin pen 20 unit SUBCUT AC Label Comments: INJECT 20 UNITS SUBCUTANEOUSLY THREE TIMES A DAY DIRECTED 20 UNITS AT MEAL TIME PLUS SS AT MEALS MAX UNITS PER DAY 138 UNITS furosemide 40 mg tablet 40 mg PO DAILY doxycycline hyclate 100 mg capsule 100 mg PO BID Qty: 7 0RF Discharge Instructions Activity:: Bedrest Equipment/Supplies:: No Equipment Needed Diet:: NPO Discharge Orders Discharge Orders: Discharge Order (Routine); Ordered 07/17/22 Ordered By: Braeden Lagos DS: Summary Time Spent with Patient providing and/or coordinating discharge services: Greater than 30 minutes Status at Discharge Functional status at discharge: independent ambulation Overall status at discharge: patient is not back to baseline Mental Status: mental status grossly normal Speech and Movement: speech and movement normal Mood: congruent mood Affect: normal affect Exam Const General: cooperative, comfortable, no acute distress and disheveled Nutritional Appearance: obese Orientation: alert and awake Neck Neck: normal visual inspection, no lymphadenopathy, trachea midline and JVD Resp Auscultation: clear to auscultation bilaterally, no rales, no rhonchi and no wheezes Cardio Rate: regular rate Rhythm: regular rhythm Heart Sounds: S1 normal, S2 normal, no gallops, murmur and no rubs Other: 1/6 SM[facility] GI Palpation: soft, no hepatosplenomegaly, not firm, no hernias and nontender Extrem General: no clubbing, no cyanosis and edema Other: +2 Edema of both lower legs, pitting. Psych Mental Status: mental status grossly normal Speech and Movement: speech and movement normal Mood: congruent mood Affect: normal affect DS: Data Vitals/I&O Vitals and I&O: Vital Signs Temperature 38.4 C H 07/17/22 08:22 Temperature Source Temporal Artery Scan 07/17/22 07:41 Pulse 86 07/17/22 06:01 Pulse 88 07/17/22 06:01 Respiratory Rate 14 07/17/22 06:01 Respiratory Effort 07/17/22 07:41 Respiratory Depth Retractive 07/17/22 07:41 Respiratory Pattern Tachypnea 07/17/22 07:41 Blood Pressure 117/54 L 07/17/22 06:01 Blood Pressure Mean 67 07/17/22 06:01 Blood Pressure Position Supine 07/17/22 07:41 Pulse Oximetry 97 07/17/22 06:01 Oxygen Delivery Method Room Air 07/17/22 07:41 Oxygen Flow Rate 0 07/17/22 07:41 Pain Level 0 07/17/22 07:41 Intake & Output 07/16/22 07/16/22 07/17/22 11:59 23:59 11:59 Intake Total 42 / 42 352.375 / 352.375 Output Total 350 / 350 950 / 950 Balance -308 / -308 -597.625 / -597.625 Weight 117.5 kg 117.5 kg Intake: IV 42 / 42 112.375 / 112.375 Oral 240 / 240 Output: Urine 350 / 350 950 / 950 Other: Urine Color Dark Arlette Light Arlette Urine Appearance Clear Clear Urine Odor None Strong Comment CKD,Kidney stone pt reports no incontinence. pt reports BM yesterday Voiding Methods Urinal Urinal Data Completed and Pending Labs on day of discharge: Labs from last 24 hours 07/17/22 07/17/22 07/17/22 03:35 03:35 03:35 WBC 3.91 L RBC 3.08 L Hgb 10.1 L Hct 31.0 L MCV 101 H MCH 32.8 MCHC 32.6 RDW 15.9 H Plt Count 65 L MPV 11.6 H Immature Gran % 0.5 Neutrophils % 78.2 Lymphocytes % 5.9 Monocytes % 14.3 Eosinophils % 0.3 Basophils % 0.8 Nucleated RBC % 0.0 Absolute Neutrophils 3.06 Absolute Lymphocytes 0.23 L Absolute Monocytes 0.56 Absolute Eosinophils 0.01 Absolute Basophils 0.03 RBC Morphology PT INR APTT 53.9 H D-Dimer Sodium Potassium Chloride Carbon Dioxide Anion Gap BUN Creatinine Est GFR (CKD-EPI 2020) Glucose Calcium Magnesium 1.8 Total Bilirubin AST ALT Alkaline Phosphatase Creatine Kinase Troponin I NT-Pro-B Natriuret Pep Total Protein Albumin Urine Color Urine Clarity Urine pH Ur Specific Jacobson Urine Protein Urine Ketones Urine Blood Urine Nitrite Urine Bilirubin Urine Urobilinogen Ur Leukocyte Esterase Urine RBC Urine WBC Ur Epithelial Cells Urine Crystals Urine Bacteria Urine Mucus Ur Culture Indicated? Urine Glucose Acetaminophen COVID-19 Source SARS-CoV-2 (PCR) Influenza Type A (PCR) Influenza Type B (PCR) RSV (PCR) 07/17/22 07/16/22 07/16/22 03:35 23:25 21:39 WBC RBC Hgb Hct MCV MCH MCHC RDW Plt Count MPV Immature Gran % Neutrophils % Lymphocytes % Monocytes % Eosinophils % Basophils % Nucleated RBC % Absolute Neutrophils Absolute Lymphocytes Absolute Monocytes Absolute Eosinophils Absolute Basophils RBC Morphology PT INR APTT 93.4 H* D-Dimer Sodium 130 L Potassium 4.2 Chloride 99 Carbon Dioxide 23.7 Anion Gap 7.3 BUN 63 H Creatinine 2.0 H Est GFR (CKD-EPI 2020) 36.58 Glucose 156 H Calcium 8.5 Magnesium Total Bilirubin 0.9 AST 66 H ALT 47 Alkaline Phosphatase 158 H Creatine Kinase 49 Troponin I 2769 H* NT-Pro-B Natriuret Pep Total Protein 8.2 Albumin 2.3 L Urine Color Yellow Urine Clarity Clear Urine pH 5.5 Ur Specific Jacobson 1.010 Urine Protein Negative Urine Ketones Negative Urine Blood Trace-intact H Urine Nitrite Negative Urine Bilirubin Negative Urine Urobilinogen 0.2 Ur Leukocyte Esterase Negative Urine RBC 0-2 Urine WBC 0-2 Ur Epithelial Cells Negative Urine Crystals Negative Urine Bacteria Rare Urine Mucus Negative Ur Culture Indicated? No Urine Glucose 250 H Acetaminophen COVID-19 Source SARS-CoV-2 (PCR) Influenza Type A (PCR) Influenza Type B (PCR) RSV (PCR) 07/16/22 07/16/22 07/16/22 21:04 20:40 18:44 WBC RBC Hgb Hct MCV MCH MCHC RDW Plt Count MPV Immature Gran % Neutrophils % Lymphocytes % Monocytes % Eosinophils % Basophils % Nucleated RBC % Absolute Neutrophils Absolute Lymphocytes Absolute Monocytes Absolute Eosinophils Absolute Basophils RBC Morphology PT 12.6 H INR 1.2 H APTT 100.9 H* D-Dimer Sodium Potassium Chloride Carbon Dioxide Anion Gap BUN Creatinine Est GFR (CKD-EPI 2020) Glucose Calcium Magnesium Total Bilirubin AST ALT Alkaline Phosphatase Creatine Kinase Troponin I 2946 H* NT-Pro-B Natriuret Pep Total Protein Albumin Urine Color Urine Clarity Urine pH Ur Specific Jacobson Urine Protein Urine Ketones Urine Blood Urine Nitrite Urine Bilirubin Urine Urobilinogen Ur Leukocyte Esterase Urine RBC Urine WBC Ur Epithelial Cells Urine Crystals Urine Bacteria Urine Mucus Ur Culture Indicated? Urine Glucose Acetaminophen 16 COVID-19 Source SARS-CoV-2 (PCR) Influenza Type A (PCR) Influenza Type B (PCR) RSV (PCR) 07/16/22 07/16/22 07/16/22 18:17 18:17 18:17 WBC 4.72 RBC 3.40 L Hgb 11.0 L Hct 34.2 L MCV 101 H MCH 32.4 MCHC 32.2 RDW 15.8 H Plt Count 80 L MPV 11.4 H Immature Gran % 0.4 Neutrophils % 84.0 Lymphocytes % 3.6 Monocytes % 11.4 Eosinophils % 0.2 Basophils % 0.4 Nucleated RBC % 0.0 Absolute Neutrophils 3.96 Absolute Lymphocytes 0.17 L Absolute Monocytes 0.54 Absolute Eosinophils 0.01 Absolute Basophils 0.02 RBC Morphology Normal PT INR APTT D-Dimer 1758 H Sodium Potassium Chloride Carbon Dioxide Anion Gap BUN Creatinine Est GFR (CKD-EPI 2020) Glucose Calcium Magnesium Total Bilirubin AST ALT Alkaline Phosphatase Creatine Kinase Troponin I NT-Pro-B Natriuret Pep Total Protein Albumin Urine Color Urine Clarity Urine pH Ur Specific Jacobson Urine Protein Urine Ketones Urine Blood Urine Nitrite Urine Bilirubin Urine Urobilinogen Ur Leukocyte Esterase Urine RBC Urine WBC Ur Epithelial Cells Urine Crystals Urine Bacteria Urine Mucus Ur Culture Indicated? Urine Glucose Acetaminophen COVID-19 Source Nasopharynx SARS-CoV-2 (PCR) Negative Influenza Type A (PCR) Negative Influenza Type B (PCR) Negative RSV (PCR) Negative 07/16/22 18:17 WBC RBC Hgb Hct MCV MCH MCHC RDW Plt Count MPV Immature Gran % Neutrophils % Lymphocytes % Monocytes % Eosinophils % Basophils % Nucleated RBC % Absolute Neutrophils Absolute Lymphocytes Absolute Monocytes Absolute Eosinophils Absolute Basophils RBC Morphology PT INR APTT D-Dimer Sodium 131 L Potassium 4.3 Chloride 99 Carbon Dioxide 22.4 Anion Gap 9.6 BUN 62 H Creatinine 1.9 H Est GFR (CKD-EPI 2020) 38.91 Glucose 161 H Calcium 8.8 Magnesium Total Bilirubin 0.9 AST 60 H ALT 49 Alkaline Phosphatase 169 H Creatine Kinase Troponin I 2252 H* NT-Pro-B Natriuret Pep 46783 H Total Protein 8.8 H Albumin 2.4 L Urine Color Urine Clarity Urine pH Ur Specific Jacobson Urine Protein Urine Ketones Urine Blood Urine Nitrite Urine Bilirubin Urine Urobilinogen Ur Leukocyte Esterase Urine RBC Urine WBC Ur Epithelial Cells Urine Crystals Urine Bacteria Urine Mucus Ur Culture Indicated? Urine Glucose Acetaminophen COVID-19 Source SARS-CoV-2 (PCR) Influenza Type A (PCR) Influenza Type B (PCR) RSV (PCR) 07/16/22 21:04 Blood Blood Culture - Pending 07/16/22 20:40 Blood Blood Culture - Pending Preliminary micro results at discharge 07/16/22 21:04 Blood Culture - Pending Blood 07/16/22 20:40 Blood Culture - Pending Blood PFSH All Active Problems Heart failure (Acute) Non-ST elevation NM (NSTEMI) (Acute) Discharge planning issues (Acute) Encounter for deep vein thrombosis (DVT) prophylaxis (Acute) Acute bronchitis (Acute) Ulcer of foot (Acute) Thyroid nodule (Acute) Fever (Acute) HFrEF (heart failure with reduced ejection fraction) (Acute) Thrombocytopenia (Chronic) Acute on chronic renal insufficiency (Acute) Lower extremity cellulitis (Acute) Renal insufficiency (Chronic) Impacted cerumen of both ears (Acute) HTN (hypertension) (Chronic) Cirrhosis of liver (Chronic) Subclavian vein thrombosis (Acute) Myopathy (Acute) Barretts esophagus (Acute) Hearing deficit (Acute) Epistaxis (Acute) Chronic anemia (Chronic) Edema (Acute) Heart murmur, systolic (Acute) CALDERON (dyspnea on exertion) (Acute) Diastolic dysfunction (Acute) Excess ear wax (Acute) Weakness of both legs (Acute) Nocturnal cough (Acute) Medication monitoring encounter (Acute) Skin cancer, basal cell (Acute) face Elevated troponin (Acute) Medical History Basal cell carcinoma, face Cardiomyopathy Chronic kidney disease Diabetes mellitus Duodenitis DVT (deep venous thrombosis) Essential hypertension Gout Hypercholesterolemia 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 Sister Diabetes PATERNAL UNCLE Personal history of malignant neoplasm STOMACH Social History Smoking/Tobacco Use Status: Never Smoking risk assessment performed?: Yes Alcohol Intake: never Drug use: Never Substance use type: does not use Do you feel safe at home: Yes Do you feel safe in your relationship?: Yes Time Spent with Patient Time Spent with Patient: 45-69 minutes Time was spent: preparing to see the patient(eg.review tests), obtaining and/or reviewing separately otained hiistory, referring, communicating with other health personal care aid, indepentently interpreting results and care coordination
--- NOTE | 2022-07-17 09:35 | PDOC.CMDIS ---
- If Service Date Differs Date of service: 07/17/22 Time of Service: 09:35 LACE Index Scoring Tool - Questions: Length of Stay (in days): 1 Acuity (Admit via E.D.?): Yes Comorbidities: Previous M.I., Diabetes w/o Complication E.D. Visits: 4 - Answers: Total Score: 10 Risk of Readmission: High Risk Care Management Discharge Reason for Hospitalization: Non-STEMI NC,Heart Failure Discharge Plan: Bucky has been accepted in transfer to the ED at [facility] and then to Cardiology service once a bed is available. He is transported via EMS. Patient/Family Education Needs: Review transfer instructions. Discuss ask me three. Services Needed at Discharge: Transportation (EMS/[facility], arranged by RN Hydro Plant Site Manager. )
== END 2022-07-17 10:18 | disposition short-term general hospital (02) | DRG 280 ==
LOC: ER 23:26 → ICU 23:31
PROVIDERS: Admitting Provider Family Medicine; Emergency Provider Registered Nurse Emergency; PCP Family Medicine; Visit Provider Family Medicine
DX: I21.4 Non-ST elevation (NSTEMI) myocardial infarction (principal); I50.21 Acute systolic (congestive) heart failure; D61.818 Other pancytopenia; D84.821 Immunodeficiency due to drugs; G72.0 Drug-induced myopathy; I13.0 Hypertensive heart and chronic kidney disease with heart failure and stage 1 through stage 4 chronic kidney disease, or unspecified chronic kidney disease; I42.9 Cardiomyopathy, unspecified; I47.29 Other ventricular tachycardia; Z79.4 Long term (current) use of insulin; E11.22 Type 2 diabetes mellitus with diabetic chronic kidney disease; N18.9 Chronic kidney disease, unspecified; E66.9 Obesity, unspecified; Z68.38 Body mass index [BMI] 38.0-38.9, adult; Z86.711 Personal history of pulmonary embolism; Z86.718 Personal history of other venous thrombosis and embolism; I25.2 Old myocardial infarction; E78.00 Pure hypercholesterolemia, unspecified; D69.6 Thrombocytopenia, unspecified; I44.7 Left bundle-branch block, unspecified; K74.60 Unspecified cirrhosis of liver; T46.6X5A Adverse effect of antihyperlipidemic and antiarteriosclerotic drugs, initial encounter; I35.0 Nonrheumatic aortic (valve) stenosis; Z79.69 Long term (current) use of other immunomodulators and immunosuppressants; D64.9 Anemia, unspecified; K22.70 Barrett's esophagus without dysplasia; K29.80 Duodenitis without bleeding; M10.9 Gout, unspecified; R50.9 Fever, unspecified
CPT/HCPCS: 36415; 36591; 71275; 80053; 82550; 87040; 87077; 87637; 93005; 96365; 96366; 96375; 99214; 99291; 71045; 80329; 81003; 81015; 83735; 83880; 84484; 85025; 85379; 85610; 85730; 87186; 93010; 99223; 99239; J1940; J3490

== ENCOUNTER 2022-08-02 01:16 | Outpatient (CLI) | payer MEDICARE, SELFPAY ==
--- NOTE | 2022-08-02 08:30 | DI.US_ITS ---
Exam(s) US THYROID EXAM: US THYROID CLINICAL HISTORY: LT THYROID NODULE, E04.1. TECHNIQUE: Ultrasound thyroid performed using standard protocol. COMPARISON: CT CT CHEST PE CTA from 07/16/2022 FINDINGS: ISTHMUS: 0.3 mm RIGHT LOBE: Size: 5.3 x 2.3 x 2.0 cm Echogenicity: Normal. Vascularity: Normal. Nodules: There is a mixed cystic and solid nodule measuring 0.6 x 0.7 x 0.7 cm. It is anechoic and d oes contain a macrocalcification. It is consistent with a TI rads level 2 nodule. No follow-up is r ecommended. LEFT LOBE: Size: 3.8 x 2.2 x 2.7 cm Echogenicity: Normal. Vascularity: Normal. Nodules: There is a 1.6 x 1.1 x 1.9 cm mixed cystic and solid nodule which is hypoechoic. It is tall er than wide. There are ill-defined margins and no echogenic foci. This is consistent with a TI rad s level 4 nodule. Due to its size, FNA is recommended. OTHER FINDINGS: None. IMPRESSION: Moderately suspicious nodule in the left lobe of the thyroid gland. FNA is recommended due to its si ze. DATA REPOSITORY:
== END 2022-08-02 01:36 ==
LOC: DI 01:16
PROVIDERS: PCP Family Medicine; Visit Provider Family Medicine
DX: E04.1 Nontoxic single thyroid nodule (principal)
CPT/HCPCS: 76536

== ENCOUNTER 2022-08-03 18:39 | Outpatient (REF) | payer MEDICARE, SELFPAY ==
[2022-08-05 13:51] LABS: COVID-19 RT-PCR UVMMC Result Negative (Negative)
== END 2022-08-03 18:40 | disposition home or self-care (01) ==
LOC: NCHCN 18:39
PROVIDERS: PCP Family Medicine; Visit Provider Family Medicine
DX: Z20.822 Contact with and (suspected) exposure to COVID-19 (principal)
CPT/HCPCS: U0003

== ENCOUNTER 2022-08-07 02:05 | Outpatient (RCR) | payer MEDICARE, SELFPAY ==
[2022-07-11 00:06] VITALS: BP 117/72; PULSE 75; RESP 18; TEMP 36.6
[2022-07-25] MEDS: ceFAZolin 2 GM/50 ML BAG IVPB ×2 (07:29→19:49)
[2022-07-25] MEDS: Normal Saline Flush 10 ML SYR IVP ×2 (07:30→19:55)
[2022-07-26] MEDS: Normal Saline Flush 10 ML SYR IVP ×2 (07:25→19:53)
[2022-07-26] MEDS: ceFAZolin 2 GM/50 ML BAG IVPB ×2 (07:26→19:54)
[2022-07-27] MEDS: ceFAZolin 2 GM/50 ML BAG IVPB ×2 (07:30→19:36)
[2022-07-27] MEDS: Normal Saline Flush 10 ML SYR IVP ×2 (07:31→19:37)
[2022-07-27 07:51] LABS: Abs Immature Grans 0.05 10^3/uL (0.0-0.06); Absolute Basophil Count 0.09 10^3/uL (0.0-0.2); Absolute Eosinophil Count 0.31 10^3/uL (0.0-0.7); Absolute Monocyte Count 0.48 10^3/uL (0.1-0.8); Absolute Neutrophil Count 3.58 10^3/uL (1.2-6.7); Basophils % 1.7; HCT 33.5 % (40.0-50.0); HGB 10.6 g/dL (13.5-17.5); Lymphocytes % 13.4; MCH 31.9 pg (27.0-33.0); MCHC 31.6 % (32.0-36.0); MCV 101 fL (80-95); MPV 11.9 fL (8.0-11.0); Monocytes % 9.2; Neutrophils % 68.7; Platelet Count 102 10^3/uL (130-400); RBC 3.32 10^6/uL (4.36-5.78); RDW 16.2 % (11.8-14.1); RDW-SD 59.7 fL; WBC 5.21 10^3/uL (4.4-10.8)
[2022-07-27 07:54] LABS: CREATININE 1.6 mg/dL (0.70-1.30); Estimated GFR 47.82 (mL/min/1.73m2)
[2022-07-28] MEDS: Normal Saline Flush 10 ML SYR IVP (08:24)
[2022-07-28] MEDS: ceFAZolin 2 GM/50 ML BAG IVPB ×2 (08:24→19:33)
[2022-07-29] MEDS: ceFAZolin 2 GM/50 ML BAG IVPB ×2 (07:46→19:27)
[2022-07-29] MEDS: Normal Saline Flush 10 ML SYR IVP (07:47)
[2022-07-30] MEDS: ceFAZolin 2 GM/50 ML BAG IVPB ×2 (07:25→19:29)
[2022-07-30] MEDS: Normal Saline Flush 10 ML SYR IVP (07:26)
[2022-07-31] MEDS: Normal Saline Flush 10 ML SYR IVP ×2 (07:20→19:28)
[2022-07-31] MEDS: ceFAZolin 2 GM/50 ML BAG IVPB ×2 (07:20→19:28)
[2022-08-01] MEDS: ceFAZolin 2 GM/50 ML BAG IVPB ×2 (07:09→19:31)
[2022-08-01] MEDS: Normal Saline Flush 10 ML SYR IVP ×2 (07:10→19:32)
[2022-08-02] MEDS: ceFAZolin 2 GM/50 ML BAG IVPB ×2 (07:27→19:31)
[2022-08-02] MEDS: Normal Saline Flush 10 ML SYR IVP ×2 (07:27→19:32)
[2022-08-03] MEDS: Normal Saline Flush 10 ML SYR IVP ×2 (07:24→19:56)
[2022-08-03] MEDS: ceFAZolin 2 GM/50 ML BAG IVPB ×2 (07:24→19:55)
[2022-08-03 08:33] LABS: Abs Immature Grans 0.01 10^3/uL (0.0-0.06); Absolute Basophil Count 0.09 10^3/uL (0.0-0.2); Absolute Eosinophil Count 0.39 10^3/uL (0.0-0.7); Absolute Lymphocyte Count 0.46 10^3/uL (1.2-3.4); Absolute Monocyte Count 0.43 10^3/uL (0.1-0.8); Basophils % 2.4; Eosinophils % 10.6; HCT 32.8 % (40.0-50.0); HGB 10.2 g/dL (13.5-17.5); Immature Grans % 0.3; Lymphocytes % 12.5; MCH 31.6 pg (27.0-33.0); MCHC 31.1 % (32.0-36.0); MCV 102 fL (80-95); MPV 13.3 fL (8.0-11.0); Monocytes % 11.7; Neutrophils % 62.5; RBC 3.23 10^6/uL (4.36-5.78); RDW 15.6 % (11.8-14.1); RDW-SD 58.8 fL; WBC 3.68 10^3/uL (4.4-10.8)
[2022-08-03 08:45] LABS: CREATININE 1.8 mg/dL (0.70-1.30); Estimated GFR 41.51 (mL/min/1.73m2)
[2022-08-03 08:51] LABS: Diff Comment Diff Reviewed; Platelet Count 61 10^3/uL (130-400); RBC Morphology Normal
[2022-08-03 13:07] LABS: TSH (W/Ref FT4) 2.95 uIU/mL (0.36-3.74); Vitamin B12 1586 pg/mL (193-986)
[2022-08-03 13:11] LABS: Folate > 20.0 ng/mL (8.6-20.0)
[2022-08-04] MEDS: Normal Saline Flush 10 ML SYR IVP ×2 (07:24→19:27)
[2022-08-04] MEDS: ceFAZolin 2 GM/50 ML BAG IVPB ×2 (07:24→19:27)
[2022-08-05] MEDS: ceFAZolin 2 GM/50 ML BAG IVPB ×3 (07:25→19:50)
[2022-08-05] MEDS: Normal Saline Flush 10 ML SYR IVP (20:29)
[2022-08-06] MEDS: ceFAZolin 2 GM/50 ML BAG IVPB ×2 (07:17→19:36)
[2022-08-06] MEDS: Normal Saline Flush 10 ML SYR IVP ×2 (07:17→19:36)
[2022-08-07] MEDS: ceFAZolin 2 GM/50 ML BAG IVPB ×2 (07:21→19:29)
[2022-08-07] MEDS: Normal Saline Flush 10 ML SYR IVP (07:21)
== END 2022-08-07 23:59 | disposition home or self-care (01) ==
LOC: INF 02:05
PROVIDERS: Internal Medicine Infectious Disease; PCP Family Medicine; Visit Provider Nurse Practitioner Acute Care
DX: R78.81 Bacteremia (principal); E04.1 Nontoxic single thyroid nodule; Z45.2 Encounter for adjustment and management of vascular access device
CPT/HCPCS: 36415; 36592; 96365; 96523; 76536; 82565; 82607; 82746; 84443; 85025; J0690; J0881

== ENCOUNTER 2022-08-27 03:35 | Outpatient (RCR) | payer MEDICARE, SELFPAY ==
[2022-08-08 00:04] VITALS: BP 117/72; PULSE 75; RESP 18; TEMP 36.6
[2022-08-08] MEDS: ceFAZolin 2 GM/50 ML BAG IVPB ×2 (07:18→19:57)
[2022-08-08] MEDS: Normal Saline Flush 10 ML SYR IVP (07:35)
[2022-08-09] MEDS: Normal Saline Flush 10 ML SYR IVP (07:21)
[2022-08-09] MEDS: ceFAZolin 2 GM/50 ML BAG IVPB ×2 (07:21→19:28)
[2022-08-10] MEDS: ceFAZolin 2 GM/50 ML BAG IVPB (07:09)
[2022-08-10 07:51] LABS: Abs Immature Grans 0.01 10^3/uL (0.0-0.06); Absolute Basophil Count 0.03 10^3/uL (0.0-0.2); Absolute Eosinophil Count 0.41 10^3/uL (0.0-0.7); Absolute Lymphocyte Count 0.45 10^3/uL (1.2-3.4); Absolute Monocyte Count 0.33 10^3/uL (0.1-0.8); Absolute Neutrophil Count 1.86 10^3/uL (1.2-6.7); Eosinophils % 13.3; HCT 34.4 % (40.0-50.0); HGB 10.7 g/dL (13.5-17.5); Immature Grans % 0.3; Lymphocytes % 14.6; MCH 31.7 pg (27.0-33.0); MCHC 31.1 % (32.0-36.0); MCV 102 fL (80-95); MPV 12.9 fL (8.0-11.0); Monocytes % 10.7; Neutrophils % 60.1; RBC 3.38 10^6/uL (4.36-5.78); RDW 15.9 % (11.8-14.1); RDW-SD 58.9 fL; WBC 3.09 10^3/uL (4.4-10.8)
[2022-08-10 07:59] LABS: CREATININE 1.6 mg/dL (0.70-1.30); Estimated GFR 47.82 (mL/min/1.73m2)
[2022-08-10 08:07] LABS: Diff Comment Diff Reviewed; Platelet Count 65 10^3/uL (130-400); RBC Morphology Normal
[2022-08-15] VITALS (7 sets, daily range): BP systolic 90–136; BP diastolic 50–81; PULSE 57–70; RESP 16–18; TEMP 36.4–37; O2SAT 98–100
[2022-08-15] MEDS: Normal Saline Flush 10 ML SYR IVP (07:25)
[2022-08-15] MEDS: IMMUNE GLOBULIN 10 GM/100 ML BTL IVPB (07:36)
[2022-08-15 07:51] LABS: Abs Immature Grans 0.03 10^3/uL (0.0-0.06); Absolute Basophil Count 0.07 10^3/uL (0.0-0.2); Absolute Eosinophil Count 0.55 10^3/uL (0.0-0.7); Absolute Lymphocyte Count 0.69 10^3/uL (1.2-3.4); Absolute Monocyte Count 0.47 10^3/uL (0.1-0.8); Basophils % 1.7; Eosinophils % 13.3; HCT 36.5 % (40.0-50.0); HGB 11.9 g/dL (13.5-17.5); Immature Grans % 0.7; Lymphocytes % 16.7; MCH 33.6 pg (27.0-33.0); MCHC 32.6 % (32.0-36.0); MCV 103 fL (80-95); MPV 11.4 fL (8.0-11.0); Monocytes % 11.4; Neutrophils % 56.2; Nucleated RBC 0.5 % (0.0-0.3); RBC 3.54 10^6/uL (4.36-5.78); RDW 15.9 % (11.8-14.1); RDW-SD 59.5 fL; WBC 4.12 10^3/uL (4.4-10.8)
[2022-08-15 07:59] LABS: Absolute Neutrophil Count 2.32 10^3/uL (1.2-6.7)
[2022-08-15 08:06] LABS: C-Reactive Protein 0.99 mg/dL (0.0-0.3); CREATININE 1.6 mg/dL (0.70-1.30); Creatine Kinase 21 U/L (39-308); Diff Comment Diff Reviewed; Estimated GFR 47.82 (mL/min/1.73m2); Platelet Count 91 10^3/uL (130-400); RBC Morphology Normal
[2022-08-15] MEDS: IMMUNE GLOBULIN 40 GM/400 ML BTL IVPB ×3 (08:27→10:29)
[2022-08-15] MEDS: methylPREDNISolone SUCC 500 MG in Normal Saline 100 ML 216 MG IVPB (11:27)
[2022-08-16 07:24] VITALS: BP 130/74; PULSE 68; RESP 17; TEMP 37.1; O2SAT 98
[2022-08-16] MEDS: Normal Saline Flush 10 ML SYR IVP (07:29)
[2022-08-16] MEDS: IMMUNE GLOBULIN 10 GM/100 ML BTL IVPB (07:31)
[2022-08-16 07:50] VITALS: BP 132/71; PULSE 68; TEMP 37.1; O2SAT 98
[2022-08-16 08:04] LABS: Iron 62 ug/dL (65-175); Total Iron Binding Capacity 267 ug/dL (250-450); Transferrin Sat 23 % (20-55)
[2022-08-16 08:05] VITALS: BP 125/63; PULSE 68; TEMP 36.7; O2SAT 99
[2022-08-16] MEDS: IMMUNE GLOBULIN 40 GM/400 ML BTL IVPB ×3 (08:21→10:38)
[2022-08-16 08:35] VITALS: BP 143/70; PULSE 65; TEMP 36.6; O2SAT 99
[2022-08-16 09:05] VITALS: BP 139/73; PULSE 67; TEMP 36.6; O2SAT 99
[2022-08-16 09:35] VITALS: BP 143/70; PULSE 63; TEMP 36.5; O2SAT 98
[2022-08-27 07:35] LABS: Absolute Basophil Count 0.05 10^3/uL (0.0-0.2); Absolute Eosinophil Count 0.19 10^3/uL (0.0-0.7); Absolute Lymphocyte Count 0.57 10^3/uL (1.2-3.4); Absolute Monocyte Count 0.43 10^3/uL (0.1-0.8); Absolute Neutrophil Count 2.26 10^3/uL (1.2-6.7); Basophils % 1.4; Eosinophils % 5.4; HCT 39.7 % (40.0-50.0); HGB 12.3 g/dL (13.5-17.5); Lymphocytes % 16.3; MCH 31.1 pg (27.0-33.0); MCV 101 fL (80-95); Monocytes % 12.3; Neutrophils % 64.6; RBC 3.95 10^6/uL (4.36-5.78); RDW 15.7 % (11.8-14.1); RDW-SD 58.5 fL
[2022-08-27 07:42] LABS: CREATININE 1.8 mg/dL (0.70-1.30); Estimated GFR 41.51 (mL/min/1.73m2)
[2022-08-27 07:54] LABS: Platelet Count 49 10^3/uL (130-400)
[2022-08-27 07:56] LABS: Anisocytosis 1+; Diff Comment Diff Reviewed; Macrocytosis 1+
== END 2022-09-07 23:59 | disposition home or self-care (01) ==
LOC: INF 03:35
PROVIDERS: Internal Medicine; PCP Family Medicine; Visit Provider Nurse Practitioner Acute Care
DX: R78.81 Bacteremia (principal); D50.0 Iron deficiency anemia secondary to blood loss (chronic); D63.1 Anemia in chronic kidney disease; Z79.52 Long term (current) use of systemic steroids; M60.9 Myositis, unspecified; T46.6X5D Adverse effect of antihyperlipidemic and antiarteriosclerotic drugs, subsequent encounter
CPT/HCPCS: 36415; 36592; 82550; 96365; 96366; 96372; 96375; 82565; 83540; 83550; 85025; 86140; J0690; J0881; J1459; J2930

== ENCOUNTER 2022-08-28 01:02 | Outpatient (CLI) | payer MEDICARE, SELFPAY ==
--- NOTE | 2022-08-28 11:00 | DI.NM_ITS ---
APPROVED REPORT Exam: Pharmacologic Patient Location: Out-Patient Room/Bed: Stress Nurse: Sona Harrington RN Ordering Provider:SAMANTHA SEARSJAYE, Contact Number: [phone] BMI: 37.94 Baseline Rhythm: Sinus Rhythm Comment: Baseline ST abnormalities Indications: Acute HI, Pre mediport procedure Medical History Medical History: Heart failure, NSTEMI 08/02, DVT, thrombocytopenia, HTN, cirrhosis, anemia, CKD, DM, HCL, LE celluilitism subclavian vein thrombosis, myopathy, PE, pancytopenia, gout, sepsis, HLD, anemi a, murmur, diastolic dysfunction Cardiac Medications: Prevagin, lorsartan, invokana, furosemide, lantus, humalog,allopurinol, aspirin, Allergies: Statins, methotrexate, MS Contin Cardiac Risk Factors: Family hx, HTN, HLD, CVD, Diabetes, Obesity Previous Cardiac Procedures: None Pretest Chest Pain Characteristics: None Exercise History: Sedentary Physical Disabilities: Legs Lung Sounds: Clear to auscultation Heart Sounds: Regular, Murmur Stress Test Details Test: Pharmacologic stress was paired with low level exercise. Reason for pharmacologic stress test: physical limitation. Nuclear Acquisition: Rest Tc-99m/Stress Tc-99m 1 day Rest Isotope: Tc-99m Sestamibi. Dose: 11.5 Date: 08/28/2022 Injection Time: 1215 Stress Isotope: Tc-99m Sestamibi. Dose: 38.0 Date: 08/28/2022 Injection Time: 1335 HR Resting HR Supine: 68 bpm Max Heart Rate (APMHR): 156 bpm Resting HR Standin bpm Target HR (85% APMHR): 133 bpm Max HR Achieved: 108 bpm % of APMHR: 69 Recovery HR: 74 bpm HR response to stress: Normal HR response to stress BP Resting BP Supine: 132/82 mmHg Resting BP Standin/80 mmHg Max BP: 158/72 mmHg Recovery BP: 136/62 mmHg BP response to stress: Normal blood pressure response to stress. ECG Resting ECG: Sinus Rhythm, nonspecific ST-T abnormalities Ectopy: None Stress ECG: Sinus Rhythm, nonspecific ST-T abnormalities ST Change: Nondiagnostic resting ST abnormalities Arrhythmia: Rare PVC's Recovery ECG: Sinus Rhythm, nonspecific ST-T abnormalities Recovery ST Change: Nondiagnostic resting ST abnormalities Recovery Arrhythmia: Rare PVC's Clinical Reason for Termination: Fatigue Stress Symptoms: Dyspnea, General Fatigue Angina Score: None Rate Pressure Product: [id number] Stress ECG Conclusion 1. The resting electrocardiogram showed an IVCD like an incomplete left bundle branch block, long QTc 2. Patient underwent testing using a combination of low-level exercise and pharmacologic stress with regadenoson 3. Peak heart rate achieved was 69% of predicted for age 4. The electrocardiographic portion of the test was nondiagnostic due to abnormal EKG and an adequate heart rate 5. See MPI report Stress Test Summary STAGE HR BP SpO2 Symptoms NOTES Supine 68 132/82 98 Standing 74 136/80 98 1 min post Lexiscan injection 104 158/72 Slight SOB 3 min post Lexiscan injection 83 138/70 SOB resolving 6 min post Lexiscan injection 76 114/68 All symptoms resolved 9 min post Lexiscan injection 75 136/62 99 All symptoms resolved Patient ambulated on treadmill at a speed of 0.7 mph during lexiscan. MPI Conclusion There is a small fixed apical defect suggesting infarction. There is no significant ischemia EF is 23% with global hypokinesis Radiologist Interpretation Radiologist Interpretation by: Luiz Contreras MD Interpretation Date/Time: 08/28/2022 15:57:57
[2022-08-28] MEDS: Regadenoson 0.4 MG/5 ML SYR IVP (13:49)
== END 2022-08-28 01:22 ==
LOC: DI 01:03
PROVIDERS: PCP Family Medicine; Visit Provider Family Medicine
DX: I21.4 Non-ST elevation (NSTEMI) myocardial infarction (principal)
CPT/HCPCS: 78452; 93016; 93018; 93017; J2785

== ENCOUNTER 2022-09-18 11:57 | Outpatient (CLI) | payer MEDICARE, SELFPAY ==
--- NOTE | 2022-09-18 12:52 | DI.US_ITS ---
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 Technically limited study due to body habitus. Conclusion Left ventricle is mildly dilated. Wall thickness is normal. Ejection fraction is 30% with global hy pokinesis Normal right ventricular size and systolic function Left atrium is moderately dilated. Right atrial size is normal Aortic valve is calcified and probably trileaflet. There is mild aortic stenosis. Peak gradient is 28, mean 18 mmHg. Calculated aortic valve area is 1.9 cm??. There is trace aortic regurgitation Mild mitral annular calcification. Trace mitral regurgitation Wall motion Left Ventricle Left ventricle is mildly dilated. Left ventricular systolic function is moderate to severely decrease d. Left ventricular ejection fraction is moderate to severely decreased. There is normal left ventric ular wall thickness. There is global hypokinesis of the left ventricle. There is no ventricular septa l defect visualized. LVEF is 30%. Right Ventricle The right ventricle is normal size. The right ventricular systolic function is normal. Unable to asse ss PA pressure. Atria Left atrium is moderately dilated. The right atrium size is normal. The interatrial septum is intact with no evidence for an atrial septal defect. Aortic Valve Aortic valve is calcified. Aortic valve is probably trileaflet. Mild aortic stenosis. Peak aortic aster ve gradient is 27.9 mmHg. Highest mean aortic valve gradient is 18.4 mmHg. Calculated LILIA by the cont inuity equation is 1.90 cm2. Trace aortic regurgitation. Mitral Valve Mild mitral annular calcification. No evidence of mitral valve stenosis. Trace mitral regurgitation. Tricuspid Valve The tricuspid valve is normal in structure. There is no tricuspid valve stenosis. Trace tricuspid reg urgitation. Pulmonic Valve The pulmonary valve is normal in structure. There is no pulmonic valvular stenosis. Trace pulmonic re gurgitation. Great Vessels The aortic root is normal in size. Ascending aorta is not well visualized. Aortic arch is normal in caliber. IVC is normal in size and collapses >50% with inspiration. Pericardium There is no pericardial effusion. 2D Dimensions IVSD d PLAX 0.89 cm M: 0.6-1.2 LV Vol A2C d MOD 197.9 mL LVPW d PLAX 0.89 cm M: 0.6 - 1.2 LV Vol A4C d MOD 233.5 mL LVID d PLAX 7.29 cm M: 4.2 - 5.8 LA Area A4C s MOD 23.70 cm2 LVDs 6.35 cm M: 2.5 - 4.0 LV EF A4C MOD 28.6 % Ao Root d 3.27 cm M: 3.1 - 3.7 LV EF A2C MOD 27.9 % LV EF Teichholz 25.9 % LV EF Biplane MOD 28.2 % LVEF (Acevedo's) 28.18 % M: 52 - 72 SV 60.64 mL LV Volume 215.19 mL M: 62 - 150 LV Volume Index 93.56 mL/m2 M: 34 - 74 LV Vol Biplane MOD 215.2 mL FS 12.40 % M-Mode TAPSE 2.02 cm (M/F) >1.7 LV Diastology MV E' medial 0.083 (>0.07 m/s) E/A Ratio 1.9 LV E/e MED 13.90 (<14) MV E Vmax 1.16 (0.4-1.3 m/s) MV E' lateral 0.084 (>0.1 m/s) MV A Vmax 0.60 (0.4-1.3 m/s) LV E/e LAT 13.75 (<14) MV E/A Ratio 1.93 MV E/E' medial 13.94 MV E/E' lateral 13.78 Aortic Valve LVOT Area 4.10 cm2 AoV Area Vmax 1.90 cm2 LVOT Vmax 1.22 m/s LILIA Mean Volodymyr. 2.09 cm2 LVOT Mean Volodymyr. 1.04 m/s LVOT Peak Grad 6.0 mmHg LVOT Mean Grad 4.5 mmHg LVOT VTI 0.361 m LVOT Diam s 2.25 cm AoV Vmax 2.64 m/s Velocity Ratio 0.46 AoV Mean Volodymyr. 2.04 m/s AoV Peak Grad 27.9 mmHg LVOT SV 148.19 mL AoV Mean Grad 18.4 mmHg AoV VTI 0.675 m AoV Area VTI 2.20 cm2 Mitral Valve MV DT 224 (160-240 msec) MV PHT 65 msec MV Area PHT 3.39 cm2 MV VTI 0.334 m MV Area VTI 4.43 (4.0-6.0 cm2) Pulmonary Valve PV Vmax 0.97 (0.5-1.5 m/s) RVOT Peak Gr. 1.62 mmHg PV Peak Grad 3.7 mmHg RVOT Mean Gr. 0.80 mmHg PV Mean Grad 2.3 mmHg RVOT VTI 0.111 m PV VTI 0.207 m RVOT Vmax 0.64 m/s
== END 2022-09-18 12:17 ==
PROVIDERS: PCP Family Medicine; Visit Provider Family Medicine
DX: I21.4 Non-ST elevation (NSTEMI) myocardial infarction (principal)
CPT/HCPCS: 93306

== ENCOUNTER 2022-09-24 01:28 | Outpatient (RCR) | payer MEDICARE, SELFPAY ==
[2022-09-08 00:04] VITALS: BP 143/70; PULSE 63; RESP 17; TEMP 36.5
[2022-09-12] VITALS (8 sets, daily range): BP systolic 109–155; BP diastolic 57–87; PULSE 55–69; RESP 17–18; TEMP 36.6–36.9; O2SAT 98–100
[2022-09-12 07:30] LABS: Abs Immature Grans 0.01 10^3/uL (0.0-0.06); Absolute Basophil Count 0.06 10^3/uL (0.0-0.2); Absolute Eosinophil Count 0.58 10^3/uL (0.0-0.7); Absolute Lymphocyte Count 0.55 10^3/uL (1.2-3.4); Absolute Monocyte Count 0.35 10^3/uL (0.1-0.8); Basophils % 1.5; Eosinophils % 14.7; HCT 35.8 % (40.0-50.0); HGB 11.5 g/dL (13.5-17.5); Immature Grans % 0.3; Lymphocytes % 13.9; MCH 31.8 pg (27.0-33.0); MCHC 32.1 % (32.0-36.0); MCV 99 fL (80-95); MPV 12.1 fL (8.0-11.0); Monocytes % 8.9; Neutrophils % 60.7; RBC 3.62 10^6/uL (4.36-5.78); RDW 15.7 % (11.8-14.1); RDW-SD 57.2 fL; WBC 3.95 10^3/uL (4.4-10.8)
[2022-09-12] MEDS: methylPREDNISolone SUCC 500 MG in Normal Saline 100 ML 216 MG IVPB (07:46)
[2022-09-12] MEDS: Normal Saline Flush 10 ML SYR IVP (07:50)
[2022-09-12 07:51] LABS: C-Reactive Protein 0.67 mg/dL (0.0-0.3); CREATININE 1.7 mg/dL (0.70-1.30); Creatine Kinase 40 U/L (39-308); Estimated GFR 44.46 (mL/min/1.73m2)
[2022-09-12 07:53] LABS: Diff Comment Diff Reviewed; Platelet Count 60 10^3/uL (130-400); RBC Morphology Normal
[2022-09-12] MEDS: IMMUNE GLOBULIN 40 GM/400 ML BTL IVPB ×3 (08:15→10:59)
[2022-09-13 07:21] VITALS: BP 135/71; PULSE 60; RESP 18; TEMP 36.7; O2SAT 99
[2022-09-13] MEDS: IMMUNE GLOBULIN 40 GM/400 ML BTL IVPB ×3 (07:36→10:15)
[2022-09-13] MEDS: Normal Saline Flush 10 ML SYR IVP (07:36)
[2022-09-13 07:55] VITALS: BP 121/67; PULSE 62; RESP 16; TEMP 36.7; O2SAT 99
[2022-09-13 08:10] VITALS: BP 118/66; PULSE 61; RESP 18; TEMP 36.5; O2SAT 99
[2022-09-13 08:40] VITALS: BP 114/59; PULSE 66; RESP 18; TEMP 36.7; O2SAT 99
[2022-09-13 09:10] VITALS: BP 135/73; PULSE 63; RESP 18; TEMP 36.7; O2SAT 99
[2022-09-13 09:40] VITALS: BP 133/73; PULSE 61; RESP 18; TEMP 36.5; O2SAT 100
[2022-09-24] MEDS: Normal Saline Flush 10 ML SYR IVP (08:37)
[2022-09-24 08:57] LABS: Abs Immature Grans 0.01 10^3/uL (0.0-0.06); Absolute Basophil Count 0.04 10^3/uL (0.0-0.2); Absolute Eosinophil Count 0.31 10^3/uL (0.0-0.7); Absolute Lymphocyte Count 0.49 10^3/uL (1.2-3.4); Absolute Monocyte Count 0.56 10^3/uL (0.1-0.8); Absolute Neutrophil Count 2.83 10^3/uL (1.2-6.7); Basophils % 0.9; Eosinophils % 7.3; HCT 35.7 % (40.0-50.0); HGB 11.2 g/dL (13.5-17.5); Immature Grans % 0.2; Lymphocytes % 11.6; MCH 31.2 pg (27.0-33.0); MCHC 31.4 % (32.0-36.0); MCV 99 fL (80-95); MPV 12.4 fL (8.0-11.0); Monocytes % 13.2; Neutrophils % 66.8; RBC 3.59 10^6/uL (4.36-5.78); RDW 15.7 % (11.8-14.1); RDW-SD 57.9 fL; WBC 4.24 10^3/uL (4.4-10.8)
[2022-09-24 09:06] LABS: CREATININE 1.9 mg/dL (0.70-1.30); Estimated GFR 38.91 (mL/min/1.73m2)
[2022-09-24 09:16] LABS: Diff Comment Diff Reviewed; Platelet Count 48 10^3/uL (130-400); RBC Morphology Normal
== END 2022-10-07 23:59 | disposition home or self-care (01) ==
LOC: INF 01:28
PROVIDERS: Nurse Practitioner Acute Care; PCP Family Medicine; Visit Provider Internal Medicine
DX: D50.9 Iron deficiency anemia, unspecified (principal); D63.1 Anemia in chronic kidney disease; Z79.52 Long term (current) use of systemic steroids; D61.818 Other pancytopenia; Z45.2 Encounter for adjustment and management of vascular access device; T46.6X5D Adverse effect of antihyperlipidemic and antiarteriosclerotic drugs, subsequent encounter; M60.9 Myositis, unspecified
CPT/HCPCS: 36591; 82550; 96365; 96366; 96372; 96375; 82565; 85025; 86140; J0881; J1459; J2930

== ENCOUNTER 2022-11-06 03:01 | Outpatient (CLI) | payer MEDICARE, SELFPAY ==
--- NOTE | 2022-11-06 07:45 | DI.US_ITS ---
Exam(s) US NEEDLE LOCAL OTHER WO RAD EXAM: US NEEDLE LOCAL OTHER WO RAD CLINICAL HISTORY: thyroid nodule,ultrasound guided bx,e04.1. COMPARISON: Recent thyroid ultrasound reviewed TECHNIQUE: Ultrasound guidance was provided for ultrasound-guided FNA of left thyroid nodule. FINDINGS: Send a fluoro XXXX obtained reveal the needle in the targeted nodule concern in lobe. IMPRESSION: Successful Ultrasound-guided Localization. DATA REPOSITORY:
--- NOTE | 2022-11-06 12:50 | PAPNONF_PTH ---
PATIENT: Bucky Acevedo LOC: [facility] U#:[id number] AGE/SX: 62/M ROOM: RE11/06/[address]: Gabby Hines : 1960 BED: DIS: 11/06/2022 SPEC #: [id number] RECD: 11/06/22 13:17 STATUS: CLAUDIA DOS SANTOS #: [id number] JAGDISH: 11/06/22 12:[address]: Gabby Hines DEPT: [facility] Cytology RECD BY: Ellen Cabrera ENTERED: 11/06/22 13:19 SP TYPE: IAN CERVANTES DR: Jazmine Baer V Tissues: 1 - BODY FLUID CYTO-FINE NEEDLE ASPIRATE-[facility] Procedures: BODY FLUID CYTO-FINE NEEDLE ASPIRATE-[facility] Comments: [id number] (PATH FNA CONSULT) (REFRIGERATED)
--- NOTE | 2022-11-06 13:41 | W.PROCNOTE ---
Date of service: 11/06/22 Time of Service: 13:41 Procedure Note Date of procedure: 11/06/22 Procedure: Ultrasound-guided FNA, left thyroid nodule, pathology present Surgeon/Proceduralist/Physician: Juan Archer Procedure Diagnosis: Left thyroid nodule Procedure Indications: The patient has a left-sided thyroid nodule meeting criteria for biopsy. Options were explained to the patient regarding further management. He elected to undergo the above procedure. Consent was filled out and signed prior to surgery. Procedure Description: The patient was positioned in supine position and prepped and draped in appropriate fashion with his neck slightly extended. Ultrasound was used to localize the left-sided thyroid nodule. It measured 2.0 cm in maximal dimensions. Following this, 1% lidocaine with 1/100,000 epinephrine was injected into the skin and subcutaneous tissues overlying the nodule and multiple passes were made into the thyroid nodule with 22 and 25-gauge needles. Once cellular adequacy had been verified by pathology, 2 additional passes were made for potential Afirma testing. There was no significant bleeding. A sterile dressing was applied. Airway was stable. The patient was then allowed to sit and then to stand. His vital signs remained stable and he was able to ambulate afterwards without difficulty. He will remove the bandage tonight and not replace it. He will call with any signs of infection or if he does not hear from me with regard to pathology results within 1 week. He had no further questions. He is comfortable with the plan.
== END 2022-11-06 03:21 ==
LOC: DI 03:01
PROVIDERS: PCP Family Medicine; Visit Provider Registered Nurse Maternal Newborn
DX: E04.1 Nontoxic single thyroid nodule (principal)
CPT/HCPCS: 10005; 76942; 88104

== ENCOUNTER 2022-11-07 03:16 | Outpatient (RCR) | payer MEDICARE, SELFPAY ==
[2022-10-08] VITALS (9 sets, daily range): BP systolic 127–148; BP diastolic 67–80; PULSE 61–67; RESP 18; TEMP 36.5–37.1; O2SAT 98–100
[2022-10-08 08:01] LABS: Abs Immature Grans 0.01 10^3/uL (0.0-0.06); Absolute Basophil Count 0.05 10^3/uL (0.0-0.2); Absolute Eosinophil Count 0.58 10^3/uL (0.0-0.7); Absolute Lymphocyte Count 0.47 10^3/uL (1.2-3.4); Absolute Monocyte Count 0.36 10^3/uL (0.1-0.8); Basophils % 1.4; Eosinophils % 15.8; HCT 34.9 % (40.0-50.0); HGB 11.3 g/dL (13.5-17.5); Immature Grans % 0.3; Lymphocytes % 12.8; MCH 32.3 pg (27.0-33.0); MCHC 32.4 % (32.0-36.0); MCV 100 fL (80-95); MPV 12.3 fL (8.0-11.0); Monocytes % 9.8; Neutrophils % 59.9; RDW 15.7 % (11.8-14.1); RDW-SD 58.3 fL; WBC 3.67 10^3/uL (4.4-10.8)
[2022-10-08] MEDS: methylPREDNISolone SUCC 500 MG in Normal Saline 100 ML 216 MG IVPB (08:04)
[2022-10-08] MEDS: Normal Saline Flush 10 ML SYR IVP (08:05)
[2022-10-08 08:12] LABS: Platelet Count 57 10^3/uL (130-400)
[2022-10-08 08:14] LABS: Iron 64 ug/dL (65-175); Total Iron Binding Capacity 320 ug/dL (250-450); Transferrin Sat 20 % (20-55)
[2022-10-08 08:19] LABS: C-Reactive Protein 0.67 mg/dL (0.0-0.3); Creatine Kinase 49 U/L (39-308); Estimated GFR 36.58 (mL/min/1.73m2)
[2022-10-08] MEDS: IMMUNE GLOBULIN 40 GM/400 ML BTL IVPB ×3 (08:39→11:23)
[2022-10-08 08:43] LABS: Ferritin 974 ng/mL (26-388)
[2022-10-09] MEDS: Normal Saline Flush 10 ML SYR IVP (07:22)
[2022-10-09] MEDS: IMMUNE GLOBULIN 40 GM/400 ML BTL IVPB ×3 (07:22→10:00)
[2022-10-09 07:25] VITALS: BP 153/77; PULSE 67; RESP 18; TEMP 37.1; O2SAT 99
[2022-10-09 07:40] VITALS: BP 143/71; PULSE 63; RESP 18; TEMP 37.1; O2SAT 99
[2022-10-09 07:55] VITALS: BP 133/73; PULSE 58; RESP 18; TEMP 37.1; O2SAT 99
[2022-10-09 08:25] VITALS: BP 130/73; PULSE 58; RESP 18; TEMP 37.1; O2SAT 98
[2022-10-09 08:55] VITALS: BP 118/74; PULSE 68; RESP 18; TEMP 36.7; O2SAT 100
[2022-10-09 09:28] VITALS: BP 132/73; PULSE 55; RESP 17; TEMP 36.9; O2SAT 98
[2022-10-23] MEDS: Normal Saline Flush 10 ML SYR IVP (09:40)
[2022-10-23 09:45] LABS: Abs Immature Grans 0.01 10^3/uL (0.0-0.06); Absolute Basophil Count 0.04 10^3/uL (0.0-0.2); Absolute Eosinophil Count 0.24 10^3/uL (0.0-0.7); Absolute Lymphocyte Count 0.55 10^3/uL (1.2-3.4); Absolute Monocyte Count 0.39 10^3/uL (0.1-0.8); Absolute Neutrophil Count 3.32 10^3/uL (1.2-6.7); Basophils % 0.9; Eosinophils % 5.3; HGB 11.6 g/dL (13.5-17.5); Immature Grans % 0.2; Lymphocytes % 12.1; MCH 31.8 pg (27.0-33.0); MCHC 32.2 % (32.0-36.0); MCV 99 fL (80-95); MPV 12.5 fL (8.0-11.0); Monocytes % 8.6; Neutrophils % 72.9; RBC 3.65 10^6/uL (4.36-5.78); RDW 15.4 % (11.8-14.1); RDW-SD 56.2 fL; WBC 4.55 10^3/uL (4.4-10.8)
[2022-10-23 09:57] LABS: CREATININE 1.9 mg/dL (0.70-1.30); Estimated GFR 38.91 (mL/min/1.73m2)
[2022-10-23 10:09] LABS: Diff Comment Diff Reviewed; Platelet Count 53 10^3/uL (130-400); RBC Morphology Normal
[2022-11-07] VITALS (7 sets, daily range): BP systolic 100–138; BP diastolic 58–78; PULSE 54–66; RESP 17–20; TEMP 36.4–36.7; O2SAT 98–100
[2022-11-07] MEDS: Normal Saline Flush 10 ML SYR IVP (07:17)
[2022-11-07] MEDS: NORMAL SALINE IVPB (07:30)
[2022-11-07] MEDS: METHYLPREDNISOLONE SUCC IVPB (07:30)
[2022-11-07 07:36] LABS: Abs Immature Grans 0.01 10^3/uL (0.0-0.06); Absolute Basophil Count 0.05 10^3/uL (0.0-0.2); Absolute Eosinophil Count 0.56 10^3/uL (0.0-0.7); Absolute Lymphocyte Count 0.61 10^3/uL (1.2-3.4); Absolute Monocyte Count 0.32 10^3/uL (0.1-0.8); Absolute Neutrophil Count 2.12 10^3/uL (1.2-6.7); Basophils % 1.4; Eosinophils % 15.3; HCT 37.9 % (40.0-50.0); HGB 12.2 g/dL (13.5-17.5); Immature Grans % 0.3; Lymphocytes % 16.6; MCH 31.7 pg (27.0-33.0); MCHC 32.2 % (32.0-36.0); MCV 98 fL (80-95); MPV 11.5 fL (8.0-11.0); Monocytes % 8.7; Neutrophils % 57.7; RBC 3.85 10^6/uL (4.36-5.78); RDW 15.3 % (11.8-14.1); RDW-SD 55.2 fL; WBC 3.67 10^3/uL (4.4-10.8)
[2022-11-07 07:54] LABS: Diff Comment Diff Reviewed; Platelet Count 58 10^3/uL (130-400); RBC Morphology Normal
[2022-11-07 07:59] LABS: C-Reactive Protein 0.58 mg/dL (0.0-0.3); CREATININE 2.3 mg/dL (0.70-1.30); Creatine Kinase 69 U/L (39-308); Estimated GFR 30.93 (mL/min/1.73m2)
[2022-11-07 08:00] LABS: Iron 64 ug/dL (65-175); Total Iron Binding Capacity 342 ug/dL (250-450); Transferrin Sat 19 % (20-55)
[2022-11-07] MEDS: IMMUNE GLOBULIN 40 GM/400 ML BTL IVPB ×3 (08:03→10:38)
[2022-11-07] MEDS: IRON SUCROSE COMPLEX 200 MG in Normal Saline 100 ML 440 MG IVPB (11:31)
== END 2022-11-07 23:59 | disposition home or self-care (01) ==
LOC: INF 03:16
PROVIDERS: Internal Medicine; Nurse Practitioner Adult Health; PCP Family Medicine; Visit Provider Internal Medicine
DX: D50.9 Iron deficiency anemia, unspecified (principal); D64.9 Anemia, unspecified; Z45.2 Encounter for adjustment and management of vascular access device; D61.3 Idiopathic aplastic anemia; Z79.52 Long term (current) use of systemic steroids; D61.818 Other pancytopenia; M60.9 Myositis, unspecified; T46.6X5A Adverse effect of antihyperlipidemic and antiarteriosclerotic drugs, initial encounter; R78.81 Bacteremia
CPT/HCPCS: 36591; 82550; 96365; 96366; 96372; 96523; 82565; 82728; 83540; 83550; 85025; 86140; J0881; J1459; J1756; J2930

== ENCOUNTER 2022-12-04 01:50 | Outpatient (RCR) | payer MEDICARE, SELFPAY ==
[2022-11-08] VITALS (8 sets, daily range): BP systolic 111–135; BP diastolic 58–74; PULSE 59–71; RESP 17–18; TEMP 36.4–36.7; O2SAT 97–100
[2022-11-08] MEDS: Normal Saline Flush 10 ML SYR IVP (07:20)
[2022-11-08] MEDS: IMMUNE GLOBULIN 40 GM/400 ML BTL IVPB ×3 (07:36→10:07)
[2022-11-19] MEDS: Normal Saline Flush 10 ML SYR IVP (07:23)
[2022-11-19 07:58] LABS: Absolute Basophil Count 0.05 10^3/uL (0.0-0.2); Absolute Eosinophil Count 0.33 10^3/uL (0.0-0.7); Absolute Lymphocyte Count 0.51 10^3/uL (1.2-3.4); Absolute Monocyte Count 0.52 10^3/uL (0.1-0.8); Absolute Neutrophil Count 1.86 10^3/uL (1.2-6.7); Basophils % 1.5; Eosinophils % 10.1; HCT 34.4 % (40.0-50.0); HGB 11.2 g/dL (13.5-17.5); Lymphocytes % 15.6; MCH 32.4 pg (27.0-33.0); MCHC 32.6 % (32.0-36.0); MCV 99 fL (80-95); Monocytes % 15.9; Neutrophils % 56.9; RBC 3.46 10^6/uL (4.36-5.78); RDW 15.5 % (11.8-14.1); WBC 3.27 10^3/uL (4.4-10.8)
[2022-11-19 08:08] LABS: CREATININE 2.3 mg/dL (0.70-1.30); Estimated GFR 30.93 (mL/min/1.73m2); Magnesium 2.5 mg/dL (1.8-2.4)
[2022-11-19 08:11] LABS: Platelet Count 42 10^3/uL (130-400)
[2022-11-19 08:12] LABS: Diff Comment Diff Reviewed; RBC Morphology Normal
[2022-11-19 08:15] LABS: Hemoglobin A1C 6.7 % (<5.7)
[2022-12-03] VITALS (8 sets, daily range): BP systolic 103–160; BP diastolic 65–92; PULSE 56–63; RESP 17–20; TEMP 36.4–36.7; O2SAT 99–100
[2022-12-03 07:44] LABS: C-Reactive Protein 0.48 mg/dL (0.0-0.3); CREATININE 2.1 mg/dL (0.70-1.30); Creatine Kinase 77 U/L (39-308)
[2022-12-03 07:48] LABS: Abs Immature Grans 0.01 10^3/uL (0.0-0.06); Absolute Basophil Count 0.04 10^3/uL (0.0-0.2); Absolute Lymphocyte Count 0.48 10^3/uL (1.2-3.4); Absolute Monocyte Count 0.39 10^3/uL (0.1-0.8); Absolute Neutrophil Count 2.14 10^3/uL (1.2-6.7); Basophils % 1.1; HCT 35.9 % (40.0-50.0); HGB 11.8 g/dL (13.5-17.5); Immature Grans % 0.3; Lymphocytes % 13.5; MCH 32.7 pg (27.0-33.0); MCHC 32.9 % (32.0-36.0); MCV 99 fL (80-95); MPV 11.3 fL (8.0-11.0); Neutrophils % 60.1; RBC 3.61 10^6/uL (4.36-5.78); RDW 15.7 % (11.8-14.1); RDW-SD 57.7 fL; WBC 3.56 10^3/uL (4.4-10.8)
[2022-12-03] MEDS: METHYLPREDNISOLONE SUCC IVPB (07:51)
[2022-12-03] MEDS: Normal Saline Flush 10 ML SYR IVP (07:51)
[2022-12-03] MEDS: NORMAL SALINE IVPB (07:51)
[2022-12-03] MEDS: IMMUNE GLOBULIN 40 GM/400 ML BTL IVPB ×3 (08:15→10:46)
[2022-12-03 08:21] LABS: Diff Comment Diff Reviewed; Platelet Count 52 10^3/uL (130-400); RBC Morphology Normal
[2022-12-04] MEDS: IMMUNE GLOBULIN 40 GM/400 ML BTL IVPB ×3 (07:29→10:04)
[2022-12-04] MEDS: Normal Saline Flush 10 ML SYR IVP (07:29)
[2022-12-04 07:50] VITALS: BP 134/76; PULSE 58; RESP 18; TEMP 36.8; O2SAT 98
[2022-12-04 08:05] VITALS: BP 146/73; PULSE 58; RESP 18; TEMP 36.7; O2SAT 98
[2022-12-04 08:32] VITALS: BP 146/73; PULSE 60; RESP 17; TEMP 37; O2SAT 99
[2022-12-04 09:04] VITALS: BP 146/74; PULSE 51; RESP 16; TEMP 36.8; O2SAT 99
[2022-12-04 09:34] VITALS: BP 149/74; PULSE 57; RESP 17; TEMP 36.9; O2SAT 99
[2022-12-04 10:07] VITALS: BP 151/83; PULSE 55; TEMP 36.8; O2SAT 100
== END 2022-12-07 23:59 | disposition home or self-care (01) ==
LOC: INF 01:50
PROVIDERS: Nurse Practitioner Adult Health; PCP Family Medicine; Visit Provider Internal Medicine
DX: E11.65 Type 2 diabetes mellitus with hyperglycemia (principal); D64.9 Anemia, unspecified; D50.9 Iron deficiency anemia, unspecified; D61.818 Other pancytopenia; D63.1 Anemia in chronic kidney disease; Z79.52 Long term (current) use of systemic steroids; M60.9 Myositis, unspecified
CPT/HCPCS: 36591; 82550; 96365; 96366; 96372; 96375; 82565; 83036; 83735; 85025; 86140; J0881; J1459; J2930

== ENCOUNTER 2023-01-01 03:25 | Outpatient (RCR) | payer MEDICARE, SELFPAY ==
[2022-12-08 00:07] VITALS: BP 151/83; PULSE 55; RESP 17; TEMP 36.8
[2022-12-17] MEDS: Normal Saline Flush 10 ML SYR IVP (07:07)
[2022-12-17 07:23] LABS: Abs Immature Grans 0.01 10^3/uL (0.0-0.06); Absolute Basophil Count 0.04 10^3/uL (0.0-0.2); Absolute Eosinophil Count 0.32 10^3/uL (0.0-0.7); Absolute Monocyte Count 0.43 10^3/uL (0.1-0.8); Absolute Neutrophil Count 2.07 10^3/uL (1.2-6.7); Basophils % 1.2; Eosinophils % 9.5; HCT 34.6 % (40.0-50.0); HGB 11.2 g/dL (13.5-17.5); Immature Grans % 0.3; Lymphocytes % 14.8; MCH 32.3 pg (27.0-33.0); MCHC 32.4 % (32.0-36.0); MCV 100 fL (80-95); MPV 11.7 fL (8.0-11.0); Monocytes % 12.8; Neutrophils % 61.4; RBC 3.47 10^6/uL (4.36-5.78); RDW 15.4 % (11.8-14.1); RDW-SD 56.4 fL; WBC 3.37 10^3/uL (4.4-10.8)
[2022-12-17 07:41] LABS: CREATININE 2.1 mg/dL (0.70-1.30)
[2022-12-17 07:45] LABS: Diff Comment Diff Reviewed; Platelet Count 44 10^3/uL (130-400); RBC Morphology Normal
[2022-12-31] VITALS (7 sets, daily range): BP systolic 111–144; BP diastolic 58–84; PULSE 54–60; RESP 17–18; TEMP 36–36.6; O2SAT 99–100
[2022-12-31] MEDS: Normal Saline Flush 10 ML SYR IVP (07:37)
[2022-12-31] MEDS: NORMAL SALINE IVPB (07:39)
[2022-12-31] MEDS: METHYLPREDNISOLONE SUCC IVPB (07:39)
[2022-12-31 07:52] LABS: Abs Immature Grans 0.01 10^3/uL (0.0-0.06); Absolute Basophil Count 0.04 10^3/uL (0.0-0.2); Absolute Eosinophil Count 0.57 10^3/uL (0.0-0.7); Absolute Lymphocyte Count 0.59 10^3/uL (1.2-3.4); Absolute Monocyte Count 0.39 10^3/uL (0.1-0.8); Basophils % 1.1; Eosinophils % 15.2; HCT 36.6 % (40.0-50.0); HGB 11.8 g/dL (13.5-17.5); Immature Grans % 0.3; Lymphocytes % 15.7; MCH 32.2 pg (27.0-33.0); MCHC 32.2 % (32.0-36.0); MCV 100 fL (80-95); MPV 12.6 fL (8.0-11.0); Monocytes % 10.4; Neutrophils % 57.3; RBC 3.67 10^6/uL (4.36-5.78); RDW 15.5 % (11.8-14.1); RDW-SD 57.2 fL; WBC 3.76 10^3/uL (4.4-10.8)
[2022-12-31] MEDS: IMMUNE GLOBULIN 40 GM/400 ML BTL IVPB ×3 (08:01→10:46)
[2022-12-31 08:03] LABS: C-Reactive Protein 0.59 mg/dL (0.0-0.3); CREATININE 1.9 mg/dL (0.70-1.30); Creatine Kinase 66 U/L (39-308); Estimated GFR 38.91 (mL/min/1.73m2)
[2022-12-31 08:24] LABS: Absolute Neutrophil Count 2.15 10^3/uL (1.2-6.7)
[2022-12-31 08:25] LABS: Diff Comment Diff Reviewed; Platelet Count 54 10^3/uL (130-400); RBC Morphology Normal
[2023-01-01] VITALS (7 sets, daily range): BP systolic 131–145; BP diastolic 62–81; PULSE 54–62; RESP 17–18; TEMP 36.3–36.6; O2SAT 99–100
[2023-01-01] MEDS: Normal Saline Flush 10 ML SYR IVP (07:59)
[2023-01-01] MEDS: IMMUNE GLOBULIN 40 GM/400 ML BTL IVPB ×3 (08:00→10:36)
== END 2023-01-07 23:59 | disposition home or self-care (01) ==
LOC: INF 03:25
PROVIDERS: PCP Family Medicine; Visit Provider Internal Medicine
DX: D50.9 Iron deficiency anemia, unspecified; D61.818 Other pancytopenia; D63.1 Anemia in chronic kidney disease; G72.9 Myopathy, unspecified; Z79.52 Long term (current) use of systemic steroids; T46.6X5A Adverse effect of antihyperlipidemic and antiarteriosclerotic drugs, initial encounter
CPT/HCPCS: 36591; 82550; 96365; 96366; 96372; 82565; 85025; 86140; J0881; J1459; J2930

== ENCOUNTER → 2023-01-15 13:39 | Outpatient (BNVA) | payer MEDICARE, SELFPAY | PROVIDERS: PCP Family Medicine; Visit Provider Internal Medicine Cardiovascular Disease | DX: I11.0 Hypertensive heart disease with heart failure (principal); I50.20 Unspecified systolic (congestive) heart failure; G72.9 Myopathy, unspecified | CPT/HCPCS: 99214 ==

== ENCOUNTER 2023-01-29 04:15 | Outpatient (RCR) | payer MEDICARE, SELFPAY ==
[2023-01-08 00:04] VITALS: BP 136/62; PULSE 57; RESP 17; TEMP 36.5
[2023-01-14 07:28] LABS: Abs Immature Grans 0.01 10^3/uL (0.0-0.06); Absolute Basophil Count 0.04 10^3/uL (0.0-0.2); Absolute Eosinophil Count 0.37 10^3/uL (0.0-0.7); Absolute Lymphocyte Count 0.43 10^3/uL (1.2-3.4); Absolute Monocyte Count 0.34 10^3/uL (0.1-0.8); Basophils % 0.9; Eosinophils % 8.6; HCT 35.2 % (40.0-50.0); HGB 11.4 g/dL (13.5-17.5); Immature Grans % 0.2; MCH 32.1 pg (27.0-33.0); MCHC 32.4 % (32.0-36.0); MCV 99 fL (80-95); MPV 10.5 fL (8.0-11.0); Monocytes % 7.9; Neutrophils % 72.4; RBC 3.55 10^6/uL (4.36-5.78); RDW-SD 55.6 fL; WBC 4.28 10^3/uL (4.4-10.8)
[2023-01-14 07:40] LABS: CREATININE 2.1 mg/dL (0.70-1.30)
[2023-01-14 07:55] LABS: Diff Comment Diff Reviewed; Platelet Count 68 10^3/uL (130-400); RBC Morphology Normal
[2023-01-14] MEDS: Normal Saline Flush 10 ML SYR IVP (08:09)
[2023-01-28 07:17] VITALS: BP 143/80; PULSE 59; RESP 17; TEMP 36.8; O2SAT 100
[2023-01-28 08:00] LABS: Abs Immature Grans 0.02 10^3/uL (0.0-0.06); Absolute Basophil Count 0.05 10^3/uL (0.0-0.2); Absolute Eosinophil Count 0.45 10^3/uL (0.0-0.7); Absolute Lymphocyte Count 0.51 10^3/uL (1.2-3.4); Absolute Monocyte Count 0.38 10^3/uL (0.1-0.8); Absolute Neutrophil Count 2.28 10^3/uL (1.2-6.7); Basophils % 1.4; Eosinophils % 12.2; HCT 36.3 % (40.0-50.0); HGB 11.5 g/dL (13.5-17.5); Immature Grans % 0.5; Lymphocytes % 13.8; MCH 32.1 pg (27.0-33.0); MCHC 31.7 % (32.0-36.0); MCV 101 fL (80-95); MPV 12.2 fL (8.0-11.0); Monocytes % 10.3; Neutrophils % 61.8; RBC 3.58 10^6/uL (4.36-5.78); RDW 15.5 % (11.8-14.1); RDW-SD 58.6 fL; WBC 3.69 10^3/uL (4.4-10.8)
[2023-01-28] MEDS: METHYLPREDNISOLONE SUCC IVPB (08:05)
[2023-01-28] MEDS: NORMAL SALINE IVPB (08:05)
[2023-01-28] MEDS: Normal Saline Flush 10 ML SYR IVP (08:05)
[2023-01-28 08:14] LABS: Diff Comment Diff Reviewed; Platelet Count 56 10^3/uL (130-400); RBC Morphology Normal
[2023-01-28 08:18] LABS: CREATININE 1.7 mg/dL (0.70-1.30); Creatine Kinase 54 U/L (39-308); Estimated GFR 44.46 (mL/min/1.73m2)
[2023-01-28] MEDS: IMMUNE GLOBULIN 20 GM/200 ML BTL IVPB ×2 (08:30→09:30)
[2023-01-28 08:40] VITALS: BP 138/78; PULSE 57; RESP 17; TEMP 36.4; O2SAT 100
[2023-01-28 08:55] VITALS: BP 133/79; PULSE 60; RESP 18; TEMP 36.5; O2SAT 100
[2023-01-28 09:25] VITALS: BP 148/77; PULSE 59; RESP 18; TEMP 36.4; O2SAT 100
[2023-01-28 09:55] VITALS: BP 146/80; PULSE 56; RESP 18; TEMP 36.5; O2SAT 100
[2023-01-28] MEDS: IMMUNE GLOBULIN 40 GM/400 ML BTL IVPB ×2 (10:05→11:04)
[2023-01-28 10:25] VITALS: BP 137/81; PULSE 63; RESP 17; TEMP 36.4; O2SAT 100
[2023-01-29] VITALS (7 sets, daily range): BP systolic 138–172; BP diastolic 62–79; PULSE 50–71; RESP 18–20; TEMP 36.7–37.1; O2SAT 97–100
[2023-01-29 07:47] LABS: Iron 88 ug/dL (65-175); Total Iron Binding Capacity 246 ug/dL (250-450); Transferrin Sat 36 % (20-55)
[2023-01-29] MEDS: Normal Saline Flush 10 ML SYR IVP (07:48)
[2023-01-29] MEDS: IMMUNE GLOBULIN 40 GM/400 ML BTL IVPB ×3 (07:48→10:19)
== END 2023-02-07 23:59 | disposition home or self-care (01) ==
LOC: INF 04:15
PROVIDERS: PCP Family Medicine; Visit Provider Internal Medicine
DX: D50.9 Iron deficiency anemia, unspecified; D63.1 Anemia in chronic kidney disease; Z79.52 Long term (current) use of systemic steroids; M60.9 Myositis, unspecified; T46.6X5A Adverse effect of antihyperlipidemic and antiarteriosclerotic drugs, initial encounter
CPT/HCPCS: 36591; 82550; 96365; 96366; 96372; 82565; 83540; 83550; 85025; 86140; J0881; J1459; J1561; J2930

== ENCOUNTER 2023-02-12 08:04 | Emergency (ER) | payer MEDICARE, SELFPAY ==
[2023-02-12 08:10] VITALS: BP 136/65; PULSE 67; RESP 16; TEMP 36.6; O2SAT 100
--- NOTE | 2023-02-12 08:55 | W.ED.GENAD ---
Discharge Plan Disposition Patient Disposition: Home Condition: Good Discharge Details Clinical Impression: Abscess Primary Care Provider: Jazmine Baer V ED Provider: Kassandra Patel Home Meds and New Rx's Prescriptions: New sulfamethoxazole-trimethoprim [Bactrim DS] 800-160 mg tablet 2 tab PO BID Qty: 28 0RF No Action Aranesp (in polysorbate) 60 mcg/mL solution 60 mcg IV Q2W PRN Patient Comments: Through [facility] Venofer 200 mg iron/10 mL solution 300 mg IV .12 weeks PRN Patient Comments: Through [facility] Rx Instructions: administer over 30 mins [place] Saline Gel 1 applic topical QID PRN Rx Instructions: while awake insulin lispro [Humalog KwikPen Insulin] 100 unit/mL insulin pen 10 unit SUBCUT AC Patient Comments: INJECT 10 UNITS SUBCUTANEOUSLY THREE TIMES A DAY DIRECTED 10 UNITS AT MEAL TIME PLUS SS AT MEALS MAX UNITS PER DAY 138 UNITS change 01/16/23 per PCP record RH insulin glargine [Lantus Solostar U-100 Insulin] 100 unit/mL (3 mL) insulin pen 18 unit subcut DAILY Patient Comments: 01/16/23 per PCP med record states Per [facility] 07/24/22 RH GAMAGUARD IVIG See Rx Instructions .ROUTE .COMPLEX Rx Instructions: [place] [facility] [place]usions 2x a month ondansetron [Zofran ODT] 4 mg tablet,disintegrating 4 mg PO BID PRN carvedilol 12.5 mg tablet 12.5 mg PO BID Qty: 180 3RF Rx Instructions: must administer with a meal/food (DME) blood-glucose meter Kit See Rx Instructions .Route Rx Instructions: As directed colchicine (gout) 0.6 mg tablet 0.6 mg PO DIRECTED sodium chloride 0.9 % (flush) Syringe 10 ml IV QWEEK (DME) IV infusion pump accessory Infusion Set See Rx Instructions .Route Rx Instructions: As directed diphenhydramine HCl 50 mg capsule 50 mg PO ONCE PRN (Reason: hives) multivitamin [Daily Multi-Vitamin] 1 EACH tablet 1 tab PO DAILY allopurinol 100 mg tablet 400 mg PO DAILY aspirin 81 mg Tablet,Delayed Release (Dr/Ec) 81 mg PO DAILY Qty: 100 0RF magnesium oxide 400 mg (241.3 mg magnesium) Tablet 400 mg PO BID Qty: 60 1RF canagliflozin 100 mg tablet 100 mg PO DAILY Qty: 30 1RF nitroglycerin 0.4 mg tablet, sublingual 0.4 mg sublingual Q5-15M PRNQty: 30 0RF Rx Instructions: do not exceed 3 doses per episode losartan 50 mg tablet 75 mg PO DAILY furosemide 40 mg tablet 40 mg PO DAILY Discharge Instructions Instructions: Abscess (ED) Additional Instructions: Take the antibiotic we have prescribed twice a day (2 tablets) for the next 7 days. Take it until it is all gone. Return to the emergency department for new or worsening symptoms including fever, worsening redness/pain in your arm, or if you have any other concerns. Call your primary care doctor today to schedule an appointment to follow up on your visit here. Referrals: Jazmine Baer MD [Primary Care Provider] - Medical Decision Making 62yo M with DM, myopathy, presenting with abscess/cellulitis. Vital signs reassuring on arrival and he denies any systemic symptoms, feels overall well. Not septic. Exam ~5cm erythematous area to right forearm with central ~1.5cm indurated area with serous drainage. Incised with 2-3ml of serosangious drainage, no pamela purulence, some induration remains palpable with no clear fluid pocket on bedside ultrasound. Given surrounding cellulitis and unclear if completely drained, will treat with 7 day course of bactrim. Discharged home; discharge instructions including return precautions were reviewed with patient who verbalized understanding. All questions were answered and they are in full agreement with the plan. HPI General Mode of arrival: ambulatory. Date/Time Provider Initiated Documentation: 02/12/23 08:25. Limitations to Documentation: no limitations. Information obtained by: patient. HPI Narrative: 62yo M with DM, myopathy, presenting for skin lesion to right forearm. First noted 4 days ago, though was a bug bite or an ingrown hair. Has been worsening, increasing in size; he has tried squeezing it and been able to express some serous fluid. No fevers, rash, chills, nausea, vomiting, chest pain, shortness of breath, general malaise, or other concerns. Feels overall well and in his usual state of health. Related Data Home Medications Medication Instructions Recorded Confirmed Gamaguard Ivig See Rx Instructions .Route .COMPLEX 04/11/13 09/05/23 multivitamin (Daily Multi-Vitamin 1 tab PO DAILY 11/23/13 02/12/23 tablet) allopurinol 100 mg tablet 400 mg PO DAILY 04/10/21 02/12/23 aspirin 81 mg tablet,delayed 81 mg PO DAILY #100 tabs 04/12/21 02/12/23 release canagliflozin 100 mg tablet 100 mg PO DAILY #30 tabs 04/12/21 02/12/23 magnesium oxide 400 mg (241.3 mg 400 mg PO BID #60 tabs 04/12/21 02/12/23 magnesium) tablet nitroglycerin 0.4 mg sublingual 0.4 mg sublingual Q5-15M PRN #30 04/12/21 02/12/23 tablet tabs darbepoetin matt in polysorbat 60 60 mcg IV Q2W PRN 04/20/21 02/12/23 mcg/mL in polysorbate injection (Aranesp) ondansetron 4 mg disintegrating 4 mg PO BID PRN 04/24/21 02/12/23 tablet (Zofran ODT) losartan 50 mg tablet 75 mg PO DAILY 04/11/22 02/12/23 furosemide 40 mg tablet 40 mg PO DAILY 06/20/22 02/12/23 sodium chloride-aloe vera nasal 1 applic topical QID PRN 07/16/22 02/12/23 gel ([place] Saline nasal gel) carvedilol 12.5 mg tablet 12.5 mg PO BID #180 tabs 08/13/22 02/12/23 IV infusion pump accessory 09/12/22 02/12/23 blood-glucose meter 09/12/22 02/12/23 colchicine (gout) 0.6 mg tablet 0.6 mg PO DIRECTED 09/12/22 02/12/23 diphenhydramine HCl 50 mg capsule 50 mg PO ONCE PRN hives 09/12/22 02/12/23 sodium chloride 0.9 % (flush) 10 ml IV QWEEK 09/12/22 02/12/23 iron sucrose 200 mg iron/10 mL 300 mg IV .12 weeks PRN 01/15/23 02/12/23 intravenous solution (Venofer) insulin glargine 100 unit/mL (3 18 unit subcut DAILY 01/16/23 02/12/23 mL) subcutaneous pen (Lantus Solostar U-100 Insulin) insulin lispro 100 unit/mL 10 unit subcut AC 01/16/23 02/12/23 subcutaneous pen (Humalog KwikPen (U-100) Insulin) sulfamethoxazole 800 2 tab PO BID #28 tabs 02/12/23 mg-trimethoprim 160 mg tablet (Bactrim DS) Previous Rx's Medication Instructions Recorded aspirin 81 mg tablet,delayed 81 mg PO DAILY #100 tabs 04/12/21 release canagliflozin 100 mg tablet 100 mg PO DAILY #30 tabs 04/12/21 magnesium oxide 400 mg (241.3 mg 400 mg PO BID #60 tabs 04/12/21 magnesium) tablet nitroglycerin 0.4 mg sublingual 0.4 mg sublingual Q5-15M PRN #30 04/12/21 tablet tabs carvedilol 12.5 mg tablet 12.5 mg PO BID #180 tabs 08/13/22 sulfamethoxazole 800 2 tab PO BID #28 tabs 02/12/23 mg-trimethoprim 160 mg tablet (Bactrim DS) Allergies Allergy/AdvReac Type Severity Reaction Status Date / Time methotrexate Allergy Skin Rash Verified 02/12/23 08:15 morphine Allergy Itching Verified 02/12/23 08:15 Trcaqgz-IBD-JpZ Reductase Allergy NECROTIZING Verified 02/12/23 08:15 Inhibitor MYOPATHY [Qgxodjg-Iaf-Dry Reductase Inhibitor] General Stated Complaint: Cellulitis AURA: 3 Review of Systems Narrative: see HPI PFSH All Active Problems (Updated 02/12/23 @ 08:56 by Kassandra Patel MD) Abscess (Acute) Heart failure (Acute) Non-ST elevation [place] (NSTEMI) (Acute) Discharge planning issues (Acute) Encounter for deep vein thrombosis (DVT) prophylaxis (Acute) Acute bronchitis (Acute) Ulcer of foot (Acute) Thyroid nodule (Acute) Fever (Acute) HFrEF (heart failure with reduced ejection fraction) (Acute) 08/30 EF: 23% /global wall hypokinesis/fixed apical defect nuclear stress test Thrombocytopenia (Chronic) Acute on chronic renal insufficiency (Acute) Lower extremity cellulitis (Acute) Renal insufficiency (Chronic) Impacted cerumen of both ears (Acute) HTN (hypertension) (Chronic) Cirrhosis of liver (Chronic) Subclavian vein thrombosis (Acute) Myopathy (Acute) Barretts esophagus (Acute) Hearing deficit (Acute) Epistaxis (Acute) Chronic anemia (Chronic) Edema (Acute) Heart murmur, systolic (Acute) CALDERON (dyspnea on exertion) (Acute) Diastolic dysfunction (Acute) Excess ear wax (Acute) Weakness of both legs (Acute) Nocturnal cough (Acute) Medication monitoring encounter (Acute) Skin cancer, basal cell (Acute) face Elevated troponin (Acute) Medical History Acute non-ST segment elevation myocardial infarction Anemia Bacteremia Basal cell carcinoma, face Cardiomyopathy Chronic kidney disease Diabetes mellitus Diabetic ulcer of right foot Duodenitis DVT (deep venous thrombosis) Essential hypertension Gout History of deep vein thrombosis History of shingles Hypercholesterolemia Hyperlipidemia Hypomagnesemia Inclusion body myositis Kidney stone 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 Sister Diabetes PATERNAL UNCLE Personal history of malignant neoplasm STOMACH Social History Smoking/Tobacco Use Status: Never Smoking risk assessment performed?: Yes Alcohol Intake: never Drug use: Never Substance use type: does not use Do you feel safe at home: Yes Do you feel safe in your relationship?: Yes Exam Narrative Exam Narrative: General: Alert, well appearing, well nourished, in no acute distress. Head: Normocephalic, atraumatic Neck: Trachea midline, Neck supple. Cardiac: No cyanosis. Resp: No respiratory distress. Speaking in full sentences. Extremities: No deformities. No peripheral edema. Neurologic: GCS 15. Moves all extremities freely against gravity Skin: ~5cm erythematous area to right forearm with central ~1.5cm indurated area with serous drainage. Course Vital Signs Vital signs: Vital Signs Temperature 36.6 C 02/12/23 08:10 Pulse 67 02/12/23 08:10 Respiratory Rate 16 02/12/23 08:10 Blood Pressure 136/65 02/12/23 08:10 Pulse Oximetry 100 02/12/23 08:10 Temperature 36.6 C 02/12/23 08:10 Temperature Source Oral 02/12/23 08:10 Pulse 67 02/12/23 08:10 Respiratory Rate 16 02/12/23 08:10 Respiratory Effort Normal 02/12/23 08:14 Blood Pressure 136/65 02/12/23 08:10 Blood Pressure Position Sitting 02/12/23 08:10 Pulse Oximetry 100 02/12/23 08:10 Oxygen Delivery Method Room Air 02/12/23 08:10 Oxygen Flow Rate 0 02/12/23 08:10 Pain Level 10 02/12/23 08:10 Procedures Abscess I/D Site: Upper Extremity Side (if applicable): Right Sedation/analgesia: None Technique: Incised with #11 Blade Amount of fluid expressed (mL): 3 Irrigation: No Packing used?: None
== END 2023-02-12 09:02 | disposition home or self-care (01) ==
PROVIDERS: Emergency Provider Student in an Organized Health Care Education/Training Program; PCP Family Medicine
DX: L02.414 Cutaneous abscess of left upper limb (principal); E11.9 Type 2 diabetes mellitus without complications
CPT/HCPCS: 10060; 36591; 96372; 82565; 85025; J0881

== ENCOUNTER 2023-02-27 02:53 | Outpatient (RCR) | payer MEDICARE, SELFPAY ==
[2023-02-08 00:14] VITALS: BP 172/76; PULSE 55; RESP 20; TEMP 36.7
[2023-02-12 07:28] LABS: Absolute Basophil Count 0.04 10^3/uL (0.0-0.2); Absolute Eosinophil Count 0.28 10^3/uL (0.0-0.7); Absolute Lymphocyte Count 0.47 10^3/uL (1.2-3.4); Absolute Monocyte Count 0.38 10^3/uL (0.1-0.8); Absolute Neutrophil Count 2.65 10^3/uL (1.2-6.7); Eosinophils % 7.3; HCT 33.4 % (40.0-50.0); HGB 10.5 g/dL (13.5-17.5); Lymphocytes % 12.3; MCH 32.2 pg (27.0-33.0); MCHC 31.4 % (32.0-36.0); MCV 103 fL (80-95); MPV 12.2 fL (8.0-11.0); Monocytes % 9.9; Neutrophils % 69.5; RBC 3.26 10^6/uL (4.36-5.78); RDW 15.1 % (11.8-14.1); RDW-SD 57.8 fL; WBC 3.82 10^3/uL (4.4-10.8)
[2023-02-12 07:34] LABS: CREATININE 1.9 mg/dL (0.70-1.30); Estimated GFR 38.91 (mL/min/1.73m2)
[2023-02-12 07:51] LABS: Diff Comment Diff Reviewed; Platelet Count 41 10^3/uL (130-400); RBC Morphology Normal
[2023-02-12] MEDS: Normal Saline Flush 10 ML SYR IVP (07:59)
[2023-02-25] MEDS: Normal Saline Flush 10 ML SYR IVP (07:31)
[2023-02-25 07:33] LABS: Abs Immature Grans 0.01 10^3/uL (0.0-0.06); Absolute Basophil Count 0.05 10^3/uL (0.0-0.2); Absolute Lymphocyte Count 0.46 10^3/uL (1.2-3.4); Absolute Neutrophil Count 1.93 10^3/uL (1.2-6.7); Basophils % 1.5; Eosinophils % 15.4; HCT 34.2 % (40.0-50.0); HGB 10.8 g/dL (13.5-17.5); Immature Grans % 0.3; Lymphocytes % 14.2; MCH 31.5 pg (27.0-33.0); MCHC 31.6 % (32.0-36.0); MCV 100 fL (80-95); Monocytes % 9.2; Neutrophils % 59.4; RBC 3.43 10^6/uL (4.36-5.78); RDW 15.3 % (11.8-14.1); RDW-SD 56.4 fL; WBC 3.25 10^3/uL (4.4-10.8)
[2023-02-25 07:42] LABS: Diff Comment Diff Reviewed; Platelet Count 51 10^3/uL (130-400); RBC Morphology Normal
[2023-02-25 07:49] LABS: C-Reactive Protein 0.45 mg/dL (0.0-0.3); CREATININE 3.1 mg/dL (0.70-1.30); Creatine Kinase 58 U/L (39-308); Estimated GFR 21.62 (mL/min/1.73m2)
[2023-02-25] MEDS: NORMAL SALINE IVPB (07:57)
[2023-02-25] MEDS: METHYLPREDNISOLONE SUCC IVPB (07:57)
[2023-02-25] MEDS: IMMUNE GLOBULIN 40 GM/400 ML BTL IVPB ×3 (08:18→10:51)
[2023-02-25 08:20] VITALS: BP 122/69; PULSE 62; RESP 17; TEMP 36.6; O2SAT 100
[2023-02-25 08:35] VITALS: BP 107/69; PULSE 58; RESP 17; TEMP 36.6; O2SAT 100
[2023-02-25 08:50] VITALS: BP 102/65; PULSE 59; RESP 17; TEMP 36.6; O2SAT 100
[2023-02-25 09:20] VITALS: BP 113/67; PULSE 59; RESP 17; TEMP 36.6; O2SAT 100
[2023-02-25 09:50] VITALS: BP 129/76; PULSE 60; RESP 17; TEMP 36.7; O2SAT 100
[2023-02-25 10:19] VITALS: BP 123/72; PULSE 61; RESP 18; TEMP 36.5; O2SAT 100
[2023-02-27] VITALS (8 sets, daily range): BP systolic 109–143; BP diastolic 61–82; PULSE 58–66; RESP 17–18; TEMP 36.1–36.5; O2SAT 99–100
[2023-02-27] MEDS: IMMUNE GLOBULIN 40 GM/400 ML BTL IVPB ×3 (07:11→09:51)
[2023-02-27] MEDS: Normal Saline Flush 10 ML SYR IVP (10:46)
== END 2023-03-09 23:59 | disposition home or self-care (01) ==
LOC: INF 02:53
PROVIDERS: Internal Medicine; PCP Family Medicine; Visit Provider Internal Medicine
DX: D64.9 Anemia, unspecified (principal); D50.9 Iron deficiency anemia, unspecified; D63.1 Anemia in chronic kidney disease; Z79.52 Long term (current) use of systemic steroids; D61.818 Other pancytopenia; Z45.2 Encounter for adjustment and management of vascular access device; M60.9 Myositis, unspecified
CPT/HCPCS: 36591; 82550; 96365; 96366; 96372; 82565; 85025; 86140; J0881; J1459; J2930

== ENCOUNTER 2023-02-28 20:25 | Outpatient (REF) | payer MEDICARE, SELFPAY ==
[2023-02-28 19:47] LABS: CREATININE 2.8 mg/dL (0.70-1.30); Estimated GFR 24.43 (mL/min/1.73m2)
== END 2023-02-28 20:26 | disposition home or self-care (01) ==
LOC: NCHCN 20:25
PROVIDERS: PCP Family Medicine; Visit Provider Family Medicine
DX: N18.31 Chronic kidney disease, stage 3a (principal)
CPT/HCPCS: 82565

== ENCOUNTER 2023-04-08 02:56 | Outpatient (RCR) | payer MEDICARE, SELFPAY ==
[2023-03-10 00:15] VITALS: BP 131/74; PULSE 59; RESP 17; TEMP 36.4
[2023-03-11] MEDS: Normal Saline Flush 10 ML SYR IVP (07:10)
[2023-03-11 07:35] LABS: Absolute Basophil Count 0.04 10^3/uL (0.0-0.2); Absolute Eosinophil Count 0.29 10^3/uL (0.0-0.7); Absolute Lymphocyte Count 0.44 10^3/uL (1.2-3.4); Absolute Monocyte Count 0.38 10^3/uL (0.1-0.8); Basophils % 1.2; Eosinophils % 8.9; HCT 34.9 % (40.0-50.0); HGB 11.2 g/dL (13.5-17.5); Lymphocytes % 13.5; MCH 32.4 pg (27.0-33.0); MCHC 32.1 % (32.0-36.0); MCV 101 fL (80-95); MPV 10.9 fL (8.0-11.0); Monocytes % 11.7; Neutrophils % 64.7; RBC 3.46 10^6/uL (4.36-5.78); RDW 15.5 % (11.8-14.1); RDW-SD 57.6 fL; WBC 3.25 10^3/uL (4.4-10.8)
[2023-03-11 08:10] LABS: ALT 56 U/L (16-63); AST 52 U/L (15-37); Albumin 2.9 g/dL (3.4-5.0); Alkaline Phosphatase 177 U/L (46-116); Anion Gap 5.1 mmol/L (3-11); Bilirubin, Total 0.6 mg/dL (0.2-1.0); CO2 26.9 mmol/L (21.0-32.0); CREATININE 1.9 mg/dL (0.70-1.30); Calcium 9.5 mg/dL (8.5-10.1); Chloride 105 mmol/L (98-107); Creatine Kinase 42 U/L (39-308); Estimated GFR 38.91 (mL/min/1.73m2); Glucose 96 mg/dL (74-106); Potassium 4.7 mmol/L (3.5-5.1); Sodium 137 mmol/L (136-145); Total Protein 8.7 g/dL (6.4-8.2)
[2023-03-11 08:14] LABS: Diff Comment Diff Reviewed; Platelet Count 43 10^3/uL (130-400); RBC Morphology Normal
[2023-03-11 08:19] LABS: BUN 82 mg/dL (7-18)
[2023-03-25] VITALS (7 sets, daily range): BP systolic 117–146; BP diastolic 68–81; PULSE 59–66; RESP 17; TEMP 36.4–36.6; O2SAT 99–100
[2023-03-25] MEDS: Normal Saline Flush 10 ML SYR IVP (07:19)
[2023-03-25 07:32] LABS: Absolute Basophil Count 0.05 10^3/uL (0.0-0.2); Absolute Eosinophil Count 0.43 10^3/uL (0.0-0.7); Absolute Lymphocyte Count 0.47 10^3/uL (1.2-3.4); Absolute Monocyte Count 0.36 10^3/uL (0.1-0.8); Absolute Neutrophil Count 1.89 10^3/uL (1.2-6.7); Basophils % 1.6; Eosinophils % 13.4; HCT 36.4 % (40.0-50.0); HGB 11.3 g/dL (13.5-17.5); Lymphocytes % 14.7; MCH 31.2 pg (27.0-33.0); MCV 101 fL (80-95); MPV 11.6 fL (8.0-11.0); Monocytes % 11.3; RBC 3.62 10^6/uL (4.36-5.78); RDW 15.2 % (11.8-14.1); RDW-SD 56.8 fL
[2023-03-25] MEDS: methylPREDNISolone SUCC 125 MG VIAL IVP (07:33)
[2023-03-25 07:43] LABS: Diff Comment Diff Reviewed; Platelet Count 48 10^3/uL (130-400); RBC Morphology Normal
[2023-03-25] MEDS: IMMUNE GLOBULIN 40 GM/400 ML BTL IVPB ×3 (07:44→10:22)
[2023-03-25 07:46] LABS: CREATININE 1.9 mg/dL (0.70-1.30); Creatine Kinase 71 U/L (39-308); Estimated GFR 38.91 (mL/min/1.73m2)
[2023-03-26] MEDS: Normal Saline Flush 10 ML SYR IVP (07:38)
[2023-03-26] MEDS: IMMUNE GLOBULIN 40 GM/400 ML BTL IVPB ×3 (07:43→10:19)
[2023-03-26 07:45] VITALS: BP 158/72; PULSE 62; RESP 17; TEMP 36.6; O2SAT 100
[2023-03-26 08:00] VITALS: BP 134/71; PULSE 63; RESP 17; TEMP 36.6; O2SAT 100
[2023-03-26 08:15] VITALS: BP 119/57; PULSE 59; RESP 17; TEMP 36.5; O2SAT 99
[2023-03-26 08:45] VITALS: BP 128/61; PULSE 55; RESP 17; TEMP 36.5; O2SAT 99
[2023-03-26 09:15] VITALS: BP 138/60; PULSE 58; RESP 17; TEMP 36.6; O2SAT 100
[2023-03-26 09:45] VITALS: BP 146/72; PULSE 61; RESP 17; TEMP 36.4; O2SAT 100
[2023-04-08 07:23] LABS: Absolute Basophil Count 0.03 10^3/uL (0.0-0.2); Absolute Eosinophil Count 0.16 10^3/uL (0.0-0.7); Absolute Lymphocyte Count 0.41 10^3/uL (1.2-3.4); Absolute Neutrophil Count 2.48 10^3/uL (1.2-6.7); Basophils % 0.9; Eosinophils % 4.7; HCT 34.1 % (40.0-50.0); HGB 10.6 g/dL (13.5-17.5); Lymphocytes % 12.1; MCH 31.5 pg (27.0-33.0); MCHC 31.1 % (32.0-36.0); MCV 101 fL (80-95); MPV 12.5 fL (8.0-11.0); Monocytes % 8.9; Neutrophils % 73.4; RBC 3.37 10^6/uL (4.36-5.78); RDW 15.4 % (11.8-14.1); RDW-SD 57.4 fL; WBC 3.38 10^3/uL (4.4-10.8)
[2023-04-08 07:35] LABS: CREATININE 1.9 mg/dL (0.70-1.30); Estimated GFR 38.66 (mL/min/1.73m2)
[2023-04-08 07:49] LABS: Diff Comment Diff Reviewed; Platelet Count 47 10^3/uL (130-400); RBC Morphology Normal
[2023-04-08] MEDS: Normal Saline Flush 10 ML SYR IVP (08:00)
== END 2023-04-09 23:59 | disposition home or self-care (01) ==
LOC: INF 02:56
PROVIDERS: Internal Medicine; Student in an Organized Health Care Education/Training Program; PCP Family Medicine; Visit Provider Internal Medicine
DX: D61.818 Other pancytopenia; T46.6X5A Adverse effect of antihyperlipidemic and antiarteriosclerotic drugs, initial encounter; Z79.52 Long term (current) use of systemic steroids; D50.0 Iron deficiency anemia secondary to blood loss (chronic); D64.9 Anemia, unspecified; D63.1 Anemia in chronic kidney disease; M60.9 Myositis, unspecified
CPT/HCPCS: 36591; 80053; 82550; 96365; 96366; 96372; 96374; 96375; 96523; 82565; 85025; 86140; J0881; J1459; J2930

== ENCOUNTER 2023-05-07 03:02 | Outpatient (RCR) | payer MEDICARE, SELFPAY ==
[2023-04-10 00:20] VITALS: BP 131/74; PULSE 59; RESP 17; TEMP 36.4
[2023-04-22] VITALS (7 sets, daily range): BP systolic 116–152; BP diastolic 66–78; PULSE 65–72; RESP 16–17; TEMP 36.6–36.9; O2SAT 100
[2023-04-22] MEDS: Normal Saline Flush 10 ML SYR IVP (07:16)
[2023-04-22 07:20] LABS: Absolute Basophil Count 0.04 10^3/uL (0.0-0.2); Absolute Eosinophil Count 0.31 10^3/uL (0.0-0.7); Absolute Lymphocyte Count 0.39 10^3/uL (1.2-3.4); Absolute Monocyte Count 0.32 10^3/uL (0.1-0.8); Absolute Neutrophil Count 3.26 10^3/uL (1.2-6.7); Basophils % 0.9; Eosinophils % 7.2; HCT 35.9 % (40.0-50.0); HGB 11.4 g/dL (13.5-17.5); MCH 31.5 pg (27.0-33.0); MCHC 31.8 % (32.0-36.0); MCV 99 fL (80-95); MPV 12.9 fL (8.0-11.0); Monocytes % 7.4; Neutrophils % 75.5; RBC 3.62 10^6/uL (4.36-5.78); RDW 15.1 % (11.8-14.1); WBC 4.32 10^3/uL (4.4-10.8)
[2023-04-22] MEDS: methylPREDNISolone SUCC 125 MG VIAL IVP (07:36)
[2023-04-22] MEDS: IMMUNE GLOBULIN 40 GM/400 ML BTL IVPB ×3 (07:40→10:17)
[2023-04-22 07:41] LABS: C-Reactive Protein 0.74 mg/dL (0.0-0.3); Creatine Kinase 74 U/L (39-308); Estimated GFR 36.36 (mL/min/1.73m2)
[2023-04-22 07:46] LABS: Platelet Count 48 10^3/uL (130-400)
[2023-04-23] VITALS (7 sets, daily range): BP systolic 132–142; BP diastolic 70–79; PULSE 55–66; RESP 16–17; TEMP 36.6–36.9; O2SAT 99–100
[2023-04-23] MEDS: Normal Saline Flush 10 ML SYR IVP (07:12)
[2023-04-23 08:04] LABS: Iron 53 ug/dL (65-175); Total Iron Binding Capacity 268 ug/dL (250-450); Transferrin Sat 20 % (20-55)
[2023-04-23] MEDS: IMMUNE GLOBULIN 40 GM/400 ML BTL IVPB ×3 (08:05→10:43)
[2023-05-07] MEDS: Normal Saline Flush 10 ML SYR IVP (11:05)
[2023-05-07 11:28] LABS: Abs Immature Grans 0.01 10^3/uL (0.0-0.06); Absolute Basophil Count 0.05 10^3/uL (0.0-0.2); Absolute Eosinophil Count 0.43 10^3/uL (0.0-0.7); Absolute Lymphocyte Count 0.57 10^3/uL (1.2-3.4); Absolute Monocyte Count 0.37 10^3/uL (0.1-0.8); Absolute Neutrophil Count 3.88 10^3/uL (1.2-6.7); Basophils % 0.9; Eosinophils % 8.1; HCT 34.9 % (40.0-50.0); HGB 11.2 g/dL (13.5-17.5); Immature Grans % 0.2; Lymphocytes % 10.7; MCH 31.7 pg (27.0-33.0); MCHC 32.1 % (32.0-36.0); MCV 99 fL (80-95); MPV 12.7 fL (8.0-11.0); Neutrophils % 73.1; RBC 3.53 10^6/uL (4.36-5.78); RDW 15.1 % (11.8-14.1); RDW-SD 54.8 fL; WBC 5.31 10^3/uL (4.4-10.8)
[2023-05-07 11:33] LABS: Estimated GFR 36.36 (mL/min/1.73m2)
[2023-05-07 11:44] LABS: Anisocytosis 1+; Diff Comment PLT Morph Reviewed; Platelet Count 55 10^3/uL (130-400)
== END 2023-05-09 23:59 | disposition home or self-care (01) ==
LOC: INF 03:02
PROVIDERS: Internal Medicine Hematology & Oncology; PCP Family Medicine; Visit Provider Internal Medicine
DX: M60.9 Myositis, unspecified (principal); R78.81 Bacteremia; D50.9 Iron deficiency anemia, unspecified; D64.9 Anemia, unspecified; D61.818 Other pancytopenia; N18.31 Chronic kidney disease, stage 3a; D63.1 Anemia in chronic kidney disease
CPT/HCPCS: 36591; 82550; 96365; 96366; 96372; 82565; 83540; 83550; 85025; 86140; J0881; J1459; J2930

== ENCOUNTER 2023-06-04 01:46 | Outpatient (RCR) | payer MEDICARE, SELFPAY ==
[2023-05-10 00:24] VITALS: BP 131/74; PULSE 59; RESP 17; TEMP 36.4
[2023-05-20] VITALS (7 sets, daily range): BP systolic 109–142; BP diastolic 67–84; PULSE 64–71; RESP 17–18; TEMP 36.7–36.9; O2SAT 98–99
[2023-05-20] MEDS: methylPREDNISolone SUCC 125 MG VIAL IVP (07:42)
[2023-05-20] MEDS: IMMUNE GLOBULIN 40 GM/400 ML BTL IVPB ×3 (07:49→10:26)
[2023-05-20] MEDS: Normal Saline Flush 10 ML SYR IVP (07:49)
[2023-05-20 08:01] LABS: Abs Immature Grans 0.01 10^3/uL (0.0-0.06); Absolute Basophil Count 0.04 10^3/uL (0.0-0.2); Absolute Eosinophil Count 0.36 10^3/uL (0.0-0.7); Absolute Lymphocyte Count 0.31 10^3/uL (1.2-3.4); Absolute Monocyte Count 0.17 10^3/uL (0.1-0.8); Absolute Neutrophil Count 2.52 10^3/uL (1.2-6.7); Basophils % 1.2; Eosinophils % 10.6; HCT 34.9 % (40.0-50.0); HGB 11.1 g/dL (13.5-17.5); Immature Grans % 0.3; Lymphocytes % 9.1; MCH 31.4 pg (27.0-33.0); MCHC 31.8 % (32.0-36.0); MCV 99 fL (80-95); MPV 13.2 fL (8.0-11.0); Neutrophils % 73.8; RBC 3.54 10^6/uL (4.36-5.78); RDW 14.7 % (11.8-14.1); RDW-SD 53.8 fL; WBC 3.41 10^3/uL (4.4-10.8)
[2023-05-20 08:12] LABS: Diff Comment Diff Reviewed; Platelet Count 45 10^3/uL (130-400); RBC Morphology Normal
[2023-05-20 08:17] LABS: C-Reactive Protein 0.61 mg/dL (0.0-0.3); Creatine Kinase 80 U/L (39-308); Estimated GFR 36.36 (mL/min/1.73m2)
[2023-05-21] VITALS (7 sets, daily range): BP systolic 123–135; BP diastolic 69–79; PULSE 61–64; RESP 16–17; TEMP 36.4–36.7; O2SAT 98–100
[2023-05-21] MEDS: Normal Saline Flush 10 ML SYR IVP (07:16)
[2023-05-21] MEDS: IMMUNE GLOBULIN 40 GM/400 ML BTL IVPB ×3 (07:56→10:32)
[2023-06-04] MEDS: Normal Saline Flush 10 ML SYR IVP (07:31)
== END 2023-06-09 23:59 | disposition home or self-care (01) ==
LOC: INF 01:46
PROVIDERS: PCP Family Medicine; Visit Provider Internal Medicine
DX: D61.818 Other pancytopenia; D50.9 Iron deficiency anemia, unspecified; M60.9 Myositis, unspecified
CPT/HCPCS: 36591; 82550; 96365; 96366; 96372; 96523; 82565; 85025; 86140; J0881; J1459; J2930

== ENCOUNTER 2023-06-04 01:49 | Outpatient (RCR) | payer MEDICARE, SELFPAY ==
[2023-06-04 07:33] LABS: Absolute Basophil Count 0.05 10^3/uL (0.0-0.2); Absolute Eosinophil Count 0.44 10^3/uL (0.0-0.7); Absolute Lymphocyte Count 0.38 10^3/uL (1.2-3.4); Absolute Monocyte Count 0.38 10^3/uL (0.1-0.8); Absolute Neutrophil Count 2.66 10^3/uL (1.2-6.7); Basophils % 1.3; Eosinophils % 11.3; HCT 35.5 % (40.0-50.0); HGB 11.2 g/dL (13.5-17.5); Lymphocytes % 9.7; MCH 30.9 pg (27.0-33.0); MCHC 31.5 % (32.0-36.0); MCV 98 fL (80-95); MPV 11.4 fL (8.0-11.0); Monocytes % 9.7; RBC 3.62 10^6/uL (4.36-5.78); RDW 14.6 % (11.8-14.1); RDW-SD 53.5 fL; WBC 3.91 10^3/uL (4.4-10.8)
[2023-06-04 07:34] LABS: Platelet Count 46 10^3/uL (130-400)
[2023-06-04 07:40] LABS: CREATININE 1.9 mg/dL (0.70-1.30); Estimated GFR 38.66 (mL/min/1.73m2)
[2023-06-04 07:49] LABS: Diff Comment PLT Morph Reviewed; RBC Morphology Normal
== END 2023-06-09 23:59 | disposition home or self-care (01) ==
LOC: INF 01:49
PROVIDERS: PCP Family Medicine; Visit Provider Internal Medicine
DX: R78.81 Bacteremia; D50.9 Iron deficiency anemia, unspecified; D63.1 Anemia in chronic kidney disease; G72.9 Myopathy, unspecified; Z79.52 Long term (current) use of systemic steroids; D61.818 Other pancytopenia
CPT/HCPCS: 82565; 85025

== ENCOUNTER 2023-06-17 09:59 | Outpatient (REF) | payer MEDICARE, SELFPAY ==
[2023-06-17 07:38] LABS: Absolute Basophil Count 0.02 10^3/uL (0.0-0.2); Absolute Eosinophil Count 0.41 10^3/uL (0.0-0.7); Absolute Lymphocyte Count 0.33 10^3/uL (1.2-3.4); Absolute Monocyte Count 0.17 10^3/uL (0.1-0.8); Absolute Neutrophil Count 2.15 10^3/uL (1.2-6.7); Basophils % 0.6; Eosinophils % 13.3; HCT 34.1 % (40.0-50.0); HGB 10.8 g/dL (13.5-17.5); Lymphocytes % 10.7; MCH 31.1 pg (27.0-33.0); MCHC 31.7 % (32.0-36.0); MCV 98 fL (80-95); MPV 12.7 fL (8.0-11.0); Monocytes % 5.5; Neutrophils % 69.9; RBC 3.47 10^6/uL (4.36-5.78); RDW 14.8 % (11.8-14.1); RDW-SD 53.2 fL; WBC 3.08 10^3/uL (4.4-10.8)
[2023-06-17 07:53] LABS: Diff Comment Diff Reviewed; Platelet Count 52 10^3/uL (130-400); RBC Morphology Normal
[2023-06-17 07:58] LABS: C-Reactive Protein 0.57 mg/dL (0.0-0.3); CREATININE 1.9 mg/dL (0.70-1.30); Creatine Kinase 89 U/L (39-308); Estimated GFR 38.66 (mL/min/1.73m2)
== END 2023-06-17 10:00 | disposition home or self-care (01) ==
LOC: LBN 09:59
PROVIDERS: PCP Family Medicine; Visit Provider Nurse Practitioner Adult Health
DX: D50.9 Iron deficiency anemia, unspecified (principal)
CPT/HCPCS: 82550; 82565; 85025; 86140

== ENCOUNTER 2023-07-01 03:44 | Outpatient (RCR) | payer MEDICARE, SELFPAY ==
[2023-06-10 00:23] VITALS: BP 131/74; PULSE 59; RESP 17; TEMP 36.4
[2023-06-17] VITALS (7 sets, daily range): BP systolic 102–135; BP diastolic 61–79; PULSE 56–63; RESP 17; TEMP 36.5–36.7; O2SAT 99–100
[2023-06-17] MEDS: methylPREDNISolone SUCC 125 MG VIAL IVP (07:34)
[2023-06-17] MEDS: Normal Saline Flush 10 ML SYR IVP (07:35)
[2023-06-17] MEDS: IMMUNE GLOBULIN 40 GM/400 ML BTL IVPB ×3 (07:38→10:20)
[2023-06-18] VITALS (8 sets, daily range): BP systolic 115–146; BP diastolic 51–73; PULSE 66–84; RESP 17–18; TEMP 36.4–36.9; O2SAT 93–99
[2023-06-18] MEDS: IMMUNE GLOBULIN 40 GM/400 ML BTL IVPB ×3 (07:49→10:17)
[2023-06-18] MEDS: Normal Saline Flush 10 ML SYR IVP (07:49)
[2023-07-01 07:18] LABS: Abs Immature Grans 0.01 10^3/uL (0.0-0.06); Absolute Basophil Count 0.06 10^3/uL (0.0-0.2); Absolute Eosinophil Count 0.43 10^3/uL (0.0-0.7); Absolute Lymphocyte Count 0.43 10^3/uL (1.2-3.4); Absolute Monocyte Count 0.24 10^3/uL (0.1-0.8); Absolute Neutrophil Count 2.77 10^3/uL (1.2-6.7); Basophils % 1.5; Eosinophils % 10.9; HCT 32.2 % (40.0-50.0); HGB 10.2 g/dL (13.5-17.5); Immature Grans % 0.3; Lymphocytes % 10.9; MCH 31.6 pg (27.0-33.0); MCHC 31.7 % (32.0-36.0); MCV 100 fL (80-95); MPV 12.7 fL (8.0-11.0); Monocytes % 6.1; Neutrophils % 70.3; RBC 3.23 10^6/uL (4.36-5.78); RDW 15.4 % (11.8-14.1); RDW-SD 56.6 fL; WBC 3.94 10^3/uL (4.4-10.8)
[2023-07-01 07:27] LABS: Diff Comment Diff Reviewed; Platelet Count 51 10^3/uL (130-400); RBC Morphology Normal
[2023-07-01 07:30] LABS: Estimated GFR 36.36 (mL/min/1.73m2)
[2023-07-01] MEDS: Normal Saline Flush 10 ML SYR IVP (07:38)
== END 2023-07-10 23:59 | disposition home or self-care (01) ==
LOC: INF 03:44
PROVIDERS: PCP Family Medicine; Visit Provider Internal Medicine
DX: D50.9 Iron deficiency anemia, unspecified; M60.9 Myositis, unspecified; D63.1 Anemia in chronic kidney disease; N18.9 Chronic kidney disease, unspecified; Z79.52 Long term (current) use of systemic steroids
CPT/HCPCS: 36591; 96365; 96366; 96372; 82565; 85025; J0881; J1459; J2930

== ENCOUNTER → 2023-07-18 13:28 | Outpatient (BNVA) | payer MEDICARE, SELFPAY | PROVIDERS: PCP Family Medicine; Visit Provider Internal Medicine Interventional Cardiology | DX: I51.89 Other ill-defined heart diseases (principal); I10 Essential (primary) hypertension; I26.99 Other pulmonary embolism without acute cor pulmonale; R01.1 Cardiac murmur, unspecified; I42.9 Cardiomyopathy, unspecified; R77.8 Other specified abnormalities of plasma proteins; I42.0 Dilated cardiomyopathy; G72.9 Myopathy, unspecified; I50.20 Unspecified systolic (congestive) heart failure | CPT/HCPCS: 99213 ==

== ENCOUNTER 2023-07-29 04:37 | Outpatient (RCR) | payer MEDICARE, SELFPAY ==
[2023-07-11 00:25] VITALS: BP 131/74; PULSE 59; RESP 17; TEMP 36.4
[2023-07-15] VITALS (7 sets, daily range): BP systolic 99–150; BP diastolic 59–83; PULSE 61–71; RESP 17–18; TEMP 36.5–36.9; O2SAT 98–100
[2023-07-15] MEDS: methylPREDNISolone SUCC 125 MG VIAL 50 MG IV (07:13)
[2023-07-15] MEDS: Normal Saline Flush 10 ML SYR IVP (07:14)
[2023-07-15] MEDS: IMMUNE GLOBULIN 40 GM/400 ML BTL IVPB ×3 (07:24→09:58)
[2023-07-15 07:59] LABS: Abs Immature Grans 0.01 10^3/uL (0.0-0.06); Absolute Basophil Count 0.04 10^3/uL (0.0-0.2); Absolute Eosinophil Count 0.45 10^3/uL (0.0-0.7); Absolute Lymphocyte Count 0.38 10^3/uL (1.2-3.4); Absolute Monocyte Count 0.35 10^3/uL (0.1-0.8); Absolute Neutrophil Count 2.33 10^3/uL (1.2-6.7); Basophils % 1.1; Eosinophils % 12.6; HCT 32.5 % (40.0-50.0); HGB 10.3 g/dL (13.5-17.5); Immature Grans % 0.3; Lymphocytes % 10.7; MCH 31.4 pg (27.0-33.0); MCHC 31.7 % (32.0-36.0); MCV 99 fL (80-95); Monocytes % 9.8; Neutrophils % 65.5; RBC 3.28 10^6/uL (4.36-5.78); RDW 14.9 % (11.8-14.1); RDW-SD 54.4 fL; WBC 3.56 10^3/uL (4.4-10.8)
[2023-07-15 08:10] LABS: Diff Comment Diff Reviewed; Platelet Count 51 10^3/uL (130-400); RBC Morphology Normal
[2023-07-15 08:14] LABS: C-Reactive Protein 0.67 mg/dL (<or=0.5); CREATININE 1.9 mg/dL (0.70-1.30); Creatine Kinase 80 U/L (39-308); Estimated GFR 38.66 (mL/min/1.73m2)
[2023-07-16] VITALS (7 sets, daily range): BP systolic 125–136; BP diastolic 61–79; PULSE 63–69; RESP 17–18; TEMP 36.6–36.8; O2SAT 99–100
[2023-07-16] MEDS: Normal Saline Flush 10 ML SYR IVP (07:18)
[2023-07-16] MEDS: IMMUNE GLOBULIN 40 GM/400 ML BTL IVPB ×3 (07:18→09:50)
[2023-07-16 07:53] LABS: Iron 82 ug/dL (65-175); Total Iron Binding Capacity 303 ug/dL (250-450); Transferrin Sat 27 % (20-55)
[2023-07-29] MEDS: Normal Saline Flush 10 ML SYR IVP (07:30)
[2023-07-29 08:03] LABS: Abs Immature Grans 0.01 10^3/uL (0.0-0.06); Absolute Basophil Count 0.03 10^3/uL (0.0-0.2); Absolute Eosinophil Count 0.24 10^3/uL (0.0-0.7); Absolute Lymphocyte Count 0.33 10^3/uL (1.2-3.4); Absolute Monocyte Count 0.21 10^3/uL (0.1-0.8); Absolute Neutrophil Count 2.15 10^3/uL (1.2-6.7); Eosinophils % 8.1; HCT 28.7 % (40.0-50.0); HGB 8.9 g/dL (13.5-17.5); Immature Grans % 0.3; Lymphocytes % 11.1; MCH 30.5 pg (27.0-33.0); MCV 98 fL (80-95); MPV 12.7 fL (8.0-11.0); Monocytes % 7.1; Neutrophils % 72.4; RBC 2.92 10^6/uL (4.36-5.78); WBC 2.97 10^3/uL (4.4-10.8)
[2023-07-29 08:20] LABS: Platelet Count 50 10^3/uL (130-400)
[2023-07-29 08:21] LABS: Diff Comment Diff Reviewed; RBC Morphology Normal
[2023-07-29 08:27] LABS: Iron 44 ug/dL (65-175); Total Iron Binding Capacity 283 ug/dL (250-450); Transferrin Sat 16 % (20-55)
[2023-07-29 08:32] LABS: ALT 39 U/L (16-63); AST 40 U/L (15-37); Albumin 2.6 g/dL (3.4-5.0); Alkaline Phosphatase 174 U/L (46-116); Anion Gap 7.8 mmol/L (3-11); BUN 71 mg/dL (7-18); Bilirubin, Total 0.6 mg/dL (0.2-1.0); CO2 26.2 mmol/L (21.0-32.0); Chloride 105 mmol/L (98-107); Estimated GFR 36.36 (mL/min/1.73m2); Ferritin 300 ng/mL (26-388); Glucose 195 mg/dL (74-106); Potassium 4.9 mmol/L (3.5-5.1); Sodium 139 mmol/L (136-145); Total Protein 7.7 g/dL (6.4-8.2)
== END 2023-08-08 23:59 | disposition home or self-care (01) ==
LOC: INF 04:37
PROVIDERS: PCP Family Medicine; Visit Provider Internal Medicine
DX: D50.9 Iron deficiency anemia, unspecified; N18.31 Chronic kidney disease, stage 3a; D63.1 Anemia in chronic kidney disease; D61.818 Other pancytopenia; M60.9 Myositis, unspecified; Z79.52 Long term (current) use of systemic steroids
CPT/HCPCS: 36591; 80053; 82550; 96365; 96366; 96372; 96374; 96375; 82565; 82728; 83540; 83550; 85025; 86140; J0881; J1459; J2930

== ENCOUNTER 2023-08-26 05:06 | Outpatient (RCR) | payer MEDICARE, SELFPAY ==
[2023-08-09 00:24] VITALS: BP 131/74; PULSE 59; RESP 17; TEMP 36.4
[2023-08-12] VITALS (7 sets, daily range): BP systolic 112–149; BP diastolic 67–78; PULSE 57–68; RESP 18–20; TEMP 36.7–37.2; O2SAT 100
[2023-08-12] MEDS: methylPREDNISolone SUCC 125 MG VIAL 50 MG IV (07:21)
[2023-08-12] MEDS: Normal Saline Flush 10 ML SYR IVP (07:35)
[2023-08-12] MEDS: IMMUNE GLOBULIN 40 GM/400 ML BTL IVPB ×3 (07:37→10:14)
[2023-08-12 08:25] LABS: Abs Immature Grans 0.01 10^3/uL (0.0-0.06); Absolute Basophil Count 0.06 10^3/uL (0.0-0.2); Absolute Monocyte Count 0.39 10^3/uL (0.1-0.8); Absolute Neutrophil Count 2.36 10^3/uL (1.2-6.7); Basophils % 1.6; Eosinophils % 13.1; HGB 10.2 g/dL (13.5-17.5); Immature Grans % 0.3; Lymphocytes % 13.1; MCH 30.6 pg (27.0-33.0); MCHC 30.9 % (32.0-36.0); MCV 99 fL (80-95); MPV 12.5 fL (8.0-11.0); Monocytes % 10.2; Neutrophils % 61.7; RBC 3.33 10^6/uL (4.36-5.78); RDW 14.6 % (11.8-14.1); RDW-SD 53.1 fL; WBC 3.82 10^3/uL (4.4-10.8)
[2023-08-12 08:46] LABS: CREATININE 1.9 mg/dL (0.70-1.30); Creatine Kinase 88 U/L (39-308); Estimated GFR 38.66 (mL/min/1.73m2); Platelet Count 61 10^3/uL (130-400)
[2023-08-13] MEDS: IMMUNE GLOBULIN 40 GM/400 ML BTL IVPB ×3 (07:34→10:15)
[2023-08-13] MEDS: Normal Saline Flush 10 ML SYR IVP (07:34)
[2023-08-13 07:49] VITALS: BP 110/68; PULSE 64; RESP 18; TEMP 37; O2SAT 99
[2023-08-13 07:58] VITALS: BP 128/72; PULSE 57; RESP 18; TEMP 36.8; O2SAT 100
[2023-08-13 08:16] VITALS: BP 129/70; PULSE 68; RESP 20; TEMP 37; O2SAT 100
[2023-08-13 08:32] VITALS: BP 108/67; PULSE 61; RESP 21; TEMP 36.9; O2SAT 100
[2023-08-13 08:48] VITALS: BP 122/74; PULSE 60; RESP 22; TEMP 36.7; O2SAT 100
[2023-08-13 09:20] VITALS: BP 125/74; PULSE 57; RESP 24; TEMP 37; O2SAT 100
[2023-08-26 07:25] LABS: Abs Immature Grans 0.01 10^3/uL (0.0-0.06); Absolute Basophil Count 0.05 10^3/uL (0.0-0.2); Absolute Eosinophil Count 0.33 10^3/uL (0.0-0.7); Absolute Lymphocyte Count 0.53 10^3/uL (1.2-3.4); Absolute Monocyte Count 0.35 10^3/uL (0.1-0.8); Absolute Neutrophil Count 2.06 10^3/uL (1.2-6.7); Basophils % 1.5; Eosinophils % 9.9; HCT 34.5 % (40.0-50.0); HGB 10.7 g/dL (13.5-17.5); Immature Grans % 0.3; Lymphocytes % 15.9; MCH 30.8 pg (27.0-33.0); MCV 99 fL (80-95); MPV 11.1 fL (8.0-11.0); Monocytes % 10.5; Neutrophils % 61.9; RBC 3.47 10^6/uL (4.36-5.78); RDW-SD 54.7 fL; WBC 3.33 10^3/uL (4.4-10.8)
[2023-08-26 07:33] LABS: CREATININE 2.1 mg/dL (0.70-1.30); Estimated GFR 34.29 (mL/min/1.73m2)
[2023-08-26 07:38] LABS: Diff Comment Diff Reviewed; Platelet Count 58 10^3/uL (130-400); RBC Morphology Normal
[2023-08-26] MEDS: Normal Saline Flush 10 ML SYR IVP (07:47)
== END 2023-09-08 23:59 | disposition home or self-care (01) ==
LOC: INF 05:06
PROVIDERS: Nurse Practitioner Adult Health; PCP Family Medicine; Visit Provider Internal Medicine
DX: D50.9 Iron deficiency anemia, unspecified (principal); D63.1 Anemia in chronic kidney disease; Z79.52 Long term (current) use of systemic steroids; D64.9 Anemia, unspecified; D61.818 Other pancytopenia; M60.9 Myositis, unspecified; N18.9 Chronic kidney disease, unspecified
CPT/HCPCS: 36591; 82550; 96365; 96366; 96372; 82565; 85025; 86140; J0881; J1459; J2930

== ENCOUNTER 2023-10-08 05:31 | Outpatient (RCR) | payer MEDICARE, SELFPAY ==
[2023-09-09 00:20] VITALS: BP 131/74; PULSE 59; RESP 17; TEMP 36.4
[2023-09-10] VITALS (7 sets, daily range): BP systolic 111–146; BP diastolic 66–82; PULSE 59–70; RESP 16–18; TEMP 36.1–36.9; O2SAT 100
[2023-09-10] MEDS: methylPREDNISolone SUCC 125 MG VIAL 50 MG IV (07:16)
[2023-09-10] MEDS: Normal Saline Flush 10 ML SYR IVP (07:17)
[2023-09-10] MEDS: IMMUNE GLOBULIN 40 GM/400 ML BTL IVPB ×3 (07:29→10:15)
[2023-09-10 08:25] LABS: Abs Immature Grans 0.01 10^3/uL (0.0-0.06); Absolute Basophil Count 0.06 10^3/uL (0.0-0.2); Absolute Eosinophil Count 0.43 10^3/uL (0.0-0.7); Absolute Lymphocyte Count 0.55 10^3/uL (1.2-3.4); Absolute Monocyte Count 0.46 10^3/uL (0.1-0.8); Absolute Neutrophil Count 2.32 10^3/uL (1.2-6.7); Basophils % 1.6; Eosinophils % 11.2; HCT 34.2 % (40.0-50.0); HGB 10.9 g/dL (13.5-17.5); Immature Grans % 0.3; Lymphocytes % 14.4; MCH 30.6 pg (27.0-33.0); MCHC 31.9 % (32.0-36.0); MCV 96 fL (80-95); Neutrophils % 60.5; RBC 3.56 10^6/uL (4.36-5.78); RDW 14.7 % (11.8-14.1); RDW-SD 52.1 fL; WBC 3.83 10^3/uL (4.4-10.8)
[2023-09-10 08:43] LABS: C-Reactive Protein 0.53 mg/dL (<or=0.5); CREATININE 1.8 mg/dL (0.70-1.30); Creatine Kinase 82 U/L (39-308); Estimated GFR 41.26 (mL/min/1.73m2)
[2023-09-10 08:45] LABS: Diff Comment Diff Reviewed; Platelet Count 61 10^3/uL (130-400); RBC Morphology Normal
[2023-09-11] VITALS (7 sets, daily range): BP systolic 114–133; BP diastolic 56–77; PULSE 58–76; RESP 16–18; TEMP 36.3–36.8; O2SAT 97–100
[2023-09-11] MEDS: Normal Saline Flush 10 ML SYR IVP (07:32)
[2023-09-11] MEDS: IMMUNE GLOBULIN 40 GM/400 ML BTL IVPB ×3 (07:32→10:07)
[2023-09-23 07:18] LABS: Abs Immature Grans 0.01 10^3/uL (0.0-0.06); Absolute Basophil Count 0.05 10^3/uL (0.0-0.2); Absolute Eosinophil Count 0.43 10^3/uL (0.0-0.7); Absolute Lymphocyte Count 0.44 10^3/uL (1.2-3.4); Absolute Monocyte Count 0.29 10^3/uL (0.1-0.8); Absolute Neutrophil Count 2.69 10^3/uL (1.2-6.7); Basophils % 1.3; HCT 35.3 % (40.0-50.0); HGB 10.8 g/dL (13.5-17.5); Immature Grans % 0.3; Lymphocytes % 11.3; MCH 29.9 pg (27.0-33.0); MCHC 30.6 % (32.0-36.0); MCV 98 fL (80-95); MPV 12.6 fL (8.0-11.0); Monocytes % 7.4; Neutrophils % 68.7; RBC 3.61 10^6/uL (4.36-5.78); RDW 15.5 % (11.8-14.1); RDW-SD 55.5 fL; WBC 3.91 10^3/uL (4.4-10.8)
[2023-09-23 07:21] LABS: CREATININE 1.8 mg/dL (0.70-1.30); Estimated GFR 41.26 (mL/min/1.73m2)
[2023-09-23] MEDS: Normal Saline Flush 10 ML SYR IVP (07:30)
[2023-09-23 07:51] LABS: Platelet Count 53 10^3/uL (130-400)
[2023-10-07] VITALS (7 sets, daily range): BP systolic 91–143; BP diastolic 59–78; PULSE 55–66; RESP 18–20; TEMP 36.4–36.6; O2SAT 100
[2023-10-07] MEDS: methylPREDNISolone SUCC 125 MG VIAL 50 MG IV (07:16)
[2023-10-07] MEDS: Normal Saline Flush 10 ML SYR IVP (07:16)
[2023-10-07 07:18] LABS: Absolute Basophil Count 0.05 10^3/uL (0.0-0.2); Absolute Eosinophil Count 0.47 10^3/uL (0.0-0.7); Absolute Lymphocyte Count 0.42 10^3/uL (1.2-3.4); Absolute Monocyte Count 0.46 10^3/uL (0.1-0.8); Absolute Neutrophil Count 1.87 10^3/uL (1.2-6.7); Basophils % 1.5; Eosinophils % 14.4; HCT 33.8 % (40.0-50.0); HGB 10.7 g/dL (13.5-17.5); Lymphocytes % 12.8; MCH 30.3 pg (27.0-33.0); MCHC 31.7 % (32.0-36.0); MCV 96 fL (80-95); MPV 12.7 fL (8.0-11.0); Monocytes % 14.1; Neutrophils % 57.2; RBC 3.53 10^6/uL (4.36-5.78); RDW 15.4 % (11.8-14.1); RDW-SD 53.6 fL; WBC 3.27 10^3/uL (4.4-10.8)
[2023-10-07 07:37] LABS: Diff Comment PLT Morph Reviewed; Hypochromasia 1+; Macrocytosis 1+; Platelet Count 50 10^3/uL (130-400)
[2023-10-07] MEDS: IMMUNE GLOBULIN 40 GM/400 ML BTL IVPB ×3 (07:37→10:10)
[2023-10-07 08:02] LABS: C-Reactive Protein 0.64 mg/dL (<or=0.5); Creatine Kinase 77 U/L (39-308); Estimated GFR 36.36 (mL/min/1.73m2); TSH (W/Ref FT4) 2.11 uIU/mL (0.36-3.74)
[2023-10-07 08:13] LABS: Calculated LDL 96 mg/dL (<100); Cholesterol 147 mg/dL (<200); HDL Cholesterol 36 mg/dL (40-60); Triglyceride 78 mg/dL (<150)
[2023-10-07 08:19] LABS: Hemoglobin A1C 6.5 % (<5.7)
[2023-10-07 11:24] LABS: Iron 44 ug/dL (65-175); Total Iron Binding Capacity 329 ug/dL (250-450); Transferrin Sat 13 % (20-55)
[2023-10-07 17:29] LABS: PSA, Screening 0.2 ng/mL (<=4.5)
[2023-10-08] VITALS (8 sets, daily range): BP systolic 118–137; BP diastolic 60–82; PULSE 58–67; RESP 17; TEMP 36–36.8; O2SAT 99–100
[2023-10-08] MEDS: Normal Saline Flush 10 ML SYR IVP (07:03)
[2023-10-08] MEDS: IRON SUCROSE COMPLEX 300 MG in Normal Saline 250 ML 176.667 MG IVPB (07:39)
[2023-10-08] MEDS: IMMUNE GLOBULIN 40 GM/400 ML BTL IVPB ×3 (09:23→11:53)
== END 2023-10-08 23:59 | disposition home or self-care (01) ==
LOC: INF 05:31
PROVIDERS: Internal Medicine Hematology & Oncology; Nurse Practitioner Adult Health; PCP Family Medicine; Visit Provider Internal Medicine
DX: D50.9 Iron deficiency anemia, unspecified (principal); D63.1 Anemia in chronic kidney disease; Z79.52 Long term (current) use of systemic steroids; D64.9 Anemia, unspecified; D61.818 Other pancytopenia; N18.31 Chronic kidney disease, stage 3a; D50.0 Iron deficiency anemia secondary to blood loss (chronic); M60.9 Myositis, unspecified; Z12.5 Encounter for screening for malignant neoplasm of prostate
CPT/HCPCS: 36591; 80061; 82550; 84153; 96365; 96366; 96372; 96374; 96375; 96523; 82565; 83036; 83540; 83550; 84443; 85025; 86140; J0881; J1459; J1756; J2919

== ENCOUNTER 2023-11-06 04:53 | Outpatient (RCR) | payer MEDICARE, SELFPAY ==
[2023-10-09 00:09] VITALS: BP 131/74; PULSE 59; RESP 17; TEMP 36.4
[2023-10-21 07:24] LABS: Abs Immature Grans 0.01 10^3/uL (0.0-0.06); Absolute Basophil Count 0.03 10^3/uL (0.0-0.2); Absolute Eosinophil Count 0.33 10^3/uL (0.0-0.7); Absolute Lymphocyte Count 0.39 10^3/uL (1.2-3.4); Absolute Monocyte Count 0.24 10^3/uL (0.1-0.8); Absolute Neutrophil Count 2.16 10^3/uL (1.2-6.7); Basophils % 0.9 %; Eosinophils % 10.4 %; HCT 35.4 % (40.0-50.0); Immature Grans % 0.3 %; Lymphocytes % 12.3 %; MCH 29.8 pg (27.0-33.0); MCHC 31.1 % (32.0-36.0); MCV 96 fL (80-95); Monocytes % 7.6 %; Neutrophils % 68.5 %; RBC 3.69 10^6/uL (4.36-5.78); RDW 16.2 % (11.8-14.1); RDW-SD 57.6 fL; WBC 3.16 10^3/uL (4.4-10.8)
[2023-10-21 07:36] LABS: Diff Comment PLT Morph Reviewed; Platelet Count 50 10^3/uL (130-400); RBC Morphology Normal
[2023-10-21 07:38] LABS: CREATININE 2.2 mg/dL (0.70-1.30); Estimated GFR 32.43 (mL/min/1.73m2)
[2023-10-21] MEDS: Normal Saline Flush 10 ML SYR IVP (07:50)
[2023-11-05] VITALS (8 sets, daily range): BP systolic 104–129; BP diastolic 60–79; PULSE 60–70; RESP 17; TEMP 36.6–37; O2SAT 98–100
[2023-11-05 07:11] LABS: Abs Immature Grans 0.01 10^3/uL (0.0-0.06); Absolute Basophil Count 0.04 10^3/uL (0.0-0.2); Absolute Eosinophil Count 0.46 10^3/uL (0.0-0.7); Absolute Lymphocyte Count 0.52 10^3/uL (1.2-3.4); Absolute Monocyte Count 0.27 10^3/uL (0.1-0.8); Absolute Neutrophil Count 2.84 10^3/uL (1.2-6.7); Eosinophils % 11.1 %; HGB 11.6 g/dL (13.5-17.5); Immature Grans % 0.2 %; Lymphocytes % 12.6 %; MCH 30.2 pg (27.0-33.0); MCHC 31.4 % (32.0-36.0); MCV 96 fL (80-95); MPV 10.7 fL (8.0-11.0); Monocytes % 6.5 %; Neutrophils % 68.6 %; RBC 3.84 10^6/uL (4.36-5.78); RDW 16.7 % (11.8-14.1); RDW-SD 59.5 fL; WBC 4.14 10^3/uL (4.4-10.8)
[2023-11-05] MEDS: methylPREDNISolone SUCC 125 MG VIAL 50 MG IV (07:18)
[2023-11-05] MEDS: Normal Saline Flush 10 ML SYR IVP (07:19)
[2023-11-05 07:25] LABS: C-Reactive Protein 0.91 mg/dL (<or=0.5); Creatine Kinase 96 U/L (39-308); Estimated GFR 36.36 (mL/min/1.73m2)
[2023-11-05 07:28] LABS: Diff Comment Diff Reviewed; Platelet Count 59 10^3/uL (130-400); RBC Morphology Normal
[2023-11-05] MEDS: IMMUNE GLOBULIN 40 GM/400 ML BTL IVPB ×3 (07:44→10:21)
[2023-11-06] VITALS (7 sets, daily range): BP systolic 108–129; BP diastolic 64–76; PULSE 64–68; RESP 17–18; TEMP 36.7–37; O2SAT 98–100
[2023-11-06] MEDS: Normal Saline Flush 10 ML SYR IVP (07:21)
[2023-11-06] MEDS: IMMUNE GLOBULIN 40 GM/400 ML BTL IVPB ×3 (07:32→10:06)
== END 2023-11-08 23:59 | disposition home or self-care (01) ==
LOC: INF 04:53
PROVIDERS: Internal Medicine; Nurse Practitioner Adult Health; PCP Family Medicine; Visit Provider Internal Medicine
DX: D50.9 Iron deficiency anemia, unspecified; D63.1 Anemia in chronic kidney disease; Z79.52 Long term (current) use of systemic steroids; M60.9 Myositis, unspecified; D61.818 Other pancytopenia; Z45.2 Encounter for adjustment and management of vascular access device
CPT/HCPCS: 36591; 82550; 96365; 96366; 96372; 96375; 96523; 82565; 85025; 86140; J0881; J1459; J2919

== ENCOUNTER → 2023-11-07 03:11 | Outpatient (CLI) | payer MEDICARE, SELFPAY ==
--- NOTE | 2023-11-07 07:45 | DI.US_ITS ---
Exam(s) US THYROID EXAM: US THYROID CLINICAL HISTORY: Assess for change, benign biopsy, THYROID NODULE, E04.1. TECHNIQUE: Ultrasound thyroid performed using standard protocol. COMPARISON: US US THYROID from 08/02/2022 FINDINGS: ISTHMUS: 3.7 mm RIGHT LOBE: Size: 5.0 x 2.3 x 2.3 cm Echogenicity: Normal. Vascularity: Normal. Nodules: Stable small cysts are seen in the right lobe of the thyroid gland. LEFT LOBE: Size: 5 x 2.0 x 2.8 cm Echogenicity: Normal. Vascularity: Normal. Nodules: There is a mixed 2.4 x 2.0 x 1.6 cm nodule again seen in the left lobe of the thyroid gland. This nodule was previously biopsied and received a benign result. It is taller than wide and does contain a macrocalcification. This is consistent with a TI rads level 5 nodule. OTHER FINDINGS: None. IMPRESSION: 2.4 x 2.0 x 1.6 cm mixed left lobe thyroid nodule. Previously this nodule measured 1.6 x 1.1 x 1.9 c m. DATA REPOSITORY:
== END ==
PROVIDERS: PCP Family Medicine; Visit Provider Otolaryngology
DX: E04.1 Nontoxic single thyroid nodule (principal)
CPT/HCPCS: 76536

== ENCOUNTER → 2023-11-14 13:18 | Outpatient (BNVA) | payer MEDICARE, SELFPAY | PROVIDERS: PCP Family Medicine; Visit Provider Internal Medicine Cardiovascular Disease | DX: I35.0 Nonrheumatic aortic (valve) stenosis (principal); E78.5 Hyperlipidemia, unspecified; I42.0 Dilated cardiomyopathy | CPT/HCPCS: 99213 ==

== ENCOUNTER 2023-12-04 01:17 | Outpatient (RCR) | payer MEDICARE, SELFPAY ==
[2023-11-09 00:06] VITALS: BP 131/74; PULSE 59; RESP 17; TEMP 36.4
[2023-11-19 11:39] LABS: Abs Immature Grans 0.01 10^3/uL (0.0-0.06); Absolute Basophil Count 0.05 10^3/uL (0.0-0.2); Absolute Eosinophil Count 0.38 10^3/uL (0.0-0.7); Basophils % 1.2 %; Eosinophils % 9.2 %; HCT 36.2 % (40.0-50.0); HGB 11.6 g/dL (13.5-17.5); Immature Grans % 0.2 %; Lymphocytes % 9.7 %; MCH 30.9 pg (27.0-33.0); MCV 97 fL (80-95); MPV 12.7 fL (8.0-11.0); Monocytes % 9.7 %; Platelet Count 56 10^3/uL (130-400); RBC 3.75 10^6/uL (4.36-5.78); RDW 17.2 % (11.8-14.1); RDW-SD 60.9 fL; WBC 4.14 10^3/uL (4.4-10.8)
[2023-11-19 11:49] LABS: Estimated GFR 36.36 (mL/min/1.73m2)
[2023-11-19] MEDS: Normal Saline Flush 10 ML SYR IVP (12:01)
[2023-12-03] VITALS (8 sets, daily range): BP systolic 98–124; BP diastolic 62–80; PULSE 57–63; RESP 17; TEMP 36.6–36.7; O2SAT 99–100
[2023-12-03] MEDS: IMMUNE GLOBULIN 40 GM/400 ML BTL IVPB ×3 (07:32→10:19)
[2023-12-03] MEDS: Normal Saline Flush 10 ML SYR IVP (07:36)
[2023-12-03 08:05] LABS: Abs Immature Grans 0.02 10^3/uL (0.0-0.06); Absolute Basophil Count 0.05 10^3/uL (0.0-0.2); Absolute Eosinophil Count 0.56 10^3/uL (0.0-0.7); Absolute Lymphocyte Count 0.44 10^3/uL (1.2-3.4); Absolute Monocyte Count 0.31 10^3/uL (0.1-0.8); Absolute Neutrophil Count 1.86 10^3/uL (1.2-6.7); Basophils % 1.5 %; Eosinophils % 17.3 %; HGB 11.4 g/dL (13.5-17.5); Immature Grans % 0.6 %; Lymphocytes % 13.6 %; MCH 31.1 pg (27.0-33.0); MCHC 31.7 % (32.0-36.0); MCV 98 fL (80-95); MPV 12.6 fL (8.0-11.0); Monocytes % 9.6 %; Neutrophils % 57.4 %; RBC 3.66 10^6/uL (4.36-5.78); RDW 16.9 % (11.8-14.1); RDW-SD 61.8 fL; WBC 3.24 10^3/uL (4.4-10.8)
[2023-12-03 08:17] LABS: Diff Comment Diff Reviewed; Platelet Count 51 10^3/uL (130-400); RBC Morphology Normal
[2023-12-03 08:24] LABS: C-Reactive Protein 0.64 mg/dL (<or=0.5); CREATININE 2.8 mg/dL (0.70-1.30); Creatine Kinase 77 U/L (39-308); Estimated GFR 24.28 (mL/min/1.73m2)
[2023-12-04] VITALS (9 sets, daily range): BP systolic 99–144; BP diastolic 46–82; PULSE 58–67; RESP 17–18; TEMP 36.6–37; O2SAT 97–100
[2023-12-04] MEDS: Normal Saline Flush 10 ML SYR IVP (07:37)
[2023-12-04] MEDS: IMMUNE GLOBULIN 40 GM/400 ML BTL IVPB ×2 (07:37→09:25)
== END 2023-12-08 23:59 | disposition home or self-care (01) ==
LOC: INF 01:17
PROVIDERS: Internal Medicine; PCP Family Medicine; Visit Provider Family Medicine
DX: D64.9 Anemia, unspecified (principal); M60.9 Myositis, unspecified
CPT/HCPCS: 36591; 82550; 96365; 96366; 96372; 96374; 96375; 82565; 85025; 86140; J0881; J1459

== ENCOUNTER → 2024-01-02 13:53 | Outpatient (CLI) | payer MEDICARE, SELFPAY ==
--- NOTE | 2024-01-02 14:40 | DI.RAD_ITS ---
Exam(s) XR CHEST 2V PA LATERAL EXAM: XR CHEST 2V PA LATERAL CLINICAL HISTORY: COUGH R05.9. TECHNIQUE: 2D digital imaging was performed. COMPARISON: CR,XR XR PORTABLE CHEST AP from 07/16/2022 FINDINGS: 2 views: Distal tip of the right-sided Port-A-Cath is in the upper right atrium. Mild cardiomegaly again noted. Mediastinum not widened. Less than optimal inspiratory effort. No obvious new infiltrates nor obvious pleural effusions. No pneumothorax. No fractures. IMPRESSION: No obvious acute pulmonary findings. DATA REPOSITORY: RADIATION DOSE DELIVERED:
== END ==
PROVIDERS: PCP Family Medicine; Visit Provider Family Medicine
DX: R05.9 Cough, unspecified (principal); J90 Pleural effusion, not elsewhere classified; K80.80 Other cholelithiasis without obstruction; R16.1 Splenomegaly, not elsewhere classified
CPT/HCPCS: 71046

== ENCOUNTER 2024-01-02 14:15 | Outpatient (RCR) | payer MEDICARE, SELFPAY ==
[2023-12-09 00:17] VITALS: BP 131/74; PULSE 59; RESP 17; TEMP 36.4
[2023-12-16] MEDS: Normal Saline Flush 10 ML SYR IVP (07:14)
[2023-12-16 07:22] LABS: Abs Immature Grans 0.01 10^3/uL (0.0-0.06); Absolute Basophil Count 0.03 10^3/uL (0.0-0.2); Absolute Eosinophil Count 0.32 10^3/uL (0.0-0.7); Absolute Lymphocyte Count 0.37 10^3/uL (1.2-3.4); Absolute Monocyte Count 0.34 10^3/uL (0.1-0.8); Basophils % 1.2 %; HCT 32.8 % (40.0-50.0); HGB 10.4 g/dL (13.5-17.5); Immature Grans % 0.4 %; MCH 31.3 pg (27.0-33.0); MCHC 31.7 % (32.0-36.0); MCV 99 fL (80-95); Monocytes % 13.8 %; Neutrophils % 56.6 %; RBC 3.32 10^6/uL (4.36-5.78); RDW 16.3 % (11.8-14.1); RDW-SD 59.2 fL; WBC 2.47 10^3/uL (4.4-10.8)
[2023-12-16 07:29] LABS: Estimated GFR 36.36 (mL/min/1.73m2)
[2023-12-16 07:54] LABS: Diff Comment PLT Morph Reviewed; Platelet Count 44 10^3/uL (130-400); RBC Morphology Normal
[2023-12-30] VITALS (8 sets, daily range): BP systolic 108–138; BP diastolic 63–83; PULSE 58–64; RESP 17; TEMP 36.6–36.7; O2SAT 99–100
[2023-12-30] MEDS: Normal Saline Flush 10 ML SYR IVP (07:18)
[2023-12-30] MEDS: IMMUNE GLOBULIN 40 GM/400 ML BTL IVPB ×3 (07:43→11:30)
[2023-12-30 07:50] LABS: Abs Immature Grans 0.01 10^3/uL (0.0-0.06); Absolute Basophil Count 0.06 10^3/uL (0.0-0.2); Absolute Eosinophil Count 0.47 10^3/uL (0.0-0.7); Absolute Lymphocyte Count 0.32 10^3/uL (1.2-3.4); Absolute Monocyte Count 0.35 10^3/uL (0.1-0.8); Absolute Neutrophil Count 2.41 10^3/uL (1.2-6.7); Basophils % 1.7 %; Immature Grans % 0.3 %; Lymphocytes % 8.8 %; MCH 31.5 pg (27.0-33.0); MCHC 31.4 % (32.0-36.0); MCV 100 fL (80-95); Monocytes % 9.7 %; Neutrophils % 66.5 %; RBC 3.49 10^6/uL (4.36-5.78); RDW 16.5 % (11.8-14.1); RDW-SD 60.2 fL; WBC 3.62 10^3/uL (4.4-10.8)
[2023-12-30 08:07] LABS: Iron 45 ug/dL (65-175); Total Iron Binding Capacity 299 ug/dL (250-450)
[2023-12-30 08:08] LABS: C-Reactive Protein 1.48 mg/dL (<or=0.5); CREATININE 1.9 mg/dL (0.70-1.30); Creatine Kinase 80 U/L (39-308); Estimated GFR 38.66 (mL/min/1.73m2)
[2023-12-30 08:20] LABS: Diff Comment Diff Reviewed; Platelet Count 49 10^3/uL (130-400); RBC Morphology Normal
[2023-12-30 10:36] LABS: Transferrin Sat 15 % (20-55)
[2023-12-31] VITALS (7 sets, daily range): BP systolic 110–130; BP diastolic 64–80; PULSE 61–65; RESP 17; TEMP 36.5–37; O2SAT 98–100
[2023-12-31] MEDS: IMMUNE GLOBULIN 40 GM/400 ML BTL IVPB ×3 (07:48→10:27)
[2023-12-31] MEDS: Normal Saline Flush 10 ML SYR IVP (07:49)
[2023-12-31] MEDS: IRON SUCROSE COMPLEX 300 MG in Normal Saline 250 ML 176.667 MG IVPB (11:27)
[2024-01-02 14:43] LABS: HCT 34.2 % (40.0-50.0); HGB 10.7 g/dL (13.5-17.5); MCH 31.5 pg (27.0-33.0); MCHC 31.3 % (32.0-36.0); MCV 101 fL (80-95); MPV 12.4 fL (8.0-11.0); RDW 16.7 % (11.8-14.1); RDW-SD 62.2 fL; WBC 4.69 10^3/uL (4.4-10.8)
[2024-01-02 14:57] LABS: Platelet Count 61 10^3/uL (130-400)
[2024-01-02 15:12] LABS: NT-proBNP 22899 pg/mL (<300)
[2024-01-02] MEDS: Normal Saline Flush 10 ML SYR IVP (15:33)
== END 2024-01-08 23:59 | disposition home or self-care (01) ==
LOC: INF 14:15
PROVIDERS: Nurse Practitioner Adult Health; PCP Family Medicine; Visit Provider Internal Medicine
DX: D64.9 Anemia, unspecified (principal); D61.818 Other pancytopenia; D50.9 Iron deficiency anemia, unspecified; D63.1 Anemia in chronic kidney disease; G72.49 Other inflammatory and immune myopathies, not elsewhere classified; Z79.52 Long term (current) use of systemic steroids
CPT/HCPCS: 36591; 82550; 85027; 96365; 96366; 96372; 96523; 82565; 83540; 83550; 83880; 85025; 86140; J0881; J1459; J1756

== ENCOUNTER 2024-01-02 18:28 | Inpatient (IN) | payer MEDICARE, SELFPAY ==
[2024-01-02] VITALS (32 sets, daily range): BP systolic 120–146; BP diastolic 40–73; PULSE 75–90; RESP 8–24; TEMP 37.1; O2SAT 94–99
--- NOTE | 2024-01-02 20:00 | RT.EKG_ITS ---
APPROVED REPORT Exam: Resting ECG Reason for Exam: sob Patient Location: E HR:85 bpm ECG Measurements Heart Rate 85 AXIS ID 183 P 65 QRSd 135 QRS -31 QT 399 T 167 QTc 476 Conclusion Sinus rhythm...normal P axis, V-rate 60- 99 Probable left atrial enlargement...P >50mS, <-0.10mV V1 Left bundle branch block...QRSd>120, broad/notched R I have reviewed and interpreted ECG and agree with software generated interpretation. No real change compared to prior except now with complete LBBB. Continued NS ST changes are unchanged.
[2024-01-02 20:34] LABS: Abs Immature Grans 0.03 10^3/uL (0.0-0.06); Absolute Basophil Count 0.03 10^3/uL (0.0-0.2); Absolute Eosinophil Count 0.01 10^3/uL (0.0-0.7); Absolute Lymphocyte Count 0.26 10^3/uL (1.2-3.4); Absolute Monocyte Count 0.72 10^3/uL (0.1-0.8); Absolute Neutrophil Count 4.68 10^3/uL (1.2-6.7); Basophils % 0.5 %; Eosinophils % 0.2 %; HCT 31.4 % (40.0-50.0); HGB 9.8 g/dL (13.5-17.5); Immature Grans % 0.5 %; Lymphocytes % 4.5 %; MCH 30.9 pg (27.0-33.0); MCHC 31.2 % (32.0-36.0); MCV 99 fL (80-95); MPV 11.2 fL (8.0-11.0); Monocytes % 12.6 %; Neutrophils % 81.7 %; RBC 3.17 10^6/uL (4.36-5.78); RDW 16.6 % (11.8-14.1); RDW-SD 60.6 fL; WBC 5.73 10^3/uL (4.4-10.8)
[2024-01-02 20:41] LABS: Lactate 1.7 mmol/L (0.9-1.7)
[2024-01-02 20:42] LABS: Bilirubin Negative (Negative); Blood Small (Negative); Clarity Clear (Clear); Glucose 500 mg/dL (Negative); Ketones Negative (Negative); Leukocyte Esterase Trace (Negative); Nitrite Negative (Negative); Urobilinogen 0.2 mg/dL (Up to 0.2)
[2024-01-02 20:50] LABS: Bacteria Negative HPF (Negative); C & S Indicated? No; Crystals Negative HPF (Negative); Epithelial Cells Rare HPF (Negative); Mucus Negative (Negative)
[2024-01-02] MEDS: Normal Saline-STERILE FIELD 0.9% 10 ML SYR (20:50)
[2024-01-02 20:55] LABS: Diff Comment PLT Morph Reviewed; Platelet Count 58 10^3/uL (130-400); RBC Morphology Normal
[2024-01-02 21:04] LABS: ALT 41 U/L (16-63); AST 55 U/L (15-37); Albumin 2.5 g/dL (3.4-5.0); Alkaline Phosphatase 179 U/L (46-116); Anion Gap 9.1 mmol/L (3-11); BUN 76 mg/dL (7-18); Bilirubin, Total 1.05 mg/dL (0.2-1.0); CO2 21.9 mmol/L (21.0-32.0); Calcium 8.3 mg/dL (8.5-10.1); Chloride 106 mmol/L (98-107); Estimated GFR 36.36 (mL/min/1.73m2); Glucose 129 mg/dL (74-106); NT-proBNP 26641 pg/mL (<300); Potassium 4.3 mmol/L (3.5-5.1); Sodium 137 mmol/L (136-145); Total Protein 9.3 g/dL (6.4-8.2)
[2024-01-02 21:06] LABS: Troponin I 198 ng/L (< or =60)
[2024-01-02] MEDS: Omnipaque 350 MG/ML 100 ML BTL IJ (21:32)
[2024-01-02] MEDS: Normal Saline - Diluent 50 ML VIAL IJ (21:33)
--- NOTE | 2024-01-02 21:50 | DI.CT_ITS ---
Exam(s) CT CHEST PE CTA EXAM: CT CHEST PE CTA CLINICAL HISTORY: shortness of breath, recent surgery ,hx of dvt. TECHNIQUE: Imaging Protocol: Axial CT angiography was performed with multi-slice acquisition and mu lti-planar and/or 3D reconstructions. CONTRAST MATERIAL: Intravenous: Omnipaque 350 contrast volume:100 mL COMPARISON: CT CT CHEST PE CTA from 06/20/[address] CHEST PE CTA from 07/16/2022 CT,NM,TMT NM MPI REST STRESS GRP from 08/28/2022 CR XR CHEST 2V PA LATERAL from 01/02/2024 FINDINGS: Tracheobronchial tree: Patent where visualized. No bronchiectasis. Pulmonary parenchyma: There are calcified granuloma present. No noncalcified pulmonary nodules are p resent. There is a moderate right pleural effusion and subjacent infiltrate in the right lower lobe. There is a small left pleural effusion with subjacent infiltrate. The infiltrates likely represent atelectasis. No architectural distortion. Pulmonary Arteries: No evidence of filling defect to suggest pulmonary emboli. Mediastinum and Tiffany: No dominant adenopathy or fluid collection. The esophagus is unremarkable. Visualized thyroid gland: The left lobe of the thyroid gland is mildly enlarged and descends into the superior mediastinum. No thyroid nodules are seen. Pleura: No pneumothorax is seen. Heart: The heart is mildly enlarged. Coronary artery calcifications are present. No pericardial eff usion. Aorta: Thoracic aorta non-dilated. No evidence of dissection. Atherosclerotic calcification is presen t. Upper abdomen: Gallstones. The spleen appears to be enlarged. Tubes, Catheters, and Lines: There is a right-sided power port. Soft tissues: Mild gynecomastia. Bones: Within normal limits for the patient's age. IMPRESSION: 1. No evidence of pulmonary embolism, thoracic aortic dissection or aneurysm. 2. Moderate right and small left pleural effusions. 3. Subjacent infiltrates in the lower lobes which likely reflect atelectasis. 4. Cholelithiasis and splenomegaly. RADIATION DOSE DELIVERED: Total DLP DATA REPOSITORY: All CT scans at this facility are submitted to the National Radiology Data Registry (NRDR) Dose Index Registry (DIR) with the [employer] (A[employer]). RADIATION OPTIMIZATION: All CT scans at this facility use at least one of these dose optimization te chniques: automated exposure control; mA and/or kV adjustment per patient size (includes targeted exa ms where dose is matched to clinical indication); or iterative reconstruction.
--- NOTE | 2024-01-02 22:33 | DI.VRAD_ITS ---
PROCEDURE INFORMATION: Exam: CTA Chest With Contrast Exam date and time: 01/02/2024 9:34 PM Age: 63 years old Clinical indication: Shortness of breath; Patient HX: Recent foot surgery 1 week ago. SOB TECHNIQUE: Imaging protocol: Computed tomographic angiography of the chest with contrast. Exam focused on the arteries. 3D rendering (Not supervised by radiologist): MIP and/or 3D reconstructed images were created by the technologist. Radiation optimization: All CT scans at this facility use at least one of these dose optimization techniques: automated exposure control; mA and/or kV adjustment per patient size (includes targeted exams where dose is matched to clinical indication); or iterative reconstruction. Contrast material: OMNIPAQUE; Contrast volume: 100 ml; Contrast route: INTRAVENOUS (IV); COMPARISON: CT CHEST PE CTA 07/16/2022 7:53 PM FINDINGS: Tubes, catheters and devices: There is a MediPort with tip in the SVC. Pulmonary arteries: Normal. No pulmonary emboli. Aorta: Unremarkable. No aortic aneurysm. No aortic dissection. Lungs: See Pleural spaces finding. Pleural spaces: Large right and small left pleural effusions with adjacent atelectasis. Heart: The heart demonstrates diffuse enlargement. Coronary artery and aortic valve calcification is seen. Lymph nodes: Unremarkable. No enlarged lymph nodes. Gallbladder and biliary ducts: Cholelithiasis. Spleen: Splenomegaly at 15.6 cm in length. Bones/joints: Unremarkable. No acute fracture. Soft tissues: Unremarkable. IMPRESSION: No evidence of pulmonary embolism. Large right and small left pleural effusions with adjacent atelectasis consistent with CHF. Dictated and Authenticated by: Joann Ruiz MD. Ordering:TESSIE Hughes MD
--- NOTE | 2024-01-02 22:51 | W.PM.HP.N ---
Date of service: 01/02/24 Time of Service: 22:51 Assessment and Plan Assessment and plan (1) Pleural effusion due to CHF (congestive heart failure): Start date: 01/02/24 Status: Acute Assessment and plan: This is a 63-year-old gentleman who has a history of cardiac disease, with hypertension when he was a teenager and [id number] diabetes mellitus CKD and anemia with onset when he was in his 30's, presently under good control with his hemoglobin A1c below 7. He has had recent surgery with partial amputation of the right first toe about 2 weeks prior to this admission and when a postoperative orthopedic boot to the wound healing well by follow-up with surgery and wound care. He presents with worsening cough and shortness of breath but no productive sputum and was found to have large right pleural effusion with smaller left pleural effusion with a history of CHF and reduced left ventricular ejection fraction at 30% or lower as well as mild to moderate . He is on daily Lasix and was hospitalized for IV Lasix diuresis with 20 mg of IV Lasix given in the ED and his daily dose of dose of Lasix will be doubled to 40 mg IV twice daily for diuresis. We should consider thoracentesis if his cough and dyspnea persist or worsens despite IV diuresis. He is not anticoagulated because of thrombocytopenia and DVT prophylaxis will only be with sequential teds. He will have his echocardiogram updated and troponins will be trended with slight elevation appear to be secondary to his acute decompensation. He has had worsening symptoms for the last 3 days at least. He is chronically ill but overall has been stable with slow progression of complications of diabetes and CKD with anemia. There are no signs of acute infection with his right lower extremity having chronic edema and erythema with patient and just stable. He has had no fever or rigors. He is a full code. (2) HFrEF (heart failure with reduced ejection fraction): Status: Chronic Assessment and plan: Update echocardiogram and trend labs with aggressive IV diuresis as tolerated. Patient will follow-up with cardiology as scheduled. (3) Elevated troponin level not due myocardial infarction: Start date: 01/02/24 Status: Acute Assessment and plan: Patient has elevated troponin but this appears to be chronic with his CKD and remote elevation in July 2022 with acute event. Trend troponins as we diurese. (4) Aortic stenosis: Status: Chronic Assessment and plan: This problem is presently stable and we need to make sure we do not markedly decrease afterload with diuresis. Follow-up echocardiogram. Qualifiers: Cardiac valve disease etiology: nonrheumatic Qualified Code(s): I35.0 - Nonrheumatic aortic (valve) stenosis (5) CKD (chronic kidney disease) stage 3, GFR 30-59 ml/min: Status: Chronic Assessment and plan: Chronic and stable with patient to be monitored closely with diuresis. Avoid IV fluids with exacerbation of CHF and pleural effusions.. Qualifiers: Chronic kidney disease stage 3 subtype: stage 3b (GFR 30-44) Qualified Code(s): N18.32 - Chronic kidney disease, stage 3b (6) Anemia due to stage 3 chronic kidney disease: Status: Chronic Assessment and plan: Stable and monitor while diuresed. Qualifiers: Chronic kidney disease stage 3 subtype: stage 3b (GFR 30-44) Qualified Code(s): N18.32 - Chronic kidney disease, stage 3b; D63.1 - Anemia in chronic kidney disease (7) Thrombocytopenia: Status: Chronic Assessment and plan: Trend labs and patient not candidate for DVT prophylaxis with Lovenox or heparin at this time. If his right leg edema worsens and discomfort is revealed DVT, patient may be a candidate for Eliquis. He is at high risk for DVT with his obesity, chronic illness and immobility with chronic edema of the right leg. History of Present Illness History of Present Illness Chief Complaint: Shortness of breath with weight gain last 3 days Narrative: This is a 63-year-old male patient who is seen by his PCP today and had lab with BNP showing remarkable elevation in his BNP from baseline of around 10,000 up to around 26,000 with repeat lab in the ED. He also had a chest x-ray as an outpatient but elevated right hemidiaphragm but CT in the ER did show large right pleural effusion with small left pleural effusion which was new. He is on chronic furosemide for heart failure with left ventricular extraction last year at 30%. He also has which is mild to moderate with a valve area of 1.9. Patient was given a moderate dose of IV Lasix in the ED trying to avoid decrease afterload with aortic stenosis though this is mild on last echocardiogram in 2022. The patient was scheduled to have an echocardiogram soon and this will be updated during his hospital stay. Patient has had recent partial amputation of his right large toe with chronic edema of his right leg has had no signs or symptoms of infection with wound care follow-up. His cough was nonproductive and shortness of breath has been progressive over the last 3 days prompting evaluation by the ED. With imaging revealing significant pleural effusion which appears to be new, the patient will be admitted for IV diuresis and Lasix. His troponins are slightly elevated and this appears to be chronic associate with chronic kidney disease and his clearance as well as recent strain. There is no signs or symptoms of cardiac ischemia patient will not be anticoagulated especially because of his thrombocytopenia. CTA was negative for PE and it is doubtful that his right leg swelling is associated with DVT. Consider venous Doppler if swelling worsens. For now avoid IV fluids and IV diuresis will be continued with trending labs. He is having no chest pain with his shortness of breath. He is not on oxygen and is oxygenating well on room air. His chronic problems appear to be fairly stable with abnormal liver function test, chronically elevated troponin by history and creatinine elevated with BUN more markedly elevated. He is a full code. Review of Systems Narrative: 13 point review system otherwise unrevealing or stable. 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 Aortic stenosis (Chronic) Heart failure (Acute) Non-ST elevation AL (NSTEMI) (Acute) Discharge planning issues (Acute) Encounter for deep vein thrombosis (DVT) prophylaxis (Acute) Acute bronchitis (Acute) Ulcer of foot (Acute) Thyroid nodule (Acute) Fever (Acute) HFrEF (heart failure with reduced ejection fraction) (Chronic) 08/30 EF: 23% /global wall hypokinesis/fixed apical defect nuclear stress test Thrombocytopenia (Chronic) Acute on chronic renal insufficiency (Acute) Lower extremity cellulitis (Acute) Renal insufficiency (Chronic) Impacted cerumen of both ears (Acute) HTN (hypertension) (Chronic) Cirrhosis of liver (Chronic) Subclavian vein thrombosis (Acute) Myopathy (Acute) Barretts esophagus (Acute) Hearing deficit (Acute) Epistaxis (Acute) Chronic anemia (Chronic) Edema (Acute) Heart murmur, systolic (Acute) CALDERON (dyspnea on exertion) (Acute) Diastolic dysfunction (Acute) Excess ear wax (Acute) Weakness of both legs (Acute) Nocturnal cough (Acute) Medication monitoring encounter (Acute) Skin cancer, basal cell (Acute) face Elevated troponin (Acute) Medical History Hyperlipidemia Other pancytopenia History of shingles Nonalcoholic steatohepatitis History of deep vein thrombosis Anemia Hypomagnesemia Diabetic ulcer of right foot Bacteremia Acute non-ST segment elevation myocardial infarction Sepsis Vasculitis Obesity Basal cell carcinoma, face Duodenitis Pancytopenia Shingles DVT (deep venous thrombosis) Pulmonary embolism Gout NSTEMI (non-ST elevated myocardial infarction) Chronic kidney disease Cardiomyopathy 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 Sister Diabetes PATERNAL UNCLE Personal history of malignant neoplasm STOMACH Social History Smoking/Tobacco Use Status: Never Smoking risk assessment performed?: Yes Alcohol Intake: never Drug use: Never Substance use type: does not use Housing: house Do you feel safe at home: Yes Do you feel safe in your relationship?: Yes Meds Allergies and Home Medications Allergies Allergy/AdvReac Type Severity Reaction Status Date / Time bacitracin (From Neosporin Allergy Mild Skin Rash Verified 01/02/24 18:36 ([id number])) neomycin (From Neosporin Allergy Mild Skin Rash Verified 01/02/24 18:36 ([id number])) polymyxin B (From Neosporin Allergy Mild Skin Rash Verified 01/02/24 18:36 ([id number])) methotrexate Allergy Skin Rash Verified 01/02/24 18:36 morphine Allergy Itching Verified 01/02/24 18:36 Apichbp-TCC-YhT Reductase Allergy NECROTIZING Verified 01/02/24 18:36 Inhibitor (Iillctd-Lnk-Zds MYOPATHY Reductase Inhibitor) Home Medications ?Medication ?Instructions ?Recorded ?Confirmed ?Type Gamaguard Ivig See Rx Instructions .Route .COMPLEX 09/18/12 01/02/24 History multivitamin (Daily Multi-Vitamin 1 tab PO DAILY 11/23/13 01/02/24 History tablet) allopurinol 100 mg tablet 400 mg PO DAILY 04/10/21 01/02/24 History aspirin 81 mg tablet,delayed 81 mg PO DAILY #100 tabs 04/12/21 01/02/24 Rx release magnesium oxide 400 mg (241.3 mg 400 mg PO BID #60 tabs 04/12/21 01/02/24 Rx magnesium) tablet nitroglycerin 0.4 mg sublingual 0.4 mg sublingual Q5-15M PRN #30 04/12/21 01/02/24 Rx tablet tabs darbepoetin matt in polysorbat 60 60 mcg IV Q2W PRN 04/20/21 01/02/24 History mcg/mL in polysorbate injection (Aranesp) ondansetron 4 mg disintegrating 4 mg PO BID PRN 04/24/21 01/02/24 History tablet (Zofran ODT) losartan 50 mg tablet 75 mg PO DAILY 04/11/22 01/02/24 History furosemide 40 mg tablet 40 mg PO DAILY 06/20/22 01/02/24 History sodium chloride-aloe vera nasal 1 applic topical QID PRN 07/16/22 01/02/24 History gel ([place] Saline nasal gel) IV infusion pump accessory 09/12/22 01/02/24 History blood-glucose meter 09/12/22 01/02/24 History colchicine 0.6 mg tablet 0.6 mg PO DIRECTED 09/12/22 01/02/24 History sodium chloride 0.9 % (flush) 10 ml IV QWEEK 09/12/22 01/02/24 History iron sucrose 200 mg iron/10 mL 300 mg IV .12 weeks PRN 01/15/23 01/02/24 History intravenous solution (Venofer) insulin glargine 100 unit/mL (3 18 unit subcut DAILY 01/16/23 01/02/24 History mL) subcutaneous pen (Lantus Solostar U-100 Insulin) empagliflozin 10 mg tablet 10 mg PO DAILY 07/18/23 01/02/24 History (Jardiance) insulin lispro-aabc 100 unit/mL 20 unit subcut QACLUNCH 11/07/23 01/02/24 History subcutaneous pen (Lyumjev KwikPen U-100 Insulin) carvedilol 12.5 mg tablet 12.5 mg PO BID #180 tabs 11/14/23 01/02/24 Rx empagliflozin 10 mg tablet 10 mg PO DAILY 11/14/23 01/02/24 History (Jardiance) evolocumab 140 mg/mL subcutaneous 140 mg subcut Q2W #6 SYRGS 11/18/23 01/02/24 Rx syringe (Repatha Syringe) Exam Narrative Exam Narrative: General: Patient appears older than stated age, alert and oriented x 3 and in no acute distress. Good eye contact but flattened affect. HEENT: Normocephalic with coarsened facial features, eyes with pupils equal and reactive to light symmetrically, extraocular movement intact and sclera anicteric. Oropharynx with dry mucosa and poor dentition. Neck: Supple without JVD. Back: Stooped posture without CVA tenderness. Lungs: Marked decreased aeration of the right hemithorax with dullness to percussion at the base, slight decreased aeration over left base with no focalizing rales or rhonchi. No expiratory wheeze. Heart: Regular rate and rhythm with 4/6 crescendo systolic murmur left sternal border, no gallops or rubs. Abdomen: Obese contour, soft nontender to palpation no palpable hepatosplenomegaly. No fluid wave. Genitalia/rectal: Exam deferred. Extremities: Left leg with slight nonpitting edema and loss of hair but no shiny atrophic skin or hyperpigmentation and no ulcers. Right leg with moderate nonpitting and 1+ pitting edema with chronic venous stasis changes over the anterior tibialis area with erythema, thickening with slight rough texture but no open ulcerations and hyperpigmentation sparsely. Loss of hair and shiny atrophic skin over right leg. Right foot is in orthopedic boot. Dressing over right large toe is dry with reported well-healing partial amputation of right first toe. Cap refill is fair. Skin: Pale, warm and dry with actinic changes over sun exposed areas. Rough texture. Skin changes over right leg as described. Patient is overall unkempt. Neuro: Cranial nerves II through XII gross intact, no focalizing motor deficits or tremor. Psych: flattened affect with normal mood. No abnormal thought processes. Remote and recent memory intact. 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 Technically limited study due to body habitus. Conclusion Left ventricle is mildly dilated. Wall thickness is normal. Ejection fraction is 30% with global hypokinesis Normal right ventricular size and systolic function Left atrium is moderately dilated. Right atrial size is normal Aortic valve is calcified and probably trileaflet. There is mild aortic stenosis. Peak gradient is 28, mean 18 mmHg. Calculated aortic valve area is 1.9 cm??. There is trace aortic regurgitation Mild mitral annular calcification. Trace mitral regurgitation Exam: CTA Chest With Contrast Exam date and time: 01/02/2024 9:34 PM Age: 63 years old Clinical indication: Shortness of breath; Patient HX: Recent foot surgery 1 week ago. SOB COMPARISON: CT CHEST PE CTA 07/16/2022 7:53 PM FINDINGS: Tubes, catheters and devices: There is a MediPort with tip in the SVC. Pulmonary arteries: Normal. No pulmonary emboli. Aorta: Unremarkable. No aortic aneurysm. No aortic dissection. Lungs: See Pleural spaces finding. Pleural spaces: Large right and small left pleural effusions with adjacent atelectasis. Heart: The heart demonstrates diffuse enlargement. Coronary artery and aortic valve calcification is seen. Lymph nodes: Unremarkable. No enlarged lymph nodes. Gallbladder and biliary ducts: Cholelithiasis. Spleen: Splenomegaly at 15.6 cm in length. Bones/joints: Unremarkable. No acute fracture. Soft tissues: Unremarkable. IMPRESSION: No evidence of pulmonary embolism. Large right and small left pleural effusions with adjacent atelectasis consistent with CHF. Labs 01/03/24 06:55 01/03/24 06:55 Labs: Laboratory Results - last 24 hr 01/02/24 01/02/24 20:25 20:32 WBC 5.73 RBC 3.17 L Hgb 9.8 L Hct 31.4 L MCV 99 H MCH 30.9 MCHC 31.2 L RDW 16.6 H Plt Count 58 L MPV 11.2 H Immature Gran % 0.5 Neutrophils % 81.7 Lymphocytes % 4.5 Monocytes % 12.6 Eosinophils % 0.2 Basophils % 0.5 Nucleated RBC % 0.0 Absolute Neutrophils 4.68 Absolute Lymphocytes 0.26 L Absolute Monocytes 0.72 Absolute Eosinophils 0.01 Absolute Basophils 0.03 RBC Morphology Normal VBG Lactate 1.7 Sodium 137 Potassium 4.3 Chloride 106 Carbon Dioxide 21.9 Anion Gap 9.1 BUN 76 H Creatinine 2.0 H Est GFR (CKD-EPI 2020) 36.36 Glucose 129 H Calcium 8.3 L Total Bilirubin 1.05 H AST 55 H ALT 41 Alkaline Phosphatase 179 H Troponin I 198 H* NT-Pro-B Natriuret Pep 49147 H Total Protein 9.3 H Albumin 2.5 L Urine Color Yellow Urine Clarity Clear Urine pH 5.0 Ur Specific [place] 1.010 Urine Protein 30 H Urine Ketones Negative Urine Blood Small H Urine Nitrite Negative Urine Bilirubin Negative Urine Urobilinogen 0.2 Ur Leukocyte Esterase Trace H Urine RBC 3-5 H Urine WBC 5-10 Ur Epithelial Cells Rare Urine Crystals Negative Urine Bacteria Negative Urine Mucus Negative Ur Culture Indicated? No Urine Glucose 500 H Last Vital Signs Temp 37.1 C 01/02/24 18:32 Pulse 78 01/02/24 20:46 Resp 19 01/02/24 20:50 BP 126/57 L 01/02/24 20:46 Pulse Ox 97 01/02/24 20:50 Time Spent Time spent with Patient: >75 minutes Time was spent: preparing to see the patient(eg.review tests), obtaining and/or reviewing separately otained hiistory, ordering medications,tests, procedures, referring, communicating with other health post acute care nurse practitioner, indepentently interpreting results, counseling the patient and care coordination
[2024-01-02] MEDS: Furosemide 40 MG/4 ML VIAL 20 MG IVP (22:54)
--- NOTE | 2024-01-02 23:06 | W.ED.GENAD ---
Discharge Plan Discharge Details Chief Complaint: RespSymp Primary Care Provider: Jazmine Baer V ED Provider: Ellen Tello Home Meds and New Rx's Prescriptions: No Action Aranesp (in polysorbate) 60 mcg/mL solution 60 mcg IV Q2W PRN Patient Comments: Through [facility] Venofer 200 mg iron/10 mL solution 300 mg IV .12 weeks PRN Patient Comments: Through [facility] Rx Instructions: administer over 30 mins Dameron Saline Gel 1 applic topical QID PRN Rx Instructions: while awake Jardiance 10 mg tablet 10 mg PO DAILY Jardiance 10 mg tablet 10 mg PO DAILY carvedilol 12.5 mg tablet 12.5 mg PO BID Qty: 180 3RF Rx Instructions: must administer with a meal/food insulin glargine [Lantus Solostar U-100 Insulin] 100 unit/mL (3 mL) insulin pen 18 unit subcut DAILY Patient Comments: 01/16/23 per PCP med record states Per [facility] 07/24/22 RH Lyumjev KwikPen U-100 Insulin 100 unit/mL insulin pen 20 unit subcut QACLUNCH GAMAGUARD IVIG See Rx Instructions .ROUTE .COMPLEX Rx Instructions: Patient seen at [facility] [place] [facility] [place] IVIG infusions 2x a month ondansetron [Zofran ODT] 4 mg tablet,disintegrating 4 mg PO BID PRN (DME) blood-glucose meter Kit See Rx Instructions .Route Rx Instructions: As directed colchicine 0.6 mg tablet 0.6 mg PO DIRECTED sodium chloride 0.9 % (flush) Syringe 10 ml IV QWEEK (DME) IV infusion pump accessory Infusion Set See Rx Instructions .Route Rx Instructions: As directed Repatha Syringe 140 mg/mL syringe 140 mg subcut Q2W Qty: 6 5RF multivitamin [Daily Multi-Vitamin] 1 EACH tablet 1 tab PO DAILY allopurinol 100 mg tablet 400 mg PO DAILY aspirin 81 mg Tablet,Delayed Release (Dr/Ec) 81 mg PO DAILY Qty: 100 0RF magnesium oxide 400 mg (241.3 mg magnesium) Tablet 400 mg PO BID Qty: 60 1RF nitroglycerin 0.4 mg tablet, sublingual 0.4 mg sublingual Q5-15M PRNQty: 30 0RF Rx Instructions: do not exceed 3 doses per episode losartan 50 mg tablet 75 mg PO DAILY furosemide 40 mg tablet 40 mg PO DAILY HPI General Date/Time Provider Initiated Documentation: 01/02/24 19:41. HPI Narrative: This 63-year-old male with history of aortic stenosis, CHF, non-ST elevation [place], and DVT, renal insufficiency, hypertension cirrhosis presents with report of dyspnea on exertion and baseline shortness of breath which started approximately 3 days ago and is significantly worse in the past day. 5 pound weight gain. Denies change in peripheral edema. 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 This was performed 1 week ago [place]. Patient states he saw his PCP today and was sent here secondary to hours worsening dyspnea. Related Data Home Medications ?Medication ?Instructions ?Recorded ?Confirmed Gamaguard Ivig See Rx Instructions .Route .COMPLEX 09/18/12 01/02/24 multivitamin (Daily Multi-Vitamin 1 tab PO DAILY 11/23/13 01/02/24 tablet) allopurinol 100 mg tablet 400 mg PO DAILY 04/10/21 01/02/24 aspirin 81 mg tablet,delayed 81 mg PO DAILY #100 tabs 04/12/21 01/02/24 release magnesium oxide 400 mg (241.3 mg 400 mg PO BID #60 tabs 04/12/21 01/02/24 magnesium) tablet nitroglycerin 0.4 mg sublingual 0.4 mg sublingual Q5-15M PRN #30 04/12/21 01/02/24 tablet tabs darbepoetin matt in polysorbat 60 60 mcg IV Q2W PRN 04/20/21 01/02/24 mcg/mL in polysorbate injection (Aranesp) ondansetron 4 mg disintegrating 4 mg PO BID PRN 04/24/21 01/02/24 tablet (Zofran ODT) losartan 50 mg tablet 75 mg PO DAILY 04/11/22 01/02/24 furosemide 40 mg tablet 40 mg PO DAILY 06/20/22 01/02/24 sodium chloride-aloe vera nasal 1 applic topical QID PRN 07/16/22 01/02/24 gel (Dameron Saline nasal gel) IV infusion pump accessory 09/12/22 01/02/24 blood-glucose meter 09/12/22 01/02/24 colchicine 0.6 mg tablet 0.6 mg PO DIRECTED 09/12/22 01/02/24 sodium chloride 0.9 % (flush) 10 ml IV QWEEK 09/12/22 01/02/24 iron sucrose 200 mg iron/10 mL 300 mg IV .12 weeks PRN 01/15/23 01/02/24 intravenous solution (Venofer) insulin glargine 100 unit/mL (3 18 unit subcut DAILY 01/16/23 01/02/24 mL) subcutaneous pen (Lantus Solostar U-100 Insulin) empagliflozin 10 mg tablet 10 mg PO DAILY 07/18/23 01/02/24 (Jardiance) insulin lispro-aabc 100 unit/mL 20 unit subcut QACLUNCH 11/07/23 01/02/24 subcutaneous pen (Lyumjev KwikPen U-100 Insulin) carvedilol 12.5 mg tablet 12.5 mg PO BID #180 tabs 11/14/23 01/02/24 empagliflozin 10 mg tablet 10 mg PO DAILY 11/14/23 01/02/24 (Jardiance) evolocumab 140 mg/mL subcutaneous 140 mg subcut Q2W #6 SYRGS 11/18/23 01/02/24 syringe (Repatha Syringe) Previous Rx's ?Medication ?Instructions ?Recorded aspirin 81 mg tablet,delayed 81 mg PO DAILY #100 tabs 04/12/21 release magnesium oxide 400 mg (241.3 mg 400 mg PO BID #60 tabs 04/12/21 magnesium) tablet nitroglycerin 0.4 mg sublingual 0.4 mg sublingual Q5-15M PRN #30 04/12/21 tablet tabs carvedilol 12.5 mg tablet 12.5 mg PO BID #180 tabs 11/14/23 evolocumab 140 mg/mL subcutaneous 140 mg subcut Q2W #6 SYRGS 11/18/23 syringe (Repatha Syringe) Allergies Allergy/AdvReac Type Severity Reaction Status Date / Time bacitracin (From Neosporin Allergy Mild Skin Rash Verified 01/02/24 18:36 ([id number])) neomycin (From Neosporin Allergy Mild Skin Rash Verified 01/02/24 18:36 ([id number])) polymyxin B (From Neosporin Allergy Mild Skin Rash Verified 01/02/24 18:36 ([id number])) methotrexate Allergy Skin Rash Verified 01/02/24 18:36 morphine Allergy Itching Verified 01/02/24 18:36 Lrmyhji-PFE-AnR Reductase Allergy NECROTIZING Verified 01/02/24 18:36 Inhibitor (Qbbsjhr-Pui-Crp MYOPATHY Reductase Inhibitor) General Stated Complaint: RespSymp AURA: 3 Exam Narrative Exam Narrative: Alert and oriented 63-year-old male, dyspneic with speech, pupils equal round reactive to light and accommodation, crackles to lungs, no significant respiratory distress, murmur noted, distal pulses intact all 4 extremities, venous stasis right lower extremity, 3+ edema to bilateral lower extremities, distal pulses intact posterior tibialis Course Vital Signs Vital signs: Vital Signs Temperature 37.1 C 01/02/24 18:32 Pulse 85 01/02/24 18:32 Respiratory Rate 15 01/02/24 18:32 Blood Pressure 144/70 H 01/02/24 18:32 Pulse Oximetry 97 01/02/24 18:32 Temperature 37.1 C 01/02/24 18:32 Temperature Source Tympanic 01/02/24 18:32 Pulse 78 01/02/24 20:46 Pulse 77 01/02/24 20:50 Respiratory Rate 19 01/02/24 20:50 Respiratory Effort Normal 01/02/24 20:30 Respiratory Depth Normal 01/02/24 20:30 Blood Pressure 126/57 L 01/02/24 20:46 Blood Pressure Mean 80 01/02/24 20:46 Blood Pressure Position Sitting 01/02/24 18:32 Pulse Oximetry 97 01/02/24 20:50 Oxygen Delivery Method Room Air 01/02/24 18:32 Oxygen Flow Rate 0 01/02/24 18:32 Lab/Test Results Lab/Test Results: 01/02/24 20:25 Blood Blood Culture - Pending 01/02/24 20:25 Blood Blood Culture - Pending Laboratory Tests Range/Units 01/02/24 01/02/24 20:25 20:32 WBC (4.4-10.8) 10^3/uL 5.73 RBC (4.36-5.78) 10^6/uL 3.17 L Hgb (13.5-17.5) g/dL 9.8 L Hct (40.0-50.0) % 31.4 L MCV (80-95) fL 99 H MCH (27.0-33.0) pg 30.9 MCHC (32.0-36.0) % 31.2 L RDW (11.8-14.1) % 16.6 H Plt Count (130-400) 10^3/uL 58 L MPV (8.0-11.0) fL 11.2 H Immature Gran % % 0.5 Neutrophils % % 81.7 Lymphocytes % % 4.5 Monocytes % % 12.6 Eosinophils % % 0.2 Basophils % % 0.5 Nucleated RBC % (0.0-0.3) % 0.0 Absolute Neutrophils (1.2-6.7) 10^3/uL 4.68 Absolute Lymphocytes (1.2-3.4) 10^3/uL 0.26 L Absolute Monocytes (0.1-0.8) 10^3/uL 0.72 Absolute Eosinophils (0.0-0.7) 10^3/uL 0.01 Absolute Basophils (0.0-0.2) 10^3/uL 0.03 RBC Morphology Normal VBG Lactate (0.9-1.7) mmol/L 1.7 Sodium (136-145) mmol/L 137 Potassium (3.5-5.1) mmol/L 4.3 Chloride (98-107) mmol/L 106 Carbon Dioxide (21.0-32.0) mmol/L 21.9 Anion Gap (3-11) mmol/L 9.1 BUN (7-18) mg/dL 76 H Creatinine (0.70-1.30) mg/dL 2.0 H Est GFR (CKD-EPI 2020) (mL/min/1.73m2) 36.36 Glucose (74-106) mg/dL 129 H Calcium (8.5-10.1) mg/dL 8.3 L Total Bilirubin (0.2-1.0) mg/dL 1.05 H AST (15-37) U/L 55 H ALT (16-63) U/L 41 Alkaline Phosphatase (46-116) U/L 179 H Troponin I (< or =60) ng/L 198 H* NT-Pro-B Natriuret Pep (<300) pg/mL 71036 H Total Protein (6.4-8.2) g/dL 9.3 H Albumin (3.4-5.0) g/dL 2.5 L Urine Color (Yellow) Yellow Urine Clarity (Clear) Clear Urine pH (5-8) 5.0 Ur Specific [place] (1.005-1.025) 1.010 Urine Protein (Neg-Trace) mg/dL 30 H Urine Ketones (Negative) mg/dL Negative Urine Blood (Negative) Small H Urine Nitrite (Negative) Negative Urine Bilirubin (Negative) Negative Urine Urobilinogen (Up to 0.2) mg/dL 0.2 Ur Leukocyte Esterase (Negative) Trace H Urine RBC (0-2) HPF 3-5 H Urine WBC (0-5) HPF 5-10 Ur Epithelial Cells (Negative) HPF Rare Urine Crystals (Negative) HPF Negative Urine Bacteria (Negative) HPF Negative Urine Mucus (Negative) Negative Ur Culture Indicated? No Urine Glucose (Negative) mg/dL 500 H Medical Decision Making 63-year-old male presenting with dyspnea on exertion, markedly elevated BNP increasing from 12,000-22,000 with troponin, 198, actually improved from patient's prior, he has chronically elevated troponin without any current chest pain. EKG with left bundle branch block, not new for patient when compared to prior, echocardiogram from September 2022 with ejection fraction of 30% with aortic stenosis, followed by cardiology. At this time, I will give small doses of Lasix secondary to history of aortic stenosis. Patient has not been unstable in fact blood pressure and vital signs have remained within normal limits however patient is high risk on CTA with a large right-sided effusion which was not visualized on chest x-ray earlier and a small left-sided effusion, per radiology interpretation and my review. Will need Lasix and reassessment tomorrow, possible thoracentesis. Cardiology consultation and repeat echocardiogram. Patient at this time is in no distress, he is resting comfortably in room. 20 mg of IV Lasix was administered, patient is on 40 at baseline however this history of aortic stenosis I will use caution. Case was discussed with admitting hospitalist who will admit patient to his service. Full CODE STATUS. 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 Aortic stenosis (Chronic) Heart failure (Acute) Non-ST elevation [place] (NSTEMI) (Acute) Discharge planning issues (Acute) Encounter for deep vein thrombosis (DVT) prophylaxis (Acute) Acute bronchitis (Acute) Ulcer of foot (Acute) Thyroid nodule (Acute) Fever (Acute) HFrEF (heart failure with reduced ejection fraction) (Chronic) 08/30 EF: 23% /global wall hypokinesis/fixed apical defect nuclear stress test Thrombocytopenia (Chronic) Acute on chronic renal insufficiency (Acute) Lower extremity cellulitis (Acute) Renal insufficiency (Chronic) Impacted cerumen of both ears (Acute) HTN (hypertension) (Chronic) Cirrhosis of liver (Chronic) Subclavian vein thrombosis (Acute) Myopathy (Acute) Barretts esophagus (Acute) Hearing deficit (Acute) Epistaxis (Acute) Chronic anemia (Chronic) Edema (Acute) Heart murmur, systolic (Acute) CALDERON (dyspnea on exertion) (Acute) Diastolic dysfunction (Acute) Excess ear wax (Acute) Weakness of both legs (Acute) Nocturnal cough (Acute) Medication monitoring encounter (Acute) Skin cancer, basal cell (Acute) face Elevated troponin (Acute) Medical History Hyperlipidemia Other pancytopenia History of shingles Nonalcoholic steatohepatitis History of deep vein thrombosis Anemia Hypomagnesemia Diabetic ulcer of right foot Bacteremia Acute non-ST segment elevation myocardial infarction Sepsis Vasculitis Obesity Basal cell carcinoma, face Duodenitis Pancytopenia Shingles DVT (deep venous thrombosis) Pulmonary embolism Gout NSTEMI (non-ST elevated myocardial infarction) Chronic kidney disease Cardiomyopathy 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 Sister Diabetes PATERNAL UNCLE Personal history of malignant neoplasm STOMACH Social History Smoking/Tobacco Use Status: Never Smoking risk assessment performed?: Yes Alcohol Intake: never Drug use: Never Substance use type: does not use Do you feel safe at home: Yes Do you feel safe in your relationship?: Yes
[2024-01-02 23:24] LABS: Troponin I 206 ng/L (< or =60)
[2024-01-02 23:54] LABS: Creatine Kinase 69 U/L (39-308); Uric Acid 2.9 mg/dL (3.5-7.2)
[2024-01-02 23:56] LABS: Hemoglobin A1C 6.2 % (<5.7)
[2024-01-03] VITALS (8 sets, daily range): BP systolic 109–141; BP diastolic 51–81; PULSE 67–85; RESP 14–18; TEMP 35.8–38; O2SAT 96–100
[2024-01-03] LABS: Magnesium 1.9 mg/dL (1.8-2.4)
--- NOTE | 2024-01-03 01:10 | W.PC.ACHO ---
Registration Status: Primary Language: Preferred Language: ED Information & Data Chief Complaint RespSymp 01/02/24 23:12 Triage Note PT reports increased 01/02/24 18:32 shortness of breath over the past 48 hours w/ persistent cough. Hx of autoimmune myopathy. Labs taken today by PCP reported higher than normal (for PT) WBC. Medical / Surgical History (Last Reviewed 01/02/24 @ 22:56 by Chris Espana) Hyperlipidemia Other pancytopenia History of shingles Nonalcoholic steatohepatitis History of deep vein thrombosis Anemia Hypomagnesemia Diabetic ulcer of right foot Bacteremia Acute non-ST segment elevation myocardial infarction Sepsis Vasculitis Obesity Basal cell carcinoma, face Duodenitis Pancytopenia Shingles DVT (deep venous thrombosis) Pulmonary embolism Gout NSTEMI (non-ST elevated myocardial infarction) Chronic kidney disease Cardiomyopathy MYOPATHY DUE TO DRUGS Hypercholesterolemia Diabetes mellitus Inclusion body myositis Kidney stone Essential hypertension (Last Reviewed 01/02/24 @ 22:56 by Chris Espana) History of colonoscopy POWER PORT MUSCLE BIOPSY LITHOTRIPSY Repair of umbilical hernia EGD - MAC (~2009) Colonoscopy - MAC (~2009) Most Recent Vital Signs Temperature 37.1 C 01/02/24 18:32 Temperature Source Tympanic 01/02/24 18:32 Pulse 75 01/02/24 23:16 Pulse 77 01/02/24 23:16 Respiratory Rate 20 01/02/24 23:16 Respiratory Effort Normal 01/02/24 20:30 Respiratory Depth Normal 01/02/24 20:30 Blood Pressure 120/60 01/02/24 23:16 Blood Pressure Mean 81 01/02/24 23:16 Blood Pressure Position Sitting 01/02/24 18:32 Pulse Oximetry 98 01/02/24 23:16 Oxygen Delivery Method Room Air 01/02/24 18:32 Oxygen Flow Rate 0 01/02/24 18:32 Allergies bacitracin (From Neosporin ([id number])) Allergy (Mild, Verified 01/02/24 18:36) Skin Rash neomycin (From Neosporin ([id number])) Allergy (Mild, Verified 01/02/24 18:36) Skin Rash polymyxin B (From Neosporin ([id number])) Allergy (Mild, Verified 01/02/24 18:36) Skin Rash methotrexate Allergy (Verified 01/02/24 18:36) Skin Rash morphine Allergy (Verified 01/02/24 18:36) Itching Dqbicrn-AGA-SlH Reductase Inhibitor (Zbuesfx-Qhk-Tlx Reductase Inhibitor) Allergy (Verified 01/02/24 18:36) NECROTIZING MYOPATHY Active Medications Generic Name Dose Route Start Last Admin Trade Name Joneq PRN Reason Stop Dose Admin Iohexol 100 ml 01/02/24 21:45 01/02/24 21:32 Omnipaque 350 Mg/Ml 100 Ml Btl IJ 02/01/24 23:59 100 ml DIRECTED MAGALI Administration Sodium Chloride 50 ml 01/02/24 21:45 01/02/24 21:33 Normal Saline - Diluent 50 Ml Vial IJ 50 ml .FOR DI USE MAGALI Administration IV IV Catheter Type [Proximal Power Port Port] Diet Orders Category Date Time Status Diabetes Consistent CHO/Heart Healthy [DIET] Nutrition 01/03/24 Breakfast Active Diagnostics 01/03/24 01/02/24 01/02/24 Range/Units 05:35 23:02 20:32 WBC Pending (4.4-10.8) 10^3/uL RBC Pending (4.36-5.78) 10^6/uL Hgb Pending (13.5-17.5) g/dL Hct Pending (40.0-50.0) % MCV Pending (80-95) fL MCH Pending (27.0-33.0) pg MCHC Pending (32.0-36.0) % RDW Pending (11.8-14.1) % Plt Count Pending (130-400) 10^3/uL MPV Pending (8.0-11.0) fL Immature Gran % % Neutrophils % % Lymphocytes % % Monocytes % % Eosinophils % % Basophils % % Nucleated RBC % (0.0-0.3) % Absolute Neutrophils (1.2-6.7) 10^3/uL Absolute Lymphocytes (1.2-3.4) 10^3/uL Absolute Monocytes (0.1-0.8) 10^3/uL Absolute Eosinophils (0.0-0.7) 10^3/uL Absolute Basophils (0.0-0.2) 10^3/uL RBC Morphology PT Pending INR Pending VBG Lactate (0.9-1.7) mmol/L Sodium Pending (136-145) mmol/L Potassium Pending (3.5-5.1) mmol/L Chloride Pending (98-107) mmol/L Carbon Dioxide Pending (21.0-32.0) mmol/L Anion Gap Pending (3-11) mmol/L BUN Pending (7-18) mg/dL Creatinine Pending (0.70-1.30) mg/dL Est GFR (CKD-EPI 2020) Pending (mL/min/1.73m2) Glucose Pending (74-106) mg/dL Hemoglobin A1c (<5.7) % Uric Acid (3.5-7.2) mg/dL Calcium Pending (8.5-10.1) mg/dL Magnesium Pending (1.8-2.4) mg/dL Total Bilirubin Pending (0.2-1.0) mg/dL AST Pending (15-37) U/L ALT Pending (16-63) U/L Alkaline Phosphatase Pending (46-116) U/L Creatine Kinase (39-308) U/L Troponin I Pending 206 H* (< or =60) ng/L NT-Pro-B Natriuret Pep (<300) pg/mL Total Protein Pending (6.4-8.2) g/dL Albumin Pending (3.4-5.0) g/dL TSH (0.36-3.74) uIU/mL Urine Color Yellow (Yellow) Urine Clarity Clear (Clear) Urine pH 5.0 (5-8) Ur Specific [place] 1.010 (1.005-1.025) Urine Protein 30 H (Neg-Trace) mg/dL Urine Ketones Negative (Negative) mg/dL Urine Blood Small H (Negative) Urine Nitrite Negative (Negative) Urine Bilirubin Negative (Negative) Urine Urobilinogen 0.2 (Up to 0.2) mg/dL Ur Leukocyte Esterase Trace H (Negative) Urine RBC 3-5 H (0-2) HPF Urine WBC 5-10 (0-5) HPF Ur Epithelial Cells Rare (Negative) HPF Urine Crystals Negative (Negative) HPF Urine Bacteria Negative (Negative) HPF Urine Mucus Negative (Negative) Ur Culture Indicated? No Urine Glucose 500 H (Negative) mg/dL 01/01/24 Range/Units 20:25 WBC 5.73 (4.4-10.8) 10^3/uL RBC 3.17 L (4.36-5.78) 10^6/uL Hgb 9.8 L (13.5-17.5) g/dL Hct 31.4 L (40.0-50.0) % MCV 99 H (80-95) fL MCH 30.9 (27.0-33.0) pg MCHC 31.2 L (32.0-36.0) % RDW 16.6 H (11.8-14.1) % Plt Count 58 L (130-400) 10^3/uL MPV 11.2 H (8.0-11.0) fL Immature Gran % 0.5 % Neutrophils % 81.7 % Lymphocytes % 4.5 % Monocytes % 12.6 % Eosinophils % 0.2 % Basophils % 0.5 % Nucleated RBC % 0.0 (0.0-0.3) % Absolute Neutrophils 4.68 (1.2-6.7) 10^3/uL Absolute Lymphocytes 0.26 L (1.2-3.4) 10^3/uL Absolute Monocytes 0.72 (0.1-0.8) 10^3/uL Absolute Eosinophils 0.01 (0.0-0.7) 10^3/uL Absolute Basophils 0.03 (0.0-0.2) 10^3/uL RBC Morphology Normal PT INR VBG Lactate 1.7 (0.9-1.7) mmol/L Sodium 137 (136-145) mmol/L Potassium 4.3 (3.5-5.1) mmol/L Chloride 106 (98-107) mmol/L Carbon Dioxide 21.9 (21.0-32.0) mmol/L Anion Gap 9.1 (3-11) mmol/L BUN 76 H (7-18) mg/dL Creatinine 2.0 H (0.70-1.30) mg/dL Est GFR (CKD-EPI 2020) 36.36 (mL/min/1.73m2) Glucose 129 H (74-106) mg/dL Hemoglobin A1c 6.2 H (<5.7) % Uric Acid 2.9 L (3.5-7.2) mg/dL Calcium 8.3 L (8.5-10.1) mg/dL Magnesium 1.9 (1.8-2.4) mg/dL Total Bilirubin 1.05 H (0.2-1.0) mg/dL AST 55 H (15-37) U/L ALT 41 (16-63) U/L Alkaline Phosphatase 179 H (46-116) U/L Creatine Kinase 69 (39-308) U/L Troponin I 198 H* (< or =60) ng/L NT-Pro-B Natriuret Pep 77672 H (<300) pg/mL Total Protein 9.3 H (6.4-8.2) g/dL Albumin 2.5 L (3.4-5.0) g/dL TSH 3.10 (0.36-3.74) uIU/mL Urine Color (Yellow) Urine Clarity (Clear) Urine pH (5-8) Ur Specific [place] (1.005-1.025) Urine Protein (Neg-Trace) mg/dL Urine Ketones (Negative) mg/dL Urine Blood (Negative) Urine Nitrite (Negative) Urine Bilirubin (Negative) Urine Urobilinogen (Up to 0.2) mg/dL Ur Leukocyte Esterase (Negative) Urine RBC (0-2) HPF Urine WBC (0-5) HPF Ur Epithelial Cells (Negative) HPF Urine Crystals (Negative) HPF Urine Bacteria (Negative) HPF Urine Mucus (Negative) Ur Culture Indicated? Urine Glucose (Negative) mg/dL 01/02/24 20:25 Blood Culture - Pending Blood 01/02/24 20:25 Blood Culture - Pending Blood Intake and Output - 24 Hour Total 01/02/24 18:28 thru 01/02/24 18:32 Weight 119.295 kg Falls Risk Assessment History of Falls Previous History 01/02/24 20:30 Contributing Factors Impairments 01/02/24 20:30 Ambulatory Aids Uses ambulatory device + 01/02/24 20:30 Tubes/Lines None 01/02/24 20:30 Gait Evaluation No gait disturbance 01/02/24 20:30 Cognition No cognitive impairment 01/02/24 20:30 Fall Total Score 48 01/02/24 20:30 Level of Risk Moderate Risk 01/02/24 20:30 Problems (Last Reviewed 01/02/24 @ 22:56 by Chris Espana) Elevated troponin level not due myocardial infarction (Acute) Anemia due to stage 3 chronic kidney disease (Chronic) CKD (chronic kidney disease) stage 3, GFR 30-59 ml/min (Chronic) Aortic stenosis (Chronic) HFrEF (heart failure with reduced ejection fraction) (Chronic) Thrombocytopenia (Chronic) v v v v v v v v v Sending and/or Receiving Nurses: Please use comment section below to note any information pertinent to the patient hand-off not included above. Information / Comments: Infusion patient that has port access. Patient has hx of cellulitis of right leg. Patient was tachycardic and presented with heart failure (CHF) chronic kidney disease stage 3, DM type 2, 129 blood sugar, A1C 6.2. negative covid test. given 20 Lasix in ED. no respiratory symptoms. 18 guage in left AC chronicly high troponins at 205 on last. present. CTA performed. Report received from: WES hartman
[2024-01-03 07:19] LABS: HCT 30.7 % (40.0-50.0); HGB 9.6 g/dL (13.5-17.5); MCH 31.4 pg (27.0-33.0); MCHC 31.3 % (32.0-36.0); MCV 100 fL (80-95); RBC 3.06 10^6/uL (4.36-5.78); RDW 16.7 % (11.8-14.1); RDW-SD 61.2 fL; WBC 4.17 10^3/uL (4.4-10.8)
[2024-01-03 07:27] LABS: INR 1.3 (0.9-1.1); Prothrombin Time 12.7 sec (9.1-11.1)
[2024-01-03 07:32] LABS: Albumin 2.3 g/dL (3.4-5.0); BUN 73 mg/dL (7-18); Calcium 8.4 mg/dL (8.5-10.1); Chloride 106 mmol/L (98-107); Magnesium 1.9 mg/dL (1.8-2.4); Sodium 138 mmol/L (136-145); Total Protein 8.7 g/dL (6.4-8.2)
[2024-01-03 07:37] LABS: ALT 38 U/L (16-63); AST 48 U/L (15-37); Alkaline Phosphatase 167 U/L (46-116); Anion Gap 8.4 mmol/L (3-11); Bilirubin, Total 0.96 mg/dL (0.2-1.0); CO2 23.6 mmol/L (21.0-32.0); CREATININE 1.9 mg/dL (0.70-1.30); Estimated GFR 38.66 (mL/min/1.73m2); Glucose 140 mg/dL (74-106); Potassium 4.3 mmol/L (3.5-5.1)
[2024-01-03 07:42] LABS: Troponin I 189 ng/L (< or =60)
[2024-01-03 07:51] LABS: Platelet Count 51 10^3/uL (130-400)
[2024-01-03] MEDS: Carvedilol 12.5 MG TAB PO ×2 (08:30→19:17)
[2024-01-03] MEDS: Magnesium Oxide 400 MG TAB PO ×2 (08:30→19:17)
[2024-01-03] MEDS: Multivitamin TAB 1 TAB PO (08:31)
[2024-01-03] MEDS: Aspirin E.C. 81 MG TABEC PO (08:31)
[2024-01-03] MEDS: Allopurinol 100 MG TAB 400 MG PO (08:32)
[2024-01-03] MEDS: Empaglifozin 10 MG TAB PO (08:32)
[2024-01-03] MEDS: Losartan 50 MG TAB 75 MG PO (08:33)
[2024-01-03] MEDS: Insulin Aspart 300 UNITS/3 ML PEN SC ×3 (08:37→16:58)
[2024-01-03] MEDS: Normal Saline Flush 10 ML SYR IVP ×2 (08:52→19:18)
[2024-01-03] MEDS: Furosemide 40 MG/4 ML VIAL IVP ×2 (08:52→15:31)
--- NOTE | 2024-01-03 10:30 | DI.US_ITS ---
APPROVED REPORT EXAM: Comprehensive 2D, Doppler, and color-flow Echocardiogram Patient Location: In-Patient Room/Bed: [address] [employer] Installer: Darryl Gongora RDCS (AE) Indications: CHF exacerbation Conclusion Dilated left ventricle with reduced systolic function. 25 to 30%. There is global hypokinesis Right ventricle is moderately enlarged Right atrium is mildly enlarged. Left atrium is moderately dilated Aortic valve is probably trileaflet and sclerotic. There is mild aortic stenosis. Peak gradient is 33, mean 19 mmHg. There is mild aortic regurgitation Estimated right ventricular systolic pressure is 36 mmHg Wall motion Left Ventricle Left ventricle is dilated. Left ventricular systolic function isdecreased. There is normal left ventr icular wall thickness. There is global hypokinesis of the left ventricle. There is no ventricular sep tristin defect visualized. LVEF is 25-30% Right Ventricle Right ventricle is moderately dilated. Right ventricular systolic function could not be assessed. Atria Left atrium is moderately dilated. Right atrium is mildly dilated. The interatrial septum is intact w ith no evidence for an atrial septal defect. Aortic Valve Aortic valve is calcified. Aortic valve is probably trileaflet. Mild aortic stenosis. Peak aortic aster ve gradient is 33.24 mmHg. Highest mean aortic valve gradient is 19.73 mmHg. Calculated LILIA by the co ntinuity equation is 0.8 cm2. Mild aortic regurgitation. Mitral Valve Mild mitral annular calcification. No evidence of mitral valve stenosis. Trace to mild mitral regurgi tation. Tricuspid Valve The tricuspid valve is normal in structure. There is no tricuspid valve stenosis. Mild tricuspid regu rgitation. The RVSP is 36.2 mmHg. Pulmonic Valve The pulmonary valve is normal in structure. There is no pulmonic valvular stenosis. Mild pulmonic reg urgitation. Great Vessels The aortic root is normal in size. The ascending aorta is normal in size. Aortic arch is not well vis ualized. The IVC collapses <50% with inspiration. The IVC is dilated. Pericardium There is no pericardial effusion. 2D Dimensions IVSD d PLAX 0.80 cm M: 0.6-1.2 Ao Root d 3.23 cm M: 3.1 - 3.7 LVPW d PLAX 0.84 cm M: 0.6 - 1.2 Ao Asc Diam d 3.30 cm M: 2.6 - 3.4 LVID d PLAX 7.42 cm M: 4.2 - 5.8 LVDs 6.68 cm M: 2.5 - 4.0 LV EF Teichholz 21.0 % FS 9.92 % LV EDV (Teich) 290.8 mL LV ESV (Teich) 229.8 mL Stroke Vol Index (Teich) 26.31 M-Mode TAPSE 1.85 cm (M/F) >1.7 Auto EF LV EDV A4C 228.8 mL LV EDV A2C 256.4 mL LV EDV BP 239.5 mL LV ESV A4C 171.7 mL LV ESV A2C 188.2 mL LV ESV BP 182.5 mL LVEF(%) A4C 25.0 % LVEF(%) A2C 26.6 % LVEF(%) BP 23.8 % LV SV A4C 57.1 ml LV SV A2C 68.2 ml LV SV BP 56.9 ml LV CO A4C 4.6 L/min LV CO A2C 5.4 L/min LV CO BP 5.0 L/min HR A4C 80.18 BPM HR A2C 79.65 BPM LV EDV Index (BP) LA Volume LA Length A4C 6.2 cm LA Length A2C 6.6 cm LA Area A4C s 28.22 cm2 LA Area A2C s 26.58 cm2 LA Vol A4C A-L 108.92 mL LA Vol A2C A-L 91.36 mL LA Vol Biplane A-L 102.6 mL LA Vol/BSA A4C A-L LA Vol/BSA A2C A-L LA Vol/BSA BP A-L 44.2 mL/m2 LA Vol A4C MOD 100.4 mL LA Vol A2C MOD 87.0 mL LA Vol BP MOD 94.8 mL RA Volume RA Area A4C 20.4 cm2 RA ESV A4C (A-L) 71.2mL RA Vol/BSA A4C A-L RA Length A4C 5.0 cm RA ESV A4C (MOD) 68.3mL LV Diastology MV E' medial 0.025 (>0.07 m/s) MV E Vmax 1.18 (0.4-1.3 m/s) MV E/E' MED 47.07 (<14) MV A Vmax 0.50 (0.4-1.3 m/s) MV E' lateral 0.094 (>0.1 m/s) E/A Ratio 2.4 MV E/E' LAT 12.57 (<14) MV E' Average 0.059 m/s MV E/E'(average) 19.85 Aortic Valve AoV Vmax 2.88 m/s LVOT Vmax 0.93 m/s AoV Peak Grad 33.2 mmHg LVOT Peak Grad 3.4 mmHg AoV Area (Vmax) 0.84 cm2 LVOT VTI 0.200 m AoV VTI 0.618 m LVOT Mean Grad 2.2 mmHg AoV Mean Volodymyr. 2.11 m/s LVOT SV 52.32 mL AoV Mean Grad 19.7 mmHg LVOT Diam s 1.80 cm AoV Area (VTI) 0.85 cm2 AV Regurg Peak Gr. 33.24 mmHg Velocity Ratio 0.32 Mitral Valve MV DT 144 (160-240 msec) MV Vmax TIPS 1.11 m/s MV Mean Grad 2.1 (<2mmHg) MV VTI 0.315 m Pulmonary Valve PV Vmax 1.18 (0.5-1.5 m/s) RVOT Vmax 0.53 m/s PV Peak Grad 5.6 mmHg RVOT Peak Gr. 1.1 mmHg PV Mean Volodymyr 0.85 m/s RVOT VTI 0.092 m PV Mean Grad 3.3 mmHg RVOT Mean Gr. 0.5 mmHg Tricuspid Valve RA Pressure 15.00 mmHg TR Vmax 2.31 m/s TR Peak Grad 21.2 mmHg RVSP (TR) 36.2 mmHg
--- NOTE | 2024-01-03 14:06 | PGE_ITS ---
Date of Service Date of service: 01/03/24 Time of Service: 14:07 Assessment and Plan Assessment and plan (1) Pleural effusion due to CHF (congestive heart failure): Status: Acute Assessment and plan: respiratory status stable, continue diuresis (2) HFrEF (heart failure with reduced ejection fraction): Status: Chronic Assessment and plan: Updated echocardiogram: Conclusion Dilated left ventricle with reduced systolic function. 25 to 30%. There is global hypokinesis Right ventricle is moderately enlarged Right atrium is mildly enlarged. Left atrium is moderately dilated Aortic valve is probably trileaflet and sclerotic. There is mild aortic steno sis. Peak gradient is 33, mean 19 mmHg. There is mild aortic regurgitation Estimated right ventricular systolic pressure is 36 mmHg continue IV diuresis, close monitoring of I&O, daily weights, and monitoring of kidney functions and electrolytes, continue goal directed therapy followed by DR Cruz, will refer for outpatient discharge follow up. (3) Elevated troponin level not due myocardial infarction: Status: Acute Assessment and plan: has remained flat and appears to be chronic in setting of CKD, heart failure and remote elevation in July 2022 with acute event. no further trending of troponin unless becomes symptomatic. (4) Aortic stenosis: Status: Chronic Assessment and plan: per echo Aortic valve is probably trileaflet and sclerotic. There is mild aortic stenosis. Peak gradient is 33, mean 19 mmHg. There is mild aortic regurgitation Qualifiers: Cardiac valve disease etiology: nonrheumatic Qualified Code(s): I35.0 - Nonrheumatic aortic (valve) stenosis (5) CKD (chronic kidney disease) stage 3, GFR 30-59 ml/min: Status: Chronic Assessment and plan: Chronic and stable with patient to be monitored closely with diuresis. Avoid IV fluids with exacerbation of CHF and pleural effusions.. Qualifiers: Chronic kidney disease stage 3 subtype: stage 3b (GFR 30-44) Qualified Code(s): N18.32 - Chronic kidney disease, stage 3b (6) Anemia due to stage 3 chronic kidney disease: Status: Chronic Assessment and plan: Stable and monitor while diuresed. Qualifiers: Chronic kidney disease stage 3 subtype: stage 3b (GFR 30-44) Qualified Code(s): N18.32 - Chronic kidney disease, stage 3b; D63.1 - Anemia in chronic kidney disease (7) Thrombocytopenia: Status: Chronic Assessment and plan: Trend labs and patient not candidate for DVT prophylaxis with Lovenox or heparin at this time. If his right leg edema worsens and discomfort is revealed DVT, patient may be a candidate for Eliquis. He is at high risk for DVT with his obesity, chronic illness and immobility with chronic edema of the right leg. discussed with DR Costa Subjective Subjective Patient reports: no new complaints, feels better, tolerating liquids well, tolerating a regular diet and afebrile; denies fever Interval history since last seen: cough Exam Narrative Exam Narrative: Chronically ill-appearing male of stated age no acute distress head is atraumatic eyes noninjected oral mucosa moist neck supple no JVD cardiovascular regular rate and rhythm systolic murmur respirations even and unlabored Rales in the bases no wheezing abdomen round nontender bilateral lower extremities positive for edema left lower extremity dressing clean dry and intact Objective Last Vital Signs Temp 35.8 C L 01/03/24 11:19 Pulse 84 01/03/24 11:19 Resp 16 01/03/24 11:19 BP 129/67 01/03/24 11:19 Pulse Ox 99 01/03/24 11:19 Laboratory Results - last 24 hr 01/02/24 01/02/24 01/02/24 20:25 20:32 23:02 WBC 5.73 RBC 3.17 L Hgb 9.8 L Hct 31.4 L MCV 99 H MCH 30.9 MCHC 31.2 L RDW 16.6 H Plt Count 58 L MPV 11.2 H Immature Gran % 0.5 Neutrophils % 81.7 Lymphocytes % 4.5 Monocytes % 12.6 Eosinophils % 0.2 Basophils % 0.5 Nucleated RBC % 0.0 Absolute Neutrophils 4.68 Absolute Lymphocytes 0.26 L Absolute Monocytes 0.72 Absolute Eosinophils 0.01 Absolute Basophils 0.03 RBC Morphology Normal PT INR VBG Lactate 1.7 Sodium 137 Potassium 4.3 Chloride 106 Carbon Dioxide 21.9 Anion Gap 9.1 BUN 76 H Creatinine 2.0 H Est GFR (CKD-EPI 2020) 36.36 Glucose 129 H Hemoglobin A1c 6.2 H Uric Acid 2.9 L Calcium 8.3 L Magnesium 1.9 Total Bilirubin 1.05 H AST 55 H ALT 41 Alkaline Phosphatase 179 H Creatine Kinase 69 Troponin I 198 H* 206 H* NT-Pro-B Natriuret Pep 57160 H Total Protein 9.3 H Albumin 2.5 L TSH 3.10 Urine Color Yellow Urine Clarity Clear Urine pH 5.0 Ur Specific [place] 1.010 Urine Protein 30 H Urine Ketones Negative Urine Blood Small H Urine Nitrite Negative Urine Bilirubin Negative Urine Urobilinogen 0.2 Ur Leukocyte Esterase Trace H Urine RBC 3-5 H Urine WBC 5-10 Ur Epithelial Cells Rare Urine Crystals Negative Urine Bacteria Negative Urine Mucus Negative Ur Culture Indicated? No Urine Glucose 500 H 01/03/24 06:55 WBC 4.17 L RBC 3.06 L Hgb 9.6 L Hct 30.7 L MCV 100 H MCH 31.4 MCHC 31.3 L RDW 16.7 H Plt Count 51 L MPV 12.0 H Immature Gran % Neutrophils % Lymphocytes % Monocytes % Eosinophils % Basophils % Nucleated RBC % Absolute Neutrophils Absolute Lymphocytes Absolute Monocytes Absolute Eosinophils Absolute Basophils RBC Morphology PT 12.7 H INR 1.3 H VBG Lactate Sodium 138 Potassium 4.3 Chloride 106 Carbon Dioxide 23.6 Anion Gap 8.4 BUN 73 H Creatinine 1.9 H Est GFR (CKD-EPI 2020) 38.66 Glucose 140 H Hemoglobin A1c Uric Acid Calcium 8.4 L Magnesium 1.9 Total Bilirubin 0.96 AST 48 H ALT 38 Alkaline Phosphatase 167 H Creatine Kinase Troponin I 189 H* NT-Pro-B Natriuret Pep Total Protein 8.7 H Albumin 2.3 L TSH Urine Color Urine Clarity Urine pH Ur Specific [place] Urine Protein Urine Ketones Urine Blood Urine Nitrite Urine Bilirubin Urine Urobilinogen Ur Leukocyte Esterase Urine RBC Urine WBC Ur Epithelial Cells Urine Crystals Urine Bacteria Urine Mucus Ur Culture Indicated? Urine Glucose Time Spent with Patient Time Spent with Patient: 35-49 minutes Time was spent: preparing to see the patient(eg.review tests), obtaining and/or reviewing separately otained hiistory, ordering medications,tests, procedures, indepentently interpreting results and counseling the patient
[2024-01-03] MEDS: Benzonatate 100 MG CAP PO ×2 (15:31→19:17)
[2024-01-03] MEDS: Acetaminophen 325 MG TAB PO ×2 (15:31→19:17)
--- NOTE | 2024-01-03 16:34 | INITIAL_ITS ---
Date of service: 01/03/24 Time of Service: 16:34 Care Management Initial Assmt Initial Assessment Reason for Hospitalization: CHF with pleural effusions Functional Status/Living Situation Patient Presentation: Bucky was sitting up in a chair and was visiting with his Bethanie and son Farrukh when CM met with him. He was pleasant in manner and engaged well with CM. Bucky stated that he is feeling better than when he was first admitted with CHF. He is receiving IV Lasix to aide with diuresis, however his urine is not being measure consistently (he voids in bathroom) so exact output unknown.Per chart review, he has lost 1.4 Kg since yesterday when he was admitted. 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 He is independent at baseline with ADLs and IADLs. Town of Residence: [place], [place] but address in [place] Resides with: Spouse (Bethanie) Significant Other/Family: [employer]: and 4 sons, all of whom live in [place] Employment Status: Disabled (disabled since 2010) Instrumental Activities of Daily Living (ADLs): Independent Medications Medication Management: No Issues/Barriers identified Physical Functioning/Mobility Assistive Device: uses cane regularly, also has a walker and other assistive equipment which he uses as needed. Advance Directives Advance Directives: Do you have an Advance Directive: N 10/01/22 09:55 AD On File at [facility]: N 10/01/22 09:55 Date Asked 01/02/24 01/02/24 18:30 AD Date Reviewed COLST On File at [facility] No 10/01/22 09:55 COLST Date Scanned Comment: given a copy at his request Code Status Resuscitation Status Full Code Insurance Coverage/Financial Issues Insurance: medicare Financial Assist 100 Care Team Visit Care Team Role Provider Type Jazmine Baer MD Primary Care Provider [facility] STAFF PHYSICIAN LUDA Potter Emergency Provider [employer] Chris Espana Admit Provider NON-[facility] STAFF PHYSICIAN Attending Provider Discharge Potential Discharge Needs: PCP F/U Appt Anticipated Barriers to Discharge: None Identified Patient/Family Education Needs: Review discharge instructions, discuss Ask Me Three Transportation: Private vehicle Plan: Anticipate Bucky will be discharged home with no new services when medically cleared. He will follow up with his PCP and plan of care and transport with family. CM will follow and continue to support discharge needs. 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 Aortic stenosis (Chronic) Heart failure (Acute) Non-ST elevation [place] (NSTEMI) (Acute) Discharge planning issues (Acute) Encounter for deep vein thrombosis (DVT) prophylaxis (Acute) Acute bronchitis (Acute) Ulcer of foot (Acute) Thyroid nodule (Acute) Fever (Acute) HFrEF (heart failure with reduced ejection fraction) (Chronic) 08/30 EF: 23% /global wall hypokinesis/fixed apical defect nuclear stress test Thrombocytopenia (Chronic) Acute on chronic renal insufficiency (Acute) Lower extremity cellulitis (Acute) Renal insufficiency (Chronic) Impacted cerumen of both ears (Acute) HTN (hypertension) (Chronic) Cirrhosis of liver (Chronic) Subclavian vein thrombosis (Acute) Myopathy (Acute) Barretts esophagus (Acute) Hearing deficit (Acute) Epistaxis (Acute) Chronic anemia (Chronic) Edema (Acute) Heart murmur, systolic (Acute) CALDERON (dyspnea on exertion) (Acute) Diastolic dysfunction (Acute) Excess ear wax (Acute) Weakness of both legs (Acute) Nocturnal cough (Acute) Medication monitoring encounter (Acute) Skin cancer, basal cell (Acute) face Elevated troponin (Acute) Medical History Hyperlipidemia Other pancytopenia History of shingles Nonalcoholic steatohepatitis History of deep vein thrombosis Anemia Hypomagnesemia Diabetic ulcer of right foot Bacteremia Acute non-ST segment elevation myocardial infarction Sepsis Vasculitis Obesity Basal cell carcinoma, face Duodenitis Pancytopenia Shingles DVT (deep venous thrombosis) Pulmonary embolism Gout NSTEMI (non-ST elevated myocardial infarction) Chronic kidney disease Cardiomyopathy 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 Sister Diabetes PATERNAL UNCLE Personal history of malignant neoplasm STOMACH Social History Smoking/Tobacco Use Status: Never Smoking risk assessment performed?: Yes Alcohol Intake: never Drug use: Never Substance use type: does not use Housing: house Do you feel safe at home: Yes Do you feel safe in your relationship?: Yes SDOH(Care Management) Screening Will the Patient Participate in the Screening?: Yes Do you worry about having a steady place to live?: no In the past 12 months, have you had to go without electric, gas, oil or water in your home?: no Have you or anyone in your house had to go without enough food to eat?: no Has lack of transportation kept you from medical appointments or from doing things needed for daily living?: no Has anyone in your support network made you feel unsafe for any reason?: no
[2024-01-03] MEDS: CEFEPIME 1 GM in Normal Saline 50 ML IVPB (22:31)
[2024-01-03] MEDS: VANCOMYCIN 2,000 MG in Normal Saline 500 ML 250 MG IVPB (23:45)
[2024-01-04] MEDS: Acetaminophen 325 MG TAB PO ×3 (01:05→16:18)
[2024-01-04 03:16] VITALS: BP 112/59; PULSE 68; RESP 18; TEMP 37; O2SAT 97
[2024-01-04] MEDS: traMADol 50 MG TAB PO (03:57)
[2024-01-04] MEDS: CEFEPIME 1 GM in Normal Saline 50 ML IVPB (05:29)
[2024-01-04] MEDS: Normal Saline Flush 10 ML SYR IVP ×4 (05:30→21:36)
[2024-01-04 06:56] LABS: Vancomycin, Random 23.5 ug/mL
[2024-01-04 08:03] VITALS: BP 139/81; PULSE 79; RESP 17; TEMP 36.6; O2SAT 98
[2024-01-04] MEDS: Aspirin E.C. 81 MG TABEC PO (08:51)
[2024-01-04] MEDS: Benzonatate 100 MG CAP PO ×3 (08:51→19:53)
[2024-01-04] MEDS: Losartan 50 MG TAB 75 MG PO (08:51)
[2024-01-04] MEDS: Allopurinol 100 MG TAB 400 MG PO (08:52)
[2024-01-04] MEDS: Empaglifozin 10 MG TAB PO (08:52)
[2024-01-04] MEDS: Magnesium Oxide 400 MG TAB PO ×2 (08:52→19:53)
[2024-01-04] MEDS: Carvedilol 12.5 MG TAB PO ×2 (08:52→19:53)
[2024-01-04] MEDS: Multivitamin TAB 1 TAB PO (08:52)
[2024-01-04] MEDS: Insulin Aspart 300 UNITS/3 ML PEN SC ×3 (08:53→16:40)
[2024-01-04] MEDS: Furosemide 40 MG/4 ML VIAL IVP ×2 (08:53→16:18)
[2024-01-04 11:20] VITALS: BP 128/72; PULSE 74; RESP 18; TEMP 37.5; O2SAT 98
[2024-01-04] MEDS: Lidocaine 5% Patch 1 PATCH TP (11:53)
--- NOTE | 2024-01-04 13:09 | W.PM.PROGNOT ---
Date of Service Date of service: 01/04/24 Time of Service: 13:09 Assessment and Plan Assessment and plan (1) Bacteremia: Status: Acute Assessment and plan: blood cultures growing gram positive cocci. history of MSSA bacteremia. No evidence of valvular vegetation on trans thoracic echo completed on Saturday. Continue vancomycin while awaiting culture reports repeat cultures pending (2) Pleural effusion due to CHF (congestive heart failure): Status: Acute Assessment and plan: respiratory status stable, responding well to diuresis continue IV diuresis (3) HFrEF (heart failure with reduced ejection fraction): Status: Chronic Assessment and plan: Updated echocardiogram: Conclusion Dilated left ventricle with reduced systolic function. 25 to 30%. There is global hypokinesis Right ventricle is moderately enlarged Right atrium is mildly enlarged. Left atrium is moderately dilated Aortic valve is probably trileaflet and sclerotic. There is mild aortic stenosis. Peak gradient is 33, mean 19 mmHg. There is mild aortic regurgitation Estimated right ventricular systolic pressure is 36 mmHg continue IV diuresis, close monitoring of I&O, daily weights, and monitoring of kidney functions and electrolytes, continue goal directed therapy followed by DR Cruz, will refer for outpatient discharge follow up. (4) Elevated troponin level not due myocardial infarction: Status: Acute Assessment and plan: has remained flat and appears to be chronic in setting of CKD, heart failure and remote elevation in July 2022 with acute event. no further trending of troponin unless becomes symptomatic. (5) Aortic stenosis: Status: Chronic Assessment and plan: per echo Aortic valve is probably trileaflet and sclerotic. There is mild aortic stenosis. Peak gradient is 33, mean 19 mmHg. There is mild aortic regurgitation Qualifiers: Cardiac valve disease etiology: nonrheumatic Qualified Code(s): I35.0 - Nonrheumatic aortic (valve) stenosis (6) CKD (chronic kidney disease) stage 3, GFR 30-59 ml/min: Status: Chronic Assessment and plan: Chronic and stable with patient to be monitored closely with diuresis. Avoid IV fluids with exacerbation of CHF and pleural effusions.. Qualifiers: Chronic kidney disease stage 3 subtype: stage 3b (GFR 30-44) Qualified Code(s): N18.32 - Chronic kidney disease, stage 3b (7) Anemia due to stage 3 chronic kidney disease: Status: Chronic Assessment and plan: Stable and monitor while diuresed. Qualifiers: Chronic kidney disease stage 3 subtype: stage 3b (GFR 30-44) Qualified Code(s): N18.32 - Chronic kidney disease, stage 3b; D63.1 - Anemia in chronic kidney disease (8) Thrombocytopenia: Status: Chronic Assessment and plan: Trend labs and patient not candidate for DVT prophylaxis with Lovenox or heparin at this time. If his right leg edema worsens and discomfort is revealed DVT, patient may be a candidate for Eliquis. He is at high risk for DVT with his obesity, chronic illness and immobility with chronic edema of the right leg. discussed with DR Costa Subjective Subjective Interval history since last seen: new left lower back pain, sudden onset last night while sitting in chair. does not radiate, no similar history, no fever, no rash, pain with palpation, took tramadol overnight with some relief, has heating pad on it now. Objective Last Vital Signs Temp 37.5 C 01/04/24 11:20 Pulse 74 01/04/24 11:20 Resp 18 01/04/24 11:20 BP 128/72 01/04/24 11:20 Pulse Ox 98 01/04/24 11:20 Laboratory Results - last 24 hr 01/04/24 01/04/24 06:20 22:00 Creatinine Cancelled Est GFR (CKD-EPI 2020) Cancelled Vancomycin Trough Cancelled Random Vancomycin 23.5 Time Spent with Patient Time Spent with Patient: 35-49 minutes Time was spent: preparing to see the patient(eg.review tests), obtaining and/or reviewing separately otained hiistory, ordering medications,tests, procedures, indepentently interpreting results and counseling the patient
[2024-01-04 15:40] VITALS: BP 126/68; PULSE 78; RESP 18; TEMP 37.5; O2SAT 99
[2024-01-04] MEDS: Methocarbamol 500 MG TAB PO ×2 (17:23→21:35)
[2024-01-04 19:55] VITALS: BP 103/58; PULSE 68; RESP 22; TEMP 37.4; O2SAT 99
[2024-01-04] MEDS: Lidocaine Patch Removal 1 EACH TP (21:37)
[2024-01-04 22:36] LABS: CREATININE 2.4 mg/dL (0.70-1.30); Estimated GFR 29.21 (mL/min/1.73m2); Vancomycin, Trough 16.2 ug/mL (10.0-20.0)
[2024-01-05] VITALS (7 sets, daily range): BP systolic 104–116; BP diastolic 58–70; PULSE 62–70; RESP 16–22; TEMP 36.4–37.4; O2SAT 96–100
--- NOTE | 2024-01-05 | DI.RAD_ITS ---
Exam(s) XR KNEE LT 3V AP,LAT,YI EXAM: XR KNEE LT 3V AP,LAT,YI CLINICAL HISTORY: non traumatic knee pain, bacteremia, ? effusion. TECHNIQUE: 2D digital imaging was performed of the left knee. Three images were obtained. AP, late ral and PA tunnel views were obtained. COMPARISON: CR RIGHT KNEE 3 VIEWS from 09/11/2013 FINDINGS: BONES: No acute fracture is present. No bony destructive lesion is seen. There is an enthesophyte at the superior patella. JOINTS: There is mild narrowing of the medial femoral tibial joint. Small osteophytes are seen at th e posterior patella. No joint effusion is seen. No loose body. SOFT TISSUE: Vascular calcifications are present. IMPRESSION: 1. Mild degenerative changes are seen in the knee. 2. No joint effusion. DATA REPOSITORY: RADIATION DOSE DELIVERED:
[2024-01-05] MEDS: VANCOMYCIN/WATER (PEG) 1 GM/200 ML BAG IVPB ×2 (00:11→23:19)
[2024-01-05] MEDS: Normal Saline Flush 10 ML SYR IVP ×4 (01:34→20:11)
[2024-01-05] MEDS: Methocarbamol 500 MG TAB PO ×5 (01:34→20:11)
[2024-01-05] MEDS: Acetaminophen 325 MG TAB PO ×3 (06:23→20:11)
[2024-01-05 06:41] LABS: Abs Immature Grans 0.01 10^3/uL (0.0-0.06); Absolute Basophil Count 0.03 10^3/uL (0.0-0.2); Absolute Eosinophil Count 0.14 10^3/uL (0.0-0.7); Absolute Lymphocyte Count 0.26 10^3/uL (1.2-3.4); Absolute Monocyte Count 0.57 10^3/uL (0.1-0.8); Absolute Neutrophil Count 1.63 10^3/uL (1.2-6.7); Basophils % 1.1 %; Eosinophils % 5.3 %; HCT 27.3 % (40.0-50.0); HGB 8.8 g/dL (13.5-17.5); Immature Grans % 0.4 %; Lymphocytes % 9.8 %; MCHC 32.2 % (32.0-36.0); MCV 99 fL (80-95); MPV 11.7 fL (8.0-11.0); Monocytes % 21.6 %; Neutrophils % 61.8 %; RBC 2.75 10^6/uL (4.36-5.78); RDW 17.1 % (11.8-14.1); RDW-SD 61.6 fL; WBC 2.64 10^3/uL (4.4-10.8)
[2024-01-05 06:55] LABS: Diff Comment RBC Morph Reviewed; Hypochromasia 1+; Platelet Count 51 10^3/uL (130-400)
[2024-01-05 06:59] LABS: Anion Gap 9.2 mmol/L (3-11); CO2 22.8 mmol/L (21.0-32.0); CREATININE 2.4 mg/dL (0.70-1.30); Calcium 8.4 mg/dL (8.5-10.1); Chloride 102 mmol/L (98-107); Estimated GFR 29.21 (mL/min/1.73m2); Glucose 141 mg/dL (74-106); Potassium 4.2 mmol/L (3.5-5.1); Sodium 134 mmol/L (136-145)
[2024-01-05 07:01] LABS: BUN 83 mg/dL (7-18)
[2024-01-05] MEDS: Furosemide 40 MG/4 ML VIAL IVP (08:33)
[2024-01-05] MEDS: Allopurinol 100 MG TAB 400 MG PO (08:34)
[2024-01-05] MEDS: Multivitamin TAB 1 TAB PO (08:34)
[2024-01-05] MEDS: Aspirin E.C. 81 MG TABEC PO (08:35)
[2024-01-05] MEDS: Losartan 50 MG TAB 75 MG PO (08:35)
[2024-01-05] MEDS: Benzonatate 100 MG CAP PO ×3 (08:35→20:11)
[2024-01-05] MEDS: Carvedilol 12.5 MG TAB PO ×2 (08:36→20:11)
[2024-01-05] MEDS: Magnesium Oxide 400 MG TAB PO ×2 (08:36→20:11)
[2024-01-05] MEDS: Empaglifozin 10 MG TAB PO (08:36)
[2024-01-05] MEDS: Insulin Aspart 300 UNITS/3 ML PEN SC ×3 (08:37→16:59)
[2024-01-05] MEDS: Lidocaine 5% Patch 1 PATCH TP (10:20)
--- NOTE | 2024-01-05 10:37 | W.PM.PROGNOT ---
Date of Service Date of service: 01/05/24 Time of Service: 10:38 Assessment and Plan Assessment and plan (1) Bacteremia: Status: Acute Assessment and plan: blood cultures growing MRSA No evidence of valvular vegetation on trans thoracic echo completed on Saturday. Continue vancomycin while awaiting sensitivities repeat cultures pending surgical consult for mediport removal, will need mid line placed until cultures cleared and then plan for PICC line MRI to evaluate for abscess to low back (possible psoas muscle abscess) xray of left knee, orthopedic consultation for ? arthrocentesis in setting of MRSA bacteremia with sudden onset of non traumatic left knee pain ([place] knee) (2) Pleural effusion due to CHF (congestive heart failure): Status: Acute Assessment and plan: respiratory status stable, responded well to diuresis stop IV diuresis with kidney function worsening, resume home dosing of oral (3) HFrEF (heart failure with reduced ejection fraction): Status: Chronic Assessment and plan: Updated echocardiogram: Conclusion Dilated left ventricle with reduced systolic function. 25 to 30%. There is global hypokinesis Right ventricle is moderately enlarged Right atrium is mildly enlarged. Left atrium is moderately dilated Aortic valve is probably trileaflet and sclerotic. There is mild aortic stenosis. Peak gradient is 33, mean 19 mmHg. There is mild aortic regurgitation Estimated right ventricular systolic pressure is 36 mmHg discontinue IV diuresis, resume home oral dosing tomorrow close monitoring of I&O, daily weights, and monitoring of kidney functions and electrolytes, continue goal directed therapy followed by DR Cruz, will refer for outpatient discharge follow up. (4) Elevated troponin level not due myocardial infarction: Status: Acute Assessment and plan: has remained flat and appears to be chronic in setting of CKD, heart failure and remote elevation in July 2022 with acute event. no further trending of troponin unless becomes symptomatic. (5) Aortic stenosis: Status: Chronic Assessment and plan: per echo Aortic valve is probably trileaflet and sclerotic. There is mild aortic stenosis. Peak gradient is 33, mean 19 mmHg. There is mild aortic regurgitation Qualifiers: Cardiac valve disease etiology: nonrheumatic Qualified Code(s): I35.0 - Nonrheumatic aortic (valve) stenosis (6) CKD (chronic kidney disease) stage 3, GFR 30-59 ml/min: Status: Chronic Assessment and plan: creatinine now rising with diuresis. will stop IV diuresis. appears euvolemic and likely on the primer expeditor and drier side continue to monitor labs daily avoid nephrotoxic drugs, renal dosing as appropriate. Qualifiers: Chronic kidney disease stage 3 subtype: stage 3b (GFR 30-44) Qualified Code(s): N18.32 - Chronic kidney disease, stage 3b (7) Anemia due to stage 3 chronic kidney disease: Status: Chronic Assessment and plan: Stable Qualifiers: Chronic kidney disease stage 3 subtype: stage 3b (GFR 30-44) Qualified Code(s): N18.32 - Chronic kidney disease, stage 3b; D63.1 - Anemia in chronic kidney disease (8) Thrombocytopenia: Status: Chronic Assessment and plan: Trend labs and patient not candidate for DVT prophylaxis with Lovenox or heparin at this time. If his right leg edema worsens and discomfort is revealed DVT, patient may be a candidate for Eliquis. He is at high risk for DVT with his obesity, chronic illness and immobility with chronic edema of the right leg. (9) History of incision and drainage: Status: Acute Assessment and plan: right great toe follow by podiatry in [place] no pain or c/o, dressing clean dry and intact. was instructed to keep intact until outpatient f/u on SaturdayJanuary 06 Subjective Subjective Patient reports: no new complaints, still having pain, tolerating liquids well, tolerating a regular diet, voiding w/o difficulty and afebrile; denies shortness of breath Interval history since last seen: continues to have left sided low back pain and now has developed significant non traumatic left knee pain, out of proportion to exam. his knee is not redness or hot to touch but does not tolerate PROM and as decreased ROM. Exam Narrative Exam Narrative: Chronically ill-appearing male of stated age no acute distress head is atraumatic eyes noninjected oral mucosa moist neck supple no JVD cardiovascular regular rate and rhythm systolic murmur respirations even and unlabored Rales in the bases no wheezing abdomen round nontender bilateral lower extremities positive for edema right lower extremity foot dressing clean dry and intact, chronic venous stasis dermatitis to right anterior kim stable. no sign of infection left knee with limited ROM secondary to pain, no erythema or obvious warmth when palpated, does not tolerated PROM secondary to pain Objective Last Vital Signs Temp 37.4 C 01/05/24 07:43 Pulse 70 01/05/24 07:43 Resp 17 01/05/24 07:43 BP 116/65 01/05/24 07:43 Pulse Ox 97 01/05/24 07:43 Laboratory Results - last 24 hr 01/04/24 01/04/24 01/05/24 21:55 22:00 06:00 WBC 2.64 L RBC 2.75 L Hgb 8.8 L Hct 27.3 L MCV 99 H MCH 32.0 MCHC 32.2 RDW 17.1 H Plt Count 51 L MPV 11.7 H Immature Gran % 0.4 Neutrophils % 61.8 Lymphocytes % 9.8 Monocytes % 21.6 Eosinophils % 5.3 Basophils % 1.1 Nucleated RBC % 0.0 Absolute Neutrophils 1.63 Absolute Lymphocytes 0.26 L Absolute Monocytes 0.57 Absolute Eosinophils 0.14 Absolute Basophils 0.03 RBC Morphology See Below Hypochromasia 1+ Sodium 134 L Potassium 4.2 Chloride 102 Carbon Dioxide 22.8 Anion Gap 9.2 BUN 83 H* Creatinine 2.4 H Cancelled 2.4 H Est GFR (CKD-EPI 2020) 29.21 Cancelled 29.21 Glucose 141 H Calcium 8.4 L Vancomycin Trough 16.2 Cancelled Time Spent with Patient Time Spent with Patient: >50 minutes Time was spent: preparing to see the patient(eg.review tests), obtaining and/or reviewing separately otained hiistory, ordering medications,tests, procedures, indepentently interpreting results and counseling the patient
[2024-01-05 11:56] LABS: Lab Add On Test COMPLETED
[2024-01-05 11:59] LABS: ESR 52 mm/hr (0-20)
[2024-01-05 12:04] LABS: C-Reactive Protein 14.22 mg/dL (<or=0.5)
[2024-01-05] MEDS: Lactobacillus Acidophilus CAP 1 CAP PO ×2 (13:53→20:10)
--- NOTE | 2024-01-05 15:03 | DI.VRAD_ITS ---
PROCEDURE INFORMATION: Exam: XR Left Knee Exam date and time: 01/05/2024 2:30 PM Age: 63 years old Clinical indication: Other: Non traumatic knee pain, bacteremia, ? effusion TECHNIQUE: Imaging protocol: Radiologic exam of the left knee. Views: 3 views. COMPARISON: US EXTREMITY VENOUS BI 04/11/2022 12:46 PM FINDINGS: Bones/joints: Normal. No joint effusion. Soft tissues: Normal. Vasculature: Atherosclerotic change noted in the vasculature. IMPRESSION: No evidence for joint effusion. No acute abnormality noted. Dictated and Authenticated by: Rosalba Gilliland MD. Ordering:IRLANDA Isaacs MD
--- NOTE | 2024-01-06 | DI.MRI_ITS ---
Exam(s) MR PELVIS WO/W EXAM: MR PELVIS WO/W CLINICAL HISTORY: left sided low back pain, ? psoas abscess TECHNIQUE: Multiplanar multisequence MRI of Pelvis was performed. CONTRAST MATERIAL: IV Contrast: 20 mL of Dotarem contrast administered. COMPARISON: None FINDINGS: Bones: There is no fracture or contusion pattern. There is edema in the L4 vertebral body eccentric toward the left. There is a small amount of high signal in the inferior endplate of L3. There are end plate osteophytes at this level the finding may be secondary to degenerative changes however osteomye litis is not excluded. There is a small Schmorl's node at the superior endplate of L4. The SI joints and symphysis pubis are well maintained. Musculotendinous structures: Edema in the right gluteus stewart muscle. Assessment of enhancement in this location limited by artifact. High signal indicating edema in the left quadratus lumborum muscle at the level of L3 through L4. Small fluid collection seen posterior to the left facet joint at L 4 5. There is some peripheral enhancement which could indicate a small abscess. It measures 2.0 x 0.7 by 0.9 cm. Edema in the subcutaneous fat also present. No abnormal signal in the psoas muscles. Intra abdominal and pelvic structures: Diverticulosis of the sigmoid. Small amount of fluid in the lo w pelvis. Splenomegaly, measuring 19.5 cm in length. Left renal cyst. IMPRESSION: Findings consistent with myositis of the left quadratus lumborum muscle. Small fluid collection versu s abscess posterior to the left L4-5 facet joint measuring 2 x 0.7 x 0.9 cm. Abnormal signal with enhancement in the L 3 inferior endplate and a portion of the L4 vertebral body which could represent osteomyelitis versus degenerative changes. No significant disc enhancement. Splenomegaly also present. DATA REPOSITORY:
[2024-01-06] MEDS: Lidocaine Patch Removal 1 EACH TP ×2 (01:24→22:26)
[2024-01-06] MEDS: Methocarbamol 500 MG TAB PO ×3 (03:15→10:40)
[2024-01-06 03:47] VITALS: BP 108/59; PULSE 63; RESP 18; TEMP 36.8; O2SAT 98
[2024-01-06] MEDS: Acetaminophen 325 MG TAB PO ×2 (06:22→16:56)
[2024-01-06 06:48] LABS: Abs Immature Grans 0.02 10^3/uL (0.0-0.06); Absolute Basophil Count 0.04 10^3/uL (0.0-0.2); Absolute Eosinophil Count 0.32 10^3/uL (0.0-0.7); Absolute Lymphocyte Count 0.44 10^3/uL (1.2-3.4); Absolute Monocyte Count 0.65 10^3/uL (0.1-0.8); Absolute Neutrophil Count 2.17 10^3/uL (1.2-6.7); Basophils % 1.1 %; Eosinophils % 8.8 %; HCT 32.1 % (40.0-50.0); HGB 10.1 g/dL (13.5-17.5); Immature Grans % 0.5 %; Lymphocytes % 12.1 %; MCH 31.6 pg (27.0-33.0); MCHC 31.5 % (32.0-36.0); MCV 100 fL (80-95); MPV 12.4 fL (8.0-11.0); Monocytes % 17.9 %; Neutrophils % 59.6 %; RDW 16.7 % (11.8-14.1); RDW-SD 62.2 fL; WBC 3.64 10^3/uL (4.4-10.8)
[2024-01-06 07:03] LABS: Platelet Count 68 10^3/uL (130-400)
[2024-01-06 07:04] LABS: Diff Comment Diff Reviewed; RBC Morphology Normal
[2024-01-06 07:05] LABS: Anion Gap 12.6 mmol/L (3-11); CO2 21.4 mmol/L (21.0-32.0); CREATININE 2.9 mg/dL (0.70-1.30); Calcium 8.5 mg/dL (8.5-10.1); Chloride 100 mmol/L (98-107); Estimated GFR 23.28 (mL/min/1.73m2); Glucose 136 mg/dL (74-106); Potassium 4.2 mmol/L (3.5-5.1); Sodium 134 mmol/L (136-145)
[2024-01-06 07:08] LABS: BUN 99 mg/dL (7-18)
[2024-01-06] MEDS: Benzonatate 100 MG CAP PO ×3 (08:32→20:28)
[2024-01-06] MEDS: Lactobacillus Acidophilus CAP 1 CAP PO ×3 (08:32→20:28)
[2024-01-06] MEDS: Carvedilol 12.5 MG TAB PO ×2 (08:32→20:29)
[2024-01-06] MEDS: Aspirin E.C. 81 MG TABEC PO (08:32)
[2024-01-06] MEDS: Multivitamin TAB 1 TAB PO (08:33)
[2024-01-06] MEDS: Magnesium Oxide 400 MG TAB PO ×2 (08:33→20:28)
[2024-01-06] MEDS: Empaglifozin 10 MG TAB PO (08:33)
[2024-01-06] MEDS: Losartan 50 MG TAB 75 MG PO (08:33)
[2024-01-06] MEDS: Allopurinol 100 MG TAB 400 MG PO (08:34)
[2024-01-06] MEDS: Normal Saline Flush 10 ML SYR IVP ×2 (08:34→20:29)
[2024-01-06] MEDS: Insulin Aspart 300 UNITS/3 ML PEN SC ×3 (08:35→16:56)
[2024-01-06 08:36] VITALS: BP 103/45; PULSE 65; RESP 17; TEMP 36.4; O2SAT 97
[2024-01-06] MEDS: Lidocaine 5% Patch 1 PATCH TP (10:39)
--- NOTE | 2024-01-06 11:18 | W.PM.PROGNOT ---
Date of Service Date of service: 01/06/24 Time of Service: 11:18 Assessment and Plan Assessment and plan (1) Bacteremia: Status: Acute Assessment and plan: Initial and repeat blood cultures growing MRSA No evidence of valvular vegetation on trans thoracic echo completed on Saturday. Continue vancomycin as per sensitivity results -Pharmacy consulted for dosing repeat cultures : new set ordered 01/05 surgical consult for mediport removal: pending will need mid line placed until cultures cleared and then plan for PICC line MRI to evaluate for abscess to low back (possible psoas muscle abscess) -Cr 2.9 and Bun 99 today from 2.4 and 83 xray of left knee: negative for effusion - orthopedic consultation with Dr. Love completed (2) Paraspinal abscess: Status: Acute Assessment and plan: Back pain and tenderness in the setting of persistent MRSA bacteremia PELVIC MRI IMPRESSION: Findings consistent with myositis of the left quadratus lumborum muscle. Small fluid collection versus abscess posterior to the left L4-5 facet joint measuring 2 x 0.7 x 0.9 cm. Abnormal signal with enhancement in the L 3 inferior endplate and a portion of the L4 vertebral body which could represent osteomyelitis versus degenerative changes. No significant disc enhancement. Splenomegaly also present. CONSULT: [facility] spinal surgery recommendation as per Dr. Chawla Ray is to consult IR for drainage ,and for osteomyelitis- IV antibiotics since the patient is neurologically intact. Consultation with Dr. Garnett for IR drainage: Fluid collection is too small, keep on Vancomycin and monitor BARRY, if blood culture still positive today (3) Pleural effusion due to CHF (congestive heart failure): Status: Acute Assessment and plan: respiratory status stable, responded well to diuresis stop IV diuresis with kidney function worsening, resume home dosing of oral when Cr improves Hold losartan (4) HFrEF (heart failure with reduced ejection fraction): Status: Chronic Assessment and plan: Updated echocardiogram: Conclusion Dilated left ventricle with reduced systolic function. 25 to 30%. There is global hypokinesis Right ventricle is moderately enlarged Right atrium is mildly enlarged. Left atrium is moderately dilated Aortic valve is probably trileaflet and sclerotic. There is mild aortic stenosis. Peak gradient is 33, mean 19 mmHg. There is mild aortic regurgitation Estimated right ventricular systolic pressure is 36 mmHg discontinue IV diuresis, resume home oral dosing tomorrow close monitoring of I&O, daily weights, and monitoring of kidney functions and electrolytes, continue goal directed therapy with Coreg, autumn followed by DR Cruz, will refer for outpatient discharge follow up. (5) Elevated troponin level not due myocardial infarction: Status: Acute Assessment and plan: Resolved Most likely chronic in setting of CKD Heart failure and remote elevation in July 2022 with acute event. no further trending of troponin unless becomes symptomatic. (6) Aortic stenosis: Status: Chronic Assessment and plan: per echo Aortic valve is probably trileaflet and sclerotic. There is mild aortic stenosis. Peak gradient is 33, mean 19 mmHg. There is mild aortic regurgitation Stable VS Qualifiers: Cardiac valve disease etiology: nonrheumatic Qualified Code(s): I35.0 - Nonrheumatic aortic (valve) stenosis (7) CKD (chronic kidney disease) stage 3, GFR 30-59 ml/min: Status: Chronic Assessment and plan: Creatinine still rising after stopping IV diuresis. will continue to monitor Resume home oral diuretic with improvement of renal function BMP in AM avoid nephrotoxic drugs, renal dosing as appropriate. Qualifiers: Chronic kidney disease stage 3 subtype: stage 3b (GFR 30-44) Qualified Code(s): N18.32 - Chronic kidney disease, stage 3b (8) Anemia due to stage 3 chronic kidney disease: Status: Chronic Assessment and plan: Stable Qualifiers: Chronic kidney disease stage 3 subtype: stage 3b (GFR 30-44) Qualified Code(s): N18.32 - Chronic kidney disease, stage 3b; D63.1 - Anemia in chronic kidney disease (9) Thrombocytopenia: Status: Chronic Assessment and plan: Trend labs and patient not candidate for DVT prophylaxis with Lovenox or heparin at this time. If a DVT is Dx to the RLE , patient may be a candidate for Eliquis. He is at high risk for DVT with his obesity, chronic illness and immobility with chronic edema of the right leg. (10) History of incision and drainage: Status: Acute Assessment and plan: right great toe follow by podiatry in [place] no pain or c/o, dressing clean dry and intact. was instructed to keep intact until outpatient f/u on SaturdayJanuary 06 but will attempt to initiate podiatry consult as the patient will most likely still be at [facility] Wound culture and Gram stain ordered Discussed with Dr. Correa Subjective Subjective Patient reports: no new complaints, feels better, tolerating liquids well, tolerating a regular diet, voiding w/o difficulty, flatus and bowel movement; denies diarrhea, nausea, vomiting, shortness of breath or fever Exam Narrative Exam Narrative: Constitutional The patient is sitting in chair, comfortable and cooperative during the interview, spouse at bedside . The patient is without acute distress HENMT: Facial structures with normal appearance Neuro:alert and oriented to self, person, place time and situation. No neurological focal deficit, PERRLA Resp: Normal respiratory pattern, speaks in full sentences, unlabored breathing, clear lung bilaterally Cardio: regular rhythm, S1, S2, + murmur, capillary refill<3 sec., bilateral radial and dorsalis pedis pulses are positive GI: Abdomen is not distended, soft and non tender, bowel sounds are present : Negative Costovertebral angle tenderness, no bladder distension Back/spine/Pelvis: lumbo-sacral middle back tenderness, normal alignment Integumentary: right LE : first toe s/p surgery, suttures in place, red,draining foul smelling serosanguinous-greyhish yellow fluid.LLE rash- w/o open skin Psych: RASS 0, congruent mood and normal affect. Objective Last Vital Signs Temp 36.4 C L 01/06/24 08:36 Pulse 65 01/06/24 08:36 Resp 17 01/06/24 08:36 BP 103/45 L 01/06/24 08:36 Pulse Ox 97 01/06/24 08:36 Laboratory Results - last 24 hr 01/05/24 01/05/24 01/06/24 06:00 11:55 06:14 WBC 3.64 L RBC 3.20 L Hgb 10.1 L Hct 32.1 L MCV 100 H MCH 31.6 MCHC 31.5 L RDW 16.7 H Plt Count 68 L MPV 12.4 H Immature Gran % 0.5 Neutrophils % 59.6 Lymphocytes % 12.1 Monocytes % 17.9 Eosinophils % 8.8 Basophils % 1.1 Nucleated RBC % 0.0 Absolute Neutrophils 2.17 Absolute Lymphocytes 0.44 L Absolute Monocytes 0.65 Absolute Eosinophils 0.32 Absolute Basophils 0.04 RBC Morphology Normal ESR 52 H Sodium 134 L Potassium 4.2 Chloride 100 Carbon Dioxide 21.4 Anion Gap 12.6 H BUN 99 H* Creatinine 2.9 H Est GFR (CKD-EPI 2020) 23.28 Glucose 136 H Calcium 8.5 C-Reactive Protein 14.22 H Add-On Test Request COMPLETED Time Spent with Patient Time Spent with Patient: >50 minutes Time was spent: preparing to see the patient(eg.review tests), obtaining and/or reviewing separately otained hiistory, ordering medications,tests, procedures, referring, communicating with other health care giver, indepentently interpreting results, counseling the patient and care coordination
[2024-01-06 11:25] VITALS: BP 107/58; PULSE 62; RESP 18; TEMP 36.3; O2SAT 99
[2024-01-06] MEDS: Gadoterate meglumine 20 ML SYRINGE IVP (12:04)
--- NOTE | 2024-01-06 12:30 | W.ORTHOCONSU ---
Date of service: 01/06/24 Time of Service: 12:30 History of Present Illness History of Present Illness Chief Complaint: Left Knee Pain Narrative: Braeden is a 63-year-old male who has multiple complex medical issues. He recently underwent a right great toe amputation at [facility]. This all seem to go fairly well but he presented to his primary care practitioner's office with some increasing difficulty breathing and feeling ill. He had notable increase in his BNP and a pleural effusion. He has known heart failure. He did have a cough and in the workup had blood cultures. His blood cultures returned positive for MRSA. He also is having some back pain. This is being managed with antibiotics and MRI for the back. However, he started developing some left knee pain on hospital day #3. Orthopedics was consulted and evaluation of the left knee in the setting of bacteremia. He has been able to ambulate although he finds weightbearing to be the most painful. He denies any significant issues with his range of motion. He denies any swelling of the left knee. He denies any previous surgery to the left knee. Consults Consult date: 01/06/24 Requesting physician: Yessy Bello Consult Reason Left Knee Pain in the setting of bacteremia Assessment and Plan Assessment and plan (1) MRSA bacteremia: Status: Acute Assessment and plan: Bucky is a 63-year-old who was admitted for complication of COPD and was discovered to have MRSA bacteremia. There was concern about his left knee given he had some pain. However, his examination is not indicative of a septic joint. He has no effusion. He has no pain with passive motion. He is tibial to move the knee and walk. Therefore this plan to continue to follow conservatively. Negative the knee infections are extremely rare and usually are overwhelmingly positive for pain, swelling, and lack of any motion at all and no weightbearing. I would continue to follow it. Most likely is having some type of reactive inflammatory change around the left knee causing pain to some mild arthritic baseline. 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 Baseline is around 70,000 Lower extremity cellulitis (Acute) Renal insufficiency (Chronic) Impacted cerumen of both ears (Acute) HTN (hypertension) (Chronic) Cirrhosis of liver (Chronic) Myopathy (Acute) Hearing deficit (Acute) Epistaxis (Acute) Chronic anemia (Chronic) Per Dr. Melendez due to iron deficiency. Venofer 300mg every 3months. Cannot follow ferritin due to myopathy causing nonspecific inflammation. 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 Patient receives IVIG over 2 days every 4 weeks. Patient has never tolerated discontinuation Cellulitis Elevated troponin level not due myocardial infarction Bacteremia Acute on chronic renal insufficiency Subclavian vein thrombosis Barretts esophagus Hyperlipidemia Other pancytopenia History of shingles Nonalcoholic steatohepatitis History of deep vein thrombosis Anemia Hypomagnesemia Diabetic ulcer of right foot Acute non-ST segment elevation myocardial infarction Sepsis Vasculitis Obesity Basal cell carcinoma, face Duodenitis Pancytopenia Shingles DVT (deep venous thrombosis) Pulmonary embolism Gout NSTEMI (non-ST elevated myocardial infarction) Chronic kidney disease Cardiomyopathy 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 Sister Diabetes PATERNAL UNCLE Personal history of malignant neoplasm STOMACH Social History Smoking/Tobacco Use Status: Never Smoking risk assessment performed?: Yes Alcohol Intake: never Drug use: Never Substance use type: does not use Housing: house Do you feel safe at home: Yes Do you feel safe in your relationship?: Yes Exam Extrem Other: Evaluation of the left knee shows no effusion. No significant swelling. He does have pain with active range of motion was able to demonstrate knee extension 5 to 115 degrees. Passively does have pain with range of motion. Mild pain over the medial lateral joint line. Once again no effusion. Knee is stable to varus and valgus stress. He is able straight leg raise without defect of the quadriceps. Results Last Vital Signs Temp 35.7 C L 01/09/24 07:09 Pulse 66 01/09/24 07:09 Resp 18 01/09/24 07:09 BP 115/51 L 01/09/24 07:09 Pulse Ox 99 01/09/24 07:09 Labs 01/09/24 05:57 01/09/24 05:57 Labs: Laboratory Results - last 24 hr 01/08/24 01/09/24 10:25 05:57 WBC 2.92 L RBC 3.06 L Hgb 9.7 L Hct 30.2 L MCV 99 H MCH 31.7 MCHC 32.1 RDW 16.8 H Plt Count 75 L MPV 11.7 H Immature Gran % 0.3 Neutrophils % 58.7 Lymphocytes % 13.0 Monocytes % 14.7 Eosinophils % 11.6 Basophils % 1.7 Nucleated RBC % 0.0 Absolute Neutrophils 1.71 Absolute Lymphocytes 0.38 L Absolute Monocytes 0.43 Absolute Eosinophils 0.34 Absolute Basophils 0.05 RBC Morphology Normal Sodium 140 Potassium 5.0 Chloride 108 H Carbon Dioxide 24.1 Anion Gap 7.9 BUN 108 H* Creatinine 2.3 H Est GFR (CKD-EPI 2020) 30.74 Glucose 152 H Calcium 8.6 Random Vancomycin 17.5 Imaging Imaging Studies: X-ray of the left knee shows no significant effusion. Mild arthritic change. Some bone demineralization. No suspicious lesions.
[2024-01-06] MEDS: Diclofenac 1% Gel 100 GM TUBE TP ×3 (12:50→20:29)
--- NOTE | 2024-01-06 14:12 | PHA.REVIEW2 ---
Pharmacy Admission Review Admission Clinical Review Admission Pharmacy Review: History of incision and drainage (Acute) Bacteremia (Acute) Pleural effusion due to CHF (congestive heart failure) (Acute) Elevated troponin level not due myocardial infarction (Acute) bacitracin (From Neosporin ([id number])) Allergy (Mild, Verified 01/02/24 18:36) Skin Rash neomycin (From Neosporin ([id number])) Allergy (Mild, Verified 01/02/24 18:36) Skin Rash polymyxin B (From Neosporin ([id number])) Allergy (Mild, Verified 01/02/24 18:36) Skin Rash methotrexate Allergy (Verified 01/02/24 18:36) Skin Rash morphine Allergy (Verified 01/02/24 18:36) Itching Olavewq-UZR-XjY Reductase Inhibitor (Bksinxy-Uja-Ktk Reductase Inhibitor) Allergy (Verified 01/02/24 18:36) NECROTIZING MYOPATHY Resuscitation Status Full Code Height 5 ft 9 in Weight 116.5 kg Pharmacy Admission Review Renal Dosing Renal Dosing: BUN 99 mg/dL (7-18) H* 01/06/24 06:14 Creatinine 2.9 mg/dL (0.70-1.30) H 01/06/24 06:14 Medications needing adjustments: Reviewed (CrCl 31.9 mL/min, SCr increased from 2.9 and BUN increased from 83) List of meds needing interventions: Current medications are okay Anticoagulation Anticoagulation: Hgb 10.1 g/dL (13.5-17.5) L 01/06/24 06:14 Hct 32.1 % (40.0-50.0) L 01/06/24 06:14 Plt Count 68 10^3/uL (130-400) L 01/06/24 06:14 INR 1.3 (0.9-1.1) H 01/03/24 06:55 Creatinine 2.9 mg/dL (0.70-1.30) H 01/06/24 06:14 DVT Prophylaxis: Reviewed (SCDs - thrombocytopenia, Hgb increased from 8.8 to 10.1, PLT count increased from 51) Relevant Labs Relevant Labs: ESR 52 mm/hr (0-20) H 01/05/24 06:00 Sodium 134 mmol/L (136-145) L 01/06/24 06:14 Potassium 4.2 mmol/L (3.5-5.1) 01/06/24 06:14 Chloride 100 mmol/L (98-107) 01/06/24 06:14 Magnesium 1.9 mg/dL (1.8-2.4) 01/03/24 06:55 C-Reactive Protein 14.22 mg/dL (<or=0.5) H 01/05/24 06:00 Electrolytes, C-Reactive P, ESR: Reviewed (Na 134) DM Control DM Control: Glucose 136 mg/dL (74-106) H 01/06/24 06:14 Hemoglobin A1c 6.2 % (<5.7) H 01/02/24 20:25 Finger Stick Blood Glucose 213 1249 Finger Stick Blood Glucose 213 1246 Finger Stick Blood Glucose 213 1246 Finger Stick Blood Glucose 218 1110 Finger Stick Blood Glucose 218 1110 Finger Stick Blood Glucose 178 0835 Finger Stick Blood Glucose 178 0831 Finger Stick Blood Glucose 178 0831 DM Control: Reviewed Insulin Dosing, Diabetic Medication: Has order for SS insulin and Jardiance 10mg daily Cardiac Review Cardiac Review: Troponin I 189 ng/L (< or =60) H* 01/03/24 06:55 NT-Pro-B Natriuret Pep 63376 pg/mL (<300) H 01/02/24 20:25 Blood Pressure 107/58 1125 Blood Pressure 103/45 0836 Blood Pressure 108/59 0347 BP, HR, EF%: Reviewed (HR WNL) QTc Review QTc: Reviewed (476 from 01/02/24) IV to PO Switch IV Medications: Reviewed (vancomycin) Home Meds Home Med List reviewed: Reviewed Relevent Home Meds Not ordered & why?: Colchicine (PRN gout attack), Aranesp (every 2 weeks), Repatha (every 2 weeks), furosemide (on hold per H+P), glargine (has order for SS insulin) and Venofer (every 12 weeks via infusion) Current Meds Current Medication Order Review: Reviewed Pharmacy Antibiotic Review Relevant Labs: WBC 3.64 10^3/uL (4.4-10.8) L 01/06/24 06:14 Temperature 36.3 C Temperature 36.4 C Temperature 36.8 C Microbiology 01/02/24 20:25 Blood Culture - Preliminary Blood Staph aureus, MRSA 01/04/24 15:30 Blood Culture - Preliminary Blood Gram Positive Cocci 01/04/24 15:15 Blood Culture - Preliminary Blood NO GROWTH 24 HOURS Pharmacy Antibiotic Activity: C/S review and Reviewed, no change Comments: Patient continues on vancomycin day 3 for MRSA bacteremia. Will need 6 weeks of antibiotics per morning meeting. Repeat cultures, 1 showing no growth and 1 showing gram positive cocci. Kidney function has significantly declined over the past 2 days. Ordered another vancomycin level for tonight at 2200 (before next dose) and will adjust as needed.
[2024-01-06 16:10] VITALS: BP 108/63; PULSE 67; RESP 19; TEMP 36.7; O2SAT 99
--- NOTE | 2024-01-06 16:10 | W.SURGCON ---
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 Attempts at stopping therapy resulted in recurrence of disease (2) Thrombocytopenia: Status: Chronic Assessment and plan: Patient sees Dr. Melendez. Due to hypersplenism. Patient's normal platelet count is around 70,000 (3) Subclavian vein thrombosis: Status: Acute Assessment and plan: Remote history (4) Barretts esophagus: Status: Acute (5) Cirrhosis of liver: Status: Chronic Assessment and plan: Due to HORTON (6) Acute on chronic renal insufficiency: Status: Acute (7) CKD (chronic kidney disease) stage 3, GFR 30-59 ml/min: Status: Chronic Qualifiers: Chronic kidney disease stage 3 subtype: stage 3b (GFR 30-44) Qualified Code(s): N18.32 - Chronic kidney disease, stage 3b (8) Anemia due to stage 3 chronic kidney disease: Status: Chronic Qualifiers: Chronic kidney disease stage 3 subtype: stage 3b (GFR 30-44) Qualified Code(s): N18.32 - Chronic kidney disease, stage 3b; D63.1 - Anemia in chronic kidney disease (9) Chronic anemia: Status: Chronic Assessment and plan: Patient does see Dr. Melendez. His anemia is felt to be due to iron deficiency. He receives Venofer 300 mg every 3 months. Also Aranesp 60 mg subcu every 2 weeks for hemoglobin less than 12. His normal baseline hemoglobin is around 10 (10) Diabetes mellitus: Qualifiers: Chronic kidney disease stage: stage 3 (moderate) Chronic kidney disease stage 3 subtype: stage 3b (GFR 30-44) Diabetes mellitus complication detail: with chronic kidney disease Diabetes mellitus complication status: with kidney complications Diabetes mellitus exterminator helper termite insulin use: with fpc use Diabetes mellitus type: type 2 Qualified Code(s): E11.22 - Type 2 diabetes mellitus with diabetic chronic kidney disease; N18.32 - Chronic kidney disease, stage 3b; Z79.4 - intermission coordinator (current) use of insulin (11) Diabetic ulcer of right foot: (12) Obesity: (13) Essential hypertension: (14) Cardiomyopathy: Assessment and plan: See echo in [facility] Qualifiers: Cardiomyopathy type: dilated Qualified Code(s): I42.0 - Dilated cardiomyopathy (15) Acute non-ST segment elevation myocardial infarction: (16) NSTEMI (non-ST elevated myocardial infarction): Assessment and plan: See stress test in [facility] (17) Hypercholesterolemia: (18) Hyperlipidemia: Qualifiers: Hyperlipidemia type: unspecified Qualified Code(s): E78.5 - Hyperlipidemia, unspecified (19) History of deep vein thrombosis: (20) Pulmonary embolism: Assessment and plan: Remote not acute (21) Pleural effusion due to CHF (congestive heart failure): Status: Acute Assessment and plan: Right side moderate in size (22) HTN (hypertension): Status: Chronic (23) HFrEF (heart failure with reduced ejection fraction): Status: Chronic Assessment and plan: Conclusion Dilated left ventricle with reduced systolic function. 25 to 30%. There is global hypokinesis Right ventricle is moderately enlarged Right atrium is mildly enlarged. Left atrium is moderately dilated Aortic valve is probably trileaflet and sclerotic. There is mild aortic stenosis. Peak gradient is 33, mean 19 mmHg. There is mild aortic regurgitation Estimated right ventricular systolic pressure is 36 mmHg (24) Aortic stenosis: Status: Chronic Qualifiers: Cardiac valve disease etiology: nonrheumatic Qualified Code(s): I35.0 - Nonrheumatic aortic (valve) stenosis (25) MRSA bacteremia: Status: Acute Assessment and plan: See below (26) Vascular device, implant, or graft infection or inflammation: Status: Acute Assessment and plan: Planning on removing Mediport Will need to be done under local due to his congestive heart failure/cardiomyopathy Patient has been on vancomycin since 01/01 Will send tip for culture. Patient has a midline placed by the PICC service The Mediport still has as a Roberson needle attached. .dragon 20 mins spent in direct pt care and 70 in non face to face time I did discuss the case with Dr. Valdivia and alhaji Garcia (27) Abscess of muscle of back: Status: Acute Assessment and plan: MRI: IMPRESSION: Findings consistent with myositis of the left quadratus lumborum muscle. Small fluid collection versus abscess posterior to the left L4-5 facet joint measuring 2 x 0.7 x 0.9 cm. Abnormal signal with enhancement in the L 3 inferior endplate and a portion of the L4 vertebral body which could represent osteomyelitis versus degenerative changes. No significant disc enhancement. Splenomegaly also present. -This abscess is too small to attempt IR drainage and will need to be treated with IV antibiotics. Recommend repeat MRI in 5 to 7 days and following clinically *Possible osteomyelitis. 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 See vascular consult from [facility] dated 10/02/2022 he had a Mediport placed at [facility] in 2022 because he is not a candidate for surgery at [facility]. He had blood cultures done on 01/02/2024 and 01/03 that have grown out MRSA. He has been on vancomycin since that time. It is not known if these were drawn from the port or drawn peripherally. He only had wound cultures done today on the toe 01/06/2024. This is assuming the source of the bloodstream infection. Hospitalist would like his port removed. He is extremely difficult IV access and has had multiple ports in the past. He is also had a clot in the subclavian vein in the past. Hosp 01/06/24: Assessment and plan (1) Bacteremia: Status: Acute Assessment and plan: Initial and repeat blood cultures growing MRSA No evidence of valvular vegetation on trans thoracic echo completed on Saturday. Continue vancomycin as per sensitivity results -Pharmacy consulted for dosing repeat cultures : new set ordered 01/05 surgical consult for mediport removal: pending will need mid line placed until cultures cleared and then plan for PICC line MRI to evaluate for abscess to low back (possible psoas muscle abscess) -Cr 2.9 and Bun 99 today from 2.4 and 83 xray of left knee: negative for effusion - orthopedic consultation with Dr. Love completed (2) Paraspinal abscess: Status: Acute Assessment and plan: Back pain and tenderness in the setting of persistent MRSA bacteremia PELVIC MRI IMPRESSION: Findings consistent with myositis of the left quadratus lumborum muscle. Small fluid collection versus abscess posterior to the left L4-5 facet joint measuring 2 x 0.7 x 0.9 cm. Abnormal signal with enhancement in the L 3 inferior endplate and a portion of the L4 vertebral body which could represent osteomyelitis versus degenerative changes. No significant disc enhancement. Splenomegaly also present. CONSULT: [facility] recommendation as per Dr. Cammy Copeland is to consult IR for drainage ,and for osteomyelitis- IV antibiotics since the patient is neurologically intact. Consultation with Dr. Garnett for IR drainage: Fluid collection is too small, keep on Vancomycin and monitor BARRY, if blood culture still positive today (3) Pleural effusion due to CHF (congestive heart failure): Status: Acute Assessment and plan: respiratory status stable, responded well to diuresis stop IV diuresis with kidney function worsening, resume home dosing of oral when Cr improves Hold losartan (4) HFrEF (heart failure with reduced ejection fraction): Status: Chronic Assessment and plan: Updated echocardiogram: Conclusion Dilated left ventricle with reduced systolic function. 25 to 30%. There is global hypokinesis Right ventricle is moderately enlarged Right atrium is mildly enlarged. Left atrium is moderately dilated Aortic valve is probably trileaflet and sclerotic. There is mild aortic stenosis. Peak gradient is 33, mean 19 mmHg. There is mild aortic regurgitation Estimated right ventricular systolic pressure is 36 mmHg discontinue IV diuresis, resume home oral dosing tomorrow close monitoring of I&O, daily weights, and monitoring of kidney functions and electrolytes, continue goal directed therapy with Coreg, autumn followed by DR Cruz, will refer for outpatient discharge follow up. (5) Elevated troponin level not due myocardial infarction: Status: Acute Assessment and plan: Resolved Most likely chronic in setting of CKD Heart failure and remote elevation in July 2022 with acute event. no further trending of troponin unless becomes symptomatic. (6) Aortic stenosis: Status: Chronic Assessment and plan: per echo Aortic valve is probably trileaflet and sclerotic. There is mild aortic stenosis. Peak gradient is 33, mean 19 mmHg. There is mild aortic regurgitation Stable VS Qualifiers: Cardiac valve disease etiology: nonrheumatic Qualified Code(s): I35.0 - Nonrheumatic aortic (valve) stenosis (7) CKD (chronic kidney disease) stage 3, GFR 30-59 ml/min: Status: Chronic Assessment and plan: Creatinine still rising after stopping IV diuresis. will continue to monitor Resume home oral diuretic with improvement of renal function BMP in AM avoid nephrotoxic drugs, renal dosing as appropriate. Qualifiers: Chronic kidney disease stage 3 subtype: stage 3b (GFR 30-44) Qualified Code(s): N18.32 - Chronic kidney disease, stage 3b (8) Anemia due to stage 3 chronic kidney disease: Status: Chronic Assessment and plan: Stable Qualifiers: Chronic kidney disease stage 3 subtype: stage 3b (GFR 30-44) Qualified Code(s): N18.32 - Chronic kidney disease, stage 3b; D63.1 - Anemia in chronic kidney disease (9) Thrombocytopenia: Status: Chronic Assessment and plan: Trend labs and patient not candidate for DVT prophylaxis with Lovenox or heparin at this time. If a DVT is Dx to the RLE , patient may be a candidate for Eliquis. He is at high risk for DVT with his obesity, chronic illness and immobility with chronic edema of the right leg. Review of Systems Narrative: Patient denies any chest pain or shortness of breath today he has no pain at the port site. There is no redness drainage or swelling at the port site. He is still complaining of back pain today-it is the same as it always been. It is not improved or worse All systems reviewed & are unremarkable except as noted in HPI and below PFSH All Active Problems Acute kidney injury superimposed on chronic kidney disease (Acute) Abscess of muscle of back (Acute) Vascular device, implant, or graft infection or inflammation (Acute) MRSA bacteremia (Acute) Autoimmune myopathy (Acute) secondary to statins-Per Rheum. Patient receives IVIG over 2 days every 4 weeks. 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 Baseline is around 70,000 Acute on chronic renal insufficiency (Acute) Lower extremity cellulitis (Acute) Renal insufficiency (Chronic) Impacted cerumen of both ears (Acute) HTN (hypertension) (Chronic) Cirrhosis of liver (Chronic) Subclavian vein thrombosis (Acute) Myopathy (Acute) Barretts esophagus (Acute) Hearing deficit (Acute) Epistaxis (Acute) Chronic anemia (Chronic) Per Dr. Melendez due to iron deficiency. Venofer 300mg every 3months. Cannot follow ferritin due to myopathy causing nonspecific inflammation. Normal hemoglobin is around 10 Edema (Acute) Heart murmur, systolic (Acute) CALDERON (dyspnea on exertion) (Acute) Diastolic dysfunction (Acute) Excess ear wax (Acute) Weakness of both legs (Acute) Nocturnal cough (Acute) Medication monitoring encounter (Acute) Skin cancer, basal cell (Acute) face Elevated troponin (Acute) Medical History Hyperlipidemia Other pancytopenia History of shingles Nonalcoholic steatohepatitis History of deep vein thrombosis Anemia Hypomagnesemia Diabetic ulcer of right foot Acute non-ST segment elevation myocardial infarction Sepsis Vasculitis Obesity Basal cell carcinoma, face Duodenitis Pancytopenia Shingles DVT (deep venous thrombosis) Pulmonary embolism Gout NSTEMI (non-ST elevated myocardial infarction) Chronic kidney disease Cardiomyopathy 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 Sister Diabetes PATERNAL UNCLE Personal history of malignant neoplasm STOMACH Social History Smoking/Tobacco Use Status: Never Smoking risk assessment performed?: Yes Alcohol Intake: never Drug use: Never Substance use type: does not use Housing: house Do you feel safe at home: Yes Do you feel safe in your relationship?: Yes Exam Narrative Exam Narrative: PHYSICAL EXAM GENERAL APPEARANCE: Alert, healthy appearance, oriented, x 3,? in no acute distress HYDRATION: Well hydrated HEAD, EYES, EARS, NECK, THROAT: Head is normocephalic, pupils equal, round, reactive to light and accommodation, ocular movement intact, sclera clear and no jaundice. ?Edentulous. The port is a right IJ port. Chronic sun damage. NECK: Neck supple.? No JVD LUNGS: normal respiration/normal chest excursion. ?Clear to auscultation bilaterally. ?No wheeze. ?HEART: Regular rate and rhythm. no murmurs EXTREMITY: The right foot is dressed and not visualized ABDOMEN: soft and non-tender to palpation.? Results Last Vital Signs Temp 36.3 C L 01/06/24 11:25 Pulse 62 01/06/24 11:25 Resp 18 01/06/24 11:25 BP 107/58 L 01/06/24 11:25 Pulse Ox 99 01/06/24 11:25 Labs 01/07/24 05:45 01/07/24 05:45 Labs: Laboratory Results - last 24 hr 01/06/24 06:14 WBC 3.64 L RBC 3.20 L Hgb 10.1 L Hct 32.1 L MCV 100 H MCH 31.6 MCHC 31.5 L RDW 16.7 H Plt Count 68 L MPV 12.4 H Immature Gran % 0.5 Neutrophils % 59.6 Lymphocytes % 12.1 Monocytes % 17.9 Eosinophils % 8.8 Basophils % 1.1 Nucleated RBC % 0.0 Absolute Neutrophils 2.17 Absolute Lymphocytes 0.44 L Absolute Monocytes 0.65 Absolute Eosinophils 0.32 Absolute Basophils 0.04 RBC Morphology Normal Sodium 134 L Potassium 4.2 Chloride 100 Carbon Dioxide 21.4 Anion Gap 12.6 H BUN 99 H* Creatinine 2.9 H Est GFR (CKD-EPI 2020) 23.28 Glucose 136 H Calcium 8.5
--- NOTE | 2024-01-06 16:29 | W.PODCONSULT ---
Date of service: 01/06/24 Time of Service: 16:30 Assessment and Plan Assessment and plan (1) CKD (chronic kidney disease) stage 3, GFR 30-59 ml/min: Status: Chronic Qualifiers: Chronic kidney disease stage 3 subtype: stage 3b (GFR 30-44) Qualified Code(s): N18.32 - Chronic kidney disease, stage 3b (2) Ulcer of foot: Status: Acute (3) Diabetic ulcer of right foot: (4) Cellulitis: Status: Acute (5) Surgical site infection: Status: Acute Assessment and plan: Patient was seen bedside today. There is some drainage from the right hallux incision site. The incision site was flushed with copious amounts of sterile saline. I recommend x-rays today. I recommend IV antibiotics. Can consider vancomycin and Zosyn for the right foot. I recommend cultures of the right foot. Dressings were applied with dry sterile dressing. Will continue to follow History of Present Illness Narrative: This is a 63-year-old male patient with multiple comorbidities consulted for right hallux infection. Patient states that he is 2 weeks status post surgical correction for nonhealing ulcer. There is drainage from the wound. States that surgery otherwise has been going well. Denies any other pedal complaints. Ambulatory with a walker. He states that he has had vascular testing done at [facility] about 70% circulation to the foot Review of Systems Musculoskeletal Comments: Ambulatory with a walker Integumentary/Breasts Comments: Surgical site infection to the right hallux Neurologic Comments: Light touch sensation absent to the feet PFSH All Active Problems (Updated 01/06/24 @ 16:34 by Adore Mccann DPM) Surgical site infection (Acute) Cellulitis (Acute) Paraspinal abscess (Acute) History of incision and drainage (Acute) Pleural effusion due to CHF (congestive heart failure) (Acute) Elevated troponin level not due myocardial infarction (Acute) Anemia due to stage 3 chronic kidney disease (Chronic) CKD (chronic kidney disease) stage 3, GFR 30-59 ml/min (Chronic) Adverse effect of statin (Acute) 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 Aortic stenosis (Chronic) Bacteremia (Acute) Heart failure (Acute) Non-ST elevation PR (NSTEMI) (Acute) Discharge planning issues (Acute) Encounter for deep vein thrombosis (DVT) prophylaxis (Acute) Acute bronchitis (Acute) Ulcer of foot (Acute) Thyroid nodule (Acute) Fever (Acute) HFrEF (heart failure with reduced ejection fraction) (Chronic) 08/30 EF: 23% /global wall hypokinesis/fixed apical defect nuclear stress test Thrombocytopenia (Chronic) Acute on chronic renal insufficiency (Acute) Lower extremity cellulitis (Acute) Impacted cerumen of both ears (Acute) HTN (hypertension) (Chronic) Cirrhosis of liver (Chronic) Subclavian vein thrombosis (Acute) Myopathy (Acute) Barretts esophagus (Acute) Hearing deficit (Acute) Epistaxis (Acute) Chronic anemia (Chronic) Edema (Acute) Heart murmur, systolic (Acute) CALDERON (dyspnea on exertion) (Acute) Diastolic dysfunction (Acute) Renal insufficiency (Chronic) Excess ear wax (Acute) Weakness of both legs (Acute) Nocturnal cough (Acute) Medication monitoring encounter (Acute) Skin cancer, basal cell (Acute) face Elevated troponin (Acute) Medical History Hyperlipidemia Other pancytopenia History of shingles Nonalcoholic steatohepatitis History of deep vein thrombosis Anemia Hypomagnesemia Diabetic ulcer of right foot Acute non-ST segment elevation myocardial infarction Sepsis Vasculitis Obesity Basal cell carcinoma, face Duodenitis Pancytopenia Shingles DVT (deep venous thrombosis) Pulmonary embolism Gout NSTEMI (non-ST elevated myocardial infarction) Chronic kidney disease Cardiomyopathy 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 Sister Diabetes PATERNAL UNCLE Personal history of malignant neoplasm STOMACH Social History Smoking/Tobacco Use Status: Never Smoking risk assessment performed?: Yes Alcohol Intake: never Drug use: Never Substance use type: does not use Housing: house Do you feel safe at home: Yes Do you feel safe in your relationship?: Yes Exam Extrem Other: Bilateral lower extremity flexible exam: Derm: Incision site noted to the medial aspect of the right hallux with mild erythema and edema send serous drainage noted from the ulcer incision site not completely healed yet sutures are in place there is no pamela dehiscence noted. Skin is otherwise warm dry and supple no other open lesions or ulcerations noted. Venous skin changes noted to the plantar aspect of the right leg. Vascular: DP PT pulses are nonpalpable likely secondary to edema bilaterally there is pitting edema noted bilaterally. Hair growth noted to be absent bilaterally. MSK: No tenderness to palpation noted bilaterally ambulatory with a walker. Neuro: Light touch sensation absent bilateral Results Last Vital Signs Temp 98.1 F 01/06/24 16:10 Pulse 67 01/06/24 16:10 Resp 19 01/06/24 16:10 BP 108/63 01/06/24 16:10 Pulse Ox 99 01/06/24 16:10 Labs 01/06/24 06:14 01/06/24 06:14 Labs: Laboratory Results - last 24 hr 01/06/24 06:14 WBC 3.64 L RBC 3.20 L Hgb 10.1 L Hct 32.1 L MCV 100 H MCH 31.6 MCHC 31.5 L RDW 16.7 H Plt Count 68 L MPV 12.4 H Immature Gran % 0.5 Neutrophils % 59.6 Lymphocytes % 12.1 Monocytes % 17.9 Eosinophils % 8.8 Basophils % 1.1 Nucleated RBC % 0.0 Absolute Neutrophils 2.17 Absolute Lymphocytes 0.44 L Absolute Monocytes 0.65 Absolute Eosinophils 0.32 Absolute Basophils 0.04 RBC Morphology Normal Sodium 134 L Potassium 4.2 Chloride 100 Carbon Dioxide 21.4 Anion Gap 12.6 H BUN 99 H* Creatinine 2.9 H Est GFR (CKD-EPI 2020) 23.28 Glucose 136 H Calcium 8.5
--- NOTE | 2024-01-06 16:45 | DI.RAD_ITS ---
Exam(s) XR FOOT RT COMPLETE EXAM: XR FOOT RT COMPLETE CLINICAL HISTORY: infection. TECHNIQUE: 2D digital imaging was performed of the right foot. Three images were obtained. AP, obl ique and lateral views were obtained. COMPARISON: No exams were available for comparison FINDINGS: BONES: No acute fracture is present. No bony destructive lesion is seen. There is a plantar calcaneal spur. JOINTS: The distal phalanx of the great toe is dorsally subluxed relative to the proximal phalanx. T here are mild degenerative changes seen in the foot. SOFT TISSUE: There is diffuse soft tissue swelling of the foot. No soft tissue gas is identified. V ascular calcifications are present. IMPRESSION: 1. No destructive changes are seen radiographically to suggest acute osteomyelitis. 2. Subluxation of the interphalangeal joint of the great toe. 3. Soft tissue swelling of the foot and particularly the great toe. No soft tissue gas is appreciate d. 4. Extensive atherosclerotic calcification is present. DATA REPOSITORY: RADIATION DOSE DELIVERED:
--- NOTE | 2024-01-06 17:37 | PDOC.CMPRO ---
Date of service: 01/06/24 Time of Service: 17:37 Care Management Progress Note Progress Note Text Progress Note Text: Anticipate possible L/T IV ABX: awaiting wound cultures results and sensitivities; Podiatry following. Discharge Potential Discharge Needs: Consult Consult Services Needed: Other (Podiatry), PT Evaluation and PCP F/U Appt Anticipated Barriers to Discharge: Medical Status (Culture results) and Treatment delay Patient/Family Education Needs: Review discharge instructions, discuss Ask Me Three Transportation: Private vehicle Plan: Awaiting results and treatment recommendations to determine discharge planning considerations, CM following. SDOH(Care Management) Screening Will the Patient Participate in the Screening?: Yes Do you worry about having a steady place to live?: no In the past 12 months, have you had to go without electric, gas, oil or water in your home?: no Have you or anyone in your house had to go without enough food to eat?: no Has lack of transportation kept you from medical appointments or from doing things needed for daily living?: no Has anyone in your support network made you feel unsafe for any reason?: no
[2024-01-06 18:16] VITALS: BP 109/56; PULSE 70; RESP 18; TEMP 36.5; O2SAT 100
[2024-01-06 23:58] VITALS: BP 120/59; PULSE 65; RESP 19; TEMP 36.5; O2SAT 99
[2024-01-07] MEDS: Acetaminophen 325 MG TAB PO ×2 (02:46→09:32)
[2024-01-07] MEDS: Methocarbamol 500 MG TAB PO ×2 (02:46→23:36)
[2024-01-07 03:41] VITALS: BP 106/54; PULSE 63; RESP 18; TEMP 36.5; O2SAT 98
[2024-01-07 07:13] LABS: Abs Immature Grans 0.01 10^3/uL (0.0-0.06); Absolute Basophil Count 0.03 10^3/uL (0.0-0.2); Absolute Eosinophil Count 0.21 10^3/uL (0.0-0.7); Absolute Lymphocyte Count 0.32 10^3/uL (1.2-3.4); Absolute Monocyte Count 0.44 10^3/uL (0.1-0.8); Basophils % 1.1 %; Eosinophils % 7.5 %; HCT 28.5 % (40.0-50.0); HGB 9.2 g/dL (13.5-17.5); Immature Grans % 0.4 %; Lymphocytes % 11.4 %; MCH 31.6 pg (27.0-33.0); MCHC 32.3 % (32.0-36.0); MCV 98 fL (80-95); Monocytes % 15.7 %; Neutrophils % 63.9 %; RBC 2.91 10^6/uL (4.36-5.78); RDW 16.8 % (11.8-14.1); RDW-SD 60.1 fL; WBC 2.81 10^3/uL (4.4-10.8)
[2024-01-07 07:41] LABS: Diff Comment Diff Reviewed; Platelet Count 61 10^3/uL (130-400); RBC Morphology Normal
[2024-01-07 07:44] VITALS: BP 118/60; PULSE 64; RESP 14; TEMP 35.9; O2SAT 98
[2024-01-07 07:57] LABS: Anion Gap 10.5 mmol/L (3-11); CO2 21.5 mmol/L (21.0-32.0); CREATININE 2.7 mg/dL (0.70-1.30); Calcium 8.5 mg/dL (8.5-10.1); Chloride 103 mmol/L (98-107); Estimated GFR 25.36 (mL/min/1.73m2); Glucose 150 mg/dL (74-106); Potassium 4.7 mmol/L (3.5-5.1); Sodium 135 mmol/L (136-145)
[2024-01-07 07:59] LABS: BUN 108 mg/dL (7-18)
[2024-01-07] MEDS: Lactobacillus Acidophilus CAP 1 CAP PO ×3 (08:02→20:59)
[2024-01-07] MEDS: Allopurinol 100 MG TAB 400 MG PO (08:02)
[2024-01-07] MEDS: Multivitamin TAB 1 TAB PO (08:02)
[2024-01-07] MEDS: Carvedilol 12.5 MG TAB PO ×2 (08:03→20:59)
[2024-01-07] MEDS: Magnesium Oxide 400 MG TAB PO ×2 (08:03→20:59)
[2024-01-07] MEDS: Normal Saline Flush 10 ML SYR IVP ×3 (08:03→21:01)
[2024-01-07] MEDS: Benzonatate 100 MG CAP PO ×3 (08:03→20:59)
[2024-01-07] MEDS: Empaglifozin 10 MG TAB PO (08:03)
[2024-01-07] MEDS: Aspirin E.C. 81 MG TABEC PO (08:03)
[2024-01-07] MEDS: Insulin Aspart 300 UNITS/3 ML PEN SC ×3 (08:04→16:55)
[2024-01-07] MEDS: Diclofenac 1% Gel 100 GM TUBE TP ×4 (08:04→21:08)
--- NOTE | 2024-01-07 08:55 | PGE_ITS ---
Date of Service Date of service: 01/07/24 Time of Service: 08:45 Assessment and Plan Assessment and plan (1) CKD (chronic kidney disease) stage 3, GFR 30-59 ml/min: Status: Chronic Qualifiers: Chronic kidney disease stage 3 subtype: stage 3b (GFR 30-44) Qualified Code(s): N18.32 - Chronic kidney disease, stage 3b (2) Ulcer of foot: Status: Acute (3) Diabetic ulcer of right foot: (4) Cellulitis: Status: Acute (5) Surgical site infection: Status: Acute Assessment and plan: Patient was seen and evaluated today. Serosanguineous drainage persists. The sutures appear to be loose and were removed today with sterile scissors and pickups. No dehiscence noted at this time however drainage persists. This is likely postsurgical changes with lymphedema. I applied dressing changes with Betadine, 4 x 4, Kerlix and an Pedro wrap. I recommend keeping the right lower extremity elevated at all times. Patient will benefit from further compression. No evidence for osteomyelitis noted on x-rays today. No evidence for soft tissue emphysema on imaging either. There is no evidence for underlying abscess as noted on physical exam today. Therefore, no further surgical intervention is indicated at this time however we will continue to monitor. I do recommend continued antibiotics for now. Subjective Subjective Interval history since last seen: Patient seen bedside today resting comfortably. Offers no new pedal complaints. Exam Extrem Other: Bilateral lower extremity physical exam: Derm: Incision site noted to the medial aspect of the right hallux with mild erythema and edema there is serosanguinous drainage noted from the ulcer incision site not completely healed yet sutures are in place there is no pamela dehiscence noted, no crepitus no bogginess no fluctuance no proximal streaking or lymphangitis. Skin is otherwise warm dry and supple no other open lesions or ulcerations noted. Venous skin changes noted to the plantar aspect of the right leg. Vascular: DP PT pulses are nonpalpable likely secondary to edema bilaterally there is pitting edema noted bilaterally. Hair growth noted to be absent bilaterally. MSK: No tenderness to palpation noted bilaterally ambulatory with a walker. Neuro: Light touch sensation absent bilateral Objective Last Vital Signs Temp 96.6 F L 01/07/24 07:44 Pulse 64 01/07/24 07:44 Resp 14 01/07/24 07:44 BP 118/60 01/07/24 07:44 Pulse Ox 98 01/07/24 07:44 Laboratory Results - last 24 hr 01/06/24 01/07/24 22:25 05:45 WBC 2.81 L RBC 2.91 L Hgb 9.2 L Hct 28.5 L MCV 98 H MCH 31.6 MCHC 32.3 RDW 16.8 H Plt Count 61 L MPV 13.0 H Immature Gran % 0.4 Neutrophils % 63.9 Lymphocytes % 11.4 Monocytes % 15.7 Eosinophils % 7.5 Basophils % 1.1 Nucleated RBC % 0.0 Absolute Neutrophils 1.80 Absolute Lymphocytes 0.32 L Absolute Monocytes 0.44 Absolute Eosinophils 0.21 Absolute Basophils 0.03 RBC Morphology Normal Sodium 135 L Potassium 4.7 Chloride 103 Carbon Dioxide 21.5 Anion Gap 10.5 BUN 108 H* Creatinine 2.7 H Est GFR (CKD-EPI 2020) 25.36 Glucose 150 H Calcium 8.5 Vancomycin Trough 25.0 H* Time Spent with Patient Time Spent with Patient: 25-34 minutes Time was spent: preparing to see the patient(eg.review tests), obtaining and/or reviewing separately otained hiistory, referring, communicating with other health career development manager, indepentently interpreting results, counseling the patient and care coordination
[2024-01-07] MEDS: Lidocaine 5% Patch 1 PATCH TP (09:31)
--- NOTE | 2024-01-07 10:28 | PGE_ITS ---
Date of Service Date of service: 01/07/24 Time of Service: 10:28 Assessment and Plan Assessment and plan (1) Bacteremia: Status: Acute Assessment and plan: Initial and repeat blood cultures growing MRSA No evidence of valvular vegetation on trans thoracic echo completed on Saturday. Continue vancomycin as per sensitivity results -Pharmacy consulted for dosing repeat cultures : new set ordered 01/05: Negative at 24 hours surgical consult for mediport removal: - Removed by Dr. Gonzalez; high suspicion of chronic infection- tip sent for culture -Sutures to be removed in 7 to 10 days Mid-line placed on 01/05/24-until cultures clears and then plan for PICC line?will place an order for PICC insertion on 01/08/2024, tomorrow. MRI to evaluate for abscess to low back (possible psoas muscle abscess) xray of left knee: negative for effusion - orthopedic consultation with Dr. Love completed Scheduled diclofenac gel for topical application Trial of scheduled Tylenol oral for 24 hours Patient is not a candidate for systemic NSAIDs (2) Paraspinal abscess: Assessment and plan: Back pain and tenderness in the setting of persistent MRSA bacteremia resulting in recommendations to continue IV antibiotics as the collection is too small to be scanned, but with persistent bacteremia form blood culture from , a CT of the abdomen done - cultures are negative at 24 hours PELVIC MRI IMPRESSION: Findings consistent with myositis of the left quadratus lumborum muscle. Small fluid collection versus abscess posterior to the left L4-5 facet joint measuring 2 x 0.7 x 0.9 cm. Abnormal signal with enhancement in the L 3 inferior endplate and a portion of the L4 vertebral body which could represent osteomyelitis versus degenerative changes. No significant disc enhancement. Splenomegaly also present. CONSULTs on 01/06/2024: -[facility] [place] recommendation as per Dr. Chawla Ray is to consult IR for drainage ,and for osteomyelitis- IV antibiotics since the patient is neurologically intact. - [facility]: Consultation with Dr. Garnett for IR drainage: Fluid collection is too small, keep on Vancomycin and monitor BARRY for BARRY> 2 might indicate a certain degree of resistance of the MRSA ro vancomycin Lab contacted to get the BARRY today : BARRY < 0.5 - meaning no resistance (3) History of incision and drainage: Status: Acute Assessment and plan: right great toe follow by podiatry in [place] no pain or c/o, Dressing removed yesterday: foul smelling with grayish-yellow pus and copious serosanguinous drainage Podiatry consult initiated and ongoing: please read Dr. Mccann's notes -Zosyn started as per recommendations but stopped as Gram stain revealed GPC/ patient never got the first dose d/t timely results - No osteomyelitis per XR Wound culture and Gram stain: GPC with further culture results pending (4) Pleural effusion due to CHF (congestive heart failure): Status: Acute Assessment and plan: respiratory status stable, responded well to diuresis stop IV diuresis with kidney function worsening, resume home dosing of oral when Cr improves: Cr 2.4 from 2.7 Hold losartan (5) HFrEF (heart failure with reduced ejection fraction): Status: Chronic Assessment and plan: Updated echocardiogram: Conclusion Dilated left ventricle with reduced systolic function. 25 to 30%. There is global hypokinesis Right ventricle is moderately enlarged Right atrium is mildly enlarged. Left atrium is moderately dilated Aortic valve is probably trileaflet and sclerotic. There is mild aortic stenosis. Peak gradient is 33, mean 19 mmHg. There is mild aortic regurgitation Estimated right ventricular systolic pressure is 36 mmHg discontinue IV diuresis, resume home oral dosing tomorrow as Cr is improving Continue close monitoring of I&O, daily weights, and monitoring of kidney functions and electrolytes, Continue goal directed therapy. The patient is on with Coreg, jardiance, losartan held d/t GUY Followed by Dr Cruz: OPT referral on discharge (6) Elevated troponin level not due myocardial infarction: Status: Acute Assessment and plan: Resolved and the patient remains symptoms free Most likely chronic in setting of CKD Heart failure and remote elevation in July 2022 with acute event. no further trending of troponin unless becomes symptomatic. (7) Aortic stenosis: Status: Chronic Assessment and plan: The patient has a known cardiac murmur in the setting of MRSA bacteremia echo cardiogram was completed and no vegetation was reported As per per echocardiogram report Aortic valve is probably trileaflet and sclerotic. There is mild aortic stenosis. Peak gradient is 33, mean 19 mmHg. There is mild aortic regurgitation No signs and symptoms of decompensation Qualifiers: Cardiac valve disease etiology: nonrheumatic Qualified Code(s): I35.0 - Nonrheumatic aortic (valve) stenosis (8) Anemia due to stage 3 chronic kidney disease: Status: Chronic Assessment and plan: Remains stable CBC in AM Qualifiers: Chronic kidney disease stage 3 subtype: stage 3b (GFR 30-44) Qualified Code(s): N18.32 - Chronic kidney disease, stage 3b; D63.1 - Anemia in chronic kidney disease (9) Thrombocytopenia: Status: Chronic Assessment and plan: Platelets are still above 50 w/o acute bleeding Trend labs and patient not candidate for DVT prophylaxis with Lovenox or heparin at this time. SCDs for DVT prophylaxis If a DVT is Dx to the RLE , patient may be a candidate for Eliquis. He is at high risk for DVT with his obesity, chronic illness and immobility with chronic edema of the right leg. (10) Acute kidney injury superimposed on chronic kidney disease: Status: Acute Assessment and plan: On admission patient was CKD stage IV IV diuretic initiated for CHF presentation with rising creatinine level noticed IV diuretics were stopped but creatinine was still rising Today Cr down to 2.7 from 2.9/ BUN from 99 to 108, ratio is now 40 from 34 Resuming home oral diuretic with improvement of renal function BMP in AM avoid nephrotoxic drugs, renal dosing as appropriate. Discussed with Dr. Correa Subjective Subjective Patient reports: no new complaints, feels better, still having pain, tolerating liquids well, tolerating a regular diet, voiding w/o difficulty, flatus, bowel movement and other (non-productive cough on deep breathing ); denies diarrhea, nausea, vomiting, shortness of breath or fever Exam Narrative Exam Narrative: Constitutional The patient is lying in bed sitting in chair, comfortable and cooperative during the interview, spouse at bedside . The patient is without acute distress HENMT: Facial structures with normal appearance Neuro:alert and oriented to self, person, place time and situation. No neurological focal deficit. No cauda equina finding on exam Resp: Normal respiratory pattern, speaks in full sentences, unlabored breathing, clear lung bilaterally w decreased bases Cardio: regular rhythm, S1, S2, + murmur ( known), LE edema R>L GI: Abdomen is not distended, soft and non tender, bowel sounds are present : Negative Costovertebral angle tenderness Back/spine/Pelvis: lumbo-sacral right sided tenderness, normal alignment Integumentary: right LE : first toe s/p surgeryPTA, dressing by podaitry DCI Psych: RASS 0, congruent mood and normal affect. Objective Last Vital Signs Temp 35.9 C L 01/07/24 07:44 Pulse 64 01/07/24 07:44 Resp 14 01/07/24 07:44 BP 118/60 01/07/24 07:44 Pulse Ox 98 01/07/24 07:44 Laboratory Results - last 24 hr 01/06/24 01/07/24 22:25 05:45 WBC 2.81 L RBC 2.91 L Hgb 9.2 L Hct 28.5 L MCV 98 H MCH 31.6 MCHC 32.3 RDW 16.8 H Plt Count 61 L MPV 13.0 H Immature Gran % 0.4 Neutrophils % 63.9 Lymphocytes % 11.4 Monocytes % 15.7 Eosinophils % 7.5 Basophils % 1.1 Nucleated RBC % 0.0 Absolute Neutrophils 1.80 Absolute Lymphocytes 0.32 L Absolute Monocytes 0.44 Absolute Eosinophils 0.21 Absolute Basophils 0.03 RBC Morphology Normal Sodium 135 L Potassium 4.7 Chloride 103 Carbon Dioxide 21.5 Anion Gap 10.5 BUN 108 H* Creatinine 2.7 H Est GFR (CKD-EPI 2020) 25.36 Glucose 150 H Calcium 8.5 Vancomycin Trough 25.0 H* Time Spent with Patient Time Spent with Patient: >50 minutes Time was spent: preparing to see the patient(eg.review tests), obtaining and/or reviewing separately otained hiistory, ordering medications,tests, procedures, referring, communicating with other health early breastfeeding care specialist, indepentently interpreting results, counseling the patient and care coordination
[2024-01-07 11:13] LABS: Vancomycin, Trough 24.7 ug/mL (10.0-20.0)
--- NOTE | 2024-01-07 11:29 | ROE_ITS ---
Date of service: 01/07/24 Time of Service: 12:21 Operative Note Operative Note DATE OF PROCEDURE: 01/07/24 PRE-OP DIAGNOSIS: MSRA bacteremia POST-OP DIAGNOSIS: same PROCEDURE: Removal of right IJ buried reservoir vascular access port SURGEON: Ada Gonzalez ANESTHESIA TYPE: Local By Surgeon Refer to Anesthesia Record ESTIMATED BLOOD LOSS: 2 PATHOLOGY: other COMPLICATIONS: None Patient was transported to: floor Patient's condition: stable Procedure Description: The pt is here today for Power Port removal.? The port is: Right IJ power port Pt patient currently has a suspected MRSA infections.? He has had x 4 sets of positive blood cultures with MRSA. Pt is not on steroids or chemo. He is immunocompromised and receives chronic IgG every 2 weeks. He has normal chronic thrombocytopenia. the pt has no complications with local anesthetics in the past.? The pt has had no problems with healing or scarring in the past. Informed consent is obtained explaining risks and benefits of the procedure including but not limited to: not removing the port, bleeding/hematoma, infection, scarring/poor cosemesis, wound healing issues, damage to vein requiring surgery, complications from anesthesia, other ?The site was prepped and draped in usual manner using Betadine scrub solution.? Time is performed per procedure.? The site is infiltrated with 20cc of 1% lidocaine with epi. The previous incision was opened by excising the old scar. The port pocket was then opened and the port was removed. The hub was not sutured to the skin. The port has been in almost 18 months. There is no signs of incorporation it slips up very easily. ?I did not have to dissect out the catheter at all. Pressure is held over the vessel for 2 minutes. 10 cc a trans exam it as it was instilled into the wound topically. No bleeding is noted. The port pocket was then closed using a #4-0 Monocryl to obliterate the pocket. Skin is closed with 4-0 nylon in interrupted fashion. Sterile pressure dressing is applied. The tip was sent for culture the pt tolerated the procedure well without complications. The patient was returned to [facility].
[2024-01-07] MEDS: Lidocaine 1% Multi-Dose W/EPI 1/100,000 50 ML VIAL (11:50)
[2024-01-07] MEDS: Tranexamic Acid 1,000 MG/10 ML VIAL 1000 MG (12:05)
[2024-01-07] MEDS: Normal Saline 1,000 ML 50 ML IV (16:18)
[2024-01-07 16:30] VITALS: BP 119/67; PULSE 67; RESP 15; TEMP 36.2; O2SAT 100
[2024-01-07] MEDS: Acetaminophen 325 MG TAB 650 MG PO ×2 (17:13→23:29)
--- NOTE | 2024-01-07 19:49 | DI.RAD_ITS ---
Exam(s) XR PORTABLE CHEST AP POST LINE EXAM: XR PORTABLE CHEST AP POST LINE CLINICAL HISTORY: picc line placement TECHNIQUE: 2D digital imaging was performed. COMPARISON: CR XR CHEST 2V PA LATERAL from 01/02/2024 FINDINGS: Exam limited by under penetration and semi upright positioning PICC line is seen coiled in the left axillary region. LUNGS: Pulmonary vascular prominence. No focal infiltrate. Mild pulmonary edema. No pleural abnorm ality seen. HEART: Markedly enlarged. AORTA: Normal diameter. BONES: Unremarkable for age. Soft tissues: Unremarkable. IMPRESSION: PICC line is coiled in the left axillary region and should be repositioned. Cardiomegaly and CHF. DATA REPOSITORY: RADIATION DOSE DELIVERED:
--- NOTE | 2024-01-07 20:46 | DI.VRAD_ITS ---
Addendum created by Slade Aguilera MD on 01/07/2024 8:49:20 PM EDT: THIS REPORT CONTAINS FINDINGS THAT MAY BE CRITICAL TO PATIENT CARE. The findings were verbally communicated via telephone conference with DR Costa at 8:49 PM EDT on 01/07/2024. The findings were acknowledged and understood. Initial report created on 01/07/2024 8:45:28 PM EDT: PROCEDURE INFORMATION: Exam: XR Chest Exam date and time: 01/07/2024 7:41 PM Age: 63 years old Clinical indication: Other: Picc line placement TECHNIQUE: Imaging protocol: Radiologic exam of the chest. Views: 1 view. Total images: 1 COMPARISON: CT CHEST PE CTA 01/02/2024 9:34 PM FINDINGS: Tubes, catheters and devices: Left PICC line which is curled within the soft tissues of the left axilla. Lungs: Vascular congestion and interstitial prominence. Pleural spaces: No pleural effusion or pneumothorax. Heart/Mediastinum: Cardiomegaly. Bones/joints: Unremarkable. IMPRESSION: 1. Malpositioned left PICC line. 2. CHF. Dictated and Authenticated by: Slade Aguilera MD. Ordering:YUE Perez MD
[2024-01-07 20:55] VITALS: BP 116/61; PULSE 66; RESP 19; TEMP 36.2; O2SAT 97
[2024-01-07] MEDS: Docusate Sodium 100 MG CAP PO (20:59)
[2024-01-07] MEDS: Lidocaine Patch Removal 1 EACH TP (21:10)
[2024-01-08] MEDS: Acetaminophen 325 MG TAB 650 MG PO ×2 (05:22→11:44)
[2024-01-08 07:10] LABS: Abs Immature Grans 0.01 10^3/uL (0.0-0.06); Absolute Basophil Count 0.04 10^3/uL (0.0-0.2); Absolute Eosinophil Count 0.33 10^3/uL (0.0-0.7); Absolute Lymphocyte Count 0.41 10^3/uL (1.2-3.4); Absolute Monocyte Count 0.45 10^3/uL (0.1-0.8); Absolute Neutrophil Count 1.61 10^3/uL (1.2-6.7); Basophils % 1.4 %; Eosinophils % 11.6 %; HCT 30.8 % (40.0-50.0); HGB 9.7 g/dL (13.5-17.5); Immature Grans % 0.4 %; Lymphocytes % 14.4 %; MCH 31.3 pg (27.0-33.0); MCHC 31.5 % (32.0-36.0); MCV 99 fL (80-95); MPV 12.2 fL (8.0-11.0); Monocytes % 15.8 %; Neutrophils % 56.4 %; RDW 16.6 % (11.8-14.1); WBC 2.85 10^3/uL (4.4-10.8)
[2024-01-08 07:12] LABS: Platelet Count 72 10^3/uL (130-400)
[2024-01-08 07:21] LABS: Anion Gap 8.7 mmol/L (3-11); CO2 24.3 mmol/L (21.0-32.0); CREATININE 2.3 mg/dL (0.70-1.30); Calcium 8.8 mg/dL (8.5-10.1); Chloride 102 mmol/L (98-107); Estimated GFR 30.74 (mL/min/1.73m2); Glucose 152 mg/dL (74-106); Potassium 4.9 mmol/L (3.5-5.1); Sodium 135 mmol/L (136-145)
[2024-01-08 07:24] LABS: BUN 113 mg/dL (7-18)
[2024-01-08 07:26] LABS: ALT 36 U/L (16-63); AST 54 U/L (15-37); Albumin 2.2 g/dL (3.4-5.0); Alkaline Phosphatase 187 U/L (46-116); Bilirubin, Direct 0.2 mg/dL (0.0-0.2); Bilirubin, Total 0.58 mg/dL (0.2-1.0)
[2024-01-08 07:32] VITALS: BP 113/53; PULSE 63; RESP 18; TEMP 36.1; O2SAT 99
[2024-01-08] MEDS: Insulin Aspart 300 UNITS/3 ML PEN SC ×3 (08:20→16:58)
[2024-01-08] MEDS: Lidocaine 5% Patch 1 PATCH TP (08:21)
[2024-01-08] MEDS: Diclofenac 1% Gel 100 GM TUBE TP ×4 (08:22→19:48)
[2024-01-08] MEDS: Lactobacillus Acidophilus CAP 1 CAP PO ×3 (08:22→19:48)
[2024-01-08] MEDS: Allopurinol 100 MG TAB 400 MG PO (08:22)
[2024-01-08] MEDS: Empaglifozin 10 MG TAB PO (08:23)
[2024-01-08] MEDS: Benzonatate 100 MG CAP PO ×3 (08:23→19:48)
[2024-01-08] MEDS: Aspirin E.C. 81 MG TABEC PO (08:23)
[2024-01-08] MEDS: Docusate Sodium 100 MG CAP PO ×4 (08:23→19:48)
[2024-01-08] MEDS: Magnesium Oxide 400 MG TAB PO ×2 (08:23→19:47)
[2024-01-08] MEDS: Multivitamin TAB 1 TAB PO (08:23)
[2024-01-08] MEDS: Carvedilol 12.5 MG TAB PO ×2 (08:23→19:48)
[2024-01-08] MEDS: Normal Saline Flush 10 ML SYR IVP ×3 (08:25→19:49)
[2024-01-08] MEDS: Methocarbamol 500 MG TAB PO ×2 (08:37→19:48)
[2024-01-08 11:17] VITALS: BP 114/59; PULSE 63; RESP 17; TEMP 36.3; O2SAT 100
--- NOTE | 2024-01-08 11:50 | CMPROGNOTE_ITS ---
Date of service: 01/08/24 Time of Service: 11:50 Care Management Progress Note Progress Note Text Progress Note Text: Bucky continues to be closely monitored and treated with IV ABX. He will need 6 weeks of IV ABX (through 02/17/24) and a follow up with podiatry. His preference is to come [facility] for daily infusions. Per Yessy, he will discharge with a mid- line, which will need to be changed in 4 weeks. New [facility] RN services are needed for wound care, podiatry recommends dressing changes 3Xweek. Anticipate, pt will be medically ready for discharge tomorrow. Discharge Potential Discharge Needs: PCP F/U Appt and Other (Podiatry, will need 1 week follow up.) Anticipated Barriers to Discharge: None Identified Patient/Family Education Needs: Review discharge instructions, discuss Ask Me Three Transportation: Private vehicle Plan: Discharge home on IV ABX with New [facility] RN for wound care. Follow up with podiatry is recommended in 1 week. Pt will follow up with community providers and his discharge plan of care as instructed. CM will continue to follow. SDOH(Care Management) Screening Will the Patient Participate in the Screening?: Yes Do you worry about having a steady place to live?: no In the past 12 months, have you had to go without electric, gas, oil or water in your home?: no Have you or anyone in your house had to go without enough food to eat?: no Has lack of transportation kept you from medical appointments or from doing things needed for daily living?: no Has anyone in your support network made you feel unsafe for any reason?: no Anticipated HH Services Anticipated HH Services at Discharge [facility] (Aris Carly RN, wound care. Adore Mcacnn from Podiatry recommends: betadine dry sterile dressings MWF) Services Needed.
[2024-01-08 13:44] LABS: Vancomycin, Random 17.5 ug/mL
[2024-01-08] MEDS: VANCOMYCIN/WATER (PEG) 1.25 GM/250 ML BAG IVPB (14:20)
--- NOTE | 2024-01-08 14:50 | PGE_ITS ---
Date of Service Date of service: 01/08/24 Time of Service: 14:50 Assessment and Plan Assessment and plan (1) Bacteremia: Status: Acute Assessment and plan: Initial and repeat blood cultures growing MRSA No evidence of valvular vegetation on trans-thoracic echo completed on Saturday. Continue vancomycin as per sensitivity results -Pharmacy consulted for dosing: today on 1250 mg IV Q 48 for level at 17.4 repeat cultures : new set ordered 01/05: Negative at 48 hours surgical consult for mediport removal: - Removed by Dr. Gonzalez; high suspicion of chronic infection- tip sent for culture, minimal colony growing- further results in 24 hours -Sutures to be removed in 7 to 10 days Mid-line placed on 01/05/24 PICC line placement failed on 01/07/2024 d/t ?will place an order for PICC insertion on 01/08/2024, tomorrow. MRI to evaluate for abscess to low back was negative with Findings consistent with myositis of the left quadratus lumborum muscle xray of left knee: negative for effusion - orthopedic consultation with Dr. Love completed as per discussion and review no further imaging study was needed at the time. Scheduled diclofenac gel for topical application as well as lidocaine patch Trial of scheduled Tylenol oral for 24 hours completed with ongoing c/o pain , will add Ultram trial dose to scheduled APAP Patient is not a candidate for systemic NSAIDs (2) Paraspinal abscess: Assessment and plan: Back pain and tenderness in the setting of persistent MRSA bacteremia resulting in recommendations to continue IV antibiotics as the fluid collection is too small to be drained by IR. Plan to continue vancomycin as 01/06/2024 blood cultures are negative. PELVIC MRI IMPRESSION: Findings consistent with myositis of the left quadratus lumborum muscle. Small fluid collection versus abscess posterior to the left L4-5 facet joint measuring 2 x 0.7 x 0.9 cm. Abnormal signal with enhancement in the L 3 inferior endplate and a portion of the L4 vertebral body which could represent osteomyelitis versus degenerative changes. No significant disc enhancement. Splenomegaly also present. CONS[place] 01/06/2024: [place] [place] as per Dr. Chawla Ray is to consult IR for drainage ,and for osteomyelitis- IV antibiotics since the patient is neurologically intact. [place] [facility] [place] Consultation with Dr. Garnett for IR drainage: Fluid collection is too small, keep on Vancomycin Lab contacted to get the BARRY on 01/06 : BARRY < 0.5 - meaning no resistance Repeat MRI in 5 to 7 days but sooner if the patient develops neurological compromise (3) History of incision and drainage: Status: Acute Assessment and plan: right great toe follow by podiatry in [place] no pain or c/o, Dressing removed yesterday: foul smelling with grayish-yellow pus and copious serosanguinous drainage Podiatry consult initiated and ongoing: please read Dr. Mccann's notes -On vancomycin for wound culture growing MRSA - No osteomyelitis per XR Dr. Mccann will follow the patient every week as an outpatient. Recommending home health for dressing change Saturday with Betadine and sterile dry gauze. (4) Pleural effusion due to CHF (congestive heart failure): Status: Acute Assessment and plan: respiratory status stable, responded well to diuresis No resumption of IV diuretic after stopping for worsening kidney function Resuming home dose diuretics as Cr improves to 2.3 today Hold Losartan; this systolic blood pressures 100s to 110's (5) HFrEF (heart failure with reduced ejection fraction): Status: Chronic Assessment and plan: Initially on IV diuretic Resuming oral lasix on 01/08 as Cr is improving Continue GDMT with Coreg, jardiance, losartan held d/t GUY Continue close monitoring of I&O, daily weights, and monitoring of kidney functions and electrolytes, Followed by Dr Cruz: OPT referral on discharge Updated echocardiogram: Conclusion Dilated left ventricle with reduced systolic function. 25 to 30%. There is global hypokinesis Right ventricle is moderately enlarged Right atrium is mildly enlarged. Left atrium is moderately dilated Aortic valve is probably trileaflet and sclerotic. There is mild aortic stenosis. Peak gradient is 33, mean 19 mmHg. There is mild aortic regurgitation Estimated right ventricular systolic pressure is 36 mmHg (6) Elevated troponin level not due myocardial infarction: Status: Acute Assessment and plan: Resolved and the patient remains symptoms free Most likely chronic in setting of CKD Heart failure and remote elevation in July 2022 with acute event. no further trending of troponin unless becomes symptomatic. (7) Aortic stenosis: Status: Chronic Assessment and plan: Known cardiac murmur in the setting of MRSA bacteremia echo cardiogram was completed and no vegetation was reported As per per echocardiogram report Aortic valve is probably trileaflet and sclerotic. There is mild aortic stenosis. Peak gradient is 33, mean 19 mmHg. There is mild aortic regurgitation No signs and symptoms of decompensation Qualifiers: Cardiac valve disease etiology: nonrheumatic Qualified Code(s): I35.0 - Nonrheumatic aortic (valve) stenosis (8) Anemia due to stage 3 chronic kidney disease: Status: Chronic Assessment and plan: Remains stable CBC in AM Qualifiers: Chronic kidney disease stage 3 subtype: stage 3b (GFR 30-44) Qualified Code(s): N18.32 - Chronic kidney disease, stage 3b; D63.1 - Anemia in chronic kidney disease (9) Thrombocytopenia: Status: Chronic Assessment and plan: Platelets are still above 70 w/o acute bleeding Continue SCDs for DVT prophylaxis If a DVT is Dx to the RLE , patient may be a candidate for Eliquis. He is at high risk for DVT with his obesity, chronic illness and immobility with chronic edema of the right leg. (10) Acute kidney injury superimposed on chronic kidney disease: Status: Acute Assessment and plan: On admission patient was CKD stage IV IV diuretic initiated for CHF presentation with rising creatinine level noticed IV diuretics were stopped but creatinine was still rising Today Cr down to 2.7 from 2.9/ BUN from 99 to 108, ratio is now 40 from 34 Resuming home oral diuretic with improvement of renal function BMP in AM avoid nephrotoxic drugs, renal dosing as appropriate. Discussed with Dr. Correa Subjective Subjective Patient reports: no new complaints, feels better, tolerating liquids well, tolerating a regular diet, voiding w/o difficulty, flatus and bowel movement; denies diarrhea, blood in stool, nausea, vomiting, shortness of breath or fever Exam Narrative Exam Narrative: Constitutional The patient is lying in bed sitting in chair, comfortable and cooperative during the interview, spouse at bedside . The patient is without acute distress HENMT: Facial structures with normal appearance Neuro:alert and oriented to self, person, place time and situation. No neurological focal deficit. No cauda equina finding on exam Resp: Normal respiratory pattern, speaks in full sentences, unlabored breathing, clear lung bilaterally w decreased bases Cardio: regular rhythm, S1, S2, + murmur ( known), LE edema R>L GI: Abdomen is not distended, soft and non tender, bowel sounds are present : Negative Costovertebral angle tenderness Back/spine/Pelvis: lumbo-sacral right sided tenderness, normal alignment Integumentary: right LE : first toe s/p surgeryPTA, stutures taken out by poddressing by podaitry DCI Psych: RASS 0, congruent mood and normal affect. Objective Last Vital Signs Temp 36.3 C L 01/08/24 11:17 Pulse 63 01/08/24 11:17 Resp 17 01/08/24 11:17 BP 114/59 L 01/08/24 11:17 Pulse Ox 100 01/08/24 11:17 Laboratory Results - last 24 hr 01/08/24 01/08/24 05:30 10:25 WBC 2.85 L RBC 3.10 L Hgb 9.7 L Hct 30.8 L MCV 99 H MCH 31.3 MCHC 31.5 L RDW 16.6 H Plt Count 72 L MPV 12.2 H Immature Gran % 0.4 Neutrophils % 56.4 Lymphocytes % 14.4 Monocytes % 15.8 Eosinophils % 11.6 Basophils % 1.4 Nucleated RBC % 0.0 Absolute Neutrophils 1.61 Absolute Lymphocytes 0.41 L Absolute Monocytes 0.45 Absolute Eosinophils 0.33 Absolute Basophils 0.04 Sodium 135 L Potassium 4.9 Chloride 102 Carbon Dioxide 24.3 Anion Gap 8.7 BUN 113 H* Creatinine 2.3 H Est GFR (CKD-EPI 2020) 30.74 Glucose 152 H Calcium 8.8 Total Bilirubin 0.58 Conjugated Bilirubin 0.2 AST 54 H ALT 36 Alkaline Phosphatase 187 H Total Protein 8.0 Albumin 2.2 L Random Vancomycin 17.5 Time Spent with Patient Time Spent with Patient: >50 minutes Time was spent: preparing to see the patient(eg.review tests), obtaining and/or reviewing separately otained hiistory, ordering medications,tests, procedures, referring, communicating with other health emergency care attendant, indepentently interpreting results, counseling the patient and care coordination
[2024-01-08 15:55] VITALS: BP 108/56; PULSE 65; RESP 18; TEMP 36.4; O2SAT 100
[2024-01-08] MEDS: traMADol 50 MG TAB PO (16:00)
[2024-01-08] MEDS: Normal Saline 1,000 ML 125 ML IV (16:00)
[2024-01-08 19:14] VITALS: BP 120/69; PULSE 72; RESP 18; TEMP 36.6; O2SAT 98
[2024-01-08] MEDS: Lidocaine Patch Removal 1 EACH TP (20:05)
[2024-01-08 23:43] VITALS: BP 121/64; PULSE 67; RESP 18; TEMP 36.5; O2SAT 98
[2024-01-09 03:18] VITALS: BP 121/61; PULSE 64; RESP 18; TEMP 36.5; O2SAT 97
[2024-01-09 06:14] LABS: Abs Immature Grans 0.01 10^3/uL (0.0-0.06); Absolute Basophil Count 0.05 10^3/uL (0.0-0.2); Absolute Eosinophil Count 0.34 10^3/uL (0.0-0.7); Absolute Lymphocyte Count 0.38 10^3/uL (1.2-3.4); Absolute Monocyte Count 0.43 10^3/uL (0.1-0.8); Absolute Neutrophil Count 1.71 10^3/uL (1.2-6.7); Basophils % 1.7 %; Eosinophils % 11.6 %; HCT 30.2 % (40.0-50.0); HGB 9.7 g/dL (13.5-17.5); Immature Grans % 0.3 %; MCH 31.7 pg (27.0-33.0); MCHC 32.1 % (32.0-36.0); MCV 99 fL (80-95); MPV 11.7 fL (8.0-11.0); Monocytes % 14.7 %; Neutrophils % 58.7 %; RBC 3.06 10^6/uL (4.36-5.78); RDW 16.8 % (11.8-14.1); RDW-SD 60.9 fL; WBC 2.92 10^3/uL (4.4-10.8)
[2024-01-09 06:27] LABS: Anion Gap 7.9 mmol/L (3-11); CO2 24.1 mmol/L (21.0-32.0); CREATININE 2.3 mg/dL (0.70-1.30); Calcium 8.6 mg/dL (8.5-10.1); Chloride 108 mmol/L (98-107); Estimated GFR 30.74 (mL/min/1.73m2); Glucose 152 mg/dL (74-106); Sodium 140 mmol/L (136-145)
[2024-01-09 06:35] LABS: BUN 108 mg/dL (7-18)
[2024-01-09 06:44] LABS: Platelet Count 75 10^3/uL (130-400)
[2024-01-09 06:45] LABS: Diff Comment Diff Reviewed; RBC Morphology Normal
[2024-01-09 07:09] VITALS: BP 115/51; PULSE 66; RESP 18; TEMP 35.7; O2SAT 99
[2024-01-09] MEDS: Magnesium Oxide 400 MG TAB PO (07:35)
[2024-01-09] MEDS: Carvedilol 12.5 MG TAB PO (07:35)
[2024-01-09] MEDS: Multivitamin TAB 1 TAB PO (07:35)
[2024-01-09] MEDS: Docusate Sodium 100 MG CAP PO ×2 (07:35→11:20)
[2024-01-09] MEDS: Benzonatate 100 MG CAP PO ×2 (07:36→13:19)
[2024-01-09] MEDS: Aspirin E.C. 81 MG TABEC PO (07:36)
[2024-01-09] MEDS: Methocarbamol 500 MG TAB PO (07:36)
[2024-01-09] MEDS: Allopurinol 100 MG TAB 400 MG PO (07:36)
[2024-01-09] MEDS: Insulin Aspart 300 UNITS/3 ML PEN SC ×2 (07:36→11:21)
[2024-01-09] MEDS: Empaglifozin 10 MG TAB PO (07:36)
[2024-01-09] MEDS: Lactobacillus Acidophilus CAP 1 CAP PO ×2 (07:36→13:19)
[2024-01-09] MEDS: Diclofenac 1% Gel 100 GM TUBE TP ×2 (07:37→11:21)
[2024-01-09] MEDS: Normal Saline Flush 10 ML SYR IVP (07:37)
--- NOTE | 2024-01-09 08:23 | IN_ITS ---
PT Notes Visit Reasons: CHF exacerbation with pleural effusions Inpatient Physical Therapy Evaluation Date: 01/09/24 Referring Doctor: Yessy Bello NP PT Orders: PT CONSULT: safety consult for d/c Precautions: contact Patient Profile/Admitting Diagnosis: Patient with h/o autoimmune myopathy admitted for medical management of bacteremia, paraspinal abcess, right great toe infection (s/p incision and drainage) and pleural effusion due to CHF. He has a tentative plan to discharge home with infusion therapy, and PT consult requested to assess safety for discharge. Social History/Home Situation: Resides in a private home with his . Ramp to enter. Stairs only to basement, which he can typically manage independently. Typically ambulates independently, although has cane, 4WW, FWW, and scooter, each of which he uses as needed. 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 Drives independently. Equipment Owned/DME: cane, 4WW, FWW, and scooter Subjective: Bucky states that he is feeling ready to go home. He continues to have pain transitioning from sitting to standing, but once he's up, feels pretty good. He has been walking around his room on his own with 4WW, and feels confident that he can manage at home. Objective: General Observation: Resting in chair at initiation of session. Mental Status: A&Ox3. Pleasant and cooperative. Pain: back and left knee ROM: Right Upper Extremity: WFL Left Upper Extremity: WFL Right Lower Extremity: WFL Left Lower Extremity: Grossly WFL. Pain in knee flexion, which he actively demonstrates from 0-100*. Strength: Right Upper Extremity: Shoulder flexion 3/5 or greater. Biceps 4/5. Triceps 4/5. Adjunct Art History Instructor is strong and equal. Left Upper Extremity: Shoulder flexion 3/5 or greater. Biceps 4/5. Triceps 4/5. Adjunct Art History Instructor is strong and equal. Right Lower Extremity: Hip flexion 4/5. Quads 5/5. Ankle DF 3/5 or greater. Left Lower Extremity: Hip flexion 3/5. Quads 4/5. Ankle DF 5/5. Bed Mobility/Transfers: sit-stand: independent stand-sit: independent Gait: Ambulates 30' with 4WW, right post-op shoe, independently. ADLs: Requires mod A for donning right shoe. Reports is able to assist at home. Balance: Static Sitting: normal Dynamic Sitting: normal Static Standing: good Dynamic Standing: fair Special Tests: Mobility Limitations Standardized Measure [facility] AM-PAC 6 clicks Basic Mobility Inpatient Short Form: Raw Score: 23 CMS Score: 11% impairment Informed Consent/Education: Patient instructed in purpose of PT consult and plan of care. Assessment: Patient is a 63 year old male referred to physical therapy services for safety consultation for discharge planning. Patient presents with acute on chronic mobility impairments, largely related to pain. He demonstrates good saf ety awareness, and has historically modified his use of assistive device based on current needs. He has several options at home, and demonstrates good safety with use of 4WW today. Anticipate he'll continue to improve as his pain reduces. He tolerated PT evaluation well and demonstrated good safety and independence. AM-PAC scores support return to community. He is appropriate for discharge home with family assistance once medically appropriate. No further PT intervention required in acute care setting. He currently demonstrates the following impairment level findings: 1. Decreased activity tolerance 2. pain related to myositis 3. decreased dynamic balance Impairments are contributing to the following functional limitations: 1. Unable to safely ambulate without assistive device Patient is assessed as Low 62046 complexity based on the following: History: As above Examination: functional limitations as above Presentation: evolving due to acute medical issues Decision Making: low complexity Plan of Care/Treatment Plan: One time visit only for safety consultation. 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 Patient receives IVIG over 2 days every 4 weeks. 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 Baseline is around 70,000 Acute on chronic renal insufficiency (Acute) Lower extremity cellulitis (Acute) Renal insufficiency (Chronic) Impacted cerumen of both ears (Acute) HTN (hypertension) (Chronic) Cirrhosis of liver (Chronic) Subclavian vein thrombosis (Acute) Myopathy (Acute) Barretts esophagus (Acute) Hearing deficit (Acute) Epistaxis (Acute) Chronic anemia (Chronic) Per Dr. Melendez due to iron deficiency. Venofer 300mg every 3months. Cannot follow ferritin due to myopathy causing nonspecific inflammation. Normal hemoglobin is around 10 Edema (Acute) Heart murmur, systolic (Acute) CALDERON (dyspnea on exertion) (Acute) Diastolic dysfunction (Acute) Excess ear wax (Acute) Weakness of both legs (Acute) Nocturnal cough (Acute) Medication monitoring encounter (Acute) Skin cancer, basal cell (Acute) face Elevated troponin (Acute) Medical History Hyperlipidemia Other pancytopenia History of shingles Nonalcoholic steatohepatitis History of deep vein thrombosis Anemia Hypomagnesemia Diabetic ulcer of right foot Acute non-ST segment elevation myocardial infarction Sepsis Vasculitis Obesity Basal cell carcinoma, face Duodenitis Pancytopenia Shingles DVT (deep venous thrombosis) Pulmonary embolism Gout NSTEMI (non-ST elevated myocardial infarction) Chronic kidney disease Cardiomyopathy MYOPATHY DUE TO DRUGS Hypercholesterolemia Diabetes mellitus Inclusion body myositis Kidney stone Essential hypertension Surgical History History of colonoscopy POWER PORT MUSCLE BIOPSY LITHOTRIPSY Repair of umbilical hernia EGD - MAC (~2009) Colonoscopy - MAC (~2009)
[2024-01-09] MEDS: Lidocaine 5% Patch 1 PATCH TP (09:32)
--- NOTE | 2024-01-09 10:34 | PDOC.CMDIS ---
Date of service: 01/09/24 Time of Service: 13:30 LACE Index Scoring Tool Questions: Length of Stay (in days): 7 - 13 Was the patient admitted via the E.D.?: Yes Comorbidities: Previous M.I., Congestive Heart Failure and Liver or Renal Disease E.D. Visits: 0 Answers: Total Score: 13 Risk of Readmission: High Risk Care Management Discharge Plan Reason for Hospitalization: CHF, bacteremia Discharge Plan: Bucky will return home today with new orders for HH RN for wound care/dressing changes M/W/F. He will go to the [facility] infusion room daily for his IV antibiotic therapy, which is his preference, as he stated he has been coming to the [facility] infusion room since 2010. He will follow up with his PCP, podiatry, and his discharge plan of care. He is happy to be going home. Patient/Family Education Needs: Review discharge instructions and limitations, discussion of self care needs including ask me three. Services Needed at Discharge: Home Health Care Services ([facility]; NICHOLAS left message) and Infusion Therapy (daily IV abx infusion at [facility] infusion room) SDOH Health Related Social Needs: No Data to Display
[2024-01-09] MEDS: Furosemide 40 MG TAB PO (10:36)
--- NOTE | 2024-01-09 10:46 | W.NUTRFU ---
Date of service: 01/08/24 Time of Service: 13:40 Nutrition Note NOTE: Visited Bucky yesterday to assess for diabetes education need. Patient was admitted with GUY superimposed on CKD3b, MRSA bacteremia with a hx of CHF, HTN, Cirrhosis, Barretts esophagus, chronic anemia, and DMII with insulin use. PT states takes jardiance at home with 14 units of lantus AM (which is a recent reduction according to pt due to experiencing lows) and pt also take insulin lispro at 20units daily total at meals. does majority of shopping and cooking - Bucky states he is very picky eater and will often make his own meals. Diet recall offered by pt : usually has a slim fast for breakfast and will then not eat again until ~2pm and gives example of frozen fried fish and dinner will vary - if he doesn't like what his makes he may make himself a tuna sandwich. He uses LibreII CGM and finds it accurate when compared to capillary checks. States his last A1c was 6.2% and fasting glucose lately runs 110-160. Reviewed diet order for HH/CHO consistent. He states he has met with dietitians in the past and feels confident in idendifying and counting carbs. Pt declined education at this time but did take my card incase he becomes interested in outpatient support with meal planning for he and his on carbs, potassium/sodium/phos in diet for CKD mgt Encouraged more plant protein choices for bucky and aiming for 25 grams of fiber minimum daily. Will monitor need for further education prior to discharge Time Spent in Nutritional Counseling and Treatment: 10 min
[2024-01-09 11:03] VITALS: BP 120/55; PULSE 65; RESP 18; TEMP 36; O2SAT 100
--- NOTE | 2024-01-09 12:42 | PDOC.HHF2F ---
Home Health Referral Home Health Orders Clinical synopsis of why skilled professionals are needed: This 63 years old male patient with a past medical history of aortic stenosis, heart failure with reduced ejection fraction LVEF 30% and on GDMT and furosemide, non-ST elevation myocardial infarction, DVT, chronic kidney disease stage III, hypertension, liver cirrhosis, diabetes on insulin therapy, right fourth toe ulcer with recent surgical procedure, IVIG infusions via right chest port presented to the ED at [facility] on 01/02/2024 for evaluation of dyspnea on exertion and baseline shortness of breath which started approximately 3 days prior to presentation. The patient reported that symptoms have worsened in the past day with a gain of 5 pounds current. Patient was directed to the emergency service after seen his PCP today due to his symptoms.Physical findings in the ED revealed no significant respiratory distress, cardiac murmur, positive distal pulses to all 4 extremities with venous stasis right lower extremity and 3+ edema to bilateral lower extremities. Significant labs in the emergency room were H&H 10.7 and 34 from baseline, platelets 61, BUN 76 and creatinine 2.2 around baseline with a GFR of 36, AST 55 with alk phos 179 , initial troponins elevated at 198 and 126, BNP of 2 6641. Blood cultures were drawn and pending. Chest CT was remarkable for findings of moderate right pulmonary and small left pleural effusions and atelectasis; cholelithiasis and splenomegaly seen. The hopsitalist was consulted and the patient was admitted to the medical surgical floor for congestive heart failure with elevated troponins. In the Ed the patient received IV lasix. During the stay, treatment with IV lasix 40 mg IV BID was stopped due to increased BUN and creatinine. Oral lasix was resumed as Cr improved in the setting of GUY on CKD. Losartan was held and allopurinol dose adjusted. Losartan resumed as creatinine improve with followup BMP with results to PCP upon discharge. Blood cultures showed MRSA sensitive to vancomycin with the BARRY of less than 0.5. Repeated blood cultures were negative on the 01/06/2024 and the patient will need IV vancomycin until 02/17/2024. The patient elected to get outpatient infusion at [facility] were already was getting medicines including IVIG . The primary care practitioner will follow-up on outpatient infusion regimen; pharmacy consult also ordered to maintain levels between 15-20. Echocardiogram ultrasound was completed with LVEF of 25 to 30% with global hypokinesis; most likely 3 trileaflet aortic calcified valve with mild stenosis and mild aortic regurgitation. Mild mitral, pulmonic and tricuspid regurgitation also mentioned. Patient developed left calf pain on day 3 of admission and x-ray showed mild degenerative changes without effusion. Orthopedic consult was completed and no intervention recommended at the time. At home the patient is on allopurinol and colchicine with normal uric acid level during this admission. Pelvic MRI was completed for lower back pain with findings of myositis of the left quadratus lumborum muscle,small fluid collection versus abscess posterior to the left L4-5 facet joint measuring 2 x 0.7 x 0.9 cm. Report also showed abnormal signal with enhancement in the L 3 inferior endplate and a portion of the L4 vertebral body which could represent osteomyelitis versus degenerative changes without significant disc enhancement. CONSULTS with [facility] on 01/06/2024: -[facility] spinal surgery recommendation as per Dr. Cammy Copeland is to consult IR for drainage and for osteomyelitis- IV antibiotics since the patient is neurologically intact. - [facility] IR: Consultation with Dr. Richard Garnett for IR drainage: Fluid collection is too small, continue Vancomycin -Repeat MRI in 5 to 7 days but sooner if the patient develops neurological compromise. The patient was neurologically at baseline without signs and symptoms of cauda equina. Dressing on the right foot revealed a purulent wound with copious serosanguineous drainage and malodor. Podiatry was consulted and an x-ray was completed showing no osteomyelitis. Cultures also grew MRSA. Dr. Mccann will follow the patient every week as an outpatient and is recommending home health for dressing change Saturday with Betadine and sterile dry gauze via Home Health nursing. The right chest port was removed by surgery with recommendation for suture removal within 5 to 7 days. Catheter tip grew MRSA and rare grew of other Staphylococcus species with sensitivities pending and to be followed up by primary care practitioner. Attempted PICC line insertion on 01/07/2024 failed due to bilateral subclavian stenosis; Chest x-ray at that time showed no pneumothorax or pleural effusion. Nutrition consult was completed with recommendation for more plant protein choices aiming to 25 g of fiber minimally a day; the patient refused education at the time but seems interested in outpatient support with meal planning as he took the card issued by Abundio Ambrosio registered dietitian. In the stay the patient was on sliding scale insulin with blood sugar monitoring before meals and at bedtime.The patient took on average 10 to 16 units of lispro per 24-hour and his home Lantus dose will be reduced to 12 units/day from the listed 20 units/day. Dietary consult also mention that the patient was on a lesser dose than listed in the notes. The patient follow-up with his primary care practitioner within 7 days of discharge. Oupatient BMP ordered. Findings of gallstones on CT might warrant GI consult outpatient as referred by the primary care practitioner. Elevated MRI of the pelvis that would include L4 was ordered to evaluate for previous finding with follow-up as per primary care practitioner for [facility] referral if needed.The patient will have a follow-up with cardiology and podiatry as well. Physical therapy evaluation did not recommend home health PT but the patient will need home health nursing for suture removal s/p right chest port excision on January 12, as well as right foot dressing change with Betadine and sterile dry gauze on Wednesdays and Fridays. The patient will need a midline catheter change 4 weeks from 01/05/2024. Registered Nurse: Check all that apply Assess for exacerbation of medical condition, instruct patient/caregivers on signs and symptoms to report for early detection: Ordered Assess wound for signs and symptoms of infection, instruct on wound care and/or provide skilled wound care consisting of: The patient follow-up with his primary care practitioner within 7 days of discharge. Outpatient BMP ordered. The patient will have a follow-up with cardiology and podiatry as well. The patient will need home health nursing for suture removal s/p right chest port excision completed at [facility] on January 12, as well as right foot dressing change with Betadine and sterile dry gauze on Wednesdays and Fridays. Other: The patient follow-up with his primary care practitioner within 7 days of discharge. Outpatient BMP ordered. Findings of gallstones on CT might warrant GI consult outpatient as referred by the primary care practitioner. Elevated MRI of the pelvis that would include L4 was ordered to evaluate for previous finding with follow-up as per primary care practitioner for [facility] referral if needed. The patient will have a follow-up with cardiology and podiatry as well. Physical therapy evaluation did not recommend home health PT but the patient will need home health nursing for suture removal s/p right chest port excision on January 12, as well as right foot dressing change with Betadine and sterile dry gauze on Wednesdays and Fridays. Encounter Date and Reason: I certify that a FTF encounter for this patient was performed on January 09, 2024 and that such encounter was related to the primary reason the patient requires home health services. The encounter was conducted in the following manner: By me as the certifying physician, HEAD START ASSISTANT TEACHER, PA or By an inpatient physician, HEAD START ASSISTANT TEACHER or PA during an inpatient stay who communicated findings to me, Certification And Authentication I certify that I composed the above information based on my clinical judgment relating to this patient's medical condition and, if applicable, clinical findings communicated to me by the NPP or inpatient physician who performed the FTF encounter. Name of Provider that will be monitoring home health services: Jazmine Baer
--- NOTE | 2024-01-09 12:52 | W.PM.DS.N ---
Date of service: 01/09/24 Time of Service: 09:20 DS: Diagnosis Discharge Diagnosis (1) Bacteremia: Status: Acute (2) Paraspinal abscess: (3) History of incision and drainage: Status: Acute (4) Pleural effusion due to CHF (congestive heart failure): Status: Acute (5) HFrEF (heart failure with reduced ejection fraction): Status: Chronic (6) Elevated troponin level not due myocardial infarction: Status: Acute (7) Aortic stenosis: Status: Chronic (8) Anemia due to stage 3 chronic kidney disease: Status: Chronic (9) Thrombocytopenia: Status: Chronic (10) Acute kidney injury superimposed on chronic kidney disease: Status: Acute Discharge Plan Disposition Patient Disposition: Home W/Home Health Services Condition: Improving Discharge Details Reason For Visit: CHF exacerbation with pleural effusions Admit Date/Time: 01/02/24 23:13 Admit Provider: Chris Espana Attending Provider: Chris Espana Primary Care Provider: Jazmine Baer V Hospital Course Hospital Course: This 63 years old male patient with a past medical history of aortic stenosis, heart failure with reduced ejection fraction LVEF 30% and on GDMT and furosemide, non-ST elevation myocardial infarction, DVT, chronic kidney disease stage III, hypertension, liver cirrhosis, diabetes on insulin therapy, right fourth toe ulcer with recent surgical procedure, IVIG infusions via right chest port presented to the ED at [facility] on 01/02/2024 for evaluation of dyspnea on exertion and baseline shortness of breath which started approximately 3 days prior to presentation. The patient reported that symptoms have worsened in the past day with a gain of 5 pounds current. Patient was directed to the emergency service after seen his PCP today due to his symptoms.Physical findings in the ED revealed no significant respiratory distress, cardiac murmur, positive distal pulses to all 4 extremities with venous stasis right lower extremity and 3+ edema to bilateral lower extremities. Significant labs in the emergency room were H&H 10.7 and 34 from baseline, platelets 61, BUN 76 and creatinine 2.2 around baseline with a GFR of 36, AST 55 with alk phos 179 , initial troponins elevated at 198 and 126, BNP of 2 6641. Blood cultures were drawn and pending. Chest CT was remarkable for findings of moderate right pulmonary and small left pleural effusions and atelectasis; cholelithiasis and splenomegaly seen. The hopsitalist was consulted and the patient was admitted to the medical surgical floor for congestive heart failure with elevated troponins. In the Ed the patient received IV lasix. During the stay, treatment with IV lasix 40 mg IV BID was stopped due to increased BUN and creatinine. Oral lasix was resumed as Cr improved in the setting of GUY on CKD. Losartan was held and allopurinol dose adjusted. Losartan resumed as creatinine improve with followup BMP with results to PCP upon discharge. Blood cultures showed MRSA sensitive to vancomycin with the BARRY of less than 0.5. Repeated blood cultures were negative on the 01/06/2024 and the patient will need IV vancomycin until 02/17/2024. The patient elected to get outpatient infusion at [facility] were already was getting medicines including IVIG . The primary care practitioner will follow-up on outpatient infusion regimen; pharmacy consult also ordered to maintain levels between 15-20. Echocardiogram ultrasound was completed with LVEF of 25 to 30% with global hypokinesis; most likely 3 trileaflet aortic calcified valve with mild stenosis and mild aortic regurgitation. Mild mitral, pulmonic and tricuspid regurgitation also mentioned. Patient developed left calf pain on day 3 of admission and x-ray showed mild degenerative changes without effusion. Orthopedic consult was completed and no intervention recommended at the time. At home the patient is on allopurinol and colchicine with normal uric acid level during this admission. Pelvic MRI was completed for lower back pain with findings of myositis of the left quadratus lumborum muscle,small fluid collection versus abscess posterior to the left L4-5 facet joint measuring 2 x 0.7 x 0.9 cm. Report also showed abnormal signal with enhancement in the L 3 inferior endplate and a portion of the L4 vertebral body which could represent osteomyelitis versus degenerative changes without significant disc enhancement. CONSULTS with [facility] on 01/06/2024: -[facility] spinal surgery recommendation as per Dr. Cammy Copeland is to consult IR for drainage and for osteomyelitis- IV antibiotics since the patient is neurologically intact. - [facility] IR: Consultation with Dr. Richard Garnett for IR drainage: Fluid collection is too small, continue Vancomycin -Repeat MRI in 5 to 7 days but sooner if the patient develops neurological compromise. The patient was neurologically at baseline without signs and symptoms of cauda equina. Dressing on the right foot revealed a purulent wound with copious serosanguineous drainage and malodor. Podiatry was consulted and an x-ray was completed showing no osteomyelitis. Cultures also grew MRSA. Dr. Mccann will follow the patient every week as an outpatient and is recommending home health for dressing change Saturday with Betadine and sterile dry gauze via Home Health nursing. The right chest port was removed by surgery with recommendation for suture removal within 5 to 7 days. Catheter tip grew MRSA and rare grew of other Staphylococcus species with sensitivities pending and to be followed up by primary care practitioner. Attempted PICC line insertion on 01/07/2024 failed due to bilateral subclavian stenosis; Chest x-ray at that time showed no pneumothorax or pleural effusion. Nutrition consult was completed with recommendation for more plant protein choices aiming to 25 g of fiber minimally a day; the patient refused education at the time but seems interested in outpatient support with meal planning as he took the card issued by Abundio Ambrosio registered dietitian. In the stay the patient was on sliding scale insulin with blood sugar monitoring before meals and at bedtime.The patient took on average 10 to 16 units of lispro per 24-hour and his home Lantus dose will be reduced to 12 units/day from the listed 20 units/day. Dietary consult also mention that the patient was on a lesser dose than listed in the notes. Chronic anemia and thrombocytopenia remain stable during the stay.Pain management for lower back pain resulted in short course low dose PRN tramadol at discharge with further therapy as PCP; scheduled APA, lidocaine patches were not effective. The patient follow-up with his primary care practitioner within 7 days of discharge. Findings of gallstones on CT might warrant GI consult outpatient as referred by the primary care practitioner. Elevated MRI of the pelvis that would include L4 was ordered to evaluate for previous finding with follow-up as per primary care practitioner for [facility] referral if needed.The patient will have a follow-up with cardiology and podiatry as well. Physical therapy evaluation did not recommend home health PT but the patient will need home health nursing for suture removal s/p excision of right chest port completed at [facility], on Saturday, January 12 as well as right foot dressing change with Betadine and sterile dry gauze on Wednesdays and Fridays. The patient will need a midline catheter change at 4 weeks of the insertion date of 01/05/2024. Discussed with Dr. Correa Home Meds and New Rx's Prescriptions: New tramadol 25 mg tablet 25 mg PO Q8H PRN PRNQty: 15 0RF diclofenac sodium 3 % Gel 100 g topical QID Qty: 100 0RF Rx Instructions: to left knee docusate sodium [Colace] 100 mg Capsule 100 mg PO TID Qty: 90 0RF Lactobacillus acidophilus 500 million cell Capsule 500 mmu cells PO TID Qty: 120 0RF polyethylene glycol 3350 17 gram Powder In Packet 17 g PO DAILY Qty: 30 0RF Continued Aranesp (in polysorbate) 60 mcg/mL solution 60 mcg IV Q2W PRN Patient Comments: Through [facility] Outpatient Infusion Venofer 200 mg iron/10 mL solution 300 mg IV .12 weeks PRN Patient Comments: Through [facility] Outpatient Infusion Rx Instructions: administer over 30 mins Maud Saline Gel 1 applic topical QID PRN Rx Instructions: while awake Jardiance 10 mg tablet 10 mg PO DAILY carvedilol 12.5 mg tablet 12.5 mg PO BID Qty: 180 3RF Rx Instructions: must administer with a meal/food Lyumjev KwikPen U-100 Insulin 100 unit/mL insulin pen 20 unit subcut QACLUNCH GAMAGUARD IVIG See Rx Instructions .ROUTE .COMPLEX Rx Instructions: Patient seen at [facility] for IVIG infusions 2x a month ondansetron [Zofran ODT] 4 mg tablet,disintegrating 4 mg PO BID PRN (DME) blood-glucose meter Kit See Rx Instructions .Route Rx Instructions: As directed colchicine 0.6 mg tablet 0.6 mg PO DIRECTED sodium chloride 0.9 % (flush) Syringe 10 ml IV QWEEK (DME) IV infusion pump accessory Infusion Set See Rx Instructions .Route Rx Instructions: As directed Repatha Syringe 140 mg/mL syringe 140 mg subcut Q2W Qty: 6 5RF multivitamin [Daily Multi-Vitamin] 1 EACH tablet 1 tab PO DAILY aspirin 81 mg Tablet,Delayed Release (Dr/Ec) 81 mg PO DAILY Qty: 100 0RF magnesium oxide 400 mg (241.3 mg magnesium) Tablet 400 mg PO BID Qty: 60 1RF nitroglycerin 0.4 mg tablet, sublingual 0.4 mg sublingual Q5-15M PRNQty: 30 0RF Rx Instructions: do not exceed 3 doses per episode losartan 50 mg tablet 75 mg PO DAILY furosemide 40 mg tablet 40 mg PO DAILY Changed allopurinol 100 mg tablet 200 mg PO DAILY Qty: 0 0RF insulin glargine [Lantus Solostar U-100 Insulin] 100 unit/mL (3 mL) insulin pen 12 unit subcut DAILY Qty: 0 0RF Patient Comments: 01/16/23 per PCP med record states Per [facility] 07/24/22 RH Discharge Instructions Instructions: Heart failure Stand Alone Forms: Nursing Discharge Form Referrals: Jazmine Baer MD [Primary Care Provider] - 01/15/24 12:30 pm Fiona Cruz MD [ [facility] STAFF PHYSICIAN] - (The office will call you to make a follow up appt within a week. If you do not hear from them by tomorrow call the office. ) Adore Mccann DPM [[facility] STAFF PHYSICIAN] - (Office will call you with follow up appointment. If you do not hear from them please call to set up appointment.) Activity:: Activity as Tolerated Equipment/Supplies:: Walker Diet:: diabetic heart healthy Discharge Orders Discharge Orders: Discharge Order (Routine); Ordered 01/09/24 Ordered By: Yessy Bello Other Ambulatory Orders: Basic Metabolic Panel (Routine) Timeframe: 20240112 Facility: [facility] - Location: Laboratory Outpatient - [facility] Ordered By: Yessy Bello MR pelvis wo/w (Routine) Timeframe: 20240114 Facility: [facility] - Location: DIAGNOSTIC IMAGING DEPT Ordered By: Yessy Bello DS: Summary Time Spent with Patient providing and/or coordinating discharge services: Greater than 30 minutes Status at Discharge Functional status at discharge: uses cane/walker Overall status at discharge: patient is progressing back to baseline Mental Status: mental status grossly normal Speech and Movement: speech and movement normal Mood: congruent mood Affect: normal affect Quality:SDOH Health Related Social Needs: No Data to Display Exam Narrative Exam Narrative: Constitutional The patient is l sitting in chair, comfortable The patient is without acute distress HENMT: Facial structures with normal appearance Neuro:alert and oriented to self, person, place time and situation. No neurological focal deficit. Baseline neuropathy again today. No cauda equina finding on exam from 01/07 Resp: Normal respiratory pattern, speaks in full sentences, unlabored breathing, clear lung bilaterally w decreased bases Cardio:Tele SR HR 88 with BBB, regular rhythm, S1, S2, + murmur ( known), LE edema R>L GI: Abdomen is not distended, soft and non tender, bowel sounds are present : Negative Costovertebral angle tenderness Back/spine/Pelvis: lumbo-sacral tenderness, normal alignment Integumentary: right LE : first toe s/p surgery [employer]IN[employer], stutures taken out by podiatry, dressing changed by RN DCI. Right chest sutures intact, no redness or drainage seen. Psych: RASS 0, congruent mood and normal affect. Psych Mental Status: mental status grossly normal Speech and Movement: speech and movement normal Mood: congruent mood Affect: normal affect DS: Data Vitals/I&O Vitals and I&O: Vital Signs Temperature 36.0 C L 01/09/24 11:03 Temperature Source Tympanic 01/09/24 11:03 Pulse 65 01/09/24 11:03 Pulse Rhythm Regular 01/09/24 09:16 Pulse 77 01/02/24 23:16 Respiratory Rate 18 01/09/24 11:03 Respiratory Effort Normal, Non-Labored 01/09/24 09:16 Respiratory Depth Normal 01/09/24 09:16 Respiratory Pattern Normal 01/09/24 09:16 Blood Pressure 120/55 L 01/09/24 11:03 Blood Pressure Mean 81 01/02/24 23:16 Blood Pressure Position Sitting 01/02/24 18:32 Pulse Oximetry 100 01/09/24 11:03 Oxygen Delivery Method Room Air 01/09/24 11:03 Oxygen Flow Rate 0 01/09/24 11:03 Pain Level 5 01/09/24 11:03 Comment Pain in knee- 10, Pain in back- 7. 01/07/24 07:44 Intake & Output 01/08/24 01/09/24 01/09/24 23:59 11:59 23:59 Intake Total 250 / 290 240 / 240 Output Total 400 / 800 200 / 200 Balance -150 / -510 40 / 40 Weight 119.2 kg Intake: IV 250 / 290 0 / 0 Oral 240 / 240 Output: Urine 400 / 800 200 / 200 Other: Urine Color Yellow Yellow Urine Appearance Clear Clear Stool Occult Blood Negative Stool Size Moderate Moderate Stool Characteristics Formed Soft Voiding Methods Urinal Toilet Data Completed and Pending Labs on day of discharge: Labs from last 24 hours 01/09/24 01/08/24 05:57 10:25 WBC 2.92 L RBC 3.06 L Hgb 9.7 L Hct 30.2 L MCV 99 H MCH 31.7 MCHC 32.1 RDW 16.8 H Plt Count 75 L MPV 11.7 H Immature Gran % 0.3 Neutrophils % 58.7 Lymphocytes % 13.0 Monocytes % 14.7 Eosinophils % 11.6 Basophils % 1.7 Nucleated RBC % 0.0 Absolute Neutrophils 1.71 Absolute Lymphocytes 0.38 L Absolute Monocytes 0.43 Absolute Eosinophils 0.34 Absolute Basophils 0.05 RBC Morphology Normal Sodium 140 Potassium 5.0 Chloride 108 H Carbon Dioxide 24.1 Anion Gap 7.9 BUN 108 H* Creatinine 2.3 H Est GFR (CKD-EPI 2020) 30.74 Glucose 152 H Calcium 8.6 Random Vancomycin 17.5 01/09/24 09:55 Stool Stool Occult Blood (BARRY) - Pending Preliminary micro results at discharge 01/07/24 12:00 Catheter Tip Culture - Preliminary Chest - Right Upper Staphylococcus Aureus Staph Sp., Not Aureus 01/06/24 15:45 Wound Culture - Preliminary Toe - Right Big Toe Staph aureus, MRSA 01/09/24 09:55 Stool Occult Blood (BARRY) - Pending Stool 01/04/24 15:15 Blood Culture - Preliminary Blood NO GROWTH 96 HOURS 01/06/24 13:25 Blood Culture - Preliminary Blood NO GROWTH 48 HOURS 01/06/24 13:25 Blood Culture - Preliminary Blood NO GROWTH 48 HOURS PFSH All Active Problems Acute kidney injury superimposed on chronic kidney disease (Acute) Abscess of muscle of back (Acute) Vascular device, implant, or graft infection or inflammation (Acute) MRSA bacteremia (Acute) 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 Patient receives IVIG over 2 days every 4 weeks. 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 Baseline is around 70,000 Acute on chronic renal insufficiency (Acute) Lower extremity cellulitis (Acute) Renal insufficiency (Chronic) Impacted cerumen of both ears (Acute) HTN (hypertension) (Chronic) Cirrhosis of liver (Chronic) Subclavian vein thrombosis (Acute) Myopathy (Acute) Barretts esophagus (Acute) Hearing deficit (Acute) Epistaxis (Acute) Chronic anemia (Chronic) Per Dr. Melendez due to iron deficiency. Venofer 300mg every 3months. Cannot follow ferritin due to myopathy causing nonspecific inflammation. Normal hemoglobin is around 10 Edema (Acute) Heart murmur, systolic (Acute) CALDERON (dyspnea on exertion) (Acute) Diastolic dysfunction (Acute) Excess ear wax (Acute) Weakness of both legs (Acute) Nocturnal cough (Acute) Medication monitoring encounter (Acute) Skin cancer, basal cell (Acute) face Elevated troponin (Acute) Medical History Hyperlipidemia Other pancytopenia History of shingles Nonalcoholic steatohepatitis History of deep vein thrombosis Anemia Hypomagnesemia Diabetic ulcer of right foot Acute non-ST segment elevation myocardial infarction Sepsis Vasculitis Obesity Basal cell carcinoma, face Duodenitis Pancytopenia Shingles DVT (deep venous thrombosis) Pulmonary embolism Gout NSTEMI (non-ST elevated myocardial infarction) Chronic kidney disease Cardiomyopathy 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 Sister Diabetes PATERNAL UNCLE Personal history of malignant neoplasm STOMACH Social History Smoking/Tobacco Use Status: Never Smoking risk assessment performed?: Yes Alcohol Intake: never Drug use: Never Substance use type: does not use Housing: house Do you feel safe at home: Yes Do you feel safe in your relationship?: Yes Time Spent with Patient Time Spent with Patient: >85 minutes Time was spent: preparing to see the patient(eg.review tests), obtaining and/or reviewing separately otained hiistory, ordering medications,tests, procedures, referring, communicating with other health residential care facility manager, indepentently interpreting results, counseling the patient and care coordination
== END 2024-01-09 14:25 | disposition home health service (06) | DRG 292 ==
LOC: ER 23:33 → MS 01-03 01:10
PROVIDERS: Nurse Practitioner Acute Care; Surgery; Admitting Provider Family Medicine; Emergency Provider Physician Assistant; PCP Family Medicine; Visit Provider Family Medicine
PROC: 0JPT0WZ Removal of Totally Implantable Vascular Access Device from Trunk Subcutaneous Tissue and Fascia, Open Approach (ICD-10-PCS; CPT 36590; principal; 2024-01-07 14:00)
DX: I13.0 Hypertensive heart and chronic kidney disease with heart failure and stage 1 through stage 4 chronic kidney disease, or unspecified chronic kidney disease (principal); D84.9 Immunodeficiency, unspecified; T80.212A Local infection due to central venous catheter, initial encounter; I50.20 Unspecified systolic (congestive) heart failure; G72.0 Drug-induced myopathy; N17.9 Acute kidney failure, unspecified; L97.418 Non-pressure chronic ulcer of right heel and midfoot with other specified severity; T81.49XA Infection following a procedure, other surgical site, initial encounter; R78.81 Bacteremia; L02.212 Cutaneous abscess of back [any part, except buttock and flank]; I82.B22 Chronic embolism and thrombosis of left subclavian vein; J98.11 Atelectasis; I42.9 Cardiomyopathy, unspecified; I35.0 Nonrheumatic aortic (valve) stenosis; N18.32 Chronic kidney disease, stage 3b; D63.1 Anemia in chronic kidney disease; D69.6 Thrombocytopenia, unspecified; E11.621 Type 2 diabetes mellitus with foot ulcer; R74.8 Abnormal levels of other serum enzymes; I44.7 Left bundle-branch block, unspecified; I25.2 Old myocardial infarction; R53.1 Weakness; K74.60 Unspecified cirrhosis of liver; E83.42 Hypomagnesemia; E66.9 Obesity, unspecified; Z86.711 Personal history of pulmonary embolism; E78.00 Pure hypercholesterolemia, unspecified; E11.22 Type 2 diabetes mellitus with diabetic chronic kidney disease; Z68.38 Body mass index [BMI] 38.0-38.9, adult; Z89.411 Acquired absence of right great toe; I87.2 Venous insufficiency (chronic) (peripheral); Z95.828 Presence of other vascular implants and grafts; L03.031 Cellulitis of right toe; B95.62 Methicillin resistant Staphylococcus aureus infection as the cause of diseases classified elsewhere; T46.6X5A Adverse effect of antihyperlipidemic and antiarteriosclerotic drugs, initial encounter; K22.70 Barrett's esophagus without dysplasia; K80.20 Calculus of gallbladder without cholecystitis without obstruction; R16.1 Splenomegaly, not elsewhere classified
CPT/HCPCS: 36410 ×2; 36590; 00123; 36415; 36591; 71045; 71275; 72197; 73562; 80048; 80053; 80076; 82550; 85027; 85652; 87040; 87077; 93005; 96374; 97161; 99222; 99223; 99231; 99285; 71046; 73630; 80202; 81003; 81015; 82270; 82565; 83036; 83605; 83735; 83880; 84443; 84484; 84550; 85025; 85610; 86140; 87070; 87186; 87205; 93010; 93306; 99232; 99233; 99239; J0692; J1815; J1940; J2004; J3370; J3372; J3490

== ENCOUNTER → 2024-01-16 01:23 | Outpatient (CLI) | payer MEDICARE, SELFPAY ==
--- NOTE | 2024-01-16 | DI.MRI_ITS ---
Exam(s) MR LUMBAR SPINE WO/W EXAM: MR LUMBAR SPINE WO/W CLINICAL HISTORY: L4 abcess, osteomyletis. TECHNIQUE: Multiplanar multisequence MRI of the Lumbar Spine was performed. Additional pre and post gadolinium fat suppressed T1 sagittal and axial sequences were performed. CONTRAST MATERIAL: IV Contrast: 20 mL of Dotarem contrast administered. COMPARISON: CT CT CHEST PE CTA from 01/02/2024 MR MR PELVIS WO/W from 01/06/2024 CR,XR XR PORTABLE CHEST AP POST LINE from 01/07/2024 FINDINGS: Bones: The last intervertebral disc space is designated the L5/S1 level for the numbering purpose of this examination. The vertebral body heights are well maintained. Alignment is satisfactory. Stable high T2 signal at the endplates of L3-4, greater at L4. Stable high signal adjacent to the Sc hmorl's node at the superior endplate of S1. On decreased enhancement within the L4 vertebral body. Stable mild enhancement at the inferior endplate of L3 and superior endplate of S1. No evidence of epidural abscess. Cord: The conus tip ends at the T12 level. It is of normal size and signal intensity. The visualized SI joints and sacrum are well maintained. Soft tissues: Edema and enhancement is again noted within the quadratus lumborum muscles, left greate r than right. Small enhancing collection again noted posterior to the facet joint at L4-5 on the lef t. IMPRESSION: No significant change in enhancement in the posterior soft tissues of the quadratus lumborum muscles which could indicate myositis. Stable small peripherally enhancing collection suspicious for abscess posterior to the L 4 5 facet joint. Some improvement enhancement in the L4 vertebral body. No new findings. No evidence of epidural abscess. DATA REPOSITORY:
[2024-01-16] MEDS: Normal Saline Flush 10 ML SYR IVP (15:28)
[2024-01-16] MEDS: Gadoterate meglumine 20 ML SYRINGE IVP (15:30)
== END ==
PROVIDERS: PCP Family Medicine; Visit Provider Nurse Practitioner Acute Care
DX: M60.08 Infective myositis, other site (principal); R78.81 Bacteremia; B95.62 Methicillin resistant Staphylococcus aureus infection as the cause of diseases classified elsewhere
CPT/HCPCS: 29581; 36415; 72158; 96365; 80202; 82565; J3372

== ENCOUNTER → 2024-01-29 08:38 | Outpatient (BNVA) | payer MEDICARE, SELFPAY | PROVIDERS: PCP Family Medicine; Referring Provider Family Medicine; Visit Provider Podiatrist | DX: E11.22 Type 2 diabetes mellitus with diabetic chronic kidney disease (principal); N18.32 Chronic kidney disease, stage 3b; Z79.4 Long term (current) use of insulin; I87.2 Venous insufficiency (chronic) (peripheral); I83.013 Varicose veins of right lower extremity with ulcer of ankle; L97.311 Non-pressure chronic ulcer of right ankle limited to breakdown of skin; R60.0 Localized edema; L03.115 Cellulitis of right lower limb; T81.49XA Infection following a procedure, other surgical site, initial encounter | CPT/HCPCS: 99214 ==

== ENCOUNTER 2024-01-30 02:56 | Outpatient (CLI) | payer MEDICARE, SELFPAY ==
--- NOTE | 2024-01-30 14:00 | DI.RAD_ITS ---
Exam(s) XR TOE RT GREAT EXAM: XR TOE RT GREAT CLINICAL HISTORY: SURGICAL SITE INFECTION, ? OSTEO,[id number]. TECHNIQUE: 2D digital imaging was performed. COMPARISON: CR XR FOOT RT COMPLETE from 01/06/2024 FINDINGS: BONES: No resection of distal portion of proximal phalanx. Abnormal widening of the joint space is well as dorsal dislocation of the distal phalanx. There is also medial subluxation. There is a luce ncy in the distal aspect of the proximal phalanx which was not present previously and is suspicious f or osteomyelitis. No bony destructive lesion is seen. SOFT TISSUE: Swelling over great toe. Gauze surrounding great toe. Vascular calcifications. IMPRESSION: Prior resection of the distal aspect of the proximal phalanx of the great toe. Abnormal lucency susp icious for osteomyelitis. Dorsomedial dislocation at the interphalangeal joint. DATA REPOSITORY: RADIATION DOSE DELIVERED:
== END 2024-01-30 03:16 ==
LOC: DI 02:57
PROVIDERS: PCP Family Medicine; Visit Provider Podiatrist
DX: T81.49XA Infection following a procedure, other surgical site, initial encounter (principal); X58.XXXA Exposure to other specified factors, initial encounter
CPT/HCPCS: 96365; 73660; J3372

== ENCOUNTER → 2024-02-06 08:40 | Outpatient (BNVA) | payer MEDICARE, SELFPAY | PROVIDERS: PCP Family Medicine; Referring Provider Family Medicine; Visit Provider Internal Medicine Cardiovascular Disease | DX: I35.0 Nonrheumatic aortic (valve) stenosis (principal); I50.20 Unspecified systolic (congestive) heart failure | CPT/HCPCS: 99213 ==

== ENCOUNTER 2024-02-07 01:03 | Outpatient (RCR) | payer MEDICARE, SELFPAY ==
[2024-01-09 00:11] VITALS: BP 131/74; PULSE 59; RESP 17; TEMP 36.4
[2024-01-10 12:05] LABS: CREATININE 2.1 mg/dL (0.70-1.30); Estimated GFR 34.29 (mL/min/1.73m2)
[2024-01-10 12:17] LABS: Vancomycin, Trough 20.7 ug/mL (10.0-20.0)
[2024-01-10] MEDS: VANCOMYCIN/WATER (PEG) 1.25 GM/250 ML BAG IVPB (12:44)
[2024-01-10] MEDS: Normal Saline Flush 10 ML SYR IVP (12:49)
[2024-01-12] MEDS: Normal Saline Flush 10 ML SYR IVP (12:24)
[2024-01-12] MEDS: VANCOMYCIN/WATER (PEG) 1.25 GM/250 ML BAG IVPB (12:24)
[2024-01-14 11:36] LABS: Abs Immature Grans 0.03 10^3/uL (0.0-0.06); Absolute Basophil Count 0.08 10^3/uL (0.0-0.2); Absolute Eosinophil Count 0.35 10^3/uL (0.0-0.7); Absolute Lymphocyte Count 0.46 10^3/uL (1.2-3.4); Absolute Monocyte Count 0.42 10^3/uL (0.1-0.8); Absolute Neutrophil Count 3.39 10^3/uL (1.2-6.7); Basophils % 1.7 %; Eosinophils % 7.4 %; HCT 35.3 % (40.0-50.0); HGB 11.3 g/dL (13.5-17.5); Immature Grans % 0.6 %; Lymphocytes % 9.7 %; MCH 31.8 pg (27.0-33.0); MCV 99 fL (80-95); MPV 11.4 fL (8.0-11.0); Monocytes % 8.9 %; Neutrophils % 71.7 %; Platelet Count 101 10^3/uL (130-400); RBC 3.55 10^6/uL (4.36-5.78); RDW 17.7 % (11.8-14.1); RDW-SD 64.2 fL; WBC 4.73 10^3/uL (4.4-10.8)
[2024-01-14 11:45] VITALS: BP 130/82; PULSE 68; RESP 17; TEMP 36.5; O2SAT 100
[2024-01-14 11:57] LABS: Iron 54 ug/dL (65-175); Total Iron Binding Capacity 291 ug/dL (250-450); Transferrin Sat 19 % (20-55); Vancomycin, Trough 20.6 ug/mL (10.0-20.0)
[2024-01-14] MEDS: Normal Saline Flush 10 ML SYR IVP (12:11)
[2024-01-14 12:13] LABS: ALT 57 U/L (16-63); AST 71 U/L (15-37); Albumin 2.7 g/dL (3.4-5.0); Alkaline Phosphatase 291 U/L (46-116); Anion Gap 6.4 mmol/L (3-11); BUN 77 mg/dL (7-18); Bilirubin, Total 0.67 mg/dL (0.2-1.0); CO2 25.6 mmol/L (21.0-32.0); CREATININE 1.7 mg/dL (0.70-1.30); Chloride 109 mmol/L (98-107); Estimated GFR 44.18 (mL/min/1.73m2); Ferritin 592 ng/mL (26-388); Glucose 140 mg/dL (74-106); Potassium 5.8 mmol/L (3.5-5.1); Sodium 141 mmol/L (136-145); Total Protein 8.4 g/dL (6.4-8.2)
[2024-01-14] MEDS: VANCOMYCIN/WATER (PEG) 1.25 GM/250 ML BAG IVPB (12:22)
[2024-01-16 11:59] LABS: Vancomycin, Trough 21.5 ug/mL (10.0-20.0)
[2024-01-16 12:46] LABS: CREATININE 1.7 mg/dL (0.70-1.30); Estimated GFR 44.18 (mL/min/1.73m2)
[2024-01-16] MEDS: VANCOMYCIN/WATER (PEG) 1.25 GM/250 ML BAG IVPB (13:03)
[2024-01-16] MEDS: Normal Saline Flush 10 ML SYR IVP (13:04)
[2024-01-16 13:05] VITALS: PULSE 68; TEMP 36.5
[2024-01-18] MEDS: VANCOMYCIN/WATER (PEG) 1.25 GM/250 ML BAG IVPB (12:42)
[2024-01-18] MEDS: Normal Saline Flush 10 ML SYR IVP (12:48)
[2024-01-20] MEDS: VANCOMYCIN/WATER (PEG) 1.25 GM/250 ML BAG IVPB (12:21)
[2024-01-20] MEDS: Normal Saline Flush 10 ML SYR IVP (12:21)
[2024-01-22] MEDS: VANCOMYCIN/WATER (PEG) 1.25 GM/250 ML BAG IVPB (12:20)
[2024-01-22] MEDS: Normal Saline Flush 10 ML SYR IVP (12:22)
[2024-01-24 12:16] LABS: Potassium 4.8 mmol/L (3.5-5.1)
[2024-01-24 12:17] LABS: CREATININE 1.7 mg/dL (0.70-1.30); Estimated GFR 44.18 (mL/min/1.73m2)
[2024-01-24 12:44] LABS: Vancomycin, Trough 21.6 ug/mL (10.0-20.0)
[2024-01-24] MEDS: VANCOMYCIN/WATER (PEG) 1 GM/200 ML BAG IVPB (13:07)
[2024-01-24] MEDS: Normal Saline Flush 10 ML SYR IVP (13:09)
[2024-01-24] MEDS: Bacitracin 1 PACKET (13:11)
[2024-01-26] MEDS: VANCOMYCIN/WATER (PEG) 1 GM/200 ML BAG IVPB (13:11)
[2024-01-27] VITALS (7 sets, daily range): BP systolic 99–123; BP diastolic 48–77; PULSE 57–63; RESP 17; TEMP 36.2–36.4; O2SAT 98–100
[2024-01-27] MEDS: IMMUNE GLOBULIN 40 GM/400 ML BTL IVPB ×3 (07:47→10:25)
[2024-01-27 07:59] LABS: Abs Immature Grans 0.01 10^3/uL (0.0-0.06); Absolute Basophil Count 0.07 10^3/uL (0.0-0.2); Absolute Eosinophil Count 0.33 10^3/uL (0.0-0.7); Absolute Lymphocyte Count 0.34 10^3/uL (1.2-3.4); Absolute Monocyte Count 0.38 10^3/uL (0.1-0.8); Absolute Neutrophil Count 2.02 10^3/uL (1.2-6.7); Basophils % 2.2 %; Eosinophils % 10.5 %; HCT 36.4 % (40.0-50.0); HGB 11.3 g/dL (13.5-17.5); Immature Grans % 0.3 %; Lymphocytes % 10.8 %; MCV 103 fL (80-95); Monocytes % 12.1 %; Neutrophils % 64.1 %; RBC 3.53 10^6/uL (4.36-5.78); RDW 17.2 % (11.8-14.1); WBC 3.15 10^3/uL (4.4-10.8)
[2024-01-27] MEDS: Normal Saline Flush 10 ML SYR IVP (08:00)
[2024-01-27 08:18] LABS: Platelet Count 48 10^3/uL (130-400)
[2024-01-27 08:19] LABS: Diff Comment PLT Morph Reviewed; RBC Morphology Normal
[2024-01-27 08:24] LABS: C-Reactive Protein 1.09 mg/dL (<or=0.5); CREATININE 1.8 mg/dL (0.70-1.30); Estimated GFR 41.26 (mL/min/1.73m2)
[2024-01-28] VITALS (7 sets, daily range): BP systolic 100–130; BP diastolic 51–78; PULSE 60–66; RESP 17–20; TEMP 36.5–36.7; O2SAT 97–100
[2024-01-28] MEDS: Normal Saline Flush 10 ML SYR IVP (07:29)
[2024-01-28] MEDS: IMMUNE GLOBULIN 40 GM/400 ML BTL IVPB ×3 (07:32→10:09)
[2024-01-28 07:57] LABS: CREATININE 1.7 mg/dL (0.70-1.30); Estimated GFR 44.18 (mL/min/1.73m2)
[2024-01-28 08:06] LABS: Vancomycin, Trough 21.5 ug/mL (10.0-20.0)
[2024-01-28] MEDS: VANCOMYCIN/WATER (PEG) 1 GM/200 ML BAG IVPB (11:09)
[2024-01-30] MEDS: VANCOMYCIN/WATER (PEG) 1 GM/200 ML BAG IVPB (12:20)
[2024-01-30] MEDS: Normal Saline Flush 10 ML SYR IVP (12:21)
[2024-02-01] MEDS: Normal Saline Flush 10 ML SYR IVP (12:37)
[2024-02-01] MEDS: VANCOMYCIN/WATER (PEG) 1 GM/200 ML BAG IVPB (12:38)
[2024-02-01 12:51] VITALS: BP 127/62; PULSE 61; RESP 18; TEMP 36.9; O2SAT 98
[2024-02-03] MEDS: VANCOMYCIN/WATER (PEG) 1 GM/200 ML BAG IVPB (12:02)
[2024-02-03] MEDS: Normal Saline Flush 10 ML SYR IVP (12:02)
[2024-02-05 12:05] LABS: ESR 49 mm/hr (0-20)
[2024-02-05 12:18] LABS: C-Reactive Protein 1.36 mg/dL (<or=0.5)
[2024-02-05 12:28] LABS: NT-proBNP 11198 pg/mL (<300)
[2024-02-05 12:31] LABS: CREATININE 1.8 mg/dL (0.70-1.30); Estimated GFR 41.26 (mL/min/1.73m2)
[2024-02-05] MEDS: VANCOMYCIN/WATER (PEG) 1 GM/200 ML BAG IVPB (12:46)
[2024-02-05] MEDS: Normal Saline Flush 10 ML SYR IVP (12:49)
[2024-02-05 14:37] LABS: Vancomycin, Trough 20.5 ug/mL (10.0-20.0)
[2024-02-07] MEDS: VANCOMYCIN/WATER (PEG) 1 GM/200 ML BAG IVPB (11:47)
[2024-02-07] MEDS: Normal Saline Flush 10 ML SYR IVP (11:52)
== END 2024-02-08 23:59 | disposition home or self-care (01) ==
LOC: INF 01:03
PROVIDERS: Internal Medicine Hematology & Oncology; Podiatrist; PCP Family Medicine; Visit Provider Nurse Practitioner Acute Care
DX: N18.31 Chronic kidney disease, stage 3a; D50.9 Iron deficiency anemia, unspecified; M60.9 Myositis, unspecified; D61.818 Other pancytopenia; D78 Intraoperative and postprocedural complications of the spleen
CPT/HCPCS: 29581; 36410; 36415; 80048; 80053; 85652; 96365; 96366; 96372; 80202; 82565; 82728; 83540; 83550; 83880; 84132; 85025; 86140; J0881; J1459; J3372

== ENCOUNTER 2024-02-12 01:00 | Outpatient (CLI) | payer MEDICARE, SELFPAY ==
[2024-02-12] MEDS: Gadoterate meglumine 20 ML SYRINGE IVP (14:28)
--- NOTE | 2024-02-12 15:05 | DI.MRI_ITS ---
Exam(s) MR LUMBAR SPINE WO/W EXAM: MR LUMBAR SPINE WO/W CLINICAL HISTORY: PARASPINAL ABSCESS, L02.212. TECHNIQUE: Multiplanar multisequence MRI of the Lumbar spine was performed. Both pre and post contra st infused sequences were performed. IV contrast injected was 20 mL Dotarem COMPARISON: CT CT CHEST PE CTA from 01/02/2024 MR MR PELVIS WO/W from 01/06/2024 MR MR LUMBAR SPINE WO/W from 01/16/2024 FINDINGS: The previously described endplate findings at L3-4 level exhibit minimal if any significant change, i ncluding the amount of signal abnormality in the sub endplate regions at this level and the amount of sub endplate enhancement following contrast injection. There is also no significant signal abnormali ty within the disc space and no loss of disc height nor enhancement within the disc space at L3-4. Th ere is also no evidence of epidural abscess at this level. There is increased signal within the synovial cavities of both facet joints at L3-4 again noted. The previously described fluid collection off the posterior aspect of the left facet joint at L3-4 level is less evident than on the MRI scan of 01/06/2024. There is still some enhancement posterior to the left facet joints of both L3-4 and L4-5 levels. However, this appears slightly less than previously p resent. There is no evidence of abscess within the spinal canal-epi dural space at this level nor oth er levels. Conus medullaris is at normal level. There is no evidence of conus mass nor subjacent clumping of in trathecal nerve roots to suggest arachnoiditis. The distal thecal sac appears unremarkable.There is no evidence of Tarlov intrasacral cysts nor other significant findings within the sacral canal There are no disc herniations and central canal dimensions are within normal limits at all levels the lumbar spine. There is also no evidence of significant foraminal stenosis in the lumbar spine with t he exception of an element of foraminal stenosis on the left side of L3-4 level which is mostly relat ed to degenerative facet arthropathy.. IMPRESSION: 1. Compared to the MRI scan of 01/05/2025 the collection coming off the posterior aspect of the left facet joint at L4-5 is less evident on the present study. There is still some mild enhancement behind posterior to the left facet joints of L3-4 and L4-5 but less than previous. There is no evidence of epidural abscess at these levels nor elsewhere in the lumbar spine. 2. The amount of sub endplate signal abnormality and edema at L3 L3-4 level is stable. There is no ev idence of obvious discitis at this level. No epidural collection at this level. Recommend repeat MRI scan in 6 months, earlier if clinically indicated. DATA REPOSITORY:
== END 2024-02-12 01:20 ==
LOC: DI 01:00
PROVIDERS: PCP Family Medicine; Visit Provider Family Medicine
DX: L02.212 Cutaneous abscess of back [any part, except buttock and flank] (principal)
CPT/HCPCS: 72158

== ENCOUNTER → 2024-02-18 08:52 | Outpatient (BNVA) | payer MEDICARE, SELFPAY | PROVIDERS: PCP Family Medicine; Referring Provider Family Medicine; Visit Provider Podiatrist | DX: E11.22 Type 2 diabetes mellitus with diabetic chronic kidney disease (principal); N18.32 Chronic kidney disease, stage 3b; Z79.4 Long term (current) use of insulin; I87.2 Venous insufficiency (chronic) (peripheral); I83.013 Varicose veins of right lower extremity with ulcer of ankle; L97.311 Non-pressure chronic ulcer of right ankle limited to breakdown of skin; R60.0 Localized edema; T81.49XA Infection following a procedure, other surgical site, initial encounter; L03.115 Cellulitis of right lower limb | CPT/HCPCS: 99213 ==

== ENCOUNTER 2024-03-09 02:28 | Outpatient (CLI) | payer MEDICARE, SELFPAY ==
--- NOTE | 2024-03-09 09:11 | DI.RAD_ITS ---
Exam(s) XR FOOT RT COMPLETE EXAM: XR FOOT RT COMPLETE CLINICAL HISTORY: ? osteomyelitis, diabetic ulcer rt foot,L97.519. TECHNIQUE: 2D digital imaging was performed of the right foot. Four images were obtained. AP, obli que and lateral views were obtained. COMPARISON: CR XR TOE RT GREAT from 01/30/2024 FINDINGS: BONES: No acute fracture is present. There has been progression of the cortical erosive changes of th e distal aspect of the proximal phalanx of the great toe. In addition there are now erosion seen bot h medially and laterally in the distal aspect of the proximal phalanx. There is also progressive sof t tissue swelling of the great toe. The findings are suspicious for osteomyelitis involving the prox imal phalanx of the great toe. There is a small plantar calcaneal spur. There is an enthesophyte at the posterior calcaneus. JOINTS: There is again seen subluxation of the distal phalanx of the great toe dorsally and medially relative to the proximal phalanx. There are hammertoe deformities of the 2nd through 5th toes. SOFT TISSUE: Vascular calcifications are present. There is soft tissue swelling of the foot. IMPRESSION: Worsening cortical erosive changes involving the proximal phalanx of the great toe suspicious for ost eomyelitis. Soft tissue swelling of the great toe is noted. Persistent subluxation of the distal ph alanx of the great toe relative to the proximal phalanx. DATA REPOSITORY: RADIATION DOSE DELIVERED:
== END 2024-03-09 02:48 ==
LOC: DI 02:28
PROVIDERS: PCP Family Medicine; Visit Provider Podiatrist
DX: E11.621 Type 2 diabetes mellitus with foot ulcer (principal)
CPT/HCPCS: 36415; 80053; 85652; 73630; 85025; 86140

== ENCOUNTER 2024-03-09 02:40 | Outpatient (RCR) | payer MEDICARE, SELFPAY ==
[2024-02-09 00:06] VITALS: BP 131/74; PULSE 59; RESP 17; TEMP 36.4
[2024-02-09] MEDS: VANCOMYCIN/WATER (PEG) 1 GM/200 ML BAG IVPB (12:13)
[2024-02-09] MEDS: Normal Saline Flush 10 ML SYR IVP (13:44)
[2024-02-11 11:04] LABS: Abs Immature Grans 0.01 10^3/uL (0.0-0.06); Absolute Basophil Count 0.07 10^3/uL (0.0-0.2); Absolute Eosinophil Count 0.32 10^3/uL (0.0-0.7); Absolute Lymphocyte Count 0.36 10^3/uL (1.2-3.4); Absolute Monocyte Count 0.38 10^3/uL (0.1-0.8); Absolute Neutrophil Count 2.32 10^3/uL (1.2-6.7); Eosinophils % 9.2 %; HCT 38.3 % (40.0-50.0); HGB 11.8 g/dL (13.5-17.5); Immature Grans % 0.3 %; Lymphocytes % 10.4 %; MCH 31.8 pg (27.0-33.0); MCHC 30.8 % (32.0-36.0); MCV 103 fL (80-95); MPV 13.7 fL (8.0-11.0); Neutrophils % 67.1 %; RBC 3.71 10^6/uL (4.36-5.78); RDW 16.7 % (11.8-14.1); WBC 3.46 10^3/uL (4.4-10.8)
[2024-02-11 11:15] LABS: CREATININE 1.8 mg/dL (0.70-1.30); Estimated GFR 41.26 (mL/min/1.73m2)
[2024-02-11 11:19] LABS: Vancomycin, Trough 24.3 ug/mL (10.0-20.0)
[2024-02-11 11:24] LABS: Platelet Count 43 10^3/uL (130-400)
[2024-02-11] MEDS: Normal Saline Flush 10 ML SYR IVP (11:48)
[2024-02-11] MEDS: VANCOMYCIN 500 MG in Normal Saline 100 ML 100 MG IVPB (11:50)
[2024-02-13] MEDS: VANCOMYCIN 500 MG in Normal Saline 100 ML 100 MG IVPB (12:02)
[2024-02-13] MEDS: Normal Saline Flush 10 ML SYR IVP (12:05)
[2024-02-15] MEDS: Normal Saline Flush 10 ML SYR IVP (12:13)
[2024-02-15] MEDS: VANCOMYCIN 500 MG in Normal Saline 100 ML 100 MG IVPB (12:13)
[2024-02-17] MEDS: VANCOMYCIN 500 MG in Normal Saline 100 ML 100 MG IVPB (11:49)
[2024-02-17] MEDS: Normal Saline Flush 10 ML SYR IVP (12:02)
[2024-02-24] VITALS (9 sets, daily range): BP systolic 109–134; BP diastolic 59–87; PULSE 61–67; RESP 18; TEMP 37–37.1; O2SAT 96–100
[2024-02-24] MEDS: IMMUNE GLOBULIN 40 GM/400 ML BTL IVPB ×3 (07:52→10:21)
[2024-02-24 08:02] LABS: Abs Immature Grans 0.01 10^3/uL (0.0-0.06); Absolute Basophil Count 0.05 10^3/uL (0.0-0.2); Absolute Eosinophil Count 0.28 10^3/uL (0.0-0.7); Absolute Lymphocyte Count 0.31 10^3/uL (1.2-3.4); Absolute Monocyte Count 0.37 10^3/uL (0.1-0.8); Absolute Neutrophil Count 2.24 10^3/uL (1.2-6.7); Basophils % 1.5 %; Eosinophils % 8.6 %; HCT 36.7 % (40.0-50.0); HGB 11.5 g/dL (13.5-17.5); Immature Grans % 0.3 %; Lymphocytes % 9.5 %; MCH 32.4 pg (27.0-33.0); MCHC 31.3 % (32.0-36.0); MCV 103 fL (80-95); MPV 10.8 fL (8.0-11.0); Monocytes % 11.3 %; Neutrophils % 68.8 %; RBC 3.55 10^6/uL (4.36-5.78); RDW 15.7 % (11.8-14.1); RDW-SD 59.9 fL; WBC 3.26 10^3/uL (4.4-10.8)
[2024-02-24 08:18] LABS: C-Reactive Protein 0.77 mg/dL (<or=0.5); Creatine Kinase 67 U/L (39-308); Estimated GFR 36.36 (mL/min/1.73m2)
[2024-02-24 08:41] LABS: Basophilic Stippling Present; Diff Comment Diff Reviewed; Platelet Count 43 10^3/uL (130-400)
[2024-02-24] MEDS: Normal Saline Flush 10 ML SYR IVP (09:13)
[2024-02-25] MEDS: Normal Saline Flush 10 ML SYR IVP (07:08)
[2024-02-25] MEDS: Bacitracin 1 PACKET (07:08)
[2024-02-25] MEDS: IMMUNE GLOBULIN 40 GM/400 ML BTL IVPB ×3 (07:42→10:25)
[2024-02-25 07:45] VITALS: BP 107/57; PULSE 68; RESP 17; TEMP 36.4; O2SAT 98
[2024-02-25 08:04] VITALS: BP 104/65; PULSE 64; RESP 17; TEMP 36.4; O2SAT 100
[2024-02-25 08:45] VITALS: BP 123/71; PULSE 63; RESP 17; TEMP 36.4; O2SAT 100
[2024-02-25 09:15] VITALS: BP 114/74; PULSE 64; RESP 17; TEMP 36.4; O2SAT 100
[2024-02-25 09:45] VITALS: BP 112/74; PULSE 72; RESP 17; TEMP 36.3; O2SAT 99
[2024-02-25 10:15] VITALS: BP 134/81; PULSE 65; RESP 17; TEMP 36.4; O2SAT 100
[2024-03-09 07:56] LABS: Abs Immature Grans 0.01 10^3/uL (0.0-0.06); Absolute Basophil Count 0.04 10^3/uL (0.0-0.2); Absolute Lymphocyte Count 0.35 10^3/uL (1.2-3.4); Absolute Monocyte Count 0.38 10^3/uL (0.1-0.8); Absolute Neutrophil Count 2.46 10^3/uL (1.2-6.7); Basophils % 1.1 %; Eosinophils % 8.5 %; HCT 40.7 % (40.0-50.0); HGB 12.6 g/dL (13.5-17.5); Immature Grans % 0.3 %; Lymphocytes % 9.9 %; MCH 31.8 pg (27.0-33.0); MCV 103 fL (80-95); Monocytes % 10.7 %; Neutrophils % 69.5 %; RBC 3.96 10^6/uL (4.36-5.78); RDW 14.9 % (11.8-14.1); WBC 3.54 10^3/uL (4.4-10.8)
[2024-03-09 08:01] LABS: ESR 63 mm/hr (0-20)
[2024-03-09 08:15] LABS: C-Reactive Protein 0.87 mg/dL (<or=0.5)
[2024-03-09 08:17] LABS: ALT 63 U/L (16-63); AST 76 U/L (15-37); Albumin 2.9 g/dL (3.4-5.0); Alkaline Phosphatase 250 U/L (46-116); Anion Gap 8.1 mmol/L (3-11); BUN 75 mg/dL (7-18); CO2 26.9 mmol/L (21.0-32.0); CREATININE 1.9 mg/dL (0.70-1.30); Calcium 9.3 mg/dL (8.5-10.1); Chloride 102 mmol/L (98-107); Estimated GFR 38.66 (mL/min/1.73m2); Glucose 160 mg/dL (74-106); Potassium 4.6 mmol/L (3.5-5.1); Sodium 137 mmol/L (136-145); Total Protein 9.1 g/dL (6.4-8.2)
[2024-03-09 08:23] LABS: Diff Comment Diff Reviewed; Platelet Count 43 10^3/uL (130-400); RBC Morphology Normal
== END 2024-03-09 23:59 | disposition home or self-care (01) ==
LOC: INF 02:40
PROVIDERS: Nurse Practitioner Adult Health; PCP Family Medicine; Visit Provider Internal Medicine
DX: D50.9 Iron deficiency anemia, unspecified; N18.30 Chronic kidney disease, stage 3 unspecified; D63.1 Anemia in chronic kidney disease; Z79.52 Long term (current) use of systemic steroids; M60.9 Myositis, unspecified
CPT/HCPCS: 36415; 80053; 82550; 85652; 96365; 96366; 96372; 80202; 82565; 85025; 86140; J0881; J1459; J3370; J3372

== ENCOUNTER 2024-03-31 01:17 | Outpatient (CLI) | payer MEDICARE, SELFPAY ==
--- NOTE | 2024-03-31 | DI.MRI_ITS ---
Exam(s) MR LOWER EXTREMITY RT WO/W EXAM: MR LOWER EXTREMITY RT WO/W CLINICAL HISTORY: ACUTE OSTEOMYELITIS RT GREAT TOE/ANKLE/FOOT M86.179 TECHNIQUE: Multiplanar multisequence MRI was performed. COMPARISON: CR XR TOE RT GREAT from 01/30/2024 CR XR FOOT RT COMPLETE from 03/09/2024 CR XR FOOT RT COMPLETE from 03/31/2024 FINDINGS: MARROW:There has been prior resection of distal aspect of the proximal phalanx of the great toe. There is again noted dorsal-lateral dislocation of the distal phalanx. There is some confluent hypointense T1 signal in the distal half of the proximal phalanx which is elias picious for osteomyelitis. This also exhibits increased signal on STIR images as well as enhancement following contrast injection. There is also similar abnormal signal abnormality evident in the proximal half of the distal phalanx. . This also exhibits enhancement following contrast injection. There is no abnormal signal in the great toe metatarsal head nor effusion in the great toe metatarsop halangeal joint. MUSCLES: There is no evidence of abnormal signal nor mass in the visualized muscles. EXTRAMUSCULAR SOFT TISSUES: Signal in the adjacent tissues is reactive. There is no focal soft tissu e abscess. OTHER: None. IMPRESSION: 1. Findings are consistent with osteomyelitis involving the mid-distal remaining aspect of the proxim al phalanx as well as the proximal half of the remaining distal phalanx of the great toe. DATA REPOSITORY:
--- NOTE | 2024-03-31 08:15 | DI.RAD_ITS ---
Exam(s) XR FOOT RT COMPLETE EXAM: XR FOOT RT COMPLETE CLINICAL HISTORY: diabetic ulcer rt foot, ? osteo,e11.621,l97.519. TECHNIQUE: 2D digital imaging was performed of the right foot. Three images were obtained. AP, obl ique and lateral views were obtained. COMPARISON: CR XR FOOT RT COMPLETE from 03/09/2024 FINDINGS: BONES: No acute fracture is present. There are further destructive changes involving the head proxima l phalanx of the great toe. The findings are suspicious for osteomyelitis. There is an enthesophyte at the posterior calcaneus. There is a small spur at the inferior calcaneus. JOINTS: There appears to be a posterior dislocation at the interphalangeal joint of the great toe. SOFT TISSUE: There is soft tissue swelling of the great toe. Extensive vascular calcification is pre sent. IMPRESSION: Further destructive changes seen at the head of the proximal phalanx of the great toe suspicious for osteomyelitis. DATA REPOSITORY: RADIATION DOSE DELIVERED:
[2024-03-31] MEDS: Normal Saline Flush 10 ML SYR IVP (09:58)
[2024-03-31] MEDS: Gadoterate meglumine 20 ML SYRINGE IVP (09:59)
== END 2024-03-31 01:37 ==
LOC: DI 01:17
PROVIDERS: PCP Family Medicine; Visit Provider Family Medicine
DX: E11.621 Type 2 diabetes mellitus with foot ulcer (principal); L97.519 Non-pressure chronic ulcer of other part of right foot with unspecified severity
CPT/HCPCS: 36591; 85652; 96523; 73630; 73720

== ENCOUNTER → 2024-04-01 13:46 | Outpatient (BNVA) | payer MEDICARE, SELFPAY | PROVIDERS: PCP Family Medicine; Referring Provider Family Medicine; Visit Provider Podiatrist | DX: I83.013 Varicose veins of right lower extremity with ulcer of ankle (principal); L97.311 Non-pressure chronic ulcer of right ankle limited to breakdown of skin; R60.0 Localized edema; M86.9 Osteomyelitis, unspecified; L03.115 Cellulitis of right lower limb; E11.22 Type 2 diabetes mellitus with diabetic chronic kidney disease; N18.32 Chronic kidney disease, stage 3b; Z79.4 Long term (current) use of insulin | CPT/HCPCS: 99214 ==

== ENCOUNTER 2024-04-06 01:35 | Outpatient (RCR) | payer MEDICARE, SELFPAY ==
[2024-03-10 00:20] VITALS: BP 131/74; PULSE 59; RESP 17; TEMP 36.4
[2024-03-23] VITALS (7 sets, daily range): BP systolic 111–153; BP diastolic 58–93; PULSE 56–69; RESP 16–18; TEMP 36.2–36.5; O2SAT 99–100
[2024-03-23 07:46] LABS: Abs Immature Grans 0.01 10^3/uL (0.0-0.06); Absolute Basophil Count 0.04 10^3/uL (0.0-0.2); Absolute Eosinophil Count 0.36 10^3/uL (0.0-0.7); Absolute Lymphocyte Count 0.33 10^3/uL (1.2-3.4); Absolute Monocyte Count 0.35 10^3/uL (0.1-0.8); Absolute Neutrophil Count 2.11 10^3/uL (1.2-6.7); Basophils % 1.3 %; Eosinophils % 11.3 %; HCT 36.4 % (40.0-50.0); HGB 11.6 g/dL (13.5-17.5); Immature Grans % 0.3 %; Lymphocytes % 10.3 %; MCHC 31.9 % (32.0-36.0); MCV 101 fL (80-95); MPV 11.6 fL (8.0-11.0); Monocytes % 10.9 %; Neutrophils % 65.9 %; RBC 3.62 10^6/uL (4.36-5.78); RDW 14.3 % (11.8-14.1); RDW-SD 53.1 fL
[2024-03-23 07:57] LABS: Diff Comment PLT Morph Reviewed; Platelet Count 35 10^3/uL (130-400); RBC Morphology Normal
[2024-03-23 08:03] LABS: Creatine Kinase 95 U/L (39-308); Estimated GFR 36.36 (mL/min/1.73m2)
[2024-03-23 08:05] LABS: C-Reactive Protein < 0.50 mg/dL (<or=0.5)
[2024-03-23] MEDS: IMMUNE GLOBULIN 10 GM/100 ML BTL IVPB (09:07)
[2024-03-23] MEDS: IMMUNE GLOBULIN 20 GM/200 ML BTL IVPB (09:57)
[2024-03-23] MEDS: Normal Saline Flush 10 ML SYR IVP (10:44)
[2024-03-23] MEDS: IMMUNE GLOBULIN 40 GM/400 ML BTL IVPB ×2 (10:44→11:43)
[2024-03-23 15:59] LABS: Iron 79 ug/dL (65-175); Total Iron Binding Capacity 295 ug/dL (250-450); Transferrin Sat 27 % (20-55)
[2024-03-24] VITALS (7 sets, daily range): BP systolic 101–137; BP diastolic 59–84; PULSE 60–63; RESP 16–18; TEMP 36.3–36.5; O2SAT 96–99
[2024-03-24] MEDS: IMMUNE GLOBULIN 10 GM/100 ML BTL IVPB (07:54)
[2024-03-24] MEDS: Normal Saline Flush 10 ML SYR IVP (07:54)
[2024-03-24] MEDS: IMMUNE GLOBULIN 20 GM/200 ML BTL IVPB (08:41)
[2024-03-24] MEDS: IMMUNE GLOBULIN 40 GM/400 ML BTL IVPB ×2 (09:29→10:26)
[2024-03-31] MEDS: Normal Saline Flush 10 ML SYR IVP ×2 (10:30→10:35)
[2024-03-31 10:50] LABS: ESR 69 mm/hr (0-20)
[2024-04-06] MEDS: Normal Saline Flush 10 ML SYR IVP (07:18)
[2024-04-06 07:28] LABS: Abs Immature Grans 0.01 10^3/uL (0.0-0.06); Absolute Basophil Count 0.04 10^3/uL (0.0-0.2); Absolute Eosinophil Count 0.33 10^3/uL (0.0-0.7); Absolute Monocyte Count 0.38 10^3/uL (0.1-0.8); Absolute Neutrophil Count 1.34 10^3/uL (1.2-6.7); Basophils % 1.7 %; Eosinophils % 13.8 %; HCT 37.5 % (40.0-50.0); HGB 11.8 g/dL (13.5-17.5); Immature Grans % 0.4 %; Lymphocytes % 12.5 %; MCHC 31.5 % (32.0-36.0); MCV 102 fL (80-95); MPV 12.7 fL (8.0-11.0); Monocytes % 15.8 %; Neutrophils % 55.8 %; RBC 3.69 10^6/uL (4.36-5.78); RDW 14.6 % (11.8-14.1)
[2024-04-06 07:34] LABS: Estimated GFR 36.13 (mL/min/1.73m2)
[2024-04-06 07:42] LABS: Platelet Count 39 10^3/uL (130-400)
== END 2024-04-09 23:59 | disposition home or self-care (01) ==
LOC: INF 01:35
PROVIDERS: Nurse Practitioner Adult Health; Podiatrist; PCP Family Medicine; Visit Provider Internal Medicine
DX: D50.9 Iron deficiency anemia, unspecified (principal); D63.1 Anemia in chronic kidney disease; Z79.52 Long term (current) use of systemic steroids; M60.9 Myositis, unspecified
CPT/HCPCS: 36591; 82550; 85652; 96365; 96366; 96372; 96523; 82565; 83540; 83550; 85025; 86140; J0881; J1459

== ENCOUNTER 2024-04-27 01:35 | Outpatient (CLI) | payer MEDICARE, SELFPAY ==
--- NOTE | 2024-04-27 07:30 | DI.RAD_ITS ---
Exam(s) XR TOE RT GREAT EXAM: XR TOE RT GREAT CLINICAL HISTORY: osteomyelitis,m86.9. TECHNIQUE: 2D digital imaging was performed. COMPARISON: CR XR FOOT RT COMPLETE from 03/09/2024 MR MR LOWER EXTREMITY RT WO/W from 03/31/2024 CR XR FOOT RT COMPLETE from 03/31/2024 FINDINGS: BONES: Resection of the distal portion of the proximal phalanx of the great toe again noted. No acut e fracture is present. No bony destructive lesion is seen. JOINTS: Stable appearance dorsal subluxation of the distal phalanx with respect to the middle phalanx . SOFT TISSUE: Soft tissue swelling of the great toe as well as along the dorsum of the foot. Vascular calcifications. IMPRESSION: Postsurgical changes of the proximal phalanx. Soft tissue swelling. No acute bony erosions are visi ble. Stable dorsal subluxation or dislocation of the distal phalanx of the great toe. DATA REPOSITORY: RADIATION DOSE DELIVERED:
== END 2024-04-27 01:55 ==
LOC: DI 01:35
PROVIDERS: PCP Family Medicine; Visit Provider Podiatrist
DX: Z98.890 Other specified postprocedural states (principal); M86.171 Other acute osteomyelitis, right ankle and foot
CPT/HCPCS: 73660

== ENCOUNTER 2024-05-05 01:51 | Outpatient (RCR) | payer MEDICARE, SELFPAY ==
[2024-04-10 00:30] VITALS: BP 131/74; PULSE 59; RESP 17; TEMP 36.4
[2024-04-20 07:28] LABS: Abs Immature Grans 0.01 10^3/uL (0.0-0.06); Absolute Basophil Count 0.06 10^3/uL (0.0-0.2); Absolute Eosinophil Count 0.29 10^3/uL (0.0-0.7); Absolute Lymphocyte Count 0.36 10^3/uL (1.2-3.4); Absolute Monocyte Count 0.38 10^3/uL (0.1-0.8); Absolute Neutrophil Count 2.07 10^3/uL (1.2-6.7); Basophils % 1.9 %; Eosinophils % 9.1 %; HCT 37.7 % (40.0-50.0); HGB 11.8 g/dL (13.5-17.5); Immature Grans % 0.3 %; Lymphocytes % 11.4 %; MCH 31.9 pg (27.0-33.0); MCHC 31.3 % (32.0-36.0); MCV 102 fL (80-95); Neutrophils % 65.3 %; RDW 14.6 % (11.8-14.1); RDW-SD 55.6 fL; WBC 3.17 10^3/uL (4.4-10.8)
[2024-04-20 07:47] LABS: CREATININE 2.2 mg/dL (0.70-1.30); Estimated GFR 32.23 (mL/min/1.73m2)
[2024-04-20 07:48] LABS: C-Reactive Protein < 0.50 mg/dL (<or=0.5)
[2024-04-20 07:53] VITALS: BP 113/70; PULSE 60; RESP 18; TEMP 36.6; O2SAT 100
[2024-04-20] MEDS: IMMUNE GLOBULIN 10 GM/100 ML BTL IVPB (07:53)
[2024-04-20 07:57] LABS: Platelet Count 33 10^3/uL (130-400)
[2024-04-20 07:59] LABS: Creatine Kinase 113 U/L (39-308)
[2024-04-20 08:10] VITALS: BP 118/72; PULSE 78; RESP 18; TEMP 36.6; O2SAT 100
[2024-04-20 08:35] VITALS: BP 116/72; PULSE 57; RESP 17; TEMP 36.6; O2SAT 100
[2024-04-20] MEDS: IMMUNE GLOBULIN 20 GM/200 ML BTL IVPB (08:41)
[2024-04-20] MEDS: Normal Saline Flush 10 ML SYR IVP (08:42)
[2024-04-20 09:08] VITALS: BP 120/68; PULSE 59; RESP 18; TEMP 35.6; O2SAT 100
[2024-04-20] MEDS: IMMUNE GLOBULIN 40 GM/400 ML BTL IVPB ×2 (09:29→10:28)
[2024-04-20 09:34] VITALS: BP 130/81; PULSE 59; RESP 18; TEMP 36.9; O2SAT 100
[2024-04-21] MEDS: IMMUNE GLOBULIN 10 GM/100 ML BTL IVPB (07:56)
[2024-04-21] MEDS: Normal Saline Flush 10 ML SYR IVP (07:56)
[2024-04-21 08:00] VITALS: BP 124/74; PULSE 62; RESP 17; TEMP 36.8; O2SAT 100
[2024-04-21 08:15] VITALS: BP 118/77; PULSE 59; RESP 17; TEMP 36.7; O2SAT 100
[2024-04-21 08:30] VITALS: BP 126/74; PULSE 59; RESP 17; TEMP 37; O2SAT 100
[2024-04-21] MEDS: IMMUNE GLOBULIN 20 GM/200 ML BTL IVPB (08:44)
[2024-04-21 09:00] VITALS: BP 126/74; PULSE 65; RESP 17; TEMP 36.6; O2SAT 100
[2024-04-21 09:30] VITALS: BP 131/76; PULSE 61; RESP 17; TEMP 36.7; O2SAT 100
[2024-04-21] MEDS: IMMUNE GLOBULIN 40 GM/400 ML BTL IVPB ×2 (09:33→10:28)
[2024-05-05 07:23] LABS: Abs Immature Grans 0.01 10^3/uL (0.0-0.06); Absolute Basophil Count 0.04 10^3/uL (0.0-0.2); Absolute Eosinophil Count 0.28 10^3/uL (0.0-0.7); Absolute Lymphocyte Count 0.39 10^3/uL (1.2-3.4); Absolute Monocyte Count 0.32 10^3/uL (0.1-0.8); Basophils % 1.4 %; Eosinophils % 9.5 %; HCT 38.2 % (40.0-50.0); HGB 12.1 g/dL (13.5-17.5); Immature Grans % 0.3 %; Lymphocytes % 13.3 %; MCHC 31.7 % (32.0-36.0); MCV 101 fL (80-95); MPV 13.3 fL (8.0-11.0); Monocytes % 10.9 %; Neutrophils % 64.6 %; RBC 3.78 10^6/uL (4.36-5.78); RDW 14.6 % (11.8-14.1); RDW-SD 54.7 fL; WBC 2.94 10^3/uL (4.4-10.8)
[2024-05-05 07:26] LABS: ESR 45 mm/hr (0-20)
[2024-05-05 07:30] LABS: CREATININE 2.2 mg/dL (0.70-1.30); Estimated GFR 32.23 (mL/min/1.73m2)
[2024-05-05 07:38] LABS: Platelet Count 38 10^3/uL (130-400)
[2024-05-05 07:39] LABS: Diff Comment Diff Reviewed; RBC Morphology Normal
[2024-05-05] MEDS: Normal Saline Flush 10 ML SYR IVP (08:24)
== END 2024-05-09 23:59 | disposition home or self-care (01) ==
LOC: INF 01:51
PROVIDERS: Nurse Practitioner Adult Health; Podiatrist; PCP Family Medicine; Visit Provider Internal Medicine
DX: D50.9 Iron deficiency anemia, unspecified (principal); D63.1 Anemia in chronic kidney disease; Z79.52 Long term (current) use of systemic steroids; M60.9 Myositis, unspecified
CPT/HCPCS: 36591; 82550; 85652; 96365; 96366; 96372; 82565; 85025; 86140; J0881; J1459

== ENCOUNTER 2024-05-11 02:24 | Outpatient (CLI) | payer MEDICARE, SELFPAY ==
--- NOTE | 2024-05-11 08:30 | DI.US_ITS ---
APPROVED REPORT EXAM: Comprehensive 2D, Doppler, and color-flow Echocardiogram Patient Location: Out-Patient Damage Prevention Coordinator: Darryl Gongora RDCS (AE) Indications: s/p TAVR Conclusion Dilated left ventricle. EF is 25 to 30% with global hypokinesis Moderately enlarged right ventricle Both atria are moderately dilated Aortic valve is sclerotic and trileaflet with mild to moderate aortic stenosis. Peak gradient is 35, mean 21 mmHg. Calculated aortic valve area is 1.1 cm??. There is mild aortic regurgitation Mildly thickened mitral leaflets, mild mitral regurgitation Mild tricuspid regurgitation. Estimated right ventricular systolic pressure is 21 mmHg Wall motion Left Ventricle Left ventricle is moderately dilated. Left ventricular systolic function is decreased. There is edinson l left ventricular wall thickness. There is global hypokinesis of the left ventricle. There is no sparkle tricular septal defect visualized. LVEF is 25-30%. Right Ventricle Right ventricle is moderately dilated. Right ventricular systolic function is grossly normal. Atria Left atrium is moderately dilated. Right atrium is moderately dilated. The interatrial septum is inta ct with no evidence for an atrial septal defect. Aortic Valve Aortic valve is calcified. Aortic valve is probably trileaflet. Mild to moderate aortic stenosis. Hig hest mean aortic valve gradient is 21.01 mmHg. Peak aortic valve gradient is 34.39 mmHg. Calculated A VA by the continuity equation is 1.1 cm2. Mild aortic regurgitation. Mitral Valve Mitral valve leaflets are mildly thickened. No evidence of mitral valve stenosis. Mild mitral regurgi tation. Tricuspid Valve The tricuspid valve is normal in structure. There is no tricuspid valve stenosis. Mild tricuspid regu rgitation. The RVSP is 20.8mmHg. Pulmonic Valve The pulmonary valve is normal in structure. There is no pulmonic valvular stenosis. Trace pulmonic re gurgitation. Great Vessels The aortic root is normal in size. The ascending aorta is normal in size. Aortic arch is normal in ca liber. IVC is normal in size and collapses >50% with inspiration. Pericardium There is no pericardial effusion. 2D Dimensions IVSD d PLAX 0.92 cm M: 0.6-1.2 Ao Root d 3.05 cm M: 3.1 - 3.7 LVPW d PLAX 0.91 cm M: 0.6 - 1.2 Ao Asc Diam d 3.36 cm M: 2.6 - 3.4 LVID d PLAX 7.11 cm M: 4.2 - 5.8 LVDs 6.08 cm M: 2.5 - 4.0 LV EF Teichholz 30.0 % FS 14.53 % LV EDV (Teich) 265.0 mL LV ESV (Teich) 185.6 mL Stroke Vol Index (Teich) 34.97 M-Mode TAPSE 2.14 cm (M/F) >1.7 Auto EF LV EDV A4C 246.1 mL LV EDV A2C 223.1 mL LV EDV BP 235.4 mL LV ESV A4C 180.8 mL LV ESV A2C 156.9 mL LV ESV BP 168.7 mL LVEF(%) A4C 26.5 % LVEF(%) A2C 29.7 % LVEF(%) BP 28.3 % LV SV A4C 65.3 ml LV SV A2C 66.3 ml LV SV BP 66.7 ml LV CO A4C 3.9 L/min LV CO A2C 4.0 L/min LV CO BP 4.0 L/min HR A4C 59.80 BPM HR A2C 60.28 BPM LV EDV Index (BP) LA Volume LA Length A4C 6.8 cm LA Length A2C 5.2 cm LA Area A4C s 29.71 cm2 LA Area A2C s 22.18 cm2 LA Vol A4C A-L 110.20 mL LA Vol A2C A-L 80.49 mL LA Vol Biplane A-L 107.8 mL LA Vol/BSA A4C A-L LA Vol/BSA A2C A-L LA Vol/BSA BP A-L 47.5 mL/m2 LA Vol A4C MOD 99.9 mL LA Vol A2C MOD 75.8 mL LA Vol BP MOD 99.0 mL RA Volume RA Area A4C 13.8 cm2 RA ESV A4C (A-L) 37.6mL RA Vol/BSA A4C A-L RA Length A4C 4.3 cm RA ESV A4C (MOD) 36.9mL LV Diastology MV E' medial 0.042 (>0.07 m/s) MV E Vmax 1.06 (0.4-1.3 m/s) MV E/E' MED 25.17 (<14) MV A Vmax 0.30 (0.4-1.3 m/s) MV E' lateral 0.039 (>0.1 m/s) E/A Ratio 3.5 MV E/E' LAT 27.13 (<14) MV E' Average 0.041 m/s MV E/E'(average) 26.11 Aortic Valve AoV Vmax 2.93 m/s LVOT Vmax 1.17 m/s AoV Peak Grad 34.4 mmHg LVOT Peak Grad 5.4 mmHg AoV Area (Vmax) 1.15 cm2 LVOT VTI 0.285 m AoV VTI 0.746 m LVOT Mean Grad 3.4 mmHg AoV Mean Volodymyr. 2.15 m/s LVOT SV 82.03 mL AoV Mean Grad 21.0 mmHg LVOT Diam s 1.90 cm AoV Area (VTI) 1.10 cm2 AV Regurg Peak Gr. 34.39 mmHg Velocity Ratio 0.40 Mitral Valve MV DT 111 (160-240 msec) MV Vmax TIPS 1.18 m/s MV Mean Grad 1.6 (<2mmHg) MV VTI 0.314 m Pulmonary Valve PV Vmax 1.03 (0.5-1.5 m/s) RVOT Vmax 0.73 m/s PV Peak Grad 4.3 mmHg RVOT Peak Gr. 2.1 mmHg PV Mean Volodymyr 0.80 m/s RVOT VTI 0.153 m PV Mean Grad 2.8 mmHg RVOT Mean Gr. 1.2 mmHg Tricuspid Valve RA Pressure 3.00 mmHg TR Vmax 2.11 m/s TR Peak Grad 17.8 mmHg RVSP (TR) 20.8 mmHg
== END 2024-05-11 02:44 ==
LOC: DI 02:25
PROVIDERS: PCP Family Medicine; Visit Provider Internal Medicine Cardiovascular Disease
DX: I35.0 Nonrheumatic aortic (valve) stenosis (principal); I77.810 Thoracic aortic ectasia; I36.0 Nonrheumatic tricuspid (valve) stenosis
CPT/HCPCS: 93306

== ENCOUNTER 2024-06-01 02:13 | Outpatient (RCR) | payer MEDICARE, SELFPAY ==
[2024-05-10 00:27] VITALS: BP 131/74; PULSE 59; RESP 17; TEMP 36.4
[2024-05-18] VITALS (7 sets, daily range): BP systolic 95–138; BP diastolic 56–79; PULSE 55–60; RESP 17–18; TEMP 35.2–36.8; O2SAT 98–100
[2024-05-18 07:23] LABS: Abs Immature Grans 0.01 10^3/uL (0.0-0.06); Absolute Basophil Count 0.03 10^3/uL (0.0-0.2); Absolute Eosinophil Count 0.26 10^3/uL (0.0-0.7); Absolute Lymphocyte Count 0.41 10^3/uL (1.2-3.4); Absolute Monocyte Count 0.28 10^3/uL (0.1-0.8); Absolute Neutrophil Count 2.19 10^3/uL (1.2-6.7); Basophils % 0.9 %; Eosinophils % 8.2 %; HCT 37.2 % (40.0-50.0); HGB 11.8 g/dL (13.5-17.5); Immature Grans % 0.3 %; Lymphocytes % 12.9 %; MCH 31.9 pg (27.0-33.0); MCHC 31.7 % (32.0-36.0); MCV 101 fL (80-95); MPV 10.2 fL (8.0-11.0); Monocytes % 8.8 %; Neutrophils % 68.9 %; RDW 14.6 % (11.8-14.1); WBC 3.18 10^3/uL (4.4-10.8)
[2024-05-18 07:37] LABS: C-Reactive Protein < 0.50 mg/dL (<or=0.5)
[2024-05-18 07:40] LABS: CREATININE 2.6 mg/dL (0.70-1.30); Creatine Kinase 135 U/L (39-308); Estimated GFR 26.37 (mL/min/1.73m2)
[2024-05-18 07:41] LABS: ESR 29 mm/hr (0-20)
[2024-05-18 07:42] LABS: Diff Comment PLT Morph Reviewed; Platelet Count 35 10^3/uL (130-400); RBC Morphology Normal
[2024-05-18] MEDS: IMMUNE GLOBULIN 10 GM/100 ML BTL IVPB (08:14)
[2024-05-18] MEDS: Normal Saline Flush 10 ML SYR IVP (08:14)
[2024-05-18] MEDS: IMMUNE GLOBULIN 20 GM/200 ML BTL IVPB (08:58)
[2024-05-18] MEDS: IMMUNE GLOBULIN 40 GM/400 ML BTL IVPB ×2 (09:45→10:59)
[2024-05-19] VITALS (7 sets, daily range): BP systolic 95–128; BP diastolic 52–76; PULSE 60–67; RESP 17–18; TEMP 36.4–37; O2SAT 98–100
[2024-05-19] MEDS: Normal Saline Flush 10 ML SYR IVP (07:08)
[2024-05-19] MEDS: IMMUNE GLOBULIN 10 GM/100 ML BTL IVPB (07:37)
[2024-05-19] MEDS: IMMUNE GLOBULIN 20 GM/200 ML BTL 2.21 GM IVPB (08:26)
[2024-05-19] MEDS: IMMUNE GLOBULIN 40 GM/400 ML BTL IVPB ×2 (09:19→10:09)
[2024-06-01 07:27] VITALS: BP 116/73; PULSE 61; RESP 17; TEMP 36.6; O2SAT 100
[2024-06-01] MEDS: Normal Saline Flush 10 ML SYR IVP (07:28)
[2024-06-01 07:32] LABS: Abs Immature Grans 0.01 10^3/uL (0.0-0.06); Absolute Basophil Count 0.04 10^3/uL (0.0-0.2); Absolute Eosinophil Count 0.33 10^3/uL (0.0-0.7); Absolute Lymphocyte Count 0.43 10^3/uL (1.2-3.4); Absolute Monocyte Count 0.34 10^3/uL (0.1-0.8); Absolute Neutrophil Count 2.22 10^3/uL (1.2-6.7); Basophils % 1.2 %; Eosinophils % 9.8 %; HCT 37.6 % (40.0-50.0); Immature Grans % 0.3 %; Lymphocytes % 12.8 %; MCH 32.3 pg (27.0-33.0); MCHC 31.9 % (32.0-36.0); MCV 101 fL (80-95); MPV 11.9 fL (8.0-11.0); Monocytes % 10.1 %; Neutrophils % 65.8 %; RBC 3.72 10^6/uL (4.36-5.78); RDW 15.4 % (11.8-14.1); RDW-SD 57.2 fL; WBC 3.37 10^3/uL (4.4-10.8)
[2024-06-01 07:43] LABS: CREATININE 2.3 mg/dL (0.70-1.30); Estimated GFR 30.55 (mL/min/1.73m2)
[2024-06-01 07:45] LABS: Platelet Count 42 10^3/uL (130-400)
== END 2024-06-09 23:59 | disposition home or self-care (01) ==
LOC: INF 02:13
PROVIDERS: Nurse Practitioner Adult Health; Podiatrist; PCP Family Medicine; Visit Provider Internal Medicine
DX: M86.9 Osteomyelitis, unspecified; M60.9 Myositis, unspecified; D61.818 Other pancytopenia; D50.9 Iron deficiency anemia, unspecified
CPT/HCPCS: 36591; 82550; 85652; 96365; 96366; 96372; 96523; 82565; 85025; 86140; J0881; J1459

== ENCOUNTER 2024-07-10 00:31 | Outpatient (RCR) | payer MEDICARE, SELFPAY ==
[2024-06-10 00:29] VITALS: BP 131/74; PULSE 59; RESP 17; TEMP 36.4
[2024-06-15 08:01] LABS: Abs Immature Grans 0.01 10^3/uL (0.0-0.06); Absolute Basophil Count 0.05 10^3/uL (0.0-0.2); Absolute Eosinophil Count 0.27 10^3/uL (0.0-0.7); Absolute Lymphocyte Count 0.36 10^3/uL (1.2-3.4); Absolute Monocyte Count 0.23 10^3/uL (0.1-0.8); Absolute Neutrophil Count 2.24 10^3/uL (1.2-6.7); Basophils % 1.6 %; Eosinophils % 8.5 %; HCT 36.3 % (40.0-50.0); HGB 11.6 g/dL (13.5-17.5); Immature Grans % 0.3 %; Lymphocytes % 11.4 %; MCH 32.3 pg (27.0-33.0); MCV 101 fL (80-95); Monocytes % 7.3 %; Neutrophils % 70.9 %; Platelet Count 42 10^3/uL (130-400); RBC 3.59 10^6/uL (4.36-5.78); RDW 15.2 % (11.8-14.1); WBC 3.16 10^3/uL (4.4-10.8)
[2024-06-15 08:05] VITALS: BP 106/53; PULSE 99; RESP 17; TEMP 36.5; O2SAT 99
[2024-06-15] MEDS: IMMUNE GLOBULIN 10 GM/100 ML BTL IVPB (08:15)
[2024-06-15 08:21] LABS: MPV 10.6 fL (8.0-11.0)
[2024-06-15 08:23] LABS: CREATININE 2.3 mg/dL (0.70-1.30); Creatine Kinase 152 U/L (39-308); Estimated GFR 30.55 (mL/min/1.73m2)
[2024-06-15 08:26] LABS: C-Reactive Protein < 0.50 mg/dL (<or=0.5)
[2024-06-15 08:35] VITALS: BP 114/66; PULSE 60; RESP 17; TEMP 36.6; O2SAT 99
[2024-06-15 08:50] VITALS: BP 117/78; PULSE 59; RESP 17; TEMP 36.6; O2SAT 100
[2024-06-15] MEDS: IMMUNE GLOBULIN 20 GM/200 ML BTL IVPB (09:02)
[2024-06-15] MEDS: Normal Saline Flush 10 ML SYR IVP (09:02)
[2024-06-15 09:24] VITALS: BP 113/58; PULSE 60; RESP 18; TEMP 36.7; O2SAT 100
[2024-06-15] MEDS: IMMUNE GLOBULIN 40 GM/400 ML BTL IVPB ×2 (09:51→10:49)
[2024-06-15 09:54] VITALS: BP 126/75; PULSE 61; RESP 18; TEMP 36.6; O2SAT 100
[2024-06-16 07:41] LABS: Iron 80 ug/dL (65-175); Total Iron Binding Capacity 288 ug/dL (250-450); Transferrin Sat 28 % (20-55)
[2024-06-16] MEDS: IMMUNE GLOBULIN 10 GM/100 ML BTL IVPB (07:44)
[2024-06-16 07:45] VITALS: BP 102/63; PULSE 61; TEMP 36.6; O2SAT 96
[2024-06-16] MEDS: Normal Saline Flush 10 ML SYR IVP (07:54)
[2024-06-16 08:00] VITALS: BP 107/66; PULSE 65; TEMP 36.6; O2SAT 97
[2024-06-16 08:15] VITALS: BP 109/67; PULSE 62; TEMP 36.5; O2SAT 100
[2024-06-16] MEDS: IMMUNE GLOBULIN 20 GM/200 ML BTL IVPB (08:34)
[2024-06-16 08:45] VITALS: BP 119/77; PULSE 61; TEMP 36.4; O2SAT 100
[2024-06-16 09:15] VITALS: BP 121/77; PULSE 63; TEMP 36.5; O2SAT 99
[2024-06-16] MEDS: IMMUNE GLOBULIN 40 GM/400 ML BTL IVPB ×2 (09:20→10:17)
[2024-06-29] MEDS: Normal Saline Flush 10 ML SYR IVP (07:17)
[2024-06-29 07:58] LABS: Abs Immature Grans 0.01 10^3/uL (0.0-0.06); Absolute Basophil Count 0.03 10^3/uL (0.0-0.2); Absolute Lymphocyte Count 0.38 10^3/uL (1.2-3.4); Absolute Neutrophil Count 1.92 10^3/uL (1.2-6.7); Eosinophils % 10.2 %; HCT 36.2 % (40.0-50.0); HGB 11.4 g/dL (13.5-17.5); Immature Grans % 0.3 %; Lymphocytes % 12.9 %; MCH 32.2 pg (27.0-33.0); MCHC 31.5 % (32.0-36.0); MCV 102 fL (80-95); MPV 12.5 fL (8.0-11.0); Monocytes % 10.2 %; Neutrophils % 65.4 %; RBC 3.54 10^6/uL (4.36-5.78); RDW 15.1 % (11.8-14.1); RDW-SD 57.5 fL; WBC 2.94 10^3/uL (4.4-10.8)
[2024-06-29 08:10] LABS: CREATININE 2.3 mg/dL (0.70-1.30); Estimated GFR 30.55 (mL/min/1.73m2)
[2024-06-29 08:15] LABS: Diff Comment Diff Reviewed; Platelet Count 41 10^3/uL (130-400); RBC Morphology Normal
[2024-07-09 07:10] VITALS: BP 106/65; PULSE 59; RESP 18; TEMP 36.9; O2SAT 97
[2024-07-09] MEDS: IMMUNE GLOBULIN 10 GM/100 ML BTL IVPB (07:28)
[2024-07-09] MEDS: Normal Saline Flush 10 ML SYR IVP (07:28)
[2024-07-09 07:37] LABS: Absolute Basophil Count 0.04 10^3/uL (0.0-0.2); Absolute Eosinophil Count 0.26 10^3/uL (0.0-0.7); Absolute Lymphocyte Count 0.37 10^3/uL (1.2-3.4); Absolute Monocyte Count 0.27 10^3/uL (0.1-0.8); Absolute Neutrophil Count 1.94 10^3/uL (1.2-6.7); Basophils % 1.4 %; HCT 37.8 % (40.0-50.0); Lymphocytes % 12.8 %; MCH 32.3 pg (27.0-33.0); MCHC 31.7 % (32.0-36.0); MCV 102 fL (80-95); MPV 12.3 fL (8.0-11.0); Monocytes % 9.4 %; Neutrophils % 67.4 %; RBC 3.71 10^6/uL (4.36-5.78); RDW 14.9 % (11.8-14.1); RDW-SD 55.8 fL; WBC 2.88 10^3/uL (4.4-10.8)
[2024-07-09 07:47] LABS: Platelet Count 42 10^3/uL (130-400)
[2024-07-09 07:48] LABS: Diff Comment Diff Reviewed; RBC Morphology Normal
[2024-07-09 07:50] VITALS: BP 93/49; PULSE 57; RESP 18; TEMP 36.6; O2SAT 97
[2024-07-09 07:54] LABS: C-Reactive Protein 0.58 mg/dL (<or=0.5); CREATININE 2.2 mg/dL (0.70-1.30); Creatine Kinase 122 U/L (39-308); Estimated GFR 32.23 (mL/min/1.73m2)
[2024-07-09 08:05] VITALS: BP 94/52; PULSE 65; RESP 17; TEMP 36; O2SAT 96
[2024-07-09] MEDS: IMMUNE GLOBULIN 20 GM/200 ML BTL IVPB (08:13)
[2024-07-09 08:35] VITALS: BP 111/69; PULSE 63; RESP 17; TEMP 36.5; O2SAT 95
[2024-07-09] MEDS: IMMUNE GLOBULIN 40 GM/400 ML BTL IVPB ×2 (09:10→09:59)
[2024-07-10 07:18] VITALS: BP 108/55; PULSE 63; RESP 16; TEMP 36.7; O2SAT 98
[2024-07-10] MEDS: IMMUNE GLOBULIN 20 GM/200 ML BTL IVPB (08:07)
[2024-07-10 08:17] VITALS: BP 105/57; PULSE 53; RESP 16; TEMP 36.6; O2SAT 97
[2024-07-10 08:30] VITALS: BP 133/72; PULSE 58; RESP 17; TEMP 36.6; O2SAT 100
[2024-07-10] MEDS: IMMUNE GLOBULIN 10 GM/100 ML BTL 3.33 GM IVPB (09:11)
[2024-07-10 09:12] VITALS: BP 118/71; PULSE 58; RESP 16; TEMP 37; O2SAT 99
[2024-07-10] MEDS: IMMUNE GLOBULIN 40 GM/400 ML BTL IVPB ×2 (09:29→10:33)
[2024-07-10 09:47] VITALS: BP 132/79; PULSE 63; RESP 14; TEMP 36.8; O2SAT 99
[2024-07-10 11:02] VITALS: BP 134/81; PULSE 64; RESP 14; TEMP 36.7; O2SAT 99
[2024-07-10] MEDS: Normal Saline Flush 10 ML SYR IVP (11:59)
== END 2024-07-10 23:59 | disposition home or self-care (01) ==
LOC: INF 00:31
PROVIDERS: Nurse Practitioner Adult Health; PCP Family Medicine; Visit Provider Internal Medicine
DX: D50.9 Iron deficiency anemia, unspecified (principal); M60.9 Myositis, unspecified; D61.818 Other pancytopenia; Z45.2 Encounter for adjustment and management of vascular access device
CPT/HCPCS: 36591; 82550; 96365; 96366; 96372; 82565; 83540; 83550; 85025; 86140; J0881; J1459

== ENCOUNTER 2024-07-22 08:20 | Outpatient (CLI) | payer MEDICARE, SELFPAY ==
--- NOTE | 2024-07-22 08:15 | RT.EKG_ITS ---
APPROVED REPORT Exam: Resting ECG Reason for Exam: cardiac evaluation Patient Location: O HR:63 bpm ECG Measurements Heart Rate 63 AXIS WA 175 P 70 QRSd 139 QRS -26 QT 456 T 199 QTc 467 Conclusion Sinus rhythm...normal P axis, V-rate 50- 99 Probable left atrial enlargement...P >50mS, <-0.10mV V1 Left bundle branch block...QRSd>120, broad/notched R
== END 2024-07-22 08:21 | disposition home or self-care (01) ==
LOC: DI.CARD 08:20
PROVIDERS: PCP Family Medicine; Visit Provider Registered Nurse
DX: I51.89 Other ill-defined heart diseases (principal); I35.0 Nonrheumatic aortic (valve) stenosis
CPT/HCPCS: 93010

== ENCOUNTER → 2024-07-22 09:42 | Outpatient (BNVA) | payer MEDICARE, SELFPAY | PROVIDERS: PCP Family Medicine; Referring Provider Family Medicine; Visit Provider Registered Nurse | DX: I50.20 Unspecified systolic (congestive) heart failure (principal); I35.0 Nonrheumatic aortic (valve) stenosis | CPT/HCPCS: 93005; 99214 ==

== ENCOUNTER 2024-08-05 02:55 | Outpatient (RCR) | payer MEDICARE, SELFPAY ==
[2024-07-28] MEDS: Normal Saline Flush 10 ML SYR IVP (09:53)
[2024-07-28 10:09] LABS: Abs Immature Grans 0.01 10^3/uL (0.0-0.06); Absolute Basophil Count 0.04 10^3/uL (0.0-0.2); Absolute Eosinophil Count 0.33 10^3/uL (0.0-0.7); Absolute Lymphocyte Count 0.42 10^3/uL (1.2-3.4); Absolute Monocyte Count 0.25 10^3/uL (0.1-0.8); Absolute Neutrophil Count 2.58 10^3/uL (1.2-6.7); Basophils % 1.1 %; CREATININE 2.5 mg/dL (0.70-1.30); Eosinophils % 9.1 %; Estimated GFR 27.64 (mL/min/1.73m2); HCT 36.6 % (40.0-50.0); HGB 11.6 g/dL (13.5-17.5); Immature Grans % 0.3 %; Lymphocytes % 11.6 %; MCH 32.5 pg (27.0-33.0); MCHC 31.7 % (32.0-36.0); MCV 103 fL (80-95); MPV 12.2 fL (8.0-11.0); Monocytes % 6.9 %; RBC 3.57 10^6/uL (4.36-5.78); RDW 14.6 % (11.8-14.1); RDW-SD 55.4 fL; WBC 3.63 10^3/uL (4.4-10.8)
[2024-07-28 10:40] LABS: Platelet Count 43 10^3/uL (130-400)
[2024-07-28 10:41] LABS: Diff Comment PLT Morph Reviewed; RBC Morphology Normal
[2024-08-05] MEDS: Normal Saline Flush 10 ML SYR IVP (08:08)
[2024-08-05 08:15] LABS: Abs Immature Grans 0.01 10^3/uL (0.0-0.06); Absolute Basophil Count 0.04 10^3/uL (0.0-0.2); Absolute Eosinophil Count 0.28 10^3/uL (0.0-0.7); Absolute Lymphocyte Count 0.39 10^3/uL (1.2-3.4); Absolute Monocyte Count 0.27 10^3/uL (0.1-0.8); Absolute Neutrophil Count 2.42 10^3/uL (1.2-6.7); Basophils % 1.2 %; Eosinophils % 8.2 %; HCT 32.7 % (40.0-50.0); HGB 10.3 g/dL (13.5-17.5); Immature Grans % 0.3 %; Lymphocytes % 11.4 %; MCH 32.4 pg (27.0-33.0); MCHC 31.5 % (32.0-36.0); MCV 103 fL (80-95); MPV 12.3 fL (8.0-11.0); Monocytes % 7.9 %; RBC 3.18 10^6/uL (4.36-5.78); RDW 14.8 % (11.8-14.1); WBC 3.41 10^3/uL (4.4-10.8)
[2024-08-05 08:42] LABS: Iron 47 ug/dL (65-175); Total Iron Binding Capacity 285 ug/dL (250-450); Transferrin Sat 16 % (20-55)
[2024-08-05 08:47] LABS: ALT 47 U/L (16-63); AST 58 U/L (15-37); Albumin 2.8 g/dL (3.4-5.0); Alkaline Phosphatase 179 U/L (46-116); Anion Gap 6.1 mmol/L (3-11); CO2 28.9 mmol/L (21.0-32.0); CREATININE 2.3 mg/dL (0.70-1.30); Chloride 108 mmol/L (98-107); Diff Comment PLT Morph Reviewed; Estimated GFR 30.55 (mL/min/1.73m2); Ferritin 307 ng/mL (26-388); Glucose 164 mg/dL (74-106); Platelet Count 46 10^3/uL (130-400); Potassium 4.9 mmol/L (3.5-5.1); RBC Morphology Normal; Sodium 143 mmol/L (136-145); Total Protein 7.3 g/dL (6.4-8.2)
[2024-08-05 08:54] LABS: BUN 105 mg/dL (7-18)
== END 2024-08-07 23:59 | disposition home or self-care (01) ==
LOC: INF 02:55
PROVIDERS: Internal Medicine Hematology & Oncology; PCP Family Medicine; Visit Provider Nurse Practitioner Adult Health
DX: D50.9 Iron deficiency anemia, unspecified (principal); N18.31 Chronic kidney disease, stage 3a; D63.1 Anemia in chronic kidney disease
CPT/HCPCS: 36591; 80053; 82565; 82728; 83540; 83550; 85025; J0881

== ENCOUNTER 2024-08-25 00:46 | Outpatient (CLI) | payer MEDICARE, SELFPAY ==
--- NOTE | 2024-08-25 09:00 | DI.RAD_ITS ---
Exam(s) XR TOE RT GREAT EXAM: XR TOE RT GREAT CLINICAL HISTORY: Proximal Phalanx, osteomyelitis, M86.9. TECHNIQUE: 2D digital imaging was performed. COMPARISON: CR XR FOOT RT COMPLETE from 03/09/2024 MR MR LOWER EXTREMITY RT WO/W from 03/31/2024 CR XR FOOT RT COMPLETE from 03/31/2024 CR XR TOE RT GREAT from 04/27/2024 FINDINGS: The lateral view is limited by overlap of the toes. BONES: No acute fracture is present. Resection of the distal aspect of the proximal phalanx again n oted. No definite bony destruction. Smoothly marginated the clip the in the 1st metatarsal head benita ears unchanged. JOINTS: Dorsal dislocation of the distal phalanx of the great toes difficult to appreciate on the cur rent exam due to overlap of the other toes. Hammertoe deformities noted. SOFT TISSUE: Vascular calcifications. Swelling at dorsum of foot. IMPRESSION: Postsurgical resection of distal aspect of the proximal phalanx of the great toe. No definite bony d estruction. DATA REPOSITORY: RADIATION DOSE DELIVERED:
== END 2024-08-25 01:06 ==
LOC: DI 00:46
PROVIDERS: PCP Family Medicine; Visit Provider Podiatrist
DX: M86.9 Osteomyelitis, unspecified (principal); Z98.890 Other specified postprocedural states
CPT/HCPCS: 11719; 28010; 97597; 73660

== ENCOUNTER 2024-09-07 01:29 | Outpatient (RCR) | payer MEDICARE, SELFPAY ==
[2024-08-10 07:08] LABS: Abs Immature Grans 0.01 10^3/uL (0.0-0.06); Absolute Basophil Count 0.04 10^3/uL (0.0-0.2); Absolute Eosinophil Count 0.32 10^3/uL (0.0-0.7); Absolute Monocyte Count 0.23 10^3/uL (0.1-0.8); Absolute Neutrophil Count 2.29 10^3/uL (1.2-6.7); Basophils % 1.2 %; Eosinophils % 9.7 %; HCT 33.7 % (40.0-50.0); HGB 10.8 g/dL (13.5-17.5); Immature Grans % 0.3 %; Lymphocytes % 12.2 %; MCH 32.9 pg (27.0-33.0); MCV 103 fL (80-95); Neutrophils % 69.6 %; RBC 3.28 10^6/uL (4.36-5.78); RDW 14.8 % (11.8-14.1); RDW-SD 56.2 fL; WBC 3.29 10^3/uL (4.4-10.8)
[2024-08-10 07:19] LABS: Diff Comment Diff Reviewed; Platelet Count 45 10^3/uL (130-400); RBC Morphology Normal
[2024-08-10 07:21] LABS: C-Reactive Protein 0.57 mg/dL (<or=0.5); CREATININE 2.4 mg/dL (0.70-1.30); Creatine Kinase 102 U/L (39-308); Estimated GFR 29.03 (mL/min/1.73m2)
[2024-08-10] MEDS: Normal Saline Flush 10 ML SYR IVP ×2 (07:26→07:43)
[2024-08-10] MEDS: IMMUNE GLOBULIN 10 GM/100 ML BTL IVPB (07:42)
[2024-08-10 07:47] VITALS: BP 128/66; PULSE 63; RESP 18; TEMP 36.7; O2SAT 99
[2024-08-10 08:00] VITALS: BP 90/47; PULSE 56; RESP 17; TEMP 36.5; O2SAT 99
[2024-08-10 08:15] VITALS: BP 102/63; PULSE 57; RESP 17; TEMP 36.3; O2SAT 100
[2024-08-10] MEDS: IMMUNE GLOBULIN 20 GM/200 ML BTL IVPB (08:27)
[2024-08-10 08:45] VITALS: BP 97/54; PULSE 54; RESP 18; TEMP 36; O2SAT 98
[2024-08-10 09:15] VITALS: BP 121/74; PULSE 58; RESP 17; TEMP 36.7; O2SAT 100
[2024-08-10] MEDS: IMMUNE GLOBULIN 40 GM/400 ML BTL IVPB ×2 (09:18→10:12)
[2024-08-10 09:48] VITALS: BP 121/72; PULSE 62; RESP 17; TEMP 36.4; O2SAT 96
[2024-08-11] MEDS: IMMUNE GLOBULIN 10 GM/100 ML BTL IVPB (07:39)
[2024-08-11] MEDS: Normal Saline Flush 10 ML SYR IVP (07:40)
[2024-08-11 07:45] VITALS: BP 133/73; PULSE 72; RESP 18; TEMP 36.7; O2SAT 99
[2024-08-11 08:15] VITALS: BP 91/53; PULSE 72; RESP 17; TEMP 36.5; O2SAT 99
[2024-08-11 08:25] VITALS: BP 106/65; PULSE 72; RESP 17; TEMP 36.5; O2SAT 99
[2024-08-11] MEDS: IMMUNE GLOBULIN 20 GM/200 ML BTL IVPB (08:29)
[2024-08-11 08:55] VITALS: BP 111/65; PULSE 62; RESP 16; TEMP 36.5; O2SAT 99
[2024-08-11] MEDS: IMMUNE GLOBULIN 40 GM/400 ML BTL IVPB ×2 (09:18→10:13)
[2024-08-11 09:25] VITALS: BP 102/56; PULSE 71; RESP 17; TEMP 36.4; O2SAT 99
[2024-08-24] MEDS: Normal Saline Flush 10 ML SYR IVP (07:26)
[2024-08-24 07:29] LABS: HGB 10.6 g/dL (13.5-17.5); MCHC 32.1 % (32.0-36.0); MCV 103 fL (80-95); MPV 12.4 fL (8.0-11.0); RBC 3.21 10^6/uL (4.36-5.78); RDW 14.7 % (11.8-14.1); RDW-SD 55.9 fL; WBC 2.86 10^3/uL (4.4-10.8)
[2024-08-24 07:37] LABS: CREATININE 2.2 mg/dL (0.70-1.30); Estimated GFR 32.23 (mL/min/1.73m2)
[2024-08-24 07:40] LABS: Platelet Count 41 10^3/uL (130-400)
[2024-08-24 10:33] LABS: Lymphocytes % 11.6 %; Neutrophils % 64.7 %
[2024-08-24 10:34] LABS: Abs Immature Grans 0.01 10^3/uL (0.0-0.06); Absolute Basophil Count 0.04 10^3/uL (0.0-0.2); Absolute Eosinophil Count 0.32 10^3/uL (0.0-0.7); Absolute Lymphocyte Count 0.33 10^3/uL (1.2-3.4); Absolute Neutrophil Count 1.84 10^3/uL (1.2-6.7); Basophils % 1.4 %; Eosinophils % 11.3 %; Immature Grans % 0.4 %; Monocytes % 10.6 %
[2024-09-07] MEDS: Normal Saline Flush 10 ML SYR IVP ×2 (07:00→07:16)
[2024-09-07 07:25] LABS: Abs Immature Grans 0.01 10^3/uL (0.0-0.06); Absolute Basophil Count 0.04 10^3/uL (0.0-0.2); Absolute Eosinophil Count 0.37 10^3/uL (0.0-0.7); Absolute Lymphocyte Count 0.39 10^3/uL (1.2-3.4); Absolute Monocyte Count 0.29 10^3/uL (0.1-0.8); Absolute Neutrophil Count 2.23 10^3/uL (1.2-6.7); Basophils % 1.2 %; Eosinophils % 11.1 %; HCT 36.1 % (40.0-50.0); HGB 11.6 g/dL (13.5-17.5); Immature Grans % 0.3 %; Lymphocytes % 11.7 %; MCH 32.9 pg (27.0-33.0); MCHC 32.1 % (32.0-36.0); MCV 102 fL (80-95); MPV 11.8 fL (8.0-11.0); Monocytes % 8.7 %; RBC 3.53 10^6/uL (4.36-5.78); RDW 14.6 % (11.8-14.1); RDW-SD 54.9 fL; WBC 3.33 10^3/uL (4.4-10.8)
[2024-09-07 07:33] LABS: Diff Comment PLT Morph Reviewed; Platelet Count 46 10^3/uL (130-400); RBC Morphology Normal
[2024-09-07 07:38] LABS: C-Reactive Protein 0.86 mg/dL (<or=0.5); CREATININE 2.2 mg/dL (0.70-1.30); Creatine Kinase 123 U/L (39-308); Estimated GFR 32.23 (mL/min/1.73m2)
[2024-09-07 07:44] LABS: Iron 62 ug/dL (65-175); Total Iron Binding Capacity 298 ug/dL (250-450); Transferrin Sat 21 % (20-55)
[2024-09-07 07:55] VITALS: BP 101/62; PULSE 69; RESP 17; TEMP 37.2; O2SAT 97
[2024-09-07 08:10] VITALS: BP 116/68; PULSE 63; RESP 18; TEMP 37; O2SAT 99
[2024-09-07 08:25] VITALS: BP 101/53; PULSE 61; RESP 17; TEMP 36.9; O2SAT 100
[2024-09-07] MEDS: IMMUNE GLOBULIN 20 GM/200 ML BTL 2.2 GM IVPB (08:46)
[2024-09-07 08:55] VITALS: BP 117/58; PULSE 60; RESP 17; TEMP 36.9; O2SAT 99
[2024-09-07 09:25] VITALS: BP 124/65; PULSE 62; RESP 17; TEMP 36.8; O2SAT 98
[2024-09-07] MEDS: IMMUNE GLOBULIN 40 GM/400 ML BTL IVPB (09:28)
[2024-09-07 09:55] VITALS: BP 143/75; PULSE 65; RESP 17; TEMP 36.8; O2SAT 99
[2024-09-07] MEDS: IMMUNE GLOBULIN 40 GM/400 ML BTL 4.4 GM IVPB (10:26)
== END 2024-09-07 23:59 | disposition home or self-care (01) ==
LOC: INF 01:29
PROVIDERS: PCP Family Medicine; Visit Provider Nurse Practitioner Adult Health
DX: D63.1 Anemia in chronic kidney disease; G72.49 Other inflammatory and immune myopathies, not elsewhere classified; Z79.52 Long term (current) use of systemic steroids; N18.30 Chronic kidney disease, stage 3 unspecified; Z79.899 Other long term (current) drug therapy; T46.6X5A Adverse effect of antihyperlipidemic and antiarteriosclerotic drugs, initial encounter
CPT/HCPCS: 36591; 82550; 85027; 96365; 96366; 96372; 82565; 83540; 83550; 85007; 85025; 86140; J0881; J1459

== ENCOUNTER 2024-09-11 13:11 | Outpatient (REF) | payer MEDICARE, SELFPAY ==
[2024-09-11 18:52] LABS: Abs Immature Grans 0.01 10^3/uL (0.0-0.06); Absolute Basophil Count 0.03 10^3/uL (0.0-0.2); Absolute Eosinophil Count 0.21 10^3/uL (0.0-0.7); Absolute Lymphocyte Count 0.33 10^3/uL (1.2-3.4); Absolute Monocyte Count 0.29 10^3/uL (0.1-0.8); Absolute Neutrophil Count 0.98 10^3/uL (1.2-6.7); Basophils % 1.6 %; Eosinophils % 11.4 %; HCT 35.2 % (40.0-50.0); HGB 11.1 g/dL (13.5-17.5); Immature Grans % 0.5 %; Lymphocytes % 17.8 %; MCH 32.4 pg (27.0-33.0); MCHC 31.5 % (32.0-36.0); MCV 103 fL (80-95); Monocytes % 15.7 %; RBC 3.43 10^6/uL (4.36-5.78); RDW 14.6 % (11.8-14.1); RDW-SD 55.1 fL
[2024-09-11 18:57] LABS: ESR 94 mm/hr (0-20)
[2024-09-11 19:10] LABS: C-Reactive Protein 1.46 mg/dL (<or=0.5); NT-proBNP 9408 pg/mL (<300)
[2024-09-11 19:25] LABS: Platelet Count 48 10^3/uL (130-400)
[2024-09-11 19:26] LABS: Diff Comment Agrees w/ Instrument; Macrocytosis 1+
[2024-09-11 19:41] LABS: WBC 1.85 10^3/uL (4.4-10.8)
== END 2024-09-11 13:12 | disposition home or self-care (01) ==
LOC: NCHCN 13:11
PROVIDERS: PCP Family Medicine; Visit Provider Family Medicine
DX: E11.22 Type 2 diabetes mellitus with diabetic chronic kidney disease (principal); R05.9 Cough, unspecified; G72.0 Drug-induced myopathy
CPT/HCPCS: 85652; 83036; 83880; 85025; 86140

== ENCOUNTER 2024-09-12 09:49 | Emergency (ER) | payer MEDICARE, SELFPAY ==
[2024-09-12] VITALS (21 sets, daily range): BP systolic 112–154; BP diastolic 55–95; PULSE 59–73; RESP 2–20; O2SAT 94–100
--- NOTE | 2024-09-12 10:07 | ED.GENADUL_ITS ---
Discharge Plan Disposition Patient Disposition: Home Condition: Stable Discharge Details Clinical Impression: Respiratory infection Primary Care Provider: Jazmine Baer V ED Provider: Richard Palma Home Meds and New Rx's Prescriptions: New prednisone 20 mg tablet 60 mg PO DAILY 4 Days Qty: 12 0RF amoxicillin 875 mg tablet 875 mg PO BID 7 Days Qty: 14 0RF doxycycline hyclate 100 mg tablet 100 mg PO BID Qty: 14 0RF Continued Aranesp (in polysorbate) 60 mcg/mL solution 60 mcg IV Q2W PRN Patient Comments: Through [facility] Outpatient Infusion Venofer 200 mg iron/10 mL solution 300 mg IV .12 weeks PRN Patient Comments: Through [facility] Outpatient Infusion Rx Instructions: administer over 30 mins [place] Saline Gel 1 applic topical QID PRN Rx Instructions: while awake Lyumjev KwikPen U-100 Insulin 100 unit/mL insulin pen 20 unit subcut QACLUNCH furosemide 40 mg tablet 40 mg PO BID Qty: 180 3RF docusate sodium [Colace] 100 mg capsule 100 mg PO TID PRN GAMAGUARD IVIG See Rx Instructions .ROUTE .COMPLEX Rx Instructions: [place] [facility] [place] 2x a month ondansetron [Zofran ODT] 4 mg tablet,disintegrating 4 mg PO BID PRN (DME) blood-glucose meter Kit See Rx Instructions .Route Rx Instructions: As directed colchicine 0.6 mg tablet 0.6 mg PO DIRECTED sodium chloride 0.9 % (flush) Syringe 10 ml IV QWEEK (DME) IV infusion pump accessory Infusion Set See Rx Instructions .Route Rx Instructions: As directed carvedilol 12.5 mg tablet 12.5 mg PO BID Qty: 180 3RF Rx Instructions: must administer with a meal/food multivitamin [Daily Multi-Vitamin] 1 EACH tablet 1 tab PO DAILY aspirin 81 mg Tablet,Delayed Release (Dr/Ec) 81 mg PO DAILY Qty: 100 0RF magnesium oxide 400 mg (241.3 mg magnesium) Tablet 400 mg PO BID Qty: 60 1RF nitroglycerin 0.4 mg tablet, sublingual 0.4 mg sublingual Q5-15M PRNQty: 30 0RF Rx Instructions: do not exceed 3 doses per episode losartan 50 mg tablet 50 mg PO DAILY allopurinol 100 mg tablet 200 mg PO DAILY Qty: 0 0RF insulin glargine [Lantus Solostar U-100 Insulin] 100 unit/mL (3 mL) insulin pen 12 unit subcut DAILY Qty: 0 0RF Patient Comments: 01/16/23 per PCP med record states Per [facility] 07/24/22 RH Discharge Instructions Additional Instructions: Your blood work did not show any significant changes from your baseline. You can use the albuterol inhaler 2 puffs every 4 hours as needed for cou gh/wheezing. If not improving this week follow-up with your primary care provider. If you feel significantly more ill or short of breath return to the emergency department for reevaluation. HPI General Mode of arrival: ambulatory . Date/Time Provider Initiated Documentation: 09/12/24 09:51 . Limitations to Documentation: no limitations . Information obtained by: patient . History of Present Illness 64 year old M presents to the emergency department with the chief complaint of cough, low wbc, described as moderate, Patient started experiencing this week(s) (1) and it has been constant. No relieving factors improve symptom(s), No exacerbating factors reported . Patient notes cough; denies chest pain, fever/chills, nausea/vomiting and shortness of breath. Patient did receive the following treatments prior to arrival, none Related Data Home Medications ?Medication ?Instructions ?Recorded ?Confirmed Gamaguard Ivig See Rx Instructions .Route .COMPLEX 09/18/12 09/12/24 multivitamin (Daily Multi-Vitamin 1 tab PO DAILY 11/23/13 09/12/24 tablet) aspirin 81 mg tablet,delayed 81 mg PO DAILY #100 tabs 04/12/21 09/12/24 release magnesium oxide 400 mg (241.3 mg 400 mg PO BID #60 tabs 04/12/21 09/12/24 magnesium) tablet nitroglycerin 0.4 mg sublingual 0.4 mg sublingual Q5-15M PRN #30 04/12/21 09/12/24 tablet tabs darbepoetin matt in polysorbat 60 60 mcg IV Q2W PRN 04/20/21 09/12/24 mcg/mL in polysorbate injection (Aranesp) ondansetron 4 mg disintegrating 4 mg PO BID PRN 04/24/21 09/12/24 tablet (Zofran ODT) sodium chloride-aloe vera nasal 1 applic topical QID PRN 07/16/22 09/12/24 gel ([place] Saline nasal gel) IV infusion pump accessory 09/12/22 09/12/24 blood-glucose meter 09/12/22 09/12/24 colchicine 0.6 mg tablet 0.6 mg PO DIRECTED 09/12/22 09/12/24 sodium chloride 0.9 % (flush) 10 ml IV QWEEK 09/12/22 09/12/24 iron sucrose 200 mg iron/10 mL 300 mg IV .12 weeks PRN 01/15/23 09/12/24 intravenous solution (Venofer) insulin lispro-aabc 100 unit/mL 20 unit subcut QACLUNCH 11/07/23 09/12/24 subcutaneous pen (Lyumjev KwikPen U-100 Insulin) allopurinol 100 mg tablet 200 mg (2 x 100 mg) PO DAILY #0 01/09/24 09/12/24 tabs insulin glargine 100 unit/mL (3 12 unit (0.12 mL) subcut DAILY #0 01/09/24 09/12/24 mL) subcutaneous pen (Lantus mL Solostar U-100 Insulin) docusate sodium 100 mg capsule 100 mg PO TID PRN 01/29/24 09/12/24 (Colace) furosemide 40 mg tablet 40 mg PO BID #180 tabs 02/06/24 09/12/24 losartan 50 mg tablet 50 mg PO DAILY 02/06/24 09/12/24 carvedilol 12.5 mg tablet 12.5 mg PO BID #180 tabs 07/24/24 09/12/24 amoxicillin 875 mg tablet 875 mg PO BID 7 days #14 tabs 09/12/24 doxycycline hyclate 100 mg tablet 100 mg PO BID #14 tabs 09/12/24 prednisone 20 mg tablet 60 mg (3 x 20 mg) PO DAILY 4 days 09/12/24 #12 tabs Previous Rx's ?Medication ?Instructions ?Recorded aspirin 81 mg tablet,delayed 81 mg PO DAILY #100 tabs 04/12/21 release magnesium oxide 400 mg (241.3 mg 400 mg PO BID #60 tabs 04/12/21 magnesium) tablet nitroglycerin 0.4 mg sublingual 0.4 mg sublingual Q5-15M PRN #30 04/12/21 tablet tabs allopurinol 100 mg tablet 200 mg (2 x 100 mg) PO DAILY #0 01/09/24 tabs insulin glargine 100 unit/mL (3 12 unit (0.12 mL) subcut DAILY #0 01/09/24 mL) subcutaneous pen (Lantus mL Solostar U-100 Insulin) furosemide 40 mg tablet 40 mg PO BID #180 tabs 02/06/24 carvedilol 12.5 mg tablet 12.5 mg PO BID #180 tabs 07/24/24 amoxicillin 875 mg tablet 875 mg PO BID 7 days #14 tabs 09/12/24 doxycycline hyclate 100 mg tablet 100 mg PO BID #14 tabs 09/12/24 prednisone 20 mg tablet 60 mg (3 x 20 mg) PO DAILY 4 days 09/12/24 #12 tabs Allergies Allergy/AdvReac Type Severity Reaction Status Date / Time bacitracin (From Neosporin Allergy Mild Skin Rash Verified 09/12/24 10:42 ([id number])) neomycin (From Neosporin Allergy Mild Skin Rash Verified 09/12/24 10:42 ([id number])) polymyxin B (From Neosporin Allergy Mild Skin Rash Verified 09/12/24 10:42 ([id number])) methotrexate Allergy Skin Rash Verified 09/12/24 10:42 morphine Allergy Itching Verified 09/12/24 10:42 Hdduylm-REB-NsO Reductase Allergy NECROTIZING Verified 09/12/24 10:42 Inhibitor (Pjqylmv-Tvx-Lpn MYOPATHY Reductase Inhibitor) General Stated Complaint: RespSymp AURA: 4 Review of Systems All systems reviewed & are unremarkable except as noted in HPI and below Constitutional Constitutional: Denies chills, Denies fever(s) and Denies weakness Cardiovascular Cardiovascular: Denies chest pain and Denies dyspnea Respiratory Respiratory: Reports cough and Denies dyspnea Gastrointestinal Gastrointestinal: Denies abdominal pain, Denies nausea and Denies vomiting Neurologic Neurologic: Denies weakness Exam Const General: no acute distress Orientation: alert [facility] Head: normal to inspection Ears: external ears normal General nose exam: external nose normal Mouth: moist mucous membranes Eyes General: appearance normal, both eyes and all related structures Neck Neck: normal visual inspection Resp Effort & Inspection: normal respiratory effort and able to speak in complete sentences Auscultation: rhonchi Cardio Jugular venous pressure: no JVD Rate: regular rate Skin General skin exam: no rashes or lesions noted Neuro General: patient alert and patient oriented x3 Extrem General: normal to inspection Psych Mental Status: mental status grossly normal Course Vital Signs Vital signs: Vital Signs Pulse 72 09/12/24 09:54 Respiratory Rate 16 09/12/24 09:54 Blood Pressure 154/74 H 09/12/24 09:54 Pulse Oximetry 98 09/12/24 09:54 Pulse 72 09/12/24 09:58 Respiratory Rate 16 09/12/24 09:58 Respiratory Effort Normal 09/12/24 10:04 Blood Pressure 154/74 H 09/12/24 09:58 Pulse Oximetry 98 09/12/24 09:58 Pain Level 0 09/12/24 09:58 Medical Decision Making 64-year-old male with a history of chronic kidney disease, heart failure, hypertension, who comes in with complaints of cough for a week and had labs done yesterday which showed a white count less than 2 so was called and told to come here for evaluation. He denies any chest pain or difficulty breathing, denies any recent travel, no vomiting or rashes. He is well-appearing speaking full sentences on exam. He has no pitting edema of his legs or calf tenderness. He has rhonchi at the bases bilaterally, no JVD. I suspect respiratory infection, will check in with her CBC, CMP, inflammatory markers and procalcitonin and chest x-ray. Will treat her symptoms with steroids and DuoNeb and reassess. Lab work shows no significant change from baseline, Fluvid negative and chest x- ray shows no acute findings. Given the fluids and negative Cough I will initiate antibiotics. He is stable for discharge and will follow-up with his PCP if not improving this week and return precautions given Differential Diagnosis Differential Diagnosis: URI, pneumonia Quality:SDOH Health Related Social Needs: No Data to Display PFSH All Active Problems (Updated 09/12/24 @ 11:30 by Richard Palma MD) Respiratory infection (Acute) Ulcer of right foot limited to breakdown of skin (Acute) Hammertoe of right foot (Acute) Osteomyelitis (Acute) Mucocele of tonsil (Acute) Venous stasis ulcer of right ankle limited to breakdown of skin (Acute) Venous insufficiency (Acute) Acute kidney injury superimposed on chronic kidney disease (Acute) Vascular device, implant, or graft infection or inflammation (Acute) MRSA bacteremia (Acute) Surgical site infection (Acute) History of incision and drainage (Acute) Pleural effusion due to CHF (congestive heart failure) (Acute) Anemia due to stage 3 chronic kidney disease (Chronic) CKD (chronic kidney disease) stage 3, GFR 30-59 ml/min (Chronic) Adverse effect of statin (Acute) 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 Baseline is around 70,000 Lower extremity cellulitis (Acute) Renal insufficiency (Chronic) Impacted cerumen of both ears (Acute) HTN (hypertension) (Chronic) Cirrhosis of liver (Chronic) Myopathy (Acute) Hearing deficit (Acute) Epistaxis (Acute) Chronic anemia (Chronic) Per Dr. Melendez due to iron deficiency. Venofer 300mg every 3months. Cannot follow ferritin due to myopathy causing nonspecific inflammation. 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 Patient receives IVIG over 2 days every 4 weeks. Patient has never tolerated discontinuation Cellulitis Elevated troponin level not due myocardial infarction Bacteremia Acute on chronic renal insufficiency Subclavian vein thrombosis Barretts esophagus Hyperlipidemia Other pancytopenia History of shingles Nonalcoholic steatohepatitis History of deep vein thrombosis Anemia Hypomagnesemia Diabetic ulcer of right foot Acute non-ST segment elevation myocardial infarction Sepsis Vasculitis Obesity Basal cell carcinoma, face Duodenitis Pancytopenia Shingles DVT (deep venous thrombosis) Pulmonary embolism Gout NSTEMI (non-ST elevated myocardial infarction) Chronic kidney disease Cardiomyopathy 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 Sister Diabetes PATERNAL UNCLE Personal history of malignant neoplasm STOMACH Social History Smoking/Tobacco Use Status: Never Smoking risk assessment performed?: Yes Alcohol Intake: never Drug use: Never Substance use type: does not use Housing: house Do you feel safe at home: Yes Do you feel safe in your relationship?: Yes
[2024-09-12 10:31] LABS: BE (Venous) 2 mmol/L (-2-3); HCO3 (Venous) 27 mmol/L (23-28); O2 Sat (Venous) 75 %; TCO2 (Venous) 25 mmol/L (24-29); pCO2 (Venous) 44 mmHg (41-51); pH (Venous) 7.39 (7.31-7.41); pO2 (Venous) 40 mmHg
[2024-09-12 10:34] LABS: Abs Immature Grans 0.01 10^3/uL (0.0-0.06); Absolute Basophil Count 0.04 10^3/uL (0.0-0.2); Absolute Eosinophil Count 0.26 10^3/uL (0.0-0.7); Absolute Lymphocyte Count 0.36 10^3/uL (1.2-3.4); Absolute Monocyte Count 0.28 10^3/uL (0.1-0.8); Absolute Neutrophil Count 1.25 10^3/uL (1.2-6.7); Basophils % 1.8 %; Eosinophils % 11.8 %; HCT 33.8 % (40.0-50.0); HGB 10.5 g/dL (13.5-17.5); Immature Grans % 0.5 %; Lymphocytes % 16.4 %; MCH 32.2 pg (27.0-33.0); MCHC 31.1 % (32.0-36.0); MCV 104 fL (80-95); MPV 11.9 fL (8.0-11.0); Monocytes % 12.7 %; Neutrophils % 56.8 %; RBC 3.26 10^6/uL (4.36-5.78); RDW 14.6 % (11.8-14.1)
[2024-09-12 10:38] LABS: ESR 78 mm/hr (0-20)
[2024-09-12] MEDS: methylPREDNISolone SUCC 125 MG VIAL IVP (10:38)
[2024-09-12] MEDS: Albuterol/Ipratropium 3 ML UPD VIAL UPD (10:38)
--- NOTE | 2024-09-12 10:39 | DI.RAD_ITS ---
Exam(s) XR CHEST 2V PA LATERAL EXAM: XR CHEST 2V PA LATERAL CLINICAL HISTORY: cough TECHNIQUE: 2D digital imaging was performed of the chest. Two images were obtained. PA and lateral views were obtained. COMPARISON: CR XR CHEST 2V PA LATERAL from 01/02/2024 CR,XR XR PORTABLE CHEST AP POST LINE from 01/07/2024 FINDINGS: MEDIASTINUM: Normal. HEART: Normal. PULMONARY VASCULATURE: Normal. LUNGS: Clear. PLEURAL SPACE: No pleural effusion or pneumothorax. BONE:Within normal limits for the patient's age. OTHER FINDINGS:There is a right port in place. IMPRESSION: No focal consolidating infiltrates are present. DATA REPOSITORY: RADIATION DOSE DELIVERED:
[2024-09-12 10:45] LABS: INR 1.2 (0.9-1.1); PTT Activated 25.4 sec (20.6-30.2); Prothrombin Time 11.9 sec (9.1-11.1)
[2024-09-12 10:50] LABS: ALT 34 U/L (16-63); AST 47 U/L (15-37); Albumin 2.7 g/dL (3.4-5.0); Alkaline Phosphatase 164 U/L (46-116); Anion Gap 5.6 mmol/L (3-11); Bilirubin, Total 0.8 mg/dL (0.2-1.0); C-Reactive Protein 1.17 mg/dL (<or=0.5); CO2 27.4 mmol/L (21.0-32.0); CREATININE 2.1 mg/dL (0.70-1.30); Calcium 9.3 mg/dL (8.5-10.1); Chloride 105 mmol/L (98-107); Estimated GFR 34.08 (mL/min/1.73m2); Glucose 158 mg/dL (74-106); Magnesium 2.2 mg/dL; Potassium 4.8 mmol/L (3.5-5.1); Sodium 138 mmol/L (136-145); Total Protein 9.3 g/dL (6.4-8.2)
[2024-09-12 10:56] LABS: BUN 93 mg/dL (7-18)
[2024-09-12 11:03] LABS: Diff Comment Diff Reviewed; Platelet Count 58 10^3/uL (130-400); RBC Morphology Normal
[2024-09-12 11:09] LABS: COVID-19 PCR Negative (Negative); Influenza A PCR Negative (Negative); Influenza B PCR Negative (Negative); RSV PCR Negative (Negative); Source Nasopharynx
[2024-09-12 11:12] LABS: Procalcitonin 0.46 ng/mL
[2024-09-12] MEDS: Albuterol HFA 8 GM 60 PUFF INH IH (11:35)
[2024-09-12 11:50] LABS: Bilirubin Negative (Negative); Blood Trace-intact (Negative); Clarity Clear (Clear); Glucose Negative (Negative); Ketones Negative (Negative); Leukocyte Esterase Negative (Negative); Nitrite Negative (Negative); Urobilinogen 0.2 mg/dL (Up to 0.2); pH 5.5 (5-8)
[2024-09-12 12:06] LABS: Bacteria Rare HPF (Negative); C & S Indicated? No; Casts Negative LPF (Negative); Crystals Negative HPF (Negative); Epithelial Cells Rare HPF (Negative); Mucus Trace (Negative); WBC 0-2 HPF (0-5)
== END 2024-09-12 12:11 | disposition home or self-care (01) ==
PROVIDERS: Emergency Provider Emergency Medicine; PCP Family Medicine
DX: J06.9 Acute upper respiratory infection, unspecified (principal); E11.22 Type 2 diabetes mellitus with diabetic chronic kidney disease; I13.0 Hypertensive heart and chronic kidney disease with heart failure and stage 1 through stage 4 chronic kidney disease, or unspecified chronic kidney disease; N18.30 Chronic kidney disease, stage 3 unspecified; I50.22 Chronic systolic (congestive) heart failure; E78.5 Hyperlipidemia, unspecified; I25.2 Old myocardial infarction; Z86.718 Personal history of other venous thrombosis and embolism; Z86.711 Personal history of pulmonary embolism; Z79.4 Long term (current) use of insulin; Z79.82 Long term (current) use of aspirin
CPT/HCPCS: 36415; 80053; 82805; 84145; 85652; 87637; 94640; 96374; 99285; 71046; 81003; 81015; 83735; 85025; 85610; 85730; 86140; 99284; J2919; J7620

== ENCOUNTER → 2024-09-24 08:04 | Outpatient (BNVA) | payer MEDICARE, SELFPAY | PROVIDERS: PCP Family Medicine; Referring Provider Family Medicine; Visit Provider Podiatrist | DX: L97.511 Non-pressure chronic ulcer of other part of right foot limited to breakdown of skin (principal); I83.013 Varicose veins of right lower extremity with ulcer of ankle; L97.311 Non-pressure chronic ulcer of right ankle limited to breakdown of skin; I87.2 Venous insufficiency (chronic) (peripheral); R60.0 Localized edema; M86.9 Osteomyelitis, unspecified; E11.22 Type 2 diabetes mellitus with diabetic chronic kidney disease; N18.32 Chronic kidney disease, stage 3b; Z79.4 Long term (current) use of insulin | CPT/HCPCS: 99024 ==

== ENCOUNTER 2024-10-06 00:19 | Outpatient (RCR) | payer MEDICARE, SELFPAY ==
[2024-09-08] MEDS: IMMUNE GLOBULIN 10 GM/100 ML BTL IVPB (08:06)
[2024-09-08 08:10] VITALS: BP 145/79; PULSE 105; RESP 17; TEMP 37.1; O2SAT 99
[2024-09-08] MEDS: Normal Saline Flush 10 ML SYR IVP (08:12)
[2024-09-08 08:25] VITALS: BP 113/72; PULSE 63; RESP 17; TEMP 36.9; O2SAT 98
[2024-09-08 08:40] VITALS: BP 117/71; PULSE 65; RESP 17; TEMP 36.9; O2SAT 100
[2024-09-08] MEDS: IMMUNE GLOBULIN 20 GM/200 ML BTL 2.2 GM IVPB (08:56)
[2024-09-08 09:10] VITALS: BP 130/75; PULSE 64; RESP 17; TEMP 36.9; O2SAT 98
[2024-09-08] MEDS: IMMUNE GLOBULIN 40 GM/400 ML BTL IVPB (09:39)
[2024-09-08 09:40] VITALS: BP 131/74; PULSE 66; RESP 17; TEMP 36.8; O2SAT 98
[2024-09-08 10:10] VITALS: BP 132/74; PULSE 64; RESP 17; TEMP 36.9; O2SAT 100
[2024-09-08] MEDS: IMMUNE GLOBULIN 40 GM/400 ML BTL 4.4 GM IVPB (10:39)
[2024-09-21] MEDS: Normal Saline Flush 10 ML SYR IVP (07:09)
[2024-09-21 07:16] LABS: Abs Immature Grans 0.02 10^3/uL (0.0-0.06); Absolute Basophil Count 0.01 10^3/uL (0.0-0.2); Absolute Lymphocyte Count 0.38 10^3/uL (1.2-3.4); Absolute Monocyte Count 0.32 10^3/uL (0.1-0.8); Absolute Neutrophil Count 2.56 10^3/uL (1.2-6.7); Basophils % 0.3 %; Eosinophils % 5.7 %; HCT 36.7 % (40.0-50.0); HGB 11.6 g/dL (13.5-17.5); Immature Grans % 0.6 %; Lymphocytes % 10.9 %; MCHC 31.6 % (32.0-36.0); MCV 101 fL (80-95); Monocytes % 9.2 %; Neutrophils % 73.3 %; RBC 3.63 10^6/uL (4.36-5.78); RDW 15.1 % (11.8-14.1); RDW-SD 56.1 fL; WBC 3.49 10^3/uL (4.4-10.8)
[2024-09-21 07:25] LABS: Estimated GFR 36.13 (mL/min/1.73m2)
[2024-09-21 07:33] LABS: Diff Comment PLT Morph Reviewed; Platelet Count 40 10^3/uL (130-400); RBC Morphology Normal
[2024-10-05] MEDS: Normal Saline Flush 10 ML SYR IVP (07:00)
[2024-10-05 07:17] LABS: Abs Immature Grans 0.01 10^3/uL (0.0-0.06); Absolute Basophil Count 0.03 10^3/uL (0.0-0.2); Absolute Eosinophil Count 0.26 10^3/uL (0.0-0.7); Absolute Lymphocyte Count 0.38 10^3/uL (1.2-3.4); Absolute Monocyte Count 0.27 10^3/uL (0.1-0.8); Absolute Neutrophil Count 1.87 10^3/uL (1.2-6.7); Basophils % 1.1 %; Eosinophils % 9.2 %; HCT 36.9 % (40.0-50.0); HGB 11.6 g/dL (13.5-17.5); Immature Grans % 0.4 %; Lymphocytes % 13.5 %; MCHC 31.4 % (32.0-36.0); MCV 102 fL (80-95); MPV 11.8 fL (8.0-11.0); Monocytes % 9.6 %; Neutrophils % 66.2 %; RBC 3.63 10^6/uL (4.36-5.78); RDW 15.2 % (11.8-14.1); RDW-SD 56.6 fL; WBC 2.82 10^3/uL (4.4-10.8)
[2024-10-05 07:30] LABS: C-Reactive Protein 0.63 mg/dL (<or=0.5); Creatine Kinase 76 U/L (39-308); Estimated GFR 36.13 (mL/min/1.73m2)
[2024-10-05 07:32] LABS: Platelet Count 41 10^3/uL (130-400)
[2024-10-05 07:33] LABS: Diff Comment Diff Reviewed; RBC Morphology Normal
[2024-10-05] MEDS: IMMUNE GLOBULIN 10 GM/100 ML BTL IVPB (07:47)
[2024-10-05 07:50] VITALS: BP 101/58; PULSE 71; RESP 18; TEMP 36.6; O2SAT 100
[2024-10-05 08:05] VITALS: BP 110/68; PULSE 65; RESP 17; TEMP 36.5; O2SAT 99
[2024-10-05 08:20] VITALS: BP 117/73; PULSE 65; RESP 18; TEMP 36.5; O2SAT 99
[2024-10-05] MEDS: IMMUNE GLOBULIN 20 GM/200 ML BTL 2.2 GM IVPB (08:41)
[2024-10-05 08:51] VITALS: BP 118/65; PULSE 65; RESP 18; TEMP 36.8; O2SAT 99
[2024-10-05 09:20] VITALS: BP 120/76; PULSE 64; RESP 18; TEMP 36.5; O2SAT 98
[2024-10-05] MEDS: IMMUNE GLOBULIN 40 GM/400 ML BTL IVPB ×2 (09:23→10:20)
[2024-10-05 09:57] VITALS: BP 129/66; PULSE 75; RESP 22; TEMP 36.6; O2SAT 98
[2024-10-06] VITALS (8 sets, daily range): BP systolic 100–137; BP diastolic 53–80; PULSE 64–68; RESP 15–19; TEMP 36.5–36.7; O2SAT 98–100
[2024-10-06] MEDS: IMMUNE GLOBULIN 10 GM/100 ML BTL IVPB (07:26)
[2024-10-06] MEDS: IMMUNE GLOBULIN 20 GM/200 ML BTL IVPB (08:04)
[2024-10-06] MEDS: IMMUNE GLOBULIN 40 GM/400 ML BTL IVPB (08:53)
[2024-10-06] MEDS: IMMUNE GLOBULIN 40 GM/400 ML BTL 4.4 GM IVPB (09:54)
[2024-10-06] MEDS: Normal Saline Flush 10 ML SYR IVP (11:04)
== END 2024-10-07 23:59 | disposition home or self-care (01) ==
LOC: INF 00:19
PROVIDERS: PCP Family Medicine; Visit Provider Nurse Practitioner Adult Health
DX: D63.1 Anemia in chronic kidney disease; G72.9 Myopathy, unspecified; Z79.52 Long term (current) use of systemic steroids; G72.49 Other inflammatory and immune myopathies, not elsewhere classified
CPT/HCPCS: 36591; 82550; 96365; 96366; 96372; 96523; 82565; 85025; 86140; J0881; J1459

== ENCOUNTER → 2024-10-22 08:11 | Outpatient (BNVA) | payer MEDICARE, SELFPAY | PROVIDERS: PCP Family Medicine; Referring Provider Family Medicine; Visit Provider Podiatrist | DX: L97.511 Non-pressure chronic ulcer of other part of right foot limited to breakdown of skin (principal); L97.311 Non-pressure chronic ulcer of right ankle limited to breakdown of skin; I83.013 Varicose veins of right lower extremity with ulcer of ankle; I87.2 Venous insufficiency (chronic) (peripheral); R60.0 Localized edema; E11.22 Type 2 diabetes mellitus with diabetic chronic kidney disease; N18.32 Chronic kidney disease, stage 3b; Z79.4 Long term (current) use of insulin; L03.115 Cellulitis of right lower limb | CPT/HCPCS: 99213 ==

== ENCOUNTER 2024-11-04 01:01 | Outpatient (RCR) | payer MEDICARE, SELFPAY ==
[2024-10-19 07:29] LABS: Abs Immature Grans 0.01 10^3/uL (0.0-0.06); Absolute Basophil Count 0.02 10^3/uL (0.0-0.2); Absolute Eosinophil Count 0.23 10^3/uL (0.0-0.7); Absolute Lymphocyte Count 0.32 10^3/uL (1.2-3.4); Absolute Monocyte Count 0.24 10^3/uL (0.1-0.8); Absolute Neutrophil Count 1.45 10^3/uL (1.2-6.7); Basophils % 0.9 %; Eosinophils % 10.1 %; HCT 33.1 % (40.0-50.0); HGB 10.6 g/dL (13.5-17.5); Immature Grans % 0.4 %; Lymphocytes % 14.1 %; MCH 31.5 pg (27.0-33.0); MCV 98 fL (80-95); MPV 11.6 fL (8.0-11.0); Monocytes % 10.6 %; Neutrophils % 63.9 %; RBC 3.37 10^6/uL (4.36-5.78); RDW 15.8 % (11.8-14.1); RDW-SD 56.4 fL; WBC 2.27 10^3/uL (4.4-10.8)
[2024-10-19 07:39] LABS: CREATININE 2.1 mg/dL (0.70-1.30); Diff Comment PLT Morph Reviewed; Estimated GFR 34.08 (mL/min/1.73m2); Platelet Count 42 10^3/uL (130-400); RBC Morphology Normal
[2024-10-19] MEDS: Normal Saline Flush 10 ML SYR IVP (07:52)
[2024-11-03 07:20] VITALS: BP 97/60; PULSE 59; RESP 19; TEMP 36.2; O2SAT 98
[2024-11-03 07:42] LABS: Absolute Basophil Count 0.03 10^3/uL (0.0-0.2); Absolute Eosinophil Count 0.28 10^3/uL (0.0-0.7); Absolute Lymphocyte Count 0.22 10^3/uL (1.2-3.4); Absolute Monocyte Count 0.22 10^3/uL (0.1-0.8); Absolute Neutrophil Count 1.69 10^3/uL (1.2-6.7); Basophils % 1.2 %; Eosinophils % 11.5 %; HCT 34.7 % (40.0-50.0); HGB 10.9 g/dL (13.5-17.5); MCH 31.1 pg (27.0-33.0); MCHC 31.4 % (32.0-36.0); MCV 99 fL (80-95); Neutrophils % 69.3 %; RBC 3.51 10^6/uL (4.36-5.78); RDW 15.5 % (11.8-14.1); RDW-SD 56.8 fL; WBC 2.44 10^3/uL (4.4-10.8)
[2024-11-03] MEDS: IMMUNE GLOBULIN 10 GM/100 ML BTL IVPB (07:54)
[2024-11-03] MEDS: Normal Saline Flush 10 ML SYR IVP (07:54)
[2024-11-03 08:13] LABS: C-Reactive Protein 0.77 mg/dL (<or=0.5); Creatine Kinase 41 U/L (39-308); Estimated GFR 36.13 (mL/min/1.73m2)
[2024-11-03 08:21] LABS: Diff Comment Diff Reviewed; Platelet Count 45 10^3/uL (130-400); RBC Morphology Normal
[2024-11-03 08:22] VITALS: BP 103/64; PULSE 62; RESP 20; TEMP 36.4; O2SAT 97
[2024-11-03 08:34] VITALS: BP 95/57; PULSE 62; RESP 20; TEMP 36.5; O2SAT 100
[2024-11-03] MEDS: IMMUNE GLOBULIN 20 GM/200 ML BTL IVPB (08:41)
[2024-11-03 09:08] VITALS: BP 100/57; PULSE 65; RESP 19; TEMP 36.5; O2SAT 98
[2024-11-03] MEDS: IMMUNE GLOBULIN 40 GM/400 ML BTL IVPB ×2 (09:29→10:26)
[2024-11-03 09:33] VITALS: BP 121/72; PULSE 63; RESP 20; TEMP 36.4; O2SAT 100
[2024-11-03 09:57] VITALS: BP 112/61; PULSE 63; RESP 19; TEMP 36.3; O2SAT 97
[2024-11-04] VITALS (7 sets, daily range): BP systolic 95–114; BP diastolic 47–72; PULSE 61–63; RESP 18–19; TEMP 36.2–36.4; O2SAT 98–100
[2024-11-04] MEDS: IMMUNE GLOBULIN 10 GM/100 ML BTL IVPB (07:55)
[2024-11-04] MEDS: Normal Saline Flush 10 ML SYR IVP (07:55)
[2024-11-04] MEDS: IMMUNE GLOBULIN 20 GM/200 ML BTL 2.2 GM IVPB (08:42)
[2024-11-04] MEDS: IMMUNE GLOBULIN 40 GM/400 ML BTL IVPB ×2 (09:24→10:23)
== END 2024-11-07 23:59 | disposition home or self-care (01) ==
LOC: INF 01:01
PROVIDERS: Internal Medicine; PCP Family Medicine; Visit Provider Nurse Practitioner Adult Health
DX: D64.9 Anemia, unspecified (principal); D50.9 Iron deficiency anemia, unspecified; G72.49 Other inflammatory and immune myopathies, not elsewhere classified; N18.9 Chronic kidney disease, unspecified
CPT/HCPCS: 36591; 82550; 96365; 96366; 96372; 96523; 82565; 85025; 86140; J0881; J1459

== ENCOUNTER → 2024-11-30 11:08 | Outpatient (BNVA) | payer MEDICARE, SELFPAY | PROVIDERS: PCP Family Medicine; Referring Provider Family Medicine; Visit Provider Registered Nurse | DX: I50.20 Unspecified systolic (congestive) heart failure (principal); Z79.899 Other long term (current) drug therapy | CPT/HCPCS: 99214 ==

== ENCOUNTER 2024-12-01 02:37 | Outpatient (RCR) | payer MEDICARE, SELFPAY ==
[2024-11-16] MEDS: Normal Saline Flush 10 ML SYR IVP (07:09)
[2024-11-16 07:16] LABS: Absolute Basophil Count 0.04 10^3/uL (0.0-0.2); Absolute Eosinophil Count 0.33 10^3/uL (0.0-0.7); Absolute Monocyte Count 0.26 10^3/uL (0.1-0.8); Absolute Neutrophil Count 2.04 10^3/uL (1.2-6.7); Basophils % 1.3 %; Eosinophils % 10.7 %; HCT 34.1 % (40.0-50.0); HGB 10.7 g/dL (13.5-17.5); MCH 31.1 pg (27.0-33.0); MCHC 31.4 % (32.0-36.0); MCV 99 fL (80-95); MPV 11.4 fL (8.0-11.0); Monocytes % 8.5 %; Neutrophils % 66.5 %; RBC 3.44 10^6/uL (4.36-5.78); RDW 16.5 % (11.8-14.1); RDW-SD 59.7 fL; WBC 3.07 10^3/uL (4.4-10.8)
[2024-11-16 07:25] LABS: CREATININE 2.4 mg/dL (0.70-1.30); Estimated GFR 29.03 (mL/min/1.73m2)
[2024-11-16 07:40] LABS: Diff Comment PLT Morph Reviewed; Platelet Count 44 10^3/uL (130-400); RBC Morphology Normal
[2024-11-30] VITALS (7 sets, daily range): BP systolic 86–117; BP diastolic 48–75; PULSE 57–96; RESP 20–24; TEMP 36.3–36.6; O2SAT 96–99
[2024-11-30] MEDS: IMMUNE GLOBULIN 10 GM/100 ML BTL IVPB (07:20)
[2024-11-30] MEDS: Normal Saline Flush 10 ML SYR IVP (07:20)
[2024-11-30 07:37] LABS: Abs Immature Grans 0.01 10^3/uL (0.0-0.06); Absolute Basophil Count 0.05 10^3/uL (0.0-0.2); Absolute Eosinophil Count 0.33 10^3/uL (0.0-0.7); Absolute Lymphocyte Count 0.36 10^3/uL (1.2-3.4); Absolute Monocyte Count 0.23 10^3/uL (0.1-0.8); Absolute Neutrophil Count 2.23 10^3/uL (1.2-6.7); Basophils % 1.6 %; Eosinophils % 10.3 %; HCT 34.2 % (40.0-50.0); HGB 10.8 g/dL (13.5-17.5); Immature Grans % 0.3 %; Lymphocytes % 11.2 %; MCH 31.1 pg (27.0-33.0); MCHC 31.6 % (32.0-36.0); MCV 99 fL (80-95); MPV 12.4 fL (8.0-11.0); Monocytes % 7.2 %; Neutrophils % 69.4 %; RBC 3.47 10^6/uL (4.36-5.78); RDW 16.3 % (11.8-14.1); RDW-SD 59.2 fL; WBC 3.21 10^3/uL (4.4-10.8)
[2024-11-30 07:51] LABS: CREATININE 2.3 mg/dL (0.70-1.30); Estimated GFR 30.55 (mL/min/1.73m2)
[2024-11-30 08:08] LABS: Platelet Count 41 10^3/uL (130-400)
[2024-11-30] MEDS: IMMUNE GLOBULIN 20 GM/200 ML BTL 2.2 GM IVPB (08:14)
[2024-11-30 08:33] LABS: Iron 51 ug/dL (65-175); Total Iron Binding Capacity 340 ug/dL (250-450); Transferrin Sat 15 % (20-55)
[2024-11-30] MEDS: IMMUNE GLOBULIN 40 GM/400 ML BTL IVPB ×2 (09:01→09:58)
[2024-12-01] MEDS: Normal Saline Flush 10 ML SYR IVP (07:26)
[2024-12-01] MEDS: IRON SUCROSE COMPLEX 300 MG in Normal Saline 250 ML 176.667 MG IVPB (07:26)
[2024-12-01] MEDS: IMMUNE GLOBULIN 40 GM/400 ML BTL IVPB ×2 (09:12→10:55)
[2024-12-01 09:39] VITALS: BP 85/52; PULSE 60; RESP 24; TEMP 36.4; O2SAT 97
[2024-12-01 09:54] VITALS: BP 114/69; PULSE 60; RESP 22; TEMP 36.3; O2SAT 99
[2024-12-01 10:25] VITALS: BP 113/65; PULSE 63; RESP 20; TEMP 36.3; O2SAT 97
[2024-12-01 10:57] VITALS: BP 119/75; PULSE 60; RESP 22; TEMP 36.2; O2SAT 98
[2024-12-01 11:29] VITALS: BP 112/74; PULSE 61; RESP 20; TEMP 36.5; O2SAT 96
[2024-12-01] MEDS: IMMUNE GLOBULIN 40 GM/400 ML BTL 4.83 GM IVPB (11:50)
== END 2024-12-07 23:59 | disposition home or self-care (01) ==
LOC: INF 02:37
PROVIDERS: Internal Medicine; PCP Family Medicine; Visit Provider Nurse Practitioner Adult Health
DX: D61.818 Other pancytopenia (principal); D50.9 Iron deficiency anemia, unspecified; Z45.2 Encounter for adjustment and management of vascular access device; G72.49 Other inflammatory and immune myopathies, not elsewhere classified
CPT/HCPCS: 36591; 94060; 94726; 94729; 96365; 96366; 96372; 99214; 82565; 83540; 83550; 85025; J0881; J1459; J1756

== ENCOUNTER 2024-12-01 07:28 | Outpatient (CLI) | payer MEDICARE, SELFPAY ==
[2024-12-01] MEDS: Levalbuterol HFA 15 GM INH 4 PUFF IH (15:44)
[2024-12-01] MEDS: Inhaler, Assist Device 1 EACH MC (15:44)
--- NOTE | 2024-12-13 10:01 | W.PFT ---
Date of service: 12/01/24 Time of Service: 14:34 Pulmonary Function Test Result Indications: Chronic cough Interpretation Spirometry: Restrictive spirometry, no airflow limitation. No bronchodilator response Lung Volumes: Severe restrictive lung disease Diffusion Capacity: Reduced diffusion Airway Pressure: Normal airways resistance Impression Severe restrictive lung disease with a reduced diffusion Clinical Correlation therefore is recommended.
== END 2024-12-01 07:29 | disposition home or self-care (01) ==
LOC: RT 07:28
PROVIDERS: PCP Family Medicine; Visit Provider Student in an Organized Health Care Education/Training Program
DX: R06.09 Other forms of dyspnea (principal); R05.3 Chronic cough
CPT/HCPCS: 94060; 94726; 94729

== ENCOUNTER → 2024-12-09 10:30 | Outpatient (BNVA) | payer MEDICARE, SELFPAY | PROVIDERS: PCP Family Medicine; Referring Provider Family Medicine; Visit Provider Physician Assistant Surgical | DX: I50.20 Unspecified systolic (congestive) heart failure (principal); N18.32 Chronic kidney disease, stage 3b; D64.9 Anemia, unspecified; R06.00 Dyspnea, unspecified; K74.60 Unspecified cirrhosis of liver; I51.89 Other ill-defined heart diseases; E66.9 Obesity, unspecified; J98.4 Other disorders of lung | CPT/HCPCS: 99215; 76604; 36591; 80053; 83615; 83880; 85025 ==

== ENCOUNTER 2024-12-10 09:49 | Day surgery (SDC) | payer MEDICARE, SELFPAY ==
[2024-12-10 10:10] VITALS: BP 112/62; PULSE 65; RESP 16; TEMP 35.7; O2SAT 95
--- NOTE | 2024-12-10 11:31 | PAPNONF_PTH ---
PATIENT: Bucky Acevedo LOC: [facility] U#:[id number] AGE/SX: 64/M ROOM: RE12/10/[address]: Kenyon Douglass : 1960 BED: DIS: 12/10/2024 SPEC #: [id number] RECD: 12/10/24 13:01 STATUS: CLAUDIA REQ #: [id number] JAGDISH: 12/10/24 11:[address]: Kenyon Douglass DEPT: [facility] Cytology RECD BY: Ellen Cabrera ENTERED: 12/10/24 13:01 SP TYPE: IAN CERVANTES DR: Jazmine Baer V Tissues: 1 - BODY FLUID CYTO(NOT S/U/N/EM)[facility] Procedures: BODY FLUID CYTO(NOT SPU/UR/NIP/ENDOM)[facility] Comments: [id number] (TV = 50 ml, SENT FRESH) (REFRIGERATED)
[2024-12-10 11:56] VITALS: BP 107/53; PULSE 66; RESP 16; TEMP 36.4; O2SAT 96
[2024-12-10 12:25] VITALS: BP 108/62; PULSE 62; RESP 16; TEMP 36.4; O2SAT 99
--- NOTE | 2024-12-10 12:26 | DI.RAD_ITS ---
Exam(s) XR PORTABLE CHEST AP EXAM: XR PORTABLE CHEST AP CLINICAL HISTORY: post right thoracentesis. TECHNIQUE: 2D digital imaging was performed. COMPARISON: CR XR CHEST 2V PA LATERAL from 09/12/2024 FINDINGS: Single AP portable view. Distal tip of the right sided Port-A-Cath is in the right atrium. Heart size is upper normal. The mediastinum is not widened. There is infiltrate in the left lung base and small-moderate sized left pleural effusion. No obvious infiltrate in the right lung. No obvious right pleural effusion. IMPRESSION: Left lung base infiltrate and left pleural effusion. DATA REPOSITORY: RADIATION DOSE DELIVERED:
--- NOTE | 2024-12-10 12:36 | W.PM.OP ---
Operative Note Operative Note PRE-OP DIAGNOSIS: Pleural effusion PROCEDURE: Right thoracentesis SURGEON: Kenyon Douglass ANESTHESIA TYPE: Local By Surgeon ESTIMATED BLOOD LOSS: 3 (mL) PATHOLOGY: other (Fluid sent for chemistries, bacterial/fungal/afb cultures, cell count, and cytopathology) Indications: Dyspnea, diagnosis of pleural effusion Procedure Description: The procedure risks, benefits, and alternatives were discussed with Mr Acevedo, who understood and informed consent was obtained. Laboratory studies and radiographs were reviewed. A time-out was performed.? Bedside ultrasound was used to identify an appropriate site for thoracentesis.? The site was marked on the right posterior chest wall.? Sterile technique was used throughout the procedure.? The site was cleaned and draped in a sterile fashion.? Using a 10 cc syringe and 22 Ga needle, the skin and tract to the pleural cavity were anesthetized with 10 mL of 1% lidocaine.? Pleural fluid was obtained in the 10 cc syringe without difficulty. ?A small 2-3 mm skin incision was made at the marked site.? An 8 Fr catheter over a needle was advanced until positive fluid return.? The catheter was then advanced into the pleural space and the needle was removed.? Pleural fluid was drained without difficulty.? Post-procedure bedside ultrasound demonstrated good lung sliding.? There was minimal residual fluid remaining. Follow-up: A chest radiograph was ordered and is pending Follow-up on pleural fluid analysis Date of Procedure: 12/10/24
[2024-12-10 14:51] LABS: Polynuclear Cells 21 %
[2024-12-10 21:26] LABS: Glucose, Fluid 116 mg/dL (See Note)
[2024-12-12 14:12] LABS: Protein,Total, BF 1.7 g/dL
[2024-12-12 16:07] LABS: Lactate Dehydrogenase (LD), BF 43 U/L
== END 2024-12-10 12:48 | disposition home or self-care (01) ==
PROVIDERS: PCP Family Medicine; Visit Provider Internal Medicine Pulmonary Disease
PROC: (CPT 32554; principal; 2024-12-10 11:00)
DX: J90 Pleural effusion, not elsewhere classified (principal)
CPT/HCPCS: 32555; 00123; 87102; 87116; 87206; 71045; 81373; 83615; 84157; 87070; 87075; 87205; 88104; 89051

== ENCOUNTER 2024-12-14 17:40 | Inpatient (IN) | payer MEDICARE, SELFPAY ==
[2024-12-14] VITALS (26 sets, daily range): BP systolic 97–169; BP diastolic 44–76; PULSE 65–84; RESP 18–22; TEMP 36.9–37.4; O2SAT 94–99
--- NOTE | 2024-12-14 18:15 | RT.EKG_ITS ---
APPROVED REPORT Exam: Resting ECG Reason for Exam: dyspnea Patient Location: E HR:69 bpm ECG Measurements Heart Rate 69 AXIS NH 188 P 68 QRSd 134 QRS 1 QT 449 T [id number] QTc 481 Conclusion Sinus rhythm at a rate of 69 with a with LBBB with appropriate ST discordance
--- NOTE | 2024-12-14 18:28 | W.ED.GENAD ---
Discharge Plan Disposition Patient Disposition: Admit to [facility] Condition: Stable Discharge Details Clinical Impression: Pleural effusion, Shortness of breath Admit Date/Time: 12/14/24 20:59 Admit Provider: Chris Espana Attending Provider: Chris Espana Primary Care Provider: Jazmine Baer V ED Provider: Kathleen Chen General Date/Time Provider Initiated Documentation: 12/14/24 18:04. HPI Narrative: The patient is a 64-year-old male with a history of CHF on torsemide who comes the emergency department for shortness of breath. Reports that he had thoracentesis with 2 L out of the right lung just this . Reports that he had relief with this but since Saturday he has had worsening shortness of breath and worsening lower extremity edema once more. Reports that he has not been started on any new medication but states he is compliant with his existing medication. Denies any chest pain with this. Denies any fevers or chills. Reports that he does not need supplemental oxygen at home. Reports minimal exertion makes him feel more short of breath. Reports he has a nonproductive cough with this. Denies abdominal pain, nausea or vomiting. Reports that he has sores all over his skin and this sore in particular on the right leg started oozing since Saturday. Reports they called the [facility] office today and they were told to go to the emergency department for hospitalization. Related Data Home Medications ?Medication ?Instructions ?Recorded ?Confirmed Gamaguard Ivig See Rx Instructions .Route .COMPLEX 09/18/12 12/14/24 multivitamin (Daily Multi-Vitamin 1 tab PO DAILY 11/23/13 12/14/24 tablet) aspirin 81 mg tablet,delayed 81 mg PO DAILY #100 tabs 04/12/21 12/14/24 release magnesium oxide 400 mg (241.3 mg 400 mg PO BID #60 tabs 04/12/21 12/14/24 magnesium) tablet nitroglycerin 0.4 mg sublingual 0.4 mg sublingual Q5-15M PRN #30 04/12/21 12/14/24 tablet tabs darbepoetin matt in polysorbat 60 60 mcg IV Q2W PRN 04/20/21 12/14/24 mcg/mL in polysorbate injection (Aranesp) ondansetron 4 mg disintegrating 4 mg PO BID PRN 04/24/21 12/14/24 tablet (Zofran ODT) sodium chloride-aloe vera nasal 1 applic topical QID PRN 07/16/22 12/14/24 gel ([place] Saline nasal gel) IV infusion pump accessory 09/12/22 12/09/24 blood-glucose meter 09/12/22 12/09/24 colchicine 0.6 mg tablet 0.6 mg PO DIRECTED 09/12/22 12/14/24 sodium chloride 0.9 % (flush) 10 ml IV QWEEK 09/12/22 12/14/24 iron sucrose 200 mg iron/10 mL 300 mg IV .12 weeks PRN 01/15/23 12/14/24 intravenous solution (Venofer) insulin lispro-aabc 100 unit/mL 20 unit subcut QACLUNCH 11/07/23 12/14/24 subcutaneous pen (Lyumjev KwikPen U-100 Insulin) allopurinol 100 mg tablet 200 mg (2 x 100 mg) PO DAILY #0 01/09/24 12/14/24 tabs insulin glargine 100 unit/mL (3 12 unit (0.12 mL) subcut DAILY #0 01/09/24 12/14/24 mL) subcutaneous pen (Lantus mL Solostar U-100 Insulin) docusate sodium 100 mg capsule 100 mg PO TID PRN 01/29/24 12/14/24 (Colace) losartan 50 mg tablet 50 mg PO DAILY 02/06/24 12/14/24 carvedilol 12.5 mg tablet 12.5 mg PO BID #180 tabs 07/24/24 12/14/24 levalbuterol tartrate 45 2 inh inhalation Q6H 10/22/24 12/14/24 mcg/actuation aerosol inhaler (Xopenex HFA) torsemide 20 mg tablet 80 mg (4 x 20 mg) PO DAILY #240 11/30/24 12/14/24 tabs Previous Rx's ?Medication ?Instructions ?Recorded aspirin 81 mg tablet,delayed 81 mg PO DAILY #100 tabs 04/12/21 release magnesium oxide 400 mg (241.3 mg 400 mg PO BID #60 tabs 04/12/21 magnesium) tablet nitroglycerin 0.4 mg sublingual 0.4 mg sublingual Q5-15M PRN #30 04/12/21 tablet tabs allopurinol 100 mg tablet 200 mg (2 x 100 mg) PO DAILY #0 01/09/24 tabs insulin glargine 100 unit/mL (3 12 unit (0.12 mL) subcut DAILY #0 01/09/24 mL) subcutaneous pen (Lantus mL Solostar U-100 Insulin) carvedilol 12.5 mg tablet 12.5 mg PO BID #180 tabs 07/24/24 torsemide 20 mg tablet 80 mg (4 x 20 mg) PO DAILY #240 11/30/24 tabs Allergies Allergy/AdvReac Type Severity Reaction Status Date / Time bacitracin (From Neosporin Allergy Mild Skin Rash Verified 12/14/24 17:56 ([id number])) neomycin (From Neosporin Allergy Mild Skin Rash Verified 12/14/24 17:56 ([id number])) polymyxin B (From Neosporin Allergy Mild Skin Rash Verified 12/14/24 17:56 ([id number])) methotrexate Allergy Skin Rash Verified 12/14/24 17:56 morphine Allergy Itching Verified 12/14/24 17:56 Mtdrpnr-PRD-LnA Reductase Allergy NECROTIZING Verified 12/14/24 17:56 Inhibitor (Dupttln-Hcx-Rgf MYOPATHY Reductase Inhibitor) General Stated Complaint: SOB AURA: 3 Review of Systems Narrative: Review of systems are negative except as mentioned. Exam Narrative Exam Narrative: General appearance: The patient is alert, has no immediate need for airway protection and no signs of toxicity. HEENT: Oral mucosal membranes are dry. Respiratory: There are no retractions however he has diminished lung sounds bilaterally. Cardiovascular: Regular in rate and rhythm. Radial pulses are intact and equal. Gastrointestinal: The abdomen is soft and nondistended with normal bowel sounds. Nontender to palpation throughout. Neurological: The patient is alert, awake and oriented x 3. Skin: Warm and dry. Extremities: The patient has bilateral pitting lower extremity edema. Course Vital Signs Vital signs: Vital Signs Temperature 36.9 C 12/14/24 17:58 Pulse 68 12/14/24 17:58 Respiratory Rate 18 12/14/24 17:58 Blood Pressure 124/62 12/14/24 17:58 Pulse Oximetry 95 12/14/24 17:58 Temperature 36.9 C 12/14/24 17:58 Temperature Source Oral 12/14/24 17:58 Pulse 68 12/14/24 17:58 Respiratory Rate 18 12/14/24 17:58 Blood Pressure 124/62 12/14/24 17:58 Pulse Oximetry 95 12/14/24 17:58 Oxygen Delivery Method Room Air 12/14/24 17:58 Oxygen Flow Rate 0 12/14/24 17:58 Pain Level 8 12/14/24 17:58 Medical Decision Making I reviewed the patient's recent pulmonology note through [facility]. The patient was referred to Pulmonology regarding ongoing dyspnea. Plan was to do a thoracentesis, addition of Bumex to the patient's existing Torsemide. A diagnostic/therapeutic thoracentesis was pursued. I do not yet have the microbiology or pathology result from that procedure. Cardiac workup has been started on this patient in the meantime. EKG is done and it is nondiagnostic. The patient's blood work is back. He has multiple abnormalities including his renal function, troponin and BNP however all of these are baseline for him and in fact troponin is improved today from prior. Chest x-ray continues to show fluid in the lungs although with some improvement. The patient insist that the fluid was removed out of his right lung and not the left. I have since updated the patient and his of workup result. The patient reports that he had relief after 2 L of fluid was removed but again reports that he was back to being symptomatic just this Saturday with worsening edema. Patient does not need emergent thoracentesis tonight however med optimization is recommended. The patient is already on torsemide and with poor renal function I told him plan of more diuretic but I am only giving him a small dose in the ED. Ultimately I informed the patient and his of my recommendation for hospitalization and they agree. Imaging Data Radiologic Study: Imaging: X-Ray (Chest x-ray) Radiologist's impression: Mild interval improvement of small left pleural effusion and left basilar infiltrate. ECG Data Attestation: I personally reviewed and interpreted this ECG (s) as follows: (Sinus rhythm at a rate of 69 with a with LBBB with appropriate ST discordance) PFSH All Active Problems (Updated 12/14/24 @ 21:46 by EDDA HOUSE) Pneumonia (Acute) CKD (chronic kidney disease) stage 4, GFR 15-29 ml/min (Acute) Pancytopenia, acquired (Chronic) Shortness of breath (Acute) Pleural effusion (Acute) Restrictive airway disease (Acute) Sleep apnea (Acute) Ulcer of right foot limited to breakdown of skin (Acute) Hammertoe of right foot (Acute) Osteomyelitis (Acute) Mucocele of tonsil (Acute) Venous stasis ulcer of right ankle limited to breakdown of skin (Acute) Venous insufficiency (Acute) Acute kidney injury superimposed on chronic kidney disease (Acute) Vascular device, implant, or graft infection or inflammation (Acute) MRSA bacteremia (Acute) Surgical site infection (Acute) History of incision and drainage (Acute) Pleural effusion due to CHF (congestive heart failure) (Acute) Anemia due to stage 3 chronic kidney disease (Chronic) CKD (chronic kidney disease) stage 3, GFR 30-59 ml/min (Chronic) Adverse effect of statin (Acute) 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 Baseline is around 70,000 Lower extremity cellulitis (Acute) Renal insufficiency (Chronic) Impacted cerumen of both ears (Acute) HTN (hypertension) (Chronic) Cirrhosis of liver (Chronic) Myopathy (Acute) Hearing deficit (Acute) Epistaxis (Acute) Chronic anemia (Chronic) Per Dr. Melendez due to iron deficiency. Venofer 300mg every 3months. Cannot follow ferritin due to myopathy causing nonspecific inflammation. 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 Patient receives IVIG over 2 days every 4 weeks. Patient has never tolerated discontinuation Cellulitis Elevated troponin level not due myocardial infarction Bacteremia Acute on chronic renal insufficiency Subclavian vein thrombosis Barretts esophagus Hyperlipidemia Other pancytopenia History of shingles Nonalcoholic steatohepatitis History of deep vein thrombosis Anemia Hypomagnesemia Diabetic ulcer of right foot Acute non-ST segment elevation myocardial infarction Sepsis Vasculitis Obesity Basal cell carcinoma, face Duodenitis Pancytopenia Shingles DVT (deep venous thrombosis) Pulmonary embolism Gout NSTEMI (non-ST elevated myocardial infarction) Chronic kidney disease Cardiomyopathy 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 Sister Diabetes PATERNAL UNCLE Personal history of malignant neoplasm STOMACH Social History Smoking/Tobacco Use Status: Never Smoking risk assessment performed?: Yes Alcohol Intake: never Drug use: Never Substance use type: does not use Housing: house Do you feel safe at home: Yes Do you feel safe in your relationship?: Yes
--- NOTE | 2024-12-14 18:59 | DI.RAD_ITS ---
Exam(s) XR PORTABLE CHEST AP EXAM: XR PORTABLE CHEST AP CLINICAL HISTORY: shortness of breath TECHNIQUE: 2D digital imaging was performed. COMPARISON: CR XR CHEST 2V PA LATERAL from 09/12/2024 CR XR PORTABLE CHEST AP from 12/10/2024 FINDINGS: Exam is limited by semi upright positioning and under penetration at the lung bases. There is a small left pleural effusion may which may be slightly smaller than on the previous exam. Increased densities are again noted at the left lung base. The heart is enlarged. The pulmonary vasculature is prominent. A port is noted over the right upper chest with tip in right atrium. IMPRESSION: Mild interval improvement of small left pleural effusion and left basilar infiltrate. DATA REPOSITORY: RADIATION DOSE DELIVERED:
[2024-12-14 19:01] LABS: Abs Immature Grans 0.01 10^3/uL (0.0-0.06); HCT 33.9 % (40.0-50.0); HGB 10.7 g/dL (13.5-17.5); Immature Grans % 0.4 %; MCH 31.1 pg (27.0-33.0); MCHC 31.6 % (32.0-36.0); MCV 99 fL (80-95); RBC 3.44 10^6/uL (4.36-5.78); RDW 17.3 % (11.8-14.1); RDW-SD 62.5 fL; WBC 2.78 10^3/uL (4.4-10.8)
[2024-12-14 19:14] LABS: INR 1.2 (0.9-1.1); PTT Activated 26.6 sec (20.6-30.2); Prothrombin Time 11.6 sec (9.1-11.1)
[2024-12-14 19:17] LABS: Platelet Count 37 10^3/uL (130-400)
[2024-12-14 19:18] LABS: ALT 34 U/L (16-63); AST 47 U/L (15-37); Albumin 2.5 g/dL (3.4-5.0); Alkaline Phosphatase 182 U/L (46-116); Anion Gap 9.8 mmol/L (3-11); Bilirubin, Total 0.9 mg/dL (0.2-1.0); CO2 25.2 mmol/L (21.0-32.0); Calcium 8.8 mg/dL (8.5-10.1); Chloride 103 mmol/L (98-107); Estimated GFR 26.37 (mL/min/1.73m2); Glucose 136 mg/dL (74-106); NT-proBNP 9363 pg/mL (<300); Potassium 4.4 mmol/L (3.5-5.1); RBC Morphology Normal; Sodium 138 mmol/L (136-145); Total Protein 8.2 g/dL (6.4-8.2)
[2024-12-14 19:21] LABS: BUN 152 mg/dL (7-18); Troponin I 109 ng/L (<or=76)
[2024-12-14] MEDS: Furosemide 20 MG/2 ML VIAL IVP (19:59)
--- NOTE | 2024-12-14 20:35 | W.PM.HP.N ---
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 He has had problems with worsening CHF recently and does have a reduced left ventricular ejection fraction. He does need an updated echocardiogram which will be ordered. He has had recent right thoracentesis with 1.8 L withdrawn from the pleural space which did not appear infected. There is a question of a left infiltrate by radiology report but pulmonology thinks this is not significant for infection. Patient WBC is low with pancytopenia and he has no fever. As precaution was initiated on Rocephin and doxycycline until further evaluation by pulmonology and follow-up lab. He will be more aggressively diuresed which is complicated by CKD which is worsening. He does have diabetes. He is a full code. (2) HFrEF (heart failure with reduced ejection fraction): Start date: 12/14/24 Status: Chronic Assessment and plan: Fluid retention recently not responding to increased diuresis with torsemide 80 mg p.o. daily. He will be admitted for IV diuresis with Lasix 80 mg twice daily and consider nephrology consultation with guidance on more aggressive diuresis in light of CKD. Diuril IV may be needed to initiate more aggressive diuresis with IV Lasix and albumin infusion may be considered along with diuretics. Continue consultation [place]. Cruz [place] [facility] [place] (3) Pneumonia: Start date: 12/14/24 Status: Acute Assessment and plan: Question of left lower lobe infiltrate with ceftriaxone and doxycycline initiated in this compromised patient. Thoracentesis did not appear to be infectious. There may be some atelectasis with his recurrent effusions. Follow-up lab and imaging as indicated. (4) Elevated troponin: Status: Chronic Assessment and plan: This is chronic and will be trended with patient's acute decompensation. He does not appear to be having an ischemic cardiac event. His troponins may never return to normal with his CKD. (5) Sleep apnea: Status: Chronic Assessment and plan: Untreated with patient intolerant of mask over face with claustrophobia. (6) HTN (hypertension): Status: Chronic Assessment and plan: Continue outpatient medical therapy. Watch for hypotension with aggressive diuresis. (7) Cirrhosis of liver: Status: Chronic Assessment and plan: Patient states has been secondary to his autoimmune myopathy as well as probable HORTON associated with chronic diabetes. He denies any previous alcohol use. This appears to be overall stable but may contribute to hepatorenal syndrome if he continues to have problems with CHF and progressive CKD. (8) Autoimmune myopathy: Assessment and plan: Continue outpatient medical therapy and follow-up. (9) Diabetes mellitus: Assessment and plan: Glucometer measurements before meals and at bedtime while hospitalized holding Lantus and using sensitive sliding scale for short acting insulin coverage. (10) Pancytopenia, acquired: Status: Chronic Assessment and plan: This may be secondary to progressive liver disease. Monitor while hospitalized and long-term should follow-up with hematology. (11) CKD (chronic kidney disease) stage 4, GFR 15-29 ml/min: Status: Chronic Assessment and plan: Progressively worsening renal status with CHF. Consult nephrology if needed. History of Present Illness History of Present Illness Chief Complaint: Dyspnea at rest with progressive shortness of breath over 2 months. Narrative: This is a 64-year-old male patient has a history of statin induced autoimmune myopathy in 2010 with chronic cardiomyopathy worsening over the years with valvular disease and cirrhosis which he states is from medications. He now has pancytopenia and worsening CHF with peripheral edema and chronic ulcers over his right leg with Pedro wraps as well as pleural effusion with a right thoracentesis draining 1.8 L 12/10/2024. He has not had a recent echocardiogram the last echocardiogram in May 2024 did show reduced left ventricular ejection fraction with valvular disease. He is on higher dose of torsemide at 80 mg daily which is not helping with his fluid retention or his worsening dyspnea. He also has CKD with progressive disease, chronic elevation of his troponin which appears improved from previous measurements and no chest pain or discomfort with his chronic cough, and diabetes on insulin treatment with fair control. He does see pulmonology as well as cardiology and has had recent visits. He is not hypoxic but is tachypneic presently which is worsening. He also has a dry cough which has been there for 2 months but worsening. He is open to hemodialysis if needed and does want CPR and intubation with attempted resuscitation but knows that his prognosis is poor if he has acute cardiopulmonary arrest. He does have sleep apnea and is obese but cannot tolerate positive pressure treatment with claustrophobia and being unable to tolerate mask over the space. He denies any previous alcohol use. He has had no recent fever and no production of sputum with his dry cough. He denies any chest pain but is short of breath. In the ED the patient was found to have possible left lower lobe infiltrate and no reaccumulation of his right pleural effusion with slight improvement of his left pleural effusion with no mention of right pleural effusion for comparison by chest x-ray. His BNP was stable. As stated, the patient is a full code. Review of Systems Narrative: 13 point review of systems otherwise unrevealing or stable. Patient has no abdominal complaints or urinary complaints. [facility] All Active Problems (Updated 12/15/24 @ 08:25 by Chris Espana) Pneumonia (Acute) CKD (chronic kidney disease) stage 4, GFR 15-29 ml/min (Chronic) Pancytopenia, acquired (Chronic) Shortness of breath (Acute) Pleural effusion (Acute) Restrictive airway disease (Acute) Sleep apnea (Chronic) Ulcer of right foot limited to breakdown of skin (Acute) Hammertoe of right foot (Acute) Osteomyelitis (Acute) Mucocele of tonsil (Acute) Venous stasis ulcer of right ankle limited to breakdown of skin (Acute) Venous insufficiency (Acute) Acute kidney injury superimposed on chronic kidney disease (Acute) Vascular device, implant, or graft infection or inflammation (Acute) MRSA bacteremia (Acute) Surgical site infection (Acute) History of incision and drainage (Acute) Pleural effusion due to CHF (congestive heart failure) (Acute) Anemia due to stage 3 chronic kidney disease (Chronic) CKD (chronic kidney disease) stage 3, GFR 30-59 ml/min (Chronic) Adverse effect of statin (Acute) 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 Baseline is around 70,000 Lower extremity cellulitis (Acute) Renal insufficiency (Chronic) Impacted cerumen of both ears (Acute) HTN (hypertension) (Chronic) Cirrhosis of liver (Chronic) Myopathy (Acute) Hearing deficit (Acute) Epistaxis (Acute) Chronic anemia (Chronic) Per Dr. Melendez due to iron deficiency. Venofer 300mg every 3months. Cannot follow ferritin due to myopathy causing nonspecific inflammation. 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 Patient receives IVIG over 2 days every 4 weeks. Patient has never tolerated discontinuation Cellulitis Elevated troponin level not due myocardial infarction Bacteremia Acute on chronic renal insufficiency Subclavian vein thrombosis Barretts esophagus Hyperlipidemia Other pancytopenia History of shingles Nonalcoholic steatohepatitis History of deep vein thrombosis Anemia Hypomagnesemia Diabetic ulcer of right foot Acute non-ST segment elevation myocardial infarction Sepsis Vasculitis Obesity Basal cell carcinoma, face Duodenitis Pancytopenia Shingles DVT (deep venous thrombosis) Pulmonary embolism Gout NSTEMI (non-ST elevated myocardial infarction) Chronic kidney disease Cardiomyopathy 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 Sister Diabetes PATERNAL UNCLE Personal history of malignant neoplasm STOMACH Social History Smoking/Tobacco Use Status: Never Smoking risk assessment performed?: Yes Alcohol Intake: never Drug use: Never Substance use type: does not use Housing: house Do you feel safe at home: Yes Do you feel safe in your relationship?: Yes Meds Allergies and Home Medications Allergies Allergy/AdvReac Type Severity Reaction Status Date / Time bacitracin (From Neosporin Allergy Mild Skin Rash Verified 12/14/24 17:56 ([id number])) neomycin (From Neosporin Allergy Mild Skin Rash Verified 12/14/24 17:56 ([id number])) polymyxin B (From Neosporin Allergy Mild Skin Rash Verified 12/14/24 17:56 ([id number])) methotrexate Allergy Skin Rash Verified 12/14/24 17:56 morphine Allergy Itching Verified 12/14/24 17:56 Bpfkazh-UZF-GdH Reductase Allergy NECROTIZING Verified 12/14/24 17:56 Inhibitor (Czqlmbk-Cby-Mgh MYOPATHY Reductase Inhibitor) Home Medications ?Medication ?Instructions ?Recorded ?Confirmed ?Type Gamaguard Ivig See Rx Instructions .Route .COMPLEX 09/18/12 12/14/24 History multivitamin (Daily Multi-Vitamin 1 tab PO DAILY 11/23/13 12/14/24 History tablet) aspirin 81 mg tablet,delayed 81 mg PO DAILY #100 tabs 04/12/21 12/14/24 Rx release magnesium oxide 400 mg (241.3 mg 400 mg PO BID #60 tabs 04/12/21 12/14/24 Rx magnesium) tablet nitroglycerin 0.4 mg sublingual 0.4 mg sublingual Q5-15M PRN #30 04/12/21 12/14/24 Rx tablet tabs darbepoetin matt in polysorbat 60 60 mcg IV Q2W PRN 04/20/21 12/14/24 History mcg/mL in polysorbate injection (Aranesp) ondansetron 4 mg disintegrating 4 mg PO BID PRN 04/24/21 12/14/24 History tablet (Zofran ODT) sodium chloride-aloe vera nasal 1 applic topical QID PRN 07/16/22 12/14/24 History gel (Crandall Saline nasal gel) IV infusion pump accessory 09/12/22 12/09/24 History blood-glucose meter 09/12/22 12/09/24 History colchicine 0.6 mg tablet 0.6 mg PO DIRECTED 09/12/22 12/14/24 History sodium chloride 0.9 % (flush) 10 ml IV QWEEK 09/12/22 12/14/24 History iron sucrose 200 mg iron/10 mL 300 mg IV .12 weeks PRN 01/15/23 12/14/24 History intravenous solution (Venofer) insulin lispro-aabc 100 unit/mL 20 unit subcut QACLUNCH 11/07/23 12/14/24 History subcutaneous pen (Lyumjev KwikPen U-100 Insulin) allopurinol 100 mg tablet 200 mg (2 x 100 mg) PO DAILY #0 01/09/24 12/14/24 Rx tabs insulin glargine 100 unit/mL (3 12 unit (0.12 mL) subcut DAILY #0 01/09/24 12/14/24 Rx mL) subcutaneous pen (Lantus mL Solostar U-100 Insulin) docusate sodium 100 mg capsule 100 mg PO TID PRN 01/29/24 12/14/24 History (Colace) losartan 50 mg tablet 50 mg PO DAILY 02/06/24 12/14/24 History carvedilol 12.5 mg tablet 12.5 mg PO BID #180 tabs 07/24/24 12/14/24 Rx levalbuterol tartrate 45 2 inh inhalation Q6H 10/22/24 12/14/24 History mcg/actuation aerosol inhaler (Xopenex HFA) torsemide 20 mg tablet 80 mg (4 x 20 mg) PO DAILY #240 11/30/24 12/14/24 Rx tabs Exam Narrative Exam Narrative: General: Patient appears chronically ill and appropriate for age. Moderate distress with resting dyspnea. Alert and oriented x 3. He is speaking in short sentences. HEENT: Normocephalic, eyes with pupils equal and reactive to light symmetrically, extraocular movement intact and sclera anicteric. Oropharynx with dry mucosa. Neck: Supple without JVD. Back: Stooped posture without CVA tenderness. Patient has difficulty sitting up in bed for exam. Lungs: Decreased aeration left base with occasional coarse crackle but no focalizing rales. No increased expiratory phase or expiratory wheeze. Bronchovesicular breath sounds diffusely with fair aeration overall. Port over right anterior chest. Breast: Exam deferred. Heart: Regular rate and rhythm with 4/6 systolic murmur over left sternal border. No gallops appreciated. Abdomen: Obese contour, soft and nontender to palpation with no palpable hepatosplenomegaly. Bowel sounds positive all quadrants. Genitalia/rectal: Exam deferred. Extremities: 3+ pitting edema lower extremity with chronic skin changes especially over the right leg with oozing previous stasis ulcers stage II and minimal erythema increased warmth to touch over surrounding skin with most of the lesions over the anterior tibialis area of the right leg. Left leg has skin changes without large ulcers but small scabbed over punctate ulcers noted. No cyanosis or clubbing. Skin: Skin changes over right leg with ulcers noted, otherwise pale, warm and dry. Neuro: Cranial nerves II through XII gross intact, no focalized motor deficits. No tremor. Psych: Flattened affect with depressed mood. No abnormal thought processes. Remote and recent memory grossly intact. Results Imaging Imaging Studies: EXAM: XR PORTABLE CHEST AP CLINICAL HISTORY: shortness of breath TECHNIQUE: 2D digital imaging was performed. COMPARISON: CR XR CHEST 2V PA LATERAL from 09/12/2024 CR XR PORTABLE CHEST AP from 12/10/2024 FINDINGS: Exam is limited by semi upright positioning and under penetration at the lung bases. There is a small left pleural effusion may which may be slightly smaller than on the previous exam. Increased densities are again noted at the left lung base. The heart is enlarged. The pulmonary vasculature is prominent. A port is noted over the right upper chest with tip in right atrium. IMPRESSION: Mild interval improvement of small left pleural effusion and left basilar infiltrate. Date of exam: 05/11/2024 EXAM: Comprehensive 2D, Doppler, and color-flow Echocardiogram Patient Location: Out-Patient [employer] Specialist: Darryl Gongora RDCS (AE) Indications: s/p TAVR Conclusion Dilated left ventricle. EF is 25 to 30% with global hypokinesis Moderately enlarged right ventricle Both atria are moderately dilated Aortic valve is sclerotic and trileaflet with mild to moderate aortic stenosis. Peak gradient is 35, mean 21 mmHg. Calculated aortic valve area is 1.1 cm??. There is mild aortic regurgitation Mildly thickened mitral leaflets, mild mitral regurgitation Mild tricuspid regurgitation. Estimated right ventricular systolic pressure is 21 mmHg Labs 12/15/24 06:30 12/15/24 06:30 Labs: Laboratory Results - last 24 hr 12/14/24 18:45 WBC 2.78 L RBC 3.44 L Hgb 10.7 L Hct 33.9 L MCV 99 H MCH 31.1 MCHC 31.6 L RDW 17.3 H Plt Count 37 L MPV Immature Gran % 0.4 Neutrophils % 60.0 Lymphocytes % 11.2 Monocytes % 11.9 Eosinophils % 15.1 Basophils % 1.4 Nucleated RBC % 0.0 Absolute Neutrophils 1.67 Absolute Lymphocytes 0.31 L Absolute Monocytes 0.33 Absolute Eosinophils 0.42 Absolute Basophils 0.04 RBC Morphology Normal PT 11.6 H INR 1.2 H APTT 26.6 Sodium 138 Potassium 4.4 Chloride 103 Carbon Dioxide 25.2 Anion Gap 9.8 BUN 152 H* Creatinine 2.6 H Est GFR (CKD-EPI 2020) 26.37 Glucose 136 H Calcium 8.8 Total Bilirubin 0.9 AST 47 H ALT 34 Alkaline Phosphatase 182 H Troponin I 109 H* NT-Pro-B Natriuret Pep 9363 H Total Protein 8.2 Albumin 2.5 L Last Vital Signs Temp 36.9 C 12/14/24 17:58 Pulse 68 12/14/24 17:58 Resp 18 12/14/24 17:58 BP 124/62 12/14/24 17:58 Pulse Ox 95 12/14/24 17:58 Time Spent Time spent with Patient: >75 minutes Time was spent: preparing to see the patient(eg.review tests), obtaining and/or reviewing separately otained hiistory, ordering medications,tests, procedures, indepentently interpreting results, counseling the patient and care coordination
--- NOTE | 2024-12-14 21:36 | W.PC.ACHO ---
Registration Status: REG ER Primary Language: Preferred Language: Turkmen ED Information & Data Chief Complaint SOB 12/14/24 18:32 Triage Note pt arrives per wheelchair 12/14/24 17:[address] Holder and Dr. Cruz told him to come in to be admitted to have fluid removed from his lungs. Pt states last just had 2 liters removed from his lungs in Day surgery. Medical / Surgical History (Last Reviewed 12/14/24 @ 20:35 by Chris Espana) Abscess of muscle of back Autoimmune myopathy Cellulitis Elevated troponin level not due myocardial infarction Bacteremia Acute on chronic renal insufficiency Subclavian vein thrombosis Barretts esophagus Hyperlipidemia Other pancytopenia History of shingles Nonalcoholic steatohepatitis History of deep vein thrombosis Anemia Hypomagnesemia Diabetic ulcer of right foot Acute non-ST segment elevation myocardial infarction Sepsis Vasculitis Obesity Basal cell carcinoma, face Duodenitis Pancytopenia Shingles DVT (deep venous thrombosis) Pulmonary embolism Gout NSTEMI (non-ST elevated myocardial infarction) Chronic kidney disease Cardiomyopathy MYOPATHY DUE TO DRUGS Hypercholesterolemia Diabetes mellitus Inclusion body myositis Kidney stone Essential hypertension (Last Reviewed 12/14/24 @ 20:35 by Chris Espana) History of colonoscopy POWER PORT MUSCLE BIOPSY LITHOTRIPSY Repair of umbilical hernia EGD - MAC (~2009) Colonoscopy - MAC (~2009) Most Recent Vital Signs Temperature 36.9 C 12/14/24 17:58 Temperature Source Oral 12/14/24 17:58 Pulse 68 12/14/24 17:58 Respiratory Rate 18 12/14/24 17:58 Blood Pressure 124/62 12/14/24 17:58 Pulse Oximetry 95 12/14/24 17:58 Oxygen Delivery Method Room Air 12/14/24 17:58 Oxygen Flow Rate 0 12/14/24 17:58 Pain Level 8 12/14/24 17:58 Allergies bacitracin (From Neosporin ([id number])) Allergy (Mild, Verified 12/14/24 17:56) Skin Rash neomycin (From Neosporin ([id number])) Allergy (Mild, Verified 12/14/24 17:56) Skin Rash polymyxin B (From Neosporin ([id number])) Allergy (Mild, Verified 12/14/24 17:56) Skin Rash methotrexate Allergy (Verified 12/14/24 17:56) Skin Rash morphine Allergy (Verified 12/14/24 17:56) Itching Swwoxxd-KJV-LuV Reductase Inhibitor (Suofege-Wwu-Bjm Reductase Inhibitor) Allergy (Verified 12/14/24 17:56) NECROTIZING MYOPATHY Precautions Isolation Standard precaution 12/14/24 18:02 IV IV Catheter Type [Right Medial Port-a-cath (single) Port] IV Catheter Gauge [Right 20 Medial Port] Diagnostics 12/14/24 12/14/24 Range/Units 21:12 18:45 WBC 2.78 L (4.4-10.8) 10^3/uL RBC 3.44 L (4.36-5.78) 10^6/uL Hgb 10.7 L (13.5-17.5) g/dL Hct 33.9 L (40.0-50.0) % MCV 99 H (80-95) fL MCH 31.1 (27.0-33.0) pg MCHC 31.6 L (32.0-36.0) % RDW 17.3 H (11.8-14.1) % Plt Count 37 L (130-400) 10^3/uL MPV (8.0-11.0) fL Immature Gran % 0.4 % Neutrophils % 60.0 % Lymphocytes % 11.2 % Monocytes % 11.9 % Eosinophils % 15.1 % Basophils % 1.4 % Nucleated RBC % 0.0 (0.0-0.3) % Absolute Neutrophils 1.67 (1.2-6.7) 10^3/uL Absolute Lymphocytes 0.31 L (1.2-3.4) 10^3/uL Absolute Monocytes 0.33 (0.1-0.8) 10^3/uL Absolute Eosinophils 0.42 (0.0-0.7) 10^3/uL Absolute Basophils 0.04 (0.0-0.2) 10^3/uL RBC Morphology Normal PT 11.6 H (9.1-11.1) sec INR 1.2 H (0.9-1.1) APTT 26.6 (20.6-30.2) sec Sodium 138 (136-145) mmol/L Potassium 4.4 (3.5-5.1) mmol/L Chloride 103 (98-107) mmol/L Carbon Dioxide 25.2 (21.0-32.0) mmol/L Anion Gap 9.8 (3-11) mmol/L BUN 152 H* (7-18) mg/dL Creatinine 2.6 H (0.70-1.30) mg/dL Est GFR (CKD-EPI 2020) 26.37 (mL/min/1.73m2) Glucose 136 H (74-106) mg/dL Calcium 8.8 (8.5-10.1) mg/dL Total Bilirubin 0.9 (0.2-1.0) mg/dL AST 47 H (15-37) U/L ALT 34 (16-63) U/L Alkaline Phosphatase 182 H (46-116) U/L Troponin I 109 H* (<or=76) ng/L NT-Pro-B Natriuret Pep 9363 H (<300) pg/mL Total Protein 8.2 (6.4-8.2) g/dL Albumin 2.5 L (3.4-5.0) g/dL COVID-19 Source Pending SARS-CoV-2 (PCR) Pending Influenza Type A (PCR) Pending Influenza Type B (PCR) Pending RSV (PCR) Pending Intake and Output - 24 Hour Total 12/14/24 17:40 thru 12/14/24 17:58 Weight 117.934 kg Falls Risk Assessment History of Falls No History 12/14/24 18:52 Contributing Factors No Factors 12/14/24 18:52 Ambulatory Aids Independent 12/14/24 18:52 Tubes/Lines None 12/14/24 18:52 Gait Evaluation W/no contributing factors 12/14/24 18:52 Cognition No cognitive impairment 12/14/24 18:52 Fall Total Score 10 12/14/24 18:52 Level of Risk Standard/Low Risk 12/14/24 18:52 Problems (Last Reviewed 12/14/24 @ 20:35 by Chris Espana) Pneumonia (Acute) CKD (chronic kidney disease) stage 4, GFR 15-29 ml/min (Acute) Pancytopenia, acquired (Chronic) Sleep apnea (Acute) Pleural effusion due to CHF (congestive heart failure) (Acute) HFrEF (heart failure with reduced ejection fraction) (Chronic) HTN (hypertension) (Chronic) Cirrhosis of liver (Chronic) Elevated troponin (Chronic) v v v v v v v v v Sending and/or Receiving Nurses: Please use comment section below to note any information pertinent to the patient hand-off not included above. Information / Comments: Report taken from ED Nurse Mayelin, patient came in with SOB, visible fluid excess, AO, w/ productive cough, afebrile at the moment. Lasix was given. +3 bilateral lower extremities edema. Had history of post thoracentesis last and put out 2 L on right lung. All questions answered appropriately. Report received from:
[2024-12-14 21:59] LABS: COVID-19 PCR Negative (Negative); RSV PCR Negative (Negative)
[2024-12-14 22:09] LABS: Magnesium 3.3 mg/dL (1.8-2.4); TSH (W/Ref FT4) 5.05 uIU/mL (0.36-3.74)
[2024-12-14 22:20] LABS: Glucose Negative (Negative)
[2024-12-14] MEDS: Normal Saline Flush 10 ML SYR IVP (22:46)
[2024-12-14] MEDS: cefTRIAXone 1 GM/50 ML BAG IVPB (22:47)
[2024-12-14] MEDS: DOXYCYCLINE 100 MG in Normal Saline 100 ML IVPB (22:47)
[2024-12-15 00:03] VITALS: BP 121/61; TEMP 37.5
[2024-12-15] MEDS: Benzonatate 200 MG CAP PO ×2 (00:08→08:37)
[2024-12-15 02:18] VITALS: BP 99/56; PULSE 79; RESP 20; TEMP 36.8; O2SAT 95
[2024-12-15] MEDS: Levalbuterol HFA 15 GM INH 2 PUFF IH ×3 (02:33→19:59)
[2024-12-15 06:52] LABS: HCT 33.3 % (40.0-50.0); HGB 10.7 g/dL (13.5-17.5); MCH 31.4 pg (27.0-33.0); MCHC 32.1 % (32.0-36.0); MCV 98 fL (80-95); MPV 11.7 fL (8.0-11.0); RBC 3.41 10^6/uL (4.36-5.78); RDW 17.2 % (11.8-14.1); RDW-SD 62.4 fL; WBC 12.73 10^3/uL (4.4-10.8)
[2024-12-15 07:13] LABS: ALT 36 U/L (16-63); AST 42 U/L (15-37); Albumin 2.6 g/dL (3.4-5.0); Alkaline Phosphatase 165 U/L (46-116); Anion Gap 8.5 mmol/L (3-11); Bilirubin, Total 1.2 mg/dL (0.2-1.0); CO2 25.5 mmol/L (21.0-32.0); Calcium 8.8 mg/dL (8.5-10.1); Chloride 103 mmol/L (98-107); Estimated GFR 26.37 (mL/min/1.73m2); Glucose 148 mg/dL (74-106); Magnesium 3.0 mg/dL (1.8-2.4); Potassium 4.4 mmol/L (3.5-5.1); Sodium 137 mmol/L (136-145); Total Protein 8.2 g/dL (6.4-8.2)
[2024-12-15 07:21] LABS: Platelet Count 38 10^3/uL (130-400)
[2024-12-15 07:22] LABS: BUN 150 mg/dL (7-18)
[2024-12-15 07:24] LABS: Troponin I 246 ng/L (<or=76)
[2024-12-15 07:41] VITALS: BP 108/55; PULSE 78; RESP 18; TEMP 37; O2SAT 97
--- NOTE | 2024-12-15 08:00 | DI.US_ITS ---
APPROVED REPORT EXAM: Comprehensive 2D, Doppler, and color-flow Echocardiogram Patient Location: In-Patient Room/Bed: [address]: Kerry Carranza RDCS (AE) Indications: Exacerbation CHF HTN Other Information Study Quality: Fair. Technically limited study due to body habitus, inability to position patient exam done supine bedside. Conclusion Moderately dilated left ventricle. Ejection fraction is 30 to 35% with global hypokinesis Right ventricle is not well-visualized Mildly dilated left atrium Aortic valve is calcified. There is moderate aortic stenosis. Peak gradient is 41, mean 27 mmHg. Calculated aortic valve area is 1.2 cm??. There is mild aortic regurgitation Mild mitral regurgitation Estimated right ventricular systolic pressure is 39 mmHg Wall motion Left Ventricle Left ventricle is moderately dilated. Left ventricular ejection fraction is moderately decreased. There is normal left ventricular wall thickness. There is global hypokinesis of the left ventricle. There is no ventricular septal defect visualized. LVEF is 30-34%. Right Ventricle Right ventricle is not well visualized. Right ventricular systolic function could not be assessed. Atria Left atrium is mildly dilated. The right atrium size is normal. The interatrial septum is intact with no evidence for an atrial septal defect. Aortic Valve Aortic valve is calcified. Number of aortic valve leaflets could not be assessed. Moderate aortic stenosis. Peak aortic valve gradient is 41.3mmHg. Highest mean aortic valve gradient is 26.86mmHg. Calculated LILIA by the continuity equation is 1.2cm2. Mild aortic regurgitation. Mitral Valve The mitral valve is normal in structure. No evidence of mitral valve stenosis. Mild mitral regurgitation. Tricuspid Valve The tricuspid valve is normal in structure. There is no tricuspid valve stenosis. Mild tricuspid regurgitation. The RVSP is 38.7 mmHg. Pulmonic Valve The pulmonary valve is normal in structure. There is no pulmonic valvular stenosis. Mild to moderate pulmonic regurgitation. Great Vessels The aortic root is normal in size. The ascending aorta is normal in size. Aortic arch is not well visualized. The IVC collapses <50% with inspiration. Pericardium There is no pericardial effusion. 2D Dimensions IVSD d PLAX 0.80 cm M: 0.6-1.2 Ao Root d 3.11 cm M: 3.1 - 3.7 LVPW d PLAX 0.80 cm M: 0.6 - 1.2 Ao Asc Diam d 3.39 cm M: 2.6 - 3.4 LVID d PLAX 7.00 cm M: 4.2 - 5.8 LVDs 6.00 cm M: 2.5 - 4.0 LV EF Teichholz 29.6 % FS 14.34 % LV EDV (Teich) 255.8 mL LV ESV (Teich) 180.0 mL M-Mode TAPSE 1.61 cm (M/F) >1.7 Auto EF LV EDV A4C 221.4 mL LV EDV A2C 239.8 mL LV EDV BP 227.5 mL LV ESV A4C 144.9 mL LV ESV A2C 166.6 mL LV ESV BP 152.2 mL LVEF(%) A4C 34.5 % LVEF(%) A2C 30.5 % LVEF(%) BP 33.1 % LV SV A4C 76.4 ml LV SV A2C 73.2 ml LV SV BP 75.3 ml LV CO A4C 5.5 L/min LV CO A2C 5.3 L/min LV CO BP 5.4 L/min HR A4C 72.29 BPM HR A2C 72.15 BPM LV EDV Index (BP) LV Strain Long Pk Overal Avg (s) 7.31 LA Volume LA Length A4C 6.2 cm LA Length A2C 5.6 cm LA Area A4C s 22.25 cm2 LA Area A2C s 26.03 cm2 LA Vol A4C A-L 68.28 mL LA Vol A2C A-L 102.47 mL LA Vol Biplane A- L 87.6 mL LA Vol/BSA A4C A-L LA Vol/BSA A2C A-L LA Vol/BSA BP A-L 37.4 mL/m2 LA Vol A4C MOD 63.1 mL LA Vol A2C MOD 96.9 mL LA Vol BP MOD 81.3 mL RA Volume RA Area A4C 19.5 cm2 RA ESV A4C (A-L) 65.2mL RA Vol/BSA A4C A-L RA Length A4C 5.0 cm RA ESV A4C (MOD) 60.1mL LV Diastology MV E' lateral 0.077 (>0.1 m/s) MV E Vmax 1.22 (0.4-1.3 m/s) MV E/E' LAT 15.91 (<14) MV A Vmax 0.35 (0.4-1.3 m/s) E/A Ratio 3.5 Aortic Valve AoV Vmax 3.21 m/s LVOT Vmax 1.16 m/s AoV Peak Grad 41.3 mmHg LVOT Peak Grad 5.4 mmHg AoV Area (Vmax) 1.17 cm2 LVOT VTI 0.302 m AoV VTI 0.784 m LVOT Mean Grad 3.7 mmHg AoV Mean Volodymyr. 2.48 m/s LVOT SV 97.71 mL AoV Mean Grad 26.9 mmHg LVOT Diam s 2.00 cm AoV Area (VTI) 1.25 cm2 AV Regurg Peak Gr. 41.30 mmHg Velocity Ratio 0.36 Mitral Valve MV DT 99 (160-240 msec) MV Vmax TIPS 1.22 m/s MV Mean Grad 1.6 (<2mmHg) MV VTI 0.293 m Pulmonary Valve PV Vmax 0.87 (0.5-1.5 m/s) RVOT Vmax 0.77 m/s PV Peak Grad 3.0 mmHg RVOT Peak Gr. 2.4 mmHg PV Mean Volodymyr 0.62 m/s RVOT VTI 0.157 m PV Mean Grad 1.8 mmHg RVOT Mean Gr. 1.2 mmHg Tricuspid Valve RA Pressure 8.00 mmHg TR Vmax 2.77 m/s TV S' 0.11 m/s TR Peak Grad 30.6 mmHg RVSP (TR) 38.7 mmHg
[2024-12-15] MEDS: Allopurinol 100 MG TAB 200 MG PO (08:37)
[2024-12-15] MEDS: Aspirin E.C. 81 MG TABEC PO (08:37)
[2024-12-15] MEDS: Losartan 50 MG TAB PO (08:37)
[2024-12-15] MEDS: Multivitamin TAB 1 TAB PO (08:38)
[2024-12-15] MEDS: Carvedilol 12.5 MG TAB PO ×2 (08:38→20:05)
[2024-12-15 08:51] VITALS: BP 105/62
[2024-12-15] MEDS: Normal Saline Flush 10 ML SYR IVP ×2 (09:17→20:06)
[2024-12-15] MEDS: Furosemide 100 MG/10 ML VIAL 80 MG IVP ×2 (10:18→16:32)
[2024-12-15] MEDS: DOXYCYCLINE 100 MG in Normal Saline 100 ML IVPB ×2 (10:19→21:56)
[2024-12-15] MEDS: Insulin Aspart 300 UNITS/3 ML PEN SC (12:19)
[2024-12-15] MEDS: Gabapentin 100 MG CAP PO (14:20)
--- NOTE | 2024-12-15 15:16 | PGE_ITS ---
Date of Service Date of service: 12/15/24 Time of Service: 08:30 Assessment and Plan Assessment and plan (1) Pleural effusion due to CHF (congestive heart failure): Status: Acute Assessment and plan: Thoracentesis December 12 removed 1.8 L fluid, transudative per Dr Douglass Awaiting echocardiogram Appreciate pulmonology recommendations Will diurese to dry weight (2) HFrEF (heart failure with reduced ejection fraction): Status: Chronic Assessment and plan: Chronic fluid retention despite GDMT Diuresing with furosemide initially 80 BID now 40 BID IV Consider cardiology consult (3) Pneumonia: Status: Acute Assessment and plan: Possible LLL infiltrate Continue ceftriaxone and doxycycline (4) Elevated troponin: Status: Chronic Assessment and plan: Chronic, due to CKD and cardiomyopathy (5) Sleep apnea: Status: Chronic Assessment and plan: Patient unable to tolerate CPAP (6) HTN (hypertension): Status: Chronic Assessment and plan: Continue home regimen (7) Cirrhosis of liver: Status: Chronic Assessment and plan: Reportedly secondary to autoimmune myopathy, possible HORTON No history of EtOH abuse (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 Acevedo is resting comfortably. He has a persistent dry cough which bothers him. Exam Narrative Exam Narrative: General: This is a pleasant man in mild distress due to cough HEENT: Normocephalic, atraumatic CV: RRR. BLE 2+ pitting edema Resp: Diminished bibasilar breath sounds, no increased work of breathing Abd: NTND +NBS MSK: Voluntary motion x4 Neuro: Awake and alert, no focal deficits Objective Last Vital Signs Temp 37.0 C 12/15/24 07:41 Pulse 78 12/15/24 07:41 Resp 18 12/15/24 07:41 BP 105/62 12/15/24 08:51 Pulse Ox 97 12/15/24 07:41 Laboratory Results - last 24 hr 12/14/24 12/14/24 12/14/24 18:45 18:47 21:12 WBC 2.78 L RBC 3.44 L Hgb 10.7 L Hct 33.9 L MCV 99 H MCH 31.1 MCHC 31.6 L RDW 17.3 H Plt Count 37 L MPV Immature Gran % 0.4 Neutrophils % 60.0 Lymphocytes % 11.2 Monocytes % 11.9 Eosinophils % 15.1 Basophils % 1.4 Nucleated RBC % 0.0 Absolute Neutrophils 1.67 Absolute Lymphocytes 0.31 L Absolute Monocytes 0.33 Absolute Eosinophils 0.42 Absolute Basophils 0.04 RBC Morphology Normal PT 11.6 H INR 1.2 H APTT 26.6 Sodium 138 Potassium 4.4 Chloride 103 Carbon Dioxide 25.2 Anion Gap 9.8 BUN 152 H* Creatinine 2.6 H Est GFR (CKD-EPI 2020) 26.37 Glucose 136 H Calcium 8.8 Magnesium 3.3 H Total Bilirubin 0.9 AST 47 H ALT 34 Alkaline Phosphatase 182 H Troponin I 109 H* NT-Pro-B Natriuret Pep 9363 H Total Protein 8.2 Albumin 2.5 L TSH 5.05 H Free T4 1.27 Urine Color Urine Clarity Urine pH Ur Specific [place] Urine Protein Urine Ketones Urine Blood Urine Nitrite Urine Bilirubin Urine Urobilinogen Ur Leukocyte Esterase Urine Glucose COVID-19 Source Nasopharynx SARS-CoV-2 (PCR) Negative Influenza Type A (PCR) Negative Influenza Type B (PCR) Negative RSV (PCR) Negative 12/14/24 12/15/24 22:00 06:30 WBC 12.73 H RBC 3.41 L Hgb 10.7 L Hct 33.3 L MCV 98 H MCH 31.4 MCHC 32.1 RDW 17.2 H Plt Count 38 L MPV 11.7 H Immature Gran % Neutrophils % Lymphocytes % Monocytes % Eosinophils % Basophils % Nucleated RBC % Absolute Neutrophils Absolute Lymphocytes Absolute Monocytes Absolute Eosinophils Absolute Basophils RBC Morphology PT INR APTT Sodium 137 Potassium 4.4 Chloride 103 Carbon Dioxide 25.5 Anion Gap 8.5 BUN 150 H* Creatinine 2.6 H Est GFR (CKD-EPI 2020) 26.37 Glucose 148 H Calcium 8.8 Magnesium 3.0 H Total Bilirubin 1.2 H AST 42 H ALT 36 Alkaline Phosphatase 165 H Troponin I 246 H* NT-Pro-B Natriuret Pep Total Protein 8.2 Albumin 2.6 L TSH Free T4 Urine Color Yellow Urine Clarity Clear Urine pH 5.5 Ur Specific [place] 1.010 Urine Protein Negative Urine Ketones Negative Urine Blood Negative Urine Nitrite Negative Urine Bilirubin Negative Urine Urobilinogen 0.2 Ur Leukocyte Esterase Negative Urine Glucose Negative COVID-19 Source SARS-CoV-2 (PCR) Influenza Type A (PCR) Influenza Type B (PCR) RSV (PCR) Time Spent with Patient Time Spent with Patient: 25-34 minutes Time was spent: preparing to see the patient(eg.review tests), obtaining and/or reviewing separately otained hiistory, ordering medications,tests, procedures, referring, communicating with other health adult day care worker, indepentently interpreting results, counseling the patient and care coordination
[2024-12-15 15:43] VITALS: BP 107/60; PULSE 74; RESP 18; TEMP 37; O2SAT 95
--- NOTE | 2024-12-15 17:21 | PDOC.CMIN ---
Date of service: 12/15/24 Time of Service: 17:21 Care Management Initial Assmt Initial Assessment Reason for Hospitalization: CHF exacerbation, PE, pneumonia Functional Status/Living Situation Patient Presentation: Les was sitting up in his chair eating lunch when CM met with him. He stated that he lives in [place] with his , Bethanie; they have four adult sons and eleven grandchildren, who are all fairly local. He stated that he was on disability since 2010, but is now considered retired, and has MCR. 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 He was coughing during the visit, and stated that he had a tickle in his throat; CM offered to get his RN, which he declined. Per report, he has been short of breath for 2 months, and is being followed by pulmonology now. Per report, he will remain at [facility] for diuresis, and then will likely discharge home. He stated that he is independent at baseline. CM will continue to follow. Town of Residence: [place] Resides with: Spouse Natural Supports: , Bethanie four children eleven grandchildren Employment Status: Retired Instrumental Activities of Daily Living (ADLs): Independent Medications Medication Management: No Issues/Barriers identified Advance Directives Advance Directives: Do you have an Advance Directive: Y 11/30/24, 09:55 AD On File at [facility]: Y 11/30/24, 09:55 Date Asked 01/04/24 11/30/24, 09:55 AD Date Reviewed 12/14/24 12/14/24, 18:16 COLST On File at [facility] No 11/30/24, 09:55 COLST Date Scanned Code Status Resuscitation Status Full Code Insurance Coverage/Financial Issues Insurance: [facility] Care Team Visit Care Team Role Provider Type Federico Laurent MD MD [facility] STAFF PHYSICIAN Jazmine Baer MD Primary Care Provider [facility] STAFF PHYSICIAN Kathleen Chen DO Emergency Provider [facility] STAFF PHYSICIAN Chris Espana Admit Provider NON-[facility] STAFF PHYSICIAN Attending Provider Discharge Potential Discharge Needs: PCP F/U Appt Anticipated Barriers to Discharge: None Identified Patient/Family Education Needs: Review discharge instructions, discuss Ask Me Three Transportation: Private vehicle Plan: Anticipate Les will return home once medically cleared. His will drive him home via private vehicle. He will follow up with his PCP and discharge plan of care. CM will continue to follow. Social Determinants of Health Screening Social Determinants of health last assessed in clinic: 12/15/24 Will the Patient Participate in the Screening?: Yes Do you worry about having a steady place to live?: no Problems where you live: no known problems In the past 12 months, have you had to go without electric, gas, oil or water in your home?: no 1. Within the past 12 months, we worried whether our food would run out before we got money to buy more.: Don't know/refused 2. Within the past 12 months, the food we bought just didn't last and we didn't have money to get more.: Don't know/refused Has lack of transportation kept you from medical appointments or from doing things needed for daily living?: no Has anyone in your life made you feel unsafe or unsupported?: no How hard is it for you to pay for the very basics like food, housing, medical care, and heating? Would you say it is:: Not hard at all Do you want help finding or keeping work or a job?: I do not need or want help If for any reason you need help with day-to-day activities such as bathing, preparing meals, shopping, managing finances, etc., do you get the help you need?: I get all the help I need How often do you feel lonely or isolated from those around you?: Never Do you speak a language other than Italian at home?: No Does the patient want assistance with any of the above?: No Health Related Social Needs Health related social needs details: had home health services last year,August. but patient discontinued the service, not satisfied.! PFSH All Active Problems (Updated 12/15/24 @ 08:25 by Chris Espana) Pneumonia (Acute) CKD (chronic kidney disease) stage 4, GFR 15-29 ml/min (Chronic) Pancytopenia, acquired (Chronic) Shortness of breath (Acute) Pleural effusion (Acute) Restrictive airway disease (Acute) Sleep apnea (Chronic) Ulcer of right foot limited to breakdown of skin (Acute) Hammertoe of right foot (Acute) Osteomyelitis (Acute) Mucocele of tonsil (Acute) Venous stasis ulcer of right ankle limited to breakdown of skin (Acute) Venous insufficiency (Acute) Acute kidney injury superimposed on chronic kidney disease (Acute) Vascular device, implant, or graft infection or inflammation (Acute) MRSA bacteremia (Acute) Surgical site infection (Acute) History of incision and drainage (Acute) Pleural effusion due to CHF (congestive heart failure) (Acute) Anemia due to stage 3 chronic kidney disease (Chronic) CKD (chronic kidney disease) stage 3, GFR 30-59 ml/min (Chronic) Adverse effect of statin (Acute) 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 Baseline is around 70,000 Lower extremity cellulitis (Acute) Renal insufficiency (Chronic) Impacted cerumen of both ears (Acute) HTN (hypertension) (Chronic) Cirrhosis of liver (Chronic) Myopathy (Acute) Hearing deficit (Acute) Epistaxis (Acute) Chronic anemia (Chronic) Per Dr. Melendez due to iron deficiency. Venofer 300mg every 3months. Cannot follow ferritin due to myopathy causing nonspecific inflammation. 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 Patient receives IVIG over 2 days every 4 weeks. Patient has never tolerated discontinuation Cellulitis Elevated troponin level not due myocardial infarction Bacteremia Acute on chronic renal insufficiency Subclavian vein thrombosis Barretts esophagus Hyperlipidemia Other pancytopenia History of shingles Nonalcoholic steatohepatitis History of deep vein thrombosis Anemia Hypomagnesemia Diabetic ulcer of right foot Acute non-ST segment elevation myocardial infarction Sepsis Vasculitis Obesity Basal cell carcinoma, face Duodenitis Pancytopenia Shingles DVT (deep venous thrombosis) Pulmonary embolism Gout NSTEMI (non-ST elevated myocardial infarction) Chronic kidney disease Cardiomyopathy 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 Sister Diabetes PATERNAL UNCLE Personal history of malignant neoplasm STOMACH Social History Smoking/Tobacco Use Status: Never Smoking risk assessment performed?: Yes Alcohol Intake: never Drug use: Never Substance use type: does not use Housing: house Do you feel safe at home: Yes Do you feel safe in your relationship?: Yes
[2024-12-15] MEDS: guaiFENesin/D-METHORPHAN HB 5 ML CUP 10 ML PO (20:05)
[2024-12-15 20:06] VITALS: BP 111/98; PULSE 61; RESP 18; TEMP 36.8; O2SAT 96
[2024-12-15] MEDS: cefTRIAXone 1 GM/50 ML BAG IVPB (23:01)
[2024-12-16] VITALS (7 sets, daily range): BP systolic 96–105; BP diastolic 51–60; PULSE 60–63; RESP 14–18; TEMP 35.7–36.2; O2SAT 94–98
[2024-12-16 08:59] LABS: HCT 33.6 % (40.0-50.0); HGB 10.4 g/dL (13.5-17.5); MCH 31.1 pg (27.0-33.0); MCHC 31.0 % (32.0-36.0); MCV 101 fL (80-95); RBC 3.34 10^6/uL (4.36-5.78); RDW 17.6 % (11.8-14.1); RDW-SD 64.6 fL; WBC 3.00 10^3/uL (4.4-10.8)
[2024-12-16 09:15] LABS: ALT 30 U/L (16-63); AST 42 U/L (15-37); Albumin 2.5 g/dL (3.4-5.0); Alkaline Phosphatase 149 U/L (46-116); Anion Gap 7.0 mmol/L (3-11); Bilirubin, Total 0.7 mg/dL (0.2-1.0); CO2 25.0 mmol/L (21.0-32.0); Calcium 8.7 mg/dL (8.5-10.1); Chloride 102 mmol/L (98-107); Estimated GFR 26.37 (mL/min/1.73m2); Glucose 156 mg/dL (74-106); Magnesium 2.9 mg/dL (1.8-2.4); Potassium 4.6 mmol/L (3.5-5.1); Sodium 134 mmol/L (136-145); Total Protein 7.9 g/dL (6.4-8.2)
[2024-12-16 09:19] LABS: Platelet Count 31 10^3/uL (130-400)
[2024-12-16 09:22] LABS: BUN 161 mg/dL (7-18)
[2024-12-16 09:23] LABS: Troponin I 1473 ng/L (<or=76)
[2024-12-16] MEDS: Magnesium Oxide 400 MG TAB PO (09:49)
[2024-12-16] MEDS: Insulin Aspart 300 UNITS/3 ML PEN SC ×3 (09:55→21:34)
[2024-12-16] MEDS: Normal Saline Flush 10 ML SYR IVP ×2 (09:55→21:35)
[2024-12-16] MEDS: Aspirin E.C. 81 MG TABEC PO (09:56)
[2024-12-16] MEDS: Carvedilol 12.5 MG TAB PO ×2 (09:56→21:34)
[2024-12-16] MEDS: Multivitamin TAB 1 TAB PO (09:56)
[2024-12-16] MEDS: Allopurinol 100 MG TAB 200 MG PO (09:56)
[2024-12-16] MEDS: Losartan 50 MG TAB PO (09:56)
[2024-12-16] MEDS: DOXYCYCLINE 100 MG in Normal Saline 100 ML IVPB ×2 (12:22→21:34)
--- NOTE | 2024-12-16 14:30 | IN_ITS ---
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 Pt notes had thoracentesis with 1.8L out of the right lung on 12/10/24. Reports that he had relief with this but since 12/12/24 he has had worsening shortness of breath and worsening lower extremity edema once more. Patient diagnosed with pleural effusion, CHF, elevated troponins. Patient treated with antibiotics and admitted to [facility] unit for further medical management. PMHX: Pneumonia (Acute) CKD (chronic kidney disease) stage 4, GFR 15-29 ml/min (Chronic) Pancytopenia, acquired (Chronic) Shortness of breath (Acute) Pleural effusion (Acute) Restrictive airway disease (Acute) Sleep apnea (Chronic) Ulcer of right foot limited to breakdown of skin (Acute) Hammertoe of right foot (Acute) Osteomyelitis (Acute) Mucocele of tonsil (Acute) Venous stasis ulcer of right ankle limited to breakdown of skin (Acute) Venous insufficiency (Acute) Acute kidney injury superimposed on chronic kidney disease (Acute) Vascular device, implant, or graft infection or inflammation (Acute) MRSA bacteremia (Acute) Surgical site infection (Acute) History of incision and drainage (Acute) Pleural effusion due to CHF (congestive heart failure) (Acute) Anemia due to stage 3 chronic kidney disease (Chronic) CKD (chronic kidney disease) stage 3, GFR 30-59 ml/min (Chronic) Adverse effect of statin (Acute) 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Aortic stenosis (Chronic) Heart failure (Acute) Non-ST elevation [place] (NSTEMI) (Acute) Discharge planning issues (Acute) Encounter for deep vein thrombosis (DVT) prophylaxis (Acute) Acute bronchitis (Acute) Ulcer of foot (Acute) Thyroid nodule (Acute) Fever (Acute) HFrEF (heart failure with reduced ejection fraction) (Chronic) 08/30 EF: 23% /global wall hypokinesis/fixed apical defect nuclear stress testThrombocytopenia (Chronic) Per Dr. 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 Baseline is around 70,000Lower extremity cellulitis (Acute) Renal insufficiency (Chronic) Impacted cerumen of both ears (Acute) HTN (hypertension) (Chronic) Cirrhosis of liver (Chronic) Myopathy (Acute) Hearing deficit (Acute) Epistaxis (Acute) Chronic anemia (Chronic) Per Dr. Melendez due to iron deficiency. Venofer 300mg every 3months. Cannot follow ferritin due to myopathy causing nonspecific inflammation. Normal hemoglobin is around 10Edema (Acute) Heart murmur, systolic (Acute) CALDERON (dyspnea on exertion) (Acute) Diastolic dysfunction (Acute) Excess ear wax (Acute) Weakness of both legs (Acute) Nocturnal cough (Acute) Medication monitoring encounter (Acute) Skin cancer, basal cell (Acute) face Elevated troponin (Chronic) Medical History Abscess of muscle of back Autoimmune myopathy secondary to statins-Per [facility]. Patient receives IVIG over 2 days every 4 weeks. Patient has never tolerated discontinuationCellulitis Elevated troponin level not due myocardial infarction Bacteremia Acute on chronic renal insufficiency Subclavian vein thrombosis Barretts esophagus Hyperlipidemia Other pancytopenia History of shingles Nonalcoholic steatohepatitis History of deep vein thrombosis Anemia Hypomagnesemia Diabetic ulcer of right foot Acute non-ST segment elevation myocardial infarction Sepsis Vasculitis Obesity Basal cell carcinoma, face Duodenitis Pancytopenia Shingles DVT (deep venous thrombosis) Pulmonary embolism Gout NSTEMI (non-ST elevated myocardial infarction) Chronic kidney disease Cardiomyopathy MYOPATHY DUE TO DRUGS Hypercholesterolemia Diabetes mellitus Inclusion body myositis Kidney stone Essential hypertension Surgical History History of colonoscopy POWER PORT MUSCLE BIOPSY LITHOTRIPSY Repair of umbilical hernia EGD - MAC (~2009) Colonoscopy - MAC (~2009) Social History/Home Situation: Patient resides in single-family home with his with ramp to enter. Patient utilizes 4 wheeled walker for ambulation and transfers. He reports independent ADLs provides transportation and meals. Patient independent med management with a pillbox. Equipment Owned/DME: Four-wheel walker, 2 scooters, grab bar near the toilet, lift assist chair, ramp to enter Subjective: Patient reports feeling stronger however still weak. States he is coughing less. Reports wound under Pedro wrap to right lower extremity wound is located on his kim per patient. Objective: [] General Observation: Patient presents reclined in chair with bilateral lower extremities externally rotated IV infusing right anterior chest. Right lower extremity Pedro wrapped. Mental Status: Alert and oriented x 4, cooperative, pleasant, agreeable to participate in evaluation. Pain: denies. Skin Right lower leg/ anterior kim open area (per pt) not visualized with dressing in place under pedro wrap. LLE skin intact taunt shiny. ROM: [] Right Upper Extremity: WFL Left Upper Extremity: WFL Right Lower Extremity:WFL except hip IR to neutral DF to neutral with knee extension Left Lower Extremity: WFL except hip IR to neutral, DF to neutral with knee extension Strength: no resistance d/t cardiac status Right Upper Extremity: >/= to 3/5 able to move all joints against gravity Left Upper Extremity: >/= to 3/5 able to move all joints against gravity Right Lower Extremity: grossly hip 3-/5, knee 3/5 ankle 3/5 Left Lower Extremity:grossly hip 3-/5 , knee 3/5, ankle 3/5 Sensation: impaired light touch B fingertips,diminished touch B feet to mid kim Bed Mobility/Transfers: [] Supine to sit mod A Sit to stand CGA with cues for breath control( to exhale with exertion) Stand to sit CGA with cues for breath control( to exhale with exertion) Bed to chair CGA with 4WW Gait: amb with 4WW CGA 60 feet with 2 stand rest for breath control and pacing level surfaces including turns. Balance: [] Static Sitting: Normal Dynamic Sitting: Good Static Standing: Good with 1UE support Dynamic Standing: Fair + Special Tests: [] Mobility Limitations Standardized Measure [] [facility] AM-PAC 6 clicks Basic Mobility Inpatient Short Form: [] Raw Score: 18 CMS Score: 46.58% Informed Consent/Education: Patient instructed in purpose of PT consult. treatment [id number] Therapeutic activity: transfers from wheelchair , toilet and chair with CGA and cues to exhale as push up to prevent holding breath. - ambulation with 4WW with CGA/SBA 12 feet including turn and then backward stepping with 4WW in small space. then ambulated 18 feet with 4WW CGA/SBAin cluding turn. pt provided with commode over toilet for increase ease of sit to stand to reduce exertion . pt reported much less strenuous from elevated height . Assessment: Patient is a 64-year-old male who presents with clinical signs and symptoms consistent with current/admitting diagnoses that have resulted to mobility limitations, gait instability, generalized weakness, and impairment of motor control as demonstrated by the following impairment level findings: 1. Decreased strength/ motor control BLE major muscle groups 2. Impaired standing balance 3. impaired functional activity tolerance 4. impaired breath control / pacing techniques Impairments are contributing to the following functional limitations: 1. Inability to safely ambulate without assistive device 2. Increase completion time for mobility ADL performance 3. Increased fall risk 4. AM-PAC score Patient is assessed as a moderate complexity based on the following: History: 64-year-old male with impairment level findings, functional limitations, and past medical history as indicated above Examination: Demonstrable impairment in strength, balance, and mobility level with underlying impairments and functional limitations as documented above Presentation: Evolving Decision Making: Moderate Goals: 1. Supervision bed mobility 2. Supervision transfers with 4 wheeled walker 3. Supervised ambulation with 4 wheeled walker 150 feet x 2 with stand rest as needed for pacing and breath control Plan of Care/Treatment Plan: 1-2x/day, 7 days/week x 1 week. Plan of care has been reviewed with the INSPECTOR [employer]CISION [employer]SEM[employer] providing the service under Physical Therapy direction. Initiate Physical Therapy intervention for strengthening, bed mobility, transfers, gait, stairs, balance training, use of assistive device. DISCHARGE RECOMMENDATIONS: Home with PT when medically appropriate TREATMENT CODE/TIME: 93846, [id number], [id number] Thank you for the opportunity to participate in the care of this patient. Shira Parry, PT [facility]
--- NOTE | 2024-12-16 16:11 | PGE_ITS ---
Date of Service Date of service: 12/16/24 Time of Service: 10:00 Assessment and Plan Assessment and plan (1) Pleural effusion due to CHF (congestive heart failure): Status: Acute Assessment and plan: Thoracentesis December 12 removed 1.8 L fluid, transudative per Dr Douglass Awaiting echocardiogram Appreciate pulmonology recommendations Planned to diurese to dry weight, but due to BUN over 150, held lasix today December 16 Starting bumetanide tonight (2) HFrEF (heart failure with reduced ejection fraction): Status: Chronic Assessment and plan: Chronic fluid retention despite GDMT Diuresing with furosemide initially 80 BID, tapered to 40 BID IV Furosemide stopped due to renal failure December 16 Starting Bumetanide December 16 evening (3) Pneumonia: Status: Acute Assessment and plan: Possible LLL infiltrate Continue ceftriaxone and doxycycline (4) Elevated troponin: Status: Chronic Assessment and plan: Chronic, due to CKD and cardiomyopathy (5) Sleep apnea: Status: Chronic Assessment and plan: Patient unable to tolerate CPAP (6) HTN (hypertension): Status: Chronic Assessment and plan: Continue home regimen (7) Cirrhosis of liver: Status: Chronic Assessment and plan: Reportedly secondary to autoimmune myopathy, possible HORTON No history of EtOH abuse (8) Autoimmune myopathy: Assessment and plan: Confirmed reaction to statin (9) Diabetes mellitus: Assessment and plan: SSI while hospitalized (10) Pancytopenia, acquired: Status: Chronic Assessment and plan: Possibly due to liver disease, consider hematology followup (11) CKD (chronic kidney disease) stage 3, GFR 30-59 ml/min: Status: Chronic Assessment and plan: Worsening renal status with severely elevated BUN Challenging for diuresis No change in creatinine since arrival, new baseline may be 2.6 BUN rising to over 160, likely due to diuresis Patient advised to see extension agent very soon Subjective Subjective Interval history since last seen: Mr. Acevedo is sitting up in a chair. He reports that he feels better today. His legs still feel swollen. Exam Narrative Exam Narrative: General: This is a pleasant man in mild distress due to cough HEENT: Normocephalic, atraumatic CV: RRR. Resp: Diminished bibasilar breath sounds, no increased work of breathing Abd: NTND +NBS MSK: Voluntary motion x4. Left lower leg bandaged, c/d/i. Right lower leg edematous, 2+ pitting, shiny. Neuro: Awake and alert, no focal deficits Objective Last Vital Signs Temp 36.0 C L 12/16/24 15:40 Pulse 61 12/16/24 15:40 Resp 14 12/16/24 07:30 BP 102/53 L 12/16/24 15:40 Pulse Ox 96 12/16/24 15:40 Laboratory Results - last 24 hr 12/16/24 08:45 WBC 3.00 L RBC 3.34 L Hgb 10.4 L Hct 33.6 L MCV 101 H MCH 31.1 MCHC 31.0 L RDW 17.6 H Plt Count 31 L MPV Sodium 134 L Potassium 4.6 Chloride 102 Carbon Dioxide 25.0 Anion Gap 7.0 BUN 161 H* Creatinine 2.6 H Est GFR (CKD-EPI 2020) 26.37 Glucose 156 H Calcium 8.7 Magnesium 2.9 H Total Bilirubin 0.7 AST 42 H ALT 30 Alkaline Phosphatase 149 H Troponin I 1473 H* Total Protein 7.9 Albumin 2.5 L Time Spent with Patient Time Spent with Patient: 25-34 minutes Time was spent: preparing to see the patient(eg.review tests), obtaining and/or reviewing separately otained hiistory, ordering medications,tests, procedures, referring, communicating with other health restorative care technician, indepentently interpreting results, counseling the patient and care coordination
--- NOTE | 2024-12-16 18:10 | PDOC.CMPRO ---
Date of service: 12/16/24 Time of Service: 18:10 Care Management Progress Note Progress Note Text Progress Note Text: Bucky was sitting up in the bedside chair when CM met with him earlier today. He was very pleasant. He was hoping to go home today, but maybe tomorrow. PT has recommended HH PT for Bucky. CM did not have a chance to discuss this with him, as PT eval was done after CM visit. Discharge Potential Discharge Needs: PCP F/U Appt and Other (nephrology f/u) Anticipated Barriers to Discharge: None Identified Patient/Family Education Needs: Review discharge instructions, discuss Ask Me Three Transportation: Private vehicle Plan: Anticipate Les will return home once medically cleared. He will be offered HH vs outpatient PT. His will drive him home via private vehicle. He will follow up with his PCP and discharge plan of care. CM will continue to follow. Social Determinants of Health Screening Social Determinants of health last assessed in clinic: 12/16/24 Will the Patient Participate in the Screening?: Yes Do you worry about having a steady place to live?: no Problems where you live: no known problems In the past 12 months, have you had to go without electric, gas, oil or water in your home?: no 1. Within the past 12 months, we worried whether our food would run out before we got money to buy more.: Don't know/refused 2. Within the past 12 months, the food we bought just didn't last and we didn't have money to get more.: Don't know/refused Has lack of transportation kept you from medical appointments or from doing things needed for daily living?: no Has anyone in your life made you feel unsafe or unsupported?: no How hard is it for you to pay for the very basics like food, housing, medical care, and heating? Would you say it is:: Not hard at all Do you want help finding or keeping work or a job?: I do not need or want help If for any reason you need help with day-to-day activities such as bathing, preparing meals, shopping, managing finances, etc., do you get the help you need?: I get all the help I need How often do you feel lonely or isolated from those around you?: Never Do you speak a language other than Citizen [place] at home?: No Does the patient want assistance with any of the above?: No Health Related Social Needs Health related social needs details: had home health services last year,August. but patient discontinued the service, not satisfied.!
[2024-12-16] MEDS: guaiFENesin/D-METHORPHAN HB 5 ML CUP 10 ML PO (21:42)
[2024-12-16] MEDS: cefTRIAXone 1 GM/50 ML BAG IVPB (22:38)
[2024-12-16] MEDS: Bumetanide 1 MG/4 ML VIAL IVP (22:38)
[2024-12-17 03:57] VITALS: BP 122/65; PULSE 58; RESP 16; TEMP 36.3; O2SAT 98
[2024-12-17 07:30] VITALS: BP 113/51; PULSE 61; RESP 16; TEMP 35.8; O2SAT 96
[2024-12-17] MEDS: Normal Saline Flush 10 ML SYR IVP (08:39)
[2024-12-17] MEDS: Multivitamin TAB 1 TAB PO (08:39)
[2024-12-17] MEDS: Losartan 50 MG TAB PO (08:39)
[2024-12-17] MEDS: Carvedilol 12.5 MG TAB PO (08:39)
[2024-12-17] MEDS: Allopurinol 100 MG TAB 200 MG PO (08:39)
[2024-12-17] MEDS: Aspirin E.C. 81 MG TABEC PO (08:39)
[2024-12-17] MEDS: Insulin Aspart 300 UNITS/3 ML PEN SC ×2 (08:41→12:09)
[2024-12-17] MEDS: DOXYCYCLINE 100 MG in Normal Saline 100 ML IVPB (10:19)
[2024-12-17 10:20] LABS: HCT 36.4 % (40.0-50.0); HGB 11.6 g/dL (13.5-17.5); MCH 31.7 pg (27.0-33.0); MCHC 31.9 % (32.0-36.0); MCV 100 fL (80-95); RBC 3.66 10^6/uL (4.36-5.78); RDW 17.3 % (11.8-14.1); RDW-SD 63.7 fL; WBC 3.54 10^3/uL (4.4-10.8)
[2024-12-17] MEDS: guaiFENesin/D-METHORPHAN HB 5 ML CUP 10 ML PO (10:23)
[2024-12-17 10:32] LABS: Platelet Count 42 10^3/uL (130-400)
--- NOTE | 2024-12-17 10:39 | PDOC.HHF2F_ITS ---
Home Health Referral Home Health Orders Clinical synopsis of why skilled professionals are needed: Patient is a 64-year-old male who presents with clinical signs and symptoms consistent with current/admitting diagnoses that have resulted to mobility limitations, gait instability, generalized weakness, and impairment of motor control as demonstrated by the following impairment level findings: 1. Decreased strength/ motor control BLE major muscle groups 2. Impaired standing balance 3. impaired functional activity tolerance 4. impaired breath control / pacing techniques Impairments are contributing to the following functional limitations: 1. Inability to safely ambulate without assistive device 2. Increase completion time for mobility ADL performance 3. Increased fall risk 4. AM-PAC score Patient is assessed as a moderate complexity based on the following: History: 64-year-old male with impairment level findings, functional limitations, and past medical history as indicated above Examination: Demonstrable impairment in strength, balance, and mobility level with underlying impairments and functional limitations as documented above Presentation: Evolving Decision Making: Moderate Goals: 1. Supervision bed mobility 2. Supervision transfers with 4 wheeled walker 3. Supervised ambulation with 4 wheeled walker 150 feet x 2 with stand rest as needed for pacing and breath control Plan of Care/Treatment Plan: 1-2x/day, 7 days/week x 1 week. Medical diagnosis necessitation home health referral: autoimmune myopathy Registered Nurse: Check all that apply Assess for exacerbation of medical condition, instruct patient/caregivers on signs and symptoms to report for early detection: Ordered Other: The patient follow-up with his primary care practitioner within 7 days of discharge. Outpatient BMP ordered. Findings of gallstones on CT might warrant GI consult outpatient as referred by the primary care practitioner. Elevated MRI of the pelvis that would include L4 was ordered to evaluate for previous finding with follow-up as per primary care practitioner for [facility] referral if needed. The patient will have a follow-up with cardiology and podiatry as well. Physical therapy evaluation did not recommend home health PT but the patient will need home health nursing for suture removal s/p right chest port excision on Saturday, January 12, as well as right foot dressing change with Betadine and sterile dry gauze on Wednesdays and Fridays. Physical Therapist: Check all that apply Increase strength & endurance for safe mobility at home: Ordered To design/establish home maintenance program: Ordered Fall reduction therapy program for patient with history of frequent falls: Ordered Home safety evaluation and teaching/gait training including stair management (if applicable): Ordered Encounter Date and Reason: I certify that a FTF encounter for this patient was performed on December 17, 2024 and that such encounter was related to the primary reason the patient requires home health services. The encounter was conducted in the following manner: * By me as the certifying physician, ANESTHESIA DIRECTOR, PA or * By an inpatient physician, ANESTHESIA DIRECTOR or PA during an inpatient stay who communicated findings to me, Certification And Authentication I certify that I composed the above information based on my clinical judgment relating to this patient's medical condition and, if applicable, clinical findings communicated to me by the NPP or inpatient physician who performed the FTF encounter. Name of Provider that will be monitoring home health services: Jazmine Baer
--- NOTE | 2024-12-17 11:02 | DSE_ITS ---
Date of service: 12/17/24 Time of Service: 08:00 DS: Diagnosis Discharge Diagnosis (1) Pleural effusion due to CHF (congestive heart failure): Status: Acute Asessment and Plan: Thoracentesis December 12 removed 1.8 L fluid, transudative per Dr Douglass Echocardiogram showing EF 30-35%, global hypokinesis, moderate LV dilation, moderate , elevated RV pressure Appreciate pulmonology recommendations Planned to diurese to dry weight, but due to BUN over 150, held lasix December 16 Started bumetanide December 16 evening Discharging on bumetanide 2 mg daily with close cardiology / pulmonology / nephrology followup (2) HFrEF (heart failure with reduced ejection fraction): Status: Chronic Asessment and Plan: Chronic fluid retention despite GDMT Diuresis plan as above (3) Pneumonia: Status: Acute Asessment and Plan: Completed ceftriaxone / doxycycline course On room air (4) Elevated troponin: Status: Chronic Asessment and Plan: Chronic, due to CKD and cardiomyopathy (5) Sleep apnea: Status: Chronic Asessment and Plan: Patient unable to tolerate CPAP (6) HTN (hypertension): Status: Chronic Asessment and Plan: Continue home regimen (7) Cirrhosis of liver: Status: Chronic Asessment and Plan: Reportedly secondary to autoimmune myopathy, possible HORTON No history of EtOH abuse (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 (9) Diabetes mellitus: Asessment and Plan: SSI while hospitalized (10) Pancytopenia, acquired: Status: Chronic Asessment and Plan: Possibly due to liver disease, consider hematology followup (11) CKD (chronic kidney disease) stage 3, GFR 30-59 ml/min: Status: Chronic Asessment and Plan: Worsening renal status with severely elevated BUN Challenging for diuresis No change in creatinine since arrival, new baseline may be 2.6 BUN rising to over 160, likely due to diuresis Patient advised to see waitstaff very soon Discharge Plan Disposition Patient Disposition: Home W/Home Health Services Condition: Poor Discharge Details Reason For Visit: Exacerbation CHF,Pleural Effusion,Pnuemonia Admit Date/Time: 12/14/24 20:59 Admit Provider: Chris Espana Attending Provider: Chris Espana Primary Care Provider: Jazmine Baer V Hospital Course Hospital Course: Bucky Acevedo is a 64 year old man presenting December 14 with shortness of breath and worsening bilateral leg swelling. He has known HF, CKD, liver cirrhosis, severe restrictive lung disease. He had December 12 thoracentesis which removed 1.8L. 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 He was admitted for diuresis which proved difficult; he has been on loop diuretics for years and the effectiveness of torsemide and furosemide is questionable for him. His renal function is at risk but he continues to produce urine. On day of discharge he is back to his baseline for mobility and leg edema. 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 Home Meds and New Rx's Prescriptions: New bumetanide 1 mg Tablet 2 mg PO DAILY Qty: 60 0RF Continued Aranesp (in polysorbate) 60 mcg/mL solution 60 mcg IV Q2W PRN Patient Comments: Through [facility] Outpatient Infusion Venofer 200 mg iron/10 mL solution 300 mg IV .12 weeks PRN Patient Comments: Through [facility] Outpatient Infusion Rx Instructions: administer over 30 mins [place] Saline Gel 1 applic topical QID PRN Rx Instructions: while awake levalbuterol tartrate [Xopenex HFA] 45 mcg/actuation HFA aerosol inhaler 2 inh inhalation Q6H Mariamumavinash Mcclendon U-100 Insulin 100 unit/mL insulin pen 20 unit subcut QACLUNCH docusate sodium [Colace] 100 mg capsule 100 mg PO TID PRN GAMAGUARD IVIG See Rx Instructions .ROUTE .COMPLEX Patient Comments: Infusions now at [facility] Rx Instructions: Patient seen at [facility] for IVIG infusions 2x a month (DME) blood-glucose meter Kit See Rx Instructions .Route Rx Instructions: As directed colchicine 0.6 mg tablet 0.6 mg PO DIRECTED sodium chloride 0.9 % (flush) Syringe 10 ml IV QWEEK carvedilol 12.5 mg tablet 12.5 mg PO BID Qty: 180 3RF Rx Instructions: must administer with a meal/food multivitamin [Daily Multi-Vitamin] 1 EACH tablet 1 tab PO DAILY aspirin 81 mg Tablet,Delayed Release (Dr/Ec) 81 mg PO DAILY Qty: 100 0RF magnesium oxide 400 mg (241.3 mg magnesium) Tablet 400 mg PO BID Qty: 60 1RF nitroglycerin 0.4 mg tablet, sublingual 0.4 mg sublingual Q5-15M PRNQty: 30 0RF Rx Instructions: do not exceed 3 doses per episode losartan 50 mg tablet 50 mg PO DAILY allopurinol 100 mg tablet 200 mg PO DAILY Qty: 0 0RF insulin glargine [Lantus Solostar U-100 Insulin] 100 unit/mL (3 mL) insulin pen 12 unit subcut DAILY Qty: 0 0RF Patient Comments: 01/16/23 per PCP med record states Per [facility] 07/24/22 RH Discontinued torsemide 20 mg tablet 80 mg PO DAILY Qty: 240 3RF ondansetron [Zofran ODT] 4 mg tablet,disintegrating 4 mg PO BID PRN Discharge Instructions Stand Alone Forms: Nursing Discharge Form Referrals: GASTROENTEROLOGY,[facility] [OTHER, Gastroenterology] Referral Note: Please give a call to set up a follow up appointment. NEPHROLOGY,[facility] [OTHER, Nephrology] - 02/26/25 3:00 pm Referral Note: Not by [facility]. At 3:00 you will need to go 3L and then go to 2M at 4:15. CARDIOLOGY,[facility] [OTHER, Cardiology] Referral Note: Please call and set up a follow up appointment. Linus Gaston MD [ [facility] STAFF PHYSICIAN, Pulmonology] - 12/28/24 3:20 pm Jazmine Baer MD [Primary Care Provider, Medicine] - 01/05/25 2:30 pm Activity:: Activity as Tolerated Equipment/Supplies:: No Equipment Needed Diet:: As Tolerated Discharge Orders Discharge Orders: Discharge Order (Routine); Ordered 12/17/24 Ordered By: Federico Laurent Discharge Data Discharge Date/Time-TO BE ENTERED AT DEPARTURE: 12/17/24 12:57 DS: Summary Time Spent with Patient providing and/or coordinating discharge services: Greater than 30 minutes Status at Discharge Functional status at discharge: uses cane/walker Overall status at discharge: patient is back to baseline Mental Status: mental status grossly normal Speech and Movement: speech and movement normal Mood: congruent mood Affect: normal affect Quality:SDOH Health Related Social Needs: Health related social needs details had home health se rvices last year,August. but patient discontinued the service, not satisfied.! Health related social needs details: had home health services last year,August. but patient discontinued the service, not satisfied.! Exam Narrative Exam Narrative: General: This is a pleasant man in mild distress due to cough HEENT: Normocephalic, atraumatic CV: RRR. Resp: Diminished bibasilar breath sounds, no increased work of breathing Abd: NTND +NBS MSK: Voluntary motion x4. Left lower leg bandaged, c/d/i. Right lower leg edematous, 2+ pitting, shiny. Neuro: Awake and alert, no focal deficits Psych Mental Status: mental status grossly normal Speech and Movement: speech and movement normal Mood: congruent mood Affect: normal affect DS: Data Vitals/I&O Vitals and I&O: Vital Signs Temperature 35.8 C L 12/17/24 07:30 Temperature Source Temporal Artery Scan 12/17/24 07:30 Pulse 61 12/17/24 07:30 Pulse Rhythm Irregular 12/14/24 22:05 Pulse 84 12/14/24 21:40 Respiratory Rate 16 12/17/24 07:30 Respiratory Effort Short of Breath, Accessory Muscle Use, Incrsd Work of PayParrot 12/14/24 22:05 Respiratory Depth Shallow 12/14/24 22:05 Respiratory Pattern Irregular 12/14/24 22:05 Blood Pressure 113/51 L 12/17/24 07:30 Blood Pressure Mean 71 12/17/24 07:30 Pulse Oximetry 96 12/17/24 07:30 Oxygen Delivery Method Room Air 12/17/24 07:30 Oxygen Flow Rate 0 12/17/24 07:30 Pain Level 0 12/17/24 07:30 Comment rn notifed 12/15/24 07:41 Intake & Output 12/16/24 12/16/24 12/17/24 11:59 23:59 11:59 Intake Total 100 / 300 200 / 300 100 / 100 Output Total 110 / 210 100 / 210 125 / 125 - / - Weight 123.4 kg 124.7 kg Intake: IV 100 / 300 200 / 300 100 / 100 Output: Urine 110 / 210 100 / 210 125 / 125 Other: Urine Color Yellow Yellow Yellow Urine Appearance Clear Clear Clear Urine Odor Strong Normal Normal Comment Pt attempted to use the urinal but peed all over the floor. Pt condom cath. slipped off and pt was inc. of urine. Pt's underwear, bedding, and trupti were changed Stool Size Moderate Moderate Stool Characteristics Formed Soft Data Completed and Pending Completed studies during hospitalization [Text1]: * * * * * EXAM: XR PORTABLE CHEST AP IMPRESSION: Left lung base infiltrate and left pleural effusion. Dictated By: Salvatore Schroeder M.D. 12/10/24 1229 * * * * * EXAM: XR PORTABLE CHEST AP IMPRESSION: Mild interval improvement of small left pleural effusion and left basilar infiltrate. Dictated By: Yoon Davis M.D. 12/14/24 1908 * * * * * EXAM: Comprehensive 2D, Doppler, and color-flow Echocardiogram Conclusion Moderately dilated left ventricle. Ejection fraction is 30 to 35% with global hypokinesis Right ventricle is not well-visualized Mildly dilated left atrium Aortic valve is calcified. There is moderate aortic stenosis. Peak gradient is 41, mean 27 mmHg. Calculated aortic valve area is 1.2 cm??. There is mild aortic regurgitation Mild mitral regurgitation Estimated right ventricular systolic pressure is 39 mmHg Date of Exam: 12/15/24 * * * * * Labs on day of discharge: Labs from last 24 hours 12/17/24 10:10 WBC 3.54 L RBC 3.66 L Hgb 11.6 L Hct 36.4 L MCV 100 H MCH 31.7 MCHC 31.9 L RDW 17.3 H Plt Count 42 L MPV Sodium Pending Potassium Pending Chloride Pending Carbon Dioxide Pending Anion Gap Pending BUN Pending Creatinine Pending Est GFR (CKD-EPI 2020) Pending Glucose Pending Uric Acid Pending Calcium Pending Total Bilirubin Pending AST Pending ALT Pending Alkaline Phosphatase Pending Total Protein Pending Albumin Pending PFSH All Active Problems (Updated 12/17/24 @ 11:01 by Federico Laurent MD) Pneumonia (Acute) CKD (chronic kidney disease) stage 4, GFR 15-29 ml/min (Chronic) Pancytopenia, acquired (Chronic) Shortness of breath (Acute) Pleural effusion (Acute) Restrictive airway disease (Acute) Sleep apnea (Chronic) Ulcer of right foot limited to breakdown of skin (Acute) Hammertoe of right foot (Acute) Osteomyelitis (Acute) Mucocele of tonsil (Acute) Venous stasis ulcer of right ankle limited to breakdown of skin (Acute) Venous insufficiency (Acute) Acute kidney injury superimposed on chronic kidney disease (Acute) Vascular device, implant, or graft infection or inflammation (Acute) MRSA bacteremia (Acute) Surgical site infection (Acute) History of incision and drainage (Acute) Pleural effusion due to CHF (congestive heart failure) (Acute) Anemia due to stage 3 chronic kidney disease (Chronic) CKD (chronic kidney disease) stage 3, GFR 30-59 ml/min (Chronic) Adverse effect of statin (Acute) 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 Baseline is around 70,000 Lower extremity cellulitis (Acute) Renal insufficiency (Chronic) Impacted cerumen of both ears (Acute) HTN (hypertension) (Chronic) Cirrhosis of liver (Chronic) Myopathy (Acute) Hearing deficit (Acute) Epistaxis (Acute) Chronic anemia (Chronic) Per Dr. Melendez due to iron deficiency. Venofer 300mg every 3months. Cannot follow ferritin due to myopathy causing nonspecific inflammation. 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 Patient receives IVIG over 2 days every 4 weeks. Patient has never tolerated discontinuation Cellulitis Elevated troponin level not due myocardial infarction Bacteremia Acute on chronic renal insufficiency Subclavian vein thrombosis Barretts esophagus Hyperlipidemia Other pancytopenia History of shingles Nonalcoholic steatohepatitis History of deep vein thrombosis Anemia Hypomagnesemia Diabetic ulcer of right foot Acute non-ST segment elevation myocardial infarction Sepsis Vasculitis Obesity Basal cell carcinoma, face Duodenitis Pancytopenia Shingles DVT (deep venous thrombosis) Pulmonary embolism Gout NSTEMI (non-ST elevated myocardial infarction) Chronic kidney disease Cardiomyopathy 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 Sister Diabetes PATERNAL UNCLE Personal history of malignant neoplasm STOMACH Social History Smoking/Tobacco Use Status: Never Smoking risk assessment performed?: Yes Alcohol Intake: never Drug use: Never Substance use type: does not use Housing: house Do you feel safe at home: Yes Do you feel safe in your relationship?: Yes Time Spent with Patient Time Spent with Patient: <45 minutes Time was spent: preparing to see the patient(eg.review tests), obtaining and/or reviewing separately otained hiistory, ordering medications,tests, procedures, referring, communicating with other health manager managed care, indepentently interpreting results, counseling the patient and care coordination
[2024-12-17 11:06] LABS: ALT 34 U/L (16-63); AST 46 U/L (15-37); Albumin 2.6 g/dL (3.4-5.0); Alkaline Phosphatase 165 U/L (46-116); Anion Gap 8.8 mmol/L (3-11); Bilirubin, Total 0.7 mg/dL (0.2-1.0); CO2 25.2 mmol/L (21.0-32.0); Calcium 8.7 mg/dL (8.5-10.1); Chloride 99 mmol/L (98-107); Estimated GFR 23.13 (mL/min/1.73m2); Glucose 192 mg/dL (74-106); Potassium 4.5 mmol/L (3.5-5.1); Sodium 133 mmol/L (136-145); Total Protein 8.4 g/dL (6.4-8.2); Uric Acid 4.5 mg/dL (3.5-7.2)
--- NOTE | 2024-12-17 11:21 | CMDISCH_ITS ---
Date of service: 12/17/24 Time of Service: 11:21 LACE Index Scoring Tool Questions: Length of Stay (in days): 3 Was the patient admitted via the E.D.?: Yes Comorbidities: Congestive Heart Failure and Liver or Renal Disease E.D. Visits: 2 Answers: Total Score: 13 Risk of Readmission: High Risk Care Management Discharge Plan Reason for Hospitalization: Exacerbation CHF, Pleural Effusion, Pneumonia Discharge Plan: Les will return home today. He will be offered outpatient PT. His will drive him home via private vehicle. He will follow up with his PCP and discharge plan of care. Patient/Family Education Needs: Review of discharge instructions, activity, limitations, and plan of care. Discuss Ask Me Three. Services Needed at Discharge: Home Health Care Services SDOH Health Related Social Needs: Health related social needs details had home health se rvices last year,August. but patient discontinued the service, not satisfied.! Health related social needs details: had home health services last year,August. but patient discontinued the service, not satisfied.!
[2024-12-17 11:36] LABS: BUN 161 mg/dL (7-18)
--- NOTE | 2024-12-17 14:28 | PTTR_ITS ---
PT Notes Visit Reasons: Exacerbation CHF,Pleural Effusion,Pnuemonia Inpatient Physical Therapy Treatment Note [facility] Date: 12/17/2024 PRECAUTIONS: Autonomic myopathy, standard SUBJECTIVE: Patient reports he feels much better today no reports of chest discomfort. Patient reports he may be going home today OBJECTIVE: Patient presented initially supine in bed requesting to use bathroom. Second session patient noted seated in chair ? PAIN denied VITALS: ?Monitored via telemetry Therapeutic Activities (02084h[]): Direct one-on-one instruction in dynamic activities to improve functional performance. ?? [] Patient education regarding pacing and breathing techniques to maximize activity tolerance? BED MOBILITY/TRANSFERS? Rolling L/R: Independent Supine-sit: Independent ? Sit-stand: Independent? Stand-sit: Independent? Bed-Chair: Supervision with four-wheel walker? Chair-bed: Supervision with four-wheel walker Provided skilled cues and instruction on performance and technique duong mullen. Ambulation Facilitated safe and correct performance of level surface ambulation covering a distance of 25?30 feet x 4 using use 4 wheeled walker with supervision Did not report of any increased pain. Denied headache, chest pain, and lightheadedness throughout activity. ASSESSMENT: Patient demonstrates significant improvement in functional ability with less SOB noted during functional tasks and simulated home setting with frequent short distance ambulation . Patient demonstrates ability to manage 4 wheeled walker in tight spaces. Patient able to perform toileting hygiene after BM without assistance. Patient appropriate for discharge to home at this time with home health PT for ongoing strengthening given diagnosis of autonomic myopathy PLAN: Discharge to home TREATMENT CODE/TIME: 33157/[id number], 1002?[id number] DISCHARGE RECOMMENDATION: Home with home health PT
== END 2024-12-17 12:57 | disposition home health service (06) | DRG 291 ==
LOC: ER 20:07 → MS 21:46
PROVIDERS: Admitting Provider Family Medicine; Emergency Provider Emergency Medicine; PCP Family Medicine; Responsible Provider Family Medicine; Visit Provider Family Medicine
DX: I50.23 Acute on chronic systolic (congestive) heart failure (principal); J18.9 Pneumonia, unspecified organism; G47.33 Obstructive sleep apnea (adult) (pediatric); I13.0 Hypertensive heart and chronic kidney disease with heart failure and stage 1 through stage 4 chronic kidney disease, or unspecified chronic kidney disease; K74.69 Other cirrhosis of liver; G72.49 Other inflammatory and immune myopathies, not elsewhere classified; E11.22 Type 2 diabetes mellitus with diabetic chronic kidney disease; N18.4 Chronic kidney disease, stage 4 (severe); Z79.4 Long term (current) use of insulin; D61.818 Other pancytopenia; L97.311 Non-pressure chronic ulcer of right ankle limited to breakdown of skin; M35.89 Other specified systemic involvement of connective tissue; I42.7 Cardiomyopathy due to drug and external agent; T46.6X5A Adverse effect of antihyperlipidemic and antiarteriosclerotic drugs, initial encounter; R74.8 Abnormal levels of other serum enzymes; I87.2 Venous insufficiency (chronic) (peripheral); I35.0 Nonrheumatic aortic (valve) stenosis; I25.2 Old myocardial infarction; D69.59 Other secondary thrombocytopenia; D50.9 Iron deficiency anemia, unspecified
CPT/HCPCS: 00123; 36415; 36591; 80053; 85027; 87637; 93005; 93306; 94640; 96374; 97162; 97530; 99285; 71045; 81003; 82565; 83735; 83880; 84439; 84443; 84484; 84550; 85025; 85610; 85730; 93010; 94664; 99223; 99232; 99239; J0696; J0881; J1815; J1938; J1939

== ENCOUNTER 2024-12-28 01:10 | Outpatient (RCR) | payer MEDICARE, SELFPAY ==
[2024-12-09] MEDS: Normal Saline Flush 10 ML SYR IVP (12:46)
[2024-12-09 13:05] LABS: Abs Immature Grans 0.01 10^3/uL (0.0-0.06); HCT 34.7 % (40.0-50.0); HGB 10.9 g/dL (13.5-17.5); Immature Grans % 0.4 %; MCH 31.3 pg (27.0-33.0); MCHC 31.4 % (32.0-36.0); MCV 100 fL (80-95); MPV 12.8 fL (8.0-11.0); RBC 3.48 10^6/uL (4.36-5.78); RDW 17.4 % (11.8-14.1); RDW-SD 63.9 fL; WBC 2.50 10^3/uL (4.4-10.8)
[2024-12-09 13:22] LABS: Platelet Count 45 10^3/uL (130-400)
[2024-12-09 13:33] LABS: ALT 41 U/L (16-63); AST 49 U/L (15-37); Albumin 2.6 g/dL (3.4-5.0); Alkaline Phosphatase 174 U/L (46-116); Anion Gap 9.2 mmol/L (3-11); Bilirubin, Total 0.8 mg/dL (0.2-1.0); CO2 26.8 mmol/L (21.0-32.0); Calcium 8.8 mg/dL (8.5-10.1); Chloride 106 mmol/L (98-107); Estimated GFR 27.64 (mL/min/1.73m2); Glucose 175 mg/dL (74-106); LDH 168 U/L (85-227); NT-proBNP 9792 pg/mL (<300); Potassium 4.4 mmol/L (3.5-5.1); Sodium 142 mmol/L (136-145); Total Protein 8.8 g/dL (6.4-8.2)
[2024-12-09 13:44] LABS: BUN 157 mg/dL (7-18)
[2024-12-14] MEDS: Normal Saline Flush 10 ML SYR IVP (07:07)
[2024-12-14 07:26] LABS: Abs Immature Grans 0.00 10^3/uL (0.0-0.06); HCT 33.7 % (40.0-50.0); HGB 10.7 g/dL (13.5-17.5); Immature Grans % 0.0 %; MCH 31.4 pg (27.0-33.0); MCHC 31.8 % (32.0-36.0); MCV 99 fL (80-95); MPV 12.4 fL (8.0-11.0); RBC 3.41 10^6/uL (4.36-5.78); RDW 17.4 % (11.8-14.1); RDW-SD 63.3 fL; WBC 2.89 10^3/uL (4.4-10.8)
[2024-12-14 07:31] LABS: Estimated GFR 26.37 (mL/min/1.73m2)
[2024-12-14 07:48] LABS: Platelet Count 36 10^3/uL (130-400); RBC Morphology Normal
== END 2025-01-07 23:59 | disposition home or self-care (01) ==
LOC: INF 01:10
PROVIDERS: Internal Medicine; Physician Assistant Surgical; PCP Family Medicine; Visit Provider Nurse Practitioner Adult Health
DX: N18.32 Chronic kidney disease, stage 3b (principal); D50.9 Iron deficiency anemia, unspecified; I50.20 Unspecified systolic (congestive) heart failure
CPT/HCPCS: 36591; 80053; 82565; 83615; 83880; 85025; J0881

== ENCOUNTER 2025-02-15 03:49 | Outpatient (RCR) | payer MEDICARE, SELFPAY ==
[2025-02-15 07:45] VITALS: BP 114/43; PULSE 73; RESP 22; TEMP 35; O2SAT 100
[2025-02-15 07:58] LABS: Abs Immature Grans 0.02 10^3/uL (0.0-0.06); HCT 35.2 % (40.0-50.0); HGB 11.4 g/dL (13.5-17.5); Immature Grans % 0.4 %; MCH 31.4 pg (27.0-33.0); MCHC 32.4 % (32.0-36.0); MCV 97 fL (80-95); MPV 11.4 fL (8.0-11.0); RBC 3.63 10^6/uL (4.36-5.78); RDW 15.6 % (11.8-14.1); RDW-SD 55.9 fL; WBC 5.24 10^3/uL (4.4-10.8)
[2025-02-15] MEDS: Normal Saline Flush 5 ML SYR IVP (08:07)
[2025-02-15 08:13] LABS: Platelet Count 53 10^3/uL (130-400); RBC Morphology Normal
[2025-02-15 08:22] LABS: ALT 21 U/L (16-63); AST 35 U/L (15-37); Albumin 2.7 g/dL (3.4-5.0); Alkaline Phosphatase 210 U/L (46-116); Anion Gap 7.2 mmol/L (3-11); Bilirubin, Total 2.0 mg/dL (0.2-1.0); C-Reactive Protein 3.47 mg/dL (<or=0.5); CO2 35.8 mmol/L (21.0-32.0); Calcium 9.5 mg/dL (8.5-10.1); Chloride 90 mmol/L (98-107); Creatine Kinase 9 U/L (39-308); Glucose 307 mg/dL (74-106); Potassium 3.5 mmol/L (3.5-5.1); Sodium 133 mmol/L (136-145); Total Protein 7.6 g/dL (6.4-8.2)
[2025-02-15 08:49] LABS: BUN 179 mg/dL (7-18)
== END 2025-03-09 23:59 | disposition home or self-care (01) ==
LOC: INF 03:49
PROVIDERS: PCP Family Medicine; Visit Provider Nurse Practitioner Acute Care
DX: D50.9 Iron deficiency anemia, unspecified (principal)
CPT/HCPCS: 36591; 80053; 82550; 96372; 85025; 86140; J0881

== ENCOUNTER 2025-02-15 12:33 | Inpatient (IN) | payer MEDICARE, SELFPAY ==
[2025-02-15] VITALS (25 sets, daily range): BP systolic 93–112; BP diastolic 38–62; PULSE 74–183; RESP 7–21; TEMP 36.3–36.7; O2SAT 97–100
--- NOTE | 2025-02-15 12:36 | W.ED.GENAD ---
Discharge Plan Disposition Patient Disposition: Admit to [facility] Discharge Details Clinical Impression: Sacral decubitus ulcer, Ulcer of right lower extremity, Generalized weakness, Prolonged QT interval, Elevated BUN, Acute hypokalemia Primary Care Provider: Jazmine Baer V ED Provider: Jayson Ferguson Home Meds and New Rx's Prescriptions: No Action Aranesp (in polysorbate) 60 mcg/mL solution 60 mcg IV Q2W PRN Patient Comments: Through [facility] Outpatient Infusion Venofer 200 mg iron/10 mL solution 300 mg IV .12 weeks PRN Patient Comments: Through [facility] Outpatient Infusion Rx Instructions: administer over 30 mins [place] Saline Gel 1 applic topical QID PRN Rx Instructions: while awake levalbuterol tartrate [Xopenex HFA] 45 mcg/actuation HFA aerosol inhaler 2 inh inhalation Q6H Lyumjev KwikPen U-100 Insulin 100 unit/mL insulin pen 20 unit subcut QACLUNCH docusate sodium [Colace] 100 mg capsule 100 mg PO TID PRN GAMAGUARD IVIG See Rx Instructions .ROUTE .COMPLEX Patient Comments: Infusions now at [facility] Rx Instructions: [place] [facility] [place] 2x a month (DME) blood-glucose meter Kit See Rx Instructions .Route Rx Instructions: As directed colchicine 0.6 mg tablet 0.6 mg PO DIRECTED sodium chloride 0.9 % (flush) Syringe 10 ml IV QWEEK carvedilol 12.5 mg tablet 12.5 mg PO BID Qty: 180 3RF Rx Instructions: must administer with a meal/food multivitamin [Daily Multi-Vitamin] 1 EACH tablet 1 tab PO DAILY aspirin 81 mg Tablet,Delayed Release (Dr/Ec) 81 mg PO DAILY Qty: 100 0RF magnesium oxide 400 mg (241.3 mg magnesium) Tablet 400 mg PO BID Qty: 60 1RF nitroglycerin 0.4 mg tablet, sublingual 0.4 mg sublingual Q5-15M PRNQty: 30 0RF Rx Instructions: do not exceed 3 doses per episode losartan 50 mg tablet 50 mg PO DAILY allopurinol 100 mg tablet 200 mg PO DAILY Qty: 0 0RF insulin glargine [Lantus Solostar U-100 Insulin] 100 unit/mL (3 mL) insulin pen 12 unit subcut DAILY Qty: 0 0RF Patient Comments: 01/16/23 per PCP med record states Per [facility] 07/24/22 RH bumetanide 1 mg Tablet 2 mg PO DAILY Qty: 60 0RF ezetimibe 10 mg tablet 10 mg PO DAILY spironolactone 25 mg tablet 25 mg PO DAILY HPI General Date/Time Provider Initiated Documentation: 02/15/25 12:36. HPI Narrative: [facility] This is a chronically ill-appearing normothermic and not tachycardic 64-year-old male with generalized weakness concerning possibility for CVA for which patient underwent CT angiogram of his head and neck. No pain out of proportion to suggest necrotizing soft tissue infection. Patient not had any unintentional weight gain and has no signs of acute heart failure on exam though he certainly at risk for this given his poor systolic function and history of aortic stenosis. He has not been vomiting to suggest increased risk for intra-abdominal infection so I do not feel he requires a CT scan of his abdomen. No chest pain to suggest aortic dissection. ECG showing normal sinus rhythm left axis deviation interventricular conduction delay and pattern of left bundle branch block. Not meeting Sgarbossa criteria abnormal modified Contreras criteria for ischemia. Compared to prior dated 2 months ago QRS is widened. First-degree heart block is new. T wave inversion in aVL is new. 2:24 PM Urinalysis nitrite negative. Trace leuk esterase. CBC with improved macrocytic anemia. Persistent thrombocytopenia similar to prior. No leukocytosis. TSH elevated. CT angiogram showing plaque at the carotid bifurcations and proximal ICAs estimated to be 50%. Patient also has vertebral arterial plaque. No intracranial hemorrhage. No critical stenoses. Initial troponin elevated but improved compared to prior. Will obtain delta. Comprehensive metabolic panel with elevated BUN similar to prior at 180. CKD with mild worsening renal function. Mildly elevated alkaline phosphatase. This is similar to prior. Improved hyperglycemia. Improved hyperbilirubinemia. Potassium with mild hypokalemia. Prolonged QTc on ECG at 522 mm seconds. 2:36 PM I spoke to Dr. Salazar from neuro who recommended MRI brain. He advised against ASA load. 2:40 PM Repeat troponin persistently elevated. Mild hypermagnesemia. Given electrolyte abnormalities generalized weakness felt patient would benefit from hospitalization to ensure that his hypokalemia improves. Will order physical therapy consult. I do not feel patient requires tertiary care transfer as I do not feel he is in acute heart failure so I do not feel he would require left heart catheterization nor consideration for expedited TAVR. Reassuring TSH. 3:05 PM I was in touch with Dr. Costa who graciously agreed to accept patient for hospitalization. 4:34 PM I met with the patient and his . Patient had a reassuring MRI with no signs of any acute ischemic events. HPI This is a patient with a history of autoimmune myopathy presenting with generalized weakness and difficulty speaking. The patient was brought in by his . The patient reports experiencing generalized weakness that began a few days ago. His has observed that he appears unwell, often staring blankly and taking time to respond, which is not typical for him. He is currently unable to walk, even with the aid of a walker or cane, and cannot lift his feet. He has no history of stroke. The patient reports no unintentional weight gain or shortness of breath. He has sores on his spine, for which he has been given a topical treatment to apply after washing. He reports no leg swelling and confirms that he is taking all his prescribed medications. He has an upcoming appointment with one of his doctors in [facility] on 02/18/2025. The patient also mentions having difficulty speaking since the weekend. His primary care physician, Dr. Baer, was contacted due to concerns about his slow response time and potential stroke symptoms. His blood work results were abnormal, leading to a consultation with his regular doctor in [facility]. He was advised to discontinue his current medication for a week and was administered a monthly injection. The patient has a known diagnosis of autoimmune myopathy, for which he receives infusions. Exam General: Elderly-appearing in no acute distress speaking in complete sentences. Head: Normocephalic, atraumatic. Eye:[Pupils equal, round reactive to light.] Extraocular eye movements intact. No conjunctival injection. No scleral icterus. Ear, nose, mouth, throat: Grossly normal inspection. Normal voice, handling secretions normally. Neck: Trachea midline. Cardiovascular: Well-perfused distal extremities. Regular rate and rhythm. Systolic ejection murmur Respiratory: Nonlabored respiration. Decreased breath sounds bilateral bases. Chest wall: Right-sided chest wall in place. Gastrointestinal: Nondistended abdomen. Soft. Nontender. Back: Sacral decubitus ulcer Musculoskeletal: Mild 1+ lower extremity nonpitting edema. Moving all 4 extremities spontaneously. Right anterior kim large violaceous 4 x 3 cm area surrounding ulcer. No warmth. No fluctuance. No foul-smelling drainage. Anterior left foot small shallow healing ulcer dorsal aspect less than 1 cm in diameter. Skin: Normal for age and race, grossly normal temperature and turgor. No acute rash. Neurologic: Alert and appropriate, no apparent acute deficits. Bilateral lower extremity weakness which patient reports is chronic. 5 out of 5 upper extremity strength. Cranial nerves II through XII intact grossly. No pronator drift. GCS 15. Related Data Home Medications ?Medication ?Instructions ?Recorded ?Confirmed Gamaguard Ivig See Rx Instructions .Route .COMPLEX 09/18/12 02/15/25 multivitamin (Daily Multi-Vitamin 1 tab PO DAILY 11/23/13 02/15/25 tablet) aspirin 81 mg tablet,delayed 81 mg PO DAILY #100 tabs 04/12/21 02/15/25 release magnesium oxide 400 mg (241.3 mg 400 mg PO BID #60 tabs 04/12/21 02/15/25 magnesium) tablet nitroglycerin 0.4 mg sublingual 0.4 mg sublingual Q5-15M PRN #30 04/12/21 02/15/25 tablet tabs darbepoetin matt in polysorbat 60 60 mcg IV Q2W PRN 04/20/21 02/15/25 mcg/mL in polysorbate injection (Aranesp) sodium chloride-aloe vera nasal 1 applic topical QID PRN 07/16/22 02/15/25 gel ([place] Saline nasal gel) blood-glucose meter 09/12/22 02/15/25 colchicine 0.6 mg tablet 0.6 mg PO DIRECTED 09/12/22 02/15/25 sodium chloride 0.9 % (flush) 10 ml IV QWEEK 09/12/22 02/15/25 iron sucrose 200 mg iron/10 mL 300 mg IV .12 weeks PRN 01/15/23 02/15/25 intravenous solution (Venofer) insulin lispro-aabc 100 unit/mL 20 unit subcut QACLUNCH 11/07/23 02/15/25 subcutaneous pen (Lyumjev KwikPen U-100 Insulin) allopurinol 100 mg tablet 200 mg (2 x 100 mg) PO DAILY #0 01/09/24 02/15/25 tabs insulin glargine 100 unit/mL (3 12 unit (0.12 mL) subcut DAILY #0 01/09/24 02/15/25 mL) subcutaneous pen (Lantus mL Solostar U-100 Insulin) docusate sodium 100 mg capsule 100 mg PO TID PRN 01/29/24 02/15/25 (Colace) losartan 50 mg tablet 50 mg PO DAILY 02/06/24 02/15/25 carvedilol 12.5 mg tablet 12.5 mg PO BID #180 tabs 07/24/24 02/15/25 levalbuterol tartrate 45 2 inh inhalation Q6H 10/22/24 02/15/25 mcg/actuation aerosol inhaler (Xopenex HFA) bumetanide 1 mg tablet 2 mg (2 x 1 mg) PO DAILY #60 tabs 12/17/24 02/15/25 ezetimibe 10 mg tablet 10 mg PO DAILY 02/15/25 02/15/25 spironolactone 25 mg tablet 25 mg PO DAILY 02/15/25 02/15/25 Previous Rx's ?Medication ?Instructions ?Recorded aspirin 81 mg tablet,delayed 81 mg PO DAILY #100 tabs 04/12/21 release magnesium oxide 400 mg (241.3 mg 400 mg PO BID #60 tabs 04/12/21 magnesium) tablet nitroglycerin 0.4 mg sublingual 0.4 mg sublingual Q5-15M PRN #30 04/12/21 tablet tabs allopurinol 100 mg tablet 200 mg (2 x 100 mg) PO DAILY #0 01/09/24 tabs insulin glargine 100 unit/mL (3 12 unit (0.12 mL) subcut DAILY #0 01/09/24 mL) subcutaneous pen (Lantus mL Solostar U-100 Insulin) carvedilol 12.5 mg tablet 12.5 mg PO BID #180 tabs 07/24/24 bumetanide 1 mg tablet 2 mg (2 x 1 mg) PO DAILY #60 tabs 12/17/24 Allergies Allergy/AdvReac Type Severity Reaction Status Date / Time bacitracin (From Neosporin Allergy Mild Skin Rash Verified 02/15/25 12:49 ([id number])) neomycin (From Neosporin Allergy Mild Skin Rash Verified 02/15/25 12:49 ([id number])) polymyxin B (From Neosporin Allergy Mild Skin Rash Verified 02/15/25 12:49 ([id number])) methotrexate Allergy Skin Rash Verified 02/15/25 12:49 morphine Allergy Itching Verified 02/15/25 12:49 Hrizswr-QUJ-OnC Reductase Allergy NECROTIZING Verified 02/15/25 12:49 Inhibitor (Tnuvdze-Nev-Ilf MYOPATHY Reductase Inhibitor) General AURA: 3 Medical Decision Making Quality:SDOH Health Related Social Needs: Health related social needs details had home health services last year,August. but patient discontinued the service, not satisfied.! PFSH All Active Problems (Updated 02/15/25 @ 16:26 by Celso Costa MD) Hypokalemia (Acute) Acute hypokalemia (Acute) Elevated BUN (Acute) Prolonged QT interval (Acute) Generalized weakness (Acute) Ulcer of right lower extremity (Acute) Sacral decubitus ulcer (Acute) CKD (chronic kidney disease) stage 4, GFR 15-29 ml/min (Chronic) Pancytopenia, acquired (Chronic) Pleural effusion (Acute) Restrictive airway disease (Acute) Sleep apnea (Chronic) Ulcer of right foot limited to breakdown of skin (Acute) Hammertoe of right foot (Acute) Osteomyelitis (Acute) Mucocele of tonsil (Acute) Venous stasis ulcer of right ankle limited to breakdown of skin (Acute) Venous insufficiency (Acute) Acute kidney injury superimposed on chronic kidney disease (Acute) Vascular device, implant, or graft infection or inflammation (Acute) MRSA bacteremia (Acute) Surgical site infection (Acute) History of incision and drainage (Acute) Pleural effusion due to CHF (congestive heart failure) (Acute) Anemia due to stage 3 chronic kidney disease (Chronic) Adverse effect of statin (Acute) 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 Baseline is around 70,000 Lower extremity cellulitis (Acute) Renal insufficiency (Chronic) Impacted cerumen of both ears (Acute) HTN (hypertension) (Chronic) Cirrhosis of liver (Chronic) Myopathy (Acute) Hearing deficit (Acute) Epistaxis (Acute) Chronic anemia (Chronic) Per Dr. Melendez due to iron deficiency. Venofer 300mg every 3months. Cannot follow ferritin due to myopathy causing nonspecific inflammation. 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 Patient receives IVIG over 2 days every 4 weeks. Patient has never tolerated discontinuation Cellulitis Elevated troponin level not due myocardial infarction Bacteremia Acute on chronic renal insufficiency Subclavian vein thrombosis Barretts esophagus Hyperlipidemia Other pancytopenia History of shingles Nonalcoholic steatohepatitis History of deep vein thrombosis Anemia Hypomagnesemia Diabetic ulcer of right foot Acute non-ST segment elevation myocardial infarction Sepsis Vasculitis Obesity Basal cell carcinoma, face Duodenitis Pancytopenia Shingles DVT (deep venous thrombosis) Pulmonary embolism Gout NSTEMI (non-ST elevated myocardial infarction) Chronic kidney disease Cardiomyopathy 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 Sister Diabetes PATERNAL UNCLE Personal history of malignant neoplasm STOMACH Social History Smoking/Tobacco Use Status: Never Smoking risk assessment performed?: Yes Alcohol Intake: never Drug use: Never Substance use type: does not use Housing: house Do you feel safe at home: Yes Do you feel safe in your relationship?: Yes POCUS Exam (ED) Limited Cardiac Exam DATE OF EXAM: 02/15/25 TIME OF EXAM: 13:56 PROVIDER THAT PERFORMED THE STUDY: Jayson Ferguson IS THIS A REPEAT EXAM DURING THIS ENCOUNTER: no REASON FOR EXAM: Other indication: Weakness VISUALIZED STRUCTURES: Four Chambers, Left ventricle and LVOT VIEW OBTAINED: Apical 4-Chamber, Parasternal long-axis and Subxiphoid PERTINENT FINDINGS/IMPRESSION: No pericardial effusion and No RV dilation DIFFERENTIAL DIAGNOSES: Aortic outflow track less than 4 cm, poor squeeze, RV less than LV, no significant pericardial effusion. Scattered bilateral B-lines. Exam complete
--- NOTE | 2025-02-15 12:45 | RT.EKG_ITS ---
APPROVED REPORT Exam: Resting ECG Reason for Exam: Weakness Patient Location: E HR:77 bpm ECG Measurements Heart Rate 77 AXIS ND 204 P 62 QRSd 157 QRS -29 QT 456 T 122 QTc 522 Conclusion Sinus rhythm...normal P axis, V-rate 60- 99 Ventricular premature complex...V complex w/ short R-R interval IVCD, consider LBBB...QRSd>120, notch/slur R I aVL V5-6 No Occlusion OR
--- NOTE | 2025-02-15 12:45 | DI.CT_ITS ---
Exam(s) CT BRAIN NECK CTA EXAM: CT BRAIN NECK CTA CLINICAL HISTORY: Weakness. TECHNIQUE: Imaging Protocol: Axial CT angiography was performed with multi- slice acquisition and multi-planar and/or 3D reconstructions. CONTRAST MATERIAL: Intravenous: Omnipaque 350 Contrast volume:75 COMPARISON: CT CT HEAD - STROKE PROTOCOL from 04/10/2021 FINDINGS: CTA Neck W: Right pleural effusion noted. Port-A-Cath noted Aortic arch anatomy: The aortic arch anatomy is conventional and there is no significant stenosis at the origin of the brachiocephalic and left common carotid arteries off the arch. There is some partially calcified plaque in the left subclavian artery but no critical stenosis at this level. Anterior circulation: Both common carotid arteries ascend with normal luminal diameters. The level the carotid bulbs and proximal ICAs there is some bilateral calcified and noncalcified plaque, with approximately 40-50 percent luminal stenosis on both sides at these levels. The internal carotid arteries higher up in the upper neck are not narrowed. Posterior circulation: Both vertebral arteries originate in conventional fashion off of the subclavian arteries. There is some partially calcified plaque at the origin of vertebral arteries off the subclavian arteries. Both vertebral arteries exhibit normal luminal diameters within the foramen transversarium. No evidence of vertebral artery thrombosis nor dissection. Both vertebral arteries contribute to the formation of the basilar artery at the skull base. CTA Brain W: Anterior circulation: Both internal carotid arteries are patent in the skull base-carotid canals. There is mural calcification in both intra cavernous internal carotid arteries but without a tight stenosis at these levels. The supraclinoid aspects of the ICAs are patent. The supraclinoid aspects of the ICAs are patent. Both A1 segments are patent as are the anterior cerebral arteries and there is no evidence of aneurysm at the level of the anterior communicating artery. Both middle cerebral arteries are patent with no evidence of significant stenosis nor intraluminal thrombus. There also no aneurysms of these vessels. Posterior circulation: Basilar artery ascends with no significant stenosis. Distally gives off patent superior cerebellar arteries Above this level the basilar artery terminates as patent bilateral posterior cerebral arteries. There is no evidence of aneurysm at the tip of the basilar artery nor elsewhere in the [id number]. CT BRAIN: There is no evidence of intracranial hemorrhage, mass effect, or shift of midline structures. There are no extra-axial fluid collections. Ventricles are not enlarged or shifted. There are no ring enhancing lesions in the brain and no abnormal meningeal enhancement. IMPRESSION: 1. There is both calcified and noncalcified plaque at the carotid bifurcations and proximal ICAs in both sides the neck. Estimated approximately 50 percent stenosis bilaterally these levels. 2. Some calcified plaque at the origin of both vertebral arteries. There is also some partially calcified plaque in the left subclavian artery proximal to the vertebral artery takeoff point. The amount of stenosis in left subclavian artery is not enough to be causing subclavian steal syndrome. 3. Patent intracranial arteries. 4. No acute intracranial findings. 5. If clinically indicated follow-up MRI diffusion imaging can be performed. Report called by myself to ER physician 02/15/2025 at 1:51 p.m. RADIATION DOSE DELIVERED: 2,287.95mGy.cm Total DLP DATA REPOSITORY: All CT scans at this facility are submitted to the National Radiology Data Registry (NRDR) Dose Index Registry (DIR) with the [employer] (A[employer]). RADIATION OPTIMIZATION: All CT scans at this facility use at least one of these dose optimization techniques: automated exposure control; mA and/or kV adjustment per patient size (includes targeted exams where dose is matched to clinical indication); or iterative reconstruction.
--- NOTE | 2025-02-15 13:28 | DI.RAD_ITS ---
Exam(s) XR CHEST 1V IN DI DEPT EXAM: XR CHEST 1V IN DI DEPT CLINICAL HISTORY: Weakness. TECHNIQUE: 2D digital imaging was performed. COMPARISON: CR XR PORTABLE CHEST AP from 12/14/2024 FINDINGS: Single AP portable view. Heart size is upper normal. The mediastinum is not widened. Distal tip of the right sided Port-A-Cath is in the right atrium. Lungs are clear. No infiltrates nor obvious pleural effusions. No pulmonary nodules evident. IMPRESSION: No acute pulmonary findings on this single AP portable view of the chest. Port-A-Cath as above. DATA REPOSITORY: RADIATION DOSE DELIVERED:
[2025-02-15 13:58] LABS: Abs Immature Grans 0.03 10^3/uL (0.0-0.06); HCT 37.1 % (40.0-50.0); HGB 12.1 g/dL (13.5-17.5); Immature Grans % 0.6 %; MCH 31.3 pg (27.0-33.0); MCHC 32.6 % (32.0-36.0); MCV 96 fL (80-95); MPV 11.7 fL (8.0-11.0); RBC 3.86 10^6/uL (4.36-5.78); RDW 15.6 % (11.8-14.1); RDW-SD 54.6 fL; WBC 4.88 10^3/uL (4.4-10.8)
[2025-02-15 14:10] LABS: Glucose Negative (Negative)
[2025-02-15 14:17] LABS: C & S Indicated? No; RBC Negative HPF (0-2)
[2025-02-15 14:17] LABS: Platelet Count 49 10^3/uL (130-400)
[2025-02-15 14:20] LABS: ALT 23 U/L (16-63); AST 39 U/L (15-37); Albumin 2.9 g/dL (3.4-5.0); Alkaline Phosphatase 215 U/L (46-116); Anion Gap 8.2 mmol/L (3-11); Bilirubin, Total 1.7 mg/dL (0.2-1.0); CO2 37.8 mmol/L (21.0-32.0); Calcium 9.7 mg/dL (8.5-10.1); Chloride 88 mmol/L (98-107); Estimated GFR 21.35 (mL/min/1.73m2); Glucose 130 mg/dL (74-106); Magnesium 2.5 mg/dL (1.8-2.4); Sodium 134 mmol/L (136-145); TSH (W/Ref FT4) 5.91 uIU/mL (0.36-3.74); Total Protein 7.9 g/dL (6.4-8.2)
[2025-02-15 14:23] LABS: BUN 180 mg/dL (7-18)
[2025-02-15 14:24] LABS: Potassium 2.9 mmol/L (3.5-5.1); Troponin I 90 ng/L (<or=76)
[2025-02-15 14:39] LABS: Troponin I 87 ng/L (<or=76)
[2025-02-15] MEDS: Potassium Chloride 20 MEQ TABCR 40 MEQ PO (14:40)
--- NOTE | 2025-02-15 15:23 | W.PM.HP.N ---
Date of service: 02/15/25 Time of Service: 15:23 Assessment and Plan Assessment and plan (1) Hypokalemia: Status: Acute Assessment and plan: - Potassium found to be 2.9, likely in the setting of overdiuresis with recent hospitalization for CHF exacerbation and worsening CKD - Status post 40 mEq p.o. potassium in the emergency department - Follow-up a.m. BMP Of note, when discussing with the patient and his who was at bedside they mention that the patient was at [facility] for about a month and he was just recently discharged. Will obtain medical records and given complexity of patient depending on how he does overnight will reach out to [facility] [place]. (2) Generalized weakness: Status: Acute Assessment and plan: - Thought to have potentially been due to CVA however CT angio and MRI negative - Likely due to a combination of autoimmune myopathy as well as hypokalemia and overdiuresis - Potassium replaced as noted above - Status post 500 mL bolus in emergency department - Appreciate PT consultation (3) CKD (chronic kidney disease) stage 3, GFR 30-59 ml/min: Assessment and plan: -Continued worsening kidney function since last hospitalization with an increase of creatinine now up to 3.3 and BUN 180 (baseline creatinine about 2.8, BUN about 160) -Will rehydrate patient as he may have been over diuresed from recent hospitalization with heart failure - Will monitor BUN, creatinine and electrolytes very closely as patient may need inpatient dialysis -Anticipate worsening of kidney function as patient received IV contrast in the ED for CTA -Patient reportedly making urine, will monitor during hospitalization - However, it is highly recommended that patient see nephrology within a few days after being discharged from the hospital as it appears he will likely require being set up for outpatient dialysis (4) HFrEF (heart failure with reduced ejection fraction): Status: Chronic Assessment and plan: - Currently without acute exacerbation - Holding all nephrotoxic meds including allopurinol, colchicine, losartan, spironolactone (5) Elevated troponin: Status: Resolved Assessment and plan: -Chronic, due to CKD and cardiomyopathy (6) Sleep apnea: Status: Chronic Assessment and plan: - History of CPAP intolerance (7) HTN (hypertension): Status: Chronic Assessment and plan: - Holding home antihypertensives as noted above (8) Autoimmune myopathy: Assessment and plan: - History of, receives IVIG therapy (9) Diabetes mellitus: Assessment and plan: - Continue home long-acting - Carb consistent diet, sliding scale insulin History of Present Illness History of Present Illness Chief Complaint: generalized weakness Narrative: 64-year-old male with a past medical history of CKD stage IV not on dialysis, heart failure with reduced ejection fraction, chronically elevated troponin, sleep apnea, hypertension, 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 Patient's states that he has been experiencing generalized weakness that started about few days ago with his noting that he was unwell, often blankly staring taking time to respond which is not normal for him, as well as a progressive worsening and now inability to ambulate. He was recently hospitalized at [facility] in the beginning of December with heart failure exacerbation for which he was diuresed. He also receives IVIG therapy for autoimmune myopathy. In the emergency department the patient was noted as having generalized weakness with no focal neurologic deficit however, patient did have a CTA did not show any acute findings. CBC was unremarkable but CMP was notable for potassium of 2.9, chloride of 88, carbon dioxide of 37.8, a BUN of 180 (most recently 161 on December 17, 2024), creatinine of 3.3, (most recently 2.9 on December 17, 2024), and troponin of 90 (baseline in the low 100s). Concern was that patient was continuing on diuresis leading to hypokalemia and worsening generalized weakness. While still in the emergency department he had an MRI of his head which was also negative. Also in the ED he was given IV fluids and 40 mEq of p.o. potassium and appeared to have some mild improvement of his creatinine from 3.3 down to 3.1, and BUN remaining the same. Which the emergency room provider paged hospitalist for admission for patient with generalized weakness and hypokalemia. Review of Systems All systems reviewed & are unremarkable except as noted in HPI and below PFSH All Active Problems (Updated 02/15/25 @ 16:26 by Celso Costa MD) Hypokalemia (Acute) Acute hypokalemia (Acute) Elevated BUN (Acute) Prolonged QT interval (Acute) Generalized weakness (Acute) Ulcer of right lower extremity (Acute) Sacral decubitus ulcer (Acute) CKD (chronic kidney disease) stage 4, GFR 15-29 ml/min (Chronic) Pancytopenia, acquired (Chronic) Pleural effusion (Acute) Restrictive airway disease (Acute) Sleep apnea (Chronic) Ulcer of right foot limited to breakdown of skin (Acute) Hammertoe of right foot (Acute) Osteomyelitis (Acute) Mucocele of tonsil (Acute) Venous stasis ulcer of right ankle limited to breakdown of skin (Acute) Venous insufficiency (Acute) Acute kidney injury superimposed on chronic kidney disease (Acute) Vascular device, implant, or graft infection or inflammation (Acute) MRSA bacteremia (Acute) Surgical site infection (Acute) History of incision and drainage (Acute) Pleural effusion due to CHF (congestive heart failure) (Acute) Anemia due to stage 3 chronic kidney disease (Chronic) Adverse effect of statin (Acute) 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 Baseline is around 70,000 Lower extremity cellulitis (Acute) Renal insufficiency (Chronic) Impacted cerumen of both ears (Acute) HTN (hypertension) (Chronic) Cirrhosis of liver (Chronic) Myopathy (Acute) Hearing deficit (Acute) Epistaxis (Acute) Chronic anemia (Chronic) Per Dr. Melendez due to iron deficiency. Venofer 300mg every 3months. Cannot follow ferritin due to myopathy causing nonspecific inflammation. 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 Patient receives IVIG over 2 days every 4 weeks. Patient has never tolerated discontinuation Cellulitis Elevated troponin level not due myocardial infarction Bacteremia Acute on chronic renal insufficiency Subclavian vein thrombosis Barretts esophagus Hyperlipidemia Other pancytopenia History of shingles Nonalcoholic steatohepatitis History of deep vein thrombosis Anemia Hypomagnesemia Diabetic ulcer of right foot Acute non-ST segment elevation myocardial infarction Sepsis Vasculitis Obesity Basal cell carcinoma, face Duodenitis Pancytopenia Shingles DVT (deep venous thrombosis) Pulmonary embolism Gout NSTEMI (non-ST elevated myocardial infarction) Chronic kidney disease Cardiomyopathy 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 Sister Diabetes PATERNAL UNCLE Personal history of malignant neoplasm STOMACH Social History Smoking/Tobacco Use Status: Never Smoking risk assessment performed?: Yes Alcohol Intake: never Drug use: Never Substance use type: does not use Housing: house Do you feel safe at home: Yes Do you feel safe in your relationship?: Yes Meds Allergies and Home Medications Allergies Allergy/AdvReac Type Severity Reaction Status Date / Time bacitracin (From Neosporin Allergy Mild Skin Rash Verified 02/15/25 12:49 ([id number])) neomycin (From Neosporin Allergy Mild Skin Rash Verified 02/15/25 12:49 ([id number])) polymyxin B (From Neosporin Allergy Mild Skin Rash Verified 02/15/25 12:49 ([id number])) methotrexate Allergy Skin Rash Verified 02/15/25 12:49 morphine Allergy Itching Verified 02/15/25 12:49 [id number] Reductase Allergy NECROTIZING Verified 02/15/25 12:49 Inhibitor ([id number]-Bjc MYOPATHY Reductase Inhibitor) Home Medications ?Medication ?Instructions ?Recorded ?Confirmed ?Type Gamaguard Ivig See Rx Instructions .Route .COMPLEX 09/18/12 02/15/25 History multivitamin (Daily Multi-Vitamin 1 tab PO DAILY 11/23/13 02/15/25 History tablet) aspirin 81 mg tablet,delayed 81 mg PO DAILY #100 tabs 04/12/21 02/15/25 Rx release magnesium oxide 400 mg (241.3 mg 400 mg PO BID #60 tabs 04/12/21 02/15/25 Rx magnesium) tablet nitroglycerin 0.4 mg sublingual 0.4 mg sublingual Q5-15M PRN #30 04/12/21 02/15/25 Rx tablet tabs darbepoetin matt in polysorbat 60 60 mcg IV Q2W PRN 04/20/21 02/15/25 History mcg/mL in polysorbate injection (Aranesp) sodium chloride-aloe vera nasal 1 applic topical QID PRN 07/16/22 02/15/25 History gel ([place] Saline nasal gel) blood-glucose meter 09/12/22 02/15/25 History colchicine 0.6 mg tablet 0.6 mg PO DIRECTED 09/12/22 02/15/25 History sodium chloride 0.9 % (flush) 10 ml IV QWEEK 09/12/22 02/15/25 History iron sucrose 200 mg iron/10 mL 300 mg IV .12 weeks PRN 01/15/23 02/15/25 History intravenous solution (Venofer) insulin lispro-aabc 100 unit/mL 20 unit subcut QACLUNCH 11/07/23 02/15/25 History subcutaneous pen (Lyumjev KwikPen U-100 Insulin) allopurinol 100 mg tablet 200 mg (2 x 100 mg) PO DAILY #0 01/09/24 02/15/25 Rx tabs insulin glargine 100 unit/mL (3 12 unit (0.12 mL) subcut DAILY #0 01/09/24 02/15/25 Rx mL) subcutaneous pen (Lantus mL Solostar U-100 Insulin) docusate sodium 100 mg capsule 100 mg PO TID PRN 01/29/24 02/15/25 History (Colace) losartan 50 mg tablet 50 mg PO DAILY 02/06/24 02/15/25 History carvedilol 12.5 mg tablet 12.5 mg PO BID #180 tabs 07/24/24 02/15/25 Rx levalbuterol tartrate 45 2 inh inhalation Q6H 10/22/24 02/15/25 History mcg/actuation aerosol inhaler (Xopenex HFA) bumetanide 1 mg tablet 2 mg (2 x 1 mg) PO DAILY #60 tabs 12/17/24 02/15/25 Rx ezetimibe 10 mg tablet 10 mg PO DAILY 02/15/25 02/15/25 History spironolactone 25 mg tablet 25 mg PO DAILY 02/15/25 02/15/25 History Exam Narrative Exam Narrative: Fatigued, chronically ill-appearing gentleman laying in bed in no acute distress, ANO x 4, heart regulate rhythm, lungs good auscultation bilaterally, abdomen soft, nontender, nondistended, generalized global weakness of bilateral upper and lower extremities without any focal neurologic deficits Results Labs 02/15/25 13:45 02/15/25 13:45 Labs: Laboratory Results - last 24 hr 02/15/25 02/15/25 02/15/25 12:55 13:45 13:57 WBC Cancelled 4.88 RBC Cancelled 3.86 L Hgb Cancelled 12.1 L Hct Cancelled 37.1 L MCV Cancelled 96 H MCH Cancelled 31.3 MCHC Cancelled 32.6 RDW Cancelled 15.6 H Plt Count Cancelled 49 L MPV Cancelled 11.7 H Immature Gran % Cancelled 0.6 Neutrophils % Cancelled 76.2 Band Neutrophils % Cancelled Lymphocytes % Cancelled 2.7 Atypical Lymphs % Cancelled Monocytes % Cancelled 12.5 Eosinophils % Cancelled 7.0 Basophils % Cancelled 1.0 Metamyelocytes % Cancelled Myelocytes % Cancelled Promyelocytes % Cancelled Other Cells % Cancelled Nucleated RBC % Cancelled 0.0 Absolute Neutrophils Cancelled 3.72 Absolute Lymphocytes Cancelled 0.13 L Absolute Monocytes Cancelled 0.61 Absolute Eosinophils Cancelled 0.34 Absolute Basophils Cancelled 0.05 RBC Morphology Cancelled Polychromasia Cancelled Hypochromasia Cancelled Poikilocytosis Cancelled Basophilic Stippling Cancelled Anisocytosis Cancelled Microcytosis Cancelled Macrocytosis Cancelled Spherocytes Cancelled Tear Drop Cells Cancelled Ovalocytes Cancelled Stomatocytes Cancelled Crump-Grenelefe Bodies Cancelled Aimee Cells/Echinocytes Cancelled Acanthocytes (Spur) Cancelled Schistocytes Cancelled Sodium Cancelled 134 L Potassium Cancelled 2.9 L* Chloride Cancelled 88 L Carbon Dioxide Cancelled 37.8 H Anion Gap Cancelled 8.2 BUN Cancelled 180 H* Creatinine Cancelled 3.1 H Est GFR (CKD-EPI 2020) Cancelled 21.35 Glucose Cancelled 130 H Calcium Cancelled 9.7 Magnesium Cancelled 2.5 H Total Bilirubin Cancelled 1.7 H AST Cancelled 39 H ALT Cancelled 23 Alkaline Phosphatase Cancelled 215 H Troponin I Cancelled 90 H* Total Protein Cancelled 7.9 Albumin Cancelled 2.9 L TSH Cancelled 5.91 H Free T4 1.15 Urine Color Yellow Urine Clarity Clear Urine pH 7.0 Ur Specific [place] 1.015 Urine Protein Negative Urine Ketones Negative Urine Blood Negative Urine Nitrite Negative Urine Bilirubin Negative Urine Urobilinogen 0.2 Ur Leukocyte Esterase Trace H Urine RBC Negative Urine WBC 3-5 Ur Epithelial Cells Negative Urine Crystals Negative Urine Bacteria Rare Urine Casts Negative Urine Mucus Negative Urine Other Negative Ur Culture Indicated? No Urine Glucose Negative ABO/Rh A Negative Antibody Screen NEGATIVE 02/15/25 14:00 WBC RBC Hgb Hct MCV MCH MCHC RDW Plt Count MPV Immature Gran % Neutrophils % Band Neutrophils % Lymphocytes % Atypical Lymphs % Monocytes % Eosinophils % Basophils % Metamyelocytes % Myelocytes % Promyelocytes % Other Cells % Nucleated RBC % Absolute Neutrophils Absolute Lymphocytes Absolute Monocytes Absolute Eosinophils Absolute Basophils RBC Morphology Polychromasia Hypochromasia Poikilocytosis Basophilic Stippling Anisocytosis Microcytosis Macrocytosis Spherocytes Tear Drop Cells Ovalocytes Stomatocytes Crump-Grenelefe Bodies [place] Cells/Echinocytes Acanthocytes (Spur) Schistocytes Sodium Potassium Chloride Carbon Dioxide Anion Gap BUN Creatinine Est GFR (CKD-EPI 2020) Glucose Calcium Magnesium Total Bilirubin AST ALT Alkaline Phosphatase Troponin I 87 H* Total Protein Albumin TSH Free T4 Urine Color Urine Clarity Urine pH Ur Specific [place] Urine Protein Urine Ketones Urine Blood Urine Nitrite Urine Bilirubin Urine Urobilinogen Ur Leukocyte Esterase Urine RBC Urine WBC Ur Epithelial Cells Urine Crystals Urine Bacteria Urine Casts Urine Mucus Urine Other Ur Culture Indicated? Urine Glucose ABO/Rh Antibody Screen Last Vital Signs Temp 98.1 F 02/15/25 12:42 Pulse 74 02/15/25 14:51 Resp 9 L 02/15/25 14:51 BP 104/42 L 02/15/25 14:50 Pulse Ox 100 02/15/25 14:51 Time Spent Time spent with Patient: >75 minutes Time was spent: preparing to see the patient(eg.review tests), obtaining and/or reviewing separately otained hiistory, ordering medications,tests, procedures, referring, communicating with other health care transition mgr, indepentently interpreting results, counseling the patient and care coordination
--- NOTE | 2025-02-15 15:35 | DI.MRI_ITS ---
Exam(s) MR BRAIN WO EXAM: MR BRAIN WO CLINICAL HISTORY: weakness TECHNIQUE: Multiplanar multisequence MRI of the brain was performed. COMPARISON: MR MR ANGIO BRAIN WO from 04/10/2021 MR MR BRAIN WO from 04/10/[address] BRAIN NECK CTA from 02/15/2025 FINDINGS: VENTRICLES AND EXTRA AXIAL SPACES: Normal in size and morphology for the patient's age. MIDLINE SHIFT: None. CEREBRAL PARENCHYMA: No focus of restricted diffusion to suggest acute infarct. No space-occupying lesion identified. Mild atrophy consistent with the patient's age. Mild scattered foci of high signal in the white matter consistent with sequela of chronic microvascular disease, not significantly changed from prior. BRAINSTEM/CEREBELLUM: Normal. VISUALIZED PARANASAL SINUSES: Clear. MASTOIDS:Clear. Vasculature: Normal flow void. PITUITARY GLAND: Unremarkable. ORBITS: Unremarkable. IMPRESSION: No evidence of acute infarct or hemorrhage. DATA REPOSITORY:
[2025-02-15 15:44] LABS: Lab Add On Test DONE
[2025-02-15 16:38] LABS: NT-proBNP > 35000 pg/mL (<300)
[2025-02-15] MEDS: Insulin Aspart 300 UNITS/3 ML PEN SC ×2 (18:21→21:14)
[2025-02-15] MEDS: Normal Saline 250 ML 500 ML IV (19:16)
--- NOTE | 2025-02-15 19:31 | W.PC.ACHO ---
Registration Status: ADM IN Primary Language: Preferred Language: Mongolian ED Information & Data Chief Complaint CVA/TIA 02/15/25 12:47 Chief Complaint CVA/TIA 02/15/25 12:42 Triage Note patient here with 02/15/25 12:42 generalized weakness. thinks he has had a stroke. patient states he is having difficulty speaking since this weakness. A&O. lethargic. Medical / Surgical History (Last Reviewed 12/14/24 @ 23:58 by Chris Espana) CKD (chronic kidney disease) stage 3, GFR 30-59 ml/min Abscess of muscle of back Autoimmune myopathy Cellulitis Elevated troponin level not due myocardial infarction Bacteremia Acute on chronic renal insufficiency Subclavian vein thrombosis Barretts esophagus Hyperlipidemia Other pancytopenia History of shingles Nonalcoholic steatohepatitis History of deep vein thrombosis Anemia Hypomagnesemia Diabetic ulcer of right foot Acute non-ST segment elevation myocardial infarction Sepsis Vasculitis Obesity Basal cell carcinoma, face Duodenitis Pancytopenia Shingles DVT (deep venous thrombosis) Pulmonary embolism Gout NSTEMI (non-ST elevated myocardial infarction) Chronic kidney disease Cardiomyopathy MYOPATHY DUE TO DRUGS Hypercholesterolemia Diabetes mellitus Inclusion body myositis Kidney stone Essential hypertension (Last Reviewed 12/14/24 @ 23:58 by Chris Espana) History of colonoscopy POWER PORT MUSCLE BIOPSY LITHOTRIPSY Repair of umbilical hernia EGD - MAC (~2009) Colonoscopy - MAC (~2009) Most Recent Vital Signs Temperature 36.3 C L 02/15/25 17:01 Pulse 81 02/15/25 17:01 Pulse Rhythm Regular 02/15/25 17:21 Pulse 74 02/15/25 16:00 Respiratory Rate 18 02/15/25 17:01 Respiratory Effort Normal 02/15/25 17:21 Respiratory Depth Normal 02/15/25 17:21 Respiratory Pattern Normal 02/15/25 12:51 Blood Pressure 105/62 02/15/25 17:01 Blood Pressure Mean 63 02/15/25 14:50 Blood Pressure Position Supine 02/15/25 12:42 Pulse Oximetry 100 02/15/25 17:01 Oxygen Delivery Method Room Air 02/15/25 18:39 Oxygen Flow Rate 0 02/15/25 18:39 Pain Level 5 02/15/25 17:01 Allergies bacitracin (From Neosporin ([id number])) Allergy (Mild, Verified 02/15/25 12:49) Skin Rash neomycin (From Neosporin ([id number])) Allergy (Mild, Verified 02/15/25 12:49) Skin Rash polymyxin B (From Neosporin ([id number])) Allergy (Mild, Verified 02/15/25 12:49) Skin Rash methotrexate Allergy (Verified 02/15/25 12:49) Skin Rash morphine Allergy (Verified 02/15/25 12:49) Itching Hmfonbs-RNI-QjV Reductase Inhibitor (Tmiqhuo-Dqo-Vuv Reductase Inhibitor) Allergy (Verified 02/15/25 12:49) NECROTIZING MYOPATHY Precautions Isolation Fall precaution 02/15/25 12:47 Active Medications Generic Name Dose Route Start Last Admin Trade Name Freq PRN Reason Stop Dose Admin Insulin Aspart 0 units 02/15/25 17:00 02/15/25 18:21 Insulin Aspart 300 Units/3 Ml Pen SC 2 unit 0800,1200,1700,2200 MAGALI Administration Protocol IV IV Catheter Type [Left Wrist] Saline Lock IV Catheter Gauge [Left Wrist] 18 Diet Orders Category Date Time Status Diabetes Consistent CHO/Heart Healthy [DIET] Nutrition 02/15/25 Dinner Active Diagnostics 02/15/25 02/15/25 02/15/25 Range/Units 14:00 13:57 13:45 WBC 4.88 RBC 3.86 L Hgb 12.1 L Hct 37.1 L MCV 96 H MCH 31.3 MCHC 32.6 RDW 15.6 H Plt Count 49 L MPV 11.7 H Immature Gran % 0.6 Neutrophils % 76.2 Band Neutrophils % Lymphocytes % 2.7 Atypical Lymphs % Monocytes % 12.5 Eosinophils % 7.0 Basophils % 1.0 Metamyelocytes % Myelocytes % Promyelocytes % Other Cells % Nucleated RBC % 0.0 Absolute Neutrophils 3.72 Absolute Lymphocytes 0.13 L Absolute Monocytes 0.61 Absolute Eosinophils 0.34 Absolute Basophils 0.05 RBC Morphology Polychromasia Hypochromasia Poikilocytosis Basophilic Stippling Anisocytosis Microcytosis Macrocytosis Spherocytes Tear Drop Cells Ovalocytes Stomatocytes [place]ump[place] Bodies Aimee Cells/Echinocytes Acanthocytes (Spur) Schistocytes Sodium 134 L Potassium 2.9 L* Chloride 88 L Carbon Dioxide 37.8 H Anion Gap 8.2 BUN 180 H* Creatinine 3.1 H Est GFR (CKD-EPI 2020) 21.35 Glucose 130 H Calcium 9.7 Magnesium 2.5 H Total Bilirubin 1.7 H AST 39 H ALT 23 Alkaline Phosphatase 215 H Troponin I 87 H* 90 H* NT-Pro-B Natriuret Pep > 12160 H (<300) pg/mL Total Protein 7.9 Albumin 2.9 L TSH 5.91 H Free T4 1.15 (0.76-1.46) ng/dL Urine Color Yellow (Yellow) Urine Clarity Clear (Clear) Urine pH 7.0 (5-8) Ur Specific [place] 1.015 (1.005-1.025) Urine Protein Negative (Neg-Trace) mg/dL Urine Ketones Negative (Negative) mg/dL Urine Blood Negative (Negative) Urine Nitrite Negative (Negative) Urine Bilirubin Negative (Negative) Urine Urobilinogen 0.2 (Up to 0.2) mg/dL Ur Leukocyte Esterase Trace H (Negative) Urine RBC Negative (0-2) HPF Urine WBC 3-5 (0-5) HPF Ur Epithelial Cells Negative (Negative) HPF Urine Crystals Negative (Negative) HPF Urine Bacteria Rare (Negative) HPF Urine Casts Negative (Negative) LPF Urine Mucus Negative (Negative) Urine Other Negative (Negative) Ur Culture Indicated? No Urine Glucose Negative (Negative) mg/dL Add-On Test Request DONE ABO/Rh A Negative Antibody Screen NEGATIVE 02/15/25 Range/Units 12:55 WBC Cancelled RBC Cancelled Hgb Cancelled Hct Cancelled MCV Cancelled MCH Cancelled MCHC Cancelled RDW Cancelled Plt Count Cancelled MPV Cancelled Immature Gran % Cancelled Neutrophils % Cancelled Band Neutrophils % Cancelled Lymphocytes % Cancelled Atypical Lymphs % Cancelled Monocytes % Cancelled Eosinophils % Cancelled Basophils % Cancelled Metamyelocytes % Cancelled Myelocytes % Cancelled Promyelocytes % Cancelled Other Cells % Cancelled Nucleated RBC % Cancelled Absolute Neutrophils Cancelled Absolute Lymphocytes Cancelled Absolute Monocytes Cancelled Absolute Eosinophils Cancelled Absolute Basophils Cancelled RBC Morphology Cancelled Polychromasia Cancelled Hypochromasia Cancelled Poikilocytosis Cancelled Basophilic Stippling Cancelled Anisocytosis Cancelled Microcytosis Cancelled Macrocytosis Cancelled Spherocytes Cancelled Tear Drop Cells Cancelled Ovalocytes Cancelled Stomatocytes Cancelled [place] Bodies Cancelled [place] Cells/Echinocytes Cancelled Acanthocytes (Spur) Cancelled Schistocytes Cancelled Sodium Cancelled Potassium Cancelled Chloride Cancelled Carbon Dioxide Cancelled Anion Gap Cancelled BUN Cancelled Creatinine Cancelled Est GFR (CKD-EPI 2020) Cancelled Glucose Cancelled Calcium Cancelled Magnesium Cancelled Total Bilirubin Cancelled AST Cancelled ALT Cancelled Alkaline Phosphatase Cancelled Troponin I Cancelled NT-Pro-B Natriuret Pep (<300) pg/mL Total Protein Cancelled Albumin Cancelled TSH Cancelled Free T4 (0.76-1.46) ng/dL Urine Color (Yellow) Urine Clarity (Clear) Urine pH (5-8) Ur Specific [place] (1.005-1.025) Urine Protein (Neg-Trace) mg/dL Urine Ketones (Negative) mg/dL Urine Blood (Negative) Urine Nitrite (Negative) Urine Bilirubin (Negative) Urine Urobilinogen (Up to 0.2) mg/dL Ur Leukocyte Esterase (Negative) Urine RBC (0-2) HPF Urine WBC (0-5) HPF Ur Epithelial Cells (Negative) HPF Urine Crystals (Negative) HPF Urine Bacteria (Negative) HPF Urine Casts (Negative) LPF Urine Mucus (Negative) Urine Other (Negative) Ur Culture Indicated? Urine Glucose (Negative) mg/dL Add-On Test Request ABO/Rh Antibody Screen [id number] Documentation Fingerstick Glucose Start: 02/15/25 12:48 Freq: Status: Complete Protocol: Activity Type Activity Date Activity User E-sign Co-sign Detail Recorded Client Recorded Date Recorded By Document 02/15/25 12:46 BKG DAEMON(5) [id number] 02/15/25 12:48 BKG DAEMON(6) Fingerstick Glucose Start: 02/15/25 16:56 Freq: AC & HS Status: Active Protocol: Activity Type Activity Date Activity User E-sign Co-sign Detail Recorded Client Recorded Date Recorded By Document 02/15/25 18:16 BKG DAEMON(7) NVT-BG05 02/15/25 18:17 BKG DAEMON(8) Intake and Output - 24 Hour Total 02/15/25 12:33 thru 02/15/25 17:21 Intake Total 10 Output Total 200 Balance -190 Weight 87.99 kg Intake: IV 10 Output: Urine 200 Other: Urine Appearance Clear Falls Risk Assessment History of Falls No History 02/15/25 17:21 Contributing Factors Unstable,Impairments, 02/15/25 12:47 Medications Ambulatory Aids Uses ambulatory device + 02/15/25 12:47 Tubes/Lines With any additional score 02/15/25 12:47 Gait Evaluation W/any additional score 02/15/25 12:47 Fall Total Score 0 02/15/25 17:21 Level of Risk Standard/Low Risk 02/15/25 17:21 Problems (Last Reviewed 12/14/24 @ 23:58 by Chris Espana) Hypokalemia (Acute) Acute hypokalemia (Acute) Elevated BUN (Acute) Prolonged QT interval (Acute) Generalized weakness (Acute) Ulcer of right lower extremity (Acute) Sacral decubitus ulcer (Acute) Sleep apnea (Chronic) HFrEF (heart failure with reduced ejection fraction) (Chronic) HTN (hypertension) (Chronic) v v v v v v v v v Sending and/or Receiving Nurses: Please use comment section below to note any information pertinent to the patient hand-off not included above. Information / Comments: Report received from: Report recieved from ED at 1650 from [place] and upon arrival the patient was stable and with bp 105/62, pulse 81, resp. rate 18, temp. 36.3, and oxygen is a 94%.
[2025-02-15] MEDS: Carvedilol 12.5 MG TAB PO (21:14)
[2025-02-16] VITALS (7 sets, daily range): BP systolic 70–114; BP diastolic 37–70; PULSE 56–98; RESP 15–19; TEMP 35.9–36.7; O2SAT 97–100
[2025-02-16 06:35] LABS: HCT 32.9 % (40.0-50.0); HGB 10.7 g/dL (13.5-17.5); MCH 31.0 pg (27.0-33.0); MCHC 32.5 % (32.0-36.0); MCV 95 fL (80-95); RBC 3.45 10^6/uL (4.36-5.78); RDW 15.4 % (11.8-14.1); RDW-SD 53.3 fL; WBC 3.77 10^3/uL (4.4-10.8)
[2025-02-16 07:00] LABS: Anion Gap 8.4 mmol/L (3-11); CO2 36.6 mmol/L (21.0-32.0); Calcium 9.0 mg/dL (8.5-10.1); Chloride 91 mmol/L (98-107); Estimated GFR 22.21 (mL/min/1.73m2); Glucose 158 mg/dL (74-106); Magnesium 2.4 mg/dL (1.8-2.4); Sodium 136 mmol/L (136-145)
[2025-02-16 07:10] LABS: BUN 175 mg/dL (7-18); Potassium 2.9 mmol/L (3.5-5.1)
[2025-02-16 07:21] LABS: Platelet Count 38 10^3/uL (130-400)
[2025-02-16] MEDS: Carvedilol 12.5 MG TAB PO (08:08)
[2025-02-16] MEDS: Ezetimibe 10 MG TAB PO (08:08)
[2025-02-16] MEDS: Insulin Aspart 300 UNITS/3 ML PEN SC ×4 (08:08→22:02)
[2025-02-16] MEDS: Aspirin E.C. 81 MG TABEC PO (08:08)
[2025-02-16] MEDS: Insulin Glargine 300 UNITS/3 ML PEN 12 UNITS SC (08:09)
--- NOTE | 2025-02-16 08:30 | IN_ITS ---
PT Notes Visit Reasons: weakness, hypokalemia, CKD Physical Therapy Inpatient Initial Evaluation Date: 02/16/2025 Referring Doctor: Jayson Ferguson MD PT Orders: PT CONSULT: Generalized weakness Precautions: Fall. Standard. Activity as tolerated. Patient Profile/Admitting Diagnosis: Braeden is a 64-year-old female who presented to the ED on 02/15/2025 for generalized weakness that started a few weeks ago since admission to a tertiary hospital, blank stares, decreased responsiveness, and inability to walk. Amado bonilla is diagnosed with hypokalemia, geernalized weakness, CKD, HFrEF, elevated troponin, sleep apnea, HTN, autoimmune myopathy, and DM. CT and MRI of the brain was negative for CVA or any acute abnormality. PMHX: All Active Problems (Updated 02/15/25 @ 16:26 by Celso Costa MD) Hypokalemia (Acute) Acute hypokalemia (Acute) Elevated BUN (Acute) Prolonged QT interval (Acute) Generalized weakness (Acute) Ulcer of right lower extremity (Acute) Sacral decubitus ulcer (Acute) CKD (chronic kidney disease) stage 4, GFR 15-29 ml/min (Chronic) Pancytopenia, acquired (Chronic) Pleural effusion (Acute) Restrictive airway disease (Acute) Sleep apnea (Chronic) Ulcer of right foot limited to breakdown of skin (Acute) Hammertoe of right foot (Acute) Osteomyelitis (Acute) Mucocele of tonsil (Acute) Venous stasis ulcer of right ankle limited to breakdown of skin (Acute) Venous insufficiency (Acute) Acute kidney injury superimposed on chronic kidney disease (Acute) Vascular device, implant, or graft infection or inflammation (Acute) MRSA bacteremia (Acute) Surgical site infection (Acute) History of incision and drainage (Acute) Pleural effusion due to CHF (congestive heart failure) (Acute) Anemia due to stage 3 chronic kidney disease (Chronic) Adverse effect of statin (Acute) 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 Baseline is around 70,000Lower extremity cellulitis (Acute) Renal insufficiency (Chronic) Impacted cerumen of both ears (Acute) HTN (hypertension) (Chronic) Cirrhosis of liver (Chronic) Myopathy (Acute) Hearing deficit (Acute) Epistaxis (Acute) Chronic anemia (Chronic) Per Dr. Melendez due to iron deficiency. Venofer 300mg every 3months. Cannot follow ferritin due to myopathy causing nonspecific inflammation. 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 Patient receives IVIG over 2 days every 4 weeks. Patient has never tolerated discontinuation Cellulitis Elevated troponin level not due myocardial infarction Bacteremia Acute on chronic renal insufficiency Subclavian vein thrombosis Barretts esophagus Hyperlipidemia Other pancytopenia History of shingles Nonalcoholic steatohepatitis History of deep vein thrombosis Anemia Hypomagnesemia Diabetic ulcer of right foot Acute non-ST segment elevation myocardial infarction Sepsis Vasculitis Obesity Basal cell carcinoma, face Duodenitis Pancytopenia Shingles DVT (deep venous thrombosis) Pulmonary embolism Gout NSTEMI (non-ST elevated myocardial infarction) Chronic kidney disease Cardiomyopathy MYOPATHY DUE TO DRUGS Hypercholesterolemia Diabetes mellitus Inclusion body myositis Kidney stone Essential hypertension Surgical History History of colonoscopy POWER PORT MUSCLE BIOPSY LITHOTRIPSY Repair of umbilical hernia EGD - MAC (~2009) Colonoscopy - MAC (~2009) Social History/Home Situation: Lives with in a multilevel home with three steps to enter with rails. He has another set of stairs to their bedroom with rails on B sides. Received daily Ig infusion at this hospital previosly. Equipment Owned/DME: Powered wheelchair, FWW, SPC Subjective: Reported pain through his whole spine. Has continuously declined in strength since January. Last walked a bout a week ago at [facility] with the PT there the day before his discharge. Could not walk the day of discharge. has been steadily weakening since then. Objective: General Observation: Reting in bed. R leg erythematous and minimally swollen (chronic now for over a year). Mental Status: Alert and oriented as to person, place, time, and purpose. Able to pay attention, focus, and respond appropriately. Pain: Vital Signs: WNL as closely monitored by nursing staff ROM: Right Upper Extremity: Shoulder Flexion WFL. Shoulder abduction WFL. Elbow flexion WFL. Wrist flexion WFL. Functional opening and closing of hand WFL. Left Upper Extremity: Shoulder Flexion WFL. Shoulder abduction WFL. Elbow flexion WFL. Wrist flexion WFL. Functional opening and closing of hand WFL. Right Lower Extremity: Hip flexion up to 90 degrees only. Hip abduction WFL. Knee flexion 20 degrees to 90 degrees. Knee extension -20 degrees. Ankle dorsiflexion to neutral. Ankle plantarflexion WFL. Left Lower Extremity: Hip flexion up to 90 degrees only. Hip abduction WFL. Knee flexion 20 degrees to 90 degrees. Knee extension -20 degrees. Ankle dorsiflexion to neutral. Ankle plantarflexion WFL. Strength: Right Upper Extremity: Shoulder flexors 3+/5. Shoulder abductors 3+/5. Elbow flexors 4-/5. Elbow extensors 4-/5. Certified Drug Counselor weak but functional. Left Upper Extremity: Shoulder flexors 3+/5. Shoulder abductors 3+/5. Elbow flexors 4-/5. Elbow extensors 4-/5. Certified Drug Counselor weak but functional. Right Lower Extremity: Hip flexors 3-/5. Hip abductors 3-/5. Knee flexors 3-/5. Knee extensors 3-/5. Ankle dorsiflexors 3-/5. Ankle plantarflexors 4-/5. Left Lower Extremity: Hip flexors 3-/5. Hip abductors 3-/5. Knee flexors 3-/5. Knee extensors 3-/5. Ankle dorsiflexors 3-/5. Ankle plantarflexors 4-/5. Bed Mobility/Transfers: Moderate cueing provided for use of B hands as needed for support, movement sequence, AD management, and posture to reduce fall risk and minimize pain report Rolling moderate assist using B rails for support Supine to sit moderate assist using B rails for support Sit to supine moderate assist using B rails for support Sit to stand minimal assist of 2 using FWW Stand to sit minimal assist of 2 using FWW Bed to reclining chair minimal assist of 2 using FWW Reclining chair to bed minimal assist of 2 using FWW Gait: Instructed patient with level surface ambulation of 8 steps using FWW indepedently. Sarika decreased. Step height on R decreased. Step length on R decreased. Fatigued after activity. Patient appeared very shaky. Stairs: Not done Balance: Static Sitting: Normal Dynamic Sitting: Normal Static Standing: Fair Dynamic Standing: Fair Special Tests: Mobility Limitations Standardized Measure [facility] AM-PAC 6 clicks Basic Mobility Inpatient Short Form: Raw Score: 12 CMS Score: 69% deficit Informed Consent/Education: Patient was instructed in purpose of PT consult and plan of care. Agreeable to proceed with established PT POC to achieve personal goals. Assessment: Patient with autoimmune myopathy who demonstrated functional mobility decline resulting from worsening generalized weakness, hypokalemia, HFrEF, elevated troponin, and HTN. Patient presents with clinical signs and symptoms consistent with current/admitting diagnoses that have resulted to mobility limitations, gait instability, and overall ADL decline as demonstrated by the following impairment level findings: 1. Decreased strength to B UE/LE major muscle groups 2. Impaired static and dynamic standing balance 3. Impaired activity tolerance 4. Easy fatiguability Impairments are contributing to the following functional limitations: 1. Difficulty with ambulation without assistive device 2. Increased completion time for mobility ADL performance 3. Increased risk for falls 4. Difficulty with managing steps alone safely Patient is assessed as a 22416 moderate complexity based on the following: History: 62-year-old male with past medical history as indicated above Examination: Demonstrable impairment in strength, balance, and mobility level with underlying impairments and functional limitations as exhibited above as well as deficit score of 11% utilizing the [facility] Mobility Inpatient Short Form Presentation: Evolving Decision Makin moderate complexity Goals: Goals X1 week 1. Supine-Sit independent 2. Sit-Supine independent 3. Sit-Stand independent 4. Stand-Sit independent 5. Bed-Chair independent 6. Chair-Bed independent 7. Independent gait on level surface with use of least restrictive device for at least 150 feet without report of pain nor dyspnea 8. Independent stair negotiation while holding onto bilateral rails for at least 3 steps without report of pain nor dyspnea 9. Independent with home exercise program 10. Good static and dynamic standing balance/tolerance Plan of Care/Treatment Plan: 1/day, 7 days/week x 1 week. Plan of care has been reviewed with the INNER TUBE TUBER MACHINE OPERATOR providing the service under Physical Therapy direction. Initiate Physical Therapy intervention for pain management as needed, stairs, balance training, and use of assistive device. DISCHARGE RECOMMENDATIONS: PT vs short-term SNF based on progress towards goals TREATMENT CODE/TIME: 06718 x 28 minutes for 1 unit (8:30-8:58). Thank you for the opportunity to participate in the care of this patient. Bri Ryder PT, DPT, CLT [facility] [place], [place]
[2025-02-16] MEDS: POTASSIUM CHLORIDE 20 MEQ/100 ML BAG 50 MEQ IV_INF ×2 (09:45→13:24)
--- NOTE | 2025-02-16 09:48 | INITIAL_ITS ---
Date of service: 02/16/25 Time of Service: 09:48 Care Management Initial Assmt Initial Assessment Reason for Hospitalization: Weakness, Hypokalemia Functional Status/Living Situation Patient Presentation: Bucky was awake and lying in bed when CM met with him. He is currently being monitored and treated for hypokalemia and generalized weakness. Bucky reported feeling very tired, and conversation was somewhat limited. . Teleneuro, Palliative, and a wound consult is pending. PT recommends New HH PT vs short-term SNF based on progress towards goals. Patient may be appropriate for SWB1 once medically ready for step down care. CM will follow and support discharge planning needs when better known. Town of Residence: [place], [place] but address in [place] Resides with: Spouse ( Bethanie) Significant Other/Family: Local [employer]: and 4 sons, all of whom live in [place] Employment Status: Disabled (disabled since 2010) Employment Status: Disabled (since 2010) Instrumental Activities of Daily Living (ADLs): Independent Medications Medication Management: No Issues/Barriers identified Physical Functioning/Mobility Assistive Device: Uses cane regularly, also has a walker, scooter and other assistive equipment which he uses as needed. Advance Directives Advance Directives: Do you have an Advance Directive: Y , 09:55 AD On File at [facility]: Y 11/30/24, 09:55 Date Asked 01/04/24 11/30/24, 09:55 AD Date Reviewed 02/15/25 02/15/25, 07:00 COLST On File at [facility] No 11/30/24, 09:55 COLST Date Scanned Code Status Resuscitation Status Full Code Insurance Coverage/Financial Issues Insurance: Medicare Part A & B - [id number] Care Team Visit Care Team Role Provider Type Jazmine Baer MD Primary Care Provider [facility] STAFF PHYSICIAN InPatient Donato Melendrez Other Providers OTHER Jayson Ferguson MD Emergency Provider [facility] STAFF PHYSICIAN Celso Costa MD Admit Provider [facility] STAFF PHYSICIAN Attending Provider Discharge Potential Discharge Needs: PCP F/U Appt Anticipated Barriers to Discharge: None Identified Patient/Family Education Needs: Review discharge instructions, discuss Ask Me Three Transportation: Private vehicle Plan: PT recommends New HH PT vs short-term SNF based on progress towards goals ( patient may be appropriate for SWB1 here when ready for step down care.) Patient lives in [place] therefor if patient discharge home HH services will be through [facility] (if needed.) CM will follow. Social Determinants of Health Screening Social Determinants of health last assessed in clinic: 02/15/25 Will the Patient Participate in the Screening?: Declined to provide Do you worry about having a steady place to live?: no Problems where you live: no known problems In the past 12 months, have you had to go without electric, gas, oil or water in your home?: no Has lack of transportation kept you from medical appointments or from doing things needed for daily living?: no Has anyone in your life made you feel unsafe or unsupported?: no How hard is it for you to pay for the very basics like food, housing, medical care, and heating? Would you say it is:: Not hard at all Do you want help finding or keeping work or a job?: I do not need or want help If for any reason you need help with day-to-day activities such as bathing, preparing meals, shopping, managing finances, etc., do you get the help you need?: I don?t need any help How often do you feel lonely or isolated from those around you?: Never Do you speak a language other than Pashto at home?: No Does the patient want assistance with any of the above?: No PFSH All Active Problems (Updated 02/15/25 @ 16:26 by Celso Costa MD) Hypokalemia (Acute) Acute hypokalemia (Acute) Elevated BUN (Acute) Prolonged QT interval (Acute) Generalized weakness (Acute) Ulcer of right lower extremity (Acute) Sacral decubitus ulcer (Acute) CKD (chronic kidney disease) stage 4, GFR 15-29 ml/min (Chronic) Pancytopenia, acquired (Chronic) Pleural effusion (Acute) Restrictive airway disease (Acute) Sleep apnea (Chronic) Ulcer of right foot limited to breakdown of skin (Acute) Hammertoe of right foot (Acute) Osteomyelitis (Acute) Mucocele of tonsil (Acute) Venous stasis ulcer of right ankle limited to breakdown of skin (Acute) Venous insufficiency (Acute) Acute kidney injury superimposed on chronic kidney disease (Acute) Vascular device, implant, or graft infection or inflammation (Acute) MRSA bacteremia (Acute) Surgical site infection (Acute) History of incision and drainage (Acute) Pleural effusion due to CHF (congestive heart failure) (Acute) Anemia due to stage 3 chronic kidney disease (Chronic) Adverse effect of statin (Acute) 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 Baseline is around 70,000 Lower extremity cellulitis (Acute) Renal insufficiency (Chronic) Impacted cerumen of both ears (Acute) HTN (hypertension) (Chronic) Cirrhosis of liver (Chronic) Myopathy (Acute) Hearing deficit (Acute) Epistaxis (Acute) Chronic anemia (Chronic) Per Dr. Melendez due to iron deficiency. Venofer 300mg every 3months. Cannot follow ferritin due to myopathy causing nonspecific inflammation. 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 Patient receives IVIG over 2 days every 4 weeks. Patient has never tolerated discontinuation Cellulitis Elevated troponin level not due myocardial infarction Bacteremia Acute on chronic renal insufficiency Subclavian vein thrombosis Barretts esophagus Hyperlipidemia Other pancytopenia History of shingles Nonalcoholic steatohepatitis History of deep vein thrombosis Anemia Hypomagnesemia Diabetic ulcer of right foot Acute non-ST segment elevation myocardial infarction Sepsis Vasculitis Obesity Basal cell carcinoma, face Duodenitis Pancytopenia Shingles DVT (deep venous thrombosis) Pulmonary embolism Gout NSTEMI (non-ST elevated myocardial infarction) Chronic kidney disease Cardiomyopathy 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 Sister Diabetes PATERNAL UNCLE Personal history of malignant neoplasm STOMACH Social History Smoking/Tobacco Use Status: Never Smoking risk assessment performed?: Yes Alcohol Intake: never Drug use: Never Substance use type: does not use Housing: house Do you feel safe at home: Yes Do you feel safe in your relationship?: Yes
[2025-02-16] MEDS: Acetaminophen 325 MG TAB 650 MG PO (10:19)
[2025-02-16] MEDS: Losartan 50 MG TAB PO (10:20)
[2025-02-16] MEDS: Spironolactone 25 MG TAB PO (10:25)
--- NOTE | 2025-02-16 15:19 | W.PM.PROGNOT ---
Date of Service Date of service: 02/16/25 Time of Service: 15:19 Assessment and Plan Assessment and plan (1) Hypokalemia: Status: Acute Assessment and plan: - Potassium found to be 2.9, likely in the setting of overdiuresis with recent hospitalization for CHF exacerbation and worsening CKD - Status post 40 mEq p.o. potassium in the emergency department -Potassium 2.9 on the morning of 02/16/2025, gave 40 mEq IV - Follow-up a.m. BMP (2) Generalized weakness: Status: Acute Assessment and plan: - Thought to have potentially been due to CVA however CT angio and MRI negative - Likely due to a combination of autoimmune myopathy as well as hypokalemia and overdiuresis - Potassium replaced as noted above - Status post 500 mL bolus in emergency department - Appreciate PT consultation (3) CKD (chronic kidney disease) stage 3, GFR 30-59 ml/min: Assessment and plan: -Continued worsening kidney function since last hospitalization with an increase of creatinine now up to 3.3 and BUN 180 (baseline creatinine about 2.8, BUN about 160) - Status post 500 mL below this in the emergency department BUN and creatinine roughly-the same as admission on 02/16/2025, BUN 175, creatinine 3.0 -Patient reportedly making urine, will monitor during hospitalization - [place]ed [place] [facility] [place] had 2 prolonged stays over the last 2 months for fluid overload secondary to heart failure exacerbation and CKD stage IV requiring significant diuresis which did eventually lead to urine output - Patient was discharged from [facility] on 10 of Bumex twice daily, 5 mg metolazone daily, 2050 mg acetazolamide twice daily, 20 mEq of potassium daily, 25 mg of spironolactone daily - Still think that patient may be somewhat fluid down, therefore he is on 50 mL/h of IV fluids - Did attempt to restart patient's losartan but he became dizzy - Will need to closely monitor patient's blood pressure, urine output, and fluid intake as it may be difficult to balance fluid intake and diuresis (4) HFrEF (heart failure with reduced ejection fraction): Status: Chronic Assessment and plan: - Currently without acute exacerbation - Upon reviewing patient[place] [facility] [place] he most recently had an ejection fraction of 26% with severe dilated left ventricle and in early December underwent complex PCI as he was found to have obstructive coronary artery disease but was not considered a candidate for bypass. - Working on fluid balance as noted above (5) Elevated troponin: Status: Resolved Assessment and plan: -Chronic, due to CKD and cardiomyopathy (6) Sleep apnea: Status: Chronic Assessment and plan: - History of CPAP intolerance (7) HTN (hypertension): Status: Chronic Assessment and plan: - Managing home antihypertensive/diuretics as noted above (8) Autoimmune myopathy: Assessment and plan: - History of, receives IVIG therapy (9) Diabetes mellitus: Assessment and plan: - Continue home long-acting - Carb consistent diet, sliding scale insulin Subjective Subjective Interval history since last seen: Patient states that he did not sleep well and is a little dizzy otherwise has no other complaints or concerns at this time Exam Narrative Exam Narrative: Fatigued, chronically ill-appearing gentleman laying in bed in no acute distress, ANO x 4, heart regulate rhythm, lungs good auscultation bilaterally, abdomen soft, nontender, nondistended, generalized global weakness of bilateral upper and lower extremities without any focal neurologic deficits Objective Last Vital Signs Temp 98.1 F 02/16/25 11:51 Pulse 58 L 02/16/25 14:00 Resp 17 02/16/25 11:51 BP 92/48 L 02/16/25 14:00 Pulse Ox 98 02/16/25 11:51 Laboratory Results - last 24 hr 02/15/25 02/16/25 13:45 06:23 WBC 3.77 L RBC 3.45 L Hgb 10.7 L Hct 32.9 L MCV 95 MCH 31.0 MCHC 32.5 RDW 15.4 H Plt Count 38 L MPV Sodium 136 Potassium 2.9 L* Chloride 91 L Carbon Dioxide 36.6 H Anion Gap 8.4 BUN 175 H* Creatinine 3.0 H Est GFR (CKD-EPI 2020) 22.21 Glucose 158 H Calcium 9.0 Magnesium 2.4 NT-Pro-B Natriuret Pep > 07963 H Add-On Test Request DONE Time Spent with Patient Time Spent with Patient: >50 minutes Time was spent: preparing to see the patient(eg.review tests), obtaining and/or reviewing separately otained hiistory, ordering medications,tests, procedures, referring, communicating with other health acute care certified nursing assistant, indepentently interpreting results, counseling the patient and care coordination
--- NOTE | 2025-02-16 20:12 | SUR.INTRAOP ---
At 1800, the patient Bucky Roblero BP is 114/70 and pulse teetering between 56 and 60. The patient had a bladder scan of 151 and has not peed for 3 hours ( last urination was approximately 300mls). Dr. Costa was notified and the order for bumex was requested to be not given due to prior potassium replacement (20 mEq x2) for a K of 2.9. Also, noting a creatinine of 3.0, platelets 49 and BUN 175. When patient arrived the day prior, his lower bilateral extremities were half edematous (thighs to knees only)- shins and below, the patient had no edema. This afternoon (12pm) for his neuro check he did very well on 5/5 on upper bilateral extremities and lower extremities 5/5 on the right and 2/5 on the left. He was able to ambulate prior to lunch to the bedside commode and had a normal medium sized brown bowel movement.
[2025-02-16] MEDS: Normal Saline 1,000 ML 250 ML IV (20:54)
[2025-02-16] MEDS: Normal Saline 1,000 ML 50 ML IV (22:04)
[2025-02-17] VITALS (94 sets, daily range): BP systolic 70–104; BP diastolic 35–81; PULSE 60–88; RESP 11–27; TEMP 35.7–36.8; O2SAT 96–100
[2025-02-17 08:05] LABS: Abs Immature Grans 0.02 10^3/uL (0.0-0.06); HCT 31.8 % (40.0-50.0); HGB 10.2 g/dL (13.5-17.5); Immature Grans % 0.5 %; MCH 31.4 pg (27.0-33.0); MCHC 32.1 % (32.0-36.0); MCV 98 fL (80-95); MPV 12.8 fL (8.0-11.0); RBC 3.25 10^6/uL (4.36-5.78); RDW 15.5 % (11.8-14.1); RDW-SD 55.6 fL; WBC 4.07 10^3/uL (4.4-10.8)
[2025-02-17 08:16] LABS: Platelet Count 40 10^3/uL (130-400); RBC Morphology Normal
[2025-02-17 08:37] LABS: ALT 19 U/L (16-63); AST 35 U/L (15-37); Albumin 2.3 g/dL (3.4-5.0); Alkaline Phosphatase 170 U/L (46-116); Anion Gap 5.4 mmol/L (3-11); Bilirubin, Total 1.2 mg/dL (0.2-1.0); CO2 36.6 mmol/L (21.0-32.0); Calcium 8.8 mg/dL (8.5-10.1); Chloride 93 mmol/L (98-107); Estimated GFR 16.73 (mL/min/1.73m2); Glucose 142 mg/dL (74-106); Potassium 4.2 mmol/L (3.5-5.1); Sodium 135 mmol/L (136-145); Total Protein 6.8 g/dL (6.4-8.2)
[2025-02-17 08:59] LABS: BUN 197 mg/dL (7-18)
[2025-02-17] MEDS: Ezetimibe 10 MG TAB PO (09:19)
[2025-02-17] MEDS: Insulin Glargine 300 UNITS/3 ML PEN 12 UNITS SC (09:20)
[2025-02-17] MEDS: Insulin Aspart 300 UNITS/3 ML PEN SC ×4 (09:20→22:02)
--- NOTE | 2025-02-17 10:28 | PCNE_ITS ---
Date of service: 02/17/25 Time of Service: 10:00 History of Present Illness Narrative: Mr. Saldana is a 64 y/o M currently hospitalized at [facility] 2/2 weakness and hypokalemia; PMHx sig for CKD (st4), CHF (last EF 26%), DEAN, DM, autoimmune myopathy (IVIG 2x/m); present at bedside Bethanie Hospital Course: presented to ED on 02/15 w/CC weakness, worsening x2 d; ED work up consistent for hypokalemia in setting of overdiuresis, pot 40mg IV in ED; CT/MRI neg for acute process; BUN/Cr elevated above baseline at 180/3.1, given IVF; admitted for ongoing management; PT consult recommend HH vs SNF; 02/16 BUN/Cr relatively the same,however worsened 02/17 to 197/3.8; continue IVF rate reduced from 50 to 25mL/hr, restart diuresis protocol established w/DH stay today; nosebleed today, planning for packing this morning - per staff: 3 pers assist w/transfers, not getting OOB today d/t wound on LLE Les and Bethanie provide report Recent history: in December was walking WNL using cart/WC as walk aid outside of home, driving, feeling well; 2 prolonged hospitalization stays in , over 1 mo, for CHF exac (EF 26%) and CKD (sig diuresis regimen); since returning home has had sig weakness, reduced urine and fatigue; - he has lost around 80lbs from December to now CKD: aware of end stage renal disease, they were considering starting him on temp dialysis in but didn't need to after med interventions corrected renal failure enough to avoid this; 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 Heart: aware that has heart disease, did have 2 stents placed during hospitalization above, also has a bad valve which they would want to replace, however bc of his current condition they did not feel he was a surgical candidate Nose: he has had 3 recent uncontrolled bloody noses, today is the 4th; h/o cauterization , was told this was not longer an appropriate treatment option Pain: reports pain today in spine, at home donut pillow works to relieve this, apap w/good effect as well; would prefer to start with these today Social: lives in [place] w/ Bethanie and their dog Niya; 4 children, Farrukh, Celso, Earnest, Eliceo, all involved; hoping to relocate closer to [facility] or hospitals bc they are not happy w/care in local hospital. sons will potentially be helping w/this - financially concerned about hotel room while he is in tertiary hospital, did previously receive some funding from local [employer]. - [employer] ACP: would like to know why repeat nose bleeds, reduced urine, increased shakiness/weakness; - previously completed AD: [facility] Bethanie, Farrukh, other children; all LST as long as possible, by any means, trial interventions; today feels this is UTD, a trial would be 1 mo for him today - they would like to be transferred to if possible [facility]; initially dx at [facility] in [place], would accept referral there if has no openings Assessment and Plan Assessment and plan (1) Hypokalemia: Status: Acute Assessment and plan: continue potassium IV supplementation suspected r/t overdiuresis (2) Generalized weakness: Status: Acute Assessment and plan: ongoing, PT consult recommend HH vs SNF today is a 3 person assist w/transfers (3) CKD (chronic kidney disease) stage 4, GFR 15-29 ml/min: Status: Chronic Assessment and plan: restart diuresis protocol - discharged from [facility] on 10 of Bumex BID, 5 mg metolazone qd, 2050 mg acetazolamide BID, 20 mEq of potassium qd, 25 mg of spironolactone qd pending transfer today; preferred, [place], agreeable to any tertiary center for appropriate care - would want to start dialysis at this time (4) Epistaxis: Status: Acute Assessment and plan: nose packed today; ED provider on standby, may consult ENT Dr Gianni UREÑA daytime today as well h/o 3 cauterizations at , was told no longer an option (5) Acute kidney injury superimposed on chronic kidney disease: Status: Acute Assessment and plan: as above (6) HFrEF (heart failure with reduced ejection fraction): Status: Chronic Assessment and plan: EF at 26% h/o recent hospitalization 2/2 acute exacerbation w/fluid overload (7) 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 2x/mo at [facility] (8) Ambulatory dysfunction: Status: Acute Assessment and plan: on fall precautions (9) Impaired instrumental activities of daily living: Status: Acute Assessment and plan: providing support at this time consider COA referral pending discharge dispo (10) Palliative care encounter: Status: Acute Assessment and plan: PC will continue to follow as able pending transfer status; recommend request palliative at tertiary facility - provided number to contact PC office pending next steps, may consider f/u during dialysis (11) ACP (advance care planning): Status: Acute Assessment and plan: reviewed recommendations for transfer for CKD management, likely start of dialysis; Les would want to pursue this today, hospitalist working on transfer options reviewed questions outlined in HPI; blood nose 2/2 low platelets low urine production 2/2 CKD worsening, weakness likely multifactorial w/CKD/CHF biggest contributors reviewed AD, UTD; would want all LST trialed, including CPR, intubation, dialysis; would want to be kept alive as long as not in vegetative state, would want trials for 1 mos prior to discontinuing LST; Bethanie in room for this conversation reviewed relocation goals, and potential funding resources for hotel stay at hospital; consider palliative care funds reviewed briefly dialysis requirements: 3d/wk, location, a few hours each time, 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, so feels has a sense of what this looks like reviewed pain management, would like to start w/donut and apap today spent 35m w/ACP Review of Systems Narrative: as per HPI PFSH All Active Problems (Updated 02/17/25 @ 10:38 by Aisha Morris NP) Impaired instrumental activities of daily living (Acute) Palliative care encounter (Acute) Ambulatory dysfunction (Acute) ACP (advance care planning) (Acute) Hypokalemia (Acute) Acute hypokalemia (Acute) Elevated BUN (Acute) Prolonged QT interval (Acute) Generalized weakness (Acute) Ulcer of right lower extremity (Acute) Sacral decubitus ulcer (Acute) CKD (chronic kidney disease) stage 4, GFR 15-29 ml/min (Chronic) Pancytopenia, acquired (Chronic) Pleural effusion (Acute) Restrictive airway disease (Acute) Sleep apnea (Chronic) Ulcer of right foot limited to breakdown of skin (Acute) Hammertoe of right foot (Acute) Osteomyelitis (Acute) Mucocele of tonsil (Acute) Venous stasis ulcer of right ankle limited to breakdown of skin (Acute) Venous insufficiency (Acute) Acute kidney injury superimposed on chronic kidney disease (Acute) Vascular device, implant, or graft infection or inflammation (Acute) MRSA bacteremia (Acute) Surgical site infection (Acute) History of incision and drainage (Acute) Pleural effusion due to CHF (congestive heart failure) (Acute) Anemia due to stage 3 chronic kidney disease (Chronic) Adverse effect of statin (Acute) 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 Baseline is around 70,000 Lower extremity cellulitis (Acute) Renal insufficiency (Chronic) Impacted cerumen of both ears (Acute) HTN (hypertension) (Chronic) Cirrhosis of liver (Chronic) Myopathy (Acute) Hearing deficit (Acute) Epistaxis (Acute) Chronic anemia (Chronic) Per Dr. Melendez due to iron deficiency. Venofer 300mg every 3months. Cannot follow ferritin due to myopathy causing nonspecific inflammation. 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 Patient receives IVIG over 2 days every 4 weeks. Patient has never tolerated discontinuation Cellulitis Elevated troponin level not due myocardial infarction Bacteremia Acute on chronic renal insufficiency Subclavian vein thrombosis Barretts esophagus Hyperlipidemia Other pancytopenia History of shingles Nonalcoholic steatohepatitis History of deep vein thrombosis Anemia Hypomagnesemia Diabetic ulcer of right foot Acute non-ST segment elevation myocardial infarction Sepsis Vasculitis Obesity Basal cell carcinoma, face Duodenitis Pancytopenia Shingles DVT (deep venous thrombosis) Pulmonary embolism Gout NSTEMI (non-ST elevated myocardial infarction) Chronic kidney disease Cardiomyopathy 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 Sister Diabetes PATERNAL UNCLE Personal history of malignant neoplasm STOMACH Social History Smoking/Tobacco Use Status: Never Smoking risk assessment performed?: Yes Alcohol Intake: never Drug use: Never Substance use type: does not use Housing: house Do you feel safe at home: Yes Do you feel safe in your relationship?: Yes Exam Narrative Exam Narrative: General: 64 y/oM frail/ill appearing older than stated age; lying in hosp bed, at bedside, lethargic HEENT: hearing grossly WNL; atraumatic, normocephalic, MMM; nose packing in place bilat nares, clean dressing at 2nd visit; Resp: even and unlabored; speaks 1-3 sentences w/no resp changes; no cough or audible wheeze Skin: scattered bruising noted throughout, predominately seen in BUE, did not conduct full skin exam; skin atrophy, dry Psych: cooperative, fatigued but engages readily/easily; appears guarded initially however does engage w/time, delayed answers; speech clear; thought process normal w/some loose association/impoverished thinking around serious illness; insight/judgment limited to fair Results Last Vital Signs Temp 96.4 F L 02/17/25 07:12 Pulse 69 02/17/25 07:12 Resp 16 02/17/25 07:12 BP 80/48 L 02/17/25 07:12 Pulse Ox 100 02/17/25 07:12 Labs 02/17/25 08:00 02/17/25 08:00 Labs: Laboratory Results - last 24 hr 02/17/25 08:00 WBC 4.07 L RBC 3.25 L Hgb 10.2 L Hct 31.8 L MCV 98 H MCH 31.4 MCHC 32.1 RDW 15.5 H Plt Count 40 L MPV 12.8 H Immature Gran % 0.5 Neutrophils % 76.3 Lymphocytes % 5.2 Monocytes % 8.4 Eosinophils % 8.6 Basophils % 1.0 Nucleated RBC % 0.0 Absolute Neutrophils 3.11 Absolute Lymphocytes 0.21 L Absolute Monocytes 0.34 Absolute Eosinophils 0.35 Absolute Basophils 0.04 RBC Morphology Normal Sodium 135 L Potassium 4.2 D Chloride 93 L Carbon Dioxide 36.6 H Anion Gap 5.4 BUN 197 H* Creatinine 3.8 H* Est GFR (CKD-EPI 2020) 16.73 Glucose 142 H Calcium 8.8 Total Bilirubin 1.2 H AST 35 ALT 19 Alkaline Phosphatase 170 H Total Protein 6.8 Albumin 2.3 L Time Spent Time Spent with Patient Time Spent(min): 100
--- NOTE | 2025-02-17 11:17 | PDOC.CMPRO ---
Date of service: 02/17/25 Time of Service: 11:20 Care Management Progress Note Progress Note Text Progress Note Text: Bucky was sitting in his chair and visiting with his when CM met with him. Per report, he will be restarted on his diaeresis medication and he will need to be transferred to a tertiary facility for a higher level of care. Bucky shares he had a bloody nose today and has had a few in the past. CM offered community resource pamphlets to Les and Bethanie. CM will continue to follow. Discharge Potential Discharge Needs: PCP F/U Appt Anticipated Barriers to Discharge: None Identified Patient/Family Education Needs: Review discharge instructions, discuss Ask Me Three Transportation: Private vehicle Plan: Anticipate Les will be transferred to a tertiary facility for a higher level of care. PT recommends New HH PT vs short-term SNF based on progress towards goals. It is recommended he follow up with his community providers, palliative care team, and discharge plan of care. He will likely be transported via EMS. CM will continue to follow. Social Determinants of Health Screening Social Determinants of health last assessed in clinic: 02/15/25 Will the Patient Participate in the Screening?: Declined to provide Do you worry about having a steady place to live?: no Problems where you live: no known problems In the past 12 months, have you had to go without electric, gas, oil or water in your home?: no Has lack of transportation kept you from medical appointments or from doing things needed for daily living?: no Has anyone in your life made you feel unsafe or unsupported?: no How hard is it for you to pay for the very basics like food, housing, medical care, and heating? Would you say it is:: Not hard at all Do you want help finding or keeping work or a job?: I do not need or want help If for any reason you need help with day-to-day activities such as bathing, preparing meals, shopping, managing finances, etc., do you get the help you need?: I don?t need any help How often do you feel lonely or isolated from those around you?: Never Do you speak a language other than Portuguese at home?: No Does the patient want assistance with any of the above?: No
[2025-02-17] MEDS: Tranexamic Acid 1,000 MG/10 ML VIAL 500 MG NS (11:21)
[2025-02-17] MEDS: Oxymetazolone 0.05% SPRAY 15 ML BTL NS (11:22)
[2025-02-17] MEDS: Normal Saline 1,000 ML 25 ML IV ×3 (12:19→18:49)
--- NOTE | 2025-02-17 14:25 | PTTR_ITS ---
PT Notes Visit Reasons: weakness, hypokalemia, CKD Physical Therapy Inpatient Treatment Note Date: 02/17/2025 Precautions: Fall. Standard. Activity as tolerated. Subjective: Very weak. Did not want to do anything strenuous today. Awaiting tertiary hopsital placement. Deferred PT earlier this morning due to ongoing nose bleeding which nursing staff has been managing. Wanted to transfer onto chair as his bottom was starting to hurt. Objective: General Observation: Resting in bed. Dressing to nose R from this morning's nosebleed. R leg erythematous and minimally swollen (chronic now for over a year). Mental Status: Alert and oriented as to person, place, time, and purpose. Able to pay attention, focus, and respond appropriately. Pain: Generalized pain Vital Signs: WNL as closely monitored by nursing staff Bed Mobility/Transfers: Moderate cueing provided for use of B hands as needed for support, movement sequence, AD management, and posture to reduce fall risk and minimize pain report Rolling minimal assist Supine to sit minimal assist by Nurse Krishnan Sit to stand contact guard assist using FWW, Nurse Hinds provided stand by assist for safety Stand to sit contact guard assist using FWW, Nurse Hinds provided stand by assist for safety Bed to reclining contact guard assist using FWW, Nurse Hinds provided stand by assist for safety Gait: Instructed patient with level surface ambulation of 8 steps using FWW with conatct guard assist and stand by assist of Nurse Krishnan for safety. Sarika decreased. Step height on R decreased. Step length on R decreased. Fatigued after activity. Patient appeared very shaky. Stairs: Not done Balance: Static Sitting: Normal Dynamic Sitting: Normal Static Standing: Fair Dynamic Standing: Fair Assessment: Exhausted after transfer to chair. Did not want to d o anything due to extreme fatigue from autoimmune myopathy. Patient was comfortably positioned Plan of Care/Treatment Plan: 1x/day, 7 days/week x 1 week. Plan of care has been reviewed with the LUNCHROOM SUPERVISOR providing the service under Physical Therapy direction. Initiate Physical Therapy intervention for pain management as needed, stairs, balance training, and use of assistive device. DISCHARGE RECOMMENDATIONS: PT vs short-term SNF based on progress towards goals TREATMENT CODE/TIME: [id number] 15 minutes for 1 unit (14:25-14:40).
--- NOTE | 2025-02-17 15:13 | CHAPLAIN ---
Bucky was resting in bed, and his was with him when I visited. He'd had a significant nose bleed this morning and has been tired in general. They are waiting to hear if he'll be admitted to [facility] or a [facility]. Bucky has had two long hospitals stays at [facility] and hopes he can return there because he knows the doctors and his can stay in the room with him. If they go to [place] there is concern for the cost of the hotel and parking. (The hotel charges $25/night for parking even if you're staying in the hotel.) I explained my role and offered support.
[2025-02-17] MEDS: Acetaminophen 325 MG TAB 650 MG PO (15:31)
--- NOTE | 2025-02-17 16:31 | PGE_ITS ---
Date of Service Date of service: 02/17/25 Time of Service: 09:00 Assessment and Plan Assessment and plan (1) Acute on chronic renal failure: Status: Acute Assessment and plan: Worsening renal failure likely secondary to diuretics Very little UO, 75 ml today Hypotension with diuresis after small fluid boluses, transferred to ICU for pressors Now off diuretics, getting fluid boluses Contacted [facility] transfer center, they may have room at [place] (2) Hypokalemia: Status: Resolved Assessment and plan: - Potassium found to be 2.9, likely in the setting of overdiuresis with recent hospitalization for CHF exacerbation and worsening CKD - Status post 40 mEq p.o. potassium in the emergency department -Potassium 2.9 on the morning of 02/16/2025, gave 40 mEq IV - resolved on morning labs (3) Generalized weakness: Status: Acute Assessment and plan: - Thought to have potentially been due to CVA however CT angio and MRI negative - Likely due to a combination of autoimmune myopathy as well as hypokalemia and overdiuresis - Potassium replaced as noted above - Status post 500 mL bolus in emergency department - Appreciate PT consultation (4) HFrEF (heart failure with reduced ejection fraction): Status: Chronic Assessment and plan: - Currently without acute exacerbation - Upon reviewing patient's [facility] records he most recently had an ejection fraction of 26% with severe dilated left ventricle and in early December underwent complex PCI as he was found to have obstructive coronary artery disease but was not considered a candidate for bypass. - Working on fluid balance as noted above (5) Elevated troponin: Status: Resolved Assessment and plan: -Chronic, due to CKD and cardiomyopathy (6) Sleep apnea: Status: Chronic Assessment and plan: - History of CPAP intolerance (7) HTN (hypertension): Status: Chronic Assessment and plan: - Holding home antihypertensives due to hypotension (8) Autoimmune myopathy: Assessment and plan: - History of, receives IVIG therapy - Last IVIG was prior to his [facility] hospitalizations (9) Diabetes mellitus: Assessment and plan: - Continue home long-acting - Carb consistent diet, sliding scale insulin Subjective Subjective Interval history since last seen: Mr Acevedo is awake and alert. He has a nosebleed and is frustrated by it. His legs feel swollen. He feels tired. Exam Narrative Exam Narrative: General: This is a pleasant, chronically ill-appearing man in mild distress due to epistaxis HEENT: normocephalic, atraumatic CV: RRR Resp: CTAB Abd: soft, NTND MSK: voluntary motion x4 Neuro: awake and alert, CN II-XII intact, BUE/BLE weakness Objective Last Vital Signs Temp 35.9 C L 02/17/25 14:54 Pulse 67 02/17/25 14:54 Resp 16 02/17/25 14:54 BP 78/42 L 02/17/25 14:54 Pulse Ox 99 02/17/25 14:54 Laboratory Results - last 24 hr 02/17/25 08:00 WBC 4.07 L RBC 3.25 L Hgb 10.2 L Hct 31.8 L MCV 98 H MCH 31.4 MCHC 32.1 RDW 15.5 H Plt Count 40 L MPV 12.8 H Immature Gran % 0.5 Neutrophils % 76.3 Lymphocytes % 5.2 Monocytes % 8.4 Eosinophils % 8.6 Basophils % 1.0 Nucleated RBC % 0.0 Absolute Neutrophils 3.11 Absolute Lymphocytes 0.21 L Absolute Monocytes 0.34 Absolute Eosinophils 0.35 Absolute Basophils 0.04 RBC Morphology Normal Sodium 135 L Potassium 4.2 D Chloride 93 L Carbon Dioxide 36.6 H Anion Gap 5.4 BUN 197 H* Creatinine 3.8 H* Est GFR (CKD-EPI 2020) 16.73 Glucose 142 H Calcium 8.8 Total Bilirubin 1.2 H AST 35 ALT 19 Alkaline Phosphatase 170 H Total Protein 6.8 Albumin 2.3 L Time Spent with Patient Time Spent with Patient: 35-49 minutes Time was spent: preparing to see the patient(eg.review tests), obtaining and/or reviewing separately otained hiistory, ordering medications,tests, procedures, referring, communicating with other health rn care manager, indepentently interpreting results, counseling the patient and care coordination
[2025-02-17] MEDS: Normal Saline 500 ML IV (17:13)
[2025-02-17 17:52] LABS: Anion Gap 9.9 mmol/L (3-11); CO2 33.1 mmol/L (21.0-32.0); Calcium 8.9 mg/dL (8.5-10.1); Chloride 90 mmol/L (98-107); Estimated GFR 15.27 (mL/min/1.73m2); Glucose 185 mg/dL (74-106); Potassium 4.0 mmol/L (3.5-5.1); Sodium 133 mmol/L (136-145)
[2025-02-17 17:53] LABS: BUN 193 mg/dL (7-18)
[2025-02-17] MEDS: Normal Saline Flush 10 ML SYR IVP (19:07)
[2025-02-17] MEDS: ALBUMIN HUMAN 25 GM/100 ML BTL IVPB (19:19)
--- NOTE | 2025-02-17 23:45 | RT.EKG_ITS ---
APPROVED REPORT Exam: Resting ECG Reason for Exam: 12 beat run of [place] Patient Location: I HR:82 bpm ECG Measurements Heart Rate 82 AXIS ME 217 P 55 QRSd 149 QRS -29 QT 432 T 128 QTc 505 Conclusion Sinus rhythm...normal P axis, V-rate 50- 99 Borderline prolonged ME interval...ME >212, V-rate 50- 90 IVCD, consider atypical LBBB...QRSd>120, notch/slur R I aVL V5-6
[2025-02-18] VITALS (103 sets, daily range): BP systolic 80–130; BP diastolic 40–91; PULSE 67–206; RESP 6–30; TEMP 36.4–36.6; O2SAT 90–100
[2025-02-18 00:16] LABS: Magnesium 2.5 mg/dL (1.8-2.4)
[2025-02-18] MEDS: Ezetimibe 10 MG TAB PO (07:40)
[2025-02-18] MEDS: Insulin Glargine 300 UNITS/3 ML PEN 12 UNITS SC (07:40)
[2025-02-18] MEDS: Insulin Aspart 300 UNITS/3 ML PEN SC ×4 (07:41→22:14)
[2025-02-18 09:11] LABS: Abs Immature Grans 0.02 10^3/uL (0.0-0.06); HCT 27.8 % (40.0-50.0); HGB 9.3 g/dL (13.5-17.5); Immature Grans % 0.4 %; MCH 32.1 pg (27.0-33.0); MCHC 33.5 % (32.0-36.0); MCV 96 fL (80-95); MPV 13.7 fL (8.0-11.0); RBC 2.90 10^6/uL (4.36-5.78); RDW 15.3 % (11.8-14.1); RDW-SD 53.4 fL; WBC 4.89 10^3/uL (4.4-10.8)
[2025-02-18 09:46] LABS: Platelet Count 35 10^3/uL (130-400)
[2025-02-18 09:47] LABS: RBC Morphology Normal
[2025-02-18 10:02] LABS: ALT 20 U/L (16-63); AST 38 U/L (15-37); Albumin 2.5 g/dL (3.4-5.0); Alkaline Phosphatase 171 U/L (46-116); Anion Gap 10.0 mmol/L (3-11); Bilirubin, Total 1.2 mg/dL (0.2-1.0); CO2 30.0 mmol/L (21.0-32.0); Calcium 8.8 mg/dL (8.5-10.1); Chloride 93 mmol/L (98-107); Estimated GFR 16.21 (mL/min/1.73m2); Glucose 177 mg/dL (74-106); Magnesium 2.3 mg/dL (1.8-2.4); Potassium 3.6 mmol/L (3.5-5.1); Sodium 133 mmol/L (136-145); Total Protein 6.3 g/dL (6.4-8.2)
[2025-02-18 10:09] LABS: BUN 193 mg/dL (7-18)
[2025-02-18] MEDS: Bumetanide 1 MG/4 ML VIAL 2 MG IVP (12:58)
--- NOTE | 2025-02-18 13:03 | CMPROGNOTE_ITS ---
Date of service: 02/18/25 Time of Service: 13:52 Care Management Progress Note Progress Note Text Progress Note Text: Bucky in now in the ICU and continue to await transfer to a tertiary care facility. He was visiting with his son and at the time CM met with him. He engaged minimally in conversation today but shares he is in pain; RN aware. CM will continue to follow. Discharge Potential Discharge Needs: PCP F/U Appt Anticipated Barriers to Discharge: None Identified Patient/Family Education Needs: Review discharge instructions, discuss Ask Me Three Transportation: Private vehicle Plan: Anticipate Les will be transferred to a tertiary facility for a higher level of care. PT recommends New HH PT vs short-term SNF based on progress towards goals. It is recommended he follow up with his community providers, palliative care team, and discharge plan of care. He will likely be transported via EMS. CM will continue to follow. Social Determinants of Health Screening Social Determinants of health last assessed in clinic: 02/15/25 Will the Patient Participate in the Screening?: Declined to provide Do you worry about having a steady place to live?: no Problems where you live: no known problems In the past 12 months, have you had to go without electric, gas, oil or water in your home?: no Has lack of transportation kept you from medical appointments or from doing things needed for daily living?: no Has anyone in your life made you feel unsafe or unsupported?: no How hard is it for you to pay for the very basics like food, housing, medical care, and heating? Would you say it is:: Not hard at all Do you want help finding or keeping work or a job?: I do not need or want help If for any reason you need help with day-to-day activities such as bathing, preparing meals, shopping, managing finances, etc., do you get the help you need?: I don?t need any help How often do you feel lonely or isolated from those around you?: Never Do you speak a language other than Micronesian at home?: No Does the patient want assistance with any of the above?: No
[2025-02-18] MEDS: Midodrine 2.5 MG TAB PO ×2 (14:02→20:12)
[2025-02-18] MEDS: Acetaminophen 325 MG TAB 650 MG PO (14:03)
[2025-02-18 15:20] LABS: MRSA PCR Negative (Negative)
[2025-02-18] MEDS: oxyCODONE 5 MG TAB 2.5 MG PO (16:37)
--- NOTE | 2025-02-18 16:42 | W.PM.PROGNOT ---
Date of Service Date of service: 02/18/25 Time of Service: 08:00 Assessment and Plan Assessment and plan (1) Acute on chronic renal failure: Status: Acute Assessment and plan: Worsening renal failure likely secondary to diuretics Very little UO, 75 ml Feb 17 Hypotension with diuresis after small fluid boluses, transferred to ICU for pressors, none given Creatinine 3.9 this morning slightly improved after additional NS 500 bolus x2, will continue NS @ 50 today Restarted bumetanide at 2 mg IV BID Urine output 960 last 24 hours (as of 7 pm Feb 18) Cumulative fluid balance +[address] Viera, [facility] [place], they have accepted him for transfer for SaturdayFeb 19 (2) Hypokalemia: Status: Resolved Assessment and plan: - Potassium found to be 2.9, likely in the setting of overdiuresis with recent hospitalization for CHF exacerbation and worsening CKD - Status post 40 mEq p.o. potassium in the emergency department -Potassium 2.9 on the morning of 02/16/2025, gave 40 mEq IV - resolved on morning labs (3) Generalized weakness: Status: Acute Assessment and plan: - Thought to have potentially been due to CVA however CT angio and MRI negative - Likely due to a combination of autoimmune myopathy as well as hypokalemia and overdiuresis - Potassium replaced as noted above - Status post 500 mL bolus in emergency department - Appreciate PT consultation (4) HFrEF (heart failure with reduced ejection fraction): Status: Chronic Assessment and plan: - Currently without acute exacerbation - Upon reviewing patient's [facility] records he most recently had an ejection fraction of 26% with severe dilated left ventricle and in early December underwent complex PCI as he was found to have obstructive coronary artery disease but was not considered a candidate for bypass. - Working on fluid balance as noted above Feb 17: He continues to appear dry and hopefully will improve with fluid boluses tonight Feb 17: Urine output improved, no apparent fluid overload (5) Elevated troponin: Status: Resolved Assessment and plan: -Chronic, due to CKD and cardiomyopathy (6) Sleep apnea: Status: Chronic Assessment and plan: - History of CPAP intolerance (7) HTN (hypertension): Status: Chronic Assessment and plan: - Holding home antihypertensives due to hypotension (8) Autoimmune myopathy: Assessment and plan: - History of, receives IVIG therapy - Last IVIG was prior to his [facility] hospitalizations (9) Diabetes mellitus: Assessment and plan: - Continue home long-acting - Carb consistent diet, sliding scale insulin Subjective Subjective Interval history since last seen: Mr. Acevedo is uncomfortable due to pain in his right upper chest port and at the site of his perez. He reports that does not feel good, definitely felt better after leaving [facility] on Feb 11. He denies SOB, abdominal pain, N/V/D. He has poor appetite. Nosebleed has resolved. Exam Narrative Exam Narrative: General: This is a pleasant, chronically ill-appearing man in mild distress due to pain in his port and at the perez catheter HEENT: normocephalic, atraumatic CV: RRR. Right upper chest portacath Resp: CTAB Abd: soft, NTND MSK: voluntary motion x4 Neuro: awake and alert, CN II-XII intact, BUE/BLE weakness Objective Last Vital Signs Temp 36.4 C L 02/18/25 03:40 Pulse 78 02/18/25 10:46 Resp 15 02/18/25 10:46 BP 100/53 L 02/18/25 10:46 Pulse Ox 100 02/18/25 10:46 Laboratory Results - last 24 hr 02/17/25 02/18/25 02/18/25 17:27 08:40 12:57 WBC 4.89 RBC 2.90 L Hgb 9.3 L Hct 27.8 L MCV 96 H MCH 32.1 MCHC 33.5 RDW 15.3 H Plt Count 35 L MPV 13.7 H Immature Gran % 0.4 Neutrophils % 81.4 Lymphocytes % 3.9 Monocytes % 6.1 Eosinophils % 7.6 Basophils % 0.6 Nucleated RBC % 0.0 Absolute Neutrophils 3.98 Absolute Lymphocytes 0.19 L Absolute Monocytes 0.30 Absolute Eosinophils 0.37 Absolute Basophils 0.03 RBC Morphology Normal Sodium 133 L 133 L Potassium 4.0 3.6 Chloride 90 L 93 L Carbon Dioxide 33.1 H 30.0 Anion Gap 9.9 10.0 BUN 193 H* 193 H* Creatinine 4.1 H* 3.9 H* Est GFR (CKD-EPI 2020) 15.27 16.21 Glucose 185 H 177 H Calcium 8.9 8.8 Phosphorus 5.0 H Magnesium 2.5 H 2.3 Total Bilirubin 1.2 H AST 38 H ALT 20 Alkaline Phosphatase 171 H Total Protein 6.3 L Albumin 2.5 L MRSA (TEM-PCR) Negative Time Spent with Patient Time Spent with Patient: >50 minutes Time was spent: preparing to see the patient(eg.review tests), obtaining and/or reviewing separately otained hiistory, ordering medications,tests, procedures, referring, communicating with other health health care sanitary technician, indepentently interpreting results, counseling the patient and care coordination
--- NOTE | 2025-02-18 17:05 | DI.RAD_ITS ---
Exam(s) XR PORTABLE CHEST AP EXAM: XR PORTABLE CHEST AP CLINICAL HISTORY: query pleural effusion TECHNIQUE: 2D digital imaging was performed. AP portable COMPARISON: No exams were available for comparison FINDINGS: Exam is limited by poor pulmonary inflation. LUNGS: Clear. No pleural abnormality seen. HEART: Enlarged, unchanged. A port is noted with the tip in the right atrium. AORTA: Normal diameter. BONES: Unremarkable for age. Soft tissues: Unremarkable. IMPRESSION: Limited exam. No acute findings. DATA REPOSITORY: RADIATION DOSE DELIVERED:
[2025-02-18] MEDS: fentaNYL 100 MCG/2 ML VIAL 25 MCG IVP (18:55)
[2025-02-18] MEDS: Phenazopyridine 100 MG TAB PO (20:12)
[2025-02-18] MEDS: Normal Saline Flush 10 ML SYR IVP (21:13)
[2025-02-19] VITALS (9 sets, daily range): BP systolic 87–102; BP diastolic 44–58; PULSE 64–80; RESP 11–23; TEMP 36.5–36.8; O2SAT 96–100
[2025-02-19] MEDS: oxyCODONE 5 MG TAB 2.5 MG PO ×2 (03:20→11:30)
[2025-02-19] MEDS: Acetaminophen 325 MG TAB 650 MG PO (03:20)
[2025-02-19] MEDS: Normal Saline Flush 10 ML SYR IVP (05:10)
[2025-02-19 06:26] LABS: HCT 28.1 % (40.0-50.0); HGB 9.2 g/dL (13.5-17.5); MCH 31.1 pg (27.0-33.0); MCHC 32.7 % (32.0-36.0); MCV 95 fL (80-95); MPV 12.1 fL (8.0-11.0); RBC 2.96 10^6/uL (4.36-5.78); RDW 15.5 % (11.8-14.1); RDW-SD 53.6 fL; WBC 4.74 10^3/uL (4.4-10.8)
[2025-02-19 06:55] LABS: ALT 17 U/L (16-63); AST 38 U/L (15-37); Albumin 2.4 g/dL (3.4-5.0); Alkaline Phosphatase 156 U/L (46-116); Anion Gap 8.3 mmol/L (3-11); Bilirubin, Total 1.2 mg/dL (0.2-1.0); CO2 32.7 mmol/L (21.0-32.0); Calcium 9.0 mg/dL (8.5-10.1); Chloride 94 mmol/L (98-107); Estimated GFR 17.85 (mL/min/1.73m2); Glucose 105 mg/dL (74-106); Potassium 3.1 mmol/L (3.5-5.1); Sodium 135 mmol/L (136-145); Total Protein 6.2 g/dL (6.4-8.2)
[2025-02-19 06:58] LABS: BUN 194 mg/dL (7-18)
[2025-02-19 07:37] LABS: Platelet Count 39 10^3/uL (130-400)
[2025-02-19] MEDS: Phenazopyridine 100 MG TAB PO (07:57)
[2025-02-19] MEDS: Midodrine 2.5 MG TAB PO (07:57)
[2025-02-19] MEDS: Ezetimibe 10 MG TAB PO (07:57)
[2025-02-19] MEDS: Insulin Glargine 300 UNITS/3 ML PEN 12 UNITS SC (07:59)
[2025-02-19] MEDS: Normal Saline 1,000 ML 100 ML IV (09:56)
[2025-02-19] MEDS: Normal Saline 250 ML IV (09:57)
--- NOTE | 2025-02-19 10:27 | W.PM.DS.N ---
Date of service: 02/19/25 Time of Service: 10:00 DS: Diagnosis Discharge Diagnosis (1) Acute on chronic renal failure: Status: Resolved Asessment and Plan: Worsening renal failure likely secondary to diuretics Very little UO, 75 ml Feb 17 Hypotension with diuresis after small fluid boluses, transferred to ICU for pressors, none given Creatinine 3.9 this morning slightly improved after additional NS 500 bolus x2, will continue NS @ 50 today Restarted bumetanide at 2 mg IV BID Urine output 960 last 24 hours (as of 7 pm Feb 18) Cumulative fluid balance +[address] Viera, [facility] cardiology, they have accepted him for transfer for SaturdayFeb 19 (2) Hypokalemia: Status: Resolved Asessment and Plan: - Potassium found to be 2.9, likely in the setting of overdiuresis with recent hospitalization for CHF exacerbation and worsening CKD - Status post 40 mEq p.o. potassium in the emergency department -Potassium 2.9 on the morning of 02/16/2025, gave 40 mEq IV - resolved on morning labs (3) Generalized weakness: Status: Acute Asessment and Plan: - Thought to have potentially been due to CVA however CT angio and MRI negative - Likely due to a combination of autoimmune myopathy as well as hypokalemia and overdiuresis - Potassium replaced as noted above - Status post 500 mL bolus in emergency department - Appreciate PT consultation (4) HFrEF (heart failure with reduced ejection fraction): Status: Chronic Asessment and Plan: - Currently without acute exacerbation - Upon reviewing patient's [facility] records he most recently had an ejection fraction of 26% with severe dilated left ventricle and in early December underwent complex PCI as he was found to have obstructive coronary artery disease but was not considered a candidate for bypass. - Working on fluid balance as noted above Urine output improved with judicious fluid boluses, no apparent fluid overload (5) Elevated troponin: Status: Resolved Asessment and Plan: -Chronic, due to CKD and cardiomyopathy (6) Sleep apnea: Status: Chronic Asessment and Plan: - History of CPAP intolerance (7) HTN (hypertension): Asessment and Plan: - Holding home antihypertensives due to hypotension (8) Autoimmune myopathy: Asessment and Plan: - History of, receives IVIG therapy - Last IVIG was prior to his [facility] hospitalizations (9) Diabetes mellitus: Asessment and Plan: - Continue home long-acting - Carb consistent diet, sliding scale insulin Discharge Plan Disposition Patient Disposition: Transfer-Acute Inpatient Care Specific Acute Inpt Facility: [facility] Condition: Poor Discharge Details Reason For Visit: weakness, hypokalemia, CKD Admit Date/Time: 02/15/25 15:22 Admit Provider: Celso Costa Attending Provider: Celso Costa Primary Care Provider: Jazmine Baer V Hospital Course Hospital Course: Bucky Acevedo is a 64 year old man presenting February 15 with generalized weakness. He had been hospitalized at [facility] December 22 - February 02 and February 02 - February 11 for heart failure exacerbation, with challenging diuresis due to stage IV CKD, in the setting of chronic autoimmune myositis on intermodal customer service IVIG treatment. He had been discharged on 4 diuretics with close cardiology and nephrology followup. On presentation he was hypotensive 90's / 40's with thrombocytopenia PLT 53, hypokalemic 2.9, creatinine 3.3 against baseline around 2.3, BUN 180. Urine output on arrival was adequate. He was admitted for likely exacerbation of chronic heart failure, with concern for over-diuresis and dehydration. Home Meds and New Rx's Prescriptions: New polyethylene glycol 3350 17 gram Powder In Packet 17 g PO DAILY PRN PRN (Reason: Constipation) Qty: 0 0RF phenazopyridine 100 mg Tablet 100 mg PO Q12H Qty: 0 0RF midodrine 2.5 mg Tablet 2.5 mg PO TID Qty: 0 0RF Continued Aranesp (in polysorbate) 60 mcg/mL solution 60 mcg IV Q2W PRN Patient Comments: Through [facility] Outpatient Infusion Venofer 200 mg iron/10 mL solution 300 mg IV .12 weeks PRN Patient Comments: Through [facility] Outpatient Infusion Rx Instructions: administer over 30 mins [place] Saline Gel 1 applic topical QID PRN Rx Instructions: while awake levalbuterol tartrate [Xopenex HFA] 45 mcg/actuation HFA aerosol inhaler 2 inh inhalation Q6H Lyumjev KwikPen U-100 Insulin 100 unit/mL insulin pen 20 unit subcut QACLUNCH docusate sodium [Colace] 100 mg capsule 100 mg PO TID PRN GAMAGUARD IVIG See Rx Instructions .ROUTE .COMPLEX Patient Comments: Infusions now at [facility] Rx Instructions: Patient seen at [facility] for IVIG infusions 2x a month (DME) blood-glucose meter Kit See Rx Instructions .Route Rx Instructions: As directed colchicine 0.6 mg tablet 0.6 mg PO DIRECTED sodium chloride 0.9 % (flush) Syringe 10 ml IV QWEEK carvedilol 12.5 mg tablet 12.5 mg PO BID Qty: 180 3RF Rx Instructions: must administer with a meal/food multivitamin [Daily Multi-Vitamin] 1 EACH tablet 1 tab PO DAILY aspirin 81 mg Tablet,Delayed Release (Dr/Ec) 81 mg PO DAILY Qty: 100 0RF magnesium oxide 400 mg (241.3 mg magnesium) Tablet 400 mg PO BID Qty: 60 1RF nitroglycerin 0.4 mg tablet, sublingual 0.4 mg sublingual Q5-15M PRNQty: 30 0RF Rx Instructions: do not exceed 3 doses per episode allopurinol 100 mg tablet 200 mg PO DAILY Qty: 0 0RF insulin glargine [Lantus Solostar U-100 Insulin] 100 unit/mL (3 mL) insulin pen 12 unit subcut DAILY Qty: 0 0RF Patient Comments: 01/16/23 per PCP med record states Per [facility] 07/24/22 bumetanide 1 mg Tablet 2 mg PO DAILY Qty: 60 0RF ezetimibe 10 mg tablet 10 mg PO DAILY spironolactone 25 mg tablet 25 mg PO DAILY Discontinued losartan 50 mg tablet 50 mg PO DAILY Discharge Instructions Activity:: Activity as Tolerated Equipment/Supplies:: No Equipment Needed Diet:: Carb Counting Discharge Orders Discharge Orders: Discharge Order (Routine); Ordered 02/19/25 Ordered By: Federico Laurent Discharge Data Discharge Date/Time-TO BE ENTERED AT DEPARTURE: 02/19/25 13:30 DS: Summary Time Spent with Patient providing and/or coordinating discharge services: Greater than 30 minutes Status at Discharge Functional status at discharge: independent ambulation Overall status at discharge: patient is not back to baseline Mental Status: mental status grossly normal Speech and Movement: speech and movement normal Mood: congruent mood Affect: normal affect Quality:SDOH Health Related Social Needs: Health related social needs details had home health services last year,August. but patient discontinued the service, not satisfied.! Exam Psych Mental Status: mental status grossly normal Speech and Movement: speech and movement normal Mood: congruent mood Affect: normal affect DS: Data Vitals/I&O Vitals and I&O: Vital Signs Temperature 36.5 C 02/19/25 03:27 Temperature Source Temporal Artery Scan 02/19/25 03:27 Pulse 76 02/19/25 10:01 Pulse Rhythm Regular 02/15/25 17:21 Pulse 76 02/19/25 10:01 Respiratory Rate 23 02/19/25 10:01 Respiratory Effort Normal 02/15/25 17:21 Respiratory Depth Normal 02/15/25 17:21 Respiratory Pattern Normal 02/15/25 12:51 Blood Pressure 102/55 L 02/19/25 10:01 Blood Pressure Mean 70 02/19/25 10:01 Blood Pressure Position Supine 02/15/25 12:42 Pulse Oximetry 99 02/19/25 10:01 Oxygen Delivery Method Room Air 02/19/25 03:27 Oxygen Flow Rate 0 02/19/25 03:27 Pain Level 0 02/18/25 19:27 Comment Very hard to hear pt's bp, nurse got it 02/17/25 11:11 Intake & Output 02/18/25 02/18/25 02/19/25 11:59 23:59 11:59 Intake Total 200 / 880 680 / 880 350 / 350 Output Total 275 / 1325 800 / 1325 775 / 775 Balance -75 / -445 -120 / -445 -425 / -425 Weight 90 kg 95 kg Intake: Oral 200 / 880 680 / 880 350 / 350 Output: Urine 275 / 1325 800 / 1325 775 / 775 Other: Urine Color Yellow Yellow [place] Urine Appearance Clear Clear Clear Urine Odor None Normal Stool Size Small Stool Characteristics Soft Liquid Data Completed and Pending Labs on day of discharge: Labs from last 24 hours 02/19/25 02/18/25 02/18/25 05:30 12:57 12:55 WBC 4.74 RBC 2.96 L Hgb 9.2 L Hct 28.1 L MCV 95 MCH 31.1 MCHC 32.7 RDW 15.5 H Plt Count 39 L MPV 12.1 H Sodium 135 L Potassium 3.1 L Chloride 94 L Carbon Dioxide 32.7 H Anion Gap 8.3 BUN 194 H* Creatinine 3.6 H* Est GFR (CKD-EPI 2020) 17.85 Glucose 105 Calcium 9.0 Total Bilirubin 1.2 H AST 38 H ALT 17 Alkaline Phosphatase 156 H Total Protein 6.2 L Albumin 2.4 L MRSA (TEM-PCR) Negative TB Test Ag - Nil 1 Pending TB Test Ag - Nil 2 Pending TB Test (QFT) Interp Pending PFSH All Active Problems (Updated 02/25/25 @ 12:52 by Federico Laurnet MD) Elevated BUN (Acute) Prolonged QT interval (Acute) Generalized weakness (Acute) Ulcer of right lower extremity (Acute) Sacral decubitus ulcer (Acute) CKD (chronic kidney disease) stage 4, GFR 15-29 ml/min (Chronic) Pancytopenia, acquired (Chronic) Pleural effusion (Acute) Restrictive airway disease (Acute) Sleep apnea (Chronic) Ulcer of right foot limited to breakdown of skin (Acute) Hammertoe of right foot (Acute) Osteomyelitis (Acute) Mucocele of tonsil (Acute) Venous stasis ulcer of right ankle limited to breakdown of skin (Acute) Venous insufficiency (Acute) Acute kidney injury superimposed on chronic kidney disease (Acute) Vascular device, implant, or graft infection or inflammation (Acute) MRSA bacteremia (Acute) Surgical site infection (Acute) History of incision and drainage (Acute) Pleural effusion due to CHF (congestive heart failure) (Acute) Anemia due to stage 3 chronic kidney disease (Chronic) Adverse effect of statin (Acute) 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 Baseline is around 70,000 Lower extremity cellulitis (Acute) Renal insufficiency (Chronic) Impacted cerumen of both ears (Acute) Cirrhosis of liver (Chronic) Myopathy (Acute) Hearing deficit (Acute) Chronic anemia (Chronic) Per Dr. Melendez due to iron deficiency. Venofer 300mg every 3months. Cannot follow ferritin due to myopathy causing nonspecific inflammation. 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 Patient receives IVIG over 2 days every 4 weeks. Patient has never tolerated discontinuation Cellulitis Elevated troponin level not due myocardial infarction Bacteremia Acute on chronic renal insufficiency Subclavian vein thrombosis Barretts esophagus Hyperlipidemia Other pancytopenia History of shingles Nonalcoholic steatohepatitis History of deep vein thrombosis Anemia Hypomagnesemia Diabetic ulcer of right foot Acute non-ST segment elevation myocardial infarction Sepsis Vasculitis Obesity Basal cell carcinoma, face Duodenitis Pancytopenia Shingles DVT (deep venous thrombosis) Pulmonary embolism Gout NSTEMI (non-ST elevated myocardial infarction) Chronic kidney disease Cardiomyopathy 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 Sister Diabetes PATERNAL UNCLE Personal history of malignant neoplasm STOMACH Social History Smoking/Tobacco Use Status: Never Smoking risk assessment performed?: Yes Alcohol Intake: never Drug use: Never Substance use type: does not use Housing: house Do you feel safe at home: Yes Do you feel safe in your relationship?: Yes Time Spent with Patient Time Spent with Patient: 45-69 minutes Time was spent: preparing to see the patient(eg.review tests), obtaining and/or reviewing separately otained hiistory, ordering medications,tests, procedures, referring, communicating with other health skin care technician, indepentently interpreting results, counseling the patient and care coordination
[2025-02-19] MEDS: Insulin Aspart 300 UNITS/3 ML PEN SC (11:27)
--- NOTE | 2025-02-19 12:24 | PDOC.CMPRO ---
Date of service: 02/19/25 Time of Service: 12:25 Care Management Progress Note Progress Note Text Progress Note Text: Bucky was lying in bed when CM met with him. Per report, Bucky has been accept to [facility] and it is anticipate he will transfer there later today. CM will continue to follow. Discharge Potential Discharge Needs: PCP F/U Appt Anticipated Barriers to Discharge: None Identified Patient/Family Education Needs: Review discharge instructions, discuss Ask Me Three Transportation: EMS Plan: Anticipate Les will be transferred to [facility]. Transportation will be coordinated by [employer]. Once he is discharged, he may benefit from PT services. It is recommended he follow up with his community providers, palliative care team, and discharge plan of care. CM will continue to follow. Social Determinants of Health Screening Social Determinants of health last assessed in clinic: 02/15/25 Will the Patient Participate in the Screening?: Declined to provide Do you worry about having a steady place to live?: no Problems where you live: no known problems In the past 12 months, have you had to go without electric, gas, oil or water in your home?: no Has lack of transportation kept you from medical appointments or from doing things needed for daily living?: no Has anyone in your life made you feel unsafe or unsupported?: no How hard is it for you to pay for the very basics like food, housing, medical care, and heating? Would you say it is:: Not hard at all Do you want help finding or keeping work or a job?: I do not need or want help If for any reason you need help with day-to-day activities such as bathing, preparing meals, shopping, managing finances, etc., do you get the help you need?: I don?t need any help How often do you feel lonely or isolated from those around you?: Never Do you speak a language other than [place] at home?: No Does the patient want assistance with any of the above?: No
--- NOTE | 2025-02-19 14:17 | CMDISCH_ITS ---
Date of service: 02/19/25 Time of Service: 14:17 LACE Index Scoring Tool Questions: Length of Stay (in days): 4 - 6 Was the patient admitted via the E.D.?: Yes Comorbidities: Liver or Renal Disease E.D. Visits: 3 Answers: Total Score: 15 Risk of Readmission: High Risk Care Management Discharge Plan Reason for Hospitalization: weakness, hypokalemia,ckd Discharge Plan: Bucky was [place] [facility] [place] Transportation was arranged by pump house operator. Bucky was fully aware of this plan. Patient/Family Education Needs: review of discharge instruction, activity, limitations, and plan of care. Discuss ask me three [facility] Health Related Social Needs: Health related social needs details had home health se rvices last year,[facility]. but patient discontinued the service, not satisfied.!
--- NOTE | 2025-02-19 14:17 | PDOC.CMDIS ---
Date of service: 02/19/25 Time of Service: 14:17 LACE Index Scoring Tool Questions: Length of Stay (in days): 4 - 6 Was the patient admitted via the E.D.?: Yes Comorbidities: Liver or Renal Disease E.D. Visits: 3 Answers: Total Score: 15 Risk of Readmission: High Risk Care Management Discharge Plan Reason for Hospitalization: weakness, hypokalemia,ckd Discharge Plan: Bucky was discharged to [facility] today. Transportation was arranged by warehouse distribution associate. Bucky was fully aware of this plan. Patient/Family Education Needs: review of discharge instruction, activity, limitations, and plan of care. Discuss ask me three [facility] Health Related Social Needs: Health related social needs details had home health services last year,August. but patient discontinued the service, not satisfied.!
[2025-02-20 10:48] LABS: HBc IgM Ab, S Negative (Negative)
[2025-02-22 14:44] LABS: TB Interpretation Negative (Negative); TB1 Ag minus Nil 0.00 IU/mL; TB2 Ag minus Nil 0.00 IU/mL
== END 2025-02-19 13:30 | disposition short-term general hospital (02) | DRG 683 ==
LOC: ER 15:05 → MS 17:01 → ICU 02-17 17:58
PROVIDERS: Family Medicine; Admitting Provider Family Medicine; Emergency Provider Emergency Medicine; PCP Family Medicine; Responsible Provider Family Medicine; Visit Provider Family Medicine
DX: E87.6 Hypokalemia (principal); R53.1 Weakness; N18.4 Chronic kidney disease, stage 4 (severe); R74.8 Abnormal levels of other serum enzymes; G72.49 Other inflammatory and immune myopathies, not elsewhere classified; E11.42 Type 2 diabetes mellitus with diabetic polyneuropathy; N17.9 Acute kidney failure, unspecified; E11.22 Type 2 diabetes mellitus with diabetic chronic kidney disease; R26.2 Difficulty in walking, not elsewhere classified; I13.0 Hypertensive heart and chronic kidney disease with heart failure and stage 1 through stage 4 chronic kidney disease, or unspecified chronic kidney disease; I42.9 Cardiomyopathy, unspecified; I50.22 Chronic systolic (congestive) heart failure; I35.0 Nonrheumatic aortic (valve) stenosis; K75.81 Nonalcoholic steatohepatitis (NASH); K74.69 Other cirrhosis of liver; D69.6 Thrombocytopenia, unspecified; D50.9 Iron deficiency anemia, unspecified; J45.909 Unspecified asthma, uncomplicated; I87.8 Other specified disorders of veins; I95.9 Hypotension, unspecified; I25.10 Atherosclerotic heart disease of native coronary artery without angina pectoris; Z95.5 Presence of coronary angioplasty implant and graft; R04.0 Epistaxis; M10.9 Gout, unspecified; R53.82 Chronic fatigue, unspecified; T50.2X5A Adverse effect of carbonic-anhydrase inhibitors, benzothiadiazides and other diuretics, initial encounter; E78.5 Hyperlipidemia, unspecified; Z79.4 Long term (current) use of insulin; I25.2 Old myocardial infarction; Z86.718 Personal history of other venous thrombosis and embolism
CPT/HCPCS: 00123; 36415; 36416; 36591; 70496; 70498; 80048; 80053; 82550; 82962; 85027; 86850; 86900; 86901; 87641; 93005; 93308; 96360; 96372; 97162; 97530; 99285; 70551; 71045; 81003; 81015; 83735; 83880; 84100; 84439; 84443; 84484; 85025; 86140; 86480; 86705; 93010; 99223; 99232; 99233; 99239; J0881; J1815; J1939; J3010; J3480; P9047

== ENCOUNTER 2025-03-05 23:05 | Emergency (ER) | payer MEDICARE, SELFPAY ==
[2025-03-05] VITALS (7 sets, daily range): BP systolic 106–109; BP diastolic 59–61; PULSE 101–109; RESP 18–30; TEMP 37.1; O2SAT 92–99
--- NOTE | 2025-03-05 23:00 | RT.EKG_ITS ---
APPROVED REPORT Exam: Resting ECG Reason for Exam: chest pain Patient Location: E HR:110 bpm ECG Measurements Heart Rate 110 AXIS ND 166 P 98 QRSd 120 QRS -29 QT 366 T 152 QTc 494 Conclusion Sinus tachycardia...rate> 99 Ventricular trigeminy...trigeminy string>6 w/ V complexes Incomplete left bundle branch block...QRSd>110mS, terminal axis(-90,-1) LVH with secondary repolarization abnormality...multi-LVH criteria, abnrm ST-T Other than frequent PVCs there are no significant changes compared to prior EKG performed on 02/18/2025 at 00:03.
--- NOTE | 2025-03-05 23:15 | DI.CT_ITS ---
Exam(s) CT CHEST WO EXAM: CT CHEST WO CLINICAL HISTORY: fever, cough, weakness. TECHNIQUE: Imaging protocol: Axial computed tomography images were obtained and coronal and sagittal reformatted images were created and reviewed. COMPARISON: CT CT CHEST PE CTA from 06/20/[address] CHEST PE CTA from 07/16/[address] CHEST PE CTA from 01/02/2024 CR XR PORTABLE CHEST AP from 02/18/2025 FINDINGS: Tracheobronchial tree: Patent where visualized. Mediastinum and Tiffany: No dominant adenopathy or fluid collection. Pulmonary parenchyma: No consolidation or dominant measurable mass. Mild respiratory motion. Mild basilar atelectasis. Pleura: Bilateral pleural effusions, moderate right and small left. No pneumothorax. Heart: The heart is dilated. No pericardial effusion. Coronary artery calcifications are seen. Aorta: Thoracic aorta non-dilated. Upper abdomen: Cirrhotic appearing liver. Enlarged spleen. Varices noted near spleen. Low-density lesion in pancreas. Lymph nodes: Within normal limits. Bones:No fracture. No gross evidence of lytic or blastic lesions. Prominent flowing osteophytes are noted in the thoracic spine. Tubes, Catheters, and Lines: Port over right pectoral muscle. Soft tissues: Bilateral gynecomastia. Muscular atrophy. IMPRESSION: Moderate right small left pleural effusion. The heart is enlarged. Mild basilar atelectasis. Cirrhotic appearing liver and splenomegaly are again noted. New 2.5 cm low-density lesion in the body of the pancreas, suspicious for neoplasm. The preliminary [facility] report was reviewed. RADIATION DOSE DELIVERED: Total DLP Total DLP DATA REPOSITORY: All CT scans at this facility are submitted to the National Radiology Data Registry (NRDR) Dose Index Registry (DIR) with the [employer] (ACR). RADIATION OPTIMIZATION: All CT scans at this facility use at least one of these dose optimization techniques: automated exposure control; mA and/or kV adjustment per patient size (includes targeted exams where dose is matched to clinical indication); or iterative reconstruction.
--- NOTE | 2025-03-05 23:18 | W.ED.GENAD ---
Discharge Plan Disposition Patient Disposition: Transfer-Acute Inpatient Care Specific Acute Inpt Facility: [facility] Condition: Stable Discharge Details Clinical Impression: Fever, Sepsis, Dialysis patient Primary Care Provider: Jazmine Baer V ED Provider: Luiz Richey Bath Meds and New Rx's Prescriptions: No Action Aranesp (in polysorbate) 60 mcg/mL solution 60 mcg IV Q2W PRN Patient Comments: Through [facility] Outpatient Infusion iron sucrose [Venofer] 200 mg iron/10 mL solution 300 mg IV .12 weeks PRN Patient Comments: Through [facility] Outpatient Infusion Rx Instructions: administer over 30 mins levalbuterol tartrate [Xopenex HFA] 45 mcg/actuation HFA aerosol inhaler 2 inh inhalation Q6H Lyumjev KwikPen U-100 Insulin 100 unit/mL insulin pen 20 unit subcut QACLUNCH docusate sodium [Colace] 100 mg capsule 100 mg PO TID PRN GAMAGUARD IVIG See Rx Instructions .ROUTE .COMPLEX Patient Comments: Infusions now at [facility] Rx Instructions: Patient seen at [facility] for IVIG infusions 2x a month (DME) blood-glucose meter Kit See Rx Instructions .Route Rx Instructions: As directed carvedilol 12.5 mg tablet 12.5 mg PO BID Qty: 180 3RF Rx Instructions: must administer with a meal/food multivitamin [Daily Multi-Vitamin] 1 EACH tablet 1 tab PO DAILY aspirin 81 mg Tablet,Delayed Release (Dr/Ec) 81 mg PO DAILY Qty: 100 0RF nitroglycerin 0.4 mg tablet, sublingual 0.4 mg sublingual Q5-15M PRNQty: 30 0RF Rx Instructions: do not exceed 3 doses per episode insulin glargine [Lantus Solostar U-100 Insulin] 100 unit/mL (3 mL) insulin pen 12 unit subcut DAILY Qty: 0 0RF Patient Comments: 01/16/23 per PCP med record states Per [facility] 07/24/22 ezetimibe 10 mg tablet 10 mg PO DAILY spironolactone 25 mg tablet 25 mg PO DAILY benzonatate 200 mg capsule PO Patient Comments: TAKE 1 CAPSULE BY MOUTH THREE TIMES DAILY NEEDED FOR COUGH clopidogrel 75 mg tablet 75 mg DAILY ondansetron 4 mg tablet,disintegrating Patient Comments: PLACE 1 TABLET UNDER THE TONGUE TWICE A DAY NEEDED mirtazapine 7.5 mg tablet Patient Comments: TAKE 1 TABLET BY MOUTH NIGHTLY HPI General Mode of arrival: wheelchair. Date/Time Provider Initiated Documentation: 03/05/25 23:18. Limitations to Documentation: no limitations. Information obtained by: patient, family, RN notes reviewed and old records reviewed. HPI Narrative: Patient presents to ED from home after developing chills, weakness, fever at home, cough this afternoon. He was able to go to dialysis today and had a full run. Recently discharged from [facility] to home after having dialysis catheter placed for worsening kidney disease and inability to diurese. Patient states overall he has been feeling pretty good this week. On arrival still feels weak and has a cough but denies having chest pain, shortness of breath, abdominal pain. reports a fever of 102 at home. He is afebrile here. States cough is new but he is not experiencing chest pain or difficulty breathing. Related Data Home Medications ?Medication ?Instructions ?Recorded ?Confirmed Gamaguard Ivig See Rx Instructions .Route .COMPLEX 09/18/12 03/05/25 multivitamin (Daily Multi-Vitamin 1 tab PO DAILY 11/23/13 03/05/25 tablet) aspirin 81 mg tablet,delayed 81 mg PO DAILY #100 tabs 04/12/21 03/05/25 release nitroglycerin 0.4 mg sublingual 0.4 mg sublingual Q5-15M PRN #30 04/12/21 03/05/25 tablet tabs darbepoetin matt in polysorbat 60 60 mcg IV Q2W PRN 04/20/21 03/05/25 mcg/mL in polysorbate injection (Aranesp) blood-glucose meter 09/12/22 03/05/25 iron sucrose 200 mg iron/10 mL 300 mg IV .12 weeks PRN 01/15/23 03/05/25 intravenous solution (Venofer) insulin lispro-aabc 100 unit/mL 20 unit subcut QACLUNCH 11/07/23 03/05/25 subcutaneous pen (Lyumjev KwikPen U-100 Insulin) insulin glargine 100 unit/mL (3 12 unit (0.12 mL) subcut DAILY #0 01/09/24 03/05/25 mL) subcutaneous pen (Lantus mL Solostar U-100 Insulin) docusate sodium 100 mg capsule 100 mg PO TID PRN 01/29/24 03/05/25 (Colace) carvedilol 12.5 mg tablet 12.5 mg PO BID #180 tabs 07/24/24 03/05/25 levalbuterol tartrate 45 2 inh inhalation Q6H 10/22/24 03/05/25 mcg/actuation aerosol inhaler (Xopenex HFA) ezetimibe 10 mg tablet 10 mg PO DAILY 02/15/25 03/05/25 spironolactone 25 mg tablet 25 mg PO DAILY 02/15/25 03/05/25 benzonatate 200 mg capsule mg PO 03/05/25 clopidogrel 75 mg tablet 75 mg DAILY 03/05/25 mirtazapine 7.5 mg tablet mg 03/05/25 ondansetron 4 mg disintegrating mg 03/05/25 tablet Previous Rx's ?Medication ?Instructions ?Recorded aspirin 81 mg tablet,delayed 81 mg PO DAILY #100 tabs 04/12/21 release nitroglycerin 0.4 mg sublingual 0.4 mg sublingual Q5-15M PRN #30 04/12/21 tablet tabs insulin glargine 100 unit/mL (3 12 unit (0.12 mL) subcut DAILY #0 01/09/24 mL) subcutaneous pen (Lantus mL Solostar U-100 Insulin) carvedilol 12.5 mg tablet 12.5 mg PO BID #180 tabs 07/24/24 Allergies Allergy/AdvReac Type Severity Reaction Status Date / Time bacitracin (From Neosporin Allergy Mild Skin Rash Verified 03/05/25 23:15 ([id number])) neomycin (From Neosporin Allergy Mild Skin Rash Verified 03/05/25 23:15 ([id number])) polymyxin B (From Neosporin Allergy Mild Skin Rash Verified 03/05/25 23:15 ([id number])) methotrexate Allergy Skin Rash Verified 03/05/25 23:15 morphine Allergy Itching Verified 03/05/25 23:15 Fnzhlsl-CVT-BvX Reductase Allergy NECROTIZING Verified 02/15/25 12:49 Inhibitor (Ovfybui-Ryh-Jjs MYOPATHY Reductase Inhibitor) General Stated Complaint: Fever AURA: 2 Exam Narrative Exam Narrative: Const: WDWN male in NAD. VS per triage. HEENT: NC/AT. Normal facial exam. Neck: Supple. Trachea midline. Lungs: Normal respiratory effort. Lungs with a few scattered rhonchi. Cor: RRR with murmur. Good radial pulses. GI: Soft/ND/NT. Neuro: A+O x 3. Normal speech, mentation, gait. Cranial nerves II - XII grossly intact. No gross motor or sensory deficit. Ext: No C/C. BLE edema 1+ Course Vital Signs Vital signs: Vital Signs Temperature 98.8 F 03/05/25 23:07 Pulse 109 H 03/05/25 23:07 Respiratory Rate 26 H 03/05/25 23:07 Blood Pressure 106/61 03/05/25 23:07 Pulse Oximetry 99 03/05/25 23:07 Temperature 98.8 F 03/05/25 23:14 Temperature Source Oral 03/05/25 23:14 Pulse 106 H 03/05/25 23:14 Respiratory Rate 20 03/05/25 23:14 Blood Pressure 106/61 03/05/25 23:14 Blood Pressure Position Supine 03/05/25 23:14 Pulse Oximetry 99 03/05/25 23:14 Oxygen Delivery Method Room Air 03/05/25 23:14 Oxygen Flow Rate 0 03/05/25 23:07 Pain Level 0 03/05/25 23:14 Medical Decision Making Patient presenting to ED after developing chills, fever, weakness, cough after dialysis this afternoon. Patient recently discharged from [facility] after having a dialysis catheter placed to help with fluid overload and diuresis. Had previously had stenting over the summer and has an EF somewhere around 25 to 30%. His chronic kidney disease made it very difficult to manage his fluids. Ultimately admitted here in early February and transferred to [facility] where he ended up being started on dialysis. He is not febrile here. His initial vital signs were reassuring. Will place IV and obtain labs and blood culture. Fluvid swab, CT of the chest without contrast, urinalysis all ordered. Given initial stable vitals we will hold off on IV fluid. His EKG obtained on arrival is sinus rhythm with PVCs, incomplete left bundle branch block and no significant change compared to previous EKG done on February 18, 2025. Patient's white count is normal at 7.6 with a normal differential. Hemoglobin 9.8 which is about his baseline. Platelets are at 88. His lactic acid is 3.6. He is venous pH is 7.48 with a pCO2 of 50 and a bicarb of 37. Chemistry showed creatinine 1.7. Potassium 3.4. Sodium 136. Liver functions are elevated and previously had been mostly normal. His bilirubin is 1.9 which is a little higher than his baseline which seems to be 1.6-1.7. However his AST and ALT bumped to 89 and 74 previously normal when here last. His Fluvid swab is negative. His CT chest shows no evidence of pneumonia. He has bilateral pleural effusions right greater than left described as moderate and small and have been there previously. Bladder scan showed only 16 mL so we have held off cathing for the time being. On reexamination he does seem to have some right upper quadrant tenderness laterally, not necessarily over McBurney's point. Given lack of a definitive source for his fever we will plan CT of the abdomen pelvis with contrast. He did transiently drop his blood pressure systolically into the 80s. He is ordered for 500 mL bolus of saline. Patient responded to fluid bolus. Now has about 30 mL on bladder scan. CT of the abdomen pelvis being read by radiology as cholelithiasis with distended gallbladder but no evidence of acute cholecystitis. I have placed a call to [facility] to discuss transfer. He has had another transient drop in blood pressure into the 80s and a second 500 mL bolus of saline has been ordered. Patient's IV infiltrated. This have been placed by nursing using ultrasound. He is typically a hard peripheral IV start. He does have a port which [facility] had been using on his last admission. We will access this, obtain a culture and begin using his port. The site itself looks fine and there is no tenderness over it. I have received a callback from [facility] and they are at capacity and cannot take the patient. [facility] is also at capacity and cannot take the patient. Will continue reaching out to dialysis capable hospitals. Patient has been accepted to [facility] in [place]. Patient to be transferred with rayon tester, ALS unit. A repeat lactic acid is now normal at 1.2. Blood pressure has been stable over the last 1 to 2 hours. Patient is accepted to [facility] by Dr. Salmon in the ED. Patient and aware of need for transfer and reasons why including the fact that close the facilities are at capacity and unable to take him. Medical Records Medical records reviewed: Yes I reviewed the patient's medical records. Medical records narrative: IP admissions from here Lab Data Lab results reviewed: Yes I reviewed the patient's lab results. Lab results narrative: see MDM ECG Data Attestation: I personally reviewed and interpreted this ECG (s) as follows: Prior ECG tracings: available for review Interpretation: see MDM/EKG Quality:SDOH Health Related Social Needs: Health related social needs details had home health services last year,August. but patient discontinued the service, not satisfied.! Critical Care Time Critical Care Time Critical Care Time: Yes Total Critical Care Time: 60 Attestation: Upon my evaluation, this patient had a high probability of imminent or life-threatening deterioration, which required my direct attention, intervention, and personal management. I have personally provided 60 minutes of critical care time exclusive of time spent on separately billable procedures. Time includes monitoring for potential decompensation, ordering of tests and medications, review of laboratory and radiology results, discussion with consultants and documentation . Interventions were performed as documented above in procedures. [facility] All Active Problems (Updated 03/06/25 @ 06:00 by Luiz Richey MD) Dialysis patient (Acute) Sepsis (Acute) Fever (Acute) Elevated BUN (Acute) Prolonged QT interval (Acute) Generalized weakness (Acute) Ulcer of right lower extremity (Acute) Sacral decubitus ulcer (Acute) CKD (chronic kidney disease) stage 4, GFR 15-29 ml/min (Chronic) Pancytopenia, acquired (Chronic) Pleural effusion (Acute) Restrictive airway disease (Acute) Sleep apnea (Chronic) Ulcer of right foot limited to breakdown of skin (Acute) Hammertoe of right foot (Acute) Osteomyelitis (Acute) Mucocele of tonsil (Acute) Venous stasis ulcer of right ankle limited to breakdown of skin (Acute) Venous insufficiency (Acute) Acute kidney injury superimposed on chronic kidney disease (Acute) Vascular device, implant, or graft infection or inflammation (Acute) MRSA bacteremia (Acute) Surgical site infection (Acute) History of incision and drainage (Acute) Pleural effusion due to CHF (congestive heart failure) (Acute) Anemia due to stage 3 chronic kidney disease (Chronic) Adverse effect of statin (Acute) 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 Baseline is around 70,000 Lower extremity cellulitis (Acute) Renal insufficiency (Chronic) Impacted cerumen of both ears (Acute) Cirrhosis of liver (Chronic) Myopathy (Acute) Hearing deficit (Acute) Chronic anemia (Chronic) Per Dr. Melendez due to iron deficiency. Venofer 300mg every 3months. Cannot follow ferritin due to myopathy causing nonspecific inflammation. 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 Patient receives IVIG over 2 days every 4 weeks. Patient has never tolerated discontinuation Cellulitis Elevated troponin level not due myocardial infarction Bacteremia Acute on chronic renal insufficiency Subclavian vein thrombosis Barretts esophagus Hyperlipidemia Other pancytopenia History of shingles Nonalcoholic steatohepatitis History of deep vein thrombosis Anemia Hypomagnesemia Diabetic ulcer of right foot Acute non-ST segment elevation myocardial infarction Sepsis Vasculitis Obesity Basal cell carcinoma, face Duodenitis Pancytopenia Shingles DVT (deep venous thrombosis) Pulmonary embolism Gout NSTEMI (non-ST elevated myocardial infarction) Chronic kidney disease Cardiomyopathy 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 Sister Diabetes PATERNAL UNCLE Personal history of malignant neoplasm STOMACH Social History Smoking/Tobacco Use Status: Never Smoking risk assessment performed?: Yes Alcohol Intake: never Drug use: Never Substance use type: does not use Housing: house Do you feel safe at home: Yes Do you feel safe in your relationship?: Yes
[2025-03-05 23:32] LABS: BE (Venous) 13 mmol/L (-2-3); HCO3 (Venous) 37 mmol/L (23-28); O2 Sat (Venous) 52 %; TCO2 (Venous) 34 mmol/L (24-29); pCO2 (Venous) 50 mmHg (41-51); pO2 (Venous) 27 mmHg
[2025-03-05 23:34] LABS: Abs Immature Grans 0.02 10^3/uL (0.0-0.06); HCT 31.4 % (40.0-50.0); HGB 9.8 g/dL (13.5-17.5); Immature Grans % 0.3 %; MCH 31.4 pg (27.0-33.0); MCHC 31.2 % (32.0-36.0); MCV 101 fL (80-95); MPV 11.1 fL (8.0-11.0); RBC 3.12 10^6/uL (4.36-5.78); RDW 16.8 % (11.8-14.1); RDW-SD 61.2 fL; WBC 7.62 10^3/uL (4.4-10.8)
[2025-03-05 23:40] LABS: Platelet Count 88 10^3/uL (130-400)
[2025-03-05 23:50] LABS: ALT 74 U/L (16-63); AST 89 U/L (15-37); Albumin 2.3 g/dL (3.4-5.0); Alkaline Phosphatase 590 U/L (46-116); Anion Gap 4.4 mmol/L (3-11); BUN 19 mg/dL (7-18); Bilirubin, Total 1.9 mg/dL (0.2-1.0); CO2 38.6 mmol/L (21.0-32.0); Calcium 8.2 mg/dL (8.5-10.1); Chloride 93 mmol/L (98-107); Estimated GFR 43.91 (mL/min/1.73m2); Glucose 175 mg/dL (74-106); Lipase 173 U/L (<78); Magnesium 1.8 mg/dL (1.8-2.4); Potassium 3.4 mmol/L (3.5-5.1); Sodium 136 mmol/L (136-145); Total Protein 8.4 g/dL (6.4-8.2)
[2025-03-06] VITALS (193 sets, daily range): BP systolic 78–127; BP diastolic 31–99; PULSE 74–113; RESP 0–38; TEMP 36.8; O2SAT 83–100
[2025-03-06 00:19] LABS: COVID-19 PCR Negative (Negative); RSV PCR Negative (Negative)
--- NOTE | 2025-03-06 01:00 | DI.CT_ITS ---
Exam(s) CT ABDOMEN PELVIS W EXAM: CT ABDOMEN PELVIS W CLINICAL HISTORY: sepsis, no clear source. TECHNIQUE: Imaging Protocol: Axial computed tomography images with coronal and sagittal reformatted images were created and reviewed CONTRAST MATERIAL: Intravenous: Omnipaque 350 Contrast volume:100 ml Oral: no COMPARISON: CR XR LUMBAR SPINE COMPLETE from 06/16/2020 CR XR DEXA BONE DENSITY W/WO MAJO from 05/22/[address] CHEST PE CTA from 01/02/2024 MR MR LUMBAR SPINE WO/W from 01/16/2024 MR MR LUMBAR SPINE WO/W from 02/12/[address] CHEST WO from 03/05/2025 FINDINGS: ABDOMEN and PELVIS: Lung Bases: Moderate right and small left pleural effusion. Similar basilar atelectasis, left greater than right. There is some respiratory motion at this level. Liver: Cirrhotic appearance. No suspicious mass. Gallbladder and biliary tract: Cholelithiasis. No wall thickening or pericholecystic fluid. No biliary dilation. Pancreas: Normal density. No abnormal calcifications or inflammatory process. 3 x 2.8 centimeter cystic lesion at the body of the pancreas. No visible septation or mural nodularity. Spleen: Enlarged. Adjacent varices. Kidneys: Normal size, contour and axis. No radiodense stones. No obstructive uropathy. Simple cysts. No suspicious masses seen. Adrenal glands: No masses seen. Vasculature: Abdominal aorta non-dilated. Varices noted. Soft tissues: Large Umbilical hernia containing fat and multiple umbilical varices. Bladder: No gross wall thickening. No calculi.No focal mass. Bowel: No obstruction. No bowel wall thickening. Appendix normal. Diverticulosis. No evidence of diverticulitis. Normal quantity of stool. Peritoneal cavity: No ascites. No focal collection. No mesenteric inflammatory response. No free air. Bones: Defects at the superior endplate of L4, inferior endplate of L3 and superior endplate of S1 are again noted. The findings are greatest at the superior endplate of L4 where there was previous osteomyelitis. No paraspinal abscess or abnormal soft tissue density. Reproductive organs: Unremarkable. Lymph nodes: No pathologically enlarged lymph nodes. IMPRESSION:: Stable appearance of bilateral pleural effusions, right greater than left. Stable appearance of left lower lobe atelectasis. Superimposed pneumonia is not entirely excluded. 3 centimeter cystic lesion of the pancreas. Findings are suspicious for a cystic pancreatic neoplasm as it appears to be new from prior chest CTs. Cirrhotic liver, splenomegaly and abdominal the wall hernia with varices. Roughly stable appearance of the lumbar spine. Patient had previous episode osteomyelitis. No gross evidence of new findings or paraspinal abscess or soft tissue swelling. The preliminary [facility] report was reviewed. RADIATION DOSE DELIVERED: Total DLP DATA REPOSITORY: All CT scans at this facility are submitted to the National Radiology Data Registry (NRDR) Dose Index Registry (DIR) with the [employer] (ACR). RADIATION OPTIMIZATION: All CT scans at this facility use at least one of these dose optimization techniques: automated exposure control; mA and/or kV adjustment per patient size (includes targeted exams where dose is matched to clinical indication); or iterative reconstruction.
--- NOTE | 2025-03-06 01:09 | DI.[facility]_ITS ---
PROCEDURE INFORMATION: Exam: CT Chest Without Contrast; Diagnostic Exam date and time: 03/05/2025 11:45 PM Age: 64 years old Clinical indication: Other: Fever, cough, weakness, dialysis PT w previous effusions done today TECHNIQUE: Imaging protocol: Diagnostic computed tomography of the chest without contrast. 3D rendering (Not supervised by radiologist): MIP and/or 3D reconstructed images were created by the technologist. COMPARISON: CT CHEST PE CTA 01/02/2024 9:34 PM FINDINGS: Tubes, catheters and devices: Right chest wall port. Lungs: Lungs are clear aside from mild atelectasis. Pleural spaces: Moderate volume right pleural effusion. Small volume left pleural effusion. Heart: Cardiomegaly. Lymph nodes: Unremarkable. No enlarged lymph nodes. Vasculature: Unremarkable. No aortic aneurysm. Liver: Hepatic cirrhosis. Gallbladder and biliary ducts: Gallbladder is incompletely visualized. There is cholelithiasis. Pancreas: Indeterminate 2.7 cm round intermediate density mass lesion or cyst of the body of the pancreas. Spleen: Splenomegaly. Bones/joints: Unremarkable. No acute fracture. Soft tissues: Gynecomastia. IMPRESSION: 1. Hepatic cirrhosis with splenomegaly. 2. Indeterminate 2.7 cm round intermediate density mass lesion or cyst of the body of the pancreas. 3. Moderate volume right pleural effusion. Small volume left pleural effusion. Dictated and Authenticated by: Marino Morrison MD. Orderin Kaiden Dee MD
[2025-03-06] MEDS: PIPERACILLIN/TAZO 2.25 GM in Normal Saline 50 ML IVPB (01:37)
[2025-03-06] MEDS: Normal Saline 500 ML IV ×3 (01:37→10:24)
[2025-03-06] MEDS: Omnipaque 350 MG/ML 100 ML BTL IJ (02:38)
[2025-03-06] MEDS: Normal Saline - Diluent 50 ML VIAL IJ (02:38)
--- NOTE | 2025-03-06 02:45 | DI.VRAD_ITS ---
PROCEDURE INFORMATION: Exam: CT Abdomen And Pelvis With Contrast Exam date and time: 03/06/2025 2:11 AM Age: 64 years old Clinical indication: Other: Sepsis, no clear source TECHNIQUE: Imaging protocol: Computed tomography of the abdomen and pelvis with contrast. Contrast material: 350; Contrast volume: 100 ml; Contrast route: INTRAVENOUS (IV); COMPARISON: MR PELVIS WO/W 01/06/2024 11:36 AM FINDINGS: Pleural spaces: Moderate right pleural effusion. Small left pleural effusion. Heart: Cardiomegaly. Liver: Hepatic cirrhosis. Gallbladder and biliary ducts: Cholelithiasis. Gallbladder is distended but there is no wall thickening or pericholecystic inflammation to indicate acute cholecystitis. No biliary ductal dilatation. Pancreas: 2.6 cm cyst/cystic lesion of the body of the pancreas, indeterminate. Spleen: Splenomegaly. Adrenal glands: Normal. No mass. Kidneys and ureters: Incidental renal cysts. No obstructive uropathy. Stomach and bowel: No pneumatosis or portal/mesenteric venous gas. No bowel wall thickening or intestinal obstruction. Appendix: Normal appendix. Intraperitoneal space: No pneumoperitoneum or abscess. Vasculature: See Stomach and bowel finding. Lymph nodes: Unremarkable. Urinary bladder: Unremarkable as visualized. Reproductive: Unremarkable as visualized. Bones/joints: Unremarkable. No acute fracture. Soft tissues: Anterior abdominal wall varices including a cluster of umbilical varices with associated fat containing umbilical/supraumbilical hernia. IMPRESSION: 1. Hepatic cirrhosis with splenomegaly and abdominal wall/umbilical varices. 2. Moderate right pleural effusion. Small left pleural effusion. 3. 2.6 cm cyst/cystic lesion of the body of the pancreas, indeterminate. Dictated and Authenticated by: Marino Morrison MD. Orderin Kaiden Dee MD
[2025-03-06] MEDS: ACETAMINOPHEN 1,000 MG/100 ML BAG 400 MG IVPB (06:21)
--- NOTE | 2025-03-06 07:39 | NUR.NOTE ---
Nursing Note: Overnight pt was not voiding. Bladder scanned multiple times for minimal amounts. Each time MD Richey updated and aware. See data flowsheet for details. D/t lack of voids and need for UA in setting concerning for sepsis requiring source identification this RN encouraged x1 I&O cath to empty bladder and obtain UA sample. Pt adamantly refused. Had negative experiences w/ urinary catheters during prior hospitalization. Now feels like I would rather than have another one of those things shoved up there.' This RN provided education and reassurance about intermittent cath to pt and , also offered options for lidocaine jelly to help w/ catheterization discomfort. also encouraging pt to consent to cath. Pt continually refusing. Attempted standing at bedside w/ x2 RN assist and walker to void instead. No success. MD Richey updated and aware.
[2025-03-06] MEDS: Normal Saline-STERILE FIELD 0.9% 10 ML SYR (07:55)
[2025-03-06] MEDS: Water,Injection,Sterile 10 ML VIAL (07:55)
--- NOTE | 2025-03-06 09:10 | NUR.NOTE ---
Looking for a transport team without any success. Transfer delayed secondary to this.
--- NOTE | 2025-03-06 13:04 | NUR.NOTE ---
Blood cultures prelim anerobic and anerobic bottle positive; gram stain shows gram positive cocci in chains. Dr. Foster aware and faxed to [facility]. Nursing Note:
--- NOTE | 2025-03-08 09:04 | NUR.NOTE ---
Called [facility] to obtain fax number for Pt. Pt is on the 3rd floor Surgical wing. I will fax the Specimen Report to that unit. Fax #:[phone]
== END 2025-03-06 11:58 | disposition short-term general hospital (02) ==
PROVIDERS: Emergency Medicine; Emergency Provider Emergency Medicine; PCP Family Medicine
DX: J90 Pleural effusion, not elsewhere classified (principal); A41.9 Sepsis, unspecified organism; R10.811 Right upper quadrant abdominal tenderness; N18.4 Chronic kidney disease, stage 4 (severe); R50.9 Fever, unspecified; Z99.2 Dependence on renal dialysis; R53.1 Weakness
CPT/HCPCS: 36415; 36416; 51798; 71250; 80053; 82805; 82962; 83690; 87040; 87077; 87637; 93005; 96365; 96366; 96367; 99291; 74177; 83605; 83735; 85025; 87186; 93010; J0131; J2543; J3373; J3490

== ENCOUNTER 2025-03-30 12:33 | Outpatient (REF) | payer MEDICARE, SELFPAY | END 2025-03-30 12:34 | disposition home or self-care (01) | LOC: NCHCN 12:33 | PROVIDERS: PCP Family Medicine; Visit Provider Family Medicine | DX: I83.009 Varicose veins of unspecified lower extremity with ulcer of unspecified site (principal); L97.909 Non-pressure chronic ulcer of unspecified part of unspecified lower leg with unspecified severity | CPT/HCPCS: 87070; 87205 ==

== ENCOUNTER 2025-04-01 00:17 | Outpatient (RCR) | payer MEDICARE, SELFPAY ==
[2025-03-30] MEDS: IMMUNE GLOBULIN 10 GM/100 ML BTL IVPB (12:32)
[2025-03-30] MEDS: Normal Saline Flush 10 ML SYR IVP (12:33)
[2025-03-30 12:40] VITALS: BP 107/70; PULSE 94; RESP 20; TEMP 36.6; O2SAT 100
[2025-03-30 12:41] LABS: Abs Immature Grans 0.01 10^3/uL (0.0-0.06); HCT 32.0 % (40.0-50.0); HGB 10.2 g/dL (13.5-17.5); Immature Grans % 0.2 %; MCH 32.9 pg (27.0-33.0); MCHC 31.9 % (32.0-36.0); MCV 103 fL (80-95); MPV 11.4 fL (8.0-11.0); RBC 3.10 10^6/uL (4.36-5.78); RDW 17.2 % (11.8-14.1); RDW-SD 66.1 fL; WBC 5.00 10^3/uL (4.4-10.8)
[2025-03-30 12:55] VITALS: BP 84/55; PULSE 94; RESP 19; TEMP 36.4; O2SAT 99
[2025-03-30 12:55] LABS: Platelet Count 68 10^3/uL (130-400); RBC Morphology Normal
[2025-03-30 13:06] LABS: ALT 51 U/L (16-63); AST 61 U/L (15-37); Albumin 2.5 g/dL (3.4-5.0); Alkaline Phosphatase 393 U/L (46-116); Anion Gap 6.2 mmol/L (3-11); BUN 31 mg/dL (7-18); Bilirubin, Total 0.9 mg/dL (0.2-1.0); CO2 31.8 mmol/L (21.0-32.0); Calcium 8.5 mg/dL (8.5-10.1); Chloride 98 mmol/L (98-107); Creatine Kinase 16 U/L (39-308); Glucose 213 mg/dL (74-106); Potassium 3.9 mmol/L (3.5-5.1); Sodium 136 mmol/L (136-145); Total Protein 7.1 g/dL (6.4-8.2)
[2025-03-30 13:10] VITALS: BP 82/53; PULSE 96; RESP 19; TEMP 36; O2SAT 100
[2025-03-30] MEDS: IMMUNE GLOBULIN 40 GM/400 ML BTL IVPB ×2 (13:25→14:51)
[2025-03-30 13:40] VITALS: BP 87/55; PULSE 93; RESP 18; TEMP 36.4; O2SAT 100
[2025-03-30 14:10] VITALS: BP 107/74; PULSE 94; RESP 18; TEMP 36.5; O2SAT 100
[2025-03-30 14:40] VITALS: BP 94/67; PULSE 87; RESP 18; TEMP 36.5; O2SAT 100
[2025-04-01] VITALS (7 sets, daily range): BP systolic 81–113; BP diastolic 51–72; PULSE 85–92; RESP 17–19; TEMP 36.2–36.5; O2SAT 97–100
[2025-04-01] MEDS: IMMUNE GLOBULIN 10 GM/100 ML BTL IVPB (07:31)
[2025-04-01] MEDS: Normal Saline Flush 10 ML SYR IVP (07:31)
[2025-04-01] MEDS: IMMUNE GLOBULIN 40 GM/400 ML BTL IVPB ×2 (08:20→09:46)
== END 2025-04-09 23:59 | disposition home or self-care (01) ==
LOC: INF 00:17
PROVIDERS: Internal Medicine; PCP Family Medicine; Visit Provider Nurse Practitioner Acute Care
DX: G72.49 Other inflammatory and immune myopathies, not elsewhere classified (principal); D50.9 Iron deficiency anemia, unspecified; N18.9 Chronic kidney disease, unspecified
CPT/HCPCS: 36591; 80053; 82550; 96365; 96366; 96523; 85025; J1459

== ENCOUNTER 2025-04-29 00:46 | Outpatient (RCR) | payer MEDICARE, SELFPAY ==
[2025-04-27] VITALS (9 sets, daily range): BP systolic 79–117; BP diastolic 45–77; PULSE 72–108; RESP 18–22; TEMP 35.8–36; O2SAT 99–100
[2025-04-27 08:06] LABS: Abs Immature Grans 0.02 10^3/uL (0.0-0.06); HCT 29.6 % (40.0-50.0); HGB 9.4 g/dL (13.5-17.5); Immature Grans % 0.4 %; MCH 31.8 pg (27.0-33.0); MCHC 31.8 % (32.0-36.0); MCV 100 fL (80-95); MPV 11.4 fL (8.0-11.0); RBC 2.96 10^6/uL (4.36-5.78); RDW 14.8 % (11.8-14.1); RDW-SD 54.5 fL; WBC 4.65 10^3/uL (4.4-10.8)
[2025-04-27] MEDS: Immune Globulin-Privigen 5 GM/50 ML BTL IVPB (08:17)
[2025-04-27 08:18] LABS: Platelet Count 62 10^3/uL (130-400); RBC Morphology Normal
[2025-04-27] MEDS: Normal Saline Flush 10 ML SYR IVP (08:21)
[2025-04-27 08:33] LABS: ALT 23 U/L (10-49); AST 51 U/L (<34); Albumin 3.0 g/dL (3.4-5.0); Alkaline Phosphatase 217 U/L (46-116); Anion Gap 9.9 mmol/L (3-11); BUN 59 mg/dL (9-23); Bilirubin, Total 0.70 mg/dL (0.2-1.2); CO2 29.7 mmol/L (20.0-31.0); Calcium 8.6 mg/dL (8.3-10.6); Chloride 94 mmol/L (98-107); Creatine Kinase 26 U/L (46-171); Glucose 249 mg/dL (74-106); Potassium 4.5 mmol/L (3.5-5.1); Sodium 134 mmol/L (136-145); Total Protein 6.5 g/dL (5.7-8.2)
[2025-04-27] MEDS: Immune Globulin-Privigen 10 GM/100 ML BTL IVPB (09:00)
[2025-04-27] MEDS: Immune Globulin-Privigen 40 GM/400 ML BTL IVPB ×2 (09:45→11:01)
[2025-04-29 07:37] VITALS: BP 107/75; PULSE 80; RESP 18; TEMP 36.3; O2SAT 100
[2025-04-29] MEDS: Normal Saline Flush 10 ML SYR IVP (07:45)
[2025-04-29] MEDS: Immune Globulin-Privigen 10 GM/100 ML BTL IVPB (07:45)
[2025-04-29 08:06] VITALS: BP 101/69; PULSE 79; RESP 18; TEMP 36.3; O2SAT 100
[2025-04-29 08:20] VITALS: BP 107/66; PULSE 85; RESP 18; TEMP 36.2; O2SAT 100
[2025-04-29 08:35] VITALS: BP 110/72; PULSE 78; RESP 18; TEMP 36.3; O2SAT 100
[2025-04-29] MEDS: Immune Globulin-Privigen 40 GM/400 ML BTL IVPB ×2 (08:42→10:09)
[2025-04-29 09:05] VITALS: BP 109/72; PULSE 76; RESP 18; TEMP 36.4; O2SAT 100
== END 2025-05-09 23:59 | disposition home or self-care (01) ==
LOC: INF 00:46
PROVIDERS: Internal Medicine; PCP Family Medicine; Visit Provider Nurse Practitioner Acute Care
DX: G72.49 Other inflammatory and immune myopathies, not elsewhere classified (principal); D50.9 Iron deficiency anemia, unspecified; Z45.2 Encounter for adjustment and management of vascular access device
CPT/HCPCS: 36591; 80053; 82550; 96365; 96366; 96523; 85025; J1459

== ENCOUNTER 2025-05-27 00:44 | Outpatient (RCR) | payer MEDICARE, SELFPAY ==
[2025-05-12] MEDS: Normal Saline Flush 10 ML SYR IVP (07:15)
[2025-05-12 08:08] LABS: Abs Immature Grans 0.02 10^3/uL (0.0-0.06); HCT 30.2 % (40.0-50.0); HGB 9.5 g/dL (13.5-17.5); Immature Grans % 0.4 %; MCH 30.5 pg (27.0-33.0); MCHC 31.5 % (32.0-36.0); MCV 97 fL (80-95); MPV 11.8 fL (8.0-11.0); RBC 3.11 10^6/uL (4.36-5.78); RDW 14.2 % (11.8-14.1); RDW-SD 50.4 fL; WBC 4.89 10^3/uL (4.4-10.8)
[2025-05-12 08:41] LABS: Platelet Count 69 10^3/uL (130-400)
[2025-05-25] VITALS (9 sets, daily range): BP systolic 78–107; BP diastolic 43–70; PULSE 80–92; RESP 16; TEMP 36.5–36.9; O2SAT 99–100
[2025-05-25] MEDS: Immune Globulin-Privigen 10 GM/100 ML BTL IVPB (08:07)
[2025-05-25 08:45] LABS: Abs Immature Grans 0.01 10^3/uL (0.0-0.06); HCT 33.7 % (40.0-50.0); HGB 10.7 g/dL (13.5-17.5); Immature Grans % 0.2 %; MCH 31.5 pg (27.0-33.0); MCHC 31.8 % (32.0-36.0); MCV 99 fL (80-95); MPV 11.3 fL (8.0-11.0); RBC 3.40 10^6/uL (4.36-5.78); RDW 15.9 % (11.8-14.1); RDW-SD 57.1 fL; WBC 4.92 10^3/uL (4.4-10.8)
[2025-05-25 09:00] LABS: Platelet Count 78 10^3/uL (130-400); RBC Morphology Normal
[2025-05-25] MEDS: Immune Globulin-Privigen 40 GM/400 ML BTL IVPB ×2 (09:09→10:28)
[2025-05-25] MEDS: Normal Saline Flush 10 ML SYR IVP (09:09)
[2025-05-25 09:13] LABS: Creatine Kinase 15 U/L (46-171)
[2025-05-25 09:57] LABS: ALT 40 U/L (10-49); AST 52 U/L (<34); Albumin 3.2 g/dL (3.2-5.0); Alkaline Phosphatase 226 U/L (46-116); Anion Gap 10.3 mmol/L (3-11); BUN 47 mg/dL (9-23); Bilirubin, Total 0.5 mg/dL (0.2-1.2); CO2 28.8 mmol/L (20.0-31.0); Calcium 8.8 mg/dL (8.3-10.6); Chloride 95 mmol/L (98-107); Glucose 258 mg/dL (74-106); Potassium 5.2 mmol/L (3.5-5.1); Sodium 134 mmol/L (136-145); Total Protein 7.1 g/dL (5.7-8.2)
[2025-05-27] VITALS (8 sets, daily range): BP systolic 90–126; BP diastolic 56–77; PULSE 79–88; RESP 12–14; TEMP 36.4–36.8; O2SAT 99–100
[2025-05-27] MEDS: Immune Globulin-Privigen 10 GM/100 ML BTL IVPB (08:00)
[2025-05-27] MEDS: Normal Saline Flush 10 ML SYR IVP ×2 (08:12→11:54)
[2025-05-27] MEDS: Immune Globulin-Privigen 40 GM/400 ML BTL IVPB ×2 (09:00→10:15)
== END 2025-06-09 23:59 | disposition home or self-care (01) ==
LOC: INF 00:44
PROVIDERS: Internal Medicine; Nurse Practitioner Adult Health; PCP Family Medicine; Visit Provider Nurse Practitioner Acute Care
DX: G72.49 Other inflammatory and immune myopathies, not elsewhere classified (principal); N18.31 Chronic kidney disease, stage 3a; D50.9 Iron deficiency anemia, unspecified; Z45.2 Encounter for adjustment and management of vascular access device
CPT/HCPCS: 36591; 80053; 82550; 96365; 96366; 85025; J1459